=== PATIENT | female | born 1955 | race Caucasian/White ===

== ENCOUNTER → 2020-08-19 11:32 | Outpatient (CLI) | payer BC, SELFPAY ==
--- NOTE | ~2020-08-19 | US_ITS ---
EXAMINATION: US thyroid EXAM DATE: 08/19/2020 11:54 INDICATION: Fatigue, midline neck tenderness/ prominent thyroid. TECHNIQUE: Multiple grayscale and Doppler images of the thyroid were obtained (by a technologist who performed the scan) and subsequently reviewed. Individual nodules and recommendations may be reporte d in accordance with TI-RADS system as designated by the 2017 ACR White Paper TI-RADS committee. The re is no prior study for comparison. FINDINGS: Right thyroid lobe measures 4.9 x 1.4 x 1.5 cm, the left measuring 4.6 x 1.5 x 1.3 cm. Relatively ericka ogeneous thyroid echogenicity with left lobe anechoic foci 3 mm in size, benign. IMPRESSION: Unremarkable thyroid ultrasound exam. Reviewed, dictated and finalized at location A.
== END ==
PROVIDERS: PCP Family Medicine; Visit Provider Family Medicine
DX: R53.83 Other fatigue (principal); E04.9 Nontoxic goiter, unspecified
CPT/HCPCS: 76536

== ENCOUNTER 2020-11-06 10:11 | Emergency (ER) | payer BC, SELFPAY ==
--- NOTE | ~2020-11-06 | XR_ITS ---
EXAMINATION: XR ankle RT min 3V INDICATION: Right ankle pain TECHNIQUE: Four views of the right ankle are obtained COMPARISON: None available FINDINGS: Bone alignment is normal. No ankle fracture is identified. The soft tissues are unremarkabl e. Dorsal and plantar calcaneal enthesophytes are noted. IMPRESSION: 1. No acute osseous abnormality of the ankle. Reviewed, dictated and finalized at location A.
--- NOTE | ~2020-11-06 | XR_ITS ---
EXAMINATION: XR foot RT min 3V DATE: 11/06/2020 10:42 INDICATION: Right foot pain TECHNIQUE: Dorsoplantar, lateral, and 2 oblique views of the right foot were obtained. COMPARISON: None. FINDINGS: There is mild cortical irregularity at the lateral base of the fifth metatarsal. Bone align ment is normal. There is mild osteoarthritis at the first metatarsophalangeal joint as well as severa l interphalangeal joints. Dorsal and plantar calcaneal enthesophytes are noted. IMPRESSION: 1. Mild cortical irregularity at the lateral base of the fifth metatarsal which could reflect age-ind eterminate fracture. Reviewed, dictated and finalized at location A. IMPRESSION: 1. Mild cortical irregularity at the lateral base of the fifth metatarsal which could reflect age-indeterminate fracture.
[2020-11-06 10:19] VITALS: BP 194/73; PULSE 80; RESP 18; TEMP 36.6; O2SAT 95
--- NOTE | 2020-11-06 11:30 | ED.GENADULT ---
HPI - General Adult General Chief complaint: Extremity Injury, Lower Stated complaint: right foot pain Time Seen by Provider: 11/06/20 10:18 Source: patient and RN notes reviewed Mode of arrival: ambulatory Limitations: no limitations History of Present Illness HPI narrative: Patient is 65-year-old female who presents to emergency department for evaluation of right midfoot pain along the plantar aspect worse with weightbearing and activity injured the foot while mis-stepping a day ago has continued to have pain has not been seen for this complaint is not taken anything for symptoms presents in no distress has been able to bear weight Related Data Home Medications Medication Instructions Recorded Confirmed aspirin 81 mg tablet,delayed 81 mg PO DAILY 11/03/20 11/03/20 release exenatide microspheres 2 mg/0.85 2 mg SUBCUT WEEKLY 11/03/20 11/03/20 mL subcutaneous auto-injector fluticasone 500 mcg-salmeterol 50 1 inh INHALATION Q12H 11/03/20 11/03/20 mcg/dose blistr powdr for inhalation gabapentin 300 mg capsule 300 mg PO TID 11/03/20 11/03/20 psyllium husk 3.4 gram/5.4 gram 1 tbsp PO BID 11/03/20 11/03/20 oral powder biotin 1 mg PO DAILY 11/06/20 Allergies Allergy/AdvReac Type Severity Reaction Status Date / Time tetanus toxoid, adsorbed Allergy Mild Swelling/REDNESS Verified 11/06/20 10:26 AT SITE oxaliplatin Allergy Other Verified 11/06/20 10:31 Review of Systems Review of Systems: All systems reviewed & are unremarkable except as noted in HPI and below PMFSH Past Medical History Medical History BRCA gene mutation positive in female CKD (chronic kidney disease) stage 3, GFR 30-59 ml/min Compulsive buying Compulsive eating patterns Encounter for vaccination Hot flashes due to surgical menopause Ocular migraine VIOLETTE on CPAP Polypharmacy Post-phlebitic syndrome Surgical History Surgical History H/O: hysterectomy Family History Family History Father Patient's father is Other Depression Diabetes mellitus Family history of cardiovascular disease Family history of malignant neoplasm Malignant neoplasm of prostate Social History Social History Smoking status: Former smoker Smoking end date: 05/06/12 Alcohol intake: never Gender identity (if verbalized by the patient): Female Exam Narrative: Exam Narrative: GENERAL: Well-appearing, well-nourished, and in no acute distress. HEAD: Normocephalic, atraumatic. EYES: PERRLA and EOMI. ENT: Nares clear, no rhinorrhea or epistaxis. Mucous membranes moist. CHEST: Clear to auscultation. No respiratory distress. No wheezes rales or rhonchi HEART: Regular rate and rhythm. No murmur heard. Normal peripheral pulses. EXTREMITIES: Normal range of motion. No edema. Tenderness of the plantar aspect of the midfoot remainder of foot and ankle nontender no deformities. No tender at the base of the fifth metatarsal SKIN: Warm, dry, no rash. NEURO: No focal deficits. Alert and oriented x3. Neurovascularly intact PSYCH: Normal mood and affect. Course Course Emergency Course: Patient in the room no distress aware of case findings treatment plan diagnosis agreeing to follow-up as instructed Vital Signs Vital signs: Vital Signs Temperature 97.9 F 11/06/20 10:19 Pulse Rate 80 11/06/20 10:19 Respiratory Rate 18 11/06/20 10:19 Blood Pressure 194/73 H 11/06/20 10:19 Pulse Oximetry 95 11/06/20 10:19 Temperature 97.9 F 11/06/20 10:19 Pulse Rate 80 11/06/20 10:19 Respiratory Rate 18 11/06/20 10:19 Blood Pressure 194/73 H 11/06/20 10:19 Pulse Oximetry 95 11/06/20 10:19 Medical Decision Making MDM Narrative Medical decision making narrative: Patients injury or pain i
[2020-11-06 11:31] VITALS: BP 164/86; PULSE 64; RESP 18; O2SAT 98
[2020-11-06 11:38] VITALS: BP 164/84; PULSE 64; RESP 18; O2SAT 99
== END 2020-11-06 11:39 | disposition home or self-care (01) ==
PROVIDERS: Emergency Provider Emergency Medicine; PCP Family Medicine
DX: M79.671 Pain in right foot (principal); N18.30 Chronic kidney disease, stage 3 unspecified; G47.30 Sleep apnea, unspecified
CPT/HCPCS: 73610; 73630; 99283

== ENCOUNTER 2022-04-09 00:28 | Day surgery (SDC) | payer BC, SELFPAY ==
[2022-03-21 13:50] VITALS: BMI 35.4
[2022-04-09 08:11] VITALS: BP 167/82; PULSE 82; RESP 18; TEMP 36.1; O2SAT 96; BMI 35.6
[2022-04-09] MEDS: LACTATED RINGERS 1,000 ML 150 ML IV CONT (08:21)
--- NOTE | 2022-04-09 08:43 | WPDANESEPPF ---
Anes - Initial Pre Proc Eval Procedure: Operation Date: 04/09/22 09:30 Proposed Procedures p Screening Colonoscopy - Santiago Gilbert MD Date/Time: 04/09/22 08:43 Surgeon: Santiago Gilbert MD Pre Op Diagnosis: hx of colon cancer Patient Data Age: 66 Gender: F Height: 1.75 m Weight: 109.5 kg Last Vital Signs Temp 36.1 C L 04/09/22 08:11 Pulse 82 04/09/22 08:11 Resp 18 04/09/22 08:11 BP 167/82 H 04/09/22 08:11 Pulse Ox 96 04/09/22 08:11 O2 Del Method Room Air 04/09/22 08:11 Allergies Allergy/AdvReac Type Severity Reaction Status Date / Time tetanus toxoid, adsorbed Allergy Mild Swelling/REDNESS Verified 04/09/22 08:10 AT SITE oxaliplatin Allergy Other Verified 04/09/22 08:10 Home Medications Medication Instructions Recorded Confirmed Type ondansetron HCl 4 mg tablet 4 mg PO Q6H PRN nausea and 02/22/21 04/09/22 Rx (Zofran) vomiting #30 tabs tramadol 50 mg tablet 50 mg PO Q8H PRN pain #30 tabs 05/26/21 04/09/22 Rx psyllium husk 3.4 gram/5.4 gram 1 tbsp PO BID PRN Fatigue 08/15/21 04/09/22 History oral powder (Metamucil) topiramate 25 mg tablet (Topamax) 25 mg PO TID #90 tabs 10/09/21 04/09/22 Rx fluticasone 500 mcg-salmeterol 50 1 inh inhalation Q12H 11/07/21 04/09/22 History mcg/dose blistr powdr for inhalation (Advair Diskus) omeprazole 20 mg capsule,delayed 20 mg PO DAILY #30 caps 11/17/21 04/09/22 Rx release alprazolam 0.25 mg tablet 0.25 mg PO DAILY PRN anxiety #30 11/22/21 04/09/22 Rx tabs propranolol 60 mg capsule,24 See Rx Instructions .Route 01/02/22 04/09/22 Rx hr,extended release .COMPLEX #90 caps levothyroxine 75 mcg tablet See Rx Instructions .Route 01/26/22 04/09/22 Rx .COMPLEX #90 tabs duloxetine 60 mg capsule,delayed See Rx Instructions .Route 02/13/22 04/09/22 Rx release .COMPLEX #90 caps sodium,potassium,mag sulfates 17.5 See Rx Instructions PO .COMPLEX 02/20/22 04/09/22 Rx gram-3.13 gram-1.6 gram oral soln #354 mL (Suprep Bowel Prep Kit) amlodipine 5 mg tablet 5 mg PO DAILY #90 tabs 03/17/22 04/09/22 Rx nortriptyline 10 mg capsule See Rx Instructions .Route 03/23/22 04/09/22 Rx .COMPLEX #90 caps Patient hx anesthesia problems: none Family hx anesthesia problems: none Results Review: All pre-operative results and documents have been reviewed as part of the pre-operative evaluation. [facility] Past Medical History Medical History BRCA gene mutation positive in female Breast cancer CKD (chronic kidney disease) stage 3, GFR 30-59 ml/min Colon cancer Compulsive buying Compulsive eating patterns Diabetes mellitus Encounter for vaccination History of breast cancer History of colon cancer in adulthood Hot flashes due to surgical menopause Hyperalgesia Ocular migraine VIOLETTE on CPAP Polypharmacy Post-phlebitic syndrome Postnasal drip Surgical History Surgical History (Updated 04/09/22 @ 08:44 by Alverto Padilla MD) H/O: hysterectomy History of colon resection Family History Family History Father Patient's father is Cancer Diabetes mellitus Hypertension Mother Diabetes mellitus Depression Cerebrovascular accident Heart disease Alzheimer disease Sibling Cancer Depression Thyroid disorder Daughter Thyroid disorder Grandparent Cancer Depression Heart disease Other Family history of cardiovascular disease Family history of malignant neoplasm Malignant neoplasm of prostate Social History Social History Smoking packs per day: 1 Smoking cigarettes per day: 20.0 Years smoked: 40 Smoking pack-years: 40.00 Smoking status: Former smoker Tobacco type: cigarettes Smoking end date: 05/06/12 Alcohol intake: former Substance use: never Substance use type: does not use Living arrangements: a
--- NOTE | 2022-04-09 08:57 | PM.HPGS ---
History of Present Illness History of Present Illness Consent: Risks, benefits, and alternatives have been discussed and questions answered. Patient agrees to proceed with procedure. Chief complaint: hx of colon cancer Narrative: Aleah Gerber is a 66 year old female Presents for screening colonoscopy. Patient has a history of colon cancer resected 2018. Patient reports that her current weight appetite and bowel movements are normal. Patient denies abdominal pain. She has had no bleeding. Family history noncontributory. Patient presents today for surveillance colonoscopy. Review of Systems Review of Systems: Review of systems noncontributory. [facility] Past Medical History Medical History (Updated 04/09/22 @ 08:59 by Santiago Gilbert MD) BRCA gene mutation positive in female Breast cancer CKD (chronic kidney disease) stage 3, GFR 30-59 ml/min Colon cancer Compulsive buying Compulsive eating patterns Diabetes mellitus Encounter for vaccination History of breast cancer History of colon cancer in adulthood Hot flashes due to surgical menopause Hyperalgesia Ocular migraine VIOLETTE on CPAP Polypharmacy Post-phlebitic syndrome Postnasal drip Surgical History Surgical History (Updated 04/09/22 @ 08:44 by Alverto Padilla MD) H/O: hysterectomy History of colon resection Family History Family History Father Patient's father is Cancer Diabetes mellitus Hypertension Mother Diabetes mellitus Depression Cerebrovascular accident Heart disease Alzheimer disease Sibling Cancer Depression Thyroid disorder Daughter Thyroid disorder Grandparent Cancer Depression Heart disease Other Family history of cardiovascular disease Family history of malignant neoplasm Malignant neoplasm of prostate Social History Social History Smoking packs per day: 1 Smoking cigarettes per day: 20.0 Years smoked: 40 Smoking pack-years: 40.00 Smoking status: Former smoker Tobacco type: cigarettes Smoking end date: 05/06/12 Alcohol intake: former Substance use: never Substance use type: does not use Living arrangements: alone Gender identity (if verbalized by the patient): Female Spiritual care concerns: No Meds Home Medications and Allergies Home Medications Medication Instructions Recorded Confirmed Type ondansetron HCl 4 mg tablet 4 mg PO Q6H PRN nausea and 02/22/21 04/09/22 Rx (Zofran) vomiting #30 tabs tramadol 50 mg tablet 50 mg PO Q8H PRN pain #30 tabs 05/26/21 04/09/22 Rx psyllium husk 3.4 gram/5.4 gram 1 tbsp PO BID PRN Fatigue 08/15/21 04/09/22 History oral powder (Metamucil) topiramate 25 mg tablet (Topamax) 25 mg PO TID #90 tabs 10/09/21 04/09/22 Rx fluticasone 500 mcg-salmeterol 50 1 inh inhalation Q12H 11/07/21 04/09/22 History mcg/dose blistr powdr for inhalation (Advair Diskus) omeprazole 20 mg capsule,delayed 20 mg PO DAILY #30 caps 11/17/21 04/09/22 Rx release alprazolam 0.25 mg tablet 0.25 mg PO DAILY PRN anxiety #30 11/22/21 04/09/22 Rx tabs propranolol 60 mg capsule,24 See Rx Instructions .Route 01/02/22 04/09/22 Rx hr,extended release .COMPLEX #90 caps levothyroxine 75 mcg tablet See Rx Instructions .Route 01/26/22 04/09/22 Rx .COMPLEX #90 tabs duloxetine 60 mg capsule,delayed See Rx Instructions .Route 02/13/22 04/09/22 Rx release .COMPLEX #90 caps sodium,potassium,mag sulfates 17.5 See Rx Instructions PO .COMPLEX 02/20/22 04/09/22 Rx gram-3.13 gram-1.6 gram oral soln #354 mL (Suprep Bowel Prep Kit) amlodipine 5 mg tablet 5 mg PO DAILY #90 tabs 03/17/22 04/09/22 Rx nortriptyline 10 mg capsule See Rx Instructions .Route 03/23/22 04/09/22 Rx .COMPLEX #90 caps Allergies Allergy/AdvReac Type Severity Reaction Status Date / Time tetanus toxoid, adsorbed Allergy Mild Swelling/REDNESS Verifi
[2022-04-09 09:54] VITALS: BP 120/57; PULSE 77; RESP 19; O2SAT 96
[2022-04-09 10:04] VITALS: BP 110/55; PULSE 66; RESP 18; O2SAT 97
[2022-04-09 10:14] VITALS: BP 112/58; PULSE 73; RESP 21; O2SAT 98
== END 2022-04-09 10:20 | disposition home or self-care (01) ==
PROVIDERS: PCP Internal Medicine; Visit Provider Internal Medicine Gastroenterology
PROC: 0DJD8ZZ Inspection of Lower Intestinal Tract, Via Natural or Artificial Opening Endoscopic (ICD-10-PCS; CPT 45378; principal; 2022-04-09 09:30)
DX: Z12.11 Encounter for screening for malignant neoplasm of colon (principal); K63.5 Polyp of colon; K64.8 Other hemorrhoids; Z98.0 Intestinal bypass and anastomosis status; Z90.49 Acquired absence of other specified parts of digestive tract; Z85.038 Personal history of other malignant neoplasm of large intestine; Z15.09 Genetic susceptibility to other malignant neoplasm; Z85.3 Personal history of malignant neoplasm of breast; E11.22 Type 2 diabetes mellitus with diabetic chronic kidney disease; N18.30 Chronic kidney disease, stage 3 unspecified; G47.33 Obstructive sleep apnea (adult) (pediatric); Z87.891 Personal history of nicotine dependence; E66.9 Obesity, unspecified; Z68.35 Body mass index [BMI] 35.0-35.9, adult
CPT/HCPCS: 45385; 88305; J2704; J7120

== ENCOUNTER 2023-07-23 11:00 | Outpatient (RCR) | payer MEDICARE, SELFPAY ==
--- NOTE | 2023-06-18 09:26 | OPREHPOC ---
Outpatient Therapy Plan of Care This is a Multidisciplinary Plan of Care that may contain components documented by all disciplines (PT, OT, and ST.) PT Problem 1 PT Problem #1 Knowledge Deficit PT Goal 1 Goal Pt to be IND with issued HEP Target Visit 8 PT Problem 2 PT Problem #2 Pain PT Goal 1 Goal Pt to report back pain no greater than 3/10 in the last week. Target Visit 8 PT Goal 2 Goal Pt to report 75% improvement in symptoms when transitioning from sit <> stand. Target Visit 8 PT Problem 3 PT Problem #3 Impaired Functional Mobil PT Goal 1 Goal Pt to demonstrate functional lift and carry with 20lb without an increase in symptoms. Target Visit 8 PT Problem 4 PT Problem #4 Impaired Gait PT Goal 1 Goal Pt to demonstrate neutral alignment during upright standing. Target Visit 8
--- NOTE | 2023-06-18 09:26 | PTOPEVAL1 ---
Assessment and note entered by Surya Blanco, PT, DPT Evaluation Information Assessment Status Evaluation Diagnosis low back pain, spinal stenosis Onset chronic Subjective Information Pt states 90% of the time when she gets up from a sitting position, she can take a few steps without issues, but then she has to stop cause her zenaida legs get tingly (anterior thigh), she states she stands there for 20-30s slightly bending forward, then she can walk normally. She can walk/stand without limitations, once she gets past the first 1-2 minutes. Reported Pain Level Pain Score 0: Self Report Assessment PT Clinical Summary Aleah presents to therapy today for her initial evaluation with a diagnosis of lumbar spinal stenosis, she reports symptoms consistent with this diagnosis. She stands with an anterior weight shift, increased lumbar lordosis, and anterior pelvis. She demonstrates poor core strength and poor control with functional tasks. Skilled therapy services are indicated to address the deficits noted above, to improve core strength, to manage pain, and to return to PLOF. Plan of Care Interventions Electrical Stimulation,Gait Training,Hot Pack/Cold Pack,Manual Therapy,Mechanical Traction,Neuro Re- education,Patient/Caregiver Educati,Therapeutic Activities,Therapeutic Exercise PT Services Indicated Yes Treatment Frequency and 2x/wk for 8 visits. Duration These treatments will address the objective and functional deficits as defined above. The patient will be advanced safely and appropriately in order for the patient to progress towards his/her prior level of function. Additional exercises will be introduced and as well as a comprehensive home exercise program upon discharge, if needed, ?to ensure carryover of functional gains achieved in the clinic. This treatment plan has been reviewed and agreement upon by the patient.
--- NOTE | 2023-07-05 12:36 | PCPTNOTE ---
Patient called to cancel this date due due to other health concerns.
--- NOTE | 2023-07-08 08:52 | PCPTNOTE ---
Patient called & cancelled scheduled appointment this date due to waiting for doctor to give her test results prior to continuing.
--- NOTE | 2023-07-15 12:59 | PCPTNOTE ---
Patient called & cancelled scheduled appointment this date due to getting her appointment time confused. She has been rescheduled.
--- NOTE | 2023-07-23 14:38 | PTOPDC ---
Assessment and note entered by Surya Blanco, PT, DPT Evaluation Information Assessment Status Discharge Diagnosis low back pain, spinal stenosis Onset chronic Subjective Information Pt states when she remembers to do the correct things about her posture and body mechanics she can work to avoid her pain. She states when she does her exercises she has little to no pain. She states she is able to ride a bike now for the first time in many years. When she forgets and moves into poor positions she will get pain like before. Reported Pain Level Pain Score 0: Self Report Assessment PT Clinical Summary Aleah presents to therapy today for her progress report following 7 visits of skilled therapy to treat her diagnosis of lumbar spinal stenosis. She reports and demonstrates a good understanding of proper standing and lifting postures. She reports no pain when her is alert of her body positions. She has met or progressed well towards her therapy goals and no longer requires skilled therapy services. She will be discharged at this time.
== END 2023-07-23 14:54 | disposition home or self-care (01) ==
LOC: ANHGOSHPT 11:00
PROVIDERS: PCP Internal Medicine; Visit Provider Internal Medicine
DX: M48.00 Spinal stenosis, site unspecified (principal)
CPT/HCPCS: 97110; 97112; 97161; 97530

== ENCOUNTER 2023-11-18 11:08 | Outpatient (CLI) | payer MEDICARE, SELFPAY ==
[2023-11-18 16:01] LABS: Erythrocyte Sedimentation Rate 43 mm/hr (0-20)
[2023-11-21 03:18] LABS: Triiodothyronine T3 Free 2.2 pg/mL (2.3-4.2)
== END 2023-11-18 11:09 | disposition home or self-care (01) ==
LOC: ANHGOSHLAB 11:10
PROVIDERS: PCP Internal Medicine; Visit Provider Internal Medicine
DX: E03.9 Hypothyroidism, unspecified (principal); R51.9 Headache, unspecified
CPT/HCPCS: 36415; 84481; 85652

== ENCOUNTER 2024-02-17 13:47 | Outpatient (CLI) | payer MEDICARE, SELFPAY ==
--- NOTE | ~2024-02-17 | US_ITS ---
US renal BI Ordering provider: Batsheva Mike MD History: . N18.32 - Chronic kidney disease, stage 3b . Comparison: None. Technique: Ultrasound bilateral kidneys. Findings: RIGHT KIDNEY: Measures 11.8x 5.9x 5.7 cm in length which is normal in size. Simple cyst is seen in th e lower pole measuring 1 x 1 x 1 cm.. No renal mass or visualized echogenic stones. Otherwise, normal echotexture and contour. No hydronephrosis. Normal renal cortical thickness. LEFT KIDNEY: Measures 10.5x 5.4x 4.6 cm in length which is normal in size. No renal cysts. No renal m ass or visualized echogenic stones. Otherwise, normal echotexture and contour. No hydronephrosis. sergey al cortical thinning. Cortex measures 0.8 cm. BLADDER: Normal. Ureteral jets were seen bilaterally. The bladder measures 11 x 9 x 8 cm with a Volum e of 643 mL.. IMPRESSION: left kidney thin cortex. Simple cyst in the right kidney lower pole. Reviewed, dictated and finalized at location A.
== END 2024-02-17 13:48 | disposition home or self-care (01) ==
PROVIDERS: PCP Internal Medicine; Visit Provider Internal Medicine Nephrology
DX: R93.422 Abnormal radiologic findings on diagnostic imaging of left kidney (principal); N28.1 Cyst of kidney, acquired; I12.9 Hypertensive chronic kidney disease with stage 1 through stage 4 chronic kidney disease, or unspecified chronic kidney disease; E11.22 Type 2 diabetes mellitus with diabetic chronic kidney disease; N18.32 Chronic kidney disease, stage 3b
CPT/HCPCS: 76775

== ENCOUNTER 2024-04-16 13:29 | Outpatient (CLI) | payer MEDICARE, SELFPAY ==
--- NOTE | ~2024-04-16 | XR_ITS ---
EXAMINATION: XR chest 2V 04/16/2024 13:52 INDICATION: Fever PROCEDURE: 2 view chest COMPARISON: 09/26/2018 FINDINGS: The lungs are clear. The cardiomediastinal silhouette is within normal limits. There are no pleural effusions. There is no pneumothorax suspected. There is dextroscoliosis of the thoracic spine. IMPRESSION: 1: NO ACUTE CARDIOPULMONARY DISEASE. Reviewed, dictated and finalized at location B. D LABORER
== END 2024-04-16 13:30 | disposition home or self-care (01) ==
PROVIDERS: PCP Internal Medicine; Visit Provider Clinical Nurse Specialist
DX: R50.9 Fever, unspecified (principal)
CPT/HCPCS: 71046

== ENCOUNTER 2024-04-19 16:12 | Emergency (ER) | payer MEDICARE, SELFPAY ==
[2024-04-19] VITALS (9 sets, daily range): BP systolic 119–135; BP diastolic 56–76; PULSE 73–89; RESP 16–21; TEMP 36.4; O2SAT 95–100
--- NOTE | ~2024-04-19 | CT_ITS ---
EXAMINATION: CTA chest PE protocol DATE: 04/19/2024 18:40 INDICATION: dyspnea/HX OF PE TECHNIQUE: Computed tomography angiography (CTA) of the chest was performed with 100 mL Omnipaque-350 intravenous contrast timed to evaluate the pulmonary arteries. Coronal maximum intensity projection 3D-reconstructions were created by the technologist. The dose-length product (DLP) was 381.84 mGy-cm. Automated exposure control and iterative reconstruction technique were employed. COMPARISON: X-ray chest, 1224; CT cap 11/02/2017. FINDINGS: Lung parenchyma and airways: Dependent and medial subsegmental consolidation in the right lower lobe with scattered areas of centrilobular nodular opacities and groundglass opacities. Patent airways. Br onchial wall thickening. Mild septal thickening. Pleura: Unremarkable. Thoracic inlet, axillae and chest wall: Status post bilateral mastectomy. 1.1 x 6.1 x 6.3 cm fluid co llection in the subcutaneous fat of the left anterolateral chest. Thoracic aorta: No significant dilation. No dissection. Mediastinum: Normal. Heart and pericardium: Minimal aortic valve calcification. Coronary artery calcifications: Mild. Upper abdomen: Cholelithiasis, without inflammatory changes. Bones: No acute osseous finding. Pulmonary arteries: Study quality: Adequate. No pulmonary emboli detected. IMPRESSION: No CT evidence of acute pulmonary embolus. Right lower lobe opacities concerning for infection or aspiration. Mild interstitial edema and/or bro nchiolitis. Subcutaneous fluid collection in the subcutaneous fat of the left anterolateral chest, May represent a chronic postoperative seroma. Correlate for signs of infection. Reviewed, dictated and finalized at location [facility] [employer] IMPRESSION: No CT evidence of acute pulmonary embolus. Right lower lobe opacities concerning for infection or aspiration. Mild interst itial edema and/or bronchiolitis. Subcutaneous fluid collection in the subcutaneous fat of the left anterolateral chest, May represent a chronic postoperative seroma. Correlate for signs of in fection.
--- NOTE | 2024-04-19 17:31 | ECG_ITS ---
Test Date: 2024-04-19 18:02:44 Measurements Intervals [place] Rate: 75 P: 41 OK: 194 QRS: -17 QRSD: 84 T: 31 QT: 347 QTc: 389 Interpretive Statements SINUS RHYTHM No previous ECG available for comparison Electronically Signed On 04-19-2024 22:03:00 CONTACT WORKER by Mari Velarde M.D.
--- NOTE | 2024-04-19 17:33 | ED_ITS ---
HPI - SOB/Dyspnea General Chief Complaint: Shortness of Breath/Dyspnea Stated Complaint: sob Time Seen by Provider: 04/19/24 16:38 History of Present Illness HPI Narrative: Patient is a 68-year-old female who presented to the ER with complaints of shortness of breath. She reports she has a history of COPD and had a chest x-ray ordered by her PCP on . At that time she was also started on a Z-Jose Juan. Patient reports her strong, productive cough got better after I started the antibiotics, but this morning I started having an exacerbation. She reports she does not have any inhalers home. 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 Patient currently endorses a dry, nonproductive cough. She reports she still has 2 days on her Z-Jose Juan. Patient denies any chest pain, back pain, history of CHF. She reports she does think she has had fevers intermittently throughout the week. Patient's medical history includes breast cancer and colon cancer. Related Data Allergies Allergy/AdvReac Type Severity Reaction Status Date / Time tetanus toxoid, adsorbed Allergy Mild Swelling/REDNESS Verified 04/19/24 16:59 AT SITE oxaliplatin Allergy Other Verified 04/19/24 16:59 Review of Systems 2 Review of Systems: All systems reviewed & are unremarkable except as noted in HPI and below PMFSH Past Medical History Medical History Cerebrovascular disease Hyperlipidemia associated with type 2 diabetes mellitus Essential hypertension Breast cancer Postnasal drip Hyperalgesia Diabetes mellitus History of colon cancer in adulthood History of breast cancer Breast cancer Colon cancer Ocular migraine Encounter for vaccination CKD (chronic kidney disease) stage 3, GFR 30-59 ml/min VIOLETTE on CPAP Polypharmacy Hot flashes due to surgical menopause Post-phlebitic syndrome Compulsive eating patterns Compulsive buying BRCA gene mutation positive in female Surgical History Surgical History History of bilateral mastectomy History of colon resection H/O: hysterectomy Family History Family History Father Patient's father is Cancer Diabetes mellitus Hypertension Mother Diabetes mellitus Depression Cerebrovascular accident Heart disease Alzheimer disease Sibling Cancer Depression Thyroid disorder Daughter Thyroid disorder Grandparent Cancer Depression Heart disease Other Family history of cardiovascular disease Family history of malignant neoplasm Malignant neoplasm of prostate Social History Social History Smoking packs per day: 1 Smoking cigarettes per day: 20.0 Years smoked: 40 Smoking pack-years: 40.00 Smoking status: Former smoker Tobacco type: cigarettes Smoking end date: 05/06/12 Alcohol intake: former Substance use: never Substance use type: does not use Do You Feel Safe in your Home?: Yes Lack of Transportation: No Lack of Food: Never True Current Housing: I Have Housing Concerned About Future Housing: No Difficulty Paying Gas/Electric Bills: No Difficulty Paying for Meds: YES Currently Unemployed: No Education: High School Diploma/GED Difficulty w/ Childcare or Family Care: No Living arrangements: alone Gender identity (if verbalized by the patient): Female Spiritual care concerns: No Exam 2 Narrative: GENERAL: Well appearing, well-nourished, non-toxic, in no acute distress. HEAD: Normocephalic, atraumatic. NECK: Supple. No adenopathy, no masses. RESPIRATORY: Airway patent, respirations nonlabored. Clear to auscultation bilaterally, no rales, rhonchi, wheezing. CARDIOVASCULAR: Regular rate and rhythm without murmurs, rubs, or gallops. Peripheral pulses 2+ and equal bilaterally. ABDOMINAL: Soft, nontender, nondistended, no hepatosplenomegaly. Normoactive BS. MUSCULOSKELETAL: Moves all extremities. Strength/ROM intact without gross deformities. SKIN: Warm, dry, normal color. No rashes. NEURO: A&O X3. Speech clear. Cranial nerves II-XII grossly intact. No ataxic movements. PSYCHIATRIC: Appropriate mood and affect. Normal interaction. Course Vital Signs Vital signs: Vital Signs Temperature 36.4 C 04/19/24 16:14 Pulse Rate 89 04/19/24 16:14 Respiratory Rate 16 04/19/24 16:14 Blood Pressure 131/69 04/19/24 16:14 Pulse Oximetry 98 04/19/24 16:14 Oxygen Delivery Room Air 04/19/24 16:14 Temperature 36.4 C 04/19/24 16:14 Pulse Rate 82 04/19/24 20:06 Respiratory Rate 21 H 04/19/24 20:06 Blood Pressure 129/72 04/19/24 20:06 Pulse Oximetry 95 04/19/24 20:06 Oxygen Delivery Room Air 04/19/24 16:56 MDM - SOB/Dyspnea MDM Narrative Medical decision making narrative: Patient is a 68-year-old female who presented to the ER with complaints of shortness of breath. She reports she has a history of COPD and had a chest x-ray ordered by her PCP on . At that time she was also started on a Z-Jose Juan. Patient reports her strong, productive cough got better after I started the antibiotics, but this morning I started having an exacerbation. She reports she does not have any inhalers home. 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 Patient currently endorses a dry, nonproductive cough. She reports she still has 2 days on her Z-Jose Juan. Patient denies any chest pain, back pain, history of CHF. She reports she does think she has had fevers intermittently throughout the week. Patient's medical history includes breast cancer and colon cancer. Labs Ordered: CBC, CMP, PTT, INR, Magnesium, urinalysis, lactic acid, BNP, blood cultures Imaging Ordered: CTA PE scan Results: Pt's CTA PE scan indicates No CT evidence of acute pulmonary embolus. Right lower lobe opacities concerning for infection or aspiration. Mild interstitial edema and/or bronchiolitis. Subcutaneous fluid collection in the subcutaneous fat of the left anterolateral chest, May represent a chronic postoperative seroma. Correlate for signs of infection. Diagnosis: community acquired pneumonia, COPD exacerbation, UTI, yeast infection Risks: BAP-65 Score for Acute Exacerbation of COPD from [employer] on 04/19/2024 All calculations should be rechecked by clinician prior to use RESULT SUMMARY: Class II BAP 0, age >=5 years Routine management of COPD exacerbation 1.0 % In-hospital mortality 0.2% requiring intubation within 48 hrs INPUTS: BUN >=5 mg/dL (8.9 mmol/L) ?> 0 = No Altered mental status ?> 0 = No Pulse >=09 beats/min ?> 0 = No Age, years ?> 1 = >=5 CURB-65 Score for Pneumonia Severity from [employer] on 04/19/2024 All calculations should be rechecked by clinician prior to use RESULT SUMMARY: 2 points Moderate risk group: 6.8% 30-day mortality. Consider inpatient treatment or outpatient with close followup. INPUTS: Confusion ?> 0 = No BUN >19 mg/dL (>7 mmol/L urea) ?> 1 = Yes Respiratory Rate >=0 ?> 0 = No Systolic BP <90 mmHg or Diastolic BP <=0 mmHg ?> 0 = No Age >=5 ?> 1 = Yes Consults: None needed Patient Education/Shared MDM: DuoNeb ordered for patient, along with Solu- Medrol. Patient endorses substantial release in her breathing after medication administration. Results of CT scan shared with the patient. Patient will receive IV antibiotics to treat her pneumonia and UTI. She will be sent home with oral antibiotics, Diflucan and inhaler. Patient advised to complete her Z- Jose Juan at home. She was also advised to follow-up her primary care provider as soon as possible. Patient verbalized understanding and is in agreement with plan. All questions answered. Vital signs stable at time of discharge. Differential Diagnosis Differential diagnosis: Likely acute exacerbation of chronic obstructive airways disease, congestive heart failure, community acquired pneumonia, asthma with exacerbation, pulmonary embolism and other (UTI) Lab Data Attestation: I reviewed the patient's lab results. 04/19/24 17:52 04/19/24 17:52 Labs: Lab Results 04/19/24 04/19/24 Range/Units 17:52 18:20 WBC 12.2 H (4.5-10.0) K/mm3 RBC 3.80 L (4.2-5.4) M/mm3 Hgb 11.3 L (12.0-15.0) g/dL Hct 34.3 L (37.0-47.0) % MCV 90.3 (80-100) fl MCH 29.7 (26-34) pg MCHC 32.9 (32-36) g/dl RDW 12.9 (11.5-14.5) % Plt Count 283 (150-375) k/mm3 MPV 9.1 (7.4-10.4) fl Immature Gran % (Auto) 0.7 H (0-0.5) % Neut % (Auto) 78.7 H (45.5-73.1) % Lymph % (Auto) 10.1 L (18.3-44.2) % [place] % (Auto) 7.5 (2.6-8.5) % Eos % (Auto) 2.5 (0-4.4) % Baso % (Auto) 0.5 (0.2-1.2) % Lymph # (Auto) 1.23 (0.9-3.2) K/mm3 [place] # (Auto) 0.9 H (0.1-0.6) K/mm3 Eos # (Auto) 0.3 (0-0.3) K/mm3 Baso # (Auto) 0.1 (0.0-0.1) K/mm3 Abs Immat Gran (auto) 0.09 H (0.00-0.031) K/mm3 Absolute Neuts (auto) 9.6 H (1.3-6.7) K/mm3 Absolute Nucleated RBC 0.000 (0.0-0.012) K/mm3 Nucleated RBC % 0.0 (0.0-0.2) % PT 14.9 H (11.1-14.7) Seconds INR 1.1 APTT 30.3 (22.3-36.8) Seconds Sodium 137 (137-145) mmol/L Potassium 3.9 (3.4-5.0) mmol/L Chloride 105 (98-107) mmol/L Carbon Dioxide 24 (22-30) mmol/L Anion Gap 8 (4-12) mmol/L BUN 20 H (7-17) mg/dL Creatinine 1.70 H (0.7-1.0) mg/dL Estim Creat Clear Calc 36 ml/min Estimated GFR 30 L (59 - ) Glucose 122 H (65-110) mg/dL Lactic Acid 1.1 (0.7-2.0) mmol/L Calcium 9.4 (8.4-10.2) mg/dL Magnesium 2.3 (1.6-2.3) mg/dL Total Bilirubin 0.9 (0.2-1.3) mg/dL AST 141 H (14-36) U/L ALT 89 H (6-35) U/L Alkaline Phosphatase 145 H (38-126) U/L Troponin I < 0.012 (0.000-0.034) ng/mL NT-Pro-B Natriuret Pep 100 (19.9-100) pg/mL Total Protein 8.0 (6.3-8.2) g/dL Albumin 3.8 (3.5-5.1) g/dL Urine Color Dark yellow (Yellow) Urine Appearance Cloudy H (Clear) Urine pH 5.5 (5.0-9.0) Ur Specific [place] 1.027 (1.001-1.035) Urine Protein 2+ H (Negative) mg/dL Urine Glucose (UA) Negative (Negative) mg/dL Urine Ketones Trace H (Negative) mg/dL Ur Blood (Man) Negative (Negative) Urine Nitrate Negative (Negative) Urine Bilirubin 1+ H (Negative) Urine Urobilinogen 2.0 H (<2.0) mg/dL Add Ur Microanalysis Reviewed Leukocyte Esterase Rfl 1+ H (Negative) BERT/UL Urine RBC 3-5 H (0-2) /hpf Urine WBC 11-20 H (0-3) /hpf Ur Squamous Epith Cells Moderate (Few) /hpf Urine Bacteria 3+ H /hpf Urine Casts 6-10 Urine Yeast (Budding) Present H (None) /hpf Imaging Data Attestation: I personally reviewed and interpreted this imaging study as follows: Radiologist's impression: Impressions Chest CTA 04/19/24 19:01 IMPRESSION: No CT evidence of acute pulmonary embolus. Right lower lobe opacities concerning for infection or aspiration. Mild interstitial edema and/or bronchiolitis. Subcutaneous fluid collection in the subcutaneous fat of the left anterolateral chest, May represent a chronic postoperative seroma. Correlate for signs of infection. Discharge Plan Discharge Clinical Impression: Community acquired bacterial pneumonia, Urinary tract infection, Yeast infection of the vagina, Acute exacerbation of chronic obstructive pulmonary disease Patient Disposition: Home, Self-Care Condition: Stable Instructions: Antibiotic Form, Urinary Tract Infection in Women (ED), COPD (Chronic Obstructive Pulmonary Disease) (ED), Community Acquired Pneumonia (ED) Additional Instructions: Please return to the ER with an worsening symptoms. Follow-up with primary care provider in the next 2-3 days. Take all medications as prescribed. Patient Language: Polish Prescriptions: No Action tramadol 50 mg tablet 50 mg PO Q8H PRN (Reason: pain) Qty: 30 0RF azithromycin 250 mg tablet See Rx Instructions PO .COMPLEX Qty: 6 0RF Rx Instructions: take 500 mg today (day 1), then 250 mg for 4 days (days 2-5) PO omeprazole 20 mg capsule,delayed release(DR/EC) 20 mg PO DAILY Qty: 30 3RF Rx Instructions: Around dinner time levothyroxine 75 mcg tablet See Rx Instructions .ROUTE .COMPLEX Qty: 90 1RF Dose Instruction: TAKE 1 TABLET BY MOUTH DAILY Rx Instructions: TAKE 1 TABLET BY MOUTH DAILY topiramate 25 mg tablet See Rx Instructions .ROUTE .COMPLEX Qty: 270 0RF Dose Instruction: TAKE 1 TABLET BY MOUTH THREE TIMES DAILY Rx Instructions: TAKE 1 TABLET BY MOUTH THREE TIMES DAILY alprazolam 0.25 mg tablet 0.25 mg PO DAILY PRN (Reason: anxiety) Qty: 30 0RF duloxetine 60 mg capsule,delayed release(DR/EC) See Rx Instructions .ROUTE .COMPLEX Qty: 90 1RF Dose Instruction: TAKE 1 CAPSULE BY MOUTH DAILY Rx Instructions: TAKE 1 CAPSULE BY MOUTH DAILY rosuvastatin 10 mg tablet 10 mg PO DAILY Qty: 90 3RF propranolol 60 mg capsule,extended release 24 hr See Rx Instructions .ROUTE .COMPLEX Qty: 180 1RF Dose Instruction: TAKE 1 CAPSULE BY MOUTH DAILY Rx Instructions: TAKE 1 CAPSULE BY MOUTH bid semaglutide 1 mg/dose (4 mg/3 mL) pen injector 1 mg subcut WEEKLY Qty: 3 1RF nortriptyline 10 mg capsule See Rx Instructions .ROUTE .COMPLEX Qty: 90 1RF Dose Instruction: TAKE 1 CAPSULE BY MOUTH EVERY NIGHT AT BEDTIME Rx Instructions: TAKE 1 CAPSULE BY MOUTH EVERY NIGHT AT BEDTIME amlodipine 5 mg tablet 5 mg PO DAILY Qty: 90 1RF Follow-up/Referrals: Dat Bneito, [Primary Care Provider] -
[2024-04-19] MEDS: IPRATROPIUM 0.5 MG/ALBUTEROL SULFATE 2.5 MG AMPUL.NEB 3 ML INHALATION (17:47)
[2024-04-19] MEDS: ALBUTEROL SULFATE NEB 2.5 MG/3 ML INH INHALATION (17:47)
[2024-04-19 17:59] LABS: Basophils Absolute Auto 0.1 K/mm3 (0.0-0.1); Basophils Percent Auto 0.5 % (0.2-1.2); Eosinophils Absolute Auto 0.3 K/mm3 (0-0.3); Eosinophils Percent Auto 2.5 % (0-4.4); Hematocrit 34.3 % (37.0-47.0); Hemoglobin 11.3 g/dL (12.0-15.0); Immature Granulocyte Absolute 0.09 K/mm3 (0.00-0.031); Immature Granulocyte Percent A 0.7 % (0-0.5); Lymphocytes Absolute Auto 1.23 K/mm3 (0.9-3.2); Lymphocytes Percent Auto 10.1 % (18.3-44.2); Mean Corpuscular HGB Conc 32.9 g/dl (32-36); Mean Corpuscular Hemoglobin 29.7 pg (26-34); Mean Corpuscular Volume 90.3 fl (80-100); Mean Platelet Volume 9.1 fl (7.4-10.4); Monocytes Absolute Auto 0.9 K/mm3 (0.1-0.6); Monocytes Percent Auto 7.5 % (2.6-8.5); Neutrophils Absolute Auto 9.6 K/mm3 (1.3-6.7); Neutrophils Percent Auto 78.7 % (45.5-73.1); Platelet Count Result 283 k/mm3 (150-375); Red Cell Distribution Width 12.9 % (11.5-14.5); White Blood Count 12.2 K/mm3 (4.5-10.0)
[2024-04-19 18:10] LABS: Alanine Aminotransferase 89 U/L (6-35); Albumin Level 3.8 g/dL (3.5-5.1); Alkaline Phosphatase 145 U/L (38-126); Anion Gap 8 mmol/L (4-12); Aspartate Amino Transferase 141 U/L (14-36); Bilirubin,Total 0.9 mg/dL (0.2-1.3); Blood Urea Nitrogen 20 mg/dL (7-17); Calcium 9.4 mg/dL (8.4-10.2); Carbon Dioxide 24 mmol/L (22-30); Chloride 105 mmol/L (98-107); Estimated CRCL calculation 36 ml/min; Estimated Glomerular Filt Rate 30; Glucose 122 mg/dL (65-110); Lactic Acid Reflex 1.1 mmol/L (0.7-2.0); Magnesium 2.3 mg/dL (1.6-2.3); Potassium 3.9 mmol/L (3.4-5.0); Sodium 137 mmol/L (137-145)
[2024-04-19] MEDS: methylPREDNISolone SOD SUCC 125 MG VIAL IV PUSH (18:14)
[2024-04-19 18:20] LABS: INR 1.1; NT Pro B Type Natriuretic Pept 100 pg/mL (19.9-100); Prothrombin Time 14.9 Seconds (11.1-14.7); Troponin I < 0.012 ng/mL (0.000-0.034)
[2024-04-19 18:21] LABS: Partial Thromboplastin Time 30.3 Seconds (22.3-36.8)
[2024-04-19 18:36] LABS: Add Urine Microscopic? YES; Appearance Urine Cloudy (Clear); Bacteria Urine 3+ /hpf; Bilirubin Urine 1+ (Negative); Blood Urine Negative (Negative); Budding Yeast Urine Present /hpf; Color Urine Dark Yellow (Yellow); Glucose Urine UA Negative (Negative); Ketones Urine Trace mg/dL (Negative); Leukocyte Esterase Ur 1+ LEU/UL (Negative); Need Manual Microscopic Reviewed; Nitrate Urine Negative (Negative); Protein Urine 2+ mg/dL (Negative); Specific Grav Ur 1.027 (1.001-1.035); Squamous Epithelial Cell Urine Moderate /hpf (Few); pH Urine 5.5 (5.0-9.0)
[2024-04-19] MEDS: AZITHROMYCIN 500 MG/NS 250 ML 500 MG/250 ML BAG 250 MG IVPB (20:01)
--- OUTSIDE RECORDS SUMMARY | 2024-04-24 13:34 | XMS_ITS | Encounter Summary ---
Author Organization [facility] Address [address] [place] [address] Phone Care Team Providers Care Water And Gas Helper Name Role Phone Aft, Kianna Machado MD PhD Unavailable [phone] Santigao Gilbert MD Unavailable [phone] Abbi Ventura MD Unavailable Montse Thompson MD Unavailable [phone] Lela Hardy MD PhD Unavailable [phone] Trena Obando MD Unavailable [phone] Dat Benito DO Primary Care Provider [phone] Encounter Details Date Type Department Care Team (Late st Contact Info) Description 02/25/[address] [id number] Uriel Corral Social History Tobacco Use Types Packs/Day Years Used Date Smoking Tobacco: Former Cigarettes 0.8 42 1 973 - 2015 Smokeless Tobacco: Never Alcohol Use Standard Drinks/Week Comments Not Currently 0 (1 standard drink = 0.6 oz pur e alcohol) socially AUDIT-C Answer Date Recorded Frequency of Alcohol Consumption Not on file 07/30/2023 Q2: How many drinks containi ng alcohol do you have on a typical day when you are drinking? Patient does not drink Frequency of Binge Drinking Not on file 07/05 Personal Safety Answer Date Recorded Have you ever been in or are you currently in a harmful physical or emotional relationship or is someone making you feel afraid or unsafe? Denies 08/12/2023 Comments No Sex and Gender Information Value Date Recorded Sex Assigned at Not on file 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 [employer] Gender Identity Not on file Sexual Orientation Not on file documented as of this encounter Miscellaneous Notes * Telephone Encounter - Uriel Corral - 02/25/2024 1:03 PM CDT 02/25/24: Patient called with MRI results. She denies any questions/concerns at this time. Uriel Wooten RN ----- Message from Jenny Quigley NP sent at 02/24/2024 2:52 PM CDT ----- Please call patient with results. Per Dr. Ventura's note if MRI of the chest wall and brachial plexus is negative then the patient likely has discomfort related to the nerve endings at the surgery site causing paresthesias, please make the patient aware of this. Thank you! ----- Message ----- From: Uriel Corral Sent: 02/24/2024 2:30 PM CDT To: Jenny Quigley NP; Abbi Ventura MD Please review and advise. MRI Brachial Plexus is negative also. documented in this encounter Plan of Treatment Not on file documented as of this encounter Visit Diagnoses Not on filedocumented in this encounter Care Teams Water And [employer] Helper Relationship Specialty Start Date End Date Dat Benito DO [address] [place] [address] PCP - General Internal Medicine 09/28/21 Aft, Kianna Machado MD PhD [address] [place] [address] Surgeon Surgical Oncology 11/22/17 Santiago Gilbert MD [address] [place], [place] [id number] Sql Tech Gastroenterology 11/22/17 Abbi Ventura MD [address] [facility] [address] [place] [address] Medical Oncologist/Director Of Reservations Medical Oncology 12/03/18 Montse Thompson MD [address] [facility] [address] [place] [address] Consulting Physician Gynecologic Oncology 12/03/18 Lela Hardy MD PhD [address] [facility] [address] [place], [place] [id number] Radiation Oncologist Radiation Oncology 12/23/18 Trena Obando MD [address] [place], [place] [id number] Consulting Physician Neurology 09/18/21 documented as of this encounter
--- OUTSIDE RECORDS SUMMARY | 2024-04-24 13:34 | XMS_ITS | Clinical Summary ---
Author Organization [facility] Address [address] [place] [address] Care Team Providers Care Forming Process Line Worker Name Role Phone Aft, Kianna aMchado MD PhD Unavailable [phone] Santiago Gilbert MD Unavailable [phone] Abbi Ventura MD Unavailable Montse Thompson MD Unavailable [phone] Lela Hardy MD PhD Unavailable [phone] Trena Obando MD Unavailable [phone] Dat Benito DO Primary Care Provider [phone] Allergies Active Allergy Reactions Criticality Noted Date Comments Oxaliplatin Swollen tongue High 04/23/2018 Throat swelling Tetanus Vaccines And Toxoid Swelling,Rash Medium 11/12 Medications ALPRAZolam (XANAX) 0.25 mg tablet Take 1 tablet (0.25 mg total) by mouth 3 (three) times a day as needed for anxiety 8 Active propranolol LA (INDERAL LA) 60 mg 24 hr capsuleIndicatio ns:Essential Tremor Take 1 capsule (60 mg total) by mouth 2 (two) times a day [address] (CYMBALTA) 60 mg capsuleIndicatio ns:Neuropathic Pain Take 1 capsule (60 mg total) by mouth nightly 1 Active traMADoL (ULTRAM) 50 mg tablet Take 1 tablet (50 mg total) by mouth every 8 (eight) hours as needed for pain 1 Active ondansetron (ZOFRAN) 4 mg tablet Take 1 tablet (4 mg total) by mouth every 8 (eight) hours as needed for vomiting or nausea 1 Active amLODIPine (NORVASC) 5 mg tabletIndication s:hypertension Take 1 tablet (5 mg total) by mouth every morning 2 Active nortriptyline (PAMELOR) 10 mg capsuleIndicatio ns:Postherpetic Neuralgia,and sleep Take 1 capsule (10 mg total) by mouth nightly 2 Active topiramate (TOPAMAX) 25 mg tabletIndication s:pain Take 1 tablet (25 mg total) by mouth 3 (three) times a day 2 Active fluticasone propionate (FLONASE) 50 mcg/actuation nasal sprayIndications :Allergic Rhinitis Administer 1 spray into each nostril as needed 2 Active omeprazole (PriLOSEC) 20 mg capsuleIndicatio ns:Stress Ulcer Prophylaxis Take 1 capsule (20 mg total) by mouth daily as needed 2 Active levothyroxine (SYNTHROID) 75 mcg tabletIndication s:hypothyroidism Take 1 tablet (75 mcg total) by mouth every morning 2 Active diphenhydrAMINE (BENADRYL) 25 mg capsuleIndicatio ns:allergies Take 1 tablet/capsule (25 mg total) by mouth as needed Active docusate sodium (COLACE) 100 mg capsuleIndicatio ns:constipation Take 1 capsule (100 mg total) by mouth 2 (two) times a day 30 capsule 3 Active Additional Information Patient taking differently:100 mg oral2 times daily PRN, constipation, Indications: constipation, Informant: Self, Reported on 08/01/2023 acetaminophen (TYLENOL) 500 mg tablet Take 1 tablet (500 mg total) by mouth as needed 3 Active albuterol HFA (PROVENTIL HFA,VENTOLIN HFA,PROAIR HFA) 90 mcg/actuation inhaler Inhale 2 puffs every 6 (six) hours as needed for wheezing 1 each 5 3 Active Ozempic 1 mg/dose (4 mg/3 mL) pen injector injection 3 Active rosuvastatin (CRESTOR) 10 mg tablet Take 1 tablet (10 mg total) by mouth daily Active fluticasone propion-salmeter oL (ADVAIR DISKUS) 500-50 mcg/dose diskus inhaler Inhale 1 puff 2 (two) times a day Rinse mouth with water after use. Do not swallow. 60 each 3 Active Active Problems Problem Noted Date Diagnosed Date Medication side effect 06/28/2023 Family history of pancreatic cancer 10/29/2022 Breast cancer of upper-inner quadrant of right female breast 06/13/2022 Paresthesia of left arm 12/09/2020 Neuropathy 10/25/2020 Amaurosis fugax 08/19/2020 Essential hypertension 08/19/2020 Hyperlipidemia 08/19/2020 VIOLETTE (obstructive sleep apnea) 11/12/2019 Encounter for follow-up exam ination after completed treatment for malignant neoplasm 03/18/2019 History of breast cancer 03/18/2019 Personal history of irradiation 03/18/2019 Atypical glandular cells of undetermined significance (YRN) on cervical Pap smear 10/27/2018 BRCA2 gene mutation positive in female 9 Hypomagnesemia 10/02/2018 Nipple discharge in female 08/17/2018 Drug-induced polyneuropathy 08/15/2018 Gait difficulty 08/15/2018 Antineoplastic chemotherapy induced anemia 07/24 Encounter for person encountering health service s 06/12/2018 Acute pulmonary embolism 05/28/2018 Leg weakness, bilateral 05/21/2018 Diarrhea 03/21/2018 Dehydration 03/14/2018 Hypokalemia 03/14/2018 Malignant neoplasm of descending colon (CMS/HCC) 11/29/2017 Malignant neoplasm of upper- inner quadrant of left breast in female, estrogen receptor negative 11/18/2017 Cancer Staging:Pathologic:Stage IIA(pT2, pN0(sn), cM0, G3, ER-, LA-, HER2-) - Signed by Roger Dorsey MD on 12/23/2018 Clinical:Stage IIB(cT2, cN0, cM0, G3, ER-, LA-, HER2-) - Signed by Lela Hardy MD PhD on 01/01/2019 Asthma-COPD overlap syndrome (CMS/HCC) Asthma Resolved Problems Problem Noted Date Diagnosed Date Resolved Date 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 Encounters Date Type Department Care Team Description 02/25/2024 Telephone [facility] [address] [place] [address] Uriel Corral 02/19/2024 1:43 PM CDT - 02/19/2024 11:59 PM CDT Hospital Encounter [facility] [address] [place] [id number] Malignant 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, estrogen receptor negative (HCC); Chest wall pain Discharge Disposition: Discharge to home or self care 02/05/2024 3:30 PM CDT Office Visit [facility] [address] [place] [address] Abbi Ventura MD 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) (Primary Dx); Malignant 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, estrogen receptor negative (HCC); Chest wall pain 02/05/2024 2:45 PM CDT Lab [address] [address] Malignant 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, estrogen receptor negative (HCC); 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) from Last 3 Months Immunizations Name Administration Dates Next Due Influenza, Quadrivalent, Gisela l Culture-based MDCK, Preservative Free, Antibiotic Free, Intramuscular 02/05/2019,02/20/2018 Influenza, Split 05/06/2017 Pneumococcal Conjugate PCV 13 02/05/2019 Surgical History Surgery Date Site/Laterality Comments COLONOSCOPY 05/06/2017 - 05/05/2018 INCONTINENCE SURGERY 05/06/2007 - 05/05/2008 TUBAL LIGATION 05/06/1991 - 05/05/1992 BLADDER SUSPENSION 05/06/2010 - 05/05/2011 HEMICOLECTOMY 12/27/2017 Left Laparoscopic left hemicolectomy INGUINAL HERNIA REPAIR 05/06/1969 - 05/05/1970 Right BREAST BIOPSY 11/12/2017 Left BREAST BIOPSY 05/06/2008 - 05/05/2009 Right Benign BREAST LUMPECTOMY 05/06/2017 - 05/05/2018 MASTECTOMY, PARTIAL 01/14/2018 Left Biopsy Breast Needle Localization partial mastectomy (L), Biopsy [place] Lymph Node With Lymphoscintigraphy (L), Insertion Port A Cath (R) with ultrasound and fluroscopy PORTACATH PLACEMENT 01/04/2018 - 02/02/2018 right upper chest PORTACATH PLACEMENT 05/06/2017 - 05/05/2018 Right HYSTERECTOMY W/ BILATERAL SALPINGOOPHORECTOMY 02/13/2019 Bilateral VAGINAL DELIVERY BREAST BIOPSY 04/13/2022 Right BREAST BIOPSY 11/11/2018 Left re-excision BREAST BIOPSY 01/14/2018 PORT REMOVAL 04/09/2019 COLON SURGERY 2018 HYSTERECTOMY 2018 or 2019 FLUID DRAIN SOFT TISSUE 07/17/2023 N/A ABSCESS CATHETER INJECTION 07/30/2023 N/A ABSCESS CATHETER INJECTION 08/12/2023 N/A Medical History Medical History Date Comments Colon polyps Depression Anxiety Colon cancer (CMS/HCC) (HCC) Dis marlene transverse Colon CA s/p Left hemicolectomy 12/27/2017; No chemo and no radiation Breast cancer (HCC) 2018 left breast cancer TIA (transient ischemic attack) 2007 Asthma Anemia History of ileus 12/2017 Former smoker Quit 2015 At risk for sleep apnea Per asse ssment, STOP BANG=3. Pt reports her PCP wants to do a Sleep Study in the near future. Hypertension Hypercholesteremia COPD (chronic obstructive pu lmonary disease) (HCC) SOB (shortness of breath) Vascular disease Breast cancer (HCC) 2018 Colon cancer (CMS/HCC) (HCC) 2018 Personal history of other me dical treatment Hepatic steatosis Memory loss Some short-term memory loss Lower extremity edema DVT (deep vein thrombosis) in 05/2017 with multiple Pulmonary Emboli SOB (shortness of breath) 06/07 ch emotherapy Leg swelling Right lower extr emity--known DVT Mucositis Personal history of other me dical treatment History of BRCA2 mutation Type 2 diabetes mellitus (HCC) Obesity DVT (deep venous thrombosis) (CMS/HCC) (HCC) 05/2018 RLE DVT BRCA2 positive History of radiation therapy History of chemotherapy VIOLETTE (obstructive sleep apnea) 11/12/2019 do esn't use cpap BRCA2 gene mutation positive in female 9 Chronic kidney disease Thyroid disease Family History Medical History Relation Name Comments Alcohol abuse Brother 1 Ed [place] No Known Problems Brother 2 No Known Problems Brother 3 Obesity Daughter Mic Estrada Cancer Father [place] Depression Father [place] Diabetes Father [place] Prostate cancer Father [place] Breast cancer Father's Sister Heart attack Maternal Grandfather Ronny Valera Liver cancer Maternal Grandmother Alzheimer's disease Mother L[place]ay [place] Depression Mother L[place]ay [place] Diabetes Mother [place] Heart attack Mother [place] Stent Mother [place] Stroke Mother [place] Vision loss Paternal Grandfather [place] Heart attack Paternal Grandmother Emma [place] Cancer Sister 1 Chayo Casillas Pancreatic cancer Sister 1 Chayolouise Casillas pancreatic cancer Sister 1 Chayo Casillas No Known Problems Sister 2 No Known Problems Sister 3 Anesthesia problems Neg Hx Relation Name Status Comments Brother 1 [place] Alive Brother 2 Alive Brother 3 Alive Daughter Mic Estrada Father T[place]or [place] (Age 65) Father's Sister Maternal Grandfather Ronny Valera Maternal Grandmother Mother L[place] Alive Paternal Grandfather [place] Paternal Grandmother Emma [place] Sister 1 Chayo Casillas (Age 42) Sister 2 Alive Sister 3 Alive Social History Tobacco Use Types Packs/Day Years [...] on file 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 Gender Identity Not on file Sexual Orientation Not on file Obstetrics History Para Term AB IAB SAB Ectopic Multiple Livin g Live Births 4 3 2 1 1 2 Date Outcome GA Total Labor Labor/2nd/3rd Weight Sex Type Anes PTL [place] A1 A5 Name Clin AB Term Term Comments Post menopause Last Filed Vital Signs Vital Sign Reading Time Taken Comments Blood Pressure 121/68 02/05/2024 3:15 PM CDT Pulse 75 02/05/2024 3:15 PM CDT Temperature 36.6 ??C (97.9 ??F) 02/05/2024 3:15 PM CD T Respiratory Rate 16 02/05/2024 3:15 PM CDT Oxygen Saturation 100% 02/05/2024 3:15 PM CDT Inhaled Oxygen Concentration - - Weight 97.5 kg (215 lb) 02/05/2024 3:15 PM CDT Height 175.3 cm (5' 9 ) 06/27/2023 12:52 PM 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 Body Mass Index 31.75 06/27/2023 12:52 PM ASSISTANT 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 Plan of Treatment Health Maintenance Due Date Last Done Comments Colon Cancer Screening-Colonoscopy 1955 Depression Screening 1957 Hepatitis C Screening 1957 Osteoporosis Screening-Bone Density Scan 1957 DTaP/Tdap/Td Vaccine (1 - Tdap) 1968 Hepatitis B Screening 07/28/1975 Lung Cancer Screening 07/28/2007 Zoster Vaccine (1 of 2) 07/28/2007 Pneumococcal vaccine 65+ (2 of 2 - PPSV23 or PCV20) 04/02/2019 02/05/2019 Well Visit 65+ 2022 Breast Cancer Screening-Mammogram 09/28/2022 09/28/2021, 10/06/2020, 08/17/2019, Additional history exists Influenza Vaccine (#1) 2024 9, 02/20/2018, 05/06/2017 Fall Risk Assessment 08/11/2024 08/12/2023 Cervical Cancer Screening Discontinued 09/18/2021 Medical Devices Implanted Type Area Information Technology Project Manager Device Identifier Shelf Expiration Date Model / Serial / Lot [employer] [id number] Powerport Clearvue Airguard 8fr 1 Lumen Lightweight Intermediate Latex Free - [id number] Implanted:Qty: 1 on 01/14/2018 by Aft, Kianna Machado MD PhD at [facility] Other - see comments Right: Chest Wall [employer] [id number] 05/05/2019 [id number] / / [id number] Description:Power port-a-cat h inserted into the right chest wall. Procedures Procedure Name Priority Date/Time Associated Diagnosis Comments MRI CHEST W WO CONTRAST Schedule STARR, Read STARR (Appt Today, Awaiting Results) 02/19/2024 3:39 PM CDT Malignant 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, estrogen receptor negative (HCC) Chest wall pain MRI BRACHIAL PLEXUS W WO CONTRAST RIGHT Schedule STARR, Read STARR (Appt Today, Awaiting Results) 02/19/2024 3:39 PM CDT Malignant 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, estrogen receptor negative (HCC) Chest wall pain EGFR Routine 02/05/2024 3:00 PM CDT Malignant 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, 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) DIFFERENTIAL AUTO Routine 02/05/2024 3:0 0 PM CDT Malignant 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, 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) CBC WITH AUTO DIFFERENTIAL Routine 02/05/2024 3:00 PM CDT Malignant 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, 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) CA 125 Routine 02/05/2024 3:00 PM CDT Malignant 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, 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) CEA Routine 02/05/2024 3:00 PM CDT Malignant 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, 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) COMPREHENSIVE METABOLIC PANEL Routine 02/05/2024 3:00 PM CDT Malignant 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, 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) SCREENING MAMMOGRAM BILATERAL W MATHEW Schedule STARR, Read STARR (Appt Today, Awaiting Results) 09/28/2021 2:39 PM CDT Malignant 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, 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) (HCC) PAP AND HIGH RISK HPV, REFLEX TO GENOTYPING Routine 09/18/2021 3:49 PM CDT BRCA2 gene mutation positive in female from Last 3 Months or Most Recently Relevant to Health Maintenance Results * MRI Brachial Plexus W WO Contrast Right (02/19/2024 3:39 PM CDT) Anatomical Region Laterality Modality Head and Neck N/A Magnetic Resonan ce 02/19/2024 4:56 PM CDT Impressions 02/19/2024 5:05 PM CDT Normal examination of the brachial plexus. Dictated by: Kj Matson MD The radiology attending physician has personally reviewed this study, and had reviewed and/or edited this written report and agrees with it. Electronically signed by: Josselyn Mancera M.D. Narrative 02/19/2024 5:05 PM CDT EXAMINATION: Magnetic resonance imaging (MRI) of the chest without and with contrast HISTORY: Breast cancer status post bilateral mastectomy with right chest wall pain radiating down the right arm. TECHNIQUE: Multiplanar multi-weighted MRI of the right chest was performed without and with intravenous contrast using the brachial plexus protocol. Contrast information: 18 mL Gadoterate Meglumine COMPARISON: Chest CT 07/11/2023; cervical spine MRI 08/30/2018 FINDINGS: Partially imaged changes of bilateral mastectomy. ??The nerve roots, trunks, divisions, and cords of the right brachial plexus appear normal. The nerve bundles appear normal. There is normal muscle bulk and normal signal in the visualized portions of the right rotator cuff. The chest wall muscles appear normal. Normal flow voids are seen in the right subclavian artery. Visualized portions of the cervical spine and cord appear normal. There is no abnormal contrast enhancement. Procedure Note Josselyn Mancera MD - 02/19/2024 EXAMINATION: Magnetic resonance imaging (MRI) of the chest without and with contrast HISTORY: Breast cancer status post bilateral mastectomy with right chest wall pain radiating down the right arm. TECHNIQUE: Multiplanar multi-weighted MRI of the right chest was performed without and with intravenous contrast using the brachial plexus protocol. Contrast information: 18 mL Gadoterate Meglumine COMPARISON: Chest CT 07/11/2023; cervical spine MRI 08/30/2018 FINDINGS: Partially imaged changes of bilateral mastectomy. The nerve roots, trunks, divisions, and cords of the right brachial plexus appear normal. The nerve bundles appear normal. There is normal muscle bulk and normal signal in the visualized portions of the right rotator cuff. The chest wall muscles appear normal. Normal flow voids are seen in the right subclavian artery. Visualized portions of the cervical spine and cord appear normal. There is no abnormal contrast enhancement. IMPRESSION: Normal examination of the brachial plexus. Dictated by: Kj Matson MD The radiology attending physician has personally reviewed this study, and had reviewed and/or edited this written report and agrees with it. Electronically signed by: Jossleyn aMncera M.D. Abbi Ventura MD [facility] MRI PROCEDURES Final Result * MRI Chest W WO Contrast (02/19/2024 3:39 PM CDT) Anatomical Region Laterality Modality Body N/A Magnetic Resonan ce 02/20/2024 10:4 2 AM CDT Impressions 02/22/2024 6:55 AM CDT 1. ??Interval decrease in size of the now thin left chest wall seroma. 2. ??No MR correlate to explain reported right upper chest wall pain. 3. ??No evidence of metastatic disease in the chest. Dictated by: Nicholas Bains MD The radiology attending physician has personally reviewed this study, and had reviewed and/or edited this written report and agrees with it. Electronically signed by: Dora Sandoval M.D. Narrative 02/22/2024 6:55 AM CDT EXAMINATION: MAGNETIC RESONANCE IMAGING OF THE CHEST WITH AND WITHOUT CONTRAST HISTORY: Breast cancer status post bilateral mastectomy with right chest wall pain radiating down the right arm and left chest wall seroma. TECHNIQUE: Magnetic resonance imaging of the chest was performed prior to and following the uneventful administration of intravenous Gadolinium contrast. Protocol: Chest body wall mass Contrast: gadoterate 18 mL COMPARISON: CT 07/11/2023 FINDINGS: Cutaneous skin marker is placed over the anterior upper right chest without anatomic correlate. ??The heart size is normal. ??There is no pericardial effusion. ??Main pulmonary artery is normal in caliber. Left-sided aortic arch is normal in course and caliber. ??There is no thoracic lymphadenopathy. ??There is normal signal intensity throughout the lungs. ??No pleural effusion. ??The changes of bilateral mastectomy with a thin fluid collection overlying the left chest wall compatible with a seroma measuring approximately 9.2 x 1.1 x 4.6 cm (curved AP x TRA x CC). ??There is minimal peripheral enhancement of this collection which otherwise simple fluid and signal intensity with facilitated diffusion but no diffusion restriction. ??See dedicated brachial plexus MR for findings. ?? Images of the upper abdomen demonstrate cholelithiasis. ??The marrow signal is normal. Procedure Note Dora Sandoval MD - 02/22/2024 EXAMINATION: MAGNETIC RESONANCE IMAGING OF THE CHEST WITH AND WITHOUT CONTRAST HISTORY: Breast cancer status post bilateral mastectomy with right chest wall pain radiating down the right arm and left chest wall seroma. TECHNIQUE: Magnetic resonance imaging of the chest was performed prior to and following the uneventful administration of intravenous Gadolinium contrast. Protocol: Chest body wall mass Contrast: gadoterate 18 mL COMPARISON: CT 07/11/2023 FINDINGS: Cutaneous skin marker is placed over the anterior upper right chest without anatomic correlate. The heart size is normal. There is no pericardial effusion. Main pulmonary artery is normal in caliber. Left-sided aortic arch is normal in course and caliber. There is no thoracic lymphadenopathy. There is normal signal intensity throughout the lungs. No pleural effusion. The changes of bilateral mastectomy with a thin fluid collection overlying the left chest wall compatible with a seroma measuring approximately 9.2 x 1.1 x 4.6 cm (curved AP x TRA x CC). There is minimal peripheral enhancement of this collection which otherwise simple fluid and signal intensity with facilitated diffusion but no diffusion restriction. See dedicated brachial plexus MR for findings. Images of the upper abdomen demonstrate cholelithiasis. The marrow signal is normal. IMPRESSION: 1. Interval decrease in size of the now thin left chest wall seroma. 2. No MR correlate to explain reported right upper chest wall pain. 3. No evidence of metastatic disease in the chest. Dictated by: Nicholas Bains MD The radiology attending physician has personally reviewed this study, and had reviewed and/or edited this written report and agrees with it. Electronically signed by: Dora Sandoval M.D. Abbi Ventura MD IMG MRI PROCEDURES Final Result * (ABNORMAL) eGFR (02/05/2024 3:00 PM CDT) eGFR 33(L) >=60 mL/min/1. 73 m2 Comment: Interpretive Data Reference Interval Normal ?>/= 90 mL/min/1.73m2 Mildly decreased* ? 60 - 89 mL/min/1.73m2 Mildly to moderately decreased ?45 - 59 mL/min/1.73m2 Moderately to severely decreased ??30 - 44 mL/min/1.73m2 Severely decreased ?15 - 29 mL/min/1.73m2 Kidney Failure ?< 15 ??mL/min/1.73m2 *Relative to young adult level Estimated glomerular filtration rate is determined by the 2020 CKD-EPI equation recommended by the National Kidney [employer] (A Unifying Approach to GFR Estimation: Recommendations of the NKF-ASK Task Force on Reassessing the Inclusion of Race in Diagnosing Kidney Disease, JASN 202). The CKD-EPI equation should not be used for patients with unstable renal function and has not been validated in children and those over 70. Current interpretive data was last reviewed 2021. Blood 02/05/2024 3:00 PM CDT 02/05/2024 3:00 PM CDT us Abbi Ventura MD LAB BLOOD ORDERABLES Final Resul t [facility] Department [place] [address] * Differential, auto (02/05/2024 3:00 PM CDT) Neutrophil abs 6.2 1.5 - 6.5 K/cumm Comment:Testing performed by : [facility], [address] [place] [id number] Imm gran abs 0.0 0.0 - 0.1 K/cumm [facility] Lymphocyte abs 1.8 0.8 - 3.3 K/cumm [facility] Monocyte abs 0.5 0.2 - 0.8 K/cumm [facility] Eosinophil abs 0.4 0.0 - 0.5 K/cumm [facility] Basophil abs 0.1 0.0 - 0.1 K/cumm [facility] Neutrophil pct 69.5 % [facility] Comment: Interpretive Data Percent cell count reference ranges are not reported, since discordance with absolute values may lead to misinterpretation of CBC data. Current Interpretive Data was last revised on 2017. Imm gran pct 0.3 % [facility] Comment: Interpretive Data Percent cell count reference ranges are not reported, since discordance with absolute values may lead to misinterpretation of CBC data. Current Interpretive Data was last revised on 2017. Lymphocyte pct 19.7 % [facility] Comment: Interpretive Data Percent cell count reference ranges are not reported, since discordance with absolute values may lead to misinterpretation of CBC data. Current Interpretive Data was last revised on 2017. Monocyte pct 5.5 % [facility] Comment: Interpretive Data Percent cell count reference ranges are not reported, since discordance with absolute values may lead to misinterpretation of CBC data. Current Interpretive Data was last revised on 2017. Eosinophil pct 4.1 % [facility] Comment: Interpretive Data Percent cell count reference ranges are not reported, since discordance with absolute values may lead to misinterpretation of CBC data. Current Interpretive Data was last revised on 2017. Basophil pct 0.9 % [facility] Comment: Interpretive Data Percent cell count reference ranges are not reported, since discordance with absolute values may lead to misinterpretation of CBC data. Current Interpretive Data was last revised on 2017. Blood 02/05/2024 3:00 PM CDT 02/05/2024 3:00 PM CDT us Abbi Ventura MD LAB BLOOD ORDERABLES Final Resul t [facility] Department [place] [address] * (ABNORMAL) CBC with auto differential (02/05/2024 3:00 PM CDT) Pathologist [facility] WBC 9.0 3.8 - 9.9 K/cumm Comment:Testing performed by : [address] [address] Hgb 11.1(L) 11.9 - 15.5 g/dL [facility] Comment:Testing performed by : [address] [address] Hct 35.0(L) 35.6 - 45.5 % [facility] Comment:Testing performed by : [address] [address] Plt 179 150 - 400 K/cumm [facility] Comment:Testing performed by : [address] [address] MPV 9.6 9.1 - 12.3 fL [facility] RBC 3.85(L) 3.90 - 5.20 M/cumm [facility] MCV 90.9 81.3 - 96.4 fL [facility] MCH 28.8 27.1 - 33.3 pg [facility] MCHC 31.7(L) 32.3 - 35.7 g/dL [facility] RDW CV 13.6 11.1 - 14.9 % [facility] RDW SD 45.3 35.7 - 48.1 fL [facility] NRBC abs 0.00 0.00 - 0.01 K/cumm [facility] Blood 02/05/2024 3:00 PM CDT 02/05/2024 3:00 PM CDT us Abbi Ventura MD LAB BLOOD ORDERABLES Final Resul t Performing Organization Address [facility] Co de Phone Number [facility] Department [place] [address] * CA 125 (02/05/2024 3:00 PM CDT) CA 125 ag 8.0 0.0 - 38.1 units/mL Comment: Interpretive Data The Bo CA 125 assay procedure was used. Results from different manufacturers or methods may not be comparable. Serial testing should be performed using the same method. Blood 02/05/2024 3:00 PM CDT 02/05/2024 7:10 PM CDT Abbi Ventura MD LAB BLOOD ORDERABLES Final Resul t Performing Organization Address [facility] de Phone Number [facility] Department [place] [address] * CEA (02/05/2024 3:00 PM CDT) CEA 1.3 <=5.0 ng/mL Comment: Interpretive Data: Reference Range: Non-Smokers: 0.0 ? 5.0 ng/mL Smokers: 0.0 ? 6.5 ng/mL The Bo CEA assay procedure was used. Results from different manufacturers or methods may not be comparable. Serial testing should be performed using the same method. Current interpretive data was last revised 2021. Blood 02/05/2024 3:00 PM CDT 02/05/2024 7:10 PM CDT Abbi Ventura MD LAB BLOOD ORDERABLES Final Resul t Performing Organization Address City/[facility] Co de Phone Number [facility] Department [place] [address] * (ABNORMAL) Comprehensive metabolic panel (02/05/2024 3:00 PM CDT) Sodium 139 135 - 145 mmol/L Comment:Testing performed by : [facility], [address] [facility] [address] Potassium, pl 4.0 3.3 - 4.9 mmol/L [facility] Chloride 109 97 - 110 mmol/L [facility] CO2 24 22 - 32 mmol/L [facility] Anion gap 6 2 - 15 mmol/L [facility] BUN 24 6 - 25 mg/dL [facility] Creatinine 1.69(H) 0.60 - 1.10 mg/dL [facility] Glucose 105 70 - 199 mg/dL [facility] Comment: Interpretive Data Fasting glucose >/= 126 mg/dl is diagnostic for diabetes. ?? Fasting is defined as no caloric intake for at least 8 hours. Fasting glucose between 100 mg/dl to 125 mg/dl is diagnostic of prediabetes. In a patient with classic symptoms of hyperglycemia or hyperglycemic crisis, a random glucose >/= 200 mg/dl is diagnostic for diabetes. In the absence of unequivocal hyperglycemia, results should be confirmed by repeat testing. The classification and Diagnosis of Diabetes Diabetes Care 202; 46: S19-S40. Current interpretive data was last revised 2022. Calcium 9.1 8.5 - 10.3 mg/dL [facility] Bilirubin, total 0.4 0.1 - 1.2 mg/dL [facility] Protein, pl 7.0 6.5 - 8.5 g/dL [facility] Albumin 4.5 3.5 - 5.0 g/dL [facility] Alk phos 72 40 - 130 Units/L [facility] ALT 11 7 - 45 Units/L [facility] AST 18 10 - 45 Units/L [facility] Blood 02/05/2024 3:00 PM CDT 02/05/2024 3:00 PM CDT Abbi Ventura MD LAB BLOOD ORDERABLES Final Resul t [facility] Department [place] [address] * Screening Mammogram Bilateral W Mathew (09/28/2021 2:39 PM CDT) Anatomical Region Laterality Modality Breast Bilateral Mammography Narrative 09/29/2021 9:59 AM CDT Mammogram Technique: Bilateral Digital Breast Tomosynthesis, Bilateral C-view 2D Screening mammogram. ??Views obtained: ??bilateral craniocaudal and bilateral mediolateral oblique. ??Computer Aided Detection was performed. Mammogram Findings: The present examination has been compared to prior imaging studies performed at [facility] on 11/05/2017, 08/11/2018 and 10/06/2020. There are scattered areas of fibroglandular density. There are post breast conservation therapy changes in the left breast. There is no suspicious abnormality in the right breast. Impression: Post breast conservation therapy changes in the left breast are benign. Annual screening mammography is recommended. OVERALL FINAL ASSESSMENT: BI-RADS CATEGORY 2: ??Benign. Procedure Note Yoana Ash MD - 09/29/2021 Mammogram Technique: Bilateral Digital Breast Tomosynthesis, Bilateral C-view 2D Screening mammogram. Views obtained: bilateral craniocaudal and bilateral mediolateral oblique. Computer Aided Detection was performed. Mammogram Findings: The present examination has been compared to prior imaging studies performed at [facility] on 11/05/2017, 08/11/2018 and 10/06/2020. There are scattered areas of fibroglandular density. There are post breast conservation therapy changes in the left breast. There is no suspicious abnormality in the right breast. Impression: Post breast conservation therapy changes in the left breast are benign. Annual screening mammography is recommended. OVERALL FINAL ASSESSMENT: BI-RADS CATEGORY 2: Benign. Abbi Ventura MD IMG MAMMO PROCEDURES Final Resul t * Pap and High Risk HPV, reflex to Genotyping (09/18/2021 3:49 PM CDT) Thin prep (Pap test) 09/18/2021 3:49 PM CDT 09/18/2021 5:36 PM CDT Narrative PATHOLOGY [facility] - 09/22/2021 5:14 PM CDT EPIC results best viewed via link to PDF [facility] Galilea Mu[facility]iz [facility] [place] [address] Note to Patients: This report may contain a detailed description of human tissue sent by a health care provider to the laboratory for pathologic evaluation. The content of this report is essential for diagnosis and may provide important critical findings. This information may be unfamiliar to patients to review without a medical professional present. It is advised that the patient review this report in the presence of a health care provider who can answer questions and explain the details. CYTOPATHOLOGY REPORT FINAL Patient Name: ??ALEAH GERBER Gender: ??F : ??1955 (Age: 66) Address: ??[address] [place] [address] ??[id number] [facility] #: ??[id number] Service: ??[employer] Location: ?? Patient Type: ??[facility] SPECIMEN Taken: ??09/18/2021 Received: ??09/18/2021 Accessioned: ??09/19/2021 Reported: ??09/22/2021 Physician(s): ??Montse Thompson M.D. ?? FINAL INTERPRETATION SOURCE OF SPECIMEN: ? Liquid based Thin Prep pap with HPV STATEMENT OF ADEQUACY: ?- Satisfactory for evaluation ?- No endocervical/transformation zone sample present in a post menopausal patient GENERAL CATEGORY: ?- Negative for squamous intraepithelial lesion or malignancy ?? Comments HPV Result: ??NEGATIVE for high risk types of Human Papilloma Virus (HPV) RNA This probe detects the presence of HPV types: 16, 18, 31, 33, 35, 39, 45, 51, 52, 56, 58, 59, 66 and 68. ??This HPV test was performed at [facility] in [place], [place] utilizing the Gen-Probe Aptima assay. This specimen has been rescreened in accordance with this laboratory's Customer Support Technician Program. jxh/09/22/2021 17:14 IMTIAZ Gray(ASCP) Report Electronically Reviewed and Signed Out By PATTIE Montana(ASCP), [facility] 09/22/2021 17:14:55 Cervicovaginal Cytology (Pap Test) Disclaimer: The Pap test is a screening test used to detect cervical cancer and its precursors; it is not a diagnostic procedure. False negative and false positive results do occur. Pap test results should be interpreted in the context of pertinent clinical information and biopsy results as indicated. Gross Description A. ??Liquid based Thin Prep pap with HPV: ?Vaginal - Screening ThinPrep ?? Clinical Diagnosis and History Last Menstrual Period: >10 years The patient is a 66 year old female with history of AGC Pap. The HPV test was performed by [facility], [address] [place] [address]. Report Images and scanned documents, if included only viewable in PDF version The performance characteristics of some immunohistochemical stains, in-situ hybridization and fluorescence in-situ hybridization tests and immunophenotyping by flow cytometry cited in this report (if any) were determined by the Surgical Pathology Department at [facility] as part of an ongoing vendor quality supervisor program and in compliance with federally mandated regulations drawn from the Clinical Laboratory Improvement Act of 1988 (CLIA '88). ??Some of these tests rely on the use of analyte specific reagents and are subject to specific labeling requirements by the US Food and Drug Administration. ??Such diagnostic tests may only be performed in a facility that is certified by the Department of Health and Human Services as a high complexity laboratory under CLIA '88. ??The FDA has determined that such clearance or approval is not necessary. ??This test is used for clinical purposes. ??It should not be regarded as investigational or for research. ??Nevertheless, federal rules concerning the medical use of analyte specific reagents require that the following disclaimer be attached to the report: This test was developed and its performance characteristics determined by the Surgical Pathology Department of [facility]. ??It has not been cleared or approved by the U. S. Food and Drug Administration. Adela Chan NP LAB CYTOLOGY ORDERABLES Bethanie wesley Result PATHOLOGY [facility] 3rd Floor [place], [place] [phone] from Last 3 Months or Most Recently Relevant to Health Maintenance Insurance MEDICARE [facility] INSURANCE CHOICE PRF [place] MED[place] [facility] INSURANCE Advance Directives For more information, please contact: [phone] * Full Code (Latest Code Status on File) Date Activated Date Inactivated Comments 08/12/2023 12:33 PM 08/13/2023 4:59 AM * Full Code Date Activated Date Inactivated Comments 07/30/2023 7:17 AM 07/31/2023 5:06 AM * Full Code Date Activated Date Inactivated Comments 07/17/2023 1:28 PM 07/18/2023 4:59 AM * Full Code Date Activated Date Inactivated Comments 05/22/2022 1:09 PM 05/23/2022 4:44 PM * Full Code Date Activated Date Inactivated Comments 02/13/2019 1:25 PM 02/14/2019 4:03 PM Care Teams Forming Process Line Worker Relationship Specialty Start Date End Date Dat Benito DO [address] [place] [address] PCP - General Internal Medicine 09/28/21 Aft, Kianna Machado MD PhD [address] [place] [address] Surgeon Surgical Oncology 11/22/17 Santiago [place] MD [address] [place] [address] Manager Training Gastroenterology 11/22/17 Abbi Ventura MD [address] [facility] [address] [place] [address] Medical Oncologist/Drafter Civil (Cad) Medical Oncology 12/03/18 Montse Thompson MD [address] [facility] [address] [place] [address] Consulting Physician Gynecologic Oncology 12/03/18 Lela Hardy MD PhD [address] [facility] [address] [place] [address] Radiation Oncologist Radiation Oncology 12/23/18 Trena Obando MD [address] [place] [address] Consulting Physician Neurology 09/18/21
--- OUTSIDE RECORDS SUMMARY | 2024-04-24 13:34 | XMS_ITS | Referral Summary ---
Author Organization [facility] Address [address] [place] [address] Care Team Providers Care Facing End Trimmer Name Role Phone Aft, Kianna Machado MD PhD Unavailable [phone] Santiago Gilbert MD Unavailable [phone] Abbi Ventura MD Unavailable Montse Thompson MD Unavailable [phone] Lela Hardy MD PhD Unavailable [phone] Trena Obando MD Unavailable [phone] aDt Benito DO Primary Care Provider [phone] Encounters Date Type Department Care Team Description 02/25/[address] [facility] Oncology [address] [place] [phone] Uriel Corral 02/19/2024 1:43 PM CDT - 02/19/2024 11:59 PM CDT Hospital Encounter [facility] [address] [place], [place] [id number] Malignant 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, estrogen receptor negative (HCC); Chest wall pain Discharge Disposition: Discharge to home or self care 02/05/2024 2:45 PM CDT Lab [facility] [address] [place] [id number] Malignant 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, estrogen receptor negative (HCC); 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) (Primary Dx); Malignant 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, estrogen receptor negative (HCC); Chest wall pain from Last 3 Months Allergies Active Allergy Reactions Criticality Noted Date [...] Cancer Staging:Pathologic:Stage IIA(pT2, pN0(sn), cM0, G3, ER-, TX-, HER2-) - Signed by Roger Dorsey MD on 12/23/2018 Clinical:Stage IIB(cT2, cN0, cM0, G3, ER-, TX-, HER2-) - Signed by Lela Hardy MD PhD on 01/01/2019 Asthma-COPD overlap syndrome (CMS/HCC) Asthma Resolved Problems Problem Noted Date Diagnosed Date Resolved Date 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 Immunizations Name Administration Dates Next Due Influenza, Quadrivalent, Gisela l Culture-based MDCK, Preservative Free, Antibiotic Free, Intramuscular 02/05/2019,02/20/2018 Influenza, Split 05/06/2017 Pneumococcal Conjugate PCV 13 02/05/2019 Social History Tobacco Use Types Packs/Day Years [...] on file 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 WINDER 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 Gender Identity Not on file Sexual Orientation Not on file Last Filed Vital Signs Vital Sign Reading [...] cm (5' 9 ) 06/27/2023 12:52 PM WINDER HELPER Body Mass Index 31.75 06/27/2023 12:52 PM WINDER HELPER Plan of Treatment Not on file Medical Devices Implanted Type Area Control Center Operator Device Identifier Shelf Expiration Date Model / Serial / Lot [employer] [id number] Powerport Clearvue Airguard 8fr 1 Lumen Lightweight Intermediate Latex Free - [id number] Implanted:Qty: 1 on 01/14/2018 by Aft, Kianna Machado MD PhD at [facility] Other - see comments Right: Chest Wall [employer] [id number] 05/05/2019 [id number] / / [id number] Description:Power port-a-cat h inserted into the right [...] it. Electronically signed by: Josselyn Mancera M.D. Abbi Ventura MD IM MRI PROCEDURES Final Result * MRI Chest [...] by: Dora Sandoval M.D. Abbi Ventura MD [facility] [place] PROCEDURES Final Result * (ABNORMAL) eGFR [...] of Race in Diagnosing Kidney Disease, JASN 2020). The CKD-EPI equation should not be used for patients with unstable renal function and has not been validated in children and those over 70. Current interpretive data was last reviewed 2021. Blood 02/05/2024 3:00 PM CDT 02/05/2024 3:00 PM CDT us Abbi Ventura MD LAB BLOOD ORDERABLES Final Resul t [facility] Department [place] [address] * Differential, auto (02/05/2024 3:00 PM CDT) Neutrophil abs 6.2 1.5 - 6.5 K/cumm Comment:Testing performed by : [facility], [address] [place] [id number] Imm gran abs 0.0 0.0 - 0.1 K/cumm [facility] Lymphocyte abs 1.8 0.8 - 3.3 K/cumm [facility] Monocyte abs 0.5 0.2 - 0.8 K/cumm [facility] Eosinophil abs 0.4 0.0 - 0.5 K/cumm [facility] Basophil abs 0.1 0.0 - 0.1 K/cumm [facility] Neutrophil pct 69.5 % [facility] Comment: Interpretive Data Percent cell count reference ranges are not reported, since discordance with absolute values may lead to misinterpretation of CBC data. Current Interpretive Data was last revised on 2017. Imm gran pct 0.3 % [facility] Comment: Interpretive Data Percent cell count reference ranges are not reported, since discordance with absolute values may lead to misinterpretation of CBC data. Current Interpretive Data was last revised on 2017. Lymphocyte pct 19.7 % [facility] Comment: Interpretive Data Percent cell count reference ranges are not reported, since discordance with absolute values may lead to misinterpretation of CBC data. Current Interpretive Data was last revised on 2017. Monocyte pct 5.5 % [facility] Comment: Interpretive Data Percent cell count reference ranges are not reported, since discordance with absolute values may lead to misinterpretation of CBC data. Current Interpretive Data was last revised on 2017. Eosinophil pct 4.1 % [facility] Comment: Interpretive Data Percent cell count reference ranges are not reported, since discordance with absolute values may lead to misinterpretation of CBC data. Current Interpretive Data was last revised on 2017. Basophil pct 0.9 % [facility] Comment: Interpretive Data Percent cell count reference ranges are not reported, since discordance with absolute values may lead to misinterpretation of CBC data. Current Interpretive Data was last revised on 2017. Blood 02/05/2024 3:00 PM CDT 02/05/2024 3:00 PM CDT us Abbi Ventura MD LAB BLOOD ORDERABLES Final Resul t [facility] Department [place] [address] * (ABNORMAL) CBC with auto differential (02/05/2024 3:00 PM CDT) [facility] WBC 9.0 3.8 - 9.9 K/cumm Comment:Testing performed by : [facility], [address] [place] [address] Hgb 11.1(L) 11.9 - 15.5 g/dL [facility] Comment:Testing performed by : [address] [address] Hct 35.0(L) 35.6 - 45.5 % [facility] Comment:Testing performed by : [address] [address] Plt 179 150 - 400 K/cumm [facility] Comment:Testing performed by : [address] [address] MPV 9.6 9.1 - 12.3 fL [facility] RBC 3.85(L) 3.90 - 5.20 M/cumm [facility] MCV 90.9 81.3 - 96.4 fL [facility] MCH 28.8 27.1 - 33.3 pg [facility] MCHC 31.7(L) 32.3 - 35.7 g/dL [facility] RDW CV 13.6 11.1 - 14.9 % [facility] RDW SD 45.3 35.7 - 48.1 fL [facility] NRBC abs 0.00 0.00 - 0.01 K/cumm [facility] Blood 02/05/2024 3:00 PM CDT 02/05/2024 3:00 PM CDT us Abbi Ventura MD LAB BLOOD ORDERABLES Final Resul t [facility] [place] [address] * CA 125 (02/05/2024 3:00 PM CDT) [facility] CA 125 ag 8.0 0.0 - 38.1 units/mL Comment: Interpretive Data The Bo CA 125 assay procedure was used. Results from different manufacturers or methods may not be comparable. Serial testing should be performed using the same method. Blood 02/05/2024 3:00 PM CDT 02/05/2024 7:10 PM CDT Abbi Ventura MD LAB BLOOD ORDERABLES Final Resul t Performing Organization Address [facility] [place] [address] * CEA (02/05/2024 3:00 PM CDT) [facility] CEA 1.3 <=5.0 ng/mL Comment: Interpretive Data: [...] ORDERABLES Final Resul t Performing Organization Address [facility] de Phone Number [facility] [place] [address] * (ABNORMAL) Comprehensive metabolic panel (02/05/2024 3:00 PM CDT) [facility] Sodium 139 135 - 145 mmol/L Comment:Testing performed by : [facility], [address] [place] [address] Potassium, pl 4.0 3.3 - 4.9 mmol/L [facility] Chloride 109 97 - 110 mmol/L [facility] CO2 24 22 - 32 mmol/L [facility] Anion gap 6 2 - 15 mmol/L [facility] BUN 24 6 - 25 mg/dL [facility] Creatinine 1.69(H) 0.60 - 1.10 mg/dL [facility] Glucose 105 70 - 199 mg/dL [facility] Comment: Interpretive Data Fasting glucose >/= 126 [...] classification and Diagnosis of Diabetes Diabetes Care 2021; 46: S19-S40. Current interpretive data was last revised 2022. Calcium 9.1 8.5 - 10.3 mg/dL [facility] Bilirubin, total 0.4 0.1 - 1.2 mg/dL [facility] Protein, pl 7.0 6.5 - 8.5 g/dL [facility] Albumin 4.5 3.5 - 5.0 g/dL [facility] Alk phos 72 40 - 130 Units/L [facility] ALT 11 7 - 45 Units/L [facility] AST 18 10 - 45 Units/L [facility] Blood 02/05/2024 3:00 PM CDT 02/05/2024 3:00 PM CDT us Abbi Ventura MD LAB BLOOD ORDERABLES Final Resul t Performing Organization Address City/State/[facility] Co de Phone Number [facility] Department [place] [address] * Screening Mammogram Bilateral W Mathew (09/28/2021 2:39 PM CDT) Anatomical Region Laterality Modality Breast Bilateral Mammography Narrative 09/29/2021 9:59 AM CDT Mammogram Technique: Bilateral Digital Breast Tomosynthesis, Bilateral C-view 2D Screening mammogram. ??Views obtained: ??bilateral craniocaudal and bilateral mediolateral oblique. ??Computer Aided Detection was performed. Mammogram Findings: The present examination has been compared to prior imaging studies performed at [facility] on 11/05/2017, 08/11/2018 and 10/06/2020. There [...] to prior imaging studies performed at [facility] on 11/05/2017, 08/11/2018 and 10/06/2020. There [...] CDT 09/18/2021 5:36 PM CDT Narrative PATHOLOGY [facility] - 09/22/2021 5:14 PM CDT EPIC results best viewed via link to PDF [facility] Galilea Muñiz Laboratory [place] [address] Note to Patients: This report may contain [...] Gender: ??F : ??1955 (Age: 66) Address: ??[address] [place], [place] ??[address] Hospital #: ??[id number] Service: ??RAISER HELPER Location: ?? Patient Type: ??[facility] SPECIMEN Taken: ??09/18/2021 Received: ??09/18/2021 Accessioned: ??09/19/2021 [...] 70. ??This HPV test was performed at [facility] in [place], [place] utilizing the Gen-Probe Aptima assay. This specimen has been rescreened in accordance with this laboratory's Service Bar Cashier Program. j/09/22/2021 17:14 IMTIAZ Gray(ASCP) Report Electronically Reviewed and Signed Out By PATTIE Montana(ASCP), [facility] 09/22/2021 17:14:55 Cervicovaginal Cytology (Pap Test) [...] Pap. The HPV test was performed by [facility], [address] [place] [address]. Report Images and scanned documents, if included only viewable in PDF version The performance characteristics of some immunohistochemical stains, in-situ hybridization and fluorescence in-situ hybridization tests and immunophenotyping by flow cytometry cited in this report (if any) were determined by the Surgical Pathology Department at [facility] as part of an ongoing supplier quality engineering manager program and in compliance with federally mandated [...] determined by the Surgical Pathology Department of [facility]. ??It has not been cleared or approved by the U. S. Food and Drug Administration. Adela Chan NP LAB CYTOLOGY ORDERABLES Bethanie wesley Result PATHOLOGY [facility] 3rd Floor [place], [place] [phone] from Last 3 Months or Most Recently Relevant to Health Maintenance Insurance MEDICARE [facility] INSURANCE CHOICE [facility] PPO [place] MEDICARE [facility] INSURANCE Advance Directives For more information, please contact: [phone] * Full Code (Latest Code Status on [...] 1:25 PM 02/14/2019 4:03 PM Care Teams Facing End Trimmer Relationship Specialty Start Date End Date Dat Benito DO [address] [place] [address] PCP - General Internal Medicine 09/28/21 Aft, Kianna Machado MD PhD [address] [place] [address] Surgeon Surgical Oncology 11/22/17 Santiago Gilbert MD [address] [place] [address] Client Manager Gastroenterology 11/22/17 Abbi Ventura MD [address] [place] [address] [address] [place] [address] Medical Oncologist/Depilatory Painter Medical Oncology 12/03/18 Montse Thompson MD [address] [place] [address] Consulting Physician Gynecologic Oncology 12/03/18 Lela Hardy MD PhD [address] [facility] [place] [address] Radiation Oncologist Radiation Oncology 12/23/18 Trena Obando MD [address] [place] [address] Consulting Physician Neurology 09/18/21
--- OUTSIDE RECORDS SUMMARY | 2024-04-24 13:34 | XMS_ITS ---
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 Role Phone Aft, Kianna Machado MD PhD Unavailable [phone] Santiago Gilbert MD Unavailable [phone] Abbi Ventura MD Unavailable Montse Thompson MD Unavailable [phone] Lela Hardy MD PhD Unavailable [phone] Trena Obando MD Unavailable [phone] Dat Benito DO Primary Care Provider [phone] Active Problems Problem Noted Date Diagnosed Date Medication side effect 06/28/2023 Family history of pancreatic cancer 10/29/2022 Breast cancer of upper-inner quadrant of right female breast 06/13/2022 Paresthesia of left arm 12/09/2020 Neuropathy 10/25/2020 Amaurosis fugax 08/19/2020 Essential hypertension 08/19/2020 Hyperlipidemia 08/19/2020 VIOELTTE (obstructive sleep apnea) 11/12/2019 Encounter for follow-up [...] Cancer Staging:Pathologic:Stage IIA(pT2, pN0(sn), cM0, G3, ER-, IL-, HER2-) - Signed by Roger Dorsey MD on 12/23/2018 Clinical:Stage IIB(cT2, cN0, cM0, G3, ER-, IL-, HER2-) - Signed by Lela Hardy MD PhD on 01/01/2019 Asthma-COPD overlap syndrome (CMS/HCC) Asthma Current Oncology Plans No current plan information found. Other Current Plans Hydration Therapy Plan* Plan Start Date:03/23/2021 Plan Provider:Abbi Ventura MD Linked Problems Dehydration Treatment Medications No medications scheduled. Past Plans Blood Products Plan Name Start Date Discontinue Date Treatment Medications Discontinue Reason Plan Provider ADULT BLOOD ADMINISTRATION FOR OUTPATIENT WITH PARAMETERS FOR 1 OR 2 UNITS 07/29/2018 04/01/2019 No medications scheduled. Therapy Complete Abbi Ventura MD Oncology Chemotherapy Treatment Plan Name Start Date Discontinue Date Treatment Medications Discontinue Reason Plan Provider Cycles Dose-Dense AC: DOXOrubicin (ADRIAMYCIN) / Cyclophosphamide 14 Day Cycles - Breast 06/25/19 19 08/25/2018 cycloPHOSphamide (CYTOXAN)cycloPHOS phamide (CYTOXAN) IVPB (vial 20 mg/mL) ([id number])DOXOrubicin (ADRIAMYCIN)DOXOru bicin (ADRIAMYCIN) 2 mg/mL Therapy Complete Abbi Ventura MD 4 of 4 cycles started mFOLFOX6: (Fluorouracil / Leucovorin / Oxaliplatin) 14 Day Cycles - GI 02/07/20 18 05/28/2018 fluorouracil (ADRUCIL)fluoroura cil (ADRUCIL) infusion - for home infusion (ADRUCIL)leucovori n IVPB in 250 mLoxaliplatin (ELOXATIN) IVPB Therapy Complete Abbi Ventura MD 8 of 8 cycles started Oncology Supportive Care Plan Name Start Date Discontinue Date Treatment Medications Discontinue Reason Plan Provider ELECTROLYTE REPLACEMENT & ELECTROLYTE REPLACEMENT 03/14/2018 10/22/2018 No medications scheduled. Therapy Complete Abbi Ventura MD Radiation Treatments * Plan Last Treated On Elapsed Days Fractions Treated Prescribed Fraction Dose Prescribed Total Dose RESCAN_BST 02/04/2019 28 5 200 cGy 1,000 cGy RESCAN TANGS 01/30/2019 23 13 266 cGy 3,458 c Gy L BREAST 01/09/2019 2 3 266 cGy 4,256 cGy Reference Point Last Treated On Elapsed Days Session Dose Total Dose BST DPV 02/04/2019 28 200 cGy 1,000 cGy REVELES DPV 01/30/2019 23 266 cGy 4,256 cGy Lifetime Dose Tracking * Chemical Lifetime Dose Automatic Entry Manual Entr y doxorubicin 209.738 mg/m2 (474.8 mg) 209.738 mg/m2 (474.8 mg) 0 mg/m2 (0 mg) Fluoro Time 2.983 minutes 2.983 minutes 0 minutes cyclophosphamide 2,686.945 mg/m2 (6,104 mg) 2,686.945 mg/m2 (6,104 mg) 0 mg/m2 (0 mg) doxorubicin isotoxic equivalent (Please manually verify calculation) 209.738 mg/m2 (474.8 mg) 209.738 mg/m2 (474.8 mg) 0 mg/m2 (0 mg) Air kerma at the reference point (Ka,r) 7 mGy 7 mGy 0 mGy DLP 16,721 mGycm 16,721 mGycm 0 mGycm Treatment Summaries 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 [place] [id number] This Survivorship Care Plan is a cancer treatment summary and follow-up plan and is provided to youto keep with your health care records and to share with your primary care provider or any of your doctors and nurses. This summary is a brief record of major aspects of your cancer treatment not a detailed or comprehensive record of your care. You should review this with your cancer provider. Treatment Summary and Survivorship Care Plan for Colorectal Cancer General Information Patient name Aleah Gerber (home) Date of 1955 Health Care Providers (Including Names, Institutions) Provider Name: Contact Information: Primary Care Physician Ravi Smith MD [phone] Surgeon Dmitry Sanderson MD [phone] Medical Oncologist Abbi Ventura MD [phone] Department Clinician Santiago Gilbert MD [phone] Other Providers Treatment Summary Cancer Diagnosis Information Diagnosis Malignant neoplasm of descending colon (CMS/HCC) Diagnosis date 10/22/2017 Staging information Stage IIC Adenocarcinoma Predisposing Conditions None Family History of Colon, Rectal or Anal Cancer Colon, Rectal, or Anal Cancer- related family historyis not on file. Genetic Testing Yes, Results: BRCA2 positive BRIP1 and NBN with variant of unknown significance Myriad My risk showed no mutation in MLH 1 or PMS2 suggesting that the patient does not have Grullon syndrome. Pre-op Colonoscopy Yes Completion to cecum Yes Other Lesions on Pre-Op Colonoscopy Low risk polyps Treatment Completed Surgery Surgery date 12-27-2017 Surgical procedure / location / findings Laparoscopic left hemicolectomy Radiation No Permanent [place] No Systemic Therapy (chemotherapy, hormonal therapy, other) mFOLFOX6: (Fluorouracil / Leucovorin / Oxaliplatin) 14 Day Cycles - GI Treatment goal Curative Status Inactive Start Date 02/06/2018 End Date 05/21/2018 Provider Abbi Ventura MD Chemotherapy leucovorin 925 mg in dextrose 5% 250 mL IVPB, 400 mg/m2 = 925 mg, intravenous, Once, 8of 8 cycles Dose modification: 300 mg/m2 (original dose 400 mg/m2, Cycle 6) Administration: 925 mg (02/06/2018), 925 mg (02/20/2018), 925 mg (03/06/2018), 925 mg (03/25/2018), 925 mg (04/09/2018), 700 mg (04/23/2018), 700 mg (05/07/2018), 700 mg (05/21/2018) oxaliplatin (ELOXATIN) 195 mg in dextrose 5% 250 mL IVPB, 85 mg/m2 = 195 mg, intravenous, Once, 5 of 5 cycles Dose modification: 63.75 mg/m2 (original dose 85 mg/m2, Cycle 3), 42 mg/m2 (original dose 42 mg/m2,Cycle 5) Administration: 195 mg (02/06/2018), 195 mg (02/20/2018), 147.5 mg (03/06/2018), 97.5 mg (04/09/2018),97.5 mg (04/23/2018) fluorouracil (ADRUCIL) IV syringe 925 mg 18.5 mL, 400 mg/m2 = 925 mg, intravenous, Once, 8 of 8 cycles Dose modification: 300 mg/m2 (original dose 400 mg/m2, Cycle 6) Administration: 925 mg (02/06/2018), 925 mg (03/06/2018), 925 mg (03/25/2018), 925 mg (02/24/2018), 925 mg (04/09/2018), 700 mg (04/23/2018), 700 mg (05/07/2018), 700 mg (05/21/2018) fluorouracil (ADRUCIL) 5,550 mg in cadd cassette 111 mL infusion - for home infusion, 2,400 mg/m2 =5,550 mg, intravenous, over 46 hours, 8 of 8 cycles Dose modification: 1,800 mg/m2 (original dose 2,400 mg/m2, Cycle 6) Administration: 5,550 mg (02/06/2018), 5,550 mg (03/06/2018), 5,550 mg (03/25/2018), 5,550 mg (02/24/2018), 5,550 mg (04/09/2018), 4,200 mg (04/23/2018), 4,200 mg (05/07/2018), 4,200 mg (05/21/2018) Research Studies SATISFY-SOS Status On study Start Date 10/20/18 Persistent symptoms or side effects that have continued after finishing treatment: Treatment Ongoing: No Follow-up Care Plan Your follow-up care plan is design to inform you and primary care providers regarding the recommended and required follow-up, cancer screening and routine health maintenance that is needed to maintain optimal health. Schedule of Clinical Visits Coordinating Provider When/How often Medical Oncologist: Abbi Ventura MD (Patients may alternate with Medical oncology and Surgeon if both are [facility] Physicians) History and Physical every 3 months for 2 years then, every 6 months for following 3 years Ravi ConklinHortencia Smith After 5 years of treatment completion - yearly exam Cancer Surveillance or other Recommended Tests Coordinating Provider Test How Often Colon Surgeon: Dmitry Sanderson MD Colonoscopy 1 year after surgery Medical Oncologist: Abbi Ventura MD CEA blood test Every 3 months for 2 years then every 6 months for following 3 years. Medical Oncologist: Abbi Ventura MD Chest/Abdominal/pelvic CT (high risk patients) Yearly up to 5 years Possible late- and long-term effects that someone with this type of cancer and treatment may experience: Bowel problems (urgency, incontinence, change in consistency) Numbness/tingling Fatigue Memory/concentration difficulty Patients receiving radiation therapy for rectal cancer may also experience: Pelvic insufficiency fractures Urinary problems - urinary incontinence Sexual dysfunction - erectile dysfunction, ejaculatory problems, menopause, vaginal dryness, painful intercourse Please continue to see your primary care provider for all general health care recommended for a patient your age, including cancer screening tests, except for colon cancer. Any symptoms should be brought to the attention of your provider: Anything that represents a brand new symptom; Anything that represents a persistent symptom; Anything you are worried about that might be related to the cancer coming back. Cancer survivors may experience issues with the areas listed below. If you have any concerns in these or other areas, please speak with your doctors or nurses to find out how you can get help with them. Anxiety and depression Emotional and mental health Fatigue Fertility Financial advice or assistance Insurance Memory or concentration loss Parenting Physical functioning School/work Sexual functioning Stopping smoking Weight changes Other A number of lifestyle/behaviors can affect your ongoing health, including the risk for the cancer coming back or developing another cancer. Discuss these recommendations with your doctor or nurse: Colon and Rectal cancer require lifelong surveillance. It is essential that you follow your doctors??? recommendations for follow up appointments and tests. Eat a healthy diet: focus on lean meats and proteins, more fruits, vegetables and whole grains and low in sugars and fats. Limit red meat and avoid processed meat. Maintain a healthy weight; avoid being overweight. Aim for a normal body mass index (BMI) of 18.5-24.9. Help learning to eat healthier, call the carpentry instructor at: [facility] . Have an active lifestyle, strive for 30 minutes of moderate exercise 5 times a week and strength orresistance training at least twice a week. Use broad-spectrum (UVA+UVB) sunscreen with SPF 30 or greater, is water resistant, limit time spentin the sun (10 am-4pm), wear hat, wear UV protective clothing, wear sunglasses. Never use a tanningbed. Skin that was irradiated may be more sensitive over your lifetime. Do not smoke or chew tobacco; participate in a smoking cessation program. Limit alcohol intake, 1 drink per day for a woman and 2 drinks per day for a man. Family members may be at risk for colorectal cancer, please advise your family members to discuss with their primary care physician their risk and screening needs. Family members may be at risk for colorectal cancer, please advise your family members to discuss with their primary care physician their risk and screening needs. Discuss your need for daily aspirin and other healthy life style measures with your primary care physician. Resources you may be interested in: [facility] http://www.[facility]/ [facility] Information [facility] 1st floor of [facility] [phone]. Computer access, educational material, counseling services (FREE) [employer] Ost[employer] Association: the place for ostomy resources, advocacy, and support. www.ostomy.org RUSTY Castillo, SEMAJ, Nurse practitioner and ostomy nurse at [facility] can be reached at [phone] Online Resources: www.cancer.net; http://www.cdc.gov/cancer/survivorship; http://www.cancercare.org/tagged/post-treatment_survivorship; http://www.cancer.gov/about-cancer/coping/survivorship Springboard Beyond Cancer: https://survivorship.cancer.gov/ an online tool for cancer survivors andcaregivers created by the English Cancer Society and the National Cancer [place]. 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 [address] [address] This Survivorship Care Plan is a cancer treatment summary and follow-up plan and is provided to youto keep with your health care records and to share with your primary care provider or any of your doctors and nurses. This summary is a brief record of major aspects of your cancer treatment not a detailed or comprehensive record of your care. You should review this with your cancer provider. 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, 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) Diagnosis date 11/12/2017 Staging information Stage IIA Estrogen receptor: Negative Progesterone receptor: Negative HER-2: Negative Treatment Completed Surgery Surgery date 01-14-2018 Surgical procedure / location / findings Biopsy Breast Needle Localization partial mastectomy (L), Biopsy [place] Lymph Node With Lymphoscintigraphy (L), Insertion Port A Cath (R) with ultrasound and fluroscopy Surgery date 11-11-2018 Surgical procedure / location / findings Re-excision of left breast biopsy cavity Radiation Radiation Treatments Active No active radiation treatments to show. Historical Plans L BREAST Most recent treatment: Dose planned: 266 cGy (fraction 3 on 01/09/2019) Total: Dose planned: 4,256 cGy Elapsed Course Treatment Days: 2 RESCAN TANGS Most recent treatment: Dose planned: 266 cGy (fraction 13 on 01/30/2019) Total: Dose planned: 3,458 cGy Elapsed Course Treatment Days: 23 RESCAN_BST Most recent treatment: Dose planned: 200 cGy (fraction 5 on 02/04/2019) Total: Dose planned: 1,000 cGy Elapsed Course Treatment Days: 28 Reference Points BST DPV Most recent treatment: Dose given: 200 cGy (on 02/04/2019) Total: Dose given: 1,000 cGy Elapsed Course Treatment Days: 28 REVELES DPV Most recent treatment: Dose given: 266 cGy (on 01/30/2019) Total: Dose given: 4,256 cGy Elapsed Course Treatment Days: 23 Systemic Therapy (chemotherapy, hormonal therapy, other) Dose-Dense AC: DOXOrubicin (ADRIAMYCIN) / Cyclophosphamide 14 Day Cycles - Breast Treatment goal [No plan goal] Status Inactive Start Date 06/25/2018 End Date 08/12/2018 Provider Abbi Ventura MD Chemotherapy DOXOrubicin (ADRIAMYCIN) 2 mg/mL IV syringe 135.6 mg 67.8 mL, 60 mg/m2 = 135.6 mg, intravenous, Once, 4 of 4 cycles Dose modification: 45 mg/m2 (75 % of original dose 60 mg/m2, Cycle 3, Reason: Other (see comments),Comment: Grade 2 fatigue and Grade 2 mucositis) Administration: 135.6 mg (06/25/2018), 135.6 mg (07/09/2018), 101.8 mg (07/23/2018), 101.8 mg (08/12/2018) cyclophosphamide (CYTOXAN) 1,356 mg in sodium chloride 0.9% 250 mL IVPB, 600 mg/m2 = 1,356 mg, intravenous, Once, 4 of 4 cycles Dose modification: 450 mg/m2 (75 % of original dose 600 mg/m2, Cycle 3, Reason: Other (see comments), Comment: Grade 2 fatigue and Grade 2 mucositis) Administration: 1,356 mg (06/25/2018), 1,356 mg (07/09/2018), 1,018 mg (07/23/2018), 1,018 mg (08/12/2018) pegfilgrastim (NEULASTA ON-BODY) injection 6 mg, 6 mg, subcutaneous, Once, 4 of 4 cycles Administration: 6 mg (06/25/2018), 6 mg (07/09/2018), 6 mg (07/23/2018), 6 mg (08/12/2018) Lifetime Dose Tracking Lifetime Dose Tracking doxorubicin: 209.738 mg/m2 (474.8 mg) cyclophosphamide: 2,097.38 mg/m2 (4,748 mg) doxorubicin isotoxic equivalent: 209.738 mg/m2 (474.8 mg) Research Studies SATISFY-SOS Status On study Start Date 10/20/18 Persistent symptoms or side effects that have continued after finishing treatment: Family History Cancer Cancer-related family history includes Liver cancer (age of onset: 80) in hermaternal grandmother; Pancreatic cancer (age of onset: 40) in her sister; Prostate cancer (age of onset: 60) in her father. Genetic Testing Testing Complete BRCA2 positive BRIP1 and NBN with variant of unknown significance Myriad My risk showed no mutation in MLH 1 or PMS2 suggesting that the patient does not have Grullon syndrome. Tell your provider if there is a history of cancer in your family, if another member of your familywas diagnosed with cancer since your last visit. The following risk factors may indicate that breast cancer could run in the family: Buddhism heritage History of ovarian cancer in the patient or any 1st or 2nd degree relative Any 1st degree relative with breast cancer before the age of 50 Two or more 1st or 2nd degree relative diagnosed with breast cancer at any age Patient or relative diagnosed with bilateral breast cancer History of breast cancer in a male relative Treatment Ongoing Follow-up Care Plan Your follow-up care plan is design to inform you and primary care providers regarding the recommended and required follow-up, cancer screening and routine health maintenance that is needed to maintain optimal health. Coordinating Provider When/How often Abbi Ventura MD Every 3 months for year 1 to 3 Abbi Ventura MD Every 6 months for year 4 to 5 Kianna Bunch MD PhD Yearly Ravi Smith After 5 years, annual follow up Cancer Surveillance or other Recommended Tests Coordinating Provider Test How Often Abbi Ventura MD - Year 1-5, Ravi Smith MD - After year 5 Mammogram for remaining breast(s) Yearly OPEN HEARTH HELPER: Pap/pelvic exam (woman only) As indicated by provider CT/PET and tumor markers. Not recommended in the absence of signs or symptoms of cancer recurrence Possible late- and long-term effects that someone with this type of cancer and treatment may experience: It is important to remember that these symptoms can be due to other causes like diabetes or with normal aging. If these or any other new symptoms occur bring these to attention of your health care provider. These symptoms should be brought to the attention of your provider: Anything that represents a brand new symptom; Anything that represents a persistent symptom; Anything you are worried about that might be related to the cancer coming back. Please continue to see your primary care provider for all general health care recommended for a patient your age such as routine immunizations, and routine non-breast cancer screening like colonoscopy or bone density exams. Consult with your health care provider about prevention and screening for bone loss using bone density tests. Cancer survivors may experience issues with the areas listed below. If you have any concerns in these or other areas, please speak with your doctors or nurses to find out how you can get help with them. Anxiety and depression Emotional and mental health Fatigue Fertility Financial advice or assistance Insurance Memory or concentration loss Parenting Physical functioning School/work Sexual functioning Stopping smoking Weight changes Other A number of lifestyle/behaviors can affect your ongoing health, including the risk for the cancer coming back or developing another cancer. Discuss these recommendations with your doctor or nurse: Eat a healthy diet: focus on lean meats and proteins, more fruits, vegetables and whole grains and low in sugars and fats. Limit red meat and avoid processed meat. Maintain a healthy weight; avoid being overweight. Aim for a normal body mass index (BMI) of 18.5-24.9. Help learning to eat healthier, call the carpentry instructor at: [facility] . Have an active lifestyle, strive for 30 minutes of moderate exercise 5 times a week and strength orresistance training at least twice a week. Use broad-spectrum (UVA+UVB) sunscreen with SPF 30 or greater, is water resistant, limit time spentin the sun (10 am-4 pm), wear hat, wear UV protective clothing, wear sunglasses. Never use a tanning bed. Skin that was irradiated may be more sensitive over your lifetime. Do not smoke or chew tobacco; participate in a smoking cessation program. Limit alcohol intake, 1 drink per day for a woman and 2 drinks per day for a man. Resources you may be interested in: [facility] A National Cancer [place] [facility] http://www.[facility]/ [facility] 1st floor of [facility] Medicine [phone]. Computer access, educational material, counseling services (FREE) Cancer Resources: www.cancer.net English Disabilities Act: The U.S. Department of Justice provides information about the Americans with Disabilities Act (ADA). Toll free number http://www.ada.gov/ Occupational Therapy at [facility]. Improve memory and thinking following chemotherapy. Improve your performance at home, work and in the community. or Toll free www.ot.[facility]/patients Managing your weight after a cancer diagnosis: http://www.cancer.net/sites/cancer.net/files/weight_after_cancer_diagnosis.pdf National Coalition for Cancer Survivorship: http://www.canceradvocacy.org/ [employer] Cancer Society Cancer Survivors Network: http://csn.cancer.org/ Springboard Beyond Cancer: https://survivorship.cancer.gov/ an online tool for cancer survivors andcaregivers created by the English Cancer Society and the National Cancer [place]. 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
--- OUTSIDE RECORDS SUMMARY | 2024-04-24 13:35 | XMS_ITS | Encounter Summary ---
Author Organization [facility] Healthcare Address [address] [place] [address] Care Team Providers Care Internet Developer Name Role Phone Aft, Kianna Machado MD PhD Unavailable [phone] Santiago Gilbert MD Unavailable [phone] Abbi Ventura MD Unavailable Montse Thompson MD Unavailable [phone] Lela Hardy MD PhD Unavailable [phone] Trena Obando MD Unavailable [phone] Dat Beniot DO Primary Care Provider [phone] Encounter Details Date Type Department Care Team (Late st Contact Info) Description 07/26/2023 Telephone [facility] Radiology [address] [place] [address] Leroy Pepper, RN Social History Tobacco Use Types Packs/Day Years [...] making you feel afraid or unsafe? Denies 07/17/2023 Comments No Sex and Gender Information Value Date Recorded Sex Assigned at Not on file 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 HISTOLOGIC AIDE Gender Identity Not on file Sexual Orientation Not on file documented as of this encounter Plan of Treatment Not on file documented as of this encounter Visit Diagnoses Not on filedocumented in this encounter Care Teams Internet Developer Relationship Specialty Start Date End Date Dat Benito DO [address] [place] [address] PCP - General Internal Medicine 09/28/21 Aft, Kianna Machado MD PhD [address] [place] [address] Surgeon Surgical Oncology 11/22/17 Santiago Gilbert MD [address] [place] [address] Marketing Mgr Gastroenterology 11/22/17 Abbi Ventura MD [address] [place] [address] [address] [place] [address] Medical Oncologist/Ditch Digger Medical Oncology 12/03/18 Montse Thompson MD [address] [place] [address] [address] [place] [address] Consulting Physician Gynecologic Oncology 12/03/18 Lela Hardy MD PhD [address] [place] [address] [address] [place] [address] Radiation Oncologist Radiation Oncology 12/23/18 Trena Obando MD [address] [place] [address] Consulting Physician Neurology 09/18/21 documented as of this encounter
--- OUTSIDE RECORDS SUMMARY | 2024-04-24 13:35 | XMS_ITS | Encounter Summary ---
Author Organization [facility] Healthcare Address [address] [place] [address] Care Team Providers Care Retail Custodial Associate Name Role Phone Aft, Kianna Machado MD PhD Unavailable [phone] Santiago Gilbert MD Unavailable [phone] Abbi Ventura MD Unavailable Montse Thompson MD Unavailable [phone] Lela Hardy MD PhD Unavailable [phone] Trena bOando MD Unavailable [phone] Dat Benito DO Primary Care Provider [phone] Encounter Details Date Type Department Care Team (Late st Contact Info) Description 07/04/2023 10:10 AM LOGGING TRUCK DRIVER Lab [address] [address] Malignant 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, estrogen receptor negative (HCC); 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 Never 10/25/2022 Q2: How many drinks containi ng alcohol do you have on a typical day when you are drinking? Patient does not drink 3 Q3: How often do you have si x or more drinks on one occasion? 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) DIFFERENTIAL AUTO STAT 07/04/2023 10: 10 AM LOGGING TRUCK DRIVER Malignant 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, 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) CBC WITH AUTO DIFFERENTIAL STAT 07/04/2023 10:10 AM LOGGING TRUCK DRIVER Malignant 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, 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) CA 125 STAT 07/04/2023 10:10 AM LOGGING TRUCK DRIVER Malignant 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, 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 73 m2 [facility] Comment: Interpretive Data Reference Interval Normal ?>/= [...] interpretive data was last reviewed 2021. Blood 07/04/2023 10:1 0 AM LOGGING TRUCK DRIVER 07/04/2023 10:16 AM LOGGING TRUCK DRIVER us Abbi Ventura MD LAB BLOOD ORDERABLES Final Resul t [facility] [place] [address] * Differential, auto (07/04/2023 10:10 AM LOGGING TRUCK DRIVER) Pathologist [facility] Neutrophil abs 5.3 1.5 - 6.5 K/cumm [facility] Comment:Testing performed by : [facility], [address] [place] [id number] Imm gran abs 0.0 0.0 - 0.1 K/cumm [facility] Lymphocyte abs 1.5 0.8 - 3.3 K/cumm [facility] Monocyte abs 0.5 0.2 - 0.8 K/cumm [facility] Eosinophil abs 0.3 0.0 - 0.5 K/cumm [facility] Basophil abs 0.1 0.0 - 0.1 K/cumm [facility] Neutrophil pct 69.5 % [facility] Comment: Interpretive Data Percent cell count reference ranges are not reported, since discordance with absolute values may lead to misinterpretation of CBC data. Current Interpretive Data was last revised on 2017. Imm gran pct 0.3 % [facility] Comment: Interpretive Data Percent cell count reference ranges are not reported, since discordance with absolute values may lead to misinterpretation of CBC data. Current Interpretive Data was last revised on 2017. Lymphocyte pct 19.0 % [facility] Comment: Interpretive Data Percent cell count reference ranges are not reported, since discordance with absolute values may lead to misinterpretation of CBC data. Current Interpretive Data was last revised on 2017. Monocyte pct 5.9 % [facility] Comment: Interpretive Data Percent cell count reference ranges are not reported, since discordance with absolute values may lead to misinterpretation of CBC data. Current Interpretive Data was last revised on 2017. Eosinophil pct 4.4 % [facility] Comment: Interpretive Data Percent cell count reference ranges are not reported, since discordance with absolute values may lead to misinterpretation of CBC data. Current Interpretive Data was last revised on 2017. Basophil pct 0.9 % [facility] Comment: Interpretive Data Percent cell count reference ranges are not reported, since discordance with absolute values may lead to misinterpretation of CBC data. Current Interpretive Data was last revised on 2017. Blood 07/04/2023 10:1 0 AM LOGGING TRUCK DRIVER 07/04/2023 10:16 AM LOGGING TRUCK DRIVER us Abbi Ventura MD LAB BLOOD ORDERABLES Final Resul t [facility] Department [place] [address] * CEA (07/04/2023 10:10 AM LOGGING TRUCK DRIVER) Pathologist [facility] CEA 1.5 <=5.0 ng/mL [facility] Comment: Interpretive Data: Reference Range: Non-Smokers: 0.0 ? 5.0 ng/mL Smokers: 0.0 ? 6.5 ng/mL The Bo CEA assay procedure was used. Results from different manufacturers or methods may not be comparable. Serial testing should be performed using the same method. Current interpretive data was last revised 2021. Blood 07/04/2023 10:1 0 AM LOGGING TRUCK DRIVER 07/04/2023 12:29 PM LOGGING TRUCK DRIVER us Abbi Ventura MD LAB BLOOD ORDERABLES Final Resul t [facility] Department [place] [address] * (ABNORMAL) CBC with auto differential (07/04/2023 10:10 AM LOGGING TRUCK DRIVER) [facility] WBC 7.7 3.8 - 9.9 K/cumm [facility] Comment:Testing performed by : [address] [address] Hgb 11.7(L) 11.9 - 15.5 g/dL [facility] Comment:Testing performed by : [address] [address] Hct 36.4 35.6 - 45.5 % [facility] Comment:Testing performed by : [address] [address] Plt 171 150 - 400 K/cumm [facility] Comment:Testing performed by : [address] [address] MPV 9.1 9.1 - 12.3 fL [facility] RBC 4.02 3.90 - 5.20 M/cumm [facility] MCV 90.5 81.3 - 96.4 fL [facility] MCH 29.1 27.1 - 33.3 pg [facility] MCHC 32.1(L) 32.3 - 35.7 g/dL [facility] RDW CV 13.4 11.1 - 14.9 % [facility] RDW SD 44.4 35.7 - 48.1 fL [facility] NRBC abs 0.00 0.00 - 0.01 K/cumm [facility] Blood 07/04/2023 10:1 0 AM LOGGING TRUCK DRIVER 07/04/2023 10:16 AM LOGGING TRUCK DRIVER us Abbi Ventura MD LAB BLOOD ORDERABLES Final Resul t [facility] Department [place] [address] * (ABNORMAL) Comprehensive metabolic panel (07/04/2023 10:10 AM LOGGING TRUCK DRIVER) Sodium 137 135 - 145 mmol/L [facility] Comment:Testing performed by : [facility], [address] [place] [address] Potassium, pl 4.3 3.3 - 4.9 mmol/L [facility] Chloride 106 97 - 110 mmol/L [facility] CO2 25 22 - 32 mmol/L [facility] Anion gap 6 2 - 15 mmol/L [facility] BUN 27(H) 6 - 25 mg/dL [facility] Creatinine 1.51(H) 0.60 - 1.10 mg/dL [facility] Glucose 160 70 - 199 mg/dL [facility] Comment: Interpretive Data Fasting glucose >/= [...] interpretive data was last revised 2022. Calcium 9.0 8.5 - 10.3 mg/dL [facility] Bilirubin, total 0.3 0.1 - 1.2 mg/dL [facility] Protein, pl 7.2 6.5 - 8.5 g/dL [facility] Albumin 4.1 3.5 - 5.0 g/dL [facility] Alk phos 98 40 - 130 Units/L [facility] ALT 8 7 - 45 Units/L [facility] AST 17 10 - 45 Units/L [facility] Blood 07/04/2023 10:1 0 AM LOGGING TRUCK DRIVER 07/04/2023 10:16 AM LOGGING TRUCK DRIVER Abbi Ventura MD LAB BLOOD ORDERABLES Final Resul t Performing Organization Address City/[facility] Co de Phone Number [facility] Department [place] [address] * CA 125 (07/04/2023 10:10 AM LOGGING TRUCK DRIVER) CA 125 ag 7.0 0.0 - 38.1 units/mL [facility] Comment: Interpretive Data The Bo CA 125 assay procedure was used. Results from different manufacturers or methods may not be comparable. Serial testing should be performed using the same method. 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) Malignant neoplasm of descending colon documented in this encounter Care Teams Retail Custodial Associate Relationship Specialty Start Date End Date Dat Benito DO [address] [place] [address] PCP - General Internal Medicine 09/28/21 Aft, Kianna Machado MD PhD [address] [place] [address] Surgeon Surgical Oncology 11/22/17 Santiago Gilbert MD [address] [place] [address] Wrapper Rewinder Gastroenterology 11/22/17 Abbi Ventura MD [facility] [address] [place] [address] Medical Oncologist/Job Interviewer Medical Oncology 12/03/18 Montse Thompson MD [facility] [address] [place] [address] Consulting Physician Gynecologic Oncology 12/03/18 Lela Hardy MD PhD [facility] [address] [place] [address] Radiation Oncologist Radiation Oncology 12/23/18 Trena Obando MD [address] [place] [address] Consulting Physician Neurology 09/18/21 documented as of this encounter
--- OUTSIDE RECORDS SUMMARY | 2024-04-24 13:35 | XMS_ITS | Encounter Summary ---
Author Organization [facility] Healthcare Address [address] [place] [address] Care Team Providers Care Web Applications Architect Name Role Phone Aft, Kianna Machado MD PhD Unavailable [phone] Santiago Gilbert MD Unavailable [phone] Abbi Ventura MD Unavailable Montse Thompson MD Unavailable [phone] Lela Hardy MD PhD Unavailable [phone] Trena Obando MD Unavailable [phone] Dat Benito DO Primary Care Provider [phone] Reason for Referral * Diagnostic Imaging (Routine) - Closed Specialty Diagnoses / Procedures Referred By Contronny t Referred To Contact Radiology Diagnoses Malignant 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, estrogen receptor negative (HCC) Procedures IR Inject Abscess Catheter Shannon Hassan MD [address] [place] [address] Phone: tel: fax: [address] [phone] Referral ID Status Reason Start Date Expiration Date Visits Re quested Visits Authorized [id number] Closed 07/17/2023 08/15/2024 1 1 * Diagnostic Imaging (Routine) - Closed Specialty Diagnoses / Procedures Referred By Contac t Referred To Contact Radiology Diagnoses Malignant 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, estrogen receptor negative (HCC) Procedures IR Fluid Drain Soft Tissue Kianna Bunch MD PhD [address] [place] [address] Phone: tel: fax: [address] [phone] Referral ID Status Reason Start Date Expiration Date Visits Re quested Visits Authorized [id number] Closed 07/15/2023 08/13/2024 1 1 Reason for Visit * Diagnostic Imaging (Routine) - Closed Specialty Diagnoses / Procedures Referred By Vijaya t Referred To Contact Radiology Diagnoses Malignant 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, estrogen receptor negative (HCC) Procedures IR Fluid Drain Soft Tissue Kianna Bunch MD PhD [address] [place] [address] Phone: tel: fax: [address] [phone] Referral ID Status Reason Start Date Expiration Date Visits Re quested Visits Authorized [id number] Closed 07/15/2023 08/13/2024 1 1 Encounter Details Date Type Department Care Team (Latest Contact Info) Description 07/17/2023 12:40 PM CDT - 07/17/2023 11:59 PM CDT Hospital Encounter [facility] [address] [place] [address] Kianna Bunch MD PhD [address] [place] [address] Malignant 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 Patient does not drink Q3: How often do you have si x or more drinks on one occasion? Never 10/25/2022 Personal Safety Answer Date Recorded Have you ever been in or are you currently in a harmful physical or emotional relationship or is someone making you feel afraid or unsafe? 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 Gender Identity Not on file Sexual Orientation Not on file documented as of this encounter Last Filed Vital Signs Vital Sign Reading Time Taken Comments Blood Pressure 167/84 07/17/2023 3:35 PM CDT Pulse 65 07/17/2023 3:35 PM CDT Temperature 36.4 ??C (97.5 ??F) 07/17/2023 1:10 PM CD T Respiratory Rate 18 07/17/2023 3:35 PM CDT Oxygen Saturation 98% 07/17/2023 3:35 PM CDT Inhaled Oxygen Concentration - - Weight - - Height - - Body Mass Index - - documented in this encounter Discharge Instructions * Discharge Instructions* Shannon Hassan MD - 07/17/2023 3:19 PM CDT Interventional Radiology Outpatient Discharge Instructions/Note Diagnosis:Left chest wall seroma Procedure:Drain placement Limitations: [] You received medication that may affect your judgement. Stay with a responsible person today. Do not drive, operate machinery, make any legal or important decisions, or drink alcohol until tomorrow. No smoking unless another adult is present. Other Diet: You may resume your previous diet. Medication: [x] Usual medications; check with your regular doctor for any questions. Do not take any new pain medicine, sleeping pills or sedatives unless approved by your doctor. [] Prescriptions given for: Procedure Site Care: [] teaching sheet given [x] You may shower today. [x] Change the dressing daily and if it becomes wet or dirty. [x] It is okay to remove the dressing and gently wash the area while in the shower. You may also cover the site with plastic while showering if you wish to clean the site separately with a washcloth and warm soapy water. [x] Do not submerge the catheter under water (no bathtubs, pools, etc.) Drainage Tube Care: [] Flush tube with 5 mL Normal Saline [] Flush tube with 10 mL Normal Saline [] Flush tube once a day [] Flush tube twice a day [] Do not flush the tube [] Other: [] Record drainage output every day. [] Your tube is capped. Uncap the tube after or if severe pain or fever develops. (Please see teaching sheet). [] Call Interventional Radiology if there is leakage around the tube or the tube stops draining. To contact an Interventional Radiologist at [facility] call [phone] Saturday through Saturday from 7:30am-4:30pm. At all other times call [phone] and ask that the Interventional Radiologist be paged. To contact an Interventional Radiologist at [facility] call [phone] Saturday through Saturday from 7:30am-3:30pm. To contact an Interventional Radiologist RN at [facility] call [phone] Saturday through Saturday from 7:00 am-5:00 pm. To schedule an appointment with Interventional Radiology at [facility] call [phone] Saturday through Saturday from 7:30 am-4:00 pm. For after hours, follow the telephone recording prompts to reach the on-call Interventional Radiology physician. Special instructions: Please call Interventional Radiology for any procedure related questions or problems including: Extreme swelling or bruising at the site. Unusual drainage or bleeding from procedure site. Fever of 101.5 F for more than 24 hours. Severe procedure related pain. Follow up care: [] Return to Interventional Radiology on at Please come to: [] 3rd Floor [facility] [] 4th floor [facility] [] [facility] [] [facility] Please call [phone] if you need to schedule a follow up appointment. documented in this encounter Medications at Time of Discharge acetaminophen (TYLENOL) 500 mg tablet Take 1 tablet (500 mg total) by mouth as needed 05/23/2022 albuterol HFA (PROVENTIL HFA,VENTOLIN HFA,PROAIR HFA) 90 mcg/actuation inhaler Inhale 2 puffs every 6 (six) hours as needed for wheezing 1 each 5 07/09/2022 ALPRAZolam (XANAX) 0.25 mg tablet Take 1 tablet (0.25 mg total) by mouth 3 (three) times a day as needed for anxiety 11/07/2017 amLODIPine (NORVASC) 5 mg tabletIndications :hypertension Take 1 tablet (5 mg total) by mouth every morning 08/31/2021 diphenhydrAMINE (BENADRYL) 25 mg capsuleIndication s:allergies Take 1 tablet/capsule (25 mg total) by mouth as needed docusate sodium (COLACE) 100 mg capsuleIndication s:constipation Take 1 capsule (100 mg total) by mouth 2 (two) times a day 30 capsule 05/23/[address] (CYMBALTA) 60 mg capsuleIndication s:Neuropathic Pain Take 1 capsule (60 mg total) by mouth nightly 05/07/2020 fluticasone propion-salmetero L (ADVAIR DISKUS) 500-50 mcg/dose diskus inhaler Inhale 1 puff 2 (two) times a day Rinse mouth with water after use. Do not swallow. 60 each 02/19/2023 fluticasone propionate (FLONASE) 50 mcg/actuation nasal sprayIndications: Allergic Rhinitis Administer 1 spray into each nostril as needed 10/18/2021 levothyroxine (SYNTHROID) 75 mcg tabletIndications :hypothyroidism Take 1 tablet (75 mcg total) by mouth every morning 01/26/2022 nortriptyline (PAMELOR) 10 mg capsuleIndication s:Postherpetic Neuralgia,and sleep Take 1 capsule (10 mg total) by mouth nightly 09/13/2021 omeprazole (PriLOSEC) 20 mg capsuleIndication s:Stress Ulcer Prophylaxis Take 1 capsule (20 mg total) by mouth daily as needed 11/07/2021 ondansetron (ZOFRAN) 4 mg tablet Take 1 tablet (4 mg total) by mouth every 8 (eight) hours as needed for vomiting or nausea 02/22/2021 Ozempic 1 mg/dose (4 mg/3 mL) pen injector injection 08/24/2022 propranolol LA (INDERAL LA) 60 mg 24 hr capsuleIndication s:Essential Tremor Take 1 capsule (60 mg total) by mouth 2 (two) times a day 10/26/2019 rosuvastatin (CRESTOR) 10 mg tablet Take 1 tablet (10 mg total) by mouth daily topiramate (TOPAMAX) 25 mg tabletIndications :pain Take 1 tablet (25 mg total) by mouth 3 (three) times a day 09/12/2021 traMADoL (ULTRAM) 50 mg tablet Take 1 tablet (50 mg total) by mouth every 8 (eight) hours as needed for pain 01/11/2021 documented as of this encounter Discharge Disposition Disposition Code Departure Means Destination Discharge to home or self care documented in this encounter Nursing Notes * Gilberto Headley RN - 07/17/2023 3:01 PM CDT Subcutaneous stick for lidocaine documented in this encounter Miscellaneous Notes * Post-Procedure Note - Shannon Hassan MD - 07/17/2023 2:00 PM CDT Radiology Brief Post Procedure Note Attending: Dr. Goldman Cool Roofing Installer: Dr. Hassan Sedation/Anesthesia: Min Sedation Pre-Op/Pre-Procedure Diagnosis: Left chest seroma Post-Op/Post-Procedure Diagnosis: same Procedure Performed: Drain placement Procedure Findings: Successful left chest wall drain placement with drainage of serous fluid Complications: None Estimated Blood Loss: < 30 ml Specimens: None Condition: Stable Full report to follow. * Pre-Procedure Note - Shannon Hassan MD - 07/17/2023 2:00 PM CDT Images from the original note were not included. PRE-SEDATION ASSESSMENT/H&P Patient is a 67 y.o. female with chief complaint of LEFT chest wall fluid collection. Procedure: IR FLUID DRAIN SOFT TISSUE Indications/History: 67F with breast cancer s/p bilateral mastectomy, BRCA+, colon cancer and left chest wall fluid collection. PMH: Patient Active Problem List Diagnosis Date Noted Medication side effect 06/28/2023 Family history of pancreatic cancer 10/29/2022 Breast cancer of upper-inner quadrant of right female breast (HCC) 06/13/2022 Paresthesia of left arm 12/09/2020 Neuropathy (CMS/HCC) 10/25/2020 Amaurosis fugax 08/19/2020 Essential hypertension 08/19/2020 Hyperlipidemia 08/19/2020 Asthma VIOLETTE (obstructive sleep apnea) 11/12/2019 Encounter for follow-up examination after completed treatment for malignant neoplasm 03/18/2019 History of breast cancer 03/18/2019 Personal history of irradiation 03/18/2019 Asthma-COPD overlap syndrome (CMS/HCC) (HCC) Atypical glandular cells of undetermined significance (YRN) on cervical Pap smear 10/27/2018 BRCA2 gene mutation positive in female 10/20/2018 Hypomagnesemia 10/02/2018 Nipple discharge in female 08/17/2018 Drug-induced polyneuropathy (HCC) 08/15/2018 Gait difficulty 08/15/2018 Antineoplastic chemotherapy induced anemia 07/24/2018 Encounter for person encountering health services 06/12/2018 Acute pulmonary embolism (CMS/HCC) (HCC) 05/28/2018 Leg weakness, bilateral 05/21/2018 Diarrhea 03/21/2018 Dehydration 03/14/2018 Hypokalemia 03/14/2018 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) 11/29/2017 Malignant 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, estrogen receptor negative (HCC) 11/18/2017 History of Sedation/Anesthesia Complications: No History of Difficult Airway: No HISTORY PSH Past Surgical History: Procedure Laterality Date BLADDER SUSPENSION 2010 BREAST BIOPSY Left 11/12/2017 BREAST BIOPSY Right 2008 Benign BREAST BIOPSY Right 04/13/2022 BREAST BIOPSY Left 11/11/2018 re-excision BREAST BIOPSY 01/14/2018 BREAST LUMPECTOMY 2018 COLON SURGERY 2018 COLONOSCOPY 2018 HEMICOLECTOMY Left 12/27/2017 Laparoscopic left hemicolectomy HYSTERECTOMY 2018 or 2019 HYSTERECTOMY W/ BILATERAL SALPINGOOPHORECTOMY Bilateral 02/13/2019 INCONTINENCE SURGERY 2007 INGUINAL HERNIA REPAIR Right 1970 MASTECTOMY, PARTIAL Left 01/14/2018 Biopsy Breast Needle Localization partial mastectomy (L), Biopsy [place] Lymph Node With Lymphoscintigraphy (L), Insertion Port A Cath (R) with ultrasound and fluroscopy PORT REMOVAL 04/09/2019 PORTACATH PLACEMENT 01/2018 right upper chest PORTACATH PLACEMENT Right 2017 TUBAL LIGATION 1992 VAGINAL DELIVERY Social History: Social History Tobacco Use Smoking status: Former Current packs/day: 0.00 Average packs/day: 0.8 packs/day for 42.0 years (31.5 ttl pk-yrs) Types: Cigarettes Start date: 1972 Quit date: 2014 Years since quittin.2 Smokeless tobacco: Never Substance and Sexual Activity Drug use: Not Currently Sexual activity: Not Currently Partners: Male control/protection: Tubal Ligation Alcohol Use: Not At Risk (10/25/2022) AUDIT-C Frequency of Alcohol Consumption: Never Average Number of Drinks: Patient does not drink Frequency of Binge Drinking: Never Family History: Family History Problem Relation Age of Onset Prostate cancer Father 60 Cancer Father Depression Father Diabetes Father Pancreatic cancer Sister 40 Other (pancreatic cancer) Sister Cancer Sister Liver cancer Maternal Grandmother 80 Heart attack Mother 70 Stent Mother Alzheimer's disease Mother Depression Mother Diabetes Mother Stroke Mother Heart attack Maternal Grandfather Heart attack Paternal Grandmother Breast cancer Father's Sister Alcohol abuse Brother No Known Problems Sister No Known Problems Sister No Known Problems Brother No Known Problems Brother Vision loss Paternal Grandfather Obesity Daughter Anesthesia problems Neg Hx REVIEW OF SYSTEMS: Review of systems per HPI and otherwise all other systems are negative MEDICATIONS Current Meds: Current Outpatient Medications: acetaminophen (TYLENOL) 500 mg tablet, Take 1 tablet (500 mg total) by mouth as needed, Disp: , Rfl: albuterol HFA (PROVENTIL HFA,VENTOLIN HFA,PROAIR HFA) 90 mcg/actuation inhaler, Inhale 2 puffs every 6 (six) hours as needed for wheezing, Disp: 1 each, Rfl: 5 ALPRAZolam (XANAX) 0.25 mg tablet, Take 1 tablet (0.25 mg total) by mouth 3 (three) times a day as needed for anxiety, Disp: , Rfl: amLODIPine (NORVASC) 5 mg tablet, Take 1 tablet (5 mg total) by mouth every morning, Disp: , Rfl: diphenhydrAMINE (BENADRYL) 25 mg capsule, Take 1 tablet/capsule (25 mg total) by mouth as needed, Disp: , Rfl: docusate sodium (COLACE) 100 mg capsule, Take 1 capsule (100 mg total) by mouth 2 (two) times a day(Patient taking differently: Take 1 capsule (100 mg total) by mouth as needed), Disp: 30 capsule, Rfl: [address] (CYMBALTA) 60 mg capsule, Take 1 capsule (60 mg total) by mouth nightly, Disp: , Rfl: fluticasone propion-salmeteroL (ADVAIR DISKUS) 500-50 mcg/dose diskus inhaler, Inhale 1 puff 2 (two) times a day Rinse mouth with water after use. Do not swallow., Disp: 60 each, Rfl: 0 fluticasone propionate (FLONASE) 50 mcg/actuation nasal spray, Administer 1 spray into each nostrilas needed, Disp: , Rfl: levothyroxine (SYNTHROID) 75 mcg tablet, Take 1 tablet (75 mcg total) by mouth every morning, Disp:, Rfl: nortriptyline (PAMELOR) 10 mg capsule, Take 1 capsule (10 mg total) by mouth nightly, Disp: , Rfl: omeprazole (PriLOSEC) 20 mg capsule, Take 1 capsule (20 mg total) by mouth daily as needed, Disp: ,Rfl: ondansetron (ZOFRAN) 4 mg tablet, Take 1 tablet (4 mg total) by mouth every 8 (eight) hours as needed for vomiting or nausea, Disp: , Rfl: Ozempic 1 mg/dose (4 mg/3 mL) pen injector injection, , Disp: , Rfl: propranolol LA (INDERAL LA) 60 mg 24 hr capsule, Take 1 capsule (60 mg total) by mouth 2 (two) times a day, Disp: , Rfl: rosuvastatin (CRESTOR) 10 mg tablet, Take 1 tablet (10 mg total) by mouth daily, Disp: , Rfl: topiramate (TOPAMAX) 25 mg tablet, Take 1 tablet (25 mg total) by mouth 3 (three) times a day, Disp: , Rfl: traMADoL (ULTRAM) 50 mg tablet, Take 1 tablet (50 mg total) by mouth every 8 (eight) hours as needed for pain, Disp: , Rfl: Current Facility-Administered Medications: Carrier Fluids for Secondary Infusion - 0.9% Sodium Chloride, 30 mL, intravenous, PRN, Shannon Hassan MD sodium chloride 0.9% flush 0.5-20 mL, 0.5-20 mL, intra-catheter, Q8H [facility], Shannon Hassan MD sodium chloride 0.9% flush 0.5-20 mL, 0.5-20 mL, intra-catheter, PRN, Shannon Hassan MD sodium chloride 0.9% flush 10-20 mL, 10-20 mL, intra-catheter, PRN, Shannon Hassan MD sodium chloride 0.9% flush 5-10 mL, 5-10 mL, intra-catheter, Q12H [facility], Shannon Hassan MD sodium chloride 0.9% infusion, 30 mL/hr, intravenous, Continuous, Shannon Hassan MD Home Meds: HOME MEDICATIONS : acetaminophen (TYLENOL) 500 mg tablet albuterol HFA (PROVENTIL HFA,VENTOLIN HFA,PROAIR HFA) 90 mcg/actuation inhaler ALPRAZolam (XANAX) 0.25 mg tablet amLODIPine (NORVASC) 5 mg tablet diphenhydrAMINE (BENADRYL) 25 mg capsule docusate sodium (COLACE) [address] (CYMBALTA) 60 mg capsule fluticasone propion-salmeteroL (ADVAIR DISKUS) 500-50 mcg/dose diskus inhaler fluticasone propionate (FLONASE) 50 mcg/actuation nasal spray levothyroxine (SYNTHROID) 75 mcg tablet nortriptyline (PAMELOR) 10 mg capsule omeprazole (PriLOSEC) 20 mg capsule ondansetron (ZOFRAN) 4 mg tablet Ozempic 1 mg/dose (4 mg/3 mL) pen injector injection propranolol LA (INDERAL LA) 60 mg 24 hr capsule rosuvastatin (CRESTOR) 10 mg tablet topiramate (TOPAMAX) 25 mg tablet traMADoL (ULTRAM) 50 mg tablet Allergies: Allergies Allergen Reactions Oxaliplatin Swollen tongue Throat swelling Tetanus Vaccines And Toxoid Swelling and Rash Vitals: There were no vitals filed for this visit. LABS Pertinent Labs: Recent Labs Lab Units 07/11/23 1259 CREATININE POC mg/dL 1.4* IMAGING Reviewed PERTINENT PHYSICAL EXAM Constitutional: alert and oriented x3 and no acute distress Lungs: No tachypnea, post-surgical changes of bilateral mastectomy with discoloration of the left chest wall. Swelling of the left chest wall. Anesthesia of the anterior left chest wall. Heart: Heart regular rate and rhythm Abdomen: soft, non-tender Neurologic: fluent speech and symmetric facial expressions Assessment: Plan for drain placement in left chest wall fluid collection Airway Exam: normal ASA Classification:Class 3: Patient with severe systemic disease Sedation Plan: Min Sedation Adjunctive Procedures: None NONE PO status: Last PO: NPO since midnight documented in this encounter Plan of Treatment Not on file documented as of this encounter Procedures Procedure Name Priority Date/Time Associated Diagnosis Comments FLUID DRAIN SOFT TISSUE Schedule Routine, Read Routine (OP Routine) 07/17/2023 3:18 PM CDT Malignant 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, estrogen receptor negative (HCC) documented in this encounter Results * IR Inject Abscess Catheter (07/30/2023 8:41 AM CDT) Anatomical Region Laterality Modality Body N/A Radio Fluoroscop y 07/30/2023 11:5 9 AM CDT Impressions 07/30/2023 11:59 AM CDT Stable collection with no evidence of fistula to adjacent structures. ?? Catheter was downsized to facilitate drainage and resolution. PLAN: Continue to monitor catheter output as well as the patient's clinical condition. ?? The catheter should not be flushed. ?? The patient will follow-up with us in 1 week. If questions arise, please contact us by calling [phone]. Electronically signed by: Ronny Xavier PA-C Narrative 07/30/2023 11:59 AM CDT EXAMINATION: ??DRAINAGE CATHETER EVALUATION AND EXCHANGE HISTORY: ??67-year-old woman with history of breast cancer and colon adenocarcinoma, status post bilateral mastectomy with increasing fluid collection in the left chest wall. IR placed a 12 Moldovan cope loop catheter on 07/17/2023. Patient reports approximately 1 ounce of thin clear yellow fluid daily output. PROVIDER PRESENCE: ??Ronny Xavier PA-C was present from the beginning to the end of the procedure. SEDATION: ??The patient did not require conscious sedation for the procedure. TECHNIQUE: ??Prior to beginning the procedure, [place] Protocol was used to confirm the patient's identity and planned procedure. Fluoroscopy time has been recorded in the electronic medical record. Maximum sterile barriers including cap, mask, hand hygiene, sterile gloves, sterile gown, large sterile drape and 2% chlorhexidine for cutaneous antisepsis were used. After obtaining a millinery teacher image, the catheter was injected with dilute contrast and multiple diagnostic fluoroscopic spot images were obtained. The skin overlying the collection was sterilely prepped, draped and infiltrated with 1% buffered lidocaine. The catheter was then exchanged over a Bentson guidewire for a new 10 Moldovan Haque-Ryder catheter. ??Limited contrast injection confirmed appropriate placement of the catheter. The catheter was secured in place with a Prolene stitch and connected to gravity drainage. ??A sterile dressing was applied. ESTIMATED BLOOD LOSS: Minimal. CONDITION: Stable DISCHARGED TO: ??Recovery and then to Home. FINDINGS: ??Images from the catheter injection demonstrate the cavity has decreased in size. Catheter was downsized and retracted into slightly larger superficial collection to facilitate resolution . The catheter was draining scant amounts of serous fluid. Images from the catheter exchange show the catheter tip centered in largest portion of residual cavity. Procedure Note Ronny Xavier PA - 07/30/2023 EXAMINATION: DRAINAGE CATHETER EVALUATION AND EXCHANGE HISTORY: 67-year-old woman with history of breast cancer and colon adenocarcinoma, status post bilateral mastectomy with increasing fluid collection in the left chest wall. IR placed a 12 Moldovan cope loop catheter on 07/17/2023. Patient reports approximately 1 ounce of thin clear yellow fluid daily output. PROVIDER PRESENCE: Ronny Xavier PA-C was present from the beginning to the end of the procedure. SEDATION: The patient did not require conscious sedation for the procedure. TECHNIQUE: Prior to beginning the procedure, [place] Protocol was used to confirm the patient's identity and planned procedure. Fluoroscopy time has been recorded in the electronic medical record. Maximum sterile barriers including cap, mask, hand hygiene, sterile gloves, sterile gown, large sterile drape and 2% chlorhexidine for cutaneous antisepsis were used. After obtaining a millinery teacher image, the catheter was injected with dilute contrast and multiple diagnostic fluoroscopic spot images were obtained. The skin overlying the collection was sterilely prepped, draped and infiltrated with 1% buffered lidocaine. The catheter was then exchanged over a [employer] guidewire for a new 10 Moldovan Haque-Ryder catheter. Limited contrast injection confirmed appropriate placement of the catheter. The catheter was secured in place with a Prolene stitch and connected to gravity drainage. A sterile dressing was applied. ESTIMATED BLOOD LOSS: Minimal. CONDITION: Stable DISCHARGED TO: Recovery and then to Home. FINDINGS: Images from the catheter injection demonstrate the cavity has decreased in size. Catheter was downsized and retracted into slightly larger superficial collection to facilitate resolution . The catheter was draining scant amounts of serous fluid. Images from the catheter exchange show the catheter tip centered in largest portion of residual cavity. IMPRESSION: Stable collection with no evidence of fistula to adjacent structures. Catheter was downsized to facilitate drainage and resolution. PLAN: Continue to monitor catheter output as well as the patient's clinical condition. The catheter should not be flushed. The patient will follow-up with us in 1 week. If questions arise, please contact us by calling [phone]. Electronically signed by: Ronny Xavier PA-C us Shannon Hassan MD IMG IR PROCEDURES F inal Result * IR Fluid Drain Soft Tissue (07/17/2023 3:18 PM CDT) Anatomical Region Laterality Modality Body N/A Radio Fluoroscop y 07/17/2023 3:28 PM CDT Impressions 07/18/2023 2:06 PM CDT Successful image guided seroma drainage. PLAN: This tube should not be flushed with saline. Follow up in 2 weeks for drain check and possible sclerosis. Dictated by: Shannon Hassan MD The radiology attending physician has personally reviewed this study, and had reviewed and/or edited this written report and agrees with it. Electronically signed by: Corwin Goldman M.D. Narrative 07/18/2023 2:06 PM CDT EXAMINATION: ??PERCUTANEOUS DRAINAGE (STD) HISTORY/INDICATION: ??67-year-old woman with history of breast cancer and colon adenocarcinoma, status post bilateral mastectomy with increasing fluid collection in the left chest wall ATTENDING PRESENCE: Corwin Goldman M.D., the attending radiologist was present from the beginning to the end of the procedure. ?? SEDATION: Procedural sedation was administered under the attending physician's direction and continuous monitoring by a trained nurse specialist who was independent from those actually performing the procedure. ??Total monitored sedation time was 26 minutes. TECHNIQUE: The risks, benefits and alternatives were discussed and informed consent was obtained. ??Prior to beginning the procedure, [place] Protocol was used to confirm the patient's identity and planned procedure. ??If fluoroscopy was used, fluoroscopy time has been recorded in the electronic medical record. Maximum sterile barriers including cap, mask, hand hygiene, sterile gloves, sterile gown, large sterile drape and 2% chlorhexidine for cutaneous antisepsis were used. ?? The skin overlying the fluid collection in the left side was sterilely prepped, draped and infiltrated with 1% buffered lidocaine. The targeted collection was then accessed with a 21 gauge needle using imaging guidance which included ultrasound. ??Contrast was injected to confirm needle placement. ?? A guidewire was advanced and coiled within the collection before dilating the tract to ??10 Fr. ??A 12-Moldovan Cook catheter was then advanced over the guidewire and secured in place with a stitch of 0-Prolene. The catheter was connected to gravity drainage. ??A sterile dressing was applied. A sample of the fluid was not sent for culture ESTIMATED BLOOD LOSS: Minimal. CONDITION: Stable DISCHARGED TO: Recovery and then to home. ?? FINDINGS: Images from the procedure revealed a collection that ??was located over the left chest wall and axilla. The fluid appeared clear, thin and yellow. ??An approximate volume of 30 cc was drained at the time of the procedure. Procedure Note Corwin Goldman MD - 07/18/2023 EXAMINATION: PERCUTANEOUS DRAINAGE (STD) HISTORY/INDICATION: 67-year-old woman with history of breast cancer and colon adenocarcinoma, status post bilateral mastectomy with increasing fluid collection in the left chest wall ATTENDING PRESENCE: Corwin Goldman M.D., the attending radiologist was present from the beginning to the end of the procedure. SEDATION: Procedural sedation was administered under the attending physician's direction and continuous monitoring by a trained nurse specialist who was independent from those actually performing the procedure. Total monitored sedation time was 26 minutes. TECHNIQUE: The risks, benefits and alternatives were discussed and informed consent was obtained. Prior to beginning the procedure, [place] Protocol was used to confirm the patient's identity and planned procedure. If fluoroscopy was used, fluoroscopy time has been recorded in the electronic medical record. Maximum sterile barriers including cap, mask, hand hygiene, sterile gloves, sterile gown, large sterile drape and 2% chlorhexidine for cutaneous antisepsis were used. The skin overlying the fluid collection in the left side was sterilely prepped, draped and infiltrated with 1% buffered lidocaine. The targeted collection was then accessed with a 21 gauge needle using imaging guidance which included ultrasound. Contrast was injected to confirm needle placement. A guidewire was advanced and coiled within the collection before dilating the tract to 10 Fr. A 12-Moldovan Cook catheter was then advanced over the guidewire and secured in place with a stitch of 0-Prolene. The catheter was connected to gravity drainage. A sterile dressing was applied. A sample of the fluid was not sent for culture ESTIMATED BLOOD LOSS: Minimal. CONDITION: Stable DISCHARGED TO: Recovery and then to home. FINDINGS: Images from the procedure revealed a collection that was located over the left chest wall and axilla. The fluid appeared clear, thin and yellow. An approximate volume of 30 cc was drained at the time of the procedure. IMPRESSION: Successful image guided seroma drainage. PLAN: This tube should not be flushed with saline. Follow up in 2 weeks for drain check and possible sclerosis. Dictated by: Shannon Hassan MD The radiology attending physician has personally reviewed this study, and had reviewed and/or edited this written report and agrees with it. Electronically signed by: Corwin Goldman M.D. us Kianna Bunch MD PhD IMG IR PROCEDURES Final Re sult documented in this encounter Visit Diagnoses Diagnosis Malignant 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, 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, estrogen receptor negative (HCC) documented in this encounter Administered Medications Inactive Administered Medications - up to 3 most recent administrations Medication Order MAR Action Action Date Dose Rate Site fentaNYL (SUBLIMAZE) preservative free injection intravenous, As needed, Starting on Sat07/17/23 at 1450, Intra-Op Given 07/17/2023 3:00 PM CDT 50 mcg Given 07/17/2023 2:50 PM CDT 50 mcg lidocaine (PF) (XYLOCAINE) 10 mg/mL (1 %) preservative free injection As needed, Starting on Sat07/17/23 at 1503, Intra-Procedure (IR), Indications: Administration of Local AnesthesiaIndications:Administration of Local Anesthesia Given 07/17/2023 3:03 PM CDT 5 mL midazolam (VERSED) 1 mg/mL injection As needed, Starting on Sat07/17/23 at 1450, Intra-Op Given 07/17/2023 3:00 PM CDT 1 mg Given 07/17/2023 2:50 PM CDT 1 mg sodium chloride 0.9% infusion 30 mL/hr, intravenous, Continuous, Starting on Sat07/17/23 at 1400, Pre-Procedure (IR) New Bag 07/17/2023 2:14 PM CDT 30 mL/hr 30 mL/hr documented in this encounter Orders Medications Ordered That Jefferson ht Not Have Been Administered Count Last Ordered Date First Ordered Date Carrier Fluids for Secondary Infusion - 0.9% Sodium Chloride 1 07/17/2023 sodium chloride 0.9% flush 0.5-20 mL 2 07/04 sodium chloride 0.9% flush 10-20 mL 1 07/16 sodium chloride 0.9% flush 5-10 mL 1 2023 Discharge Count Last Ordered Date First Orde red Date DISCHARGE PATIENT 1 07/17/2023 documented in this encounter Care Teams Web Applications Architect Relationship Specialty Start Date End Date Dat Benito DO [address] [place] [address] PCP - General Internal Medicine 09/28/21 Aft, Kianna Machado MD PhD [address] [place] [address] Surgeon Surgical Oncology 11/22/17 Santiago Gilbert MD [address] [place] [address] Field Cane Scale Clerk Gastroenterology 11/22/17 Abbi Ventura MD [address] [place] [address] [address] [place] [address] Medical Oncologist/Food Order Delivery Runner Medical Oncology 12/03/18 Montse Thompson MD [address] [place] [address] [address] [place] [address] Consulting Physician Gynecologic Oncology 12/03/18 Lela Hardy MD PhD [address] [place] [address] [address] [place] [address] Radiation Oncologist Radiation Oncology 12/23/18 Trena Obando MD [address] [place] [address] Consulting Physician Neurology 09/18/21 documented as of this encounter
--- OUTSIDE RECORDS SUMMARY | 2024-04-24 13:35 | XMS_ITS | Encounter Summary ---
Author Organization [facility] [place] Address [address] [place] [address] Phone Care Team Providers Care Miller [employer] Mill Name Role Phone Aft, Kianna Machado MD PhD Unavailable [phone] Santiago Gilbert MD Unavailable [phone] Abbi Ventura MD Unavailable Montse Thompson MD Unavailable [phone] Lela Hardy MD PhD Unavailable [phone] Trena Obando MD Unavailable [phone] Dat Benito DO Primary Care Provider [phone] Reason for Referral * MRI/CAT/PET Scan (Routine) - Closed Specialty Diagnoses / Procedures Referred By Contac t Referred To Contact Radiology Diagnoses Malignant 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, estrogen receptor negative (HCC) Chest wall pain Procedures MRI Brachial Plexus W WO Contrast Right Abbi Ventura MD [address] [facility] [address] [place] [address] Phone: tel: fax: [facility] Referral ID Status Reason Start Date Expiration Date Visits Re quested Visits Authorized [id number] Closed 02/05/2024 03/06/2025 1 1 * MRI/CAT/PET Scan (Routine) - Closed Specialty Diagnoses / Procedures Referred By Vijaya t Referred To Contact Radiology Diagnoses Malignant 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, estrogen receptor negative (HCC) Chest wall pain Procedures MRI Chest W WO Contrast Abbi Ventura MD [address] [facility] [address] [place] [address] Phone: tel: fax: [facility] Referral ID Status Reason Start Date Expiration Date Visits Re quested Visits Authorized [id number] Closed 02/05/2024 03/06/2025 1 1 Encounter Details Date Type Department Care Team (Late st Contact Info) Description 02/05/2024 3:30 PM CDT Office Visit 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 Patient Identifying Data: Aleah Gerber is a 68 y.o. female seen in followup today DIAGNOSIS: 1. 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 Diagnosed 10/2017 3. 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 Myriad My risk showed no mutation in MLH 1 or PMS2 suggesting that the patient does not have Grullon syndrome. 4. Allergic reaction to oxaliplatin during cycle 6 of FOLFOX 5. DYPD genotype normal. 6. DVT/PE diagnosed 05/28/18 7. Stage I Right breast invasive ductal carcinoma - ER negative WI negative Her 2 negative diagnosed 03/2022 TREATMENT HISTORY: COLON CANCER In March 2017 she had changes in her caliber of her stool involving thinner stool, with increased stool frequency, no blood in the stool. Colonoscopy done on 10/22/17 with finding of a 4 x 5 cm ulcerated, non-obstructing mass in the proximal descending colon, with stigmata of recent bleeding, multiple semi- pedunculated polyps ~ 7-10 mm in the cecum, multiple sessile polyps ~ /4-6 mm in the mid-ascending colon, and sessile polyps seen in the mid transverse and rectum, reportedly polpys were completely excised, and biopsy of mass done. Pathology from mass biopsy was consistent with adenocarcinoma, with mucinous component, with pathology of polyps ranging from tubular adenoma to tubo-villous adenoma. / Staging chest/abdominal/pelvic CT scan in October 2017, an abnormal appearing 1.8 cm mass in the left breast was found, with irregular wall thickening involving approximately 6 x 5 cm segment of distal transverse colon at the splenic flexure, no abdominal pelvic lymph nodes identified. Laproscopic left hemicolectomy on 12/27/[address] Dmitry Sanderson, pathology revealed Mucinous adenocarcinoma, 6.5 cm, in left colon, tumor invades through muscularis propria into pericolonic adipose tissue, and invades through the serosa to involve the omentum (pT4b), 18 regional lymph nodes, no evidence of metastatic carcinoma (0/18; pN0. IHC with loss of MLH-1 and PMS-2, and retained nuclear expression for MSH-2 and MSH-6, favoring high microsatellite instability Adjuvant FOLFOX chemotherapy started on 02/06/18 Patient went to ER after cycle 2 of FOLFOX with slurred speech and weakness in right side of her body. Evaluation showed no evidence of stroke. She was seen by Allergy Immunology and there is no evidence of type I allergic reaction on skin testing. 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 Starting cycle 3 oxaliplatin dose was reduced by 25% and 5FU/LV continued at full dose For cycle 4, patient declined Oxaliplatin as she was concerned that she had diarrhea and mood changes due to Oxaliplatin. Patient received 5FU/LV at full dose For cycle 5 of adjuvant chemotherapy she got 5FU/LV at full dose and Oxaliplatin at 50% dose. She was willing to try one more dose of Oxaliplatin at 50% reduced dose to see how it goes. Cycle 6 of FOLFOX with 5FU/LV at 25% reduced dose ( 25% dose reduced due to grade 2 mucositis) and oxaliplatin at 50% reduced dose. Oxaliplatin discontinued midway cycle 6 on 04/23/18 for tongue swelling and throat closing. 5FU/LV continued at reduced dose Cycle 8 of adjuvant chemotherapy with 5FU/LV on 05/21/18 CT CAP 01/24/2023 - No evidence of recurrent or metastatic disease within the chest, abdomen, or pelvis. Changes of bilateral mastectomy with decrease in size of the left anterior chest wall seroma and resolution of the right axillary seroma. BREAST CANCER Patient underwent a diagnostic mammogram on 11/05/17 revealing ~ 1.8 cm spiculated mass at 9: 00 of the left breast, and a 4 mm satellite lesion, no abnormal lymph nodes. U/S revealed of left breast a 2.3 cm hypoechoic spiculated mass at 9: 00, 8 cm from the nipple. She underwent a core biopsy of left breast mass, with pathology consistent with invasive ductal carcinoma ~ 1.4 cm, Grade 3, ER 0, WI 0, HER-2 IHC 0. Partial mastectomy and sentinel lymph node biopsy on 01/14/[address] Kianna Bunch, pathology revealed invasive ductal carcinoma, measauring 3.5 cm, Grade 3, positive posterior margin 1 cm in length, DCIS (high grade), No evidence of malignancy in three lymph nodes (0/3) Adjuvant chemotherapy for breast cancer was started after she completed adjuvant chemotherapy for colon cancer. Due to neuropathy we decided to get give her AC chemotherapy instead of TC chemotherapy. Cycle 1 of AC chemotherapy for breast cancer started on 06/25/18 finished cycle 4 on 08/12/2018 Left breast re-excision of surgery from 11/11/2018 showed no residual disease. Adjuvant radiation therapy completed 02/04/2019. Screening breast MRI done on 03/23/22 showed 1 cm abnormality right breast. Biopsy of right breast lesion on 04/13/22 showed invasive ductal carcinoma. ER negative WI negative Her 2 negative Bilateral mastectomy 05/22/22 showed invasive ductal carcinoma measuring 5 mm in the right breast, grade 2/3, negative margins, no cancer in 8 lymph nodes in the breast, no cancer in 2 axillary sentinel nodes, left breast had focal ductal cytological atypia with microcalcification, favor treatment effect, no invasive cancer, three negative nodes Mammaprint could not be done as quantity of tumor was not sufficient. D/w patient about adjuvant CMF and she wanted to hold off on it. Given small size of tumor, we elected to observe. Interval History C/o right chest wall pain including right axilla and going down medial aspect of right arm x 3 months. Pain lasts for 2-4 hours at a time and gets better. It happens every day or every other day. Left chest wall no longer swollen or hurting Neuropathy in feet is stable. Ocular migraine still comes on and off. Review of Systems Review of systems positive for symptoms as per interval history. All other review of systems negative. Objective Vitals: Vitals BP 121/68 (BP Location: Right arm) Pulse 75 Temp 36.6 ??C (97.9 ??F) (Oral) Resp 16 Wt 97.5 kg (215 lb) LMP (LMP Unknown) SpO2 100% BMI 31.75 kg/m?? PERFORMANCE STATUS: ECOG 1 SKIN: Normal turgor, normal texture. No petechia, no ecchymosis, No rash HEENT: Head is normocephalic/atraumatic. Pupils are equal, round and reactive to light. Sclerae areanicteric. The mucous membranes are pink and moist. NECK: There is no jugular venous distention. CHEST: The Lungs are clear to auscultation. There are no rales, rhonchi, nor wheezes. CARDIOVASCULAR: Regular rate and rhythm without murmurs, rubs, gallops. ABDOMEN: Soft, non-tender, with normal active bowel sounds. There is no hepatosplenomegaly, There are no palpable masses, healed surgery site. EXTREMITIES: There is no cyanosis, clubbing nor edema. NEUROLOGICAL: AAOx3. Power is 5/5 in all extremities. Detailed sensory exam not done. LYMPH NODES: The patient has no palpable cervical, supraclavicular, submandibular adenopathy. BREAST: s/p bilateral mastectomy. Left chest wall has telangectasia. Lab/Radiology/Diagnostic Review: Hematology Lab History Latest Ref Rng & Units 04/11/2023 12:52 07/04/2023 10:10 02/05/2024 15:00 Labs - Hematology WBC 3.8 - 9.9 K/cumm 7.1 7.7 9.0 Total Hb, POC 11.9 - 15.5 g/dL 11.9 11.7 11.1 Hct 35.6 - 45.5 % 37.4 36.4 35.0 Plt 150 - 400 K/cumm 176 171 179 Neutrophil abs 1.5 - 6.5 K/cumm 4.8 5.3 6.2 Lymphocytes, abs 0.8 - 3.3 K/cumm 1.5 1.5 1.8 Lab Results Component Value Date SODIUM 137 07/04/2023 POTASSIUM 4.3 07/04/2023 CO2 25 07/04/2023 BUNSER 27 (H) 07/04/2023 GLUCOSE 160 07/04/2023 CREATININE 1.4 (H) 07/11/2023 CALCIUM 9.0 07/04/2023 CHLORIDE 106 07/04/2023 ALBUMIN 4.1 07/04/2023 AST 17 07/04/2023 ALT 8 07/04/2023 ALKPHOS 98 07/04/2023 BILITOT 0.3 07/04/2023 PROT 7.2 07/04/2023 ANIONGAP 6 07/04/2023 Tumor Marker History Latest Ref Rng & Units 04/11/2023 12:52 07/04/2023 10:10 Tumor Markers CEA <=5.0 ng/mL 1.4 1.5 CA 125 ag 0.0 - 38.1 units/mL 7.4 7.0 Recent labs, radiology and pathology reviewed in [facility] ASSESSMENT: Stage I [id number] right breast cancer -ER negative WI negative Her 2 negative- Mammaprint could not be done due to insufficient tumor. Given complaints of significant pain in her right chest wall, right axilla radiating down the right arm, I am ordering MRI of the right chest wall and right brachial plexus to make sure she does not have metastatic disease causing pain. If MRI of the chest wall and brachial plexus is negative then the patient likely has discomfort related to the nerve endings at the surgery site causing paresthesias. T4bN0 disease, Stage IIC colon adenocarcinoma- no evidence of cancer recurrence - stopped ordering scans as she has completed 5 years of follow-up. We will order scans in the future if clinically indicated. T2N0, Stage IIA triple negative left breast cancer - no evidence of cancer recurrence. [facility] BRCA2 mutation, and VUS in BRIP1 and NBN: Status post bilateral oophorectomy, bilateral mastectomy. Her sister had pancreatic cancer. F/u Dr. Fofana. She is also being followed by Dr. Thompson to screen for primary peritoneal carcinomatosis Depression/anxiety: f/u Psychology and PCP CIPN- at grade 1 level. PLAN: Follow-up on the right chest wall, right brachial plexus MRI results Tentatively scheduled for ROV in 6 months with CEA and Ca 125 to screen for primary peritoneal carcinomatosis. If however the MRI shows findings of concern I will see the patient back sooner. F/u Dr. Gilbert, her local finish molder, colonoscopy completed 12/2021 and repeat in 3 years Aleah Gerber will follow up as directed above, she was encouraged to call in the interim with questions or concerns. We will continue to monitor and review for side effects from treatment. Abbi Ventura MD sonar subsystem equipment operator Division of Oncology Section of Medical Oncology [facility] Information Assurance Manager completed by using [employer] Direct speaking software, therefore, transcriptionvariances may occur. documented in this encounter Plan of Treatment Scheduled Orders Name Type Priority Associated Diagnoses Orde r Schedule CEA Lab Routine Malignant 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, 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) Expected: 09/02/2024, Expires: 01/30/2025 CA 125 Lab Routine Malignant 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, 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) Expected: 09/02/2024, Expires: 01/30/2025 Comprehensive metabolic panel Lab Routine Malignant 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, 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) Expected: 09/02/2024, Expires: 01/30/2025 CBC with auto differential Lab Routine Malignant 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, 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) Expected: 09/02/2024, Expires: 01/30/2025 documented as of this encounter Results * MRI Brachial Plexus W WO [...] by: Josselyn Mancera M.D. Abbi Ventura MD [facility] MRI PROCEDURES Final Result * MRI Chest [...] Ventura MD IMG MRI PROCEDURES Final Result documented in this encounter Visit Diagnoses Diagnosis 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)- Primary Malignant neoplasm 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, estrogen receptor negative (HCC) Chest wall pain Painful respiration Malignant 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, estrogen receptor negative (HCC) Chest wall pain Painful respiration documented in this encounter Orders Appointment Requests Count Last Ordered Date Fi rst Ordered Date ON[facility]N CLINIC APPOINTMENT REQUEST 2 024 ONCBCN LAB APPOINTMENT 1 02/05/2024 documented in this encounter Care Teams Miller [employer] Mill Relationship Specialty Start Date End Date Dat Benito DO [address] [place] [address] PCP - General Internal Medicine 09/28/21 Aft, Kianna Machado MD PhD [address] [place] [address] Surgeon Surgical Oncology 11/22/17 Santiago Gilbert MD [address] [place] [address] Intelligence Engineer Gastroenterology 11/22/17 Abbi Ventura MD [address] [place] [address] [address] [place] [address] Medical Oncologist/Roading Engineer Medical Oncology 12/03/18 Montse Thompson MD [address] [facility] [address] [place] [address] Consulting Physician Gynecologic Oncology 12/03/18 Lela Hardy MD PhD [address] [place] [address] [address] [place] [address] Radiation Oncologist Radiation Oncology 12/23/18 Trena Obando MD [address] [place] [address] Consulting Physician Neurology 09/18/21 documented as of this encounter
--- OUTSIDE RECORDS SUMMARY | 2024-04-24 13:35 | XMS_ITS | Encounter Summary ---
Author Organization [facility] Healthcare Address [address] [place] [address] Care Team Providers Care Production Superintendent Hydro Name Role Phone Kianna Bunch MD PhD Unavailable [phone] Santiago Gilbert MD Unavailable [phone] Abbi Ventura MD Unavailable Montse Thompson MD Unavailable [phone] Lela Hardy MD PhD Unavailable [phone] Trena Obando MD Unavailable [phone] Dat Benito DO Primary Care Provider [phone] Reason for Referral * MRI/CAT/PET Scan (Routine) - Closed Specialty Diagnoses / Procedures Referred By Contac t Referred To Contact Radiology Diagnoses Malignant 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, estrogen receptor negative (HCC) H/O bilateral mastectomy Localized swelling of chest wall Procedures CT Chest W Contrast Kianna Bunch MD PhD [address] [place] [address] Phone: tel: fax: [address] [phone] Referral ID Status Reason Start Date Expiration Date Visits Re quested Visits Authorized [id number] Closed 07/05/2023 08/03/2024 1 1 ER PRESS OPERATOR Reason for Visit * MRI/CAT/PET Scan (Routine) - Closed Specialty Diagnoses / Procedures Referred By Contac t Referred To Contact Radiology Diagnoses Malignant 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, estrogen receptor negative (HCC) H/O bilateral mastectomy Localized swelling of chest wall Procedures CT Chest W Contrast Kianna Bunch MD PhD [address] [place] [address] Phone: tel: fax: [address] [phone] Referral ID Status Reason Start Date Expiration Date Visits Re quested Visits Authorized [id number] Closed 07/05/2023 08/03/2024 1 1 Encounter Details Date Type Department Care Team (Latest Contact Info) Description 07/11/2023 12:19 PM FILTER PRESS OPERATOR - 07/11/2023 11:59 PM FILTER PRESS OPERATOR Hospital Encounter [facility] [address] [place] [id number] Kianna Bunch MD PhD [address] [place] [address] Malignant 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, estrogen receptor negative (HCC); H/O bilateral mastectomy; Localized swelling of chest wall Discharge Disposition: Discharge to home or self [...] on file 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 FILTER PRESS OPERATOR Gender Identity Not on file Sexual Orientation Not on file documented as of this encounter Medications at Time of Discharge [...] or self care documented in this encounter Plan of Treatment Not on file documented as of this encounter Procedures Procedure Name Priority Date/Time Associated Diagnosis Comments CT CHEST W CONTRAST Schedule Routine, Read Routine (OP Routine) 07/11/2023 1:19 PM FILTER PRESS OPERATOR Malignant 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, estrogen receptor negative (HCC) H/O bilateral mastectomy Localized swelling of chest wall POCT CREATININE - DEVICE Routine 07/11/2023 12:59 PM FILTER PRESS OPERATOR documented in this encounter Results * CT Chest W Contrast (07/11/2023 1:19 PM FILTER PRESS OPERATOR) Anatomical Region Laterality Modality Body N/A Computed Tomogra phy 07/11/2023 2:48 PM FILTER PRESS OPERATOR Impressions 07/11/2023 8:45 PM FILTER PRESS OPERATOR 1. ??Postsurgical changes of bilateral mastectomy with interval increase in size of a simple appearing left anterior chest wall fluid collection, likely representing a seroma. 2. ??No evidence of metastatic disease in the chest. Dictated by: Corwin Crews MD The radiology attending physician has personally reviewed this study, and had reviewed and/or edited this written report and agrees with it. Electronically signed by: Dat Wright M.D. 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 TECHNIQUE: ??Transaxial computed tomographic images of the chest ??were obtained with intravenous contrast according to the standard protocol after the uneventful administration of 75 mL Opti-Ray 350 intravenous contrast. COMPARISON: 01/24/2023 FINDINGS: ?? Postsurgical changes of bilateral mastectomy with interval increase in size of a bulging annulus left anterior chest wall fluid collection measuring up to 13.7 x 4.9 cm with a thin wall. ??No thoracic lymphadenopathy. ??Heart size is normal without pericardial effusion. ??Mild atherosclerotic disease of the thoracic aorta which is normal in caliber. ??The main pulmonary artery is normal in caliber. ??The central airways are patent. No suspicious pulmonary nodule. ??No focal consolidation, pleural effusion, or pneumothorax. Mild centrilobular emphysema. Imaged portions of the upper abdomen show focal fat deposition in hepatic segments 4A/B. ??There is cholelithiasis without evidence of acute cholecystitis. No suspicious osseous lesions. ??Diffuse idiopathic skeletal hyperostosis is present. 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 TECHNIQUE: Transaxial computed tomographic images of the chest were obtained with intravenous contrast according to the standard protocol after the uneventful administration of 75 mL Opti-Ray 350 intravenous contrast. COMPARISON: 01/24/2023 FINDINGS: Postsurgical changes of bilateral mastectomy with interval increase in size of a bulging annulus left anterior chest wall fluid collection measuring up to 13.7 x 4.9 cm with a thin wall. No thoracic lymphadenopathy. Heart size is normal without pericardial effusion. Mild atherosclerotic disease of the thoracic aorta which is normal in caliber. The main pulmonary artery is normal in caliber. The central airways are patent. No suspicious pulmonary nodule. No focal consolidation, pleural effusion, or pneumothorax. Mild centrilobular emphysema. Imaged portions of the upper abdomen show focal fat deposition in hepatic segments 4A/B. There is cholelithiasis without evidence of acute cholecystitis. No suspicious osseous lesions. Diffuse idiopathic skeletal hyperostosis is present. IMPRESSION: 1. Postsurgical changes of bilateral mastectomy with interval increase in size of a simple appearing left anterior chest wall fluid collection, likely representing a seroma. 2. No evidence of metastatic disease in the chest. Dictated by: Corwin Crews MD The radiology attending physician has personally reviewed this study, and had reviewed and/or edited this written report and agrees with it. Electronically signed by: Dat Wright M.D. us Kianna Bunch MD PhD IMG CT PROCEDURES Final Re sult * (ABNORMAL) POCT creatinine (07/11/2023 12:59 PM FILTER PRESS OPERATOR) Creatinine POC 1.4(H) 0.6 - 1.1 mg/dL Blood 07/11/2023 12:5 9 PM FILTER PRESS OPERATOR 07/11/2023 12:59 PM FILTER PRESS OPERATOR us Kianna Bunch MD PhD LAB POCT ORDERABLES - ROSEMARY CE Final Result [facility] Department [place] [address] documented in this encounter Visit Diagnoses Diagnosis Malignant 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, estrogen receptor negative (HCC) H/O bilateral mastectomy Localized swelling of chest wall documented in this encounter Administered Medications Inactive Administered Medications - up to 3 most recent administrations Medication Order MAR Action Action Date Dose Rate Site ioversoL (OPTIRAY 350) injection 100 mL 100 mL, intravenous, Once in imaging, contrast, Starting on Bonnie 07/11/23 at 1314, For 1 dose Contrast Given 07/11/2023 1:14 PM FILTER PRESS OPERATOR 75 mL documented in this encounter Orders Medications Ordered That Jefferson ht Not Have Been Administered Count Last Ordered Date First Ordered Date ioversoL (OPTIRAY 350) injection 100 mL 1 0 07/11/2023 documented in this encounter Care Teams Production Superintendent Hydro Relationship Specialty Start Date End Date Dat Benito DO [address] [place] [address] PCP - General Internal Medicine 09/28/21 Aft, Kianna Machado MD PhD [address] [place] [address] Surgeon Surgical Oncology 11/22/17 Santiago Gilbert MD [address] [place] [address] Aeronautical Engineering Officer Gastroenterology 11/22/17 Abbi Ventura MD [address] [facility] [address] [place] [address] Medical Oncologist/Research Archaeologist Medical Oncology 12/03/18 Montse Thompson MD [address] [facility] [address] [place] [address] Consulting Physician Gynecologic Oncology 12/03/18 Lela Hardy MD PhD [address] [facility] [address] [place] [address] Radiation Oncologist Radiation Oncology 12/23/18 Trena Obando MD [address] [place] [address] Consulting Physician Neurology 09/18/21 documented as of this encounter
--- OUTSIDE RECORDS SUMMARY | 2024-04-24 13:35 | XMS_ITS | Encounter Summary ---
Author Organization [facility] Healthcare Address [address] [place] [address] Care Team Providers Care Director Of Catering Name Role Phone Aft, Kianna Machado MD PhD Unavailable [phone] Santiago Gilbert MD Unavailable [phone] Abbi Ventura MD Unavailable Montse Thompson MD Unavailable [phone] Lela Hardy MD PhD Unavailable [phone] Trena Obando MD Unavailable [phone] Dat Benito DO Primary Care Provider [phone] Reason for Referral * MRI/CAT/PET Scan (Routine) - Closed Specialty Diagnoses / Procedures Referred By Contac t Referred To Contact Radiology Diagnoses At high risk for pancreatic cancer BRCA2 gene mutation positive Procedures MRI Abdomen MRCP W WO Contrast Rosa Shaw NP [address] [facility] [address] [place] [address] Phone: tel: fax: [place] [address] [place] [address] Referral ID Status Reason Start Date Expiration Date Visits Re quested Visits Authorized [id number] Closed 10/25/2022 11/24/2023 1 1 IC BATH ATTENDANT Reason for Visit * MRI/CAT/PET Scan (Routine) - Closed Specialty Diagnoses / Procedures Referred By Vijaya t Referred To Contact Radiology Diagnoses At high risk for pancreatic cancer BRCA2 gene mutation positive Procedures MRI Abdomen MRCP W WO Contrast Rosa Shaw NP [address] [facility] [address] [place] [address] Phone: tel: fax: [facility] [address] [phone] Referral ID Status Reason Start Date Expiration Date Visits Re quested Visits Authorized [id number] Closed 10/25/2022 11/24/2023 1 1 Encounter Details Date Type Department Care Team (Latest Contact Info) Description 06/27/2023 10:10 AM PUBLIC BATH ATTENDANT - 06/27/2023 11:59 PM PUBLIC BATH ATTENDANT Hospital Encounter [facility] Imaging [id number] [address] At high risk for pancreatic cancer; BRCA2 gene mutation positive Discharge Disposition: Discharge to home or self [...] on file 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 PUBLIC BATH ATTENDANT Gender Identity Not on file Sexual Orientation [...] Name Priority Date/Time Associated Diagnosis Comments MRI ABDOMEN MRCP W WO CONTRAST Schedule Routine, Read Routine (OP Routine) 06/27/2023 11:15 AM PUBLIC BATH ATTENDANT At high risk for pancreatic cancer BRCA2 gene mutation positive POC ISTAT Routine 06/27/2023 10:27 AM PUBLIC BATH ATTENDANT documented in this encounter Results * MRI Abdomen MRCP W WO Contrast (06/27/2023 11:15 AM PUBLIC BATH ATTENDANT) Anatomical Region Laterality Modality Body N/A Magnetic Resonan ce 06/27/2023 12:3 9 PM PUBLIC BATH ATTENDANT Impressions 06/27/2023 1:32 PM PUBLIC BATH ATTENDANT No evidence of primary malignancy or metastatic disease in the abdomen. Dictated by: Lily Rashid M.D. The radiology attending physician has personally reviewed this study, and had reviewed and/or edited this written report and agrees with it. Electronically signed by: Nicholas Olmos M.D. Narrative 06/27/2023 1:32 PM PUBLIC BATH ATTENDANT EXAMINATION: 1. MAGNETIC RESONANCE IMAGING OF THE ABDOMEN WITH AND WITHOUT CONTRAST 2. THREE DIMENSIONAL RECONSTRUCTION OF THE BILIARY TREE AND PANCREATIC DUCT HISTORY: Pancreatic cancer screening. TECHNIQUE: Magnetic resonance imaging of the abdomen was performed prior to and following the uneventful administration of intravenous Gadolinium contrast. The raw data was processed on the scanner by the technologist for 3 dimensional reconstructions of the intrahepatic ducts, extrahepatics ducts, and pancreatic duct. Protocol: Liver MRCP Contrast: Eovist 20 mL COMPARISON: MRI abdomen 01/27/2022 FINDINGS: Liver: Normal liver surface contours. Mild diffuse hepatic steatosis. No abnormal iron deposition. - Bile ducts: Normal. Low insertion of right posterior bile duct. - Focal liver lesions: No suspicious hepatic lesion. Unchanged focal fat deposition in segment 4A/B (series 3, image 35). - Vasculature: Conventional hepatic arterial anatomy. Portal and hepatic veins are patent. Gallbladder: Large gallstone without evidence of acute cholecystitis. Pancreas: Normal parenchyma. No solid or cystic lesion. No ductal dilatation. Spleen: Normal. Adrenals: Normal. Kidneys: Bilateral renal cysts. No hydronephrosis. Other findings: No pathologically enlarged lymph nodes or free fluid. Visualized bowel and mesentery are normal. Abdominal aorta is normal in course and caliber. Left breast implant. No suspicious osseous lesions. Procedure Note Nicholas Olmos MD - 06/27/2023 EXAMINATION: 1. MAGNETIC RESONANCE IMAGING OF THE ABDOMEN WITH AND WITHOUT CONTRAST 2. THREE DIMENSIONAL RECONSTRUCTION OF THE BILIARY TREE AND PANCREATIC DUCT HISTORY: Pancreatic cancer screening. TECHNIQUE: Magnetic resonance imaging of the abdomen was performed prior to and following the uneventful administration of intravenous Gadolinium contrast. The raw data was processed on the scanner by the technologist for 3 dimensional reconstructions of the intrahepatic ducts, extrahepatics ducts, and pancreatic duct. Protocol: Liver MRCP Contrast: Eovist 20 mL COMPARISON: MRI abdomen 01/27/2022 FINDINGS: Liver: Normal liver surface contours. Mild diffuse hepatic steatosis. No abnormal iron deposition. - Bile ducts: Normal. Low insertion of right posterior bile duct. - Focal liver lesions: No suspicious hepatic lesion. Unchanged focal fat deposition in segment 4A/B (series 3, image 35). - Vasculature: Conventional hepatic arterial anatomy. Portal and hepatic veins are patent. Gallbladder: Large gallstone without evidence of acute cholecystitis. Pancreas: Normal parenchyma. No solid or cystic lesion. No ductal dilatation. Spleen: Normal. Adrenals: Normal. Kidneys: Bilateral renal cysts. No hydronephrosis. Other findings: No pathologically enlarged lymph nodes or free fluid. Visualized bowel and mesentery are normal. Abdominal aorta is normal in course and caliber. Left breast implant. No suspicious osseous lesions. IMPRESSION: No evidence of primary malignancy or metastatic disease in the abdomen. Dictated by: Lily Rachid, M.D. The radiology attending physician has personally reviewed this study, and had reviewed and/or edited this written report and agrees with it. Electronically signed by: Nicholas Olmos M.D. us Rosa Shaw NP IMG MRI PROCEDURES Bethanie l Result * (ABNORMAL) POC ISTAT (06/27/2023 10:27 AM PUBLIC BATH ATTENDANT) Creatinine, POC, bld 1.9(H) 0.6 - 1.3 mg/dL [facility] P[facility] Device Number [id number] [facility] POC Performer [id number] [facility]MAT[facility] Blood 06/27/2023 10:2 7 AM PUBLIC BATH ATTENDANT 06/27/2023 10:27 AM PUBLIC BATH ATTENDANT Abbi Ventura MD LAB BLOOD ORDERABLES Final Resul t [facility] [address] [facility] Department [place] [address] documented in this encounter Visit Diagnoses Diagnosis At high risk for pancreatic cancer BRCA2 gene mutation positive documented in this encounter Administered Medications Inactive Administered Medications - up to 3 most recent administrations Medication Order MAR Action Action Date Dose Rate Site gadoxetate (EOVIST) injection 10 mL 10 mL, intravenous, Once in imaging, contrast, Starting on Bonnie 06/27/23 at 1027, For 1 dose Contrast Given 06/27/2023 10:28 AM PUBLIC BATH ATTENDANT 20 mL documented in this encounter Orders Medications Ordered That Jefferson ht Not Have Been Administered Count Last Ordered Date First Ordered Date gadoxetate (EOVIST) injection 10 mL 1 06/27 sodium chloride 0.9% flush 50 mL 1 06/27/19 24 documented in this encounter Care Teams Director Of Catering Relationship Specialty Start Date End Date Dat Benito DO [address] [place] [address] PCP - General Internal Medicine 09/28/21 Aft, Kianna Machado MD PhD [address] [place] [address] Surgeon Surgical Oncology 11/22/17 Santiago Gilbert MD [address] [place] [address] Plate Preparer Gastroenterology 11/22/17 Abbi Ventura MD 10 [facility] [address] [place] [address] Medical Oncologist/Data Entry Clerk Medical Oncology 12/03/18 Montse Thompson MD [address] [facility] [address] [place] [address] Consulting Physician Gynecologic Oncology 12/03/18 Lela Hardy MD PhD [address] [facility] [address] [place] [address] Radiation Oncologist Radiation Oncology 12/23/18 Trena Obando MD [address] [place] [address] Consulting Physician Neurology 09/18/21 documented as of this encounter
--- OUTSIDE RECORDS SUMMARY | 2024-04-24 13:35 | XMS_ITS | Encounter Summary ---
Author Organization [facility] Address [address] [place] [address] Phone Care Team Providers Care Distance Education Director Name Role Phone Aft, Kianna Machado MD PhD Unavailable [phone] Santiago Gilbert MD Unavailable [phone] Abbi Ventura MD Unavailable Montse Thompson MD Unavailable [phone] Lela Hardy MD PhD Unavailable [phone] Trena Obando MD Unavailable [phone] Dat Benito DO Primary Care Provider [phone] Encounter Details Date Type Department Care Team (Late st Contact Info) Description 06/25/2023 Orders Only [facility] Gastroenterology [facility] [address] [place] [address] Roe Fofana MD [address] [place] [address] Social History Tobacco Use Types Packs/Day Years [...] on file 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 CRATING AND MOVING ESTIMATOR Gender Identity Not on file Sexual Orientation Not on file documented as of this encounter Plan of Treatment Not on file documented as of this encounter Visit Diagnoses Not on filedocumented in this encounter Care Teams Distance Education Director Relationship Specialty Start Date End Date Dat Benito DO [address] [place] [address] PCP - General Internal Medicine 09/28/21 Aft, Kianna Machado MD PhD [address] [place] [address] Surgeon Surgical Oncology 11/22/17 Santiago Gilbert MD [address] [place] [address] Horticultural Agent Gastroenterology 11/22/17 Abbi [facility]ura MD [facility] [address] [address] [place] [address] Medical Oncologist/Nursing Unit Clerk Medical Oncology 12/03/18 Montse Thompson MD [address] [place] [address] Consulting Physician Gynecologic Oncology 12/03/18 Lela Hardy MD PhD [address] [place] [address] Radiation Oncologist Radiation Oncology 12/23/18 Trena Obando MD [address] [place] [address] Consulting Physician Neurology 09/18/21 documented as of this encounter
--- OUTSIDE RECORDS SUMMARY | 2024-04-24 13:35 | XMS_ITS | Encounter Summary ---
Author Organization [facility] Address [address] [place] [address] Phone Care Team Providers Care Intern Brand Name Role Phone AftKianna MD PhD Unavailable [phone] Santiago Gilbert MD Unavailable [phone] Abbi Ventura MD Unavailable Montse Thompson MD Unavailable [phone] Lela Hardy MD PhD Unavailable [phone] Trena Obando MD Unavailable Dat Benito DO Primary Care Provider [phone] Reason for Referral * MRI/CAT/PET Scan (Routine) - Closed Specialty Diagnoses / Procedures Referred By Contac t Referred To Contact Radiology Diagnoses Malignant 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, estrogen receptor negative (HCC) H/O bilateral mastectomy Localized swelling of chest wall Procedures CT Chest W Contrast Aft, Kianna Machado MD PhD [address] [place] [address] Phone: tel: fax: [address] [address] Referral ID Status Reason Start Date Expiration Date Visits Re quested Visits Authorized [id number] Closed 07/05/2023 08/03/2024 1 1 ER Encounter Details Date Type Department Care Team (Late st Contact Info) Description 07/05/2023 Telephone [facility] Surgery [address] [facility] 5th [place] [address] [place] [address] Adam Castillo Social History Tobacco Use Types Packs/Day Years [...] on file 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 HUNTER Gender Identity Not on file Sexual Orientation Not on file documented as of this encounter Miscellaneous Notes * Addendum Note - Meredith Timmons RN - 07/05/2023 4:23 PM CSTAddended by: MEREDITH TIMMONS on: 07/05/2023 04:23 PM Modules accepted: Orders ER * Telephone Encounter - Meredith Timmons RN - 07/05/2023 4:[address] ordered per Dr. Bunch recs and pt notified of scheduling instructions via phone call. ER * Telephone Encounter - Adam Castillo - 07/05/2023 3:06 PM CST PC to pt to discuss her Lt chest wall swelling. Pt reports 2-3 weeks ago her left chest wall started to swell. No redness but is painful. Last week it was larger than now, and she had chills alternating with hot flashes but declines fever, and was nauseated. She started PT around the same time thisshowed up, but doesn't remember feeling a pull or injury. She also let someone take her BP in the left arm in Jun. She has a hx of lymphedema in left arm and chest. She says the swelling has started in the right chest wall and this area is tender. Dr. Ventura was concerned it was a hematoma, she included a pic in her notes on . RN rec'd pt wear a sports br for compression and apply ice or heatand take tylenol for the pain. Urgent message sent to [facility]. ER documented in this encounter Plan of Treatment Not on file documented as of this encounter Results * CT Chest W Contrast (07/11/2023 1:19 PM HUNTER) Anatomical Region Laterality Modality Body N/A Computed Tomogra phy 07/11/2023 2:48 PM HUNTER Impressions 07/11/2023 8:45 PM HUNTER 1. ??Postsurgical changes of bilateral mastectomy with [...] Dat Wright M.D. Narrative 07/11/2023 8:45 PM HUNTER EXAMINATION: CT CHEST W CONTRAST HISTORY: Left [...] it. Electronically signed by: Dat Wright M.D. Kianna Bunch MD PhD IMG CT PROCEDURES Final Re sult documented in this encounter Visit Diagnoses Diagnosis Malignant 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, estrogen receptor negative (HCC)- Primary Encounter for follow-up examination after completed treatment for malignant neoplasm H/O bilateral mastectomy Localized swelling of chest wall Malignant 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, estrogen receptor negative (HCC) H/O bilateral mastectomy Localized swelling of chest wall documented in this encounter Care Teams Intern Brand Relationship Specialty Start Date End Date Dat Benito DO [address] [place] [address] PCP - General Internal Medicine 09/28/21 Aft, Kianna Machado MD PhD [address] [place] [address] Surgeon Surgical Oncology 11/22/17 Santiago Gilbert MD [address] [place] [address] Enterostomal Therapy Nurse Gastroenterology 11/22/17 Abbi Ventura MD [address] [place] [address] [address] [place] [address] Medical Oncologist/Lumber Stacker Operator Medical Oncology 12/03/18 Montse Thompson MD [address] [place] [address] [address] [place] [address] Consulting Physician Gynecologic Oncology 12/03/18 Lela Hardy MD PhD [address] [place] [address] [address] [place] [address] Radiation Oncologist Radiation Oncology 12/23/18 Trena Obando MD [address] [place] [address] Consulting Physician Neurology 09/18/21 documented as of this encounter
--- OUTSIDE RECORDS SUMMARY | 2024-04-24 13:35 | XMS_ITS | Encounter Summary ---
Author Organization [facility] Address [address] [place] [address] Phone Care Team Providers Care Butter Maker Name Role Phone AileentKianna MD PhD Unavailable [phone] Santiago Gilbert MD Unavailable [phone] Abbi Ventura MD Unavailable Montse Thompson MD Unavailable [phone] Lela Hardy MD PhD Unavailable [phone] Trena Obando MD Unavailable [phone] Dat Benito DO Primary Care Provider [phone] Encounter Details Date Type Department Care Team (Late st Contact Info) Description 07/10/2023 Telephone [facility] Surgery [facility] Advanced Medicine 5th [place] [address] [place] [address] Kianna Bunch MD PhD [address] [place] [address] Social History Tobacco Use Types [...] on file 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 INK GRINDER Gender Identity Not on file Sexual Orientation Not on file documented as of this encounter Miscellaneous Notes * Telephone Encounter - Breanna Ignacio RN - 07/10/2023 7:57 AM CST ----- Message from Kianna Bunch MD PhD sent at 07/09/2023 7:53 PM INK GRINDER ----- Regarding: RE: Creatinine level She will just need to have a cr drawn the day of the exam and hopefully it will be fine. She reallyneeds to have the contrast ----- Message ----- From: Meredith Timmons RN Sent: 07/09/2023 5:13 PM INK GRINDER To: Kianna Bunch MD PhD; RT Guille; # Subject: RE: Creatinine level Dr. Bunch, See below and please reply all to advise: This patient is scheduled for CT with contrast on 07-11-2023. The last creatinine was 1.5 on 07-04-2023. We will perform a POC creatinine when the patient arrives for their CT, what is the highest levelthe physician is comfortable with us administering the contrast? If it is above the range the physician feels comfortable with, should we proceed with doing the CT without contrast or cancel the exam? Radiology will routinely inject contrast up to a creatinine of 1.5. Above that, we will reach out to the referring providers office for direction since every patient has a different baseline or situation that may require contrast administration. We are trying to prevent patient delays and frustration the day of scan by gathering this information ahead of time. Thank you, Tova [phone] ----- Message ----- From: Tova Burnett, RT Sent: 07/09/2023 10:36 AM INK GRINDER To: Meredith Timmons, RN Subject: Creatinine level This patient is scheduled for CT with contrast on 07-11-2023. The last creatinine was 1.5 on 07-04-2023. We will perform a POC creatinine when the patient arrives for their CT, what is the highest levelthe physician is comfortable with us administering the contrast? If it is above the range the physician feels comfortable with, should we proceed with doing the CT without contrast or cancel the exam? Radiology will routinely inject contrast up to a creatinine of 1.5. Above that, we will reach out to the referring providers office for direction since every patient has a different baseline or situation that may require contrast administration. We are trying to prevent patient delays and frustration the day of scan by gathering this information ahead of time. Thank you, Tova [phone] GRINDER documented in this encounter Plan of Treatment Scheduled Orders Name Type Priority Associated Diagnoses Orde r Schedule Creatinine Lab Routine Pre-procedural laboratory examination Expected: 07/10/2023, Expires: 07/09/2024 documented as of this encounter Visit Diagnoses Diagnosis Pre-procedural laboratory examination- Primary documented in this encounter Care Teams Butter Maker Relationship Specialty Start Date End Date Dat Benito DO [address] [place] [address] PCP - General Internal Medicine 09/28/21 Aft, Kianna Machado MD PhD [address] [place] [address] Surgeon Surgical Oncology 11/22/17 Santiago Gilbert MD [address] [place] [address] Janitorial Manager Gastroenterology 11/22/17 Abbi Ventura MD [address] [place] [address] [address] [place] [address] Medical Oncologist/Visual Merchandising Associate Medical Oncology 12/03/18 Montse Thompson MD [address] [facility] [address] [place] [address] Consulting Physician Gynecologic Oncology 12/03/18 Lela Hardy MD PhD [address] [facility] [address] [place] [address] Radiation Oncologist Radiation Oncology 12/23/18 Trena Obando MD [address] [place] [address] Consulting Physician Neurology 09/18/21 documented as of this encounter
--- OUTSIDE RECORDS SUMMARY | 2024-04-24 13:35 | XMS_ITS | Encounter Summary ---
Author Organization [facility] Address [address] [place] [address] Phone Care Team Providers Care Regional Environmental Manager Name Role Phone Aft, Kianna Machado MD PhD Unavailable [phone] Santiago Gilbert MD Unavailable [phone] Abbi Ventura MD Unavailable Montse Thompson MD Unavailable [phone] Lela Hardy MD PhD Unavailable [phone] Trena Obando MD Unavailable [phone] Dat Benito DO Primary Care Provider [phone] Reason for Visit * Reason Onset Date Comments Test Preparation 07/10/2023 Encounter Details Date Type Department Care Team (Late st Contact Info) Description 07/10/2023 Telephone [facility] Surgery [facility] Advanced Medicine 5th [place] [address] [place] [address] Meredith Timmons, LYDIA Test Preparation Social History Tobacco Use Types Packs/Day Years [...] on file 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 WAITER/WAITRESS COUNTER Gender Identity Not on file Sexual Orientation Not on file documented as of this encounter Miscellaneous Notes * Telephone Encounter - Meredith Timmons RN - 07/10/2023 8:34 AM WAITER/WAITRESS COUNTER Called pt and left message encouraging adequate fluid intake today. Discouraged intake of fluids with high sugar/caffeine content and encouraged water intake to ensure kidney function is within acceptable range for CT w contrast tomorrow. ER/WAITRESS COUNTER * Telephone Encounter - Meredith Timmons RN - 07/10/2023 8:34 AM WAITER/WAITRESS COUNTER ----- Message from Kianna Bunch MD PhD sent at 07/09/2023 7:53 PM WAITER/WAITRESS COUNTER ----- Regarding: RE: Creatinine level She will just need to have a cr drawn the day of the exam and hopefully it will be fine. She reallyneeds to have the contrast ----- Message ----- From: Meredith Timmons RN Sent: 07/09/2023 5:13 PM WAITER/WAITRESS COUNTER To: Kianna Bunch MD PhD; Tova Burnett RT; # Subject: RE: Creatinine level Dr. Bunch, [...] information ahead of time. Thank you, Tova [phone] ----- Message ----- From: Tova Burnett, RT Sent: 07/09/2023 10:36 AM WAITER/WAITRESS COUNTER To: Meredith Timmons RN Subject: Creatinine level This patient is [...] information ahead of time. Thank you, Tova [phone] ER/WAITRESS COUNTER documented in this encounter Plan of Treatment Not on file documented as of this encounter Visit Diagnoses Not on filedocumented in this encounter Care Teams Regional Environmental Manager Relationship Specialty Start Date End Date Dat Benito DO [address] [place] [address] PCP - General Internal Medicine 09/28/21 Aft, Kianna Machado MD PhD [address] [place] [address] Surgeon Surgical Oncology 11/22/17 Santiago Gilbert MD [address] [place] [address] Gas Truck Driver Gastroenterology 11/22/17 Abbi Ventura MD [address] [facility] [address] [place] [address] Medical Oncologist/Sports Nutritionist Medical Oncology 12/03/18 Montse Thompson MD [address] [facility] [address] [place] [address] Consulting Physician Gynecologic Oncology 12/03/18 Lela Hardy MD PhD [address] [place] [address] [address] [place] [address] Radiation Oncologist Radiation Oncology 12/23/18 Trena Obando MD [address] [place] [address] Consulting Physician Neurology 09/18/21 documented as of this encounter
--- OUTSIDE RECORDS SUMMARY | 2024-04-24 13:35 | XMS_ITS | Encounter Summary ---
Author Organization [facility] Address [address] [place] [address] Phone Care Team Providers Care Roll Hand Name Role Phone Aft, Kianna Machado MD PhD Unavailable [phone] Santiago Gilbert MD Unavailable [phone] Abbi Ventura MD Unavailable Montse Thompson MD Unavailable [phone] Lela Hardy MD PhD Unavailable [phone] Trena Obando MD Unavailable [phone] Dat Benito DO Primary Care Provider [phone] Encounter Details Date Type Department Care Team (Late st Contact Info) Description 07/04/2023 10:30 AM TOP BOTTOM ATTACHING MACHINE OPERATOR Lab [facility] Oncology [address] [place] [address] Malignant 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, estrogen receptor negative (HCC); 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) Social History Tobacco Use Types Packs/Day Years Used Date Smoking Tobacco: Former Cigarettes 0.8 42 1 3 - 2014 Smokeless Tobacco: Never Alcohol Use Standard Drinks/Week [...] on file 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 TOP BOTTOM ATTACHING MACHINE OPERATOR Gender Identity Not on file Sexual Orientation Not on file documented as of this encounter Plan of Treatment Not on file documented as of this encounter Visit Diagnoses Diagnosis Malignant 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, 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) Malignant neoplasm of descending colon documented in this encounter Orders Appointment Requests Count Last Ordered Date Fi rst Ordered Date ONCBCN LAB APPOINTMENT 1 07/04/2023 documented in this encounter Care Teams Roll Hand Relationship Specialty Start Date End Date Dat Benito DO [address] [place] [address] PCP - General Internal Medicine 09/28/21 Aft, Kianna Machado MD PhD [address] [place] [address] Surgeon Surgical Oncology 11/22/17 Santiago Gilbert MD [address] [place] [address] Verse Writer Gastroenterology 11/22/17 Abbi Ventura MD [address] [place] [address] Medical Oncologist/Account Classification Clerk Medical Oncology 12/03/18 Montse Thompson MD [address] [place] [address] Consulting Physician Gynecologic Oncology 12/03/18 Lela Hardy MD PhD [address] [facility] [address] [place] [address] Radiation Oncologist Radiation Oncology 12/23/18 Trena Obando MD [address] [place] [address] Consulting Physician Neurology 09/18/21 documented as of this encounter
--- OUTSIDE RECORDS SUMMARY | 2024-04-24 13:35 | XMS_ITS | Encounter Summary ---
Author Organization [facility] Address [address] [place] [address] Care Team Providers Care Slubber Operator Name Role Phone Aft, Kianna Machado MD PhD Unavailable [phone] Santiago Gilbert MD Unavailable [phone] Abbi Ventura MD Unavailable Montse Thompson MD Unavailable [phone] Lela Hardy MD PhD Unavailable [phone] Trena Obando MD Unavailable [phone] Dat Benito DO Primary Care Provider [phone] Encounter Details Date Type Department Care Team (Late st Contact Info) Description 02/05/2024 2:45 PM CDT Lab [address] [address] Malignant neoplasm of upper-inner quadrant [...] on file 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 FLOOR ASSEMBLER Gender Identity Not on file Sexual Orientation Not on file documented as of this encounter Plan of Treatment Not on file documented as of this encounter Procedures Procedure Name Priority Date/Time Associated Diagnosis Comments EGFR Routine 02/05/2024 3:00 PM CDT Malignant [...] in this encounter Results * (ABNORMAL) eGFR (02/05/2024 3:00 PM CDT) [...] MD LAB BLOOD ORDERABLES Final Resul t [facility] [place] [address] * Differential, auto (02/05/2024 3:00 PM CDT) Neutrophil abs 6.2 1.5 - 6.5 K/cumm Comment:Testing performed by : [facility], [address] [place] [address] Imm gran abs 0.0 0.0 - 0.1 K/cumm [facility] Lymphocyte abs 1.8 0.8 - 3.3 K/cumm [facility] Monocyte abs 0.5 0.2 - 0.8 K/cumm [facility] Eosinophil abs 0.4 0.0 - 0.5 K/cumm [facility] Basophil abs 0.1 0.0 - 0.1 K/cumm [facility] Neutrophil pct 69.5 % [facility] Comment: Interpretive Data Percent cell count reference ranges are not reported, since discordance with absolute values may lead to misinterpretation of CBC data. Current Interpretive Data was last revised on 2017. Imm gran pct 0.3 % [facility] Comment: Interpretive Data Percent cell count reference ranges are not reported, since discordance with absolute values may lead to misinterpretation of CBC data. Current Interpretive Data was last revised on 2017. Lymphocyte pct 19.7 % [facility] Comment: Interpretive Data Percent cell count reference ranges are not reported, since discordance with absolute values may lead to misinterpretation of CBC data. Current Interpretive Data was last revised on 2017. Monocyte pct 5.5 % [facility] Comment: Interpretive Data Percent cell count reference ranges are not reported, since discordance with absolute values may lead to misinterpretation of CBC data. Current Interpretive Data was last revised on 2017. Eosinophil pct 4.1 % [facility] Comment: Interpretive Data Percent cell count reference ranges are not reported, since discordance with absolute values may lead to misinterpretation of CBC data. Current Interpretive Data was last revised on 2017. Basophil pct 0.9 % [facility] Comment: Interpretive Data Percent cell count reference ranges are not reported, since discordance with absolute values may lead to misinterpretation of CBC data. Current Interpretive Data was last revised on 2017. Blood 02/05/2024 3:00 PM CDT 02/05/2024 3:00 PM CDT us Abbi Ventura MD LAB BLOOD ORDERABLES Final Resul t [facility] [place] [address] * (ABNORMAL) CBC with auto differential (02/05/2024 3:00 PM CDT) [facility] WBC 9.0 3.8 - 9.9 K/cumm Comment:Testing performed by : [facility], [address] [place] [address] Hgb 11.1(L) 11.9 - 15.5 g/dL [facility] Comment:Testing performed by : [facility], [address] [place] [address] Hct 35.0(L) 35.6 - 45.5 % [facility] Comment:Testing performed by : [address] [address] Plt 179 150 - 400 K/cumm [facility] Comment:Testing performed by : [address] [address] MPV 9.6 9.1 - 12.3 fL [facility] RBC 3.85(L) 3.90 - 5.20 M/cumm [facility] MCV 90.9 81.3 - 96.4 fL [facility] MCH 28.8 27.1 - 33.3 pg [facility] MCHC 31.7(L) 32.3 - 35.7 g/dL [facility] RDW CV 13.6 11.1 - 14.9 % [facility] RDW SD 45.3 35.7 - 48.1 fL [facility] NRBC abs 0.00 0.00 - 0.01 K/cumm [facility] Blood 02/05/2024 3:00 PM CDT 02/05/2024 3:00 PM CDT us Abbi Ventura MD LAB BLOOD ORDERABLES Final Resul t [facility] [place] [address] * CA 125 (02/05/2024 3:00 PM CDT) [facility] CA 125 ag 8.0 0.0 - 38.1 units/mL Comment: Interpretive Data The Bo CA 125 assay procedure was used. Results from different manufacturers or methods may not be comparable. Serial testing should be performed using the same method. Blood 02/05/2024 3:00 PM CDT 02/05/2024 7:10 PM CDT Abbi Ventura MD LAB BLOOD ORDERABLES Final Resul t Performing Organization Address [facility] [place] [address] * CEA (02/05/2024 3:00 PM CDT) [facility] CEA 1.3 <=5.0 ng/mL Comment: Interpretive Data: [...] ORDERABLES Final Resul t Performing Organization Address [facility] [place] [address] * (ABNORMAL) Comprehensive metabolic panel (02/05/2024 3:00 PM CDT) [facility] Sodium 139 135 - 145 mmol/L Comment:Testing performed by : [facility], [address] [place] [address] Potassium, pl 4.0 3.3 - 4.9 mmol/L [facility] Chloride 109 97 - 110 mmol/L [facility] CO2 24 22 - 32 mmol/L [facility] Anion gap 6 2 - 15 mmol/L [facility] BUN 24 6 - 25 mg/dL [facility] Creatinine 1.69(H) 0.60 - 1.10 mg/dL [facility] Glucose 105 70 - 199 mg/dL [facility] Comment: Interpretive Data Fasting glucose >/= [...] 2022. Calcium 9.1 8.5 - 10.3 mg/dL [facility] Bilirubin, total 0.4 0.1 - 1.2 mg/dL [facility] Protein, pl 7.0 6.5 - 8.5 g/dL [facility] Albumin 4.5 3.5 - 5.0 g/dL [facility] Alk phos 72 40 - 130 Units/L [facility] ALT 11 7 - 45 Units/L [facility] AST 18 10 - 45 Units/L [facility] Blood 02/05/2024 3:00 PM CDT 02/05/2024 3:00 PM CDT us Abbi Ventura MD LAB BLOOD ORDERABLES Final Resul t [facility] Department [place] [address] documented in this encounter Visit Diagnoses Diagnosis Malignant 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, 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) Malignant neoplasm of descending colon documented in this encounter Orders Appointment Requests Count Last Ordered Date Fi rst Ordered Date ONCBCN LAB APPOINTMENT 1 02/05/2024 documented in this encounter Care Teams Slubber Operator Relationship Specialty Start Date End Date Dat Benito DO [address] [place] [address] PCP - General Internal Medicine 09/28/21 Aft, Kianna Machado MD PhD [address] [place] [address] Surgeon Surgical Oncology 11/22/17 Santiago Gilbert MD [address] [place] [address] Captain Airline Pilot Gastroenterology 11/22/17 Abbi Ventura MD [address] [facility] [address] [place] [address] Medical Oncologist/Midlevel Provider Medical Oncology 12/03/18 Montse Thompson MD [address] [facility] [address] [place] [address] Consulting Physician Gynecologic Oncology 12/03/18 Lela Hardy MD PhD [address] [facility] [address] [place] [address] Radiation Oncologist Radiation Oncology 12/23/18 Trena Obando MD [address] [place] [address] Consulting Physician Neurology 09/18/21 documented as of this encounter
--- OUTSIDE RECORDS SUMMARY | 2024-04-24 13:35 | XMS_ITS | Encounter Summary ---
Author Organization [facility] Address [address] [place] [address] Phone Care Team Providers Care Diazo Technician Name Role Phone AileentKianna MD PhD Unavailable [phone] Santiago Gilbert MD Unavailable [phone] Abbi Ventura MD Unavailable Montse Thompson MD Unavailable Lela Hardy MD PhD Unavailable [phone] Trena Obando MD Unavailable [phone] Dat Benito DO Primary Care Provider [phone] Encounter Details Date Type Department Care Team (Late st Contact Info) Description 07/13/2023 Telephone [facility] Surgery [facility] Advanced Medicine 5th [place] [address] [place] [address] Kianna Bunch MD PhD [address] [place] [address] Social History Tobacco Use Types [...] on file 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 TEXTILE SCREEN MAKER Gender Identity Not on file Sexual Orientation Not on file documented as of this encounter Miscellaneous Notes * Telephone Encounter - Kianna Bunch MD PhD - 07/13/2023 12:[address] dw pt will have drain placed by IR. ILE SCREEN MAKER documented in this encounter Plan of Treatment Not on file documented as of this encounter Visit Diagnoses Not on filedocumented in this encounter Care Teams Diazo Technician Relationship Specialty Start Date End Date Dat Benito DO [address] [place] [address] PCP - General Internal Medicine 09/28/21 Kianna Bunch MD PhD [address] [place] [address] Surgeon Surgical Oncology 11/22/17 Santiago Gilbert MD [address] [place] [address] Media Strategist Gastroenterology 11/22/17 Abbi Ventura MD [address] [place] [address] [address] [place] [address] Medical Oncologist/Central Office Supervisor Medical Oncology 12/03/18 Montse Thompson MD [address] [facility] [address] [place] [address] Consulting Physician Gynecologic Oncology 12/03/18 Lela Hardy MD PhD [address] [facility] [address] [place] [address] Radiation Oncologist Radiation Oncology 12/23/[address] [facility] [address] [place] [address] Consulting Physician Neurology 09/18/21 documented as of this encounter
--- OUTSIDE RECORDS SUMMARY | 2024-04-24 13:35 | XMS_ITS | Encounter Summary ---
Author Organization [facility] Address [address] [place] [address] Care Team Providers Care Skein Winding Operator Name Role Phone Aft, Kianna Machado MD PhD Unavailable [phone] Santiago Gilbert MD Unavailable [phone] Abbi Ventura MD Unavailable Montse Thompson MD Unavailable [phone] Lela Hardy MD PhD Unavailable [phone] Trena Obando MD Unavailable [phone] Dat Benito DO Primary Care Provider [phone] Reason for Referral * Diagnostic Imaging (Routine) - Closed Specialty Diagnoses / Procedures Referred By Contronny t Referred To Contact Radiology Diagnoses Malignant 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, estrogen receptor negative (HCC) Procedures IR Inject Abscess Catheter Ronny Xavier PA [address] [facility] [address] [place] [address] Phone: tel: fax: [address] [address] Referral ID Status Reason Start Date Expiration Date Visits Re quested Visits Authorized [id number] Closed 07/30/2023 08/28/2024 1 1 Reason for Visit * Diagnostic Imaging (Routine) - Closed Specialty Diagnoses / Procedures Referred By Vijaya simpson Referred To Contact Radiology Diagnoses Malignant 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, estrogen receptor negative (HCC) Procedures IR Inject Abscess Catheter Ronny Xavier PA [address] [facility] [address] [place] [address] Phone: tel: fax: [address] [place] [address] Referral ID Status Reason Start Date Expiration Date Visits Re quested Visits Authorized [id number] Closed 07/30/2023 08/28/2024 1 1 Encounter Details Date Type Department Care Team (Latest Contact Info) Description 08/12/2023 12:22 PM CDT - 08/12/2023 11:59 PM CDT Hospital Encounter [facility] Radiology [address] [address] Malignant neoplasm of upper-inner quadrant of left [...] on file 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 DEVELOPER Gender Identity Not on file Sexual Orientation Not on file documented as of this encounter Last Filed Vital Signs Vital Sign Reading Time Taken Comments Blood Pressure 175/68 08/12/2023 1:45 PM CDT Pulse 69 08/12/2023 1:45 PM CDT Temperature 36.4 ??C (97.5 ??F) 08/12/2023 1:45 PM CD T Respiratory Rate 20 08/12/2023 1:45 PM CDT Oxygen Saturation 99% 08/12/2023 1:45 PM CDT Inhaled Oxygen Concentration - - Weight - - Height - - Body Mass Index - - documented in this encounter Discharge Instructions * Discharge Instructions* Amari Gifford MD - 08/12/2023 1:48 PM CDT Interventional Radiology Outpatient Discharge Instructions/Note Diagnosis: Left chest collection Procedure:Drain evaluation and removal Limitations: [] You received medication that may [...] teaching sheet given [x] You may shower tomorrow. [x] Leave the dressing in place for 24 hours. You may remove it after that time to cleanse the areaor shower. Replace with a similar dressing that is changed daily until the site is healed. [x] Do not submerge the site under water (no bathtubs, pools, etc.) until the site is healed, typically 7-10 days. Drainage Tube Care: [] Flush tube with [...] draining. To contact an Interventional Radiologist at [facility] call [phone] Saturday through Saturday from 7:30am-4:30pm. At all other times call [phone] and ask that the Interventional Radiologist be paged. To contact an Interventional Radiologist at [facility] call [phone] Saturday through Saturday from 7:30am-3:30pm. To contact an Interventional Radiologist RN at [facility] call [phone] Saturday through Saturday from 7:00 am-5:00 pm. To schedule an appointment with Interventional Radiology at [facility] call [phone] Saturday through Saturday from 7:30 am-4:00 pm. [...] at Please come to: [] 3rd Floor [facility] [] 4th [facility] [] [facility] [] [facility] Please call [phone] if you need to schedule a follow up appointment. documented in this encounter Medications at Time of Discharge acetaminophen (TYLENOL) 500 mg tablet Take 1 tablet (500 mg total) by mouth as needed 05/23/2022 ALPRAZolam (XANAX) 0.25 mg tablet Take 1 [...] or self care documented in this encounter Miscellaneous Notes * Post-Procedure Note - Amari Gifford MD - 08/12/2023 1:00 PM CDT Radiology Brief Post Procedure Note Attending: Kay Traffic Engineering Technician: Balta Sedation/Anesthesia: None Pre-Op/Pre-Procedure Diagnosis: Left chest wall collection Post-Op/Post-Procedure Diagnosis: Same Procedure Performed: Drain evaluation and removal Procedure Findings: Small residual collection around 10 Fr catheter. 10 Fr catheter was removed. Complications: None Estimated Blood Loss: None Specimens: None Condition: Stable Full report to follow. * Pre-Procedure Note - Sofie Miranda PA - 08/12/2023 1:00 PM CDT Radiology Procedure Plan Indication: s/p mastectomy c/b left chest wall fluid collection Planned Procedure: drain check, possible exchange or removal documented in this encounter Plan of Treatment Not on file documented as of this encounter Procedures Procedure Name Priority Date/Time Associated Diagnosis Comments ABSCESS CATHETER INJECTION Schedule Routine, Read Routine (OP Routine) 08/12/2023 1:47 PM CDT Malignant 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, estrogen receptor negative (HCC) documented in this encounter Results * IR Inject Abscess Catheter (08/12/2023 1:47 PM CDT) Anatomical Region Laterality Modality Body N/A Ultrasound 08/12/2023 2:13 PM CDT Impressions 08/13/2023 12:09 PM CDT Improving collection in the left chest wall without evidence of fistulization.. ?? Catheter was removed. PLAN: No follow-up required. If questions arise, please contact us by calling [phone]. Dictated by: Amari Gifford MD The radiology attending physician has personally reviewed this study, and had reviewed and/or edited this written report and agrees with it. Electronically signed by: Paulo Villanueva M.D. Narrative 08/13/2023 12:09 PM CDT EXAMINATION: ??DRAINAGE CATHETER EVALUATION AND REMOVAL HISTORY: ??68 year old with history of bilateral mastectomy complicated by left chest wall fluid collection requiring drain placement on 07/17/23. Reports 1/2 oz of thin clear yellow fluid output per day. ATTENDING PRESENCE: ??Paulo Villanueva M.D., the attending radiologist, was present from the beginning to the end of the procedure. SEDATION: ??The patient did not require conscious sedation for the procedure. TECHNIQUE: Prior to beginning the procedure, [place] Protocol was used to confirm the patient's identity and planned procedure. Fluoroscopy time has been recorded in the electronic medical record. After obtaining a lockmaker image, the catheter was injected with dilute contrast and multiple fluoroscopic images obtained. ?? The sutures on the catheter were cut and the catheter was removed without difficulty. A sterile dressing was applied to the skin site. ESTIMATED BLOOD LOSS: Minimal. CONDITION: Stable DISCHARGED TO: ??Recovery and then to Home. FINDINGS: Images from the catheter check demonstrate the cavity has decreased in size compared to 07/30/23.. The catheter was draining scant amounts of serous fluid. Procedure Note Paulo Villanueva MD - 08/13/2023 EXAMINATION: DRAINAGE CATHETER EVALUATION AND REMOVAL HISTORY: 68 year old with history of bilateral mastectomy complicated by left chest wall fluid collection requiring drain placement on 07/17/23. Reports 1/2 oz of thin clear yellow fluid output per day. ATTENDING PRESENCE: Paulo Villanueva M.D., the attending radiologist, was present from the beginning to the end of the procedure. SEDATION: The patient did not require conscious sedation for the procedure. TECHNIQUE: Prior to beginning the procedure, [place] Protocol was used to confirm the patient's identity and planned procedure. Fluoroscopy time has been recorded in the electronic medical record. After obtaining a lockmaker image, the catheter was injected with dilute contrast and multiple fluoroscopic images obtained. The sutures on the catheter were cut and the catheter was removed without difficulty. A sterile dressing was applied to the skin site. ESTIMATED BLOOD LOSS: Minimal. CONDITION: Stable DISCHARGED TO: Recovery and then to Home. FINDINGS: Images from the catheter check demonstrate the cavity has decreased in size compared to 07/30/23.. The catheter was draining scant amounts of serous fluid. IMPRESSION: Improving collection in the left chest wall without evidence of fistulization.. Catheter was removed. PLAN: No follow-up required. If questions arise, please contact us by calling [phone]. Dictated by: Amari Gifford MD The radiology attending physician has personally reviewed this study, and had reviewed and/or edited this written report and agrees with it. Electronically signed by: Paulo Villanueva M.D. us [facility] IR PROCEDURES Fin al Result documented in this encounter Visit Diagnoses Diagnosis Malignant 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, estrogen receptor negative (HCC) documented in this encounter Administered Medications Inactive Administered Medications - up to 3 most recent administrations Medication Order MAR Action Action Date Dose Rate Site ioversoL (OPTIRAY 350) injection As needed, Starting on 08/12/23 at 1342, Intra-Op Given 08/12/2023 1:42 PM CDT 5 mL documented in this encounter Orders Medications Ordered That Jefferson ht Not Have Been Administered Count Last Ordered Date First Ordered Date ioversoL (OPTIRAY 350) injection 1 08/12/19 24 Discharge Count Last Ordered Date First Orde red Date DISCHARGE PATIENT 1 08/12/2023 documented in this encounter Care Teams Skein Winding Operator Relationship Specialty Start Date End Date Dat Benito DO [address] [place] [address] PCP - General Internal Medicine 09/28/21 Aft, Kianna Machado MD PhD [address] [place] [address] Surgeon Surgical Oncology 11/22/17 Santiago Gilbert MD [address] [place] [address] Site Leasing Agent Gastroenterology 11/22/17 Abbi Ventura MD [address] [facility] [address] [place], [place] [id number] Medical Oncologist/Shuttle Veneering Supervisor Medical Oncology 12/03/18 Montse Thompson MD [address] [facility] [address] [place], [place] [address] Consulting Physician Gynecologic Oncology 12/03/18 Lela Hardy MD PhD [address] [facility] [address] [place] [address] Radiation Oncologist Radiation Oncology 12/23/18 Trena Obando MD [address] [place], [place] [address] Consulting Physician Neurology 09/18/21 documented as of this encounter
--- OUTSIDE RECORDS SUMMARY | 2024-04-24 13:35 | XMS_ITS | Encounter Summary ---
Author Organization [facility] Address [address] [place] [address] Care Team Providers Care Clasp Machine Operator Name Role Phone Aft, Kianna Machado MD PhD Unavailable [phone] Santiago Gilbert MD Unavailable [phone] Abbi Ventura MD Unavailable Montse Thompson MD Unavailable [phone] Lela Hardy MD PhD Unavailable [phone] Trena Obando MD Unavailable [phone] Dat Benito DO Primary Care Provider [phone] Reason for Visit * Reason Comments Cough Pt c/o cough, headac he, constipation that followed diarrhea. Symptoms present for 1 week Encounter Details Date Type Department Care Team (Late st Contact Info) Description 05/02/2023 11:00 AM CAREER SERVICES REPRESENTATIVE Office Visit [facility] at [address] [address] Radha Santos, KAM [address] [place] [address] COPD exacerbation (HCC) (Primary Dx) Social History Tobacco Use Types Packs/Day Years Used Date Smoking Tobacco: Former Cigarettes 0.8 42 1 973 - 2015 Smokeless Tobacco: Never Tobacco Cessation:Counseling Given: Not Answered Alcohol Use Standard Drinks/Week Comments Not Currently [...] Answer Date Recorded Getting School Help Needed Denies 04/16 Comments No Sex and Gender Information Value Date Recorded Sex Assigned at Not on file 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 CAREER SERVICES REPRESENTATIVE Gender Identity Not on file Sexual Orientation Not on file documented as of this encounter Last Filed Vital Signs Vital Sign Reading Time Taken Comments Blood Pressure 116/70 05/02/2023 10:53 AM CAREER SERVICES REPRESENTATIVE Pulse 70 05/02/2023 10:53 AM CAREER SERVICES REPRESENTATIVE Temperature 37.1 ??C (98.7 ??F) 05/02/2023 10:[address] Respiratory Rate 20 05/02/2023 10:53 AM CAREER SERVICES REPRESENTATIVE Oxygen Saturation 98% 05/02/2023 10:53 AM CAREER SERVICES REPRESENTATIVE Inhaled Oxygen Concentration - - Weight 102.5 kg (226 lb) 05/02/2023 10:53 AM CAREER SERVICES REPRESENTATIVE Height 175.3 cm (5' 9 ) 05/02/2023 10:53 AM CAREER SERVICES REPRESENTATIVE Body Mass Index 33.37 05/02/2023 10:53 AM CAREER SERVICES REPRESENTATIVE documented in this encounter Patient Instructions * Patient Instructions* Radha Santos, MARKETING SUMMER INTERN - 05/02/2023 11:00 AM CAREER SERVICES REPRESENTATIVE Tessalon as prescribed for cough. Avoid irritants such as cigarette smoke, pollen, dust, etc as this will aggravate cough. Suck on cough drops or hard candies to soothe a dry or sore throat. Cough drops won't stop your cough, but they may make your throat feel better. Over the counter loratadine (Claritin) or cetirizine (Zyrtec) to reduce secretions. Mucinex to thin secretions Breathe moist air from a humidifier, a hot shower, or a sink filled with hot water. The heat and moisture can help keep mucus in your airways moist so you can cough it out easily. Use nonprescription medicine, such as acetaminophen, ibuprofen, or aspirin, to relieve fever and body aches. Don't give aspirin to anyone younger than age 20. Rest more than usual. Drink plenty of fluids so that you do not become dehydrated and to keep mucous thin. Use an xkev-ebb-sfirmuh cough medicine such as Delsym or Robitussin. (Cough medicines may not be safe for young children or for people who have certain health problems.) Cough suppressants may help you to stop coughing. Expectorants, such as Mucinex, can help you bring up mucus when you cough. Follow up with primary care physician in 1 week, or sooner if symptoms worsen. GO TO ER WITH ANY WORSENING OF SYMPTOMS INCLUDING, BUT NOT LIMITED TO: SUDDEN HIGH FEVER, DIFFICULTY BREATHING OR CATCHING YOUR BREATH, OR SHORTNESS OF BREATH. ER SERVICES REPRESENTATIVE * Attachments The following attachments cannot be sent through Care Everywhere. * COPD (Chronic Obstructive Pulmonary Disease) (Rotary Drum Tanner) (Maltese) documented in this encounter Ordered Prescriptions Prescription Sig Dispense Quantity Refills Last Filled Start Date End Date azithromycin (ZITHROMAX) 250 mg tabletIndications: COPD exacerbation (HCC) Take 2 tablets the first day, then 1 tablet daily for 4 days. 6 tablet 05/02/2023 4 documented in this encounter Progress Notes * Radha Santos NP - 05/02/2023 11:00 AM CST Images from the original note were not included. Patient ID: Aleah Gerber is a 67 y.o. female followed by Dat Benito DO Chief Complaint Patient presents with Cough Pt c/o cough, headache, constipation that followed diarrhea. Symptoms present for 1 week Patient presents to the clinic with reports of cough, congestion, headache, and constipation (last BM yesterday-normal) for 1 week. Denies fevers, chest pain, difficulty breathing, body aches, and chills. She has taken tylenol for her symptoms. Patient reports history of COPD. Patient has been using her inhalers as needed. Review of Systems Constitutional: Negative for chills, fatigue and fever. HENT: Positive for congestion. Negative for ear pain, postnasal drip, rhinorrhea and sore throat. Respiratory: Positive for cough. Negative for chest tightness, shortness of breath and wheezing. Cardiovascular: Negative for chest pain. Gastrointestinal: Positive for constipation. Negative for diarrhea, nausea and vomiting. Musculoskeletal: Negative for myalgias. Neurological: Positive for headaches. Vitals: 05/02/23 1053 BP: 116/70 Pulse: 70 Resp: 20 Temp: 37.1 ??C (98.7 ??F) SpO2: 98% Weight: 102.5 kg (226 lb) Height: 175.3 cm (5' 9 ) Physical Exam Vitals reviewed. Constitutional: Appearance: She is well-developed. HENT: Right Ear: Tympanic membrane, ear canal and external ear normal. Tympanic membrane is not injected,erythematous or bulging. Left Ear: Tympanic membrane, ear canal and external ear normal. Tympanic membrane is not injected, erythematous or bulging. Nose: No congestion or rhinorrhea. Right Sinus: No maxillary sinus tenderness or frontal sinus tenderness. Left Sinus: No maxillary sinus tenderness or frontal sinus tenderness. Mouth/Throat: Lips: [place]. Mouth: Mucous membranes are moist. Pharynx: Uvula midline. No pharyngeal swelling, oropharyngeal exudate or posterior oropharyngeal erythema. Cardiovascular: Rate and Rhythm: Normal rate and regular rhythm. Pulmonary: Effort: Pulmonary effort is normal. No respiratory distress. Breath sounds: Decreased breath sounds present. No wheezing or rhonchi. Comments: Cough observed during exam Lymphadenopathy: Cervical: No cervical adenopathy. Skin: General: Skin is warm and dry. Neurological: Mental Status: She is alert and oriented to person, place, and time. Diagnoses and all orders for this visit: COPD exacerbation (HCC) (Primary) - Influenza A/B, RSV, and COVID-19 PCR Nasopharyngeal; Future - azithromycin (ZITHROMAX) 250 mg tablet; Take 2 tablets the first day, then 1 tablet daily for 4 days. Orders Placed This Encounter Procedures Influenza A/B, RSV, and COVID-19 PCR Nasopharyngeal Standing Status: Future Standing Expiration Date: 05/02/2024 Order Specific Question: Is the Patient experiencing symptoms consistent with COVID? Answer: Yes Order Specific Question: Date of Symptom Onset Answer: 04/25/2023 Order Specific Question: Reason for testing? Answer: Symptomatic Order Specific Question: Is the patient experiencing any symptoms consistent with COVID (eg. Fever,cough, shortness of breath)? Answer: Yes Order Specific Question: What is the reason for testing? Answer: Symptoms of COVID-19 in high-risk group (Rapid) Assessment/Plan # COPD, in exacerbation --likely 2/2 URI --start albuterol and azithromycin --ED presentation with one or more of the following symptoms: fever uncontrolled with antipyretics,shortness of breath, chest discomfort, uncontrolled n/v/d --f/u with PCP in 3-5 days if symptoms do not improve/worsen Disposition Treatment plan including expectations, follow up, and return precautions discussed with patient/parent, verbalizes understanding. Medication dosage, use, and potential adverse reactions discussed with patient/parent. Advised to follow up with PCP if symptoms do not resolve as expected or sooner if condition worsens. Discussed Signs/symptoms warranting ER evaluation including worsening fever, increased shortness ofbreath, chest pain, severe N/V/D, or any other worrisome symptoms Patient and/or guardian was given an opportunity to ask questions, questions answered. Patient Education Tessalon as prescribed for cough. Avoid irritants such as cigarette smoke, pollen, dust, etc as this will aggravate cough. Suck on cough drops or hard candies to soothe a dry or sore throat. Cough drops won't stop your cough, but they may make your throat feel better. Over the counter loratadine (Claritin) or cetirizine (Zyrtec) to reduce secretions. Mucinex to thin secretions Breathe moist air from a humidifier, a hot shower, or a sink filled with hot water. The heat and moisture can help keep mucus in your airways moist so you can cough it out easily. Use nonprescription medicine, such as acetaminophen, ibuprofen, or aspirin, to relieve fever and body aches. Don't give aspirin to anyone younger than age 20. Rest more than usual. Drink plenty of fluids so that you do not become dehydrated and to keep mucous thin. Use an wxcw-eqw-sursutf cough medicine such as Delsym or Robitussin. (Cough medicines may not be safe for young children or for people who have certain health problems.) Cough suppressants may help you to stop coughing. Expectorants, such as Mucinex, can help you bring up mucus when you cough. Follow up with primary care physician in 1 week, or sooner if symptoms worsen. GO TO ER WITH ANY WORSENING OF SYMPTOMS INCLUDING, BUT NOT LIMITED TO: SUDDEN HIGH FEVER, DIFFICULTY BREATHING OR CATCHING YOUR BREATH, OR SHORTNESS OF BREATH. Radha Santos NP ER SERVICES REPRESENTATIVE documented in this encounter Plan of Treatment Not on file documented as of this encounter Results * Influenza A/B, RSV, and COVID-19 PCR Nasopharyngeal (05/02/2023 11:02 AM CAREER SERVICES REPRESENTATIVE) COVID-19 RNA Negative Negative [facility] Influenza A RNA Negative Negative [facility] Influenza B RNA Negative Negative [facility] RSV RNA Negative Negative [facility] Comment: Interpretive data: Testing performed by [facility]. This test is performed using the MOLI Xpert Xpress CoV-2/Flu/RSV plus assay. This is a multiplex, real-time reverse transcriptase PCR assay intended for the qualitative detection of nucleic acid from SARS-CoV-2, influenza A, influenza B, and respiratory syncytial virus. This assay has been cleared by the [place] Food and Drug administration. The performance characteristics have been verified by the [facility]. ??Results must be considered in the clinical context, and a negative result does not rule out infection. Interpretive Data last revised 2023 Nasopharyngeal 05/02/2023 11 :02 AM CAREER SERVICES REPRESENTATIVE 05/02/2023 2:33 PM CAREER SERVICES REPRESENTATIVE Narrative [facility] - 05/02/2023 3:36 PM CAREER SERVICES REPRESENTATIVE Is the Patient experiencing symptoms consistent with COVID?->Yes Date of Symptom Onset->04/25/23 Reason for testing?->Symptomatic Is the patient experiencing any symptoms consistent with COVID (eg. Fever, cough, shortness of breath)?->Yes What is the reason for testing?->Symptoms of COVID-19 in high-risk group??(Rapid) Radha Santos NP LAB MICROBIOLOGY - GENERAL ORD ERABLES Final Result [facility] [id number] [place] [address] documented in this encounter Visit Diagnoses Diagnosis COPD exacerbation (HCC)- Primary Obstructive chronic bronchitis with exacerbation COPD exacerbation (HCC) Obstructive chronic bronchitis with exacerbation documented in this encounter Additional Health Concerns Infection Onset Date Last Indicated Resolved Time COVID: Suspected 05/02/2023 05/02/2023 05/02/2023 3:37 PM CAREER SERVICES REPRESENTATIVE documented as of this encounter Care Teams Clasp Machine Operator Relationship Specialty Start Date End Date Dat Benito DO [address] [place] [address] PCP - General Internal Medicine 09/28/21 Aft, Kianna Machado MD PhD [address] [place] [address] Surgeon Surgical Oncology 11/22/17 Santiago Gilbert MD [address] [place] [address] Environment Friendly Landscape Designer Gastroenterology 11/22/17 Abbi Ventura MD [address] [place] [address] [address] [place] [address] Medical Oncologist/National Investigative Producer Medical Oncology 12/03/18 Montse Thompson MD [address] [place] [address] [address] [place] [address] Consulting Physician Gynecologic Oncology 12/03/18 Lela Hardy MD PhD [address] [place] [address] [address] [place] [address] Radiation Oncologist Radiation Oncology 12/23/18 Trena Obando MD [address] [place] [address] Consulting Physician Neurology 09/18/21 documented as of this encounter
--- OUTSIDE RECORDS SUMMARY | 2024-04-24 13:35 | XMS_ITS | Encounter Summary ---
Author Organization [facility] Address [address] [place] [address] Phone Care Team Providers Care Library Customer Service Clerk Name Role Phone Aft, Kianna Machado MD PhD Unavailable [phone] Santiago Gilbert MD Unavailable [phone] Abbi Ventura MD Unavailable Montse Thompson MD Unavailable [phone] Lela Hardy MD PhD Unavailable [phone] Trena Obando MD Unavailable Dat Benito DO Primary Care Provider [phone] Encounter Details Date Type Department Care Team (Late st Contact Info) Description 06/13/2023 Telephone [facility] Oncology [address] [place] [phone] Cathy Guthrie Social History Tobacco Use Types Packs/Day Years [...] on file 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 SHUTTLE FITTING SUPERVISOR Gender Identity Not on file Sexual Orientation Not on file documented as of this encounter Miscellaneous Notes * Telephone Encounter - [place] Cathy - 06/13/2023 12:56 PM CST Lvm moved pt to waiting for a call back to confirm appt TLE FITTING SUPERVISOR documented in this encounter Plan of Treatment Not on file documented as of this encounter Visit Diagnoses Not on filedocumented in this encounter Care Teams Library Customer Service Clerk Relationship Specialty Start Date End Date Dat Benito DO [address] [place] [address] PCP - General Internal Medicine 09/28/21 Aft, Kianna Machado MD PhD [address] [place] [address] Surgeon Surgical Oncology 11/22/17 Santiago Gilbert MD [address] [place] [address] Stock Pitcher Gastroenterology 11/22/17 Abbi [facility]ura MD [facility] [address] [place] [address] Medical Oncologist/Dialysis Rn Medical Oncology 12/03/18 Montse Thompson MD [address] [place] [address] Consulting Physician Gynecologic Oncology 12/03/18 Lela Hardy MD PhD [address] [facility] [address] [place] [address] Radiation Oncologist Radiation Oncology 12/23/18 Trena Obando MD [address] [place] [address] Consulting Physician Neurology 09/18/21 documented as of this encounter
--- OUTSIDE RECORDS SUMMARY | 2024-04-24 13:35 | XMS_ITS | Encounter Summary ---
Author Organization [facility] Address [address] [place] [address] Phone Care Team Providers Care Computer Assembler Name Role Phone Aft, Kianna Machado MD PhD Unavailable [phone] Snatiago Gilbert MD Unavailable [phone] Abbi Ventura MD Unavailable Montse Thompson MD Unavailable [phone] Lela Hardy MD PhD Unavailable [phone] Trena Obando MD Unavailable [phone] Dat Benito DO Primary Care Provider [phone] Encounter Details Date Type Department Care Team (Late st Contact Info) Description 07/04/2023 11:00 AM FUND DIRECTOR Office Visit [facility] Oncology [address] [place] [address] Abbi Ventura MD 10 [facility] [address] [place], [place] [id number] 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) (Primary Dx); Malignant 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, estrogen receptor negative (HCC) Social History Tobacco Use Types Packs/Day [...] on file 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 FUND DIRECTOR Gender Identity Not on file Sexual Orientation Not on file documented as of this encounter Last Filed Vital Signs Vital Sign Reading Time Taken Comments Blood Pressure 115/62 07/04/2023 11:19 AM FUND DIRECTOR Pulse 80 07/04/2023 11:19 AM FUND DIRECTOR Temperature 36.6 ??C (97.9 ??F) 07/04/2023 1 1:19 AM FUND DIRECTOR Respiratory Rate 17 07/04/2023 11:1 9 AM FUND DIRECTOR Oxygen Saturation 98% 07/04/2023 11: 19 AM FUND DIRECTOR Inhaled Oxygen Concentration - - Weight 103.1 kg (227 lb 3.2 oz) 024 11:19 AM FUND DIRECTOR Height - - Body Mass Index 33.55 06/27/2023 12:52 PM FUND DIRECTOR documented in this encounter Progress Notes * Abbi Ventura MD - 07/04/2023 11:00 AM CST Images from the original note were not included. Patient Identifying Data: Aleah Gerber is a 67 y.o. female seen in followup today DIAGNOSIS: 1. 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 Diagnosed 10/2017 3. 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 GoGuide My risk showed no mutation in MLH 1 or PMS2 suggesting that the patient does not have Grullon syndrome. 4. Allergic reaction to oxaliplatin during cycle 6 of FOLFOX 5. DYPD genotype normal. 6. DVT/PE diagnosed 05/28/18 7. Stage I Right breast invasive ductal carcinoma - ER negative VA negative Her 2 negative diagnosed 03/2022 TREATMENT [...] ~ 1.4 cm, Grade 3, ER 0, VA 0, HER-2 IHC 0. Partial mastectomy and [...] 04/13/22 showed invasive ductal carcinoma. ER negative VA negative Her 2 negative Bilateral mastectomy 05/22/22 [...] tumor, we elected to observe. Interval History Has swelling left chest wall x 2 weeks. It is painful to touch. Does not remember injury to that area . She however is doing PT and has been doing resistance exercises. Neuropathy in her toes not affecting function but neuropathy is overall better. She however had COVID when she got back from [place] and her whole left side was tingling. The tingling in her left sideof the body resolved. Ocular migraines continue. Continues on ozempic. Continues to have on and offdiarrhea based on what she eats. Review of Systems Review of systems positive for symptoms as per interval history. All other review of systems negative. Objective Vitals: Vitals BP 115/62 (BP Location: Right arm) Pulse 80 Temp 36.6 ??C (97.9 ??F) (Oral) Resp 17 Wt 103.1 kg (227 lb 3.2 oz) LMP (LMP Unknown) SpO2 98% BMI 33.55 kg/m?? PERFORMANCE STATUS: ECOG 1 SKIN: Normal [...] There is no cyanosis, clubbing nor edema. Left arm slightly larger than right NEUROLOGICAL: AAOx3. Power is 5/5 in all extremities. Detailed sensory exam not done. LYMPH NODES: The patient has no palpable cervical, supraclavicular, submandibular adenopathy. BREAST: s/p bilateral mastectomy. No evidence of cancer recurrence in chest wall. She however has a10 x 15 cm fluctuant area that is tender. Lab/Radiology/Diagnostic Review: Hematology Lab History Latest Ref Rng & Units 10/25/2022 15:04 01/24/2023 13:08 04/11/2023 12:52 07/04/2023 10:10 Labs - Hematology WBC 3.8 - 9.9 K/cumm 9.2 9.7 7.1 7.7 Total Hb, POC 11.9 - 15.5 g/dL 12.5 11.6 11.9 11.7 Hct 35.6 - 45.5 % 38.7 36.1 37.4 36.4 Plt 150 - 400 K/cumm 174 189 176 171 Neutrophil abs 1.5 - 6.5 K/cumm 6.6 7.2 4.8 5.3 Lymphocytes, abs 0.8 - 3.3 K/cumm 1.6 1.6 1.5 1.5 Lab Results Component Value Date SODIUM 137 07/04/2023 POTASSIUM 4.3 07/04/2023 CO2 25 07/04/2023 BUNSER 27 (H) 07/04/2023 GLUCOSE 160 07/04/2023 CREATININE 1.51 (H) 07/04/2023 CALCIUM 9.0 07/04/2023 CHLORIDE 106 07/04/2023 ALBUMIN 4.1 07/04/2023 AST 17 07/04/2023 ALT 8 07/04/2023 ALKPHOS 98 07/04/2023 BILITOT 0.3 07/04/2023 PROT 7.2 07/04/2023 ANIONGAP 6 07/04/2023 Tumor Marker History Latest Ref Rng & Units 10/25/2022 15:04 01/24/2023 13:08 04/11/2023 12:52 Tumor Markers CEA <=5.0 ng/mL 1.0 1.5 1.4 CA 125 ag 0.0 - 38.1 units/mL 8.0 7.4 MRI Abdomen MRCP W WO Contrast Narrative: EXAMINATION: 1. MAGNETIC RESONANCE IMAGING OF THE [...] Left breast implant. No suspicious osseous lesions. Impression: No evidence of primary malignancy or metastatic disease in the abdomen. Dictated by: Lily Rashid M.D. The radiology attending physician has personally reviewed this study, and had reviewed and/or edited this written report and agrees with it. Electronically signed by: Nicholas Olmos M.D. Recent labs, radiology and pathology reviewed in [facility] ASSESSMENT: Stage I [id number] right breast cancer -ER negative VA negative Her 2 negative- Mammaprint could not be done due to insufficient tumor. No evidence of cancer recurrence T4bN0 disease, Stage IIC colon adenocarcinoma- no evidence of cancer recurrence T2N0, Stage IIA triple negative left breast cancer - no evidence of cancer recurrence. I think the fluctuant left chest wall swelling is possibly hematoma. She may have accidentally hit her chest wall during resistance exercises. I am referring her to breast surgeon to consider aspiration of the fluid and send it for testing. If the aspirate is clear, then she could be having lymphedema and we will refer her to lymphedema clinic. Silvana panel is positive for BRCA2 mutation, and VUS in BRIP1 and NBN: Status post bilateral oophorectomy, bilateral mastectomy. Her sister had pancreatic cancer. F/u Dr. Fofana. She is also being followed by Dr. Thompson to screen for primary peritoneal carcinomatosis Depression/anxiety: f/u Psychology and PCP CIPN- at grade 1 level. PLAN: Continued observation from cancer standpoint F/u breast surgeon as above ROV in 6 months with CEA and Ca 125 to screen for primary peritoneal carcinomatosis F/u Dr. Gilbert, her local assistant director of admissions, colonoscopy completed 04/09/2022 and repeat in [address] CAP negative we will stop ordering routine scans as she is 5 yrs out from colon cancer diagnosis. Aleah Gerber will follow up as directed above, she was encouraged to call in the interim with questions or concerns. We will continue to monitor and review for side effects from treatment. Abbi Ventura MD wooden shade hardware installer Division of Oncology Section of Medical Oncology [facility] Cytology Technologist completed by using WIB Direct speaking software, therefore, transcriptionvariances may occur. DIRECTOR documented in this encounter Plan of Treatment Not on file documented as of this encounter Results * (ABNORMAL) Comprehensive metabolic panel (02/05/2024 3:00 PM CDT) Sodium 139 135 - 145 mmol/L Comment:Testing performed by : [facility], [address] [place] [address] Potassium, pl 4.0 3.3 - 4.9 mmol/L [facility] Chloride 109 97 - 110 mmol/L [facility] CO2 24 22 - 32 mmol/L [facility] Anion gap 6 2 - 15 mmol/L [facility] BUN 24 6 - 25 mg/dL [facility] Creatinine 1.69(H) 0.60 - 1.10 mg/dL [facility] Glucose 105 70 - 199 mg/dL [facility] Comment: Interpretive Data Fasting glucose >/= [...] 2022. Calcium 9.1 8.5 - 10.3 mg/dL [facility] [place] Bilirubin, total 0.4 0.1 - 1.2 mg/dL [facility] Protein, pl 7.0 6.5 - 8.5 g/dL [facility] Albumin 4.5 3.5 - 5.0 g/dL [facility] Alk phos 72 40 - 130 Units/L [facility] ALT 11 7 - 45 Units/L [facility] AST 18 10 - 45 Units/L [facility] Blood 02/05/2024 3:00 PM CDT 02/05/2024 3:00 PM CDT Abbi Ventura MD LAB BLOOD ORDERABLES Final Resul t Performing Organization Address [facility] de Phone Number [facility] [place] [address] * CEA (02/05/2024 3:00 PM CDT) CEA [...] ORDERABLES Final Resul t Performing Organization Address City/[facility]/ZIP Co de Phone Number [facility] [address] * CA 125 (02/05/2024 3:00 PM CDT) CA 125 ag 8.0 0.0 - 38.1 units/mL Comment: Interpretive Data The Bo CA 125 assay procedure was used. Results from different manufacturers or methods may not be comparable. Serial testing should be performed using the same method. Blood 02/05/2024 3:00 PM CDT 02/05/2024 7:10 PM CDT Abbi Ventura MD LAB BLOOD ORDERABLES Final Resul t [facility] [place] [address] * (ABNORMAL) CBC with auto differential (02/05/2024 3:00 PM CDT) [facility] WBC 9.0 3.8 - 9.9 K/cumm Comment:Testing performed by : [address] [address] Hgb 11.1(L) 11.9 - 15.5 g/dL [facility] Comment:Testing performed by : [address] [address] Hct 35.0(L) 35.6 - 45.5 % [facility] Comment:Testing performed by : [address] [address] Plt 179 150 - 400 K/cumm [facility] Comment:Testing performed by : [address] [address] MPV 9.6 9.1 - 12.3 fL [facility] RBC 3.85(L) 3.90 - 5.20 M/cumm [facility] MCV 90.9 81.3 - 96.4 fL [facility] MCH 28.8 27.1 - 33.3 pg [facility] MCHC 31.7(L) 32.3 - 35.7 g/dL [facility] RDW CV 13.6 11.1 - 14.9 % [facility] RDW SD 45.3 35.7 - 48.1 fL [facility] NRBC abs 0.00 0.00 - 0.01 K/cumm [facility] Blood 02/05/2024 3:00 PM CDT 02/05/2024 3:00 PM CDT us Abbi Ventura MD LAB BLOOD ORDERABLES Final Resul t [facility] Department [place] [address] documented in this encounter Visit Diagnoses Diagnosis 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)- Primary Malignant neoplasm 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, estrogen receptor negative (HCC) documented in this encounter Orders Appointment Requests Count Last Ordered Date Fi rst Ordered Date ONCBCN CLINIC APPOINTMENT REQUEST 2 024 07/04/2023 ONCBCN LAB APPOINTMENT 1 02/05/2024 documented in this encounter Care Teams Computer Assembler Relationship Specialty Start Date End Date Dat Benito DO [address] [place] [address] PCP - General Internal Medicine 09/28/21 Aft, Kianna Machado MD PhD [address] [place] [address] Surgeon Surgical Oncology 11/22/17 Santiago Gilbert MD [address] [place] [address] [facility] Gastroenterology 11/22/17 Abbi Ventura MD [facility] [address] [address] [place] [address] Medical Oncologist/Sewer Contractor Medical Oncology 12/03/18 Montse Thompson MD [facility] [address] [place] [address] Consulting Physician Gynecologic Oncology 12/03/18 Lela Hardy MD PhD [address] [place] [address] Radiation Oncologist Radiation Oncology 12/23/18 Trena Obando MD [address] [place] [address] Consulting Physician Neurology 09/18/21 documented as of this encounter
--- OUTSIDE RECORDS SUMMARY | 2024-04-24 13:35 | XMS_ITS | Encounter Summary ---
Author Organization [facility] Healthcare Address [address] [place] [address] Care Team Providers Care Extractor Machine Operator Name Role Phone Aft, Kianna Machado MD PhD Unavailable [phone] Santiago Gilbert MD Unavailable [phone] Abbi Ventura MD Unavailable Montse Thompson MD Unavailable [phone] Lela Hardy MD PhD Unavailable [phone] Trena Obando MD Unavailable [phone] Dat Benito DO Primary Care Provider [phone] Encounter Details Date Type Department Care Team (Late st Contact Info) Description 08/01/2023 Telephone [facility] Radiology [address] [address] Sayra Ariza RN Social History Tobacco Use Types Packs/Day [...] on file 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 Gender Identity Not on file Sexual Orientation Not on file documented as of this encounter Miscellaneous Notes * Telephone Encounter - Sayra Ariza RN - 08/01/2023 3:12 PM CDT Preprocedure Phone Call Procedure Time Verified: Yes Arrival Time Verified: Yes Procedure Location Verified: Yes Medical History Reviewed: Yes NPO Status Reinforced: No (Pt will be NPO just in case sedation is needed) Ride and Caregiver Arranged: No (Driving self but can get a ride if sedation is used) Patient Knows to Bring Current Medications: Yes Patient Knows to Bring CPAP: No (doesn't use) Is Patient on Home Ventilator?: No Is Patient on Blood Thinners?: No Discharge Planning Living Arrangements: Spouse/significant other Support Systems: Spouse/significant other Type of Residence: Private residence Patient expects to be discharged to:: Private residence documented in this encounter Plan of Treatment Not on file documented as of this encounter Visit Diagnoses Not on filedocumented in this encounter Care Teams Extractor Machine Operator Relationship Specialty Start Date End Date Dat Benito DO [address] [place] [address] PCP - General Internal Medicine 09/28/21 Aft, Kianna Machado MD PhD [address] [place] [address] Surgeon Surgical Oncology 11/22/17 Santiago Gilbert MD [address] [place] [address] Sas Administrator Gastroenterology 11/22/17 Abbi Ventura MD [address] [facility] [address] [place] [address] Medical Oncologist/First Aid Instructor Medical Oncology 12/03/18 Montse Thompson MD [address] [facility] [address] [place] [address] Consulting Physician Gynecologic Oncology 12/03/18 Lela Hardy MD PhD [address] [facility] [address] [place], [place] [id number] Radiation Oncologist Radiation Oncology 12/23/18 Trena Obando MD [address] [place], [place] [id number] Consulting Physician Neurology 09/18/21 documented as of this encounter
--- OUTSIDE RECORDS SUMMARY | 2024-04-24 13:35 | XMS_ITS | Encounter Summary ---
Author Organization [facility] Healthcare Address [address] [place] [address] Care Team Providers Care Drying Room Operator Name Role Phone Aft, Kianna Machado MD PhD Unavailable Santiago Gilbert MD Unavailable [phone] Abbi Ventura MD Unavailable Montse Thompson MD Unavailable [phone] Lela Hardy MD PhD Unavailable [phone] Trena Obando MD Unavailable [phone] Dat Benito DO Primary Care Provider [phone] Encounter Details Date Type Department Care Team (Latest Contact Info) Description 05/02/2023 11:02 AM VENEER STAPLER - 05/02/2023 11:59 PM [facility] Hospital Encounter [address] [id number] COPD exacerbation (HCC) Discharge Disposition: Discharge to home or [...] on file 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 VENEER STAPLER Gender Identity Not on file Sexual Orientation [...] for anxiety 11/07/2017 amLODIPine (NORVASC) 5 mg tabletIndications: hypertension Take 1 tablet (5 mg total) by mouth every morning 08/31/2021 diphenhydrAMINE (BENADRYL) 25 mg capsuleIndications :allergies Take 1 tablet/capsule (25 mg total) by mouth as needed docusate sodium (COLACE) 100 mg capsuleIndications :constipation Take 1 capsule (100 mg total) by mouth 2 (two) times a day 30 capsule 05/23/[address] (CYMBALTA) 60 mg capsuleIndications :Neuropathic Pain Take 1 capsule (60 mg total) by mouth nightly 05/07/2020 fluticasone propion-salmeteroL (ADVAIR DISKUS) 500-50 mcg/dose diskus inhaler Inhale 1 puff 2 (two) times a day Rinse mouth with water after use. Do not swallow. 60 each 02/19/2023 fluticasone propionate (FLONASE) 50 mcg/actuation nasal sprayIndications:A llergic Rhinitis Administer 1 spray into each nostril as needed 10/18/2021 levothyroxine (SYNTHROID) 75 mcg tabletIndications: hypothyroidism Take 1 tablet (75 mcg total) by mouth every morning 01/26/2022 nortriptyline (PAMELOR) 10 mg capsuleIndications :Postherpetic Neuralgia,and sleep Take 1 capsule (10 mg total) by mouth nightly 09/13/2021 omeprazole (PriLOSEC) 20 mg capsuleIndications :Stress Ulcer Prophylaxis Take 1 capsule (20 mg total) by mouth daily as needed 11/07/2021 ondansetron (ZOFRAN) 4 mg tablet Take 1 tablet (4 mg total) by mouth every 8 (eight) hours as needed for vomiting or nausea 02/22/2021 Ozempic 1 mg/dose (4 mg/3 mL) pen injector injection 08/24/2022 propranolol LA (INDERAL LA) 60 mg 24 hr capsuleIndications :Essential Tremor Take 1 capsule (60 mg total) by mouth 2 (two) times a day 10/26/2019 rosuvastatin (CRESTOR) 10 mg tablet Take 1 tablet (10 mg total) by mouth daily topiramate (TOPAMAX) 25 mg tabletIndications: pain Take 1 tablet (25 mg total) by mouth 3 (three) times a day 09/12/2021 traMADoL (ULTRAM) 50 mg tablet Take 1 tablet (50 mg total) by mouth every 8 (eight) hours as needed for pain 01/11/2021 azithromycin (ZITHROMAX) 250 mg tabletIndications: COPD exacerbation (HCC) Take 2 tablets the first day, then 1 tablet daily for 4 days. 6 tablet 05/02/2023 4 documented as of this encounter Discharge Disposition Disposition Code Departure Means Destination Discharge to home or self care documented in this encounter Miscellaneous Notes * Result Encounter Note - Manisha Kaplan MA - 05/02/2023 4:33 PM CST Viewed on Mychart ER STAPLER * Result Encounter Note - Radha Santos NP - 05/02/2023 3:41 PM CST Please notify patient of negative COVID-19/RSV/FLU test. Patient should rest, stay hydrated, and take OTC medications as needed. Monitor symptoms and if they worsen follow up with primary care doctoror ER if needed. ER STAPLER documented in this encounter Plan of Treatment Not on file documented as of this encounter Procedures Procedure Name Priority Date/Time Associated Diagnosis Comments INFLUENZA A/B, RSV, AND COVID-19 PCR Routine 05/02/2023 11:02 AM VENEER STAPLER COPD exacerbation (HCC) documented in this encounter Results * Influenza A/B, RSV, and COVID-19 PCR Nasopharyngeal (05/02/2023 11:02 AM VENEER STAPLER) COVID-19 RNA Negative Negative [facility] Influenza A RNA Negative Negative [facility] Influenza B RNA Negative Negative [facility] RSV RNA Negative Negative [facility] Comment: Interpretive data: Testing performed by [facility]. This test is performed using the LATTO Xpert Xpress CoV-2/Flu/RSV plus assay. This is a multiplex, real-time reverse transcriptase PCR assay intended for the qualitative detection of nucleic acid from SARS-CoV-2, influenza A, influenza B, and respiratory syncytial virus. This assay has been cleared by the [place] Food and Drug administration. The performance characteristics have been verified by the [facility]. ??Results must be considered in the clinical context, and a negative result does not rule out infection. Interpretive Data last revised 2023 Nasopharyngeal 05/02/2023 11 :02 AM VENEER STAPLER 05/02/2023 2:33 PM VENEER STAPLER Narrative [facility] - 05/02/2023 3:36 PM VENEER STAPLER Is the Patient experiencing symptoms consistent with COVID?->Yes Date of Symptom Onset->04/25/23 Reason for testing?->Symptomatic Is the patient experiencing any symptoms consistent with COVID (eg. Fever, cough, shortness of breath)?->Yes What is the reason for testing?->Symptoms of COVID-19 in high-risk group??(Rapid) Radha Santos EDUCATIONAL SPEECH LANGUAGE CLINICIAN LAB MICROBIOLOGY - GENERAL ORD ERABLES Final Result [facility] [address] Department [place] [address] documented in this encounter Visit Diagnoses Diagnosis COPD exacerbation (HCC) Obstructive chronic bronchitis with exacerbation documented in this encounter Additional Health Concerns Infection Onset Date Last Indicated Resolved Time COVID: Suspected 05/02/2023 05/02/2023 05/02/2023 3:37 PM VENEER STAPLER documented as of this encounter Care Teams Drying Room Operator Relationship Specialty Start Date End Date Dat Benito DO [address] [place] [address] PCP - General Internal Medicine 09/28/21 Aft, Kianna Machado MD PhD [address] [place] [address] Surgeon Surgical Oncology 11/22/17 Santiago Gilbert MD [address] [place] [address] Manager School Gastroenterology 11/22/17 Abbi Ventura MD [address] [place] [address] [address] [place] [address] Medical Oncologist/Equipment Detailer Medical Oncology 12/03/18 Montse Thompson MD [address] [place] [address] [address] [place] [address] Consulting Physician Gynecologic Oncology 12/03/18 Lela Hardy MD PhD [address] [place] [address] [address] [place] [address] Radiation Oncologist Radiation Oncology 12/23/18 Trena Obando MD [address] [place] [address] Consulting Physician Neurology 09/18/21 documented as of this encounter
--- OUTSIDE RECORDS SUMMARY | 2024-04-24 13:35 | XMS_ITS | Encounter Summary ---
Author Organization [facility] Healthcare Address [address] [place] [address] Care Team Providers Care Recovery Operator Helper Name Role Phone Aft, Kianna Machado MD PhD Unavailable [phone] Santiago Gilbert MD Unavailable [phone] Abbi Ventura MD Unavailable Montse Thompson MD Unavailable [phone] Lela Hardy MD PhD Unavailable [phone] Trena Obando MD Unavailable [phone] Dat Benito DO Primary Care Provider [phone] Encounter Details Date Type Department Care Team (Late st Contact Info) Description 07/29/2023 Telephone [facility] Radiology [address] [place] [address] Emma Cano, RN Social History Tobacco Use Types Packs/Day [...] on file 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 I have a small amount of yellow drainage on mygauze. C/o pain at insertion site. Thinks trouble started 07/27/23. Not sure if she is having fever, report diaphoresis the other night, but has not taken temp (denies body aches). Dereje change in amount of drainage. Remains minimal output. Has appt for Saturday, moved to Saturday at 0800. documented in this encounter Plan of Treatment Not on file documented as of this encounter Visit Diagnoses Not on filedocumented in this encounter Care Teams Recovery Operator Helper Relationship Specialty Start Date End Date Dat Benito DO [address] [place] [address] PCP - General Internal Medicine 09/28/21 Aft, Kianna Machado MD PhD [address] [place] [address] Surgeon Surgical Oncology 11/22/17 Santiago Gilbert MD [address] [place] [address] Incident Response Lead Gastroenterology 11/22/17 Abbi Ventura MD [address] [place] [address] [address] [place] [address] Medical Oncologist/Incinerator Attendant Medical Oncology 12/03/18 Montse Thompson MD [address] [facility] [address] [place], [place] [id number] Consulting Physician Gynecologic Oncology 12/03/18 Lela Hardy MD PhD [address] [place] [address] [address] [place], [place] [id number] Radiation Oncologist Radiation Oncology 12/23/18 Trena Obando MD [address] [place], [place] [address] Consulting Physician Neurology 09/18/21 documented as of this encounter
--- OUTSIDE RECORDS SUMMARY | 2024-04-24 13:35 | XMS_ITS | Encounter Summary ---
Author Organization [facility] Address [address] [place] [address] Phone Care Team Providers Care Trimmer Operator Name Role Phone Aft, Kianna Machado MD PhD Unavailable [phone] Santiago Gilbert MD Unavailable [phone] Abbi Ventura MD Unavailable Montse Thompson MD Unavailable [phone] Lela Hardy MD PhD Unavailable [phone] Trena Obando MD Unavailable [phone] Dat Benito DO Primary Care Provider [phone] Encounter Details Date Type Department Care Team (Late st Contact Info) Description 10/08/2023 Telephone [facility] Oncology [address] [place] [id number] Rosa Alcantar, [facility] Social History Tobacco Use Types Packs/Day Years [...] on file 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 She knows to call with questions or concerns documented in this encounter Plan of Treatment Not on file documented as of this encounter Visit Diagnoses Not on filedocumented in this encounter Care Teams Trimmer Operator Relationship Specialty Start Date End Date Dat Benito DO [address] [place] [address] PCP - General Internal Medicine 09/28/21 Aft, Kianna Machado MD PhD [address] [place] [address] Surgeon Surgical Oncology 11/22/17 Santiago Gilbert MD [address] [place] [address] Boiler Installer Gastroenterology 11/22/17 Abbi Ventura MD [address] [place] [address] Medical Oncologist/Assistant Media Buyer Medical Oncology 12/03/18 Montse Thompson MD [address] [place] [address] Consulting Physician Gynecologic Oncology 12/03/18 Lela Hardy MD PhD [address] [place] [address] Radiation Oncologist Radiation Oncology 12/23/18 Trena Obando MD [address] [place] [address] Consulting Physician Neurology 09/18/21 documented as of this encounter
--- OUTSIDE RECORDS SUMMARY | 2024-04-24 13:35 | XMS_ITS | Encounter Summary ---
Author Organization [facility] Healthcare Address [address] [place] [address] Care Team Providers Care Lip Cutter Name Role Phone Aft, Kianna Machado MD PhD Unavailable [phone] Santiago Gilbert MD Unavailable [phone] Abbi Ventura MD Unavailable Montse Thompson MD Unavailable [phone] Lela Hardy MD PhD Unavailable [phone] Trena Obando MD Unavailable [phone] Dat Benito DO Primary Care Provider [phone] Encounter Details Date Type Department Care Team (Late st Contact Info) Description 08/01/2023 Orders Only [facility] Radiology [address] [address] Gilberto Headley RN Social History Tobacco Use Types Packs/Day [...] on file 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 Gender Identity Not on file Sexual Orientation Not on file documented as of this encounter Plan of Treatment Not on file documented as of this encounter Visit Diagnoses Not on filedocumented in this encounter Care Teams Lip Cutter Relationship Specialty Start Date End Date Dat Benito DO [address] [place] [address] PCP - General Internal Medicine 09/28/21 Aft, Kianna Machado MD PhD [address] [place] [address] Surgeon Surgical Oncology 11/22/17 Santiago Gilbert MD [address] [place] [address] Gambling Box Person Gastroenterology 11/22/17 Abbi Ventura MD [address] [place] [address] [address] [place] [address] Medical Oncologist/Board Runner Medical Oncology 12/03/18 Montse Thompson MD [address] [place] [address] [address] [place] [address] Consulting Physician Gynecologic Oncology 12/03/18 Lela Hardy MD PhD [address] [place] [address] [address] [place] [address] Radiation Oncologist Radiation Oncology 12/23/18 Trena Obando MD [address] [place] [address] Consulting Physician Neurology 09/18/21 documented as of this encounter
--- OUTSIDE RECORDS SUMMARY | 2024-04-24 13:35 | XMS_ITS | Encounter Summary ---
Author Organization [facility] Healthcare Address [address] [place] [address] Care Team Providers Care Applied Research Director Name Role Phone Aft, Kianna Machado MD PhD Unavailable [phone] Santiago Gilbert MD Unavailable [phone] Abbi Ventura MD Unavailable Montse Thompson MD Unavailable [phone] Lela Hardy MD PhD Unavailable [phone] Trena Obando MD Unavailable [phone] Dat Benito DO Primary Care Provider [phone] Encounter Details Date Type Department Care Team (Late st Contact Info) Description 07/15/2023 Telephone Radiology [address] [place] [address] Corwin Yuen MD [address] [facility] [address] [place] [address] Social History Tobacco Use Types [...] you are drinking? Patient does not drink 06/22/202 3 Q3: How often do you have si x or more drinks on one occasion? 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 Appropriate for drainage. Will schedule as outpatient documented in this encounter Plan of Treatment Not on file documented as of this encounter Visit Diagnoses Not on filedocumented in this encounter Care Teams Applied Research Director Relationship Specialty Start Date End Date Dat Benito DO [address] [place] [address] PCP - General Internal Medicine 09/28/21 Aft, Kianna Machado MD PhD [address] [place] [address] Surgeon Surgical Oncology 11/22/17 Santiago Gilbert MD [address] [place] [address] Shell Sieve Operator Gastroenterology 11/22/17 Abbi Ventura MD [address] [place], [place] [address] Medical Oncologist/Stick Puller Medical Oncology 12/03/18 Montse Thompson MD [address] [place], [place] [address] Consulting Physician Gynecologic Oncology 12/03/18 Lela Hardy MD PhD [address] [facility] [address] [place] [address] Radiation Oncologist Radiation Oncology 12/23/18 Trena Obando MD [address] [place] [address] Consulting Physician Neurology 09/18/21 documented as of this encounter
--- OUTSIDE RECORDS SUMMARY | 2024-04-24 13:35 | XMS_ITS | Encounter Summary ---
Author Organization [facility] Address [address] [place] [address] Phone Care Team Providers Care Gang Supervisor Name Role Phone Aft, Kianna Machado MD PhD Unavailable [phone] Santiago Gilbert MD Unavailable [phone] Abbi Ventura MD Unavailable Montse Thompson MD Unavailable [phone] Lela Hardy MD PhD Unavailable [phone] Trena Obando MD Unavailable [phone] Dat Benito DO Primary Care Provider [phone] Encounter Details Date Type Department Care Team (Late st Contact Info) Description 06/21/[address] [address] Cat Ivan Social History Tobacco Use Types Packs/Day Years [...] on file 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 Asked that the patient call us to confirm OLOGY PROFESSOR documented in this encounter Plan of Treatment Not on file documented as of this encounter Visit Diagnoses Not on filedocumented in this encounter Care Teams Gang Supervisor Relationship Specialty Start Date End Date Dat Benito DO [address] [place] [address] PCP - General Internal Medicine 09/28/21 Aft, Kianna Machado MD PhD [address] [place] [address] Surgeon Surgical Oncology 11/22/17 Santiago Gilbert MD [address] [place] [address] Sales Development Consultant Gastroenterology 11/22/17 Abbi Ventura MD [address] [place] [address] Medical Oncologist/It Consulting Manager Medical Oncology 12/03/18 Montse Thompson MD [address] [place], [place] [address] Consulting Physician Gynecologic Oncology 12/03/18 Lela Hardy MD PhD [address] [facility] [address] [place] [address] Radiation Oncologist Radiation Oncology 12/23/18 Trena Obando MD [address] [place] [address] Consulting Physician Neurology 09/18/21 documented as of this encounter
--- OUTSIDE RECORDS SUMMARY | 2024-04-24 13:35 | XMS_ITS | Encounter Summary ---
Author Organization [facility] Address [address] [place] [address] Phone Care Team Providers Care Recruiting And Selection Consultant Name Role Phone Aft, Kianna Machado MD PhD Unavailable [phone] Santiago Gilbert MD Unavailable [phone] Abbi Ventura MD Unavailable Montse Thompson MD Unavailable [phone] Lela Hardy MD PhD Unavailable [phone] Trena Obando MD Unavailable [phone] Dat Benito DO Primary Care Provider [phone] Encounter Details Date Type Department Care Team (Late st Contact Info) Description 06/27/2023 1:00 PM BURGLARY 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 Office Visit [facility] [address] [place] [address] Medical Office [address] [place] [address] Roe Fofana MD [address] [place] [address] BRCA2 gene mutation positive in female (Primary Dx); Family history of pancreatic cancer; Medication side effect Social History Tobacco Use Types Packs/Day Years [...] on file 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 BURGLARY 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 Gender Identity Not on file Sexual Orientation Not on file documented as of this encounter Last Filed Vital Signs Vital Sign Reading Time Taken Comments Blood Pressure 138/75 06/27/2023 12:52 PM BURGLARY 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 Pulse 82 06/27/2023 12:52 PM BURGLARY 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 Temperature - - Respiratory Rate - - Oxygen Saturation - - Inhaled Oxygen Concentration - - Weight 102.2 kg (225 lb 3.2 oz) 024 12:52 PM BURGLARY 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 Height 175.3 cm (5' 9 ) 06/27/2023 12:5 2 PM BURGLARY 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 Body Mass Index 33.26 06/27/2023 12:52 PM BURGLARY 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 documented in this encounter Progress Notes * Roe Fofana MD - 06/27/2023 1:00 PM CST Images from the original note were not included. [facility] Gilberto Callejas Department of Medicine Division of Gastroenterology Interventional & Pancreaticobiliary Endoscopy Program 06/27/[address] Benito and Abbi, Thank you for allowing me the opportunity to see your patient, Aleah Gerber (: 1955) in the [facility] at [facility]. Below, please see my complete clinic note with the assessment and plan noted at the bottom. Please do not hesitate to contact me at [phone] should you have any questions regarding this patient's care. Sincerely, Roe Fofana MD load out worker [facility] Chief Complaint: Patient referred for continued pancreatic cancer screening in the setting of a germline BRCA2 mutation and family history of pancreatic cancer in her sister. HPI 67 y.o. with a PMH of colon cancer s/p hemicolectomy (2017), breast cancer (11/2017, 03/2022) s/p bilateral mastectomy and R sentinel lymph node bx, depression, HTN, diabetes, and fibromyalgia, here for continued pancreatic cancer screening in the setting of a germline BRCA2 mutation and family history of pancreatic cancer in her sister. Family history Sister- pancreatic cancer (40's) Father- prostate cancer (67) 2 sisters and 3 brothers without genetic testing. Daughter negative for BRCA2. ROV 10/25/2022: 06/25/22 CT C/A/P IMPRESSION: 1. No evidence of metastatic or recurrent disease in the chest, abdomen or pelvis. 2. Postsurgical changes of bilateral mastectomy, with a large fluid collection in the left chest wall likely a seroma. Today she reports feeling well. From a GI perspective denies fever, chills, vomiting, dysphagia, weight loss, heartburn, jaundice, dark urine, and bloody stools. Notes nausea, decreased appetite, andweight loss with use of Ozempic. Notes tenderness to touch in her lower pelvic region, however denies abdominal pain. Reports hard to loose stools, has trialed fiber in the past. ROV 06/27/2023 Today, she reports she has been feeling well. Her PCP started her on Ozempic for her diabetes approximately 8 months ago, and she does have some associated GI side effects with it, mainly bloating, nausea, and diarrhea which are worse the few days after her shot day. She has been unable to toleratethe dose increase to 0.5mg weekly, so she has remained on 0.25mg weekly. These symptoms started with the Ozempic initiation, and have not worsened or changed. She denies any other GI symptoms including abdominal pain, worsening nausea, vomiting, unexplained weight loss, jaundice, or dark/bloody stools. MRCP 06/27/2023 IMPRESSION: No evidence of primary malignancy or metastatic disease in the abdomen. ROS CONSTITUTIONAL: as above EYES: no complaints RESPIRATORY: no complaints CARDIOVASCULAR: no complaints GASTROINTESTINAL: See HPI GENITOURINARY: no complaints MUSCULOSKELETAL: no complaints NEUROLOGICAL: no complaints All other Review of Systems are negative. PMH Past Medical History: Diagnosis Date Anemia Anxiety Asthma At risk for sleep apnea Per assessment, STOP BANG=3. Pt reports her PCP wants to do a Sleep Study in the near future. BRCA2 gene mutation positive in female 10/20/2018 BRCA2 positive Breast cancer (HCC) 2018 left breast cancer Breast cancer (HCC) 2018 Chronic kidney disease Colon cancer (CMS/HCC) (HCC) Distal transverse Colon CA s/p Left hemicolectomy 12/27/2017; No chemo and no radiation Colon cancer (CMS/HCC) (HCC) 2018 Colon polyps COPD (chronic obstructive pulmonary disease) (HCC) Depression DVT (deep vein thrombosis) in 05/2017 with multiple Pulmonary Emboli DVT (deep venous thrombosis) (CMS/HCC) (HCC) 05/2018 RLE DVT Former smoker Quit 2016 History of chemotherapy History of ileus 12/2017 History of radiation therapy Hypercholesteremia Hypertension Leg swelling Right lower extremity--known DVT Lower extremity edema Memory loss Some short-term memory loss Mucositis Obesity VIOLETTE (obstructive sleep apnea) 11/12/2019 doesn't use cpap Personal history of other medical treatment Hepatic steatosis Personal history of other medical treatment History of BRCA2 mutation SOB (shortness of breath) SOB (shortness of breath) 2018 2/2 chemotherapy Thyroid disease TIA (transient ischemic attack) 2007 Type 2 diabetes mellitus (HCC) Vascular disease Past Surgical History: Procedure Laterality Date BLADDER SUSPENSION 2010 BREAST BIOPSY Left 11/12/2017 BREAST BIOPSY Right 2008 Benign BREAST BIOPSY Right 04/13/2022 BREAST BIOPSY Left 11/11/2018 re-excision BREAST BIOPSY 01/14/2018 BREAST LUMPECTOMY 2018 COLON SURGERY 2018 COLONOSCOPY 2018 HEMICOLECTOMY Left 12/27/2017 Laparoscopic left hemicolectomy HYSTERECTOMY 2018 or 2020 HYSTERECTOMY W/ BILATERAL SALPINGOOPHORECTOMY Bilateral 02/13/2019 INCONTINENCE SURGERY 2008 INGUINAL HERNIA REPAIR Right 1970 MASTECTOMY, PARTIAL Left 01/14/2018 Biopsy Breast Needle Localization partial mastectomy (L), Biopsy [place] Lymph Node With Lymphoscintigraphy (L), Insertion Port A Cath (R) with ultrasound and fluroscopy PORT REMOVAL 04/09/2019 PORTACATH PLACEMENT 01/2018 right upper chest PORTACATH PLACEMENT Right 2018 TUBAL LIGATION 1992 VAGINAL DELIVERY ALLERGIES Allergies Allergen Reactions Oxaliplatin Swollen tongue Throat swelling Tetanus Vaccines And Toxoid Swelling and Rash Current Outpatient Medications Medication Sig Dispense Refill acetaminophen (TYLENOL) 500 mg tablet Take 1 tablet (500 mg total) by mouth as needed albuterol HFA (PROVENTIL HFA,VENTOLIN HFA,PROAIR HFA) 90 mcg/actuation inhaler Inhale 2 puffs every6 (six) hours as needed for wheezing 1 each 5 ALPRAZolam (XANAX) 0.25 mg tablet Take 1 tablet (0.25 mg total) by mouth 3 (three) times a day as needed for anxiety amLODIPine (NORVASC) 5 mg tablet Take 1 tablet (5 mg total) by mouth every morning diphenhydrAMINE (BENADRYL) 25 mg capsule Take 1 tablet/capsule (25 mg total) by mouth as needed docusate sodium (COLACE) 100 mg capsule Take 1 capsule (100 mg total) by mouth 2 (two) times a day (Patient taking differently: Take 1 capsule (100 mg total) by mouth as needed) [address] (CYMBALTA) 60 mg capsule Take 1 capsule (60 mg total) by mouth nightly fluticasone propion-salmeteroL (ADVAIR DISKUS) 500-50 mcg/dose diskus inhaler Inhale 1 puff 2 (two)times a day Rinse mouth with water after use. Do not swallow. 60 each 0 fluticasone propionate (FLONASE) 50 mcg/actuation nasal spray Administer 1 spray into each nostril as needed levothyroxine (SYNTHROID) 75 mcg tablet Take 1 tablet (75 mcg total) by mouth every morning nortriptyline (PAMELOR) 10 mg capsule Take 1 capsule (10 mg total) by mouth nightly omeprazole (PriLOSEC) 20 mg capsule Take 1 capsule (20 mg total) by mouth daily as needed ondansetron (ZOFRAN) 4 mg tablet Take 1 tablet (4 mg total) by mouth every 8 (eight) hours as needed for vomiting or nausea Ozempic 1 mg/dose (4 mg/3 mL) pen injector injection propranolol LA (INDERAL LA) 60 mg 24 hr capsule Take 1 capsule (60 mg total) by mouth 2 (two) timesa day rosuvastatin (CRESTOR) 10 mg tablet Take 1 tablet (10 mg total) by mouth daily topiramate (TOPAMAX) 25 mg tablet Take 1 tablet (25 mg total) by mouth 3 (three) times a day traMADoL (ULTRAM) 50 mg tablet Take 1 tablet (50 mg total) by mouth every 8 (eight) hours as neededfor pain No current facility-administered medications for this visit. FAMILY HISTORY As noted in HPI. Otherwise no other family history of pancreatic, colorectal, or other GI malignancy. SOCIAL HISTORY Profession: retired Marital Status: Tobacco: reports that she quit smoking about 9 years ago. Her smoking use included cigarettes. She started smoking about 51 years ago. She has a 31.5 pack-year smoking history. She has never used smokeless tobacco. EtOH: denies Illicit: denies PHYSICAL EXAM LMP (LMP Unknown) GENERAL: Well developed well nourished, in no acute distress. HEENT: Normocephalic atraumatic. Sclerae anicteric. Pupils are equal, round, and reactive to light. NECK: Supple without lymphadenopathy or thyromegaly. Trachea midline. LUNGS: Equal chest rise bilaterally. No audible wheezes, rales. CARDIOVASCULAR: Regular. Normal pulse. ABDOMEN: Soft, nondistended, nontender. No hepatosplenomegaly. EXTREMITIES: Noclubbing, cyanosis, edema. SKIN: No rashes or jaundice. RESULTS Chem/LFT Lab History Latest Ref Rng & Units 10/25/2022 15:04 11/23/2022 14:59 01/24/2023 04/11/2023 12:52 Labs-Chem/LFT Sodium 135 - 145 mmol/L 139 140 139 Creatinine 0.60 - 1.10 mg/dL 1.47 1.46 1.41 Bilirubin, total 0.1 - 1.2 mg/dL 0.4 0.5 0.4 AST 10 - 45 Units/L 18 17 18 ALT 7 - 45 Units/L 12 10 11 Alk phos 40 - 130 Units/L 102 97 90 CrCl- Actual Body Weight (Cockcroft-Gault) 64 58.4 62.4 64.5 Details More values are hidden. Newest values shown. Go to activity for more data. Hematology Lab History Latest Ref Rng & Units 07/04/2022 12:41 10/25/2022 15:04 01/24/2023 13:08 04/11/2023 12:52 Labs - Hematology WBC 3.8 - 9.9 K/cumm 7.9 9.2 9.7 7.1 Total Hb, POC 11.9 - 15.5 g/dL 11.8 12.5 11.6 11.9 Hct 35.6 - 45.5 % 37.3 38.7 36.1 37.4 Plt 150 - 400 K/cumm 199 174 189 176 Neutrophil abs 1.5 - 6.5 K/cumm 5.4 6.6 7.2 4.8 Lymphocytes, abs 0.8 - 3.3 K/cumm 1.5 1.6 1.6 1.5 MRCP 06/27/2023 IMPRESSION: No evidence of primary malignancy or metastatic disease in the abdomen. 06/25/22 CT C/A/P IMPRESSION: 1. No evidence of metastatic or recurrent disease in the chest, abdomen or pelvis. 2. Postsurgical changes of bilateral mastectomy, with a large fluid collection in the left chest wall likely a seroma. ASSESSMENT AND PLAN 67 y.o. female with a PMH of colon cancer s/p hemicolectomy (2017), breast cancer (11/2017, 03/2022)s/p bilateral mastectomy and R sentinel lymph node bx, depression, HTN, diabetes, and fibromyalgia,here to discuss pancreatic cancer screening with BRCA2 gene mutation. Patient is noted with a firstdegree relative (sister) with pancreatic cancer in her 40s. BRCA2/Family history of pancreatic cancer: As this patient has a confirmed mutation with family history of pancreatic cancer, we would recommend continued screening for pancreatic cancer. Most recent MRCP on 06/27/2023 with normal pancreas. - Recommend an EUS in 2024. Recommend routine fasting glucose and A1c monitoring with PCP. - Call our office if she were to develop abdominal pain, fever, jaundice, early satiety, unintentional weight loss. 2. Colon Screening: - She is due for colonoscopy in 2024 and would prefer to have that ordered through our clinic. Willschedule colonoscopy at the same time as her EUS. She would prefer SuTab for her prep. 3. Medication Side Effect: discussed that her symptoms are typical with Ozempic's drug class. Symptoms can worsen with larger meals, high carb or high fat meals, or with fast/processed foods. -Recommend reduction of fast/processed foods, focus on lean proteins with fresh vegetables, fruits,and whole grains. Discussed starting with smaller portions, can always go back for an additional portion if still hungry later. -She also plans to discuss this with PCP and see about switching to a different medication as she is having difficulty tolerating even the 0.25mg Ozempic dose. Ms. Gerber was given ample time to ask questions and have them answered. She should follow up at the time of her EUS/Colonoscopy in June 2024 or sooner if needed. I saw and examined the patient and agree with the plan of care as discussed with my Nurse Practitioner, Nayeli Marmolejo FAN MAIL EDITOR. I have reviewed her history, physical and assessement for completion and edited as noted above. documented in this encounter Plan of Treatment Not on file documented as of this encounter Visit Diagnoses Diagnosis BRCA2 gene mutation positive in female- Primary Family history of pancreatic cancer Family history of malignant neoplasm of gastrointestinal tract Medication side effect documented in this encounter Discontinued Medications Medication Sig Discontinue Reason Start Date End Da te azithromycin (ZITHROMAX) 250 mg tabletIndications:COPD exacerbation (HCC) Take 2 tablets the first day, then 1 tablet daily for 4 days. No longer clinically indicated 05/02/2023 06/27/2023 documented as of this encounter Care Teams Recruiting And Selection Consultant Relationship Specialty Start Date End Date Dat Benito DO [address] [place] [address] PCP - General Internal Medicine 09/28/21 Aft, Kianna Machado MD PhD [address] [place] [address] Surgeon Surgical Oncology 11/22/17 Santiago Gilbert MD [address] [place] [address] Recoverer Gastroenterology 11/22/17 Abbi Ventura MD [address] [place] [address] [address] [place] [address] Medical Oncologist/Rn Medical Inpatient Services Medical Oncology 12/03/18 Montse Thompson MD [address] [place] [address] [address] [place] [address] Consulting Physician Gynecologic Oncology 12/03/18 Lela Hardy MD PhD [address] [place] [address] [address] [place] [address] Radiation Oncologist Radiation Oncology 12/23/18 Trena Obando MD [facility] [address] [place] [address] Consulting Physician Neurology 09/18/21 documented as of this encounter
--- OUTSIDE RECORDS SUMMARY | 2024-04-24 13:35 | XMS_ITS | Encounter Summary ---
Author Organization [facility] Healthcare Address [address] [place] [address] Care Team Providers Care Human Resources Operations Specialist Name Role Phone Aft, Kianna Machado MD PhD Unavailable [phone] Santiago Gilbert MD Unavailable [phone] Abbi Ventura MD Unavailable Montse Thompson MD Unavailable Lela Hardy MD PhD Unavailable [phone] Trena Obando MD Unavailable [phone] Dat Benito DO Primary Care Provider [phone] Reason for Referral * Diagnostic Imaging (Routine) - Closed Specialty Diagnoses / Procedures Referred By Contronny t Referred To Contact Radiology Diagnoses Malignant 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, estrogen receptor negative (HCC) Procedures IR Inject Abscess Catheter Ronny Xavier PA [address] [facility] [address] [place] [address] Phone: tel: fax: [address] [phone] Referral ID Status Reason Start Date Expiration Date Visits Re quested Visits Authorized [id number] Closed 07/30/2023 08/28/2024 1 1 * Diagnostic Imaging (Routine) - Closed Specialty Diagnoses / Procedures Referred By Contac t Referred To Contact Radiology Diagnoses Malignant 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, estrogen receptor negative (HCC) Procedures IR Inject Abscess Catheter Shannon Hassan MD [address] [place] [address] Phone: tel: fax: [address] [phone] Referral ID Status Reason Start Date Expiration Date Visits Re quested Visits Authorized [id number] Closed 07/17/2023 08/15/2024 1 1 Reason for Visit * Diagnostic Imaging (Routine) - Closed Specialty Diagnoses / Procedures Referred By Contac t Referred To Contact Radiology Diagnoses Malignant 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, estrogen receptor negative (HCC) Procedures IR Inject Abscess Catheter Shannon Hassan MD [address] [place] [address] Phone: tel: fax: [address] [address] Referral ID Status Reason Start Date Expiration Date Visits Re quested Visits Authorized [id number] Closed 07/17/2023 08/15/2024 1 1 Encounter Details Date Type Department Care Team (Late st Contact Info) Description 07/30/2023 7:10 AM CDT - 07/30/2023 11:59 PM CDT Hospital Encounter [facility] [address] [place] [address] Ronny Xavier PA [address] [facility] [address] [place] [address] Malignant neoplasm of upper-inner quadrant of left [...] on file 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 Gender Identity Not on file Sexual Orientation Not on file documented as of this encounter Last Filed Vital Signs Vital Sign Reading Time Taken Comments Blood Pressure 166/76 07/30/2023 8:40 AM CDT Pulse 69 07/30/2023 8:40 AM CDT Temperature 36.1 ??C (97 ??F) 07/30/2023 8:40 AM CDT Respiratory Rate 14 07/30/2023 8:40 AM CDT Oxygen Saturation 99% 07/30/2023 8:40 AM CDT Inhaled Oxygen Concentration - - Weight - - Height - - Body Mass Index - - documented in this encounter Discharge Instructions * Discharge Instructions* Ronny Xavier PA - 07/30/2023 8:17 AM CDT Interventional Radiology Outpatient Discharge Instructions/Note Diagnosis: Breast Collection Procedure:Drain Evaluation and Exchange Limitations: [] You received medication that may [...] to clean the site separately with a washclothand warm soapy water. [x] Do not submerge [...] draining. To contact an Interventional Radiologist at [facility] call [phone] Saturday through Saturday from 7:30am-4:30pm. At all other times call [phone] and ask that the Interventional Radiologist be paged. To contact an Interventional Radiologist at [facility] call [phone] Saturday through Saturday from 7:30am-3:30pm. To contact an Interventional Radiologist RN at [facility] call [phone] Saturday through Saturday from 7:00 am-5:00 pm. To schedule an appointment with Interventional Radiology at [facility] call [phone] Saturday through Saturday from 7:30 am-4:00 pm. [...] Please come to: [] 3rd Floor [facility] [] 4th floor [facility] [] [facility] [] [facility] Please call [phone] if you need to schedule a follow [...] encounter Miscellaneous Notes * Post-Procedure Note - Ronny Xavier PA - 07/30/2023 8:00 AM CDT Radiology Brief Post Procedure Note Provider: VENUS Elliott Sedation/Anesthesia: Local Pre-Op/Pre-Procedure Diagnosis: Breast Collection Post-Op/Post-Procedure Diagnosis: Same Procedure Performed: Drain evaluation and exchange Procedure Findings: Contrast injection shows cavity collapsed around 12F cope catheter with minimaloutput. Catheter downsized to facilitate resolution. Complications: None Estimated Blood Loss: < 30 ml Specimens: None Condition: Stable Full report to follow. * Pre-Procedure Note - Ronny Xavier PA - 07/30/2023 8:00 AM CDT Radiology Procedure Plan Indication: Breast Fluid collection Planned Procedure: Drain Evaluation, possible exchange/sclerosis/removal documented in this encounter Plan of Treatment Not on file documented as of this encounter Procedures Procedure Name Priority Date/Time Associated Diagnosis Comments ABSCESS CATHETER INJECTION Schedule Routine, Read Routine (OP Routine) 07/30/2023 8:41 AM CDT Malignant neoplasm of upper-inner quadrant of [...] questions arise, please contact us by calling [phone]. Dictated by: Amari Gifford MD The radiology [...] procedure. TECHNIQUE: Prior to beginning the procedure, [place] Protocol was used to confirm the patient's identity and planned procedure. Fluoroscopy time has been recorded in the electronic medical record. After obtaining a senior reservoir engineer image, the catheter was injected with dilute [...] procedure. TECHNIQUE: Prior to beginning the procedure, [place] Protocol was used to confirm the patient's identity and planned procedure. Fluoroscopy time has been recorded in the electronic medical record. After obtaining a senior reservoir engineer image, the catheter was injected with dilute [...] questions arise, please contact us by calling [phone]. Dictated by: Amari Gifford MD The radiology attending physician has personally reviewed this study, and had reviewed and/or edited this written report and agrees with it. Electronically signed by: Paulo Villanueva M.D. us Ronny DONOVAN IMG IR PROCEDURES Fin al Result * IR Inject Abscess Catheter (07/30/2023 8:41 [...] questions arise, please contact us by calling [phone]. Electronically signed by: Ronny Xavier PA-C Narrative 07/30/2023 11:59 AM CDT EXAMINATION: ??DRAINAGE CATHETER EVALUATION AND EXCHANGE HISTORY: ??67-year-old woman with history of breast cancer and colon adenocarcinoma, status post bilateral mastectomy with increasing fluid collection in the left chest wall. IR placed a 12 Somali cope loop catheter on 07/17/2023. Patient reports approximately 1 ounce of thin clear yellow fluid daily output. PROVIDER PRESENCE: ??Ronny Xavier PA-C was present from the beginning to the end of the procedure. SEDATION: ??The patient did not require conscious sedation for the procedure. TECHNIQUE: ??Prior to beginning the procedure, [place] Protocol was used to confirm the patient's identity and planned procedure. Fluoroscopy time has been recorded in the electronic medical record. Maximum sterile barriers including cap, mask, hand hygiene, sterile gloves, sterile gown, large sterile drape and 2% chlorhexidine for cutaneous antisepsis were used. After obtaining a senior reservoir engineer image, the catheter was injected with dilute contrast and multiple diagnostic fluoroscopic spot images were obtained. The skin overlying the collection was sterilely prepped, draped and infiltrated with 1% buffered lidocaine. The catheter was then exchanged over a HELM Bootsson guidewire for a new 10 Somali Haque-Ryder catheter. ??Limited contrast injection confirmed appropriate [...] left chest wall. IR placed a 12 Somali cope loop catheter on 07/17/2023. Patient reports approximately 1 ounce of thin clear yellow fluid daily output. PROVIDER PRESENCE: Ronny Xavier PA-C was present from the beginning to the end of the procedure. SEDATION: The patient did not require conscious sedation for the procedure. TECHNIQUE: Prior to beginning the procedure, [place] Protocol was used to confirm the patient's identity and planned procedure. Fluoroscopy time has been recorded in the electronic medical record. Maximum sterile barriers including cap, mask, hand hygiene, sterile gloves, sterile gown, large sterile drape and 2% chlorhexidine for cutaneous antisepsis were used. After obtaining a senior reservoir engineer image, the catheter was injected with dilute contrast and multiple diagnostic fluoroscopic spot images were obtained. The skin overlying the collection was sterilely prepped, draped and infiltrated with 1% buffered lidocaine. The catheter was then exchanged over a Bentson guidewire for a new 10 Somali Haque-Ryder catheter. Limited contrast injection confirmed appropriate [...] questions arise, please contact us by calling [phone]. 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, estrogen receptor negative (HCC) documented in this encounter Administered Medications Inactive Administered Medications - up to 3 most recent administrations Medication Order MAR Action Action Date Dose Rate Site lidocaine (PF) (XYLOCAINE) 10 mg/mL (1 %) preservative free injection As needed, Starting on Sat07/30/23 at 0825, Intra-Procedure (IR), Indications: Administration of Local AnesthesiaIndications:Administr ation of Local Anesthesia Given 07/30/2023 8:25 AM CDT 2 mL Left Chest documented in this encounter Orders Medications Ordered That Jefferson ht Not Have Been Administered Count Last Ordered Date First Ordered Date lidocaine (PF) (XYLOCAINE) 1 0 mg/mL (1 %) preservative free injection 1 07/30/2023 Discharge Count Last Ordered Date First Orde red Date DISCHARGE PATIENT 1 07/30/2023 documented in this encounter Care Teams Human Resources Operations Specialist Relationship Specialty Start Date End Date Dat Benito DO [address] [place] [address] PCP - General Internal Medicine 09/28/21 Aft, Kianna Machado MD PhD [address] [place] [address] Surgeon Surgical Oncology 11/22/17 Santiago Gilbert MD [address] [place] [address] College Recruiter Gastroenterology 11/22/17 Abbi Ventura MD [address] [facility] [address] [place] [address] Medical Oncologist/Meat Blender Medical Oncology 12/03/18 Montse Thompson MD [address] [facility] [address] [place] [address] Consulting Physician Gynecologic Oncology 12/03/18 Lela Hardy MD PhD [address] [facility] [address] [place] [address] Radiation Oncologist Radiation Oncology 12/23/18 Trena Obando MD [address] [place] [address] Consulting Physician Neurology 09/18/21 documented as of this encounter
--- OUTSIDE RECORDS SUMMARY | 2024-04-24 13:35 | XMS_ITS | Encounter Summary ---
Author Organization [facility] Address [address] [place] [address] Phone Care Team Providers Care Security Trainer Name Role Phone AileentKianna MD PhD Unavailable [phone] Santiago Gilbert MD Unavailable [phone] Abbi Ventura MD Unavailable Montse Thompson MD Unavailable Lela Hardy MD PhD Unavailable [phone] Trena Obando MD Unavailable Dat Benito DO Primary Care Provider [phone] Reason for Referral * Diagnostic Imaging (Routine) - Closed Specialty Diagnoses / Procedures Referred By Contronny t Referred To Contact Radiology Diagnoses Malignant 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, estrogen receptor negative (HCC) Procedures IR Fluid Drain Soft Tissue AftKianna MD PhD [address] [place] [address] Phone: tel: fax: [address] [address] Referral ID Status Reason Start Date Expiration Date Visits Re quested Visits Authorized [id number] Closed 07/15/2023 08/13/2024 1 1 Encounter Details Date Type Department Care Team (Late st Contact Info) Description 07/15/2023 Telephone [facility] Surgery [address] [facility] 5th [place] [address] [place] [address] Aft, Kianna Machado MD PhD [address] [place] [address] Social History Tobacco Use Types [...] on file 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 Attempted to reach patient - no answer, LMOR (will send Probity with the same information provided here) Her chart is being reviewed with the interventional radiologists in between their cases - it will look like she has an appointment but it has not been scheduled. Once they review her chart, they willcall me with a time and date. Waiting for patient to call back / respond to Probity message. * Telephone Encounter - Breanna Ignacio RN - 07/15/2023 8:57 AM CDT ----- Message from Kianna Bunch MD PhD sent at 07/13/2023 12:34 PM CLINICAL DOCUMENTATION DEVELOPER ----- Please schedule left mastectomy drain by IR. Please have them send the fluid for cytology. Thank you! ----- Message ----- From: Interface, Radiology Results In Sent: 07/11/2023 8:47 PM CLINICAL DOCUMENTATION DEVELOPER To: Kianna Bunch MD PhD documented in this encounter Plan of Treatment Not on file documented as of this encounter Results * IR Fluid Drain Soft Tissue (07/17/2023 [...] was obtained. ??Prior to beginning the procedure, [place] Protocol was used to confirm the patient's [...] dilating the tract to ??10 Fr. ??A 12-South Sudanese Cook catheter was then advanced over the [...] was obtained. Prior to beginning the procedure, [place] Protocol was used to confirm the patient's [...] dilating the tract to 10 Fr. A 12-South Sudanese Cook catheter was then advanced over the [...] it. Electronically signed by: Corwin Goldman M.D. Kianna Bunch MD PhD IMG IR PROCEDURES Final Re sult documented in this encounter Visit Diagnoses Diagnosis Malignant 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, estrogen receptor negative (HCC)- Primary Malignant 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, estrogen receptor negative (HCC) documented in this encounter Care Teams Security Trainer Relationship Specialty Start Date End Date Dat Benito DO [address] [place] [address] PCP - General Internal Medicine 09/28/21 Kianna Bunch MD PhD [address] [place] [address] Surgeon Surgical Oncology 11/22/17 Santiago Gilbert MD [address] [place] [address] Diver Assistant Gastroenterology 11/22/17 Abbi Ventura MD [address] [facility] [address] [place] [address] Medical Oncologist/Skate Hop Medical Oncology 12/03/18 Montse Thompson MD [address] [facility] [address] [place] [address] Consulting Physician Gynecologic Oncology 12/03/18 Lela Hardy MD PhD [address] [facility] [address] [place], [place] [id number] Radiation Oncologist Radiation Oncology 12/23/18 Trena Obando MD [address] [place], [place] [address] Consulting Physician Neurology 09/18/21 documented as of this encounter
--- OUTSIDE RECORDS SUMMARY | 2024-04-24 13:35 | XMS_ITS | Encounter Summary ---
Author Organization [facility] Healthcare Address [address] [place] [address] Care Team Providers Care Commercial Solar Sales Consultant Name Role Phone Aft, Kianna Machado MD PhD Unavailable [phone] Santiago Gilbert MD Unavailable [phone] Abbi Ventura MD Unavailable Montse Thompson MD Unavailable [phone] Lela Hardy MD PhD Unavailable [phone] Trena Obando MD Unavailable [phone] Dat Benito DO Primary Care Provider [phone] Reason for Referral * MRI/CAT/PET Scan (Routine) - Closed Specialty Diagnoses / Procedures Referred By Vijaya simpson Referred To Contact Radiology Diagnoses Malignant 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, estrogen receptor negative (HCC) Chest wall pain Procedures MRI Brachial Plexus W WO Contrast Right Abbi Ventura MD [address] [place] [address] [address] [place] [address] Phone: tel: fax: [facility] Referral ID Status Reason Start Date Expiration Date Visits Re quested Visits Authorized [id number] Closed 02/05/2024 03/06/2025 1 1 Reason for Visit * MRI/CAT/PET Scan (Routine) - Closed Specialty Diagnoses / Procedures Referred By Contac t Referred To Contact Radiology Diagnoses Malignant 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, estrogen receptor negative (HCC) Chest wall pain Procedures MRI Brachial Plexus W WO Contrast Right Abbi Ventura MD [address] [facility] [address] [place] [address] Phone: tel: fax: [facility] Referral ID Status Reason Start Date Expiration Date Visits Re quested Visits Authorized [id number] Closed 02/05/2024 03/06/2025 1 1 Encounter Details Date Type Department Care Team (Latest Contact Info) Description 02/19/2024 1:43 PM CDT - 02/19/2024 11:59 PM CDT Hospital Encounter [facility] [address] [place] [address] Malignant neoplasm of upper-inner quadrant of left [...] on file 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 Abbi Ventura MD [facility] MRI PROCEDURES Final Result documented in this encounter Visit Diagnoses Diagnosis Malignant 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, estrogen receptor negative (HCC) Chest wall pain Painful respiration documented in this encounter Administered Medications Inactive Administered Medications - up to 3 most recent administrations Medication Order MAR Action Action Date Dose Rate Site gadoterate meglumine injection 18 mL 18 mL, intravenous, Once in imaging, contrast, Starting on Sat02/19/24 at 1539, For 1 dose Contrast Given 02/19/2024 3:40 PM CDT 18 mL documented in this encounter Orders Medications Ordered That Jefferson ht Not Have Been Administered Count Last Ordered Date First Ordered Date gadoterate meglumine injection 18 mL 1 02/03 documented in this encounter Care Teams Commercial Solar Sales Consultant Relationship Specialty Start Date End Date Dat Benito DO [address] [place] [address] PCP - General Internal Medicine 09/28/21 Aft, Kianna Machado MD PhD [address] [place] [address] Surgeon Surgical Oncology 11/22/17 Santiago Gilbert MD [address] [place] [address] Special Education Educational Assistant Gastroenterology 11/22/17 Abbi Ventura MD [address] [place] [address] [address] [place] [address] Medical Oncologist/Bean Snipper Medical Oncology 12/03/18 Montse Thompson MD [address] [place] [address] [address] [place] [address] Consulting Physician Gynecologic Oncology 12/03/18 Lela Hardy MD PhD [address] [place] [address] [address] [place] [address] Radiation Oncologist Radiation Oncology 12/23/18 Trena Obando MD [address] [place] [address] Consulting Physician Neurology 09/18/21 documented as of this encounter
--- OUTSIDE RECORDS SUMMARY | 2024-04-24 13:35 | XMS_ITS | Encounter Summary ---
Author Organization [facility] Healthcare Address [address] [place] [address] Care Team Providers Care Parachute Rigger Name Role Phone Aft, Kianna Machado MD PhD Unavailable [phone] Santiago Gilbert MD Unavailable [phone] Abbi Ventura MD Unavailable Montse Thompson MD Unavailable [phone] Lela Hardy MD PhD Unavailable [phone] Trena Obando MD Unavailable [phone] Dat Benito DO Primary Care Provider [phone] Encounter Details Date Type Department Care Team (Late st Contact Info) Description 08/07/2023 Telephone [facility] Radiology [address] [place] [address] Boo Real RN Social History Tobacco Use Types Packs/Day [...] on file 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 Gender Identity Not on file Sexual Orientation Not on file documented as of this encounter Miscellaneous Notes * Telephone Encounter - Boo Real RN - 08/07/2023 3:08 PM CDT No answer documented in this encounter Plan of Treatment Not on file documented as of this encounter Visit Diagnoses Not on filedocumented in this encounter Care Teams Parachute Rigger Relationship Specialty Start Date End Date Dat Benito DO [address] [place] [address] PCP - General Internal Medicine 09/28/21 Aft, Kianna Machado MD PhD [address] [place] [address] Surgeon Surgical Oncology 11/22/17 Santiago Gilbert MD [address] [place] [address] Air Conditioning Sheet Metal Installer Gastroenterology 11/22/17 Abbi Ventura MD [address] [place] [address] Medical Oncologist/Restoration Officer Medical Oncology 12/03/18 Montse Thompson MD [address] [place] [address] Consulting Physician Gynecologic Oncology 12/03/18 Lela Hardy MD PhD [address] [facility] [address] [place] [address] Radiation Oncologist Radiation Oncology 12/23/18 Trena Obando MD [address] [place] [address] Consulting Physician Neurology 09/18/21 documented as of this encounter
--- OUTSIDE RECORDS SUMMARY | 2024-04-24 13:36 | XMS_ITS | Encounter Summary ---
Author Organization [facility] Address [address] [place] [address] Phone Care Team Providers Care Strip Feeder Name Role Phone Aft, Kianna Machado MD PhD Unavailable [phone] Santiago Gilbert MD Unavailable [phone] Abbi Ventura MD Unavailable Montse Thompson MD Unavailable [phone] Lela Hardy MD PhD Unavailable [phone] Trena Obando MD Unavailable [phone] Dat Benito DO Primary Care Provider [phone] Encounter Details Date Type Department Care Team (Late st Contact Info) Description 09/03/2022 3:20 PM CDT Office Visit [facility] Surgery [facility] Advanced Medicine 5th [place] [address] [place] [address] Aft, Kianna Machado MD PhD [address] [place] [address] Malignant 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, estrogen receptor negative (HCC) (Primary Dx) Social History Tobacco Use Types Packs/Day Years Used Date Smoking Tobacco: Former Cigarettes 1 42 1 973 - 2015 Smokeless Tobacco: Never Tobacco Cessation:Counseling Given: Not Answered Alcohol Use Standard Drinks/Week Comments Not Currently 0 (1 standard drink = 0.6 oz pur e alcohol) socially AUDIT-C Answer Date Recorded Q1: How often do you have a drink containing alcohol? Never 05/22/2022 Q2: How many drinks containi ng alcohol do you have on a typical day when you are drinking? Patient does not drink Q3: How often do you have si x or more drinks on one occasion? 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 Gender Identity Not on file Sexual Orientation Not on file documented as of this encounter Last Filed Vital Signs Vital Sign Reading Time Taken Comments Blood Pressure - - Pulse - - Temperature - - Respiratory Rate - - Oxygen Saturation - - Inhaled Oxygen Concentration - - Weight 110.7 kg (244 lb) 09/03/2022 3:16 PM CDT Height 175.3 cm (5' 9 ) 09/03/2022 3:16 PM CDT Body Mass Index 36.03 09/03/2022 3:16 PM CDT documented in this encounter Progress Notes * Kianna Bunch MD PhD - 09/03/2022 3:20 PM CDT Kianna Bunch M.D., Ph.D., [facility] Section of Surgical Oncology and Endocrinology [facility] [address] [place] [address], Box [facility], [place] [address] - NAME: Aleah Gerber : 1955 DATE: 09/03/2022 CHIEF COMPLAINT: No chief complaint on file. HISTORY OF PRESENT ILLNESS: The patient is a 67 y.o. female status post bilateral mastectomy and right sentinel lymph node biopsy 05/22/2022. The patient presents for a follow up visit. The patient states that she has done well post- operatively. She had a small TNBC with negative margins. There was no further need for radiation and she declined any further chemotherapy. PHYSICAL EXAMINATION: Vitals LMP (LMP Unknown) General: Well-developed and well-nourished. Neuro: Patient is awake and alert and cooperative. Psych: Appropriate mood and affect for this visit. HEENT: Normocephalic, atraumatic. Anicteric sclera, extraocular eye movements intact, hearing is grossly intact. No nasal discharge. Moist mucous membranes. Neck: Supple without overt masses or adenopathy. Respiratory: There is no obvious wheezing or dyspnea. No use of accessory muscles of respiration. Cardiovascular: Pulse is regular. No peripheral edema. No jugular venous distention. Gastrointestinal: Abdomen is soft without evidence of peritonitis. Lymphatics: There is no cervical, supraclavicular, or infraclavicular adenopathy. Skin: There are no worrisome skin lesions in the examined skin. Breasts: Right Breast: Surgically absent without skin nodules, concerning lesions. Examination of axilla reveals no concerning masses or adenopathy. Left Breast: Surgically absent without skin nodules, concerning lesions. Examination of axilla reveals no concerning masses or adenopathy. PATHOLOGY: Diagnosis: A. Lymph node, right axillary, sentinel, excision - No evidence of malignancy in two lymph nodes (0/2) B. Breast, right, simple mastectomy - Invasive ductal carcinoma (see comment) - Atleast 5 mm (around the biopsied area) - Histologic grade= 2/3 (Tub 3 + Nuc 2 + Uli 1 = 6/9 by ESBR criteria) - Surgical margins are negative (all margins greater than 10 mm) - Lymphovascular invasion not identified - Previous biopsy site changes (clip identified) - Associated with chronic inflammation - Ductal carcinoma in situ (DCIS) - Low nuclear grade (1/3 by SBR criteria) - Non-extensive, not directly measurable - Solid and cribriform type focal comedonecrosis, associated with chronic inflammation - Surgical margins negative for DCIS (all margins greater than 5 mm) - Previous surgical site changes with fat necrosis - Incidental radial scar - Background breast with cystic apocrine metaplasia, columnar cell change/hyperplasia, usual ductalhyperplasia - Benign breast tissue with microcalcifications - Benign portion of skin and nipple - No evidence of malignancy in eight lymph nodes (0/8) - See synoptic report C. Breast, left, simple mastectomy - Focal ductal cytological atypia with microcalcifications; favor radiation/treatment effect - Cystic apocrine metaplasia, stromal fibrosis, adenosis with microcalcifications - Benign portion of skin and nipple - Three incidental lymph nodes with no evidence of malignancy (0/3) - No invasive carcinoma identified ASSESSMENT: T1N0 IDC TNBC PLAN: bilateral mastectomy and right sentinel lymph node biopsy for a TNBC T1N0 IDC cancer. Following her surgical therapy, she did not undergo adjuvant chemotherapy. Following her surgical therapy, she did not undergo adjuvant radiation therapy.. I reassured her that based on her clinical examination there is no evidence of any recurrent disease or new abnormalities. She will follow-up in 6 months at which time we will perform a breast exam. We recommended that she continue self examinations on a monthly basis and notify us of any changes. She will call with any questions. Kianna Bunch MD PhD servomechanism assembler I have seen and examined Aleah Gerber with the Resident physician. We worked together to completethe office note, and I personally reviewed and edited the note. I agree with the evaluation and management plan outlined above. Kianna Bunch MD, PhD documented in this encounter Plan of Treatment Not on file documented as of this encounter Visit Diagnoses Diagnosis Malignant 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, estrogen receptor negative (HCC)- Primary documented in this encounter Care Teams Strip Feeder Relationship Specialty Start Date End Date Dat Benito DO [address] [place] [address] PCP - General Internal Medicine 09/28/21 Kianna Bunch MD PhD [address] [place] [address] Surgeon Surgical Oncology 11/22/17 Santiago Gilbert MD [address] [place] [address] Tower Excavator Operator Gastroenterology 11/22/17 Abbi Ventura MD [address] [place] [address] [address] [place] [address] Medical Oncologist/Remote Control Assembler Medical Oncology 12/03/18 Montse Thompson MD [address] [place] [address] [address] [place] [address] Consulting Physician Gynecologic Oncology 12/03/18 Lela Hardy MD PhD [address] [place] [address] [address] [place] [address] Radiation Oncologist Radiation Oncology 12/23/18 Trena Obando MD [address] [place] [address] Consulting Physician Neurology 09/18/21 documented as of this encounter
--- OUTSIDE RECORDS SUMMARY | 2024-04-24 13:36 | XMS_ITS | Encounter Summary ---
Author Organization [facility] Address [address] [place] [address] Care Team Providers Care Cutting Room Supervisor Name Role Phone Aft, Kianna Machado MD PhD Unavailable [phone] Santiago Gilbert MD Unavailable [phone] Abbi Ventura MD Unavailable Montse Thompson MD Unavailable [phone] Lela Hardy MD PhD Unavailable [phone] Trena Obando MD Unavailable Dat Benito DO Primary Care Provider [phone] Reason for Visit * MRI/CAT/PET Scan (Routine) - Closed Specialty Diagnoses / Procedures Referred By Contac t Referred To Contact Radiology Diagnoses BRCA2 gene mutation positive in female Procedures CT Abdomen Pelvis WO Contrast CT Abdomen Pelvis W Contrast Montse Thompson MD [id number] [place] [address] Phone: tel: fax: [address] [address] Referral ID Status Reason Start Date Expiration Date Visits Re quested Visits Authorized [id number] Closed 11/19/2022 12/19/2023 1 1 Encounter Details Date Type Department Care Team (Latest Contact Info) Description 11/23/2022 2:25 PM CDT - 11/23/2022 11:59 PM CDT Hospital Encounter [facility] [address] [place] [address] BRCA2 gene mutation positive in female Discharge Disposition: Discharge to home or self [...] more drinks on one occasion? 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 Do not swallow. 60 each 5 06/05/2021 3 documented as of this encounter Discharge Disposition Disposition Code Departure Means Destination Discharge to home or self care documented in this encounter Plan of Treatment Not on file documented as of this encounter Procedures Procedure Name Priority Date/Time Associated Diagnosis Comments CT ABDOMEN PELVIS WO CONTRAST Schedule Routine, Read Routine (OP Routine) 11/23/2022 3:25 PM CDT BRCA2 gene mutation positive in female POCT CREATININE - DEVICE Routine 11/23/2022 2:59 PM CDT documented in this encounter Results * CT Abdomen Pelvis WO Contrast (11/23/2022 3:25 PM CDT) Anatomical Region Laterality Modality Body N/A Computed Tomogra phy 11/23/2022 3:58 PM CDT Impressions 11/23/2022 4:03 PM CDT No pathology identified in the abdomen or pelvis to correlate with the patient's reported symptoms. Dictated by: Boone Malone MD The radiology attending physician has personally reviewed this study, and had reviewed and/or edited this written report and agrees with it. Electronically signed by: Marlon Anderson M.D. Narrative 11/23/2022 4:03 PM CDT EXAMINATION: ??Computed tomography of the abdomen and pelvis without intravenous contrast HISTORY: 67-year-old female with pelvic pressure for 2 months. History of breast cancer and ovarian cancer status post bilateral mastectomy and hysterectomy/[id number] TECHNIQUE: ??Transaxial computed tomographic images of the abdomen and pelvis ??were obtained without intravenous contrast according to the standard protocol COMPARISON: CT 07/03/2022 FINDINGS: ?? The imaged heart is normal in size without pericardial effusion. ??The imaged lung bases are clear. ??Status post bilateral mastectomy. Previously seen left anterior chest wall fluid collection is only partially imaged and incompletely evaluated on this examination. Diffuse hepatic steatosis. ??Unchanged focus of hypoattenuation in hepatic segment 4B which corresponds to focal fat on prior MRI. Cholelithiasis. ??No evidence of cholecystitis. ??The common bile duct is normal in diameter. ??The spleen is normal with multiple splenules. The adrenal glands are normal. ??The pancreas is normal. ?? The left kidney is somewhat atrophic. ??Unchanged cyst in the lower pole of the right kidney. ??There is no hydronephrosis. ??The bladder is decompressed. ??The uterus and ovaries are surgically absent. ??The small and large bowel are normal in caliber without evidence of obstruction. ??The appendix is normal. ??Scattered colonic diverticula without evidence of diverticulitis. ??There are postsurgical changes of partial colectomy anastomosis. ??No intraperitoneal free air or free fluid. ??No lymphadenopathy identified in the abdomen or pelvis. Ectasia of the infrarenal abdominal aorta and right common iliac artery. ??No suspicious osseous lesion. ?? Procedure Note Marlon Anderson MD - 11/23/2022 EXAMINATION: Computed tomography of the abdomen and pelvis without intravenous contrast HISTORY: 67-year-old female with pelvic pressure for 2 months. History of breast cancer and ovarian cancer status post bilateral mastectomy and hysterectomy/[id number] TECHNIQUE: Transaxial computed tomographic images of the abdomen and pelvis were obtained without intravenous contrast according to the standard protocol COMPARISON: CT 07/03/2022 FINDINGS: The imaged heart is normal in size without pericardial effusion. The imaged lung bases are clear. Status post bilateral mastectomy. Previously seen left anterior chest wall fluid collection is only partially imaged and incompletely evaluated on this examination. Diffuse hepatic steatosis. Unchanged focus of hypoattenuation in hepatic segment 4B which corresponds to focal fat on prior MRI. Cholelithiasis. No evidence of cholecystitis. The common bile duct is normal in diameter. The spleen is normal with multiple splenules. The adrenal glands are normal. The pancreas is normal. The left kidney is somewhat atrophic. Unchanged cyst in the lower pole of the right kidney. There is no hydronephrosis. The bladder is decompressed. The uterus and ovaries are surgically absent. The small and large bowel are normal in caliber without evidence of obstruction. The appendix is normal. Scattered colonic diverticula without evidence of diverticulitis. There are postsurgical changes of partial colectomy anastomosis. No intraperitoneal free air or free fluid. No lymphadenopathy identified in the abdomen or pelvis. Ectasia of the infrarenal abdominal aorta and right common iliac artery. No suspicious osseous lesion. IMPRESSION: No pathology identified in the abdomen or pelvis to correlate with the patient's reported symptoms. Dictated by: Boone Malone MD The radiology attending physician has personally reviewed this study, and had reviewed and/or edited this written report and agrees with it. Electronically signed by: Marlon Anderson M.D. us Premal Ac Thompson MD IMG CT PROCEDURES Final Result * (ABNORMAL) POCT creatinine (11/23/2022 2:59 PM CDT) Creatinine POC 1.6(H) 0.6 - 1.1 mg/dL [facility] Blood 11/23/2022 2:59 PM CDT 11/23/2022 2:59 PM CDT Montse Thompson MD LAB POCT ORDERABLES - DE VICE Final Result [facility] Department [place] [address] documented in this encounter Visit Diagnoses Diagnosis BRCA2 gene mutation positive in female documented in this encounter Care Teams Cutting Room Supervisor Relationship Specialty Start Date End Date Dat Benito DO [address] [place] [address] PCP - General Internal Medicine 09/28/21 Aft, Kianna Machado MD PhD [address] [place] [address] Surgeon Surgical Oncology 11/22/17 Santiago Gilbert MD [address] [place] [address] Hip Hop Dance Instructor Gastroenterology 11/22/17 Abbi Ventura MD [address] [place] [address] [address] [place] [address] Medical Oncologist/Lab Head Medical Oncology 12/03/18 Montse Thompson MD [address] [place] [address] Consulting Physician Gynecologic Oncology 12/03/18 Lela Hardy MD PhD [address] [facility] [address] [place] [address] Radiation Oncologist Radiation Oncology 12/23/18 Trena Obando MD [address] [place] [address] Consulting Physician Neurology 09/18/21 documented as of this encounter
--- OUTSIDE RECORDS SUMMARY | 2024-04-24 13:36 | XMS_ITS | Encounter Summary ---
Author Organization [facility] Address [address] [place] [address] Phone Care Team Providers Care Photo Checker Name Role Phone Aft, Kianna Machado MD PhD Unavailable [phone] Santiago Gilbert MD Unavailable [phone] Abbi Ventura MD Unavailable Montse Thompson MD Unavailable [phone] Lela Hardy MD PhD Unavailable [phone] Trena Obando MD Unavailable [phone] Dat Benito DO Primary Care Provider [phone] Encounter Details Date Type Department Care Team (Late st Contact Info) Description 02/19/2023 Orders Only [facility] Pulmonary [address] [facility] Advanced Medicine 8th [place] [address] [place] [address] Cristobal Dong MD [address] [place] [address] Social History Tobacco Use Types Packs/Day Years Used Date Smoking Tobacco: Former Cigarettes 1 42 1 - 2014 Smokeless Tobacco: Never Alcohol Use [...] on file 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 RN TELEPHONE TRIAGE Gender Identity Not on file Sexual Orientation Not on file documented as of this encounter Ordered Prescriptions Prescription Sig Dispense Quantity Refills Last Filled Start Date End Date fluticasone propion-salmeteroL (ADVAIR DISKUS) 500-50 mcg/dose diskus inhaler Inhale 1 puff 2 (two) times a day Rinse mouth with water after use. Do not swallow. 60 each 02/19/2023 documented in this encounter Plan of Treatment Not on file documented as of this encounter Visit Diagnoses Not on filedocumented in this encounter Discontinued Medications Medication Sig Discontinue Reason Start Date End Da te fluticasone propion-salmeteroL (ADVAIR DISKUS) 500-50 mcg/dose diskus inhaler Inhale 1 puff 2 (two) times a day Rinse mouth with water after use. Do not swallow. Reorder 06/05/2021 02/19/2023 documented as of this encounter Care Teams Photo Checker Relationship Specialty Start Date End Date Dat Benito DO [address] [place] [address] PCP - General Internal Medicine 09/28/21 AftKianna MD PhD [address] [place] [address] Surgeon Surgical Oncology 11/22/17 Santiago Gilbert MD [address] [place] [address] Architecture Department Chair Gastroenterology 11/22/17 Abbi Ventura MD [address] [place] [address] Medical Oncologist/Traffic I Manager Medical Oncology 12/03/18 Montse Thompson MD [address] [facility] [address] [place] [address] Consulting Physician Gynecologic Oncology 12/03/18 Leal Hardy MD PhD [address] [facility] [address] [place] [address] Radiation Oncologist Radiation Oncology 12/23/18 Trena Obando MD [address] [place] [address] Consulting Physician Neurology 09/18/21 documented as of this encounter
--- OUTSIDE RECORDS SUMMARY | 2024-04-24 13:36 | XMS_ITS | Encounter Summary ---
Author Organization [facility] Address [address] [place] [address] Care Team Providers Care Sand Bobber Name Role Phone Aft, Kianna Machado MD PhD Unavailable [phone] Santiago Gilbert MD Unavailable [phone] Abbi Ventura MD Unavailable Montse Thompson MD Unavailable [phone] Lela Hardy MD PhD Unavailable [phone] Trena Obando MD Unavailable [phone] Dat Benito DO Primary Care Provider [phone] Encounter Details Date Type Department Care Team (Late st Contact Info) Description 04/11/2023 1:00 PM LOADING MACHINE OPERATOR Lab [address] [address] Malignant neoplasm of upper-inner quadrant [...] on file 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 LOADING MACHINE OPERATOR Gender Identity Not on file Sexual Orientation Not on file documented as of this encounter Plan of Treatment Not on file documented as of this encounter Procedures Procedure Name Priority Date/Time Associated Diagnosis Comments EGFR Routine 04/11/2023 12:52 PM LOADING MACHINE OPERATOR Malignant 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, 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) DIFFERENTIAL AUTO Routine 04/11/2023 12: 52 PM LOADING MACHINE OPERATOR Malignant 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, 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) CBC WITH AUTO DIFFERENTIAL Routine 04/11/2023 12:52 PM LOADING MACHINE OPERATOR Malignant 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, 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) CA 125 Routine 04/11/2023 12:52 PM LOADING MACHINE OPERATOR Malignant 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, 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 73 m2 [facility] Comment: Interpretive Data Reference Interval Normal [...] interpretive data was last reviewed 2021. Blood 04/11/2023 12:5 2 PM LOADING MACHINE OPERATOR 04/11/2023 12:53 PM LOADING MACHINE OPERATOR us Abbi Ventura MD LAB BLOOD ORDERABLES Final Resul t Performing Organization Address City/State/[facility] Co de Phone Number [facility] [place] [address] * Differential, auto (04/11/2023 12:52 PM LOADING MACHINE OPERATOR) Neutrophil abs 4.8 1.5 - 6.5 K/cumm [facility] Comment:Testing performed by : [facility], [address] [place] [id number] Imm gran abs 0.0 0.0 - 0.1 K/cumm [facility] Lymphocyte abs 1.5 0.8 - 3.3 K/cumm [facility] Monocyte abs 0.4 0.2 - 0.8 K/cumm [facility] Eosinophil abs 0.3 0.0 - 0.5 K/cumm [facility] Basophil abs 0.1 0.0 - 0.1 K/cumm [facility] Neutrophil pct 67.9 % [facility] Comment: Interpretive Data Percent cell count reference ranges are not reported, since discordance with absolute values may lead to misinterpretation of CBC data. Current Interpretive Data was last revised on 2017. Imm gran pct 0.4 % [facility] Comment: Interpretive Data Percent cell count reference ranges are not reported, since discordance with absolute values may lead to misinterpretation of CBC data. Current Interpretive Data was last revised on 2017. Lymphocyte pct 20.5 % [facility] Comment: Interpretive Data Percent cell count reference ranges are not reported, since discordance with absolute values may lead to misinterpretation of CBC data. Current Interpretive Data was last revised on 2017. Monocyte pct 5.8 % [facility] Comment: Interpretive Data Percent cell count reference ranges are not reported, since discordance with absolute values may lead to misinterpretation of CBC data. Current Interpretive Data was last revised on 2017. Eosinophil pct 4.4 % [facility] Comment: Interpretive Data Percent cell count reference ranges are not reported, since discordance with absolute values may lead to misinterpretation of CBC data. Current Interpretive Data was last revised on 2017. Basophil pct 1.0 % [facility] Comment: Interpretive Data Percent cell count reference ranges are not reported, since discordance with absolute values may lead to misinterpretation of CBC data. Current Interpretive Data was last revised on 2017. Blood 04/11/2023 12:5 2 PM LOADING MACHINE OPERATOR 04/11/2023 12:53 PM LOADING MACHINE OPERATOR us Abbi eVntura MD LAB BLOOD ORDERABLES Final Resul t [facility] Department [place] [address] * CEA (04/11/2023 12:52 PM LOADING MACHINE OPERATOR) CEA 1.4 <=5.0 ng/mL [facility] Comment: Interpretive Data: Reference Range: Non-Smokers: 0.0 ? 5.0 ng/mL Smokers: 0.0 ? 6.5 ng/mL The Bo CEA assay procedure was used. Results from different manufacturers or methods may not be comparable. Serial testing should be performed using the same method. Current interpretive data was last revised 2021. Blood 04/11/2023 12:5 2 PM LOADING MACHINE OPERATOR 04/11/2023 2:35 PM LOADING MACHINE OPERATOR us Abbi Ventura MD LAB BLOOD ORDERABLES Final Resul t [facility] Department [place] [address] * (ABNORMAL) CBC with auto differential (04/11/2023 12:52 PM LOADING MACHINE OPERATOR) [facility] WBC 7.1 3.8 - 9.9 K/cumm [facility] Comment:Testing performed by : [address] [address] Hgb 11.9 11.9 - 15.5 g/dL [facility] Comment: Testing performed by: [address] [address] Interpretive Data A reference range for this assay has not been established for patients with an unknown legal sex. Please refer to the laboratory test catalog for established sex-specific reference intervals. Current interpretive data was last revised on 2023. Hct 37.4 35.6 - 45.5 % [facility] Comment: Testing performed by: [address] [address] Interpretive Data A reference range for this assay has not been established for patients with an unknown legal sex. Please refer to the laboratory test catalog for established sex-specific reference intervals. Current interpretive data was last revised on 2023. Plt 176 150 - 400 K/cumm [facility] Comment:Testing performed by : [address] [address] MPV 9.0(L) 9.1 - 12.3 fL [facility] RBC 4.13 3.90 - 5.20 M/cumm [facility] Comment: Interpretive Data A reference range for this assay has not been established for patients with an unknown legal sex. Please refer to the laboratory test catalog for established sex-specific reference intervals. Current interpretive data was last revised on 2023. MCV 90.6 81.3 - 96.4 fL [facility] MCH 28.8 27.1 - 33.3 pg [facility] MCHC 31.8(L) 32.3 - 35.7 g/dL [facility] RDW CV 13.2 11.1 - 14.9 % [facility] RDW SD 43.9 35.7 - 48.1 fL [facility] NRBC abs 0.00 0.00 - 0.01 K/cumm [facility] Blood 04/11/2023 12:5 2 PM LOADING MACHINE OPERATOR 04/11/2023 12:53 PM LOADING MACHINE OPERATOR Abbi Ventura MD LAB BLOOD ORDERABLES Final Resul t Performing Organization Address [facility] [place] [address] * CA 125 (04/11/2023 12:52 PM LOADING MACHINE OPERATOR) CA 125 ag 7.4 0.0 - 38.1 units/mL [facility] Comment: Interpretive Data The Bo CA 125 assay procedure was used. Results from different manufacturers or methods may not be comparable. Serial testing should be performed using the same method. Blood 04/11/2023 12:5 2 PM LOADING MACHINE OPERATOR 04/11/2023 2:35 PM LOADING MACHINE OPERATOR Abbi Ventura MD LAB BLOOD ORDERABLES Final Resul t Performing Organization Address [facility] [place] [address] * (ABNORMAL) Comprehensive metabolic panel (04/11/2023 12:52 PM LOADING MACHINE OPERATOR) Sodium 139 135 - 145 mmol/L [facility] Comment:Testing performed by : [facility], [address] [place] [address] Potassium, pl 4.2 3.3 - 4.9 mmol/L [facility] Chloride 109 97 - 110 mmol/L [facility] CO2 26 22 - 32 mmol/L [facility] Anion gap 4 2 - 15 mmol/L [facility] BUN 24 6 - 25 mg/dL [facility] Creatinine 1.41(H) 0.60 - 1.10 mg/dL [facility] Glucose 116 70 - 199 mg/dL [facility] Comment: Interpretive Data Fasting glucose >/= 126 [...] interpretive data was last revised 2022. Calcium 9.2 8.5 - 10.3 mg/dL [facility] Bilirubin, total 0.4 0.1 - 1.2 mg/dL [facility] Protein, pl 7.2 6.5 - 8.5 g/dL [facility] Albumin 4.3 3.5 - 5.0 g/dL [facility] Alk phos 90 40 - 130 Units/L [facility] ALT 11 7 - 45 Units/L [facility] AST 18 10 - 45 Units/L [facility] Blood 04/11/2023 12:5 2 PM LOADING MACHINE OPERATOR 04/11/2023 12:53 PM LOADING MACHINE OPERATOR us Abbi Ventura MD LAB BLOOD ORDERABLES Final Resul t [facility] Department [place] [address] documented in this encounter Visit Diagnoses Diagnosis Malignant 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, 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) Malignant neoplasm of descending colon documented in this encounter Care Teams Sand Bobber Relationship Specialty Start Date End Date Dat Benito DO [address] [place] [address] PCP - General Internal Medicine 09/28/21 Aft, Kianna Machado MD PhD [address] [place] [address] Surgeon Surgical Oncology 11/22/17 Santiago Gilbert MD [address] [place] [address] Lamination Machine Operator Gastroenterology 11/22/17 Abbi Ventura MD [address] [place] [address] [address] [place] [address] Medical Oncologist/Senior Nurse Manager Medical Oncology 12/03/18 Montse Thompson MD [address] [place] [address] [address] [place] [address] Consulting Physician Gynecologic Oncology 12/03/18 Lela Hardy MD PhD [address] [place] [address] [address] [place] [address] Radiation Oncologist Radiation Oncology 12/23/18 Trena Obando MD [address] [place] [address] Consulting Physician Neurology 09/18/21 documented as of this encounter
--- OUTSIDE RECORDS SUMMARY | 2024-04-24 13:36 | XMS_ITS | Encounter Summary ---
Author Organization [facility] Address [address] [place] [address] Phone Care Team Providers Care Filtrose Crusher Name Role Phone Aft, Kianna Machado MD PhD Unavailable [phone] Santiago Gilbert MD Unavailable [phone] Abbi Ventura MD Unavailable Montse Thompson MD Unavailable [phone] Lela Hardy MD PhD Unavailable [phone] Trena Obando MD Unavailable [phone] Dat Benito DO Primary Care Provider [phone] Encounter Details Date Type Department Care Team (Late st Contact Info) Description 01/24/2023 1:00 PM CDT Lab [facility] Oncology [address] [place] [address] Malignant neoplasm of upper-inner quadrant of left [...] on file 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 CLEANING 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 Gender Identity Not on file Sexual Orientation Not on file documented as of this encounter Plan of Treatment Not on file documented as of this encounter Visit Diagnoses Diagnosis Malignant 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, estrogen receptor negative (HCC) documented in this encounter Orders Appointment Requests Count Last Ordered Date Fi rst Ordered Date ONCBCN LAB APPOINTMENT 1 01/24/2023 documented in this encounter Care Teams Filtrose Crusher Relationship Specialty Start Date End Date Dat Benito DO [address] [place] [address] PCP - General Internal Medicine 09/28/21 Aft, Kianna Machado MD PhD [address] [place] [address] Surgeon Surgical Oncology 11/22/17 Santiago Gilbert MD [address] [place] [address] Java Designer Gastroenterology 11/22/17 Abbi Ventura MD [facility] [address] [place] [address] Medical Oncologist/Student Outreach Coordinator Medical Oncology 12/03/18 Montse Thompson MD [address] [place] [address] Consulting Physician Gynecologic Oncology 12/03/18 Lela Hardy MD PhD [address] [place] [address] Radiation Oncologist Radiation Oncology 12/23/18 Trena Obando MD [address] [place] [address] Consulting Physician Neurology 09/18/21 documented as of this encounter
--- OUTSIDE RECORDS SUMMARY | 2024-04-24 13:36 | XMS_ITS | Encounter Summary ---
Author Organization [facility] Healthcare Address [address] [place] [address] Care Team Providers Care Licensed Certified Orthotist Name Role Phone Aft, Kianna Machado MD PhD Unavailable [phone] Santiago Gilbert MD Unavailable [phone] Abbi Ventura MD Unavailable Montse Thompson MD Unavailable [phone] Llea Hardy MD PhD Unavailable [phone] Trena Obando MD Unavailable [phone] Dat Benito DO Primary Care Provider [phone] Reason for Visit * Reason Comments OT Treatment * Consultation (Routine) - Closed Specialty Diagnoses / Procedures Referred By Contac t Referred To Contact Occupational Therapy Diagnoses Malignant 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, estrogen receptor negative (HCC) Lymphedema Abbi Ventura MD [address] [place] [address] [address] [place] [address] Phone: tel: fax: [address] [phone] Referral ID Status Reason Start Date Expiration Date V isits Requested Visits Authorized [id number] Closed Specialty Services Required 11/19/2022 12/19/2023 24 24 Encounter Details Date Type Department Care Team (Late st Contact Info) Description 11/22/2022 9:15 AM CDT Therapy [facility] Occupational Therapy [address] [place] [id number] Kassie Beltrán, OT Malignant 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, estrogen receptor negative (HCC); Lymphedema Social History Tobacco Use Types Packs/Day Years [...] on file 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 IN [employer] Gender Identity Not on file Sexual Orientation Not on file documented as of this encounter Progress Notes * Kassie Beltrán, OT - 11/22/2022 9:15 AM CDT Images from the original note were not included. OT Initial Evaluation Occupational Therapy Evaluation 11/22/2022 Aleah Gerber 1955 67 y.o. female Abbi Ventura MD [address] [place] [address] [address] [place] [address] ICD-9-CM ICD-10-CM 1. Malignant 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, estrogen receptor negative (HCC) 174.2 C50.212 Ambulatory referral order to Occupational Therapy - V86.1 Z17.1 2. Lymphedema 457.1 I89.0 Ambulatory referral order to Occupational Therapy - Past Medical History: Diagnosis Date Anemia Anxiety Asthma At risk for sleep apnea Per assessment, STOP BANG=3. Pt reports her PCP wants to do a Sleep Study in the near future. BRCA2 positive Breast cancer (HCC) 2018 left breast cancer Breast cancer (HCC) 2018 Colon cancer (CMS/HCC) (HCC) Distal transverse Colon [...] (shortness of breath) SOB (shortness of breath) 06/07 chemotherapy TIA (transient ischemic attack) 2007 Type 2 diabetes mellitus (HCC) Vascular disease Past Surgical History: Procedure Laterality Date BLADDER SUSPENSION 2010 BREAST BIOPSY Left 11/12/2017 BREAST BIOPSY Right 2008 Benign BREAST BIOPSY Right 04/13/2022 BREAST BIOPSY Left 11/11/2018 re-excision BREAST BIOPSY 01/14/2018 BREAST LUMPECTOMY 2018 COLONOSCOPY 2018 HEMICOLECTOMY Left 12/27/2017 Laparoscopic left hemicolectomy HYSTERECTOMY W/ BILATERAL SALPINGOOPHORECTOMY Bilateral 02/13/2019 INCONTINENCE SURGERY 2008 INGUINAL HERNIA REPAIR Right 1970 MASTECTOMY, PARTIAL Left 01/14/2018 Biopsy Breast Needle Localization partial mastectomy (L), Biopsy Mckenzie Lymph Node With Lymphoscintigraphy (L), Insertion Port A Cath (R) with ultrasound and fluroscopy PORT REMOVAL 04/09/2019 PORTACATH PLACEMENT 01/2018 right upper chest PORTACATH PLACEMENT Right 2017 TUBAL LIGATION 1992 VAGINAL DELIVERY Start Time: 924 End Time: 1020 Subjective/PMH: Patient presents to Occupational Therapy Lymphedema clinic with chest and arm swelling. Patient is referred by Dr. Abbi Ventura with diagnosis of malignant 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, estrogen receptor negative (C50.212,Z17.1) and lymphedema (I89.0). Patient was diagnosed with adenocarcinoma of left colon in 2017. Patient underwent laparoscopic left hemicolectomy on 12/27/2017. Patient completed chemo. Patient was diagnosed with invasive ductal adenocarcinoma of left breast 11/05/2017. Patient underwent left breast partial mastectomy and sentinel lymph node biopsy on 01/14/2018 (0/3 lymph nodes negative for malignancy). Adjuvant chemotherapy completed for breast cancer was started after patient completed chemotherapy for colon cancer. Adjuvant radiation therapy completed on 02/04/2019. Screening breast MRI done 03/23/22 showed abnormality of right breast and biopsy showed invasive ductal carcinoma. Patient underwent bilateral mastectomy 05/22/2022 which showed invasive ductal carcinoma measuring 5 mm in the right breast, grade 2/3, negative margins, no cancer in 8 axillary sentinel nodes. 3 nodes removed in left breast which were negative. Per medical oncologist note on 10/25/22: postsurgical changes of bilateral mastectomy, with a large fluid collection in the left chest wall likely a seroma . Also, per medical oncologists note: No evidence of cancer recurrence in chest wall. She has lymphedema in the left infraclavicular area causing some fullness. No discrete mass in that area . Patient reports fluid in left side of chest that she feels is traveling to right side. Patient states left side has always been tighter than the right side. L side has recently gotten a lot tighter. After lumpectomy in 2019 patient had swelling in left chest and left arm but it has recently gotten worse. She reports some pain in left arm underneath/below armpit. History of Present Condition Date of onset: 2018 after lumpectomy. More severe about 1 month ago Date of surgery: 2018-left breast lumpectomy and hysterectomy, 05/2022 bilateral mastectomy Etiology of swelling: breast CA Duration of swelling: about 4 years Effect of elevation: elevating both arms helps alleviate some discomfort Cancer Treatment: left lumpectomy followed by radiation and chemo; bilateral mastectomy Compression history: after mastectomy patient wore compression bra Wounds: none History of DVT: PE, DVT in right leg on 05/28/18 after lumpectomy History of cellulitis: none History of CHF: none History of CVI: none History of CVA: TIA History of Diabetes: yes, controlled Diuretics: none History of Renal Dysfunction: yes, controlled History of hyper or hypothyroidism: yes, both taking medicine: yes Infection history: none Therapy History: none Contraindications: no short neck Precautions: none Diagnostic Tests: none Concurrent Treatment: none Current Symptoms: L arm swelling, R arm tightness, chest swelling Pain Current pain ratin/10 At best pain ratin/10 At worst pain ratin/10 Location: middle of chest/strenum Exacerbating Factors: when moving around Fatigue: moderate Function Current Functional Deficits: putting arms above head is difficulty at times Prior Level of Function: independent with activities of daily living including household and community activities, driving, and all work-related responsibilities 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 Objective: Outcome Measures: Lymphedema Quality of Life Tool 45% impaired, quality of life score 7/10 with 10 being excellent Cognition: A&O x 4 Observation/Palpation/Skin Condition: Ulcerations none Contractures none Dryness none Skin Temperature normal Hyperpigmentation/hemosiderin na Hyperkeratosis na Papillomas none Fibrosis negative Lymphorrhea none Edema yes Pitting No pitting [place] none Fungal Infection None Infections none Skin Color Changes Varicose veins none none Axillary Cording None palpated or seen Other Lesions none Stemmer Sign Negative Patient has a pocket of fluid on left side of chest. Patient states there was more complications with left side after surgery such as the drain tubing was attached to a nerve. Scar Tissue: location: across chest , size 23 cm on both sides of chest, type of scar: normal healing, texture: smooth with mild firmness, presence of adhesions: none, scar mobility: pliable Strength: MMT shoulder flexion 4-/5 bilateral AROM: Shoulder flexion R 135 degrees L 126 degrees Balance: good Upper Extremity Limb Measurements (measured from tip of 3rd digit): Right Left Difference 10 cm 19.6 cm 19.4 cm cm Webspace 20.6 cm 21.2 cm cm 20 cm 18.7 cm 18.1 cm cm 30 cm 25.4 cm 25 cm cm 40 cm 30.7 cm 30.1 cm cm Elbow 30.5 cm 33.2 cm L UE 2.7 cm > 50 cm 37 cm 39.3 cm L UE 2.3 cm > 60 cm 43.1 cm 43 cm cm Limb Volumes: R LE 143.7 ml; L LE 146.1 ml; L UE 2.4 ml > R UE Sensation: numbness from axilla to axilla across chest Treatment Provided: Discussed plan with patient. CDT protocols and a lymphedema start of care packet have been issued. Extensive education on the lymphatic system, infection s/s, CDT phase 1 vs phase 2, and bandaging vs velcro compression. Discussed compression pump. Tactile Medical brochure issued. Assessment: Therapy Impression: This patient presents with Stage I lymphedema of moderate severity. The etiology of the lymphedema is likely breast CA s/p lumpectomy, radiation and bilateral mastectomy Impairments: bilateral arm tightness, chest swelling, L UE swelling Activity limitations/participation restrictions: none Assistance/modification of tasks to complete evaluation (none/minimal- moderate/significant): none Barriers to therapy: none Barriers to learning: none Prognosis/Rehab Potential: This patient would benefit from partial CDT (Complete Decongestive Therapy)/skilled OT services to decrease UE swelling and tightness, increase UE ROM and strength to prevent further complications such as infections and to increase independence with ADLs/IADLs. Since L UE measurements are only slightly larger than R UE patient will not complete compression bandaging at this time but compression sleeves will be ordered. MLD will be completed with self MLD mohit taught. STG to be met by 12/20/22 1. Patient verbalize and demonstrate understanding of lymphedema signs and symptoms 2. Patient verbalize and demonstrate understanding of lymphedema prevention techniques 3. Patient to complete bilateral UE strengthening exercises independent for HEP. 4. Patient to complete axillary web syndrome stretches independent for HEP. LTG to be met by 01/17/23 1. Patient to be independent with home program including: skin care, self- massage/use of advanced pneumatic pump, and home exercise program 2. Successful transition into bilateral UE compression garment (non custom if possible) 3. Patient will be independent with donning/doffing bilateral UE compression sleeves 4. Patient to report decreased pain in chest to 3/10 or better while completing exercises/home activities. Plan: Occupational Therapy Interventions: ther ex/proc. (59808)- exercise/strengthening/stretching; ther act (84804); manual therapy including MLD (10559); self care/home management training-self bandaging/self massage (39281); orthotics management and training/compression garment measurements (11596); compression pump assessment, home exercises program instruction, skin and nail care/risk of infectioneducation/wound care needs, family training, modalities as appropriate Next visits consider initiating: measure for bilateral arm sleeves (non custom if patient fits intosize), MLD for bilateral UE lymphedema utilizing AI anastomosis, UE ROM and strengthening exercises, axillary web syndrome stretches Recommendation in preparation for discharge: Advanced pneumatic pump, self manual lymphatic drainage (MLD), bilateral compression sleeves, UE exercises (strengthening and ROM) Frequency/Duration 2 times per week for 6-8 weeks (Patient only scheduled two appointments at this time. She is starting a new job December 05 and does not know her schedule) Certification Dates: From 11/22/22 To 01/17/23 Kassie Beltrán OT documented in this encounter Miscellaneous Notes * Addendum Note - Kassie Beltrán OT - 11/22/2022 9:15 AM CDTAddended by: KASSIE BELTRÁN on: 11/23/2022 08:25 AM Modules accepted: Orders documented in this encounter Plan of Treatment Not on file documented as of this encounter Visit Diagnoses Diagnosis Malignant 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, estrogen receptor negative (HCC) Lymphedema Other noninfectious lymphedema documented in this encounter Orders Outpatient Referral Count Last Ordered Date Fir st Ordered Date AMB REFERRAL ORDER TO OCCUPATIONAL THERAPY 1 11/22/2022 documented in this encounter Care Teams Licensed Certified Orthotist Relationship Specialty Start Date End Date Dat Benito DO [address] [place] [address] PCP - General Internal Medicine 09/28/21 Aft, Kianna Machado MD PhD [address] [place] [address] Surgeon Surgical Oncology 11/22/17 Santiago Gilbert MD [address] [place], [place] [id number] [employer] Machine Tender Gastroenterology 11/22/17 Abbi Ventura MD [address] [facility] [address] [place] [address] Medical Oncologist/Wad Lubricator Medical Oncology 12/03/18 Montse Thompson MD [address] [facility] [address] [place], [place] [id number] Consulting Physician Gynecologic Oncology 12/03/18 Lela Hardy MD PhD [address] [facility] [address] [place], [place] [id number] Radiation Oncologist Radiation Oncology 12/23/18 Trena Obando MD [address] [place], [place] [id number] Consulting Physician Neurology 09/18/21 documented as of this encounter
--- OUTSIDE RECORDS SUMMARY | 2024-04-24 13:36 | XMS_ITS | Encounter Summary ---
Author Organization [facility] Healthcare Address [address] [place] [address] Care Team Providers Care Psychologist Developmental Name Role Phone Aft, Kianna Machado MD PhD Unavailable [phone] Santiago Gilbert MD Unavailable [phone] Abbi Ventura MD Unavailable Montse Thompson MD Unavailable [phone] Lela Hardy MD PhD Unavailable [phone] Trena Obando MD Unavailable [phone] Dat Benito DO Primary Care Provider [phone] Encounter Details Date Type Department Care Team (Late st Contact Info) Description 07/04/2022 12:45 PM QUALITY FACILITATOR Lab [address] [address] Malignant 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, 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) (HCC); Malignant neoplasm of upper-inner quadrant of right female breast, unspecified estrogen receptor status (HCC); Malignant neoplasm of descending colon (CMS/HCC) [...] on file 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 QUALITY FACILITATOR Gender Identity Not on file Sexual Orientation Not on file documented as of this encounter Plan of Treatment Not on file documented as of this encounter Procedures Procedure Name Priority Date/Time Associated Diagnosis Comments EGFR Routine 07/04/2022 12:41 PM QUALITY FACILITATOR Malignant 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, 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) (HCC) DIFFERENTIAL AUTO Routine 07/04/2022 12: 41 PM QUALITY FACILITATOR Malignant 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, 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) (HCC) CBC WITH AUTO DIFFERENTIAL Routine 07/04/2022 12:41 PM QUALITY FACILITATOR Malignant 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, 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) (HCC) CA 125 Routine 07/04/2022 12:41 PM QUALITY FACILITATOR Malignant neoplasm of upper-inner quadrant of right female breast, unspecified estrogen receptor status (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) CEA Routine 07/04/2022 12:41 PM QUALITY FACILITATOR Malignant 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, 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) (HCC) COMPREHENSIVE METABOLIC PANEL Routine 07/04/2022 12:41 PM QUALITY FACILITATOR Malignant 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, 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) (HCC) documented in this encounter Results * (ABNORMAL) eGFR (07/04/2022 12:41 PM QUALITY FACILITATOR) eGFR 45(L) 90 - 130 mL/min/1. 73 m2 [facility] Comment: Interpretive Data Reference Interval Normal ?>/= [...] interpretive data was last reviewed 2021. Blood 07/04/2022 12:4 1 PM QUALITY FACILITATOR 07/04/2022 12:42 PM QUALITY FACILITATOR us Abbi Ventura MD LAB BLOOD ORDERABLES Final Resul t [facility] [place] [address] * Differential, auto (07/04/2022 12:41 PM QUALITY FACILITATOR) Neutrophil abs 5.4 1.7 - 6.5 K/cumm [facility] Comment:Testing performed by : [facility], [address] [place] [address] Imm gran abs 0.0 0.0 - 0.1 K/cumm [facility] Lymphocyte abs 1.5 0.8 - 3.3 K/cumm [facility] Monocyte abs 0.5 0.2 - 0.8 K/cumm [facility] Eosinophil abs 0.4 0.0 - 0.5 K/cumm [facility] Basophil abs 0.1 0.0 - 0.1 K/cumm [facility] Neutrophil pct 68.5 % [facility] Comment: Interpretive Data Percent cell count reference ranges are not reported, since discordance with absolute values may lead to misinterpretation of CBC data. Current Interpretive Data was last revised on 2017. Imm gran pct 0.4 % [facility] Comment: Interpretive Data Percent cell count reference ranges are not reported, since discordance with absolute values may lead to misinterpretation of CBC data. Current Interpretive Data was last revised on 2017. Lymphocyte pct 18.4 % [facility] Comment: Interpretive Data Percent cell count reference ranges are not reported, since discordance with absolute values may lead to misinterpretation of CBC data. Current Interpretive Data was last revised on 2017. Monocyte pct 6.6 % [facility] Comment: Interpretive Data Percent cell count reference ranges are not reported, since discordance with absolute values may lead to misinterpretation of CBC data. Current Interpretive Data was last revised on 2017. Eosinophil pct 5.2 % [facility] Comment: Interpretive Data Percent cell count reference ranges are not reported, since discordance with absolute values may lead to misinterpretation of CBC data. Current Interpretive Data was last revised on 2017. Basophil pct 0.9 % [facility] Comment: Interpretive Data Percent cell count reference ranges are not reported, since discordance with absolute values may lead to misinterpretation of CBC data. Current Interpretive Data was last revised on 2017. Blood 07/04/2022 12:4 1 PM QUALITY FACILITATOR 07/04/2022 12:42 PM QUALITY FACILITATOR us Abbi Ventura MD LAB BLOOD ORDERABLES Final Resul t [facility] [place] [address] * CA 125 (07/04/2022 12:41 PM QUALITY FACILITATOR) CA 125 ag 10.5 0.0 - 38.1 units/mL [facility] Comment: Interpretive Data The Bo CA 125 assay procedure was used. Results from different manufacturers or methods may not be comparable. Serial testing should be performed using the same method. Blood 07/04/2022 12:4 1 PM QUALITY FACILITATOR 07/04/2022 1:52 PM QUALITY FACILITATOR Abbi Ventura MD LAB BLOOD ORDERABLES Final Resul t Performing Organization Address [facility] [[email or web address]] [place] [address] * CEA (07/04/2022 12:41 PM QUALITY FACILITATOR) Pathologist [facility] CEA 1.6 <=5.0 ng/mL [facility] Comment: Interpretive Data: Reference Range: Non-Smokers: 0.0 ? 5.0 ng/mL Smokers: 0.0 ? 6.5 ng/mL The Bo CEA assay procedure was used. Results from different manufacturers or methods may not be comparable. Serial testing should be performed using the same method. Current interpretive data was last revised 2021. Blood 07/04/2022 12:4 1 PM QUALITY FACILITATOR 07/04/2022 1:52 PM QUALITY FACILITATOR Abbi Ventura MD LAB BLOOD ORDERABLES Final Resul t Performing Organization Address [facility] [[email or web address]] de Phone Number [facility] [place] [address] * (ABNORMAL) Comprehensive metabolic panel (07/04/2022 12:41 PM QUALITY FACILITATOR) Sodium 143 135 - 145 mmol/L [facility] Comment:Testing performed by : [facility], [address] [place] [address] Potassium, pl 4.8 3.3 - 4.9 mmol/L [facility] Chloride 109 97 - 110 mmol/L [facility] CO2 28 22 - 32 mmol/L [facility] Anion gap 6 2 - 15 mmol/L [facility] BUN 16 8 - 25 mg/dL [facility] Creatinine 1.32(H) 0.60 - 1.10 mg/dL [facility] Glucose 158 70 - 199 mg/dL [facility] Comment: Interpretive Data Fasting glucose >/= 126 [...] interpretive data was last revised 2022. Calcium 9.6 8.5 - 10.3 mg/dL [facility] Bilirubin, total 0.3 0.1 - 1.2 mg/dL [facility] Protein, pl 7.0 6.5 - 8.5 g/dL [facility] Albumin 4.3 3.5 - 5.0 g/dL [facility] Alk phos 98 40 - 130 Units/L [facility] ALT 13 7 - 45 Units/L [facility] AST 16 10 - 45 Units/L [facility] Blood 07/04/2022 12:4 1 PM QUALITY FACILITATOR 07/04/2022 12:42 PM QUALITY FACILITATOR us Abbi Ventura MD LAB BLOOD ORDERABLES Final Resul t [facility] Department [place] [address] * (ABNORMAL) CBC with auto differential (07/04/2022 12:41 PM QUALITY FACILITATOR) Pathologist [facility] WBC 7.9 3.8 - 9.9 K/cumm [facility] Comment:Testing performed by : [facility], [address] [place] [address] Hgb 11.8(L) 11.9 - 15.5 g/dL [facility] Comment:Testing performed by : [address], [place] [address] Hct 37.3 35.6 - 45.5 % [facility] Comment:Testing performed by : [facility], [address] [place] [address] Plt 199 150 - 400 K/cumm [facility] Comment:Testing performed by : [facility], [address] [place] [address] MPV 9.4 9.1 - 12.3 fL [facility] RBC 4.04 3.90 - 5.20 M/cumm [facility] MCV 92.3 81.3 - 96.4 fL [facility] MCH 29.2 27.1 - 33.3 pg [facility] MCHC 31.6(L) 32.3 - 35.7 g/dL [facility] RDW CV 13.4 11.1 - 14.9 % [facility] RDW SD 45.7 35.7 - 48.1 fL [facility] NRBC abs 0.00 0.00 - 0.01 K/cumm [facility] Blood 07/04/2022 12:4 1 PM QUALITY FACILITATOR 07/04/2022 12:42 PM QUALITY FACILITATOR us Abbi Ventura MD LAB BLOOD ORDERABLES Final Resul t [facility] [place] [address] documented in this encounter Visit Diagnoses Diagnosis Malignant neoplasm of upper-inner quadrant of right female breast, unspecified estrogen receptor status (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) Malignant neoplasm of descending colon documented in this encounter Care Teams Psychologist Developmental Relationship Specialty Start Date End Date Dat Benito DO [address] [place] [address] PCP - General Internal Medicine 09/28/21 Aft, Kianna Machado MD PhD [address] [place] [address] Surgeon Surgical Oncology 11/22/17 Santiago Gilbert MD [address] [place] [address] Multiple Drill Operator Gastroenterology 11/22/17 Abbi Ventura MD [address] [facility] [address] [place] [address] Medical Oncologist/Cash Shortage Investigator Medical Oncology 12/03/18 Montse Thompson MD [address] [facility] [address] [place] [address] Consulting Physician Gynecologic Oncology 12/03/18 Lela Hardy MD PhD [address] [facility] [address] [place] [address] Radiation Oncologist Radiation Oncology 12/23/18 Trena Obando MD [address] [place], [place] [address] Consulting Physician Neurology 09/18/21 documented as of this encounter
--- OUTSIDE RECORDS SUMMARY | 2024-04-24 13:36 | XMS_ITS | Encounter Summary ---
Author Organization [facility] Address [address] [place] [address] Phone Care Team Providers Care Social Work Coordinator Name Role Phone Aft, Kianna Machado MD PhD Unavailable [phone] Santiago Gilbert MD Unavailable [phone] Abbi Ventura MD Unavailable Montse Thompson MD Unavailable [phone] Lela Hardy MD PhD Unavailable [phone] Trena Obando MD Unavailable [phone] Dat Benito DO Primary Care Provider [phone] Encounter Details Date Type Department Care Team (Late st Contact Info) Description 09/04/2022 Telephone [facility] [address] [place] [id number] Rosa Alcantar, Rashad Social History Tobacco Use Types Packs/Day Years [...] on file 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 Pt stated she spoke with the team because she has another appt in the same day and they told herto just call us if she would be running behind a bit. Pt will call with any further questions or concerns documented in this encounter Plan of Treatment Not on file documented as of this encounter Visit Diagnoses Not on filedocumented in this encounter Care Teams Social Work Coordinator Relationship Specialty Start Date End Date Dat Benito DO [address] [place] [address] PCP - General Internal Medicine 09/28/21 Aft, Kianna Machado MD PhD [address] [place] [address] Surgeon Surgical Oncology 11/22/17 Santiago Gilbert MD [address] [place] [address] Car Body Designer Gastroenterology 11/22/17 Abbi Ventura MD [address] [place] [address] [address] [place] [address] Medical Oncologist/Gold Marker Medical Oncology 12/03/18 Montse Thompson MD [address] [facility] [address] [place] [address] Consulting Physician Gynecologic Oncology 12/03/18 Lela Hardy MD PhD [address] [facility] [address] [place] [address] Radiation Oncologist Radiation Oncology 12/23/18 Trena Obando MD [facility] [address] [place] [address] Consulting Physician Neurology 09/18/21 documented as of this encounter
--- OUTSIDE RECORDS SUMMARY | 2024-04-24 13:36 | XMS_ITS | Encounter Summary ---
Author Organization [facility] Address [address] [place] [address] Phone Care Team Providers Care Assistant Portfolio Manager Name Role Phone Aft, Kianna Machado MD PhD Unavailable [phone] Santiago Gilbert MD Unavailable [phone] Abbi Ventura MD Unavailable Montse Thompson MD Unavailable [phone] Lela Hardy MD PhD Unavailable [phone] Trena Obando MD Unavailable [phone] Dat Benito DO Primary Care Provider [phone] Encounter Details Date Type Department Care Team (Late st Contact Info) Description 10/25/2022 3:00 PM CDT Lab [facility] Oncology [address] [place] [address] Malignant neoplasm of upper-inner quadrant of left [...] on file 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 Gender Identity Not on file Sexual Orientation Not on file documented as of this encounter Plan of Treatment Not on file documented as of this encounter Visit Diagnoses Diagnosis Malignant 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, estrogen receptor negative (HCC) documented in this encounter Orders Appointment Requests Count Last Ordered Date Fi rst Ordered Date ONCBCN LAB APPOINTMENT 1 10/25/2022 documented in this encounter Care Teams Assistant Portfolio Manager Relationship Specialty Start Date End Date Dat Benito DO [address] [place] [address] PCP - General Internal Medicine 09/28/21 Aft, Kianna Machado MD PhD [address] [place] [address] Surgeon Surgical Oncology 11/22/17 Santiago Gilbert MD [address] [place] [address] Field Interviewer Gastroenterology 11/22/17 [facility]bi [facility]ura MD [facility] [place] [address] Medical Oncologist/Pipe Turner Medical Oncology 12/03/18 Montse Thompson MD [address] [place] [address] Consulting Physician Gynecologic Oncology 12/03/18 Lela Hardy MD PhD [address] [place] [address] Radiation Oncologist Radiation Oncology 12/23/18 Trena Obando MD [address] [place] [address] Consulting Physician Neurology 09/18/21 documented as of this encounter
--- OUTSIDE RECORDS SUMMARY | 2024-04-24 13:36 | XMS_ITS | Encounter Summary ---
Author Organization [facility] Healthcare Address [address] [place] [address] Care Team Providers Care Bench Inspector Name Role Phone Aft, Kianna Machado MD PhD Unavailable [phone] Santiago Gilbert MD Unavailable [phone] Abbi Ventura MD Unavailable Montse Thompson MD Unavailable [phone] Lela Hardy MD PhD Unavailable [phone] Trena Obando MD Unavailable [phone] Dat Benito DO Primary Care Provider [phone] Encounter Details Date Type Department Care Team (Late st Contact Info) Description 10/25/2022 3:15 PM CDT Lab [address] [address] Malignant neoplasm of upper-inner quadrant [...] on file 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 Gender Identity Not on file Sexual Orientation Not on file documented as of this encounter Plan of Treatment Not on file documented as of this encounter Procedures Procedure Name Priority Date/Time Associated Diagnosis Comments EGFR Routine 10/25/2022 3:04 PM CDT Malignant 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, estrogen receptor negative (HCC) DIFFERENTIAL AUTO Routine 10/25/2022 3:0 4 PM CDT Malignant 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, estrogen receptor negative (HCC) CBC WITH AUTO DIFFERENTIAL Routine 10/25/2022 3:04 PM CDT Malignant 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, estrogen receptor negative (HCC) CA 125 Routine 10/25/2022 3:04 PM CDT Malignant 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, estrogen receptor negative (HCC) CEA Routine 10/25/2022 3:04 PM CDT Malignant 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, estrogen receptor negative (HCC) COMPREHENSIVE METABOLIC PANEL Routine 10/25/2022 3:04 PM CDT Malignant 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, estrogen receptor negative (HCC) documented in this encounter Results * (ABNORMAL) eGFR (10/25/2022 3:04 PM CDT) eGFR 39(L) 90 - 130 mL/min/1. 73 m2 [facility] Comment: Interpretive Data Reference Interval Normal ?>/= [...] interpretive data was last reviewed 2021. Blood 10/25/2022 3:04 PM CDT 10/25/2022 3:04 PM CDT us Abbi Ventura MD LAB BLOOD ORDERABLES Final Resul t [facility] [place] [address] * (ABNORMAL) Differential, auto (10/25/2022 3:04 PM CDT) Neutrophil abs 6.6(H) 1.7 - 6.5 K/cumm [facility] Comment:Testing performed by : [facility], [address] [place] [address] Imm gran abs 0.0 0.0 - 0.1 K/cumm [facility] Lymphocyte abs 1.6 0.8 - 3.3 K/cumm [facility] Monocyte abs 0.5 0.2 - 0.8 K/cumm [facility] Eosinophil abs 0.4 0.0 - 0.5 K/cumm [facility] Basophil abs 0.1 0.0 - 0.1 K/cumm [facility] Neutrophil pct 71.7 % [facility] Comment: Interpretive Data Percent cell count reference ranges are not reported, since discordance with absolute values may lead to misinterpretation of CBC data. Current Interpretive Data was last revised on 2017. Imm gran pct 0.1 % [facility] Comment: Interpretive Data Percent cell count reference ranges are not reported, since discordance with absolute values may lead to misinterpretation of CBC data. Current Interpretive Data was last revised on 2017. Lymphocyte pct 17.6 % [facility] Comment: Interpretive Data Percent cell count reference ranges are not reported, since discordance with absolute values may lead to misinterpretation of CBC data. Current Interpretive Data was last revised on 2017. Monocyte pct 5.6 % [facility] Comment: Interpretive Data Percent cell count reference ranges are not reported, since discordance with absolute values may lead to misinterpretation of CBC data. Current Interpretive Data was last revised on 2017. Eosinophil pct 4.1 % [facility] Comment: Interpretive Data Percent cell count reference ranges are not reported, since discordance with absolute values may lead to misinterpretation of CBC data. Current Interpretive Data was last revised on 2017. Basophil pct 0.9 % [facility] Comment: Interpretive Data Percent cell count reference ranges are not reported, since discordance with absolute values may lead to misinterpretation of CBC data. Current Interpretive Data was last revised on 2017. Blood 10/25/2022 3:04 PM CDT 10/25/2022 3:04 PM CDT us Abbi Ventura MD LAB BLOOD ORDERABLES Final Resul t [facility] [place] [address] * CBC with auto differential (10/25/2022 3:04 PM CDT) WBC 9.2 3.8 - 9.9 K/cumm [facility] Comment:Testing performed by : [facility], [address] [place] [address] Hgb 12.5 11.9 - 15.5 g/dL [facility] Comment:Testing performed by : [facility], [address] [place] [address] Hct 38.7 35.6 - 45.5 % [facility] Comment:Testing performed by : [facility], [address] [place] [address] Plt 174 150 - 400 K/cumm [facility] Comment:Testing performed by : [facility], [address] [place] [address] MPV 9.9 9.1 - 12.3 fL [facility] RBC 4.32 3.90 - 5.20 M/cumm [facility] MCV 89.6 81.3 - 96.4 fL [facility] MCH 28.9 27.1 - 33.3 pg [facility] MCHC 32.3 32.3 - 35.7 g/dL [facility] RDW CV 13.6 11.1 - 14.9 % [facility] RDW SD 44.6 35.7 - 48.1 fL [facility] NRBC abs 0.00 0.00 - 0.01 K/cumm [facility] Blood 10/25/2022 3:04 PM CDT 10/25/2022 3:04 PM CDT us Abbi Ventura MD LAB BLOOD ORDERABLES Final Resul t [facility] [place] [address] * CEA (10/25/2022 3:04 PM CDT) Pathologist [facility] CEA 1.0 <=5.0 ng/mL [facility] Comment: Interpretive Data: Reference Range: Non-Smokers: 0.0 ? 5.0 ng/mL Smokers: 0.0 ? 6.5 ng/mL The Bo CEA assay procedure was used. Results from different manufacturers or methods may not be comparable. Serial testing should be performed using the same method. Current interpretive data was last revised 2021. Blood 10/25/2022 3:04 PM CDT 10/25/2022 6:29 PM CDT us Abbi Ventura MD LAB BLOOD ORDERABLES Final Resul t [facility] [place] [address] * (ABNORMAL) Comprehensive metabolic panel (10/25/2022 3:04 PM CDT) Sodium 139 135 - 145 mmol/L [facility] Comment:Testing performed by : [facility], [address] [place] [address] Potassium, pl 4.1 3.3 - 4.9 mmol/L [facility] Chloride 108 97 - 110 mmol/L [facility] CO2 24 22 - 32 mmol/L [facility] Anion gap 7 2 - 15 mmol/L [facility] BUN 17 6 - 25 mg/dL [facility] Creatinine 1.47(H) 0.60 - 1.10 mg/dL [facility] Glucose 119 70 - 199 mg/dL [facility] Comment: Interpretive Data Fasting glucose >/= [...] interpretive data was last revised 2022. Calcium 9.4 8.5 - 10.3 mg/dL [facility] Bilirubin, total 0.4 0.1 - 1.2 mg/dL [facility] Protein, pl 7.0 6.5 - 8.5 g/dL [facility] Albumin 4.3 3.5 - 5.0 g/dL [facility] Alk phos 102 40 - 130 Units/L [facility] ALT 12 7 - 45 Units/L [facility] AST 18 10 - 45 Units/L [facility] Blood 10/25/2022 3:04 PM CDT 10/25/2022 3:04 PM CDT Abbi Ventura MD LAB BLOOD ORDERABLES Final Resul t Performing Organization Address [facility] Co de Phone Number [facility] [place] [address] * CA 125 (10/25/2022 3:04 PM CDT) CA 125 ag 8.0 0.0 - 38.1 units/mL [facility] Comment: Interpretive Data The Bo CA 125 assay procedure was used. Results from different manufacturers or methods may not be comparable. Serial testing should be performed using the same method. Blood 10/25/2022 3:04 PM CDT 10/25/2022 6:29 PM CDT Abbi Ventura MD LAB BLOOD ORDERABLES Final Resul t Performing Organization Address [facility] Co de Phone Number [facility] [place] [address] documented in this encounter Visit Diagnoses Diagnosis Malignant 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, estrogen receptor negative (HCC) documented in this encounter Care Teams Bench Inspector Relationship Specialty Start Date End Date Dat Benito DO [address] [place] [address] PCP - General Internal Medicine 09/28/21 Aft, Kianna Machado MD PhD [address] [place] [address] Surgeon Surgical Oncology 11/22/17 Santiago Gilbert MD [address] [place] [address] Paper Rewinder Gastroenterology 11/22/17 Abbi Ventura MD [address] [place] [address] Medical Oncologist/Document Management Analyst Medical Oncology 12/03/18 Montse Thompson MD [address] [place] [address] Consulting Physician Gynecologic Oncology 12/03/18 Lela Hardy MD PhD [address] [place], [place] [address] Radiation Oncologist Radiation Oncology 12/23/18 Trena Obando MD [address] [place], [place] [address] Consulting Physician Neurology 09/18/21 documented as of this encounter
--- OUTSIDE RECORDS SUMMARY | 2024-04-24 13:36 | XMS_ITS | Encounter Summary ---
Author Organization [facility] Healthcare Address [address] [place] [address] Care Team Providers Care Business Unit Director Name Role Phone Aft, Kianna Machado MD PhD Unavailable [phone] Santiago Gilbert MD Unavailable Abbi Ventura MD Unavailable Montse Thompson MD Unavailable [phone] Lela Hardy MD PhD Unavailable [phone] Trena Obando MD Unavailable [phone] Dat Benito DO Primary Care Provider [phone] Reason for Referral * MRI/CAT/PET Scan (Routine) - Closed Specialty Diagnoses / Procedures [facility]erred To Contact Radiology Diagnoses Malignant 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, 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) Procedures CT Chest Abdomen Pelvis W Contrast Abbi Ventura MD [address] [facility] [address] [place] [address] Phone: tel: fax: [facility] Referral ID Status Reason Start Date Expiration Date Visits Re quested Visits Authorized [id number] Closed 10/25/2022 11/24/2023 1 1 Reason for Visit * MRI/CAT/PET Scan (Routine) - Closed Specialty Diagnoses / Procedures Referred By Vijaya t Referred To Contact Radiology Diagnoses Malignant 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, 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) Procedures CT Chest Abdomen Pelvis W Contrast Abbi Ventura MD [address] [facility] [address] [place] [address] Phone: tel: fax: [facility] Referral ID Status Reason Start Date Expiration Date Visits Re quested Visits Authorized [id number] Closed 10/25/2022 11/24/2023 1 1 Encounter Details Date Type Department Care Team (Latest Contact Info) Description 01/24/2023 11:03 AM CDT - 01/24/2023 11:59 PM CDT Hospital Encounter [facility] Radiology at [facility] [address] [place] [address] Malignant 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, estrogen receptor negative (HCC); 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) Discharge Disposition: Discharge to home or [...] file 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 Gender Identity Not on file Sexual [...] Priority Date/Time Associated Diagnosis Comments CT CHEST ABDOMEN PELVIS W CONTRAST Schedule STARR, Read STARR (Appt Today, Awaiting Results) 01/24/2023 11:34 AM CDT Malignant 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, 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 No evidence of recurrent or metastatic disease within the chest, abdomen, or pelvis. 2. Changes of bilateral mastectomy with decrease in size of the left anterior chest wall seroma and resolution of the right axillary seroma. Electronically signed by: Corwin Cleveland M.D. Narrative 01/24/2023 12:11 PM CDT EXAMINATION: CT CHEST ABDOMEN PELVIS W CONTRAST HISTORY: 67 years-old Female with breast and colon cancer. Restaging evaluation.. TECHNIQUE: Transaxial computed tomographic images of the chest, abdomen, and pelvis were obtained after the uneventful administration of 100 mL Optiray 350 according to standard protocol. COMPARISON: CT dated 07/03/[address] of the abdomen and pelvis dated 11/23/2022. FINDINGS: Heart is normal in size. No pericardial effusion. No central pulmonary embolism. No mediastinal, axillary, or supraclavicular lymphadenopathy. Interval resolution of the previously seen seen collection in the right axilla, compatible with a result seroma. There are changes of bilateral mastectomy. The left chest wall seroma has decreased in size, now measuring 3.7 cm thickness, previously up to 5.4 cm in thickness. No suspicious nodularity at either mastectomy site. No focal consolidation or pulmonary edema. No pleural effusion or pneumothorax. No suspicious nodule. Unchanged ill-defined area of low-attenuation is central liver (table position -804), most consistent with focal steatosis, previously characterized on MRI dated 01/27/2022 there is an additional area of fatty infiltration adjacent to the falciform. No suspicious hepatic lesion. Portal vein and hepatic veins are patent. Cholelithiasis without gallbladder distention or wall thickening. Pancreas is normal. No biliary duct dilatation. No focal splenic lesion. Adrenal glands are normal. No suspicious renal lesion or hydronephrosis. There is mild atrophy of the left kidney with findings suggestive of left renal artery stenosis. There is ectasia of the abdominal aorta without aneurysm, measuring up to 2.9 cm. No distended or thickened loops of small or large bowel. Changes of partial colectomy are stable. No abdominal or pelvic lymphadenopathy. Uterus is surgically absent. No adnexal masses. Bone windows demonstrate no suspicious osseous lesions. Procedure Note Corwin Cleveland MD - 01/24/2023 EXAMINATION: CT CHEST ABDOMEN PELVIS W CONTRAST HISTORY: 67 years-old Female with breast and colon cancer. Restaging evaluation.. TECHNIQUE: Transaxial computed tomographic images of the chest, abdomen, and pelvis were obtained after the uneventful administration of 100 mL Optiray 350 according to standard protocol. COMPARISON: CT dated 07/03/[address] of the abdomen and pelvis dated 11/23/2022. FINDINGS: Heart is normal in size. No pericardial effusion. No central pulmonary embolism. No mediastinal, axillary, or supraclavicular lymphadenopathy. Interval resolution of the previously seen seen collection in the right axilla, compatible with a result seroma. There are changes of bilateral mastectomy. The left chest wall seroma has decreased in size, now measuring 3.7 cm thickness, previously up to 5.4 cm in thickness. No suspicious nodularity at either mastectomy site. No focal consolidation or pulmonary edema. No pleural effusion or pneumothorax. No suspicious nodule. Unchanged ill-defined area of low-attenuation is central liver (table position -804), most consistent with focal steatosis, previously characterized on MRI dated 01/27/2022 there is an additional area of fatty infiltration adjacent to the falciform. No suspicious hepatic lesion. Portal vein and hepatic veins are patent. Cholelithiasis without gallbladder distention or wall thickening. Pancreas is normal. No biliary duct dilatation. No focal splenic lesion. Adrenal glands are normal. No suspicious renal lesion or hydronephrosis. There is mild atrophy of the left kidney with findings suggestive of left renal artery stenosis. There is ectasia of the abdominal aorta without aneurysm, measuring up to 2.9 cm. No distended or thickened loops of small or large bowel. Changes of partial colectomy are stable. No abdominal or pelvic lymphadenopathy. Uterus is surgically absent. No adnexal masses. Bone windows demonstrate no suspicious osseous lesions. IMPRESSION: 1. No evidence of recurrent or metastatic disease within the chest, abdomen, or pelvis. 2. Changes of bilateral mastectomy with decrease in size of the left anterior chest wall seroma and resolution of the right axillary seroma. Electronically signed by: Corwin Cleveland M.D. us Abbi Ventura MD IMG CT PROCEDURES Final Result * (ABNORMAL) POCT creatinine (01/24/2023 11:15 AM CDT) Creatinine POC 1.5(H) 0.6 - 1.1 mg/dL [facility] Blood 01/24/2023 11:1 5 AM CDT 01/24/2023 11:15 AM CDT us Abbi Ventura MD LAB POCT ORDERABLES - DEVICE Fin al Result 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) Malignant neoplasm of descending colon documented in this encounter Administered Medications Inactive Administered Medications - up to 3 most recent administrations Medication Order MAR Action Action Date Dose Rate Site ioversoL (OPTIRAY 350) injection 79 mL 79 mL, intravenous, Once in imaging, contrast, Starting on Bonnie 01/24/23 at 1125, For 1 dose Contrast Given 01/24/2023 11:26 AM CDT 79 mL documented in this encounter Orders Medications Ordered That [place] ht Not Have Been Administered Count Last Ordered Date First Ordered Date ioversoL (OPTIRAY 350) injection 79 mL 1 documented in this encounter Care Teams Business Unit Director Relationship Specialty Start Date End Date Dat Benito DO [address] [place] [address] PCP - General Internal Medicine 09/28/21 Aft, Kianna Machado MD PhD [address] [place] [address] Surgeon Surgical Oncology 11/22/17 Santiago Gilbert MD [address] [place] [address] Field Director Gastroenterology 11/22/17 [facility] [place] [address] Medical Oncologist/Deli Clerk Medical Oncology 12/03/18 Montse Thompson MD [address] [place] [address] Consulting Physician Gynecologic Oncology 12/03/18 Lela Hardy MD PhD [address] [place] [address] Radiation Oncologist Radiation Oncology 12/23/18 Trena Obando MD [address] [place] [address] Consulting Physician Neurology 09/18/21 documented as of this encounter
--- OUTSIDE RECORDS SUMMARY | 2024-04-24 13:36 | XMS_ITS | Encounter Summary ---
Author Organization [facility] Address [address] [facility] [address] [place] [address] Phone Care Team Providers Care Emergency Services Dispatcher Name Role Phone Aft, Tony Machado MD PhD Unavailable [phone] Santiago Gilbert MD Unavailable [phone] Birdie Ventura MD Unavailable Montse Thompson MD Unavailable [phone] Lela Hardy MD PhD Unavailable [phone] Trena Obando MD Unavailable Dat Benito DO Primary Care Provider [phone] Reason for Visit * Reason Comments Follow-up Encounter Details Date Type Department Care Team (Late st Contact Info) Description 10/29/2022 4:40 PM CDT Office Visit [facility] Obstetrics and Gynecology [address] [facility] Advanced Medicine 13th [place] [address] [place] [id number] Montse Thompson MD [address] [place] [phone] [place] [address] BRCA2 gene mutation positive in female (Primary Dx); Pelvic pressure in female Social History Tobacco Use Types Packs/Day Years [...] on file 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 Gender Identity Not on file Sexual Orientation Not on file documented as of this encounter Last Filed Vital Signs Vital Sign Reading Time Taken Comments Blood Pressure 134/81 10/29/2022 4:48 PM CDT Pulse 96 10/29/2022 4:48 PM CDT Temperature 36.3 ??C (97.4 ??F) 10/29/2022 4:48 PM CD T Respiratory Rate 16 10/29/2022 4:48 PM CDT Oxygen Saturation 97% 10/29/2022 4:48 PM CDT Inhaled Oxygen Concentration - - Weight 105.6 kg (232 lb 12.8 oz) 10/29/2022 4:48 PM CDT Height 173.3 cm (5' 8.23 ) 10/29/2022 4:48 PM CD T Body Mass Index 35.16 10/29/2022 4:48 PM CDT documented in this encounter Progress Notes * Montse Thompson MD - 10/29/2022 12:00 AM CDT PATIENT: ALEAH GERBER : 1955 FARHAT: 10/29/2022 REASON FOR VISIT: Surveillance for BRCA2 mutation. HISTORY OF PRESENT ILLNESS: Ms. 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 The patient had germline testing and was noted to be BRCA2 positive, and had a VUS, and BRIP1 and NBN. The patient's other testing showed no evidence of Grullon syndrome. The patient received chemotherapy of adjuvantFOLFOX and had an allergic reaction to oxaliplatin during cycle #6. The patient also required dose reduction. She completed all of her chemotherapy, per her report, of FOLFOX on 05/21/2018. The patient now has been on AC chemotherapy for breast cancer, which was started on 06/25/2018, and she believes that she completed her last cycle about 8 weeks ago. The patient is scheduled with Dr. Gay for surgical intervention of her breast cancer. The patient would like to try to coordinate surgical removal of her ovaries due this BRCA2 mutation. In the interim, the patient went on to have a CA-125 on 10/20/2018, which was 12.3. Her cytology from her Pap smear shows that she has epithelial cell abnormality, which shows rare atypical glandular cells, which are NOS. It is HPV negative. Of note, the patient does have a remote history of cryotherapy. The patient has not had routine Pap smears, however. The patient's pathology from 10/27/2018 showed that the 12 o'clock biopsy had no histopathologic abnormality. The ECC just showed some microglandular hyperplasia and squamous metaplasia. The endometrial biopsy was scant, but there was inactive endometrium. The patient did have an ultrasound performed on 10/31/2018 which showed she had a normal transabdominal and transvaginal sonogram of the uterus. It did show that both ovaries were unremarkable. Her uterus measured 4.3 x 2.7 x 2.5 cm with an endometrial stripe of 3 mm. The patient had a robotic-assisted total laparoscopic hysterectomy and bilateral salpingo-oophorectomy on 02/13/2019. 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 Otherwise, there was only adenomyosis noted in themyometrium and microglandular hyperplasia. Her washings were unremarkable. The patient presents today for routine surveillance. The patient does complain of nausea, for whichshe attributes to Ozempic, and this requires her to take Zofran for it. The patient does complain of some fatigue. The patient has pain where her ovaries used to be. She feels that there is a pelvic pressure that has been ongoing and progressively getting worse for the last 2 months. It now appearsthat it is all the time. She does not feel that it is painful and requires her to take any further pain medications. However, she did have this previously. Otherwise, the patient does complain of alternating diarrhea and constipation since she has started Ozempic. She has shortness of breath with ex ertion. The patient denies any pelvic pain. She does have some abdominal bloating with her constipation and diarrhea. PAST MEDICAL HISTORY/REVIEW OF SYSTEMS: Significant for that she had a double mastectomy in June 2022. Otherwise, there are no new updates from October 2018. PHYSICAL EXAMINATION: Vital Signs: Her blood pressure is 134/81, pulse is 96, respirations are 16. Her weight is 232 pounds, which is a decline of 2 pounds from her last visit. BMI of 35.2 kg/m??. General Appearance: The patient is a well-developed, well-nourished female in no acute distress. HEENT: Atraumatic, normocephalic, PERRLA, EOMI, EENT: Within normal limits. Neck is supple, withoutthyromegaly or JVD. LN Survey: No supraclavicular, inguinal, or femoral lymphadenopathy. Lungs: Clear to auscultation bilaterally. Heart: Regular rate and rhythm. Positive S1/S2. Breasts: Deferred. Back: No CVA or paraspinal tenderness. Abdomen: Soft, nontender, nondistended. Normoactive bowel sounds. She has well- healing robotic incisions. Extremities: No clubbing, cyanosis, or edema. Neurologic: The patient is awake, alert, and oriented x 3. Pelvic Exam: External genitalia: Within normal limits. Urethra: Without masses or tenderness. Urethral meatus: Without any lesions or prolapse. Bladder: No masses or tenderness. Vulva: Normal. Speculum Exam: There are no abnormalities noted. Bimanual: Cervix, uterus, and adnexa are surgically absent. No palpable masses, tenderness, or nodularity appreciated. Rectovaginal: Exam is confirmatory. Guaiac is negative. LABORATORY STUDIES: Her most recent CA-125, on 10/25/2022, was noted to be 8.0. ASSESSMENT AND PLAN: A 67-year-old female, status post a robotic-assisted total laparoscopic hysterectomy/bilateral salpingo-oophorectomy secondary to a BRCA2 mutation. 1. BRCA2 mutation: On physical examination, the patient has no evidence of recurrent disease, but based on her clinical symptoms of having persistent pelvic pressure that is worsening for the last 2 months, the patient will be sent for a CT scan of the abdomen and pelvis. 2. Cervical dysplasia: The patient did have a repeat Pap smear performed in September 2021, which was negative for squamous intraepithelial lesion and high-risk HPV negative. Therefore, she will need a repeat in September 2024. 3. Follow-up ideally will be in 1 year's time, unless the CT scan shows any necessity for intervention sooner. ELECTRONICALLY SIGNED - 10/31/2022 07:17 AM Montse Thompson M.D. Professor, Department of Obstetrics and Gynecology Director of Gynecological Oncology Clinical Research Division of Gynecologic Oncology [facility] [employer] [facility] [id number]/[id number]/#[id number] cc: BIRDIE VENTURA M.D. / TONY GAY MD / HUGO PENALOZA MD / / TRENA OBANDO MD / documented in this encounter Miscellaneous Notes * Treatment Plan - Montse Thompson MD - 10/29/2022 4:40 PM CDT Please schedule Aleah Gerber for the following: Requested Order Contrast Indication When CXR CT Chest, Abdomen, and Pelvis CT Abdomen and Pelvis x in next 1-2 weeks due to pelvic pressure x 2 months LEEP (during clinic hours) CRIMINALIST TECHNICIAN Ultrasound MRI Mammogram PET Initiate Survivoship Care Plan Surveillance Labs (CBC w/ Diff, CMP, Magnesium, CA125) Labwork: ca125 X in a year documented in this encounter Plan of Treatment Not on file documented as of this encounter Visit Diagnoses Diagnosis BRCA2 gene mutation positive in female- Primary Pelvic pressure in female documented in this encounter Care Teams Emergency Services Dispatcher Relationship Specialty Start Date End Date Dat Benito DO [address] [place] [address] PCP - General Internal Medicine 09/28/21 AftTony MD PhD [address] [place] [address] Surgeon Surgical Oncology 11/22/17 Santiago Gilbert MD [address] [place] [address] Corporate Compliance Manager Gastroenterology 11/22/17 Birdie Ventura MD [address] [facility] [address] [place] [address] Medical Oncologist/Poultry Service Technician Medical Oncology 12/03/18 Montse Thompson MD [address] [facility] [address] [place] [address] Consulting Physician Gynecologic Oncology 12/03/18 Lela Hardy MD PhD [address] [facility] [address] [place] [address] Radiation Oncologist Radiation Oncology 12/23/18 Trena Obando MD [address] [place] [address] Consulting Physician Neurology 09/18/21 documented as of this encounter
--- OUTSIDE RECORDS SUMMARY | 2024-04-24 13:36 | XMS_ITS | Encounter Summary ---
Author Organization [facility] Address [address] [place] [address] Phone Care Team Providers Care Personalization Specialist Name Role Phone Aft, Kianna Machado MD PhD Unavailable [phone] Santiago Gilbert MD Unavailable Abbi Ventura MD Unavailable Montse Thompson MD Unavailable [phone] Lela Hardy MD PhD Unavailable [phone] Trena Obando MD Unavailable [phone] Dat Benito DO Primary Care Provider [phone] Encounter Details Date Type Department Care Team (Late st Contact Info) Description 09/03/2022 Orders Only [facility] Surgery [address] [facility] Advanced Medicine 5th [place] [address] [place] [address] Cat Baez, RIDE MECHANIC [address] [place] [address] Social History Tobacco Use Types Packs/Day Years Used Date Smoking Tobacco: Former Cigarettes 1 42 1 3 - 2014 Smokeless Tobacco: [...] on file 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 Gender Identity Not on file Sexual Orientation Not on file documented as of this encounter Plan of Treatment Not on file documented as of this encounter Visit Diagnoses Not on filedocumented in this encounter Care Teams Personalization Specialist Relationship Specialty Start Date End Date Dat Benito DO [address] [place] [address] PCP - General Internal Medicine 09/28/21 AftKianna MD PhD [address] [place] [address] Surgeon Surgical Oncology 11/22/17 Santiago Gilbert MD [address] [place] [address] Rolled Gold Plater Gastroenterology 11/22/17 Abbi Ventura MD [address] [place] [address] Medical Oncologist/Hvac Manager Medical Oncology 12/03/18 Montse Thompson MD [address] [place] [address] Consulting Physician Gynecologic Oncology 12/03/18 Lela Hardy MD PhD [address] [place] [address] Radiation Oncologist Radiation Oncology 12/23/18 Trena Obando MD [address] [place] [address] Consulting Physician Neurology 09/18/21 documented as of this encounter
--- OUTSIDE RECORDS SUMMARY | 2024-04-24 13:36 | XMS_ITS | Encounter Summary ---
Author Organization [facility] Address [address] [place] [address] Phone Care Team Providers Care Data Center Technician Name Role Phone Aft, Kianna Machado MD PhD Unavailable [phone] Santiago Gilbert MD Unavailable Abbi Ventura MD Unavailable Montse Thompson MD Unavailable [phone] Lela Hardy MD PhD Unavailable [phone] Trena Obando MD Unavailable [phone] Dat Benito DO Primary Care Provider [phone] Encounter Details Date Type Department Care Team (Late st Contact Info) Description 07/09/2022 Orders Only [facility] Pulmonary [address] [facility] Advanced Medicine 8th [place] [address] [place] [address] Cristobal Dong MD [address] [place] [address] Social History Tobacco Use Types [...] on file 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 Gender Identity Not on file Sexual Orientation Not on file documented as of this encounter Ordered Prescriptions Prescription Sig Dispense Quantity Refills Last Filled Start Date End Date albuterol HFA (PROVENTIL HFA,VENTOLIN HFA,PROAIR HFA) 90 mcg/actuation inhaler Inhale 2 puffs every 6 (six) hours as needed for wheezing 1 each 5 07/09/2022 documented in this encounter Plan of Treatment Not on file documented as of this encounter Visit Diagnoses Not on filedocumented in this encounter Discontinued Medications Medication Sig Discontinue Reason Start Date End Da te albuterol HFA (PROVENTIL HFA,VENTOLIN HFA,PROAIR HFA) 90 mcg/actuation inhaler Inhale 2 puffs every 6 (six) hours as needed for wheezing Reorder 03/22/2021 07/09/2022 documented as of this encounter Care Teams Data Center Technician Relationship Specialty Start Date End Date Dat Benito DO [address] [place] [address] PCP - General Internal Medicine 09/28/21 Aft, Kianna Machado MD PhD [address] [place] [address] Surgeon Surgical Oncology 11/22/17 Santiago Gilbert MD [address] [place] [address] Muff Winder Gastroenterology 11/22/17 Abbi Ventura MD [address] [place] [address] [address] [place] [address] Medical Oncologist/Tax Auditor Medical Oncology 12/03/18 Montse Thompson MD [address] [facility] [address] [place], [place] [address] Consulting Physician Gynecologic Oncology 12/03/18 Lela Hardy MD PhD [address] [facility] [address] [place] [address] Radiation Oncologist Radiation Oncology 12/23/18 Trena Obando MD [address] [place], [place] [id number] Consulting Physician Neurology 09/18/21 documented as of this encounter
--- OUTSIDE RECORDS SUMMARY | 2024-04-24 13:36 | XMS_ITS | Encounter Summary ---
Author Organization [facility] Address [address] [place] [address] Phone Care Team Providers Care Twitchell Operator Name Role Phone Aft, Kianna Machado MD PhD Unavailable [phone] Santiago Gilbert MD Unavailable [phone] Abbi Ventura MD Unavailable Montse Thompson MD Unavailable [phone] Lela Hardy MD PhD Unavailable [phone] Trena Obando MD Unavailable [phone] Dat Benito DO Primary Care Provider [phone] Encounter Details Date Type Department Care Team (Late st Contact Info) Description 02/19/2023 Telephone [facility] Pulmonary [facility] Advanced Medicine 8th [place] [address] [place] [address] Adelina Morton, RN Social History Tobacco Use Types Packs/Day [...] on file 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 requested refill on Advair 500/50. Informed pt. that 1 refill can be given since we have not seen her since November 2021, and she can speak to her PCP to see if he can refill it after that. Verbalized understanding. documented in this encounter Plan of Treatment Not on file documented as of this encounter Visit Diagnoses Not on filedocumented in this encounter Care Teams Twitchell Operator Relationship Specialty Start Date End Date Dat Benito DO [address] [place] [address] PCP - General Internal Medicine 09/28/21 Aft, Kianna Machado MD PhD [address] [place] [address] Surgeon Surgical Oncology 11/22/17 Santiago Gilbert MD [address] [place] [address] Energy Director Gastroenterology 11/22/17 Abbi Ventura MD [address] [place], [place] [id number] Medical Oncologist/Tack Driller Medical Oncology 12/03/18 Montse Thompson MD [address] [place] [address] Consulting Physician Gynecologic Oncology 12/03/18 Lela Hardy MD PhD [address] [facility] [address] [place] [address] Radiation Oncologist Radiation Oncology 12/23/18 Trena Obando MD [address] [place] [address] Consulting Physician Neurology 09/18/21 documented as of this encounter
--- OUTSIDE RECORDS SUMMARY | 2024-04-24 13:36 | XMS_ITS | Encounter Summary ---
Author Organization [facility] Healthcare Address [address] [place] [address] Care Team Providers Care Social Work Nurse Name Role Phone Aft, Kianna Machado MD PhD Unavailable [phone] Santiago Gilbert MD Unavailable [phone] Abbi Ventura MD Unavailable Montse Thompson MD Unavailable [phone] Lela Hardy MD PhD Unavailable [phone] Trena Obando MD Unavailable [phone] Dat Benito DO Primary Care Provider [phone] Encounter Details Date Type Department Care Team (Late st Contact Info) Description 01/24/2023 1:15 PM CDT Lab [address] [address] Malignant neoplasm of upper-inner quadrant [...] on file 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 Gender Identity Not on file Sexual Orientation Not on file documented as of this encounter Plan of Treatment Not on file documented as of this encounter Procedures Procedure Name Priority Date/Time Associated Diagnosis Comments EGFR Routine 01/24/2023 1:08 PM CDT Malignant 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, estrogen receptor negative (HCC) DIFFERENTIAL AUTO Routine 01/24/2023 1:0 8 PM CDT Malignant 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, estrogen receptor negative (HCC) CBC WITH AUTO DIFFERENTIAL Routine 01/24/2023 1:08 PM CDT Malignant 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, estrogen receptor negative (HCC) CEA Routine 01/24/2023 1:08 PM CDT Malignant 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, estrogen receptor negative (HCC) COMPREHENSIVE METABOLIC PANEL Routine 01/24/2023 1:08 PM CDT Malignant 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, estrogen receptor negative (HCC) documented in this encounter Results * (ABNORMAL) eGFR (01/24/2023 1:08 PM CDT) eGFR 40(L) 90 - 130 mL/min/1. 73 m2 [facility] Comment: Interpretive Data Reference Interval Normal ?>/= [...] interpretive data was last reviewed 2021. Blood 01/24/2023 1:08 PM CDT 01/24/2023 1:09 PM CDT us Abbi Ventura MD LAB BLOOD ORDERABLES Final Resul t [facility] [place] [address] * (ABNORMAL) Differential, auto (01/24/2023 1:08 PM CDT) Neutrophil abs 7.2(H) 1.7 - 6.5 K/cumm [facility] Comment:Testing performed by : [facility], [address] [place] [address] Imm gran abs 0.0 0.0 - 0.1 K/cumm [facility] Lymphocyte abs 1.6 0.8 - 3.3 K/cumm [facility] Monocyte abs 0.5 0.2 - 0.8 K/cumm [facility] Eosinophil abs 0.4 0.0 - 0.5 K/cumm [facility] Basophil abs 0.1 0.0 - 0.1 K/cumm [facility] Neutrophil pct 74.1 % [facility] Comment: Interpretive Data Percent cell count reference ranges are not reported, since discordance with absolute values may lead to misinterpretation of CBC data. Current Interpretive Data was last revised on 2017. Imm gran pct 0.2 % [facility] Comment: Interpretive Data Percent cell count reference ranges are not reported, since discordance with absolute values may lead to misinterpretation of CBC data. Current Interpretive Data was last revised on 2017. Lymphocyte pct 15.9 % [facility] Comment: Interpretive Data Percent cell count reference ranges are not reported, since discordance with absolute values may lead to misinterpretation of CBC data. Current Interpretive Data was last revised on 2017. Monocyte pct 5.4 % [facility] Comment: Interpretive Data Percent cell count reference ranges are not reported, since discordance with absolute values may lead to misinterpretation of CBC data. Current Interpretive Data was last revised on 2017. Eosinophil pct 3.7 % [facility] Comment: Interpretive Data Percent cell count reference ranges are not reported, since discordance with absolute values may lead to misinterpretation of CBC data. Current Interpretive Data was last revised on 2017. Basophil pct 0.7 % [facility] Comment: Interpretive Data Percent cell count reference ranges are not reported, since discordance with absolute values may lead to misinterpretation of CBC data. Current Interpretive Data was last revised on 2017. Blood 01/24/2023 1:08 PM CDT 01/24/2023 1:09 PM CDT us Abbi Ventura MD LAB BLOOD ORDERABLES Final Resul t [facility] [place] [address] * CEA (01/24/2023 1:08 PM CDT) CEA 1.5 <=5.0 ng/mL [facility] Comment: Interpretive Data: Reference Range: Non-Smokers: 0.0 ? 5.0 ng/mL Smokers: 0.0 ? 6.5 ng/mL The Bo CEA assay procedure was used. Results from different manufacturers or methods may not be comparable. Serial testing should be performed using the same method. Current interpretive data was last revised 2021. Blood 01/24/2023 1:08 PM CDT 01/24/2023 3:45 PM CDT us Abbi Ventura MD LAB BLOOD ORDERABLES Final Resul t [facility] [place] [address] * (ABNORMAL) Comprehensive metabolic panel (01/24/2023 1:08 PM CDT) Sodium 140 135 - 145 mmol/L [facility] Comment:Testing performed by : [facility], [address] [place] [address] Potassium, pl 4.4 3.3 - 4.9 mmol/L [facility] Chloride 107 97 - 110 mmol/L [facility] CO2 25 22 - 32 mmol/L [facility] Anion gap 8 2 - 15 mmol/L [facility] BUN 17 6 - 25 mg/dL [facility] Creatinine 1.46(H) 0.60 - 1.10 mg/dL [facility] Glucose 138 70 - 199 mg/dL [facility] Comment: Interpretive Data Fasting glucose >/= [...] 2022. Calcium 9.2 8.5 - 10.3 mg/dL [facility] Bilirubin, total 0.5 0.1 - 1.2 mg/dL [facility] Protein, pl 7.3 6.5 - 8.5 g/dL [facility] Albumin 4.3 3.5 - 5.0 g/dL [facility] Alk phos 97 40 - 130 Units/L [facility] ALT 10 7 - 45 Units/L [facility] AST 17 10 - 45 Units/L [facility] Blood 01/24/2023 1:08 PM CDT 01/24/2023 1:09 PM CDT Abbi Ventura MD LAB BLOOD ORDERABLES Final Resul t [facility] [place] [address] * (ABNORMAL) CBC with auto differential (01/24/2023 1:08 PM CDT) WBC 9.7 3.8 - 9.9 K/cumm [facility] Comment:Testing performed by : [address] [address] Hgb 11.6(L) 11.9 - 15.5 g/dL [facility] Comment:Testing performed by : [address] [address] Hct 36.1 35.6 - 45.5 % [facility] Comment:Testing performed by : [address] [address] Plt 189 150 - 400 K/cumm [facility] Comment:Testing performed by : [address] [address] MPV 9.7 9.1 - 12.3 fL [facility] RBC 4.03 3.90 - 5.20 M/cumm [facility] MCV 89.6 81.3 - 96.4 fL [facility] MCH 28.8 27.1 - 33.3 pg [facility] MCHC 32.1(L) 32.3 - 35.7 g/dL [facility] RDW CV 13.5 11.1 - 14.9 % [facility] RDW SD 44.5 35.7 - 48.1 fL [facility] NRBC abs 0.00 0.00 - 0.01 K/cumm [facility] Blood 01/24/2023 1:08 PM CDT 01/24/2023 1:09 PM CDT Abbi Ventura MD LAB BLOOD ORDERABLES Final Resul t [facility] [place] [address] documented in this encounter Visit Diagnoses Diagnosis Malignant 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, estrogen receptor negative (HCC) documented in this encounter Care Teams Social Work Nurse Relationship Specialty Start Date End Date Dat Benito DO [address] [place] [address] PCP - General Internal Medicine 09/28/21 Aft, Kianna Machado MD PhD [address] [place] [address] Surgeon Surgical Oncology 11/22/17 Santiago Gilbert MD [address] [place] [address] Airfield Engineer Officer Gastroenterology 11/22/17 Abbi Ventura MD [address] [place] [address] [address] [place] [address] Medical Oncologist/Head Cashier Medical Oncology 12/03/18 Montse Thompson MD [address] [place] [address] [address] [place] [address] Consulting Physician Gynecologic Oncology 12/03/18 Lela Hardy MD PhD [address] [place] [address] [address] [place], [place] [id number] Radiation Oncologist Radiation Oncology 12/23/18 Trena Obando MD [address] [place] [address] Consulting Physician Neurology 09/18/21 documented as of this encounter
--- OUTSIDE RECORDS SUMMARY | 2024-04-24 13:36 | XMS_ITS | Encounter Summary ---
Author Organization [facility] Address [address] [place] [address] Phone Care Team Providers Care Parker Name Role Phone Aft, Kianna Machado MD PhD Unavailable [phone] Santiago Gilbert MD Unavailable [phone] Abbi Ventura MD Unavailable Montse Thompson MD Unavailable [phone] Lela Hardy MD PhD Unavailable [phone] Trena Obando MD Unavailable [phone] Dat Benito DO Primary Care Provider [phone] Reason for Visit * Reason Onset Date Comments Appointment Reminder Call 10/18/202210/18 L MOM confiming 10/25 130pm appt AC Encounter Details Date Type Department Care Team (Late st Contact Info) Description 10/18/2022 Telephone [facility] Gastroenterology [facility] Medical Office Building [address], [address] [place] [address] Lisa Avila Appointment Reminder Call (10/18 LMOM confiming 10/25 130pm appt AC) Social History Tobacco Use Types Packs/Day Years [...] on file 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 Gender Identity Not on file Sexual Orientation Not on file documented as of this encounter Miscellaneous Notes * Telephone Encounter - Lisa Avila - 10/18/2022 4:31 PM CDT 10/18 LMOM confiming 10/25 130pm appt AC documented in this encounter Plan of Treatment Not on file documented as of this encounter Visit Diagnoses Not on filedocumented in this encounter Care Teams Parker Relationship Specialty Start Date End Date Dat Benito DO [address] [place] [address] PCP - General Internal Medicine 09/28/21 Aft, Kianna Machado MD PhD [address] [place] [address] Surgeon Surgical Oncology 11/22/17 Santiago Gilbert MD [address] [place] [address] Entry Level Accountant Gastroenterology 11/22/17 Abbi Ventura MD [address] [place] [address] Medical Oncologist/Presser Machine Medical Oncology 12/03/18 Montse Thompson MD [address] [place] [address] Consulting Physician Gynecologic Oncology 12/03/18 Lela Hardy MD PhD [address] [facility] [address] [place] [address] Radiation Oncologist Radiation Oncology 12/23/18 Trena Obando MD [facility] [address] [place] [address] Consulting Physician Neurology 09/18/21 documented as of this encounter
--- OUTSIDE RECORDS SUMMARY | 2024-04-24 13:36 | XMS_ITS | Encounter Summary ---
Author Organization [facility] Healthcare Address [address] [place] [address] Care Team Providers Care Rasper Machine Operator Name Role Phone Aft, Kianna Machado MD PhD Unavailable [phone] Santiago Gilbert MD Unavailable [phone] Abbi Ventura MD Unavailable Montse Thompson MD Unavailable [phone] Lela Hardy MD PhD Unavailable [phone] Trena Obando MD Unavailable [phone] Dat Benito DO Primary Care Provider [phone] Encounter Details Date Type Department Care Team (Late st Contact Info) Description 11/26/2022 Documentation [facility] Occupational Therapy [address] [place] [address] Kassie Beltrán, OT Social History Tobacco Use Types Packs/Day Years [...] on file 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 Kassie Beltrán OT 11/26/22 documented in this encounter Plan of Treatment Not on file documented as of this encounter Visit Diagnoses Not on filedocumented in this encounter Care Teams Rasper Machine Operator Relationship Specialty Start Date End Date Dat Benito DO [address] [place] [address] PCP - General Internal Medicine 09/28/21 Aft, Kianna Machado MD PhD [address] [place] [address] Surgeon Surgical Oncology 11/22/17 Santiago Gilbert MD [address] [place] [address] Lithographic Proofer Gastroenterology 11/22/17 Abbi Ventura MD [facility] [place] [address] Medical Oncologist/Design Engineer Agricultural Equipment Medical Oncology 12/03/18 Montse Thompson MD [address] [place] [address] Consulting Physician Gynecologic Oncology 12/03/18 Lela Hardy MD PhD [address] [place] [address] Radiation Oncologist Radiation Oncology 12/23/18 Trena Obando MD [address] [place] [address] Consulting Physician Neurology 09/18/21 documented as of this encounter
--- OUTSIDE RECORDS SUMMARY | 2024-04-24 13:36 | XMS_ITS | Encounter Summary ---
Author Organization [facility] Healthcare Address [address] [place] [address] Care Team Providers Care Ict Development Manager Name Role Phone Aft, Kianna Machado MD PhD Unavailable [phone] Santiago Gilbert MD Unavailable [phone] Abbi Ventura MD Unavailable Montse Thompson MD Unavailable [phone] Lela Hardy MD PhD Unavailable [phone] Trena Obando MD Unavailable [phone] Dat Benito DO Primary Care Provider [phone] Reason for Visit * MRI/CAT/PET Scan (Routine) - Closed Specialty Diagnoses / Procedures Referred By Contac t Referred To Contact Radiology Diagnoses Malignant 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, 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) Procedures MRI Brain W WO Contrast Abbi Ventura MD [address] [facility] [address] [place] [address] Phone: tel: fax: [facility] Referral ID Status Reason Start Date Expiration Date Visits Re quested Visits Authorized [id number] Closed 01/24/2023 02/23/2024 1 1 Encounter Details Date Type Department Care Team (Latest Contact Info) Description 01/29/2023 11:30 AM CDT Ancillary Procedure [facility] Mobile MRI [address] [place] [address] Malignant 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, estrogen receptor negative (HCC); 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) Social History Tobacco Use Types Packs/Day Years Used Date Smoking Tobacco: Former Cigarettes 1 42 1 973 - 2014 Smokeless Tobacco: Never Alcohol Use [...] on file 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 Gender Identity Not on file Sexual Orientation Not on file documented as of this encounter Plan of Treatment Not on file documented as of this encounter Procedures Procedure Name Priority Date/Time Associated Diagnosis Comments MRI BRAIN W WO CONTRAST Schedule STARR, Read STARR (Appt Today, Awaiting Results) 01/30/2023 9:42 AM CDT Malignant 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, 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 Electronically signed by: Shay Bennett M.D. Narrative 01/30/2023 12:03 PM CDT EXAMINATION: Magnetic resonance imaging (MRI) of the brain and brainstem without and with contrast HISTORY: Patient is a 67-year-old female with history of breast and colon cancer who is presenting with memory loss. TECHNIQUE: Multiplanar multi-weighted MRI of the brain and brainstem was performed without and with intravenous contrast using the general brain protocol. Contrast information: 20 mL Gadoterate Meglumine COMPARISON: MRI of the brain performed on 03/30/2020. FINDINGS: The scalp and calvarium are normal. ??Foci of increased T2 signal intensity are present within the red and subcortical and periventricular white matter of both cerebral hemispheres. ??These findings are nonspecific, but are likely secondary to small vessel vasculopathy. ??The superior sagittal sinus demonstrates normal venous flow. The corpus callosum is normal in shape and signal intensity. The posterior fossa is unremarkable. The pituitary and sella are normal. The brainstem and craniocervical junction are unremarkable. Diffusion weighted images reveal no hyperintensities to suggest acute cerebral infarction. The susceptibility weighted sequences reveal no evidence of acute or chronic hemorrhage. The ventricles are normal in size and position without evidence of hydrocephalus. The paranasal sinuses are normal. The visualized portions of the mastoids are unremarkable. The orbits appear normal. Normal flow voids are demonstrated in the carotid arteries and basilar artery. There is no abnormal contrast enhancement. Procedure Note Shay Bennett MD - 01/30/2023 EXAMINATION: Magnetic resonance imaging (MRI) of the brain and brainstem without and with contrast HISTORY: Patient is a 67-year-old female with history of breast and colon cancer who is presenting with memory loss. TECHNIQUE: Multiplanar multi-weighted MRI of the brain and brainstem was performed without and with intravenous contrast using the general brain protocol. Contrast information: 20 mL Gadoterate Meglumine COMPARISON: MRI of the brain performed on 03/30/2020. FINDINGS: The scalp and calvarium are normal. Foci of increased T2 signal intensity are present within the red and subcortical and periventricular white matter of both cerebral hemispheres. These findings are nonspecific, but are likely secondary to small vessel vasculopathy. The superior sagittal sinus demonstrates normal venous flow. The corpus callosum is normal in shape and signal intensity. The posterior fossa is unremarkable. The pituitary and sella are normal. The brainstem and craniocervical junction are unremarkable. Diffusion weighted images reveal no hyperintensities to suggest acute cerebral infarction. The susceptibility weighted sequences reveal no evidence of acute or chronic hemorrhage. The ventricles are normal in size and position without evidence of hydrocephalus. The paranasal sinuses are normal. The visualized portions of the mastoids are unremarkable. The orbits appear normal. Normal flow voids are demonstrated in the carotid arteries and basilar artery. There is no abnormal contrast enhancement. IMPRESSION: No acute intracranial process. Electronically signed by: Shay Bennett M.D. Abbi Ventura MD IMG MRI PROCEDURES [...] Date Dose Rate Site gadoterate meglumine injection 20 mL 20 mL, intravenous, Once in imaging, contrast, Starting on 01/29/23 at 1217, For 1 dose Contrast Given 01/29/2023 12:12 PM CDT 20 mL Right Antecubital documented in this encounter Orders Medications Ordered That [place] ht Not Have Been Administered Count Last Ordered Date First Ordered Date gadoterate meglumine injection 20 mL 1 01/05 documented in this encounter Care Teams Ict Development Manager Relationship Specialty Start Date End Date Dat Benito DO [address] [place] [address] PCP - General Internal Medicine 09/28/21 Aft, Kianna Machado MD PhD [address] [place] [address] Surgeon Surgical Oncology 11/22/17 Santiago Gilbert MD [address] [place] [address] Chicken Vaccinator Gastroenterology 11/22/17 Abbi Ventura MD [address] [place] [address] [address] [place] [address] Medical Oncologist/Tire Mounter Medical Oncology 12/03/18 Montse Thompson MD [address] [facility] [address] [place] [address] Consulting Physician Gynecologic Oncology 12/03/18 Lela Hardy MD PhD [address] [facility] [address] [place] [address] Radiation Oncologist Radiation Oncology 12/23/18 Trena Obando MD [facility] [address] [place] [address] Consulting Physician Neurology 09/18/21 documented as of this encounter
--- OUTSIDE RECORDS SUMMARY | 2024-04-24 13:36 | XMS_ITS | Encounter Summary ---
Author Organization [facility] Address [address] [place] [address] Phone Care Team Providers Care Pocketbook Maker Name Role Phone Aft, Kianna Machado MD PhD Unavailable [phone] Santiago Gilbert MD Unavailable [phone] Abbi Ventura MD Unavailable Montse Thompson MD Unavailable [phone] Lela Hardy MD PhD Unavailable [phone] Trena Obando MD Unavailable [phone] Dat Benito DO Primary Care Provider [phone] Encounter Details Date Type Department Care Team (Latest Contact Info) Description 07/04/2022 Orders Only [facility] Scanning, Provider Social History Tobacco Use Types Packs/Day Years [...] on file 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 Gender Identity Not on file Sexual Orientation Not on file documented as of this encounter Plan of Treatment Not on file documented as of this encounter Procedures Procedure Name Priority Date/Time Associated Diagnosis Comments SCAN - PATHOLOGY 07/04/2022 1:53 PM BUYER ASSISTANT documented in this encounter Results * SCAN - PATHOLOGY (07/04/2022 1:53 PM BUYER ASSISTANT) us Provider Scanning Final Result documented in this encounter Visit Diagnoses Not on filedocumented in this encounter Care Teams Pocketbook Maker Relationship Specialty Start Date End Date Dat Benito DO [address] [place] [address] PCP - General Internal Medicine 09/28/21 Aft, Kianna Machado MD PhD [address] [place] [address] Surgeon Surgical Oncology 11/22/17 Santiago Gilbert MD [address] [place] [address] Rip Machine Operator Gastroenterology 11/22/17 Abbi Ventura MD [address] [place] [address] Medical Oncologist/Data Network Architect Medical Oncology 12/03/18 Montse Thompson MD [address] [place] [address] Consulting Physician Gynecologic Oncology 12/03/18 Lela Hardy MD PhD [address] [place] [address] Radiation Oncologist Radiation Oncology 12/23/18 Trena Obando MD [address] [place] [address] Consulting Physician Neurology 09/18/21 documented as of this encounter
--- OUTSIDE RECORDS SUMMARY | 2024-04-24 13:36 | XMS_ITS | Encounter Summary ---
Author Organization [facility] Healthcare Address [address] [place] [address] Care Team Providers Care Mottler Operator Name Role Phone Aft, Kianna Machado MD PhD Unavailable [phone] Santiago Gilbert MD Unavailable [phone] Abbi Ventura MD Unavailable Montse Thompson MD Unavailable [phone] Lela Hardy MD PhD Unavailable [phone] Trena Obando MD Unavailable [phone] Dat Benito DO Primary Care Provider [phone] Reason for Visit * Reason Comments Psychotherapy Encounter Details Date Type Department Care Team (Late st Contact Info) Description 07/09/2022 1:00 PM CEMENT GRINDING MILL OPERATOR Clinical Support [address] Advanced Medicine 1st [place] [id number] Cynthia Boyer, PhD [address] [place] [address] Malignant 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, 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) (HCC) Social History Tobacco Use Types [...] on file 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 PSYCHOLOGY SERVICE INITIAL CONSULTATION NOTE TELEPSYCHOLOGY VISIT Patient Identifying Data Patient Name: Aleah Gerber Age: 66 y.o. Sex: female Telehealth Modality: Zoom Initial evaluation for psychological services was completed via telehealth. Written informed consent for telehealth was obtained from patient prior to outset of evaluation. Potential risk and benefits of telehealth sessions were discussed with patient. Requirements for telehealth sessions were alsocovered, including need for private space, limited distractions, no one else present without both parties consent. Back-up plan was made at beginning of session in case of unexpected technology disruptions. Nearest emergency contact identified. Provider was located in the [facility] for the duration of this appointment. Patient confirmed current location is: [address] [place] [address] Primary (home) REASON FOR VISIT: Reason for consult: Survivorship concerns Referral Source: Oncologist HPI: Patient presents with a significant past medical history of breast and colon cancer, separate primary diagnoses. Most recently she had a double mastectomy about 6 weeks ago. 3rd cancer Had brca gene, always waiting for other shoe to drop Doesn't feel like she has control over herself right now Things are worse at night Overeating Takes care of mother who has dementia Dx in 2019 colon cancer and breast cancer Daughter and son Looking at getting back to some type of work Double mastectomy about 6 weeks ago Right now can look at scar but will leave light off Rumination Trouble falling asleep secondary to racing thoughts Loss of motivation started around first diagnosis, starting new job helped Starts projects, doesn't finish them, likes instant gratification Hobbies: antiquing, arts and crafts Went to OT after chemo for memory EMOTIONAL STATUS/PSYCHIATRIC HISTORY: Presenting Diagnostic Criteria: Depression: Some loss of motivation Anxiety: Racing thoughts, feeling out of control, rumination, avoidance of body Insomnia: Secondary to anxiety Substance Abuse History: Denied Previous mental health treatment: Denied Risk Assessment The patient flatly denied risk of harm to self or others and there was no evidence of such during our meeting. The patient was deemed to be sustainable as an outpatient. Thoughts of suicidal ideation about 8 months ago; thoughts lasted one day; thought about pills as the method but denied any preparatory behaviors. Reported thinking about daughter and mom was helpfulin preventing thoughts from becoming stronger or acting on thoughts. Denied any thoughts of suicidesince that day. Risk Factors: Current or previous history of psychiatric diagnosis Co-morbid health problems Protective Factors: Positive social support Sense of responsibility to family Positive problem-solving skills Level of Risk: Low Risk Suicidal Behavior Suicide Safety Plan: N/A Mental Status Level of consciousness & Orientation: Alert and oriented to person, place, time Appearance: Dressed casually, appropriately groomed Behavior/Motor: Within normal limits Speech: Within normal limits Mood: Anxious Affect Range: Broad Congruency:Mood congruent Concentration: No deficits noted Memory: Intact Thought Process: Linear and coherent Insight: Moderate Judgment: Intact Barriers to Healthcare and Compliance: None identified Summary: The patient is a 66 y.o. White female with a significant medical history of colon cancer and most recently breast cancer treated with chemo, radiation, and mastectomy about 6 weeks ago. She endorses concerns related to survivorship including fear of recurrence, racing thoughts, feeling out of control with her body, and loss of motivation. She was receptive to psychoeducation of common survivorship concerns as well as explanation of treatment. She denied any current si or hi. DSM-5 Diagnostic Impression: Adjustment disorder with anxiety F43.22 Plan 1. Patient will likely benefit from ACT-based interventions targeting mood management. 2. Patient will follow up in 2 weeks for continued support and intervention Cynthia Boyer Psy.D. Licensed Psychologist documented in this encounter Plan of Treatment Not on file documented as of this encounter Visit Diagnoses Diagnosis Malignant 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, estrogen receptor negative (HCC) documented in this encounter Orders Consult Count Last Ordered Date First Orde red Date ANCILLARY ONCOLOGY SERVICES REQUEST 1 07/09 documented in this encounter Care Teams Mottler Operator Relationship Specialty Start Date End Date Dat Benito DO [address] [place] [address] PCP - General Internal Medicine 09/28/21 Aft, Kianna Machado MD PhD [address] [place] [address] Surgeon Surgical Oncology 11/22/17 Santiago Gilbert MD [address] [place] [address] It Infrastructure Specialist Gastroenterology 11/22/17 Abbi Ventura MD [address] [place] [address] [address] [place] [address] Medical Oncologist/Line Servicer Medical Oncology 12/03/18 Montse Thompson MD [address] [place] [address] [address] [place] [address] Consulting Physician Gynecologic Oncology 12/03/18 Lela Hardy MD PhD [address] [place] [address] [address] [place] [address] Radiation Oncologist Radiation Oncology 12/23/18 Trena Obando MD [address] [place] [address] Consulting Physician Neurology 09/18/21 documented as of this encounter
--- OUTSIDE RECORDS SUMMARY | 2024-04-24 13:36 | XMS_ITS | Encounter Summary ---
Author Organization [facility] Address [address] [place] [address] Phone Care Team Providers Care Corporate Physical Security Supervisor Name Role Phone Aft, Kianna Machado MD PhD Unavailable [phone] Santiago Gilbert MD Unavailable [phone] Abbi Ventura MD Unavailable Montse Thompson MD Unavailable [phone] Lela Hardy MD PhD Unavailable [phone] Trena Obando MD Unavailable Dat Benito DO Primary Care Provider [phone] Reason for Referral * MRI/CAT/PET Scan (Routine) - Closed Specialty Diagnoses / Procedures Referred By Contac t Referred To Contact Radiology Diagnoses Malignant 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, 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) Procedures MRI Brain W WO Contrast Abbi Ventura MD [address] [facility] [address] [place] [address] Phone: tel: fax: [facility] Referral ID Status Reason Start Date Expiration Date Visits Re quested Visits Authorized [id number] Closed 01/24/2023 02/23/2024 1 1 Encounter Details Date Type Department Care Team (Late st Contact Info) Description 01/24/2023 1:30 PM CDT Office Visit [facility] Oncology [address] [place] [address] Jenny Quigley NP [address] [place] [address] Malignant 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, estrogen receptor negative (HCC) (Primary Dx); 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) [...] on file 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 Gender Identity Not on file Sexual Orientation Not on file documented as of this encounter Last Filed Vital Signs Vital Sign Reading Time Taken Comments Blood Pressure 101/63 01/24/2023 1:19 PM CDT Pulse 91 01/24/2023 1:19 PM CDT Temperature 36.4 ??C (97.6 ??F) 01/24/2023 1:19 PM CD T Respiratory Rate 16 01/24/2023 1:19 PM CDT Oxygen Saturation 99% 01/24/2023 1:19 PM CDT Inhaled Oxygen Concentration - - Weight 103 kg (227 lb) 01/24/2023 1:19 PM CDT Height - - Body Mass Index 34.28 10/29/2022 4:48 PM CDT documented in this encounter Progress Notes * Jenny Quigley NP - 01/24/2023 1:30 PM CDT Images from the original note were not included. The Patient Identifying Data: Aleah Gerber is a 67 y.o. female seen in followup today DIAGNOSIS: 1. 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 Diagnosed 10/2017 3. 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 [employer] risk showed no mutation in MLH 1 or PMS2 suggesting that the patient does not have Grullon syndrome. 4. Allergic reaction to oxaliplatin during cycle 6 of FOLFOX 5. DYPD genotype normal. 6. DVT/PE diagnosed 05/28/18 7. Stage I Right breast invasive ductal carcinoma - ER negative DE negative Her 2 negative diagnosed 03/2022 TREATMENT [...] ~ 1.4 cm, Grade 3, ER 0, DE 0, HER-2 IHC 0. Partial mastectomy and [...] 04/13/22 showed invasive ductal carcinoma. ER negative DE negative Her 2 negative Bilateral mastectomy 05/22/22 [...] tumor, we elected to observe. Interval History She has been having increased fatigue. She has been following with her PCP in regards to this. Appetite has been decreased, she recently started on Ozempic about 4 months ago. No new headaches or vision issues. No new cough or SOB. No abd pain, nausea or vomiting. She does have some side effects from the Ozempic. Intermittent diarrhea and constipation. Takes Imodium as needed. For constipation take stool softener as needed. Last BM was yesterday. No blood in stool. She did have COVID 2 weeks ago. No recent fevers or chills. She has been having memory issues which were more pronounced last month when she had to quit her job due to being unable to remember certain steps. Review of Systems Review of systems positive for symptoms as per interval history. All other review of systems negative. Objective Vitals: Vitals LMP (LMP Unknown) PERFORMANCE STATUS: ECOG 1 SKIN: Normal turgor, [...] some fullness. No discrete mass in that area. Lab/Radiology/Diagnostic Review: Hematology Lab History Latest Ref Rng & Units 02/01/2022 15:28 07/04/2022 12:41 10/25/2022 15:04 Labs - Hematology WBC 3.8 - 9.9 K/cumm 7.3 7.9 9.2 Total Hb, POC 11.9 - 15.5 g/dL 12.3 11.8 12.5 Hct 35.6 - 45.5 % 38.3 37.3 38.7 Plt 150 - 400 K/cumm 180 199 174 Neutrophil abs 1.7 - 6.5 K/cumm 4.7 5.4 6.6 Lymphocytes, abs 0.8 - 3.3 K/cumm 1.8 1.5 1.6 Lab Results Component Value Date SODIUM 139 10/25/2022 POTASSIUM 4.1 10/25/2022 CO2 24 10/25/2022 BUNSER 17 10/25/2022 GLUCOSE 119 10/25/2022 CREATININE 1.6 (H) 11/23/2022 CALCIUM 9.4 10/25/2022 CHLORIDE 108 10/25/2022 ALBUMIN 4.3 10/25/2022 AST 18 10/25/2022 ALT 12 10/25/2022 ALKPHOS 102 10/25/2022 BILITOT 0.4 10/25/2022 PROT 7.0 10/25/2022 ANIONGAP 7 10/25/2022 Tumor Marker History Latest Ref Rng & Units 02/01/2022 15:28 07/04/2022 12:41 10/25/2022 15:04 Tumor Markers CEA <=5.0 ng/mL 2.1 1.6 1.0 CA 125 ag 0.0 - 38.1 units/mL 9.[address] Abdomen Pelvis WO Contrast Narrative: EXAMINATION: Computed tomography of the abdomen and pelvis without intravenous contrast HISTORY: 67-year-old female with pelvic pressure for 2 months. History of breast cancer and ovarian cancer status post bilateral mastectomy and hysterectomy/[id number] TECHNIQUE: Transaxial computed tomographic images of the [...] common iliac artery. No suspicious osseous lesion. Impression: No pathology identified in the abdomen or pelvis to correlate with the patient's reported symptoms. Dictated by: Boone Malone MD The radiology attending physician has personally reviewed this study, and had reviewed and/or edited this written report and agrees with it. Electronically signed by: Marlon Anderson M.D. Recent labs, radiology and pathology reviewed in [facility] ASSESSMENT: Stage I [id number] right breast cancer -ER negative DE negative Her 2 negative- Mammaprint could not be done due to insufficient tumor. No evidence of cancer recurrence T4bN0 disease, Stage IIC colon adenocarcinoma- no evidence of cancer recurrence T2N0, Stage IIA triple negative left breast cancer - no evidence of cancer recurrence [facility] for BRCA2 mutation, and VUS in BRIP1 and NBN: Status post bilateral oophorectomy, bilateral mastectomy. Her sister had pancreatic cancer. F/u Dr. Fofana. She is also being followed by Dr. Thompson to screen for primary peritoneal carcinomatosis Depression/anxiety: f/u Psychology and PCP CIPN- at grade 1 level. Lymphedema - I offered to refer her to PT but patient wanted to hold off on it Memory issues - MRI brain to rule out metastatic disease PLAN: Continued observation MRI brain ROV in 3 months with CEA and Ca 125 to screen for primary peritoneal carcinomatosis F/u Dr. Gilbert, her local manager technical services, regarding screening colonoscopy CT CAP negative we will stop ordering routine scans as she will be 5 yrs out from colon cancer diagnosis. We will continue to monitor and review for side effects from treatment. The patient is in agreementwith this plan of care and will call us in the interim with questions. Jenny Quigley MSN RIG MANAGER RAILWAY SHUNTER-C Division of Medical Oncology [facility] documented in this encounter Plan of Treatment Not on file documented as of this encounter Results * (ABNORMAL) Comprehensive metabolic panel (04/11/2023 12:52 PM MOLD TOOLER) Sodium 139 135 - 145 mmol/L [facility] Comment:Testing performed by : [facility], [address] [place] [address] Potassium, pl 4.2 3.3 - 4.9 mmol/L [facility] Chloride 109 97 - 110 mmol/L [facility] CO2 26 22 - 32 mmol/L [facility] Anion gap 4 2 - 15 mmol/L [facility] BUN 24 6 - 25 mg/dL [facility] Creatinine 1.41(H) 0.60 - 1.10 mg/dL [facility] Glucose 116 70 - 199 mg/dL [facility] Comment: Interpretive Data Fasting glucose [...] 2022. Calcium 9.2 8.5 - 10.3 mg/dL [facility] Bilirubin, total 0.4 0.1 - 1.2 mg/dL [facility] Protein, pl 7.2 6.5 - 8.5 g/dL [facility] Albumin 4.3 3.5 - 5.0 g/dL [facility] Alk phos 90 40 - 130 Units/L [facility] ALT 11 7 - 45 Units/L [facility] AST 18 10 - 45 Units/L [facility] Blood 04/11/2023 12:5 2 PM MOLD TOOLER 04/11/2023 12:53 PM MOLD TOOLER Abbi Ventura MD LAB BLOOD ORDERABLES Final Resul t Performing Organization Address [facility] de Phone Number [facility] [place] [address] * CA 125 (04/11/2023 12:52 PM MOLD TOOLER) CA 125 ag 7.4 0.0 - 38.1 units/mL [facility] Comment: Interpretive Data The Bo CA 125 assay procedure was used. Results from different manufacturers or methods may not be comparable. Serial testing should be performed using the same method. Blood 04/11/2023 12:5 2 PM MOLD TOOLER 04/11/2023 2:35 PM MOLD TOOLER Abbi Ventura MD LAB BLOOD ORDERABLES Final Resul t Performing Organization Address City/[facility]/ZIP Co de Phone Number [facility] Department [place] [employer] [place] [address] * (ABNORMAL) CBC with auto differential (04/11/2023 12:52 PM MOLD TOOLER) [facility] WBC 7.1 3.8 - 9.9 K/cumm [facility] Comment:Testing performed by : [address] [address] Hgb 11.9 11.9 - 15.5 g/dL [facility] Comment: Testing performed by: [address] [address] Interpretive Data A reference range for this assay has not been established for patients with an unknown legal sex. Please refer to the laboratory test catalog for established sex-specific reference intervals. Current interpretive data was last revised on 2023. Hct 37.4 35.6 - 45.5 % [facility] Comment: Testing performed by: [facility], [address] [place] [address] Interpretive Data A reference range for this assay has not been established for patients with an unknown legal sex. Please refer to the laboratory test catalog for established sex-specific reference intervals. Current interpretive data was last revised on 2023. Plt 176 150 - 400 K/cumm [facility] Comment:Testing performed by : [address] [address] MPV 9.0(L) 9.1 - 12.3 fL [facility] RBC 4.13 3.90 - 5.20 M/cumm [facility] Comment: Interpretive Data A reference range for this assay has not been established for patients with an unknown legal sex. Please refer to the laboratory test catalog for established sex-specific reference intervals. Current interpretive data was last revised on 2023. MCV 90.6 81.3 - 96.4 fL [facility] MCH 28.8 27.1 - 33.3 pg [facility] MCHC 31.8(L) 32.3 - 35.7 g/dL [facility] RDW CV 13.2 11.1 - 14.9 % [facility] RDW SD 43.9 35.7 - 48.1 fL [facility] NRBC abs 0.00 0.00 - 0.01 K/cumm [facility] Blood 04/11/2023 12:5 2 PM MOLD TOOLER 04/11/2023 12:53 PM MOLD TOOLER Abbi Ventura MD LAB BLOOD ORDERABLES Final Resul t Performing Organization Address [facility] de Phone Number [facility] [place] [address] * CEA (04/11/2023 12:52 PM MOLD TOOLER) CEA 1.4 <=5.0 ng/mL [facility] Comment: Interpretive Data: Reference Range: Non-Smokers: 0.0 ? 5.0 ng/mL Smokers: 0.0 ? 6.5 ng/mL The Bo CEA assay procedure was used. Results from different manufacturers or methods may not be comparable. Serial testing should be performed using the same method. Current interpretive data was last revised 2021. Blood 04/11/2023 12:5 2 PM MOLD TOOLER 04/11/2023 2:35 PM MOLD TOOLER Abbi Ventura MD LAB BLOOD ORDERABLES Final Resul t Performing Organization Address [facility] de Phone Number [facility] Department [place] [address] * MRI Brain W WO Contrast (01/30/2023 [...] by: Shay Bennett M.D. Abbi Ventura MD IM MRI PROCEDURES Final Result documented in this encounter Visit Diagnoses Diagnosis Malignant 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, estrogen receptor negative (HCC)- Primary 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) Malignant neoplasm 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, 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) Malignant neoplasm of descending colon documented in this encounter Orders Appointment Requests Count Last Ordered Date Fi rst Ordered Date ONCBCN CLINIC APPOINTMENT REQUEST 2 023 01/24/2023 ONCBCN LAB APPOINTMENT 1 04/11/2023 documented in this encounter Care Teams Corporate Physical Security Supervisor Relationship Specialty Start Date End Date Dat Benito DO [address] [place] [address] PCP - General Internal Medicine 09/28/21 Aft, Kianna Machado MD PhD [address] [place] [address] Surgeon Surgical Oncology 11/22/17 Santiago Gilbert MD [address] [place] [address] Certified Residential Medication Aide Gastroenterology 11/22/17 Abbi Ventura MD [address] [place] [address] Medical Oncologist/Machine Package Sealer Medical Oncology 12/03/18 Montse Thompson MD [address] [place] [address] Consulting Physician Gynecologic Oncology 12/03/18 Lela Hardy MD PhD [address] [facility] [address] [place] [address] Radiation Oncologist Radiation Oncology 12/23/18 Trena Obando MD [address] [place] [address] Consulting Physician Neurology 09/18/21 documented as of this encounter
--- OUTSIDE RECORDS SUMMARY | 2024-04-24 13:36 | XMS_ITS | Encounter Summary ---
Author Organization [facility] Address [address] [place] [address] Phone Care Team Providers Care Pipe Fitter Ammonia Name Role Phone Aft, Kianna Machado MD PhD Unavailable [phone] Santiago Gilbert MD Unavailable [phone] Abbi Ventura MD Unavailable Montse Thompson MD Unavailable [phone] Lela Hardy MD PhD Unavailable [phone] Trena Obando MD Unavailable [phone] Dat Benito DO Primary Care Provider [phone] Encounter Details Date Type Department Care Team (Late st Contact Info) Description 04/11/2023 12:15 PM MILKING MACHINE OPERATOR Lab [facility] Oncology [address] [place] [address] Malignant neoplasm of upper-inner quadrant of left [...] on file 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 MILKING MACHINE OPERATOR Gender Identity Not on file [...] rst Ordered Date ONCBCN LAB APPOINTMENT 1 04/11/2023 documented in this encounter Care Teams Pipe Fitter Ammonia Relationship Specialty Start Date End Date Dat Benito DO [address] [place] [address] PCP - General Internal Medicine 09/28/21 Aft, Kianna Machado MD PhD [address] [place] [address] Surgeon Surgical Oncology 11/22/17 Santiago Gilbert MD [address] [place] [address] Dog Trainer Gastroenterology 11/22/17 Abbi Ventura MD [address] [place] [address] [address] [place] [address] Medical Oncologist/Bag Washer Medical Oncology 12/03/18 Montse Thompson MD [address] [place] [address] Consulting Physician Gynecologic Oncology 12/03/18 Lela Hardy MD PhD [address] [facility] [address] [place] [address] Radiation Oncologist Radiation Oncology 12/23/18 Trena Obando MD [address] [place] [address] Consulting Physician Neurology 09/18/21 documented as of this encounter
--- OUTSIDE RECORDS SUMMARY | 2024-04-24 13:36 | XMS_ITS | Encounter Summary ---
Author Organization [facility] Address [address] [place] [address] Phone Care Team Providers Care Leaf Sorter Name Role Phone Aft, Kianna Machado MD PhD Unavailable [phone] Santiago Gilbert MD Unavailable [phone] Abbi Ventura MD Unavailable Montse Thompson MD Unavailable [phone] Lela Hardy MD PhD Unavailable [phone] Trena Obando MD Unavailable Dat Benito DO Primary Care Provider [phone] Reason for Visit * Consultation (Routine) - Authorized Specialty Diagnoses / Procedures Referred By Contronny t Referred To Contact Oncology Diagnoses Malignant 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, estrogen receptor negative (HCC) Abbi Ventura MD [address] [place] [address] Phone: tel: fax: Abbi Ventura MD [address] [place] [address] Phone: tel: fax: Referral ID Status Reason Start Date Expiration Date Visits Requested Visits Authorized [id number] Authorized Specialty Services Required 3 05/03/2024 99 99 Encounter Details Date Type Department Care Team (Late st Contact Info) Description 04/11/2023 12:45 PM ADJUSTER ARBITRATOR Office Visit [facility] Oncology [address] [place] [address] Abbi Ventura MD [address] [place] [address] Malignant neoplasm of upper-inner quadrant of left [...] on file 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 ADJUSTER ARBITRATOR Gender Identity Not on file Sexual Orientation Not on file documented as of this encounter Last Filed Vital Signs Vital Sign Reading Time Taken Comments Blood Pressure 130/75 04/11/2023 12:58 PM ADJUSTER ARBITRATOR Pulse 79 04/11/2023 12:58 PM ADJUSTER ARBITRATOR Temperature 36.4 ??C (97.5 ??F) 04/11/2023 1 2:58 PM ADJUSTER ARBITRATOR Respiratory Rate 16 04/11/2023 12:5 8 PM ADJUSTER ARBITRATOR Oxygen Saturation 96% 04/11/2023 12: 58 PM ADJUSTER ARBITRATOR Inhaled Oxygen Concentration - - Weight 102.7 kg (226 lb 6.4 oz) 023 12:58 PM ADJUSTER ARBITRATOR Height - - Body Mass Index 34.19 10/29/2022 4:48 PM CDT documented in this encounter Progress Notes * Jenny Quigley NP - 04/11/2023 12:45 PM CST Images from the original note were not included. The Patient Identifying Data: Aleah Gerber is a 67 y.o. female seen in followup today DIAGNOSIS: 1. 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 Diagnosed 10/2017 3. 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 Mpayy risk showed no mutation in MLH 1 or PMS2 suggesting that the patient does not have Grullon syndrome. 4. Allergic reaction to oxaliplatin during cycle 6 of FOLFOX 5. DYPD genotype normal. 6. DVT/PE diagnosed 05/28/18 7. Stage I Right breast invasive ductal carcinoma - ER negative IL negative Her 2 negative diagnosed 03/2022 TREATMENT [...] ~ 1.4 cm, Grade 3, ER 0, IL 0, HER-2 IHC 0. Partial mastectomy and [...] 04/13/22 showed invasive ductal carcinoma. ER negative IL negative Her 2 negative Bilateral mastectomy 05/22/22 [...] elected to observe. Interval History She has noticed some increased fatigue. Appetite has been okay, she remains on Ozempic. No new headaches or vision issues. 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 No new cough or SOB. SOB on exertion. No abdpain, nausea or vomiting. She continues with diarrhea intermittently. Takes Imodium as needed. No blood in stool. No fevers. She has been having intermittent chills. Review of Systems Review of systems positive for symptoms as per interval history. All other review of systems negative. Objective Vitals: Vitals BP 130/75 (BP Location: Left arm) Pulse 79 Temp 36.4 ??C (97.5 ??F) Resp 16 Wt 102.7 kg (226 lb 6.4 oz) LMP (LMP Unknown) SpO2 96% BMI 34.19 kg/m?? PERFORMANCE STATUS: ECOG 1 SKIN: Normal [...] - 3.3 K/cumm 1.5 1.6 1.6 1.5 Lab Results Component Value Date SODIUM 139 04/11/2023 POTASSIUM 4.2 04/11/2023 CO2 26 04/11/2023 BUNSER 24 04/11/2023 GLUCOSE 116 04/11/2023 CREATININE 1.41 (H) 04/11/2023 CALCIUM 9.2 04/11/2023 CHLORIDE 109 04/11/2023 ALBUMIN 4.3 04/11/2023 AST 18 04/11/2023 ALT 11 04/11/2023 ALKPHOS 90 04/11/2023 BILITOT 0.4 04/11/2023 PROT 7.2 04/11/2023 ANIONGAP 4 04/11/2023 Tumor Marker History Latest Ref Rng & Units 07/04/2022 12:41 10/25/2022 15:04 01/24/2023 13:08 Tumor Markers CEA <=5.0 ng/mL 1.6 1.0 1.5 CA 125 ag 0.0 - 38.1 units/mL 10.5 8.0 MRI Brain W WO Contrast Narrative: EXAMINATION: Magnetic resonance imaging (MRI) of the [...] artery. There is no abnormal contrast enhancement. Impression: No acute intracranial process. Electronically signed by: Shay Bennett M.D. Recent labs, radiology and pathology reviewed in [facility] ASSESSMENT: Stage I [id number] right breast cancer -ER negative IL negative Her 2 negative- Mammaprint could not be done due to insufficient tumor. No evidence of cancer recurrence T4bN0 disease, Stage IIC colon adenocarcinoma- no evidence of cancer recurrence T2N0, Stage IIA triple negative left breast cancer - no evidence of cancer recurrence [facility] panel is positive for BRCA2 mutation, and [...] patient wanted to hold off on it PLAN: Continued observation ROV in 3 months with CEA and Ca 125 to screen for primary peritoneal carcinomatosis F/u Dr. Gilbert, her local pet sitter, colonoscopy completed 04/09/2022 and repeat in [address] CAP negative we will stop ordering routine scans as she will be 5 yrs out from colon cancer diagnosis. RTC 3 months We will continue to monitor and review for side effects from treatment. The patient is in agreementwith this plan of care and will call us in the interim with questions. Jenny Quigley MSN LAW LIBRARIAN ADMISSIONS RECRUITER-C Division of Medical Oncology [facility] STER ARBITRATOR documented in this encounter Plan of Treatment Not on file documented as of this encounter Results * CA 125 (07/04/2023 10:10 AM ADJUSTER ARBITRATOR) Pathologist [facility] CA 125 ag 7.0 0.0 - 38.1 units/mL [facility] Comment: Interpretive Data The Bo CA 125 assay procedure was used. Results from different manufacturers or methods may not be comparable. Serial testing should be performed using the same method. Blood 07/04/2023 10:1 0 AM ADJUSTER ARBITRATOR 07/04/2023 12:29 PM ADJUSTER ARBITRATOR us Abbi Ventura MD LAB BLOOD ORDERABLES Final Resul t [facility] Department [place] [address] * (ABNORMAL) Comprehensive metabolic panel (07/04/2023 10:10 AM ADJUSTER ARBITRATOR) Pathologist [facility] Sodium 137 135 - 145 mmol/L [facility] Comment:Testing performed by : [facility], [address] [place] [address] Potassium, pl 4.3 3.3 - 4.9 mmol/L [facility] Chloride 106 97 - 110 mmol/L [facility] CO2 25 22 - 32 mmol/L [facility] Anion gap 6 2 - 15 mmol/L [facility] BUN 27(H) 6 - 25 mg/dL [facility] Creatinine 1.51(H) 0.60 - 1.10 mg/dL [facility] Glucose 160 70 - 199 mg/dL [facility] Comment: Interpretive Data Fasting glucose >/= 126 [...] 2022. Calcium 9.0 8.5 - 10.3 mg/dL [facility] Bilirubin, total 0.3 0.1 - 1.2 mg/dL [facility] Protein, pl 7.2 6.5 - 8.5 g/dL [facility] Albumin 4.1 3.5 - 5.0 g/dL [facility] Alk phos 98 40 - 130 Units/L [facility] ALT 8 7 - 45 Units/L [facility] AST 17 10 - 45 Units/L [facility] Blood 07/04/2023 10:1 0 AM ADJUSTER ARBITRATOR 07/04/2023 10:16 AM ADJUSTER ARBITRATOR us Abbi Ventura MD LAB BLOOD ORDERABLES Final Resul t [facility] Department of Laboratories [place], [place] [id number] * (ABNORMAL) CBC with auto differential (07/04/2023 10:10 AM ADJUSTER ARBITRATOR) [facility] WBC 7.7 3.8 - 9.9 K/cumm [facility] Comment:Testing performed by : [facility], [address] [place] [address] Hgb 11.7(L) 11.9 - 15.5 g/dL [facility] Comment:Testing performed by : [facility], [address] [place] [address] Hct 36.4 35.6 - 45.5 % [facility] Comment:Testing performed by : [facility], [address] [place] [address] Plt 171 150 - 400 K/cumm [facility] Comment:Testing performed by : [facility], [address] [place] [address] MPV 9.1 9.1 - 12.3 fL [facility] RBC 4.02 3.90 - 5.20 M/cumm [facility] MCV 90.5 81.3 - 96.4 fL [facility] MCH 29.1 27.1 - 33.3 pg [facility] MCHC 32.1(L) 32.3 - 35.7 g/dL [facility] RDW CV 13.4 11.1 - 14.9 % [facility] RDW SD 44.4 35.7 - 48.1 fL [facility] NRBC abs 0.00 0.00 - 0.01 K/cumm [facility] Blood 07/04/2023 10:1 0 AM ADJUSTER ARBITRATOR 07/04/2023 10:16 AM ADJUSTER ARBITRATOR Abbi Ventura MD LAB BLOOD ORDERABLES Final Resul t [facility] [place] [address] * CEA (07/04/2023 10:10 AM ADJUSTER ARBITRATOR) CEA 1.5 <=5.0 ng/mL [facility] Comment: Interpretive Data: Reference Range: Non-Smokers: 0.0 ? 5.0 ng/mL Smokers: 0.0 ? 6.5 ng/mL The Bo CEA assay procedure was used. Results from different manufacturers or methods may not be comparable. Serial testing should be performed using the same method. Current interpretive data was last revised 2021. Blood 07/04/2023 10:1 0 AM ADJUSTER ARBITRATOR 07/04/2023 12:29 PM ADJUSTER ARBITRATOR us Abbi Ventura MD LAB BLOOD ORDERABLES Final Resul t [facility] [place] [address] documented in this encounter Visit Diagnoses Diagnosis Malignant 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, estrogen receptor negative (HCC)- Primary 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) Malignant neoplasm of descending colon documented in this encounter Orders Outpatient Referral Count Last Ordered Date Fir st Ordered Date AMB REFERRAL TO ONCOLOGY 1 04/11/2023 Appointment Requests Count Last Ordered Date Fi rst Ordered Date [facility] CLINIC APPOINTMENT REQUEST 2 024 04/11/2023 [facility] LAB APPOINTMENT 1 07/04/2023 documented in this encounter Care Teams Leaf Sorter Relationship Specialty Start Date End Date Dat Benito DO [address] [place] [address] PCP - General Internal Medicine 09/28/21 Aft, Kianna Machado MD PhD [address] [place] [address] Surgeon Surgical Oncology 11/22/17 Santiago Gilbert MD [address] [place] [address] Motorcycle Sales Associate Gastroenterology 11/22/17 Abbi Ventura MD [address] [place] [address] Medical Oncologist/Otolaryngology Nurse Medical Oncology 12/03/18 Montse Thompson MD [address] [place], [place] [id number] Consulting Physician Gynecologic Oncology 12/03/18 Lela Hardy MD PhD [address] [facility] [address] [facility] [place] [address] Radiation Oncologist Radiation Oncology 12/23/18 Trena Obando MD [address] [place] [address] Consulting Physician Neurology 09/18/21 documented as of this encounter
--- OUTSIDE RECORDS SUMMARY | 2024-04-24 13:36 | XMS_ITS | Encounter Summary ---
Author Organization [facility] Address [address] [place] [address] Care Team Providers Care Professional Services Manager Name Role Phone Aft, Kianna Machado MD PhD Unavailable [phone] Santiago Gilbert MD Unavailable [phone] Abbi Ventura MD Unavailable Montse Thompson MD Unavailable [phone] Lela Hardy MD PhD Unavailable [phone] Trena Obando MD Unavailable [phone] Dat Benito DO Primary Care Provider [phone] Reason for Visit * Reason Comments Psychotherapy Encounter Details Date Type Department Care Team (Late st Contact Info) Description 07/23/2022 3:00 PM CDT Clinical Support [facility] [address] [place] [address] Advanced Medicine 1[address] [place] [address] Cynthia Boyer, PhD [address] [place] [address] Social History Tobacco Use Types Packs/Day Years [...] on file 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 FIELD SERVICE SPECIALIST Gender Identity Not on file Sexual Orientation Not on file documented as of this encounter Progress Notes * Cynthia Boyer, PhD - 07/23/2022 3:00 PM CDT [facility] PSYCHOLOGY SERVICES PROGRESS NOTE TELEPSYCHOLOGY VISIT Patient Identifying Data Patient Name: Aleah Gerber : 1955 Date of Session: 07/23/22 Telehealth Modality: Zoom Individual psychotherapy session was completed via telehealth. Written informed consent for telehealth was obtained from patient prior initial session. Potential risk and benefits of telehealth sessions were discussed with patient. Requirements for telehealth sessions were also covered, including need for private space, limited distractions, no one else present without both parties consent. Back-up plan was made at beginning of session in case of unexpected technology disruptions. Nearest emergency contact identified. Provider was located in the [facility] for the duration of this appointment. Patient confirmed current location is: [address] [place] [phone] Primary (home) DSM-5 Diagnostic Impression: Adjustment disorder with anxiety F43.22 Intervention: ACT Duration: 50 minutes Session Content: Patient joined zoom appointment at scheduled time. She reports significant improvement in mood since last appointment and said her family has pointed this out as well. She engaged in behavioral activation which helped significantly with motivation. She has enjyoable plans for the next few weeks. She said she is doing well at this time and denied any further concerns. We reviewed relapse prevention and also agreed to follow-up in one month for a checkin. Progress Towards Treatment Goals: Patient is receptive to interventions and making adequate progress towards treatment goals at this time. Mental Status: Mood: Within normal limits Affect: Broad Congruency: Mood congruent Level of consciousness & Orientation: Alert and oriented to person, place, time Appearance: Dressed casually, appropriately groomed Behavior/Motor: Within normal limits Speech: Within normal limits Concentration: No deficits noted Memory: Intact Thought Process: Linear and coherent Insight: High Judgment: Intact Risk Assessment: The patient flatly denied risk of harm to self or others and there was no evidence of such during our meeting. The patient was deemed to be sustainable as an outpatient. Plan Patient will follow up in 1 month for continued individual psychotherapy. Cynthia Boyer Psy.D. Licensed Psychologist documented in this encounter Plan of Treatment Not on file documented as of this encounter Visit Diagnoses Not on filedocumented in this encounter Care Teams Professional Services Manager Relationship Specialty Start Date End Date Dat Benito DO [address] [place] [address] PCP - General Internal Medicine 09/28/21 Aft, Kianna Machado MD PhD [address] [place] [address] Surgeon Surgical Oncology 11/22/17 Santiago Gilbert MD [address] [place] [address] Manufacturing Quality Inspector Gastroenterology 11/22/17 Abbi Ventura MD [facility] [address] [place] [address] Medical Oncologist/Nurse Ldr Medical Oncology 12/03/18 Montse Thompson MD [address] [place] [address] Consulting Physician Gynecologic Oncology 12/03/18 Lela Hardy MD PhD [address] [place] [address] Radiation Oncologist Radiation Oncology 12/23/18 Trena Obando MD [address] [place] [address] Consulting Physician Neurology 09/18/21 documented as of this encounter
--- OUTSIDE RECORDS SUMMARY | 2024-04-24 13:36 | XMS_ITS | Encounter Summary ---
Author Organization [facility] Address [address] [place] [address] Phone Care Team Providers Care Erp Engineer Name Role Phone Aft, Kianna Machado MD PhD Unavailable [phone] Santiago Gilbert MD Unavailable [phone] Abbi Ventura MD Unavailable Montse Thompson MD Unavailable [phone] Lela Hardy MD PhD Unavailable [phone] Trena Obando MD Unavailable Dat Benito DO Primary Care Provider [phone] Reason for Referral * MRI/CAT/PET Scan (Routine) - Closed Specialty Diagnoses / Procedures Referred By Contac t Referred To Contact Radiology Diagnoses Malignant 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, 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) Procedures CT Chest Abdomen Pelvis W Contrast Abbi Ventura MD [address] [facility] [address] [place] [address] Phone: tel: fax: [facility] Referral ID Status Reason Start Date Expiration Date Visits Re quested Visits Authorized [id number] Closed 10/25/2022 11/24/2023 1 1 Encounter Details Date Type Department Care Team (Late st Contact Info) Description 10/25/2022 3:30 PM CDT Office Visit [facility] Oncology [address] [place] [address] Abbi Ventura MD [address] [facility] [address] [place] [address] Malignant neoplasm of upper-inner quadrant of left [...] file 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 RN ADVANCED Gender Identity Not on file Sexual Orientation Not on file documented as of this encounter Last Filed Vital Signs Vital Sign Reading Time Taken Comments Blood Pressure 120/77 10/25/2022 3:16 PM CDT Pulse 90 10/25/2022 3:16 PM CDT Temperature 36.3 ??C (97.4 ??F) 10/25/2022 3:16 PM CD T Respiratory Rate 18 10/25/2022 3:16 PM CDT Oxygen Saturation 96% 10/25/2022 3:16 PM CDT Inhaled Oxygen Concentration - - Weight 106.2 kg (234 lb 3.2 oz) 10/25/2022 3:16 PM CDT Height - - Body Mass Index 34.59 10/25/2022 1:24 PM CDT documented in this encounter Progress Notes * Abbi Ventura MD - 10/25/2022 3:30 PM CDT Images from the original [...] positive and VUS in BRIP1 and NBN. InNetwork showed no mutation in MLH 1 or PMS2 suggesting that the patient does not have Grullon syndrome. 4. Allergic reaction to oxaliplatin during cycle 6 of FOLFOX 5. DYPD genotype normal. 6. DVT/PE diagnosed 05/28/18 7. 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 Pathology from mass biopsy was consistent with adenocarcinoma, with mucinous component, with pathology of polyps ranging from tubular adenoma to tubo-villous adenoma. Staging chest/abdominal/pelvic CT scan in October 2017, [...] of adjuvant chemotherapy with 5FU/LV on 05/21/18 BREAST CANCER Patient underwent a diagnostic mammogram [...] ~ 1.4 cm, Grade 3, ER 0, HI 0, HER-2 IHC 0. Partial mastectomy and [...] 04/13/22 showed invasive ductal carcinoma. ER negative HI negative Her 2 negative Bilateral mastectomy 05/22/22 [...] tumor, we elected to observe. Interval History Right arm discomfort has resolved. Has fullness in left chest wall anterior infraclavicular area but no pain. Continues to have mild peripheral neuropathy. Review of Systems Review of systems positive for symptoms as per interval history. All other review of systems negative. Objective Vitals: Vitals BP 120/77 (BP Location: Other (Comment)) Pulse 90 Temp 36.3 ??C (97.4 ??F) (Temporal) Resp 18 Wt 106.2 kg (234 lb 3.2 oz) LMP (LMP Unknown) SpO2 96% BMI 34.59 kg/m?? PERFORMANCE STATUS: ECOG 1 SKIN: Normal [...] 1.6 Lab Results Component Value Date SODIUM 143 07/04/2022 POTASSIUM 4.8 07/04/2022 CO2 28 07/04/2022 BUNSER 16 07/04/2022 GLUCOSE 158 07/04/2022 CREATININE 1.32 (H) 07/04/2022 CALCIUM 9.6 07/04/2022 CHLORIDE 109 07/04/2022 ALBUMIN 4.3 07/04/2022 AST 16 07/04/2022 ALT 13 07/04/2022 ALKPHOS 98 07/04/2022 BILITOT 0.3 07/04/2022 PROT 7.0 07/04/2022 ANIONGAP 6 07/04/2022 Tumor Marker History Latest Ref Rng & Units 02/01/2022 15:28 07/04/2022 12:41 Tumor Markers CEA <=5.0 ng/mL 2.1 1.6 CA 125 ag 0.0 - 38.1 units/mL 9.[address] Chest Abdomen Pelvis W Contrast Narrative: EXAMINATION: Computed tomography of the chest, abdomen and pelvis with intravenous contrast HISTORY: 66-year-old woman with breast cancer status post bilateral mastectomy in 2021. Patient also has a history of colon cancer status post hemicolectomy in 2018 TECHNIQUE: Transaxial computed tomographic images of the chest, abdomen and pelvis were obtained with intravenous contrast according to the standard protocol after the uneventful administration of 88 mL Opti-Ray 350 intravenous contrast. COMPARISON: Chest abdomen pelvis CT 01/27/2022, abdomen MRI 01/27/2022 FINDINGS: Chest: No suspicious pulmonary nodules. Interval resolution of previous left upper lobe groundglass nodule. Heart size is normal. No pericardial effusion. No axillary, supraclavicular or mediastinal lymphadenopathy. Changes of interval bilateral mastectomy with a large fluid collection in the left mastectomy site measuring 17.4 cm x 5.3 cm. Abdomen/Pelvis: Diffuse hepatic steatosis. There is hypoattenuation in segment 4 corresponding to the location of focal fat on a prior abdomen MRI. Cholelithiasis without cholecystitis. Adrenal glands are normal. The left kidney is mildly atrophic. No hydronephrosis in either kidney. The spleen is normal. The pancreas is normal. Postsurgical changes of left hemicolectomy. There is no bowel obstruction. No lymphadenopathy in the abdomen or pelvis. Status post hysterectomy. No aggressive osseous lesion. Impression: 1. No evidence of metastatic or recurrent disease in the chest, abdomen or pelvis. 2. Postsurgical changes of bilateral mastectomy, with a large fluid collection in the left chest wall likely a seroma. Dictated by: Alex Bullock M.D. The radiology attending physician has personally reviewed this study, and had reviewed and/or edited this written report and agrees with it. Electronically signed by: Willie Bullock M.D. Recent labs, radiology and pathology reviewed in [facility] ASSESSMENT: Stage I [id number] right breast cancer -ER negative HI negative Her 2 negative- Mammaprint could not be done due to insufficient tumor. 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 If that is negative, we will stop ordering routine scans as she will be 5 yrs out from colon cancer diagnosis. F/u Dr. Gilbert, her local tomato grader, regarding screening colonoscopy Aleah Gerber will follow up as directed above, she was encouraged to call in the interim with questions or concerns. We will continue to monitor and review for side effects from treatment. Abbi Ventura MD car shunter Division of Oncology Section of Medical Oncology [facility] Attendant [facility] completed by using [employer] Direct speaking software, therefore, transcriptionvariances may occur. documented in this encounter Plan of Treatment Not on file documented as of this encounter Results * (ABNORMAL) CBC with auto differential (01/24/2023 1:08 PM CDT) WBC 9.7 3.8 - 9.9 K/cumm [facility] Comment:Testing performed by : [address] [address] Hgb 11.6(L) 11.9 - 15.5 g/dL [facility] Comment:Testing performed by : [address] [address] Hct 36.1 35.6 - 45.5 % [facility] Comment:Testing performed by : [address] [address] Plt 189 150 - 400 K/cumm [facility] Comment:Testing performed by : [address] [address] MPV 9.7 9.1 - 12.3 fL [facility] RBC 4.03 3.90 - 5.20 M/cumm [facility] MCV 89.6 81.3 - 96.4 fL [facility] MCH 28.8 27.1 - 33.3 pg [facility] MCHC 32.1(L) 32.3 - 35.7 g/dL [facility] RDW CV 13.5 11.1 - 14.9 % [facility] RDW SD 44.5 35.7 - 48.1 fL [facility] NRBC abs 0.00 0.00 - 0.01 K/cumm [facility] Blood 01/24/2023 1:08 PM CDT 01/24/2023 1:09 PM CDT us Abbi Ventura MD LAB BLOOD ORDERABLES Final Resul t [facility] Department [place] [address] * (ABNORMAL) Comprehensive metabolic panel (01/24/2023 1:08 PM CDT) Sodium 140 135 - 145 mmol/L [facility] Comment:Testing performed by : [facility], [address] [place] [address] Potassium, pl 4.4 3.3 - 4.9 mmol/L [facility] Chloride 107 97 - 110 mmol/L [facility] CO2 25 22 - 32 mmol/L [facility] Anion gap 8 2 - 15 mmol/L [facility] BUN 17 6 - 25 mg/dL [facility] Creatinine 1.46(H) 0.60 - 1.10 mg/dL [facility] Glucose 138 70 - 199 mg/dL [facility] Comment: Interpretive Data Fasting glucose [...] 2022. Calcium 9.2 8.5 - 10.3 mg/dL [facility] Bilirubin, total 0.5 0.1 - 1.2 mg/dL [facility] Protein, pl 7.3 6.5 - 8.5 g/dL [facility] Albumin 4.3 3.5 - 5.0 g/dL [facility] Alk phos 97 40 - 130 Units/L [facility] ALT 10 7 - 45 Units/L [facility] AST 17 10 - 45 Units/L [facility] Blood 01/24/2023 1:08 PM CDT 01/24/2023 1:09 PM CDT Abbi Ventura MD LAB BLOOD ORDERABLES Final Resul t Performing Organization Address [facility] de Phone Number [facility] Department [place] [address] * CEA (01/24/2023 1:08 PM CDT) CEA 1.5 <=5.0 ng/mL [facility] Comment: Interpretive Data: Reference Range: Non-Smokers: 0.0 ? 5.0 ng/mL Smokers: 0.0 ? 6.5 ng/mL The Bo CEA assay procedure was used. Results from different manufacturers or methods may not be comparable. Serial testing should be performed using the same method. Current interpretive data was last revised 2021. Blood 01/24/2023 1:08 PM CDT 01/24/2023 3:45 PM CDT Abbi Ventura MD LAB BLOOD ORDERABLES Final Resul t Performing Organization Address [facility] de Phone Number [facility] Department [place] [address] * CT Chest Abdomen Pelvis W Contrast [...] seroma. Electronically signed by: Corwin Cleveland M.D. Abbi Ventura MD IMG CT PROCEDURES Final Result documented in this encounter [...] Date ONCBCN CLINIC APPOINTMENT REQUEST 2 023 10/25/2022 ONCBCN LAB APPOINTMENT 1 01/24/2023 documented in this encounter Care Teams Erp Engineer Relationship Specialty Start Date End Date Dat Benito DO [address] [place] [address] PCP - General Internal Medicine 09/28/21 Aft, Kianna Machado MD PhD [address] [place] [address] Surgeon Surgical Oncology 11/22/17 Santiago Gilbert MD [address] [place] [address] Laboratory Engineer Gastroenterology 11/22/17 Abbi Ventura MD [address] [place] [address] [address] [place] [address] Medical Oncologist/Bus Aide Medical Oncology 12/03/18 Montse Thompson MD [address] [facility] [address] [place] [address] Consulting Physician Gynecologic Oncology 12/03/18 Lela Hardy MD PhD [address] [facility] [address] [place] [address] Radiation Oncologist Radiation Oncology 12/23/18 Trena Obando MD [address] [place] [address] Consulting Physician Neurology 09/18/21 documented as of this encounter
--- OUTSIDE RECORDS SUMMARY | 2024-04-24 13:36 | XMS_ITS | Encounter Summary ---
Author Organization [facility] Address [address] [place] [address] Phone Care Team Providers Care Helicopter Dispatcher Name Role Phone Aft, Kianna Machado MD PhD Unavailable [phone] Santiago Gilbert MD Unavailable [phone] Abbi Ventura MD Unavailable Montse Thompson MD Unavailable [phone] Lela Hardy MD PhD Unavailable [phone] Trena Obando MD Unavailable [phone] Dat Benito DO Primary Care Provider [phone] Encounter Details Date Type Department Care Team (Late st Contact Info) Description 11/19/2022 Orders Only [facility] Obstetrics and Gynecology [address] [facility] Advanced Medicine 13th [place] [address] [place] [id number] Evon Arreola RN BRCA2 gene mutation positive in female (Primary Dx) Social History Tobacco Use Types [...] on file 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 Gender Identity Not on file Sexual Orientation Not on file documented as of this encounter Plan of Treatment Not on file documented as of this encounter Visit Diagnoses Diagnosis BRCA2 gene mutation positive in female- Primary documented in this encounter Care Teams Helicopter Dispatcher Relationship Specialty Start Date End Date Dat Benito DO [address] [place] [address] PCP - General Internal Medicine 09/28/21 Aft, Kianna Machado MD PhD [address] [place] [address] Surgeon Surgical Oncology 11/22/17 Santiago Gilbert MD [address] [place] [address] Sap Bi Developer Gastroenterology 11/22/17 Abbi Ventura MD [address] [place] [address] [address] [place] [address] Medical Oncologist/School Laboratory Technician Medical Oncology 12/03/18 Montse Thompson MD [address] [facility] [address] [place] [address] Consulting Physician Gynecologic Oncology 12/03/18 Lela Hardy MD PhD [address] [place] [address] Radiation Oncologist Radiation Oncology 12/23/18 Trena Obando MD [address] [place] [address] Consulting Physician Neurology 09/18/21 documented as of this encounter
--- OUTSIDE RECORDS SUMMARY | 2024-04-24 13:36 | XMS_ITS | Encounter Summary ---
Author Organization [facility] Address [address] [place] [address] Phone Care Team Providers Care Batch Unit Treater Name Role Phone Aft, Kianna Machado MD PhD Unavailable [phone] Santiago Gilbert MD Unavailable [phone] Abbi Ventura MD Unavailable Montse Thompson MD Unavailable [phone] Lela Hardy MD PhD Unavailable [phone] Trena Obando MD Unavailable [phone] Dat Benito DO Primary Care Provider [phone] Encounter Details Date Type Department Care Team (Late st Contact Info) Description 08/31/2022 Telephone [facility] Oncology [address] [place] [address] Cat Ivan Social History Tobacco Use Types [...] on file 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 Gender Identity Not on file Sexual Orientation Not on file documented as of this encounter Miscellaneous Notes * Telephone Encounter - Cat Ivan - 08/31/2022 3:16 PM CDT Left message for patient regarding 10/17 apt being moved to 10/25/2022 documented in this encounter Plan of Treatment Not on file documented as of this encounter Visit Diagnoses Not on filedocumented in this encounter Care Teams Batch Unit Treater Relationship Specialty Start Date End Date aDt Benito DO [address] [place] [address] PCP - General Internal Medicine 09/28/21 Aft, Kianna Machado MD PhD [address] [place] [address] Surgeon Surgical Oncology 11/22/17 Santiago Gilbert MD [address] [place] [address] Loan Processor Gastroenterology 11/22/17 Abbi Ventura MD [facility] [address] [place] [address] Medical Oncologist/Photo Print Specialist Medical Oncology 12/03/18 Montse Thompson MD [address] [place] [address] Consulting Physician Gynecologic Oncology 12/03/18 Lela Hardy MD PhD [address] [place] [address] Radiation Oncologist Radiation Oncology 12/23/18 Trena Obando MD [address] [place] [address] Consulting Physician Neurology 09/18/21 documented as of this encounter
--- OUTSIDE RECORDS SUMMARY | 2024-04-24 13:36 | XMS_ITS | Encounter Summary ---
Author Organization [facility] Address [address] [place] [address] Phone Care Team Providers Care Bender Hand Name Role Phone Aft, Kianna Machado MD PhD Unavailable [phone] Santiago iGlbert MD Unavailable [phone] Abbi Ventura MD Unavailable Montse Thompson MD Unavailable [phone] Lela Hardy MD PhD Unavailable [phone] Trena Obando MD Unavailable [phone] Dat Benito DO Primary Care Provider [phone] Encounter Details Date Type Department Care Team (Late st Contact Info) Description 01/30/2023 Telephone [facility] Oncology [address] [place] [phone] Uriel Corral Social History Tobacco Use Types [...] on file 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 Patient states that she's previously seen them in the past. Requested Brain MRI results faxed to PCP Dr. Benito. Faxed as per patient request. She will plan to follow up with his office and call our office with any questions/concerns. Uriel Corral RN documented in this encounter Plan of Treatment Not on file documented as of this encounter Visit Diagnoses Not on filedocumented in this encounter Care Teams Bender Hand Relationship Specialty Start Date End Date Dat Benito DO [address] [place] [address] PCP - General Internal Medicine 09/28/21 Aft, Kianna Machado MD PhD [address] [place] [address] Surgeon Surgical Oncology 11/22/17 Santiago Gilbert MD [address] [place] [address] Yardage Caller Gastroenterology 11/22/17 Abbi Ventura MD [address] [place] [address] [address] [place] [address] Medical Oncologist/Deputy Attorney General Medical Oncology 12/03/18 Montse Thompson MD [address] [facility] [address] [place] [address] Consulting Physician Gynecologic Oncology 12/03/18 Lela Hardy MD PhD [address] [facility] [address] [place] [address] Radiation Oncologist Radiation Oncology 12/23/18 Trena Obando MD [facility] [address] [place] [address] Consulting Physician Neurology 09/18/21 documented as of this encounter
--- OUTSIDE RECORDS SUMMARY | 2024-04-24 13:36 | XMS_ITS | Encounter Summary ---
Author Organization [facility] Address [address] [place] [address] Phone Care Team Providers Care Custom Marine Canvas Fabricator Name Role Phone Aft, Kianna Machado MD PhD Unavailable [phone] Santiago Gilbert MD Unavailable [phone] Abbi Ventura MD Unavailable Montse Thompson MD Unavailable [phone] Lela Hardy MD PhD Unavailable Trena Obando MD Unavailable [phone] Dat Benito DO Primary Care Provider [phone] Encounter Details Date Type Department Care Team (Late st Contact Info) Description 09/21/2022 Telephone [facility] Obstetrics and Gynecology [address] [facility] Medicine 13th [place] [address] [place] [address] Rosanna Callejas BS Social History Tobacco Use Types Packs/Day Years [...] you are drinking? Patient does not drink 01/17/202 3 Q3: How often do you have si x or more drinks on one occasion? 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 documented in this encounter Plan of Treatment Not on file documented as of this encounter Visit Diagnoses Not on filedocumented in this encounter Care Teams Custom Marine Canvas Fabricator Relationship Specialty Start Date End Date Dat Benito DO [address] [place] [address] PCP - General Internal Medicine 09/28/21 Aft, Kianna Machado MD PhD [address] [place] [address] Surgeon Surgical Oncology 11/22/17 Santiago Gilbert MD [address] [place] [address] Vallez Filter Operator Gastroenterology 11/22/17 Abbi Ventura MD [address] [place] [address] [address] [place] [address] Medical Oncologist/Food Service Manager Medical Oncology 12/03/18 Montse Thompson MD [facility] [place] [address] Consulting Physician Gynecologic Oncology 12/03/18 Lela Hardy MD PhD [address] [facility] [address] [place] [address] Radiation Oncologist Radiation Oncology 12/23/18 Trena Obando MD [address] [place] [address] Consulting Physician Neurology 09/18/21 documented as of this encounter
--- OUTSIDE RECORDS SUMMARY | 2024-04-24 13:36 | XMS_ITS | Encounter Summary ---
Author Organization [facility] Address [address] [place] [address] Phone Care Team Providers Care Software Test Automation Engineer Name Role Phone Aft, Kianna Machado MD PhD Unavailable [phone] Santiago Gilbert MD Unavailable [phone] Abbi Ventura MD Unavailable Montse Thompson MD Unavailable [phone] Lela Hardy MD PhD Unavailable [phone] Trena Obando MD Unavailable [phone] Dat Benito DO Primary Care Provider [phone] Reason for Referral * MRI/CAT/PET Scan (Routine) - Closed Specialty Diagnoses / Procedures Referred By Contac t Referred To Contact Radiology Diagnoses At high risk for pancreatic cancer BRCA2 gene mutation positive Procedures MRI Abdomen MRCP W WO Contrast Rosa Shaw NP [address] [facility] [address] [place] [address] Phone: tel: fax: [facility] [address] [place] [address] Referral ID Status Reason Start Date Expiration Date Visits Re quested Visits Authorized [id number] Closed 10/25/2022 11/24/2023 1 1 Reason for Visit * Consultation (Routine) - Closed Specialty Diagnoses / Procedures Referred By Vijaya simpson Referred To Contact Gastroenterology Diagnoses At high risk for pancreatic cancer Abbi Ventura MD [address] [facility] [address] [place] [address] Phone: tel: fax: [facility] (All Locations) Referral ID Status Reason Start Date Expiration Date V isits Requested Visits Authorized [id number] Closed Specialty Services Required 07/06/2022 08/05/2023 1 1 Encounter Details Date Type Department Care Team (Late st Contact Info) Description 10/25/2022 1:30 PM CDT Office Visit [facility] Gastroenterology [facility] Medical Office Building [address] [place] [address] Roe Fofana MD [address] [place] [address] BRCA2 gene mutation positive (Primary Dx); At high risk for pancreatic cancer; Family history of pancreatic cancer Social History Tobacco Use Types Packs/Day Years [...] on file 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 STOCK CHECKERER Gender Identity Not on file Sexual Orientation Not on file documented as of this encounter Last Filed Vital Signs Vital Sign Reading Time Taken Comments Blood Pressure 137/84 10/25/2022 1:24 PM CDT Pulse 73 10/25/2022 1:24 PM CDT Temperature - - Respiratory Rate - - Oxygen Saturation - - Inhaled Oxygen Concentration - - Weight 104.3 kg (230 lb) 10/25/2022 1:24 PM CDT Height 175.3 cm (5' 9 ) 10/25/2022 1:24 PM CDT Body Mass Index 33.97 10/25/2022 1:24 PM CDT documented in this encounter Progress Notes * Roe Fofana MD - 10/25/2022 1:30 PM CDT Images from the original note were not included. [facility] Gilberto Callejas Department of Medicine Division of Gastroenterology Interventional & Pancreaticobiliary Endoscopy Program 10/25/[address] Benito and Abbi, Thank you for allowing me the opportunity to see your patient, Aleah Gerber (: 1955) in the [facility] at [facility]. Below, please see my complete clinic note with the assessment and plan noted at the bottom. Please do not hesitate to contact me at [phone] should you have any questions regarding this patient's care. Sincerely, Roe Fofana MD armored car messenger [facility] Chief Complaint: Patient referred for evaluation of candidacy for pancreatic cancer screening in the setting of a germline BRCA2 mutation HPI 67 y.o. with a PMH of colon cancer s/p hemicolectomy (2017), breast cancer (11/2017, 03/2022) s/p bilateral mastectomy and R sentinel lymph node bx, depression, HTN, diabetes, and fibromyalgia, here to discuss pancreatic cancer screening with BRCA2 gene mutation. 06/25/22 CT C/A/P IMPRESSION: 1. No evidence [...] stools, has trialed fiber in the past. Family history Sister- pancreatic cancer (40's) Father- prostate cancer (67) 2 sisters and 3 brothers without genetic testing. Daughter negative for BRCA2. ROS CONSTITUTIONAL: as above EYES: no complaints [...] SOB (shortness of breath) 2018 2/2 chemotherapy TIA (transient ischemic attack) 2007 Type [...] Breast Needle Localization partial mastectomy (L), Biopsy [place] Lymph Node With Lymphoscintigraphy (L), Insertion Port A Cath (R) with ultrasound and fluroscopy PORT REMOVAL 04/09/2019 PORTACATH PLACEMENT 01/2018 right upper chest PORTACATH PLACEMENT Right 2018 TUBAL LIGATION 1992 VAGINAL DELIVERY ALLERGIES Allergies Allergen Reactions Oxaliplatin Swollen tongue Throat swelling Tetanus Vaccines And Toxoid Swelling and Rash Current Outpatient Medications Medication Sig Dispense Refill acetaminophen (TYLENOL) 500 mg tablet TAKE 2 TABLETS BY MOUTH EVERY 6 HOURS FOR 5 DAYS albuterol HFA (PROVENTIL HFA,VENTOLIN HFA,PROAIR HFA) 90 [...] 1 tablet/capsule (25 mg total) by mouth every morning docusate sodium (COLACE) 100 mg capsule Take 1 capsule (100 mg total) by mouth 2 (two) times a day [address] (CYMBALTA) 60 mg capsule Take 1 capsule (60 mg total) by mouth nightly fluticasone propion-salmeteroL (ADVAIR DISKUS) 500-50 mcg/dose diskus inhaler Inhale 1 puff 2 (two)times a day Rinse mouth with water after use. Do not swallow. (Patient taking differently: Inhale 1puff 2 (two) times a day Rinse mouth with water after use. Do not swallow.) 60 each 5 fluticasone propionate (FLONASE) 50 mcg/actuation nasal spray Administer 1 spray into each nostril 2 (two) times a day levothyroxine (SYNTHROID) 75 mcg tablet Take 1 [...] Tobacco: reports that she quit smoking about 8 years ago. Her smoking use included cigarettes. She started smoking about 50 years ago. She smoked an average of 1 pack per day. She has never used smokeless tobacco. EtOH: denies Illicit: denies PHYSICAL EXAM BP 137/84 Pulse 73 Ht 175.3 cm (5' 9 ) Wt 104.3 kg (230 lb) LMP (LMP Unknown) BMI 33.97 kg/m?? GENERAL: Well developed well nourished, in no [...] Latest Ref Rng & Units 02/01/2022 15:28 07/03/2022 13:35 07/04/2022 12:41 10/25/2022 15:04 Labs-Chem/LFT Sodium 135 - 145 mmol/L 139 143 139 Creatinine 0.60 - 1.10 mg/dL 1.25 1.32 1.47 Bilirubin, total 0.1 - 1.2 mg/dL 0.3 0.3 0.4 AST 10 - 45 Units/L 18 16 18 ALT 7 - 45 Units/L 12 13 12 CrCl- Actual Body Weight (Cockcroft-Gault) 78.9 70.3 75.4 64 Hematology Lab History Latest Ref Rng & [...] 0.8 - 3.3 K/cumm 1.8 1.5 1.6 ASSESSMENT AND PLAN 67 y.o. female with a PMH of colon cancer s/p hemicolectomy (2018), breast cancer (11/2017, 03/2022)s/p bilateral mastectomy and R sentinel lymph node bx, depression, HTN, diabetes, and fibromyalgia,here to discuss pancreatic cancer screening with BRCA2 gene mutation. Patient is noted with a firstdegree relative (sister) with pancreatic cancer in her 40s. BRCA2/Family history of pancreatic cancer: It is estimated that up to 10% of pancreatic ductal adenocarcinoma (PDAC) has a hereditary basis with an ~80% penetrance ([facility] Genes and Development 2014). While incidence in the general population(approximately 10/100,000 people) is too small to warrant screening, expert consensus guidelines have recently been established providing recommendations for screening in individuals at higher risk including those with CDKN2A mutations, Grullon syndrome, also known as Hereditary Non-Polyposis Colon Cancer (HNPCC), pALB2 mutations, as well as those with BRCA1/2 mutations especially in the context offamily members with a history of pancreatic cancer (Norberto et al Gut 2012). In addition to breast and ovarian cancer, pancreatic cancer occurs much more commonly in patients with BRCA2 mutations and to a lesser extent, BRCA1 mutations. Estimates from 173 breast/ovarian cancer families (3,728 individuals) found the relative risk of pancreatic cancer in patients with BRCA2 mutations to be markedly increased at 3.51 times (CI:1.87-6.58) compared with the general population (Breast Cancer Linkage Consortium JNCI 1999). In addition, the risk of pancreatobiliary cancer was markedly elevated at 4.97 times (CI:1.50-16.52) compared with the general population. BRCA2 mutations are thought to occur in up to 10% of sporadic PDAC, and specific germline mutations in Ashkenazi [employer] cohorts (germline 6174delT BRCA2 mutation) have been well described ([facility] Genes and Development 2014; Toya et al Cancer Res 1996). BRCA1 mutation carriers have also been described to have a more modestly elevated risk of pancreatic cancer, estimated at 2.26 times (CI:1.26 to 4.06) compared with the general population, which increased to 3.10 times in patients <65 years of age (Jarvis et al JNCI 2002). It islikely that germline mutations in BRCA1/2, ROMINA, or PALB2 in human familial pancreatic cancer contribute to defective DNA repair and thus the accumulation of damaged DNA. The relevance of this is thataccumulation of damaged DNA can trigger different states - senescence, apoptosis, or unregulated cell division - that may lead to formation of cancer. While screening in the general population is not feasible given the low incidence of PDAC, screening in high risk cohorts may allow for early detection of resectable, and potentially curable tumors. Clinical outcome of patients with smaller, non-metastasized tumors have a significantly improved 5-year survival. Generally the current recommendation is that patients who are first degree relatives of patients with PDAC from a familial PDAC asha with at least 2 affected first degree relatives, patients with Peutz Jegher's syndrome, and patients with CDKN2A/BRCA2/Grullon mutations especially withfirst degree relative with pancreatic cancer would qualify for screening.(Norberto et al Gut 2012) In t erms of modality, interval, and age to start/stop, there remains debate but generally annual EUS/MRI has been utilized. With regards to the age that this screening should begin, the CAPS guidelines would recommend generally at age 45, based on the observation that outside of PJS, all other syndromic PDAC associated with family histories typically occur in the 5th, 6th, and 7th decades of life (Darrel et al Gastro 2015). We discussed that screening in these cohorts can identify abnormalities, usually small cysts of unclear clinical significance, in up to 30-40% of patients which may generate further surveillance or invasive testing. (Norberto Gastro 2012) We also discussed that while highly specific, EUS-FNA has variable sensitivity for the detection of high risk or malignant cysts utilizing cytology alone. We also discussed that unlike breast or colorectal cancer where diagnosis of a T1 lesion is associated with a very high >90% 5 year survival after surgical resection, pancreatic cance r, even when surgically resected, still carries a 20-30% 5 year survival today. Overall, however, recent evidence has demonstrated significantly improved survival (85% vs 25% at 3 years) in high riskpatients undergoing screening (Norberto et al Gastro 2018). As this patient has a confirmed mutation with family history of pancreatic cancer, we would recommend screening for pancreatic cancer. Most recent CT C/A/P on 07/03/22 with normal pancreas. - Recommend MRCP in June 2023, then if no change will proceed with an EUS in 2024. Recommend routine fasting glucose and A1c monitoring with PCP. - Follow up with local GI for Colonoscopy (most recent 2021) and constipation in the setting or prior history of colon cancer. - Call our office if she were to develop abdominal pain, fever, jaundice, early satiety, unintentional weight loss, or new diabetes. Aleah was given ample time to ask questions and have them answered. She should follow up in June 2023 or sooner if needed. I saw and examined the patient and agree with the plan of care as discussed with my Nurse Practitioner, Rosa Shaw NP. I have reviewed her history, physical and assessement for completion and edited as noted above. documented in this encounter Plan of Treatment Not on file documented as of this encounter Results * MRI Abdomen MRCP W WO Contrast (06/27/2023 11:15 AM STOCK CHECKERER) Anatomical Region Laterality Modality Body N/A Magnetic Resonan ce 06/27/2023 12:3 9 PM STOCK CHECKERER Impressions 06/27/2023 1:32 PM STOCK CHECKERER No evidence of primary malignancy or metastatic disease in the abdomen. Dictated by: Lily Rashid M.D. The radiology attending physician has personally reviewed this study, and had reviewed and/or edited this written report and agrees with it. Electronically signed by: Nicholas Olmos M.D. Narrative 06/27/2023 1:32 PM STOCK CHECKERER EXAMINATION: 1. MAGNETIC RESONANCE IMAGING OF THE [...] it. Electronically signed by: Nicholas Olmos M.D. Rosa Shaw NP IMG MRI PROCEDURES Bethanie l Result documented in this encounter Visit Diagnoses Diagnosis BRCA2 gene mutation positive- Primary At high risk for pancreatic cancer Family history of pancreatic cancer Family history of malignant neoplasm of gastrointestinal tract At high risk for pancreatic cancer BRCA2 gene mutation positive documented in this encounter Historical Medications * This list may reflect changes made after this encounter. rosuvastatin (CRESTOR) 10 mg tablet Take 1 tablet (10 mg total) by mouth daily added in this encounter Orders Outpatient Referral Count Last Ordered Date Fir st Ordered Date AMB REFERRAL TO GASTROENTEROLOGY 1 10/26/19 23 documented in this encounter Care Teams Software Test Automation Engineer Relationship Specialty Start Date End Date Dat Benito DO [address] [place] [address] PCP - General Internal Medicine 09/28/21 Aft, Kianna Machado MD PhD [address] [place] [address] Surgeon Surgical Oncology 11/22/17 Santiago Gilbert MD [address] [place] [address] Other Sports Coach Or Instructor Gastroenterology 11/22/17 Abbi Ventura MD [address] [facility] [address] [place], [place] [id number] Medical Oncologist/Fitter Placer Medical Oncology 12/03/18 Montse Thompson MD [address] [facility] [address] [place], [place] [id number] Consulting Physician Gynecologic Oncology 12/03/18 Lela Hardy MD PhD [address] [facility] [address] [place] [address] Radiation Oncologist Radiation Oncology 12/23/18 Trena Obando MD [address] [place], [place] [id number] Consulting Physician Neurology 09/18/21 documented as of this encounter
--- OUTSIDE RECORDS SUMMARY | 2024-04-24 13:37 | XMS_ITS | Encounter Summary ---
Author Organization [facility] Address [address] [place] [address] Phone Care Team Providers Care Structural Steel Erection Supervisor Name Role Phone AftKianna MD PhD Unavailable [phone] Santiago Gilbert MD Unavailable [phone] Abbi Ventura MD Unavailable Montse Thompson MD Unavailable [phone] Lela Hardy MD PhD Unavailable [phone] Trena Obando MD Unavailable Dat Benito DO Primary Care Provider [phone] Reason for Visit * Reason Comments Follow-up Encounter Details Date Type Department Care Team (Late st Contact Info) Description 06/04/2022 2:55 PM CLAIM APPROVER Office Visit [facility] 5th [place] [address] [place] [address] AfKianna simpson MD PhD [address] [place] [address] Malignant 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, 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) (HCC) (Primary Dx) Social History Tobacco Use [...] on file 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 CLAIM APPROVER Gender Identity Not on file Sexual Orientation Not on file documented as of this encounter Last Filed Vital Signs Vital Sign Reading Time Taken Comments Blood Pressure - - Pulse - - Temperature - - Respiratory Rate - - Oxygen Saturation - - Inhaled Oxygen Concentration - - Weight 108.9 kg (240 lb) 06/04/2022 3:03 PM CLAIM APPROVER Height 175.3 cm (5' 9 ) 06/04/2022 3:03 PM CLAIM APPROVER Body Mass Index 35.44 06/04/2022 3:03 PM CLAIM APPROVER documented in this encounter Progress Notes * Kianna Bunch MD PhD - 06/04/2022 2:55 PM CST Kianna Bunch M.D., Ph.D., [facility] Section of Surgical Oncology and Endocrinology [facility] of [address], [address] [facility], [place] [address] - NAME: Aleah Gerber : 1955 DATE: 06/04/2022 CHIEF COMPLAINT: No chief complaint on file. HISTORY OF PRESENT ILLNESS: The patient is a 66 y.o. female status post bilateral mastectomy The patient presents for she first postoperative visit. The patient states that she has done well post-operatively. PHYSICAL EXAMINATION: Vitals LMP (LMP Unknown) GENERAL: She is a well-developed, well-nourished woman in no acute distress. HEENT: Within normal limits. EXTREMITIES: Warm without edema. NEUROLOGICAL: She is alert and oriented x 3. BREAST EXAMINATION: The patient appears well. she wound is healing nicely. There is no evidence of infection. The drains were removed in clinic PATHOLOGY: A. Lymph node, right axillary, sentinel, excision [...] (0/3) - No invasive carcinoma identified ASSESSMENT: Right breast cancer PLAN: I reviewed the pathology with the patient. This demonstrated no evidence of disease in the left breast. In the right breast there was a 5 mm invasive ductal carcinoma all margins were negative for malignancy. There was no evidence of disease in the lymph nodes. I have instructed the patient on the care of her wounds. The patient will follow up with her medical oncologist she will follow up with us in 6 months. She knows to call with questions. Kianna Bunch MD PhD shrink pit supervisor M APPROVER documented in this encounter Plan of Treatment Not on file documented as of this encounter Visit Diagnoses Diagnosis Malignant 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, estrogen receptor negative (HCC)- Primary documented in this encounter Discontinued Medications Medication Sig Discontinue Reason Start Date End Da te lidocaine (LIDODERM) 5 % Place 2 patches on the skin daily Remove & discard patch within 12 hours or as directed by . 05/23/2022 06/04/2022 naloxone (NARCAN) 4 mg/actuation spray,non-aerosol Administer 1 spray into affected nostril(s) as needed for opioid reversal or respiratory depression Call 911. Administer a single spray in one nostril. Repeat every 3 minutes as needed if no or minimal response. 05/29/2022 06/04/2022 documented as of this encounter Historical Medications * This list may reflect changes made after this encounter. acetaminophen (TYLENOL) 500 mg tablet Take 1 tablet (500 mg total) by mouth as needed 05/23/2022 added in this encounter Care Teams Structural Steel Erection Supervisor Relationship Specialty Start Date End Date Dat Benito DO [address] [place] [address] PCP - General Internal Medicine 09/28/21 Aft, Kianna Machado MD PhD [address] [place] [address] Surgeon Surgical Oncology 11/22/17 Santiago Gilbert MD [address] [place] [address] Store Operations Associate Gastroenterology 11/22/17 Abbi Ventura MD [address] [place], [place] [id number] Medical Oncologist/Enamel Machine Operator Medical Oncology 12/03/18 Montse Thompson MD [address] [place] [address] Consulting Physician Gynecologic Oncology 12/03/18 Lela Hardy MD PhD [address] [facility] [facility] [address] [place] [address] Radiation Oncologist Radiation Oncology 12/23/18 Trena Obando MD [address] [place] [address] Consulting Physician Neurology 09/18/21 documented as of this encounter
--- OUTSIDE RECORDS SUMMARY | 2024-04-24 13:37 | XMS_ITS | Encounter Summary ---
Author Organization [facility] Address [address] [place] [address] Phone Care Team Providers Care Senior Safety Support Manager Name Role Phone Aft, Kianna Machado MD PhD Unavailable [phone] Santiago Gilbert MD Unavailable [phone] mDitry Sanderson MD Unavailable [phone] Abbi Ventura MD Unavailable Montse Thompson MD Unavailable [phone] Lela Hardy MD PhD Unavailable [phone] Trena Obando MD Unavailable [phone] Dat Benito DO Primary Care Provider [phone] Encounter Details Date Type Department Care Team (Late st Contact Info) Description 04/26/2022 3:30 PM CUSTOM MILLER Telemedicine [facility] Oncology [address] [place] [address] Abbi Ventura MD [address] [place] [address] Malignant neoplasm of right breast in female, estrogen receptor negative, unspecified site of breast (HCC) (Primary Dx); Malignant neoplasm of upper-inner [...] often do you have a drink containing alc ohol? Never 09/21/2021 Average Number of Drinks Not on file 022 Frequency of Binge Drinking Not on file 09/03 Comments No Sex and Gender Information Value Date Recorded Sex Assigned at Not on file 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 CUSTOM MILLER Gender Identity Not on file Sexual Orientation Not on file documented as of this encounter Progress Notes * Abbi Ventura MD - 04/26/2022 3:30 PM CST Medical Oncology Telehealth Visit This was a telemedicine visit with Aleah Gerber alone which took place via Telephone Inability orlack of knowledge to set up audio/visual visit. During the visit, I was located at [facility] and the patient was located at home. The session started at 2:55 pm and ended at 3:10 pm. The patient has been informed that the visit may not be secure and acknowledged the information. I have explained the option of participating in a telephone or video visit during the [facility] emergency to the patient. After being given an opportunity to ask questions about and discuss this type of visit, the patient verbally consented to proceeding with the telephone / video visit. The patient understands that this service replaces an office visit and they may be billed and/or responsible for any applicable copayments. Patient Identifying Data: Aleah Gerber is a 66 y.o. female seen in followup today DIAGNOSIS: 1. 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 Myriad My risk showed no mutation in MLH 1 or PMS2 suggesting that the patient does not have Grullon syndrome. 4. Allergic reaction to oxaliplatin during cycle 6 of FOLFOX 5. DYPD genotype normal. 6. DVT/PE diagnosed 05/28/18 TREATMENT HISTORY: COLON CANCER In March 2017 [...] ~ 1.4 cm, Grade 3, ER 0, VT 0, HER-2 IHC 0. Partial mastectomy and [...] residual disease. Adjuvant radiation therapy completed 02/04/2019. Interval History Screening breast MRI done on 03/23/22 showed 1 cm abnormality right breast. Biopsy of right breast lesion on 04/13/22 showed invasive ductal carcinoma. We arranged for office visit today to discuss further treatment of right breast cancer but patient could not come into clinic today. She is understandably anxious about new diagnosis of right breast cancer. Continues to have mild body pain in different areas but better than before. Peripheral neuropathy is stable. Review of Systems Review of systems positive for symptoms as per interval history. All other review of systems negative. Lab/Radiology/Diagnostic Review: Hematology Lab History Some values may be hidden. Unless noted otherwise, only the newest values recorded on each date aredisplayed. Labs - Hematology Latest Ref Range 09/21/21 02/01/22 WBC 3.8 - 9.9 K/cumm 7.3 7.3 Total Hb, POC 11.9 - 15.5 g/dL 12.0 12.3 Hct 35.6 - 45.5 % 37.4 38.3 Plt 150 - 400 K/cumm 200 180 Neutrophil abs 1.7 - 6.5 K/cumm 5.2 4.7 Lymphocytes, abs 0.8 - 3.3 K/cumm 1.2 1.8 Comments are available for some flowsheets but are not being displayed. Lab Results Component Value Date SODIUM 139 02/01/2022 POTASSIUM 4.2 02/01/2022 CO2 25 02/01/2022 BUNSER 21 02/01/2022 GLUCOSE 192 02/01/2022 CREATININE 1.25 (H) 02/01/2022 CALCIUM 9.6 02/01/2022 CHLORIDE 105 02/01/2022 ALBUMIN 4.1 02/01/2022 AST 18 02/01/2022 ALT 12 02/01/2022 ALKPHOS 108 02/01/2022 BILITOT 0.3 02/01/2022 PROT 7.1 02/01/2022 ANIONGAP 9 02/01/2022 Tumor Marker History Some values may be hidden. Unless noted otherwise, only the newest values recorded on each date aredisplayed. Tumor Markers Latest Ref Range 09/21/21 02/01/22 CEA <=5.0 ng/mL 1.8 2.1 CA 125 ag 0.0 - 38.0 units/mL 9.7 9.6 Comments are available for some flowsheets but are not being displayed. 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 Additionally due to the small size of the invasive component, accurate grading cannot be provided. Please refer to pathology report for details. Pathology is malignant and concordant. Surgical management is recommended. Results and recommendations were discussed with the patient by Uriel Corral RN for Dr. Abbi Ventura on 04/17/2022. She is scheduled to see Dr. Abbi Ventura on 04/26/2022. Electronically signed by: Nina Lawrence M.D. ADDENDUM: Pathology from biopsy of the right breast showed invasive ductal carcinoma and ductal carcinoma in situ; please refer to pathology report for details. Pathology is malignant and concordant. Surgical management is recommended. Results and recommendations were discussed with the patient by Uriel Corral RN for Dr. Abbi Ventura on 04/17/2022. She is scheduled to see Dr. Abbi Ventura on 04/26/2022. Electronically signed by: Nina Lawrence M.D. Narrative: EXAMINATION: RIGHT BREAST VACUUM-ASSISTED CORE BIOPSY UTILIZING MRI GUIDANCE, ONE LESION/SITE; PLACEMENT OF A BIOPSY TISSUE MARKER CLIP; AND RIGHT UNILATERAL FULL FIELD DIGITAL POST-PROCEDURE MAMMOGRAM WITH TOMOSYNTHESIS HISTORY: Abnormal breast MRI. 66-year-old female with personal history of LEFT breast cancer treated with breast conservation therapy. The patient is reportedly a BRCA2 gene mutation carrier. On screening breast MRI, there is a new area of clumped non-mass enhancement in the RIGHT upper outer breast spanning 1.0, which was considered of moderate suspicion for malignancy. MR guided core needle biopsy is requested to evaluate for malignancy. COMPARISON: Breast MRI dated 03/23/2022. Contrast: Gadoterate meglumine, 20 ml PROCEDURE AND FINDINGS: The risks, potential benefits, and reasonable alternatives of the procedure were discussed with the patient. Her questions were answered, and written informed consent was obtained. The patient was placed in the prone position on the MRI table. After sterile preparation of the skin, the breast was placed in a compression grid. Magnetic resonance imaging was performed with a dedicated breast imaging coil before and after intravenous administration of gadolinium, from which subtracted images were obtained. One percent (1%) lidocaine was utilized for local anesthesia at the skin puncture site, and 2% lidocaine with epinephrine was utilized for deeper local anesthesia and hemostasis about the biopsy site. A small skin incision was made with a #11 scalpel blade. A 9 gauge Suros introducer needle and sheath were then advanced through the skin incision to the target lesion from a lateral approach utilizing MR guidance. Additional magnetic resonance images were obtained to confirm appropriate sheath positioning. Subsequently, a 9 gauge Suros vacuum assisted biopsy needle was advanced through the sheath and a total of 18 tissue cores were obtained. Post biopsy magnetic resonance images confirm biopsy site changes in the expected position. A TriMark cork-shaped tissue marker clip was then placed at the biopsy site. The sheath was removed and hemostasis was achieved. Dermabond and an ice pack were applied. There was no evidence of significant immediate complication. The patient was given verbal as well as written post procedural instructions prior to release from the department. The tissue cores were submitted in formalin to surgical pathology for histologic analysis. A RIGHT unilateral two-view full field digital mammogram with digital breast tomosynthesis was obtained post procedure and this demonstrates that the tissue marker clip is in the expected position. The attending radiologist, Dr. Nina Lawrence M.D., was present throughout the entire procedure. Dr. Rhoda Penn (radiology fellow) was present and participated in the procedure. Dr. Dale Davis (vice president talent management) was present and participated in the procedure. Impression: Successful MRI-guided vacuum-assisted core needle biopsy of a 1.0 cm area of non-mass enhancement in the RIGHT upper outer breast, marked with the cork clip in expected position. Pathology is pending. ASSESSMENT: Post Procedure Mammograms for Marker Placement Dictated by: Rhoda Penn MD The radiology attending physician has personally reviewed this study, and had reviewed and/or edited this written report and agrees with it. Electronically signed by: Nina Lawrence M.D. 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 Additionally due to the small size of the invasive component, accurate grading cannot be provided. Please refer to pathology report for details. Pathology is malignant and concordant. Surgical management is recommended. Results and recommendations were discussed with the patient by Uriel Corral RN for Dr. Abbi Ventura on 04/17/2022. She is scheduled to see Dr. Abbi Ventura on 04/26/2022. Electronically signed by: Nina Lawrence M.D. ADDENDUM: Pathology from biopsy of the right breast showed invasive ductal carcinoma and ductal carcinoma in situ; please refer to pathology report for details. Pathology is malignant and concordant. Surgical management is recommended. Results and recommendations were discussed with the patient by Uriel Corral RN for Dr. Abbi Ventura on 04/17/2022. She is scheduled to see Dr. Abbi Ventura on 04/26/2022. Electronically signed by: Nina Lawrence M.D. Narrative: EXAMINATION: RIGHT BREAST VACUUM-ASSISTED CORE BIOPSY UTILIZING MRI GUIDANCE, ONE LESION/SITE; PLACEMENT OF A BIOPSY TISSUE MARKER CLIP; AND RIGHT UNILATERAL FULL FIELD DIGITAL POST-PROCEDURE MAMMOGRAM WITH TOMOSYNTHESIS HISTORY: Abnormal breast MRI. 66-year-old female with personal history of LEFT breast cancer treated with breast conservation therapy. The patient is reportedly a BRCA2 gene mutation carrier. On screening breast MRI, there is a new area of clumped non-mass enhancement in the RIGHT upper outer breast spanning 1.0, which was considered of moderate suspicion for malignancy. MR guided core needle biopsy is requested to evaluate for malignancy. COMPARISON: Breast MRI dated 03/23/2022. Contrast: Gadoterate meglumine, 20 ml PROCEDURE AND FINDINGS: The risks, potential benefits, and reasonable alternatives of the procedure were discussed with the patient. Her questions were answered, and written informed consent was obtained. The patient was placed in the prone position on the MRI table. After sterile preparation of the skin, the breast was placed in a compression grid. Magnetic resonance imaging was performed with a dedicated breast imaging coil before and after intravenous administration of gadolinium, from which subtracted images were obtained. One percent (1%) lidocaine was utilized for local anesthesia at the skin puncture site, and 2% lidocaine with epinephrine was utilized for deeper local anesthesia and hemostasis about the biopsy site. A small skin incision was made with a #11 scalpel blade. A 9 gauge Suros introducer needle and sheath were then advanced through the skin incision to the target lesion from a lateral approach utilizing MR guidance. Additional magnetic resonance images were obtained to confirm appropriate sheath positioning. Subsequently, a 9 gauge Suros vacuum assisted biopsy needle was advanced through the sheath and a total of 18 tissue cores were obtained. Post biopsy magnetic resonance images confirm biopsy site changes in the expected position. A TriMark cork-shaped tissue marker clip was then placed at the biopsy site. The sheath was removed and hemostasis was achieved. Dermabond and an ice pack were applied. There was no evidence of significant immediate complication. The patient was given verbal as well as written post procedural instructions prior to release from the department. The tissue cores were submitted in formalin to surgical pathology for histologic analysis. A RIGHT unilateral two-view full field digital mammogram with digital breast tomosynthesis was obtained post procedure and this demonstrates that the tissue marker clip is in the expected position. The attending radiologist, Dr. Nina Lawrence M.D., was present throughout the entire procedure. Dr. Rhoda Penn (radiology fellow) was present and participated in the procedure. Dr. Dale Davis (vice president talent management) was present and participated in the procedure. Impression: Successful MRI-guided vacuum-assisted core needle biopsy of a 1.0 cm area of non-mass enhancement in the RIGHT upper outer breast, marked with the cork clip in expected position. Pathology is pending. ASSESSMENT: Post Procedure Mammograms for Marker Placement Dictated by: Rhoda Penn MD The radiology attending physician has personally reviewed this study, and had reviewed and/or edited this written report and agrees with it. Electronically signed by: Nina Lawrence M.D. [facility] #: [id number] Taken:04/13/2022 Received:04/13/2022 Reported: 04/16/2022 Patient Type: [facility] Ancillary Service: UNKNOWN Location: Physician(s): MD Abbi Tadeo M.D. 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 Larisa Rdz M.D. Report Electronically Reviewed and Signed Out By Larisa Rdz M.D. 04/16/2022 14:54:29 Microscopic Description and Comment: Microscopic examination substantiates the above cited diagnosis. Small foci of invasive ductal carcinoma are present in multiple cores and whether these represent one focus or multiple foci cannot bedetermined. Due to the small size of the invasive component, accurate grading can not be provided. Melanie Rodriguez M.D. MRI Breast Bilateral W WO Contrast Status: Final result Study Result Narrative & Impression EXAMINATION: 1. MRI EXAMINATION OF THE BREASTS WITH AND WITHOUT CONTRAST 2. 3D POST PROCESSING ON A DEDICATED 3D WORKSTATION HISTORY: 66-year-old female with history of left breast carcinoma treated with breast conservation therapy in 2018. BRCA2 positive. DATE OF LAST MENSTRUAL PERIOD: Postmenopausal] TECHNIQUE: MRI examination of the breasts per breast tumor protocol with and without gadolinium contrast. A dedicated breast imaging coil was used. The images were transferred to a breast CAD system for 3D post processing and contrast kinetics analysis. CONTRAST: Gadoterate meglumine, 20 ml COMPARISON: Breast MRI dated 05/15/2021. BREAST COMPOSITION: Heterogeneous fibroglandular tissue BACKGROUND PARENCHYMAL ENHANCEMENT: Mild FINDINGS: Left breast conservation therapy changes. There are no suspicious masses, areas of architectural distortion or malignant appearing calcifications identified in the LEFT breast. There is new clumped non mass enhancement in the upper outer RIGHT breast with progressive kinetics of enhancement (H 20.8, Sectra instance 118/208) . The extent is approximately 0.6 x 1.0 cm . No abnormally enlarged lymph nodes are identified in the visualized portions of either axilla. IMPRESSION: 1. New 1.0 cm non-mass enhancement in the upper outer RIGHT breast is moderately suspicious for malignancy. 2. Stable posttreatment changes of LEFT breast conservation therapy. The method of initial detection of finding was screening MRI (Smri). OVERALL FINAL ASSESSMENT: SUSPICIOUS. BI-RADS Category 4B: Moderate suspicion for malignancy. RECOMMENDATION: MRI-guided biopsy of non-mass enhancement in the upper outer RIGHT breast. Dr. Damico (breast radiology fellow) was present and participated in interpretation. Dictated by: Selina Vergara M.D. The radiology attending physician has personally reviewed this study, and had reviewed and/or edited this written report and agrees with it. Electronically signed by: Yoana Ash M.D. Recent labs, radiology and pathology reviewed in [facility] ASSESSMENT: Right breast invasive ductal carcinoma - ER negative VT negative Her 2 negative - I could not perform physical exam today due to Telehealth visit but by MRI she has a clinical stage I breast cancer. I am recommending that she undergo surgery upfront and we will decide on adjuvant chemotherapy basedon the size of invasive component after surgery. If the invasive component is less than 5 mm we will hold off chemotherapy. If invasive tumor is between 5 mm and 1 cm, I would order Mammaprint beforedeciding on chemotherapy. If invasive component is larger than 1 cm, I would recommend chemotherapy. She continues to have residual neuropathy and TC would be difficult. She already got AC in the past and there is a life time maximum on adriamycin as higher doses can increase risk of heart failure.If she were to have chemotherapy, I would offer adjuvant CMF chemotherapy. T4bN0 disease, Stage IIC colon adenocarcinoma- no evidence of cancer recurrence T2N0, Stage IIA triple negative left breast cancer - no evidence of cancer recurrence MyRisk panel is positive for BRCA2 mutation, and VUS in BRIP1 and NBN: Status post bilateral oophorectomy. Patient is now agreeable with bilateral mastectomy and will d/w Dr. Bunch. 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 Ground glass opacity on CT chest - likely inflammation. Observe as she is asymptomatic Pain different areas - followed by PCP as scans have been negative for metastatic disease PLAN: F/u Dr. Bunch to plan surgery - I have discussed with Dr. Julio C MURRAY to see me 2 weeks post surgery Aleah Gerber will follow up as directed above, she was encouraged to call in the interim with questions or concerns. We will continue to monitor and review for side effects from treatment. Abbi Ventura MD head cashier Division of Oncology Section of Medical Oncology [facility] completed by using M*Modal Fluency Direct speaking software, therefore, transcriptionvariances may occur. OM MILLER OM MILLER documented in this encounter Plan of Treatment Not on file documented as of this encounter Visit Diagnoses Diagnosis Malignant neoplasm of right breast in female, estrogen receptor negative, unspecified site of breast (HCC)- Primary Malignant 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, estrogen receptor negative (HCC) documented in this encounter Orders Appointment Requests Count Last Ordered Date Fi rst Ordered Date [facility]N CLINIC APPOINTMENT REQUEST 1 022 documented in this encounter Care Teams Senior Safety Support Manager Relationship Specialty Start Date End Date Dat Benito DO [address] [place] [address] PCP - General Internal Medicine 09/28/21 Aft, Kianna Machado MD PhD [address] [place] [address] Surgeon Surgical Oncology 11/22/17 Santiago Gilbert MD [address] [place] [address] Circulation Analyst Gastroenterology 11/22/17 Dmitry Sanderson MD [address] [place] [address] Referring Physician Colon and Rectal Surgery 12/03/1805/06 Abbi Ventura MD [address] [place] [address] [address] [place] [address] Medical Oncologist/Remote Pilot Operator Medical Oncology 12/03/18 Montse Thompson MD [address] [place] [address] [address] [place] [address] Consulting Physician Gynecologic Oncology 12/03/18 Lela Hardy MD PhD [address] [place] [address] Radiation Oncologist Radiation Oncology 12/23/18 Trena Obando MD [address] [place] [address] Consulting Physician Neurology 09/18/21 documented as of this encounter
--- OUTSIDE RECORDS SUMMARY | 2024-04-24 13:37 | XMS_ITS | Encounter Summary ---
Author Organization [facility] Address [address] [place] [address] Phone Care Team Providers Care Manager Of Financial Name Role Phone Aft, Kianna Machado MD PhD Unavailable Santiago Gilbert MD Unavailable [phone] Abbi Ventura MD Unavailable Montse Thompson MD Unavailable [phone] Lela Hardy MD PhD Unavailable [phone] Trena Obando MD Unavailable [phone] Dat Benito DO Primary Care Provider [phone] Encounter Details Date Type Department Care Team (Late st Contact Info) Description 06/29/[address] [id number] Uriel Corral Social History Tobacco Use Types [...] on file 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 She will return in 3 weeks on 07/04/22, follow up to make sure that Mammoprint results are back. TB 06/13/22: Mammoprint faxed to [facility] TB 06/25/22: Received phone call from Gian Hernandez with [facility] in regards to patient's Mammoprint. Resulted in Q&S from surgical specimen. Gian states that they will attempt to run the Mammoprint from the biopsy site at this time. Uriel Corral RN 06/29/22: This RN called Gian Hernandez with [facility] at [phone]. They are still waiting on the specimen. He plans to call path lab to see where the specimen is at. If they are able to accession specimen today, we may have results as early as Saturday07/03/22. TheraA. Ellis RN USE PLANNER USE PLANNER documented in this encounter Plan of Treatment Not on file documented as of this encounter Visit Diagnoses Not on filedocumented in this encounter Care Teams Manager Of Financial Relationship Specialty Start Date End Date Dat Benito DO [address] [place], [place] [id number] PCP - General Internal Medicine 09/28/21 Aft, Kianna Machado MD PhD [address] [place] [address] Surgeon Surgical Oncology 11/22/17 Santiago Gilbert MD [address] [place] [address] Dielectric Tester Gastroenterology 11/22/17 Abbi Ventura MD [address] [facility] [address] [place] [address] Medical Oncologist/Stain Sprayer Medical Oncology 12/03/18 Montse Thompson MD [address] [facility] [address] [place] [address] Consulting Physician Gynecologic Oncology 12/03/18 Lela Hardy MD PhD [address] [place] [address] [address] [place] [address] Radiation Oncologist Radiation Oncology 12/23/18 Trena Obando MD [address] [place], [place] [id number] Consulting Physician Neurology 09/18/21 documented as of this encounter
--- OUTSIDE RECORDS SUMMARY | 2024-04-24 13:37 | XMS_ITS | Encounter Summary ---
Author Organization [facility] Address [address] [place] [address] Phone Care Team Providers Care Slunk Skinner Name Role Phone Aft, Kianna Machado MD PhD Unavailable [phone] Santiago Gilbert MD Unavailable [phone] Abbi Ventura MD Unavailable Montse Thompson MD Unavailable [phone] Lela Hardy MD PhD Unavailable Trena Obando MD Unavailable [phone] Dat Benito DO Primary Care Provider [phone] Encounter Details Date Type Department Care Team (Late st Contact Info) Description 07/04/2022 12:00 PM HEALTHCARE MARKET CONSULTANT Lab [facility] Oncology [address] [place] [address] Malignant neoplasm of upper-inner quadrant of left [...] on file 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 HEALTHCARE MARKET CONSULTANT Gender Identity Not on file Sexual Orientation Not on file documented as of this encounter Plan of Treatment Not on file documented as of this encounter Visit Diagnoses Diagnosis Malignant 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, estrogen receptor negative (HCC) documented in this encounter Orders Appointment Requests Count Last Ordered Date Fi rst Ordered Date ONCBCN LAB APPOINTMENT 1 07/04/2022 documented in this encounter Care Teams Slunk Skinner Relationship Specialty Start Date End Date Dat Benito DO [address] [place] [address] PCP - General Internal Medicine 09/28/21 Aft, Kianna Machado MD PhD [address] [place] [address] Surgeon Surgical Oncology 11/22/17 Santiago Gilbert MD [address] [place] [address] Computer Support Analyst Gastroenterology 11/22/17 Abbi Ventura MD [address] [place] [address] Medical Oncologist/Remelt Sugar Boiler Medical Oncology 12/03/18 Montse Thompson MD [address] [place] [address] Consulting Physician Gynecologic Oncology 12/03/18 Lela Hardy MD PhD [address] [place] [address] Radiation Oncologist Radiation Oncology 12/23/18 Trena Obando MD [address] [place] [address] Consulting Physician Neurology 09/18/21 documented as of this encounter
--- OUTSIDE RECORDS SUMMARY | 2024-04-24 13:37 | XMS_ITS | Encounter Summary ---
Author Organization [facility] Address [address] [place] [address] Care Team Providers Care Sign Shop Supervisor Name Role Phone Aft, Kianna Machado MD PhD Unavailable [phone] Santiago Gilbert MD Unavailable Abbi Ventura MD Unavailable Montse Thompson MD Unavailable [phone] Lela Hardy MD PhD Unavailable [phone] Trena Obando MD Unavailable [phone] Dat Benito DO Primary Care Provider [phone] Reason for Visit * Auth/Cert Specialty Diagnoses / Procedures Referred By Contac t Referred To Contact Diagnoses Malignant 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, 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, 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) (HCC) [C50.212, Z17.1] Procedures IL BX/EXC LYMPH NODE OPEN SUPERFICIAL IL MASTECTOMY SIMPLE COMPLETE IL INTRAOP SENTINEL LYMPH NODE ID W/DYE INJECTION MASTECTOMY BILATERAL BIOPSY SENTINEL LYMPH NODE with magtrace Referral ID Status Reason Start Date Expiration Date Visits Re quested Visits Authorized [id number] 1 1 Encounter Details Date Type Department Care Team (Latest Contact Info) Description 05/22/2022 5:39 AM ACCOUNTS PAYABLE PROCESSOR - 05/23/2022 12:30 PM ACCOUNTS PAYABLE PROCESSOR Hospital Encounter [facility] [address] [place] [address] Kianna Bunch MD PhD [address] [place] [address] Malignant 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, 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) (HCC) Discharge Disposition: Discharge to home [...] on file 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 ACCOUNTS PAYABLE PROCESSOR Gender Identity Not on file Sexual Orientation Not on file documented as of this encounter Last Filed Vital Signs Vital Sign Reading Time Taken Comments Blood Pressure 112/50 05/23/2022 11:15 AM ACCOUNTS PAYABLE PROCESSOR Pulse 88 05/23/2022 11:15 AM ACCOUNTS PAYABLE PROCESSOR Temperature 36.8 ??C (98.2 ??F) 05/23/2022 11:[address] Respiratory Rate 14 05/23/2022 11:15 AM ACCOUNTS PAYABLE PROCESSOR Oxygen Saturation 98% 05/23/2022 11:15 AM ACCOUNTS PAYABLE PROCESSOR Inhaled Oxygen Concentration - - Weight 108.9 kg (240 lb) 05/22/2022 1:13 PM ACCOUNTS PAYABLE PROCESSOR Height 175.3 cm (5' 9 ) 05/22/2022 1:13 PM ACCOUNTS PAYABLE PROCESSOR Body Mass Index 35.44 05/22/2022 1:13 PM ACCOUNTS PAYABLE PROCESSOR documented in this encounter Discharge Summaries * Chely Turner, REGULATORY COMPLIANCE OFFICER - 05/23/2022 10:00 AM CST Inpatient Discharge Summary BRIEF OVERVIEW Admitting Provider: Kianna Bunch MD PhD Discharge Provider: No att. providers found Primary Care Physician at Discharge: ValariejianDat hankins DO [phone] Admission Date: 05/22/2022 Discharge Date: 05/23/2022 Primary Discharge Diagnosis: Breast cacner Secondary Discharge Diagnosis: Principal Problem: Malignant 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, 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) (HCC) Resolved Problems: No resolved hospital problems. DETAILS OF HOSPITAL STAY Presenting Problem/History of Present Illness: Malignant 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, 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) (HCC) Aleah Gerber is a 66 y.o. woman who was found to have a Pre-op Diagnosis * Malignant 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, 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) (HCC) [C50.212, Z17.1]. She has elected to proceed with bilateral mastectomies with sentinel lymph node biopsy for axillary staging. Hospital Course: Aleah Gerber was admitted on May 22, 2022 and taken to the operating room for a bilateral simple mastectomy, right sentinel lymph node biopsy by Aft, Kianna Machado MD PhD. For full operative details, please dictated summary. The patient tolerated the procedure well and post operatively was admitted to the Oncologic surgery Service for overnight observation. Her diet was advanced and her pain was controlled on IV and oral medication. An occupational therapy consult was requested, and the patient received LADONNA drain teaching on postoperative day 1. She was then discharge home in stable condition, tolerating a regular diet, voiding spontaneously, ambulating well and with her pain controlled on oral pain medication. Active Issues Requiring Follow-up: Surgical pathology LADONNA drain removal Test Results Pending at Discharge: Pending Labs Order Current Status Surgical pathology In process Operative Procedures Performed: Procedure(s): MASTECTOMY BILATERAL BIOPSY SENTINEL LYMPH NODE with magtrace Discharge Details Physical Exam at Discharge: Discharge Condition: good Pulse: 88 Resp: 14 BP: 112/50 Temp: 36.8 ??C (98.2 ??F) Weight: 108.9 kg (240 lb) Pertinent Exam Findings at Discharge: Gen: A&Ox3, NAD, conversant CV: Regular rate and rhythm Pulm: Nonlabored breathing Abd: Soft, nontender, nondistended Ext: Moves all four extremities, warm and well perfused Skin: bilateral mastectomy incisions c/d/I with Dermabond, bilateral LADONNA drains serosanguinous drainage Discharge Disposition: Discharge to home or self care Code Status at Discharge: full Discharge Instructions: Activity Instructions Discharge Activity: Driving restrictions -Do not drive while taking pain medications. Discharge Activity: Lifting restrictions -Do NOT lift greater than 10 pounds for 2 weeks. Discharge Activity: Stairs -You may climb stairs as tolerated. Discharge Activity: Walking -You may walk as tolerated. Diet Instructions Adult Discharge Diet Diet Type: Return to previous diet Other Instructions Call provider for: Call the doctor's officer at for questions or concerns. The office is open Saturday-Saturday from 8:00 AM - 4:00 PM. If you need to talk with a doctor after hours or on a weekend or holiday, call and ask for your surgeon by name for the Oncology Surgery Service. . Call provider for: increased temperature -Temperature greater than 101 degrees F Call provider for: nausea, vomiting, diarrhea -If you have persistent nausea, vomiting or diarrhea that does not stop Call provider for: redness, tenderness, or signs of infection (pain, swelling, redness, odor or green/yellow discharge around incision site) Call provider for: severe uncontrolled pain Call provider if: you feel dizzy, very tired or like you may faint Care Instructions: Drain care -Cover your drain with a plastic dressing while showering -Do not remove biopatch around your drain at the exit site. This helps keep the site clean. -(If present) Leave clear plastic dressing in place until curls up and is falling off. -Cleanse exit site of drain daily with soap and water. Reapply dry dressing if no plastic dressing. -Empty and record drain amount twice daily -(If present) Leave clear plastic dressing in place until curls up and is falling off. Care Instructions: Ice packs -Apply ice packs as needed for pain and swelling. Care Instructions: Incentive Spirometer - Continue to use your incentive spirometer Care Instructions: Incisions -Keep incisions clean and dry Care Instructions: No tub baths -No tub baths, whirlpools or swimming until your doctor says it's ok. Care Instructions: Shower -You may shower 2 days after your surgery. Care Instructions: Surgical Bra -Wear the surgical bra day/night for 2 week(s). May remove to shower. May remove to wash the binder. Discharge Medications: Your medication list START taking these medications acetaminophen 500 mg capsule Take 2 capsules (1,000 mg total) by mouth every 6 (six) hours for 5 days docusate sodium 100 mg capsule Take 1 capsule (100 mg total) by mouth 2 (two) times a day Commonly known as: COLACE doxycycline monohydrate 100 mg capsule Take 1 capsule (100 mg total) by mouth 2 (two) times a day for 14 days Commonly known as: MONODOX oxyCODONE 5 mg immediate release tablet Take 1 tablet (5 mg total) by mouth every 4 (four) hours as needed for pain Commonly known as: ROXICODONE CHANGE how you take these medications albuterol HFA 90 mcg/actuation inhaler Inhale 2 puffs every 6 (six) hours as needed for wheezing Commonly known as: PROVENTIL HFA,VENTOLIN HFA,PROAIR HFA What changed: reasons to take this CONTINUE taking these medications ALPRAZolam 0.25 mg tablet Take 0.25 mg by mouth 3 (three) times a day as needed for anxiety Commonly known as: XANAX amLODIPine 5 mg tablet Take 5 mg by mouth every morning Commonly known as: NORVASC diphenhydrAMINE 25 mg capsule Take 25 mg by mouth every morning Commonly known as: BENADRYL DULoxetine DR 60 mg capsule Take 60 mg by mouth nightly Commonly known as: CYMBALTA fluticasone propion-salmeteroL 500-50 mcg/dose diskus inhaler Inhale 1 puff 2 (two) times a day Rinse mouth with water after use. Do not swallow. Commonly known as: ADVAIR DISKUS fluticasone propionate 50 mcg/actuation nasal spray Administer 1 spray into each nostril 2 (two) times a day Commonly known as: FLONASE levothyroxine 75 mcg tablet Take 75 mcg by mouth every morning Commonly known as: SYNTHROID nortriptyline 10 mg capsule Take 10 mg by mouth nightly Commonly known as: PAMELOR omeprazole 20 mg capsule Take 20 mg by mouth daily as needed Commonly known as: PriLOSEC ondansetron 4 mg tablet Take 4 mg by mouth every 8 (eight) hours as needed for vomiting or nausea Commonly known as: ZOFRAN propranolol LA 60 mg 24 hr capsule Take 60 mg by mouth 2 (two) times a day Commonly known as: INDERAL LA topiramate 25 mg tablet Take 25 mg by mouth 3 (three) times a day Commonly known as: TOPAMAX traMADoL 50 mg tablet Take 50 mg by mouth every 8 (eight) hours as needed for pain Commonly known as: ULTRAM Outpatient Follow-Up: Future Appointments Date Time Provider Department Center 06/04/2022 3:00 PM Kianna Bunch MD PhD ONC CAM 5F [facility] 06/05/2022 3:15 PM PFT 2 BW M[facility]2 PFT [facility] Pul[facility] 06/05/2022 4:00 PM Cristobal Dong MD PUL BW [facility] Pul[facility] 06/13/2022 12:30 PM Abbi Ventura MD ONC [facility] Oncology 08/16/2022 11:30 AM BJ SCCT1 BJ SC CT [facility] IMG 08/16/2022 1:00 PM LAB, SC ONC ONC LAB [facility] ONC LAB 08/16/2022 1:30 PM Abbi Ventura MD ONC [facility] Oncology 09/24/2022 2:00 PM Montse Thompson MD ONC CAM 13C OB Cosigned by Julio C, Kianna Machado MD PhD at 05/24/2022 7:07 AM ACCOUNTS PAYABLE PROCESSOR UNTS PAYABLE PROCESSOR UNTS PAYABLE PROCESSOR documented in this encounter Medications at Time [...] as needed for vomiting or nausea 02/22/2021 propranolol LA (INDERAL LA) 60 mg 24 hr capsuleIndication s:Essential Tremor Take 1 capsule (60 mg total) by mouth 2 (two) times a day 10/26/2019 topiramate (TOPAMAX) 25 mg tabletIndications :pain Take 1 tablet (25 mg total) by mouth 3 (three) times a day 09/12/2021 traMADoL (ULTRAM) 50 mg tablet Take 1 tablet (50 mg total) by mouth every 8 (eight) hours as needed for pain 01/11/2021 acetaminophen 500 mg capsuleIndication s:Pain Take 2 capsules (1,000 mg total) by mouth every 6 (six) hours for 5 days 40 tablet 05/23/2022 3 doxycycline (MONODOX) 100 mg capsuleIndication s:Prophylaxis, Medical Take 1 capsule (100 mg total) by mouth 2 (two) times a day for 14 days 28 capsule 05/23/2022 3 albuterol HFA (PROVENTIL HFA,VENTOLIN HFA,PROAIR HFA) 90 mcg/actuation inhaler Inhale 2 puffs every 6 (six) hours as needed for wheezing 1 each 5 03/22/2021 3 fluticasone propion-salmetero L (ADVAIR DISKUS) 500-50 mcg/dose diskus inhaler Inhale 1 puff 2 (two) times a day Rinse mouth with water after use. Do not swallow. 60 each 5 06/05/2021 3 lidocaine (LIDODERM) 5 % Place 2 patches on the skin daily Remove & discard patch within 12 hours or as directed by 60 patch 05/23/2022 3 oxyCODONE (ROXICODONE) 5 mg immediate release tabletIndications :Pain Take 1 tablet (5 mg total) by mouth every 4 (four) hours as needed for pain 8 tablet 05/23/2022 3 documented as of this encounter Ordered Prescriptions Prescription Sig Dispense Quantity Refills Last Filled Start Date End Date docusate sodium (COLACE) 100 mg capsuleIndications :constipation Take 1 capsule (100 mg total) by mouth 2 (two) times a day 30 capsule 05/23/2022 lidocaine (LIDODERM) 5 % Place 2 patches on the skin daily Remove & discard patch within 12 hours or as directed by . 60 patch 05/23/2022 3 doxycycline (MONODOX) 100 mg capsuleIndications :Prophylaxis, Medical Take 1 capsule (100 mg total) by mouth 2 (two) times a day for 14 days 28 capsule 05/23/2022 3 acetaminophen 500 mg capsuleIndications :Pain Take 2 capsules (1,000 mg total) by mouth every 6 (six) hours for 5 days 40 tablet 05/23/2022 3 oxyCODONE (ROXICODONE) 5 mg immediate release tabletIndications: Pain Take 1 tablet (5 mg total) by mouth every 4 (four) hours as needed for pain 8 tablet 05/23/2022 3 documented in this encounter Discharge Disposition Disposition Code Departure Means Destination Discharge to home or self care documented in this encounter Progress Notes * Sherry Mireles RN - 05/23/2022 10:32 AM CST 05/23/22 1032 Discharge Summary Discharge Disposition Private residence Equipment/Provider Needs No Home Needs Identified Discharge Additional Assistance Does the patient need discharge transport arranged? No Post Discharge Care Provider Post Discharge Care Plan DC Summary has been faxed to next level of care provider (see Follow Up Providers) Per medical team, patient is medically stable for discharge at this time. Follow up appointment hasbeen scheduled for 06/04. Patient and/or family are agreeable with the plan. If any further discharge needs arise, please contact the covering shoe caser. UNTS PAYABLE PROCESSOR * Sherry Mireles RN - 05/23/2022 10:29 AM CST CM Initial Assessment Interview Note Information Obtained From: Patient (05/23/22 102) Admission Source: from home Impression: 66 year old sp bilateral mastectomy Plan Includes: return home with 24 hour care per spouse and son, will review ladonna care prior to dc, no need for hh or dme Primary Source of Transportation: Does the patient need discharge transport arranged?: No (05/23/22 1028) Health Insurance Coverage: veriCAR Prescription Coverage: yes Pharmacy: [id number] [address] [facility] [id number] Primary Care Provider: Dat Benito DO Prior to Admission: Primary Caregiver: Self Support System: Children Support system contact info (name, phone, availablity): amanda Werner [phone] Home Care Services: No Durable Medical Equipment: None Living Arrangements: Spouse/significant other Type of Residence: Private residence Medication management: (independent) (05/22/22 1300) Potential discharge needs include:none Behavioral Health Services: Behavioral Health Services: No (05/23/22 1028) Patient expects to be Discharged to: Private residence, (05/23/22 1028) Additional Information: 66 year old independent adl, lived with spouse Patient's Identified Problem/Goal Problem: Ensure acute medical needs are met and that patient has a safe discharge plan. Goal: Secure a discharge plan that patient/family are agreeable with and ensure patient has continuum of care. Case management will follow for discharge planning and send referrals as needed. Goals include: To assure continuity of care, To maximize coping skills, To assure patient is in a safe environment and To assure access to community resources. Plan includes: 1. Collaboration with patient, MD, direct care nurse, Sales Merchandise Associate, and other members of the health care team to assure needed interventions completed. 2. Return patient to optimal level of self-care post discharge. 3. Orthotic Fitter will follow for Discharge Planning - interventions as needed 4. Anticipated level of care at discharge 5. Planned Discharge Disposition Based on a comprehensive family assessment, assistance with instrumental activities of daily livingafter discharge will be provided by spouse Through the course of our work I determined that the spousee possesses the skill and ability to provide and monitor the care of the patient when he or she returns home. spouse has the capacity to provide/monitor/arrange for the care of the patient. Finally, we determined that spouse has the knowledge of available resources and that combining them with their existing resources will suffice to sustain and care for the patient when he or she returns home. The treatment team is aware of this information. All are in agreement with the aftercare plan. Sherry Mireles RN UNTS PAYABLE PROCESSOR * Aracelis Murdock OT - 05/23/2022 8:35 AM CST Occupational Therapy Occupational Therapy Initial Assessment NOTE:This is a summary note for the huggins assessments completed during the evaluation session. For full details, review chart review for all flowsheets documented on by this Occupational Therapist on this date. Vital signs documented in vital signs flowsheet. Assessment Assessment Prognosis: Good Barriers to Discharge: None Plan Plan Plan: Discharge, If this is the last note, consider this the discharge summary OT Recommendation and Plan Recommendation/Plan OT Recommendation: Home with family, Home with 24 hour supervision, No further OT indicated OT Recommendation/Plan Comments: 26/11 assist for initial recovery for 5-7 days. After initial recovery, assist from family PRN. OT Frequency during current admission: One-time visit (Discharge from this service) Comments: Pt. seen for initial OT eval this date. Pt. educated on OT role and purpose of visit. Pt.verbalized understanding. Pt. educated on one-handed dressing techniques to assist with maintainingprecautions; pt. demonstrated understanding. Provided patient with breast health education folder. Educated patient on lymphedema prevention and symptoms. Took measurements of BUE at wrist, 10 cm below elbow, at elbow crease, and 10 cm above elbow. Recorded measurements for patient to keep in records. Patient also educated on local support groups and mastectomy bra providers. Finally, patient educated on surgical precautions and HEP. Patient then completed x5 reps of each exercise with no complaints of pain or discomfort. Patient reported no further questions or concerns for safe discharge home. No further concerns at this level of care at this time. Progress during current admission: Progressing toward goals OT - OK to Discharge: Yes OT Evaluation Complete: Yes General Information General Chart Reviewed: Yes Session Type: Evaluation (initial d/c) OT Received On: 05/23/22 Safe Environment: Arm Band Checked, Call Light within Reach, Notified RN, Patient found in Supine, Overbed Table within Reach, Bed in Lowest Position with Wheels locked, Bed rails up per protocol (Pt. left lying supine in bed, all needs met.) Subjective: Agreeable to Therapy Family/Caregiver Present: No Occupational Therapy-Patient Goal: Pt. stated, I want to go home. Precautions Precautions Precautions: Obstructive sleep apnea Precaution Comments: Educated pt. on the following breast health precautions prior to engaging in mobility this date: no shoulder abduction/flexion greater than 90 degrees; no excessive pushing/pulling, no excessive repetitive motions; no lifting greater than 8-10lbs. Pt. verbalized and demonstrated understanding during functional transfers, bed mobility, and ADLs. PPE worn by OT: surgical mask, gloves. Home Living Home Living Type of Home: House Home Layout: One level Home Access: Stairs to enter without rails Entrance Stairs-Rails: None Entrance Stairs-Number of Steps: 5 Bathroom Shower/Tub: Tub/shower unit Bathroom Toilet: Raised Bathroom Equipment: Hand-held shower, Other (Comment) (bidet) Home Mobility Equipment: None Additional Comments: Pt. reports no use of AD for mobility at baseline. 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 Fall within the last 6 months: No Activities of Daily Living Grooming Grooming: Where assessed: Standing at sink Grooming: Level of assistance: Independent UE Dressing UE Dressing: Where assessed: Sitting, Edge of bed UE Dressing: Level of assistance: Minimum Assist UE Dressing: Assistance with: Pull around back, Safety, Maintaining precautions, Sequencing LE Dressing LE Dressing: Where assessed: Sitting, Edge of bed LE Dressing: Level of assistance: Standby Assist (SBA task, IND balance) LE Dressing: Assistance with: Safety, Maintains precautions Toileting Toileting: Where assessed: Toilet Toileting: Level of assistance: Independent Toilet Transfers Toilet Transfer From: Bed Toilet Transfer Type: To and from Toilet Transfer to: Standard toilet Toilet Transfer Technique: Ambulating Toilet Transfer: Equipment: No device Toilet Transfers: Independent Pain Pain Assessment Pain Assessment: 0-10 Pain Score: 2 Pain Location: Breast Pain Orientation: Right, Left Pain Interventions: Repositioned Cognition Cognition Overall Cognitive Status: Within Functional Limits Arousal/Alertness: Alert, Appropriate responses to stimuli Attention Span: Appears intact Memory: Appears intact Current communication: Appears Intact Orientation : Oriented X4 (person, place, time, situation) Following Commands: Follows all commands and directions without difficulty Safety Judgment: Good awareness of safety precautions Awareness of Errors: Good awareness of errors made Insight: Fully aware of deficits Problem Solving: Able to problem solve independently Compliance/Behavior: Easy to engage Short Blessed Test What year is it now?: Correct What month is it now?: Correct Repeat this name and address after me: Gilberto Sanchez [address] [place] [address] Without looking at the clock, tell me what time it is: Correct-within one hour Count aloud backwards from 20-1: 0 Errors Say the months of the year backwards in reverse order: 1 Error Repeat the name and address I asked you to remember: 1 Error Short Blessed Total Score: 4 Short Blessed Comments: WNL 6 Clicks Daily Activity - 6 Clicks Putting on and taking off regular lower body clothing: A Little Bathing: A little Toileting: None Putting on and taking off upper body clothing: A Little Personal Grooming: None Eating Meals: None Total Score (range 6-24): 21 Score Interpretation: 21 Balance Static Sitting Balance Static Sitting-Balance Support: No upper extremity supported, Feet supported Static Sitting-Sitting Surface: Bed Static Sitting-Level of Assistance: Independent Dynamic Sitting Balance Dynamic Sitting-Balance Support: No upper extremity supported, Feet supported Dynamic Sitting-Balance: Lateral lean, Forward lean, Reaching for objects, Reaching across midline Dynamic Sitting-Sitting Surface: Bed Dynamic Sitting-Level of Assistance: Independent Dynamic Sitting-Comments: during LE dressing Static Standing Balance Static Standing-Balance Support: No upper extremity supported Static Standing-Standing Surface: Floor Static Standing-Level of Assistance: Independent Dynamic Standing Balance Dynamic Standing-Balance Support: No upper extremity supported Dynamic Standing-Balance: Lateral lean, Forward lean, Reaching for objects, Reaching across midline Dynamic Standing-Standing Surface: Floor Dynamic Standing-Level of Assistance: Independent Dynamic Standing-Comments: during standing grooming ADL Transfers Transfers Transfer: Yes Transfer 1 Transfer From 1: Sit Transfer Type 1: To and from Transfer to 1: Stand Technique 1: Sit to stand, Stand to sit Transfer Device 1: No device Transfer Level of Assistance 1: Independent Transfers 2 Trials/Comments 2: Pt. engaged in functional room mobility to and from the bathroom with IND using no device. Bed Mobility Bed Mobility Bed Mobility: Yes Bed Mobility 1 Bed Mobility From 1: Supine Bed Mobility Type 1: To and from Bed Mobility to 1: Edge of bed Level of Assistance 1: Modified Independent Bed Mobility Comments 1: HOB slightly elevated RUE Assessment RUE Assessment RUE Assessment: Within Functional Limits (AROM WFL w/in precautions, deferred MMT) LUE Assessment LUE Assessment LUE Assessment: Within Functional Limits (AROM WFL w/in precautions, deferred MMT) Other Comments Other Comments Comments: Pt. seen for initial OT eval this date. Pt. educated on OT role and purpose of visit. Pt.verbalized understanding. Pt. educated on one-handed dressing techniques to assist with maintainingprecautions; pt. demonstrated understanding. Provided patient with breast health education folder. Educated patient on lymphedema prevention and symptoms. Took measurements of BUE at wrist, 10 cm below elbow, at elbow crease, and 10 cm above elbow. Recorded measurements for patient to keep in records. Patient also educated on local support groups and mastectomy bra providers. Finally, patient educated on surgical precautions and HEP. Patient then completed x5 reps of each exercise with no complaints of pain or discomfort. Patient reported no further questions or concerns for safe discharge home. No further concerns at this level of care at this time. OT Goals Multi-Disciplinary Problems (from Occupational Therapy) Active Problems Problem: OT Misc Start Date: 05/23/22 Goal Start Date Expected End Date End Date OT LTG - [facility] [place] 1 05/23/22 06/20/22 -- Goal Details: Pt. Will perform all ADLs with IND using AE/adaptive device PRN. For questions, please review the treatment team and contact the occupational therapist currently assigned to this patient. If an occupational therapist is not assigned to this patient, please call [phone]. UNTS PAYABLE PROCESSOR * Cem Rae MD - 05/23/2022 6:38 AM CST General Surgery Daily Progress Subjective Chief complaint of breast cancer post op day- 0 from MASTECTOMY BILATERAL (B), BIOPSY SENTINEL LYMPH NODE with magtrace (R) Interval History: No acute events overnight. Pain well-controlled, anticipate discharge home today. Current Facility-Administered Medications: acetaminophen (TYLENOL) tablet 1,000 mg, 1,000 mg, oral, Q6H ARIC, Chely Turner, KAM, 1,000 mg at 05/23/22458 albuterol HFA (PROVENTIL HFA,VENTOLIN HFA,PROAIR HFA) 90 mcg/actuation inhaler 2 puff, 2 puff, inhalation, Q6H PRN (RT), Shady Ritchie MD amLODIPine (NORVASC) tablet 5 mg, 5 mg, oral, QAM, Shady Ritchie MD dextrose gel in packet 15 g, 15 g, oral, Q15 Min PRN OR dextrose (D10W) 10% bolus 250 mL, 250 mL, intravenous, Q15 Min PRN, Chely Turner NP doxycycline (VIBRAMYCIN) tablet/capsule 100 mg, 100 mg, oral, BID - special, Shady Ritchie MD, 100 mg at 05/23/[address] (CYMBALTA) extended release capsule 60 mg, 60 mg, oral, Nightly, Shady Ritchie MD, 60 mg at 05/22/222057 fluticasone furoate-vilanteroL (BREO ELLIPTA) 200-25 mcg/dose inhaler 1 puff, 1 puff, inhalation, Daily (RT), Chely Turner, KAM glucagon injection 1 mg, 1 mg, intramuscular, Q30 Min PRN, Chely Turner, REGULATORY COMPLIANCE OFFICER insulin lispro (HumaLOG, ADMELOG) 100 unit/mL injection 0-4 Units, 0-4 Units, subcutaneous, Nightly, Chely Turner, KAM, 2 Units at 05/22/222058 insulin lispro (HumaLOG, ADMELOG) 100 unit/mL injection 0-5 Units, 0-5 Units, subcutaneous, TID with meals, Chely Turner, KAM, 1 Units at 05/22/221743 levothyroxine (SYNTHROID) tablet 75 mcg, 75 mcg, oral, QAM, Shady Ritchie MD nortriptyline (PAMELOR) capsule 10 mg, 10 mg, oral, Nightly, Shady Ritchie MD, 10 mg at 05/22/222057 oxyCODONE (ROXICODONE) tablet 5 mg, 5 mg, oral, Q4H PRN, Shady Ritchie MD, 5 mg at 05/23/[address] (PROTONIX) extended release tablet 40 mg, 40 mg, oral, Daily, Shady Ritchie MD propranoloL (INDERAL) tablet 40 mg, 40 mg, oral, BID, Shady Ritchie MD, 40 mg at 05/23/22457 topiramate (TOPAMAX) tablet 25 mg, 25 mg, oral, TID, Shady Ritchie MD, 25 mg at 05/22/222057 Objective Physical Exam: Lungs: clear to auscultation bilaterally Heart: regular rate and rhythm, S1, S2 normal, no murmur, click, rub or gallop Abdomen: soft, non-tender; bowel sounds normal; no masses, no organomegaly Incision: bilateral mastectomy incisions c/d/I with Dermabond, bilateral LADONNA drains serosanguinous drainage Extremities: WWP, NAD Lab/Radiology/Diagnostic Review: Laboratory review: Lab results in the last 12 hours: Recent Results (from the past 12 hour(s)) POCT glucose Collection Time: 05/22/22 8:44 PM Result Value Ref Range Glucose, POC 256 (H) 70 - 199 mg/dL Vitals: 24hr Min/Max: Temp Min: 36.3 ??C (97.3 ??F) Max: 36.7 ??C (98.1 ??F) Pulse Min: 60 Max: 71 BP Min: 106/53 Max: 178/73 Resp Min: 10 Max: 18 SpO2 Min: 93 % Max: 100 % Most Recent : Vitals: 05/23/22 0458 BP: 121/50 Pulse: 64 Resp: 14 Temp: 36.7 ??C (98.1 ??F) SpO2: 99% I/O last 2 completed shifts: In: 1330 [P.O.:330; I.V.:1000] Out: 610 [Urine:385; Drains:125; Blood:100] I/O this shift: In: - Out: 1160 [Urine:1050; Drains:110] Assessment /Plan Principal Problem: Malignant 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, 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) (HCC) 66 y/o f s/p bilateral simple mastectomy, right sentinel lymph node biopsy in NAD. -Monitor VS, oxygenation, I&O, LADONNA output -Acute surgical pain: scheduled APAP, oxy IR PRN, cont home duloxetine, nortriptylline, topiramate -DM: SSI -HTN: cont home amlodipine -COPD: cont home inhalers -Hypothyroidism: cont home levothyroxine -Doxycycline PPX -DVT PPX: scd b/l, encourage ambulation, hold heparin subq for increased bleeding risk -Regular diet -Anticipate discharge home today Cosigned by Aft, Kianna Machado MD PhD at 05/23/2022 1:35 PM ACCOUNTS PAYABLE PROCESSOR UNTS PAYABLE PROCESSOR UNTS PAYABLE PROCESSOR * Chely Turner NP - 05/22/2022 2:23 PM CST General Surgery Daily Progress Subjective Chief complaint of breast cancer post op day- 0 from MASTECTOMY BILATERAL (B), BIOPSY SENTINEL LYMPH NODE with magtrace (R) Interval History: 66 y/o f s/p bilateral simple mastectomy, right sentinel lymph node biopsy. Pain controlled. Denies nausea, cp, sob. Current Facility-Administered Medications: acetaminophen (TYLENOL) tablet 1,000 mg, 1,000 mg, oral, Q6H ARIC, Chely Turner, KAM, 1,000 mg at 05/22/22 1319 albuterol HFA (PROVENTIL HFA,VENTOLIN HFA,PROAIR HFA) 90 mcg/actuation inhaler 2 puff, 2 puff, inhalation, Q6H PRN (RT), Shady Ritchie MD [START ON 05/23/2022] amLODIPine (NORVASC) tablet 5 mg, 5 mg, oral, QAM, Shady Ritchie MD dextrose gel in packet 15 g, 15 g, oral, Q15 Min PRN OR dextrose (D10W) 10% bolus 250 mL, 250 mL, intravenous, Q15 Min PRN, Chely Turner, KAM [START ON 05/23/2022] doxycycline (VIBRAMYCIN) tablet/capsule 100 mg, 100 mg, oral, BID - special, Shady Ritchie MD DULoxetine DR (CYMBALTA) extended release capsule 60 mg, 60 mg, oral, Nightly, Shady Ritchie MD fluticasone furoate-vilanteroL (BREO ELLIPTA) 200-25 mcg/dose inhaler 1 puff, 1 puff, inhalation, Daily (RT), Chely Turner NP glucagon injection 1 mg, 1 mg, intramuscular, Q30 Min PRN, Chely Turner, KAM insulin lispro (HumaLOG, ADMELOG) 100 unit/mL injection 0-4 Units, 0-4 Units, subcutaneous, Nightly, Chely Turner NP insulin lispro (HumaLOG, ADMELOG) 100 unit/mL injection 0-5 Units, 0-5 Units, subcutaneous, TID with meals, Chely Turner NP [START ON 05/23/2022] levothyroxine (SYNTHROID) tablet 75 mcg, 75 mcg, oral, QAM, Shady Ritchie MD nortriptyline (PAMELOR) capsule 10 mg, 10 mg, oral, Nightly, Shady Ritchie MD oxyCODONE (ROXICODONE) tablet 5 mg, 5 mg, oral, Q4H PRN, Shady Ritchie MD, 5 mg at 05/22/22 1319 [START ON 05/23/2022] pantoprazole DR (PROTONIX) extended release tablet 40 mg, 40 mg, oral, Daily, Shady Ritchie MD propranoloL (INDERAL) tablet 40 mg, 40 mg, oral, BID, Shady Ritchie MD topiramate (TOPAMAX) tablet 25 mg, 25 mg, oral, TID, Shady Ritchie MD Objective Physical Exam: Lungs: clear to auscultation bilaterally Heart: regular rate and rhythm, S1, S2 normal, no murmur, click, rub or gallop Abdomen: soft, non-tender; bowel sounds normal; no masses, no organomegaly Incision: bilateral mastectomy incisions c/d/I with Dermabond, bilateral LADONNA drains serosanguinous drainage Extremities: WWP, NAD Lab/Radiology/Diagnostic Review: Laboratory review: Lab results in the last 12 hours: Recent Results (from the past 12 hour(s)) POCT glucose Collection Time: 05/22/22 6:40 AM Result Value Ref Range Glucose, POC 141 70 - 199 mg/dL POCT glucose Collection Time: 05/22/22 11:07 AM Result Value Ref Range Glucose, POC 199 70 - 199 mg/dL Vitals: 24hr Min/Max: Temp Min: 36.1 ??C (97 ??F) Max: 36.3 ??C (97.3 ??F) Pulse Min: 60 Max: 71 BP Min: 106/53 Max: 178/73 Resp Min: 10 Max: 22 SpO2 Min: 93 % Max: 100 % Most Recent : Vitals: 05/22/22 1405 BP: 110/77 Pulse: 70 Resp: 14 Temp: 36.3 ??C (97.3 ??F) SpO2: 97% No intake/output data recorded. I/O this shift: In: 1030 [P.O.:30; I.V.:1000] Out: 410 [Urine:225; Drains:85; Blood:100] Assessment /Plan Principal Problem: Malignant 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, 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) (HCC) 66 y/o f s/p bilateral simple mastectomy, right sentinel lymph node biopsy in NAD. -Monitor VS, oxygenation, I&O, LADONNA output -Acute surgical pain: scheduled APAP, oxy IR PRN, cont home duloxetine, nortriptylline, topiramate -DM: SSI -HTN: cont home amlodipine -COPD: cont home inhalers -Hypothyroidism: cont home levothyroxine -Doxycycline PPX -DVT PPX: scd b/l, encourage ambulation, hold heparin subq for increased bleeding risk -ADAT Cosigned by Kianna Bunch MD PhD at 05/22/2022 4:23 PM ACCOUNTS PAYABLE PROCESSOR UNTS PAYABLE PROCESSOR UNTS PAYABLE PROCESSOR documented in this encounter H&P Notes * Kianna Bunch MD PhD - 05/22/2022 6:53 AM CST I have reviewed the H&P, examined the patient, and endorse the findings as written. Plan of Care : Based on the above findings, I consider Aleah Gerber to be an acceptable risk for : Procedure(s): MASTECTOMY BILATERAL BIOPSY SENTINEL LYMPH NODE with magtrace UNTS PAYABLE PROCESSOR Source Note - Kianna Bunch MD PhD - 05/09/2022 3:00 PM ACCOUNTS PAYABLE PROCESSOR PATIENT NAME: Aleah Gerber DATE OF : 1955 DATE OF OFFICE VISIT: 05/09/2022 REFERRING MD: Abbi Ventura MD A consultation was requested by Abbi Ventura MD for right a breast cancer. CHIEF COMPLAINT: Aleah Gerber is a 66 y.o. female with chief complaint of right breast cancer. DIAGNOSIS: 1. 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 NovaSom risk showed no mutation in MLH 1 or PMS2 suggesting that the patient does not have Grullon syndrome. HISTORY OF PRESENT ILLNESS: Ms. Gerber is a 66 y.o. woman referred by Abbi Ventura MD presents for evaluation of her new diagnosis of right breast cancer. The patient states that she was undergoing her MRI a month ago And was found to have an abnormality in the right breast. She underwent additional imaging and ultimately a core biopsy, which confirmed an invasive breast cancer. She presents today to discuss further management. The patient states that she has not noticed any abnormal masses in either breast. She denies any change in the appearance of her breasts or the skin of her breasts. She denies bilateral nipple discharge. She has no other systemic complaints and otherwise feels well today. PAST MEDICAL HISTORY: She has a past medical history of Anemia, Anxiety, Asthma, At risk for sleep apnea, BRCA2 positive,Breast cancer (CMS/HCC) (HCC) (2018), Breast cancer (CMS/HCC) (HCC) (2018), Colon cancer (CMS/HCC) (HCC), Colon cancer (CMS/HCC) (HCC) (2018), Colon polyps, COPD (chronic obstructive pulmonary disease) (CMS/HCC) (HCC), Depression, DVT (deep vein thrombosis) in (05/2017), DVT (deep venous thrombosis) (CMS/HCC) (HCC) (05/2018), Former smoker, History of chemotherapy, History of ileus (12/2017), History of radiation therapy, Hypercholesteremia, Hypertension, Leg swelling, Lower extremityedema, Memory loss, Mucositis, Obesity, VIOLETTE (obstructive sleep apnea) (11/12/2019), Personal history of other medical treatment, Personal history of other medical treatment, SOB (shortness of breath), SOB (shortness of breath) (2018), TIA (transient ischemic attack) (2007), Type 2 diabetes mellitus (HCC), and Vascular disease. She has no past medical history of Acute respiratory failure requiring reintubation (CMS/HCC) ([facility]), Atypical ductal hyperplasia of breast, Awareness under anesthesia, BRCA1 negative, BRCA1 positive,BRCA2 negative, Breast cyst, Breast injury, Delayed emergence from general anesthesia, Diabetes mellitus type I (HCC), Ductal hyperplasia of breast, Endometrial cancer (CMS/HCC) ([facility]), Fibrocystic breast, Hard to intubate, Lobular carcinoma in situ of breast, Malignant hyperthermia, Motion sickness, Ovarian cancer ([facility]), Pneumothorax, PONV (postoperative nausea and vomiting), Postoperative delirium, Pseudocholinesterase deficiency, Smoking, or Thyroid cancer ([facility]) ([facility]). PAST SURGICAL HISTORY: She has a past surgical history that includes Colonoscopy (2017); Incontinence surgery (2007); Tubal ligation (1991); Bladder suspension (2010); Hemicolectomy (Left, 12/27/2017); Inguinal Hernia Repair (Right, 1969); Breast biopsy (Left, 11/12/2017); Breast biopsy (Right, 2008); Breast lumpectomy (2017); Mastectomy, partial (Left, 01/14/2018); Portacath placement (01/2018); Portacath placement (Right, 2017); Hysterectomy W/ Bilateral Salpingoophorectomy (Bilateral, 02/13/2019); Vaginal delivery;Oophorectomy; and Breast biopsy (Right, 04/13/2022). MEDICATIONS: She has a current medication list which includes the following prescription(s): albuterol hfa, alprazolam, amlodipine, biotin, duloxetine dr, fluticasone propion-salmeterol, fluticasone propionate, levothyroxine, levothyroxine, lorazepam, nortriptyline, omeprazole, ondansetron, propranolol la, psyllium seed (with sugar), rybelsus, topiramate, and tramadol. ALLERGIES: She is allergic to oxaliplatin and tetanus vaccines and toxoid. FAMILY HISTORY: Her family history includes Breast cancer in her father's sister; Heart attack in her maternal grandfather and paternal grandmother; Heart attack (age of onset: 70) in her mother; Liver cancer (age of onset: 80) in her maternal grandmother; No Known Problems in her brother, brother, brother, sister, and sister; Pancreatic cancer (age of onset: 40) in her sister; Prostate cancer (age of onset: 60)in her father; Stent in her mother; pancreatic cancer in her sister. SOCIAL HISTORY: She reports that she quit smoking about 8 years ago. Her smoking use included cigarettes. She started smoking about 50 years ago. She smoked an average of 1 pack per day. She has never used smokelesstobacco. She reports that she does not use drugs. Patient denies consuming alcoholic drinks. ROS: Pertinent items are noted in HPI., I have personally reviewed the patient health history form which is scanned into her chart. PHYSICAL EXAMINATION: Vitals Ht 175.3 cm (5' 9 ) Wt 108.9 kg (240 lb) LMP (LMP Unknown) BMI 35.44 kg/m?? GENERAL: She is a well-developed, well-nourished woman in no acute distress. HEENT: Within normal limits. EXTREMITIES: Warm without edema. NEUROLOGICAL: She is alert and oriented x 3. BREAST EXAMINATION: Bilateral breast examination reveals normal ptotic breasts bilaterally. The right breast is without any dominant masses, skin changes, nipple discharge, or axillary adenopathy. The left breast has well healed post surgical changes with scar tissue and post-radiation skin discoloration. IMAGING: I personally ordered and reviewed all of the imaging today. FINDINGS: Left breast conservation therapy changes. There [...] posttreatment changes of LEFT breast conservation therapy. PATHOLOGY: I reviewed the pathology. Breast, right, MRI guided biopsy - Invasive ductal carcinoma - Histologic grade = at least intermediate - Greatest dimension in core material = 1.5 mm - Lymphovascular invasion = absent - Ductal carcinoma in situ - Nuclear grade = 3/3 without necrosis - Additional findings = columnar cell change with associated microcalcifications ESTROGEN RECEPTOR: Negative Levi Score: Proportion 0/5 Intensity 0/3 Total Score 0/8 PROGESTERONE RECEPTOR: Negative Levi Score: Proportion 0/5 Intensity 0/3 Total Score 0/8 HER-2: Negative (score 1+ by IHC) IMPRESSION: Right RECOMMENDATION: Mrs. Gerber is a 66 y.o. woman who presents today for a consultation regarding her new diagnosis ofright breast cancer. I reviewed the clinical, imaging, and pathology findings with her today. We discussed the treatment of breast cancer, which includes a combination of surgical therapy, systemic therapy, and radiation. We discussed her surgical therapy in great detail, and I explained the difference between and risks associated with breast conservation and mastectomy, as well as reconstructionoptions. Based on the clinical and imaging findings, previous history of breast cancer and BRCA 2+ status, I recommend bilateral mastectomy. I would also recommend a sentinel node biopsy for axillary staging. At this time the patient prefers to proceed without reconstruction and will not need referral to PRS. I explained the risks, benefits, and alternatives of this procedure, which include but are not limited to: bleeding, infection, and anesthetic risk. She understands and wishes to proceed. We will schedule her for surgery and recommend she continue with her medical oncologist after surgery . The patient understands and agrees with this plan. She knows to call with questions. Kianna Bunch MD PhD I have seen and examined Aleah Gerber with the Resident physician. We worked together to completethe office note, and I personally reviewed and edited the note. I agree with the evaluation and management plan outlined above. Kianna Bunch MD, PhD UNTS PAYABLE PROCESSOR documented in this encounter Miscellaneous Notes * Plan of Care - Elizabeth Morelos RN - 05/23/2022 11:19 AM CST Problem: Health Behavior: Goal: Understanding of discharge needs will improve Outcome: Progressing Problem: Lack of Knowledge: Goal: Ability to develop a pain control plan will improve Outcome: Progressing Goal: Ability to identify pain intensity on a pain scale and rate it consistently will improve Outcome: Progressing Goal: Ability to notify healthcare provider of pain before it becomes unmanageable or unbearable will improve Outcome: Progressing Problem: Medication: Goal: Satisfaction with pain management regimen will improve Outcome: Progressing Problem: Physical Regulation: Goal: Postoperative complications will be avoided or minimized Outcome: Progressing Problem: Self-Concept: Goal: Level of anxiety will decrease Outcome: Progressing Goal: Ability to verbalize positive feelings about self will improve Outcome: Progressing Problem: Sensory: Goal: Pain level will decrease Outcome: Progressing Goal: Expressions of feelings of enhanced comfort will increase Outcome: Progressing Problem: Skin Integrity: Goal: Demonstration of wound healing without infection will improve Outcome: Progressing Goals: Clinical Goals for the Shift: pain control, up ad lid, discharge today and drains teaching Summary: in progress UNTS PAYABLE PROCESSOR * Plan of Care - Beck Lutz RRT - 05/23/2022 8:43 AM CST Pt received tx with no adverse reactions. Demonstrates good technique and understanding. Will transition to nurse administration per RT protocol. UNTS PAYABLE PROCESSOR * Plan of Care - Lorrie Davey RN - 05/22/2022 1:59 PM CST Goals: Clinical Goals for the Shift: Patient will rate pain 4/10 or below for today's shift Problem: Health Behavior: Goal: Understanding of discharge needs will improve Outcome: Progressing Problem: Lack of Knowledge: Goal: Ability to develop a pain control plan will improve Outcome: Progressing Goal: Ability to identify pain intensity on a pain scale and rate it consistently will improve Outcome: Progressing Goal: Ability to notify healthcare provider of pain before it becomes unmanageable or unbearable will improve Outcome: Progressing Problem: Medication: Goal: Satisfaction with pain management regimen will improve Outcome: Progressing Problem: Sensory: Goal: Ability to identify factors that increase the pain will improve Outcome: Progressing Goal: Pain level will decrease Outcome: Progressing Problem: Activity: Goal: Ability to maintain or regain function will improve Outcome: Progressing Problem: Lack of Knowledge: Goal: Knowledge of disease or condition will improve Outcome: Progressing Goal: Knowledge of the prescribed therapeutic regimen will improve Outcome: Progressing Problem: Physical Regulation: Goal: Postoperative complications will be avoided or minimized Outcome: Progressing Problem: Self-Concept: Goal: Level of anxiety will decrease Outcome: Progressing Goal: Ability to verbalize positive feelings about self will improve Outcome: Progressing Problem: Sensory: Goal: Pain level will decrease Outcome: Progressing Goal: Expressions of feelings of enhanced comfort will increase Outcome: Progressing Problem: Skin Integrity: Goal: Demonstration of wound healing without infection will improve Outcome: Progressing Summary: Patient agrees to the goals of this admission. Patient's pain and nausea managed with ordered medications, tolerating diet, ambulating in halls with RN supervision, monitoring I&O's and vitals. UNTS PAYABLE PROCESSOR * Perioperative Nursing Note - Jenifer Zazueta RN - 05/22/2022 9:23 AM ACCOUNTS PAYABLE PROCESSOR joao Anaya took left breast fresh specimen at 0923 UNTS PAYABLE PROCESSOR * Perioperative Nursing Note - Jenifer Zazueta RN - 05/22/2022 9:07 AM ACCOUNTS PAYABLE PROCESSOR joao Anaya took fresh right breast specimen at 0907 UNTS PAYABLE PROCESSOR * Op Note - Kianna Bunch MD PhD - 05/22/2022 8:10 AM CST 05/22/22 Operative Report SURGEON: Kianna Bunch MD PhD SURGICAL TEAM: Surgeon(s) and Role: * Kianna Bunch MD PhD - Primary * Shady Ritchie MD - Resident - Assisting DATE OF SURGERY : 05/22/2022 PREOPERATIVE DIAGNOSIS: Pre-op Diagnosis * Malignant 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, 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) (HCC) [C50.212, Z17.1] POSTOPERATIVE DIAGNOSIS: Post-op Diagnosis * Malignant 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, 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) (HCC) [C50.212, Z17.1] PROCEDURE: MASTECTOMY BILATERAL (B), BIOPSY SENTINEL LYMPH NODE with magtrace (R) 1. left simple prophylactic mastectomy. 2. Injection of Lymphazurin blue dye to right breast. 3. right sentinel lymph node biopsy with blue dye and magtrace. 4. right simple mastectomy. INDICATION FOR PROCEDURE: The patient is a 66 y.o. female who is diagnosed with a Pre-op Diagnosis * Malignant 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, 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) (HCC) [C50.212, Z17.1] Aleah Gerber is a 66 y.o. woman who was found to have a Pre-op Diagnosis * Malignant 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, 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) (HCC) [C50.212, Z17.1]. She has elected to proceed with bilateral mastectomies with sentinel lymph node biopsy for axillary staging. ANESTHESIA: General IMPLANTS: Nothing was implanted during the procedure FINDINGS The patient underwent a right mastectomy . The tissue was unremarkable. The right sentinel lymph node procedure identified lymph nodes which were grossly normal. The left mastectomy was performed Allof the margins appeared grossly normal. OPERATIVE DETAILS After obtaining informed consent, the patient was brought into the operating room placed on procedure table in the supine position. The patient had previous undergone lymphoscintigraphy to identify the sentinel lymh nodes. A time-out was performed verifying correct patient, correct procedures, correct positioning, correct special equipment in the room. General anesthesia was induced . Bilateral sequential compression devices were applied to both lower extremities and a single dose of antibiotics was administered intravenously 20 minutes prior to the incision time. The patient's chest was prepped and draped in the standard surgical fashion. Attention was first turned to the left prophylacticside. A incision was made with a scalpel and carried down through the dermis with electrocautery. Asuperior flap was created up to the clavicle and was taken down onto the chest wall. An inferior flap was then created down to the inframammary fold which was taken down onto the rectus abdominis andserratus anterior muscles. Care was taken not to enter the fascia of either of these 2 muscles. A medial flap was created down to the sternal border and a lateral flap was created down to the latissimus dorsi. Once all 4 flaps were created, the breast was removed from the posterior attachments using electrocautery. Care was taken to include the pectoralis major muscle fascia en bloc with the breast. The breast was then marked with a stitch in the axillary tail and was passed off the field. Attention was then turned to the wound. Aggressive hemostasis was obtained with electrocautery. The wound was irrigated with copious amounts of sterile saline. A warm wet sponge was then placed in the cavity. We then directed our attention to the right breast. 5 mL of Lymphazurin blue dye and magtrace were injected in a retroareolar fashion and a five minute breast massage was performed. A incision was made with a scalpel and carried down through the dermis with electrocautery. A superior flap was created up to the level of the clavicle and was taken down onto the chest wall. An inferior flap was created down to the inframammary fold which was taken down onto the rectus abdominis and serratus anterior muscles. Care was taken not to enter the fascia of either of these 2 muscles. A medial flap was created down to the sternal border and a lateral flap was created down to the latissimus dorsi. Once all 4 flaps were created, the breast was removed from the posterior attachments using electrocautery. Care was taken to include the pectoralis major muscle fascia en bloc with the breast. The breast was then marked with a stitch in the axillary tail and was passed off the field. The clavipectoral fascia was then incised along the pectoralis muscle. A blue lymphatic was immediately identified. This was followed down to blue lymph nodes. These were excised as well as all iron- containing lymph nodes and passed off the field. No other iron-containing or blue lymph nodes were identified and no other palpable nodes were identified. Attention was then turned to the wound. Aggressive hemostasis was obtained with electrocautery. The wound was irrigated with copious amounts of sterile saline. Next drains were inserted through a separate incision site into each of the wounds. Each of the woundswas closed with a running 0 Quill suture. Farzaneho was applied. The procedure was concluded. All needle and sponge counts were reported correct x2. [ I was and present scrubbed for the entire procedure. ] Estimated Blood Loss: 100 mL Urine output : Not measured Intraoperative Fluids: Five hundred mls Blood/Blood Products Transfused: 0 mls Specimens: Order Name Source Comment Collection Info Order Time SURGICAL PATHOLOGY Lymph node, sentinel breast Collected By: Kianna Bunch MD PhD 05/22/2022 8:56AM Complications: None Condition on Discharge from the operating room was stable Kianna Bunch MD PhD Date: 05/22/2022 Time: 10:33 AM TEACHING ATTESTATION : I was present and directly participated in the entire procedure (including opening and closing). UNTS PAYABLE PROCESSOR * Pre-Procedure Instructions - Sofie Avendano NP - 05/11/2022 12:59 PM ACCOUNTS PAYABLE PROCESSOR Center for Preoperative Assessment and Planning CP[facility] Clinic Location: [facility] The night before your surgery: * Do not eat anything after midnight the night before your procedure. and * Do not smoke or use tobacco products after midnight the night before surgery. It is best to stop smoking now to improve your health. The morning of your surgery: * You may have clear liquids on your surgery day. You must stop drinking two hours before you arrive to the surgery facility. Acceptable clear liquids include water, clear sports drinks, black coffee, or clear soda. DO NOT drink any milk, creamer, or alcohol. * Your surgeon's office may have provided additional instructions or restrictions. Please follow those instructions. * You may brush your teeth and rinse your mouth out. * Do not glue your dentures. * Do not wear jewelry, body piercings, makeup, hairpins, false eyelashes or contact lenses to the hospital. * Leave any valuables at home or with your family. * If you have an implantable device with a remote, bring the remote with you on the day of surgery. * If you use home oxygen, bring your portable oxygen tank with you on the day of surgery * If you are going to be admitted after surgery at [facility], COVID testing may be performed on the day of surgery, even if you are up to date on your COVID-19 vaccine. * If having surgery at [facility], you may want to bring a credit card if you want to use our Mobile Pharmacy for your discharge medications. Mobile pharmacy is not available at [facility], the [facility], or the [place] [facility]. Outpatient Surgery: may stay 1 night * You must have a responsible adult drive you home and stay with you for 24 hours after your surgery * You cannot be alone at home or in a hotel * Please call your surgeon's office if you do not have someone to drive you home and/or stay with you after surgery * Please bring any items you may need to spend the night in the hospital. Sometimes patients need to be cared for in the hospital overnight. If you have Sleep Apnea (VIOLETTE): * Bring your CPAP/BiPAP/VPAP machine to the hospital the day of your surgery * For a few days after your surgery, you will need to wear your CPAP/ BiPAP/VPAP machine any time your are sleeping. This includes when you take a nap. If you have Diabetes: * If your blood sugar is low before you come to the hospital, drink a small amount of sugar water or clear juice like apple or cranberry juice. DO NOT drink orange or pineapple juice. These are not clear liquids. * If you take insulin be sure to read the Medicine Instructions. * Please call your surgeon and/or the CPAP Clinic if you have any questions. Instructions For Your Medications: Pre-Surgery Instructions: Medication Instructions albuterol HFA (PROVENTIL HFA,VENTOLIN HFA,PROAIR HFA) 90 mcg/actuation inhaler Take as prescribed ALPRAZolam (XANAX) 0.25 mg tablet Take on day of surgery if needed amLODIPine (NORVASC) 5 mg tablet Take as prescribed diphenhydrAMINE (BENADRYL) 25 mg capsule Don't take on day of surgery DULoxetine DR (CYMBALTA) 60 mg capsule Take as prescribed fluticasone propion-salmeteroL (ADVAIR DISKUS) 500-50 mcg/dose diskus inhaler Take as prescribed fluticasone propionate (FLONASE) 50 mcg/actuation nasal spray Don't take on day of surgery levothyroxine (SYNTHROID) 75 mcg tablet Take as prescribed nortriptyline (PAMELOR) 10 mg capsule Take as prescribed omeprazole (PriLOSEC) 20 mg capsule Take as prescribed ondansetron (ZOFRAN) 4 mg tablet Take on day of surgery if needed propranolol LA (INDERAL LA) 60 mg 24 hr capsule Take as prescribed topiramate (TOPAMAX) 25 mg tablet Take as prescribed traMADoL (ULTRAM) 50 mg tablet Take on day of surgery if needed General Instructions For Medications: * Stop all of these medications 5 days prior to your surgery: excedrin, motrin, advil, ibuprofen, aleve, naproxen, meloxicam, celebrex, celecoxib. For medications that you are instructed to take on the morning of surgery, take the medications with a few sips of water. Stop all of these medications 7-14 days prior to your surgery: Vitamin E, Herbal medicines, Diet Pills If you use inhalers, please bring them with you on the day of your procedure. If you have pain, you may take tylenol (acetaminophen). Do not take more than 6 tablets or 3000 mg (3 g) within a 24 period. Call your surgeon and the CPAP clinic if any of the following happens before surgery: Any changes in your health You have a fever You have any signs of an infection (chest, urinary tract or tooth) You have been to the Emergency Room or were in the hospital You have started taking any new medications You have questions about a bowel prep or special diet before surgery You have symptoms of COVID-19 such as a new or worsening cough, shortness of breath, fever, body aches, loss of taste or smell, diarrhea or vomiting, or sore throat. You have a household contact with COVID-19. You test positive for COVID-19. UNTS PAYABLE PROCESSOR * Perioperative Nursing Note - Mirella Gentile RN - 05/11/2022 10:01 AM ACCOUNTS PAYABLE PROCESSOR Center for Preoperative Assessment and Planning Perioperative Nursing Note Telephone Preoperative Evaluation ([facility]) - TELEPHONE ONLY, NO PHYSICAL EXAM Date: 05/11/22 Vitals: 05/11/22 0955 Weight: 108.9 kg (240 lb) Height: 175.3 cm (5' 9 ) CHEST CIRCUMFERENCE: NA Social History Tobacco Use Smoking Status Former Packs/day: 1.00 Types: Cigarettes Start date: 1972 Quit date: 2014 Years since quittin.0 Smokeless Tobacco Never Substance and Sexual Activity Drug Use Never Alcohol Use Q1: How often do you have a drink containing alcohol?: Never Q2: How many drinks containing alcohol do you have on a typical day when you are drinking?: Patientdoes not drink Q3: How often do you have six or more drinks on one occasion?: Never Outpatient Medications Marked as Taking for the 05/22/22 encounter (Hospital Encounter) Medication Sig Dispense Refill albuterol HFA (PROVENTIL HFA,VENTOLIN HFA,PROAIR HFA) 90 mcg/actuation inhaler Inhale 2 puffs every6 (six) hours as needed for wheezing (Patient taking differently: Inhale 2 puffs every 6 (six) hours as needed for wheezing or shortness of breath) 1 each 5 ALPRAZolam (XANAX) 0.25 mg tablet Take 0.25 mg by mouth 3 (three) times a day as needed for anxiety amLODIPine (NORVASC) 5 mg tablet Take 5 mg by mouth every morning diphenhydrAMINE (BENADRYL) 25 mg capsule Take 25 mg by mouth every morning DULoxetine DR (CYMBALTA) 60 mg capsule Take 60 mg by mouth nightly fluticasone propion-salmeteroL (ADVAIR DISKUS) [...] day levothyroxine (SYNTHROID) 75 mcg tablet Take 75 mcg by mouth every morning nortriptyline (PAMELOR) 10 mg capsule Take 10 mg by mouth nightly omeprazole (PriLOSEC) 20 mg capsule Take 20 mg by mouth daily as needed ondansetron (ZOFRAN) 4 mg tablet Take 4 mg by mouth every 8 (eight) hours as needed for vomiting ornausea propranolol LA (INDERAL LA) 60 mg 24 hr capsule Take 60 mg by mouth 2 (two) times a day topiramate (TOPAMAX) 25 mg tablet Take 25 mg by mouth 3 (three) times a day traMADoL (ULTRAM) 50 mg tablet Take 50 mg by mouth every 8 (eight) hours as needed for pain Implants Other - see comments [employer] [id number] Powerport Clearvue Airguard 8fr 1 Lumen Lightweight Intermediate Latex Free - [id number] - Implanted (Right) Chest Wall Inventory item: [employer] Powerport Clearvue Airguard 8fr 1 Lumen Lightweight Intermediate Latex Free [id number] Model/Cat number: [id number] Rn Progressive Care Unit: [employer] Lot number: [id number] Size: 8F Device identifier: [id number] Device identifier type: GS1 As of 01/14/2018 Status: Implanted SKIN Piercings Remaining: Yes Wound (LDAs) Type of Wound (LDA): (Denies) SCREENINGS Ele index score: 100 PATIENT CARE PLANNING Advance Directives (For Healthcare) Have you reviewed your Advance Directive and is it valid for this stay?: Not applicable Advance Directive: Patient does not have advance directive, Patient would like information, Information provided Information Provided on Healthcare Directives: Yes Assistive Devices/DME: Eyeglasses Hearing - Right Ear: Functional Hearing - Left Ear: Functional Discharge Planning Type of Residence: Private residence Living Arrangements: Spouse/significant other Support Systems: Spouse/significant other Patient expects to be discharged to:: Private residence (Mailroom Supervisor and Caregiver: Daughter) [employer]INEER NO ADDITIONAL COMMENTS/ FOLLOW UP UNTS PAYABLE PROCESSOR * Pre-Procedure Instructions - Mirella Gentile RN - 05/11/2022 10:00 AM ACCOUNTS PAYABLE PROCESSOR CENTER FOR PREOPERATIVE ASSESSMENT AND PLANNING (CPAP) PRE-SURGICAL NURSING INSTRUCTIONS Telephone Assessment General Information Discussed with Patient: Surgery location provided to patient. Arrival time and surgical time will be provided to the patient by their surgeon. You should wear clothing that is clean, loose, comfortable and easy to get in and out of on the dayof surgery. You should leave your valuables and any jewelry at home. No metal or piercings are allowed in the operating room. You should bring your insurance card, a photo ID (example: Mailroom Supervisor's License) and a method of payment for any insurance copay, deductible or copay for discharge medications. You should bring a complete, up-to-date list of all your medications on the day of surgery, including any over the counter medications or supplements you may take. You should bring your Advanced Directive and/or Living Will with you on the day of surgery if you have not verified a copy is already in your Epic Chart. If you are having surgery at [facility], please arrive on the day of surgery with the name and phone number of your local 24 hour pharmacy. Due to evening discharges, your routine pharmacy may be closed. In order to obtain your prescriptions that evening, your surgeon may need to send prescriptions to this pharmacy or have you take prescriptions to this pharmacy when you are discharged. Without this information, you may not be able to obtain your prescriptions that evening. A Guide for Patients Having Surgery: Your Pathway to Excellent Care OUR GOAL IS TO PROVIDE YOU WITH EXCELLENT CARE Use this guide to learn about what you can do before, during and after surgery to help your recovery. You are the most important person on your health care team. By becoming informed and involved, you can contribute to the success of your surgery. If your surgeon's directions are different than those in this guide, talk with your nurse or surgeon to confirm the information. It is important that you understand how to take care of yourself at home after surgery. Be sure to bring this guide with you on the day of surgery and take it home with you after surgery. Write down questions for your nurse or surgeon on the last page of this booklet. Important pages to be reviewed BEFORE surgery: Page 1: QR codes for Surgery Center maps Page 3: Types of Anesthesia Page 5: Tips for the day & night before surgery Page 6: When to stop eating BEFORE surgery and examples of clear liquids Page 7-10: Preventing Infection: Chlorhexidine Gluconate (CHG) Bathing Instructions You may access A Guide for Patients Having Surgery: Your Pathway to Excellent Care by the followinglink: [email or web address] How To Prepare Your Skin For Surgery Below is the Pre-Surgical Bathing Protocol you should follow for your surgery. If your surgeon provides you different bathing instructions, please follow your surgeon's orders. 2 Day CHG Bathing Protocol (no nasal ointment) PREVENTING INFECTION (DECOLONIZATION): Decolonization is the use of a topical antiseptic soap and sometimes a nasal ointment to remove bacteria (germs) from the skin's surface. Antiseptic soap: Chlorhexidine gluconate or CHG (brand name: Hibiclens??) Before surgery, your entire body must be thoroughly cleaned. CHG helps to reduce the bacteria on your skin. You may be given one or more bottles of CHG or you may be asked to obtain from your preferred pharmacy. Be sure to ask your pharmacist if you need help finding this product. Nasal ointment: Mupirocin (brand name: Bactroban) Your surgeon may also prescribe a topical ointment that is rubbed inside each of the nostrils to reduce the bacteria in your nose. Mupirocin ointment requires a prescription. If needed, it will be prescribed by your surgeon and obtained from your preferred pharmacy. SHOWERING WITH ANTISEPTIC SOAP (CHG) What You Need For Each Shower 60 mL (?? cup) of CHG 2 clean washcloths CHG Bathing Instructions First, shampoo and rinse your hair with your own shampoo (no conditioners). Do this so the antiseptic soap isn't washed off by your shampoo. Wash face with warm water. Turn off shower and stand away from the water. Use 2 clean washcloths to apply the antiseptic soap to all areas as described below: Pour 30 mL (1/8 cup) of CHG on washcloth #1: Using washcloth- start at jawline and firmly massage the soap into the skin in a circular motion to clean neck, shoulders, chest, back, both armpits, arms, hands and abdomen. Finish with legs and feet. Pour 30 mL (1/8 cup) of CHG on washcloth #2: Using washcloth- firmly massage the soap into the skinin a circular motion to clean groin area, perineum and buttocks. (Do not use CHG on genital area.) Huggins Points: The CHG antiseptic soap will not bubble or lather very much. If you get soap in your eyes, ears or mouth, rinse well with cool water. When finished, leave the soap on your skin for 2 minutes before rinsing. Dry off with a clean fresh towel. Wear clean clothes or pajamas to sleep in. After showering DO NOT put on deodorant, hair products or conditioners, lotions or creams, powders,Vaseline or any non-essential products. If you cannot reach the surgical site, such as the back, please have someone help you. Shaving: You may shave your face, legs and underarms during your evening shower before you apply the CHG antiseptic soap. Be careful not to cut or oumar your skin. Avoid shaving on the day of surgery. Deodorant: Patients following the 5-Day CHG protocol may apply deodorant on the days leading up to surgery, being sure, however, to avoid use on the evening before and day of surgery. All other products should be avoided for the full 5 days. 2-Day CHG Bathing Protocol The Evening Before Surgery: Take a shower with Antiseptic soap (CHG). Follow the steps for ???Showering with Antiseptic Soap (CHG)?? above. Change all linens on your bed so you are sleeping in clean fresh sheets and pillowcases. Remove nail coverings, artificial nails and nail wolof. The Morning of Surgery: Take a shower with Antiseptic soap (CHG). Follow the steps for ???Showering with Antiseptic Soap (CHG)?? above. Put clean clothes on after you shower. Travel/Exposure Screening: Travel Screening Have you traveled outside the [place] in the last 6 months?: No Exposure Screening Have you been exposed to anyone who is sick in the last 30 days?: No Have you been exposed to or tested positive for COVID-19 within the last 10 days?: No Have you tested positive for monkeypox within the last 28 days or are you waiting for a monkeypox test result?: No Infectious Disease Screening Are you having any of the following:: None As of 02/27/2022 any COVID TESTING required for surgery will be set up by your surgeon's office. Please reach out to your surgeon's office if you develop any COVID symptoms, test positive for COVID or are exposed to a COVID positive person. If you have questions, please call the CPAP Staff at [phone], Saturday-Saturday 8am-4:30pm. All patients should read the below section: All visitors/patients are being asked to wear a clean face mask when entering the hospital. COVID 19 Updates & Visitor Policy: Please access [email or web address] for the most updated information. Information on [facility]: Please view [email or web address] (Patient & Visitor Information) for additional details regarding Advanced Directive forms, AWARE, directions, parking information, lodging, Internet access, dining and more. Information on [facility] or [facility] [place] ([facility]): Please view [email or web address] (Patient and Visitor Information) for parking/directions and more. For MyChart information, to activate account or password recovery, please go to [email or web address] or call [phone] (toll-free: [phone]). Information for Suicide Prevention: National Suicide Prevention Lifeline (3-609- 888-RNLJ (6511)). Surgery Times: For patients having surgery @ [facility], [facility], [facility] or [facility] [place] ([facility]), if your surgeon's office has not notified you of your surgery time by NOON THE BUSINESS DAY BEFORE your surgery, please call [phone] and ask for your surgeon's office Dr. Bunch. UNTS PAYABLE PROCESSOR documented in this encounter Plan of Treatment Not on file documented as of this encounter Procedures Procedure Name Priority Date/Time Associated Diagnosis Comments POCT GLUCOSE DEVICE Routine 05/23/2022 7:28 AM ACCOUNTS PAYABLE PROCESSOR POCT GLUCOSE DEVICE Routine 05/22/2022 8:44 PM ACCOUNTS PAYABLE PROCESSOR POCT GLUCOSE DEVICE Routine 05/22/2022 5:36 PM ACCOUNTS PAYABLE PROCESSOR POCT GLUCOSE DEVICE Routine 05/22/2022 11:07 AM ACCOUNTS PAYABLE PROCESSOR SURGICAL PATHOLOGY Routine 05/22/2022 8: 52 AM ACCOUNTS PAYABLE PROCESSOR Malignant 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, 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) (HCC) BIOPSY SENTINEL LYMPH NODE 05/22/2022 7:52 AM ACCOUNTS PAYABLE PROCESSOR Malignant 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, 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) (HCC) Special Needs Senitmag needed day of surgery MASTECTOMY BILATERAL 05/22/2022 7:52 AM ACCOUNTS PAYABLE PROCESSOR Malignant 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, 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) (HCC) Special Needs Senitmag needed day of surgery POCT GLUCOSE DEVICE Routine 05/22/2022 6:40 AM ACCOUNTS PAYABLE PROCESSOR documented in this encounter Results * POCT glucose (05/23/2022 7:28 AM ACCOUNTS PAYABLE PROCESSOR) Glucose, POC 179 70 - 199 mg/dL [facility] Blood 05/23/2022 7:28 AM ACCOUNTS PAYABLE PROCESSOR 05/23/2022 7:28 AM ACCOUNTS PAYABLE PROCESSOR us Kianna Bunch MD PhD LAB POCT ORDERABLES - ROSEMARY CE Final Result [facility] Department [place] [address] * (ABNORMAL) POCT glucose (05/22/2022 8:44 PM ACCOUNTS PAYABLE PROCESSOR) Glucose, POC 256(H) 70 - 199 mg/dL [facility] Blood 05/22/2022 8:44 PM ACCOUNTS PAYABLE PROCESSOR 05/22/2022 8:44 PM ACCOUNTS PAYABLE PROCESSOR Kianna Bunch MD PhD LAB POCT ORDERABLES - ROSEMARY CE Final Result Performing Organization Address [facility] Co de Phone Number [facility] [place] [address] * POCT glucose (05/22/2022 5:36 PM ACCOUNTS PAYABLE PROCESSOR) Glucose, POC 196 70 - 199 mg/dL [facility] Blood 05/22/2022 5:36 PM ACCOUNTS PAYABLE PROCESSOR 05/22/2022 5:36 PM ACCOUNTS PAYABLE PROCESSOR Kianna Bunch MD PhD LAB POCT ORDERABLES - ROSEMARY CE Final Result Performing Organization Address [facility] de Phone Number [facility] [place] [address] * POCT glucose (05/22/2022 11:07 AM ACCOUNTS PAYABLE PROCESSOR) Glucose, POC 199 70 - 199 mg/dL [facility] Blood 05/22/2022 11:0 7 AM ACCOUNTS PAYABLE PROCESSOR 05/22/2022 11:07 AM ACCOUNTS PAYABLE PROCESSOR Kianna Bunch MD PhD LAB POCT ORDERABLES - ROSEMARY CE Final Result Performing Organization Address [facility] de Phone Number [facility] [place] [address] * Surgical pathology (05/22/2022 8:52 AM ACCOUNTS PAYABLE PROCESSOR) Tissue (Lymph node, sentinel breast) 05/22/2022 8:52 AM ACCOUNTS PAYABLE PROCESSOR Tissue (Breast, simple mastectomy) 05/22/2022 8:57 AM ACCOUNTS PAYABLE PROCESSOR Tissue (Breast, simple mastectomy) 05/22/2022 9:14 AM ACCOUNTS PAYABLE PROCESSOR Narrative PATHOLOGY [facility] - 05/30/2022 9:38 AM ACCOUNTS PAYABLE PROCESSOR EPIC results best viewed via link to PDF [facility]a Mu[facility]iz [facility] of Surgical [place] [address] Note to Patients: This report may contain [...] can answer questions and explain the details. SURGICAL PATHOLOGY REPORT FINAL WITH ADDENDUM Patient Name: ?? ALEAH GERBER Gender: ??F : ??1955 (Age: 66) Address: ??[address] [place] [address] ??[id number] Hospital #: ??[id number] Taken:05/22/2022 Received:05/22/2022 Reported: 05/30/2022 Patient Type: [facility] OP In Bed ?? Service: Oncology Location: [place] [address] Physician(s): ??Hortencia Warren M.D. David Yablonsky, DO Jorge G. Zarate-Rodriguez, M.D. Diagnosis: A. Lymph node, right axillary, sentinel, excision ? - No evidence of malignancy in two lymph nodes (0/2) B. Breast, right, simple mastectomy ? - Invasive ductal carcinoma ??(see comment) ? - Atleast 5 mm (around the biopsied area) ? - Histologic grade= 2/3 (Tub 3 + Nuc 2 + Uli 1 = 6/9 by ESBR criteria) ? - Surgical margins are negative (all margins greater than 10 mm) ?- Lymphovascular invasion not identified ? - Previous biopsy site changes (clip identified) ? - Associated with chronic inflammation ? - Ductal carcinoma in situ (DCIS) ? - Low nuclear grade (1/3 by SBR criteria) ? - Non-extensive, not directly measurable ? - Solid and cribriform type focal comedonecrosis, associated with chronic inflammation ? - Surgical margins negative for DCIS (all margins greater than 5 mm) ? - Previous surgical site changes with fat necrosis ? - Incidental radial scar ? - Background breast with cystic apocrine metaplasia, columnar cell change/hyperplasia, usual ductal hyperplasia ? - Benign breast tissue with microcalcifications ? - Benign portion of skin and nipple ? - No evidence of malignancy in eight lymph nodes (0/8) ? - See synoptic report C. Breast, left, simple mastectomy ? - Focal ductal cytological atypia with microcalcifications; favor radiation/treatment effect ? - Cystic apocrine metaplasia, stromal fibrosis, adenosis with microcalcifications ? - Benign portion of skin and nipple ? - Three incidental lymph nodes with no evidence of malignancy (0/3) ? - No invasive carcinoma identified l/05/25/2022 09:24 By this signature, I attest that the above diagnosis is based upon my personal examination of the slides(and/or other material indicated in the diagnosis). Mason Ramsey M.D., Ph.D. Report Electronically Reviewed and Signed Out By ??Mason Ramsey M.D., Ph.D. 05/30/2022 09:38:14 Microscopic Description and Comment: Microscopic examination substantiates the above cited diagnosis. The prior biopsy [id number] has been reviewed. In part B, the area of invasive carcinoma is small and showed some overlapping features with DCIS, hence, immunohistochemical stains (single antibody procedures with appropriate controls) were performed for CK5/6 ??and p63. ??p63 shows lack of myoepithelial cell staining around the area of invasion, CK5/6 show loss of staining around invasive component and retained around DCIS. Overall, morphological features are most consistent with a small focus of invasive carcinoma with associated DCIS. The morphology of the invasive carcinoma is similar to the prior biopsy. Deeper levels were performed and reviewed on part C. The attending pathologist personally reviewed one or more Faxitron radiograph(s) taken for the purpose of radiographic/pathologic correlation, including localizing clip(s) and/or calcification(s). The radiographic findings were correlated with the histologic findings. The areas of interest were embedded for histologic examination. The imaging findings support the above diagnosis. Yesica Prescott M.D. 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 ?? Operative procedure: Mastectomy bilateral, biopsy sentinel lymph node Specimen(s) Received: A: Right axillary sentinel lymph nodes B: Right breast stitch in low axillary lymph nodes C: Left breast, stitch in axillary tail Gross Description: Received in three formalin jars labeled with the patient's identifiers. A. ??Labeled right axillary sentinel lymph nodes are two fragments of lobular yellow adipose tissue (2.5 x 2.5 x 0.9 cm in aggregate). ??Dissection and palpation reveals two soft tovar pink lymph nodes (1.9 x 0.7 x 0.5 cm and 2.2 x 1.2 x 0.8 cm). ??The lymph nodes are submitted entirely as follows: ?? A1 Smaller lymph node, bisected A2 Larger lymph node, trisected Jar 1. B. ??Labeled right breast stitch in low axillary lymph nodes -Collected: 8:57 AM on 05/22/2022 -Received: 9:18 AM on 05/22/2022 -Placed in formalin: 9:25 AM on 05/22/2022 -Formalin fixation time: 35 hours and 30 minutes -Specimen orientation: Single stitch in low axillary lymph nodes -Specimen weight: 1332 g -Specimen Dimensions: ? Medial to Lateral: 24 cm ? Superior to Inferior: ??14.5 cm ? Anterior to Posterior: ??5.0 cm - Skin: ? Dimensions: ??23 x 15 cm ? Nipple/areola diameter: ??Nipple 1.1 cm in diameter, areola 5.5 cm in diameter -Margins inked: ? Anterior/Superior: Blue ? Anterior/Inferior: ??Green ? Posterior: ??Black -Sectioned: ??Medial to lateral -Number of slices: 16 -Gross findings: An area of barfield yellow adipose tissue and purple congestion grossly consistent with a previous biopsy site. ??(slices 8-9) ? Size: ??1.5 x 0.7 x 0.7 cm ? Location: ??In the approximate 11 o'clock position 7.0 cm from the nipple ? Closest margin: ??3.2 cm posterior - There is an adherent fragment of lobular yellow adipose tissue on the upper outer quadrant marked with a single suture is being the low axillary lymph nodes (8.5 x 4.2 x 2.0 cm). ??Dissection and palpation reveals eight putative lymph nodes ranging in greatest dimension from 0.4-2.2 cm.: -Specimen radiographed: ??Yes -Radiograph findings: A cylinder clip in the previously described potential biopsy site -Diagram: ??Yes Summary of sections: B1-B6 Entire biopsy site submitted medial to lateral, B3 tissue surrounding cylinder clip (slices 8-9) B7 Posterior margin closest to the biopsy site B8 Random section from the upper outer quadrant, slice 12 B9 Random section from the lower outer quadrant, slice 11 B10 Random section from the upper inner quadrant, slice 5 B11 Random section from the lower inner quadrant, slice 6 B12 Nipple B13 Skin B14 Single lymph node B15 Single lymph node B16 Two lymph nodes, larger bisected smaller inked black B17 Two lymph nodes, larger bisected smaller inked black B18 Two lymph nodes Jar: 4 C. ??Labeled left breast, stitch in axillary tail -Collected: 9:14 AM on 05/22/2022 -Received: 9:32 AM on 05/22/2022 -Placed in formalin: 9:42 AM on 05/22/2022 -Formalin fixation time: 35 hours and 15 minutes -Specimen orientation: Single suture on the axillary tail -Specimen weight: 1267 g -Specimen Dimensions: ? Medial to Lateral: 23.0 cm ? Superior to Inferior: ??14.5 cm ? Anterior to Posterior: ??5.0 cm - Skin: ? Dimensions: ??23 x 14.5 cm ? Nipple/areola diameter: ??Nipple 1.2 cm in diameter, areola 5.3 cm in diameter ? Skin lesions: 4.7 cm scar in the 9-10 o'clock position 6.5 cm from the nipple -Margins inked: ? Anterior/Superior: Blue ? Anterior/Inferior: ??Green ? Posterior: ??Black -Sectioned: ??Lateral to medial -Number of slices: Fourteen -Gross findings: An area of white fibrous tissue (3.5 x 2.1 x 1.2 cm) grossly consistent with a previous lumpectomy site in the 9 o'clock position 6.0 cm from the nipple and abutting the posterior margin. ??(Slices 11-13) There are focal masses. ?? Palpation of the tissue in the most upper outer quadrant reveals five putative lymph nodes (0.4-0.5 cm). -Specimen radiographed: ??Yes -Radiograph findings: Noncontributory -Diagram: ??Yes Summary of sections: C1-C3 Area of fibrous tissue grossly consistent with a previous lumpectomy site and the posterior margin submitted lateral to medial (slices 11-13) C4-C5 Random sections from the upper outer quadrant (slices 5-6) C6-C7 Random sections from the lower outer quadrant (slices 4-5) C8-C9 Random sections from the upper inner quadrant (slices 10-11) C10-C11 Random sections from the lower inner quadrant (slices 11-12) C12 Nipple C13 Skin with scar C14 Three lymph nodes C15 Two lymph nodes Jar: 4 ?? bao2/05/23/2022 10:44 PA(s): VENUS Esquivel (ASCP) ? CANCER CASE SUMMARY FOR INVASIVE CARCINOMA OF THE BREAST ? Procedure: ?Skin sparing (simple mastectomy) ? Lymph node sampling: ?Mandan lymph node(s) ? Specimen laterality: ?Right ? Tumor site invasive carcinoma: ?Upper inner quadrant ? 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 Tumor size: ?Greatest dimension: 5mm ? Histologic grade (Waldo Histologic Score): ?Tubular differentiation: ??Score 3 ?Nuclear pleomorphism: ??Score 2 ?Mitotic rate: Score 1 ?Overall grade: Grade 2: scores of 6 or 7 ? Tumor focality: ?Single focus of invasive carcinoma ? Ductal carcinoma in situ (DCIS): ?DCIS is present ? Negative for extensive intraductal component (EIC) ?Architectural patterns: Cribriform ?Architectural patterns: Solid ?Nuclear grade: Grade 1 (low) ?Necrosis: Present, focal (small foci or single cell necrosis) ? Lobular carcinoma in situ (LCIS): ?Not identified ? Extent of tumor: ?Skin is present and uninvolved ? Margins for invasive carcinoma: ?Margins uninvolved by invasive carcinoma ? Greater than 10mm ? Margins for DCIS: ?Margins uninvolved by DCIS ?Greater than 5 mm ? Lymph nodes: ?Total number of lymph nodes examined (sentinel and nonsentinel): 10 ?Number of sentinel nodes examined: 2 ? Lymph node involvement: ?All lymph nodes are negative ? Mandan node evaluation: ?H&E, multiple levels ? Response to presurgical therapy: ?No known presurgical therapy ?Not applicable ? Lymphovascular Invasion: ?Not identified ? Distant Site(s) Involved, if applicable (select all that apply): ?Not applicable ? Pathologic Stage Classification (pTNM, AJCC 8th Edition): ? TNM descriptors: ?Not applicable ? Primary tumor (invasive carcinoma) (pT): ?pT1a: ??Tumor >1 mm but <=5 mm in greatest dimension (round any measurement >1.0-1.9 mm to 2 mm) ? Regional Lymph Nodes (pN): ?Modifier: ??(sn): Only sentinel node(s) evaluated. ? Lymph nodes (pN): ?pN0: No regional lymph node metastasis identified ? Distant metastasis (pM): ?Not applicable ? The pathologic stage assigned here should be regarded as provisional, and may change after integration of clinical data ? not provided with this report. ? CAP VERSION: InvasiveBreast 4.5.0.0 ? By this signature, I attest that the above diagnosis is based upon my personal examination of the slides(and/or other material). Addenda/Procedures Addendum Ordered:06/22/2022Status:Signed OutAddendum Complete:06/22/2022y:Alberto Hernandez MD PhDAddendum Signed Out:06/22/2022 Addendum Diagnosis A digital scan of the original reference lab report will begin on page two of this addendum. This testing was ordered at the request of Dr. Lorenzo Go Block ??B 4 was selected, and sent for the testing referenced below. ?? Note: Refer to scanned physician request. A request for slide review was received. The case report, slides and/or blocks for the cited accession were retrieved from archives. I personally reviewed the original pathology report, examined the H&E slides, and the blocks and/or slides referenced were chosen.Zaida Hernandez MD PhDReport Electronically Reviewed and Signed Out By ??Zaida Hernandez MD PhD ??06/22/2022 13:26:04 ?? The Mammaprint test was performed by [facility], [place] [address]. The performance characteristics of some immunohistochemical stains, fluorescence in-situ hybridization tests and immunophenotyping by flow cytometry cited in this report (if any) were determined by the Surgical Pathology and Flow Cytometry Departments at [facility] as part of an ongoing quality lab technician program and in compliance with federally mandated [...] performance characteristics determined by the Surgical Pathology and Flow Cytometry Departments of [facility]. ??It has not been cleared or approved by the U. S. Food and Drug Administration. IMAGES AND SCANNED DOCUMENTS, IF INCLUDED, ONLY VIEWABLE IN PDF VERSION OF REPORT Kianna Bunch MD PhD LAB PATHOLOGY ORDERABLES F inal Result PATHOLOGY [facility] 3rd Floor [place], [place] [phone] * POCT glucose (05/22/2022 6:40 AM ACCOUNTS PAYABLE PROCESSOR) Glucose, POC 141 70 - 199 mg/dL [facility] Blood 05/22/2022 6:40 AM ACCOUNTS PAYABLE PROCESSOR 05/22/2022 6:40 AM ACCOUNTS PAYABLE PROCESSOR Kianna Bunch MD PhD LAB POCT ORDERABLES - [place] CE Final Result Performing Organization Address [facility] Co de Phone Number [facility] [place] [address] documented in this encounter Visit Diagnoses Diagnosis Malignant 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, estrogen receptor negative (HCC)- Primary documented in this encounter Admitting Diagnoses Diagnosis Malignant 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, estrogen receptor negative (HCC) documented in this encounter Administered Medications Inactive Administered Medications - up to 3 most recent administrations Medication Order MAR Action Action Date Dose Rate Site acetaminophen (TYLENOL) tablet 1,000 mg 1,000 mg, oral, Once, On Sat05/22/22 at 0630, For 1 dose, Pre-Op, Indications: Pre-Emptive AnalgesiaIndications:Pre-Emptiv e Analgesia Given 05/22/2022 6:32 AM ACCOUNTS PAYABLE PROCESSOR 1,000 mg acetaminophen (TYLENOL) tablet 1,000 mg 1,000 mg, oral, Every 6 hours scheduled, First dose (after last modification) on Sat05/22/22 at 1400, Indications: PainIndications:Pain Given 05/23/2022 12:15 PM ACCOUNTS PAYABLE PROCESSOR 1,000 mg Given 05/23/2022 4:59 AM ACCOUNTS PAYABLE PROCESSOR 1,000 mg Given 05/22/2022 7:03 PM ACCOUNTS PAYABLE PROCESSOR 1,000 mg albuterol HFA (PROVENTIL HFA,VENTOLIN HFA,PROAIR HFA) 90 mcg/actuation inhaler 2 puff 2 puff, inhalation, Every 6 hours PRN (respiratory services manager), wheezing, Starting on Sat05/22/22 at 1315 amLODIPine (NORVASC) tablet 5 mg 5 mg, oral, Every morning, First dose on Sat05/23/22 at 0900, Indications: hypertensionIndications:hypertension Given 05/23/2022 8:16 AM ACCOUNTS PAYABLE PROCESSOR 5 mg dextrose (D10W) 10% bolus 250 mL 250 mL, intravenous, at 1,000 mL/hr, Administer over 15 Minutes, Every 15 min PRN, blood glucose less than 70 mg/dL and UNABLE to swallow/take PO glucose/juice., Starting on Sat05/22/22 at 1313, After treatment for hypoglycemia, recheck BG followed by treatment every 15 minutes until the BG is greater than 100 mg/dL. Then check BG 1 hour post treatment. If BG is less than 100 mg/dL, repeat Q15 minute BG checks and treatment. Call MD for each episode of hypoglycemia., Indications: hypoglycemic disorderIndications:hypoglycemic disorder dextrose gel in packet 15 g 15 g, oral, Every 15 min PRN, low blood sugar, blood glucose less than 70 mg/dL, Starting on Sat05/22/22 at 1313, If patient is alert and able to eat/drink, give 15 gm glucose or one juice (4 fluid ounces) NOT ORANGE JUICE. After treatment for hypoglycemia, recheck BG followed by treatment every 15 minutes until the BG is greater than 100 mg/dL. Then check BG 1 hour post-treatment. If BG is less than 100 mg/dL, repeat Q15 minute BG checks and treatment. Call MD for each episode of hypoglycemia., Indications: hypoglycemic disorderIndications:hypoglycemic disorder doxycycline (VIBRAMYCIN) tablet/capsule 100 mg 100 mg, oral, 2 times daily (for quinolones,etc), First dose on Sat05/23/22 at 0600, Give 2 hrs before or 2 hrs after MVI, antacids, or other products containing sucralfate, magnesium, aluminum, iron, or zinc. May be taken without regard to meals., Indications: Prophylaxis, MedicalIndications:Prophylaxis, Medical Given 05/23/2022 4:59 AM ACCOUNTS PAYABLE PROCESSOR [address] (CYMBALTA) extended release capsule 60 mg 60 mg, oral, Nightly, First dose on Sat05/22/22 at 2100, Capsule may be opened and contents mixed with applesauce or apple juice ONLY. Do not crush, chew, cut, dissolve, open or otherwise manipulate tablet/capsule., Indications: Neuropathic PainIndications:Neuropathic Pain Given 05/22/2022 8:58 PM ACCOUNTS PAYABLE PROCESSOR 60 mg fluticasone furoate-vilanteroL (BREO ELLIPTA) 200-25 mcg/dose inhaler 1 puff 1 puff, inhalation, Daily (respiratory services manager), First dose on Sat05/22/22 at 1400 Given 05/23/2022 8:40 AM ACCOUNTS PAYABLE PROCESSOR 1 puff fluticasone furoate-vilanteroL (BREO ELLIPTA) 200-25 mcg/dose inhaler 1 puff 1 puff, inhalation, Daily, First dose (after last modification) on Bonnie 05/24/22 at 0900, RN to administer. Rinse mouth with water after use. Do not swallow. glucagon injection 1 mg 1 mg, intramuscular, Every 30 min PRN, low blood sugar, blood glucose less than 70 mg/dL AND no IV access AND unable to take PO glucose/juice., Starting on Sat05/22/22 at 1313, After Glucagon is administered, position patient on side if possible to avoid aspiration. Obtain IV access. Follow glucagon treatment with glucose treatment or IV dextrose. After treatment for hypoglycemia, recheck BG followed by treatment every 15 minutes until the BG is greater than 100 mg/dL. Then check BG 1 hour post treatment. If BG is less than 100 mg/dL, repeat Q15 minute BG checks and treatment. Call MD for each episode of hypoglycemia. Reconstitute 1 mg vial with 1 mL SWFI. Use immediately following reconstitution. HYDROmorphone (DILAUDID) injection 0.2 mg 0.2 mg, intravenous, Administer over 2 Minutes, Every 10 min PRN, 1st line for pain, Starting on Sat05/22/22 at 1027, Phase I, Switch to 2nd line analgesic order if pain is uncontrolled or increasing after 2 doses. Notify Anesthesiologist if total PACU dose reaches 2 mg and pain score 5/10 or more., Indications: PainIndications:Pain Given 05/22/2022 12:00 PM ACCOUNTS PAYABLE PROCESSOR 0. 2 mg Given 05/22/2022 11:42 AM ACCOUNTS PAYABLE PROCESSOR 0.2 mg Given 05/22/2022 11:31 AM ACCOUNTS PAYABLE PROCESSOR 0.2 mg insulin lispro (HumaLOG, ADMELOG) 100 unit/mL injection 0-4 Units 0-4 Units, subcutaneous, Nightly, First dose on Sat05/22/22 at 2100, Blood glucose mg/dL: 199 or less: No insulin 200-249: add 1 unit 250-299: add 2 units 300-349: add 3 units and notify physician for adjustment of insulin orders. 350-399: add 4 units and notify physician for adjustment of insulin orders. Over 400: Notify physician for adjustment of insulin orders. Do NOT hold for NPO Status, Indications: Diabetes MellitusIndications:Diabetes Mellitus Given 05/22/2022 8:59 PM ACCOUNTS PAYABLE PROCESSOR 2 Units Right Upper Arm insulin lispro (HumaLOG, ADMELOG) 100 unit/mL injection 0-5 Units 0-5 Units, subcutaneous, 3 times daily with meals, First dose on Sat05/22/22 at 1800, Blood glucose mg/dL: 149 or less: No insulin 150-199: add 1 unit 200-249: add 2 units 250-299: add 3 units 300-349: add 4 units and notify physician for adjustment of insulin orders. 350-399: add 5 units and notify physician for adjustment of insulin orders. Over 400: Notify physician for adjustment of insulin orders. Do NOT hold for NPO Status, Indications: Diabetes MellitusIndications:Diabetes Mellitus Given 05/23/2022 8:16 AM ACCOUNTS PAYABLE PROCESSOR 1 Units Left Lower Abdomen Given 05/22/2022 5:44 PM ACCOUNTS PAYABLE PROCESSOR 1 Units Ri ght Lower Abdomen insulin lispro (HumaLOG, ADMELOG) 100 unit/mL injection 3 Units 3 Units, subcutaneous, Once, On Sat05/22/22 at 1145, For 1 dose, Phase I, Indications: HyperglycemiaIndications:Hype rglycemia Given 05/22/2022 11:21 AM ACCOUNTS PAYABLE PROCESSOR 3 Units Left Upper Arm Lactated Ringer's (LR) infusion 30 mL/hr, intravenous, Continuous, Starting on Sat05/22/22 at 0630 New Bag 05/22/2022 9:36 AM ACCOUNTS PAYABLE PROCESSOR Rate/Dose Verify 05/22/2022 7:47 AM ACCOUNTS PAYABLE PROCESSOR 30 mL/h r Rate/Dose Change 05/22/2022 7:47 AM ACCOUNTS PAYABLE PROCESSOR 30 mL/h r levothyroxine (SYNTHROID) tablet 75 mcg 75 mcg, oral, Every morning, First dose on Sat05/23/22 at 0900, Administer on an empty stomach, preferably 30 minutes before breakfast. Take 4 hours apart from antacids, iron and calcium products. Separate from tube feeds, if applicable., Indications: hypothyroidismIndications:hypothyroidism Given 05/23/2022 8:16 AM ACCOUNTS PAYABLE PROCESSOR 75 mcg nortriptyline (PAMELOR) capsule 10 mg 10 mg, oral, Nightly, First dose on Sat05/22/22 at 2100, Indications: Postherpetic Neuralgia, and sleepIndications:Postherpetic Neuralgia,and sleep Given 05/22/2022 8:58 PM ACCOUNTS PAYABLE PROCESSOR 10 mg oxyCODONE (ROXICODONE) tablet 5 mg 5 mg, oral, Every 4 hours PRN, 2nd line for pain, Starting on Sat05/22/22 at 1309, May administer 1 hour after 1st line agent for uncontrolled or increasing pain. , Indications: PainIndications:Pain Given 05/23/2022 12:15 PM ACCOUNTS PAYABLE PROCESSOR 5 mg Given 05/23/2022 4:59 AM ACCOUNTS PAYABLE PROCESSOR 5 mg Given 05/22/2022 1:19 PM ACCOUNTS PAYABLE PROCESSOR [address] (PROTONIX) extended release tablet 40 mg 40 mg, oral, Daily, First dose on Sat05/23/22 at 0900, Do not crush, chew, cut, dissolve, open or otherwise manipulate tablet/capsule., Indications: Treatment of Non-Bleeding Gastric DisorderIndications:Treatment of Non-Bleeding Gastric Disorder Given 05/23/2022 8:15 AM ACCOUNTS PAYABLE PROCESSOR 40 mg propranoloL (INDERAL) tablet 40 mg 40 mg, oral, 2 times daily, First dose on Sat05/22/22 at 1345 Given 05/23/2022 4:58 AM ACCOUNTS PAYABLE PROCESSOR 40 mg Given 05/22/2022 4:28 PM ACCOUNTS PAYABLE PROCESSOR 40 mg topiramate (TOPAMAX) tablet 25 mg 25 mg, oral, 3 times daily, First dose on Sat05/22/22 at 1600, Indications: painIndications:pain Given 05/23/2022 8:16 AM ACCOUNTS PAYABLE PROCESSOR 25 mg Given 05/22/2022 8:58 PM ACCOUNTS PAYABLE PROCESSOR 25 mg Given 05/22/2022 4:29 PM ACCOUNTS PAYABLE PROCESSOR 25 mg documented in this encounter Discontinued Medications Medication Sig Discontinue Reason Start Date End Da te LORazepam (ATIVAN) 0.5 mg tablet Take 1 tablet (0.5mg total) by mouth 30 minutes prior to MRI. Error 01/15/2022 05/11/2022 documented as of this encounter Historical Medications * This list may reflect changes made after this encounter. diphenhydrAMINE (BENADRYL) 25 mg capsuleIndication s:allergies Take 1 tablet/capsul e (25 mg total) by mouth as needed added in this encounter Active and Recently Administered Medications Times are shown in ACCOUNTS PAYABLE PROCESSOR. Scheduled Medication Order 05/21/2022 05/22/2022 05/23/2022 acetaminophen (TYLENOL) tablet 1,000 mg (COMPLETED) 1,000 mg, oral, Once, On Sat05/22/22 at 0630, For 1 dose, Pre-Op, Indications: Pre-Emptive Analgesia 0632 (Given - Provider: Saloni Zelaya RN) acetaminophen (TYLENOL) tablet 1,000 mg 1,000 mg, oral, Every 6 hours scheduled, First dose (after last modification) on Sat05/22/22 at 1400, Indications: Pain 1319 (Given - Provider: Lorrie Davey RN)1903 (Given - Provider: Lorrie Davey RN - Comment: Last dose give at 1319) 0000 (Not Given - Provider: Baudilio Nicholson RN - Reason: Patient/family refused)0459 (Given - Provider: Baudilio Nicholson RN)1210 (Not Given - Provider: Elizabeth Morelos RN - Reason: Patient/family refused)1215 (Given - Provider: Elizabeth Morelos RN) amLODIPine (NORVASC) tablet 5 mg 5 mg, oral, Every morning, First dose on Sat05/23/22 at 0900, Indications: hypertension 0816 (Given - Provid er: Elizabeth Morelos RN) doxycycline (VIBRAMYCIN) tablet/capsule 100 mg 100 mg, oral, 2 times daily (for quinolones,etc), First dose on Sat05/23/22 at 0600, Give 2 hrs before or 2 hrs after MVI, antacids, or other products containing sucralfate, magnesium, aluminum, iron, or zinc. May be taken without regard to meals., Indications: Prophylaxis, Medical 458 (Given - Provid er: Baudilio Nicholson RN) DULoxetine DR (CYMBALTA) extended release capsule 60 mg 60 mg, oral, Nightly, First dose on Sat05/22/22 at 2100, Capsule may be opened and contents mixed with applesauce or apple juice ONLY. Do not crush, chew, cut, dissolve, open or otherwise manipulate tablet/capsule., Indications: Neuropathic Pain 2057 (Given - Provider: Baudilio Nicholson RN) fluticasone furoate-vilanteroL (BREO ELLIPTA) 200-25 mcg/dose inhaler 1 puff (CANCELED) 1 puff, inhalation, Daily (respiratory services manager), First dose on Sat05/22/22 at 1400 1400 (Not Given - Provider: Daisha Grimm, PAPER COUNTER - Reason: Other - Comment: patient not seen) 0840 (Given - Provider: Beck Lutz, CARRIE) fluticasone furoate-vilanteroL (BREO ELLIPTA) 200-25 mcg/dose inhaler 1 puff 1 puff, inhalation, Daily, First dose (after last modification) on Sat05/24/22 at 0900, RN to administer. Rinse mouth with water after use. Do not swallow. insulin lispro (HumaLOG, ADMELOG) 100 unit/mL injection 0-4 Units 0-4 Units, subcutaneous, Nightly, First dose on Sat05/22/22 at 2100, Blood glucose mg/dL: 199 or less: No insulin 200-249: add 1 unit 250-299: add 2 units 300-349: add 3 units and notify physician for adjustment of insulin orders. 350-399: add 4 units and notify physician for adjustment of insulin orders. Over 400: Notify physician for adjustment of insulin orders. Do NOT hold for NPO Status, Indications: Diabetes Mellitus 2058 (Given - Provider: Baudilio Nicholson RN) insulin lispro (HumaLOG, ADMELOG) 100 unit/mL injection 0-5 Units 0-5 Units, subcutaneous, 3 times daily with meals, First dose on Sat05/22/22 at 1800, Blood glucose mg/dL: 149 or less: No insulin 150-199: add 1 unit 200-249: add 2 units 250-299: add 3 units 300-349: add 4 units and notify physician for adjustment of insulin orders. 350-399: add 5 units and notify physician for adjustment of insulin orders. Over 400: Notify physician for adjustment of insulin orders. Do NOT hold for NPO Status, Indications: Diabetes Mellitus 1744 (Given - Provider: Lorrie [place] RN - Comment: BG 196) 0816 (Given - Provider: Elizabeth Morelos RN)1200 (Due) insulin lispro (HumaLOG, ADMELOG) 100 unit/mL injection 3 Units (COMPLETED) 3 Units, subcutaneous, Once, On Sat05/22/22 at 1145, For 1 dose, Phase I, Indications: Hyperglycemia 1121 (Given - Provider: Halle Harris RN) levothyroxine (SYNTHROID) tablet 75 mcg 75 mcg, oral, Every morning, First dose on Sat05/23/22 at 0900, Administer on an empty stomach, preferably 30 minutes before breakfast. Take 4 hours apart from antacids, iron and calcium products. Separate from tube feeds, if applicable., Indications: hypothyroidism 0816 (Given - Provid er: Elizabeth Morelos RN) nortriptyline (PAMELOR) capsule 10 mg 10 mg, oral, Nightly, First dose on Sat05/22/22 at 2100, Indications: Postherpetic Neuralgia, and sleep 2057 (Given - Provider: Baudilio Nicholson, LYDIA) pantoprazole DR (PROTONIX) extended release tablet 40 mg 40 mg, oral, Daily, First dose on Sat05/23/22 at 0900, Do not crush, chew, cut, dissolve, open or otherwise manipulate tablet/capsule., Indications: Treatment of Non-Bleeding Gastric Disorder 0815 (Given - Provid er: Elizabeth Morelos RN) propranoloL (INDERAL) tablet 40 mg 40 mg, oral, 2 times daily, First dose on Sat05/22/22 at 1345 1628 (Given - Provider: Lorrie [place] RN) 0458 (Given - Provider: Baudilio Nicholson RN) topiramate (TOPAMAX) tablet 25 mg 25 mg, oral, 3 times daily, First dose on Sat05/22/22 at 1600, Indications: pain 1629 (Given - Provider: Lorrie [place], LYDIA)2058 (Given - Provider: Baudilio Nicholson, LYDIA) 0816 (Given - Provider: Elizabeth Morelos, LYDIA) Continuous Medication Order 05/21/2022 05/22/2022 05/23/2022 Lactated Ringer's (LR) infusion (CANCELED) 30 mL/hr, intravenous, Continuous, Starting on Sat05/22/22 at 0630 0636 (New Bag - Provider: Saloni Zelaya RN)0747 (Rate/Dose Change - Provider: Mariam López CRNA)0747 (Rate/Dose Verify - Provider: Mariam López CRNA)0935 (Paused - Provider: Mariam López CRNA - Comment: Switch to gravity)0936 (New Bag - Provider: Mariam López CRNA)1309 (Due: Stopped - Provider: Shady Ibarra MD) PRN Medication Order 05/21/2022 05/22/2022 05/23/2022 albuterol HFA (PROVENTIL HFA,VENTOLIN HFA,PROAIR HFA) 90 mcg/actuation inhaler 2 puff 2 puff, inhalation, Every 6 hours PRN (respiratory services manager), wheezing, Starting on Sat05/22/22 at 1315 dextrose (D10W) 10% bolus 250 mL(Linked Group 1) 250 mL, intravenous, at 1,000 mL/hr, Administer over 15 Minutes, Every 15 min PRN, blood glucose less than 70 mg/dL and UNABLE to swallow/take PO glucose/juice., Starting on Sat05/22/22 at 1313, After treatment for hypoglycemia, recheck BG followed by treatment every 15 minutes until the BG is greater than 100 mg/dL. Then check BG 1 hour post treatment. If BG is less than 100 mg/dL, repeat Q15 minute BG checks and treatment. Call MD for each episode of hypoglycemia., Indications: hypoglycemic disorder dextrose gel in packet 15 g(Linked Group 1) 15 g, oral, Every 15 min PRN, low blood sugar, blood glucose less than 70 mg/dL, Starting on Sat05/22/22 at 1313, If patient is alert and able to eat/drink, give 15 gm glucose or one juice (4 fluid ounces) NOT ORANGE JUICE. After treatment for hypoglycemia, recheck BG followed by treatment every 15 minutes until the BG is greater than 100 mg/dL. Then check BG 1 hour post-treatment. If BG is less than 100 mg/dL, repeat Q15 minute BG checks and treatment. Call MD for each episode of hypoglycemia., Indications: hypoglycemic disorder glucagon injection 1 mg 1 mg, intramuscular, Every 30 min PRN, low blood sugar, blood glucose less than 70 mg/dL AND no IV access AND unable to take PO glucose/juice., Starting on Sat05/22/22 at 1313, After Glucagon is administered, position patient on side if possible to avoid aspiration. Obtain IV access. Follow glucagon treatment with glucose treatment or IV dextrose. After treatment for hypoglycemia, recheck BG followed by treatment every 15 minutes until the BG is greater than 100 mg/dL. Then check BG 1 hour post treatment. If BG is less than 100 mg/dL, repeat Q15 minute BG checks and treatment. Call MD for each episode of hypoglycemia. Reconstitute 1 mg vial with 1 mL SWFI. Use immediately following reconstitution. HYDROmorphone (DILAUDID) injection 0.2 mg (CANCELED) 0.2 mg, intravenous, Administer over 2 Minutes, Every 10 min PRN, 1st line for pain, Starting on Sat05/22/22 at 1027, Phase I, Switch to 2nd line analgesic order if pain is uncontrolled or increasing after 2 doses. Notify Anesthesiologist if total PACU dose reaches 2 mg and pain score 5/10 or more., Indications: Pain 1131 (Given - Provider: Halle Harris RN)1142 (Given - Provider: Halle Harris, RN)1200 (Given - Provider: Halle Harris, RN) isosulfan blue (LYMPHAZURIN) 1 % injection (CANCELED) As needed, Starting on Sat05/22/22 at 0830, Intra-Op 0830 (Given - Provider: Kianna Bunch MD PhD - Comment: given to back table) oxyCODONE (ROXICODONE) tablet 5 mg 5 mg, oral, Every 4 hours PRN, 2nd line for pain, Starting on Sat05/22/22 at 1309, May administer 1 hour after 1st line agent for uncontrolled or increasing pain. , Indications: Pain 1319 (Given - Provider: Lorrie [place] RN - Comment: Per Chely Turner NP okay to give this now due to patient's pain rating.)1742 (Not Given - Provider: Lorrie [place] RN - Reason: Patient/family refused - Comment: No longer needed per patient.) 0459 (Given - Provider: Baudilio Nicholson RN)1215 (Given - Provider: Elizabeth Morelos RN) sodium chloride 0.9% irrigation (CANCELED) As needed, Starting on Sat05/22/22 at 0830, Intra-Op 0830 (Given - Provider: Kianna Bunch MD PhD - Comment: given to back table) Linked Groups Order Group 1: dextrose gel in packet 15 gJump to med 15 g, oral, Every 15 min PRN, low blood sugar, blood glucose less than 70 mg/dL, Starting on Sat05/22/22 at 1313, If patient is alert and able to eat/drink, give 15 gm glucose or one juice (4 fluid ounces) NOT ORANGE JUICE. After treatment for hypoglycemia, recheck BG followed by treatment every 15 minutes until the BG is greater than 100 mg/dL. Then check BG 1 hour post-treatment. If BG is less than 100 mg/dL, repeat Q15 minute BG checks and treatment. Call MD for each episode of hypoglycemia., Indications: hypoglycemic disorder Or dextrose (D10W) 10% bolus 250 mLJump to med 250 mL, intravenous, at 1,000 mL/hr, Administer over 15 Minutes, Every 15 min PRN, blood glucose less than 70 mg/dL and UNABLE to swallow/take PO glucose/juice., Starting on Sat05/22/22 at 1313, After treatment for hypoglycemia, recheck BG followed by treatment every 15 minutes until the BG is greater than 100 mg/dL. Then check BG 1 hour post treatment. If BG is less than 100 mg/dL, repeat Q15 minute BG checks and treatment. Call MD for each episode of hypoglycemia., Indications: hypoglycemic disorder documented in this encounter Orders Medications Ordered That [place] ht Not Have Been Administered Count Last Ordered Date First Ordered Date fluticasone furoate-vilanter oL (BREO ELLIPTA) 200-25 mcg/dose inhaler 1 puff 1 05/23/2022 acetaminophen (TYLENOL) tablet 650 mg 1 albuterol HFA (PROVENTIL HFA ,VENTOLIN HFA,PROAIR HFA) 90 mcg/actuation inhaler 2 puff 2 05/22/2022 Carrier Fluids for Secondary Infusion - 0.9% Sodium Chloride 1 05/22/2022 dextrose (D10W) 10% bolus 250 mL 1 05/22/19 dextrose gel in packet 15 g 1 05/22/2022 enoxaparin (LOVENOX) syringe 40 mg 1 2022 glucagon injection 1 mg 1 05/22/2022 HYDROmorphone (DILAUDID) injection 0.4 mg 1 05/22/2022 isosulfan blue (LYMPHAZURIN) 1 % injection 1 05/22/2022 lidocaine PF (XYLOCAINE) 10 mg/mL (1 %) preservative free injection 2-10 mg 1 05/22/2022 naloxone (NARCAN) 0.4 mg/mL injection 0.04-0.4 mg 1 05/22/2022 ondansetron (ZOFRAN) injection 4 mg 1 05/22 oxyCODONE (ROXICODONE) tablet 5 mg 1 2022 prochlorperazine (COMPAZINE) injection 5 mg 1 05/22/2022 sodium chloride 0.9% flush 0.5-20 mL 3 05/06 sodium chloride 0.9% irrigation 1 3 Lab Orders Without Results Count Last Ordered D ate First Ordered Date POCT GLUCOSE DEVICE 2 05/23/2022 05/22/19 Diet Count Last Ordered Date First Orde red Date ADULT DISCHARGE DIET 1 05/23/2022 Nursing Count Last Ordered Date First Orde red Date DISCHARGE ACTIVITY 4 05/23/2022 DISCHARGE CALL PROVIDER 6 05/23/2022 DISCHARGE DRESSING 7 05/23/2022 Admission Count Last Ordered Date First Orde red Date INITIATE OUTPATIENT IN A BED 1 05/22/2022 Transfer Count Last Ordered Date First Orde red Date TRANSFER PATIENT TO NEW UNIT 1 05/22/2022 Discharge Count Last Ordered Date First Orde red Date DISCHARGE PATIENT 1 05/23/2022 documented in this encounter Care Teams Sign Shop Supervisor Relationship Specialty Start Date End Date Dat Benito DO [address] [place] [address] PCP - General Internal Medicine 09/28/21 Aft, Kianna Machado MD PhD [address] [place] [address] Surgeon Surgical Oncology 11/22/17 Santiago Gilbert MD [address] [place] [address] Veterinary Pharmacologist Gastroenterology 11/22/17 Abbi Ventura MD [address] [facility] [address] [address] [place] [address] Medical Oncologist/Java [email or web address] Architect Medical Oncology 12/03/18 Montse Thompson MD [address] [facility] [place] [address] Consulting Physician Gynecologic Oncology 12/03/18 Lela Hardy MD PhD [address] [facility] [place] [address] Radiation Oncologist Radiation Oncology 12/23/18 Trena Obando MD [address] [place] [address] Consulting Physician Neurology 09/18/21 documented as of this encounter
--- OUTSIDE RECORDS SUMMARY | 2024-04-24 13:37 | XMS_ITS | Encounter Summary ---
Author Organization [facility] Address [address] [place] [address] Phone Care Team Providers Care Certified Alcohol Counselor Name Role Phone Aft, Kianna Machado MD PhD Unavailable [phone] Santiago Gilbert MD Unavailable [phone] Abbi Ventura MD Unavailable Montse Thompson MD Unavailable [phone] Lela Hardy MD PhD Unavailable [phone] Trena Obando MD Unavailable [phone] Dat Benito DO Primary Care Provider [phone] Encounter Details Date Type Department Care Team (Late st Contact Info) Description 06/25/[address] [id number] Uriel Corral Social History Tobacco Use Types [...] on file 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 Uriel Corral RN ENTARY EDUCATION TEACHER ENTARY EDUCATION TEACHER documented in this encounter Plan of Treatment Not on file documented as of this encounter Visit Diagnoses Not on filedocumented in this encounter Care Teams Certified Alcohol Counselor Relationship Specialty Start Date End Date Dat Benito DO [address] [place] [address] PCP - General Internal Medicine 09/28/21 Aft, Kianna Machado MD PhD [address] [place] [address] Surgeon Surgical Oncology 11/22/17 Santiago [place] MD [address] [place] [address] Fiscal Assistant Gastroenterology 11/22/17 Abbi Ventura MD [address] [facility] [address] [place] [address] Medical Oncologist/Switchboard Wirer Medical Oncology 12/03/18 Montse Thompson MD [address] [facility] [address] [place] [address] Consulting Physician Gynecologic Oncology 12/03/18 Lela Hardy MD PhD [address] [facility] [address] [place] [address] Radiation Oncologist Radiation Oncology 12/23/18 Trena Obando MD [address] [place], [place] [id number] Consulting Physician Neurology 09/18/21 documented as of this encounter
--- OUTSIDE RECORDS SUMMARY | 2024-04-24 13:37 | XMS_ITS | Encounter Summary ---
Author Organization [facility] Address [address] [place] [address] Phone Care Team Providers Care Credit And Collections Representative Name Role Phone Aft, Kianna Machado MD PhD Unavailable [phone] Santiago Gilbert MD Unavailable [phone] Abbi Ventura MD Unavailable Montse Thompson MD Unavailable [phone] Lela Hardy MD PhD Unavailable [phone] Trena Obando MD Unavailable [phone] Dat Benito DO Primary Care Provider [phone] Reason for Referral * MRI/CAT/PET Scan (Routine) - Closed Specialty Diagnoses / Procedures Referred By Contac t Referred To Contact Radiology Diagnoses Malignant neoplasm of upper-inner quadrant of right female breast, unspecified estrogen receptor status (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 Results from different manufacturers or methods may not be comparable. Serial testing should be performed using the same method. Blood 07/04/2022 12:4 1 PM MANAGEMENT LECTURER 07/04/2022 1:52 PM MANAGEMENT LECTURER us Abbi Ventura MD LAB BLOOD ORDERABLES Final [facility]ul t [facility] [place] [address] * CT Chest Abdomen Pelvis W Contrast (07/03/2022 1:46 PM MANAGEMENT LECTURER) Anatomical Region Laterality Modality Body N/A Computed Tomogra phy 07/03/2022 2:01 PM MANAGEMENT LECTURER Impressions 07/03/2022 2:04 PM MANAGEMENT LECTURER 1. No evidence of metastatic or recurrent [...] it. Electronically signed by: Willie Bullock M.D. Narrative 07/03/2022 2:04 PM MANAGEMENT LECTURER EXAMINATION: ??Computed tomography of the chest, abdomen and pelvis with intravenous contrast HISTORY: 66-year-old woman with breast cancer status post bilateral mastectomy in 2021. ??Patient also has a history of colon cancer status post hemicolectomy in 2018 TECHNIQUE: ??Transaxial computed tomographic images of the chest, abdomen and pelvis were obtained with intravenous contrast according to the standard protocol after the uneventful administration of 88 mL Opti-Ray 350 intravenous contrast. COMPARISON: Chest abdomen pelvis CT 01/27/2022, abdomen MRI 01/27/2022 FINDINGS: ?? Chest: No suspicious pulmonary nodules. ??Interval resolution of previous left upper lobe groundglass nodule. Heart size is normal. ??No pericardial effusion. ??No axillary, supraclavicular or mediastinal lymphadenopathy. Changes of interval bilateral mastectomy with a large fluid collection in the left mastectomy site measuring 17.4 cm x 5.3 cm. Abdomen/Pelvis: Diffuse hepatic steatosis. There is hypoattenuation in segment 4 corresponding to the location of focal fat on a prior abdomen MRI. Cholelithiasis without cholecystitis. Adrenal glands are normal. ??The left kidney is mildly atrophic. ??No hydronephrosis in either kidney. ??The spleen is normal. ??The pancreas is normal. Postsurgical changes of left hemicolectomy. ??There is no bowel obstruction. No lymphadenopathy in the abdomen or pelvis. ??Status post hysterectomy. No aggressive osseous lesion. Procedure Note Willie Bullock MD - 07/03/2022 EXAMINATION: Computed tomography of the chest, abdomen [...] Status post hysterectomy. No aggressive osseous lesion. IMPRESSION: 1. No evidence of metastatic or [...] it. Electronically signed by: Willie Bullock M.D. 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) Malignant neoplasm of descending colon documented in this encounter Care Teams Credit And Collections Representative Relationship Specialty Start Date End Date Dat Benito DO [address] [place] [address] PCP - General Internal Medicine 09/28/21 Aft, Kianna Machado MD PhD [address] [place] [address] Surgeon Surgical Oncology 11/22/17 Santiago [place] MD [address] [place] [address] Sql Ssrs Ssis Developer Gastroenterology 11/22/17 Abbi Ventura MD [address] [facility] [address] [place] [address] Medical Oncologist/Treatment Counselor Medical Oncology 12/03/18 Montse Thompson MD [address] [facility] [address] [place] [address] Consulting Physician Gynecologic Oncology 12/03/18 Lela Hardy MD PhD [address] [facility] [address] [place] [address] Radiation Oncologist Radiation Oncology 12/23/18 Trena Obando MD [address] [place] [address] Consulting Physician Neurology 09/18/21 documented as of this encounter
--- OUTSIDE RECORDS SUMMARY | 2024-04-24 13:37 | XMS_ITS | Encounter Summary ---
Author Organization [facility] Address [address] [place] [address] Phone Care Team Providers Care Funding Specialist Name Role Phone Aft, Kianna Machado MD PhD Unavailable [phone] Santiago Gilbert MD Unavailable [phone] Abbi Ventura MD Unavailable Montse Thompson MD Unavailable [phone] Lela Hardy MD PhD Unavailable Trena Obando MD Unavailable [phone] Dat Benito DO Primary Care Provider [phone] Encounter Details Date Type Department Care Team (Late st Contact Info) Description 07/04/2022 12:30 PM GLUE SPREADER Office Visit [facility] Oncology [address] [place] [address] Abbi Ventura MD 10 [facility] [address] [place], [place] [id number] Malignant neoplasm of upper-inner quadrant of left [...] on file 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 GLUE SPREADER Gender Identity Not on file Sexual Orientation Not on file documented as of this encounter Last Filed Vital Signs Vital Sign Reading Time Taken Comments Blood Pressure 127/71 07/04/2022 12:44 PM GLUE SPREADER Pulse 84 07/04/2022 12:44 PM GLUE SPREADER Temperature 36.5 ??C (97.7 ??F) 07/04/2022 1 2:44 PM GLUE SPREADER Respiratory Rate 18 07/04/2022 12:4 4 PM GLUE SPREADER Oxygen Saturation 95% 07/04/2022 12: 44 PM GLUE SPREADER Inhaled Oxygen Concentration - - Weight 110.9 kg (244 lb 9.6 oz) 023 12:44 PM GLUE SPREADER Height - - Body Mass Index 36.12 06/04/2022 3:03 PM GLUE SPREADER documented in this encounter Progress Notes * Abbi Ventura MD - 07/04/2022 12:30 PM CST The Patient Identifying Data: Aleah Gerber is [...] breast invasive ductal carcinoma - ER negative SD negative Her 2 negative diagnosed 03/2022 TREATMENT [...] ~ 1.4 cm, Grade 3, ER 0, SD 0, HER-2 IHC 0. Partial mastectomy and [...] 04/13/22 showed invasive ductal carcinoma. ER negative SD negative Her 2 negative Bilateral mastectomy 05/22/22 [...] elected to observe. Interval History C/o right upper arm feeling like a cord when she lifts it. The discomfort starts medial right upperarm and then crosses over to the lateral aspect closer to antecubital fossa. Right arm feels swollen but normally left arm is larger than right. She is right handed. She looked at her chest wall in the mirror and is coping with loss of her breasts. She is always concerned about having another cancer and is finding it hard to cope with that uncertainty. Has appointment scheduled with psychology. Continues to have mild peripheral neuropathy. Her different areas of body aches have resolved. Review of Systems Review of systems positive for symptoms as per interval history. All other review of systems negative. Objective Vitals: Vitals BP 127/71 (BP Location: Right arm) Pulse 84 Temp 36.5 ??C (97.7 ??F) (Temporal) Resp 18 Wt 110.9 kg (244 lb 9.6 oz) LMP (LMP Unknown) SpO2 95% BMI 36.12 kg/m?? PERFORMANCE STATUS: ECOG 1 SKIN: Normal [...] There is no cyanosis, clubbing nor edema. Arm circumference 15 cm above olecranon process Right =37.5 cm, Left= 39 cm NEUROLOGICAL: AAOx3. Power is 5/5 in all extremities. Detailed sensory exam not done. LYMPH NODES: The patient has no palpable cervical, supraclavicular, submandibular adenopathy. BREAST: s/p bilateral mastectomy.Healing well Lab/Radiology/Diagnostic Review: Hematology Lab History Some values may be hidden. Unless noted otherwise, only the newest values recorded on each date aredisplayed. Labs - Hematology Latest Ref Range 09/21/21 02/01/22 07/04/22 WBC 3.8 - 9.9 K/cumm 7.3 7.3 7.9 Total Hb, POC 11.9 - 15.5 g/dL 12.0 12.3 11.8 (A) Hct 35.6 - 45.5 % 37.4 38.3 37.3 Plt 150 - 400 K/cumm 200 180 199 Neutrophil abs 1.7 - 6.5 K/cumm 5.2 4.7 5.4 Lymphocytes, abs 0.8 - 3.3 K/cumm 1.2 1.8 1.5 (A) Abnormal value Comments are available for some flowsheets but are not being displayed. Lab Results Component Value Date SODIUM 143 07/04/2022 POTASSIUM 4.8 07/04/2022 CO2 28 07/04/2022 BUNSER 16 07/04/2022 GLUCOSE 158 07/04/2022 CREATININE 1.32 (H) 07/04/2022 CALCIUM 9.6 07/04/2022 CHLORIDE 109 07/04/2022 ALBUMIN 4.3 07/04/2022 AST 16 07/04/2022 ALT 13 07/04/2022 ALKPHOS 98 07/04/2022 BILITOT 0.3 07/04/2022 PROT 7.0 07/04/2022 ANIONGAP 6 07/04/2022 Tumor Marker History Some values may be hidden. Unless noted otherwise, only the newest values recorded on each date aredisplayed. Tumor Markers Latest Ref Range 09/21/21 02/01/22 CEA <=5.0 ng/mL 1.8 2.1 CA 125 ag 0.0 - 38.0 units/mL 9.7 9.6 Comments are available for some flowsheets but are not being displayed. CT Chest Abdomen Pelvis W Contrast Narrative: [...] Recent labs, radiology and pathology reviewed in [facility] ASSESSMENT: Stage I [id number] right breast cancer -ER negative SD negative Her 2 negative- Mammaprint could not be done due to insufficient tumor. They tried both biopsy and surgery sample. D/w patient about adjuvant CMF and she wants to hold off on it. I am agreeable with observation given small size of tumor. Right arm discomfort likely due to surgery in right axilla - hopefully it will improve with time. 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 Her sister had pancreatic cancer. I will refer patient to Dr. Fofana for pancreatic cancer screening. Depression/anxiety: f/u Psychology and PCP CIPN- at grade 1 level. Ground glass opacity on CT chest - likely inflammation and it has resolved PLAN: Continued observation ROV in 3 months with CEA and Ca 125 to screen for peritoneal carcinomatosis Refer to Dr. Fofana above F/u Psychology as above F/u Dr. Gilbert, her local turn out worker, regarding screening colonoscopy Repeat scans in 6 months Aleah Gerber will follow up as directed above, she was encouraged to call in the interim with questions or concerns. We will continue to monitor and review for side effects from treatment. Abbi Ventura MD senior net programmer Division of Oncology Section of Medical Oncology [facility] Licensed Mental Health Counselor completed by using [employer] Fluency Direct speaking software, therefore, transcriptionvariances may occur. SPREADER documented in this encounter Plan of Treatment Not on file documented as of this encounter Results * CA 125 (10/25/2022 3:04 PM CDT) CA 125 ag 8.0 0.0 - 38.1 units/mL [facility] Comment: Interpretive Data The Bo CA 125 assay procedure was used. Results from different manufacturers or methods may not be comparable. Serial testing should be performed using the same method. Blood 10/25/2022 3:04 PM CDT 10/25/2022 6:29 PM CDT us Abbi Ventura MD LAB BLOOD ORDERABLES Final Resul t [facility] Department [place] [address] * (ABNORMAL) Comprehensive metabolic panel (10/25/2022 3:04 PM CDT) Sodium 139 135 - 145 mmol/L [facility] Comment:Testing performed by : [facility], [address] [place] [address] Potassium, pl 4.1 3.3 - 4.9 mmol/L [facility] Chloride 108 97 - 110 mmol/L [facility] CO2 24 22 - 32 mmol/L [facility] Anion gap 7 2 - 15 mmol/L [facility] BUN 17 6 - 25 mg/dL [facility] Creatinine 1.47(H) 0.60 - 1.10 mg/dL [facility] Glucose 119 70 - 199 mg/dL [facility] Comment: Interpretive Data Fasting glucose >/= [...] 2022. Calcium 9.4 8.5 - 10.3 mg/dL [facility] Bilirubin, total 0.4 0.1 - 1.2 mg/dL [facility] Protein, pl 7.0 6.5 - 8.5 g/dL [facility] Albumin 4.3 3.5 - 5.0 g/dL [facility] Alk phos 102 40 - 130 Units/L [facility] ALT 12 7 - 45 Units/L [facility] AST 18 10 - 45 Units/L [facility] Blood 10/25/2022 3:04 PM CDT 10/25/2022 3:04 PM CDT us Abbi Ventura MD LAB BLOOD ORDERABLES Final Resul t [facility] Department [place] [address] * CEA (10/25/2022 3:04 PM CDT) CEA 1.0 <=5.0 ng/mL [facility] Comment: Interpretive Data: Reference Range: Non-Smokers: [...] LAB BLOOD ORDERABLES Final Resul t [facility] Department [place] [address] * CBC with auto differential (10/25/2022 3:04 PM CDT) [facility] Signature WBC 9.2 3.8 - 9.9 K/cumm [facility] Comment:Testing performed by : [facility], [address] [place] [address] Hgb 12.5 11.9 - 15.5 g/dL [facility] Comment:Testing performed by : [address] [address] Hct 38.7 35.6 - 45.5 % [facility] Comment:Testing performed by : [address] [address] Plt 174 150 - 400 K/cumm [facility] Comment:Testing performed by : [address] [address] MPV 9.9 9.1 - 12.3 fL [facility] RBC 4.32 3.90 - 5.20 M/cumm [facility] MCV 89.6 81.3 - 96.4 fL [facility] MCH 28.9 27.1 - 33.3 pg [facility] MCHC 32.3 32.3 - 35.7 g/dL [facility] RDW CV 13.6 11.1 - 14.9 % [facility] RDW SD 44.6 35.7 - 48.1 fL [facility] NRBC abs 0.00 0.00 - 0.01 K/cumm [facility] Blood 10/25/2022 3:04 PM CDT 10/25/2022 3:04 PM CDT Abbi Ventura MD LAB BLOOD ORDERABLES Final Resul t Performing Organization Address [facility]/ZIP Co de Phone Number [facility] Department [place] [address] documented in this encounter Visit Diagnoses Diagnosis Malignant 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, estrogen receptor negative (HCC)- Primary documented in this encounter Orders Appointment Requests Count Last Ordered Date Fi rst Ordered Date ONCBCN CLINIC APPOINTMENT REQUEST 2 023 07/04/2022 ONCBCN LAB APPOINTMENT 1 10/25/2022 documented in this encounter Care Teams Funding Specialist Relationship Specialty Start Date End Date Dat Benito DO [address] [place] [address] PCP - General Internal Medicine 09/28/21 Aft, Kianna Machado MD PhD [address] [place] [address] Surgeon Surgical Oncology 11/22/17 Santiago Gilbert MD [address] [place] [address] Analysis Manager Gastroenterology 11/22/17 Abbi Ventura MD [address] [place] [address] [address] [place] [address] Medical Oncologist/Natural Gas Inspector Medical Oncology 12/03/18 Montse Thompson MD [address] [place] [address] [address] [place] [address] Consulting Physician Gynecologic Oncology 12/03/18 Lela Hardy MD PhD [address] [place] [address] [address] [place] [address] Radiation Oncologist Radiation Oncology 12/23/18 Trena Obando MD [address] [place] [address] Consulting Physician Neurology 09/18/21 documented as of this encounter
--- OUTSIDE RECORDS SUMMARY | 2024-04-24 13:37 | XMS_ITS | Encounter Summary ---
Author Organization [facility] Address [address] [place] [address] Phone Care Team Providers Care Eggs Inspector Name Role Phone Aft, Kianna Machado MD PhD Unavailable [phone] Santiago Gilbert MD Unavailable [phone] Dmitry Sanderson MD Unavailable [phone] Abbi Ventura MD Unavailable Montse Thompson MD Unavailable [phone] Lela Hardy MD PhD Unavailable [phone] Trena Obando MD Unavailable [phone] Dat Benito DO Primary Care Provider [phone] Encounter Details Date Type Department Care Team (Late st Contact Info) Description 05/02/2022 Orders Only [facility] On[facility] [address] [place] [address] Uriel Corral Invasive ductal carcinoma of breast, female, right (HCC) (Primary Dx) Social History Tobacco Use [...] on file 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 Gender Identity Not on file Sexual Orientation Not on file documented as of this encounter Plan of Treatment Not on file documented as of this encounter Visit Diagnoses Diagnosis Invasive ductal carcinoma of breast, female, right (HCC)- Primary documented in this encounter Care Teams Eggs Inspector Relationship Specialty Start Date End Date Dat Benito DO [address] [place] [address] PCP - General Internal Medicine 09/28/21 AftKianna MD PhD [address] [place] [address] Surgeon Surgical Oncology 11/22/17 Santiago Gilbert MD [address] [place] [address] Sight Effects Specialist Gastroenterology 11/22/17 Dmitry Sanderson MD [address] [place] [address] Referring Physician Colon and Rectal Surgery 12/03/1805/06 Abbi Ventura MD [address] [place] [address] [address] [place] [address] Medical Oncologist/Retail Salesman Medical Oncology 12/03/18 Montse Thompson [facility] [place] [address] Consulting Physician Gynecologic Oncology 12/03/18 Lela Hardy MD PhD [address] [facility] [address] [place] [address] Radiation Oncologist Radiation Oncology 12/23/18 Trena Obando MD [address] [place] [address] Consulting Physician Neurology 09/18/21 documented as of this encounter
--- OUTSIDE RECORDS SUMMARY | 2024-04-24 13:37 | XMS_ITS | Encounter Summary ---
Author Organization [facility] Address [address] [place] [address] Phone Care Team Providers Care Admitting Supervisor Name Role Phone Aft, Kianna Machado MD PhD Unavailable [phone] Santiago Gilbert MD Unavailable [phone] Abbi Ventura MD Unavailable Montse Thompson MD Unavailable [phone] Lela Hardy MD PhD Unavailable [phone] Trena Obando MD Unavailable [phone] Dat Benito DO Primary Care Provider [phone] Encounter Details Date Type Department Care Team (Latest Contact Info) Description 07/02/2022 Orders Only [facility] Scanning, Provider [...] on file 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 Gender Identity Not on file Sexual Orientation Not on file documented as of this encounter Plan of Treatment Not on file documented as of this encounter Procedures Procedure Name Priority Date/Time Associated Diagnosis Comments SCAN - LABS 07/02/2022 documented in this encounter Results * SCAN - LABS (07/02/2022) Provider Scanning Final Result documented in this encounter Visit Diagnoses Not on filedocumented in this encounter Care Teams Admitting Supervisor Relationship Specialty Start Date End Date Dat Benito DO [address] [place] [address] PCP - General Internal Medicine 09/28/21 Kianna Bunch MD PhD [address] [place] [address] Surgeon Surgical Oncology 11/22/17 Santiago Gilbert MD [address] [place] [address] Lasting Room Machine Operator Gastroenterology 11/22/17 Abbi Ventura MD [address] [place] [address] [address] [place] [address] Medical Oncologist/Boot Liner Maker Medical Oncology 12/03/18 Montse Thompson MD [address] [place] [address] Consulting Physician Gynecologic Oncology 12/03/18 Lela Hardy MD PhD [facility] [address] [place] [address] Radiation Oncologist Radiation Oncology 12/23/18 Trena Obando MD [address] [place] [address] Consulting Physician Neurology 09/18/21 documented as of this encounter
--- OUTSIDE RECORDS SUMMARY | 2024-04-24 13:37 | XMS_ITS | Encounter Summary ---
Author Organization [facility] Address [address] [place] [address] Phone Care Team Providers Care Aircraft Dispatcher Name Role Phone Aft, Kianna Machado MD PhD Unavailable [phone] Santiago Gilbert MD Unavailable [phone] Dmitry Sanderson MD Unavailable [phone] Abbi Ventura MD Unavailable Montse Thompson MD Unavailable Lela Hardy MD PhD Unavailable [phone] Trena Obando MD Unavailable [phone] Dat Benito DO Primary Care Provider [phone] Encounter Details Date Type Department Care Team (Late st Contact Info) Description 05/15/2022 Orders Only [facility] [address] [place] [address] Patricia Anderson, LYDIA Social History Tobacco Use Types Packs/Day Years Used Date Smoking Tobacco: Former Cigarettes 1 42 1 973 - 2015 Smokeless Tobacco: Never Alcohol Use Standard Drinks/Week Comments Not Currently 0 (1 standard drink = 0.6 oz pur e alcohol) socially AUDIT-C Answer Date Recorded Q1: How often do you have a drink containing alcohol? Never 05/11/2022 Q2: How many drinks containi ng alcohol do you have on a typical day when you are drinking? Patient does not drink Q3: How often do you have si x or more drinks on one occasion? 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 Gender Identity Not on file Sexual Orientation Not on file documented as of this encounter Plan of Treatment Not on file documented as of this encounter Visit Diagnoses Not on filedocumented in this encounter Care Teams Aircraft Dispatcher Relationship Specialty Start Date End Date Dat Benito DO [address] [place] [address] PCP - General Internal Medicine 09/28/21 Aft, Kianna Machado MD PhD [address] [place] [address] Surgeon Surgical Oncology 11/22/17 Santiago Gilbert MD [address] [place] [address] Field Crop Farmer Gastroenterology 11/22/17 Dmitry Sanderson MD [address] [place] [address] Referring Physician Colon and Rectal Surgery 12/03/1805/06 Abbi Ventura MD [address] [place] [address] [address] [place] [address] Medical Oncologist/Stopper Maker Medical Oncology 12/03/18 Montse Thompson MD [address] [place] [address] Consulting Physician Gynecologic Oncology 12/03/18 Lela Hardy MD PhD [address] [facility] [address] [place] [address] Radiation Oncologist Radiation Oncology 12/23/18 Trena Obando MD [address] [place] [address] Consulting Physician Neurology 09/18/21 documented as of this encounter
--- OUTSIDE RECORDS SUMMARY | 2024-04-24 13:37 | XMS_ITS | Encounter Summary ---
Author Organization [facility] Healthcare Address [address] [place] [address] Care Team Providers Care Nurse Emergency Room Name Role Phone Aft, Kianna Machado MD PhD Unavailable [phone] Santiago Gilbert MD Unavailable [phone] Abbi Ventura MD Unavailable Montse Thompson MD Unavailable [phone] Lela Hardy MD PhD Unavailable [phone] Trena Obando MD Unavailable [phone] Dat Benito DO Primary Care Provider [phone] Reason for Visit * Auth/Cert Specialty Diagnoses / Procedures Referred By Contac t Referred To Contact Diagnoses Malignant 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, 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, 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) (HCC) [C50.212, Z17.1] Procedures AZ BX/EXC LYMPH NODE OPEN SUPERFICIAL AZ MASTECTOMY SIMPLE COMPLETE AZ INTRAOP SENTINEL LYMPH NODE ID W/DYE INJECTION MASTECTOMY BILATERAL BIOPSY SENTINEL LYMPH NODE with magtrace Referral ID Status Reason Start Date Expiration Date Visits Re quested Visits Authorized [id number] 1 1 Encounter Details Date Type Department Care Team (Late st Contact Info) Description 05/22/2022 7:30 AM COLD MEAT CHEF - 05/22/2022 10:00 AM COLD MEAT CHEF Surgery [facility] [address] [place] [id number] Kianna Bunch MD PhD [address] [place] [address] MASTECTOMY BILATERAL Surgery Details Date/Time Status Location OR Service Patient Class Case Cl ass Case Type Trauma Case? 05/22/2022 7:30 AM Posted [facility] OR POD 4 A Oncology Outpatient in Bed Elective Panel 1 Procedure LRB Anes Op Region Wound Class Comments MASTECTOMY BILATERAL Bilateral General Breast Class I - Clean BIOPSY SENTINEL LYMPH NODE w ith magtrace Right General Axilla Class I - Clean Surgeon Surgeon Role Service Panel Kianna Bunch MD PhD Primary Oncology 1 Shady Ritchie MD [facility]ident [facility] Special Needs Senitmag needed day of surgery documented in this encounter Social History Tobacco Use Types Packs/Day Years [...] on file 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 COLD MEAT CHEF Gender Identity Not on file Sexual Orientation Not on file documented as of this encounter Last Filed Vital Signs Vital Sign Reading Time Taken Comments Blood Pressure 148/64 05/22/2022 6:18 AM COLD MEAT CHEF Pulse 64 05/22/2022 6:18 AM COLD MEAT CHEF Temperature 36.1 ??C (97 ??F) 05/22/2022 6:18 AM COLD MEAT CHEF Respiratory Rate 22 05/22/2022 6:18 AM COLD MEAT CHEF Oxygen Saturation 97% 05/22/2022 6:18 AM COLD MEAT CHEF Inhaled Oxygen Concentration - - Weight 108.9 kg (240 lb) 05/11/2022 9:55 AM COLD MEAT CHEF Height 175.3 cm (5' 9 ) 05/11/2022 9:55 AM COLD MEAT CHEF Body Mass Index 35.44 05/22/2022 1:13 PM COLD MEAT CHEF documented in this encounter Discharge Summaries * Chely Turner, FEDERAL APPELLATE CLERK - 05/23/2022 10:00 AM CST Inpatient Discharge Summary BRIEF OVERVIEW Admitting Provider: Kianna Bunch MD PhD Discharge Provider: No att. providers found Primary Care Physician at Discharge: Dat Benito DO [phone] Admission Date: 05/22/2022 Discharge Date: 05/23/2022 Primary [...] mastectomy, right sentinel lymph node biopsy by Kianna Bunch MD PhD. For full operative details, please [...] 06/13/2022 12:30 PM Abbi Ventura MD ONC [place] [facility] Oncology 08/16/2022 11:30 AM [facility] SCCT1 [facility] SC CT [facility] IMG 08/16/2022 1:00 PM LAB SC ONC ONC LAB [place] [facility] ONC LAB 08/16/2022 1:30 PM Abbi Ventura MD ONC [place] [facility]ENDES Oncology 09/24/2022 2:00 PM Montse Thompson MD ONC [facility] 13C OB Cosigned by Kianna Bunch MD PhD at 05/24/2022 7:07 AM COLD MEAT CHEF MEAT CHEF MEAT CHEF documented in this encounter Medications at Time [...] within 12 hours or as directed by MD. 60 patch 05/23/2022 3 oxyCODONE (ROXICODONE) 5 [...] discharge needs arise, please contact the covering caser shoe parts. MEAT CHEF * Sherry Mireles RN - 05/23/2022 10:29 AM CST CM Initial Assessment Interview Note Information Obtained From: Patient (05/23/22 1028) Admission Source: from home Impression: 66 year old sp bilateral mastectomy Plan Includes: return home with 24 hour care per spouse and son, will review ladonna care prior to dc, no need for hh or dme Primary Source of Transportation: Does the patient need discharge transport arranged?: No (05/23/22 1028) Health Insurance Coverage: Mismi Prescription Coverage: yes Pharmacy: [id number] [place], [place] - [address] [facility] [address] [facility] [address] Primary Care Provider: Dat Benito DO Prior to Admission: Primary Caregiver: Self Support System: Children Support system contact info (name, phone, availablity): amanda Werner [phone] Home Care Services: No Durable Medical Equipment: [...] Collaboration with patient, MD, direct care nurse, Cloth Washer, and other members of the health care team to assure needed interventions completed. 2. Return patient to optimal level of self-care post discharge. 3. Document Photographer will follow for Discharge Planning - interventions [...] with the aftercare plan. Sherry Mireles RN MEAT CHEF * Aracelis Murdock, OT - 05/23/2022 8:35 AM CST Occupational [...] baseline. 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 Will perform all ADLs with IND using AE/adaptive device PRN. For questions, please review the treatment team and contact the occupational therapist currently assigned to this patient. If an occupational therapist is not assigned to this patient, please call [phone]. MEAT CHEF * Cem Rae MD - 05/23/2022 6:38 AM CST General Surgery Daily Progress Subjective Chief complaint of breast cancer post op day- 0 from MASTECTOMY BILATERAL (B), BIOPSY SENTINEL LYMPH NODE with magtrace (R) Interval History: No acute events overnight. Pain well-controlled, anticipate discharge home today. Current Facility-Administered Medications: acetaminophen (TYLENOL) tablet 1,000 mg, 1,000 mg, oral, Q6H ARIC, Chely Turner, FEDERAL APPELLATE CLERK, 1,000 mg at 05/23/22 2230 albuterol HFA (PROVENTIL HFA,VENTOLIN HFA,PROAIR HFA) 90 mcg/actuation inhaler 2 puff, 2 puff, inhalation, Q6H PRN (RT), Shady Ritchie MD amLODIPine (NORVASC) tablet 5 mg, 5 mg, oral, QAM, Shady Ritchie MD dextrose gel in packet 15 g, 15 g, oral, Q15 Min PRN OR dextrose (D10W) 10% bolus 250 mL, 250 mL, intravenous, Q15 Min PRN, Chely Turner, KAM doxycycline (VIBRAMYCIN) tablet/capsule 100 mg, 100 mg, oral, BID - special, Shady Ritchie MD, 100 mg at 05/23/22458 DULoxetine (CYMBALTA) extended release capsule 60 mg, 60 mg, oral, Nightly, Shady Ritchie MD, 60 mg at 05/22/222057 fluticasone furoate-vilanteroL (BREO ELLIPTA) 200-25 mcg/dose inhaler 1 puff, 1 puff, inhalation, Daily (RT), Chely Turner, KAM glucagon injection 1 mg, 1 mg, intramuscular, Q30 Min PRN, Chely Turner, FEDERAL APPELLATE CLERK insulin lispro (HumaLOG, ADMELOG) 100 unit/mL injection 0-4 Units, 0-4 Units, subcutaneous, Nightly, Chely Turner, FEDERAL APPELLATE CLERK, 2 Units at 05/22/222058 insulin lispro (HumaLOG, ADMELOG) 100 unit/mL injection 0-5 Units, 0-5 Units, subcutaneous, TID with meals, Chely Turner, FEDERAL APPELLATE CLERK, 1 Units at 05/22/221743 levothyroxine (SYNTHROID) tablet 75 mcg, 75 mcg, oral, QAM, Shady Ritchie MD nortriptyline (PAMELOR) capsule 10 mg, 10 mg, oral, Nightly, Shady Ritchie MD, 10 mg at 05/22/222057 oxyCODONE (ROXICODONE) tablet 5 mg, 5 mg, oral, Q4H PRN, Shady Ritchie MD, 5 mg at 05/23/22458 pantoprazole (PROTONIX) extended release tablet 40 mg, 40 [...] Max: 100 % Most Recent : Vitals: 05/23/22457 BP: 121/50 Pulse: 64 Resp: 14 Temp: [...] diet -Anticipate discharge home today Cosigned by Julio C, Kianna Machado MD PhD at 05/23/2022 1:35 PM COLD MEAT CHEF MEAT CHEF MEAT CHEF * Chely Turner NP - 05/22/2022 2:23 [...] 1,000 mg, oral, Q6H ARIC, Chely Turner, FEDERAL APPELLATE CLERK, 1,000 mg at 05/22/22 1319 albuterol HFA [...] BID - special, Shady Ritchie MD DULoxetine (CYMBALTA) extended release capsule 60 mg, 60 mg, oral, Nightly, Shady Ritchie MD fluticasone furoate-vilanteroL (BREO ELLIPTA) 200-25 mcg/dose inhaler 1 puff, 1 puff, inhalation, Daily (RT), Chely Turner, KAM glucagon injection 1 mg, 1 mg, intramuscular, Q30 Min PRN, Chely Turner, KAM insulin lispro (HumaLOG, ADMELOG) 100 unit/mL injection 0-4 Units, 0-4 Units, subcutaneous, Nightly, Chely Turner, KAM insulin lispro (HumaLOG, ADMELOG) 100 unit/mL injection 0-5 Units, 0-5 Units, subcutaneous, TID with meals, Chely Turner, KAM [START ON 05/23/2022] levothyroxine (SYNTHROID) tablet 75 [...] Bunch MD PhD at 05/22/2022 4:23 PM COLD MEAT CHEF MEAT CHEF MEAT CHEF documented in this encounter H&P Notes * Aft, Kianna L., MD PhD - 05/22/2022 6:53 AM CST I have reviewed the H&P, examined the patient, and endorse the findings as written. Plan of Care : Based on the above findings, I consider Aleah Gerber to be an acceptable risk for : Procedure(s): MASTECTOMY BILATERAL BIOPSY SENTINEL LYMPH NODE with magtrace MEAT CHEF Source Note - Kianna Bunch MD PhD - 05/09/2022 3:00 PM COLD MEAT CHEF PATIENT NAME: Aleah Gerber DATE OF : [...] (CMS/HCC) (HCC) (2018), Breast cancer (CMS/HCC) (HCC) (2017), Colon cancer (CMS/HCC) (HCC), Colon cancer (CMS/HCC) (HCC) (2017), Colon polyps, COPD (chronic obstructive pulmonary disease) (CMS/HCC) ([facility]), Depression, DVT (deep vein thrombosis) in (05/2017), [...] of Acute respiratory failure requiring reintubation (CMS/HCC) ([facility]), Atypical ductal hyperplasia of breast, Awareness under anesthesia, BRCA1 negative, BRCA1 positive,BRCA2 negative, Breast cyst, Breast injury, Delayed emergence from general anesthesia, Diabetes mellitus type I (HCC), Ductal hyperplasia of breast, Endometrial cancer (CMS/HCC) ([facility]), Fibrocystic breast, Hard to intubate, Lobular carcinoma in situ of breast, Malignant hyperthermia, Motion sickness, Ovarian cancer (HCC), Pneumothorax, PONV (postoperative nausea and vomiting), Postoperative delirium, Pseudocholinesterase deficiency, Smoking, or Thyroid cancer (CMS/HCC) ([facility]). PAST SURGICAL HISTORY: She has a past [...] plan outlined above. Kianna Bunch MD, PhD MEAT CHEF documented in this encounter Miscellaneous Notes * [...] today and drains teaching Summary: in progress MEAT CHEF * Plan of Care - Beck Lutz RRT - 05/23/2022 8:43 AM CST Pt received tx with no adverse reactions. Demonstrates good technique and understanding. Will transition to nurse administration per RT protocol. MEAT CHEF * Plan of Care - Lorrie Davey [...] with RN supervision, monitoring I&O's and vitals. MEAT CHEF * Perioperative Nursing Note - Jenifer Zazueta RN - 05/22/2022 9:23 AM COLD MEAT CHEF joao Anaya took left breast fresh specimen at 0923 MEAT CHEF * Perioperative Nursing Note - Jenifer Zazueta RN - 05/22/2022 9:07 AM COLD MEAT CHEF joao Anaya took fresh right breast specimen at 0907 MEAT CHEF * Op Note - Kianna Bunch MD [...] closed with a running 0 Quill suture. Prineo was applied. The procedure was concluded. All [...] the entire procedure (including opening and closing). MEAT CHEF * Pre-Procedure Instructions - Sofie Avendano NP - 05/11/2022 12:59 PM COLD MEAT CHEF [facility] CPAP Clinic Location: [facility] The night before your surgery: [...] going to be admitted after surgery at [facility], COVID testing may be performed on the day of surgery, even if you are up to date on your COVID-19 vaccine. * If having surgery at [facility], you may want to bring a credit card if you want to use our Mobile Pharmacy for your discharge medications. Mobile pharmacy is not available at [facility], the [facility]opedic [facility], or the [place] for [facility]. Outpatient Surgery: may stay 1 night [...] with COVID-19. You test positive for COVID-19. MEAT CHEF * Perioperative Nursing Note - Mirella Gentile RN - 05/11/2022 10:01 AM COLD MEAT CHEF Center for Preoperative Assessment and Planning Perioperative Nursing Note Telephone Preoperative Evaluation ([facility]) - TELEPHONE ONLY, NO PHYSICAL EXAM Date: [...] Other - see comments [employer] [id number] Powerport Clearvue Airguard 8fr 1 Lumen Lightweight Intermediate Latex Free - [id number] - Implanted (Right) Chest Wall Inventory item: [employer] Powerport Clearvue Airguard 8fr 1 Lumen Lightweight Intermediate Latex Free [id number] Model/Cat number: [id number] Evp Strategy: [employer] Lot number: [id number] Size: 8F Device identifier: [id number] Device identifier type: GS1 As of 01/14/2018 [...] expects to be discharged to:: Private residence (Ornamental Machine Operator and Caregiver: Daughter) IAP DISPLAYS ANALYST NO ADDITIONAL COMMENTS/ FOLLOW UP MEAT CHEF * Pre-Procedure Instructions - Mirella Gentile RN - 05/11/2022 10:00 AM COLD MEAT CHEF CENTER FOR PREOPERATIVE ASSESSMENT AND PLANNING (CPAP) [...] your insurance card, a photo ID (example: Ornamental Machine Operator's License) and a method of payment for [...] Chart. If you are having surgery at [facility], please arrive on the day of [...] Pathway to Excellent Care by the followinglink: [email or web address] How To Prepare Your Skin [...] Remove nail coverings, artificial nails and nail sinhala. The Morning of Surgery: Take a shower [...] questions, please call the CPAP Staff at [phone], Saturday-Saturday 8am-4:30pm. All patients should read the below section: All visitors/patients are being asked to wear a clean face mask when entering the hospital. COVID 19 Updates & Visitor Policy: Please access [email or web address] for the most updated information. Information on [facility]: Please view [email or web address] (Patient & Visitor Information) for additional details regarding Advanced Directive forms, AWARE, directions, parking information, lodging, Internet access, dining and more. Information on [facility] or [facility] ([facility]): Please view [email or web address] (Patient and Visitor Information) for parking/directions and more. For MyChart information, to activate account or password recovery, please go to [email or web address] or call [phone] (toll-free: [phone]). Information for Suicide Prevention: National Suicide Prevention Lifeline (2-781- 507-FTRA (6231)). Surgery Times: For patients having surgery @ [facility], [facility], [facility] or [facility] ([facility]), if your surgeon's office has not notified you of your surgery time by NOON THE BUSINESS DAY BEFORE your surgery, please call [phone] and ask for your surgeon's office Dr. Bunch. MEAT CHEF documented in this encounter Plan of Treatment Not on file documented as of this encounter Procedures Procedure Name Priority Date/Time Associated Diagnosis Comments POCT GLUCOSE DEVICE Routine 05/23/2022 7:28 AM COLD MEAT CHEF POCT GLUCOSE DEVICE Routine 05/22/2022 8:44 PM COLD MEAT CHEF POCT GLUCOSE DEVICE Routine 05/22/2022 5:36 PM COLD MEAT CHEF POCT GLUCOSE DEVICE Routine 05/22/2022 11:07 AM COLD MEAT CHEF SURGICAL PATHOLOGY Routine 05/22/2022 8: 52 AM COLD MEAT CHEF Malignant 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, 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) (HCC) BIOPSY SENTINEL LYMPH NODE 05/22/2022 7:52 AM COLD MEAT CHEF Malignant 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, 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) (HCC) Special Needs Senitmag needed day of surgery MASTECTOMY BILATERAL 05/22/2022 7:52 AM COLD MEAT CHEF Malignant 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, 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) (HCC) Special Needs Senitmag needed day of surgery POCT GLUCOSE DEVICE Routine 05/22/2022 6:40 AM COLD MEAT CHEF documented in this encounter Results * POCT glucose (05/23/2022 7:28 AM COLD MEAT CHEF) Glucose, POC 179 70 - 199 mg/dL [facility] Blood 05/23/2022 7:28 AM COLD MEAT CHEF 05/23/2022 7:28 AM COLD MEAT CHEF us Kianna Bunch MD PhD LAB POCT ORDERABLES - ROSEMARY CE Final Result Performing Organization Address City/[facility]/ZIP Co de Phone Number [facility] [employer] [place] [address] * (ABNORMAL) POCT glucose (05/22/2022 8:44 PM COLD MEAT CHEF) Glucose, POC 256(H) 70 - 199 mg/dL [facility] Blood 05/22/2022 8:44 PM COLD MEAT CHEF 05/22/2022 8:44 PM COLD MEAT CHEF us Kianna Bunch MD PhD LAB POCT ORDERABLES - ROSEMARY CE Final Result Performing Organization Address [facility] Co de Phone Number [facility] [employer] [place] [address] * POCT glucose (05/22/2022 5:36 PM COLD MEAT CHEF) Glucose, POC 196 70 - 199 mg/dL [facility] Blood 05/22/2022 5:36 PM COLD MEAT CHEF 05/22/2022 5:36 PM COLD MEAT CHEF us Kianna Bunch MD PhD LAB POCT ORDERABLES - ROSEMARY CE Final Result Performing Organization Address City/[facility]/ZIP Co de Phone Number [facility] [employer] [place] [address] * POCT glucose (05/22/2022 11:07 AM COLD MEAT CHEF) Glucose, POC 199 70 - 199 mg/dL [facility] Blood 05/22/2022 11:0 7 AM COLD MEAT CHEF 05/22/2022 11:07 AM COLD MEAT CHEF us Kianna Bunch MD PhD LAB POCT ORDERABLES - ROSEMARY CE Final Result Performing Organization Address City/[facility]/ZIP Co de Phone Number [facility] [place] [address] * Surgical pathology (05/22/2022 8:52 AM COLD MEAT CHEF) Tissue (Lymph node, sentinel breast) 05/22/2022 8:52 AM COLD MEAT CHEF Tissue (Breast, simple mastectomy) 05/22/2022 8:57 AM COLD MEAT CHEF Tissue (Breast, simple mastectomy) 05/22/2022 9:14 AM COLD MEAT CHEF Narrative PATHOLOGY [facility] - 05/30/2022 9:38 AM COLD MEAT CHEF EPIC results best viewed via link to PDF [facility] [place] [address] Note to Patients: This report may contain [...] Gender: ??F : ??1955 (Age: 66) Address: ??[address] [place] [address] ??[id number] Hospital #: ??[id number] Taken:05/22/2022 Received:05/22/2022 Reported: 05/30/2022 Patient Type: [facility] OP In Bed ?? Service: Oncology Location: [place] [address] Physician(s): ??Hortencia Warren M.D. David Yablonsky, DO [...] (0/3) ? - No invasive carcinoma identified hxl/05/25/2022 09:24 By this signature, I attest that the above diagnosis is based upon my personal examination of the slides(and/or other material indicated in the diagnosis). Mason Ramsey M.D., Ph.D. Report Electronically Reviewed and Signed Out By ??Mason Ramsey M.D., Ph.D. 05/30/2022 09:38:14 Microscopic Description and Comment: Microscopic examination substantiates the above cited diagnosis. The prior biopsy [id number] has been reviewed. In part B, the [...] sparing (simple mastectomy) ? Lymph node sampling: ?[place] lymph node(s) ? Specimen laterality: ?Right ? Tumor site invasive carcinoma: ?Upper inner quadrant ? 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 Tumor size: ?Greatest dimension: 5mm ? Histologic grade (Wilda Histologic Score): ?Tubular differentiation: ??Score 3 ?Nuclear [...] involvement: ?All lymph nodes are negative ? [place] node evaluation: ?H&E, multiple levels ? Response [...] ?? The Mammaprint test was performed by [facility], [place] [address]. The performance characteristics of some immunohistochemical stains, fluorescence in-situ hybridization tests and immunophenotyping by flow cytometry cited in this report (if any) were determined by the Surgical Pathology and Flow Cytometry Departments at [facility] as part of an ongoing automotive quality engineer program and in compliance with federally mandated [...] Surgical Pathology and Flow Cytometry Departments of [facility]. ??It has not been cleared or approved by the U. S. Food and Drug Administration. IMAGES AND SCANNED DOCUMENTS, IF INCLUDED, ONLY VIEWABLE IN PDF VERSION OF REPORT Kianna Bunch MD PhD LAB PATHOLOGY ORDERABLES F inal Result PATHOLOGY [facility] 3rd Floor [place], [place] [phone] * POCT glucose (05/22/2022 6:40 AM COLD MEAT CHEF) Glucose, POC 141 70 - 199 mg/dL [facility] Blood 05/22/2022 6:40 AM COLD MEAT CHEF 05/22/2022 6:40 AM COLD MEAT CHEF Kianna Bunch MD PhD LAB POCT ORDERABLES - ROSEMARY CE Final Result Performing Organization Address [facility] Co de Phone Number [facility] [place] [address] documented in this encounter Visit Diagnoses Diagnosis Malignant 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, estrogen receptor negative (HCC)- Primary Malignant 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, estrogen receptor negative (HCC) documented in this encounter Admitting Diagnoses Diagnosis [...] AnalgesiaIndications:Pre-Emptiv e Analgesia Given 05/22/2022 6:32 AM COLD MEAT CHEF 1,000 mg acetaminophen (TYLENOL) tablet 1,000 mg 1,000 mg, oral, Every 6 hours scheduled, First dose (after last modification) on Sat05/22/22 at 1400, Indications: PainIndications:Pain Given 05/23/2022 12:15 PM COLD MEAT CHEF 1,000 mg Given 05/23/2022 4:59 AM COLD MEAT CHEF 1,000 mg Given 05/22/2022 7:03 PM COLD MEAT CHEF 1,000 mg albuterol HFA (PROVENTIL HFA,VENTOLIN HFA,PROAIR HFA) 90 mcg/actuation inhaler 2 puff 2 puff, inhalation, Every 6 hours PRN (manager respiratory), wheezing, Starting on Sat05/22/22 at 1315 amLODIPine (NORVASC) tablet 5 mg 5 mg, oral, Every morning, First dose on Sat05/23/22 at 0900, Indications: hypertensionIndications:hypertension Given 05/23/2022 8:16 AM COLD MEAT CHEF 5 mg dextrose (D10W) 10% bolus 250 [...] Prophylaxis, MedicalIndications:Prophylaxis, Medical Given 05/23/2022 4:59 AM COLD MEAT CHEF [address] (CYMBALTA) extended release capsule 60 mg 60 mg, oral, Nightly, First dose on Sat05/22/22 at 2100, Capsule may be opened and contents mixed with applesauce or apple juice ONLY. Do not crush, chew, cut, dissolve, open or otherwise manipulate tablet/capsule., Indications: Neuropathic PainIndications:Neuropathic Pain Given 05/22/2022 8:58 PM COLD MEAT CHEF 60 mg fluticasone furoate-vilanteroL (BREO ELLIPTA) 200-25 mcg/dose inhaler 1 puff 1 puff, inhalation, Daily (manager respiratory), First dose on Sat05/22/22 at 1400 Given 05/23/2022 8:40 AM COLD MEAT CHEF 1 puff fluticasone furoate-vilanteroL (BREO ELLIPTA) 200-25 [...] more., Indications: PainIndications:Pain Given 05/22/2022 12:00 PM COLD MEAT CHEF 0. 2 mg Given 05/22/2022 11:42 AM COLD MEAT CHEF 0.2 mg Given 05/22/2022 11:31 AM COLD MEAT CHEF 0.2 mg insulin lispro (HumaLOG, ADMELOG) 100 [...] Diabetes MellitusIndications:Diabetes Mellitus Given 05/22/2022 8:59 PM COLD MEAT CHEF 2 Units Right Upper Arm insulin lispro [...] Diabetes MellitusIndications:Diabetes Mellitus Given 05/23/2022 8:16 AM COLD MEAT CHEF 1 Units Left Lower Abdomen Given 05/22/2022 5:44 PM COLD MEAT CHEF 1 Units Ri ght Lower Abdomen insulin lispro (HumaLOG, ADMELOG) 100 unit/mL injection 3 Units 3 Units, subcutaneous, Once, On Sat05/22/22 at 1145, For 1 dose, Phase I, Indications: HyperglycemiaIndications:Hype rglycemia Given 05/22/2022 11:21 AM COLD MEAT CHEF 3 Units Left Upper Arm isosulfan blue (LYMPHAZURIN) 1 % injection As needed, Starting on Sat05/22/22 at 0830, Intra-Op Given 05/22/2022 8:30 AM COLD MEAT CHEF 5 mL Surgical Site Lactated Ringer's (LR) infusion 30 mL/hr, intravenous, Continuous, Starting on Sat05/22/22 at 0630 New Bag 05/22/2022 9:36 AM COLD MEAT CHEF Rate/Dose Verify 05/22/2022 7:47 AM COLD MEAT CHEF 30 mL/h r Rate/Dose Change 05/22/2022 7:47 AM COLD MEAT CHEF 30 mL/h r levothyroxine (SYNTHROID) tablet 75 mcg 75 mcg, oral, Every morning, First dose on Sat05/23/22 at 0900, Administer on an empty stomach, preferably 30 minutes before breakfast. Take 4 hours apart from antacids, iron and calcium products. Separate from tube feeds, if applicable., Indications: hypothyroidismIndications:hypothyroidism Given 05/23/2022 8:16 AM COLD MEAT CHEF 75 mcg nortriptyline (PAMELOR) capsule 10 mg 10 mg, oral, Nightly, First dose on Sat05/22/22 at 2100, Indications: Postherpetic Neuralgia, and sleepIndications:Postherpetic Neuralgia,and sleep Given 05/22/2022 8:58 PM COLD MEAT CHEF 10 mg oxyCODONE (ROXICODONE) tablet 5 mg 5 mg, oral, Every 4 hours PRN, 2nd line for pain, Starting on Sat05/22/22 at 1309, May administer 1 hour after 1st line agent for uncontrolled or increasing pain. , Indications: PainIndications:Pain Given 05/23/2022 12:15 PM COLD MEAT CHEF 5 mg Given 05/23/2022 4:59 AM COLD MEAT CHEF 5 mg Given 05/22/2022 1:19 PM COLD MEAT CHEF [address] (PROTONIX) extended release tablet 40 mg 40 mg, oral, Daily, First dose on Sat05/23/22 at 0900, Do not crush, chew, cut, dissolve, open or otherwise manipulate tablet/capsule., Indications: Treatment of Non-Bleeding Gastric DisorderIndications:Treatment of Non-Bleeding Gastric Disorder Given 05/23/2022 8:15 AM COLD MEAT CHEF 40 mg propranoloL (INDERAL) tablet 40 mg 40 mg, oral, 2 times daily, First dose on Sat05/22/22 at 1345 Given 05/23/2022 4:58 AM COLD MEAT CHEF 40 mg Given 05/22/2022 4:28 PM COLD MEAT CHEF 40 mg sodium chloride 0.9% irrigation As needed, Starting on Sat05/22/22 at 0830, Intra-Op Given 05/22/2022 8:30 AM COLD MEAT CHEF 1,000 mL Surgical Site topiramate (TOPAMAX) tablet 25 mg 25 mg, oral, 3 times daily, First dose on Sat05/22/22 at 1600, Indications: painIndications:pain Given 05/23/2022 8:16 AM COLD MEAT CHEF 25 mg Given 05/22/2022 8:58 PM COLD MEAT CHEF 25 mg Given 05/22/2022 4:29 PM COLD MEAT CHEF 25 mg documented in this encounter Discontinued [...] Recently Administered Medications Times are shown in COLD MEAT CHEF. Scheduled Medication Order 05/21/2022 05/22/2022 05/23/2022 acetaminophen [...] without regard to meals., Indications: Prophylaxis, Medical 0459 (Given - Provid er: Baudilio Nicholson RN) [...] 1 puff (CANCELED) 1 puff, inhalation, Daily (manager respiratory), First dose on Sat05/22/22 at 1400 1400 (Not Given - Provider: Daisha Grimm, PRECISION AGRICULTURE TECHNICIAN - Reason: Other - Comment: patient not [...] Indications: pain 1629 (Given - Provider: Lorrie Davey RN)2058 (Given - Provider: Baudilio Nicholson RN) 0816 (Given - Provider: Elizabeth Morelos RN) Continuous Medication Order 05/21/2022 05/22/2022 05/23/2022 Lactated [...] 2 puff, inhalation, Every 6 hours PRN (manager respiratory), wheezing, Starting on Sat05/22/22 at 1315 dextrose [...] Indications: Pain 1131 (Given - Provider: Halle Harris, LYDIA)1142 (Given - Provider: Halle Harris, RN)1200 (Given - Provider: Halle Harris RN) isosulfan blue (LYMPHAZURIN) 1 % injection [...] Baudilio Nicholson RN)1215 (Given - Provider: Elizabeth Morelos, LYDIA) sodium chloride 0.9% irrigation (CANCELED) As needed, [...] 1 05/23/2022 acetaminophen (TYLENOL) tablet 650 mg albuterol HFA (PROVENTIL HFA ,VENTOLIN HFA,PROAIR HFA) 90 mcg/actuation inhaler 2 puff 2 05/22/2022 Carrier Fluids for Secondary Infusion - 0.9% Sodium Chloride 05/22/2022 dextrose (D10W) 10% bolus 250 mL 05/22/19 dextrose gel in packet 15 g 05/22/2022 enoxaparin (LOVENOX) syringe 40 mg 2022 glucagon injection 1 mg 05/22/2022 HYDROmorphone (DILAUDID) injection 0.4 mg 05/22/2022 lidocaine PF (XYLOCAINE) 10 mg/mL (1 %) preservative free injection 2-10 mg 05/22/2022 naloxone (NARCAN) 0.4 mg/mL injection 0.04-0.4 mg 05/22/2022 ondansetron (ZOFRAN) injection 4 mg 05/22 oxyCODONE (ROXICODONE) tablet 5 mg 2022 prochlorperazine (COMPAZINE) injection 5 mg 05/22/2022 sodium chloride 0.9% flush 0.5-20 mL 3 05/06 Lab Orders Without Results Count Last Ordered D ate First Ordered Date POCT GLUCOSE DEVICE 2 05/23/2022 05/22/19 23 Diet Count Last Ordered Date First Orde [...] 05/23/2022 documented in this encounter Care Teams Nurse Emergency Room Relationship Specialty Start Date End Date Dat Benito DO [address] [place] [address] PCP - General Internal Medicine 09/28/21 Aft, Kianna Machado MD PhD [address] [place] [address] Surgeon Surgical Oncology 11/22/17 Santiago Gilbert MD [address] [place] [address] Ice Resurfacing Machine Operators Gastroenterology 11/22/17 Abbi Ventura MD [address] [place] [address] [address] [place] [address] Medical Oncologist/Cushion Builder Medical Oncology 12/03/18 Montse Thompson MD [address] [facility] [address] [place] [address] Consulting Physician Gynecologic Oncology 12/03/18 Lela Hardy MD PhD [address] [facility] [address] [place] [address] Radiation Oncologist Radiation Oncology 12/23/18 Trena Obando MD [address] [place] [address] Consulting Physician Neurology 09/18/21 documented as of this encounter
--- OUTSIDE RECORDS SUMMARY | 2024-04-24 13:37 | XMS_ITS | Encounter Summary ---
Author Organization [facility] Healthcare Address [address] [place] [address] Care Team Providers Care Swimming Instructor Name Role Phone Kianna Bunch MD PhD Unavailable [phone] Santiago Gilbert MD Unavailable Abbi Ventura MD Unavailable Montse Thompson MD Unavailable [phone] Lela Hardy MD PhD Unavailable [phone] Trena Obando MD Unavailable [phone] Dat Benito DO Primary Care Provider [phone] Encounter Details Date Type Department Care Team (Late st Contact Info) Description 05/29/2022 Orders Only [facility] Surgeon [address] [place] [address] Kianna Bunch MD PhD [address] [place] [address] Social History Tobacco Use Types Packs/Day Years [...] on file 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 Administer a single spray in one nostril. Repeat every 3 minutes as needed if no or minimal response. 1 each 05/29/2022 3 oxyCODONE (ROXICODONE) 5 mg immediate release tabletIndications: Pain Take 1 tablet (5 mg total) by mouth every 4 (four) hours as needed for pain for up to 7 days 20 tablet 05/29/2022 3 documented in this encounter Plan of Treatment Not on file documented as of this encounter Visit Diagnoses Not on filedocumented in this encounter Discontinued Medications Medication Sig Discontinue Reason Start Date End Da te oxyCODONE (ROXICODONE) 5 mg immediate release tabletIndications:Pain Take 1 tablet (5 mg total) by mouth every 4 (four) hours as needed for pain 05/23/2022 05/29/2022 documented as of this encounter Care Teams Swimming Instructor Relationship Specialty Start Date End Date Dat Benito DO [address] [place] [address] PCP - General Internal Medicine 09/28/21 Aft, Kianna Machado MD PhD [address] [place] [address] Surgeon Surgical Oncology 11/22/17 Santiago Gilbert MD [address] [place] [address] Junior Mechanical Engineer Gastroenterology 11/22/17 Abbi Ventura MD [address] [place], [place] [id number] Medical Oncologist/Tape Recorder Mechanic Medical Oncology 12/03/18 Montse Thompson MD [address] [facility] [address] [place], [place] [id number] Consulting Physician Gynecologic Oncology 12/03/18 Lela Hardy MD PhD [address] [facility] [address] [place], [place] [id number] Radiation Oncologist Radiation Oncology 12/23/18 Trena Obando MD [address] [place], [place] [id number] Consulting Physician Neurology 09/18/21 documented as of this encounter
--- OUTSIDE RECORDS SUMMARY | 2024-04-24 13:37 | XMS_ITS | Encounter Summary ---
Author Organization [facility] Healthcare Address [address] [place] [address] Care Team Providers Care Social Work Case Manager Name Role Phone Aft, Kianna Machado MD PhD Unavailable [phone] Santiago Gilbert MD Unavailable [phone] Abbi Ventura MD Unavailable Montse Thompson MD Unavailable [phone] Lela Hardy MD PhD Unavailable [phone] Trena Obando MD Unavailable [phone] Dat Benito DO Primary Care Provider [phone] Reason for Visit * Auth/Cert Specialty Diagnoses / Procedures Referred By Contac t Referred To Contact Diagnoses Malignant 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, 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, 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) (HCC) [C50.212, Z17.1] Procedures NV BX/EXC LYMPH NODE OPEN SUPERFICIAL NV MASTECTOMY SIMPLE COMPLETE NV INTRAOP SENTINEL LYMPH NODE ID W/DYE INJECTION MASTECTOMY BILATERAL BIOPSY SENTINEL LYMPH NODE with magtrace Referral ID Status Reason Start Date Expiration Date Visits Re quested Visits Authorized [id number] 1 1 Encounter Details Date Type Department Care Team (Late st Contact Info) Description 05/22/2022 7:47 AM SURG NURSE Anesthesia Event [facility] Operating Room [facility]) [address] [place] [id number] Wisam Bledsoe MD [address] [facility] [id number] [place] [address] Sofie Avendano NP [address] [facility] [id number] [place] [address] Anesthesia Record Procedure Summary Procedure Name Responsible Anesthesiologist Anesthesia Start Time Anesthesia Stop Time MASTECTOMY BILATERAL (Bilateral: Breast) Wisam Bledsoe MD 05/22/22 0747 05/22/22 1031 Events Date Time Event Comment 05/22/2022 0549 In Preop 0648 0729 Start Supplemental O2 0729 Time out - Regional 0730 An Block Induction The patie nt was reevaluated immediately before moderate or deep sedation and before anesthesia induction. 0739 Block Placed 0747 An Start 0752 In Room 0752 An Start Data 0752 Face Time 0757 An Induction The patient was reevaluated immediately before moderate or deep sedation use and before anesthesia induction. 0800 An LMA 0809 Anesthesia Ready 0810 Incision Start 0810 Proc Start 1016 Proc Fin 1018 Airway Removed 1019 an stop data 1024 Out of Room 1029 Handoff to RN I completed my handoff to the receiving nurse during which we: 1. Patient identified 2. Responsible provider identified 3. Pertinent medical history reviewed 4. Procedure type and surgical course discussed 5. Intraoperative anesthetic management and any significant issues discussed 6. Expectations and concerns for postop period discussed 7. Questions solicited from receiving nurse 8. Patient disposition at the time of handoff: PACU 1031 An Stop Meds Name Total midazolam PF 2 mg lidocaine (cardiac) syringe 2 % 40 mg propofol 200 mg fentaNYL 400 mcg phenylephrine 100 mcg/mL 900 mcg ondansetron PF (ZOFRAN) 2 mg/mL injectio n 4 mg bupivacaine 0.25 % PF 50 mL ceFAZolin 2,000 mg dexAMETHasone 4 mg/mL 4 mg ePHEDrine 50 mg/1 mL vial 25 mg Lactated Ringer's (LR) infusion 1,000 mL * Agents Name O2% N2O O2 N2O Air Sevoflurane Inspired Sevoflurane * Blood No blood administrations on file. Lines, Drains, and Airways Type Details Placement Removal Peripheral IV Placement Date: 05/22/22; Placement Time: 0647; Catheter Size: 20 G; Orientation: Posterior, Right; Location: Hand; Site Prep: Chlorhexidine; Inserted by: MoRN; Insertion Attempts: 2; Patient Tolerance: Tolerated well; Removal Date: 05/23/22; Removal Time: 1116; Removal Reason: Discharge 05/22/22 0647 by Saloni Zelaya RN 05/23/22 1116 by Elizabeth Morelos RN Supraglottic Airway Placement Date: 05/22/22; Placement Time: 812 (created via procedure documentation); Mask Ventilation: 0; Size: 5; Insertion Attempts: 1; Removal Date: 05/22/22; Removal Time: 1018 05/22/22 0813 by Mariam López, SUPERVISOR SAWMILL 05/22/22 1018 by Mariam López CRNA Closed/Suction/Open Drain 05/22/22; 0917; 1; Lateral, Right; Breast; Bulb; 19 Fr.; 1; Removal date unknown/not present on admission 05/22/22 0917 by Jenifer Zazueta RN 07/17/23 1507 by Gilberto Headley RN Closed/Suction/Open Drain 05/22/22; 0918; 2; Lateral, Left; Breast; Bulb; 19 Fr.; 1; Other (Comment), Removal date unknown/not present on admission 05/22/22 0918 by Jenifer Zazueta RN 07/17/23 1506 by Gilberto Headley RN documented in this encounter Social History Tobacco [...] on file 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 SURG NURSE Gender Identity Not on file Sexual Orientation Not on file documented as of this encounter OR Notes * Anesthesia Postprocedure Evaluation - Wisam Bledsoe MD - 05/22/2022 11:46 AM CST Patient: Aleah Gerber Procedure Summary Date: 05/22/22 Room / Location: [facility] CAM OR POD 4 ROOM A / [facility] CAM OR POD 4 Anesthesia Start: 07 Anesthesia Stop: 1030 Procedures: MASTECTOMY BILATERAL (Bilateral: Breast) BIOPSY SENTINEL LYMPH NODE with magtrace (Right: Axilla) Diagnosis: Malignant 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, 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) (HCC) (Malignant 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, 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) (HCC) [C50.212, Z17.1]) Surgeons: Kianna Bunch MD PhD Responsible Provider: Wisam Bledsoe MD Anesthesia Type: general, PNB - single shot ASA Status: 2 Anesthesia Type: general, PNB - single shot Last vitals BP 122/53 Pulse 66 Temp 36.3 ??C (97.3 ??F) Resp 14 SpO2 95% Anesthesia Post Evaluation Patient location during evaluation: PACU Patient participation: complete - patient participated Level of consciousness: fully awake Pain management: adequate Airway patency: adequate Evidence of recall: no Anesthetic complications: no Cardiovascular status: acceptable and hemodynamically stable Respiratory status: acceptable and room air Hydration status: euvolemic Pt is: normothermic Nausea/Vomiting status: none Comments: Blood glucose raise after surgery ( s/p dexamethasone). Insulin naive, but staying inpatient. S/p 3 units lispro. Will continue to monitor on the floor. No notable events documented. NURSE * Anesthesia Procedure Notes - Mariam López CRNA - 05/22/2022 8:13 AM CSTAssociated Order(s): Airway Airway Patient location: OR Urgency: elective Indications for airway management: anesthesia Difficult airway: no Staff: Supervising provider: Wisam Bledsoe MD Placed by: SUPERVISOR SAWMILL: Mariam López CRNA Emergent airway documentation: Risks and benefits discussed: yes Consent obtained: yes Consent given by: patient Airway prep: Preoxygenated: yes Patient position: sniffing MILS maintained throughout: yes Mask difficulty assessment: 0 - not attempted Spontaneous ventilation during airway: absent Sedation level during airway: GA Final airway details: Final airway type: supraglottic airway Final supraglottic airway: IGel SGA size: 5 Number of attempts: 1 NURSE * Anesthesia Procedure Notes - Santiago Salvador MD - 05/22/2022 7:57 AM SURG NURSE Associated Order(s): Peripheral Block Images from the original note were not included. Peripheral Block Patient location during procedure: pre-op holding Reason for block: post-op pain management per surgeon request Ultrasound image in chart or stored: yes Block type: single shot Laterality: left Block type: PECS I Staff: Supervising provider: Allyson Goldberg MD Placed by: Resident: Santiago Salvador MD Procedure prep: Preprocedure checklist: patient identified, procedure contraindications assessed, site marked, procedure consent, surgical consent, IV checked, risks, benefits and alternatives discussed, monitors and equipment checked and timeout performed Patient position: supine Procedure performed while patient: sedate with meaningful contact Monitoring: ECG, blood pressure and oximetry Supplemental O2: nasal cannula Prep solution: chlorhexidine/alcohol PPE: provider hat/mask, sterile gloves and sterile probe cover and gel Peripheral nerve block: Technique: ultrasound guided Needle type: insulated, short-bevel and echogenic Needle gauge: 22 G Needle length: 80 mm Injection assessment: injection made incrementally with constant monitoring, local visualized surrounding nerve on ultrasound, negative aspiration for heme, no paresthesias noted, normal resistance to injection and see flowsheet for medication details Assessment: Block success: full evaluation pending Events: patient tolerated procedure well with no complications Cosigned by Allyson Goldberg MD at 05/22/2022 11:37 AM SURG NURSE NURSE NURSE * Anesthesia Procedure Notes - Santiago Salvador MD - 05/22/2022 7:56 AM SURG NURSE Associated Order(s): Peripheral Block Images from the original note were not included. Peripheral Block Patient location during procedure: pre-op holding Reason for block: post-op pain management per surgeon request Ultrasound image in chart or stored: yes Block type: single shot Laterality: left Block type: PECS II Staff: Supervising provider: Allyson Goldberg MD Placed by: Resident: Santiago Salvador MD Procedure prep: Preprocedure checklist: patient identified, procedure contraindications assessed, site marked, procedure consent, surgical consent, IV checked, risks, benefits and alternatives discussed, monitors and equipment checked and timeout performed Patient position: supine Procedure performed while patient: sedate with meaningful contact Monitoring: ECG, oximetry and blood pressure Supplemental O2: nasal cannula Prep solution: chlorhexidine/alcohol PPE: provider hat/mask, sterile gloves and sterile probe cover and gel Peripheral nerve block: Technique: ultrasound guided Needle type: insulated, short-bevel and echogenic Needle gauge: 22 G Needle length: 80 mm Injection assessment: injection made incrementally with constant monitoring, local visualized surrounding nerve on ultrasound, negative aspiration for heme, no paresthesias noted, normal resistance to injection and see flowsheet for medication details Assessment: Block success: full evaluation pending Events: patient tolerated procedure well with no complications Cosigned by Allyson Goldberg MD at 05/22/2022 11:37 AM SURG NURSE NURSE NURSE * Anesthesia Procedure Notes - Santiago Salvador MD - 05/22/2022 7:55 AM SURG NURSE Associated Order(s): Peripheral Block Images from the original note were not included. Peripheral Block Patient location during procedure: pre-op holding Reason for block: post-op pain management per surgeon request Ultrasound image in chart or stored: yes Block type: single shot Laterality: right Block type: PECS I Staff: Supervising provider: Allyson Goldberg MD Placed by: Resident: Santiago Salvador MD Procedure prep: Preprocedure checklist: patient identified, procedure contraindications assessed, site marked, procedure consent, surgical consent, IV checked, risks, benefits and alternatives discussed, monitors and equipment checked and timeout performed Patient position: supine Procedure performed while patient: sedate with meaningful contact Monitoring: ECG, blood pressure and oximetry Supplemental O2: nasal cannula Prep solution: chlorhexidine/alcohol PPE: provider hat/mask, sterile gloves and sterile probe cover and gel Peripheral nerve block: Technique: ultrasound guided Needle type: insulated, short-bevel and echogenic Needle gauge: 22 G Needle length: 80 mm Injection assessment: injection made incrementally with constant monitoring, local visualized surrounding nerve on ultrasound, negative aspiration for heme, no paresthesias noted, normal resistance to injection and see flowsheet for medication details Assessment: Block success: full evaluation pending Events: patient tolerated procedure well with no complications Cosigned by Allyson Goldberg MD at 05/22/2022 11:37 AM SURG NURSE NURSE NURSE * Anesthesia Procedure Notes - Santiago Salvador MD - 05/22/2022 7:54 AM SURG NURSE Associated Order(s): Peripheral Block Images from the original note were not included. Peripheral Block Patient location during procedure: pre-op holding Reason for block: post-op pain management per surgeon request Ultrasound image in chart or stored: yes Block type: single shot Laterality: right Block type: PECS II Staff: Supervising provider: Allyson Goldberg MD Placed by: Resident: Santiago Salvador MD Procedure prep: Preprocedure checklist: patient identified, procedure contraindications assessed, site marked, procedure consent, surgical consent, IV checked, risks, benefits and alternatives discussed, monitors and equipment checked and timeout performed Patient position: supine Procedure performed while patient: sedate with meaningful contact Monitoring: ECG, oximetry and blood pressure Supplemental O2: nasal cannula Prep solution: chlorhexidine/alcohol PPE: provider hat/mask, sterile gloves and sterile probe cover and gel Peripheral nerve block: Technique: ultrasound guided Needle type: insulated, short-bevel and echogenic Needle gauge: 22 G Needle length: 80 mm Injection assessment: injection made incrementally with constant monitoring, local visualized surrounding nerve on ultrasound, negative aspiration for heme, no paresthesias noted, normal resistance to injection and see flowsheet for medication details Assessment: Block success: full evaluation pending Events: patient tolerated procedure well with no complications Cosigned by Allyson Goldberg MD at 05/22/2022 11:36 AM SURG NURSE NURSE NURSE Associated attestation - Allyson Goldberg MD - 05/22/2022 11:36 AM SURG NURSE Agreed * Anesthesia Preprocedure Evaluation - Wisam Bledsoe MD - 05/11/2022 12:52 PM CST Images from the original note were not included. [facility] Preoperative Assessment and Planning Preoperative Evaluation Record Evaluation type/location: TPAP from [facility] Planned procedure site: [facility] CAM OR (Pod 4) Date: 05/11/22 NOTE: This note represents a preoperative evaluation initiated via telephone interview. NO PHYSICALEXAM was performed at the time of initial assessment. A physical exam may be added to this note anddocumented below. Anesthesia Evaluation Aleah Gerber is a 66 y.o. female Procedure(s): MASTECTOMY BILATERAL BIOPSY SENTINEL LYMPH NODE with magtrace Pre-Op Diagnosis Codes: * Malignant 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, 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) (HCC) [C50.212, Z17.1] HISTORY HPI Patient is a 66 y.o. female with a PMH of TIA, HTN, HLD, DVT/PE in 2019 in setting of cancer, COPD/asthma, hypothyroid, diet controlled DM2 and colon/ breast cancer. She presents prior to undergoing MASTECTOMY BILATERAL & BIOPSY SENTINEL LYMPH NODE with magtrace Past Medical History Information obtained from: patient and chart. Neurological + TIA Number of TIA episodes: 1. Date of last TIA: ~2002. + Psychiatric history - anxiety and depression Pertinent negatives: seizures; neuromuscular disease; CVA/stroke and dementia/mild cognitive impairment Cardiovascular + Hypertension Typical systolic BP - 120 Typical diastolic BP - 70 + Hyperlipidemia + DVT/PE (r/t chemo) Number of DVT/PE episodes: 1. Last VTE date: 2018. Pertinent negatives: CAD ; [place] ; CABG ; valvular heart disease; atrial fibrillation; pacemaker/ICD; PVD; negative for CHF; drug-eluting stent(s) and bare metal stent(s) Respiratory + COPD Dyspnea frequency: never. Rescue inhaler use: never. Hospitalizations/ER in the last year: 0. History of oral steroid use. + Asthma Hospitalizations/ER in the last year: 0. History of oral steroid use. + Sleep apnea (VIOLETTE) (uses mouth guard at times) Prescribed device: PAP non-compliant. Pertinent negatives: pulmonary hypertension; no O2 use outside the hospital; no prior intubation for respiratory failure; no prior intubation for respiratory failure due to asthma and non-smoker Comments: Follows with Dr. Ware Hepatic / Heme + Liver disease (fatty liver per chart review, pt denies liver issues) + History of anemia - in neoplastic disease Pertinent negatives: history of thrombocytopenia Renal / + Renal disease - CKD + Nephrolithiasis Pertinent negatives: dialysis Comments: Follows with PCP Endocrine / Other + Diabetes mellitus (diet controlled) - Diabetes type 2. Outpatient insulin use: none. Pt reported low glucose range is 70. Pt reported high glucose range is 200. Pt reported HgA1c: <7. Pt reported HgA1c date: 01/2022. + Thyroid disease - hypothyroidism + Obesity (BMI >30) + Cancer history (last chemo and radiation 2018)- s/p chemo, s/p radiation and in remission. Cancertype: breast cancer, colon cancer. Pertinent negatives: rheumatological disease; transplanted organ and infectious disease Functional Capacity Functional capacity: 4-6 METs Comments: Patient reports they are able to walk 2 flights of stairs or 3-4 city blocks at a moderate pace without any significant SOB or CP. Day of Surgery assessments + Possibility of assessed - ruled out by patient's provided history. Review of Systems + wheezing (chronic stable) Pertinent negatives: productive cough; SOB; recent cold/flu; fever; chest pain; palpitations; orthopnea; pedal edema; PND; previous transfusion; bleeding problems; syncope; dizziness; hard of hearing; vision loss; dentures/partials and chipped/loose teeth Comments: Pt denies s/s of UTI (frequency, urgency, burning) PAT Summary and Plans Cardiac risk classification of planned procedure: low cardiac risk. Preoperative assessment status: complete. Additional comments: Aleah Gerber is a 66 y.o. female who is being evaluated prior to undergoing a low cardiac risk surgery. Revised Cardiac Risk Index factors are (none) for a total RCRI of 0 out of 6. Functional capacity is 4-6 METs. Obstructive sleep apnea (VIOLETTE) screening status is HIGH RISK due to known VIOLETTE. VIOLETTE order set initiated for DOS. This assessment was performed via telephone. Therefore the physical exam has been deferred to the day of surgery team. The patient was provided with preoperative instructions for their medications. Patient instructions were provided by telephone and electronically sent via [employer]. Patient verbalized understanding of preoperative plan. Blood bank needs for day of procedure: No type and screen needed Pending labs/tests include: POC Glucose This patient has a history of VTE and is at low risk of recurrent VTE per 2012 ACCP criteria. Not on AC TPAP complete Preoperative evaluation performed by Sofie Avendano NP on 05/11/22 at 1:07 PM . Patient Active Problem List Diagnosis ??? Malignant 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, estrogen receptor negative(CMS/HCC) (HCC) ??? 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) ??? Dehydration ??? Hypokalemia ??? Diarrhea ??? Leg weakness, bilateral ??? Acute pulmonary embolism (CMS/HCC) (HCC) ??? Encounter for person encountering health services ??? Antineoplastic chemotherapy induced anemia ??? Drug-induced polyneuropathy (CMS/HCC) (HCC) ??? Gait difficulty ??? Nipple discharge in female ??? Hypomagnesemia ??? BRCA2 gene mutation positive in female ??? Atypical glandular cells of undetermined significance (YRN) on cervical Pap smear ??? Asthma-COPD overlap syndrome (CMS/HCC) (HCC) ??? Encounter for follow-up examination after completed treatment for malignant neoplasm ??? History of breast cancer ??? Personal history of irradiation ??? VIOLETTE (obstructive sleep apnea) ??? Asthma ??? Amaurosis fugax ??? Essential hypertension ??? Hyperlipidemia ??? Neuropathy (CMS/HCC) ??? Paresthesia of left arm Past Medical History: Diagnosis Date ??? Anemia ??? Anxiety ??? Asthma ??? At risk for sleep apnea Per assessment, STOP BANG=3. Pt reports her PCP wants to do a Sleep Study in the near future. ??? BRCA2 positive ??? Breast cancer (CMS/HCC) (HCC) 2017 left breast cancer ??? Breast cancer (CMS/HCC) (HCC) 2017 ??? Colon cancer (CMS/HCC) (HCC) Distal transverse Colon CA s/p Left hemicolectomy 12/27/2017; No chemo and no radiation ??? Colon cancer (CMS/HCC) (HCC) 2017 ??? Colon polyps ??? COPD (chronic obstructive pulmonary disease) (CMS/HCC) (HCC) ??? Depression ??? DVT (deep vein thrombosis) in 05/2017 with multiple Pulmonary Emboli ??? DVT (deep venous thrombosis) (CMS/HCC) (HCC) 05/2018 RLE DVT ??? Former smoker Quit 2016 ??? History of chemotherapy ??? History of ileus 12/2017 ??? History of radiation therapy ??? Hypercholesteremia ??? Hypertension ??? Leg swelling Right lower extremity--known DVT ??? Lower extremity edema ??? Memory loss Some short-term memory loss ??? Mucositis ??? Obesity ??? VIOLETTE (obstructive sleep apnea) 11/12/2019 doesn't use cpap ??? Personal history of other medical treatment Hepatic steatosis ??? Personal history of other medical treatment History of BRCA2 mutation ??? SOB (shortness of breath) ??? SOB (shortness of breath) 2018 2/2 chemotherapy ??? TIA (transient ischemic attack) 2007 ??? Type 2 diabetes mellitus (HCC) ??? Vascular disease Past Surgical History: Procedure Laterality Date ??? BLADDER SUSPENSION 2010 ??? BREAST BIOPSY Left 11/12/2017 ??? BREAST BIOPSY Right 2008 Benign ??? BREAST BIOPSY Right 04/13/2022 ??? BREAST BIOPSY Left 11/11/2018 re-excision ??? BREAST BIOPSY 01/14/2018 ??? BREAST LUMPECTOMY 2017 ??? COLONOSCOPY 2017 ??? HEMICOLECTOMY Left 12/27/2017 Laparoscopic left hemicolectomy ??? HYSTERECTOMY W/ BILATERAL SALPINGOOPHORECTOMY Bilateral 02/13/2019 ??? INCONTINENCE SURGERY 2007 ??? INGUINAL HERNIA REPAIR Right 1970 ??? MASTECTOMY, PARTIAL Left 01/14/2018 Biopsy Breast Needle Localization partial mastectomy (L), Biopsy [place] Lymph Node With Lymphoscintigraphy (L), Insertion Port A Cath (R) with ultrasound and fluroscopy ??? PORT REMOVAL 04/09/2019 ??? PORTACATH PLACEMENT 01/2018 right upper chest ??? PORTACATH PLACEMENT Right 2018 ??? TUBAL LIGATION 1992 ??? VAGINAL DELIVERY OB History 4 Para 3 Term 2 1 AB 1 Living 2 SAB IAB Ectopic Multiple Live Births Obstetric Comments Post menopause Allergies Allergen Reactions ??? Oxaliplatin Swollen tongue Throat swelling ??? Tetanus Vaccines And Toxoid Swelling and Rash Med List Status: Nurse Complete Set By: Mirella Gentile RN at 05/11/2022 9:55 AM Taking? Last Dose Start Date End Date Provider albuterol HFA (PROVENTIL HFA,VENTOLIN HFA,PROAIR HFA) 90 mcg/actuation inhaler 03/20/2022 03/22/21 05/11/22 Cristobal Dong MD Inhale 2 puffs every 6 (six) hours as needed for wheezing Patient taking differently: Inhale 2 puffs every 6 (six) hours as needed for wheezing or shortness of breath ALPRAZolam (XANAX) 0.25 mg tablet Past Month 11/07/17 -- Mary Good MD amLODIPine (NORVASC) 5 mg tablet 05/11/2022 08/31/21 -- Mary Good MD diphenhydrAMINE (BENADRYL) 25 mg capsule 05/11/2022 -- -- Mary Good MD DULoxetine DR (CYMBALTA) 60 mg capsule 05/10/2022 05/07/20 -- Mary Good MD fluticasone propion-salmeteroL (ADVAIR DISKUS) 500-50 mcg/dose diskus inhaler 05/11/2022 06/05/21 -- Cristobal Dong MD Inhale 1 puff 2 (two) times a day Rinse mouth with water after use. Do not swallow. Patient taking differently: Inhale 1 puff 2 (two) times a day Rinse mouth with water after use. Do not swallow. fluticasone propionate (FLONASE) 50 mcg/actuation nasal spray 05/11/2022 10/18/21 -- Mary Good MD levothyroxine (SYNTHROID) 75 mcg tablet 05/11/2022 01/26/22 -- Mary Good MD nortriptyline (PAMELOR) 10 mg capsule 05/10/2022 09/13/21 -- Mary Good MD omeprazole (PriLOSEC) 20 mg capsule Past Month 11/07/21 -- Mary Good MD ondansetron (ZOFRAN) 4 mg tablet Past Month 02/22/21 -- Mary Good MD propranolol LA (INDERAL LA) 60 mg 24 hr capsule 05/11/2022 10/26/19 -- Mary Good MD topiramate (TOPAMAX) 25 mg tablet 05/11/2022 09/12/21 -- Mary Good MD traMADoL (ULTRAM) 50 mg tablet Past Month 01/11/21 -- Mary Good MD -- No current facility-administered medications for this encounter. Current Outpatient Medications: ??? albuterol HFA (PROVENTIL HFA,VENTOLIN HFA,PROAIR HFA) 90 mcg/actuation inhaler ??? ALPRAZolam (XANAX) 0.25 mg tablet ??? amLODIPine (NORVASC) 5 mg tablet ??? diphenhydrAMINE (BENADRYL) 25 mg capsule ??? DULoxetine DR (CYMBALTA) 60 mg capsule ??? fluticasone propion-salmeteroL (ADVAIR DISKUS) 500-50 mcg/dose diskus inhaler ??? fluticasone propionate (FLONASE) 50 mcg/actuation nasal spray ??? levothyroxine (SYNTHROID) 75 mcg tablet ??? nortriptyline (PAMELOR) 10 mg capsule ??? omeprazole (PriLOSEC) 20 mg capsule ??? ondansetron (ZOFRAN) 4 mg tablet ??? propranolol LA (INDERAL LA) 60 mg 24 hr capsule ??? topiramate (TOPAMAX) 25 mg tablet ??? traMADoL (ULTRAM) 50 mg tablet Social History Tobacco Use Smoking Status Former ??? Packs/day: 1.00 ??? Types: Cigarettes ??? Start date: 1972 ??? Quit date: 2014 ??? Years since quittin.0 Smokeless Tobacco Never Alcohol Use: Not At Risk ??? Frequency of Alcohol Consumption: Never ??? Average Number of Drinks: Patient does not drink ??? Frequency of Binge Drinking: Never Substance and Sexual Activity Drug Use Never Family History Problem Relation Age of Onset ??? Prostate cancer Father 60 ??? Pancreatic cancer Sister 40 ??? Other (pancreatic cancer) Sister ??? Liver cancer Maternal Grandmother 80 ??? Heart attack Mother 70 ??? Stent Mother ??? Heart attack Maternal Grandfather ??? Heart attack Paternal Grandmother ??? Breast cancer Father's Sister ??? No Known Problems Brother ??? No Known Problems Sister ??? No Known Problems Sister ??? No Known Problems Brother ??? No Known Problems Brother ??? Anesthesia problems Neg Hx There were no vitals filed for this visit. Relevant diagnostics: ECG(s): 07/26/20 Echocardiogram(s): 08/07/18 DOPPLER/COLOR FOLOW DOPPLER COMMENTS: No AR seen, No MR seen, no , no MS, trace TR, normal PV. Diastolic function: Normal SUMMARY: LV size is normal. LVEF 65% (GLS -22%). Wall motion is normal. RV size and function are normal. Diastolic function: normal. No significant valve disease. Unable to estimate PASP due to lack of adequate TR jet. IVC is not visualized. Stress test(s): N/A Cardiac catheterization(s): N/A PFT(s): 11/07/21 There is a mild restrictive ventilatory defect. However, measurement of lung volumes is suggested to confirm this if clinically indicated. Compared with study dated 03/21/2021, there has been no significant interval change. Vascular studies: US carotid 08/18/20 IMPRESSION: No significant stenosis in either internal carotid artery. Other: CT chest abd pelvis 01/27/22 IMPRESSION: Bone windows show no suspicious lytic or blastic lesions. IMPRESSION: ?? 1. No CT evidence of metastatic disease. 2. Groundglass is a left upper lobe which could be inflammatory in nature, possibly organizing pneumonia. Attention on follow-up imaging is recommended. MRI cervical spine 08/30/18 IMPRESSION: 1. No evidence of metastatic disease in the cervical or thoracic spine. 2. Mild multilevel degenerative changes without evidence of high-grade spinal canal stenosis or abnormal cord signal. PT: No results found for requested labs within last 720 hours. INR: No results found for requested labs within last 720 hours. APTT: No results found for requested labs within last 720 hours. Hgb A1C: No results found for requested labs within last 720 hours. CBC RBC: No results found for requested labs within last 720 hours. RDW: No results found for requested labs within last 720 hours. MCHC: No results found for requested labs within last 720 hours. MCH: No results found for requested labs within last 720 hours. MCV: No results found for requested labs within last 720 hours. Hct: No results found for requested labs within last 720 hours. Hgb: No results found for requested labs within last 720 hours. WBC: No results found for requested labs within last 720 hours. MPV: No results found for requested labs within last 720 hours. Platelets: No results found for requested labs within last 720 hours. RDW CV: No results found for requested labs within last 720 hours. RDW Sd: No results found for requested labs within last 720 hours. BMP Glucose: No results found for requested labs within last 720 hours. Calcium: No results found for requested labs within last 720 hours. Sodium: No results found for requested labs within last 720 hours. Potassium: No results found for requested labs within last 720 hours. CO2: No results found for requested labs within last 720 hours. Chloride: No results found for requested labs within last 720 hours. BUN: No results found for requested labs within last 720 hours. Creatinine: No results found for requested labs within last 720 hours. Ele index score: 100 DOS Physical Exam Medical history, medications, and allergies reviewed. Attestation: With today's edits, I endorse the findings of the anesthesia pre-evaluation assessment dated: 05/11/2022. Airway Exam: Mallampati: III TM distance: normal Jaw ROM: full Cardiovascular Exam: Rate: regular Rhythm: regular Pulmonary Exam: LCTA Dental Exam: Missing Current state: Patient's current state is cooperative and interactive. Anesthesia Plan ASA 2 My patient is approved for the Anesthesia Controlled Medication protocol when under care of a SUPERVISOR SAWMILL Planned anesthesia: General and PNB - single shot Truncal: PECS I and PECS II Induction: Induction: intravenous. Postoperative Plan: Postoperative administration opioids intended. No postoperative mechanical ventilation intended. Informed Consent: Anesthesia plan and risks discussed with patient. Plan and Consent Comments: General anesthesia and airway placement, including risks, were discussed with the patient. All questions answered. Patient feels like she has been having intermittent upper airway 'wheezing.' not in lungs' Sats 100% and lungs clear. Patient has non urgent appt with pulmonology in a few months. Will continue to monitor. Low likelihood to interfere with anesthetic today. Consent and Attending signature: I and/or my designee have discussed the anesthesia plan, benefits, possible alternatives, parental presence at time of induction (if indicated), and clinically relevant risks that may include dental injury, unintentional awareness, and/or other complications. The patient and/or parent/legal guardian understand, and agree to proceed. All questions answered. NURSE NURSE documented in this encounter Plan of Treatment Not on file documented as of this encounter Procedures Procedure Name Priority Date/Time Associated Diagnosis Comments NV AN PROCEDURE PLACEHOLDER Routine 05/22/2022 8:13 AM SURG NURSE NV AN ELECTIVE SUPRAGLOTTIC AIRWAY Routine 05/22/2022 8:13 AM SURG NURSE NV AN PROCEDURE PLACEHOLDER Routine 05/22/2022 7:57 AM SURG NURSE NV AN PROCEDURE PLACEHOLDER Routine 05/22/2022 7:56 AM SURG NURSE NV AN PROCEDURE PLACEHOLDER Routine 05/22/2022 7:55 AM SURG NURSE NV AN PROCEDURE PLACEHOLDER Routine 05/22/2022 7:54 AM SURG NURSE documented in this encounter Results * NV AN ELECTIVE SUPRAGLOTTIC AIRWAY, NV AN PROCEDURE PLACEHOLDER (05/22/2022 8:13 AM SURG NURSE) Narrative Mariam López CRNA - 05/22/2022 8:13 AM SURG NURSE Mariam López CRNA ? 05/22/2022 ??8:13 AM Airway Patient location: OR Urgency: elective Indications for airway management: anesthesia Difficult airway: no Staff: Supervising provider: Wisam Bledsoe MD Placed by: SUPERVISOR SAWMILL: Mariam López CRNA Emergent airway documentation: Risks and benefits discussed: yes Consent obtained: yes Consent given by: patient Airway prep: Preoxygenated: yes Patient position: sniffing MILS maintained throughout: yes Mask difficulty assessment: 0 - not attempted Spontaneous ventilation during airway: absent Sedation level during airway: GA Final airway details: Final airway type: supraglottic airway Final supraglottic airway: IGel SGA size: 5 Number of attempts: 1 us Wisam Bledsoe MD ANESTHESIA ORDERABLES Final Res ult * NV AN PROCEDURE PLACEHOLDER (05/22/2022 7:57 AM SURG NURSE) Allyson Woods MD - 05/22/2022 7:57 AM SURG NURSE Santiago Salvador MD ? 05/22/2022 ??7:57 AM Peripheral Block Patient location during procedure: pre-op holding Reason for block: post-op pain management per surgeon request Ultrasound image in chart or stored: yes Block type: single shot Laterality: left Block type: PECS I Staff: Supervising provider: Allyson Goldberg MD Placed by: Resident: Santiago Salvador MD Procedure prep: Preprocedure checklist: patient identified, procedure contraindications assessed, site marked, procedure consent, surgical consent, IV checked, risks, benefits and alternatives discussed, monitors and equipment checked and timeout performed Patient position: supine Procedure performed while patient: sedate with meaningful contact Monitoring: ECG, blood pressure and oximetry Supplemental O2: nasal cannula Prep solution: chlorhexidine/alcohol PPE: provider hat/mask, sterile gloves and sterile probe cover and gel Peripheral nerve block: Technique: ultrasound guided Needle type: insulated, short-bevel and echogenic Needle gauge: 22 G Needle length: 80 mm Injection assessment: injection made incrementally with constant monitoring, local visualized surrounding nerve on ultrasound, negative aspiration for heme, no paresthesias noted, normal resistance to injection and see flowsheet for medication details Assessment: Block success: full evaluation pending Events: patient tolerated procedure well with no complications Wisam Bledsoe MD ANESTHESIA ORDERABLES Final Res ult * NV AN PROCEDURE PLACEHOLDER (05/22/2022 7:56 AM SURG NURSE) Allyson Woods MD - 05/22/2022 7:56 AM SURG NURSE Santiago Salvador MD ? 05/22/2022 ??7:57 AM Peripheral Block Patient location during procedure: pre-op holding Reason for block: post-op pain management per surgeon request Ultrasound image in chart or stored: yes Block type: single shot Laterality: left Block type: PECS II Staff: Supervising provider: Allyson Goldberg MD Placed by: Resident: Santiago Salvador MD Procedure prep: Preprocedure checklist: patient identified, procedure contraindications assessed, site marked, procedure consent, surgical consent, IV checked, risks, benefits and alternatives discussed, monitors and equipment checked and timeout performed Patient position: supine Procedure performed while patient: sedate with meaningful contact Monitoring: ECG, oximetry and blood pressure Supplemental O2: nasal cannula Prep solution: chlorhexidine/alcohol PPE: provider hat/mask, sterile gloves and sterile probe cover and gel Peripheral nerve block: Technique: ultrasound guided Needle type: insulated, short-bevel and echogenic Needle gauge: 22 G Needle length: 80 mm Injection assessment: injection made incrementally with constant monitoring, local visualized surrounding nerve on ultrasound, negative aspiration for heme, no paresthesias noted, normal resistance to injection and see flowsheet for medication details Assessment: Block success: full evaluation pending Events: patient tolerated procedure well with no complications Wisam Bledsoe MD ANESTHESIA ORDERABLES Final Res ult * NV AN PROCEDURE PLACEHOLDER (05/22/2022 7:55 AM SURG NURSE) Allyson Woods MD - 05/22/2022 7:55 AM Santiago Avelar MD ? 05/22/2022 ??7:56 AM Peripheral Block Patient location during procedure: pre-op holding Reason for block: post-op pain management per surgeon request Ultrasound image in chart or stored: yes Block type: single shot Laterality: right Block type: PECS I Staff: Supervising provider: Allyson Goldberg MD Placed by: Resident: Santiago Salvador MD Procedure prep: Preprocedure checklist: patient identified, procedure contraindications assessed, site marked, procedure consent, surgical consent, IV checked, risks, benefits and alternatives discussed, monitors and equipment checked and timeout performed Patient position: supine Procedure performed while patient: sedate with meaningful contact Monitoring: ECG, blood pressure and oximetry Supplemental O2: nasal cannula Prep solution: chlorhexidine/alcohol PPE: provider hat/mask, sterile gloves and sterile probe cover and gel Peripheral nerve block: Technique: ultrasound guided Needle type: insulated, short-bevel and echogenic Needle gauge: 22 G Needle length: 80 mm Injection assessment: injection made incrementally with constant monitoring, local visualized surrounding nerve on ultrasound, negative aspiration for heme, no paresthesias noted, normal resistance to injection and see flowsheet for medication details Assessment: Block success: full evaluation pending Events: patient tolerated procedure well with no complications Wisam Bledsoe MD ANESTHESIA ORDERABLES Final Res ult * NV AN PROCEDURE PLACEHOLDER (05/22/2022 7:54 AM SURG NURSE) Allyson Woods MD - 05/22/2022 7:54 AM Santiago Avelar MD ? 05/22/2022 ??7:55 AM Peripheral Block Patient location during procedure: pre-op holding Reason for block: post-op pain management per surgeon request Ultrasound image in chart or stored: yes Block type: single shot Laterality: right Block type: PECS II Staff: Supervising provider: Allyson Goldberg MD Placed by: Resident: Santiago Salvador MD Procedure prep: Preprocedure checklist: patient identified, procedure contraindications assessed, site marked, procedure consent, surgical consent, IV checked, risks, benefits and alternatives discussed, monitors and equipment checked and timeout performed Patient position: supine Procedure performed while patient: sedate with meaningful contact Monitoring: ECG, oximetry and blood pressure Supplemental O2: nasal cannula Prep solution: chlorhexidine/alcohol PPE: provider hat/mask, sterile gloves and sterile probe cover and gel Peripheral nerve block: Technique: ultrasound guided Needle type: insulated, short-bevel and echogenic Needle gauge: 22 G Needle length: 80 mm Injection assessment: injection made incrementally with constant monitoring, local visualized surrounding nerve on ultrasound, negative aspiration for heme, no paresthesias noted, normal resistance to injection and see flowsheet for medication details Assessment: Block success: full evaluation pending Events: patient tolerated procedure well with no complications Wisam Bledsoe MD ANESTHESIA ORDERABLES Final Res ult documented in this encounter Visit Diagnoses Not on filedocumented in this encounter Administered Medications Inactive Administered Medications - up to 3 most recent administrations Medication Order MAR Action Action Date Dose Rate Site bupivacaine (MARCAINE) 0.25 % (2.5 mg/mL) preservative free injection epidural, As needed, Starting on Sat05/22/22 at 0739, Anesthesia Intra-op Given 05/22/2022 7:44 AM SURG NURSE 10 mL Given 05/22/2022 7:43 AM SURG NURSE 15 mL Given 05/22/2022 7:40 AM SURG NURSE 10 mL ceFAZolin (ANCEF) injection intravenous, Administer over 3 Minutes, As needed, Starting on Sat05/22/22 at 0805, Anesthesia Intra-op Given 05/22/2022 8:05 AM SURG NURSE 2,000 mg dexAMETHasone (DECADRON) 4 mg/mL injection intravenous, Administer over 2 Minutes, As needed, Starting on Sat05/22/22 at 0806, Anesthesia Intra-op Given 05/22/2022 8:06 AM SURG NURSE 4 mg ePHEDrine injection intravenous, Administer over 5 Minutes, As needed, Starting on Sat05/22/22 at 0857, Anesthesia Intra-op Given 05/22/2022 9:28 AM SURG NURSE 5 mg Given 05/22/2022 9:18 AM SURG NURSE 10 mg Given 05/22/2022 8:57 AM SURG NURSE 10 mg fentaNYL (SUBLIMAZE) preservative free injection intravenous, As needed, Starting on Sat05/22/22 at 0730, Anesthesia Intra-op Given 05/22/2022 10:21 AM SURG NURSE 100 mc g Given 05/22/2022 8:22 AM SURG NURSE 100 mcg Given 05/22/2022 7:57 AM SURG NURSE 100 mcg Lactated Ringer's (LR) infusion 30 mL/hr, intravenous, Continuous, Starting on Sat05/22/22 at 0630 New Bag 05/22/2022 9:36 AM SURG NURSE Rate/Dose Verify 05/22/2022 7:47 AM SURG NURSE 30 mL/h r Rate/Dose Change 05/22/2022 7:47 AM SURG NURSE 30 mL/h r lidocaine (cardiac) (XYLOCAINE) preservative free injection intravenous, As needed, Starting on Sat05/22/22 at 0757, Anesthesia Intra-op, Indications: Ventricular ArrhythmiasIndications:Ventricular Arrhythmias Given 05/22/2022 7:57 AM SURG NURSE 40 mg midazolam (VERSED) 1 mg/mL preservative free injection intravenous, Administer over 2 Minutes, As needed, Starting on Sat05/22/22 at 0730, Anesthesia Intra-op Given 05/22/2022 7:30 AM SURG NURSE 2 mg ondansetron (ZOFRAN) injection intravenous, Administer over 2 Minutes, As needed, Starting on Sat05/22/22 at 0928, Anesthesia Intra-op Given 05/22/2022 9:28 AM SURG NURSE 4 mg phenylephrine ([place]-SYNEPHRINE) 1 mg/10 mL (100 mcg/mL) in sodium chloride 0.9% (premix) intravenous, As needed, Starting on Sat05/22/22 at 0819, Anesthesia Intra-op Given 05/22/2022 9:29 AM SURG NURSE 100 mcg Given 05/22/2022 9:18 AM SURG NURSE 100 mcg Given 05/22/2022 8:57 AM SURG NURSE 100 mcg propofoL (DIPRIVAN) 10 mg/mL IV intravenous, As needed, Starting on Sat05/22/22 at 0759, Anesthesia Intra-op Given 05/22/2022 7:59 AM SURG NURSE 200 mg documented in this encounter Care Teams Social Work Case Manager Relationship Specialty Start Date End Date Dat Benito DO [address] [place] [address] PCP - General Internal Medicine 09/28/21 Aft, Kianna Machado MD PhD [address] [place] [address] Surgeon Surgical Oncology 11/22/17 Santiago Gilbert MD [address] [place] [address] Special Tester Gastroenterology 11/22/17 Abbi Ventura MD [address] [place] [address] [address] [place] [address] Medical Oncologist/Mycologist Medical Oncology 12/03/18 Montse Thompson MD [address] [place] [address] [address] [place] [address] Consulting Physician Gynecologic Oncology 12/03/18 Lela Hardy MD PhD [address] [place] [address] [address] [place] [address] Radiation Oncologist Radiation Oncology 12/23/18 Trena Obando MD [address] [place] [address] Consulting Physician Neurology 09/18/21 documented as of this encounter
--- OUTSIDE RECORDS SUMMARY | 2024-04-24 13:37 | XMS_ITS | Encounter Summary ---
Author Organization [facility] Healthcare Address [address] [place] [address] Care Team Providers Care Physical Integration Practitioner Name Role Phone Aft, Kianna Machado MD PhD Unavailable [phone] Santiago Gilbert MD Unavailable [phone] Abbi Ventura MD Unavailable Montse Thompson MD Unavailable [phone] Lela Hardy MD PhD Unavailable [phone] Trena Obando MD Unavailable [phone] Dat Benito DO Primary Care Provider [phone] Reason for Referral * MRI/CAT/PET Scan (Routine) - Closed Specialty Diagnoses / Procedures [facility] To Contact Radiology Diagnoses Malignant neoplasm of upper-inner quadrant of right female breast, unspecified estrogen receptor status (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) Procedures CT Chest Abdomen Pelvis W Contrast Abbi Ventura MD [address] [facility] [address] [place] [address] Phone: tel: fax: [facility] Referral ID Status Reason Start Date Expiration Date Visits Re quested Visits Authorized [id number] Closed 06/25/2022 07/25/2023 1 1 TRIMMER Reason for Visit * MRI/CAT/PET Scan (Routine) - Closed Specialty Diagnoses / Procedures Referred By [facility] t Referred To Contact Radiology Diagnoses Malignant neoplasm of upper-inner quadrant of right female breast, unspecified estrogen receptor status (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 No evidence of metastatic or recurrent [...] Willie Bullock M.D. Narrative 07/03/2022 2:04 PM LIME TRIMMER EXAMINATION: ??Computed tomography of the chest, abdomen [...] Electronically signed by: Willie Bullock M.D. Abbi Ventrua MD IMG CT PROCEDURES Final Result * (ABNORMAL) POCT creatinine (07/03/2022 1:35 PM LIME TRIMMER) Creatinine POC 1.4(H) 0.6 - 1.1 mg/dL 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) Malignant neoplasm of descending colon documented in this encounter Administered Medications Inactive Administered Medications - up to 3 most recent administrations Medication Order MAR Action Action Date Dose Rate Site ioversoL (OPTIRAY 350) injection 88 mL 88 mL, intravenous, Once in imaging, contrast, Starting on Sat07/03/22 at 1338, For 1 dose Contrast Given 07/03/2022 1:40 PM LIME TRIMMER 88 mL documented in this encounter Orders Medications Ordered That [place] ht Not Have Been Administered Count Last Ordered Date First Ordered Date ioversoL (OPTIRAY 350) injection 88 mL 1 documented in this encounter Care Teams Physical Integration Practitioner Relationship Specialty Start Date End Date Dat Benito DO [address] [place] [address] PCP - General Internal Medicine 09/28/21 Aft, Kianna Machado MD PhD [address] [place] [address] Surgeon Surgical Oncology 11/22/17 Santiago Gilbert MD [address] [place] [address] Museum Assistant Gastroenterology 11/22/17 Abbi Ventura MD [address] [facility] [address] [place] [address] Medical Oncologist/Coding Director Medical Oncology 12/03/18 Montse Thompson MD [address] [facility] [address] [place] [address] Consulting Physician Gynecologic Oncology 12/03/18 Lela Hardy MD PhD [address] [facility] [address] [place] [address] Radiation Oncologist Radiation Oncology 12/23/18 Trena Obando MD [address] [place] [address] Consulting Physician Neurology 09/18/21 documented as of this encounter
--- OUTSIDE RECORDS SUMMARY | 2024-04-24 13:37 | XMS_ITS | Encounter Summary ---
Author Organization [facility] Address [address] [place] [address] Phone Care Team Providers Care Rubber Stamp Die Inspector Name Role Phone Aft, Kianna Machado MD PhD Unavailable [phone] Santiago Gilbert MD Unavailable [phone] Dmitry Sanderson MD Unavailable [phone] Abbi Ventura MD Unavailable Montse Thompson MD Unavailable [phone] Lela Hardy MD PhD Unavailable [phone] Trena Obando MD Unavailable [phone] Dat Benito DO Primary Care Provider [phone] Encounter Details Date Type Department Care Team (Late st Contact Info) Description 05/15/2022 Orders Only [facility] Oncology [address] [place] [address] Patricia Anderson, RN Malignant neoplasm of upper-inner quadrant of left [...] on file 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 WEED THINNER Gender Identity Not on file Sexual Orientation [...] Ordered Date ONCBCN CLINIC APPOINTMENT REQUEST 1 023 documented in this encounter Care Teams Rubber Stamp Die Inspector Relationship Specialty Start Date End Date Dat Benito DO [address] [place] [address] PCP - General Internal Medicine 09/28/21 Aft, Kianna Machado MD PhD [address] [place] [address] Surgeon Surgical Oncology 11/22/17 Santiago Gilbert MD [address] [place] [address] Dot Net Developer Gastroenterology 11/22/17 Dmitry Sanderson MD [address] [place] [address] Referring Physician Colon and Rectal Surgery 12/03/1805/06 Abbi Ventura MD [address] [place] [address] [address] [place] [address] Medical Oncologist/Yarn Handler Medical Oncology 12/03/18 Montse Thompson MD [address] [facility] [address] [place], [place] [id number] Consulting Physician Gynecologic Oncology 12/03/18 Lela Hardy MD PhD [address] [facility] [address] [place], [place] [id number] Radiation Oncologist Radiation Oncology 12/23/18 Trena Obando MD [address] [place], [place] [address] Consulting Physician Neurology 09/18/21 documented as of this encounter
--- OUTSIDE RECORDS SUMMARY | 2024-04-24 13:37 | XMS_ITS | Encounter Summary ---
Author Organization [facility] Address [address] [place] [address] Phone Care Team Providers Care Clinical Case Manager Name Role Phone Aft, Kianna Machado MD PhD Unavailable [phone] Santiago Gilbert MD Unavailable [phone] Abbi Ventura MD Unavailable Montse Thompson MD Unavailable [phone] Lela Hardy MD PhD Unavailable [phone] Trena Obando MD Unavailable [phone] Dat Benito DO Primary Care Provider [phone] Encounter Details Date Type Department Care Team (Late st Contact Info) Description 06/13/2022 12:30 PM ON SITE SOIL EVALUATOR Office Visit [facility] Oncology [address] [place] [address] Abbi Ventura MD [address] [facility] [address] [place], [place] [id number] Malignant neoplasm of upper-inner quadrant of left [...] on file 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 ON SITE SOIL EVALUATOR Gender Identity Not on file Sexual Orientation Not on file documented as of this encounter Last Filed Vital Signs Vital Sign Reading Time Taken Comments Blood Pressure 147/78 06/13/2022 12:50 PM ON SITE SOIL EVALUATOR Pulse 92 06/13/2022 12:50 PM ON SITE SOIL EVALUATOR Temperature 36.2 ??C (97.2 ??F) 06/13/2022 12:[address] Respiratory Rate 16 06/13/2022 12:50 PM ON SITE SOIL EVALUATOR Oxygen Saturation 94% 06/13/2022 12:50 PM ON SITE SOIL EVALUATOR Inhaled Oxygen Concentration - - Weight 109.8 kg (242 lb) 06/13/2022 12:50 PM ON SITE SOIL EVALUATOR Height - - Body Mass Index 35.74 06/04/2022 3:03 PM ON SITE SOIL EVALUATOR documented in this encounter Progress Notes * Abbi Ventura MD - 06/13/2022 12:30 PM CST The Patient Identifying Data: [...] breast invasive ductal carcinoma - ER negative MT negative Her 2 negative diagnosed 03/2022 TREATMENT [...] ~ 1.4 cm, Grade 3, ER 0, MT 0, HER-2 IHC 0. Partial mastectomy and [...] 04/13/22 showed invasive ductal carcinoma. ER negative MT negative Her 2 negative Bilateral mastectomy 05/22/22 showed invasive ductal carcinoma measuring 5 mm in the right breast, grade 2/3, negative margins, no cancer in 8 lymph nodes in the breast, no cancer in 2 axillary sentinel nodes, left breast had focal ductal cytological atypia with microcalcification, favor treatment effect, no invasive cancer, three negative nodes Interval History Recovering well from surgery. However, having difficulty looking at her chest wall and she took a peek at her chest wall for the first time this morning after surgery. C/o mild discomfort near lower sternal area. Review of Systems Review of systems positive for symptoms as per interval history. All other review of systems negative. Objective Vitals: Vitals BP 147/78 (BP Location: Left arm) Pulse 92 Temp 36.2 ??C (97.2 ??F) (Temporal) Resp 16 Wt 109.8 kg (242 lb) LMP (LMP Unknown) SpO2 94% BMI 35.74 kg/m?? PERFORMANCE STATUS: ECOG 1 SKIN: Normal [...] supraclavicular, submandibular adenopathy. BREAST: s/p bilateral mastectomy. Has sutures medial end of incision site. Healing well Lab/Radiology/Diagnostic Review: Hematology Lab History Some [...] CO2 25 02/01/2022 BUNSER 21 02/01/2022 GLUCOSE 179 05/23/2022 CREATININE 1.25 (H) 02/01/2022 CALCIUM 9.6 02/01/2022 [...] some flowsheets but are not being displayed. Hospital #: [id number] Taken:05/22/2022 Received:05/22/2022 Reported: 05/30/2022 Patient Type: [facility] OP In Bed Service: Oncology Location: [place] [address] Physician(s): Hortencia Warren M.D. David Yablonsky, DO Jorge G. [...] malignancy (0/3) - No invasive carcinoma identified hxl/05/25/2022 09:24 By this signature, I attest that the above diagnosis is based upon my personal examination of the slides(and/or other material indicated in the diagnosis). Mason Ramsey M.D., Ph.D. Report Electronically Reviewed and Signed Out By Mason Ramsey M.D., Ph.D. 05/30/2022 09:38:14 Microscopic Description and Comment: Microscopic examination substantiates the above cited diagnosis. The prior biopsy [id number] has been reviewed. In part B, the area of invasive carcinoma is small and showed some overlapping features with DCIS, hence, immunohistochemical stains (single antibody procedures with appropriate controls) were performed for CK5/6 and p63. p63 shows lack of myoepithelial cell staining around [...] support the above diagnosis. Yesica Prescott M.D. Recent labs, radiology and pathology reviewed in [facility] ASSESSMENT: Stage I [id number] right breast cancer -ER negative MT negative Her 2 negative- reviewed pathology result with patient. I am ordering Mammaprint to decide on adjuvant chemotherapy. 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 Ground glass opacity on CT chest - likely inflammation. Observe as she is asymptomatic - due for CTchest 07/2022 PLAN: F/u Mammaprint result. If it comes back low risk, we will hold off chemotherapy. If result comes back as high risk, plan is to administer CMF x 6 cycles ROV 3 weeks to discuss Mammaprint results Refer to psych for counseling as patient is having difficulty coping with bilateral mastectomy CEA level 3 weeks Check Ca 125 to screen for primary peritoneal carcinomatosis CT CAP with contrast in 07/2022 F/u Dr. Gilbert, her local scoring machine operator, regarding screening colonoscopy Aleah Gerber will follow up as directed above, she was encouraged to call in the interim with questions or concerns. We will continue to monitor and review for side effects from treatment. Abbi Ventura MD fitting supervisor Division of Oncology Section of Medical Oncology [facility] [employer] Hammerer Helper completed by using Fuze Direct speaking software, therefore, transcriptionvariances may occur. SITE SOIL EVALUATOR documented in this encounter Plan of Treatment Not on file documented as of this encounter Results * CEA (07/04/2022 12:41 PM ON SITE SOIL EVALUATOR) CEA 1.6 <=5.0 ng/mL LEVAR MICHELLE Comment: Interpretive Data: Reference Range: Non-Smokers: 0.0 ? 5.0 ng/mL Smokers: 0.0 ? 6.5 ng/mL The Bo CEA assay procedure was used. Results from different manufacturers or methods may not be comparable. Serial testing should be performed using the same method. Current interpretive data was last revised 2021. Blood 07/04/2022 12:4 1 PM ON SITE SOIL EVALUATOR 07/04/2022 1:52 PM ON SITE SOIL EVALUATOR us Abbi Ventura MD LAB BLOOD ORDERABLES Final Resul t LEVAR MICHELLEH [facility] Department [place] [address] documented in this encounter Visit Diagnoses Diagnosis Malignant 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, estrogen receptor negative (HCC)- Primary documented in this encounter Orders Consult Count Last Ordered Date First Orde red Date ANCILLARY ONCOLOGY SERVICES REQUEST 1 07/09 Appointment Requests Count Last Ordered Date Fi rst Ordered Date ONCBCN CLINIC APPOINTMENT REQUEST 2 023 06/13/2022 ONCBCN LAB APPOINTMENT 1 07/04/2022 documented in this encounter Care Teams Clinical Case Manager Relationship Specialty Start Date End Date Dat Benito DO [address] [place] [address] PCP - General Internal Medicine 09/28/21 Kianna Bunch MD PhD [address] [place] [address] Surgeon Surgical Oncology 11/22/17 Santiago Gilbert MD [address] [place] [address] Revival Clerk Gastroenterology 11/22/17 Abbi Ventura MD [address] [place] [address] [address] [place] [address] Medical Oncologist/Modeling And Simulation Analyst Medical Oncology 12/03/18 Montse Thompson MD [address] [facility] [address] [place] [address] Consulting Physician Gynecologic Oncology 12/03/18 Lela Hardy MD PhD [address] [facility] [address] [place] [address] Radiation Oncologist Radiation Oncology 12/23/18 Trena Obando MD [address] [place] [address] Consulting Physician Neurology 09/18/21 documented as of this encounter
--- OUTSIDE RECORDS SUMMARY | 2024-04-24 13:37 | XMS_ITS | Encounter Summary ---
Author Organization [facility] Address [address] [place] [address] Phone Care Team Providers Care Ordained Minister Name Role Phone AftKianna MD PhD Unavailable [phone] Santiago Gilbert MD Unavailable [phone] Dmitry Sanderson MD Unavailable [phone] Abbi Ventura MD Unavailable Montse Thompson MD Unavailable [phone] Lela Hardy MD PhD Unavailable [phone] Trena Obando MD Unavailable Dat Benito DO Primary Care Provider [phone] Reason for Visit * Reason Comments Consult Encounter Details Date Type Department Care Team (Late st Contact Info) Description 05/09/2022 3:00 PM RETAIL ASSISTANT STORE MANAGER Office Visit [facility] Surgery [address] [place] [address] [place] [address] Kianna Bunch MD PhD [address] [place] [address] History of breast cancer (Primary Dx) Social History Tobacco Use Types [...] on file 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 RETAIL ASSISTANT STORE MANAGER Gender Identity Not on file Sexual Orientation Not on file documented as of this encounter Last Filed Vital Signs Vital Sign Reading Time Taken Comments Blood Pressure - - Pulse - - Temperature - - Respiratory Rate - - Oxygen Saturation - - Inhaled Oxygen Concentration - - Weight 108.9 kg (240 lb) 05/09/2022 2:43 PM RETAIL ASSISTANT STORE MANAGER Height 175.3 cm (5' 9 ) 05/09/2022 2:43 PM RETAIL ASSISTANT STORE MANAGER Body Mass Index 35.44 05/09/2022 2:43 PM RETAIL ASSISTANT STORE MANAGER documented in this encounter Progress Notes * Aft, Kianna Machado MD PhD - 05/09/2022 3:00 PM CST PATIENT NAME: Aleah Gerber DATE OF : [...] positive and VUS in BRIP1 and NBN. [employer] My risk showed no mutation in [facility] [...] sleep apnea, BRCA2 positive,Breast cancer (CMS/HCC) (HCC) (2017), Breast cancer (CMS/HCC) (HCC) (2017), Colon cancer (CMS/HCC) ([facility]), Colon cancer (CMS/HCC) (HCC) (2017), Colon polyps, COPD (chronic obstructive pulmonary disease) (CMS/HCC) ([facility]), Depression, DVT (deep vein thrombosis) in (05/2017), [...] history of Acute respiratory failure requiring reintubation ([facility]/HCC) ([facility]), Atypical ductal hyperplasia of breast, Awareness under anesthesia, BRCA1 negative, BRCA1 positive,BRCA2 negative, Breast cyst, Breast injury, Delayed emergence from general anesthesia, Diabetes mellitus type I (HCC), Ductal hyperplasia of breast, Endometrial cancer (CMS/HCC) ([facility]), Fibrocystic breast, Hard to intubate, Lobular carcinoma in situ of breast, Malignant hyperthermia, Motion sickness, Ovarian cancer (HCC), Pneumothorax, PONV (postoperative nausea and vomiting), Postoperative delirium, Pseudocholinesterase deficiency, Smoking, or Thyroid cancer (CMS/HCC) ([facility]). PAST SURGICAL HISTORY: She has a past [...] plan outlined above. Kianna Bunch MD, PhD [place] ASSISTANT STORE MANAGER documented in this encounter Plan of Treatment Not on file documented as of this encounter Visit Diagnoses Diagnosis History of breast cancer- Primary Personal history of malignant neoplasm of breast documented in this encounter Discontinued Medications Medication Sig Discontinue Reason Start Date End Da te biotin 5,000 mcg tablet,disintegrating 5,000 mcg Therapy completed 05/09/19 levothyroxine (SYNTHROID) 88 mcg tablet Take 88 mcg by mouth daily Therapy completed 08/01/2021 05/09/2022 psyllium seed, with sugar, (FIBER ORAL) Take by mouth Therapy completed 05/09/2022 Rybelsus 14 mg tablet Therapy completed 10/24/2020 05/09/19 documented as of this encounter Care Teams Ordained Minister Relationship Specialty Start Date End Date Dat Benito DO [address] [place] [address] PCP - General Internal Medicine 09/28/21 Kianna Bunch MD PhD [address] [place] [address] Surgeon Surgical Oncology 11/22/17 Santiago Gilbert MD [address] [place] [address] Vest Baster Gastroenterology 11/22/17 Dmitry Sanderson MD [address] [place], [place] [id number] Referring Physician Colon and Rectal Surgery 12/03/1805/06 Abbi Ventura MD [address] [facility] [address] [place] [address] Medical Oncologist/Garment Fitter Medical Oncology 12/03/18 Montse Thompson MD [address] [facility] [address] [place] [address] Consulting Physician Gynecologic Oncology 12/03/18 Lela Hardy MD PhD [address] [facility] [address] [place] [address] Radiation Oncologist Radiation Oncology 12/23/18 Trena Obando MD [address] [place], [place] [id number] Consulting Physician Neurology 09/18/21 documented as of this encounter
--- OUTSIDE RECORDS SUMMARY | 2024-04-24 13:38 | XMS_ITS | Encounter Summary ---
Author Organization [facility] Address [address] [place] [address] Phone Care Team Providers Care Elementary Reading Tutor Name Role Phone Aft, Kianna Machado MD PhD Unavailable [phone] Santiago Gilbert MD Unavailable [phone] Dmitry Sanderson MD Unavailable [phone] Abbi Ventura MD Unavailable Montse Thompson MD Unavailable [phone] Lela Hardy MD PhD Unavailable [phone] Trena Obando MD Unavailable [phone] Dat Benito DO Primary Care Provider [phone] Encounter Details Date Type Department Care Team (Late st Contact Info) Description 10/06/2021 Telephone [facility] Oncology [address] [place] [address] Uriel Corral Social History Tobacco Use Types [...] on file 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 ENTRY DRIVER OPERATOR Gender Identity Not on file Sexual Orientation Not on file documented as of this encounter Miscellaneous Notes * Telephone Encounter - Uriel Corral - 10/06/2021 10:[address] Ventura, Can you contact Dr. Gilbert her local GI and get last colonoscopy report. Ask his office when they are going to do it again given her genetic mutations and h/o colon cancer. This RN attempted to call Dr. Gilbert's office , telephone number listed is no longer a working number. Attempted to call patient, left voicemail message for patient to return call to discuss. Uriel Corral RN documented in this encounter Plan of Treatment Not on file documented as of this encounter Visit Diagnoses Not on filedocumented in this encounter Care Teams Elementary Reading Tutor Relationship Specialty Start Date End Date Dat Benito DO [address] [place] [address] PCP - General Internal Medicine 09/28/21 Aft, Kianna Machado MD PhD [address] [place] [address] Surgeon Surgical Oncology 11/22/17 Santiago Gilbert MD [address] [place] [address] Ion Implant Machine Operator Gastroenterology 11/22/17 Dmitry Sanderson MD [address] [place] [address] Referring Physician Colon and Rectal Surgery 12/03/1805/06 Abbi Ventura MD [address] [facility] [address] [place] [address] Medical Oncologist/Concession Cashier Medical Oncology 12/03/18 Montse Thompson MD [address] [facility] [address] [place] [address] Consulting Physician Gynecologic Oncology 12/03/18 Lela Hardy MD PhD [address] [facility] [address] [place], [place] [address] Radiation Oncologist Radiation Oncology 12/23/18 Trena Obando MD [address] [place], [place] [address] Consulting Physician Neurology 09/18/21 documented as of this encounter
--- OUTSIDE RECORDS SUMMARY | 2024-04-24 13:38 | XMS_ITS | Encounter Summary ---
Author Organization [facility] Healthcare Address [address] [place] [address] Care Team Providers Care Biofuels Production Manager Name Role Phone Aft, Kianna Machado MD PhD Unavailable [phone] Sanitago Gilbert MD Unavailable [phone] Dmitry Sanderson MD Unavailable [phone] Abbi Ventura MD Unavailable Montse Thompson MD Unavailable [phone] Lela Hardy MD PhD Unavailable [phone] Trena Obando MD Unavailable [phone] Dat Benito DO Primary Care Provider [phone] Reason for Referral * MRI/CAT/PET Scan (Routine) - Closed Specialty Diagnoses / Procedures Referred By Contac t Referred To Contact Radiology Diagnoses Malignant 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, 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) Procedures MRI Breast Bilateral W WO Contrast Abbi Ventura MD [address] [place] [address] Phone: tel: fax: [facility] Referral ID Status Reason Start Date Expiration Date Visits Re quested Visits Authorized [id number] Closed 02/01/2022 03/03/2023 1 1 ARIAL TRAINEE Reason for Visit * MRI/CAT/PET Scan (Routine) - Closed Specialty Diagnoses / Procedures Referred By Contac t Referred To Contact Radiology Diagnoses Malignant 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, 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) Procedures MRI Breast Bilateral W WO Contrast Abbi Ventura MD [address] [facility] [address] [place] [address] Phone: tel: fax: [facility] Referral ID Status Reason Start Date Expiration Date Visits Re quested Visits Authorized [id number] Closed 02/01/2022 03/03/2023 1 1 Encounter Details Date Type Department Care Team (Latest Contact Info) Description 03/23/2022 8:00 AM ACTUARIAL TRAINEE - 03/23/2022 11:59 PM ACTUARIAL TRAINEE Hospital Encounter [facility] [address] [place] [id number] Malignant 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, 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) (HCC); Malignant neoplasm of descending colon (CMS/HCC) [...] on file 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 ACTUARIAL TRAINEE Gender Identity Not on file Sexual Orientation Not on file documented as of this encounter Medications at Time of Discharge ALPRAZolam (XANAX) 0.25 mg tablet Take 1 tablet (0.25 mg total) by mouth 3 (three) times a day as needed for anxiety 11/07/2017 amLODIPine (NORVASC) 5 mg tabletIndications :hypertension Take 1 tablet (5 mg total) by mouth every morning 08/31/[address] (CYMBALTA) 60 mg capsuleIndication s:Neuropathic [...] for wheezing 1 each 5 03/22/2021 3 biotin 5,000 mcg tablet,disintegra ting 5,000 mcg 3 fluticasone propion-salmetero L (ADVAIR DISKUS) 500-50 mcg/dose diskus inhaler Inhale 1 puff 2 (two) times a day Rinse mouth with water after use. Do not swallow. 60 each 5 06/05/2021 3 levothyroxine (SYNTHROID) 88 mcg tablet Take 88 mcg by mouth daily 08/01/2021 3 LORazepam (ATIVAN) 0.5 mg tablet Take 1 tablet (0.5mg total) by mouth 30 minutes prior to MRI. 2 tablet 01/15/2022 3 psyllium seed, with sugar, (FIBER ORAL) Take by mouth 3 Rybelsus 14 mg tablet 10/24/2020 3 documented as of this encounter Discharge Disposition Disposition Code Departure Means Destination Discharge to home or self care documented in this encounter Miscellaneous Notes * Result Encounter Note - Abbi Ventura MD - 03/23/2022 8:00 AM CST Please arrange for MRI guided biopsy and office visit after the biopsy results are back if positivefor cancer. 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 New 1.0 cm non-mass enhancement in the upper outer RIGHT breast is moderately suspicious for malignancy. 2. Stable posttreatment changes of LEFT breast conservation therapy. The method of initial detection of finding was screening MRI (Smri). OVERALL FINAL ASSESSMENT: SUSPICIOUS. ??BI-RADS Category 4B: Moderate suspicion for malignancy. RECOMMENDATION: MRI-guided biopsy of non-mass enhancement in the upper outer RIGHT breast. Dr. Damico (breast radiology fellow) was present and participated in interpretation. Dictated by: Selina Vergara M.D. The radiology attending physician has personally reviewed this study, and had reviewed and/or edited this written report and agrees with it. Electronically signed by: Yoana Ash M.D. Narrative 03/23/2022 12:31 PM ACTUARIAL TRAINEE EXAMINATION: 1. MRI EXAMINATION OF THE BREASTS WITH AND WITHOUT CONTRAST 2. 3D POST PROCESSING ON A DEDICATED 3D WORKSTATION HISTORY: 66-year-old female with history of left breast carcinoma treated with breast conservation therapy in 2018. ??BRCA2 positive. ? DATE OF LAST MENSTRUAL PERIOD: Postmenopausal] TECHNIQUE: MRI examination of the breasts per breast tumor protocol with and without gadolinium contrast. ??A dedicated breast imaging coil was used. ??The images were transferred to a breast CAD system for 3D post processing and contrast kinetics analysis. ?? CONTRAST: Gadoterate meglumine, 20 ml COMPARISON: Breast [...] in the visualized portions of either axilla. Procedure Note Yoana Ash MD - 03/23/2022 EXAMINATION: 1. MRI EXAMINATION OF THE BREASTS [...] it. Electronically signed by: Yoana Ash M.D. Abbi Ventura MD [facility] MRI PROCEDURES Final Result documented in this [...] intravenous, Once in imaging, contrast, Starting on Sat03/23/22 at 0848, For 1 dose Contrast Given 03/23/2022 8:49 AM ACTUARIAL TRAINEE 20 mL documented in this encounter Orders Medications Ordered That [place] ht Not Have Been Administered Count Last Ordered Date First Ordered Date gadoterate meglumine injection 20 mL 1 03/06 documented in this encounter Care Teams Biofuels Production Manager Relationship Specialty Start Date End Date Dat Benito DO [address] [place] [address] PCP - General Internal Medicine 09/28/21 Aft, Kianna Machado MD PhD [address] [place] [address] Surgeon Surgical Oncology 11/22/17 Santiago Gilbert MD [address] [place] [address] Powder Carrier Gastroenterology 11/22/17 Dmitry Sanderson MD [address] [place] [address] Referring Physician Colon and Rectal Surgery 12/03/1805/06 Abbi Ventura MD [address] [facility] [address] [place] [address] Medical Oncologist/Auto Mechanic Supervisor Medical Oncology 12/03/18 Montse Thompson MD [address] [facility] [address] [place] [address] Consulting Physician Gynecologic Oncology 12/03/18 Lela Hardy MD PhD [address] [facility] [address] [place] [address] Radiation Oncologist Radiation Oncology 12/23/18 Trena Obando MD [address] [place] [address] Consulting Physician Neurology 09/18/21 documented as of this encounter
--- OUTSIDE RECORDS SUMMARY | 2024-04-24 13:38 | XMS_ITS | Encounter Summary ---
Author Organization [facility] [employer] [facility] Address [address] [place] [address] Phone Care Team Providers Care Choker Hooker Name Role Phone Aft, Kianna Machado MD PhD Unavailable [phone] Santiago Gilbert MD Unavailable Dmitry Sanderson MD Unavailable [phone] Abbi Ventura MD Unavailable Montse Thompson MD Unavailable [phone] Lela Hardy MD PhD Unavailable [phone] Trena Obando MD Unavailable [phone] Dat Benito DO Primary Care Provider [phone] Encounter Details Date Type Department Care Team (Late st Contact Info) Description 11/07/2021 Orders Only [facility] Pulmonary [address] [facility] Advanced Medicine 8th [place] [address] [place] [id number] Tamra Zapata RMA Social History Tobacco Use Types Packs/Day Years [...] on file 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 omeprazole (PriLOSEC) 20 mg capsuleIndication s:Stress Ulcer Prophylaxis Take 1 capsule (20 mg total) by mouth daily as needed 11/07/2021 fluticasone propionate (FLONASE) 50 mcg/actuation nasal sprayIndications: Allergic Rhinitis Administer 1 spray into each nostril as needed 10/18/2021 added in this encounter Care Teams Choker Hooker Relationship Specialty Start Date End Date Dat Benito DO [address] [place] [address] PCP - General Internal Medicine 09/28/21 Aft, Kianna Machado MD PhD [address] [place] [address] Surgeon Surgical Oncology 11/22/17 Santiago Gilbert MD [address] [place] [address] Permit Agent Gastroenterology 11/22/17 Dmitry Sanderson MD [address] [place] [address] Referring Physician Colon and Rectal Surgery 12/03/1805/06 Abbi Ventura MD [address] [facility] [address] [place] [address] Medical Oncologist/Major Account Representative Medical Oncology 12/03/18 Montse Thompson MD [address] [facility] [address] [place] [address] Consulting Physician Gynecologic Oncology 12/03/18 Lela Hardy MD PhD [address] [facility] [address] [place] [address] Radiation Oncologist Radiation Oncology 12/23/18 Trena Obando MD [address] [place], [place] [id number] Consulting Physician Neurology 09/18/21 documented as of this encounter
--- OUTSIDE RECORDS SUMMARY | 2024-04-24 13:38 | XMS_ITS | Encounter Summary ---
Author Organization [facility] Address [address] [place] [address] Phone Care Team Providers Care Cut Off Tender Glass Name Role Phone Aft, Kianna Machado MD PhD Unavailable [phone] Santiago Gilbert MD Unavailable Dmitry Sanderson MD Unavailable [phone] Abbi Ventura MD Unavailable Montse Thompson MD Unavailable [phone] Lela Hardy MD PhD Unavailable [phone] Trena Obando MD Unavailable [phone] Dat Benito DO Primary Care Provider [phone] Encounter Details Date Type Department Care Team (Late st Contact Info) Description 09/29/2021 Telephone [facility] Oncology [address] [place] [address] Uriel Corral Social History Tobacco Use Types [...] on file 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 Patient verbalizes understanding and agrees to plan, she denies any questions/concerns at this time. Uriel Corral RN documented in this encounter Plan of Treatment Not on file documented as of this encounter Visit Diagnoses Not on filedocumented in this encounter Care Teams Cut Off Tender Glass Relationship Specialty Start Date End Date Dat Benito DO [address] [place] [address] PCP - General Internal Medicine 09/28/21 Aft, Kianna Machado MD PhD [address] [place] [address] Surgeon Surgical Oncology 11/22/17 Santiago Gilbert MD [address] [place] [address] Charter Bus Driver Gastroenterology 11/22/17 Dmitry Sanderson MD [address] [place] [address] Referring Physician Colon and Rectal Surgery 12/03/1805/06 Abbi Ventura MD [address] [place] [address] [address] [place] [address] Medical Oncologist/Spindle Carver Medical Oncology 12/03/18 Montse Thompson MD [address] [facility] [address] [place], [place] [id number] Consulting Physician Gynecologic Oncology 12/03/18 Lela Hardy MD PhD [address] [facility] [address] [place], [place] [id number] Radiation Oncologist Radiation Oncology 12/23/18 Trena Obando MD [address] [place], [place] [address] Consulting Physician Neurology 09/18/21 documented as of this encounter
--- OUTSIDE RECORDS SUMMARY | 2024-04-24 13:38 | XMS_ITS | Encounter Summary ---
Author Organization [facility] Address [address] [place] [address] Phone Care Team Providers Care Project Builder Name Role Phone Aft, Kianna Machado MD PhD Unavailable [phone] Santiago Gilbert MD Unavailable [phone] Dmitry Sanderson MD Unavailable [phone] Abbi Ventura MD Unavailable Montse Thompson MD Unavailable [phone] Lela Hardy MD PhD Unavailable [phone] Trena Obando MD Unavailable [phone] Dat Benito DO Primary Care Provider [phone] Reason for Referral * (Routine) - Closed Specialty Diagnoses / Procedures Referred By Contac t Referred To Contact Diagnoses Asthma-COPD overlap syndrome (HCC) Procedures Pulmonary Function Test -[facility] Adult PFT Lab- [facility]-8D; Spirometry, Oxygen Assessment Titration Cristobal Dong MD [address] [place] [address] Phone: tel: fax: Referral ID Status Reason Start Date Expiration Date Visits Re quested Visits Authorized [id number] Closed 03/21/2021 04/20/2022 1 1 Reason for Visit * (Routine) - Closed Specialty Diagnoses / Procedures Referred By Contac t Referred To Contact Diagnoses Asthma-COPD overlap syndrome (HCC) Procedures Pulmonary Function Test -[facility] Adult PFT Lab- [facility]-8D; Spirometry, Oxygen Assessment Titration Cristobal Dong MD [address] [place] [address] Phone: tel: fax: Referral ID Status Reason Start Date Expiration Date Visits Re quested Visits Authorized [id number] Closed 03/21/2021 04/20/2022 1 1 Encounter Details Date Type Department Care Team (Latest Contact Info) Description 11/07/2021 2:20 PM CDT - 11/07/2021 11:59 PM CDT Hospital Encounter [facility] Pulmonary [address] [facility] [address] [place] [address] Asthma-COPD overlap syndrome (CMS/HCC) (HCC) Discharge Disposition: Discharge to home [...] file 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 Do not swallow. 60 each 5 06/05/2021 3 gabapentin (NEURONTIN) 400 mg capsule Take 1 capsule (400 mg total) by mouth 3 (three) times a day 90 capsule 04/05/2021 2 levothyroxine (SYNTHROID) 88 mcg tablet Take 88 mcg by mouth daily 08/01/2021 3 LORazepam (ATIVAN) 0.5 mg tablet Take 1 tablet (0.5mg total) by mouth 30 minutes prior to MRI. 2 tablet 04/03/2021 2 psyllium seed, with sugar, (FIBER ORAL) Take by mouth 3 Rybelsus 14 mg tablet 10/24/2020 3 documented as of this encounter Discharge Disposition Disposition Code Departure Means Destination Discharge to home or self care documented in this encounter Plan of Treatment Not on file documented as of this encounter Procedures Procedure Name Priority Date/Time Associated Diagnosis Comments PULMONARY FUNCTION TEST (PFT) Routine 11/07/2021 2:43 PM CDT Asthma-COPD overlap syndrome (CMS/HCC) (HCC) documented in this encounter Results * Pulmonary Function Test - (11/07/2021 2:43 PM CDT) FVC PRE 2.51 L [facility] FVC %PRE PRED 69 % [facility] FEV1 PRE 2.01 L [facility] FEV1 %PRE PRED 71 % [facility] FEV1/FVC PRE 80.1 % [facility] Anatomical Region Laterality Modality PFT 11/07/2021 2:25 PM CDT Narrative 11/09/2021 11:18 AM CDT [facility] Division of Pulmonary & Critical Care Medicine [address] [place] [address]; [place] [facility]; [place], [place] ??[address]; [phone] Pulmonary Function Laboratory Pulmonary Stress Test Simple/Oxygen Assessment Patient: Alaeh Gerber Date: No visit date found. : 1955 Ht: 69 IN Wt: 240 LBS Time (min) Distance (ft)/ Peters O2 L/M SpO2 HR Manny* BP FEV1 % Pred Rest: ??RA 100 75 0 128/69 2.01 71 % ? Walk/Bike: 1 ??RA 93 87 0.5 ? 2 ??RA 97 100 1 ? 3 ??RA 96 104 3 ? 4 ??RA 97 106 3 ? 5 ??RA 95 104 3 ? 6 min 0 sec ??RA 97 101 4 ? Recovery: 1 ??RA 99 100 4 127/72 1.89 67% 3 ??RA 96 94 2 ?*Manny rate of perceived exertion (1-10 dyspnea scale) ??[place], CHEST 2003; 123:1408 Walk Test Summary: Six Minute Walk Distance: 1100 ft Six-minute Walk Work [distance (m) x body wt (kg)]: 74755 kg.m (normal >60,000kg.m) Oxygen required to maintain SpO2 greater than 90% during six minutes of walkin L/M Comments: NO STOPS/ O2A Interpretation: Breathing room air, SpO2 is normal at rest and during exercise sufficient to increase pulse from 75 to 106 b/min, SpO2 is falls but remains normoxemic. On this basis, SpO2 is adequate at rest breathing room air and while walking breathing room air. This level of exercise is associated with no significant change of FEV1. ?? Juan uLis Dior M.D. By signing this report, the attending pulmonary physician certifies that he/she has personally reviewed and interpreted the graphic and numerical data associated with this pulmonary function study and has reviewed and /or edited a preliminary draft report and agrees with the written final report. PFT performed at:->[facility] Adult PFT Lab- CAM-8D Procedure:->Spirometry Procedure:->Oxygen Assessment Titration Cristobal Dong MD PFT ORDERABLES Final Result documented in this encounter Visit Diagnoses Diagnosis Asthma-COPD overlap syndrome (HCC) documented in this encounter Care Teams Project Builder Relationship Specialty Start Date End Date Dat Benito DO [address] [place] [address] PCP - General Internal Medicine 09/28/21 Aft, Kianna Machado MD PhD [address] [place] [address] Surgeon Surgical Oncology 7/20/18 Santiago Gilbert MD [address] [place] [address] Refractory Products Supervisor Gastroenterology 11/22/17 Dmitry Sanderson MD [address] [place] [address] Referring Physician Colon and Rectal Surgery 12/03/1805/06 Abbi Ventura MD [address] [facility] [address] [place] [address] Medical Oncologist/Outboard Motors Experimental Mechanic Medical Oncology 12/03/18 Montse Thompson MD [address] [facility] [address] [place] [address] Consulting Physician Gynecologic Oncology 12/03/18 Lela Hardy MD PhD [address] [facility] [address] [place] [address] Radiation Oncologist Radiation Oncology 12/23/18 Trena Obando MD [address] [place] [address] Consulting Physician Neurology 09/18/21 documented as of this encounter
--- OUTSIDE RECORDS SUMMARY | 2024-04-24 13:38 | XMS_ITS | Encounter Summary ---
Author Organization [facility] Address [address] [place] [address] Phone Care Team Providers Care Classifier Name Role Phone Aft, Kianna Machado MD PhD Unavailable [phone] Santiago Gilbert MD Unavailable [phone] Dmitry Sanderson MD Unavailable [phone] Abbi Ventura MD Unavailable Montse Thompson MD Unavailable [phone] Lela Hardy MD PhD Unavailable [phone] Trena Obando MD Unavailable [phone] Dat Benito DO Primary Care Provider [phone] Reason for Referral * MRI/CAT/PET Scan (Routine) - Closed Specialty Diagnoses / Procedures Referred By Contac t Referred To Contact Radiology Diagnoses Malignant 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, estrogen receptor negative (HCC) Procedures MRI Guided Breast Biopsy Right Abbi Ventura MD [address] [place] [address] Phone: tel: fax: [address] [address] Referral ID Status Reason Start Date Expiration Date Visits Re quested Visits Authorized [id number] Closed 03/23/2022 04/22/2023 1 1 ORAL MINISTRIES PROFESSOR Encounter Details Date Type Department Care Team (Late st Contact Info) Description 03/23/2022 Orders Only [facility] Oncology [address] [place] [address] Abbi Ventura MD [address] [place] [address] Malignant neoplasm of upper-inner quadrant of left [...] on file 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 PASTORAL MINISTRIES PROFESSOR Gender Identity Not on file Sexual Orientation Not on file documented as of this encounter Plan of Treatment Not on file documented as of this encounter Results * MRI Guided Breast Biopsy Right (04/13/2022 8:06 AM PASTORAL MINISTRIES PROFESSOR) Anatomical Region Laterality Modality Breast Right Magnetic Resonan ce 04/13/2022 1:22 PM PASTORAL MINISTRIES PROFESSOR Addenda Addendum by Nina Lawrence MD on 04/18/2022 5:00 PM PASTORAL MINISTRIES PROFESSOR This addendum is being issued to add [...] to see Dr. Abbi Ventura on 04/26/2022. ORAL MINISTRIES PROFESSOR ADDENDUM: Pathology from biopsy of the right [...] 04/26/2022. Electronically signed by: Nina Lawrence M.D. Impressions 04/13/2022 1:37 PM PASTORAL MINISTRIES PROFESSOR Successful MRI-guided vacuum-assisted core needle biopsy of [...] it. Electronically signed by: Nina Lawrence M.D. Narrative 04/13/2022 1:37 PM PASTORAL MINISTRIES PROFESSOR EXAMINATION: RIGHT BREAST VACUUM-ASSISTED CORE BIOPSY UTILIZING MRI GUIDANCE, ONE LESION/SITE; PLACEMENT OF A BIOPSY TISSUE MARKER CLIP; AND RIGHT UNILATERAL FULL FIELD DIGITAL POST-PROCEDURE MAMMOGRAM WITH TOMOSYNTHESIS HISTORY: ??Abnormal breast MRI. ??66-year-old female with personal history of LEFT breast cancer treated with breast conservation therapy. ??The patient is reportedly a BRCA2 gene mutation carrier. On screening breast MRI, there is a new area of clumped non-mass enhancement in the RIGHT upper outer breast spanning 1.0, which was considered of moderate suspicion for malignancy. ??MR guided core needle biopsy is requested to evaluate for malignancy. COMPARISON: Breast MRI dated 03/23/2022. Contrast: Gadoterate meglumine, 20 ml PROCEDURE AND FINDINGS: The risks, potential benefits, and reasonable alternatives of the procedure were discussed with the patient. ??Her questions were answered, and written informed consent was obtained. The patient was placed in the prone position on the MRI table. After sterile preparation of the skin, the breast was placed in a compression grid. ??Magnetic resonance imaging was performed with a dedicated breast imaging coil before and after intravenous administration of gadolinium, from which subtracted images were obtained. One percent (1%) lidocaine was utilized for local anesthesia at the skin puncture site, and 2% lidocaine with epinephrine was utilized for deeper local anesthesia and hemostasis about the biopsy site. ??A small skin incision was made with a #11 scalpel blade. ??A 9 gauge Suros introducer needle and sheath were then advanced through the skin incision to the target lesion from a lateral approach utilizing MR guidance. ??Additional magnetic resonance images were obtained to confirm appropriate sheath positioning. Subsequently, a 9 gauge Suros vacuum assisted biopsy needle was advanced through the sheath and a total of 18 tissue cores were obtained. ??Post biopsy magnetic resonance images confirm biopsy site changes in the expected position. ??A TriMark cork-shaped tissue marker clip was then [...] M.D., was present throughout the entire procedure. ??Dr. Rhoda Penn (radiology fellow) was present and participated in the procedure. ??Dr. Dale Davis (radiology supervisor) was present and participated in the procedure. Procedure Note Nina Lawrence MD - 04/13/2022 EXAMINATION: RIGHT BREAST VACUUM-ASSISTED CORE BIOPSY UTILIZING [...] participated in the procedure. Dr. Dale Davis (radiology supervisor) was present and participated in the procedure. IMPRESSION: Successful MRI-guided vacuum-assisted core needle biopsy of [...] it. Electronically signed by: Nina Lawrence M.D. Abbi Ventura MD IM MRI PROCEDURES Edited Result - Final documented in this encounter Visit Diagnoses Diagnosis Malignant 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, estrogen receptor negative (HCC)- Primary Malignant 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, estrogen receptor negative (HCC) documented in this encounter Care Teams Classifier Relationship Specialty Start Date End Date Dat Benito DO [address] [place] [address] PCP - General Internal Medicine 09/28/21 Aft, Kianna Machado MD PhD [address] [place] [address] Surgeon Surgical Oncology 11/22/17 Santiago Gilbert MD [address] [place] [address] Burglar Alarm Superintendent Gastroenterology 11/22/17 Dmitry Sanderson MD [address] [place] [address] Referring Physician Colon and Rectal Surgery 12/03/1805/06 Abbi Ventura MD [address] [place] [address] [address] [place] [address] Medical Oncologist/Kiln Tester Medical Oncology 12/03/18 Montse Thompson MD [address] [place], [place] [address] Consulting Physician Gynecologic Oncology 12/03/18 Lela Hardy MD PhD [address] [place], [place] [address] Radiation Oncologist Radiation Oncology 12/23/18 Trena Obando MD [address] [place], [place] [id number] Consulting Physician Neurology 09/18/21 documented as of this encounter
--- OUTSIDE RECORDS SUMMARY | 2024-04-24 13:38 | XMS_ITS | Encounter Summary ---
Author Organization [facility] Address [address] [place] [address] Care Team Providers Care Accountant Clerk Name Role Phone Aft, Kianna Machado MD PhD Unavailable [phone] Santiago Gilbert MD Unavailable [phone] Dmitry Sanderson MD Unavailable [phone] Abbi Ventura MD Unavailable Montse Thompson MD Unavailable [phone] Lela Hardy MD PhD Unavailable [phone] Trena Obando MD Unavailable [phone] Dat Benito DO Primary Care Provider [phone] Encounter Details Date Type Department Care Team (Late st Contact Info) Description 02/01/2022 3:10 PM CDT Lab [facility] [address] [place] [address] Malignant neoplasm of upper-inner quadrant of left [...] on file 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 PULLER OUT Gender Identity Not on file Sexual Orientation Not on file documented as of this encounter Plan of Treatment Not on file documented as of this encounter Procedures Procedure Name Priority Date/Time Associated Diagnosis Comments EGFR Routine 02/01/2022 3:28 PM CDT Malignant 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, 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) (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) DIFFERENTIAL AUTO Routine 02/01/2022 3:2 8 PM CDT Malignant 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, 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) (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) CBC WITH AUTO DIFFERENTIAL Routine 02/01/2022 3:28 PM CDT Malignant 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, 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) (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) CA 125 Routine 02/01/2022 3:28 PM CDT Malignant 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, 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) (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) T3, FREE Routine 02/01/2022 3:28 PM CDT Malignant 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, 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) (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) TSH Routine 02/01/2022 3:28 PM CDT Malignant 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, 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) (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) T4, FREE Routine 02/01/2022 3:28 PM CDT Malignant 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, 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) (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 73 m2 [facility] Comment: Interpretive Data Reference Interval Normal ?>/= [...] interpretive data was last reviewed 2021. Blood 02/01/2022 3:28 PM CDT 02/01/2022 3:28 PM CDT us Abbi Ventura MD LAB BLOOD ORDERABLES Final Resul t [facility] [place] [address] * Differential, auto (02/01/2022 3:28 PM CDT) Neutrophil abs 4.7 1.7 - 6.5 K/cumm [facility] Comment:Testing performed by : [address] [address] Imm gran abs 0.0 0.0 - 0.1 K/cumm [facility] Lymphocyte abs 1.8 0.8 - 3.3 K/cumm [facility] Monocyte abs 0.4 0.2 - 0.8 K/cumm [facility] Eosinophil abs 0.3 0.0 - 0.5 K/cumm [facility] Basophil abs 0.1 0.0 - 0.1 K/cumm [facility] Neutrophil pct 64.9 % [facility] Comment: Interpretive Data Percent cell count reference ranges are not reported, since discordance with absolute values may lead to misinterpretation of CBC data. Current Interpretive Data was last revised on 2017. Imm gran pct 0.3 % [facility] Comment: Interpretive Data Percent cell count reference ranges are not reported, since discordance with absolute values may lead to misinterpretation of CBC data. Current Interpretive Data was last revised on 2017. Lymphocyte pct 24.1 % [facility] Comment: Interpretive Data Percent cell count reference ranges are not reported, since discordance with absolute values may lead to misinterpretation of CBC data. Current Interpretive Data was last revised on 2017. Monocyte pct 5.3 % [facility] Comment: Interpretive Data Percent cell count reference ranges are not reported, since discordance with absolute values may lead to misinterpretation of CBC data. Current Interpretive Data was last revised on 2017. Eosinophil pct 4.4 % [facility] Comment: Interpretive Data Percent cell count reference ranges are not reported, since discordance with absolute values may lead to misinterpretation of CBC data. Current Interpretive Data was last revised on 2017. Basophil pct 1.0 % [facility] Comment: Interpretive Data Percent cell count reference ranges are not reported, since discordance with absolute values may lead to misinterpretation of CBC data. Current Interpretive Data was last revised on 2017. Blood 02/01/2022 3:28 PM CDT 02/01/2022 3:28 PM CDT us Abbi Ventura MD LAB BLOOD ORDERABLES Final Resul t [facility] [place] [address] * (ABNORMAL) CBC with auto differential (02/01/2022 3:28 PM CDT) WBC 7.3 3.8 - 9.9 K/cumm [facility] Comment:Testing performed by : [address] [address] Hgb 12.3 11.9 - 15.5 g/dL [facility] Comment:Testing performed by : [address] [address] Hct 38.3 35.6 - 45.5 % [facility] Comment:Testing performed by : [address] [address] Plt 180 150 - 400 K/cumm [facility] Comment:Testing performed by : [address] [address] MPV 9.4 9.1 - 12.3 fL [facility] RBC 4.25 3.90 - 5.20 M/cumm [facility] MCV 90.1 81.3 - 96.4 fL [facility] MCH 28.9 27.1 - 33.3 pg [facility] MCHC 32.1(L) 32.3 - 35.7 g/dL [facility] RDW CV 13.5 11.1 - 14.9 % [facility] RDW SD 43.8 35.7 - 48.1 fL [facility] NRBC abs 0.00 0.00 - 0.01 K/cumm [facility] Blood 02/01/2022 3:28 PM CDT 02/01/2022 3:28 PM CDT Abbi Ventura MD LAB BLOOD ORDERABLES Final Resul t [facility] [place] [address] * (ABNORMAL) Comprehensive metabolic panel (02/01/2022 3:28 PM CDT) Sodium 139 135 - 145 mmol/L [facility] Comment:Testing performed by : [facility], [address] [place] [address] Potassium, pl 4.2 3.3 - 4.9 mmol/L [facility] Chloride 105 97 - 110 mmol/L [facility] CO2 25 22 - 32 mmol/L [facility] Anion gap 9 2 - 15 mmol/L [facility] BUN 21 8 - 25 mg/dL [facility] Creatinine 1.25(H) 0.60 - 1.10 mg/dL [facility] Glucose 192 70 - 199 mg/dL [facility] Comment: Interpretive Data Fasting glucose >/= [...] classification and Diagnosis of Diabetes Diabetes Care 2017;40 (Suppl. 1):S11. Current interpretive data was last revised 2017. Calcium 9.6 8.5 - 10.3 mg/dL [facility] Bilirubin, total 0.3 0.1 - 1.2 mg/dL [facility] Protein, pl 7.1 6.5 - 8.5 g/dL [facility] Albumin 4.1 3.5 - 5.0 g/dL [facility] Alk phos 108 40 - 130 Units/L [facility] ALT 12 7 - 45 Units/L [facility] AST 18 10 - 45 Units/L [facility] Blood 02/01/2022 3:28 PM CDT 02/01/2022 3:28 PM CDT Abbi Ventura MD LAB BLOOD ORDERABLES Final Resul t Performing Organization Address [facility] de Phone Number [facility] [place] [address] * CEA (02/01/2022 3:28 PM CDT) Pathologist [facility] CEA 2.1 <=5.0 ng/mL [facility] Comment: Interpretive Data: Reference Range: Non-Smokers: 0.0 ? 5.0 ng/mL Smokers: 0.0 ? 6.5 ng/mL The Bo CEA assay procedure was used. Results from different manufacturers or methods may not be comparable. Serial testing should be performed using the same method. Current interpretive data was last revised 2021. Blood 02/01/2022 3:28 PM CDT 02/01/2022 6:09 PM CDT Abbi Ventura MD LAB BLOOD ORDERABLES Final Resul t Performing Organization Address [facility] de Phone Number [facility] [place] [address] * CA 125 (02/01/2022 3:28 PM CDT) CA 125 ag 9.6 0.0 - 38.0 units/mL [facility] Comment: Interpretive Data The Bo CA 125 assay procedure was used. Results from different manufacturers or methods may not be comparable. Serial testing should be performed using the same method. Blood 02/01/2022 3:28 PM CDT 02/01/2022 6:09 PM CDT Abbi Ventura MD LAB BLOOD ORDERABLES Final Resul t Performing Organization Address [facility] Co de Phone Number [facility] [place] [address] * (ABNORMAL) TSH (02/01/2022 3:28 PM CDT) Thyroid Stimulating Hormone 0.18(L) 0.30 - 4.20 mcIUnit/mL [facility] Blood 02/01/2022 3:28 PM CDT 02/01/2022 6:09 PM CDT Abbi Ventura MD LAB BLOOD ORDERABLES Final Resul t Performing Organization Address [facility] de Phone Number [facility] Department [place] [address] * T4, free (02/01/2022 3:28 PM CDT) Free T4 1.27 0.90 - 1.70 ng/dL [facility] Blood 02/01/2022 3:28 PM CDT 02/01/2022 6:09 PM CDT Abbi Ventura MD LAB BLOOD ORDERABLES Final Resul t Performing Organization Address [facility] de Phone Number [facility] [place] [address] * (ABNORMAL) T3, free (02/01/2022 3:28 PM CDT) Free T3 1.8(L) 2.0 - 4.4 pg/mL [facility] Blood 02/01/2022 3:28 PM CDT 02/01/2022 6:09 PM CDT us Abbi Ventura MD LAB BLOOD ORDERABLES Final Resul t [facility] [place] [address] documented in this encounter Visit Diagnoses Diagnosis Malignant 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, 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) Malignant neoplasm of descending colon documented in this encounter Care Teams Accountant Clerk Relationship Specialty Start Date End Date Dat Benito DO [address] [place] [address] PCP - General Internal Medicine 09/28/21 Aft, Kianna Machado MD PhD [address] [place] [address] Surgeon Surgical Oncology 11/22/17 Santiago Gilbert MD [address] [place] [address] Farmworker Fruit Gastroenterology 11/22/17 Dmitry Sanderson MD [address] [place] [address] Referring Physician Colon and Rectal Surgery 12/03/1805/06 Abbi Ventura MD [address] [place] [address] Medical Oncologist/Retail Greeting Card Merchandiser Medical Oncology 12/03/18 Montse Thompson MD [address] [place] [address] Consulting Physician Gynecologic Oncology 12/03/18 Lela Hardy MD PhD [address] [facility] [address] [place] [address] Radiation Oncologist Radiation Oncology 12/23/18 Trena Obando MD [address] [place] [address] Consulting Physician Neurology 09/18/21 documented as of this encounter
--- OUTSIDE RECORDS SUMMARY | 2024-04-24 13:38 | XMS_ITS | Encounter Summary ---
Author Organization [facility] Address [address] [place] [address] Phone Care Team Providers Care Audio/Visual Manager Name Role Phone Aft, Kianna Machado MD PhD Unavailable [phone] Santiago Gilbert MD Unavailable [phone] Dmitry Sanderson MD Unavailable [phone] Abbi Ventura MD Unavailable Montse Thompson MD Unavailable [phone] Lela Hardy MD PhD Unavailable [phone] Trena Obando MD Unavailable [phone] Dat Benito DO Primary Care Provider [phone] Encounter Details Date Type Department Care Team (Late st Contact Info) Description 04/17/2022 Telephone [facility] Oncology [address] [place] [address] Uriel Corral Social History Tobacco Use Types [...] on file 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 CAPITAL EQUIPMENT SPECIALIST Gender Identity Not on file Sexual Orientation Not on file documented as of this encounter Miscellaneous Notes * Telephone Encounter - Uriel Corral - 04/17/2022 8:55 AM CST This RN called patient with surgical pathology results from biopsy done on 04/13/22, showing Invasive Ductal Carcinoma of the right breast. Patient does verbalize understanding. Will plan to see Dr. Ventura on 04/26/22 to discuss treatment plan. Patient denies any questions/concerns at this time and agrees to call should any arise. Uriel Corral RN ----- Message from Rosalba Jones RN sent at 04/16/2022 3:19 PM CAPITAL EQUIPMENT SPECIALIST ----- Regarding: FW: Pathology Contact: ----- Message ----- From: Aleah Gerber Sent: 04/16/2022 2:17 PM CAPITAL EQUIPMENT SPECIALIST To: Chino Ventura Clinical Support Subject: Pathology Hello. Do your pathology reports come at a specific time of the day or specific day? Had Biopsy on SaturdayApril 13. Was Offered a new job, told them I would get back to them about accepting. Aleah TAL EQUIPMENT SPECIALIST TAL EQUIPMENT SPECIALIST documented in this encounter Plan of Treatment Not on file documented as of this encounter Visit Diagnoses Not on filedocumented in this encounter Care Teams Audio/Visual Manager Relationship Specialty Start Date End Date Dat Benito DO [address] [place] [address] PCP - General Internal Medicine 09/28/21 Aft, Kianna Machado MD PhD [address] [place] [address] Surgeon Surgical Oncology 11/22/17 Santiago Gilbert MD [address] [place] [address] Back Hoe Operator Gastroenterology 11/22/17 Dmitry Sanderson MD [address] [place] [address] Referring Physician Colon and Rectal Surgery 12/03/1805/06 Abbi Ventura MD [address] [facility] [address] [place] [address] Medical Oncologist/Bakelite Molder Medical Oncology 12/03/18 Montse Thompson MD [address] [facility] [address] [place] [address] Consulting Physician Gynecologic Oncology 12/03/18 Lela Hardy MD PhD [address] [facility] [address] [place], [place] [address] Radiation Oncologist Radiation Oncology 12/23/18 Trena Obando MD [address] [place], [place] [id number] Consulting Physician Neurology 09/18/21 documented as of this encounter
--- OUTSIDE RECORDS SUMMARY | 2024-04-24 13:38 | XMS_ITS | Encounter Summary ---
Author Organization [facility] Address [address] [place] [address] Phone Care Team Providers Care Ethylbenzene Converter Operator Name Role Phone Ravi Smith MD Primary Care Provider [phone] Aft, Kianna Machado MD PhD Unavailable [phone] Santiago Gilbert MD Unavailable [phone] Dmitry Sanderson MD Unavailable [phone] Abbi Ventura MD Unavailable Montse Thompson MD Unavailable [phone] Lela Hardy MD PhD Unavailable [phone] Aft, Kianna Machado MD PhD Unavailable [phone] Encounter Details Date Type Department Care Team (Late st Contact Info) Description 05/18/2021 Telephone [facility] Oncology [address] [place] [address] Uriel Corral Social History Tobacco Use Types Packs/Day Years Used Date Smoking Tobacco: Former Cigarettes 1 42 1 973 - 2015 Smokeless Tobacco: Never Alcohol Use Standard Drinks/Week Comments Not Currently 0 (1 standard drink = 0.6 oz pur e alcohol) socially AUDIT-C Answer Date Recorded Frequency of Alcohol Consumption Monthly or less 09/22/2018 Average Number of Drinks Not on file 019 Frequency of Binge Drinking Not on file 09/04 Comments No Sex and Gender Information Value Date Recorded Sex Assigned at Not on file 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 CREDIT ADMINISTRATION OFFICER Gender Identity Not on file Sexual Orientation Not on file documented as of this encounter Miscellaneous Notes * Telephone Encounter - Uriel Corral - 05/18/2021 8:08 AM CST This RN called patient with results of breast MRI with: IMPRESSION: No MR evidence of malignancy. ?? Continued annual surveillance with breast MRI and bilateral mammography recommended. Patient verbalizes understanding and denies any questions/concerns at this time. Uriel Corral RN IT ADMINISTRATION OFFICER documented in this encounter Plan of Treatment Not on file documented as of this encounter Visit Diagnoses Not on filedocumented in this encounter Care Teams Ethylbenzene Converter Operator Relationship Specialty Start Date End Date Ravi Smith MD PCP - General 11/04/17 09/27/21 Aft, Kianna Machado MD PhD [address] [place] [address] Surgeon Surgical Oncology 11/22/17 Santiago Gilbert MD [address] [place] [address] Scrum Product Owner Gastroenterology 11/22/17 Dmitry Sanderson MD [address] [place] [address] Referring Physician Colon and Rectal Surgery 12/03/1805/06 Abbi Ventura MD [address] [place] [address] [address] [place] [address] Medical Oncologist/Ground Worker Medical Oncology 12/03/18 Montse Thompson MD [address] [facility] [address] [place], [place] [id number] Consulting Physician Gynecologic Oncology 12/03/18 Lela Hardy MD PhD [address] [facility] [address] [place], [place] [id number] Radiation Oncologist Radiation Oncology 12/23/18 Aft, Kianna Machado MD PhD [address] [facility] [address] [place] [address] Surgeon Surgical Oncology 12/23/18 09/17/21 documented as of this encounter
--- OUTSIDE RECORDS SUMMARY | 2024-04-24 13:38 | XMS_ITS | Encounter Summary ---
Author Organization [facility] Healthcare Address [address] [place] [address] Care Team Providers Care Weight Shifter Name Role Phone Aft, Kianna Machado MD PhD Unavailable [phone] Santiago Gilbert MD Unavailable [phone] Dmitry Sanderson MD Unavailable [phone] Abbi Ventura MD Unavailable Montse Thompson MD Unavailable [phone] Lela Hardy MD PhD Unavailable [phone] Trena Obando MD Unavailable Dat Benito DO Primary Care Provider [phone] Reason for Referral * MRI/CAT/PET Scan (Routine) - Closed Specialty Diagnoses / Procedures Referred By Contac t Referred To Contact Radiology Diagnoses Malignant 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, 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) Procedures MRI Abdomen Pelvis W WO Contrast Abbi Ventura MD [address] [place] [address] Phone: tel: fax: [facility] Referral ID Status Reason Start Date Expiration Date Visits Re quested Visits Authorized [id number] Closed 09/21/2021 10/21/2022 1 1 Reason for Visit * MRI/CAT/PET Scan (Routine) - Closed Specialty Diagnoses / Procedures Referred By Contac t Referred To Contact Radiology Diagnoses Malignant 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, 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) Procedures MRI Abdomen Pelvis W WO Contrast Abbi Ventura MD [address] [facility] [address] [place] [address] Phone: tel: fax: [facility] Referral ID Status Reason Start Date Expiration Date Visits Re quested Visits Authorized [id number] Closed 09/21/2021 10/21/2022 1 1 Encounter Details Date Type Department Care Team (Latest Contact Info) Description 01/27/2022 10:38 AM CDT - 01/27/2022 11:59 PM CDT Hospital Encounter [facility] Radiology at [address] [address] Malignant neoplasm of upper-inner quadrant [...] on file 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 Gender Identity Not on file Sexual Orientation [...] Encounter Note - Abbi Ventura MD - 01/27/2022 11:15 AM CDT Please call patient with results documented in this encounter Plan of Treatment Not on file documented as of this encounter Procedures Procedure Name Priority Date/Time Associated Diagnosis Comments MRI ABDOMEN/PELVIS W WO CONTRAST Schedule Routine, Read Routine (OP Routine) 01/27/2022 11:48 AM CDT Malignant 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, 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) (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 No evidence of recurrent or metastatic disease within the abdomen and pelvis. Electronically signed by: Paulo Mandujano M.D. Narrative 01/29/2022 8:36 AM CDT EXAMINATION: 1. MAGNETIC RESONANCE IMAGING OF THE ABDOMEN WITHOUT AND WITH CONTRAST 2. MAGNETIC RESONANCE IMAGING OF THE PELVIS WITHOUT AND WITH CONTRAST HISTORY: History of colon cancer and triple negative breast cancer, status post left hemicolectomy, BCT and chemoradiation. TECHNIQUE: ??MRI of the abdomen and pelvis was performed prior to and following intravenous administration of gadolinium contrast. ?? Protocol: Abdomen dynamic and pelvis Contrast: Eovist 20 mL COMPARISON: 04/25/2021 FINDINGS: Liver: Hepatic steatosis. No iron deposition or cirrhosis. - Bile ducts: No intrahepatic or extrahepatic biliary duct dilatation. - Focal liver lesions: Demonstrated is a 9 x 8 mm lesion in segment 4A/4B (series 14 image 45) that has the appearance of focal fat in the background of diffuse hepatic steatosis. No suspicious liver lesions are identified. - Vasculature: Conventional hepatic arterial anatomy. Hepatic veins and portal veins are patent. Gallbladder: There is a gallstone. No cholecystitis. Pancreas: Normal Spleen: Normal Adrenals: Normal Kidneys: Left kidney is somewhat atrophic, unchanged from prior examination. Cyst in lower pole of right kidney. Bladder: Decompressed but otherwise normal. Reproductive organs: Status post hysterectomy and bilateral salpingoophrectomy. Other Findings: A septated cystic lesion within the left groin could represent a lymphangioma, unchanged. No lymph adenopathy. No suspicious osseous lesions. Procedure Note Paulo Mandujano MD PhD - 01/29/2022 EXAMINATION: 1. MAGNETIC RESONANCE IMAGING OF THE ABDOMEN WITHOUT AND WITH CONTRAST 2. MAGNETIC RESONANCE IMAGING OF THE PELVIS WITHOUT AND WITH CONTRAST HISTORY: History of colon cancer and triple negative breast cancer, status post left hemicolectomy, BCT and chemoradiation. TECHNIQUE: MRI of the abdomen and pelvis was performed prior to and following intravenous administration of gadolinium contrast. Protocol: Abdomen dynamic and pelvis Contrast: Eovist 20 mL COMPARISON: 04/25/2021 FINDINGS: Liver: Hepatic steatosis. No iron deposition or cirrhosis. - Bile ducts: No intrahepatic or extrahepatic biliary duct dilatation. - Focal liver lesions: Demonstrated is a 9 x 8 mm lesion in segment 4A/4B (series 14 image 45) that has the appearance of focal fat in the background of diffuse hepatic steatosis. No suspicious liver lesions are identified. - Vasculature: Conventional hepatic arterial anatomy. Hepatic veins and portal veins are patent. Gallbladder: There is a gallstone. No cholecystitis. Pancreas: Normal Spleen: Normal Adrenals: Normal Kidneys: Left kidney is somewhat atrophic, unchanged from prior examination. Cyst in lower pole of right kidney. Bladder: Decompressed but otherwise normal. Reproductive organs: Status post hysterectomy and bilateral salpingoophrectomy. Other Findings: A septated cystic lesion within the left groin could represent a lymphangioma, unchanged. No lymph adenopathy. No suspicious osseous lesions. IMPRESSION: 1. No evidence of recurrent or metastatic disease within the abdomen and pelvis. Electronically signed by: Paulo Mandujano M.D. 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) Malignant neoplasm of descending colon documented in this encounter Administered Medications Inactive Administered Medications - up to 3 most recent administrations Medication Order MAR Action Action Date Dose Rate Site gadoxetate (EOVIST) 0.25 mmol/mL (181.43 mg/mL) injection 20 mL 20 mL, intravenous, Once in imaging, contrast, Starting on 01/27/22 at 1119, For 1 dose, Imaging Protocol Orders Contrast Given 01/27/2022 11:25 AM CDT 20 mL sodium chloride 0.9% flush 125 mL 125 mL, intravenous, Once in imaging, line care, Starting on 01/27/22 at 1120, For 1 dose Given 01/27/2022 11:25 AM CDT 125 mL documented in this encounter Care Teams Weight Shifter Relationship Specialty Start Date End Date Dat Benito DO [address] [place] [address] PCP - General Internal Medicine 09/28/21 Aft, Kianna Machado MD PhD [address] [place] [address] Surgeon Surgical Oncology 11/22/17 Santiago Gilbert MD [address] [place] [address] Medical Claims Processor Gastroenterology 11/22/17 Dmitry Sanderson MD [address] [place] [address] Referring Physician Colon and Rectal Surgery 12/03/1805/06 Abbi Ventura MD [address] [place] [address] [address] [place] [address] Medical Oncologist/Workforce Management Manager Medical Oncology 12/03/18 Montse Thompson MD [address] [facility] [address] [place] [address] Consulting Physician Gynecologic Oncology 12/03/18 Lela Hardy MD PhD [address] [place] [address] Radiation Oncologist Radiation Oncology 12/23/18 Trena Obando MD [address] [place] [address] Consulting Physician Neurology 09/18/21 documented as of this encounter
--- OUTSIDE RECORDS SUMMARY | 2024-04-24 13:38 | XMS_ITS | Encounter Summary ---
Author Organization [facility] Healthcare Address [address] [place] [address] Care Team Providers Care Manager Port Name Role Phone Ravi Smith MD Primary Care Provider [phone] Aft, Kianna Machado MD PhD Unavailable [phone] Santiago Gilbert MD Unavailable [phone] Dmitry Sanderson MD Unavailable [phone] Abbi Ventura MD Unavailable Montse Thompson MD Unavailable [phone] Lela Hardy MD PhD Unavailable [phone] Trena Obando MD Unavailable [phone] Encounter Details Date Type Department Care Team (Late st Contact Info) Description 09/19/2021 2:25 PM CDT Lab [address] [address] Social History Tobacco Use Types Packs/Day Years [...] on file 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 Gender Identity Not on file Sexual Orientation Not on file documented as of this encounter Plan of Treatment Not on file documented as of this encounter Visit Diagnoses Not on filedocumented in this encounter Care Teams Manager Port Relationship Specialty Start Date End Date Ravi Smith MD PCP - General 11/04/17 09/27/21 Aft, Kianna Machado MD PhD [address] [place] [address] Surgeon Surgical Oncology 11/22/17 Santiago Gilbert MD [address] [place] [address] Direct Of Real Estate Gastroenterology 11/22/17 Dmitry Sanderson MD [address] [place] [address] Referring Physician Colon and Rectal Surgery 12/03/1805/06 Abbi Ventura MD [address] [place] [address] [address] [place] [address] Medical Oncologist/Gas Leak Inspector Medical Oncology 12/03/18 Montse Thompson MD [address] [place] [address] [address] [place] [address] Consulting Physician Gynecologic Oncology 12/03/18 Lela Hardy MD PhD [address] [facility] [address] [place] [address] Radiation Oncologist Radiation Oncology 12/23/18 Trena Obando MD [address] [place] [address] Consulting Physician Neurology 09/18/21 documented as of this encounter
--- OUTSIDE RECORDS SUMMARY | 2024-04-24 13:38 | XMS_ITS | Encounter Summary ---
Author Organization [facility] Address [address] [place] [address] Phone Care Team Providers Care Apprentice Cook Name Role Phone Aft, Kianna Machado MD PhD Unavailable [phone] Santiago Gilbert MD Unavailable [phone] Dmitry Sanderson MD Unavailable [phone] Abbi Ventura MD Unavailable Montse Thompson MD Unavailable [phone] Lela Hardy MD PhD Unavailable [phone] Trena Obando MD Unavailable [phone] Dat Benito DO Primary Care Provider [phone] Encounter Details Date Type Department Care Team (Latest Contact Info) Description 12/18/2021 Orders Only [facility] Scanning, Provider [...] on file 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 Gender Identity Not on file Sexual Orientation Not on file documented as of this encounter Plan of Treatment Not on file documented as of this encounter Procedures Procedure Name Priority Date/Time Associated Diagnosis Comments GI - RESULT 12/18/2021 11:30 AM CDT documented in this encounter Results * GI - RESULT (12/18/2021 11:30 AM CDT) Anatomical Region Laterality Modality Other us Provider Scanning Final Result documented in this encounter Visit Diagnoses Not on filedocumented in this encounter Care Teams Apprentice Cook Relationship Specialty Start Date End Date Dat Benito DO [address] [place] [address] PCP - General Internal Medicine 09/28/21 Aft, Kianna Machado MD PhD [address] [place] [address] Surgeon Surgical Oncology 11/22/17 Santiago Gilbert MD [address] [place] [address] Early Head Start Director Gastroenterology 11/22/17 Dmitry Sanderson MD [address] [place] [address] Referring Physician Colon and Rectal Surgery 12/03/1805/06 Abbi Ventura MD [address] [place] [address] Medical Oncologist/Bearing Grinder Medical Oncology 12/03/18 Montse Thompson MD [address] [place] [address] Consulting Physician Gynecologic Oncology 12/03/18 Lela Hardy MD PhD [address] [place] [address] Radiation Oncologist Radiation Oncology 12/23/18 Trena Obando MD [address] [place] [address] Consulting Physician Neurology 09/18/21 documented as of this encounter
--- OUTSIDE RECORDS SUMMARY | 2024-04-24 13:38 | XMS_ITS | Encounter Summary ---
Author Organization [facility] Address [address] [place] [address] Phone Care Team Providers Care Child Development Assistant Name Role Phone Aft, Kianna Machado MD PhD Unavailable [phone] Santiago Gilbert MD Unavailable [phone] Dmitry Sanderson MD Unavailable [phone] Abbi Ventura MD Unavailable Montse Thompson MD Unavailable [phone] Lela Hardy MD PhD Unavailable [phone] Trena Obando MD Unavailable [phone] Dat Benito DO Primary Care Provider [phone] Encounter Details Date Type Department Care Team (Late st Contact Info) Description 01/30/2022 Telephone [facility] Oncology [address] [place] [phone] Uriel Corral Social History Tobacco Use Types [...] on file 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 No evidence of recurrent or metastatic disease within the abdomen and pelvis. IMPRESSION: 1. No CT evidence of metastatic disease. 2. Groundglass is a left upper lobe which could be inflammatory in nature, possibly organizing pneumonia. Attention on follow-up imaging is recommended. Left voicemail message for patient with results and to return call to discuss whether she has had COVID or other lung infections recently. Uriel Corral RN ----- Message from Abbi Ventura MD sent at 01/29/2022 4:56 PM CDT ----- Did she have covid or other lung infection recently. Have her get either repeat CT chest in 4-6 weeks or follow up with PCP documented in this encounter Plan of Treatment Not on file documented as of this encounter Visit Diagnoses Not on filedocumented in this encounter Care Teams Child Development Assistant Relationship Specialty Start Date End Date Dat Benito DO [address] [place] [address] PCP - General Internal Medicine 09/28/21 Aft, Kianna Machado MD PhD [address] [place] [address] Surgeon Surgical Oncology 11/22/17 Santiago Gilbert MD [address] [place] [address] Head Operator Sulfide Gastroenterology 11/22/17 Dmitry Sanderson MD [address] [place] [address] Referring Physician Colon and Rectal Surgery 12/03/1805/06 Abbi Ventura MD [address] [facility] [address] [place] [address] Medical Oncologist/Acquisition Specialist Medical Oncology 12/03/18 Montse Thompson MD [address] [facility] [address] [place] [address] Consulting Physician Gynecologic Oncology 12/03/18 Lela Hardy MD PhD [address] [facility] [address] [place] [address] Radiation Oncologist Radiation Oncology 12/23/18 Trena Obando MD [address] [place] [address] Consulting Physician Neurology 09/18/21 documented as of this encounter
--- OUTSIDE RECORDS SUMMARY | 2024-04-24 13:38 | XMS_ITS | Encounter Summary ---
Author Organization [facility] Address [address] [place] [address] Care Team Providers Care Electric Repair Supervisor Name Role Phone Aft, Kianna Machado MD PhD Unavailable [phone] Santiago Gilbert MD Unavailable [phone] Dmitry Sanderson MD Unavailable [phone] Abbi Ventura MD Unavailable Montse Thompson MD Unavailable [phone] Lela Hardy MD PhD Unavailable [phone] Trena Obando MD Unavailable [phone] Dat Benito DO Primary Care Provider [phone] Reason for Referral * Diagnostic Imaging (Routine) - Closed Specialty Diagnoses / Procedures Referred By Contronny t Referred To Contact Diagnoses Malignant 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, estrogen receptor negative (HCC) Procedures Screening Mammogram Bilateral W Abbi Bueno MD [address] [facility] [address] [place] [address] Phone: tel: fax: [address] [phone] Referral ID Status Reason Start Date Expiration Date Visits Re quested Visits Authorized [id number] Closed 09/21/2021 10/21/2022 1 1 Reason for Visit * Diagnostic Imaging (Routine) - Closed Specialty Diagnoses / Procedures Referred By Contac t Referred To Contact Diagnoses Malignant 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, estrogen receptor negative (HCC) Procedures Screening Mammogram Bilateral W Abbi Bueno MD [address] [facility] [address] [place] [address] Phone: tel: fax: [address] [phone] Referral ID Status Reason Start Date Expiration Date Visits Re quested Visits Authorized [id number] Closed 09/21/2021 10/21/2022 1 1 Encounter Details Date Type Department Care Team (Latest Contact Info) Description 09/28/2021 2:13 PM CDT - 09/28/2021 11:59 PM CDT Hospital Encounter [address] [place] [address] Malignant neoplasm of upper-inner quadrant [...] on file 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 Gender Identity Not on file Sexual Orientation Not on file documented as of this encounter Medications at Time of Discharge ALPRAZolam (XANAX) 0.25 mg tablet Take 1 tablet (0.25 mg total) by mouth 3 (three) times a day as needed for anxiety 11/07/2017 amLODIPine (NORVASC) 5 mg tabletIndication s:hypertension Take 1 tablet (5 mg total) by mouth every morning 08/31/[address] (CYMBALTA) 60 mg capsuleIndicatio ns:Neuropathic Pain Take 1 capsule (60 mg total) by mouth nightly 05/07/2020 nortriptyline (PAMELOR) 10 mg capsuleIndicatio ns:Postherpetic Neuralgia,and sleep Take 1 capsule (10 mg total) by mouth nightly 09/13/2021 ondansetron (ZOFRAN) 4 mg tablet Take 1 tablet (4 mg total) by mouth every 8 (eight) hours as needed for vomiting or nausea 02/22/2021 propranolol LA (INDERAL LA) 60 mg 24 hr capsuleIndicatio ns:Essential Tremor Take 1 capsule (60 mg total) by mouth 2 (two) times a day 10/26/2019 topiramate (TOPAMAX) 25 mg tabletIndication s:pain Take [...] needed for wheezing 1 each 5 03/22/2021 07/09/2022 Bydureon BCise 2 mg/0.85 mL auto-injector INJECT 2MG UNDER THE SKIN EVERY WEEK 11/20/2020 02/01/2022 fluticasone propion-salmeter oL (ADVAIR DISKUS) 500-50 mcg/dose diskus inhaler Inhale 1 puff 2 (two) times a day Rinse mouth with water after use. Do not swallow. 60 each 5 06/05/2021 02/19/2023 gabapentin (NEURONTIN) 400 mg capsule Take 1 capsule (400 mg total) by mouth 3 (three) times a day 90 capsule 04/05/2021 02/01/2022 levothyroxine (SYNTHROID) 88 mcg tablet Take 88 mcg by mouth daily 08/01/2021 05/09/2022 LORazepam (ATIVAN) 0.5 mg tablet Take 1 tablet (0.5mg total) by mouth 30 minutes prior to MRI. 2 tablet 04/03/2021 01/15/2022 Rybelsus 14 mg tablet 10/24/2020 05/09/2022 documented as of this encounter Discharge Disposition Disposition Code Departure Means Destination Discharge to home or self care documented in this encounter Plan of Treatment Not on file documented as of this encounter Procedures Procedure Name Priority Date/Time Associated Diagnosis Comments SCREENING MAMMOGRAM BILATERAL W MATHEW Schedule STARR, Read STARR (Appt Today, Awaiting Results) 09/28/2021 2:39 PM CDT Malignant 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, 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) (HCC) documented in this encounter Results * Screening Mammogram Bilateral W Mathew (09/28/2021 2:39 PM CDT) Anatomical Region Laterality Modality Breast Bilateral Mammography Narrative 09/29/2021 9:59 AM CDT Mammogram Technique: Bilateral Digital Breast Tomosynthesis, Bilateral C-view 2D Screening mammogram. ??Views obtained: ??bilateral craniocaudal and bilateral mediolateral oblique. ??Computer Aided Detection was performed. Mammogram Findings: The present examination has been compared to prior imaging studies performed at [facility] on 11/05/2017, 08/11/2018 and 10/06/2020. [...] compared to prior imaging studies performed at [facility] on 11/05/2017, 08/11/2018 and 10/06/2020. [...] MD IMG MAMMO PROCEDURES Final Resul t documented in this encounter Visit Diagnoses Diagnosis Malignant 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, estrogen receptor negative (HCC) documented in this encounter Care Teams Electric Repair Supervisor Relationship Specialty Start Date End Date Dat Benito DO [address] [place] [address] PCP - General Internal Medicine 09/28/21 Aft, Kianna Machado MD PhD [address] [place] [address] Surgeon Surgical Oncology 11/22/17 Santiago Gilbert MD [address] [place] [address] Hand Leather Trimmer Gastroenterology 11/22/17 Dmitry Sanderson MD [address] [place] [address] Referring Physician Colon and Rectal Surgery 12/03/1805/06 Abbi Ventura MD [address] [place] [address] Medical Oncologist/Facility Supervisor Medical Oncology 12/03/18 Montse Thompson MD [address] [place] [address] Consulting Physician Gynecologic Oncology 12/03/18 Lela Hardy MD PhD [address] [facility] [address] [place] [address] Radiation Oncologist Radiation Oncology 12/23/18 Trena Obando MD [address] [place] [address] Consulting Physician Neurology 09/18/21 documented as of this encounter
--- OUTSIDE RECORDS SUMMARY | 2024-04-24 13:38 | XMS_ITS | Encounter Summary ---
Author Organization [facility] Address [address] [place] [address] Phone Care Team Providers Care Accordion Maker Name Role Phone Ravi Smith MD Primary Care Provider [phone] Aft, Kianna Machado MD PhD Unavailable [phone] Santiago Gilbert MD Unavailable [phone] Dmitry Sanderson MD Unavailable [phone] Abbi Ventura MD Unavailable Montse Thompson MD Unavailable [phone] Lela Hardy MD PhD Unavailable [phone] Trena Obando MD Unavailable [phone] Encounter Details Date Type Department Care Team (Late st Contact Info) Description 09/26/2021 Telephone [facility] Obstetrics and Gynecology [address] [facility] 13th [place] [address] [place] [id number] Evon Arreola RN Social History Tobacco Use Types Packs/Day [...] file 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 Pt verbalized understanding. documented in this encounter Plan of Treatment Not on file documented as of this encounter Visit Diagnoses Not on filedocumented in this encounter Care Teams Accordion Maker Relationship Specialty Start Date End Date Ravi Smith MD PCP - General 11/04/17 09/27/21 Aft, Kianna Machado MD PhD [address] [place] [address] Surgeon Surgical Oncology 11/22/17 Santiago Gilbert MD [address] [place] [address] Battalion Fire Chief Gastroenterology 11/22/17 Dmitry Sanderson MD [address] [place] [address] Referring Physician Colon and Rectal Surgery 12/03/1805/06 Abbi Ventura MD [address] [place] [address] [address] [place] [address] Medical Oncologist/Practice Administrator Medical Oncology 12/03/18 Montse Thompson MD [address] [facility] [address] [place] [address] Consulting Physician Gynecologic Oncology 12/03/18 Lela Hardy MD PhD [address] [facility] [address] [place] [address] Radiation Oncologist Radiation Oncology 12/23/18 Trena Obando MD [facility] [address] [place] [address] Consulting Physician Neurology 09/18/21 documented as of this encounter
--- OUTSIDE RECORDS SUMMARY | 2024-04-24 13:38 | XMS_ITS | Encounter Summary ---
Author Organization [facility] Healthcare Address [address] [place] [address] Care Team Providers Care Branding Machine Operator Name Role Phone Ravi Smith MD Primary Care Provider [phone] Aftatiana, Kianna Machado MD PhD Unavailable [phone] Santiago Gilbert MD Unavailable [phone] Dmitry Sanderson MD Unavailable [phone] Abbi Ventura MD Unavailable Montse Thompson MD Unavailable [phone] Lela Hardy MD PhD Unavailable [phone] Trena Obando MD Unavailable [phone] Encounter Details Date Type Department Care Team (Late st Contact Info) Description 09/21/2021 1:50 PM CDT Lab [address] [address] Malignant 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, 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) (HCC); 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); BRCA2 gene mutation positive in female Social History Tobacco Use Types [...] on file 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 Gender Identity Not on file Sexual Orientation Not on file documented as of this encounter Plan of Treatment Not on file documented as of this encounter Procedures Procedure Name Priority Date/Time Associated Diagnosis Comments EGFR Routine 09/21/2021 1:55 PM CDT Malignant 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, 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) (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) DIFFERENTIAL AUTO Routine 09/21/2021 1:5 5 PM CDT Malignant 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, 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) (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) CBC WITH AUTO DIFFERENTIAL Routine 09/21/2021 1:55 PM CDT Malignant 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, 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) (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) CA 125 Routine 09/21/2021 1:55 PM CDT BRCA2 gene mutation positive in female CEA Routine 09/21/2021 1:55 PM CDT Malignant 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, 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) (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) COMPREHENSIVE METABOLIC PANEL Routine 09/21/2021 1:55 PM CDT Malignant 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, 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) (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) documented in this encounter Results * (ABNORMAL) eGFR (09/21/2021 1:55 PM CDT) eGFR 38(L) 90 - 130 mL/min/1. 73 m2 [facility] Comment: Interpretive Data Reference Interval Normal ?>/= [...] interpretive data was last reviewed 2021. Blood 09/21/2021 1:55 PM CDT 09/21/2021 1:57 PM CDT us Abbi Ventura MD LAB BLOOD ORDERABLES Final Resul t [facility] Department [place] [address] * Differential, auto (09/21/2021 1:55 PM CDT) Neutrophil abs 5.2 1.7 - 6.5 K/cumm [facility] Comment:Testing performed by : [facility], [address] [place] [address] Imm gran abs 0.0 0.0 - 0.1 K/cumm [facility] Lymphocyte abs 1.2 0.8 - 3.3 K/cumm [facility] Monocyte abs 0.5 0.2 - 0.8 K/cumm [facility] Eosinophil abs 0.3 0.0 - 0.5 K/cumm [facility] Basophil abs 0.1 0.0 - 0.1 K/cumm [facility] Neutrophil pct 71.1 % [facility] Comment: Interpretive Data Percent cell count reference ranges are not reported, since discordance with absolute values may lead to misinterpretation of CBC data. Current Interpretive Data was last revised on 2017. Imm gran pct 0.4 % [facility] Comment: Interpretive Data Percent cell count reference ranges are not reported, since discordance with absolute values may lead to misinterpretation of CBC data. Current Interpretive Data was last revised on 2017. Lymphocyte pct 16.8 % [facility] Comment: Interpretive Data Percent cell count reference ranges are not reported, since discordance with absolute values may lead to misinterpretation of CBC data. Current Interpretive Data was last revised on 2017. Monocyte pct 6.7 % [facility] Comment: Interpretive Data Percent cell count reference ranges are not reported, since discordance with absolute values may lead to misinterpretation of CBC data. Current Interpretive Data was last revised on 2017. Eosinophil pct 4.0 % [facility] Comment: Interpretive Data Percent cell count reference ranges are not reported, since discordance with absolute values may lead to misinterpretation of CBC data. Current Interpretive Data was last revised on 2017. Basophil pct 1.0 % [facility] Comment: Interpretive Data Percent cell count reference ranges are not reported, since discordance with absolute values may lead to misinterpretation of CBC data. Current Interpretive Data was last revised on 2017. Blood 09/21/2021 1:55 PM CDT 09/21/2021 1:57 PM CDT us Abbi Ventura MD LAB BLOOD ORDERABLES Final Resul t [facility] Department [place] [address] * CA 125 (09/21/2021 1:55 PM CDT) Pathologist [facility] CA 125 ag 9.7 0.0 - 38.0 units/mL [facility] Comment: Interpretive Data The Bo CA 125 assay procedure was used. Results from different manufacturers or methods may not be comparable. Serial testing should be performed using the same method. Blood 09/21/2021 1:55 PM CDT 09/21/2021 3:28 PM CDT us [facility] Ac Thompson MD LAB BLOOD ORDERABLES Fin al Result [facility] Department [place] [address] * (ABNORMAL) CBC with auto differential (09/21/2021 1:55 PM CDT) [facility] WBC 7.3 3.8 - 9.9 K/cumm [facility] Comment:Testing performed by : [address] [address] Hgb 12.0 11.9 - 15.5 g/dL [facility] Comment:Testing performed by : [address] [address] Hct 37.4 35.6 - 45.5 % [facility] Comment:Testing performed by : [address] [address] Plt 200 150 - 400 K/cumm [facility] Comment:Testing performed by : [address] [address] MPV 9.7 9.1 - 12.3 fL [facility] RBC 3.97 3.90 - 5.20 M/cumm [facility] MCV 94.2 81.3 - 96.4 fL [facility] MCH 30.2 27.1 - 33.3 pg [facility] MCHC 32.1(L) 32.3 - 35.7 g/dL [facility] RDW CV 13.2 11.1 - 14.9 % [facility] RDW SD 45.3 35.7 - 48.1 fL [facility] NRBC abs 0.00 0.00 - 0.01 K/cumm [facility] Blood 09/21/2021 1:55 PM CDT 09/21/2021 1:57 PM CDT Abbi Ventura MD LAB BLOOD ORDERABLES Final Resul t Performing Organization Address [facility] de Phone Number [facility] [place] [address] * CEA (09/21/2021 1:55 PM CDT) CEA 1.8 <=5.0 ng/mL [facility] Comment: Interpretive Data: Reference Range: Non-Smokers: 0.0 ? 5.0 ng/mL Smokers: 0.0 ? 6.5 ng/mL The Bo CEA assay procedure was used. Results from different manufacturers or methods may not be comparable. Serial testing should be performed using the same method. Current interpretive data was last revised 2021. Blood 09/21/2021 1:55 PM CDT 09/21/2021 3:28 PM CDT Abbi Ventura MD LAB BLOOD ORDERABLES Final Resul t Performing Organization Address [facility] de Phone Number [facility] [place] [address] * (ABNORMAL) Comprehensive metabolic panel (09/21/2021 1:55 PM CDT) Sodium 139 135 - 145 mmol/L [facility] Comment:Testing performed by : [facility], [address] [place] [address] Potassium, pl 4.0 3.3 - 4.9 mmol/L [facility] Chloride 107 97 - 110 mmol/L [facility] CO2 23 22 - 32 mmol/L [facility] Anion gap 9 2 - 15 mmol/L [facility] BUN 20 8 - 25 mg/dL [facility] Creatinine 1.51(H) 0.60 - 1.10 mg/dL [facility] Glucose 121 70 - 199 mg/dL [facility] Comment: Interpretive Data Fasting glucose >/= 126 [...] 2017. Calcium 9.6 8.5 - 10.3 mg/dL [facility] Bilirubin, total 0.4 0.1 - 1.2 mg/dL [facility] Protein, pl 7.0 6.5 - 8.5 g/dL [facility] Albumin 4.4 3.5 - 5.0 g/dL [facility] Alk phos 111 40 - 130 Units/L [facility] ALT 13 7 - 45 Units/L [facility] AST 22 10 - 45 Units/L [facility] Blood 09/21/2021 1:55 PM CDT 09/21/2021 1:57 PM CDT us Abbi Ventura MD LAB BLOOD ORDERABLES Final Resul t [facility] Department [place] [address] documented in this encounter Visit Diagnoses Diagnosis Malignant 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, 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) Malignant neoplasm of descending colon BRCA2 gene mutation positive in female documented in this encounter Care Teams Branding Machine Operator Relationship Specialty Start Date End Date Ravi Smith MD PCP - General 11/04/17 09/27/21 Aft, Kianna Machado MD PhD [address] [place] [address] Surgeon Surgical Oncology 11/22/17 Santiago Gilbert MD [address] [place] [address] Manager Clinical Informatics Gastroenterology 11/22/17 Dmitry Sanderson MD [address] [place] [address] Referring Physician Colon and Rectal Surgery 12/03/1805/06 Abbi Ventura MD [address] [facility] [address] [place] [address] Medical Oncologist/Music Critic Medical Oncology 12/03/18 Montse Thmopson MD [address] [facility] [address] [place] [address] Consulting Physician Gynecologic Oncology 12/03/18 Lela Hardy MD PhD [address] [facility] [address] [place] [address] Radiation Oncologist Radiation Oncology 12/23/18 Trena Obando MD [address] [place] [address] Consulting Physician Neurology 09/18/21 documented as of this encounter
--- OUTSIDE RECORDS SUMMARY | 2024-04-24 13:38 | XMS_ITS | Encounter Summary ---
Author Organization [facility] Address [address] [place] [address] Phone Care Team Providers Care Automotive Accessory Installer Name Role Phone Aft, Kianna Machado MD PhD Unavailable [phone] Santiago Gilbert MD Unavailable [phone] Dmitry Sanderson MD Unavailable [phone] Abbi Ventura MD Unavailable Montse Thompson MD Unavailable [phone] Lela Hardy MD PhD Unavailable [phone] Trena Obando MD Unavailable [phone] Dat Benito DO Primary Care Provider [phone] Encounter Details Date Type Department Care Team (Late st Contact Info) Description 02/01/2022 3:00 PM CDT Lab [facility] [address] [place] [address] Malignant neoplasm of upper-inner quadrant of left [...] on file 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 Gender Identity Not on file Sexual [...] rst Ordered Date ONCBCN LAB APPOINTMENT 1 02/01/2022 documented in this encounter Care Teams Automotive Accessory Installer Relationship Specialty Start Date End Date Dat Benito DO [address] [place] [address] PCP - General Internal Medicine 09/28/21 Aft, Kianna Machado MD PhD [address] [place] [address] Surgeon Surgical Oncology 11/22/17 Santiago Gilbert MD [address] [place] [address] Cabin Supervisor Gastroenterology 11/22/17 Dmitry Sanderson MD [address] [place] [address] Referring Physician Colon and Rectal Surgery 12/03/1805/06 Abbi Ventura MD [address] [place] [address] [address] [place] [address] Medical Oncologist/Tea Leaf Reader Medical Oncology 12/03/18 Montse Thompson MD 10 [facility] [address] [place], [place] [id number] Consulting Physician Gynecologic Oncology 12/03/18 Lela Hardy MD PhD [address] [facility] [address] [place] [address] Radiation Oncologist Radiation Oncology 12/23/18 Trena Obando MD [address] [place] [address] Consulting Physician Neurology 09/18/21 documented as of this encounter
--- OUTSIDE RECORDS SUMMARY | 2024-04-24 13:38 | XMS_ITS | Encounter Summary ---
Author Organization [facility] Address [address] [place] [address] Phone Care Team Providers Care Sat Instructor Name Role Phone Aft, Kianna Machado MD PhD Unavailable [phone] Santiago Gilbert MD Unavailable [phone] Dmitry Sanderson MD Unavailable [phone] Abbi Ventura MD Unavailable Montse Thompson MD Unavailable [phone] Lela Hardy MD PhD Unavailable [phone] Trena Obando MD Unavailable [phone] Dat Benito DO Primary Care Provider [phone] Encounter Details Date Type Department Care Team (Late st Contact Info) Description 01/30/[address] 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/ZIP Co de Phone Number [facility] [place] [address] * T4, free (02/01/2022 3:28 PM CDT) Free T4 1.27 0.90 - 1.70 ng/dL [facility] Blood 02/01/2022 3:28 PM CDT 02/01/2022 6:09 PM CDT Abbi Ventura MD LAB BLOOD ORDERABLES Final Resul t [facility] [place] [address] * (ABNORMAL) TSH (02/01/2022 3:28 PM CDT) Thyroid Stimulating Hormone 0.18(L) 0.30 - 4.20 mcIUnit/mL [facility] Blood 02/01/2022 3:28 PM CDT 02/01/2022 6:09 PM CDT Abbi Ventura MD LAB BLOOD ORDERABLES Final Resul t [facility] Department [place] [address] documented in this encounter Visit Diagnoses Diagnosis Malignant 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, estrogen receptor negative (HCC)- Primary 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) Malignant neoplasm of descending colon documented in this encounter Care Teams Sat Instructor Relationship Specialty Start Date End Date Dat Benito DO [address] [place] [address] PCP - General Internal Medicine 09/28/21 Aft, Kianna Machado MD PhD [address] [place] [address] Surgeon Surgical Oncology 11/22/17 Santiago Gilbert MD [address] [place] [address] Health Information Systems Technician Gastroenterology 11/22/17 Dmitry Sanderson MD [address] [place] [address] Referring Physician Colon and Rectal Surgery 12/03/1805/06 Abbi Ventura MD [address] [place] [address] [address] [place] [address] Medical Oncologist/Fender Finisher Medical Oncology 12/03/18 Montse Thompson MD [address] [facility] [address] [place] [address] Consulting Physician Gynecologic Oncology 12/03/18 Lela Hardy MD PhD [address] [facility] [address] [place] [address] Radiation Oncologist Radiation Oncology 12/23/18 Trena Obando MD [facility] [address] [place] [address] Consulting Physician Neurology 09/18/21 documented as of this encounter
--- OUTSIDE RECORDS SUMMARY | 2024-04-24 13:38 | XMS_ITS | Encounter Summary ---
Author Organization [facility] Address [address] [place] [address] Phone Care Team Providers Care Community Manager Name Role Phone Aft, Kianna Machado MD PhD Unavailable [phone] Santiago Gilbert MD Unavailable [phone] Dmitry Sanderson MD Unavailable [phone] Abbi Ventura MD Unavailable Montse Thompson MD Unavailable [phone] Lela aHrdy MD PhD Unavailable [phone] Trena Obando MD Unavailable [phone] Dat Benito DO Primary Care Provider [phone] Encounter Details Date Type Department Care Team (Late st Contact Info) Description 12/04/2021 Telephone [facility] Oncology [address] [place] [phone] Uriel Corral Social History Tobacco Use Types [...] on file 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 Ventura, Can you contact Dr. Gilbert her local GI and get last colonoscopy report. Ask his office when they are going to do it again given her genetic mutations and h/o colon cancer. This RN attempted to call Dr. Gilbert's office , telephone number listed is no longer a working number. Attempted to call patient on 10/05 and 10/06, left voicemail message for patient to return call to discuss. Please follow up with patient to determine if this was done. Thank you! 10/09--she has called them twice. She will call us when she gets a hold of them and asks them to fax us the result. Ef 12/04/21: Attempted to call patient, left voicemail message for patient to return phone call to discuss. TB documented in this encounter Plan of Treatment Not on file documented as of this encounter Visit Diagnoses Not on filedocumented in this encounter Care Teams Community Manager Relationship Specialty Start Date End Date Dat Benito DO [address] [place] [address] PCP - General Internal Medicine 09/28/21 Aft, Kianna Machado MD PhD [address] [place] [address] Surgeon Surgical Oncology 11/22/17 Santiago Gilbert MD [address] [place] [address] Night Worker Gastroenterology 11/22/17 Dmitry Sanderson MD [address] [place] [address] Referring Physician Colon and Rectal Surgery 12/03/1805/06 Abbi Ventura MD 10 [facility] [address] [place] [address] Medical Oncologist/Angledozer Operator Medical Oncology 12/03/18 Montse Thompson MD [address] [facility] [address] [place] [address] Consulting Physician Gynecologic Oncology 12/03/18 Lela Hardy MD PhD [address] [facility] [address] [place] [address] Radiation Oncologist Radiation Oncology 12/23/18 Trena Obando MD [address] [place], [place] [address] Consulting Physician Neurology 09/18/21 documented as of this encounter
--- OUTSIDE RECORDS SUMMARY | 2024-04-24 13:38 | XMS_ITS | Encounter Summary ---
Author Organization [facility] Address [address] [place] [address] Phone Care Team Providers Care Stone Sawyer Name Role Phone Aft, Kianna Machado MD PhD Unavailable [phone] Santiago Gilbert MD Unavailable [phone] Dmitry Sanderson MD Unavailable [phone] Abbi Ventura MD Unavailable Montse Thompson MD Unavailable [phone] Lela Hardy MD PhD Unavailable [phone] Trena Obando MD Unavailable [phone] Dat Benito DO Primary Care Provider [phone] Encounter Details Date Type Department Care Team (Late st Contact Info) Description 03/23/2022 Telephone [facility] Oncology [address] [place] [phone] Uriel Corral Social History Tobacco Use Types [...] on file 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 SPECIALIST Gender Identity Not on file Sexual Orientation Not on file documented as of this encounter Miscellaneous Notes * Telephone Encounter - Uriel Corral - 03/23/2022 1:08 PM CST This RN called patient with breast MRI results from today and new 1.0 cm non- mass in the upper outer right breast. Dr. Ventura aware of results and will plan to obtain right breast MRI guided biopsy. Patient verbalizes understanding and agrees to plan, she was given telephone number [phone] to call and schedule biopsy. She is aware to call our office for any questions/concerns. Uriel Corral RN T SPECIALIST documented in this encounter Plan of Treatment Not on file documented as of this encounter Visit Diagnoses Not on filedocumented in this encounter Care Teams Stone Sawyer Relationship Specialty Start Date End Date Dat Benito DO [address] [place] [address] PCP - General Internal Medicine 09/28/21 Aft, Kianna Machado MD PhD [address] [place] [address] Surgeon Surgical Oncology 11/22/17 Santiago Gilbert MD [address] [place] [address] Weight And Balance Control Agent Gastroenterology 11/22/17 Dmitry Sanderson MD [address] [place] [address] Referring Physician Colon and Rectal Surgery 12/03/1805/06 Abbi Ventura MD [address] [place] [address] [address] [place] [address] Medical Oncologist/Maintenance Groundskeeper Medical Oncology 12/03/18 Montse Thompson MD 10 [facility] [address] [place] [address] Consulting Physician Gynecologic Oncology 12/03/18 Lela Hardy MD PhD [address] [place] [address] [address] [place] [address] Radiation Oncologist Radiation Oncology 12/23/18 Trena Obando MD [address] [place] [address] Consulting Physician Neurology 09/18/21 documented as of this encounter
--- OUTSIDE RECORDS SUMMARY | 2024-04-24 13:38 | XMS_ITS | Encounter Summary ---
Author Organization [facility] Address [address] [place] [address] Phone Care Team Providers Care Automotive Leasing Sales Representative Name Role Phone Aft, Kianna Machado MD PhD Unavailable Santiago Gilbert MD Unavailable [phone] Dmitry Sanderson MD Unavailable [phone] Abbi Ventura MD Unavailable Mnotse Thompson MD Unavailable [phone] Lela Hardy MD PhD Unavailable Trena Obando MD Unavailable [phone] Dat Benito DO Primary Care Provider [phone] Encounter Details Date Type Department Care Team (Late st Contact Info) Description 10/05/2021 Telephone [facility] Oncology [address] [place] [address] Uriel Corral Social History Tobacco Use Types [...] on file 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 Gilbert's office at telephone number listed: [phone], call unableto be completed as dialed. RN called Aleah left voicemail message for Aleah to return call to discuss. Uriel Corral RN ----- Message from Abbi Ventura MD sent at 10/04/2021 5:15 PM CDT ----- Can you contact Dr. Gilbert her local GI and get last colonoscopy report. Ask his office when they are going to do it again given her genetic mutations and h/o colon cancer. Thanks Abbi documented in this encounter Plan of Treatment Not on file documented as of this encounter Visit Diagnoses Not on filedocumented in this encounter Care Teams Automotive Leasing Sales Representative Relationship Specialty Start Date End Date Dat Benito DO [address] [place] [address] PCP - General Internal Medicine 09/28/21 Aft, Kianna Machado MD PhD [address] [place] [address] Surgeon Surgical Oncology 11/22/17 Santiago Gilbert MD [address] [place] [address] Ordnance Mechanic Gastroenterology 11/22/17 Dmitry Sanderson MD [address] [place] [address] Referring Physician Colon and Rectal Surgery 12/03/1805/06 Abbi Ventura MD [address] [facility] [address] [place] [address] Medical Oncologist/Solder Sprayer Medical Oncology 12/03/18 Montse Thompson MD [address] [facility] [address] [place] [address] Consulting Physician Gynecologic Oncology 12/03/18 Lela Hardy MD PhD [address] [facility] [address] [place] [address] Radiation Oncologist Radiation Oncology 12/23/18 Trena Obando MD [address] [place] [address] Consulting Physician Neurology 09/18/21 documented as of this encounter
--- OUTSIDE RECORDS SUMMARY | 2024-04-24 13:38 | XMS_ITS | Encounter Summary ---
Author Organization [facility] Address [address] [place] [address] Phone Care Team Providers Care Flat Cutter Name Role Phone Aft, Kianna Machado MD PhD Unavailable [phone] Santiago Gilbert MD Unavailable [phone] Dmitry Sanderson MD Unavailable [phone] Abbi Ventura MD Unavailable Montse Thompson MD Unavailable [phone] Lela Hardy MD PhD Unavailable [phone] Trena Obando MD Unavailable [phone] Dat Benito DO Primary Care Provider [phone] Encounter Details Date Type Department Care Team (Late st Contact Info) Description 12/18/2021 Telephone [facility] Oncology [address] [place] [phone] Uriel Corral Social History Tobacco Use Types [...] on file 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 TB 12/06/21: Faxed request for Medical Records to be released to our office by Brittni Lazaro MA. TB 12/12/21 Rosa, can you please follow up on this? Thanks, DB 12/[address] Gilbert's office, they will be sending report now. Received colonoscopy report, from 2019. AV Report received and placed in bin for scanning. TB 12/18/21: Report scanned. Last colonoscopy was done in December,, recommended colonoscopy again in 3 years. This RN called patient who states that she was waiting to see Dr. Ventura in March before having another colonoscopy done at this time per we will plan to draw Guardant Reveal during March ROV. Patient would like to await those results before having another colonoscopy done. Uriel Wooten RN documented in this encounter Plan of Treatment Not on file documented as of this encounter Visit Diagnoses Not on filedocumented in this encounter Care Teams Flat Cutter Relationship Specialty Start Date End Date Dat Benito DO [address] [place] [address] PCP - General Internal Medicine 09/28/21 Aft, Kianna Machado MD PhD [address] [place] [address] Surgeon Surgical Oncology 11/22/17 Santiago Gilbert MD [address] [place] [address] Helper Teacher Gastroenterology 11/22/17 Dmitry Sanderson MD [address] [place] [address] Referring Physician Colon and Rectal Surgery 12/03/1805/06 Abbi Ventura MD [address] [place] [address] [address] [place] [address] Medical Oncologist/Cold Saw Operator Medical Oncology 12/03/18 Montse Thompson MD [address] [facility] [address] [facility] [address] [place] [address] Consulting Physician Gynecologic Oncology 12/03/18 Lela Hardy MD PhD [address] [place] [address] Radiation Oncologist Radiation Oncology 12/23/18 Trena Obando MD [address] [place] [address] Consulting Physician Neurology 09/18/21 documented as of this encounter
--- OUTSIDE RECORDS SUMMARY | 2024-04-24 13:38 | XMS_ITS | Encounter Summary ---
Author Organization [facility] Address [address] [place] [address] Phone Care Team Providers Care Fuel Cell Repairer Name Role Phone Aft, Tony Machado MD PhD Unavailable [phone] Robert Soriano MD Unavailable [phone] Nicole López MD Unavailable [phone] Birdie Ventura MD Unavailable Montse Carter MD Unavailable [phone] Nilson Lopez MD PhD Unavailable [phone] Trena Obando MD Unavailable [phone] Dat Benito DO Primary Care Provider [phone] Encounter Details Date Type Department Care Team (Late st Contact Info) Description 11/07/2021 3:00 PM CDT Office Visit [facility] Pulmonary [address] 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 Gender Identity Not on file Sexual Orientation Not on file documented as of this encounter Last Filed Vital Signs Vital Sign Reading Time Taken Comments Blood Pressure 111/64 11/07/2021 2:50 PM CDT Pulse 80 11/07/2021 2:50 PM CDT Temperature 36.6 ??C (97.9 ??F) 11/07/2021 2:50 PM CD T Respiratory Rate 20 11/07/2021 2:50 PM CDT Oxygen Saturation 95% 11/07/2021 2:50 PM CDT Inhaled Oxygen Concentration - - Weight 108.9 kg (240 lb) 11/07/2021 2:50 PM CDT Height 173.2 cm (5' 8.19 ) 11/07/2021 2:50 PM CD T Body Mass Index 36.29 11/07/2021 2:50 PM CDT documented in this encounter Progress Notes * Cristobal Dong MD - 11/07/2021 12:00 AM CDT PATIENT NAME: ALEAH GERBER : 1955 FARHAT: 11/07/2021 PROBLEM LIST: 1. Mild persistent asthma. a. Positive methacholine challenge test March 2019. 2. Obstructive sleep apnea on APAP. a. Not using due to issues with water condensation accumulating within her mask 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 a. Status post left hemicolectomy in December 2017. b. FOLFOX therapy until February 2018. 4. 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 b. Status post breast-conserving surgery and sentinel lymph node biopsy, with zero out of 3 positive nodes, January 2018. c. BRCA2 positive. d. Status post whole breast radiation 4200 cGy plus 1000 cGy boost, completed on 02/04/2019. e. Status post AC chemotherapy, started on 06/25/2018. 5. Type 2 diabetes. 6. Hypertension. 7. History of suspected transient ischemic attack during chemotherapy. 8. History of deep vein thrombosis and pulmonary embolism, no longer on anticoagulation. 9. Diverticulitis. 10. Status post hysterectomy. 3. Temporomandibular joint syndrome. INTERVAL HISTORY: Ms. Gerber is a pleasant 66-year-old female who [facility] a history of mild persistent asthma. Since last being seen in March, she feels like she has dramatically improvedin general. She denies any hospitalizations, primary care or emergency room visits since her last visit. She presents today and denies any shortness of breath at rest. With respect to dyspnea on exertion, she has none with dressing, mild to moderate with showering, and mild to moderate with housework depending on her level of exertion. She does not do any significant yard work. She denies any cough including nocturnal coughing. She has both rhinitis and postnasal drainage. She recently saw an ENT, who diagnosed her with postnasal drainage as well as GERD based on her pharyngeal examination however, she has no symptoms of GERD. She has noticed wheezing at rest, but does not notice any nocturnally. She denies any fevers, chills, nausea, vomiting, or diarrhea. She has night sweats which are non-drenching. Her weight is decreased on purpose and her appetite is good. With respect to eating, she denies any aspirating, food sticking, or coughing with meals. She has had 1 COVID shot with [employer], to which she had a reaction, and is concerned about further shots. MEDICATIONS: 1. Albuterol 2 puffs q.i.d. p.r.n., which she is using once to twice a day. 2. Alprazolam. 3. Amlodipine. 4. Biotin. 5. Cymbalta. 6. Flonase 1 spray to each nostril b.i.d. (her ENT asked her to increase this to 2 puffs b.i.d.). 7. Advair 50/50 one puff b.i.d. 8. Levothyroxine. 9. Nortriptyline. 10. Omeprazole 20 mg p.o. daily, which she is not currently taking. 11. Ondansetron. 12. Propranolol long acting. 13. Psyllium seed with sugar. 14. Topiramate. 15. Tramadol. PHYSICAL EXAMINATION: Vital Signs: Blood pressure 111/64, heart rate 80 and regular, respiratory rate 16, no distress on room air. Temperature is 97.9. SpO2 is 95% on room air. Weight is 240 pounds, which is up by 4 pounds. BMI is 36.3. Head and Neck: Pupils equal and reactive to light. Extraocular motion intact. There is no rhinitis or sinusitis. There is mild pharyngitis. No conjunctivitis. Mallampati score is a III. Trachea is central. There is no jugular venous distention. No significant cervical or supraclavicular lymphadenopathy. Respiratory: Normal to percussion bilaterally. Good breath sounds bilaterally without wheezes or crackles. Cardiovascular: No RV heave. Regular rate and rhythm. No murmurs, rubs, or gallops. Abdomen: Soft, nontender, nondistended, with normoactive bowel sounds. Extremities: No clubbing, cyanosis, or edema. Good peripheral pulses and perfusion. LABORATORY DATA: 1. Pulmonary function tests: FEV1 is 2.01 L (71% predicted) and FVC 2.51 L (69% predicted), for an FEV1/FVC ratio of 80%. Flows are normal at all lung volumes. On the basis of these pulmonary function tests, there is a mild restrictive ventilatory defect. Compared to pulmonary function dated 03/21/2021, there has been no significant interval change, although both FEV1 and FVC are improved. PFTs on 07/26/2020 were similar to March. 2. Six-minute walk: On room air at rest, SpO2 is normal, and with effort significant to increase heart rate from 75 to 106, falls but remains normoxemic. On this basis, there is no requirement for supplemental oxygen either at rest or with exertion. There is no significant change in post-exercise FEV1. 3. Chest CT from 04/25/2021, was reviewed and compared to a prior dated 10/06/2020. There are new mild patchy right lower lobe ground-glass opacities and tree-in-bud nodules that may be the sequelae of aspiration. There is no consolidation, pleural effusion, or pneumothorax. No axillary, supraclavicular, or mediastinal lymphadenopathy. Heart is normal without pericardial effusion. ASSESSMENT: Ms. Gerber is a pleasant 66-year-old female who [facility] for [facility] history of mild persistent asthma. She presents today and is feeling better since last being seen. Her pulmonary function tests have rebounded from lower values in 2020. She currently has no evidence of obstructionand only mild restriction without any evidence of interstitial or neuromuscular disease. She recently saw an ENT, who felt that she had both GERD and postnasal drainage. PLAN: 1. Asthma. At this point in time, I would like to keep her Advair at 50/500. If her pulmonary function improves or remains stable, we could always consider de- escalating the dose of steroid at her return office visit. 2. Rhinitis. Ms. Gerber has been treating with Flonase 1 spray to each nostril at night. Her ENT asked her to increase this to 2 puffs b.i.d. 3. GERD. At her last visit, Ms. Gerber was complaining of GERD. We had written for an H2 nathalia tosee if it resulted in improvement. She is not currently on it but has a prescription for a PPI and her ENT had wanted to start her on treatment. I told her to coordinate the medications with them. 4. Obstructive sleep apnea. On further questioning, Ms. Gerber is noncompliant with her noninvasiveventilation. We will continue to follow and encourage her to be. 5. Pulmonary opacities on CT. On questioning today, Ms. Gerber does not have any new pulmonary symptoms. She also denies any evidence of aspiration. The changes noted on her previous CT may be due toa combination of postnasal drainage and GERD. We will continue to monitor. She has another CT set up through Oncology, which we will review when available. 6. Return office visit will be in 6 months, or sooner if the need arises. ELECTRONICALLY SIGNED - 11/08/2021 03:22 PM Cristobal Dong M.D. cook tortilla /shaina cc: BIRDIE VENTURA M.D. [address] [place] [id number] MONTSE CARTER MD [facility] Gynecological Oncology [address] [place] [address] NICOLE LÓPEZ MD [address] [place] [address] ROBERT SORIANO MD [address] [place] [address] / HUGO PENALOZA MD [address] [place] [address] / NILSON LOPEZ MD [address] [facility] [address] [place] [address] TONY GAY MD [address] [facility] Floor 5 [place] [address] documented in this encounter Plan of Treatment Not on file documented as of this encounter Visit Diagnoses Diagnosis History of breast cancer- Primary Personal history of malignant neoplasm of breast Moderate persistent asthma without complication VIOLETTE (obstructive sleep apnea) Obstructive sleep apnea (adult) (pediatric) documented in this encounter Historical Medications * This list may reflect changes made after this encounter. psyllium seed, with sugar, (FIBER ORAL) Take by mouth 05/09/2022 biotin 5,000 mcg tablet,disintegra ting 5,000 mcg 05/09/2022 added in this encounter Care Teams Fuel Cell Repairer Relationship Specialty Start Date End Date Dat Benito DO [address] [place] [address] PCP - General Internal Medicine 09/28/21 Aileent, Tony Machado MD PhD [address] [place] [address] Surgeon Surgical Oncology 11/22/17 Robert Soriano MD [address] [place] [address] Concrete Rod Buster Gastroenterology 11/22/17 Nicole López MD [address] [place] [address] Referring Physician Colon and Rectal Surgery 12/03/1805/06 Birdie Ventura MD [address] [facility] [address] [place] [address] Medical Oncologist/Paper Rewinder Operator Medical Oncology 12/03/18 Montse Carter MD [address] [facility] [address] [place], [place] [id number] Consulting Physician Gynecologic Oncology 12/03/18 Nilson Lopez MD PhD [address] [facility] [address] [place], [place] [id number] Radiation Oncologist Radiation Oncology 12/23/18 Trena Obando MD [address] [place], [place] [address] Consulting Physician Neurology 09/18/21 documented as of this encounter
--- OUTSIDE RECORDS SUMMARY | 2024-04-24 13:38 | XMS_ITS | Encounter Summary ---
Author Organization [facility] Address [address] [place] [address] Phone Care Team Providers Care Radiation Officer Name Role Phone Aft, Kianna Machado MD PhD Unavailable [phone] Santiago Gilbert MD Unavailable [phone] Dmitry Sanderson MD Unavailable [phone] Abbi Ventura MD Unavailable Montse Thompson MD Unavailable [phone] Lela Hardy MD PhD Unavailable [phone] Trena Obando MD Unavailable [phone] Dat Benito DO Primary Care Provider [phone] Encounter Details Date Type Department Care Team (Late st Contact Info) Description 11/08/2021 Telephone [facility] Pulmonary [address] [facility] Advanced 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 Dong. Thanks, Jovita ----- Message ----- From: Renetta Eduardo RMA Sent: 11/07/2021 3:38 PM CDT To: Adelina Morton RN Subject: Appt slot needed Jovita, Can I have a date and time for a 6 month f/u with Dr. Dong. Thanks documented in this encounter Plan of Treatment Not on file documented as of this encounter Visit Diagnoses Not on filedocumented in this encounter Care Teams Radiation Officer Relationship Specialty Start Date End Date Dat Benito DO [address] [place] [address] PCP - General Internal Medicine 09/28/21 Aft, Kianna Machado MD PhD [address] [place] [address] Surgeon Surgical Oncology 11/22/17 Santiago Gilbert MD [address] [place] [address] Ledger Poster Gastroenterology 11/22/17 Dmitry Sanderson MD [address] [place] [address] Referring Physician Colon and Rectal Surgery 12/03/1805/06 Abbi Ventura MD [address] [facility] [address] [place] [address] Medical Oncologist/Director Of Audiology Medical Oncology 12/03/18 Montse Thompson MD [address] [facility] [address] [place] [address] Consulting Physician Gynecologic Oncology 12/03/18 Lela Hardy MD PhD [address] [facility] [address] [place] [address] Radiation Oncologist Radiation Oncology 12/23/18 Trena Obando MD [address] [place], [place] [address] Consulting Physician Neurology 09/18/21 documented as of this encounter
--- OUTSIDE RECORDS SUMMARY | 2024-04-24 13:38 | XMS_ITS | Encounter Summary ---
Author Organization [facility] Address [address] [place] [address] Phone Care Team Providers Care Museum Archivist Name Role Phone Aft, Kianna Machado MD PhD Unavailable [phone] Santiago Gilbert MD Unavailable [phone] Dmitry Sanderson MD Unavailable [phone] Abbi Ventura MD Unavailable Montse Thompson MD Unavailable [phone] Lela Hardy MD PhD Unavailable [phone] Trena Obando MD Unavailable [phone] Dat Benito DO Primary Care Provider [phone] Encounter Details Date Type Department Care Team (Latest Contact Info) Description 02/12/2022 Orders Only [facility] Scanning, Provider [...] on file 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 Gender Identity Not on file Sexual Orientation Not on file documented as of this encounter Plan of Treatment Not on file documented as of this encounter Procedures Procedure Name Priority Date/Time Associated Diagnosis Comments SCAN - PATHOLOGY 02/12/2022 documented in this encounter Results * SCAN - PATHOLOGY (02/12/2022) us Provider Scanning Edited Result - Final documented in this encounter Visit Diagnoses Not on filedocumented in this encounter Care Teams Museum Archivist Relationship Specialty Start Date End Date Dat Benito DO [address] [place] [address] PCP - General Internal Medicine 09/28/21 Aft, Kianna Machado MD PhD [address] [place] [address] Surgeon Surgical Oncology 11/22/17 Santiago Gilbert MD [address] [place] [address] Mangle Operator Garments Gastroenterology 11/22/17 Dmitry Sanderson MD [address] [place] [address] Referring Physician Colon and Rectal Surgery 12/03/1805/06 Abbi Ventura MD [address] [facility] [address] [place] [address] Medical Oncologist/Lath Hand Medical Oncology 12/03/18 Montse Thompson MD [address] [facility] [address] [place] [address] Consulting Physician Gynecologic Oncology 12/03/18 Lela Hardy MD PhD [address] [facility] [address] [place] [address] Radiation Oncologist Radiation Oncology 12/23/18 Trena Obando MD [address] [place] [address] Consulting Physician Neurology 09/18/21 documented as of this encounter
--- OUTSIDE RECORDS SUMMARY | 2024-04-24 13:38 | XMS_ITS | Encounter Summary ---
Author Organization [facility] Address [address] [place] [address] Care Team Providers Care Field Sales Specialist Name Role Phone Aft, Kianna Machado MD PhD Unavailable [phone] Santiago Gilbert MD Unavailable [phone] Dmitry Sanderson MD Unavailable [phone] Abbi Ventura MD Unavailable Montse Thompson MD Unavailable [phone] Lela Hardy MD PhD Unavailable [phone] Trena Obando MD Unavailable [phone] Dat Benito DO Primary Care Provider [phone] Reason for Referral * MRI/CAT/PET Scan (Routine) - Closed Specialty Diagnoses / Procedures Referred By Contac t Referred To Contact Radiology Diagnoses Malignant 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, 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) Procedures CT Chest Abdomen WO Contrast Abbi Ventura MD [address] [place] [address] Phone: tel: fax: [facility] Referral ID Status Reason Start Date Expiration Date Visits Re quested Visits Authorized [id number] Closed 09/21/2021 10/21/2022 1 1 Reason for Visit * MRI/CAT/PET Scan (Routine) - Closed Specialty Diagnoses / Procedures Referred By Contac t Referred To Contact Radiology Diagnoses Malignant 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, 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) Procedures CT Chest Abdomen WO Contrast Abbi Ventura MD [address] [facility] [address] [place] [address] Phone: tel: fax: [facility] Referral ID Status Reason Start Date Expiration Date Visits Re quested Visits Authorized [id number] Closed 09/21/2021 10/21/2022 1 1 Encounter Details Date Type Department Care Team (Latest Contact Info) Description 01/27/2022 10:38 AM CDT - 01/27/2022 11:59 PM CDT Hospital Encounter [facility] Radiology at [address] [address] Malignant neoplasm of upper-inner quadrant [...] on file 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 IMPRESSION: 1. No CT evidence of metastatic disease. 2. Groundglass is a left upper lobe which could be inflammatory in nature, possibly organizing pneumonia. Attention on follow-up imaging is recommended. Electronically signed by: Willie Bullock M.D. Narrative 01/28/2022 9:07 AM CDT EXAMINATION: ??Computed tomography of the chest and abdomen without intravenous contrast HISTORY: Breast cancer TECHNIQUE: ??Transaxial computed tomographic images of the chest and abdomen ??were obtained without intravenous contrast according to the standard protocol after the uneventful administration of 0 mL Opti-Ray 350 intravenous contrast. COMPARISON: 04/25/2021, 10/06/2020 FINDINGS: ?? There is minimal groundglass within the left upper lobe which is likely inflammatory in nature. These findings are slightly increased in compared to the prior CT examination. There are no suspicious pulmonary nodules or masses. No supravesicular, axillary, mediastinal, or hilar lymphadenopathy. There is no internal mammary adenopathy. The heart size is normal. No pericardial effusion. No focal liver lesions are appreciated by noncontrast CT. No biliary dilatation. Sludge or stones are seen within the gallbladder. No evidence of cholecystitis. The pancreas and spleen are normal. Both adrenal glands are normal. No hydronephrosis involving either kidney. Normal appearance of the bowel. Normal appendix. Procedure Note Willie Bullock MD - 01/28/2022 EXAMINATION: Computed tomography of the chest and abdomen without intravenous contrast HISTORY: Breast cancer TECHNIQUE: Transaxial computed tomographic images of the chest and abdomen were obtained without intravenous contrast according to the standard protocol after the uneventful administration of 0 mL Opti-Ray 350 intravenous contrast. COMPARISON: 04/25/2021, 10/06/2020 FINDINGS: There is minimal groundglass within the left upper lobe which is likely inflammatory in nature. These findings are slightly increased in compared to the prior CT examination. There are no suspicious pulmonary nodules or masses. No supravesicular, axillary, mediastinal, or hilar lymphadenopathy. There is no internal mammary adenopathy. The heart size is normal. No pericardial effusion. No focal liver lesions are appreciated by noncontrast CT. No biliary dilatation. Sludge or stones are seen within the gallbladder. No evidence of cholecystitis. The pancreas and spleen are normal. Both adrenal glands are normal. No hydronephrosis involving either kidney. Normal appearance of the bowel. Normal appendix. IMPRESSION: Bone windows show no suspicious lytic or blastic lesions. IMPRESSION: 1. No CT evidence of metastatic disease. 2. Groundglass is a left upper lobe which could be inflammatory in nature, possibly organizing pneumonia. Attention on follow-up imaging is recommended. Electronically signed by: Willie Bullock M.D. 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) Malignant neoplasm of descending colon documented in this encounter Care Teams Field Sales Specialist Relationship Specialty Start Date End Date Dat Benito DO [address] [place] [address] PCP - General Internal Medicine 09/28/21 Aft, Kianna Machado MD PhD [address] [place] [address] Surgeon Surgical Oncology 11/22/17 Santiago Gilbert MD [address] [place] [address] Internal Affairs Commander Gastroenterology 11/22/17 Dmitry Sanderson MD [address] [place] [address] Referring Physician Colon and Rectal Surgery 12/03/1805/06 Abbi Ventura MD [address] [place] [address] [address] [place] [address] Medical Oncologist/Property Field Inspector Medical Oncology 12/03/18 Montse Thompson MD [address] [place] [address] [address] [place] [address] Consulting Physician Gynecologic Oncology 12/03/18 Lela Hardy MD PhD [address] [facility] [address] [place] [address] Radiation Oncologist Radiation Oncology 12/23/18 Trena Obando MD [facility] [address] [place] [address] Consulting Physician Neurology 09/18/21 documented as of this encounter
--- OUTSIDE RECORDS SUMMARY | 2024-04-24 13:38 | XMS_ITS | Encounter Summary ---
Author Organization [facility] Address [address] [place] [address] Phone Care Team Providers Care [facility] Name Role Phone Ravi Smith MD Primary Care Provider [phone] Aft, Kianna Machado MD PhD Unavailable [phone] Santiago Gilbert MD Unavailable [phone] Dmitry Sanderson MD Unavailable [phone] Abbi Ventura MD Unavailable Montse Thompson MD Unavailable [phone] Lela Hardy MD PhD Unavailable Aft, Kianna Machado MD PhD Unavailable [phone] Encounter Details Date Type Department Care Team (Late st Contact Info) Description 07/04/2021 Telephone [facility] Oncology [address] [place] [id number] Sue Valente CNA Social History Tobacco Use Types Packs/Day Years [...] on file 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 ACTOR TENDER RAW STOCK documented in this encounter Plan of Treatment Not on file documented as of this encounter Visit Diagnoses Not on filedocumented in this encounter Care Teams [facility] Relationship Specialty Start Date End Date Ravi Smith MD PCP - General 11/04/17 09/27/21 Aft, Kianna Machado MD PhD [address] [place] [address] Surgeon Surgical Oncology 11/22/17 Santiago Gilbert MD [address] [place] [address] Ad Operations Intern Gastroenterology 11/22/17 Dmitry Sanderson MD [address] [place] [address] Referring Physician Colon and Rectal Surgery 12/03/1805/06 Abbi Ventura MD [address] [place] [address] Medical Oncologist/Branch Sales And Service Representative Medical Oncology 12/03/18 Montse Thompson MD [address] [place] [address] Consulting Physician Gynecologic Oncology 12/03/18 Lela Hardy MD PhD [address] [place] [address] Radiation Oncologist Radiation Oncology 12/23/18 Aft, Kianna Machado MD PhD [address] [place] [address] Surgeon Surgical Oncology 12/23/18 09/17/21 documented as of this encounter
--- OUTSIDE RECORDS SUMMARY | 2024-04-24 13:38 | XMS_ITS | Encounter Summary ---
Author Organization [facility] Address [address] [place] [address] Phone Care Team Providers Care Wood Sash And Frame Carpenter Name Role Phone Aft, Kianna Machado MD PhD Unavailable [phone] Santiago Gilbert MD Unavailable [phone] Dmitry Sanderson MD Unavailable [phone] Abbi Ventura MD Unavailable Montse Thompson MD Unavailable [phone] Lela Hardy MD PhD Unavailable [phone] Trena Obando MD Unavailable [phone] Dat Benito DO Primary Care Provider [phone] Encounter Details Date Type Department Care Team (Late st Contact Info) Description 10/09/2021 Telephone [facility] Oncology [address] [place] [phone] Dolores Cochran, RN Social History Tobacco Use Types Packs/Day [...] on file 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 Gilbert's office to get her colonoscopy result. Patient stated she called on Saturday and also today. She has our fax number and stated she will give them our fax number to get the result. Patient will call when she hears from the office. Dolores RN 1355 documented in this encounter Plan of Treatment Not on file documented as of this encounter Visit Diagnoses Not on filedocumented in this encounter Care Teams Wood Sash And Frame Carpenter Relationship Specialty Start Date End Date Dat Benito DO [address] [place] [address] PCP - General Internal Medicine 09/28/21 Aft, Kianna Machado MD PhD [address] [place] [address] Surgeon Surgical Oncology 11/22/17 Santiago Gilbert MD [address] [place] [address] Safety Teacher Gastroenterology 11/22/17 Dmitry Sanderson MD [address] [place] [address] Referring Physician Colon and Rectal Surgery 12/03/1805/06 Abbi Ventura MD [address] [place] [address] [address] [place] [address] Medical Oncologist/Show Design Supervisor Medical Oncology 12/03/18 Montse Thompson MD [address] [facility] [address] [place] [address] Consulting Physician Gynecologic Oncology 12/03/18 Lela Hardy MD PhD [address] [place] [address] Radiation Oncologist Radiation Oncology 12/23/18 Trena Obando MD [address] [place] [address] Consulting Physician Neurology 09/18/21 documented as of this encounter
--- OUTSIDE RECORDS SUMMARY | 2024-04-24 13:38 | XMS_ITS | Encounter Summary ---
Author Organization [facility] Address [address] [place] [address] Care Team Providers Care Kettle Girl Name Role Phone Aft, Kianna Machado MD PhD Unavailable [phone] Santiago Gilbert MD Unavailable [phone] Dmitry Sanderson MD Unavailable [phone] Abbi Ventura MD Unavailable Montse Thompson MD Unavailable [phone] Lela Hardy MD PhD Unavailable [phone] Trena Obando MD Unavailable [phone] Dat Benito DO Primary Care Provider [phone] Encounter Details Date Type Department Care Team (Late st Contact Info) Description 01/26/2022 Orders Only [facility] Radiology at [facility] Medicine [address] [place] [address] Laquita Redding, RN Social History Tobacco Use Types Packs/Day [...] on file 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 Gender Identity Not on file Sexual Orientation Not on file documented as of this encounter Plan of Treatment Not on file documented as of this encounter Visit Diagnoses Not on filedocumented in this encounter Care Teams Kettle Girl Relationship Specialty Start Date End Date Dat Benito DO [address] [place] [address] PCP - General Internal Medicine 09/28/21 Aft, Kianna Machado MD PhD [address] [place] [address] Surgeon Surgical Oncology 11/22/17 Santiago Gilbert MD [address] [place] [address] Tree Doctor Gastroenterology 11/22/17 Dmitry Sanderson MD [address] [place] [address] Referring Physician Colon and Rectal Surgery 12/03/1805/06 Abbi Ventura MD [address] [place] [address] Medical Oncologist/Finance Broker Medical Oncology 12/03/18 Montse Thompson MD [address] [place], [place] [address] Consulting Physician Gynecologic Oncology 12/03/18 Lela Hardy MD PhD [address] [place] [address] Radiation Oncologist Radiation Oncology 12/23/18 Trena Obando MD [address] [place] [address] Consulting Physician Neurology 09/18/21 documented as of this encounter
--- OUTSIDE RECORDS SUMMARY | 2024-04-24 13:38 | XMS_ITS | Encounter Summary ---
Author Organization [facility] Address [address] [place] [address] Phone Care Team Providers Care Coremaker Machine Name Role Phone Aft, Kianna Machado MD PhD Unavailable [phone] Santiago Gilbert MD Unavailable [phone] Dmitry Sanderson MD Unavailable [phone] Abbi Ventura MD Unavailable Montse Thompson MD Unavailable Lela Hardy MD PhD Unavailable [phone] Trena Obando MD Unavailable [phone] Dat Benito DO Primary Care Provider [phone] Reason for Referral * MRI/CAT/PET Scan (Routine) - Closed Specialty Diagnoses / Procedures Referred By Contac t Referred To Contact Radiology Diagnoses Malignant 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, 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) Procedures MRI Breast Bilateral W WO Contrast Abbi Ventura MD [address] [facility] [address] [place] [address] Phone: tel: fax: [facility] Referral ID Status Reason Start Date Expiration Date Visits Re quested Visits Authorized [id number] Closed 02/01/2022 03/03/2023 1 1 Encounter Details Date Type Department Care Team (Late st Contact Info) Description 02/01/2022 3:30 PM CDT Office Visit 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 Gender Identity Not on file Sexual Orientation Not on file documented as of this encounter Last Filed Vital Signs Vital Sign Reading Time Taken Comments Blood Pressure 134/77 02/01/2022 3:31 PM CDT Pulse 98 02/01/2022 3:31 PM CDT Temperature 36.4 ??C (97.6 ??F) 02/01/2022 3:31 PM CD T Respiratory Rate 17 02/01/2022 3:31 PM CDT Oxygen Saturation 94% 02/01/2022 3:31 PM CDT Inhaled Oxygen Concentration - - Weight 110 kg (242 lb 6.4 oz) 02/01/2022 3:31 PM CDT Height - - Body Mass Index 35.8 01/27/2022 10:46 AM CDT documented in this encounter Progress Notes * Abbi Ventura MD - 02/01/2022 3:30 PM CDT The Patient Identifying Data: Aleah Gerber is [...] ~ 1.4 cm, Grade 3, ER 0, [place] 0, HER-2 IHC 0. Partial mastectomy and [...] Adjuvant radiation therapy completed 02/04/2019. Interval History Patient was having lower abdominal pain, pain behind her knees, top of left little toe, back of herarms, jaws. C/o hoarse voice and ear issues on and off. Wanted her scans done sooner due to symptoms and is here to discuss her scan results and follow up. Review of Systems Review of systems positive for symptoms as per interval history. All other review of systems negative. Objective Vitals: Vitals BP 134/77 (BP Location: Right arm) Pulse 98 Temp 36.4 ??C (97.6 ??F) Resp 17 Wt 110 kg (242 lb 6.4 oz) LMP (LMP Unknown) SpO2 94% BMI 35.80 kg/m?? PERFORMANCE STATUS: ECOG 1 SKIN: Normal [...] no palpable cervical, supraclavicular, submandibular adenopathy. BREAST: Right: No dominant masses. No nipple or areolar changes. Left: Status post partial mastectomy. No dominant masses. No nipple or areolar changes. Telangiectasias in left inframammary area. Lab/Radiology/Diagnostic Review: Hematology Lab History Some values may be hidden. Unless noted otherwise, only the newest values recorded on each date aredisplayed. Labs - Hematology Latest Ref Range 03/23/21 09/21/21 02/01/22 WBC 3.8 - 9.9 K/cumm 9.9 7.3 7.3 Total Hb, POC 11.9 - 15.5 g/dL 11.7 (A) 12.0 12.3 Hct 35.6 - 45.5 % 35.8 37.4 38.3 Plt 150 - 400 K/cumm 178 200 180 Neutrophil abs 1.7 - 6.5 K/cumm 6.7 (A) 5.2 4.7 Lymphocytes, abs 0.8 - 3.3 K/cumm 1.9 1.2 1.8 (A) Abnormal value Comments are available for some flowsheets but are not being displayed. Lab Results Component Value Date SODIUM 139 09/21/2021 POTASSIUM 4.0 09/21/2021 CO2 23 09/21/2021 BUNSER 20 09/21/2021 GLUCOSE 121 09/21/2021 CREATININE 1.3 (H) 01/27/2022 CALCIUM 9.6 09/21/2021 CHLORIDE 107 09/21/2021 ALBUMIN 4.4 09/21/2021 AST 22 09/21/2021 ALT 13 09/21/2021 ALKPHOS 111 09/21/2021 BILITOT 0.4 09/21/2021 PROT 7.0 09/21/2021 ANIONGAP 9 09/21/2021 Tumor Marker History Some values may be hidden. Unless noted otherwise, only the newest values recorded on each date aredisplayed. Tumor Markers Latest Ref Range 03/23/21 09/21/21 CEA <=5.0 ng/mL 1.5 1.8 CA 125 ag 0.0 - 38.0 units/mL 9.7 Comments are available for some flowsheets but are not being displayed. MRI Abdomen Pelvis W WO Contrast Narrative: EXAMINATION: 1. MAGNETIC [...] No lymph adenopathy. No suspicious osseous lesions. Impression: 1. No evidence of recurrent or metastatic disease within the abdomen and pelvis. Electronically signed by: Paulo Mandujano M.D. CT Chest Abdomen WO Contrast Status: Final result Study Result Narrative & Impression EXAMINATION: Computed tomography of the chest and [...] is recommended. 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 PLAN: MRI breast 05/2022 F/u Guardant Reveal today ROV [address] chest and labs Check Ca 125 to screen for primary peritoneal carcinomatosis Due for colonoscopy and I asked her to call Dr. Gilbert, her local boiler technician Aleah Gerber will follow up as directed above, she was encouraged to call in the interim with questions or concerns. We will continue to monitor and review for side effects from treatment. Abbi Ventura MD head shipper Division of Oncology Section of Medical Oncology [facility] Power Crane Operator completed by using [employer] Direct speaking software, therefore, transcriptionvariances may occur. documented in this encounter Plan of Treatment Not on file documented as of this encounter Results * MRI Breast Bilateral W WO Contrast (03/23/2022 9:13 AM LAN ADMINISTRATOR) Anatomical Region Laterality Modality Breast Bilateral Magnetic Resonan ce 03/23/2022 10:5 3 AM LAN ADMINISTRATOR Impressions 03/23/2022 12:31 PM LAN ADMINISTRATOR 1. New 1.0 cm non-mass enhancement in [...] Yoana Ash M.D. Narrative 03/23/2022 12:31 PM LAN ADMINISTRATOR EXAMINATION: 1. MRI EXAMINATION OF THE BREASTS [...] by: Yoana Ash M.D. Abbi Ventura MD IMG MRI PROCEDURES [...] of descending colon documented in this encounter Discontinued Medications Medication Sig Discontinue Reason Start Date End Da te Bydureon BCise 2 mg/0.85 mL auto-injector INJECT 2MG UNDER THE SKIN EVERY WEEK 11/20/2020 02/01/2022 gabapentin (NEURONTIN) 400 mg capsule Take 1 capsule (400 mg total) by mouth 3 (three) times a day 04/05/2021 02/01/2022 documented as of this encounter Historical Medications * This list may reflect changes made after this encounter. levothyroxine (SYNTHROID) 75 mcg tabletIndications :hypothyroidism Take 1 tablet (75 mcg total) by mouth every morning 01/26/2022 added in this encounter Orders Appointment Requests Count Last Ordered Date Fi rst Ordered Date ONCBCN CLINIC APPOINTMENT REQUEST 1 022 documented in this encounter Care Teams Coremaker Machine Relationship Specialty Start Date End Date Dat Benito DO [address] [place] [address] PCP - General Internal Medicine 09/28/21 Aft, Kianna Machado MD PhD [address] [place] [address] Surgeon Surgical Oncology 11/22/17 Santiago Gilbert MD [address] [place] [address] Web Site Manager Gastroenterology 11/22/17 Dmitry Sanderson MD [address] [place] [address] Referring Physician Colon and Rectal Surgery 12/03/1805/06 Abbi Ventura MD [address] [place] [address] Medical Oncologist/Volunteer Recruiter Medical Oncology 12/03/18 Montse Thompson MD [address] [place] [address] Consulting Physician Gynecologic Oncology 12/03/18 Lela Hardy MD PhD [address] [place] [address] Radiation Oncologist Radiation Oncology 12/23/18 Trena Obando MD [address] [place] [address] Consulting Physician Neurology 09/18/21 documented as of this encounter
--- OUTSIDE RECORDS SUMMARY | 2024-04-24 13:38 | XMS_ITS | Encounter Summary ---
Author Organization [facility] Address [address] [place] [address] Phone Care Team Providers Care [employer] Name Role Phone Ravi Smith MD Primary Care Provider [phone] Aft, Kianna Machado MD PhD Unavailable [phone] Santiago Gilbert MD Unavailable [phone] Dmitry Sanderson MD Unavailable [phone] Abbi Ventura MD Unavailable Montse Thompson MD Unavailable [phone] Lela Hardy MD PhD Unavailable [phone] Trena Obando MD Unavailable [phone] Encounter Details Date Type Department Care Team (Late st Contact Info) Description 09/21/2021 1:00 PM CDT Lab [facility] Oncology [address] [place] [address] Malignant neoplasm of upper-inner quadrant of left [...] on file 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 PANEL BEATER Gender Identity Not on file Sexual Orientation [...] rst Ordered Date ONCBCN LAB APPOINTMENT 1 09/21/2021 documented in this encounter Care Teams [employer] Relationship Specialty Start Date End Date Ravi Smith MD PCP - General 11/04/17 09/27/21 Aft, Kianna Machado MD PhD [address] [place] [address] Surgeon Surgical Oncology 11/22/17 Santiago Gilbert MD [address] [place] [address] Instructional Consultant Gastroenterology 11/22/17 Dmitry Sanderson MD [address] [place] [address] Referring Physician Colon and Rectal Surgery 12/03/1805/06 Abbi Ventura MD [address] [place] [address] [address] [place] [address] Medical Oncologist/Recreation Therapy Aide Medical Oncology 12/03/18 Montse Thompson MD [address] [facility] [address] [place] [address] Consulting Physician Gynecologic Oncology 12/03/18 Lela Hardy MD PhD [address] [facility] [address] [place] [address] Radiation Oncologist Radiation Oncology 12/23/18 Trena Obando MD [facility] [address] [place] [address] Consulting Physician Neurology 09/18/21 documented as of this encounter
--- OUTSIDE RECORDS SUMMARY | 2024-04-24 13:38 | XMS_ITS | Encounter Summary ---
Author Organization [facility] Address [address] [facility] [address] [place] [address] Phone Care Team Providers Care Large Animal Veterinarian Name Role Phone Ravi Smith MD Primary Care Provider [phone] Aft, Kianna Machado MD PhD Unavailable [phone] Santiago Gilbert MD Unavailable [phone] Dmitry Sanderson MD Unavailable [phone] Abbi Ventura MD Unavailable Montse Thompson MD Unavailable Lela Lopez MD PhD Unavailable [phone] Trena Obando MD Unavailable [phone] Reason for Visit * Reason Comments Follow-up Encounter Details Date Type Department Care Team (Late st Contact Info) Description 09/18/2021 2:00 PM CDT Office Visit [facility] Obstetrics and Gynecology [address] [facility] 13th [place] [address] [place] [address] Adela Chan, KAM [address] [facility] [phone] [place] [address] BRCA2 gene mutation positive in female (Primary Dx); Healthcare maintenance Social History Tobacco Use Types Packs/Day Years [...] on file 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 Gender Identity Not on file Sexual Orientation Not on file documented as of this encounter Last Filed Vital Signs Vital Sign Reading Time Taken Comments Blood Pressure 116/65 09/18/2021 2:00 PM CDT Pulse 79 09/18/2021 2:00 PM CDT Temperature 36.6 ??C (97.8 ??F) 09/18/2021 2:00 PM CD T Respiratory Rate 16 09/18/2021 2:00 PM CDT Oxygen Saturation 93% 09/18/2021 2:00 PM CDT Inhaled Oxygen Concentration - - Weight 107.5 kg (237 lb) 09/18/2021 2:00 PM CDT Height 173.2 cm (5' 8.19 ) 09/18/2021 2:00 PM CD T Body Mass Index 35.84 09/18/2021 2:00 PM CDT documented in this encounter Progress Notes * Adela Chan, KAM - 09/18/2021 2:00 PM CDT Gynecologic Oncology Return Visit Aleah Gerber 1955 66 y.o. 09/18/2021 Visit Diagnosis 1. BRCA2 gene mutation positive in female 2. Healthcare maintenance Subjective Aleah Gerber is a 66 y.o. female who returns today for scheduled follow up and reports doing quite well from a gynecologic standpoint. She denies pelvic pain, pelvic pressure, abdominal pain, bloating, change in GI/ habit, change in appetite, LE edema or back pain. She received a COVID vaccine July 2020 and 10 days later developed myalgias followed by arthralgias, mucositis and a constellation of other symptoms. Etiology remains unclear and her symptoms have improved as of late. Finally feeling back to her normal self. She is due to see Dr. Ventura and has her CA-125 drawn with blood work at that time. She otherwise denies interval surgeries, illnesses or hospitalizations. 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 Mucinous adenocarcinoma the colon, MSI high s/p FOLFOX, 5FU/LV 05/2018. Cancer Staging Malignant 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, 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) (HCC) Staging form: Breast, AJCC 8th Edition - Pathologic: Stage IIA (pT2, pN0(sn), cM0, G3, ER-, NJ-, HER2-) - Signed by Roger Dorsey MD on 12/23/2018 - Clinical: Stage IIB (cT2, cN0, cM0, G3, ER-, NJ-, HER2-) - Signed by Lela Lopez MD PhD on 01/01/2019 Oncology History Overview Note 63yo (BMI 34.7;PT) who underwent a risk reducing TLH/BSO on 02/13/19. She has a history of synchronous colon cancer and triple-negative invasive carcinoma of left breast with germline BRCA2 mutation.Pap revealed atypical glandular cells with benign biopsy and ECC on colposcopy. Endometrial biopsy with scant inactive endometrium. Pelvic US revealed unremarkable ovaries and uterus with endometrial stripe 3mm. She underwent RATLH/BSO with operative course notable for normal cervix, omental adhesions, normal appearing uterus, tubes and ovaries. 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 - Endometrium: Cystic atropy - Myometrium: Adenomyosis - Cervix: Microglandular hyperplasia - Bilateral fallopian tubes: No histopathologic abnormality - Right ovary: Incidental steroid cell tumor (2 mm in maximum dimension) - Left ovary: No histopathologic abnormality 02/13/2019 Initial Diagnosis Malignant steroid cell tumor (CMS/HCC) Lab Results Component Value Date CA125 7.9 09/12/2020 Review of Systems The patient-completed Review of Systems was reviewed and was scanned as an attachment to this encounter. Patient Active Problem List Diagnosis ??? Malignant [...] significance (YRN) on cervical Pap smear ??? Chronic obstructive pulmonary disease (CMS/HCC) (HCC) ??? Encounter for follow-up examination [...] Obesity ??? VIOLETTE (obstructive sleep apnea) 11/12/2019 ??? Personal history of other medical treatment Hepatic steatosis ??? Personal history of other medical treatment History of BRCA2 mutation ??? SOB (shortness of breath) ??? SOB (shortness of breath) 06/07 chemotherapy ??? TIA (transient ischemic attack) 2008 ??? Type 2 diabetes mellitus (HCC) ??? Vascular disease Past Surgical History: Procedure Laterality Date ??? BLADDER SUSPENSION 2010 ??? BREAST BIOPSY Left 11/12/2017 ??? BREAST BIOPSY Right 2008 Benign ??? BREAST LUMPECTOMY 2017 ??? COLONOSCOPY 2017 ??? HEMICOLECTOMY Left 12/27/2017 Laparoscopic left hemicolectomy ??? HYSTERECTOMY W/ BILATERAL SALPINGOOPHORECTOMY Bilateral 02/13/2019 ??? INCONTINENCE SURGERY 2008 ??? INGUINAL HERNIA REPAIR Right 1970 ??? MASTECTOMY, PARTIAL Left 01/14/2018 Biopsy Breast Needle Localization partial mastectomy (L), Biopsy Delray Lymph Node With Lymphoscintigraphy (L), Insertion Port A Cath (R) with ultrasound and fluroscopy ??? OOPHORECTOMY ??? PORTACATH PLACEMENT 01/2018 right upper chest ??? PORTACATH PLACEMENT Right 2018 ??? TUBAL LIGATION 1992 ??? VAGINAL DELIVERY Allergies Allergen Reactions ??? Oxaliplatin Swollen tongue Throat swelling ??? Tetanus Vaccines And Toxoid Swelling and Rash Current Outpatient Medications: ??? albuterol HFA (PROVENTIL HFA,VENTOLIN HFA,PROAIR HFA) 90 mcg/actuation inhaler ??? ALPRAZolam (XANAX) 0.25 mg tablet ??? amLODIPine (NORVASC) 5 mg tablet ??? Bydureon BCise 2 mg/0.85 mL auto-injector ??? DULoxetine DR (CYMBALTA) 60 mg capsule ??? fluticasone propion-salmeteroL (ADVAIR DISKUS) 500-50 mcg/dose diskus inhaler ??? levothyroxine (SYNTHROID) 88 mcg tablet ??? LORazepam (ATIVAN) 0.5 mg tablet ??? nortriptyline (PAMELOR) 10 mg capsule ??? ondansetron (ZOFRAN) 4 mg tablet ??? propranolol LA (INDERAL LA) 60 mg 24 hr capsule ??? topiramate (TOPAMAX) 25 mg tablet ??? traMADoL (ULTRAM) 50 mg tablet ??? atorvastatin (LIPITOR) 20 mg tablet ??? gabapentin (NEURONTIN) 400 mg capsule ??? hydroCHLOROthiazide (HYDRODIURIL) 12.5 mg tablet ??? Rybelsus 14 mg tablet Social History Tobacco Use ??? Smoking status: Former Smoker Packs/day: 1.00 Types: Cigarettes Start date: 1972 Quit date: 2014 Years since quittin.3 ??? Smokeless tobacco: Never Used Substance Use Topics ??? Alcohol use: Not Currently Comment: socially Family History Problem Relation Age of Onset [...] Problems Brother ??? Anesthesia problems Neg Hx No LMP recorded (lmp unknown). Patient has had a hysterectomy. Screening History Ever used Hormone Replacement Therapy?: No Ever had a mammogram?: Yes Date of Mammogram: 2020 Mammogram result: Normal Ever had a colonoscopy?: Yes Colonoscopy Result: Normal Ever had a bone-density test?: Yes Bone-density test result: Normal Objective Vitals BP 116/65 (BP Location: Right arm, Patient Position: Sitting) Pulse 79 Temp 36.6 ??C (97.8 ??F)(Temporal) Resp 16 Ht 173.2 cm (5' 8.19 ) Wt 107.5 kg (237 lb) LMP (LMP Unknown) SpO2 93% BMI 35.84 kg/m?? Physical exam: General Appearance: well, in no acute distress. HEENT: within normal limits; sclerae non icteric. Cervical/supraclavicular Area: without adenopathy. Chest: clear to auscultation. Heart: regular rate & rhythm. Back: no CVA or paraspinal tenderness. Abdomen: soft, non-tender, without palpable masses; no fluid wave. Well-healed robotic and verticalmidline incisions without herniation. Inguinal Area: without adenopathy. BUS/External: without lesions. Urethra/Urethral Meatus: without masses or tenderness. Bladder: non-tender. Vagina: without lesions or abnormal discharge. Pap smear obtained. Bimanual: no adnexal masses, tenderness, or nodularity. Rectovaginal: confirms above; rectovaginal septum clear, posterior cul de sac smooth. Guaiac is negative. Skin: without rashes. Lower extremities: without edema or calf tenderness. Lab/Radiology/Diagnostic Review: 05/2021 Breast MR DAVIN 04/2021 CT Chest non-contrast DAVIN 10/2018 AGC, neg hrHPV Assessment/Plan The patient is a 65-year-old female, status post a robotic-assisted total laparoscopic hysterectomy/bilateral salpingo-oophorectomy secondary to a BRCA2 mutation. ?? 1. BRCA2 mutation: There is no clinical evidence of primary peritoneal cancer. CA-125 is pending. Signs and symptoms indicative of follow up discussed. 2. Cervical dysplasia: The patient has a remote history of abnormal Pap smears. Pap smear was obtained today. 3. Healthcare maintenance: Mammogram is due October 2021. BMD is UTD. She will follow up re: repeat colonoscopy as she believes the last was two years ago. 4. Follow-up would be ideally in 1 year's time, unless the CA-125 shows an abnormality or issues arise in the interim. Adela Chan NP CC: PCP: Ravi Smith MD Enclosures:Note Patient Care Team: Ravi Smith MD as PCP - General Aft, Kianna Machado MD PhD as Surgeon (Surgical Oncology) Santiago Gilbert MD as Licensing Specialist (Gastroenterology) Dmitry Sanderson MD as Referring Physician (Colon and Rectal Surgery) Abbi Ventura MD as Medical Oncologist/Fire Marshal Refinery (Medical Oncology) Montse Thompson MD as Consulting Physician (Gynecologic Oncology) Lela Lopez MD PhD as Radiation Oncologist (Radiation Oncology) Trena Obando MD as Consulting Physician (Neurology) Cosigned by Montse Thompson MD at 09/18/2021 6:28 PM CDT documented in this encounter Miscellaneous Notes * Treatment Plan - Adela Chan NP - 09/18/2021 2:00 PM CDT Please schedule Aleah Gerber for the following: Requested Order Contrast Indication When CXR CT Chest, Abdomen, and Pelvis CT Abdomen and Pelvis LEEP (during clinic hours) WELDER OXYHYDROGEN Ultrasound MRI Mammogram PET Initiate Survivoship Care Plan Surveillance Labs (CBC w/ Diff, CMP, Magnesium, CA125) Labwork: CA-125 BRCA2+ This week and in one year * Addendum Note - Nathan Lopez - 09/18/2021 2:00 PM CDTAddended by: NATHAN LOPEZ on: 09/18/2021 03:50 PM Modules accepted: Orders documented in this encounter Plan of Treatment Not on file documented as of this encounter Procedures Procedure Name Priority Date/Time Associated Diagnosis Comments PAP AND HIGH RISK HPV, REFLEX TO GENOTYPING Routine 09/18/2021 3:49 PM CDT BRCA2 gene mutation positive in female documented in this encounter Results * Pap and High Risk HPV, reflex to Genotyping (09/18/2021 3:49 PM CDT) Thin prep (Pap test) 09/18/2021 3:49 PM CDT 09/18/2021 5:36 PM CDT Narrative PATHOLOGY [facility] - 09/22/2021 5:14 PM CDT EPIC results best viewed via link to PDF [facility] Galilea Muñiz Laboratory of Surgical Pathology [address] [facility], [place] [address] Note to Patients: This report may contain [...] Gender: ??F : ??1955 (Age: 66) Address: ??[address] [place] [address] ??[address] Hospital #: ??[id number] Service: ??WELDER OXYHYDROGEN Location: ?? Patient Type: ??[facility] SPECIMEN Taken: ??09/18/2021 Received: ??09/18/2021 Accessioned: ??09/19/2021 [...] ??This HPV test was performed at [facility] in [place], [place] utilizing the Gen-Probe Aptima assay. This specimen has been rescreened in accordance with this laboratory's [employer] Technician Program. j/09/22/2021 17:14 IMTIAZ Gray(ASCP) Report Electronically Reviewed and Signed Out By PATTIE Montana(ASCP), [facility] 09/22/2021 17:14:55 Cervicovaginal Cytology (Pap [...] The HPV test was performed by [facility], [address] [place] [address]. Report Images and scanned documents, if included only viewable in PDF version The performance characteristics of some immunohistochemical stains, in-situ hybridization and fluorescence in-situ hybridization tests and immunophenotyping by flow cytometry cited in this report (if any) were determined by the Surgical Pathology Department at [facility] as part of an ongoing software quality manager program and in compliance with federally [...] determined by the Surgical Pathology Department of [facility]. ??It has not been cleared or approved by the U. S. Food and Drug Administration. Adela Chan NP LAB CYTOLOGY ORDERABLES Bethanie wesley Result PATHOLOGY [facility] 3rd Floor [place], [place] [phone] documented in this encounter Visit Diagnoses Diagnosis BRCA2 gene mutation positive in female- Primary Healthcare maintenance documented in this encounter Historical Medications * This list may reflect changes made after this encounter. topiramate (TOPAMAX) 25 mg tabletIndications :pain Take 1 tablet (25 mg total) by mouth 3 (three) times a day 09/12/2021 nortriptyline (PAMELOR) 10 mg capsuleIndication s:Postherpetic Neuralgia,and sleep Take 1 capsule (10 mg total) by mouth nightly 09/13/2021 amLODIPine (NORVASC) 5 mg tabletIndications :hypertension Take 1 tablet (5 mg total) by mouth every morning 08/31/2021 levothyroxine (SYNTHROID) 88 mcg tablet Take 88 mcg by mouth daily 08/01/2021 05/09/2022 added in this encounter Orders Appointment Requests Count Last Ordered Date Fi rst Ordered Date ONCBCN CLINIC APPOINTMENT REQUEST 1 022 documented in this encounter Care Teams Large Animal Veterinarian Relationship Specialty Start Date End Date Ravi Smith MD PCP - General 11/04/17 09/27/21 Aft, Kianna Machado MD PhD [address] [place] [address] Surgeon Surgical Oncology 11/22/17 Santiago Gilbert MD [address] [place] [address] Licensing Specialist Gastroenterology 11/22/17 Dmitry Sanderson MD [address] [place] [address] Referring Physician Colon and Rectal Surgery 12/03/1805/06 Abbi Ventura MD [address] [place] [address] [address] [place] [address] Medical Oncologist/Fire Marshal Refinery Medical Oncology 12/03/18 Montse Thompson MD [address] [facility] [address] [place], [place] [id number] Consulting Physician Gynecologic Oncology 12/03/18 Lela Lopez MD PhD [address] [facility] [address] [place], [place] [id number] Radiation Oncologist Radiation Oncology 12/23/18 Trena Obando MD [address] [place], [place] [id number] Consulting Physician Neurology 09/18/21 documented as of this encounter
--- OUTSIDE RECORDS SUMMARY | 2024-04-24 13:38 | XMS_ITS | Encounter Summary ---
Author Organization [facility] Address [address] [place] [address] Phone Care Team Providers Care Flume Maker Name Role Phone Aft, Kianna Machado MD PhD Unavailable [phone] Santiago Gilbert MD Unavailable [phone] Dmitry Sanderson MD Unavailable [phone] Abbi Ventura MD Unavailable Montse Thompson MD Unavailable [phone] Lela Hardy MD PhD Unavailable [phone] Trena Obando MD Unavailable [phone] Dat Benito DO Primary Care Provider [phone] Encounter Details Date Type Department Care Team (Late st Contact Info) Description 04/17/2022 Orders Only [facility] Oncology [address] [place] [address] Abbi Ventura MD [address] 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 Gender Identity Not on file Sexual Orientation Not on file documented as of this encounter Plan of Treatment Not on file documented as of this encounter Results * (ABNORMAL) Comprehensive metabolic panel (07/04/2022 12:41 PM DIAGNOSTIC ASSISTANT) [facility] Sodium 143 135 - 145 mmol/L [facility] Comment:Testing performed by : [facility], [address] [place] [address] Potassium, pl 4.8 3.3 - 4.9 mmol/L [facility] Chloride 109 97 - 110 mmol/L [facility] CO2 28 22 - 32 mmol/L [facility] Anion gap 6 2 - 15 mmol/L [facility] BUN 16 8 - 25 mg/dL [facility] Creatinine 1.32(H) 0.60 - 1.10 mg/dL [facility] Glucose 158 70 - 199 mg/dL [facility] [...] 2022. Calcium 9.6 8.5 - 10.3 mg/dL [facility] Bilirubin, total 0.3 0.1 - 1.2 mg/dL [facility] Protein, pl 7.0 6.5 - 8.5 g/dL [facility] Albumin 4.3 3.5 - 5.0 g/dL [facility] Alk phos 98 40 - 130 Units/L [facility] ALT 13 7 - 45 Units/L [facility] AST 16 10 - 45 Units/L [facility] Blood 07/04/2022 12:4 1 PM DIAGNOSTIC ASSISTANT 07/04/2022 12:42 PM DIAGNOSTIC ASSISTANT us Abbi Ventura MD LAB BLOOD ORDERABLES Final Resul t [facility] [place] [address] * (ABNORMAL) CBC with auto differential (07/04/2022 12:41 PM DIAGNOSTIC ASSISTANT) WBC 7.9 3.8 - 9.9 K/cumm [facility] Comment:Testing performed by : [address] [address] Hgb 11.8(L) 11.9 - 15.5 g/dL [facility] Comment:Testing performed by : [address] [address] Hct 37.3 35.6 - 45.5 % [facility] Comment:Testing performed by : [address] [address] Plt 199 150 - 400 K/cumm [facility] Comment:Testing performed by : [address] [address] MPV 9.4 9.1 - 12.3 fL [facility] RBC 4.04 3.90 - 5.20 M/cumm [facility] MCV 92.3 81.3 - 96.4 fL [facility] MCH 29.2 27.1 - 33.3 pg [facility] MCHC 31.6(L) 32.3 - 35.7 g/dL [facility] RDW CV 13.4 11.1 - 14.9 % [facility] RDW SD 45.7 35.7 - 48.1 fL [facility] NRBC abs 0.00 0.00 - 0.01 K/cumm [facility] Blood 07/04/2022 12:4 1 PM DIAGNOSTIC ASSISTANT 07/04/2022 12:42 PM DIAGNOSTIC ASSISTANT us Abbi Ventura MD LAB BLOOD ORDERABLES Final Resul t [facility] [place] [address] documented in this encounter Visit Diagnoses Diagnosis Malignant 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, estrogen receptor negative (HCC)- Primary documented in this encounter Orders Appointment Requests Count Last Ordered Date Fi rst Ordered Date ONCBCN CLINIC APPOINTMENT REQUEST 1 022 documented in this encounter Care Teams Flume Maker Relationship Specialty Start Date End Date Dat Benito DO [address] [place] [address] PCP - General Internal Medicine 09/28/21 Aft, Kianna Machado MD PhD [address] [place] [address] Surgeon Surgical Oncology 11/22/17 Santiago Gilbert MD [address] [place] [address] Clock Assembler Gastroenterology 11/22/17 Dmitry Sanderson MD [address] [place] [address] Referring Physician Colon and Rectal Surgery 12/03/1805/06 Abbi Ventura MD [address] [place] [address] [address] [place] [address] Medical Oncologist/Funeral Director/Embalmer/Owner Medical Oncology 12/03/18 Montse Thompson MD [address] [place] [address] [address] [place] [address] Consulting Physician Gynecologic Oncology 12/03/18 Lela Hardy MD PhD [address] [facility] [address] [place] [address] Radiation Oncologist Radiation Oncology 12/23/18 Trena Obando MD [facility] [address] [place] [address] Consulting Physician Neurology 09/18/21 documented as of this encounter
--- OUTSIDE RECORDS SUMMARY | 2024-04-24 13:38 | XMS_ITS | Encounter Summary ---
Author Organization [facility] Address [address] [place] [address] Phone Care Team Providers Care Water Supply Engineer Name Role Phone Ravi Smith MD Primary Care Provider [phone] Aft, Kianna Machado MD PhD Unavailable [phone] Santiago Gilbert MD Unavailable [phone] Dmitry Sanderson MD Unavailable [phone] Abbi Ventura MD Unavailable Montse Thompson MD Unavailable [phone] Lela Hardy MD PhD Unavailable [phone] Aft, Kianna Machado MD PhD Unavailable [phone] Encounter Details Date Type Department Care Team (Late st Contact Info) Description 06/05/2021 Orders Only [facility] Pulmonary [address] [facility] Advanced Medicine 8th [place] [address] [place] [address] Cristobal Dong MD [address] [place] [address] Social History Tobacco Use Types [...] on file 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 FUR TRIMMER Gender Identity Not on file Sexual Orientation Not on file documented as of this encounter Ordered Prescriptions Prescription Sig Dispense Quantity Refills Last Filled Start Date End Date fluticasone propion-salmeteroL (ADVAIR DISKUS) 500-50 mcg/dose diskus inhaler Inhale 1 puff 2 (two) times a day Rinse mouth with water after use. Do not swallow. 60 each 5 06/05/2021 02/19/2023 documented in this encounter Plan of Treatment Not on file documented as of this encounter Visit Diagnoses Not on filedocumented in this encounter Discontinued Medications Medication Sig Discontinue Reason Start Date End Da te fluticasone propion-salmeteroL (ADVAIR DISKUS) 500-50 mcg/dose diskus inhaler Inhale 1 puff 2 (two) times a day Rinse mouth with water after use. Do not swallow. Reorder 07/26/2020 06/05/2021 documented as of this encounter Care Teams Water Supply Engineer Relationship Specialty Start Date End Date Ravi Smith MD PCP - General 11/04/17 09/27/21 Aft, Kianna Machado MD PhD [address] [place] [address] Surgeon Surgical Oncology 11/22/17 Santiago Gilbert MD [address] [place] [address] Sterile Processing Manager Gastroenterology 11/22/17 Dmitry Sanderson MD [address] [place] [address] Referring Physician Colon and Rectal Surgery 12/03/1805/06 Abbi Ventura MD [address] [place] [address] [address] [place], [place] [id number] Medical Oncologist/Spanish Speaking Babysitter Medical Oncology 12/03/18 Montse Thompson MD [address] [facility] [address] [place], [place] [id number] Consulting Physician Gynecologic Oncology 12/03/18 Lela Hardy MD PhD [address] [place] [address] [address] [place], [place] [id number] Radiation Oncologist Radiation Oncology 12/23/18 Aft, Kianna Machado MD PhD [address] [place] [address] [address] [place], [place] [id number] Surgeon Surgical Oncology 12/23/18 09/17/21 documented as of this encounter
--- OUTSIDE RECORDS SUMMARY | 2024-04-24 13:38 | XMS_ITS | Encounter Summary ---
Author Organization [facility] Healthcare Address [address] [place] [address] Care Team Providers Care Mainspring Former Arbor End Name Role Phone Aft, Kianna Machado MD PhD Unavailable [phone] Santiago Gilbert MD Unavailable [phone] Dmitry Sanderson MD Unavailable [phone] Abbi Ventura MD Unavailable Montse Thompson MD Unavailable [phone] Lela Hardy MD PhD Unavailable Trena Obando MD Unavailable [phone] Dat Benito DO Primary Care Provider [phone] Reason for Referral * Diagnostic Imaging (Routine) - Closed Specialty Diagnoses / Procedures Referred By Contronny t Referred To Contact Diagnoses Malignant neoplasm of upper-inner quadrant of left breast in female, estrogen receptor negative (HCC) Procedures Mathew Post Clip Placement Right Abbi Ventura MD [address] [facility] [address] [place] [address] Phone: tel: fax: [address] [address] Referral ID Status Reason Start Date Expiration Date Visits Re quested Visits Authorized [id number] Closed 04/13/2022 05/13/2023 1 1 GER BILLING Reason for Visit * Diagnostic Imaging (Routine) - Closed Specialty Diagnoses / Procedures Referred By Contac t Referred To Contact Diagnoses Malignant neoplasm of upper-inner quadrant of left breast in female, estrogen receptor negative (HCC) Procedures Mathew Post Clip Placement Abbi Reeves MD [address] [facility] [address] [place] [address] Phone: tel: fax: [address] [place] [address] Referral ID Status Reason Start Date Expiration Date Visits Re quested Visits Authorized [id number] Closed 04/13/2022 05/13/2023 1 1 Encounter Details Date Type Department Care Team (Latest Contact Info) Description 04/13/2022 9:05 AM MANAGER BILLING - 04/13/2022 11:59 PM MANAGER BILLING Hospital Encounter [facility] ([facility]) [address] [place] [id number] Malignant neoplasm of upper-inner quadrant of left [...] on file 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 MANAGER BILLING Gender Identity Not on file Sexual Orientation Not on file documented as of this encounter Discharge Instructions * Discharge Instructions* Breanna Brand RT - 04/13/2022 9:17 AM MANAGER BILLING [facility] Discharge Instructions Activity: Avoid exercise for 24 hours after biopsy. Do not lift objects heavier than 5-10 lbs for 24 hours after biopsy. Other instructions: Medication: Remain on your usual medications; check with your regualr doctor for any questions. You may take Tylenol (acetaminophen) 500mg, 2 tablest aevery 6 hours fr pain of needed (and no allergy exists). You should avoid using Aspirin (Excedrin), Ibuprofen (Motrin, Advil)or Aleve for 48 hours after thebiopsy. Other instructions Wound care: Wear your bra all day today, and consider sleeping in one tonight. You may take a bath or shower after on Tegaderm Dressing: Remove the outer dressing after you bath or shower. Don ot remove the steri strips. They will fall off in 5-10 days. Dermabond: Do not scratch, rub or pick at the wound adhesive. It will naturally fall off in 5-10 days. Avoid swimming pools, hot tubs, and tub soaks for 7 days after biopsy. Apply an ice pack to the biopsy site every 2 hours today (for 20 minutes each time) until bedtime. Do not place ice directly on the skin. You will experience some bruising. Special instructions: Please call the [facility] nurses at [phone] or the [facility] at [phone] (8am to 5 pm*) if you experience: Extreme redness, bruising, swelling, severe pain or unusual drainage at the biopsy site Fever of 101.5 F If there are any signs of bleeding, lie down and apply firm pressure for 20 minutes. If bleeding persists call the Breast [facility] or your physician. * If it is after hours, a weekend or holiday, please call your breast surgeon or referring physician. Results: You should receive your biopsy results within 3 working days. If you have not been informed of yourresults after this time please call: The breast imaging nurse in the [facility] at [phone]. The breast surgeon's office at . The referring physicians office GER BILLING documented in this encounter Medications at Time [...] Procedure Name Priority Date/Time Associated Diagnosis Comments MATHEW POST CLIP PLACEMENT RIGHT Schedule Routine, Read Routine (OP Routine) 04/13/2022 9:16 AM MANAGER BILLING Malignant neoplasm of upper-inner quadrant of left breast in female, 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) (HCC) documented in this encounter Results * Mathew Post Clip Placement Right (04/13/2022 9:16 AM MANAGER BILLING) Anatomical Region Laterality Modality Breast Right Mammography 04/13/2022 1:22 PM MANAGER BILLING Addenda Addendum by Nina Lawrence MD on 04/18/2022 5:00 PM MANAGER BILLING This addendum is being issued to add [...] to see Dr. Abbi Ventura on 04/26/2022. GER BILLING ADDENDUM: Pathology from biopsy of the right [...] Nina Lawrence M.D. Impressions 04/13/2022 1:37 PM MANAGER BILLING Successful MRI-guided vacuum-assisted core needle biopsy of [...] Nina Lawrence M.D. Narrative 04/13/2022 1:37 PM MANAGER BILLING EXAMINATION: RIGHT BREAST VACUUM-ASSISTED CORE BIOPSY UTILIZING [...] participated in the procedure. ??Dr. Dale Davis (vice president of customer service) was present and participated in the procedure. [...] the procedure. Dr. Dale Davis (vice president of customer service) was present and participated in the procedure. [...] by: Nina Lawrence M.D. Abbi Ventura MD IMG MAMMO PROCEDURES Edited Resu lt - Final documented in this encounter Visit Diagnoses Diagnosis Malignant neoplasm of upper-inner quadrant of left breast in female, estrogen receptor negative (HCC) documented in this encounter Care Teams [employer] Former Arbor End Relationship Specialty Start Date End Date Dat Benito DO [address] [place] [address] PCP - General Internal Medicine 09/28/21 Aft, Kianna Machado MD PhD [address] [place] [address] Surgeon Surgical Oncology 11/22/17 Santiago Gilbert MD [address] [place] [address] Communications Department Head Gastroenterology 11/22/17 Dmitry Sanderson MD [address] [place] [address] Referring Physician Colon and Rectal Surgery 12/03/1805/06 Abbi Ventura MD [address] [place] [address] Medical Oncologist/Snack Steward Medical Oncology 12/03/18 Montse Thompson MD [address] [place] [address] Consulting Physician Gynecologic Oncology 12/03/18 Lela Hardy MD PhD [address] [facility] [address] [place] [address] Radiation Oncologist Radiation Oncology 12/23/18 Trena Obando MD [address] [place] [address] Consulting Physician Neurology 09/18/21 documented as of this encounter
--- OUTSIDE RECORDS SUMMARY | 2024-04-24 13:38 | XMS_ITS | Encounter Summary ---
Author Organization [facility] Address [address] [place] [address] Phone Care Team Providers Care E Business Manager Name Role Phone Ravi Smith MD Primary Care Provider [phone] Aft, Kianna Machado MD PhD Unavailable [phone] Santiago Gilbert MD Unavailable [phone] Dmitry Sanderson MD Unavailable [phone] Abbi Ventura MD Unavailable Montse Thompson MD Unavailable [phone] Lela Hardy MD PhD Unavailable [phone] Trena Obando MD Unavailable [phone] Dat Benito DO Primary Care Provider [phone] Reason for Referral * Diagnostic Imaging (Routine) - Closed Specialty Diagnoses / Procedures Referred By Contac t Referred To Contact Diagnoses Malignant neoplasm of upper-inner quadrant of left breast in female, estrogen receptor negative (HCC) Procedures Screening Mammogram Bilateral W Abbi Bueno MD [address] 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) Procedures MRI Abdomen Pelvis W WO Contrast Abbi Ventura MD [address], [address] [place] [address] Phone: tel: fax: [facility] Referral ID Status Reason Start Date Expiration Date Visits Re quested Visits Authorized [id number] Closed 09/21/2021 10/21/2022 1 1 * MRI/CAT/PET Scan (Routine) - Closed Specialty Diagnoses / Procedures Referred By Contac t Referred To Contact Radiology Diagnoses Malignant neoplasm of upper-inner quadrant of left breast in female, 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) Procedures CT Chest Abdomen WO Contrast Abbi Ventura MD [address], [address] [place] [address] Phone: tel: fax: [facility] Referral ID Status Reason Start Date Expiration Date Visits Re quested Visits Authorized [id number] Closed 09/21/2021 10/21/2022 1 1 Encounter Details Date Type Department Care Team (Late st Contact Info) Description 09/21/2021 1:30 PM CDT Office Visit [facility] Oncology [address] [place] [address] Abbi Ventura MD [address] [place] [address] Malignant neoplasm of upper-inner quadrant of left [...] on file 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 AIRLINE MECHANIC Gender Identity Not on file Sexual Orientation Not on file documented as of this encounter Last Filed Vital Signs Vital Sign Reading Time Taken Comments Blood Pressure 119/70 09/21/2021 2:03 PM CDT Pulse 83 09/21/2021 2:03 PM CDT Temperature 36.2 ??C (97.2 ??F) 09/21/2021 2:03 PM CD T Respiratory Rate 16 09/21/2021 2:03 PM CDT Oxygen Saturation 97% 09/21/2021 2:03 PM CDT Inhaled Oxygen Concentration - - Weight 107.8 kg (237 lb 9.6 oz) 09/21/2021 2:03 PM CDT Height - - Body Mass Index 35.93 09/18/2021 2:00 PM CDT documented in this encounter Progress Notes * Abbi Ventura MD - 09/21/2021 1:30 PM CDT The Patient Identifying Data: Aleah Gerber is a 66 y.o. female seen in followup today DIAGNOSIS: 1. 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 [employer] My risk showed no mutation in MLH [...] ~ 1.4 cm, Grade 3, ER 0, RI 0, HER-2 IHC 0. Partial mastectomy and [...] Adjuvant radiation therapy completed 02/04/2019. Interval History Body pain better with stopping lipitor and HCTZ. Lymph nodes that she felt internally in her neck when she opens her mouth wide and in left axilla have resolved. Pain behind knees bilaterally in her muscles and tendons have resolved. Neuropathy that felt like tape in the bottom of her feet improved significantly and is no longer affecting function. Overall she feels better. Review of Systems Review of systems positive for symptoms as per interval history. All other review of systems negative. Objective Vitals: Vitals BP 119/70 (BP Location: Right arm) Pulse 83 Temp 36.2 ??C (97.2 ??F) (Temporal) Resp 16 Wt 107.8 kg (237 lb 9.6 oz) LMP (LMP Unknown) SpO2 97% BMI 35.93 kg/m?? PERFORMANCE STATUS: ECOG 1 SKIN: Normal [...] aredisplayed. Labs - Hematology Latest Ref Range 09/29/20 03/23/21 09/21/21 WBC 3.8 - 9.9 K/cumm 7.5 9.9 7.3 Total Hb, POC 11.9 - 15.5 g/dL 12.2 11.7 (A) 12.0 Hct 35.6 - 45.5 % 37.2 35.8 37.4 Plt 150 - 400 K/cumm 166 178 200 Neutrophil abs 1.7 - 6.5 K/cumm 5.0 6.7 (A) 5.2 Lymphocytes, abs 0.8 - 3.3 K/cumm 1.5 1.9 1.2 (A) Abnormal value Comments are available for some flowsheets but are not being displayed. Lab Results Component Value Date SODIUM 139 09/21/2021 POTASSIUM 4.0 09/21/2021 CO2 23 09/21/2021 BUNSER 20 09/21/2021 GLUCOSE 121 09/21/2021 CREATININE 1.51 (H) 09/21/2021 CALCIUM 9.6 09/21/2021 CHLORIDE 107 09/21/2021 ALBUMIN 4.4 09/21/2021 AST 22 09/21/2021 ALT 13 09/21/2021 ALKPHOS 111 09/21/2021 BILITOT 0.4 09/21/2021 PROT 7.0 09/21/2021 ANIONGAP 9 09/21/2021 Tumor Marker History Some values may be hidden. Unless noted otherwise, only the newest values recorded on each date aredisplayed. Tumor Markers Latest Ref Range 09/29/20 10/14/20 03/23/21 CEA <=5.0 ng/mL 2.1 1.5 Protein, sr 6.2 - 8.2 g/dL 7.0 Albumin 3.2 - 5.0 g/dL 4.5 Alpha-1 Globulin 0.2 - 0.4 g/dL 0.3 Alpha-2 Globuliin 0.5 - 1.0 g/dL 0.8 Beta 1 globulin 0.3 - 0.6 g/dL 0.4 Beta-2 Globulin 0.2 - 0.6 g/dL 0.4 Gamma Globulin 0.5 - 1.7 g/dL 0.6 SPE, interp Please see comment Comments are available for some flowsheets but are not being displayed. MRI Breast Bilateral W WO Contrast Narrative: EXAMINATION: 1. MRI EXAMINATION OF THE BREASTS WITH AND WITHOUT CONTRAST 2. 3D POST PROCESSING ON A DEDICATED 3D WORKSTATION HISTORY: 65-year-old female with history of left breast carcinoma treated conservatively in 2018. BRCA2 positive. DATE OF LAST MENSTRUAL PERIOD: Postmenopausal TECHNIQUE: MRI examination of the breasts per breast tumor protocol with and without gadolinium contrast. A dedicated breast imaging coil was used. The images were transferred to a breast CAD system for 3D post processing and contrast kinetics analysis. Contrast: Dotarem, 20 ml COMPARISON: 2017 breast MRI, mammogram 10/06/2020 BREAST COMPOSITION: Heterogeneous fibroglandular tissue BACKGROUND PARENCHYMAL ENHANCEMENT: Mild FINDINGS: Left breast conservation therapy changes. No suspicious enhancing abnormalities in either breast. Stable area of enhancement in the right anterior lower lung field, unchanged from at least 2018. No abnormally enlarged lymph nodes are identified in the visualized portions of either axilla. Impression: No MR evidence of malignancy. Continued annual surveillance with breast MRI and bilateral mammography recommended. OVERALL FINAL ASSESSMENT: BI-RADS Category 1: Negative. Electronically signed by: Bety Mendoza M.D. Recent labs, radiology and pathology reviewed in [facility] ASSESSMENT: T4bN0 disease, Stage IIC colon adenocarcinoma- [...] to chemotherapy was at grade 1 level. PLAN: Mammogram due 11/2021 and I have ordered that D/w patient about Guardant Reveal and she wants that ordered ROV 6 months with scans and labs Check Ca 125 to screen for primary peritoneal carcinomatosis Patient does not remember when she last had her colonoscopy. She thinks she had it last year. I have asked her to call Dr. Gilbert, her local airline mechanic, and I will also call his office to discuss f/u colonoscopy. Aleah Gerber will follow up as directed above, she was encouraged to call in the interim with questions or concerns. We will continue to monitor and review for side effects from treatment. Abbi Ventura MD slip bridge operator Division of Oncology Section of Medical Oncology [facility] [employer] Paralegal completed by using M*Modal Fluency Direct speaking software, therefore, transcriptionvariances may occur. documented in this encounter Plan of Treatment Not on file documented as of this encounter Results * CA 125 (02/01/2022 3:28 PM CDT) CA 125 ag 9.6 0.0 - 38.0 units/mL [facility] Comment: Interpretive Data The Ob CA 125 assay procedure was used. Results from different manufacturers or methods may not be comparable. Serial testing should be performed using the same method. Blood 02/01/2022 3:28 PM CDT 02/01/2022 6:09 PM CDT Abbi Ventura MD LAB BLOOD ORDERABLES Final Resul t Performing Organization Address [facility] [place] [address] * CEA (02/01/2022 3:28 PM CDT) Pathologist [facility] CEA 2.1 <=5.0 ng/mL [facility] Comment: Interpretive Data: Reference Range: Non-Smokers: [...] Resul t Performing Organization Address [facility] [place] [address] * (ABNORMAL) Comprehensive metabolic panel (02/01/2022 3:28 PM CDT) Pathologist [facility] Sodium 139 135 - 145 mmol/L [facility] Comment:Testing performed by : [facility], [address] [place] [address] Potassium, pl 4.2 3.3 - 4.9 mmol/L [facility] Chloride 105 97 - 110 mmol/L [facility] CO2 25 22 - 32 mmol/L [facility] Anion gap 9 2 - 15 mmol/L [facility] BUN 21 8 - 25 mg/dL [facility] Creatinine 1.25(H) 0.60 - 1.10 mg/dL [facility] Glucose 192 70 - 199 mg/dL [facility] Comment: Interpretive Data Fasting glucose >/= [...] 2017. Calcium 9.6 8.5 - 10.3 mg/dL [facility] Bilirubin, total 0.3 0.1 - 1.2 mg/dL [facility] Protein, pl 7.1 6.5 - 8.5 g/dL [facility] Albumin 4.1 3.5 - 5.0 g/dL [facility] Alk phos 108 40 - 130 Units/L [facility] ALT 12 7 - 45 Units/L [facility] AST 18 10 - 45 Units/L [facility] Blood 02/01/2022 3:28 PM CDT 02/01/2022 3:28 PM CDT us Abbi Ventura MD LAB BLOOD ORDERABLES Final Resul t [facility] [place] [address] * (ABNORMAL) CBC with auto differential (02/01/2022 3:28 PM CDT) [facility] WBC 7.3 3.8 - 9.9 K/cumm [facility] Comment:Testing performed by : [facility], [address] [place] [address] Hgb 12.3 11.9 - 15.5 g/dL [facility] Comment:Testing performed by : [address] [address] Hct 38.3 35.6 - 45.5 % [facility] Comment:Testing performed by : [address] [address] Plt 180 150 - 400 K/cumm [facility] Comment:Testing performed by : [facility], [address] [facility] [address] MPV 9.4 9.1 - 12.3 fL [facility] RBC 4.25 3.90 - 5.20 M/cumm [facility] MCV 90.1 81.3 - 96.4 fL [facility] MCH 28.9 27.1 - 33.3 pg [facility] MCHC 32.1(L) 32.3 - 35.7 g/dL [facility] RDW CV 13.5 11.1 - 14.9 % [facility] RDW SD 43.8 35.7 - 48.1 fL [facility] NRBC abs 0.00 0.00 - 0.01 K/cumm [facility] Blood 02/01/2022 3:28 PM CDT 02/01/2022 3:28 PM CDT Abbi Ventura MD LAB BLOOD ORDERABLES Final Resul t [facility] Department [place] [address] * CT Chest Abdomen WO Contrast (01/27/2022 [...] by: Willie Bullock M.D. Abbi Ventura MD IM CT PROCEDURES Final Result * MRI Abdomen Pelvis W WO Contrast [...] MD IMG MRI PROCEDURES Final Result * Screening Mammogram Bilateral W Mathew (09/28/2021 2:39 PM CDT) Anatomical Region Laterality Modality Breast Bilateral Mammography Narrative 09/29/2021 9:59 AM CDT Mammogram Technique: Bilateral Digital Breast Tomosynthesis, Bilateral C-view 2D Screening mammogram. ??Views obtained: ??bilateral craniocaudal and bilateral mediolateral oblique. ??Computer Aided Detection was performed. Mammogram Findings: The present examination has been compared to prior imaging studies performed at [facility] on 11/05/2017, 08/11/2018 and 10/06/2020. There are [...] compared to prior imaging studies performed at [facility] on 11/05/2017, 08/11/2018 and 10/06/2020. There are [...] Discontinue Reason Start Date End Da te atorvastatin (LIPITOR) 20 mg tabletIndications:hyperl ipidemia Take 20 mg by mouth nightly Other 02/21/2018 08/22/2021 hydroCHLOROthiazide (HYDRODIURIL) 12.5 mg tabletIndications:hypert ension Take 12.5 mg by mouth every morning Other 02/24/2018 08/22/2021 documented as of this encounter Orders Appointment Requests Count Last Ordered Date Fi rst Ordered Date ONCBCN CLINIC APPOINTMENT REQUEST 2 022 09/21/2021 ONCBCN LAB APPOINTMENT 1 02/01/2022 documented in this encounter Care Teams E Business Manager Relationship Specialty Start Date End Date Ravi Smith MD PCP - General 11/04/17 09/27/21 Dat Benito DO [address] [place] [address] PCP - General Internal Medicine 09/28/21 Aft, Kianna Machado MD PhD [address] [place] [address] Surgeon Surgical Oncology 11/22/17 Santiago Gilbert MD [address] [place] [address] Lead Pressman Gastroenterology 11/22/17 Dmitry Sanderson MD [address] [place] [address] Referring Physician Colon and Rectal Surgery 12/03/1805/06 Abbi Ventura MD [address] [place] [address] [address] [place] [address] Medical Oncologist/Job Putter Up And Ticket Preparer Medical Oncology 12/03/18 Montse Thompson MD [address] [facility] [address] [place] [address] Consulting Physician Gynecologic Oncology 12/03/18 Lela Hardy MD PhD [address] [place] [address] Radiation Oncologist Radiation Oncology 12/23/18 Trena Obando MD [address] [place] [address] Consulting Physician Neurology 09/18/21 documented as of this encounter
--- OUTSIDE RECORDS SUMMARY | 2024-04-24 13:38 | XMS_ITS | Encounter Summary ---
Author Organization [facility] Healthcare Address [address] [place] [address] Care Team Providers Care Snowmaker Name Role Phone Aft, Kianna Machado MD PhD Unavailable [phone] Santiago Gilbert MD Unavailable [phone] Dmitry Sanderson MD Unavailable [phone] Abbi Ventura MD Unavailable Montse Thompson MD Unavailable [phone] Lela Hardy MD PhD Unavailable [phone] Trena Obando MD Unavailable [phone] Dat Benito DO Primary Care Provider [phone] Reason for Referral * MRI/CAT/PET Scan (Routine) - Closed Specialty Diagnoses / Procedures Referred By Contac t Referred To Contact Radiology Diagnoses Malignant neoplasm of upper-inner quadrant of left breast in female, estrogen receptor negative (HCC) Procedures MRI Guided Breast Biopsy Right Abbi Ventura MD [address] [place] [address] Phone: tel: fax: [address] [phone] Referral ID Status Reason Start Date Expiration Date Visits Re quested Visits Authorized [id number] Closed 03/23/2022 04/22/2023 1 1 MOBILE SERVICE STATION MANAGER Reason for Visit * MRI/CAT/PET Scan (Routine) - Closed Specialty Diagnoses / Procedures Referred By Vijaya simpson Referred To Contact Radiology Diagnoses Malignant neoplasm of upper-inner quadrant of left breast in female, estrogen receptor negative (HCC) Procedures MRI Guided Breast Biopsy Right Abbi Ventura MD [address] [place] [address] Phone: tel: fax: [address] [place] [address] Referral ID Status Reason Start Date Expiration Date Visits Re quested Visits Authorized [id number] Closed 03/23/2022 04/22/2023 1 1 Encounter Details Date Type Department Care Team (Latest Contact Info) Description 04/13/2022 7:21 AM AUTOMOBILE SERVICE STATION MANAGER - 04/13/2022 9:04 AM AUTOMOBILE SERVICE STATION MANAGER Hospital Encounter [facility] [address] [place] [address] Malignant neoplasm of upper-inner quadrant of left [...] on file 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 AUTOMOBILE SERVICE STATION MANAGER Gender Identity Not on file Sexual [...] Procedure Name Priority Date/Time Associated Diagnosis Comments SURGICAL PATHOLOGY Routine 04/13/2022 8:21 AM AUTOMOBILE SERVICE STATION MANAGER Malignant 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, 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) (HCC) MRI GUIDED BREAST BIOPSY RIGHT Schedule Routine, Read Routine (OP Routine) 04/13/2022 8:06 AM AUTOMOBILE SERVICE STATION MANAGER Malignant neoplasm of upper-inner quadrant of left breast in female, 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) (HCC) documented in this encounter Results * Surgical pathology (04/13/2022 8:21 AM AUTOMOBILE SERVICE STATION MANAGER) Tissue (Breast biopsy, needle core) 04/13/2022 8:21 AM AUTOMOBILE SERVICE STATION MANAGER Comment:MRI Guided Breast Bi opsy Right - BI-RADS 4B - New upper outer right breast clumped nonmass enhancement measuring 1.0 cm - moderate suspicion Narrative PATHOLOGY [facility] - 04/16/2022 2:54 PM AUTOMOBILE SERVICE STATION MANAGER EPIC results best viewed via link to PDF [facility] [place] [address] Note to Patients: This report may contain [...] ??F : ??1955 (Age: 66) Address: ??[address] [place], [place] ??[address] Hospital #: ??[id number] Taken:04/13/2022 Received:04/13/2022 Reported: 04/16/2022 Patient Type: [facility] Ancillary ?? Service: UNKNOWN Location: Physician(s): ??MD Abbi Tadeo M.D. Dat Benito, DO Diagnosis: Breast, right, MRI guided biopsy ? - Invasive ductal carcinoma ? - Histologic grade = at least intermediate ? - Greatest dimension in core material = 1.5 mm ?- Lymphovascular invasion = absent ? - Ductal carcinoma in situ ?- Nuclear grade = 3/3 without necrosis ? - Additional findings = columnar cell change with associated microcalcifications 04/16/2022 08:25 By this signature, I attest that the above diagnosis is based upon my personal examination of the slides(and/or other material indicated in the diagnosis). Larisa Rdz M.D. Report Electronically Reviewed and Signed Out By ??Larisa Rdz M.D. 04/16/2022 14:54:29 Microscopic Description and Comment: Microscopic examination substantiates the above cited diagnosis. Small foci of invasive ductal carcinoma are present in multiple cores and whether these represent one focus or multiple foci cannot be determined. Due to the small size of the invasive component, accurate grading can not be provided. Melanie Rodriguez M.D. History: The patient is a 66-year-old woman with history of invasive ductal carcinoma of the left breast status post partial mastectomy and adjuvant chemotherapy, presenting for non-mass enhancement in the right breast. The patient has history of mucinous adenocarcinoma of the colon. ??Operative procedure: Right breast biopsy, BI-RADS 4B. Specimen(s) Received: A: Mri guided breast biopsy right birads 4b Gross Description: Received in formalin, labeled with the patient? ? s identifiers and MRI guided breast biopsy [id number] 4B are 19 yellow and white cores of hemorrhagic fibrofatty tissue (measuring 1.9-3.1 cm each in length by 0.2-0.4 cm in diameter). ?? Labeled A1 to A10. Jar 0. Formalin fixation time: ??9.5 hours sxst/04/13/2022 16:02 PA(s): Cynthia García By this signature, I attest that the above diagnosis is based upon my personal examination of the slides(and/or other material). Addenda/Procedures Addendum Ordered:04/17/2022tatus:Signed OutAddendum Complete:04/17/2022y:Larisa Rdz M.D.Addendum Signed Out:04/17/2022 Addendum Diagnosis ? BREAST BIOMARKER RESULTS ? ESTROGEN RECEPTOR: ?Negative ? Levi Score: ?Proportion ??0/5 ?Intensity ??0/3 ?Total Score 0/8 ? PROGESTERONE RECEPTOR: ?Negative ? Levi Score: ?Proportion ??0/5 ?Intensity ??0/3 ?Total Score 0/8 ? HER-2: ?Negative (score 1+ by IHC) ? TUMOR HISTOLOGIC TYPE: ?Invasive ductal carcinoma (no special type) ? HISTOLOGICAL GRADE BY ESBR CRITERIA: ?2 ? Technical Notes ? Estrogen receptor (ER), progesterone receptor (AK), and HER2 were evaluated by immunohistochemistry (IHC) ? by morphometric analysis in routine formalin-fixed paraffin-embedded tissue using a proprietary polymer- ? based detection system and instrumentation by [employer] per tail board worker's ? recommendation. ? The IHC results for ER (antibody SP1) and AK (antibody 1E2) were quantified and interpreted (positive vs ? negative) using the Levi score (total score range = 0 to 8; positive >2) (see: Mod Pathol 11:155, 1997; J Clin ? Oncol 17:1474, 1998; Mod Pathol 17:1545, 2003; Arch Pathol Lab Med 144:545, 2020). ? Pathway Her2 is a trademark of [employer] The IHC results for Pathway Her2 (antibody 4B5 ? rabbit monoclonal antibody) were scored in compliance with the ASCO/CAP guidelines (see: J Clin Oncol ? 25:118, 2007; Arch Pathol Lab Med 131:18, 2007, Arch Pathol Lab Med 142:1364, 2018). ? Levi score for estrogen and progesterone receptor evaluation: ? The Levi score combines the percentage of positive cells [proportion score: 0 (0%), 1 (<1%), 2 (1-10%), 3 (11- ? 33%), 4 (34-66%), 5 (>67%)] and the intensity of the reaction product (intensity score: 0-3). ??The two scores are ? added together for a final score. ??A combined score of >2 is considered positive. ? Her2 Interpretation guide ? Score 0: No membrane staining is observed, or immunoreactivity in <=10% of tumor cells; score 1+: incomplete ? membrane staning that is faint/barely perceptible and within >10% of tumor cells; score 2+: circumferential ? membrane staining that is incomplete and/or weak/moderate and within >10% of tumor cells, or complete and ? circumferential membrane staining that is intense and within <=10% of tumor cells; score 3+: intense and ? uniform circumferential membrane staining in >10% of tumor cells. ??A strong membranous (chicken-wire) ? pattern should be present. ? Tests with score of 0 or 1+ are reported as negative. ??A score of 2+ is reported as equivocal and a score of 3+ is ? positive. ??Reflex FISH testing is performed for all 2+ results. ? Control expression, sample adequacy and uniformity of staining of the above tests are all verified. ??The duration of ? formalin fixation is reported in the gross description on the primary report. ??This assay has not been validated on ? decalcified tissues. Results obtained on decalcified specimens should be interpreted with caution given the ? increased likelihood of false negativity. ?? By this signature, I attest that the above diagnosis is based upon my personal examination of the slides(and/or other material indicated in the diagnosis). Larisa Rdz M.D.Report Electronically Reviewed and Signed Out By ??Larisa Rdz M.D. ??04/17/2022 17:54:59Melanie Rodriguez M.D. ?? The performance characteristics of some immunohistochemical stains, fluorescence in-situ hybridization tests and immunophenotyping by flow cytometry cited in this report (if any) were determined by the Surgical Pathology and Flow Cytometry Departments at [facility] as part of an ongoing water quality control engineer program and in compliance with federally [...] Surgical Pathology and Flow Cytometry Departments of [facility]. ??It has not been cleared or approved by the U. S. Food and Drug Administration. IMAGES AND SCANNED DOCUMENTS, IF INCLUDED, ONLY VIEWABLE IN PDF VERSION OF REPORT Abbi Ventura MD LAB PATHOLOGY ORDERABLES Final R esult PATHOLOGY [facility] 3rd Floor [place], [place] [phone] * MRI Guided Breast Biopsy Right (04/13/2022 8:06 AM AUTOMOBILE SERVICE STATION MANAGER) Anatomical Region Laterality Modality Breast Right Magnetic Resonan ce 04/13/2022 1:22 PM AUTOMOBILE SERVICE STATION MANAGER Addenda Addendum by Nina Lawrence MD on 04/18/2022 5:00 PM AUTOMOBILE SERVICE STATION MANAGER This addendum is being issued to add [...] to see Dr. Abbi Ventura on 04/26/2022. MOBILE SERVICE STATION MANAGER ADDENDUM: Pathology from biopsy of the right [...] Nina Lawrence M.D. Impressions 04/13/2022 1:37 PM AUTOMOBILE SERVICE STATION MANAGER Successful MRI-guided vacuum-assisted core needle biopsy of [...] Nina Lawrence M.D. Narrative 04/13/2022 1:37 PM AUTOMOBILE SERVICE STATION MANAGER EXAMINATION: RIGHT BREAST VACUUM-ASSISTED CORE BIOPSY UTILIZING [...] in the procedure. ??Dr. Dale Davis (radiology clerk) was present and participated in the procedure. [...] in the procedure. Dr. Dale Davis (radiology clerk) was present and participated in the procedure. [...] by: Nina Lawrence M.D. Abbi Ventura MD [facility] MRI PROCEDURES Edited Result - Final documented [...] intravenous, Once in imaging, contrast, Starting on Sat04/13/22 at 0807, For 1 dose Contrast Given 04/13/2022 8:07 AM AUTOMOBILE SERVICE STATION MANAGER 20 mL lidocaine (XYLOCAINE) 10 mg/mL (1 %) injection As needed, Starting on Sat04/13/22 at 0817, Intra-Procedure (IR), Indications: Administration of Local AnesthesiaIndications:Admin istration of Local Anesthesia Given 04/13/2022 8:17 AM AUTOMOBILE SERVICE STATION MANAGER 5 mL lidocaine-EPINEPHrine (XYLOCAINE with EPI) 2 %-1:100,000 injection As needed, Starting on Sat04/13/22 at 0818, Intra-Op, Indications: Administration of Local AnesthesiaIndications:Admin istration of Local Anesthesia Given 04/13/2022 8:18 AM AUTOMOBILE SERVICE STATION MANAGER 20 mL Right Breast documented in this encounter Care Teams Snowmaker Relationship Specialty Start Date End Date Dat Benito DO [address] [place] [address] PCP - General Internal Medicine 09/28/21 Aft, Kianna Machado MD PhD [address] [place] [address] Surgeon Surgical Oncology 11/22/17 Santiago Gilbert MD [address] [place] [address] Newspaper Carriers Supervisor Gastroenterology 11/22/17 Dmitry Sanderson MD [address] [place] [address] Referring Physician Colon and Rectal Surgery 12/03/1805/06 Abbi Ventura MD [address] [place] [address] [address] [place] [address] Medical Oncologist/Gold Plater Medical Oncology 12/03/18 Montse Thompson MD [address] [place] [address] Consulting Physician Gynecologic Oncology 12/03/18 Lela Hardy MD PhD [address] [place], [place] [id number] Radiation Oncologist Radiation Oncology 12/23/18 Trena Obando MD [address] [place], [place] [id number] Consulting Physician Neurology 09/18/21 documented as of this encounter
--- OUTSIDE RECORDS SUMMARY | 2024-04-24 13:38 | XMS_ITS | Encounter Summary ---
Author Organization [facility] Healthcare Address [address] [place] [address] Care Team Providers Care Search And Rescue Officer Name Role Phone Ravi Smith MD Primary Care Provider [phone] Aftatiana, Kianna Machado MD PhD Unavailable [phone] Santaigo Gilbert MD Unavailable [phone] Dmitry Sanderson MD Unavailable [phone] Abbi Ventura MD Unavailable Montse Thompson MD Unavailable [phone] Lela Hardy MD PhD Unavailable [phone] Trena Obando MD Unavailable [phone] Encounter Details Date Type Department Care Team (Latest Contact Info) Description 09/18/2021 3:49 PM CDT - 09/18/2021 11:59 PM T Hospital Encounter [facility] PATHOLOGY [address] [address] Discharge Disposition: Discharge to home or self [...] on file 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 INDUSTRIAL SALES REPRESENTATIVE Gender Identity Not on file [...] on filedocumented in this encounter Care Teams Search And Rescue Officer Relationship Specialty Start Date End Date Ravi Smith MD PCP - General 11/04/17 09/27/21 Aft, Kianna Machado MD PhD [address] [place] [address] Surgeon Surgical Oncology 11/22/17 Santiago Gilbert MD [address] [place] [address] Physician Coding Specialist Gastroenterology 11/22/17 Dmitry Sanderson MD [address] [place] [address] Referring Physician Colon and Rectal Surgery 12/03/1805/06 Abbi Ventura MD [address] [facility] [address] [place] [address] Medical Oncologist/Financial Recording Clerk Medical Oncology 12/03/18 Montse Thompson MD [address] [facility] [address] [place] [address] Consulting Physician Gynecologic Oncology 12/03/18 Lela Hardy MD PhD [address] [place] [address] Radiation Oncologist Radiation Oncology 12/23/18 Trena Obando MD [address] [place] [address] Consulting Physician Neurology 09/18/21 documented as of this encounter
--- OUTSIDE RECORDS SUMMARY | 2024-04-24 13:39 | XMS_ITS | Encounter Summary ---
Author Organization [facility] Address [address] [place] [address] Phone Care Team Providers Care Pole Framer Name Role Phone Ravi Smith MD Primary Care Provider [phone] Aft, Kianna Machado MD PhD Unavailable [phone] Santiago Gilbert MD Unavailable [phone] Dmitry Sanderson MD Unavailable [phone] Abbi Ventura MD Unavailable Montse Thompson MD Unavailable [phone] Lela Hardy MD PhD Unavailable [phone] Aft, Kianna Machado MD PhD Unavailable [phone] Reason for Referral * (Routine) - Closed Specialty Diagnoses / Procedures Referred By Contac t Referred To Contact Diagnoses Asthma-COPD overlap syndrome (HCC) Procedures Pulmonary Function Test -[facility] Adult PFT Lab- CAM-8D; Spirometry, Oxygen Assessment Titration Cristobal Dong MD [address] [place] [address] Phone: tel: fax: Referral ID Status Reason Start Date Expiration Date Visits Re quested Visits Authorized [id number] Closed 03/21/2021 04/20/2022 1 1 ONIC ANALYST * Diagnostic Imaging (Routine) - Closed Specialty Diagnoses / Procedures Referred By Contac t Referred To Contact Diagnoses Asthma-COPD overlap syndrome (HCC) Procedures XR Chest Pa Lateral 2 Views Cristobal Dong MD [address] [place] [address] Phone: tel: fax: [facility] [address] [facility] [place] [address] Referral ID Status Reason Start Date Expiration Date Visits Re quested Visits Authorized [id number] Closed 03/21/2021 04/20/2022 1 1 ONIC ANALYST Encounter Details Date Type Department Care Team (Late st Contact Info) Description 03/21/2021 2:30 PM HARMONIC ANALYST Office Visit [facility] Pulmonary [address] [facility] [address] 8th [place] [address] [place] [address] Cristobal Dong MD [address] [place] [address] Asthma-COPD overlap syndrome (CMS/HCC) (HCC) (Primary Dx) Social History Tobacco [...] on file 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 HARMONIC ANALYST Gender Identity Not on file Sexual Orientation Not on file documented as of this encounter Last Filed Vital Signs Vital Sign Reading Time Taken Comments Blood Pressure 115/69 03/21/2021 1:53 PM HARMONIC ANALYST Pulse 85 03/21/2021 1:53 PM HARMONIC ANALYST Temperature 36.3 ??C (97.3 ??F) 03/21/2021 1:53 PM CS T Respiratory Rate 18 03/21/2021 1:53 PM HARMONIC ANALYST Oxygen Saturation 95% 03/21/2021 1:53 PM HARMONIC ANALYST Inhaled Oxygen Concentration - - Weight 114.5 kg (252 lb 6.4 oz) 03/21/2021 1:53 PM HARMONIC ANALYST Height 175.3 cm (5' 9 ) 03/21/2021 1:53 PM HARMONIC ANALYST Body Mass Index 37.27 03/21/2021 1:53 PM HARMONIC ANALYST documented in this encounter Progress Notes * Case, Tomas Soliman MD - 03/21/2021 2:30 PM CST [facility] OF MEDICINE, LUNG CENTER, PULMONARY MEDICINE, [facility], 8TH FLOOR, [facility], [address] [place], [place] [id number] PROBLEM LIST: 1. Mild persistent asthma. a. Positive methacholine challenge test March 2019. 2. Obstructive sleep apnea on APAP. 1. Not using due to issues with water [...] anticoagulation. 9. Diverticulitis. 10. Status post hysterectomy. INTERVAL HISTORY Ms. Gerber is a very pleasant 65 y.o. female [facility] for a history of mild persistent asthma. She reports increased dyspnea on exertion compared to her baseline for about 1 month. She does not recall any recent URI symptoms and denies cough or sputum production. She has been vaccinated against COVID and Flu. She has also noticed intermittent wheezing. She is using her prn albuterol 1-2 times per day with significant symptomatic improvement. She is not awaking from sleep with dyspnea. She has significant dyspnea when walking on flat surface for about 50 feet or going up one flight of stairs. Her baseline is being able to walk a few blocks before developing dyspnea. She is prescribed advair and uses it consistently in the morning but struggles to remember to use it at night time. Of note, she reports that she has not used her CPAP in a few months. She has reported issues with her tubing system accumulating condensation that splashes in her face while trying to sleep. She has not been able to find a solution to this problem. MEDICATIONS: ??? Xanax ??? lipitor ??? cymbalta ??? advair 500-50 mcg/dose diskus - 1 puff bid ??? Gabapentin ??? HCTZ ??? zofran ??? Propranolol REVIEW OF SYSTEMS: A 12 point ROS was obtained, pertinent positive and negatives are documented in HPI. Other systems reviewed were negative. Objective Vitals: Vitals BP 115/69 Pulse 85 Temp 36.3 ??C (97.3 ??F) Resp 18 Ht 175.3 cm (5' 9 ) Wt 114.5 kg (252 lb 6.4 oz) LMP (LMP Unknown) SpO2 95% BMI 37.27 kg/m?? Wt Readings from Last 3 Encounters: 03/21/21 114.5 kg (252 lb 6.4 oz) 12/09/20 113.4 kg (250 lb) 11/14/20 112.9 kg (249 lb) Physical examination: General: well appearing, no distress Eyes: No conjunctival injection HENT: NCAT Neck: no adenopathy CV: regular rate, regular rhythm, no murmurs Lungs: CTAB Abd: soft, NT, ND Ext: no edema Neuro: A&O x 3 Psych: normal mood DATA Spirometry: FVC 2.38 L (65 of reference), FEV1 1.86 (65 of reference), FEV1/FVC ratio 78 Interpretation: there is no significant change compared to her last visit. There is a moderate restrictive ventilatory defect. Six Minute Walk Test Resting oxygen saturation was 100 % with a resting heart rate of 78 and while walking 1275 feet, the oxygen saturation did not decrease significantly, and HR increased to 111. Interpretation: she has normal oxygenation at rest and with exertion while breathing room air. She does not require supplemental oxygen Chest CT 10/06/2020 - no nodules seen, no pleural effusions - normal lung walsh without emphysema, without consolidation or other signs of acute or chronic lung disease ASSESSMENT: Ms. Gerber is a 65 y.o. female with mild persistent asthma and a restrictive ventilatory defect with stable PFT's but symptoms suggestive of exacerbation of her asthma. PLAN: 1. Mild persistent asthma with suspected mild exacerbation. Given her wheezing and increased dyspnea, we will obtain a RVP and CXR. Provided these tests return normal, we will likely call in a 5 day course of prednisone for her to see if it helps resolve her symptoms to baseline. She was encouragedto use her Advair twice daily instead of daily and find a way to prompt herself to do this if possible since it will likely lead to improvement in her symptoms as well. 2. Lung cancer screening. She quit smoking in 2014. Her CT chest obtained by oncology in October did not show any nodules or masses. She should have a repeat CT scan for lung cancer screening in October 2021 unless imaging is repeated by oncology or another provided 3. VIOLETTE. Encouraged patient to reach out to sleep clinic again to report unresolved issue of condensation in her tubing leading to droplets onto her face. 4.. RTC in 6 months or sooner if needed with spirometry and 6-min walk ADDENDUM: CXR reviewed and compared to prior dated 07/26/2020. Cardiac silhouette and mid sternal contours arestable. Lungs are clear. No pleural effusion or pneumothorax. RVP negative. Plan for Prednisone 20mg daily for 5 days and will reinforce twice daily use of her Advair. Tomas Zamora Jr, MD Pulmonary/Critical Care Fellow Cosigned by Cristobal Dong MD at 03/22/2021 1:32 PM HARMONIC ANALYST ONIC ANALYST ONIC ANALYST Associated attestation - Cristobal Dong MD - 03/22/2021 1:32 PM HARMONIC ANALYST I have seen and examined the patient. I agree with the findings and plan of care as documented in the resident/fellow's note. I have placed an addendum with updated findings and plan. documented in this encounter Plan of Treatment Not on file documented as of this encounter Results * Pulmonary Function Test - (11/07/2021 2:43 PM CDT) FVC PRE 2.51 L [facility] FVC %PRE PRED 69 % [facility] FEV1 PRE 2.01 L [facility] FEV1 %PRE PRED 71 % [facility] FEV1/FVC PRE 80.1 % [facility] Anatomical Region Laterality Modality PFT 11/07/2021 2:25 PM CDT Narrative 11/09/2021 11:18 AM CDT [facility] Division of Pulmonary & Critical Care Medicine [address] [place] [address]; [place] [address] [facility]; [place], [place] [address]; [phone] Pulmonary Function Laboratory Pulmonary Stress Test Simple/Oxygen Assessment Patient: Aleah Gerber Date: No visit date found. : [...] Work [distance (m) x body wt (kg)]: 85896 kg.m (normal >60,000kg.m) Oxygen required to maintain [...] no significant change of FEV1. ?? Juan Luis Dior M.D. By signing this report, the attending pulmonary physician certifies that he/she has personally reviewed and interpreted the graphic and numerical data associated with this pulmonary function study and has reviewed and /or edited a preliminary draft report and agrees with the written final report. PFT performed at:->[facility] Adult PFT Lab- CAM-8D Procedure:->Spirometry Procedure:->Oxygen Assessment Titration Cristobal Dong MD PFT ORDERABLES Final Result * Respiratory pathogen panel Nasopharyngeal (03/21/2021 3:32 PM HARMONIC ANALYST) [facility] Influenza A RNA Not Detected Not Detected [facility] Influenza B RNA Not Detected Not Detected [facility] RSV RNA Not Detected Not Detected [facility] COVID-19 RNA Not Detected Not Detected [facility] Coronavirus 229E RNA Not Detected Not Detected [facility] Coronavirus HKU1 RNA Not Detected Not Detected [facility] Coronavirus NL63 RNA Not Detected Not Detected [facility] Coronavirus OC43 RNA Not Detected Not Detected [facility] Adenovirus DNA Not Detected Not Detected [facility] Metapneumovirus RNA Not Detected Not Detected [facility] Rhinovirus/Enterov irus RNA Not Detected Not Detected [facility] Parainfluenza 1 RNA Not Detected Not Detected [facility] Parainfluenza 2 RNA Not Detected Not Detected [facility] Parainfluenza 3 RNA Not Detected Not Detected [facility] Parainfluenza 4 RNA Not Detected Not Detected [facility] B. pertussis DNA Not Detected Not Detected [facility] B. parapertussis DNA Not Detected Not Detected [facility] C. pneumoniae DNA Not Detected Not Detected [facility] M. pneumoniae DNA Not Detected Not Detected [facility] First COVID-19 test? Unknown [facility] Employeed in healthcare? No [facility] status? No [facility] Group care resident? No [facility] Hospitalized? No [facility] Is patient in ICU? No [facility] Symptomatic as defined by CDC? No [facility] Nasopharyngeal 03/21/2021 3: 32 PM HARMONIC ANALYST 03/21/2021 6:51 PM HARMONIC ANALYST Narrative [facility] - 03/21/2021 7:53 PM HARMONIC ANALYST Reason for testing?->Symptomatic (not immunocompromised) Known exposure to confirmed or suspected COVID-19 case?->No Surveillance testing for transplant patient?->No Cristobal Dong MD LAB MICROBIOLOGY - GENERAL ORD ERABLES Final Result [facility] Department [place] [address] * XR Chest Pa Lateral 2 Views (03/21/2021 2:57 PM HARMONIC ANALYST) Anatomical Region Laterality Modality Body, Chest N/A Computed Radiogr aphy 03/21/2021 3:37 PM HARMONIC ANALYST Impressions 03/21/2021 4:29 PM HARMONIC ANALYST Comparison is made to prior chest radiograph dated 07/26/2020 3:38 PM. Cardiac silhouette and mid sternal contours are stable. Lungs are clear. No pleural effusion or pneumothorax. Dictated by: Shady Riggs M.D. The radiology attending physician has personally reviewed this study, and had reviewed and/or edited this written report and agrees with it. Electronically signed by: Kristen Gentile M.D. Narrative 03/21/2021 4:29 PM HARMONIC ANALYST EXAMINATION: 2 view chest radiograph Procedure Note Kristen Gentile MD - 03/21/2021 EXAMINATION: 2 view chest radiograph IMPRESSION: Comparison is made to prior chest radiograph dated 07/26/2020 3:38 PM. Cardiac silhouette and mid sternal contours are stable. Lungs are clear. No pleural effusion or pneumothorax. Dictated by: Shady Riggs M.D. The radiology attending physician has personally reviewed this study, and had reviewed and/or edited this written report and agrees with it. Electronically signed by: Kristen Gentile M.D. 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 ondansetron (ZOFRAN) 4 mg tablet Take 1 tablet (4 mg total) by mouth every 8 (eight) hours as needed for vomiting or nausea 02/22/2021 traMADoL (ULTRAM) 50 mg tablet Take 1 tablet (50 mg total) by mouth every 8 (eight) hours as needed for pain 01/11/2021 added in this encounter Care Teams Pole Framer Relationship Specialty Start Date End Date Ravi Smith MD PCP - General 11/04/17 09/27/21 Aft, Kianna Machado MD PhD [address] [place] [address] Surgeon Surgical Oncology 11/22/17 Santiago Gilbert MD [address] [place] [address] Reference Archivist Gastroenterology 11/22/17 Dmitry Sanderson MD [address] [place] [address] Referring Physician Colon and Rectal Surgery 12/03/1805/06 Abbi Ventura MD [address] [facility] [address] [place] [address] Medical Oncologist/Railroad Signal And Switch Operator Medical Oncology 12/03/18 Montse Thompson MD [address] [facility] [address] [place] [address] Consulting Physician Gynecologic Oncology 12/03/18 Lela Hardy MD PhD [address] [facility] [address] [place] [address] Radiation Oncologist Radiation Oncology 12/23/18 Aft, Kianna Machado MD PhD [address] [facility] [address] [place] [address] Surgeon Surgical Oncology 12/23/18 09/17/21 documented as of this encounter
--- OUTSIDE RECORDS SUMMARY | 2024-04-24 13:39 | XMS_ITS | Encounter Summary ---
Author Organization [facility] Healthcare Address [address] [place] [address] Care Team Providers Care Veterinary Microbiologist Name Role Phone Ravi Smith MD Primary Care Provider [phone] Aft, Kianna Machado MD PhD Unavailable [phone] Santiago Gilbert MD Unavailable [phone] Dmitry Sanderson MD Unavailable [phone] Abbi Ventura MD Unavailable Montse Thompson MD Unavailable [phone] Lela Hardy MD PhD Unavailable [phone] Aft, Kianna Machado MD PhD Unavailable [phone] Encounter Details Date Type Department Care Team (Late st Contact Info) Description 10/14/2020 12:40 PM CDT Lab [address] [address] Paresthesia Social History Tobacco Use Types Packs/Day Years [...] on file 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 INSPECTOR SALVAGE Gender Identity Not on file Sexual Orientation Not on file documented as of this encounter Plan of Treatment Not on file documented as of this encounter Procedures Procedure Name Priority Date/Time Associated Diagnosis Comments ZENA QUALITATIVE WITH REFLEX TO ZENA QUANTITATIVE Routine 10/14/2020 10:22 AM CDT Paresthesia ANTI-PHOSPHOLIPID SCREEN Routine 10/14/2020 10:22 AM CDT Paresthesia CRP (ACUTE PHASE) Routine 10/14/2020 10: 22 AM CDT Paresthesia PROTEIN ELECTROPHORESIS, WITH REFLEX, SERUM Routine 10/14/2020 10:22 AM CDT Paresthesia documented in this encounter Results * (ABNORMAL) CRP (acute phase) (10/14/2020 10:22 AM CDT) CRP 11.8(H) <=10.0 mg/L [facility] Blood specimen (specimen) 10/14/2020 10:22 AM CDT 10/14/2020 12:37 PM CDT us Lizbeth May MD LAB BLOOD ORDERABLES Final R esult [facility] Department [place] [address] * Protein Electrophoresis, With Reflex, Serum (10/14/2020 10:22 AM CDT) Protein, sr 7.0 6.2 - 8.2 g/dL [facility] Albumin 4.5 3.2 - 5.0 g/dL [facility] Alpha-1 globulin 0.3 0.2 - 0.4 g/dL [facility] Alpha-2 globulin 0.8 0.5 - 1.0 g/dL [facility] Beta-1 globulin 0.4 0.3 - 0.6 g/dL [facility] Beta-2 globulin 0.4 0.2 - 0.6 g/dL [facility] Gamma globulin 0.6 0.5 - 1.7 g/dL [facility] SPEP interp Please see comment [facility] Comment:No apparent monoclon al peak Blood specimen (specimen) 10/14/2020 10:22 AM CDT 10/14/2020 12:37 PM CDT us Lizbeth May MD LAB BLOOD ORDERABLES Final R esult [facility] Department [place] [address] * Anti-phospholipid screen (10/14/2020 10:22 AM CDT) Cardiolipin, IgG <1.6 <=19.9 GPL U/mL [facility] Comment: Interpretive Data Negative: <20 GPL U/mL Positive: > or = 20 GPL U/mL Anticardiolipin antibodies are associated with certain clinical events including unexplained arterial and venous thromboemboli, and unexplained morbidity. However, detection of low levels of anticardiolipin antibodies occurs in both healthy individuals and patients with co-morbidities not associated with the antiphospholipid antibody (APA) syndrome including inflammatory and infectious conditions. In order to improve specificity, the International Congress on Antiphospholipid Antibodies recommends ACL antibodies of IgG or IgM isotype present in medium or high titer (e.g. > 40 GPL, or >the 99th percentile), on two or more occasions, at least 12 weeks apart, to support a diagnosis of antiphospholipid syndrome. The cutoff for this assay was developed from data based on the 99th percentile. In addition, the International Congress on Antiphospholipid Antibodies does not recommend testing for IgA MARY. These results were obtained with the YourEncore 2200 System. Cardiolipin IgG values obtained with different manufacturers' assay methods may not be used interchangeably. Current interpretive data was last revised on 2016. Cardiolipin, IgM 1.1 <=19.9 MPL U/mL [facility] Comment: Interpretive Data Negative: <20 MPL U/mL Positive: > or = 20 MPL U/mL Anticardiolipin antibodies are associated with certain clinical events including unexplained arterial and venous thromboemboli, and unexplained morbidity. However, detection of low levels of anticardiolipin antibodies occurs in both healthy individuals and patients with co-morbidities not associated with the antiphospholipid antibody (APA) syndrome including inflammatory and infectious conditions. In order to improve specificity, the International Congress on Antiphospholipid Antibodies recommends ACL antibodies of IgG or IgM isotype present in medium or high titer (e.g. > 40 MPL, or >the 99th percentile), on two or more occasions, at least 12 weeks apart, to support a diagnosis of antiphospholipid syndrome. The cutoff for this assay was developed from data based on the 99th percentile. ?? In addition, the International Congress on Antiphospholipid Antibodies does not recommend testing for IgA MARY. The ACL IgM test can produce false positive results due to cross- reactivity with Rheumatoid factor, dsDNA or certain infectious disease antibodies. ??These results were obtained with the YourEncore 2200 System. Cardiolipin IgM values obtained with different manufacturers' assay methods may not be used interchangeably. Current interpretive data was last revised on 2016. Beta-2 glycoprotein I, IgG <1.4 <=19.9 units/mL [facility] Comment: Interpretive Data Negative: <20 U/mL Positive: > or = 20 U/mL ? Beta-2 glycoprotein 1 (Beta-2 GP1) antibodies are a more specific marker of thrombotic risk. It is expected that some samples will be ACL positive and Beta- 2 [id number]. In order to improve specificity, the International Congress on Antiphospholipid Antibodies recommends Beta-2 GP1 antibodies of IgG or IgM isotype ??(> the 99th percentile), obtained twice, at least 12 weeks apart, to support a diagnosis of antiphospholipid syndrome. The cutoff for this assay was developed from data based on the 99th percentile. These results were obtained with the Metriclylex 2200 System. Beta 2GP1 IgG values obtained with different manufacturers' assay methods may not be used interchangeably. Current interpretive data was last revised on 2016. Beta-2 glycoprotein I, IgM 1.0 <=19.9 units/mL [facility] Comment: Interpretive Data Negative: <20 U/mL Positive: > or = 20 U/mL ? Beta- 2 glycoprotein 1 (Beta-2 GP1) antibodies are a more specific marker of thrombotic risk. It is expected that some samples will be ACL positive and Beta- 2 GP1 negative. In order to improve specificity, the International Congress on Antiphospholipid Antibodies recommends Beta-2 GP1 antibodies of IgG or IgM isotype ??(> the 99th percentile), obtained twice, at least 12 weeks apart, to support a diagnosis of antiphospholipid syndrome. The cutoff for this assay was developed from data based on the 99th percentile. The Beta-2 GP1 IgM test can produce false positive results due to cross-reactivity with Rheumatoid factor. ??These results were obtained with the YourEncore 2200 System. Beta-2 GP1 IgM values obtained with different manufacturers' assay methods may not be used interchangeably. Current interpretive data was last revised on 2016. Blood specimen (specimen) 10/14/2020 10:22 AM CDT 10/14/2020 12:37 PM CDT Lizbeth May MD LAB BLOOD ORDERABLES Final R esult Performing Organization Address [facility] de Phone Number [facility] Department [place] [address] * ZENA qualitative with reflex to ZENA Quantitative (10/14/2020 10:22 AM CDT) ZENA Negative [facility] Comment: Interpretive Data Normal range for ZENA Qualitative Antibody = Negative. 1. ZENA is performed using indirect immunofluorescence against HEp-2 cells 2. ZENA titers are performed on all positive qualitative results. 3. A significantly positive ZENA result is defined as a positive nuclear fluorescence at a titer of 1:80 or greater. 4. 15% of normal people above age 65 have significantly positive ZENA results. ??5% or less of normal people age 65 or under have significantly positive ZENA results. Current interpretive data was last revised on 2020. Blood specimen (specimen) 10/14/2020 10:22 AM CDT 10/14/2020 12:37 PM CDT Lizbeth May MD LAB BLOOD ORDERABLES Final R esult Performing Organization Address [facility] Co de Phone Number [facility] Department [place] [address] documented in this encounter Visit Diagnoses Diagnosis Paresthesia Disturbance of skin sensation documented in this encounter Care Teams Veterinary Microbiologist Relationship Specialty Start Date End Date Ravi Smith MD PCP - General 11/04/17 09/27/21 AfKianna simpson MD PhD [address] [place] [address] Surgeon Surgical Oncology 11/22/17 Santiago Gilbert MD [address] [place] [address] Application Infrastructure Engineer Gastroenterology 11/22/17 Dmitry Sanderson MD [address] [place] [address] Referring Physician Colon and Rectal Surgery 12/03/1805/06 Abbi Ventura MD [address] [place] [address] [address] [place] [address] Medical Oncologist/Group Worker Medical Oncology 12/03/18 Montse Thompson MD [address] [facility] [address] [place] [address] Consulting Physician Gynecologic Oncology 12/03/18 Lela Hardy MD PhD [address] [place] [address] Radiation Oncologist Radiation Oncology 12/23/18 Kianna Bunch MD PhD [address] [facility] [address] [place] [address] Surgeon Surgical Oncology 12/23/18 09/17/21 documented as of this encounter
--- OUTSIDE RECORDS SUMMARY | 2024-04-24 13:39 | XMS_ITS | Encounter Summary ---
Author Organization [facility] Healthcare Address [address] [place] [address] Care Team Providers Care Contact Person Name Role Phone Ravi Smith MD Primary Care Provider [phone] Aft, Kianna Machado MD PhD Unavailable [phone] Santiago Gilbert MD Unavailable Dmitry Sanderson MD Unavailable [phone] Abbi Ventura MD Unavailable Montse Thompson MD Unavailable [phone] Lela Hardy MD PhD Unavailable [phone] Aft, Kianna Machado MD PhD Unavailable [phone] Encounter Details Date Type Department Care Team (Late st Contact Info) Description 03/21/2021 6:00 PM SUPERVISOR GRADING Lab [facility] of [address] [address] Asthma-COPD overlap syndrome (CMS/HCC) (HCC) Social History Tobacco Use Types [...] on file 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 SUPERVISOR GRADING Gender Identity Not on file Sexual Orientation Not on file documented as of this encounter Plan of Treatment Not on file documented as of this encounter Procedures Procedure Name Priority Date/Time Associated Diagnosis Comments RESPIRATORY PATHOGEN PANEL Routine 03/21/2021 3:32 PM SUPERVISOR GRADING Asthma-COPD overlap syndrome (CMS/HCC) (HCC) documented in this encounter Results * Respiratory pathogen panel Nasopharyngeal (03/21/2021 3:32 PM SUPERVISOR GRADING) Pathologist [facility] Influenza A RNA Not Detected Not Detected [facility] Influenza B RNA Not Detected Not Detected [facility] RSV RNA Not Detected Not Detected [facility] COVID-19 RNA Not Detected Not Detected [facility] Coronavirus 229E RNA Not Detected Not Detected [facility] Coronavirus HKU1 RNA Not Detected Not Detected [facility] Coronavirus NL63 RNA Not Detected Not Detected [facility] Coronavirus OC43 RNA Not Detected Not Detected [facility] Adenovirus DNA Not Detected Not Detected [facility] Metapneumovirus RNA Not Detected Not Detected [facility] Rhinovirus/Enterov irus RNA Not Detected Not Detected [facility] Parainfluenza 1 RNA Not Detected Not Detected [facility] Parainfluenza 2 RNA Not Detected Not Detected [facility] Parainfluenza 3 RNA Not Detected Not Detected [facility] Parainfluenza 4 RNA Not Detected Not Detected [facility] B. pertussis DNA Not Detected Not Detected [facility] B. parapertussis DNA Not Detected Not Detected [facility] C. pneumoniae DNA Not Detected Not Detected [facility] M. pneumoniae DNA Not Detected Not Detected [facility] First COVID-19 test? Unknown [facility] Employeed in healthcare? No [facility] status? No [facility] Group care resident? No [facility] Hospitalized? No [facility] Is patient in ICU? No [facility] Symptomatic as defined by CDC? No [facility] Nasopharyngeal 03/21/2021 3: 32 PM SUPERVISOR GRADING 03/21/2021 6:51 PM SUPERVISOR GRADING Narrative [facility] - 03/21/2021 7:53 PM SUPERVISOR GRADING Reason for testing?->Symptomatic (not immunocompromised) Known exposure to confirmed or suspected COVID-19 case?->No Surveillance testing for transplant patient?->No Cristobal Dong MD LAB MICROBIOLOGY - GENERAL ORD ERABLES Final Result [facility] Department [place] [address] documented in this encounter Visit Diagnoses Diagnosis Asthma-COPD overlap syndrome (HCC) documented in this encounter Care Teams Contact Person Relationship Specialty Start Date End Date Ravi Smith MD PCP - General 11/04/17 09/27/21 Aft, Kianna Machado MD PhD [address] [place] [address] Surgeon Surgical Oncology 11/22/17 Santiago Gilbert MD [address] [place] [address] Cruise Coordinator Gastroenterology 11/22/17 Dmitry Sanderson MD [address] [place] [address] Referring Physician Colon and Rectal Surgery 12/03/1805/06 Abbi Ventura MD [address] [facility] [address] [place] [address] Medical Oncologist/Associate Director Medical Oncology 12/03/18 Montse Thompson MD [address] [facility] [address] [place] [address] Consulting Physician Gynecologic Oncology 12/03/18 Lela Hardy MD PhD [address] [facility] [address] [place] [address] Radiation Oncologist Radiation Oncology 12/23/18 Aft, Kianna Machado MD PhD [address] [facility] [address] [place] [address] Surgeon Surgical Oncology 12/23/18 09/17/21 documented as of this encounter
--- OUTSIDE RECORDS SUMMARY | 2024-04-24 13:39 | XMS_ITS | Encounter Summary ---
Author Organization [facility] Healthcare Address [address] [place] [address] Care Team Providers Care Dural Mechanic Name Role Phone Ravi Smith MD Primary Care Provider [phone] Aft, Kianna Machado MD PhD Unavailable [phone] Santiago Gilbert MD Unavailable [phone] Dmitry Sanderson MD Unavailable [phone] Abbi Ventura MD Unavailable Montse Thompson MD Unavailable [phone] Lela Hardy MD PhD Unavailable [phone] Aft, Kianna Machado MD PhD Unavailable Reason for Referral * MRI/CAT/PET Scan (Routine) - Closed Specialty Diagnoses / Procedures Referred By [facility] t Referred To Contact Radiology Diagnoses Malignant neoplasm of upper-inner quadrant of left breast in female, estrogen receptor negative (HCC) Procedures CT Chest WO Contrast Abbi Ventura MD [address] [facility] [address] [place] [address] Phone: tel: fax: [facility] Referral ID Status Reason Start Date Expiration Date Visits Re quested Visits Authorized [id number] Closed 03/28/2021 04/27/2022 1 1 S REPRESENTATIVE ADVERTISING Reason for Visit * MRI/CAT/PET Scan (Routine) - Closed Specialty Diagnoses / Procedures Referred By Vijaya t Referred To Contact Radiology Diagnoses Malignant neoplasm of upper-inner quadrant of left breast in female, estrogen receptor negative (HCC) Procedures CT Chest WO Contrast Abbi Ventura MD [address] [facility] [address] [place] [address] Phone: tel: fax: [facility] Referral ID Status Reason Start Date Expiration Date Visits Re quested Visits Authorized [id number] Closed 03/28/2021 04/27/2022 1 1 Encounter Details Date Type Department Care Team (Latest Contact Info) Description 04/25/2021 3:21 PM SALES REPRESENTATIVE ADVERTISING - 04/25/2021 11:59 PM SALES REPRESENTATIVE ADVERTISING Hospital Encounter [facility] [address] [place] [address] Abbi Ventura MD [address] [facility] [address] [place] [address] Malignant neoplasm of upper-inner quadrant [...] file 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 SALES REPRESENTATIVE ADVERTISING Gender Identity Not on file Sexual Orientation Not on file documented as of this encounter Medications at Time of Discharge ALPRAZolam (XANAX) 0.25 mg tablet Take 1 tablet (0.25 mg total) by mouth 3 (three) times a day as needed for anxiety 11/07/[address] (CYMBALTA) 60 mg capsuleIndicatio ns:Neuropathic Pain Take 1 capsule (60 mg total) by mouth nightly 05/07/2020 ondansetron (ZOFRAN) 4 mg tablet Take 1 tablet (4 mg total) by mouth every 8 (eight) hours as needed for vomiting or nausea 02/22/2021 propranolol LA (INDERAL LA) 60 mg 24 hr capsuleIndicatio ns:Essential Tremor Take 1 capsule (60 mg total) by mouth 2 (two) times a day 10/26/2019 traMADoL (ULTRAM) 50 mg tablet Take 1 tablet (50 mg total) by mouth every 8 (eight) hours as needed for pain 01/11/2021 albuterol HFA (PROVENTIL HFA,VENTOLIN HFA,PROAIR HFA) 90 mcg/actuation inhaler Inhale 2 puffs every 6 (six) hours as needed for wheezing 1 each 5 03/22/2021 07/09/2022 atorvastatin (LIPITOR) 20 mg tabletIndication s:hyperlipidemia Take 20 mg by mouth nightly 0 02/21/2018 08/22/2021 Bydureon BCise 2 mg/0.85 mL auto-injector INJECT 2MG UNDER THE SKIN EVERY WEEK 11/20/2020 02/01/2022 fluticasone propion-salmeter oL (ADVAIR DISKUS) 500-50 mcg/dose diskus inhaler Inhale 1 puff 2 (two) times a day Rinse mouth with water after use. Do not swallow. 60 each 5 07/26/2020 06/05/2021 gabapentin (NEURONTIN) 400 mg capsule Take 1 capsule (400 mg total) by mouth 3 (three) times a day 90 capsule 04/05/2021 02/01/2022 hydroCHLOROthiaz frederick (HYDRODIURIL) 12.5 mg tabletIndication s:hypertension Take 12.5 mg by mouth every morning 0 02/24/2018 08/22/2021 LORazepam (ATIVAN) 0.5 mg tablet Take 1 [...] Priority Date/Time Associated Diagnosis Comments CT CHEST WO CONTRAST Schedule Routine, Read Routine (OP Routine) 04/25/2021 3:25 PM SALES REPRESENTATIVE ADVERTISING Malignant neoplasm of upper-inner quadrant of left breast in female, 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) (HCC) documented in this encounter Results * CT Chest WO Contrast (04/25/2021 3:25 PM SALES REPRESENTATIVE ADVERTISING) Anatomical Region Laterality Modality Body N/A Computed Tomogra phy 04/25/2021 3:45 PM SALES REPRESENTATIVE ADVERTISING Impressions 04/25/2021 3:45 PM SALES REPRESENTATIVE ADVERTISING 1. No metastatic disease identified in the chest. Electronically signed by: Nicholas Olmos M.D. Narrative 04/25/2021 3:45 PM SALES REPRESENTATIVE ADVERTISING EXAMINATION: ??Computed tomography of the chest without intravenous contrast HISTORY: Breast cancer restaging TECHNIQUE: ??Transaxial computed tomographic images of the chest were obtained without intravenous contrast according to the standard protocol. COMPARISON: 10/06/2020 FINDINGS: ?? There are new patchy right lower lobe groundglass opacities and tree-in-bud nodules that may be the sequela of aspiration. There is no pleural effusion pneumothorax or consolidation. No pleural or pulmonary metastatic disease is identified. No axillary supraclavicular mediastinal or hilar lymphadenopathy is identified. Normal heart size without pericardial effusion. Normal caliber thoracic aorta. In the upper abdomen the visualized solid organs are normal. No osseous metastatic disease is identified. Procedure Note Nicholas Olmos MD - 04/25/2021 EXAMINATION: Computed tomography of the chest without intravenous contrast HISTORY: Breast cancer restaging TECHNIQUE: Transaxial computed tomographic images of the chest were obtained without intravenous contrast according to the standard protocol. COMPARISON: 10/06/2020 FINDINGS: There are new patchy right lower lobe groundglass opacities and tree-in-bud nodules that may be the sequela of aspiration. There is no pleural effusion pneumothorax or consolidation. No pleural or pulmonary metastatic disease is identified. No axillary supraclavicular mediastinal or hilar lymphadenopathy is identified. Normal heart size without pericardial effusion. Normal caliber thoracic aorta. In the upper abdomen the visualized solid organs are normal. No osseous metastatic disease is identified. IMPRESSION: 1. No metastatic disease identified in the chest. Electronically signed by: Nicholas Olmos M.D. Abbi Ventura MD IM CT PROCEDURES Final Result documented in this encounter Visit Diagnoses Diagnosis Malignant neoplasm of upper-inner quadrant of left breast in female, estrogen receptor negative (HCC) documented in this encounter Care Teams Dural Mechanic Relationship Specialty Start Date End Date Ravi Smith MD PCP - General 11/04/17 09/27/21 Aft, Kianna Machado MD PhD [address] [place] [address] Surgeon Surgical Oncology 11/22/17 Santiago Gilbert MD [address] [place] [address] Dry Kiln Worker Gastroenterology 11/22/17 Dmitry Sanderson MD [address] [place] [address] Referring Physician Colon and Rectal Surgery 12/03/1805/06 Abbi Ventura MD [address] [place] [address] Medical Oncologist/Tube Winder Hand Medical Oncology 12/03/18 Montse Thompson MD [address] [place], [place] [id number] Consulting Physician Gynecologic Oncology 12/03/18 Lela Hardy MD PhD [address] [place], [place] [address] Radiation Oncologist Radiation Oncology 12/23/18 Aft, Kianna Machado MD PhD [address] [facility] [address] [place], [place] [id number] Surgeon Surgical Oncology 12/23/18 09/17/21 documented as of this encounter
--- OUTSIDE RECORDS SUMMARY | 2024-04-24 13:39 | XMS_ITS | Encounter Summary ---
Author Organization [facility] Address [address] [place] [address] Phone Care Team Providers Care Agronomy Instructor Name Role Phone Ravi Smith MD Primary Care Provider [phone] Aft, Kianna Machado MD PhD Unavailable [phone] Santiago Gilbert MD Unavailable [phone] Dmitry Sanderson MD Unavailable [phone] Abbi Ventura MD Unavailable Montse Thompson MD Unavailable [phone] Lela Hardy MD PhD Unavailable [phone] Aft, Kianna Machado MD PhD Unavailable [phone] Reason for Visit * Consultation (Routine) - Closed Specialty Diagnoses / Procedures Referred By Contac t Referred To Contact Endocrinology Diagnoses Type 2 diabetes mellitus with other kidney complication, unspecified whether halfway insulin use (HCC) Lizbeth May MD [address] [facility] [address] [place] [address] Phone: tel: fax: [facility] (All Locations) Referral ID Status Reason Start Date Expiration Date V isits Requested Visits Authorized [id number] Closed Specialty Services Required 10/14/2020 11/13/[phone] Encounter Details Date Type Department Care Team (Latest Contact Info) Description 12/09/2020 2:00 PM CDT Office Visit [facility] Endocrinology Metabolism and Lipid [address] [facility] 13[address] [place] [address] [place] [id number] Sylvia Ybarra MD [address] [place] [address] Type 2 diabetes mellitus with other kidney complication, unspecified whether terminal gauger supervisor insulin use (HCC) (Primary Dx) Social History Tobacco Use [...] on file 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 Gender Identity Not on file Sexual Orientation Not on file documented as of this encounter Last Filed Vital Signs Vital Sign Reading Time Taken Comments Blood Pressure 115/76 12/09/2020 1:49 PM CDT Pulse 75 12/09/2020 1:49 PM CDT Temperature 35.8 ??C (96.4 ??F) 12/09/2020 1:49 PM CD T Respiratory Rate - - Oxygen Saturation - - Inhaled Oxygen Concentration - - Weight 113.4 kg (250 lb) 12/09/2020 1:49 PM CDT Height 175.3 cm (5' 9 ) 12/09/2020 1:49 PM CDT Body Mass Index 36.92 12/09/2020 1:49 PM CDT documented in this encounter Patient Instructions * Patient Instructions* Sylvia Ybarra MD - 12/09/2020 2:00 PM CDT Eating to lower triglycerides, blood sugar and weight Every day foods 1 to 2 times per week Once a month Breakfast Cereals: All-Bran All-Bran Fruit ??? n Oats Fiber One Oatmeal (not instant) Oat bran Fruits: (Limit to 1-2 servings per day) Apples Apricots (fresh & dried) Blackberries Blueberries Cherries Cranberries Peaches Pears Plums Prunes (Grapefruit) Raspberries Strawberries [place] Tomato juice Beans and legumes (made from dried beans, not canned): Black-eyed peas Butter beans Chick peas Lentils Green beans Fulton beans Kidney beans Toad Hop beans Cherry beans Snow peas Non-starchy vegetables: Asparagus, avocado, broccoli, cabbage, cauliflower, celery, cucumber, greens, lettuce, mushrooms, peppers, tomatoes, okra, onions, spinach, summer squash, eggplant, [place]inton sprouts, zucchini Grains: Barley Bulgur Ridge [place] Wild rice Nuts and oils : Almonds Pistachios Crook seeds Hazelnuts Pecans Walnuts Oils: soybean Nuts--1/4 cup Dairy, fish, meat, soy, and eggs: Milk, skim Low fat cheese Yogurt, low fat or nonfat, Light Lean red meat Fish Skinless chicken & turkey Shellfish Soy products Egg whites (up to 3 daily) Egg yolks (up to 3 per week) Breakfast Cereals: Bran Buds Bran Chex Just Right Mini-Wheats Special K Nauruan muesli Fruits: Banana (under-ripe) Dates Figs Grapes Kiwi Benito Oranges Raisins Cantaloupe Fruit Juices: (avoid if blood sugar is high) Cranberry juice Chase juice Beans and legumes: [place]-type baked beans Canned cherry, kidney, or navy beans Green peas Vegetables: Beets Carrots Sweet potato Yam Sawyer on the cob Breads: Tiffani (pocket) bread Oat bran bread Pumpernickel bread [place] bread Wheat bread, high fiber Grains: Cornmeal Rice, brown Rice, white Couscous Pasta: Macaroni Pizza, cheese Ravioli, meat filled Spaghetti, white Nuts: Cashews Macadamia Snacks: Chocolate Ice cream, lowfat Muffin Popcorn All fast food restaurants Breakfast Cereals: Cheerios Sawyer Chex Sawyer Flakes Cream of Wheat Grape Nuts Grape Nut Flakes Grits Nutri-Grain Puffed Rice Puffed Wheat Rice Chex Rice Krispies Shredded Wheat Team Total Fruits: Pineapple Watermelon Banana (over-ripe) Beverages: Sodas, sweet tea, pineapple juice Vegetables: Potato, baked, boiled, fried, mashed Icelandic fries Canned or frozen corn Parsnips Winter squash Breads: Most breads (white and whole grain) Bagels Bread sticks Bread stuffing Bishop roll Dinner rolls Grains: Rice, instant Tapioca, with milk Candy and most cookies Snacks: Donuts Sawyer chips Jelly beans Pretzels Potato chips Pastries Restaurant and ethnic foods Most Upper Sorbian food (sugar in stir dickens or wok sauces) Teriyaki-style meats and vegetables One beer or one glass of wine documented in this encounter Progress Notes * Sylvia Ybarra MD - 12/09/2020 2:00 PM CDT Endocrinology Outpatient Clinic Note Patient: Aleah Gerber, 65 y.o. female (: 1955 ) PCP: Ravi Smith MD (Referring: Lizbeth May MD) CC: FOLLOW UP FOR TYPE 2 DIABETES MELLITUS HPI & Subjective Ms Gerber is a 65 year old female who presents to the Endocrinology clinic for optimization of diabetes management. Patient seen in Rheumatology clinic with neuropathy, recommended endocrinology evaluation. Patient has Type 2 DM diagnosed in 2018, HbA1C: 6.7, initally managed with metformin, then later Trulicity and Janumet with good tolerance. Patient stopped Trulicity and Janumet in May 2020 because her insurance would not cover the medication.She was started on Exenatide about 1 month ago. Patient continues to have good glycemic control as HbA1c remains at goal. 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 Patient reports developing a myriad of symptoms including diffuse body pains, numbness and esthesias about a week after receiving her COVID-19 Candy vaccination around July 13. While she used to have numbness and paresthesias in the hands and feet after chemotherapy sessions, she reports she also had numbness in her entire left arm which was associated with pain, halos/rings affecting the right eye, right ring finger weakness as well as sciatica-like symptoms. 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 A recent evaluation with an plant health care technician was done. Impression was ?Ocular migraine Today she reports her symptoms are much improved though she still experiences left arm paresthesiasall day but it is no longer associated with pain. She reports compliance with her medication but states she prefers her old regimen. Home glucose measurement: Does not keep a log. Infrequent checks usually around 150s. Home medications: Patient currently on Bydureon weekly was started about 1 months ago. She currently reports occasional bleeding and leaking of medication from injection site. Diet: Mostly meat and potatoes, does not drink juices and soda ?? Weight control: BMI today 36. No definitive plan for weight loss ?? Micro-/macrovascular complications - CVA/KY/CAD/PAD: None - Gastropathy: None - Kidneys: CKD 3, not on ACEi - Last foot exam: None. - Last eye exam: No hx of retinopathy, last exam at an external clinic, reportedly normal. Ref. Range 02/13/2019 20:42 04/01/2019 10:18 06/17/2019 14:22 12/23/2019 14:47 12/29/2019 14:27 01/06/2020 11:03 04/26/2020 12:44 09/29/2020 12:05 Creatinine Latest Ref Range: 0.60 - 1.10 mg/dL 1.17 (H) 1.09 1.15 (H) 1.46 (H) 1.52 (H) 1.16 (H) 1.37 (H) 1.45 (H) Ref. Range 12/29/2019 14:27 01/06/2020 11:03 eGFR If NonAfricn Am Latest Ref Range: > OR = 60 mL/min/1.73m2 36 (L) 50 (L) Ref. Range 10/14/2020 10:22 Creatinine Concentration Latest Units: mg/dL 121.8 Microalbumin, ur Latest Ref Range: 0.0 - 22.9 mg/L 23.5 (H) PMH & PSH She has a past medical history of Anemia, Anxiety, Asthma, At risk for sleep apnea, BRCA2 positive,Breast cancer ([facility]) ([facility]) (2017), Breast cancer ([facility]) ([facility]) (2017), Colon cancer ([facility]) ([facility]), Colon cancer (CMS/HCC) ([facility]) (2017), Colon polyps, COPD (chronic obstructive pulmonary disease) ([facility]) ([facility]), Depression, DVT (deep vein thrombosis) in (05/2017), DVT (deep venous thrombosis) ([facility]) ([facility]) (05/2018), Former smoker, History of chemotherapy, History of ileus (12/2017), History of radiation therapy, Hypercholesteremia, Hypertension, Leg swelling, Lower extremityedema, Memory loss, Mucositis, Obesity, VIOLETTE (obstructive sleep apnea) (11/12/2019), Personal history of other medical treatment, Personal history of other medical treatment, SOB (shortness of breath), SOB (shortness of breath) (2018), TIA (transient ischemic attack) (2007), Type 2 diabetes mellitus (), and Vascular disease. She has a past surgical history that includes Colonoscopy (2017); Incontinence surgery (2007); Tubal ligation (1991); Bladder suspension (2010); Hemicolectomy (Left, 12/27/2017); Inguinal Hernia Repair (Right, 1969); Breast biopsy (Left, 11/12/2017); Breast biopsy (Right, 2008); Breast lumpectomy (2017); Mastectomy, partial (Left, 01/14/2018); Portacath placement (01/2018); Portacath placement (Right, 2017); Hysterectomy W/ Bilateral Salpingoophorectomy (Bilateral, 02/13/2019); Vaginal delivery;and Oophorectomy. Social & Family History She reports that she quit smoking about 6 years ago. Her smoking use included cigarettes. She started smoking about 48 years ago. She smoked 1.00 pack per day. She has never used smokeless tobacco. She reports previous alcohol use. She reports that she does not use drugs. Her family history includes Breast cancer in [...] her mother; pancreatic cancer in her sister. Review of Systems Twelve point ROS reviewed and negative except as noted in HPI. All other systems negative. Vitals & Physical Exam Blood pressure 115/76, pulse 75, temperature (!) 35.8 ??C (96.4 ??F), temperature source Temporal, height 175.3 cm (5' 9 ), weight 113.4 kg (250 lb), not currently . Body mass index is 36.92 kg/m??. Physical Exam Gen : no acute distress, alert, appropriate, cooperative, appears stated age, well-developed, well-nourished HENT : normocephalic, atraumatic, moist mucus membranes Eyes : conjunctiva clear, anicteric, no proptosis/exophthalmos/lid lag, PERRL Pulm : clear to auscultation in anterior walsh, non-labored, on room air CV : regular rate & rhythm, no murmurs/rubs/gallop Abd : Obese, midline healed scar, soft, non-tender, normoactive bowel sounds, no striae. Extr : atraumatic, no cyanosis/clubbing/edema Skin : turgor normal, no rashes/wounds/lesions Neuro : alert, speech fluent, comprehension intact, moving all extremities Psych : cooperative, appropriate affect & mood, good insight & judgment Foot : no wound/ulcers/maceration. No onychomycosis Data Medications, labs, imaging, and diagnostics independently reviewed in [facility] and commented on below. No results found for: TSH, T3FREE, FREET4, TSI, THYROGLOBULI, THGAB No results found for: CHOL, TRIG, HDL, LDLCALC, LDLDIRECT No results found for: CORTISOL, PTH, 25HYDROVITD, CPEPTIDE, YPE80GQ, IA2AB Lab Results Component Value Date HGBA1C 6.9 12/09/2020 [id number] 6.5 (H) 02/05/2019 Assessment & Plan Type 2 Diabetes Mellitus, Controlled: Patient with well controlled T2DM, HbA1c 6.9, currently on rybelsus but complains of leakage and bleeding from injection site. She also would prefer to return toher old regimen. Will benefit from CDE visit for evaluation of injection technique and to check other covered GLP-1 agonist. Continue care with PCP, return as needed. Paraesthesia of left upper extremity: Symptoms started after COVID vaccination, now much improved. Symptoms mostly left sided. Unlikely related to Diabetes as glycemic control is at goal of <7. Possible differential include Atypical migraine. Patient can follow up with Neurologist, may benefit from MRI angio brain should symptoms worsen. Recommend avoiding possible triggers. Renal Insufficiency: Last GFR: 50, Creatinine 1.45. Will benefit from ACEi for renoprotective effect. Morbid obesity: BMI today is 36, comobidities - Type 2 DM, hypertension. Patient with benefit from lifestyle modification and weight loss. Can follow with director of blood Orders Placed This Encounter ??? POCT glucose ??? POCT hemoglobin A1c ??? Bydureon BCise 2 mg/0.85 mL auto-injector Patient seen and staffed with Dr Liu -- Sylvia Ybarra MD Clinical Fellow Endocrinology, Metabolism, & Lipid Research Cosigned by Antony Liu MD at 12/12/2020 9:22 AM CDT Associated attestation - Antony Liu MD - 12/12/2020 9:22 AM CDT I have seen and examined the patient. I agree with the findings and plan of care as documented in the resident/fellow's note. documented in this encounter Plan of Treatment Not on file documented as of this encounter Procedures Procedure Name Priority Date/Time Associated Diagnosis Comments POCT GLUCOSE 14469 Routine 12/09/2020 1: 50 PM CDT Type 2 diabetes mellitus with other kidney complication, unspecified whether terminal gauger supervisor insulin use (HCC) POCT HEMOGLOBIN A1C Routine 12/09/2020 1 :50 PM CDT Type 2 diabetes mellitus with other kidney complication, unspecified whether halfway insulin use (HCC) documented in this encounter Results * POCT hemoglobin A1c (12/09/2020 1:50 PM CDT) Hemoglobin A1C, POC 6.9 Blood specimen (specimen) 12/09/2020 1:50 PM CDT Sylvia Ybarra MD POINT OF CARE TEST ORDER YFN Final Result * POCT glucose (12/09/2020 1:50 PM CDT) Glucose Blood, POC 147 mg/dL Blood specimen (specimen) 12/09/2020 1:50 PM CDT Sylvia Ybarra MD POINT OF CARE TEST ORDER YFN Final Result documented in this encounter Visit Diagnoses Diagnosis Type 2 diabetes mellitus with other kidney complication, unspecified whether terminal gauger supervisor insulin use (HCC)- Primary documented in this encounter Historical Medications * This list may reflect changes made after this encounter. Bydureon BCise 2 mg/0.85 mL auto-injector INJECT 2MG UNDER THE SKIN EVERY WEEK 11/20/2020 02/01/2022 added in this encounter Orders Outpatient Referral Count Last Ordered Date Fir st Ordered Date AMB REFERRAL TO ENDOCRINOLOGY 1 12/09/2020 documented in this encounter Care Teams Agronomy Instructor Relationship Specialty Start Date End Date Ravi Smith MD PCP - General 11/04/17 09/27/21 AftKianna MD PhD [address] [place] [address] Surgeon Surgical Oncology 11/22/17 Santiago Gilbert MD [address] [place] [address] Community Development Coordinator Gastroenterology 11/22/17 Dmitry Sanderson MD [address] [place] [address] Referring Physician Colon and Rectal Surgery 12/03/1805/06 bAbi Venutra MD [address] [facility] [address] [place] [address] Medical Oncologist/Lining Stamper Medical Oncology 12/03/18 Montse Thompson MD [address] [place], [place] [id number] Consulting Physician Gynecologic Oncology 12/03/18 Lela Hardy MD PhD [address] [facility] [address] [place] [address] Radiation Oncologist Radiation Oncology 12/23/18 Kianna Bunch MD PhD [address] [place] [address] Surgeon Surgical Oncology 12/23/18 09/17/21 documented as of this encounter
--- OUTSIDE RECORDS SUMMARY | 2024-04-24 13:39 | XMS_ITS | Encounter Summary ---
Author Organization [facility] Address [address] [place] [address] Phone Care Team Providers Care Plaster Lather Name Role Phone Ravi Smith MD Primary Care Provider [phone] Aft, Kianna Machado MD PhD Unavailable [phone] Santiago Gilbert MD Unavailable [phone] Dmitry Sanderson MD Unavailable [phone] Abbi Ventura MD Unavailable Montse Thompson MD Unavailable [phone] Lela Hardy MD PhD Unavailable Aft, Kianna Machado MD PhD Unavailable [phone] Reason for Visit * Diagnostic Imaging (Routine) - Closed Specialty Diagnoses / Procedures Referred By Contac t Referred To Contact Diagnoses Leg weakness, bilateral Procedures US Arterial Doppler Lower Extremity Exercise Lizbeth May MD [address] [facility] [address] [place] [address] Phone: tel: fax: [facility] (All Locations) Referral ID Status Reason Start Date Expiration Date Visits Re quested Visits Authorized [id number] Closed 10/14/2020 11/13/2021 1 1 Encounter Details Date Type Department Care Team (Latest Contact Info) Description 10/25/2020 8:00 AM CDT Ancillary Procedure [facility] at [facility] [address] 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 Gender Identity Not on file Sexual Orientation Not on file documented as of this encounter Plan of Treatment Not on file documented as of this encounter Procedures Procedure Name Priority Date/Time Associated Diagnosis Comments US ARTERIAL DOPPLER LOWER EXTREMITY BILATERAL Schedule Routine, Read Routine (OP Routine) 10/25/2020 10:08 AM CDT Leg weakness, bilateral documented in this encounter Results * US Arterial Doppler Lower Extremity Exercise (10/25/2020 10:08 AM CDT) Anatomical Region Laterality Modality Vascular N/A Ultrasound 10/25/2020 8:27 AM CDT Narrative 10/25/2020 4:35 PM CDT [facility] - Department of Vascular Surgery, Vascular Laboratory [address] [place] [address] Lower Extremity Arterial Doppler Report Patient Name: ALEAH GERBER A : 1955 Study Date: 10/25/2020 8:27:00 AM Gender: F Tech: Uzma Preston Marv Location: [facility] Ref.Provider: LIZBETH MAY Quality: Adequate Order Provider: LIZBETH MAY Procedures: Arterial Report: Bilateral lower extremity arterial Doppler exam at rest and with treadmill exercise. Indications: Leg weakness, bilateral Intermittent Claudication. Measurements: Right - ?Left - ? Measurement ?Value ?Units ?Measurement ?Value ?Units ? Rt Brachial Pressure ? 169 ?mmHg ? Lt Brachial Pressure ? 171 ?mmHg ? Rt SENIOR DATA MODELER Pressure ?193 ?mmHg ? Lt SENIOR DATA MODELER Pressure ?184 ?mmHg ? Rt DPA Pressure ?189 ?mmHg ? Lt DPA Pressure ?173 ?mmHg ? Rt 1st Digit Pressure ?123 ?mmHg ? Lt 1st Digit Pressure ?130 ?mmHg ? Rt PT NEIDA Resting ?1.13 ?Lt PT NEIDA Resting ?1.08 ? Rt AT NEIDA Resting ?1.11 ?Lt AT NEIDA Resting ?1.01 ? Rt Digit/Arm Index ? 0.72 ?Lt Digit/Arm Index ? 0.76 ? Measurement ?Value ?Units ?Measurement ?Value ?Units ? Right - ?Left - ? - Findings: Performing Contact Person: Uzma Preston RVT. Bilateral All Levels : The bilateral common femoral, popliteal, posterior tibial and anterior tibial artery waveforms are multiphasic. Post Exercise Common Femoral Waveforms: The post exercise right common femoral waveform is monophasic. The post exercise left common femoral waveform is monophasic. Exercise Testing: Exercise testing is discontinued after 2 minutes due to patients shortness of breath. Conclusions: 1. The above listed Ankle/Brachial Indices at rest are within normal limits bilaterally (for reference, normal resting NEIDA is 0.90 - >1.00; NEIDA >1.00 due to incompressible arteries is not diagnostic). 2. Right Digit/Arm Index is within normal limits (for reference, normal BRADY is >0.6). 3. Exercise testing is discontinued after 2 minutes due to patients shortness of breath. - History: Dm, TIA, SOB, Obesity, Hx of DVT, COPD, Cancer. Previous Studies: No previous studies for comparison. Disclaimer: The signing physician has reviewed all images pertaining to this test. These images and this report will be retained in the patient chart by the Vascular Laboratory for the legally required time period. This chart constitutes the legal record of any testing performed. Electronically Signed By: Kavon Lawson MD [facility] [phone] 2020-10-25 16:35:51 CDT CC: CC: Procedure Note Kavon Lawson MD - 10/25/2020 [facility] - Department of Vascular Surgery,Vascular Laboratory [address] [place] [address] Lower Extremity Arterial Doppler Report Patient Name: ALEAH GERBER APatient ID: [id number] : [id number] Date: 10/25/2020 8:27:00 AM Gender: FAccession #: [id number] Tech: Uzma Preston RVTLocation: [facility] Ref.Provider: MAY, DEBORAHQuality: Adequate Order Provider: LIZBETH MAY Procedures: Arterial Report: Bilateral lower extremity arterial Doppler exam at rest and with treadmillexercise. Indications: Leg weakness, bilateral Intermittent Claudication. Measurements: Right - Left - Measurement Value Units Measurement ValueUnits Rt Brachial Pressure 169 mmHg Lt Brachial Pressure 171mmHg Rt SENIOR DATA MODELER Pressure 193 mmHg Lt SENIOR DATA MODELER Pressure 184mmHg Rt DPA Pressure 189 mmHg Lt DPA Pressure 173mmHg Rt 1st Digit Pressure 123 mmHg Lt 1st Digit Pressure 130mmHg Rt PT NEIDA Resting 1.13 Lt PT NEIDA Resting 1.08 Rt AT NEIDA Resting 1.11 Lt AT NEIDA Resting 1.01 Rt Digit/Arm Index 0.72 Lt Digit/Arm Index 0.76 Measurement Value Units Measurement ValueUnits Right - Left - - Findings: Performing Contact Person: Uzma Preston RVT. Bilateral All Levels : The bilateral common femoral, popliteal, posterior tibial and anteriortibial artery waveforms are multiphasic. Post Exercise Common Femoral Waveforms: The post exercise right common femoral waveform is monophasic. The postexercise left common femoral waveform is monophasic. Exercise Testing: Exercise testing is discontinued after 2 minutes due to patients shortnessof breath. Conclusions: 1. The above listed Ankle/Brachial Indices at rest are within normallimits bilaterally (for reference, normal resting NEIDA is 0.90 - >1.00; NEIDA >1.00 due toincompressible arteries is not diagnostic). 2. Right Digit/Arm Index is within normal limits (for reference, normalDAI is >0.6). 3. Exercise testing is discontinued after 2 minutes due to patientsshortness of breath. - History: Dm, TIA, SOB, Obesity, Hx of DVT, COPD, Cancer. Previous Studies: No previous studies for comparison. Disclaimer: The signing physician has reviewed all images pertaining to this test.These images and this report will be retained in the patient chart by the VascularLaboratory for the legally required time period. This chart constitutes the legal record ofany testing performed. Electronically Signed By: Kavon Lawson MD [facility] [phone] 2020-10-25 16:35:51 CDT CC: CC: us Lizbeth May MD IMG US PROCEDURES Final Resu lt documented in this encounter Visit Diagnoses Diagnosis Leg weakness, bilateral Muscle weakness (generalized) documented in this encounter Care Teams Plaster Lather Relationship Specialty Start Date End Date Ravi Smith MD PCP - General 11/04/17 09/27/21 Kianna Bunch MD PhD [address] [place] [address] Surgeon Surgical Oncology 11/22/17 Santiago Gilbert MD [address] [place] [address] Food Runner Gastroenterology 11/22/17 Dmitry Sanderson MD [address] [place] [address] Referring Physician Colon and Rectal Surgery 12/03/1805/06 Abbi Ventura [facility] [place] [address] Medical Oncologist/Qm Nurse Medical Oncology 12/03/18 Montse Thompson MD [address] [place] [address] Consulting Physician Gynecologic Oncology 12/03/18 Lela Hardy MD PhD [address] [place] [address] Radiation Oncologist Radiation Oncology 12/23/18 Kianna Bunch MD PhD [address] [place] [address] Surgeon Surgical Oncology 12/23/18 09/17/21 documented as of this encounter
--- OUTSIDE RECORDS SUMMARY | 2024-04-24 13:39 | XMS_ITS | Encounter Summary ---
Author Organization [facility] Address [address] [place] [address] Phone Care Team Providers Care Instrument Repairer Helper Name Role Phone Ravi Smith MD Primary Care Provider [phone] Aft, Kianna Machado MD PhD Unavailable [phone] Santiago Gilbert MD Unavailable [phone] Dmitry Sanderson MD Unavailable [phone] Abbi Ventura MD Unavailable Montse Thompson MD Unavailable [phone] Lela Hardy MD PhD Unavailable [phone] Aft, Kianna Machado MD PhD Unavailable [phone] Encounter Details Date Type Department Care Team (Late st Contact Info) Description 03/22/2021 Telephone [facility] [address] [facility] 8th [place] [address] [place] [id number] Leroy Cuellar RMA Social History Tobacco Use Types Packs/Day [...] file 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 LEAD SOFTWARE DEVELOPMENT ENGINEER Gender Identity Not on file Sexual Orientation Not on file documented as of this encounter Miscellaneous Notes * Telephone Encounter - Leroy Cuellar RMA - 03/22/2021 9:01 AM CST ----- Message from Adelina Morton RN sent at 03/22/2021 7:34 AM LEAD SOFTWARE DEVELOPMENT ENGINEER ----- Regarding: RE: follow up 11/07/21 at 3:00pm with Dr. Dong. Thanks, Jovita ----- Message ----- From: Leroy CuellarBELLALouise Sent: 03/21/2021 2:47 PM LEAD SOFTWARE DEVELOPMENT ENGINEER To: Adelina Morton RN Subject: follow up Jovita, September I have a [address] Dong? Thanks, Julien'louise SOFTWARE DEVELOPMENT ENGINEER documented in this encounter Plan of Treatment Not on file documented as of this encounter Visit Diagnoses Not on filedocumented in this encounter Care Teams Instrument Repairer Helper Relationship Specialty Start Date End Date Ravi Smith MD PCP - General 11/04/17 09/27/21 Aft, Kianna Machado MD PhD [address] [place] [address] Surgeon Surgical Oncology 11/22/17 Santiago Gilbert MD [address] [place] [address] Replenishment Merchandising Associate Gastroenterology 11/22/17 Dmitry Sanderson MD [address] [place], [place] [address] Referring Physician Colon and Rectal Surgery 12/03/1805/06 Abbi Ventura MD [address] [facility] [address] [place], [place] [id number] Medical Oncologist/Legal Compliance Officer Medical Oncology 12/03/18 Montse Thompson MD [address] [facility] [address] [place], [place] [id number] Consulting Physician Gynecologic Oncology 12/03/18 Lela Hardy MD PhD [address] [facility] [address] [place] [address] Radiation Oncologist Radiation Oncology 12/23/18 Aft, Kianna Machado MD PhD [address] [facility] [address] [place], [place] [address] Surgeon Surgical Oncology 12/23/18 09/17/21 documented as of this encounter
--- OUTSIDE RECORDS SUMMARY | 2024-04-24 13:39 | XMS_ITS | Encounter Summary ---
Author Organization [facility] Address [address] [place] [address] Phone Care Team Providers Care Window Shade Ring Sewer Name Role Phone Ravi Smith MD Primary Care Provider [phone] Aft, Kianna Machado MD PhD Unavailable [phone] Santiago Gilbert MD Unavailable [phone] Dmitry Sanderson MD Unavailable [phone] Abbi Ventura MD Unavailable Montse Thompson MD Unavailable [phone] Lela Hardy MD PhD Unavailable Aft, Kianna Machado MD PhD Unavailable [phone] Reason for Referral * (Routine) - Closed Specialty Diagnoses / Procedures Referred By Contac t Referred To Contact Diagnoses Moderate persistent asthma, unspecified whether complicated Procedures Pulmonary Function Test -[facility] PFT Lab- CAM-8D; Spirometry, Oxygen Assessment Titration Cristobal Dong MD [address] [place] [address] Phone: tel: fax: Referral ID Status Reason Start Date Expiration Date Visits Re quested Visits Authorized [id number] Closed 07/26/2020 08/25/2021 1 1 ROOM TAPPER Reason for Visit * (Routine) - Closed Specialty Diagnoses / Procedures Referred By Contac t Referred To Contact Diagnoses Moderate persistent asthma, unspecified whether complicated Procedures Pulmonary Function Test -[facility]FT [facility]- CAM-8D; Spirometry, Oxygen Assessment Titration Cristobal Dong MD [address] [place] [address] Phone: tel: fax: Referral ID Status Reason Start Date Expiration Date Visits Re quested Visits Authorized [id number] Closed 07/26/2020 08/25/2021 1 1 Encounter Details Date Type Department Care Team (Latest Contact Info) Description 03/21/2021 1:25 PM POT ROOM TAPPER - 03/21/2021 2:53 PM POT ROOM TAPPER Hospital Encounter [facility] Pulmonary [address] [facility] [address] [place] [address] Moderate persistent asthma, unspecified whether complicated Discharge Disposition: Discharge to home or self [...] on file 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 POT ROOM TAPPER Gender Identity Not on file Sexual Orientation [...] (eight) hours as needed for pain 01/11/2021 atorvastatin (LIPITOR) 20 mg tabletIndication s:hyperlipidemia Take [...] 3 (three) times a day 90 capsule 3 12/23/2020 04/05/2021 hydroCHLOROthiaz frederick (HYDRODIURIL) 12.5 mg tabletIndication s:hypertension Take 12.5 mg by mouth every morning 0 02/24/2018 08/22/2021 Rybelsus 14 mg tablet 10/24/2020 05/09/2022 documented as of this encounter Discharge Disposition Disposition Code Departure Means Destination Discharge to home or self care documented in this encounter Plan of Treatment Not on file documented as of this encounter Procedures Procedure Name Priority Date/Time Associated Diagnosis Comments PULMONARY FUNCTION TEST (PFT) Routine 03/21/2021 2:00 PM POT ROOM TAPPER Moderate persistent asthma, unspecified whether complicated documented in this encounter Results * Pulmonary Function Test - (03/21/2021 2:00 PM POT ROOM TAPPER) FVC PRE 2.38 L [facility] FVC %PRE PRED 65 % [facility] FEV1 PRE 1.86 L [facility] FEV1 %PRE PRED 65 % [facility] FEV1/FVC PRE 77.8 % [facility] Anatomical Region Laterality Modality PFT 03/21/2021 1:30 PM POT ROOM TAPPER Narrative 03/23/2021 12:22 PM POT ROOM TAPPER [facility] Division of Pulmonary & Critical Care Medicine [address] [place] [address]; [address]; [place] [address]; [phone] Pulmonary Function Laboratory Pulmonary Stress Test Simple/Oxygen Assessment Patient: Aleah Gerber Date: 03/21/2021 Physician: MELISA Ht: 69IN ?? Wt: 252LBS Room: OP Ship Ceiler: LG : 1955 Diagnosis: ASTHMA Time(min) Distance (ft)/ Peters O2 L/M SpO2 HR Manny* BP FEV1/ ?% Pred Rest: ?RA 100 78 0 112/66 1.86/65 ? Walk/Bike: ? 1 ??RA 100 105 1 ?? 2 ??RA 98 108 2 ?? 3 ??RA 98 110 3 ?? 4 ??RA 98 110 4 ?? 5 ??RA 97 111 4 ?? 6 min 0 sec ?? RA 97 108 4 ?? Recovery: ? 1 ??RA 99 101 3 124/76 1.80/63 2 ??RA 97 82 2 ? / ? *Manny rate of perceived exertion (1-10 dyspnea scale) ?? Austin, CHEST 2003; 123:1408 Walk Test Summary: Six Minute Walk Distance: 1275 ft Six minute Walk Work [distance (m) x body wt (kg)]: 00799 kg.m (normal >60,000 kg.m) Oxygen required to maintain SpO2 greater than 90% during six minutes of walking: ??L/M Comments:O2A Interpretation: Breathing room air, SpO2 is normal at rest. During exercise sufficient to increase pulse from ??78 to 110 b/min, SpO2 is stable. ??On this basis, SpO2 is adequate at rest breathing room air and while walking breathing room air. ??This level of exercise is associated with no significant change of FEV1,. LAURA HODGSON MD By signing this report, the attending pulmonary physician certifies that he/she has personally reviewed and interpreted the graphic and numerical data associated with this pulmonary function study and has reviewed and /or edited a preliminary draft report and agrees with the written final report. PFT performed at:->[facility] Adult PFT Lab- CAM-8D Procedure:->Spirometry Procedure:->Oxygen Assessment Titration Cristobal Dong MD PFT ORDERABLES Final Result documented in this encounter Visit Diagnoses Diagnosis Moderate persistent asthma, unspecified whether complicated documented in this encounter Care Teams Window Shade Ring Sewer Relationship Specialty Start Date End Date Ravi Smith MD PCP - General 11/04/17 09/27/21 Aft, Kianna Machado MD PhD [address] [place] [address] Surgeon Surgical Oncology 11/22/17 Santiago Gilbert MD [address] [place] [address] Cashier Payments Received Gastroenterology 11/22/17 Dmitry Sanderson MD [address] [place] [address] Referring Physician Colon and Rectal Surgery 12/03/1805/06 Abbi Ventura MD [facility] [address] [place] [address] Medical Oncologist/Banking Manager Medical Oncology 12/03/18 Montse Thompson MD [address] [place] [address] Consulting Physician Gynecologic Oncology 12/03/18 Lela Hardy MD PhD [address] [facility] [address] [place] [address] Radiation Oncologist Radiation Oncology 12/23/18 Aft, Kianna Machado MD PhD [address] [facility] [address] [place] [address] Surgeon Surgical Oncology 12/23/18 09/17/21 documented as of this encounter
--- OUTSIDE RECORDS SUMMARY | 2024-04-24 13:39 | XMS_ITS | Encounter Summary ---
Author Organization [facility] Address [address] [place] [address] Phone Care Team Providers Care Rn Digestive Name Role Phone Ravi Smith MD Primary Care Provider [phone] Aft, Kianna Machado MD PhD Unavailable [phone] Santiago Gilbert MD Unavailable [phone] Dmitry Sanderson MD Unavailable [phone] Abbi Ventura MD Unavailable Montse Thompson MD Unavailable [phone] Lela Hardy MD PhD Unavailable [phone] Aft, Kianna Machado MD PhD Unavailable [phone] Encounter Details Date Type Department Care Team (Late st Contact Info) Description 12/23/2020 Orders Only [facility] Oncology [address] [place] [address] Abbi Ventura MD [address] [place], [place] [id number] Social History Tobacco Use Types Packs/Day Years [...] on file 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 DIESEL DRAGLINE OPERATOR Gender Identity Not on file Sexual Orientation Not on file documented as of this encounter Ordered Prescriptions Prescription Sig Dispense Quantity Refills Last Filled Start Date End Date gabapentin (NEURONTIN) 300 mg capsule Take 1 capsule (300 mg total) by mouth 3 (three) times a day 90 capsule 2 12/23/2020 documented in this encounter Plan of Treatment Not on file documented as of this encounter Visit Diagnoses Not on filedocumented in this encounter Discontinued Medications Medication Sig Discontinue Reason Start Date End Da te gabapentin (NEURONTIN) 300 mg capsule TAKE 1 CAPSULE BY MOUTH THREE TIMES DAILY Reorder 09/27/2020 12/23/2020 documented as of this encounter Care Teams Rn Digestive Relationship Specialty Start Date End Date Ravi Smith MD PCP - General 11/04/17 09/27/21 Aft, Kianna Machado MD PhD [address] [place] [address] Surgeon Surgical Oncology 11/22/17 Santiago Gilbert MD [address] [place] [address] Sys Dir Gastroenterology 11/22/17 Dmitry Sanderson MD [address] [place] [address] Referring Physician Colon and Rectal Surgery 12/03/1805/06 Abbi Ventura MD [address] [facility] [address] [place] [address] Medical Oncologist/Optic Fibre Drawer Medical Oncology 12/03/18 Montse Thompson MD [address] [facility] [address] [place] [address] Consulting Physician Gynecologic Oncology 12/03/18 Lela Hardy MD PhD [address] [facility] [address] [place], [place] [address] Radiation Oncologist Radiation Oncology 12/23/18 Aft, Kianna Machado MD PhD [address] [facility] [address] [place] [address] Surgeon Surgical Oncology 12/23/18 09/17/21 documented as of this encounter
--- OUTSIDE RECORDS SUMMARY | 2024-04-24 13:39 | XMS_ITS | Encounter Summary ---
Author Organization [facility] [facility] Address [address] [place] [address] Phone Care Team Providers Care Model And Dye Person Name Role Phone Ravi Smith MD Primary Care Provider [phone] Aft, Kianna Machado MD PhD Unavailable [phone] Santiago Gilbert MD Unavailable [phone] Dmitry Sanderson MD Unavailable [phone] Abbi Ventura MD Unavailable Montse Thompson MD Unavailable [phone] Lela Hardy MD PhD Unavailable [phone] Aft, Kianna Machado MD PhD Unavailable [phone] Encounter Details Date Type Department Care Team (Late st Contact Info) Description 03/27/2021 12:30 PM AUDIENCE DEVELOPMENT MANAGER Lab [facility] Oncology [address] [place] [address] Dehydration; Malignant neoplasm of upper-inner quadrant of left [...] on file 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 AUDIENCE DEVELOPMENT MANAGER Gender Identity Not on file Sexual Orientation Not on file documented as of this encounter Plan of Treatment Not on file documented as of this encounter Procedures Procedure Name Priority Date/Time Associated Diagnosis Comments EGFR STAT 03/27/2021 1:13 PM AUDIENCE DEVELOPMENT MANAGER Dehydration Malignant neoplasm of upper-inner quadrant of left breast in female, 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) (HCC) BASIC METABOLIC PANEL STAT 03/27/2021 1:13 PM AUDIENCE DEVELOPMENT MANAGER Dehydration Malignant neoplasm of upper-inner quadrant of left breast in female, 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) (HCC) documented in this encounter Results * (ABNORMAL) eGFR (03/27/2021 1:13 PM AUDIENCE DEVELOPMENT MANAGER) eGFR 32(L) 90 - 130 mL/min/1.7 3 m2 [facility] Comment: Interpretive Data Reference Interval Normal ?>/= 90 mL/min/1.73m2 Mildly decreased* ? 60 - 89 mL/min/1.73m2 Mildly to moderately decreased ?45 - 59 mL/min/1.73m2 Moderately to severely decreased ??30 - 44 mL/min/1.73m2 Severely decreased ?15 - 29 mL/min/1.73m2 Kidney Failure ?< 15 ??mL/min/1.73m2 *Relative to young adult level Estimated glomerular filtration rate is determined by the CKD-EPI equation recommended by the National Kidney Foundation (KDIGO 2012 Clinical Practice Guideline for the Evaluation and Management of Chronic Kidney Disease. Kidney Intnl Suppl May 2012;3:1). The CKD-EPI equation should not be used for patients with unstable renal function and has not been validated in children and those over 70. Current interpretive data was last reviewed 2020 Blood 03/27/2021 1:13 PM AUDIENCE DEVELOPMENT MANAGER 03/27/2021 1:16 PM AUDIENCE DEVELOPMENT MANAGER Abbi Ventura MD LAB BLOOD ORDERABLES Final Resul t [facility] Department [place] [address] * (ABNORMAL) Basic metabolic panel (03/27/2021 1:13 PM AUDIENCE DEVELOPMENT MANAGER) Pathologist [facility] Sodium 138 135 - 145 mmol/L [facility] Potassium, pl 3.9 3.3 - 4.9 mmol/L [facility] Chloride 104 97 - 110 mmol/L [facility] CO2 27 22 - 32 mmol/L [facility] Anion gap 7 2 - 15 mmol/L [facility] BUN 26(H) 8 - 25 mg/dL [facility] Creatinine 1.70(H) 0.60 - 1.10 mg/dL [facility] Glucose 135 70 - 199 mg/dL [facility] Comment: Interpretive Data Fasting glucose [...] interpretive data was last revised 2017. Calcium 9.5 8.5 - 10.3 mg/dL [facility] Blood 03/27/2021 1:13 PM AUDIENCE DEVELOPMENT MANAGER 03/27/2021 1:16 PM AUDIENCE DEVELOPMENT MANAGER Narrative [facility] - 03/27/2021 1:56 PM AUDIENCE DEVELOPMENT MANAGER Please Draw Post IVFS on Saturday03/27/21. Thank you! Abbi Ventura MD LAB BLOOD ORDERABLES Final Resul t [facility] Department [place] [address] documented in this encounter Visit Diagnoses Diagnosis Dehydration Malignant neoplasm of upper-inner quadrant of left breast in female, estrogen receptor negative (HCC) documented in this encounter Orders Appointment Requests Count Last Ordered Date Fi rst Ordered Date ONCBCN LAB APPOINTMENT 1 03/27/2021 documented in this encounter Care Teams Model And Dye Person Relationship Specialty Start Date End Date Ravi Smith MD PCP - General 11/04/17 09/27/21 Aft, Kianna Machado MD PhD [address] [place] [address] Surgeon Surgical Oncology 11/22/17 Santiago Gilbert MD [address] [place] [address] Field Staff Manager Gastroenterology 11/22/17 Dmitry Sanderson MD [address] [place] [address] Referring Physician Colon and Rectal Surgery 12/03/1805/06 Abbi Ventura MD [address] [place] [address] Medical Oncologist/Technical Research Scientist Medical Oncology 12/03/18 Montse Thompson MD [address] [place] [address] Consulting Physician Gynecologic Oncology 12/03/18 Lela Hardy MD PhD [address] [place] [address] Radiation Oncologist Radiation Oncology 12/23/18 Aft, Kianna Machado MD PhD [address] [place] [address] Surgeon Surgical Oncology 12/23/18 09/17/21 documented as of this encounter
--- OUTSIDE RECORDS SUMMARY | 2024-04-24 13:39 | XMS_ITS | Encounter Summary ---
Author Organization [facility] [facility] Address [address] [place] [address] Phone Care Team Providers Care Oil Refiner Name Role Phone Ravi Smith MD Primary Care Provider [phone] Aft, Kianna Machado MD PhD Unavailable [phone] Santiago Gilbert MD Unavailable [phone] Dmitry Sanderson MD Unavailable [phone] Abbi Ventura MD Unavailable Montse Thompson MD Unavailable [phone] Lela Hardy MD PhD Unavailable [phone] Aft, Kianna Machado MD PhD Unavailable [phone] Encounter Details Date Type Department Care Team (Late st Contact Info) Description 03/22/2021 Telephone [facility] Pulmonary [address] [facility] 8th [place] [address] [place] [id number] Adelina Morton RN Social History Tobacco Use Types Packs/Day [...] file 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 CERTIFIED ALCOHOL DRUG COUNSELOR Gender Identity Not on file Sexual Orientation Not on file documented as of this encounter Miscellaneous Notes * Telephone Encounter - Adelina Morton RN - 03/22/2021 3:30 PM CERTIFIED ALCOHOL DRUG COUNSELOR Informed pt that the RVP was neg. and CXR was clear. Instructed her to use Advair 1 inh bid, and a script will be sent for prednisone. Verbalized understanding. Prescription for prednisone 20mg. qd x5d, sent to pt's. pharmacy as ordered. IFIED ALCOHOL DRUG COUNSELOR documented in this encounter Plan of Treatment Not on file documented as of this encounter Visit Diagnoses Not on filedocumented in this encounter Care Teams Oil Refiner Relationship Specialty Start Date End Date Ravi Smith MD PCP - General 11/04/17 09/27/21 Aft, Kianna Machado MD PhD [address] [place] [address] Surgeon Surgical Oncology 11/22/17 Santiago Gilbert MD [address] [place] [address] Senior Director Of [employer] Gastroenterology 11/22/17 Dmitry Sanderson MD [address] [place] [address] Referring Physician Colon and Rectal Surgery 12/03/1805/06 Abbi Ventura MD [address] [place] [address] [address] [place] [address] Medical Oncologist/Shellac Polisher Medical Oncology 12/03/18 Montse Thompson MD [address] [place] [address] Consulting Physician Gynecologic Oncology 12/03/18 Lela Hardy MD PhD [address] [place] [address] Radiation Oncologist Radiation Oncology 12/23/18 Aft, Kianna Machado MD PhD [address] [place] [address] Surgeon Surgical Oncology 12/23/18 09/17/21 documented as of this encounter
--- OUTSIDE RECORDS SUMMARY | 2024-04-24 13:39 | XMS_ITS | Encounter Summary ---
Author Organization [facility] Address [address] [place] [address] Phone Care Team Providers Care Polymer Chemist Name Role Phone Ravi Smith MD Primary Care Provider [phone] Aft, Kianna Machado MD PhD Unavailable [phone] Santiago Gilbert MD Unavailable [phone] Dmitry Sanderson MD Unavailable [phone] Abbi Ventura MD Unavailable Montse Thompson MD Unavailable [phone] Lela Hardy MD PhD Unavailable [phone] Aft, Kianna Machado MD PhD Unavailable [phone] Reason for Visit * Reason Comments Sleep Apnea Encounter Details Date Type Department Care Team (Late st Contact Info) Description 11/14/2020 1:30 PM CDT Office Visit [facility] Pulmonary [address] 6[address] [place] [address] Mary Garcia MD [address] [place] [address] VIOLETTE (obstructive sleep apnea) (Primary Dx) Social History Tobacco Use Types [...] on file 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 Gender Identity Not on file Sexual Orientation Not on file documented as of this encounter Last Filed Vital Signs Vital Sign Reading Time Taken Comments Blood Pressure 128/69 11/14/2020 1:34 PM CDT Pulse 72 11/14/2020 1:34 PM CDT Temperature 36.1 ??C (97 ??F) 11/14/2020 1:34 PM CDT Respiratory Rate - - Oxygen Saturation 97% 11/14/2020 1:34 PM CDT Inhaled Oxygen Concentration - - Weight 112.9 kg (249 lb) 11/14/2020 1:34 PM CDT Height 175.3 cm (5' 9 ) 11/14/2020 1:34 PM CDT Body Mass Index 36.77 11/14/2020 1:34 PM CDT documented in this encounter Progress Notes * Mary Garcia MD - 11/14/2020 1:30 PM CDT Patient Name: ALEAH GERBER Medical Record Number (MRN): [id number] Date of (): 1955 Encounter Date: 11/14/2020 Last Visit: 11/09/2019 [facility] Follow up Visit PROBLEM LIST: 1. Obstructive sleep apnea. a. Diagnosed by home study 05/25/2019 with an RDI of 8.6 based on 3% definition. Oxygen saturation samina of 87%. b. Initiated on APAP 4 to 20 cm H2O. 2. Psychophysiologic insomnia. 3. 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 4. 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 BRCA2 positive, status post whole breast radiation. 5. Diabetes mellitus. 6. Hypertension. 7. History of suspected TIA during chemotherapy. 8. Hypercholesterolemia. 9. History of DVT and PE in May 2018. 10. COPD. 11. Inguinal hernia repair. 12. Bladder suspension. 13. Tubal ligation. Subjective: Aleah Gerber is a 65 y.o. female who is followed by the sleep clinic for management of mild VIOLETTE and psychological insomnia. Since her last visit in November 2019, she has developed issues with her CPAPmachine. She reports that her machine began to spray her face with water while she was asleep (after a few hours of wearing the mask). This happened repeatedly and led to her recurrently removing themask while asleep at night. As the problem continued, she stopped using her CPAP machine altogether. She estimates it has been 6 months since she was regularly using her CPAP machine. Regarding the machine, she has heated tubing and notes that there is still water in the machine the next morning orat the time when the malfunction occurs. She also develops issues with mask-seal and fit after the skin becomes wet and this also prevented her from keeping the mask on once this started happening. She has not reported the issues with her machine to the clinic until now and has not contacted the company who provide her the machine. Since she stopped using her machine, she has had a return to the symptoms which were typical for her before starting therapy. She reports 4-6 awakenings per night by her estimation. She wakes up feeling groggy. She has intense sleepiness during the day and takes naps daily, but some days will take multiple naps. She continues to struggle with racing thoughts that keep her from falling asleep. Shewill sit in bed for 3-4 hours before falling to sleep on some nights. She uses a journal to write out her thoughts but this does not always relieve the thought racing. She is not using alcohol or anyother sleep aids before going to bed. She acknowledges that her sleep hygiene could be improved. She goes to sleep at different times on different nights and does not have a consistent sleep schedule. Objective: Current Outpatient Medications on File Prior to Visit Medication Sig Dispense Refill ??? ALPRAZolam (XANAX) 0.25 mg tablet Take 0.25 mg by mouth 3 (three) times a day as needed for anxiety ??? atorvastatin (LIPITOR) 20 mg tablet Take 20 mg by mouth nightly 0 ??? DULoxetine DR (CYMBALTA) 60 mg capsule Take 60 mg by mouth daily ??? fluticasone propion-salmeteroL (ADVAIR DISKUS) 500-50 mcg/dose diskus inhaler Inhale 1 puff 2 (two) times a day Rinse mouth with water after use. Do not swallow. 60 each 5 ??? gabapentin (NEURONTIN) 300 mg capsule TAKE 1 CAPSULE BY MOUTH THREE TIMES DAILY 90 capsule 2 ??? hydroCHLOROthiazide (HYDRODIURIL) 12.5 mg tablet Take 12.5 mg by mouth every morning 0 ??? propranolol LA (INDERAL LA) 60 mg 24 hr capsule TK 1 C PO D ??? Rybelsus 14 mg tablet (Patient not taking: Reported on 11/14/2020) No current facility-administered medications on file prior to visit. Allergies Allergen Reactions ??? Oxaliplatin Swollen tongue Throat swelling ??? Tetanus Vaccines And Toxoid Swelling and Rash ROS General - intermittent night sweats, fatigue MSK - back and pressure point pain Neuro - tingling of extremities otherwise negative for ten organ systems reviewed except per HPI Vital Signs Vitals: 11/14/20 1334 BP: 128/69 BP Location: Right arm Patient Position: Sitting Pulse: 72 Temp: 36.1 ??C (97 ??F) SpO2: 97% Weight: 112.9 kg (249 lb) Height: 175.3 cm (5' 9 ) Body mass index is 36.77 kg/m??. Physical Exam: Constitutional: The patient is well appearing/well nourished, pleasant, comfortable and with appropriate mood. Head and Neck- The head is normocephalic and atraumatic. Eyes - sclera are clear and without injection ENT-Mallampati score of 3 Extremities- Extremities are warm and well perfused; there is no peripheral edema. Cardiovascular-regular rate and rhythm without murmur Lungs- clear to auscultation bilaterally. No wheezes or rales. Neuro - No facial asymmetry, moves all extremities Psych - Normal Mood Data: [place] Sleepiness Scale: 01/27 Sleep data - none available due to non-use of mask in recent months Assessment: Ms. Gerber is a 64-year-old woman with a history of mild obstructive sleep apnea and psychophysiologic insomnia. She has not worn her mask for nearly 6 months due to issues with water spraying on herface through the nose-piece and has had a decline in her quality of sleep and return of daytime sleepiness. Without data from her machine to review, it is challenging to determine if the water in her mask is part of a device malfunction or a problem which may be improved with adjustment of her device settings. Plan: 1. Patient advised to return to wearing current CPAP mask for a few weeks. This will allow us to review her sleep data and better determine if the issues she is having can be addressed by augmenting her machine settings or determine if the device is malfunctioning in a way that would require the device manufacture to repair. Advised her to keep the hose under the covers to keep condensation from building up. 2. Patient to return to clinic in 3-4 months to review data and decide how to proceed with her equipment. We will obtain a download in a few weeks to assess the settings. Tomas Zamora MD Pulmonary and Critical Care Fellow TEACHING PHYSICIAN ADDENDUM: I have seen and examined the patient with Dr. Zamora. I agree with the findings and plan of care as documented in the resident/fellow's note. I have edited the note. The patient has a Resmed device and it is not subject to the recall. Mary Garcia MD insurance sales agent Diplomate in Sleep Medicine, [place] [employer] documented in this encounter Plan of Treatment Not on file documented as of this encounter Visit Diagnoses Diagnosis VIOLETTE (obstructive sleep apnea)- Primary Obstructive sleep apnea (adult) (pediatric) documented in this encounter Care Teams Polymer Chemist Relationship Specialty Start Date End Date Ravi Smith MD PCP - General 11/04/17 09/27/21 Aft, Kianna Machado MD PhD [address] [place] [address] Surgeon Surgical Oncology 11/22/17 Santiago Gilbert MD [address] [place] [address] Safety Clothing And Equipment Developer Gastroenterology 11/22/17 Dmitry Sanderson MD [address] [place] [address] Referring Physician Colon and Rectal Surgery 12/03/1805/06 Abbi Ventura MD [address] [place] [address] [address] [place] [address] Medical Oncologist/Traffic Rate Clerk Medical Oncology 12/03/18 Montse Thompson MD [address] [place] [address] [address] [place] [address] Consulting Physician Gynecologic Oncology 12/03/18 Lela Hardy MD PhD [address] [place] [address] [address] [place], [place] [id number] Radiation Oncologist Radiation Oncology 12/23/18 Aft, Kianna Machado MD PhD [address] [place] [address] [address] [place] [address] Surgeon Surgical Oncology 12/23/18 09/17/21 documented as of this encounter
--- OUTSIDE RECORDS SUMMARY | 2024-04-24 13:39 | XMS_ITS | Encounter Summary ---
Author Organization [facility] Address [address] [place] [address] Phone Care Team Providers Care Qa Internship Name Role Phone Ravi Smith MD Primary Care Provider [phone] Aft, Kianna Machado MD PhD Unavailable [phone] Santiago Gilbert MD Unavailable [phone] Dmitry Sanderson MD Unavailable [phone] Abbi Ventura MD Unavailable Montse Thompson MD Unavailable [phone] Lela Hardy MD PhD Unavailable [phone] Aft, Kianna Machado MD PhD Unavailable [phone] Reason for Visit * Neurology (Routine) - Closed Specialty Diagnoses / Procedures Referred By Contac t Referred To Contact Diagnoses Neuropathy ([facility]) Procedures EMG/NCV -Please select the performing region: [facility] (All Locations); Procedure performed at: [facility] EMG Lab; Clinical Summary: generalized paresthesias and dysesthesias, previous chemo; Reason for referral or diagnostic question: ?... Hiwot Walters NP Phone: tel: fax: [facility] (All Locations) Referral ID Status Reason Start Date Expiration Date Visits Re quested Visits Authorized [id number] Closed 10/25/2020 11/24/2021 1 1 Encounter Details Date Type Department Care Team (Latest Contact Info) Description 11/16/2020 1:40 PM CDT Procedure visit [facility] Neurological Testing [address] 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 Procedures [facility] DEPARTMENT OF NEUROLOGY NEUROMUSCULAR ELECTRODIAGNOSTIC LABORATORY CLINICAL ELECTROMYOGRAPHY REPORT Patient: Aleah Gerber Birthdate: 1955 Study No: [id number] MRN No: [id number] Referring M.Toñito.: Hiwot Walters NP Date of Study:11/16/20 Examined by: Aguila Reese MD REASON FOR REFERRAL: This is a 65-year-old woman with paresthesias following chemotherapy study is requested to evaluatefor neuropathy. Of note, she has a prior study from 2019 for comparison. SUMMARY OF FINDINGS: 1. The left median motor NCS is normal. 2. The left peroneal motor NCS is normal. 3. The left tibial motor NCS is normal. 4. The left sural antidromic sensory NCS is normal. 5. The right sural antidromic sensory NCS is normal. 6. The left median antidromic sensory NCS is normal. 7. The left radial antidromic sensory NCS is normal. 8. Needle EMG was normal in the left dorsal interosseous pedis. Temperature was maintained above 32??C in the hand and above 30??C in the foot for all NCSs. CONCLUSION/INTERPRETATION: This is a normal study, specifically providing no electrodiagnostic support for a large-fiber polyneuropathy. There is no significant interval change when compared to the prior study from 2019. Aguila Reese MD Electromyographer, Larisa. By signing this report, the attending Electromyographer certifies that he/she personally reviewed the electrodiagnostic study and edited the report to fully conform with his/her intent. Abbreviations : CMAP = compound muscle action potential SNAP = sensory nerve action potential CNAP = compound nerve action potential MUP = motor unit potential Fib = fibrillation PSW = positive sharp wave NCS = nerve conduction study RNS = repetitive nerve stimulation Inquiries regarding study/report - call . Appointments - call . Fax no.: . Our correspondence address : [place] [address] [facility] Neurology, EMG Lab [place], [place] Data Report Full Name: Aleah Gerber Gender: Female Date of : 1955 Visit Date: 11/16/2020 1:37 PM Age: 65 Years Examining Physician: Dr. Reese Referring Physician: Selena Height: 5 feet 9 inch MNC Nerve / Sites Latency Amplitude Segments Distance Lat Diff Velocity ms mV mm ms m/s L Median - APB Wrist 3.27 9.3 Wrist - APB 70 Elbow 7.10 9.3 Elbow - Wrist 220 3.83 57.4 L Peroneal - EDB Ankle 4.06 5.5 Ankle - EDB 90 Fib head 11.13 4.7 Fib head - Ankle 330 7.06 46.7 Pop fossa 12.40 4.6 Pop fossa - Fib head 70 1.27 55.1 Pop fossa - Ankle 8.33 L Tibial - AH Ankle 4.27 12.0 Ankle - AH 85 Pop fossa 12.88 8.1 Pop fossa - Ankle 370 8.60 43.0 SNC Nerve / Sites Onset Lat Peak Lat Amplitude OnsetDiff Distance Cond Per ms ms ??V ms mm m/s L Median, Ulnar - Digits 2, 4, 4, 5 Median Digit 2 2.9 3.8 12 2.9 140 49 L Radial - Anatomical snuff box (Forearm) Forearm 1.0 2.0 22 1.0 100 96 R Sural - Ankle (Calf) Calf 2.7 3.8 9 2.7 140 52 L Sural - Ankle (Calf) Calf 3.2 4.2 9 3.2 140 44 Summary Insertional Spontaneous MUAP Comments Muscle Nerve Roots Activity Fib PSW Fasc Other Dur. Amp Poly Recruit Activate Comments L. Dorsal interossei (pedis) III & IV Lateral plantar S1-S2 Normal None None None . Normal Normal None Normal Normal . documented in this encounter Plan of Treatment Not on file documented as of this encounter Procedures Procedure Name Priority Date/Time Associated Diagnosis Comments EMG/NCV Routine 11/16/2020 Neuropathy (CMS/HCC) documented in this encounter Results * EMG/NCV -Please select the performing region: [facility] (All Locations); Procedure performed at: [facility] EMG Lab; Clinical Summary: generalized paresthesias and dysesthesias, previous chemo; Reason for referral or diagnostic question: ?... (11/16/2020) Anatomical Region Laterality Modality Other Hiwot Walters VP RHEUMATOLOGY NEUROLOGY ORDERABLES Final R esult documented in this encounter Visit Diagnoses Diagnosis Neuropathy (CMS/HCC) Mononeuritis of unspecified site documented in this encounter Care Teams Qa Internship Relationship Specialty Start Date End Date Ravi Smith MD PCP - General 11/04/17 09/27/21 Kianna Bunch MD PhD [address] [place] [address] Surgeon Surgical Oncology 11/22/17 Santiago Gilbert MD [address] [place] [address] Coating Mixer Tender Gastroenterology 11/22/17 Dmitry Sanderson MD [address] [place] [address] Referring Physician Colon and Rectal Surgery 12/03/1805/06 Abbi Ventura MD [address] [place] [address] [address] [place] [address] Medical Oncologist/It Business Analyst Medical Oncology 12/03/18 Montse Thompson MD [address] [place] [address] [address] [place] [address] Consulting Physician Gynecologic Oncology 12/03/18 Lela Hardy MD PhD [address] [place] [address] [address] [place] [address] Radiation Oncologist Radiation Oncology 12/23/18 Kianna Bunch MD PhD [address] [place] [address] [address] [place] [address] Surgeon Surgical Oncology 12/23/18 09/17/21 documented as of this encounter
--- OUTSIDE RECORDS SUMMARY | 2024-04-24 13:39 | XMS_ITS | Encounter Summary ---
Author Organization [facility] Address [address] [place] [address] Care Team Providers Care Customer Sales Consultant Name Role Phone Ravi Smith MD Primary Care Provider [phone] Aft, Kianna Machado MD PhD Unavailable [phone] Santiago Gilbert MD Unavailable [phone] Dmitry Sanderson MD Unavailable [phone] Abbi Ventura MD Unavailable Montse Thompson MD Unavailable [phone] Lela Hardy MD PhD Unavailable Aft, Kianna Machado MD PhD Unavailable [phone] Encounter Details Date Type Department Care Team (Late st Contact Info) Description 04/03/2021 Telephone [facility] [address] [facility] 1st [place] [address] Aracelis Crisostomo Social History Tobacco Use Types Packs/Day Years [...] on file 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 Left vm with contact information for return call.04/03/21 STOCK FARMERS documented in this encounter Plan of Treatment Not on file documented as of this encounter Visit Diagnoses Not on filedocumented in this encounter Care Teams Customer Sales Consultant Relationship Specialty Start Date End Date Ravi Smith MD PCP - General 11/04/17 09/27/21 Aft, Kianna Machado MD PhD [address] [place] [address] Surgeon Surgical Oncology 11/22/17 Santiago Gilbert MD [address] [place] [address] Dramatic Critic Gastroenterology 11/22/17 Dmitry Sanderson MD [address] [place] [address] Referring Physician Colon and Rectal Surgery 12/03/1805/06 Abbi Ventura MD [address] [place] [address] Medical Oncologist/Soft Metals Engraver Hand Medical Oncology 12/03/18 Montse Thompson MD [address] [place] [address] Consulting Physician Gynecologic Oncology 12/03/18 Lela Hardy MD PhD [address] [place] [address] Radiation Oncologist Radiation Oncology 12/23/18 Aft, Kianna Machado MD PhD [address] [facility] [address] [place] [address] Surgeon Surgical Oncology 12/23/18 09/17/21 documented as of this encounter
--- OUTSIDE RECORDS SUMMARY | 2024-04-24 13:39 | XMS_ITS | Encounter Summary ---
Author Organization [facility] Healthcare Address [address] [place] [address] Care Team Providers Care Sped Teacher Name Role Phone Ravi Smith MD Primary Care Provider [phone] Aft, Kianna Machado MD PhD Unavailable [phone] Santiago Gilbert MD Unavailable [phone] Dmitry Sanderson MD Unavailable [phone] Abbi Ventura MD Unavailable Montse Thompson MD Unavailable [phone] Lela Hardy MD PhD Unavailable [phone] Aft, Kianna Machado MD PhD Unavailable [phone] Reason for Referral * MRI/CAT/PET Scan (Routine) - Closed Specialty Diagnoses / Procedures [facility] To Contact Radiology Diagnoses Malignant neoplasm of upper-inner quadrant of left breast in female, estrogen receptor negative (HCC) Procedures MRI Abdomen Pelvis W WO Contrast Abbi Ventura MD [address] [facility] [address] [place] [address] Phone: tel: fax: [facility] Referral ID Status Reason Start Date Expiration Date Visits Re quested Visits Authorized [id number] Closed 03/28/2021 04/27/2022 1 1 ITORY SERVICE REPRESENTATIVE Reason for Visit * MRI/CAT/PET Scan (Routine) - Closed Specialty Diagnoses / Procedures Referred By Vijaya t Referred To Contact Radiology Diagnoses Malignant neoplasm of upper-inner quadrant of left breast in female, estrogen receptor negative (HCC) Procedures MRI Abdomen Pelvis W WO Contrast Abbi Ventura MD [address] [facility] [address] [place] [address] Phone: tel: fax: [facility] Referral ID Status Reason Start Date Expiration Date Visits Re quested Visits Authorized [id number] Closed 03/28/2021 04/27/2022 1 1 Encounter Details Date Type Department Care Team (Latest Contact Info) Description 04/25/2021 3:21 PM TERRITORY SERVICE REPRESENTATIVE - 04/25/2021 11:59 PM TERRITORY SERVICE REPRESENTATIVE Hospital Encounter [facility] [address] [place] [address] Abbi Ventura MD [address] [facility] [address] [place] [address] Malignant neoplasm of upper-inner quadrant [...] on file 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 TERRITORY SERVICE REPRESENTATIVE Gender Identity Not on file Sexual [...] Schedule Routine, Read Routine (OP Routine) 04/25/2021 4:40 PM TERRITORY SERVICE REPRESENTATIVE Malignant neoplasm of upper-inner quadrant of left breast in female, 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) (HCC) documented in this encounter Results * MRI Abdomen Pelvis W WO Contrast (04/25/2021 4:40 PM TERRITORY SERVICE REPRESENTATIVE) Anatomical Region Laterality Modality Body N/A Magnetic Resonan ce 04/26/2021 9:42 AM TERRITORY SERVICE REPRESENTATIVE Impressions 04/26/2021 12:28 PM TERRITORY SERVICE REPRESENTATIVE 1. ??No imaging evidence of metastatic disease in the abdomen or pelvis. Dictated by: Cherise Mendoza M.D. The radiology attending physician has personally reviewed this study, and had reviewed and/or edited this written report and agrees with it. Electronically signed by: Jose Daniels M.D. Narrative 04/26/2021 12:28 PM TERRITORY SERVICE REPRESENTATIVE EXAMINATION: 1. MAGNETIC RESONANCE IMAGING OF THE ABDOMEN WITHOUT AND WITH CONTRAST 2. 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 ?? Protocol: Abdomen dynamic and pelvis Contrast: Eovist 20 mL COMPARISON: 10/06/2020 FINDINGS: Liver: Steatosis but no cirrhosis - Bile ducts: Normal - Focal liver lesions: There is a hypoenhancing lesion measuring 1 cm x 0.9 cm on the venous phase (series 35 image 42) in hepatic segment 4 without correlate on T2 or diffusion restriction. ??Arterial enhancement and is unable to be assessed due to motion artifact on the arterial phase. ??This lesion demonstrates dropout on the opposed phase and is consistent with focal fat. ??No suspicious liver lesions are noted. - Vasculature: Normal Gallbladder: Gallstone Pancreas: Normal Spleen: Normal Adrenals: Normal Kidneys: There are right parapelvic and simple cysts. ??Tiny small simple left renal cysts are noted. ??No hydronephrosis in either kidneys. Bladder: Normal Reproductive organs: Uterus is surgically removed. Other Findings: The lung bases are clear. ??No free fluid in the abdomen or pelvis. ??No suspicious osseous lesions. Procedure Note Jose Daniels MD - 04/26/2021 EXAMINATION: 1. MAGNETIC RESONANCE IMAGING OF THE ABDOMEN WITHOUT AND WITH CONTRAST 2. MAGNETIC RESONANCE IMAGING OF THE PELVIS WITHOUT AND WITH CONTRAST HISTORY: Hx of colon cancer and triple negative left breast cancer, status post left hemicolectomy, BCT and chemoradiation TECHNIQUE: MRI of the abdomen and pelvis was performed prior to and following intravenous administration of gadolinium contrast. Protocol: Abdomen dynamic and pelvis Contrast: Eovist 20 mL COMPARISON: 10/06/2020 FINDINGS: Liver: Steatosis but no cirrhosis - Bile ducts: Normal - Focal liver lesions: There is a hypoenhancing lesion measuring 1 cm x 0.9 cm on the venous phase (series 35 image 42) in hepatic segment 4 without correlate on T2 or diffusion restriction. Arterial enhancement and is unable to be assessed due to motion artifact on the arterial phase. This lesion demonstrates dropout on the opposed phase and is consistent with focal fat. No suspicious liver lesions are noted. - Vasculature: Normal Gallbladder: Gallstone Pancreas: Normal Spleen: Normal Adrenals: Normal Kidneys: There are right parapelvic and simple cysts. Tiny small simple left renal cysts are noted. No hydronephrosis in either kidneys. Bladder: Normal Reproductive organs: Uterus is surgically removed. Other Findings: The lung bases are clear. No free fluid in the abdomen or pelvis. No suspicious osseous lesions. IMPRESSION: 1. No imaging evidence of metastatic disease in the abdomen or pelvis. Dictated by: Cherise Mendoza M.D. The radiology attending physician has personally reviewed this study, and had reviewed and/or edited this written report and agrees with it. Electronically signed by: Jose Daniels M.D. Abbi Ventura MD [facility] [place] PROCEDURES Final Result documented in this encounter Visit Diagnoses Diagnosis Malignant neoplasm of upper-inner quadrant of left breast in female, estrogen receptor negative (HCC) documented in this encounter Administered Medications Inactive Administered Medications - up to 3 most recent administrations Medication Order MAR Action Action Date Dose Rate Site gadoxetate (EOVIST) 0.25 mmol/mL (181.43 mg/mL) injection 10 mL 10 mL, intravenous, Once in imaging, contrast, Starting on Sat04/25/21 at 1621, For 1 dose Contrast Given 04/25/2021 4:21 PM TERRITORY SERVICE REPRESENTATIVE 20 mL sodium chloride 0.9% flush 125 mL 125 mL, intravenous, As needed, line care, Starting on Sat04/25/21 at 1621 Given 04/25/2021 4:21 PM TERRITORY SERVICE REPRESENTATIVE 125 mL documented in this encounter Care Teams Sped Teacher Relationship Specialty Start Date End Date Ravi Smith MD PCP - General 11/04/17 09/27/21 Aft, Kianna Machado MD PhD [address] [place], [place] [id number] Surgeon Surgical Oncology 11/22/17 Santiago Gilbert MD [address] [place] [address] Cashier Self Service Gasoline Gastroenterology 11/22/17 Dmitry Sanderson MD [address] [place] [address] Referring Physician Colon and Rectal Surgery 12/03/1805/06 Abbi Ventura MD [facility] [address] [address] [place], [place] [id number] Medical Oncologist/Hospitality Services Manager Medical Oncology 12/03/18 Montse Thompson MD [address] [place], [place] [id number] Consulting Physician Gynecologic Oncology 12/03/18 Lela Hardy MD PhD [address] [place], [place] [id number] Radiation Oncologist Radiation Oncology 12/23/18 Aft, Kianna Machado MD PhD [address] [facility] [address] [place] [address] Surgeon Surgical Oncology 12/23/18 09/17/21 documented as of this encounter
--- OUTSIDE RECORDS SUMMARY | 2024-04-24 13:39 | XMS_ITS | Encounter Summary ---
Author Organization [facility] Address [address] [place] [address] Phone Care Team Providers Care Residential Sales Associate Name Role Phone Ravi Smith MD Primary Care Provider [phone] Aft, Kianna Machado MD PhD Unavailable [phone] Santiago Gilbert MD Unavailable [phone] Dmitry Sanderson MD Unavailable [phone] Abbi Ventura MD Unavailable Montse Thompson MD Unavailable [phone] Lela Hardy MD PhD Unavailable [phone] Aft, Kianna Machado MD PhD Unavailable [phone] Encounter Details Date Type Department Care Team (Late st Contact Info) Description 04/27/[address] [address] Uriel Corral Social History Tobacco Use Types [...] file 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 CERTIFIED PHLEBOTOMY TECHNICIAN Gender Identity Not on file Sexual Orientation Not on file documented as of this encounter Miscellaneous Notes * Telephone Encounter - Uriel Corral - 04/27/2021 8:13 AM CST This RN called patient with CT chest and MRI abdomen/pelvis results. Per Deepa Burger NP last office note from 03/23, if scans are clear, patient will RTC in 6 months. Patient verbalizes understanding ofscan results and agrees with plan. Patient aware of scheduled appointments on 09/07/21. No further questions/concerns noted at this time. Uriel Corral RN IFIED PHLEBOTOMY TECHNICIAN documented in this encounter Plan of Treatment Not on file documented as of this encounter Visit Diagnoses Not on filedocumented in this encounter Care Teams Residential Sales Associate Relationship Specialty Start Date End Date Ravi Smith MD PCP - General 11/04/17 09/27/21 Aft, Kianna Machado MD PhD [address] [place] [address] Surgeon Surgical Oncology 11/22/17 Santiago Gilbert MD [address] [place] [address] Clinical Trials Systems Administrator Gastroenterology 11/22/17 Dmitry Sanderson MD [address] [place] [address] Referring Physician Colon and Rectal Surgery 12/03/1805/06 Abbi Ventura MD [address] [facility] [address] [place] [address] Medical Oncologist/High Scaler Medical Oncology 12/03/18 Montse Thompson MD [address] [facility] [address] [place], [place] [id number] Consulting Physician Gynecologic Oncology 12/03/18 Lela Hardy MD PhD [address] [facility] [address] [place], [place] [id number] Radiation Oncologist Radiation Oncology 12/23/18 Aft, Kianna Machado MD PhD [address] [place] [address] [address] [place], [place] [id number] Surgeon Surgical Oncology 12/23/18 09/17/21 documented as of this encounter
--- OUTSIDE RECORDS SUMMARY | 2024-04-24 13:39 | XMS_ITS | Encounter Summary ---
Author Organization [facility] Address [address] [place] [address] Phone Care Team Providers Care Mohs Surgeon/General Dermatologist Name Role Phone Ravi Smith MD Primary Care Provider [phone] Aft, Kianna Machado MD PhD Unavailable [phone] Santiago Gilbert MD Unavailable [phone] Dmitry Sanderson MD Unavailable [phone] Abbi Ventura MD Unavailable Montse Thompson MD Unavailable [phone] Lela Hardy MD PhD Unavailable [phone] Aft, Kainna Machado MD PhD Unavailable [phone] Reason for Visit * Reason Comments OP Infusion Encounter Details Date Type Department Care Team (Late st Contact Info) Description 03/23/2021 3:30 PM STRAND FORMING MACHINE OPERATOR Infusion [facility] Oncology [address] [place] [address] Malignant neoplasm of upper-inner quadrant of left breast in female, 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) (HCC) (Primary Dx); Dehydration Social History Tobacco Use Types Packs/Day Years [...] on file 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 STRAND FORMING MACHINE OPERATOR Gender Identity Not on file Sexual Orientation Not on file documented as of this encounter Nursing Notes * Jessica Sue Rhett - 03/23/2021 3:30 PM CST Patient tolerated remainder of fluids well. DC'd home ambulatory in stable condition. [place] FORMING MACHINE OPERATOR documented in this encounter Plan of Treatment Not on file documented as of this encounter Visit Diagnoses Diagnosis Malignant neoplasm of upper-inner quadrant of left breast in female, estrogen receptor negative (HCC)- Primary Dehydration documented in this encounter Administered Medications Inactive Administered Medications - up to 3 most recent administrations Medication Order MAR Action Action Date Dose Rate Site sodium chloride 0.9% bolus 1,000 mL 1,000 mL, intravenous, at 1,000 mL/hr, Administer over 1 Hours, Once, On Bonnie 03/23/21 at 1600, For 1 doseIndications:Dehydration New Bag 03/23/2021 3:37 PM STRAND FORMING MACHINE OPERATOR 1,000 mL 100 0 mL/hr documented in this encounter Orders Medications Ordered That [place] ht Not Have Been Administered Count Last Ordered Date First Ordered Date sodium chloride 0.9% bolus 1,000 mL 1 03/23 Nursing Count Last Ordered Date First Orde red Date ONCBCN NURSING COMMUNICATION [id number] 1 03/23 Appointment Requests Count Last Ordered Date Fi rst Ordered Date INFUSION APPT REQUEST 60 MIN 1 03/23/2021 documented in this encounter Care Teams Mohs Surgeon/General Dermatologist Relationship Specialty Start Date End Date Ravi Smith MD PCP - General 11/04/17 09/27/21 Aft, Kianna Machado MD PhD [address] [place] [address] Surgeon Surgical Oncology 11/22/17 Santiago Gilbert MD [address] [place] [address] Supervisor Fabrication Gastroenterology 11/22/17 Dmitry Sanderson MD [address] [place] [address] Referring Physician Colon and Rectal Surgery 12/03/1805/06 Abbi Ventura MD [address] [facility] [address] [place] [address] Medical Oncologist/Behavioral Interventionist Medical Oncology 12/03/18 Montse Thompson MD [address] [facility] [address] [place] [address] Consulting Physician Gynecologic Oncology 12/03/18 Lela Hardy MD PhD [address] [facility] [address] [place] [address] Radiation Oncologist Radiation Oncology 12/23/18 Aft, Kianna Machado MD PhD [address] [facility] [address] [place] [address] Surgeon Surgical Oncology 12/23/18 09/17/21 documented as of this encounter
--- OUTSIDE RECORDS SUMMARY | 2024-04-24 13:39 | XMS_ITS | Encounter Summary ---
Author Organization [facility] Healthcare Address [address] [place] [address] Care Team Providers Care Senior Design Engineering Specialist Name Role Phone Ravi Smith MD Primary Care Provider [phone] Aft, Kianna Machado MD PhD Unavailable [phone] Santiago Gilbert MD Unavailable [phone] Dmitry Sanderson MD Unavailable [phone] Abbi Ventura MD Unavailable Montse Thompson MD Unavailable [phone] Lela Hardy MD PhD Unavailable [phone] Aft, Kianna Machado MD PhD Unavailable [phone] Reason for Referral * MRI/CAT/PET Scan (Routine) - Closed Specialty Diagnoses / Procedures [facility] To Contact Radiology Diagnoses Malignant neoplasm of upper-inner quadrant of left breast in female, 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) Procedures MRI Breast Bilateral W WO Contrast Abbi Ventura MD [address] [facility] [address] [place] [address] Phone: tel: fax: [facility] Referral ID Status Reason Start Date Expiration Date Visits Re quested Visits Authorized [id number] Closed 03/23/2021 04/22/2022 1 1 CH AND BRACELET MAKER Reason for Visit * MRI/CAT/PET Scan (Routine) - Closed Specialty Diagnoses / Procedures Referred By Contac t Referred To Contact Radiology Diagnoses Malignant neoplasm of upper-inner quadrant of left breast in female, 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) Procedures MRI Breast Bilateral W WO Contrast Abbi Ventura MD [address] [facility] [place] [address] Phone: tel: fax: [facility] Referral ID Status Reason Start Date Expiration Date Visits Re quested Visits Authorized [id number] Closed 03/23/2021 04/22/2022 1 1 Encounter Details Date Type Department Care Team (Latest Contact Info) Description 05/15/2021 2:45 PM [employer]CH [employer] BRACE[employer]KER - 05/15/2021 11:59 PM [employer] AND BRACE[employer] Hospital Encounter [facility] [address] [place], [place] [id number] Abbi Ventura MD [address] [place] [address] Malignant neoplasm of upper-inner quadrant [...] on file 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 BROOCH AND BRACELET MAKER Gender Identity Not on file Sexual [...] CONTRAST Schedule Routine, Read Routine (OP Routine) 05/15/2021 4:27 PM [employer] AND BRACELET MAKER Malignant neoplasm of upper-inner quadrant of left breast in female, 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) (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) documented in this encounter Results * MRI Breast Bilateral W WO Contrast (05/15/2021 4:27 PM BR[employer]CH AND BRACELET MAKER) Anatomical Region Laterality Modality Breast Bilateral Magnetic Resonan ce 05/16/2021 9:43 AM [employer]CH AND BRACELET MAKER Impressions 05/16/2021 9:43 AM BROOCH AND BRACELET MAKER No MR evidence of malignancy. Continued annual surveillance with breast MRI and bilateral mammography recommended. OVERALL FINAL ASSESSMENT: BI-RADS Category 1: Negative. Electronically signed by: Bety Mendoza M.D. Narrative 05/16/2021 9:43 AM BROOCH AND BRACELET MAKER EXAMINATION: 1. MRI EXAMINATION OF THE BREASTS WITH AND WITHOUT CONTRAST 2. 3D POST PROCESSING ON A DEDICATED 3D WORKSTATION HISTORY: 65-year-old female with history of left breast carcinoma treated conservatively in 2018. ??BRCA2 positive. ?? DATE OF LAST MENSTRUAL PERIOD: Postmenopausal TECHNIQUE: MRI examination of the breasts per breast tumor protocol with and without gadolinium contrast. ??A dedicated breast imaging coil was used. ??The images were transferred to a breast CAD system for 3D post processing and contrast kinetics analysis. ?? Contrast: Dotarem, 20 ml COMPARISON: 2017 breast MRI, mammogram 10/06/2020 BREAST COMPOSITION: Heterogeneous fibroglandular tissue BACKGROUND PARENCHYMAL ENHANCEMENT: Mild FINDINGS: Left breast conservation therapy changes. ??No suspicious enhancing abnormalities in either breast. Stable area of enhancement in the right anterior lower lung field, unchanged from at least 2018. No abnormally enlarged lymph nodes are identified in the visualized portions of either axilla. Procedure Note Bety Mendoza MD - 05/16/2021 EXAMINATION: 1. MRI EXAMINATION OF THE BREASTS [...] the visualized portions of either axilla. IMPRESSION: No MR evidence of malignancy. Continued annual surveillance with breast MRI and bilateral mammography recommended. OVERALL FINAL ASSESSMENT: BI-RADS Category 1: Negative. Electronically signed by: Bety Mendoza M.D. Abbi Ventura MD [facility] MRI PROCEDURES Final Result documented in this [...] Action Date Dose Rate Site gadoterate meglumine (DOTAREM) 0.5 mmol/mL injection 20 mL 20 mL, intravenous, Once in imaging, contrast, Starting on Sat05/15/21 at 1557, For 1 dose Contrast Given 05/15/2021 3:57 PM BR[employer]CH AND BRACELET MAKER 20 mL sodium chloride 0.9% flush 125 mL 125 mL, intravenous, As needed, line care, Starting on Sat05/15/21 at 1557 Given 05/15/2021 3:58 PM BROOCH AND BRACELET MAKER 125 mL documented in this encounter Care Teams Senior Design Engineering Specialist Relationship Specialty Start Date End Date Ravi Smith MD PCP - General 11/04/17 09/27/21 Aft, Kianna Machado MD PhD [address] [place] [address] Surgeon Surgical Oncology 11/22/17 Santiago Gilbert MD [address] [place] [address] Wash Oil Pump Operator Gastroenterology 11/22/17 Dmitry Sanderson MD [address] [place] [address] Referring Physician Colon and Rectal Surgery 12/03/1805/06 Abbi Ventura MD [address] [place] [address] [address] [place] [address] Medical Oncologist/Tactical Debriefer Officer Medical Oncology 12/03/18 Montse Thompson MD [address] [place] [address] [address] [place] [address] Consulting Physician Gynecologic Oncology 12/03/18 Lela Hardy MD PhD [address] [place] [address] [address] [place] [address] Radiation Oncologist Radiation Oncology 12/23/18 Aft, Kianna Machado MD PhD [address] [place] [address] [address] [place] [address] Surgeon Surgical Oncology 12/23/18 09/17/21 documented as of this encounter
--- OUTSIDE RECORDS SUMMARY | 2024-04-24 13:39 | XMS_ITS | Encounter Summary ---
Author Organization [facility] Address [address] [place] [address] Phone Care Team Providers Care Medical Billing Assistant Name Role Phone Ravi Smith MD Primary Care Provider [phone] Aft, Kianna Machado MD PhD Unavailable [phone] Santiago Gilbert MD Unavailable [phone] Dmitry Sanderson MD Unavailable [phone] Abbi Ventura MD Unavailable Montse Thompson MD Unavailable [phone] Lela Hardy MD PhD Unavailable Aft, Kianna Machado MD PhD Unavailable [phone] Encounter Details Date Type Department Care Team (Late st Contact Info) Description 03/23/2021 2:30 PM PREPARATORY TECHNICIAN Lab [facility] Oncology [address] [place] [address] Malignant neoplasm of upper-inner quadrant of left [...] on file 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 PREPARATORY TECHNICIAN Gender Identity Not on file Sexual Orientation Not on file documented as of this encounter Plan of Treatment Not on file documented as of this encounter Procedures Procedure Name Priority Date/Time Associated Diagnosis Comments URINALYSIS AND REFLEX TO MICROSCOPIC AND CULTURE Routine 03/23/2021 4:52 PM PREPARATORY TECHNICIAN Malignant neoplasm of upper-inner quadrant of left breast in female, 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) (HCC) EGFR STAT 03/23/2021 4:43 PM PREPARATORY TECHNICIAN Malignant neoplasm of upper-inner quadrant of left breast in female, 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) (HCC) BASIC METABOLIC PANEL STAT 03/23/2021 4:43 PM PREPARATORY TECHNICIAN Malignant neoplasm of upper-inner quadrant of left breast in female, 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) (HCC) EGFR Routine 03/23/2021 2:02 PM PREPARATORY TECHNICIAN Malignant neoplasm of upper-inner quadrant of left breast in female, 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) (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) DIFFERENTIAL AUTO Routine 03/23/2021 2:0 2 PM PREPARATORY TECHNICIAN Malignant neoplasm of upper-inner quadrant of left breast in female, 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) (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) CBC WITH AUTO DIFFERENTIAL Routine 03/23/2021 2:02 PM PREPARATORY TECHNICIAN Malignant neoplasm of upper-inner quadrant of left breast in female, 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) (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) CEA Routine 03/23/2021 2:02 PM PREPARATORY TECHNICIAN Malignant neoplasm of upper-inner quadrant of left breast in female, 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) (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) COMPREHENSIVE METABOLIC PANEL Routine 03/23/2021 2:02 PM PREPARATORY TECHNICIAN Malignant neoplasm of upper-inner quadrant of left breast in female, 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) (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) documented in this encounter Results * Urinalysis reflex to microscopic and culture Urine (03/23/2021 4:52 PM PREPARATORY TECHNICIAN) Pathologist [facility] Color, ur Straw Yellow [facility] Clarity, ur Clear Clear [facility] Specific gravity, ur 1.021 1.003 - 1.030 [facility] pH, urine 6 [facility] Protein, ur ql Negative Negative [facility] Glucose, ur ql Negative Negative [facility] Ketones, ur Negative Negative [facility] Bilirubin, ur Negative Negative [facility] Blood, ur Negative Negative [facility] Urobilinogen, ur <2.0 <2.0 mg/dL [facility] Nitrite, ur Negative Negative [facility] Leukocyte esterase, ur Negative Negative [facility] UA reflex comment Reflex conditions for microscopic UA and culture not met. [facility] Urine 03/23/2021 4:52 PM PREPARATORY TECHNICIAN 03/23/2021 7:07 PM PREPARATORY TECHNICIAN Narrative [facility] - 03/23/2021 7:25 PM PREPARATORY TECHNICIAN ?? Urine pH is affected by diet, medications, systemic acid-base disturbances, and renal tubular function. ??pH may affect urinary stone formation. ??For example, urine pH below 6.0 may help reduce the tendency for calcium phosphate stones and pH greater than 6.0 may reduce the tendency for uric acid stone formation. Source: [employer]. Last revised 05-16-2017 us Abbi Ventura MD LAB MICROBIOLOGY - GENERAL ORDER YFN Final Result [facility] Department [place] [address] * (ABNORMAL) eGFR (03/23/2021 4:43 PM PREPARATORY TECHNICIAN) Pathologist [facility] eGFR 27(L) 90 - 130 mL/min/1.7 3 m2 [facility] Comment: Interpretive Data Reference Interval Normal [...] interpretive data was last reviewed 2020 Blood 03/23/2021 4:43 PM PREPARATORY TECHNICIAN 03/23/2021 4:43 PM PREPARATORY TECHNICIAN us Abbi Ventura MD LAB BLOOD ORDERABLES Final Resul t [facility] Department [place] [address] * (ABNORMAL) Basic metabolic panel (03/23/2021 4:43 PM PREPARATORY TECHNICIAN) Sodium 142 135 - 145 mmol/L [facility] Potassium, pl 4.3 3.3 - 4.9 mmol/L [facility] Chloride 109 97 - 110 mmol/L [facility] CO2 27 22 - 32 mmol/L [facility] Anion gap 6 2 - 15 mmol/L [facility] BUN 32(H) 8 - 25 mg/dL [facility] Creatinine 1.91(H) 0.60 - 1.10 mg/dL [facility] Glucose 152 70 - 199 mg/dL [facility] Comment: Interpretive Data Fasting glucose [...] interpretive data was last revised 2017. Calcium 8.8 8.5 - 10.3 mg/dL [facility] Blood 03/23/2021 4:43 PM PREPARATORY TECHNICIAN 03/23/2021 4:43 PM PREPARATORY TECHNICIAN Narrative [facility] - 03/23/2021 5:05 PM PREPARATORY TECHNICIAN Recheck BMP after fluids us Abbi Ventura MD LAB BLOOD ORDERABLES Final Resul t [facility] Department [place] [address] * (ABNORMAL) eGFR (03/23/2021 2:02 PM PREPARATORY TECHNICIAN) eGFR 26(L) 90 - 130 mL/min/1.7 3 m2 [facility] Comment: Interpretive Data Reference Interval Normal [...] interpretive data was last reviewed 2020 Blood 03/23/2021 2:02 PM PREPARATORY TECHNICIAN 03/23/2021 2:05 PM PREPARATORY TECHNICIAN us Abbi Ventura MD LAB BLOOD ORDERABLES Final Resul t [facility] Department [place] [address] * (ABNORMAL) Differential, auto (03/23/2021 2:02 PM PREPARATORY TECHNICIAN) Neutrophil abs 6.7(H) 1.7 - 6.5 K/cumm [facility] Imm gran abs 0.0 0.0 - 0.1 K/cumm [facility] Lymphocyte abs 1.9 0.8 - 3.3 K/cumm [facility] Monocyte abs 0.7 0.2 - 0.8 K/cumm [facility] Eosinophil abs 0.4 0.0 - 0.5 K/cumm [facility] Basophil abs 0.1 0.0 - 0.1 K/cumm [facility] Neutrophil pct 68.4 % [facility] Comment: Interpretive Data Percent cell count reference ranges are not reported, since discordance with absolute values may lead to misinterpretation of CBC data. Current Interpretive Data was last revised on 2017. Imm gran pct 0.4 % [facility] Comment: Interpretive Data Percent cell count reference ranges are not reported, since discordance with absolute values may lead to misinterpretation of CBC data. Current Interpretive Data was last revised on 2017. Lymphocyte pct 19.4 % [facility] Comment: Interpretive Data Percent cell count reference ranges are not reported, since discordance with absolute values may lead to misinterpretation of CBC data. Current Interpretive Data was last revised on 2017. Monocyte pct 7.1 % [facility] Comment: Interpretive Data Percent cell count reference ranges are not reported, since discordance with absolute values may lead to misinterpretation of CBC data. Current Interpretive Data was last revised on 2017. Eosinophil pct 3.8 % [facility] Comment: Interpretive Data Percent cell count reference ranges are not reported, since discordance with absolute values may lead to misinterpretation of CBC data. Current Interpretive Data was last revised on 2017. Basophil pct 0.9 % [facility] Comment: Interpretive Data Percent cell count reference ranges are not reported, since discordance with absolute values may lead to misinterpretation of CBC data. Current Interpretive Data was last revised on 2017. Blood 03/23/2021 2:02 PM PREPARATORY TECHNICIAN 03/23/2021 2:05 PM PREPARATORY TECHNICIAN Abbi Ventura MD LAB BLOOD ORDERABLES Final Resul t Performing Organization Address City/[facility]/ZIP Co de Phone Number [facility] [place] [employer] [place] [address] * CEA (03/23/2021 2:02 PM PREPARATORY TECHNICIAN) CEA 1.5 <=5.0 ng/mL [facility] Comment: Interpretive Data: Reference Range: Non-Smokers: 0.0 ? 5.0 ng/mL Smokers: 0.0 ? 6.5 ng/mL Current interpretive data was last revised 2020. Blood 03/23/2021 2:02 PM PREPARATORY TECHNICIAN 03/23/2021 7:06 PM PREPARATORY TECHNICIAN Abbi Ventura MD LAB BLOOD ORDERABLES Final Resul t Performing Organization Address City/[facility]/ZIP Co de Phone Number [facility] Department [place] [address] * (ABNORMAL) CBC with auto differential (03/23/2021 2:02 PM PREPARATORY TECHNICIAN) [facility] WBC 9.9 3.8 - 9.9 K/cumm [facility] Hgb 11.7(L) 11.9 - 15.5 g/dL [facility] Hct 35.8 35.6 - 45.5 % [facility] Plt 178 150 - 400 K/cumm [facility] MPV 10.2 9.1 - 12.3 fL [facility] RBC 3.66(L) 3.90 - 5.20 M/cumm [facility] MCV 97.8(H) 81.3 - 96.4 fL [facility] MCH 32.0 27.1 - 33.3 pg [facility] MCHC 32.7 32.3 - 35.7 g/dL [facility] RDW CV 13.2 11.1 - 14.9 % [facility] RDW SD 47.7 35.7 - 48.1 fL [facility] NRBC abs 0.00 0.00 - 0.01 K/cumm [facility] Blood 03/23/2021 2:02 PM PREPARATORY TECHNICIAN 03/23/2021 2:05 PM PREPARATORY TECHNICIAN us Abbi Ventura MD LAB BLOOD ORDERABLES Final Resul t [facility] Department [place] [address] * (ABNORMAL) Comprehensive metabolic panel (03/23/2021 2:02 PM PREPARATORY TECHNICIAN) [facility] Sodium 142 135 - 145 mmol/L [facility] Potassium, pl 4.6 3.3 - 4.9 mmol/L [facility] Chloride 106 97 - 110 mmol/L [facility] CO2 27 22 - 32 mmol/L [facility] Anion gap 9 2 - 15 mmol/L [facility] BUN 32(H) 8 - 25 mg/dL [facility] Creatinine 1.98(H) 0.60 - 1.10 mg/dL [facility] Glucose 209(H) 70 - 199 mg/dL [facility] Comment: Interpretive Data Fasting glucose [...] Calcium 9.6 8.5 - 10.3 mg/dL [facility] Bilirubin, total 0.4 0.1 - 1.2 mg/dL [facility] Protein, pl 7.0 6.5 - 8.5 g/dL [facility] Albumin 4.2 3.5 - 5.0 g/dL [facility] Alk phos 94 40 - 130 Units/L [facility] ALT 14 7 - 45 Units/L [facility] AST 18 10 - 45 Units/L [facility] Blood 03/23/2021 2:02 PM PREPARATORY TECHNICIAN 03/23/2021 2:05 PM PREPARATORY TECHNICIAN us Abbi Ventura MD LAB BLOOD ORDERABLES Final Resul t [facility] Department [place] [address] documented in this encounter Visit Diagnoses Diagnosis Malignant neoplasm of upper-inner quadrant of left breast in female, 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) Malignant neoplasm of descending colon documented in this encounter Orders Appointment Requests Count Last Ordered Date Fi rst Ordered Date ONCBCN LAB APPOINTMENT 1 03/23/2021 documented in this encounter Care Teams Medical Billing Assistant Relationship Specialty Start Date End Date Ravi Smith MD PCP - General 11/04/17 09/27/21 Aft, Kianna Machado MD PhD [address] [place] [address] Surgeon Surgical Oncology 11/22/17 Santiago Gilbert MD [address] [place] [address] Display Screen Fabricator Gastroenterology 11/22/17 Dmitry Sanderson MD [address] [place] [address] Referring Physician Colon and Rectal Surgery 12/03/1805/06 Abbi Ventura MD [address] [place] [address] [address] [place] [address] Medical Oncologist/Agricultural Commodities Inspector Medical Oncology 12/03/18 Montse Thompson MD [address] [place] [address] [address] [place] [address] Consulting Physician Gynecologic Oncology 12/03/18 Lela Hardy MD PhD [address] [place] [address] [address] [place] [address] Radiation Oncologist Radiation Oncology 12/23/18 Aft, Kianna Machado MD PhD [address] [place] [address] [address] [place] [address] Surgeon Surgical Oncology 12/23/18 09/17/21 documented as of this encounter
--- OUTSIDE RECORDS SUMMARY | 2024-04-24 13:39 | XMS_ITS | Encounter Summary ---
Author Organization [facility] Address [address] [place] [address] Phone Care Team Providers Care Resin Mixer Name Role Phone Ravi Smith MD Primary Care Provider [phone] Aft, Kianna Machado MD PhD Unavailable [phone] Santiago Gilbert MD Unavailable [phone] Dmitry Sanderson MD Unavailable [phone] Abbi Ventura MD Unavailable Montse Thompson MD Unavailable [phone] Lela Hardy MD PhD Unavailable Aft, Kianna Machado MD PhD Unavailable [phone] Reason for Referral * MRI/CAT/PET Scan (Routine) - Closed Specialty Diagnoses / Procedures Referred By Contac t Referred To Contact Radiology Diagnoses Malignant neoplasm of upper-inner quadrant of left breast in female, estrogen receptor negative (HCC) Procedures MRI Abdomen Pelvis W WO Contrast Abbi Ventura MD [address] [facility] [address] [place] [address] Phone: tel: fax: [facility] Referral ID Status Reason Start Date Expiration Date Visits Re quested Visits Authorized [id number] Closed 03/28/2021 04/27/2022 1 1 Y FEED WORKER * MRI/CAT/PET Scan (Routine) - Closed Specialty Diagnoses / Procedures Referred By Contac t Referred To Contact Radiology Diagnoses Malignant neoplasm of upper-inner quadrant of left breast in female, estrogen receptor negative (HCC) Procedures CT Chest WO Contrast Abbi Ventura MD [address] [facility] [address] [place] [address] Phone: tel: fax: [facility] Referral ID Status Reason Start Date Expiration Date Visits Re quested Visits Authorized [id number] Closed 03/28/2021 04/27/2022 1 1 Y FEED WORKER Encounter Details Date Type Department Care Team (Late st Contact Info) Description 03/28/2021 Orders Only [facility] Oncology [address] [place] [address] Abbi Ventura MD [address] [place], [place] [id number] Malignant neoplasm of upper-inner quadrant of left [...] on file 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 DAIRY FEED WORKER Gender Identity Not on file Sexual Orientation Not on file documented as of this encounter Plan of Treatment Not on file documented as of this encounter Results * MRI Abdomen Pelvis W WO Contrast (04/25/2021 4:40 PM DAIRY FEED WORKER) Anatomical Region Laterality Modality Body N/A Magnetic Resonan ce 04/26/2021 9:42 AM DAIRY FEED WORKER Impressions 04/26/2021 12:28 PM DAIRY FEED WORKER 1. ??No imaging evidence of metastatic disease in the abdomen or pelvis. Dictated by: Cherise Mendoza M.D. The radiology attending physician has personally reviewed this study, and had reviewed and/or edited this written report and agrees with it. Electronically signed by: Jose Daniels M.D. Narrative 04/26/2021 12:28 PM DAIRY FEED WORKER EXAMINATION: 1. MAGNETIC RESONANCE IMAGING OF THE [...] by: Jose Daniels M.D. Abbi Ventura MD IM MRI PROCEDURES Final Result * CT Chest WO Contrast (04/25/2021 3:25 PM DAIRY FEED WORKER) Anatomical Region Laterality Modality Body N/A Computed Tomogra phy 04/25/2021 3:45 PM DAIRY FEED WORKER Impressions 04/25/2021 3:45 PM DAIRY FEED WORKER 1. No metastatic disease identified in the chest. Electronically signed by: Nicholas Olmos M.D. Narrative 04/25/2021 3:45 PM DAIRY FEED WORKER EXAMINATION: ??Computed tomography of the chest without [...] by: Nicholas Olmos M.D. Abbi Ventura MD IMG CT PROCEDURES [...] (HCC) documented in this encounter Care Teams Resin Mixer Relationship Specialty Start Date End Date Ravi Smith MD PCP - General 11/04/17 09/27/21 Aft, Kianna Machado MD PhD [address] [place] [address] Surgeon Surgical Oncology 11/22/17 Santiago Gilbert MD [address] [place] [address] Depositing Machine Operator Gastroenterology 11/22/17 Dmitry Sanderson MD [address] [place], [place] [id number] Referring Physician Colon and Rectal Surgery 12/03/1805/06 Abbi Ventura MD [address] [facility] [address] [place] [address] Medical Oncologist/Sales And Service Agent Medical Oncology 12/03/18 Montse Thompson MD [address] [facility] [address] [place], [place] [id number] Consulting Physician Gynecologic Oncology 12/03/18 Lela Hardy MD PhD [address] [facility] [address] [place] [address] Radiation Oncologist Radiation Oncology 12/23/18 Aft, Kianna Machado MD PhD [address] [facility] [address] [place], [place] [id number] Surgeon Surgical Oncology 12/23/18 09/17/21 documented as of this encounter
--- OUTSIDE RECORDS SUMMARY | 2024-04-24 13:39 | XMS_ITS | Encounter Summary ---
Author Organization [facility] Address [address] [place] [address] Phone Care Team Providers Care Hydro Generation Supervisor Name Role Phone Ravi Smith MD Primary Care Provider [phone] Aft, Kianna Machado MD PhD Unavailable [phone] Santiago Gilbert MD Unavailable [phone] Dmitry Sanderson MD Unavailable [phone] Abbi Ventura MD Unavailable Montse Thompson MD Unavailable [phone] Lela Hardy MD PhD Unavailable [phone] Aft, Kianna Machado MD PhD Unavailable [phone] Reason for Referral * MRI/CAT/PET Scan (Routine) - Closed Specialty Diagnoses / Procedures Referred By Contac t Referred To Contact Radiology Diagnoses Malignant neoplasm of upper-inner quadrant of left breast in female, 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) Procedures MRI Breast Bilateral W WO Contrast Abbi Ventura MD [address] [facility] [address] [place] [address] Phone: tel: fax: [facility] Referral ID Status Reason Start Date Expiration Date Visits Re quested Visits Authorized [id number] Closed 03/23/2021 04/22/2022 1 1 R SYSTEMS DESIGNER Encounter Details Date Type Department Care Team (Late st Contact Info) Description 03/23/2021 3:00 PM SOLAR SYSTEMS DESIGNER Office Visit [facility] Oncology [address] [place] [address] Abbi Ventura MD [address] [facility] [address] [place] [address] Malignant neoplasm of upper-inner quadrant of left [...] on file 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 SOLAR SYSTEMS DESIGNER Gender Identity Not on file Sexual Orientation Not on file documented as of this encounter Last Filed Vital Signs Vital Sign Reading Time Taken Comments Blood Pressure 127/77 03/23/2021 2:16 PM SOLAR SYSTEMS DESIGNER Pulse 110 03/23/2021 2:16 PM SOLAR SYSTEMS DESIGNER Temperature 36.5 ??C (97.7 ??F) 03/23/2021 2:16 PM CS T Respiratory Rate 16 03/23/2021 2:16 PM SOLAR SYSTEMS DESIGNER Oxygen Saturation 98% 03/23/2021 2:16 PM SOLAR SYSTEMS DESIGNER Inhaled Oxygen Concentration - - Weight 116.4 kg (256 lb 9.6 oz) 03/23/2021 2:16 PM SOLAR SYSTEMS DESIGNER Height - - Body Mass Index 37.89 03/21/2021 1:53 PM SOLAR SYSTEMS DESIGNER documented in this encounter Progress Notes * Ashlyn Burger NP - 03/23/2021 3:00 PM CST Images from the original note were not included. The Patient Identifying Data: Aleah Gerber is a 65 y.o. female seen in followup today DIAGNOSIS: 1. 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 AwayFind My risk showed no mutation in MLH [...] Adjuvant radiation therapy completed 02/04/2019. Interval History She reports some of her symptoms have improved since last being seen. She is no longer having headaches. Paraesthesias throughout her body continue but the gabapentin is helping provide relief to these. She has been having bouts of nausea for the last month but since she has started taking zofran again, this has improved. She is sleeping more, taking 4 hour naps during the day. She reports she has been feeling more down and thinks her depression may be contributing to her increased sleep. Additionally she has been having some mild low back pain and urinary frequency. Review of Systems Review of systems positive for symptoms as per interval history. All other review of systems negative. Objective Vitals: Vitals BP 127/77 Pulse 110 Temp 36.5 ??C (97.7 ??F) (Temporal) Resp 16 Wt 116.4 kg (256 lb 9.6 oz) LMP (LMP Unknown) SpO2 98% BMI 37.89 kg/m?? PERFORMANCE STATUS: ECOG 1 SKIN: Normal [...] all extremities. Detailed sensory exam not done. Extraocular movements are intact. LYMPH NODES: The patient has no palpable cervical, supraclavicular, submandibular adenopathy. BREAST: Right: No dominant masses. No nipple or areolar changes. Left: Status post partial mastectomy. No dominant masses. No nipple or areolar changes. She is very tender on left breast examination without evidence of engorgement, indention inner/lower at scarring. Skin changes r/t radiation Lab/Radiology/Diagnostic Review: Hematology Lab History Some values may be hidden. Unless noted otherwise, only the newest values recorded on each date aredisplayed. Labs - Hematology Latest Ref Range 04/26/20 09/29/20 03/23/21 WBC 3.8 - 9.9 K/cumm 9.9 7.5 9.9 Total Hb, POC 11.9 - 15.5 g/dL 12.3 12.2 11.7 (A) Hct 35.6 - 45.5 % 37.5 37.2 35.8 Plt 150 - 400 K/cumm 189 166 178 Neutrophil abs 1.7 - 6.5 K/cumm 6.7 (A) 5.0 6.7 (A) Lymphocytes, abs 0.8 - 3.3 K/cumm 1.6 1.5 1.9 (A) Abnormal value Lab Results Component Value Date SODIUM 142 03/23/2021 POTASSIUM 4.6 03/23/2021 CO2 27 03/23/2021 BUNSER 32 (H) 03/23/2021 GLUCOSE 209 (H) 03/23/2021 CREATININE 1.98 (H) 03/23/2021 CALCIUM 9.6 03/23/2021 CHLORIDE 106 03/23/2021 ALBUMIN 4.2 03/23/2021 AST 18 03/23/2021 ALT 14 03/23/2021 ALKPHOS 94 03/23/2021 BILITOT 0.4 03/23/2021 PROT 7.0 03/23/2021 ANIONGAP 9 03/23/2021 Tumor Marker History Some values may be hidden. Unless noted otherwise, only the newest values recorded on each date aredisplayed. Tumor Markers Latest Ref Range 04/26/20 509/29/20 10/14/20 CEA <=5.0 ng/mL 1.8 2.1 CA 125 ag 0.0 - 35.0 units/mL 7.9 Protein, sr 6.2 - 8.2 g/dL 7.0 [...] some flowsheets but are not being displayed. Recent labs, radiology and pathology reviewed in EPIC ASSESSMENT: T4bN0 disease, Stage IIC colon adenocarcinoma and T2N0, Stage IIA triple negative left breast cancer: clinically without evidence of recurrence today Complaints of pain in multiple bones and body areas -work up with rheumatology was negative MyRisk panel is positive for BRCA2 mutation, and VUS in BRIP1 and NBN: Status post bilateral oophorectomy. 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 Paresthesias have improved by increasing gabapentin to BID,she would like to maintain this dosing. Elevated creatinine. Will rule out possible infection today with UA and give IVFs. PLAN: Schedule Breast MRI and CT CAP for April 2021 Mammogram due 10/2021, closely monitoring with mammogram and breast MRI due to BRAC2 mutation 1 L NS today, repeat BMP post IVFs for elevated creatinine Obtain urine micro/ reflex RTC in 6 months if scans are clear, if scans show new disease we will see her sooner. Aleah Gerber will follow up as directed above, she was encouraged to call in the interim with questions or concerns. Ashlyn Burger, MSN, AGNP Nurse Practitioner, Medical Oncology R SYSTEMS DESIGNER documented in this encounter Plan of Treatment Not on file documented as of this encounter Results * (ABNORMAL) Comprehensive metabolic panel (09/21/2021 1:55 PM CDT) Sodium 139 135 - 145 mmol/L [facility] Comment:Testing performed by : [facility], [address] [place] [address] Potassium, pl 4.0 3.3 - 4.9 mmol/L [facility] Chloride 107 97 - 110 mmol/L [facility] CO2 23 22 - 32 mmol/L [facility] Anion gap 9 2 - 15 mmol/L [facility] BUN 20 8 - 25 mg/dL [facility] Creatinine 1.51(H) 0.60 - 1.10 mg/dL [facility] Glucose 121 70 - 199 mg/dL [facility] Comment: Interpretive Data Fasting glucose >/= [...] 2017. Calcium 9.6 8.5 - 10.3 mg/dL [facility] Bilirubin, total 0.4 0.1 - 1.2 mg/dL [facility] Protein, pl 7.0 6.5 - 8.5 g/dL [facility] Albumin 4.4 3.5 - 5.0 g/dL [facility] Alk phos 111 40 - 130 Units/L [facility] ALT 13 7 - 45 Units/L [facility] AST 22 10 - 45 Units/L [facility] Blood 09/21/2021 1:55 PM CDT 09/21/2021 1:57 PM CDT Abbi Ventura MD LAB BLOOD ORDERABLES Final Resul t Performing Organization Address City/State/[facility] Co de Phone Number [facility] Department [place] [address] * CEA (09/21/2021 1:55 PM CDT) CEA 1.8 <=5.0 ng/mL [facility] Comment: Interpretive Data: Reference Range: Non-Smokers: 0.0 ? 5.0 ng/mL Smokers: 0.0 ? 6.5 ng/mL The Bo CEA assay procedure was used. Results from different manufacturers or methods may not be comparable. Serial testing should be performed using the same method. Current interpretive data was last revised 2021. Blood 09/21/2021 1:55 PM CDT 09/21/2021 3:28 PM CDT us Abbi Ventura MD LAB BLOOD ORDERABLES Final Resul t Performing Organization Address City/State/[facility] Co de Phone Number [facility] Department [place] [address] * (ABNORMAL) CBC with auto differential (09/21/2021 1:55 PM CDT) WBC 7.3 3.8 - 9.9 K/cumm [facility] Comment:Testing performed by : [address] [address] Hgb 12.0 11.9 - 15.5 g/dL [facility] Comment:Testing performed by : [address] [address] Hct 37.4 35.6 - 45.5 % [facility] Comment:Testing performed by : [address] [address] Plt 200 150 - 400 K/cumm [facility] Comment:Testing performed by : [address] [address] MPV 9.7 9.1 - 12.3 fL [facility] RBC 3.97 3.90 - 5.20 M/cumm [facility] MCV 94.2 81.3 - 96.4 fL [facility] MCH 30.2 27.1 - 33.3 pg [facility] MCHC 32.1(L) 32.3 - 35.7 g/dL [facility] RDW CV 13.2 11.1 - 14.9 % [facility] RDW SD 45.3 35.7 - 48.1 fL [facility] NRBC abs 0.00 0.00 - 0.01 K/cumm [facility] Blood 09/21/2021 1:55 PM CDT 09/21/2021 1:57 PM CDT Abbi Ventura MD LAB BLOOD ORDERABLES Final Resul t Performing Organization Address [facility] Co de Phone Number [facility] Department [place] [address] * MRI Breast Bilateral W WO Contrast (05/15/2021 4:27 PM SOLAR SYSTEMS DESIGNER) Anatomical Region Laterality Modality Breast Bilateral Magnetic Resonan ce 05/16/2021 9:43 AM SOLAR SYSTEMS DESIGNER Impressions 05/16/2021 9:43 AM SOLAR SYSTEMS DESIGNER No MR evidence of malignancy. Continued annual surveillance with breast MRI and bilateral mammography recommended. OVERALL FINAL ASSESSMENT: BI-RADS Category 1: Negative. Electronically signed by: Bety Mendoza M.D. Narrative 05/16/2021 9:43 AM SOLAR SYSTEMS DESIGNER EXAMINATION: 1. MRI EXAMINATION OF THE BREASTS [...] Negative. Electronically signed by: Bety Mendoza M.D. us Abbi Ventura MD IMG MRI PROCEDURES Final Result * Urinalysis reflex to microscopic and culture Urine (03/23/2021 4:52 PM SOLAR SYSTEMS DESIGNER) Color, ur Straw Yellow [facility] Clarity, ur Clear Clear [facility] Specific gravity, ur 1.021 1.003 - 1.030 [facility] pH, urine 6 [facility] Protein, ur ql Negative Negative [facility] Glucose, ur ql Negative Negative [facility] Ketones, ur Negative Negative [facility] Bilirubin, ur Negative Negative [facility] Blood, ur Negative Negative [facility] Urobilinogen, ur <2.0 <2.0 mg/dL [facility] Nitrite, ur Negative Negative [facility] Leukocyte esterase, ur Negative Negative [facility] UA reflex comment Reflex conditions for microscopic UA and culture not met. [facility] Urine 03/23/2021 4:52 PM SOLAR SYSTEMS DESIGNER 03/23/2021 7:07 PM SOLAR SYSTEMS DESIGNER Narrative [facility] - 03/23/2021 7:25 PM SOLAR SYSTEMS DESIGNER ?? Urine pH is affected by diet, medications, systemic acid-base disturbances, and renal tubular function. ??pH may affect urinary stone formation. ??For example, urine pH below 6.0 may help reduce the tendency for calcium phosphate stones and pH greater than 6.0 may reduce the tendency for uric acid stone formation. Source: [employer]. Last revised 05-16-2017 us Abbi Ventura MD LAB MICROBIOLOGY - GENERAL ORDER YFN Final Result [facility] Department [place] [address] * (ABNORMAL) Basic metabolic panel (03/23/2021 4:43 PM SOLAR SYSTEMS DESIGNER) Sodium 142 135 - 145 mmol/L [facility] Potassium, pl 4.3 3.3 - 4.9 mmol/L [facility] Chloride 109 97 - 110 mmol/L [facility] CO2 27 22 - 32 mmol/L [facility] Anion gap 6 2 - 15 mmol/L [facility] BUN 32(H) 8 - 25 mg/dL [facility] Creatinine 1.91(H) 0.60 - 1.10 mg/dL [facility] Glucose 152 70 - 199 mg/dL [facility] Comment: Interpretive Data Fasting glucose >/= [...] 2017. Calcium 8.8 8.5 - 10.3 mg/dL [facility] Blood 03/23/2021 4:43 PM SOLAR SYSTEMS DESIGNER 03/23/2021 4:43 PM SOLAR SYSTEMS DESIGNER Narrative [facility] - 03/23/2021 5:05 PM SOLAR SYSTEMS DESIGNER Recheck BMP after fluids us Abbi Ventura MD LAB BLOOD ORDERABLES Final Resul t [facility] Department [place] [address] documented in this encounter Visit Diagnoses Diagnosis [...] Date ONCBCN CLINIC APPOINTMENT REQUEST 2 022 03/23/2021 ON[facility]N LAB APPOINTMENT 1 09/21/2021 INFUSION APPT REQUEST 60 MIN 1 03/23/2021 documented in this encounter Care Teams Hydro Generation Supervisor Relationship Specialty Start Date End Date Ravi Smith MD PCP - General 11/04/17 09/27/21 Aft, Kianna Machado MD PhD [address] [place] [address] Surgeon Surgical Oncology 11/22/17 Santiago Gilbert MD [address] [place] [address] Business Administration Instructor Gastroenterology 11/22/17 Dmitry Sanderson MD [address] [place] [address] Referring Physician Colon and Rectal Surgery 12/03/1805/06 Abbi Ventura MD [facility] [place] [address] Medical Oncologist/Equipment Application Specialist Medical Oncology 12/03/18 Montse Thompson MD [address] [place] [address] Consulting Physician Gynecologic Oncology 12/03/18 Lela Hardy MD PhD [address] [place] [address] Radiation Oncologist Radiation Oncology 12/23/18 Aft, Kianna Machado MD PhD [address] [facility] [address] [place] [address] Surgeon Surgical Oncology 12/23/18 09/17/21 documented as of this encounter
--- OUTSIDE RECORDS SUMMARY | 2024-04-24 13:39 | XMS_ITS | Encounter Summary ---
Author Organization [facility] Address [address] [place] [address] Phone Care Team Providers Care Hand Sample Maker Name Role Phone Ravi Smith MD Primary Care Provider [phone] Aft, Kianna Machado MD PhD Unavailable [phone] Santiago Gilbert MD Unavailable [phone] Dmitry Sanderson MD Unavailable [phone] Abbi Ventura MD Unavailable Montse Thompson MD Unavailable [phone] Lela Hardy MD PhD Unavailable [phone] Aft, Kianna Machado MD PhD Unavailable [phone] Encounter Details Date Type Department Care Team (Late st Contact Info) Description 03/24/2021 Telephone [facility] Oncology [address] [place] [phone] Uriel Corral Social History Tobacco Use Types [...] on file 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 ENGRAVING SUPERVISOR Gender Identity Not on file Sexual Orientation Not on file documented as of this encounter Miscellaneous Notes * Telephone Encounter - Uriel Corral - 03/24/2021 10:28 AM CST ----- Message from Rhoda Jo sent at 03/23/2021 3:27 PM ENGRAVING SUPERVISOR ----- How was BMP on after fluids, 03/2303/24/21: BMP with Cr 1.91 post IVFS. Per Deepa Burger NP, patient should push oral fluids over the weekend and return on Tuesday 03/27 to recheck BMP and IVFS with post BMP also. Patient called with lab results from yesterday and updated plan of care, with which she agrees to. Patient verbalizes understanding of appointment dates/times and denies any questions/concerns at this time. Uriel Corral RN AVING SUPERVISOR AVING SUPERVISOR documented in this encounter Plan of Treatment Not on file documented as of this encounter Visit Diagnoses Not on filedocumented in this encounter Care Teams Hand Sample Maker Relationship Specialty Start Date End Date Ravi Smith MD PCP - General 11/04/17 09/27/21 Aft, Kianna Machado MD PhD [address] [place] [address] Surgeon Surgical Oncology 11/22/17 Santiago Gilbert MD [address] [place] [address] Math Interventionist Gastroenterology 11/22/17 Dmitry Sanderson MD [address] [place] [address] Referring Physician Colon and Rectal Surgery 12/03/1805/06 Abbi Ventura MD [address] [place] [address] [address] [place] [address] Medical Oncologist/Viscose Cellar Charge Hand Medical Oncology 12/03/18 Montse Thompson MD [address] [facility] [address] [place] [address] Consulting Physician Gynecologic Oncology 12/03/18 Lela Hardy MD PhD [address] [place] [address] [address] [place] [address] Radiation Oncologist Radiation Oncology 12/23/18 Aft, Kianna Machado MD PhD [address] [place] [address] [address] [place] [address] Surgeon Surgical Oncology 12/23/18 09/17/21 documented as of this encounter
--- OUTSIDE RECORDS SUMMARY | 2024-04-24 13:39 | XMS_ITS | Encounter Summary ---
Author Organization [facility] Address [address] [place] [address] Phone Care Team Providers Care Cyber Software Engineer Name Role Phone Ravi Smith MD Primary Care Provider [phone] Aft, Kianna Machado MD PhD Unavailable [phone] Santiago Gilbert MD Unavailable [phone] Dmitry Sanderson MD Unavailable [phone] Abbi Ventura MD Unavailable Montse Thompson MD Unavailable [phone] Lela Hardy MD PhD Unavailable [phone] Aft, Kianna Machado MD PhD Unavailable [phone] Encounter Details Date Type Department Care Team (Late st Contact Info) Description 03/28/[address] [address] Uriel Corral Social History Tobacco Use Types [...] on file 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 MAINTENANCE EQUIPMENT OPERATOR Gender Identity Not on file Sexual Orientation Not on file documented as of this encounter Miscellaneous Notes * Telephone Encounter - Uriel Corral - 03/28/2021 9:02 AM CST Patient called with Cr results drawn yesterday of 1.7 prior to IVFS, patient states post BMP was not drawn. Per Dr. Ventura, patient should have CT CAP changed to CT Chest without contrast with MRI Abdomen/Pelvis with contrast, and that PCP office should evaluate patient further for elevated Cr. Patient verbalizes understanding and agrees to plan. She was given updated date and times of CT scan and MRI. She currently denies any questions/concerns and agrees to call in the interim should any arise. Uriel Corral RN TENANCE EQUIPMENT OPERATOR documented in this encounter Plan of Treatment Not on file documented as of this encounter Visit Diagnoses Not on filedocumented in this encounter Care Teams Cyber Software Engineer Relationship Specialty Start Date End Date Ravi Smith MD PCP - General 11/04/17 09/27/21 Aft, Kianna Machado MD PhD [address] [place] [address] Surgeon Surgical Oncology 11/22/17 Santiago Gilbert MD [address] [place] [address] Jinriksha Driver Gastroenterology 11/22/17 Dmitry Sanderson MD [address] [place] [address] Referring Physician Colon and Rectal Surgery 12/03/1805/06 Abbi Ventura MD [address] [place] [address] [address] [place] [address] Medical Oncologist/Rat Trapper Medical Oncology 12/03/18 Montse Thompson MD [address] [place] [address] [address] [place] [address] Consulting Physician Gynecologic Oncology 12/03/18 Lela Hardy MD PhD [address] [place] [address] [address] [place] [address] Radiation Oncologist Radiation Oncology 12/23/18 Aft, Kianna Machado MD PhD [address] [place] [address] [address] [place] [address] Surgeon Surgical Oncology 12/23/18 09/17/21 documented as of this encounter
--- OUTSIDE RECORDS SUMMARY | 2024-04-24 13:39 | XMS_ITS | Encounter Summary ---
Author Organization [facility] Address [address] [place] [address] Care Team Providers Care Collar Shaper Operator Name Role Phone Ravi Smith MD Primary Care Provider [phone] Aft, Kianna Machado MD PhD Unavailable [phone] Santiago Gilbert MD Unavailable [phone] Dmitry Sanderson MD Unavailable [phone] Abbi Ventura MD Unavailable Montse Thompson MD Unavailable Lela Hardy MD PhD Unavailable [phone] Aft, Kianna Machado MD PhD Unavailable [phone] Encounter Details Date Type Department Care Team (Late st Contact Info) Description 04/13/2021 Telephone [facility] [address] [facility] 1st [place] [address] Aracelis Crisostomo Social History Tobacco Use Types [...] on file 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 PEDIATRICIAN Gender Identity Not on file Sexual Orientation Not on file documented as of this encounter Miscellaneous Notes * Telephone Encounter - Aracelis Crisostomo - 04/13/2021 3:32 PM CST Provided patient with referrals to community providers for timely psychological care. Patient request referral information and group information be emailed. 04/13/21 ATRICIAN documented in this encounter Plan of Treatment Not on file documented as of this encounter Visit Diagnoses Not on filedocumented in this encounter Care Teams Collar Shaper Operator Relationship Specialty Start Date End Date Ravi Smith MD PCP - General 11/04/17 09/27/21 Aft, Kianna Machado MD PhD [address] [place] [address] Surgeon Surgical Oncology 11/22/17 Santiago Gilbert MD [address] [place] [address] Bullet Lubricating Machine Operator Gastroenterology 11/22/17 Dmitry Sanderson MD [address] [place] [address] Referring Physician Colon and Rectal Surgery 12/03/1805/06 Abbi Ventura MD [address] [facility] [address] [place] [address] Medical Oncologist/Production Team Advisor Medical Oncology 12/03/18 Montse Thompson MD [address] [facility] [address] [place] [address] Consulting Physician Gynecologic Oncology 12/03/18 Lela Hardy MD PhD [address] [facility] [address] [place] [address] Radiation Oncologist Radiation Oncology 12/23/18 Aft, Kianna Machado MD PhD [address] [facility] [address] [place] [address] Surgeon Surgical Oncology 12/23/18 09/17/21 documented as of this encounter
--- OUTSIDE RECORDS SUMMARY | 2024-04-24 13:39 | XMS_ITS | Encounter Summary ---
Author Organization [facility] Address [address] [place] [address] Phone Care Team Providers Care K9 Handler Name Role Phone Ravi Smith MD Primary Care Provider [phone] Aft, Kianna Machado MD PhD Unavailable [phone] Santiago Gilbert MD Unavailable [phone] Dmitry Sanderson MD Unavailable [phone] Abbi Ventura MD Unavailable Montse Thompson MD Unavailable [phone] Lela Hardy MD PhD Unavailable [phone] Aft, Kianna Machado MD PhD Unavailable [phone] Reason for Referral * Consultation (Routine) - Closed Specialty Diagnoses / Procedures Referred By Contac t Referred To Contact Diabetes and Nutrition Services Diagnoses Type 2 diabetes mellitus with other kidney complication, unspecified whether terminal superintendent insulin use (HCC) Sylvia Ybarra MD [address] [place] [address] Phone: tel: fax: [facility] Endocrinology Metabolism and Lipid [address] [facility] Advanced Medicine 13th [place] [address] [place] [address] Phone: tel: fax: Referral ID Status Reason Start Date Expiration Date V isits Requested Visits Authorized [id number] Closed Specialty Services Required 12/09/2020 01/08/2022 10 10 Question Answer [id number] No Service requested Diabetes Self-Management Education/Therapy (DSMT) + Medical Nutrition Therapy (MNT) [id number] Initial / Annual Follow-up MNT Please select the performing region: [facility] (All Locations) [[id number]] Please select the performing department: [facility] 13B [[id number]] # of visits: 10 Reason for Visit * Reason Comments Diabetic Education Diabetes Type 2 * Consultation (Routine) - Closed Specialty Diagnoses / Procedures Referred By Vijaya t Referred To Contact Diabetes [facility] Nutrition Services Diagnoses Type 2 diabetes mellitus with other kidney complication, unspecified whether terminal superintendent insulin use (HCC) Sylvia Ybarra MD [address] [facility] [address] [place] [address] Phone: tel: fax: [facility] Endocrinology Metabolism and Lipid [address] [facility] Medicine 13th [place] [address] [place] [address] Phone: tel: fax: Referral ID Status Reason Start Date Expiration Date V isits Requested Visits Authorized [id number] Closed Specialty Services Required 12/09/2020 01/08/2022 10 10 Encounter Details Date Type Department Care Team (Latest Contact Info) Description 12/09/2020 2:30 PM CDT Clinical Support [facility] Endocrinology Metabolism and Lipid [address] [facility] Medicine 13th [place] [address] [place] [address] Ya Pollard RN Type 2 diabetes mellitus with other kidney complication, unspecified whether terminal superintendent insulin use (HCC) (Primary Dx) Social History [...] on file 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 Aleah Gerber is a 65 y.o. female : 1955 Start Time: 1440 End Time: 1530 Total Minutes: 50 min Aleah was here for an initial visit regarding her Type 2 diabetes.. Additional History: COPD, breast Cancer, Anxiety, Depression, Diabetic Neuropathy, Hyperlipidemia, Hypertension and Obesity Cognitive Assessment: Functional Health Literacy: Proficient and Numeracy: Proficient Diabetes Support System/Distress: Feeling overwhelmed with a lot of stressors in her life She has a visit with Dr Ybarra today as well. Her visit today is for initial diabetes education. Current Outpatient Medications Medication ??? ALPRAZolam (XANAX) 0.25 mg tablet ??? atorvastatin (LIPITOR) 20 mg tablet ??? Bydureon BCise 2 mg/0.85 mL auto-injector ??? DULoxetine DR (CYMBALTA) 60 mg capsule ??? fluticasone propion-salmeteroL (ADVAIR DISKUS) 500-50 mcg/dose diskus inhaler ??? gabapentin (NEURONTIN) 300 mg capsule ??? hydroCHLOROthiazide (HYDRODIURIL) 12.5 mg tablet ??? propranolol LA (INDERAL LA) 60 mg 24 hr capsule ??? Rybelsus 14 mg tablet No current facility-administered medications for this visit. Current Diabetes Meds/Insulin Regimen is: Injectables Diabetes Meds: Bcise once weekly She was taking janumet and trulicity but insurance would not cover anymore - she cannot tolerate metformin alone due to GI SE Lab Results Component Value Date CREATININE 1.45 (H) 09/29/2020 BUNSER 23 09/29/2020 SODIUM 140 09/29/2020 POTASSIUM 4.0 09/29/2020 CO2 29 09/29/2020 Lab Results Component Value Date MICROALBUR 23.5 (H) 10/14/2020 Lab Results Component Value Date HGBA1C 6.9 12/09/2020 No results found for: CHOL, POCCHOL No results found for: HDL, POCHDL No results found for: LDLCALC, CLDL, HIRISKLDL, LDL, LDLC, LDLDIRECT, LDLMED, POCLDL, SCRLDL, SMALLLDLP, TOTLDLC No results found for: TRIG, POCTRIG Wt Readings from Last 3 Encounters: 12/09/20 113.4 kg (250 lb) 11/14/20 112.9 kg (249 lb) 10/25/20 113.5 kg (250 lb 3.2 oz) Exercise/Activity Exercise/Activity: none Areas of Concern Problems with B-cise bleeding and leaking around injection site The above areas of concern were discussed with Aleah Since her covid vaccine, she has had an increase in pain and numbness elaine in her left arn. [facility]. Blood sugars are well controlled and it is not likely related to diabetes. I reviewed technique using the B-cise pen and she is doing it correctly. I discussed victoza or ozempic and instructed her to look into coverage for one of these as she might have less problems with leaking and bleeding at injection site. She has significant stress in her life and we discussed importance of managing stress, weight loss and exercise when able - she broke her ankle so she has not been able to exercise. I encouraged counseling but she does not think that will be helpful. At this time, she does not think she will return to the [facility] but will continue to have her PMD manage her DM Diabetes Self-Management Support Plan: Aleah has chosen to utilize the following methods of ongoing support to help her manage her diabetes long-term: Not discussed at this visit Current Plan: Check with insurance about coverage victoza or ozempic Work on increasing activity when able She has my contact info for future reference. Ya Pollard RN Diabetes Education and Nutritional Counseling documented in this encounter Plan of Treatment Scheduled Referrals Name Type Priority Associated Diagnoses Orde r Schedule Ambulatory referral to Diabetic Education & Nutrition Services Outpatient Referral Routine Type 2 diabetes mellitus with other kidney complication, unspecified whether alf insulin use (CMS/HCC) Expected: 12/09/2020 (Approximate), Expires: 05/05/2021 documented as of this encounter Visit Diagnoses Diagnosis Type 2 diabetes mellitus with other kidney complication, unspecified whether terminal superintendent insulin use (HCC)- Primary documented in this encounter Care Teams K9 Handler Relationship Specialty Start Date End Date Ravi Smith MD PCP - General 11/04/17 09/27/21 Aft, Kianna Machado MD PhD [address] [place] [address] Surgeon Surgical Oncology 11/22/17 Santiago Gilbert MD [address] [place] [address] Insolvency Consultant Gastroenterology 11/22/17 Dmitry Sanderson MD [address] [place] [address] Referring Physician Colon and Rectal Surgery 12/03/1805/06 Abbi Ventura MD [address] [place] [address] Medical Oncologist/Chocolate Finisher Operator Medical Oncology 12/03/18 Montse Thompson [facility] [place] [address] Consulting Physician Gynecologic Oncology 12/03/18 Lela Hardy MD PhD [address] [place] [address] Radiation Oncologist Radiation Oncology 12/23/18 Aft, Kianna Machado MD PhD [address] [facility] [address] [place], [place] [id number] Surgeon Surgical Oncology 12/23/18 09/17/21 documented as of this encounter
--- OUTSIDE RECORDS SUMMARY | 2024-04-24 13:39 | XMS_ITS | Encounter Summary ---
Author Organization [facility] Address [address] [place] [address] Phone Care Team Providers Care Tire Repairman Name Role Phone Ravi Smith MD Primary Care Provider [phone] Aft, Kianna Machado MD PhD Unavailable [phone] Santiago Gilbert MD Unavailable [phone] Dmitry Sanderson MD Unavailable [phone] Abbi Ventura MD Unavailable Montse Thompson MD Unavailable [phone] Lela Hardy MD PhD Unavailable [phone] Aft, Kianna Machado MD PhD Unavailable [phone] Encounter Details Date Type Department Care Team (Late st Contact Info) Description 03/22/2021 Telephone [facility] Pulmonary [address] [facility] 8th [place] [address] [place] [id number] Leroy Cuellar RMA Social History Tobacco Use [...] on file 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 Dong. Thanks, Jovita ----- Message ----- From: Leroy Cuellar LUPILLO Sent: 03/21/2021 2:47 PM MENTAL HEALTH AIDES TEACHER To: Adelina Morton RN Subject: follow up Jovita, September I have a [address] Dong? Thanks, Julien'louise AL HEALTH AIDES TEACHER documented in this encounter Plan of Treatment Not on file documented as of this encounter Visit Diagnoses Not on filedocumented in this encounter Care Teams Tire Repairman Relationship Specialty Start Date End Date Ravi Smith MD PCP - General 11/04/17 09/27/21 Aft, Kianna Machado MD PhD [address] [place] [address] Surgeon Surgical Oncology 11/22/17 Santiago Gilbert MD [address] [place] [address] Belt And Link Shop Supervisor Gastroenterology 11/22/17 Dmitry Sanderson MD [address] [place], [place] [id number] Referring Physician Colon and Rectal Surgery 12/03/1805/06 Abbi Ventura MD [address] [facility] [address] [place], [place] [id number] Medical Oncologist/Harbor Pilot Medical Oncology 12/03/18 Montse Thompson MD [address] [facility] [address] [place], [place] [id number] Consulting Physician Gynecologic Oncology 12/03/18 Lela Hardy MD PhD [address] [facility] [address] [place] [address] Radiation Oncologist Radiation Oncology 12/23/18 Aft, Kianna Machado MD PhD [address] [facility] [address] [place], [place] [id number] Surgeon Surgical Oncology 12/23/18 09/17/21 documented as of this encounter
--- OUTSIDE RECORDS SUMMARY | 2024-04-24 13:39 | XMS_ITS | Encounter Summary ---
Author Organization [facility] Address [address] [facility] [address] [place] [address] Care Team Providers Care Therapist Speech Name Role Phone Ravi Smith MD Primary Care Provider [phone] Aft, Kianna Machado MD PhD Unavailable [phone] Santiago Gilbert MD Unavailable [phone] Dmitry Sanderson MD Unavailable [phone] Abbi Ventura MD Unavailable Montse Thompson MD Unavailable [phone] Lela Hardy MD PhD Unavailable [phone] Aft, Kianna Machado MD PhD Unavailable [phone] Reason for Referral * Neurology (Routine) - Closed Specialty Diagnoses / Procedures Referred By Contac t Referred To Contact Diagnoses Neuropathy ([facility]) Procedures EMG/NCV -Please select the performing region: [facility] (All Locations); Procedure performed at: [facility] EMG Lab; Clinical Summary: generalized paresthesias and dysesthesias, previous chemo; Reason for referral or diagnostic question: ?... Hiwot Walters NP Phone: tel: fax: [facility] (All Locations) Referral ID Status Reason Start Date Expiration Date Visits Re quested Visits Authorized [id number] Closed 10/25/2020 11/24/2021 1 1 Reason for Visit * Reason Comments New Patient Neuropathy full body- head to t oe * Consultation (Routine) - Closed Specialty Diagnoses / Procedures Referred By Vijaya t Referred To Contact Neurology Diagnoses Neuropathy (CMS/HCC) Abbi Ventura MD [address] [place] [address] Phone: tel: fax: [facility] Medical [facility] Neurology [address] [place] [address] [place] [phone] Phone: tel: fax: Referral ID Status Reason Start Date Expiration Date V isits Requested Visits Authorized [id number] Closed Specialty Services Required 10/07/2020 11/06/2021 1 1 Encounter Details Date Type Department Care Team (Late st Contact Info) Description 10/25/2020 1:00 PM CDT Office Visit [facility] Neurology [address] [place] [phone] [address] NP 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 Gender Identity Not on file Sexual Orientation Not on file documented as of this encounter Last Filed Vital Signs Vital Sign Reading Time Taken Comments Blood Pressure 136/70 10/25/2020 1:16 PM CDT Pulse 81 10/25/2020 1:16 PM CDT Temperature 36.5 ??C (97.7 ??F) 10/25/2020 1:16 PM CD T Respiratory Rate - - Oxygen Saturation - - Inhaled Oxygen Concentration - - Weight 113.5 kg (250 lb 3.2 oz) 10/25/2020 1:16 PM CDT Height 175.3 cm (5' 9 ) 10/25/2020 1:16 PM CDT Body Mass Index 36.95 10/25/2020 1:16 PM CDT documented in this encounter Progress Notes * Hiwot Walters NP - 10/25/2020 1:00 PM CDT Images from the original note were not included. Patient ID: Aleah Gerber is a 65 y.o. female Aleah Gerber is being seen as a new consult at the request of Ravi Smith MD For Neuropathy Assessments and Plan 1. Neuropathy Aleah has had increasing neuropathic symptoms over the past few months. She also has history of diabetes as well as chemotherapy. Clinical suspicion that she has a generalized poly peripheral neuropathy possibly drug-induced. Plan: -obtain nerve conduction testing/EMG of bilateral lower extremities and left upper extremity for further clarification -continue with Cymbalta and gabapentin per primary care provider -will follow along with Rheumatology workup and evaluation -follow-up with patient 6 months -Case was discussed with Dr. Alverto Iglesias who agrees with the above assessment and plan of care. -[id number] time spent with patient was approximately 35 minutes, an additional 15 minutes was use reviewing previous medical testing and records. History of Present Illness: Onset: July 2020 Description: Numbness, tingling, sharp stabbing pains Medication: Gabapentin 300 mg 3 times a day and Cymbalta 60 mg once daily Narrative: Aleah is a 65-year-old female who comes in for evaluation of neuropathy. She reports her symptoms started 7-10 days after getting her COVID vaccine. She reports that she has been suffering from pinpoint pin pricking sensation throughout her body, bilateral extremities, upper and lower extremities as well as trunk and neck. She has a numbness and tingling in her right ring finger when driving. Shecomplains of having sensitivity in her toes, top of left foot is numb and she experiences numbness and tingling throughout bilateral upper and lower extremities. She has been on gabapentin since July, she reports no in initial improvement but since then there has been some improvement. She has been on Cymbalta for approximately 1 year now. She reports havinghistory of uncontrolled diabetes, diagnosed in 2019. 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 She did have chemotherapy with oxaliplatin for which she had a reaction to. She most recently was seen by Rheumatology for possible connective tissue disease. She was previously seen by [facility] neuromuscular Clinic and diagnosed with drug-induced polyneuropathy. She was not having any numbness, tingling or burning pain. She had nerve conduction testing done which had shown no evidence for large fiber peripheral neuropathy. There was reduction activation seen on EMG of the right medial gastrocnemius and 4th dorsal interossei pedis. MRI of C-spine and T-spine were obtained to rule out any central nervous system etiology, there are no signs of metastatic disease, and mild changes without significant spinal canal stenosis or neuroforaminal stenosis. Past Medical History: Diagnosis Date ??? Anemia ??? Anxiety ??? Asthma ??? At risk for sleep apnea Per assessment, STOP BANG=3. Pt reports her PCP wants to do a Sleep Study in the near future. ??? BRCA2 positive ??? Breast cancer (CMS/HCC) 2017 left breast cancer ??? Breast cancer (CMS/HCC) 2017 ??? 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 Colon cancer (CMS/HCC) 2017 ??? Colon polyps ??? COPD (chronic obstructive pulmonary disease) (CMS/HCC) ??? Depression ??? DVT (deep vein thrombosis) in 05/2017 with multiple Pulmonary Emboli ??? DVT (deep venous thrombosis) (CMS/HCC) 05/2018 RLE DVT ??? Former smoker Quit 2015 ??? History of chemotherapy ??? History of [...] of breath) ??? SOB (shortness of breath) 2019 2/2 chemotherapy ??? TIA (transient ischemic attack) 2007 ??? Type 2 diabetes mellitus (CMS/HCC) ??? Vascular disease Family History Problem Relation Age of Onset [...] Problems Brother ??? Anesthesia problems Neg Hx Social History Socioeconomic History ??? Marital status: Spouse name: Not on file ??? Number of children: Not on file ??? Years of education: Not on file ??? Highest education level: Not on file Occupational History ??? Not on file Tobacco Use ??? Smoking status: Former Smoker Packs/day: 1.00 Types: Cigarettes Start date: 1972 Quit date: 2015 Years since quittin.4 ??? Smokeless tobacco: Never Used Vaping Use ??? Vaping Use: Never used Substance and Sexual Activity ??? Alcohol use: Not Currently Comment: socially ??? Drug use: Never ??? Sexual activity: Defer Other Topics Concern ??? Not on file Social History Narrative ??? Not on file Social Determinants of Health Financial Resource Strain: ??? Difficulty of Paying Living Expenses: Food Insecurity: ??? Worried About Running Out of Food in the Last Year: ??? Ran Out of Food in the Last Year: Transportation Needs: ??? Lack of Transportation (Medical): ??? Lack of Transportation (Non-Medical): Physical Activity: ??? Days of Exercise per Week: ??? Minutes of Exercise per Session: Stress: ??? Feeling of Stress : Social Connections: ??? Frequency of Communication with Friends and Family: ??? Frequency of Social Gatherings with Friends and Family: ??? Attends [employer] Services: ??? Active Member of Clubs or Organizations: ??? Attends Club or Organization Meetings: ??? Marital Status: Intimate Partner Violence: ??? Fear of Current or Ex-Partner: ??? Emotionally Abused: ??? Physically Abused: ??? Sexually Abused: Review of Systems Review of Systems Constitutional: Positive for fatigue and unexpected weight change. Negative for appetite change andfever. HENT: Positive for tinnitus. Negative for drooling, ear discharge, ear pain, facial swelling, hearing loss, mouth sores, nosebleeds, sinus pain, sore throat, trouble swallowing and voice change. Swollen glands in neck Eyes: Negative for photophobia, pain, discharge, itching and visual disturbance. Respiratory: Positive for shortness of breath and wheezing. Negative for apnea, cough and choking. Cardiovascular: Positive for leg swelling. Negative for chest pain and palpitations. Gastrointestinal: Negative for abdominal pain, constipation, diarrhea, nausea and vomiting. Endocrine: Negative for cold intolerance, heat intolerance, polydipsia, polyphagia and polyuria. Genitourinary: Negative for difficulty urinating, dysuria, enuresis, frequency, hematuria and urgency. Musculoskeletal: Positive for arthralgias, back pain, gait problem, joint swelling and myalgias. Negative for neck pain and neck stiffness. Muscle cramps, weakness Skin: Positive for color change and rash. Negative for pallor and wound. Allergic/Immunologic: Negative for environmental allergies, food allergies and immunocompromised state. Neurological: Positive for tremors, numbness and headaches. Negative for dizziness, seizures, syncope, facial asymmetry, speech difficulty, weakness and light-headedness. Memory loss Hematological: Does not bruise/bleed easily. Anemia Psychiatric/Behavioral: Positive for sleep disturbance. Negative for agitation, behavioral problems, confusion, decreased concentration, dysphoric mood, hallucinations, self-injury and suicidal ideas. The patient is not nervous/anxious and is not hyperactive. Depression Breast: Positive for tenderness. Current Outpatient Medications Medication Sig Dispense Refill ??? ALPRAZolam (XANAX) [...] mg tablet (Patient not taking: Reported on 10/25/2020) No current facility-administered medications for this visit. Physical Exam Neurological exam: Constitutional: Appears well and in no acute distress Mental Status: Alert and oriented times three, Language is fluent and approp, Good naming, Good repeats, Good attention, Good concentration, Recent and remote memory intact, Fund of knowledge is appropriate Cranial Nerves: CN's II-XII grossly intact including pupils which are equal, round, and reactive tolight Motor: Normal bulk and tone noted Strength: 5/5 throughout bilateral upper and lower extremities Sensory: Intact to LT, decreased pinprick in bilateral feet, and bilateral hands distally. Decreased sensation throughout left upper extremity-patchy areas Coordination: Good FNF, No obvious invol mvmts Gait: Intact with good heel, toe, some difficulty with tandem walking Reflexes: 3/4 throughout bilateral upper and lower extremities, no ankle clonus Extremities: No noted edema BP 136/70 (BP Location: Right arm, Patient Position: Sitting) Pulse 81 Temp 36.5 ??C (97.7 ??F) Ht 175.3 cm (5' 9 ) Wt 113.5 kg (250 lb 3.2 oz) LMP (LMP Unknown) BMI 36.95 kg/m?? Body mass index is 36.95 kg/m??. Hiwot Walters NP cc:Ravi Smith MD Cosigned by Alverto Iglesias MD at 10/31/2020 8:13 AM CDT documented in this encounter Plan of Treatment Not on file documented as of this encounter Results * EMG/NCV -Please select the performing region: [facility] (All Locations); Procedure performed at: [facility] EMG Lab; Clinical Summary: generalized paresthesias and dysesthesias, previous chemo; Reason for referral or diagnostic question: ?... (11/16/2020) Anatomical Region Laterality Modality Other us Hiwot Walters [facility] ORDERABLES Final R esult documented in this encounter Visit Diagnoses Diagnosis Neuropathy (CMS/HCC)- Primary Mononeuritis of unspecified site Malignant neoplasm of upper-inner quadrant of left female breast, unspecified estrogen receptor status (HCC) documented in this encounter Discontinued Medications Medication Sig Discontinue Reason Start Date End Da te psyllium 0.52 gram capsule Take 0.52 g by mouth 2 (two) times a day Therapy completed 10/25/2020 documented as of this encounter Historical Medications * This list may reflect changes made after this encounter. Medication Sig Dispense Quantity Refills Last Filled Start D ate End Date Rybelsus 14 mg tablet 10/24/202008/2022 added in this encounter Orders Outpatient Referral Count Last Ordered Date Fir st Ordered Date AMB REFERRAL TO NEUROLOGY 1 10/25/2020 documented in this encounter Care Teams Therapist Speech Relationship Specialty Start Date End Date Ravi Smith MD PCP - General 11/04/17 09/27/21 Aft, Kianna Machado MD PhD [address] [place] [address] Surgeon Surgical Oncology 11/22/17 Santiago Gilbert MD [address] [place] [address] Cloth Examiner Machine Gastroenterology 11/22/17 Dmitry Sanderson MD [address] [place], [place] [id number] Referring Physician Colon and Rectal Surgery 12/03/1805/06 Abbi Ventura MD [address] [place], [place] [id number] Medical Oncologist/Wage And Salary Specialist Medical Oncology 12/03/18 Montse Thompson MD [address] [facility] [facility] [address] [place], [place] [id number] Consulting Physician Gynecologic Oncology 12/03/18 Lela Hardy MD PhD [address] [place], [place] [phone] Radiation Oncologist Radiation Oncology 12/23/18 Aft, Kianna Machado MD PhD [address] [facility] [facility] [address] [place], [place] [phone] Surgeon Surgical Oncology 12/23/18 09/17/21 documented as of this encounter
--- OUTSIDE RECORDS SUMMARY | 2024-04-24 13:39 | XMS_ITS | Encounter Summary ---
Author Organization [facility] [employer] [facility] Address [address] [place] [address] Phone Care Team Providers Care Forensic Social Worker Name Role Phone Ravi Smith MD Primary Care Provider [phone] Aft, Kianna Machado MD PhD Unavailable [phone] Santiago Gilbert MD Unavailable [phone] Dmitry Sanderson MD Unavailable [phone] Abbi Ventura MD Unavailable Montse Thompson MD Unavailable [phone] Lela Hardy MD PhD Unavailable [phone] Aft, Kianna Machado MD PhD Unavailable [phone] Encounter Details Date Type Department Care Team (Late st Contact Info) Description 03/24/2021 Orders Only [facility] Oncology [address] [place] [address] Uriel Corral Social History Tobacco Use Types [...] on file 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 Gender Identity Not on file Sexual Orientation Not on file documented as of this encounter Plan of Treatment Not on file documented as of this encounter Visit Diagnoses Not on filedocumented in this encounter Care Teams Forensic Social Worker Relationship Specialty Start Date End Date Ravi Smith MD PCP - General 11/04/17 09/27/21 AftKianna MD PhD [address] [place] [address] Surgeon Surgical Oncology 11/22/17 Santiago Gilbert MD [address] [place] [address] Floor Installer Gastroenterology 11/22/17 Dmitry Sanderson MD [address] [place] [address] Referring Physician Colon and Rectal Surgery 12/03/1805/06 Abbi Ventura MD [address] [place] [address] [address] [place] [address] Medical Oncologist/Home Visits Nurse Medical Oncology 12/03/18 Montse Thompson MD [address] [place] [address] Consulting Physician Gynecologic Oncology 12/03/18 Lela Hardy MD PhD [address] [place] [address] Radiation Oncologist Radiation Oncology 12/23/18 Aft, Kianna Machado MD PhD [address] [facility] [address] [place], [place] [id number] Surgeon Surgical Oncology 12/23/18 09/17/21 documented as of this encounter
--- OUTSIDE RECORDS SUMMARY | 2024-04-24 13:39 | XMS_ITS | Encounter Summary ---
Author Organization [facility] [place] [facility] Address [address] [place] [address] Phone Care Team Providers Care Ror Engineer Name Role Phone Ravi Smith MD Primary Care Provider [phone] Aft, Kianna Machado MD PhD Unavailable [phone] Santiago Gilbert MD Unavailable [phone] Dmitry Sanderson MD Unavailable [phone] Abbi Ventura MD Unavailable Montse Thompson MD Unavailable [phone] Lela Hardy MD PhD Unavailable [phone] Aft, Kianna Machado MD PhD Unavailable [phone] Reason for Visit * Reason Comments OP Infusion Encounter Details Date Type Department Care Team (Late st Contact Info) Description 03/27/2021 1:30 PM METAL WEATHER STRIPPER Infusion [facility] Oncology [address] [place] [address] Dehydration (Primary Dx); Malignant neoplasm of upper-inner quadrant [...] on file 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 METAL WEATHER STRIPPER Gender Identity Not on file Sexual Orientation Not on file documented as of this encounter Last Filed Vital Signs Vital Sign Reading Time Taken Comments Blood Pressure 115/64 03/27/2021 1:02 PM METAL WEATHER STRIPPER Pulse 99 03/27/2021 1:02 PM METAL WEATHER STRIPPER Temperature 36.3 ??C (97.4 ??F) 03/27/2021 1:02 PM CS T Respiratory Rate 20 03/27/2021 1:02 PM METAL WEATHER STRIPPER Oxygen Saturation 98% 03/27/2021 1:02 PM METAL WEATHER STRIPPER Inhaled Oxygen Concentration - - Weight 113.5 kg (250 lb 3.2 oz) 03/27/2021 1:02 PM METAL WEATHER STRIPPER Height 173.2 cm (5' 8.19 ) 03/27/2021 1:02 PM CS T Body Mass Index 37.83 03/27/2021 1:02 PM METAL WEATHER STRIPPER documented in this encounter Nursing Notes * Rosaura Orellana RN - 03/27/2021 1:30 PM CST Patient is here for IV fluids and tolerated well. Patient creatinine is improving. IV removed. Gauze and pressure dressing applied. Discharge in stable condition via ambulatory. L WEATHER STRIPPER documented in this encounter Plan of Treatment Not on file documented as of this encounter Visit Diagnoses Diagnosis Dehydration- Primary Malignant neoplasm of upper-inner quadrant of left breast in female, estrogen receptor negative (HCC) documented in this encounter Administered Medications Inactive Administered Medications - up to 3 most recent administrations Medication Order MAR Action Action Date Dose Rate Site sodium chloride 0.9% bolus 1,000 mL 1,000 mL, intravenous, at 1,000 mL/hr, Administer over 1 Hours, Once, On 03/27/21 at 1330, For 1 doseIndications:Dehydration New Bag 03/27/2021 1:27 PM METAL WEATHER STRIPPER 1,000 mL 100 0 mL/hr documented in this encounter Orders Medications Ordered That Jefferson ht Not Have Been Administered Count Last Ordered Date First Ordered Date sodium chloride 0.9% bolus 1,000 mL 1 03/27 Appointment Requests Count Last Ordered Date Fi rst Ordered Date INFUSION APPT REQUEST 90 MIN 1 03/27/2021 documented in this encounter Care Teams Ror Engineer Relationship Specialty Start Date End Date Ravi Smith MD PCP - General 11/04/17 09/27/21 AfKianna simpson MD PhD [address] [place] [address] Surgeon Surgical Oncology 11/22/17 Santiago Gilbert MD [address] [place] [address] Engineer Operations And Maintenance Gastroenterology 11/22/17 Dmitry Sanderson MD [address] [place] [address] Referring Physician Colon and Rectal Surgery 12/03/1805/06 Abbi Ventura MD [address] [place] [address] [address] [place] [address] Medical Oncologist/Marketing Instructor Medical Oncology 12/03/18 Montse Thompson MD [address] [place] [address] [address] [place] [address] Consulting Physician Gynecologic Oncology 12/03/18 Lela Hardy MD PhD [address] [place] [address] [address] [place] [address] Radiation Oncologist Radiation Oncology 12/23/18 Kianna Bunch MD PhD [facility] [address] [place] [address] Surgeon Surgical Oncology 12/23/18 09/17/21 documented as of this encounter
--- OUTSIDE RECORDS SUMMARY | 2024-04-24 13:39 | XMS_ITS | Encounter Summary ---
Author Organization [facility] Address [address] [place] [address] Phone Care Team Providers Care Set Illustrator Name Role Phone Ravi Smith MD Primary Care Provider [phone] Aft, Kianna Machado MD PhD Unavailable [phone] Santiago Gilbert MD Unavailable [phone] Dmitry Sanderson MD Unavailable [phone] Abbi Ventura MD Unavailable Montse Thompson MD Unavailable [phone] Lela Hardy MD PhD Unavailable Aft, Kianna Machado MD PhD Unavailable [phone] Encounter Details Date Type Department Care Team (Late st Contact Info) Description 03/24/2021 Orders Only [facility] Oncology [address] [place] [address] Abbi Ventura MD [address] [place], [place] [id number] Dehydration (Primary Dx); Malignant neoplasm of upper-inner [...] on file 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 RECORDIST CHIEF Gender Identity Not on file Sexual Orientation Not on file documented as of this encounter Plan of Treatment Not on file documented as of this encounter Results * (ABNORMAL) Basic metabolic panel (03/27/2021 1:13 PM RECORDIST CHIEF) Sodium 138 135 - 145 mmol/L [facility] Potassium, pl 3.9 3.3 - 4.9 mmol/L [facility] Chloride 104 97 - 110 mmol/L [facility] CO2 27 22 - 32 mmol/L [facility] Anion gap 7 2 - 15 mmol/L [facility] BUN 26(H) 8 - 25 mg/dL [facility] Creatinine 1.70(H) 0.60 - 1.10 mg/dL [facility] Glucose 135 70 - 199 mg/dL [facility] Comment: Interpretive Data Fasting glucose [...] 2017. Calcium 9.5 8.5 - 10.3 mg/dL [facility] Blood 03/27/2021 1:13 PM RECORDIST CHIEF 03/27/2021 1:16 PM RECORDIST CHIEF Narrative [facility] - 03/27/2021 1:56 PM RECORDIST CHIEF Please Draw Post IVFS on Saturday03/27/21. Thank you! us Abbi Ventura MD LAB BLOOD ORDERABLES Final Resul t [facility] [place] [address] documented in this encounter Visit Diagnoses Diagnosis Dehydration- Primary Malignant neoplasm of upper-inner quadrant of left breast in female, estrogen receptor negative (HCC) Dehydration Malignant neoplasm of upper-inner quadrant of left breast in female, estrogen receptor negative (HCC) documented in this encounter Orders Appointment Requests Count Last Ordered Date Fi rst Ordered Date INFUSION APPT REQUEST 90 MIN 1 03/27/2021 ONCBCN LAB APPOINTMENT 1 03/27/2021 documented in this encounter Care Teams Set Illustrator Relationship Specialty Start Date End Date Ravi Smith MD PCP - General 11/04/17 09/27/21 Aft, Kianna Machado MD PhD [address] [place] [address] Surgeon Surgical Oncology 11/22/17 Santiago Gilbert MD [address] [place] [address] Controller Repairer And Tester Gastroenterology 11/22/17 Dmitry Sanderson MD [address] [place] [address] Referring Physician Colon and Rectal Surgery 12/03/1805/06 Abbi Ventura MD [address] [place] [address] Medical Oncologist/Refurbish Technician Medical Oncology 12/03/18 Montse Thompson MD [address] [place], [place] [phone] Consulting Physician Gynecologic Oncology 12/03/18 Lela Hardy MD PhD [address] [facility] [address] [place] [address] Radiation Oncologist Radiation Oncology 12/23/18 Aft, Kianna Machado MD PhD [address] [facility] [address] [place] [address] Surgeon Surgical Oncology 12/23/18 09/17/21 documented as of this encounter
--- OUTSIDE RECORDS SUMMARY | 2024-04-24 13:39 | XMS_ITS | Encounter Summary ---
Author Organization [facility] Address [address] [place] [address] Phone Care Team Providers Care Wire Mill Rover Name Role Phone Ravi Smith MD Primary Care Provider [phone] Aft, Kianna Machado MD PhD Unavailable [phone] Santiago Gilbert MD Unavailable [phone] Dmitry Sanderson MD Unavailable [phone] Abbi Ventura MD Unavailable Montse Thompson MD Unavailable [phone] Lela Hardy MD PhD Unavailable [phone] Aft, Kianna Machado MD PhD Unavailable [phone] Encounter Details Date Type Department Care Team (Late st Contact Info) Description 03/22/2021 Orders Only [facility] [address] [facility] Advanced Medicine 8th [place] [address] [place] [address] Cristobal Dong MD [address] [place] [address] Social History Tobacco Use Types [...] on file 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 Gender Identity Not on file Sexual Orientation Not on file documented as of this encounter Ordered Prescriptions Prescription Sig Dispense Quantity Refills Last Filled Start Date End Date albuterol HFA (PROVENTIL HFA,VENTOLIN HFA,PROAIR HFA) 90 mcg/actuation inhaler Inhale 2 puffs every 6 (six) hours as needed for wheezing 1 each 5 03/22/2021 3 predniSONE (DELTASONE) 20 mg tablet Take 1 tablet (20 mg) by mouth daily for 5 days 5 tablet 03/22/2021 1 documented in this encounter Plan of Treatment Not on file documented as of this encounter Visit Diagnoses Not on filedocumented in this encounter Care Teams Wire Mill Rover Relationship Specialty Start Date End Date Ravi Smith MD PCP - General 11/04/17 09/27/21 Aft, Kianna Machado MD PhD [address] [place] [address] Surgeon Surgical Oncology 11/22/17 Santiago Gilbert MD [address] [place] [address] Shirt Maker Gastroenterology 11/22/17 Dmitry Sanderson MD [address] [place] [address] Referring Physician Colon and Rectal Surgery 12/03/1805/06 Abbi Ventura MD [address] [place] [address] [address] [place] [address] Medical Oncologist/Shredding Machine Tender Medical Oncology 12/03/18 Montse Thompson MD [address] [facility] [address] [place] [address] Consulting Physician Gynecologic Oncology 12/03/18 Lela Hardy MD PhD [address] [facility] [address] [place] [address] Radiation Oncologist Radiation Oncology 12/23/18 Aft, Kianna Machado MD PhD [address] [place] [address] [address] [place] [address] Surgeon Surgical Oncology 12/23/18 09/17/21 documented as of this encounter
--- OUTSIDE RECORDS SUMMARY | 2024-04-24 13:39 | XMS_ITS | Encounter Summary ---
Author Organization [facility] Healthcare Address [address] [place] [address] Care Team Providers Care Railroad Emergency Services Manager Name Role Phone Ravi Smith MD Primary Care Provider [phone] Aft, Kianna Machado MD PhD Unavailable [phone] Santiago Gilbert MD Unavailable [phone] Dmitry Sanderson MD Unavailable [phone] Abbi Ventura MD Unavailable Montse Thompson MD Unavailable [phone] Lela Hardy MD PhD Unavailable [phone] Aft, Kianna Machado MD PhD Unavailable Reason for Referral * Diagnostic Imaging (Routine) - Closed Specialty Diagnoses / Procedures Referred By Contac t Referred To Contact Diagnoses Asthma-COPD overlap syndrome (HCC) Procedures XR Chest Pa Lateral 2 Views Cristobal Dong MD [address] [facility] [address] [place] [address] Phone: tel: fax: [address] [address] Referral ID Status Reason Start Date Expiration Date Visits Re quested Visits Authorized [id number] Closed 03/21/2021 04/20/2022 1 1 DIAL PROJECT MANAGER Reason for Visit * Diagnostic Imaging (Routine) - Closed Specialty Diagnoses / Procedures Referred By Contronny t Referred To Contact Diagnoses Asthma-COPD overlap syndrome (HCC) Procedures XR Chest Pa Lateral 2 Views Cristobal Dong MD [address] [place] [address] Phone: tel: fax: [facility] [address] [facility] [place] [address] Referral ID Status Reason Start Date Expiration Date Visits Re quested Visits Authorized [id number] Closed 03/21/2021 04/20/2022 1 1 Encounter Details Date Type Department Care Team (Latest Contact Info) Description 03/21/2021 2:54 PM REMEDIAL PROJECT MANAGER - 03/21/2021 11:59 PM REMEDIAL PROJECT MANAGER Hospital Encounter [facility] [address] [place] [id number] Cristobal Dong MD [address] [place] [address] Asthma-COPD overlap syndrome (CMS/HCC) (HCC) Discharge Disposition: [...] on file 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 REMEDIAL PROJECT MANAGER Gender Identity Not on file Sexual [...] Procedure Name Priority Date/Time Associated Diagnosis Comments XR CHEST PA LATERAL 2 VIEWS Schedule Routine, Read Routine (OP Routine) 03/21/2021 2:57 PM REMEDIAL PROJECT MANAGER Asthma-COPD overlap syndrome (CMS/HCC) (HCC) documented in this encounter Results * XR Chest Pa Lateral 2 Views (03/21/2021 2:57 PM REMEDIAL PROJECT MANAGER) Anatomical Region Laterality Modality Body, Chest N/A Computed Radiogr aphy 03/21/2021 3:37 PM REMEDIAL PROJECT MANAGER Impressions 03/21/2021 4:29 PM REMEDIAL PROJECT MANAGER Comparison is made to prior chest radiograph dated 07/26/2020 3:38 PM. Cardiac silhouette and mid sternal contours are stable. Lungs are clear. No pleural effusion or pneumothorax. Dictated by: Shady Riggs M.D. The radiology attending physician has personally reviewed this study, and had reviewed and/or edited this written report and agrees with it. Electronically signed by: Kristen Gentile M.D. Narrative 03/21/2021 4:29 PM REMEDIAL PROJECT MANAGER EXAMINATION: 2 view chest radiograph Procedure Note [...] (HCC) documented in this encounter Care Teams Railroad Emergency Services Manager Relationship Specialty Start Date End Date Ravi Smith MD PCP - General 11/04/17 09/27/21 Aft, Kianna Machado MD PhD [address] [place] [address] Surgeon Surgical Oncology 11/22/17 Santiago Gilbert MD [address] [place] [address] Rn Renal Gastroenterology 11/22/17 Dmitry Sanderson MD [address] [place], [place] [id number] Referring Physician Colon and Rectal Surgery 12/03/1805/06 Abbi Ventura MD [address] [facility] [address] [place], [place] [id number] Medical Oncologist/Wastewater Project Manager Medical Oncology 12/03/18 Montse Thompson MD [address] [facility] [address] [place], [place] [id number] Consulting Physician Gynecologic Oncology 12/03/18 Lela Hardy MD PhD [address] [facility] [address] [place], [place] [id number] Radiation Oncologist Radiation Oncology 12/23/18 Aft, Kianna Machado MD PhD [address] [facility] [address] [place], [place] [id number] Surgeon Surgical Oncology 12/23/18 09/17/21 documented as of this encounter
--- OUTSIDE RECORDS SUMMARY | 2024-04-24 13:40 | XMS_ITS | Encounter Summary ---
Author Organization [facility] Address [address] [facility] [address] [place] [address] Care Team Providers Care Application Counselor Name Role Phone Ravi Smith MD Primary Care Provider [phone] Aft, Kianna Machado MD PhD Unavailable [phone] Santiago Gilbert MD Unavailable [phone] Dmitry Sanderson MD Unavailable [phone] Abbi Ventura MD Unavailable Montse Thompson MD Unavailable [phone] Lela Hardy MD PhD Unavailable [phone] Aft, Kianna Machado MD PhD Unavailable [phone] Reason for Visit * Reason Comments New Patient Amaurosis fugax * Consultation (Routine) - Closed Specialty Diagnoses / Procedures Referred By Vijaya simpson Referred To Contact Vascular Surgery Diagnoses Amaurosis fugax Ravi Smith MD Phone: tel: fax: Beto Mckeon MD [address] [place] [address] [address] Phone: tel: fax: Referral ID Status Reason Start Date Expiration Date V isits Requested Visits Authorized [id number] Closed Specialty Services Required 08/05/2020 09/04/2021 1 1 Encounter Details Date Type Department Care Team (Late st Contact Info) Description 08/18/2020 1:30 PM CDT Office Visit [facility] Vascular and Vein Surgery [address] [facility] [address] [place] [address] Beto Mckeon MD [address] [place] [address] [address] [place] [address] Essential hypertension (Primary Dx); Amaurosis fugax; Hyperlipidemia, unspecified hyperlipidemia type Social History Tobacco Use Types Packs/Day Years [...] on file 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 Gender Identity Not on file Sexual Orientation Not on file documented as of this encounter Last Filed Vital Signs Vital Sign Reading Time Taken Comments Blood Pressure 119/73 08/18/2020 1:33 PM CDT Pulse 89 08/18/2020 1:33 PM CDT Temperature - - Respiratory Rate - - Oxygen Saturation - - Inhaled Oxygen Concentration - - Weight 109.8 kg (242 lb) 08/18/2020 1:33 PM CDT Height 175.3 cm (5' 9 ) 08/18/2020 1:33 PM CDT Body Mass Index 35.74 08/18/2020 1:33 PM CDT documented in this encounter Progress Notes * Beto Mckeon MD - 08/18/2020 1:30 PM CDT Subjective/Objective Patient ID: Aleah Gerber is a 65 y.o. female. Chief Complaint Visual changes left eye Chief Complaint Patient presents with ??? New Patient Amaurosis fugax HPI Patient is a 65-year-old woman who is noted to have visual changes in her left eye which lasted forapproximately 20 minutes 3-4 weeks ago. This is described as a cervical in the mid field of the left eye which eventually cleared up. Patient has had no lateralizing numbness or weakness. Patient states in the past she has had some transient visual loss in the left eye over the last several years which has not persisted. She has had no history of CVA. She comes in for evaluation of potential carotid stenosis. Current Outpatient Medications: ??? acetaminophen (TYLENOL) 500 mg tablet, Take 1,000 mg by mouth every 6 (six) hours as needed forpain, Disp: , Rfl: ??? albuterol HFA (PROVENTIL HFA,VENTOLIN HFA,PROAIR HFA) 90 mcg/actuation inhaler, Inhale 2 puffs every 6 (six) hours as needed for wheezing, Disp: 1 Inhaler, Rfl: 5 ??? ALPRAZolam (XANAX) 0.25 mg tablet, Take 0.25 mg by mouth 3 (three) times a day as needed for anxiety , Disp: , Rfl: ??? atorvastatin (LIPITOR) 20 mg tablet, Take 20 mg by mouth nightly , Disp: , Rfl: 0 ??? Bydureon BCise 2 mg/0.85 mL auto-injector, INJECT 2MG UNDER THE SKIN EVERY WEEK, Disp: , Rfl: ??? cyclobenzaprine (FLEXERIL) 10 mg tablet, TK 1 T PO QHS, Disp: , Rfl: ??? dulaglutide (TRULICITY) 0.75 mg/0.5 mL pen injector, Inject 0.75 mg under the skin every 7 daysWednesday, Disp: , Rfl: ??? DULoxetine DR (CYMBALTA) 30 mg capsule, TK 1 C PO QD, Disp: , Rfl: ??? DULoxetine DR (CYMBALTA) 60 mg capsule, Take 60 mg by mouth daily, Disp: , Rfl: ??? famotidine (PEPCID) 20 mg tablet, Take 1 tablet (20 mg total) by mouth 2 (two) times a day, Disp: 60 tablet, Rfl: 5 ??? fluticasone propion-salmeteroL (ADVAIR DISKUS) 500-50 mcg/dose diskus inhaler, Inhale 1 puff 2 (two) times a day Rinse mouth with water after use. Do not swallow., Disp: 60 each, Rfl: 5 ??? fluticasone propionate (FLONASE) 50 mcg/actuation nasal spray, Administer 2 sprays into each nostril daily, Disp: 16 g, Rfl: 6 ??? gabapentin (NEURONTIN) 300 mg capsule, Take 300 mg by mouth as needed , Disp: , Rfl: ??? hydroCHLOROthiazide (HYDRODIURIL) 12.5 mg tablet, Take 12.5 mg by mouth every morning , Disp: ,Rfl: 0 ??? mecobalamin, vitamin B12, 1,000 mcg tablet,disintegrating, Place under the tongue every morning, Disp: , Rfl: ??? propranolol LA (INDERAL LA) 60 mg 24 hr capsule, TK 1 C PO D, Disp: , Rfl: ??? sitaGLIPtin-metformin (JANUMET XR) 100-1,000 mg tablet, ER multiphase 24 hr, Take 1 tablet by mouth daily with dinner , Disp: , Rfl: ??? Trulicity 1.5 mg/0.5 mL pen injector, , Disp: , Rfl: ??? LORazepam (ATIVAN) 0.5 mg tablet, Take 1 tablet (0.5 mg total) by mouth as directed 1 by mouth 30 minutes prior to MRI (Patient taking differently: Take 0.5 mg by mouth as needed 1 by mouth 30 minutes prior to MRI), Disp: 2 tablet, Rfl: 0 Allergies Allergen Reactions ??? Oxaliplatin Swollen tongue Throat swelling ??? Tetanus Vaccines And Toxoid Swelling and Rash Past Medical History: Diagnosis Date ??? Anemia ??? Anxiety ??? Asthma ??? At risk for sleep apnea Per assessment, STOP BANG=3. Pt reports her PCP wants to do a Sleep Study in the near future. ??? BRCA2 positive ??? Breast cancer (CMS/HCC) 2018 left breast cancer ??? Breast cancer (CMS/HCC) [...] 06/07 chemotherapy ??? TIA (transient ischemic attack) 2007 ??? Type 2 diabetes mellitus (CMS/HCC) ??? Vascular disease Past Surgical History: Procedure [...] Breast Needle Localization partial mastectomy (L), Biopsy [place] Lymph Node With Lymphoscintigraphy (L), Insertion Port A Cath (R) with ultrasound and fluroscopy ??? OOPHORECTOMY ??? PORTACATH PLACEMENT 01/2018 right upper chest ??? PORTACATH PLACEMENT Right 2018 ??? TUBAL LIGATION 1992 ??? VAGINAL DELIVERY Family History Problem Relation Age of Onset ??? Prostate cancer Father 60 ??? Pancreatic cancer Sister 40 ??? Other (pancreatic cancer) Sister ??? Liver cancer Maternal Grandmother 80 ??? Heart attack Mother 70 ??? Stent Mother ??? Heart attack Maternal Grandfather ??? Heart attack Paternal Grandmother ??? Breast cancer Father's Sister ??? Anesthesia problems Neg Hx Social History Socioeconomic History ??? Marital status: Spouse name: None ??? Number of children: None ??? Years of education: None ??? Highest education level: None Occupational History ??? None Tobacco Use ??? Smoking status: Former Smoker Packs/day: 1.00 Types: Cigarettes Start date: 1972 Quit date: 2015 Years since quittin.2 ??? Smokeless tobacco: Never Used Substance and Sexual Activity ??? Alcohol use: Not Currently Comment: socially ??? Drug use: Never ??? Sexual activity: Defer Other Topics Concern ??? None Social History Narrative ??? None Social Determinants of Health Financial Resource Strain: [...] Gatherings with Friends and Family: ??? Attends [employer] Services: ??? Active Member of Clubs or Organizations: ??? Attends Club or Organization Meetings: ??? Marital Status: Intimate Partner Violence: ??? Fear of Current or Ex-Partner: ??? Emotionally Abused: ??? Physically Abused: ??? Sexually Abused: ROS Constitutional: No change in appetite. No recent weight loss. No fevers,chills or sweats. HENT: No trouble swallowing. No tinnitus. Eyes: No visual disturbances. Respiratory: No shortness of breath. No cough or sputum production. No wheezing. Cardiovascular: No chest pain. No palpitations. Gastrointestinal: No abdominal pain. No nausea, vomiting or diarrhea. Genitourinary: No dysuria. No hematuria. Extremities: No claudication Musculoskeletal: No joint pains. No back pain. No myalgias. Neurologic: No dizziness. No syncope. No weakness. Endocrine: No polydipsia, polyphagia or polyuria. Skin: No rashes. No discoloration. Hematologic: No bleeding. No easy bruising. Psychiatric: No anxiety. No behavioral changes. No mood swings. PE Constitutional: Alert and oriented Eyes: Extraocular movements full, sclerae anicteric HENT: Head atraumatic and normocephalic Neck is supple No carotid bruits Chest: Effort normal. Breath sounds normal. Cardiovascular: S1 and S2 are normal. No murmurs, rubs or gallops appreciated. Extremities: femoral, polpliteal palpable. Posterior tibial and dorsalis pedis pulses palpable. Abdominal: Soft, nontender, no masses. Normal bowel sounds. Musculoskeletal: Normal range of motion. Neurologic: Cranial nerves 2-12 intact. Strength and sensation intact bilaterally. Skin: Warm and dry. No rashes. No discoloration. Hematologic/Lymphatic: No adenopathy, no ecchymoses. Psychiatric: Normal mood and affect. Behavior normal.Judgment normal. IMAGING RESULTS Carotid duplex scan was visualized and reviewed by me. The patient has no significant stenosis in either internal carotid artery ASSESSMENT AND PLAN Assessment/Plan Diagnoses and all orders for this visit: Essential hypertension (Primary) Amaurosis fugax - Ambulatory referral to Vascular Surgery - Carotids Duplex Bilateral; Future Hyperlipidemia, unspecified hyperlipidemia type impression 1. Visual changes left eye. These have been described as an ocular migraine. The patienthas no evidence of significant carotid artery occlusive disease on either side. Discussed this withthe patient and she was relieved Plan: No vascular intervention indicated. Follow-up as needed Impression 2. Hypertension. Patient's hypertension is currently under good control Plan: Hypertensive management as per primary care provider. Anti hypertensive medications were reviewed and will continue without changes Impression 3. Hyperlipidemia. The patient is currently on a statin and tolerating it well Plan: Hyperlipidemia management as per primary care provider. Statin medications were reviewed and will continue without changes documented in this encounter Plan of Treatment Not on file documented as of this encounter Visit Diagnoses Diagnosis Essential hypertension- Primary Unspecified essential hypertension Amaurosis fugax Transient arterial occlusion of retina Hyperlipidemia, unspecified hyperlipidemia type documented in this encounter Historical Medications * This list may reflect changes made after this encounter. Bydureon BCise 2 mg/0.85 mL auto-injector INJECT 2MG UNDER THE SKIN EVERY WEEK 08/03/2020 10/14/2020 added in this encounter Orders Outpatient Referral Count Last Ordered Date Fir st Ordered Date AMB REFERRAL TO VASCULAR SURGERY 1 08/19/19 21 documented in this encounter Care Teams Application Counselor Relationship Specialty Start Date End Date Ravi Smith MD PCP - General 11/04/17 09/27/21 Kianna Bunch MD PhD [address] [place] [address] Surgeon Surgical Oncology 11/22/17 Santiago Gilbert MD [address] [place] [address] Journalism Instructor Gastroenterology 11/22/17 Dmitry Sanderson MD [address] [place] [address] Referring Physician Colon and Rectal Surgery 12/03/1805/06 Abbi Ventura MD [address] [place] [address] [address] [place] [address] Medical Oncologist/Radio Reporter Medical Oncology 12/03/18 Montse Thompson MD [address] [place] [address] [address] [place] [address] Consulting Physician Gynecologic Oncology 12/03/18 Lela Hardy MD PhD [address] [place] [address] [address] [place] [address] Radiation Oncologist Radiation Oncology 12/23/18 Kianna Bunch MD PhD [address] [place] [address] [address] [place] [address] Surgeon Surgical Oncology 12/23/18 09/17/21 documented as of this encounter
--- OUTSIDE RECORDS SUMMARY | 2024-04-24 13:40 | XMS_ITS | Encounter Summary ---
Author Organization [facility] Address [address] [facility] [address] [place] [address] Phone Care Team Providers Care Collection Technician Name Role Phone Hugo Smith MD Primary Care Provider [phone] Aft, Tony Machado MD PhD Unavailable [phone] Santiago Gilbert MD Unavailable [phone] Nicole López MD Unavailable [phone] Birdie Ventura MD Unavailable Montse Thompson MD Unavailable Lela Hardy MD PhD Unavailable Aft, Tony Machado MD PhD Unavailable [phone] Reason for Visit * Reason Comments Annual Exam Encounter Details Date Type Department Care Team (Late st Contact Info) Description 09/12/2020 2:00 PM CDT Office Visit 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 Gender Identity Not on file Sexual Orientation Not on file documented as of this encounter Last Filed Vital Signs Vital Sign Reading Time Taken Comments Blood Pressure 147/81 09/12/2020 2:06 PM CDT Pulse 92 09/12/2020 2:06 PM CDT Temperature 36.8 ??C (98.3 ??F) 09/12/2020 2:06 PM CD T Respiratory Rate 16 09/12/2020 2:06 PM CDT Oxygen Saturation 97% 09/12/2020 2:06 PM CDT Inhaled Oxygen Concentration - - Weight 112 kg (247 lb) 09/12/2020 2:06 PM CDT Height 175.3 cm (5' 9 ) 09/12/2020 2:06 PM CDT Body Mass Index 36.48 09/12/2020 2:06 PM CDT documented in this encounter Progress Notes * Montse Thompson MD - 09/12/2020 12:00 AM CDT PATIENT: ALEAH GERBER : 1955 FARHAT: 09/12/2020 REASON FOR VISIT: Surveillance for BRCA2 mutation. HISTORY OF PRESENT ILLNESS: Ms. Gerber is a gaviota 65-year-old female, who was diagnosed with an invasive [...] ago. The patient is scheduled with Dr. Bunch for surgical intervention of her breast cancer. [...] The patient presents today for routine surveillance. Of note, the patient has not been seen since March 2019 secondary to the fact of the COVID-19 pandemic. The patient unfortunately feels that she has multiple areas of abnormal point tenderness. The patient currently feels it mainly on her right side of her neck. The patient gets daily headaches. She is trying to figure out what is causing this, but she has been unsuccessful. The patient does complain of some mild changes in vision. She hasfatigue. She does complain of shortness of breath with exertion. She does have palpitations as well. She complains of some loss of control of urine, but it is unchanged. 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 The patient does complain of headaches, as mentioned above. Due to the factthat the patient has some many different maladies from all her treatments and does not feel well, the patient has a distress score of a 7. She does complain of hot flashes, which is mainly sweating profusely with exertion. Otherwise, the patient denies any fever, chills, pelvic pain, pelvic pressure, changes in GI habits, or vaginal bleeding. PAST MEDICAL HISTORY/REVIEW OF SYSTEMS: Unchanged from October 2018, except for the above updates. Additionally, the patient has had her COVID-19 vaccination. PHYSICAL EXAMINATION: Vital Signs: Blood pressure is 147/81. Her pulse is 92. Her weight is 247 pounds, which is an increase of 5 pounds from her last visit. General Appearance: The patient is a well-developed, well-nourished female in no acute distress. HEENT: Atraumatic, normocephalic, PERRLA, EOMI, EENT: Within normal limits. Neck is supple, withoutthyromegaly or JVD. LN Survey: No supraclavicular, inguinal, or femoral lymphadenopathy. Lungs: Clear to auscultation bilaterally. Heart: Regular rate and rhythm. Positive S1/S2. Breasts: Deferred. Back: No CVA or paraspinal tenderness. Abdomen: Soft, nontender, nondistended. Normoactive bowel sounds. The patient has well-healed robotic incisions as well as a vertical incision. Extremities: No clubbing, cyanosis, or edema. Neurologic: The patient is awake, alert, and oriented x 3. Pelvic Exam: External genitalia: Within normal limits. Urethra: Without masses or tenderness. Urethral meatus: Without any lesions or prolapse. Bladder: No masses or tenderness. Vulva: Normal. Speculum Exam: The vaginal cuff is intact. There are no abnormalities noted. Bimanual: Cervix, uterus, and adnexa are surgically absent. No palpable masses, tenderness, or nodularity appreciated. Rectovaginal: Exam is confirmatory. Guaiac is negative. ASSESSMENT AND PLAN: The patient is a 65-year-old female, status post a robotic-assisted total laparoscopic hysterectomy/bilateral salpingo-oophorectomy secondary to a BRCA2 mutation. 1. BRCA2 mutation: The patient will continue to follow up on an annual basis. The patient clinically has no evidence of primary peritoneal cancer. 2. Cervical dysplasia: The patient has a remote history of abnormal Pap smears. Her most recent Papsmear was high-risk HPV negative, but it did show atypical glandular cells of undetermined significance. Therefore, the patient should have one more Pap smear at her next visit ideally. 3. Distress score of 7: The patient was made aware that we could refer her to [facility], but she declines. 4. Follow-up would be ideally in 1 year's time, unless the CA-125 shows an abnormality. ELECTRONICALLY SIGNED - 09/13/2020 10:58 AM Montse Thompson M.D. Professor, Department of Obstetrics and Gynecology Director of Gynecological Oncology Clinical Research Division of Gynecologic Oncology [facility] [id number] cc: BIRDIE VENTURA M.D. / TONY BUNCH MD / HUGO SMITH MD / / NICOLE LÓPEZ MD / MELIZA JENNINGS MD / documented in this encounter Miscellaneous Notes * Treatment Plan - Montse Thompson MD - 09/12/2020 2:00 PM CDT Please schedule Aleah Gerber for the following: Requested Order Contrast Indication When CXR CT Chest, Abdomen, and Pelvis CT Abdomen and Pelvis LEEP (during clinic hours) CRIME SPECIALIST Ultrasound MRI Mammogram PET Initiate Survivoship Care Plan Surveillance Labs (CBC w/ Diff, CMP, Magnesium, CA125) Labwork: ca 125 today and in a year x documented in this encounter Plan of Treatment Not on file documented as of this encounter Results * CA 125 (09/21/2021 1:55 PM CDT) CA 125 ag 9.7 0.0 - 38.0 units/mL [facility] Comment: Interpretive Data The Bo CA 125 assay procedure was used. Results from different manufacturers or methods may not be comparable. Serial testing should be performed using the same method. Blood 09/21/2021 1:55 PM CDT 09/21/2021 3:28 PM CDT Montse Thompson MD LAB BLOOD ORDERABLES Fin al Result Performing Organization Address [facility] de Phone Number [facility] [place] [address] * CA 125 (09/12/2020 3:44 PM CDT) CA 125 ag 7.9 0.0 - 35.0 units/mL [facility] Blood specimen (specimen) 09/12/2020 3:44 PM CDT 09/12/2020 4:01 PM CDT [facility] Ac Thompson MD LAB BLOOD ORDERABLES Fin al Result Performing Organization Address [facility] de Phone Number [facility] [place] [address] documented in this encounter Visit Diagnoses Diagnosis BRCA2 gene mutation positive in female- Primary documented in this encounter Discontinued Medications Medication Sig Discontinue Reason Start Date End Da te DULoxetine DR (CYMBALTA) 30 mg capsule TK 1 C PO QD 09/01/2019 09/12/2020 documented as of this encounter Care Teams Collection Technician Relationship Specialty Start Date End Date Hugo Smith MD PCP - General 11/04/17 09/27/21 Aft, Tony Machado MD PhD [address] [place] [address] Surgeon Surgical Oncology 11/22/17 Santiago Gilbert MD [address] [place] [address] Early Morning Babysitter Gastroenterology 11/22/17 Nicole López MD [address] [place], [place] [id number] Referring Physician Colon and Rectal Surgery 12/03/1805/06 Birdie Ventura MD [address] [place] [address] [address] [place], [place] [id number] Medical Oncologist/Jewelry Designer Medical Oncology 12/03/18 Montse Thompson MD [address] [place] [address] [address] [place] [address] Consulting Physician Gynecologic Oncology 12/03/18 Lela Hardy MD PhD [address] [place] [address] [address] [place], [place] [id number] Radiation Oncologist Radiation Oncology 12/23/18 Aft, Tony Machado MD PhD [address] [place] [address] [address] [place], [place] [id number] Surgeon Surgical Oncology 12/23/18 09/17/21 documented as of this encounter
--- OUTSIDE RECORDS SUMMARY | 2024-04-24 13:40 | XMS_ITS | Encounter Summary ---
Author Organization [facility] Healthcare Address [address] [place] [address] Care Team Providers Care Forestry Tree Pruner Name Role Phone Ravi Smith MD Primary Care Provider [phone] Aft, Kianna Machado MD PhD Unavailable [phone] Santiago Gilbert MD Unavailable [phone] Dmitry Sanderson MD Unavailable [phone] Abbi Ventura MD Unavailable Montse Thompson MD Unavailable [phone] Lela Hardy MD PhD Unavailable [phone] Aft, Kianna Machado MD PhD Unavailable [phone] Reason for Referral * MRI/CAT/PET Scan (Routine) - Closed Specialty Diagnoses / Procedures [facility] To Contact Radiology Diagnoses Malignant neoplasm of upper-inner quadrant of left breast in female, 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) Procedures CT Chest Abdomen Pelvis W Contrast Abbi Ventura MD [address] [place] [address] Phone: tel: fax: [facility] Referral ID Status Reason Start Date Expiration Date Visits Re quested Visits Authorized [id number] Closed 09/29/2020 10/29/2021 1 1 Reason for Visit * MRI/CAT/PET Scan (Routine) - Closed Specialty Diagnoses / Procedures Referred By [facility]ac t Referred To Contact Radiology Diagnoses Malignant neoplasm of upper-inner quadrant of left breast in female, 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) Procedures CT Chest Abdomen Pelvis W Contrast Abbi Ventura MD [address] [facility] [place] [address] Phone: tel: fax: [facility] Referral ID Status Reason Start Date Expiration Date Visits Re quested Visits Authorized [id number] Closed 09/29/2020 10/29/2021 1 1 Encounter Details Date Type Department Care Team (Latest Contact Info) Description 10/06/2020 11:18 AM CDT - 10/06/2020 3:21 PM CDT Hospital Encounter [facility] Radiology [address] [place] [address] Abbi Ventura MD [address] [place] [address] Malignant neoplasm of upper-inner quadrant of left breast in female, 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); Malignant neoplasm of descending colon (CMS/HCC) Discharge Disposition: Discharge to home or self [...] on file 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 Gender Identity Not on file Sexual Orientation Not on file documented as of this encounter Medications at Time of Discharge ALPRAZolam (XANAX) 0.25 mg tablet Take 1 tablet (0.25 mg total) by mouth 3 (three) times a day as needed for anxiety 11/07/[address] (CYMBALTA) 60 mg capsuleIndicatio ns:Neuropathic Pain Take 1 capsule (60 mg total) by mouth nightly 05/07/2020 propranolol LA (INDERAL LA) 60 mg 24 hr capsuleIndicatio ns:Essential Tremor Take 1 capsule (60 mg total) by mouth 2 (two) times a day 10/26/2019 albuterol HFA (PROVENTIL HFA,VENTOLIN HFA,PROAIR HFA) 90 mcg/actuation inhalerIndicatio ns:Acute Asthma Attack Inhale 2 puffs every 6 (six) hours as needed for wheezing 1 Inhaler 5 12/16/2019 1 atorvastatin (LIPITOR) 20 mg tabletIndication s:hyperlipidemia Take 20 mg by mouth nightly 0 02/21/2018 2 Bydureon BCise 2 mg/0.85 mL auto-injector INJECT 2MG UNDER THE SKIN EVERY WEEK 08/03/2020 1 dulaglutide (TRULICITY) 0.75 mg/0.5 mL pen injectorIndicati ons:type 2 diabetes mellitus,saturday Inject 0.75 mg under the skin every 7 days Saturday 1 famotidine (PEPCID) 20 mg tablet Take 1 tablet (20 mg total) by mouth 2 (two) times a day 60 tablet 5 07/26/2020 1 fluticasone propion-salmeter oL (ADVAIR DISKUS) 500-50 mcg/dose diskus inhaler Inhale 1 puff 2 (two) times a day Rinse mouth with water after use. Do not swallow. 60 each 5 07/26/2020 2 fluticasone propionate (FLONASE) 50 mcg/actuation nasal spray Administer 2 sprays into each nostril daily 16 g 6 07/26/2020 1 gabapentin (NEURONTIN) 300 mg capsule TAKE 1 CAPSULE BY MOUTH THREE TIMES DAILY 90 capsule 2 09/27/2020 1 hydroCHLOROthiaz frederick (HYDRODIURIL) 12.5 mg tabletIndication s:hypertension Take 12.5 mg by mouth every morning 0 02/24/2018 2 sitaGLIPtin-metf ormin (JANUMET XR) 100-1,000 mg tablet, ER multiphase 24 hrIndications:ty pe 2 diabetes mellitus Take 1 tablet by mouth daily with dinner 1 Trulicity 1.5 mg/0.5 mL pen injector 07/02/2020 1 documented as of this encounter Discharge Disposition Disposition Code Departure Means Destination Discharge to home or self care documented in this encounter Plan of Treatment Not on file documented as of this encounter Procedures Procedure Name Priority Date/Time Associated Diagnosis Comments CT CHEST ABDOMEN PELVIS W CONTRAST Schedule Routine, Read Routine (OP Routine) 10/06/2020 12:23 PM CDT Malignant neoplasm of upper-inner quadrant of left breast in female, 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) Malignant neoplasm of descending colon (CMS/HCC) documented in this encounter Results * CT Chest Abdomen Pelvis W Contrast (10/06/2020 12:23 PM CDT) Anatomical Region Laterality Modality Body N/A Computed Tomogra phy 10/06/2020 12:5 4 PM CDT Impressions 10/06/2020 12:54 PM CDT No evidence of metastasis. Electronically signed by: Dat Springer M.D. Narrative 10/06/2020 12:54 PM CDT EXAMINATION: ??Computed tomography of the chest, abdomen and pelvis with intravenous contrast HISTORY: Breast and colon cancer, evaluate for metastasis TECHNIQUE: ??Transaxial computed tomographic images of the chest, abdomen and pelvis were obtained with intravenous contrast according to the standard protocol after the uneventful administration of 100 mL Opti-Ray 350 intravenous contrast. COMPARISON: 04/19/2020 FINDINGS: ?? Chest: No suspicious pulmonary nodule or mass. Consolidation in the lung. Heart size normal without pericardial effusion. No suspicious thoracic lymphadenopathy. Abdomen/Pelvis: No suspicious intrahepatic mass or biliary ductal dilation. The gallbladder, pancreas, and spleen are normal. Both kidneys enhance symmetrically and without obstructing stone or hydronephrosis. There is areas of cortical atrophy in the right kidney. Urinary bladder normal. Hysterectomy. Colonic anastomosis in the left upper quadrant. No bowel obstruction. Normal appendix. Severe atherosclerosis of the abdominal aorta and its branches. No suspicious abdominal lymphadenopathy. Rectus diastases along with a small fat-containing umbilical hernia. No suspicious osseous lesion. Procedure Note Dat Springer MD - 10/06/2020 EXAMINATION: Computed tomography of the chest, abdomen and pelvis with intravenous contrast HISTORY: Breast and colon cancer, evaluate for metastasis TECHNIQUE: Transaxial computed tomographic images of the chest, abdomen and pelvis were obtained with intravenous contrast according to the standard protocol after the uneventful administration of 100 mL Opti-Ray 350 intravenous contrast. COMPARISON: 04/19/2020 FINDINGS: Chest: No suspicious pulmonary nodule or mass. Consolidation in the lung. Heart size normal without pericardial effusion. No suspicious thoracic lymphadenopathy. Abdomen/Pelvis: No suspicious intrahepatic mass or biliary ductal dilation. The gallbladder, pancreas, and spleen are normal. Both kidneys enhance symmetrically and without obstructing stone or hydronephrosis. There is areas of cortical atrophy in the right kidney. Urinary bladder normal. Hysterectomy. Colonic anastomosis in the left upper quadrant. No bowel obstruction. Normal appendix. Severe atherosclerosis of the abdominal aorta and its branches. No suspicious abdominal lymphadenopathy. Rectus diastases along with a small fat-containing umbilical hernia. No suspicious osseous lesion. IMPRESSION: No evidence of metastasis. Electronically signed by: Dat Springer M.D. Abbi Ventura MD IMG CT PROCEDURES [...] Date Dose Rate Site ioversoL (OPTIRAY 350) syringe syringe 100 mL 100 mL, intravenous, Once in imaging, contrast, Starting on Bonnie 10/06/20 at 1215, For 1 dose Contrast Given 10/06/2020 12:24 PM CDT 100 mL documented in this encounter Orders Medications Ordered That Jefferson ht Not Have Been Administered Count Last Ordered Date First Ordered Date ioversoL (OPTIRAY 350) syrin ge syringe 100 mL 1 10/06/2020 documented in this encounter Care Teams Forestry Tree Pruner Relationship Specialty Start Date End Date Ravi Smith MD PCP - General 11/04/17 09/27/21 Aft, Kianna Machado MD PhD [address] [place] [address] Surgeon Surgical Oncology 11/22/17 Santiago Gilbert MD [address] [place] [address] Purse Seining Hand Gastroenterology 11/22/17 Dmitry Sanderson MD [address] [place] [address] Referring Physician Colon and Rectal Surgery 12/03/1805/06 Abbi Ventura MD [address] [place] [address] [address] [place] [address] Medical Oncologist/Alteration Workroom Supervisor Medical Oncology 12/03/18 Montse Thompson MD [address] [facility] [address] [place] [address] Consulting Physician Gynecologic Oncology 12/03/18 Lela Hardy MD PhD [address] [facility] [address] [place] [address] Radiation Oncologist Radiation Oncology 12/23/18 Aft, Kianna Machado MD PhD [address] [place] [address] Surgeon Surgical Oncology 12/23/18 09/17/21 documented as of this encounter
--- OUTSIDE RECORDS SUMMARY | 2024-04-24 13:40 | XMS_ITS | Encounter Summary ---
Author Organization [facility] Healthcare Address [address] [place] [address] Care Team Providers Care Nail Technician Name Role Phone Ravi Smith MD Primary Care Provider [phone] Aft, Kianna Machado MD PhD Unavailable [phone] Santiago Gilbert MD Unavailable [phone] Dmitry Sanderson MD Unavailable [phone] Abbi Ventura MD Unavailable Montse Thompson MD Unavailable Lela Hardy MD PhD Unavailable Aft, Kianna Machado MD PhD Unavailable Encounter Details Date Type Department Care Team (Late st Contact Info) Description 09/12/2020 3:40 PM CDT Lab [facility] [place] [address] Montse Thompson MD [address] [facility] [phone] [place] [address] BRCA2 gene mutation positive in female Discharge [...] on file 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 Gender Identity Not on file Sexual Orientation Not on file documented as of this encounter Discharge Disposition Disposition Code Departure Means Destination Discharge to home or self care documented in this encounter Plan of Treatment Not on file documented as of this encounter Procedures Procedure Name Priority Date/Time Associated Diagnosis Comments CA 125 Routine 09/12/2020 3:44 PM CDT BRCA2 gene mutation positive in female documented in this encounter Results * CA 125 (09/12/2020 3:44 PM CDT) CA 125 ag 7.9 0.0 - 35.0 units/mL [facility] Blood specimen (specimen) 09/12/2020 3:44 PM CDT 09/12/2020 4:01 PM CDT us Premal Ac Thompson MD LAB BLOOD ORDERABLES Fin al Result Performing Organization Address City/State/[facility] Co de Phone Number [facility] Department [place] [address] documented in this encounter Visit Diagnoses Diagnosis BRCA2 gene mutation positive in female documented in this encounter Care Teams Nail Technician Relationship Specialty Start Date End Date Ravi Smith MD PCP - General 11/04/17 09/27/21 Aft, Kianna Machado MD PhD [address] [place] [address] Surgeon Surgical Oncology 11/22/17 Santiago Gilbert MD [address] [place] [address] Butcher Head Gastroenterology 11/22/17 Dmitry Sanderson MD [address] [place] [address] Referring Physician Colon and Rectal Surgery 12/03/1805/06 Abbi Ventura MD [address] [place] [address] [address] [place] [address] Medical Oncologist/Collar Turner Operator Medical Oncology 12/03/18 Montse Thompson MD [address] [place] [address] [address] [place] [address] Consulting Physician Gynecologic Oncology 12/03/18 Lela Hardy MD PhD [address] [place] [address] [address] [place] [address] Radiation Oncologist Radiation Oncology 12/23/18 Aft, Kianna Machado MD PhD [address] [place] [address] [address] [place] [address] Surgeon Surgical Oncology 12/23/18 09/17/21 documented as of this encounter
--- OUTSIDE RECORDS SUMMARY | 2024-04-24 13:40 | XMS_ITS | Encounter Summary ---
Author Organization [facility] Healthcare Address [address] [place] [address] Care Team Providers Care Blow Mold Operator Name Role Phone Ravi Smith MD Primary Care Provider [phone] Aft, Kianna Machado MD PhD Unavailable [phone] Santiago Gilbert MD Unavailable [phone] Dmitry Sanderson MD Unavailable [phone] Abbi Ventura MD Unavailable Montse Thompson MD Unavailable [phone] Lela Hardy MD PhD Unavailable [phone] Aft, Kianna Machado MD PhD Unavailable [phone] Reason for Referral * Diagnostic Imaging (Routine) - Closed Specialty Diagnoses / Procedures Referred By Contac t Referred To Contact Diagnoses Moderate persistent asthma, unspecified whether complicated Procedures XR Chest Pa Lateral 2 Views Cristobal Dong MD [address] [facility] [address] [place] [address] Phone: tel: fax: [address] [address] Referral ID Status Reason Start Date Expiration Date Visits Re quested Visits Authorized [id number] Closed 07/26/2020 08/25/2021 1 1 Reason for Visit * Diagnostic Imaging (Routine) - Closed Specialty Diagnoses / Procedures Referred By Contac t Referred To Contact Diagnoses Moderate persistent asthma, unspecified whether complicated Procedures XR Chest Pa Lateral 2 Views Cristobal Dong MD [address] [place] [address] Phone: tel: fax: [facility] [address] [facility] [place] [address] Referral ID Status Reason Start Date Expiration Date Visits Re quested Visits Authorized [id number] Closed 07/26/2020 08/25/2021 1 1 Encounter Details Date Type Department Care Team (Latest Contact Info) Description 07/26/2020 3:26 PM CDT - 07/26/2020 11:59 PM CDT Hospital Encounter [facility] [address] [place] [address] Cristobal Dong MD [address] [facility] [place] [address] Moderate persistent asthma, unspecified whether complicated Discharge [...] on file 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 Gender Identity Not on file Sexual Orientation [...] mouth 2 (two) times a day 10/26/2019 acetaminophen (TYLENOL) 500 mg tablet Take 1,000 mg by mouth every 6 (six) hours as needed for pain 1 albuterol HFA (PROVENTIL HFA,VENTOLIN HFA,PROAIR HFA) 90 mcg/actuation inhalerIndicatio ns:Acute Asthma Attack Inhale 2 puffs every 6 (six) hours as needed for wheezing 1 Inhaler 5 12/16/2019 1 atorvastatin (LIPITOR) 20 mg tabletIndication s:hyperlipidemia Take 20 mg by mouth nightly 0 02/21/2018 2 cyclobenzaprine (FLEXERIL) 10 mg tablet TK 1 T PO QHS 02/15/2020 1 dulaglutide (TRULICITY) 0.75 mg/0.5 mL pen injectorIndicati ons:type 2 diabetes mellitus,saturday Inject 0.75 mg under the skin every 7 days Saturday [address] (CYMBALTA) 30 mg capsule TK 1 C PO QD 09/01/2019 1 famotidine (PEPCID) 20 mg tablet Take [...] 07/26/2020 1 gabapentin (NEURONTIN) 300 mg capsule Take 300 mg by mouth as needed 07/02/2020 1 hydroCHLOROthiaz frederick (HYDRODIURIL) 12.5 mg tabletIndication s:hypertension Take 12.5 mg by mouth every morning 0 02/24/2018 2 LORazepam (ATIVAN) 0.5 mg tablet Take 1 tablet (0.5 mg total) by mouth as directed 1 by mouth 30 minutes prior to MRI 2 tablet 04/12/2020 1 mecobalamin, vitamin B12, 1,000 mcg tablet,disintegr ating Place under the tongue every morning 1 sitaGLIPtin-metf ormin (JANUMET XR) 100-1,000 mg tablet, [...] VIEWS Schedule Routine, Read Routine (OP Routine) 07/26/2020 3:32 PM CDT Moderate persistent asthma, unspecified whether complicated documented in this encounter Results * XR Chest Pa Lateral 2 Views (07/26/2020 3:32 PM CDT) Anatomical Region Laterality Modality Body, Chest N/A Computed Radiogr aphy 07/26/2020 4:05 PM CDT Impressions 07/26/2020 4:19 PM CDT Comparison is made with chest radiograph dated 02/05/2019. Interval removal of a right-sided port catheter. No focal consolidation, pleural effusion, or pneumothorax. The cardiomediastinal silhouette is within normal limits. Dictated by: Jack Pacheco M.D. The radiology attending physician has personally reviewed this study, and had reviewed and/or edited this written report and agrees with it. Electronically signed by: Luís Casper M.D. Narrative 07/26/2020 4:19 PM CDT EXAMINATION: 2 view chest radiograph Procedure Note Luís Casper MD - 07/26/2020 EXAMINATION: 2 view chest radiograph IMPRESSION: Comparison is made with chest radiograph dated 02/05/2019. Interval removal of a right-sided port catheter. No focal consolidation, pleural effusion, or pneumothorax. The cardiomediastinal silhouette is within normal limits. Dictated by: Jack Pacheco M.D. The radiology attending physician has personally reviewed this study, and had reviewed and/or edited this written report and agrees with it. Electronically signed by: Luís Casper M.D. Cristobal Dong MD IMG XR PROCEDURES Final Result documented in this encounter Visit Diagnoses Diagnosis Moderate persistent asthma, unspecified whether complicated documented in this encounter Care Teams Blow Mold Operator Relationship Specialty Start Date End Date Ravi Smith MD PCP - General 11/04/17 09/27/21 Aft, Kianna Machado MD PhD [address] [place] [address] Surgeon Surgical Oncology 11/22/17 Santiago Gilbert MD [address] [place] [address] Straight Pin Making Machine Operator Gastroenterology 11/22/17 Dmitry Sanderson MD [address] [place] [address] Referring Physician Colon and Rectal Surgery 12/03/1805/06 Abbi Ventura MD [address] [place] [place] [address] [place] [address] Medical Oncologist/Freight Loading Supervisor Medical Oncology 12/03/18 Montse Thompson MD [address] [place] [address] Consulting Physician Gynecologic Oncology 12/03/18 Lela Hardy MD PhD [address] [facility] [address] [place] [address] Radiation Oncologist Radiation Oncology 12/23/18 Aft, Kianna Machado MD PhD [address] [facility] [address] [place] [address] Surgeon Surgical Oncology 12/23/18 09/17/21 documented as of this encounter
--- OUTSIDE RECORDS SUMMARY | 2024-04-24 13:40 | XMS_ITS | Encounter Summary ---
Author Organization [facility] Address [address] [place] [address] Phone Care Team Providers Care Pension Administrator Name Role Phone Ravi Smith MD Primary Care Provider [phone] Aft, Kianna Machado MD PhD Unavailable [phone] Santiago Gilbert MD Unavailable [phone] Dmitry Sanderson MD Unavailable [phone] Abbi Ventura MD Unavailable Montse Thompson MD Unavailable [phone] Lela Hardy MD PhD Unavailable [phone] Aft, Kianna Machado MD PhD Unavailable [phone] Encounter Details Date Type Department Care Team (Late st Contact Info) Description 10/07/[address] 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 Patient verbalizes understanding and is awaiting appointment with Rheumatology and Neurology as per referral requests. Patient is scheduled to see Dr. Ventura on 03/23/21. Patient denies any further questions/concerns at this time. Uriel Corral RN documented in this encounter Plan of Treatment Not on file documented as of this encounter Visit Diagnoses Not on filedocumented in this encounter Care Teams Pension Administrator Relationship Specialty Start Date End Date Ravi Smith MD PCP - General 11/04/17 09/27/21 Aft, Kianna Machado MD PhD [address] [place] [address] Surgeon Surgical Oncology 11/22/17 Santiago Gilbert MD [address] [place] [address] Internal Controls Consultant Gastroenterology 11/22/17 Dmitry Sanderson MD [address] [place] [address] Referring Physician Colon and Rectal Surgery 12/03/1805/06 Abbi Ventura MD [address] [place] [address] [address] [place] [address] Medical Oncologist/Steak Tenderizer Machine Medical Oncology 12/03/18 Montse Thompson MD [address] [facility] [address] [place] [address] Consulting Physician Gynecologic Oncology 12/03/18 Lela Hardy MD PhD [address] [facility] [address] [place] [address] Radiation Oncologist Radiation Oncology 12/23/18 Aft, Kianna Machado MD PhD [address] [facility] [address] [place] [address] Surgeon Surgical Oncology 12/23/18 09/17/21 documented as of this encounter
--- OUTSIDE RECORDS SUMMARY | 2024-04-24 13:40 | XMS_ITS | Encounter Summary ---
Author Organization [facility] Address [address] [place] [address] Phone Care Team Providers Care Clinical Safety Specialist Name Role Phone Ravi Smith MD Primary Care Provider [phone] Aft, Kianna Machado MD PhD Unavailable [phone] Santiago Gilbert MD Unavailable [phone] Dmitry Sanderson MD Unavailable [phone] Abbi Ventura MD Unavailable Montse Thompson MD Unavailable Lela Hardy MD PhD Unavailable Aft, Kianna Machado MD PhD Unavailable [phone] Encounter Details Date Type Department Care Team (Late st Contact Info) Description 09/23/2020 Orders Only [facility] Oncology [address] [place] [address] Abbi Ventura MD [address] [facility] [address] [place] [address] 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 5.0 ng/mL Smokers: 0.0 ? 6.5 ng/mL Current interpretive data was last revised 2020. Blood specimen (specimen) 09/29/2020 12:05 PM CDT 09/29/2020 1:39 PM CDT us Abbi Ventura MD LAB BLOOD ORDERABLES Final Resul t [facility] Department [place] [address] * (ABNORMAL) Comprehensive metabolic panel (09/29/2020 12:05 PM CDT) [facility] Sodium 140 135 - 145 mmol/L [facility] Potassium, pl 4.0 3.3 - 4.9 mmol/L [facility] Chloride 104 97 - 110 mmol/L [facility] CO2 29 22 - 32 mmol/L [facility] Anion gap 7 2 - 15 mmol/L [facility] BUN 23 8 - 25 mg/dL [facility] Creatinine 1.45(H) 0.60 - 1.10 mg/dL [facility] Glucose 160 70 - 199 mg/dL [facility] Comment: Interpretive Data Fasting glucose >/= 126 [...] 2017. Calcium 9.6 8.5 - 10.3 mg/dL [facility] Bilirubin, total 0.6 0.1 - 1.2 mg/dL [facility] Protein, pl 6.9 6.5 - 8.5 g/dL [facility] Albumin 4.0 3.5 - 5.0 g/dL [facility] Alk phos 88 40 - 130 Units/L [facility] ALT 13 7 - 45 Units/L [facility] AST 22 10 - 45 Units/L [facility] Blood specimen (specimen) 09/29/2020 12:05 PM CDT 09/29/2020 12:12 PM CDT us Abbi Ventura MD LAB BLOOD ORDERABLES Final Resul t [facility] [place] [address] * CBC with auto differential (09/29/2020 12:05 PM CDT) WBC 7.5 3.8 - 9.9 K/cumm [facility] Hgb 12.2 11.9 - 15.5 g/dL [facility] Hct 37.2 35.6 - 45.5 % [facility] Plt 166 150 - 400 K/cumm [facility] MPV 9.8 9.1 - 12.3 fL [facility] RBC 3.93 3.90 - 5.20 M/cumm [facility] MCV 94.7 81.3 - 96.4 fL [facility] MCH 31.0 27.1 - 33.3 pg [facility] MCHC 32.8 32.3 - 35.7 g/dL [facility] RDW CV 12.8 11.1 - 14.9 % [facility] RDW SD 44.4 35.7 - 48.1 fL [facility] NRBC abs 0.00 0.00 - 0.01 K/cumm [facility] Blood specimen (specimen) 09/29/2020 12:05 PM CDT 09/29/2020 12:12 PM CDT us Abbi Ventura MD LAB BLOOD ORDERABLES Final Resul t [facility] [place] [address] documented in this encounter Visit Diagnoses Diagnosis 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)- Primary Malignant neoplasm 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, estrogen receptor negative (HCC) documented in this encounter Orders Appointment Requests Count Last Ordered Date Fi rst Ordered Date ONCBCN CLINIC APPOINTMENT REQUEST 1 021 ON[facility]N LAB APPOINTMENT 1 09/29/2020 documented in this encounter Care Teams Clinical Safety Specialist Relationship Specialty Start Date End Date Ravi Smith MD PCP - General 11/04/17 09/27/21 Aft, Kianna Machado MD PhD [address] [place] [address] Surgeon Surgical Oncology 11/22/17 Santiago Gilbert MD [address] [place] [address] Asbestos Pipe Supervisor Gastroenterology 11/22/17 Dmitry Sanderson MD [address] [place] [address] Referring Physician Colon and Rectal Surgery 12/03/1805/06 Abbi Ventura MD [address] [place], [place] [id number] Medical Oncologist/Bread And Pastry Baker Medical Oncology 12/03/18 Montse Thompson MD [address] [place] [address] Consulting Physician Gynecologic Oncology 12/03/18 Lela Hardy MD PhD [address] [place] [address] Radiation Oncologist Radiation Oncology 12/23/18 Aft, Kianna Machado MD PhD [address] [place] [address] Surgeon Surgical Oncology 12/23/18 09/17/21 documented as of this encounter
--- OUTSIDE RECORDS SUMMARY | 2024-04-24 13:40 | XMS_ITS | Encounter Summary ---
Author Organization [facility] [employer] [facility] Address [address] [place] [address] Phone Care Team Providers Care Advertising Operations Coordinator Name Role Phone Ravi Smith MD Primary Care Provider [phone] Aft, Kianna Machado MD PhD Unavailable Santiago Gilbert MD Unavailable [phone] Dmitry Sanderson MD Unavailable [phone] Abbi Ventura MD Unavailable Montse Thompson MD Unavailable [phone] Lela Hardy MD PhD Unavailable [phone] Aft, Kianna Machado MD PhD Unavailable [phone] Encounter Details Date Type Department Care Team (Late st Contact Info) Description 2020 Telephone [facility] Pulmonary [address] 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 that her CXR was clear, and that prescriptions for Flonase and Pepcid were sent to her pharmacy. Instructed her to call if she has no improvement. documented in this encounter Plan of Treatment Not on file documented as of this encounter Visit Diagnoses Not on filedocumented in this encounter Care Teams Advertising Operations Coordinator Relationship Specialty Start Date End Date Ravi Smith MD PCP - General 11/04/17 09/27/21 Aft, Kianna Machado MD PhD [address] [address] Surgeon Surgical Oncology 11/22/17 Santiago Gilbert MD [address] [address] Neurology Tech Gastroenterology 11/22/17 Dmitry Sanderson MD [address] [address] Referring Physician Colon and Rectal Surgery 12/03/1805/06 Abbi Ventura MD [address] [place] [address] [address] [address] Medical Oncologist/Sausage Cooker Medical Oncology 12/03/18 Montse Thompson MD [address] [facility] [address] [id number] Consulting Physician Gynecologic Oncology 12/03/18 Lela Hardy MD PhD [address] [facility] [address] [id number] Radiation Oncologist Radiation Oncology 12/23/18 Aft, Kianna Machado MD PhD [address] [facility] [address] [id number] Surgeon Surgical Oncology 12/23/18 09/17/21 documented as of this encounter
--- OUTSIDE RECORDS SUMMARY | 2024-04-24 13:40 | XMS_ITS | Encounter Summary ---
Author Organization [facility] Address [address] [place] [address] Phone Care Team Providers Care Roll Contour Grinder Name Role Phone Ravi Smith MD Primary Care Provider [phone] Aft, Kianna Machado MD PhD Unavailable [phone] Santiago Gilbert MD Unavailable [phone] Dmitry Sanderson MD Unavailable [phone] Abbi Ventura MD Unavailable Montse Thompson MD Unavailable [phone] Lela Hardy MD PhD Unavailable [phone] Aft, Kianna Machado MD PhD Unavailable [phone] Reason for Visit * Reason Comments OT Discharge OT Treatment * Consultation (Routine) - Closed Specialty Diagnoses / Procedures Referred By Contac t Referred To Contact Occupational Therapy Diagnoses 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) Abbi Ventura MD [address] [place] [address] Phone: tel: fax: [facility] [address] [place] [address] Phone: tel: fax: Referral ID Status Reason Start Date Expiration Date V isits Requested Visits Authorized [id number] Closed Specialty Services Required 12/24/2019 01/22/2021 24 37 Encounter Details Date Type Department Care Team (Late st Contact Info) Description 08/08/2020 9:00 AM CDT Therapy [facility] [address] [place] [address] Nat Loyd, OT [address] [place], [place] [id number] Executive function deficit (Primary Dx); Malignant neoplasm of descending colon (CMS/HCC) Social History Tobacco Use Types Packs/Day [...] on file 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 See Treatment note below for details of goals achieved. Reason for discharge: She has the tools and knowledge to continue to progress. Patient has largely met goals. Signature: ANNELIESE Cisse, OTR/L OT Treatment Note Aleah Gerber (1955) was seen for outpatient occupational therapy treatment in clinic on 08/08/2020 Subjective: Ct reports, I stopped buying ice cream sandwiches and I bought a FitBit. Falls: no Pain reported: no Phototypesetting Equipment Monitor present: No. NA Objective: Client participated in treatment session #14 x 55 minutes. Dietary Goals Action plan follow-up: Goal: Eat breakfast-- Ct reports that she still has not done this consistently Activity: Prepare grab and go recipe-- client prepared recipe, but has not continued to do this Comments: Client reports that she feels that she has been emotional eating and reports consumption of several sweet foods daily. Plan: Client will choose 1 positive, healthy choice to make throughout each day (ie: avoid afternoon sweet snack, replace soda with water, etc.), she will plan and prepare 1 healthy meal per week andreplace fruit for concentrated sweets once daily. Revisions: Changing schedule to get up earlier. Concern Addressed: Healthy Diet / Eating Habits Current Status: Client ordered clean eats for when her is out of town. Stopped eating outand has not had a soda in two weeks. Ct reports, I feel more energetic. It's good for my psyche. Idon't feel like I have to take a nap everyday. When she feels a craving, she finds a craft to do instead or moves. Fixing tea in a pretty cup. Daughter just had weight loss surgery and now ct has someone to hold accountable to. Spouse is not participating and she reports, I want to prove him wrong. OT Intervention: Client reports 9.5/10 satisfaction with healthy eating; discussed strategies to continuing and longevity with plan. Plan: Continue Concern Addressed: Cognitive Performance Current Status: I feel like you have given me the tools to make me a productive individual again. Cognitive tools currently being used: Word association. Stop first. Sorting things out and chunkingthings together. Making a list makes a difference. Taking a picture of my airport planner. Stopping before leaving home to make sure she has everything. Stopping in car to gather thoughts before going into the home is partially successful. Saying no to what others ask me to do and setting boundaries. Advocating for self. OT Intervention: Identification of times of transition as times when cognitive performance is particularly challenging to raise awareness and anticipation of need to incorporate cognitive strategies.Ct verbalized good understanding. PROMIS 57 Profile v2.1 was completed by client with the responses as noted below: Physical Function: 1. Are you able to do chores such as vacuuming or yard work? With some difficulty (3) 2. Are you able to go up and down stairs at a normal pace? With some difficulty (3) 3. Are you able to go for a walk of at least 15 minutes? With a little difficulty (4) 4. Are you able to run errands and shop? With a little difficulty (4) 5. Does your health now limit you in doing two hours of physical labor? Quite a lot (2) 6. Does your health now limit you in doing moderate work around the house like vacuuming, sweeping floors or carrying in groceries? Somewhat (3) 7. Does your health now limit you in lifting or carrying groceries? Somewhat (3) 8. Does your health now limit you in doing heavy work around the house like scrubbing floors, or lifting or moving heavy furniture? Quite a lot (2) Fatigue During the past 7 days... 9. I feel fatigued A little bit (2) 10. I have trouble starting things because I am tired A little bit (2) In the past 7 days... 11. How run down did you feel on average? A little bit (2) 12. How fatigued were you on average? A little bit (2) 13. How much were you bothered by your fatigue on average? A little bit (2) 14. To what degree did your fatigue interfere with your physical functioning? A little bit (2) 15. How often did you have to push yourself to get things done because of your fatigue? Somewhat (3) 16. How often did you have trouble finishing things because of your fatigue? Somewhat (3) Component T Scores: T-Score distributions are standardized such that a 50 represents the average (mean) for the [place] general population, and the standard deviation around that mean is 10 points. *Score for this construct indicates moderate or severe symptoms (>60) are indicated in Bold. Score between 55 and 60 indicate mild symptoms. Score for this construct indicates moderate or severe symptoms (<40) are indicated in Bold. Score between 40-45 indicate mild symptoms. Physical Function: 38.1 (37.5 at initial evaluation; improvement of .6) *Fatigue: 51.5 (63.3 at initial evaluation; improvement of 11.8) Assessment: Ct progressed very well and is using strategies to better manage her daily tasks and she demonstrates the knowledge and ability to determine her needs and a plan for accomplishing her goals using action planning as a strategy. Client's greatest improvement is the reduction in her overall fatigue level which was moderate to severe at initial evaluation and is now average upon discharge. Ct continues to experience physical function deficits, but has made adaptations and is beginning to incorporate exercise into her daily routine. No further skilled OT intervention indicated at this time. Goals: Goals for Occupational Therapy Intervention Goal Status / Date Updated Due by: STG1 Complete ADL/IADL/physical assessments to further guide POC and Goals -balance -SRSI / COPM Discontinued 02/18/20 STG2 Complete executive function assessment (WCPA) to further guide interventions and POC MET 01/29/20 STG3 Complete Cognitive Log x1 week and identify 2 barriers to remembering information MET 01/29/20 STG4 Client will use complete 2 action plans with >50% success using Dszp-[id number]-wg-[id number] cognitive strategy MET 01/29/20 STG5 Client will plan daily / weekly routine using energy conservation strategies with min cues follow education. MET 02/18/20 LTG1 Client will consistently use cognitive strategies to organize, plan, and follow-through with day/weekly tasks x2 weeks. MET 06/05/20 LTG2 Client will complete moderate complexity cognitive task using cognitive strategies and report >8/10 performance satisfaction MET 03/28/20 LTG3 Client will independently generate and complete Action Plan for 2 target IADL goals. MET 03/28/20 LTG4 Client will report decreased overall fatigue to levels within norm using PROMIS fatigue measure. MET 08/08/20 LTG5 Increase consumption of healthy choice dietary options to self-rated satisfaction level of 7/10 MET 08/08/20 LTG6 Client will use cognitive strategies to complete complex cognitive activity with >80% accuracy. Discontinued Plan: Discontinue OT Start Time: 904 End Time: 999 Signature: ANNELIESE Sosa, GUDELIAR/L documented in this encounter Plan of Treatment Not on file documented as of this encounter Visit Diagnoses Diagnosis Executive function deficit- Primary 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) Malignant neoplasm of descending colon documented in this encounter Care Teams Roll Contour Grinder Relationship Specialty Start Date End Date Ravi Smith MD PCP - General 11/04/17 09/27/21 AftKianna MD PhD [address] [place] [address] Surgeon Surgical Oncology 11/22/17 Santiago Gilbert MD [address] [place] [address] Obstetrics Nurse Practitioner Gastroenterology 11/22/17 Dmitry Sanderson MD [address] [place] [address] Referring Physician Colon and Rectal Surgery 12/03/1805/06 Abbi Ventura MD [address] [place] [address] [address] [place] [address] Medical Oncologist/Good Humor Vendor Medical Oncology 12/03/18 Montse Thompson MD [address] [place] [address] [address] [place] [address] Consulting Physician Gynecologic Oncology 12/03/18 Lela Hardy MD PhD [address] [place] [address] [address] [place] [address] Radiation Oncologist Radiation Oncology 12/23/18 AftKianna MD PhD [address] [place] [address] Surgeon Surgical Oncology 12/23/18 09/17/21 documented as of this encounter
--- OUTSIDE RECORDS SUMMARY | 2024-04-24 13:40 | XMS_ITS | Encounter Summary ---
Author Organization [facility] Address [address] [place] [address] Care Team Providers Care Diesel Dinkey Operator Name Role Phone Ravi Smith MD Primary Care Provider [phone] Aft, Kianna Machado MD PhD Unavailable Santiago Gilbert MD Unavailable [phone] Dmitry Sanderson MD Unavailable [phone] Abbi Ventura MD Unavailable Montse Thompson MD Unavailable [phone] Lela Hardy MD PhD Unavailable [phone] Aft, Kianna Machado MD PhD Unavailable [phone] Encounter Details Date Type Department Care Team (Late st Contact Info) Description 10/04/2020 Telephone [facility] Breast Imaging [facility] ([facility]) [address] [place] [id number] Daisha Menjivar, RT Social History Tobacco Use Types Packs/Day Years [...] on file 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 documented in this encounter Plan of Treatment Not on file documented as of this encounter Visit Diagnoses Not on filedocumented in this encounter Care Teams Diesel Dinkey Operator Relationship Specialty Start Date End Date Ravi Smith MD PCP - General 11/04/17 09/27/21 Aft, Kianna Machado MD PhD [address] [place] [address] Surgeon Surgical Oncology 11/22/17 Santiago Gilbert MD [address] [place] [address] Weaver Hand Gastroenterology 11/22/17 Dmitry Sanderson MD [address] [place] [address] Referring Physician Colon and Rectal Surgery 12/03/1805/06 Abbi Ventura MD [address] [place] [address] Medical Oncologist/Lettuce Trimmer Medical Oncology 12/03/18 Montse Thompson MD [address] [place] [address] Consulting Physician Gynecologic Oncology 12/03/18 Lela Hardy MD PhD [address] [place] [address] Radiation Oncologist Radiation Oncology 12/23/18 Aft, Kianna Machado MD PhD [address] [place], [place] [id number] Surgeon Surgical Oncology 12/23/18 09/17/21 documented as of this encounter
--- OUTSIDE RECORDS SUMMARY | 2024-04-24 13:40 | XMS_ITS | Encounter Summary ---
Author Organization [facility] Address [address] [place] [address] Phone Care Team Providers Care Hop Sorter Name Role Phone Ravi Smith MD Primary Care Provider [phone] Aft, Kianna Machado MD PhD Unavailable [phone] Santiago Gilbert MD Unavailable [phone] Dmitry Sanderson MD Unavailable [phone] Abbi Ventura MD Unavailable Montse Thompson MD Unavailable [phone] Lela Hardy MD PhD Unavailable [phone] Aft, Kianna Machado MD PhD Unavailable [phone] Reason for Referral * Consultation (Routine) - Closed Specialty Diagnoses / Procedures Referred By Contac t Referred To Contact Endocrinology Diagnoses Type 2 diabetes mellitus with other kidney complication, unspecified whether alf insulin use (HCC) Lizbeth May MD [address] [facility] [address] [place] [address] Phone: tel: fax: [facility] (All Locations) Referral ID Status Reason Start Date Expiration Date V isits Requested Visits Authorized [id number] Closed Specialty Services Required 10/14/2020 11/13/2021 99 99 Question Answer Please select the performing region: [facility] (All Locations) [167] # of visits: 1 * Diagnostic Imaging (Routine) - Closed Specialty Diagnoses / Procedures Referred By Vijaya simpson Referred To Contact Diagnoses Leg weakness, bilateral Procedures US Arterial Doppler Lower Extremity Exercise Lizbeth May MD [address] [place] [address] Phone: tel: fax: [facility] (All Locations) Referral ID Status Reason Start Date Expiration Date Visits Re quested Visits Authorized [id number] Closed 10/14/2020 11/13/2021 1 1 Reason for Visit * Consultation (Routine) - Closed Specialty Diagnoses / Procedures Referred By Vijaya simpson Referred To Contact Rheumatology Diagnoses Effusion of joint, unspecified location Ravi Smith MD Phone: tel: fax: [facility] (All Locations) Referral ID Status Reason Start Date Expiration Date V isits Requested Visits Authorized [id number] Closed Specialty Services Required 09/27/2020 10/27/2021 1 1 Encounter Details Date Type Department Care Team (Late st Contact Info) Description 10/14/2020 9:00 AM CDT Office Visit [facility] [address] 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 Gender Identity Not on file Sexual Orientation Not on file documented as of this encounter Last Filed Vital Signs Vital Sign Reading Time Taken Comments Blood Pressure 160/79 10/14/2020 8:23 AM CDT Pulse 75 10/14/2020 8:23 AM CDT Temperature 36.6 ??C (97.9 ??F) 10/14/2020 8:23 AM CD T Respiratory Rate - - Oxygen Saturation - - Inhaled Oxygen Concentration - - Weight 112.5 kg (248 lb) 10/14/2020 8:23 AM CDT Height 175.3 cm (5' 9 ) 10/14/2020 8:23 AM CDT Body Mass Index 36.62 10/14/2020 8:23 AM CDT documented in this encounter Progress Notes * Lizbeth May MD - 10/14/2020 9:00 AM CDT 10/14/2020 RHEUMATOLOGY Requesting Provider:Abbi Ventura Reason for consult:Diffuse pain HISTORY OF PRESENT ILLNESS: Aleah Gerber is a 65 y.o.year old female is seen today for evaluation of possible connective tissue disease as etiology of diffuse body pain and dysesthesias. 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 She has been treated with a laparoscopic left hemicolectomy 12/27/2017 and FOLFOX initiated with reaction to oxaliplatin which was discontinued in 04/2018. Breast cancer diagnosed after core biopsy of the left breast mass which was triple negative and treated with AC chemotherapy due to her neuropathy. She had partial mastectomy and adjuvant radiation therapy. She is BRCA positive. Medical comorbidities include VIOLETTE, hypertension, hyperlipidemia, type 2 diabetes mellitus with renal insufficiency over the last year with serum creatinine ranging 1.15-1.52. COPD she with pulmonary emboli in June 2018. Recent evaluation on 10/06/2020 included a bone scan that showed degenerative uptake in the bilateral shoulders, elbows, sternoclavicular joints and thoracic spine with body CT demonstrating cortical atrophy in the right kidney, atherosclerosis of the abdominal aorta and its branches. Sheis currently on both gabapentin 300 mg t.i.d. and duloxetine 60 mg daily. Following her reaction tooxaliplatin, she was evaluated by Dr. Obando in Neurology with negative ZENA, IgG depressed to 425 mg, normal CPK and aldolase levels.. Nerve conduction tests were entirely normal. She had mild multilevel degenerative disc disease on MRI of her cervical and thoracic spine. She only has sx of pain in her midfeet. She received J and J 07/12 . She notes onset of lymph node swelling in her neck about 7-10 days late which were painful with chewing. She noted a nodule lower ant cervical region on R. Vaccine given onL.She then developed pins and needles in multiple regions. Currently she notes pruritus in palms with dysesthesias in finger tips and toes, calves behind knees , thighs, front and back. New onset STOUT in August in occipital region with tight cap feeling.No Am stiffness except occasionally R hand whereit feels whole hand swells.She has had episodes of halos following an episode of L field cut on os. 1 yr ago her PCP started her on duloxetine for generalized pain which worked and gabapentin did nothelp as much.However recently it was restarted and has been helpful. She stopped all diabetic therapy in September. +NONrestorative sleep and not wearing CPAP ALLERGIES: Allergies Allergen Reactions ??? Oxaliplatin Swollen tongue Throat swelling ??? Tetanus Vaccines And Toxoid Swelling and Rash CURRENT MEDICATION: Current Outpatient Medications: ??? ALPRAZolam (XANAX) 0.25 mg tablet, Take 0.25 mg by mouth 3 (three) times a day as needed for anxiety , Disp: , Rfl: ??? atorvastatin (LIPITOR) 20 mg tablet, Take 20 mg by mouth nightly , Disp: , Rfl: 0 ??? DULoxetine DR (CYMBALTA) 60 mg capsule, Take 60 mg by mouth daily, Disp: , Rfl: ??? fluticasone propion-salmeteroL (ADVAIR DISKUS) 500-50 mcg/dose diskus inhaler, Inhale 1 puff 2 (two) times a day Rinse mouth with water after use. Do not swallow., Disp: 60 each, Rfl: 5 ??? gabapentin (NEURONTIN) 300 mg capsule, TAKE 1 CAPSULE BY MOUTH THREE TIMES DAILY, Disp: 90 capsule, Rfl: 2 ??? hydroCHLOROthiazide (HYDRODIURIL) 12.5 mg tablet, Take 12.5 mg by mouth every morning , Disp: ,Rfl: 0 ??? propranolol LA (INDERAL LA) 60 mg 24 hr capsule, TK 1 C PO D, Disp: , Rfl: ??? psyllium 0.52 gram capsule, Take 0.52 g by mouth 2 (two) times a day, Disp: , Rfl: Patient Active Problem List Diagnosis ??? Malignant neoplasm of upper-inner quadrant of left breast in female, estrogen receptor negative(CMS/HCC) ??? Malignant neoplasm of descending colon (CMS/HCC) ??? Dehydration ??? Hypokalemia ??? Diarrhea ??? Leg weakness, bilateral ??? Acute pulmonary embolism (CMS/HCC) ??? Encounter for person encountering health services ??? Antineoplastic chemotherapy induced anemia ??? Drug-induced polyneuropathy (CMS/HCC) ??? Gait difficulty ??? Nipple discharge in female ??? Hypomagnesemia ??? BRCA2 gene mutation positive in female ??? Atypical glandular cells of undetermined significance (YRN) on cervical Pap smear ??? Chronic obstructive pulmonary disease (CMS/HCC) ??? Encounter for follow-up examination after completed treatment for malignant neoplasm ??? History of breast cancer ??? Personal history of irradiation ??? VIOLETTE (obstructive sleep apnea) ??? Asthma ??? Amaurosis fugax ??? Essential hypertension ??? Hyperlipidemia Past Medical History: Diagnosis Date ??? Anemia [...] Breast Needle Localization partial mastectomy (L), Biopsy [place] Lymph Node With Lymphoscintigraphy (L), Insertion Port A Cath (R) with ultrasound and fluroscopy ??? OOPHORECTOMY ??? PORTACATH PLACEMENT 01/2018 right upper chest ??? PORTACATH PLACEMENT Right 2017 ??? TUBAL LIGATION 1991 ??? VAGINAL DELIVERY REVIEW OF SYSTEMS: Review of Systems Constitutional: Positive for diaphoresis (night sweats), fatigue and unexpected weight change (weight gain). Negative for chills and fever. HENT: Not utilizing CPAP as did not like current mask and felt she got congested from it Eyes: Negative. Respiratory: Positive for apnea. COPD, sleep apnea, dyspnic with exertion, sees Dr Felder Cardiovascular: Positive for palpitations. Gastrointestinal: Negative. Colon CA s/p surgical excision Endocrine: Stopped all diabetic meds 6 weeks ago as too expensive Genitourinary: Negative. Skin: Positive for color change (fixed in toes, feet). PHYSICAL EXAM: Vitals BP 160/79 Pulse 75 Temp 36.6 ??C (97.9 ??F) Ht 175.3 cm (5' 9 ) Wt 112.5 kg (248 lb) LMP (LMP Unknown) BMI 36.62 kg/m?? Physical Exam Overweight WF Skin acrocyanosis feet, toe tips without ischemic skin HEENT-conjunctivae clear, lichen planus mucosal ridge, small shotty ant cervical LN, +UPJ Lungs clear Cor S1S2 without murmurs, g or rubs Abdomen Obese, no HSM Extrem without edema MSK + trigger points epicondyles, ant chest wall, greater tuberosities, neg at post chest, medial knees. Minimal OA changes DIP, knees. No synovitis in standard 28 jt count Neuro-Brisk symmetric reflexes biceps, brachioradialis, knees, ankles. No focal motor weakness. subjectve stocking glove sensory loss as well as migratory dysesthesias Peripheral Vascular-poorly palpable distal pulses in Dp, PT LABORATORY DATA: Laboratory review: Chemistry CMP: Lab Results Component Value Date ALBUMIN 4.0 09/29/2020 BUNSER 23 09/29/2020 BUNSER 20 01/06/2020 CALCIUM 9.6 09/29/2020 CALCIUM 8.9 01/06/2020 CO2 29 09/29/2020 CO2 26 01/06/2020 CHLORIDE 104 09/29/2020 CHLORIDE 104 01/06/2020 CREATININE 1.45 (H) 09/29/2020 CREATININE 1.16 (H) 01/06/2020 GLUCOSE 160 09/29/2020 GLUCOSE 149 (H) 01/06/2020 POTASSIUM 4.0 09/29/2020 POTASSIUM 3.9 01/06/2020 SODIUM 140 09/29/2020 SODIUM 139 01/06/2020 BILITOT 0.6 09/29/2020 PROT 6.9 09/29/2020 PROTSER 7.0 10/14/2020 ALT 13 09/29/2020 AST 22 09/29/2020 ALKPHOS 88 09/29/2020 , CBC: Lab Results Component Value Date WBC 7.5 09/29/2020 RBC 3.93 09/29/2020 HGB 12.2 09/29/2020 HCT 37.2 09/29/2020 MCV 94.7 09/29/2020 MCH 31.0 09/29/2020 MCHC 32.8 09/29/2020 RDWCV 12.8 09/29/2020 RDWSD 44.4 09/29/2020 MPV 9.8 09/29/2020 NRBCABS 0.00 09/29/2020 Lab Results Component Value Date CRP 11.8 (H) 10/14/2020 IMAGING: No images are attached to the encounter. ASSESSMENT AND PLAN: 65 yr old WF with BRACA2 breast and colon cancer in remission with suboptimal controlled diabetes mellites, VIOLETTE presents today with diffuse myofascial pain, migratory dysesthesias as well as fixed stocking glove dysesthesias in setting of peripheral claudication, recent CT with evidence of atherosclerotic aortic disease. Prior hx DVT/PE. Problem List Items Addressed This Visit Leg weakness, bilateral - Primary Relevant Orders US Arterial Doppler Lower Extremity Exercise Other Visit Diagnoses Paresthesia Relevant Orders Hemoglobin A1c (Completed) Neuromuscular Testing ([facility]) ZENA qualitative with reflex to ZENA Quantitative Anti-phospholipid screen (Completed) Protein Electrophoresis, With Reflex, Serum (Completed) CRP (acute phase) (Completed) Type 2 diabetes mellitus with other kidney complication, unspecified whether mission coordinator insulin use ([facility]) Relevant Orders Hemoglobin A1c (Completed) Ambulatory referral to Endocrinology Albumin Creatinine Ratio, Urine (Completed) One) serologic evaluation to assess presumptive small fiber neuropathy associated with fibromyalgiawith ZENA, antiphospholipids(hx PE), C reactive protein, SPEP and [facility] panel for sensory neuropathy Two) arterial Dopplers to evaluate symptoms of thigh claudication in the setting diffuse acrocyanosis of the feet with objective evidence of aortic atherosclerosis and multiple risk factors Three) hemoglobin A1c with endocrine evaluation to optimize diabetic treatment in this patient withmetabolic syndrome, 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 as well as renal insufficiency, needs check for microalbuminuria Four) we discussed that she is on treatment for her neuropathic symptoms with duloxetine and gabapentin which has to be balanced against the potential weight gain; at this time, she finds these tolerable and I would encourage swimming at this time since her walking is limited with her lower extremity symptoms Five) I have asked her to discuss with sleep medicine her inabilities to wear her current CPAP maskas attempting to have restorative sleep will greatly improve her fibromyalgia symptoms 6) she has previous scheduled neuro eval as well and may benefit from repeat NCT's to distinguish documented in this encounter Plan of Treatment Scheduled Referrals Name Type Priority Associated Diagnoses Order Schedule Ambulatory referral to Endocrinology Outpatient Referral Routine Type 2 diabetes mellitus with other kidney complication, unspecified whether alf insulin use ([facility]) Expected: 10/28/2020 (Approximate), Expires: 10/14/2021 documented as of this encounter Results * US Arterial Doppler Lower Extremity Exercise (10/25/2020 10:08 AM CDT) Anatomical Region Laterality Modality Vascular N/A Ultrasound 10/25/2020 8:27 AM CDT Narrative 10/25/2020 4:[address] [facility] - Department of Vascular Surgery, Vascular Laboratory [address] [place] [address] Lower Extremity Arterial Doppler Report Patient Name: ALEAH GERBER A : 1955 Study Date: 10/25/2020 8:27:00 AM Gender: F Tech: Uzma Preston [facility] Location: [facility] Ref.Provider: LIZBETH MAY Quality: Adequate Order Provider: LIZBETH MAY Procedures: Arterial Report: Bilateral lower extremity arterial Doppler exam at rest and with treadmill exercise. Indications: Leg weakness, bilateral Intermittent Claudication. Measurements: Right - ?Left - ? Measurement ?Value ?Units ?Measurement ?Value ?Units ? Rt Brachial Pressure ? 169 ?mmHg ? Lt Brachial Pressure ? 171 ?mmHg ? Rt LATHE TURNER Pressure ?193 ?mmHg ? Lt LATHE TURNER Pressure ?184 ?mmHg ? Rt DPA Pressure [...] - ?Left - ? - Findings: Performing Criminal Defense Lawyer: Uzma Preston RVT. Bilateral All Levels : [...] performed. Electronically Signed By: Kavon Lawson MD [facility] [phone] 2020-10-25 16:35:51 CDT CC: CC: Procedure Note Kavon Lawson MD - 10/25/[address] [facility] - Department of Vascular Surgery,Vascular Laboratory [address] [place] [address] Lower Extremity Arterial Doppler Report Patient Name: ALEAH GERBER APatient ID: [id number] : [id number] Date: 10/25/2020 8:27:00 AM Gender: FAccession #: [id number] Tech: Uzma Preston RVTLocation: [facility] Ref.Provider: LIZBETH MAYQuality: Adequate Order Provider: LIZBETH MAY Procedures: Arterial Report: Bilateral lower extremity arterial Doppler exam at rest and with treadmillexercise. Indications: Leg weakness, bilateral Intermittent Claudication. Measurements: Right - Left - Measurement Value Units Measurement ValueUnits Rt Brachial Pressure 169 mmHg Lt Brachial Pressure 171mmHg Rt LATHE TURNER Pressure 193 mmHg Lt LATHE TURNER Pressure 184mmHg Rt DPA Pressure 189 mmHg Lt DPA Pressure 173mmHg Rt 1st Digit Pressure 123 mmHg Lt 1st Digit Pressure 130mmHg Rt PT NEIDA Resting 1.13 Lt PT NEIDA Resting 1.08 Rt AT NEIDA Resting 1.11 Lt AT NEIDA Resting 1.01 Rt Digit/Arm Index 0.72 Lt Digit/Arm Index 0.76 Measurement Value Units Measurement ValueUnits Right - Left - - Findings: Performing Criminal Defense Lawyer: Uzma Preston RVT. Bilateral All Levels : [...] performed. Electronically Signed By: Kavon Lawson MD [facility] [phone] 2020-10-25 16:35:51 CDT CC: CC: Lizbeth May MD IMG US PROCEDURES Final Resu lt * (ABNORMAL) CRP (acute phase) (10/14/2020 10:22 AM CDT) CRP 11.8(H) <=10.0 mg/L [facility] PEÑALOZA Blood specimen (specimen) 10/14/2020 10:22 AM CDT 10/14/2020 12:37 PM CDT Lizbeth May MD LAB BLOOD ORDERABLES Final R esult LEVAR PEÑALOZA Madelyn [facility] Department [place] [address] * Protein Electrophoresis, With Reflex, Serum (10/14/2020 10:22 AM CDT) [facility] Protein, sr 7.0 6.2 - 8.2 g/dL [facility] Albumin 4.5 3.2 - 5.0 g/dL [facility] Alpha-1 globulin 0.3 0.2 - 0.4 g/dL [facility] Alpha-2 globulin 0.8 0.5 - 1.0 g/dL [facility] Beta-1 globulin 0.4 0.3 - 0.6 g/dL [facility] Beta-2 globulin 0.4 0.2 - 0.6 g/dL [facility] Gamma globulin 0.6 0.5 - 1.7 g/dL [facility] SPEP interp Please see comment [facility] Comment:No apparent monoclon al peak Blood specimen (specimen) 10/14/2020 10:22 AM CDT 10/14/2020 12:37 PM CDT us Lizbeth May MD LAB BLOOD ORDERABLES Final R esult LEVAR MICHELLE [facility] [place] [address] * Anti-phospholipid screen (10/14/2020 10:22 AM CDT) [facility] Cardiolipin, IgG <1.6 <=19.9 GPL U/mL [facility] Comment: Interpretive Data Negative: <20 GPL U/mL [...] MARY. These results were obtained with the [employer] BioPlex 2200 System. Cardiolipin IgG values obtained with different manufacturers' assay methods may not be used interchangeably. Current interpretive data was last revised on 2016. Cardiolipin, IgM 1.1 <=19.9 MPL U/mL [facility] Comment: Interpretive Data Negative: <20 MPL U/mL [...] antibodies. ??These results were obtained with the [employer] BioPlex 2200 System. Cardiolipin IgM values obtained with different manufacturers' assay methods may not be used interchangeably. Current interpretive data was last revised on 2016. Beta-2 glycoprotein I, IgG <1.4 <=19.9 units/mL [facility] MICHELLE Comment: Interpretive Data Negative: <20 U/mL Positive: > or = 20 U/mL ? Beta-2 glycoprotein 1 (Beta-2 GP1) antibodies are a more specific marker of thrombotic risk. It is expected that some samples will be ACL positive and Beta- 2 [id number]. In order to improve specificity, the International Congress on Antiphospholipid Antibodies recommends Beta-2 GP1 antibodies of IgG or IgM isotype ??(> the 99th percentile), obtained twice, at least 12 weeks apart, to support a diagnosis of antiphospholipid syndrome. The cutoff for this assay was developed from data based on the 99th percentile. These results were obtained with the [employer] BioPlex 2200 System. Beta 2GP1 IgG values obtained with different manufacturers' assay methods may not be used interchangeably. Current interpretive data was last revised on 2016. Beta-2 glycoprotein I, IgM 1.0 <=19.9 units/mL [facility] Comment: Interpretive Data Negative: <20 U/mL Positive: [...] factor. ??These results were obtained with the [employer] BioPlex 2200 System. Beta-2 GP1 IgM values obtained with different manufacturers' assay methods may not be used interchangeably. Current interpretive data was last revised on 2016. Blood specimen (specimen) 10/14/2020 10:22 AM CDT 10/14/2020 12:37 PM CDT us Lizbeth May MD LAB BLOOD ORDERABLES Final R esult LEVAR PEÑALOZA One [facility] Department [place] [address] * ZENA qualitative with reflex to ZENA Quantitative (10/14/2020 10:22 AM CDT) ZENA Negative [facility] Comment: Interpretive Data Normal range for ZENA [...] ORDERABLES Final R esult Performing Organization Address City/[facility] Co de Phone Number LEVAR Joshi [facility] Department [place] [address] * (ABNORMAL) Albumin Creatinine Ratio, Urine (10/14/2020 10:22 AM CDT) Microalb, Ur 23.5(H) 0.0 - 22.9 mg/L [facility] Random Urine Creatinine 121.8 mg/dL [facility] Microalb/Creat Ratio 19.3 0.0 - 29.9 mg/g [facility] Urine 10/14/2020 10:2 2 AM CDT 10/14/2020 12:02 PM CDT Lizbeth May MD LAB URINE ORDERABLES Final R esult [facility] * (ABNORMAL) Hemoglobin A1c (10/14/2020 10:22 AM CDT) HbA1c 6.6(H) 5.1 - 5.6 % [facility] Comment: HBA1C 5.1 - 5.6 = NORMAL HBA1C 5.7 - 6.4 = PREDIABETES HBA1C >=6.5 = PROVISIONAL DIAGNOSIS OF DIABETES Estimated Average Glucose 143 mg/dL [facility] Blood specimen (specimen) 10/14/2020 10:22 AM CDT 10/14/2020 12:02 PM CDT us Lizbeth May MD LAB BLOOD ORDERABLES Final R esult [facility] documented in this encounter Visit Diagnoses Diagnosis Leg weakness, bilateral- Primary Muscle weakness (generalized) Paresthesia Disturbance of skin sensation Type 2 diabetes mellitus with other kidney complication, unspecified whether alf insulin use (HCC) Effusion of joint, unspecified location Leg weakness, bilateral Muscle weakness (generalized) documented in this encounter Discontinued Medications Medication Sig Discontinue Reason Start Date End Da te famotidine (PEPCID) 20 mg tablet Take 1 tablet (20 mg total) by mouth 2 (two) times a day 07/26/2020 10/14/2020 fluticasone propionate (FLONASE) 50 mcg/actuation nasal spray Administer 2 sprays into each nostril daily 07/26/2020 10/14/2020 albuterol HFA (PROVENTIL HFA,VENTOLIN HFA,PROAIR HFA) 90 mcg/actuation inhalerIndications:Acu te Asthma Attack Inhale 2 puffs every 6 (six) hours as needed for wheezing 12/16/2019 10/14/2020 sitaGLIPtin-metformin (JANUMET XR) 100-1,000 mg tablet, ER multiphase 24 hrIndications:type 2 diabetes mellitus Take 1 tablet by mouth daily with dinner 10/14/2020 Trulicity 1.5 mg/0.5 mL pen injector 07/02/2020 10/14/2020 Bydureon BCise 2 mg/0.85 mL auto-injector INJECT 2MG UNDER THE SKIN EVERY WEEK 08/03/2020 10/14/2020 dulaglutide (TRULICITY) 0.75 mg/0.5 mL pen injectorIndications:ty pe 2 diabetes mellitus,saturday Inject 0.75 mg under the skin every 7 days Saturday10/14/2020 documented as of this encounter Historical Medications * This list may reflect changes made after this encounter. psyllium 0.52 gram capsule Take 0.52 g by mouth 2 (two) times a day 10/25/2020 added in this encounter Orders Outpatient Referral Count Last Ordered Date Fir st Ordered Date AMB REFERRAL TO RHEUMATOLOGY 1 11/30/2020 documented in this encounter Care Teams Hop Sorter Relationship Specialty Start Date End Date Ravi Smith MD PCP - General 11/04/17 09/27/21 AftKianna MD PhD [address] [place] [address] Surgeon Surgical Oncology 11/22/17 Santiago Gilbert MD [address] [place] [address] Health Science Writer Gastroenterology 11/22/17 Dmitry Sanderson MD [address] [place] [address] Referring Physician Colon and Rectal Surgery 12/03/1805/06 Abbi Ventura MD [address] [place] [address] [address] [place] [address] Medical Oncologist/Security Dispatcher Medical Oncology 12/03/18 Montse Thompson MD [address] [facility] [address] [place] [address] Consulting Physician Gynecologic Oncology 12/03/18 Lela Hardy MD PhD [address] [place] [address] Radiation Oncologist Radiation Oncology 12/23/18 Aft, Kianna Machado MD PhD [address] [facility] [address] [place], [place] [id number] Surgeon Surgical Oncology 12/23/18 09/17/21 documented as of this encounter
--- OUTSIDE RECORDS SUMMARY | 2024-04-24 13:40 | XMS_ITS | Encounter Summary ---
Author Organization [facility] Address [address] [place] [address] Phone Care Team Providers Care Computer Technical Support Specialist Name Role Phone Hugo Smith MD Primary Care Provider [phone] Aft, Tony Machado MD PhD Unavailable [phone] Robert Soriano MD Unavailable [phone] Nicole López MD Unavailable [phone] Birdie Ventura MD Unavailable Montse Carter MD Unavailable [phone] Nilson Lopez MD PhD Unavailable [phone] Aft, Tony Machado MD PhD Unavailable [phone] Reason for Referral * (Routine) - Closed Specialty Diagnoses / Procedures Referred By Contac t Referred To Contact Diagnoses Moderate persistent asthma, unspecified whether complicated Procedures Pulmonary Function Test -[facility]- [facility]; Spirometry, Oxygen Assessment Titration Cristobal Dong MD [address] [place] [address] Phone: tel: fax: Referral ID Status Reason Start Date Expiration Date Visits Re quested Visits Authorized [id number] Closed 07/26/2020 08/25/2021 1 1 * Diagnostic Imaging (Routine) - Closed Specialty Diagnoses / Procedures Referred By Vijaya simpson Referred To Contact Diagnoses Moderate persistent asthma, unspecified whether complicated Procedures XR Chest Pa Lateral 2 Views Cristobal Dong MD [address] [place] [address] Phone: tel: fax: [address] [phone] Referral ID Status Reason Start Date Expiration Date Visits Re quested Visits Authorized [id number] Closed 07/26/2020 08/25/2021 1 1 * (Routine) - Closed Specialty Diagnoses / Procedures Referred By Vijaya simpson Referred To Contact Diagnoses Irregular heart beat Procedures ECG 12 lead Cristobal Dong MD [address] [place] [address] Phone: tel: fax: [address] [phone] Referral ID Status Reason Start Date Expiration Date Visits Re quested Visits Authorized [id number] Closed 07/26/2020 08/25/2021 1 1 Encounter Details Date Type Department Care Team (Late st Contact Info) Description 07/26/2020 2:00 PM CDT Office Visit [facility] Pulmonary [address] [facility] 8th [place] [address] [place] [id number] Cristobal Dong MD [address] [place] [address] Moderate persistent asthma, unspecified whether complicated (Primary Dx); Irregular heart beat Social History Tobacco Use Types Packs/Day Years [...] on file 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 Gender Identity Not on file Sexual Orientation Not on file documented as of this encounter Last Filed Vital Signs Vital Sign Reading Time Taken Comments Blood Pressure 133/78 07/26/2020 1:33 PM CDT Pulse 83 07/26/2020 1:33 PM CDT Temperature 36.2 ??C (97.1 ??F) 07/26/2020 1:33 PM CD T Respiratory Rate 20 07/26/2020 1:33 PM CDT Oxygen Saturation 96% 07/26/2020 1:33 PM CDT Inhaled Oxygen Concentration - - Weight 109.8 kg (242 lb) 07/26/2020 1:33 PM CDT Height 175.3 cm (5' 9 ) 07/26/2020 1:33 PM CDT Body Mass Index 35.74 07/26/2020 1:33 PM CDT documented in this encounter Ordered Prescriptions Prescription Sig Dispense Quantity Refills Last Filled Start Date End Date famotidine (PEPCID) 20 mg tablet Take 1 tablet (20 mg total) by mouth 2 (two) times a day 60 tablet 5 07/26/2020 1 fluticasone propionate (FLONASE) 50 mcg/actuation nasal spray Administer 2 sprays into each nostril daily 16 g 6 07/26/2020 1 fluticasone propion-salmeteroL (ADVAIR DISKUS) 500-50 mcg/dose diskus inhaler Inhale 1 puff 2 (two) times a day Rinse mouth with water after use. Do not swallow. 60 each 5 07/26/2020 2 documented in this encounter Progress Notes * Cristobal Dong MD - 07/26/2020 12:00 AM CDT PATIENT NAME: ALEAH GERBER : 1955 FARHAT: 07/26/2020 PROBLEM LIST: 1. Mild persistent asthma. a. Positive methacholine challenge test March 2019. 2. Obstructive sleep apnea on APAP. 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 [...] 9. Diverticulitis. 10. Status post hysterectomy. INTERVAL HISTORY: Ms. Gerber is a very pleasant 64-year-old female who [facility] a [facility] of mild persistent asthma. Since last being seen, she denies any hospitalizations, primary care or emergency room visits for any complaints. In addition, she denies any exacerbations. She presents today and denies any shortness of breath at rest. With respect to dyspnea on exertion, she has minimal with dressing, [id number] with showering, and moderate with housework. She notices significant shortness of breath when carrying, such as taking in heavy groceries from her car to the house. She has a flight of stairs at home and can walk up without stopping but does develop shortness of breath close to the top. She denies any cough. She has rhinitis with occasional postnasal drainage. She ishaving complaints of GERD, approximately 3 to 4 times a week. This is new. She wheezes often, both at rest and with exertion, and in addition at night. She denies any fevers or chills. She denies anynausea or vomiting, and has longstanding diarrhea. She is complaining of night sweats. She denies any change in taste or smell. Her weight is stable, and appetite is good. She denies any skin rashes.She denies any palpitations or syncope. Ms. Gerber does have obstructive sleep apnea and has a CPAPprescribed. She has not worn it in approximately 1 month, as she feels she sleeps better without it. MEDICATIONS: 1. Acetaminophen p.r.n. 2. Albuterol 2 puffs q.i.d. p.r.n., which she has not used since seeing us. 3. Atorvastatin. 4. Trulicity. 5. Cymbalta as needed. 6. Advair 250/50 one puff b.i.d. 7. Gabapentin. 8. Hydrochlorothiazide. 9. Ativan p.r.n. 10. Vitamin B12. 11. Propranolol. 12. Janumet. PHYSICAL EXAMINATION: Vital Signs: Blood pressure 133/78, heart rate 83 and regular, respiratory rate 16, no distress on room air, temperature is 97.1, SpO2 is 96% on room air. Weight is 242 pounds, which is up by 6 pounds since 03/23/2020, and BMI is 35.7. Head And Neck: Pupils are equal and reactive to light, extraocular motion intact. There is mild rhinitis with mild granular pharyngitis. No sinusitis or conjunctivitis. Trachea is central. There is no jugular venous distention. No significant cervical or supraclavicular lymphadenopathy. No stridornoted. Respiratory: Normal to percussion bilaterally. Good breath sounds bilaterally, without wheezes or crackles. Cardiovascular: Regular rate. There is an irregular rhythm with what feels like PACs on palpation. No murmurs, rubs, or gallops. Abdomen: Overweight. Soft, nontender, nondistended, with normoactive bowel sounds. Extremities: No clubbing, cyanosis, or edema. Good peripheral pulses and perfusion. LABORATORY DATA: 1. Pulmonary function tests: FEV1 is 1.91 L (66% predicted), and FVC is 2.38 L (64% predicted), alexander FEV1 to FVC ratio of 80. Flows are normal at all lung volumes. On the basis of these pulmonary function tests, there is a moderate restrictive ventilatory defect. Compared with pulmonary function dated 12/01/2019, there has been significant interval worsening of the restrictive pattern. Weight at the time of the previous PFTs was 232 pounds. 2. Six-minute walk: On room air at rest, SpO2 is normal, and with effort sufficient to increase heart rate from 77 to 112, it remains stable. On this basis, there is no requirement for supplemental oxygen either at rest or with exertion. There is no significant change in postexercise FEV1 or blood pressure. Of note, the patient walked 1170 feet. At her last test, she did 1855 feet. Today, she hadno stops, but she was complaining of hip pain with her walk due to neuropathy. 3. Chest CT of the abdomen and pelvis, from 04/19/2020, was reviewed and compared with the prior dated 05/04/2019. Lungs are clear without consolidation, effusion, or pneumothorax. There is no interstitial lung disease. No pulmonary nodules are noted. There is no supraclavicular, axillary, or mediastinal lymphadenopathy. Heart size is within normal limits. There is no pericardial effusion. ASSESSMENT: Ms. Gerber is a very pleasant 64-year-old female, who [facility] for previouslymild persistent asthma. She presents today with a significant decrease in her spirometry, although in a restrictive pattern. Chest CT from approximately 3 months ago was completely normal, and her exam is without any evidence of an asthma exacerbation or other concerning findings. Of note, she doeshave an irregular heart rhythm, but she is completely asymptomatic. She is complaining of significant wheezing, including nocturnal symptoms. PLAN: 1. Asthma. Given her worsening pulmonary function tests and complaints of significant wheezing, I would like to increase her Advair to 50/500 one puff b.i.d. She can continue using appear on albuterol. I would also like to obtain a chest x-ray today, to make sure that I am not missing any pathology. There is no indication for steroids based on today's examination. 2. Rhinitis. Ms. Gerber is having rhinitis and does have evidence of granular pharyngitis. Despite the absence of cough, this may be exacerbating her asthma. I would like to treat with Flonase one spray to each nostril at night, to see if it helps. 3. GERD. Ms. Gerber is complaining of new onset of GERD. I would like to treat this with an H2 nathalia b.i.d. for 4 weeks, to see if it would result in any significant improvement. 4. Obstructive sleep apnea. I encouraged Ms. Gerber to wear her CPAP. She does have follow-up with Dr. Jose delacruz. 5. Irregular heart rate. An EKG will be obtained today. This is most likely PACs, but I would like to confirm. 6. Return office visit will be in 6 months, or sooner if the need arises. We will contact her with the results of her testing. ADDENDUM: An EKG was performed today in clinic. This shows normal sinus rhythm with frequent PACs. There are no ischemic changes. CXR was reviewed and compared with prior dated dated 02/05/2019. There has been interval removal of a right-sided port catheter. No focal consolidation, pleural effusion, or pneumothorax. The cardiomediastinal silhouette is within normal limits. ELECTRONICALLY SIGNED - 2020 11:21 AM Cristobal Dong M.D. interactive media marketing specialist /lw cc: BIRDIE VENTURA M.D. [address] [place], [place] [id number] MONTSE CARTER MD [facility] Gynecological Oncology [address] [facility], [facility] [address] [place] [address] NICOLE LÓPEZ MD [address] [facility] [address] [place] [address] HUGO SMITH MD [address] [place] [place] [address] / NILSON LOPEZ MD [address] [facility] [address] [place] [address] TONY GAY MD [address] [facility] Floor [address] [place] [address] ROBERT SORIANO MD [address] [facility] [address] [place] [address] / documented in this encounter Plan of Treatment Not on file documented as of this encounter Results * Pulmonary Function Test - (03/21/2021 2:00 PM CORN CHIP MAKER) FVC PRE 2.38 L [facility] FVC %PRE PRED 65 % [facility] FEV1 PRE 1.86 L [facility] FEV1 %PRE PRED 65 % [facility] FEV1/FVC PRE 77.8 % [facility] Anatomical Region Laterality Modality PFT 03/21/2021 1:30 PM CORN CHIP MAKER Narrative 03/23/2021 12:22 PM CORN CHIP MAKER [facility] Division of Pulmonary & Critical Care Medicine [address] [place] [address]; [address] [facility]; [place], [place] [address]; [phone] Pulmonary Function Laboratory Pulmonary Stress Test Simple/Oxygen Assessment Patient: Aleah Gerber Date: 03/21/2021 Physician: MELISA Ht: 69IN ?? 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 PFT performed at:->[facility] Adult PFT Lab- [facility]-8D Procedure:->Spirometry Procedure:->Oxygen Assessment Titration Cristobal Dong MD PFT ORDERABLES Final Result * XR Chest Pa Lateral 2 Views [...] it. Electronically signed by: Luís Casper M.D. us Cristobal Dong MD IMG XR PROCEDURES Final Result * ECG 12 lead (07/26/2020 3:13 PM CDT) Cristobal oDng MD ECG ORDERABLES Final Result documented in this encounter Visit Diagnoses Diagnosis Moderate persistent asthma, unspecified whether complicated- Primary Irregular heart beat Unspecified cardiac dysrhythmia Moderate persistent asthma, unspecified whether complicated Moderate persistent asthma, unspecified whether complicated documented in this encounter Discontinued Medications Medication Sig Discontinue Reason Start Date End Da te fluticasone propion-salmeteroL (ADVAIR DISKUS) 250-50 mcg/dose diskus inhaler Inhale 1 puff 2 (two) times a day Rinse mouth with water after use. Do not swallow. 01/04/2020 07/26/2020 documented as of this encounter Historical Medications * This list may reflect changes made after this encounter. DULoxetine DR (CYMBALTA) 60 mg capsuleIndication s:Neuropathic Pain Take 1 capsule (60 mg total) by mouth nightly 05/07/2020 gabapentin (NEURONTIN) 300 mg capsule Take 300 mg by mouth as needed 07/02/2020 09/27/2020 Trulicity 1.5 mg/0.5 mL pen injector 07/02/2020 10/14/2020 added in this encounter Care Teams Computer Technical Support Specialist Relationship Specialty Start Date End Date Hugo Smith MD PCP - General 11/04/17 09/27/21 Aft, Tony Machado MD PhD [address] [place] [address] Surgeon Surgical Oncology 11/22/17 Robert Soriano MD [address] [place] [address] Automatic Print Developer Gastroenterology 11/22/17 Nicole López MD [address] [place] [address] Referring Physician Colon and Rectal Surgery 12/03/1805/06 Birdie Ventura MD [address] [facility] [address] [place] [address] Medical Oncologist/Front Clerk Medical Oncology 12/03/18 Montse Carter MD [address] [facility] [address] [place] [address] Consulting Physician Gynecologic Oncology 12/03/18 Nilson Lopez MD PhD [address] [place] [address] [address] [place] [address] Radiation Oncologist Radiation Oncology 12/23/18 Aft, Tony Machado MD PhD [address] [place] [address] [address] [place] [address] Surgeon Surgical Oncology 12/23/18 09/17/21 documented as of this encounter
--- OUTSIDE RECORDS SUMMARY | 2024-04-24 13:40 | XMS_ITS | Encounter Summary ---
Author Organization [facility] Healthcare Address [address] [place] [address] Care Team Providers Care As400 Operator Name Role Phone Ravi Smith MD Primary Care Provider [phone] Aft, Kianna Machado MD PhD Unavailable [phone] Santiago Gilbert MD Unavailable [phone] Dmitry Sanderson MD Unavailable [phone] Abbi Ventura MD Unavailable Montse Thompson MD Unavailable [phone] Lela Hardy MD PhD Unavailable [phone] Aft, Kianna Machado MD PhD Unavailable [phone] Reason for Referral * Diagnostic Imaging (Routine) - Closed Specialty Diagnoses / Procedures Referred By Vijaya simpson Referred To Contact Diagnoses Encounter for screening mammogram for malignant neoplasm of breast Procedures Screening Mammogram Bilateral W Mathew Screening Mammogram, Self [address] [address] Referral ID Status Reason Start Date Expiration Date Visits Re quested Visits Authorized [id number] Closed 08/30/2020 09/29/2021 1 1 Reason for Visit * Diagnostic Imaging (Routine) - Closed Specialty Diagnoses / Procedures Referred By Vijaya simpson Referred To Contact Diagnoses Encounter for screening mammogram for malignant neoplasm of breast Procedures Screening Mammogram Bilateral W Mathew Screening Mammogram, Self [facility] [address] [place] [address] Referral ID Status Reason Start Date Expiration Date Visits Re quested Visits Authorized [id number] Closed 08/30/2020 09/29/2021 1 1 Encounter Details Date Type Department Care Team (Latest Contact Info) Description 10/06/2020 3:22 PM CDT - 10/06/2020 11:59 PM CDT Hospital Encounter [facility] Breast Imaging [facility] ([facility]) [address] [place] [address] Screening Mammogram, Self Encounter for screening mammogram for malignant neoplasm of breast Discharge Disposition: Discharge to home or self [...] on file 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 ??Views obtained: ??bilateral craniocaudal and bilateral mediolateral oblique. ??Computer Aided Detection was performed. Mammogram Findings: The present examination has been compared to prior imaging studies performed at [facility] on 12/02/2006, and at [facility] on 11/05/2017 and 08/11/2018. The breasts are heterogeneously dense, which may obscure small masses. There is no suspicious abnormality in either breast. There are no significant changes from the prior study. Impression: Finding is benign. Annual screening mammography is recommended. OVERALL FINAL ASSESSMENT: BI-RADS CATEGORY 2: ??Benign. Procedure Note Bety Mendoza MD - 10/10/2020 Mammogram Technique: Bilateral Digital Breast Tomosynthesis, Bilateral C-view 2D Screening mammogram. Views obtained: bilateral craniocaudal and bilateral mediolateral oblique. Computer Aided Detection was performed. Mammogram Findings: The present examination has been compared to prior imaging studies performed at [facility] on 12/02/2006, and at [facility] on 11/05/2017 and 08/11/2018. The breasts are heterogeneously dense, which may obscure small masses. There is no suspicious abnormality in either breast. There are no significant changes from the prior study. Impression: Finding is benign. Annual screening mammography is recommended. OVERALL FINAL ASSESSMENT: BI-RADS CATEGORY 2: Benign. us Self Screening Mammogram IMG MAMMO PROCEDURES Fi nal Result documented in this encounter Visit Diagnoses Diagnosis Encounter for screening mammogram for malignant neoplasm of breast documented in this encounter Care Teams As400 Operator Relationship Specialty Start Date End Date Ravi Smith MD PCP - General 11/04/17 09/27/21 Aft, Kianna Machado MD PhD [address] [place] [address] Surgeon Surgical Oncology 11/22/17 Santiago Gilbert MD [address] [place] [address] Councilperson Gastroenterology 11/22/17 Dmitry Sanderson MD [address] [place] [address] Referring Physician Colon and Rectal Surgery 12/03/1805/06 Abbi Ventura MD [address] [facility] [address] [place] [address] Medical Oncologist/Chalker Soles Medical Oncology 12/03/18 Montse Thomspon MD [address] [facility] [address] [place] [address] Consulting Physician Gynecologic Oncology 12/03/18 Lela Hardy MD PhD [address] [facility] [address] [place] [address] Radiation Oncologist Radiation Oncology 12/23/18 Aft, Kianna Machado MD PhD [address] [place] [address] Surgeon Surgical Oncology 12/23/18 09/17/21 documented as of this encounter
--- OUTSIDE RECORDS SUMMARY | 2024-04-24 13:40 | XMS_ITS | Encounter Summary ---
Author Organization [facility] Address [address] [place] [address] Phone Care Team Providers Care Refractory Mixer Name Role Phone Ravi Smith MD Primary Care Provider [phone] Aft, Kianna Machado MD PhD Unavailable [phone] Santiago Gilbert MD Unavailable [phone] Dmitry Sanderson MD Unavailable [phone] Abbi Ventura MD Unavailable Montse Thompson MD Unavailable [phone] Lela Hardy MD PhD Unavailable [phone] Aft, Kianna Machado MD PhD Unavailable [phone] Encounter Details Date Type Department Care Team (Late st Contact Info) Description 10/07/2020 Orders Only [facility] Oncology [address] [place] [address] Abbi Ventura MD [address] [place], [place] [id number] Social History Tobacco Use Types Packs/Day Years [...] file 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 Gender Identity Not on file Sexual Orientation Not on file documented as of this encounter Plan of Treatment Not on file documented as of this encounter Visit Diagnoses Not on filedocumented in this encounter Care Teams Refractory Mixer Relationship Specialty Start Date End Date Ravi Smith MD PCP - General 11/04/17 09/27/21 Aft, Kianna Machado MD PhD [address] [place] [address] Surgeon Surgical Oncology 11/22/17 Santiago Gilbert MD [address] [place] [address] Exhibition Carver Gastroenterology 11/22/17 Dmitry Sanderson MD [address] [place] [address] Referring Physician Colon and Rectal Surgery 12/03/1805/06 Abbi Ventura MD [address] [place] [address] [address] [place] [address] Medical Oncologist/Wrecking Supervisor Medical Oncology 12/03/18 Montse Thompson [facility] [address] [place] [address] Consulting Physician Gynecologic Oncology 12/03/18 Lela Hardy MD PhD [address] [place] [address] Radiation Oncologist Radiation Oncology 12/23/18 Aft, Kianna Machado MD PhD [address] [facility] [address] [place] [address] Surgeon Surgical Oncology 12/23/18 09/17/21 documented as of this encounter
--- OUTSIDE RECORDS SUMMARY | 2024-04-24 13:40 | XMS_ITS | Encounter Summary ---
Author Organization [facility] Address [address] [place] [address] Phone Care Team Providers Care Real Estate Development Manager Name Role Phone Ravi Smith MD Primary Care Provider [phone] Aft, Kianna Machado MD PhD Unavailable [phone] Santiago Gilbert MD Unavailable [phone] Dmitry Sanderson MD Unavailable [phone] Abbi Ventura MD Unavailable Montse Thompson MD Unavailable [phone] Lela Hardy MD PhD Unavailable [phone] Aft, Kianna Machado MD PhD Unavailable [phone] Encounter Details Date Type Department Care Team (Late st Contact Info) Description 09/26/[address] [address] Uriel Corral Social History Tobacco Use Types [...] on file 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 She was seen last by our service on 04/26/20 and has an upcoming appt on 12/28. She finished 8 cycles of adjuvant chemo with 5FU/LV in May She finished adjuvant radiation therapy for breast cancer in February She is currently on observation and called today with some very vague symptoms that she wanted to make us aware of and see if we would be willing to refer her to pain management. States since July she has been having generalized ???all over?? body aches that are constant, especially at pressure points like her knees and elbows, and STOUT that run along her head at the site of where one might wear a headband. She had a brain MRI in April which was negative for met disease. She has seen her PCP in regards to all of these symptoms, they have tested her for Rheum and Thyroid disease-which were negative. She has tried Tylenol, Motrin, Aleve, heat and ice for her symptoms, which she said do not relieve her pain. She does not notice any exacerbating or contributing factors to her pain either. Dr. Ventura notified, patient scheduled for ROV on 09/29/20. Patient verbalizse understanding and agrees with plan to see . Uriel Corral RN documented in this encounter Plan of Treatment Not on file documented as of this encounter Visit Diagnoses Not on filedocumented in this encounter Care Teams Real Estate Development Manager Relationship Specialty Start Date End Date Ravi Smith MD PCP - General 11/04/17 09/27/21 Aft, Kianna Machado MD PhD [address] [place] [address] Surgeon Surgical Oncology 11/22/17 Santiago Gilbert MD [address] [place] [address] Manager Sound Gastroenterology 11/22/17 Dmitry Sanderson MD [address] [place] [address] Referring Physician Colon and Rectal Surgery 12/03/1805/06 Abbi Ventura MD [address] [place] [address] [address] [place] [address] Medical Oncologist/Is Project Manager Medical Oncology 12/03/18 Montse Thompson MD [address] [place] [address] [address] [place] [address] Consulting Physician Gynecologic Oncology 12/03/18 Lela Hardy MD PhD [address] [place] [address] [address] [place] [address] Radiation Oncologist Radiation Oncology 12/23/18 Aft, Kianna Machado MD PhD [address] [place] [address] [address] [place] [address] Surgeon Surgical Oncology 12/23/18 09/17/21 documented as of this encounter
--- OUTSIDE RECORDS SUMMARY | 2024-04-24 13:40 | XMS_ITS | Encounter Summary ---
Author Organization [facility] Address [address] [place] [address] Phone Care Team Providers Care Air Bag Curer Name Role Phone Ravi mSith MD Primary Care Provider [phone] Aft, Kianna Machado MD PhD Unavailable [phone] Santiago Gilbert MD Unavailable [phone] Dmitry Sanderson MD Unavailable [phone] Abbi Ventura MD Unavailable Montse Thompson MD Unavailable [phone] Lela Hardy MD PhD Unavailable [phone] Aft, Kianna Machado MD PhD Unavailable [phone] Encounter Details Date Type Department Care Team (Late st Contact Info) Description 09/29/2020 12:15 PM CDT Lab [facility] Oncology [address] [place] [address] Malignant neoplasm of upper-inner quadrant of left breast in female, 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); Malignant neoplasm of descending colon (CMS/HCC) Social [...] on file 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 Gender Identity Not on file Sexual Orientation Not on file documented as of this encounter Plan of Treatment Not on file documented as of this encounter Procedures Procedure Name Priority Date/Time Associated Diagnosis Comments DIFFERENTIAL AUTO Routine 09/29/2020 12: 05 PM CDT Malignant neoplasm of upper-inner quadrant of left breast in female, 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) Malignant neoplasm of descending colon (CMS/HCC) CBC WITH AUTO DIFFERENTIAL Routine 09/29/2020 12:05 PM CDT Malignant neoplasm of upper-inner quadrant of left breast in female, 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) Malignant neoplasm of descending colon (CMS/HCC) CEA Routine 09/29/2020 12:05 PM CDT Malignant neoplasm of upper-inner quadrant of left breast in female, 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) Malignant neoplasm of descending colon (CMS/HCC) COMPREHENSIVE METABOLIC PANEL STAT 09/29/2020 12:05 PM CDT Malignant neoplasm of upper-inner quadrant of left breast in female, 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) Malignant neoplasm of descending colon (CMS/HCC) documented in this encounter Results * Differential, auto (09/29/2020 12:05 PM CDT) Neutrophil abs 5.0 1.7 - 6.5 K/cumm [facility] Imm gran abs 0.0 0.0 - 0.1 K/cumm [facility] Lymphocyte abs 1.5 0.8 - 3.3 K/cumm [facility] Monocyte abs 0.5 0.2 - 0.8 K/cumm [facility] Eosinophil abs 0.4 0.0 - 0.5 K/cumm [facility] Basophil abs 0.1 0.0 - 0.1 K/cumm [facility] Neutrophil pct 66.9 % [facility] Comment: Interpretive Data Percent cell count reference ranges are not reported, since discordance with absolute values may lead to misinterpretation of CBC data. Current Interpretive Data was last revised on 2017. Imm gran pct 0.3 % [facility] Comment: Interpretive Data Percent cell count reference ranges are not reported, since discordance with absolute values may lead to misinterpretation of CBC data. Current Interpretive Data was last revised on 2017. Lymphocyte pct 20.1 % [facility] Comment: Interpretive Data Percent cell count reference ranges are not reported, since discordance with absolute values may lead to misinterpretation of CBC data. Current Interpretive Data was last revised on 2017. Monocyte pct 6.5 % [facility] Comment: Interpretive Data Percent cell count reference ranges are not reported, since discordance with absolute values may lead to misinterpretation of CBC data. Current Interpretive Data was last revised on 2017. Eosinophil pct 5.3 % [facility] Comment: Interpretive Data Percent cell count reference ranges are not reported, since discordance with absolute values may lead to misinterpretation of CBC data. Current Interpretive Data was last revised on 2017. Basophil pct 0.9 % [facility] Comment: Interpretive Data Percent cell count reference ranges are not reported, since discordance with absolute values may lead to misinterpretation of CBC data. Current Interpretive Data was last revised on 2017. Blood specimen (specimen) 09/29/2020 12:05 PM CDT 09/29/2020 12:12 PM CDT us Abbi Ventura MD LAB BLOOD ORDERABLES Final Resul t [facility] [place] [address] * CBC with auto differential (09/29/2020 12:05 PM CDT) WBC 7.5 3.8 - 9.9 K/cumm [facility] Hgb 12.2 11.9 - 15.5 g/dL [facility] Hct 37.2 35.6 - 45.5 % [facility] Plt 166 150 - 400 K/cumm [facility] MPV 9.8 9.1 - 12.3 fL [facility] RBC 3.93 3.90 - 5.20 M/cumm [facility] MCV 94.7 81.3 - 96.4 fL [facility] MCH 31.0 27.1 - 33.3 pg [facility] MCHC 32.8 32.3 - 35.7 g/dL [facility] RDW CV 12.8 11.1 - 14.9 % [facility] RDW SD 44.4 35.7 - 48.1 fL [facility] NRBC abs 0.00 0.00 - 0.01 K/cumm [facility] Blood specimen (specimen) 09/29/2020 12:05 PM CDT 09/29/2020 12:12 PM CDT us Abbi Ventura MD LAB BLOOD ORDERABLES Final Resul t [facility] Department [place] [address] * (ABNORMAL) Comprehensive metabolic panel (09/29/2020 12:05 PM CDT) Sodium 140 135 - 145 mmol/L [facility] Potassium, pl 4.0 3.3 - 4.9 mmol/L [facility] Chloride 104 97 - 110 mmol/L [facility] CO2 29 22 - 32 mmol/L [facility] Anion gap 7 2 - 15 mmol/L [facility] BUN 23 8 - 25 mg/dL [facility] Creatinine 1.45(H) 0.60 - 1.10 mg/dL [facility] Glucose 160 70 - 199 mg/dL [facility] Comment: Interpretive Data Fasting glucose >/= 126 [...] Calcium 9.6 8.5 - 10.3 mg/dL [facility] Bilirubin, total 0.6 0.1 - 1.2 mg/dL [facility] Protein, pl 6.9 6.5 - 8.5 g/dL [facility] Albumin 4.0 3.5 - 5.0 g/dL [facility] Alk phos 88 40 - 130 Units/L [facility] ALT 13 7 - 45 Units/L [facility] AST 22 10 - 45 Units/L [facility] Blood specimen (specimen) 09/29/2020 12:05 PM CDT 09/29/2020 12:12 PM CDT Abbi Ventura MD LAB BLOOD ORDERABLES Final Resul t Performing Organization Address City/[facility] de Phone Number [facility] [place] [address] * CEA (09/29/2020 12:05 PM CDT) CEA 2.1 <=5.0 ng/mL [facility] Comment: Interpretive Data: Reference Range: Non-Smokers: 0.0 ? 5.0 ng/mL Smokers: 0.0 ? 6.5 ng/mL Current interpretive data was last revised 2020. Blood specimen (specimen) 09/29/2020 12:05 PM CDT 09/29/2020 1:39 PM CDT us Abbi Ventura MD LAB BLOOD ORDERABLES Final Resul t [facility] [place] [address] documented in this encounter Visit Diagnoses Diagnosis Malignant neoplasm of upper-inner quadrant of left breast in female, 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) Malignant neoplasm of descending colon documented in this encounter Orders Appointment Requests Count Last Ordered Date Fi rst Ordered Date ONCBCN LAB APPOINTMENT 1 09/29/2020 documented in this encounter Care Teams Air Bag Curer Relationship Specialty Start Date End Date Ravi Smith MD PCP - General 11/04/17 09/27/21 Aft, Kianna Machado MD PhD [address] [place] [address] Surgeon Surgical Oncology 11/22/17 Santiago Gilbert MD [address] [place] [address] Cut And Cover Line Worker Gastroenterology 11/22/17 Dmitry Sanderson MD [address] [place] [address] Referring Physician Colon and Rectal Surgery 12/03/1805/06 Abbi Ventura MD [address] [place] [address] [address] [place] [address] Medical Oncologist/Worm Farmer Medical Oncology 12/03/18 Montse Thompson MD [address] [place] [address] [address] [place] [address] Consulting Physician Gynecologic Oncology 12/03/18 Lela Hardy MD PhD [address] [place] [address] [address] [place] [address] Radiation Oncologist Radiation Oncology 12/23/18 Kianna Bunch MD PhD [facility] [place] [address] Surgeon Surgical Oncology 12/23/18 09/17/21 documented as of this encounter
--- OUTSIDE RECORDS SUMMARY | 2024-04-24 13:40 | XMS_ITS | Encounter Summary ---
Author Organization [facility] Healthcare Address [address] [place] [address] Care Team Providers Care Data Entry Supervisor Name Role Phone Ravi Smith MD Primary Care Provider [phone] Aft, Kianna Machado MD PhD Unavailable [phone] Santiago Gilbert MD Unavailable [phone] Dmitry Sanderson MD Unavailable [phone] Abbi Ventura MD Unavailable Montse Thompson MD Unavailable [phone] Lela Hardy MD PhD Unavailable [phone] Aft, Kianna Machado MD PhD Unavailable [phone] Encounter Details Date Type Department Care Team (Late st Contact Info) Description 08/18/2020 2:13 PM CDT Hospital Encounter [facility] OP INTERIM Beto Mckeon MD [address] 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 Patient Name: ALEAH GERBER ? MR#: [id number] ?? 23 ? Status: REG CLI ? D.O.B: 1955 Age: ??65 ?Sex: Female ? ADM/SER Dt: 08/18/20 ?Disch Dt: ? LOC: [id number] ? Ordering Phy: Beto Mckeon MD ? Order #[id number] ? Carotid Ultrasound Bilateral ?? Beto Valdiviarosaura COY ? Signed ?? DATE OF SERVICE: ?? 08/18/2020 ? REASON FOR STUDY: ??Visual changes. ? Vertebral artery flow is antegrade bilaterally. ??There is minimal plaque in both internal carotid arteries of less than 50% diameter stenoses. ??There is no significant increase in peak systolic velocity in either internal carotid artery. ??The peak systolic velocity on the right is 65 cm/s and on the left is 55 cm/s. ? IMPRESSION: ??No significant stenosis in either internal carotid artery. ? NTS ? Job: [id number] ? Dictated By: Beto Mckeon MD ?? Dictated For: Beto Mckeon MD ? <Electronically signed by Beto Mckeon MD> ? 08/18/20 1656 ?? Resulting Agency Comment O Procedure Note Beto Mckeon MD - 08/18/2020 Patient Name: ALEAH GERBER #: [id number] Status: REG CLI D.O.B: 1955 Age: 65Sex: Female ADM/SER Dt: 08/18/20 [facility]: Beto Mckeon MD Order #[id number] Carotid Ultrasound Bilateral Beto Mckeon MD Signed DATE OF SERVICE: 08/18/2020 REASON FOR STUDY: Visual changes. Vertebral artery flow is antegrade bilaterally. There is minimal plaquein both internal carotid arteries of less than 50% diameter stenoses. There is no significantincrease in peak systolic velocity in either internal carotid artery. The peak systolic velocity onthe right is 65 cm/s and on the left is 55 cm/s. IMPRESSION: No significant stenosis in either internal carotid artery. NTS Job: [id number] Dictated By: Beto Mckeon MD Dictated For: Beto Mckeon MD <Electronically signed by Beto Mckeon MD> 08/18/20 1653 us Beto Mckeon MD IMG US PROCEDURES Final Res ult documented in this encounter Visit Diagnoses Not on filedocumented in this encounter Care Teams Data Entry Supervisor Relationship Specialty Start Date End Date Ravi Smith MD PCP - General 11/04/17 09/27/21 Aft, Kianna Machado MD PhD [address] [place] [address] Surgeon Surgical Oncology 11/22/17 Santiago Gilbert MD [address] [place] [address] Folder Hand Gastroenterology 11/22/17 Dmitry Sanderson MD [address] [place] [address] Referring Physician Colon and Rectal Surgery 12/03/1805/06 Abbi Ventura MD [address] [facility] [address] [place] [address] Medical Oncologist/Sand Mixer Medical Oncology 12/03/18 Montse Thompson MD [address] [facility] [address] [place], [place] [address] Consulting Physician Gynecologic Oncology 12/03/18 Lela Hardy MD PhD [address] [place], [place] [address] Radiation Oncologist Radiation Oncology 12/23/18 Aft, Kianna Machado MD PhD [address] [facility] [address] [place] [address] Surgeon Surgical Oncology 12/23/18 09/17/21 documented as of this encounter
--- OUTSIDE RECORDS SUMMARY | 2024-04-24 13:40 | XMS_ITS | Encounter Summary ---
Author Organization [facility] Address [address] [place] [address] Phone Care Team Providers Care Direct Mail Coordinator Name Role Phone Ravi Smith MD Primary Care Provider [phone] Aft, Kianna Machado MD PhD Unavailable [phone] Santiago Gilbert MD Unavailable [phone] Dmitry Sanderson MD Unavailable [phone] Abbi Ventura MD Unavailable Montse Thompson MD Unavailable [phone] Lela Hardy MD PhD Unavailable [phone] Aft, Kianna Machado MD PhD Unavailable [phone] Reason for Referral * Diagnostic Imaging (Routine) - Closed Specialty Diagnoses / Procedures Referred By Contac t Referred To Contact Diagnoses Malignant neoplasm of upper-inner quadrant of left breast in female, 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) Procedures NM Bone Imaging Whole Body Abbi Ventura MD [address] [place] [address] Phone: tel: fax: [address] [phone] Referral ID Status Reason Start Date Expiration Date Visits Re quested Visits Authorized [id number] Closed 09/29/2020 10/29/2021 2 2 * MRI/CAT/PET Scan (Routine) - Closed Specialty Diagnoses / Procedures Referred By Vijaya t Referred To Contact Radiology Diagnoses Malignant neoplasm of upper-inner quadrant of left breast in female, 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) Procedures CT Chest Abdomen Pelvis W Contrast Abbi Ventura MD [address] [place] [address] Phone: tel: fax: [facility] Referral ID Status Reason Start Date Expiration Date Visits Re quested Visits Authorized [id number] Closed 09/29/2020 10/29/2021 1 1 Encounter Details Date Type Department Care Team (Late st Contact Info) Description 09/29/2020 12:45 PM CDT Office Visit [facility] Oncology [address] [place] [address] Abbi Ventura MD [address] [place], [place] [id number] 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); Malignant neoplasm of upper-inner quadrant of left breast in female, 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) Social History Tobacco Use Types Packs/Day Years Used Date Smoking Tobacco: Former Cigarettes 1 42 1 973 - 2015 Smokeless Tobacco: Never Tobacco Cessation:Counseling Given: No Alcohol Use Standard Drinks/Week Comments Not Currently [...] on file 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 Gender Identity Not on file Sexual Orientation Not on file documented as of this encounter Last Filed Vital Signs Vital Sign Reading Time Taken Comments Blood Pressure 138/83 09/29/2020 1:02 PM CDT Pulse 84 09/29/2020 1:02 PM CDT Temperature 36.5 ??C (97.7 ??F) 09/29/2020 1:02 PM CD T Respiratory Rate 16 09/29/2020 1:02 PM CDT Oxygen Saturation 95% 09/29/2020 1:02 PM CDT Inhaled Oxygen Concentration - - Weight 110.7 kg (244 lb) 09/29/2020 1:02 PM CDT Height 175.3 cm (5' 9 ) 09/29/2020 1:02 PM CDT Body Mass Index 36.03 09/29/2020 1:02 PM CDT documented in this encounter Progress Notes * Abbi Ventura MD - 09/29/2020 12:45 PM CDT Images from the original note [...] ~ 1.4 cm, Grade 3, ER 0, LA 0, HER-2 IHC 0. Partial mastectomy and [...] Adjuvant radiation therapy completed 02/04/2019. Interval History C/o pain in the anterior neck area starting mid July 2020. She then started having pain in different areas of her body as described below in her notes. She also had paresthesias in different areas and felt like there were bumps in the location of discomfort. The discomfort moved around. Last weekend she had paresthesias in left breast area that was severe and resolved on its own. The pain in different areas of her body has improved somewhat and she now mainly has paresthesias in her hands and feet which feels worse than what it was during chemotherapy days. Review of Systems Review of systems positive for symptoms as per interval history. All other review of systems negative. Objective Vitals: Vitals BP 138/83 (BP Location: Right arm) Pulse 84 Temp 36.5 ??C (97.7 ??F) (Skin) Resp 16 Ht 175.3 cm (5' 9 ) Wt 110.7 kg (244 lb) LMP (LMP Unknown) SpO2 95% BMI 36.03 kg/m?? PERFORMANCE STATUS: ECOG 1 SKIN: Normal [...] evidence of engorgement, indention inner/lower at scarring. Lab/Radiology/Diagnostic Review: Hematology Lab History Some values may be hidden. Unless noted otherwise, only the newest values recorded on each date aredisplayed. Labs - Hematology Latest Ref Range 12/23/19 04/26/20 09/29/20 WBC 3.8 - 9.9 K/cumm 8.1 9.9 7.5 Total Hb, POC 11.9 - 15.5 g/dL 11.8 (A) 12.3 12.2 Hct 35.6 - 45.5 % 35.9 37.5 37.2 Plt 150 - 400 K/cumm 175 189 166 Neutrophil abs 1.7 - 6.5 K/cumm 5.4 6.7 (A) 5.0 Lymphocytes, abs 0.8 - 3.3 K/cumm 1.7 1.6 1.5 (A) Abnormal value Lab Results Component Value Date SODIUM 140 09/29/2020 POTASSIUM 4.0 09/29/2020 CO2 29 09/29/2020 BUNSER 23 09/29/2020 GLUCOSE 160 09/29/2020 CREATININE 1.45 (H) 09/29/2020 CALCIUM 9.6 09/29/2020 CHLORIDE 104 09/29/2020 ALBUMIN 4.0 09/29/2020 AST 22 09/29/2020 ALT 13 09/29/2020 ALKPHOS 88 09/29/2020 BILITOT 0.6 09/29/2020 PROT 6.9 09/29/2020 ANIONGAP 7 09/29/2020 Tumor Marker History Some values may be hidden. Unless noted otherwise, only the newest values recorded on each date aredisplayed. Tumor Markers Latest Ref Range 12/23/19 04/26/20 09/12/20 CEA <=5.0 ng/mL 1.9 1.8 CA 125 ag 0.0 - 35.0 units/mL 7.9 Comments are available for some flowsheets but are not being displayed. Recent labs, radiology and pathology reviewed in EPIC ASSESSMENT: T4bN0 disease, Stage IIC colon adenocarcinoma and T2N0, Stage IIA triple negative left breast cancer: I am ordering CT CAP with contrast and bone scan to evaluate for metastatic disease. Complaints of pain in multiple bones and body areas -If scans negative for metastatic disease, she has appointment coming up with doors prefitter to evaluate for fibromyalgia and other connective tissue disorders MyRisk panel is positive for BRCA2 mutation, and VUS in BRIP1 and NBN: Status post bilateral oophorectomy. 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 Paresthesias feel worse now. PLAN: F/u CT CAP and bone scan result F/u Senior Electronics Technician as above Will call Dr. Gilbert's office and get last colonoscopy report to decide on when she is due again Planning yearly Breast MRI in April 2021, closely monitoring due to BRCA2 mutation. Has mammogram coming up 10/06/20. RTC in 6 months if scans are negative for cancer. If positive for cancer lesions, I will see the patient back sooner Aleahchris Gerber will follow up as directed above, she was encouraged to call in the interim with questions or concerns. We will continue to monitor and review for side effects from treatment. Abbi eVntura MD occupational health professional Division of Oncology Section of Medical Oncology [facility] Computer Aided Design Operator completed by using M*Modal Fluency Direct speaking software, therefore, transcriptionvariances may occur. documented in this encounter Plan of Treatment Not on file documented as of this encounter Results * (ABNORMAL) Comprehensive metabolic panel (03/23/2021 2:02 PM IMPLEMENTATION ENGINEER) Sodium 142 135 - 145 mmol/L [facility] Potassium, pl 4.6 3.3 - 4.9 mmol/L [facility] Chloride 106 97 - 110 mmol/L [facility] CO2 27 22 - 32 mmol/L [facility] Anion gap 9 2 - 15 mmol/L [facility] BUN 32(H) 8 - 25 mg/dL [facility] Creatinine 1.98(H) 0.60 - 1.10 mg/dL [facility] Glucose 209(H) 70 - 199 mg/dL [facility] Comment: Interpretive Data Fasting glucose [...] 2017. Calcium 9.6 8.5 - 10.3 mg/dL [facility] Bilirubin, total 0.4 0.1 - 1.2 mg/dL [facility] Protein, pl 7.0 6.5 - 8.5 g/dL [facility] Albumin 4.2 3.5 - 5.0 g/dL [facility] Alk phos 94 40 - 130 Units/L [facility] ALT 14 7 - 45 Units/L [facility] AST 18 10 - 45 Units/L [facility] Blood 03/23/2021 2:02 PM IMPLEMENTATION ENGINEER 03/23/2021 2:05 PM IMPLEMENTATION ENGINEER us Abbi Ventura MD LAB BLOOD ORDERABLES Final Resul t [facility] [place] [address] * (ABNORMAL) CBC with auto differential (03/23/2021 2:02 PM IMPLEMENTATION ENGINEER) WBC 9.9 3.8 - 9.9 K/cumm [facility] Hgb 11.7(L) 11.9 - 15.5 g/dL [facility] Hct 35.8 35.6 - 45.5 % [facility] Plt 178 150 - 400 K/cumm [facility] MPV 10.2 9.1 - 12.3 fL [facility] RBC 3.66(L) 3.90 - 5.20 M/cumm [facility] MCV 97.8(H) 81.3 - 96.4 fL [facility] MCH 32.0 27.1 - 33.3 pg [facility] MCHC 32.7 32.3 - 35.7 g/dL [facility] RDW CV 13.2 11.1 - 14.9 % [facility] RDW SD 47.7 35.7 - 48.1 fL [facility] NRBC abs 0.00 0.00 - 0.01 K/cumm [facility] Blood 03/23/2021 2:02 PM IMPLEMENTATION ENGINEER 03/23/2021 2:05 PM IMPLEMENTATION ENGINEER Abbi Ventura MD LAB BLOOD ORDERABLES Final Resul t [facility] [place] [address] * CEA (03/23/2021 2:02 PM IMPLEMENTATION ENGINEER) CEA 1.5 <=5.0 ng/mL [facility] Comment: Interpretive Data: Reference Range: Non-Smokers: 0.0 ? 5.0 ng/mL Smokers: 0.0 ? 6.5 ng/mL Current interpretive data was last revised 2020. Blood 03/23/2021 2:02 PM IMPLEMENTATION ENGINEER 03/23/2021 7:06 PM IMPLEMENTATION ENGINEER Abbi Ventura MD LAB BLOOD ORDERABLES Final Resul t [facility] [place] [address] * NM Bone Imaging Whole Body (10/06/2020 2:59 PM CDT) Anatomical Region Laterality Modality N/A Nuclear Medicine 10/06/2020 3:35 PM CDT Impressions 10/06/2020 3:44 PM CDT No scintigraphic evidence of osseous metastases. Dictated by: Rayray Hare M.D. The radiology attending physician has personally reviewed this study, and had reviewed and/or edited this written report and agrees with it. Electronically signed by: Marlon Anderson M.D. Narrative 10/06/2020 3:44 PM CDT EXAMINATION: ??BONE SCINTIGRAPHY (WHOLE-BODY) DATE OF STUDY: ?? 10/06/2020 RADIOPHARMACEUTICAL: ?? 19.59 mCi Tc-99m MDP i.v. HISTORY: ??65-year-old female with history of colon cancer and triple negative left breast cancer, status post treatment in 2019, presenting with diffuse pain and multiple body areas. ??Assessment for metastatic disease FINDINGS: ??Delayed whole-body scintigrams were obtained. ?? Prior nuclear medicine studies used for comparison: Bone scan dated 06/24/2019 Other radiographic comparisons: CT dated 09/29/2020 There is mild radiotracer uptake along the chest wall, unchanged from prior, likely attributable to soft tissue activity within bilateral breasts. ??Mild degenerative pattern radiotracer uptake in bilateral shoulders, elbows, sternoclavicular joints and in the thoracic spine. Procedure Note Marlon Anderson MD - 10/06/2020 EXAMINATION: BONE SCINTIGRAPHY (WHOLE-BODY) DATE OF STUDY: 10/06/2020 RADIOPHARMACEUTICAL: 19.59 mCi Tc-99m MDP i.v. HISTORY: 65-year-old female with history of colon cancer and triple negative left breast cancer, status post treatment in 2019, presenting with diffuse pain and multiple body areas. Assessment for metastatic disease FINDINGS: Delayed whole-body scintigrams were obtained. Prior nuclear medicine studies used for comparison: Bone scan dated 06/24/2019 Other radiographic comparisons: CT dated 09/29/2020 There is mild radiotracer uptake along the chest wall, unchanged from prior, likely attributable to soft tissue activity within bilateral breasts. Mild degenerative pattern radiotracer uptake in bilateral shoulders, elbows, sternoclavicular joints and in the thoracic spine. IMPRESSION: No scintigraphic evidence of osseous metastases. Dictated by: Rayray Hare M.D. The radiology attending physician has personally reviewed this study, and had reviewed and/or edited this written report and agrees with it. Electronically signed by: Marlon Anderson M.D. Abbi Ventura MD IM NM PROCEDURES Final Result * CT Chest Abdomen Pelvis W Contrast [...] Discontinue Reason Start Date End Da te acetaminophen (TYLENOL) 500 mg tablet Take 1,000 mg by mouth every 6 (six) hours as needed for pain Other 09/29/2020 cyclobenzaprine (FLEXERIL) 10 mg tablet TK 1 T PO QHS Other 02/15/2020 09/30/19 21 LORazepam (ATIVAN) 0.5 mg tablet Take 1 tablet (0.5 mg total) by mouth as directed 1 by mouth 30 minutes prior to MRI Other 04/12/2020 09/29/2020 mecobalamin, vitamin B12, 1,000 mcg tablet,disintegrating Place under the tongue every morning Other 09/29/2020 documented as of this encounter Orders Appointment Requests Count Last Ordered Date Fi rst Ordered Date ONCBCN CLINIC APPOINTMENT REQUEST 2 021 09/29/2020 ONCBCN LAB APPOINTMENT 1 03/23/2021 documented in this encounter Care Teams Direct Mail Coordinator Relationship Specialty Start Date End Date Ravi Smith MD PCP - General 11/04/17 09/27/21 AftKianna MD PhD [address] [place] [address] Surgeon Surgical Oncology 11/22/17 Santiago Gilbert MD [address] [place] [address] Irrigator Overhead Gastroenterology 11/22/17 Dmitry Sanderson MD [address] [place] [address] Referring Physician Colon and Rectal Surgery 12/03/1805/06 Abbi Ventura MD [address] [place] [address] [address] [place] [address] Medical Oncologist/User Experience Analyst Medical Oncology 12/03/18 Montse Thompson MD [address] [place] [address] [address] [place] [address] Consulting Physician Gynecologic Oncology 12/03/18 Lela Hardy MD PhD [address] [place] [address] [address] [place] [address] Radiation Oncologist Radiation Oncology 12/23/18 Kianna Bunch MD PhD [facility] [place] [address] Surgeon Surgical Oncology 12/23/18 09/17/21 documented as of this encounter
--- OUTSIDE RECORDS SUMMARY | 2024-04-24 13:40 | XMS_ITS | Encounter Summary ---
Author Organization [facility] Healthcare Address [address] [place] [address] Care Team Providers Care Plastic Frame Inserter Name Role Phone Ravi Smith MD Primary Care Provider [phone] Aft, Kianna Machado MD PhD Unavailable [phone] Santiago Gilbert MD Unavailable [phone] Dmitry Sanderson MD Unavailable [phone] Abbi Ventura MD Unavailable Montse Thompson MD Unavailable [phone] Lela Hardy MD PhD Unavailable [phone] Aft, Kianna Machado MD PhD Unavailable [phone] Reason for Referral * Diagnostic Imaging (Routine) - Closed Specialty Diagnoses / Procedures Referred By Contac t Referred To Contact Diagnoses Malignant neoplasm of upper-inner quadrant of left breast in female, 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) Procedures NM Bone Imaging Whole Body Abbi Ventura MD [address] [facility] [address] [place] [address] Phone: tel: fax: [address] [address] Referral ID Status Reason Start Date Expiration Date Visits Re quested Visits Authorized [id number] Closed 09/29/2020 10/29/2021 2 2 Reason for Visit * Diagnostic Imaging (Routine) - Closed Specialty Diagnoses / Procedures Referred By Vijaya t Referred To Contact Diagnoses Malignant neoplasm of upper-inner quadrant of left breast in female, 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) Procedures NM Bone Imaging Whole Body Abbi Ventura MD [address] [facility] [address] [place] [address] Phone: tel: fax: [address] [address] Referral ID Status Reason Start Date Expiration Date Visits Re quested Visits Authorized [id number] Closed 09/29/2020 10/29/2021 2 2 Encounter Details Date Type Department Care Team (Latest Contact Info) Description 10/06/2020 11:00 AM CDT - 10/06/2020 11:17 AM CDT Hospital Encounter [facility] Radiology [address] [place] [address] Abbi Ventura MD [address] 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 Abbi Ventura MD [facility] PROCEDURES Final Result documented in this encounter Visit Diagnoses Diagnosis Malignant neoplasm of upper-inner quadrant of left breast in female, 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) Malignant neoplasm of descending colon documented in this encounter Administered Medications Inactive Administered Medications - up to 3 most recent administrations Medication Order MAR Action Action Date Dose Rate Site tc-99m medronate (MDP) injection 20 millicurie 20 millicurie, intravenous, Once in imaging, radiopharmaceutical, Starting on Bonnie 10/06/20 at 1202, For 1 dose, Indications: Diagnostic RadiographyIndications:Lexi gnostic Radiography Given 10/06/2020 12:00 PM CDT 19.59 millicuries documented in this encounter Orders Medications Ordered That [place] ht Not Have Been Administered Count Last Ordered Date First Ordered Date tc-99m medronate (MDP) injec tion 20 millicurie 1 10/06/2020 documented in this encounter Care Teams Plastic Frame Inserter Relationship Specialty Start Date End Date Ravi Smith MD PCP - General 11/04/17 09/27/21 AileentKianna MD PhD [address] [place] [address] Surgeon Surgical Oncology 11/22/17 Santiago Gilbert MD [address] [place] [address] Technical Publications Writer Gastroenterology 11/22/17 Dmitry Sanderson MD [address] [place] [address] Referring Physician Colon and Rectal Surgery 12/03/1805/06 Abbi Ventura MD [address] [place] [address] [address] [place] [address] Medical Oncologist/Social Work Therapist Medical Oncology 12/03/18 Montse Thompson MD [address] [place] [address] [address] [place] [address] Consulting Physician Gynecologic Oncology 12/03/18 Lela Hardy MD PhD [address] [place] [address] [address] [place] [address] Radiation Oncologist Radiation Oncology 12/23/18 Kianna Bunch MD PhD [address] [place] [address] Surgeon Surgical Oncology 12/23/18 09/17/21 documented as of this encounter
--- OUTSIDE RECORDS SUMMARY | 2024-04-24 13:40 | XMS_ITS | Encounter Summary ---
Author Organization [facility] Address [address] [place] [address] Phone Care Team Providers Care Restaurant Crew Member Name Role Phone Ravi Smith MD Primary Care Provider [phone] Aft, Kianna Machado MD PhD Unavailable [phone] Santiago Gilbert MD Unavailable [phone] Dmitry Sanderson MD Unavailable [phone] Abbi Ventura MD Unavailable Montse Thompson MD Unavailable Lela Hardy MD PhD Unavailable [phone] Aft, Kianna Machado MD PhD Unavailable [phone] Encounter Details Date Type Department Care Team (Late st Contact Info) Description 10/05/[address] [facility] [address] [place] [address] Abbi Ventura MD [address] [facility] [facility] [address] [place], [place] [id number] Malignant neoplasm of upper-inner quadrant of left breast in female, 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) (Primary Dx) Social History Tobacco Use Types [...] file 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 INSPECTOR OUTSIDE PRODUCTION Gender Identity Not on file Sexual Orientation Not on file documented as of this encounter Plan of Treatment Not on file documented as of this encounter Visit Diagnoses Diagnosis Malignant neoplasm of upper-inner quadrant of left breast in female, estrogen receptor negative (HCC)- Primary documented in this encounter Care Teams Restaurant Crew Member Relationship Specialty Start Date End Date Ravi Smith MD PCP - General 11/04/17 09/27/21 Aft, Kianna Machado MD PhD [address] [place] [address] Surgeon Surgical Oncology 11/22/17 Santiago Gilbert MD [address] [place] [address] Rubber Molder Gastroenterology 11/22/17 Dmitry Sanderson MD [address] [place] [address] Referring Physician Colon and Rectal Surgery 12/03/1805/06 Abbi Ventura MD [address] [place] [address] Medical Oncologist/Gas Substation Operator Medical Oncology 12/03/18 Montse Thompson MD [address] [place] [address] Consulting Physician Gynecologic Oncology 12/03/18 Lela Hardy MD PhD [address] [place] [address] Radiation Oncologist Radiation Oncology 12/23/18 Aft, Kianna Machado MD PhD [address] [facility] [address] [place] [address] Surgeon Surgical Oncology 12/23/18 09/17/21 documented as of this encounter
--- OUTSIDE RECORDS SUMMARY | 2024-04-24 13:40 | XMS_ITS | Encounter Summary ---
Author Organization [facility] [employer] (formerly [employer] of [facility] Address [address] [place] [address] Phone Care Team Providers Care Practice Administrator Name Role Phone Ravi Smith MD Primary Care Provider [phone] Aft, Kianna Machado MD PhD Unavailable Santiago Gilbert MD Unavailable [phone] Dmitry Sanderson MD Unavailable [phone] Abbi Ventura MD Unavailable Montse Thompson MD Unavailable [phone] Lela Hardy MD PhD Unavailable [phone] Aft, Kianna Machado MD PhD Unavailable [phone] Encounter Details Date Type Department Care Team (Late st Contact Info) Description 10/14/2020 10:10 AM CDT Lab [facility] Endocrinology Metabolism and Lipid [address] [facility] 5th [place] [address] [place] [address] Paresthesia; Type 2 diabetes mellitus with other kidney complication, unspecified whether intermediate teacher insulin use (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) HEMOGLOBIN A1C Routine 10/14/2020 10:22 AM CDT Paresthesia Type 2 diabetes mellitus with other kidney complication, unspecified whether senior living insulin use ([facility]) documented in this encounter Results * (ABNORMAL) Albumin Creatinine Ratio, Urine (10/14/2020 10:22 AM CDT) Microalb, Ur 23.5(H) 0.0 - 22.9 mg/L [facility] Random Urine Creatinine 121.8 mg/dL [facility] Microalb/Creat Ratio 19.3 0.0 - 29.9 mg/g [facility] Urine 10/14/2020 10:2 2 AM CDT 10/14/2020 12:02 PM CDT us Lizbeth May MD LAB URINE ORDERABLES Final R esult [facility] * (ABNORMAL) [...] Diagnoses Diagnosis Paresthesia Disturbance of skin sensation Type 2 diabetes mellitus with other kidney complication, unspecified whether intermediate teacher insulin use (HCC) documented in this encounter Care Teams Practice Administrator Relationship Specialty Start Date End Date Ravi Smith MD PCP - General 11/04/17 09/27/21 Aft, Kianna Machado MD PhD [address] [place] [address] Surgeon Surgical Oncology 11/22/17 Santiago Gilbert MD [address] [place] [address] Mill Platform Supervisor Gastroenterology 11/22/17 Dmitry Sanderson MD [address] [place] [address] Referring Physician Colon and Rectal Surgery 12/03/1805/06 Abbi Ventura MD [address] [facility] [address] [place] [address] Medical Oncologist/Drive Man Medical Oncology 12/03/18 Montse Thompson MD [address] [facility] [address] [place] [address] Consulting Physician Gynecologic Oncology 12/03/18 Lela Hardy MD PhD [address] [facility] [address] [place] [address] Radiation Oncologist Radiation Oncology 12/23/18 Aft, Kianna Machado MD PhD [address] [facility] [address] [place] [address] Surgeon Surgical Oncology 12/23/18 09/17/21 documented as of this encounter
--- OUTSIDE RECORDS SUMMARY | 2024-04-24 13:40 | XMS_ITS | Encounter Summary ---
Author Organization [facility] Healthcare [place] Care Team Providers Care Dry Transfer Man Name Role Phone Ravi Smith MD Primary Care Provider [phone] Aft, Kianna Machado MD PhD Unavailable [phone] Santiago Gilbert MD Unavailable [phone] Dmitry Sanderson MD Unavailable [phone] Abbi Ventura MD Unavailable Montse Thompson MD Unavailable [phone] Lela Hardy MD PhD Unavailable [phone] Aft, Kianna Machado MD PhD Unavailable [phone] Encounter Details Date Type Department Care Team (Late st Contact Info) Description [address] 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 Gender Identity Not on file Sexual Orientation Not on file documented as of this encounter Plan of Treatment Not on file documented as of this encounter Procedures Procedure Name Priority Date/Time Associated Diagnosis Comments ECG 12-LEAD Routine 07/26/2020 3:13 PM CDT Irregular heart beat documented in this encounter Results * ECG 12 lead (07/26/2020 3:13 PM CDT) Cristobal Dong MD ECG ORDERABLES Final Result documented in this encounter Visit Diagnoses Diagnosis Irregular heart beat Unspecified cardiac dysrhythmia documented in this encounter Care Teams Dry Transfer Man Relationship Specialty Start Date End Date Ravi Smith MD PCP - General 11/04/17 09/27/21 Aft, Kianna Machado MD PhD [address] [place] [address] Surgeon Surgical Oncology 11/22/17 Santiago Gilbert MD [address] [place] [address] Foreign Agent Gastroenterology 11/22/17 Dmitry Sanderson MD [address] [place] [address] Referring Physician Colon and Rectal Surgery 12/03/1805/06 Abbi Ventura MD [address] [place] [address] Medical Oncologist/Supervisor Small Appliance Assembly Medical Oncology 12/03/18 Montse Thompson MD [address] [place] [address] Consulting Physician Gynecologic Oncology 12/03/18 Lela Hardy MD PhD [address] [place] [address] Radiation Oncologist Radiation Oncology 12/23/18 Aft, Kianna Machado MD PhD [address] [facility] [address] [place] [address] Surgeon Surgical Oncology 12/23/18 09/17/21 documented as of this encounter
--- OUTSIDE RECORDS SUMMARY | 2024-04-24 13:41 | XMS_ITS | Encounter Summary ---
Author Organization [facility] Address [address] [place] [address] Phone Care Team Providers Care Rayon Coner Name Role Phone Ravi Smith MD Primary Care Provider [phone] Aft, Kianna Machado MD PhD Unavailable [phone] Santiago Gilbert MD Unavailable [phone] Dmitry Sanderson MD Unavailable [phone] Abbi Ventura MD Unavailable Montse Thompson MD Unavailable [phone] Lela Hardy MD PhD Unavailable [phone] Aft, Kianna Machado MD PhD Unavailable [phone] Encounter Details Date Type Department Care Team (Late st Contact Info) Description 01/04/2020 Orders Only [facility] Pulmonary [address] [facility] 8th [place] [address] [place] [address] Cristobal Dong MD [address] [place] [address] Social History Tobacco Use Types [...] on file 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 Do not swallow. 1 each 5 01/04/2020 07/26/2020 documented in this encounter Plan of Treatment Not on file documented as of this encounter Visit Diagnoses Not on filedocumented in this encounter Discontinued Medications Medication Sig Discontinue Reason Start Date End Da te fluticasone propion-salmeterol (ADVAIR DISKUS) 250-50 mcg/dose diskus inhaler Inhale 1 puff 2 (two) times a day Rinse mouth with water after use. Do not swallow. Reorder 02/05/2019 01/04/2020 documented as of this encounter Care Teams Rayon Coner Relationship Specialty Start Date End Date Ravi Smith MD PCP - General 11/04/17 09/27/21 Aft, Kianna Machado MD PhD [address] [place] [address] Surgeon Surgical Oncology 11/22/17 Santiago Gilbert MD [address] [place] [address] Cath Lab Radiology Technician Gastroenterology 11/22/17 Dmitry Sanderson MD [address] [place] [address] Referring Physician Colon and Rectal Surgery 12/03/1805/06 Abbi Ventura MD [address] [facility] [address] [place], [place] [id number] Medical Oncologist/Color Checker Roving [employer] Yarn Medical Oncology 12/03/18 Montse Thompson MD [address] [facility] [address] [place] [address] Consulting Physician Gynecologic Oncology 12/03/18 Lela Hardy MD PhD [address] [facility] [address] [place] [address] Radiation Oncologist Radiation Oncology 12/23/18 Aft, Kianna Machado MD PhD [address] [facility] [address] [place], [place] [address] Surgeon Surgical Oncology 12/23/18 09/17/21 documented as of this encounter
--- OUTSIDE RECORDS SUMMARY | 2024-04-24 13:41 | XMS_ITS | Encounter Summary ---
Author Organization [facility] Healthcare Address [address] [place] [address] Care Team Providers Care Cash Applications Coordinator Name Role Phone Ravi Smith MD Primary Care Provider [phone] Aft, Kianna Machado MD PhD Unavailable [phone] Santiago Gilbert MD Unavailable [phone] Dmitry Sanderson MD Unavailable [phone] Birdie Ventura MD Unavailable Montse Thompson MD Unavailable [phone] Lela Hardy MD PhD Unavailable [phone] Aft, Kianna Machado MD PhD Unavailable [phone] Reason for Referral * Diagnostic Imaging (Routine) - Closed Specialty Diagnoses / Procedures [facility] Referred To Contact Radiology Diagnoses 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) Procedures MRI Breast Bilateral W WO Contrast Birdie Ventura MD [address] [facility] [address] [place] [address] Phone: tel: fax: [facility] Referral ID Status Reason Start Date Expiration Date Visits Re quested Visits Authorized [id number] Closed 12/23/2019 01/21/2021 1 1 T LEVELER Reason for Visit * Diagnostic Imaging (Routine) - Closed Specialty Diagnoses / Procedures Referred By Contac t Referred To Contact Radiology Diagnoses 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) Procedures MRI Breast Bilateral W WO Contrast Birdie Ventura MD [address] [facility] [address] [place] [address] Phone: tel: fax: [facility] Referral ID Status Reason Start Date Expiration Date Visits Re quested Visits Authorized [id number] Closed 12/23/2019 01/21/2021 1 1 Encounter Details Date Type Department Care Team (Latest Contact Info) Description 04/19/2020 10:58 AM FIRST LEVELER - 04/19/2020 11:59 PM FIRST LEVELER Hospital Encounter [facility] [address] [place] [address] Birdie Ventura MD [address] [facility] [address] [place] [address] Malignant neoplasm of descending colon (CMS/HCC) Discharge [...] file 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 FIRST LEVELER Gender Identity Not on file Sexual Orientation Not on file documented as of this encounter Medications at Time of Discharge ALPRAZolam (XANAX) 0.25 mg tablet Take 1 tablet (0.25 mg total) by mouth 3 (three) times a day as needed for anxiety 11/07/2017 propranolol LA (INDERAL LA) 60 mg 24 [...] TK 1 C PO QD 09/01/2019 1 fluticasone propion-salmeter oL (ADVAIR DISKUS) 250-50 mcg/dose diskus inhaler Inhale 1 puff 2 (two) times a day Rinse mouth with water after use. Do not swallow. 1 each 5 01/04/2020 1 hydroCHLOROthiaz frederick (HYDRODIURIL) 12.5 mg tabletIndication [...] tablet by mouth daily with dinner 1 documented as of this encounter Discharge Disposition Disposition Code Departure Means Destination Discharge to home or self care documented in this encounter Plan of Treatment Not on file documented as of this encounter Procedures Procedure Name Priority Date/Time Associated Diagnosis Comments MRI BREAST BILATERAL W WO CONTRAST Schedule Routine, Read Routine (OP Routine) 04/19/2020 11:58 AM FIRST LEVELER Malignant neoplasm of descending colon (CMS/HCC) documented in this encounter Results * MRI Breast Bilateral W WO Contrast (04/19/2020 11:58 AM FIRST LEVELER) Anatomical Region Laterality Modality Breast Bilateral Magnetic Resonan ce 04/19/2020 1:33 PM FIRST LEVELER Impressions 04/19/2020 5:19 PM FIRST LEVELER 1. No suspicious abnormality. Stable LEFT breast conservation changes. 2. Annual screening mammography is recommended. 3. Annual breast MRI can be performed as an adjunct to mammography if clinically indicated. OVERALL FINAL ASSESSMENT: BI-RADS Category 2: Benign. Dictated by: Nina Lawrence M.D. The radiology attending physician has personally reviewed this study, and had reviewed and/or edited this written report and agrees with it. Electronically signed by: Amari Akbar M.D. Narrative 04/19/2020 5:19 PM FIRST LEVELER ALEAH GERBER, : 1955 (64 years), , Ordering Provider: BIRDIE VENTURA EXAMINATION: 1. MRI EXAMINATION OF THE BREASTS WITH AND WITHOUT CONTRAST 2. 3D POST PROCESSING ON A DEDICATED 3D WORKSTATION HISTORY: High-risk Screening. ??64-year-old woman with BRCA2 mutation and personal history of invasive ductal carcinoma in the LEFT breast status post BCT with initial lumpectomy in January 2018 and reexcision in November 2018, and completion of radiation therapy in February 2019. DATE OF LAST MENSTRUAL PERIOD: Postmenopausal TECHNIQUE: MRI examination of the breasts per breast tumor protocol with and without gadolinium contrast. ??A dedicated breast imaging coil was used. ??The images were transferred to a breast CAD system for 3D post processing and contrast kinetics analysis. ?? Contrast: Dotarem, 20 ml COMPARISON: Prior breast MRIs from 04/23/2019 and 11/26/2017. Correlation with bilateral diagnostic mammogram and LEFT breast ultrasound from 08/11/2018. BREAST COMPOSITION: Heterogeneous fibroglandular tissue BACKGROUND PARENCHYMAL ENHANCEMENT: Moderate, asymmetric (RIGHT > LEFT) FINDINGS: There are changes of breast conservation therapy in the LEFT breast. No suspicious mass or non-mass enhancement this detected in EITHER breast. No abnormally enlarged lymph nodes are identified in the visualized portions of either axilla. Procedure Note Amari Akbar MD - 04/19/2020 ALEAH GERBER, : 1955 (64 years), , Ordering Provider: BIRDIE VENTURA EXAMINATION: 1. MRI EXAMINATION OF THE BREASTS WITH AND WITHOUT CONTRAST 2. 3D POST PROCESSING ON A DEDICATED 3D WORKSTATION HISTORY: High-risk Screening. 64-year-old woman with BRCA2 mutation and personal history of invasive ductal carcinoma in the LEFT breast status post BCT with initial lumpectomy in January 2018 and reexcision in November 2018, and completion of radiation therapy in February 2019. DATE OF LAST MENSTRUAL PERIOD: Postmenopausal TECHNIQUE: MRI examination of the breasts per breast tumor protocol with and without gadolinium contrast. A dedicated breast imaging coil was used. The images were transferred to a breast CAD system for 3D post processing and contrast kinetics analysis. Contrast: Dotarem, 20 ml COMPARISON: Prior breast MRIs from 04/23/2019 and 11/26/2017. Correlation with bilateral diagnostic mammogram and LEFT breast ultrasound from 08/11/2018. BREAST COMPOSITION: Heterogeneous fibroglandular tissue BACKGROUND PARENCHYMAL ENHANCEMENT: Moderate, asymmetric (RIGHT > LEFT) FINDINGS: There are changes of breast conservation therapy in the LEFT breast. No suspicious mass or non-mass enhancement this detected in EITHER breast. No abnormally enlarged lymph nodes are identified in the visualized portions of either axilla. IMPRESSION: 1. No suspicious abnormality. Stable LEFT breast conservation changes. 2. Annual screening mammography is recommended. 3. Annual breast MRI can be performed as an adjunct to mammography if clinically indicated. OVERALL FINAL ASSESSMENT: BI-RADS Category 2: Benign. Dictated by: Nina Lawrence M.D. The radiology attending physician has personally reviewed this study, and had reviewed and/or edited this written report and agrees with it. Electronically signed by: Amari Akbar M.D. 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) Malignant neoplasm of descending colon documented in this encounter Administered Medications Inactive Administered Medications - up to 3 most recent administrations Medication Order MAR Action Action Date Dose Rate Site gadoterate meglumine (DOTAREM) 0.5 mmol/mL injection 20 mL 20 mL, intravenous, Once in imaging, contrast, Starting on Sat04/19/20 at 1134, For 1 dose Given 04/19/2020 11:35 AM FIRST LEVELER 20 mL documented in this encounter Orders Medications Ordered That Jefferson ht Not Have Been Administered Count Last Ordered Date First Ordered Date gadoterate meglumine (DOTARE M) 0.5 mmol/mL injection 20 mL 1 04/19/2020 documented in this encounter Care Teams Cash Applications Coordinator Relationship Specialty Start Date End Date Ravi Smith MD PCP - General 11/04/17 09/27/21 Aft, Kianna Machado MD PhD [address] [place] [address] Surgeon Surgical Oncology 11/22/17 Santiago Gilbert MD [address] [place] [address] Tobacco Stemmer Gastroenterology 11/22/17 Dmitry Sanderson MD [address] [place] [address] Referring Physician Colon and Rectal Surgery 12/03/1805/06 Birdie Ventura MD [address] [place] [address] [address] [place] [address] Medical Oncologist/Project Management Consultant Medical Oncology 12/03/18 Montse Thompson MD [address] [place] [address] Consulting Physician Gynecologic Oncology 12/03/18 Lela Hardy MD PhD [address] [place] [address] [address] [place] [address] Radiation Oncologist Radiation Oncology 12/23/18 Aft, Kianna Machado MD PhD [address] [place] [address] [address] [place] [address] Surgeon Surgical Oncology 12/23/18 09/17/21 documented as of this encounter
--- OUTSIDE RECORDS SUMMARY | 2024-04-24 13:41 | XMS_ITS | Encounter Summary ---
Author Organization [facility] Healthcare Address [address] [place] [address] Care Team Providers Care Autos Disassembler Name Role Phone Ravi Smith MD Primary Care Provider [phone] Aft, Kianna Machado MD PhD Unavailable [phone] Santiago Gilbert MD Unavailable [phone] Dmityr Sanderson MD Unavailable [phone] Abbi Ventura MD Unavailable Montse Thompson MD Unavailable [phone] Lela Hardy MD PhD Unavailable [phone] Aft, Kianna Machado MD PhD Unavailable [phone] Encounter Details Date Type Department Care Team (Late st Contact Info) Description 04/04/2020 Telephone [facility] Radiation Oncology at [facility] [address] [place] [address] Lela Hardy MD PhD [address] [facility] [address] [place] [address] Social History Tobacco Use Types Packs/Day Years [...] file 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 Hardy and Zulema of this call. GER OF PLANNING documented in this encounter Plan of Treatment Not on file documented as of this encounter Visit Diagnoses Not on filedocumented in this encounter Care Teams Autos Disassembler Relationship Specialty Start Date End Date Ravi Smith MD PCP - General 11/04/17 09/27/21 Aft, Kianna Machado MD PhD [address] [place] [address] Surgeon Surgical Oncology 11/22/17 Santiago Gilbert MD [address] [place] [address] Television News Reporter Gastroenterology 11/22/17 Dmitry Sanderson MD [address] [place] [address] Referring Physician Colon and Rectal Surgery 12/03/1805/06 Abbi Ventura MD [address] [place] [address] [address] [place] [address] Medical Oncologist/Reports Analysis Manager Medical Oncology 12/03/18 Montse Thompson MD [address] [place], [place] [address] Consulting Physician Gynecologic Oncology 12/03/18 Lela Hardy MD PhD [address] [place], [place] [address] Radiation Oncologist Radiation Oncology 12/23/18 Aft, Kianna Machado MD PhD [address] [place], [place] [address] Surgeon Surgical Oncology 12/23/18 09/17/21 documented as of this encounter
--- OUTSIDE RECORDS SUMMARY | 2024-04-24 13:41 | XMS_ITS | Encounter Summary ---
Author Organization [facility] Healthcare Address [address] [place] [address] Care Team Providers Care Lead Sustainability Specialist Name Role Phone Ravi Smith MD Primary Care Provider [phone] Aft, Kianna Machado MD PhD Unavailable [phone] Santiago Gilbert MD Unavailable Dmitry Sanderson MD Unavailable [phone] Abbi Ventura MD Unavailable Montse Thompson MD Unavailable [phone] Lela Hardy MD PhD Unavailable [phone] Aft, Kianna Machado MD PhD Unavailable [phone] Encounter Details Date Type Department Care Team (Late st Contact Info) Description 04/05/2020 Telephone [facility] Radiation Oncology at 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 Gender Identity Not on file Sexual Orientation Not on file documented as of this encounter Miscellaneous Notes * Telephone Encounter - Diana Crisostomo MA - 04/05/2020 1:42 PM CST I spoke with pt and she agreed to follow-up appt in radiation oncology 06/2020 ING MACHINE OPERATOR documented in this encounter Plan of Treatment Not on file documented as of this encounter Visit Diagnoses Not on filedocumented in this encounter Care Teams Lead Sustainability Specialist Relationship Specialty Start Date End Date Ravi Smith MD PCP - General 11/04/17 09/27/21 Aft, Kianna Machado MD PhD [address] [place] [address] Surgeon Surgical Oncology 11/22/17 Santiago Gilbert MD [address] [place] [address] Teacher Theater Arts Gastroenterology 11/22/17 Dmitry Sanderson MD [address] [place] [address] Referring Physician Colon and Rectal Surgery 12/03/1805/06 Abbi Ventura MD [address] [place] [address] Medical Oncologist/Fruit Dryer Medical Oncology 12/03/18 Montse Thompson MD [address] [place] [address] Consulting Physician Gynecologic Oncology 12/03/18 Lela Hardy MD PhD [address] [facility] [address] [place] [address] Radiation Oncologist Radiation Oncology 12/23/18 Aft, Kianna Machado MD PhD [address] [facility] [address] [place] [address] Surgeon Surgical Oncology 12/23/18 09/17/21 documented as of this encounter
--- OUTSIDE RECORDS SUMMARY | 2024-04-24 13:41 | XMS_ITS | Encounter Summary ---
Author Organization [facility] Address [address] [place] [address] Phone Care Team Providers Care Canvas Baster Jumpbasting Name Role Phone Ravi Smith MD Primary Care Provider [phone] Aft, Kianna Machado MD PhD Unavailable [phone] Santiago Gilbert MD Unavailable [phone] Dmitry Sanderson MD Unavailable [phone] Abbi Ventura MD Unavailable Montse Thompson MD Unavailable [phone] Lela Hardy MD PhD Unavailable Aft, Kianna Machado MD PhD Unavailable [phone] Reason for Visit * Reason Comments OT Treatment OT Progress Note * Consultation (Routine) - Closed Specialty Diagnoses / Procedures Referred By Contac t Referred To Contact Occupational Therapy Diagnoses 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) Abbi Ventura MD [address] [place] [address] Phone: tel: fax: [facility] [address] [facility] [address] [place] [address] Phone: tel: fax: Referral ID Status Reason Start Date Expiration Date V isits Requested Visits Authorized [id number] Closed Specialty Services Required 12/24/2019 01/22/2021 24 37 Encounter Details Date Type Department Care Team (Late st Contact Info) Description 02/08/2020 1:00 PM CDT Therapy [facility] [address] [place] [address] Nat Loyd, OT [address] [place], [place] [id number] 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); Executive function deficit Social History Tobacco Use Types Packs/Day Years [...] on file 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 I've noticed that I don't look at my vacation planner once I come home, so I can continue on with my day. Falls: no Pain reported: no Cigar Packer present: No. NA Objective: Client participated in treatment session #6 x 55 minutes. Today's session included client only. Problems addressed this visit included: Cognitive deficits related to IADL activities and Memory / Attentions Treatment provided this session: Cognitive intervention Self Management, Coping Strategies, Patient/Caregiver Education, Community/work integration training, Exercise, Stretching, ADL retraining and IADL retraining and Education of POC and CO-OP approach, Awareness training, Action planning (HEP) Ct described use of memory strategies occasionally. ACTION PLAN / Home activity program review and revision: Plan # 1 Cognitive Skill Category: planning ; memory and attention Timeframe: One Week Activity GOAL: Complete all tasks / errands thoroughly each day. PLAN: Continue to work on use of vacation planner sheets. DO / CHECK: Ct used vacation planner pages successfully ~50% of time. Ct realized that she does not check her vacation planner again once she comes home and she also forgets to check her list when she is in the stores. Ct has not put pages in the binder and it is difficult to keep them together and she realized thatshe likes to refer back to them and therefore doesn't want to discard them. Ct also reports that she puts many things on one day and it ends up being too much. OT Intervention: Ct participated in guided discovery and problem solving of barriers to planning and organization strategy use / current plan and developed revised plan. Revised Plan: Buy a vacation planner that will help her plan the whole week instead of just one day at a time, in order to balance activities throughout the week better. Use mantra park-it and plan it when she comes home and puts her car in park, she will try to stop and think about what she plans/wants to accomplish when she gets home by looking at her vacation planner before going into the house. Confidence Level: Client states 7 / 10 confidence in ability to complete plan within timeframe. New ACTION PLANs developed. Ct participated in guided discussion with Jamarcus Solorzano and facilitation from OT. Ct reports, I don't usually eat anything until 3pm . Ct verbalized understanding of importance of nutrition in the role of cognitive performance and in the management of diabetes. Ct also identified that she sees her morning medication but she procrastinates taking it daily. Action Plan # 2 Goal: Eat a Healthy Diet Cognitive Skill Category: planning Timeframe: One Week Activity: Prepare / eat balanced breakfast and take a.m. medication with breakfast. Plan: Eat by 10am at home. Purchase simple ingredients including yogurt, loose granola, and frozen strawberries. Prepare fritatta bites to freeze and easily microwave in the morning. Have medicationsout where she can see them and then take them as soon as she sees them in the morning including just do it mantra use. Confidence Level: Client states 10 / 10 confidence in ability to complete plan within timeframe. Assessment: Ct demonstrates progression toward goals as evidenced by improved use of memory strategies during session activities and progress with her action plan goal. Ct will benefit from continuedskilled OT intervention for education and training to increase independence, safety, participation,and satisfaction in ADL/IADL. Goals: Goals for Occupational Therapy Intervention Goal Status / Date Updated Due by: STG1 Complete ADL/IADL/physical assessments to further guide POC and Goals -balance -SRSI / COPM New 01/04/20 02/18/20 STG2 Complete executive function assessment (WCPA) to further guide interventions and POC MET 01/29/20 STG3 Complete Cognitive Log x1 week and identify 2 barriers to remembering information MET 01/29/20 STG4 Client will use complete 2 action plans with >50% success using Xuco-kaou-ry-check cognitive strategy MET 01/29/20 STG5 Client will plan daily / weekly routine using energy conservation strategies with min cues follow education. Progressing 02/18/20 LTG1 Client will consistently use cognitive strategies to organize, plan, and follow-through with day/weekly tasks x2 weeks. Progressing 03/28/20 LTG2 Client will complete moderate complexity cognitive task using cognitive strategies and report >8/10 performance satisfaction New 01/04/20 03/28/20 LTG3 Client will independently generate and complete Action Plan for 2 target IADL goals. New 01/04/20 03/28/20 LTG4 Client will report decreased overall fatigue to levels within norm using PROMIS fatigue measure. New 01/04/20 03/28/20 Plan: Continue OT POC. Follow up in 1 week to address cognitive deficits. Plan to continue with action plan and memory strategies. Work on STG1 items. 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)- Primary Malignant neoplasm of descending colon Executive function deficit documented in this encounter Care Teams Canvas Baster Jumpbasting Relationship Specialty Start Date End Date Ravi Smith MD PCP - General 11/04/17 09/27/21 Aft, Kianna Machado MD PhD [address] [place] [address] Surgeon Surgical Oncology 11/22/17 Santiago Gilbert MD [address] [place] [address] Recreation Facility Attendant Gastroenterology 11/22/17 Dmitry Sanderson MD [address] [place] [address] Referring Physician Colon and Rectal Surgery 12/03/1805/06 Abbi Ventura MD [address] [place] [address] [address] [place] [address] Medical Oncologist/Tin Flipper Medical Oncology 12/03/18 Montse Thompson MD [address] [place] [address] [address] [place] [address] Consulting Physician Gynecologic Oncology 12/03/18 Lela Hardy MD PhD [address] [place] [address] [address] [place] [address] Radiation Oncologist Radiation Oncology 12/23/18 Aft, Kianna Machado MD PhD [address] [place] [address] [address] [place] [address] Surgeon Surgical Oncology 12/23/18 09/17/21 documented as of this encounter
--- OUTSIDE RECORDS SUMMARY | 2024-04-24 13:41 | XMS_ITS | Encounter Summary ---
Author Organization [facility] Address [address] [place] [address] Phone Care Team Providers Care Pharmacy Order Entry Technician Name Role Phone Ravi Smith MD Primary Care Provider [phone] Aft, Kianna Machado MD PhD Unavailable [phone] Santiago Gilbert MD Unavailable [phone] Dmitry Sanderson MD Unavailable [phone] Abbi Ventura MD Unavailable Montse Thompson MD Unavailable [phone] Lela Hardy MD PhD Unavailable [phone] Aft, Kianna Machado MD PhD Unavailable [phone] Reason for Referral * (Routine) - Closed Specialty Diagnoses / Procedures Referred By Contac t Referred To Contact Diagnoses VIOLETTE (obstructive sleep apnea) Asthma Procedures Pulmonary Function Test -[facility] PFT [facility]- [facility]; Spirometry, Oxygen Assessment Titration Cristobal Dong MD [address] [facility] [address] [address] [place] [address] Phone: tel: fax: Referral ID Status Reason Start Date Expiration Date Visits Re quested Visits Authorized [id number] Closed 12/01/2019 12/30/2020 1 1 Reason for Visit * (Routine) - Closed Specialty Diagnoses / Procedures Referred By Contac t Referred To Contact Diagnoses VIOLETTE (obstructive sleep apnea) Asthma Procedures Pulmonary Function Test -[facility]FT [facility]- [facility]-8D; Spirometry, Oxygen Assessment Titration Cristobal Dong MD [address] [place] [address] Phone: tel: fax: Referral ID Status Reason Start Date Expiration Date Visits Re quested Visits Authorized [id number] Closed 12/01/2019 12/30/2020 1 1 Encounter Details Date Type Department Care Team (Latest Contact Info) Description 07/26/2020 11:42 AM CDT - 07/26/2020 3:25 PM CDT Hospital Encounter [facility] Pulmonary [address] [facility] [address] [place] [address] VIOLETTE (obstructive sleep apnea); Asthma Discharge Disposition: Discharge to home or self [...] on file 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 Gender Identity Not on file Sexual Orientation [...] TK 1 C PO QD 09/01/2019 1 gabapentin (NEURONTIN) 300 mg capsule Take [...] Diagnosis Comments PULMONARY FUNCTION TEST (PFT) Routine 07/26/2020 12:14 PM CDT VIOLETTE (obstructive sleep apnea) Asthma documented in this encounter Results * Pulmonary Function Test - (07/26/2020 12:14 PM CDT) FVC PRE 2.38 L [facility] FVC %PRE PRED 64 % [facility] FEV1 PRE 1.91 L [facility] FEV1 %PRE PRED 66 % [facility] FEV1/FVC PRE 80.4 % [facility] Anatomical Region Laterality Modality PFT 07/26/2020 11:5 2 AM CDT Narrative 08/01/2020 10:55 AM CDT [facility] Division of Pulmonary & Critical Care Medicine [address] [place] [address]; [place] [address]; [place], [place] ??[address]; [phone] Pulmonary Function Laboratory Pulmonary Stress Test Simple/Oxygen Assessment Patient: Aleah Gerber Date: 07/26/2020 Physician: Iker Ht: 69 in ?? Wt: 242 lbs Room: OP Inside Finisher: Sarah : 1955 Diagnosis: Asthma, VIOLETTE Time(min) Distance (ft)/ Peters O2 L/M SpO2 HR Manny* BP FEV1/ ?% Pred Rest: ?RA 98 77 0 129/74 1.91/66 ? Walk/Bike: ? 1 ??RA 97 101 0 ?? 2 ??RA 98 104 0 ?? 3 ??RA 98 107 1 ?? 4 ??RA 97 112 2 ?? 5 ??RA 97 108 3 ?? 6 min 0 sec ??1170 RA 97 105 3 ?? Recovery: ? 1 ??RA 98 101 1 134/67 1.90/66 3 ??RA 99 85 0 ? *Manny rate of perceived exertion (1-10 dyspnea scale) ?? Austin, CHEST 2003; 123:1408 Walk Test Summary: Six Minute Walk Distance: 1,170 ft Six minute Walk Work [distance (m) x body wt (kg)]: 39,073 kg.m (normal >60,000 kg.m) Oxygen required to maintain SpO2 greater than 90% during six minutes of walking: ??L/M Comments: Zero stops, Patient complains of hip pain with walk Interpretation: Breathing room air, SpO2 is normal at rest and during exercise sufficient to increase pulse from 77 to 112 b/min, SpO2 is stable. ??On this basis, SpO2 is adequate at rest breathing room air and while walking breathing room air. ??This level of exercise is associated with no significant change of FEV1. Cristobal Dong MD By signing this report, the attending pulmonary physician certifies that he/she has personally reviewed and interpreted the graphic and numerical data associated with this pulmonary function study and has reviewed and /or edited a preliminary draft report and agrees with the written final report. PFT performed at:->[facility] PFT [facility]- [facility] Procedure:->Spirometry Procedure:->Oxygen Assessment Titration Cristobal Dong MD PFT ORDERABLES Final Result documented in this encounter Visit Diagnoses Diagnosis VIOLETTE (obstructive sleep apnea) Obstructive sleep apnea (adult) (pediatric) Asthma Unspecified asthma documented in this encounter Care Teams Pharmacy Order Entry Technician Relationship Specialty Start Date End Date Ravi Smith MD PCP - General 11/04/17 09/27/21 Aft, Kianna Machado MD PhD [address] [place] [address] Surgeon Surgical Oncology 11/22/17 Santiago Gilbert MD [address] [place] [address] Chemical Engraver Gastroenterology 11/22/17 Dmitry Sanderson MD [address] [place] [address] Referring Physician Colon and Rectal Surgery 12/03/1805/06 Abbi Ventura MD [address] [place] [address] [address] [place] [address] Medical Oncologist/Financial Retirement Plan Specialist Medical Oncology 12/03/18 Montse Thompson MD [address] [place] [address] [address] [place] [address] Consulting Physician Gynecologic Oncology 12/03/18 Lela Hardy MD PhD [address] [place] [address] [address] [place] [address] Radiation Oncologist Radiation Oncology 12/23/18 Aft, Kianna Machado MD PhD [address] [place] [address] [address] [place] [address] Surgeon Surgical Oncology 12/23/18 09/17/21 documented as of this encounter
--- OUTSIDE RECORDS SUMMARY | 2024-04-24 13:41 | XMS_ITS | Encounter Summary ---
Author Organization [facility] Address [address] [place] [address] Phone Care Team Providers Care Religious Healer Name Role Phone Ravi Smith MD Primary Care Provider [phone] Aft, Kianna Machado MD PhD Unavailable [phone] Santiago Gilbert MD Unavailable [phone] Dmitry Sanderson MD Unavailable [phone] Abbi Ventura MD Unavailable Montse Thompson MD Unavailable [phone] Lela Hardy MD PhD Unavailable [phone] Aft, Kianna Machado MD PhD Unavailable [phone] Encounter Details Date Type Department Care Team (Late st Contact Info) Description 01/07/2020 Telephone [facility] Oncology [address] [place] [address] Mag Duff RMA Social History Tobacco Use Types Packs/Day [...] file 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 Pt states she will have blood work drawn, probably on 12/28/2019, at [facility]. ----- Message ----- From: Fatemeh Zarate RN Sent: 12/24/2019 8:46 AM CDT To: Ftaemeh Zarate RN Pt creatinine level was elevated at 1.46. Need to call pt and advise that she needs to increase fluids consumption and repeat BMP next week at lab of her choice. She can come here or if she would like to go locally, that is fine. DB 12/30/19 Repeat creatinine level was increased at 1.52. Spoke with pt she states that she didn't really increased her fluids. She does recall that she was asked to do so. Advised pt to have a fluid intake of at least 64 oz of fluid a day she said she will double what she currently intakes and we will recheck again on 01/06/20 via [facility] and call pt with result. Pt voiced understanding. PS 01/07/20 Creatinine 1.16. Please advise. PS 01/07/20 Continue to drink more fluids. Abbi Lorenzo 01/07/20 Pt aware of result and voiced understanding on staying hydrated to keep creatinine level wnl. PS documented in this encounter Plan of Treatment Not on file documented as of this encounter Visit Diagnoses Not on filedocumented in this encounter Care Teams Religious Healer Relationship Specialty Start Date End Date Ravi Smith MD PCP - General 11/04/17 09/27/21 Kianna Bunch MD PhD [address] [place] [address] Surgeon Surgical Oncology 11/22/17 Santiago Gilbert MD [address] [place] [address] Child Monitor Gastroenterology 11/22/17 Dmitry Sanderson MD [address] [place] [address] Referring Physician Colon and Rectal Surgery 12/03/1805/06 Abbi Ventura MD [address] [place] [address] [address] [place] [address] Medical Oncologist/Document Examiner Medical Oncology 12/03/18 Montse Thompson MD [address] [place] [address] [address] [place] [address] Consulting Physician Gynecologic Oncology 12/03/18 Leal Hardy MD PhD [address] [place] [address] [address] [place] [address] Radiation Oncologist Radiation Oncology 12/23/18 Kianna Bunch MD PhD [address] [place] [address] [address] [place] [address] Surgeon Surgical Oncology 12/23/18 09/17/21 documented as of this encounter
--- OUTSIDE RECORDS SUMMARY | 2024-04-24 13:41 | XMS_ITS | Encounter Summary ---
Author Organization [facility] Address [address] [place] [address] Phone Care Team Providers Care Funeral Home Assistant Name Role Phone Ravi Smith MD Primary Care Provider [phone] Aft, Kianna Machado MD PhD Unavailable [phone] Santiago Gilbert MD Unavailable [phone] Dmitry Sanderson MD Unavailable [phone] Abbi Ventura MD Unavailable Montse Thompson MD Unavailable [phone] Lela Hardy MD PhD Unavailable [phone] Aft, Kianna Machado MD PhD Unavailable Reason for Visit * Reason Comments OT Treatment OT Progress Note * Consultation (Routine) - Closed Specialty Diagnoses / Procedures Referred By Contac t Referred To Contact Occupational Therapy Diagnoses 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) Abbi Ventura MD [address] [place] [address] Phone: tel: fax: [facility] [address] [facility] [address] [place] [address] Phone: tel: fax: Referral ID Status Reason Start Date Expiration Date V isits Requested Visits Authorized [id number] Closed Specialty Services Required 12/24/2019 01/22/2021 24 37 Encounter Details Date Type Department Care Team (Late st Contact Info) Description 01/25/2020 1:00 PM CDT Therapy [facility] [address] [place] [address] aNt Loyd, OT [address] [place], [place] [id number] Malignant neoplasm of descending colon (CMS/HCC) (Primary [...] on file 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 Falls: no Pain reported: no Senior Oracle Pl Sql Developer present: No. NA Objective: Client participated in treatment session #4 x 55 minutes. Today's session included client [...] occasionally. ACTION PLAN / Home activity program revision: Plan # 1 Cognitive Skill Category: planning ; memory and attention Timeframe: One Week Activity GOAL: Complete all tasks / errands thoroughly each day. PLAN: Ct located a daily list that she likes and is planning to shrink it down and photocopy and spiral bind it into a logistics planner that will fit into her purse easily and then she will try to use that. Plan is to complete task and have logistics planner ready to use within 3 days. DO / CHECK: Is using a notebook that is divided up by daily to do, store list, chore list, 'picking' list. Has learned that she adds more items to her list and therefore she needs to wait to add in times. Checking off items from list is working. Notebook size fits well in her purse. She has purchased a logistics planner with 'to-do sheets. Revising Plan: To put preferred logistics planner pages, print them out, put them in new logistics planner. Take a picture of my day so in case I don't have my logistics planner with me, I will still know Confidence Level: Client states 7 / 10 confidence in ability to complete plan within timeframe. Ct participated in education of energy conservation strategies using handouts and using dynamic interaction and generation of situations in which EC strategies listed can be used. Ct verbalized good understanding of education. Ct verbalized improved use of pacing and planning her days/ week to accommodate her needs for rest and overall stress reduction. Assessment: Ct demonstrates progression toward goals as [...] Goals -balance -SRSI / COPM New 01/04/20 01/29/20 STG2 Complete executive function assessment (WCPA) to further guide interventions and POC MET 01/29/20 STG3 Complete Cognitive Log x1 week and identify 2 barriers to remembering information MET 01/29/20 STG4 Client will use complete 2 action plans with >50% success using Pihr-fnfk-ld-check cognitive strategy Progressing 01/29/20 STG5 Client will plan daily / [...] Health Promotion, Wellness and Adaptation Start Time: 1300 End Time: 1400 Signature: ANNELIESE Sosa OTR/L 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)- Primary Malignant neoplasm of descending colon Executive function deficit documented in this encounter Care Teams Funeral Home Assistant Relationship Specialty Start Date End Date Ravi Smith MD PCP - General 11/04/17 09/27/21 Aft, Kianna Machado MD PhD [address] [place] [address] Surgeon Surgical Oncology 11/22/17 Santiago Gilbert MD [address] [place] [address] Pharmacovigilance Specialist Gastroenterology 11/22/17 Dmitry Sanderson MD [address] [place] [address] Referring Physician Colon and Rectal Surgery 12/03/1805/06 Abbi Ventura MD [address] [facility] [address] [place] [address] Medical Oncologist/Edge Grinder Medical Oncology 12/03/18 Montse Thompson MD [address] [facility] [address] [place] [address] Consulting Physician Gynecologic Oncology 12/03/18 Lela Hardy MD PhD [address] [place] [address] [address] [place] [address] Radiation Oncologist Radiation Oncology 12/23/18 Aft, Kianna Machado MD PhD [address] [facility] [address] [place] [address] Surgeon Surgical Oncology 12/23/18 09/17/21 documented as of this encounter
--- OUTSIDE RECORDS SUMMARY | 2024-04-24 13:41 | XMS_ITS | Encounter Summary ---
Author Organization [facility] Address [address] [place] [address] Phone Care Team Providers Care Belt Sander Stone Name Role Phone Ravi Smith MD Primary Care Provider [phone] Aft, Kianna Machado MD PhD Unavailable [phone] Santiago Gilbert MD Unavailable [phone] Dmitry Sanderson MD Unavailable [phone] Abbi Ventura MD Unavailable Montse Thompson MD Unavailable [phone] Lela Hardy MD PhD Unavailable [phone] Aft, Kianna Machado MD PhD Unavailable [phone] Reason for Visit * Reason Comments OT Initial Eval * Consultation (Routine) - Closed Specialty Diagnoses / Procedures Referred By Contac t Referred To Contact Occupational Therapy Diagnoses 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) Abbi Ventura MD [address] [place] [address] Phone: tel: fax: [facility] Occupational Therapy [address] [facility] [address] [place] [address] Phone: tel: fax: Referral ID Status Reason Start Date Expiration Date V isits Requested Visits Authorized [id number] Closed Specialty Services Required 12/24/2019 01/22/2021 24 37 Encounter Details Date Type Department Care Team (Late st Contact Info) Description 01/04/2020 1:00 PM CDT Therapy [facility] Occupational Therapy [address] [place] [address] Nat Loyd, OT [address] [place], [place] [id number] Malignant neoplasm of descending colon (CMS/HCC) (Primary [...] on file 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 Hot Stick Worker present: No. 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 Malignant [...] of irradiation ??? VIOLETTE (obstructive sleep apnea) Medical History: Past Medical History: Diagnosis Date ??? Anemia [...] 2 diabetes mellitus (CMS/HCC) ??? Vascular disease Medications: Current Outpatient Medications Medication Sig Dispense Refill ??? acetaminophen (TYLENOL) 500 mg tablet Take 1,000 mg by mouth every 6 (six) hours as needed for pain ??? albuterol HFA (PROVENTIL HFA,VENTOLIN HFA,PROAIR HFA) 90 mcg/actuation inhaler Inhale 2 puffs every 6 (six) hours as needed for wheezing 1 Inhaler 5 ??? ALPRAZolam (XANAX) 0.25 mg tablet Take 0.25 mg by mouth 3 (three) times a day as needed for anxiety ??? atorvastatin (LIPITOR) 20 mg tablet Take 20 mg by mouth nightly 0 ??? biotin 1 mg capsule Take 1 tablet by mouth every morning ??? cholecalciferol (VITAMIN D3) 2,000 unit capsule Take 2,000 Units by mouth nightly ??? dulaglutide (TRULICITY) 0.75 mg/0.5 mL pen injector Inject 0.75 mg under the skin every 7 days Saturday ??? DULoxetine DR (CYMBALTA) 30 mg capsule TK 1 C PO QD ??? fluticasone propion-salmeteroL (ADVAIR DISKUS) 250-50 mcg/dose diskus inhaler Inhale 1 puff 2 (two) times a day Rinse mouth with water after use. Do not swallow. 1 each 5 ??? gabapentin (NEURONTIN) 300 mg capsule Take 1 capsule (300 mg total) by mouth 3 (three) times a day (Patient not taking: Reported on 11/09/2019) 90 capsule 11 ??? hydroCHLOROthiazide (HYDRODIURIL) 12.5 mg tablet Take 12.5 mg by mouth every morning 0 ??? LORazepam (ATIVAN) 0.5 mg tablet Take 1 tablet (0.5 mg total) by mouth as directed 1 by mouth 30 minutes prior to MRI 2 tablet 0 ??? magnesium oxide 400 mg magnesium capsule Take 1 tablet by mouth 2 (two) times a day ??? mecobalamin, vitamin B12, 1,000 mcg tablet,disintegrating Place under the tongue every morning ??? potassium chloride ER (KLOR-CON) 10 mEq CR tablet Take 1 tablet/capsule (10 mEq total) by mouthdaily (Patient not taking: Reported on 11/09/2019) 30 tablet 6 ??? propranolol LA (INDERAL LA) 60 mg 24 hr capsule TK 1 C PO D ??? sertraline (ZOLOFT) 50 mg tablet Take 50 mg by mouth nightly 3 ??? sitaGLIPtin-metformin (JANUMET XR) 100-1,000 mg tablet, ER multiphase 24 hr Take 1 tablet by mouth daily with dinner No current facility-administered medications for this visit. Allergies: Oxaliplatin and Tetanus vaccines and toxoid Past Medical History Cancer Dx and Year: Breast and Colon Cancer (both dx 2018) Cancer treatment history: Chemotherapy and Radiation completed in 2019 (~1 year ago) Co-Morbidities: Decreased walking ability / mobility noted after she has been sitting for a while for ~25 seconds (undiagnosed); head, hand, and full body (both essential and intentional subjectivelyreported) SUBJECTIVE Client reported problem: I forget a lot. Even simple everyday words. I forget having conversationswith people that I don't remember at all. Sometime I don't believe them. I make lists, but I forgetto look at them. Unable to multi-task. Client/Caregiver goals: Would like to learn strategies to help with her memory. Prior Level of Function: All executive function / cognition perceived as WNL Onset of reported problem: First noticed when she started chemotherapy... at that time, she reports, Sometimes, I couldn't even carry on a conversation. Previous Treatment: none Current Treatment: Occupational Therapy (Initial Eval this date) Living Situation Lives with: spouse Type of home: Owns One story Steps to enter home: 2 ATIF Laundry location: main level Pets in home: none Care-partners, family, and/or social supports: spouse Current amount of assistance received: none Level of satisfaction with current amount of assistance: satisfied Exercise Routine: Does not have an exercise routine 2/2 COPD and 'profuse sweating' and low energy.Would consider [place] water aerobics when they open again. States, I have very little muscle left. OBJECTIVE PROMIS 57 Profile v2.1 was completed by client with the responses as noted below: Physical Function: 1. Are you able to do chores such as vacuuming or yard work? With some difficulty (3) (unable to complete yard-work; vacuuming without difficulty) 2. Are you able to go up [...] in doing two hours of physical labor? Cannot do (1) 6. Does your health now limit you [...] moving heavy furniture? Quite a lot (2) Anxiety: In the past 7 days... 9. I felt fearful Rarely (2) 10. I found it hard to focus on anything other than my anxiety Rarely (2) 11. My worries overwhelmed me Rarely (2) 12. I felt uneasy Rarely (2) 13. I felt nervous Rarely (2) 14. I felt like I needed help for my anxiety Rarely (2) 15. I felt anxious Sometimes (3) 16. I felt tense Sometimes (3) Depression In the past 7 days... 17. I felt worthless Never (1) 18. I felt helpless Never (1) 19. I felt depressed Sometimes (3) 20. I felt hopeless Never (1) 21. I felt like a failure Never (1) 22. I felt unhappy Sometimes (3) 23. I felt that I had nothing to look forward to Never (1) 24. I felt that nothing could cheer me up Never (1) Fatigue During the past 7 days... 25. I feel fatigued Quite a lot (4) 26. I have trouble starting things because I am tired Quite a lot (4) In the past 7 days... 27. How run down did you feel on average? Quite a lot (4) 28. How fatigued were you on average? Quite a lot (4) 29. How much were you bothered by your fatigue on average? Somewhat (3) 30. To what degree did your fatigue interfere with your physical functioning? Quite a lot (4) 31. How often did you have to push yourself to get things done because of your fatigue? Somewhat (3) 32. How often did you have trouble finishing things because of your fatigue? Quite a lot (4) Sleep Disturbance In the past 7 days... 33. My sleep quality was Fair (3) (began CPAP in past 3 months) In the past 7 days... 34. My sleep was refreshing A little bit (4) 35. I had a problem with my sleep Somewhat (3) 36. I had difficulty falling asleep Quite a bit (4) 37. My sleep was restless Somewhat (3) 38. I tried hard to get to sleep Somewhat (3) 39. I worried about not being able to fall asleep A little bit (2) 40. I was satisfied with my sleep Somewhat (3) Ability to Participate in Social Roles and Activities 41. I have trouble doing all of my regular leisure activities with others Sometimes (3) 42. I have trouble doing all of the family activities that I want to do Sometimes (3) 43. I have trouble doing all of my usual work (include work at home) Sometimes (3) 44. I have trouble doing all of the activities with friends that I want to do Sometimes (3) 45. I have to limit the things I do for fun with others Sometimes (3) 46. I have to limit my regular activities with friends Sometimes (3) 47. I have to limit my regular family activities Sometimes (3) 48. I have trouble doing all of the work that is really important to me (include work at home) Usually (2) Pain Interference In the past 7 days... 49. How much did pain interfere with your day to day activities? A little bit (2) 50. How much did pain interfere with work around the home? A little bit (2) 51. How much did pain interfere with your ability to participate in social activities? A little bit(2) 52. How much did pain interfere with your enjoyment in life? Not at all (1) 53. How much did pain interfere with the things you usually do for fun? Not at all (1) 54. How much did pain interfere with your enjoyment of social activities? Not at all (1) 55. 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 How much did pain interfere with your family life? Not at all (1) Pain Intensity In the past 7 days... 57. How would you rate your pain on average? 2 (whole body 2/2 fibromyalgia and scar tissue from breast surgery) Component T Scores: T-Score distributions are standardized [...] between 40-45 indicate mild symptoms. Physical Function: 37.5 *Anxiety: 56.4 *Depression: 50.9 *Fatigue: 63.3 *Sleep Disturbance: 57.2 *Pain Interference: 35.3 Ability to Participate in Social Roles & Activities: 43 OT guided discussion with client to identify the following: Functional Cognitive Concerns: ??? Often forgets to pay bills on time (no 2/2 auto bill pay) ??? Misplaces commonly used items frequently ??? Often misses taking a medication dose ??? Misses appointments all together or goes at the wrong time (no because double checks) ??? Often forgets what they were just about to do; for example walks into a room and forgets what you went there to do. ??? Often has difficulty coming up with specific words (multiple times daily) ??? Forgets details about recent conversations ??? Has trouble remembering details after reading a newspaper, book, or magazine ??? Forgets to buy something at the store or run an errand ??? Often leave something behind that you meant to bring with you ??? Feel easily overwhelmed when managing complex information ??? Have difficulty sorting out information or thoughts ??? Easily distracted when interrupted / loses concentration if interrupted ??? Have trouble starting a task ??? Have trouble finishing tasks Current Cognitive Strategy Use: ??? Auto Bill Pay ??? Use of timer or alarm (for a nap) ??? Ask others to help you remember something or remind you to do something ??? Use of data recovery planner or calendar to write down appointments and things to do (4 or 5: inefficient) ??? Organize information into chunks (ie: grocery list by dairy, deli, produce, etc.) ??? Repeat information out loud (self-narrate / talking) ??? Place items in the same place (unsuccessfully) ??? Put items by the door to help you remember to take them with your when leaving the house ??? Use a journal or notebook to write down things you want to remember (one page - to do list) ??? Use post-it notes (plans to use fuschia) ??? Retrace steps when you have forgotten or lost something ??? Use of rhymes or acronyms ??? Use of association ??? Limit distractions (other people, turn off tv, phone, radio) when completing complex tasks. Treatment provided this session: Client participated in creation of Action Plan with Min Rashad of OT tofacilitate discussion and for guided discovery to generate strategies. Client provided education ofAction Plan. ACTION PLAN / Home activity program: OT provided education and guided discussion regarding use of COOP/ Rwxy-Jcyk-Jq-Check strategy. to develop an action plan to achieve a specific functional goal. OT facilitated client's process to identify an activity goal and develop the following action plan. Plan # 1 Cognitive Skill Category: planning , attention and memory Timeframe: One Week Activity GOAL: To remember all errands when out Action PLAN: Write places to go on a sticky note before leaving and place in car as a reference. Confidence Level: Client states 10 / 10 confidence in ability to complete plan within timeframe. ASSESSMENT Client demonstrates impairments in: Endurance, Activity Tolerance, Pain, Strength and Cognition Environmental Barriers: Home and Community Psychosocial Barriers: None noted Due to the above impairments and barriers, Ct is experiencing functional performance deficits in the following areas: Productive Activities, Leisure Activities, Community Activities, Communication, Home Management, Functional Mobility and Chronic Disease Self Management. Evaluation Complexity: This is a low complexity OT evaluation due to the above brief history and occupational profile, 1-3 performance deficits/functional concerns identified above, resulting in the following activity limitations and participation restrictions: cognitive deficit, fatigue, pain and low complexity of OT analysis and clinical decision making to formulate the plan of care, with analysis of above problem-focused assessment, consideration of straight-forward treatment options, no comorbidities and no modifications of tasks or assistance needed for patient to complete this evaluation. Summary & Clinical Impression: Ct is a 64 y.o. 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 Ct was referred to OT services for chemo brain. She is currently managing ADLswith independence and IADLs with modified independence. She would like to improve performance and satisfaction with ADLs and IADLs. Ct will benefit from continued skilled occupational therapy intervention. Rehabilitation/Habilitation Potential:Excellent Intervention Approach: Cognitive Strategy Training / Metacognitive, Adaptation and Prevention Goals for Occupational Therapy Intervention Goal Status / Date Updated Due by: STG1 Complete ADL/IADL/physical assessments to further guide POC and Goals -balance -SRSI / COPM New 01/04/20 01/29/20 STG2 Complete executive function assessment (WCPA) to further guide interventions and POC New 01/04/20 01/29/20 STG3 Complete Cognitive Log x1 week and identify 2 barriers to remembering information New 01/04/20 01/29/20 STG4 Client will use complete 2 action plans with >50% success using Ggpm-wobb-gm-check cognitive strategy New 01/04/20 01/29/20 STG5 Client will plan daily / weekly routine using energy conservation strategies with min cues follow education. New 01/04/20 02/18/20 LTG1 Client will consistently use cognitive strategies to organize, plan, and follow-through with day/weekly tasks x2 weeks. New 01/04/20 03/28/20 LTG2 Client will complete moderate complexity cognitive task using cognitive strategies and report >8/10 performance satisfaction New 01/04/20 03/28/20 LTG3 Client will independently generate and complete Action Plan for 2 target IADL goals. New 01/04/20 03/28/20 LTG4 Client will report decreased overall fatigue to levels within norm using PROMIS fatigue measure. 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)- Primary Malignant neoplasm of descending colon Executive function deficit documented in this encounter Orders Outpatient Referral Count Last Ordered Date Fir st Ordered Date AMB REFERRAL ORDER TO OCCUPATIONAL THERAPY 1 01/04/2020 documented in this encounter Care Teams Belt Sander Stone Relationship Specialty Start Date End Date Ravi Smith MD PCP - General 11/04/17 09/27/21 Kianna Bunch MD PhD [address] [place] [address] Surgeon Surgical Oncology 11/22/17 Santiago Gilbert MD [address] [place] [address] Dye Stand Loader Gastroenterology 11/22/17 Dmitry Sanderson MD [address] [place] [address] Referring Physician Colon and Rectal Surgery 12/03/1805/06 Abbi Ventura MD [address] [place] [address] [address] [place] [address] Medical Oncologist/Rental Car Ferry Driver Medical Oncology 12/03/18 Montse Thompson MD [address] [place] [address] [address] [place] [address] Consulting Physician Gynecologic Oncology 12/03/18 Lela Hardy MD PhD [address] [place] [address] Radiation Oncologist Radiation Oncology 12/23/18 Kianna Bunch MD PhD [facility] [address] [place] [address] Surgeon Surgical Oncology 12/23/18 09/17/21 documented as of this encounter
--- OUTSIDE RECORDS SUMMARY | 2024-04-24 13:41 | XMS_ITS | Encounter Summary ---
Author Organization [facility] Address [address] [place] [address] Phone Care Team Providers Care Harbor Boat Pilot Name Role Phone Ravi Smith MD Primary Care Provider [phone] Aft, Kianna Machado MD PhD Unavailable [phone] Suzette Gilbert MD Unavailable [phone] Dmitry Sanderson MD Unavailable [phone] Abbi Ventura MD Unavailable Montse Thompson MD Unavailable [phone] Lela Hardy MD PhD Unavailable [phone] Aft, Kianna Machado MD PhD Unavailable [phone] Reason for Visit * Reason Comments OT Progress Note OT Treatment * Consultation (Routine) - Closed Specialty Diagnoses / Procedures Referred By Contac t Referred To Contact Occupational Therapy Diagnoses 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) Abbi Ventura MD [address] [place] [address] Phone: tel: fax: [facility] [address] [facility] 2nd [address] [place] [address] Phone: tel: fax: Referral ID Status Reason Start Date Expiration Date V isits Requested Visits Authorized [id number] Closed Specialty Services Required 12/24/2019 01/22/2021 24 37 Encounter Details Date Type Department Care Team (Late st Contact Info) Description 02/22/2020 1:00 PM CDT Therapy [facility] [address] [place] [address] Nat Loyd, OT [address] [place], [place] [id number] Malignant neoplasm of descending colon (CMS/HCC) (Primary [...] on file 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 I was driving and I had to finally ask her to stop. Falls: no Pain reported: no Chart Reader present: No. NA Objective: Client participated in treatment session #9 x 55 minutes. Client actively and fully participated in guided discussion using meta-cognitive approach incorporating facilitation of own thought patterns, identification of triggers for cognitive lapses and difficulties with executive functioning and potential barriers to goal achievement. Ct was provided moderate assistance ultimately to generate strategies to trial in an effort to improve performance outcomes and success with IADL roles. Areas of concern include: Attending to task, sorting out thoughts, stress management, alternating / shifting attention, easily distracted. Ct reports cognitive lapse as follows: Before leaving for her appointment today, her distracted her while she was collecting all of her items; she forgot her phone. Ct reports feeling upset about forgetting her phone. Ct reported that she felt very good when she got up this morning, but shehas a headache now and realizes that it may be a stress headache. Ct identified strategies: keepinga checklist that she will see when she is leaving the house. Ct also generated strategy to create alocation to place phone and other huggins items throughout her home. ACTION PLAN / Home activity program: OT provided education reinforcement and guided discussion regarding use of COOP/ Vics-Qwmy-Pd-Checkstrategy for current goals and action plans. OT facilitated client's self-reflection of success/performance in completing action plan developed during prior OT session and to develop new or revised action plans as needed: Action Plan # 2 Goal: Eat a Healthy Diet Cognitive Skill Category: planning Timeframe: One Week Activity: Prepare / eat balanced breakfast and take a.m. medication with breakfast. Plan: Eat by 10am at home. Do: Prepared and ate breakfast on 6 of 7 days. Took medications/supplements on all but one day. Bought cereal and has eaten that primarily. Purchased items for other meal ideas, but has not tried that or prepared that. Got off 'healthy' plan while on vacation, but did eat breakfast. Check: Wants to be more consistent now that she is back from vacation. Revised Plan: Would like to keep a food journal to see impact and correlation with brain function when she eats items that have more sugar in them. Plan #3: Gathering items needed before leaving home Cognitive Skill Category: organization ; attention Timeframe: One Week Activity GOAL: Have items in hand that are needed to leave house. Action PLAN: Put a stop sign and checklist at exit door with items needed; create a 'hot-spot' for phone and glasses in the house in various rooms and figure out how to 'suzette' the hot-spot. Sign created during session. Confidence Level: Client states 10 / 10 [...] 2 action plans with >50% success using Vlol-dyyb-ys-check cognitive strategy MET 01/29/20 STG5 Client will [...] to continue with action plan and memory strategies and complex cognitive task completion. (COPM to help id goals. Fatigue management. 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)- Primary Malignant neoplasm of descending colon Executive function deficit documented in this encounter Care Teams Harbor Boat Pilot Relationship Specialty Start Date End Date Ravi Smith MD PCP - General 11/04/17 09/27/21 Aft, Kianna Machado MD PhD [address] [place] [address] Surgeon Surgical Oncology 11/22/17 Suzette Gilbert MD [address] [place] [address] Apparatus Cleaner Gastroenterology 11/22/17 Dmitry Sanderson MD [address] [place] [address] Referring Physician Colon and Rectal Surgery 12/03/1805/06 Abbi Ventura MD [address] [place] [address] [address] [place] [address] Medical Oncologist/Mergers And Acquisitions Manager Medical Oncology 12/03/18 Montse Thompson MD [address] [place] [address] [address] [place] [address] Consulting Physician Gynecologic Oncology 12/03/18 Lela Hardy MD PhD [address] [place] [address] [address] [place] [address] Radiation Oncologist Radiation Oncology 12/23/18 Aft, Kianna Machado MD PhD [address] [place] [address] [address] [place] [address] Surgeon Surgical Oncology 12/23/18 09/17/21 documented as of this encounter
--- OUTSIDE RECORDS SUMMARY | 2024-04-24 13:41 | XMS_ITS | Encounter Summary ---
Author Organization [facility] Address [address] [place] [address] Phone Care Team Providers Care Field Radio Technician Name Role Phone Ravi Smith MD Primary Care Provider [phone] Aft, Kianna Machado MD PhD Unavailable [phone] Santiago Gilbert MD Unavailable [phone] Dmitry Sanderson MD Unavailable [phone] Abbi Ventura MD Unavailable Montse Thompson MD Unavailable [phone] Lela Hardy MD PhD Unavailable Aft, Kianna Machado MD PhD Unavailable [phone] Encounter Details Date Type Department Care Team (Late st Contact Info) Description 04/26/2020 12:15 PM AWARD MACHINE OPERATOR Lab [facility] Oncology [address] [place] [address] Malignant neoplasm of descending colon (CMS/HCC) Social [...] on file 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 AWARD MACHINE OPERATOR Gender Identity Not on file Sexual Orientation Not on file documented as of this encounter Plan of Treatment Not on file documented as of this encounter Procedures Procedure Name Priority Date/Time Associated Diagnosis Comments DIFFERENTIAL AUTO Routine 04/26/2020 12: 44 PM AWARD MACHINE OPERATOR Malignant neoplasm of descending colon (CMS/HCC) CBC WITH AUTO DIFFERENTIAL Routine 04/26/2020 12:44 PM AWARD MACHINE OPERATOR Malignant neoplasm of descending colon (CMS/HCC) CEA Routine 04/26/2020 12:44 PM AWARD MACHINE OPERATOR Malignant neoplasm of descending colon (CMS/HCC) COMPREHENSIVE METABOLIC PANEL Routine 04/26/2020 12:44 PM AWARD MACHINE OPERATOR Malignant neoplasm of descending colon (CMS/HCC) documented in this encounter Results * (ABNORMAL) Differential, auto (04/26/2020 12:44 PM AWARD MACHINE OPERATOR) Neutrophil abs 6.7(H) 1.7 - 6.5 K/cumm [facility] Imm gran abs 0.0 0.0 - 0.1 K/cumm [facility] Lymphocyte abs 1.6 0.8 - 3.3 K/cumm [facility] Monocyte abs 0.5 0.2 - 0.8 K/cumm [facility] Eosinophil abs 1.0(H) 0.0 - 0.5 K/cumm [facility] Basophil abs 0.1 0.0 - 0.1 K/cumm [facility] Neutrophil pct 67.9 % [facility] Comment: Interpretive Data Percent cell count reference ranges are not reported, since discordance with absolute values may lead to misinterpretation of CBC data. Current Interpretive Data was last revised on 2017. Imm gran pct 0.4 % [facility] Comment: Interpretive Data Percent cell count reference ranges are not reported, since discordance with absolute values may lead to misinterpretation of CBC data. Current Interpretive Data was last revised on 2017. Lymphocyte pct 16.1 % [facility] Comment: Interpretive Data Percent cell count reference ranges are not reported, since discordance with absolute values may lead to misinterpretation of CBC data. Current Interpretive Data was last revised on 2017. Monocyte pct 4.9 % [facility] Comment: Interpretive Data Percent cell count reference ranges are not reported, since discordance with absolute values may lead to misinterpretation of CBC data. Current Interpretive Data was last revised on 2017. Eosinophil pct 10.2 % [facility] Comment: Interpretive Data Percent cell count reference ranges are not reported, since discordance with absolute values may lead to misinterpretation of CBC data. Current Interpretive Data was last revised on 2017. Basophil pct 0.5 % [facility] Comment: Interpretive Data Percent cell count reference ranges are not reported, since discordance with absolute values may lead to misinterpretation of CBC data. Current Interpretive Data was last revised on 2017. Blood specimen (specimen) 04/26/2020 12:44 PM AWARD MACHINE OPERATOR 04/26/2020 12:46 PM AWARD MACHINE OPERATOR us Abbi Ventura MD LAB BLOOD ORDERABLES Final Resul t [facility] Department [place] [address] * CBC with auto differential (04/26/2020 12:44 PM AWARD MACHINE OPERATOR) WBC 9.9 3.8 - 9.9 K/cumm [facility] Hgb 12.3 11.9 - 15.5 g/dL [facility] Hct 37.5 35.6 - 45.5 % [facility] Plt 189 150 - 400 K/cumm [facility] MPV 9.8 9.1 - 12.3 fL [facility] RBC 4.02 3.90 - 5.20 M/cumm [facility] MCV 93.3 81.3 - 96.4 fL [facility] MCH 30.6 27.1 - 33.3 pg [facility] MCHC 32.8 32.3 - 35.7 g/dL [facility] RDW CV 13.1 11.1 - 14.9 % [facility] RDW SD 44.7 35.7 - 48.1 fL [facility] NRBC abs 0.00 0.00 - 0.01 K/cumm [facility] Blood specimen (specimen) 04/26/2020 12:44 PM AWARD MACHINE OPERATOR 04/26/2020 12:46 PM AWARD MACHINE OPERATOR us Abbi Ventura MD LAB BLOOD ORDERABLES Final Resul t [facility] Department [place] [address] * (ABNORMAL) Comprehensive metabolic panel (04/26/2020 12:44 PM AWARD MACHINE OPERATOR) Sodium 142 135 - 145 mmol/L [facility] Potassium, pl 3.5 3.3 - 4.9 mmol/L [facility] Chloride 107 97 - 110 mmol/L [facility] CO2 29 22 - 32 mmol/L [facility] Anion gap 6 2 - 15 mmol/L [facility] BUN 21 8 - 25 mg/dL [facility] Creatinine 1.37(H) 0.60 - 1.10 mg/dL [facility] Glucose 125 70 - 199 mg/dL [facility] Comment: Interpretive Data Fasting glucose >/= [...] interpretive data was last revised 2017. Calcium 9.7 8.5 - 10.3 mg/dL [facility] Bilirubin, total 0.4 0.1 - 1.2 mg/dL [facility] Protein, pl 7.1 6.5 - 8.5 g/dL [facility] Albumin 4.2 3.5 - 5.0 g/dL [facility] Alk phos 110 40 - 130 Units/L [facility] ALT 10 7 - 45 Units/L [facility] AST 20 10 - 45 Units/L [facility] Blood specimen (specimen) 04/26/2020 12:44 PM AWARD MACHINE OPERATOR 04/26/2020 12:46 PM AWARD MACHINE OPERATOR Abbi Ventura MD LAB BLOOD ORDERABLES Final Resul t Performing Organization Address [facility] Phone Number [facility] [place] [address] * CEA (04/26/2020 12:44 PM AWARD MACHINE OPERATOR) CEA 1.8 <=5.0 ng/mL [facility] Comment: Interpretative Data: Reference Range: Non-Smokers: 0.0 - 5.0 ng/mL Smokers: 0.0 ? 6.5 ng/mL This test was developed and its performance characteristics determined by the [facility] in a manner consistent with CLIA requirements. This test has not been cleared or approved by the U.S. Food and Drug Administration. Current interpretive data was last revised 2018. Blood specimen (specimen) 04/26/2020 12:44 PM AWARD MACHINE OPERATOR 04/26/2020 2:37 PM AWARD MACHINE OPERATOR Abbi Ventura MD LAB BLOOD ORDERABLES Final Resul t Performing Organization Address [facility] [place] [address] documented in this encounter Visit Diagnoses Diagnosis 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) Malignant neoplasm of descending colon documented in this encounter Orders Appointment Requests Count Last Ordered Date Fi rst Ordered Date ONCBCN LAB APPOINTMENT 1 04/26/2020 documented in this encounter Care Teams Field Radio Technician Relationship Specialty Start Date End Date Ravi Smith MD PCP - General 11/04/17 09/27/21 Aft, Kianna Machado MD PhD [address] [place] [address] Surgeon Surgical Oncology 11/22/17 Santiago Gilbert MD [address] [place] [address] Executive Vice President Of Sales Gastroenterology 11/22/17 Dmitry Sanderson MD [address] [place] [address] Referring Physician Colon and Rectal Surgery 12/03/1805/06 Abbi Ventura MD [address] [place] [address] [address] [place] [address] Medical Oncologist/Oil Field Rig Builder Medical Oncology 12/03/18 Montse Thompson MD [address] [facility] [address] [place] [address] Consulting Physician Gynecologic Oncology 12/03/18 Lela Hardy MD PhD [address] [place] [address] [address] [place] [address] Radiation Oncologist Radiation Oncology 12/23/18 AftKianna MD PhD [address] [place] [address] [address] [place] [address] Surgeon Surgical Oncology 12/23/18 09/17/21 documented as of this encounter
--- OUTSIDE RECORDS SUMMARY | 2024-04-24 13:41 | XMS_ITS | Encounter Summary ---
Author Organization [facility] Address [address] [place] [address] Phone Care Team Providers Care Negative Cutter Name Role Phone Ravi Smith MD Primary Care Provider [phone] Aft, Kianna Machado MD PhD Unavailable [phone] Santiago Gilbert MD Unavailable [phone] Dmitry Sanderson MD Unavailable [phone] Abbi Ventura MD Unavailable Montse Thompson MD Unavailable Lela Hardy MD PhD Unavailable [phone] Aft, Kianna Machado MD PhD Unavailable [phone] Reason for Visit * Reason Comments OT Progress Note OT Treatment * Consultation (Routine) - Closed Specialty Diagnoses / Procedures Referred By Contac t Referred To Contact Occupational Therapy Diagnoses 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) Abbi Ventura MD [address] [place] [address] Phone: tel: fax: [facility] Occupational Therapy [address] [facility] 2[address] [place] [address] Phone: tel: fax: Referral ID Status Reason Start Date Expiration Date V isits Requested Visits Authorized [id number] Closed Specialty Services Required 12/24/2019 01/22/2021 24 37 Encounter Details Date Type Department Care Team (Late st Contact Info) Description 03/28/2020 1:00 PM PHYSICS AND ASTRONOMY PROFESSOR Therapy [facility] Occupational Therapy [address] [place] [address] Nat Loyd, OT [address] [place], [place] [id number] Malignant neoplasm of descending colon (CMS/HCC) (Primary [...] on file 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 PHYSICS AND ASTRONOMY PROFESSOR Gender Identity Not on file Sexual Orientation Not on file documented as of this encounter Progress Notes * Nat Loyd, OT - 03/28/2020 1:00 PM CST OT Treatment Note Aleah Gerber (1955) was seen for outpatient occupational therapy treatment in clinic on 03/28/2020 Subjective: Ct reports, My vacation didn't happen because my daughter got sick. I could have went ahead with the trip, but I didn't even consider that I could go without her until after I cancelled the flight. Falls: no Pain reported: no Refinery Operator Assistant present: No. NA Objective: Client participated in treatment session #11 x 55 minutes. Reviewed ACTION PLAN / Home activity program: Ct states, I'm doing terrible with all these things.It isn't that I don't know what I need to do, but I think my mind is lazy and I have trouble being disciplined. I will do it in my own time. Cognitive Strategy Training: Ct participated in a functional cognitive intervention utilizing a meta- cognitive framework and multi-context approach activities. Ct participated in guided discussion with OT to identify areas for performance improvement, potential barriers to success, and generation of strategies. Activity: Complex Questions, Level 3, Activity and Exercise Schedule Module: 9.7 Instructions: Ct begins independently Pre-activity: not completed this session ??? Carryover, spontaneous noticing of connections/similarities: ??? Anticipation of challenges: ??? Strategy generation: During-activity ??? Strategies observed: attention to huggins features, methods to keep track, stimuli reduction, planning ahead, organized methods and self-monitoring ??? Errors/Symptoms observed: missed weekly classes detail ??? Self-recognition of errors: no ??? Therapist mediation / prompts provided: no ??? Task accuracy: Good (mostly correct, some errors) ??? Time to complete: 10 minutes Post-activity ??? Strategy awareness: identified days of week and columns to look at and then used a deductive reasoning method, beginning with location of classes and then looking at the criteria from there. ??? Identification of challenges: had to re-read instructions several times. ??? Strategy generation: breaking down instructions and making a list to aid in attending to details and ensuring all criteria is considered. 2nd Activity: Complex Questions, Level 3, Sightseeing Schedule Module: 9.13 Instructions: Ct begins independently During-activity ??? Strategies observed: attention to huggins features, methods to keep track, stimuli reduction, planning ahead, organized methods and self-monitoring, made a list of criteria and highlighted one word (irrelevant) on ??? Errors/Symptoms observed: minimal / overlooking details ??? Self-recognition of errors: no ??? Therapist mediation / prompts provided: no ??? Task accuracy: Good (mostly correct, some errors) ??? Time to complete: 10 allocated and then OT requested client stop activity. Post-activity Strategy awareness: identified if they took garcia first and then looked at the meeting location and I/O for indoors or outdoors, Coded days of the week. ID of challenges: missed an item on the list. Something will do differently: read list twice. Assessment:Ct progressing well overall and Ct will benefit from continued skilled OT intervention for education and training to increase independence, safety, participation, and satisfaction in ADL/IADL. Goals: Goals for Occupational [...] 2 action plans with >50% success using Dyid-hyfm-yg-check cognitive strategy MET 01/29/20 STG5 Client will [...] Action Plan for 2 target IADL goals. Progressing (x1) 03/14/20 03/28/20 LTG4 Client will report decreased overall fatigue to levels within norm using PROMIS fatigue measure. Progressing 03/28/20 Plan: Continue OT POC. Follow up in 1 week to address cognitive deficits. Start Time: 1305 End Time: 1400 Signature: ANNELIESE Sosa, OTR/L ICS AND ASTRONOMY PROFESSOR 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)- Primary Malignant neoplasm of descending colon Executive function deficit documented in this encounter Care Teams Negative Cutter Relationship Specialty Start Date End Date Ravi Smith MD PCP - General 11/04/17 09/27/21 Aft, Kianna Machado MD PhD [address] [place] [address] Surgeon Surgical Oncology 11/22/17 Santiago Gilbert MD [address] [place] [address] Customer Orders Clerk Gastroenterology 11/22/17 Dmitry Sanderson MD [address] [place] [address] Referring Physician Colon and Rectal Surgery 12/03/1805/06 Abbi Ventura MD [address] [facility] [address] [place] [address] Medical Oncologist/Variety Lathe Operator Medical Oncology 12/03/18 Montse Thompson MD [address] [facility] [address] [place] [address] Consulting Physician Gynecologic Oncology 12/03/18 Lela Hardy MD PhD [address] [facility] [address] [place] [address] Radiation Oncologist Radiation Oncology 12/23/18 Aft, Kianna Machado MD PhD [address] [facility] [address] [place] [address] Surgeon Surgical Oncology 12/23/18 09/17/21 documented as of this encounter
--- OUTSIDE RECORDS SUMMARY | 2024-04-24 13:41 | XMS_ITS | Encounter Summary ---
Author Organization [facility] Healthcare Address [address] [place] [address] Care Team Providers Care Courseware Developer Name Role Phone Ravi Smith MD Primary Care Provider [phone] Aft, Kianna Machado MD PhD Unavailable Santiago Gilbert MD Unavailable [phone] Dmitry Sanderson MD Unavailable [phone] Abbi Ventura MD Unavailable Montse Thompson MD Unavailable [phone] Lela aHrdy MD PhD Unavailable [phone] Aft, Kianna Machado MD PhD Unavailable [phone] Encounter Details Date Type Department Care Team (Late st Contact Info) Description 04/04/2020 Telephone [facility] Radiation Oncology at [facility] [address] [place] [address] Zulema Dior, EVENT SALES REPRESENTATIVE [address] [facility] [address] [place] [address] Social History Tobacco Use Types Packs/Day Years [...] on file 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 MEDICAL ADMINISTRATOR Gender Identity Not on file Sexual Orientation Not on file documented as of this encounter Miscellaneous Notes * Telephone Encounter - Zulema Dior NP - 04/04/2020 4:13 PM MEDICAL ADMINISTRATOR Patient informed of MRI results in regards to no metastatic disease identified. 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 She reports that she is still having issues with imbalance and is agreeable to consult withphysical therapy for their recommendations. She will let me know wher-e she would like to go for the referral. I will see her for a short interval in 8-12 weeks for evaluation. She knows to call withany concerns in the interim. CAL ADMINISTRATOR documented in this encounter Plan of Treatment Not on file documented as of this encounter Visit Diagnoses Not on filedocumented in this encounter Care Teams Courseware Developer Relationship Specialty Start Date End Date Ravi Smith MD PCP - General 11/04/17 09/27/21 Aft, Kianna Machado MD PhD [address] [place] [address] Surgeon Surgical Oncology 11/22/17 Santiago Gilbert MD [address] [place] [address] Machine Silk Screen Printer Gastroenterology 11/22/17 Dmitry Sanderson MD [address] [place] [address] Referring Physician Colon and Rectal Surgery 12/03/1805/06 Abbi Ventura MD [address] [facility] [address] [place], [place] [id number] Medical Oncologist/Supervisor Plate Forming Medical Oncology 12/03/18 Montse Thompson MD [address] [facility] [address] [place] [address] Consulting Physician Gynecologic Oncology 12/03/18 Lela Hardy MD PhD [address] [facility] [address] [place] [address] Radiation Oncologist Radiation Oncology 12/23/18 Aft, Kianna Machado MD PhD [address] [facility] [address] [place], [place] [id number] Surgeon Surgical Oncology 12/23/18 09/17/21 documented as of this encounter
--- OUTSIDE RECORDS SUMMARY | 2024-04-24 13:41 | XMS_ITS | Encounter Summary ---
Author Organization [facility] Address [address] [place] [address] Phone Care Team Providers Care Project Construction Manager Name Role Phone Ravi Smith MD Primary Care Provider [phone] Aft, Kianna Machado MD PhD Unavailable [phone] Santiago Gilbert MD Unavailable [phone] Dmitry Sanderson MD Unavailable [phone] Abbi Ventura MD Unavailable Montse Thompson MD Unavailable Lela Hardy MD PhD Unavailable [phone] Aft, Kianna Machado MD PhD Unavailable [phone] Encounter Details Date Type Department Care Team (Late st Contact Info) Description 04/26/2020 1:00 PM TUBE BENDER Office Visit [facility] Oncology [address] [place] [address] Vianey Miller, X RAY NURSE [address] [place] [address] Malignant neoplasm of descending colon (CMS/HCC) (Primary [...] on file 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 TUBE BENDER Gender Identity Not on file Sexual Orientation Not on file documented as of this encounter Last Filed Vital Signs Vital Sign Reading Time Taken Comments Blood Pressure 154/75 04/26/2020 12:47 PM TUBE BENDER Pulse 74 04/26/2020 12:47 PM TUBE BENDER Temperature 36.6 ??C (97.9 ??F) 04/26/2020 12:[address] Respiratory Rate 18 04/26/2020 12:47 PM TUBE BENDER Oxygen Saturation 98% 04/26/2020 12:47 PM TUBE BENDER Inhaled Oxygen Concentration - - Weight 106 kg (233 lb 11.2 oz) 04/26/2020 12:47 PM TUBE BENDER Height - - Body Mass Index 34.51 03/30/2020 5:48 PM TUBE BENDER documented in this encounter Progress Notes * Vianey Miller, X RAY NURSE - 04/26/2020 1:00 PM CST The Patient Identifying Data: Aleah Gerber is a 64 y.o. female seen in followup today DIAGNOSIS: [...] ~ 1.4 cm, Grade 3, ER 0, [place] 0, HER-2 IHC 0. Partial mastectomy and [...] Adjuvant radiation therapy completed 02/04/2019. Interval History Returns for follow up. Continues to do fairly well. She has been going to OT for memory and cognitive function, believes that it is helping some. She c/o on and off again diarrhea to soft stools. Sheendorses some depression symptoms, but has not talked with her PCP regarding. Appetite, oral fluid intake and energy levels appropriate. No other complaints. Review of Systems Review of systems positive for symptoms as per interval history. All other review of systems negative. Objective Vitals: Vitals BP 154/75 (BP Location: Right arm) Pulse 74 Temp 36.6 ??C (97.9 ??F) (Oral) Resp 18 Wt 106 kg (233 lb 11.2 oz) LMP (LMP Unknown) SpO2 98% BMI 34.51 kg/m?? PERFORMANCE STATUS: ECOG 1 SKIN: Normal [...] aredisplayed. Labs - Hematology Latest Ref Range 06/17/19 12/23/19 04/26/20 WBC 3.8 - 9.9 K/cumm 6.9 8.1 9.9 Total Hb, POC 11.9 - 15.5 g/dL 11.6 (A) 11.8 (A) 12.3 Hct 35.6 - 45.5 % 34.9 (A) 35.9 37.5 Plt 150 - 400 K/cumm 160 175 189 Neutrophil abs 1.7 - 6.5 K/cumm 4.7 5.4 6.7 (A) Lymphocytes, abs 0.8 - 3.3 K/cumm 1.3 1.7 1.6 (A) Abnormal value Lab Results Component Value Date SODIUM 142 04/26/2020 POTASSIUM 3.5 04/26/2020 CO2 29 04/26/2020 BUNSER 21 04/26/2020 GLUCOSE 125 04/26/2020 CREATININE 1.37 (H) 04/26/2020 CALCIUM 9.7 04/26/2020 CHLORIDE 107 04/26/2020 ALBUMIN 4.2 04/26/2020 AST 20 04/26/2020 ALT 10 04/26/2020 ALKPHOS 110 04/26/2020 BILITOT 0.4 04/26/2020 PROT 7.1 04/26/2020 ANIONGAP 6 04/26/2020 Tumor Marker History Some values may be hidden. Unless noted otherwise, only the newest values recorded on each date aredisplayed. Tumor Markers Latest Ref Range 06/17/19 12/23/19 04/26/20 CEA <=5.0 ng/mL 2.2 1.9 1.8 Comments are available for some flowsheets but are not being displayed. Mri Brain W Wo Contrast Result Date: 04/01/2020 Impression: No evidence of metastatic disease. Dictated by: Ollie Wood M.D. The radiology attending physician has personally reviewed this study, and had reviewed and/or edited this written report and agrees with it. Electronically signed by: Patricia Mehta M.D. Mri Breast Bilateral W Wo Contrast Result Date: 04/19/2020 Impression: 1. No suspicious abnormality. Stable LEFT breast conservation changes. 2. Annual screening mammography is recommended. 3. Annual breast MRI can be performed as an adjunct to mammography if clinically indicated. OVERALL FINAL ASSESSMENT: BI-RADS Category 2: Benign. Ct Chest Abdomen Pelvis With Contrast Result Date: 04/19/2020 Impression: No change when compared to the prior study. Changes of a partial colonic resection but no metastasis or recurrence within the chest, abdomen or pelvis. Electronically signed by: Ovidio Meyers M.D. Recent labs, radiology and pathology reviewed in [facility] ASSESSMENT: T4bN0 disease, Stage IIC colon adenocarcinoma: Yearly CT imaging shows no evidence of recurrence. Asked that she increase her fiber in diet to help maintain appropriate bowel regimen. Colonoscopy last 12/10/2018 showed benign changes. T2N0, Stage IIA triple negative left breast cancer: Breast MRI negative. She is currently not schedule for yearly mammogram in September 2020. Asked that she call Jessica Swanson's office. Complaints of pain in multiple bones and body areas - improved with Cymbalta. Bone Scan negative. MyRisk panel is positive for BRCA2 mutation, and VUS in BRIP1 and NBN: Status post bilateral oophorectomy. She does not want bilateral mastectomy and wants to be monitored closely with alternating Mammograms and Breast MRIs Depression/anxiety: Improved. follow up by Dr. Simms as needed. Asked that she discuss with Dr. Tippey or PCP regarding depression medication. She was agreeable. 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 Stable. PLAN: Continue observation She will call Jessica Swanson's office, schedule Mammogram in September 2020 Asked that she increase fiber in diet to help with on/off loose stools Planning yearly CT CAP in April 2021 for colon cancer observation Planning yearly Breast MRI in April 2021, closely monitoring due to BRCA2 mutation She will return to clinic in December 2020, since she will see surgery in September 2020 Aleah Gerber will follow up as directed above, she was encouraged to call in the interim with questions or concerns. We will continue to monitor and review for side effects from treatment. Vianey Miller, MSN, OCN, ANP Nurse Practitioner, Medical Oncology Architectural Engineer completed by using [employer] Direct speaking software, therefore, transcriptionvariances may occur. BENDER documented in this encounter Plan of Treatment [...] Ordered Date ONCBCN CLINIC APPOINTMENT REQUEST 1 020 documented in this encounter Care Teams Project Construction Manager Relationship Specialty Start Date End Date Ravi Smith MD PCP - General 11/04/17 09/27/21 Aft, Kianna Machado MD PhD [address] [place] [address] Surgeon Surgical Oncology 11/22/17 Santiago Gilbert MD [address] [place] [address] Auto Hauler Gastroenterology 11/22/17 Dmitry Sanderson MD [address] [place] [address] Referring Physician Colon and Rectal Surgery 12/03/1805/06 Abbi Ventura MD [address] [place] [address] [address] [place] [address] Medical Oncologist/Machine Operator Farmworker Medical Oncology 12/03/18 Montse Thompson MD [address] [place] [address] [address] [place] [address] Consulting Physician Gynecologic Oncology 12/03/18 Lela Hardy MD PhD [address] [place] [address] [address] [place] [address] Radiation Oncologist Radiation Oncology 12/23/18 Aft, Kianna Machado MD PhD [address] [place] [address] [address] [place] [address] Surgeon Surgical Oncology 12/23/18 09/17/21 documented as of this encounter
--- OUTSIDE RECORDS SUMMARY | 2024-04-24 13:41 | XMS_ITS | Encounter Summary ---
Author Organization [facility] Address [address] [place] [address] Phone Care Team Providers Care Procurement Cost Coordinator Name Role Phone Ravi Smith MD Primary Care Provider [phone] Aft, Kianna Machado MD PhD Unavailable [phone] Santiago Gilbert MD Unavailable [phone] Dmitry Sanderson MD Unavailable [phone] Abbi Ventura MD Unavailable Montse Thompson MD Unavailable Lela Hardy MD PhD Unavailable [phone] Aft, Kianna Machado MD PhD Unavailable Reason for Visit * Reason Comments OT Progress Note OT Treatment * Consultation (Routine) - Closed Specialty Diagnoses / Procedures Referred By Contac t Referred To Contact Occupational Therapy Diagnoses 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) Abbi Ventura MD [address] [place] [address] Phone: tel: fax: [facility] Occupational Therapy [address] [facility] [address] [place] [address] Phone: tel: fax: Referral ID Status Reason Start Date Expiration Date V isits Requested Visits Authorized [id number] Closed Specialty Services Required 12/24/2019 01/22/2021 24 37 Encounter Details Date Type Department Care Team (Late st Contact Info) Description 04/25/2020 1:00 PM NUCLEAR PROCESS ENGINEER Therapy [facility] Occupational Therapy [address] [place] [address] Nat Loyd, OT [address] [place], [place] [id number] Malignant neoplasm of descending colon (CMS/HCC) (Primary [...] on file 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 NUCLEAR PROCESS ENGINEER Gender Identity Not on file Sexual Orientation Not on file documented as of this encounter Progress Notes * Nat Loyd, OT - 04/25/2020 1:00 PM CST OT Treatment Note Aleah Gerber (1955) was seen for outpatient occupational therapy treatment in clinic on 04/25/2020 Subjective: Ct reports, Everything is wonderful. I'm thinking about getting a job too. Our insurance went up 500%. Falls: no Pain reported: no Children'S Service Supervisor present: No. NA Objective: Client participated in treatment session #12 x 60 minutes. 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 Pros/Cons discussed with greatest pro being extra income... also more structure to her day. 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 Ct has requested to shadow for a day before making a decision. ACTION PLAN / Home activity program: Created by client with guided mediation to break it down into smaller more achievable tasks. Goal: Eat breakfast Activity: Prepare grab and go recipe Plan: Select 1 recipe from cookbook; make shopping list/shop; prepare recipe; eat for breakfast Problem Addressed: Daily Planning Current Status: Completed ~50% of the time. Problem Solving / Strategy Development: Ct reports that she does well on days when she does not have anything else scheduled. On days when she has an appointment, she thinks her day through the nightbefore, but didn't write anything down. Ct reports that when she makes a plan that something alwaysseems to come up and she feels that if she doesn't make a list that she won't set herself up for failure. Plan: View daily plan as a 'loose plan'. A tool to help you make decisions. Strategy Review: Ct reports learning to break items down into do-able, smaller tasks. That use of aplanner is a tool to help me make decisions and lessen the mental energy I have to use to keep things in my mind. Assessment:Ct progressing well overall and Ct will [...] 2 action plans with >50% success using Lxft-nlnt-zk-check cognitive strategy MET 01/29/20 STG5 Client will plan daily / weekly routine using energy conservation strategies with min cues follow education. MET 02/18/20 LTG1 Client will consistently use cognitive strategies to organize, plan, and follow-through with day/weekly tasks x2 weeks. Progressing 06/05/20 LTG2 Client will complete moderate complexity cognitive task using cognitive strategies and report >8/10 performance satisfaction MET 03/28/20 LTG3 Client will independently generate and complete Action Plan for 2 target IADL goals. MET 03/28/20 LTG4 Client will report decreased overall fatigue to levels within norm using PROMIS fatigue measure. Progressing 03/28/20 Plan: Continue OT POC with reduction in frequency per patient request due to changes in insurance. Follow up in 1 month to address cognitive deficits. Repeat PROMIS fatigue measure Start Time: 1305 End Time: 1405 Signature: ANNELIESE Sosa, OTR/L EAR PROCESS ENGINEER 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)- Primary Malignant neoplasm of descending colon Executive function deficit documented in this encounter Care Teams Procurement Cost Coordinator Relationship Specialty Start Date End Date Ravi Smith MD PCP - General 11/04/17 09/27/21 Aft, Kianna Machado MD PhD [address] [place] [address] Surgeon Surgical Oncology 11/22/17 Santiago Gilbert MD [address] [place] [address] Linux System Admin Gastroenterology 11/22/17 Dmitry Sanderson MD [address] [place] [address] Referring Physician Colon and Rectal Surgery 12/03/1805/06 Abbi Ventura MD [address] [place] [address] Medical Oncologist/Janitorial Maintenance Worker Medical Oncology 12/03/18 Montse Thompson MD [address] [place] [address] Consulting Physician Gynecologic Oncology 12/03/18 Lela Hardy MD PhD [address] [facility] [address] [place] [address] Radiation Oncologist Radiation Oncology 12/23/18 Aft, Kianna Machado MD PhD [address] [facility] [address] [place] [address] Surgeon Surgical Oncology 12/23/18 09/17/21 documented as of this encounter
--- OUTSIDE RECORDS SUMMARY | 2024-04-24 13:41 | XMS_ITS | Encounter Summary ---
Author Organization [facility] Address [address] [place] [address] Phone Care Team Providers Care Road Crossing Guard Name Role Phone Ravi Smith MD Primary Care Provider [phone] Aft, Kianna Machado MD PhD Unavailable [phone] Santiago Gilbert MD Unavailable [phone] Dmitry Sanderson MD Unavailable [phone] Abbi Ventura MD Unavailable Montse Thompson MD Unavailable [phone] Lela Hardy MD PhD Unavailable [phone] Aft, Kianna Machado MD PhD Unavailable [phone] Reason for Visit * Reason Comments OT Progress Note OT Treatment * Consultation (Routine) - Closed Specialty Diagnoses / Procedures Referred By Contac t Referred To Contact Occupational Therapy Diagnoses 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) Abbi Ventura MD [address] [place] [address] Phone: tel: fax: [facility] Occupational Therapy [address] [facility] 2[address] [place] [address] Phone: tel: fax: Referral ID Status Reason Start Date Expiration Date V isits Requested Visits Authorized [id number] Closed Specialty Services Required 12/24/2019 01/22/2021 24 37 Encounter Details Date Type Department Care Team (Late st Contact Info) Description 07/11/2020 8:00 AM CLEANING ASSOCIATE Therapy [facility] Occupational Therapy [address] [place] [address] Nat Loyd, OT [address] [place], [place] [id number] Malignant neoplasm of descending colon (CMS/HCC) (Primary [...] file 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 CLEANING ASSOCIATE Gender Identity Not on file Sexual Orientation Not on file documented as of this encounter Progress Notes * Nat Loyd, OT - 07/11/2020 8:00 AM CST OT Treatment Note Aleah Gerber (1955) was seen for outpatient occupational therapy treatment in clinic on 07/11/2020 Subjective: Ct reports, I'm much happier. Falls: no Pain reported: no Slitting Machine Operator Helper present: No. NA Objective: Client participated in treatment session #13 x 60 minutes. Dietary Goals Action plan follow-up: Goal: Eat breakfast-- Ct reports that she has not done this consistently Activity: Prepare [...] andreplace fruit for concentrated sweets once daily. Problem Addressed: Daily Planning Current Status: Client is consistently completing daily plan every couple of days consistently and feels this has been successful. No further intervention indicated at this time. Hayley is clearing clutter from her home and feels that overall her stress level is lower. Assessment:Hayley continues to progress well overall and is using strategies to better manage her dailytasks. Hayley continues to report difficulty managing her dietary needs and diabetes and will benefit from further occupational therapy for self-management of chronic disease. Reduced visits to 1x / month are indicated due to client's improvements. Goals: Goals for Occupational Therapy Intervention Goal [...] 2 action plans with >50% success using Slit-lwmt-ek-check cognitive strategy MET 01/29/20 STG5 Client will [...] within norm using PROMIS fatigue measure. Progressing 08/18/20 LTG5 Increase consumption of healthy choice dietary options to self-rated satisfaction level of 7/10 Progressing 07/11/20 09/17/20 LTG6 Client will use cognitive strategies to complete complex cognitive activity with >80% accuracy. New 07/11/20 09/17/20 Plan: Continue OT POC with revised goals as noted above Start Time: 0800 End Time: 0900 Signature: ANNELIESE Sosa, OTR/L 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)- Primary Malignant neoplasm of descending colon Executive function deficit documented in this encounter Care Teams Road Crossing Guard Relationship Specialty Start Date End Date Ravi Smith MD PCP - General 11/04/17 09/27/21 AileentKianna MD PhD [address] [place] [address] Surgeon Surgical Oncology 11/22/17 Santiago Gilbert MD [address] [place] [address] Adjustment Supervisor Gastroenterology 11/22/17 Dmitry Sanderson MD [address] [place] [address] Referring Physician Colon and Rectal Surgery 12/03/1805/06 Abbi Ventura MD [address] [place] [address] [address] [place] [address] Medical Oncologist/Wheat Inspector Medical Oncology 12/03/18 Montse Thompson MD [address] [place] [address] [address] [place] [address] Consulting Physician Gynecologic Oncology 12/03/18 Lela Hardy MD PhD [address] [place] [address] Radiation Oncologist Radiation Oncology 12/23/18 Kianna Bunch MD PhD [address] [place] [address] Surgeon Surgical Oncology 12/23/18 09/17/21 documented as of this encounter
--- OUTSIDE RECORDS SUMMARY | 2024-04-24 13:41 | XMS_ITS | Encounter Summary ---
Author Organization [facility] Address [address] [place] [address] Phone Care Team Providers Care Mlt Name Role Phone Ravi Smith MD Primary Care Provider [phone] Aft, Kianna Machado MD PhD Unavailable Suzette Gilbert MD Unavailable [phone] Dmitry Sanderson MD Unavailable [phone] Abbi Ventura MD Unavailable Montse Thompson MD Unavailable [phone] Lela Hardy MD PhD Unavailable [phone] Aft, Kianna Machado MD PhD Unavailable [phone] Reason for Visit * Reason Comments OT Treatment OT Progress Note * Consultation (Routine) - Closed Specialty Diagnoses / Procedures Referred By Contac t Referred To Contact Occupational Therapy Diagnoses 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) Abbi Ventura MD [address] [place] [address] Phone: tel: fax: [facility] Occupational Therapy [address] [facility] [address] [place] [address] Phone: tel: fax: Referral ID Status Reason Start Date Expiration Date V isits Requested Visits Authorized [id number] Closed Specialty Services Required 12/24/2019 01/22/2021 24 37 Encounter Details Date Type Department Care Team (Late st Contact Info) Description 01/18/2020 1:00 PM CDT Therapy [facility] Occupational Therapy [address] [place] [address] Nat Loyd, OT [address] [place], [place] [id number] Malignant neoplasm of descending colon (CMS/HCC) (Primary [...] on file 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 Falls: no Pain reported: no An/Syq 13 Nav/C2 Operator present: No. NA Objective: Client participated in treatment session #3 x 65 minutes. Today's session included client only. Problems addressed this visit included: Cognitive deficits related to IADL activities and Memory / Attentions Treatment provided this session: Cognitive intervention Self Management, Coping Strategies, Patient/Caregiver Education, Community/work integration training, Exercise, Stretching, ADL retraining and IADL retraining and Education of POC and CO-OP approach, Awareness training, Action planning (HEP) Weekly Calendar Planning Activity (WCPA) was administered to client. The WCPA is performance based assessment of executive functioning. The WCPA involves accurately organizing a list of detailed appointments and errands into a weekly schedule. Distractions, rules, and the need to manage conflictingappointments are included in the task. Client's performance noted below: WEEKLY CALENDAR PLANNING ACTIVITY: Level II; Version A # Strategies Used: 7 # Effective: 7; # Ineffective: 0 # Rules followed 3 / 5 Activity Entry # entered correctly / # errors 3 # missing 0 Time to complete: 9 mins, 14 seconds Time of 1st entry: 0 min 18 secs Time of 2nd entry: 0 min 58 secs Self Ratings Average: 2 Comments: Ct stated time accurately, but then also said I'm done, but I'm not done , thinking thatshe needed to stop at the 7' suzette. OT restated the rules and ct then resumed task. Two errors due to incomplete details for appointment written and one error was due to starting time too early, but ct recognized and attempted to correct the error. ACTION PLAN / Home activity program revision: Plan # 1 Cognitive Skill Category: planning ; memory and attention Timeframe: One Week Activity GOAL: Complete all tasks / errands thoroughly each day. DO / CHECK: Ct has written out daily plan for errands consistently. Ct reports that the prior plan worked well overall, but when she was in a situation where she used a different vehicle, she put thelist in her pocket instead and did not reference it. She was able to slow down and think it throughhowever and completed errands successfully. Revised Action PLAN: Ct located a daily list that she likes and is planning to shrink it down and photocopy and spiral bind it into a nurse discharge planner that will fit into her purse easily and then she will tryto use that. Plan is to complete task and have nurse discharge planner ready to use within 3 days. Confidence Level: Client states 7 / 10 confidence in ability to complete plan within timeframe. EDUCATION of [employer] Memory Strategies provided this session as follows: W: Write it down R: Repeat and/or Review the information (to yourself or to someone else) A: Associate the information P: Picture the information, object, scenario, etc???. Ct participated in application of strategies during cognitive memory task with Min assistance. Ct participated in a functional cognitive intervention utilizing a meta- cognitive framework and multi-context approach activities. Ct participated in guided discussion with OT to identify areas for performance improvement, potential barriers to success, and generation of strategies. Activity: Shifting, Level 2, Menu 3.7 Instructions: Ct needs additional clarifications/prompts to begin and Ct asks questions or seeks clarification before beginning Pre-activity ??? Carryover, spontaneous noticing of connections/similarities: NA ??? Anticipation of challenges: It will be challenging. ??? Strategy generation: Unsure During-activity ??? Strategies observed: methods to keep track, stimuli reduction and organized methods ; use of memory strategies (association) used to remember details of instructions spontaneously. Chunking, reduction of items, repeating information out loud all used following education reinforcement and OT facilitation / min assistance. ??? Errors/Symptoms observed: Jumped in before reviewing all the information; incomplete searching ??? Self-recognition of errors: yes ??? Therapist mediation / prompts provided: yes ??? Task accuracy: Good (mostly correct, some errors) ??? Time to complete: 10 minutes Post-activity ??? Strategy awareness: Yes ??? Identification of challenges: Partial ??? Strategy generation: Independent Strategy bridging/Connection to other activities: ct to look for opportunities to continue to use memory strategies daily Resource provided for Chemo Brain handout per ct request to have something to give to family members to help them understand what she is going through with the hope of gaining more support rather than feeling laughed at when she makes an error or has trouble remembering something. Assessment: Ct demonstrates progression toward goals as [...] 2 action plans with >50% success using Eryo-xhtb-zu-check cognitive strategy Progressing 01/29/20 STG5 Client will [...] continue with action plan and memory strategies. Discuss Energy Conservation Strategies to address fatigue. 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)- Primary Malignant neoplasm of descending colon Executive function deficit documented in this encounter Care Teams Mlt Relationship Specialty Start Date End Date Ravi Smith MD PCP - General 11/04/17 09/27/21 Aft, Kianna Machado MD PhD [address] [place] [address] Surgeon Surgical Oncology 11/22/17 Suzette Gilbert MD [address] [place] [address] Carpenter'S Assistant Gastroenterology 11/22/17 Dmitry Sanderson MD [address] [place] [address] Referring Physician Colon and Rectal Surgery 12/03/1805/06 Abbi Ventura MD [address] [place] [address] Medical Oncologist/Retail Business Manager Medical Oncology 12/03/18 Montse Thompson MD [address] [place] [address] Consulting Physician Gynecologic Oncology 12/03/18 Lela Hardy MD PhD [address] [place] [address] [address] [place] [address] Radiation Oncologist Radiation Oncology 12/23/18 Aft, Kianna Machado MD PhD [address] [place] [address] Surgeon Surgical Oncology 12/23/18 09/17/21 documented as of this encounter
--- OUTSIDE RECORDS SUMMARY | 2024-04-24 13:41 | XMS_ITS | Encounter Summary ---
Author Organization [facility] Address [address] [place] [address] Phone Care Team Providers Care Ram Press Operator Name Role Phone Ravi Smith MD Primary Care Provider [phone] Aft, Kianna Machado MD PhD Unavailable [phone] Santiago Gilbert MD Unavailable [phone] Dmitry Sanderson MD Unavailable [phone] Abbi Ventura MD Unavailable Montse Thompson MD Unavailable Lela Hardy MD PhD Unavailable [phone] Aft, Kianna Machado MD PhD Unavailable [phone] Encounter Details Date Type Department Care Team (Late st Contact Info) Description 06/21/2020 Telephone [facility] Occupational Therapy [address] [place] [address] Nat Loyd, OT [address] [place] [address] Social History Tobacco Use Types [...] on file 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 scheduled appointment * Telephone Encounter - Nat Loyd OT - 06/21/2020 12:54 PM SOFA INSPECTOR OT called to check in with patient, due to last appointment being cancelled, but not rescheduled. Requested return call. INSPECTOR documented in this encounter Plan of Treatment Not on file documented as of this encounter Visit Diagnoses Not on filedocumented in this encounter Care Teams Ram Press Operator Relationship Specialty Start Date End Date Ravi Smith MD PCP - General 11/04/17 09/27/21 Aft, Kianna Machado MD PhD [address] [place] [address] Surgeon Surgical Oncology 11/22/17 Santiago Gilbert MD [address] [place] [address] Employment Coordinator Gastroenterology 11/22/17 Dmitry Sanderson MD [address] [place] [address] Referring Physician Colon and Rectal Surgery 12/03/1805/06 Abbi Ventura MD [address] [place], [place] [id number] Medical Oncologist/Lap Layer Medical Oncology 12/03/18 Montse Thompson MD [address] [place] [address] Consulting Physician Gynecologic Oncology 12/03/18 Lela Hardy MD PhD [address] [place] [address] Radiation Oncologist Radiation Oncology 12/23/18 Aft, Kianna Machado MD PhD [address] [facility] [address] [place], [place] [address] Surgeon Surgical Oncology 12/23/18 09/17/21 documented as of this encounter
--- OUTSIDE RECORDS SUMMARY | 2024-04-24 13:41 | XMS_ITS | Encounter Summary ---
Author Organization [facility] Address [address] [place] [address] Care Team Providers Care Desktop Publishing Operator Name Role Phone Ravi Smith MD Primary Care Provider [phone] Aft, Kianna Machado MD PhD Unavailable [phone] Santiago Gilbert MD Unavailable [phone] Dmitry Sanderson MD Unavailable [phone] Abbi Ventura MD Unavailable Montse Thompson MD Unavailable [phone] Lela Hardy MD PhD Unavailable [phone] Aft, Kianna Machado MD PhD Unavailable [phone] Trena Obando MD Unavailable [phone] Dat Benito DO Primary Care Provider [phone] Encounter Details Date Type Department Care Team (Late st Contact Info) Description 03/24/[address] [facility] Radiation Oncology at 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 documented as of this encounter Care Teams Desktop Publishing Operator Relationship Specialty Start Date End Date Ravi Smith MD PCP - General 11/04/17 09/27/21 Dat Benito DO [address] [place] [address] PCP - General Internal Medicine 09/28/21 Aft, Kianna Machado MD PhD [address] [place] [address] Surgeon Surgical Oncology 11/22/17 Santiago Gilbert MD [address] [place] [address] Senior Communications Specialist Gastroenterology 11/22/17 Dmitry Sanderson MD [address] [place] [address] Referring Physician Colon and Rectal Surgery 12/03/1805/06 Abbi Ventura MD [address] [facility] [address] [place] [address] Medical Oncologist/Ecological Economist Medical Oncology 12/03/18 Montse Thompson MD [address] [facility] [address] [place] [address] Consulting Physician Gynecologic Oncology 12/03/18 Lela Hardy MD PhD [address] [facility] [address] [place] [address] Radiation Oncologist Radiation Oncology 12/23/18 Aft, Kianna Machado MD PhD [address] [facility] [address] [place] [address] Surgeon Surgical Oncology 12/23/18 09/17/21 Trena Obando MD [address] [place], [place] [id number] Consulting Physician Neurology 09/18/21 documented as of this encounter
--- OUTSIDE RECORDS SUMMARY | 2024-04-24 13:41 | XMS_ITS | Encounter Summary ---
Author Organization [facility] Address [address] [place] [address] Phone Care Team Providers Care Juvenile Justice Officer Name Role Phone Ravi Smith MD Primary Care Provider [phone] Aft, Kianna Machado MD PhD Unavailable [phone] Santiago Gilbert MD Unavailable [phone] Dmitry Sanderson MD Unavailable [phone] Abbi Ventura MD Unavailable Montse Thompson MD Unavailable Lela Hardy MD PhD Unavailable Aft, Kianna Machado MD PhD Unavailable [phone] Reason for Visit * Reason Comments OT Progress Note OT Treatment * Consultation (Routine) - Closed Specialty Diagnoses / Procedures Referred By Contac t Referred To Contact Occupational Therapy Diagnoses 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) Abbi Ventura MD [address] [place] [address] Phone: tel: fax: [facility] Occupational Therapy [address] [facility] 2[address] [place] [address] Phone: tel: fax: Referral ID Status Reason Start Date Expiration Date V isits Requested Visits Authorized [id number] Closed Specialty Services Required 12/24/2019 01/22/2021 24 37 Encounter Details Date Type Department Care Team (Late st Contact Info) Description 02/15/2020 1:00 PM CDT Therapy [facility] Occupational Therapy [address] [place] [address] Nat Loyd, OT [address] [place], [place] [id number] Executive function deficit (Primary Dx); Malignant neoplasm [...] file 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 It is working very well. Falls: no Pain reported: no Assemblies And Installations Inspector present: No. NA Objective: Client participated in treatment session #7 x 55 minutes. Today's session included client only. Pain: Denies pain, but reports increased headaches lately and has seen physician for it. Reports having tremors intermittently (whole body). Ct reports PCP is aware. Problems addressed this visit included: Cognitive deficits related to IADL activities and Memory / Attentions Treatment provided this session: Cognitive intervention Self Management, Coping Strategies, Patient/Caregiver Education, Community/work integration training, Exercise, Stretching, ADL retraining and IADL retraining and Education of POC, Awareness training, Action planning (HEP) ACTION PLAN / Home activity program review and revision: Plan # 1 Cognitive Skill Category: planning ; memory and attention Timeframe: One Week Activity GOAL: Complete all tasks / errands thoroughly each day. PLAN: Buy a systems planner that will help her plan the whole week instead of just one day at a time, in order to balance activities throughout the week better. Use mantra park-it and plan it when she comes home and puts her car in park, she will try to stop and think about what she plans/wants to accomplish when she gets home by looking at her systems planner before going into the house. DO / CHECK: Purchased another systems planner and has used it daily since purchase (6 days ago). park-it and plan-it is being practiced. Notices when she reviews info in her systems planner and to do list before going into the house, that her thoughts are more organized and gathered. Ct is also taking shopping list and systems planner with her into the store. She pulled it out when she was in the back of the store to determine what else she needed to get. Also is telling self to 'walk slow' which helps her slow downher thinking. Revised plan: continue for 1 more week for consistency and habit forming action. Action Plan # 2 Goal: Eat a [...] in ability to complete plan within timeframe. Do: Prepared and ate breakfast on 5 of 7 days. Took medications/supplements on all but one day. Bought cereal and has eaten that primarily. Purchased items for other meal ideas, but has not tried that or prepared that. Check: Noticed a difference in demeanor and energy level when she ate breakfast. Revised Plan: Continue for consistency COGNITIVE STRATEGY TRAINING: Ct participated in a functional cognitive intervention utilizing a meta- cognitive framework and multi-context approach activities. Ct participated in guided discussion with OT to identify areas for performance improvement, potential barriers to success, and generation of strategies. Activity: Entering Information into Schedules, Level 2, Incorporating Memory with and without distraction. And Search and Locate Activities. Instructions: Ct begins independently ??? Pre-activity: NA During-activity ??? Strategies observed: Use of memory strategies and attention to huggins features ??? Errors/Symptoms observed: Occasionally forgot, did not remember all the details and therefore chose the incorrect items. ??? Self-recognition of errors: yes ??? Therapist mediation / prompts provided: yes ??? Task accuracy: Good (mostly correct, some errors) Post-activity ??? Strategy awareness: association; grouping items together. ??? Identification of challenges: Remembering more than 3 things. When distractions were present itwas more challenging. ??? Strategy generation: In the store, I use signs to group together the information from my list. I group the items I need from that section together. When she notices that she gets distracted, just say to myself... just get what you came for. 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) Malignant neoplasm of descending colon documented in this encounter Care Teams Juvenile Justice Officer Relationship Specialty Start Date End Date Ravi Smith MD PCP - General 11/04/17 09/27/21 Aft, Kianna Machado MD PhD [address] [place] [address] Surgeon Surgical Oncology 11/22/17 Santiago Gilbert MD [address] [place] [address] Interactive Account Manager Gastroenterology 11/22/17 Dmitry Sanderson MD [address] [place] [address] Referring Physician Colon and Rectal Surgery 12/03/1805/06 Abbi Ventura MD [address] [place] [address] [address] [place] [address] Medical Oncologist/Veneer Sorter Medical Oncology 12/03/18 Montse Thompson MD [address] [facility] [address] [place] [address] Consulting Physician Gynecologic Oncology 12/03/18 Lela Hardy MD PhD [address] [place] [address] [address] [place] [address] Radiation Oncologist Radiation Oncology 12/23/18 Aft, Kianna Machado MD PhD [address] [place] [address] [address] [place] [address] Surgeon Surgical Oncology 12/23/18 09/17/21 documented as of this encounter
--- OUTSIDE RECORDS SUMMARY | 2024-04-24 13:41 | XMS_ITS | Encounter Summary ---
Author Organization [facility] Healthcare Address [address] [place] [address] Care Team Providers Care Advanced Practice Rn Name Role Phone Ravi Smith MD Primary Care Provider [phone] Aft, Kianna Machado MD PhD Unavailable [phone] Santiago Gilbert MD Unavailable [phone] Dmitry Sanderson MD Unavailable [phone] Abbi Ventura MD Unavailable Montse Thompson MD Unavailable [phone] Lela Hardy MD PhD Unavailable [phone] Aft, Kianna Machado MD PhD Unavailable [phone] Reason for Referral * Diagnostic Imaging (Routine) - Closed Specialty Diagnoses / Procedures Referred By Vijaya simpson Referred To Contact Radiology Diagnoses History of breast cancer Personal history of irradiation Disequilibrium Procedures MRI Brain W WO Contrast Zulema Dior NP [address] [facility] [address] [place] [address] Phone: tel: fax: [facility] Referral ID Status Reason Start Date Expiration Date Visits Re quested Visits Authorized [id number] Closed 03/23/2020 04/22/2021 1 1 Y LEVEL MARKETING REPRESENTATIVE Reason for Visit * Diagnostic Imaging (Routine) - Closed Specialty Diagnoses / Procedures Referred By Contac t Referred To Contact Radiology Diagnoses History of breast cancer Personal history of irradiation Disequilibrium Procedures MRI Brain W WO Contrast Zulema Dior, KAM [address] [facility] [address] LL [address] [address] Phone: tel: fax: [facility] Referral ID Status Reason Start Date Expiration Date Visits Re quested Visits Authorized [id number] Closed 03/23/2020 04/22/2021 1 1 Encounter Details Date Type Department Care Team (Late st Contact Info) Description 03/30/2020 5:45 PM ENTRY LEVEL MARKETING REPRESENTATIVE - 03/30/2020 11:59 PM ENTRY LEVEL MARKETING REPRESENTATIVE Hospital Encounter [facility] Radiology at [facility] [address] [place], [place] [id number] Unknown, Lela Adrian MD PhD [address] [facility] [address] LL [address] [address] Zulema Dior NP [address] [facility] [address] [address] History of breast cancer; Personal history of irradiation; Disequilibrium Discharge Disposition: Discharge to home or self [...] file 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 ENTRY LEVEL MARKETING REPRESENTATIVE Gender Identity Not on file Sexual [...] 30 minutes prior to MRI 2 tablet 12/25/2019 0 mecobalamin, vitamin B12, 1,000 mcg tablet,disintegr ating [...] Comments MRI BRAIN W WO CONTRAST Schedule Routine, Read Routine (OP Routine) 03/30/2020 6:28 PM ENTRY LEVEL MARKETING REPRESENTATIVE History of breast cancer Personal history of irradiation Disequilibrium documented in this encounter Results * MRI Brain W WO Contrast (03/30/2020 6:28 PM ENTRY LEVEL MARKETING REPRESENTATIVE) Anatomical Region Laterality Modality Head and Neck N/A Magnetic Resonan ce 04/01/2020 11:4 3 AM ENTRY LEVEL MARKETING REPRESENTATIVE Impressions 04/01/2020 12:42 PM ENTRY LEVEL MARKETING REPRESENTATIVE No evidence of metastatic disease. Dictated by: Ollie Wood M.D. The radiology attending physician has personally reviewed this study, and had reviewed and/or edited this written report and agrees with it. Electronically signed by: Patricia Mehta M.D. Narrative 04/01/2020 12:42 PM ENTRY LEVEL MARKETING REPRESENTATIVE EXAMINATION: Magnetic resonance imaging (MRI) of the brain and brainstem without and with contrast HISTORY: Breast cancer, evaluation for intracranial metastases. TECHNIQUE: Multiplanar multi-weighted MRI of the brain and brainstem was performed without and with intravenous contrast using the general brain protocol. Contrast information: 20 mL Dotarem COMPARISON: MRI brain dated 02/21/2018. FINDINGS: Scattered bilateral periventricular and subcortical white matter T2/FLAIR hyperintensities, without associated restricted diffusion, are nonspecific, however may represent changes of chronic microvascular ischemic disease. The scalp and calvarium are normal. ?? The superior sagittal sinus demonstrates normal venous flow. ??The corpus callosum is normal in shape and signal intensity. ??The posterior fossa is unremarkable. The pituitary and sella are normal. ??The brainstem and craniocervical junction are unremarkable. ??Right cerebellar developmental venous anomaly is present. Diffusion weighted images reveal no hyperintensities to suggest acute cerebral infarction. ??The susceptibility weighted sequences reveal no evidence of acute or chronic hemorrhage. ??The ventricles are normal in size and position without evidence of hydrocephalus . There are no areas of abnormal contrast enhancement. The paranasal sinuses are normal. ??The visualized portions of the mastoids are unremarkable. ??The orbits appear normal. ??Normal flow voids are demonstrated in the carotid arteries and basilar artery. Procedure Note Patricia Mehta MD - 04/01/2020 EXAMINATION: Magnetic resonance imaging (MRI) of the brain and brainstem without and with contrast HISTORY: Breast cancer, evaluation for intracranial metastases. TECHNIQUE: Multiplanar multi-weighted MRI of the brain and brainstem was performed without and with intravenous contrast using the general brain protocol. Contrast information: 20 mL Dotarem COMPARISON: MRI brain dated 02/21/2018. FINDINGS: Scattered bilateral periventricular and subcortical white matter T2/FLAIR hyperintensities, without associated restricted diffusion, are nonspecific, however may represent changes of chronic microvascular ischemic disease. The scalp and calvarium are normal. The superior sagittal sinus demonstrates normal venous flow. The corpus callosum is normal in shape and signal intensity. The posterior fossa is unremarkable. The pituitary and sella are normal. The brainstem and craniocervical junction are unremarkable. Right cerebellar developmental venous anomaly is present. Diffusion weighted images reveal no hyperintensities to suggest acute cerebral infarction. The susceptibility weighted sequences reveal no evidence of acute or chronic hemorrhage. The ventricles are normal in size and position without evidence of hydrocephalus . There are no areas of abnormal contrast enhancement. The paranasal sinuses are normal. The visualized portions of the mastoids are unremarkable. The orbits appear normal. Normal flow voids are demonstrated in the carotid arteries and basilar artery. IMPRESSION: No evidence of metastatic disease. Dictated by: Ollie Wood M.D. The radiology attending physician has personally reviewed this study, and had reviewed and/or edited this written report and agrees with it. Electronically signed by: Patricia Mehta M.D. Zulema Dior NP IMG MRI PROCEDURES Fi nal Result documented in this encounter Visit Diagnoses Diagnosis History of breast cancer Personal history of malignant neoplasm of breast Personal history of irradiation Personal history of irradiation, presenting hazards to health Disequilibrium Dizziness and giddiness documented in this encounter Administered Medications Inactive Administered Medications - up to 3 most recent administrations Medication Order MAR Action Action Date Dose Rate Site gadoterate meglumine (DOTAREM) 0.5 mmol/mL injection 20 mL 20 mL, intravenous, Once in imaging, contrast, Starting on Sat03/30/20 at 1808, For 1 dose Given 03/30/2020 6:20 PM ENTRY LEVEL MARKETING REPRESENTATIVE 20 mL documented in this encounter Orders Medications Ordered That Jefferson ht Not Have Been Administered Count Last Ordered Date First Ordered Date gadoterate meglumine (DOTARE M) 0.5 mmol/mL injection 20 mL 1 03/30/2020 documented in this encounter Care Teams Advanced Practice Rn Relationship Specialty Start Date End Date Ravi Smith MD PCP - General 11/04/17 09/27/21 AftKianna MD PhD [address] [place] [address] Surgeon Surgical Oncology 11/22/17 Santiago Gilbert MD [address] [place] [address] Grab Jack Man Gastroenterology 11/22/17 Dmitry Sanderson MD [address] [place] [address] Referring Physician Colon and Rectal Surgery 12/03/1805/06 Abbi Ventura MD [address] [place] [address] [address] [place] [address] Medical Oncologist/Substation Wireman Medical Oncology 12/03/18 Montse Thompson MD [address] [place] [address] [address] [place] [address] Consulting Physician Gynecologic Oncology 12/03/18 Lela Hardy MD PhD [address] [place] [address] [address] [place] [address] Radiation Oncologist Radiation Oncology 12/23/18 Kianna Bunch MD PhD [address] [facility] [address] [place] [address] Surgeon Surgical Oncology 12/23/18 09/17/21 documented as of this encounter
--- OUTSIDE RECORDS SUMMARY | 2024-04-24 13:41 | XMS_ITS | Encounter Summary ---
Author Organization [facility] Address [address] [place] [address] Phone Care Team Providers Care Vp Marketing Name Role Phone Ravi Smith MD Primary Care Provider [phone] Aft, Kianna Machado MD PhD Unavailable [phone] Suzette Gilbert MD Unavailable [phone] Dmitry Sanderson MD Unavailable [phone] Abbi Ventura MD Unavailable Montse Thompson MD Unavailable [phone] Lela Hardy MD PhD Unavailable [phone] Aft, Kianna Machado MD PhD Unavailable [phone] Reason for Visit * Reason Comments OT Treatment * Consultation (Routine) - Closed Specialty Diagnoses / Procedures Referred By Contac t Referred To Contact Occupational Therapy Diagnoses 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) Abbi Ventura MD [address] [place] [address] Phone: tel: fax: [facility] Occupational Therapy [address] [facility] [address] [place] [address] Phone: tel: fax: Referral ID Status Reason Start Date Expiration Date V isits Requested Visits Authorized [id number] Closed Specialty Services Required 12/24/2019 01/22/2021 24 37 Encounter Details Date Type Department Care Team (Late st Contact Info) Description 03/14/2020 1:00 PM POT PULLER Therapy [facility] Occupational Therapy [address] [place] [address] Nat Loyd, OT [address] [place] [address] Malignant neoplasm of descending colon [...] file 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 POT PULLER Gender Identity Not on file Sexual Orientation Not on file documented as of this encounter Progress Notes * Nat Loyd, OT - 03/14/2020 1:00 PM CST OT Treatment Note Aleah Gerber (1955) was seen for outpatient occupational therapy treatment in clinic on 03/14/2020 Subjective: Ct reports, The sign by my door is working to help me remember everything I need when I leave the house. I just have to move it every now and then so I don't ignore it. I need to keep the location fresh. Falls: no Pain reported: no Food Mixer present: No. NA Objective: Client participated in treatment session #10 x 55 minutes. Reviewed ACTION PLAN / Home activity program: OT provided education reinforcement and guided discussion using meta-cognitive technique regarding action plans. Ct participated fully in self-reflection of success/performance in completing action plan via OT facilitation. Action Plan # 2 Goal: Eat a [...] on vacation, but did eat breakfast. Check: Feels she has become less consistent with this goal and plans to revisit original plan. Plan #3: Gathering items needed before leaving [...] 'suzette' the hot-spot. Sign created during session. DO: Client reports this has been beneficial and she has moved the sign when she noticed that she was ignoring it. Continue for consistency. Strategies generated for ways to increase self-advocacy and how to help her family members with current car problem. Ct generated strategies with min assistance. Assessment: Ct demonstrates progression toward goals as [...] 2 action plans with >50% success using Upge-yypq-sl-check cognitive strategy MET 01/29/20 STG5 Client will plan daily / weekly routine using energy conservation strategies with min cues follow education. MET 02/18/20 LTG1 Client will consistently use cognitive strategies to organize, plan, and follow-through with day/weekly tasks x2 weeks. Progressing 03/28/20 LTG2 Client will complete moderate complexity cognitive task using cognitive strategies and report >8/10 performance satisfaction Progressing 03/14/20 03/28/20 LTG3 Client will independently generate and complete Action Plan for 2 target IADL goals. Progressing (x1) 03/14/20 03/28/20 LTG4 Client will report decreased overall fatigue to levels within norm using PROMIS fatigue measure. Progressing 03/28/20 Plan: Continue OT POC. Follow up in 1 week to address cognitive deficits. Plan to continue with action plan and memory strategies and complex cognitive task completion using Multi-context activities. 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)- Primary Malignant neoplasm of descending colon Executive function deficit documented in this encounter Care Teams Vp Marketing Relationship Specialty Start Date End Date Ravi Smith MD PCP - General 11/04/17 09/27/21 Aft, Kianna Machado MD PhD [address] [place] [address] Surgeon Surgical Oncology 11/22/17 Suzette Gilbert MD [address] [place] [address] Head Filter Press Tender Gastroenterology 11/22/17 Dmitry Sanderson MD [address] [place] [address] Referring Physician Colon and Rectal Surgery 12/03/1805/06 Abbi Ventura MD [address] [place] [address] [address] [place] [address] Medical Oncologist/Clinical Pathologist Medical Oncology 12/03/18 Montse Thompson MD [address] [facility] [address] [place], [place] [id number] Consulting Physician Gynecologic Oncology 12/03/18 Lela Hardy MD PhD [address] [facility] [address] [place] [address] Radiation Oncologist Radiation Oncology 12/23/18 Aft, Kianna Machado MD PhD [address] [facility] [address] [place] [address] Surgeon Surgical Oncology 12/23/18 09/17/21 documented as of this encounter
--- OUTSIDE RECORDS SUMMARY | 2024-04-24 13:41 | XMS_ITS | Encounter Summary ---
Author Organization [facility] Address [address] [place] [address] Phone Care Team Providers Care Regional Environmental Manager Name Role Phone Ravi Smith MD Primary Care Provider [phone] Aft, Kianna Machado MD PhD Unavailable [phone] Santiago Gilbert MD Unavailable [phone] Dmitry Sanderson MD Unavailable [phone] Abbi Ventura MD Unavailable Montse Thompson MD Unavailable [phone] Lela Hardy MD PhD Unavailable Aft, Kianna Machado MD PhD Unavailable [phone] Encounter Details Date Type Department Care Team (Late st Contact Info) Description 01/12/2020 Telephone [facility] Oncology [address] [place] [address] Sue Valente CNA Social History Tobacco Use [...] on file 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 Gender Identity Not on file Sexual Orientation Not on file documented as of this encounter Miscellaneous Notes * Telephone Encounter - Sue Valente CNA - 01/12/2020 4:10 PM CDT Spoke to patient, rescheduled 04/20 visit to 04/27 documented in this encounter Plan of Treatment Not on file documented as of this encounter Visit Diagnoses Not on filedocumented in this encounter Care Teams Regional Environmental Manager Relationship Specialty Start Date End Date Ravi Smith MD PCP - General 11/04/17 09/27/21 Aft, Kianna Machado MD PhD [address] [place] [address] Surgeon Surgical Oncology 11/22/17 Santiago Gilbert MD [address] [place] [address] Package Sealer Gastroenterology 11/22/17 Dmitry Sanderson MD [address] [place] [address] Referring Physician Colon and Rectal Surgery 12/03/1805/06 Abbi Ventura MD [address] [place] [address] Medical Oncologist/Pediatric Neuropsychologist Medical Oncology 12/03/18 Montse Thompson MD [address] [place] [address] Consulting Physician Gynecologic Oncology 12/03/18 Lela Hardy MD PhD [address] [facility] [address] [place] [address] Radiation Oncologist Radiation Oncology 12/23/18 Aft, Kianna Machado MD PhD [address] [facility] [address] [place] [address] Surgeon Surgical Oncology 12/23/18 09/17/21 documented as of this encounter
--- OUTSIDE RECORDS SUMMARY | 2024-04-24 13:41 | XMS_ITS | Encounter Summary ---
Author Organization [facility] Healthcare Address [address] [place] [address] Care Team Providers Care Journal Box Inspector Name Role Phone Ravi Smith MD Primary Care Provider [phone] Aft, Kianna Machado MD PhD Unavailable [phone] Santiago Gilbert MD Unavailable [phone] Dmitry Sanderson MD Unavailable [phone] Abbi Ventura MD Unavailable Montse Thompson MD Unavailable [phone] Lela Hardy MD PhD Unavailable [phone] Aft, Kianna Machado MD PhD Unavailable [phone] Reason for Referral * Diagnostic Imaging (Routine) - Closed Specialty Diagnoses / Procedures Referred By [facility] t Referred To Contact Radiology Diagnoses History of breast cancer Personal history of irradiation Disequilibrium Procedures MRI Brain W WO Contrast Zulema Dior NP [address] [facility] [address] [place] [address] Phone: tel: fax: [facility] Referral ID Status Reason Start Date Expiration Date Visits Re quested Visits Authorized [id number] Closed 03/23/2020 04/22/2021 1 1 MONITOR Reason for Visit * Reason Comments Follow-up Encounter Details Date Type Department Care Team ([facility] Contact Info) Description 03/23/2020 10:40 AM PVC MONITOR Office Visit [facility] Radiation Oncology at [facility] [address] [place] [address] Shay Nava MD [address] [facility] [address] [place] [address] Zulema Dior NP [address] [facility] [address] [place] [address] Encounter for follow-up examination after completed treatment for malignant neoplasm (Primary Dx); History of breast cancer; Personal history of [...] on file 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 PVC MONITOR Gender Identity Not on file Sexual Orientation Not on file documented as of this encounter Last Filed Vital Signs Vital Sign Reading Time Taken Comments Blood Pressure - - Pulse - - Temperature 36.8 ??C (98.2 ??F) 03/23/2020 1 0:56 AM PVC MONITOR Respiratory Rate - - Oxygen Saturation - - Inhaled Oxygen Concentration - - Weight 108.1 kg (238 lb 4.8 oz) 020 10:56 AM PVC MONITOR Height - - Body Mass Index 35.19 12/01/2019 3:50 PM CDT documented in this encounter Discharge Disposition Disposition Code Departure Means Destination Discharge to home or self care documented in this encounter Progress Notes * Zulema Dior NP - 03/23/2020 10:40 AM CST Radiation Oncologist: Lela Hardy MD PhD Primary Care Physician: Ravi Smith MD Medical Oncologist: Abbi Ventura MD Surgeon: Kianna Bunch MD PhD Kianna Bunch MD PhD Date of Service: 03/23/2020 RADIATION ONCOLOGY FOLLOW UP NOTE IDENTIFYING DATA: Cancer Staging Malignant neoplasm of upper-inner quadrant of left breast in female, 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) Staging form: Breast, AJCC 8th Edition - Pathologic: Stage IIA (pT2, pN0(sn), cM0, G3, ER-, HI-, HER2-) - Signed by Roger Dorsey MD on 12/23/2018 - Clinical: Stage IIB (cT2, cN0, cM0, G3, ER-, HI-, HER2-) - Signed by Lela Hardy MD PhD on 01/01/2019 Encounter Diagnoses Name Primary? Encounter for follow-up examination after completed treatment for malignant neoplasm Yes ??? History of breast cancer ??? Personal history of irradiation 64 yo female with synchronous breast and colon cancers, BRCA2 mutation, declined prophylactic bilateral mastectomy, pending bilateral BSO. 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 She is status post left breast conserving surgeryand sentinel lymph node biopsy with 0/3 nodes, 3.5 cm, no LVI, negative margins. She completed adjuvant AC x 4 followed by left whole breast hypofractionated irradiation to 4256 cGy with a 1000 cGy boost to the surgical bed the prone position on 02/04/19. She presents today for follow up. INTERVAL HISTORY Since we last saw Ms Gerber in clinic on 03/18/19, she has been doing well. She has had no surgicalinterventions, medical developments or medication changes. She has noted no changes in her breasts,no new masses or nodules, axillary adenopathy or nipple discharge. She has moderate tenderness overthe surgical incision. She has been undergoing OT for chemo brain , which she feels is helping. She also reports gait and balance instability and reports multiple falls over the past several months,the most recent being last week. She says the fall last week happened because she tripped over something in the dark. She did experience a headache for two weeks but attributes that to changes in her medications. She reports new onset tremors or palsies but states that her PCP wanted to evaluate itwith brain imaging. She reports chronic low back pain that has been negative for metastatic diseaseon imaging in the past but now feels that her symptoms are progressing and the pain radiates down both legs. She states that she can only walk 20-25 feet before she has to take a rest break, which then can she proceed walking. She is scheduled for CT imaging in April with Dr Ventura. PAST MEDICAL, SURGICAL, FAMILY, AND SOCIAL HISTORY History Last Reviewed by Deyanira Christensen MA on 12/23/2019 at 2:59 PM Sections Reviewed Family, Surgical, Medical, Tobacco, Custom ALLERGIES: Allergies as of 03/23/2020 Reviewed by Nat Loyd OT on 03/20/2020 Severity Noted Reaction Type Reactions Oxaliplatin High 04/23/2018 Infusion Reaction Swollen tongue Throat swelling Tetanus Vaccines And Toxoid Medium 11/12/2017 Swelling, Rash MEDICATIONS: Review Info User Date and Time NAT LOYD OT [[id number]] 03/20/2020 3:05 PM REVIEW OF SYSTEM Review of Systems - Oncology Positive per HPI. Except for the symptoms described above, the remainder of the review of systems is negative. Specifically, except as noted, when asked the patient expressed no complaints relative to constitutional (fever, weight loss), eyes, ears, nose, mouth, throat, neurologic, cardiovascular, pulmonary, breast, GI, , skin, musculoskeletal, endocrine, hematologic/lymphatic, or immunologic systems. PHYSICAL EXAMINATION: LMP (LMP Unknown) There were no vitals filed for this visit. Physical Exam Pain 0/10. General: Alert, cooperative female, in no apparent distress. Neck: Supple. No cervical, supraclavicular or infraclavicular lymphadenopathy bilaterally. Breasts: Exam performed seated in sitting and supine position. Right breast: Normal to inspection and palpation. There are no suspicious skin changes and no palpable masses. Left breast: Normal to inspection and palpation. There are no suspicious skin changes and no palpable masses. Surgical incision is well healed. There is moderate tenderness over the site and the lower breast. Axillae: There is no lymphadenopathy bilaterally. Cosmesis:excellent Skin Toxicity: 0- None Subcutaneous tissue:1- slight induration, loss of subcutaneous fat Cardiac: Regular rate and rhythm, no murmurs, gallops, or rubs. Pulmonary: Clear to auscultation bilaterally. Abdomen: Soft, nontender, nondistended, with no hepatosplenomegaly. Spine: No tenderness to palpation of the spine. Extremities: No cyanosis or edema. Neuro: No deficits on exam. There is mild imbalance with heel-toe walk but otherwise ambulates independently without altered gait. KPS 100 DIAGNOSTIC REPORTS REVIEWED: Imaging: I personally reviewed the imaging and Bilateral Mammogram at [facility] on 08/17/19: BI-RADS Category 2: benign. Bone Scan at [facility] on 06/24/19: No definite scintigraphic evidence of osseous metastatic disease. CT [facility] [place] [facility] [place] 05[place]04[place]19: 1. No metastatic disease or recurrent disease within the chest, abdomenor pelvis. 2. Interval resolution of pulmonary emboli MR bilateral breast at [facility] on 04/23/19: BI-RADS Category 2: benign. Laboratory/Pathology: I personally reviewed the laboratory and pathology values and Hematology Lab History Some values may be hidden. Unless noted otherwise, only the newest values recorded on each date aredisplayed. Labs - Hematology Latest Ref Range 04/01/19 06/17/19 12/23/19 WBC 3.8 - 9.9 K/cumm 7.3 6.9 8.1 Total Hb, POC 11.9 - 15.5 g/dL 11.2 (A) 11.6 (A) 11.8 (A) Hct 35.6 - 45.5 % 33.6 (A) 34.9 (A) 35.9 Plt 150 - 400 K/cumm 156 160 175 Neutrophil abs 1.7 - 6.5 K/cumm 5.6 4.7 5.4 Lymphocytes, abs 0.8 - 3.3 K/cumm 1.0 1.3 1.7 (A) Abnormal value Chem/LFT Lab History Some values may be hidden. Unless noted otherwise, only the newest values recorded on each date aredisplayed. Labs-Chem/LFT Latest Ref Range 06/17/19 12/23/19 12/29/19 01/06/20 Sodium 135 - 146 mmol/L 140 142 140 139 Potassium Lvl 3.5 - 5.3 mmol/L 3.8 3.9 Creatinine 0.50 - 0.99 mg/dL 1.15 (A) 1.46 (A) 1.52 (A) 1.16 (A) Bilirubin, total 0.1 - 1.2 mg/dL 0.5 0.5 AST 10 - 45 Units/L 23 25 ALT 7 - 45 Units/L 13 13 CrCl- Actual Body Weight (Cockcroft-Gault) 86.4 66.5 63.9 83.7 (A) Abnormal value Comments are available for some flowsheets but are not being displayed. Tumor Marker History Some values may be hidden. Unless noted otherwise, only the newest values recorded on each date aredisplayed. Tumor Markers Latest Ref Range 04/01/19 06/17/19 12/23/19 CEA <=5.0 ng/mL 2.4 2.2 1.9 Comments are available for some flowsheets but are not being displayed. ASSESSMENT/PLAN: 64 y.o.female with synchronous breast and colon cancers, BRCA2 mutation, declined prophylactic bilateral mastectomy, pending bilateral BSO. Breast cancer of left upper inner quadrant, invasive ductalcarcinoma, cT2N0, pT2N0, Grade 3, triple negative. She is status post left breast conserving surgery and sentinel lymph node biopsy with 0/3 nodes, 3.5 cm, no LVI, negative margins. She completed adjuvant AC x 4 followed by left whole breast hypofractionated irradiation to 4256 cGy with a 1000 cGy boost to the surgical bed the prone position on 02/04/19. Ms Gerber is 1 year 1 month post radiation with no clinical evidence of recurrent or metastatic disease. I would like to get a brain MR to further evaluate her symptoms and the imbalance noted on exam. She will have imaging in April with Anthony. If she concerned about the progressive back pain that radiates down both legs, she is encouraged to discuss this with Dr Ventura's team to see about moving the scans sooner. RAD ONC PAIN PLAN: The patient is not currently having any pain that requires changes in pain management. DISEASE STATUS: Disease Status: Controlled New metachronous cancer?: No Our follow up with depend on her brain MR. She will follow up with medical and surgical oncology aspreviously arranged. Ms Gerber is encouraged to call with any questions or concerns in the meantime. Zulema Dior, KAM Adult Gerontology Nurse Practitioner Department of Radiation Oncology This patient was seen in collaboration with Dr. Lela Hardy. Lela Hrady MD, PhD Waste Machine Offbearer Department of Radiation Oncology Cosigned by Lela Hardy MD PhD at 04/19/2020 8:19 AM PVC MONITOR MONITOR MONITOR MONITOR MONITOR documented in this encounter Plan of Treatment Not on file documented as of this encounter Results * MRI Brain W WO Contrast (03/30/2020 6:28 PM PVC MONITOR) Anatomical Region Laterality Modality Head and Neck N/A Magnetic Resonan ce 04/01/2020 11:4 3 AM PVC MONITOR Impressions 04/01/2020 12:42 PM PVC MONITOR No evidence of metastatic disease. Dictated by: Ollie Wood M.D. The radiology attending physician has personally reviewed this study, and had reviewed and/or edited this written report and agrees with it. Electronically signed by: Patricia Mehta M.D. Narrative 04/01/2020 12:42 PM PVC MONITOR EXAMINATION: Magnetic resonance imaging (MRI) of the [...] this encounter Visit Diagnoses Diagnosis Encounter for follow-up examination after completed treatment for malignant neoplasm- Primary History of breast cancer Personal history of malignant neoplasm of breast Personal history of irradiation Personal history of irradiation, presenting hazards to health Disequilibrium Dizziness and giddiness History of breast cancer Personal history of malignant neoplasm of breast Personal history of irradiation Personal history of irradiation, presenting hazards to health Disequilibrium Dizziness and giddiness documented in this encounter Discontinued Medications Medication Sig Discontinue Reason Start Date End Da te biotin 1 mg capsuleIndications:Bio tin Deficiency Take 1 tablet by mouth every morning Discontinued by another clinician 03/23/2020 cholecalciferol (VITAMIN D3) 2,000 unit capsuleIndications:Ost eoporosis Take 2,000 Units by mouth nightly Discontinued by another clinician 10/04/2017 03/23/2020 gabapentin (NEURONTIN) 300 mg capsule Take 1 capsule (300 mg total) by mouth 3 (three) times a day Discontinued by another clinician 06/17/2019 03/23/2020 magnesium oxide 400 mg magnesium capsuleIndications:hyp omagnesemia Take 1 tablet by mouth 2 (two) times a day Discontinued by another clinician 03/23/2020 potassium chloride ER (KLOR-CON) 10 mEq CR tablet Take 1 tablet/capsule (10 mEq total) by mouth daily Discontinued by another clinician 04/01/2019 03/23/2020 sertraline (ZOLOFT) 50 mg tabletIndications:Anxi ety with Depression Take 50 mg by mouth nightly Discontinued by another clinician 10/23/2018 03/23/2020 documented as of this encounter Historical Medications * This list may reflect changes made after this encounter. cyclobenzaprine (FLEXERIL) 10 mg tablet TK 1 T PO QHS 02/15/2020 09/29/2020 added in this encounter Care Teams Journal Box Inspector Relationship Specialty Start Date End Date Ravi Smith MD PCP - General 11/04/17 09/27/21 Aft, Kianna Machado MD PhD [address] [place] [address] Surgeon Surgical Oncology 11/22/17 Santiago Gilbert MD [address] [place] [address] Chemical Processing Technician Gastroenterology 11/22/17 Dmitry Sanderson MD [address] [place], [place] [id number] Referring Physician Colon and Rectal Surgery 12/03/1805/06 Abbi Ventura MD [address] [facility] [address] [place] [address] Medical Oncologist/Director Instructional Material Medical Oncology 12/03/18 Montse Thompson MD [address] [facility] [facility] [address] [place] [address] Consulting Physician Gynecologic Oncology 12/03/18 Lela Hardy MD PhD [address] [facility] [address] [place] [address] Radiation Oncologist Radiation Oncology 12/23/18 Aft, Kianna Machado MD PhD [address] [facility] [address] [place], [place] [id number] Surgeon Surgical Oncology 12/23/18 09/17/21 documented as of this encounter
--- OUTSIDE RECORDS SUMMARY | 2024-04-24 13:41 | XMS_ITS | Encounter Summary ---
Author Organization [facility] Address [address] [place] [address] Phone Care Team Providers Care Fund Raiser Name Role Phone Ravi Smith MD Primary Care Provider [phone] Aft, Kianna Machado MD PhD Unavailable [phone] Santiago Gilbert MD Unavailable [phone] Dmitry Sanderson MD Unavailable [phone] Abbi Ventura MD Unavailable Montse Thompson MD Unavailable [phone] Lela Hardy MD PhD Unavailable [phone] Aft, Kianna Machado MD PhD Unavailable [phone] Reason for Visit * Reason Comments OT Treatment OT Progress Note * Consultation (Routine) - Closed Specialty Diagnoses / Procedures Referred By Contac t Referred To Contact Occupational Therapy Diagnoses 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) Abbi Ventura MD [address] [place] [address] Phone: tel: fax: [facility] Occupational Therapy [address] [facility] 2[address] [place] [address] Phone: tel: fax: Referral ID Status Reason Start Date Expiration Date V isits Requested Visits Authorized [id number] Closed Specialty Services Required 12/24/2019 01/22/2021 24 37 Encounter Details Date Type Department Care Team (Late st Contact Info) Description 02/01/2020 1:00 PM CDT Therapy [facility] Occupational Therapy [address] [place] [address] Nat Loyd, OT [address] [place], [place] [id number] Malignant neoplasm of descending colon (CMS/HCC) (Primary [...] file 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 I want to go to [place] after I leave here. I have never looked up anything before and it is so helpful to do that so I couldmake a plan... that is something I wouldn't have done before. Falls: no Pain reported: no Freezer Worker present: No. NA Objective: Client participated in treatment session #5 x 55 minutes. Today's session included client [...] photocopy and spiral bind it into a neighborhood planner that will fit into her purse easily and then she will try to use that. Plan is to complete task and have neighborhood planner ready to use within 3 days. DO / CHECK: Made copies, but pages are too large and they do not fit into her neighborhood planner binder. Use of plain notebook instead and stock pages that came with her binder with partial success. Ct with example, I took a picture of the list the other day instead of taking my neighborhood planner with me and I didn't even look at the list. I'm learning what works and doesn't work for me. OT Intervention: Ct participated in guided discovery and problem solving of barriers to planning and organization strategy use / current plan. Fountain Pen Turner pages were created with ct selecting 5 categories. Copies made for front/back and document sent to client via email. Revised Plan: Ct to print off, hole punch, new neighborhood planner sheets, continue to use notebook as needed to draft out daily/weekly plan and priorities. Ct to stop prior to checking out at the store and before leaving the house and ask, Do I have everything I need after stopping to take a few deep breaths and gather her thoughts. Confidence Level: Client states 7 / 10 confidence in ability to complete plan within timeframe. Action plan: add: Do I have everything I need... stopping for a moment. Sleep: Air on c-pap seems to be escaping; Ct generated plan to call sleep program to asst with problem solving issue. Ct reports poor sleep overall and feels that problems with her C-Pap. Ct reports that her dreams have been pleasant. Assessment: Ct demonstrates progression toward goals as [...] 2 action plans with >50% success using [id number] cognitive strategy MET 01/29/20 STG5 Client will [...] deficit documented in this encounter Care Teams Fund Raiser Relationship Specialty Start Date End Date Ravi Smith MD PCP - General 11/04/17 09/27/21 Aft, Kianna Machado MD PhD [address] [place] [address] Surgeon Surgical Oncology 11/22/17 Santiago Gilbert MD [address] [place] [address] Boiler Setter Gastroenterology 11/22/17 Dmitry Sanderson MD [address] [place] [address] Referring Physician Colon and Rectal Surgery 12/03/1805/06 Abbi Ventura MD [address] [place] [address] Medical Oncologist/Stamper Blocker Medical Oncology 12/03/18 Montse Thompson MD [address] [facility] [address] [place], [place] [id number] Consulting Physician Gynecologic Oncology 12/03/18 Lela Hardy MD PhD [address] [place] [address] Radiation Oncologist Radiation Oncology 12/23/18 Kianna Bunch MD PhD [address] [facility] [address] [place] [address] Surgeon Surgical Oncology 12/23/18 09/17/21 documented as of this encounter
--- OUTSIDE RECORDS SUMMARY | 2024-04-24 13:41 | XMS_ITS | Encounter Summary ---
Author Organization [facility] Address [address] [place] [address] Phone Care Team Providers Care Cardiopulmonary Technician And Eeg Tech Name Role Phone Ravi Smith MD Primary Care Provider [phone] Aft, Kianna Machado MD PhD Unavailable [phone] Santiago Gilbert MD Unavailable [phone] Dmitry Sanderson MD Unavailable [phone] Abbi Ventura MD Unavailable Montse Thompson MD Unavailable [phone] Lela Hardy MD PhD Unavailable [phone] Aft, Kianna Machado MD PhD Unavailable [phone] Reason for Visit * Reason Comments OT Treatment OT Progress Note * Consultation (Routine) - Closed Specialty Diagnoses / Procedures Referred By Contac t Referred To Contact Occupational Therapy Diagnoses 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) Abbi Ventura MD [address] [place] [address] Phone: tel: fax: [facility] Occupational Therapy [address] [facility] 2nd Floor [address] [place] [address] Phone: tel: fax: Referral ID Status Reason Start Date Expiration Date V isits Requested Visits Authorized [id number] Closed Specialty Services Required 12/24/2019 01/22/2021 24 37 Encounter Details Date Type Department Care Team (Late st Contact Info) Description 01/12/2020 2:00 PM CDT Therapy [facility] Occupational Therapy [address] [place] [address] Nat Loyd, OT [address] [place], [place] [id number] Malignant neoplasm of descending colon (CMS/HCC) (Primary [...] on file 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 I'm finding it difficult to figure out a good system too. My says I take too much on. I would like to have a week at home on my own... I'm going to tell my that I need that time. Falls: no Pain reported: no Rivet Hammer Machine Operator present: No (NA) Objective: Client participated in treatment session #2 x 60 minutes. Today's session included client only. Problems addressed this visit included: Cognitive deficits related to IADL activities. Treatment provided this session: Cognitive intervention Self Management, Coping Strategies, Patient/Caregiver Education and IADL retraining and Education of POC and CO-OP approach, Awareness training, Action planning (HEP) CO-OP Approach Education OT provided education of Cognitive orientation to daily occupational performance or CO-OP approach to therapy intervention that wlll be utilized during OT sessions and will include Gegl-Vmkg-Vu-Checkaction plan use. Ct verbalized understanding. ACTION PLAN / Home activity program: OT provided additional education and guided discussion regarding use of COOP/ Jbji-Czfj-Ed-Check strategy to develop an action plan to achieve a functional goal of client's choice. OT facilitated client's process to identify an activity goal and develop the following action plan. Plan # 1 Cognitive Skill Category: planning, attention/memory Timeframe: One Week Activity GOAL: To complete daily errands thoroughly Action PLAN: Use [place] sticky note to write errand list/stops and place on dashboard as a reference. DO: Ct made a good effort, but had difficulty using specific sticky notes and found it challenging to remember to check the list. The list was made, but client was not completing the list. Ct reportsthat it was very challenging due to mental fatigue and not being in the habit of using a list. Various tasks along with items to get at store, etc. Were put all together on the list. Revised Plan: Ct to use list with category boxes to organize her plan better. Categories include housekeeping, errands, store list, misc. For others, and selected downsizing task of the day. Confidence Level: Client states 7 / 10 confidence in ability to complete plan within timeframe. Assessment: Ct demonstrates progression toward goals as evidenced by Partial completion of Action Plan and participation in process of strategy generation to come up with a plan that she feels will work better and was able to identify challenges. Ct is very engaged in the rehab process. Ct's performance and participation is limited by executive functioning deficit. Ct will benefit from continued skilled OT intervention for education and training to increase independence, safety, participation, and satisfaction in ADL/IADL. Intervention Approach: Health Promotion, Wellness, Adaptation and Prevention Goals: Goals for Occupational Therapy Intervention Goal [...] 2 action plans with >50% success using Xkac-tweq-ww-check cognitive strategy Progressing 01/29/20 STG5 Client will [...] week to address cognitive deficits. Plan to complete WCPA andmemory strategy training activity and Action planning. 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)- Primary Malignant neoplasm of descending colon Executive function deficit documented in this encounter Care Teams Cardiopulmonary Technician And Eeg Tech Relationship Specialty Start Date End Date Ravi Smith MD PCP - General 11/04/17 09/27/21 Aft, Kianna Machado MD PhD [address] [place] [address] Surgeon Surgical Oncology 11/22/17 Santiago Gilbert MD [address] [place] [address] Chemical Educator Gastroenterology 11/22/17 Dmitry Sanderson MD [address] [place], [place] [id number] Referring Physician Colon and Rectal Surgery 12/03/1805/06 Abbi Ventura MD [address] [facility] [facility] [address] [place] [address] Medical Oncologist/Nonprofit Director Medical Oncology 12/03/18 Montse Thompson MD [address] [facility] [address] [place] [address] Consulting Physician Gynecologic Oncology 12/03/18 Lela Hardy MD PhD [address] [facility] [address] [place] [address] Radiation Oncologist Radiation Oncology 12/23/18 Aft, Kianna Machado MD PhD [address] [facility] [address] [place], [place] [id number] Surgeon Surgical Oncology 12/23/18 09/17/21 documented as of this encounter
--- OUTSIDE RECORDS SUMMARY | 2024-04-24 13:41 | XMS_ITS | Encounter Summary ---
Author Organization [facility] Healthcare Address [address] [place] [address] Care Team Providers Care Home Economist Consumer Service Name Role Phone Ravi Smith MD Primary Care Provider [phone] Aft, Kianna Machado MD PhD Unavailable [phone] Santiago Gilbert MD Unavailable [phone] Dmitry Sanderson MD Unavailable [phone] Abbi Ventura MD Unavailable Montse Thompson MD Unavailable [phone] Lela Hardy MD PhD Unavailable [phone] Aft, Kianna Machado MD PhD Unavailable [phone] Reason for Referral * MRI/CAT/PET Scan (Routine) - Closed Specialty Diagnoses / Procedures Referred By [facility] Referred To Contact Radiology Diagnoses 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) Procedures CT chest abdomen pelvis with contrast Abbi Ventura MD [address] [facility] [address] [place] [address] Phone: tel: fax: [facility] Referral ID Status Reason Start Date Expiration Date Visits Re quested Visits Authorized [id number] Closed 12/23/2019 01/21/2021 1 [facility] Reason for Visit * MRI/CAT/PET Scan (Routine) - Closed Specialty Diagnoses / Procedures Referred By Vijaya t Referred To Contact Radiology Diagnoses 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) Procedures CT chest abdomen pelvis with contrast Abbi Ventura MD [address] [facility] [address] [place] [address] Phone: tel: fax: [facility] Referral ID Status Reason Start Date Expiration Date Visits Re quested Visits Authorized [id number] Closed 12/23/2019 01/21/2021 1 1 Encounter Details Date Type Department Care Team (Latest Contact Info) Description 04/19/2020 10:15 AM RADAR ENGINEER - 04/19/2020 10:57 AM RADAR ENGINEER Hospital Encounter [facility] [address] [place] [address] Abbi Ventura MD [address] [facility] [place] [address] Malignant neoplasm of descending colon (CMS/HCC) Discharge [...] on file 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 RADAR ENGINEER Gender Identity Not on file Sexual [...] Schedule Routine, Read Routine (OP Routine) 04/19/2020 10:53 AM RADAR ENGINEER Malignant neoplasm of descending colon (CMS/HCC) POCT CREATININE - DEVICE Routine 04/19/2020 10:47 AM RADAR ENGINEER documented in this encounter Results * CT chest abdomen pelvis with contrast (04/19/2020 10:53 AM RADAR ENGINEER) Anatomical Region Laterality Modality Body N/A Computed Tomogra phy 04/19/2020 11:1 2 AM RADAR ENGINEER Impressions 04/19/2020 11:12 AM RADAR ENGINEER No change when compared to the prior study. Changes of a partial colonic resection but no metastasis or recurrence within the chest, abdomen or pelvis. Electronically signed by: Ovidio Meyers M.D. Narrative 04/19/2020 11:12 AM RADAR ENGINEER EXAMINATION: CT CHEST, ABDOMEN AND PELVIS WITH INTRAVENOUS CONTRAST TECHNIQUE: Standard CT of the chest, abdomen and pelvis was performed after the administration of intravenous contrast. ??Studies were performed after the administration of the following amount of Optiray 350: ??100 mL HISTORY: Colon cancer FINDINGS: Comparison is made to prior study of 05/04/2019. Chest: No supraclavicular, axillary or mediastinal lymphadenopathy is seen. The heart size is within normal limits. There is no pleural or pericardial effusion. The lungs are clear. There is no pulmonary nodule, interstitial lung disease or consolidation. Abdomen/pelvis: The spleen and pancreas are unremarkable. The adrenal glands are normal. The liver is mildly fatty but there is no biliary ductal dilatation. The gallbladder is mildly distended but not thickened. Both kidneys are symmetric without hydronephrosis. A tiny cyst is seen in the right mid kidney. Left kidney is normal. The bowel aorta is normal in caliber. Incidentally noted is a left circumaortic renal vein. Few small mesenteric lymph nodes are seen which are likely reactive. There is no retroperitoneal lymphadenopathy. Patient is status post a hysterectomy. Few diverticula are seen within the colon and patient is status post a partial colectomy. The remainder of the colon is normal in course and caliber without any wall thickening. The small bowel is also normal in course and caliber without any wall thickening. The bone windows do not demonstrate any osseous lesions. Mild degenerative changes are seen within the lower lumbar spine. Procedure Note Ovidio Meyers MD - 04/19/2020 EXAMINATION: CT CHEST, ABDOMEN AND PELVIS WITH INTRAVENOUS CONTRAST TECHNIQUE: Standard CT of the chest, abdomen and pelvis was performed after the administration of intravenous contrast. Studies were performed after the administration of the following amount of Optiray 350: 100 mL HISTORY: Colon cancer FINDINGS: Comparison is made to prior study of 05/04/2019. Chest: No supraclavicular, axillary or mediastinal lymphadenopathy is seen. The heart size is within normal limits. There is no pleural or pericardial effusion. The lungs are clear. There is no pulmonary nodule, interstitial lung disease or consolidation. Abdomen/pelvis: The spleen and pancreas are unremarkable. The adrenal glands are normal. The liver is mildly fatty but there is no biliary ductal dilatation. The gallbladder is mildly distended but not thickened. Both kidneys are symmetric without hydronephrosis. A tiny cyst is seen in the right mid kidney. Left kidney is normal. The bowel aorta is normal in caliber. Incidentally noted is a left circumaortic renal vein. Few small mesenteric lymph nodes are seen which are likely reactive. There is no retroperitoneal lymphadenopathy. Patient is status post a hysterectomy. Few diverticula are seen within the colon and patient is status post a partial colectomy. The remainder of the colon is normal in course and caliber without any wall thickening. The small bowel is also normal in course and caliber without any wall thickening. The bone windows do not demonstrate any osseous lesions. Mild degenerative changes are seen within the lower lumbar spine. IMPRESSION: No change when compared to the prior study. Changes of a partial colonic resection but no metastasis or recurrence within the chest, abdomen or pelvis. Electronically signed by: Ovidio Meyers M.D. 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) Malignant neoplasm of descending colon documented in this encounter Administered Medications Inactive Administered Medications - up to 3 most recent administrations Medication Order MAR Action Action Date Dose Rate Site ioversoL (OPTIRAY 350) syringe syringe 100 mL 100 mL, intravenous, Once in imaging, contrast, Starting on Sat04/19/20 at 1054, For 1 dose Given 04/19/2020 10:57 AM RADAR ENGINEER 100 mL documented in this encounter Orders Medications Ordered That Jefferson ht Not Have Been Administered Count Last Ordered Date First Ordered Date ioversoL (OPTIRAY 350) syrin ge syringe 100 mL 1 04/19/2020 documented in this encounter Care Teams Home Economist Consumer Service Relationship Specialty Start Date End Date Ravi Smith MD PCP - General 11/04/17 09/27/21 Aft, Kianna Machado MD PhD [address] [place] [address] Surgeon Surgical Oncology 11/22/17 Santiago Gilbert MD [address] [place] [address] Special Service Officer Gastroenterology 11/22/17 Dmitry Sanderson MD [address] [place] [address] Referring Physician Colon and Rectal Surgery 12/03/1805/06 Abbi Ventura MD [address] [place] [address] [address] [place] [address] Medical Oncologist/Fishery Division Chief Medical Oncology 12/03/18 Montse Thompson MD [address] [facility] [address] [place] [address] Consulting Physician Gynecologic Oncology 12/03/18 Lela Hardy MD PhD [address] [facility] [place] [address] Radiation Oncologist Radiation Oncology 12/23/18 Aft, Kianna Machado MD PhD [address] [facility] [place] [address] Surgeon Surgical Oncology 12/23/18 09/17/21 documented as of this encounter
--- OUTSIDE RECORDS SUMMARY | 2024-04-24 13:42 | XMS_ITS | Encounter Summary ---
Author Organization [facility] Address [address] [place] [address] Phone Care Team Providers Care Binder Roller Name Role Phone Ravi Smith MD Primary Care Provider [phone] Aft, Kianna Machado MD PhD Unavailable [phone] Santiago Gilbert MD Unavailable [phone] Dmitry Sanderson MD Unavailable [phone] Abbi Ventura MD Unavailable Montse Thompson MD Unavailable [phone] Lela Hardy MD PhD Unavailable [phone] Aft, Kianna Machado MD PhD Unavailable [phone] Encounter Details Date Type Department Care Team (Late st Contact Info) Description 12/21/2019 Telephone [facility] Surgery [address] [facility] 5th [place] [address] [place] [address] Jessica Swanson, [facility] [address] [id number] Social History Tobacco Use Types Packs/Day Years [...] on file 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 Gerber sent a portal message that she had noted discharge from her right breast one time with astain on her bra. She has had no further episodes. I spoke with her to monitor for any further incidents of discharge and to let time know if it becomes more consistent or bloody. documented in this encounter Plan of Treatment Not on file documented as of this encounter Visit Diagnoses Not on filedocumented in this encounter Care Teams Binder Roller Relationship Specialty Start Date End Date Ravi Smith MD PCP - General 11/04/17 09/27/21 Aft, Kianna Machado MD PhD [address] [place] [address] Surgeon Surgical Oncology 11/22/17 Santiago Gilbert MD [address] [place] [address] Financing Analyst Gastroenterology 11/22/17 Dmitry Sanderson MD [address] [place] [address] Referring Physician Colon and Rectal Surgery 12/03/1805/06 Abbi Ventura MD [address] [place] [address] [address] [place] [address] Medical Oncologist/Motorsports Technician Medical Oncology 12/03/18 Montse Thompson MD [address] [place] [address] [address] [place] [address] Consulting Physician Gynecologic Oncology 12/03/18 Lela Hardy MD PhD [address] [place] [address] [address] [place] [address] Radiation Oncologist Radiation Oncology 12/23/18 Aft, Kianna Machado MD PhD [address] [place] [address] [address] [place] [address] Surgeon Surgical Oncology 12/23/18 09/17/21 documented as of this encounter
--- OUTSIDE RECORDS SUMMARY | 2024-04-24 13:42 | XMS_ITS | Encounter Summary ---
Author Organization [facility] Healthcare Address [address] [place] [address] Care Team Providers Care Hand Almond Blancher Name Role Phone Ravi Smith MD Primary Care Provider [phone] Aft, Kianna Machado MD PhD Unavailable [phone] Santiago Gilbert MD Unavailable Dmitry Sanderson MD Unavailable [phone] Abbi Ventura MD Unavailable Montse Thompson MD Unavailable Lela Hardy MD PhD Unavailable [phone] Aft, Kianna Machado MD PhD Unavailable [phone] Encounter Details Date Type Department Care Team (Late st Contact Info) Description 08/17/2019 Telephone [facility] [address] [place] [address] Diana Crisostomo MA Social History Tobacco Use [...] on file Legal 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 No / Unsure 2019 4:56 PM CDT documented as of this encounter Miscellaneous Notes * Telephone Encounter - Diana Crisostomo MA - 08/17/2019 2:06 PM CDT I spoke with pt and she agreed to do a telephone visit for follow-up... I will e-mail pt the consent forms and she will get them signed and sent back to me. documented in this encounter Plan of Treatment Not on file documented as of this encounter Visit Diagnoses Not on filedocumented in this encounter Care Teams Hand Almond Blancher Relationship Specialty Start Date End Date Ravi Smith MD PCP - General 11/04/17 09/27/21 Aft, Kianna Machado MD PhD [address] [place] [address] Surgeon Surgical Oncology 11/22/17 Santiago Gilbert MD [address] [place] [address] Insurance Claims Clerk Gastroenterology 11/22/17 Dmitry Sanderson MD [address] [place] [address] Referring Physician Colon and Rectal Surgery 12/03/1805/06 Abbi Ventura MD [address] [place] [address] [address] [place] [address] Medical Oncologist/Vocational Training Instructor Medical Oncology 12/03/18 Montse Thompson MD [address] [facility] [address] [place], [place] [id number] Consulting Physician Gynecologic Oncology 12/03/18 Lela Hardy MD PhD [address] [place] [address] [address] [place], [place] [id number] Radiation Oncologist Radiation Oncology 12/23/18 Aft, Kianna Machado MD PhD [address] [place] [address] [address] [place], [place] [id number] Surgeon Surgical Oncology 12/23/18 09/17/21 documented as of this encounter
--- OUTSIDE RECORDS SUMMARY | 2024-04-24 13:42 | XMS_ITS | Encounter Summary ---
Author Organization [facility] Address [address] [place] [address] Phone Care Team Providers Care Chief Orthoptist Name Role Phone Ravi Smith MD Primary Care Provider [phone] Aft, Kianna Machado MD PhD Unavailable [phone] Santiago Gilbert MD Unavailable [phone] Dmitry Sanderson MD Unavailable [phone] Abbi Ventura MD Unavailable Montse Thompson MD Unavailable [phone] Lela Hardy MD PhD Unavailable [phone] Aft, Kianna Machado MD PhD Unavailable [phone] Reason for Visit * Reason Onset Date Comments DME order- 07/08/2019 Encounter Details Date Type Department Care Team (Late st Contact Info) Description 07/08/2019 Documentation [facility] Neuro Sleep [address] [facility] 6th [address] [place] [address] Bettina Harper, LYDIA DME order- Social History Tobacco Use Types Packs/Day Years [...] on file 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 DME order and all notes faxed to [facility]. [facility] has confirmed that they are in network with her insurance. Patient has been notified that her order is now with [facility] and they will notify her when they have the authorization. Patient also is aware that we are waiting to hear back form Dr Salas concerning her upcoming appt. Patient verbalized understanding of the information provided. AGE CAR DRIVER documented in this encounter Plan of Treatment Not on file documented as of this encounter Visit Diagnoses Not on filedocumented in this encounter Care Teams Chief Orthoptist Relationship Specialty Start Date End Date Ravi Smith MD PCP - General 11/04/17 09/27/21 Aft, Kianna Machado MD PhD [address] [place] [address] Surgeon Surgical Oncology 11/22/17 Santiago Gilbert MD [address] [place] [address] Manager Safe Gastroenterology 11/22/17 Dmitry Sanderson MD [address] [place] [address] Referring Physician Colon and Rectal Surgery 12/03/1805/06 Abbi Ventura MD [address] [facility] [address] [place], [place] [id number] Medical Oncologist/Document Management Consultant Medical Oncology 12/03/18 Montse Thompson MD [address] [facility] [address] [place] [address] Consulting Physician Gynecologic Oncology 12/03/18 Lela Hardy MD PhD [address] [facility] [address] [place] [address] Radiation Oncologist Radiation Oncology 12/23/18 Aft, Kianna Machado MD PhD [address] [facility] [address] [place], [place] [id number] Surgeon Surgical Oncology 12/23/18 09/17/21 documented as of this encounter
--- OUTSIDE RECORDS SUMMARY | 2024-04-24 13:42 | XMS_ITS | Encounter Summary ---
Author Organization [facility] Address [address] [place] [address] Phone Care Team Providers Care Poll Clerk Name Role Phone Ravi Smith MD Primary Care Provider [phone] Aft, Kianna Machado MD PhD Unavailable [phone] Santiago Gilbert MD Unavailable [phone] Dmitry Sanderson MD Unavailable [phone] Abbi Ventura MD Unavailable Montse Thompson MD Unavailable [phone] Lela Hardy MD PhD Unavailable [phone] Aft, Kianna Machado MD PhD Unavailable [phone] Reason for Referral * (Routine) - Closed Specialty Diagnoses / Procedures Referred By Contac t Referred To Contact Diagnoses VIOLETTE (obstructive sleep apnea) Asthma Procedures Pulmonary Function Test -[facility] Adult PFT Lab- CAM-8D; Spirometry, Oxygen Assessment Titration Cristobal Dong MD [address] [place] [address] Phone: tel: fax: Referral ID Status Reason Start Date Expiration Date Visits Re quested Visits Authorized [id number] Closed 12/01/2019 12/30/2020 1 1 Encounter Details Date Type Department Care Team (Late st Contact Info) Description 12/01/2019 4:00 PM CDT Office Visit [facility] Pulmonary [address] 8th [place] [address] [place] [id number] Cristobal Dong MD [address] [place] [address] VIOLETTE (obstructive sleep apnea) (Primary Dx); Asthma Social History Tobacco Use Types Packs/Day Years [...] on file 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 Gender Identity Not on file Sexual Orientation Not on file documented as of this encounter Last Filed Vital Signs Vital Sign Reading Time Taken Comments Blood Pressure 143/95 12/01/2019 3:50 PM CDT Pulse 84 12/01/2019 3:50 PM CDT Temperature 36.2 ??C (97.1 ??F) 12/01/2019 3:50 PM CD T Respiratory Rate - - Oxygen Saturation 96% 12/01/2019 3:50 PM CDT Inhaled Oxygen Concentration - - Weight 105.2 kg (232 lb) 12/01/2019 3:50 PM CDT Height 175.3 cm (5' 9 ) 12/01/2019 3:50 PM CDT Body Mass Index 34.26 12/01/2019 3:50 PM CDT documented in this encounter Progress Notes * Corwin Chris MD - 12/01/2019 12:00 AM CDT PATIENT NAME: ALEAH GERBER : 1955 FARHAT: 12/01/2019 PROBLEM LIST: 1. Mild persistent asthma. a. Positive methacholine challenge test March 2019. 2. Obstructive sleep apnea on APAP. 3. 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 4. 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 5. Type 2 diabetes. 6. Hypertension. 7. History of suspected transient ischemic attack during chemotherapy. 8. History of deep vein thrombosis and pulmonary embolism, no longer on anticoagulation. INTERVAL HISTORY: Ms. Gerber presents today for follow-up. Since last being seen in February 2019, she reports having done well overall. She says that her breathing feels about stable. She does report some shortness ofbreath with heavy lifting and strenuous activity. She denies a cough. She does not have any fevers,chills, or weight loss. She has not had any lower extremity edema, orthopnea, or chest pain. She has not had any exacerbations of her asthma and has not required prescriptions of steroids since last being seen. She has not gone to the emergency room, primary care physician, or been hospitalized with asthma complications. She continues on Advair 1 puff b.i.d. and albuterol p.r.n., which she rarelyuses. Her only other complaint is that she does note that she has significant diaphoresis with significant activity, which has limited her physical activity going outside. MEDICATIONS: 1. Tylenol p.r.n. 2. Albuterol p.r.n. 3. Xanax. 4. Lipitor. 5. Trulicity. 6. Cymbalta. 7. Advair 1 puff b.i.d. 8. Hydrochlorothiazide. 9. B12. 10. Propranolol. 11. Janumet. REVIEW OF SYSTEMS: All systems reviewed and negative except as mentioned in HPI. PHYSICAL EXAMINATION: Vital Signs: Blood pressure 143/95, pulse 84, temperature 36.2 degrees Celsius, SpO2 96% on room air, weight 105.2 kg. General: Well-appearing female in no obvious distress. HEENT: Extraocular movements are intact. Moist mucous membranes. No rash, conjunctivitis, or pharyngitis. Cardiovascular: Regular rate and rhythm. S1, S2. No murmurs, rubs, or gallops. Lungs: Clear to auscultation bilaterally. Abdomen: Soft, nontender, nondistended. Normal bowel sounds. Extremities: No edema or cyanosis. DATA: 1. Spirometry: FVC is 2.92 L which is 79% predicted. FEV1 is 2.15 L which is 75% predicted. FEV1/FVC ratio 74%. Compared to previous spirometry in February 2019, there has been no change. 2. Six-minute walk test: The patient was able to walk 1855 feet over 6 minutes with a resting heartrate of 90 and a resting oxygen saturation of 100% on room air. SpO2 samina is 97%. Heart rate max was 115. Manny score at conclusion was 2. Blood pressure went from 151/76 to 155/74. ASSESSMENT: Ms. Gerber is a very pleasant 64-year-old female who [facility] for mild persistent asthma and generalized shortness of breath. She presents today with stable spirometry. Her clinical symptoms appear relatively stable and she denies any worsening of her asthma over the last year. Her only complaint is significant diuresis with exertion and some deconditioning. PLAN: 1. Mild intermittent asthma. At this time, we recommend continued therapy with Advair 1 puff b.i.d.and p.r.n. albuterol. She knows to contact us if she has any symptoms of an exacerbation. 2. History of pulmonary emboli. She is no longer on anticoagulation as she is no longer on therapy for cancer. 3. Obstructive sleep apnea. We recommend continued nocturnal CPAP. 4. In regards to her dyspnea on exertion, we did recommend exercise due to likely deconditioning contributing to her dyspnea. 5. Diaphoresis. She has seen Neurology at [facility] without successful identification of her source of sweating. 6. Recommend annual influenza vaccination. We will plan on seeing the patient back in 6 months' time or sooner if needed. ELECTRONICALLY SIGNED - 12/02/2019 10:44 AM Corwin Chris M.D. Fellow I have seen and examined the patient and agree with the findings and plan of care as documented by and/or discussed with Corwin Chris M.D.. ELECTRONICALLY SIGNED - 12/03/2019 04:19 PM Cristobal Dong M.D. back tender cylinder MARTA/francis documented in this encounter Plan of Treatment Not on file documented as of this encounter Results * Pulmonary Function Test - (07/26/2020 12:14 PM CDT) FVC PRE 2.38 L [facility] FVC %PRE PRED 64 % [facility] FEV1 PRE 1.91 L [facility] FEV1 %PRE PRED 66 % [facility] FEV1/FVC PRE 80.4 % [facility] Anatomical Region Laterality Modality PFT 07/26/2020 11:5 2 AM CDT Narrative 08/01/2020 10:55 AM CDT [facility] Division of Pulmonary & Critical Care Medicine [address] [place] [address]; [place] [address]; [place], [place] ??[address]; [phone] Pulmonary Function Laboratory Pulmonary Stress Test Simple/Oxygen Assessment Patient: Aleah Gerber Date: 07/26/2020 Physician: Iker Ht: 69 in ?? Wt: 242 lbs Room: OP Faculty Criminal Justice: Sarah : 1955 Diagnosis: Asthma, VIOLETTE Time(min) [...] with the written final report. PFT performed at:->[facility] Adult PFT Lab- CAM-8D Procedure:->Spirometry Procedure:->Oxygen Assessment Titration Cristobal Dong MD PFT ORDERABLES Final Result documented in this encounter Visit Diagnoses Diagnosis VIOLETTE (obstructive sleep apnea)- Primary Obstructive sleep apnea (adult) (pediatric) Asthma Unspecified asthma VIOLETTE (obstructive sleep apnea) Obstructive sleep apnea (adult) (pediatric) Asthma Unspecified asthma documented in this encounter Care Teams Poll Clerk Relationship Specialty Start Date End Date Ravi Smith MD PCP - General 11/04/17 09/27/21 Aft, Kianna Machado MD PhD [address] [place] [address] Surgeon Surgical Oncology 11/22/17 Santiago Gilbert MD [address] [place] [address] Network Field Engineer Gastroenterology 11/22/17 Dmitry Sanderson MD [address] [place] [address] Referring Physician Colon and Rectal Surgery 12/03/1805/06 Abbi Ventura MD [address] [place] [address] [address] [place] [address] Medical Oncologist/Biometrics Technician Medical Oncology 12/03/18 Montse Thompson MD [address] [place] [address] [address] [place] [address] Consulting Physician Gynecologic Oncology 12/03/18 Lela Hardy MD PhD [address] [place] [address] [address] [place] [address] Radiation Oncologist Radiation Oncology 12/23/18 Aft, Kianna Machado MD PhD [address] [place] [address] [address] [place] [address] Surgeon Surgical Oncology 12/23/18 09/17/21 documented as of this encounter
--- OUTSIDE RECORDS SUMMARY | 2024-04-24 13:42 | XMS_ITS | Encounter Summary ---
Author Organization [facility] Address [address] [place] [address] Phone Care Team Providers Care Respiratory Tech Name Role Phone Hugo Smith MD Primary Care Provider [phone] Aft, Kianna Machado MD PhD Unavailable [phone] Santiago Gilbert MD Unavailable [phone] Dmitry Sanderson MD Unavailable [phone] Abbi Ventura MD Unavailable Montse Thompson MD Unavailable [phone] Lela Hardy MD PhD Unavailable [phone] Aft, Kianna Machado MD PhD Unavailable [phone] Reason for Visit * Reason Comments Sleep Apnea Encounter Details Date Type Department Care Team (Late st Contact Info) Description 11/09/2019 4:00 PM CDT Office Visit [facility] Pulmonary [address] [facility] [facility] 6th [address] [place] [address] Mary Garcia MD [address] [place] [address] VIOLETTE (obstructive sleep apnea) (Primary [...] on file 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 Gender Identity Not on file Sexual Orientation Not on file documented as of this encounter Last Filed Vital Signs Vital Sign Reading Time Taken Comments Blood Pressure 126/75 11/09/2019 3:53 PM CDT Pulse 99 11/09/2019 3:53 PM CDT Temperature 36.6 ??C (97.9 ??F) 11/09/2019 3:53 PM CD T Respiratory Rate - - Oxygen Saturation 95% 11/09/2019 3:53 PM CDT Inhaled Oxygen Concentration - - Weight 105.2 kg (232 lb) 11/09/2019 3:53 PM CDT Height 175.3 cm (5' 9 ) 11/09/2019 3:53 PM CDT Body Mass Index 34.26 11/09/2019 3:53 PM CDT documented in this encounter Progress Notes * Mary Garcia MD - 11/09/2019 12:00 AM CDT PATIENT NAME: ALEAH GERBER : 1955 FARHAT: 11/09/2019 PROBLEM LIST: 1. Obstructive sleep apnea. a. [...] repair. 12. Bladder suspension. 13. Tubal ligation. INTERVAL HISTORY: Since Ms. Gerber was last seen, she underwent a home study which diagnosed mild obstructive sleep apnea. She was initiated on APAP 4 to 20 cm H2O. She reports she has been using that every night other than for one week when the mask broke and she had to wait on a replacement. She is it pretty much using it most of the night. She overall feels better with it and feels like she is less exhausted dur ing the day. She previously was taking naps every day and now takes them about once a week. She is cleaning her mask and hose regularly. She uses distilled water in the humidifier. She denies any drowsiness with driving. She also had issues with psychophysiologic insomnia and delayed sleep phase. She had a video visit with Dr. Salas. She is now going to bed around 1 a.m. She typically falls asleep within 15 minutes, but about once a week it will take up to 2 hours. However, this is happening less often than it used to. She sets a waking time at 10 a.m. for every day. She limits her caffeine to 2 cups of coffee in the morning. Overall, she feels like her sleep quality is much better. MEDICATIONS: 1. Tylenol p.r.n. 2. Albuterol p.r.n. 3. Alprazolam 0.25 mg t.i.d. p.r.n. 4. Atorvastatin 20 mg at bedtime. 5. Dulaglutide 0.75 mg every week. 6. Duloxetine 30 mg a day. 7. Advair 250/50 one puff b.i.d. 8. Hydrochlorothiazide 12.5 mg a day. 9. Vitamin B12 1000 mcg a day. 10. Sitagliptin/metformin 100/1000 mg a day. REVIEW OF SYSTEMS: Her weight is stable. No lower extremity edema. No epistaxis. PHYSICAL EXAM: Vital Signs: Afebrile, blood pressure 126/75, pulse 99, O2 saturation 95%, height 5 feet 9 inches, weight 232 pounds for a BMI of 34.2. General: Pleasant woman in no acute distress. HEENT: Sclerae anicteric. Conjunctivae pink. Mallampati class 3 airway. Mild macroglossia. No oropharyngeal lesions. Lungs: Clear to auscultation bilaterally. Cardiovascular: S1, S2. No murmurs, rubs, or gallops. Abdomen: Benign. Extremities: No clubbing, cyanosis, or edema. DATA: 1. Wyatt Sleepiness Scale is 5/24. 2. Compliance download shows average daily use of 6 hours and 31 minutes on days used. Used greaterthan 4 hours 70% of the time. Average AHI is 0.3. Median leak 0.5 L/minute with ninety-fifth percentile leak at 13.7 L/minute. IMPRESSION: Ms. Gerber is a 64-year-old woman with a history of mild obstructive sleep apnea and psychophysiologic insomnia. Overall, she is doing better from both components. RECOMMENDATIONS: 1. She should continue with her APAP use. 2. She should continue cleaning everything regularly. 3. We will plan to see her back in 1 year, but she was encouraged to call sooner should she have any issues. ELECTRONICALLY SIGNED - 11/11/2019 01:26 PM Mary Garcia M.D. child guidance counselor TR/an cc: HUGO SMITH MD [address] [place] [address] / FELICITY VINCENT MD [address] [facility] [address] [place] [address] documented in this encounter Plan of Treatment Not on file documented as of this encounter Visit Diagnoses Diagnosis VIOLETTE (obstructive sleep apnea)- Primary Obstructive sleep apnea (adult) (pediatric) documented in this encounter Historical Medications * This list may reflect changes made after this encounter. propranolol LA (INDERAL LA) 60 mg 24 hr capsuleIndication s:Essential Tremor Take 1 capsule (60 mg total) by mouth 2 (two) times a day 10/26/2019 added in this encounter Care Teams Respiratory Tech Relationship Specialty Start Date End Date Hugo Smith MD PCP - General 11/04/17 09/27/21 Aft, Kianna Machado MD PhD [address] [place] [address] Surgeon Surgical Oncology 11/22/17 Santiago Gilbert MD [address] [place] [address] Security Risk Analyst Gastroenterology 11/22/17 Dmitry Sanderson MD [address] [place] [address] Referring Physician Colon and Rectal Surgery 12/03/1805/06 Abbi Ventura MD [address] [place] [address] [address] [place] [address] Medical Oncologist/Clinical Product Manager Medical Oncology 12/03/18 Montse Thompson MD [address] [place] [address] [address] [place] [address] Consulting Physician Gynecologic Oncology 12/03/18 Lela Hardy MD PhD [address] [place] [address] [address] [place] [address] Radiation Oncologist Radiation Oncology 12/23/18 Aft, Kianna Machado MD PhD [address] [place] [address] [address] [place] [address] Surgeon Surgical Oncology 12/23/18 09/17/21 documented as of this encounter
--- OUTSIDE RECORDS SUMMARY | 2024-04-24 13:42 | XMS_ITS | Encounter Summary ---
Author Organization [facility] Address [address] [place] [address] Care Team Providers Care All Source Analyst Name Role Phone Ravi Smith MD Primary Care Provider [phone] Aft, Kianna Machado MD PhD Unavailable [phone] Santiago Gilbert MD Unavailable [phone] Dmitry Sanderson MD Unavailable [phone] Abbi Ventura MD Unavailable Montse Thompson MD Unavailable [phone] Lela Hardy MD PhD Unavailable [phone] Aft, Kianna Machado MD PhD Unavailable [phone] Encounter Details Date Type Department Care Team (Late st Contact Info) Description 08/17/2019 11:05 AM CDT Ancillary Procedure [facility] Outside Films Social History Tobacco Use Types Packs/Day Years [...] file 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 No / Unsure 2019 4:56 PM CDT documented as of this encounter Plan of Treatment Not on file documented as of this encounter Procedures Procedure Name Priority Date/Time Associated Diagnosis Comments US TRANSFER OF OUTSIDE FILMS Routine 08/17/2019 11:01 AM CDT documented in this encounter Results * US Outside Reference (08/17/2019 11:01 AM CDT) Narrative [facility] - 08/17/2019 11:01 AM CDT This order has been auto-finalized and does not contain a result. us Not In File Miscellaneous IMG US PROCEDURES Bethanie lupillo Result [facility] documented in this encounter Visit Diagnoses Not on filedocumented in this encounter Care Teams All Source Analyst Relationship Specialty Start Date End Date Ravi Smith MD PCP - General 11/04/17 09/27/21 Aft, Kianna Machado MD PhD [address] [place] [address] Surgeon Surgical Oncology 11/22/17 Santiago Gilbert MD [address] [place] [address] Boxing Trainer Gastroenterology 11/22/17 Dmitry Sanderson MD [address] [place] [address] Referring Physician Colon and Rectal Surgery 12/03/1805/06 Abbi Ventura MD [address] [place] [address] [address] [place] [address] Medical Oncologist/Unit Secretary Medical Oncology 12/03/18 Montse Thompson MD [address] [place] [address] [address] [place] [address] Consulting Physician Gynecologic Oncology 12/03/18 Lela Hardy MD PhD [address] [place] [address] [address] [place] [address] Radiation Oncologist Radiation Oncology 12/23/18 Aft, Kianna Machado MD PhD [address] [place] [address] [address] [place] [address] Surgeon Surgical Oncology 12/23/18 09/17/21 documented as of this encounter
--- OUTSIDE RECORDS SUMMARY | 2024-04-24 13:42 | XMS_ITS | Encounter Summary ---
Author Organization [facility] Address [address] [place] [address] Phone Care Team Providers Care Optical Lens Manufacturing Tech Name Role Phone Ravi Smith MD Primary Care Provider [phone] Aft, Kianna Machado MD PhD Unavailable [phone] Santiago Gilbert MD Unavailable [phone] Dmitry Sanderson MD Unavailable [phone] Abbi Ventura MD Unavailable Montse Thompson MD Unavailable [phone] Lela Hardy MD PhD Unavailable [phone] Aft, Kianna Machado MD PhD Unavailable [phone] Encounter Details Date Type Department Care Team (Late st Contact Info) Description 12/15/2019 Telephone [facility] Oncology [address] [place] [phone] Halle Shaw, RN Social History Tobacco Use Types Packs/Day [...] on file 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 Pt educated on current visitor policy and safety measures in place and states understanding. MB documented in this encounter Plan of Treatment Not on file documented as of this encounter Visit Diagnoses Not on filedocumented in this encounter Care Teams Optical Lens Manufacturing Tech Relationship Specialty Start Date End Date Ravi Smith MD PCP - General 11/04/17 09/27/21 Aft, Kianna Machado MD PhD [address] [place] [address] Surgeon Surgical Oncology 11/22/17 Santiago Gilbert MD [address] [place] [address] Scouring Machine Operator Gastroenterology 11/22/17 Dmitry Sanderson MD [address] [place] [address] Referring Physician Colon and Rectal Surgery 12/03/1805/06 Abbi Ventura MD [address] [facility] [address] [place] [address] Medical Oncologist/Associate Financial Planner Medical Oncology 12/03/18 Montse Thompson MD [address] [place] [address] [address] [place] [address] Consulting Physician Gynecologic Oncology 12/03/18 Lela Hardy MD PhD [address] [place] [address] [address] [place] [address] Radiation Oncologist Radiation Oncology 12/23/18 Aft, Kianna Machado MD PhD [address] [place] [address] [address] [place] [address] Surgeon Surgical Oncology 12/23/18 09/17/21 documented as of this encounter
--- OUTSIDE RECORDS SUMMARY | 2024-04-24 13:42 | XMS_ITS | Encounter Summary ---
Author Organization [facility] Care Team Providers Care Spreader Operator Name Role Phone Ravi Smith MD Primary Care Provider [phone] Aft, Kianna Machado MD PhD Unavailable [phone] Santiago Gilbert MD Unavailable [phone] Dmitry Sanderson MD Unavailable [phone] Abbi Ventura MD Unavailable Montse Thompson MD Unavailable Lela Hardy MD PhD Unavailable [phone] Aft, Kianna Machado MD PhD Unavailable [phone] Encounter Details Date Type Department Care Team (Latest Contact Info) Description 2019 Travel Social History Tobacco Use Types Packs/Day Years [...] on file 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 Gender Identity Not on file Sexual [...] on filedocumented in this encounter Care Teams Spreader Operator Relationship Specialty Start Date End Date Ravi Smith MD PCP - General 11/04/17 09/27/21 AftKianna MD PhD [address] [place] [address] Surgeon Surgical Oncology 11/22/17 Santiago Gilbert MD [address] [place] [address] Central Service Technician Gastroenterology 11/22/17 Dmitry Sanderson MD [address] [place] [address] Referring Physician Colon and Rectal Surgery 12/03/1805/06 Abbi Ventura MD [address] [place] [address] [address] [place] [address] Medical Oncologist/Curriculum Coach Medical Oncology 12/03/18 Montse Thompson MD [address] [place] [address] [address] [place] [address] Consulting Physician Gynecologic Oncology 12/03/18 Lela Hardy MD PhD [address] [place] [address] [address] [place] [address] Radiation Oncologist Radiation Oncology 12/23/18 Kianna Bunch MD PhD [facility] [address] [place] [address] Surgeon Surgical Oncology 12/23/18 09/17/21 documented as of this encounter
--- OUTSIDE RECORDS SUMMARY | 2024-04-24 13:42 | XMS_ITS | Encounter Summary ---
Author Organization [facility], [facility] [email or web address] [facility] Address [address] [place] [address] Phone Care Team Providers Care Pilot Plant Research Technician Name Role Phone Ravi Smith MD Primary Care Provider [phone] Aft, Kianna Machado MD PhD Unavailable [phone] Santiago Gilbert MD Unavailable [phone] Dmitry Sanderson MD Unavailable [phone] Abbi Ventura MD Unavailable Montse Thompson MD Unavailable [phone] Lela Hardy MD PhD Unavailable [phone] Aft, Kianna Machado MD PhD Unavailable [phone] Encounter Details Date Type Department Care Team (Late st Contact Info) Description 12/25/2019 Orders Only [facility] Oncology [address] [place] [address] Fatemeh Zarate, RN Social History Tobacco Use Types Packs/Day [...] on file 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 Gender Identity Not on file Sexual Orientation Not on file documented as of this encounter Ordered Prescriptions Prescription Sig Dispense Quantity Refills Last Filled Start Date End Date LORazepam (ATIVAN) 0.5 mg tablet Take 1 tablet (0.5 mg total) by mouth as directed 1 by mouth 30 minutes prior to MRI 2 tablet 12/25/2019 0 documented in this encounter Plan of Treatment Not on file documented as of this encounter Visit Diagnoses Not on filedocumented in this encounter Care Teams Pilot Plant Research Technician Relationship Specialty Start Date End Date Ravi Smith MD PCP - General 11/04/17 09/27/21 Aft, Kianna Machado MD PhD [address] [place] [address] Surgeon Surgical Oncology 11/22/17 Santiago Gilbert MD [address] [place] [address] Motel Maid Gastroenterology 11/22/17 Dmitry Sanderson MD [address] [place] [address] Referring Physician Colon and Rectal Surgery 12/03/1805/06 Abbi Ventura MD [address] [place] [address] Medical Oncologist/Volcanology Professor Medical Oncology 12/03/18 Montse Thompson MD [address] [place] [address] Consulting Physician Gynecologic Oncology 12/03/18 Lela Hardy MD PhD [address] [place] [address] Radiation Oncologist Radiation Oncology 12/23/18 Aft, Kianna Machado MD PhD [address] [place] [address] Surgeon Surgical Oncology 12/23/18 09/17/21 documented as of this encounter
--- OUTSIDE RECORDS SUMMARY | 2024-04-24 13:42 | XMS_ITS | Encounter Summary ---
Author Organization [facility] [employer] [facility] Address [address] [place] [address] Phone Care Team Providers Care Folder Operator Name Role Phone Ravi Smith MD Primary Care Provider [phone] Aft, Kianna Machado MD PhD Unavailable [phone] Santiago Gilbert MD Unavailable [phone] Dmitry Sanderson MD Unavailable [phone] Abbi Ventura MD Unavailable Montse Thompson MD Unavailable [phone] Lela Hardy MD PhD Unavailable [phone] Aft, Kianna Machado MD PhD Unavailable [phone] Encounter Details Date Type Department Care Team (Late st Contact Info) Description 08/12/2019 Telephone [facility] Pulmonary [address] [facility] 8th [place] [address] [place] [id number] Josafat Hinojosa CPhT Social History Tobacco Use Types Packs/Day Years [...] on file 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 No / Unsure 2019 4:56 PM CDT documented as of this encounter Miscellaneous Notes * Telephone Encounter - Josafat Hinojosa CPhT - 08/12/2019 1:59 PM CDT ----- Message from Adelina Morton RN sent at 08/12/2019 11:21 AM CDT ----- Please reschedule pt's. appt. on 08/18/[address] Dong. Reschedule to 04/12/20 at 4:00pm with marcial. Thanks, Jovita documented in this encounter Plan of Treatment Not on file documented as of this encounter Visit Diagnoses Not on filedocumented in this encounter Care Teams Folder Operator Relationship Specialty Start Date End Date Ravi Smith MD PCP - General 11/04/17 09/27/21 Aft, Kianna Machado MD PhD [address] [place] [address] Surgeon Surgical Oncology 11/22/17 Santiago Gilbert MD [address] [place] [address] Tire Builder Heavy Service Gastroenterology 11/22/17 Dmitry Sanderson MD [address] [place] [address] Referring Physician Colon and Rectal Surgery 12/03/1805/06 Abbi Ventura MD [address] [place], [place] [id number] Medical Oncologist/Research Methodologist Medical Oncology 12/03/18 Montse Thompson MD [address] [place], [place] [id number] Consulting Physician Gynecologic Oncology 12/03/18 Lela Hardy MD PhD [address] [place] [address] [address] [place] [address] Radiation Oncologist Radiation Oncology 12/23/18 Aft, Kianna Machado MD PhD [address] [place], [place] [id number] Surgeon Surgical Oncology 12/23/18 09/17/21 documented as of this encounter
--- OUTSIDE RECORDS SUMMARY | 2024-04-24 13:42 | XMS_ITS | Encounter Summary ---
Author Organization [facility] Address [address] [place] [address] Phone Care Team Providers Care Tripe Scraper Name Role Phone Ravi Smith MD Primary Care Provider [phone] Aft, Kianna Machado MD PhD Unavailable Santiago Gilbert MD Unavailable [phone] Dmitry Sanderson MD Unavailable [phone] Abbi Ventura MD Unavailable Montse Thompson MD Unavailable Lela Hardy MD PhD Unavailable Aft, Kianna Machado MD PhD Unavailable Encounter Details Date Type Department Care Team (Late st Contact Info) Description 09/10/2019 2:00 PM CDT Telemedicine [facility] [address] [facility] 6th Floor [address] [place] [address] Kassie Salas, PhD [address] [place] [address] Insomnia, unspecified type (Primary Dx) Social History Tobacco Use Types [...] on file 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 Your wake up time is the anchor for your sleep schedule. Pick a wake up time that works for you.Set an alarm for that time. Get up at that time REGARDLESS of how your night goes. Patient chose 10am wake up time and wanted to allow for 9 hours of sleep, so that means 1am bedtime. If you have a bad night, you still get up at your designated time. That means you will be tired during the day, but than that night, you should sleep better because you are tired. It is ok to take a nap during the day as long as you complete that nap before 4pm and limit the nap to 60 minutes. Set a timer so you don't oversleep. Use your APAP for the nap or sleep in a recliner so your head is elevated. 2. Make sure you are sleepy when you go to bed at night. If you get up at the same time every day, you will get sleepy at the same time every night (usually 16 hours after you get up for the day). Have a regular calm down time before you go to bed. Most people read or watch TV. Make sure you do this in minimal light as too much light can be a stimulant. Do not spend time on the computer before bed. Patient chose to read fiction as her calm down time 3. No caffeine 6 hours before your bedtime 4. Schedule a time during the day for 20 or 30 minutes where you write out everything that is bothering you. It does not have to be real or practical. Just write out all the thoughts that are most likely to run through your head when you get into bed. It helps to become aware of the thoughts that are in your head so you can choose to agree with them or not. 5. Negative or worrisome thoughts are trying to help you survive. But they are not necessarily accurate. Writing them down helps you come up with a solution or helps you decide what you can and can not control. Ask yourself How does this thought help me? 6. Worry is about the future. We can't control the future. We can only deal with right now. Get outside in the sunlight for a little while every day. Getting outside helps to bring you back to the here and now. Morning sunlight also improves ability to fall asleep and improves mood. 7. Negative thoughts in bed cause arousal which makes sleeping impossible. Move your negative thoughts to your constructive worry time earlier in the day. Then when you get into bed at night, have a plan. Grateful thoughts are more likely to promote sleep. Use GLAD: Grateful, Eleanor, Achieved, [place]. Or use a relaxation strategy. Use CBTi Mysql Developer sandra and then use Tools and Quiet your Mind for other options to practice. Follow up in late November or December via Zoom documented in this encounter Progress Notes * Kassie Salas, PhD - 09/10/2019 2:00 PM CDT Patient Name: ALEAH GERBER Medical Record Number (MRN): [id number] Date of (): 1955 Encounter Date: 09/10/2019 This was a telemedicine visit with Ms. Gerber which took place via Zoom. During the visit, I was located in my home office in [place] and the patient was located in her home in [place]. The sessionstarted at 2 pm and ended at 3 pm. In addition to the time spent during the session with the patient, I spent 30 minutes on the day of the visit typing the note into [employer]. Total time spend on encounter on the day of the visit: 90 minutes. The patient has been informed that the visit may not be secure and acknowledged the information. It was explained to the patient they have the option of participating in a video visit during the COVID-19 public health emergency. After being given an opportunity to ask questions about and discussthis type of visit, the patient verbally consented to proceeding with the video visit. The patient understands that this service replaces an office visit and they may be billed and/or responsible forany applicable copayments. Chief Complaint Aleah Gerber is a 64 y.o. female seen today through the [facility] for behavioral treatment of insomnia. HPI: Ms. Gerber first saw Dr. Mary Garcia on 2018, for difficulty sleeping and daytime sleepiness and fatigue. She had a home sleep study on May 29, 2019, which showed mild VIOLETTE. She was started on APAP but because of insurance complications, she did not receive her machine until July. Atthis point she has been on her APAP about 6 weeks. DISCUSSED: Ms. Gerber thinks her PAP is helping her. Although she still has difficulty falling asleep, she does report that she is waking up less during the night and she is less tired during the day. She use to take 4 hour naps during the day and now she does not nap every day although she still naps 2 hourson some days. She continues to report difficulty falling asleep. She aims for a bedtime of midnightbut last night did not fall asleep until 2:30 am. She also aims for a wake up time of 9-10 am. She states that she has always been a night owl for as long as she can remember and frequently has a burst of energy late at night. She does not have a calm down time before bed. She ordered a new bed theday before everything closed for COVAL so presently she has no bed and is sleeping either on the couch or the recliner. She does not think her sleep has been impacted by not having a bed. Ms. Gerber denies drinking alcohol but does drink 2-3 cups of coffee in the morning. She may start a diet Pepsi in the morning but seldom finishes it until her evening meal. She recently had her Zoloft increased from 50 mg to 100 mg because she was feeling irritable and started Cymbalta 30 mg forfibromyalgia. She does not exercise because it makes her sweat excessively although she would like to do water exercise if only a pool was open. She does not get exposure to sunlight and prefers to keep her house dark. When Ms. Gerber gets into bed at night, her head takes off with a variety of thoughts. She is neversure what she will be thinking about. She might be thinking about her health issues (colon cancer, breast cancer, fibromyalgia) or she might just have a song stuck in her head that she can not get rid of. Often times when she goes to bed, she does not feel sleepy (likely because she has not been awake enough hours to feel sleepy). PLAN: 1. Set a wake up time and stick with it. Decide on a time that works for getting up every day. Set an alarm. Make this time the anchor for your sleep schedule and determine your bedtime based on whenyou want to get up. Ms. Gerber chose 10 am as her wake up time. She was not sure how many hours of sleep she needs every night since she said she has spent much of life feeling sleep deprived. But she wanted to aim for 9 hours of sleep to see how that would feel. That means 1am needs to be her bedtime and she should not get in bed before then or she will just be frustrated about being awake in bed. 2. Schedule a time during the day to write out all the things that worry/concern you and are likelyto pop up in your head when you get into bed at night. Get these thoughts down on paper. If they have solutions, write out the solutions as well. Then when you think about them in bed at night, remind yourself that you worked on these things earlier in the day, will work on them again tomorrow, but now is the time for sleep. Ms. Gerber had done a similar [facility] and found [facility] helpful. 3. Worrisome thoughts in bed cause arousal and are not conducive to sleep. Replace these thoughts with thoughts that are more calming. Use this time in bed to review what you are grateful for. Use GLAD: Grateful for, Eleanor today, Achieved today, brought [place] today. Or Ms. Gerber said that she also used self hypnosis to help her fall asleep which when described sounded similar to progressive muscle relaxation. If she can not eliminate the thoughts (such as a song running through her head), then become an observer of the thoughts and watch them pass by like she is watching a parade of words july. Do not engage with the thoughts. 4. She was given the CBTi Mysql Developer sandra which is free. Then go to Tools then to Quiet your mind fora list of ways to help you calm down before going to bed or when ever you feel anxious during the day. 5. Schedule a nap to be completed before 4pm and set a timer for 60 minutes. Longer naps and later naps will make it more difficult to fall asleep at 1am. 6. Avoid caffeine 6 hours before going to bed. Have a calm down time before bed. Ms. Gerber said she would like to read fiction as a way to calm down and not get energized with new projects late at night. 7. Sunlight in the morning will help with sleep onset as well as improve mood. Either get outside with no sunglasses or sit in front of a suzy window. Follow up was scheduled for late November or in December. Ms. Gerber preferred to meet by Zoom again. LEVEL OF SERVICE: CPT Code: 87635 60 Minutes Time started: 2 pm Time stopped: 3 pm Diagnosis: G47.00 Insomnia Unspecified documented in this encounter Plan of Treatment Not on file documented as of this encounter Visit Diagnoses Diagnosis Insomnia, unspecified type- Primary documented in this encounter Care Teams Tripe Scraper Relationship Specialty Start Date End Date Ravi Smith MD PCP - General 11/04/17 09/27/21 Aft, Kianna Machado MD PhD [address] [place] [address] Surgeon Surgical Oncology 11/22/17 Santiago Gilbert MD [address] [place] [address] Management Trainer Gastroenterology 11/22/17 Dmitry Sanderson MD [address] [place] [address] Referring Physician Colon and Rectal Surgery 12/03/1805/06 Abbi Ventura MD [address] [place] [address] Medical Oncologist/News Gathering Technician Medical Oncology 12/03/18 Montse Thompson MD [address] [place] [address] Consulting Physician Gynecologic Oncology 12/03/18 Lela Hardy MD PhD [address] [place] [address] [address] [place] [address] Radiation Oncologist Radiation Oncology 12/23/18 Aft, Kianna Machado MD PhD [address] [place] [address] [address] [place] [address] Surgeon Surgical Oncology 12/23/18 09/17/21 documented as of this encounter
--- OUTSIDE RECORDS SUMMARY | 2024-04-24 13:42 | XMS_ITS | Encounter Summary ---
Author Organization [facility] Address [address] [place] [address] Phone Care Team Providers Care Sidehand Name Role Phone Ravi Smith MD Primary Care Provider [phone] Aft, Kianna Machado MD PhD Unavailable [phone] Santiago Gilbert MD Unavailable [phone] Dmitry Sanderson MD Unavailable [phone] Abbi Ventura MD Unavailable Montse Thompson MD Unavailable [phone] Lela Hardy MD PhD Unavailable [phone] Aft, Kianna Machado MD PhD Unavailable [phone] Reason for Referral * Pulmonology (Routine) - Closed Specialty Diagnoses / Procedures Referred By Contac t Referred To Contact Pulmonary Disease Diagnoses Chronic obstructive pulmonary disease, unspecified COPD type (HCC) Procedures Pulmonary Function Test -[facility] Adult PFT Lab- CAM-8D; Spirometry, Oxygen Assessment Titration Cristobal Dong MD [address] [facility] [address] [place] [address] Phone: tel: fax: Referral ID Status Reason Start Date Expiration Date Visits Re quested Visits Authorized [id number] Closed 08/12/2019 02/20/2021 6 6 Encounter Details Date Type Department Care Team (Late st Contact Info) Description 08/12/2019 Orders Only [facility] Pulmonary [address] [facility] 8th [place] [address] [place] [address] Cristobal Dong MD [address] [place], [place] [id number] Chronic obstructive pulmonary disease, unspecified COPD type (CMS/HCC) (Primary Dx) Social History Tobacco Use [...] on file 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 Gender Identity Not on file Sexual [...] encounter Results * Pulmonary Function Test - (12/01/2019 3:36 PM CDT) FVC PRED 3.67 0.05 - 9.99 Liters [facility] FVC PRE 2.92 0 - 12 Liters [facility] FVC %PRE PRED 79 0 - 300 % [facility] FEV1 PRED 2.85 0.05 - 9.99 Liters [facility] FEV1 PRE 2.15 0 - 12 Liters [facility] FEV1 %PRE PRED 75 0 - 300 % [facility] FEV1/FVC PRED 78 1 - 99 % [facility] FEV1/FVC PRE 74 0 - 12 % [facility] PEU96-91% PRED 2.43 0 - 12 L/sec [facility] GLY72-13% PRE 1.60 0 - 12 L/sec [facility] ESV56-36% %PRE PRED 66 0 - 300 % [facility] FEF75% PRED 0.70 0 - 300 L/sec [facility] FEF75% PRE 0.47 0 - 12 L/sec [facility] FEF75% %PRE PRED 66 % [facility] PEF PRED 6.30 0 - 18 L/sec [facility] PEF PRE 6.58 0 - 18 L/sec [facility] PEF %PRE PRED 105 0 - 300 % [facility] PIF PRE 5.12 0 - 18 L/sec [facility] FEV6 PRE 2.80 0 - 12 Liters [facility] FEV1/FEV6 PRE 77 0 - 12 % [facility] VC PRED 3.53 0.05 - 9.99 Liters [facility] TLC PRED 5.79 0.05 - 11.99 Liters [facility] RV PRED 2.27 0.05 - 9.99 Liters [facility] RV/TLC PRED 40 0 - 300 % [facility] FRC N2 PRED 2.81 0.05 - 9.99 Liters [facility] FRC PL PRED 3.31 0.05 - 9.99 Liters [facility] ERV PRED 1.21 0.05 - 9.99 Liters [facility] DLCO PRED 27.5 0.05 - 99.99 mL/mmHg/min [facility] DL ADJ PRED 27.5 1 - 2 mL/mmHg/min [facility] DLCO/VA PRED 5.03 mL/mHg/min/ L [facility] DL/VA ADJ PRED 3.86 mL/mHg/min/ L [facility] RAW PRED 1.13 cmH2O/L/sec [facility] GAW PRED 0.794 L/sec/cmH2O [facility] SRAW PRED 3.76 cmH2O/L/s/L [facility] SGAW PRED 0.262 L/s/cmH2O/L [facility] Anatomical Region Laterality Modality PFT 12/01/2019 3:18 PM CDT Narrative 12/04/2019 4:15 PM CDT [facility] Division of Pulmonary & Critical Care Medicine [address] [place] [address]; [address]; [place], [place] [address]; [phone] Pulmonary Function Laboratory Pulmonary Stress Test Simple/Oxygen Assessment Patient: Aleah Gerber Date: 12/01/2019 Physician: Iker Ht: 69 in ?? Wt: 232 lbs Room: OP Director Talent Acquisition: Jameson : 1955 Diagnosis: COPD Time(min) Distance (ft)/ Peters O2 L/M SpO2 HR Manny* BP FEV1/ ?% Pred Rest: ?RA 100 90 0 151/76 2.15/75 ? Walk/Bike: ? 1 ??RA 98 106 0 ?? 2 ??RA 97 114 1 ?? 3 ??RA 97 115 2 ?? 4 ??RA 99 114 2 ?? 5 ??RA 98 114 2 ?? 6 min 0 sec ??1855 RA 99 114 2 ?? Recovery: ? 1 ??RA 100 108 3 ??2.21/78 2 ??RA 100 96 2 155/74 ? *Manny rate of perceived exertion (1-10 dyspnea scale) ?? Austin, CHEST 2003; 123:1408 Walk Test Summary: Six Minute Walk Distance: 1,855 ft Six minute Walk Work [distance (m) x body wt (kg)]: 59,389 kg.m (normal >60,000 kg.m) Oxygen required to maintain SpO2 greater than 90% during six minutes of walking: ??L/M Comments: Zero stops, ATS script Interpretation: Breathing room air, SpO2 is normal at rest and during exercise sufficient to increase pulse from 90 to 115 b/min, SpO2 falls but remains normoxemic. On this basis, [...] and agrees with the written final report. us Cristobal Dong MD PFT ORDERABLES Final Result documented in this encounter Visit Diagnoses Diagnosis Chronic obstructive pulmonary disease, unspecified COPD type (HCC)- Primary Chronic obstructive pulmonary disease, unspecified COPD type (HCC) documented in this encounter Care Teams Sidehand Relationship Specialty Start Date End Date Ravi Smith MD PCP - General 11/04/17 09/27/21 Kianna Bunch MD PhD [address] [place] [address] Surgeon Surgical Oncology 11/22/17 Santiago Gilbert MD [address] [place] [address] Ms Access Database Developer Gastroenterology 11/22/17 Dmitry Sanderson MD [address] [place] [address] Referring Physician Colon and Rectal Surgery 12/03/1805/06 Abbi Ventura MD [address] [place] [address] [address] [place] [address] Medical Oncologist/Fur Cutting Machine Operator Medical Oncology 12/03/18 Montse Thompson MD [address] [place] [address] Consulting Physician Gynecologic Oncology 12/03/18 Lela Hardy MD PhD [address] [place] [address] Radiation Oncologist Radiation Oncology 12/23/18 Kianna Bunch MD PhD [address] [place] [address] Surgeon Surgical Oncology 12/23/18 09/17/21 documented as of this encounter
--- OUTSIDE RECORDS SUMMARY | 2024-04-24 13:42 | XMS_ITS | Encounter Summary ---
Author Organization [facility] Healthcare Address [address] [place] [address] Care Team Providers Care Spaghetti Machine Operator Name Role Phone Ravi Smith MD Primary Care Provider [phone] Aft, Kianna Machado MD PhD Unavailable [phone] Santiago Gilbert MD Unavailable [phone] Dmitry Sanderson MD Unavailable [phone] Abbi Ventura MD Unavailable Montse Thompson MD Unavailable [phone] Lela Hardy MD PhD Unavailable [phone] Aft, Kianna Machado MD PhD Unavailable [phone] Trena Obando MD Unavailable [phone] Dat Benito DO Primary Care Provider [phone] Encounter Details Date Type Department Care Team (Late st Contact Info) Description 08/17/2019 Telephone [facility] Radiation Oncology at [facility] [address] [place] [address] Diana Crisostomo MA Social History Tobacco Use [...] on file 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 Gender Identity Not on file Sexual Orientation [...] COVID: Suspected 05/02/2023 05/02/2023 05/02/2023 3:37 PM FRAME CATCHER documented as of this encounter Care Teams Spaghetti Machine Operator Relationship Specialty Start Date End Date Ravi Smith MD PCP - General 11/04/17 09/27/21 Dat Benito DO [address] [place] [address] PCP - General Internal Medicine 09/28/21 Aft, Kianna Machado MD PhD [address] [place] [address] Surgeon Surgical Oncology 11/22/17 Santiago Gilbert MD [address] [place] [address] Commercial Producer Gastroenterology 11/22/17 Dmitry Sanderson MD [address] [place] [address] Referring Physician Colon and Rectal Surgery 12/03/1805/06 Abbi Ventura MD [address] [facility] [address] [place] [address] Medical Oncologist/Crude Oil Treater Medical Oncology 12/03/18 Montse Thompson MD [address] [facility] [address] [place] [address] Consulting Physician Gynecologic Oncology 12/03/18 Lela Hardy MD PhD [address] [place] [address] [address] [place] [address] Radiation Oncologist Radiation Oncology 12/23/18 Aftatiana, Kianna Machado MD PhD [address] [facility] [address] [place] [address] Surgeon Surgical Oncology 12/23/18 09/17/21 Trena Obando MD [address] [place], [place] [address] Consulting Physician Neurology 09/18/21 documented as of this encounter
--- OUTSIDE RECORDS SUMMARY | 2024-04-24 13:42 | XMS_ITS | Encounter Summary ---
Author Organization [facility] Address [address] [place] [address] Phone Care Team Providers Care Preforming Machine Operator Name Role Phone Ravi Smith MD Primary Care Provider [phone] Aft, Kianna Machado MD PhD Unavailable [phone] Santiago Gilbert MD Unavailable [phone] Dmitry Sanderson MD Unavailable [phone] Abbi Ventura MD Unavailable Montse Thompson MD Unavailable Lela Hardy MD PhD Unavailable Aft, Kianna Machado MD PhD Unavailable [phone] Encounter Details Date Type Department Care Team (Late st Contact Info) Description 12/30/2019 Orders Only [facility] Oncology [address] [place] [address] Abbi Ventura MD [address] [facility] [address] [place] [address] Malignant neoplasm of descending colon (CMS/HCC) (Primary [...] on file Legal Sex Female 1:06 AM PIECE HAND Gender Identity Not on file Sexual Orientation Not on file documented as of this encounter Miscellaneous Notes * Result Encounter Note - Abbi Ventura MD - 01/07/2020 2:33 PM CDT Continue to drink more fluids * Result Encounter Note - Fatemeh Zarate RN - 01/07/2020 9:[address] Ventura, Pt was seen in the office 2 weeks ago. Creatinine level was 1.46. She was asked to increase fluid consumption and rechecked. It was 1.52 at that time and she admits she did not increase her fluid intake. Rechecked 01/06/20 and creatinine level was 1.16 after increasing fluid intake. Do you have any further recommendations? DB documented in this encounter Plan of Treatment Not on file documented as of this encounter Procedures Procedure Name Priority Date/Time Associated Diagnosis Comments BASIC METABOLIC PANEL Routine 01/06/2020 11:03 AM CDT Malignant neoplasm of descending colon (CMS/HCC) Malignant neoplasm of upper-inner quadrant of left breast in female, 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) documented in this encounter Results * (ABNORMAL) Basic metabolic panel (01/06/2020 11:03 AM CDT) Glucose 149(H) 65 - 99 mg/dL [facility] Comment: ? Fasting reference interval For someone without known diabetes, a glucose value >125 mg/dL indicates that they may have diabetes and this should be confirmed with a follow-up test. BUN 20 7 - 25 mg/dL [facility] Creatinine 1.16(H) 0.50 - 0.99 mg/dL [facility] Comment: For patients >49 years of age, the reference limit for Creatinine is approximately 13% higher for people identified as -[place]atem[place]. eGFR NON-AFR. LAO 50(L) > OR = 60 mL/min/1. 73m2 [facility] EGFR 58(L) > OR = 60 mL/min/1. 73m2 [facility] BUN/creat ratio 17 6 - 22 (calc) [facility] Sodium 139 135 - 146 mmol/L [facility] Potassium, pl 3.9 3.5 - 5.3 mmol/L [facility] Chloride 104 98 - 110 mmol/L [facility] CO2 26 20 - 32 mmol/L [facility] Calcium 8.9 8.6 - 10.4 mg/dL [facility] Blood specimen (specimen) 01/06/2020 11:03 AM CDT 01/06/2020 11:04 AM CDT us Abbi Ventura MD LAB BLOOD ORDERABLES Final Resul t [facility] [address] [place] [address] documented in this encounter Visit Diagnoses Diagnosis 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)- Primary Malignant neoplasm 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, estrogen receptor negative (HCC) documented in this encounter Care Teams Preforming Machine Operator Relationship Specialty Start Date End Date Ravi Smith MD PCP - General 11/04/17 09/27/21 Aft, Kianna Machado MD PhD [address] [place] [address] Surgeon Surgical Oncology 11/22/17 Santiago Gilbert MD [address] [place], [place] [id number] Lieutenant Firefighter Gastroenterology 11/22/17 Dmitry Sanderson MD [address] [place], [place] [id number] Referring Physician Colon and Rectal Surgery 12/03/1805/06 Abbi Ventura MD [address] [place] [address] [address] [place] [address] Medical Oncologist/Casing Blower Medical Oncology 12/03/18 Montse Thompson MD [address] [place] [address] [address] [place] [address] Consulting Physician Gynecologic Oncology 12/03/18 Lela Hardy MD PhD [address] [place] [address] [address] [place], [place] [id number] Radiation Oncologist Radiation Oncology 12/23/18 Aft, Kianna Machado MD PhD [address] [place] [address] [address] [place], [place] [id number] Surgeon Surgical Oncology 12/23/18 09/17/21 documented as of this encounter
--- OUTSIDE RECORDS SUMMARY | 2024-04-24 13:42 | XMS_ITS | Encounter Summary ---
Author Organization [facility] Address [address] [place] [address] Phone Care Team Providers Care Fuel Cell Battery Technician Name Role Phone Ravi Smith MD Primary Care Provider [phone] Aft, Kianna Machado MD PhD Unavailable [phone] Santiago Gilbert MD Unavailable [phone] Dmitry Sanderson MD Unavailable [phone] Birdie Ventura MD Unavailable Montse Thompson MD Unavailable [phone] Lela Hardy MD PhD Unavailable [phone] Aft, Kianna Machado MD PhD Unavailable [phone] Reason for Referral * Consultation (Routine) - Closed Specialty Diagnoses / Procedures Referred By Contac t Referred To Contact Occupational Therapy Diagnoses 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) Birdie Ventura MD [address] [facility] [address] [place] [address] Phone: tel: fax: [facility] Occupational Therapy [address] [facility] 2[address] [place] [address] Phone: tel: fax: Referral ID Status Reason Start Date Expiration Date V isits Requested Visits Authorized [id number] Closed Specialty Services Required 12/24/2019 01/22/2021 24 37 Question Answer PTRFR OT Evaluate and Treat Reason for Visit Cognitive Therapy related to chemo brain and memory concerns Therapy options discussed with patient? Yes Location provided for therapy services is: Patient requested/Patient preferred Please select the performing region: [facility] (All Locations) [[id number]] Please select the performing department: [phone] [id number] [[id number]] # of visits: 24 * Diagnostic Imaging (Routine) - Closed Specialty Diagnoses / Procedures Referred By Vijaya simpson Referred To Contact Radiology Diagnoses 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) Procedures MRI Breast Bilateral W WO Contrast Birdie Ventura MD [address] [place] [address] Phone: tel: fax: [facility] Referral ID Status Reason Start Date Expiration Date Visits Re quested Visits Authorized [id number] Closed 12/23/2019 01/21/2021 1 1 * MRI/CAT/PET Scan (Routine) - Closed Specialty Diagnoses / Procedures Referred By Vijaya simpson Referred To Contact Radiology Diagnoses 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) Procedures CT chest abdomen pelvis with contrast Birdie Ventura MD [address] [place] [address] Phone: tel: fax: [facility] Referral ID Status Reason Start Date Expiration Date Visits Re quested Visits Authorized [id number] Closed 12/23/2019 01/21/2021 1 1 Encounter Details Date Type Department Care Team (Late st Contact Info) Description 12/23/2019 3:00 PM CDT Office Visit [facility] Oncology [address] [place] [address] Birdie Ventura MD [address] [place] [address] 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) Social History Tobacco Use Types Packs/Day Years Used Date Smoking Tobacco: Former Cigarettes 1 42 1 973 - 2015 Smokeless Tobacco: Never Tobacco Cessation:Counseling Given: Yes Alcohol Use Standard Drinks/Week Comments Not Currently [...] on file Legal Sex Female 1:06 AM SOCK AND STOCKING IRONER Gender Identity Not on file Sexual Orientation Not on file documented as of this encounter Last Filed Vital Signs Vital Sign Reading Time Taken Comments Blood Pressure 111/68 12/23/2019 2:56 PM CDT Pulse 84 12/23/2019 2:56 PM CDT Temperature 36.4 ??C (97.5 ??F) 12/23/2019 2:56 PM CD T Respiratory Rate 16 12/23/2019 2:56 PM CDT Oxygen Saturation 95% 12/23/2019 2:56 PM CDT Inhaled Oxygen Concentration - - Weight 105.4 kg (232 lb 6.4 oz) 12/23/2019 2:56 PM CDT Height - - Body Mass Index 34.32 12/01/2019 3:50 PM CDT documented in this encounter Progress Notes * Vianey Miller, SEO EXPERT - 12/23/2019 3:00 PM CDT The Patient Identifying Data: Aleah Gerber is a 64 y.o. female seen in followup today DIAGNOSIS: 1. 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 [employer] My risk showed no mutation in MLH [...] ~ 1.4 cm, Grade 3, ER 0, KS 0, HER-2 IHC 0. Partial mastectomy and [...] 02/04/2019. Interval History Returns for follow up. She has followed up with PCP regarding body twitching/tremors, who started her on propranolol and Cymbalta with improvement in symptoms. Overall she believes she is doing well.She continues to have breast tenderness, which has not worsened. Left breast is more tender than right. She has been doing self breast exams without concerns. She did call breast surgeon's office several weeks ago reporting breast nipple drainage that she saw in her bra from the right breast. She has since not had recurrence of symptoms. No other complaints. Review of Systems Review of systems positive for symptoms as per interval history. All other review of systems negative. Objective Vitals: Vitals BP 111/68 Pulse 84 Temp 36.4 ??C (97.5 ??F) (Temporal) Resp 16 Wt 105.4 kg (232 lb 6.4 oz) LMP (LMP Unknown) SpO2 95% BMI 34.32 kg/m?? PERFORMANCE STATUS: ECOG 1 SKIN: Normal [...] is very tender on left breast examination and overall appears to have engorgement potentially secondary to radiation changes. Lab/Radiology/Diagnostic Review: Hematology Lab History Some values may be hidden. Unless noted otherwise, only the newest values recorded on each date aredisplayed. Labs - Hematology Latest Ref Range 02/13/19 04/01/19 06/17/19 12/23/19 WBC 3.8 - 9.9 K/cumm 9.4 7.3 6.9 8.1 Total Hb, POC 11.9 - 15.5 g/dL 9.6 (A) 11.2 (A) 11.6 (A) 11.8 (A) Hct 35.6 - 45.5 % 29.5 (A) 33.6 (A) 34.9 (A) 35.9 Plt 150 - 400 K/cumm 136 (A) 156 160 175 Neutrophil abs 1.7 - 6.5 K/cumm 5.6 4.7 5.4 Lymphocytes, abs 0.8 - 3.3 K/cumm 1.0 1.3 1.7 (A) Abnormal value Lab Results Component Value Date SODIUM 142 12/23/2019 POTASSIUM 4.4 12/23/2019 CO2 28 12/23/2019 BUNSER 21 12/23/2019 GLUCOSE 95 12/23/2019 CREATININE 1.46 (H) 12/23/2019 CALCIUM 9.9 12/23/2019 CHLORIDE 103 12/23/2019 ALBUMIN 4.4 12/23/2019 AST 25 12/23/2019 ALT 13 12/23/2019 ALKPHOS 85 12/23/2019 BILITOT 0.5 12/23/2019 PROT 7.3 12/23/2019 ANIONGAP 11 12/23/2019 Tumor Marker History Some values may be hidden. Unless noted otherwise, only the newest values recorded on each date aredisplayed. Tumor Markers Latest Ref Range 04/01/19 06/17/19 12/23/19 CEA <=5.0 ng/mL 2.4 2.2 1.9 Comments are available for some flowsheets but are not being displayed. Recent labs, radiology and pathology reviewed in EPIC ASSESSMENT: T4bN0 disease, Stage IIC colon adenocarcinoma: No evidence of cancer recurrence T2N0, Stage IIA triple negative left breast cancer: Continues to have some tenderness and engorgement secondary to radiation, tenderness most likely related to surgery Complaints of pain in multiple bones and body areas - improved with Cymbalta, previous bone scan negative. MyRisk panel is positive for BRCA2 mutation, and VUS in BRIP1 and NBN: Status post bilateral oophorectomy. She does not want bilateral mastectomy and wants to be monitored closely with alternating Mammograms and Breast MRIs Depression/anxiety: Improved. follow up by Dr. Simms as needed. 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 Aleah Gerber will follow up as directed above, she was encouraged to call in the interim with questions or concerns. We will continue to monitor and review for side effects from treatment. Vianey Miller, MSN, OCN, ANP Nurse Practitioner, Medical Oncology Tire Manager completed by using M*Modal Fluency Direct speaking software, therefore, transcriptionvariances may occur. Cosigned by Birdie Ventura MD at 12/24/2019 5:26 PM CDT documented in this encounter Miscellaneous Notes * Addendum Note - Halle Correa RN - 12/23/2019 3:00 PM CDTAddended by: HALLE CORREA on: 12/24/2019 02:08 PM Modules accepted: Orders documented in this encounter Plan of Treatment Scheduled Referrals Name Type Priority Associated Diagnoses Order Schedule Ambulatory referral order to Occupational Therapy - Outpatient Referral Routine Malignant neoplasm of descending colon (CMS/HCC) Expected: 01/07/2020 (Approximate), Expires: 12/23/2020 documented as of this encounter Results * CEA (04/26/2020 12:44 PM SOCK AND STOCKING IRONER) [facility] CEA 1.8 <=5.0 ng/mL [facility] Comment: Interpretative Data: Reference Range: Non-Smokers: 0.0 - 5.0 ng/mL Smokers: 0.0 ? 6.5 ng/mL This test was developed and its performance characteristics determined by the [facility] in a manner consistent with CLIA requirements. This test has not been cleared or approved by the U.S. Food and Drug Administration. Current interpretive data was last revised 2018. Blood specimen (specimen) 04/26/2020 12:44 PM SOCK AND STOCKING IRONER 04/26/2020 2:37 PM SOCK AND STOCKING IRONER us Birdie Ventura MD LAB BLOOD ORDERABLES Final Resul t [facility] Department [place] [address] * (ABNORMAL) Comprehensive metabolic panel (04/26/2020 12:44 PM SOCK AND STOCKING IRONER) Pathologist [facility] Sodium 142 135 - 145 mmol/L [facility] Potassium, pl 3.5 3.3 - 4.9 mmol/L [facility] Chloride 107 97 - 110 mmol/L [facility] CO2 29 22 - 32 mmol/L [facility] Anion gap 6 2 - 15 mmol/L [facility] BUN 21 8 - 25 mg/dL [facility] Creatinine 1.37(H) 0.60 - 1.10 mg/dL [facility] Glucose 125 70 - 199 mg/dL [facility] Comment: Interpretive Data Fasting glucose [...] 2017. Calcium 9.7 8.5 - 10.3 mg/dL [facility] Bilirubin, total 0.4 0.1 - 1.2 mg/dL [facility] Protein, pl 7.1 6.5 - 8.5 g/dL [facility] Albumin 4.2 3.5 - 5.0 g/dL [facility] Alk phos 110 40 - 130 Units/L [facility] ALT 10 7 - 45 Units/L [facility] AST 20 10 - 45 Units/L [facility] Blood specimen (specimen) 04/26/2020 12:44 PM SOCK AND STOCKING IRONER 04/26/2020 12:46 PM SOCK AND STOCKING IRONER us Birdie Ventura MD LAB BLOOD ORDERABLES Final Resul t [facility] Department [place] [address] * CBC with auto differential (04/26/2020 12:44 PM SOCK AND STOCKING IRONER) Pathologist [facility] WBC 9.9 3.8 - 9.9 K/cumm [facility] Hgb 12.3 11.9 - 15.5 g/dL [facility] Hct 37.5 35.6 - 45.5 % [facility] Plt 189 150 - 400 K/cumm [facility] MPV 9.8 9.1 - 12.3 fL [facility] RBC 4.02 3.90 - 5.20 M/cumm [facility] MCV 93.3 81.3 - 96.4 fL [facility] MCH 30.6 27.1 - 33.3 pg [facility] MCHC 32.8 32.3 - 35.7 g/dL [facility] RDW CV 13.1 11.1 - 14.9 % [facility] RDW SD 44.7 35.7 - 48.1 fL [facility] NRBC abs 0.00 0.00 - 0.01 K/cumm [facility] Blood specimen (specimen) 04/26/2020 12:44 PM SOCK AND STOCKING IRONER 04/26/2020 12:46 PM SOCK AND STOCKING IRONER us Birdie Ventura MD LAB BLOOD ORDERABLES Final Resul t [facility] [place] [address] * MRI Breast Bilateral W WO Contrast (04/19/2020 11:58 AM SOCK AND STOCKING IRONER) Anatomical Region Laterality Modality Breast Bilateral Magnetic Resonan ce 04/19/2020 1:33 PM SOCK AND STOCKING IRONER Impressions 04/19/2020 5:19 PM SOCK AND STOCKING IRONER 1. No suspicious abnormality. Stable LEFT breast [...] Amari Akbar M.D. Narrative 04/19/2020 5:19 PM SOCK AND STOCKING IRONER ALEAH GERBER, : 1955 (64 years), , [...] visualized portions of either axilla. Procedure Note OAmari Dickerson MD - 04/19/2020 ALEAH GERBER, : 1955 [...] by: Amari Akbar M.D. Birdie Ventura MD [facility] MRI PROCEDURES Final Result * CT chest abdomen pelvis with contrast (04/19/2020 10:53 AM SOCK AND STOCKING IRONER) Anatomical Region Laterality Modality Body N/A Computed Tomogra phy 04/19/2020 11:1 2 AM SOCK AND STOCKING IRONER Impressions 04/19/2020 11:12 AM SOCK AND STOCKING IRONER No change when compared to the prior study. Changes of a partial colonic resection but no metastasis or recurrence within the chest, abdomen or pelvis. Electronically signed by: Ovidio Meyers M.D. Narrative 04/19/2020 11:12 AM SOCK AND STOCKING IRONER EXAMINATION: CT CHEST, ABDOMEN AND PELVIS WITH [...] pelvis. Electronically signed by: Ovidio Meyers M.D. Birdie Ventura MD IMG CT PROCEDURES Final Result documented in this encounter Visit Diagnoses Diagnosis 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)- Primary Malignant neoplasm of descending colon 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) Malignant neoplasm of descending colon 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) Malignant neoplasm of descending colon documented in this encounter Orders Appointment Requests Count Last Ordered Date Fi rst Ordered Date ONCBCN CLINIC APPOINTMENT REQUEST 2 020 12/23/2019 ON[facility] LAB APPOINTMENT 1 04/26/2020 documented in this encounter Care Teams Fuel Cell Battery Technician Relationship Specialty Start Date End Date Ravi Smith MD PCP - General 11/04/17 09/27/21 Aft, Kianna Machado MD PhD [address] [place] [address] Surgeon Surgical Oncology 11/22/17 Santiago Gilbert MD [address] [place] [address] Rn Circulating Gastroenterology 11/22/17 Dimtry Sanderson MD [address] [place] [address] Referring Physician Colon and Rectal Surgery 12/03/1805/06 Birdie Ventura MD [address] [place] [address] Medical Oncologist/Wire Mill Operator Medical Oncology 12/03/18 Montse Thompson MD [address] [place] [address] [address] [place] [address] Consulting Physician Gynecologic Oncology 12/03/18 Lela Hardy MD PhD [address] [facility] [address] [place] [address] Radiation Oncologist Radiation Oncology 12/23/18 Aft, Kianna Machado MD PhD [address] [place] [address] [address] [place] [address] Surgeon Surgical Oncology 12/23/18 09/17/21 documented as of this encounter
--- OUTSIDE RECORDS SUMMARY | 2024-04-24 13:42 | XMS_ITS | Encounter Summary ---
Author Organization [facility] Address [address] [place] [address] Phone Care Team Providers Care Investment Accounting Clerk Name Role Phone Ravi Smith MD Primary Care Provider [phone] Aft, Kianna Machado MD PhD Unavailable [phone] Santiago Gilbert MD Unavailable Dmitry Sanderson MD Unavailable [phone] Abbi Ventura MD Unavailable Montse Thompson MD Unavailable [phone] Lela Hardy MD PhD Unavailable [phone] Aft, Kianna Machado MD PhD Unavailable [phone] Reason for Visit * Reason Onset Date Comments DME 07/03/2019 Encounter Details Date Type Department Care Team (Late st Contact Info) Description 07/03/2019 Documentation [facility] Neuro Sleep [address] [place] [id number] Bettina Harper, RN DME Social History Tobacco Use Types Packs/Day Years [...] on file Legal Sex Female 1:06 AM CONTACT WORKER Gender Identity Not on file Sexual Orientation Not on file documented as of this encounter Progress Notes * Bettina Harper RN - 07/03/2019 10:55 AM CST Received a call from [email or web address] and they are unable to obtain an authorization from the insurance as the insurance company requires the DME to be [place] in [place]. Shannon will send the order to [facility] and follow up for set up. Notified the patient that she will receive a phone call from [facility] for set up and that our [facility] Rep will follow up and make sure she is set up. Patient verbalized understanding of the information provided. ACT WORKER documented in this encounter Plan of Treatment Not on file documented as of this encounter Visit Diagnoses Not on filedocumented in this encounter Care Teams Investment Accounting Clerk Relationship Specialty Start Date End Date Ravi Smith MD PCP - General 11/04/17 09/27/21 Aft, Kianna Machado MD PhD [address] [place] [address] Surgeon Surgical Oncology 11/22/17 Santiago Gilbert MD [address] [place] [address] Mold Repair Technician Gastroenterology 11/22/17 Dmitry Sanderson MD [address] [place] [address] Referring Physician Colon and Rectal Surgery 12/03/1805/06 Abbi Ventura MD [address] [facility] [place] [address] Medical Oncologist/Jute Bag Sewer Medical Oncology 12/03/18 Montse Thompson MD [address] [facility] [address] [place], [place] [address] Consulting Physician Gynecologic Oncology 12/03/18 Lela Hardy MD PhD [address] [place] [address] [address] [place] [address] Radiation Oncologist Radiation Oncology 12/23/18 Aft, Kianna Machado MD PhD [address] [facility] [address] [place] [address] Surgeon Surgical Oncology 12/23/18 09/17/21 documented as of this encounter
--- OUTSIDE RECORDS SUMMARY | 2024-04-24 13:42 | XMS_ITS | Encounter Summary ---
Author Organization [facility] Address [address] [place] [address] Phone Care Team Providers Care Account Executive Agribusiness Name Role Phone Ravi Smith MD Primary Care Provider [phone] Aft, Kianna Machado MD PhD Unavailable [phone] Santiago Gilbert MD Unavailable [phone] Dmitry Sanderson MD Unavailable [phone] Abbi Ventura MD Unavailable Montse Thompson MD Unavailable [phone] Lela Hardy MD PhD Unavailable [phone] Aft, Kianna Machado MD PhD Unavailable [phone] Encounter Details Date Type Department Care Team (Late st Contact Info) Description 11/02/2019 Telephone [facility] Surgery [address] [facility] 5th [place] [address] [place] [address] Evon Barahona MD [address] [address] Social History Tobacco Use Types Packs/Day [...] on file Legal Sex Female 1:06 AM FABRICATION MIG WELDER Gender Identity Not on file Sexual Orientation Not on file documented as of this encounter Miscellaneous Notes * Telephone Encounter - Cristy Conde - 11/02/2019 11:09 AM CDT Left message on 11/01 asking if patient wanted to come in and see Dr. Barahona???s Nurse Practitioner Cat Baez on 11/04. AA documented in this encounter Plan of Treatment Not on file documented as of this encounter Visit Diagnoses Not on filedocumented in this encounter Care Teams Account Executive Agribusiness Relationship Specialty Start Date End Date Ravi Smith MD PCP - General 11/04/17 09/27/21 Aft, Kianna Machado MD PhD [address] [place] [address] Surgeon Surgical Oncology 11/22/17 Santiago Gilbert MD [address] [place] [address] Real Estate Officer Gastroenterology 11/22/17 Dmitry Sanderson MD [address] [place] [address] Referring Physician Colon and Rectal Surgery 12/03/1805/06 Abbi Ventura MD [address] [place] [address] [address] [place] [address] Medical Oncologist/Lead Technical Writer Medical Oncology 12/03/18 Montse Thompson MD [address] [facility] [address] [place] [address] Consulting Physician Gynecologic Oncology 12/03/18 Lela Hardy MD PhD [address] [place] [address] [address] [place] [address] Radiation Oncologist Radiation Oncology 12/23/18 Aft, Kianna Machado MD PhD [address] [place] [address] [address] [place] [address] Surgeon Surgical Oncology 12/23/18 09/17/21 documented as of this encounter
--- OUTSIDE RECORDS SUMMARY | 2024-04-24 13:42 | XMS_ITS | Encounter Summary ---
Author Organization [facility] Address [address] [place] [address] Phone Care Team Providers Care Sports Book Server Name Role Phone Ravi Smith MD Primary Care Provider [phone] Aft, Kianna Machado MD PhD Unavailable [phone] Santiago Gilbert MD Unavailable [phone] Dmitry Sanderson MD Unavailable [phone] Abbi Ventura MD Unavailable Montse Thompson MD Unavailable [phone] Lela Hardy MD PhD Unavailable [phone] Aft, iKanna Machado MD PhD Unavailable [phone] Encounter Details Date Type Department Care Team (Late st Contact Info) Description 09/08/2019 Telephone [facility] Neuro Sleep [address] [facility] 6th [address] [place] [address] Rosa Kincaid, RPS Social History Tobacco Use Types Packs/Day Years [...] file 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 Contacting the patient to receive telemedicine consent and answer questions they may have about the appointment with their provider. documented in this encounter Plan of Treatment Not on file documented as of this encounter Visit Diagnoses Not on filedocumented in this encounter Care Teams Sports Book Server Relationship Specialty Start Date End Date Ravi Smith MD PCP - General 11/04/17 09/27/21 Aft, Kianna Machado MD PhD [address] [place] [address] Surgeon Surgical Oncology 11/22/17 Santiago Gilbert MD [address] [place] [address] Magistrate Assistant Gastroenterology 11/22/17 Dmitry Sanderson MD [address] [place] [address] Referring Physician Colon and Rectal Surgery 12/03/1805/06 Abbi Ventura MD [address] [place] [address] [address] [place] [address] Medical Oncologist/Siding Stapler Medical Oncology 12/03/18 Montse Thompson MD [address] [place] [address] Consulting Physician Gynecologic Oncology 12/03/18 Lela Hardy MD PhD [address] [place] [address] [address] [place] [address] Radiation Oncologist Radiation Oncology 12/23/18 Aft, Kianna Machado MD PhD [address] [place] [address] [address] [place] [address] Surgeon Surgical Oncology 12/23/18 09/17/21 documented as of this encounter
--- OUTSIDE RECORDS SUMMARY | 2024-04-24 13:42 | XMS_ITS | Encounter Summary ---
Author Organization [facility] Address [address] [place] [address] Care Team Providers Care Master Machinist Name Role Phone Ravi Smith MD Primary Care Provider [phone] Aft, Kianna Machado MD PhD Unavailable [phone] Santiago Gilbert MD Unavailable [phone] Dmitry Sanderson MD Unavailable [phone] Abbi Ventura MD Unavailable Montse Thompson MD Unavailable [phone] Lela Hardy MD PhD Unavailable [phone] Aft, Kianna Machado MD PhD Unavailable [phone] Reason for Referral * Diagnostic Imaging (Routine) - Closed Specialty Diagnoses / Procedures Referred By Vijaya simpson Referred To Contact Diagnoses HX: breast cancer Procedures Diagnostic Mammogram Bilateral W Jasper Haley CNS Phone: tel: fax: [address] [address] Referral ID Status Reason Start Date Expiration Date Visits Re quested Visits Authorized [id number] Closed 04/23/2019 11/01/2020 1 1 Reason for Visit * Diagnostic Imaging (Routine) - Closed Specialty Diagnoses / Procedures Referred By Contac t Referred To Contact Diagnoses HX: breast cancer Procedures Diagnostic Mammogram Bilateral W Jasper Haley CNS Phone: tel: fax: [address] [address] Referral ID Status Reason Start Date Expiration Date Visits Re quested Visits Authorized [id number] Closed 04/23/2019 11/01/2020 1 1 Encounter Details Date Type Department Care Team (Latest Contact Info) Description 08/17/2019 9:50 AM CDT Hospital Encounter [facility] [address] [place] [address] Aft, Kianna Machado MD PhD [address] [place] [address] Jasper Swanson CNS [address] [address] HX: breast cancer Discharge Disposition: Discharge to home or self [...] on file 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 No / Unsure 2019 4:56 PM CDT documented as of this encounter Medications at Time of Discharge ALPRAZolam (XANAX) 0.25 mg tablet Take 1 tablet (0.25 mg total) by mouth 3 (three) times a day as needed for anxiety 11/07/2017 acetaminophen (TYLENOL) 500 mg tablet Take 1,000 mg by mouth every 6 (six) hours as needed for pain 1 albuterol HFA (PROVENTIL HFA,VENTOLIN HFA,PROAIR HFA) 90 mcg/actuation inhalerIndication s:Acute Asthma Attack Inhale 2 puffs every 6 (six) hours as needed for wheezing 0 AMOXICILLIN 500 mg capsule 06/17/2019 0 atorvastatin (LIPITOR) 20 mg tabletIndications :hyperlipidemia Take 20 mg by mouth nightly 0 02/21/2018 2 biotin 1 mg capsuleIndication s:Biotin Deficiency Take 1 tablet by mouth every morning 0 cholecalciferol (VITAMIN D3) 2,000 unit capsuleIndication s:Osteoporosis Take 2,000 Units by mouth nightly 10/04/2017 0 desoximetasone (TOPICORT) 0.25 % cream APPLY CREAM EXTERNALLY TO AFFECTED AREA EVER NIGHT PRIOR TO VANICREAM 2 04/05/2019 0 dulaglutide (TRULICITY) 0.75 mg/0.5 mL pen injectorIndicatio ns:type 2 diabetes mellitus,saturday Inject 0.75 mg under the skin every 7 days Saturday 1 fluticasone furoate-vilantero l (Breo Ellipta) 200-25 mcg/dose diskus inhaler 0 fluticasone propion-salmetero l (ADVAIR DISKUS) 250-50 mcg/dose diskus inhaler Inhale 1 puff 2 (two) times a day Rinse mouth with water after use. Do not swallow. 1 each 5 02/05/2019 0 gabapentin (NEURONTIN) 300 mg capsule Take 1 capsule (300 mg total) by mouth 3 (three) times a day 90 capsule 11 06/17/2019 0 hydroCHLOROthiazi de (HYDRODIURIL) 12.5 mg tabletIndications :hypertension Take 12.5 mg by mouth every morning 0 02/24/2018 2 magnesium oxide 400 mg magnesium capsuleIndication s:hypomagnesemia Take 1 tablet by mouth 2 (two) times a day 0 mecobalamin, vitamin B12, 1,000 mcg tablet,disintegra ting Place under the tongue every morning 1 nitrofurantoin monohydrate (MACROBID) 100 mg capsule TAKE 1 CAPSULE BY MOUTH EVERY 12 HOURS WITH FOOD FOR 5 DAYS 0 03/23/2019 0 potassium chloride ER (KLOR-CON) 10 mEq CR tablet Take 1 tablet/capsule (10 mEq total) by mouth daily 30 tablet 6 04/01/2019 0 sertraline (ZOLOFT) 50 mg tabletIndications :Anxiety with Depression Take 50 mg by mouth nightly 3 10/23/2018 0 sitaGLIPtin-metfo rmin (JANUMET XR) 100-1,000 mg tablet, ER multiphase 24 hrIndications:typ e 2 diabetes mellitus Take 1 tablet by mouth daily with dinner 1 documented as of this encounter Discharge Disposition Disposition Code Departure Means Destination Discharge to home or self care documented in this encounter Plan of Treatment Not on file documented as of this encounter Procedures Procedure Name Priority Date/Time Associated Diagnosis Comments DIAGNOSTIC MAMMOGRAM BILATERAL W MATHEW Schedule Routine, Read Routine (OP Routine) 08/17/2019 10:12 AM CDT HX: breast cancer documented in this encounter Results * Diagnostic Mammogram Bilateral W Mathew (08/17/2019 10:12 AM CDT) Anatomical Region Laterality Modality Breast Bilateral Mammography 08/17/2019 10:2 0 AM CDT Impressions 08/17/2019 11:47 AM CDT Expected postsurgical/radiation changes of the left breast. ??No mammographic evidence of malignancy. Follow-up in 1 year with screening mammography is recommended. BI-RADS: 2 - Benign. I discussed today's results and follow-up recommendations with the patient. ??She will be entered into a reminder system with a target due date of 1 year for her next mammogram. Electronically signed by: Shay Abreu M.D. Narrative 08/17/2019 11:47 AM CDT EXAMINATION: DIAGNOSTIC MAMMOGRAM BILATERAL W MATHEW ORDERING HEALTHCARE PROVIDER: JASPER SWANSON HISTORY: 64-year-old female presents for annual surveillance status post left lumpectomy for cancer in January 2018. ??Patient has undergone chemoradiation therapy. ??Annual right screening mammogram. COMPARISON: ??Bilateral screening mammogram 08/11/2018. ??Left breast wire localization/surgical specimen radiograph 01/14/2018. Postbiopsy left mammogram 11/12/2017. ??Bilateral diagnostic mammogram 11/05/2017. TECHNIQUE: CC, MLO, and lateral views of the bilateral breasts were obtained with digital technique using breast tomosynthesis with C view. Computer aided detection was utilized. FINDINGS: The breast tissue is heterogeneously dense, which may obscure small masses. ??There are postsurgical changes of the medial left breast and left axilla, with wires overlying the associated scars. ??There is mild trabecular/skin thickening involving the left breast, consistent with radiation therapy change. ??No suspicious masses, suspicious calcifications, or other suspicious findings are seen within either breast. ??There has been no suspicious change involving either breast. Jasper Swanson MANAGER DOCUMENT IMG MAMMO PROCEDURES Final R esult documented in this encounter Visit Diagnoses Diagnosis HX: breast cancer Personal history of malignant neoplasm of breast documented in this encounter Care Teams Master Machinist Relationship Specialty Start Date End Date Ravi Smith MD PCP - General 11/04/17 09/27/21 Aft, Kianna Machado MD PhD [address] [place] [address] Surgeon Surgical Oncology 11/22/17 Santiago Gilbert MD [address] [place] [address] Glass Calibrator Gastroenterology 11/22/17 Dmitry Sanderson MD [address] [place] [address] Referring Physician Colon and Rectal Surgery 12/03/1805/06 Abbi Ventura MD [address] [facility] [address] [place] [address] Medical Oncologist/News Broadcaster Medical Oncology 12/03/18 Montse Thompson MD [address] [facility] [facility] [address] [place] [address] Consulting Physician Gynecologic Oncology 12/03/18 Lela Hardy MD PhD [address] [facility] [address] [place] [address] Radiation Oncologist Radiation Oncology 12/23/18 Aft, Kianna Machado MD PhD [address] [facility] [address] [address] [place] [address] Surgeon Surgical Oncology 12/23/18 09/17/21 documented as of this encounter
--- OUTSIDE RECORDS SUMMARY | 2024-04-24 13:42 | XMS_ITS | Encounter Summary ---
Author Organization [facility] Address [address] [place] [address] Phone Care Team Providers Care Morning News Anchor Name Role Phone Ravi Smith MD Primary Care Provider [phone] Aft, Kianna Machado MD PhD Unavailable Santiago Gilbert MD Unavailable [phone] Dmitry Sanderson MD Unavailable [phone] Abbi Ventura MD Unavailable Montse Thompson MD Unavailable [phone] Lela Hardy MD PhD Unavailable [phone] Aft, Kianna Machado MD PhD Unavailable [phone] Trena Obando MD Unavailable [phone] Dat Benito DO Primary Care Provider [phone] Encounter Details Date Type Department Care Team (Latest Contact Info) Description 11/08/2019 Orders Only [facility] SLEEP Scanning, Provider Social History Tobacco Use Types [...] on file 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 Gender Identity Not on file Sexual Orientation Not on file documented as of this encounter Plan of Treatment Not on file documented as of this encounter Procedures Procedure Name Priority Date/Time Associated Diagnosis Comments SLEEP LAB/STUDY - RESULT 11/08/2019 documented in this encounter Results * SLEEP LAB/STUDY - RESULT (11/08/2019) us Provider Scanning Final Result documented in this encounter Visit Diagnoses Not on filedocumented in this encounter Additional Health Concerns Infection Onset Date Last Indicated Resolved Time COVID: Suspected 05/02/2023 05/02/2023 05/02/2023 3:37 PM HIRED HELP documented as of this encounter Care Teams Morning News Anchor Relationship Specialty Start Date End Date Ravi Smith MD PCP - General 11/04/17 09/27/21 Dat Benito DO [address] [place] [address] PCP - General Internal Medicine 09/28/21 Aft, Kianna Machado MD PhD [address] [place] [address] Surgeon Surgical Oncology 11/22/17 Santiago Gilbert MD [address] [place] [address] Maintainer Central Office Gastroenterology 11/22/17 Dimtry Sanderson MD [address] [place] [address] Referring Physician Colon and Rectal Surgery 12/03/1805/06 Abbi Ventura MD [address] [facility] [address] [place] [address] Medical Oncologist/Dean Of Men Medical Oncology 12/03/18 Montse Thompson MD [address] [facility] [address] [place], [place] [address] Consulting Physician Gynecologic Oncology 12/03/18 Lela Hardy MD PhD [address] [place] [address] [address] [place] [address] Radiation Oncologist Radiation Oncology 12/23/18 Aftatiana, Kianna Machado MD PhD [address] [facility] [address] [place] [address] Surgeon Surgical Oncology 12/23/18 09/17/21 Trena Obando MD [address] [place], [place] [address] Consulting Physician Neurology 09/18/21 documented as of this encounter
--- OUTSIDE RECORDS SUMMARY | 2024-04-24 13:42 | XMS_ITS | Encounter Summary ---
Author Organization [facility] Healthcare Address [address] [place] [address] Care Team Providers Care Primary Care Sales Representative Name Role Phone Ravi Smith MD Primary Care Provider [phone] Aft, Kianna Machado MD PhD Unavailable [phone] Santiago Gilbert MD Unavailable [phone] Dmitry Sanderson MD Unavailable [phone] Abbi Ventura MD Unavailable Montse Thompson MD Unavailable Lela Hardy MD PhD Unavailable [phone] Aft, Kianna Machado MD PhD Unavailable Reason for Visit * Reason Comments Follow-up Encounter Details Date Type Department Care Team (Late st Contact Info) Description 09/16/2019 11:00 AM CDT Telemedicine [facility] Radiation Oncology at [facility] [address] [place] [address] Lela Hardy MD PhD [address] [place] [address] Nasreen Hagan NP [address] [place] [address] Encounter for follow-up examination after completed treatment for malignant neoplasm (Primary Dx); History of breast cancer; Personal history of irradiation Social History Tobacco Use Types Packs/Day Years [...] on file 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 Please continue to apply VaniCream or Montgomery Butter daily to the treated breast. Avoid sun exposure and use sunscreen or protective garments to protect the treated area from sunlight to minimize a skin reaction. I will see you for follow up in 6 months. Follow up with medical and surgical oncology as previously arranged. We know that there are many questions regarding the coronavirus (COVID-19), and the best recommendations in response to it. This is a fluid situation, and one in which recommendations and best practices will likely evolve in the coming days/weeks, if not longer. We recommend the following for all patients: - Stay home when you are sick and avoid contact with those who show signs of illness - Clean and disinfect frequently touched surfaces - Use a tissue to cover your sneeze and cough - Wash your hands often with soap and water, or alcohol-based hand-waterworks operator - For the most current and up to date information, we would recommend accessing the following link for the Centers for Disease Control (CDC): www.cdc.gov/coronavirus For patients who are starting radiation therapy or currently receiving radiation: - If you have any symptoms such as fever, cough, shortness of breath, or any other flu-like symptoms, please call the hospital reeling operator at [phone] and ask for the COVID hotline. Hotline personnel will screen the patients over the phone and if appropriate, direct the patient to the testing sites. This service is currently available 8AM to 4PM Saturday-Saturday and 8AM to 12PM Saturday and Saturday. - After contacting the COVID hotline, please contact the department of radiation oncology to make them aware. Do not come to your scheduled treatment or appointment until the radiation oncology team has instructed you to do so. - If you are diagnosed with COVID-19 infection during your course of radiation therapy, it may be necessary to interrupt your treatment until you have recovered from the infection. Such a break in treatment may result in other adjustments to your radiation prescription and schedule. For patients who have completed radiation therapy and are seeing your radiation oncologist for follow-up: - Your physicians will be reviewing whether he/she thinks it is best for you to keep your scheduledappointments, or whether to reschedule. If your physician feels that it is best to reschedule, his/her team will be in contact with you to assist with rescheduling Please call with any questions or concerns in the meantime. documented in this encounter Progress Notes * Nasreen Hagan NP - 09/16/2019 11:00 AM CDT Radiation Oncologist: Lela Hardy MD PhD Primary Care Physician: Ravi Smith MD Medical Oncologist: Abbi Ventura MD Surgeon: Kianna Bunch MD PhD Date of Service: 09/16/2019 RADIATION ONCOLOGY FOLLOW UP NOTE IDENTIFYING DATA: Cancer Staging Malignant neoplasm of upper-inner quadrant of left breast in female, 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) Staging form: Breast, AJCC 8th Edition - Pathologic: Stage IIA (pT2, pN0(sn), cM0, G3, ER-, VA-, HER2-) - Signed by Roger Dorsey MD on 12/23/2018 - Clinical: Stage IIB (cT2, cN0, cM0, G3, ER-, VA-, HER2-) - Signed by Lela Hardy MD PhD on01/01/2019 Encounter Diagnoses Name Primary? Encounter for follow-up examination after completed treatment for malignant neoplasm Yes ??? History of breast cancer ??? Personal history of irradiation This was a telemedicine visit with Aleah Gerber alone which took place via Telephone. During the visit, I was located at [facility] and the patient was located at home in [place], [place].The session started at 1117 and ended at 1126. The patient has been informed that the visit may not be secure and acknowledged the information. I have explained the option of participating in a telephone or video visit during the - public [facility] emergency to the patient. After being given an opportunity to ask questions about and discuss this type of visit, the patient verbally consented to proceeding with the telephone/video visit.The patient understands that this service replaces an office visit and they may be billed and/or responsible for any applicable copayments. 64 year old female with synchronous breast and colon cancers, BRCA2 mutation, declined prophylacticbilateral mastectomy, pending bilateral BSO. 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 She is status post left breast conserving surgery and sentinel lymph node biopsy with 0/3 nodes, 3.5 cm, no LVI, negative margins. She completed adjuvant AC x 4 followed by left whole breast hypofractionated irradiation to 4256 cGy with a 1000cGy boost to the surgical bed the prone position on 02/04/19. INTERVAL HISTORY Since we last saw Ms Gerber in clinic on 03/18/19, she has been doing quite well. She has had no surgical interventions, medical developments or medication changes. She has noted no changes in her breasts, no new masses or nodules, axillary adenopathy or nipple discharge. She had a mammogram in August that was benign and negative bone scan and CT CAP since we last saw her. She feels that she has healed well from the radiation and that the thickening and tenderness in the left breast has resolved. She has no acute concerns today. PAST MEDICAL, SURGICAL, FAMILY, AND SOCIAL HISTORY History Last Reviewed by Nasreen Hagan NP on 09/16/2019 at 11:22 AM Sections Reviewed Medical, Surgical, Family, Tobacco, Socioeconomic ALLERGIES: Allergies as of 09/16/2019 Reviewed by You at 11:22 AM Severity Noted Reaction Type Reactions Oxaliplatin High 04/23/2018 Infusion Reaction Swollen tongue Throat swelling Tetanus Vaccines And Toxoid Medium 11/12/2017 Swelling, Rash MEDICATIONS: Review Info User Date and Time NASREEN HAGAN NP [[id number]] 09/16/2019 11:22 AM REVIEW OF SYSTEM Review of Systems - [...] immunologic systems. PHYSICAL EXAMINATION: LMP (LMP Unknown) Pain Score and Location 09/16/19 1118 PainSc: 0-No pain Physical Exam DEFERRED FOR TELEHEALTH VISIT Pain 0/10 KPS 100 DIAGNOSTIC REPORTS REVIEWED: Imaging: I personally reviewed the imaging and Bilateral Mammogram at [facility] on 08/17/19: BI-RADS Category 2: benign. Bone Scan at [facility] on 06/24/19: No definite scintigraphic evidence of osseous metastatic disease. CT CAP at [facility] on 05/04/19: 1. No metastatic disease or recurrent disease within the chest,abdomen or pelvis. 2. Interval resolution of pulmonary emboli. MR bilateral breast at [facility] on 04/23/19: 1. Stable LEFT breast conservation changes. No suspicious abnormality in EITHER breast. 2. Annual screening mammography is recommended. The patient will be duefor screening in August 2019. 3. Annual breast MRI can be performed as an adjunct to mammography if clinically indicated. OVERALL FINAL ASSESSMENT: BI-RADS Category 2: Benign. Laboratory/Pathology: I personally reviewed the laboratory and pathology values and Tumor Marker History Some values may be hidden. Unless noted otherwise, only the newest values recorded on each date aredisplayed. Tumor Markers Latest Ref Range 10/20/18 12/03/18 04/01/19 06/17/19 CEA <=5.0 ng/mL 2.7 2.4 2.2 CA 125 ag 0.0 - 35.0 units/mL 12.3 Comments are available for some flowsheets but are not being displayed. Hematology Lab History Some values may be hidden. Unless noted otherwise, only the newest values recorded on each date aredisplayed. Labs - Hematology Latest Ref Range 02/05/19 02/13/19 04/01/1906/17/20 WBC 3.8 - 9.9 K/cumm 8.0 9.4 7.3 6.9 Total Hb, POC 11.9 - 15.5 g/dL 11.0 (A) 9.6 (A) 11.2 (A) 11.6 (A) Hct 35.6 - 45.5 % 33.8 (A) 29.5 (A) 33.6 (A) 34.9 (A) Plt 150 - 400 K/cumm 151 136 (A) 156 160 Neutrophil abs 1.7 - 6.5 K/cumm 6.2 5.6 4.7 (A) Abnormal value Chem/LFT Lab History Some values may be hidden. Unless noted otherwise, only the newest values recorded on each date aredisplayed. Labs-Chem/LFT Latest Ref Range 02/05/19 02/13/19 04/01/19 06/17/19 Sodium 135 - 145 mmol/L 141 138 142 140 Creatinine 0.60 - 1.10 mg/dL 1.16 (A) 1.17 (A) 1.09 1.15 (A) Bilirubin, total 0.1 - 1.2 mg/dL 0.2 0.5 AST 10 - 45 Units/L 17 23 ALT 7 - 45 Units/L 12 13 CrCl- Actual Body Weight (Cockcroft-Gault) 85.7 85 90.6 86.4 (A) Abnormal value ASSESSMENT/PLAN: 64 y.o.female with synchronous breast and [...] prone position on 02/04/19. Ms Gerber is 7 months post radiation and has no radiographic evidence of recurrent or metastatic disease according to her recent imaging. I recommend she continue her BSE routinely and notify a member of her care team of any concerns. We also reviewed radiation recall precautions. RAD ONC PAIN PLAN: The patient is not currently having any pain that requires changes in pain management. DISEASE STATUS: Disease Status: Controlled New metachronous cancer?: No Return to clinic in 6 months for follow up. Follow up with medical and surgical oncology as previously arranged. Ms Gerber is encouraged to call with any questions or concerns in the meantime. Nasreen Hagan NP Adult Gerontology Nurse Practitioner Department of Radiation Oncology This patient was seen in collaboration with Dr. Lela Hardy. Lela Hardy MD, PhD Voice Studies Director Department of Radiation Oncology Cosigned by Lela Hardy MD PhD at 09/20/2019 6:01 PM CDT documented in this encounter Plan of Treatment Not on file documented as of this encounter Visit Diagnoses Diagnosis Encounter for follow-up examination after completed treatment for malignant neoplasm- Primary History of breast cancer Personal history of malignant neoplasm of breast Personal history of irradiation Personal history of irradiation, presenting hazards to health documented in this encounter Discontinued Medications Medication Sig Discontinue Reason Start Date End Da te AMOXICILLIN 500 mg capsule Discontinued by another clinician 06/17/2019 09/16/2019 desoximetasone (TOPICORT) 0.25 % cream APPLY CREAM EXTERNALLY TO AFFECTED AREA EVER NIGHT PRIOR TO VANICREAM Therapy completed 04/05/2019 09/16/2019 fluticasone furoate-vilanterol (Breo Ellipta) 200-25 mcg/dose diskus inhaler Discontinued by another clinician 09/16/2019 nitrofurantoin monohydrate (MACROBID) 100 mg capsule TAKE 1 CAPSULE BY MOUTH EVERY 12 HOURS WITH FOOD FOR 5 DAYS Discontinued by another clinician 03/23/2019 09/16/2019 documented as of this encounter Historical Medications * This list may reflect changes made after this encounter. DULoxetine DR (CYMBALTA) 30 mg capsule TK 1 C PO QD 09/01/2019 09/12/2020 added in this encounter Care Teams Primary Care Sales Representative Relationship Specialty Start Date End Date Ravi Smith MD PCP - General 11/04/17 09/27/21 AftKianna MD PhD [address] [place] [address] Surgeon Surgical Oncology 11/22/17 Santiago Gilbert MD [address] [place] [address] Topstitcher Lockstitch Gastroenterology 11/22/17 Dmitry Sanderson MD [address] [place] [address] Referring Physician Colon and Rectal Surgery 12/03/1805/06 Abbi Ventura MD [address] [place] [address] [address] [place] [address] Medical Oncologist/Fire Operations Forester Medical Oncology 12/03/18 Montse Thompson MD [address] [facility] [address] [place] [address] Consulting Physician Gynecologic Oncology 12/03/18 Lela Hardy MD PhD [address] [place] [address] [address] [place] [address] Radiation Oncologist Radiation Oncology 12/23/18 AftKianna MD PhD [address] [place] [address] Surgeon Surgical Oncology 12/23/18 09/17/21 documented as of this encounter
--- OUTSIDE RECORDS SUMMARY | 2024-04-24 13:42 | XMS_ITS | Encounter Summary ---
Author Organization [facility] Address [address] [place] [address] Phone Care Team Providers Care Podiatric Assistant Name Role Phone Ravi Smith MD Primary Care Provider [phone] Aft, Kianna Machado MD PhD Unavailable [phone] Santiago Gilbert MD Unavailable [phone] Dmitry Sanderson MD Unavailable [phone] Abbi Ventura MD Unavailable Montse Thompson MD Unavailable [phone] Lela Hardy MD PhD Unavailable [phone] Aft, Kianna Machado MD PhD Unavailable [phone] Encounter Details Date Type Department Care Team (Late st Contact Info) Description 07/09/2019 Telephone [facility] Neuro Sleep [address] [facility] 6th Floor [address] [place] [address] Bettina Harper, RN Social History Tobacco Use Types Packs/Day [...] on file 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 OYSTER HARVESTER documented in this encounter Plan of Treatment Not on file documented as of this encounter Visit Diagnoses Not on filedocumented in this encounter Care Teams Podiatric Assistant Relationship Specialty Start Date End Date Ravi Smith MD PCP - General 11/04/17 09/27/21 Aft, Kianna Machado MD PhD [address] [place] [address] Surgeon Surgical Oncology 11/22/17 Santiago Gilbert MD [address] [place] [address] Rn Dermatology Gastroenterology 11/22/17 Dmitry Sanderson MD [address] [place] [address] Referring Physician Colon and Rectal Surgery 12/03/1805/06 Abbi Ventura MD [address] [facility] [address] [place] [address] Medical Oncologist/Commodity Industry Analyst Medical Oncology 12/03/18 Montse Thompson MD [address] [facility] [address] [place] [address] Consulting Physician Gynecologic Oncology 12/03/18 Lela Hardy MD PhD [address] [facility] [address] [place] [address] Radiation Oncologist Radiation Oncology 12/23/18 Aft, Kianna Machado MD PhD [address] [facility] [address] [place] [address] Surgeon Surgical Oncology 12/23/18 09/17/21 documented as of this encounter
--- OUTSIDE RECORDS SUMMARY | 2024-04-24 13:42 | XMS_ITS | Encounter Summary ---
Author Organization [facility] Healthcare Address [address] [place] [address] Care Team Providers Care Paper Sales Manager Name Role Phone Ravi Smith MD Primary Care Provider [phone] Aft, Kianna Machado MD PhD Unavailable [phone] Santiago Gilbert MD Unavailable [phone] Dmitry Sanderson MD Unavailable [phone] Abbi Ventura MD Unavailable Montse Thompson MD Unavailable Lela Hardy MD PhD Unavailable [phone] Aft, Kianna Machado MD PhD Unavailable Encounter Details Date Type Department Care Team (Late st Contact Info) Description 09/17/2019 Telephone [facility] Radiation Oncology at [facility] [address] [place] [address] Diana Crisostomo MA Social History Tobacco Use [...] on file 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 Gender Identity Not on file Sexual Orientation Not on file documented as of this encounter Miscellaneous Notes * Telephone Encounter - Diana Crisostomo MA - 09/17/2019 2:27 PM CDT I spoke with pt and she agreed to come in for next follow-up 03/23/2020 documented in this encounter Plan of Treatment Not on file documented as of this encounter Visit Diagnoses Not on filedocumented in this encounter Care Teams Paper Sales Manager Relationship Specialty Start Date End Date Ravi Smith MD PCP - General 11/04/17 09/27/21 Aft, Kianna Machado MD PhD [address] [place] [address] Surgeon Surgical Oncology 11/22/17 Santiago Gilbert MD [address] [place] [address] Cook Helper Preserves Gastroenterology 11/22/17 Dmitry Sanderson MD [address] [place] [address] Referring Physician Colon and Rectal Surgery 12/03/1805/06 Abbi Ventura MD [address] [place] [address] Medical Oncologist/Air Bag Buffer Medical Oncology 12/03/18 Montse Thompson MD [address] [place] [address] Consulting Physician Gynecologic Oncology 12/03/18 Lela Hardy MD PhD [address] [place] [address] Radiation Oncologist Radiation Oncology 12/23/18 Aft, Kianna Machado MD PhD [address] [facility] [address] [place] [address] Surgeon Surgical Oncology 12/23/18 09/17/21 documented as of this encounter
--- OUTSIDE RECORDS SUMMARY | 2024-04-24 13:42 | XMS_ITS | Encounter Summary ---
Author Organization [facility] Address [address] [place] [address] Phone Care Team Providers Care Printer Small Print Shop Name Role Phone Ravi Smith MD Primary Care Provider [phone] Aft, Kianna Machado MD PhD Unavailable [phone] Santiago Gilbert MD Unavailable [phone] Dmitry Sanderson MD Unavailable [phone] Abbi Ventura MD Unavailable Montse Thompson MD Unavailable [phone] Lela Hardy MD PhD Unavailable [phone] Aft, Kianna Machado MD PhD Unavailable [phone] Encounter Details Date Type Department Care Team (Late st Contact Info) Description 09/07/2019 Telephone [facility] Neuro Sleep [address] [facility] 6th Floor [address] [place] [address] Mora Pedro Social History Tobacco Use Types Packs/Day Years [...] on file 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 Contacting the patient to receive telemedicine consent, send Zoom/ Video invite, and answer questions they may have about the appointment with their provider.- CS documented in this encounter Plan of Treatment Not on file documented as of this encounter Visit Diagnoses Not on filedocumented in this encounter Care Teams Printer Small Print Shop Relationship Specialty Start Date End Date Ravi Smith MD PCP - General 11/04/17 09/27/21 Aft, Kianna Machado MD PhD [address] [place] [address] Surgeon Surgical Oncology 11/22/17 Santiago Gilbert MD [address] [place] [address] Used Car Renovator Gastroenterology 11/22/17 Dmitry Sanderson MD [address] [place] [address] Referring Physician Colon and Rectal Surgery 12/03/1805/06 Abbi Ventura MD [address] [place] [address] [address] [place] [address] Medical Oncologist/Work Manager Medical Oncology 12/03/18 Montse Thompson MD [address] [facility] [address] [place], [place] [address] Consulting Physician Gynecologic Oncology 12/03/18 Lela Hardy MD PhD [address] [facility] [address] [place] [address] Radiation Oncologist Radiation Oncology 12/23/18 Aft, Kianna Machado MD PhD [address] [facility] [address] [place] [address] Surgeon Surgical Oncology 12/23/18 09/17/21 documented as of this encounter
--- OUTSIDE RECORDS SUMMARY | 2024-04-24 13:42 | XMS_ITS | Encounter Summary ---
Author Organization [facility] Address [address] [place] [address] Phone Care Team Providers Care Title Examiner Name Role Phone Ravi Smith MD Primary Care Provider [phone] Aft, Kianna Machado MD PhD Unavailable [phone] Santiago Gilbert MD Unavailable Dmitry Sanderson MD Unavailable [phone] Abbi Ventura MD Unavailable Montse Thompson MD Unavailable [phone] Lela Hardy MD PhD Unavailable [phone] Aft, Kianna Machado MD PhD Unavailable [phone] Encounter Details Date Type Department Care Team (Late st Contact Info) Description 12/03/2019 Telephone 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 Dong. Thanks, Jovita ----- Message ----- From: LUPILLO Rothman Sent: 12/02/2019 9:15 AM CDT To: Adelina Morton RN Subject: follow up Jovita, September I have a [address] Dong? Thanks, Jennifer documented in this encounter Plan of Treatment Not on file documented as of this encounter Visit Diagnoses Not on filedocumented in this encounter Care Teams Title Examiner Relationship Specialty Start Date End Date Ravi Smith MD PCP - General 11/04/17 09/27/21 Aft, Kianna Machado MD PhD [address] [place] [address] Surgeon Surgical Oncology 11/22/17 Santiago Gilbert MD [address] [place] [address] Director Of Head Start Gastroenterology 11/22/17 Dmitry Sanderson MD [address] [place] [address] Referring Physician Colon and Rectal Surgery 12/03/1805/06 Abbi Ventura MD [address] [place], [place] [address] Medical Oncologist/Table And Desk Finisher Medical Oncology 12/03/18 Montse Thompson MD [address] [place] [address] Consulting Physician Gynecologic Oncology 12/03/18 Lela Hardy MD PhD [address] [place] [address] Radiation Oncologist Radiation Oncology 12/23/18 Aft, Kianna Machado MD PhD [address] [place], [place] [address] Surgeon Surgical Oncology 12/23/18 09/17/21 documented as of this encounter
--- OUTSIDE RECORDS SUMMARY | 2024-04-24 13:42 | XMS_ITS | Encounter Summary ---
Author Organization [facility] Address [address] [place] [address] Phone Care Team Providers Care Product Developer Name Role Phone Ravi Smith MD Primary Care Provider [phone] Aft, Kianna Machado MD PhD Unavailable [phone] Santiago Gilbert MD Unavailable [phone] Dmitry Sanderson MD Unavailable [phone] Abbi Ventura MD Unavailable Montse Thompson MD Unavailable [phone] Lela Hardy MD PhD Unavailable [phone] Aft, Kianna Machado MD PhD Unavailable [phone] Encounter Details Date Type Department Care Team (Late st Contact Info) Description 12/16/2019 Orders Only [facility] Pulmonary [address] [facility] [address] [facility] 8th [place] [address] [place] [address] Cristobal Dong MD [address] [place] [address] Social History Tobacco Use Types [...] on file 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 Gender Identity Not on file Sexual Orientation Not on file documented as of this encounter Ordered Prescriptions Prescription Sig Dispense Quantity Refills Last Filled Start Date End Date albuterol HFA (PROVENTIL HFA,VENTOLIN HFA,PROAIR HFA) 90 mcg/actuation inhalerIndications :Acute Asthma Attack Inhale 2 puffs every 6 (six) hours as needed for wheezing 1 Inhaler 5 12/16/2019 1 documented in this encounter Plan of Treatment Not on file documented as of this encounter Visit Diagnoses Not on filedocumented in this encounter Discontinued Medications Medication Sig Discontinue Reason Start Date End Da te albuterol HFA (PROVENTIL HFA,VENTOLIN HFA,PROAIR HFA) 90 mcg/actuation inhalerIndications:Acut e Asthma Attack Inhale 2 puffs every 6 (six) hours as needed for wheezing Reorder 12/16/2019 documented as of this encounter Care Teams Product Developer Relationship Specialty Start Date End Date Ravi Smith MD PCP - General 11/04/17 09/27/21 Aft, Kianna Machado MD PhD [address] [place] [address] Surgeon Surgical Oncology 11/22/17 Santiago Gilbert MD [address] [place] [address] Support Services Tech Gastroenterology 11/22/17 Dmitry Sanderson MD [address] [place] [address] Referring Physician Colon and Rectal Surgery 12/03/1805/06 Abbi Ventura MD [address] [facility] [address] [place], [place] [id number] Medical Oncologist/Home Health Clinical Supervisor Medical Oncology 12/03/18 Montse Thompson MD [address] [facility] [address] [place], [place] [id number] Consulting Physician Gynecologic Oncology 12/03/18 Lela Hardy MD PhD [address] [facility] [address] [place] [address] Radiation Oncologist Radiation Oncology 12/23/18 Aft, Kianna Machado MD PhD [address] [facility] [address] [place], [place] [id number] Surgeon Surgical Oncology 12/23/18 09/17/21 documented as of this encounter
--- OUTSIDE RECORDS SUMMARY | 2024-04-24 13:42 | XMS_ITS | Encounter Summary ---
Author Organization [facility] Address [address] [place] [address] Phone Care Team Providers Care Information Systems Analyst Name Role Phone Ravi Smith MD Primary Care Provider [phone] Aft, Kianna Machado MD PhD Unavailable [phone] Santiago Gilbert MD Unavailable [phone] Dmitry Sanderson MD Unavailable [phone] Abbi Ventura MD Unavailable Montse Thompson MD Unavailable [phone] Lela Hardy MD PhD Unavailable [phone] Aft, Kianna Machado MD PhD Unavailable [phone] Reason for Visit * Reason Onset Date Comments blood work request 12/24/2019 Encounter Details Date Type Department Care Team (Late st Contact Info) Description 12/24/2019 Telephone [facility] Oncology [address] [place] [address] Abbi Ventura MD [address] [facility] [address] [place] [address] blood work request Social History Tobacco Use Types Packs/Day Years [...] on file 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 She said she will make sure to increase fluid intake and will recheck BMP on 01/06/20. DB * Result Encounter Note - Fatemeh Zarate RN - 12/30/2019 8:[address] Ventura, please review and advise. Pt was asked to increase fluid intake. Creatinine increased. DB * Telephone Encounter - Yari Reza RMA - 12/24/2019 10:51 AM CDT Notified patient of all information/instructions. Lab orders placed. * Telephone Encounter - Yari Reza RMA - 12/24/2019 10:48 AM CDT ----- Message from Fatemeh Zarate RN sent at 12/24/2019 8:46 AM CDT ----- Pt creatinine level was elevated at 1.46. Need to call pt and advise that she needs to increase fluids consumption and repeat BMP next week at lab of her choice. She can come here or if she would like to go locally, that is fine. DB documented in this encounter Plan of Treatment Not on file documented as of this encounter Procedures Procedure Name Priority Date/Time Associated Diagnosis Comments BASIC METABOLIC PANEL Routine 12/29/2019 2:27 PM CDT Elevated serum creatinine Malignant neoplasm of upper-inner quadrant of left breast in female, 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) documented in this encounter Results * (ABNORMAL) Basic metabolic panel (12/29/2019 2:27 PM CDT) Glucose 109(H) 65 - 99 mg/dL [facility] Comment: ? Fasting reference interval For someone without known diabetes, a glucose value between 100 and 125 mg/dL is consistent with prediabetes and should be confirmed with a follow-up test. BUN 25 7 - 25 mg/dL [facility] Creatinine 1.52(H) 0.50 - 0.99 mg/dL [facility] Comment: For patients >49 years of age, the reference limit for Creatinine is approximately 13% higher for people identified as -Pakistani. eGFR NON-AFR. SENEGALESE 36(L) > OR = 60 mL/min/1. 73m2 [facility] EGFR 42(L) > OR = 60 mL/min/1. 73m2 [facility] BUN/creat ratio 16 6 - 22 (calc) [facility] Sodium 140 135 - 146 mmol/L [facility] Potassium, pl 3.8 3.5 - 5.3 mmol/L [facility] Chloride 102 98 - 110 mmol/L [facility] CO2 28 20 - 32 mmol/L [facility] Calcium 9.4 8.6 - 10.4 mg/dL [facility] Blood specimen (specimen) 12/29/2019 2:27 PM CDT 12/29/2019 2:29 PM CDT us Abbi Ventura MD LAB BLOOD ORDERABLES Final Resul t [facility] [address] [address] documented in this encounter Visit Diagnoses Diagnosis Elevated serum creatinine- Primary Other nonspecific findings on examination of blood Malignant neoplasm of upper-inner quadrant of left breast in female, estrogen receptor negative (HCC) documented in this encounter Care Teams Information Systems Analyst Relationship Specialty Start Date End Date Ravi Smith MD PCP - General 11/04/17 09/27/21 AftKianna MD PhD [address] [place] [address] Surgeon Surgical Oncology 11/22/17 Santiago Gilbert MD [address] [place] [address] It Support Analyst Gastroenterology 11/22/17 Dmitry Sanderson MD [address] [place] [address] Referring Physician Colon and Rectal Surgery 12/03/1805/06 Abbi Ventura MD [address] [place] [address] Medical Oncologist/Workforce Development Vice President Medical Oncology 12/03/18 Montse Thompson MD [address] [place] [address] Consulting Physician Gynecologic Oncology 12/03/18 Lela Hardy MD PhD [address] [place] [address] Radiation Oncologist Radiation Oncology 12/23/18 Aft, Kianna Machado MD PhD [address] [facility] [address] [place], [place] [address] Surgeon Surgical Oncology 12/23/18 09/17/21 documented as of this encounter
--- OUTSIDE RECORDS SUMMARY | 2024-04-24 13:42 | XMS_ITS | Encounter Summary ---
Author Organization [facility] Address [address] [place] [address] Phone Care Team Providers Care Manager Account Management Name Role Phone Ravi Smith MD Primary Care Provider [phone] Aft, Kianna Machado MD PhD Unavailable [phone] Santiago Gilbert MD Unavailable [phone] Dmitry Sanderson MD Unavailable [phone] Abbi Ventura MD Unavailable Montse Thompson MD Unavailable [phone] Lela Hardy MD PhD Unavailable [phone] Aft, Kianna Machado MD PhD Unavailable [phone] Encounter Details Date Type Department Care Team (Late st Contact Info) Description 12/25/[address] 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 Iconfirmed with her she would like that sent to the [facility] in her file. 12/25/19 Script for lorazepam 0.5mg-2 tablets called into [facility]. Pt to take 1 tablet 30 minutes prior to MRI.DB documented in this encounter Plan of Treatment Not on file documented as of this encounter Visit Diagnoses Not on filedocumented in this encounter Care Teams Manager Account Management Relationship Specialty Start Date End Date Ravi Smith MD PCP - General 11/04/17 09/27/21 Aft, Kianna Machado MD PhD [address] [place] [address] Surgeon Surgical Oncology 11/22/17 Santiago Gilbert MD [address] [place] [address] It Security Analyst Gastroenterology 11/22/17 Dmitry Sanderson MD [address] [place], [place] [id number] Referring Physician Colon and Rectal Surgery 12/03/1805/06 Abbi Ventura MD [address] [place] [address] [address] [place] [address] Medical Oncologist/Extrusion Line Operator Medical Oncology 12/03/18 Montse Thompson MD [address] [place] [address] [address] [place] [address] Consulting Physician Gynecologic Oncology 12/03/18 Lela Hardy MD PhD [address] [place] [address] [address] [place] [address] Radiation Oncologist Radiation Oncology 12/23/18 Aft, Kianna Machado MD PhD [address] [place] [address] [address] [place] [address] Surgeon Surgical Oncology 12/23/18 09/17/21 documented as of this encounter
--- OUTSIDE RECORDS SUMMARY | 2024-04-24 13:42 | XMS_ITS | Encounter Summary ---
Author Organization [facility] Address [address] [place] [address] Phone Care Team Providers Care Oil Paint Shader Name Role Phone Ravi Smith MD Primary Care Provider [phone] Aft, Kianna Machado MD PhD Unavailable [phone] Santiago Gilbert MD Unavailable [phone] Dmitry Sanderson MD Unavailable [phone] bAbi Ventura MD Unavailable Montse Thompson MD Unavailable [phone] Lela Hardy MD PhD Unavailable [phone] Aft, Kianna Machado MD PhD Unavailable [phone] Encounter Details Date Type Department Care Team (Late st Contact Info) Description 10/21/2019 Telephone [facility] Surgery [address] [facility] Advanced Medicine 5th [place] [address] [place] [address] Jessica Swanson, 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 Gender Identity Not on file Sexual Orientation Not on file documented as of this encounter Miscellaneous Notes * Telephone Encounter - Georgette More - 10/21/2019 1:40 PM CDT left msg/letter in mychart letting pt know that the appointment is canceled due to a change in the scheduled/ asked to call back to bronson documented in this encounter Plan of Treatment Not on file documented as of this encounter Visit Diagnoses Not on filedocumented in this encounter Care Teams Oil Paint Shader Relationship Specialty Start Date End Date Ravi Smith MD PCP - General 11/04/17 09/27/21 Aft, Kianna Machado MD PhD [address] [place] [address] Surgeon Surgical Oncology 11/22/17 Santiago Gilbert MD [address] [place] [address] Hedis Manager Gastroenterology 11/22/17 Dmitry Sanderson MD [address] [place] [address] Referring Physician Colon and Rectal Surgery 12/03/1805/06 Abbi Ventura MD [address] [place] [address] [address] [place] [address] Medical Oncologist/Case Packer Medical Oncology 12/03/18 Montse Thompson MD [address] [facility] [address] [place], [place] [id number] Consulting Physician Gynecologic Oncology 12/03/18 Lela Hardy MD PhD [address] [place] [address] [address] [place], [place] [id number] Radiation Oncologist Radiation Oncology 12/23/18 Aft, Kianna Machado MD PhD [address] [place] [address] [address] [place], [place] [id number] Surgeon Surgical Oncology 12/23/18 09/17/21 documented as of this encounter
--- OUTSIDE RECORDS SUMMARY | 2024-04-24 13:42 | XMS_ITS | Encounter Summary ---
Author Organization [facility] Address [address] [place] [address] Phone Care Team Providers Care Underwater Roboticist Name Role Phone Ravi Smith MD Primary Care Provider [phone] Aft, Kianna Machado MD PhD Unavailable [phone] Santiago Gilbert MD Unavailable [phone] Dmitry Sanderson MD Unavailable [phone] Abbi Ventura MD Unavailable Montse Thompson MD Unavailable [phone] Lela Hardy MD PhD Unavailable [phone] Aft, Kianna Machado MD PhD Unavailable [phone] Reason for Referral * Pulmonology (Routine) - Closed Specialty Diagnoses / Procedures Referred By Contac t Referred To Contact Pulmonary Disease Diagnoses Chronic obstructive pulmonary disease, unspecified COPD type (HCC) Procedures Pulmonary Function Test -[facility] Adult PFT Lab- CAM-8D; Spirometry, Oxygen Assessment Titration Cristobal Dong MD [address] [facility] [address] [place] [address] Phone: tel: fax: Referral ID Status Reason Start Date Expiration Date Visits Re quested Visits Authorized [id number] Closed 08/12/2019 02/20/2021 6 6 Reason for Visit * Pulmonology (Routine) - Closed Specialty Diagnoses / Procedures Referred By Contac t Referred To Contact Pulmonary Disease Diagnoses Chronic obstructive pulmonary disease, unspecified COPD type (HCC) Procedures Pulmonary Function Test -[facility] Adult PFT Lab- CAM-8D; Spirometry, Oxygen Assessment Titration Cristobal Dong MD [address] [facility] [address] [place] [address] Phone: tel: fax: Referral ID Status Reason Start Date Expiration Date Visits Re quested Visits Authorized [id number] Closed 08/12/2019 02/20/2021 6 6 Encounter Details Date Type Department Care Team (Latest Contact Info) Description 12/01/2019 3:11 PM CDT - 12/01/2019 11:59 PM CDT Hospital Encounter [facility] Pulmonary [address] 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 Gender Identity Not on file Sexual Orientation [...] (six) hours as needed for wheezing 0 atorvastatin (LIPITOR) 20 mg tabletIndication s:hyperlipidemia Take 20 mg by mouth nightly 0 02/21/2018 2 biotin 1 mg capsuleIndicatio ns:Biotin Deficiency Take 1 tablet by mouth every morning 0 cholecalciferol (VITAMIN D3) 2,000 unit capsuleIndicatio ns:Osteoporosis Take 2,000 Units by mouth nightly 10/04/2017 0 dulaglutide (TRULICITY) 0.75 mg/0.5 mL pen injectorIndicati ons:type 2 diabetes mellitus,saturday Inject 0.75 mg under the skin every 7 days Saturday [address] (CYMBALTA) 30 mg capsule TK 1 C PO QD 09/01/2019 1 fluticasone propion-salmeter ol (ADVAIR DISKUS) 250-50 mcg/dose diskus inhaler Inhale 1 puff 2 (two) times a day Rinse mouth with water after use. Do not swallow. 1 each 5 02/05/2019 0 gabapentin (NEURONTIN) 300 mg capsule Take 1 capsule (300 mg total) by mouth 3 (three) times a day 90 capsule 11 06/17/2019 0 hydroCHLOROthiaz frederick (HYDRODIURIL) 12.5 mg tabletIndication s:hypertension Take 12.5 mg by mouth every morning 0 02/24/2018 2 magnesium oxide 400 mg magnesium capsuleIndicatio ns:hypomagnesemi a Take 1 tablet by mouth 2 (two) times a day 0 mecobalamin, vitamin B12, 1,000 mcg tablet,disintegr ating Place under the tongue every morning 1 potassium chloride ER (KLOR-CON) 10 mEq CR tablet Take 1 tablet/capsule (10 mEq total) by mouth daily 30 tablet 6 04/01/2019 0 sertraline (ZOLOFT) 50 mg tabletIndication s:Anxiety with Depression Take 50 mg by mouth nightly 3 10/23/2018 0 sitaGLIPtin-metf ormin (JANUMET XR) 100-1,000 mg tablet, [...] Diagnosis Comments PULMONARY FUNCTION TEST (PFT) Routine 12/01/2019 3:36 PM CDT Chronic obstructive pulmonary disease, unspecified COPD type ([facility]) documented in this encounter Results * Pulmonary Function Test - (12/01/2019 3:36 PM CDT) FVC PRED 3.67 0.05 - 9.99 Liters [facility] FVC PRE 2.92 0 - 12 Liters [facility] FVC %PRE PRED 79 0 - 300 % [facility] FEV1 PRED 2.85 0.05 - 9.99 Liters [facility] FEV1 PRE 2.15 0 - 12 Liters [facility] FEV1 %PRE PRED 75 0 - 300 % [facility] FEV1/FVC PRED 78 1 - 99 % [facility] FEV1/FVC PRE 74 0 - 12 % [facility] INM27-53% PRED 2.43 0 - 12 L/sec [facility] LAB86-65% PRE 1.60 0 - 12 L/sec [facility] TRS37-42% %PRE PRED 66 0 - 300 % [facility] FEF75% PRED 0.70 0 - 300 L/sec [facility] FEF75% PRE 0.47 0 - 12 L/sec [facility] FEF75% %PRE PRED 66 % [facility] PEF PRED 6.30 0 - 18 L/sec [facility] PEF PRE 6.58 0 - 18 L/sec [facility] PEF %PRE PRED 105 0 - 300 % [facility] PIF PRE 5.12 0 - 18 L/sec [facility] FEV6 PRE 2.80 0 - 12 Liters [facility] FEV1/FEV6 PRE 77 0 - 12 % [facility] VC PRED 3.53 0.05 - 9.99 Liters [facility] TLC PRED 5.79 0.05 - 11.99 Liters [facility] RV PRED 2.27 0.05 - 9.99 Liters [facility] RV/TLC PRED 40 0 - 300 % [facility] FRC N2 PRED 2.81 0.05 - 9.99 Liters [facility] FRC PL PRED 3.31 0.05 - 9.99 Liters [facility] ERV PRED 1.21 0.05 - 9.99 Liters [facility] DLCO PRED 27.5 0.05 - 99.99 mL/mmHg/min [facility] DL ADJ PRED 27.5 1 - 2 mL/mmHg/min [facility] DLCO/VA PRED 5.03 mL/mHg/min/ L [facility] DL/VA ADJ PRED 3.86 mL/mHg/min/ L [facility] RAW PRED 1.13 cmH2O/L/sec [facility] GAW PRED 0.794 L/sec/cmH2O [facility] SRAW PRED 3.76 cmH2O/L/s/L [facility] SGAW PRED 0.262 L/s/cmH2O/L [facility] Anatomical Region Laterality Modality PFT 12/01/2019 3:18 PM CDT Narrative 12/04/2019 4:15 PM CDT [facility] Division of Pulmonary & Critical Care Medicine [address] [place] [address]; [place] [address]; [place], [place] ??[address]; [phone] Pulmonary Function Laboratory Pulmonary Stress Test Simple/Oxygen Assessment Patient: Aleah Gerber Date: 12/01/2019 Physician: Iker Ht: 69 in ?? Wt: 232 lbs Room: OP Bin Cleaner: Jameson : 1955 Diagnosis: COPD Time(min) Distance [...] and agrees with the written final report. Cristobal Dong MD PFT ORDERABLES Final Result documented in this encounter Visit Diagnoses Diagnosis Chronic obstructive pulmonary disease, unspecified COPD type (HCC) documented in this encounter Care Teams Underwater Roboticist Relationship Specialty Start Date End Date Ravi Smith MD PCP - General 11/04/17 09/27/21 Aft, Kianna Machado MD PhD [address] [place] [address] Surgeon Surgical Oncology 11/22/17 Santiago Gilbert MD [address] [place] [address] Manager Renewable Energy Gastroenterology 11/22/17 Dmitry Sanderson MD [address] [place] [address] Referring Physician Colon and Rectal Surgery 12/03/1805/06 Abbi Ventura MD [address] [facility] [address] [place] [address] Medical Oncologist/Commutator Operator Medical Oncology 12/03/18 Montse Thompson MD [address] [facility] [address] [place] [address] Consulting Physician Gynecologic Oncology 12/03/18 Lela Hardy MD PhD [address] [facility] [address] [place] [address] Radiation Oncologist Radiation Oncology 12/23/18 Aft, Kianna Machado MD PhD [address] [facility] [address] [place] [address] Surgeon Surgical Oncology 12/23/18 09/17/21 documented as of this encounter
--- OUTSIDE RECORDS SUMMARY | 2024-04-24 13:42 | XMS_ITS | Encounter Summary ---
Author Organization [facility] Address [address] [place] [address] Phone Care Team Providers Care Band Instrument Maker Name Role Phone Ravi Smith MD Primary Care Provider [phone] Aft, Kianna Machado MD PhD Unavailable [phone] Santiago Gilbert MD Unavailable [phone] Dmitry Sanderson MD Unavailable [phone] Abbi Ventura MD Unavailable Montse Thompson MD Unavailable [phone] Lela Hardy MD PhD Unavailable [phone] Aft, Kianna Machado MD PhD Unavailable [phone] Encounter Details Date Type Department Care Team (Late st Contact Info) Description 12/23/2019 2:30 PM CDT Lab [facility] Oncology [address] [place] [address] Malignant neoplasm of descending colon (CMS/HCC) Social [...] on file 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 Gender Identity Not on file Sexual Orientation Not on file documented as of this encounter Plan of Treatment Not on file documented as of this encounter Procedures Procedure Name Priority Date/Time Associated Diagnosis Comments DIFFERENTIAL AUTO Routine 12/23/2019 2:4 7 PM CDT Malignant neoplasm of descending colon (CMS/HCC) CBC WITH AUTO DIFFERENTIAL Routine 12/23/2019 2:47 PM CDT Malignant neoplasm of descending colon (CMS/HCC) CEA Routine 12/23/2019 2:47 PM CDT Malignant neoplasm of descending colon (CMS/HCC) COMPREHENSIVE METABOLIC PANEL Routine 12/23/2019 2:47 PM CDT Malignant neoplasm of descending colon (CMS/HCC) documented in this encounter Results * Differential, auto (12/23/2019 2:47 PM CDT) Neutrophil abs 5.4 1.7 - 6.5 K/cumm [facility] Imm gran abs 0.0 0.0 - 0.1 K/cumm [facility] Lymphocyte abs 1.7 0.8 - 3.3 K/cumm [facility] Monocyte abs 0.6 0.2 - 0.8 K/cumm [facility] Eosinophil abs 0.3 0.0 - 0.5 K/cumm [facility] Basophil abs 0.1 0.0 - 0.1 K/cumm [facility] Neutrophil pct 67.2 % [facility] Comment: Interpretive Data Percent cell count reference ranges are not reported, since discordance with absolute values may lead to misinterpretation of CBC data. Current Interpretive Data was last revised on 2017. Imm gran pct 0.2 % [facility] Comment: Interpretive Data Percent cell count reference ranges are not reported, since discordance with absolute values may lead to misinterpretation of CBC data. Current Interpretive Data was last revised on 2017. Lymphocyte pct 20.9 % [facility] Comment: Interpretive Data Percent cell count reference ranges are not reported, since discordance with absolute values may lead to misinterpretation of CBC data. Current Interpretive Data was last revised on 2017. Monocyte pct 7.1 % [facility] Comment: Interpretive Data Percent cell count reference ranges are not reported, since discordance with absolute values may lead to misinterpretation of CBC data. Current Interpretive Data was last revised on 2017. Eosinophil pct 3.7 % [facility] Comment: Interpretive Data Percent cell count reference ranges are not reported, since discordance with absolute values may lead to misinterpretation of CBC data. Current Interpretive Data was last revised on 2017. Basophil pct 0.9 % [facility] Comment: Interpretive Data Percent cell count reference ranges are not reported, since discordance with absolute values may lead to misinterpretation of CBC data. Current Interpretive Data was last revised on 2017. Blood specimen (specimen) 12/23/2019 2:47 PM CDT 12/23/2019 2:54 PM CDT us Abbi Ventura MD LAB BLOOD ORDERABLES Final Resul t [facility] [place] [address] * (ABNORMAL) CBC with auto differential (12/23/2019 2:47 PM CDT) WBC 8.1 3.8 - 9.9 K/cumm [facility] Hgb 11.8(L) 11.9 - 15.5 g/dL [facility] Hct 35.9 35.6 - 45.5 % [facility] Plt 175 150 - 400 K/cumm [facility] MPV 10.1 9.1 - 12.3 fL [facility] RBC 3.83(L) 3.90 - 5.20 M/cumm [facility] MCV 93.7 81.3 - 96.4 fL [facility] MCH 30.8 27.1 - 33.3 pg [facility] MCHC 32.9 32.3 - 35.7 g/dL [facility] RDW CV 13.5 11.1 - 14.9 % [facility] RDW SD 46.6 35.7 - 48.1 fL [facility] NRBC abs 0.00 0.00 - 0.01 K/cumm [facility] Blood specimen (specimen) 12/23/2019 2:47 PM CDT 12/23/2019 2:54 PM CDT Abbi Ventura MD LAB BLOOD ORDERABLES Final Resul t [facility] [place] [address] * (ABNORMAL) Comprehensive metabolic panel (12/23/2019 2:47 PM CDT) Sodium 142 135 - 145 mmol/L [facility] Potassium, pl 4.4 3.3 - 4.9 mmol/L [facility] Chloride 103 97 - 110 mmol/L [facility] CO2 28 22 - 32 mmol/L [facility] Anion gap 11 2 - 15 mmol/L [facility] BUN 21 8 - 25 mg/dL [facility] Creatinine 1.46(H) 0.60 - 1.10 mg/dL [facility] Glucose 95 70 - 199 mg/dL [facility] [...] interpretive data was last revised 2017. Calcium 9.9 8.5 - 10.3 mg/dL [facility] Bilirubin, total 0.5 0.1 - 1.2 mg/dL [facility] Protein, pl 7.3 6.5 - 8.5 g/dL [facility] Albumin 4.4 3.5 - 5.0 g/dL [facility] Alk phos 85 40 - 130 Units/L [facility] ALT 13 7 - 45 Units/L [facility] AST 25 10 - 45 Units/L [facility] Blood specimen (specimen) 12/23/2019 2:47 PM CDT 12/23/2019 2:54 PM CDT Narrative [facility] - 12/23/2019 7:14 PM CDT stat stat Abbi Ventura MD LAB BLOOD ORDERABLES Final Resul t Performing Organization Address [facility] de Phone Number [facility] Department [place] [address] * CEA (12/23/2019 2:47 PM CDT) CEA 1.9 <=5.0 ng/mL [facility] Comment: Interpretative Data: Reference Range: Non-Smokers: 0.0 - 5.0 ng/mL Smokers: 0.0 ? 6.5 ng/mL This test was developed and its performance characteristics determined by the [facility] in a manner consistent with CLIA requirements. This test has not been cleared or approved by the U.S. Food and Drug Administration. Current interpretive data was last revised 2018. Blood specimen (specimen) 12/23/2019 2:47 PM CDT 12/23/2019 7:00 PM CDT us Abbi Ventura MD LAB BLOOD ORDERABLES Final Resul t Performing Organization Address [facility] de Phone Number [facility] Department [place] [address] documented in this encounter Visit Diagnoses Diagnosis 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) Malignant neoplasm of descending colon documented in this encounter Orders Appointment Requests Count Last Ordered Date Fi rst Ordered Date ONCBCN LAB APPOINTMENT 1 12/23/2019 documented in this encounter Care Teams Band Instrument Maker Relationship Specialty Start Date End Date Ravi Smith MD PCP - General 11/04/17 09/27/21 Aft, Kianna Machado MD PhD [address] [place] [address] Surgeon Surgical Oncology 11/22/17 Santiago Gilbert MD [address] [place] [address] Astronomy Professor Gastroenterology 11/22/17 Dmitry Sanderson MD [address] [place] [address] Referring Physician Colon and Rectal Surgery 12/03/1805/06 Abbi Ventura [facility] [address] [place] [address] Medical Oncologist/Machine Packager Medical Oncology 12/03/18 Montse Thompson MD [address] [place] [address] [address] [place] [address] Consulting Physician Gynecologic Oncology 12/03/18 Lela Hardy MD PhD [address] [place] [address] [address] [place] [address] Radiation Oncologist Radiation Oncology 12/23/18 Aft, Kianna Machado MD PhD [facility] [address] [place] [address] Surgeon Surgical Oncology 12/23/18 09/17/21 documented as of this encounter
--- OUTSIDE RECORDS SUMMARY | 2024-04-24 13:43 | XMS_ITS | Encounter Summary ---
Author Organization [facility] Address [address] [place] [address] Phone Care Team Providers Care Drafter Electronic Name Role Phone Hugo Smith MD Primary Care Provider [phone] Aft, Kianna Machado MD PhD Unavailable [phone] Santiago Gilbert MD Unavailable [phone] Dmitry Sanderson MD Unavailable [phone] Abbi Ventura MD Unavailable Montse Thompson MD Unavailable Lela Hadry MD PhD Unavailable [phone] Aft, Kianna Machado MD PhD Unavailable [phone] Reason for Referral * Sleep Medicine (Routine) - Closed Specialty Diagnoses / Procedures Referred By Contac t Referred To Contact Diagnoses Hypersomnia, unspecified Procedures Portable/Home Sleep Study Mary Garcia MD [address] [place] [address] Phone: tel: fax: [facility] (All Locations) Referral ID Status Reason Start Date Expiration Date Visits Re quested Visits Authorized [id number] Closed 04/27/2019 11/05/2020 1 1 EW APPRAISER Reason for Visit * Reason Comments Consult * Consultation (Routine) - Closed Specialty Diagnoses / Procedures Referred By Contac t Referred To Contact Sleep Medicine Diagnoses Other acute pulmonary embolism without acute cor pulmonale (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) Chronic obstructive pulmonary disease, unspecified COPD type (HCC) Cristobal Vincent MD [address] [place] [address] Phone: tel: fax: [facility] (All Locations) Referral ID Status Reason Start Date Expiration Date V isits Requested Visits Authorized [id number] Closed Specialty Services Required 02/05/2019 08/16/2020 1 1 Encounter Details Date Type Department Care Team (Late st Contact Info) Description 04/27/2019 2:30 PM REVIEW APPRAISER Office Visit [facility] [address] [facility] 6th [address] [place] [address] Mary Garcia MD [address] [place] [address] Hypersomnia, unspecified (Primary Dx); Other acute pulmonary embolism without acute cor pulmonale (CMS/HCC); Malignant neoplasm of descending colon (CMS/HCC); Chronic obstructive pulmonary disease, unspecified COPD type (CMS/HCC) Social History Tobacco Use Types Packs/Day [...] on file Legal 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 Gender Identity Not on file Sexual Orientation Not on file documented as of this encounter Last Filed Vital Signs Vital Sign Reading Time Taken Comments Blood Pressure 145/72 04/27/2019 2:27 PM REVIEW APPRAISER Pulse 85 04/27/2019 2:27 PM REVIEW APPRAISER Temperature - - Respiratory Rate - - Oxygen Saturation 95% 04/27/2019 2:27 PM REVIEW APPRAISER Inhaled Oxygen Concentration - - Weight 108.4 kg (239 lb) 04/27/2019 2:27 PM REVIEW APPRAISER Height 175.3 cm (5' 9 ) 04/27/2019 2:27 PM REVIEW APPRAISER Body Mass Index 35.29 04/27/2019 2:27 PM REVIEW APPRAISER documented in this encounter Patient Instructions * Patient Instructions* Mary Garcia MD - 04/27/2019 2:30 PM REVIEW APPRAISER Headspace or CALM sandra EW APPRAISER documented in this encounter Progress Notes * Mary Garcia MD - 04/27/2019 12:00 AM CST PATIENT NAME: ALEAH GERBER : 1955 FARHAT: 04/27/2019 REASON FOR OFFICE VISIT: Evaluation for obstructive sleep apnea. HISTORY OF PRESENT ILLNESS: Ms. Gerber is a 63-year-old woman with a history of COPD, colon cancer, breast cancer, diabetes, and hypertension who is sent in consultation by Dr. Vincent for further evaluation of possible obstructive sleep apnea. The patient reports that she has difficulty initiating sleep. She will fall asleep anywhere between 11 p.m. to 4 a.m. However, she feels tired around 11 p.m. and would really like to be able to fall asleep at that point in time. She then gets up anywhere between 8 and 11 a.m. She believes she averages anywhere of 8 to 11 hour of sleep per night. She does note she sometimes sleeps for 16 hours. She does not feel particularly refreshed upon awakening. Her main issue with fallingasleep is that she has great difficulty turning off her mind, tends to worry, and have a lot of racing thoughts. She has experienced a lot of significant medical issues in the last couple years, which has made her life more stressful. She does snore and awakens herself snorting or gasping. No one has told her they witness apneic episodes. She has no morning headaches. She does note dry mouth. She sleeps on her side. She does not walk in her sleep, but does occasionally talk in her sleep. She has a occasional bruxism. She does take naps 2 to 3 times per week, which can be brief or up to 4 hours. She denies falling asleep in sedentary situations, public places, or with driving, but she will get drowsy if she is a passenger wendy car. She denies any cataplexy, sleep paralysis, or sleep hallucinations. PAST MEDICAL HISTORY: 1. 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 2. Mucinous invasive ductal adenocarcinoma, left breast, triple negative, status post partial mastectomy, and sentinel lymph node biopsy January 2018, BRCA2 positive, status post whole breast radiation. 3. Diabetes mellitus. 4. Hypertension. 5. Suspected TIA during chemotherapy. 6. Hypercholesterolemia. 7. History of DVT and PE in May 2018. 8. COPD. 9. Inguinal hernia repair. 10. Bladder suspension. 11. Tubal ligation. MEDICATIONS: 1. Tylenol p.r.n. 2. Albuterol p.r.n. 3. Xanax 0.25 mg t.i.d. p.r.n. 4. Atorvastatin 20 mg at bedtime. 5. Biotin 1 mg a day. 6. Vitamin D3 2000 units a day. 7. Topicort cream. 8. Dulaglutide 0.75 q.week. 9. Advair 250/50 one puff b.i.d. 10. Hydrochlorothiazide 12.5 mg q.a.m. 11. Magnesium oxide 400 mg b.i.d. 12. Vitamin B12 1000 mcg. 13. Potassium chloride 10 mEq a day. 14. Sertraline 50 mg a day. 15. Sitagliptin metformin 100/2000 mg a day. REVIEW OF SYSTEMS: Her weight has been stable over the last few years. She has numbness and tingling related to neuropathy. She does report depression, anxiety. She occasionally has cough and wheezing. She has some chronic back pain. She has heat and cold intolerance. All other systems are negative. FAMILY HISTORY: Positive for hypertension, diabetes, and cancer. Her mother has obstructive sleep apnea. SOCIAL HISTORY: She is a previous 40-pack year smoker, but quit in 2014. No alcohol use since 2014. She drinks 2 to3 caffeinated beverages per day and is unsure how late into the day she drinks them. PHYSICAL EXAMINATION: Vital Signs: Blood pressure 145/72, pulse 85, O2 saturation 95%. Height 5 feet 9 inches, weight 239pounds for a BMI of 35.3. General: Pleasant, white woman in no acute distress. HEENT: Sclerae anicteric. Conjunctivae pink. Mallampati class 3 airway. Positive macroglossia. No cervical lymphadenopathy. Lungs: Clear to auscultation bilaterally. Cardiovascular: S1, S2. No murmurs, rubs, or gallops. Abdomen: Benign. Extremities: No clubbing, cyanosis, or edema. Neuro: Bilateral upper and lower extremity strength is 5/5. DATA: [place] Sleepiness Scale is 6/24. IMPRESSION: Ms. Gerber is a 63-year-old woman with hypertension, diabetes, as well as lung, breast, and colon cancer who has signs and symptoms concerning for obstructive sleep apnea. She also has symptoms of psychophysiologic insomnia related to her multiple medical stressors in the last few years. RECOMMENDATIONS: 1. She will undergo an ambulatory home study. We discussed the limitations of the home studies. Narcisooes find that melatonin sometimes helps her initiate sleep, so I encouraged her to take melatonin on the night of her study, so that we can hopefully get worse sleep time and have less chance of underestimating the severity of her obstructive sleep apnea. If this study is negative, then I would pursue an in-lab study so that we could clearly defined whether or not sleep-disordered breathing is present. 2. I discussed with her the role of positive airway pressure and the treatment of obstructive sleepapnea. 3. I advised her to avoid any caffeine after noon. I also recommended that if she is unable to fallasleep after 20 or 30 minutes to move to another room and perform a quiet activity in dim lighting. 4. I recommend that she use a calm or head space sandra to help with relaxation before bedtime. 5. I will refer her to either Dr. Leo or Dr. Salas for cognitive behavioral therapy for herpsychophysiologic insomnia. 6. I will follow up with the patient after completion of the study. ELECTRONICALLY SIGNED - 04/30/2019 03:13 PM Mary Garcia M.D. lighting director TR/mt cc: CRISTOBAL VINCENT MD [address] [facility] [address] [place] [address] HUGO SMITH MD [address] [place] [address] / EW APPRAISER documented in this encounter Plan of Treatment Not on file documented as of this encounter Results * PORTABLE/HOME SLEEP STUDY (05/29/2019 11:00 AM REVIEW APPRAISER) Narrative Mary Garcia MD - 05/29/2019 11:00 AM REVIEW APPRAISER Mary Garcia MD ? 06/05/2019 ??2:24 PM Portable/Home Sleep Study Date/Time: 05/29/2019 10:00 PM Performed by: Mary Garcia MD Authorized by: Mary Garcia MD Mary Garcia MD SLEEP CENTER ORDERABLES Bethanie l Result documented in this encounter Visit Diagnoses Diagnosis Hypersomnia, unspecified- Primary Other acute pulmonary embolism without acute cor pulmonale (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) Malignant neoplasm of descending colon Chronic obstructive pulmonary disease, unspecified COPD type (HCC) Obstructive sleep apnea Obstructive sleep apnea (adult) (pediatric) documented in this encounter Orders Outpatient Referral Count Last Ordered Date Fir st Ordered Date AMB REFERRAL TO SLEEP MEDICINE 1 04/27/2019 documented in this encounter Care Teams Drafter Electronic Relationship Specialty Start Date End Date Hugo Smith MD PCP - General 11/04/17 09/27/21 Aft, Kianna Machado MD PhD [address] [place] [address] Surgeon Surgical Oncology 11/22/17 Santiago Gilbert MD [address] [place] [address] User Experience Analyst Gastroenterology 11/22/17 Dmitry Sanderson MD [address] [place] [address] Referring Physician Colon and Rectal Surgery 12/03/1805/06 Abbi Ventura MD [address] [place] [address] [address] [place] [address] Medical Oncologist/President Medical Oncology 12/03/18 Montse Thompson MD [address] [place] [address] [address] [place] [address] Consulting Physician Gynecologic Oncology 12/03/18 Lela Hardy MD PhD [address] [place] [address] [address] [place] [address] Radiation Oncologist Radiation Oncology 12/23/18 Aft, Kianna Machado MD PhD [address] [place] [address] [address] [place] [address] Surgeon Surgical Oncology 12/23/18 09/17/21 documented as of this encounter
--- OUTSIDE RECORDS SUMMARY | 2024-04-24 13:43 | XMS_ITS | Encounter Summary ---
Author Organization [facility] Address [address] [place] [address] Phone Care Team Providers Care Chief Yeoman Name Role Phone Ravi Smith MD Primary Care Provider [phone] Aft, Kianna Machado MD PhD Unavailable [phone] Santiago Gilbert MD Unavailable [phone] Dmitry Sanderson MD Unavailable [phone] Abbi Ventura MD Unavailable Montse Thompson MD Unavailable [phone] Llea Hardy MD PhD Unavailable [phone] Aft, Kianna Machado MD PhD Unavailable [phone] Encounter Details Date Type Department Care Team (Late st Contact Info) Description 04/20/2019 Telephone 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 ERCIAL DIVER documented in this encounter Plan of Treatment Not on file documented as of this encounter Visit Diagnoses Not on filedocumented in this encounter Care Teams Chief Yeoman Relationship Specialty Start Date End Date Ravi Smith MD PCP - General 11/04/17 09/27/21 Aft, Kianna Machado MD PhD [address] [place] [address] Surgeon Surgical Oncology 11/22/17 Santiago Gilbert MD [address] [place] [address] Ornithology Teacher Gastroenterology 11/22/17 Dmitry Sanderson MD [address] [place] [address] Referring Physician Colon and Rectal Surgery 12/03/1805/06 Abbi Ventura MD [address] [place] [address] [address] [place] [address] Medical Oncologist/Merchandise Planner Medical Oncology 12/03/18 Montse Thompson MD [address] [facility] [address] [place], [place] [id number] Consulting Physician Gynecologic Oncology 12/03/18 Lela Hardy MD PhD [address] [facility] [address] [place], [place] [id number] Radiation Oncologist Radiation Oncology 12/23/18 Aft, Kianna Machado MD PhD [address] [facility] [address] [place] [address] Surgeon Surgical Oncology 12/23/18 09/17/21 documented as of this encounter
--- OUTSIDE RECORDS SUMMARY | 2024-04-24 13:43 | XMS_ITS | Encounter Summary ---
Author Organization [facility] Address [address] [facility] [address] [place] [address] Phone Care Team Providers Care Veneer Sorter Name Role Phone Hugo Smith MD Primary Care Provider [phone] Aft, Tony Machado MD PhD Unavailable [phone] Santiago Gilbert MD Unavailable [phone] Nicole López MD Unavailable [phone] Birdie Ventura MD Unavailable Montse Thompson MD Unavailable [phone] Lela Hardy MD PhD Unavailable Aft, Tony Machado MD PhD Unavailable [phone] Reason for Visit * Reason Comments Follow-up Encounter Details Date Type Department Care Team (Late st Contact Info) Description 03/30/2019 4:20 PM CD MIXER Office Visit [facility] Obstetrics and Gynecology [address] [facility] Advanced Medicine 13th [place] [address] [place] [address] Montse Thompson MD [address] [facility] [id number] [place] [address] BRCA2 gene mutation positive in [...] on file Legal Sex Female 1:06 AM CD MIXER Gender Identity Not on file Sexual Orientation Not on file documented as of this encounter Last Filed Vital Signs Vital Sign Reading Time Taken Comments Blood Pressure 104/67 03/30/2019 4:33 PM CD MIXER Pulse 103 03/30/2019 4:33 PM CD MIXER Temperature 36.8 ??C (98.2 ??F) 03/30/2019 4:33 PM CS T Respiratory Rate 16 03/30/2019 4:33 PM CD MIXER Oxygen Saturation 97% 03/30/2019 4:33 PM CD MIXER Inhaled Oxygen Concentration - - Weight 104.6 kg (230 lb 9.6 oz) 03/30/2019 4:33 PM CD MIXER Height 175.3 cm (5' 9 ) 03/30/2019 4:33 PM CD MIXER Body Mass Index 34.05 03/30/2019 4:33 PM CD MIXER documented in this encounter Progress Notes * Montse Thompson MD - 03/30/2019 12:00 AM CST PATIENT: ALEAH GERBER : 1955 FARHAT: 03/30/2019 REASON FOR VISIT: Postoperative visit #2 for a BRCA2 mutation. HISTORY OF PRESENT ILLNESS: Ms. Gerber is a gaviota 63-year-old female, who was diagnosed with an invasive [...] hyperplasia. Her washings were unremarkable. The patient feels improved compared to her previous visit. However, the patient still feels not completely healed. The patient never did have a urinary tract infection. The patient has some diffuse abdominal discomfort, but does not need to take any pain medications for this. She feels that her insides are not falling out as dramatically as prior. The patient does complain of numbness and tingling in her hands and feet. She still has increased urinary frequency but no dysuria. She complains of some hot flashes and some fatigue. The patient denies any nausea or vomiting, pelvic pain, pelvic pressure, vaginal bleeding, vaginal discharge, changes in GI habits. PAST MEDICAL HISTORY/REVIEW OF SYSTEMS: Unchanged from November 2018 except for the above updates. PHYSICAL EXAM: General Appearance: The patient is a well-developed, well-nourished female in no acute distress. Vital Signs: Her blood pressure is 104/67, pulse is 103. Her weight is 230 pounds which is a decline of 2 pounds from her last visit. HEENT: Atraumatic, normocephalic, PERRLA, EOMI, EENT: Within normal limits. Neck is supple, withoutthyromegaly or JVD. LN Survey: No supraclavicular, inguinal, or femoral lymphadenopathy. Lungs: Clear to auscultation bilaterally. Heart: Regular rate and rhythm. Positive S1/S2. Breasts: Deferred. Back: No CVA or paraspinal tenderness. Abdomen: Soft, nontender, nondistended. Normoactive bowel sounds. Extremities: No clubbing, cyanosis, or edema. Neurologic: The patient is awake, alert, and oriented x 3. Pelvic Exam: External genitalia: Within normal limits. Urethra: Without masses or tenderness. Urethral meatus: Without any lesions or prolapse. Bladder: No masses or tenderness. Vulva: Normal. Speculum Exam: There is no blood noted in the vault. The vaginal cuff is completely intact. Bimanual: Cervix, uterus and adnexa are surgically absent. No palpable masses, tenderness or nodularity appreciated. Rectovaginal: Confirmatory. Guaiac is negative. ASSESSMENT AND PLAN: A 63-year-old female status post a robotic-assisted TLH/BSO secondary to a BRCA2 mutation. 1. BRCA2 mutation: The patient will need to still continue to follow up every 6 months. 2. Postop: The patient overall seems to be improving. The patient does have a slower recovery than anticipated but still within normal limits. 3. Breast cancer: She is under the care of Dr. Ventura. 4. Colon cancer: The patient is also under the care of some of our radiation oncologists as well asour medical oncologist. 5. Follow-up is in 6 months' time with a CA-125 unless there are any new issues that arise. ELECTRONICALLY SIGNED - 03/31/2019 01:10 PM Premal Dawit Thompson M.D. Professor, Department of Obstetrics and Gynecology Director of Gynecological Oncology Clinical Research Division of Gynecologic Oncology [facility] PHT/sv/#[id number] cc: BIRDIE VENTURA M.D. / TONY BUNCH MD / HUGO SMITH MD / / NICOLE LÓPEZ MD / MELIZA JENNINGS MD / / MIXER documented in this encounter Miscellaneous Notes * Treatment Plan - Montse Thompson MD - 03/30/2019 4:20 PM CST Please schedule Aleah Gerber for the following: Requested Order Contrast Indication When CXR CT Chest, Abdomen, and Pelvis CT Abdomen and Pelvis LEEP (during clinic hours) COLOR MATCHER Ultrasound MRI Mammogram PET Initiate Survivoship Care Plan Surveillance Labs (CBC w/ Diff, CMP, Magnesium, CA125) Labwork: ca125 in 6 months x MIXER documented in this encounter Plan of Treatment Not on file documented as of this encounter Visit Diagnoses Diagnosis BRCA2 gene mutation positive in female- Primary documented in this encounter Historical Medications * This list may reflect changes made after this encounter. nitrofurantoin monohydrate (MACROBID) 100 mg capsule TAKE 1 CAPSULE BY MOUTH EVERY 12 HOURS WITH FOOD FOR 5 DAYS 0 03/23/2019 09/16/2019 added in this encounter Care Teams Veneer Sorter Relationship Specialty Start Date End Date Hugo Smith MD PCP - General 11/04/17 09/27/21 Tony Bunch MD PhD [address] [place] [address] Surgeon Surgical Oncology 11/22/17 Santiago Gilbert MD [address] [place] [address] [employer] Lieutenant Gastroenterology 11/22/17 Nicole López MD [address] [place] [address] Referring Physician Colon and Rectal Surgery 12/03/1805/06 Birdie Ventura MD [address] [place] [address] Medical Oncologist/Organic Preparation Technician Medical Oncology 12/03/18 Montse Thompson MD [address] [facility] [address] [place], [place] [id number] Consulting Physician Gynecologic Oncology 12/03/18 Lela Hardy MD PhD [address] [place], [place] [id number] Radiation Oncologist Radiation Oncology 12/23/18 Tony Bunch MD PhD [address] [place] [address] Surgeon Surgical Oncology 12/23/18 09/17/21 documented as of this encounter
--- OUTSIDE RECORDS SUMMARY | 2024-04-24 13:43 | XMS_ITS | Encounter Summary ---
Author Organization [facility] Address [address] [place] [address] Phone Care Team Providers Care Electrical Technician Instructor Name Role Phone Ravi Smith MD Primary Care Provider [phone] Aft, Kianna Machado MD PhD Unavailable [phone] Santiago Gilbert MD Unavailable [phone] Dmitry Sanderson MD Unavailable [phone] Abbi Ventura MD Unavailable Montse Thompson MD Unavailable [phone] Lela Hardy MD PhD Unavailable [phone] Aft, Kianna Machado MD PhD Unavailable [phone] Encounter Details Date Type Department Care Team (Late st Contact Info) Description 06/18/2019 Orders Only [facility] Surgery [address] [facility] Advanced Medicine 5th [place] [address] [place] [address] Jessica Swanson, [facility] [address] [phone] History of breast cancer (Primary Dx) Social [...] on file Legal Sex Female 1:06 AM TIMBER INCISOR OPERATOR Gender Identity Not on file Sexual Orientation Not on file documented as of this encounter Plan of Treatment Not on file documented as of this encounter Visit Diagnoses Diagnosis History of breast cancer- Primary Personal history of malignant neoplasm of breast documented in this encounter Care Teams Electrical Technician Instructor Relationship Specialty Start Date End Date Ravi Smith MD PCP - General 11/04/17 09/27/21 Aft, Kianna Machado MD PhD [address] [place] [address] Surgeon Surgical Oncology 11/22/17 Santiago Gilbert MD [address] [place] [address] Ladle Pourer Gastroenterology 11/22/17 Dmitry Sanderson MD [address] [place] [address] Referring Physician Colon and Rectal Surgery 12/03/1805/06 Abbi Ventura MD [address] [facility] [address] [place] [address] Medical Oncologist/Ivf Embryologist Medical Oncology 12/03/18 Montse Thompson MD [address] [place] [address] Consulting Physician Gynecologic Oncology 12/03/18 Lela Hardy MD PhD [address] [facility] [address] [place] [address] Radiation Oncologist Radiation Oncology 12/23/18 Aft, Kianna Machado MD PhD [address] [facility] [address] [place] [address] Surgeon Surgical Oncology 12/23/18 09/17/21 documented as of this encounter
--- OUTSIDE RECORDS SUMMARY | 2024-04-24 13:43 | XMS_ITS | Encounter Summary ---
Author Organization [facility] Address [address] [place] [address] Phone Care Team Providers Care House Wirer Helper Name Role Phone Ravi Smith MD Primary Care Provider [phone] Aft, Kianna Machado MD PhD Unavailable [phone] Santiago Gilbert MD Unavailable [phone] Dmitry Sanderson MD Unavailable [phone] Abbi Ventura MD Unavailable Montse Thompson MD Unavailable [phone] Lela Hardy MD PhD Unavailable [phone] Aft, Kianna Machado MD PhD Unavailable [phone] Encounter Details Date Type Department Care Team (Late st Contact Info) Description 04/23/2019 Telephone [facility] Oncology [address] [place] [address] Fatemeh Zarate, RN Social History Tobacco Use [...] on file Legal Sex Female 1:06 AM INFORMATION SYSTEMS DIRECTOR Gender Identity Not on file Sexual Orientation Not on file documented as of this encounter Miscellaneous Notes * Telephone Encounter - Fatemeh Zarate RN - 04/23/2019 6:53 PM CST ----- Message from Fatemeh Zarate RN sent at 04/23/2019 6:52 PM INFORMATION SYSTEMS DIRECTOR ----- Bilateral breast MRI completed on 04/23/19. Spoke to pt and she is aware of results. DB IMPRESSION: ?? 1. Stable LEFT breast conservation changes. No suspicious abnormality in EITHER breast. ?? 2. Annual screening mammography is recommended. The patient will be due for screening in August 2019. ?? 3. Annual breast MRI can be performed as an adjunct to mammography if clinically indicated. ? OVERALL FINAL ASSESSMENT: BI-RADS Category 2: Benign RMATION SYSTEMS DIRECTOR documented in this encounter Plan of Treatment Not on file documented as of this encounter Visit Diagnoses Not on filedocumented in this encounter Care Teams House Wirer Helper Relationship Specialty Start Date End Date Ravi Smith MD PCP - General 11/04/17 09/27/21 Aft, Kianna Machado MD PhD [address] [place] [address] Surgeon Surgical Oncology 11/22/17 Santiago Gilbert MD [address] [place] [address] Litigation Support Analyst Gastroenterology 11/22/17 Dmitry Sanderson MD [address] [place] [address] Referring Physician Colon and Rectal Surgery 12/03/1805/06 Abbi Ventura MD [address] [place], [place] [id number] Medical Oncologist/Rivet Driver Medical Oncology 12/03/18 Montse Thompson MD [address] [place] [address] Consulting Physician Gynecologic Oncology 12/03/18 Lela Hardy MD PhD [address] [place] [address] Radiation Oncologist Radiation Oncology 12/23/18 Aft, Kianna Machado MD PhD [address] [place], [place] [address] Surgeon Surgical Oncology 12/23/18 09/17/21 documented as of this encounter
--- OUTSIDE RECORDS SUMMARY | 2024-04-24 13:43 | XMS_ITS | Encounter Summary ---
Author Organization [facility] Address [address] [place] [address] Phone Care Team Providers Care Associate Programmer Name Role Phone Ravi Smith MD Primary Care Provider [phone] Aft, Kianna Machado MD PhD Unavailable Santiago Gilbert MD Unavailable [phone] Dmitry Sanderson MD Unavailable [phone] Abbi Ventura MD Unavailable Montse Thompson MD Unavailable [phone] Lela Hardy MD PhD Unavailable [phone] Aft, Kianna Machado MD PhD Unavailable [phone] Reason for Referral * Diagnostic Imaging (Routine) - Closed Specialty Diagnoses / Procedures Referred By Contac t Referred To Contact Diagnoses HX: breast cancer Procedures Diagnostic Mammogram Bilateral W Jessica Haley CNS Phone: tel: fax: [address] [address] Referral ID Status Reason Start Date Expiration Date Visits Re quested Visits Authorized [id number] Closed 04/23/2019 11/01/2020 1 1 WORKER Encounter Details Date Type Department Care Team (Late st Contact Info) Description 04/23/2019 Orders Only [facility] Surgery [address] [facility] 5th [place] [address] [place] [address] Jessica Swanson, [facility] [address] [facility] [address] [place] [address] HX: breast cancer (Primary Dx) Social History Tobacco [...] on file Legal Sex Female 1:06 AM LOT WORKER Gender Identity Not on file Sexual Orientation Not on file documented as of this encounter Plan of Treatment Not on file documented as of this encounter Results * Diagnostic Mammogram Bilateral [...] MAMMOGRAM BILATERAL W MATHEW ORDERING HEALTHCARE PROVIDER: JESSICA SWANSON HISTORY: 64-year-old female presents for annual [...] been no suspicious change involving either breast. Jessica Swanson UTILITY LOCATE TECHNICIAN IMG MAMMO PROCEDURES Final R esult documented in this encounter Visit Diagnoses Diagnosis HX: breast cancer- Primary Personal history of malignant neoplasm of breast HX: breast cancer Personal history of malignant neoplasm of breast documented in this encounter Care Teams Associate Programmer Relationship Specialty Start Date End Date Ravi Smith MD PCP - General 11/04/17 09/27/21 Aft, Kianna Machado MD PhD [address] [place] [address] Surgeon Surgical Oncology 11/22/17 Santiago Gilbert MD [address] [place] [address] Mining Consultant Gastroenterology 11/22/17 Dmitry Sanderson MD [address] [place] [address] Referring Physician Colon and Rectal Surgery 12/03/1805/06 Abbi Ventura MD [address] [place] [address] [address] [place] [address] Medical Oncologist/Heavy Equipment Service Manager Medical Oncology 12/03/18 Montse Thompson MD [address] [place] [address] [address] [place] [address] Consulting Physician Gynecologic Oncology 12/03/18 Lela Hardy MD PhD [address] [place] [address] [address] [place] [address] Radiation Oncologist Radiation Oncology 12/23/18 Aft, Kianna Machado MD PhD [address] [place] [address] [address] [place] [address] Surgeon Surgical Oncology 12/23/18 09/17/21 documented as of this encounter
--- OUTSIDE RECORDS SUMMARY | 2024-04-24 13:43 | XMS_ITS | Encounter Summary ---
Author Organization [facility] Care Team Providers Care Vice President Of Product Marketing Name Role Phone Ravi Smith MD Primary Care Provider [phone] Aft, Kianna Machado MD PhD Unavailable [phone] Santiago Gilbert MD Unavailable [phone] Dmitry Sanderson MD Unavailable [phone] Abbi Ventura MD Unavailable Montse Thompson MD Unavailable [phone] Lela Hardy MD PhD Unavailable [phone] Aft, Kianna Machado MD PhD Unavailable [phone] Encounter Details Date Type Department Care Team (Latest Contact Info) Description 04/09/2019 Travel Social History Tobacco Use Types Packs/Day [...] on file Legal 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 Female 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 Gender Identity Not on file Sexual Orientation Not on file documented as of this encounter Plan of Treatment Not on file documented as of this encounter Visit Diagnoses Not on filedocumented in this encounter Care Teams Vice President Of Product Marketing Relationship Specialty Start Date End Date Ravi Smith MD PCP - General 11/04/17 09/27/21 Kianna Bunch MD PhD [address] [place] [address] Surgeon Surgical Oncology 11/22/17 Santiago Gilbert MD [address] [place] [address] Car Changer Gastroenterology 11/22/17 Dmitry Sanderson MD [address] [place] [address] Referring Physician Colon and Rectal Surgery 12/03/1805/06 Abbi Ventura MD [address] [place] [address] [address] [place] [address] Medical Oncologist/Director Process Engineering Medical Oncology 12/03/18 Montse Thompson MD [address] [place] [address] [address] [place] [address] Consulting Physician Gynecologic Oncology 12/03/18 Lela Hardy MD PhD [address] [place] [address] Radiation Oncologist Radiation Oncology 12/23/18 Kianna Bunch MD PhD [address] [place] [address] Surgeon Surgical Oncology 12/23/18 09/17/21 documented as of this encounter
--- OUTSIDE RECORDS SUMMARY | 2024-04-24 13:43 | XMS_ITS | Encounter Summary ---
Author Organization [facility] Healthcare Address [address] [place] [address] Care Team Providers Care Apple Packing Header Name Role Phone Ravi Smith MD Primary Care Provider [phone] Aft, Kianna Machado MD PhD Unavailable [phone] Santiago Gilbert MD Unavailable [phone] Dmitry Sanderson MD Unavailable [phone] Abbi Ventura MD Unavailable Montse Thompson MD Unavailable Lela Hardy MD PhD Unavailable [phone] Aft, Kianna Machado MD PhD Unavailable [phone] Reason for Referral * Diagnostic Imaging (Routine) - Closed Specialty Diagnoses / Procedures Referred By [facility] Referred To Contact Radiology Diagnoses Malignant neoplasm of upper-inner quadrant of left breast in female, estrogen receptor negative (HCC) Procedures CT Chest Abdomen Pelvis W Contrast Abbi Ventura MD [address] [facility] [address] [place] [address] Phone: tel: fax: [facility] Referral ID Status Reason Start Date Expiration Date Visits Re quested Visits Authorized [id number] Closed 04/01/2019 10/10/2020 1 1 RNATIONAL MARKETING SPECIALIST Reason for Visit * Diagnostic Imaging (Routine) - Closed Specialty Diagnoses / Procedures Referred By Contronny t Referred To Contact Radiology Diagnoses Malignant neoplasm of upper-inner quadrant of left breast in female, estrogen receptor negative (HCC) Procedures CT Chest Abdomen Pelvis W Contrast Abbi Ventura MD [address] [facility] [address] [place] [address] Phone: tel: fax: [facility] Referral ID Status Reason Start Date Expiration Date Visits Re quested Visits Authorized [id number] Closed 04/01/2019 10/10/2020 1 1 Encounter Details Date Type Department Care Team (Latest Contact Info) Description 05/04/2019 8:40 AM INTERNATIONAL MARKETING SPECIALIST - 05/04/2019 11:59 PM INTERNATIONAL MARKETING SPECIALIST Hospital Encounter [facility] at [facility] [address] [place] [address] Abbi Ventura MD [address] [facility] [address] [place], [place] [id number] Malignant neoplasm of upper-inner quadrant of left breast in female, 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) Discharge Disposition: Discharge to home or [...] on file Legal Sex Female 1:06 AM INTERNATIONAL MARKETING SPECIALIST Gender Identity Not on file Sexual [...] for wheezing 0 atorvastatin (LIPITOR) 20 mg tabletIndications :hyperlipidemia [...] skin every 7 days Saturday 1 fluticasone propion-salmetero l (ADVAIR DISKUS) 250-50 mcg/dose diskus inhaler Inhale 1 puff 2 (two) times a day Rinse mouth with water after use. Do not swallow. 1 each 5 02/05/2019 0 hydroCHLOROthiazi de (HYDRODIURIL) 12.5 mg tabletIndications [...] CONTRAST Schedule Routine, Read Routine (OP Routine) 05/04/2019 9:09 AM INTERNATIONAL MARKETING SPECIALIST Malignant neoplasm of upper-inner quadrant of left breast in female, 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) documented in this encounter Results * CT Chest Abdomen Pelvis W Contrast (05/04/2019 9:09 AM INTERNATIONAL MARKETING SPECIALIST) Anatomical Region Laterality Modality Body N/A Computed Tomogra phy 05/04/2019 9:24 AM INTERNATIONAL MARKETING SPECIALIST Impressions 05/04/2019 9:24 AM INTERNATIONAL MARKETING SPECIALIST 1. No metastatic disease or recurrent disease within the chest, abdomen or pelvis. 2. Interval resolution of pulmonary emboli. Electronically signed by: Ovidio Meyers M.D. Narrative 05/04/2019 9:24 AM INTERNATIONAL MARKETING SPECIALIST EXAMINATION: CT CHEST, ABDOMEN AND PELVIS WITH INTRAVENOUS CONTRAST TECHNIQUE: Standard CT of the chest, abdomen and pelvis was performed after the administration of intravenous contrast. ??Studies were performed after the administration of the following amount of Optiray 350: 125 mL History: Breast cancer findings: Comparison is made to prior study of 05/28/2018 Chest: No supraclavicular, axillary or mediastinal lymphadenopathy is seen. No internal mammary lymphadenopathy is identified. Scarring is seen within the axilla. No pleural or pericardial effusion is noted. The heart size is within normal limits. Previously seen pulmonary emboli have resolved. There is no new pulmonary embolism. The lung windows are clear other than for minimal basilar atelectasis. No pulmonary edema or pneumonia is seen. No pulmonary nodule is seen. Abdomen/pelvis: The spleen is at upper limit of normal. Pancreas is unremarkable. The liver is diffusely fatty but there is no focal liver lesion. No biliary ductal dilatation. The gallbladder is decompressed. Both adrenal glands are normal. Both kidneys are symmetric without hydronephrosis. A tiny cyst is seen within the right lower kidney without change. The abdominal aorta is normal in caliber with extensive atherosclerosis. The colon and small bowel are normal in caliber. Some surgical changes are seen within the left colon. Patient is post hysterectomy. Mild fat is seen within the wall of the urinary bladder which is likely a function of prior infection. There is no pelvic lymphadenopathy. The bone windows do not demonstrate any osseous lesion. Moderate degenerative changes are seen throughout the lower lumbar spine. Procedure Note Ovidio Meyers MD - 05/04/2019 EXAMINATION: CT CHEST, ABDOMEN AND PELVIS WITH INTRAVENOUS CONTRAST TECHNIQUE: Standard CT of the chest, abdomen and pelvis was performed after the administration of intravenous contrast. Studies were performed after the administration of the following amount of Optiray 350: 125 mL History: Breast cancer findings: Comparison is made to prior study of 05/28/2018 Chest: No supraclavicular, axillary or mediastinal lymphadenopathy is seen. No internal mammary lymphadenopathy is identified. Scarring is seen within the axilla. No pleural or pericardial effusion is noted. The heart size is within normal limits. Previously seen pulmonary emboli have resolved. There is no new pulmonary embolism. The lung windows are clear other than for minimal basilar atelectasis. No pulmonary edema or pneumonia is seen. No pulmonary nodule is seen. Abdomen/pelvis: The spleen is at upper limit of normal. Pancreas is unremarkable. The liver is diffusely fatty but there is no focal liver lesion. No biliary ductal dilatation. The gallbladder is decompressed. Both adrenal glands are normal. Both kidneys are symmetric without hydronephrosis. A tiny cyst is seen within the right lower kidney without change. The abdominal aorta is normal in caliber with extensive atherosclerosis. The colon and small bowel are normal in caliber. Some surgical changes are seen within the left colon. Patient is post hysterectomy. Mild fat is seen within the wall of the urinary bladder which is likely a function of prior infection. There is no pelvic lymphadenopathy. The bone windows do not demonstrate any osseous lesion. Moderate degenerative changes are seen throughout the lower lumbar spine. IMPRESSION: 1. No metastatic disease or recurrent disease within the chest, abdomen or pelvis. 2. Interval resolution of pulmonary emboli. Electronically signed by: Ovidio Meyers M.D. Abbi Ventura MD IMG CT PROCEDURES Final Result documented in this encounter Visit Diagnoses Diagnosis Malignant neoplasm of upper-inner quadrant of left breast in female, estrogen receptor negative (HCC) documented in this encounter Administered Medications Inactive Administered Medications - up to 3 most recent administrations Medication Order MAR Action Action Date Dose Rate Site ioversol (OPTIRAY 350) syringe syringe 125 mL 125 mL, intravenous, Once in imaging, contrast, Starting on 05/04/19 at 0848, For 1 dose Given 05/04/2019 9:05 AM INTERNATIONAL MARKETING SPECIALIST 125 mL documented in this encounter Orders Medications Ordered That Jefferson ht Not Have Been Administered Count Last Ordered Date First Ordered Date ioversol (OPTIRAY 350) syrin ge syringe 125 mL 1 05/04/2019 documented in this encounter Care Teams Apple Packing Header Relationship Specialty Start Date End Date Ravi Smith MD PCP - General 11/04/17 09/27/21 Aft, Kianna Machado MD PhD [address] [place] [address] Surgeon Surgical Oncology 11/22/17 Santiago Gilbert MD [address] [place] [address] Stripper Black And White Gastroenterology 11/22/17 Dmitry Sanderson MD [address] [place] [address] Referring Physician Colon and Rectal Surgery 12/03/1805/06 Abbi Ventura MD [address] [place] [address] [address] [place] [address] Medical Oncologist/Area Loss Prevention Manager Medical Oncology 12/03/18 Montse Thompson MD [facility] [address] [place] [address] Consulting Physician Gynecologic Oncology 12/03/18 Lela Hardy MD PhD [address] [place] [address] [address] [place] [address] Radiation Oncologist Radiation Oncology 12/23/18 Aft, Kianna Machado MD PhD [address] [place] [address] [address] [place] [address] Surgeon Surgical Oncology 12/23/18 09/17/21 documented as of this encounter
--- OUTSIDE RECORDS SUMMARY | 2024-04-24 13:43 | XMS_ITS | Encounter Summary ---
Author Organization [facility] Address [address] [place] [address] Phone Care Team Providers Care Needle Bar Molder Name Role Phone Ravi Smith MD Primary Care Provider [phone] Aft, Kianna Machado MD PhD Unavailable [phone] Santiago Gilbert MD Unavailable [phone] Dmitry Sanderson MD Unavailable [phone] Abbi Ventura MD Unavailable Montse Thompson MD Unavailable [phone] Lela Hardy MD PhD Unavailable [phone] Aft, Kianna Machado MD PhD Unavailable [phone] Encounter Details Date Type Department Care Team (Late st Contact Info) Description 05/08/2019 Telephone [facility] Pulmonary [address] [facility] [address] [place] [address] [place] [id number] Adelina Morton RN Social History Tobacco Use [...] on file Legal Sex Female 1:06 AM HAND SIGN WRITER Gender Identity Not on file Sexual Orientation Not on file documented as of this encounter Miscellaneous Notes * Telephone Encounter - Adelina Morton RN - 05/08/2019 10:17 AM HAND SIGN WRITER Informed pt. that Dr. Dong looked at her Chest CT from 05/04/19 and there was no evidence of pulmonary emboli. Informed her that she will need a minimum of anticoagulation as long as her cancer isin remission. Pt. stated that she already took the anticoagulant for 6mo. and one of her Dr's. stopped it. SIGN WRITER documented in this encounter Plan of Treatment Not on file documented as of this encounter Visit Diagnoses Not on filedocumented in this encounter Care Teams Needle Bar Molder Relationship Specialty Start Date End Date Ravi Smith MD PCP - General 11/04/17 09/27/21 Aft, Kianna Machado MD PhD [address] [place] [address] Surgeon Surgical Oncology 11/22/17 Santiago Gilbert MD [address] [place] [address] Superintendent Division Gastroenterology 11/22/17 Dmitry Sanderson MD [address] [place] [address] Referring Physician Colon and Rectal Surgery 12/03/1805/06 Abbi Ventura MD [address] [place] [address] [address] [place] [address] Medical Oncologist/Bread Slicer Machine Medical Oncology 12/03/18 Montse Thompson MD [address] [facility] [address] [place], [place] [id number] Consulting Physician Gynecologic Oncology 12/03/18 Lela Hardy MD PhD [address] [facility] [address] [place], [place] [id number] Radiation Oncologist Radiation Oncology 12/23/18 Aft, Kianna Machado MD PhD [address] [facility] [address] [place], [place] [id number] Surgeon Surgical Oncology 12/23/18 09/17/21 documented as of this encounter
--- OUTSIDE RECORDS SUMMARY | 2024-04-24 13:43 | XMS_ITS | Encounter Summary ---
Author Organization [facility] Healthcare Address [address] [place] [address] Care Team Providers Care Body Work Auto Trimmer Name Role Phone Ravi Smith MD Primary Care Provider [phone] Aft, Kianna Machado MD PhD Unavailable [phone] Santiago Gilbert MD Unavailable [phone] Dmitry Sanderson MD Unavailable [phone] bAbi Ventura MD Unavailable Montse Thompson MD Unavailable [phone] Lela Hardy MD PhD Unavailable [phone] Aft, Kianna Machado MD PhD Unavailable [phone] Reason for Referral * Diagnostic Imaging (Routine) - Closed Specialty Diagnoses / Procedures Referred By Contac t Referred To Contact Diagnoses 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) Procedures NM Bone Imaging Whole Body Abbi Ventura MD [address] [facility] [address] [place] [address] Phone: tel: fax: [address] [address] Referral ID Status Reason Start Date Expiration Date Visits Re quested Visits Authorized [id number] Closed 06/17/2019 12/26/2020 2 2 E DISPATCHER Reason for Visit * Diagnostic Imaging (Routine) - Closed Specialty Diagnoses / Procedures Referred By Contac t Referred To Contact Diagnoses 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) Procedures NM Bone Imaging Whole Body Abbi Ventura MD [address] [place] [address] Phone: tel: fax: [facility] [address] [place] [address] Referral ID Status Reason Start Date Expiration Date Visits Re quested Visits Authorized [id number] Closed 06/17/2019 12/26/2020 2 2 Encounter Details Date Type Department Care Team (Latest Contact Info) Description 06/24/2019 8:30 AM CABLE DISPATCHER - 06/24/2019 11:59 PM CABLE DISPATCHER Hospital Encounter [facility] [address] [place] [address] Abbi Ventura MD [address] [place] [address] Malignant neoplasm of descending colon (CMS/HCC) Discharge [...] on file Legal Sex Female 1:06 AM CABLE DISPATCHER Gender Identity Not on file Sexual Orientation [...] BODY Schedule Routine, Read Routine (OP Routine) 06/24/2019 12:56 PM CABLE DISPATCHER Malignant neoplasm of descending colon (CMS/HCC) documented in this encounter Results * NM Bone Imaging Whole Body (06/24/2019 12:56 PM CABLE DISPATCHER) Anatomical Region Laterality Modality N/A Digital Radiogra phy 06/24/2019 1:23 PM CABLE DISPATCHER Impressions 06/24/2019 1:31 PM CABLE DISPATCHER No definite scintigraphic evidence of osseous metastatic disease. Dictated by: Meredith Hankins M.D. The radiology attending physician has personally reviewed this study, and had reviewed and/or edited this written report and agrees with it. Electronically signed by: Lela Lainez M.D. Narrative 06/24/2019 1:31 PM CABLE DISPATCHER EXAMINATION: ??BONE SCINTIGRAPHY (WHOLE-BODY) DATE OF STUDY: ?? 06/24/2019 RADIOPHARMACEUTICAL: ?? 22.2 mCi Tc-99m MDP i.v. HISTORY: ??63-year-old woman with left breast cancer status post resection with adjuvant chemotherapy and radiation. ??Evaluate for osseous metastatic disease. FINDINGS: ??Delayed whole-body scintigrams were obtained. ?? Prior nuclear medicine studies used for comparison: none Other radiographic comparisons: CT chest, abdomen, and pelvis with contrast 05/04/2019 Increased soft tissue uptake seen throughout the breasts greater on the left likely related to posttreatment changes. ??Multifocal degenerative uptake involving the left foot, sternoclavicular joint, and shoulders. ??There is an otherwise normal distribution of activity throughout the skeleton. Procedure Note Lela Lainez MD - 06/24/2019 EXAMINATION: BONE SCINTIGRAPHY (WHOLE-BODY) DATE OF STUDY: 06/24/2019 RADIOPHARMACEUTICAL: 22.2 mCi Tc-99m MDP i.v. HISTORY: 63-year-old woman with left breast cancer status post resection with adjuvant chemotherapy and radiation. Evaluate for osseous metastatic disease. FINDINGS: Delayed whole-body scintigrams were obtained. Prior nuclear medicine studies used for comparison: none Other radiographic comparisons: CT chest, abdomen, and pelvis with contrast 05/04/2019 Increased soft tissue uptake seen throughout the breasts greater on the left likely related to posttreatment changes. Multifocal degenerative uptake involving the left foot, sternoclavicular joint, and shoulders. There is an otherwise normal distribution of activity throughout the skeleton. IMPRESSION: No definite scintigraphic evidence of osseous metastatic disease. Dictated by: Meredith Hankins M.D. The radiology attending physician has personally reviewed this study, and had reviewed and/or edited this written report and agrees with it. Electronically signed by: Lela Lainez M.D. 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) Malignant neoplasm of descending colon documented in this encounter Administered Medications Inactive Administered Medications - up to 3 most recent administrations Medication Order MAR Action Action Date Dose Rate Site tc-99m medronate (MDP) injection 20 millicurie 20 millicurie, intravenous, Once in imaging, radiopharmaceutical, Starting on Sat06/24/19 at 0951, For 1 dose, Indications: Diagnostic RadiographyIndications:Lexi gnostic Radiography Given 06/24/2019 9:51 AM CABLE DISPATCHER 22.2 millicuries documented in this encounter Orders Medications Ordered That Jefferson ht Not Have Been Administered Count Last Ordered Date First Ordered Date tc-99m medronate (MDP) injec tion 20 millicurie 1 06/24/2019 documented in this encounter Care Teams Body Work Auto Trimmer Relationship Specialty Start Date End Date Ravi Smith MD PCP - General 11/04/17 09/27/21 AftKianna MD PhD [address] [place] [address] Surgeon Surgical Oncology 11/22/17 Santiago Gilbert MD [address] [place] [address] Oxygen Equipment Aide Gastroenterology 11/22/17 Dmitry Sanderson MD [address] [place] [address] Referring Physician Colon and Rectal Surgery 12/03/1805/06 Abbi Ventura MD [address] [place] [address] Medical Oncologist/Stopping Builder Medical Oncology 12/03/18 Montse Thompsno MD [address] [place] [address] Consulting Physician Gynecologic Oncology 12/03/18 Lela Hardy MD PhD [address] [place] [address] Radiation Oncologist Radiation Oncology 12/23/18 Kianna Bunch MD PhD [address] [place] [address] Surgeon Surgical Oncology 12/23/18 09/17/21 documented as of this encounter
--- OUTSIDE RECORDS SUMMARY | 2024-04-24 13:43 | XMS_ITS | Encounter Summary ---
Author Organization [facility] Address [address] [place] [address] Phone Care Team Providers Care Policy Change Clerk Name Role Phone Ravi Smith MD Primary Care Provider [phone] Aft, Kianna Machado MD PhD Unavailable [phone] Santiago Gilbert MD Unavailable [phone] Dmitry Sanderson MD Unavailable [phone] Abbi Ventura MD Unavailable Montse Thompson MD Unavailable [phone] Lela Hardy MD PhD Unavailable [phone] Aft, Kianna Machado MD PhD Unavailable [phone] Encounter Details Date Type Department Care Team (Late st Contact Info) Description 06/09/2019 Orders Only [facility] Oncology [address] [place] [address] Abbi Ventura MD [address] [place] [address] Malignant neoplasm of upper-inner quadrant of left [...] on file Legal Sex Female 1:06 AM HISTORICAL SOCIETY DIRECTOR Gender Identity Not on file Sexual Orientation Not on file documented as of this encounter Plan of Treatment Not on file documented as of this encounter Results * (ABNORMAL) Comprehensive metabolic panel (06/17/2019 2:22 PM HISTORICAL SOCIETY DIRECTOR) Sodium 140 135 - 145 mmol/L [facility] Potassium, pl 4.6 3.3 - 4.9 mmol/L [facility] Chloride 100 97 - 110 mmol/L [facility] CO2 28 22 - 32 mmol/L [facility] Anion gap 12 2 - 15 mmol/L [facility] BUN 21 8 - 25 mg/dL [facility] Creatinine 1.15(H) 0.60 - 1.10 mg/dL [facility] Glucose 137 70 - 199 mg/dL [facility] interpretive data was last revised 2017. Calcium 10.0 8.5 - 10.3 mg/dL [facility] Bilirubin, total 0.5 0.1 - 1.2 mg/dL [facility] Protein, pl 7.3 6.5 - 8.5 g/dL [facility] Albumin 4.3 3.5 - 5.0 g/dL [facility] Alk phos 92 40 - 130 Units/L [facility] ALT 13 7 - 45 Units/L [facility] AST 23 10 - 45 Units/L [facility] Blood specimen (specimen) 06/17/2019 2:22 PM HISTORICAL SOCIETY DIRECTOR 06/17/2019 2:24 PM HISTORICAL SOCIETY DIRECTOR Narrative [facility] - 06/17/2019 2:47 PM HISTORICAL SOCIETY DIRECTOR stat stat us Abbi Ventura MD LAB BLOOD ORDERABLES Final Resul t Performing Organization Address [facility] Co de Phone Number [facility] [place] [place] [address] * Magnesium (06/17/2019 2:22 PM HISTORICAL SOCIETY DIRECTOR) [facility] Magnesium 1.9 1.4 - 2.5 mg/dL [facility] Blood specimen (specimen) 06/17/2019 2:22 PM HISTORICAL SOCIETY DIRECTOR 06/17/2019 2:24 PM HISTORICAL SOCIETY DIRECTOR Abbi Ventura MD LAB BLOOD ORDERABLES Final Resul t Performing Organization Address [facility] de Phone Number [facility] [place] [place] [address] * (ABNORMAL) CBC with auto differential (06/17/2019 2:22 PM HISTORICAL SOCIETY DIRECTOR) [facility] WBC 6.9 3.8 - 9.9 K/cumm [facility] Hgb 11.6(L) 11.9 - 15.5 g/dL [facility] Hct 34.9(L) 35.6 - 45.5 % [facility] Plt 160 150 - 400 K/cumm [facility] MPV 9.1 9.1 - 12.3 fL [facility] RBC 3.79(L) 3.90 - 5.20 M/cumm [facility] MCV 92.1 81.3 - 96.4 fL [facility] MCH 30.6 27.1 - 33.3 pg [facility] MCHC 33.2 32.3 - 35.7 g/dL [facility] RDW CV 13.4 11.1 - 14.9 % [facility] RDW SD 45.4 35.7 - 48.1 fL [facility] NRBC abs 0.00 0.00 - 0.01 K/cumm [facility] Blood specimen (specimen) 06/17/2019 2:22 PM HISTORICAL SOCIETY DIRECTOR 06/17/2019 2:24 PM HISTORICAL SOCIETY DIRECTOR Abbi Ventura MD LAB BLOOD ORDERABLES Final Resul t Performing Organization Address City/[facility]/ZIP Co de Phone Number [facility] Department [place] [address] * Phosphorus (06/17/2019 2:22 PM HISTORICAL SOCIETY DIRECTOR) Phosphorus, pl 4.1 2.3 - 4.5 mg/dL [facility] Blood specimen (specimen) 06/17/2019 2:22 PM HISTORICAL SOCIETY DIRECTOR 06/17/2019 2:24 PM HISTORICAL SOCIETY DIRECTOR Abbi Ventura MD LAB BLOOD ORDERABLES Final Resul t Performing Organization Address City/[facility] Co de Phone Number [facility] Department [place] [address] documented in this encounter Visit Diagnoses Diagnosis Malignant neoplasm of upper-inner quadrant of left breast in female, estrogen receptor negative (HCC)- Primary Malignant neoplasm of upper-inner quadrant of left breast in female, 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) Malignant neoplasm of descending colon documented in this encounter Care Teams Policy Change Clerk Relationship Specialty Start Date End Date Ravi Smith MD PCP - General 11/04/17 09/27/21 Aft, Kianna Machado MD PhD [address] [place] [address] Surgeon Surgical Oncology 11/22/17 Santiago Gilbert MD [address] [place] [address] Exchange Consultant Gastroenterology 11/22/17 Dmitry Sanderson MD [address] [place] [address] Referring Physician Colon and Rectal Surgery 12/03/1805/06 Abbi Ventura MD [address] [place] [address] Medical Oncologist/Hurl Shaker Medical Oncology 12/03/18 Montse Thompson MD [address] [facility] [place] [address] Consulting Physician Gynecologic Oncology 12/03/18 Lela Hardy MD PhD [address] [facility] [place] [address] Radiation Oncologist Radiation Oncology 12/23/18 Aft, Kianna Machado MD PhD [address] [place] [address] Surgeon Surgical Oncology 12/23/18 09/17/21 documented as of this encounter
--- OUTSIDE RECORDS SUMMARY | 2024-04-24 13:43 | XMS_ITS | Encounter Summary ---
Author Organization [facility] Address [address] [place] [address] Phone Care Team Providers Care Workers Compensation Claims Assistant Name Role Phone Ravi Smith MD Primary Care Provider [phone] Aft, Kianna Machado MD PhD Unavailable [phone] Santiago Gilbert MD Unavailable [phone] Dmitry Sanderson MD Unavailable [phone] Abbi Ventura MD Unavailable Montse Thompson MD Unavailable [phone] Lela Hardy MD PhD Unavailable [phone] Aft, Kianna Machado MD PhD Unavailable Reason for Visit * Reason Onset Date Comments Appointment 06/18/2019 Encounter Details Date Type Department Care Team (Late st Contact Info) Description 06/18/2019 Telephone 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 Confirmed 08/17/19 @10:00 (arrive at 9:30) and follow up with [facility] on 08/20/19. MICROARCHITECT documented in this encounter Plan of Treatment Not on file documented as of this encounter Visit Diagnoses Not on filedocumented in this encounter Care Teams Workers Compensation Claims Assistant Relationship Specialty Start Date End Date Ravi Smith MD PCP - General 11/04/17 09/27/21 Aft, Kianna Machado MD PhD [address] [place] [address] Surgeon Surgical Oncology 11/22/17 Santiago Gilbert MD [address] [place] [address] Lifter Gastroenterology 11/22/17 Dmitry Sanderson MD [address] [place] [address] Referring Physician Colon and Rectal Surgery 12/03/1805/06 Abbi Ventura MD [address] [place] [address] [address] [place] [address] Medical Oncologist/Machine Pecan Picker Medical Oncology 12/03/18 Montse Thompson MD [address] [place] [address] [address] [place] [address] Consulting Physician Gynecologic Oncology 12/03/18 Lela Hardy MD PhD [address] [place] [address] [address] [place] [address] Radiation Oncologist Radiation Oncology 12/23/18 Aft, Kianna Machado MD PhD [address] [place] [address] [address] [place] [address] Surgeon Surgical Oncology 12/23/18 09/17/21 documented as of this encounter
--- OUTSIDE RECORDS SUMMARY | 2024-04-24 13:43 | XMS_ITS | Encounter Summary ---
Author Organization [facility] Address [address] [place] [address] Phone Care Team Providers Care House Sitter Name Role Phone Ravi Smith MD Primary Care Provider [phone] Aft, Kianna Machado MD PhD Unavailable [phone] Santiago Gilbert MD Unavailable Dmitry Sanderson MD Unavailable [phone] Abbi Ventura MD Unavailable Montse Thompson MD Unavailable Lela Hardy MD PhD Unavailable [phone] Aft, Kianna Machado MD PhD Unavailable [phone] Encounter Details Date Type Department Care Team (Late st Contact Info) Description 06/17/2019 3:00 PM MANAGER ANDROID Lab [facility] Oncology [address] [place] [address] Malignant neoplasm of upper-inner quadrant of left [...] file Legal Sex Female 1:06 AM MANAGER ANDROID Gender Identity Not on file Sexual Orientation Not on file documented as of this encounter Plan of Treatment Not on file documented as of this encounter Procedures Procedure Name Priority Date/Time Associated Diagnosis Comments DIFFERENTIAL AUTO Routine 06/17/2019 2:2 2 PM MANAGER ANDROID Malignant neoplasm of upper-inner quadrant of left breast in female, 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) CBC WITH AUTO DIFFERENTIAL Routine 06/17/2019 2:22 PM MANAGER ANDROID Malignant neoplasm of upper-inner quadrant of left breast in female, 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) PHOSPHORUS Routine 06/17/2019 2:22 PM MANAGER ANDROID Malignant neoplasm of upper-inner quadrant of left breast in female, 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) MAGNESIUM Routine 06/17/2019 2:22 PM MANAGER ANDROID Malignant neoplasm of upper-inner quadrant of left breast in female, 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) CEA Routine 06/17/2019 2:22 PM MANAGER ANDROID Malignant neoplasm of descending colon (CMS/HCC) COMPREHENSIVE METABOLIC PANEL Routine 06/17/2019 2:22 PM MANAGER ANDROID Malignant neoplasm of upper-inner quadrant of left breast in female, 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) documented in this encounter Results * CEA (06/17/2019 2:22 PM MANAGER ANDROID) CEA 2.2 <=5.0 ng/mL [facility] Comment: Interpretative Data: Reference Range: Non-Smokers: 0.0 - 5.0 ng/mL Smokers: 0.0 ? 6.5 ng/mL This test was developed and its performance characteristics determined by the [facility] in a manner consistent with CLIA requirements. This test has not been cleared or approved by the U.S. Food and Drug Administration. Current interpretive data was last revised 2018. Blood specimen (specimen) 06/17/2019 2:22 PM MANAGER ANDROID 06/17/2019 7:06 PM MANAGER ANDROID us Abbi Ventura MD LAB BLOOD ORDERABLES Final Resul t [facility] Department [place] [address] * Differential, auto (06/17/2019 2:22 PM MANAGER ANDROID) Neutrophil abs 4.7 1.7 - 6.5 K/cumm [facility] Imm gran abs 0.0 0.0 - 0.1 K/cumm [facility] Lymphocyte abs 1.3 0.8 - 3.3 K/cumm [facility] Monocyte abs 0.4 0.2 - 0.8 K/cumm [facility] Eosinophil abs 0.5 0.0 - 0.5 K/cumm [facility] Basophil abs 0.0 0.0 - 0.1 K/cumm [facility] Neutrophil pct 67.8 % [facility] Comment: Interpretive Data Percent cell count reference ranges are not reported, since discordance with absolute values may lead to misinterpretation of CBC data. Current Interpretive Data was last revised on 2017. Imm gran pct 0.3 % [facility] Comment: Interpretive Data Percent cell count reference ranges are not reported, since discordance with absolute values may lead to misinterpretation of CBC data. Current Interpretive Data was last revised on 2017. Lymphocyte pct 18.8 % [facility] Comment: Interpretive Data Percent cell count reference ranges are not reported, since discordance with absolute values may lead to misinterpretation of CBC data. Current Interpretive Data was last revised on 2017. Monocyte pct 5.4 % [facility] Comment: Interpretive Data Percent cell count reference ranges are not reported, since discordance with absolute values may lead to misinterpretation of CBC data. Current Interpretive Data was last revised on 2017. Eosinophil pct 7.0 % [facility] Comment: Interpretive Data Percent cell count reference ranges are not reported, since discordance with absolute values may lead to misinterpretation of CBC data. Current Interpretive Data was last revised on 2017. Basophil pct 0.7 % [facility] Comment: Interpretive Data Percent cell count reference ranges are not reported, since discordance with absolute values may lead to misinterpretation of CBC data. Current Interpretive Data was last revised on 2017. Blood specimen (specimen) 06/17/2019 2:22 PM MANAGER ANDROID 06/17/2019 2:24 PM MANAGER ANDROID Abbi Ventura MD LAB BLOOD ORDERABLES Final Resul t Performing Organization Address [facility] Co de Phone Number [facility] [place] [address] * Phosphorus (06/17/2019 2:22 PM MANAGER ANDROID) [facility] Phosphorus, pl 4.1 2.3 - 4.5 mg/dL [facility] Blood specimen (specimen) 06/17/2019 2:22 PM MANAGER ANDROID 06/17/2019 2:24 PM MANAGER ANDROID Abbi Ventura MD LAB BLOOD ORDERABLES Final Resul t Performing Organization Address [facility] de Phone Number [facility] [place] [address] * (ABNORMAL) CBC with auto differential (06/17/2019 2:22 PM MANAGER ANDROID) [facility] WBC 6.9 3.8 - 9.9 K/cumm [facility] Hgb 11.6(L) 11.9 - 15.5 g/dL [facility] Hct 34.9(L) 35.6 - 45.5 % [facility] Plt 160 150 - 400 K/cumm [facility] MPV 9.1 9.1 - 12.3 fL [facility] RBC 3.79(L) 3.90 - 5.20 M/cumm [facility] MCV 92.1 81.3 - 96.4 fL [facility] MCH 30.6 27.1 - 33.3 pg [facility] MCHC 33.2 32.3 - 35.7 g/dL [facility] RDW CV 13.4 11.1 - 14.9 % [facility] RDW SD 45.4 35.7 - 48.1 fL [facility] NRBC abs 0.00 0.00 - 0.01 K/cumm [facility] Blood specimen (specimen) 06/17/2019 2:22 PM MANAGER ANDROID 06/17/2019 2:24 PM MANAGER ANDROID Abbi Ventura MD LAB BLOOD ORDERABLES Final Resul t Performing Organization Address City/[facility] Co de Phone Number [facility] [place] [address] * Magnesium (06/17/2019 2:22 PM MANAGER ANDROID) [facility] Magnesium 1.9 1.4 - 2.5 mg/dL [facility] Blood specimen (specimen) 06/17/2019 2:22 PM MANAGER ANDROID 06/17/2019 2:24 PM MANAGER ANDROID Abbi Ventura MD LAB BLOOD ORDERABLES Final Resul t Performing Organization Address [facility] de Phone Number [facility] [place] [address] * (ABNORMAL) Comprehensive metabolic panel (06/17/2019 2:22 PM MANAGER ANDROID) [facility] Sodium 140 135 - 145 mmol/L [facility] Potassium, pl 4.6 3.3 - 4.9 mmol/L [facility] Chloride 100 97 - 110 mmol/L [facility] CO2 28 22 - 32 mmol/L [facility] Anion gap 12 2 - 15 mmol/L [facility] BUN 21 8 - 25 mg/dL [facility] Creatinine 1.15(H) 0.60 - 1.10 mg/dL [facility] Glucose 137 70 - 199 mg/dL [facility] Comment: Interpretive Data Fasting glucose >/= 126 [...] Calcium 10.0 8.5 - 10.3 mg/dL [facility] Bilirubin, total 0.5 0.1 - 1.2 mg/dL [facility] Protein, pl 7.3 6.5 - 8.5 g/dL [facility] Albumin 4.3 3.5 - 5.0 g/dL [facility] Alk phos 92 40 - 130 Units/L [facility] ALT 13 7 - 45 Units/L [facility] AST 23 10 - 45 Units/L [facility] Blood specimen (specimen) 06/17/2019 2:22 PM MANAGER ANDROID 06/17/2019 2:24 PM MANAGER ANDROID Narrative [facility] - 06/17/2019 2:47 PM MANAGER ANDROID stat stat us Abbi Ventura MD LAB BLOOD ORDERABLES Final Resul t [facility] Department [place] [address] documented in this encounter Visit Diagnoses Diagnosis Malignant neoplasm of upper-inner quadrant of left breast in female, 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) Malignant neoplasm of descending colon documented in this encounter Care Teams House Sitter Relationship Specialty Start Date End Date Ravi Smith MD PCP - General 11/04/17 09/27/21 Aft, Kianna Machado MD PhD [address] [place] [address] Surgeon Surgical Oncology 11/22/17 Santiago Gilbert MD [address] [place] [address] Animal Husbandry Professor Gastroenterology 11/22/17 Dmitry Sanderson MD [address] [place] [address] Referring Physician Colon and Rectal Surgery 12/03/1805/06 Abbi Ventura MD [address] [place] [address] Medical Oncologist/Advertising Account Representative Medical Oncology 12/03/18 Montse Thompson MD [address] [place] [address] Consulting Physician Gynecologic Oncology 12/03/18 Lela Hardy MD PhD [address] [place] [address] Radiation Oncologist Radiation Oncology 12/23/18 Aft, Kianna Machado MD PhD [address] [place] [address] Surgeon Surgical Oncology 12/23/18 09/17/21 documented as of this encounter
--- OUTSIDE RECORDS SUMMARY | 2024-04-24 13:43 | XMS_ITS | Encounter Summary ---
Author Organization [facility] Healthcare Address [address] [place] [address] Care Team Providers Care Car Hopper Name Role Phone Ravi Smith MD Primary Care Provider [phone] Aft, Kianna Machado MD PhD Unavailable [phone] Santiago Gilbert MD Unavailable [phone] Dmitry Sanderson MD Unavailable [phone] Abbi Ventura MD Unavailable Montse Thompson MD Unavailable [phone] Lela Hardy MD PhD Unavailable [phone] Aft, Kianna Machado MD PhD Unavailable [phone] Encounter Details Date Type Department Care Team (Late st Contact Info) Description 04/09/2019 8:19 AM PERSONAL CONSULTANT Anesthesia Event [facility] Operating Room [facility] [address] [place] [address] Ashlyn Fletcher MD [address] [place] [address] Lety Landry, KAM [address] [place] [address] Anesthesia Record Procedure Summary Procedure Name Responsible Anesthesiologist Anesthesia Start Time Anesthesia Stop Time REMOVAL PORT A CATH (Right) Ashlyn Fletcher MD 04/09/19 0819 04/09/19 0915 Events Date Time Event Comment 04/09/2019 0732 0819 An Start 0824 In Room 0825 An Start Data 0825 Start Supplemental O2 0834 An Induction The patient was reevaluated immediately before moderate or deep sedation use and before anesthesia induction. 0839 Anesthesia Ready 0842 Proc Start 0843 Incision Start 0911 an stop data 0913 Out of Room 0915 An Stop 0915 Handoff to RN I completed my handoff [...] disposition at the time of handoff: PACU 938 Release from care Meds Name Total midazolam PF 3 mg fentaNYL 50 mcg lidocaine 1 % PF 50 mg propofol 100 mg propofol 508.32 mg ceFAZolin 2,000 mg dexamethasone 4 mg/mL 4 mg ondansetron 2 mg/mL PF 4 mg famotidine PF 20 mg Lactated Ringer's (LR) infusion 700 mL * Agents Name O2% N2O O2 * Blood No blood administrations on file. Lines, Drains, and Airways Type Details Placement Removal Implanted Port Placement Date: 01/14/18; Type: Power; Orientation: Right; Location: Chest; Inserted by: DR BUNCH; Removal Time: 04/09/19; Removal Reason: 0848 01/14/18 0000 by Cat Boss 04/09/19 0848 by Deana Soria, LYDIA RETIRED Surgical Site 02/13/19; 0658; Perineum; 05/04/19; Removal date unknown/not present on admission 02/13/19 0658 by Cat Brar RN 05/04/19 0000 by Reina Grullon RN Peripheral IV Placement Date: 04/09/19; Placement Time: 07; Catheter Size: 22 G; Orientation: Right; Location: Hand; Site Prep: Chlorhexidine; Inserted by: Abena Matamoros rn; Insertion Attempts: 1; Patient Tolerance: Tolerated well; Removal Date: 04/09/19; Removal Time: 0904/09/19 0705 by Dulce Wiley RN 04/09/19 0957 by Cornelia Sanchez RN documented in this encounter Social History [...] on file Legal Sex Female 1:06 AM PERSONAL CONSULTANT Gender Identity Not on file Sexual Orientation Not on file documented as of this encounter OR Notes * Anesthesia Postprocedure Evaluation - Anita Ozuna MD - 04/09/2019 9:39 AM CST Patient: Aleah Gerber Procedure Summary Date: 04/09/19 Room / Location: [facility] CAM OR POD 4 ROOM A / [facility] CAM OR POD 4 Anesthesia Start: 818 Anesthesia Stop: 914 Procedure: REMOVAL PORT A CATH (Right ) Diagnosis: Malignant neoplasm of female breast, unspecified estrogen receptor status, unspecified laterality, unspecified site of breast (CMS/HCC) (Removal of rt port for breast cancer) Surgeon: Kianna Bunch MD PhD Responsible Provider: Ashlyn Fletcher MD Anesthesia Type: MAC ASA Status: 2 Anesthesia Type: MAC Last vitals BP 157/84 Pulse 73 Temp 36.1 ??C (97 ??F) (Temporal) Resp 12 SpO2 96% Anesthesia Post Evaluation Patient location during evaluation: PACU Patient participation: complete - patient participated Level of consciousness: fully awake Pain score: 1 Pain management: adequate Airway patency: adequate Anesthetic complications: no Cardiovascular status: acceptable and hemodynamically stable Respiratory status: acceptable Hydration status: acceptable Pt is: normothermic Nausea/Vomiting status: none ONAL CONSULTANT * Anesthesia Preprocedure Evaluation - Ashlyn Fletcher MD - 03/26/2019 6:23 PM CST Images from the original note were not included. [facility] Preoperative Evaluation Record Evaluation type/location: [facility]AP [facility] OR (Pod 4) Date: 03/26/19 NOTE: This note represents a preoperative evaluation initiated via telephone interview. NO PHYSICALEXAM was performed at the time of initial assessment. A physical exam may be added to this note anddocumented below. Anesthesia Evaluation Aleah Gerber is a 63 y.o. female Procedure(s): REMOVAL PORT A CATH Pre-Op Diagnosis Codes: * Malignant neoplasm of female breast, unspecified estrogen receptor status, unspecified laterality, unspecified site of breast (CMS/HCC) [C50.919] HISTORY HPI Aleah Gerber is a 63 y.o. female who is being evaluated prior to undergoing removal RIGHT port-a-cath for history breast cancer. Past Medical History Information obtained from: patient and chart. Neurological + TIA (TIA x1 > 15 yrs ago) Number of TIA episodes: 1. Date of last TIA: 2003 . + Psychiatric history - anxiety and depression Pertinent negatives: seizures; CVA/stroke and dementia/mild cognitive impairment Cardiovascular + Hypertension (HTN Dx'd in 2018 during chemo & formerly on antihypertensive agent & d/c 'd2/2 normal BP readings ) Hypertension year diagnosed: 2017 . Typical systolic BP - 130 Typical diastolic BP - 80 + Hyperlipidemia + DVT/PE (RLE DVT & PE; Home Eliquis Tx ) Number of DVT/PE episodes: 1. Last VTE date: 05/2018 . Respiratory + COPD (last reported use of Albuteral ~ 09/2018 ) Dyspnea frequency: 2 days/week or less. Rescue inhaler use: 2 days/week or less. Hospitalizations/ER in the last year: 1. Most recent exacerbation: 09/2018 . FEV1 % predicted: 72%. + Asthma (stable asthma. Onset of SOB was w/ chemotherapy started in 2019. Sxs improved w/ cessation of chemo) Dyspnea frequency: 2 days/week or less. Rescue inhaler use: 2 days/week or less. Hospitalizations/ER in the last year: 1. Most recent exacerbation: 09/2018 . FEV1 % predicted: 72%. Pertinent negatives: no history of oral steriod use; no history of oral steroid use; no prior intubation for respiratory failure and no prior intubation for respiratory failure due to asthma Comments: Established w a corporate travel consultant this past year Hepatic / Heme + Liver disease (Hepatic Steatosis ) - other. + History of anemia - iron deficiency Renal / Renal/ system: negative Musculoskeletal/Pain + Chronic pain - back pain. + Osteoarthritis Endocrine / Other + Diabetes mellitus (PCP manages ) - Diabetes type 2. Diagnosed: 2019 . Outpatient insulin use: none. Pt reported low glucose range is 115. Pt reported high glucose range is 140 . Pt reported HgA1c: 6.5. Pt reported HgA1c date: 02/05/2019. + Obesity (BMI >30) + Cancer history (Histoery of BRCA2 mutation)- s/p chemo and s/p radiation. Cancer type: 2019--LeftBreast Cancer S/p chemo (completed 08/2018 and radiation completed 02/04/2019. Hx colon cancer s/p resection 2019 . Functional Capacity Functional capacity: <4 METs Comments: States able to walk 2-3 city blocks w/ no cp or sob; able to climb 2 flights of stairs - no cp but has stable villanueva w/ effort Review of Systems + SOB (stable VILLANUEVA ) + pedal edema (Right lower extremity swelling) + easy bruising (r/t Eliquis - denies excessive bleeding ) + chronic pain + numbness/tingling (N/T in feet/toes & occ fingers w/ chemo tx ) + diaphoresis (hot flashes & night sweats ) Pertinent negatives: productive cough; wheezing; recent cold/flu; fever; chest pain; palpitations; orthopnea; PND; previous transfusion; melena/hematochezia; bleeding problems; syncope; dizziness; muscle weakness; hard of hearing; vision loss; heartburn; nausea; dysphagia; diarrhea; dentures/partials; chipped/loose teeth and no unexpected weight change Comments: Sees PCP at least q 3-4 months Mucositis since chemo tx PAT Summary and Plans Cardiac risk classification of planned procedure: low cardiac risk. Recommendations for surgical team: other (see notes below). Preoperative assessment status: complete. Initial preoperative evaluation discussed with: Herson Fraire MD Additional comments: Aleah Gerber is a 63 y.o. female who is being evaluated prior to undergoing a low cardiac risk surgery. Revised Cardiac Risk Index factors are (history of cerebrovascular disease) for a total RCRI of 1 out of 6. Functional capacity is <4 METs specifically: stable villanueva w/ climbing 2 flights of stairs. Obstructive sleep apnea (VIOLETTE) screening status is STOP-Bang=3 with bicarbonate > 27 suggesting HIGH RISK for VIOLETTE. The patient is at elevated risk for obstructive sleep apnea (VIOLETTE) per STOP-BANG screening questionnaire results. Patient informed of the possibility that they have undiagnosed VIOLETTE, which may increasetheir risk for perioperative respiratory events. Patient also informed of the possible long-term health problems associated with VIOLETTE. Because we do not feel that preoperative VIOLETTE testing is likely tooutweigh the downsides of delaying surgery, we have recommended that the patient talk to their primary doctor or other clinician after surgery about getting tested for VIOLETTE. Patient has upcoming appointment w/ corporate travel consultant in April w/ plans to discuss a sleep study. This patient has a history of VTE, is on chronic anticoagulation therapy, and is at moderate risk of recurrent VTE per 2012 ACCP criteria. > The patient is on oral anticoagulation therapy with Rivaroxaban (XARELTO) Estimated creatinineclearance is 56.4 ml/min (per 02/13/2019 BMP). For this procedure and anesthetic, our estimation ofbleeding-associated risks is that the possibility of a small amount of residual anticoagulation at the time of surgery would be acceptable. Therefore we recommend holding all doses of this anticoagulant for 2 days (48 hours) prior to the procedure. Therapeutic anticoagulation should be resumed post-operatively, typically on the day after surgery. Sent Epic Message via [employer] in surgeon's office. Please call the CPAP attending ([phone]) to revisit bleeding risk assessment, with any questions, or to discuss alternative management plans. > Epic Message to surgeon pool is query regarding whether surgeon might consider removing Port while patient on NOAC. Defer patient periop Eliquis recommendations to Dr. Bunch & team. Blood bank needs for day of procedure: No type and screen needed Pending labs/tests include: None. This assessment was performed via telephone. Therefore the physical exam has been deferred to the day of surgery team. The patient was provided with preoperative instructions for their medications. The patient was informed that instructions regarding stopping any therapeutic antiplatelet or anticoagulant medications will be provided by the surgeon's office. The patient was instructed to shower/bathe the night priorand the morning of the planned procedure using an antibacterial soap. Patient instructions were provided by telephone and in writing sent via [employer] mail. Patient verbalized understanding of preoperative plan. Preoperative evaluation performed by Lavonne Barlow NP on 03/26/19 at 7:07 PM. . Patient Active Problem List Diagnosis ??? [...] after completed treatment for malignant neoplasm ??? Personal history of malignant neoplasm of breast ??? Personal history of irradiation Past Medical History: Diagnosis Date ??? Anemia ??? Anxiety ??? Asthma ??? At risk for sleep apnea Per assessment, STOP BANG=3. Pt reports her PCP wants to do a Sleep Study in the near future. ??? Breast cancer (CMS/HCC) 2018 left breasst cancer ??? Breast cancer (CMS/HCC) 2017 ??? 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 Colon cancer (CMS/HCC) 2017 ??? Colon polyps ??? COPD (chronic obstructive pulmonary disease) (CMS/HCC) ??? COPD (chronic obstructive pulmonary disease) (CMS/HCC) ??? Depression ??? DVT (deep vein thrombosis) in 05/2017 with multiple Pulmonary Emboli ??? Former smoker Quit 2016 ??? History of blood clots ??? History of ileus 12/2017 ??? Hypercholesteremia ??? Hypertension ??? Leg swelling Right lower extremity--known DVT ??? Lower extremity edema ??? Memory loss Some short-term memory loss ??? Mucositis ??? Obesity ??? Personal history of other medical treatment [...] BIOPSY Left 11/12/2017 ??? BREAST BIOPSY Right 2009 Benign ??? BREAST LUMPECTOMY 2017 ??? COLONOSCOPY 2017 ??? HEMICOLECTOMY Left 12/27/2017 Laparoscopic left hemicolectomy ??? HYSTERECTOMY W/ BILATERAL SALPINGOOPHORECTOMY Bilateral 02/13/2019 ??? INCONTINENCE SURGERY 2007 ??? INGUINAL HERNIA REPAIR Right 1970 ??? MASTECTOMY, PARTIAL Left 01/14/2018 Biopsy Breast Needle Localization partial mastectomy (L), Biopsy [place] Lymph Node With Lymphoscintigraphy (L), Insertion Port A Cath (R) with ultrasound and fluroscopy ??? PORTACATH PLACEMENT 01/2018 right upper chest ??? PORTACATH PLACEMENT 2017 ??? TUBAL LIGATION 1991 OB History 4 Para 3 Term 2 1 AB 1 Living 2 SAB TAB Ectopic Multiple Live Births Obstetric Comments Post menopause Allergies Allergen Reactions ??? Oxaliplatin Swollen tongue Throat swelling ??? Tetanus Vaccines And Toxoid Swelling and Rash Med List Status: Nurse Complete Set By: Kandice Chairez RN at 03/20/2019 4:45 PM Taking? Last Dose Start Date End Date Provider acetaminophen (TYLENOL) 500 mg tablet Past Month -- -- Historical Provider, albuterol HFA (PROVENTIL HFA,VENTOLIN HFA,PROAIR HFA) 90 mcg/actuation inhaler More than a month ---- Historical Provider, ALPRAZolam (XANAX) 0.25 mg tablet 03/20/2019 11/07/17 -- Historical Provider, atorvastatin (LIPITOR) 20 mg tablet 03/19/2019 02/21/18 -- Historical Provider, biotin 1 mg capsule 03/20/2019 -- -- Historical Provider, cholecalciferol (VITAMIN D3) 2,000 unit capsule 03/19/2019 10/04/17 -- Historical Provider, dulaglutide (TRULICITY) 0.75 mg/0.5 mL pen injector Past Week -- -- Historical Provider, fluticasone propion-salmeterol (ADVAIR DISKUS) 250-50 mcg/dose diskus inhaler 03/20/2019 02/05/19 -- Cristobal Dong MD Inhale 1 puff 2 (two) times a day Rinse mouth with water after use. Do not swallow. hydroCHLOROthiazide (HYDRODIURIL) 12.5 mg tablet 03/19/2019 02/24/18 -- Historical Provider, magnesium oxide 400 mg magnesium capsule 03/20/2019 -- -- Historical Provider, mecobalamin, vitamin B12, 1,000 mcg tablet,disintegrating 03/20/2019 -- -- Historical Provider, potassium chloride ER (KLOR-CON,K-DUR) 10 mEq CR tablet 03/20/2019 10/01/18 10/01/19 Abbi Ventura MD Take 1 tablet/capsule (10 mEq total) by mouth 2 (two) times a day Patient taking differently: Take 10 mEq by mouth 2 (two) times a day rivaroxaban (XARELTO) 20 mg tablet 03/19/2019 06/13/18 -- Abbi Ventura MD Take 1 tablet (20 mg total) by mouth daily. Patient taking differently: Take 20 mg by mouth nightly sertraline (ZOLOFT) 50 mg tablet 03/19/2019 10/23/18 -- Historical Provider, sitaGLIPtin-metformin (JANUMET XR) 100-1,000 mg tablet, ER multiphase 24 hr 03/19/2019 -- -- Historical ProviderMD No current facility-administered medications for this encounter. Current Outpatient Medications: ??? acetaminophen (TYLENOL) 500 mg tablet ??? ALPRAZolam (XANAX) 0.25 mg tablet ??? atorvastatin (LIPITOR) 20 mg tablet ??? biotin 1 mg capsule ??? cholecalciferol (VITAMIN D3) 2,000 unit capsule ??? dulaglutide (TRULICITY) 0.75 mg/0.5 mL pen injector ??? fluticasone propion-salmeterol (ADVAIR DISKUS) 250-50 mcg/dose diskus inhaler ??? hydroCHLOROthiazide (HYDRODIURIL) 12.5 mg tablet ??? magnesium oxide 400 mg magnesium capsule ??? mecobalamin, vitamin B12, 1,000 mcg tablet,disintegrating ??? potassium chloride ER (KLOR-CON,K-DUR) 10 mEq CR tablet ??? rivaroxaban (XARELTO) 20 mg tablet ??? sertraline (ZOLOFT) 50 mg tablet ??? sitaGLIPtin-metformin (JANUMET XR) 100-1,000 mg tablet, ER multiphase 24 hr ??? albuterol HFA (PROVENTIL HFA,VENTOLIN HFA,PROAIR HFA) 90 mcg/actuation inhaler Social History Tobacco Use Smoking Status Former Smoker ??? Packs/day: 1.00 ??? Types: Cigarettes ??? Start date: 1972 ??? Last attempt to quit: 2014 ??? Years since quittin.8 Smokeless Tobacco Never Used Substance and Sexual Activity Alcohol Use Not Currently ??? Frequency: Monthly or less Comment: socially Substance and Sexual Activity Drug Use Never Family History Problem Relation Age of Onset ??? Prostate cancer Father 60 ??? Pancreatic cancer Sister 40 ??? Other (pancreatic cancer) Sister ??? Liver cancer Maternal Grandmother 80 ??? Heart attack Mother 70 ??? Heart attack Maternal Grandfather ??? Heart attack Paternal Grandmother ??? Anesthesia problems Neg Hx There were no vitals filed for this visit. Relevant diagnostics: ECG(s): 02/05/2019: EKG - NSR 82 bpm w/ possible anterior infarct; no sig change c/w previous EKGs 12/01/2018, 10/20/2018 Echocardiogram(s): 08/06/2018: TTE - LV size is normal. LVEF 65% (GLS -22%). Wall motion is normal. RV size and function are normal. Diastolic function: normal. No significant valve disease.No AR seen, No MR seen, no , no MS, trace TR, normal PV. Unable to estimate PASP due to lack of adequate TR jet. IVC is not visualized. PFT(s): 03/12/2019: Broncho Challenge - FVC = 2.67L/72% pred (pre) & 2.61L/70% pred. (post), FEV1 = 1.68L/58% pred, (pre) 1.54L/53% pred (pre) & 1.99L/69% pred. (post). IMPRESSION: Mild restrictive ventilatory defect. However, measurement of lung volumes is suggested to confirm this if clinically indicated. There is significant airways reactivity to the administration of methocholine. The PCO2 = 0.125 mg/ml Other: 10/07/2018: CXR - There are no prior chest radiographs at [facility] for comparison. A right internal jugular catheter is in place, tip overlies the superior vena cava.. The heart and mediastinal contours are normal. There is no mass or consolidation. There is no lymphadenopathy. There are no pleural effusions. There is no pneumothorax. There is old granulomatous disease. ?? 05/21/2018: Chest/Abdomen/Pelvis CT - 1. Extensive acute pulmonary embolism as described above. Right lower extremity deep vein thrombosis. 2. No evidence of metastatic disease involving chest, abdomen or pelvis. Ele index score: 100 DOS Physical Exam Medical history, medications, and allergies reviewed. Attestation: This PAT evaluation Airway Exam: Mallampati: III Cervical ROM: FROM Cardiovascular Exam: Rate: regular Rhythm: regular Pulmonary Exam: LCTA, bilat Anesthesia Plan ASA 2 My patient is approved for the Anesthesia Controlled Medication protocol when under care of a COMBINATION MACHINE TOOL OPERATOR Planned anesthesia: MAC Induction: Induction: intravenous. Postoperative Plan: Patient's planned disposition post procedure is Outpatient. Informed Consent: Discussed plan with COMBINATION MACHINE TOOL OPERATOR. Anesthesia plan and risks discussed with patient. Consent and Attending signature: I and/or my designee have discussed the anesthesia plan, benefits, possible alternatives, parental presence at time of induction (if indicated), and clinically relevant risks that may include dental injury, unintentional awareness, and/or other complications. The patient and/or parent/legal guardian understand, and agree to proceed. All questions answered. ONAL CONSULTANT ONAL CONSULTANT ONAL CONSULTANT documented in this encounter Plan of Treatment Not on file documented as of this encounter Visit Diagnoses Not on filedocumented in this encounter Administered Medications Inactive Administered Medications - up to 3 most recent administrations Medication Order MAR Action Action Date Dose Rate Site ceFAZolin (ANCEF) injection intravenous, As needed, Starting on Bonnie 04/09/19 at 0828, Anesthesia Intra-op Given 04/09/2019 8:28 AM PERSONAL CONSULTANT 2,000 mg dexAMETHasone (DECADRON) 4 mg/mL injection Administer over 2 Minutes, As needed, Starting on Bonnie 04/09/19 at 0831, Anesthesia Intra-op Given 04/09/2019 8:31 AM PERSONAL CONSULTANT 4 mg famotidine (PEPCID) injection Administer over 2 Minutes, As needed, Starting on Bonnie 04/09/19 at 0831, Anesthesia Intra-op Given 04/09/2019 8:31 AM PERSONAL CONSULTANT 20 mg fentaNYL (SUBLIMAZE) preservative free injection intravenous, As needed, Starting on Bonnie 04/09/19 at 0828, Anesthesia Intra-op Given 04/09/2019 8:44 AM PERSONAL CONSULTANT 25 mcg Given 04/09/2019 8:28 AM PERSONAL CONSULTANT 25 mcg Lactated Ringer's (LR) infusion 30 mL/hr, intravenous, Continuous, Starting on Bonnie 04/09/19 at 0715, Pre-Op New Bag 04/09/2019 7:00 AM PERSONAL CONSULTANT 50 mL/hr lidocaine PF (XYLOCAINE) 10 mg/mL (1 %) preservative free injection As needed, Starting on Bonnie 04/09/19 at 0834, Anesthesia Intra-op Given 04/09/2019 8:34 AM PERSONAL CONSULTANT 50 mg midazolam (VERSED) preservative free injection intravenous, Administer over 2 Minutes, As needed, Starting on Bonnie 04/09/19 at 0819, Anesthesia Intra-op Given 04/09/2019 8:44 AM PERSONAL CONSULTANT 1 mg Given 04/09/2019 8:19 AM PERSONAL CONSULTANT 2 mg ondansetron (ZOFRAN) injection Administer over 2 Minutes, As needed, Starting on Bonnie 12 at 0831, Anesthesia Intra-op Given 04/09/2019 8:31 AM PERSONAL CONSULTANT 4 mg propofol (DIPRIVAN) IV intravenous, As needed, Starting on Bonnie 04/09/19 at 0834, Anesthesia Intra-op Given 04/09/2019 8:34 AM PERSONAL CONSULTANT 100 mg propofol (DIPRIVAN) IV intravenous, Continuous PRN, Starting on Bonnie 04/09/19 at 0834, Anesthesia Intra-op Rate/Dose Change 04/09/2019 8:44 AM PERSONAL CONSULTANT 140 mcg/kg/min 88.96 mL/hr New Bag 04/09/2019 8:34 AM PERSONAL CONSULTANT 130 mcg/kg/min 82.6 mL/h r documented in this encounter Care Teams Car Hopper Relationship Specialty Start Date End Date Ravi Smith MD PCP - General 11/04/17 09/27/21 Aft, Kianna Machado MD PhD [address] [place] [address] Surgeon Surgical Oncology 11/22/17 Santiago Gilbert MD [address] [place] [address] Budget Clerk Gastroenterology 11/22/17 Dmitry Sanderson MD [address] [place] [address] Referring Physician Colon and Rectal Surgery 12/03/1805/06 Abbi Ventura MD [address] [place] [address] Medical Oncologist/Telephone Sex Worker Medical Oncology 12/03/18 Montse Thompson MD [address] [place], [place] [id number] Consulting Physician Gynecologic Oncology 12/03/18 Lela Hardy MD PhD [address] [place] [address] Radiation Oncologist Radiation Oncology 12/23/18 Aft, Kianna Machado MD PhD [address] [facility] [address] [place] [address] Surgeon Surgical Oncology 12/23/18 09/17/21 documented as of this encounter
--- OUTSIDE RECORDS SUMMARY | 2024-04-24 13:43 | XMS_ITS | Encounter Summary ---
Author Organization [facility] Address [address] [place] [address] Phone Care Team Providers Care Mold Filler And Drainer Name Role Phone Ravi Smith MD Primary Care Provider [phone] Aft, Kianna Machado MD PhD Unavailable [phone] Santiago Gilbert MD Unavailable [phone] Dmitry Sanderson MD Unavailable [phone] Abbi Ventura MD Unavailable Montse Thompson MD Unavailable [phone] Lela Hardy MD PhD Unavailable [phone] Aft, Kianna Machado MD PhD Unavailable [phone] Encounter Details Date Type Department Care Team (Late st Contact Info) Description 06/05/2019 Telephone [facility] Pulmonary [address] [facility] Advanced Medicine 8th [place] [address] [place] [address] Mary Garcia MD [address] [place] [address] Social History Tobacco Use Types [...] file Legal Sex Female 1:06 AM MEDICAL RECORDS SUPERVISOR Gender Identity Not on file Sexual Orientation Not on file documented as of this encounter Miscellaneous Notes * Telephone Encounter - Mary Garcia MD - 06/05/2019 2:17 PM CST D/w pt that sleep study showed mild VIOLETTE. Discussed APAP v. Oral appliance. Will order APAP and haveher f/u in 2-3 months. CAL RECORDS SUPERVISOR documented in this encounter Plan of Treatment Not on file documented as of this encounter Visit Diagnoses Diagnosis Obstructive sleep apnea- Primary Obstructive sleep apnea (adult) (pediatric) documented in this encounter Care Teams Mold Filler And Drainer Relationship Specialty Start Date End Date Ravi Smith MD PCP - General 11/04/17 09/27/21 Aft, Kianna Machado MD PhD [address] [place] [address] Surgeon Surgical Oncology 11/22/17 Santiago Gilbert MD [address] [place] [address] Dining Manager Gastroenterology 11/22/17 Dmitry Sanderson MD [address] [place] [address] Referring Physician Colon and Rectal Surgery 12/03/1805/06 Abbi Ventura MD [address] [place] [address] [address] [place] [address] Medical Oncologist/Sports Medicine Trainer Medical Oncology 12/03/18 Montse Thompson MD [address] [facility] [address] [place] [address] Consulting Physician Gynecologic Oncology 12/03/18 Lela Hardy MD PhD [address] [place] [address] [address] [place] [address] Radiation Oncologist Radiation Oncology 12/23/18 Aft, Kianna Machado MD PhD [address] [place] [address] [address] [place] [address] Surgeon Surgical Oncology 12/23/18 09/17/21 documented as of this encounter
--- OUTSIDE RECORDS SUMMARY | 2024-04-24 13:43 | XMS_ITS | Encounter Summary ---
Author Organization [facility] Address [address] [place] [address] Care Team Providers Care Dredge Mechanic Name Role Phone Ravi Smith MD Primary Care Provider [phone] Aft, Kianna Machado MD PhD Unavailable [phone] Santiago Gilbert MD Unavailable [phone] Dmitry Sanderson MD Unavailable [phone] Abbi Ventura MD Unavailable Montse Thompson MD Unavailable [phone] Lela Hardy MD PhD Unavailable [phone] Aft, Kianna Machado MD PhD Unavailable Encounter Details Date Type Department Care Team (Late st Contact Info) Description 03/18/2019 1:40 PM QUALITY ASSURANCE INSPECTOR Office Visit [facility] Radiation Oncology at [facility] [address] [place] [address] Nasreen Hagan, FILM WASHER [address] [facility] [address] [place] [address] Encounter for follow-up examination after completed treatment for malignant neoplasm (Primary Dx); Personal history of malignant neoplasm of breast; Personal history of irradiation Social History Tobacco [...] Legal Sex Female 1:06 AM QUALITY ASSURANCE INSPECTOR Gender Identity Not on file Sexual Orientation Not on file documented as of this encounter Last Filed Vital Signs Vital Sign Reading Time Taken Comments Blood Pressure 127/82 03/18/2019 1:52 PM QUALITY ASSURANCE INSPECTOR Pulse 88 03/18/2019 1:52 PM QUALITY ASSURANCE INSPECTOR Temperature 37.1 ??C (98.8 ??F) 03/18/2019 1:52 PM CS T Respiratory Rate - - Oxygen Saturation - - Inhaled Oxygen Concentration - - Weight 106.9 kg (235 lb 11.2 oz) 03/18/2019 1:43 PM QUALITY ASSURANCE INSPECTOR Height - - Body Mass Index 34.79 03/02/2019 4:41 PM CDT documented in this encounter Patient Instructions * Patient Instructions* Nasreen Hagan NP - 03/18/2019 1:40 PM QUALITY ASSURANCE INSPECTOR There is no clinical evidence of recurrent or metastatic disease on exam today. Continue your breast self exams on a monthly basis. You have the information for [facility] if you feel that you need in the future. Please don't hesitate to call for any referrals or concerns. Please continue to apply VaniCream or [place] Butter daily to the treated breast. Avoid sun exposure and use sunscreen or protective garments to protect the treated area from sunlight to minimize a skin reaction. I will see you for follow up in 6 months. Follow up with medical and surgical oncology as previously arranged. Please call with any questions or concerns in the meantime. ITY ASSURANCE INSPECTOR documented in this encounter Progress Notes * Nasreen Hagan NP - 03/18/2019 1:40 PM CST Radiation Oncologist: Lela Hardy MD PhD Primary Care Physician: Ravi Smith MD Medical Oncologist: Abbi Ventura MD Surgeon: Kianna Bunch MD PhD Referring Physician: Patient Care Team: Dmitry Sanderson MD as Referring Physician (Colon and Rectal Surgery) Kianna Bunch MD PhD as Referring Physician (Surgical Oncology) Date of Service: 03/18/2019 RADIATION ONCOLOGY FOLLOW UP NOTE IDENTIFYING DATA: [...] completed treatment for malignant neoplasm Yes ??? Personal history of malignant neoplasm of breast ??? 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 She presents today for six week evaluation. INTERVAL HISTORY Since Ms Gerber completed radiation on 02/04/19, she has not been feeling too well. She underwent a OCTAVIO-BSO in February and feels a little depressed. She has contraction-like spasms in the abdomen that are bothersome. She also has intermittent diarrhea. She feels that her mouth is developing machine tender with bottle-cap tongue since the chemo. This is not affecting her PO intake but it is tender. She has tried MMW and salt water rinses. In regards to the radiation, she feels that she tolerated it well but did have some minor skin peeling. She is still applying VaniCream to the left breast. She has notnoted any new nodules, masses or adenopathy and denies shortness of breath or cough. PAST MEDICAL, SURGICAL, FAMILY, AND SOCIAL HISTORY History Last Reviewed by Nasreen Hagan NP on 03/18/2019 at 3:33 PM Sections Reviewed Medical, Surgical, Family, Tobacco, Socioeconomic ALLERGIES: Allergies as of 03/18/2019 Reviewed by You at 3:33 PM Severity Noted Reaction Type Reactions Oxaliplatin High 04/23/2018 Infusion Reaction Swollen tongue Throat swelling Tetanus Vaccines And Toxoid Medium 11/12/2017 Swelling, Rash MEDICATIONS: Review Info User Date and Time NASREEN HAGAN NP [[id number]] 03/18/2019 3:33 PM REVIEW OF SYSTEM Review of Systems [...] endocrine, hematologic/lymphatic, or immunologic systems. PHYSICAL EXAMINATION: BP 127/82 Pulse 88 Temp 37.1 ??C (98.8 ??F) Wt 106.9 kg (235 lb 11.2 oz) BMI 34.79 kg/m?? There were no vitals filed for this visit. Physical Exam Zubrod: 0. Pain 0/10. General: Alert, cooperative female, in no apparent distress. Neck: Supple. No cervical, supraclavicular or infraclavicular lymphadenopathy bilaterally. ENT: oral mucosa pink and moist without distinct ulceration. Perimeter of tongue has bottle cap appearance. Breasts: Exam performed seated in sitting and supine position. Right breast: Normal to inspection and palpation. There are no suspicious skin changes and no palpable masses. Left breast: Normal to inspection and palpation. There are no suspicious skin changes and no palpable masses. Surgical incision is well healed with palpable fibrosis. There is hyperpigmentation present over the whole breast. There is mild dependent edema. Axillae: There is no lymphadenopathy bilaterally. Cardiac: Regular rate and rhythm, no murmurs, gallops, or rubs. Pulmonary: Clear to auscultation bilaterally. Abdomen: Midline abdominal incision well healed. LUQ laporascopic incision well healed. Soft, nontender, nondistended, with no hepatosplenomegaly. Spine: No tenderness to palpation of the spine. Extremities: No cyanosis or edema. KPS 80 DIAGNOSTIC REPORTS REVIEWED: Imaging: no new data for review. Laboratory/Pathology: I personally reviewed the laboratory and pathology values and labs collected 02/13/19 reviewed. Surgical Pathology at [facility] on 02/13/19, accession #[id number]: Uterus, cervix, bilateral tubes and ovaries, total hysterectomy and salpingo-oophorectomy ? 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 Ms Gerber is 6 weeks post radiation with noclinical evidence of recurrent or metastatic disease. I have reassured her that the sudden shift in her hormones following her OCTAVIO-BSO could be contributing to her emotional state. I encouraged her to utilize [facility], which she already has the information. I have also reassured Ms Gerber that it may take time to heal from her abdominal surgery, which is the second in a year's time. I have encouraged her to touch base with Dr Ventura regarding the oral mucosa tenderness and bottle-cap tongue. RAD ONC PAIN PLAN: The patient is [...] Dr. Lela Hardy. Lela Hardy MD, PhD Mobile Tester Department of Radiation Oncology Cosigned by Lela Hardy MD PhD at 03/30/2019 11:02 AM QUALITY ASSURANCE INSPECTOR ITY ASSURANCE INSPECTOR ITY ASSURANCE INSPECTOR documented in this encounter Plan of Treatment Not on file documented as of this encounter Visit Diagnoses Diagnosis Encounter for follow-up examination after completed treatment for malignant neoplasm- Primary Personal history of malignant neoplasm of breast Personal history of irradiation Personal history of irradiation, presenting hazards to health documented in this encounter Historical Medications * This list may reflect changes made after this encounter. mecobalamin, vitamin B12, 1,000 mcg tablet,disintegra ting Place under the tongue every morning 09/29/2020 added in this encounter Care Teams Dredge Mechanic Relationship Specialty Start Date End Date Ravi Smith MD PCP - General 11/04/17 09/27/21 Aft, Kianna Machado MD PhD [address] [place] [address] Surgeon Surgical Oncology 11/22/17 Santiago Gilbert MD [address] [place] [address] Fireworks Assembler Gastroenterology 11/22/17 Dmitry Sanderson MD [address] [place] [address] Referring Physician Colon and Rectal Surgery 12/03/1805/06 Abbi Ventura MD [address] [place] [address] [address] [place] [address] Medical Oncologist/Human Resources Services Specialist Medical Oncology 12/03/18 Montse Thompson MD [address] [facility] [address] [place] [address] Consulting Physician Gynecologic Oncology 12/03/18 Lela Hardy MD PhD [address] [facility] [address] [place] [address] Radiation Oncologist Radiation Oncology 12/23/18 Aft, Kianna Machado MD PhD [address] [place] [address] Surgeon Surgical Oncology 12/23/18 09/17/21 documented as of this encounter
--- OUTSIDE RECORDS SUMMARY | 2024-04-24 13:43 | XMS_ITS | Encounter Summary ---
Author Organization [facility] Healthcare Address [address] [place] [address] Care Team Providers Care Obstetrician Gynecologist Name Role Phone Ravi Smith MD Primary Care Provider [phone] Aft, Kianna Machado MD PhD Unavailable [phone] Santiago Gilbert MD Unavailable [phone] Dmitry Sanderson MD Unavailable [phone] Abbi Ventura MD Unavailable Montse Thompson MD Unavailable Lela Hardy MD PhD Unavailable [phone] Aft, Kianna Machado MD PhD Unavailable [phone] Encounter Details Date Type Department Care Team (Latest Contact Info) Description 02/13/2019 5:03 AM CDT - 02/14/2019 11:58 AM CDT Hospital Encounter [facility] [address] [place] [address] Montse Thompson MD [address] [facility] [phone] [place] [address] Malignant neoplasm of upper-inner quadrant of left breast in female, 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); BRCA2 gene mutation positive in female Discharge [...] on file 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 Gender Identity Not on file Sexual Orientation Not on file documented as of this encounter Last Filed Vital Signs Vital Sign Reading Time Taken Comments Blood Pressure 117/43 02/14/2019 8:02 AM CDT Pulse 66 02/14/2019 8:02 AM CDT Temperature 36.8 ??C (98.2 ??F) 02/14/2019 8:02 AM CD T Respiratory Rate 18 02/14/2019 8:02 AM CDT Oxygen Saturation 96% 02/14/2019 8:02 AM CDT Inhaled Oxygen Concentration - - Weight 106.6 kg (235 lb) 02/13/2019 1:15 PM CDT Height 175.3 cm (5' 9 ) 02/13/2019 1:15 PM CDT Body Mass Index 34.7 02/13/2019 1:15 PM CDT documented in this encounter Discharge Diagnoses Diagnosis Malignant neoplasm of unspecified site of left female breast (HCC) - MALIGNANT NEOPLASM OF UNSPECIFIED SITE OF LEFT FEMALE BREAST Malignant neoplasm of left ovary (HCC) - MALIGNANT NEOPLASM OF LEFT OVARY Genetic susceptibility to malignant neoplasm of breast - GENETIC SUSCEPTIBILITY TO MALIGNANT NEOPLASM OF BREAST Major depressive disorder, single episode, unspecified - MAJOR DEPRESSIVE DISORDER, SINGLE EPISODE, UNSPECIFIED Diarrhea, unspecified - DIARRHEA, UNSPECIFIED Personal history of other malignant neoplasm of large intestine - PERSONAL HISTORY OF OTHER MALIGNANT NEOPLASM OF LARGE INTESTINE Personal history of nicotine dependence - PERSONAL HISTORY OF NICOTINE DEPENDENCE Personal history of transient ischemic attack (TIA), and cerebral infarction without residual deficits - PERSONAL HISTORY OF TRANSIENT ISCHEMIC ATTACK (TIA), 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 Other custodial (current) drug therapy - OTHER CARE HOME (CURRENT) DRUG THERAPY residential (current) use of anticoagulants - CARE HOME (CURRENT) USE OF ANTICOAGULANTS Long-term (current) use of anticoagulants residential (current) use of oral hypoglycemic drugs - CARE HOME (CURRENT) USE OF ORAL HYPOGLYCEMIC DRUGS Anxiety disorder, unspecified - ANXIETY DISORDER, UNSPECIFIED Type 2 diabetes mellitus without complications (CMS/HCC) (HCC) - TYPE 2 DIABETES MELLITUS WITHOUT COMPLICATIONS Obesity, unspecified - OBESITY, UNSPECIFIED Pure hypercholesterolemia, unspecified - PURE HYPERCHOLESTEROLEMIA, UNSPECIFIED Essential (primary) hypertension - ESSENTIAL (PRIMARY) HYPERTENSION Unspecified essential hypertension Chronic obstructive pulmonary disease, unspecified (HCC) - CHRONIC OBSTRUCTIVE PULMONARY DISEASE, UNSPECIFIED Personal history of pulmonary embolism - PERSONAL HISTORY OF PULMONARY EMBOLISM Personal history of other venous thrombosis and embolism - PERSONAL HISTORY OF OTHER VENOUS THROMBOSIS AND EMBOLISM documented in this encounter Discharge Summaries * Wade Jewell MD - 02/14/2019 7:33 AM CDT Inpatient Discharge Summary BRIEF OVERVIEW Admitting Provider: Montse Thompson MD Discharge Provider: Montse Thompson MD Primary Care Physician at Discharge: Ravi Smith MD [phone] Admission Date: 02/13/2019 Discharge Date: 02/14/2019 Admission Location: [facility] Primary Discharge Diagnosis: BRCA2+ mutation Secondary Discharge Diagnosis: BRCA2 gene mutation positive in female Malignant neoplasm of upper-inner quadrant of left breast in female, 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) DETAILS OF HOSPITAL STAY Presenting Problem/History of Present Illness: Ms. Gerber is a gaviota 63-year-old female, [...] allergic reaction to oxaliplatin during cycle #6. ??The patient also required dose reduction. ??She completed all of her chemotherapy, per her report, of FOLFOX on 05/21/2018. ??Thepatient now has been on AC chemotherapy for breast cancer, which was started on 06/25/2018, and shebelieves that she completed her last cycle about 8 weeks ago.??The patient is scheduled with Dr. Bunch for [...] rare atypical glandular cells, which are NOS. ??It is HPV negative. ??Of note, the patient does have a remote history of cryotherapy. ??The patient has not had routine Pap smears, however. ?? The patient's pathology from 10/27/2018 showed that the 12 o'clock biopsy had no histopathologic abnormality. ??The ECC just showed some microglandular hyperplasia and squamous metaplasia. ??The endometrial biopsy was scant, but there was inactive endometrium. ??The patient did have an ultrasound performed on 10/31/2018 which showed she had a normal transabdominal and transvaginal sonogram of theuterus. ??It did show that both ovaries were unremarkable. ??Her uterus measured 4.3 x 2.7 x 2.5 cmwith an endometrial stripe of 3 mm. ?? In the interim, the patient also has had a re-excision of a breast biopsy cavity on 11/11/[address] Aft. ??The pathology from this demonstrates no evidence of residual invasive carcinoma and onlyshowed an incidental intraductal papilloma. ?? The patient overall feels well. ??She does complain of some fatigue. ??She has some mild changes invision. ??She has shortness of breath with exertion. ??She also complains of diarrhea, depression, and mood changes and hot flashes. ??Otherwise, she denies any pelvic pain, pelvic pressure, vaginal bleeding, vaginal discharge. Hospital Course: Patient underwent an uncomplicated RATLH/BSO/cystoscopy for risk reduction in setting of BRCA2+ andwas subsequently admitted for routine postoperative care. 1) Infectious disease - The patient received IV Ancef prior to skin incision. The patient was afebrile and had no other signs or symptoms of infection throughout her hospital course. 2) Heme - The patient had an estimated blood loss of 20 mL. Her hemoglobin preoperatively was 11.0 and subsequently found to be 9.6 on postoperative day #1. Patient had no signs or symptoms of acute blood loss anemia. 3) Cardiovascular/Pulmonary - The patient's vital signs were stable throughout her admission. She was weaned to room air on postoperative day #0 and was encouraged to use her incentive spirometer q1hr while awake. She has a history of hypertension controlled with hydrochlorothiazide; her BP was within normal limits and did not require treatment. She was discharged with instructions to restart herhome medications. Home atorvastatin was held during admission. Albuterol was continued. 4) Gastrointestinal/Genitourinary - The patient was advanced to a regular diet on the evening of surgery, which she tolerated well. Patient was initiated on a bowel regimen postoperatively and sent home with a prescription for Colace. Patient passed her VT on POD #0 and was voiding spontaneously prior to discharge. 5) Neurologic- Patient's pain was initially controlled with IV toradol and PO oxycodone. On POD #1 she was transitioned to a regimen on tylenol, ibuprofen, gabapentin, and oxycodone. Patient pain wasadequately controlled upon discharge and she was discharged home with prescriptions for her pain medications. 6) Prophylaxis- Patient had sequential compression devices placed prior to surgery and were maintained throughout her admission. The patient has a history of venous thromboembolism and her home xarelto was held 72h prior to surgery and continued throughout her admission. 7) Psych- She has a history of anxiety/depression. Her home sertraline was continued, and home xanax was held. 8) Endo- She has a history of T2DM (non-insulin dependant) managed with dulaglutide and sitagliptin-metformin at home. These medications were held during admission. She did not require insulin to control blood sugars throughout her admission. She was discharged with instructions to restart her home medications. Active Issues Requiring Follow-up: None Test Results Pending at Discharge: Order Current Status Surgical pathology Collected (02/13/19 1002) Cytology In process Surgical pathology In process Operative Procedures Performed: Procedure(s): Diagnostic Laparoscopy Si Robotic Assisted Total Laparoscopic Hysterectomy Si Robotic Assisted Laparoscopic Salpingo Oophorectomy Cystoscopy Other Procedures: None Pertinent Test Results: None Discharge Details Physical Exam at Discharge: Discharge Condition: stable Pulse: 74 Resp: 16 BP: 133/49 Temp: 98.2 ??F Weight: 235 lb (106.6 kg) Pertinent Exam Findings at Discharge: See most recent daily progress notes. Discharge Disposition: Discharge to home or self care Code Status at Discharge: FULL CODE Discharge Instructions: See AVS. Discharge Medications: Current Medications TAKE these medications acetaminophen 500 mg tablet Commonly known as: TYLENOL Take 1,000 mg by mouth every 6 (six) hours as needed for pain albuterol HFA 90 mcg/actuation inhaler Commonly known as: PROVENTIL HFA,VENTOLIN HFA,PROAIR HFA Inhale 2 puffs every 6 (six) hours as needed for wheezing ALPRAZolam 0.25 mg tablet Commonly known as: XANAX Take 0.25 mg by mouth 3 (three) times a day as needed for anxiety atorvastatin 20 mg tablet Commonly known as: LIPITOR Take 20 mg by mouth nightly biotin 1 mg capsule Take 1 tablet by mouth every morning desoximetasone 0.25 % cream Commonly known as: TOPICORT Apply to affected area every night prior to vanicream docusate sodium 100 mg capsule Commonly known as: COLACE Take 1 capsule (100 mg total) by mouth 2 (two) times a day dulaglutide 0.75 mg/0.5 mL pen injector Commonly known as: TRULICITY Inject 0.75 mg under the skin every 7 days Saturday or fluticasone propion-salmeterol 250-50 mcg/dose diskus inhaler Commonly known as: ADVAIR DISKUS Inhale 1 puff 2 (two) times a day Rinse mouth with water after use. Do not swallow. hydroCHLOROthiazide 12.5 mg tablet Commonly known as: HYDRODIURIL Take 12.5 mg by mouth nightly ibuprofen 600 mg tablet Commonly known as: ADVIL,MOTRIN Take 1 tablet (600 mg total) by mouth every 6 (six) hours JANUMET XR 100-1,000 mg tablet, ER multiphase 24 hr Generic drug: SITagliptin-metformin Take 1 tablet by mouth daily with dinner LORazepam 0.5 mg tablet Commonly known as: ATIVAN Take 1 tablet (0.5 mg total) by mouth daily Take one tablet one hour prior to radiation treatments daily. magnesium oxide 400 mg magnesium capsule Take 1 tablet by mouth 2 (two) times a day oxyCODONE 5 mg immediate release tablet Commonly known as: ROXICODONE Take 1 tablet (5 mg total) by mouth every 4 (four) hours as needed for pain potassium chloride ER 10 mEq CR tablet Commonly known as: KLOR-CON Take 1 tablet/capsule (10 mEq total) by mouth 2 (two) times a day rivaroxaban 20 mg tablet Commonly known as: XARELTO Take 1 tablet (20 mg total) by mouth daily. sertraline 50 mg tablet Commonly known as: ZOLOFT Take 50 mg by mouth nightly VITAMIN D3 2,000 unit capsule Generic drug: cholecalciferol Take 2,000 Units by mouth nightly Outpatient Follow-Up: Future Appointments Date Time Provider Department Center 03/02/2019 4:10 PM Montse Thompson MD ONC CAM 13C OB 03/12/2019 8:45 AM PFT 2 CAM 8D PFT CAM 8D [facility] Pul[facility] 03/18/2019 1:40 PM Zulema Dior NP [facility] 04/01/2019 2:30 PM LAB, SC ONC ONC LAB SC [facility] ONC LAB 04/01/2019 3:00 PM Abbi Ventura MD ONC SC [facility] Oncology 04/27/2019 2:30 PM Mary Garcia MD PUL CTR 40 [facility] Pulmonary 06/04/2019 9:30 AM Jessica Swanson, BLAYNE ONC CAM 5F BOND 06/04/2019 11:20 AM [facility] BCT3 [facility] N CT [facility] Main IMG 08/18/2019 12:15 PM PFT 7 CAM 8D PFT CAM 8D [facility] Pulmonary 08/18/2019 2:00 PM Cristobal Dong MD PUL CAM 8B [facility] Pulmonary Cosigned by Montse Thompson MD at 02/17/2019 9:06 AM CDT documented in this encounter Discharge Instructions * Discharge Instructions* Wade Jewell MD - 02/14/2019 7:33 AM CDT Discharge Instructions Call Your Doctor If: * You have a fever more than 101 degrees. * You have nausea and vomiting. * You do not have a bowel movement for 3 days. * You have a hard time breathing or pain in your chest. * Your pain medication is not helping your pain. * You have foul smelling drainage from your vagina or incision. * You are bleeding more than you do during your regular period. Diet: * You may eat all the foods you ate before surgery. * Drink at least 8-10 cups of water a day. * Avoid alcohol and caffeine. Activity: * Do NOT drive for 1 week or longer if you are taking narcotic pain medication. * Do NOT place anything in the vagina for 6 weeks or until the doctor says it???s OK. (No tampons, douching or sexual intercourse.) * It is normal to have vaginal dryness after surgery. When you return to having sexual intercourse,you may need to use water-soluble lubricant in your vagina, such as K-Y Jelly. Longer foreplay may also help. * Do NOT lift objects over 10 pounds for 1 week. * No strenuous activity for 2 weeks * It is OK to slowly climb stairs. * Staying active is very important to keep your bowels moving and improving circulation. * Take short walks every day. Care Instructions: * You may shower. Let the water run over your incision. Pat wounds dry with a clean towel. Do not rub. * No tub baths or soaking until your doctor says it is OK. * Keep incision clean and dry between showers. * You may have paper strips over your wound. It is OK to shower but do NOT scrub them. The paper strips will fall off in about 1 week. If they don???t fall off on their own you may remove them. Normal Changes After Surgery: * You may feel puffy and bloated for 1-2 weeks. * You may have some bruising on your belly. * You may have bleeding and discharge from your vagina for up to 6 weeks. * You may have mild shoulder pain from gas used during your surgery; this will get better with time. Follow Up: * It is important that you keep your follow up appointment. * If you need to change it, please call the office to reschedule. documented in this encounter Medications at Time of Discharge ALPRAZolam (XANAX) 0.25 mg tablet Take 1 tablet (0.25 mg total) by mouth 3 (three) times a day as needed for anxiety 11/07/2017 ibuprofen (ADVIL,MOTRIN) 600 mg tabletIndication s:Pain Take 1 tablet (600 mg total) by mouth every 6 (six) hours 45 tablet 1 02/14/2019 9 acetaminophen (TYLENOL) 500 mg tablet Take 1,000 [...] nightly 10/04/2017 0 desoximetasone (TOPICORT) 0.25 % creamIndications :Malignant neoplasm of upper-inner quadrant of left breast in female, estrogen receptor negative (HCC) Apply to affected area every night prior to vanicream 60 g 2 01/07/2019 9 docusate sodium (COLACE) 100 mg capsuleIndicatio ns:constipation, Stool Softener Take 1 capsule (100 mg total) by mouth 2 (two) times a day 60 capsule 1 02/14/2019 9 dulaglutide (TRULICITY) 0.75 mg/0.5 mL pen injectorIndicati ons:type 2 diabetes mellitus,saturday Inject 0.75 mg under the skin every 7 days Saturday 1 fluticasone propion-salmeter ol (ADVAIR DISKUS) 250-50 mcg/dose diskus inhaler Inhale 1 puff 2 (two) times a day Rinse mouth with water after use. Do not swallow. 1 each 5 02/05/2019 0 hydroCHLOROthiaz frederick (HYDRODIURIL) 12.5 mg tabletIndication s:hypertension Take 12.5 mg by mouth every morning 0 02/24/2018 2 LORazepam (ATIVAN) 0.5 mg tabletIndication s:Mali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 15 tablet 01/14/2019 9 magnesium oxide 400 mg magnesium capsuleIndicatio ns:hypomagnesemi a Take 1 tablet by mouth 2 (two) times a day 0 oxyCODONE (ROXICODONE) 5 mg immediate release tabletIndication s:Pain Take 1 tablet (5 mg total) by mouth every 4 (four) hours as needed for pain 10 tablet 02/14/2019 9 potassium chloride ER (KLOR-CON,K-DUR) 10 mEq CR tablet Take 1 tablet/capsule (10 mEq total) by mouth 2 (two) times a day 60 tablet/capsule 6 10/01/2018 9 rivaroxaban (XARELTO) 20 mg tabletIndication s:Prevention of Recurrent Venous Thrombosis in Malignancy Take 1 tablet (20 mg total) by mouth daily. 30 tablet 6 06/13/2018 9 sertraline (ZOLOFT) 50 mg tabletIndication s:Anxiety with Depression Take 50 mg by mouth nightly 3 10/23/2018 0 sitaGLIPtin-metf ormin (JANUMET XR) 100-1,000 mg tablet, ER multiphase 24 hrIndications:ty pe 2 diabetes mellitus Take 1 tablet by mouth daily with dinner 1 documented as of this encounter Ordered Prescriptions Prescription Sig Dispense Quantity Refills Last Filled Start Date End Date ibuprofen (ADVIL,MOTRIN) 600 mg tabletIndications: Pain Take 1 tablet (600 mg total) by mouth every 6 (six) hours 45 tablet 1 02/14/2019 9 docusate sodium (COLACE) 100 mg capsuleIndications :constipation,Stoo l Softener Take 1 capsule (100 mg total) by mouth 2 (two) times a day 60 capsule 1 02/14/2019 9 oxyCODONE (ROXICODONE) 5 mg immediate release tabletIndications: Pain Take 1 tablet (5 mg total) by mouth every 4 (four) hours as needed for pain 10 tablet 02/14/2019 9 ibuprofen (ADVIL,MOTRIN) 600 mg tabletIndications: Pain Take 1 tablet (600 mg total) by mouth every 6 (six) hours 45 tablet 1 02/14/2019 9 docusate sodium (COLACE) 100 mg capsuleIndications :constipation,Stoo l Softener Take 1 capsule (100 mg total) by mouth 2 (two) times a day 60 capsule 1 02/14/2019 9 documented in this encounter Discharge Disposition Disposition Code Departure Means Destination Discharge to home or self care documented in this encounter Progress Notes * Wade Jewell MD - 02/14/2019 6:30 AM CDT [facility] MATERIAL DISPATCHER Oncology Post -Op note Subjective 63 y.o. POD#1 s/p RATLH/BSO/Cysto for risk reduction in setting of BRCA2+ Interval History: No acute events overnight. Ms. Gerber is doing well this morning. Sitting up comfortably in bed. No nausea or vomiting. Tolerating a regular diet. Flatus: Yes; no bowel movement yet Pain: Pain well controlled with PO pain meds. Notes 1/10 pain on oral acetaminophen and ibuprofen in bed. 3/10 pain with movement. Ambulating independently Objective Vitals: 24hr Min/Max: Temp Min: 36.4 ??C (97.5 ??F) Max: 36.8 ??C (98.2 ??F) Pulse Min: 64 Max: 78 BP Min: 94/49 Max: 155/73 Resp Min: 11 Max: 18 SpO2 Min: 92 % Max: 100 % Intake/Output Intake/Output Summary (Last 24 hours) at 02/14/2019 0630 Last data filed at 02/14/2019 0340 Gross per 24 hour Intake 2050 ml Output 1500 ml Net 550 ml UOP: 450/775/250 (1475/24hrs, 0.6ml/kg/hr) Physical Exam: General: NAD, mood appropriate Pulmonary: non-labored, CTAB Cardiovascular: Regular rate and rhythm Abdomen: Soft, appropriately tender to palpation, nondistended; normoactive bowel sounds Incision: Abdominal port sites are clean, dry, and intact x6 Drains: none Extremities: Lower extremities warm, well prefused; without edema and SCDs in place Lab/Radiology/Diagnostic Review Recent Labs Lab Units 02/13/19 2042 02/13/19 1115 02/13/19 1039 SODIUM mmol/L 138 -- -- POTASSIUM PLASMA mmol/L 3.9 -- -- CHLORIDE mmol/L 103 -- -- CO2 mmol/L 26 -- -- ANIONGAP mmol/L 9 -- -- GLUCOSE mg/dL 140 -- -- POC GLUCOSE MONITOR mg/dL -- 128 163 BUN SERUM mg/dL 18 -- -- CREATININE mg/dL 1.17* -- -- CALCIUM mg/dL 8.7 -- -- Recent Labs Lab Units 02/13/19 2042 WBC K/cumm 9.4 HEMOGLOBIN g/dL 9.6* HEMATOCRIT % 29.5* PLATELETS K/cumm 136* Recent Labs Lab Units 02/13/192041 MAGNESIUM mg/dL 1.8 Lab Results Component Value Date PHOS 3.6 02/13/2019 Surgical pathology: pending Surgical cytology: Pelvic washout pending Assessment and Plan -ID: Afebrile, no signs or symptoms of infection. -Heme: EBL 20cc Pre-op HgB 11.0-->9.6. Hemoglobin stable without signs or symptoms of acute blood loss anemia -CV/Pulm: Vital signs stable. On RA, encourage IS. HTN: hold patient's HCTZ and statin. Asthma: Continue home fluticasone-salmeterol. Encourage IS. Has not needed albuterol. -GI: Tolerating regular diet without nausea or vomiting. Continue bowel regimen. Passing gas. -: Voiding spontaneously. Pre-op creatinine 1.16-->1.17; likely CKD stage ~3 (2/2 HTN and T2DM). -Endo: Hx of non-insulin dependent T2DM. BG 115 - 163 without insulin inpatient. Restart home dulaglutide and sitagliptin-metformin at d/c. -Psych: Hx of anxiety/depression. Continue home sertraline (50mg). Hold Xanax until d/c. -Pain: Well controlled with PO pain meds. -PPX: Hx VTE, holding home xarelto. Lovenox (40mg, IV) and SCDs for ppx. -Dispo: Anticipate discharge today Wade Jewell MD 02/14/19 Cosigned by Montse Thompson MD at 02/14/2019 8:04 AM CDT Associated attestation - Montse Thompson MD - 02/14/2019 8:04 AM CDT I have seen and examined the patient on 02/14/19. I agree with the findings and plan of care as documented in the resident's/fellow's note. 1. Routine post op care and anticipate discharge. * Santiago Herzog MD PhD - 02/13/2019 1:43 PM CDT 02/13/19 63 y.o. POD#0 s/p RATLH/BSO/Cysto for risk reduction in setting of BRCA2+. EBL: 20cc (pre-op Hgb: 11.0) - Pain is 7/10 described as crampy in lower abdominal region - Voiding spontaneously - Denies nausea and vomiting - Denies fevers/chills/chest pain/SOB Vital signs: BP 106/46 (BP Location: Right arm) Pulse 66 Temp 97.7 ??F (Oral) Resp 16 Ht 175.3 cm (5' 9 ) Wt 235 lb (106.6 kg) SpO2 100% BMI 34.70 kg/m?? Phys Exam: NAD, lying comfortably in bed, RRR, non-labored breathing, CTAB, obese abdomen soft non-distended, non-tender without rebound or guarding, incisions c/d/i A/P: 1. ID: Afebrile. S/p IV ancef. No signs/symptoms infection. 2. Heme: EBL 20cc, pre-op Hgb: 11.0. Follow-up on AM CBC. No signs/symptoms acute blood loss anemia. 3. CV/Pulm: VSS. Asymptomatic. Wean to RA, encourage IS. Hx of hypertension- will hold patient's HCTZ and statin. Continue home albuterol. 4. GI/: No n/v, ADAT. Passed VT. CTM UOP. 5. Endo: hx of not-insulin dependent T2DM will hold home dulaglutide and sitagliptin-metformin. Monitor BGs. 6. Psych: hx of anxiety/depression- continue home sertraline, will hold xanax 7. Pain: APAP, ibuprofen, gabapentin, oxycodone 8. PPx: hx of VTE- continue home xarelto for and SCDs Santiago Herzog MD, PhD ObGyn Resident PGY1 documented in this encounter H&P Notes * Marlon Damon MD - 02/13/2019 7:10 AM CDT General Pre-op H&P Subjective Patient is a 63 y.o. female with BRCA2 mutation for Dx lsc, KIKO, BSO. HPI: Ms. Gerber is a gaviota 63-year-old female, [...] has not had routine Pap smears, however. ?? The patient's pathology from 10/27/2018 showed that [...] with an endometrial stripe of 3 mm. ?? In the interim, the patient also has had a re-excision of a breast biopsy cavity on 11/11/[address] Aft. The pathology from this demonstrates no evidence of residual invasive carcinoma and only showed an incidental intraductal papilloma. ?? The patient overall feels well. She does complain of some fatigue. She has some mild changes in vision. She has shortness of breath with exertion. She also complains of diarrhea, depression, and moodchanges and hot flashes. Otherwise, she denies any pelvic pain, pelvic pressure, vaginal bleeding, vaginal discharge. Past Medical History: Diagnosis Date ??? Anemia ??? Anxiety ??? Asthma ??? At risk for sleep apnea Per assessment, STOP BANG=3. Pt reports her PCP wants to do a Sleep Study in the near future. ??? Breast cancer (CMS/HCC) 2018 left breasst cancer ??? Breast cancer (CMS/HCC) 2018 ??? 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 Colon cancer (CMS/HCC) 2017 ??? Colon polyps ??? COPD (chronic obstructive pulmonary disease) (CMS/HCC) ??? COPD (chronic obstructive pulmonary disease) (CMS/HCC) ??? Depression ??? DVT (deep vein thrombosis) in 05/2017 with multiple Pulmonary Emboli ??? Former smoker Quit 2015 ??? History of blood clots ??? History of ileus 12/2017 ??? Hypercholesteremia ??? Hypertension ??? Leg swelling Right lower extremity--known DVT ??? Lower extremity edema ??? Memory loss Some short-term memory loss ??? Mucositis ??? Obesity ??? Personal history of other medical treatment Hepatic steatosis ??? Personal history of other medical treatment History of BRCA2 mutation ??? PONV (postoperative nausea and vomiting) ??? SOB (shortness of breath) ??? SOB [...] HEMICOLECTOMY Left 12/27/2017 Laparoscopic left hemicolectomy ??? HERNIA REPAIR 1970s ??? INCONTINENCE SURGERY 2007 ??? INGUINAL HERNIA REPAIR Right 1970 ??? MASTECTOMY, PARTIAL Left 01/14/2018 Biopsy Breast Needle Localization partial mastectomy (L), Biopsy [place] Lymph Node With Lymphoscintigraphy (L), Insertion Port A Cath (R) with ultrasound and fluroscopy ??? PORTACATH PLACEMENT 01/2018 right upper chest ??? PORTACATH PLACEMENT 2017 ??? TUBAL LIGATION 1992 Medications Prior to Admission Medication Sig Dispense Refill Last Dose ??? acetaminophen (TYLENOL) 500 mg tablet Take 1,000 mg by mouth every 6 (six) hours as needed for pain 02/12/2019 at 2200 ??? albuterol HFA (PROVENTIL HFA,VENTOLIN HFA,PROAIR HFA) 90 mcg/actuation inhaler Inhale 2 puffs every 6 (six) hours as needed for wheezing 02/13/2019 at 0400 ??? ALPRAZolam (XANAX) 0.25 mg tablet Take 0.25 mg by mouth 3 (three) times a day as needed for anxiety 02/12/2019 at 0800 ??? atorvastatin (LIPITOR) 20 mg tablet Take 20 mg by mouth nightly 0 02/12/2019 at 0800 ??? biotin 1 mg capsule Take 1 tablet by mouth every morning Past Month at Unknown time ??? cholecalciferol (VITAMIN D3) 2,000 unit capsule Take 2,000 Units by mouth nightly Past Week atUnknown time ??? desoximetasone (TOPICORT) 0.25 % cream Apply to affected area every night prior to vanicream 60g 2 Past Week at Unknown time ??? fluticasone propion-salmeterol (ADVAIR DISKUS) 250-50 mcg/dose diskus inhaler Inhale 1 puff 2 (two) times a day Rinse mouth with water after use. Do not swallow. 1 each 5 02/13/2019 at 0400 ??? hydroCHLOROthiazide (HYDRODIURIL) 12.5 mg tablet Take 12.5 mg by mouth nightly 0 02/12/2019 at 0800 ??? LORazepam (ATIVAN) 0.5 mg tablet Take 1 tablet (0.5 mg total) by mouth daily Take one tablet one hour prior to radiation treatments daily. 15 tablet 0 Past Month at Unknown time ??? magnesium oxide 400 mg magnesium capsule Take 1 tablet by mouth 2 (two) times a day 02/12/2019 at 0800 ??? oxyCODONE (ROXICODONE) 5 mg immediate release tablet Take 1 tablet (5 mg total) by mouth every 4 (four) hours as needed for pain 8 tablet 0 Past Month at Unknown time ??? potassium chloride ER (KLOR-CON,K-DUR) 10 mEq CR tablet Take 1 tablet/capsule (10 mEq total) bymouth 2 (two) times a day (Patient taking differently: Take 10 mEq by mouth 2 (two) times a day ) 60 tablet/capsule 6 02/12/2019 at 0800 ??? rivaroxaban (XARELTO) 20 mg tablet Take 1 tablet (20 mg total) by mouth daily. (Patient taking differently: Take 20 mg by mouth nightly ) 30 tablet 6 Past Week at Unknown time ??? sertraline (ZOLOFT) 50 mg tablet Take 50 mg by mouth nightly 3 Past Week at Unknown time ??? sitaGLIPtin-metformin (JANUMET XR) 100-1,000 mg tablet, ER multiphase 24 hr Take 1 tablet by mouth daily with dinner 02/12/2019 at 0800 ??? dulaglutide (TRULICITY) 0.75 mg/0.5 mL pen injector Inject 0.75 mg under the skin every 7 days Saturday or Taking Allergies Allergen Reactions ??? Oxaliplatin Swollen tongue Throat swelling ??? Tetanus Vaccines And Toxoid Swelling and Rash Social History Tobacco Use ??? Smoking status: Former Smoker Packs/day: 1.00 Types: Cigarettes Start date: 1972 Last attempt to quit: 2015 Years since quittin.7 ??? Smokeless tobacco: Never Used Substance Use Topics ??? Alcohol use: Not Currently Frequency: Monthly or less Comment: socially Family History Problem Relation Age of Onset ??? Prostate cancer Father 60 ??? Pancreatic cancer Sister 40 ??? Other (pancreatic cancer) Sister ??? Liver cancer Maternal Grandmother 80 ??? Heart attack Mother 70 ??? Heart attack Maternal Grandfather ??? Heart attack Paternal Grandmother ??? Anesthesia problems Neg Hx Review of Systems Negative except as per above Objective Vitals: Arrival Vitals [02/13/19 0551] Temp 36.7 ??C (98.1 ??F) Pulse 72 Resp 11 BP 159/76 SpO2 98 % Temp src Temporal Heart Rate Source Monitor Patient Position BP Location FiO2 (%) 24hr Min/Max: Temp Min: 36.7 ??C (98.1 ??F) Max: 36.7 ??C (98.1 ??F) Pulse Min: 72 Max: 78 BP Min: 144/68 Max: 159/76 Resp Min: 11 Max: 20 SpO2 Min: 94 % Max: 98 % Most Recent : Vitals: 02/13/19 0640 BP: Pulse: 76 Resp: 18 Temp: SpO2: 97% No intake/output data recorded. No intake/output data recorded. Physical Exam Constitutional: She is oriented to person, place, and time. She appears well- developed and well-nourished. HENT: Head: Normocephalic and atraumatic. Cardiovascular: Normal rate and regular rhythm. Pulmonary/Chest: Effort normal and breath sounds normal. Abdominal: Soft. Bowel sounds are normal. She exhibits no distension. There is no tenderness. Thereis no guarding. Neurological: She is alert and oriented to person, place, and time. Skin: Skin is warm and dry. Psychiatric: She has a normal mood and affect. Her behavior is normal. Lab/Radiology/Diagnostic Review: Laboratory review: reviewed the laboratory result(s) and have no acute concerns Hg 11.0 on 02/05/19 Assessment Active Problems: No Active Problems: There are no active problems currently on the Problem List. Please update the Problem List and refresh. Plan - Consents reviewed with patient - R/B/A discussed, all questions answered - To OR today as planned Marlon Damon PGY-2 (LITHOPONE CHARGER) [phone] Cosigned by Montse Thompson MD at 02/13/2019 7:26 AM CDT Associated attestation - Montse Thompson MD - 02/13/2019 7:26 AM CDT I have seen and examined the patient on 02/13/19. I agree with the findings and plan of care as documented in the resident's/fellow's note. 1. Will proceed with eua, diagnostic laparoscopy, tlh. Bso, possible exploratory laparotomy. documented in this encounter Miscellaneous Notes * Plan of Care - Olamide Coleman - 02/14/2019 9:52 AM CDT Problem: Health Behavior: Goal: Understanding of discharge needs will improve Outcome: Progressing Problem: Activity: Goal: Ability to return to normal activity level will improve Outcome: Progressing Problem: Bowel/Gastric: Goal: Gastrointestinal status for postoperative course will improve Outcome: Progressing Problem: Fluid Volume: Goal: Will maintain adequate fluid volume Outcome: Progressing Problem: Sensory: Goal: Pain level will decrease Outcome: Progressing Goals: Monitor vs, Monitor I and O's Cosigned by Kirstie Magana NP at 09/06/2023 12:31 PM CDT * Plan of Care - Deyanira Boothe RN - 02/13/2019 7:29 PM CDT Goals: Clinical Goals for the Shift: tolerate PO intake, control pain, monitor vitals Summary: Problem: Health Behavior: Goal: Understanding of discharge needs will improve Outcome: Progressing Problem: Activity: Goal: Ability to return to normal activity level will improve Outcome: Progressing Problem: Bowel/Gastric: Goal: Gastrointestinal status for postoperative course will improve Outcome: Progressing Problem: Fluid Volume: Goal: Will maintain adequate fluid volume Outcome: Progressing Problem: Sensory: Goal: Pain level will decrease Outcome: Progressing * Plan of Care - Tavia Ortega RN - 02/13/2019 3:08 PM CDT Goals: Void Trial Tolerate PO Control pain Summary:Voided 200 on arrival to floor. Utilizing PRN and scheduled pain medications. Patient trying sips of clears. * Hospital Course - Wade Jewell MD - 02/13/2019 1:42 PM CDT Patient underwent an uncomplicated RATLH/BSO/cystoscopy for risk reduction in setting of BRCA2+ andwas subsequently admitted for routine postoperative care. 1) Infectious disease - The patient received IV Ancef prior to skin incision. The patient was afebrile and had no other signs or symptoms of infection throughout her hospital course. 2) Heme - The patient had an estimated blood loss of 20 mL. Her hemoglobin preoperatively was 11.0 and subsequently found to be 9.6 on postoperative day #1. Patient had no signs or symptoms of acute blood loss anemia. 3) Cardiovascular/Pulmonary - The patient's vital signs were stable throughout her admission. She was weaned to room air on postoperative day #0 and was encouraged to use her incentive spirometer q1hr while awake. She has a history of hypertension controlled with hydrochlorothiazide; her BP was within normal limits and did not require treatment. She was discharged with instructions to restart herhome medications. Home atorvastatin was held during admission. Albuterol was continued. 4) Gastrointestinal/Genitourinary - The patient was advanced to a regular diet on the evening of surgery, which she tolerated well. Patient was initiated on a bowel regimen postoperatively and sent home with a prescription for Colace. Patient passed her VT on POD #0 and was voiding spontaneously prior to discharge. 5) Neurologic- Patient's pain was initially controlled with IV toradol and PO oxycodone. On POD #1 she was transitioned to a regimen on tylenol, ibuprofen, gabapentin, and oxycodone. Patient pain wasadequately controlled upon discharge and she was discharged home with prescriptions for her pain medications. 6) Prophylaxis- Patient had sequential compression devices placed prior to surgery and were maintained throughout her admission. The patient has a history of venous thromboembolism and her home xarelto was held 72h prior to surgery and continued throughout her admission. 7) Psych- She has a history of anxiety/depression. Her home sertraline was continued, and home xanax was held. 8) Endo- She has a history of T2DM (non-insulin dependant) managed with dulaglutide and sitagliptin-metformin at home. These medications were held during admission. She did not require insulin to control blood sugars throughout her admission. She was discharged with instructions to restart her home medications. * Op Note - Ashlyn Shah MD - 02/13/2019 8:20 AM CDT .Operative Note ?? Surgical Team: ?? Surgeon(s) and Role: * Montse Thompson MD - Primary * Marlon Damon MD - Resident - Assisting * Ashlyn Shah MD - Fellow ?? Anesthesiologist: Antony Lester Sr., MD QUALITY CONTROL MICROBIOLOGIST: Lily Parada CRNA ?? Recovery Engineer: Cat Brar RN Recovery Engineer Relief: Kassie Levy RN Scrub: Cynthia Pascual [facility]: Delores Currie NP ?? DATE OF SURGERY : 02/13/2019 ?? Preoperative Diagnosis: Pre-op Diagnosis * Malignant neoplasm of upper-inner quadrant of left breast in female, 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) [C50.212, Z17.1] * BRCA2 gene mutation positive in female [Z15.01, Z15.02, Z15.09] ?? Postoperative Diagnosis: Post-op Diagnosis * Malignant neoplasm of upper-inner quadrant of left breast in female, 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) [C50.212, Z17.1] * BRCA2 gene mutation positive in female [Z15.01, Z15.02, Z15.09] ?? Procedure(s): Procedure(s) (LRB): Diagnostic Laparoscopy (N/A) Si Robotic Assisted Total Laparoscopic Hysterectomy (N/A) Si Robotic Assisted Laparoscopic Salpingo Oophorectomy (Bilateral) Cystoscopy (N/A) ?? Operative Findings: Uterus sounded to 8 cm, normal cervix Intraabdominal survey significant for adhesions from omentum to anterior abdominal wall in upper abdomen and at the level of the umbilicus. Normal appearing uterus, tubes, and ovaries Cysto with normally flowing ureters bilaterally and normal bladder ?? Estimated Blood Loss: 20 cc ?? Intraoperative Fluids: 1500 cc ?? Specimens: ID Type Source Tests Collected by Time 1 : pelvic washings Fluid Pelvic Washing (Cytology) CYTOLOGY Montse Thompson MD 02/13/2019 0851 A : uterus, cervix, bilateral tubes and ovaries Tissue Uterus with/without tubes & ovaries, Neoplastic SURGICAL PATHOLOGY Premmaura Thompson MD 02/13/2019 1002 ?? Implants: Nothing was implanted during the procedure Blood/Blood Products Transfused: n/a ?? Complications: No complications ?? Condition on Discharge from the operating room was stable Indication and Consent: Ms. 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 The patient had germline testing and was notedto be BRCA2 positive, and had a VUS, and BRIP1 and NBN. The patient's other testing showed no evidence of Grullon syndrome. The patient desired risk reducing surgery for her BRCA2 mutation. Given extensive surgical history, she was counseled on robotic approach for a minimally invasive hysterectomy with BSO. The patient was counseled on risks, benefits and alternatives of the procedure and agreed to proceed. All questions were answered. Consents were signed in the preoperative period. Procedure: The patient was prepped and draped in sterile fashion and placed in lithotomy position. Time out was performed to confirm correct patient and procedure. Exam under anesthesia was performed and confirmed the above stated findings. Attention was turned to the cervix and a medium size V-care was placed in standard fashion followed by a sterile myers catheter. Antibiotics were administered by the anesthesia team. Attention was then turned to the abdomen. A 5mm skin incision was made at Delong's point and a portwas introduced under direct visualization. Intraperitoneal placement was confirmed and pneumoperitoneum was developed to 15mmHg. An intraabdominal survey was performed with findings as noted above. Ad hesions were taken down from the anterior abdominal wlal without adverse event. Hemostasis was noted. Local anesthetic was injected and a 10mm camera port was placed at the umbilicus under direct visualization. Next, attention was turned to the left side of the abdomen. Two additional trochars wereplaced in the left lateral and left upper quadrant. Local anesthetic was injected and 8 mm skin incision was created, both trochars were placed under direct visualization without adverse event. Attention was turned to the right side of the abdomen and an additional robot trochar was placed in rightupper quadrant and the 5 Airseal was placed laterally. In a similar fashion local anesthetic appropriate sized skin incision and direct visualization placed these trochars without adverse event. The patient was then placed in steep trendelenburg, the bowel was swept from the pelvis, and the SIplatform was docked. Pelvic washings were obtained. Attention was turned to the left pelvic sidewall and the colon's peritoneal attachments were taken down with the scissors. The sidewall was then opened with the scissors and extended parallel to the gonadal vessels towards the round ligament. The round ligament was ligated with the bipolar and transected with scissors. The retroperitoneum was opened and exposed the ureter and iliac vessels. The gonadal vessels were then ligated with the bipolar and transected with the scissors and hemostasis was assured. The bladder flap was developed anteriorly. Next, attention was turned to the right pelvic side wall and the round ligament was cauterizedwith bipolar and transected with scissors. The peritoneum of the sidewall was opened parallel to the gonadal vessels and taken cephalad to the pelvic brim. The retroperitoneum was opened and exposed the ureter and iliac vessels. The avascular space of graves was opened with the cautery and the IP was skeletonized. The gonadal vessels were then ligated with the bipolar and transected with the scissors and hemostasis was assured. The bladder flap was connected anteriorly. The vesicovaginal space was then developed exposing the V-care cup and colpotomy site. Next the right uterine vessels were skeletonized and taken with the bipolar and transected with the scissors. Serial tissue purchases with bipolar followed by scissor transection were used to take down the uterosacral-cardinal complex until the site of cervical vaginal junction was exposed. Similarly the left uterine vessels were skeletonized and ligated with bipolar cautery and transected with the scissors. The uterosacral-cardinal complex was taken down with bipolar and scissor ligation exposing the cervical vaginal junction. Next the colpotomy was initiated at 12 O'clock and completed circumferentially. The specimen was extracted via the vagina. The vaginal cuff was closed with an 0 V-lock in standard fashion. Cystoscopy wasperformed with normal findings. The surgical beds were inspected and confirmed hemostatic. Speculum exam confirmed a closed hemostatic cuff. The gas and trochars were removed from the abdomen. The 10 mm camera port fascia was closed with an 0-Vicryl in direct fashion. The remaining skin incisions were all closed with 4-0 Monocrylin subcuticular fashion. The attending Dr. Thompson was present and participating for entire procedure Cosigned by Montse Thompson MD at 02/23/2019 7:01 AM CDT Associated attestation - Montse Thompson MD - 02/23/2019 7:01 AM CDT I was present for the entire procedure. * Brief Op Note - Ashlyn Shah MD - 02/13/2019 8:20 AM CDT Operative Progress Note Surgical Team: Surgeon(s) and Role: * Montse Thompson MD - Primary * Marlon Damon MD - Resident - Assisting * Ashlyn Shah MD - Fellow Anesthesiologist: Antony Lester Sr., MD QUALITY CONTROL MICROBIOLOGIST: Lily Parada CRNA Recovery Engineer: Cat Brar RN Recovery Engineer Relief: Kassie Levy RN Scrub: [facility] [place] GUEST RELATIONS MANAGER: Delores Currie NP DATE OF SURGERY : 02/13/2019 Preoperative Diagnosis: Pre-op Diagnosis * Malignant neoplasm of upper-inner quadrant of left breast in female, 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) [C50.212, Z17.1] * BRCA2 gene mutation positive in female [Z15.01, Z15.02, Z15.09] Postoperative Diagnosis: Post-op Diagnosis * Malignant neoplasm of upper-inner quadrant of left breast in female, 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) [C50.212, Z17.1] * BRCA2 gene mutation positive in female [Z15.01, Z15.02, Z15.09] Procedure(s): Procedure(s) (LRB): Diagnostic Laparoscopy (N/A) Si Robotic Assisted Total Laparoscopic Hysterectomy (N/A) Si Robotic Assisted Laparoscopic Salpingo Oophorectomy (Bilateral) Cystoscopy (N/A) Operative Findings: Uterus sounded to 8 cm, normal cervix Intraabdominal survey significant for adhesions from omentum to anterior abdominal wall in upper abdomen and at the level of the umbilicus. Normal appearing uterus, tubes, and ovaries Cysto with normally flowing ureters bilaterally and normal bladder Estimated Blood Loss: 20 cc Intraoperative Fluids: 1500 cc Specimens: ID Type Source Tests Collected by Time 1 : pelvic washings Fluid Pelvic Washing (Cytology) CYTOLOGY Montse Thompson MD 02/13/2019 0851 A : uterus, cervix, bilateral tubes and ovaries Tissue Uterus with/without tubes & ovaries, Neoplastic SURGICAL PATHOLOGY Montse Thompson MD 02/13/2019 1002 Implants: Nothing was implanted during the procedure Blood/Blood Products Transfused: n/a Complications: No complications Condition on Discharge from the operating room was stable Ashlyn Shah MD Date: 02/13/2019 Time: 10:[address] Thompson was present and participating for the entire procedure Cosigned by Montse Thompson MD at 02/14/2019 8:19 AM CDT Associated attestation - Montse Thompson MD - 02/14/2019 8:19 AM CDT I was present for the entire procedure on 02/13/19. documented in this encounter Plan of Treatment Scheduled Orders Name Type Priority Associated Diagnoses Order Schedule Surgical pathology Pathology and Cytology Routine Malignant neoplasm of upper-inner quadrant of left breast in female, 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) BRCA2 gene mutation positive in female Once (Routine) for 1 Occurrences starting 02/13/2019 documented as of this encounter Procedures Procedure Name Priority Date/Time Associated Diagnosis Comments CBC WITHOUT DIFFERENTIAL Routine 02/13/2019 8:42 PM CDT PHOSPHORUS Routine 02/13/2019 8:42 PM CDT MAGNESIUM Routine 02/13/2019 8:42 PM CDT BASIC METABOLIC PANEL Routine 02/13/2019 8:42 PM CDT POCT GLUCOSE DEVICE Routine 02/13/2019 1 1:15 AM CDT POCT GLUCOSE DEVICE Routine 02/13/2019 1 0:39 AM CDT SURGICAL PATHOLOGY Routine 02/13/2019 10 :02 AM CDT CYTOLOGY Routine 02/13/2019 8:51 AM CDT Malignant neoplasm of upper-inner quadrant of left breast in female, 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) BRCA2 gene mutation positive in female CYSTOSCOPY 02/13/2019 7:29 AM CDT Malignant neoplasm of upper-inner quadrant of left breast in female, 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) BRCA2 gene mutation positive in female SI SALPINGO-OOPHORECTOMY - LAPAROSCOPIC ROBOTIC ASSISTED 02/13/2019 7:29 AM CDT Malignant neoplasm of upper-inner quadrant of left breast in female, 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) BRCA2 gene mutation positive in female SI HYSTERECTOMY - LAPAROSCOPIC ROBOTIC ASSISTED - ABDOMINAL 02/13/2019 7:29 AM CDT Malignant neoplasm of upper-inner quadrant of left breast in female, 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) BRCA2 gene mutation positive in female LAPAROSCOPY DIAGNOSTIC - OPERATIVE 02/13/2019 7:29 AM CDT Malignant neoplasm of upper-inner quadrant of left breast in female, 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) BRCA2 gene mutation positive in female POCT GLUCOSE DEVICE Routine 02/13/2019 6 :44 AM CDT documented in this encounter Results * Phosphorus (02/13/2019 8:42 PM CDT) Phosphorus, pl 3.6 2.3 - 4.5 mg/dL [facility] Blood specimen (specimen) 02/13/2019 8:42 PM CDT 02/13/2019 9:12 PM CDT us Premal Ac Thompson MD LAB BLOOD ORDERABLES Fin al Result Performing Organization Address [facility]/ZIP Co de Phone Number [address] [address] * Magnesium (02/13/2019 8:42 PM CDT) Pathologist [facility] Magnesium 1.8 1.4 - 2.5 mg/dL [facility] Blood specimen (specimen) 02/13/2019 8:42 PM CDT 02/13/2019 9:12 PM CDT [facility] Ac Thompson MD LAB BLOOD ORDERABLES Fin al Result Performing Organization Address [facility] de Phone Number [address] [address] * (ABNORMAL) CBC without differential (02/13/2019 8:42 PM CDT) [facility] WBC 9.4 3.8 - 9.9 K/cumm [facility] Hgb 9.6(L) 11.9 - 15.5 g/dL [facility] Hct 29.5(L) 35.6 - 45.5 % [facility] Plt 136(L) 150 - 400 K/cumm [facility] MPV 9.6 9.1 - 12.3 fL [facility] RBC 3.23(L) 3.90 - 5.20 M/cumm [facility] MCV 91.3 81.3 - 96.4 fL [facility] MCH 29.7 27.1 - 33.3 pg [facility] MCHC 32.5 32.3 - 35.7 g/dL [facility] RDW CV 15.2(H) 11.1 - 14.9 % [facility] RDW SD 51.6(H) 35.7 - 48.1 fL [facility] NRBC abs 0.00 0.00 - 0.01 K/cumm [facility] Blood specimen (specimen) 02/13/2019 8:42 PM CDT 02/13/2019 9:11 PM CDT Premmaura Thompson MD LAB BLOOD ORDERABLES Fin al Result Performing Organization Address City/[facility]/ZIP Co de Phone Number [facility] [address] [place] [address] * (ABNORMAL) Basic metabolic panel (02/13/2019 8:42 PM CDT) Sodium 138 135 - 145 mmol/L [facility] Potassium, pl 3.9 3.3 - 4.9 mmol/L [facility] Chloride 103 97 - 110 mmol/L [facility] CO2 26 22 - 32 mmol/L [facility] Anion gap 9 2 - 15 mmol/L [facility] BUN 18 8 - 25 mg/dL [facility] Creatinine 1.17(H) 0.60 - 1.10 mg/dL [facility] Glucose 140 70 - 199 mg/dL [facility] Comment: Interpretive Data Fasting glucose [...] interpretive data was last revised 2017. Calcium 8.7 8.5 - 10.3 mg/dL [facility] Blood specimen (specimen) 02/13/2019 8:42 PM CDT 02/13/2019 9:12 PM CDT us Premal Ac Thompson MD LAB BLOOD ORDERABLES Fin al Result Performing Organization Address [facility] Co de Phone Number LEVAR MICHELLE [address] [place] [address] * POCT glucose (02/13/2019 11:15 AM CDT) Glucose, POC 128 70 - 199 mg/dL [facility] Blood specimen (specimen) 02/13/2019 11:15 AM CDT 02/13/2019 11:15 AM CDT Montse Thompson MD LAB POCT ORDERABLES - DE VICE Final Result Performing Organization Address [facility] Co de Phone Number LEVAR MICHELLE[address] [address] * POCT glucose (02/13/2019 10:39 AM CDT) Glucose, POC 163 70 - 199 mg/dL LEV[facility] Blood specimen (specimen) 02/13/2019 10:39 AM CDT 02/13/2019 10:39 AM CDT Montse Thompson MD LAB POCT ORDERABLES - DE VICE Final Result Performing Organization Address [facility] Phone Number LEVAR [address] [address] * Surgical pathology (02/13/2019 10:02 AM CDT) 02/13/2019 10:0 2 AM CDT 02/13/2019 12:14 PM CDT Narrative 02/20/2019 8:35 PM CDT EPIC results best viewed via link to PDF [facility] [place] [address] SURGICAL PATHOLOGY REPORT FINAL Patient Name: ?? ALEAH GERBER Gender: ??F : ??1955 (Age: 63) Address: ??[address] [place] [id number] Hospital #: ??[id number] Taken:02/13/2019 Received:02/13/2019 Reported: 02/20/2019 Patient Type: [facility] SDS ?? Service: Surgery Location: [place] [address] Physician(s): ??Premal Donna, M.D. Ravi Mulligan, M.D. Diagnosis: Uterus, cervix, bilateral tubes and ovaries, total hysterectomy and salpingo-oophorectomy ? 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 Gilberto Linares M.D., Ph.D. Report Electronically Reviewed and Signed Out By ??Gilberto Linares M.D., Ph.D. 02/20/2019 20:35:21 Microscopic Description and Comment: Microscopic examination substantiates the above cited diagnosis. Dr. Dawit Franks has reviewed the sections of the right ovary and concurs. Lis Trivedi M.D. 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 The patient had germline testing and was noted to be BRCA2 positive. ??Operative procedure: Hysterectomy with bilateral salpingo- oophorectomy Specimen(s) Received: A: Uterus, cervix, bilateral tubes and ovaries Gross Description: The specimen is received in a single formalin filled container, labeled with the patient's name and uterus, cervix, bilateral tubes and ovaries and contains a specimen of uterus measuring 7 cm from cervix to fundus, 4.5 cm from side to side, and 3.5 cm from anterior to posterior. ??The bilateral fallopian tubes are discontinuous, consistent with a history of tubal ligation. ??The right fallopian tube measures 3.2 cm in length and 1 cm in diameter, its fimbrial end is identified, some mucinous cysts can be seen, and the portion attached to the uterine cornua measures 2 cm in length and 0.5 cm in diameter. ??The right ovary measures 4.2 x 1.7 x 1.3 cm. ??The left fallopian tube measures 4.5 cm in length and 1 cm in average diameter, its fimbrial end identified, some cystic lesions are seen over the surface, and the part attached to the uterine cornua measures 1.9 cm in length and 0.5 cm in diameter. ??The left ovary measures 4.6 cm a 2 cm x 1 cm. ??The ovarian capsule is intact bilaterally. ??The external surface of the right ovary and fallopian tube is inked green and the left ovary and fallopian tube is inked blue. ??The uterus with cervix weighs 71 g and has a glistening serosa. ??The exocervix is tovar-white and glistening, measuring 3 x 3 cm with an ovoid os measuring 0.9 x 0.7 cm. ??The endocervical canal measures 3 x 0.6 cm and is lined by herringbone mucosa. ??The endometrial cavity measures 3.2 x 0.7 cm and is lined by shaggy brown endometrium. ??The myometrial thickness is 1.5 cm and it shows trabeculations. ??There are no uterine leiomyomas. ??A1 to A5-left ovary serial sections, A6 and A7-fallopian tube, A8-left fallopian tube attached to uterine cornua, A9 and R11-iksqb ovary serial sections, A13 and O00-jsqoq fallopian tube serial sections, E89-gerxuen of fallopian tube attached to uterine cornua, K49-tbwbaklj exocervix, M19-adszqaep endomyometrium, V21-ddwahnvjw exocervix, G69-axsjmenzq endomyometrium. ??Jar 2. ?? axa/02/13/2019 18:21 Lis Trivedi M.D. By this signature, I attest that the above diagnosis is based upon my personal examination of the slides(and/or other material). The performance characteristics of some immunohistochemical stains, fluorescence in-situ hybridization tests and immunophenotyping by flow cytometry cited in this report (if any) were determined by the Surgical Pathology Department at [facility] as part of an ongoing business quality assurance analyst program and in compliance with federally mandated [...] determined by the Surgical Pathology Department of [facility]. ??It has not been cleared or approved by the U. S. Food and Drug Administration. IMAGES AND SCANNED DOCUMENTS, IF INCLUDED, ONLY VIEWABLE IN PDF VERSION OF REPORT Montse Thompson MD LAB PATHOLOGY ORDERABLES Final Result * Cytology (02/13/2019 8:51 AM CDT) Fluid (Pelvic Washing (Cytology)) 02/13/2019 8:51 AM CDT Narrative PATHOLOGY [facility] - 02/16/2019 3:34 PM CDT EPIC results best viewed via link to PDF [facility] [place] [address] CYTOPATHOLOGY REPORT FINAL Patient Name: ?? ALEAH GERBER Gender: ??F : ??1955 (Age: 63) Address: ??[address] [place] [address] ??[address] Hospital #: ??[id number] Taken:02/13/2019 Received:02/13/2019 Reported: 02/16/2019 Patient Type: [facility] SDS ?? Service: Surgery Location: [place] [address] Physician(s): ??David Locke M.D. FINAL DIAGNOSIS A. Pelvic washings: ? - Negative for malignancy rcwp/02/16/2019 15:34 By this signature, I attest that the above diagnosis is based upon my personal examination of the slides(and/or other material indicated in the diagnosis). Neil Ball, DO Report Electronically Reviewed and Signed Out By ??Neil Ball DO 02/16/2019 15:34:16 Duglas Vázquez, CT(ASCP), CFIAC Gross Description A. Pelvic washings: 50 ml of cloudy fluid - 1 Pap stained ThinPrep. (pc) ?? Clinical Diagnosis and History The patient is a 63 year old woman with a malignant neoplasm of the upper-inner quadrant of left breast that is estrogen receptor negative, BRCA2 gene mutation positive. REPORT IMAGES AND SCANNED DOCUMENTS, IF INCLUDED, ONLY VIEWABLE IN PDF VERSION OF REPORT The performance characteristics of some immunohistochemical stains, in-situ hybridization and fluorescence in-situ hybridization tests and immunophenotyping by flow cytometry cited in this report (if any) were determined by the Surgical Pathology Department at [facility] as part of an ongoing business quality assurance analyst program and in compliance with federally mandated [...] following disclaimer be attached to the report: ??This test was developed and its performance characteristics determined by the Surgical Pathology Department of [facility]. ??It has not been cleared or approved by the U. S. Food and Drug Administration. us Premal Ac Thompson MD LAB CYTOLOGY ORDERABLES Final Result PATHOLOGY [facility] 3rd Floor [place], [place] [phone] * POCT glucose (02/13/2019 6:44 AM CDT) Glucose, POC 115 70 - 199 mg/dL LEV[facility] Blood specimen (specimen) 02/13/2019 6:44 AM CDT 02/13/2019 6:44 AM CDT [facility] Ac Thompson MD LAB POCT ORDERABLES - DE VICE Final Result LEVAR MICHELLE [address] [place] [address] documented in this encounter Visit Diagnoses Diagnosis BRCA2 gene mutation positive in female- Primary Malignant neoplasm of upper-inner quadrant of left breast in female, estrogen receptor negative (HCC) BRCA2 gene mutation positive in female Malignant neoplasm of upper-inner quadrant of left breast in female, estrogen receptor negative (HCC) documented in this encounter Administered Medications Inactive Administered Medications - up to 3 most recent administrations Medication Order MAR Action Action Date Dose Rate Site acetaminophen (TYLENOL) tablet 1,000 mg 1,000 mg, oral, Every 6 hours scheduled, First dose on 02/14/19 at 0300, When NSAIDS are ordered, alternate acetaminophen with NSAIDS (03:00; 9:00, 15:00, 21:00), Indications: PainIndications:Pain Given 02/14/2019 8:27 AM CDT 1,000 mg Given 02/14/2019 3:39 AM CDT 1,000 mg albuterol HFA (PROVENTIL HFA,VENTOLIN HFA,PROAIR HFA) 90 mcg/actuation inhaler 2 puff 2 puff, inhalation, Every 6 hours PRN, wheezing, Starting on 02/14/19 at 0907, RN TO ADMINISTER, Indications: Acute Asthma AttackIndications:Acute Asthma Attack docusate sodium (COLACE) capsule 100 mg 100 mg, oral, 2 times daily, First dose on Sat02/13/19 at 1400, Hold if diarrhea., Indications: constipation, Stool SoftenerIndications:constipation,Stool Softener Given 02/14/2019 8:27 AM CDT 100 mg Given 02/13/2019 8:30 PM CDT 100 mg enoxaparin (LOVENOX) syringe 40 mg 40 mg, subcutaneous, Daily (for enoxaparin), First dose on Sat02/13/19 at 2100, Indications: Deep Vein Thrombosis PreventionIndications:Deep Vein Thrombosis Prevention Given 02/13/2019 8:30 PM CDT 40 mg Right Lower Abdomen fluticasone propion-salmeterol (ADVAIR DISKUS) 250-50 mcg/dose diskus inhaler 1 puff 1 puff, inhalation, 2 times daily (respiratory supervisor), First dose (after last modification) on Sat02/13/19 at 2100, Rinse mouth with water after use. Do not swallow. Given 02/14/2019 8:26 AM CDT 1 puff Given 02/13/2019 9:17 PM CDT 1 puff fluticasone propion-salmeterol (ADVAIR DISKUS) 250-50 mcg/dose diskus inhaler 1 puff 1 puff, inhalation, 2 times daily (respiratory supervisor), First dose (after last modification) on Sat02/14/19 at 2100, Rinse mouth with water after use. Do not swallow. RN TO ADMINISTER gabapentin (NEURONTIN) capsule 300 mg 300 mg, oral, 2 times daily, First dose on Sat02/13/19 at 1400, Indications: PainIndications:Pain Given 02/14/2019 8:27 AM CDT 300 mg Given 02/13/2019 8:30 PM CDT 300 mg heparin 100 unit/mL injection 500 Units 500 Units (5 mL), IV flush, Once, On Sat02/14/19 at 1200, For 1 dose Given 02/14/2019 11:29 AM CDT 500 Units HYDROmorphone (DILAUDID) injection 0.5 mg 0.5 mg, intravenous, Administer over 2 Minutes, Every 10 min PRN, 1st line for pain, Starting on Sat02/13/19 at 1102, Phase I, Notify Anesthesiologist if total PACU dose reaches 4 mg and pain score 5/10 or more., Indications: PainIndications:Pain Given 02/13/2019 11:23 AM CDT 0.5 mg ibuprofen (ADVIL,MOTRIN) tablet 600 mg 600 mg, oral, Every 6 hours scheduled, First dose on Sat02/13/19 at 1400, Indications: PainIndications:Pain Given 02/14/2019 11:29 AM CDT 600 mg Given 02/14/2019 5:56 AM CDT 600 mg Given 02/14/2019 12:24 AM CDT 600 mg ondansetron (ZOFRAN) injection 4 mg 4 mg, intravenous, Administer over 2 Minutes, Every 6 hours PRN, nausea, vomiting, if not tolerating PO, Starting on Sat02/13/19 at 1325, Indications: Nausea and VomitingIndications:Nausea and Vomiting ondansetron ODT (ZOFRAN-ODT) disintegrating tablet 4 mg 4 mg, oral, Every 6 hours PRN, nausea, vomiting, Starting on Sat02/13/19 at 1325, Indications: Nausea and VomitingIndications:Nausea and Vomiting oxyCODONE (ROXICODONE) tablet 5 mg 5 mg, oral, Every 4 hours PRN, 2nd line for pain, Starting on Sat02/13/19 at 1325, Indications: PainIndications:Pain Given 02/13/2019 10:01 PM CDT 5 mg Given 02/13/2019 5:42 PM CDT 5 mg Given 02/13/2019 1:38 PM CDT 5 mg sertraline (ZOLOFT) tablet 50 mg 50 mg, oral, Nightly, First dose on Sat02/13/19 at 2100, Indications: Anxiety with DepressionIndications:Anxiety with Depression Given 02/13/2019 8:3 0 PM CDT 50 mg simethicone (MYLICON) chewable tablet 80 mg 80 mg, oral, 4 times daily PRN, flatulence, bloating, fullness, and discomfort of gastrointestinal gas, Starting on Sat02/13/19 at 1325, Indications: FlatulenceIndications:Flatulence Given 02/13/2019 10:04 PM CDT 80 mg sodium chloride 0.9% flush 0.5-20 mL 0.5-20 mL, intra-catheter, Every 8 hours scheduled, First dose on Sat02/13/19 at 1400, Flush volume based on line type and size. Given 02/14/2019 5:57 AM CDT 10 mL Given 02/13/2019 8:32 PM CDT 10 mL Given 02/13/2019 5:43 PM CDT 10 mL documented in this encounter Discontinued Medications Medication Sig Discontinue Reason Start Date End Da te ibuprofen (ADVIL,MOTRIN) 600 mg tabletIndications:Pain Take 1 tablet (600 mg total) by mouth every 6 (six) hours 02/14/2019 02/14/2019 docusate sodium (COLACE) 100 mg capsuleIndications:con stipation,Stool Softener Take 1 capsule (100 mg total) by mouth 2 (two) times a day 02/14/2019 02/14/2019 oxyCODONE (ROXICODONE) 5 mg immediate release tabletIndications:Pain Take 1 tablet (5 mg total) by mouth every 4 (four) hours as needed for pain Stop Taking at Discharge 11/11/2018 02/14/2019 documented as of this encounter Active and Recently Administered Medications Times are shown in CDT. Scheduled Medication Order 02/12/2019 02/13/2019 02/14/2019 acetaminophen (TYLENOL) tablet 1,000 mg 1,000 mg, oral, Every 6 hours scheduled, First dose on Sat02/14/19 at 0300, When NSAIDS are ordered, alternate acetaminophen with NSAIDS (03:00; 9:00, 15:00, 21:00), Indications: Pain 033 (Given - Provid er: Deyanira Boothe RN)08 (Given - Provider: Oalmide Coleman) docusate sodium (COLACE) capsule 100 mg 100 mg, oral, 2 times daily, First dose on Sat02/13/19 at 1400, Hold if diarrhea., Indications: constipation, Stool Softener 150 (Not Given - Provider: Tavia Ortega RN - Reason: Contraindicated)2029 (Given - Provider: Deyanira Boothe RN) 08 (Given - Provider: Olamide Coleman) enoxaparin (LOVENOX) syringe 40 mg (CANCELED) 40 mg, subcutaneous, Daily (for enoxaparin), First dose on Sat02/13/19 at 2100, Indications: Deep Vein Thrombosis Prevention 2029 (Given - Provider: Deyanira Boothe RN) fluticasone propion-salmeterol (ADVAIR DISKUS) 250-50 mcg/dose diskus inhaler 1 puff (CANCELED) 1 puff, inhalation, 2 times daily (respiratory supervisor), First dose (after last modification) on Sat02/13/19 at 2100, Rinse mouth with water after use. Do not swallow. 2116 (Given - Provider: Jac Mccarty, PULP MIXER) 08 (Given - Provider: Olamide Coleman) fluticasone propion-salmeterol (ADVAIR DISKUS) 250-50 mcg/dose diskus inhaler 1 puff 1 puff, inhalation, 2 times daily (respiratory supervisor), First dose (after last modification) on 02/14/19 at 2100, Rinse mouth with water after use. Do not swallow. RN TO ADMINISTER gabapentin (NEURONTIN) capsule 300 mg 300 mg, oral, 2 times daily, First dose on Sat02/13/19 at 1400, Indications: Pain 1507 (Not Given - Provider: Tavia Ortega RN - Reason: Contraindicated)2029 (Given - Provider: Deyanira Boothe RN) 0827 (Given - Provider: Olamide Coleman) heparin 100 unit/mL injection 500 Units (COMPLETED) 500 Units (5 mL), IV flush, Once, On 02/14/19 at 1200, For 1 dose 1129 (Given - Provid er: Olamide Coleman) ibuprofen (ADVIL,MOTRIN) tablet 600 mg 600 mg, oral, Every 6 hours scheduled, First dose on Sat02/13/19 at 1400, Indications: Pain 1338 (Given - Provider: Tavia Ortega RN)1742 (Given - Provider: Tavia Ortega RN) 0024 (Given - Provider: Deyanira Boothe RN)0556 (Given - Provider: Deyanira Boothe RN)1129 (Given - Provider: Olamide Coleman) rivaroxaban (XARELTO) tablet 20 mg 20 mg, oral, Nightly, First dose on 02/14/19 at 2100, Administer doses greater than or equal to 15 mg/day with food; doses of 10 mg/day may be administered without regard to meals. If on heparin infusion, discontinue heparin infusion upon first administration of rivaroxaban., Indications: Prevention of Recurrent Venous Thrombosis in Malignancy 1616 (Held by Provider - Provider: Cynthia Quintana MD - Reason: Change in Patient Status) 0804 (MAR Unhold - Provider: Bridger Winston MD) sertraline (ZOLOFT) tablet 50 mg 50 mg, oral, Nightly, First dose on Sat02/13/19 at 2100, Indications: Anxiety with Depression 2029 (Given - Provider: Deyanira Boothe RN) sodium chloride 0.9% flush 0.5-20 mL 0.5-20 mL, intra-catheter, Every 8 hours scheduled, First dose on Sat02/13/19 at 1400, Flush volume based on line type and size. 1743 (Given - Provider: Tavia Ortega, LYDIA)2032 (Given - Provider: Deyanira Boothe, LYDIA) 0557 (Given - Provider: Deyanira Boothe, LYDIA) Continuous Medication Order 02/12/2019 02/13/2019 02/14/2019 Lactated Ringer's (LR) infusion (CANCELED) 30 mL/hr, intravenous, Continuous, Starting on Sat02/13/19 at 0615, Pre-Op 0723 (New Bag - Provider: Lily Parada CRNA)1033 (New Bag - Provider: Lily Parada CRNA)1051 (Stopped - Provider: Lily Parada CRNA) PRN Medication Order 02/12/2019 02/13/2019 02/14/2019 albuterol HFA (PROVENTIL HFA,VENTOLIN HFA,PROAIR HFA) 90 mcg/actuation inhaler 2 puff 2 puff, inhalation, Every 6 hours PRN, wheezing, Starting on 02/14/19 at 0907, RN TO ADMINISTER, Indications: Acute Asthma Attack aluminum-magnesium hydroxide-simethicone (MAALOX) 40-40-4 mg/mL oral suspension 30 mL 30 mL, oral, Every 6 hours PRN, indigestion, heartburn, Starting on Sat02/13/19 at 1325, Indications: Dyspepsia HYDROmorphone (DILAUDID) injection 0.5 mg (CANCELED) 0.5 mg, intravenous, Administer over 2 Minutes, Every 10 min PRN, 1st line for pain, Starting on Sat02/13/19 at 1102, Phase I, Notify Anesthesiologist if total PACU dose reaches 4 mg and pain score 5/10 or more., Indications: Pain 1123 (Given - Provider: Galilea Pabon, LYDIA) ondansetron (ZOFRAN) injection 4 mg(Linked Group 1) 4 mg, intravenous, Administer over 2 Minutes, Every 6 hours PRN, nausea, vomiting, if not tolerating PO, Starting on Sat02/13/19 at 1325, Indications: Nausea and Vomiting ondansetron ODT (ZOFRAN-ODT) disintegrating tablet 4 mg(Linked Group 1) 4 mg, oral, Every 6 hours PRN, nausea, vomiting, Starting on Sat02/13/19 at 1325, Indications: Nausea and Vomiting oxyCODONE (ROXICODONE) tablet 5 mg 5 mg, oral, Every 4 hours PRN, 2nd line for pain, Starting on Sat02/13/19 at 1325, Indications: Pain 1338 (Given - Provider: Tavia Ortega RN)1742 (Given - Provider: Tavia Ortega RN)2201 (Given - Provider: Deyanira Boothe RN) simethicone (MYLICON) chewable tablet 80 mg 80 mg, oral, 4 times daily PRN, flatulence, bloating, fullness, and discomfort of gastrointestinal gas, Starting on Sat02/13/19 at 1325, Indications: Flatulence 2204 (Given - Provider: Deyanira Boothe RN) sodium chloride 0.9 % irrigation (CANCELED) As needed, Starting on Sat02/13/19 at 0851, Intra-Op 0851 (Given - Provider: Montse Thompson MD) sodium chloride 0.9% flush 0.5-20 mL 0.5-20 mL, intra-catheter, As needed, line care, Starting on Sat02/13/19 at 1325, Flush volume based on line type and size. Flush before and after each use. Linked Groups Order Group 1: ondansetron ODT (ZOFRAN-ODT) disintegrating tablet 4 mgJump to med 4 mg, oral, Every 6 hours PRN, nausea, vomiting, Starting on Sat02/13/19 at 1325, Indications: Nausea and Vomiting Or ondansetron (ZOFRAN) injection 4 mgJump to med 4 mg, intravenous, Administer over 2 Minutes, Every 6 hours PRN, nausea, vomiting, if not tolerating PO, Starting on Sat02/13/19 at 1325, Indications: Nausea and Vomiting documented in this encounter Orders Medications Ordered That [place] ht Not Have Been Administered Count Last Ordered Date First Ordered Date albuterol HFA (PROVENTIL HFA ,VENTOLIN HFA,PROAIR HFA) 90 mcg/actuation inhaler 2 puff 3 02/14/2019 02/13/2019 fluticasone propion-salmeter ol (ADVAIR DISKUS) 250-50 mcg/dose diskus inhaler 1 puff 2 02/14/2019 02/13/2019 acetaminophen (TYLENOL) tablet 1,000 mg 1 1 albuterol (PROVENTIL,VENTOLI N) 2.5 mg/0.5 mL nebulizer solution 2.5 mg 1 02/13/2019 aluminum-magnesium hydroxide -simethicone (MAALOX) 40-40-4 mg/mL oral suspension 30 mL 1 02/13/2019 fentaNYL (SUBLIMAZE) preserv ative free injection 50 mcg 1 02/13/2019 gabapentin (NEURONTIN) capsule 300 mg 1 03/2019 haloperidol (HALDOL) injection 1 mg 1 02/13 heparin 10 unit/mL flush 40 Units 1 019 Lactated Ringer's (LR) infusion 2 9 lidocaine PF (XYLOCAINE) 10 mg/mL (1 %) preservative free injection 2-10 mg 1 02/13/2019 meperidine (DEMEROL) preserv ative free injection 12.5 mg 1 02/13/2019 naloxone (NARCAN) 0.4 mg/mL injection 0.04-0.4 mg 1 02/13/2019 ondansetron (ZOFRAN) injection 4 mg 2 02/13 ondansetron ODT (ZOFRAN-ODT) disintegrating tablet 4 mg 1 02/13/2019 rivaroxaban (XARELTO) tablet 20 mg 1 2018 sodium chloride 0.9 % irrigation 1 02/14/20 19 sodium chloride 0.9% flush 0.5-20 mL 3 02/03 sodium chloride 0.9% flush 10-20 mL 1 02/13 sodium chloride 0.9% flush 5-10 mL 1 2018 Transfer Count Last Ordered Date First Orde red Date TRANSFER PATIENT 1 02/13/2019 CORE MEASURES Count Last Ordered Date First Ord ered Date REASON FOR NO VTE PROPHYLAXI S - HOSPITAL ADMISSION - MEDICATIONS 1 02/13/2019 documented in this encounter Care Teams Obstetrician Gynecologist Relationship Specialty Start Date End Date Ravi Smith MD PCP - General 11/04/17 09/27/21 AfKianna simpson MD PhD [address] [place] [address] Surgeon Surgical Oncology 11/22/17 Santiago Gilbert MD [address] [place] [address] [facility] 11/22/17 Dmitry Sanderson MD [address] [place] [address] Referring Physician Colon and Rectal Surgery 12/03/1805/06 Abbi Ventura MD [address] [place] [address] [address] [place] [address] Medical Oncologist/Pediatric Sports Medicine Specialist Medical Oncology 12/03/18 Montse Thompson MD [address] [place] [address] [place] [address] Consulting Physician Gynecologic Oncology 12/03/18 Lela Hardy MD PhD [address] [place] [address] [place] [address] Radiation Oncologist Radiation Oncology 12/23/18 Kianna Bunch MD PhD [address] [place] [address] [address] [place] [address] Surgeon Surgical Oncology 12/23/18 09/17/21 documented as of this encounter
--- OUTSIDE RECORDS SUMMARY | 2024-04-24 13:43 | XMS_ITS | Encounter Summary ---
Author Organization [facility] Address [address] [place] [address] Phone Care Team Providers Care Remote Control Assembler Name Role Phone Ravi Smith MD Primary Care Provider [phone] Aft, Kianna Machado MD PhD Unavailable [phone] Santiago Gilbert MD Unavailable [phone] Dmitry Sanderson MD Unavailable [phone] Abbi Ventura MD Unavailable Montse Thompson MD Unavailable [phone] Lela Hardy MD PhD Unavailable [phone] Aft, Kianna Machado MD PhD Unavailable [phone] Encounter Details Date Type Department Care Team (Late st Contact Info) Description 06/08/2019 Documentation [facility] Neuro Sleep [address] [facility] [facility] 6th Floor [address] [place] [address] Jessica Johnston RMA Social History Tobacco Use Types Packs/Day [...] file Legal Sex Female 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 Order placed in [facility] and [facility] t [facility] RMATION TECHNOLOGY ADVISOR documented in this encounter Plan of Treatment Not on file documented as of this encounter Visit Diagnoses Not on filedocumented in this encounter Care Teams Remote Control Assembler Relationship Specialty Start Date End Date Ravi Smith MD PCP - General 11/04/17 09/27/21 Aft, Kianna Machado MD PhD [address] [place] [address] Surgeon Surgical Oncology 11/22/17 Santiago Gilbert MD [address] [place] [address] Refueling [facility]man Gastroenterology 11/22/17 Dmitry Sanderson MD [address] [place] [address] Referring Physician Colon and Rectal Surgery 12/03/1805/06 Abbi Ventura MD [address] [place] [address] [address] [place] [address] Medical Oncologist/Milk Receiver Medical Oncology 12/03/18 Montse Thompson MD [address] [place], [place] [id number] Consulting Physician Gynecologic Oncology 12/03/18 Lela Hardy MD PhD [address] [place] [address] Radiation Oncologist Radiation Oncology 12/23/18 Aft, Kianna Machado MD PhD [address] [place] [address] Surgeon Surgical Oncology 12/23/18 09/17/21 documented as of this encounter
--- OUTSIDE RECORDS SUMMARY | 2024-04-24 13:43 | XMS_ITS | Encounter Summary ---
Author Organization [facility] Address [address] [facility] [address] [place] [address] Phone Care Team Providers Care Director Of Surgery Name Role Phone Hugo Smith MD Primary Care Provider [phone] Aft, Tony Machado MD PhD Unavailable Santiago Gilbert MD Unavailable [phone] Nicole López MD Unavailable [phone] Birdie Ventura MD Unavailable Montse Thompson MD Unavailable [phone] Lela Hardy MD PhD Unavailable [phone] Aft, Tony Machado MD PhD Unavailable [phone] Encounter Details Date Type Department Care Team (Late st Contact Info) Description 03/02/2019 4:10 PM CDT Office Visit [facility] Obstetrics and Gynecology [address] [facility] 13th [place] [address] [place] [id number] Montse Thompson MD [address] [facility] [phone] [place] [address] 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); Malignant neoplasm of upper-inner quadrant of left breast in female, 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); BRCA2 gene mutation positive in female Social [...] file 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 Gender Identity Not on file Sexual Orientation Not on file documented as of this encounter Last Filed Vital Signs Vital Sign Reading Time Taken Comments Blood Pressure 143/76 03/02/2019 4:41 PM CDT Pulse 102 03/02/2019 4:41 PM CDT Temperature 36.8 ??C (98.2 ??F) 03/02/2019 4:41 PM CD T Respiratory Rate 20 03/02/2019 4:41 PM CDT Oxygen Saturation 96% 03/02/2019 4:41 PM CDT Inhaled Oxygen Concentration - - Weight 105.4 kg (232 lb 4.8 oz) 03/02/2019 4:41 PM CDT Height 175.3 cm (5' 9.02 ) 03/02/2019 4:41 PM CD T Body Mass Index 34.29 03/02/2019 4:41 PM CDT documented in this encounter Progress Notes * Montse Thompson MD - 03/02/2019 12:00 AM CDT PATIENT: ALEAH GERBER : 1955 FARHAT: 03/02/2019 REASON FOR VISIT: Postoperative visit #1 for BRCA2 mutation. HISTORY OF PRESENT ILLNESS: [...] endometrial stripe of 3 mm. The patient was counseled for exam under anesthesia, robotic-assisted total laparoscopic hysterectomy, bilateral salpingo-oophorectomy, which occurred on 02/13/2019. The patient had an unremarkable postoperative course. The patient presents today for her first postoperative visit. The patient felt like her insides were falling out for the first 10 days after surgery. The patient feels for the last 48 hours it has improved. She is taking Tylenol and ibuprofen every 6 hours concurrently. The patient does complain ofsome fatigue. She has shortness of breath with exertion. The patient has some abdominal bloating. She is moving her bowels with regularity. She also is having some depression. The patient also felt some more intense hot flashes which last less than a minute. The patient had 1 day of vaginal spotting. Otherwise, she denies any pelvic pain, pelvic pressure, changes in or GI habits. PAST MEDICAL HISTORY/REVIEW OF SYSTEMS: Unchanged from November 2018 except for the above updates. PHYSICAL EXAMINATION: General Appearance: The patient is a well-developed, well-nourished female in no acute distress. Vital Signs: Her blood pressure is 143/76, pulse is 102, respirations are 20. Her weight is 232 pounds which is a decrease of 3 pounds from her last visit on 02/13/2019. HEENT: Atraumatic, normocephalic, PERRLA, EOMI, EENT: Within normal limits. Neck is supple, withoutthyromegaly or JVD. LN Survey: No supraclavicular, inguinal, or femoral lymphadenopathy. Lungs: Clear to auscultation bilaterally. Heart: Regular rate and rhythm. Positive S1/S2. Breasts: Deferred. Back: No CVA or paraspinal tenderness. Abdomen: Soft, nontender, nondistended, obese. She has well-healing robotic incisions. Extremities: No clubbing, cyanosis, or edema. Neurologic: The patient is awake, alert, and oriented x 3. Pelvic Exam: External genitalia: Within normal limits. Urethra: Without masses or tenderness. Urethral meatus: Without any lesions or prolapse. Bladder: No masses or tenderness. Vulva: Normal. Speculum Exam: The patient has some minimal old blood in the vault. Her vaginal cuff is completely intact. Bimanual: Cervix, uterus and adnexa are surgically absent. No palpable masses, tenderness, or nodularity appreciated. Rectovaginal: Confirmatory. Guaiac is negative. ASSESSMENT AND PLAN: A 63-year-old female status post risk-reducing surgery secondary to a BRCA2 mutation. 1. 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 Otherwise, there is no evidence of cancer. 2. Breast cancer: The patient is under the care of our medical oncologists here. 3. Colon cancer: The patient is also under the care of a medical oncologist. 4. Follow-up is in 4 weeks' time. ELECTRONICALLY SIGNED - 03/03/2019 07:41 PM Premal Dawit Thompson M.D. Professor, Department of Obstetrics and Gynecology Director of Gynecological Oncology Clinical Research Division of Gynecologic Oncology [facility] [id number] cc: BIRDIE VENTURA M.D. / TONY BUNCH MD / HUGO SMITH MD / / NICOLE LÓPEZ MD / MELIZA JENNINGS MD / / 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)- Primary Malignant neoplasm 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, estrogen receptor negative (HCC) BRCA2 gene mutation positive in female documented in this encounter Discontinued Medications Medication Sig Discontinue Reason Start Date End Da te oxyCODONE (ROXICODONE) 5 mg immediate release tabletIndications:Pain Take 1 tablet (5 mg total) by mouth every 4 (four) hours as needed for pain Therapy completed 02/14/2019 03/02/2019 desoximetasone (TOPICORT) 0.25 % creamIndications:Malign ant neoplasm of upper-inner quadrant of left breast in female, estrogen receptor negative (HCC) Apply to affected area every night prior to vanicream Therapy completed 01/07/2019 03/02/2019 documented as of this encounter Care Teams Director Of Surgery Relationship Specialty Start Date End Date Hugo Smith MD PCP - General 11/04/17 09/27/21 Tony Bunch MD PhD [address] [place], [place] [id number] Surgeon Surgical Oncology 11/22/17 Santiago Gilbert MD [address] [place], [place] [id number] Blow Pit Operator Gastroenterology 11/22/17 Nicole López MD [address] [place], [place] [id number] Referring Physician Colon and Rectal Surgery 12/03/1805/06 Birdie Ventura MD [address] [place] [address] [address] [place] [address] Medical Oncologist/Plating Tank Operator Apprentice Medical Oncology 12/03/18 Montse Thompson MD [address] [place] [address] [address] [place] [address] Consulting Physician Gynecologic Oncology 12/03/18 Lela Hardy MD PhD [address] [place] [address] [address] [place] [address] Radiation Oncologist Radiation Oncology 12/23/18 Aft, Tony Machado MD PhD [address] [place] [address] [address] [place], [place] [phone] Surgeon Surgical Oncology 12/23/18 09/17/21 documented as of this encounter
--- OUTSIDE RECORDS SUMMARY | 2024-04-24 13:43 | XMS_ITS | Encounter Summary ---
Author Organization [facility] Address [address] [place] [address] Care Team Providers Care Lithographic General Worker Name Role Phone Ravi Smith MD Primary Care Provider [phone] Aft, Kianna Machado MD PhD Unavailable [phone] Santiago Gilbert MD Unavailable [phone] Dmitry Sanderson MD Unavailable [phone] Birdie Ventura MD Unavailable Montse Thompson MD Unavailable [phone] Lela Hardy MD PhD Unavailable [phone] Aft, Kianna Machado MD PhD Unavailable [phone] Reason for Referral * Diagnostic Imaging (Routine) - Closed Specialty Diagnoses / Procedures Referred By [facility] Referred To Contact Radiology Diagnoses Malignant neoplasm of upper-inner quadrant of left breast in female, estrogen receptor negative (HCC) Procedures MRI Breast Bilateral W WO Contrast Birdie Ventura MD [address] [facility] [address] [place] [address] Phone: tel: fax: [facility] Referral ID Status Reason Start Date Expiration Date Visits Re quested Visits Authorized [id number] Closed 04/01/2019 10/10/2020 1 1 LID FITTER Reason for Visit * Diagnostic Imaging (Routine) - Closed Specialty Diagnoses / Procedures Referred By [facility] Referred To Contact Radiology Diagnoses Malignant neoplasm of upper-inner quadrant of left breast in female, estrogen receptor negative (HCC) Procedures MRI Breast Bilateral W WO Contrast Birdie Ventura MD [address] [facility] [address] [place] [address] Phone: tel: fax: [facility] Referral ID Status Reason Start Date Expiration Date Visits Re quested Visits Authorized [id number] Closed 04/01/2019 10/10/2020 1 1 Encounter Details Date Type Department Care Team (Latest Contact Info) Description 04/23/2019 10:59 AM DECK LID FITTER - 04/23/2019 11:59 PM DECK LID FITTER Hospital Encounter [facility] [address] [place] [address] Birdie Ventura MD [address] [facility] [address] [place] [address] Malignant neoplasm of upper-inner quadrant of left [...] on file Legal Sex Female 1:06 AM DECK LID FITTER Gender Identity Not on file Sexual Orientation [...] CONTRAST Schedule Routine, Read Routine (OP Routine) 04/23/2019 12:03 PM DECK LID FITTER Malignant neoplasm of upper-inner quadrant of left breast in female, 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) documented in this encounter Results * MRI Breast Bilateral W WO Contrast (04/23/2019 12:03 PM DECK LID FITTER) Anatomical Region Laterality Modality Breast Bilateral Magnetic Resonan ce 04/23/2019 1:49 PM DECK LID FITTER Impressions 04/23/2019 2:18 PM DECK LID FITTER 1. Stable LEFT breast conservation changes. ??No suspicious abnormality in EITHER breast. 2. Annual screening mammography is recommended. ??The patient will be due for screening in August 2019. 3. Annual breast MRI can be performed as an adjunct to mammography if clinically indicated. OVERALL FINAL ASSESSMENT: BI-RADS Category 2: Benign. Dictated by: Alejandrina Burden M.D. The radiology attending physician has personally reviewed this study, and had reviewed and/or edited this written report and agrees with it. Electronically signed by: Nayeli Hughes M.D. Narrative 04/23/2019 2:18 PM DECK LID FITTER ALEAH Rashad GERBER, : 1955 (63 years), , Ordering Provider: BIRDIE VENTURA EXAMINATION: 1. MRI EXAMINATION OF THE BREASTS WITH AND WITHOUT CONTRAST 2. 3D POST PROCESSING ON A DEDICATED 3D WORKSTATION HISTORY: High-risk Screening. ??63-year-old woman with BRCA2 mutation and a personal history of invasive ductal carcinoma in the LEFT breast status post breast conservation therapy with initial lumpectomy in January 2018 and re-excision in November 2018 and completion of radiation therapy in February 2019. ?? DATE OF LAST MENSTRUAL PERIOD: Postmenopausal TECHNIQUE: MRI examination of the breasts per breast tumor protocol with and without gadolinium contrast. ??A dedicated breast imaging coil was used. ??The images were transferred to a breast CAD system for 3D post processing and contrast kinetics analysis. ?? Contrast: Dotarem, 20 ml COMPARISON: Breast MRI dated 11/26/2017. ??Correlation to mammogram dated 08/11/2018. BREAST COMPOSITION: Heterogeneous fibroglandular tissue BACKGROUND PARENCHYMAL ENHANCEMENT: Moderate, asymmetric (RIGHT > LEFT) FINDINGS: There are changes of breast conservation therapy in the LEFT breast. No suspicious mass or non-mass enhancement in EITHER breast. No abnormally enlarged lymph nodes are identified in the visualized portions of EITHER axilla. Procedure Note Nayeli Hughes MD - 04/23/2019 ALEAH GERBER, : 1955 (63 years), , Ordering Provider: BIRDIE VENTURA EXAMINATION: 1. MRI EXAMINATION OF THE BREASTS WITH AND WITHOUT CONTRAST 2. 3D POST PROCESSING ON A DEDICATED 3D WORKSTATION HISTORY: High-risk Screening. 63-year-old woman with BRCA2 mutation and a personal history of invasive ductal carcinoma in the LEFT breast status post breast conservation therapy with initial lumpectomy in January 2018 and re-excision in November 2018 and completion of radiation therapy in February 2019. DATE OF LAST MENSTRUAL PERIOD: Postmenopausal TECHNIQUE: MRI examination of the breasts per breast tumor protocol with and without gadolinium contrast. A dedicated breast imaging coil was used. The images were transferred to a breast CAD system for 3D post processing and contrast kinetics analysis. Contrast: Dotarem, 20 ml COMPARISON: Breast MRI dated 11/26/2017. Correlation to mammogram dated 08/11/2018. BREAST COMPOSITION: Heterogeneous fibroglandular tissue BACKGROUND PARENCHYMAL ENHANCEMENT: Moderate, asymmetric (RIGHT > LEFT) FINDINGS: There are changes of breast conservation therapy in the LEFT breast. No suspicious mass or non-mass enhancement in EITHER breast. No abnormally enlarged lymph nodes are identified in the visualized portions of EITHER axilla. IMPRESSION: 1. Stable LEFT breast conservation changes. No suspicious abnormality in EITHER breast. 2. Annual screening mammography is recommended. The patient will be due for screening in August 2019. 3. Annual breast MRI can be performed as an adjunct to mammography if clinically indicated. OVERALL FINAL ASSESSMENT: BI-RADS Category 2: Benign. Dictated by: Alejandrina Burden M.D. The radiology attending physician has personally reviewed this study, and had reviewed and/or edited this written report and agrees with it. Electronically signed by: Nayeli Hughes M.D. Birdie Ventura MD IM MRI PROCEDURES Final Result [...] Once in imaging, contrast, Starting on Bonnie 04/23/19 at 1140, For 1 dose Given 04/23/2019 11:58 AM DECK LID FITTER 20 mL documented in this encounter Orders Medications Ordered That Jefferson ht Not Have Been Administered Count Last Ordered Date First Ordered Date gadoterate meglumine (DOTARE M) 0.5 mmol/mL injection 20 mL 1 04/23/2019 documented in this encounter Care Teams Lithographic General Worker Relationship Specialty Start Date End Date Ravi Smith MD PCP - General 11/04/17 09/27/21 Aft, Kianna Machado MD PhD [address] [place] [address] Surgeon Surgical Oncology 11/22/17 Santiago Gilbert MD [address] [place] [address] Core Setter Gastroenterology 11/22/17 Dmitry Sanderson MD [address] [place] [address] Referring Physician Colon and Rectal Surgery 12/03/1805/06 Birdie Ventura MD [address] [facility] [address] [place] [address] Medical Oncologist/Accounting Recruiter Medical Oncology 12/03/18 Montse Thompson MD [address] [facility] [address] [place], [place] [id number] Consulting Physician Gynecologic Oncology 12/03/18 Lela Hardy MD PhD [address] [place] [address] [address] [place], [place] [id number] Radiation Oncologist Radiation Oncology 12/23/18 Aft, Kianna Machado MD PhD [address] [facility] [address] [place], [place] [id number] Surgeon Surgical Oncology 12/23/18 09/17/21 documented as of this encounter
--- OUTSIDE RECORDS SUMMARY | 2024-04-24 13:43 | XMS_ITS | Encounter Summary ---
Author Organization [facility] Address [address] [place] [address] Phone Care Team Providers Care Director Of Personnel Name Role Phone Ravi Smith MD Primary Care Provider [phone] Aft, Kianna Machado MD PhD Unavailable [phone] Santiago Gilbert MD Unavailable [phone] Dmitry Sanderson MD Unavailable [phone] Abbi Ventura MD Unavailable Montse Thompson MD Unavailable [phone] Lela Hardy MD PhD Unavailable [phone] Aft, Kianna Machado MD PhD Unavailable [phone] Reason for Visit * Sleep Medicine (Routine) - Closed Specialty Diagnoses / Procedures Referred By Contac t Referred To Contact Diagnoses Hypersomnia, unspecified Procedures Portable/Home Sleep Study Mary Garcia MD [address] [place] [address] Phone: tel: fax: [facility] (All Locations) Referral ID Status Reason Start Date Expiration Date Visits Re quested Visits Authorized [id number] Closed 04/27/2019 11/05/2020 1 1 Encounter Details Date Type Department Care Team (Latest Contact Info) Description 05/29/2019 11:00 AM CARPENTRY FOREMAN Procedure visit [facility] Neuro Sleep [address] 6th [address] [place] [address] Obstructive sleep apnea Social History Tobacco Use Types Packs/Day Years [...] on file Legal Sex Female 1:06 AM CARPENTRY FOREMAN Gender Identity Not on file Sexual Orientation Not on file documented as of this encounter Progress Notes * Dat Castañeda RPSGT - 05/29/2019 11:00 AM CST SLEEP [facility]ICINE CENTER DEVICE LOAN AGREEMENT IAleah am borrowing the following device. Cristina Rodney One - Serial # . I understand that this is a temporary loaner and the device must be returned by 06/01/2019. If an extension is needed or have any questions or concerns, I will contact the Sleep Center at [phone]. If I fail to contact or return the device, I understand I will be charged for the cost in full. By signing this form, I have read and understand the agreement: Patient Signature: Witness Signature: Date: 05/29/2019 ENTRY FOREMAN * Alexandre Lynch RPSGT - 05/29/2019 11:00 AM CSTAssociated Order(s): Portable/Home Sleep Study Images from the original note were not included. Portable/Home Sleep Study Date/Time: 05/29/2019 10:00 PM Performed by: Mary Garcia MD Authorized by: Mary Garcia MD HOME SLEEP APNEA TEST (HSAT) REPORT Patient: Aleah Gerber : 1955 Date of Service: 05/29/2019 Home Sleep Apnea Test (Type III) Clinical History: 63 yo F with hypertension and diabetes who presents with snoring and awakening gasping. Height: 69.0 inches; Weight: 239.0 lbs; BMI: 35.3 kg/ Description of Procedures: Unless otherwise noted, respiratory events were scored in accordance with recommended parameters as outlined in the AASM Manual for the Scoring of Sleep and Associated Events, Version 2.5. Hypopneas were scored in accordance with acceptable parameters as outlined in Chapter IX, Part 1: HSAT Utilizing Respiratory Flow and/or Effort Parameters, Category H., Section 1B. Additionally, hypopnea count and FLEX/AHI utilizing recommended scoring parameters as outlined in Category H., Section 1A, will be reported separately in this report. This study was performed using a [employer] Night One portable monitoring unit, serial number [id number], a type 3 portable monitoring device. Variables monitored included nasal/oral pressure transduced airflow (PTAF), single respiratory effort (thoracic belt), snoring (derived from PTAF sensor), body position, and pulse oximetry. Lights Out occurred at 11:01:45 PM and Lights On occurred at 10:24:27 AM. Total recording time was 682.7 minutes. Monitoring time is 678.0 minutes. Summary: FLEX/AHI (4%) 2.6 NEW 0.0 DONAL (4%) 2.3 SpO2 West 87% Respiratory Event Summary Heart Rate Summary Oximetry Summary Event Type Index (#/hour) Total # of Events Mean HR: 70.9 (BPM) Duration (minutes) % Monitoring Time Obstructive Apnea 0.1 1 Highest HR: 97 (BPM) 90%- 100% 671.70 99.07 Central Apnea 0.0 0 Lowest HR: 55 (BPM) 80%- 89% 4.50 0.66 Mixed Apnea 0.0 0 Positional Summary 70% - 79% 0.00 0.00 Hypopnea (4%) 2.5 28 Supine Non-Supine 60% - 69% 0.00 0.00 Total (4%) 2.6 29 % of MT 59.47 40.53 50% - 59% 0.00 0.00 Percentage of snoring 82.9 % FLEX (3%) 8.9 8.08 <89% 0.80 0.12 Additional Reporting Data: FLEX/AHI (3%) 8.6 Hypopnea Index (3%) 8.5 Total # of Hypopneas (3%) 96 DONAL (3%) 9.0 Respiratory event index (FLEX) is equivalent to apnea/hypopnea index (AHI) for the purposes of HSAT.Monitoring Time is calculated as TRT minus any artifact or wake time. For the purposes of this study, wake time was reported by the patient through use of sleep diary. Oxygen Desaturation Index (DONAL)is the index of oxygen desaturations occurring during monitoring time. DONAL (3%) indicates 3% or greater oxygen desaturation. DONAL (4%) indicates 4% or greater oxygen desaturation. Limitations of the study: 1. A sleep EEG was not recorded; therefore, the actual amount of time spent in sleep, stages of sleep and respiratory events associated with arousals cannot be determined by this study. 2. All indexes are computed against monitoring time, not total sleep time. For this reason, the degree of severity may be underestimated. Interpretation: Based on an FLEX (3% desaturation definition) of 8.1, there is mild obstructive sleep apnea. (The FLEX with 4% desaturation definition was in normal range.) The severity of sleep disordered breathing can be underestimated on home sleep studies as actual sleep time is not recorded. Diagnosis: G47.33 Obstructive sleep apnea By signing this report, I certify that I have read this home sleep test, edited the report, and agree with the description of findings and interpretation contained in this written report. Mary Garcia MD instrument lens inspector Diplomate in Sleep Medicine, [place] [employer] ENTRY FOREMAN documented in this encounter Plan of Treatment Not on file documented as of this encounter Procedures Procedure Name Priority Date/Time Associated Diagnosis Comments PORTABLE/HOME SLEEP STUDY Routine 05/29/2019 11:00 AM CARPENTRY FOREMAN Obstructive sleep apnea documented in this encounter Results * PORTABLE/HOME SLEEP STUDY (05/29/2019 11:00 AM CARPENTRY FOREMAN) Narrative Mary Garcia MD - 05/29/2019 11:00 AM CARPENTRY FOREMAN Mary Garcia MD ? 06/05/2019 ??2:24 PM Portable/Home Sleep Study Date/Time: 05/29/2019 10:00 PM Performed by: Mary Garcia MD Authorized by: Mary Garcia MD us Mary Garica MD SLEEP CENTER ORDERABLES Bethanie l Result documented in this encounter Visit Diagnoses Diagnosis Obstructive sleep apnea Obstructive sleep apnea (adult) (pediatric) documented in this encounter Care Teams Director Of Personnel Relationship Specialty Start Date End Date Ravi Smith MD PCP - General 11/04/17 09/27/21 Aft, Kianna Machado MD PhD [address] [place] [address] Surgeon Surgical Oncology 11/22/17 Santiago Gilbert MD [address] [place] [address] Sheet Metal Foreman Gastroenterology 11/22/17 Dmitry Sanderson MD [address] [place] [address] Referring Physician Colon and Rectal Surgery 12/03/1805/06 Abbi Ventura MD [address] [facility] [address] [place] [address] Medical Oncologist/Policy Services Representative Medical Oncology 12/03/18 Montse Thompson MD [address] [place] [address] Consulting Physician Gynecologic Oncology 12/03/18 Lela Hardy MD PhD [address] [facility] [address] [place] [address] Radiation Oncologist Radiation Oncology 12/23/18 Aft, Kianna Machado MD PhD [address] [facility] [address] [place] [address] Surgeon Surgical Oncology 12/23/18 09/17/21 documented as of this encounter
--- OUTSIDE RECORDS SUMMARY | 2024-04-24 13:43 | XMS_ITS | Encounter Summary ---
Author Organization [facility] Address [address] [place] [address] Phone Care Team Providers Care Rn Trauma Name Role Phone Ravi Smith MD Primary Care Provider [phone] Aft, Kianna Machado MD PhD Unavailable [phone] Santiago Gilbert MD Unavailable [phone] Dmitry Sanderson MD Unavailable [phone] Abbi Ventura MD Unavailable Montse Thompson MD Unavailable [phone] Lela Hardy MD PhD Unavailable Aft, Kianna Machado MD PhD Unavailable [phone] Reason for Visit * Reason Comments Follow-up Encounter Details Date Type Department Care Team (Late st Contact Info) Description 06/04/2019 9:35 AM DIRECTOR STUDENT UNION Office Visit [facility] Surgery [address] [facility] [address] 5th [place] [address] [place] [address] Jessica Swanson, [facility] [address] [address] History of breast cancer (Primary Dx); BRCA2 gene mutation positive in female Social [...] on file Legal Sex Female 1:06 AM DIRECTOR STUDENT UNION Gender Identity Not on file Sexual Orientation Not on file documented as of this encounter Last Filed Vital Signs Vital Sign Reading Time Taken Comments Blood Pressure - - Pulse - - Temperature - - Respiratory Rate - - Oxygen Saturation - - Inhaled Oxygen Concentration - - Weight 108.4 kg (239 lb) 06/04/2019 9:31 AM DIRECTOR STUDENT UNION Height 175.3 cm (5' 9 ) 06/04/2019 9:31 AM DIRECTOR STUDENT UNION Body Mass Index 35.29 06/04/2019 9:31 AM DIRECTOR STUDENT UNION documented in this encounter Progress Notes * Jessica Swanson, MARKETING DATA SPECIALIST - 06/04/2019 9:35 AM CST Section of Surgical Oncology and Endocrinology [facility] of [address], [address], [place] [address] - NAME: Aleah Gerber : 1955 DATE: 06/04/19 CHIEF COMPLAINT: Postop appointment HISTORY OF PRESENT ILLNESS: The patient is a 63 y.o. female who returns today.She had undergone a colonoscopy on 10/22/17 which found a 4 x 5 cm mass in the proximal descending colon. Pathology was consistent with adenocarcinoma. She then underwent a CT scan at an outside facility in October of 2017 where they noted an abnormal appearing mass in her left breast measuring 1.8 cm. She then underwent diagnostic imaging on 11/04/2017 with a noted a 1.8 cm mass at the 9 o'clock position of the left breastand a satellite lesion. She then underwent image guided biopsy on 11/05/2017 which demonstrated invasive ductal carcinoma, ER/NC negative, HER 2 negative. She underwent genetic testing was found to be B RCA 2 positive. On 12/27/2017 she underwent a left hemicolectomy for 6.5 centimeter low tumor of theleft colon pT4b with no evidence of metastatic carcinoma. On 01/14/2018 she underwent needle localization partial mastectomy with sentinel lymph node biopsy. She opted not to undergo bilateral mastectomy secondary to her treatment for colon cancer. Her pathology was significant for a pT2, N0, triplenegative invasive ductal carcinoma with associated ductal carcinoma in situ. She had 0 of 3 positive lymph nodes. She then underwent adjuvant chemotherapy of FOLFOX for her colon cancer. She did havea reaction and ultimately declined the oxaliplatin. She then underwent 5 FU/LV. She then underwent Adriamycin and Cytoxan for her breast cancer. On 11/11/2018 she underwent a re-excision with demonstrated no residual disease. She then completed adjuvant radiation therapy. She also underwent hysterectomy and bilateral oophorectomy on 02/13/19. Today, she notes no mass on her breast self examination. She has a past medical history of Anemia, Anxiety, Asthma, At risk for sleep apnea, Breast cancer ([facility]) (2017), Breast cancer ([facility]) (2017), Colon cancer ([facility]), Colon cancer ([facility]) (2017), Colon polyps, COPD (chronic obstructive pulmonary disease) ([facility]), Depression, DVT (deep veinthrombosis) in (05/2017), DVT (deep venous thrombosis) ([facility]) (05/2018), Former smoker, History of ileus (12/2017), Hypercholesteremia, Hypertension, Leg swelling, Lower extremity edema,Memory loss, Mucositis, Obesity, Personal history of other medical treatment, Personal history of other medical treatment, SOB (shortness of breath), SOB (shortness of breath) (2018), TIA (transient i schemic attack) (2007), Type 2 diabetes mellitus ([facility]), and Vascular disease. She also has no past medical history of Acute respiratory failure requiring reintubation ([facility]), Awareness under anesthesia, Delayed emergence from general anesthesia, Diabetes mellitus type I ([facility]), Hard to intubate, Malignant hyperthermia, Motion sickness, Pneumothorax, PONV (postoperative nausea and vomiting), Postoperative delirium, Pseudocholinesterase deficiency, or Sleep apnea. Past Medical History: Diagnosis Date ??? Anemia ??? Anxiety ??? Asthma ??? At risk for sleep apnea Per assessment, STOP BANG=3. Pt reports her PCP wants to do a Sleep Study in the near future. ??? Breast cancer (CMS/HCC) 2018 left breast cancer ??? Breast cancer (CMS/HCC) 2018 ??? [...] Former smoker Quit 2016 ??? History of ileus 12/2017 ??? Hypercholesteremia [...] 2/2 chemotherapy ??? TIA (transient ischemic attack) 2008 ??? Type 2 diabetes mellitus (CMS/HCC) ??? [...] Breast Needle Localization partial mastectomy (L), Biopsy [place] Lymph Node With Lymphoscintigraphy (L), Insertion Port A Cath (R) with ultrasound and fluroscopy ??? PORTACATH PLACEMENT 01/2018 right upper chest ??? PORTACATH PLACEMENT Right 2018 ??? TUBAL LIGATION 1992 ??? VAGINAL DELIVERY Social History Socioeconomic History ??? Marital status: Spouse name: None ??? Number of children: None ??? Years of education: None ??? Highest education level: None Occupational History ??? None Social Needs ??? Financial resource strain: None ??? Food insecurity: Worry: None Inability: None ??? Transportation needs: Medical: None Non-medical: None Tobacco Use ??? Smoking status: Former Smoker Packs/day: 1.00 Types: Cigarettes Start date: 1972 Last attempt to quit: 2015 Years since quittin.0 ??? Smokeless tobacco: Never Used Substance and Sexual Activity ??? Alcohol use: Not Currently Frequency: Monthly or less Comment: socially ??? Drug use: Never ??? Sexual activity: Defer Lifestyle ??? Physical activity: Days per week: None Minutes per session: None ??? Stress: None Relationships ??? Social connections: Talks on phone: None Gets together: None Attends moravian service: None Active member of club or organization: None Attends meetings of clubs or organizations: None Relationship status: None ??? Intimate partner violence: Fear of current or ex partner: None Emotionally abused: None Physically abused: None Forced sexual activity: None Other Topics Concern ??? None Social History Narrative ??? None Family History Problem Relation Age of Onset ??? Prostate cancer Father 60 ??? Pancreatic cancer Sister 40 ??? Other (pancreatic cancer) Sister ??? Liver cancer Maternal Grandmother 80 ??? Heart attack Mother 70 ??? Stent Mother ??? Heart attack Maternal Grandfather ??? Heart attack Paternal Grandmother ??? Anesthesia problems Neg Hx Prior to Admission medications Medication Sig Start Date End Date Taking? Authorizing Provider acetaminophen (TYLENOL) 500 mg tablet Take 1,000 mg by mouth every 6 (six) hours as needed for painYes Historical Provider, albuterol HFA (PROVENTIL HFA,VENTOLIN HFA,PROAIR HFA) 90 mcg/actuation inhaler Inhale 2 puffs every6 (six) hours as needed for wheezing Yes Historical Provider, ALPRAZolam (XANAX) 0.25 mg tablet Take 0.25 mg by mouth 3 (three) times a day as needed for anxiety11/07/17 Yes Historical Provider, atorvastatin (LIPITOR) 20 mg tablet Take 20 mg by mouth nightly 02/21/18 Yes Historical Provider, biotin 1 mg capsule Take 1 tablet by mouth every morning Yes Historical Provider, cholecalciferol (VITAMIN D3) 2,000 unit capsule Take 2,000 Units by mouth nightly 10/04/17 Yes Historical Provider, desoximetasone (TOPICORT) 0.25 % cream APPLY CREAM EXTERNALLY TO AFFECTED AREA EVER NIGHT PRIOR TO VANICREAM 04/05/19 Yes Historical Provider, dulaglutide (TRULICITY) 0.75 mg/0.5 mL pen injector Inject 0.75 mg under the skin every 7 days Saturday Yes Historical Provider, fluticasone propion-salmeterol (ADVAIR DISKUS) 250-50 mcg/dose diskus inhaler Inhale 1 puff 2 (two)times a day Rinse mouth with water after use. Do not swallow. Patient taking differently: Inhale 1 puff 2 (two) times a day Rinse mouth with water after use. Do not swallow. 02/05/19 Yes Cristobal Dong MD hydroCHLOROthiazide (HYDRODIURIL) 12.5 mg tablet Take 12.5 mg by mouth every morning 02/24/18 Yes Historical Provider, magnesium oxide 400 mg magnesium capsule Take 1 tablet by mouth 2 (two) times a day Yes Historical Provider, mecobalamin, vitamin B12, 1,000 mcg tablet,disintegrating Place under the tongue every morning Yes Historical Provider, nitrofurantoin monohydrate (MACROBID) 100 mg capsule TAKE 1 CAPSULE BY MOUTH EVERY 12 HOURS WITH FOOD FOR 5 DAYS 03/23/19 Yes Historical Provider, potassium chloride ER (KLOR-CON) 10 mEq CR tablet Take 1 tablet/capsule (10 mEq total) by mouth daily 04/01/19 Yes Abbi Ventura MD sertraline (ZOLOFT) 50 mg tablet Take 50 mg by mouth nightly 10/23/18 Yes Historical Provider, sitaGLIPtin-metformin (JANUMET XR) 100-1,000 mg tablet, ER multiphase 24 hr Take 1 tablet by mouth daily with dinner Yes Historical Provider, Allergies Allergen Reactions ??? Oxaliplatin Swollen tongue Throat swelling ??? Tetanus Vaccines And Toxoid Swelling and Rash PHYSICAL EXAMINATION: GENERAL: Well-developed, well-nourished female in no acute distress. EYES: Extraocular movements intact. Sclerae - no jaundice. NOSE AND THROAT: Mucosal membranes intact. SKIN: No concerning lesions or skin changes noted on face, neck, or trunk. NECK: No obvious masses. HEART: Regular rate. No JVD noted LUNGS: No shortness of breath noted. LYMPHATIC SYSTEM: No concerning cervical, supraclavicular, or axillary lymphadenopathy. BILATERAL BREAST EXAM: The right breast has no mass, nipple discharge, palpable axillary mass, skinchanges skin dimpling. She is well incision the upper portion of her chest from her prior port. Theleft breast has a well-healed incision with a well-healed axillary incision. She has no evidence oflocal recurrence, no mass, no palpable axillary mass. ABDOMEN: Soft, nontender with no palpable masses. MUSCULOSKELETAL: No evidence of rib, long bone, or spine pain. EXTREMITIES: Full range of motion in both arms. No lymphedema. NEUROLOGICAL: No focal neurologic signs; normal gait. IMAGING: I reviewed her breast MRI dated 05/04/2019 which demonstrated: FINDINGS: ?? There are changes of breast conservation therapy in the LEFT breast. No suspicious mass or non-mass enhancement in EITHER breast. ?? No abnormally enlarged lymph nodes are identified in the visualized portions of EITHER axilla. ?? IMPRESSION: ?? 1. Stable LEFT breast conservation changes. No suspicious abnormality in EITHER breast. ?? 2. Annual screening mammography is recommended. The patient will be due for screening in August 2019. ?? 3. Annual breast MRI can be performed as an adjunct to mammography if clinically indicated. ? OVERALL FINAL ASSESSMENT: BI-RADS Category 2: Benign. ASSESSMENT: I have told the patient that she is doing well without abnormalities noted by imaging. PLAN: I have recommended she continue her monthly breast exams and will notify us if she identifiesany changes or problems. She will follow up in she will follow-up in August when she will undergo bilateral diagnostic mammograms. We will then follow up with her with serial MRI in 6 months. She knows to call with questions. Jessica Swanson, MSN, HOTEL OPERATION MANAGER- Endocrine and Oncology Surgery I have reviewed the history and physical, social history and surgical history and I concur with thefindings. Kianna Bunch M.D. septic pump truck driver, Endocrine Oncology surgery Cosigned by Kianna Bunch MD PhD at 06/04/2019 10:33 AM DIRECTOR STUDENT UNION CTOR STUDENT UNION CTOR STUDENT UNION documented in this encounter Plan of Treatment Not on file documented as of this encounter Visit Diagnoses Diagnosis History of breast cancer- Primary Personal history of malignant neoplasm of breast BRCA2 gene mutation positive in female documented in this encounter Care Teams Rn Trauma Relationship Specialty Start Date End Date Ravi Smith MD PCP - General 11/04/17 09/27/21 AileentKianna MD PhD [address] [place] [address] Surgeon Surgical Oncology 11/22/17 Santiago Gilbert MD [address] [place] [address] Carbon Brushes Assembler Gastroenterology 11/22/17 Dmitry Sanderson MD [address] [place] [address] Referring Physician Colon and Rectal Surgery 12/03/1805/06 Abbi Ventura MD [address] [place] [address] [address] [place] [address] Medical Oncologist/Sponge Hooker Medical Oncology 12/03/18 Montse Thompson MD [address] [place] [address] Consulting Physician Gynecologic Oncology 12/03/18 Lela Hardy MD PhD [address] [place] [address] Radiation Oncologist Radiation Oncology 12/23/18 Aft, Kianna Machado MD PhD [address] [facility] [address] [place], [place] [id number] Surgeon Surgical Oncology 12/23/18 09/17/21 documented as of this encounter
--- OUTSIDE RECORDS SUMMARY | 2024-04-24 13:43 | XMS_ITS | Encounter Summary ---
Author Organization [facility] Address [address] [place] [address] Phone Care Team Providers Care Cell Technician Name Role Phone Ravi Smith MD Primary Care Provider [phone] Aft, Kianna Machado MD PhD Unavailable [phone] Santiago Gilbert MD Unavailable [phone] Dmitry Sanderson MD Unavailable [phone] Abbi Ventura MD Unavailable Montse Thompson MD Unavailable Lela Hardy MD PhD Unavailable Aft, Kianna Machado MD PhD Unavailable [phone] Encounter Details Date Type Department Care Team (Late st Contact Info) Description 04/01/2019 10:00 AM WORK STATION SUPPORT SPECIALIST Clinical Support [facility] Oncology [address] [place] [address] Abbi Ventura MD [address] [place], [place] [id number] Vianey Miller, KAM [address] [place] [address] Malignant neoplasm of descending colon (CMS/HCC) Discharge [...] on file Legal Sex Female 1:06 AM WORK STATION SUPPORT SPECIALIST Gender Identity Not on file Sexual Orientation Not on file documented as of this encounter Discharge Disposition Disposition Code Departure Means Destination Discharge to home or self care documented in this encounter Plan of Treatment Not on file documented as of this encounter Procedures Procedure Name Priority Date/Time Associated Diagnosis Comments DIFFERENTIAL AUTO STAT 04/01/2019 10: 18 AM WORK STATION SUPPORT SPECIALIST Malignant neoplasm of descending colon (CMS/HCC) CBC WITH AUTO DIFFERENTIAL STAT 04/01/2019 10:18 AM WORK STATION SUPPORT SPECIALIST Malignant neoplasm of descending colon (CMS/HCC) MAGNESIUM STAT 04/01/2019 10:18 AM WORK STATION SUPPORT SPECIALIST Malignant neoplasm of descending colon (CMS/HCC) CEA Routine 04/01/2019 10:18 AM WORK STATION SUPPORT SPECIALIST Malignant neoplasm of descending colon (CMS/HCC) COMPREHENSIVE METABOLIC PANEL STAT 04/01/2019 10:18 AM WORK STATION SUPPORT SPECIALIST Malignant neoplasm of descending colon (CMS/HCC) documented in this encounter Results * Differential, auto (04/01/2019 10:18 AM WORK STATION SUPPORT SPECIALIST) Neutrophil abs 5.6 1.7 - 6.5 K/cumm [facility] Imm gran abs 0.0 0.0 - 0.1 K/cumm [facility] Lymphocyte abs 1.0 0.8 - 3.3 K/cumm [facility] Monocyte abs 0.4 0.2 - 0.8 K/cumm [facility] Eosinophil abs 0.3 0.0 - 0.5 K/cumm [facility] Basophil abs 0.1 0.0 - 0.1 K/cumm [facility] Neutrophil pct 75.8 % [facility] Comment: Interpretive Data Percent cell count reference ranges are not reported, since discordance with absolute values may lead to misinterpretation of CBC data. Current Interpretive Data was last revised on 2017. Imm gran pct 0.3 % [facility] Comment: Interpretive Data Percent cell count reference ranges are not reported, since discordance with absolute values may lead to misinterpretation of CBC data. Current Interpretive Data was last revised on 2017. Lymphocyte pct 14.0 % [facility] Comment: Interpretive Data Percent cell count reference ranges are not reported, since discordance with absolute values may lead to misinterpretation of CBC data. Current Interpretive Data was last revised on 2017. Monocyte pct 5.5 % [facility] Comment: Interpretive Data Percent cell count reference ranges are not reported, since discordance with absolute values may lead to misinterpretation of CBC data. Current Interpretive Data was last revised on 2017. Eosinophil pct 3.6 % [facility] Comment: Interpretive Data Percent cell count reference ranges are not reported, since discordance with absolute values may lead to misinterpretation of CBC data. Current Interpretive Data was last revised on 2017. Basophil pct 0.8 % [facility] Comment: Interpretive Data Percent cell count reference ranges are not reported, since discordance with absolute values may lead to misinterpretation of CBC data. Current Interpretive Data was last revised on 2017. Blood specimen (specimen) 04/01/2019 10:18 AM WORK STATION SUPPORT SPECIALIST 04/01/2019 10:18 AM WORK STATION SUPPORT SPECIALIST us Abbi Ventura MD LAB BLOOD ORDERABLES Final Resul t [facility] Department of Laboratories [place], [place] [id number] * (ABNORMAL) CBC with auto differential (04/01/2019 10:18 AM WORK STATION SUPPORT SPECIALIST) WBC 7.3 3.8 - 9.9 K/cumm [facility] Hgb 11.2(L) 11.9 - 15.5 g/dL [facility] Hct 33.6(L) 35.6 - 45.5 % [facility] Plt 156 150 - 400 K/cumm [facility] MPV 9.4 9.1 - 12.3 fL [facility] RBC 3.63(L) 3.90 - 5.20 M/cumm [facility] MCV 92.6 81.3 - 96.4 fL [facility] MCH 30.9 27.1 - 33.3 pg [facility] MCHC 33.3 32.3 - 35.7 g/dL [facility] RDW CV 13.8 11.1 - 14.9 % [facility] RDW SD 46.9 35.7 - 48.1 fL [facility] NRBC abs 0.00 0.00 - 0.01 K/cumm [facility] Blood specimen (specimen) 04/01/2019 10:18 AM WORK STATION SUPPORT SPECIALIST 04/01/2019 10:18 AM WORK STATION SUPPORT SPECIALIST Abbi Ventura MD LAB BLOOD ORDERABLES Final Resul t [facility] Department [place] [address] * Comprehensive metabolic panel (04/01/2019 10:18 AM WORK STATION SUPPORT SPECIALIST) Pathologist [facility] Sodium 142 135 - 145 mmol/L [facility] Potassium, pl 4.2 3.3 - 4.9 mmol/L [facility] Chloride 107 97 - 110 mmol/L [facility] CO2 27 22 - 32 mmol/L [facility] Anion gap 8 2 - 15 mmol/L [facility] BUN 24 8 - 25 mg/dL [facility] Creatinine 1.09 0.60 - 1.10 mg/dL [facility] Glucose 164 70 - 199 mg/dL [facility] Comment: Interpretive Data Fasting glucose [...] 2017. Calcium 9.5 8.5 - 10.3 mg/dL [facility] Bilirubin, total 0.2 0.1 - 1.2 mg/dL [facility] Protein, pl 7.1 6.5 - 8.5 g/dL [facility] Albumin 4.2 3.5 - 5.0 g/dL [facility] Alk phos 79 40 - 130 Units/L [facility] ALT 12 7 - 45 Units/L [facility] AST 17 10 - 45 Units/L [facility] Blood specimen (specimen) 04/01/2019 10:18 AM WORK STATION SUPPORT SPECIALIST 04/01/2019 10:18 AM WORK STATION SUPPORT SPECIALIST Abbi Ventura MD LAB BLOOD ORDERABLES Final Resul t Performing Organization Address [facility] de Phone Number [facility] Department [place] [address] * Magnesium (04/01/2019 10:18 AM WORK STATION SUPPORT SPECIALIST) Magnesium 1.8 1.4 - 2.5 mg/dL [facility] Blood specimen (specimen) 04/01/2019 10:18 AM WORK STATION SUPPORT SPECIALIST 04/01/2019 10:18 AM WORK STATION SUPPORT SPECIALIST Abbi Ventura MD LAB BLOOD ORDERABLES Final Resul t Performing Organization Address [facility] de Phone Number [facility] [place] [address] * CEA (04/01/2019 10:18 AM WORK STATION SUPPORT SPECIALIST) CEA 2.4 <=5.0 ng/mL [facility] Comment: Interpretative Data: Reference Range: Non-Smokers: 0.0 - 5.0 ng/mL Smokers: 0.0 ? 6.5 ng/mL This test was developed and its performance characteristics determined by the [facility] in a manner consistent with CLIA requirements. This test has not been cleared or approved by the U.S. Food and Drug Administration. Current interpretive data was last revised 2018. Blood specimen (specimen) 04/01/2019 10:18 AM WORK STATION SUPPORT SPECIALIST 04/01/2019 11:15 AM WORK STATION SUPPORT SPECIALIST us Abbi Ventura MD LAB BLOOD ORDERABLES Final Resul t [facility] Department [place] [address] documented in this encounter Visit Diagnoses Diagnosis 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) Malignant neoplasm of descending colon documented in this encounter Orders Appointment Requests Count Last Ordered Date Fi rst Ordered Date ONCBCN LAB APPOINTMENT 1 04/01/2019 documented in this encounter Care Teams Cell Technician Relationship Specialty Start Date End Date Ravi Smith MD PCP - General 11/04/17 09/27/21 Aft, Kianna Machado MD PhD [address] [place] [address] Surgeon Surgical Oncology 11/22/17 Santiago Gilbert MD [address] [place] [address] Dough Puncher Gastroenterology 11/22/17 Dmitry Sanderson MD [address] [place] [address] Referring Physician Colon and Rectal Surgery 12/03/1805/06 Abbi Ventura MD [address] [place] [address] [address] [place] [address] Medical Oncologist/Electrician Supervisor Airplane Medical Oncology 12/03/18 Montse Thompson MD [address] [place] [address] Consulting Physician Gynecologic Oncology 12/03/18 Lela Hardy MD PhD [address] [place] [address] [address] [place] [address] Radiation Oncologist Radiation Oncology 12/23/18 Aft, Kianna Machado MD PhD [address] [place] [address] [address] [place] [address] Surgeon Surgical Oncology 12/23/18 09/17/21 documented as of this encounter
--- OUTSIDE RECORDS SUMMARY | 2024-04-24 13:43 | XMS_ITS | Encounter Summary ---
Author Organization [facility] Address [address] [place] [address] Phone Care Team Providers Care Product Marketing Director Name Role Phone Ravi Smith MD Primary Care Provider [phone] Aft, Kianna Machado MD PhD Unavailable [phone] Santiago Gilbert MD Unavailable [phone] Dmitry Sanderson MD Unavailable [phone] Abbi Ventura MD Unavailable Montse Thompson MD Unavailable [phone] Lela Hardy MD PhD Unavailable [phone] Aft, Kianna Machado MD PhD Unavailable [phone] Encounter Details Date Type Department Care Team (Late st Contact Info) Description 04/07/2019 Telephone [facility] Oncology [address] [place] [phone] Fatemeh Zarate, RN Social History Tobacco Use [...] file Legal Sex Female 1:06 AM CORE LAYER MACHINE OPERATOR Gender Identity Not on file Sexual Orientation Not on file documented as of this encounter Miscellaneous Notes * Telephone Encounter - Fatemeh Zarate RN - 04/07/2019 10:21 AM CST ----- Message from Fatemeh Zarate RN sent at 04/06/2019 10:08 AM CORE LAYER MACHINE OPERATOR ----- Can you get colonoscopy report from [facility]? Per patient it was done sometime in the last6 months . Thanks Abbi Ventura 04/06/19 PS requested colonoscopy report. Waiting for fax. DB 04/06/19 Report received. Scanned into chart. Dr. Ventura reviewed. DB LAYER MACHINE OPERATOR LAYER MACHINE OPERATOR documented in this encounter Plan of Treatment Not on file documented as of this encounter Visit Diagnoses Not on filedocumented in this encounter Care Teams Product Marketing Director Relationship Specialty Start Date End Date Ravi Smith MD PCP - General 11/04/17 09/27/21 Aft, Kianna Machado MD PhD [address] [place] [address] Surgeon Surgical Oncology 11/22/17 Santiago Gilbert MD [address] [place] [address] Brake Reliner Gastroenterology 11/22/17 Dmitry Sanderson MD [address] [place] [address] Referring Physician Colon and Rectal Surgery 12/03/1805/06 Abbi Ventura MD [address] [facility] [address] [place] [address] Medical Oncologist/Licensed Marriage And Family Therapist Medical Oncology 12/03/18 Montse Thompson MD [address] [facility] [place], [place] [id number] Consulting Physician Gynecologic Oncology 12/03/18 Lela Hardy MD PhD [address] [place] [address] [address] [place], [place] [id number] Radiation Oncologist Radiation Oncology 12/23/18 Aft, Kianna Machado MD PhD [address] [place] [address] [address] [place], [place] [id number] Surgeon Surgical Oncology 12/23/18 09/17/21 documented as of this encounter
--- OUTSIDE RECORDS SUMMARY | 2024-04-24 13:43 | XMS_ITS | Encounter Summary ---
Author Organization [facility] Address [address] [place] [address] Phone Care Team Providers Care Cutter Aluminum Sheet Name Role Phone Ravi Smith MD Primary Care Provider [phone] Aft, Kianna Machado MD PhD Unavailable [phone] Santiago Gilbert MD Unavailable [phone] Dmitry Sanderson MD Unavailable [phone] Abbi Ventura MD Unavailable Montse Thompson MD Unavailable [phone] Lela Hardy MD PhD Unavailable [phone] Aft, Kianna Machado MD PhD Unavailable [phone] Encounter Details Date Type Department Care Team (Late st Contact Info) Description 06/03/2019 Telephone [facility] Surgery [address] [facility] Advanced Medicine 5th [place] [address] [place] [address] Jessica Swanson, [facility] [address] [id number] Social History Tobacco Use Types Packs/Day Years [...] on file Legal 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 Gerber sent a portal message about her appointment for June 04. It was cancelled in the system, and she wants to be seen. The appointment will be rescheduled. TRIMMER documented in this encounter Plan of Treatment Not on file documented as of this encounter Visit Diagnoses Not on filedocumented in this encounter Care Teams Cutter Aluminum Sheet Relationship Specialty Start Date End Date Ravi Smith MD PCP - General 11/04/17 09/27/21 Aft, Kianna Machado MD PhD [address] [place] [address] Surgeon Surgical Oncology 11/22/17 Santiago Gilbert MD [address] [place] [address] Head Of Maintenance Gastroenterology 11/22/17 Dmitry Sanderson MD [address] [place] [address] Referring Physician Colon and Rectal Surgery 12/03/1805/06 Abbi Ventura MD [address] [place] [address] [address] [place] [address] Medical Oncologist/Rod Welder Medical Oncology 12/03/18 Montse Thompson MD [address] [facility] [address] [place] [address] Consulting Physician Gynecologic Oncology 12/03/18 Lela Hardy MD PhD [address] [place] [address] [address] [place] [address] Radiation Oncologist Radiation Oncology 12/23/18 Aft, Kianna Machado MD PhD [address] [place] [address] [address] [place] [address] Surgeon Surgical Oncology 12/23/18 09/17/21 documented as of this encounter
--- OUTSIDE RECORDS SUMMARY | 2024-04-24 13:43 | XMS_ITS | Encounter Summary ---
Author Organization [facility] Address [address] [place] [address] Phone Care Team Providers Care Cadd Drafter Name Role Phone Ravi Smith MD Primary Care Provider [phone] Aft, Kianna Machado MD PhD Unavailable [phone] Santiago Gilbert MD Unavailable Dmitry Sanderson MD Unavailable [phone] Abbi Ventura MD Unavailable Montse Thompson MD Unavailable [phone] Lela Hardy MD PhD Unavailable [phone] Aft, Kianna Machado MD PhD Unavailable [phone] Encounter Details Date Type Department Care Team (Late st Contact Info) Description 06/03/2019 Telephone [facility] Oncology [address] [place] [phone] Fatemeh Zarate, RN Social History Tobacco Use [...] on file 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 Will fax results to Dr. Smith. DB ----- Message from Aleah Gerber sent at 06/03/2019 9:04 AM PHOTOGRAPHIC ARTIST ----- Regarding: RE: Non-Urgent Medical Question Contact: Yes. Dr [facility] [phone] Thank you. ----- Message ----- From: Nurse Fatemeh Maurer Sent: 06/03/2019 8:48 AM PHOTOGRAPHIC ARTIST To: Aleah Gerber Subject: RE: Non-Urgent Medical Question Is this being requested by one of your physicians? I am happy to add it but who is the provider requesting it per I would need to forward the results to them as we don't manage diabetes. Fatemeh ----- Message ----- From: Aleah Gerber Sent: 06/03/2019 12:16 AM PHOTOGRAPHIC ARTIST To: Abbi Ventura MD Subject: RE: Non-Urgent Medical Question When I am there for blood draw on Jul 02, is it possible to have a1c level checked? It would help me from having to have it done separately. Thanks OGRAPHIC ARTIST OGRAPHIC ARTIST documented in this encounter Plan of Treatment Not on file documented as of this encounter Visit Diagnoses Not on filedocumented in this encounter Care Teams Cadd Drafter Relationship Specialty Start Date End Date Ravi Smith MD PCP - General 11/04/17 09/27/21 Aft, Kianna Machado MD PhD [address] [place] [address] Surgeon Surgical Oncology 11/22/17 Santiago Gilbert MD [address] [place] [address] Bake Room Worker Gastroenterology 11/22/17 Dmitry Sanderson MD [address] [place] [address] Referring Physician Colon and Rectal Surgery 12/03/1805/06 Abib Ventura MD [address] [place] [address] [address] [place] [address] Medical Oncologist/Celery Wrapper Medical Oncology 12/03/18 Montse Thompson MD [address] [place] [address] [address] [place] [address] Consulting Physician Gynecologic Oncology 12/03/18 Lela Hardy MD PhD [address] [place] [address] [address] [place] [address] Radiation Oncologist Radiation Oncology 12/23/18 Aft, Kianna Machado MD PhD [address] [place] [address] [address] [place] [address] Surgeon Surgical Oncology 12/23/18 09/17/21 documented as of this encounter
--- OUTSIDE RECORDS SUMMARY | 2024-04-24 13:43 | XMS_ITS | Encounter Summary ---
Author Organization [facility] Healthcare Address [address] [place] [address] Care Team Providers Care Cruise Agent Name Role Phone Ravi Smith MD Primary Care Provider [phone] Aft, Kianna Machado MD PhD Unavailable [phone] Santiago Gilbert MD Unavailable [phone] Dmitry Sanderson MD Unavailable [phone] Abbi Ventura MD Unavailable Montse Thompson MD Unavailable [phone] Lela Hardy MD PhD Unavailable [phone] Aft, Kianna Machado MD PhD Unavailable [phone] Encounter Details Date Type Department Care Team (Latest Contact Info) Description 04/09/2019 6:25 AM ASSISTANT FARM OPERATIONS MANAGER - 04/09/2019 10:00 AM [facility] [place] Hospital Encounter [facility] Operating Room [facility] [address] [place] [address] Aft, Kianna Machado MD PhD [address] [place] [address] Discharge Disposition: Discharge to home or self [...] file Legal Sex Female 1:06 AM ASSISTANT FARM OPERATIONS MANAGER Gender Identity Not on file Sexual Orientation Not on file documented as of this encounter Last Filed Vital Signs Vital Sign Reading Time Taken Comments Blood Pressure 157/84 04/09/2019 9:30 AM ASSISTANT FARM OPERATIONS MANAGER Pulse 78 04/09/2019 9:40 AM ASSISTANT FARM OPERATIONS MANAGER Temperature 36.1 ??C (97 ??F) 04/09/2019 9:15 AM ASSISTANT FARM OPERATIONS MANAGER Respiratory Rate 12 04/09/2019 9:30 AM ASSISTANT FARM OPERATIONS MANAGER Oxygen Saturation 94% 04/09/2019 9:40 AM ASSISTANT FARM OPERATIONS MANAGER Inhaled Oxygen Concentration - - Weight 106.6 kg (235 lb) 03/20/2019 4:50 PM ASSISTANT FARM OPERATIONS MANAGER Height 175.3 cm (5' 9 ) 03/20/2019 4:50 PM ASSISTANT FARM OPERATIONS MANAGER Body Mass Index 34.7 03/20/2019 4:50 PM ASSISTANT FARM OPERATIONS MANAGER documented in this encounter Discharge Diagnoses Diagnosis Encounter for adjustment and management of vascular access device - ENCOUNTER FOR ADJUSTMENT AND MANAGEMENT OF VASCULAR ACCESS DEVICE Malignant neoplasm of unspecified site of unspecified female breast (HCC) - MALIGNANT NEOPLASM OF UNSPECIFIED SITE OF UNSPECIFIED FEMALE BREAST Personal history of antineoplastic chemotherapy - PERSONAL HISTORY OF ANTINEOPLASTIC CHEMOTHERAPY Type 2 diabetes mellitus without complications (CMS/HCC) (HCC) - TYPE 2 DIABETES MELLITUS WITHOUT COMPLICATIONS Anxiety disorder, unspecified - ANXIETY DISORDER, UNSPECIFIED Major depressive disorder, single episode, unspecified - MAJOR DEPRESSIVE DISORDER, SINGLE EPISODE, UNSPECIFIED Essential (primary) hypertension - ESSENTIAL (PRIMARY) HYPERTENSION Unspecified essential hypertension Hyperlipidemia, unspecified - HYPERLIPIDEMIA, UNSPECIFIED Chronic obstructive pulmonary disease, unspecified (HCC) - CHRONIC OBSTRUCTIVE PULMONARY DISEASE, UNSPECIFIED Fatty (change of) liver, not elsewhere classified - FATTY (CHANGE OF) LIVER, NOT ELSEWHERE CLASSIFIED Iron deficiency anemia, unspecified - IRON DEFICIENCY ANEMIA, UNSPECIFIED Other chronic pain - OTHER CHRONIC PAIN Dorsalgia, unspecified - DORSALGIA, UNSPECIFIED Unspecified osteoarthritis, unspecified site - UNSPECIFIED OSTEOARTHRITIS, UNSPECIFIED SITE Obesity, unspecified - OBESITY, UNSPECIFIED Body mass index (bmi) 34.0-34.9, adult - BODY MASS INDEX (BMI) 34.0-34.9, ADULT Acquired absence of both cervix and uterus - ACQUIRED ABSENCE OF BOTH CERVIX AND UTERUS Other specified postprocedural states - OTHER SPECIFIED POSTPROCEDURAL STATES Personal history of other venous thrombosis and embolism - PERSONAL HISTORY OF OTHER VENOUS THROMBOSIS AND EMBOLISM Personal history of irradiation - PERSONAL HISTORY OF IRRADIATION Personal history of irradiation, presenting hazards to health Personal history of other malignant neoplasm of large intestine - PERSONAL HISTORY OF OTHER MALIGNANT NEOPLASM OF LARGE INTESTINE Personal history of nicotine dependence - PERSONAL HISTORY OF NICOTINE DEPENDENCE Personal history of transient ischemic attack (TIA), and cerebral infarction without residual deficits - PERSONAL HISTORY OF TRANSIENT ISCHEMIC ATTACK (TIA), 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 MCC (current) use of oral hypoglycemic drugs - TOOLSMITH (CURRENT) USE OF ORAL HYPOGLYCEMIC DRUGS Other terminologist (current) drug therapy - OTHER TOOLSMITH (CURRENT) DRUG THERAPY documented in this encounter Discharge Instructions * Discharge Instructions* Skylar Travis MD - 04/09/2019 6:09 AM ASSISTANT FARM OPERATIONS MANAGER Take tylenol for pain. STANT FARM OPERATIONS MANAGER documented in this encounter Medications at Time [...] or self care documented in this encounter H&P Notes * Skylar Travis MD - 04/09/2019 7:43 AM CST I have reviewed the H&P, examined the patient, and endorse the findings as written. Constitutional: NAD, well developed, well nourished. Eyes: PERRL, EOMI, anicteric. ENT: NCAT. Oropharynx normal, moist mucus membranes. Lungs: Clear to auscultation in all lung walsh, unlabored. Trachea midline. Port in place in R chest. Cardiovascular: RRR, normal S1 and S2, no murmurs, no JVD. GI: Soft, non-tender, non-distended, no organomegaly. Skin: No new rashes, lesions or bruises Extremities: Normal without edema or cyanosis Neurologic: AOx4, CNII-XII grossly intact Psychiatric: Normal affect and mood. Plan of Care : Based on the above findings, I consider Aleah Gerber to be an acceptable risk for : Procedure(s): REMOVAL PORT A CATH Cosigned by Kianna Bunch MD PhD at 04/09/2019 8:19 AM ASSISTANT FARM OPERATIONS MANAGER STANT FARM OPERATIONS MANAGER STANT FARM OPERATIONS MANAGER Source Note - Ashlyn Fletcher MD - 03/26/2019 6:23 PM ASSISTANT FARM OPERATIONS MANAGER Images from the original note were not [...] normal BP readings ) Hypertension year diagnosed: 2018 . Typical systolic BP - 130 Typical [...] of SOB was w/ chemotherapy started in 2018. Sxs improved w/ cessation of chemo) Dyspnea [...] due to asthma Comments: Established w a plaster machine tender this past year Hepatic / Heme + [...] for VIOLETTE. Patient has upcoming appointment w/ plaster machine tender in April w/ plans to discuss a [...] typically on the day after surgery. Sent [employer] Message via [employer] [place] in surgeon's office. Please call the CPAP attending ([phone]) to revisit bleeding risk assessment, with any [...] by telephone and in writing sent via [employer] mail. Patient verbalized understanding of preoperative plan. [...] Breast Needle Localization partial mastectomy (L), Biopsy [place] Lymph Node With Lymphoscintigraphy (L), Insertion Port [...] date: 1972 ??? Last attempt to quit: 2015 ??? Years since quittin.8 Smokeless Tobacco Never [...] There are no prior chest radiographs at [facility] for comparison. A right internal jugular catheter [...] Medication protocol when under care of a UNIT AID Planned anesthesia: MAC Induction: Induction: intravenous. Postoperative Plan: Patient's planned disposition post procedure is Outpatient. Informed Consent: Discussed plan with UNIT AID. Anesthesia plan and risks discussed with patient. Consent and Attending signature: I and/or my designee have discussed the anesthesia plan, benefits, possible alternatives, parental presence at time of induction (if indicated), and clinically relevant risks that may include dental injury, unintentional awareness, and/or other complications. The patient and/or parent/legal guardian understand, and agree to proceed. All questions answered. STANT FARM OPERATIONS MANAGER STANT FARM OPERATIONS MANAGER STANT FARM OPERATIONS MANAGER documented in this encounter Miscellaneous Notes * Perioperative Nursing Note - Deana Soria RN - 04/09/2019 8:53 AM CST Port a cath removed by Dr. Bunch. Intact in one piece. STANT FARM OPERATIONS MANAGER * Op Note - Kianna Bunch MD PhD - 04/09/2019 8:43 AM CST Operative Report SURGEON: Kianna Bunch MD PhD SURGICAL TEAM: Surgeon(s) and Role: * Kianna Bunch MD PhD - Primary * Skylar Travis MD - Resident - Assisting DATE OF SURGERY : 04/09/2019 PREOPERATIVE DIAGNOSIS: Pre-op Diagnosis * Malignant neoplasm of female breast, unspecified estrogen receptor status, unspecified laterality, unspecified site of breast (CMS/[facility]) [C50.919] POSTOPERATIVE DIAGNOSIS: Post-op Diagnosis * Malignant neoplasm of female breast, unspecified estrogen receptor status, unspecified laterality, unspecified site of breast (CMS/HCC) [C50.919] PROCEDURE: REMOVAL PORT A CATH (R) INDICATION FOR PROCEDURE: History of breast cancer. Chemotherapy completed. ANESTHESIA: Choice IMPLANTS: Nothing was implanted during the procedure OPERATIVE DETAILS After obtaining informed consent, patient was brought to the operating room and placed on the procedure table in supine position. Timeout was performed verifying correct patient, correct procedure, correct positioning, correct special equipment in the room. Preoperative??antibiotics were given and SCDs were placed upon the patient's legs??for thrombroprophylaxis. Monitored anesthesia was induced and the patient's right chest was prepped and draped in the usual sterile fashion. Her previous incision was entered with a 15 blade and then carried down through subcutaneous tissues using Bovie electrocautery. The port pocketwas entered and the port eviscerated from its capsule. The port was removed intact and discarded. Afigure of 8 stitch of 3-0 vicryl was placed at the catheter tunnel site to prevent back bleeding. Hemostasis was obtained. The cavity was copiously irrigated. ??A total of 10??mL of local anesthetic was injected??into the port pocket. Then the incision was closed with 3-0 Vicryl to approximate the dermal edge, 4 Monocryl to approximate the subcuticular edge. Exofin was applied. The procedure was then concluded. All needle and sponge counts were reported correct x2. I was present and scrubbed for the entire procedure. Estimated Blood Loss: No blood loss documented. Urine output : Not measured Intraoperative Fluids: Less than 1000 mls Blood/Blood Products Transfused: 0 mls Specimens: No specimens collected during this procedure. Complications: None Condition on Discharge from the operating room was stable Kianna Bunch MD PhD Date: 04/09/2019 Time: 9:00 AM TEACHING ATTESTATION : I was present and I participated in all portions of the procedure except Theclosure and Dr. Crowe was immediately available for all remaining portions of the case. STANT FARM OPERATIONS MANAGER * Brief Op Note - Thaddeus, Skylar Arenas MD - 04/09/2019 8:43 AM CST Operative Progress Note Surgical Team: Surgeon(s) and Role: * Kianna Bunch MD PhD - Primary * Skylar Travis MD - Resident - Assisting Anesthesiologist: Ashlyn Fletcher MD UNIT AID: Willis Bowling CRNA Key Filer: Salvador Cuello RN Scrub: ST Сергей Key Filer Second: Deana Soria RN DATE OF SURGERY : 04/09/2019 Preoperative Diagnosis: Pre-op Diagnosis * Malignant neoplasm of female breast, unspecified estrogen receptor status, unspecified laterality, unspecified site of breast (CMS/HCC) [C50.919] Postoperative Diagnosis: Post-op Diagnosis * Malignant neoplasm of female breast, unspecified estrogen receptor status, unspecified laterality, unspecified site of breast (CMS/HCC) [C50.919] Procedure(s): Procedure(s) (LRB): REMOVAL PORT A CATH (Right) Operative Findings: Port-a-cath removed, tip intact Estimated Blood Loss: No blood loss documented. Intraoperative Fluids: 700 mls Specimens: No specimen collected in procedure Implants: Nothing was implanted during the procedure Blood/Blood Products Transfused: 0 mls Complications: None Condition on Discharge from the operating room was stable Skylar Travis MD Date: 04/09/2019 Time: 9:11 AM TEACHING ATTESTATION : I was present and directly participated in the entire procedure (including opening and closing). Cosigned by Kianna Bunch MD PhD at 04/09/2019 2:29 PM ASSISTANT FARM OPERATIONS MANAGER STANT FARM OPERATIONS MANAGER STANT FARM OPERATIONS MANAGER * Pre-Procedure Instructions - Lavonne Barlow NP - 03/26/2019 6:30 PM ASSISTANT FARM OPERATIONS MANAGER Center for Preoperative Assessment and Planning CPAP Clinic Location: [facility] The night before your surgery: * Do not eat or drink anything after midnight. This includes candy, mint, gums, chewable antacids (TUMS, Rolaids) and cough drops * Do not smoke after midnight the night before surgery. It is best to stop smoking now to improve your health. * The night before your surgery, please shampoo hair, then shower/wash with antibacterial soap (Dial Soap), sleep in cleanly made bed with clean sheets. The morning of surgery shampoo hair and repeatantibacterial shower/wash - do no apply lotions, creams, powder, deodorant or hair products The morning of your surgery: * You may brush your teeth and rinse your mouth out. * Do not glue your dentures. * Do not wear jewelry, body piercings, makeup, hairpins, false eyelashes or contact lenses to the hospital. * Leave any valuables at home or with your family. You may want to bring a credit card if you want to use our Mobile Pharm[facility] for your discharge medications. Outpatient Surgery: * You must have a responsible adult [...] in the hospital overnight. If you have Diabetes: * Your diabetic medicines may change if you are on a clear liquid diet or doing a bowel prep beforesurgery. * Do not take any of your diabetic pills while you are on a clear liquid diet or doing a bowel prep. * You may also need less insulin than usual. * If you use insulin and are placed on a liquid diet, be sure to drink some liquids that contain sugar. * If your blood sugar is low [...] have any questions. Instructions For Your Medications: Take medications on day of surgery with a small sip of water Pre-Surgery Instructions: Medication Instructions ??? acetaminophen (TYLENOL) 500 mg tablet Take on day of surgery if needed ??? ALPRAZolam (XANAX) 0.25 mg tablet Take on day of surgery if needed ??? atorvastatin (LIPITOR) 20 mg tablet As per usual schedule ??? biotin 1 mg capsule Don't take on day of surgery ??? cholecalciferol (VITAMIN D3) 2,000 unit capsule Don't take on day of surgery ??? dulaglutide (TRULICITY) 0.75 mg/0.5 mL pen injector As per usual schedule ??? fluticasone propion-salmeterol (ADVAIR DISKUS) 250-50 mcg/dose diskus inhaler Take morning of surgery ??? hydroCHLOROthiazide (HYDRODIURIL) 12.5 mg tablet Don't take on day of surgery ??? magnesium oxide 400 mg magnesium capsule Don't take on day of surgery ??? mecobalamin, vitamin B12, 1,000 mcg tablet,disintegrating Don't take on day of surgery ??? potassium chloride ER (KLOR-CON,K-DUR) 10 mEq CR tablet Don't take on day of surgery ??? rivaroxaban (XARELTO) 20 mg tablet As per surgeon's instructions ??? sertraline (ZOLOFT) 50 mg tablet As per usual schedule ??? sitaGLIPtin-metformin (JANUMET XR) 100-1,000 mg tablet, ER multiphase 24 hr As per usual schedule ??? albuterol HFA (PROVENTIL HFA,VENTOLIN HFA,PROAIR HFA) 90 mcg/actuation inhaler Take on day of surgery if needed Your surgeon will tell you IF YOU SHOULD STOP the following medications and WHEN TO STOP taking them. Do not stop taking them on your own without being told to do so: XARELTO General Instructions For Medications: ?? Stop all of these medications 5 days prior to your surgery: excedrin, motrin, advil, ibuprofen, aleve, naproxen, celebrex, celecoxib, meloxicam ?? Stop all of these medications 7-14 days prior to your surgery: Vitamin E, Herbal medicines, DietPills ?? If you take aspirin, do not stop taking it unless you were instructed to do so. ?? If you take Lovenox (enoxaparin), please do the following: On the DAY BEFORE your surgery, take your regular morning dose by 7AM even if you usually take this dose later in the morning. After thisdose, do not take any further doses before your surgery. ?? If you have pain, you may take tylenol (acetaminophen). Do not take more than 6 tablets or 3000 mg (3 g) within a 24 period. Call your surgeon and the CPAP clinic if any of the following happens before surgery: ?? Any changes in your health ?? You have a fever ?? You have any signs of an infection (chest, urinary tract or tooth) ?? You have been to the Emergency Room or were in the hospital ?? You have started taking any new medications ?? You have questions about a bowel prep or special diet before surgery STANT FARM OPERATIONS MANAGER * Perioperative Nursing Note - Kandice Chairez RN - 03/20/2019 5:32 PM ASSISTANT FARM OPERATIONS MANAGER APPLIES SKIN CARE TO LEFT BREAST TISSUE R/T HEALING RADIATION JONES. STANT FARM OPERATIONS MANAGER * Pre-Procedure Instructions - Kandice Chairez RN - 03/20/2019 5:01 PM ASSISTANT FARM OPERATIONS MANAGER Center for Preoperative Assessment and Planning Perioperative Nursing Note CPAP Clinic at [facility] ([facility]) Date: 03/20/19 Vitals: 03/20/19 1650 Weight: 106.6 kg (235 lb) Height: 175.3 cm (5' 9 ) [...] Substance and Sexual Activity Drug Use Never Outpatient Medications Marked as Taking for the 04/07/19 encounter (Hospital Encounter) with RebeccaL. Julio C MD PhD Medication Sig Dispense Refill ??? acetaminophen (TYLENOL) 500 mg tablet Take 1,000 mg by mouth every 6 (six) hours as needed for pain ??? ALPRAZolam (XANAX) 0.25 mg tablet Take [...] the skin every 7 days Saturday ??? fluticasone propion-salmeterol (ADVAIR DISKUS) 250-50 mcg/dose diskus inhaler Inhale 1 puff 2 (two) times a day Rinse mouth with water after use. Do not swallow. 1 each 5 ??? hydroCHLOROthiazide (HYDRODIURIL) 12.5 mg tablet Take 12.5 mg by mouth nightly 0 ??? magnesium oxide 400 mg magnesium capsule Take 1 tablet by mouth 2 (two) times a day ??? mecobalamin, vitamin B12, 1,000 mcg tablet,disintegrating Place under the tongue every morning ??? potassium chloride ER (KLOR-CON,K-DUR) 10 mEq CR tablet Take 1 tablet/capsule (10 mEq total) bymouth 2 (two) times a day (Patient taking differently: Take 10 mEq by mouth 2 (two) times a day ) 60 tablet/capsule 6 ??? rivaroxaban (XARELTO) 20 mg tablet Take 1 tablet (20 mg total) by mouth daily. (Patient taking differently: Take 20 mg by mouth nightly ) 30 tablet 6 ??? sertraline (ZOLOFT) 50 mg tablet Take 50 mg by mouth nightly 3 ??? 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: [employer] Lot number: [id number] Size: 8F Device identifier: [id number] Device identifier type: GS1 As of 01/14/2018 Status: Implanted SKIN Piercings Remaining: Yes Wound (LDAs) Type of Wound (LDA): Jones SCREENINGS Mayers Fall Risk Score: 15 Ele index score: 100 Is someone currently physically or emotionally hurting you or your family?: Denies NUTRITION PATIENT CARE PLANNING Advance Directives (For Healthcare) Advance Directive: Patient does not have advance directive Assistive Devices/DME: None Discharge Planning Type of Residence: Private residence Living Arrangements: Spouse/significant other Support Systems: Spouse/significant other Patient expects to be discharged to:: Private residence ADDITIONAL COMMENTS/ FOLLOW UP HAS ADVANCED DIRECTIVE PAPERWORK. INSTRUCTED THAT DOCUMENTS CAN BE NOTORIZED AT HOSPITAL AND SCANNED INTO SYSTEM. STANT FARM OPERATIONS MANAGER * Pre-Procedure Instructions - Kandice Chairez RN - 03/20/2019 4:57 PM ASSISTANT FARM OPERATIONS MANAGER ?? Map for surgery location given to patient. ?? Arrival time and surgical time will be provided by your surgeon. ?? Taking Care of Yourself After Surgery, a Guide for Patients given to patient ?? Bring a current list of all medications. ?? Bring your ID and insurance card with you. ?? Do not shave the area where surgery is to be performed 24 hours prior to surgery. ?? Wash your hair with normal shampoo the morning of or night before surgery. ?? Wear loose comfortable clothes the morning of surgery ?? Safe Surgery for Patients with Obstructive Sleep Apnea/Screening brochure reviewed with patient and family ?? How To Prepare Your Skin For Surgery with chlorhexidine surgical scrub instructions given to patient. Do not use the antiseptic soap on your face or hair. ?? Shower the evening before surgery and morning of surgery with an antibacterial soap. If your surgeon's office has not notified you of your surgery time within 2 days of your surgery, please call [phone] and ask for your surgeon's office, __JULIO C . STANT FARM OPERATIONS MANAGER documented in this encounter Plan of Treatment Not on file documented as of this encounter Procedures Procedure Name Priority Date/Time Associated Diagnosis Comments REMOVAL PORT A CATH 04/09/2019 8:24 AM ASSISTANT FARM OPERATIONS MANAGER Malignant neoplasm of female breast, unspecified estrogen receptor status, unspecified laterality, unspecified site of breast (CMS/HCC) Case Notes 03/31: moved case from 04/07 to 04/09 per Deana phillips) POCT GLUCOSE DEVICE Routine 04/09/2019 7:01 AM ASSISTANT FARM OPERATIONS MANAGER documented in this encounter Results * POCT glucose (04/09/2019 7:01 AM ASSISTANT FARM OPERATIONS MANAGER) Glucose, POC 129 70 - 199 mg/dL LEVAR MICHELLE Blood specimen (specimen) 04/09/2019 7:01 AM ASSISTANT FARM OPERATIONS MANAGER 04/09/2019 7:01 AM ASSISTANT FARM OPERATIONS MANAGER us Kianna Bunch MD PhD LAB POCT ORDERABLES - ROSEMARY CE Final Result [facility] Department [place] [address] documented in this encounter Visit Diagnoses Not on filedocumented in this encounter Administered Medications Inactive Administered Medications - up to 3 most recent administrations Medication Order MAR Action Action Date Dose Rate Site Lactated Ringer's (LR) infusion 30 mL/hr, intravenous, Continuous, Starting on Bonnie 04/09/19 at 0715, Pre-Op New Bag 04/09/2019 7:00 AM ASSISTANT FARM OPERATIONS MANAGER 50 mL/h r documented in this encounter Discontinued Medications Medication Sig Discontinue Reason Start Date End Da te docusate sodium (COLACE) 100 mg capsuleIndications:con stipation,Stool Softener Take 1 capsule (100 mg total) by mouth 2 (two) times a day 02/14/2019 03/20/2019 LORazepam (ATIVAN) 0.5 mg tabletIndications:Tammie 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 01/14/2019 03/20/2019 documented as of this encounter Active and Recently Administered Medications Times are shown in ASSISTANT FARM OPERATIONS MANAGER. Continuous Medication Order 04/07/2019 04/08/2019 04/09/2019 Lactated Ringer's (LR) infusion 30 mL/hr, intravenous, Continuous, Starting on Bonnie 04/09/19 at 0715, Pre-Op 0700 (New Bag - Prov ider: Willis Bowling CRNA)0908 (Anesthesia Volume Adjustment - Provider: Willis Bowling CRNA) Lactated Ringer's (LR) infusion 125 mL/hr, intravenous, Continuous, Starting on Bonnie 04/09/19 at 1000, Phase I 1000 (Due) PRN Medication Order 04/07/2019 04/08/2019 04/09/2019 bupivacaine (MARCAINE) 0.5 % (5 mg/mL) preservative free injection (CANCELED) As needed, Starting on Bonnie 04/09/19 at 0842, Intra-Op 0842 (Given - Provid er: Kianna Bunch MD PhD - Comment: right chest mixed with 2% lidocaine) fentaNYL (SUBLIMAZE) preservative free injection 50 mcg 50 mcg, intravenous, Once as needed, breakthrough pain, Starting on Bonnie 04/09/19 at 0925, For 1 dose, Phase I, Administer for uncontrolled or increasing pain while in PACU only. Then proceed to PACU 1st line analgesic., Indications: Pain HYDROcodone-acetaminophen (NORCO) 5-325 mg per tablet 1 tablet 1 tablet, oral, Once as needed, 2nd line for pain, Starting on Bonnie 04/09/19 at 0925, For 2 doses, Phase I, Indications: Pain HYDROmorphone (DILAUDID) injection 0.4 mg 0.4 mg, intravenous, Administer over 2 Minutes, Every 10 min PRN, 2nd line for pain, Starting on Bonnie 04/09/19 at 0925, Phase I, May administer 10 mintes after 2nd dose of 1st line analgesic agent for uncontrolled or increasing pain. Revert to 1st line dose if POSS of 3. Notify Anesthesiologist if total PACU dose reaches 2 mg and pain score 5/10 or more., Indications: Pain lidocaine (XYLOCAINE) 20 mg/mL (2 %) injection (CANCELED) As needed, Starting on Bonnie 04/09/19 at 0842, Intra-Op, Indications: Administration of Local Anesthesia 0842 (Given - Provid er: Kianna Bunch MD PhD - Comment: right chest mixed with 0.5% marcaine) naloxone (NARCAN) 0.4 mg/mL injection 0.04-0.4 mg 0.04-0.4 mg, intravenous, Once as needed, other, excessive sedation/respiratory depression, Starting on Bonnie 04/09/19 at 0925, For 1 dose, Phase I, Dilute 0.4 mg with 9 mL NS (final concentration 0.04 mg/mL). For respiratory depression (respiratory rate less than 6), administer 0.4 mg IVP over 30 seconds. For excessive sedation administer 0.04 mg (1 mL) every 1 minute until desired level of alertness. For IV, administer over 30 seconds., Indications: Opioid Toxicity ondansetron (ZOFRAN) injection 4 mg 4 mg, intravenous, Administer over 2 Minutes, Once as needed, nausea, vomiting, Starting on Bonnie 04/09/19 at 0925, For 1 dose, Phase I, Switch to prochlorperazine if no relief within 30 minutes. , Indications: Nausea and Vomiting prochlorperazine (COMPAZINE) injection 10 mg 10 mg, intravenous, Once as needed, nausea, vomiting, Starting on Bonnie 04/09/19 at 0925, For 1 dose, Phase I, If not relieved by ondansetron within 30 minutes., Indications: Nausea and Vomiting sodium chloride 0.9 % irrigation (CANCELED) As needed, Starting on Bonnie 04/09/19 at 0849, Intra-Op 0849 (Given - Provid er: Kianna Bunch MD PhD) documented in this encounter Orders Medications Ordered That Jefferson ht Not Have Been Administered Count Last Ordered Date First Ordered Date bupivacaine (MARCAINE) 0.5 % (5 mg/mL) preservative free injection 1 04/09/2019 fentaNYL (SUBLIMAZE) preserv ative free injection 50 mcg 1 04/09/2019 HYDROcodone-acetaminophen (N ORCO) 5-325 mg per tablet 1 tablet 1 04/09/2019 HYDROmorphone (DILAUDID) injection 0.4 mg 1 04/09/2019 Lactated Ringer's (LR) infusion 2 9 lidocaine (XYLOCAINE) 20 mg/ mL (2 %) injection 1 04/09/2019 naloxone (NARCAN) 0.4 mg/mL injection 0.04-0.4 mg 1 04/09/2019 ondansetron (ZOFRAN) injection 4 mg 1 04/09 prochlorperazine (COMPAZINE) injection 10 mg 1 04/09/2019 sodium chloride 0.9 % irrigation 1 04/09/20 19 sodium chloride 0.9% flush 0.5-20 mL 1 09/2018 Diet Count Last Ordered Date First Orde red Date ADULT DISCHARGE DIET 1 04/09/2019 Nursing Count Last Ordered Date First Orde red Date DISCHARGE ACTIVITY 4 04/09/2019 DISCHARGE CALL PROVIDER 6 04/09/2019 DISCHARGE DRESSING 4 04/09/2019 documented in this encounter Care Teams Cruise Agent Relationship Specialty Start Date End Date Ravi Smith MD PCP - General 11/04/17 09/27/21 Aft, Kianna Machado MD PhD [address] [place] [address] Surgeon Surgical Oncology 11/22/17 Santiago Gilbert MD [address] [place] [address] Park Police Gastroenterology 11/22/17 Dmitry Sanderson MD [address] [place] [address] Referring Physician Colon and Rectal Surgery 12/03/1805/06 Abbi Ventura MD [address] [place] [address] [address] [place] [address] Medical Oncologist/Salsa Dance Instructor Medical Oncology 12/03/18 Montse Thompson MD [address] [facility] [address] [place], [place] [id number] Consulting Physician Gynecologic Oncology 12/03/18 Lela Hardy MD PhD [address] [place] [address] [address] [place] [address] Radiation Oncologist Radiation Oncology 12/23/18 Aft, Kianna Machado MD PhD [address] [place] [address] [address] [place], [place] [id number] Surgeon Surgical Oncology 12/23/18 09/17/21 documented as of this encounter
--- OUTSIDE RECORDS SUMMARY | 2024-04-24 13:43 | XMS_ITS | Encounter Summary ---
Author Organization [facility] Address [address] [place] [address] Phone Care Team Providers Care Plant Supervisor Name Role Phone Ravi Smith MD Primary Care Provider [phone] Aft, Kianna Machado MD PhD Unavailable [phone] Santiago Gilbert MD Unavailable [phone] Dmitry Sanderson MD Unavailable [phone] Abbi Ventura MD Unavailable Montse Thompson MD Unavailable [phone] Lela Hardy MD PhD Unavailable [phone] Aft, Kianna Machado MD PhD Unavailable [phone] Reason for Referral * Diagnostic Imaging (Routine) - Closed Specialty Diagnoses / Procedures Referred By Contac t Referred To Contact Diagnoses 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) Procedures NM Bone Imaging Whole Body Abbi Ventura MD [address] [facility] [address] [place] [address] Phone: tel: fax: [address] [phone] Referral ID Status Reason Start Date Expiration Date Visits Re quested Visits Authorized [id number] Closed 06/17/2019 12/26/2020 2 2 NG MACHINE SET UP OPERATOR JIG Encounter Details Date Type Department Care Team (Late st Contact Info) Description 06/17/2019 3:30 PM BORING MACHINE SET UP OPERATOR JIG Office Visit [facility] Oncology [address] [place] [address] Abbi Ventura MD [address] [facility] [facility] [address] [place] [address] Malignant neoplasm of descending colon (CMS/HCC) (Primary [...] on file Legal Sex Female 1:06 AM BORING MACHINE SET UP OPERATOR JIG Gender Identity Not on file Sexual Orientation Not on file documented as of this encounter Last Filed Vital Signs Vital Sign Reading Time Taken Comments Blood Pressure 145/79 06/17/2019 2:58 PM BORING MACHINE SET UP OPERATOR JIG Pulse 85 06/17/2019 2:58 PM BORING MACHINE SET UP OPERATOR JIG Temperature 36.9 ??C (98.5 ??F) 06/17/2019 2:58 PM CS T Respiratory Rate 14 06/17/2019 2:58 PM BORING MACHINE SET UP OPERATOR JIG Oxygen Saturation 94% 06/17/2019 2:58 PM BORING MACHINE SET UP OPERATOR JIG Inhaled Oxygen Concentration - - Weight 106.6 kg (235 lb) 06/17/2019 2:58 PM BORING MACHINE SET UP OPERATOR JIG Height 175.3 cm (5' 9 ) 06/17/2019 2:58 PM BORING MACHINE SET UP OPERATOR JIG Body Mass Index 34.7 06/17/2019 2:58 PM BORING MACHINE SET UP OPERATOR JIG documented in this encounter Ordered Prescriptions Prescription Sig Dispense Quantity Refills Last Filled Start Date End Date gabapentin (NEURONTIN) 300 mg capsule Take 1 capsule (300 mg total) by mouth 3 (three) times a day 90 capsule 11 06/17/2019 0 documented in this encounter Progress Notes * Abbi Ventura MD - 06/17/2019 3:30 PM CST The Patient Identifying Data: Aleah Gerber is a 63 y.o. female seen in followup today DIAGNOSIS: 1. 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 ClearRisk My risk showed no mutation in MLH [...] radiation therapy completed 02/04/2019. Interval History Patient reports pain in her left breast since her 2nd surgery on and off. She also has complaints of pain all over her body at multiple bones and joint area. She had twitching in the back of her legsand a jerky movement to her legs on and off. That symptom has now resolved. She continues to have low energy levels. No other complaints. Review of Systems Review of systems positive for symptoms as per interval history. All other review of systems negative. Objective Vitals: Vitals BP 145/79 (BP Location: Right arm) Pulse 85 Temp 36.9 ??C (98.5 ??F) (Oral) Resp 14 Ht 175.3 cm (5' 9 ) Wt 106.6 kg (235 lb) LMP (LMP Unknown) SpO2 94% BMI 34.70 kg/m?? PERFORMANCE STATUS: ECOG 1 SKIN: Normal [...] dominant masses. No nipple or areolar changes. Lab/Radiology/Diagnostic Review: Hematology Lab History Some values may be hidden. Unless noted otherwise, only the newest values recorded on each date aredisplayed. Labs - Hematology Latest Ref Range 02/05/19 02/13/19 04/01/19 06/17/19 WBC 3.8 - 9.9 K/cumm 8.0 9.4 7.3 6.9 Total Hb, POC 11.9 - 15.5 g/dL 11.0 (A) 9.6 (A) 11.2 (A) 11.6 (A) Hct 35.6 - 45.5 % 33.8 (A) 29.5 (A) 33.6 (A) 34.9 (A) Plt 150 - 400 K/cumm 151 136 (A) 156 160 Neutrophil abs 1.7 - 6.5 K/cumm 6.2 5.6 4.7 (A) Abnormal value Lab Results Component Value Date SODIUM 140 06/17/2019 POTASSIUM 4.6 06/17/2019 CO2 28 06/17/2019 BUNSER 21 06/17/2019 GLUCOSE 137 06/17/2019 CREATININE 1.15 (H) 06/17/2019 CALCIUM 10.0 06/17/2019 CHLORIDE 100 06/17/2019 ALBUMIN 4.3 06/17/2019 AST 23 06/17/2019 ALT 13 06/17/2019 ALKPHOS 92 06/17/2019 BILITOT 0.5 06/17/2019 PROT 7.3 06/17/2019 ANIONGAP 12 06/17/2019 Tumor Marker History Some values may be hidden. Unless noted otherwise, only the newest values recorded on each date aredisplayed. Tumor Markers Latest Ref Range 10/15/18 10/20/18 12/03/18 04/01/19 CEA <=5.0 ng/mL 2.3 2.7 2.4 CA 125 ag 0.0 - 35.0 units/mL 12.3 Immunoglobulin G Immunoglobulin A Immunoglobulin M Immunofixation Comments are available for some flowsheets but are not being displayed. Recent labs, radiology and pathology reviewed in EPIC ASSESSMENT: T4bN0 disease, Stage IIC colon adenocarcinoma: No evidence of cancer recurrence T2N0, Stage IIA triple negative left breast cancer: I think her breast pain is related to nerve endings sending signals in the surgery area. Complaints of pain in multiple bones and body areas - we will order a bone scan to make sure it is not related to cancer recurrence. If bone scan is negative she needs to talk to her primary care physician regarding fibromyalgia MyRisk panel is positive for BRCA2 mutation, and VUS in BRIP1 and NBN: Status post bilateral oophorectomy. She does not want bilateral mastectomy and wants to be monitored closely. Depression/anxiety: Improved. follow up by Dr. Simms as needed. 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 Encouraged her to participate in an exercise program to help her improve her energy level Starting gabapentin to help with paresthesias in her left breast. Last colonoscopy was 12/10/2018 and it showed benign changes. Return to clinic in December 2019 for follow-up visit since she will be seeing breast surgeon in August 2019. Abbi Ventura MD designated broker Division of Oncology Section of Medical Oncology [facility] Tread Cutter completed by using M*Modal Fluency Direct speaking software, therefore, transcriptionvariances may occur. NG MACHINE SET UP OPERATOR JIG documented in this encounter Plan of Treatment Not on file documented as of this encounter Results * CEA (12/23/2019 2:47 PM CDT) CEA 1.9 <=5.0 ng/mL [facility] Comment: Interpretative Data: Reference Range: Non-Smokers: 0.0 - 5.0 ng/mL Smokers: 0.0 ? 6.5 ng/mL This test was developed and its performance characteristics determined by the [facility] in a manner consistent with CLIA requirements. This test has not been cleared or approved by the U.S. Food and Drug Administration. Current interpretive data was last revised 2018. Blood specimen (specimen) 12/23/2019 2:47 PM CDT 12/23/2019 7:00 PM CDT us Abbi Ventura MD LAB BLOOD ORDERABLES Final Resul t [facility] Department [place] [address] * (ABNORMAL) Comprehensive metabolic panel (12/23/2019 2:47 PM CDT) Sodium 142 135 - 145 mmol/L [facility] Potassium, pl 4.4 3.3 - 4.9 mmol/L [facility] Chloride 103 97 - 110 mmol/L [facility] CO2 28 22 - 32 mmol/L [facility] Anion gap 11 2 - 15 mmol/L [facility] BUN 21 8 - 25 mg/dL [facility] Creatinine 1.46(H) 0.60 - 1.10 mg/dL [facility] Glucose 95 70 - 199 mg/dL [facility] Comment: Interpretive Data Fasting glucose [...] 2017. Calcium 9.9 8.5 - 10.3 mg/dL [facility] Bilirubin, total 0.5 0.1 - 1.2 mg/dL [facility] Protein, pl 7.3 6.5 - 8.5 g/dL [facility] Albumin 4.4 3.5 - 5.0 g/dL [facility] Alk phos 85 40 - 130 Units/L [facility] ALT 13 7 - 45 Units/L [facility] AST 25 10 - 45 Units/L [facility] Blood specimen (specimen) 12/23/2019 2:47 PM CDT 12/23/2019 2:54 PM CDT Narrative [facility] - 12/23/2019 7:14 PM CDT stat stat us Abbi Ventura MD LAB BLOOD ORDERABLES Final Resul t [facility] [place] [address] * (ABNORMAL) CBC with auto differential (12/23/2019 2:47 PM CDT) WBC 8.1 3.8 - 9.9 K/cumm [facility] Hgb 11.8(L) 11.9 - 15.5 g/dL [facility] Hct 35.9 35.6 - 45.5 % [facility] Plt 175 150 - 400 K/cumm [facility] MPV 10.1 9.1 - 12.3 fL [facility] RBC 3.83(L) 3.90 - 5.20 M/cumm [facility] MCV 93.7 81.3 - 96.4 fL [facility] MCH 30.8 27.1 - 33.3 pg [facility] MCHC 32.9 32.3 - 35.7 g/dL [facility] RDW CV 13.5 11.1 - 14.9 % [facility] RDW SD 46.6 35.7 - 48.1 fL [facility] NRBC abs 0.00 0.00 - 0.01 K/cumm [facility] Blood specimen (specimen) 12/23/2019 2:47 PM CDT 12/23/2019 2:54 PM CDT us Abbi Ventura MD LAB BLOOD ORDERABLES Final Resul t [facility] Department [place] [address] * NM Bone Imaging Whole Body (06/24/2019 12:56 PM BORING MACHINE SET UP OPERATOR JIG) Anatomical Region Laterality Modality N/A Digital Radiogra phy 06/24/2019 1:23 PM BORING MACHINE SET UP OPERATOR JIG Impressions 06/24/2019 1:31 PM BORING MACHINE SET UP OPERATOR JIG No definite scintigraphic evidence of osseous metastatic disease. Dictated by: Meredith Hankins M.D. The radiology attending physician has personally reviewed this study, and had reviewed and/or edited this written report and agrees with it. Electronically signed by: Lela Lainez M.D. Narrative 06/24/2019 1:31 PM BORING MACHINE SET UP OPERATOR JIG EXAMINATION: ??BONE SCINTIGRAPHY (WHOLE-BODY) DATE OF STUDY: [...] by: Lela Lainez M.D. Abbi Ventura MD [facility] PROCEDURES Final Result * CEA (06/17/2019 2:22 PM BORING MACHINE SET UP OPERATOR JIG) CEA 2.2 <=5.0 ng/mL [facility] Comment: Interpretative Data: Reference Range: Non-Smokers: 0.0 - 5.0 ng/mL Smokers: 0.0 ? 6.5 ng/mL This test was developed and its performance characteristics determined by the [facility] in a manner consistent with CLIA requirements. This test has not been cleared or approved by the U.S. Food and Drug Administration. Current interpretive data was last revised 2018. 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 Medication Sig Dispense Quantity Refills Last Filled Start D ate End Date AMOXICILLIN 500 mg capsule 06/17/2019 09/16/2019 fluticasone furoate-vilanterol (Breo Ellipta) 200-25 mcg/dose diskus inhaler 09/16/2019 added in this encounter Orders Appointment Requests Count Last Ordered Date Fi rst Ordered Date ONCBCN CLINIC APPOINTMENT REQUEST 1 020 ON[facility]N LAB APPOINTMENT 1 12/23/2019 documented in this encounter Care Teams Plant Supervisor Relationship Specialty Start Date End Date Ravi Smith MD PCP - General 11/04/17 09/27/21 Aft, Kianna Machado MD PhD [address] [place] [address] Surgeon Surgical Oncology 11/22/17 Santiago Gilbert MD [address] [place] [address] Director Of Product Marketing Gastroenterology 11/22/17 Dmitry Sadnerson MD [address] [place] [address] Referring Physician Colon and Rectal Surgery 12/03/1805/06 Abbi Ventura MD [address] [facility] [facility] [address] [place] [address] Medical Oncologist/Manager Forensic Medical Oncology 12/03/18 Montse Thompson MD [address] [facility] [place] [address] Consulting Physician Gynecologic Oncology 12/03/18 Lela Hardy MD PhD [address] [facility] [place] [address] Radiation Oncologist Radiation Oncology 12/23/18 Aft, Kianna Machado MD PhD [address] [facility] [facility] [address] [place] [address] Surgeon Surgical Oncology 12/23/18 09/17/21 documented as of this encounter
--- OUTSIDE RECORDS SUMMARY | 2024-04-24 13:43 | XMS_ITS | Encounter Summary ---
Author Organization [facility] Address [address] [place] [address] Phone Care Team Providers Care Client Support Coordinator Name Role Phone Ravi Smith MD Primary Care Provider [phone] Aft, Kianna Machado MD PhD Unavailable [phone] Santiago Gilbert MD Unavailable [phone] Dmitry Sanderson MD Unavailable [phone] Birdie Ventura MD Unavailable Montse Thompson MD Unavailable [phone] Lela Hardy MD PhD Unavailable [phone] Aft, Kianna Machado MD PhD Unavailable [phone] Reason for Referral * Diagnostic Imaging (Routine) - Closed Specialty Diagnoses / Procedures Referred By Contac t Referred To Contact Radiology Diagnoses Malignant neoplasm of upper-inner quadrant of left breast in female, estrogen receptor negative (HCC) Procedures CT Chest Abdomen Pelvis W Contrast Birdie Ventura MD [address] [facility] [address] [place] [address] Phone: tel: fax: [facility] Referral ID Status Reason Start Date Expiration Date Visits Re quested Visits Authorized [id number] Closed 04/01/2019 10/10/2020 1 1 E HAND * Diagnostic Imaging (Routine) - Closed Specialty Diagnoses / Procedures Referred By Vijaya simpson Referred To Contact Radiology Diagnoses Malignant neoplasm of upper-inner quadrant of left breast in female, estrogen receptor negative (HCC) Procedures MRI Breast Bilateral W WO Contrast Birdie Ventura MD [address] [place] [address] Phone: tel: fax: [facility] Referral ID Status Reason Start Date Expiration Date Visits Re quested Visits Authorized [id number] Closed 04/01/2019 10/10/2020 1 1 E HAND Reason for Visit * Oncology (Routine) - Closed Specialty Diagnoses / Procedures Referred By Vijaya simpson Referred To Contact Medical Oncology / Oncology Diagnoses 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 Ventura to discuss TC Procedures ONCBCN CLINIC APPOINTMENT REQUEST RETURN Jamaica Montoya NP [address] [place] [address] [place] [address] Phone: tel: fax: Birdie Ventura MD [address] [place] [address] Phone: tel: fax: Referral ID Status Reason Start Date Expiration Date V isits Requested Visits Authorized [id number] Closed Specialty Services Required 06/04/2018 05/05/2019 99 99 Encounter Details Date Type Department Care Team (Late st Contact Info) Description 04/01/2019 10:30 AM SPARE HAND Office Visit [facility] On[facility] [address] [place] [address] Birdie Ventura MD [address] [place] [address] Malignant neoplasm of upper-inner quadrant of left breast in female, 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) (Primary Dx); Malignant neoplasm of descending colon [...] on file Legal Sex Female 1:06 AM SPARE HAND Gender Identity Not on file Sexual Orientation Not on file documented as of this encounter Last Filed Vital Signs Vital Sign Reading Time Taken Comments Blood Pressure 135/55 04/01/2019 10:49 AM SPARE HAND Pulse 104 04/01/2019 10:49 AM SPARE HAND Temperature 36.8 ??C (98.2 ??F) 04/01/2019 10:[address] Respiratory Rate 16 04/01/2019 10:49 AM SPARE HAND Oxygen Saturation 97% 04/01/2019 10:49 AM SPARE HAND Inhaled Oxygen Concentration - - Weight 105.9 kg (233 lb 8 oz) 04/01/2019 10:49 A M SPARE HAND Height - - Body Mass Index 34.48 03/30/2019 4:33 PM SPARE HAND documented in this encounter Ordered Prescriptions Prescription Sig Dispense Quantity Refills Last Filled Start Date End Date potassium chloride ER (KLOR-CON) 10 mEq CR tablet Take 1 tablet/caps ule (10 mEq total) by mouth daily 30 tablet 6 04/01/2019 03/23/2020 potassium chloride ER (KLOR-CON) 10 mEq CR tablet Take 1 tablet/caps ule (10 mEq total) by mouth 4 (four) times a day 30 tablet 6 04/01/2019 04/01/2019 documented in this encounter Progress Notes * Birdie Ventura MD - 04/01/2019 10:30 AM CST The Patient Identifying Data: Aleah Gerber [...] ~ 1.4 cm, Grade 3, ER 0, OK 0, HER-2 IHC 0. Partial mastectomy and [...] radiation therapy completed 02/04/2019. Interval History Patient underwent hysterectomy and bilateral oophorectomy on 02/13/2019 and she is recovering slowly from the surgery. She has pelvic pressure and frequent micturition during daytime. Patient says that she had urine tested for UTI and it was negative. Numbness in the plantar aspect of her feet. It feels that she has a bubble wrap on the plantar aspect of her feet. Complains of minimal tingling and discomfort in her hands and feet. Neuropathy is no longer affecting function. Complains of occasional itching at the tattoo site for radiation therapy. No other complaints. Review of Systems Review of systems positive for symptoms as per interval history. All other review of systems negative. Objective Vitals: Vitals BP 135/55 Pulse 104 Temp 36.8 ??C (98.2 ??F) (Oral) Resp 16 Wt 105.9 kg (233 lb 8 oz) SpO2 97% BMI 34.48 kg/m?? PERFORMANCE STATUS: ECOG 1 SKIN: Normal [...] areolar changes. Left: Status post partial mastectomy. Has hyperpigmentation from recent radiation therapy. No nipple or areolar changes. ACCESS: L infraclav port-a-cath in place and accessed. Lab/Radiology/Diagnostic Review: Hematology Lab History Some values may be hidden. Unless noted otherwise, only the newest values recorded on each date aredisplayed. Labs - Hematology Latest Ref Range 12/03/18 02/05/19 02/13/19 04/01/19 WBC 3.8 - 9.9 K/cumm 6.6 8.0 9.4 7.3 Total Hb, POC 11.9 - 15.5 g/dL 10.4 (A) 11.0 (A) 9.6 (A) 11.2 (A) Hct 35.6 - 45.5 % 31.6 (A) 33.8 (A) 29.5 (A) 33.6 (A) Plt 150 - 400 K/cumm 150 151 136 (A) 156 Neutrophil abs 1.7 - 6.5 K/cumm 4.7 6.2 5.6 (A) Abnormal value Lab Results Component Value Date SODIUM 142 04/01/2019 POTASSIUM 4.2 04/01/2019 CO2 27 04/01/2019 BUNSER 24 04/01/2019 GLUCOSE 164 04/01/2019 CREATININE 1.09 04/01/2019 CALCIUM 9.5 04/01/2019 CHLORIDE 107 04/01/2019 ALBUMIN 4.2 04/01/2019 AST 17 04/01/2019 ALT 12 04/01/2019 ALKPHOS 79 04/01/2019 BILITOT 0.2 04/01/2019 PROT 7.1 04/01/2019 ANIONGAP 8 04/01/2019 Tumor Marker History Some values may be [...] pathology reviewed in [facility]ESSMENT: T4bN0 disease, Stage IIC colon adenocarcinoma: No evidence of cancer recurrence T2N0, 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 She does not want bilateral mastectomy and wants to be monitored closely Depression/anxiety: Improved. follow up by Dr. Simms as needed. 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 RTC in 3 months to see me in follow up MRI breast for screening in the next 1-2 weeks Due for yearly scans for colon cancer in 05/2019 and we are scheduling that. I reassured patient regarding pelvis pressure. She recently had surgery in that area and it was inspected visually. Had colonoscopy done at [facility] and we will get a copy of that report. Birdie Ventura MD flight operations inspector Division of Oncology Section of Medical Oncology [facility] Director Of Front Office completed by using M*Modal Fluency Direct speaking software, therefore, transcriptionvariances may occur. E HAND documented in this encounter Plan of Treatment Not on file documented as of this encounter Results * CT Chest Abdomen Pelvis W Contrast (05/04/2019 9:09 AM SPARE HAND) Anatomical Region Laterality Modality Body N/A Computed Tomogra phy 05/04/2019 9:24 AM SPARE HAND Impressions 05/04/2019 9:24 AM SPARE HAND 1. No metastatic disease or recurrent disease within the chest, abdomen or pelvis. 2. Interval resolution of pulmonary emboli. Electronically signed by: Ovidio Meyers M.D. Narrative 05/04/2019 9:24 AM SPARE HAND EXAMINATION: CT CHEST, ABDOMEN AND PELVIS WITH [...] emboli. Electronically signed by: Ovidio Meyers M.D. Birdie Ventura MD [facility] PROCEDURES Final Result * MRI Breast Bilateral W WO Contrast (04/23/2019 12:03 PM SPARE HAND) Anatomical Region Laterality Modality Breast Bilateral Magnetic Resonan ce 04/23/2019 1:49 PM SPARE HAND Impressions 04/23/2019 2:18 PM SPARE HAND 1. Stable LEFT breast conservation changes. ??No [...] Nayeli Hughes M.D. Narrative 04/23/2019 2:18 PM SPARE HAND ALEAH GERBER, : 1955 (63 years), , [...] by: Nayeli Hughes M.D. Birdie Ventura MD [facility] [place] PROCEDURES Final Result * CEA (04/01/2019 10:18 AM SPARE HAND) CEA 2.4 <=5.0 ng/mL [facility] Comment: Interpretative Data: Reference Range: Non-Smokers: 0.0 - 5.0 ng/mL Smokers: 0.0 ? 6.5 ng/mL This test was developed and its performance characteristics determined by the [facility] in a manner consistent with CLIA requirements. This test has not been cleared or approved by the U.S. Food and Drug Administration. Current interpretive data was last revised 2018. Blood specimen (specimen) 04/01/2019 10:18 AM SPARE HAND 04/01/2019 11:15 AM SPARE HAND Birdie Ventura MD LAB BLOOD ORDERABLES Final Resul t Performing Organization Address City/[facility] Co de Phone Number [facility] [place] [address] * Magnesium (04/01/2019 10:18 AM SPARE HAND) Pathologist [facility] Magnesium 1.8 1.4 - 2.5 mg/dL [facility] Blood specimen (specimen) 04/01/2019 10:18 AM SPARE HAND 04/01/2019 10:18 AM SPARE HAND Birdie Ventura MD LAB BLOOD ORDERABLES Final Resul t Performing Organization Address [facility] de Phone Number [facility] Department [place] [address] * Comprehensive metabolic panel (04/01/2019 10:18 AM SPARE HAND) Pathologist [facility] Sodium 142 135 - 145 mmol/L [facility] Potassium, pl 4.2 3.3 - 4.9 mmol/L [facility] Chloride 107 97 - 110 mmol/L [facility] CO2 27 22 - 32 mmol/L [facility] Anion gap 8 2 - 15 mmol/L [facility] BUN 24 8 - 25 mg/dL [facility] Creatinine 1.09 0.60 - 1.10 mg/dL [facility] Glucose 164 70 - 199 mg/dL [facility] [...] 2017. Calcium 9.5 8.5 - 10.3 mg/dL [facility] Bilirubin, total 0.2 0.1 - 1.2 mg/dL [facility] Protein, pl 7.1 6.5 - 8.5 g/dL [facility] Albumin 4.2 3.5 - 5.0 g/dL [facility] Alk phos 79 40 - 130 Units/L [facility] ALT 12 7 - 45 Units/L [facility] AST 17 10 - 45 Units/L [facility] Blood specimen (specimen) 04/01/2019 10:18 AM SPARE HAND 04/01/2019 10:18 AM SPARE HAND us Birdie Ventura MD LAB BLOOD ORDERABLES Final Resul t [facility] [place] [address] * (ABNORMAL) CBC with auto differential (04/01/2019 10:18 AM SPARE HAND) Pathologist [facility] WBC 7.3 3.8 - 9.9 K/cumm [facility] Hgb 11.2(L) 11.9 - 15.5 g/dL [facility] Hct 33.6(L) 35.6 - 45.5 % [facility] Plt 156 150 - 400 K/cumm [facility] MPV 9.4 9.1 - 12.3 fL [facility] RBC 3.63(L) 3.90 - 5.20 M/cumm [facility] MCV 92.6 81.3 - 96.4 fL [facility] MCH 30.9 27.1 - 33.3 pg [facility] MCHC 33.3 32.3 - 35.7 g/dL [facility] RDW CV 13.8 11.1 - 14.9 % [facility] RDW SD 46.9 35.7 - 48.1 fL [facility] NRBC abs 0.00 0.00 - 0.01 K/cumm [facility] Blood specimen (specimen) 04/01/2019 10:18 AM SPARE HAND 04/01/2019 10:18 AM SPARE HAND us Birdie Ventura MD LAB BLOOD ORDERABLES Final Resul t [facility] [place] [address] documented in this encounter Visit Diagnoses Diagnosis [...] receptor negative (HCC) documented in this encounter Discontinued Medications Medication Sig Discontinue Reason Start Date End Da te potassium chloride ER (KLOR-CON,K-DUR) 10 mEq CR tablet Take 1 tablet/capsule (10 mEq total) by mouth 2 (two) times a day Reorder 10/01/2018 04/01/2019 rivaroxaban (XARELTO) 20 mg tabletIndications:Preven tion of Recurrent Venous Thrombosis in Malignancy Take 1 tablet (20 mg total) by mouth daily. Therapy completed 06/13/2018 04/01/2019 potassium chloride ER (KLOR-CON) 10 mEq CR tablet Take 1 tablet/capsule (10 mEq total) by mouth 4 (four) times a day 04/01/2019 04/01/2019 documented as of this encounter Orders Appointment Requests Count Last Ordered Date Fi rst Ordered Date ONCBCN CLINIC APPOINTMENT REQUEST 1 019 documented in this encounter Care Teams Client Support Coordinator Relationship Specialty Start Date End Date Ravi Smith MD PCP - General 11/04/17 09/27/21 Aft, Kianna Machado MD PhD [address] [place] [address] Surgeon Surgical Oncology 11/22/17 Santiago Gilbert MD [address] [place] [address] Interim Controller Gastroenterology 11/22/17 Dmitry Sanderson MD [address] [place] [address] Referring Physician Colon and Rectal Surgery 12/03/1805/06 Birdie Ventura MD [address] [facility] [address] [place] [address] Medical Oncologist/[facility] Medical Oncology 12/03/18 Montse Thompson MD [address] [facility] [address] [place] [address] Consulting Physician Gynecologic Oncology 12/03/18 Lela Hardy MD PhD [address] [facility] [address] [place] [address] Radiation Oncologist Radiation Oncology 12/23/18 Aft, Kianna Machado MD PhD [address] [facility] [address] [place] [address] Surgeon Surgical Oncology 12/23/18 09/17/21 documented as of this encounter
--- OUTSIDE RECORDS SUMMARY | 2024-04-24 13:43 | XMS_ITS | Encounter Summary ---
Author Organization [facility] Address [address] [place] [address] Phone Care Team Providers Care Cafeteria Operator Name Role Phone Ravi Smith MD Primary Care Provider [phone] Aft, Kianna Machado MD PhD Unavailable [phone] Santiago Gilbert MD Unavailable [phone] Dmitry Sanderson MD Unavailable [phone] Abbi Ventura MD Unavailable Montse Thompson MD Unavailable [phone] Lela Hardy MD PhD Unavailable [phone] Aft, Kianna Machado MD PhD Unavailable [phone] Reason for Visit * Reason Comments Post-op Encounter Details Date Type Department Care Team (Late st Contact Info) Description 04/23/2019 12:40 PM BIOLOGY INSTRUCTOR Office Visit [facility] Surgery [address] [facility] Advanced Medicine 5th [place] [address] [place] [id number] Jessica Swanson, [facility] [address] [address] History of breast cancer (Primary Dx) Social [...] on file Legal Sex Female 1:06 AM BIOLOGY INSTRUCTOR Gender Identity Not on file Sexual Orientation Not on file documented as of this encounter Last Filed Vital Signs Vital Sign Reading Time Taken Comments Blood Pressure - - Pulse - - Temperature - - Respiratory Rate - - Oxygen Saturation - - Inhaled Oxygen Concentration - - Weight 105.7 kg (233 lb) 04/23/2019 1:16 PM BIOLOGY INSTRUCTOR Height 175.3 cm (5' 9 ) 04/23/2019 1:16 PM BIOLOGY INSTRUCTOR Body Mass Index 34.41 04/23/2019 1:16 PM BIOLOGY INSTRUCTOR documented in this encounter Progress Notes * Jessica Swanson, RACEBOOK WRITER - 04/23/2019 12:40 PM CST Section of Surgical Oncology and Endocrinology [facility] [address], [address], [place] [address] - NAME: Aleah Gerber : 1955 DATE: 04/23/19 CHIEF COMPLAINT: Postop appointment HISTORY OF PRESENT ILLNESS: The patient is a 63 y.o. female who returns today. She was undergoing aCT scan at an outside facility for a diagnosis of adenocarcinoma of the transverse colon. of the chest abdomen and pelvis in October of 2017 where they noted an abnormal appearing mass in her left breast. She then underwent diagnostic imaging on 11/04/2017 with a noted a 1.8 centimeter mass at the 9 o'clock position of the left breast and a satellite lesion. She then underwent image guided biopsy on 11/05/2017 which demonstrated invasive ductal carcinoma, ER/IN negative, HER 2 negative. She then underwent genetic testing was found to be BRCA 2 positive. On 12/27/2017 she underwent a left hemicolectomy for 6.5 centimeter low tumor of the left colon pT4b with no evidence of metastatic carcinoma.On 01/14/2018 she underwent needle localization partial mastectomy with sentinel lymph node biopsy. She opted not to undergo bilateral mastectomy secondary to her treatment for colon cancer. She presents for a follow-up visit. 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 She had 0 of 3 positive lymph nodes. She then underwent adjuvant chemotherapy of FOLFOX. She did have a reaction and ultimately declined the oxaliplatin. She then underwent 5 FU/LV. She then underwent Adriamycin and Cytoxan. On 11/11/2018 she underwenta re-excision with demonstrated no residual disease. She then completed adjuvant radiation therapy.She had her port removed was having significant discomfort and is here today for evaluation. She states that the discomfort is 6 significantly improved in things it is a Dermabond. She notes no palpable findings on her breast self-examination. She has a past medical history of Anemia, Anxiety, Asthma, At risk for sleep apnea, Breast cancer ([facility]) (2017), Breast cancer ([facility]) (2017), Colon cancer ([facility]), Colon cancer ([facility]) (2017), Colon polyps, COPD (chronic obstructive pulmonary disease) ([facility]), Depression, DVT (deep veinthrombosis) in (05/2017), DVT (deep venous thrombosis) ([facility]) (05/2018), Former smoker, History of ileus (12/2017), Hypercholesteremia, Hypertension, Leg swelling, Lower extremity edema,Memory loss, Mucositis, Obesity, Personal history of other medical treatment, Personal history of other medical treatment, SOB (shortness of breath), SOB (shortness of breath) (2018), TIA (transient i schemic attack) (2007), Type 2 diabetes mellitus ([facility]), and Vascular disease. She also has no past medical history of Acute respiratory failure requiring reintubation ([facility]), Awareness under anesthesia, Delayed emergence from general anesthesia, Diabetes mellitus type I ([facility]), Hard to intubate, Malignant hyperthermia, Motion sickness, [...] Breast Needle Localization partial mastectomy (L), Biopsy [place] Lymph Node With Lymphoscintigraphy (L), Insertion Port A Cath (R) with ultrasound and fluroscopy ??? PORTACATH PLACEMENT 01/2018 right upper chest ??? PORTACATH PLACEMENT Right 2018 ??? TUBAL LIGATION 1991 ??? VAGINAL DELIVERY Social History Socioeconomic History [...] Last attempt to quit: 2015 Years since quittin.9 ??? Smokeless tobacco: Never Used Substance and Sexual Activity ??? Alcohol use: Not Currently Frequency: Monthly or less Comment: socially ??? Drug use: Never ??? Sexual activity: Defer Lifestyle ??? Physical activity: Days per week: None Minutes per session: None ??? Stress: None Relationships ??? Social connections: Talks on phone: None Gets together: None Attends gnosticism service: None Active member of club or [...] times a day as needed for anxiety 11/07/17 Yes Historical Provider, atorvastatin (LIPITOR) 20 mg [...] incision the upper portion of her chest for prior port. There isno signs of infection. The Dermabond was on loose and I removed the remainder. The left breast has a well-healed incision with a well-healed axillary incision. She has no evidence of local recurrence, no mass, no palpable axillary mass. ABDOMEN: Soft, nontender with no palpable masses. MUSCULOSKELETAL: No evidence of rib, long bone, or spine pain. EXTREMITIES: Full range of motion in both arms. No lymphedema. NEUROLOGICAL: No focal neurologic signs; normal gait. IMAGING: I reviewed her breast MRI which was performed today which demonstrated: FINDINGS: ?? There are changes [...] to call with questions. Jessica Swanson, MSN, [employer]LECT[employer]S SALESPERSON- Endocrine and Oncology Surgery I have reviewed the history and physical, social history and surgical history and I concur with thefindings. Kianna Bunch M.D. negative checker, Endocrine Oncology surgery Cosigned by Kianna Bunch MD PhD at 04/24/2019 12:34 PM BIOLOGY INSTRUCTOR OGY INSTRUCTOR OGY INSTRUCTOR documented in this encounter Plan of Treatment Not on file documented as of this encounter Visit Diagnoses Diagnosis History of breast cancer- Primary Personal history of malignant neoplasm of breast documented in this encounter Historical Medications * This list may reflect changes made after this encounter. desoximetasone (TOPICORT) 0.25 % cream APPLY CREAM EXTERNALLY TO AFFECTED AREA EVER NIGHT PRIOR TO VANICREAM 2 04/05/2019 0 added in this encounter Care Teams Cafeteria Operator Relationship Specialty Start Date End Date Ravi Smith MD PCP - General 11/04/17 09/27/21 Kianna Bunch MD PhD [address] [place] [address] Surgeon Surgical Oncology 11/22/17 Santiago Gilbert MD [address] [place] [address] Transfer Car Operator Drier Gastroenterology 11/22/17 Dmitry Sanderson MD [address] [place] [address] Referring Physician Colon and Rectal Surgery 12/03/1805/06 Abbi Ventura MD [address] [place] [address] [address] [place] [address] Medical Oncologist/Recycle Worker Medical Oncology 12/03/18 Montse Thompson MD [address] [place] [address] [address] [place] [address] Consulting Physician Gynecologic Oncology 12/03/18 Lela Hardy MD PhD [address] [facility] [facility] [address] [place] [address] Radiation Oncologist Radiation Oncology 12/23/18 Aft, Kianna Machado MD PhD [address] [facility] [address] [place] [address] Surgeon Surgical Oncology 12/23/18 09/17/21 documented as of this encounter
--- OUTSIDE RECORDS SUMMARY | 2024-04-24 13:43 | XMS_ITS | Encounter Summary ---
Author Organization [facility] Address [address] [place] [address] Phone Care Team Providers Care Cutter Aluminum Sheet Name Role Phone Ravi Smith MD Primary Care Provider [phone] Aft, Kianna Machado MD PhD Unavailable [phone] Santiago Gilbert MD Unavailable [phone] Dmitry Sanderson MD Unavailable [phone] Abbi Ventura MD Unavailable Montse Thompson MD Unavailable [phone] Lela Hardy MD PhD Unavailable Aft, Kianna Machado MD PhD Unavailable [phone] Reason for Referral * Pulmonology (Routine) - Closed Specialty Diagnoses / Procedures Referred By Contac t Referred To Contact Pulmonology Diagnoses Other acute pulmonary embolism without acute cor pulmonale (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) Chronic obstructive pulmonary disease, unspecified COPD type (HCC) Procedures Pulmonary Function Test -[facility]- [facility]-8[facility]; Meth Challenge Cristobal Dong MD [address] [place] [address] Phone: tel: fax: [facility] [address] [address] [place] [address] Phone: tel: fax: Referral ID Status Reason Start Date Expiration Date Visits Re quested Visits Authorized [id number] Closed 02/05/2019 08/16/2020 99 99 STACKER Reason for Visit * Pulmonology (Routine) - Closed Specialty Diagnoses / Procedures Referred By Contac t Referred To Contact Pulmonology Diagnoses Other acute pulmonary embolism without acute cor pulmonale (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) Chronic obstructive pulmonary disease, unspecified COPD type (HCC) Procedures Pulmonary Function Test -[facility]- [facility]-8[facility]; Meth Challenge Cristobal Dong MD [address] [facility] [address] [place] [address] Phone: tel: fax: [facility] [address] [facility] [facility] [address] [place] [address] Phone: tel: fax: Referral ID Status Reason Start Date Expiration Date Visits Re quested Visits Authorized [id number] Closed 02/05/2019 08/16/2020 99 99 Encounter Details Date Type Department Care Team (Latest Contact Info) Description 03/12/2019 8:45 AM BALE STACKER - 03/12/2019 11:59 PM BALE STACKER Hospital Encounter [facility] [address] [facility] [address] [place] [id number] Other acute pulmonary embolism without acute cor [...] on file Legal Sex Female 1:06 AM BALE STACKER Gender Identity Not on file Sexual Orientation [...] 2,000 Units by mouth nightly 10/04/2017 0 docusate sodium (COLACE) 100 mg capsuleIndicatio ns:constipation, [...] mouth 2 (two) times a day 0 potassium chloride ER (KLOR-CON,K-DUR) 10 mEq CR [...] Diagnosis Comments PULMONARY FUNCTION TEST (PFT) Routine 03/12/2019 10:01 AM BALE STACKER Other acute pulmonary embolism without acute cor pulmonale (CMS/HCC) Malignant neoplasm of descending colon (CMS/HCC) Chronic obstructive pulmonary disease, unspecified COPD type (CMS/HCC) documented in this encounter Results * Pulmonary Function Test - (03/12/2019 10:01 AM BALE STACKER) FVC PRED 3.71 0.05 - 9.99 Liters [facility] FVC PRE 2.67 0 - 12 Liters [facility] FVC %PRE PRED 72 0 - 300 % [facility] FVC POST 2.61 0 - 12 Liters [facility] FVC %POST PRED 70 0 - 300 % [facility] FVC %CHNG -2 0 - 300 % [facility] FEV1 PRED 2.89 0.05 - 9.99 Liters [facility] FEV1 PRE 2.09 0 - 12 Liters [facility] FEV1 %PRE PRED 72 0 - 300 % [facility] FEV1 POST 1.99 0 - 12 Liters [facility] FEV1 %POST PRED 69 0 - 300 % [facility] FEV1 %CHNG -5 0 - 300 % [facility] FEV1/FVC PRED 79 1 - 99 % [facility] FEV1/FVC PRE 78 0 - 12 % [facility] FEV1/FVC POST 76 0 - 12 % [facility] JAO47-06% PRED 2.47 0 - 12 L/sec [facility] ZGM81-94% PRE 1.89 0 - 12 L/sec [facility] JPZ39-63% %PRE PRED 76 0 - 300 % [facility] STW97-40% POST 1.40 0 - 12 L/sec [facility] DJO47-49% %POST PRED 56 0 - 300 % [facility] AGJ03-96% %CHNG -26 0 - 300 % [facility] FEF75% PRED 0.73 0 - 300 L/sec [facility] FEF75% PRE 0.71 0 - 12 L/sec [facility] FEF75% %PRE PRED 98 % [facility] FEF75% POST 0.42 0 - 12 L/sec [facility] FEF75% %POST PRED 58 0 - 300 % [facility] FEF75% %CHNG -40 0 - 12 % [facility] PEF PRED 6.32 0 - 18 L/sec [facility] PEF PRE 6.87 0 - 18 L/sec [facility] PEF %PRE PRED 109 0 - 300 % [facility] PEF POST 7.15 0 - 18 L/sec [facility] PEF %POST PRED 113 0 - 300 % [facility] PEF %CHNG 4 0 - 300 % [facility] LQW040% %CHNG 7 % [facility] PIF PRE 5.35 0 - 18 L/sec [facility] PIF POST 5.28 0 - 18 L/sec [facility] PIF %CHNG -1 0 - 300 % [facility] FEV6 PRE 2.63 0 - 12 Liters [facility] FEV6 POST 2.56 0 - 12 Liters [facility] FEV6 % CHG -3 0 - 300 % [facility] FEV1/FEV6 PRE 79 0 - 12 % [facility] FEV1/FEV6 POST 78 0 - 12 % [facility] VC PRED 3.54 0.05 - 9.99 Liters [facility] TLC PRED 5.79 0.05 - 11.99 Liters [facility] RV PRED 2.25 0.05 - 9.99 Liters [facility] RV/TLC PRED 40 0 - 300 % [facility] FRC N2 PRED 2.81 0.05 - 9.99 [address] [facility] FRC PL PRED 3.31 0.05 - 9.99 Liters [facility] ERV PRED 1.22 0.05 - 9.99 Liters [facility] DLCO PRED 27.6 0.05 - 99.99 mL/mmHg/min [facility] DL ADJ PRED 27.6 1 - 2 mL/mmHg/min [facility] DLCO/VA PRED 5.05 mL/mHg/min/ L [facility] DL/VA ADJ PRED 3.83 mL/mHg/min/ L [facility] RAW PRED 1.14 cmH2O/L/sec [facility] GAW PRED 0.794 L/sec/cmH2O [facility] SRAW PRED 3.76 cmH2O/L/s/L [facility] SGAW PRED 0.261 L/s/cmH2O/L [facility] Anatomical Region Laterality Modality PFT 03/12/2019 9:02 AM BALE STACKER Narrative 03/17/2019 11:39 AM BALE STACKER SEE PDF Cristobal Dong MD PFT ORDERABLES Final Result documented in this encounter Visit Diagnoses Diagnosis Other acute pulmonary embolism without acute cor pulmonale (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) Malignant neoplasm of descending colon Chronic obstructive pulmonary disease, unspecified COPD type (HCC) documented in this encounter Care Teams Cutter Aluminum Sheet Relationship Specialty Start Date End Date Ravi Smith MD PCP - General 11/04/17 09/27/21 AftKianna MD PhD [address] [place] [address] Surgeon Surgical Oncology 11/22/17 Santiago Gilbert MD [address] [place] [address] Drain Technician Gastroenterology 11/22/17 Dmitry Sanderson MD [address] [place] [address] Referring Physician Colon and Rectal Surgery 12/03/1805/06 Abbi Ventura MD [address] [place] [address] [address] [place] [address] Medical Oncologist/Cistern Room Working Supervisor Medical Oncology 12/03/18 Montse Thompson MD [address] [place] [address] [address] [place] [address] Consulting Physician Gynecologic Oncology 12/03/18 Lela Hardy MD PhD [address] [place] [address] [address]UAN [address] ARNOLD [address] [place] [address] Radiation Oncologist Radiation Oncology 12/23/18 AftKianna MD [facility] [address] [place] [address] Surgeon Surgical Oncology 12/23/18 09/17/21 documented as of this encounter
--- OUTSIDE RECORDS SUMMARY | 2024-04-24 13:43 | XMS_ITS | Encounter Summary ---
Author Organization [facility] Address [address] [place] [address] Care Team Providers Care Mailroom Courier Name Role Phone Ravi Smith MD Primary Care Provider [phone] Aft, Kianna Machado MD PhD Unavailable [phone] Santiago Gilbert MD Unavailable [phone] Dmitry Sanderson MD Unavailable [phone] Abbi Ventura MD Unavailable Montse Thompson MD Unavailable [phone] Lela Hardy MD PhD Unavailable [phone] Aft, Kianna Machado MD PhD Unavailable [phone] Encounter Details Date Type Department Care Team (Late st Contact Info) Description 04/09/2019 8:15 AM TILT TRAY DRIVER - 04/09/2019 9:30 AM TILT TRAY DRIVER Surgery [facility] Operating [facility] [address] [place] [address] Aft, Kianna Machado MD PhD [address] [place], [place] [id number] REMOVAL PORT A CATH Surgery Details Date/Time Status Location OR Service Patient Class Case Cl ass Case Type Trauma Case? 04/09/2019 8:15 AM Posted [facility] CAM OR POD 4 A Oncology Outpatient Elective Panel 1 Procedure LRB Anes Op Region Wound Class Comments REMOVAL PORT A CATH Right Choice Class I - Clean Surgeon Surgeon Role Service Panel Aft, Kianna Machado MD PhD Primary Oncology 1 Skylar Travis MD Resident - Assisting Gener al Surgery 1 Case Notes 03/31: moved case from 04/07 to 04/09 per Deana phillips) documented in this encounter Social History Tobacco [...] on file Legal Sex Female 1:06 AM TILT TRAY DRIVER Gender Identity Not on file Sexual Orientation Not on file documented as of this encounter Last Filed Vital Signs Vital Sign Reading Time Taken Comments Blood Pressure 157/84 04/09/2019 9:30 AM TILT TRAY DRIVER Pulse 73 04/09/2019 9:30 AM TILT TRAY DRIVER Temperature 36.1 ??C (97 ??F) 04/09/2019 9:15 AM TILT TRAY DRIVER Respiratory Rate 12 04/09/2019 9:30 AM TILT TRAY DRIVER Oxygen Saturation 96% 04/09/2019 9:30 AM TILT TRAY DRIVER Inhaled Oxygen Concentration - - Weight 106.6 kg (235 lb) 03/20/2019 4:50 PM TILT TRAY DRIVER Height 175.3 cm (5' 9 ) 03/20/2019 4:50 PM TILT TRAY DRIVER Body Mass Index 34.7 03/20/2019 4:50 PM TILT TRAY DRIVER documented in this encounter Discharge Instructions * Discharge Instructions* Skylar Travis MD - 04/09/2019 6:09 AM TILT TRAY DRIVER Take tylenol for pain. TRAY DRIVER documented in this encounter Medications at Time [...] Bunch MD PhD at 04/09/2019 8:19 AM TILT TRAY DRIVER TRAY DRIVER TRAY DRIVER Source Note - Ashlyn Fletcher MD - 03/26/2019 6:23 PM TILT TRAY DRIVER Images from the original note were not [...] due to asthma Comments: Established w a senior salesforce developer this past year Hepatic / Heme + [...] completed 02/04/2019. Hx colon cancer s/p resection 2018 . Functional Capacity Functional capacity: <4 METs [...] for VIOLETTE. Patient has upcoming appointment w/ senior salesforce developer in April w/ plans to discuss a [...] day after surgery. Sent Epic Message via Nu3 in surgeon's office. Please call the CPAP attending ([phone]) to revisit bleeding risk assessment, with any questions, or to discuss alternative management plans. > Epic Message to surgeon pool is query regarding whether surgeon might consider removing Port while patient on NOAC. Defer patient periop Eliquis recommendations to Dr. Bnuch & team. Blood bank needs for day [...] by telephone and in writing sent via USPS mail. Patient verbalized understanding of preoperative plan. [...] Breast Needle Localization partial mastectomy (L), Biopsy Sargents Lymph Node With Lymphoscintigraphy (L), Insertion Port [...] multiphase 24 hr 03/19/2019 -- -- Historical Provider, No current facility-administered medications for this encounter. [...] There are no prior chest radiographs at [facility] for comparison. A right internal jugular catheter [...] Medication protocol when under care of a HEALTH AND WELLNESS MANAGER Planned anesthesia: MAC Induction: Induction: intravenous. Postoperative Plan: Patient's planned disposition post procedure is Outpatient. Informed Consent: Discussed plan with HEALTH AND WELLNESS MANAGER. Anesthesia plan and risks discussed with patient. Consent and Attending signature: I and/or my designee have discussed the anesthesia plan, benefits, possible alternatives, parental presence at time of induction (if indicated), and clinically relevant risks that may include dental injury, unintentional awareness, and/or other complications. The patient and/or parent/legal guardian understand, and agree to proceed. All questions answered. TRAY DRIVER TRAY DRIVER TRAY DRIVER documented in this encounter Miscellaneous Notes * Perioperative Nursing Note - Deana Soria RN - 04/09/2019 8:53 AM CST Port a cath removed by Dr. Bunch. Intact in one piece. TRAY DRIVER * Op Note - Kianna Bunch MD [...] laterality, unspecified site of breast (CMS/HCC) [C50.919] POSTOPERATIVE DIAGNOSIS: Post-op Diagnosis * Malignant [...] for all remaining portions of the case. TRAY DRIVER * Brief Op Note - Skylar Travis MD - 04/09/2019 8:43 AM CST Operative Progress Note Surgical Team: Surgeon(s) and Role: * Kianna Bunch MD PhD - Primary * Skylar Travis MD - Resident - Assisting Anesthesiologist: Ashlyn Fletcher MD HEALTH AND WELLNESS MANAGER: Willis Bowling CRNA Yard Loader Operator: Salvador Cuello RN Scrub: ST Сергей Yard Loader Operator Second: Deana Soria RN DATE OF SURGERY [...] Bunch MD PhD at 04/09/2019 2:29 PM TILT TRAY DRIVER TRAY DRIVER TRAY DRIVER * Pre-Procedure Instructions - Lavonne Barlow NP - 03/26/2019 6:30 PM TILT TRAY DRIVER [facility] Planning CPAP Clinic Location: [facility] The night before your [...] own without being told to do so: RADHARELSANDRA General Instructions For Medications: ?? Stop all [...] bowel prep or special diet before surgery TRAY DRIVER * Perioperative Nursing Note - Kandice Chairez RN - 03/20/2019 5:32 PM TILT TRAY DRIVER APPLIES SKIN CARE TO LEFT BREAST TISSUE R/T HEALING RADIATION JONES. TRAY DRIVER * Pre-Procedure Instructions - Kandice Chairez RN - 03/20/2019 5:01 PM TILT TRAY DRIVER [facility]operative [facility] and Planning Perioperative Nursing Note CPAP Clinic at [facility] ([facility]) Date: 03/20/19 Vitals: 03/20/19 1650 Weight: 106.6 [...] Other - see comments [facility] [id number] Powerport Clearvue Airguard 8fr 1 Lumen Lightweight Intermediate Latex Free - [id number] - Implanted (Right) Chest Wall Inventory item: [facility] [id number] Powerport Clearvue Airguard 8fr 1 Lumen Lightweight Intermediate Latex Free Model/Cat number: [id number] Nursing Home Manager: [facility] Lot number: [id number] Size: 8F Device identifier: [id number] Device identifier type: GS1 As of 01/14/2018 [...] NOTORIZED AT HOSPITAL AND SCANNED INTO SYSTEM. TRAY DRIVER * Pre-Procedure Instructions - Kandice Chairez RN - 03/20/2019 4:57 PM TILT TRAY DRIVER ?? Map for surgery location given to [...] 2 days of your surgery, please call [phone] and ask for your surgeon's office, __JULIO C . TRAY DRIVER documented in this encounter Plan of Treatment Not on file documented as of this encounter Procedures Procedure Name Priority Date/Time Associated Diagnosis Comments REMOVAL PORT A CATH 04/09/2019 8:24 AM TILT TRAY DRIVER Malignant neoplasm of female breast, unspecified estrogen receptor status, unspecified laterality, unspecified site of breast (CMS/HCC) Case Notes 03/31: moved case from 04/07 to 04/09 per Deana phillips) POCT GLUCOSE DEVICE Routine 04/09/2019 7:01 AM TILT TRAY DRIVER documented in this encounter Results * POCT glucose (04/09/2019 7:01 AM TILT TRAY DRIVER) Glucose, POC 129 70 - 199 mg/dL LEVAR MICHELLE Blood specimen (specimen) 04/09/2019 7:01 AM TILT TRAY DRIVER 04/09/2019 7:01 AM TILT TRAY DRIVER us Kianna Bunch MD PhD LAB POCT ORDERABLES - ROSEMARY CE Final Result [facility] Department [place] [address] documented in this encounter Visit Diagnoses Diagnosis Malignant neoplasm of female breast, unspecified estrogen receptor status, unspecified laterality, unspecified site of breast (HCC) documented in this encounter Administered Medications Inactive Administered Medications - up to 3 most recent administrations Medication Order MAR Action Action Date Dose Rate Site bupivacaine (MARCAINE) 0.5 % (5 mg/mL) preservative free injection As needed, Starting on Bonnie 04/09/19 at 0842, Intra-Op Given 04/09/2019 8:42 AM TILT TRAY DRIVER 3.5 mL Chest Lactated Ringer's (LR) infusion 30 mL/hr, intravenous, Continuous, Starting on Bonnie 04/09/19 at 0715, Pre-Op New Bag 04/09/2019 7:00 AM TILT TRAY DRIVER 50 mL/hr lidocaine (XYLOCAINE) 20 mg/mL (2 %) injection As needed, Starting on Bonnie 04/09/19 at 0842, Intra-Op, Indications: Administration of Local AnesthesiaIndications:Adm inistration of Local Anesthesia Given 04/09/2019 8:42 AM TILT TRAY DRIVER 3.5 mL Chest sodium chloride 0.9 % irrigation As needed, Starting on Bonnie 04/09/19 at 0849, Intra-Op Given 04/09/2019 8:49 AM TILT TRAY DRIVER 1,000 mL Surgical Site documented in this encounter Discontinued Medications Medication [...] Recently Administered Medications Times are shown in TILT TRAY DRIVER. Continuous Medication Order 04/07/2019 04/08/2019 04/09/2019 Lactated [...] 2nd line for pain, Starting on Bonnie 19 at 0925, Phase I, May administer 10 [...] Count Last Ordered Date First Ordered Date fentaNYL (SUBLIMAZE) preserv ative free injection 50 mcg 1 04/09/2019 HYDROcodone-acetaminophen (N ORCO) 5-325 mg per tablet 1 tablet 1 04/09/2019 HYDROmorphone (DILAUDID) injection 0.4 mg 1 04/09/2019 Lactated Ringer's (LR) infusion 2 9 naloxone (NARCAN) 0.4 mg/mL injection 0.04-0.4 mg 1 04/09/2019 ondansetron (ZOFRAN) injection 4 mg 1 04/09 prochlorperazine (COMPAZINE) injection 10 mg 1 04/09/2019 sodium chloride 0.9% flush 0.5-20 mL 1 09/2018 Diet Count Last Ordered Date First Orde red Date ADULT DISCHARGE DIET 1 04/09/2019 Nursing Count Last Ordered Date First Orde red Date DISCHARGE ACTIVITY 4 04/09/2019 DISCHARGE CALL PROVIDER 6 04/09/2019 DISCHARGE DRESSING 4 04/09/2019 documented in this encounter Care Teams Mailroom Courier Relationship Specialty Start Date End Date Ravi Simth MD PCP - General 11/04/17 09/27/21 AftKianna MD PhD [address] [place] [address] Surgeon Surgical Oncology 11/22/17 Santiago Gilbert MD [address] [place] [address] Manager Client Gastroenterology 11/22/17 Dmitry Sanderson MD [address] [place] [address] Referring Physician Colon and Rectal Surgery 12/03/1805/06 Abbi Ventura [facility] [address] [place] [address] Medical Oncologist/Sound Cutter Medical Oncology 12/03/18 Montse Thompson MD [facility] [address] [place] [address] Consulting Physician Gynecologic Oncology 12/03/18 Lela Hardy MD PhD [address] [place] [address] Radiation Oncologist Radiation Oncology 12/23/18 Kianna Bunch MD PhD [facility] [address] [address] [place] [address] Surgeon Surgical Oncology 12/23/18 09/17/21 documented as of this encounter
--- OUTSIDE RECORDS SUMMARY | 2024-04-24 13:43 | XMS_ITS | Encounter Summary ---
Author Organization [facility] Address [address] [place] [address] Phone Care Team Providers Care Welder Pipe Making Name Role Phone Ravi Smith MD Primary Care Provider [phone] Aft, Kianna Machado MD PhD Unavailable [phone] Santiago Gilbert MD Unavailable [phone] Dmitry Sanderson MD Unavailable [phone] Abbi Ventura MD Unavailable Montse Thompson MD Unavailable [phone] Lela Hardy MD PhD Unavailable [phone] Aft, Kianna Machado MD PhD Unavailable [phone] Encounter Details Date Type Department Care Team (Late st Contact Info) Description 07/02/2019 Telephone [facility] Neuro Sleep [address] [place] [address] Bettina Harper, RN Social History [...] on file Legal Sex Female 1:06 AM REPAIRER SCREEN CRUSHER Gender Identity Not on file Sexual Orientation Not on file documented as of this encounter Miscellaneous Notes * Telephone Encounter - Bettina Harper RN - 07/02/2019 2:43 PM REPAIRER SCREEN CRUSHER Contacted [facility] and confirmed that the patient's insurance is out of network. They documented that they called on 06/09/19 and gave this information to the [place]. Contacted [facility] and they state theytake this insurance. Faxed DME order to [facility] with all necessary documents. Order scanned with fax confirmation page. IRER SCREEN CRUSHER * Telephone Encounter - Bettina Harper RN - 07/02/2019 2:43 PM REPAIRER SCREEN CRUSHER ----- Message from Aleah Gerber sent at 07/01/2019 5:59 PM REPAIRER SCREEN CRUSHER ----- Regarding: Non-Urgent Medical Question Contact: I have not received a machine or any further info from sleep study Other than you saying I would benefit from having machine and a company called who said they don???t take my insurance. That being said should the appointment for July be changed? Where do we go from here. Aleah Gerber 1955 IRER SCREEN CRUSHER documented in this encounter Plan of Treatment Not on file documented as of this encounter Visit Diagnoses Not on filedocumented in this encounter Care Teams Welder Pipe Making Relationship Specialty Start Date End Date Ravi Smith MD PCP - General 11/04/17 09/27/21 Aft, Kianna Machado MD PhD [address] [place] [address] Surgeon Surgical Oncology 11/22/17 Santiago Gilbert MD [address] [place] [address] Tool And Die Inspector Gastroenterology 11/22/17 Dmitry Sanderson MD [address] [place], [place] [id number] Referring Physician Colon and Rectal Surgery 12/03/1805/06 Abbi Ventura MD [address] [place] [address] [address] [place], [place] [id number] Medical Oncologist/Stripping And Booking Machine Operator Medical Oncology 12/03/18 Montse Thompson MD [address] [place] [address] [address] [place] [address] Consulting Physician Gynecologic Oncology 12/03/18 Lela Hardy MD PhD [address] [place] [address] [address] [place], [place] [id number] Radiation Oncologist Radiation Oncology 12/23/18 Aft, Kianna Machado MD PhD [address] [place] [address] [address] [place], [place] [id number] Surgeon Surgical Oncology 12/23/18 09/17/21 documented as of this encounter
--- OUTSIDE RECORDS SUMMARY | 2024-04-24 13:43 | XMS_ITS | Encounter Summary ---
Author Organization [facility] Address [address] [place] [address] Phone Care Team Providers Care Supervisor Color Making Name Role Phone Ravi Smith MD Primary Care Provider [phone] Aft, Kianna Machado MD PhD Unavailable [phone] Santiago Gilbert MD Unavailable [phone] Dmitry Sanderson MD Unavailable [phone] Abbi Ventura MD Unavailable Montse Thompson MD Unavailable [phone] Lela Hardy MD PhD Unavailable [phone] Aft, Kianna Machado MD PhD Unavailable [phone] Encounter Details Date Type Department Care Team (Late st Contact Info) Description 06/03/2019 Orders Only [facility] Oncology [address] [place] [address] Abbi Ventura MD [address] [facility] [address] [place] [address] Malignant neoplasm of descending colon (CMS/HCC) (Primary [...] on file Legal Sex Female 1:06 AM CASH SHORTAGE 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 Gender Identity Not on file Sexual Orientation Not on file documented as of this encounter Plan of Treatment Not on file documented as of this encounter Visit Diagnoses Diagnosis 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)- Primary Malignant neoplasm of descending colon documented in this encounter Care Teams Supervisor Color Making Relationship Specialty Start Date End Date Ravi Smith MD PCP - General 11/04/17 09/27/21 Aft, Kianna Machado MD PhD [address] [place] [address] Surgeon Surgical Oncology 11/22/17 Santiago Gilbert MD [address] [place] [address] Gold Tooler Gastroenterology 11/22/17 Dmitry Sanderson MD [address] [place] [address] Referring Physician Colon and Rectal Surgery 12/03/1805/06 Abbi Ventura MD [address] [facility] [address] [place] [address] Medical Oncologist/Steel Welder Medical Oncology 12/03/18 Montse Thompson MD [address] [facility] [address] [place] [address] Consulting Physician Gynecologic Oncology 12/03/18 Lela Hardy MD PhD [address] [facility] [address] [place] [address] Radiation Oncologist Radiation Oncology 12/23/18 Aft, Kianna Machado MD PhD [address] [facility] [facility] [address] [place] [address] Surgeon Surgical Oncology 12/23/18 09/17/21 documented as of this encounter
--- OUTSIDE RECORDS SUMMARY | 2024-04-24 13:44 | XMS_ITS | Encounter Summary ---
Author Organization [facility] Address [address] [place] [address] Phone Care Team Providers Care Steel Worker Name Role Phone Ravi Smith MD Primary Care Provider [phone] Aft, Kianna Machado MD PhD Unavailable [phone] Santiago Gilbert MD Unavailable [phone] Dmitry Sanderson MD Unavailable [phone] Abbi Ventura MD Unavailable Montse Thompson MD Unavailable [phone] Lela Hardy MD PhD Unavailable [phone] Aft, Kianna Machado MD PhD Unavailable [phone] Encounter Details Date Type Department Care Team (Late st Contact Info) Description 02/05/2019 Orders Only [facility] Pulmonary [address] [facility] Advanced Medicine 8th [place] [address] [place] [address] Cristobal Dong MD [address] [place] [address] Social History Tobacco Use Types [...] on file 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 Do not swallow. 1 each 5 02/05/2019 01/04/2020 documented in this encounter Plan of Treatment Not on file documented as of this encounter Visit Diagnoses Not on filedocumented in this encounter Discontinued Medications Medication Sig Discontinue Reason Start Date End Da te fluticasone propion-salmeterol (WIXELA INHUB) 250-50 mcg/dose diskus inhaler Inhale 1 puff 2 (two) times a day Rinse mouth with water after use. Do not swallow. 02/05/2019 02/05/2019 documented as of this encounter Care Teams Steel Worker Relationship Specialty Start Date End Date Ravi Smith MD PCP - General 11/04/17 09/27/21 Aft, Kianna Machado MD PhD [address] [place] [address] Surgeon Surgical Oncology 11/22/17 Santiago Gilbert MD [address] [place] [address] Forest Patrolman Gastroenterology 11/22/17 Dmitry Sanderson MD [address] [place] [address] Referring Physician Colon and Rectal Surgery 12/03/1805/06 Abbi Ventura MD [address] [facility] [address] [place], [place] [id number] Medical Oncologist/Telegraph Messenger Medical Oncology 12/03/18 Montse Thompson MD [address] [facility] [facility] [address] [place], [place] [address] Consulting Physician Gynecologic Oncology 12/03/18 Lela Hardy MD PhD [address] [facility] [address] [place] [address] Radiation Oncologist Radiation Oncology 12/23/18 Aft, Kianna Machado MD PhD [address] [facility] [address] [place], [place] [id number] Surgeon Surgical Oncology 12/23/18 09/17/21 documented as of this encounter
--- OUTSIDE RECORDS SUMMARY | 2024-04-24 13:44 | XMS_ITS | Encounter Summary ---
Author Organization [facility] Address [address] [place] [address] Phone Care Team Providers Care Farm Hand Name Role Phone Ravi Smith MD Primary Care Provider [phone] Aft, Kianna Machado MD PhD Unavailable [phone] Santiago Gilbert MD Unavailable [phone] Dmitry Sanderson MD Unavailable [phone] Abbi Ventura MD Unavailable Montse Thompson MD Unavailable [phone] Lela Hardy MD PhD Unavailable [phone] Aft, Kianna Machado MD PhD Unavailable [phone] Reason for Visit * Reason Onset Date Comments Anticoagulation 02/09/2019 Encounter Details Date Type Department Care Team (Late st Contact Info) Description 02/09/2019 Telephone [facility] Obstetrics and Gynecology [address] [facility] Advanced Medicine 13th [place] [address] [place] [address] Rika Colby Social History Tobacco Use Types Packs/Day Years [...] on file 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 Pt has been informed and verbalized understanding. documented in this encounter Plan of Treatment Not on file documented as of this encounter Visit Diagnoses Not on filedocumented in this encounter Care Teams Farm Hand Relationship Specialty Start Date End Date Ravi Smith MD PCP - General 11/04/17 09/27/21 Aft, Kianna Machado MD PhD [address] [place] [address] Surgeon Surgical Oncology 11/22/17 Santiago Gilbert MD [address] [place] [address] Brakeshoe Repairer Gastroenterology 11/22/17 Dmitry Sanderson MD [address] [place] [address] Referring Physician Colon and Rectal Surgery 12/03/1805/06 Abbi Ventura MD [address] [place] [address] [address] [place] [address] Medical Oncologist/Information Technology Coordinator Medical Oncology 12/03/18 Montse Thompson MD [address] [facility] [address] [place], [place] [address] Consulting Physician Gynecologic Oncology 12/03/18 Lela Hardy MD PhD [address] [facility] [address] [place], [place] [address] Radiation Oncologist Radiation Oncology 12/23/18 Aft, Kianna Machado MD PhD [address] [place], [place] [address] Surgeon Surgical Oncology 12/23/18 09/17/21 documented as of this encounter
--- OUTSIDE RECORDS SUMMARY | 2024-04-24 13:44 | XMS_ITS | Encounter Summary ---
Author Organization [facility] Address [address] [place] [address] Phone Care Team Providers Care Court Usher Name Role Phone Ravi Smith MD Primary Care Provider [phone] Aft, Kianna Machado MD PhD Unavailable [phone] Santiago Gilbert MD Unavailable [phone] Dmitry Sanderson MD Unavailable [phone] Abbi Ventura MD Unavailable Montse Thompson MD Unavailable [phone] Lela Hardy MD PhD Unavailable [phone] Aft, Kianna Machado MD PhD Unavailable [phone] Encounter Details Date Type Department Care Team (Late st Contact Info) Description 02/05/2019 Telephone [facility] Pulmonary [address] [facility] Advanced Medicine 8th [place] [address] [place] [address] Leroy Cuellar RMA Social History Tobacco Use [...] on file 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 Dong. Mailed Letter. documented in this encounter Plan of Treatment Not on file documented as of this encounter Visit Diagnoses Not on filedocumented in this encounter Care Teams Court Usher Relationship Specialty Start Date End Date Ravi Smith MD PCP - General 11/04/17 09/27/21 Aft, Kianna Machado MD PhD [address] [place] [address] Surgeon Surgical Oncology 11/22/17 Santiago Gilbert MD [address] [place] [address] Diaper Machine Tender Gastroenterology 11/22/17 Dmitry Sanderson MD [address] [place] [address] Referring Physician Colon and Rectal Surgery 12/03/1805/06 Abbi Ventura MD [address] [place] [address] [address] [place] [address] Medical Oncologist/Police Officer Medical Oncology 12/03/18 Montse Thompson MD [address] [place] [address] [address] [place] [address] Consulting Physician Gynecologic Oncology 12/03/18 Lela Hardy MD PhD [address] [place] [address] [address] [place] [address] Radiation Oncologist Radiation Oncology 12/23/18 Aft, Kianna Machado MD PhD [address] [place] [address] [address] [place] [address] Surgeon Surgical Oncology 12/23/18 09/17/21 documented as of this encounter
--- OUTSIDE RECORDS SUMMARY | 2024-04-24 13:44 | XMS_ITS | Encounter Summary ---
Author Organization [facility] Address [address] [place] [address] Care Team Providers Care Death Claim Clerk Name Role Phone Ravi Smith MD Primary Care Provider [phone] Aft, Kianna Machado MD PhD Unavailable [phone] Santiago Gilbert MD Unavailable [phone] Dmitry Sanderson MD Unavailable [phone] Abbi Ventura MD Unavailable Montse Thompson MD Unavailable [phone] Lela Hardy MD PhD Unavailable [phone] Aft, Kianna Machado MD PhD Unavailable [phone] Reason for Referral * Diagnostic Imaging (Routine) - Closed Specialty Diagnoses / Procedures Referred By [facility] Referred To Contact Diagnoses Chronic obstructive pulmonary disease, unspecified COPD type (HCC) Procedures XR Chest Pa Lateral 2 Views Cristobal Dong MD Phone: tel: fax: [facility] Advanced Medicine Referral ID Status Reason Start Date Expiration Date Visits Re quested Visits Authorized [id number] Closed 10/07/2018 04/17/2020 1 1 Reason for Visit * Diagnostic Imaging (Routine) - Closed Specialty Diagnoses / Procedures Referred By [facility] Referred To Contact Diagnoses Chronic obstructive pulmonary disease, unspecified COPD type (HCC) Procedures XR Chest Pa Lateral 2 Views Cristobal Dong MD Phone: tel: fax: [facility] Advanced Medicine Referral ID Status Reason Start Date Expiration Date Visits Re quested Visits Authorized [id number] Closed 10/07/2018 04/17/2020 1 1 Encounter Details Date Type Department Care Team (Latest Contact Info) Description 02/05/2019 9:52 AM CDT - 02/05/2019 9:59 AM CDT Hospital Encounter [facility] [address] [place] [address] Cristobal Dong MD [address] [facility] [address] [place] [address] Chronic obstructive pulmonary disease, unspecified COPD type [...] on file 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 Gender Identity Not on file Sexual Orientation [...] a day 60 capsule 1 02/14/2019 9 docusate sodium (COLACE) 100 mg capsuleIndicatio ns:constipation, Stool Softener Take 1 capsule (100 mg total) by mouth 2 (two) times a day 60 capsule 1 02/14/2019 9 dulaglutide (TRULICITY) 0.75 mg/0.5 mL pen injectorIndicati ons:type 2 diabetes mellitus,saturday Inject 0.75 mg under the skin every 7 days Saturday 1 hydroCHLOROthiaz frederick (HYDRODIURIL) 12.5 mg tabletIndication s:hypertension Take 12.5 mg by mouth every morning 0 02/24/2018 2 ibuprofen (ADVIL,MOTRIN) 600 mg tabletIndication s:Pain Take 1 tablet (600 mg total) by mouth every 6 (six) hours 45 tablet 1 02/14/2019 9 LORazepam (ATIVAN) 0.5 mg tabletIndication s:Malignant neoplasm [...] hours as needed for pain 8 tablet 11/11/2018 9 oxyCODONE (ROXICODONE) 5 mg immediate release tabletIndication [...] Comments XR CHEST PA LATERAL 2 VIEWS Routine 02/05/2019 9:57 AM CDT Chronic obstructive pulmonary disease, unspecified COPD type (CMS/HCC) documented in this encounter Results * XR Chest Pa Lateral 2 Views (02/05/2019 9:57 AM CDT) Anatomical Region Laterality Modality Body, Chest N/A Computed Radiogr aphy 02/05/2019 10:2 9 AM CDT Impressions 02/05/2019 10:29 AM CDT There are no prior chest radiographs at [facility] for comparison. A right internal jugular catheter is in place, tip overlies the superior vena cava.. The heart and mediastinal contours are normal. ??There is no mass or consolidation. ??There is no lymphadenopathy. ??There are no pleural effusions. ??There is no pneumothorax. There is old granulomatous disease. Electronically signed by: Gladys Shepherd M.D. Narrative 02/05/2019 10:29 AM CDT EXAMINATION: 2 view chest radiograph Procedure Note Gladys Shepherd MD - 02/05/2019 EXAMINATION: 2 view chest radiograph IMPRESSION: There are no prior chest radiographs at [facility] for comparison. A right internal jugular catheter is in place, tip overlies the superior vena cava.. The heart and mediastinal contours are normal. There is no mass or consolidation. There is no lymphadenopathy. There are no pleural effusions. There is no pneumothorax. There is old granulomatous disease. Electronically signed by: Gladys Shepherd M.D. Cristobal Dong MD IMG XR PROCEDURES Final Result documented in this encounter Visit Diagnoses Diagnosis Chronic obstructive pulmonary disease, unspecified COPD type (HCC) documented in this encounter Care Teams Death Claim Clerk Relationship Specialty Start Date End Date Ravi Smith MD PCP - General 11/04/17 09/27/21 Aft, Kianna Machado MD PhD [address] [place] [address] Surgeon Surgical Oncology 11/22/17 Santiago Gilbert MD [address] [place] [address] Recreation Attendant Supervisor Gastroenterology 11/22/17 Dmitry Sanderson MD [address] [place] [address] Referring Physician Colon and Rectal Surgery 12/03/1805/06 Abbi Ventura MD [address] [place] [address] [address] [place] [address] Medical Oncologist/Car Deliverer Medical Oncology 12/03/18 Montse Thompson MD [address] [place] [address] [address] [place] [address] Consulting Physician Gynecologic Oncology 12/03/18 Lela Hardy MD PhD [address] [place] [address] [address] [place] [address] Radiation Oncologist Radiation Oncology 12/23/18 Aft, Kianna Machado MD PhD [address] [place] [address] [address] [place] [address] Surgeon Surgical Oncology 12/23/18 09/17/21 documented as of this encounter
--- OUTSIDE RECORDS SUMMARY | 2024-04-24 13:44 | XMS_ITS | Encounter Summary ---
Author Organization [facility] Address [address] [place] [address] Care Team Providers Care Hospice Clinical Manager Name Role Phone Ravi Smith MD Primary Care Provider [phone] Aft, Kianna Machado MD PhD Unavailable [phone] Santiago Gilbert MD Unavailable [phone] Dmitry Sanderson MD Unavailable [phone] Abbi Ventura MD Unavailable Montse Thompson MD Unavailable [phone] Lela Hardy MD PhD Unavailable [phone] Aft, Kianna Machado MD PhD Unavailable Reason for Visit * Reason Comments OTV Encounter Details Date Type Department Care Team (Late st Contact Info) Description 02/04/2019 OTV [facility] Radiation Oncology at [facility] Cancer [facility] [address] [place] [address] Lela Hardy MD PhD [address] [facility] [address] [facility] [address] [place] [address] Malignant neoplasm of upper-inner quadrant of left [...] on file Legal Sex Female 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 AM 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 Gender Identity Not on file Sexual Orientation Not on file documented as of this encounter Last Filed Vital Signs Vital Sign Reading Time Taken Comments Blood Pressure - - Pulse - - Temperature - - Respiratory Rate - - Oxygen Saturation - - Inhaled Oxygen Concentration - - Weight 107 kg (235 lb 12.8 oz) 02/04/2019 2:45 P M CDT Height - - Body Mass Index 34.82 12/25/2018 9:12 AM CDT documented in this encounter Progress Notes * Alverto Baker MD PhD - 02/04/2019 2:43 PM CDT Staff Physician: Lela Hardy MD PhD Referring Physician: Patient Care Team: Dmitry Sanderson MD as Referring Physician (Colon and Rectal Surgery) Kianna Bunch MD PhD as Referring Physician (Surgical Oncology) Date of Service: 02/04/2019 RADIATION ONCOLOGY ON TREATMENT VISIT (OTV) NOTE Diagnosis: Cancer Staging Malignant neoplasm of upper-inner quadrant of left breast in female, 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) Staging form: Breast, AJCC 8th Edition - Pathologic: Stage IIA (pT2, pN0(sn), cM0, G3, ER-, AR-, HER2-) - Signed by Roger Dorsey MD on 12/23/2018 - Clinical: Stage IIB (cT2, cN0, cM0, G3, ER-, AR-, HER2-) - Signed by Lela Hardy MD PhD on01/01/2019 63 y/o F with synchronous breast and colon cancers, BRCA2 mutation, declined prophylactic bilat mastectomy, pending bilat BSO. 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 She is currently receiving 4256 cGy whole breast irradiation followed by aLUIQ boost of 10 Gy in the prone position. TREATMENT: She has received 16/16 fractions whole breast, and 5/5 fractions of the boost. Staggered boost / whole breast start 2/2 setup difficulty. SUBJECTIVE: She states that she is doing overall well today with exception of continued fatigue. She also notesslight increase in left breast tenderness, left nipple discomfort. Discomfort, however, is manageable, and she does not require any treatment in addition to current good regimen. She also noted continued mucositis for which she continues to use Magic mouthwash, salt water rinses with reasonable control. Continues to have right shoulder, low back, right hip pain that is unchanged in quality, severity, distribution compared to prior. She states she is planned for MRI pelvis to be completed on February 06, but no encounter to be entered in this regard. She also denies any masses or changes in her breast or chest wall, headaches, vision changes, gait instability, cough, shortness of breath, nausea, abdominal pain. EXAM: Wt 107 kg (235 lb 12.8 oz) BMI 34.82 kg/m?? There were no vitals filed for this visit. General: NAD Pulm: Normal work of breathing Neuro: AOx4, gait WNL, speech clear Hyperpigmentation: absent Breast or Chest Wall:1 - Faint erythema or dry desquamation Axilla:1 - Faint erythema or dry desquamation Inframammary Sulcus: 1 - Faint erythema or dry desquamation Fatigue: 1 - Fatigue relieved by rest ASSESSMENT Experiencing anticipated side effects PLANS Treatment complete RAD ONC PAIN PLAN: The patient is not currently having any pain that requires changes in pain management. Recommended continued skin care Will have patient follow up in clinic in approximately 6 weeks Alverto Baker MD, PhD Radiation Oncology, PGY2 02/04/2019 4:32 PM Cosigned by Lela Hardy MD PhD at 02/05/2019 4:51 PM CDT Associated attestation - Lela Hardy MD PhD - 02/05/2019 4:51 PM CDT I have seen and examined this patient today. I discussed the case with the resident and agree with the findings and plan as documented in the resident's note. Discussed post-RT skin care recs. F/U 6 wks, instructed to call in interim with any concerns. Regarding her shoulder and back pain, another provided had ordered an MRI but this was cancelled. She has persistent pain but no neuro symptoms. She prefers to monitor her symptoms for now and get imaging if the pain does not resolve. We instructed her to notify us of any worsening pain or new symptoms in the interim. documented in this encounter Plan of Treatment Not on file documented as of this encounter Visit Diagnoses Diagnosis Malignant neoplasm of upper-inner quadrant of left breast in female, estrogen receptor negative (HCC)- Primary documented in this encounter Care Teams Hospice Clinical Manager Relationship Specialty Start Date End Date Ravi Smith MD PCP - General 11/04/17 09/27/21 Aft, Kianna Machado MD PhD [address] [place] [address] Surgeon Surgical Oncology 11/22/17 Santiago Gilbert MD [address] [place] [address] Casing Builder Gastroenterology 11/22/17 Dmitry Sanderson MD [address] [place] [address] Referring Physician Colon and Rectal Surgery 12/03/1805/06 Abbi Ventura MD [address] [place] [address] [address] [place] [address] Medical Oncologist/Apple Checker Medical Oncology 12/03/18 Montse Thompson MD [address] [facility] [address] [place] [address] Consulting Physician Gynecologic Oncology 12/03/18 Lela Hardy MD PhD [address] [facility] [address] [place] [address] Radiation Oncologist Radiation Oncology 12/23/18 Aft, Kianna Machado MD PhD [address] [facility] [address] [place] [address] Surgeon Surgical Oncology 12/23/18 09/17/21 documented as of this encounter
--- OUTSIDE RECORDS SUMMARY | 2024-04-24 13:44 | XMS_ITS | Encounter Summary ---
Author Organization [facility] Healthcare Address [address] [place] [address] Care Team Providers Care Ramp Lead Name Role Phone Ravi Smith MD Primary Care Provider [phone] Aft, Kianna Machado MD PhD Unavailable [phone] Santiago Gilbert MD Unavailable [phone] Dmitry Sanderson MD Unavailable [phone] Abbi Ventura MD Unavailable Montse Thompson MD Unavailable [phone] Lela Hardy MD PhD Unavailable Aft, Kianna Machado MD PhD Unavailable [phone] Encounter Details Date Type Department Care Team (Late st Contact Info) Description 02/13/2019 7:23 AM CDT Anesthesia Event [facility] Operating Room [address] [place] [id number] Antony Lester Sr., MD [address] [place], [place] [id number] Maria Elena Rodriguez NP [address] [facility] [id number] [place] [address] Anesthesia Record Procedure Summary Procedure Name Responsible Anesthesiologist Anesthesia Start Time Anesthesia Stop Time Diagnostic Laparoscopy (Abdomen) Antony Lester Sr., MD 02/13/19 0723 02/13/19 1104 Events Date Time Event Comment 02/13/2019 0700 0723 An Start 0729 In Room 0729 An Start Data 0737 An Induction The patient was reevaluated immediately before moderate or deep sedation use and before anesthesia induction. 0739 An Intubation 0756 Proc Start 0810 Anesthesia Ready 0820 Incision Start 1056 Proc Fin 1057 An Extubation 1100 Out of Room 1104 Handoff to RN I completed my handoff [...] disposition at the time of handoff: PACU 1104 An Stop 1107 an stop data 1238 Release from care Meds Name Total midazolam PF 2 mg fentaNYL 200 mcg propofol 160 mg rocuronium 80 mg HYDROmorphone 2 mg/mL 1 mg ondansetron PF (ZOFRAN) 2 mg/mL injectio n 4 mg glycopyrrolate 0.2 mg neostigmine injection 1 mg/mL 2 mg phenylephrine infusion 6.55 mg ceFAZolin 2,000 mg Lactated Ringer's (LR) infusion 1,200 mL * Agents Name O2% N2O O2 Air Sevoflurane Inspired Sevoflurane * Blood No blood administrations on file. Lines, Drains, and Airways Type Details Placement Removal Implanted Port Placement Date: 01/14/18; Type: Power; Orientation: Right; Location: Chest; Inserted by: DR GAY; Removal Time: 04/09/19; Removal Reason: 0848 01/14/18 0000 by Cat Boss 04/09/19 0848 by Deana Soria, LYDIA RETIRED Surgical Site 02/13/19; 0658; Perineum; 05/04/19; Removal date unknown/not present on admission 02/13/19 0658 by Cat rBar RN 05/04/19 0000 by Reina Grullon RN Urethral Catheter Placement Date: 02/13/19; Placement Time: 0805; Inserted by: Deepa Shah MD; Type: Non-latex; Size: 16 Fr.; Balloon Size: 10 mL; Urine Returned: Yes; Removal Date: 02/13/19; Removal Time: 1031 02/13/19 0805 by Cat Brar RN 02/13/19 103 by Cat Brar RN ETT Placement Date: 02/13/19; Placement Time: 08 (created via procedure documentation); Mask Ventilation: 1; Technique: Direct laryngoscopy; Type: ETT - single; Single Lumen Tube Size: 7 mm; Cuffed: Yes; Laryngoscope: Lauren; Blade Size: 3; Location: Oral; Grade View: Grade I; Insertion Attempts: 1; Placement Verification: Auscultation, Capnometry; Removal Date: 02/13/19; Removal Time: 10502/13/19 0823 by Lily Parada CRNA 02/13/19 105 by Lily Parada CRNA documented in this encounter Social History Tobacco [...] on file 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 Gender Identity Not on file Sexual Orientation Not on file documented as of this encounter OR Notes * Anesthesia Postprocedure Evaluation - Anita Ozuna MD - 02/13/2019 12:38 PM CDT Patient: Aleah Gerber Procedure Summary Date: 02/13/19 Room / Location: [facility] OR POD 1 ROOM 327 / [facility] OR POD 1 Anesthesia Start: 722 Anesthesia Stop: 1103 Procedures: Diagnostic Laparoscopy (N/A Abdomen) Si Robotic Assisted Total Laparoscopic Hysterectomy (N/A Pelvis) Si Robotic Assisted Laparoscopic Salpingo Oophorectomy (Bilateral Abdomen) Cystoscopy (N/A Urethra) Diagnosis: Malignant neoplasm of upper-inner quadrant of left breast in female, 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) BRCA2 gene mutation positive in female (Malignant neoplasm of upper-inner quadrant of left breast in female, 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) [C50.212, Z17.1]) (BRCA2 gene mutation positive in female [Z15.01, Z15.02, Z15.09]) Surgeon: Montse Thompson MD Responsible Provider: Antony Lester Sr., MD Anesthesia Type: general ASA Status: 2 Anesthesia Type: general Last vitals BP 117/62 Pulse 64 Temp 36.4 ??C (97.5 ??F) (Temporal) Resp 16 SpO2 99% Anesthesia Post Evaluation Patient location during evaluation: PACU Patient participation: complete - patient participated Level of consciousness: fully awake Pain score: 2 Pain management: adequate Airway patency: adequate Evidence of recall: no Anesthetic complications: no Cardiovascular status: acceptable and hemodynamically stable Respiratory status: acceptable Hydration status: acceptable Pt is: normothermic Nausea/Vomiting status: none * Anesthesia Procedure Notes - Lily Parada CRNA - 02/13/2019 8:22 AM CDTAssociated Order(s): Airway Airway Patient location: OR Urgency: elective Indications for airway management: anesthesia Difficult airway: no Staff: Supervising provider: Antony Lester Sr., MD Placed by: BUSINESS EDUCATION TEACHER: Lily Parada CRNA Emergent airway documentation: Risks and benefits discussed: yes Consent obtained: yes Consent given by: patient Airway prep: Preoxygenated: yes Patient position: sniffing MILS maintained throughout: yes Mask difficulty assessment: 1 - vent by mask Sedation level during airway: GA Final airway details: Final airway type: endotracheal airway Tube type: ETT ETT size: 7.0 mm Cuffed: yes Technique used for successful ETT placement: direct laryngoscopy Devices/Methods used in placement: intubating stylet Insertion site: oral Blade type: Lauren Blade size: 3 Cormack-Lehane (direct): grade I - full view of glottis Cuff inflated with: air ETT to teeth: 21 cm Placement verified by: auscultation and CO2 detection Airway secured with: silk tape Number of attempts: 1 * Anesthesia Preprocedure Evaluation - Antony Lester Sr., MD - 02/05/2019 2:55 PM CDT Images from the original note were not included. [facility] Preoperative Assessment and Planning Preoperative Evaluation Record [facility] at [facility] ([facility]) Date: 02/09/19 Anesthesia Evaluation Aleah Gerber is a 63 y.o. female Procedure(s): LAPAROSCOPY DIAGNOSTIC - OPERATIVE SI HYSTERECTOMY - LAPAROSCOPIC ROBOTIC ASSISTED - ABDOMINAL SI SALPINGO-OOPHORECTOMY - LAPAROSCOPIC ROBOTIC ASSISTED CYSTOSCOPY EXPLORATORY LAPAROTOMY Pre-Op Diagnosis Codes: * Malignant neoplasm of upper-inner quadrant of left breast in female, 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) [C50.212, Z17.1] * BRCA2 gene mutation positive in female [Z15.01, Z15.02, Z15.09] HISTORY HPI Aleah Gerber is a 63 y.o. female who is being evaluated prior to undergoing LAPAROSCOPY ??DIAGNOSTIC - OPERATIVE (Bilateral Abdomen) - 1.5 hours ?SI HYSTERECTOMY - LAPAROSCOPIC ROBOTIC ASSISTED - ABDOMINAL (Bilateral Pelvis) ?SI SALPINGO-OOPHORECTOMY - LAPAROSCOPIC ROBOTIC ASSISTED (Bilateral Abdomen) ?CYSTOSCOPY (N/A Urethra) ?EXPLORATORY LAPAROTOMY (N/A Abdomen) Anesthesia type: General Diagnosis: ?Malignant neoplasm of upper-inner quadrant of left breast in female, estrogen Past Medical History Information obtained from: patient and chart. Neurological + TIA (TIA x1 > 15 yrs ago) Number of TIA episodes: 1. + Seizures + Psychiatric history - anxiety Pertinent negatives: CVA/stroke and dementia/mild cognitive impairment Cardiovascular + Hypertension (HTN Dx'd in 2018) + DVT/PE (05/28 right lower leg DVT / PE.) Number of DVT/PE episodes: 1. Respiratory + COPD - chronic bronchitis. + Asthma (stable asthma. Onset of SOB was with chemotherapy started in 2019. Sx's becoming less severe since last chemotherapy in 08/2018 ) Dyspnea frequency: daily. Rescue inhaler use: 2 days/week or less. Hepatic / Heme + History of anemia - iron deficiency Endocrine / Other + Diabetes mellitus (DM Type II Dx'd in 2019 ) - Diabetes type 2. Pt reported low glucose range is 117. Pt reported high glucose range is 130. Pt reported HgA1c: 6.5. Pt reported HgA1c date: 02/05/2019. + Obesity (BMI >30) + Cancer history (Histoery of BRCA2 mutation)- current cancer. Cancer type: 2019--Left Breast Cancer S/p chemo (completed 08/2018 and radiation completed 02/04/2019. 2019--Colon . Functional Capacity Functional capacity: <4 METs Comments: IMPRESSION: 1. Extensive acute pulmonary embolism as described above. Right lower extremity deep vein thrombosis. 2. No evidence of metastatic disease involving chest, abdomen or pelvis. Review of Systems + pedal edema (Right lower extremity swelling) Comments: History of Mucositis PAT Summary and Plans Cardiac risk classification of planned procedure: intermediate cardiac risk. Preoperative assessment status: lab tests ordered. Additional comments: Aleah Gerber is a 63 y.o. female who is being evaluated prior to undergoing an intermediate cardiac risk surgery. Revised Cardiac Risk Index factors are (none) for a total RCRIof 0 out of 6. Functional capacity is <4 METs (specifically: IMPRESSION: 1. Extensive acute pulmonary embolism as described above. Right lower extremity deep vein thrombosis. 2. No evidence of metastatic disease involving chest, abdomen or pelvis.). Case discussed with Attending. Re: Pt takes daily Xarelto for tx DVT / PE The patient is on oral anticoagulation therapy with dabigatran (PRADAXA) and apixaban (ELIQUIS) Estimated creatinine clearance is 74 ml/min. For this procedure and anesthetic, our estimation of bleeding-associated risks is high in that the possibility of a small amount of residual anticoagulation at the time of surgery would be unacceptable. Therefore we recommend holding all doses of this anticoagulant for 3 days (72 hours) prior to the procedure. Therapeutic anticoagulation should be resumed post-operatively when the bleeding risk is acceptable. Oral anticoagulation is typically not resumedfor higher bleeding risk cases for 2-3 days or longer. Alternative anticoagulation therapies can be used in the interim if acceptable. Discussed with Shannon in surgeon's office. Please call the CPAP attending ([phone]) to revisit bleeding risk assessment, with any questions, or to discuss alternative management plans. Do not use for dabigatran/Pradaxa if possible neuraxial/peripheral nerve block. Obstructive sleep apnea (VIOLETTE) screening status is STOP-Bang=3 suggesting moderate risk for VIOLETTE. The patient is at elevated [...] after surgery about getting tested for VIOLETTE. Blood bank needs for day of procedure: Type and Screen only Pending labs/tests include: CBC BMP T&S Pt given Chlorhexidne Scrub Preoperative evaluation performed by Maria Elena Rodriguez NP on 02/05/19 at 2:56 PM. . Follow up note Labs reviewed and are without significant findings. Surgeon's office reviews laboratory results independently. Awaiting final read on PFTs performed yesterday. Follow-up completed by: Maria Elena Rodriguez NP on 02/09/19 at 2:44 PM Follow up note 02/09/2019 PFT Physician Report received and reviewed with Attending. See petinent diagnostic tests Section inPAT note. PAT Process complete. Follow-up completed by: Maria Elena Rodriguez NP on 02/09/19 at 2:44 PM Discussed with: Dr Lev MD Patient Active Problem List Diagnosis ??? Malignant [...] smear ??? Chronic obstructive pulmonary disease (CMS/HCC) Past Medical History: Diagnosis Date ??? Anemia [...] and no radiation ??? Colon cancer (CMS/HCC) 2018 ??? Colon polyps ??? COPD (chronic obstructive pulmonary disease) (CMS/HCC) ??? COPD (chronic obstructive pulmonary disease) (CMS/HCC) ??? Depression ??? Diabetes 1.5, managed as type 2 (CMS/HCC) ??? DVT (deep vein thrombosis) in 05/2017 [...] ??? TIA (transient ischemic attack) 2008 ??? Vascular disease Past Surgical History: Procedure Laterality Date ??? BLADDER SUSPENSION 2010 ??? BREAST BIOPSY Left 11/12/2017 ??? BREAST BIOPSY Right 2009 Benign ??? BREAST LUMPECTOMY 2017 ??? COLONOSCOPY 2017 ??? HEMICOLECTOMY Left 12/27/2017 Laparoscopic left hemicolectomy ??? HERNIA REPAIR 1970's ??? INCONTINENCE SURGERY 2007 ??? INGUINAL HERNIA REPAIR Right 1970 ??? MASTECTOMY, PARTIAL Left 01/14/2018 Biopsy Breast Needle Localization partial mastectomy (L), Biopsy [place] Lymph Node With Lymphoscintigraphy (L), Insertion Port [...] Med List Status: Nurse Complete Set By: Natty Parsons RN at 02/05/2019 2:46 PM Taking? Last Dose Start Date End Date Provider acetaminophen (TYLENOL) 500 mg tablet -- -- Historical Provider, albuterol HFA (PROVENTIL HFA,VENTOLIN HFA,PROAIR HFA) 90 mcg/actuation inhaler -- -- Historical Provider, ALPRAZolam (XANAX) 0.25 mg tablet 11/07/17 -- Historical Provider, atorvastatin (LIPITOR) 20 mg tablet 02/21/18 -- Historical Provider, biotin 1 mg capsule -- -- Historical Provider, cholecalciferol (VITAMIN D3) 2,000 unit capsule 10/04/17 -- Historical Provider, desoximetasone (TOPICORT) 0.25 % cream 01/07/19 -- Lela Hardy MD PhD Apply to affected area every night prior to vanicream dulaglutide (TRULICITY) 0.75 mg/0.5 mL pen injector -- -- Historical Provider, fluticasone propion-salmeterol (ADVAIR DISKUS) 250-50 mcg/dose diskus inhaler 02/05/19 -- Cristobal Dong MD Inhale 1 puff 2 (two) times a day Rinse mouth with water after use. Do not swallow. hydroCHLOROthiazide (HYDRODIURIL) 12.5 mg tablet 02/24/18 -- Historical Provider, LORazepam (ATIVAN) 0.5 mg tablet 01/14/19 -- Lela Hardy MD PhD Take 1 tablet (0.5 mg total) by mouth daily Take one tablet one hour prior to radiation treatments daily. magnesium oxide 400 mg magnesium capsule -- -- Historical Provider, oxyCODONE (ROXICODONE) 5 mg immediate release tablet 11/11/18 -- Jennifer Overton MD Take 1 tablet (5 mg total) by mouth every 4 (four) hours as needed for pain potassium chloride ER (KLOR-CON,K-DUR) 10 mEq CR tablet 10/01/18 10/01/19 Abbi Ventura MD Take 1 tablet/capsule (10 mEq total) by mouth 2 (two) times a day Patient taking differently: Take 10 mEq by mouth 2 (two) times a day rivaroxaban (XARELTO) 20 mg tablet 06/13/18 -- Abbi Ventura MD Take 1 tablet (20 mg total) by mouth daily. Patient taking differently: Take 20 mg by mouth nightly sertraline (ZOLOFT) 50 mg tablet 10/23/18 -- Historical Provider, sitaGLIPtin-metformin (JANUMET XR) 100-1,000 mg tablet, ER multiphase 24 hr -- -- Historical Provider, Current Outpatient Medications: ??? acetaminophen (TYLENOL) 500 mg tablet ??? albuterol HFA (PROVENTIL HFA,VENTOLIN HFA,PROAIR HFA) 90 mcg/actuation inhaler ??? ALPRAZolam (XANAX) 0.25 mg tablet ??? atorvastatin (LIPITOR) 20 mg tablet ??? biotin 1 mg capsule ??? cholecalciferol (VITAMIN D3) 2,000 unit capsule ??? desoximetasone (TOPICORT) 0.25 % cream ??? dulaglutide (TRULICITY) 0.75 mg/0.5 mL pen injector ??? fluticasone propion-salmeterol (ADVAIR DISKUS) 250-50 mcg/dose diskus inhaler ??? hydroCHLOROthiazide (HYDRODIURIL) 12.5 mg tablet ??? LORazepam (ATIVAN) 0.5 mg tablet ??? magnesium oxide 400 mg magnesium capsule ??? oxyCODONE (ROXICODONE) 5 mg immediate release tablet ??? potassium chloride ER (KLOR-CON,K-DUR) 10 mEq CR tablet ??? rivaroxaban (XARELTO) 20 mg tablet ??? sertraline (ZOLOFT) 50 mg tablet ??? sitaGLIPtin-metformin (JANUMET XR) 100-1,000 mg tablet, ER multiphase 24 hr Social History Tobacco Use Smoking Status Former Smoker ??? Packs/day: 1.00 ??? Types: Cigarettes ??? Start date: 1972 ??? Last attempt to quit: 2014 ??? Years since quittin.7 Smokeless Tobacco Never Used Substance and Sexual [...] Paternal Grandmother ??? Anesthesia problems Neg Hx PAT Physical Exam Cardiovascular Exam: Rate: regular Rhythm: regular Pulmonary Exam: LCTA, bilat EENT Exam: trachea midline Dental Exam: Appears intact Skin Exam: Skin is warm and dry. Turgor is normal. Abdominal exam: Abdomen is soft. Bowel sounds are present. Current state: Patient's current state is cooperative. Line/Drains/Tubes/Devices: Lines and tubes in place: Right upper chest PORT. Additional comments: RLE trace edema Vitals: 02/05/19 1448 BP: 137/57 Pulse: 81 SpO2: 94% Relevant diagnostics: ECG(s): 02/05/2019: NSR (Hr=83 bpm); incomplete RBBB Echocardiogram(s): 08/07/2018 DOPPLER/COLOR FOLOW DOPPLER COMMENTS: No AR seen, [...] Stress test(s): N/A Cardiac catheterization(s): N/A PFT(s): 02/05/2019 PFT's FEV-1 Post=2.29 ( 79% pred) Six Min Walk Test: Interpretation: Breathing room air, SpO2 is normal at rest and during exercise sufficient to increase pulse from 76to 126 b/min, SpO2 is stable. On this basis, SpO2 is adequate at rest breathing room air and while walking breathing room air. This level of exercise is associated with no significant change of FEV1. Vascular studies: N/A Other: 02/05/2019 CXR: There are no prior chest radiographs at [facility] for comparison. A right internal jugular catheter is in place, tip overlies the superior vena cava.. The heart and mediastinal contours are normal. There is no mass or consolidation. There is no lymphadenopathy. There are no pleural effusions. There is no pneumothorax. There is old granulomatous disease. 05/28/2018 XCT Chest Abdomen Pelvis: IMPRESSION: 1. Extensive acute pulmonary embolism as described above. Right lower extremity deep vein thrombosis. 2. No evidence of metastatic disease involving chest, abdomen or pelvis. STOP-Bang Total Score: 3 Ele index score: 100 DOS Physical Exam Medical history, medications, and allergies reviewed. Attestation: This PAT evaluation Airway Exam: Mallampati: II Cervical ROM: FROM TM distance: 3 Cardiovascular Exam: Rate: regular Rhythm: regular Pulmonary Exam: LCTA EENT Exam: trachea midline Dental Exam: Appears intact Abdominal Exam: Abdomen is soft. Bowel sounds are increased. Current state: Patient's current state is cooperative and interactive. Anesthesia Plan ASA 2 Planned anesthesia: General Team communication plan: oral ET tube Induction: Induction: intravenous. Postoperative Plan: Postoperative administration opioids intended. No postoperative mechanical ventilation intended. Patient's planned disposition post procedure is Floor. No trial extubation planned. Informed Consent: Discussed plan with BUSINESS EDUCATION TEACHER. Anesthesia plan and risks discussed with patient and daughter. Consent and Attending signature: I and/or my designee have discussed the anesthesia plan, benefits, possible alternatives, parental presence at time of induction (if indicated), and clinically relevant risks that may include dental injury, unintentional awareness, and/or other complications. The patient and/or parent/legal guardian understand, and agree to proceed. All questions answered. documented in this encounter Plan of Treatment Not on file documented as of this encounter Procedures Procedure Name Priority Date/Time Associated Diagnosis Comments TN AN PROCEDURE PLACEHOLDER Routine 02/13/2019 8:22 AM CDT Procedure Note - Lily Parada CRNA - 02/13/2019 8:22 AM CDTThis note is in progress. Airway Patient location: OR Urgency: elective Indications for airway management: anesthesia Difficult airway: no Staff: Supervising provider: Antony Lester Sr., MD Placed by: BUSINESS EDUCATION TEACHER: Lily Parada CRNA Emergent airway documentation: Risks and benefits discussed: yes Consent obtained: yes Consent given by: patient Airway prep: Preoxygenated: yes Patient position: sniffing MILS maintained throughout: yes Mask difficulty assessment: 1 - vent by mask Sedation level during airway: GA Final airway details: Final airway type: endotracheal airway Tube type: ETT ETT size: 7.0 mm Cuffed: yes Technique used for successful ETT placement: direct laryngoscopy Devices/Methods used in placement: intubating stylet Insertion site: oral Blade type: Lauren Blade size: 3 Cormack-Lehane (direct): grade I - full view of glottis Cuff inflated with: air ETT to teeth: 21 cm Placement verified by: auscultation and CO2 detection Airway secured with: silk tape Number of attempts: 1 TN AN ELECTIVE ENDOTRACHEAL AIRWAY Routine 02/13/2019 8:22 AM CDT Procedure Note - Lily Parada CRNA - 02/13/2019 8:22 AM CDTThis note is in progress. Airway Patient location: OR Urgency: elective Indications for airway management: anesthesia Difficult airway: no Staff: Supervising provider: Antony Lester Sr., MD Placed by: BUSINESS EDUCATION TEACHER: Lily Parada CRNA Emergent airway documentation: Risks and benefits discussed: yes Consent obtained: yes Consent given by: patient Airway prep: Preoxygenated: yes Patient position: sniffing MILS maintained throughout: yes Mask difficulty assessment: 1 - vent by mask Sedation level during airway: GA Final airway details: Final airway type: endotracheal airway Tube type: ETT ETT size: 7.0 mm Cuffed: yes Technique used for successful ETT placement: direct laryngoscopy Devices/Methods used in placement: intubating stylet Insertion site: oral Blade type: Lauren Blade size: 3 Cormack-Lehane (direct): grade I - full view of glottis Cuff inflated with: air ETT to teeth: 21 cm Placement verified by: auscultation and CO2 detection Airway secured with: silk tape Number of attempts: 1 documented in this encounter Visit Diagnoses Not on filedocumented in this encounter Administered Medications Inactive Administered Medications - up to 3 most recent administrations Medication Order MAR Action Action Date Dose Rate Site ceFAZolin (ANCEF) injection intravenous, As needed, Starting on Sat02/13/19 at 0747, Anesthesia Intra-op Given 02/13/2019 7:47 AM CDT 2,000 mg fentaNYL (SUBLIMAZE) preservative free injection intravenous, As needed, Starting on Sat02/13/19 at 0737, Anesthesia Intra-op Given 02/13/2019 9:57 AM CDT 50 mcg Given 02/13/2019 7:53 AM CDT 50 mcg Given 02/13/2019 7:37 AM CDT 100 mcg glycopyrrolate (ROBINUL) injection intravenous, Administer over 1 Minutes, As needed, Starting on Sat02/13/19 at 1043, Anesthesia Intra-op Given 02/13/2019 10:43 AM CDT 0.2 mg HYDROmorphone (DILAUDID) injection intravenous, Administer over 2 Minutes, As needed, Starting on Sat02/13/19 at 1053, Anesthesia Intra-op Given 02/13/2019 10:53 AM CDT 0.4 mg Given 02/13/2019 10:49 AM CDT 0.6 mg Lactated Ringer's (LR) infusion 30 mL/hr, intravenous, Continuous, Starting on Sat02/13/19 at 0615, Pre-Op New Bag 02/13/2019 10:33 AM CDT New Bag 02/13/2019 7:23 AM CDT midazolam (VERSED) preservative free injection intravenous, Administer over 2 Minutes, As needed, Starting on Sat02/13/19 at 0727, Anesthesia Intra-op Given 02/13/2019 7:27 AM CDT 2 mg neostigmine (PROSTIGMIN) injection intravenous, Administer over 3 Minutes, As needed, Starting on Sat02/13/19 at 1043, Anesthesia Intra-op Given 02/13/2019 10:43 AM CDT 2 mg ondansetron (ZOFRAN) injection intravenous, Administer over 2 Minutes, As needed, Starting on Sat02/13/19 at 1043, Anesthesia Intra-op Given 02/13/2019 10:43 AM CDT 4 mg phenylephrine ([place]-SYNEPHRINE) 5 mg/50 mL (100 mcg/mL) in sodium chloride 0.9% (premix) Continuous PRN, Starting on Sat02/13/19 at 0801, Anesthesia Intra-op Rate/Dose Change 02/13/2019 9:51 AM CDT 0.3 mcg/kg/min 19.19 mL/hr New Bag 02/13/2019 8:01 AM CDT 0.4 mcg/kg/min 25.6 mL/h r propofol (DIPRIVAN) IV intravenous, As needed, Starting on Sat02/13/19 at 0737, Anesthesia Intra-op Given 02/13/2019 7:37 AM CDT 160 mg rocuronium (ZEMURON) injection intravenous, As needed, Starting on Sat02/13/19 at 0737, Anesthesia Intra-op Given 02/13/2019 9:27 AM CDT 10 mg Given 02/13/2019 8:54 AM CDT 10 mg Given 02/13/2019 7:37 AM CDT 60 mg documented in this encounter Orders Procedures Count Last Ordered Date First Orde red Date Airway 1 02/13/2019 documented in this encounter Care Teams Ramp Lead Relationship Specialty Start Date End Date Ravi Smith MD PCP - General 11/04/17 09/27/21 Aft, Kianna Machado MD PhD [address] [place] [address] Surgeon Surgical Oncology 11/22/17 Santiago Gilbert MD [address] [place] [address] Superintendent [employer] Gastroenterology 11/22/17 Dmitry Sanderson MD [address] [place] [address] Referring Physician Colon and Rectal Surgery 12/03/1805/06 Abbi Ventura MD [address] [facility] [address] [place], [place] [id number] Medical Oncologist/Jr. Systems Administrator Medical Oncology 12/03/18 Montse Thompson MD [facility] [address] [place], [place] [id number] Consulting Physician Gynecologic Oncology 12/03/18 Lela Hardy MD PhD [facility] [address] [place], [place] [id number] Radiation Oncologist Radiation Oncology 12/23/18 Aft, Kianna Machado MD PhD [facility] [address] [place] [address] Surgeon Surgical Oncology 12/23/18 09/17/21 documented as of this encounter
--- OUTSIDE RECORDS SUMMARY | 2024-04-24 13:44 | XMS_ITS | Encounter Summary ---
Author Organization [facility] Facility Care Team Providers Care Associate Director Finance Name Role Phone Ravi Smith MD Primary Care Provider [phone] Aft, Kianna Machado MD PhD Unavailable [phone] Santiago Gilbert MD Unavailable [phone] Dmitry Sanderson MD Unavailable [phone] Abbi Ventura MD Unavailable Montse Thompson MD Unavailable [phone] Lela Hardy MD PhD Unavailable [phone] Aft, Kianna Machado MD PhD Unavailable [phone] Encounter Details Date Type Department Care Team (Latest Contact Info) Description 02/13/2019 Travel Social History Tobacco Use Types Packs/Day [...] on file 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 Gender Identity Not on file Sexual Orientation Not on file documented as of this encounter Plan of Treatment Not on file documented as of this encounter Visit Diagnoses Not on filedocumented in this encounter Care Teams Associate Director Finance Relationship Specialty Start Date End Date Ravi Smith MD PCP - General 11/04/17 09/27/21 Kianna Bunch MD PhD [address] [place] [address] Surgeon Surgical Oncology 11/22/17 aSntiago Gilbert MD [address] [place] [address] Support Services Coordinator Gastroenterology 11/22/17 Dmitry Sanderson MD [address] [place] [address] Referring Physician Colon and Rectal Surgery 12/03/1805/06 Abbi Ventura MD [address] [place] [address] [address] [place] [address] Medical Oncologist/Aviation Neuropsychologist Medical Oncology 12/03/18 Montse Thompson MD [address] [place] [address] [address] [place] [address] Consulting Physician Gynecologic Oncology 12/03/18 Lela Hardy MD PhD [address] [place] [address] Radiation Oncologist Radiation Oncology 12/23/18 Kianna Bunch MD PhD [address] [place] [address] Surgeon Surgical Oncology 12/23/18 09/17/21 documented as of this encounter
--- OUTSIDE RECORDS SUMMARY | 2024-04-24 13:44 | XMS_ITS | Encounter Summary ---
Author Organization [facility] Healthcare Address [address] [place] [address] Care Team Providers Care Hotel Controller Name Role Phone Ravi Smith MD Primary Care Provider [phone] Aft, Kianna Machado MD PhD Unavailable [phone] Santiago Gilbert MD Unavailable [phone] Dmitry Sanderson MD Unavailable [phone] Abbi Ventura MD Unavailable Montse Thompson MD Unavailable [phone] Lela Hardy MD PhD Unavailable [phone] Aft, Kianna Machado MD PhD Unavailable [phone] Encounter Details Date Type Department Care Team (Late st Contact Info) Description 02/03/2019 Orders Only RAD ONC TREATMENTS Miscellaneous, Not In File Social History Tobacco Use Types Packs/Day Years [...] on file 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 Gender Identity Not on file Sexual Orientation Not on file documented as of this encounter Plan of Treatment Not on file documented as of this encounter Procedures Procedure Name Priority Date/Time Associated Diagnosis Comments RAD ONC ARIA SESSION SUMMARY 02/03/2019 1:19 PM CDT documented in this encounter Results * RAD ONC ARIA SESSION SUMMARY (02/03/2019 1:19 PM CDT) Course Name C1 L BRS HI 2018 ARIA Course Plan Date 12/26/2018 4:45 PM ARIA Elapsed Days 27 ARIA Treatment Start Date 01/07/2019 ARIA Treatment Site BST DPV ARIA Dose Given To Date (cGy) 800 ARIA Session Dosage Given (cGy) 200 ARIA Plan ID RESCAN_BST ARIA Fractions Treated 4 ARIA Prescribed Dose Per Fraction (cGy) 200 ARIA Prescribed Total Dose (cGy) 1,000 ARIA 02/03/2019 1:19 PM CDT us Not In File Miscellaneous RADIATION ONCOLOGY ORD ERABLES Final Result ARIA documented in this encounter Visit Diagnoses Not on filedocumented in this encounter Care Teams Hotel Controller Relationship Specialty Start Date End Date Ravi Smith MD PCP - General 11/04/17 09/27/21 Aft, Kianna Machado MD PhD [address] [place] [address] Surgeon Surgical Oncology 11/22/17 Santiago Gilbert MD [address] [place] [address] Contracts Officer Gastroenterology 11/22/17 Dmitry Sanderson MD [address] [place] [address] Referring Physician Colon and Rectal Surgery 12/03/1805/06 Abbi Ventura MD [address] [facility] [address] [place], [place] [id number] Medical Oncologist/Proof Machine Operator Supervisor Medical Oncology 12/03/18 Montse Thompson MD [address] [facility] [address] [place], [place] [id number] Consulting Physician Gynecologic Oncology 12/03/18 Lela Hardy MD PhD [address] [place] [address] [address] [place] [address] Radiation Oncologist Radiation Oncology 12/23/18 Aft, Kianna Machado MD PhD [address] [facility] [address] [place], [place] [id number] Surgeon Surgical Oncology 12/23/18 09/17/21 documented as of this encounter
--- OUTSIDE RECORDS SUMMARY | 2024-04-24 13:44 | XMS_ITS | Encounter Summary ---
Author Organization [facility] Address [address] [place] [address] Phone Care Team Providers Care Mechanical Service Technician Name Role Phone Ravi Smith MD Primary Care Provider [phone] Aft, Kianna Machado MD PhD Unavailable [phone] Santiago Gilbert MD Unavailable [phone] Dmitry Sanderson MD Unavailable [phone] Abbi Ventura MD Unavailable Montse Thompson MD Unavailable [phone] Lela Hardy MD PhD Unavailable Aft, Kianna Machado MD PhD Unavailable [phone] Encounter Details Date Type Department Care Team (Late st Contact Info) Description 02/04/2019 Orders Only [facility] [address] [place] [address] Abbi Ventura MD 10 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 Malignant neoplasm of descending colon documented in this encounter Orders Appointment Requests Count Last Ordered Date Fi rst Ordered Date ONCBCN STAFF VISIT APPT 1 02/04/2019 documented in this encounter Care Teams Mechanical Service Technician Relationship Specialty Start Date End Date Ravi Smith MD PCP - General 11/04/17 09/27/21 Aft, Kianna Machado MD PhD [address] [place] [address] Surgeon Surgical Oncology 11/22/17 Santiago Gilbert MD [address] [place] [address] Licensed Practical Nurse Gastroenterology 11/22/17 Dmitry Sanderson MD [address] [place] [address] Referring Physician Colon and Rectal Surgery 12/03/1805/06 Abbi Ventura MD [address] [place], [place] [id number] Medical Oncologist/Apns Medical Oncology 12/03/18 Montse Thompson MD [address] [place] [address] Consulting Physician Gynecologic Oncology 12/03/18 Lela Hardy MD PhD 10 [facility] [address] [place] [address] Radiation Oncologist Radiation Oncology 12/23/18 Aft, Kianna Machado MD PhD 10 [facility] [address] [place] [address] Surgeon Surgical Oncology 12/23/18 09/17/21 documented as of this encounter
--- OUTSIDE RECORDS SUMMARY | 2024-04-24 13:44 | XMS_ITS | Encounter Summary ---
Author Organization [facility] Address [address] [place] [address] Phone Care Team Providers Care Cementing Machine Operator Name Role Phone Hugo Smith MD Primary Care Provider [phone] Aft, Tony Machado MD PhD Unavailable [phone] Santiago Gilbert MD Unavailable [phone] Dmitry Sanderson MD Unavailable [phone] Birdie Ventura MD Unavailable Montse Carter MD Unavailable [phone] Lela Hardy MD PhD Unavailable [phone] Aft, Tony Machado MD PhD Unavailable [phone] Reason for Referral * Pulmonology (Routine) - Closed Specialty Diagnoses / Procedures Referred By Contac t Referred To Contact Pulmonology Diagnoses Other acute pulmonary embolism without acute cor pulmonale (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) Chronic obstructive pulmonary disease, unspecified COPD type (HCC) Procedures Pulmonary Function Test -[facility]- [facility]-8D; Meth Challenge Cristobal Dong MD [address] [place] [address] Phone: tel: fax: [facility] Pulmonary [address] [place] [address] Phone: tel: fax: Referral ID Status Reason Start Date Expiration Date Visits Re quested Visits Authorized [id number] Closed 02/05/2019 08/16/2020 99 99 * Consultation (Routine) - Closed Specialty Diagnoses / Procedures Referred By Contac t Referred To Contact Sleep Medicine Diagnoses Other acute pulmonary embolism without acute cor pulmonale (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) Chronic obstructive pulmonary disease, unspecified COPD type (HCC) Cristobal Dong MD [address] [place] [address] Phone: tel: fax: [facility] (All Locations) Referral ID Status Reason Start Date Expiration Date V isits Requested Visits Authorized [id number] Closed Specialty Services Required 02/05/2019 08/16/2020 1 1 Question Answer Please select the performing region: [facility] (All Locations) [[id number]] # of visits: 1 Reason for Visit * Consultation (Routine) - Closed Specialty Diagnoses / Procedures Referred By Contac t Referred To Contact Pulmonary Disease / Pulmonology Diagnoses Other acute pulmonary embolism without acute cor pulmonale (HCC) Birdie Ventura MD Phone: tel: fax: Corwin Weaver MD Phone: tel: fax: Referral ID Status Reason Start Date Expiration Date V isits Requested Visits Authorized [id number] Closed Specialty Services Required 10/02/2018 04/12/2020 1 1 Encounter Details Date Type Department Care Team (Late st Contact Info) Description 02/05/2019 11:00 AM CDT Office Visit [facility] Pulmonary [address] [place] [address] [place] [id number] Cristobal Dong MD [address] [facility] [address] [place] [address] 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); Other acute pulmonary embolism without acute cor pulmonale (CMS/HCC); Chronic obstructive pulmonary disease, unspecified COPD type (CMS/HCC); Nicotine dependence, cigarettes, in remission Social History Tobacco Use Types Packs/Day Years [...] on file Legal Sex Female 1:06 AM REGULATORY PROCESS MANAGER Gender Identity Not on file Sexual Orientation Not on file documented as of this encounter Last Filed Vital Signs Vital Sign Reading Time Taken Comments Blood Pressure 137/79 02/05/2019 11:00 AM CDT Pulse 75 02/05/2019 11:00 AM CDT Temperature 36.9 ??C (98.4 ??F) 02/05/2019 11:00 AM C DT Respiratory Rate 16 02/05/2019 11:00 AM CDT Oxygen Saturation 97% 02/05/2019 11:00 AM CDT Inhaled Oxygen Concentration - - Weight 106.1 kg (234 lb) 02/05/2019 11:00 AM CDT Height 175.3 cm (5' 9 ) 02/05/2019 11:00 AM CDT Body Mass Index 34.56 02/05/2019 11:00 AM CDT documented in this encounter Progress Notes * Cristobal Dong MD - 02/05/2019 12:00 AM CDT PATIENT NAME: ALEAH GERBER : 1955 FARHAT: 02/05/2019 HISTORY OF PRESENT ILLNESS: Ms. Gerber is a 63-year-old female who [facility] for further evaluation of shortness of breath and COPD. She is a lady who has undergone treatment for both breast and colorectal carcinoma. During her treatments, she noticed that she developed significant shortness of breath with rapid heart rate, but normal SpO2 during walking. These were primarily during her chemotherapy treatments, but also during radiation. She was referred during this time, but has noticed that since completing both her chemo and the radiation, she feels much better. She presents today and denies any shortness of breath at rest. With respect to dyspnea on exertion, she has minimal with dressing, none with showering, and mild to moderate with housework depending on her level of exertion. Of note, she is experiencing rather significant fatigue given both the chemo and radiation that she has been through over the last few months. She currently sleeps on 1 pillow and actually feels better when lying down. She denies any orthopnea and in the past had lower extremity edema related to right lower extremity DVT. With respect to sleep, she does have significant snoring. She denies any witnessed apneas. She denies any morning headaches but does have non-refreshing sleep as well as some daytime somnolence. She denies any cough or rhinitis but does have mild postnasal drainage. She denies any GERD. She denies any wheezes. She denies any fevers, chills, nausea, or vomiting. She has had drenching night sweats since her diagnosis of cancer. Her weight is variable having had a significant weight loss, but has then regained some of the weight, and her appetite is good. PAST MEDICAL HISTORY: 1. Mucinous adenocarcinoma of the left colon. a. Status post laparoscopic left hemicolectomy on 12/27/2017. b. Adjuvant FOLFOX chemotherapy started on 02/06/2018. 2. 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 a. Status post partial mastectomy and sentinel lymph biopsy on 01/14/2018. b. BRCA2 positive. c. Status post whole breast irradiation followed by a left upper inner quadrant boost in the prone position. 3. Diabetes mellitus. 4. Hypertension. 5. Suspected TIA after developing slurred speech and weakness on the right side of her body during chemotherapy. 6. Hypercholesterolemia. 7. Deep venous thrombosis of her right lower extremity noticed on a CT scan dated 05/28/2018. 8. Bilateral pulmonary emboli noted on CT scan of the chest dated 05/28/2018. 9. Suspected obstructive sleep apnea. 10. COPD, diagnosed by primary care physician. No pulmonary function tests per patient. 11. Pneumonia diagnosed and treated in September 2018. 12. Inguinal hernia repair in 1969. 13. Bladder suspension vaginally on unknown date. 14. Tubal ligation in 1991. MEDICATIONS: 1. Acetaminophen p.r.n. 2. Albuterol 2 puffs q.i.d. p.r.n., which she is using rarely. 3. Xanax p.r.n. 4. Atorvastatin. 5. Biotin. 6. Cholecalciferol. 7. Topicort cream. 8. Trulicity. 9. Breo Ellipta 100/25 one puff daily (Breo has been causing her to have hoarseness since she initiated its use, despite doing daily mouth washes). 10. Lorazepam. 11. Magnesium oxide. 12. Oxycodone. 13. Potassium chloride. 14. Rivaroxaban 20 mg p.o. at bedtime. 15. Zoloft. 16. Janumet XR. 17. Hydrochlorothiazide. ALLERGIES: 1. TETANUS CAUSES AN INJECTION SITE REACTION. 2. OXALIPLATIN DOCUMENTED DURING HER LAST CHEMO CYCLE. SOCIAL HISTORY: 1. Tobacco: One pack per day for 40 years, quit in 2014. 2. Alcohol: None. 3. Recreational drug use: None. FAMILY HISTORY: Noncontributory for pulmonary disease. OCCUPATIONAL HISTORY: Ms. Gerber held a number of jobs throughout the years. 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 She was exposed to exhaust fumes from small engines, such as lawn mowing engines, including from [employer] shop which was poorly ventilated. She denies living in a house with a basement and has not lived in a house with water damage. HOBBIES: Ms. Gerber has a number of hobbies which exposed her to dust, chemicals, or fumes. 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 She did spend 1 year in which she was exposed regularly to hot tubs, but has not done so for many years. PETS: She does not currently have any pets. She has never owned birds. She does currently have a feather pillow. VACCINATION HISTORY: She is not up-to-date on her flu shot for this year. She is unsure of whether or not she has ever had pneumonia shots. REVIEW OF SYSTEMS: The review of systems is negative unless documented above. I have reviewed the [facility] Health Questionnaire and entered it to be scanned. PHYSICAL EXAMINATION: Vital Signs: Blood pressure is 137/79, heart rate 75 and regular, respiratory rate 16, no distress on room air. Temperature is 98.4. SpO2 is 97% on room air. Weight is 234 pounds. BMI is 34.9. Head and Neck: Pupils equal and reactive to light. Extraocular motion intact. There is no rhinitis,sinusitis, pharyngitis, or conjunctivitis. Trachea is central. There is no jugular venous distention. No significant cervical or supraclavicular lymphadenopathy. Respiratory: Normal to percussion bilaterally. Good breath sounds bilaterally, without wheezes or crackles. Cardiovascular: No RV heave or PA tap. Regular rate and rhythm. No murmurs, rubs, or gallops. Abdominal: Soft, nontender, nondistended, with normoactive bowel sounds. Extremities: No clubbing, cyanosis, or edema. Good peripheral pulses and perfusion. There is some tenderness of the anterior aspect of her shins, which may be related to neuropathy. LABORATORY DATA: 1. Pulmonary function tests: FEV1 is 2.33 L (81% predicted) and FVC is 3.05 L (82% predicted), for an FEV1/FVC ratio of 76%. Total lung capacity is 5.01 L (87% predicted) and RV is 1.96 L (87% predicted), with an ERV of 0.75% (62% predicted). On the basis of these pulmonary function tests, there isno significant ventilatory defect. There is no bronchodilator response, although she did take her medication at 9 a.m. this morning. DLCO is mildly decreased and does not correct for hemoglobin. 2. Arterial blood gas: On room air at rest, arterial blood gas is 7.43/37.0/84.0. Hemoglobin is 11.5 with an oxyhemoglobin of 95.5 and a carboxyhemoglobin of 1.2, in keeping with current nonsmoking status. Of note, mild anemia is noted. 3. Six-minute walk: On room air at rest, SpO2 is normal, and with effort sufficient to increase heart rate from 76 to 126, remains stable. On this basis, there is no requirement for supplemental oxygen either at rest or with exertion. There is no significant change in post-exercise FEV1. 4. Chest x-ray from today was reviewed. Cardiomediastinal silhouette is within normal limits. Thereis no consolidation, effusion, or pneumothorax. Old granulomatous disease is noted. 5. PE protocol chest CT from 05/28/2018, was reviewed. Most notable are filling defects in the right main pulmonary artery, left lower lobe pulmonary artery, and segmental branches of the left upper lobe pulmonary artery all consistent with pulmonary emboli. Lung parenchyma is clear without consolidation, effusion, or pneumothorax. There are no suspicious pulmonary nodules. Heart is of normal size without evidence of right heart strain including right ventricular dilation or a contrast reflux into the inferior vena cava. Diffuse hepatic steatosis is noted. Of note, a right lower extremity deep venous thrombosis is also seen on the scan. ASSESSMENT: Ms. Gerber is a very pleasant 63-year-old female who is [facility] for further evaluation of chronic obstructive pulmonary disease and generalized shortness of breath. She presents today with significant fatigue as well as normal pulmonary function tests, 6-minute walk, and chest x-ray. She also has a history of an extensive pulmonary embolus and deep venous thrombosis, most likely related to her underlying malignancies. PLAN: 1. COPD. At this point in time, there is no evidence of COPD either on the CT scan from May 2018 or on a pulmonary function testing. It is possible that she might have mild asthma and, as such, is adequately treated on her current dose of Breo. It is however causing her some hoarseness despite rinsing out her mouth. I would like to keep her on an inhaled corticosteroid. As such, I will switchher to Wixela. She was shown how to use this and I encouraged her to continue rinsing out her mouth. We will also set her up for a methacholine challenge. If this is negative, I think we could safelyswitch her to an inhaled LAMA. 2. Pulmonary emboli. Ms. Gerber had extensive pulmonary emboli as well as a lower extremity thrombus. This clot burden is most likely related to her cancer. As such, I would recommend continued anticoagulation until such time as she was thought to be cured from her cancer. 3. Health maintenance. Ms. Gerber was given a flu shot today, and a Prevnar vaccine. I told her shecould get a pneumococcal vaccine in approximately 8 weeks. 4. Obstructive sleep apnea. Ms. Gerber has a strong phenotype for obstructive sleep apnea, both by history and physical exam. I will refer to the [facility] Center for further evaluation and treatment as indicated. 5. Lung cancer screening. Given her history, Ms. Gerber qualifies for lung cancer screening. We will set her up for a screening CT in May 2018. PEPCT from May 2018 was negative for concerningnodules. We will contact her with the results of the study when available. 6. Return office visit will be in 6 months, or sooner if the need arises. Ms. Gerber would like to follow up with her primary care physician. I told her that once we had seen her in follow-up and that if her physician was comfortable with getting annual screening CTs, we would be happy to dischargeher to their care. ELECTRONICALLY SIGNED - 02/05/2019 04:47 PM Cristobal Dong M.D. finisher fiberglass boat parts /mt cc: BIRDIE VENTURA M.D. [address] [place] [address] [phone] MONTSE CARTER MD [facility] Gynecological Oncology [address] [place] [address] HUGO SMITH MD [address] [place] [address] [place] [address] / TONY GAY MD [facility] [address] [place] [address] documented in this encounter Plan of Treatment Scheduled Referrals Name Type Priority Associated Diagnoses Orde r Schedule Ambulatory referral to Sleep Medicine Outpatient Referral Routine Other acute pulmonary embolism without acute cor pulmonale (CMS/HCC) Malignant neoplasm of descending colon (CMS/HCC) Chronic obstructive pulmonary disease, unspecified COPD type (CMS/HCC) Expected: 02/19/2019 (Approximate), Expires: 02/06/2020 documented as of this encounter Results * Pulmonary Function Test - (03/12/2019 10:01 AM REGULATORY PROCESS MANAGER) FVC PRED 3.71 0.05 - 9.99 Liters [facility] FVC PRE 2.67 0 - 12 Liters [facility] FVC %PRE PRED 72 0 - 300 % [facility] FVC POST 2.61 0 - 12 Liters [facility] FVC %POST PRED 70 0 - 300 % [facility] FVC %CHNG -2 0 - 300 % [facility] FEV1 PRED 2.89 0.05 - 9.99 Liters [facility] FEV1 PRE 2.09 0 - 12 Liters [facility] FEV1 %PRE PRED 72 0 - 300 % [facility] FEV1 POST 1.99 0 - 12 Liters [facility] FEV1 %POST PRED 69 0 - 300 % [facility] FEV1 %CHNG -5 0 - 300 % [facility] FEV1/FVC PRED 79 1 - 99 % [facility] FEV1/FVC PRE 78 0 - 12 % [facility] FEV1/FVC POST 76 0 - 12 % [facility] BNR09-08% PRED 2.47 0 - 12 L/sec [facility] TNK57-62% PRE 1.89 0 - 12 L/sec [facility] NOP00-62% %PRE PRED 76 0 - 300 % [facility] KLJ18-78% POST 1.40 0 - 12 L/sec [facility] JJB03-97% %POST PRED 56 0 - 300 % [facility] WCR27-49% %CHNG -26 0 - 300 % [facility] FEF75% PRED 0.73 0 - 300 L/sec [facility] FEF75% PRE 0.71 0 - 12 L/sec [facility] FEF75% %PRE PRED 98 % [facility] FEF75% POST 0.42 0 - 12 L/sec [facility] FEF75% %POST PRED 58 0 - 300 % [facility] FEF75% %CHNG -40 0 - 12 % [facility] PEF PRED 6.32 0 - 18 L/sec [facility] PEF PRE 6.87 0 - 18 L/sec [facility] PEF %PRE PRED 109 0 - 300 % [facility] PEF POST 7.15 0 - 18 L/sec [facility] PEF %POST PRED 113 0 - 300 % [facility] PEF %CHNG 4 0 - 300 % [facility] KIJ893% %CHNG 7 % [facility] PIF PRE 5.35 0 - 18 L/sec [facility] PIF POST 5.28 0 - 18 L/sec [facility] PIF %CHNG -1 0 - 300 % [facility] FEV6 PRE 2.63 0 - 12 Liters [facility] FEV6 POST 2.56 0 - 12 Liters [facility] FEV6 % CHG -3 0 - 300 % [facility] FEV1/FEV6 PRE 79 0 - 12 % [facility] FEV1/FEV6 POST 78 0 - 12 % [facility] VC PRED 3.54 0.05 - 9.99 Liters [facility] TLC PRED 5.79 0.05 - 11.99 Liters [facility] RV PRED 2.25 0.05 - 9.99 Liters [facility] RV/TLC PRED 40 0 - 300 % [facility] FRC N2 PRED 2.81 0.05 - 9.99 Liters [facility] FRC PL PRED 3.31 0.05 - 9.99 Liters [facility] ERV PRED 1.22 0.05 - 9.99 Liters [facility] DLCO PRED 27.6 0.05 - 99.99 mL/mmHg/min [facility] DL ADJ PRED 27.6 1 - 2 mL/mmHg/min [facility] DLCO/VA PRED 5.05 mL/mHg/min/ L [facility] DL/VA ADJ PRED 3.83 mL/mHg/min/ L [facility] RAW PRED 1.14 cmH2O/L/sec [facility] GAW PRED 0.794 L/sec/cmH2O [facility] SRAW PRED 3.76 cmH2O/L/s/L [facility] SGAW PRED 0.261 L/s/cmH2O/L [facility] Anatomical Region Laterality Modality PFT 03/12/2019 9:02 AM REGULATORY PROCESS MANAGER Narrative 03/17/2019 11:39 AM REGULATORY PROCESS MANAGER SEE PDF Cristobal Dong MD PFT ORDERABLES Final Result documented in this encounter Visit Diagnoses Diagnosis 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)- Primary Malignant neoplasm of descending colon Other acute pulmonary embolism without acute cor pulmonale (HCC) Chronic obstructive pulmonary disease, unspecified COPD type (HCC) Nicotine dependence, cigarettes, in remission Other acute pulmonary embolism without acute cor pulmonale (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) Malignant neoplasm of descending colon Chronic obstructive pulmonary disease, unspecified COPD type (HCC) documented in this encounter Orders Immunization/Injection Count Last Ordered Date First Ordered Date FLU VACCINE MDCK QUAD PF 4Y+ IM - FLUCELVAX 1 02/05/2019 PNEUMOCOCCAL CONJUGATE VACCI NE 13-VALENT IM 1 02/05/2019 Outpatient Referral Count Last Ordered Date Fir st Ordered Date AMB REFERRAL TO PULMONOLOGY 1 02/05/2019 documented in this encounter Care Teams Cementing Machine Operator Relationship Specialty Start Date End Date Hugo Smith MD PCP - General 11/04/17 09/27/21 Aft, Tony Machado MD PhD [address] [place] [address] Surgeon Surgical Oncology 11/22/17 Santiago Gilbert MD [address] [place] [address] Jig Borer Gastroenterology 11/22/17 Dmitry Sanderson MD [address] [place] [address] Referring Physician Colon and Rectal Surgery 12/03/1805/06 Birdie Ventura MD [address] [facility] [address] [place] [address] Medical Oncologist/Animal Eviscerator Medical Oncology 12/03/18 Montse Carter MD [address] [facility] [address] [place] [address] Consulting Physician Gynecologic Oncology 12/03/18 Lela Hardy MD PhD [address] [facility] [address] [place], [place] [id number] Radiation Oncologist Radiation Oncology 12/23/18 Aft, Tony Machado MD PhD [address] [facility] [address] [place], [place] [id number] Surgeon Surgical Oncology 12/23/18 09/17/21 documented as of this encounter
--- OUTSIDE RECORDS SUMMARY | 2024-04-24 13:44 | XMS_ITS | Encounter Summary ---
Author Organization [facility] Address [address] [place] [address] Phone Care Team Providers Care Warp Splitter Name Role Phone Ravi Smith MD Primary Care Provider [phone] Aft, Kianna Machado MD PhD Unavailable [phone] Santiago Gilbert MD Unavailable [phone] Dmirty Sanderson MD Unavailable [phone] Abbi Ventura MD Unavailable Montse Thompson MD Unavailable [phone] Lela Hardy MD PhD Unavailable [phone] Aft, Kianna Machado MD PhD Unavailable [phone] Reason for Referral * Pulmonology (Routine) - Closed Specialty Diagnoses / Procedures Referred By Contac t Referred To Contact Diagnoses Chronic obstructive pulmonary disease, unspecified COPD type (HCC) Procedures Pulmonary Function Test -[facility] Adult PFT Lab- CAM-8D; Spirometry with Bronchodilator, Spirometry, Oxygen Assessment Titration, DLCO, Lung Volumes, ABG; Pleth with Airway Resistance; Room Air ABG; Spirometry Cristobal Dong MD Phone: tel: fax: [facility] (All Locations) Referral ID Status Reason Start Date Expiration Date Visits Re quested Visits Authorized [id number] Closed 10/07/2018 02/24/2019 99 99 Reason for Visit * Pulmonology (Routine) - Closed Specialty Diagnoses / Procedures Referred By Contac t Referred To Contact Diagnoses Chronic obstructive pulmonary disease, unspecified COPD type ([facility]) Procedures Pulmonary Function Test -[facility] Adult PFT Lab- CAM-8D; Spirometry with Bronchodilator, Spirometry, Oxygen Assessment Titration, DLCO, Lung Volumes, ABG; Pleth with Airway Resistance; Room Air ABG; Spirometry Cristobal Dong MD Phone: tel: fax: [facility] (All Locations) Referral ID Status Reason Start Date Expiration Date Visits Re quested Visits Authorized [id number] Closed 10/07/2018 02/24/2019 99 99 Encounter Details Date Type Department Care Team (Latest Contact Info) Description 02/05/2019 10:00 AM CDT - 02/05/2019 11:59 PM CDT Hospital Encounter [facility] Pulmonary [address] [facility] [address] [facility] [address] [place] [address] Chronic obstructive pulmonary disease, unspecified COPD type [...] on file 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 Gender Identity Not on file Sexual Orientation [...] 6 (six) hours 45 tablet 1 02/14/2019 11/11/201 9 acetaminophen (TYLENOL) 500 mg tablet Take [...] Diagnosis Comments PULMONARY FUNCTION TEST (PFT) Routine 02/05/2019 10:58 AM CDT Chronic obstructive pulmonary disease, unspecified COPD type (CMS/HCC) documented in this encounter Results * Pulmonary Function Test - (02/05/2019 10:58 AM CDT) FVC PRED 3.71 0.05 - 9.99 Liters [facility] FVC PRE 3.05 0 - 12 Liters [facility] FVC %PRE PRED 82 0 - 300 % [facility] FVC POST 3.00 0 - 12 Liters [facility] FVC %POST PRED 81 0 - 300 % [facility] FVC %CHNG -2 0 - 300 % [facility] FEV1 PRED 2.89 0.05 - 9.99 Liters [facility] FEV1 PRE 2.33 0 - 12 Liters [facility] FEV1 %PRE PRED 81 0 - 300 % [facility] FEV1 POST 2.29 0 - 12 Liters [facility] FEV1 %POST PRED 79 0 - 300 % [facility] FEV1 %CHNG -1 0 - 300 % [facility] FEV1/FVC PRED 79 1 - 99 % [facility] FEV1/FVC PRE 76 0 - 12 % [facility] FEV1/FVC POST 77 0 - 12 % [facility] IUZ92-16% PRED 2.47 0 - 12 L/sec [facility] OEL84-22% PRE 1.95 0 - 12 L/sec [facility] LFA34-54% %PRE PRED 79 0 - 300 % [facility] BIE37-38% POST 1.93 0 - 12 L/sec [facility] CKV19-32% %POST PRED 78 0 - 300 % [facility] XGS00-34% %CHNG -1 0 - 300 % [facility] FEF75% PRED 0.73 0 - 300 L/sec [facility] FEF75% PRE 0.51 0 - 12 L/sec [facility] FEF75% %PRE PRED 70 % [facility] FEF75% POST 0.59 0 - 12 L/sec [facility] FEF75% %POST PRED 82 0 - 300 % [facility] FEF75% %CHNG 16 0 - 12 % [facility] PEF PRED 6.32 0 - 18 L/sec [facility] PEF PRE 6.85 0 - 18 L/sec [facility] PEF %PRE PRED 108 0 - 300 % [facility] PEF POST 7.40 0 - 18 L/sec [facility] PEF %POST PRED 117 0 - 300 % [facility] PEF %CHNG 8 0 - 300 % [facility] ZYA435% %CHNG -7 % [facility] PIF PRE 5.48 0 - 18 L/sec [facility] PIF POST 4.49 0 - 18 L/sec [facility] PIF %CHNG -18 0 - 300 % [facility] FEV6 PRE 2.94 0 - 12 Liters [facility] FEV6 POST 2.91 0 - 12 Liters [facility] FEV6 % CHG -1 0 - 300 % [facility] FEV1/FEV6 PRE 79 0 - 12 % [facility] FEV1/FEV6 POST 79 0 - 12 % [facility] VC PRED 3.54 0.05 - 9.99 Liters [facility] VC PRE 3.05 0.05 - 9.99 Liters [facility] VC %PRE PRED 86 0 - 300 % [facility] TLC PRED 5.79 0.05 - 11.99 Liters [facility] TLC PRE 5.01 0.05 - 11.99 Liters [facility] TLC %PRE PRED 87 0 - 300 % [facility] RV PRED 2.25 0.05 - 9.99 Liters [facility] RV PRE 1.96 0.05 - 9.99 Liters [facility] RV %PRE PRED 87 0 - 300 % [facility] RV/TLC PRED 40 0 - 300 % [facility] RV/TLC PRE 39 0 - 300 % [facility] FRC N2 PRED 2.81 0.05 - 9.99 Liters [facility] FRC PL PRED 3.31 0.05 - 9.99 Liters [facility] FRC PL PRE 2.72 0.05 - 9.99 Liters [facility] FRC PL %PRE PRED 82 0 - 300 % [facility] ERV PRED 1.22 0.05 - 9.99 Liters [facility] ERV PRE 0.75 0.05 - 9.99 Liters [facility] ERV %PRE PRED 62 0 - 300 % [facility] IC PRE 2.29 0.05 - 9.99 Liters [facility] DLCO PRED 27.6 0.05 - 99.99 mL/mmHg/min [facility] DLCO PRE 14.2 mL/mmHg/min [facility] DLCO %PRE PRED 51 0 - 300 % [facility] DL ADJ PRED 27.6 1 - 2 mL/mmHg/min [facility] DL ADJ PRE 15.3 1 - 2 mL/mmHg/min [facility] DL ADJ %PRE PRED 55 0 - 300 % [facility] DLCO/VA PRED 5.05 mL/mHg/min/ L [facility] DLCO/VA PRE 3.60 mL/mHg/min/ L [facility] DLCO/VA %PRE PRED 71 % [facility] DL/VA ADJ PRED 3.75 mL/mHg/min/ L [facility] DL/VA ADJ %PRE PRED 104 % [facility] VA PRE 3.94 Liters [facility] RAW PRED 1.14 cmH2O/L/sec [facility] RAW PRE 2.26 cmH2O/L/sec [facility] RAW %PRE PRED 199 % [facility] GAW PRED 0.794 L/sec/cmH2O [facility] GAW PRE 0.442 L/sec/cmH2O [facility] GAW %PRE PRED 56 % [facility] SRAW PRED 3.76 cmH2O/L/s/L [facility] SRAW PRE 6.76 cmH2O/L/s/L [facility] SRAW %PRE PRED 180 % [facility] SGAW PRED 0.262 L/s/cmH2O/L [facility] SGAW PRE 0.148 L/s/cmH2O/L [facility] SGAW %PRE PRED 57 % [facility] pH POC 7.43 [facility] pCO2 POC 37.0 mmHg [facility] PO2 POC 84.0 mmHg [facility] HCO3(c) POC 24.6 meq/L [facility] BE(B) POC 0.4 [facility] O2Hb POC 95.5 % [facility] COHb POC 1.2 % [facility] A-aDO2 POC 19.0 mmHg [facility] Anatomical Region Laterality Modality PFT 02/05/2019 10:1 3 AM CDT Narrative 02/06/2019 1:09 PM CDT [facility] Division of Pulmonary & Critical Care Medicine [address] [place] [address]; [place] [address]; [place], [place] ??[address]; [phone] Pulmonary Function Laboratory Pulmonary Stress Test Simple/Oxygen Assessment Patient: Aleah Gerber Date: 02/05/2019 Physician: Iker Ht: 69 in ?? Wt: 234 lbs Room: Op Aqua Ammonia Operator: Mary : 1955 Diagnosis: COPD Time(min) Distance (ft)/ Peters O2 L/M SpO2 HR Manny* BP FEV1/ ?% Pred Rest: ?RA 100 76 0 127/74 2.33/81 ? Walk/Bike: ? 1 ??RA 99 103 0 ?? 2 ??RA 97 117 2 ?? 3 ??RA 99 124 3 ?? 4 ??RA 98 126 5 ?? 5 ??RA 97 126 5 ?? 6 min 0 sec ??1350 RA 99 124 6 ?? Recovery: ? 1 ??RA 100 108 3 134/74 2.28/78 2 ??RA 100 80 ? *Manny rate of perceived exertion (1-10 dyspnea scale) ?? Austin, CHEST 2003; 123:1408 Walk Test Summary: Six Minute Walk Distance: 1350 ft Six minute Walk Work [distance (m) x body wt (kg)]: 43,594 kg.m (normal >60,000 kg.m) Oxygen required to maintain SpO2 greater than 90% during six minutes of walking: ??L/M Comments: Zero stops Interpretation: Breathing room air, SpO2 is normal at rest and during exercise sufficient to increase pulse from ??76 to 126 b/min, SpO2 is stable. ??On this basis, SpO2 is adequate at rest breathing room air and while walking breathing room air. ??This level of exercise is associated with no significant change of FEV1. Juan Luis Dior MD By signing this report, the attending [...] (HCC) documented in this encounter Care Teams Warp Splitter Relationship Specialty Start Date End Date Ravi Smith MD PCP - General 11/04/17 09/27/21 AftKianna MD PhD [address] [place] [address] Surgeon Surgical Oncology 11/22/17 Santiaog Gilbert MD [address] [place] [address] Grinder Outside Diameter Gastroenterology 11/22/17 Dmitry Sanderson MD [address] [place] [address] Referring Physician Colon and Rectal Surgery 12/03/1805/06 Abbi Ventura MD [facility] [address] [place] [address] Medical Oncologist/Shovel Engineer Medical Oncology 12/03/18 Montse Thompson MD [address] [place] [address] Consulting Physician Gynecologic Oncology 12/03/18 Lela Hardy MD PhD [address] [place] [address] Radiation Oncologist Radiation Oncology 12/23/18 Kianna Bunch MD PhD [address] [place] [address] Surgeon Surgical Oncology 12/23/18 09/17/21 documented as of this encounter
--- OUTSIDE RECORDS SUMMARY | 2024-04-24 13:44 | XMS_ITS | Encounter Summary ---
Author Organization [facility] Address [address] [place] [address] Phone Care Team Providers Care Supervisor Boarding Name Role Phone Ravi Smith MD Primary Care Provider [phone] Aft, Kianna Machado MD PhD Unavailable [phone] Santiago Gilbert MD Unavailable [phone] Dmitry Sanderson MD Unavailable [phone] Abbi Ventura MD Unavailable Montse Thompson MD Unavailable [phone] Lela Hardy MD PhD Unavailable [phone] Aft, Kianna Machado MD PhD Unavailable [phone] Encounter Details Date Type Department Care Team (Late st Contact Info) Description 02/05/2019 Orders Only [facility] Pulmonary [address] [facility] [address] [place] [address] [place] [address] Cristobal Dong MD [address] [place] [address] Social History Tobacco Use Types [...] on file 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 Do not swallow. 60 each 5 02/05/2019 02/05/2019 documented in this encounter Plan of Treatment Not on file documented as of this encounter Visit Diagnoses Not on filedocumented in this encounter Discontinued Medications Medication Sig Discontinue Reason Start Date End Da te fluticasone furoate-vilanterol (BREO ELLIPTA) 100-25 mcg/dose diskus inhalerIndications:Bron hospasm Prevention with COPD Inhale 1 puff every morning Rinse mouth with water after use. Do not swallow. Alternate therapy 02/05/2019 documented as of this encounter Care Teams Supervisor Boarding Relationship Specialty Start Date End Date Ravi Smith MD PCP - General 11/04/17 09/27/21 Aft, Kianna Machado MD PhD [address] [place] [address] Surgeon Surgical Oncology 11/22/17 Santiago Gilbert MD [address] [place] [address] Opener Tender Gastroenterology 11/22/17 Dmitry Sanderson MD [address] [place] [address] Referring Physician Colon and Rectal Surgery 12/03/1805/06 Abbi Ventura MD [address] [place], [place] [id number] Medical Oncologist/Belt Loop Machine Operator Medical Oncology 12/03/18 Montse Thompson MD [address] [place] [address] Consulting Physician Gynecologic Oncology 12/03/18 Lela Hardy MD PhD [address] [place] [address] Radiation Oncologist Radiation Oncology 12/23/18 Aft, Kianna Machado MD PhD [address] [facility] [address] [place], [place] [address] Surgeon Surgical Oncology 12/23/18 09/17/21 documented as of this encounter
--- OUTSIDE RECORDS SUMMARY | 2024-04-24 13:44 | XMS_ITS | Encounter Summary ---
Author Organization [facility] Healthcare Address [address] [place] [address] Care Team Providers Care Functional Director Name Role Phone Ravi Smith MD Primary Care Provider [phone] Aft, Kianna Machado MD PhD Unavailable Santiago Gilbert MD Unavailable Dmitry Sanderson MD Unavailable [phone] Abbi Ventura MD Unavailable Montse Thompson MD Unavailable Lela Hardy MD PhD Unavailable Aft, Kianna Machado MD PhD Unavailable [phone] Encounter Details Date Type Department Care Team (Late st Contact Info) Description 02/04/2019 2:30 PM CDT Treatment [facility] Radiation Oncology at [facility] [address] [place] [address] Lela Hardy MD PhD [address] [facility] [address] [place] [address] Social History Tobacco Use Types Packs/Day Years [...] on file 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 Gender Identity Not on file Sexual Orientation Not on file documented as of this encounter Plan of Treatment Not on file documented as of this encounter Visit Diagnoses Not on filedocumented in this encounter Care Teams Functional Director Relationship Specialty Start Date End Date Ravi Smith MD PCP - General 11/04/17 09/27/21 Aft, Kianna Machado MD PhD [address] [place] [address] Surgeon Surgical Oncology 11/22/17 Santiago Gilbert MD [address] [place] [address] Water Manager Gastroenterology 11/22/17 Dmitry Sanderson MD [address] [place] [address] Referring Physician Colon and Rectal Surgery 12/03/1805/06 Abbi Ventura MD [facility] [place] [address] Medical Oncologist/Artist Model Medical Oncology 12/03/18 Montse Thompson MD [facility] [address] [place] [address] Consulting Physician Gynecologic Oncology 12/03/18 Lela Hardy MD PhD [address] [place], [place] [id number] Radiation Oncologist Radiation Oncology 12/23/18 Aft, Kianna Machado MD PhD [address] [facility] [address] [place], [place] [address] Surgeon Surgical Oncology 12/23/18 09/17/21 documented as of this encounter
--- OUTSIDE RECORDS SUMMARY | 2024-04-24 13:44 | XMS_ITS | Encounter Summary ---
Author Organization [facility] Healthcare Address [address] [place] [address] Care Team Providers Care Certified Pharmacist Assistant Name Role Phone Ravi Smith MD Primary Care Provider [phone] Aft, Kianna Machado MD PhD Unavailable [phone] Santiago Gilbert MD Unavailable [phone] Dmitry Sanderson MD Unavailable [phone] Abbi Ventura MD Unavailable Montse Thompson MD Unavailable [phone] Lela Hardy MD PhD Unavailable [phone] Aft, Kianna Machado MD PhD Unavailable [phone] Encounter Details Date Type Department Care Team (Late st Contact Info) Description 02/04/2019 Documentation [facility] Radiation Oncology at [facility] [address] [place] [address] Zulema Dior, ELECTRONIC NEWS GATHERING EDITOR [address] [facility] [address] [place] [address] Social History Tobacco Use Types Packs/Day Years [...] on file 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 Gender Identity Not on file Sexual Orientation Not on file documented as of this encounter Progress Notes * Zulema Dior, ELECTRONIC NEWS GATHERING EDITOR - 02/04/2019 11:59 PM CDT Radiation Oncologist: Lela Hardy MD PhD Primary Care Physician: Ravi Smith MD Medical Oncologist: Abbi Ventura MD Surgeon: Kianna Bunch MD PhD Referring Physician: Patient Care Team: Dmitry Sanderson MD as Referring Physician (Colon and Rectal Surgery) Kianna Bunch MD PhD as Referring Physician (Surgical Oncology) Date of Service: 02/04/2019 RADIATION ONCOLOGY COMPLETION OF THERAPY (COT) Identifying Data: Cancer Staging Malignant neoplasm of upper-inner quadrant of left breast in female, 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) Staging form: Breast, AJCC 8th Edition - Pathologic: Stage IIA (pT2, pN0(sn), cM0, G3, ER-, WI-, HER2-) - Signed by Roger Dorsey MD on 12/23/2018 - Clinical: Stage IIB (cT2, cN0, cM0, G3, ER-, WI-, HER2-) - Signed by Lela Hardy MD [...] of 10 Gy in the prone position. Treatment Delivered: She was treated with external beam radiation therapy, with a total dose of 4256 cGy delivered in 16fractions of 266 cGy to the left breast using tangents in the prone position, with photons and [id number] technique. Setup verification was performed with daily CBCT and weekly port films. This was followed by a sequential boost to the tumor bed, with a dose of 1000 cGy delivered in 5 fractions of 200 cGy using 3D-AEROLOGIST. Treatment was initiated on 01/07/19 and was completed on 02/04/19. Concurrent Therapy: N/A Pain Plan: RAD ONC PAIN PLAN: The patient is not currently having any pain that requires changes in pain management. Tolerance to Treatment: Ms. Gerber tolerated the treatment well. She is experienced grade 1 radiation dermatitis to the breast, chest wall and axilla. She also experienced grade 1 fatigue. She is following skin care recommendations. Disposition: ?? Follow up in clinic in six weeks. ?? Post treatment skin care instructions given. ?? Patient was instructed to call with any concerns prior to scheduled follow up visit. Lela Hardy MD PhD supervised the patient???s radiation treatment as summarized. Cosigned by Lela Hardy MD PhD at 07/12/2019 10:57 AM CDT documented in this encounter Plan of Treatment Not on file documented as of this encounter Visit Diagnoses Not on filedocumented in this encounter Care Teams Certified Pharmacist Assistant Relationship Specialty Start Date End Date Ravi Smith MD PCP - General 11/04/17 09/27/21 Aft, Kianna Machado MD PhD [address] [place] [address] Surgeon Surgical Oncology 11/22/17 Santiago Gilbert MD [address] [place] [address] Speech Therapist Early Intervention Gastroenterology 11/22/17 Dmitry Sanderson MD [address] [place] [address] Referring Physician Colon and Rectal Surgery 12/03/1805/06 Abbi Ventura MD [address] [place] [address] [address] [place] [address] Medical Oncologist/Major Account Manager Medical Oncology 12/03/18 Montse Thompson MD [address] [place] [address] [address] [place] [address] Consulting Physician Gynecologic Oncology 12/03/18 Lela Hardy MD PhD [address] [place] [address] [address] [place] [address] Radiation Oncologist Radiation Oncology 12/23/18 Aft, Kianna Machado MD PhD [address] [place] [address] [address] [place] [address] Surgeon Surgical Oncology 12/23/18 09/17/21 documented as of this encounter
--- OUTSIDE RECORDS SUMMARY | 2024-04-24 13:44 | XMS_ITS | Encounter Summary ---
Author Organization [facility] Address [address] [place] [address] Phone Care Team Providers Care Twine Reeling Machine Operator Name Role Phone Ravi Smith MD Primary Care Provider [phone] Aft, Kianna Machado MD PhD Unavailable [phone] Santiago Gilbert MD Unavailable [phone] Dmitry Sanderson MD Unavailable [phone] Abbi Ventura MD Unavailable Montse Thompson MD Unavailable [phone] Lela Hardy MD PhD Unavailable [phone] Aft, Kianna Machado MD PhD Unavailable [phone] Reason for Visit * Reason Comments Port Flush Encounter Details Date Type Department Care Team (Latest Contact Info) Description 02/04/2019 3:00 PM CDT Clinical Support [facility] Oncology [address] [place] [address] Malignant neoplasm of descending colon (CMS/HCC) Social [...] on file 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 Gender Identity Not on file Sexual Orientation Not on file documented as of this encounter Last Filed Vital Signs Vital Sign Reading Time Taken Comments Blood Pressure 144/74 02/04/2019 3:38 PM CDT Pulse 62 02/04/2019 3:38 PM CDT Temperature 36.8 ??C (98.2 ??F) 02/04/2019 3:38 PM CD T Respiratory Rate 18 02/04/2019 3:38 PM CDT Oxygen Saturation 97% 02/04/2019 3:38 PM CDT Inhaled Oxygen Concentration - - Weight 106.8 kg (235 lb 7.2 oz) 02/04/2019 3:38 PM CDT Height - - Body Mass Index 34.77 12/25/2018 9:12 AM CDT documented in this encounter Nursing Notes * Olivia Perez RN - 02/04/2019 3:00 PM CDT Pt tolerated treatment well. 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) Malignant neoplasm of descending colon documented in this encounter Orders Appointment Requests Count Last Ordered Date Fi rst Ordered Date ONCBCN STAFF VISIT APPT 1 02/04/2019 documented in this encounter Care Teams Twine Reeling Machine Operator Relationship Specialty Start Date End Date Ravi Smith MD PCP - General 11/04/17 09/27/21 Aft, Kianna Machado MD PhD [address] [place] [address] Surgeon Surgical Oncology 11/22/17 Santiago Gilbert MD [address] [place] [address] Bus Dispatcher [facility]astro[facility] 11/22/17 Dmitry Sanderson MD [address] [place] [address] Referring Physician Colon and Rectal Surgery 12/03/1805/06 Abbi Ventura MD [address] [facility] [address] [place] [address] Medical Oncologist/Tableau Report Developer Medical Oncology 12/03/18 Montse Thompson MD [address] [facility] [address] [place] [address] Consulting Physician Gynecologic Oncology 12/03/18 Lela Hardy MD PhD [address] [facility] [address] [place] [address] Radiation Oncologist Radiation Oncology 12/23/18 Aft, Kianna Machado MD PhD [address] [facility] [address] [place] [address] Surgeon Surgical Oncology 12/23/18 09/17/21 documented as of this encounter
--- OUTSIDE RECORDS SUMMARY | 2024-04-24 13:44 | XMS_ITS | Encounter Summary ---
Author Organization [facility] Healthcare Address [address] [place] [address] Care Team Providers Care Auto Adjudication Specialist Name Role Phone Ravi Smith MD Primary Care Provider [phone] Aft, Kianna Machado MD PhD Unavailable [phone] Santiago Gilbert MD Unavailable [phone] Dmitry Sanderson MD Unavailable [phone] Abbi Ventura MD Unavailable Montse Thompson MD Unavailable [phone] Lela Hardy MD PhD Unavailable [phone] Aft, Kianna Machado MD PhD Unavailable [phone] Encounter Details Date Type Department Care Team (Late st Contact Info) Description 02/04/2019 Orders Only RAD ONC TREATMENTS Miscellaneous, Not [...] on file 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 Gender Identity Not on file Sexual Orientation Not on file documented as of this encounter Plan of Treatment Not on file documented as of this encounter Procedures Procedure Name Priority Date/Time Associated Diagnosis Comments RAD ONC ARIA SESSION SUMMARY 02/04/2019 2:35 PM CDT documented in this encounter Results * RAD ONC ARIA SESSION SUMMARY (02/04/2019 2:35 PM CDT) Course Name C1 L BRS ME 2018 ARIA Course Plan Date 12/26/2018 4:45 PM ARIA Elapsed Days 28 ARIA Treatment Start Date 01/07/2019 ARIA Treatment Site BST DPV ARIA Dose Given To Date (cGy) 1,000 ARIA Session Dosage Given (cGy) 200 ARIA Plan ID RESCAN_BST ARIA Fractions Treated 5 ARIA Prescribed Dose Per Fraction (cGy) 200 ARIA Prescribed Total Dose (cGy) 1,000 ARIA 02/04/2019 2:35 PM CDT us Not In File Miscellaneous RADIATION ONCOLOGY ORD ERABLES Final Result ARIA documented in this encounter Visit Diagnoses Not on filedocumented in this encounter Care Teams Auto Adjudication Specialist Relationship Specialty Start Date End Date Ravi Smith MD PCP - General 11/04/17 09/27/21 Aft, Kianna Machado MD PhD [address] [place] [address] Surgeon Surgical Oncology 11/22/17 Santiago Gilbert MD [address] [place] [address] Data Officer Gastroenterology 11/22/17 Dmitry Sanderson MD [address] [place] [address] Referring Physician Colon and Rectal Surgery 12/03/1805/06 Abbi Ventura MD [address] [facility] [address] [place], [place] [id number] Medical Oncologist/Client Associate Medical Oncology 12/03/18 Montse Thompson MD [address] [facility] [address] [place], [place] [id number] Consulting Physician Gynecologic Oncology 12/03/18 Lela Hardy MD PhD [address] [place] [address] [address] [place], [place] [id number] Radiation Oncologist Radiation Oncology 12/23/18 Aft, Kianna Machado MD PhD [address] [place] [address] [address] [place], [place] [id number] Surgeon Surgical Oncology 12/23/18 09/17/21 documented as of this encounter
--- OUTSIDE RECORDS SUMMARY | 2024-04-24 13:44 | XMS_ITS | Encounter Summary ---
Author Organization [facility] Care Team Providers Care Final Assembler Boat Name Role Phone Ravi Smith MD Primary Care Provider [phone] Aft, Kianna Machado MD PhD Unavailable Santiago Gilbert MD Unavailable Dmitry Sanderson MD Unavailable [phone] Abbi Ventura MD Unavailable Montse Thompson MD Unavailable [phone] Lela Hardy MD PhD Unavailable [phone] Aft, Kianna Machado MD PhD Unavailable [phone] Encounter Details Date Type Department Care Team (Latest Contact Info) Description 02/05/2019 Travel Social History Tobacco Use Types Packs/Day [...] on file 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 Gender Identity Not on file Sexual Orientation Not on file documented as of this encounter Plan of Treatment Not on file documented as of this encounter Visit Diagnoses Not on filedocumented in this encounter Care Teams Final Assembler Boat Relationship Specialty Start Date End Date Ravi Smith MD PCP - General 11/04/17 09/27/21 Kianna Bunch MD PhD [address] [place] [address] Surgeon Surgical Oncology 11/22/17 Santiago Gilbert MD [address] [place] [address] Forestry Instructor Gastroenterology 11/22/17 Dmitry Sanderson MD [address] [place] [address] Referring Physician Colon and Rectal Surgery 12/03/1805/06 Abbi Ventura MD [address] [place] [address] [address] [place] [address] Medical Oncologist/Assembler Equipment Medical Oncology 12/03/18 Montse Thompson MD [address] [place] [address] [address] [place] [address] Consulting Physician Gynecologic Oncology 12/03/18 Lela Hardy MD PhD [address] [place] [address] Radiation Oncologist Radiation Oncology 12/23/18 Kianna Bunch MD PhD [address] [place] [address] Surgeon Surgical Oncology 12/23/18 09/17/21 documented as of this encounter
--- OUTSIDE RECORDS SUMMARY | 2024-04-24 13:44 | XMS_ITS | Encounter Summary ---
Author Organization [facility] Healthcare Address [address] [place] [address] Care Team Providers Care Health Therapist Name Role Phone Ravi Smith MD Primary Care Provider [phone] Aft, Kianna Machado MD PhD Unavailable [phone] Santiago Gilbert MD Unavailable [phone] Dmitry Sanderson MD Unavailable [phone] Abbi Ventura MD Unavailable Montse Thompson MD Unavailable Lela Hardy MD PhD Unavailable Aft, Kianna Machado MD PhD Unavailable Encounter Details Date Type Department Care Team (Late st Contact Info) Description 02/13/2019 7:30 AM CDT - 02/13/2019 11:40 AM CDT Surgery [facility] Operating Room [address] [place] [address] Montse Thompson MD [id number] [place] [address] Diagnostic Laparoscopy Surgery Details Date/Time Status Location OR Service Patient Class Case Cl ass Case Type Trauma Case? 02/13/2019 7:30 AM Posted [facility] OR POD 1 327 Obstetrics / Gynecology Outpatient in Bed Elective Panel 1 Procedure LRB Anes Op Region Wound Class Comments Diagnostic Laparoscopy N/A General Abdomen Class I - Clean Si Robotic Assisted Total Laparoscopic Hysterectomy N/A General Pelvis Class II - Clean Contaminated Si Robotic Assisted Laparoscopic Salpingo Oophorectomy Bilateral General Abdomen Class I - Clean Cystoscopy N/A General Urethra Class II - Carlos an Contaminated Surgeon Surgeon Role Service Panel Montse Thompson MD Primary Obstetrics / Gy necology 1 Marlon Damon MD Resident - Assisting Obstetr ics / Gynecology 1 Ashlyn Shah MD Fellow Obstetrics / G ynecology 1 documented in this encounter Social History Tobacco [...] file 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 Gender Identity Not on file Sexual Orientation Not on file documented as of this encounter Last Filed Vital Signs Vital Sign Reading Time Taken Comments Blood Pressure 95/49 02/13/2019 11:40 AM CDT Pulse 66 02/13/2019 11:40 AM CDT Temperature 36.4 ??C (97.5 ??F) 02/13/2019 11:02 AM C DT Respiratory Rate 14 02/13/2019 11:40 AM CDT Oxygen Saturation 92% 02/13/2019 11:40 AM CDT Inhaled Oxygen Concentration - - Weight - - Height - - Body Mass Index - - documented in this encounter Discharge Summaries * Wade Jewell MD - 02/14/2019 7:33 AM CDT Inpatient Discharge Summary BRIEF OVERVIEW Admitting Provider: Montse Thompson MD Discharge Provider: Montse Thompson MD Primary Care Physician at Discharge: Ravi Smith MD [phone] Admission Date: 02/13/2019 Discharge Date: 02/14/2019 Admission Location: [facility] Primary Discharge Diagnosis: BRCA2+ mutation Secondary Discharge [...] Time Provider Department Center 03/02/2019 4:10 PM Premal Ac Thompson MD ONC CAM 13C OB 03/12/2019 8:45 AM PFT 2 CAM 8D PFT CAM 8D [facility] Pulmonary 03/18/2019 1:40 PM Zulema Dior, [facility] SC 04/01/2019 2:30 PM LAB, SC ONC ONC LAB SC [facility] ONC LAB 04/01/2019 3:00 PM Abbi Ventura MD ONC SC [facility] Oncology 04/27/2019 2:30 PM Mary Garcia MD PUL CTR 40 [facility] Pulmonary 06/04/2019 9:30 AM Jessica Swanson, BLAYNE ONC CAM 5F BOND 06/04/2019 11:[address] [facility] BCT3 BJ N CT [facility] Main IMG 08/18/2019 12:15 PM PFT 7 [...] Jewell MD - 02/14/2019 6:30 AM CDT [facility] TARIFF CLERK Oncology Post -Op note Subjective 63 y.o. [...] -- -- Recent Labs Lab Units 02/13/19 204 WBC K/cumm 9.4 HEMOGLOBIN g/dL 9.6* HEMATOCRIT [...] female with BRCA2 mutation for Dx lsc, RATLH, BSO. HPI: Ms. Gerber is a gaviota [...] a breast biopsy cavity on 11/11/[address] Bunch. The pathology from this demonstrates no evidence [...] breath) ??? SOB (shortness of breath) 2018 06/2 chemotherapy ??? TIA (transient ischemic attack) 2007 ??? Type 2 diabetes mellitus (CMS/HCC) ??? Vascular disease Past Surgical History: Procedure Laterality Date ??? BLADDER SUSPENSION 2010 ??? BREAST BIOPSY Left 11/12/2017 ??? BREAST BIOPSY Right 2008 Benign ??? BREAST LUMPECTOMY 2017 ??? COLONOSCOPY 2017 ??? HEMICOLECTOMY Left 12/27/2017 Laparoscopic left hemicolectomy ??? HERNIA REPAIR 1969' ??? INCONTINENCE SURGERY 2007 ??? INGUINAL HERNIA REPAIR Right 1970 ??? MASTECTOMY, PARTIAL Left 01/14/2018 Biopsy Breast Needle Localization partial mastectomy (L), Biopsy [place] Lymph Node With Lymphoscintigraphy (L), Insertion Port [...] 2,000 Units by mouth nightly Past Week at Unknown time ??? desoximetasone (TOPICORT) 0.25 % cream [...] OR today as planned Marlon Damon PGY-2 (THERAPEUTIC DIETITIAN) [phone] Cosigned by Montse Thompson MD at 02/13/2019 [...] sips of clears. * Hospital Course - Chase-Wade Fortune MD - 02/13/2019 1:42 PM CDT Patient [...] Surgical Team: ?? Surgeon(s) and Role: * Premal Ac Thompson MD - Primary * Marlon Damon MD - Resident - Assisting * Ashlyn Shah MD - Fellow ?? Anesthesiologist: Antony Lester Sr., MD IMPLEMENTATION PROJECT COORDINATOR: Lily Parada CRNA ?? Repair Clerk: Cat Brar RN Repair Clerk Relief: Kassie Levy RN Scrub: Cynthia Pascual CAREER SERVICES COORDINATOR: Delores Currie NP ?? DATE OF SURGERY [...] pelvic washings Fluid Pelvic Washing (Cytology) CYTOLOGY Premmaura Thompson MD 02/13/2019 0851 A : uterus, cervix, bilateral tubes and ovaries Tissue Uterus with/without tubes & ovaries, Neoplastic SURGICAL PATHOLOGY Montse Thompson MD 02/13/2019 1002 ?? Implants: Nothing [...] - Fellow Anesthesiologist: Antony Lester Sr., MD IMPLEMENTATION PROJECT COORDINATOR: Lily Parada CRNA Repair Clerk: Cat Brar RN Repair Clerk Relief: Kassie Levy RN Scrub: Cynthiakanika Pascual CAREER SERVICES COORDINATOR: Delores Currie NP DATE OF SURGERY : [...] Results * Phosphorus (02/13/2019 8:42 PM CDT) Pathologist [facility] Phosphorus, pl 3.6 2.3 - 4.5 mg/dL [facility] Blood specimen (specimen) 02/13/2019 8:42 PM CDT 02/13/2019 9:12 PM CDT [facility] LAB BLOOD ORDERABLES Fin al Result Performing Organization Address [facility] Co de Phone Number [address] [address] * Magnesium (02/13/2019 8:42 PM CDT) Pathologist [facility] Magnesium 1.8 1.4 - 2.5 mg/dL [facility] Blood specimen (specimen) 02/13/2019 8:42 PM CDT 02/13/2019 9:12 PM CDT [facility] Ac Thompson MD LAB BLOOD ORDERABLES Fin al Result Performing Organization Address [facility] Co de Phone Number [facility] [address] [place] [address] * (ABNORMAL) CBC without differential (02/13/2019 8:42 PM CDT) Pathologist [facility] WBC 9.4 3.8 - 9.9 K/cumm [facility] Hgb 9.6(L) 11.9 - 15.5 g/dL [facility] Hct 29.5(L) 35.6 - 45.5 % [facility] Plt 136(L) 150 - 400 K/cumm [facility] MPV 9.6 9.1 - 12.3 fL [facility] RBC 3.23(L) 3.90 - 5.20 M/cumm [facility] MCV 91.3 81.3 - 96.4 fL [facility] MCH 29.7 27.1 - 33.3 pg [facility] MCHC 32.5 32.3 - 35.7 g/dL [facility] RDW CV 15.2(H) 11.1 - 14.9 % [facility] RDW SD 51.6(H) 35.7 - 48.1 fL [facility] NRBC abs 0.00 0.00 - 0.01 K/cumm [facility] Blood specimen (specimen) 02/13/2019 8:42 PM CDT 02/13/2019 9:11 PM CDT us Premia Ac Thompson MD LAB BLOOD ORDERABLES Fin al Result [facility] [address] [place], [place] [id number] * (ABNORMAL) Basic metabolic panel (02/13/2019 8:42 PM CDT) Sodium 138 135 - 145 mmol/L [facility] Potassium, pl 3.9 3.3 - 4.9 mmol/L [facility] Chloride 103 97 - 110 mmol/L [facility] CO2 26 22 - 32 mmol/L [facility] Anion gap 9 2 - 15 mmol/L [facility] BUN 18 8 - 25 mg/dL [facility] Creatinine 1.17(H) 0.60 - 1.10 mg/dL [facility] Glucose 140 70 - 199 mg/dL [facility] Comment: Interpretive Data Fasting glucose [...] 2017. Calcium 8.7 8.5 - 10.3 mg/dL [facility] Blood specimen (specimen) 02/13/2019 8:42 PM CDT 02/13/2019 9:12 PM CDT Montse Thompson MD LAB BLOOD ORDERABLES Fin al Result Performing Organization Address [facility] Co de Phone Number [address] [address] * POCT glucose (02/13/2019 11:15 AM CDT) Glucose, POC 128 70 - 199 mg/dL [facility] Blood specimen (specimen) 02/13/2019 11:15 AM CDT 02/13/2019 11:15 AM CDT Montse Thompson MD LAB POCT ORDERABLES - DE VICE Final Result Performing Organization Address [facility] Phone Number [address] [address] * POCT glucose (02/13/2019 10:39 AM CDT) Glucose, POC 163 70 - 199 mg/dL [facility] Blood specimen (specimen) 02/13/2019 10:39 AM CDT 02/13/2019 10:39 AM CDT Montse Thompson MD LAB POCT ORDERABLES - DE VICE Final Result Performing Organization Address [facility] Phone Number [address] [address] * Surgical pathology (02/13/2019 10:02 AM CDT) 02/13/2019 10:0 2 AM CDT 02/13/2019 12:14 PM CDT Narrative 02/20/2019 8:35 PM CDT EPIC results best viewed via link to PDF [facility]a [facility] [place] [address] SURGICAL PATHOLOGY REPORT FINAL Patient Name: ?? ALEAH GERBER Gender: ??F : ??1955 (Age: 63) Address: ??[address] [place] [id number] Hospital #: ??[id number] Taken:02/13/2019 Received:02/13/2019 Reported: 02/20/2019 Patient Type: [facility] ?? Service: Surgery Location: [place] [address] Physician(s): ??Montse Thompson M.D. Ravi Smith M.D. Diagnosis: Uterus, cervix, bilateral tubes and [...] tube attached to uterine cornua, A9 and A02-jyqpj ovary serial sections, A13 and B53-gtkra fallopian tube serial sections, H09-hhxluli of fallopian tube attached to uterine cornua, G02-sittarsf exocervix, I80-hbjesksx endomyometrium, E48-cqaqmctqf exocervix, I14-icawrlcfv endomyometrium. ??Jar 2. ?? axa/02/13/2019 18:21 Lis Trivedi M.D. By this signature, I attest that the above diagnosis is based upon my personal examination of the slides(and/or other material). The performance characteristics of some immunohistochemical stains, fluorescence in-situ hybridization tests and immunophenotyping by flow cytometry cited in this report (if any) were determined by the Surgical Pathology Department at [facility] as part of an ongoing quality control engineer program and in compliance [...] by the Surgical Pathology Department of [facility]. ??It has not been cleared or approved by the U. S. Food and Drug Administration. IMAGES AND SCANNED DOCUMENTS, IF INCLUDED, ONLY VIEWABLE IN PDF VERSION OF REPORT us Premal Ac Thompson MD LAB PATHOLOGY ORDERABLES Final Result * Cytology (02/13/2019 8:51 AM CDT) Fluid (Pelvic Washing (Cytology)) 02/13/2019 8:51 AM CDT Narrative PATHOLOGY [facility] - 02/16/2019 3:34 PM CDT EPIC results best viewed via link to PDF [facility] Galilea Muñiz Laboratory [place] [address] CYTOPATHOLOGY REPORT FINAL Patient Name: ?? ALEAH GERBER Gender: ??F : ??1955 (Age: 63) Address: ??[address] [place], [place] ??[address] Hospital #: ??[id number] Taken:02/13/2019 Received:02/13/2019 Reported: 02/16/2019 Patient Type: [facility] ?? Service: Surgery Location: [place] [address] Physician(s): ??David Locke M.D. FINAL DIAGNOSIS A. Pelvic washings: ? - Negative for malignancy rcwp/02/16/2019 15:34 By this signature, I attest that the above diagnosis is based upon my personal examination of the slides(and/or other material indicated in the diagnosis). Neil Ball, DO Report Electronically Reviewed and Signed Out By ??Neil Ball DO 02/16/2019 15:34:16 Duglas Vázquez, CT(ASCP), [facility] Gross Description A. Pelvic washings: 50 ml [...] by the Surgical Pathology Department at [facility] as part of an ongoing quality control engineer program and in compliance [...] by the Surgical Pathology Department of [facility]. ??It has not been cleared or approved by the U. S. Food and Drug Administration. [facility] MD LAB CYTOLOGY ORDERABLES Final Result [facility] 3rd Floor [place], [place] [phone] * POCT glucose (02/13/2019 6:44 AM CDT) Glucose, POC 115 70 - 199 mg/dL [facility] Blood specimen (specimen) 02/13/2019 6:44 AM CDT 02/13/2019 6:44 AM CDT Montse Thompson MD LAB POCT ORDERABLES - DE VICE Final Result Performing Organization Address [facility] Co de Phone Number [facility] [address] [place] [address] documented in this encounter Visit Diagnoses Diagnosis BRCA2 gene mutation positive in female- Primary Malignant neoplasm of upper-inner quadrant of left breast in female, 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, estrogen receptor negative (HCC) BRCA2 gene mutation positive in female documented in this encounter Administered Medications Inactive [...] puff 1 puff, inhalation, 2 times daily (disaster response director), First dose (after last modification) on Sat02/13/19 at 2100, Rinse mouth with water after use. Do not swallow. Given 02/14/2019 8:26 AM CDT 1 puff Given 02/13/2019 9:17 PM CDT 1 puff fluticasone propion-salmeterol (ADVAIR DISKUS) 250-50 mcg/dose diskus inhaler 1 puff 1 puff, inhalation, 2 times daily (disaster response director), First dose (after last modification) on Sat02/14/19 [...] On 02/14/19 at 1200, For 1 dose Given 02/14/2019 [...] Anxiety with DepressionIndications:Anxiety with Depression Given 02/13/2019 8:30 PM CDT 50 mg simethicone (MYLICON) chewable tablet 80 mg 80 mg, oral, 4 times daily PRN, flatulence, bloating, fullness, and discomfort of gastrointestinal gas, Starting on Sat02/13/19 at 1325, Indications: FlatulenceIndications:Flatulence Given 02/13/2019 10:04 PM CDT 80 mg sodium chloride 0.9 % irrigation As needed, Starting on Sat02/13/19 at 0851, Intra-Op Given 02/13/2019 8:51 AM CDT 2,000 mL sodium chloride 0.9% flush 0.5-20 mL 0.5-20 [...] NSAIDS (03:00; 9:00, 15:00, 21:00), Indications: Pain 0339 (Given - Provid er: Deyanira Boothe RN)0811 (Given - Provider: Olamide Coleman) docusate sodium (COLACE) capsule 100 mg 100 mg, oral, 2 times daily, First dose on Sat02/13/19 at 1400, Hold if diarrhea., Indications: constipation, Stool Softener 1507 (Not Given - Provider: Tavia Ortega RN - Reason: Contraindicated)2029 (Given - Provider: Deyanira Boothe, LYDIA) 08 (Given - Provider: Olamide Coleman) enoxaparin (LOVENOX) syringe 40 mg (CANCELED) 40 mg, subcutaneous, Daily (for enoxaparin), First dose on Sat02/13/19 at 2100, Indications: Deep Vein Thrombosis Prevention 2029 (Given - Provider: Deyanira Boothe, LYDIA) fluticasone propion-salmeterol (ADVAIR DISKUS) 250-50 mcg/dose diskus inhaler 1 puff (CANCELED) 1 puff, inhalation, 2 times daily (disaster response director), First dose (after last modification) on Sat02/13/19 at 2100, Rinse mouth with water after use. Do not swallow. 2116 (Given - Provider: Jac Mccarty, PURCHASING OFFICER) 08 (Given - Provider: Olamide Coleman) fluticasone propion-salmeterol (ADVAIR DISKUS) 250-50 mcg/dose diskus inhaler 1 puff 1 puff, inhalation, 2 times daily (disaster response director), First dose (after last modification) on Sat02/14/19 at 2100, Rinse mouth with water after use. Do not swallow. RN TO ADMINISTER gabapentin (NEURONTIN) capsule 300 mg 300 mg, oral, 2 times daily, First dose on Sat02/13/19 at 1400, Indications: Pain 1507 (Not Given - Provider: Tavia Ortega RN - Reason: Contraindicated)2029 (Given - Provider: Deyanira Boothe, LYDIA) 08 (Given - Provider: Olamide Coleman) heparin 100 unit/mL injection 500 Units (COMPLETED) 500 Units (5 mL), IV flush, Once, On Sat02/14/19 at 1200, For 1 dose 112 (Given - Provid er: Olamide Coleman) ibuprofen [...] 20 mg, oral, Nightly, First dose on Sat02/14/19 at 2100, Administer doses greater than or [...] Sat02/13/19 at 2100, Indications: Anxiety with Depression 2030 (Given - Provider: Deyanira Boothe RN) sodium chloride 0.9% flush 0.5-20 mL 0.5-20 mL, intra-catheter, Every 8 hours scheduled, First dose on Sat02/13/19 at 1400, Flush volume based on line type and size. 1743 (Given - Provider: Tavia Ortega RN)2032 (Given - Provider: Deyanira Boothe RN) 0557 (Given - Provider: Deyanira Boothe RN) Continuous Medication Order 02/12/2019 02/13/2019 02/14/2019 Lactated [...] Every 6 hours PRN, wheezing, Starting on Sat02/14/19 at 0907, RN TO ADMINISTER, Indications: Acute [...] Indications: Pain 1123 (Given - Provider: Galilea Pabon RN) ondansetron (ZOFRAN) injection 4 mg(Linked Group 1) [...] Indications: Pain 1338 (Given - Provider: Tavia Ortega, LYDIA)1742 (Given - Provider: Tavia Ortega RN)2201 (Given - Provider: Deyanira Boothe RN) simethicone (MYLICON) chewable tablet 80 mg 80 mg, oral, 4 times daily PRN, flatulence, bloating, fullness, and discomfort of gastrointestinal gas, Starting on Sat02/13/19 at 1325, Indications: Flatulence 220 (Given - Provider: Deyanira Boothe, LYDIA) sodium chloride 0.9 % irrigation (CANCELED) As [...] tablet 20 mg 1 2018 sodium chloride 0.9% flush 0.5-20 mL 3 [...] 02/13/2019 documented in this encounter Care Teams Health Therapist Relationship Specialty Start Date End Date Ravi Smith MD PCP - General 11/04/17 09/27/21 Aft, Kianna Machado MD PhD [address] [place] [address] Surgeon Surgical Oncology 11/22/17 Santiago Gilbert MD [address] [place] [address] Erector Operator Gastroenterology 11/22/17 Dmitry Sanderson MD [address] [place] [address] Referring Physician Colon and Rectal Surgery 12/03/1805/06 Abbi Ventura MD [address] [facility] [address] [place] [address] Medical Oncologist/Underwriting Intern Medical Oncology 12/03/18 Montse Thompson MD [address] [facility] [address] [place] [address] Consulting Physician Gynecologic Oncology 12/03/18 Lela Hardy MD PhD [address] [facility] [address] [place], [place] [id number] Radiation Oncologist Radiation Oncology 12/23/18 Aft, Kianna Machado MD PhD [address] [facility] [address] [place] [address] Surgeon Surgical Oncology 12/23/18 09/17/21 documented as of this encounter
--- OUTSIDE RECORDS SUMMARY | 2024-04-24 13:45 | XMS_ITS | Encounter Summary ---
Author Organization [facility] Healthcare Address [address] [place] [address] Care Team Providers Care Resident Care Manager Name Role Phone Ravi Smith MD Primary Care Provider [phone] Aft, Kianna Machado MD PhD Unavailable [phone] Santiago [place] MD Unavailable [phone] Dmitry Sanderson MD Unavailable [phone] Abbi Ventura MD Unavailable Montse Thompson MD Unavailable [phone] Lela Hardy MD PhD Unavailable [phone] Aft, Kianna Machado MD PhD Unavailable [phone] Encounter Details Date Type Department Care Team (Late st Contact Info) Description 01/27/2019 1:[address] 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 Gender Identity Not on file Sexual Orientation Not on file documented as of this encounter Plan of Treatment Not on file documented as of this encounter Visit Diagnoses Not on filedocumented in this encounter Care Teams Resident Care Manager Relationship Specialty Start Date End Date Ravi Smith MD PCP - General 11/04/17 09/27/21 AfKianna simpson MD PhD [address] [place] [address] Surgeon Surgical Oncology 11/22/17 Santiago [place] MD [address] [place] [address] Mold Burner Gastroenterology 11/22/17 Dmitry Sanderson MD [address] [place] [address] Referring Physician Colon and Rectal Surgery 12/03/1805/06 Abbi Ventura MD [address] [place] [address] [address] [place] [address] Medical Oncologist/President [employer] Medical Oncology 12/03/18 Montse Thompson MD [address] [facility] [address] [place], [place] [address] Consulting Physician Gynecologic Oncology 12/03/18 Lela Hardy MD PhD [address] [place] [address] [address] [place] [address] Radiation Oncologist Radiation Oncology 12/23/18 Kianna Bunch MD PhD [address] [facility] [address] [place] [address] Surgeon Surgical Oncology 12/23/18 09/17/21 documented as of this encounter
--- OUTSIDE RECORDS SUMMARY | 2024-04-24 13:45 | XMS_ITS | Encounter Summary ---
Author Organization [facility] Healthcare Address [address] [place] [address] Care Team Providers Care Associate Creative Director Name Role Phone Ravi Smith MD Primary Care Provider [phone] Aft, Kianna Machado MD PhD Unavailable [phone] Santiago [place] MD Unavailable [phone] Dmitry Sanderson MD Unavailable [phone] Abbi Ventura MD Unavailable Montse Thompson MD Unavailable [phone] Lela Hardy MD PhD Unavailable [phone] Aft, Kianna Machado MD PhD Unavailable [phone] Encounter Details Date Type Department Care Team (Late st Contact Info) Description 01/16/2019 2:00 PM CDT Treatment [facility] Radiation Oncology at [facility] [address] [place] [address] Social History Tobacco Use Types Packs/Day Years [...] on file 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 Gender Identity Not on file Sexual Orientation Not on file documented as of this encounter Plan of Treatment Not on file documented as of this encounter Visit Diagnoses Not on filedocumented in this encounter Care Teams Associate Creative Director Relationship Specialty Start Date End Date Ravi Smith MD PCP - General 11/04/17 09/27/21 AfKianna simpson MD PhD [address] [place] [address] Surgeon Surgical Oncology 11/22/17 Santiago [place] MD [address] [place] [address] Imaging Services Director Gastroenterology 11/22/17 Dmitry Sanderson MD [address] [place] [address] Referring Physician Colon and Rectal Surgery 12/03/1805/06 Abbi Ventura MD [address] [place] [address] [address] [place] [address] Medical Oncologist/Medicaid Plan Compliance Director Medical Oncology 12/03/18 Montse Thompson MD [address] [facility] [address] [place], [place] [address] Consulting Physician Gynecologic Oncology 12/03/18 Lela [place] MD PhD [address] [place] [address] [address] [place] [address] Radiation Oncologist Radiation Oncology 12/23/18 Kianna Bunch MD PhD [address] [facility] [address] [place] [address] Surgeon Surgical Oncology 12/23/18 09/17/21 documented as of this encounter
--- OUTSIDE RECORDS SUMMARY | 2024-04-24 13:45 | XMS_ITS | Encounter Summary ---
Author Organization [facility] Healthcare Address [address] [place] [address] Care Team Providers Care Liner Worker Name Role Phone Ravi Smith MD Primary Care Provider [phone] Aft, Kianna Machado MD PhD Unavailable [phone] Santiago [place] MD Unavailable [phone] Dmitry Sanderson MD Unavailable [phone] Abbi Ventura MD Unavailable Montse Thompson MD Unavailable [phone] Lela Hardy MD PhD Unavailable Aft, Kianna Machado MD PhD Unavailable [phone] Encounter Details Date Type Department Care Team (Late st Contact Info) Description 01/14/2019 Orders Only RAD ONC TREATMENTS Miscellaneous, Not [...] on file 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 Gender Identity Not on file Sexual Orientation Not on file documented as of this encounter Plan of Treatment Not on file documented as of this encounter Procedures Procedure Name Priority Date/Time Associated Diagnosis Comments RAD ONC ARIA SESSION SUMMARY 01/14/2019 3:37 PM CDT documented in this encounter Results * RAD ONC ARIA SESSION SUMMARY (01/14/2019 3:37 PM CDT) Course Name C1 L BRS IN 2018 ARIA Course Plan Date 12/26/2018 4:45 PM ARIA Elapsed Days 7 ARIA Treatment Start Date 01/07/2019 ARIA Treatment Site BST DPV ARIA Dose Given To Date (cGy) 200 ARIA Session Dosage Given (cGy) 200 ARIA Plan ID RESCAN_BST ARIA Fractions Treated 1 ARIA Prescribed Dose Per Fraction (cGy) 200 ARIA Prescribed Total Dose (cGy) 1,000 ARIA 01/14/2019 3:37 PM CDT us Not In File Miscellaneous RADIATION ONCOLOGY ORD ERABLES Final Result ARIA documented in this encounter Visit Diagnoses Not on filedocumented in this encounter Care Teams Liner Worker Relationship Specialty Start Date End Date Ravi Smith MD PCP - General 11/04/17 09/27/21 Aft, Kianna Machado MD PhD [address] [place] [address] Surgeon Surgical Oncology 11/22/17 Santiago [place] MD [address] [place] [address] Metal Drill Press Operator Gastroenterology 11/22/17 Dmitry Sanderson MD [address] [place] [address] Referring Physician Colon and Rectal Surgery 12/03/1805/06 Abbi Ventura MD [address] [facility] [address] [place], [place] [id number] Medical Oncologist/Risk Advisor Medical Oncology 12/03/18 Montse Thompson MD [address] [facility] [address] [place], [place] [address] Consulting Physician Gynecologic Oncology 12/03/18 Lela Hardy MD PhD [address] [place] [address] [address] [place] [address] Radiation Oncologist Radiation Oncology 12/23/18 Aft, Kianna Machado MD PhD [address] [facility] [address] [place], [place] [address] Surgeon Surgical Oncology 12/23/18 09/17/21 documented as of this encounter
--- OUTSIDE RECORDS SUMMARY | 2024-04-24 13:45 | XMS_ITS | Encounter Summary ---
Author Organization [facility] Healthcare Address [address] [place] [address] Care Team Providers Care Child Care Lead Teacher Name Role Phone Ravi Smith MD Primary Care Provider [phone] Aft, Kianna Machado MD PhD Unavailable [phone] Santiago [place] MD Unavailable [phone] Dmitry Sanderson MD Unavailable [phone] Abbi Ventura MD Unavailable Montse Thompson MD Unavailable [phone] Lela Hardy MD PhD Unavailable Aft, Kianna Machado MD PhD Unavailable [phone] Reason for Visit * Reason Comments OTV Encounter Details Date Type Department Care Team (Late st Contact Info) Description 01/14/[address] 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 Gender Identity Not on file Sexual Orientation Not on file documented as of this encounter Last Filed Vital Signs Vital Sign Reading Time Taken Comments Blood Pressure - - Pulse - - Temperature - - Respiratory Rate - - Oxygen Saturation - - Inhaled Oxygen Concentration - - Weight 105.8 kg (233 lb 3.2 oz) 01/14/2019 3:45 PM CDT Height - - Body Mass Index 34.44 12/25/2018 9:12 AM CDT documented in this encounter Progress Notes * Alverto Baker MD PhD - 01/14/2019 3:45 PM CDT Staff Physician: Lela Hardy MD PhD Referring Physician: Patient Care Team: Dmitry Sanderson MD as Referring Physician (Colon and Rectal Surgery) Kianna Bunch MD PhD as Referring Physician (Surgical Oncology) Date of Service: 01/14/2019 RADIATION ONCOLOGY ON TREATMENT VISIT (OTV) NOTE Diagnosis: Cancer Staging Malignant neoplasm of upper-inner quadrant of left breast in female, 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) Staging form: Breast, AJCC 8th Edition - Pathologic: Stage IIA (pT2, pN0(sn), cM0, G3, ER-, NV-, HER2-) - Signed by Roger Dorsey MD on 12/23/2018 - Clinical: Stage IIB (cT2, cN0, cM0, G3, ER-, NV-, HER2-) - Signed by Lela Hardy MD [...] the prone position. TREATMENT: She has received 5/16 fractions whole breast, and 1/5 fractions of the boost. SUBJECTIVE: States he is doing overall well. Endorses some new mild pain underneath the nipple and in axilla. It is tolerable, does not feel she needs any medications for pain. Also notes becoming increasingly anxious with treatments. Was taking ativan Rx'd by PCP prior to treatments; however, has run out and feels very claustrophobic and restricted without it. She also denies any masses or changes in her breast or chest wall, headaches, vision changes, gait instability, cough, shortness of breath, nausea, abdominal pain, bone or joint pain. EXAM: Wt 105.8 kg (233 lb 3.2 oz) BMI 34.44 kg/m?? Pain Score and Location 01/14/19 1545 PainSc: 0-No pain General: NAD Pulm: Normal work of breathing Left breast: There is a well-healed partial mastectomy incision which is clean, dry, and intact. There are no suspicious skin changes, no palpable masses, and no nipple discharge. Right breast: Breasts appear normal with no overlying skin changes, no palpable masses Lymph nodes: No palpable axillary, supraclavicular, or infraclavicular lymphadenopathy Neuro: AOx4, gait WNL, speech clear Hyperpigmentation: absent Breast or Chest Wall:1 - Faint erythema or dry desquamation Axilla:0 - None Inframammary Sulcus: 0 - None Fatigue: 1 - Fatigue relieved by rest ASSESSMENT Experiencing anticipated side effects PLANS Continue with treatment RAD ONC PAIN PLAN: The patient is not currently having any pain that requires changes in pain management. Recommended continues skin care Ordered Ativan 0.5 mg x 15 to be used 1 hour prior to treatment Alverto Baker MD, PhD Radiation Oncology, PGY2 01/14/2019 4:17 PM Cosigned by Lela Hardy MD PhD at 01/19/2019 11:57 PM CDT Associated attestation - Lela Hardy MD PhD - 01/19/2019 11:57 PM CDT I have seen and examined this patient today. I discussed the case with the resident and agree with the findings and plan as documented in the resident's note. documented in this encounter Plan of Treatment Not on file documented as of this encounter Visit Diagnoses Diagnosis Malignant neoplasm of upper-inner quadrant of left breast in female, estrogen receptor negative (HCC)- Primary documented in this encounter Care Teams Child Care Lead Teacher Relationship Specialty Start Date End Date Ravi Smith MD PCP - General 11/04/17 09/27/21 Aft, Kianna Machado MD PhD [address] [place] [address] Surgeon Surgical Oncology 11/22/17 Santiago [place] MD [address] [place] [address] Pneumatic Riveter Gastroenterology 11/22/17 Dmitry Sanderson MD [address] [place] [address] Referring Physician Colon and Rectal Surgery 12/03/1805/06 Abbi Ventura MD [facility] [address] [place] [address] Medical Oncologist/Regulatory Consultant Medical Oncology 12/03/18 Montse [place] MD [address] [place] [address] Consulting Physician Gynecologic Oncology 12/03/18 Lela [place] MD PhD [address] [place] [address] Radiation Oncologist Radiation Oncology 12/23/18 Aft, Kianna Machado MD PhD [address] [place] [address] Surgeon Surgical Oncology 12/23/18 09/17/21 documented as of this encounter
--- OUTSIDE RECORDS SUMMARY | 2024-04-24 13:45 | XMS_ITS | Encounter Summary ---
Author Organization [facility] Healthcare Address [address] [place] [address] Care Team Providers Care Laundry Helper Name Role Phone Ravi Smith MD Primary Care Provider [phone] Aft, Kianna Machado MD PhD Unavailable [phone] Santiago [place] MD Unavailable [phone] Dmitry Sanderson MD Unavailable [phone] Abbi Ventura MD Unavailable Montse Thompson MD Unavailable [phone] Lela Hardy MD PhD Unavailable [phone] Aft, Kianna Machado MD PhD Unavailable [phone] Encounter Details Date Type Department Care Team (Late st Contact Info) Description 01/30/2019 1:00 PM CDT Treatment [facility] Radiation Oncology at [facility] [address] [place] [address] Social History Tobacco Use Types Packs/Day Years [...] on file 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 Gender Identity Not on file Sexual Orientation Not on file documented as of this encounter Plan of Treatment Not on file documented as of this encounter Visit Diagnoses Not on filedocumented in this encounter Care Teams Laundry Helper Relationship Specialty Start Date End Date Ravi Smith MD PCP - General 11/04/17 09/27/21 AfKianna simpson MD PhD [address] [place] [address] Surgeon Surgical Oncology 11/22/17 Santiago [place] MD [address] [place] [address] Inflatable Buildings Laminator Gastroenterology 11/22/17 Dmitry Sanderson MD [address] [place] [address] Referring Physician Colon and Rectal Surgery 12/03/1805/06 Abbi Ventura MD [address] [place] [address] [address] [place] [address] Medical Oncologist/Solar Hot Water Installer Medical Oncology 12/03/18 Montse [place] MD [address] [facility] [address] [place], [place] [address] Consulting Physician Gynecologic Oncology 12/03/18 Lela Hardy MD PhD [address] [place] [address] [address] [place] [address] Radiation Oncologist Radiation Oncology 12/23/18 Kianna Bunch MD PhD [address] [facility] [address] [place] [address] Surgeon Surgical Oncology 12/23/18 09/17/21 documented as of this encounter
--- OUTSIDE RECORDS SUMMARY | 2024-04-24 13:45 | XMS_ITS | Encounter Summary ---
Author Organization [facility] Healthcare Address [address] [place] [address] Care Team Providers Care Licensed Electrician Name Role Phone Ravi Smith MD Primary Care Provider [phone] Aft, Kianna Machado MD PhD Unavailable [phone] Santiago [place] MD Unavailable [phone] Dmitry Sanderson MD Unavailable [phone] Abbi Ventura MD Unavailable Montse Thompson MD Unavailable [phone] Lela Hardy MD PhD Unavailable [phone] Aft, Kianna Machado MD PhD Unavailable [phone] Encounter Details Date Type Department Care Team (Late st Contact Info) Description 01/26/2019 1:00 PM CDT Treatment [facility] Radiation Oncology at [facility] [address] [place] [address] Social History Tobacco Use Types Packs/Day Years [...] on file 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 Gender Identity Not on file Sexual Orientation Not on file documented as of this encounter Plan of Treatment Not on file documented as of this encounter Visit Diagnoses Not on filedocumented in this encounter Care Teams Licensed Electrician Relationship Specialty Start Date End Date Ravi Smith MD PCP - General 11/04/17 09/27/21 AfKianna simpson MD PhD [address] [place] [address] Surgeon Surgical Oncology 11/22/17 Santiago [place] MD [address] [place] [address] Manager Statistical Programming Gastroenterology 11/22/17 Dmitry Sanderson MD [address] [place] [address] Referring Physician Colon and Rectal Surgery 12/03/1805/06 Abbi Ventura MD [address] [place] [address] [address] [place] [address] Medical Oncologist/Divisional Human Resources Director Medical Oncology 12/03/18 Montse Thompson MD [address] [facility] [address] [place], [place] [address] Consulting Physician Gynecologic Oncology 12/03/18 eLla Hardy MD PhD [address] [place] [address] [address] [place] [address] Radiation Oncologist Radiation Oncology 12/23/18 Kianna Bunch MD PhD [address] [facility] [address] [place] [address] Surgeon Surgical Oncology 12/23/18 09/17/21 documented as of this encounter
--- OUTSIDE RECORDS SUMMARY | 2024-04-24 13:45 | XMS_ITS | Encounter Summary ---
Author Organization [facility] Healthcare Address [address] [place] [address] Care Team Providers Care Ironer Machine Name Role Phone Ravi Smith MD Primary Care Provider [phone] Aft, Kianna Machado MD PhD Unavailable [phone] Santiago [place] MD Unavailable [phone] Dmitry Sanderson MD Unavailable [phone] Abbi Ventura MD Unavailable Montse Thompson MD Unavailable [phone] Lela Hardy MD PhD Unavailable [phone] Aft, Kianna Machado MD PhD Unavailable [phone] Encounter Details Date Type Department Care Team (Late st Contact Info) Description 01/22/2019 1:15 PM CDT Treatment [facility] Radiation Oncology at [facility] [address] [place] [address] Social History Tobacco Use Types Packs/Day Years [...] file 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 CABLE 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 Gender Identity Not on file Sexual Orientation Not on file documented as of this encounter Plan of Treatment Not on file documented as of this encounter Visit Diagnoses Not on filedocumented in this encounter Care Teams Ironer Machine Relationship Specialty Start Date End Date Ravi Smith MD PCP - General 11/04/17 09/27/21 AfKianna simpson MD PhD [address] [place] [address] Surgeon Surgical Oncology 11/22/17 Santiago [place] MD [address] [place] [address] Church History Teacher Gastroenterology 11/22/17 Dmitry Sanderson MD [address] [place] [address] Referring Physician Colon and Rectal Surgery 12/03/1805/06 Abbi Ventura MD [address] [place] [address] [address] [place] [address] Medical Oncologist/Photographic Lithographer Medical Oncology 12/03/18 Montse Thompson MD [address] [facility] [address] [place], [place] [address] Consulting Physician Gynecologic Oncology 12/03/18 Lela Hardy MD PhD [address] [place] [address] [address] [place] [address] Radiation Oncologist Radiation Oncology 12/23/18 Kianna Bunch MD PhD [address] [facility] [address] [place] [address] Surgeon Surgical Oncology 12/23/18 09/17/21 documented as of this encounter
--- OUTSIDE RECORDS SUMMARY | 2024-04-24 13:45 | XMS_ITS | Encounter Summary ---
Author Organization [facility] Healthcare Address [address] [place] [address] Care Team Providers Care Subacute Nurse Name Role Phone Ravi Smith MD Primary Care Provider [phone] Aft, Kianna Machado MD PhD Unavailable [phone] Santiago [place] MD Unavailable [phone] Dmitry Sanderson MD Unavailable [phone] Abbi Ventura MD Unavailable Montse Thompson MD Unavailable [phone] Lela Hardy MD PhD Unavailable [phone] Aft, Kianna Machado MD PhD Unavailable [phone] Encounter Details Date Type Department Care Team (Late st Contact Info) Description 01/19/2019 1:30 PM CDT Treatment [facility] Radiation Oncology at [facility] [address] [place] [address] Social History Tobacco Use Types Packs/Day Years [...] on file Legal 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 Gender Identity Not on file Sexual Orientation Not on file documented as of this encounter Plan of Treatment Not on file documented as of this encounter Visit Diagnoses Not on filedocumented in this encounter Care Teams Subacute Nurse Relationship Specialty Start Date End Date Ravi Smith MD PCP - General 11/04/17 09/27/21 AfKianna simpson MD PhD [address] [place] [address] Surgeon Surgical Oncology 11/22/17 Santiago [place] MD [address] [place] [address] Industrial Relations Director Gastroenterology 11/22/17 Dmitry Sanderson MD [address] [place] [address] Referring Physician Colon and Rectal Surgery 12/03/1805/06 Abbi Ventura MD [address] [place] [address] [address] [place] [address] Medical Oncologist/Fruit Harvester Machine Operator Medical Oncology 12/03/18 Montse [place] MD [address] [facility] [address] [place], [place] [address] Consulting Physician Gynecologic Oncology 12/03/18 Lela [place] MD PhD [address] [place] [address] [address] [place] [address] Radiation Oncologist Radiation Oncology 12/23/18 Kianna Bunch MD PhD [address] [facility] [address] [place] [address] Surgeon Surgical Oncology 12/23/18 09/17/21 documented as of this encounter
--- OUTSIDE RECORDS SUMMARY | 2024-04-24 13:45 | XMS_ITS | Encounter Summary ---
Author Organization [facility] Healthcare Address [address] [place] [address] Care Team Providers Care Janitor Cleaner Name Role Phone Ravi Smith MD Primary Care Provider [phone] Aft, Kianna Machado MD PhD Unavailable [phone] Santiago [place] MD Unavailable [phone] Dmitry Sanderson MD Unavailable [phone] Abbi Ventura MD Unavailable Montse Thompson MD Unavailable [phone] Lela Hardy MD PhD Unavailable [phone] Aft, Kianna Machado MD PhD Unavailable [phone] Encounter Details Date Type Department Care Team (Late st Contact Info) Description 02/02/2019 1:00 PM CDT Treatment [facility] Radiation Oncology at [facility] [address] [place] [address] Social History Tobacco Use Types Packs/Day Years [...] on file Legal 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 Female 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 CONCESSION 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 Gender Identity Not on file Sexual Orientation Not on file documented as of this encounter Plan of Treatment Not on file documented as of this encounter Visit Diagnoses Not on filedocumented in this encounter Care Teams Janitor Cleaner Relationship Specialty Start Date End Date Ravi Smith MD PCP - General 11/04/17 09/27/21 AfiKanna simpson MD PhD [address] [place] [address] Surgeon Surgical Oncology 11/22/17 Santiago [place] MD [address] [place] [address] Technical Photographer Gastroenterology 11/22/17 Dmitry Sanderson MD [address] [place] [address] Referring Physician Colon and Rectal Surgery 12/03/1805/06 Abbi Ventura MD [address] [place] [address] [address] [place] [address] Medical Oncologist/Type Casting Machine Operator Medical Oncology 12/03/18 Montse Thompson MD [address] [facility] [address] [place], [place] [address] Consulting Physician Gynecologic Oncology 12/03/18 Lela Hardy MD PhD [address] [place] [address] [address] [place] [address] Radiation Oncologist Radiation Oncology 12/23/18 Kianna Bunch MD PhD [address] [facility] [address] [place] [address] Surgeon Surgical Oncology 12/23/18 09/17/21 documented as of this encounter
--- OUTSIDE RECORDS SUMMARY | 2024-04-24 13:45 | XMS_ITS | Encounter Summary ---
Author Organization [facility] Healthcare Address [address] [place] [address] Care Team Providers Care Machine Ii Trimmer Name Role Phone Ravi Smith MD Primary Care Provider [phone] Aft, Kianna Machado MD PhD Unavailable [phone] Santiago Gilbert MD Unavailable [phone] Dmitry Sanderson MD Unavailable [phone] Abbi Ventura MD Unavailable Montse Thompson MD Unavailable [phone] Lela Hardy MD PhD Unavailable Aft, Kianna Machado MD PhD Unavailable [phone] Encounter Details Date Type Department Care Team (Late st Contact Info) Description 01/26/2019 Orders Only RAD ONC TREATMENTS Miscellaneous, Not [...] on file Legal Sex Female 1:06 AM OFFICE SERVICE COORDINATOR Gender Identity Not on file Sexual Orientation Not on file documented as of this encounter Plan of Treatment Not on file documented as of this encounter Procedures Procedure Name Priority Date/Time Associated Diagnosis Comments RAD ONC ARIA SESSION SUMMARY 01/26/2019 1:02 PM CDT documented in this encounter Results * RAD ONC ARIA SESSION SUMMARY (01/26/2019 1:02 PM CDT) Course Name C1 L BRS [place] 2018 ARIA Course Plan Date 12/26/2018 4:45 PM ARIA Elapsed Days 19 ARIA Treatment Start Date 01/07/2019 ARIA Treatment Site [facility] DPV ARIA Dose Given To Date (cGy) 3,192 ARIA Session Dosage Given (cGy) 266 ARIA Plan ID RESCAN TANGS ARIA Fractions Treated 9 ARIA Prescribed Dose Per Fraction (cGy) 266 ARIA Prescribed Total Dose (cGy) 3,458 ARIA 01/26/2019 1:02 PM CDT us Not In File Miscellaneous RADIATION ONCOLOGY ORD ERABLES Final Result ARIA documented in this encounter Visit Diagnoses Not on filedocumented in this encounter Care Teams Machine Ii Trimmer Relationship Specialty Start Date End Date Ravi Smith MD PCP - General 11/04/17 09/27/21 Aft, Kianna Machado MD PhD [address] [place] [address] Surgeon Surgical Oncology 11/22/17 Santiago Gilbert MD [address] [place] [address] Toe Trimmer Gastroenterology 11/22/17 Dmitry Sanderson MD [address] [place] [address] Referring Physician Colon and Rectal Surgery 12/03/1805/06 Abbi Ventura MD [address] [facility] [address] [place], [place] [id number] Medical Oncologist/Card Dealer Medical Oncology 12/03/18 Montse Thompson MD [address] [facility] [address] [place], [place] [id number] Consulting Physician Gynecologic Oncology 12/03/18 Lela Hardy MD PhD [address] [place] [address] [address] [place], [place] [id number] Radiation Oncologist Radiation Oncology 12/23/18 Aft, Kianna Machado MD PhD [address] [place] [address] [address] [place], [place] [id number] Surgeon Surgical Oncology 12/23/18 09/17/21 documented as of this encounter
--- OUTSIDE RECORDS SUMMARY | 2024-04-24 13:45 | XMS_ITS | Encounter Summary ---
Author Organization [facility] Healthcare Address [address] [place] [address] Care Team Providers Care Longwall Shearer Operator Name Role Phone Ravi Smith MD Primary Care Provider [phone] Aft, Kianna Macahdo MD PhD Unavailable Santiago Gilbert MD Unavailable [phone] Dmitry Sanderson MD Unavailable [phone] Abbi Ventura MD Unavailable Montse Thompson MD Unavailable [phone] Lela Hardy MD PhD Unavailable [phone] Aft, Kianna Machado MD PhD Unavailable [phone] Encounter Details Date Type Department Care Team (Late st Contact Info) Description 01/23/2019 Orders Only RAD ONC TREATMENTS Miscellaneous, Not [...] on file 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 Female 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 Gender Identity Not on file Sexual Orientation Not on file documented as of this encounter Plan of Treatment Not on file documented as of this encounter Procedures Procedure Name Priority Date/Time Associated Diagnosis Comments RAD ONC ARIA SESSION SUMMARY 01/23/2019 1:28 PM CDT documented in this encounter Results * RAD ONC ARIA SESSION SUMMARY (01/23/2019 1:28 PM CDT) Course Name C1 L BRS [place] 2018 ARIA Course Plan Date 12/26/2018 4:45 PM ARIA Elapsed Days 16 ARIA Treatment Start Date 01/07/2019 ARIA Treatment Site [facility] DPV ARIA Dose Given To Date (cGy) 2,926 ARIA Session Dosage Given (cGy) 266 ARIA Plan ID RESCAN TANGS ARIA Fractions Treated 8 ARIA Prescribed Dose Per Fraction (cGy) 266 ARIA Prescribed Total Dose (cGy) 3,458 ARIA 01/23/2019 1:28 PM CDT us Not In File Miscellaneous RADIATION ONCOLOGY ORD ERABLES Final Result ARIA documented in this encounter Visit Diagnoses Not on filedocumented in this encounter Care Teams Longwall Shearer Operator Relationship Specialty Start Date End Date Ravi Smith MD PCP - General 11/04/17 09/27/21 Aft, Kianna Machado MD PhD [address] [place] [address] Surgeon Surgical Oncology 11/22/17 Santiago Gilbert MD [address] [place] [address] Double Bass Player Gastroenterology 11/22/17 Dmitry Sanderson MD [address] [place] [address] Referring Physician Colon and Rectal Surgery 12/03/1805/06 Abbi Ventura MD [address] [place] [address] [address] [place], [place] [id number] Medical Oncologist/Insurance Territory Manager Medical Oncology 12/03/18 Montse Thompson MD [address] [facility] [address] [place], [place] [id number] Consulting Physician Gynecologic Oncology 12/03/18 Lela Hardy MD PhD [address] [place] [address] [address] [place], [place] [id number] Radiation Oncologist Radiation Oncology 12/23/18 Aft, Kianna Machado MD PhD [address] [place] [address] [address] [place], [place] [address] Surgeon Surgical Oncology 12/23/18 09/17/21 documented as of this encounter
--- OUTSIDE RECORDS SUMMARY | 2024-04-24 13:45 | XMS_ITS | Encounter Summary ---
Author Organization [facility] Healthcare Address [address] [place] [address] Care Team Providers Care Multifocal Lens Assembler Name Role Phone Ravi Smith MD Primary Care Provider [phone] Aft, Kianna Machado MD PhD Unavailable [phone] Santiago Gilbert MD Unavailable [phone] Dmitry Sanderson MD Unavailable [phone] Abbi Ventura MD Unavailable Montse Thompson MD Unavailable Lela Hardy MD PhD Unavailable [phone] Aft, Kianna Machado MD PhD Unavailable Reason for Visit * Reason Comments OTV Encounter Details Date Type Department Care Team (Late st Contact Info) Description 01/21/2019 OTV [facility] Radiation Oncology at [facility] [address] [place] [address] Lela Hardy MD PhD [address] [facility] [address] [place] [address] Malignant neoplasm of upper-inner quadrant of left [...] file 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 Gender Identity Not on file Sexual Orientation Not on file documented as of this encounter Last Filed Vital Signs Vital Sign Reading Time Taken Comments Blood Pressure - - Pulse - - Temperature - - Respiratory Rate - - Oxygen Saturation - - Inhaled Oxygen Concentration - - Weight 106.6 kg (235 lb 1.6 oz) 01/21/2019 1:41 PM CDT Height - - Body Mass Index 34.72 12/25/2018 9:12 AM CDT documented in this encounter Progress Notes * Lela Hardy MD PhD - 01/21/2019 1:41 PM CDT Radiation Oncologist: Lela Hardy MD PhD Primary Care Physician: Ravi Smith MD Medical Oncologist: Abbi Ventura MD Surgeon: Kianna Bunch MD PhD Referring Physician: Patient Care Team: Dmitry Sanderson MD as Referring Physician (Colon and Rectal Surgery) Kianna Bunch MD PhD as Referring Physician (Surgical Oncology) Date of Service: 01/21/2019 RADIATION ONCOLOGY ON TREATMENT VISIT (OTV) NOTE Diagnosis: Cancer Staging Malignant neoplasm of upper-inner quadrant of left breast in female, 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) Staging form: Breast, AJCC 8th Edition - Pathologic: Stage IIA (pT2, pN0(sn), cM0, G3, ER-, CO-, HER2-) - Signed by Roger Dorsey MD on 12/23/2018 - Clinical: Stage IIB (cT2, cN0, cM0, G3, ER-, CO-, HER2-) - Signed by Lela Hardy MD PhD on01/01/2019 Encounter Diagnosis Name Primary? Malignant neoplasm of upper-inner quadrant of left breast in female, estrogen receptor negative(CMS/HCC) Yes TREATMENT: Radiation Treatments Active Plans L BREAST Most recent treatment: Dose planned: 266 cGy (fraction 3 on 01/09/2019) Total: Dose planned: 4,256 cGy Elapsed Course Treatment Days: 2 RESCAN TANGS Most recent treatment: Dose planned: 266 cGy (fraction 6 on 01/21/2019) Total: Dose planned: 3,458 cGy Elapsed Course Treatment Days: 16 RESCAN_BST Most recent treatment: Dose planned: 200 cGy (fraction 2 on 01/15/2019) Total: Dose planned: 1,000 cGy Elapsed Course Treatment Days: 8 Radiation Treatments No historical radiation treatments to show. SUBJECTIVE: Doing well, no pain or complaints. EXAM: Wt 106.6 kg (235 lb 1.6 oz) BMI 34.72 kg/m?? Pain Score and Location 01/21/19 1341 PainSc: 0-No pain Radiation Dermatitis: 1 - Faint erythema or dry desquamation Fatigue: 0 - None Dysphagia: 0 - None ASSESSMENT Experiencing anticipated side effects PLANS Continue with treatment RAD ONC PAIN PLAN: The patient is not currently having any pain that requires changes in pain management. Ct skin care Lela Hardy M.D., Ph.D. Program Officer Department of Radiation Oncology documented in this encounter Plan of Treatment Not on file documented as of this encounter Visit Diagnoses Diagnosis Malignant neoplasm of upper-inner quadrant of left breast in female, estrogen receptor negative (HCC)- Primary documented in this encounter Care Teams Multifocal Lens Assembler Relationship Specialty Start Date End Date Ravi Smith MD PCP - General 11/04/17 09/27/21 Aft, Kianna Machado MD PhD [address] [place] [address] Surgeon Surgical Oncology 11/22/17 Santiago Gilbert MD [address] [place] [address] Sliver Handler Gastroenterology 11/22/17 Dmitry Sanderson MD [address] [place], [place] [address] Referring Physician Colon and Rectal Surgery 12/03/1805/06 Abbi Ventura MD [address] [facility] [address] [place] [address] Medical Oncologist/Scale Operator Medical Oncology 12/03/18 Montse Thompson MD [address] [facility] [address] [place], [place] [id number] Consulting Physician Gynecologic Oncology 12/03/18 Lela Hardy MD PhD [address] [facility] [address] [place] [address] Radiation Oncologist Radiation Oncology 12/23/18 Aft, Kianna Machado MD PhD [address] [facility] [address] [place], [place] [address] Surgeon Surgical Oncology 12/23/18 09/17/21 documented as of this encounter
--- OUTSIDE RECORDS SUMMARY | 2024-04-24 13:45 | XMS_ITS | Encounter Summary ---
Author Organization [facility] Healthcare Address [address] [place] [address] Care Team Providers Care Data Entry Processor Name Role Phone Ravi Smith MD Primary Care Provider [phone] Aft, Kianna Machado MD PhD Unavailable [phone] Santiago Gilbert MD Unavailable [phone] Dmitry Sanderson MD Unavailable [phone] Abbi Ventura MD Unavailable Montse Thompson MD Unavailable [phone] Lela Hardy MD PhD Unavailable [phone] Aft, Kianna Machado MD PhD Unavailable [phone] Encounter Details Date Type Department Care Team (Late st Contact Info) Description 01/15/2019 Orders Only RAD ONC TREATMENTS Miscellaneous, Not [...] on file 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 Gender Identity Not on file Sexual Orientation Not on file documented as of this encounter Plan of Treatment Not on file documented as of this encounter Procedures Procedure Name Priority Date/Time Associated Diagnosis Comments RAD ONC ARIA SESSION SUMMARY 01/15/2019 2:37 PM CDT documented in this encounter Results * RAD ONC ARIA SESSION SUMMARY (01/15/2019 2:37 PM CDT) Course Name C1 L BRS [place] 2018 ARIA Course Plan Date 12/26/2018 4:45 PM ARIA Elapsed Days 8 ARIA Treatment Start Date 01/07/2019 ARIA Treatment Site BST DPV ARIA Dose Given To Date (cGy) 400 ARIA Session Dosage Given (cGy) 200 ARIA Plan ID RESCAN_BST ARIA Fractions Treated 2 ARIA Prescribed Dose Per Fraction (cGy) 200 ARIA Prescribed Total Dose (cGy) 1,000 ARIA 01/15/2019 2:37 PM CDT us Not In File Miscellaneous RADIATION ONCOLOGY ORD ERABLES Final Result ARIA documented in this encounter Visit Diagnoses Not on filedocumented in this encounter Care Teams Data Entry Processor Relationship Specialty Start Date End Date Ravi Smith MD PCP - General 11/04/17 09/27/21 Aft, Kianna Machado MD PhD [address] [place] [address] Surgeon Surgical Oncology 11/22/17 Santiago Gilbert MD [address] [place] [address] Jewel Sawyer Gastroenterology 11/22/17 Dmitry Sanderson MD [address] [place] [address] Referring Physician Colon and Rectal Surgery 12/03/1805/06 Abbi Ventura MD [address] [facility] [address] [place], [place] [id number] Medical Oncologist/Director Digital Medical Oncology 12/03/18 Montse Thompson MD [address] [facility] [address] [place], [place] [id number] Consulting Physician Gynecologic Oncology 12/03/18 Lela Hardy MD PhD [address] [place] [address] [address] [place] [address] Radiation Oncologist Radiation Oncology 12/23/18 Aft, Kianna Machado MD PhD [address] [facility] [address] [place], [place] [id number] Surgeon Surgical Oncology 12/23/18 09/17/21 documented as of this encounter
--- OUTSIDE RECORDS SUMMARY | 2024-04-24 13:45 | XMS_ITS | Encounter Summary ---
Author Organization [facility] Healthcare Address [address] [place] [address] Care Team Providers Care Polisher Balance Screwhead Name Role Phone Ravi Smith MD Primary Care Provider [phone] Aft, Kianna Machado MD PhD Unavailable Santiago Gilbert MD Unavailable [phone] Dmitry Sanderson MD Unavailable [phone] Abbi Ventura MD Unavailable Montse Thompson MD Unavailable [phone] Lela Hardy MD PhD Unavailable [phone] Aft, Kianna Machado MD PhD Unavailable [phone] Encounter Details Date Type Department Care Team (Late st Contact Info) Description 01/29/2019 1:00 PM CDT Treatment [facility] Radiation Oncology at [facility] [address] [place] [address] Social History Tobacco Use Types Packs/Day Years [...] on file 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 Gender Identity Not on file Sexual Orientation Not on file documented as of this encounter Plan of Treatment Not on file documented as of this encounter Visit Diagnoses Not on filedocumented in this encounter Care Teams Polisher Balance Screwhead Relationship Specialty Start Date End Date Ravi Smith MD PCP - General 11/04/17 09/27/21 AfKianna simspon MD PhD [address] [place] [address] Surgeon Surgical Oncology 11/22/17 Santiago Gilbert MD [address] [place] [address] Sound Editor Gastroenterology 11/22/17 Dmitry Sanderson MD [address] [place] [address] Referring Physician Colon and Rectal Surgery 12/03/1805/06 Abbi Ventura MD [address] [place] [address] [address] [place] [address] Medical Oncologist/Concrete Crusher Loader Operator Medical Oncology 12/03/18 Montse Thompson MD [address] [facility] [address] [place], [place] [address] Consulting Physician Gynecologic Oncology 12/03/18 Lela Hardy MD PhD [address] [place] [address] [address] [place] [address] Radiation Oncologist Radiation Oncology 12/23/18 Kianna Bunch MD PhD [address] [facility] [address] [place] [address] Surgeon Surgical Oncology 12/23/18 09/17/21 documented as of this encounter
--- OUTSIDE RECORDS SUMMARY | 2024-04-24 13:45 | XMS_ITS | Encounter Summary ---
Author Organization [facility] Healthcare Address [address] [place] [address] Care Team Providers Care 3D Artist Name Role Phone Ravi Smith MD Primary Care Provider [phone] Aft, Kianna Machado MD PhD Unavailable [phone] Santiago Gilbert MD Unavailable [phone] Dmitry Sanderson MD Unavailable [phone] Abbi Ventura MD Unavailable Montse Thompson MD Unavailable [phone] Lela Hardy MD PhD Unavailable Aft, Kianna Machado MD PhD Unavailable [phone] Encounter Details Date Type Department Care Team (Late st Contact Info) Description 01/27/2019 Orders Only RAD ONC TREATMENTS Miscellaneous, Not [...] 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 Gender Identity Not on file Sexual Orientation Not on file documented as of this encounter Plan of Treatment Not on file documented as of this encounter Procedures Procedure Name Priority Date/Time Associated Diagnosis Comments RAD ONC ARIA SESSION SUMMARY 01/27/2019 1:17 PM CDT documented in this encounter Results * RAD ONC ARIA SESSION SUMMARY (01/27/2019 1:17 PM CDT) Course Name C1 L BRS [place] 2018 ARIA Course Plan Date 12/26/2018 4:45 PM ARIA Elapsed Days 20 ARIA Treatment Start Date 01/07/2019 ARIA Treatment Site [facility] DPV ARIA Dose Given To Date (cGy) 3,458 ARIA Session Dosage Given (cGy) 266 ARIA Plan ID RESCAN TANGS ARIA Fractions Treated 10 ARIA Prescribed Dose Per Fraction (cGy) 266 ARIA Prescribed Total Dose (cGy) 3,458 ARIA 01/27/2019 1:17 PM CDT us Not In File Miscellaneous RADIATION ONCOLOGY ORD ERABLES Final Result ARIA documented in this encounter Visit Diagnoses Not on filedocumented in this encounter Care Teams 3D Artist Relationship Specialty Start Date End Date Ravi Smith MD PCP - General 11/04/17 09/27/21 Aft, Kianna Machado MD PhD [address] [place] [address] Surgeon Surgical Oncology 11/22/17 Santiago Gilbert MD [address] [place] [address] Electric Brain Wave Equipment Mechanic Gastroenterology 11/22/17 Dmitry Sanderson MD [address] [place] [address] Referring Physician Colon and Rectal Surgery 12/03/1805/06 Abbi Ventura MD [address] [facility] [address] [place], [place] [id number] Medical Oncologist/Hang Gliding Instructor Medical Oncology 12/03/18 Montse Thompson MD [address] [facility] [address] [place], [place] [id number] Consulting Physician Gynecologic Oncology 12/03/18 Lela Hardy MD PhD [address] [place] [address] [address] [place], [place] [id number] Radiation Oncologist Radiation Oncology 12/23/18 Aft, Kianna Machado MD PhD [address] [place] [address] [address] [place], [place] [address] Surgeon Surgical Oncology 12/23/18 09/17/21 documented as of this encounter
--- OUTSIDE RECORDS SUMMARY | 2024-04-24 13:45 | XMS_ITS | Encounter Summary ---
Author Organization [facility] Healthcare Address [address] [place] [address] Care Team Providers Care Telephone Assembler Name Role Phone Ravi Smith MD Primary Care Provider [phone] Aft, Kianna Machado MD PhD Unavailable [phone] Santiago Gilbert MD Unavailable [phone] Dmitry Sanderson MD Unavailable [phone] Abbi Ventura MD Unavailable Montse Thompson MD Unavailable [phone] Lela Hardy MD PhD Unavailable [phone] Aft, Kianna Machado MD PhD Unavailable [phone] Encounter Details Date Type Department Care Team (Late st Contact Info) Description 01/15/2019 2:15 PM CDT Treatment [facility] Radiation Oncology at [facility] [address] [place] [address] Social History Tobacco Use Types Packs/Day Years [...] on file 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 Gender Identity Not on file Sexual Orientation Not on file documented as of this encounter Plan of Treatment Not on file documented as of this encounter Visit Diagnoses Not on filedocumented in this encounter Care Teams Telephone Assembler Relationship Specialty Start Date End Date Ravi Smith MD PCP - General 11/04/17 09/27/21 AfKianna simpson MD PhD [address] [place] [address] Surgeon Surgical Oncology 11/22/17 Santiago Gilbert MD [address] [place] [address] Physiotherapy Aide Gastroenterology 11/22/17 Dmitry Sanderson MD [address] [place] [address] Referring Physician Colon and Rectal Surgery 12/03/1805/06 Abbi Ventura MD [address] [place] [address] [address] [place] [address] Medical Oncologist/Sexual Assault Counselor Medical Oncology 12/03/18 Montse Thompson MD [address] [facility] [address] [place], [place] [id number] Consulting Physician Gynecologic Oncology 12/03/18 Lela Hardy MD PhD [address] [place] [address] [address] [place] [address] Radiation Oncologist Radiation Oncology 12/23/18 Kianna Bunch MD PhD [address] [facility] [address] [place] [address] Surgeon Surgical Oncology 12/23/18 09/17/21 documented as of this encounter
--- OUTSIDE RECORDS SUMMARY | 2024-04-24 13:45 | XMS_ITS | Encounter Summary ---
Author Organization [facility] Healthcare Address [address] [place] [address] Care Team Providers Care Collateral Clerk Name Role Phone Ravi Smith MD Primary Care Provider [phone] Aft, Kianna Machado MD PhD Unavailable [phone] Santiago Gilbert MD Unavailable [phone] Dmitry Sanderson MD Unavailable [phone] Abbi Ventura MD Unavailable Montse Thompson MD Unavailable [phone] Lela Hardy MD PhD Unavailable [phone] Aft, Kianna Machado MD PhD Unavailable [phone] Encounter Details Date Type Department Care Team (Late st Contact Info) Description 01/29/2019 Orders Only RAD ONC TREATMENTS Miscellaneous, Not [...] on file 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 Gender Identity Not on file Sexual Orientation Not on file documented as of this encounter Plan of Treatment Not on file documented as of this encounter Procedures Procedure Name Priority Date/Time Associated Diagnosis Comments RAD ONC ARIA SESSION SUMMARY 01/29/2019 1:11 PM CDT documented in this encounter Results * RAD ONC ARIA SESSION SUMMARY (01/29/2019 1:11 PM CDT) Course Name C1 L BRS [place] 2018 ARIA Course Plan Date 12/26/2018 4:45 PM ARIA Elapsed Days 22 ARIA Treatment Start Date 01/07/2019 ARIA Treatment Site [place] DPV ARIA Dose Given To Date (cGy) 3,990 ARIA Session Dosage Given (cGy) 266 ARIA Plan ID RESCAN TANGS ARIA Fractions Treated 12 ARIA Prescribed Dose Per Fraction (cGy) 266 ARIA Prescribed Total Dose (cGy) 3,458 ARIA 01/29/2019 1:11 PM CDT us Not In File Miscellaneous RADIATION ONCOLOGY ORD ERABLES Final Result ARIA documented in this encounter Visit Diagnoses Not on filedocumented in this encounter Care Teams Collateral Clerk Relationship Specialty Start Date End Date Ravi Smith MD PCP - General 11/04/17 09/27/21 Aft, Kianna Machado MD PhD [address] [place] [address] Surgeon Surgical Oncology 11/22/17 Santiago Gilbert MD [address] [place] [address] Wood Scaler Gastroenterology 11/22/17 Dmitry Sanderson MD [address] [place] [address] Referring Physician Colon and Rectal Surgery 12/03/1805/06 Abbi Ventura MD [address] [place] [address] [address] [place], [place] [id number] Medical Oncologist/Rehabilitation Aide/Scheduler Medical Oncology 12/03/18 Montse Thompson MD [address] [facility] [address] [place], [place] [address] Consulting Physician Gynecologic Oncology 12/03/18 Lela Hardy MD PhD [address] [place] [address] [address] [place], [place] [id number] Radiation Oncologist Radiation Oncology 12/23/18 Aft, Kianna Machado MD PhD [address] [place] [address] [address] [place], [place] [address] Surgeon Surgical Oncology 12/23/18 09/17/21 documented as of this encounter
--- OUTSIDE RECORDS SUMMARY | 2024-04-24 13:45 | XMS_ITS | Encounter Summary ---
Author Organization [facility] Healthcare Address [address] [place] [address] Care Team Providers Care Lease Administrator Name Role Phone Ravi Smith MD Primary Care Provider [phone] Aft, Kianna Machado MD PhD Unavailable [phone] Santiago Gilbert MD Unavailable [phone] Dmitry Sanderson MD Unavailable [phone] Abbi Ventuar MD Unavailable Montse Thompson MD Unavailable Lela Hardy MD PhD Unavailable Aft, Kianna Machado MD PhD Unavailable Reason for Visit * Reason Comments OTV Encounter Details Date Type Department Care Team (Late st Contact Info) Description 01/28/2019 OTV [facility] Radiation Oncology at 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 Gender Identity Not on file Sexual Orientation Not on file documented as of this encounter Last Filed Vital Signs Vital Sign Reading Time Taken Comments Blood Pressure - - Pulse - - Temperature - - Respiratory Rate - - Oxygen Saturation - - Inhaled Oxygen Concentration - - Weight 107.6 kg (237 lb 4.8 oz) 01/28/2019 1:29 PM CDT Height - - Body Mass Index 35.04 12/25/2018 9:12 AM CDT documented in this encounter Progress Notes * Alverto Baker MD PhD - 01/28/2019 1:29 PM CDT Staff Physician: Lela Hardy MD PhD Referring Physician: Patient Care Team: Dmitry Sanderson MD as Referring Physician (Colon and Rectal Surgery) Kianna Bunch MD PhD as Referring Physician (Surgical Oncology) Date of Service: 01/28/2019 RADIATION ONCOLOGY ON TREATMENT VISIT (OTV) NOTE Diagnosis: Cancer Staging Malignant neoplasm of upper-inner quadrant of left breast in female, 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) Staging form: Breast, AJCC 8th Edition - Pathologic: Stage IIA (pT2, pN0(sn), cM0, G3, ER-, MN-, HER2-) - Signed by Roger Dorsey MD on 12/23/2018 - Clinical: Stage IIB (cT2, cN0, cM0, G3, ER-, MN-, HER2-) - Signed by Lela Hardy MD [...] the prone position. TREATMENT: She has received 14/16 fractions whole breast, and 2/5 fractions of the boost. Staggered boost / whole breast start 2/2 setup difficulty. SUBJECTIVE: States that she is doing overall well with exception of continued fatigue. She states it is hard toget up from bed in the morning, but she can complete her ADLs without difficulty. She continues to endorse nipple soreness and tenderness, stable from last visit. She has had worsening joint pain over the last week. The spots of worst pain are in the right shoulder, low back, right hip. Shoulder pain is worsened by motion, it is focally tender, she denies changes in sensation, upper extremity weakness, decreased range of motion. Lower back and right hip pain are also focally tender, worsened with activity, Without radiation, without changes in sensation, lower extremity strength, bowel/bladder function. She states that she is planned for an MRI pelvis to be completed on February 06. She denies any masses or changes in her breast or chest wall, headaches, vision changes, gait instability, cough, shortness of breath, nausea, abdominal pain. EXAM: Wt 107.6 kg (237 lb 4.8 oz) BMI 35.04 kg/m?? Pain Score and Location 01/28/19 1329 PainSc: 0-No pain General: NAD Pulm: Normal work of breathing Neuro: AOx4, gait WNL, speech clear. Sensation intact and symmetric bilaterally in the lower and upper Extremities. MSK: Right shoulder range of motion full, focal tenderness along the scapular spine with palpation.Focal midline tenderness in lumbar spine at level L4-L5. Focal point tenderness of right iliac crest. Hyperpigmentation: absent Breast or Chest Wall:1 - Faint erythema or dry desquamation Axilla:0 - None Inframammary Sulcus: 0 - None Fatigue: 1 - Fatigue relieved by rest ASSESSMENT Experiencing anticipated side effects PLANS Continue with treatment RAD ONC PAIN PLAN: The patient is not currently having any pain that requires changes in pain management. Recommended continued skin care Follow-up on MRI pelvis Will re-evaluate at next on treatment visit to determine if additional imaging is needed Alverto Baker MD, PhD Radiation Oncology, PGY2 01/28/2019 5:45 PM Cosigned by Lela Hardy MD PhD at 01/30/2019 2:16 PM CDT Associated attestation - Lela Hardy MD PhD - 01/30/2019 2:16 PM CDT I have seen and examined this patient today. I discussed the case with the resident and agree with the findings and plan as documented in the resident's note. On exam she does have tenderness to palpation over a broad area of the right shoulder and back, but remainder of exam is normal, no neuro signs. MRI is scheduled. Discussed if she has worsening or new symptoms, to present to medical attention for evaluation. documented in this encounter Plan of Treatment Not on file documented as of this encounter Visit Diagnoses Diagnosis Malignant neoplasm of upper-inner quadrant of left breast in female, estrogen receptor negative (HCC)- Primary documented in this encounter Care Teams Lease Administrator Relationship Specialty Start Date End Date Ravi Smith MD PCP - General 11/04/17 09/27/21 Aft, Kianna Machado MD PhD [address] [place] [address] Surgeon Surgical Oncology 11/22/17 Santiago Gilbert MD [address] [place] [address] Nuclear Reactor Operator Gastroenterology 11/22/17 Dmitry Sanderson MD [address] [place] [address] Referring Physician Colon and Rectal Surgery 12/03/1805/06 Abbi Ventura MD [address] [place] [address] [address] [place] [address] Medical Oncologist/Yard Switch Operator Medical Oncology 12/03/18 Montse Thompson MD [address] [place] [address] [address] [place] [address] Consulting Physician Gynecologic Oncology 12/03/18 Lela Hardy MD PhD [address] [place] [place] [address] [address] [place] [address] Radiation Oncologist Radiation Oncology 12/23/18 Aft, Kianna Machado MD PhD [address] [place] [address] [address] [place] [address] Surgeon Surgical Oncology 12/23/18 09/17/21 documented as of this encounter
--- OUTSIDE RECORDS SUMMARY | 2024-04-24 13:45 | XMS_ITS | Encounter Summary ---
Author Organization [facility] Healthcare Address [address] [place] [address] Care Team Providers Care Ict Quality Assurance Engineer Name Role Phone Ravi Smith MD Primary Care Provider [phone] Aft, Kianna Machado MD PhD Unavailable Santiago Gilbert MD Unavailable [phone] Dmitry Sanderson MD Unavailable [phone] Abbi Ventura MD Unavailable Montse Thompson MD Unavailable [phone] Lela Hardy MD PhD Unavailable [phone] Aft, Kianna Machado MD PhD Unavailable [phone] Encounter Details Date Type Department Care Team (Late st Contact Info) Description 01/28/2019 1:00 PM CDT Treatment [facility] Radiation Oncology at [facility] [address] [place] [address] Social History Tobacco Use Types Packs/Day Years [...] on file 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 Gender Identity Not on file Sexual Orientation Not on file documented as of this encounter Plan of Treatment Not on file documented as of this encounter Visit Diagnoses Not on filedocumented in this encounter Care Teams Ict Quality Assurance Engineer Relationship Specialty Start Date End Date Ravi Smith MD PCP - General 11/04/17 09/27/21 AfKianna simpson MD PhD [address] [place] [address] Surgeon Surgical Oncology 11/22/17 Santiago Gilbert MD [address] [place] [address] Air Traffic Controller Center Gastroenterology 11/22/17 Dmitry Sanderson MD [address] [place] [address] Referring Physician Colon and Rectal Surgery 12/03/1805/06 Abbi Ventura MD [address] [place] [address] [address] [place] [address] Medical Oncologist/Traveling Repair Accountant Medical Oncology 12/03/18 Montse Thompson MD [address] [facility] [address] [place], [place] [id number] Consulting Physician Gynecologic Oncology 12/03/18 Lela Hardy MD PhD [address] [place] [address] [address] [place] [address] Radiation Oncologist Radiation Oncology 12/23/18 Kianna Bunch MD PhD [address] [facility] [address] [place] [address] Surgeon Surgical Oncology 12/23/18 09/17/21 documented as of this encounter
--- OUTSIDE RECORDS SUMMARY | 2024-04-24 13:45 | XMS_ITS | Encounter Summary ---
Author Organization [facility] Healthcare Address [address] [place] [address] Care Team Providers Care Train Station Agent Name Role Phone Ravi Smith MD Primary Care Provider [phone] Aft, Kianna Machado MD PhD Unavailable [phone] Santiago Gilbert MD Unavailable [phone] Dmitry Sanderson MD Unavailable [phone] Abbi Ventura MD Unavailable Montse Thompson MD Unavailable [phone] Lela Hardy MD PhD Unavailable [phone] Aft, Kianna Machado MD PhD Unavailable [phone] Encounter Details Date Type Department Care Team (Late st Contact Info) Description 01/14/2019 2:15 PM CDT Treatment [facility] Radiation Oncology at [facility] [address] [place] [address] Malignant neoplasm of upper-inner quadrant of left [...] file 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 15 tablet 01/14/2019 9 documented in this encounter Plan of Treatment Not on file documented as of this encounter Visit Diagnoses Diagnosis Malignant neoplasm of upper-inner quadrant of left breast in female, estrogen receptor negative (HCC)- Primary documented in this encounter Care Teams Train Station Agent Relationship Specialty Start Date End Date Ravi Smith MD PCP - General 11/04/17 09/27/21 Aft, Kianna Machado MD PhD [address] [place] [address] Surgeon Surgical Oncology 11/22/17 Santiago Gilbert MD [address] [place] [address] Train Braker Gastroenterology 11/22/17 Dmitry Sanderson MD [address] [place] [address] Referring Physician Colon and Rectal Surgery 12/03/1805/06 Abbi Ventura MD [address] [place] [address] [address] [place] [address] Medical Oncologist/Dental Scheduling Coordinator Medical Oncology 12/03/18 Montse Thompson MD [address] [facility] [address] [place], [place] [id number] Consulting Physician Gynecologic Oncology 12/03/18 Lela Hardy MD PhD [address] [facility] [address] [place], [place] [id number] Radiation Oncologist Radiation Oncology 12/23/18 Aft, Kianna Machado MD PhD [address] [facility] [address] [place], [place] [id number] Surgeon Surgical Oncology 12/23/18 09/17/21 documented as of this encounter
--- OUTSIDE RECORDS SUMMARY | 2024-04-24 13:45 | XMS_ITS | Encounter Summary ---
Author Organization [facility] Healthcare Address [address] [place] [address] Care Team Providers Care Tool And Die Repairer Name Role Phone Ravi Smith MD Primary Care Provider [phone] Aft, Kianna Machado MD PhD Unavailable Santiago Gilbert MD Unavailable [phone] Dmitry Sanderson MD Unavailable [phone] Abbi Ventura MD Unavailable Montse Thompson MD Unavailable Lela Hardy MD PhD Unavailable [phone] Aft, Kianna Machado MD PhD Unavailable [phone] Encounter Details Date Type Department Care Team (Late st Contact Info) Description 01/20/2019 Orders Only RAD ONC TREATMENTS Miscellaneous, Not [...] file Legal Sex Female 1:06 AM CAREER AGENT Gender Identity Not on file Sexual Orientation Not on file documented as of this encounter Plan of Treatment Not on file documented as of this encounter Procedures Procedure Name Priority Date/Time Associated Diagnosis Comments RAD ONC ARIA SESSION SUMMARY 01/20/2019 1:22 PM CDT documented in this encounter Results * RAD ONC ARIA SESSION SUMMARY (01/20/2019 1:22 PM CDT) Course Name C1 L BRS [place] 2018 ARIA Course Plan Date 12/26/2018 4:45 PM ARIA Elapsed Days 13 ARIA Treatment Start Date 01/07/2019 ARIA Treatment Site [facility] DPV ARIA Dose Given To Date (cGy) 2,128 ARIA Session Dosage Given (cGy) 266 ARIA Plan ID RESCAN TANGS ARIA Fractions Treated 5 ARIA Prescribed Dose Per Fraction (cGy) 266 ARIA Prescribed Total Dose (cGy) 3,458 ARIA 01/20/2019 1:22 PM CDT us Not In File Miscellaneous RADIATION ONCOLOGY ORD ERABLES Final Result ARIA documented in this encounter Visit Diagnoses Not on filedocumented in this encounter Care Teams Tool And Die Repairer Relationship Specialty Start Date End Date Ravi Smith MD PCP - General 11/04/17 09/27/21 Aft, Kianna Machado MD PhD [address] [place] [address] Surgeon Surgical Oncology 11/22/17 Santiago Gilbert MD [address] [place] [address] Blindmaker Gastroenterology 11/22/17 Dmitry Sanderson MD [address] [place] [address] Referring Physician Colon and Rectal Surgery 12/03/1805/06 Abbi Ventura MD [address] [facility] [address] [place], [place] [id number] Medical Oncologist/Automobile Service Station Mechanic Medical Oncology 12/03/18 Montse Thompson MD [address] [facility] [address] [place], [place] [id number] Consulting Physician Gynecologic Oncology 12/03/18 Lela Hardy MD PhD [address] [place] [address] [address] [place], [place] [id number] Radiation Oncologist Radiation Oncology 12/23/18 Aft, Kianna Machado MD PhD [address] [place] [address] [address] [place], [place] [id number] Surgeon Surgical Oncology 12/23/18 09/17/21 documented as of this encounter
--- OUTSIDE RECORDS SUMMARY | 2024-04-24 13:45 | XMS_ITS | Encounter Summary ---
Author Organization [facility] Healthcare Address [address] [place] [address] Care Team Providers Care Software Packaging Engineer Name Role Phone Ravi Smith MD Primary Care Provider [phone] Aft, Kianna Machado MD PhD Unavailable [phone] Santiago Gilbert MD Unavailable [phone] Dmitry Sanderson MD Unavailable [phone] Abbi Ventura MD Unavailable Montse Thompson MD Unavailable [phone] Lela Hardy MD PhD Unavailable [phone] Aft, Kianna Machado MD PhD Unavailable [phone] Encounter Details Date Type Department Care Team (Late st Contact Info) Description 02/03/2019 1:00 PM CDT Treatment [facility] Radiation Oncology at [facility] [address] [place] [address] Social History Tobacco Use Types Packs/Day Years [...] on file 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 Gender Identity Not on file Sexual Orientation Not on file documented as of this encounter Plan of Treatment Not on file documented as of this encounter Visit Diagnoses Not on filedocumented in this encounter Care Teams Software Packaging Engineer Relationship Specialty Start Date End Date Ravi Smith MD PCP - General 11/04/17 09/27/21 AfKianna simpson MD PhD [address] [place] [address] Surgeon Surgical Oncology 11/22/17 Santiago Gilbert MD [address] [place] [address] Plant Health Care Technician Gastroenterology 11/22/17 Dmitry Sanderson MD [address] [place] [address] Referring Physician Colon and Rectal Surgery 12/03/1805/06 Abbi Ventura MD [address] [place] [address] [address] [place] [address] Medical Oncologist/Personal Protection Specialist Medical Oncology 12/03/18 Montse Thompson MD [address] [facility] [address] [place], [place] [id number] Consulting Physician Gynecologic Oncology 12/03/18 Lela Hardy MD PhD [address] [place] [address] [address] [place] [address] Radiation Oncologist Radiation Oncology 12/23/18 Kianna Bunch MD PhD [address] [facility] [address] [place] [address] Surgeon Surgical Oncology 12/23/18 09/17/21 documented as of this encounter
--- OUTSIDE RECORDS SUMMARY | 2024-04-24 13:45 | XMS_ITS | Encounter Summary ---
Author Organization [facility] Healthcare Address [address] [place] [address] Care Team Providers Care Rug Hooker Name Role Phone Ravi Smith MD Primary Care Provider [phone] Aft, Kianna Machado MD PhD Unavailable [phone] Santiago Gilbert MD Unavailable [phone] Dmitry Sanderson MD Unavailable [phone] Abbi Ventura MD Unavailable Montse Thompson MD Unavailable [phone] Lela Hardy MD PhD Unavailable [phone] Aft, Kianna Machado MD PhD Unavailable [phone] Encounter Details Date Type Department Care Team (Late st Contact Info) Description 01/21/2019 Orders Only RAD ONC TREATMENTS Miscellaneous, Not [...] on file 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 Gender Identity Not on file Sexual Orientation Not on file documented as of this encounter Plan of Treatment Not on file documented as of this encounter Procedures Procedure Name Priority Date/Time Associated Diagnosis Comments RAD ONC ARIA SESSION SUMMARY 01/21/2019 1:29 PM CDT documented in this encounter Results * RAD ONC ARIA SESSION SUMMARY (01/21/2019 1:29 PM CDT) Course Name C1 L BRS [place] 2018 ARIA Course Plan Date 12/26/2018 4:45 PM ARIA Elapsed Days 14 ARIA Treatment Start Date 01/07/2019 ARIA Treatment Site [facility] DPV ARIA Dose Given To Date (cGy) 2,394 ARIA Session Dosage Given (cGy) 266 ARIA Plan ID RESCAN TANGS ARIA Fractions Treated 6 ARIA Prescribed Dose Per Fraction (cGy) 266 ARIA Prescribed Total Dose (cGy) 3,458 ARIA 01/21/2019 1:29 PM CDT us Not In File Miscellaneous RADIATION ONCOLOGY ORD ERABLES Final Result ARIA documented in this encounter Visit Diagnoses Not on filedocumented in this encounter Care Teams Rug Hooker Relationship Specialty Start Date End Date Ravi Smith MD PCP - General 11/04/17 09/27/21 Aft, Kianna Machado MD PhD [address] [place] [address] Surgeon Surgical Oncology 11/22/17 Santiago Gilbert MD [address] [place] [address] Insurance Consultant Gastroenterology 11/22/17 Dmitry Sanderson MD [address] [place] [address] Referring Physician Colon and Rectal Surgery 12/03/1805/06 Abbi Ventura MD [address] [facility] [address] [place], [place] [id number] Medical Oncologist/Area Representative Medical Oncology 12/03/18 Montse Thompson MD [address] [facility] [address] [place], [place] [id number] Consulting Physician Gynecologic Oncology 12/03/18 Lela Hardy MD PhD [address] [place] [address] [address] [place], [place] [id number] Radiation Oncologist Radiation Oncology 12/23/18 Aft, Kianna Machado MD PhD [address] [place] [address] [address] [place], [place] [id number] Surgeon Surgical Oncology 12/23/18 09/17/21 documented as of this encounter
--- OUTSIDE RECORDS SUMMARY | 2024-04-24 13:45 | XMS_ITS | Encounter Summary ---
Author Organization [facility] Healthcare Address [address] [place] [address] Care Team Providers Care Manager Financial Services Name Role Phone Ravi Smith MD Primary Care Provider [phone] Aft, Kianna Machado MD PhD Unavailable [phone] Santiago Gilbert MD Unavailable [phone] Dmitry Sanderson MD Unavailable [phone] Abbi Ventura MD Unavailable Montse Thompson MD Unavailable [phone] Lela Hardy MD PhD Unavailable [phone] Aft, Kianna Machado MD PhD Unavailable [phone] Encounter Details Date Type Department Care Team (Late st Contact Info) Description 01/28/2019 Orders Only RAD ONC TREATMENTS Miscellaneous, Not [...] file Legal Sex Female 1:06 AM REGULATORY COMPLIANCE 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 Gender Identity Not on file Sexual Orientation Not on file documented as of this encounter Plan of Treatment Not on file documented as of this encounter Procedures Procedure Name Priority Date/Time Associated Diagnosis Comments RAD ONC ARIA SESSION SUMMARY 01/28/2019 1:18 PM CDT documented in this encounter Results * RAD ONC ARIA SESSION SUMMARY (01/28/2019 1:18 PM CDT) Course Name C1 L BRS [place] 2018 ARIA Course Plan Date 12/26/2018 4:45 PM ARIA Elapsed Days 21 ARIA Treatment Start Date 01/07/2019 ARIA Treatment Site [facility] DPV ARIA Dose Given To Date (cGy) 3,724 ARIA Session Dosage Given (cGy) 266 ARIA Plan ID RESCAN TANGS ARIA Fractions Treated 11 ARIA Prescribed Dose Per Fraction (cGy) 266 ARIA Prescribed Total Dose (cGy) 3,458 ARIA 01/28/2019 1:18 PM CDT us Not In File Miscellaneous RADIATION ONCOLOGY ORD ERABLES Final Result ARIA documented in this encounter Visit Diagnoses Not on filedocumented in this encounter Care Teams Manager Financial Services Relationship Specialty Start Date End Date Ravi Smith MD PCP - General 11/04/17 09/27/21 Aft, Kianna Machado MD PhD [address] [place] [address] Surgeon Surgical Oncology 11/22/17 Santiago Gilbert MD [address] [place] [address] Center Mgr Gastroenterology 11/22/17 Dmitry Sanderson MD [address] [place] [address] Referring Physician Colon and Rectal Surgery 12/03/1805/06 Abbi Ventura MD [address] [place] [address] [address] [place], [place] [id number] Medical Oncologist/Folding Rules Printing Machine Operator Medical Oncology 12/03/18 Montse Thompson MD [address] [facility] [address] [place], [place] [id number] Consulting Physician Gynecologic Oncology 12/03/18 Lela Hardy MD PhD [address] [place] [address] [address] [place], [place] [id number] Radiation Oncologist Radiation Oncology 12/23/18 Aft, Kianna Machado MD PhD [address] [place] [address] [address] [place], [place] [id number] Surgeon Surgical Oncology 12/23/18 09/17/21 documented as of this encounter
--- OUTSIDE RECORDS SUMMARY | 2024-04-24 13:45 | XMS_ITS | Encounter Summary ---
Author Organization [facility] Healthcare Address [address] [place] [address] Care Team Providers Care Artificial Stone Applicator Name Role Phone Ravi Smith MD Primary Care Provider [phone] Aft, Kianna Machado MD PhD Unavailable [phone] Santiago Gilbert MD Unavailable [phone] Dmitry Sanderson MD Unavailable [phone] Abbi Ventura MD Unavailable Montse Thompson MD Unavailable [phone] Lela Hardy MD PhD Unavailable [phone] Aft, Kianna Machado MD PhD Unavailable [phone] Encounter Details Date Type Department Care Team (Late st Contact Info) Description 01/19/2019 Orders Only RAD ONC TREATMENTS Miscellaneous, Not [...] on file 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 Gender Identity Not on file Sexual Orientation Not on file documented as of this encounter Plan of Treatment Not on file documented as of this encounter Procedures Procedure Name Priority Date/Time Associated Diagnosis Comments RAD ONC ARIA SESSION SUMMARY 01/19/2019 1:53 PM CDT documented in this encounter Results * RAD ONC ARIA SESSION SUMMARY (01/19/2019 1:53 PM CDT) Course Name C1 L BRS [place] 2018 ARIA Course Plan Date 12/26/2018 4:45 PM ARIA Elapsed Days 12 ARIA Treatment Start Date 01/07/2019 ARIA Treatment Site [facility] DPV ARIA Dose Given To Date (cGy) 1,862 ARIA Session Dosage Given (cGy) 266 ARIA Plan ID RESCAN TANGS ARIA Fractions Treated 4 ARIA Prescribed Dose Per Fraction (cGy) 266 ARIA Prescribed Total Dose (cGy) 3,458 ARIA 01/19/2019 1:53 PM CDT us Not In File Miscellaneous RADIATION ONCOLOGY ORD ERABLES Final Result ARIA documented in this encounter Visit Diagnoses Not on filedocumented in this encounter Care Teams Artificial Stone Applicator Relationship Specialty Start Date End Date Ravi Smith MD PCP - General 11/04/17 09/27/21 Aft, Kianna Machado MD PhD [address] [place] [address] Surgeon Surgical Oncology 11/22/17 Santiago Gilbert MD [address] [place] [address] Counseling Program Leader Gastroenterology 11/22/17 Dmitry Sanderson MD [address] [place] [address] Referring Physician Colon and Rectal Surgery 12/03/1805/06 Abbi Ventura MD [address] [place] [address] [address] [place], [place] [id number] Medical Oncologist/Readiness Paraprofessional Medical Oncology 12/03/18 Montse Thompson MD [address] [facility] [address] [place], [place] [id number] Consulting Physician Gynecologic Oncology 12/03/18 Lela Hardy MD PhD [address] [place] [address] [address] [place], [place] [id number] Radiation Oncologist Radiation Oncology 12/23/18 Aft, Kianna Machado MD PhD [address] [place] [address] [address] [place], [place] [id number] Surgeon Surgical Oncology 12/23/18 09/17/21 documented as of this encounter
--- OUTSIDE RECORDS SUMMARY | 2024-04-24 13:45 | XMS_ITS | Encounter Summary ---
Author Organization [facility] Healthcare Address [address] [place] [address] Care Team Providers Care Developer Advisor Name Role Phone Ravi Smith MD Primary Care Provider [phone] Aft, Kianna Machado MD PhD Unavailable [phone] Santiago Gilbert MD Unavailable [phone] Dmitry Sanderson MD Unavailable [phone] Abbi Ventura MD Unavailable Montse Thompson MD Unavailable [phone] Lela Hardy MD PhD Unavailable [phone] Aft, Kianna Machado MD PhD Unavailable [phone] Encounter Details Date Type Department Care Team (Late st Contact Info) Description 01/23/2019 1:15 PM CDT Treatment [facility] Radiation Oncology at [facility] [address] [place] [address] Social History Tobacco Use Types Packs/Day Years [...] file 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 Gender Identity Not on file Sexual Orientation Not on file documented as of this encounter Plan of Treatment Not on file documented as of this encounter Visit Diagnoses Not on filedocumented in this encounter Care Teams Developer Advisor Relationship Specialty Start Date End Date Ravi Smith MD PCP - General 11/04/17 09/27/21 AfKianna simpson MD PhD [address] [place] [address] Surgeon Surgical Oncology 11/22/17 Santiago Gilbert MD [address] [place] [address] Concrete Vibrator Operator Gastroenterology 11/22/17 Dmitry Sanderson MD [address] [place] [address] Referring Physician Colon and Rectal Surgery 12/03/1805/06 Abbi Ventura MD [address] [place] [address] [address] [place] [address] Medical Oncologist/Ground Source Heat Pump Technician Medical Oncology 12/03/18 Montse Thompson MD [address] [facility] [address] [place], [place] [id number] Consulting Physician Gynecologic Oncology 12/03/18 Lela Hardy MD PhD [address] [place] [address] [address] [place] [address] Radiation Oncologist Radiation Oncology 12/23/18 Kianna Bunch MD PhD [address] [facility] [address] [place] [address] Surgeon Surgical Oncology 12/23/18 09/17/21 documented as of this encounter
--- OUTSIDE RECORDS SUMMARY | 2024-04-24 13:45 | XMS_ITS | Encounter Summary ---
Author Organization [facility] Healthcare Address [address] [place] [address] Care Team Providers Care Leadership Program Associate Name Role Phone Ravi Smith MD Primary Care Provider [phone] Aft, Kianna Machado MD PhD Unavailable [phone] Santiago Gilebrt MD Unavailable [phone] Dmitry Sanderson MD Unavailable [phone] Abbi Ventura MD Unavailable Montse Thompson MD Unavailable [phone] Lela Hardy MD PhD Unavailable [phone] Aft, Kianna Machado MD PhD Unavailable [phone] Encounter Details Date Type Department Care Team (Late st Contact Info) Description 02/02/2019 Orders Only RAD ONC TREATMENTS Miscellaneous, Not [...] on file 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 Gender Identity Not on file Sexual Orientation Not on file documented as of this encounter Plan of Treatment Not on file documented as of this encounter Procedures Procedure Name Priority Date/Time Associated Diagnosis Comments RAD ONC ARIA SESSION SUMMARY 02/02/2019 1:19 PM CDT documented in this encounter Results * RAD ONC ARIA SESSION SUMMARY (02/02/2019 1:19 PM CDT) Course Name C1 L BRS [place] 2018 ARIA Course Plan Date 12/26/2018 4:45 PM ARIA Elapsed Days 26 ARIA Treatment Start Date 01/07/2019 ARIA Treatment Site BST DPV ARIA Dose Given To Date (cGy) 600 ARIA Session Dosage Given (cGy) 200 ARIA Plan ID RESCAN_BST ARIA Fractions Treated 3 ARIA Prescribed Dose Per Fraction (cGy) 200 ARIA Prescribed Total Dose (cGy) 1,000 ARIA 02/02/2019 1:19 PM CDT us Not In File Miscellaneous RADIATION ONCOLOGY ORD ERABLES Final Result ARIA documented in this encounter Visit Diagnoses Not on filedocumented in this encounter Care Teams Leadership Program Associate Relationship Specialty Start Date End Date Ravi Smith MD PCP - General 11/04/17 09/27/21 Aft, Kianna Machado MD PhD [address] [place] [address] Surgeon Surgical Oncology 11/22/17 Santiago Gilbert MD [address] [place] [address] Conveyor Line Bakery Worker Gastroenterology 11/22/17 Dmitry Sanderson MD [address] [place] [address] Referring Physician Colon and Rectal Surgery 12/03/1805/06 Abbi Ventura MD [address] [facility] [address] [place], [place] [id number] Medical Oncologist/Psychological Assistant Medical Oncology 12/03/18 Montse Thompson MD [address] [facility] [address] [place], [place] [id number] Consulting Physician Gynecologic Oncology 12/03/18 Lela Hardy MD PhD [address] [place] [address] [address] [place] [address] Radiation Oncologist Radiation Oncology 12/23/18 Aft, Kianna Machado MD PhD [address] [facility] [address] [place], [place] [id number] Surgeon Surgical Oncology 12/23/18 09/17/21 documented as of this encounter
--- OUTSIDE RECORDS SUMMARY | 2024-04-24 13:45 | XMS_ITS | Encounter Summary ---
Author Organization [facility] Healthcare Address [address] [place] [address] Care Team Providers Care Power And Recovery Supervisor Name Role Phone Ravi Smith MD Primary Care Provider [phone] Aft, Kianna Machado MD PhD Unavailable [phone] Santiago Gilbert MD Unavailable Dmitry Sanderson MD Unavailable [phone] Abbi Ventura MD Unavailable Montse Thompson MD Unavailable [phone] Lela Hardy MD PhD Unavailable [phone] Aft, Kianna Machado MD PhD Unavailable [phone] Encounter Details Date Type Department Care Team (Late st Contact Info) Description 01/20/2019 1:15 PM CDT Treatment [facility] Radiation Oncology at [facility] [address] [place] [address] Social History Tobacco Use Types Packs/Day Years [...] on file 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 Gender Identity Not on file Sexual Orientation Not on file documented as of this encounter Plan of Treatment Not on file documented as of this encounter Visit Diagnoses Not on filedocumented in this encounter Care Teams Power And Recovery Supervisor Relationship Specialty Start Date End Date Ravi Smith MD PCP - General 11/04/17 09/27/21 AfKianna simpson MD PhD [address] [place] [address] Surgeon Surgical Oncology 11/22/17 Santiago Gilbert MD [address] [place] [address] Pyroglazer Gastroenterology 11/22/17 Dmitry Sanderson MD [address] [place] [address] Referring Physician Colon and Rectal Surgery 12/03/1805/06 Abbi Ventura MD [address] [place] [address] [address] [place] [address] Medical Oncologist/Rn Cardiology Medical Oncology 12/03/18 Montse Thompson MD [address] [facility] [address] [place], [place] [id number] Consulting Physician Gynecologic Oncology 12/03/18 Lela Hardy MD PhD [address] [place] [address] [address] [place] [address] Radiation Oncologist Radiation Oncology 12/23/18 Kianna Bunch MD PhD [address] [facility] [address] [place] [address] Surgeon Surgical Oncology 12/23/18 09/17/21 documented as of this encounter
--- OUTSIDE RECORDS SUMMARY | 2024-04-24 13:45 | XMS_ITS | Encounter Summary ---
Author Organization [facility] Healthcare Address [address] [place] [address] Care Team Providers Care Snuff Grinder Name Role Phone Ravi Smith MD Primary Care Provider [phone] Aft, Kianna Machado MD PhD Unavailable [phone] Santiago Gilbert MD Unavailable [phone] Dmitry Sanderson MD Unavailable [phone] Abbi Ventura MD Unavailable Montse Thompson MD Unavailable [phone] Lela Hardy MD PhD Unavailable [phone] Aft, Kianna Machado MD PhD Unavailable [phone] Encounter Details Date Type Department Care Team (Late st Contact Info) Description 01/22/2019 Orders Only RAD ONC TREATMENTS Miscellaneous, Not [...] on file 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 Gender Identity Not on file Sexual Orientation Not on file documented as of this encounter Plan of Treatment Not on file documented as of this encounter Procedures Procedure Name Priority Date/Time Associated Diagnosis Comments RAD ONC ARIA SESSION SUMMARY 01/22/2019 1:29 PM CDT documented in this encounter Results * RAD ONC ARIA SESSION SUMMARY (01/22/2019 1:29 PM CDT) Course Name C1 L BRS [place] 2018 ARIA Course Plan Date 12/26/2018 4:45 PM ARIA Elapsed Days 15 ARIA Treatment Start Date 01/07/2019 ARIA Treatment Site [place] DPV ARIA Dose Given To Date (cGy) 2,660 ARIA Session Dosage Given (cGy) 266 ARIA Plan ID RESCAN TANGS ARIA Fractions Treated 7 ARIA Prescribed Dose Per Fraction (cGy) 266 ARIA Prescribed Total Dose (cGy) 3,458 ARIA 01/22/2019 1:29 PM CDT us Not In File Miscellaneous RADIATION ONCOLOGY ORD ERABLES Final Result ARIA documented in this encounter Visit Diagnoses Not on filedocumented in this encounter Care Teams Snuff Grinder Relationship Specialty Start Date End Date Ravi Smith MD PCP - General 11/04/17 09/27/21 Aft, Kianna Machado MD PhD [address] [place] [address] Surgeon Surgical Oncology 11/22/17 Santiago Gilbert MD [address] [place] [address] Mine Manager Gastroenterology 11/22/17 Dmitry Sanderson MD [address] [place] [address] Referring Physician Colon and Rectal Surgery 12/03/1805/06 Abbi Ventura MD [address] [facility] [address] [place], [place] [id number] Medical Oncologist/Forensic Nurse Medical Oncology 12/03/18 Montse Thompson MD [address] [facility] [address] [place], [place] [address] Consulting Physician Gynecologic Oncology 12/03/18 Lela Hardy MD PhD [address] [place] [address] [address] [place], [place] [id number] Radiation Oncologist Radiation Oncology 12/23/18 Aft, Kianna Machado MD PhD [address] [place] [address] [address] [place], [place] [id number] Surgeon Surgical Oncology 12/23/18 09/17/21 documented as of this encounter
--- OUTSIDE RECORDS SUMMARY | 2024-04-24 13:45 | XMS_ITS | Encounter Summary ---
Author Organization [facility] Healthcare Address [address] [place] [address] Care Team Providers Care Assistant Branch Operations Manager Name Role Phone Ravi Smith MD Primary Care Provider [phone] Aft, Kianna Machado MD PhD Unavailable [phone] Santiago Gilbert MD Unavailable [phone] Dmitry Sanderson MD Unavailable [phone] Abbi Ventura MD Unavailable Montse Thompson MD Unavailable Lela Hardy MD PhD Unavailable [phone] Aft, Kianna Machado MD PhD Unavailable Encounter Details Date Type Department Care Team (Late st Contact Info) Description 01/21/2019 1:15 PM CDT Treatment [facility] Radiation Oncology at [facility] [address] [place] [address] Social History Tobacco Use Types Packs/Day Years [...] on file 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 Gender Identity Not on file Sexual Orientation Not on file documented as of this encounter Plan of Treatment Not on file documented as of this encounter Visit Diagnoses Not on filedocumented in this encounter Care Teams Assistant Branch Operations Manager Relationship Specialty Start Date End Date Ravi Smith MD PCP - General 11/04/17 09/27/21 AfKianna simpson MD PhD [address] [place] [address] Surgeon Surgical Oncology 11/22/17 Santiago Gilbert MD [address] [place] [address] Pediatric Occupational Therapist Gastroenterology 11/22/17 Dmitry Sanderson MD [address] [place] [address] Referring Physician Colon and Rectal Surgery 12/03/1805/06 Abbi Ventura MD [address] [place] [address] [address] [place] [address] Medical Oncologist/Transistor Tester Medical Oncology 12/03/18 Montse Thompson MD [address] [facility] [address] [place], [place] [id number] Consulting Physician Gynecologic Oncology 12/03/18 Lela Hardy MD PhD [address] [place] [address] [address] [place] [address] Radiation Oncologist Radiation Oncology 12/23/18 Kianna Bunch MD PhD [address] [facility] [address] [place] [address] Surgeon Surgical Oncology 12/23/18 09/17/21 documented as of this encounter
--- OUTSIDE RECORDS SUMMARY | 2024-04-24 13:45 | XMS_ITS | Encounter Summary ---
Author Organization [facility] Healthcare Address [address] [place] [address] Care Team Providers Care Putty Maker Name Role Phone Ravi Smith MD Primary Care Provider [phone] Aft, Kianna Machado MD PhD Unavailable [phone] Santiago Gilbert MD Unavailable [phone] Dmitry Sanderson MD Unavailable [phone] Abbi Ventura MD Unavailable Montse Thompson MD Unavailable [phone] Lela Hardy MD PhD Unavailable [phone] Aft, Kianna Machado MD PhD Unavailable [phone] Encounter Details Date Type Department Care Team (Late st Contact Info) Description 01/16/2019 Orders Only RAD ONC TREATMENTS Miscellaneous, Not [...] on file 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 Gender Identity Not on file Sexual Orientation Not on file documented as of this encounter Plan of Treatment Not on file documented as of this encounter Procedures Procedure Name Priority Date/Time Associated Diagnosis Comments RAD ONC ARIA SESSION SUMMARY 01/16/2019 2:11 PM CDT documented in this encounter Results * RAD ONC ARIA SESSION SUMMARY (01/16/2019 2:11 PM CDT) Course Name C1 L BRS MD 2018 ARIA Course Plan Date 12/26/2018 4:45 PM ARIA Elapsed Days 9 ARIA Treatment Start Date 01/07/2019 ARIA Treatment Site [place] DPV ARIA Dose Given To Date (cGy) 1,596 ARIA Session Dosage Given (cGy) 266 ARIA Plan ID RESCAN TANGS ARIA Fractions Treated 3 ARIA Prescribed Dose Per Fraction (cGy) 266 ARIA Prescribed Total Dose (cGy) 3,458 ARIA 01/16/2019 2:11 PM CDT us Not In File Miscellaneous RADIATION ONCOLOGY ORD ERABLES Final Result ARIA documented in this encounter Visit Diagnoses Not on filedocumented in this encounter Care Teams Putty Maker Relationship Specialty Start Date End Date Ravi Smith MD PCP - General 11/04/17 09/27/21 Aft, Kianna Machado MD PhD [address] [place] [address] Surgeon Surgical Oncology 11/22/17 Santiago Gilbert MD [address] [place] [address] Events Specialist Gastroenterology 11/22/17 Dmitry aSnderson MD [address] [place] [address] Referring Physician Colon and Rectal Surgery 12/03/1805/06 Abbi Ventura MD [address] [place] [address] [address] [place], [place] [id number] Medical Oncologist/Ladle Operator Medical Oncology 12/03/18 Montse Thompson MD [address] [facility] [address] [place], [place] [address] Consulting Physician Gynecologic Oncology 12/03/18 Lela Hardy MD PhD [address] [place] [address] [address] [place], [place] [id number] Radiation Oncologist Radiation Oncology 12/23/18 Aft, Kianna Machado MD PhD [address] [place] [address] [address] [place], [place] [address] Surgeon Surgical Oncology 12/23/18 09/17/21 documented as of this encounter
--- OUTSIDE RECORDS SUMMARY | 2024-04-24 13:45 | XMS_ITS | Encounter Summary ---
Author Organization [facility] Healthcare Address [address] [place] [address] Care Team Providers Care Sand Filler Name Role Phone Ravi Smith MD Primary Care Provider [phone] Aft, Kianna Machado MD PhD Unavailable [phone] Santiago Gilbert MD Unavailable [phone] Dmitry Sanderson MD Unavailable [phone] Abbi Ventura MD Unavailable Montse Thompson MD Unavailable [phone] Lela Hardy MD PhD Unavailable [phone] Aft, Kianna Machado MD PhD Unavailable [phone] Encounter Details Date Type Department Care Team (Late st Contact Info) Description 01/30/2019 Orders Only RAD ONC TREATMENTS Miscellaneous, Not [...] on file 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 Gender Identity Not on file Sexual Orientation Not on file documented as of this encounter Plan of Treatment Not on file documented as of this encounter Procedures Procedure Name Priority Date/Time Associated Diagnosis Comments RAD ONC ARIA SESSION SUMMARY 01/30/2019 1:15 PM CDT documented in this encounter Results * RAD ONC ARIA SESSION SUMMARY (01/30/2019 1:15 PM CDT) Course Name C1 L BRS [place] 2018 ARIA Course Plan Date 12/26/2018 4:45 PM ARIA Elapsed Days 23 ARIA Treatment Start Date 01/07/2019 ARIA Treatment Site REVELES DPV ARIA Dose Given To Date (cGy) 4,256 ARIA Session Dosage Given (cGy) 266 ARIA Plan ID RESCAN TANGS ARIA Fractions Treated 13 ARIA Prescribed Dose Per Fraction (cGy) 266 ARIA Prescribed Total Dose (cGy) 3,458 ARIA 01/30/2019 1:15 PM CDT us Not In File Miscellaneous RADIATION ONCOLOGY ORD ERABLES Final Result ARIA documented in this encounter Visit Diagnoses Not on filedocumented in this encounter Care Teams Sand Filler Relationship Specialty Start Date End Date Ravi Smith MD PCP - General 11/04/17 09/27/21 Aft, Kianna Machado MD PhD [address] [place] [address] Surgeon Surgical Oncology 11/22/17 Santiago Gilbert MD [address] [place] [address] Credit Administration Specialist Gastroenterology 11/22/17 Dmitry Sanderson MD [address] [place] [address] Referring Physician Colon and Rectal Surgery 12/03/1805/06 Abbi Ventura MD [address] [facility] [address] [place], [place] [id number] Medical Oncologist/Fishing Vessel Mate Medical Oncology 12/03/18 Montse Thompson MD [address] [facility] [address] [place], [place] [id number] Consulting Physician Gynecologic Oncology 12/03/18 Lela Hardy MD PhD [address] [place] [address] [address] [place], [place] [address] Radiation Oncologist Radiation Oncology 12/23/18 Aft, Kianna Machado MD PhD [address] [place] [address] [address] [place], [place] [id number] Surgeon Surgical Oncology 12/23/18 09/17/21 documented as of this encounter
--- OUTSIDE RECORDS SUMMARY | 2024-04-24 13:46 | XMS_ITS | Encounter Summary ---
Author Organization [facility] Address [address] [place] [address] Phone Care Team Providers Care Sports Official Name Role Phone Ravi Smith MD Primary Care Provider [phone] Aft, Kianna Machado MD PhD Unavailable [phone] Santiago Gilbert MD Unavailable [phone] Dmitry Snaderson MD Unavailable [phone] Abbi Ventura MD Unavailable Montse Thompson MD Unavailable [phone] Reason for Visit * Reason Comments Follow-up pt has concerns rega rding port Encounter Details Date Type Department Care Team (Late st Contact Info) Description 12/08/2018 1:40 PM CDT Office Visit [facility] Surgery [address] [facility] [address] [facility] 5th [place] [address] [place] [id number] Aracelis Jaramillo MD PhD [id number] [place] [address] Malignant neoplasm of upper-inner quadrant of left breast in female, 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) (Primary Dx); Symptomatic disorder of neck Social History Tobacco Use Types Packs/Day Years [...] on file Legal Sex Female 1:06 AM [employer] Gender Identity Not on file Sexual Orientation Not on file documented as of this encounter Progress Notes * Aracelis Jaramillo MD PhD - 12/08/2018 1:40 PM CDT Chief Complaint: My doctor thinks I have a bulging neck vein. History of Present Illness: Aleah Gerber, 1955, is a 63 y.o. woman previously seen by my partner Dr. Kianna Bunch for a left breast cancer found on CT scan imaging staging for a colon cancer.She recently underwent re-excision of her lumpectomy cavity with complete resection of her disease.She did undergo initial partial mastectomy in January of 2018 followed by chemotherapy for her colon cancer with FOLFOX. She has also completed adjuvant chemotherapy for the breast with Adriamycin and Cytoxan. On recent examination patient was noted to have nodularity on the right neck and was felt to have a bulging neck vein. She was referred for evaluation. Of note, the patient reports that she did lose some weight although feels that she has gained 10 lb recently. She has not noted any facial swelling or neck swelling. She has had 3 episodes of blood clots during treatment for her to cancers. She is currently on Xarelto. She has no breast complaints. Her only complaint is that of occasional right shoulder pain and discomfort in her neck since her port was placed a year ago. Aleah Gerber's [employer] history, past medical history, past surgical history, allergies, medications, social history, and family history were reviewed. Review of systems: Review of systems is negative other than complaints as documented above. Exam Vital signs: She is 5 ft 9 in tall and weighs 234 lb, General: Well-developed and well-nourished. Neuro: Patient is awake and alert and cooperative. Psych: Appropriate mood and affect for this visit. HEENT: Normocephalic, atraumatic. Anicteric sclera, extraocular eye movements intact, hearing is grossly intact. No nasal discharge. Moist mucous membranes. Neck: Supple without overt masses or adenopathy. I am able to palpate the catheter of the port extending to the internal jugular vein where it enters. I do not detect any abnormal cording of the neckvasculature. There is no erythema or tenderness. The patient's area of palpable concern for a knot is the end of the catheter as it enters into the vein. There is no facial swelling or abnormal edema. Respiratory: There is no obvious wheezing or dyspnea. No use of accessory muscles of respiration. Cardiovascular: Pulse is regular. No peripheral edema. No jugular venous distention. Right macey catheter in place without evidence of infection on the anterior chest wall. Gastrointestinal: Abdomen is soft without evidence of peritonitis. Lymphatics: There is no cervical, supraclavicular, or infraclavicular adenopathy. Skin: There are no worrisome skin lesions in the examined skin. Breast exam: Deferred Imaging: I have personally reviewed her imaging. I did review her MRI in August of 2018. Her port a catheter is noted to be in place. There is no abnormality of the soft tissues of the neck noted. Assessment: Normal neck exam with port a catheter in place. Plan: Aleah's area of concern within the right neck represents the catheter tubing as it enters into the internal jugular vein. There is a slight kink in the tubing that can be seen on the x-ray examination which was taken after her port placement. The catheter however does work without any difficulties. I do not detect any swelling of the face or neck. I do not detect any jugular venous distention. I reassured the patient that there are no concerns at this time. Given her shoulder discomfort and occasional neck discomfort however, I did discuss the need to remove the port as soon as she no longer needs it. She will thus discuss this with her medical oncologist and return to see Dr. Julio C trujilloat port removal. I answered all her questions today. She knows to call with questions. Thank you for the kind referral and opportunity to be involved in the care of Aleah Gerber. Please call with questions. This note is dictated and transcribed by [employer]. [employer] variances may occur. Despite proofreading, typographical errors may occur. cc: Ravi Smith MD documented in this encounter Plan of Treatment Not on file documented as of this encounter Visit Diagnoses Diagnosis Malignant neoplasm of upper-inner quadrant of left breast in female, estrogen receptor negative (HCC)- Primary Symptomatic disorder of neck documented in this encounter Care Teams Sports Official Relationship Specialty Start Date End Date Ravi Smith MD PCP - General 11/04/17 09/27/21 Aft, Kianna Machado MD PhD [address] [place] [address] Surgeon Surgical Oncology 11/22/17 Santiago Gilbert MD [address] [place] [address] Automatic Beam Warper Tender Gastroenterology 11/22/17 Dmitry Sanderson MD [address] [place] [address] Referring Physician Colon and Rectal Surgery 12/03/1805/06 Abbi Ventura MD [address] [place] [address] Medical Oncologist/[facility] Shift Lead Medical Oncology 12/03/18 Montse Thompson MD [address] [place] [address] Consulting Physician Gynecologic Oncology 12/03/18 documented as of this encounter
--- OUTSIDE RECORDS SUMMARY | 2024-04-24 13:46 | XMS_ITS | Encounter Summary ---
Author Organization [facility] Healthcare Address [address] [place] [address] Care Team Providers Care Motor Scooter Repairer Name Role Phone Hugo Smith MD Primary Care Provider [phone] Tony Bunch MD PhD Unavailable Santiago Gilbert MD Unavailable [phone] Encounter Details Date Type Department Care Team (Late st Contact Info) Description 11/11/2018 3:00 PM CDT - 11/11/2018 4:15 PM CDT Surgery [facility] Operating Room [facility] [address] [place] [id number] Tony Bunch MD PhD [address] [place] [id number] RE-EXCISION BREAST BIOPSY CAVITY Surgery Details Date/Time Status Location OR Service Patient Class Case Cl ass Case Type Trauma Case? 11/11/2018 3:00 PM Posted [facility] OR POD 4 A Oncology Outpatient Elective Panel 1 Procedure LRB Anes Op Region Wound Class Comments RE-EXCISION BREAST BIOPSY CAVITY Left Monitor Anesthesia Care Breast Class I - Clean Surgeon Surgeon Role Service Panel Tony Bunch MD PhD Primary Oncology 1 Jennifer Overton MD Resident - Assisting Gener al Surgery 1 Case Notes AUTH INFO ENTERED INTO SOARIAN. BBspaceK 09/30/2018 documented in this encounter Social History Tobacco Use Types Packs/Day Years Used Date Smoking Tobacco: Former Cigarettes 1 2015 Smokeless Tobacco: Never Alcohol Use Standard Drinks/Week Comments Yes 0 (1 standard drink = 0.6 oz pur e alcohol) socially AUDIT-C Answer Date Recorded Frequency of Alcohol Consumption Monthly or less 09/22/2018 Average Number of Drinks Not on file 019 Frequency of Binge Drinking Not on file 09/04 Comments No Sex and Gender Information Value Date Recorded Sex Assigned at Not on file Legal Sex Female 1:06 AM WASTE HAND Gender Identity Not on file Sexual Orientation Not on file documented as of this encounter Last Filed Vital Signs Vital Sign Reading Time Taken Comments Blood Pressure 117/61 11/11/2018 1:38 PM CDT Pulse 80 11/11/2018 1:38 PM CDT Temperature 36.6 ??C (97.9 ??F) 11/11/2018 1:38 PM CD T Respiratory Rate 21 11/11/2018 1:38 PM CDT Oxygen Saturation 96% 11/11/2018 1:38 PM CDT Inhaled Oxygen Concentration - - Weight 99.8 kg (220 lb) 09/22/2018 11:05 AM CDT Height 175.3 cm (5' 9 ) 09/22/2018 11:05 AM CDT Body Mass Index 32.49 09/22/2018 11:05 AM CDT documented in this encounter Medications at Time [...] (six) hours as needed for wheezing 0 amLODIPine (NORVASC) 5 mg tabletIndication s:hypertension Take 5 mg by mouth every morning Patient doesn't recall if takes in AM or PM 0 02/21/2018 9 atorvastatin (LIPITOR) 20 mg tabletIndication s:hyperlipidemia Take [...] skin every 7 days Saturday 1 fluticasone furoate-vilanter ol (BREO ELLIPTA) 100-25 mcg/dose diskus inhalerIndicatio ns:Bronchospasm Prevention with COPD Inhale 1 puff every morning Rinse mouth with water after use. Do not swallow. 9 hydroCHLOROthiaz frederick (HYDRODIURIL) 12.5 mg tabletIndication s:hypertension [...] needed for pain 8 tablet 11/11/2018 9 potassium chloride ER (KLOR-CON,K-DUR) 10 mEq [...] Refills Last Filled Start Date End Date oxyCODONE (ROXICODONE) 5 mg immediate release tabletIndications: Pain Take 1 tablet (5 mg total) by mouth every 4 (four) hours as needed for pain 8 tablet 11/11/2018 02/14/2019 documented in this encounter Discharge Disposition Disposition Code Departure Means Destination Discharge to home or self care documented in this encounter H&P Notes * Jennifer Overton MD - 11/11/2018 4:00 PM CDT I have reviewed the H&P, examined the patient, and endorse the findings as written. Plan of Care : Based on the above findings, I consider Aleah Gerber to be an acceptable risk for : Procedure(s): RE-EXCISION BREAST BIOPSY CAVITY Cosigned by Tony Bunch MD PhD at 11/12/2018 10:24 AM CDT Source Note - Montse Thompson MD - 10/20/2018 12:00 AM CDT PATIENT: ALEAH GERBER : 1955 FARHAT: 10/20/2018 REASON FOR VISIT: BRCA2 mutation carrier. HISTORY OF PRESENT ILLNESS: Ms. Gerber is [...] of her ovaries due this BRCA2 mutation. The patient states that she does complain of fatigue. She has pain in her spine and her trunk. The patient has had a neurologic evaluation. The patient was also diagnosed with pneumonia approximately3 weeks ago. The patient does complain of shortness of breath, which she feels is related to her COPD and her pneumonia. She also complains of urinary incontinence. Since she has discontinued chemothe rapy, this is gradually improving. She has tingling in both her hands and feet. She has numbness from where she had a left axillary dissection. She does suffer from some depression. Therefore, she takes Xanax and sertraline. She has some hot flashes, which are manageable. The patient has not been sexually active for the last 6 months. The patient also complains of alopecia. She denies any pelvic pain, pelvic pressure, vaginal bleeding, or vaginal discharge. PAST MEDICAL HISTORY: 1. Obesity with a BMI of 33.6 kg/m??. 2. Hypertension. 3. Hypercholesterolemia. 4. Anemia, which did not require a blood transfusion. 5. Blood clots, for which she has had a pulmonary embolism. 6. She is diabetic and believes her last hemoglobin A1c was 5.2. 7. She does suffer from asthma and COPD. She has a pulmonology appointment but not until February 2019. 8. She suffers from obstructive sleep apnea as well. 9. She also has breast cancer and colon cancer. PAST SURGICAL HISTORY: 1. Inguinal hernia repair in the 1970s. 2. Left lumpectomy in 2017. 3. Bladder suspension vaginally, but she does not recall the date. 4. D&E. 5. Tubal ligation in 1991. 6. She had a laparoscopic left hemicolectomy on 12/27/2017. MEDICATIONS: 1. Potassium chloride 10 mEq twice daily. 2. Janumet XR 100/1000 mg once daily. 3. Trulicity 0.75/0.5 once a week. 4. Xanax 0.25 daily. 5. Xarelto 20 mg once a day. 6. Amlodipine 5 mg once a day. 7. Atorvastatin 20 mg once a day. 8. Magnesium 400 mg twice a day. 9. Hydrochlorothiazide 12.5 mg once a day. 10. Breo once a day. 11. Vitamins once a day. 12. Biotin once a day. 13. Sertraline 50 mg once a day. ALLERGIES: To tetanus and oxaliplatin. PAST OBSTETRICAL AND GYNECOLOGICAL HISTORY: She is a -1-1-2. Her last menstrual cycle is unknown. Her last Pap smear is unknown. She does have a remote history of an abnormal Pap smear, for which she had to have cryotherapy, but that was a remote time ago. The patient did take control pills for approximately 10 years. She never took hormone replacement therapy. HEALTH MAINTENANCE: Her last mammogram is unknown of the exact date. She had a colonoscopy approximately a year ago. She has had a bone density, which was normal. SOCIAL HISTORY: She used to smoke a pack per day for 40 years. She quit about 3 years ago. Drinking history: She used to drink for approximately 30 years. She quit approximately 3 years ago. She denies any drug use.She is and presents today alone. FAMILY HISTORY: Remarkable for a father with prostate cancer at the age of 67. Her sister was diagnosed with pancreatic cancer at the age of 45. She has multiple maternal cousins who had breast cancer in their 50s. There is no family history of ovarian, uterine, colon, kidney, or bladder cancer. Of note, the patient does have colon cancer herself. REVIEW OF SYSTEMS: Her 24-point review of systems is as noted above. PHYSICAL EXAMINATION: Vital Signs: Her blood pressure is 121/68, pulse is 84, respirations are 18. Her weight is 227 pounds, which is an increase of 5 pounds from her last visit, for a BMI of 33.6 kg/m??. General Appearance: Patient is a well developed, well nourished female in no acute distress. HEENT: Supple neck. No supraclavicular lymphadenopathy. No thyromegaly. Lungs: Clear to auscultation bilaterally. Heart: Regular rate and rhythm. Positive S1/S2. Breasts: Deferred. Abdomen: Soft, nontender, nondistended. Normoactive bowel sounds. She does have a laparoscopic incisions as well as a small midline from a hand port for laparoscopic hemicolectomy. Extremities: No clubbing, cyanosis, or edema. Back: No CVA tenderness. Pelvic Exam: External genitalia: Within normal limits. Urethra: Without masses or tenderness. Urethral meatus: Without any lesions or prolapse. Bladder: No masses or tenderness. Vulva: Normal Speculum Exam: A Pap smear was obtained. Bimanual: Cervix feels normal in size, shape, and consistency. Uterus feels overall normal in size.There are no large adnexal masses, tenderness, or nodularity appreciated. Rectovaginal: Exam is confirmatory. Guaiac is negative. DATA: Radiographic imaging from 05/28/2018: The patient had a CT scan of the chest, abdomen, and pelvis, and there is no mention of any abnormalities noted of the pelvis on this CT scan. ASSESSMENT AND PLAN: This is a 63-year-old female with a BRCA2 mutation. 1. BRCA2 mutation: The patient was made aware that, at this time, there is only an indication for risk-reducing bilateral salpingo-oophorectomy. The patient does not have any evidence of Grullon syndrome, and therefore, removal of her uterus is not warranted at this time. The patient will, however, be sent for an ultrasound and a CA-125, and we will follow up on her Pap smear, to make sure that a hysterectomy is ultimately not indicated. 2. Preoperative consents: The patient was consented for exam under anesthesia, laparoscopic bilateral salpingo-oophorectomy, possible exploratory laparotomy, possible cystoscopy, and other indicated procedures. The patient understands that the risks include but are not limited to bleeding, infection, or damage to surrounding organs, blood vessels, and nerves. The patient signed surgical consent, and ideally, she would like this to be coordinated with Dr. Bunch's surgery on 11/11/2018. 3. CPAP: The patient was sent to CPAP at the same time. 4. Radiographic imaging: She will have an ultrasound prior to her surgical intervention, as well asa CA-125. 5. Follow-up will be postop, unless there are any new issues that arise. Additionally, a blood consent was also signed. ELECTRONICALLY SIGNED - 10/22/2018 11:36 AM Premal Dawit Thompson M.D. Professor, Department of Obstetrics and Gynecology Division of Gynecologic Oncology [facility] DIANE/linda/#[id number] cc: BIRIDE LEBLANC M.D. / TONY BUNCH MD / HUGO SMITH MD / / NICOLE LÓPEZ MD / MELIZA JENNINGS MD / / documented in this encounter Miscellaneous Notes * Op Note - Tony Bunhc MD PhD - 11/11/2018 4:45 PM CDT ??Operative Report SURGEON: Tony Bunch MD PhD SURGICAL TEAM: Surgeon(s) and Role: * Tony Bunch MD PhD - Primary * Jennifer Overton MD - Resident - Assisting DATE OF SURGERY : 11/11/2018 PREOPERATIVE DIAGNOSIS: Pre-op Diagnosis * History of breast cancer [Z85.3] left Breast cancer POSTOPERATIVE DIAGNOSIS: Post-op Diagnosis * History of breast cancer [Z85.3] left Breast cancer PROCEDURE: RE-EXCISION BREAST BIOPSY CAVITY (L) INDICATION FOR PROCEDURE: Aleah Gerber is a 63 y.o. woman who was found to have a left breast cancer. She underwent a partialmastectomy and sentinel node procedure. The final pathology revealed that her margins were close orpositive around the partial mastectomy at the posterior margin and I, therefore, recommended a reexcision to clear them widely. She presents today for that purpose. ANESTHESIA: Monitor Anesthesia Care FINDINGS The patient had a left breast reexcision performed without difficulty. There was no gross evidence of residual disease. OPERATIVE DETAILS After obtaining informed consent, the patient was brought to the operating room placed on proceduretable in the supine position. ??A time-out was performed verifying the correct patient, correct procedure,??correct positioning, correct special equipment in the room. ??Preoperative antibiotics wereadministered intravenously 20 minutes prior to the incision time. Sedation was then initiated with propofol and fentanyl and the patient was prepped and draped in the standard surgical fashion. The left breast was examined and the incision was identified. The previous incision site was infiltrated with a mixture of 1% plain lidocaine and 0.5% plain Marcaine to create a field block. The incision wa s then made and carried down through the dermis with electrocautery. The cavity was then enteredt and the seroma was aspirated. The entire posterior aspect of the cavity was excised down to the pectoralis muscle. The tissue was then transected from the posterior attachments and oriented. It was passed off the field and sent to pathology. Attention was then turned to the wound. Aggressive hemostasis was obtained with electrocautery. The wound was irrigated with copious amounts of sterile saline.The deep dermal layer was then reapproximated with interrupted 3-0 Vicryl stitches. The skin was reapproximated with a running subcuticular using 4-0 Monocryl. Surgical glue dressing was applied. Thepatient tolerated the procedure well, was awakened and transferred to the recovery room. ?? Estimated Blood Loss: 10 mL Urine output : Not measured Intraoperative Fluids: See record Blood/Blood Products Transfused: 0 mls Specimens: ID Type Source Tests Collected by Time Destination A : Reexcision Left Breast Biopsy Cavity, Stitch Nam New Margin Tissue Breast, excisional biopsy/partial mastectomy SURGICAL PATHOLOGY Tony Bunch MD PhD 11/11/2018 1654 Complications: None Condition on Discharge from the operating room was stable Tony Bunch MD PhD Date: 11/12/2018 Time: 10:04 AM TEACHING ATTESTATION : I was present and directly participated in the entire procedure (including opening and closing). * Pre-Procedure Instructions - Shruti Stanton, RN - 09/22/2018 11:07 AM CDT PRE-SURGICAL INSTRUCTIONS ?? Surgery location provided to patient ?? Arrival time and surgical time will be provided by your surgeon. ?? Bring a current list of all medications. ?? Bring your photo ID and insurance card with you. ?? Bring a method of payment for any deductible that may be due. Antiseptic/antibacterial soap will decrease the amount of germs on your skin. The chance of gettingan infection will reduce so it is important to minimize risk for infection by doing the following: ?? Change bed linens the night before surgery so you are sleeping in clean sheets . ?? Shower the evening before and the morning of surgery with an antibacterial soap such as dial or chlorhexidine. ?? Wash your hair and face with your regular shampoo ( no conditioners) and facial cleanser. Do notuse the antiseptic soap on your face or hair. ?? Do not shave the area where surgery is to be performed 24 hours prior to surgery. ?? No lotions, powders, creams, make-up, deodorant, hair products or Vaseline the morning of surgery ?? Wear clean loose comfortable clothes the morning of surgery If your surgeon's office has not notified you of your surgery time within 2 days of your surgery, please call [phone] and ask for your surgeon's office Dr. Bunch documented in this encounter Plan of Treatment Not on file documented as of this encounter Procedures Procedure Name Priority Date/Time Associated Diagnosis Comments SURGICAL PATHOLOGY Routine 11/11/2018 4:54 PM CDT History of breast cancer RE-EXCISION BREAST BIOPSY CAVITY 11/11/2018 4:25 PM CDT History of breast cancer Case Notes AUTH INFO ENTERED INTO SOARIAN. TXK 09/30/2018 POCT GLUCOSE DEVICE Routine 11/11/2018 1:25 PM CDT documented in this encounter Results * Surgical pathology (11/11/2018 4:54 PM CDT) Tissue (Breast, excisional biopsy/ partial mastectomy) 11/11/2018 4:54 PM CDT Narrative PATHOLOGY [facility] - 11/24/2018 10:51 AM CDT EPIC results best viewed via link to PDF [facility]a Mu[facility]iz [facility] [place] [address] SURGICAL PATHOLOGY REPORT FINAL Patient Name: ?? ALEAH GERBER Gender: ??F : ??1955 (Age: 63) Address: ??[address] [place], [place] ??[address] [facility] #: ??[id number] Taken:11/11/2018 Received:11/11/2018 Reported: 11/24/2018 Patient Type: [facility] SDS ?? Service: Surgery Location: [facility] Physician(s): ??Hortencia Warren M.D. Michael Mulligan, M.D. Diagnosis: A. ??Breast, left, re-excisional biopsy ? - No evidence of residual invasive carcinoma or ductal carcinoma in situ ? - Incidental intraductal papilloma with usual ductal hyperplasia, apocrine metaplasia and associated with microcalcifications - Prior surgical site changes - New surgical margin negative for malignancy ?? pes/11/24/2018 09:32 By this signature, I attest that the above diagnosis is based upon my personal examination of the slides(and/or other material indicated in the diagnosis). Zaida Hernandez MD PhD Report Electronically Reviewed and Signed Out By ??Zaida Hernandez MD PhD 11/24/2018 10:51:38 Microscopic Description and Comment: Microscopic examination substantiates the above cited diagnosis. 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 ??Operative procedure: Reexcision of left breast biopsy cavity. Specimen(s) Received: A: Reexcision left breast biopsy cavity Gross Description: Received in a single formalin filled container labeled with the patient's name and reexcision left breast biopsy cavity, stitch nam new margin is a roughly tremulous shaped portion of lobular, yellow-tovar fatty tissue weighing 6.1 g, measuring 4.2 x 3.0 x 2.0 cm, and with a suture indicating the new true margin as per the container label. ??The surface of the new true margin is inked in blue while the opposing surface is inked in black. ??Sections show lobular, yellow fatty tissue with some central, rubbery, white pink fibrous tissue. ??There is no gross evidence of mass or tumor formation. ??Labeled A1 to A8 - specimen submitted entirely and sequentially. ??Jar 0. The total formalin fixation time is 28 hours. mr211/12/2018 12:17 Deana Shelton MS, PA (ASC By this signature, I attest that the above diagnosis is based upon my personal examination of the slides(and/or other material). The performance characteristics of some immunohistochemical stains, fluorescence in-situ hybridization tests and immunophenotyping by flow cytometry cited in this report (if any) were determined by the Surgical Pathology Department at [facility] as part of an ongoing quality systems engineer program and in compliance with federally [...] determined by the Surgical Pathology Department of [facility]. ??It has not been cleared or approved by the U. S. Food and Drug Administration. IMAGES AND SCANNED DOCUMENTS, IF INCLUDED, ONLY VIEWABLE IN PDF VERSION OF REPORT us Tony Bunch MD PhD LAB PATHOLOGY ORDERABLES F inal Result PATHOLOGY [facility] 3rd Floor [place], [place] [phone] * POCT glucose (11/11/2018 1:25 PM CDT) Glucose, POC 138 70 - 199 mg/dL [facility] Blood specimen (specimen) 11/11/2018 1:25 PM CDT 11/11/2018 1:25 PM CDT Tony Bunch MD PhD LAB POCT ORDERABLES - ROSEMARY CE Final Result [facility]HEL[facility] Department [place] [address] documented in this encounter Visit Diagnoses Diagnosis History of breast cancer Personal history of malignant neoplasm of breast History of breast cancer Personal history of malignant neoplasm of breast documented in this encounter Administered Medications Inactive Administered Medications - up to 3 most recent administrations Medication Order MAR Action Action Date Dose Rate Site HYDROcodone-acetaminophe n (NORCO) 5-325 mg per tablet 1 tablet 1 tablet, oral, Once as needed, 1st line for pain, Starting on Sat11/11/18 at 1752, For 1 dose, Phase I, When able to tolerate PO., Indications: PainIndications:Pain Given 11/11/2018 6:00 PM CDT 1 tablet Lactated Ringer's (LR) infusion 30 mL/hr, intravenous, Continuous, Starting on Sat11/11/18 at 1445, Pre-Op New Bag 11/11/2018 2:28 PM CDT Lactated Ringer's (LR) infusion 30 mL/hr, intravenous, Continuous, Starting on Sat11/11/18 at 1445, Pre-Op New Bag 11/11/2018 2:32 PM CDT 30 mL/hr 30 mL/hr lidocaine (XYLOCAINE) 10 mg/mL (1 %) injection 2-10 mg 2-10 mg (0.2-1 mL), other, Once as needed, pain with IV placement, Starting on Sat11/11/18 at 1408, For 1 dose, Pre-Op, Administer volume needed to infiltrate IV site. Given 11/11/2018 2:33 PM CDT 2 mg lidocaine (XYLOCAINE) 15 mL, bupivacaine (MARCAINE) 15 mL solution As needed, Starting on Sat11/11/18 at 1700, Intra-Op Given 11/11/2018 5:00 PM CDT 30 mL Left Breast sodium chloride 0.9 % irrigation As needed, Starting on Sat11/11/18 at 1659, Intra-Op Given 11/11/2018 4:59 PM CDT 1,000 mL Surgical Site sodium chloride 0.9% flush 0.5-20 mL 0.5-20 mL, intra-catheter, As needed, line care, Starting on Sat11/11/18 at 1408, Pre-Op, Flush volume based on line type and size. Flush before and after each use. documented in this encounter Discontinued Medications Medication Sig Discontinue Reason Start Date End Da te sitaGLIPtin-metformin (JANUMET) 50-1,000 mg per tablet Take 1 tablet by mouth 2 (two) times a day with meals Error 09/22/2018 JANUMET XR 100-1,000 mg tablet, ER multiphase 24 hr Take 1 tablet by mouth daily with dinner Duplicate order 08/29/2018 09/22/2018 al & mag hydroxide simethicone-diphenhyd kvyywt-ydvazfupd-axrp atin (MAGIC MOUTHWASH) suspension 5-1-9-1Indications:Ch emotherapy-Induced Mucositis Swish and swallow 10 mL 4 (four) times a day as needed (mucositis). Error 04/17/2018 09/22/2018 aspirin 81 mg chewable tablet Error 02/21/2018 09/22/2018 bisacodyl EC (DULCOLAX EC) 5 mg EC tabletIndications:con stipation Take 1 tablet (5 mg total) by mouth 2 (two) times a day as needed for constipation. Error 01/06/2018 09/22/2018 dexamethasone (DECADRON) 4 mg tablet Take 1 tab on days 2-4 of chemotherapy q 2 weeks. Error 01/31/2018 09/22/2018 diphenoxylate-atropin e (LOMOTIL) 2.5-0.025 mg per tabletIndications:Brenda motherapy-Induced Diarrhea,diarrhea Take 1 tablet by mouth 4 (four) times a day as needed for diarrhea. Error 03/14/2018 09/22/2018 famotidine (PEPCID) 20 mg tablet Take 20 mg by mouth 2 (two) times a day. Error 09/22/2018 lidocaine-prilocaine (EMLA) creamIndications:Admi nistration of Local Anesthesia Apply topically as needed for pain. Apply to port 1 hour before use and cover with tape. Error 01/31/2018 09/22/2018 LORazepam (ATIVAN) 0.5 mg tablet Take 1 tablet (0.5 mg total) by mouth as directed 1 by mouth 30 minutes prior to MRI Error 08/28/2018 09/22/2018 ondansetron (ZOFRAN) 8 mg tablet Take 1 tablet (8 mg total) by mouth every 8 (eight) hours as needed for nausea or vomiting. . Take 1 tablet every 8 hours for nausea.prn Error 01/31/2018 09/22/2018 polyethylene glycol (MIRALAX) 17 gram packetIndications:con stipation Take 1 packet (17 g total) by mouth 2 (two) times a day as needed (constipation). Error 01/06/2018 09/22/2018 potassium chloride ER (KLOR-CON,K-DUR) 10 mEq CR tablet Take 1 tablet/capsule (10 mEq total) by mouth 2 (two) times a day . Error 07/09/2018 09/22/2018 prochlorperazine (COMPAZINE) 10 mg tablet Take 1 tablet (10 mg total) by mouth every 6 (six) hours as needed for nausea. Error 01/31/2018 09/22/2018 psyllium 0.52 gram capsuleIndications:co nstipation Take 1 capsule (0.52 g total) by mouth daily. In case of constipation Error 12/31/2017 09/22/2018 sertraline (ZOLOFT) 50 mg tablet Take 50 mg by mouth daily Error 09/22/2018 documented as of this encounter Historical Medications * This list may reflect changes made after this encounter. sitaGLIPtin-metfo rmin (JANUMET XR) 100-1,000 mg tablet, ER multiphase 24 hrIndications:typ e 2 diabetes mellitus Take 1 tablet by mouth daily with dinner 10/14/2020 JANUMET XR 100-1,000 mg tablet, ER multiphase 24 hr Take 1 tablet by mouth daily with dinner 5 08/29/2018 09/22/2018 added in this encounter Active and Recently Administered Medications Times are shown in CDT. Continuous Medication Order 11/09/2018 11/10/2018 11/11/2018 Lactated Ringer's (LR) infusion 30 mL/hr, intravenous, Continuous, Starting on Sat11/11/18 at 1445, Pre-Op 1428 (New Bag - Prov ider: Adelina Baxter CRNA)1717 (Anesthesia Volume Adjustment - Provider: Adelina Baxter CRNA)1817 (Stopped - Provider: Dakotah Steve RN) Lactated Ringer's (LR) infusion 125 mL/hr, intravenous, Continuous, Starting on Sat11/11/18 at 1815, Phase I 1814 (Due) Lactated Ringer's (LR) infusion 30 mL/hr, intravenous, Continuous, Starting on Sat11/11/18 at 1445, Pre-Op 1432 (New Bag - Prov ider: Delores Brown RN) PRN Medication Order 11/09/2018 11/10/2018 11/11/2018 diphenhydrAMINE (BENADRYL) injection 12.5 mg 12.5 mg, intravenous, Every 15 min PRN, itching, Starting on Sat11/11/18 at 1739, For 2 doses, Phase I, Max cumulative dose 50 mg., Indications: Itching fentaNYL (SUBLIMAZE) preservative free injection 50 mcg 50 mcg, intravenous, Once as needed, uncontrolled pain on PACU admission, Starting on Sat11/11/18 at 1739, For 1 dose, Phase I, Then proceed to PACU 1st line analgesic., Indications: Pain HYDROcodone-acetaminophen (NORCO) 5-325 mg per tablet 1 tablet (COMPLETED) 1 tablet, oral, Once as needed, 1st line for pain, Starting on Sat11/11/18 at 1752, For 1 dose, Phase I, When able to tolerate PO., Indications: Pain 1800 (Given - Provid er: Dakotah Steve RN) HYDROmorphone (DILAUDID) injection 0.2 mg 0.2 mg, intravenous, Administer over 2 Minutes, Every 10 min PRN, 1st line for pain, Starting on Sat11/11/18 at 1739, Phase I, Notify Anesthesiologist if total PACU dose reaches 2 mg and pain score 5/10 or more., Indications: Pain lidocaine (XYLOCAINE) 10 mg/mL (1 %) injection 2-10 mg (COMPLETED) 2-10 mg (0.2-1 mL), other, Once as needed, pain with IV placement, Starting on Sat11/11/18 at 1408, For 1 dose, Pre-Op, Administer volume needed to infiltrate IV site. 1433 (Given - Provid er: Delores Brown RN) lidocaine (XYLOCAINE) 15 mL, bupivacaine (MARCAINE) 15 mL solution (CANCELED) As needed, Starting on Sat11/11/18 at 1700, Intra-Op 1700 (Given - Provid er: Tony Bunch MD PhD) meperidine (DEMEROL) preservative free injection 12.5 mg 12.5 mg, intravenous, Every 10 min PRN, shivering, Starting on Sat11/11/18 at 1739, For 2 doses, Phase I, Max cumulative dose 25 mg., Indications: Shivering naloxone (NARCAN) 0.4 mg/mL injection 0.04-0.4 mg 0.04-0.4 mg, intravenous, Once as needed, other, excessive sedation/respiratory depression, Starting on Sat11/11/18 at 1739, For 1 dose, Phase I, Dilute 0.4 [...] Once as needed, nausea, vomiting, Starting on Sat11/11/18 at 1739, For 1 dose, Phase I, Proceed to prochlorperazine if ondansetron has been given within the last 6 hours. prochlorperazine (COMPAZINE) injection 10 mg 10 mg, intravenous, Administer over 2 Minutes, Once as needed, nausea, vomiting, Starting on Sat11/11/18 at 1739, For 1 dose, Phase I, If nausea/vomiting not relieved by ondansetron within 30 minutes or if ondansetron has been given within the last 6 hours. sodium chloride 0.9 % irrigation (CANCELED) As needed, Starting on Sat11/11/18 at 1659, Intra-Op 1659 (Given - Provid er: Tony Bunch MD PhD - Comment: Left Breast) sodium chloride 0.9% flush 0.5-20 mL 0.5-20 mL, intra-catheter, As needed, line care, Starting on Sat11/11/18 at 1408, Pre-Op, Flush volume based on line type and size. Flush before and after each use. , Indications: Flushing sodium chloride 0.9% flush 0.5-20 mL 0.5-20 mL, intra-catheter, As needed, line care, Starting on Sat11/11/18 at 1408, Pre-Op, Flush volume based on line type and size. Flush before and after each use. documented in this encounter Orders Medications Ordered That Jefferson ht Not Have Been Administered Count Last Ordered Date First Ordered Date diphenhydrAMINE (BENADRYL) i njection 12.5 mg 1 11/11/2018 fentaNYL (SUBLIMAZE) preserv ative free injection 50 mcg 1 11/11/2018 HYDROmorphone (DILAUDID) injection 0.2 mg 1 11/11/2018 Lactated Ringer's (LR) infusion 2 9 meperidine (DEMEROL) preserv ative free injection 12.5 mg 1 11/11/2018 naloxone (NARCAN) 0.4 mg/mL injection 0.04-0.4 mg 1 11/11/2018 ondansetron (ZOFRAN) injection 4 mg 1 11/11 prochlorperazine (COMPAZINE) injection 10 mg 1 11/11/2018 sodium chloride 0.9% flush 0.5-20 mL 2 01/2019 Diet Count Last Ordered Date First Orde red Date ADULT DISCHARGE DIET 1 11/11/2018 Nursing Count Last Ordered Date First Orde red Date DISCHARGE ACTIVITY 3 11/11/2018 DISCHARGE CALL PROVIDER 6 11/11/2018 DISCHARGE DRESSING 5 11/11/2018 DISCHARGE INSTRUCTIONS 1 11/11/2018 documented in this encounter Care Teams Motor Scooter Repairer Relationship Specialty Start Date End Date Hugo Smith MD PCP - General 11/04/17 09/27/21 Aft, Tony Machado MD PhD [address] [place] [address] Surgeon Surgical Oncology 11/22/17 Santiago Gilbert MD [address] [place] [address] [employer] Certified Network Associate Gastroenterology 11/22/17 documented as of this encounter
--- OUTSIDE RECORDS SUMMARY | 2024-04-24 13:46 | XMS_ITS | Encounter Summary ---
Author Organization [facility] Address [address] [place] [address] Phone Care Team Providers Care Route Sales Specialist Name Role Phone Ravi Smith MD Primary Care Provider [phone] Aft, Kianna Machado MD PhD Unavailable [phone] Santiago Gilbert MD Unavailable [phone] Dmitry Sanderson MD Unavailable [phone] Abbi Ventura MD Unavailable Montse Thompson MD Unavailable [phone] Reason for Visit * Oncology (Routine) - Closed Specialty Diagnoses / Procedures Referred By Contac t Referred To Contact Medical Oncology / Oncology Diagnoses 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 Ventura to discuss TC Procedures ONCBCN CLINIC APPOINTMENT REQUEST RETURN [place] Montoya, KAM [address] [facility] [address] [address] Phone: tel: fax: Abbi Ventura MD [address] [place] [address] Phone: tel: fax: Referral ID Status Reason Start Date Expiration Date V isits Requested Visits Authorized [id number] Closed Specialty Services Required 06/04/2018 05/05/2019 99 99 Encounter Details Date Type Department Care Team (Late st Contact Info) Description 12/03/2018 2:30 PM CDT Office Visit [facility] Oncology [address] [place] [address] Abbi Ventura MD [address] [place] [address] Malignant neoplasm of descending colon (CMS/HCC) Social [...] on file 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 Gender Identity Not on file Sexual Orientation Not on file documented as of this encounter Last Filed Vital Signs Vital Sign Reading Time Taken Comments Blood Pressure 138/76 12/03/2018 2:41 PM CDT Pulse 76 12/03/2018 2:41 PM CDT Temperature 37 ??C (98.6 ??F) 12/03/2018 2:41 PM CDT Respiratory Rate 14 12/03/2018 2:41 PM CDT Oxygen Saturation 95% 12/03/2018 2:41 PM CDT Inhaled Oxygen Concentration - - Weight 106.1 kg (234 lb) 12/03/2018 2:41 PM CDT Height 175.3 cm (5' 9 ) 12/03/2018 2:41 PM CDT Body Mass Index 34.56 12/03/2018 2:41 PM CDT documented in this encounter Progress Notes * Vianey Miller, BIOPROCESS ENGINEER - 12/03/2018 2:30 PM CDT The Patient Identifying Data: Aleah Gerber is a 63 y.o. female seen in followup today DIAGNOSIS: 1. 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 Crystal IS risk showed no mutation in MLH 1 or PMS2 suggesting that the patient does not have Grullon syndrome. 4. Allergic reaction to oxaliplatin during cycle 6 of FOLFOX 5. DYPD genotype normal. 6. DVT/PE diagnosed 05/28/18 TREATMENT HISTORY: 1.In March 2017 she had changes in her [...] completely excised, and biopsy of mass done. 2. Pathology from mass biopsy was consistent with adenocarcinoma, with mucinous component, with pathology of polyps ranging from tubular adenoma to tubo-villous adenoma. 3. Staging chest/abdominal/pelvic CT scan in October 2017, an abnormal appearing 1.8 cm mass in the left breast was found, with irregular wall thickening involving approximately 6 x 5 cm segment of distal transverse colon at the splenic flexure, no abdominal pelvic lymph nodes identified. ??4. She underwent a diagnostic mammogram on 11/05/17 revealing ~ 1.8 cm spiculated mass at 9: 00 of the left breast, and a 4 mm satellite lesion, no abnormal lymph nodes. U/S revealed of left breast a2.3 cm hypoechoic spiculated mass at 9: 00, 8 cm from the nipple. She underwent a core biopsy of left breast mass, with pathology consistent with invasive ductal carcinoma ~ 1.4 cm, Grade 3, ER 0, PR0, HER-2 IHC 0. 5. Laproscopic left hemicolectomy on 12/27/[address] [...] MSH-2 and MSH-6, favoring high microsatellite instability 6. Partial mastectomy and sentinel lymph node biopsy on 01/14/[address] Kianna Bunch, pathology revealed invasive ductal carcinoma, measauring 3.5 cm, Grade 3, positive posterior margin 1 cm in length, DCIS (high grade), No evidence of malignancy in three lymph nodes (0/3) 7. Adjuvant FOLFOX chemotherapy started on 02/06/18 8. Patient went to ER after cycle 2 of FOLFOX with slurred speech and weakness in right side of herbody. Evaluation showed no evidence of stroke. She was seen by Allergy Immunology and there is no evidence of type I allergic reaction on skin testing. 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 Starting cycle 3 oxaliplatin dose was reduced by 25% and 5FU/LV continued at full dose 9. For cycle 4, patient declined Oxaliplatin as she was concerned that she had diarrhea and mood changes due to Oxaliplatin. Patient received 5FU/LV at full dose 10. For cycle 5 of adjuvant chemotherapy she got 5FU/LV at full dose and Oxaliplatin at 50% dose. She was willing to try one more dose of Oxaliplatin at 50% reduced dose to see how it goes. 11. Cycle 6 of FOLFOX with 5FU/LV at 25% reduced dose ( 25% dose reduced due to grade 2 mucositis) and oxaliplatin at 50% reduced dose. Oxaliplatin discontinued midway cycle 6 on 04/23/18 for tongue swelling and throat closing. 5FU/LV continued at reduced dose 12. Cycle 8 of adjuvant chemotherapy with 5FU/LV on 05/21/18 13. Cycle 1 of AC chemotherapy for breast cancer started on 06/25/18 finished cycle 4 on 08/12/2018 14. LVEF 65% Interval History Aleah Gerber returns to clinic for routine oncologic follow up. She recently underwent re-excision of a biopsy cavity in left breast, which she is healing well from. She is scheduled for radiation oncology consult on 12/18/18. Reports appropriate appetite, oral fluid intake and energy levels. Continues to report dry mouth with tenderness for which she is using salt water rinses. No other complaints. Review of Systems Review of systems positive for symptoms as per interval history. All other review of systems negative. Objective Vitals: Vitals BP 138/76 (BP Location: Right arm) Pulse 76 Temp 37 ??C (98.6 ??F) (Oral) Resp 14 Ht 175.3 cm (5' 9 ) Wt 106.1 kg (234 lb) SpO2 95% BMI 34.56 kg/m?? PERFORMANCE STATUS: ECOG 1 SKIN: Normal [...] palpable cervical, supraclavicular, submandibular adenopathy. BREAST: Right: well healed surgical incision without dominant masses, axillary adenopathy or skin changes. Left breast has well healing medial excision with surgical glue in place, no s/s infection, without masses, skin changes or axillary adenopathy. ACCESS: L infraclav port-a-cath in place and accessed. Lab/Radiology/Diagnostic Review: Hematology Lab History Some values may be hidden. Unless noted otherwise, only the newest values recorded on each date aredisplayed. Labs - Hematology Latest Ref Range 10/15/18 10/20/18 12/01/18 12/03/18 WBC 3.8 - 9.9 K/cumm 5.8 7.7 9.3 6.6 Total Hb, POC 11.9 - 15.5 g/dL 9.0 (A) 10.3 (A) 11.3 (A) 10.4 (A) Hct 35.6 - 45.5 % 28.3 (A) 32.2 (A) 34.7 (A) 31.6 (A) Plt 150 - 400 K/cumm 154 173 190 150 Neutrophil abs 1.7 - 6.5 K/cumm 4.2 5.5 6.3 4.7 (A) Abnormal value Lab Results Component Value Date SODIUM 139 12/03/2018 POTASSIUM 4.2 12/03/2018 CO2 28 12/03/2018 BUNSER 21 12/03/2018 GLUCOSE 143 12/03/2018 CREATININE 1.04 12/03/2018 CALCIUM 9.7 12/03/2018 CHLORIDE 104 12/03/2018 ALBUMIN 4.1 12/03/2018 AST 19 12/03/2018 ALT 14 12/03/2018 ALKPHOS 72 12/03/2018 BILITOT 0.2 12/03/2018 PROT 6.8 12/03/2018 ANIONGAP 8 12/03/2018 Tumor Marker History Some values may be hidden. Unless noted otherwise, only the newest values recorded on each date aredisplayed. Tumor Markers Latest Ref Range 08/14/18 08/27/18 10/15/18 10/20/18 CEA <=5.0 ng/mL 2.7 2.3 CA 125 ag 0.0 - 35.0 units/mL 12.3 Immunoglobulin G 700.0 - 1,600.0 mg/dL 425.0 (A) Immunoglobulin A 70.0 - 400.0 mg/dL 118.0 Immunoglobulin M 40.0 - 230.0 mg/dL 38.0 (A) Immunofixation No monoclonal protein detected. (A) Abnormal value Comments are available for some flowsheets but are not being displayed. Recent labs, radiology and pathology reviewed in [facility] ASSESSMENT: T4bN0 disease, Stage IIC colon adenocarcinoma: Completed adjuvant chemotherapy 05/2018. 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 Status post AC, completed 08/12/18. Underwent partial mastectomy with positive margin, therefore on 11/11/18 underwent re-excision. Scheduled for radiation oncology consult 12/18/18 MyRisk panel is positive for BRCA2 mutation, and VUS in BRIP1 and NBN: patient wants to hold off prophylactic mastectomy at this point. Schedule for BSO with Dr. Thompson 01/06/19 Fatigue: improving. Depression/anxiety: follow up by Dr. Simms as needed (not currently seeing). 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 Hypokalemia: on oral replacement. PLAN: 1. Radiation Oncology consult 12/18/18 2. Scheduled for BSO with Dr. Thompson 01/06/19 3. Return to clinic in 4 months after completion of radiation therapy 4. Colonoscopy due in December, she is aware of this and will make plans to schedule Aleah Gerber will follow up as directed above, she was encouraged to call in the interim with questions or concerns. Vianey Miller, MSN, OCN, ANP Nurse Practitioner, Medical Oncology C Winforms Developer completed by using [employer] Fluency Direct speaking software, therefore, transcriptionvariances may occur. 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) Malignant neoplasm of descending colon documented in this encounter Orders Appointment Requests Count Last Ordered Date Fi rst Ordered Date ONCBCN CLINIC APPOINTMENT REQUEST 2 019 12/03/2018 ONCBCN LAB APPOINTMENT 1 04/01/2019 documented in this encounter Care Teams Route Sales Specialist Relationship Specialty Start Date End Date Ravi Smith MD PCP - General 11/04/17 09/27/21 Aft, Kianna Machado MD PhD [address] [place] [address] Surgeon Surgical Oncology 11/22/17 Santiago Gilbert MD [address] [place] [address] Credit Coordinator Gastroenterology 11/22/17 Dmitry Sanderson MD [address] [place] [address] Referring Physician Colon and Rectal Surgery 12/03/1805/06 Abbi Ventura MD [address] [place] [address] [address] [place] [address] Medical Oncologist/Foundation Digger Medical Oncology 12/03/18 Montse Thompson MD [address] [place] [address] Consulting Physician Gynecologic Oncology 12/03/18 documented as of this encounter
--- OUTSIDE RECORDS SUMMARY | 2024-04-24 13:46 | XMS_ITS | Encounter Summary ---
Author Organization [facility] Address [address] [place] [address] Care Team Providers Care Boat Joiner Name Role Phone Ravi Smith MD Primary Care Provider [phone] Aft, Kianna Machado MD PhD Unavailable Santiago Gilbert MD Unavailable [phone] Dmitry Sanderson MD Unavailable [phone] Abbi Ventura MD Unavailable Montse Thompson MD Unavailable [phone] Lela Hardy MD PhD Unavailable [phone] Aft, Kianna Machado MD PhD Unavailable [phone] Encounter Details Date Type Department Care Team (Late st Contact Info) Description 01/09/2019 Orders Only RAD ONC TREATMENTS Miscellaneous, Not [...] file 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 Gender Identity Not on file Sexual Orientation Not on file documented as of this encounter Plan of Treatment Not on file documented as of this encounter Procedures Procedure Name Priority Date/Time Associated Diagnosis Comments RAD ONC ARIA SESSION SUMMARY 01/09/2019 1:59 PM CDT documented in this encounter Results * RAD ONC ARIA SESSION SUMMARY (01/09/2019 1:59 PM CDT) Course Name C1 L BRS NM 2018 ARIA Course Plan Date 12/26/2018 4:45 PM ARIA Elapsed Days 2 ARIA Treatment Start Date 01/07/2019 ARIA Treatment Site RE[facility]ELES DPV ARIA Dose Given To Date (cGy) 798 ARIA Session Dosage Given (cGy) 266 ARIA Plan ID L BREAST ARIA Fractions Treated 3 ARIA Prescribed Dose Per Fraction (cGy) 266 ARIA Prescribed Total Dose (cGy) 4,256 ARIA 01/09/2019 1:59 PM CDT us Not In File Miscellaneous RADIATION ONCOLOGY ORD ERABLES Final Result ARIA documented in this encounter Visit Diagnoses Not on filedocumented in this encounter Care Teams Boat Joiner Relationship Specialty Start Date End Date Ravi Smith MD PCP - General 11/04/17 09/27/21 Aft, Kianna Machado MD PhD [address] [place] [address] Surgeon Surgical Oncology 11/22/17 Santiago Gilbert MD [address] [place] [address] Blanking Machine Operator Gastroenterology 11/22/17 Dmitry Sanderson MD [address] [place] [address] Referring Physician Colon and Rectal Surgery 12/03/1805/06 Abbi Ventura MD [address] [facility] [facility] [address] [address] [address] [address] [place], [place] [id number] Medical Oncologist/Upholstery Restorer Medical Oncology 12/03/18 Montse Thompson MD [address] [facility] [address] [address] [address] [place] [address] Consulting Physician Gynecologic Oncology 12/03/18 Lela Hardy MD PhD [address] [facility] [address] [address] [place] [address] Radiation Oncologist Radiation Oncology 12/23/18 Aft, Kianna Machado MD PhD [address] [facility] [address] [place], [place] [id number] Surgeon Surgical Oncology 12/23/18 09/17/21 documented as of this encounter
--- OUTSIDE RECORDS SUMMARY | 2024-04-24 13:46 | XMS_ITS | Encounter Summary ---
Author Organization [facility] Healthcare Address [address] [place] [address] Care Team Providers Care Playroom Attendant Name Role Phone Ravi Smith MD Primary Care Provider [phone] Aft, Kianna Machado MD PhD Unavailable [phone] Santiago Gilbert MD Unavailable [phone] Encounter Details Date Type Department Care Team (Late st Contact Info) Description 11/11/2018 4:24 PM CDT Anesthesia Event [facility] Operating Room [facility] ([facility]) [address] [place] [address] Antony Linares MD [address] [place] [address] [place] [address] [place] [address] [phone] [place] [address] Anesthesia Record Procedure Summary Procedure Name Responsible Anesthesiologist Anesthesia Start Time Anesthesia Stop Time RE-EXCISION BREAST BIOPSY CAVITY (Left: Breast) Antony Linares MD 11/11/18 1624 11/11/18 1737 Events Date Time Event Comment 11/11/2018 1347 1624 An Start 1625 In Room 1626 An Start Data 1626 Start Supplemental O2 1630 An Induction The patient was reevaluated immediately before moderate or deep sedation use and before anesthesia induction. 1637 Anesthesia Ready 1645 Proc Start 1645 Incision Start 1724 Proc Fin 1728 an stop data 1730 Out of Room 1737 Handoff to RN I completed my handoff [...] disposition at the time of handoff: PACU 1737 An Stop Meds Name Total midazolam PF 2 mg fentaNYL 130 mcg lidocaine 1 % PF 100 mg propofol 100 mg propofol 622.72 mg ceFAZolin 2,000 mg Lactated Ringer's (LR) infusion 750 mL * Agents Name O2% N2O O2 * Blood No blood administrations on file. Lines, Drains, and Airways Type Details Placement Removal Implanted Port Placement Date: 01/14/18; Type: Power; Orientation: Right; Location: Chest; Inserted by: DR BUNCH; Removal Time: 04/09/19; Removal Reason: 0848 01/14/18 0000 by Cat Boss 04/09/19 0848 by Deana Soria, LYDIA Peripheral IV Placement Date: 11/11/18; Placement Time: 1428; Catheter Size: 22 G; Orientation: Right; Location: Hand; Inserted by: lorelei walsh; Insertion Attempts: 1; Removal Date: 11/11/18; Removal Time: 18111/11/18 1428 by Lorelei Walsh RN 11/11/18 1816 by Dakotah Steve, LYDIA RETIRED Surgical Site 11/11/18; 1725; Le ft; Breast; 01/19/19; Removal date unknown/not present on admission 11/11/18 1725 by Lisa Pedro RN 01/19/19 0000 by Reina Grullon RN documented in this encounter Social History Tobacco Use Types Packs/Day Years Used Date Smoking Tobacco: Former Cigarettes 2015 Smokeless Tobacco: Never Alcohol Use Standard [...] on file 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 Gender Identity Not on file Sexual Orientation Not on file documented as of this encounter OR Notes * Anesthesia Postprocedure Evaluation - Dolores Denson MD - 11/11/2018 5:50 PM CDT Patient: Aleah Gerber Procedure Summary Date: 11/11/18 Room / Location: [facility] CAM OR POD 4 ROOM A / [facility] CAM OR POD 4 Anesthesia Start: 1624 Anesthesia Stop: 1736 Procedure: RE-EXCISION BREAST BIOPSY CAVITY (Left Breast) Diagnosis: History of breast cancer (history of breast cancer) Surgeon: Kianna Bunch MD PhD Responsible Provider: Antony Linares MD Anesthesia Type: MAC ASA Status: 3 Anesthesia Type: MAC Last vitals BP 113/51 Pulse 62 Temp 36.4 ??C (97.5 ??F) (Temporal) Resp 21 SpO2 98% Anesthesia Post Evaluation Patient location during evaluation: PACU Patient participation: complete - patient participated Level of consciousness: fully awake Pain management: satisfactory to patient Airway patency: adequate and patent Evidence of recall: no Anesthetic complications: no Cardiovascular status: acceptable and hemodynamically stable Respiratory status: acceptable Hydration status: acceptable Pt is: normothermic Nausea/Vomiting status: none * Anesthesia Preprocedure Evaluation - Antony Linares MD - 10/20/2018 11:58 AM CDT [facility] Preoperative Evaluation Record [facility] at [facility] ([facility]) Date: 10/20/18 Anesthesia Evaluation Procedure(s): RE-EXCISION BREAST BIOPSY CAVITY Pre-Op Diagnosis Codes: * History of breast cancer [Z85.3] HISTORY HPI .Aleah Gerber is a 63 y.o. female who is being evaluated prior to undergoing RE- EXCISION BREAST BIOPSY CAVITY for history of breast cancer . Past Medical History Information obtained from: patient and chart. Neurological + TIA (Possibe 2007) Number of TIA episodes: 1. Date of last TIA: 2007. + Psychiatric history - anxiety and depression Pertinent negatives: seizures; neuromuscular disease; CVA/stroke; CEA; ICA stenosis; dementia/mild cognitive impairment and carotid artery stent Cardiovascular + Systolic or diastolic dysfunction w/o CHF LVEF: 60-70%. + DVT/PE (Rt PE, DVT RLE ) Number of DVT/PE episodes: 1. Last VTE date: 05/28/18. Pertinent negatives: hypertension ; CAD ; NC ; CABG ; valvular heart disease; valve replacement; atrial fibrillation; arrhythmia; pacemaker/ICD; PVD; negative for CHF; drug-eluting stent(s); bare metal stent(s) and coronary angioplasty Respiratory + COPD Dyspnea frequency: daily. Rescue inhaler use: never. Hospitalizations/ER in the last year: 1. Most recent exacerbation: 09/2018. Pertinent negatives: asthma; pulmonary hypertension; no O2 use outside the hospital; no history of oral steriod use; no prior intubation for respiratory failure and non-smoker Hepatic / Heme Pertinent negatives: liver disease; history of anemia; history of thrombocytopenia and history of Jose Roberto positive Gastrointestinal + GERD - does not use medication. Daily symptoms. Pertinent negatives: hiatal hernia Renal / Pertinent negatives: renal disease; dialysis and nephrolithiasis Musculoskeletal/Pain Pertinent negatives: chronic pain; chronic opioid use and previous treatment for opioid use disorder Endocrine / Other + Diabetes mellitus - Diabetes type 2. Outpatient insulin use: none. Pt reported low glucose range is 100. Pt reported high glucose range is 150. Pt reported HgA1c: 5.3. + Obesity (BMI >30)- morbid obesity (BMI>40). + Cancer history- current cancer and s/p chemo. Cancer type: Colon CA dxd 11/2017 s/p hemicolectomy 12/2017; Left breast CA dxd 11/2017, last chemo 08/2018. . Pertinent negatives: thyroid disease; rheumatological disease and transplanted organ Functional Capacity Functional capacity: <4 METs Comments: Pt would be SOB with more than 1 flight of stairs 2/2 recent PNA end of September. Review of Systems + pedal edema (Ongoing pedal edema, hx of DVT RLE 05/28/18) + easy bruising (easy bruises ) + vision loss (Wears corrective reading glasses.) + heartburn (not at this time ) + chipped/loose teeth (Loose left lower molar) Pertinent negatives: productive cough; wheezing; SOB; recent cold/flu; fever; chest pain; palpitations; orthopnea; PND; Sickle Cell disease/trait; previous transfusion; transfusion reaction; melena/hematochezia; bleeding problems; syncope; dizziness; muscle weakness; chronic pain; numbness/tingling; hard of hearing; nausea; dysphagia; diarrhea; dentures/partials; diaphoresis and no unexpected weight changeMenstrual changes: s/p menopause. PAT Summary and Plans Cardiac risk classification of planned procedure: low cardiac risk. Preoperative assessment status: complete. Initial preoperative evaluation discussed with: Herson Fraire MD Additional comments: Aleah Gerber is a 63 y.o. female who is being evaluated prior to undergoing a low cardiac risk surgery. Revised Cardiac Risk Index factors are (history of cerebrovascular disease) for a total RCRI of 1 out of 6. Functional capacity is <4 METs Obstructive sleep apnea (VIOLETTE) screening status is STOP-Bang=5 suggesting HIGH RISK for VIOLETTE. The patient is at elevated risk for obstructive sleep apnea (VIOLETTE) per STOP-BANG screening questionnaire results. Patient informed of the possibility that they have undiagnosed VIOLETTE, which may increase their risk for perioperative respiratory events. Patient also informed of the possible long- term health problems associated with VIOLETTE. Because we do not feel that preoperative VIOLETTE testing is likely to outweigh the downsides of delaying surgery, we have recommended that the patient talk to their primary doctor or other clinician after surgery about getting tested for VIOLETTE. Blood bank needs for day of procedure: No type and screen needed Labs pending: CMP, Ca125, CBC, 14 T&S pending. Labs reviewed from 10/13/18 CMP unremarkable CBC remarkable for 9.0/28.3 (in this patient with known anemia, consistent with baseline) DOS: bedside glucometer and T&S. ------->>>>>>>>>>Awaiting final plan from Deandra prior to OR to give recommendations: Recommendations for Breast surgery with Dr. Bunch: only: The patient is on oral anticoagulation therapy with rivaroxaban (XARELTO) Estimated creatinine clearance is 65 ml/min or presumed to be greater than 50 mL/min pending lab results]. For this procedureand anesthetic, our estimation of bleeding-associated risks is that the possibility of a small amount of residual anticoagulation at the time of surgery would be acceptable. Therefore we recommend holding all doses of this anticoagulant for 2 days (48 hours) prior to the procedure. Therapeutic anticoagulation should be resumed post-operatively, typically on the day after surgery. Discussed with in surgeon's office. Please call the CPAP attending ([phone]) to revisit bleeding risk assessment, with any questions, or to discuss alternative management plans. Recommendation for anything TLH/BSO with Dr. Thompson: The patient is on oral anticoagulation therapy with rivaroxaban (XARELTO) Estimated creatinine clearance is presumed to be greater than 50 ml/min pending lab results. For this procedure and anesthetic, our estimation of bleeding- associated risks is high in that the possibility of a small amount of residual anticoagulation at the time of surgery would be unacceptable. Therefore we recommend holding all doses of this anticoagulant for 3 days (72 hours) prior to the procedure. Therapeutic anticoagulation should be resumed post-operatively when the bleeding risk is acceptable. Oral anticoagulation is typically not resumed for higher bleeding risk cases for 2-3 days or longer. Alternative anticoagulation therapies can be used in the interim if acceptable. . Please call the CPAP attending ([phone]) to revisit bleeding risk assessment, with any questions, or to discuss alternative management plans. Attempting to retrieve OSR for chart completion for recent hospitalization for COPD/PNA 09/2018 for chart completion. PT is feeling back to baseline pulmonary status. Preoperative evaluation performed by Suzanne Triana NP on 10/20/18 at 11:59 AM. . Follow up note Reviewed OSH record. No further work up. Awaiting labs Follow-up completed by: Miquel Brooks NP on 10/20/18 at 5:09 PM Follow up note Labs reviewed and are without significant findings. Surgeon's office reviews laboratory results independently. Follow-up completed by: Jie Good NP on 10/21/18 at 11:27 AM Follow up note Spoke with Rika with Dr. Thompson's office. Pt will not be having a TLH at this time, only breast surgery with Dr. Bunch. Two day hold only prior to OR. LVM with Cristy with Dr. Bunch. Follow-up completed by: Suzanne Triana NP on 10/28/18 at 9:01 AM CPAP complete. Patient Active Problem List Diagnosis ??? Malignant [...] ??? BRCA2 gene mutation positive in female Past Medical History: Diagnosis Date ??? Anemia ??? Anxiety ??? Asthma ??? At risk for sleep apnea Per assessment, STOP BANG= 5 ??? Breast cancer (CMS/HCC) 2018 Left Dxd 11/2017 ??? Breast lump ??? 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 Colon polyps ??? COPD (chronic obstructive pulmonary disease) (CMS/HCC) ??? COPD (chronic obstructive pulmonary disease) (CMS/HCC) ??? Depression ??? Former smoker Quit 2016 ??? History of blood clots ??? History of ileus 12/2017 ??? Hypercholesteremia ??? Hypertension ??? Obesity ??? PONV (postoperative nausea and vomiting) ??? TIA (transient ischemic attack) 2008 Past Surgical History: Procedure Laterality Date ??? BLADDER SUSPENSION 2010 ??? BREAST BIOPSY Left 11/12/2017 ??? BREAST BIOPSY Right 2009 Benign ??? BREAST LUMPECTOMY 2017 ??? COLONOSCOPY 2017 ??? HEMICOLECTOMY Left 12/27/2017 Laparoscopic left hemicolectomy ??? HERNIA REPAIR 1970's ??? INCONTINENCE SURGERY 2007 ??? INGUINAL HERNIA REPAIR Right 1969 ??? MASTECTOMY, PARTIAL Left 01/14/2018 Biopsy Breast Needle Localization partial mastectomy (L), Biopsy Eighty Four Lymph Node With Lymphoscintigraphy (L), Insertion Port A Cath (R) with ultrasound and fluroscopy ??? TUBAL LIGATION 1991 OB History 4 Para 3 Term 2 1 AB 1 Living 2 SAB TAB Ectopic Multiple Live Births Allergies Allergen Reactions ??? Tetanus Vaccines And Toxoid Swelling and Rash HOME MEDICATIONS : acetaminophen (TYLENOL) 500 mg tablet fluticasone furoate-vilanterol (BREO ELLIPTA) 100-25 mcg/dose diskus inhaler ALPRAZolam (XANAX) 0.25 mg tablet amLODIPine (NORVASC) 5 mg tablet atorvastatin (LIPITOR) 20 mg tablet biotin 1 mg capsule cholecalciferol (VITAMIN D3) 2,000 unit capsule dulaglutide (TRULICITY) 0.75 mg/0.5 mL pen injector hydroCHLOROthiazide (HYDRODIURIL) 12.5 mg tablet magnesium oxide 400 mg magnesium capsule potassium chloride ER (KLOR-CON,K-DUR) 10 mEq CR tablet rivaroxaban (XARELTO) 20 mg tablet sitaGLIPtin-metformin (JANUMET XR) 100-1,000 mg tablet, ER multiphase 24 hr BREO ELLIPTA 100-25 mcg/dose diskus inhaler Current Outpatient Medications: ??? acetaminophen (TYLENOL) 500 mg tablet ??? fluticasone furoate-vilanterol (BREO ELLIPTA) 100-25 mcg/dose diskus inhaler ??? ALPRAZolam (XANAX) 0.25 mg tablet ??? amLODIPine (NORVASC) 5 mg tablet ??? atorvastatin (LIPITOR) 20 mg tablet ??? biotin 1 mg capsule ??? cholecalciferol (VITAMIN D3) 2,000 unit capsule ??? dulaglutide (TRULICITY) 0.75 mg/0.5 mL pen injector ??? hydroCHLOROthiazide (HYDRODIURIL) 12.5 mg tablet ??? magnesium oxide 400 mg magnesium capsule ??? potassium chloride ER (KLOR-CON,K-DUR) 10 mEq CR tablet ??? rivaroxaban (XARELTO) 20 mg tablet ??? sitaGLIPtin-metformin (JANUMET XR) 100-1,000 mg tablet, ER multiphase 24 hr Social History Tobacco Use Smoking Status Former Smoker ??? Types: Cigarettes ??? Start date: 1972 ??? Last attempt to quit: 2016 ??? Years since quittin.4 Smokeless Tobacco Never Used Substance and Sexual Activity Alcohol Use Yes ??? Frequency: Monthly or less Comment: socially Substance and Sexual Activity Drug Use No Family History Problem Relation Age of Onset ??? Prostate cancer Father 60 ??? Pancreatic cancer Sister 40 ??? Other (pancreatic cancer) Sister ??? Liver cancer Maternal Grandmother 80 ??? Heart attack Mother 70 PAT Physical Exam Airway Exam: Mallampati: II Cervical ROM: FROM TM distance: 3 Cardiovascular Exam: Rate: regular Rhythm: regular Peripheral edema: right > left Pulmonary Exam: LCTA, bilat EENT Exam: trachea midline Dental Exam: Appears intact Skin Exam: Skin is warm. Turgor is normal. Abdominal exam: Abdomen is soft. Bowel sounds are present. Current state: Patient's current state is cooperative. Line/Drains/Tubes/Devices: Lines in situ (right chest): port Relevant diagnostics: ECG(s): 10/20/18-NSR, rate 64 12/10/17: EKG: Sinus bradycardia; minimal voltage criteria for LVH, may be normal variant Echocardiogram(s): 08/07/18- TTE: SUMMARY: LV size is normal. LVEF 65% (GLS -22%). Wall motion is normal. RV size and function are normal. Diastolic function: normal. No significant valve disease. Unable to estimate PASP due to lack of adequate TR jet. IVC is not visualized. DOPPLER/COLOR FOLOW DOPPLER COMMENTS: No AR seen, No MR seen, no , no MS, trace TR, normal PV. Diastolic function: Normal Stress test(s): N/A Cardiac catheterization(s): N/A PFT(s): N/A Vascular studies: N/A Other: 05/28/18-CT Chest IMPRESSION: There are filling defects involving the right main pulmonary artery, left lower lobe pulmonary artery, and segmental branches of the left upper lobe pulmonary arteries. These findings are compatible with pulmonary embolism. ??There is no suspicious pulmonary nodules. There is no axillary, supraclavicular, hilar or mediastinal lymphadenopathy. ??Heart is of normal size with no pericardial effusion. There is no evidence of right heart stranding. There is a right chest wall port catheter with the tip in the right atrium. 1. Extensive acute pulmonary embolism as described above. Right lower extremity deep vein thrombosis. 2. No evidence of metastatic disease involving chest, abdomen or pelvis. Vitals: 10/20/18 1150 BP: 105/68 Pulse: 65 Resp: 18 SpO2: 99% PT: No results found for requested labs within last 720 hours. INR: No results found for requested labs within last 720 hours. APTT: No results found for requested labs within last 720 hours. Hgb A1C: No results found for requested labs within last 720 hours. CBC RBC: 10/15/2018: 2.79 M/cumm* RDW: No results found for requested labs within last 720 hours. MCHC: 10/15/2018: 31.8 g/dL* MCH: 10/15/2018: 32.3 pg MCV: 10/15/2018: 101.4 fL* Hct: 10/15/2018: 28.3 %* Hgb: 10/15/2018: 9.0 g/dL* WBC: 10/15/2018: 5.8 K/cumm MPV: 10/15/2018: 9.3 fL Platelets: 10/15/2018: 154 K/cumm RDW CV: 10/15/2018: 13.2 % RDW Sd: 10/15/2018: 49.4 fL* BMP Glucose: 10/15/2018: 165 mg/dL Calcium: 10/15/2018: 9.3 mg/dL Sodium: 10/15/2018: 141 mmol/L Potassium: 10/15/2018: 4.1 mmol/L CO2: 10/15/2018: 24 mmol/L Chloride: 10/15/2018: 110 mmol/L BUN: 10/15/2018: 19 mg/dL Creatinine: 10/15/2018: 0.95 mg/dL STOP-Bang Total Score: 5 Ele index score: 100 DOS Physical Exam Medical history, medications, and allergies reviewed. Attestation: I endorse the findings of the anesthesia pre-evaluation assessment dated: 10/20/2018. Airway Exam: Mallampati: II Cervical ROM: FROM TM distance: normal Jaw ROM: full Cardiovascular Exam: Rate: regular Rhythm: regular Pulmonary Exam: LCTA, bilat EENT Exam: trachea midline Dental Exam: Chipped and otherwise appears intact (Tiny chips in both upper incisors.) Skin Exam: Skin is warm. Abdominal Exam: Abdomen is soft. Current state: Patient's current state is cooperative and interactive. Anesthesia Plan ASA 3 My patient is approved for the Anesthesia Controlled Medication protocol when under care of a [employer] Planned anesthesia: MAC Induction: Induction: intravenous. Postoperative Plan: Postoperative administration opioids intended. No postoperative mechanical ventilation intended. Patient's planned disposition post procedure is Outpatient. No trial extubation planned. Informed Consent: Discussed plan with [employer]. Anesthesia plan and risks discussed with patient. [...] (ANCEF) injection intravenous, As needed, Starting on Sat11/11/18 at 1629, Anesthesia Intra-op Given 11/11/2018 4:29 PM CDT 2,000 mg fentaNYL (SUBLIMAZE) preservative free injection intravenous, As needed, Starting on Sat11/11/18 at 1625, Anesthesia Intra-op Given 11/11/2018 4:50 PM CDT 30 mcg Given 11/11/2018 4:25 PM CDT 100 mcg Lactated Ringer's (LR) infusion 30 mL/hr, intravenous, Continuous, Starting on Sat11/11/18 at 1445, Pre-Op New Bag 11/11/2018 2:28 PM CDT lidocaine PF (XYLOCAINE) 10 mg/mL (1 %) preservative free injection As needed, Starting on Sat11/11/18 at 1629, Anesthesia Intra-op Given 11/11/2018 4:29 PM CDT 100 mg midazolam (VERSED) preservative free injection intravenous, Administer over 2 Minutes, As needed, Starting on Sat11/11/18 at 1625, Anesthesia Intra-op Given 11/11/2018 4:25 PM CDT 2 mg propofol (DIPRIVAN) IV intravenous, Continuous PRN, Starting on Sat11/11/18 at 1630, Anesthesia Intra-op Rate/Dose Change 11/11/2018 5:14 PM CDT 100 mcg/kg/min 61.86 mL/hr Rate/Dose Change 11/11/2018 4:50 PM CDT 120 mcg/kg/min 74. 23 mL/hr Rate/Dose Change 11/11/2018 4:46 PM CDT 100 mcg/kg/min 61. 86 mL/hr propofol (DIPRIVAN) IV intravenous, As needed, Starting on Sat11/11/18 at 1629, Anesthesia Intra-op Given 11/11/2018 4:29 PM CDT 100 mg documented in this encounter Care Teams Playroom Attendant Relationship Specialty Start Date End Date Ravi Smith MD PCP - General 11/04/17 09/27/21 Aft, Kianna Machado MD PhD [address] [place] [address] Surgeon Surgical Oncology 11/22/17 Santiago Gilbert MD [address] [place] [address] Oncology Physician Assistant Gastroenterology 11/22/17 documented as of this encounter
--- OUTSIDE RECORDS SUMMARY | 2024-04-24 13:46 | XMS_ITS | Encounter Summary ---
Author Organization [facility] Healthcare Address [address] [place] [address] Care Team Providers Care Junior Paralegal Name Role Phone Ravi Smith MD Primary Care Provider [phone] Aft, Kianna Machado MD PhD Unavailable [phone] Santiago Gilbert MD Unavailable [phone] Reason for Visit * Diagnostic Imaging (Routine) - Closed Specialty Diagnoses / Procedures Referred By Vijaya simpson Referred To Contact Diagnoses BRCA2 gene mutation positive in female Procedures US Transvaginal Montse Thompson MD Phone: tel: fax: [facility] (All Locations) Referral ID Status Reason Start Date Expiration Date Visits Re quested Visits Authorized [id number] Closed 11/20/2018 05/31/2020 1 1 Encounter Details Date Type Department Care Team (Latest Contact Info) Description 11/24/2018 12:15 PM CDT Ancillary Procedure [facility] - Ultrasound [address] [facility], [address] [place] [address] Montse Thompson MD [address] 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 Gender Identity Not on file Sexual Orientation Not on file documented as of this encounter Discharge Disposition Disposition Code Departure Means Destination Discharge to home or self care documented in this encounter Plan of Treatment Not on file documented as of this encounter Procedures Procedure Name Priority Date/Time Associated Diagnosis Comments US TRANSVAGINAL Schedule Routine, Read Routine (OP Routine) 11/24/2018 12:33 PM CDT BRCA2 gene mutation positive in female documented in this encounter Results * US Transvaginal (11/24/2018 12:33 PM CDT) Cul de Sac No free fluid visualized VIEWPOINT Endometrial Thickness 2.4 mm&millim eters VIEWPOINT Anatomical Region Laterality Modality Pelvis N/A Ultrasound 11/24/2018 12:3 4 PM CDT us Premal Ac Thompson MD IMG US PROCEDURES Final Result documented in this encounter Visit Diagnoses Diagnosis BRCA2 gene mutation positive in female documented in this encounter Care Teams Junior Paralegal Relationship Specialty Start Date End Date Ravi Smith MD PCP - General 11/04/17 09/27/21 Aft, Kianna Machado MD PhD [address] [place] [address] Surgeon Surgical Oncology 11/22/17 Santiago Gilbert MD [address] [place] [address] Machine Loader Gastroenterology 11/22/17 documented as of this encounter
--- OUTSIDE RECORDS SUMMARY | 2024-04-24 13:46 | XMS_ITS | Encounter Summary ---
Author Organization [facility] Healthcare Address [address] [place] [address] Care Team Providers Care Boilermaker Assembly And Erection Name Role Phone Ravi Smith MD Primary Care Provider [phone] Aft, Kianna Machado MD PhD Unavailable [phone] Santiago Gilbert MD Unavailable [phone] Dmitry Sanderson MD Unavailable [phone] Abbi Ventura MD Unavailable Montse Thompson MD Unavailable [phone] Encounter Details Date Type Department Care Team (Latest Contact Info) Description 12/08/2018 4:28 PM CDT Hospital Encounter [facility] [address] [place] [id number] Discharge Disposition: Discharge to home or self [...] on file 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 Do not swallow. 9 hydroCHLOROthiaz freedrick (HYDRODIURIL) 12.5 mg tabletIndication s:hypertension Take 12.5 [...] Procedure Name Priority Date/Time Associated Diagnosis Comments NEURO CT MR OUTSIDE REFERENCE Routine 12/08/2018 4:28 PM CDT Diagnosis unknown documented in this encounter Results * Neuro CT MR Outside Reference (12/08/2018 4:28 PM CDT) Impressions [facility] - 12/08/2018 4:28 PM CDT These images are for Reference purposes only and have not been reviewed by [facility] Radiology. ??There will be no report generated by a [facility] Radiologist. Narrative [facility] - 12/08/2018 4:28 PM CDT EXAMINATION: ??Images For Reference Purposes Only us Lela Hardy MD PhD IMG CT PROCEDURES Final Result [facility] documented in this encounter Visit Diagnoses Not on filedocumented in this encounter Care Teams Boilermaker Assembly And Erection Relationship Specialty Start Date End Date Ravi Smith MD PCP - General 11/04/17 09/27/21 Aft, Kianna Machado MD PhD [address] [place] [address] Surgeon Surgical Oncology 11/22/17 Santiago Gilbert MD [address] [place] [address] Morgue Keeper Gastroenterology 11/22/17 Dmitry Sanderson MD [address] [place] [address] Referring Physician Colon and Rectal Surgery 12/03/1805/06 Abbi Ventura MD [address] [place] [address] [address] [place] [address] Medical Oncologist/Sequencing Machine Operator Medical Oncology 12/03/18 Montse Thompson MD [address] [place] [address] [address] [place] [address] Consulting Physician Gynecologic Oncology 12/03/18 documented as of this encounter
--- OUTSIDE RECORDS SUMMARY | 2024-04-24 13:46 | XMS_ITS | Encounter Summary ---
Author Organization [facility] Healthcare Address [address] [place] [address] Care Team Providers Care Vision Care Associate Name Role Phone Ravi Smith MD Primary Care Provider [phone] Aft, Kianna Machado MD PhD Unavailable [phone] Santiago Gilbert MD Unavailable [phone] Dmitry Sanderson MD Unavailable [phone] Abbi Ventura MD Unavailable Montse Thompson MD Unavailable [phone] Lela Hardy MD PhD Unavailable [phone] Aft, Kianna Machado MD PhD Unavailable [phone] Encounter Details Date Type Department Care Team (Late st Contact Info) Description 01/12/2019 Orders Only RAD ONC TREATMENTS Miscellaneous, Not [...] on file 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 Gender Identity Not on file Sexual Orientation Not on file documented as of this encounter Plan of Treatment Not on file documented as of this encounter Procedures Procedure Name Priority Date/Time Associated Diagnosis Comments RAD ONC ARIA SESSION SUMMARY 01/12/2019 2:16 PM CDT documented in this encounter Results * RAD ONC ARIA SESSION SUMMARY (01/12/2019 2:16 PM CDT) Course Name C1 L BRS MA 2018 ARIA Course Plan Date 12/26/2018 4:45 PM ARIA Elapsed Days 5 ARIA Treatment Start Date 01/07/2019 ARIA Treatment Site [facility] DPV ARIA Dose Given To Date (cGy) 1,064 ARIA Session Dosage Given (cGy) 266 ARIA Plan ID RESCAN TANGS ARIA Fractions Treated 1 ARIA Prescribed Dose Per Fraction (cGy) 266 ARIA Prescribed Total Dose (cGy) 3,458 ARIA 01/12/2019 2:16 PM CDT us Not In File Miscellaneous RADIATION ONCOLOGY ORD ERABLES Final Result ARIA documented in this encounter Visit Diagnoses Not on filedocumented in this encounter Care Teams Vision Care Associate Relationship Specialty Start Date End Date Ravi Smith MD PCP - General 11/04/17 09/27/21 Aft, Kianna Machado MD PhD [address] [place] [address] Surgeon Surgical Oncology 11/22/17 Santiago Gilbert MD [address] [place] [address] Executive Secretary Social Welfare Gastroenterology 11/22/17 Dmitry Sanderson MD [address] [place] [address] Referring Physician Colon and Rectal Surgery 12/03/1805/06 Abbi Ventura MD [address] [place] [address] [address] [place], [place] [id number] Medical Oncologist/Hat Checker Medical Oncology 12/03/18 Montse Thompson MD [address] [facility] [address] [place], [place] [id number] Consulting Physician Gynecologic Oncology 12/03/18 Lela Hardy MD PhD [address] [place] [address] [address] [place], [place] [id number] Radiation Oncologist Radiation Oncology 12/23/18 Aft, Kianna Machado MD PhD [address] [place] [address] [address] [place], [place] [id number] Surgeon Surgical Oncology 12/23/18 09/17/21 documented as of this encounter
--- OUTSIDE RECORDS SUMMARY | 2024-04-24 13:46 | XMS_ITS | Encounter Summary ---
Author Organization [facility] Address [address] [facility] [address] [place] [address] Phone Care Team Providers Care Sand And Gravel Plant Operator Name Role Phone Hugo Smith MD Primary Care Provider [phone] Aft, Tony Machado MD PhD Unavailable [phone] Santiago Gilbert MD Unavailable Reason for Visit * Reason Comments Follow-up Encounter Details Date Type Department Care Team (Late st Contact Info) Description 11/24/2018 2:00 PM CDT Office Visit 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 Gender Identity Not on file Sexual Orientation Not on file documented as of this encounter Last Filed Vital Signs Vital Sign Reading Time Taken Comments Blood Pressure 132/71 11/24/2018 1:41 PM CDT Pulse 79 11/24/2018 1:41 PM CDT Temperature 36.9 ??C (98.4 ??F) 11/24/2018 1:41 PM CD T Respiratory Rate 17 11/24/2018 1:41 PM CDT Oxygen Saturation 93% 11/24/2018 1:41 PM CDT Inhaled Oxygen Concentration - - Weight 104.1 kg (229 lb 8 oz) 11/24/2018 1:41 PM CDT Height 175.3 cm (5' 9 ) 11/24/2018 1:41 PM CDT Body Mass Index 33.89 11/24/2018 1:41 PM CDT documented in this encounter Progress Notes * Montse Thompson MD - 11/24/2018 12:00 AM CDT PATIENT: ALEAH AGUILAR : 1955 FARHAT: 11/24/2018 REASON FOR VISIT: Preoperative visit for TLH/BSO secondary to BRCA2 mutation carrier as well as an YRN-NOS with a history of cryotherapy. HISTORY OF PRESENT ILLNESS: Ms. Aguilar is a gaviota 63-year-old female, who was [...] with an endometrial stripe of 3 mm. In the interim, the patient also has had a re-excision of a breast biopsy cavity on 11/11/[address] Gay. The pathology from this demonstrates no evidence of residual invasive carcinoma and only showed an incidental intraductal papilloma. The patient overall feels well. She does complain of some fatigue. She has some mild changes in vision. She has shortness of breath with exertion. She also complains of diarrhea, depression, and moodchanges and hot flashes. Otherwise, she denies any pelvic pain, pelvic pressure, vaginal bleeding, vaginal discharge. PAST MEDICAL HISTORY: 1. Obesity with a BMI of 33.9 kg/m2. 2. Hypertension. 3. Hypercholesterolemia. 4. Anemia. 5. Pulmonary embolism. 6. Diabetes. 7. COPD. 8. Obstructive sleep apnea. 9. History of breast cancer. 10. History of colon cancer. PAST SURGICAL HISTORY: 1. Inguinal hernia repair in 1969. 2. Left lumpectomy in 2017. 3. Bladder suspension vaginally, but she does not recall the date. 4. D&E. 5. Tubal ligation in 1991. 6. Laparoscopic left hemicolectomy on 12/27/2017. MEDICATIONS: Please see Epic, but they are potassium chloride, Janumet, Trulicity, Xanax, Xarelto, amlodipine, atorvastatin, magnesium, hydrochlorothiazide, Breo, vitamins, biotin, and sertraline. ALLERGIES: Tetanus and oxaliplatin. 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 Her last menstrual cycle is unknown. She has a remote history of cryotherapy. She did take control pills for approximately 10 years. She never took any hormone replacement therapy. HEALTH MAINTENANCE: The patient's colonoscopy was approximately a year ago. Her last mammogram is unknown. She did havea bone density which was normal. SOCIAL HISTORY: She used to smoke a pack per day for 40 years and quit 3 years ago. She used to drink for approximately 30 years. She quit approximately 3 years ago. She denies any drug use. She is and presents today alone. FAMILY HISTORY: Remarkable for a father with prostate cancer at the age of 67, a sister who was diagnosed with pancreatic cancer at the age of 45. She has multiple maternal cousins who had breast cancer in their 50s. There is no family history of ovarian, uterine, colon, kidney or bladder cancer. The patient herself does have colon cancer. REVIEW OF SYSTEMS: A 24-point review of systems is as noted above. PHYSICAL EXAM: General Appearance: The patient is a well-developed, well-nourished female in no acute distress. Vital Signs: Her blood pressure is 132/71. Pulse is 79. Respirations are 17. Her temperature is 36.9. Her weight is 229 pounds. Her pulse ox is 93% on room air. HEENT: Atraumatic, normocephalic, PERRLA, EOMI, EENT: Within normal limits. Neck is supple, withoutthyromegaly or JVD. LN Survey: No supraclavicular, inguinal, or femoral lymphadenopathy. Lungs: Clear to auscultation bilaterally. Heart: Regular rate and rhythm. Positive S1/S2. Breasts: Deferred. Back: No CVA or paraspinal tenderness. Abdomen: Soft, nontender, nondistended. Normoactive bowel sounds. She has well- healed laparoscopic incisions as well as a midline incision from her laparoscopic hemicolectomy. Extremities: No clubbing, cyanosis, or edema. Neuro: The patient is awake, alert, and oriented x 3. Pelvic Exam: Deferred since it was just performed on 10/27/2018. ASSESSMENT AND PLAN: A 63-year-old female with a BRCA2 mutation carrier who presents today for discussion of risk-reducing surgery as well as having had a previous abnormal Pap smear. 1. BRCA2 mutation: The patient was made aware she is a good candidate for a diagnostic laparoscopy,possible robotic-assisted total laparoscopic hysterectomy versus an exploratory laparotomy, total abdominal hysterectomy, bilateral salpingo-oophorectomy. The patient would like to have risk reduction of her tubes and ovaries but also of her uterus and cervix due to the fact that she has a history of abnormal Pap smears. The patient therefore was consented for an exam under anesthesia, diagnosticlaparoscopy, robotic-assisted total laparoscopic hysterectomy, possible exploratory laparotomy, OCTAVIO, BSO, possible cystoscopy, other indicated procedures. The patient understands the risks include but not limited to bleeding, infection, damage to surrounding organs, blood vessels, and nerves. She understands there is a 1% risk of reoperation or unidentified injury. 2. Laboratories: The patient's CA-125 from 10/20/2017 was 12.3. 3. Pathology: The patient was given a copy of her pathology reports. 4. CPAP: The patient will go to CPAP. 5. Blood consent: This was also signed today. ELECTRONICALLY SIGNED - 11/25/2018 06:11 AM Montse Thompson M.D. Professor, Department of Obstetrics and Gynecology Division of Gynecologic Oncology [facility] PHT/[id number] cc: BIRDIE LEBLANC M.D. / TONY GAY MD / HUGO SMITH MD / / NICOLE LÓPEZ MD / MELIZA JENNINGS MD / / documented in this encounter Plan of Treatment Not on file documented as of this encounter Visit Diagnoses Diagnosis BRCA2 gene mutation positive in female- Primary Atypical glandular cells of undetermined significance (YRN) on cervical Pap smear documented in this encounter Care Teams Sand And Gravel Plant Operator Relationship Specialty Start Date End Date Hugo Smith MD PCP - General 11/04/17 09/27/21 Aft, Tony Machado MD PhD [address] [place] [address] Surgeon Surgical Oncology 11/22/17 Santiago Gilbert MD [address] [place] [address] Welder Assembler Gastroenterology 11/22/17 documented as of this encounter
--- OUTSIDE RECORDS SUMMARY | 2024-04-24 13:46 | XMS_ITS | Encounter Summary ---
Author Organization [facility] Address [address] [place] [address] Phone Care Team Providers Care Lapping Machine Tender Name Role Phone Ravi Smith MD Primary Care Provider [phone] Aft, Kianna Machado MD PhD Unavailable [phone] Santiago Gilbert MD Unavailable [phone] Dmitry Sanderson MD Unavailable [phone] Abbi Ventura MD Unavailable Montse Thompson MD Unavailable [phone] Encounter Details Date Type Department Care Team (Latest Contact Info) Description 12/03/2018 2:00 PM CDT Clinical Support [facility] Oncology [address] [place] [address] Malignant neoplasm of descending colon (CMS/HCC) Social [...] on file 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 Gender Identity Not on file Sexual Orientation Not on file documented as of this encounter Plan of Treatment Not on file documented as of this encounter Procedures Procedure Name Priority Date/Time Associated Diagnosis Comments DIFFERENTIAL AUTO STAT 12/03/2018 2:0 5 PM CDT Malignant neoplasm of descending colon (CMS/HCC) CBC WITH AUTO DIFFERENTIAL STAT 12/03/2018 2:05 PM CDT Malignant neoplasm of descending colon (CMS/HCC) MAGNESIUM STAT 12/03/2018 2:05 PM CDT Malignant neoplasm of descending colon (CMS/HCC) CEA STAT 12/03/2018 2:05 PM CDT Malignant neoplasm of descending colon (CMS/HCC) COMPREHENSIVE METABOLIC PANEL STAT 12/03/2018 2:05 PM CDT Malignant neoplasm of descending colon (CMS/HCC) documented in this encounter Results * Differential, auto (12/03/2018 2:05 PM CDT) Neutrophil abs 4.7 1.7 - 6.5 K/cumm [facility] Imm gran abs 0.0 0.0 - 0.1 K/cumm [facility] Lymphocyte abs 1.1 0.8 - 3.3 K[facility] Monocyte abs 0.4 0.2 - 0.8 K/cumm [facility] Eosinophil abs 0.3 0.0 - 0.5 K/cumm [facility] Basophil abs 0.0 0.0 - 0.1 K/cumm [facility] Neutrophil pct 70.5 % [facility] Comment: Interpretive Data Percent cell count reference ranges are not reported, since discordance with absolute values may lead to misinterpretation of CBC data. Current Interpretive Data was last revised on 2017. Imm gran pct 0.3 % [facility] Comment: Interpretive Data Percent cell count reference ranges are not reported, since discordance with absolute values may lead to misinterpretation of CBC data. Current Interpretive Data was last revised on 2017. Lymphocyte pct 17.1 % [facility] Comment: Interpretive Data Percent cell count reference ranges are not reported, since discordance with absolute values may lead to misinterpretation of CBC data. Current Interpretive Data was last revised on 2017. Monocyte pct 6.5 % [facility] Comment: Interpretive Data Percent cell count reference ranges are not reported, since discordance with absolute values may lead to misinterpretation of CBC data. Current Interpretive Data was last revised on 2017. Eosinophil pct 5.0 % [facility] Comment: Interpretive Data Percent cell count reference ranges are not reported, since discordance with absolute values may lead to misinterpretation of CBC data. Current Interpretive Data was last revised on 2017. Basophil pct 0.6 % [facility] Comment: Interpretive Data Percent cell count reference ranges are not reported, since discordance with absolute values may lead to misinterpretation of CBC data. Current Interpretive Data was last revised on 2017. Blood specimen (specimen) 12/03/2018 2:05 PM CDT 12/03/2018 2:05 PM CDT us Abbi Ventura MD LAB BLOOD ORDERABLES Final Resul t [facility] Department [place] [address] * (ABNORMAL) CBC with auto differential (12/03/2018 2:05 PM CDT) WBC 6.6 3.8 - 9.9 K/cumm [facility] Hgb 10.4(L) 11.9 - 15.5 g/dL [facility] Hct 31.6(L) 35.6 - 45.5 % [facility] Plt 150 150 - 400 K/cumm [facility] MPV 9.0(L) 9.1 - 12.3 fL [facility] RBC 3.41(L) 3.90 - 5.20 M/cumm [facility] MCV 92.7 81.3 - 96.4 fL [facility] MCH 30.5 27.1 - 33.3 pg [facility] MCHC 32.9 32.3 - 35.7 g/dL [facility] RDW CV 12.7 11.1 - 14.9 % [facility] RDW SD 42.9 35.7 - 48.1 fL [facility] NRBC abs 0.00 0.00 - 0.01 K/cumm [facility] Blood specimen (specimen) 12/03/2018 2:05 PM CDT 12/03/2018 2:05 PM CDT us Abbi Ventura MD LAB BLOOD ORDERABLES Final Resul t [facility] Department [place] [address] * Comprehensive metabolic panel (12/03/2018 2:05 PM CDT) Sodium 139 135 - 145 mmol/L [facility] Potassium, pl 4.2 3.3 - 4.9 mmol/L [facility] Chloride 104 97 - 110 mmol/L [facility] CO2 28 22 - 32 mmol/L [facility] Anion gap 8 2 - 15 mmol/L [facility] BUN 21 8 - 25 mg/dL [facility] Creatinine 1.04 0.60 - 1.10 mg/dL [facility] Glucose 143 70 - 199 mg/dL [facility] Comment: Interpretive Data Fasting glucose [...] 2017. Calcium 9.7 8.5 - 10.3 mg/dL [facility] Bilirubin, total 0.2 0.1 - 1.2 mg/dL [facility] Protein, pl 6.8 6.5 - 8.5 g/dL [facility] Albumin 4.1 3.5 - 5.0 g/dL [facility] Alk phos 72 40 - 130 Units/L [facility] ALT 14 7 - 45 Units/L [facility] AST 19 10 - 45 Units/L [facility] Blood specimen (specimen) 12/03/2018 2:05 PM CDT 12/03/2018 2:05 PM CDT Abbi Ventura MD LAB BLOOD ORDERABLES Final Resul t Performing Organization Address [facility] de Phone Number [facility] [place] [address] * Magnesium (12/03/2018 2:05 PM CDT) Magnesium 1.9 1.4 - 2.5 mg/dL [facility] Blood specimen (specimen) 12/03/2018 2:05 PM CDT 12/03/2018 2:05 PM CDT Abbi Ventura MD LAB BLOOD ORDERABLES Final Resul t Performing Organization Address [facility] de Phone Number [facility] Department [place] [address] * CEA (12/03/2018 2:05 PM CDT) CEA 2.7 <=5.0 ng/mL [facility] Comment: Interpretative Data: Reference Range: Non-Smokers: 0.0 - 5.0 ng/mL Smokers: 0.0 ? 6.5 ng/mL This test was developed and its performance characteristics determined by the [facility] in a manner consistent with CLIA requirements. This test has not been cleared or approved by the U.S. Food and Drug Administration. Current interpretive data was last revised 2018. Blood specimen (specimen) 12/03/2018 2:05 PM CDT 12/03/2018 3:48 PM CDT us Abbi Ventura MD LAB BLOOD ORDERABLES Final Resul t [facility] Department [place] [address] documented in this encounter Visit Diagnoses Diagnosis 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) Malignant neoplasm of descending colon documented in this encounter Orders Appointment Requests Count Last Ordered Date Fi rst Ordered Date ONCBCN LAB APPOINTMENT 1 12/03/2018 documented in this encounter Care Teams Lapping Machine Tender Relationship Specialty Start Date End Date Ravi Smith MD PCP - General 11/04/17 09/27/21 Aft, Kianna Machado MD PhD [address] [place] [address] Surgeon Surgical Oncology 11/22/17 Santiago Gilbert MD [address] [place] [address] Financial Coach Gastroenterology 11/22/17 Dmitry Sanderson MD [address] [place] [address] Referring Physician Colon and Rectal Surgery 12/03/1805/06 Abbi Ventura MD [address] [place] [address] Medical Oncologist/Marketing/Sales Person Medical Oncology 12/03/18 Montse Thompson MD [address] [place] [address] Consulting Physician Gynecologic Oncology 12/03/18 documented as of this encounter
--- OUTSIDE RECORDS SUMMARY | 2024-04-24 13:46 | XMS_ITS | Encounter Summary ---
Author Organization [facility] Healthcare Address [address] [place] [address] Care Team Providers Care Machine Veneer Repairer Name Role Phone Ravi Smith MD Primary Care Provider [phone] Aft, Kianna Machado MD PhD Unavailable [phone] Santiago Gilbert MD Unavailable [phone] Dmitry Sanderson MD Unavailable [phone] Abbi Ventura MD Unavailable Montse Thompson MD Unavailable [phone] Lela Hardy MD PhD Unavailable Aft, Kianna Machado MD PhD Unavailable [phone] Encounter Details Date Type Department Care Team (Late st Contact Info) Description 01/08/2019 Orders Only RAD ONC TREATMENTS Miscellaneous, Not [...] on file 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 Gender Identity Not on file Sexual Orientation Not on file documented as of this encounter Plan of Treatment Not on file documented as of this encounter Procedures Procedure Name Priority Date/Time Associated Diagnosis Comments RAD ONC ARIA SESSION SUMMARY 01/08/2019 2:29 PM CDT documented in this encounter Results * RAD ONC ARIA SESSION SUMMARY (01/08/2019 2:29 PM CDT) Course Name C1 L BRS MD 2018 ARIA Course Plan Date 12/26/2018 4:45 PM ARIA Elapsed Days 1 ARIA Treatment Start Date 01/07/2019 ARIA Treatment Site [place] DPV ARIA Dose Given To Date (cGy) 532 ARIA Session Dosage Given (cGy) 266 ARIA Plan ID L BREAST ARIA Fractions Treated 2 ARIA Prescribed Dose Per Fraction (cGy) 266 ARIA Prescribed Total Dose (cGy) 4,256 ARIA 01/08/2019 2:29 PM CDT us Not In File Miscellaneous RADIATION ONCOLOGY ORD ERABLES Final Result ARIA documented in this encounter Visit Diagnoses Not on filedocumented in this encounter Care Teams Machine Veneer Repairer Relationship Specialty Start Date End Date Ravi Smith MD PCP - General 11/04/17 09/27/21 Aft, Kianna Machado MD PhD [address] [place] [address] Surgeon Surgical Oncology 11/22/17 Santiago Gilbert MD [address] [place] [address] Ultrasound Supervisor Gastroenterology 11/22/17 Dmitry Sanderson MD [address] [place] [address] Referring Physician Colon and Rectal Surgery 12/03/1805/06 Abbi Ventura MD [address] [facility] [address] [place], [place] [id number] Medical Oncologist/Hat Maker Medical Oncology 12/03/18 Montse Thompson MD [address] [facility] [address] [place] [address] Consulting Physician Gynecologic Oncology 12/03/18 Lela Hardy MD PhD [address] [facility] [address] [place] [address] Radiation Oncologist Radiation Oncology 12/23/18 Aft, Kianna Machado MD PhD [address] [facility] [address] [place], [place] [address] Surgeon Surgical Oncology 12/23/18 09/17/21 documented as of this encounter
--- OUTSIDE RECORDS SUMMARY | 2024-04-24 13:46 | XMS_ITS | Encounter Summary ---
Author Organization [facility] Healthcare Address [address] [place] [address] Care Team Providers Care Data Security Analyst Name Role Phone Ravi Smith MD Primary Care Provider [phone] Aft, Kianna Machado MD PhD Unavailable [phone] Santiago Gilbert MD Unavailable [phone] Dmitry Sanderson MD Unavailable [phone] Abbi Ventura MD Unavailable Montse Thompson MD Unavailable [phone] Lela Hardy MD PhD Unavailable [phone] Aft, Kianna Machado MD PhD Unavailable [phone] Encounter Details Date Type Department Care Team (Late st Contact Info) Description 01/08/2019 2:15 PM CDT Treatment [facility] Radiation Oncology at 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 Gender Identity Not on file Sexual Orientation Not on file documented as of this encounter Plan of Treatment Not on file documented as of this encounter Visit Diagnoses Not on filedocumented in this encounter Care Teams Data Security Analyst Relationship Specialty Start Date End Date Ravi Smith MD PCP - General 11/04/17 09/27/21 AfKianna simpson MD PhD [address] [place] [address] Surgeon Surgical Oncology 11/22/17 Santiago Gilbert MD [address] [place] [address] Order Runner Gastroenterology 11/22/17 Dmitry Sanderson MD [address] [place] [address] Referring Physician Colon and Rectal Surgery 12/03/1805/06 Abbi Ventura MD [address] [place] [address] [address] [place] [address] Medical Oncologist/Hand Shoes Sewer Medical Oncology 12/03/18 Montse Thompson MD [address] [facility] [address] [place], [place] [address] Consulting Physician Gynecologic Oncology 12/03/18 Lela Hardy MD PhD [address] [place] [address] [address] [place] [address] Radiation Oncologist Radiation Oncology 12/23/18 Kianna Bunch MD PhD [address] [facility] [address] [place] [address] Surgeon Surgical Oncology 12/23/18 09/17/21 documented as of this encounter
--- OUTSIDE RECORDS SUMMARY | 2024-04-24 13:46 | XMS_ITS | Encounter Summary ---
Author Organization [facility] Address [address] [place] [address] Phone Care Team Providers Care Intelligence Agent Name Role Phone Ravi Smith MD Primary Care Provider [phone] Aft, Kianna Machado MD PhD Unavailable [phone] Santiago Gilbert MD Unavailable [phone] Reason for Visit * Reason Comments Post-op Encounter Details Date Type Department Care Team (Late st Contact Info) Description 12/01/2018 3:20 PM CDT Office Visit [facility] Surgery [address] [facility] [address] [place] [address] Aft, Kianna Machado MD PhD [address] [place] [address] Malignant neoplasm of upper-inner quadrant of left [...] file 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 Gender Identity Not on file Sexual Orientation Not on file documented as of this encounter Last Filed Vital Signs Vital Sign Reading Time Taken Comments Blood Pressure - - Pulse - - Temperature - - Respiratory Rate - - Oxygen Saturation - - Inhaled Oxygen Concentration - - Weight 103.9 kg (229 lb) 12/01/2018 3:45 PM CDT Height 175.3 cm (5' 9 ) 12/01/2018 3:45 PM CDT Body Mass Index 33.82 12/01/2018 3:45 PM CDT documented in this encounter Progress Notes * Kianna Bunch MD PhD - 12/01/2018 3:20 PM CDT Kianna Bunch M.D., Ph.D., [facility] Section of Surgical Oncology and Endocrinology [facility] of [address], [address], [place] [address] - NAME: Aleah Gerber : 1955 DATE: 12/03/18 CHIEF COMPLAINT: Post-op HISTORY OF PRESENT ILLNESS: The patient is a 63 y.o. female status post re- excision of a biopsy cavity The patient presents for her first postoperative visit. She reports that she is doing well. PHYSICAL EXAMINATION: The patient appears well. Her wound is healing nicely. There is no evidence of infection. PATHOLOGY: Diagnosis: A. ??Breast, left, re-excisional biopsy ? - No evidence of residual invasive carcinoma or ductal carcinoma in situ ? - Incidental intraductal papilloma with usual ductal hyperplasia, apocrine metaplasia and associated with microcalcifications - Prior surgical site changes - New surgical margin negative for malignancy ?? ASSESSMENT: Left breast PLAN: I have reviewed the pathology with the patient. This demonstrated no residual disease in the breast. I recommend she consult with a radiation oncologist. We will arrange for this appointment. I have instructed the patient on the care of her wounds. The patient will follow up in six months. She knows to call with questions. Kianna Bunch M.D. spice fumigator RA/em documented in this encounter Plan of Treatment Not on file documented as of this encounter Visit Diagnoses Diagnosis Malignant neoplasm of upper-inner quadrant of left breast in female, estrogen receptor negative (HCC)- Primary documented in this encounter Care Teams Intelligence Agent Relationship Specialty Start Date End Date Ravi Smith MD PCP - General 11/04/17 09/27/21 Kianna Bunch MD PhD [address] [place] [address] Surgeon Surgical Oncology 11/22/17 Santiago Gilbert MD [address] [place] [address] I O Psychologist Gastroenterology 11/22/17 documented as of this encounter
--- OUTSIDE RECORDS SUMMARY | 2024-04-24 13:46 | XMS_ITS | Encounter Summary ---
Author Organization [facility] Healthcare Address [address] [place] [address] Care Team Providers Care Event Av Operator Name Role Phone Ravi Smith MD Primary Care Provider [phone] Aft, Kianna Machado MD PhD Unavailable [phone] Santiago Gilbert MD Unavailable [phone] Dmitry Sanderson MD Unavailable [phone] Abbi Ventura MD Unavailable Montse Thompson MD Unavailable [phone] Lela Hardy MD PhD Unavailable [phone] Aft, Kianna Machado MD PhD Unavailable [phone] Encounter Details Date Type Department Care Team (Late st Contact Info) Description 12/25/2018 Telephone [facility] Radiation Oncology at [facility] [address] [place] [address] Tali Negron, KAM [address] [place], [place] [address] Social History Tobacco Use Types Packs/Day Years [...] file 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. Consent is signed today and orders are in. Patient is aware of location of Rad Onc [facility]. documented in this encounter Plan of Treatment Not on file documented as of this encounter Visit Diagnoses Not on filedocumented in this encounter Care Teams Event Av Operator Relationship Specialty Start Date End Date Ravi Smith MD PCP - General 11/04/17 09/27/21 Aft, Kianna Machado MD PhD [address] [place] [address] Surgeon Surgical Oncology 11/22/17 Santiago Gilbert MD [address] [place] [address] Raw Juice Weigher Gastroenterology 11/22/17 Dmitry Sanderson MD [address] [place] [address] Referring Physician Colon and Rectal Surgery 12/03/1805/06 Abbi Ventura MD [address] [place] [address] [address] [place] [address] Medical Oncologist/Video System Repairer Medical Oncology 12/03/18 Montse Thompson MD [address] [facility] [address] [place], [place] [address] Consulting Physician Gynecologic Oncology 12/03/18 Lela Hardy MD PhD [address] [facility] [address] [place], [place] [address] Radiation Oncologist Radiation Oncology 12/23/18 Aft, Kianna Machado MD PhD [address] [facility] [address] [place], [place] [address] Surgeon Surgical Oncology 12/23/18 09/17/21 documented as of this encounter
--- OUTSIDE RECORDS SUMMARY | 2024-04-24 13:46 | XMS_ITS | Encounter Summary ---
Author Organization [facility] Address [address] [place] [address] Phone Care Team Providers Care Sap Security Consultant Name Role Phone Ravi Smith MD Primary Care Provider [phone] Aft, Kianna Machado MD PhD Unavailable Santiago Gilbert MD Unavailable [phone] Dmitry Sanderson MD Unavailable [phone] Abbi Ventura MD Unavailable Montse Thompson MD Unavailable [phone] Lela Hardy MD PhD Unavailable [phone] Aft, Kianna Machado MD PhD Unavailable [phone] Reason for Visit * Reason Comments Port Flush Encounter Details Date Type Department Care Team (Latest Contact Info) Description 12/25/2018 8:30 AM CDT Clinical Support [facility] Oncology [address] [place] [address] Dehydration (Primary Dx); Malignant neoplasm of descending colon (CMS/HCC); Malignant neoplasm of upper-inner quadrant of left [...] on file 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 Gender Identity Not on file Sexual Orientation Not on file documented as of this encounter Plan of Treatment Not on file documented as of this encounter Visit Diagnoses Diagnosis Dehydration- Primary 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) Malignant neoplasm 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, estrogen receptor negative (HCC) documented in this encounter Administered Medications Inactive Administered Medications - up to 3 most recent administrations Medication Order MAR Action Action Date Dose Rate Site heparin 100 unit/mL injection 500 Units 500 Units (5 mL), IV flush, As needed, Patients with ports only, instill prior to decanulation, Starting on Bonnie 12/25/18 at 1106, Indications: Maintain Patency of Indwelling Vascular CatheterIndications:Maintain Patency of Indwelling Vascular Catheter Given 12/25/2018 11:08 AM CDT 500 Units sodium chloride 0.9% flush 10 mL 10 mL, intravenous, As needed, line care, Flush volume based on line type and size. Flush before and after use., Starting on Bonnie 12/25/18 at 1106Indications:Dehydration,Ma lignant neoplasm of descending colon (CMS/HCC) (HCC),Malignant neoplasm of upper-inner quadrant of left breast in female, estrogen receptor negative (HCC) Given 12/25/2018 11:08 AM CDT 10 mL documented in this encounter Care Teams Sap Security Consultant Relationship Specialty Start Date End Date Ravi Smith MD PCP - General 11/04/17 09/27/21 Aft, Kianna Machado MD PhD [address] [place] [address] Surgeon Surgical Oncology 11/22/17 Santiago Gilbert MD [address] [place] [address] Insurance Counselor Gastroenterology 11/22/17 Dmitry Sadnerson MD [address] [place] [address] Referring Physician Colon and Rectal Surgery 12/03/1805/06 Abbi Ventura MD [address] [place] [address] [address] [place] [address] Medical Oncologist/Wearing Apparel Presser Medical Oncology 12/03/18 Montse Thompson MD [address] [place] [address] [address] [place] [address] Consulting Physician Gynecologic Oncology 12/03/18 Lela Hardy MD PhD [address] [place] [address] [address] [place] [address] Radiation Oncologist Radiation Oncology 12/23/18 Aft, Kianna Machado MD PhD [address] [place] [address] [address] [place] [address] Surgeon Surgical Oncology 12/23/18 09/17/21 documented as of this encounter
--- OUTSIDE RECORDS SUMMARY | 2024-04-24 13:46 | XMS_ITS | Encounter Summary ---
Author Organization [facility] Healthcare Address [address] [place] [address] Care Team Providers Care High Value Associate Name Role Phone Ravi Smith MD Primary Care Provider [phone] Aft, Kianna Machado MD PhD Unavailable [phone] Santiago Gilbert MD Unavailable [phone] Dmitry Sanderson MD Unavailable [phone] Abbi Ventura MD Unavailable Montse Thompson MD Unavailable Lela Hardy MD PhD Unavailable Aft, Kianna Machado MD PhD Unavailable [phone] Encounter Details Date Type Department Care Team (Late st Contact Info) Description 12/26/2018 4:00 PM CDT Treatment [facility] Radiation Oncology [address] [place] [address] Advanced Medicine [facility] [place] [address] Lela Hardy MD PhD [address] 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 Gender Identity Not on file Sexual Orientation Not on file documented as of this encounter Discharge Disposition Disposition Code Departure Means Destination Discharge to home or self care documented in this encounter Plan of Treatment Not on file documented as of this encounter Visit Diagnoses Not on filedocumented in this encounter Care Teams High Value Associate Relationship Specialty Start Date End Date Ravi Smith MD PCP - General 11/04/17 09/27/21 Aft, Kianna Machado MD PhD [address] [place] [address] Surgeon Surgical Oncology 11/22/17 Santiago Gilbert MD [address] [place] [address] Dry Charge Process Attendant Gastroenterology 11/22/17 Dmitry Sanderson MD [address] [place] [address] Referring Physician Colon and Rectal Surgery 12/03/1805/06 Abbi Ventura MD [address] [facility] [address] [place] [address] Medical Oncologist/Grazing Aide Medical Oncology 12/03/18 Montse Thompson MD [address] [place] [address] Consulting Physician Gynecologic Oncology 12/03/18 Lela Hardy MD PhD [address] [facility] [address] [place] [address] Radiation Oncologist Radiation Oncology 12/23/18 Aft, Kianna Machado MD PhD [address] [facility] [address] [place] [address] Surgeon Surgical Oncology 12/23/18 09/17/21 documented as of this encounter
--- OUTSIDE RECORDS SUMMARY | 2024-04-24 13:46 | XMS_ITS | Encounter Summary ---
Author Organization [facility] Healthcare Address [address] [place] [address] Care Team Providers Care Rehab Assistant Name Role Phone Ravi Smtih MD Primary Care Provider [phone] Aft, Kianna Machado MD PhD Unavailable [phone] Santiago Gilbert MD Unavailable Dmitry Sanderson MD Unavailable [phone] Abbi Ventura MD Unavailable Montse Thompson MD Unavailable [phone] Encounter Details Date Type Department Care Team (Latest Contact Info) Description 12/08/2018 4:29 PM CDT - 12/08/2018 11:59 PM CDT Hospital Encounter [facility] [address] [place] [address] Discharge Disposition: Discharge to home or self [...] file 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 ??There will be no report generated by a [facility]iologist. Narrative [facility] - 12/08/2018 4:29 PM CDT EXAMINATION: ??Images For Reference Purposes Only us Lela Hardy MD PhD IMG CT PROCEDURES Final Result [facility] documented in this encounter Visit Diagnoses Not on filedocumented in this encounter Care Teams Rehab Assistant Relationship Specialty Start Date End Date Ravi Smith MD PCP - General 11/04/17 09/27/21 AfKianna simpson MD PhD [address] [place] [address] Surgeon Surgical Oncology 11/22/17 Santiago Gilbert MD [address] [place] [address] Breakfast And Room Attendant Gastroenterology 11/22/17 Dmitry Sanderson MD [address] [place] [address] Referring Physician Colon and Rectal Surgery 12/03/1805/06 Abbi Ventura MD [address] [facility] [address] [place] [address] Medical Oncologist/Boiler Coverer Helper Medical Oncology 12/03/18 Montse Thompson MD [address] [facility] [address] [place] [address] Consulting Physician Gynecologic Oncology 12/03/18 documented as of this encounter
--- OUTSIDE RECORDS SUMMARY | 2024-04-24 13:46 | XMS_ITS | Encounter Summary ---
Author Organization [facility] Healthcare Address [address] [place] [address] Care Team Providers Care Radio Control Crane Operator Name Role Phone Ravi Smith MD Primary Care Provider [phone] Aft, Kianna Machado MD PhD Unavailable [phone] Santiago Gilbert MD Unavailable [phone] Dmitry Sanderson MD Unavailable [phone] Abbi Ventura MD Unavailable Montse Thompson MD Unavailable [phone] Lela Hardy MD PhD Unavailable [phone] Aft, Kianna Machado MD PhD Unavailable [phone] Encounter Details Date Type Department Care Team (Late st Contact Info) Description 01/13/2019 Orders Only RAD ONC TREATMENTS Miscellaneous, Not [...] on file 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 Gender Identity Not on file Sexual Orientation Not on file documented as of this encounter Plan of Treatment Not on file documented as of this encounter Procedures Procedure Name Priority Date/Time Associated Diagnosis Comments RAD ONC ARIA SESSION SUMMARY 01/13/2019 10:18 AM CDT documented in this encounter Results * RAD ONC ARIA SESSION SUMMARY (01/13/2019 10:18 AM CDT) Course Name C1 L BRS UT 2018 ARIA Course Plan Date 12/26/2018 4:45 PM ARIA Elapsed Days 6 ARIA Treatment Start Date 01/07/2019 ARIA Treatment Site REVELES DPV ARIA Dose Given To Date (cGy) 1,330 ARIA Session Dosage Given (cGy) 266 ARIA Plan ID RESCAN TANGS ARIA Fractions Treated 2 ARIA Prescribed Dose Per Fraction (cGy) 266 ARIA Prescribed Total Dose (cGy) 3,458 ARIA 01/13/2019 10:1 8 AM CDT us Not In File Miscellaneous RADIATION ONCOLOGY ORD ERABLES Final Result ARIA documented in this encounter Visit Diagnoses Not on filedocumented in this encounter Care Teams Radio Control Crane Operator Relationship Specialty Start Date End Date Ravi Smith MD PCP - General 11/04/17 09/27/21 Aft, Kianna Machado MD PhD [address] [place] [address] Surgeon Surgical Oncology 11/22/17 Santiago Gilbert MD [address] [place] [address] Technical Operator Gastroenterology 11/22/17 Dmitry Sanderson MD [address] [place] [address] Referring Physician Colon and Rectal Surgery 12/03/1805/06 Abbi Ventura MD [address] [place] [address] [address] [place], [place] [address] Medical Oncologist/Steam Room Attendant Medical Oncology 12/03/18 Montse Thompson MD [address] [facility] [address] [place], [place] [address] Consulting Physician Gynecologic Oncology 12/03/18 Leal Hardy MD PhD [address] [place] [address] [address] [place], [place] [address] Radiation Oncologist Radiation Oncology 12/23/18 Aft, Kianna Machado MD PhD [address] [place] [address] [address] [place], [place] [address] Surgeon Surgical Oncology 12/23/18 09/17/21 documented as of this encounter
--- OUTSIDE RECORDS SUMMARY | 2024-04-24 13:46 | XMS_ITS | Encounter Summary ---
Author Organization [facility] of [facility] Address [address] [place] [address] Phone Care Team Providers Care Floor Plan Adjuster Name Role Phone Ravi Smith MD Primary Care Provider [phone] Aft, Kianna Machado MD PhD Unavailable Santiago Gilbert MD Unavailable [phone] Dmitry Sanderson MD Unavailable [phone] Abbi Ventura MD Unavailable Montse Thompson MD Unavailable [phone] Lela Hardy MD PhD Unavailable [phone] Aft, Kianna Machado MD PhD Unavailable [phone] Trena Obando MD Unavailable [phone] Dat Benito DO Primary Care Provider [phone] Encounter Details Date Type Department Care Team (Latest Contact Info) Description 12/10/2018 Orders Only [facility] Scanning, Provider [...] on file 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 Gender Identity Not on file Sexual Orientation Not on file documented as of this encounter Plan of Treatment Not on file documented as of this encounter Procedures Procedure Name Priority Date/Time Associated Diagnosis Comments SCAN - LABS 12/10/2018 documented in this encounter Results * SCAN - LABS (12/10/2018) us Provider Scanning Edited Result - Final documented in this encounter Visit Diagnoses Not on filedocumented in this encounter Additional Health Concerns Infection Onset Date Last Indicated Resolved Time COVID: Suspected 05/02/2023 05/02/2023 05/02/2023 3:37 PM ENGINE[employer] INTER[employer] documented as of this encounter Care Teams Floor Plan Adjuster Relationship Specialty Start Date End Date Ravi Smith MD PCP - General 11/04/17 09/27/21 Dat Benito DO [address] [place] [address] PCP - General Internal Medicine 09/28/21 Aft, Kianna Machado MD PhD [address] [place] [address] Surgeon Surgical Oncology 11/22/17 Santiago Gilbert MD [address] [place] [address] Windlace Machine Operator Gastroenterology 11/22/17 Dmitry Sanderson MD [address] [place] [address] Referring Physician Colon and Rectal Surgery 12/03/1805/06 Abbi Ventura MD [address] [facility] [address] [place] [address] Medical Oncologist/Art Consultant Medical Oncology 12/03/18 Montse Thompson MD [address] [facility] [address] [place], [place] [address] Consulting Physician Gynecologic Oncology 12/03/18 Lela Hardy MD PhD [address] [place] [address] [address] [place] [address] Radiation Oncologist Radiation Oncology 12/23/18 AfKianna simpson MD PhD [address] [facility] [address] [place] [address] Surgeon Surgical Oncology 12/23/18 09/17/21 Trena Obando MD [address] [place], [place] [id number] Consulting Physician Neurology 09/18/21 documented as of this encounter
--- OUTSIDE RECORDS SUMMARY | 2024-04-24 13:46 | XMS_ITS | Encounter Summary ---
Author Organization [facility] Address [address] [place] [address] Care Team Providers Care Rope Laying Machine Operator Name Role Phone Ravi Smith MD Primary Care Provider [phone] Aft, Kianna Machado MD PhD Unavailable [phone] Santiago Gilbert MD Unavailable [phone] Dmitry Sanderson MD Unavailable [phone] Abbi Ventura MD Unavailable Montse Thompson MD Unavailable [phone] Lela Hardy MD PhD Unavailable Aft, Kianna Machado MD PhD Unavailable [phone] Encounter Details Date Type Department Care Team (Late st Contact Info) Description 01/07/2019 2:00 PM CDT Treatment 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 Gender Identity Not on file Sexual Orientation Not on file documented as of this encounter Plan of Treatment Not on file documented as of this encounter Visit Diagnoses Not on filedocumented in this encounter Care Teams Rope Laying Machine Operator Relationship Specialty Start Date End Date Ravi Smith MD PCP - General 11/04/17 09/27/21 Aft, Kianna Machado MD PhD [address] [place] [address] Surgeon Surgical Oncology 11/22/17 Santiago Gilbert MD [address] [place] [address] Splicing Supervisor Gastroenterology 11/22/17 Dmitry Sanderson MD [address] [place] [address] Referring Physician Colon and Rectal Surgery 12/03/1805/06 Abbi Ventura [facility] [address] [place] [address] Medical Oncologist/Enrollment Management Vice President Medical Oncology 12/03/18 Montse Thompson MD [facility] [address] [place] [address] Consulting Physician Gynecologic Oncology 12/03/18 Lela Hardy MD PhD [address] [place], [place] [id number] Radiation Oncologist Radiation Oncology 12/23/18 Aft, Kianna Machado MD PhD [address] [facility] [address] [place], [place] [id number] Surgeon Surgical Oncology 12/23/18 09/17/21 documented as of this encounter
--- OUTSIDE RECORDS SUMMARY | 2024-04-24 13:46 | XMS_ITS | Encounter Summary ---
Author Organization [facility] of [facility] Address [address] [place] [address] Phone Care Team Providers Care Noc Analyst Name Role Phone Ravi Smith MD Primary Care Provider [phone] Aft, Kianna Machado MD PhD Unavailable [phone] Santiago Gilbert MD Unavailable [phone] Encounter Details Date Type Department Care Team (Late st Contact Info) Description 11/20/2018 Telephone [facility] Obstetrics and Gynecology [facility] Advanced Medicine [address] [place] [address] [address] Evon Arreola RN Social History Tobacco Use [...] on file 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 US scheduled for 12:15 prior to PHT appt. documented in this encounter Plan of Treatment Not on file documented as of this encounter Visit Diagnoses Not on filedocumented in this encounter Care Teams Noc Analyst Relationship Specialty Start Date End Date Ravi Smith MD PCP - General 11/04/17 09/27/21 Aft, Kianna Machado MD PhD [address] [place] [address] Surgeon Surgical Oncology 11/22/17 Santiago Gilbert MD [address] [place] [address] Clinical Science Liaison Gastroenterology 11/22/17 documented as of this encounter
--- OUTSIDE RECORDS SUMMARY | 2024-04-24 13:46 | XMS_ITS | Encounter Summary ---
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
--- OUTSIDE RECORDS SUMMARY | 2024-04-24 13:46 | XMS_ITS | Encounter Summary ---
Author Organization [facility] Healthcare Address [address] [place] [address] Care Team Providers Care Sr. Director Name Role Phone Ravi Smith MD Primary Care Provider [phone] Aft, Kianna Machado MD PhD Unavailable [phone] Santiago Gilbert MD Unavailable [phone] Dmitry Sanderson MD Unavailable [phone] Abbi Ventura MD Unavailable Montse Thompson MD Unavailable [phone] Lela Hardy MD PhD Unavailable [phone] AfKianna simpson MD PhD Unavailable [phone] Reason for Visit * Reason Comments Consult * Consultation (Routine) - Closed Specialty Diagnoses / Procedures Referred By Contronny simpson Referred To Contact Radiation Oncology Diagnoses History of breast cancer Aft, Kianna aMchado MD PhD Phone: tel: fax: [facility] Radiation Oncology [address] [facility] [place] [address] Phone: tel: fax: Referral ID Status Reason Start Date Expiration Date V isits Requested Visits Authorized [id number] Closed Specialty Services Required 12/01/2018 06/11/2020 1 1 Encounter Details Date Type Department Care Team (Late st Contact Info) Description 12/25/2018 9:00 AM CDT Consult [facility] Radiation Oncology at [facility] [place] [address] [place] [address] Lela Hardy MD PhD [address] [facility] [address] [place] [address] Malignant neoplasm of upper-inner quadrant of left breast in female, 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) (Primary Dx); History of breast cancer Social History Tobacco Use Types Packs/Day [...] on file 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 Gender Identity Not on file Sexual Orientation Not on file documented as of this encounter Last Filed Vital Signs Vital Sign Reading Time Taken Comments Blood Pressure 126/76 12/25/2018 9:12 AM CDT Pulse 91 12/25/2018 9:12 AM CDT Temperature 37 ??C (98.6 ??F) 12/25/2018 9:12 AM CDT Respiratory Rate - - Oxygen Saturation - - Inhaled Oxygen Concentration - - Weight 104.4 kg (230 lb 3.2 oz) 12/25/2018 9:12 AM CDT Height 175.3 cm (5' 9 ) 12/25/2018 9:12 AM CDT Body Mass Index 33.99 12/25/2018 9:12 AM CDT documented in this encounter Consult Notes * Roger Dorsey MD - 12/25/2018 9:00 AM CDT Radiation Oncologist: Lela Hardy MD PhD Referring Physician: Patient Care Team: Dmitry Sanderson MD as Referring Physician (Colon and Rectal Surgery) Kainna Bunch MD PhD as Referring Physician (Surgical Oncology) Date of Service: 12/25/2018 RADIATION ONCOLOGY CONSULT NOTE Cancer Staging Malignant neoplasm of upper-inner quadrant of left breast in female, 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) Staging form: Breast, AJCC 8th Edition - Pathologic: Stage IIA (pT2, pN0(sn), cM0, G3, ER-, AL-, HER2-) - Signed by Roger Dorsey MD on 12/23/2018 - Clinical: Stage IIB (cT2, cN0, cM0, G3, ER-, AL-, HER2-) - Signed by Lela Hardy MD PhD on01/01/2019 IDENTIFYING DATA: Aleah Gerber is a 63 y.o. 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 She is status post breast conserving surgery and sentinel lymph node resection, pT2N0, stage IIA. Surgical margins wereinitially positive and 0/3 lymph nodes were positive, s/p re-excision with no residual malignancy. The patient is being seen for discussion of adjuvant breast radiation therapy. HISTORY OF PRESENT ILLNESS: Ms. Gerber's history began when she began noticing a change in the caliber of her stool March. She underwent a colonoscopy on 10/22/2017 revealing a nonobstructing mass in the proximal descending colon with biopsy revealing adenocarcinoma. Staging CT on October 2017 revealed a 1.8 cm mass in the left breast and irregular wall thickening of 6 cm segment of the distal transverse colon. She underwent a diagnostic mammogram on 11/05/2017 revealing 1.8 cm spiculated mass in the 9 o'clock position of the left breast and no abnormal lymph nodes, with a core biopsy performed on 11/12/2017 revealing invasive ductal carcinoma, grade 3, triple negative. [facility] Genetic testing revealed a BRCA2 positivity, BRIP1 and NBN variant of uncertain significance. Regarding her colon cancer, she underwent a laparoscopic left hemicolectomy on 12/27/2017 with pathology revealing mucinous adenocarcinoma, 6.5 cm, pathologic T4bN0. Followed by adjuvant FOLFOX chemotherapy started on 02/06/2018, and she completed her 8th cycle on 05/21/2018. Regarding her breast cancer diagnosis, she underwent partial mastectomy and sentinel lymph node biopsy on 01/14/2018 with pathology revealing invasive ductal carcinoma, measuring 3.5 cm, grade 3, positive posterior margin 1 cm in length, DCIS grade 3, with 0/3 lymph nodes involved. She then completed chemotherapy for her colon cancer as above, and subsequently started adjuvant chemotherapy for her breast cancer with AC started on 06/25/2018 completing 4 cycles on 08/12/2018. Diagnostic mammogram on 08/11/18 was negative. Given her positive margin on her initial partial mastectomy, she underwentre-excision on 11/11/18 which showed no evidence of residual malignancy, but did show an incidental intraductal papilloma with new surgical margins negative for malignancy, with resection taken to the pec fascia. She is currently scheduled to undergo a prophylactic OCTAVIO/BSO given her BRCA-2 positivity and risk of gynecologic malignancies on 01/06/19 however she would like to hold off on prophylactic bilateral mastectomy until all of her breast and colon cancer therapy is completed. Today, she is healing well from her most recent re-excision. She denies drainage, fevers, or chills. She has ongoing low back pain bilaterally with pain radiating down right leg down to knee. She also reports shortness of breath which worsened during chemo but has improved lately. She is scheduled to see pulmonology in February. She is also planning on going on vacation starting this Saturday until Jan 04. She has had no problems with infection, bleeding or seroma formation. She describes no problems with shoulder mobility or numbness in the arm. She has not observed any upper extremity edema. She denies any masses or changes in her breast or chest wall, headaches, vision changes, gait instability, cough, shortness of breath, nausea, abdominal pain, bone or joint pain. Denies pain or other complaints at present. 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 She underwent spontaneous menopause at age 57. She does not continue to get menopausal symptoms intermittently. Oral contraceptive use: approximately 15 years, having quit in the distant past. History of estrogen replacement therapy: none. 2 Para 2 with age of first delivery 25. PAST MEDICAL HISTORY: Past Medical History: Diagnosis Date ??? Anemia [...] (CMS/HCC) ??? DVT (deep vein thrombosis) in (CMS/HCC) 05/2017 with multiple Pulmonary Emboli ??? Former smoker Quit 2015 ??? History of blood clots ??? History of ileus 12/2017 ??? Hypercholesteremia ??? Hypertension ??? Lower extremity edema ??? Memory loss Some short-term memory loss ??? Obesity ??? Personal history of other medical treatment Hepatic steatosis ??? PONV (postoperative nausea and vomiting) ??? SOB (shortness of breath) ??? TIA (transient ischemic attack) 2007 ??? Vascular disease PAST SURGICAL HISTORY: Past Surgical History: Procedure Laterality Date ??? BLADDER SUSPENSION 2010 ??? BREAST BIOPSY Left 11/12/2017 ??? BREAST BIOPSY Right 2009 Benign ??? BREAST LUMPECTOMY 2017 ??? COLONOSCOPY 2017 ??? HEMICOLECTOMY Left 12/27/2017 Laparoscopic left hemicolectomy ??? HERNIA REPAIR s ??? INCONTINENCE SURGERY 2007 ??? INGUINAL HERNIA REPAIR Right 1969 ??? MASTECTOMY, PARTIAL Left 01/14/2018 Biopsy Breast Needle Localization partial mastectomy (L), Biopsy [place] Lymph Node With Lymphoscintigraphy (L), Insertion Port A Cath (R) with ultrasound and fluroscopy ??? PORTACATH PLACEMENT 01/2018 right upper chest ??? TUBAL LIGATION 1991 Family History: Cancer-related family history includes Liver cancer (age of onset: 80) in her maternal grandmother;Pancreatic cancer (age of onset: 40) in her sister; Prostate cancer (age of onset: 60) in her father. Social History: Social History Socioeconomic History ??? Marital status: Spouse name: Not on file ??? Number of children: Not on file ??? Years of education: Not on file ??? Highest education level: Not on file Tobacco Use ??? Smoking status: Former Smoker Packs/day: 1.00 Types: Cigarettes Start date: 1972 Last attempt to quit: 2014 Years since quittin.6 ??? Smokeless tobacco: Never Used Substance and Sexual Activity ??? Alcohol use: Not Currently Frequency: Monthly or less Comment: socially ??? Drug use: Never ??? Sexual activity: Defer CURRENT MEDICATIONS: Current Outpatient Medications: ??? acetaminophen (TYLENOL) 500 mg tablet ??? albuterol HFA (PROVENTIL HFA,VENTOLIN HFA,PROAIR HFA) 90 mcg/actuation inhaler ??? ALPRAZolam (XANAX) 0.25 mg tablet ??? atorvastatin (LIPITOR) 20 mg tablet ??? biotin 1 mg capsule ??? cholecalciferol (VITAMIN D3) 2,000 unit capsule ??? dulaglutide (TRULICITY) 0.75 mg/0.5 mL pen injector ??? fluticasone furoate-vilanterol (BREO ELLIPTA) 100-25 mcg/dose diskus inhaler ??? hydroCHLOROthiazide (HYDRODIURIL) 12.5 mg tablet ??? magnesium oxide 400 mg magnesium capsule ??? oxyCODONE (ROXICODONE) 5 mg immediate release tablet ??? potassium chloride ER (KLOR-CON,K-DUR) 10 mEq CR tablet ??? rivaroxaban (XARELTO) 20 mg tablet ??? sertraline (ZOLOFT) 50 mg tablet ??? sitaGLIPtin-metformin (JANUMET XR) 100-1,000 mg tablet, ER multiphase 24 hr. All medications were reviewed. ALLERGIES: Allergies Allergen Reactions ??? Tetanus Vaccines And Toxoid Swelling and Rash REVIEW OF SYSTEM: Except for the symptoms described above, the remainder of the review of systems is negative. Specifically, except as noted, when asked the patient expressed no complaints relative to constitutional (fever, weight loss), eyes, ears, nose, mouth, throat, neurologic, cardiovascular, pulmonary, breast,GI, , skin, musculoskeletal, endocrine, hematologic/lymphatic, or immunologic systems. PHYSICAL EXAMINATION: Vitals BP 126/76 Pulse 91 Temp 37 ??C (98.6 ??F) Ht 175.3 cm (5' 9 ) Wt 104.4 kg (230 lb 3.2 oz) BMI 33.99 kg/m?? ECO PAIN: 0 Physical Exam Constitutional: She is oriented to person, place, and time. She appears well- developed and well-nourished. HENT: Head: Normocephalic and atraumatic. Mouth/Throat: Oropharynx is clear and moist. Eyes: Conjunctivae are normal. Neck: Normal range of motion. Cardiovascular: Normal heart sounds. Pulmonary/Chest: Effort normal and breath sounds normal. Breast examination was performed in the seated and supine position Left breast: Partial mastectomy incision c/d/i without drainage with no overlying skin changes, no palpable masses Right breast: Breast appears normal with no overlying skin changes, no palpable masses No palpable axillary, supraclavicular, or infraclavicular lymphadenopathy Abdominal: She exhibits no distension. Musculoskeletal: Normal range of motion. Neurological: She is alert and oriented to person, place, and time. No sensory deficit. She exhibits normal muscle tone. Skin: Skin is warm and dry. Psychiatric: She has a normal mood and affect. Breast Cosmesis: excellent DIAGNOSTIC REPORTS REVIEWED: Imaging: I personally reviewed the imaging as per HPI. Laboratory/Pathology: I personally reviewed the laboratory and pathology values as per HPI. ASSESSMENT: 63 y.o. post menopausal female with a history of synchronous pT4bN0 colon adenocarcinoma status post hemicolectomy and adjuvant chemotherapy and a diagnosis of left upper inner quadrant breast invasive ductal carcinoma, [id number], ER negative, AL negative, HER-2 negative. She is status post breast con serving surgery and sentinel lymph node resection, pT2N0, stage IIA. Surgical margins were initially positive and 0/3 lymph nodes were involved, but she is also s/p re-excision with no residual malignancy, thus final margins are negative. She is being seen in routine consult for adjuvant radiation therapy for her breast cancer. PLAN: We discussed our recommendation for a course of left whole breast radiation with hypofractionation,plus a boost to the tumor bed for a total of 21 fractions. We discussed that radiation would be given with curative intent. We discussed that the goal of radiation would be to reduce her risk of recurrence and improve her odds of breast cancer survival. Of note, the patient is BRCA2 positive, but has declined prophylactic mastectomies after discussion with her surgeon. We discussed the logistics of radiation simulation and radiation treatment delivery. We reviewed the likely acute side effects and potential long-term complications which include but are not limited to skin irritation including erythema, desquamation, and fatigue, as well as late side effects such as skin fibrosis, radiation pneumonitis, risk of fracture and very low risk of secondary malignancy.The patient voiced understanding of all that was discussed and her questions were answered to her satisfaction. After reviewing her treatment options, the patient is interested in proceeding with radiation and informed consent was obtained. The patient will be scheduled for a simulation with treatment to [facility] thereafter. Patient prefers treatment at [facility]. We would recommend delaying her prophylactic OCTAVIO/BSO until after all of her breast cancer therapy, including radiation are completed. RAD ONC PAIN PLAN: The patient is not currently having any pain that requires changes in pain management. Roger Dorsey MD Resident Physician Radiation Oncology Cosigned by Lela Hardy MD PhD at 01/01/2019 9:30 PM CDT Associated attestation - Lela Hardy MD PhD - 01/01/2019 9:30 PM CDT I have confirmed the history and performed an examination. I have personally reviewed the chart, including the pathology report and personally reviewed the imaging. I discussed the case with the resident and agree with the findings and plan as documented in the resident's note. Thank you for the consultation request. documented in this encounter Nursing Notes * Tali Negron RN - 12/25/2018 9:00 AM CDT Medical Oncologist: Lorenzo Patient prefers treatment at [place] Prior radiation: NO Port: YES Pacemaker: NO MRI Questionnaire filled out: YES documented in this encounter Plan of Treatment Not on file documented as of this encounter Visit Diagnoses Diagnosis Malignant neoplasm of upper-inner quadrant of left breast in female, estrogen receptor negative (HCC)- Primary History of breast cancer Personal history of malignant neoplasm of breast documented in this encounter Orders Outpatient Referral Count Last Ordered Date Fir st Ordered Date AMB REFERRAL TO RADIATION ONCOLOGY 1 2018 documented in this encounter Care Teams Sr. Director Relationship Specialty Start Date End Date Ravi Smith MD PCP - General 11/04/17 09/27/21 Aft, Kianna Machado MD PhD [address] [place] [address] Surgeon Surgical Oncology 11/22/17 Santiago Gilbert MD [address] [place] [address] Transit Mix Operator Gastroenterology 11/22/17 Dmitry Sanderson MD [address] [place] [address] Referring Physician Colon and Rectal Surgery 12/03/1805/06 Abbi Ventura MD [address] [place] [address] [address] [place] [address] Medical Oncologist/Revenue Cycle Administrator Medical Oncology 12/03/18 Montse Thompson [facility] [address] [place] [address] Consulting Physician Gynecologic Oncology 12/03/18 Lela Hardy MD PhD [address] [place] [address] Radiation Oncologist Radiation Oncology 12/23/18 Aft, Kianna Machado MD PhD [address] [place] [address] [address] [place] [address] Surgeon Surgical Oncology 12/23/18 09/17/21 documented as of this encounter
--- OUTSIDE RECORDS SUMMARY | 2024-04-24 13:46 | XMS_ITS | Encounter Summary ---
Author Organization [facility] Healthcare Address [address] [place] [address] Care Team Providers Care Veterinary Technician Name Role Phone Ravi Smith MD Primary Care Provider [phone] Aft, Kianna Machado MD PhD Unavailable [phone] Santiago Gilbert MD Unavailable Encounter Details Date Type Department Care Team (Late st Contact Info) Description 01/06/2019 11:59 PM CDT Anesthesia Event [facility] Operating Room [address] [place] [id number] Deonna Roldan, ELEMENTARY ASSISTANT TEACHER [address] [facility] [phone] [place] [address] Anesthesia Record Procedure Summary Procedure Name Responsible Anesthesiologist Anesthesia Start Time Anesthesia Stop Time LAPAROSCOPY DIAGNOSTIC - OPERATIVE (canceled) Events No events on file. Meds * Agents No agents on file. * Blood No blood administrations on file. Lines, Drains, and Airways No LDAs on file. 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 female Procedure(s): LAPAROSCOPY DIAGNOSTIC - OPERATIVE XI HYSTERECTOMY - LAPAROSCOPIC ROBOTIC ASSISTED XI SALPINGO/OOPHORECTOMY - LAPAROSCOPIC ROBOTIC ASSISTED CYSTOSCOPY EXPLORATORY LAPAROTOMY Pre-Op Diagnosis Codes: * Malignant neoplasm of upper-inner quadrant of left breast in female, 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) [C50.212, Z17.1] * BRCA2 gene mutation positive in female [Z15.01, Z15.02, Z15.09] HISTORY HPI Aleah Gerber is a 63 y.o. female With Malignant neoplasm of upper-inner quadrant of left breast in female, 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) (C50.212, Z17.1) ?BRCA2 gene mutation positive in female (Z15.01, Z15.02, Z15.09)who is being evaluated prior to undergoing ??LAPAROSCOPY ??DIAGNOSTIC - OPERATIVE (Bilateral Abdomen) - 1.5 hours ?XI HYSTERECTOMY - LAPAROSCOPIC ROBOTIC ASSISTED (Bilateral Uterus) ?XI SALPINGO/OOPHORECTOMY - LAPAROSCOPIC ROBOTIC ASSISTED (Bilateral Uterus) ?CYSTOSCOPY (N/A Urethra) ?EXPLORATORY LAPAROTOMY (N/A Abdomen) Anesthesia type: General Past Medical History Neurological + TIA (2007) Number of TIA episodes: 1. Date of last TIA: 2017. + Dementia/mild cognitive impairment (Mild short term memory loss) Pertinent negatives: seizures; neuromuscular disease; CVA/stroke; CEA; ICA stenosis and carotid artery stent Cardiovascular + Hypertension + DVT/PE (Takes daily Xarelto for Lower extremity DVT / PE dx'd 2018) Number of DVT/PE episodes:1. Last VTE date: 2018. Pertinent negatives: CAD ; MT ; CABG ; valvular heart disease; valve replacement; atrial fibrillation; arrhythmia; pacemaker/ICD; PVD; negative for CHF; drug-eluting stent(s); bare metal stent(s) andcoronary angioplasty Respiratory + COPD (Stable COPD. Last use of rescue inhaler was 8 weeks ago) - emphysema. Dyspnea frequency: daily. Rescue inhaler use: 2 days/week or less. + Sleep apnea (VIOLETTE) (Pt reports PCP is wanting to do VIOLETTE testing in the near future.) Pertinent negatives: asthma; pulmonary hypertension; no O2 use outside the hospital and non-smoker Hepatic / Heme + Liver disease (History of History of hepatic steatosis) + History of anemia (Anemia 2/2 chemotherapy) - iron deficiency Pertinent negatives: history of thrombocytopenia and history of Jose Roberto positive Gastrointestinal Pertinent negatives: GERD and hiatal hernia Renal / Pertinent negatives: renal disease; dialysis and nephrolithiasis Musculoskeletal/Pain Pertinent negatives: chronic pain; chronic opioid use and previous treatment for opioid use disorder Endocrine / Other + Diabetes mellitus (Dx'd in [id number]. AM PBNT=765-609 mg/dl) - Diabetes type 2. Outpatient insulin use: none. Pt reported HgA1c: 6.7. Pt reported HgA1c date: 12/01/2018. + Obesity (BMI >30) + Cancer history Cancer type: History of left breast & colon cancer. Last chemotherapy was 08/14/2018. Pertinent negatives: thyroid disease; rheumatological disease and transplanted organ Functional Capacity Functional capacity: 4-6 METs Comments: Able to walk 2-3 blocks and climb 2 flights of stairs--no CP or SOB Review of Systems + SOB Pertinent negatives: productive cough; wheezing; recent cold/flu; fever; chest pain; palpitations; orthopnea; pedal edema; PND; heavy menses; Sickle Cell disease/trait; previous transfusion; transfusion reaction; melena/hematochezia; easy bruising; bleeding problems; syncope; dizziness; muscle weakness; chronic pain; numbness/tingling; hard of hearing; vision loss; heartburn; nausea; dysphagia; diarrhea; dentures/partials; chipped/loose teeth; abdominal pain; diaphoresis and no unexpected weight change PAT Summary and Plans Cardiac risk classification of planned procedure: intermediate cardiac risk. Preoperative assessment status: lab tests ordered. Initial preoperative evaluation discussed with: Herson Fraire MD Additional comments: Aleah Gerber is a 63 y.o. female who is being evaluated prior to undergoing an intermediate cardiac risk surgery. Revised Cardiac Risk Index factors are (none) for a total RCRIof 0 out of 6. Functional capacity is 4-6 METs. This patient has a history of VTE, is on chronic anticoagulation therapy, and is at moderate risk of recurrent VTE per 2012 ACCP criteria. The patient is on oral anticoagulation therapy with rivaroxaban (XARELTO) 72 ml/min. For this procedure and anesthetic, our [...] be used in the interim if acceptable. Surgeon;s office closed at time of CPAP visit. Will call preoperative recomendations to Surgeon in AM 12/02/2018 Obstructive sleep apnea (VIOLETTE) screening status is STOP-Bang=3 suggesting moderate risk for VIOLETTE, bicarbonate value pending. Blood bank needs for day of procedure: Type and Screen only Pending labs/tests include: CBC BMP T&S and urine C&S Pt given Chlorhexidine Scrub. 12/02/2018 Preoperative evaluation performed by Maria Elena Rodriguez NP on 12/01/18 at 4:51 PM. . Follow up note Labs reviewed and are significant for: Cr 1.26. Consistent with baseline between 0.82 - 1.27. Recommendations for Xarelto (re-reviewed with attending given sl lower CrCl) to be held for three days given to Rika by phone in surgeon's office. Awaiting urine culture. Surgeon's office reviews laboratory results independently. Follow-up completed by: Deonna Roldan NP on 12/02/18 at 11:22 AM Discussed with: Herson Fraire MD Follow up note 2 Labs reviewed and are significant for: Urine cx shows Less than 100,000 colonies/ml (clinically insignificant growth based on current clinical standards). Discussed with Rika in surgeon's office [id number]-- Surgeon's office to contact patient if repeat urine cx needed. Surgeon's office reviews laboratory results independently. CPAP process complete. Follow-up completed by: Lori Alarcon NP on 12/03/18 at 9:26 AM Patient Active Problem List Diagnosis ??? Malignant [...] undetermined significance (YRN) on cervical Pap smear Past Medical History: Diagnosis Date ??? Anemia ??? Anxiety ??? Asthma ??? At risk for sleep apnea Per assessment, STOP BANG=3. Pt reports her PCP wants to do a Sleep Study in the near future. ??? Breast cancer (CMS/HCC) 2018 left breasst cancer ??? Breast cancer (CMS/HCC) 2018 ??? Breast lump ??? Colon cancer (CMS/HCC) [...] (transient ischemic attack) 2007 ??? Vascular disease Past Surgical History: Procedure Laterality Date ??? BLADDER SUSPENSION 2010 ??? BREAST BIOPSY Left 11/12/2017 ??? BREAST BIOPSY Right 2009 Benign ??? BREAST LUMPECTOMY 2018 ??? COLONOSCOPY 2017 ??? HEMICOLECTOMY Left 12/27/2017 Laparoscopic left hemicolectomy ??? HERNIA REPAIR 1970's ??? INCONTINENCE SURGERY 2007 ??? INGUINAL HERNIA REPAIR Right 1970 ??? MASTECTOMY, PARTIAL Left 01/14/2018 Biopsy Breast Needle Localization partial mastectomy (L), Biopsy [place] Lymph Node With Lymphoscintigraphy (L), Insertion Port A Cath (R) with ultrasound and fluroscopy ??? PORTACATH PLACEMENT 01/2018 right upper chest ??? TUBAL LIGATION 1991 OB History 4 Para 3 Term 2 1 AB 1 Living 2 SAB TAB Ectopic Multiple Live Births Obstetric Comments Post menopause Allergies Allergen Reactions ??? Tetanus Vaccines And Toxoid Swelling and Rash HOME MEDICATIONS : acetaminophen (TYLENOL) 500 mg tablet albuterol HFA (PROVENTIL HFA,VENTOLIN HFA,PROAIR HFA) 90 mcg/actuation inhaler ALPRAZolam (XANAX) 0.25 mg tablet atorvastatin (LIPITOR) 20 mg tablet biotin 1 mg capsule cholecalciferol (VITAMIN D3) 2,000 unit capsule dulaglutide (TRULICITY) 0.75 mg/0.5 mL pen injector fluticasone furoate-vilanterol (BREO ELLIPTA) 100-25 mcg/dose diskus inhaler hydroCHLOROthiazide (HYDRODIURIL) 12.5 mg tablet magnesium oxide 400 mg magnesium capsule oxyCODONE (ROXICODONE) 5 mg immediate release tablet potassium chloride ER (KLOR-CON,K-DUR) 10 mEq CR tablet rivaroxaban (XARELTO) 20 mg tablet sertraline (ZOLOFT) 50 mg tablet sitaGLIPtin-metformin (JANUMET XR) 100-1,000 mg tablet, ER multiphase 24 hr amLODIPine (NORVASC) 5 mg tablet Current Outpatient Medications: ??? acetaminophen (TYLENOL) 500 [...] attempt to quit: 2014 ??? Years since quittin.5 Smokeless Tobacco Never Used Substance and Sexual [...] Anesthesia problems Neg Hx PAT Physical Exam Airway Exam: Mallampati: II Cervical ROM: FROM TM distance: 3 Cardiovascular Exam: Rate: regular Rhythm: regular Pulmonary Exam: LCTA, bilat EENT Exam: trachea midline Dental Exam: Appears intact Skin Exam: Skin is warm and dry. Abdominal exam: Abdomen is soft. Bowel sounds are present. Current state: Patient's current state is cooperative. Line/Drains/Tubes/Devices: Lines and tubes in place: Right chest PORT. Vitals: 12/01/18 1641 BP: 123/58 Pulse: 75 SpO2: 96% Relevant diagnostics: ECG(s) 12/01/2018: NSR (HR=83 bpm) with premature atrial complexes Echocardiogram(s):08/07/2018--ECHO TTE:AR seen, No MR seen, no , no MS, trace TR, normal PV. Diastolic function: Normal LV size is normal. LVEF 65% (GLS -22%). Wall motion is normal. RV size and function are normal. Diastolic function: normal. No significant valve disease. Unable to estimate PASP due to lack of adequate TR jet. IVC is not visualized Stress test(s): N/A Cardiac catheterization(s): N/A PFT(s): N/A Vascular studies: 12/30/2017: Venous Doppler signals in the left upper extremity are within normal limits for spontaneity and phasicity; normal response to compression maneuvers. Contralateral subclavian vein is imaged for comparison and is patent. Unilateral (limited study) performed per M.D. order. Other: N/A PSTOP-Bang Total Score: 3 Ele index score: 100 Anesthesia Plan documented in this encounter Plan of Treatment Not on file documented as of this encounter Visit Diagnoses Not on filedocumented in this encounter Care Teams Veterinary Technician Relationship Specialty Start Date End Date Ravi Smith MD PCP - General 11/04/17 09/27/21 Aft, Kianna Machado MD PhD [address] [place] [address] Surgeon Surgical Oncology 11/22/17 Santiago Gilbert MD [address] [place] [address] Graduate Studies Dean Gastroenterology 11/22/17 documented as of this encounter
--- OUTSIDE RECORDS SUMMARY | 2024-04-24 13:46 | XMS_ITS | Encounter Summary ---
Author Organization [facility] Healthcare Address [address] [place] [address] Care Team Providers Care Engineer Technician Name Role Phone Ravi Smith MD Primary Care Provider [phone] Aft, Kianna Machado MD PhD Unavailable Santiago Gilbert MD Unavailable [phone] Dmitry Sanderson MD Unavailable [phone] Abbi Ventura MD Unavailable Montse Thompson MD Unavailable [phone] Encounter Details Date Type Department Care Team (Latest Contact Info) Description 12/08/2018 4:28 PM CDT Hospital Encounter [facility] [address] [place] [id number] Discharge Disposition: Discharge to home or self [...] file 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 Radiology. ??There will be no report generated by a [facility] Radiologist. Narrative [facility] - 12/08/2018 4:28 PM CDT EXAMINATION: ??Images For Reference Purposes Only us Lela Hardy MD PhD IMG CT PROCEDURES Final Result [facility] documented in this encounter Visit Diagnoses Not on filedocumented in this encounter Care Teams Engineer Technician Relationship Specialty Start Date End Date Ravi Smith MD PCP - General 11/04/17 09/27/21 Aft, Kianna Machado MD PhD [address] [place] [address] Surgeon Surgical Oncology 11/22/17 Santiago Gilbert MD [address] [place] [address] [employer] Team Member Gastroenterology 11/22/17 Dmitry Sanderson MD [address] [place] [address] Referring Physician Colon and Rectal Surgery 12/03/1805/06 Abbi Ventura MD [address] [place] [address] [address] [place] [address] Medical Oncologist/Hand Flatwork Finisher Medical Oncology 12/03/18 Montse Thompson MD [address] [place] [address] [address] [place] [address] Consulting Physician Gynecologic Oncology 12/03/18 documented as of this encounter
--- OUTSIDE RECORDS SUMMARY | 2024-04-24 13:46 | XMS_ITS | Encounter Summary ---
Author Organization [facility] Healthcare Address [address] [place] [address] Care Team Providers Care Seamless Tube Drawer Name Role Phone Ravi Smith MD Primary Care Provider [phone] Aft, Kianna Machado MD PhD Unavailable [phone] Santiago Gilbert MD Unavailable [phone] Dmitry Sanderson MD Unavailable [phone] Abbi Ventura MD Unavailable Montse Thompson MD Unavailable [phone] Lela Hardy MD PhD Unavailable [phone] Aft, Kianna Machado MD PhD Unavailable [phone] Encounter Details Date Type Department Care Team (Late st Contact Info) Description 01/07/2019 Orders Only RAD ONC TREATMENTS Miscellaneous, Not [...] file 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 Gender Identity Not on file Sexual Orientation Not on file documented as of this encounter Plan of Treatment Not on file documented as of this encounter Procedures Procedure Name Priority Date/Time Associated Diagnosis Comments RAD ONC ARIA SESSION SUMMARY 01/07/2019 2:42 PM CDT documented in this encounter Results * RAD ONC ARIA SESSION SUMMARY (01/07/2019 2:42 PM CDT) Course Name C1 L BRS TN 2018 ARIA Course Plan Date 12/26/2018 4:45 PM ARIA Elapsed Days 0 ARIA Treatment Start Date 01/07/2019 ARIA Treatment Site [facility] DPV ARIA Dose Given To Date (cGy) 266 ARIA Session Dosage Given (cGy) 266 ARIA Plan ID L BREAST ARIA Fractions Treated 1 ARIA Prescribed Dose Per Fraction (cGy) 266 ARIA Prescribed Total Dose (cGy) 4,256 ARIA 01/07/2019 2:42 PM CDT us Not In File Miscellaneous RADIATION ONCOLOGY ORD ERABLES Final Result ARIA documented in this encounter Visit Diagnoses Not on filedocumented in this encounter Care Teams Seamless Tube Drawer Relationship Specialty Start Date End Date Ravi Smith MD PCP - General 11/04/17 09/27/21 Aft, Kianna Machado MD PhD [address] [place] [address] Surgeon Surgical Oncology 11/22/17 Santiago Gilbert MD [address] [place] [address] Substance Abuse Clinician Gastroenterology 11/22/17 Dmitry Sanderson MD [address] [place] [address] Referring Physician Colon and Rectal Surgery 12/03/1805/06 Abbi Ventura MD [address] [facility] [address] [place], [place] [id number] Medical Oncologist/Agent Telegrapher Medical Oncology 12/03/18 Montse Thompson MD [address] [facility] [address] [place] [address] Consulting Physician Gynecologic Oncology 12/03/18 Lela Hardy MD PhD [address] [facility] [address] [place] [address] Radiation Oncologist Radiation Oncology 12/23/18 Aft, Kianna Machado MD PhD [address] [facility] [address] [place], [place] [id number] Surgeon Surgical Oncology 12/23/18 09/17/21 documented as of this encounter
--- OUTSIDE RECORDS SUMMARY | 2024-04-24 13:46 | XMS_ITS | Encounter Summary ---
Author Organization [facility] Healthcare Address [address] [place] [address] Care Team Providers Care Public Works Director Name Role Phone Ravi Smith MD Primary Care Provider [phone] Aft, Kianna Machado MD PhD Unavailable [phone] Santiago Gilbert MD Unavailable [phone] Dmitry Sanderson MD Unavailable [phone] Abbi Ventura MD Unavailable Montse Thompson MD Unavailable [phone] Lela Hardy MD PhD Unavailable [phone] Aft, Kianna Machado MD PhD Unavailable [phone] Reason for Visit * Reason Comments OTV Encounter Details Date Type Department Care Team (Late st Contact Info) Description 01/07/[address] 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 Gender Identity Not on file Sexual Orientation Not on file documented as of this encounter Last Filed Vital Signs Vital Sign Reading Time Taken Comments Blood Pressure - - Pulse - - Temperature - - Respiratory Rate - - Oxygen Saturation - - Inhaled Oxygen Concentration - - Weight 103.8 kg (228 lb 12.8 oz) 01/07/2019 3:01 PM CDT Height - - Body Mass Index 33.79 12/25/2018 9:12 AM CDT documented in this encounter Ordered Prescriptions Prescription Sig Dispense Quantity Refills Last Filled Start Date End Date desoximetasone (TOPICORT) 0.25 % creamIndications:M alignant neoplasm of upper-inner quadrant of left breast in female, estrogen receptor negative (HCC) Apply to affected area every night prior to vanicream 60 g 2 01/07/2019 9 documented in this encounter Progress Notes * Alverto Baker MD PhD - 01/07/2019 2:56 PM CDT Staff Physician: Lela Hardy MD PhD Referring Physician: Patient Care Team: Dmitry Sanderson MD as Referring Physician (Colon and Rectal Surgery) Kianna Bunch MD PhD as Referring Physician (Surgical Oncology) Date of Service: 01/07/2019 RADIATION ONCOLOGY ON TREATMENT VISIT (OTV) NOTE Diagnosis: Cancer Staging Malignant neoplasm of upper-inner quadrant of left breast in female, 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) Staging form: Breast, AJCC 8th Edition - Pathologic: Stage IIA (pT2, pN0(sn), cM0, G3, ER-, OK-, HER2-) - Signed by Roger Dorsey MD on 12/23/2018 - Clinical: Stage IIB (cT2, cN0, cM0, G3, ER-, OK-, HER2-) - Signed by Lela Hardy MD PhD on01/01/2019 Encounter Diagnosis Name Primary? Malignant neoplasm of upper-inner quadrant of left breast in female, estrogen receptor negative(CMS/HCC) Yes 63 y/o F with synchronous breast and [...] the prone position. TREATMENT: She has received 1/16 fractions whole breast, and 0/5 fractions of the boost. SUBJECTIVE: She states she is doing well today and is without complaint. She denies fatigue, headache, nausea, skin changes, changes in breast contour, or new adenopathy. EXAM: Wt 103.8 kg (228 lb 12.8 oz) BMI 33.79 kg/m?? Pain Score and Location 01/07/19 1501 PainSc: 0-No pain General: NAD Pulm: Normal [...] speech clear Hyperpigmentation: absent Breast or Chest Wall:0 - None Axilla:0 - None Inframammary Sulcus: 0 - None Fatigue: 0 - None ASSESSMENT No side effects PLANS Continue with treatment RAD ONC PAIN PLAN: The patient is not currently having any pain that requires changes in pain management. Alverto Baker MD, PhD Radiation Oncology, PGY2 01/07/2019 4:57 PM Cosigned by Lela Hardy MD PhD at 01/11/2019 11:37 AM CDT Associated attestation - Lela Hardy MD PhD - 01/11/2019 11:37 AM CDT I have seen and examined this patient today. I discussed the case with the resident and agree with the findings and plan as documented in the resident's note. Given skin care instructions today. documented in this encounter Plan of Treatment Not on file documented as of this encounter Visit Diagnoses Diagnosis Malignant neoplasm of upper-inner quadrant of left breast in female, estrogen receptor negative (HCC)- Primary documented in this encounter Care Teams Public Works Director Relationship Specialty Start Date End Date Ravi Smith MD PCP - General 11/04/17 09/27/21 Aft, Kianna Machado MD PhD [address] [place] [address] Surgeon Surgical Oncology 11/22/17 Santiago Gilbert MD [address] [place] [address] Finishing Lab Technician Gastroenterology 11/22/17 Dmitry Sadnerson MD [address] [place] [address] Referring Physician Colon and Rectal Surgery 12/03/1805/06 Abbi Ventura MD [address] [place], [place] [id number] Medical Oncologist/Energy Economist Medical Oncology 12/03/18 Montse Thompson MD [address] [place], [place] [id number] Consulting Physician Gynecologic Oncology 12/03/18 Lela Hardy MD PhD [address] [place] [address] Radiation Oncologist Radiation Oncology 12/23/18 Aft, Kianna Machado MD PhD [address] [facility] [address] [place] [address] Surgeon Surgical Oncology 12/23/18 09/17/21 documented as of this encounter
--- OUTSIDE RECORDS SUMMARY | 2024-04-24 13:46 | XMS_ITS | Encounter Summary ---
Author Organization [facility] Healthcare Address [address] [place] [address] Care Team Providers Care Texture Artist Name Role Phone Ravi Smith MD Primary Care Provider [phone] Aft, Kianna Machado MD PhD Unavailable [phone] Santiago Gilbert MD Unavailable [phone] Dmitry Sanderson MD Unavailable [phone] Abbi Ventura MD Unavailable Montse Thompson MD Unavailable [phone] Lela Hardy MD PhD Unavailable [phone] Aft, Kianna Machado MD PhD Unavailable [phone] Encounter Details Date Type Department Care Team (Late st Contact Info) Description 01/09/2019 2:00 PM CDT Treatment [facility] Radiation Oncology at [facility] [address] [place] [address] Social History Tobacco Use Types Packs/Day Years [...] on file 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 Gender Identity Not on file Sexual Orientation Not on file documented as of this encounter Plan of Treatment Not on file documented as of this encounter Visit Diagnoses Not on filedocumented in this encounter Care Teams Texture Artist Relationship Specialty Start Date End Date Ravi Smith MD PCP - General 11/04/17 09/27/21 AfKianna simpson MD PhD [address] [place] [address] Surgeon Surgical Oncology 11/22/17 Santiago Gilbert MD [address] [place] [address] Web Communications Specialist Gastroenterology 11/22/17 Dmitry Sanderson MD [address] [place] [address] Referring Physician Colon and Rectal Surgery 12/03/1805/06 Abbi Ventura MD [address] [place] [address] [address] [place] [address] Medical Oncologist/Guide Winder Medical Oncology 12/03/18 Montse Thompson MD [address] [facility] [address] [place], [place] [address] Consulting Physician Gynecologic Oncology 12/03/18 Lela Hardy MD PhD [address] [place] [address] [address] [place] [address] Radiation Oncologist Radiation Oncology 12/23/18 Kianna Bunch MD PhD [address] [facility] [address] [place] [address] Surgeon Surgical Oncology 12/23/18 09/17/21 documented as of this encounter
--- OUTSIDE RECORDS SUMMARY | 2024-04-24 13:46 | XMS_ITS | Encounter Summary ---
Author Organization [facility] Address [address] [place] [address] Phone Care Team Providers Care Shirt Closer Name Role Phone Ravi Smith MD Primary Care Provider [phone] Aft, Kianna Machado MD PhD Unavailable [phone] Santiago Gilbert MD Unavailable [phone] Encounter Details Date Type Department Care Team (Late st Contact Info) Description 11/13/2018 Orders Only [facility] Obstetrics and Gynecology [address] [facility] Advanced Medicine 13th [place] [address] [place] [address] Evon Arreola, RN BRCA2 gene mutation positive in female [...] file Legal Sex Female 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 Gender Identity Not on file Sexual Orientation Not on file documented as of this encounter Plan of Treatment Not on file documented as of this encounter Visit Diagnoses Diagnosis BRCA2 gene mutation positive in female- Primary documented in this encounter Care Teams Shirt Closer Relationship Specialty Start Date End Date Ravi Smith MD PCP - General 11/04/17 09/27/21 Aft, Kianna Machado MD PhD [address] [place] [address] Surgeon Surgical Oncology 11/22/17 Santiago Gilbert MD [address] [place] [address] Survey Project Manager Gastroenterology 11/22/17 documented as of this encounter
--- OUTSIDE RECORDS SUMMARY | 2024-04-24 13:46 | XMS_ITS | Encounter Summary ---
Author Organization [facility] Address [address] [place] [address] Phone Care Team Providers Care Pediatrician Managing Partner Name Role Phone Ravi Smith MD Primary Care Provider [phone] Kianna Bunch MD PhD Unavailable [phone] Santiago Gilbert MD Unavailable [phone] Reason for Referral * Consultation (Routine) - Closed Specialty Diagnoses / Procedures Referred By Vijaya simpson Referred To Contact Radiation Oncology Diagnoses History of breast cancer Kianna Bunch MD PhD Phone: tel: fax: [facility] Radiation Oncology [facility] [place] [address] Phone: tel: fax: Referral ID Status Reason Start Date Expiration Date V isits Requested Visits Authorized [id number] Closed Specialty Services Required 12/01/2018 06/11/2020 1 1 Question Answer Is this referral for Breast Health Multi-Disciplinary Clinic? No Please select the performing region: [facility] [[id number]] Please select the performing department: [facility] RAD ONC [[id number]] # of visits: 1 Comments Pt need an appt with radiation oncology- [facility], per Dr. 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 Gender Identity Not on file Sexual Orientation Not on file documented as of this encounter Plan of Treatment Scheduled Referrals Name Type Priority Associated Diagnoses Order Schedule Ambulatory referral to Radiation Oncology Outpatient Referral Routine History of breast cancer Expected: 12/02/2018 (Approximate), Expires: 12/02/2019 documented as of this encounter Visit Diagnoses Diagnosis History of breast cancer- Primary Personal history of malignant neoplasm of breast documented in this encounter Care Teams Pediatrician Managing Partner Relationship Specialty Start Date End Date Ravi Smith MD PCP - General 11/04/17 09/27/21 AftKianna MD PhD [address] [place] [address] Surgeon Surgical Oncology 11/22/17 Santiago Gilbert MD [address] [place] [address] Emblem Cutter Gastroenterology 11/22/17 documented as of this encounter
--- OUTSIDE RECORDS SUMMARY | 2024-04-24 13:46 | XMS_ITS | Encounter Summary ---
Author Organization [facility] Healthcare Address [address] [place] [address] Care Team Providers Care Gambling Counsellor Name Role Phone Raiv Smith MD Primary Care Provider [phone] Aft, Kianna Machado MD PhD Unavailable [phone] Santiago Gilbert MD Unavailable [phone] Dmitry Sanderson MD Unavailable [phone] Abbi Ventura MD Unavailable Montse Thompson MD Unavailable [phone] Lela Hardy MD PhD Unavailable [phone] Aft, Kianna Machado MD PhD Unavailable [phone] Encounter Details Date Type Department Care Team (Late st Contact Info) Description 01/13/2019 9:45 AM CDT Treatment [facility] Radiation Oncology at [facility] [address] [place] [address] Social History Tobacco Use Types Packs/Day Years [...] file Legal 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 Gender Identity Not on file Sexual Orientation Not on file documented as of this encounter Plan of Treatment Not on file documented as of this encounter Visit Diagnoses Not on filedocumented in this encounter Care Teams Gambling Counsellor Relationship Specialty Start Date End Date Ravi Smith MD PCP - General 11/04/17 09/27/21 AfKianna simpson MD PhD [address] [place] [address] Surgeon Surgical Oncology 11/22/17 Santiago Gilbert MD [address] [place] [address] Fire Department Marine Engineer Gastroenterology 11/22/17 Dmitry Sanderson MD [address] [place] [address] Referring Physician Colon and Rectal Surgery 12/03/1805/06 Abbi Ventura MD [address] [place] [address] [address] [place] [address] Medical Oncologist/Pc Installation Engineer Medical Oncology 12/03/18 Montse Thompson MD [address] [facility] [address] [place], [place] [id number] Consulting Physician Gynecologic Oncology 12/03/18 Lela Hardy MD PhD [address] [place] [address] [address] [place] [address] Radiation Oncologist Radiation Oncology 12/23/18 Kianna Bunch MD PhD [address] [facility] [address] [place] [address] Surgeon Surgical Oncology 12/23/18 09/17/21 documented as of this encounter
--- OUTSIDE RECORDS SUMMARY | 2024-04-24 13:46 | XMS_ITS | Encounter Summary ---
Author Organization [facility] Address [address] [place] [address] Phone Care Team Providers Care Contact Lens Lathe Operator Name Role Phone Ravi Smith MD Primary Care Provider [phone] Aft, Kianna Machado MD PhD Unavailable [phone] Santiago Gilbert MD Unavailable [phone] Reason for Referral * Diagnostic Imaging (Routine) - Closed Specialty Diagnoses / Procedures Referred By Contronny t Referred To Contact Diagnoses BRCA2 gene mutation positive in female Procedures US Transvaginal Montse Thompson MD Phone: tel: fax: [facility] (All Locations) Referral ID Status Reason Start Date Expiration Date Visits Re quested Visits Authorized [id number] Closed 11/20/2018 05/31/2020 1 1 Encounter Details Date Type Department Care Team (Late st Contact Info) Description 11/20/2018 Orders Only [facility] Obstetrics and Gynecology [facility] Advanced Medicine 13th [place] [address] [place] [address] Evon Arreola, RN BRCA2 gene mutation positive [...] on file Legal 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 Gender Identity Not on file Sexual Orientation Not on file documented as of this encounter Plan of Treatment Not on file documented as of this encounter Results * US Transvaginal (11/24/2018 [...] Primary documented in this encounter Care Teams Contact Lens Lathe Operator Relationship Specialty Start Date End Date Ravi Smith MD PCP - General 11/04/17 09/27/21 Aft, Kianna Machado MD PhD [address] [place] [address] Surgeon Surgical Oncology 11/22/17 Santiago Gilbert MD [address] [place] [address] Therapeutic Assistant Gastroenterology 11/22/17 documented as of this encounter
--- OUTSIDE RECORDS SUMMARY | 2024-04-24 13:46 | XMS_ITS | Encounter Summary ---
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
--- OUTSIDE RECORDS SUMMARY | 2024-04-24 13:46 | XMS_ITS | Encounter Summary ---
Author Organization [facility] Healthcare Address [address] [place] [address] Care Team Providers Care Disabilities Services Officer Name Role Phone Ravi Smith MD Primary Care Provider [phone] Aft, Kianna Machado MD PhD Unavailable [phone] Santiago Gilbert MD Unavailable [phone] Dmitry Sanderson MD Unavailable [phone] Abbi Ventura MD Unavailable Montse Thompson MD Unavailable [phone] Lela Hardy MD PhD Unavailable [phone] Aft, Kianna Machado MD PhD Unavailable [phone] Encounter Details Date Type Department Care Team (Late st Contact Info) Description 01/02/2019 Telephone [facility] Radiation Oncology at [facility] [address] [place] [address] Lela Hardy MD PhD [address] [facility] [address] [place] [address] Social History Tobacco Use Types Packs/Day Years [...] on file Legal 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 Hardy's office would follow up with her on Saturday with update. documented in this encounter Plan of Treatment Not on file documented as of this encounter Visit Diagnoses Not on filedocumented in this encounter Care Teams Disabilities Services Officer Relationship Specialty Start Date End Date Ravi Smith MD PCP - General 11/04/17 09/27/21 Aft, Kianna Machado MD PhD [address] [place] [address] Surgeon Surgical Oncology 11/22/17 Santiago Gilbert MD [address] [place] [address] Director Of Knowledge Management Gastroenterology 11/22/17 Dmitry Sanderson MD [address] [place] [address] Referring Physician Colon and Rectal Surgery 12/03/1805/06 Abbi Ventura MD [address] [place] [address] [address] [place] [address] Medical Oncologist/Saddle Stitch Operator Medical Oncology 12/03/18 Montse Thompson MD [address] [facility] [address] [place] [address] Consulting Physician Gynecologic Oncology 12/03/18 Lela Hardy MD PhD [address] [place] [address] [address] [place] [address] Radiation Oncologist Radiation Oncology 12/23/18 Aft, Kianna Machado MD PhD [address] [place] [address] [address] [place] [address] Surgeon Surgical Oncology 12/23/18 09/17/21 documented as of this encounter
--- OUTSIDE RECORDS SUMMARY | 2024-04-24 13:47 | XMS_ITS | Encounter Summary ---
Author Organization [facility] Address [address] [place] [address] Phone Care Team Providers Care Split Leather Mosser Name Role Phone Ravi Smith MD Primary Care Provider [phone] Aft, Kianna Machado MD PhD Unavailable [phone] Santiago Gilbert MD Unavailable [phone] Encounter Details Date Type Department Care Team (Latest Contact Info) Description 10/22/2018 12:00 PM CDT Clinical Support [facility] Oncology [address] [place] [address] Malignant neoplasm of descending colon (CMS/HCC) Social [...] on file Legal 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 Female 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 Gender Identity Not on file Sexual Orientation Not on file documented as of this encounter Plan of Treatment Not on file documented as of this encounter Procedures Procedure Name Priority Date/Time Associated Diagnosis Comments MAGNESIUM Routine 10/22/2018 12:30 PM CDT Malignant neoplasm of descending colon (CMS/HCC) documented in this encounter Results * Magnesium (10/22/2018 12:30 PM CDT) Magnesium 1.9 1.4 - 2.5 mg/dL [facility] Blood specimen (specimen) 10/22/2018 12:30 PM CDT 10/22/2018 12:35 PM CDT us Abbi Ventura MD LAB BLOOD ORDERABLES Final Resul t [facility] [place] [address] documented in this encounter Visit Diagnoses Diagnosis 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) Malignant neoplasm of descending colon documented in this encounter Orders Appointment Requests Count Last Ordered Date Fi rst Ordered Date ONCBCN LAB APPOINTMENT 1 10/22/2018 documented in this encounter Care Teams Split Leather Mosser Relationship Specialty Start Date End Date Ravi Smith MD PCP - General 11/04/17 09/27/21 Aft, Kianna Machado MD PhD [address] [place] [address] Surgeon Surgical Oncology 11/22/17 Santiago Gilbert MD [address] [place] [address] Stripping And Booking Machine Operator Gastroenterology 11/22/17 documented as of this encounter
--- OUTSIDE RECORDS SUMMARY | 2024-04-24 13:47 | XMS_ITS | Encounter Summary ---
Author Organization [facility] Address [address] [place] [address] Phone Care Team Providers Care Adult Secondary Education Instructor Name Role Phone Ravi Smith MD Primary Care Provider [phone] Aft, Kianna Machado MD PhD Unavailable [phone] Santiago Gilbert MD Unavailable [phone] Encounter Details Date Type Department Care Team (Late st Contact Info) Description 10/02/2018 Orders Only [facility] Oncology [address] [place] [address] Abbi Ventura MD [address] [facility] [address] [place] [address] Social History Tobacco Use Types Packs/Day Years [...] on file 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
--- OUTSIDE RECORDS SUMMARY | 2024-04-24 13:47 | XMS_ITS | Encounter Summary ---
Author Organization [facility] Address [address] [facility] [address] [place] [address] Phone Care Team Providers Care Phd Intern Name Role Phone Hugo Smith MD Primary Care Provider [phone] Tony Bunch MD PhD Unavailable [phone] Santiago Gilbert MD Unavailable [phone] Reason for Referral * Diagnostic Lab (Routine) - Closed Specialty Diagnoses / Procedures Referred By Vijaya simpson Referred To Contact Lab Diagnoses 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) Procedures Cytology Montse Thompson MD Phone: tel: fax: Referral ID Status Reason Start Date Expiration Date Visits Re quested Visits Authorized [id number] Closed 10/20/2018 04/30/2020 1 1 Reason for Visit * OBGYN (Routine) - Closed Specialty Diagnoses / Procedures Referred By Vijaya simpson Referred To Contact Gynecologic Oncology Diagnoses hx breast ca discuss oopher medical reviewer records in chart Procedures CLOTHES DRIER ASSEMBLER NEW AftTony MD PhD Phone: tel: fax: Montse Thompson MD [address] [facility] [phone] [place] [address] Phone: tel: fax: Referral ID Status Reason Start Date Expiration Date Visits Re quested Visits Authorized [id number] Closed 10/20/2018 04/30/2020 1 1 Encounter Details Date Type Department Care Team (Late st Contact Info) Description 10/20/2018 9:30 AM CDT Office Visit 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 Gender Identity Not on file Sexual Orientation Not on file documented as of this encounter Last Filed Vital Signs Vital Sign Reading Time Taken Comments Blood Pressure 121/68 10/20/2018 9:39 AM CDT Pulse 84 10/20/2018 9:39 AM CDT Temperature 36.8 ??C (98.2 ??F) 10/20/2018 9:39 AM CD T Respiratory Rate 18 10/20/2018 9:39 AM CDT Oxygen Saturation 96% 10/20/2018 9:39 AM CDT Inhaled Oxygen Concentration - - Weight 103.1 kg (227 lb 4.8 oz) 10/20/2018 9:39 AM CDT Height 175.3 cm (5' 9 ) 10/20/2018 9:39 AM CDT Body Mass Index 33.57 10/20/2018 9:39 AM CDT documented in this encounter Progress Notes * Montse Thompson MD - 10/20/2018 12:00 AM [...] signed. ELECTRONICALLY SIGNED - 10/22/2018 11:36 AM Montse Thompson M.D. Professor, Department of Obstetrics and Gynecology Division of Gynecologic Oncology [facility] PHT/lw/#[id number] cc: BIRDIE LEBLANC M.D. / TONY BUNCH MD / HUGO SMITH MD / / NICOLE LÓPEZ MD / MELIZA JENNINGS MD / / documented in this encounter Miscellaneous Notes * Treatment Plan - Montse Thompson MD - 10/20/2018 9:30 AM CDT Please schedule Aleah Zabrina for the following: Requested Order Contrast Indication When CXR CT Chest, Abdomen, and Pelvis CT Abdomen and Pelvis LEEP (during clinic hours) CLOTHES DRIER ASSEMBLER Ultrasound x MRI Mammogram PET Initiate Survivoship Care Plan Surveillance Labs (CBC w/ Diff, CMP, Magnesium, CA125) Labwork: CA125 x documented in this encounter Plan of Treatment Not on file documented as of this encounter Results * Comprehensive metabolic panel (10/20/2018 1:11 PM CDT) Sodium 141 135 - 145 mmol/L [facility] Potassium, pl 4.7 3.3 - 4.9 mmol/L [facility] Chloride 105 97 - 110 mmol/L [facility] CO2 26 22 - 32 mmol/L [facility] Anion gap 10 2 - 15 mmol/L [facility] BUN 20 8 - 25 mg/dL [facility] Creatinine 1.06 0.60 - 1.10 mg/dL [facility] Glucose 115 70 - 199 mg/dL [facility] [...] interpretive data was last revised 2017. Calcium 10.1 8.5 - 10.3 mg/dL [facility] Bilirubin, total 0.3 0.1 - 1.2 mg/dL [facility] Protein, pl 7.2 6.5 - 8.5 g/dL [facility] Albumin 4.4 3.5 - 5.0 g/dL [facility] Alk phos 83 40 - 130 Units/L [facility] ALT 16 7 - 45 Units/L [facility] AST 22 10 - 45 Units/L [facility] Blood specimen (specimen) 10/20/2018 1:11 PM CDT 10/20/2018 1:50 PM CDT Narrative [facility] - 10/20/2018 2:27 PM CDT us Montse Thompson MD LAB BLOOD ORDERABLES Fin al Result [facility] Department [place] [address] * (ABNORMAL) CBC with auto differential (10/20/2018 1:11 PM CDT) WBC 7.7 3.8 - 9.9 K/cumm [facility] Hgb 10.3(L) 11.9 - 15.5 g/dL [facility] Hct 32.2(L) 35.6 - 45.5 % [facility] Plt 173 150 - 400 K/cumm [facility] MPV 9.8 9.1 - 12.3 fL [facility] RBC 3.24(L) 3.90 - 5.20 M/cumm [facility] MCV 99.4(H) 81.3 - 96.4 fL [facility] MCH 31.8 27.1 - 33.3 pg [facility] MCHC 32.0(L) 32.3 - 35.7 g/dL [facility] RDW CV 13.0 11.1 - 14.9 % [facility] RDW SD 47.6 35.7 - 48.1 fL [facility] NRBC abs 0.00 0.00 - 0.01 K/cumm [facility] Blood specimen (specimen) 10/20/2018 1:11 PM CDT 10/20/2018 1:50 PM CDT Narrative [facility] - 10/20/2018 1:58 PM CDT [facility] Ac Thompson MD LAB BLOOD ORDERABLES Fin al Result [facility] Department [place] [address] * CA 125 (10/20/2018 1:11 PM CDT) CA 125 ag 12.3 0.0 - 35.0 units/mL [facility] Blood specimen (specimen) 10/20/2018 1:11 PM CDT 10/20/2018 1:50 PM CDT Narrative [facility] - 10/20/2018 2:27 PM CDT Montse Thompson MD LAB BLOOD ORDERABLES Fin al Result [facility] Department [place] [address] * (ABNORMAL) Cytology (10/20/2018 10:57 AM CDT) Fluid 10/20/2018 10:5 7 AM CDT 10/20/2018 12:08 PM CDT Narrative PATHOLOGY [facility] - 10/22/2018 1:29 PM CDT EPIC results best viewed via link to PDF [facility] [place] [address] CYTOPATHOLOGY REPORT FINAL WITH ADDENDUM Patient Name: ??ALEAH GERBER Gender: ??F : ??1955 (Age: 63) Address: ??[address] [place] [address] Hospital #: ??[id number] Service: ??Gynecology Location: ??[facility] CAM Patient Type: ??[facility] Ancillary Taken: ??10/20/2018 Received: ??10/20/2018 Accessioned: ??10/20/2018 Reported: ??10/22/2018 Physician(s): ??Montse Thompson M.D. ?? FINAL INTERPRETATION SOURCE OF SPECIMEN: ? Liquid based pap test, ThinPrep STATEMENT OF ADEQUACY: ?- Satisfactory for evaluation ?- Endocervical cells/transformation zone sample present GENERAL CATEGORY: ?- EPITHELIAL CELL ABNORMALITY DESCRIPTION: ?- Rare atypical glandular cells, NOS hxk/10/22/2018 09:29 By this signature, I attest that the above diagnosis is based upon my personal examination of the slides(and/or other material indicated in the diagnosis). ? Anastacio Ball DO Report Electronically Reviewed and Signed Out By Anastacio Ball DO 10/22/2018 13:29:13 GIGI Rose, CT(ASCP)[facility] Cervicovaginal Cytology (Pap Test) Disclaimer: The Pap test is a screening test used to detect cervical cancer and its precursors; it is not a diagnostic procedure. False negative and false positive results do occur. Pap test results should be interpreted in the context of pertinent clinical information and biopsy results as indicated. Gross Description A. ??Liquid based pap test, ThinPrep: ??Cervical/vaginal - Diagnostic ThinPrep with HPV Clinical Diagnosis and History Last Menstrual Period: post menopausal Menstrual History: Post-menopausal BRCA2 and hx of cryotherapy of cervix. Addenda Addendum Ordered: 10/24/2018 Status: Signed Out Addendum Complete: 10/24/2018 By: Anastacio Ball DO Addendum Signed Out: 10/24/2018 ?? Addendum Comment HPV Result: ??NEGATIVE for high risk types of Human Papilloma Virus (HPV) RNA This probe detects the presence of HPV types: 16, 18, 31, 33, 35, 39, 45, 51, 52, 56, 58, 59, 66 and 68. ??This HPV test was performed at [facility] in [place], [place] utilizing the Gen-Probe Aptima assay. By this signature, I attest that the above diagnosis is based upon my personal examination of the slides(and/or other material indicated in the diagnosis). ?? Anastacio Ball DO ??Report Electronically Reviewed and Signed Out By ??Anastacio Ball DO ??10/24/2018 16:27:59 ? The HPV test was performed by [facility], [address] [place] [address]. Report Images and scanned documents, if included only viewable in PDF version The performance characteristics of some immunohistochemical stains, in-situ hybridization and fluorescence in-situ hybridization tests and immunophenotyping by flow cytometry cited in this report (if any) were determined by the Surgical Pathology Department at [facility] as part of an ongoing senior quality assurance analyst program and in compliance [...] determined by the Surgical Pathology Department of [facility]. ??It has not been cleared or approved by the U. S. Food and Drug Administration. [facility] Ac Thompson MD LAB CYTOLOGY ORDERABLES Final Result PATHOLOGY [facility] 3rd Floor [place], [place] [phone] documented in this encounter Visit Diagnoses Diagnosis [...] Discontinue Reason Start Date End Da te BREO ELLIPTA 100-25 mcg/dose diskus inhalerIndications:Bronc hospasm Prevention with COPD Inhale every morning Therapy completed 11/22/2017 9 documented as of this encounter Historical Medications * This list may reflect changes made after this encounter. magnesium oxide 400 mg magnesium capsuleIndication s:hypomagnesemia Take 1 tablet by mouth 2 (two) times a day 03/23/2020 biotin 1 mg capsuleIndication s:Biotin Deficiency Take 1 tablet by mouth every morning 03/23/2020 added in this encounter Orders Nursing Count Last Ordered Date First Orde red Date ORAL INTAKE FOR [facility] SURGERY COMM 1 2018 Admission Count Last Ordered Date First Orde red Date ASSIGN PATIENT STATUS 1 10/20/2018 documented in this encounter Care Teams Phd Intern Relationship Specialty Start Date End Date Hugo Smith MD PCP - General 11/04/17 09/27/21 Aft, Tony Machado MD PhD [address] [place], [place] [id number] Surgeon Surgical Oncology 11/22/17 Santiago Gilbert MD [address] [place] [address] Flight Superintendent Gastroenterology 11/22/17 documented as of this encounter
--- OUTSIDE RECORDS SUMMARY | 2024-04-24 13:47 | XMS_ITS | Encounter Summary ---
Author Organization [facility] Address [address] [place] [address] Phone Care Team Providers Care Casting Machine Operator Helper Name Role Phone Ravi Smith MD Primary Care Provider [phone] Aft, Kianna Machado MD PhD Unavailable [phone] Santiago Gilbert MD Unavailable [phone] Encounter Details Date Type Department Care Team (Late st Contact Info) Description 10/02/2018 Orders Only [facility] Oncology [address] [place] [address] Abbi Ventura MD [address] [facility] [address] [place] [address] Social History Tobacco Use Types Packs/Day Years [...] file 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 Gender Identity Not on file Sexual Orientation Not on file documented as of this encounter Plan of Treatment Not on file documented as of this encounter Visit Diagnoses Not on filedocumented in this encounter Care Teams Casting Machine Operator Helper Relationship Specialty Start Date End Date Ravi Smith MD PCP - General 11/04/17 09/27/21 Aft, Kianna Machado MD PhD [address] [place] [address] Surgeon Surgical Oncology 11/22/17 Santiago Gilbert MD [address] [place] [address] Poultry Husbandry Worker Gastroenterology 11/22/17 documented as of this encounter
--- OUTSIDE RECORDS SUMMARY | 2024-04-24 13:47 | XMS_ITS | Encounter Summary ---
Author Organization [facility] Address [address] [place] [address] Phone Care Team Providers Care Insulation Packer Name Role Phone Ravi Smith MD Primary Care Provider [phone] Aft, Kianna Machado MD PhD Unavailable [phone] Santiago Gilbert MD Unavailable [phone] Encounter Details Date Type Department Care Team (Late st Contact Info) Description 11/05/2018 Telephone [facility] Oncology [address] [place] [id number] Fatemeh Zarate, RN Social History Tobacco Use [...] file 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 Ventura, Aleah Gerber, 59 Went to [facility] ER on 09/25/18 for COPD exacerbation. Attached are the records. She sent below message through [employer] today. Magnesium was 1.1 on arrival and potassiumwas 3.0. We had her on potassium 10 meq bid until 09/18/18. Pt wanted to see if she was ok without it. She is on hydrochlorothiazide. Surgery with Dr. Bunch has been postponed 2 weeks due to hospitalization. Pt is asking you to manage low magnesium and low potassium. Why are these levels low? We had never checked magnesium on her. She is back on potassium 10meq bid but do not see that she was advised to take OTC magnesium. Please review records and let me know how you would like to manage this. DB Was in hospital over the weekend with some breathing issues., they found low counts in potassium, magnesium and possible others. I was given meds for the potassium and magnesium. The hospitalist suggested a dr be in charge of managing my numbers perhaps more frequently. I will ask for info to pass along as far as numbers/results are concerned. I plan on being discharged tomorrow. Please call so we can discuss further as I'm sure you have questions. I have sent a note to dr Bunch as well. I am presuming next weeks surgery will need to be discussed [phone] Aleah Gerber 1955 10/01/18 Potassium and magnesium channels are linked. HCTZ can cause both. Please give her mag [place] and then oral mag oxide 400 mg bid Recheck levels in 1 week. Abbi Ventura 10/01/18 Spoke to pt . She will come in for lab appt 10/02/18 at 10:00am for stat BMP and stat mag. Based on results will add pt on for IV potassium and IV magnesium. Pt will resume potassium 10meq bidand start OTC mag oxide 400mg bid. DB 10/02/18 Follow up on lab results and schedule electrolyte replacement if needed. DB 10/02/18 Potassium 3.8. No potassium infusion needed. Magnesium 1.6. Will give pt 2 grams magnesium IV. She will start oral mag oxide per above. Recheck stat BMP and stat mag on 10/09/18 at 10:00am. DB 10/09- K+ 3.8 no K+ needed. Mg 1.5 - 2 grams given Iv; added In1 appointment for next week. KK 10/14/18 IN1 added to Pod 5 on 10/15/18 just in case. PS Pt scheduled for repeat labs on 10/22/18-will follow up on BMP and mag level. Pt was supposed to start oral mag oxide 400mg bid--she had forgot per our previous conversation and is to start on it bianka. DB Pt had labs drawn on 10/20/18 at [facility]. Potassium level was wnl at 4.7. Pt still coming in on 10/21/18to check mag level. She is taking mag oxide 400mg bid. If magnesium level is still low--infusion isscheduled if needed. Please follow up and let pt know--she will be waiting for results. Thanks, DB 10/22- Mag 1.9. Pt given 2g mag on 10/22. Per Dr. Ventura, d/c mag orders in [facility] as pt is WNL. Pt to come in 2 weeks to make sure Mag is still WNL. Per Dr. Ventura, no infusion time set up for 11/05. CW 11/05/18 Magnesium level was 2.0. Pt aware. She said she is tolerating oral magnesium and will continue to take it as recommended. Will recheck again at her next appt on 12/03/18. Pt verbalized an understanding.DB documented in this encounter Plan of Treatment Not on file documented as of this encounter Visit Diagnoses Not on filedocumented in this encounter Care Teams Insulation Packer Relationship Specialty Start Date End Date Ravi Smith MD PCP - General 11/04/17 09/27/21 Aft, Kianna Machado MD PhD [address] [place] [address] Surgeon Surgical Oncology 11/22/17 Santiago Gilbert MD [address] [place] [address] Watchstander Gastroenterology 11/22/17 documented as of this encounter
--- OUTSIDE RECORDS SUMMARY | 2024-04-24 13:47 | XMS_ITS | Encounter Summary ---
Author Organization [facility] Address [address] [place] [address] Phone Care Team Providers Care Store Host Name Role Phone Ravi Smith MD Primary Care Provider [phone] Aft, Kianna Machado MD PhD Unavailable [phone] Santiago Gilbert MD Unavailable [phone] Encounter Details Date Type Department Care Team (Late st Contact Info) Description 10/02/2018 Orders Only [facility] Oncology [address] [place] [address] Abbi Ventura MD [address] [facility] [address] [place] [address] Malignant neoplasm of upper-inner quadrant of left [...] on file 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 Gender Identity Not on file Sexual Orientation Not on file documented as of this encounter Plan of Treatment Not on file documented as of this encounter Results * Magnesium (10/09/2018 10:44 AM CDT) Magnesium 1.5 1.4 - 2.5 mg/dL [facility] Blood specimen (specimen) 10/09/2018 10:44 AM CDT 10/09/2018 10:47 AM CDT Narrative [facility] - 10/09/2018 11:09 AM CDT us Abbi Ventura MD LAB BLOOD ORDERABLES Final Resul t [facility] Department [place] [address] * Basic metabolic panel (10/09/2018 10:44 AM CDT) Pathologist [facility] Sodium 144 135 - 145 mmol/L [facility] Potassium, pl 3.8 3.3 - 4.9 mmol/L [facility] Chloride 109 97 - 110 mmol/L [facility] CO2 26 22 - 32 mmol/L [facility] Anion gap 9 2 - 15 mmol/L [facility] BUN 15 8 - 25 mg/dL [facility] Creatinine 0.87 0.60 - 1.10 mg/dL [facility] Glucose 135 70 - 199 mg/dL [facility] [...] interpretive data was last revised 2017. Calcium 9.2 8.5 - 10.3 mg/dL [facility] Blood specimen (specimen) 10/09/2018 10:44 AM CDT 10/09/2018 10:47 AM CDT Narrative [facility] - 10/09/2018 11:13 AM CDT us Abbi Ventura MD LAB BLOOD ORDERABLES Final Resul t [facility] Department [place] [address] documented in this encounter Visit Diagnoses Diagnosis [...] colon documented in this encounter Care Teams Store Host Relationship Specialty Start Date End Date Ravi Smith MD PCP - General 11/04/17 09/27/21 Aft, Kianna Machado MD PhD [address] [place] [address] Surgeon Surgical Oncology 11/22/17 Santiago Gilbert MD [address] [place] [address] Weigher Operator Gastroenterology 11/22/17 documented as of this encounter
--- OUTSIDE RECORDS SUMMARY | 2024-04-24 13:47 | XMS_ITS | Encounter Summary ---
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
--- OUTSIDE RECORDS SUMMARY | 2024-04-24 13:47 | XMS_ITS | Encounter Summary ---
Author Organization [facility] Address [address] [place] [address] Phone Care Team Providers Care Public Address System Operator Name Role Phone Ravi Smith MD Primary Care Provider [phone] Aft, Kianna Machado MD PhD Unavailable [phone] Santiago Gilbert MD Unavailable [phone] Reason for Visit * Reason Onset Date Comments Test Results 09/01/[address] ease advise. Encounter Details Date Type Department Care Team (Late st Contact Info) Description 09/01/2018 Telephone [facility] [address] [facility] 6th [place] [address] [place] [id number] Valencia Redd, RMA Test Results (Test results. 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 Last for 20 sec. Usually happens when she changes her position. Because of brisk reflexes and history of cancer, MRI was ordered to rule out spinal cord lesion. MRI of C/T spine didn't show metastasis. EMG didn't show e/o polyneuropathy. Her symptoms are not typical for neuromuscular disorders. We think her symptoms may not related to neuromuscular disorders. We suggests the patient to talk to her PCP and see if there is other reason related to her symptoms. She will contact us if her symptoms get worse,or change. She will have a follow-up clinic with Dr. Oabndo in Feb. Pt voices understanding. Discussed with Dr. Obando. * Telephone Encounter - Valencia Redd MA - 09/01/2018 3:28 PM CDT [address] Ruiz Dr. called at 3:28 PM on 09/01/2018 Chief Complaint Patient presents with ??? Results Test results. Please advise. She requests a call back to discuss this at your earliest convenience. Her preferred return phone number is: [phone] (home) Thank you, Valencia Redd MA documented in this encounter Plan of Treatment Not on file documented as of this encounter Visit Diagnoses Not on filedocumented in this encounter Care Teams Public Address System Operator Relationship Specialty Start Date End Date Ravi Smith MD PCP - General 11/04/17 09/27/21 Aft, Kianna Machado MD PhD [address] [place] [address] Surgeon Surgical Oncology 11/22/17 Santiago Gilbert MD [address] [place] [address] School Cleaner Gastroenterology 11/22/17 documented as of this encounter
--- OUTSIDE RECORDS SUMMARY | 2024-04-24 13:47 | XMS_ITS | Encounter Summary ---
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 Gender Identity Not on file Sexual Orientation Not on file documented as of this encounter Plan of Treatment Not on file documented as of this encounter Procedures Procedure Name Priority Date/Time Associated Diagnosis Comments MAGNESIUM STAT 10/09/2018 10:44 AM CDT Malignant neoplasm of upper-inner quadrant of left breast in female, 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) Malignant neoplasm of descending colon (CMS/HCC) BASIC METABOLIC PANEL STAT 10/09/2018 10:44 AM CDT Malignant neoplasm of upper-inner quadrant of left breast in female, 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) Malignant neoplasm of descending colon (CMS/HCC) documented in this encounter Results * Basic metabolic panel (10/09/2018 10:44 AM CDT) Sodium 144 135 - 145 mmol/L [facility] Potassium, pl 3.8 3.3 - 4.9 mmol/L [facility] Chloride 109 97 - 110 mmol/L [facility] CO2 26 22 - 32 mmol/L [facility] Anion gap 9 2 - 15 mmol/L [facility] BUN 15 8 - 25 mg/dL [facility] Creatinine 0.87 0.60 - 1.10 mg/dL [facility] Glucose 135 70 - 199 mg/dL [facility] 2017. Calcium 9.2 8.5 - 10.3 mg/dL [facility] Blood specimen (specimen) 10/09/2018 10:44 AM CDT 10/09/2018 10:47 AM CDT Narrative [facility] - 10/09/2018 11:13 AM CDT us Abbi Ventura MD LAB BLOOD ORDERABLES Final Resul t [facility] Department [place] [address] * Magnesium (10/09/2018 10:44 AM CDT) Magnesium 1.5 1.4 - 2.5 mg/dL [facility] Blood specimen (specimen) 10/09/2018 10:44 AM CDT 10/09/2018 10:47 AM CDT Narrative [facility] - 10/09/2018 11:09 AM CDT us Abbi Ventura MD LAB BLOOD ORDERABLES Final Resul t Performing Organization Address [facility] Co de Phone Number [facility] [place] [address] documented in this encounter Visit Diagnoses Diagnosis Malignant neoplasm of upper-inner quadrant of left breast in female, 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) Malignant neoplasm of descending colon documented in this encounter Care Teams Geometry Teacher Relationship Specialty Start Date End Date Ravi Smith MD PCP - General 11/04/17 09/27/21 Aft, Kianna Machado MD PhD [address] [place] [address] Surgeon Surgical Oncology 11/22/17 Santiago Gilbert MD [address] [place] [address] Investment Representative Gastroenterology 11/22/17 documented as of this encounter
--- OUTSIDE RECORDS SUMMARY | 2024-04-24 13:47 | XMS_ITS | Encounter Summary ---
Author Organization [facility] Address [address] [place] [address] Phone Care Team Providers Care Tandem Mill Operator Name Role Phone Ravi Smith MD Primary Care Provider [phone] Aft, Kianna Machado MD PhD Unavailable [phone] Santiago Gilbert MD Unavailable [phone] Reason for Visit * Reason Comments OP Infusion * Episode Based Medications (Routine) - Closed Specialty Diagnoses / Procedures Referred By Contac t Referred To Contact Diagnoses Malignant neoplasm of upper-inner quadrant of left breast in female, estrogen receptor negative (HCC) Hypokalemia Hypomagnesemia Procedures IVF Abbi Ventura MD [address] [facility] [address] [place] [address] Phone: tel: fax: [facility] [address] [place] [address] Phone: tel: fax: Referral ID Status Reason Start Date Expiration Date Visits Re quested Visits Authorized [id number] Closed 03/14/2018 10/22/2018 99 99 Encounter Details Date Type Department Care Team (Late st Contact Info) Description 10/09/2018 1:15 PM CDT Infusion [facility] [address] [place] [address] Hypomagnesemia (Primary Dx); Hypokalemia; Malignant neoplasm of upper-inner quadrant of left breast in female, 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); Dehydration; Malignant neoplasm of descending colon (CMS/HCC) Social [...] file Legal Sex Female 1:06 AM UTILITY HAND Gender Identity Not on file Sexual Orientation Not on file documented as of this encounter Last Filed Vital Signs Vital Sign Reading Time Taken Comments Blood Pressure 124/70 10/09/2018 1:37 PM CDT Pulse 111 10/09/2018 1:37 PM CDT Temperature 37 ??C (98.6 ??F) 10/09/2018 1:37 PM CDT Respiratory Rate 18 10/09/2018 1:37 PM CDT Oxygen Saturation 96% 10/09/2018 1:37 PM CDT Inhaled Oxygen Concentration - - Weight 101.7 kg (224 lb 4.8 oz) 10/09/2018 1:37 PM CDT Height - - Body Mass Index 33.12 09/22/2018 11:05 AM CDT documented in this encounter Nursing Notes * Uriel Corral - 10/09/2018 1:15 PM CDT Patient presented to treatment center for IVFS and Mg Sulfate for Mg level of 1.5. Patient tolerated both without incident. Port was HL and de-accessed with gauze and bandage applied to site. Patientdischarged ambulatory and in stable condition. documented in this encounter Plan of Treatment Not on file documented as of this encounter Visit Diagnoses Diagnosis Hypomagnesemia- Primary Disorders of magnesium metabolism Hypokalemia Hypopotassemia Malignant neoplasm of upper-inner quadrant of left breast in female, estrogen receptor negative (HCC) Dehydration 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) Malignant neoplasm of descending colon documented in this encounter Administered Medications Inactive Administered Medications - up to 3 most recent administrations Medication Order MAR Action Action Date Dose Rate Site heparin 100 unit/mL flush 500 Units 500 Units (5 mL), IV flush, Once, On Bonnie 10/09/18 at 1430, For 1 dose, Flush with Heparin immediately prior to de-accessing port.Indications:Hypomagne semia,Hypokalemia,Malignan t neoplasm of upper-inner quadrant of left breast in female, estrogen receptor negative (HCC) Given 10/09/2018 3:36 PM CDT 500 Units magnesium sulfate 2 g in sodium chloride 0.9% 100 mL IVPB 2 g, intravenous, at 104 mL/hr, Administer over 60 Minutes, Once as needed, If magnesium level is between 1.3 and 2 give 2 grams, Starting on Bonnie 10/09/18 at 1358, If magnesium level is between 1.3 and 2: Administer magnesium 2 grams (16mEq) IVPB over 1 hourIndications:Hypomagnes emia,Hypokalemia,Malignant 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, estrogen receptor negative (HCC) New Bag 10/09/2018 2:13 PM CDT 2 g 104 mL/hr sodium chloride 0.9% bolus 1,000 mL 1,000 mL, intravenous, at 666.7 mL/hr, Administer over 90 Minutes, Once, On Bonnie 10/09/18 at 1430, For 1 doseIndications:Dehydratio n,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),Malignant neoplasm of upper-inner quadrant of left breast in female, estrogen receptor negative (HCC) New Bag 10/09/2018 2:00 PM CDT 1,000 mL 666.7 mL/hr sodium chloride 0.9% flush 10 mL 10 mL, intravenous, As needed, line care, Starting on Bonnie 10/09/18 at 1358, Flush pre and post IV catheter use.Indications:Hypomagnes emia,Hypokalemia,Malignant neoplasm of upper-inner quadrant of left breast in female, estrogen receptor negative (HCC) Given 10/09/2018 2:00 PM CDT 10 mL documented in this encounter Care Teams Tandem Mill Operator Relationship Specialty Start Date End Date Ravi Smith MD PCP - General 11/04/17 09/27/21 Aft, Kianna Machado MD PhD [address] [place] [address] Surgeon Surgical Oncology 11/22/17 Santiago Gilbert MD [address] [place] [address] Ip Attorney Gastroenterology 11/22/17 documented as of this encounter
--- OUTSIDE RECORDS SUMMARY | 2024-04-24 13:47 | XMS_ITS | Encounter Summary ---
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
--- OUTSIDE RECORDS SUMMARY | 2024-04-24 13:47 | XMS_ITS | Encounter Summary ---
Author Organization [facility] Address [address] [place] [address] Care Team Providers Care Manager Merchandise Name Role Phone Ravi Smith MD Primary Care Provider [phone] Aft, Kianna Machado MD PhD Unavailable [phone] Santiago Gilbert MD Unavailable [phone] Encounter Details Date Type Department Care Team (Late st Contact Info) Description 10/20/2018 12:15 PM CDT Lab [facility] [address] [place] [id number] Social History Tobacco Use Types Packs/Day Years [...] file Legal Sex Female 1:06 AM DIRECTOR CASE MANAGEMENT Gender Identity Not on file Sexual Orientation Not on file documented as of this encounter Plan of Treatment Not on file documented as of this encounter Visit Diagnoses Not on filedocumented in this encounter Care Teams Manager Merchandise Relationship Specialty Start Date End Date Ravi Smith MD PCP - General 11/04/17 09/27/21 Aft, Kianna Machado MD PhD [address] [place] [address] Surgeon Surgical Oncology 11/22/17 Santiago Gilbert MD [address] [place] [address] Legal Mediator Gastroenterology 11/22/17 documented as of this encounter
--- OUTSIDE RECORDS SUMMARY | 2024-04-24 13:47 | XMS_ITS | Encounter Summary ---
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 Ventura to discuss TC Procedures ONCBCN CLINIC APPOINTMENT REQUEST RETURN [place] Montoya, SUBSEA ENGINEER [address] [address] Phone: tel: fax: Abbi Ventura MD [address] [place] [address] Phone: tel: fax: Referral ID Status Reason Start Date Expiration Date V isits Requested Visits Authorized [id number] Closed Specialty Services Required 06/04/2018 05/05/[phone] Encounter Details Date Type Department Care Team (Late st Contact Info) Description 10/15/2018 10:00 AM CDT Office Visit [facility] Oncology [address] [place] [address] Abbi Ventura MD [address] [place] [address] Malignant neoplasm of descending colon (CMS/HCC) Social [...] on file 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 Gender Identity Not on file Sexual Orientation Not on file documented as of this encounter Last Filed Vital Signs Vital Sign Reading Time Taken Comments Blood Pressure 146/76 10/15/2018 10:44 AM CDT Pulse 81 10/15/2018 10:44 AM CDT Temperature 36.7 ??C (98 ??F) 10/15/2018 10:44 AM CDT Respiratory Rate 16 10/15/2018 10:44 AM CDT Oxygen Saturation 97% 10/15/2018 10:44 AM CDT Inhaled Oxygen Concentration - - Weight 101 kg (222 lb 10.6 oz) 10/15/2018 10:44 AM CDT Height 175.3 cm (5' 9 ) 10/15/2018 10:44 AM CDT Body Mass Index 32.88 10/15/2018 10:44 AM CDT documented in this encounter Progress Notes * Vianey Miller, SUBSEA ENGINEER - 10/15/2018 10:00 AM CDT The Patient Identifying Data: Aleah Gerber [...] on 08/12/2018 14. LVEF 65% Interval History Presents today for follow up. Reports improvement in appetite, oral fluid intake and energy levels.Continues on Xarelto for PE, managed by PCP. Neuropathy stable. Reports mild mucositis but not limiting her oral intake. No other complaints. Reports compliance with oral potassium supplementation. Schedule for re-excision with Dr. Bunch and BSO with Dr. Thompson on 11/11/18. Review of Systems Review of systems positive for symptoms as per interval history. All other review of systems negative. Objective Vitals: Vitals BP 146/76 (BP Location: Right arm) Pulse 81 Temp 36.7 ??C (98 ??F) (Oral) Resp 16 Ht 175.3 cm (5' 9 ) Wt 101 kg (222 lb 10.6 oz) SpO2 97% BMI 32.88 kg/m?? PERFORMANCE STATUS: ECOG 3 SKIN: Normal turgor, normal texture. No petechia, [...] adenopathy. BREAST: Right: well healed surgical incision with density and tenderness. No axillary adenopathy orskin changes. Left breast ebngin without masses, skin changes or axillary adenopathy. ACCESS: L infraclav port-a-cath in place and accessed. Lab/Radiology/Diagnostic Review: Hematology Lab History Some values may be hidden. Unless noted otherwise, only the newest values recorded on each date aredisplayed. Labs - Hematology Latest Ref Range 08/06/18 08/12/18 08/27/18 10/15/18 WBC 3.8 - 9.9 K/cumm 13.8 (A) 6.4 10.3 (A) 5.8 Total Hb, POC 11.9 - 15.5 g/dL 8.8 (A) 8.2 (A) 8.1 (A) 9.0 (A) Hct 35.6 - 45.5 % 26.2 (A) 25.5 (A) 24.4 (A) 28.3 (A) Plt 150 - 400 K/cumm 97 (A) 160 130 (A) 154 Neutrophil abs 1.7 - 6.5 K/cumm 10.3 (A) 5.0 8.3 (A) 4.2 (A) Abnormal value Lab Results Component Value Date SODIUM 141 10/15/2018 POTASSIUM 4.1 10/15/2018 CO2 24 10/15/2018 BUNSER 19 10/15/2018 GLUCOSE 165 10/15/2018 CREATININE 0.95 10/15/2018 CALCIUM 9.3 10/15/2018 CHLORIDE 110 10/15/2018 ALBUMIN 3.8 10/15/2018 AST 18 10/15/2018 ALT 12 10/15/2018 ALKPHOS 62 10/15/2018 BILITOT 0.3 10/15/2018 PROT 6.5 10/15/2018 ANIONGAP 8 10/15/2018 Tumor Marker History Some values may be hidden. Unless noted otherwise, only the newest values recorded on each date aredisplayed. Tumor Markers Latest Ref Range 05/07/18 05/21/18 08/14/18 08/27/18 CEA <=5.0 ng/mL 5.0 4.0 2.7 Immunoglobulin G 700.0 - 1,600.0 mg/dL 425.0 (A) Immunoglobulin A 70.0 - 400.0 mg/dL 118.0 Immunoglobulin M 40.0 - 230.0 mg/dL 38.0 (A) Immunofixation No monoclonal protein detected. (A) Abnormal value Comments are available for some flowsheets but are not being displayed. Recent labs, radiology and pathology reviewed in [facility]: T4bN0 disease, Stage IIC colon adenocarcinoma: Completed adjuvant chemotherapy 05/2018. 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 Tolerated AC marginally with grade 3 fatigue and grade 2 dyspnea. Mucositis is at a grade 1 and grade 1 anemia. MyRisk panel is positive for BRCA2 mutation, and VUS in BRIP1 and NBN: patient wants to hold off prophylactic mastectomy at this point. Schedule for re- excision with Dr. Bunch and BSO with Dr. Thompson 11/11/18. Fatigue: improving. Depression/anxiety: follow up by Dr. Simms as needed (not currently seeing). 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 Hypokalemia: on oral replacement. Continue to monitor Hypomagnesia: will await results today to determine repletion needed. PLAN: 1. Re-excision with Dr. Bunch and BSO with Dr. Thompson planned 11/11/18 2. Await lab results today to determine need for magnesium repletion 3. RTC 3 weeks post surgery to further discuss plan of care 4. Colonoscopy due at end of summer Aleah Gerber will follow up as directed above, she was encouraged to call in the interim with questions or concerns. Vianey Miller, MSN, OCN, ANP Nurse Practitioner, Medical Oncology Assembler [place] completed by using M*Modal Fluency Direct speaking software, therefore, transcriptionvariances may occur. documented in this encounter Plan of Treatment Not on file documented as of this encounter Results * CEA (12/03/2018 2:05 PM CDT) Pathologist [facility] CEA 2.7 <=5.0 ng/mL [facility] Comment: Interpretative Data: Reference Range: Non-Smokers: 0.0 - 5.0 ng/mL Smokers: 0.0 ? 6.5 ng/mL This test was developed and its performance characteristics determined by the [facility] in a manner consistent with CLIA requirements. This test has not been cleared or approved by the U.S. Food and Drug Administration. Current interpretive data was last revised 2018. Blood specimen (specimen) 12/03/2018 2:05 PM CDT 12/03/2018 3:48 PM CDT Abbi Ventura MD LAB BLOOD ORDERABLES Final Resul t Performing Organization Address [facility] de Phone Number [facility] [place] [place] [address] * Magnesium (12/03/2018 2:05 PM CDT) [facility] Magnesium 1.9 1.4 - 2.5 mg/dL [facility] Blood specimen (specimen) 12/03/2018 2:05 PM CDT 12/03/2018 2:05 PM CDT Abbi Ventura MD LAB BLOOD ORDERABLES Final Resul t Performing Organization Address [facility] Co de Phone Number [facility] Department [place] [address] * Comprehensive metabolic panel (12/03/2018 2:05 PM CDT) Sodium 139 135 - 145 mmol/L [facility] Potassium, pl 4.2 3.3 - 4.9 mmol/L [facility] Chloride 104 97 - 110 mmol/L [facility] CO2 28 22 - 32 mmol/L [facility] Anion gap 8 2 - 15 mmol/L [facility] BUN 21 8 - 25 mg/dL [facility] Creatinine 1.04 0.60 - 1.10 mg/dL [facility] Glucose 143 70 - 199 mg/dL [facility] Comment: Interpretive Data Fasting glucose >/= 126 [...] 2017. Calcium 9.7 8.5 - 10.3 mg/dL [facility] Bilirubin, total 0.2 0.1 - 1.2 mg/dL [facility] Protein, pl 6.8 6.5 - 8.5 g/dL [facility] Albumin 4.1 3.5 - 5.0 g/dL [facility] Alk phos 72 40 - 130 Units/L [facility] ALT 14 7 - 45 Units/L [facility] AST 19 10 - 45 Units/L [facility] Blood specimen (specimen) 12/03/2018 2:05 PM CDT 12/03/2018 2:05 PM CDT us Abbi Ventura MD LAB BLOOD ORDERABLES Final Resul t [facility] Department [place] [address] * (ABNORMAL) CBC with auto differential (12/03/2018 2:05 PM CDT) WBC 6.6 3.8 - 9.9 K/cumm [facility] Hgb 10.4(L) 11.9 - 15.5 g/dL [facility] Hct 31.6(L) 35.6 - 45.5 % [facility] Plt 150 150 - 400 K/cumm [facility] MPV 9.0(L) 9.1 - 12.3 fL [facility] RBC 3.41(L) 3.90 - 5.20 M/cumm [facility] MCV 92.7 81.3 - 96.4 fL [facility] MCH 30.5 27.1 - 33.3 pg [facility] MCHC 32.9 32.3 - 35.7 g/dL [facility] RDW CV 12.7 11.1 - 14.9 % [facility] RDW SD 42.9 35.7 - 48.1 fL [facility] NRBC abs 0.00 0.00 - 0.01 K/cumm [facility] Blood specimen (specimen) 12/03/2018 2:05 PM CDT 12/03/2018 2:05 PM CDT Abbi Ventura MD LAB BLOOD ORDERABLES Final Resul t Performing Organization Address [facility] de Phone Number [facility] [place] [place] [address] * Magnesium (10/22/2018 12:30 PM CDT) Pathologist [facility] Magnesium 1.9 1.4 - 2.5 mg/dL [facility] Blood specimen (specimen) 10/22/2018 12:30 PM CDT 10/22/2018 12:35 PM CDT us Abbi Ventura MD LAB BLOOD ORDERABLES Final Resul t Performing Organization Address [facility] Co de Phone Number [facility] [place] [address] documented in this encounter Visit Diagnoses Diagnosis 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) Malignant neoplasm of descending colon documented in this encounter Orders Appointment Requests Count Last Ordered Date Fi rst Ordered Date ONCBCN CLINIC APPOINTMENT REQUEST 2 019 10/15/2018 ONCBCN LAB APPOINTMENT 2 12/03/201810/22 documented in this encounter Care Teams Stock Clerk Self Service Store Relationship Specialty Start Date End Date Ravi Smith MD PCP - General 11/04/17 09/27/21 Aft, Kianna Machado MD PhD [address] [place] [address] Surgeon Surgical Oncology 11/22/17 Santiago Gilbert MD [address] [place] [address] Soccer Commentator Gastroenterology 11/22/17 documented as of this encounter
--- OUTSIDE RECORDS SUMMARY | 2024-04-24 13:47 | XMS_ITS | Encounter Summary ---
Author Organization [facility] Address [address] [place] [address] Phone Care Team Providers Care Cage Operator Name Role Phone Ravi Smith MD Primary Care Provider [phone] Aft, Kianna Machado MD PhD Unavailable [phone] Santiago Gilbert MD Unavailable [phone] Encounter Details Date Type Department Care Team (Late st Contact Info) Description 10/01/2018 Orders Only [facility] Oncology [address] [place] [address] Abbi Ventura MD [address] [facility] [address] [place] [address] Malignant neoplasm of descending colon (CMS/HCC) (Primary [...] on file 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 Gender Identity Not on file Sexual Orientation Not on file documented as of this encounter Plan of Treatment Not on file documented as of this encounter Results * Magnesium (10/02/2018 9:45 AM CDT) Magnesium 1.6 1.4 - 2.5 mg/dL [facility] Blood specimen (specimen) 10/02/2018 9:45 AM CDT 10/02/2018 9:57 AM CDT Narrative [facility] - 10/02/2018 10:19 AM CDT us Abbi Ventura MD LAB BLOOD ORDERABLES Final Resul t [facility] [place] [address] * Basic metabolic panel (10/02/2018 9:45 AM CDT) Pathologist [facility] Sodium 142 135 - 145 mmol/L [facility] Potassium, pl 3.8 3.3 - 4.9 mmol/L [facility] Chloride 106 97 - 110 mmol/L [facility] CO2 27 22 - 32 mmol/L [facility] Anion gap 9 2 - 15 mmol/L [facility] BUN 14 8 - 25 mg/dL [facility] Creatinine 1.06 0.60 - 1.10 mg/dL [facility] Glucose 134 70 - 199 mg/dL [facility] Comment: Interpretive Data Fasting glucose [...] interpretive data was last revised 2017. Calcium 9.4 8.5 - 10.3 mg/dL [facility] Blood specimen (specimen) 10/02/2018 9:45 AM CDT 10/02/2018 9:57 AM CDT Narrative [facility] - 10/02/2018 10:26 AM CDT us Abbi Ventura MD LAB BLOOD ORDERABLES Final Resul t [facility] [place] [address] documented in this encounter Visit Diagnoses Diagnosis [...] (HCC) documented in this encounter Care Teams Cage Operator Relationship Specialty Start Date End Date Ravi Smith MD PCP - General 11/04/17 09/27/21 Aft, Kianna Machado MD PhD [address] [place] [address] Surgeon Surgical Oncology 11/22/17 Santiago Gilbert MD [address] [place] [address] Client Coordinator Gastroenterology 11/22/17 documented as of this encounter
--- OUTSIDE RECORDS SUMMARY | 2024-04-24 13:47 | XMS_ITS | Encounter Summary ---
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 PS 10/09 - scheduled 02/24. KK documented in this encounter Plan of Treatment Not on file documented as of this encounter Visit Diagnoses Not on filedocumented in this encounter Care Teams Farmworker Fur Relationship Specialty Start Date End Date Ravi Smith MD PCP - General 11/04/17 09/27/21 Aft, Kianna Machado MD PhD [address] [place] [address] Surgeon Surgical Oncology 11/22/17 Santiago Gilbert MD [address] [place] [address] Family Centered Specialist Gastroenterology 11/22/17 documented as of this encounter
--- OUTSIDE RECORDS SUMMARY | 2024-04-24 13:47 | XMS_ITS | Encounter Summary ---
Author Organization [facility] Address [address] [place] [address] Phone Care Team Providers Care Police Radio Dispatcher Name Role Phone Ravi Smith MD Primary Care Provider [phone] Aft, Kianna Machado MD PhD Unavailable [phone] Santiago Gilbert MD Unavailable [phone] Encounter Details Date Type Department Care Team (Late st Contact Info) Description 08/28/2018 Orders Only [facility] Neuro Muscle [address] [facility] Advanced Medicine 6th [place] [address] [place] [address] Nelia Chacko MD [address] [facility] [address] [place] [address] Social History Tobacco Use Types Packs/Day Years Used Date Smoking Tobacco: Former Cigarettes 2015 Smokeless Tobacco: Never Alcohol Use Standard Drinks/Week Comments Yes 0 (1 standard drink = 0.6 oz pur e alcohol) socially Comments No Sex and Gender Information Value Date Recorded Sex Assigned at Not on file 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 Gender Identity Not on file Sexual Orientation Not on file documented as of this encounter Ordered Prescriptions Prescription Sig Dispense Quantity Refills Last Filled Start Date End Date LORazepam (ATIVAN) 0.5 mg tablet Take 1 tablet (0.5 mg total) by mouth as directed 1 by mouth 30 minutes prior to MRI 2 tablet 08/28/2018 9 documented in this encounter Plan of Treatment Not on file documented as of this encounter Visit Diagnoses Not on filedocumented in this encounter Care Teams Police Radio Dispatcher Relationship Specialty Start Date End Date Ravi Smith MD PCP - General 11/04/17 09/27/21 Aft, Kianna Machado MD PhD [address] [place] [address] Surgeon Surgical Oncology 11/22/17 Santiago Gilbert MD [address] [place] [address] Manager Mining Gastroenterology 11/22/17 documented as of this encounter
--- OUTSIDE RECORDS SUMMARY | 2024-04-24 13:47 | XMS_ITS | Encounter Summary ---
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 Gender Identity Not on file Sexual Orientation Not on file documented as of this encounter Plan of Treatment Not on file documented as of this encounter Procedures Procedure Name Priority Date/Time Associated Diagnosis Comments SURGICAL PATHOLOGY Routine 10/27/2018 2: 40 PM CDT BRCA2 gene mutation positive in female Atypical glandular cells of undetermined significance (YRN) on cervical Pap smear documented in this encounter Results * Surgical pathology (10/27/2018 2:40 PM CDT) Tissue 10/27/2018 2:40 PM CDT 10/27/2018 4:21 PM CDT Narrative PATHOLOGY [facility] - 10/30/2018 9:57 AM CDT EPIC results best viewed via link to PDF [facility] [place] [address] SURGICAL PATHOLOGY REPORT FINAL Patient Name: ?? ALEAH AGUILAR Gender: ??F : ??1955 (Age: 63) Address: ??[address] [place] [address] Hospital #: ??[id number] Taken:10/27/2018 Received:10/27/2018 Reported: 10/30/2018 Patient Type: [facility] Ref Lab ?? Service: WOMEN'S GARMENT FITTER Location: [facility] Physician(s): ??Montse Thompson M.D. Diagnosis: A. ??Uterus, cervix, 12 o'clock, biopsy ? - Fragment of squamous mucosa with no histopathologic abnormality B. ??Uterus, endocervix, curettage ? - Fragments of endocervical mucosa with marked acute and chronic inflammation with associated reactive epithelial changes, microglandular hyperplasia, and squamous metaplasia - Fragment of mildly inflamed squamous mucosa C. ??Uterus, endometrium, biopsy ? - Extremely scant fragments of inactive endometrium - Extremely scant fragments of unremarkable endocervical epithelium [facility]/10/29/2018 14:18 By this signature, I attest that the above diagnosis is based upon my personal examination of the slides(and/or other material indicated in the diagnosis). Gilberto Linares M.D., Ph.D. Report Electronically Reviewed and Signed Out By ??Gilberto Linares M.D., Ph.D. 10/30/2018 09:57:48 Microscopic Description and Comment: Microscopic examination substantiates the above cited diagnosis. Steffi Martin M.D., Ph.D. History: The patient is a 63-year-old woman with positive BRCA2 gene mutation, YRN on Pap smear, history of cryo and now with atypical endometrial cells. ??Operative procedure: Endometrial biopsy, endocervical curettage, and cervical biopsy. Specimen(s) Received: A: Cervix, ??biopsy at 12 o'clock B: ECC C: Endometrial biopsy Gross Description: The specimens are received in three formalin filled containers each labeled with the patient's name. ? A. ??The first container is additionally labeled cervical biopsy at 12 o'clock and contains one fragment of soft, pink-tovar tissue measuring 0.4 x 0.3 x 0.2 cm. ??Filtered and stained with hematoxylin. ??Labeled A1. ??Jar 0. B. ??The second container is additionally labeled ECC and contains of a synthetic brush tip with multiple adherent soft, glistening, mucinous, pink-tovar tissue fragments measuring 1.0 x 1.0 x 0.1 cm in aggregate. ??Filtered. ??Labeled B1. ??Jar 0. C. ??The third container is additionally labeled endometrial biopsy and contains of multiple irregular shaped, glistening, mucinous, pink-tovar tissue fragments measuring 0.9 x 0.8 x 0.1 cm in aggregate. ??Filtered. ??Labeled C1. ??Jar 0. mr2/10/27/2018 16:30 Deana Shelton MS, PA (ASC By this signature, I attest that the above diagnosis is based upon my personal examination of the slides(and/or other material). The performance characteristics of some immunohistochemical stains, fluorescence in-situ hybridization tests and immunophenotyping by flow cytometry cited in this report (if any) were determined by the Surgical Pathology Department at [facility] as part of an ongoing quality management coordinator program and in compliance with federally mandated [...] determined by the Surgical Pathology Department of [facility]. ??It has not been cleared or approved by the U. S. Food and Drug Administration. IMAGES AND SCANNED DOCUMENTS, IF INCLUDED, ONLY VIEWABLE IN PDF VERSION OF REPORT us Premwv Ac Thompson MD LAB PATHOLOGY ORDERABLES Final Result PATHOLOGY [facility] 3rd Floor [place], [place] [phone] documented in this encounter Visit Diagnoses Diagnosis BRCA2 gene mutation positive in female Atypical glandular cells of undetermined significance (YRN) on cervical Pap smear documented in this encounter Care Teams Mail Agent Relationship Specialty Start Date End Date Ravi Smith MD PCP - General 11/04/17 09/27/21 Aft, Kianna Machado MD PhD [address] [place] [address] Surgeon Surgical Oncology 11/22/17 Santiago Gilbert MD [address] [place] [address] Steam Clean Machine Operator Gastroenterology 11/22/17 documented as of this encounter
--- OUTSIDE RECORDS SUMMARY | 2024-04-24 13:47 | XMS_ITS | Encounter Summary ---
Author Organization [facility] Address [address] [place] [address] Phone Care Team Providers Care Naturalist Name Role Phone Ravi Smith MD Primary Care Provider [phone] Aft, Kianna Machado MD PhD Unavailable [phone] Santiago Gilbert MD Unavailable [phone] Encounter Details Date Type Department Care Team (Late st Contact Info) Description 10/01/2018 Orders Only [facility] Oncology [address] [place] [address] Fatemeh Zarate, RN Social History Tobacco Use [...] on file 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 Gender Identity Not on file Sexual Orientation Not on file documented as of this encounter Ordered Prescriptions Prescription Sig Dispense Quantity Refills Last Filled Start Date End Date potassium chloride ER (KLOR-CON,K-DUR) 10 mEq CR tablet Take 1 tablet/caps ule (10 mEq total) by mouth 2 (two) times a day 60 tablet/capsule 6 10/01/2018 04/01/2019 documented in this encounter Plan of Treatment Not on file documented as of this encounter Visit Diagnoses Not on filedocumented in this encounter Care Teams Naturalist Relationship Specialty Start Date End Date Ravi Smith MD PCP - General 11/04/17 09/27/21 Aft, Kianna Machado MD PhD [address] [place] [address] Surgeon Surgical Oncology 11/22/17 Santiago Gilbert MD [address] [place] [address] Truck Hop Gastroenterology 11/22/17 documented as of this encounter
--- OUTSIDE RECORDS SUMMARY | 2024-04-24 13:47 | XMS_ITS | Encounter Summary ---
Author Organization [facility] Healthcare Address [address] [place] [address] Care Team Providers Care Plant Maintenance Supervisor Name Role Phone Ravi Smith MD Primary Care Provider [phone] Aft, Kianna Machado MD PhD Unavailable [phone] Santiago Gilbert MD Unavailable [phone] Reason for Visit * Diagnostic Imaging (Routine) - Closed Specialty Diagnoses / Procedures Referred By Vijaya simpson Referred To Contact Diagnoses BRCA2 gene mutation positive in female Procedures US Transvaginal US Pelvis Complete Montse Thompson MD Phone: tel: fax: [facility] (All Locations) Referral ID Status Reason Start Date Expiration Date Visits Re quested Visits Authorized [id number] Closed 10/20/2018 04/30/2020 1 1 Encounter Details Date Type Department Care Team (Latest Contact Info) Description 10/31/2018 7:50 AM CDT - 10/31/2018 11:59 PM CDT Hospital Encounter 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 Electronically signed by: oTmas Landry M.D. Narrative 10/31/2018 9:32 AM CDT EXAMINATION: TRANSABDOMINAL AND TRANSVAGINAL PELVIC SONOGRAM HISTORY: ??BRCA mutation, screening for neoplasms COMPARISON: ??05/28/2018 CT FINDINGS: TRANSVAGINAL SONOGRAM: The uterus is anteverted and has a length of 4.3 cm, AP dimension of 2.7 cm, and transverse dimension of 2.5 cm. ??The endometrium measures 3 mm in thickness. Uterine fibroids are not present. ?? Transabdominal ??sonography was performed because the adnexa cannot be visualized transvaginally. TRANSABDOMINAL SONOGRAM: Right ovary: The right ovary measures ??2.7 cm x 2.6 cm x 1.3 cm. Left ovary: The left ovary measures ??3.1 cm x 1.3 cm x 2.0 cm. ?? Other: No abnormal masses or fluid collections are visualized in either adnexal region. Procedure Note Tomas Landry MD - 10/31/2018 EXAMINATION: TRANSABDOMINAL AND TRANSVAGINAL PELVIC SONOGRAM HISTORY: BRCA mutation, screening for neoplasms COMPARISON: 05/28/2018 CT FINDINGS: TRANSVAGINAL SONOGRAM: The uterus is anteverted and has a length of 4.3 cm, AP dimension of 2.7 cm, and transverse dimension of 2.5 cm. The endometrium measures 3 mm in thickness. Uterine fibroids are not present. Transabdominal sonography was performed because the adnexa cannot be visualized transvaginally. TRANSABDOMINAL SONOGRAM: Right ovary: The right ovary measures 2.7 cm x 2.6 cm x 1.3 cm. Left ovary: The left ovary measures 3.1 cm x 1.3 cm x 2.0 cm. Other: No abnormal masses or fluid collections are visualized in either adnexal region. IMPRESSION: Normal transabdominal and transvaginal sonogram of the pelvis. Electronically signed by: Tomas Landry M.D. us Premal Ac Thompson MD IMG US PROCEDURES Final Result documented in this encounter Visit Diagnoses Diagnosis BRCA2 gene mutation positive in female documented in this encounter Care Teams Plant Maintenance Supervisor Relationship Specialty Start Date End Date Ravi Smith MD PCP - General 11/04/17 09/27/21 Aft, Kianna Machado MD PhD [address] [place] [address] Surgeon Surgical Oncology 11/22/17 Santiago Gilbert MD [address] [place] [address] Seamstress Fitter Gastroenterology 11/22/17 documented as of this encounter
--- OUTSIDE RECORDS SUMMARY | 2024-04-24 13:47 | XMS_ITS | Encounter Summary ---
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
--- OUTSIDE RECORDS SUMMARY | 2024-04-24 13:47 | XMS_ITS | Encounter Summary ---
Author Organization [facility] Address [address] [place] [address] Phone Care Team Providers Care Centura Technical Lead Senior Developer Name Role Phone Ravi Smith MD Primary Care Provider [phone] AftKianna MD PhD Unavailable [phone] Santiago Gilbert MD Unavailable [phone] Encounter Details Date Type Department Care Team (Late st Contact Info) Description 10/02/[address] 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
--- OUTSIDE RECORDS SUMMARY | 2024-04-24 13:47 | XMS_ITS | Encounter Summary ---
Author Organization [facility] Healthcare Address [address] [place] [address] Care Team Providers Care Vehicle Maintenance Technician Name Role Phone Ravi Smith MD Primary Care Provider [phone] Aft, Kianna Machado MD PhD Unavailable [phone] Santiago Gilbert MD Unavailable [phone] Reason for Referral * Diagnostic Imaging (Routine) - Closed Specialty Diagnoses / Procedures Referred By Contac t Referred To Contact Radiology Diagnoses 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, estrogen receptor negative (HCC) Procedures MRI Spine Cervical and Thoracic W WO Contrast Trena Obando MD Phone: tel: fax: [address] [address] Referral ID Status Reason Start Date Expiration Date Visits Re quested Visits Authorized [id number] Closed 08/14/2018 09/28/2018 1 1 Reason for Visit * Diagnostic Imaging (Routine) - Closed Specialty Diagnoses / Procedures Referred By Contac t Referred To Contact Radiology Diagnoses 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, estrogen receptor negative (HCC) Procedures MRI Spine Cervical and Thoracic W WO Contrast Trena Obando MD Phone: tel: fax: [facility] [place] [address] Referral ID Status Reason Start Date Expiration Date Visits Re quested Visits Authorized [id number] Closed 08/14/2018 09/28/2018 1 1 Encounter Details Date Type Department Care Team (Latest Contact Info) Description 08/30/2018 1:04 PM CDT - 08/30/2018 11:59 PM CDT Hospital Encounter [facility]) [address] [place] [address] Trena Obando MD [address] [place] [address] Malignant neoplasm of descending colon (CMS/HCC); Malignant [...] on file 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 480 mL 2 04/17/2018 9 amLODIPine (NORVASC) 5 mg tabletIndication s:hypertension Take 5 mg by mouth every morning Patient doesn't recall if takes in AM or PM 0 02/21/2018 9 aspirin 81 mg chewable tablet 0 02/21/2018 9 atorvastatin (LIPITOR) 20 mg tabletIndication s:hyperlipidemia Take 20 mg by mouth nightly 0 02/21/2018 2 bisacodyl EC (DULCOLAX EC) 5 mg EC tabletIndication s:constipation Take 1 tablet (5 mg total) by mouth 2 (two) times a day as needed for constipation. 30 tablet 01/06/2018 9 BREO ELLIPTA 100-25 mcg/dose diskus inhalerIndicatio ns:Bronchospasm Prevention with COPD Inhale every morning 1 11/22/2017 9 cholecalciferol (VITAMIN D3) 2,000 unit capsuleIndicatio ns:Osteoporosis Take 2,000 Units by mouth nightly 10/04/2017 0 dexamethasone (DECADRON) 4 mg tablet Take 1 tab on days 2-4 of chemotherapy q 2 weeks. 10 tablet 3 01/31/2018 9 diphenoxylate-at ropine (LOMOTIL) 2.5-0.025 mg per tabletIndication s:Chemotherapy-I nduced Diarrhea,diarrhe a Take 1 tablet by mouth 4 (four) times a day as needed for diarrhea. 60 tablet 3 03/14/2018 9 dulaglutide (TRULICITY) 0.75 mg/0.5 mL pen injectorIndicati ons:type 2 diabetes mellitus,saturday Inject 0.75 mg under the skin every 7 days Saturday 1 famotidine (PEPCID) 20 mg tablet Take 20 mg by mouth 2 (two) times a day. 9 hydroCHLOROthiaz frederick (HYDRODIURIL) 12.5 mg tabletIndication s:hypertension Take 12.5 mg by mouth every morning 0 02/24/2018 2 JANUMET XR 100-1,000 mg tablet, ER multiphase 24 hr Take 1 tablet by mouth daily with dinner 5 08/29/2018 9 lidocaine-priloc andrew (EMLA) creamIndications :Administration of Local Anesthesia Apply topically as needed for pain. Apply to port 1 hour before use and cover with tape. 30 g 3 01/31/2018 9 LORazepam (ATIVAN) 0.5 mg tablet Take 1 tablet (0.5 mg total) by mouth as directed 1 by mouth 30 minutes prior to MRI 2 tablet 08/28/2018 9 ondansetron (ZOFRAN) 8 mg tablet Take 1 tablet (8 mg total) by mouth every 8 (eight) hours as needed for nausea or vomiting. . Take 1 tablet every 8 hours for nausea.prn 30 tablet 3 01/31/2018 9 oxyCODONE (ROXICODONE) 5 mg immediate release tabletIndication s:Pain Take 1 tablet (5 mg total) by mouth every 4 (four) hours as needed for pain 8 tablet 11/11/2018 9 polyethylene glycol (MIRALAX) 17 gram packetIndication s:constipation Take 1 packet (17 g total) by mouth 2 (two) times a day as needed (constipation). 30 packet 01/06/2018 9 potassium chloride ER (KLOR-CON,K-DUR) 10 mEq CR tablet Take 1 tablet/capsule (10 mEq total) by mouth 2 (two) times a day . 30 tablet/capsul e 3 07/09/2018 9 prochlorperazine (COMPAZINE) 10 mg tablet Take 1 tablet (10 mg total) by mouth every 6 (six) hours as needed for nausea. 30 tablet 3 01/31/2018 9 psyllium 0.52 gram capsuleIndicatio ns:constipation Take 1 capsule (0.52 g total) by mouth daily. In case of constipation 30 capsule 11 12/31/2017 9 rivaroxaban (XARELTO) 20 mg tabletIndication s:Prevention of Recurrent Venous Thrombosis in Malignancy Take 1 tablet (20 mg total) by mouth daily. 30 tablet 6 06/13/2018 9 sertraline (ZOLOFT) 50 mg tablet Take 50 mg by mouth daily 9 sitaGLIPtin-metf ormin (JANUMET XR) 100-1,000 mg tablet, ER multiphase 24 hrIndications:ty pe 2 diabetes mellitus Take 1 tablet by mouth daily with dinner 1 sitaGLIPtin-metf ormin (JANUMET) 50-1,000 mg per tablet Take 1 tablet by mouth 2 (two) times a day with meals 9 documented as of this encounter Discharge Disposition Disposition Code Departure Means Destination Discharge to home or self care documented in this encounter Plan of Treatment Not on file documented as of this encounter Procedures Procedure Name Priority Date/Time Associated Diagnosis Comments MRI SPINE CERVICAL THORACIC W WO CONTRAST Schedule Routine, Read Routine (OP Routine) 08/30/2018 2:26 PM CDT Malignant neoplasm of descending colon (CMS/HCC) Malignant neoplasm of upper-inner quadrant of left breast in female, 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) documented in this encounter Results * MRI Spine Cervical and Thoracic W WO Contrast (08/30/2018 2:26 PM CDT) Anatomical Region Laterality Modality Spine N/A Magnetic Resonan ce 09/01/2018 9:12 AM CDT Impressions 09/01/2018 2:39 PM CDT 1. ??No evidence of metastatic disease in the cervical or thoracic spine. 2. ??Mild multilevel degenerative changes without evidence of high-grade spinal canal stenosis or abnormal cord signal. Dictated by: Gilberto Hernandez M.D. The radiology attending physician has personally reviewed this study, and had reviewed and/or edited this written report and agrees with it. Electronically signed by: Tomas Miguel M.D. Narrative 09/01/2018 2:39 PM CDT EXAMINATION: Magnetic resonance imaging (MRI) of the cervical spine without and with contrast Magnetic resonance imaging (MRI) of the thoracic spine without and with contrast HISTORY: Patient with colon and breast cancer with gait difficulties and hyperreflexia. TECHNIQUE: Multiplanar multi-weighted MRI of the cervical and thoracic spine was performed without and with intravenous contrast using the standard spine protocol. Contrast information: 20 mL Dotarem COMPARISON: None available. FINDINGS: The alignment of the cervical and thoracic spine is normal. Lipid rich osseous hemangioma at C7. ??No suspicious osseous lesions identified. ??No acute fracture is identified; however, if trauma is suspected, a CT scan would be a more sensitive examination for fractures. The craniocervical junction is normal. The visualized portions of the skull base and the posterior fossa are normal. The spinal cord demonstrates normal signal intensity on all sequences. Multilevel disc desiccation with disc bulges at multiple cervical levels. ??Multilevel facet and uncovertebral arthropathy. ??Mild canal stenosis at multiple cervical spine. ??Mild neural foraminal stenosis at C3-C4 on the right and C5-C6 bilaterally. ??No significant spinal canal and neural foraminal stenosis in the thoracic spine. ??No soft tissue abnormality is identified. Normal signal voids are present in the vertebral arteries. There are no areas of abnormal contrast enhancement. Right sided central venous catheter. Procedure Note Tomas Miguel III, MD PhD - 09/01/2018 EXAMINATION: Magnetic resonance imaging (MRI) of the cervical spine without and with contrast Magnetic resonance imaging (MRI) of the thoracic spine without and with contrast HISTORY: Patient with colon and breast cancer with gait difficulties and hyperreflexia. TECHNIQUE: Multiplanar multi-weighted MRI of the cervical and thoracic spine was performed without and with intravenous contrast using the standard spine protocol. Contrast information: 20 mL Dotarem COMPARISON: None available. FINDINGS: The alignment of the cervical and thoracic spine is normal. Lipid rich osseous hemangioma at C7. No suspicious osseous lesions identified. No acute fracture is identified; however, if trauma is suspected, a CT scan would be a more sensitive examination for fractures. The craniocervical junction is normal. The visualized portions of the skull base and the posterior fossa are normal. The spinal cord demonstrates normal signal intensity on all sequences. Multilevel disc desiccation with disc bulges at multiple cervical levels. Multilevel facet and uncovertebral arthropathy. Mild canal stenosis at multiple cervical spine. Mild neural foraminal stenosis at C3-C4 on the right and C5-C6 bilaterally. No significant spinal canal and neural foraminal stenosis in the thoracic spine. No soft tissue abnormality is identified. Normal signal voids are present in the vertebral arteries. There are no areas of abnormal contrast enhancement. Right sided central venous catheter. IMPRESSION: 1. No evidence of metastatic disease in the cervical or thoracic spine. 2. Mild multilevel degenerative changes without evidence of high-grade spinal canal stenosis or abnormal cord signal. Dictated by: Gilberto Hernandez M.D. The radiology attending physician has personally reviewed this study, and had reviewed and/or edited this written report and agrees with it. Electronically signed by: Tomas Miguel M.D. Trena Obando MD IMG MRI PROCEDURES Final Res ult documented in this encounter Visit Diagnoses Diagnosis [...] Site gadoterate meglumine (DOTAREM) 0.5 mmol/mL injection 20.02 mL 20.02 mL (0.1 mmol/kg ? 100.1 kg), intravenous, Once in imaging, contrast, Starting on 08/30/18 at 1347, For 1 dose, Imaging Protocol Orders Given 08/30/2018 1:50 PM CDT 20 mL documented in this encounter Orders Medications Ordered That [place] ht Not Have Been Administered Count Last Ordered Date First Ordered Date gadoterate meglumine (DOTARE M) 0.5 mmol/mL injection 20.02 mL 1 08/30/2018 documented in this encounter Care Teams Vehicle Maintenance Technician Relationship Specialty Start Date End Date Ravi Smith MD PCP - General 11/04/17 09/27/21 Aft, Kianna Machado MD PhD [address] [place] [address] Surgeon Surgical Oncology 11/22/17 Santiago Gilbert MD [address] [place] [address] Mail Agent Gastroenterology 11/22/17 documented as of this encounter
--- OUTSIDE RECORDS SUMMARY | 2024-04-24 13:47 | XMS_ITS | Encounter Summary ---
Author Organization [facility] Address [address] [place] [address] Phone Care Team Providers Care Quality Assurance Director Name Role Phone Ravi Smith MD Primary Care Provider [phone] Aft, Kianna Machado MD PhD Unavailable [phone] Santiago Gilbert MD Unavailable [phone] Encounter Details Date Type Department Care Team (Late st Contact Info) Description 10/22/2018 Telephone [facility] Obstetrics and Gynecology [address] [place] [address] Clinic, [facility] Med Social History Tobacco Use Types Packs/Day Years [...] file 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 Gender Identity Not on file Sexual Orientation Not on file documented as of this encounter Miscellaneous Notes * Telephone Encounter - Yari Cid - 10/22/2018 11:36 AM CDT 10/22-left message to c/b for scheduling u/[facility] documented in this encounter Plan of Treatment Not on file documented as of this encounter Visit Diagnoses Not on filedocumented in this encounter Care Teams Quality Assurance Director Relationship Specialty Start Date End Date Ravi Smith MD PCP - General 11/04/17 09/27/21 Aft, Kianna Machado MD PhD [address] [place] [address] Surgeon Surgical Oncology 11/22/17 Santiago Gilbert MD [address] [place] [address] Director Television News Gastroenterology 11/22/17 documented as of this encounter
--- OUTSIDE RECORDS SUMMARY | 2024-04-24 13:47 | XMS_ITS | Encounter Summary ---
Author Organization [facility] Address [address] [place] [address] Care Team Providers Care Med Aide Name Role Phone Hugo Smith MD Primary Care Provider [phone] Julio C, Tony Machado MD PhD Unavailable [phone] Santiago Gilbert MD Unavailable [phone] Encounter Details Date Type Department Care Team (Latest Contact Info) Description 11/11/2018 12:56 PM CDT - 11/11/2018 6:18 PM CDT Hospital Encounter [facility] Operating [facility] [address] [place] [id number] Julio C, Tony Machado MD PhD [address] [place] [address] History of breast cancer Discharge Disposition: Discharge to home [...] file Legal Sex Female 1:06 AM INSPECTOR CIRCUITRY NEGATIVE Gender Identity Not on file Sexual Orientation Not on file documented as of this encounter Last Filed Vital Signs Vital Sign Reading Time Taken Comments Blood Pressure 93/72 11/11/2018 6:00 PM CDT Pulse 63 11/11/2018 6:10 PM CDT Temperature 36.4 ??C (97.5 ??F) 11/11/2018 5:35 PM CD T Respiratory Rate 21 11/11/2018 1:38 PM CDT Oxygen Saturation 99% 11/11/2018 6:10 PM CDT Inhaled Oxygen Concentration - - Weight 99.8 kg (220 lb) 09/22/2018 11:05 AM CDT Height 175.3 cm (5' 9 ) 09/22/2018 11:05 AM CDT Body Mass Index 32.49 09/22/2018 11:05 AM CDT documented in this encounter Discharge Diagnoses Diagnosis Malignant neoplasm of left female breast (HCC) - MALIGNANT NEOPLASM OF UNSPECIFIED SITE OF LEFT FEMALE BREAST Estrogen receptor negative tumor status - ESTROGEN RECEPTOR NEGATIVE STATUS [ER-] Major depressive disorder, single episode - MAJOR DEPRESSIVE DISORDER, SINGLE EPISODE, UNSPECIFIED Major depressive disorder, single episode, unspecified Obesity - OBESITY, UNSPECIFIED Obesity, unspecified Essential (primary) hypertension - ESSENTIAL (PRIMARY) HYPERTENSION Unspecified essential hypertension Pure hypercholesterolemia - PURE HYPERCHOLESTEROLEMIA, UNSPECIFIED Type 2 diabetes mellitus without complications (CMS/HCC) (HCC) - TYPE 2 DIABETES MELLITUS WITHOUT COMPLICATIONS Chronic obstructive pulmonary disease (HCC) - CHRONIC OBSTRUCTIVE PULMONARY DISEASE, UNSPECIFIED Personal history of other malignant neoplasm of large intestine - PERSONAL HISTORY OF OTHER MALIGNANT NEOPLASM OF LARGE INTESTINE Genetic susceptibility to malignant neoplasm of breast - GENETIC SUSCEPTIBILITY TO MALIGNANT NEOPLASM OF BREAST Personal history of malignant neoplasm of ovary - PERSONAL HISTORY OF MALIGNANT NEOPLASM OF OVARY Personal history of nicotine dependence - PERSONAL HISTORY OF NICOTINE DEPENDENCE Family history of malignant neoplasm of breast - FAMILY HISTORY OF MALIGNANT NEOPLASM OF BREAST Personal history of transient ischemic attack (TIA), and cerebral infarction without residual deficits - PERSONAL HISTORY OF TRANSIENT ISCHEMIC ATTACK (TIA), 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 Anxiety disorder - ANXIETY DISORDER, UNSPECIFIED Anxiety state, unspecified Other prison (current) drug therapy - OTHER NIGHT CLUB MANAGER (CURRENT) DRUG THERAPY exterminator current use of inhaled steroid - NIGHT CLUB MANAGER (CURRENT) USE OF INHALED STEROIDS exterminator current use of oral hypoglycemic drug - [facility] (CURRENT) USE OF ORAL HYPOGLYCEMIC DRUGS exterminator current use of anticoagulant - [facility] (CURRENT) USE OF ANTICOAGULANTS Personal history of pulmonary embolism - PERSONAL HISTORY OF PULMONARY EMBOLISM Personal history of other venous thrombosis and embolism - PERSONAL HISTORY OF OTHER VENOUS THROMBOSIS AND EMBOLISM Body mass index (BMI) of 32.0-32.9 in adult - BODY MASS INDEX (BMI) 32.0-32.9, ADULT documented in this encounter Medications at Time [...] mutation carrier. HISTORY OF PRESENT ILLNESS: Ms. Gerbre is a gaviota 63-year-old female, who was [...] HISTORY: 1. Inguinal hernia repair in the . 2. Left lumpectomy in 2017. 3. Bladder [...] Obstetrics and Gynecology Division of Gynecologic Oncology [facility] PHT/lw/#[id number] cc: BIRDIE LEBLANC M.D. / TONY BUNCH MD / HUGO SMITH MD / / NICOLE LÓPEZ MD / MELIZA JENNINGS MD / / documented in this encounter Miscellaneous Notes * Op Note - Tony Bunch MD PhD - 11/11/2018 4:45 PM CDT [...] SURGICAL PATHOLOGY Tony Bunch MD PhD 11/11/2018 [id number] Complications: None Condition on Discharge from the operating room was stable Tony Bunch MD PhD Date: 11/12/2018 Time: 10:04 AM TEACHING ATTESTATION : I was present and directly participated in the entire procedure (including opening and closing). * Pre-Procedure Instructions - Shruti Stanton RN - 09/22/2018 11:07 AM CDT PRE-SURGICAL [...] 2 days of your surgery, please call [phone] and ask for your surgeon's office Dr. [...] mastectomy) 11/11/2018 4:54 PM CDT Narrative PATHOLOGY [facility] - 11/24/2018 10:51 AM CDT EPIC results best viewed via link to PDF [facility] [place] [address] SURGICAL PATHOLOGY REPORT FINAL Patient Name: ?? ALEAH GERBER Gender: ??F : ??1955 (Age: 63) Address: ??[address] [place] [id number] Hospital #: ??[id number] Taken:11/11/2018 Received:11/11/2018 Reported: 11/24/2018 Patient Type: [facility] SDS ?? Service: Surgery Location: [facility] Physician(s): ??Hortencia Warren M.D. Michael Mulligan, M.D. [...] total formalin fixation time is 28 hours. mr2/11/12/2018 12:17 Deana Shelton MS, PA (ASC By this signature, I attest that the above diagnosis is based upon my personal examination of the slides(and/or other material). The performance characteristics of some immunohistochemical stains, fluorescence in-situ hybridization tests and immunophenotyping by flow cytometry cited in this report (if any) were determined by the Surgical Pathology Department at [facility] as part of an ongoing plant quality manager program and in compliance with [...] by the Surgical Pathology Department of [facility]. ??It has not been cleared or approved by the U. S. Food and Drug Administration. IMAGES AND SCANNED DOCUMENTS, IF INCLUDED, ONLY VIEWABLE IN PDF VERSION OF REPORT us Tony Bunch MD PhD LAB PATHOLOGY ORDERABLES F inal Result PATHOLOGY [facility] 3rd Floor [place], [place] [phone] * POCT glucose (11/11/2018 1:25 PM CDT) Glucose, POC 138 70 - 199 mg/dL [facility] Blood specimen (specimen) 11/11/2018 1:25 PM CDT 11/11/2018 1:25 PM CDT Tony Bunch MD PhD LAB POCT ORDERABLES - ROSEMARY CE Final Result Performing Organization Address [facility]/ZIP Co de Phone Number [facility] Department [place] [address] documented in this encounter Visit Diagnoses Diagnosis History of breast cancer Personal history of malignant neoplasm of breast documented in this encounter Administered Medications Inactive Administered Medications - up to 3 most recent administrations Medication Order MAR Action Action Date Dose Rate Site HYDROcodone-acetaminophen (NORCO) 5-325 mg per tablet 1 [...] Given 11/11/2018 2:33 PM CDT 2 mg sodium chloride 0.9% flush 0.5-20 mL [...] 08/29/2018 09/22/2018 al & mag hydroxide simethicone-diphenhyd kfeihn-hhageqscs-ssss atin (MAGIC MOUTHWASH) suspension 9-0-8-1Indications:Ch emotherapy-Induced Mucositis Swish and swallow 10 mL [...] (Anesthesia Volume Adjustment - Provider: Adelina Baxter CRNA)181 (Stopped - Provider: Dakotah Steve RN) Lactated Ringer's (LR) infusion 125 mL/hr, intravenous, Continuous, Starting on Sat11/11/18 at 1815, Phase I 181 (Due) Lactated Ringer's (LR) infusion 30 mL/hr, [...] 1 11/11/2018 HYDROmorphone (DILAUDID) injection 0.2 mg 11/11/2018 Lactated Ringer's (LR) infusion 2 9 lidocaine (XYLOCAINE) 15 mL, bupivacaine (MARCAINE) 15 mL solution 11/11/2018 meperidine (DEMEROL) preserv ative free injection 12.5 mg 11/11/2018 naloxone (NARCAN) 0.4 mg/mL injection 0.04-0.4 mg 11/11/2018 ondansetron (ZOFRAN) injection 4 mg 1 11/11 prochlorperazine (COMPAZINE) injection 10 mg 11/11/2018 sodium chloride 0.9 % irrigation 11/12/19 19 sodium chloride 0.9% flush 0.5-20 mL 2 01/2019 Diet Count Last Ordered Date First Orde red Date ADULT DISCHARGE DIET 1 11/11/2018 Nursing Count Last Ordered Date First Orde red Date DISCHARGE ACTIVITY 3 11/11/2018 DISCHARGE CALL PROVIDER 6 11/11/2018 DISCHARGE DRESSING 5 11/11/2018 DISCHARGE INSTRUCTIONS 1 11/11/2018 documented in this encounter Care Teams Med Aide Relationship Specialty Start Date End Date Hugo Smith MD PCP - General 11/04/17 09/27/21 Aft, Tony Machado MD PhD [address] [place] [address] Surgeon Surgical Oncology 11/22/17 Santiago Gilbert MD [address] [place] [address] Bag Repairer Gastroenterology 11/22/17 documented as of this encounter
--- OUTSIDE RECORDS SUMMARY | 2024-04-24 13:47 | XMS_ITS | Encounter Summary ---
Author Organization [facility] Address [address] [place] [address] Phone Care Team Providers Care Wafer Fabricator Name Role Phone Ravi Smith MD Primary Care Provider [phone] Aft, Kianna Machado MD PhD Unavailable [phone] Santiago Gilbert MD Unavailable [phone] Encounter Details Date Type Department Care Team (Late st Contact Info) Description 10/06/2018 Orders Only [facility] Surgery [address] 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 Gender Identity Not on file Sexual Orientation Not on file documented as of this encounter Plan of Treatment Not on file documented as of this encounter Visit Diagnoses Diagnosis Malignant neoplasm of upper-inner quadrant of left breast in female, estrogen receptor negative (HCC)- Primary documented in this encounter Care Teams Wafer Fabricator Relationship Specialty Start Date End Date Ravi Smith MD PCP - General 11/04/17 09/27/21 Aft, Kianna Machado MD PhD [address] [place], [place] [id number] Surgeon Surgical Oncology 11/22/17 Santiago Gilbert MD [address] [place] [address] Coverage Specialist Gastroenterology 11/22/17 documented as of this encounter
--- OUTSIDE RECORDS SUMMARY | 2024-04-24 13:47 | XMS_ITS | Encounter Summary ---
Author Organization [facility] Address [address] [place] [address] Phone Care Team Providers Care Therapeutic Massage Technician Name Role Phone Ravi Smith MD Primary Care Provider [phone] Aft, Kianna Machado MD PhD Unavailable Santiago Gilbert MD Unavailable [phone] Reason for Referral * Consultation (Routine) - Closed Specialty Diagnoses / Procedures Referred By Contronny t Referred To Contact Pulmonary Disease / Pulmonology Diagnoses Other acute pulmonary embolism without acute cor pulmonale (HCC) Abbi Ventura MD Phone: tel: fax: Corwin Weaver MD Phone: tel: fax: Referral ID Status Reason Start Date Expiration Date V isits Requested Visits Authorized [id number] Closed Specialty Services Required 10/02/2018 04/12/2020 1 1 Question Answer Please select the performing region: [facility] (All Locations) [167] # of visits: 1 Comments Please see pt for COPD and low O2 sats Encounter Details Date Type Department Care Team (Late st Contact Info) Description 10/02/2018 Orders Only [facility] Oncology [address] [place] [address] Abbi Ventura MD [address] [facility] [address] [place] [address] Other acute pulmonary embolism without acute cor pulmonale (CMS/HCC) (Primary Dx) Social History Tobacco Use [...] on file Legal Sex Female 1:06 AM CLIENT 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 Gender Identity Not on file Sexual Orientation Not on file documented as of this encounter Plan of Treatment Scheduled Referrals Name Type Priority Associated Diagnoses Order Schedule Ambulatory referral to Pulmonology Outpatient Referral Routine Other acute pulmonary embolism without acute cor pulmonale (CMS/HCC) Expected: 10/16/2018 (Approximate), Expires: 10/03/2019 documented as of this encounter Visit Diagnoses Diagnosis Other acute pulmonary embolism without acute cor pulmonale (HCC)- Primary documented in this encounter Care Teams Therapeutic Massage Technician Relationship Specialty Start Date End Date Ravi Smith MD PCP - General 11/04/17 09/27/21 Aft, Kianna Machado MD PhD [address] [place] [address] Surgeon Surgical Oncology 11/22/17 Santiago Gilbert MD [address] [place] [address] [employer] Salesperson Gastroenterology 11/22/17 documented as of this encounter
--- OUTSIDE RECORDS SUMMARY | 2024-04-24 13:47 | XMS_ITS | Encounter Summary ---
Author Organization [facility] Address [address] [place] [address] Phone Care Team Providers Care Family Nurse Practitioner Name Role Phone Ravi Smith MD Primary Care Provider [phone] Aft, Kianna Machado MD PhD Unavailable [phone] Santiago Gilbert MD Unavailable [phone] Reason for Visit * Reason Comments OP Infusion * Episode Based Medications (Routine) - Closed Specialty Diagnoses / Procedures Referred By Contac t Referred To Contact Diagnoses Malignant neoplasm of upper-inner quadrant of left breast in female, estrogen receptor negative (HCC) Hypokalemia Hypomagnesemia Procedures IVF Abbi Ventura MD [address] [facility] [address] [place] [address] Phone: tel: fax: [facility] Oncology [address] [place] [address] Phone: tel: fax: Referral ID Status Reason Start Date Expiration Date Visits Re quested Visits Authorized [id number] Closed 03/14/2018 10/22/2018 99 99 Encounter Details Date Type Department Care Team (Late st Contact Info) Description 10/02/2018 11:00 AM CDT Infusion [facility] Oncology [address] [place] [phone] Hypomagnesemia (Primary Dx); Hypokalemia; Malignant neoplasm of [...] file Legal Sex Female 1:06 AM ASSISTANT PARALEGAL Gender Identity Not on file Sexual Orientation Not on file documented as of this encounter Last Filed Vital Signs Vital Sign Reading Time Taken Comments Blood Pressure 118/72 10/02/2018 10:45 AM CDT Pulse 112 10/02/2018 10:45 AM CDT Temperature 36.7 ??C (98.1 ??F) 10/02/2018 10:45 AM C DT Respiratory Rate 18 10/02/2018 10:45 AM CDT Oxygen Saturation 95% 10/02/2018 10:45 AM CDT Inhaled Oxygen Concentration - - Weight 100 kg (220 lb 6.4 oz) 10/02/2018 10:45 A M CDT Height - - Body Mass Index 32.55 09/22/2018 11:05 AM CDT documented in this encounter Nursing Notes * Olivia Perez RN - 10/02/2018 11:00 AM CDT Pt tolerated treatment well. documented in [...] MAR Action Action Date Dose Rate Site magnesium sulfate 2 g in sodium chloride 0.9% 100 mL IVPB 2 g, intravenous, at 104 mL/hr, Administer over 60 Minutes, Once as needed, If magnesium level is between 1.3 and 2 give 2 grams, Starting on Bonnie 10/02/18 at 1059, If magnesium level is between 1.3 and 2: Administer magnesium 2 grams (16mEq) IVPB over 1 hourIndications:Hypomagnesemia ,Hypokalemia,Malignant neoplasm of upper-inner quadrant of left breast in female, estrogen receptor negative (HCC) New Bag 10/02/2018 11:27 AM CDT 2 g 104 mL/hr documented in this encounter Orders Medications Ordered That Jefferson ht Not Have Been Administered Count Last Ordered Date First Ordered Date magnesium sulfate 2 g in sod ium chloride 0.9% 100 mL IVPB 1 10/02/2018 documented in this encounter Care Teams Family Nurse Practitioner Relationship Specialty Start Date End Date Ravi Smith MD PCP - General 11/04/17 09/27/21 Aft, Kianna Machado MD PhD [address] [place] [address] Surgeon Surgical Oncology 11/22/17 Santiago Gilbert MD [address] [place] [address] Government Affairs Director Gastroenterology 11/22/17 documented as of this encounter
--- OUTSIDE RECORDS SUMMARY | 2024-04-24 13:47 | XMS_ITS | Encounter Summary ---
Author Organization [facility] Address [address] [place] [address] Phone Care Team Providers Care Regulatory Compliance Engineer Name Role Phone Ravi Smith MD Primary Care Provider [phone] Aft, Kianna Machado MD PhD Unavailable [phone] Santiago Gilbert MD Unavailable [phone] Reason for Visit * Reason Comments OP Infusion * Episode Based Medications (Routine) - Closed Specialty Diagnoses / Procedures Referred By Contac t Referred To Contact Diagnoses Malignant neoplasm of upper-inner quadrant of left breast in female, estrogen receptor negative (HCC) Hypokalemia Hypomagnesemia Procedures IVF Abbi Ventura MD 10 [facility] [address] [place] [address] Phone: tel: fax: [facility] Oncology [address] [place] [address] Phone: tel: fax: Referral ID Status Reason Start Date Expiration Date Visits Re quested Visits Authorized [id number] Closed 03/14/2018 10/22/2018 99 99 Encounter Details Date Type Department Care Team (Late st Contact Info) Description 10/22/2018 1:30 PM CDT Infusion [facility] Oncology [address] [place] [phone] Hypomagnesemia (Primary Dx); Hypokalemia; Malignant neoplasm [...] file Legal Sex Female 1:06 AM 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 Gender Identity Not on file Sexual Orientation Not on file documented as of this encounter Last Filed Vital Signs Vital Sign Reading Time Taken Comments Blood Pressure 142/79 10/22/2018 1:17 PM CDT Pulse 79 10/22/2018 1:17 PM CDT Temperature 36.6 ??C (97.9 ??F) 10/22/2018 1:17 PM CD T Respiratory Rate 18 10/22/2018 1:17 PM CDT Oxygen Saturation 96% 10/22/2018 1:17 PM CDT Inhaled Oxygen Concentration - - Weight 103.2 kg (227 lb 9.6 oz) 10/22/2018 1:17 PM CDT Height - - Body Mass Index 33.61 10/20/2018 11:50 AM CDT documented in this encounter Nursing Notes * Xiomara Leary, RN - 10/22/2018 1:30 PM CDT Pt here for Mg infusion Mg=1.9. Pt does report ongoing c/o mouth tenderness . Stated she was not doing any special mouth care. Encouraged pt to do salt water/backing soda rinses. Pt states she will try. No other complaints. Pt tolerated infusion well. Pt left stable. documented in this encounter Plan of Treatment Not on file documented as of this encounter Results * Magnesium (11/05/2018 1:12 PM CDT) Magnesium 2.0 1.4 - 2.5 mg/dL [facility] Blood specimen (specimen) 11/05/2018 1:12 PM CDT 11/05/2018 1:16 PM CDT us Abbi Ventura MD LAB BLOOD ORDERABLES Final Resul t LEVAR MICHELLEH [facility] Department [place] [address] documented in this encounter Visit Diagnoses Diagnosis Hypomagnesemia- Primary [...] Units (5 mL), IV flush, Once, On Sat10/22/18 at 1400, For 1 dose, Flush with Heparin immediately prior to de-accessing port.Indications:Hypomagnes emia,Hypokalemia,Malignant neoplasm of upper-inner quadrant of left breast in female, estrogen receptor negative (HCC) Given 10/22/2018 2:50 PM CDT 500 Units magnesium sulfate 2 g in sodium chloride 0.9% 100 mL IVPB 2 g, intravenous, at 104 mL/hr, Administer over 60 Minutes, Once as needed, If magnesium level is between 1.3 and 2 give 2 grams, Starting on Sat10/22/18 at 1321, If magnesium level is between 1.3 and 2: Administer magnesium 2 grams (16mEq) IVPB over 1 hourIndications:Hypomagnese krystina,Hypokalemia,Malignant neoplasm of upper-inner quadrant of left breast in female, estrogen receptor negative (HCC) New Bag 10/22/2018 1:40 PM CDT 2 g 104 mL/hr sodium chloride 0.9% flush 10 mL 10 mL, intravenous, As needed, line care, Starting on Sat10/22/18 at 1321, Flush pre and post IV catheter use.Indications:Hypomagnese krystina,Hypokalemia,Malignant neoplasm of upper-inner quadrant of left breast in female, estrogen receptor negative (HCC) Given 10/22/2018 2:50 PM CDT 10 mL Given 10/22/2018 1:34 PM CDT 10 mL documented in this encounter Orders Appointment Requests Count Last Ordered Date Fi rst Ordered Date ONCBCN LAB APPOINTMENT 1 11/05/2018 documented in this encounter Care Teams Regulatory Compliance Engineer Relationship Specialty Start Date End Date Ravi Smith MD PCP - General 11/04/17 09/27/21 Aft, Kianna Machado MD PhD [address] [place] [address] Surgeon Surgical Oncology 11/22/17 Santiago Gilbert MD [address] [place] [address] Resin Coater Gastroenterology 11/22/17 documented as of this encounter
--- OUTSIDE RECORDS SUMMARY | 2024-04-24 13:47 | XMS_ITS | Encounter Summary ---
Author Organization [facility] Healthcare Address [address] [place] [address] Care Team Providers Care Patient Care Director Name Role Phone Ravi Smith MD Primary Care Provider [phone] Kianna Bunch MD PhD Unavailable [phone] Santiago Gilbert MD Unavailable Encounter Details Date Type Department Care Team (Late st Contact Info) Description 08/30/2018 Orders Only [facility] [address] [place] [address] Neto Ibarra, RN Social History Tobacco Use Types Packs/Day Years Used Date Smoking Tobacco: Former Cigarettes 2015 Smokeless Tobacco: Never Alcohol Use Standard Drinks/Week Comments Yes 0 (1 standard drink = 0.6 oz pur e alcohol) socially Comments No Sex and Gender Information Value Date Recorded Sex Assigned at Not on file Legal Sex Female 1:06 AM 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
--- OUTSIDE RECORDS SUMMARY | 2024-04-24 13:47 | XMS_ITS | Encounter Summary ---
Author Organization [facility] Address [address] [place] [address] Phone Care Team Providers Care Awning Hanger Name Role Phone Ravi Smith MD Primary Care Provider [phone] Aft, Kianna Machado MD PhD Unavailable [phone] Santiago Gilbert MD Unavailable [phone] Encounter Details Date Type Department Care Team (Latest Contact Info) Description 10/15/2018 9:30 AM CDT Clinical Support [facility] [address] [place] [phone] Malignant neoplasm of descending colon (CMS/HCC) Social [...] on file 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 Gender Identity Not on file Sexual Orientation Not on file documented as of this encounter Plan of Treatment Not on file documented as of this encounter Procedures Procedure Name Priority Date/Time Associated Diagnosis Comments DIFFERENTIAL AUTO STAT 10/15/2018 10: 00 AM CDT Malignant neoplasm of descending colon (CMS/HCC) CBC WITH AUTO DIFFERENTIAL STAT 10/15/2018 10:00 AM CDT Malignant neoplasm of descending colon (CMS/HCC) CEA STAT 10/15/2018 10:00 AM CDT Malignant neoplasm of descending colon (CMS/HCC) COMPREHENSIVE METABOLIC PANEL STAT 10/15/2018 10:00 AM CDT Malignant neoplasm of descending colon (CMS/HCC) documented in this encounter Results * Differential, auto (10/15/2018 10:00 AM CDT) Neutrophil abs 4.2 1.7 - 6.5 K/cumm [facility] Imm gran abs 0.0 0.0 - 0.1 K/cumm [facility] Lymphocyte abs 0.9 0.8 - 3.3 K/cumm [facility] Monocyte abs 0.4 0.2 - 0.8 K/cumm [facility] Eosinophil abs 0.3 0.0 - 0.5 K/cumm [facility] Basophil abs 0.0 0.0 - 0.1 K/cumm [facility] Neutrophil pct 72.9 % [facility] Comment: Interpretive Data Percent cell count reference ranges are not reported, since discordance with absolute values may lead to misinterpretation of CBC data. Current Interpretive Data was last revised on 2017. Imm gran pct 0.3 % [facility] Comment: Interpretive Data Percent cell count reference ranges are not reported, since discordance with absolute values may lead to misinterpretation of CBC data. Current Interpretive Data was last revised on 2017. Lymphocyte pct 14.8 % [facility] Comment: Interpretive Data Percent cell count reference ranges are not reported, since discordance with absolute values may lead to misinterpretation of CBC data. Current Interpretive Data was last revised on 2017. Monocyte pct 6.5 % [facility] Comment: Interpretive Data Percent cell count reference ranges are not reported, since discordance with absolute values may lead to misinterpretation of CBC data. Current Interpretive Data was last revised on 2017. Eosinophil pct 5.0 % [facility] Comment: Interpretive Data Percent cell count reference ranges are not reported, since discordance with absolute values may lead to misinterpretation of CBC data. Current Interpretive Data was last revised on 2017. Basophil pct 0.5 % [facility] Comment: Interpretive Data Percent cell count reference ranges are not reported, since discordance with absolute values may lead to misinterpretation of CBC data. Current Interpretive Data was last revised on 2017. Blood specimen (specimen) 10/15/2018 10:00 AM CDT 10/15/2018 10:08 AM CDT Narrative [facility] - 10/15/2018 10:10 AM CDT us Abbi Ventura MD LAB BLOOD ORDERABLES Final Resul t [facility] Department [place] [address] * (ABNORMAL) CBC with auto differential (10/15/2018 10:00 AM CDT) WBC 5.8 3.8 - 9.9 K/cumm [facility] Hgb 9.0(L) 11.9 - 15.5 g/dL [facility] Hct 28.3(L) 35.6 - 45.5 % [facility] Plt 154 150 - 400 K/cumm [facility] MPV 9.3 9.1 - 12.3 fL [facility] RBC 2.79(L) 3.90 - 5.20 M/cumm [facility] MCV 101.4(H) 81.3 - 96.4 fL [facility] MCH 32.3 27.1 - 33.3 pg [facility] MCHC 31.8(L) 32.3 - 35.7 g/dL [facility] RDW CV 13.2 11.1 - 14.9 % [facility] RDW SD 49.4(H) 35.7 - 48.1 fL [facility] NRBC abs 0.00 0.00 - 0.01 K/cumm [facility] Blood specimen (specimen) 10/15/2018 10:00 AM CDT 10/15/2018 10:08 AM CDT Narrative [facility] - 10/15/2018 10:10 AM CDT Abbi Ventura MD LAB BLOOD ORDERABLES Final Resul t [facility] One [facility] Department [place] [address] * Comprehensive metabolic panel (10/15/2018 10:00 AM CDT) Sodium 141 135 - 145 mmol/L [facility] Potassium, pl 4.1 3.3 - 4.9 mmol/L [facility] Chloride 110 97 - 110 mmol/L [facility] CO2 24 22 - 32 mmol/L [facility] Anion gap 8 2 - 15 mmol/L [facility] BUN 19 8 - 25 mg/dL [facility] Creatinine 0.95 0.60 - 1.10 mg/dL [facility] Glucose 165 70 - 199 mg/dL [facility] [...] interpretive data was last revised 2017. Calcium 9.3 8.5 - 10.3 mg/dL [facility] Bilirubin, total 0.3 0.1 - 1.2 mg/dL [facility] Protein, pl 6.5 6.5 - 8.5 g/dL [facility] Albumin 3.8 3.5 - 5.0 g/dL [facility] Alk phos 62 40 - 130 Units/L [facility] ALT 12 7 - 45 Units/L [facility] AST 18 10 - 45 Units/L [facility] Blood specimen (specimen) 10/15/2018 10:00 AM CDT 10/15/2018 10:08 AM CDT Narrative [facility] - 10/15/2018 10:26 AM CDT Abbi Ventura MD LAB BLOOD ORDERABLES Final Resul t Performing Organization Address [facility] de Phone Number [facility] [place] [address] * CEA (10/15/2018 10:00 AM CDT) CEA 2.3 <=5.0 ng/mL [facility] Comment: Interpretative Data: Reference Range: Non-Smokers: 0.0 - 5.0 ng/mL Smokers: 0.0 ? 6.5 ng/mL This test was developed and its performance characteristics determined by the [facility] in a manner consistent with CLIA requirements. This test has not been cleared or approved by the U.S. Food and Drug Administration. Current interpretive data was last revised 2018. Blood specimen (specimen) 10/15/2018 10:00 AM CDT 10/15/2018 11:21 AM CDT Narrative [facility] - 10/15/2018 11:57 AM CDT us Abbi Ventura MD LAB BLOOD ORDERABLES Final Resul t Performing Organization Address [facility] de Phone Number [facility] Department [place] [address] documented in this encounter Visit Diagnoses Diagnosis 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) Malignant neoplasm of descending colon documented in this encounter Orders Appointment Requests Count Last Ordered Date Fi rst Ordered Date ONCBCN LAB APPOINTMENT 1 10/15/2018 documented in this encounter Care Teams Awning Hanger Relationship Specialty Start Date End Date Ravi Smith MD PCP - General 11/04/17 09/27/21 Aft, Kianna Machado MD PhD [address] [place] [address] Surgeon Surgical Oncology 11/22/17 Santiago Gilbert MD [address] [place] [address] Drilling Machine Operator Gastroenterology 11/22/17 documented as of this encounter
--- OUTSIDE RECORDS SUMMARY | 2024-04-24 13:47 | XMS_ITS | Encounter Summary ---
Author Organization [facility] Address [address] [place] [address] Phone Care Team Providers Care Suction Operator Name Role Phone Ravi Smith MD Primary Care Provider [phone] Aft, Kianna Machado MD PhD Unavailable [phone] Santiago Gilbert MD Unavailable [phone] Reason for Referral * Pulmonology (Routine) - Closed Specialty Diagnoses / Procedures Referred By Contac t Referred To Contact Diagnoses Chronic obstructive pulmonary disease, unspecified COPD type (HCC) Procedures Pulmonary Function Test -[facility] Adult PFT Lab- CAM-8D; Spirometry with Bronchodilator, Spirometry, Oxygen Assessment Titration, DLCO, Lung Volumes, ABG; Pleth with Airway Resistance; Room Air ABG; Spirometry Cristobal Dong MD Phone: tel: fax: [facility] (All Locations) Referral ID Status Reason Start Date Expiration Date Visits Re quested Visits Authorized [id number] Closed 10/07/2018 02/24/2019 99 99 * Diagnostic Imaging (Routine) - Closed Specialty Diagnoses / Procedures Referred By Contac t Referred To Contact Diagnoses Chronic obstructive pulmonary disease, unspecified COPD type (HCC) Procedures XR Chest Pa Lateral 2 Views Cristobal Dong MD Phone: tel: fax: [facility] Referral ID Status Reason Start Date Expiration Date Visits Re quested Visits Authorized [id number] Closed 10/07/2018 04/17/2020 1 1 Encounter Details Date Type Department Care Team (Late st Contact Info) Description 10/07/2018 Orders Only [facility] Pulmonary [address] [facility] 8th [place] [address] [place] [phone] Cristobal Dong MD [address] [facility] [address] [place], [place] [id number] Chronic obstructive pulmonary disease, unspecified COPD type [...] file 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 Gender Identity Not on file Sexual Orientation Not on file documented as of this encounter Plan of Treatment Not on file documented as of this encounter Results * Pulmonary Function Test - (02/05/2019 10:58 AM CDT) FVC PRED 3.71 0.05 - 9.99 Liters [facility] FVC PRE 3.05 0 - 12 Liters [facility] FVC %PRE PRED 82 0 - 300 % [facility] FVC POST 3.00 0 - 12 Liters [facility] FVC %POST PRED 81 0 - 300 % [facility] FVC %CHNG -2 0 - 300 % [facility] FEV1 PRED 2.89 0.05 - 9.99 Liters [facility] FEV1 PRE 2.33 0 - 12 Liters [facility] FEV1 %PRE PRED 81 0 - 300 % [facility] FEV1 POST 2.29 0 - 12 Liters [facility] FEV1 %POST PRED 79 0 - 300 % [facility] FEV1 %CHNG -1 0 - 300 % [facility] FEV1/FVC PRED 79 1 - 99 % [facility] FEV1/FVC PRE 76 0 - 12 % [facility] FEV1/FVC POST 77 0 - 12 % [facility] MHM55-02% PRED 2.47 0 - 12 L/sec [facility] CKZ22-43% PRE 1.95 0 - 12 L/sec [facility] GIX31-44% %PRE PRED 79 0 - 300 % [facility] KAO04-15% POST 1.93 0 - 12 L/sec [facility] QTI17-70% %POST PRED 78 0 - 300 % [facility] MEG97-80% %CHNG -1 0 - 300 % [facility] [...] PEF PRE 6.85 0 - 18 L/sec [facility] PEF %PRE PRED 108 0 - 300 % [facility] PEF POST 7.40 0 - 18 L/sec [facility] PEF %POST PRED 117 0 - 300 % [facility] PEF %CHNG 8 0 - 300 % [facility] OBO376% %CHNG -7 % [facility] PIF PRE 5.48 0 - 18 L/sec [facility] PIF POST 4.49 0 - 18 L/sec [facility] PIF %CHNG -18 0 - 300 % [facility] FEV6 PRE 2.94 0 - 12 Liters [facility] FEV6 POST 2.91 0 - 12 Liters [facility] FEV6 % CHG -1 0 - 300 % [facility] FEV1/FEV6 PRE 79 0 - 12 % [facility] FEV1/FEV6 POST 79 0 - 12 % [facility] VC PRED 3.54 0.05 - 9.99 Liters [facility] VC PRE 3.05 0.05 - 9.99 Liters [facility] VC %PRE PRED 86 0 - 300 % [facility] TLC PRED 5.79 0.05 - 11.99 Liters [facility] TLC PRE 5.01 0.05 - 11.99 Liters [facility] TLC %PRE PRED 87 0 - 300 % [facility] RV PRED 2.25 0.05 - 9.99 Liters [facility] RV PRE 1.96 0.05 - 9.99 Liters [facility] RV %PRE PRED 87 0 - 300 % [facility] RV/TLC PRED 40 0 - 300 % [facility] RV/TLC PRE 39 0 - 300 % [facility] FRC N2 PRED 2.81 0.05 - 9.[address] [facility] FRC PL PRED 3.31 0.05 - 9.[address] [facility] FRC PL PRE 2.72 0.05 - 9.99 Liters [facility] FRC PL %PRE PRED 82 0 - 300 % [facility] ERV PRED 1.22 0.05 - 9.99 Liters [facility] ERV PRE 0.75 0.05 - 9.99 Liters [facility] ERV %PRE PRED 62 0 - 300 % [facility] IC PRE 2.29 0.05 - 9.99 Liters [facility] DLCO PRED 27.6 0.05 - 99.99 mL/mmHg/min [facility] DLCO PRE 14.2 mL/mmHg/min [facility] DLCO %PRE PRED 51 0 - 300 % [facility] DL ADJ PRED 27.6 1 - 2 mL/mmHg/min [facility] DL ADJ PRE 15.3 1 - 2 mL/mmHg/min [facility] DL ADJ %PRE PRED 55 0 - 300 % [facility] DLCO/VA PRED 5.05 mL/mHg/min/ L [facility] DLCO/VA PRE 3.60 mL/mHg/min/ L [facility] DLCO/VA %PRE PRED 71 % [facility] DL/VA ADJ PRED 3.75 mL/mHg/min/ L [facility] DL/VA ADJ %PRE PRED 104 % [facility] VA PRE 3.94 Liters [facility] RAW PRED 1.14 cmH2O/L/sec [facility] RAW PRE 2.26 cmH2O/L/sec [facility] RAW %PRE PRED 199 % [facility] GAW PRED 0.794 L/sec/cmH2O [facility] GAW PRE 0.442 L/sec/cmH2O [facility] GAW %PRE PRED 56 % [facility] SRAW PRED 3.76 cmH2O/L/s/L [facility] SRAW PRE 6.76 cmH2O/L/s/L [facility] SRAW %PRE PRED 180 % [facility] SGAW PRED 0.262 L/s/cmH2O/L [facility] SGAW PRE 0.148 L/s/cmH2O/L [facility] SGAW %PRE PRED 57 % [facility] pH POC 7.43 [facility] pCO2 POC 37.0 mmHg [facility] PO2 POC 84.0 mmHg [facility] HCO3(c) POC 24.6 meq/L [facility] BE(B) POC 0.4 [facility] O2Hb POC 95.5 % [facility] COHb POC 1.2 % [facility] A-aDO2 POC 19.0 mmHg [facility] Anatomical Region Laterality Modality PFT 02/05/2019 10:1 3 AM CDT Narrative 02/06/2019 1:09 PM CDT [facility] Division of Pulmonary & Critical Care Medicine [address] [place] [address]; [place] [address]; [place], [place] [address]; [phone] Pulmonary Function Laboratory Pulmonary Stress Test Simple/Oxygen Assessment Patient: Aleah Gerber Date: 02/05/2019 Physician: Iker Ht: 69 in ?? Wt: 234 lbs Room: Op Supervisor Home Restoration Service: Mary : 1955 Diagnosis: COPD Time(min) Distance [...] There are no prior chest radiographs at [facility] for comparison. A right internal jugular catheter [...] There are no prior chest radiographs at [facility] for comparison. A right internal jugular catheter [...] obstructive pulmonary disease, unspecified COPD type (HCC) Chronic obstructive pulmonary disease, unspecified COPD type (HCC) documented in this encounter Care Teams Suction Operator Relationship Specialty Start Date End Date Ravi Smith MD PCP - General 11/04/17 09/27/21 Aft, Kianna Machado MD PhD [address] [place] [address] Surgeon Surgical Oncology 11/22/17 Santiago Gilbert MD [address] [place] [address] Cigarette Packing Machine Operator Gastroenterology 11/22/17 documented as of this encounter
--- OUTSIDE RECORDS SUMMARY | 2024-04-24 13:47 | XMS_ITS | Encounter Summary ---
Author Organization [facility] Address [address] [place] [address] Phone Care Team Providers Care Pipe Caulker Name Role Phone Ravi Smith MD Primary Care Provider [phone] Aft, Kianna Machado MD PhD Unavailable Santiago Gilbret MD Unavailable [phone] Reason for Visit * Reason Comments Chemotherapy * Episode Based Medications (Routine) - Closed Specialty Diagnoses / Procedures Referred By Contronny t Referred To Contact Diagnoses Malignant neoplasm of upper-inner quadrant of left breast in female, estrogen receptor negative (HCC) Hypokalemia Hypomagnesemia Procedures IVF Abbi Ventura MD [address] [facility] [address] [place] [address] Phone: tel: fax: [facility] [address] [place] [address] Phone: tel: fax: Referral ID Status Reason Start Date Expiration Date Visits Re quested Visits Authorized [id number] Closed 03/14/2018 10/22/2018 99 99 Encounter Details Date Type Department Care Team (Late st Contact Info) Description 10/15/2018 11:00 AM CDT Infusion [facility] [address] [place] [phone] Hypomagnesemia (Primary Dx); Hypokalemia; Malignant neoplasm of [...] on file 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 Patient addressed concerns with During appointment. Patient tolerated magnesium treatment without issue. documented in this encounter Plan of Treatment [...] Units (5 mL), IV flush, Once, On Sat10/15/18 at 1230, For 1 dose, Flush with Heparin immediately prior to de-accessing port.Indications:Hypomagnes emia,Hypokalemia,Malignant neoplasm of upper-inner quadrant of left breast in female, estrogen receptor negative (HCC) Given 10/15/2018 1:15 PM CDT 500 Units magnesium sulfate 2 g in sodium chloride 0.9% 100 mL IVPB 2 g, intravenous, at 104 mL/hr, Administer over 60 Minutes, Once as needed, If magnesium level is between 1.3 and 2 give 2 grams, Starting on Sat10/15/18 at 1152, If magnesium level is between 1.3 and 2: Administer magnesium 2 grams (16mEq) IVPB over 1 hourIndications:Hypomagnese krystina,Hypokalemia,Malignant neoplasm of upper-inner quadrant of left breast in female, estrogen receptor negative (HCC) New Bag 10/15/2018 12:09 PM CDT 2 g 104 mL/hr documented in this encounter Orders Medications Ordered That Jefferson ht Not Have Been Administered Count Last Ordered Date First Ordered Date sodium chloride 0.9% flush 10 mL 1 10/16/19 19 documented in this encounter Care Teams Pipe Caulker Relationship Specialty Start Date End Date Ravi Smith MD PCP - General 11/04/17 09/27/21 Aft, Kianna Machado MD PhD [address] [place] [address] Surgeon Surgical Oncology 11/22/17 Santiago Gilbert MD [address] [place] [address] Patent Legal Assistant Gastroenterology 11/22/17 documented as of this encounter
--- OUTSIDE RECORDS SUMMARY | 2024-04-24 13:47 | XMS_ITS | Encounter Summary ---
Author Organization [facility] Healthcare Address [address] [place] [address] Care Team Providers Care Licensed Appraiser Name Role Phone Ravi Smith MD Primary Care Provider [phone] Aft, Kianna Machado MD PhD Unavailable [phone] Santiago Gilbert MD Unavailable [phone] Encounter Details Date Type Department Care Team (Late st Contact Info) Description 10/20/2018 Orders Only [facility] PATHOLOGY [address] [facility] 3rd Floor [place], [place] [id number] Montse Thompson MD [address] [facility] [phone] [place] [address] Malignant neoplasm of descending colon (CMS/HCC) Social [...] on file 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 Galilea Muñiz Laboratory of Surgical Pathology [place], [place] [id number] CYTOPATHOLOGY REPORT FINAL WITH ADDENDUM Patient Name: ??ALEAH AGUILAR Gender: ??F : ??1955 (Age: 63) Address: ??[address] [place] [address] Hospital #: ??[id number] Service: ??Gynecology Location: ??[facility] CAM Patient Type: ??[facility] Ancillary Taken: ??10/20/2018 Received: ??10/20/2018 Accessioned: ??10/20/2018 [...] material indicated in the diagnosis). ? Anastacio Ball, DO Report Electronically Reviewed and Signed Out By Anastacio Ball DO 10/22/2018 13:29:13 GIGI Rose, CT(ASCP)[facility] Cervicovaginal Cytology (Pap Test) Disclaimer: The Pap [...] 68. ??This HPV test was performed at [facility] in [place], [place] utilizing the Gen-Probe Aptima assay. By this signature, I attest that the above diagnosis is based upon my personal examination of the slides(and/or other material indicated in the diagnosis). ?? Anastacio Ball DO ??Report Electronically Reviewed and Signed Out By ??Anastacio Ball DO ??10/24/2018 16:27:59 ? The HPV test was performed by [facility], [address] [place] [address]. Report Images and scanned documents, if included only viewable in PDF version The performance characteristics of some immunohistochemical stains, in-situ hybridization and fluorescence in-situ hybridization tests and immunophenotyping by flow cytometry cited in this report (if any) were determined by the Surgical Pathology Department at [facility] as part of an ongoing quality officer program and in compliance with federally mandated [...] determined by the Surgical Pathology Department of [facility]. ??It has not been cleared or approved by the U. S. Food and Drug Administration. [facility] Ac Thompson MD LAB CYTOLOGY ORDERABLES Final Result PATHOLOGY [facility] 3rd Floor [place], [place] [phone] documented in this encounter Visit Diagnoses Diagnosis 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) Malignant neoplasm of descending colon documented in this encounter Care Teams Licensed Appraiser Relationship Specialty Start Date End Date Ravi Smith MD PCP - General 11/04/17 09/27/21 Aft, Kianna Machado MD PhD [address] [place] [address] Surgeon Surgical Oncology 11/22/17 Santiago Gilbert MD [address] [place] [address] Group Contract Analyst Gastroenterology 11/22/17 documented as of this encounter
--- OUTSIDE RECORDS SUMMARY | 2024-04-24 13:47 | XMS_ITS | Encounter Summary ---
Author Organization [facility] Address [address] [place] [address] Phone Care Team Providers Care Practice Architect Name Role Phone Hugo Smith MD Primary Care Provider [phone] Aft, Tony Machado MD PhD Unavailable [phone] Santiago Gilbert MD Unavailable [phone] Encounter Details Date Type Department Care Team (Late st Contact Info) Description 10/27/2018 1:10 PM CDT Office Visit [facility] Obstetrics and Gynecology [address] [facility] Medicine 13th [place] [address] [place] [address] Montse Thompson MD [address] [facility] [phone] [place] [address] BRCA2 gene mutation positive in female (Primary [...] on file 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 Gender Identity Not on file Sexual Orientation Not on file documented as of this encounter Last Filed Vital Signs Vital Sign Reading Time Taken Comments Blood Pressure 125/75 10/27/2018 1:33 PM CDT Pulse 75 10/27/2018 1:33 PM CDT Temperature 37 ??C (98.6 ??F) 10/27/2018 1:33 PM CDT Respiratory Rate 16 10/27/2018 1:33 PM CDT Oxygen Saturation 96% 10/27/2018 1:33 PM CDT Inhaled Oxygen Concentration - - Weight 103.1 kg (227 lb 3.2 oz) 10/27/2018 1:33 PM CDT Height 175.3 cm (5' 9 ) 10/27/2018 1:33 PM CDT Body Mass Index 33.55 10/27/2018 1:33 PM CDT documented in this encounter Progress Notes * Montse Thompson MD - 10/27/2018 12:00 AM CDT PATIENT: ALEAH GERBER : 1955 FARHAT: 10/27/2018 REASON FOR VISIT: 1. YRN - NOS; with a history of cryotherapy. 2. BRCA2 mutation carrier. HISTORY OF PRESENT ILLNESS: [...] has not had routine Pap smears, however. Therefore, the patient was brought in for an evaluation. The patient complains of unchanged shortness of breath, cough, and diarrhea, as well as hot flashesand fatigue. The patient otherwise denies any pelvic pain, pelvic pressure, or vaginal bleeding. PAST MEDICAL HISTORY/REVIEW OF SYSTEMS: Unchanged from 10/20/2017, except for the above updates. PHYSICAL EXAMINATION: Vital Signs: Her blood pressure is 125/75, pulse is 75, respirations are 16. Her weight is 227 pounds. General Appearance: The patient is a well-developed, well-nourished female in no acute distress. HEENT: Atraumatic, normocephalic, PERRLA, EOMI, EENT: Within normal limits. Neck is supple, withoutthyromegaly or JVD. LN Survey: No supraclavicular, inguinal, or femoral lymphadenopathy. Lungs: Clear to auscultation bilaterally. Heart: Regular rate and rhythm. Positive S1/S2. Breasts: Deferred Back: No CVA or paraspinal tenderness. Abdomen: She does have laparoscopic incisions as well as small midline incision from a hand port from a laparoscopic hemicolectomy. Extremities: No clubbing, cyanosis, or edema. Neurologic: The patient is awake, alert, and oriented x 3. Pelvic Exam: External genitalia: Within normal limits. Urethra: Without masses or tenderness. Urethral meatus: Without any lesions or prolapse. Bladder: No masses or tenderness. Vulva: Normal. Speculum Exam: The cervix appears to be grossly normal. A colposcopy was performed with 5% acetic acid. She has diffuse aceto-white changes but most dense at 12 o'clock. A biopsy was obtained after verbal consent. An endocervical curettage was performed prior to the cervical biopsy. Then, the anterior lip of the cervix was grasped with a single-tooth tenaculum. The uterus sounded to approximately8 cm and 2 passes were taken with a scant amount of tissue. Then, Monsel's was applied, and all instruments were removed from the patient's vagina. Bimanual: Cervix feels normal in size, shape, and consistency. Uterus feels overall normal in size.There are no large adnexal masses, tenderness, or nodularity appreciated. Rectovaginal: Exam was deferred. ASSESSMENT AND PLAN: A 63-year-old female with a BRCA2 mutation and now an abnormal Pap smear with a history of cryosurgery in the remote past. 1. BRCA2 mutation: The patient was made aware that since the workup for these biopsies might be present later this week and I am on vacation and she may ultimately require hysterectomy, it probably would not be in her best interest to have a coordinated case with Dr. Bunch. The patient is okay with this situation, since she wants to have the best outcome of her surgery. Therefore, the patient will follow up in 1 month's time in order for us to discuss the type of surgery that will be necessary. 2. Breast surgery: The patient is due to have her breast surgery on 11/11/2018. 3. Follow-up will be in approximately 1 month's time, unless there are any new issues that arise that warrant an evaluation sooner. ELECTRONICALLY SIGNED - 10/28/2018 02:55 PM Montse Thompson M.D. Professor, Department of Obstetrics and Gynecology Division of Gynecologic Oncology [facility] [id number]/#[id number] cc: BIRDIE LEBLANC M.D. / TONY BUNCH MD / HUGO SMITH MD / / NICOLE LÓPEZ MD / MELIZA JENNINGS MD / / documented in this encounter Plan of Treatment Not on file documented as of this encounter Results * Surgical pathology (10/27/2018 2:40 PM CDT) Tissue 10/27/2018 2:40 PM CDT 10/27/2018 4:21 PM CDT Narrative PATHOLOGY [facility] - 10/30/2018 9:57 AM CDT [facility] results best viewed via link to PDF [facility] Laboratory [place] [address] SURGICAL PATHOLOGY REPORT FINAL Patient Name: ?? ALEAH GERBER Gender: ??F : ??1955 (Age: 63) Address: ??[address] [place] [address] ??[address] Hospital #: ??[id number] Taken:10/27/2018 Received:10/27/2018 Reported: 10/30/2018 Patient Type: [facility] Ref Lab ?? Service: FISHING LURE ASSEMBLER Location: [facility] Physician(s): ??Montse Thompson M.D. Diagnosis: A. [...] Extremely scant fragments of unremarkable endocervical epithelium [facility]/10/29/2018 14:18 By this signature, I attest that [...] in aggregate. ??Filtered. ??Labeled C1. ??Jar 0. mr06/11/2310/27/2018 16:30 Deana Shelton MS, PA (ASC By this signature, I attest that the above diagnosis is based upon my personal examination of the slides(and/or other material). The performance characteristics of some immunohistochemical stains, fluorescence in-situ hybridization tests and immunophenotyping by flow cytometry cited in this report (if any) were determined by the Surgical Pathology Department at [facility] as part of an ongoing quality assurance monitor chassis program and in compliance with federally mandated [...] determined by the Surgical Pathology Department of [facility]. ??It has not been cleared or approved by the U. S. Food and Drug Administration. IMAGES AND SCANNED DOCUMENTS, IF INCLUDED, ONLY VIEWABLE IN PDF VERSION OF REPORT us Premal Ac Thompson MD LAB PATHOLOGY ORDERABLES Final Result PATHOLOGY [facility] 3rd Floor [place], [place] [phone] documented in this encounter Visit Diagnoses Diagnosis BRCA2 gene mutation positive in female- Primary Atypical glandular cells of undetermined significance (YRN) on cervical Pap smear BRCA2 gene mutation positive in female Atypical glandular cells of undetermined significance (YRN) on cervical Pap smear documented in this encounter Historical Medications * This list may reflect changes made after this encounter. sertraline (ZOLOFT) 50 mg tabletIndications :Anxiety with Depression Take 50 mg by mouth nightly 3 10/23/2018 03/23/2020 added in this encounter Care Teams Practice Architect Relationship Specialty Start Date End Date Hugo Smith MD PCP - General 11/04/17 09/27/21 Aft, Tony Machado MD PhD [address] [place] [address] Surgeon Surgical Oncology 11/22/17 Santiago Gilbert MD [address] [place] [address] Professional Nursing Tutor Gastroenterology 11/22/17 documented as of this encounter
--- OUTSIDE RECORDS SUMMARY | 2024-04-24 13:47 | XMS_ITS | Encounter Summary ---
Author Organization [facility] Address [address] [place] [address] Phone Care Team Providers Care Stove Mounter Name Role Phone Ravi Smith MD Primary Care Provider [phone] Aft, Kianna Machado MD PhD Unavailable [phone] Santiago Gilbert MD Unavailable Encounter Details Date Type Department Care Team (Late st Contact Info) Description 10/02/[address] 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 Ventura, Aleah Gerber, 59 [facility] ER on 09/25/18 for COPD exacerbation. Attached are the records. She sent below message through [employer] today. Magnesium was 1.1 on arrival and [...] weeks surgery will need to be discussed [phone] Aleah Gerber 1955 10/01/18 Potassium and magnesium [...] stat mag on 10/09/18 at 10:00am. DB documented in this encounter Plan of Treatment Not on file documented as of this encounter Visit Diagnoses Not on filedocumented in this encounter Care Teams Stove Mounter Relationship Specialty Start Date End Date Ravi Smith MD PCP - General 11/04/17 09/27/21 Aft, Kianna Machado MD PhD [address] [place] [address] Surgeon Surgical Oncology 11/22/17 Santiago Gilbert MD [address] [place] [address] Handle Bender Gastroenterology 11/22/17 documented as of this encounter
--- OUTSIDE RECORDS SUMMARY | 2024-04-24 13:47 | XMS_ITS | Encounter Summary ---
Author Organization [facility] Address [address] [place] [address] Phone Care Team Providers Care Parts Assembler Name Role Phone Ravi Smith MD Primary Care Provider [phone] Aft, Kianna Machado MD PhD Unavailable [phone] Santiago Gilbert MD Unavailable [phone] Encounter Details Date Type Department Care Team (Latest Contact Info) Description 10/02/2018 9:45 AM CDT Clinical Support [facility] Oncology [address] [place] [address] Malignant neoplasm of descending colon (CMS/HCC); Malignant [...] file 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 Gender Identity Not on file Sexual Orientation Not on file documented as of this encounter Plan of Treatment Not on file documented as of this encounter Procedures Procedure Name Priority Date/Time Associated Diagnosis Comments MAGNESIUM STAT 10/02/2018 9:45 AM CDT Malignant neoplasm of descending colon (CMS/HCC) Malignant neoplasm of upper-inner quadrant of left breast in female, 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) BASIC METABOLIC PANEL STAT 10/02/2018 9:45 AM CDT Malignant neoplasm of descending colon (CMS/HCC) Malignant neoplasm of upper-inner quadrant of left breast in female, 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) documented in this encounter Results * Magnesium (10/02/2018 9:45 AM CDT) Magnesium 1.6 1.4 - 2.5 mg/dL [facility] Blood specimen (specimen) 10/02/2018 9:45 AM CDT 10/02/2018 9:57 AM CDT Narrative [facility] - 10/02/2018 10:19 AM CDT us Abbi Ventura MD LAB BLOOD ORDERABLES Final Resul t [facility] Department [place] [address] * Basic metabolic panel (10/02/2018 9:45 AM CDT) Pathologist [facility] Sodium 142 135 - 145 mmol/L [facility] Potassium, pl 3.8 3.3 - 4.9 mmol/L [facility] Chloride 106 97 - 110 mmol/L [facility] CO2 27 22 - 32 mmol/L [facility] Anion gap 9 2 - 15 mmol/L [facility] BUN 14 8 - 25 mg/dL [facility] Creatinine 1.06 0.60 - 1.10 mg/dL [facility] Glucose 134 70 - 199 mg/dL [facility] Comment: Interpretive Data Fasting glucose [...] 2017. Calcium 9.4 8.5 - 10.3 mg/dL [facility] Blood specimen (specimen) 10/02/2018 9:45 AM CDT 10/02/2018 9:57 AM CDT Narrative [facility] - 10/02/2018 10:26 AM CDT us Abbi Ventura MD LAB BLOOD ORDERABLES Final Resul t [facility] Department [place] [address] documented in this encounter Visit Diagnoses Diagnosis 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) Malignant neoplasm 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, estrogen receptor negative (HCC) documented in this encounter Care Teams Parts Assembler Relationship Specialty Start Date End Date Ravi Smith MD PCP - General 11/04/17 09/27/21 Aft, Kianna Machado MD PhD [address] [place] [address] Surgeon Surgical Oncology 11/22/17 Santiago Gilbert MD [address] [place] [address] Automatic Packer Operator Gastroenterology 11/22/17 documented as of this encounter
--- OUTSIDE RECORDS SUMMARY | 2024-04-24 13:47 | XMS_ITS | Encounter Summary ---
Author Organization [facility] Address [address] [place] [address] Phone Care Team Providers Care Manager Technology Name Role Phone Ravi Smith MD Primary Care Provider [phone] Aft, Kianna Machado MD PhD Unavailable [phone] Santiago Gilbert MD Unavailable [phone] Encounter Details Date Type Department Care Team (Latest Contact Info) Description 11/05/2018 1:00 PM CDT Clinical Support [facility] Oncology [address] [place] [address] Hypomagnesemia; Malignant neoplasm of upper-inner quadrant of left [...] file 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 Gender Identity Not on file Sexual Orientation Not on file documented as of this encounter Plan of Treatment Not on file documented as of this encounter Procedures Procedure Name Priority Date/Time Associated Diagnosis Comments MAGNESIUM Routine 11/05/2018 1:12 PM CDT Hypomagnesemia Malignant neoplasm of upper-inner quadrant of left breast in female, 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) documented in this encounter Results * Magnesium (11/05/2018 1:12 PM CDT) Magnesium 2.0 1.4 - 2.5 mg/dL [facility] Blood specimen (specimen) 11/05/2018 1:12 PM CDT 11/05/2018 1:16 PM CDT us Abbi Ventura MD LAB BLOOD ORDERABLES Final Resul t [facility] One [facility] Department [place] [address] documented in this encounter Visit Diagnoses Diagnosis Hypomagnesemia Disorders of magnesium metabolism Malignant neoplasm of upper-inner quadrant of left breast in female, estrogen receptor negative (HCC) documented in this encounter Orders Appointment Requests Count Last Ordered Date Fi rst Ordered Date ONCBCN LAB APPOINTMENT 1 11/05/2018 documented in this encounter Care Teams Manager Technology Relationship Specialty Start Date End Date Ravi Smith MD PCP - General 11/04/17 09/27/21 Aft, Kianna Machado MD PhD [address] [place] [address] Surgeon Surgical Oncology 11/22/17 Santiago Gilbert MD [address] [place] [address] Molder Punch Gastroenterology 11/22/17 documented as of this encounter
--- OUTSIDE RECORDS SUMMARY | 2024-04-24 13:48 | XMS_ITS | Encounter Summary ---
Author Organization [facility] Address [address] [place] [address] Phone Care Team Providers Care Computer Compositor Name Role Phone Ravi Smith MD Primary Care Provider [phone] Aft, Kianna Machado MD PhD Unavailable [phone] Santiago Gilbert MD Unavailable [phone] Encounter Details Date Type Department Care Team (Late st Contact Info) Description 08/06/2018 Orders Only [facility] Oncology [address] [place] [address] Dinorah Brizuela, KAM [address] [place] [address] Social History Tobacco Use Types Packs/Day Years Used Date Smoking Tobacco: Former Cigarettes 2015 Smokeless Tobacco: Never Alcohol Use Standard Drinks/Week Comments Yes 0 (1 standard drink = 0.6 oz pur e alcohol) socially Comments No Sex and Gender Information Value Date Recorded Sex Assigned at Not on file 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
--- OUTSIDE RECORDS SUMMARY | 2024-04-24 13:48 | XMS_ITS | Encounter Summary ---
Author Organization [facility] Address [address] [place] [address] Phone Care Team Providers Care Commercial Interior Designer Name Role Phone Ravi Smith MD Primary Care Provider [phone] Aft, Kianna Machado MD PhD Unavailable [phone] Santiago Gilbert MD Unavailable [phone] Encounter Details Date Type Department Care Team (Late st Contact Info) Description 08/08/2018 Orders Only [facility] Oncology [address] [place] [address] Abbi Ventura MD [address] [facility] [address] [place] [address] Encounter for person encountering health services; Malignant neoplasm of upper-inner quadrant of left [...] on file 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 Gender Identity Not on file Sexual Orientation Not on file documented as of this encounter Plan of Treatment Not on file documented as of this encounter Results * (ABNORMAL) Comprehensive metabolic panel (08/12/2018 8:25 AM CDT) Sodium 140 135 - 145 mmol/L [facility] Potassium, pl 3.8 3.3 - 4.9 mmol/L [facility] Chloride 105 97 - 110 mmol/L [facility] CO2 24 22 - 32 mmol/L [facility] Anion gap 11 2 - 15 mmol/L [facility] BUN 19 8 - 25 mg/dL [facility] Creatinine 1.27(H) 0.60 - 1.10 mg/dL [facility] Glucose 174 70 - 199 mg/dL [facility] Comment: Interpretive Data Fasting glucose [...] interpretive data was last revised 2017. Calcium 9.0 8.5 - 10.3 mg/dL [facility] Bilirubin, total 0.5 0.1 - 1.2 mg/dL [facility] Protein, pl 6.7 6.5 - 8.5 g/dL [facility] Albumin 4.0 3.5 - 5.0 g/dL [facility] Alk phos 84 40 - 130 Units/L [facility] ALT 16 7 - 45 Units/L [facility] AST 24 10 - 45 Units/L [facility] Blood specimen (specimen) 08/12/2018 8:25 AM CDT 08/12/2018 8:28 AM CDT Narrative [facility] - 08/12/2018 8:51 AM CDT us Jamaica Montoya NP LAB BLOOD ORDERABLES Final Result [facility] One [facility] Department [place] [address] * (ABNORMAL) CBC with auto differential (08/12/2018 8:25 AM CDT) WBC 6.4 3.8 - 9.9 K/cumm [facility] Hgb 8.2(L) 11.9 - 15.5 g/dL [facility] Hct 25.5(L) 35.6 - 45.5 % [facility] Plt 160 150 - 400 K/cumm [facility] MPV 9.0(L) 9.1 - 12.3 fL [facility] RBC 2.57(L) 3.90 - 5.20 M/cumm [facility] MCV 99.2(H) 81.3 - 96.4 fL [facility] MCH 31.9 27.1 - 33.3 pg [facility] MCHC 32.2(L) 32.3 - 35.7 g/dL [facility] RDW CV 16.0(H) 11.1 - 14.9 % [facility] RDW SD 56.4(H) 35.7 - 48.1 fL [facility] NRBC abs 0.00 0.00 - 0.01 K/cumm [facility] Blood specimen (specimen) 08/12/2018 8:25 AM CDT 08/12/2018 8:28 AM CDT Narrative [facility] - 08/12/2018 8:32 AM CDT us Jamaica Montoya PATIENT COORDINATOR FRONT DESK LAB BLOOD ORDERABLES Final Result [facility] One [facility] Department [place] [address] documented in this encounter Visit Diagnoses Diagnosis Encounter for person encountering health services Malignant neoplasm of upper-inner quadrant of left breast in female, estrogen receptor negative (HCC) Encounter for person encountering health services Malignant neoplasm of upper-inner quadrant of left breast in female, estrogen receptor negative (HCC) documented in this encounter Orders Appointment Requests Count Last Ordered Date Fi rst Ordered Date ONCBCN LAB APPOINTMENT 1 08/12/2018 ONCBCN RETURN CHEMO 2HRS 1 08/12/2018 documented in this encounter Care Teams Commercial Interior Designer Relationship Specialty Start Date End Date Ravi Smith MD PCP - General 11/04/17 09/27/21 Aft, Kianna Machado MD PhD [address] [place], [place] [address] Surgeon Surgical Oncology 11/22/17 Santiago Gilbert MD [address] [place] [address] Benefits Director Gastroenterology 11/22/17 documented as of this encounter
--- OUTSIDE RECORDS SUMMARY | 2024-04-24 13:48 | XMS_ITS | Encounter Summary ---
Author Organization [facility] Address [address] [place] [address] Phone Care Team Providers Care Solar Panel Installation Supervisor Name Role Phone Ravi Smith MD Primary Care Provider [phone] Aft, Kianna Machado MD PhD Unavailable [phone] Santiago Gilbert MD Unavailable [phone] Reason for Visit * Reason Onset Date Comments Med Management 08/28/2018 Encounter Details Date Type Department Care Team (Late st Contact Info) Description 08/28/2018 Telephone [facility] [address] [facility] 6th [place] [address] [place] [address] Danielle Spencre Med Management Social History Tobacco Use Types Packs/Day Years Used Date Smoking Tobacco: Former Cigarettes 2015 Smokeless Tobacco: Never Alcohol Use Standard Drinks/Week Comments Yes 0 (1 standard drink = 0.6 oz pur e alcohol) socially Comments No Sex and Gender Information Value Date Recorded Sex Assigned at Not on file 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 I told the patient that please don't take it before she arrives to the MRI place for safety issue. * Telephone Encounter - JoahnnaDanielle gil - 08/28/2018 3:07 PM CDT Ms Gerber LM that she is scheduled for an MRI on Saturday and she thinks Dr. Obando was planning to send some valium for her to take prior to the exam. She has not received it in the mail and she isworried. [phone]. documented in this encounter Plan of Treatment Not on file documented as of this encounter Visit Diagnoses Not on filedocumented in this encounter Care Teams Solar Panel Installation Supervisor Relationship Specialty Start Date End Date Ravi Smith MD PCP - General 11/04/17 09/27/21 Aft, Kianna Machado MD PhD [address] [place] [address] Surgeon Surgical Oncology 11/22/17 Santiago Gilbert MD [address] [place] [address] Art Therapist Gastroenterology 11/22/17 documented as of this encounter
--- OUTSIDE RECORDS SUMMARY | 2024-04-24 13:48 | XMS_ITS | Encounter Summary ---
Author Organization [facility] Address [address] [place] [address] Phone Care Team Providers Care Starch Treating Assistant Name Role Phone Ravi Smith MD Primary Care Provider [phone] Kianna Bunch MD PhD Unavailable [phone] Santiago Gilbert MD Unavailable [phone] Encounter Details Date Type Department Care Team (Late st Contact Info) Description 08/12/2018 Orders Only [facility] Oncology [address] [place] [address] Fatemeh Zarate RN Dehydration (Primary Dx) Social History Tobacco Use Types Packs/Day Years Used Date Smoking Tobacco: Former Cigarettes 2015 Smokeless Tobacco: Never Alcohol Use Standard Drinks/Week Comments Yes 0 (1 standard drink = 0.6 oz pur e alcohol) socially Comments No Sex and Gender Information Value Date Recorded Sex Assigned at Not on file 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 Female 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 Gender Identity Not on file Sexual Orientation Not on file documented as of this encounter Plan of Treatment Not on file documented as of this encounter Visit Diagnoses Diagnosis Dehydration- Primary documented in this encounter Care Teams Starch Treating Assistant Relationship Specialty Start Date End Date Ravi Smith MD PCP - General 11/04/17 09/27/21 AftKianna MD PhD [address] [place] [address] Surgeon Surgical Oncology 11/22/17 Santiago Gilbert MD [address] [place] [address] Mental Health Therapist Gastroenterology 11/22/17 documented as of this encounter
--- OUTSIDE RECORDS SUMMARY | 2024-04-24 13:48 | XMS_ITS | Encounter Summary ---
Author Organization [facility] Address [address] [place] [address] Phone Care Team Providers Care Rail Switchman Name Role Phone Ravi Smith MD Primary Care Provider [phone] Aft, Kianna Machado MD PhD Unavailable [phone] Santiago Gilbert MD Unavailable [phone] Reason for Visit * Episode Based Medications (Routine) - Closed Specialty Diagnoses / Procedures Referred By Vijaya t Referred To Contact Oncology Diagnoses Malignant neoplasm of upper-inner quadrant of left breast in female, estrogen receptor negative (HCC) Encounter for person encountering health services Procedures [place] DOXORUBIC HCL 10 MG VL CHEMO [place] CYCLOPHOSPHAMIDE 100 MG INJ [place] INJECTION, PEGFILGRASTIM 6MG [place] PALONOSETRON HCL [place] FOSAPREPITANT INJECTION Dose-Dense AC: DOXOrubicin (ADRIAMYCIN) / Cyclophosphamide) with Abbi Chavez MD [address] [place] [address] Phone: tel: fax: [facility] Oncology [address] [place] [address] Phone: tel: fax: Referral ID Status Reason Start Date Expiration Date Visits Re quested Visits Authorized [id number] Closed 06/25/2018 09/02/2018 1 36 Encounter Details Date Type Department Care Team (Latest Contact Info) Description 07/23/2018 11:30 AM CDT Clinical Support [facility] Oncology [address] [place] [address] Encounter for person encountering health services; Malignant [...] on file 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 Gender Identity Not on file Sexual Orientation Not on file documented as of this encounter Plan of Treatment Not on file documented as of this encounter Procedures Procedure Name Priority Date/Time Associated Diagnosis Comments DIFFERENTIAL AUTO Routine 07/23/2018 11: 16 AM CDT Encounter for person encountering health services Malignant neoplasm of upper-inner quadrant of left breast in female, 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) CBC WITH AUTO DIFFERENTIAL Routine 07/23/2018 11:16 AM CDT Encounter for person encountering health services Malignant neoplasm of upper-inner quadrant of left breast in female, 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) MANUAL DIFFERENTIAL Routine 07/23/2018 1 1:16 AM CDT Encounter for person encountering health services Malignant neoplasm of upper-inner quadrant of left breast in female, 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) COMPREHENSIVE METABOLIC PANEL STAT 07/23/2018 11:16 AM CDT Encounter for person encountering health services Malignant neoplasm of upper-inner quadrant of left breast in female, 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) documented in this encounter Results * (ABNORMAL) Manual Differential (07/23/2018 11:16 AM CDT) Differential Auto [facility] RBC morphology Present(A ) [facility] Anisocytosis Slight(A) [facility] Platelet estimate Decreased (A) [facility] Blood specimen (specimen) 07/23/2018 11:16 AM CDT 07/23/2018 11:16 AM CDT Narrative [facility] - 07/23/2018 12:35 PM CDT us Abbi Ventura MD LAB BLOOD ORDERABLES Final Resul t [facility] Department [place] [address] * (ABNORMAL) Differential, auto (07/23/2018 11:16 AM CDT) Neutrophil abs 6.7(H) 1.7 - 6.5 K/cumm [facility] Imm gran abs 1.8(H) 0.0 - 0.1 K/cumm [facility] Lymphocyte abs 0.7(L) 0.8 - 3.3 K/cumm [facility] Monocyte abs 0.7 0.2 - 0.8 K/cumm [facility] Eosinophil abs 0.0 0.0 - 0.5 K/cumm [facility] Basophil abs 0.0 0.0 - 0.1 K/cumm [facility] Neutrophil pct 66.6 % [facility] Comment: Interpretive Data Percent cell count reference ranges are not reported, since discordance with absolute values may lead to misinterpretation of CBC data. Current Interpretive Data was last revised on 2017. Imm gran pct 18.5 % [facility] Comment: Interpretive Data Percent cell count reference ranges are not reported, since discordance with absolute values may lead to misinterpretation of CBC data. Current Interpretive Data was last revised on 2017. Lymphocyte pct 6.9 % [facility] Comment: Interpretive Data Percent cell count reference ranges are not reported, since discordance with absolute values may lead to misinterpretation of CBC data. Current Interpretive Data was last revised on 2017. Monocyte pct 7.3 % [facility] Comment: Interpretive Data Percent cell count reference ranges are not reported, since discordance with absolute values may lead to misinterpretation of CBC data. Current Interpretive Data was last revised on 2017. Eosinophil pct 0.3 % [facility] Comment: Interpretive Data Percent cell count reference ranges are not reported, since discordance with absolute values may lead to misinterpretation of CBC data. Current Interpretive Data was last revised on 2017. Basophil pct 0.4 % [facility] Comment: Interpretive Data Percent cell count reference ranges are not reported, since discordance with absolute values may lead to misinterpretation of CBC data. Current Interpretive Data was last revised on 2017. Blood specimen (specimen) 07/23/2018 11:16 AM CDT 07/23/2018 11:16 AM CDT Narrative [facility] - 07/23/2018 12:35 PM CDT us Abbi Ventura MD LAB BLOOD ORDERABLES Final Resul t [facility] Department [place] [address] * (ABNORMAL) CBC with auto differential (07/23/2018 11:16 AM CDT) WBC 10.0(H) 3.8 - 9.9 K/cumm [facility] Hgb 8.6(L) 11.9 - 15.5 g/dL [facility] Hct 25.3(L) 35.6 - 45.5 % [facility] Plt 115(L) 150 - 400 K/cumm [facility] MPV 9.8 9.1 - 12.3 fL [facility] RBC 2.57(L) 3.90 - 5.20 M/cumm [facility] MCV 98.4(H) 81.3 - 96.4 fL [facility] MCH 33.5(H) 27.1 - 33.3 pg [facility] MCHC 34.0 32.3 - 35.7 g/dL [facility] RDW CV 13.3 11.1 - 14.9 % [facility] RDW SD 47.4 35.7 - 48.1 fL [facility] NRBC abs 0.07(H) 0.00 - 0.01 K/cumm [facility] Blood specimen (specimen) 07/23/2018 11:16 AM CDT 07/23/2018 11:16 AM CDT Narrative [facility] - 07/23/2018 11:20 AM CDT us Abbi Ventura MD LAB BLOOD ORDERABLES Final Resul t [facility] Department [place] [address] * (ABNORMAL) Comprehensive metabolic panel (07/23/2018 11:16 AM CDT) Sodium 141 135 - 145 mmol/L [facility] Potassium, pl 3.1(L) 3.3 - 4.9 mmol/L [facility] Chloride 102 97 - 110 mmol/L [facility] CO2 27 22 - 32 mmol/L [facility] Anion gap 12 2 - 15 mmol/L [facility] BUN 11 8 - 25 mg/dL [facility] Creatinine 1.00 0.60 - 1.10 mg/dL [facility] Glucose 285(H) 70 - 199 mg/dL [facility] [...] interpretive data was last revised 2017. Calcium 9.1 8.5 - 10.3 mg/dL [facility] Bilirubin, total 0.3 0.1 - 1.2 mg/dL [facility] Protein, pl 6.4(L) 6.5 - 8.5 g/dL [facility] Albumin 3.9 3.5 - 5.0 g/dL [facility] Alk phos 83 40 - 130 Units/L [facility] ALT 18 7 - 45 Units/L [facility] AST 27 10 - 45 Units/L [facility] Blood specimen (specimen) 07/23/2018 11:16 AM CDT 07/23/2018 11:16 AM CDT Narrative [facility] - 07/23/2018 11:45 AM CDT us Abbi Ventura MD LAB BLOOD ORDERABLES Final Resul t [facility] Department [place] [address] documented in this encounter Visit Diagnoses Diagnosis Encounter for person encountering health services Malignant neoplasm of upper-inner quadrant of left breast in female, estrogen receptor negative (HCC) documented in this encounter Orders Appointment Requests Count Last Ordered Date Fi rst Ordered Date ONCBCN LAB APPOINTMENT 1 07/23/2018 documented in this encounter Care Teams Rail Switchman Relationship Specialty Start Date End Date Ravi Smith MD PCP - General 11/04/17 09/27/21 Aft, Kianna Machado MD PhD [address] [place] [address] Surgeon Surgical Oncology 11/22/17 Santiago Gilbert MD [address] [place] [address] Record Keeper Gastroenterology 11/22/17 documented as of this encounter
--- OUTSIDE RECORDS SUMMARY | 2024-04-24 13:48 | XMS_ITS | Encounter Summary ---
Author Organization [facility] Address [address] [place] [address] Phone Care Team Providers Care Chain Maker Name Role Phone Ravi Smith MD Primary Care Provider [phone] Aft, Kianna Machado MD PhD Unavailable [phone] Santiago Gilbert MD Unavailable [phone] Encounter Details Date Type Department Care Team (Late st Contact Info) Description 08/06/2018 Documentation [facility] Oncology [address] [place] [address] Alexia Olmos, [facility] Social History Tobacco Use Types Packs/Day Years Used Date Smoking Tobacco: Former Cigarettes 2015 Smokeless Tobacco: Never Alcohol Use Standard Drinks/Week Comments Yes 0 (1 standard drink = 0.6 oz pur e alcohol) socially Comments No Sex and Gender Information Value Date Recorded Sex Assigned at Not on file 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 Gender Identity Not on file Sexual Orientation Not on file documented as of this encounter Progress Notes * Alexia Olmos MA - 08/06/2018 10:07 AM CDT Activity: Three minute walk Liter patient currently on: Room Air 1000-O2 sat= 96% at rest on RA (room air) pulse: 115 1002-O2 sat= 97% with activity on RA pulse: 151 1003-O2 sat= 96% with activity on RA pulse: 192 (had to return to room, pt unable to continue walking due to SOB and pulse) 1005-O2 sat= 96% at rest on RA pulse: 123 documented in this encounter Plan of Treatment Not on file documented as of this encounter Visit Diagnoses Not on filedocumented in this encounter Care Teams Chain Maker Relationship Specialty Start Date End Date Ravi Smith MD PCP - General 11/04/17 09/27/21 Aft, Kianna Machado MD PhD [address] [place] [address] Surgeon Surgical Oncology 11/22/17 Santiago Gilbert MD [address] [place] [address] Cork Insulation Installer Gastroenterology 11/22/17 documented as of this encounter
--- OUTSIDE RECORDS SUMMARY | 2024-04-24 13:48 | XMS_ITS | Encounter Summary ---
Author Organization [facility] Address [address] [place] [address] Phone Care Team Providers Care Day Guard Name Role Phone Ravi Smith MD Primary Care Provider [phone] Aft, Kianna Machado MD PhD Unavailable [phone] Santiago Gilbert MD Unavailable [phone] Reason for Referral * Cardiology (Routine) - Closed Specialty Diagnoses / Procedures Referred By Vijaya t Referred To Contact Diagnoses Malignant neoplasm of upper-inner quadrant of left breast in female, estrogen receptor negative (HCC) Shortness of breath Procedures Transthoracic Echo Complete W Doppler/CF Birdie Ventura MD Phone: tel: fax: [facility] (All Locations) Referral ID Status Reason Start Date Expiration Date Visits Re quested Visits Authorized [id number] Closed 08/06/2018 02/15/2020 1 1 Reason for Visit * Oncology (Routine) - Closed Specialty Diagnoses / Procedures Referred By Contronny t Referred To Contact Medical Oncology / Oncology Diagnoses 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 Ventura to discuss TC Procedures ONCBCN CLINIC APPOINTMENT REQUEST RETURN [place] Montoya, KAM [address] [place] [address] Phone: tel: fax: Birdie Ventura MD [address] [place] [address] Phone: tel: fax: Referral ID Status Reason Start Date Expiration Date V isits Requested Visits Authorized [id number] Closed Specialty Services Required 06/04/2018 05/05/2019 99 99 Encounter Details Date Type Department Care Team (Late st Contact Info) Description 08/06/2018 9:15 AM CDT Office Visit [facility] Oncology [address] [place] [address] Birdie Ventura MD [address] [place] [address] Malignant neoplasm of upper-inner quadrant of left breast in female, 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) (Primary Dx); Encounter for person encountering health services; Shortness of breath Social History Tobacco Use Types Packs/Day Years Used Date Smoking Tobacco: Former Cigarettes 2015 Smokeless Tobacco: Never Alcohol Use Standard Drinks/Week Comments Yes 0 (1 standard drink = 0.6 oz pur e alcohol) socially Comments No Sex and Gender Information Value Date Recorded Sex Assigned at Not on file 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 Gender Identity Not on file Sexual Orientation Not on file documented as of this encounter Last Filed Vital Signs Vital Sign Reading Time Taken Comments Blood Pressure 121/73 08/06/2018 9:32 AM CDT Pulse 128 08/06/2018 9:32 AM CDT Temperature 36.3 ??C (97.3 ??F) 08/06/2018 9:32 AM CD T Respiratory Rate 22 08/06/2018 9:32 AM CDT Oxygen Saturation 96% 08/06/2018 9:32 AM CDT Inhaled Oxygen Concentration - - Weight 102 kg (224 lb 14.4 oz) 08/06/2018 9:32 A M CDT Height - - Body Mass Index 34.2 07/23/2018 12:18 PM CDT documented in this encounter Progress Notes * Dinorah Brizuela NP - 08/06/2018 9:15 AM CDT The Patient Identifying Data: Aleah [...] chemotherapy for breast cancer started on 06/25/18 Interval History Patient here for consideration of cycle 4 of A/C at a reduced dose. Her fatigue and SOB continue toworsen with each dose of AC, spending the majority of each day in her recliner. She has baseline SOB, but feels it has worsened with each dose of therapy. She completes all of her ADL's, but her does all of the housework. Her appetite is poor and she has lost another 8 pounds over the last 2 weeks. She continues to have some degree of diarrhea improved with 2-3 imodium/day. Her neuropathyis unchanged but most noticeable in her left hand and B feet. She continues to report unsteadiness,but denies any falls. She typically uses a cane, but didn't bring it today. She has nausea w/o vomiting, which is unchanged. She continues to report intermittent brownish-bloody vaginal drainage, buthas experienced this with all of her chemotherapy (even for her colon cancer chemotherapy). She continues to develop some degree of mucositis (mouth tenderness w/o ulcers) and using salt water rinsesthroughout the day. She admits that she is not drinking enough throughout the day. She has left breast tenderness and reports 1 episode of breast discharge since her last visit. Review of Systems Review of systems positive for symptoms as per interval history. All other review of systems negative. Objective Vitals: Vitals BP 121/73 (BP Location: Right arm) Pulse (!) 128 Temp 36.3 ??C (97.3 ??F) (Oral) Resp 22 Wt 102 kg (224 lb 14.4 oz) SpO2 96% BMI 34.20 kg/m?? PERFORMANCE STATUS: ECOG 3 SKIN: Normal [...] palpable cervical, supraclavicular, submandibular adenopathy. BREAST: Right: Thick breast tissue without any abnormal masses, skin changes, or discharge. Left: s/p partial mastectomy with healed surgery scar. Breast tissue is thickened without any abnormal masses, skin changes, or discharge. ACCESS: L infraclav port-a-cath in place and accessed. Lab/Radiology/Diagnostic Review: Hematology Lab History Some values may be hidden. Unless noted otherwise, only the newest values recorded on each date aredisplayed. Labs - Hematology Latest Ref Range 06/25/18 07/09/18 07/23/18 08/06/18 WBC 3.8 - 9.9 K/cumm 7.1 8.6 10.0 (A) 13.8 (A) Total Hb, POC 11.9 - 15.5 g/dL 10.1 (A) 9.8 (A) 8.6 (A) 8.8 (A) Hct 35.6 - 45.5 % 31.3 (A) 29.7 (A) 25.3 (A) 26.2 (A) Plt 150 - 400 K/cumm 181 143 (A) 115 (A) 97 (A) Neutrophil abs 1.7 - 6.5 K/cumm 5.2 6.2 6.7 (A) 10.3 (A) (A) Abnormal value Lab Results Component Value Date SODIUM 145 08/06/2018 POTASSIUM 3.5 08/06/2018 CO2 25 08/06/2018 BUNSER 16 08/06/2018 GLUCOSE 190 08/06/2018 CREATININE 1.22 (H) 08/06/2018 CALCIUM 10.1 08/06/2018 CHLORIDE 106 08/06/2018 ALBUMIN 4.2 08/06/2018 AST 25 08/06/2018 ALT 19 08/06/2018 ALKPHOS 103 08/06/2018 BILITOT 0.5 08/06/2018 PROT 6.7 08/06/2018 ANIONGAP 14 08/06/2018 Tumor Marker History Some values may be hidden. Unless noted otherwise, only the newest values recorded on each date aredisplayed. Tumor Markers Latest Ref Range 03/19/18 04/09/18 05/07/18 05/21/18 CEA <=5.0 ng/mL 4.8 4.2 5.0 4.0 Comments are available for some flowsheets but are not being displayed. Recent labs, radiology and pathology reviewed in [facility] ASSESSMENT: T4bN0 disease, Stage IIC colon adenocarcinoma: Completed adjuvant chemotherapy 05/2018. 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 Tolerating A/C marginally with grade 3 fatigue and grade 2 dyspnea. Mucositis is at a grade 1 and grade 1 anemia. Sinus tachycardia a grade 1 and improves with rest. MyRisk panel is positive for BRCA2 mutation, and VUS in BRIP1 and NBN: patient wants to hold off prophylactic mastectomy at this point. Prophylactic BSO will be considered in the future. Depression/anxiety: follow up by Dr. Simms as needed (not currently seeing). 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 Hypokalemia: on oral replacement. Continue to monitor 5 min walking O2 sat never dropped below 96%, but was only able to tolerate walking for 3 minutes when her HR got into the 190's per the O2 sat monitor. Her HR returned to 120's quickly after sittingback down. PLAN: Hold C4 for the times being. Obtain ECHO today or tomorrow to eval cardiac function. Baseline ECHO from 06/2018 was 65%. If LVEF is >50% with proceed with C4 of AC but perhaps with a 50% reduce reduction d/t various tolerance issues. Will receive extra fluids with C4. If ECHO is ok and patient receives C4, would like to see her back in clinic 1-2 weeks after her last dose just to reevaluate given her toxicity. Meeting with Dr. Bunch on 08/11 to discuss left breast re-excision after 4 cycles of AC, with mammo andUS prior. F/u PCP regarding other medical issues. Dinorah Brizuela NP documented in this encounter Plan of Treatment Not on file documented as of this encounter Results * TRANSTHORACIC ECHO (TTE) COMPLETE W DOPPLER/CF WO CONTRAST (08/07/2018 8:45 AM CDT) Anatomical Region Laterality Modality Ultrasound 08/07/2018 8:00 AM CDT Narrative 08/07/2018 9:22 AM CDT Patient name: Aleah Gerber Date of test: 08/07/2018 Type of test: TTE w/Doppler [facility] #: [id number] Date of : 1955 (F) Information Technology Professor: Olivia Narayanan [facility] RVT Referring Physician: BIRDIE VENTURA MD Contrast Agent: Contrast Administered by: Supervised/Interpreted by: Wilberto ??MD Crystal Diagnosis: High Risk Meds Location: [facility] Reason for test: High Risk Meds, Shortness of Breath MV Structure: Normal, ?MV Motion: Normal, ?? Mitral Annulus: Normal AV Structure: tricuspid and is Normal, ?? AV Motion: Normal Aotic root: Normal, ?TM: Normal, ?? PV: Normal Valvular Vegetations: none seen, ?Mass/Thrombi: none seen RA: Normal Measurements: ?M-Mode ?Normal ? Aotic Root: ? <3.8 ? LA: ? <3.8 ? RV: ? <2.8 ? LV(ED): ? <5.7 ? LV(ES): ? Variable ?2D Linear Normal ? Aotic Root: 3.0 cm ?<3.6 ? Ao Indexed: 1.4 cm/M2 <2.0 ? LA: ? 3.2 cm ?<3.8 ? RV: ? 2.5 cm ?<4.2 ? LV(ED): ? 4.5 cm ?<5.3 ? LV(ES): ? 3.3 cm ?<3.5 ?2D Vol. ?? Normal ?Indexed ?? Indexed Normal RA: ? 15.0 ml ? 7.0 ml/M2 ? 9-33 ? LA: ? 26.0 ml ? 12.1 ml/M2 ?16-34 ? RV: ? <11.6 ? LV(ED): ? 31.0 ml ?? 46-106 ?14.4 ml/M2 ?<62 ? LV(ES): ? 11.0 ml ?? 14-42 ? 5.1 ml/M2 ? <25 ?3D Vol. ? Indexed Normal LV(ED): ?<62 ? LV(ES): ?<24 ? LV EF: 65 % ?? (Normal: >=54%) ?? LV Septum: 1.2 cm ?(Normal: <0.9 cm) Wall Motion Scoring (1=Normal 2=Hypo 3=Akinetic 4=Dyskin./Aneurysm 0=Not visualized) Parasternal Long [place]:MAS=1 BAS=1 MP=1 BP=1 Parasternal Short [place]:MAS=1 MS=1 OR=1 MP=1 ML=1 MA=1 Apical 4 Chambers:=1 MS=1 BS=1 BL=1 OR=1 AL=1 Apical 2 Chambers:AI=1 OR=1 BI=1 BA=1 MA=1 AA=1 LV Global Longitudinal Strain: -22% ??(Normal <-19%) RV Global Longitudinal Strain: LV Function: Normal LV Ejection Fraction, ??(EF=65%) RV Function: Normal Septal Motion: Normal Pericardial Effusion: none seen Atrial Septum: atrial septal aneurysm DOPPLER/COLOR FOLOW DOPPLER RESULTS: Diastolic Function: Normal Tricuspid Valve: trace TR Pulmonic Valve: normal PV AV Regurgitation: No AR seen AV Stenosis: no AV Area: ??cm2 AV Pressure Gradient (mmHg): Mean: 0, Peak:0 MV Regurgitation: No MR seen MV Stenosis: ??no MS MV Area: ??cm2 MV Pressure Gradient (mmHg): Mean: 0 MV ERO: ??cm Regurg. Vol.: ??ml/beat Regurg. Frac.: ??% PA Pressure: ??mmHg DOPPLER/COLOR FOLOW DOPPLER COMMENTS: No AR seen, No MR seen, no , ??no MS, trace TR, normal PV. Diastolic function: Normal SUMMARY: LV size is normal. LVEF 65% (GLS -22%). Wall motion is normal. RV size and function are normal. Diastolic function: normal. No significant valve disease. Unable to estimate PASP due to lack of adequate TR jet. IVC is not visualized. Confirmed on ??08/07/2018 - 09:22:30 by Wilberto ??MD Crystal By signing this report, the attending taxation accountant certifies that he or she has personally supervised and interpreted the echocardiogram and has reviewed and or edited and agrees with the written comments contained within the report. Procedure Note Wilberto Rojas MD - 08/07/2018 Patient name: Aleah Gerber Date of test: 08/07/2018 Type of test: TTE w/Doppler [facility] #: [id number] Date of : 1955 (F) Information Technology Professor: Olivia Narayanan [facility] RVT Referring Physician: BIRDIE VENTURA MD Contrast Agent: Contrast Administered by: Supervised/Interpreted by: Wilberto Rojas MD Diagnosis: High Risk Meds Location: [facility] Reason for test: High Risk Meds, Shortness of Breath MV Structure: Normal, MV Motion: Normal, Mitral Annulus: Normal AV Structure: tricuspid and is Normal, AV Motion: Normal Aotic root: Normal, TM: Normal, PV: Normal Valvular Vegetations: none seen, Mass/Thrombi: none seen RA: Normal Measurements: M-Mode Normal Aotic Root: <3.8 LA: <3.8 RV: <2.8 LV(ED): <5.7 LV(ES): Variable 2D Linear Normal Aotic Root: 3.0 cm <3.6 Ao Indexed: 1.4 cm/M2 <2.0 LA: 3.2 cm <3.8 RV: 2.5 cm <4.2 LV(ED): 4.5 cm <5.3 LV(ES): 3.3 cm <3.5 2D Vol. Normal Indexed Indexed Normal RA: 15.0 ml 7.0 ml/M2 9-33 LA: 26.0 ml 12.1 ml/M2 16-34 RV: <11.6 LV(ED): 31.0 ml 46-106 14.4 ml/M2 <62 LV(ES): 11.0 ml 14-42 5.1 ml/M2 <25 3D Vol. Indexed Normal LV(ED): <62 LV(ES): <24 LV EF: 65 % (Normal: >=54%) LV Septum: 1.2 cm (Normal: <0.9 cm) Wall Motion Scoring (1=Normal 2=Hypo 3=Akinetic 4=Dyskin./Aneurysm 0=Not visualized) Parasternal Long [place]:MAS=1 BAS=1 MP=1 BP=1 Parasternal Short [place]:MAS=1 MS=1 OR=1 MP=1 ML=1 MA=1 Apical 4 Chambers:=1 MS=1 BS=1 BL=1 OR=1 AL=1 Apical 2 Chambers:AI=1 OR=1 BI=1 BA=1 MA=1 AA=1 LV Global Longitudinal Strain: -22% (Normal <-19%) RV Global Longitudinal Strain: LV Function: Normal LV Ejection Fraction, (EF=65%) RV Function: Normal Septal Motion: Normal Pericardial Effusion: none seen Atrial Septum: atrial septal aneurysm DOPPLER/COLOR FOLOW DOPPLER RESULTS: Diastolic Function: Normal Tricuspid Valve: trace TR Pulmonic Valve: normal PV AV Regurgitation: No AR seen AV Stenosis: no AV Area: cm2 AV Pressure Gradient (mmHg): Mean: 0, Peak:0 MV Regurgitation: No MR seen MV Stenosis: no MS MV Area: cm2 MV Pressure Gradient (mmHg): Mean: 0 MV ERO: cm Regurg. Vol.: ml/beat Regurg. Frac.: % PA Pressure: mmHg DOPPLER/COLOR FOLOW DOPPLER COMMENTS: No AR seen, No MR seen, no , no MS, trace TR, normal PV. Diastolic function: Normal SUMMARY: LV size is normal. LVEF 65% (GLS -22%). Wall motion is normal. RV size and function are normal. Diastolic function: normal. No significant valve disease. Unable to estimate PASP due to lack of adequate TR jet. IVC is not visualized. Confirmed on 08/07/2018 - 09:22:30 by Wilberto Rojas MD By signing this report, the attending taxation accountant certifies that he or she has personally supervised and interpreted the echocardiogram and has reviewed and or edited and agrees with the written comments contained within the report. 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 dulaglutide (TRULICITY) 0.75 mg/0.5 mL pen injectorIndicati ons:type 2 diabetes mellitus,saturday Inject 0.75 mg under the skin every 7 days Saturday 1 sitaGLIPtin-metf ormin (JANUMET) 50-1,000 mg per tablet Take 1 tablet by mouth 2 (two) times a day with meals 9 added in this encounter Orders Appointment Requests Count Last Ordered Date Fi rst Ordered Date ONCBCN CLINIC APPOINTMENT REQUEST 1 019 documented in this encounter Care Teams Day Guard Relationship Specialty Start Date End Date Ravi Smith MD PCP - General 11/04/17 09/27/21 Aft, Kianna Machado MD PhD [address] [place] [address] Surgeon Surgical Oncology 11/22/17 Santiago Gilbert MD [address] [place] [address] [facility] Gastroenterology 11/22/17 documented as of this encounter
--- OUTSIDE RECORDS SUMMARY | 2024-04-24 13:48 | XMS_ITS | Encounter Summary ---
Author Organization [facility] Address [address] [place] [address] Phone Care Team Providers Care House Painting Instructor Name Role Phone Ravi Smith MD Primary Care Provider [phone] Aft, Kianna Machado MD PhD Unavailable [phone] Santiago Gilbert MD Unavailable [phone] Encounter Details Date Type Department Care Team (Late st Contact Info) Description 08/08/2018 Orders Only 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 Gender Identity Not on file Sexual Orientation Not on file documented as of this encounter Plan of Treatment Not on file documented as of this encounter Results * (ABNORMAL) Comprehensive metabolic panel (08/27/2018 11:03 AM CDT) Sodium 139 135 - 145 mmol/L [facility] Potassium, pl 3.4 3.3 - 4.9 mmol/L [facility] Chloride 104 97 - 110 mmol/L [facility] CO2 22 22 - 32 mmol/L [facility] Anion gap 13 2 - 15 mmol/L [facility] BUN 16 8 - 25 mg/dL [facility] Creatinine 1.24(H) 0.60 - 1.10 mg/dL [facility] Glucose 142 70 - 199 mg/dL [facility] Comment: Interpretive Data Fasting glucose [...] Calcium 9.2 8.5 - 10.3 mg/dL [facility] Bilirubin, total 0.5 0.1 - 1.2 mg/dL [facility] Protein, pl 6.8 6.5 - 8.5 g/dL [facility] Albumin 4.2 3.5 - 5.0 g/dL [facility] Alk phos 84 40 - 130 Units/L [facility] ALT 15 7 - 45 Units/L [facility] AST 21 10 - 45 Units/L [facility] Blood specimen (specimen) 08/27/2018 11:03 AM CDT 08/27/2018 11:04 AM CDT Narrative [facility] - 08/27/2018 11:25 AM CDT us Abbi Ventura MD LAB BLOOD ORDERABLES Final Resul t [facility] Department [place] [address] * (ABNORMAL) CBC with auto differential (08/27/2018 11:03 AM CDT) WBC 10.3(H) 3.8 - 9.9 K/cumm [facility] Hgb 8.1(L) 11.9 - 15.5 g/dL [facility] Hct 24.4(L) 35.6 - 45.5 % [facility] Plt 130(L) 150 - 400 K/cumm [facility] MPV 9.5 9.1 - 12.3 fL [facility] RBC 2.46(L) 3.90 - 5.20 M/cumm [facility] MCV 99.2(H) 81.3 - 96.4 fL [facility] MCH 32.9 27.1 - 33.3 pg [facility] MCHC 33.2 32.3 - 35.7 g/dL [facility] RDW CV 16.5(H) 11.1 - 14.9 % [facility] RDW SD 57.5(H) 35.7 - 48.1 fL [facility] NRBC abs 0.03(H) 0.00 - 0.01 K/cumm [facility] Blood specimen (specimen) 08/27/2018 11:03 AM CDT 08/27/2018 11:04 AM CDT Narrative [facility] - 08/27/2018 11:06 AM CDT us Abbi Ventura MD LAB BLOOD ORDERABLES Final Resul t [facility] Department [place] [address] documented in this encounter Visit Diagnoses Diagnosis [...] (HCC) documented in this encounter Care Teams House Painting Instructor Relationship Specialty Start Date End Date Ravi Smith MD PCP - General 11/04/17 09/27/21 Aft, Kianna Machado MD PhD [address] [place] [address] Surgeon Surgical Oncology 11/22/17 Santiago Gilbert MD [address] [place] [address] Oyster Opener Gastroenterology 11/22/17 documented as of this encounter
--- OUTSIDE RECORDS SUMMARY | 2024-04-24 13:48 | XMS_ITS | Encounter Summary ---
Author Organization [facility] Healthcare Address [address] [place] [address] Care Team Providers Care Big Data Software Engineer Name Role Phone Ravi Smith MD Primary Care Provider [phone] Kianna Bunch MD PhD Unavailable [phone] Santiago Gilbert MD Unavailable [phone] Reason for Referral * Diagnostic Imaging (Routine) - Closed Specialty Diagnoses / Procedures Referred By Vijaya simpson Referred To Contact Diagnoses History of breast cancer Procedures US Breast Left Limited Kianna Bunch MD PhD Phone: tel: fax: [address] [phone] Referral ID Status Reason Start Date Expiration Date Visits Re quested Visits Authorized [id number] Closed 07/22/2018 01/31/2020 1 1 Reason for Visit * Diagnostic Imaging (Routine) - Closed Specialty Diagnoses / Procedures Referred By Vijaya simpson Referred To Contact Diagnoses History of breast cancer Procedures Diagnostic Mammogram Bilateral W Mathew Diagnostic Mammogram Left W Mathew Kianna Bunch MD PhD Phone: tel: fax: [address] [address] Referral ID Status Reason Start Date Expiration Date Visits Re quested Visits Authorized [id number] Closed 07/22/2018 01/31/2020 1 1 Encounter Details Date Type Department Care Team (Latest Contact Info) Description 08/11/2018 11:44 AM CDT - 08/11/2018 11:59 PM CDT Hospital Encounter [facility] [address] [place] [address] Aft, Kianna Machado MD PhD [address] [place] [address] History of breast cancer Discharge Disposition: Discharge [...] on file Legal Sex Female 1:06 AM ASSESSMENT NURSE PRACTITIONER Gender Identity Not on file Sexual Orientation Not on file documented as of this encounter Medications at Time of Discharge ALPRAZolam (XANAX) 0.25 mg tablet Take 1 tablet (0.25 mg total) by mouth 3 (three) times a day as needed for anxiety 11/07/2017 al & mag hydroxide simethicone-diph enhydramine-lido eriberto-nystatin (MAGIC MOUTHWASH) suspension 5-1-2-1Indicatio ns:Chemotherapy- Induced Mucositis Swish and swallow 10 [...] by mouth every morning 0 02/24/2018 2 lidocaine-priloc andrew (EMLA) creamIndications :Administration of Local Anesthesia Apply topically as needed for pain. Apply to port 1 hour before use and cover with tape. 30 g 3 01/31/2018 9 ondansetron (ZOFRAN) 8 mg tablet Take 1 tablet (8 mg total) by mouth every 8 (eight) hours as needed for nausea or vomiting. . Take 1 tablet every 8 hours for nausea.prn 30 tablet 3 01/31/2018 9 polyethylene glycol (MIRALAX) 17 gram packetIndication [...] mg by mouth daily 9 sitaGLIPtin-metf ormin (JANUMET) 50-1,000 mg per tablet Take 1 tablet by mouth 2 (two) times a day with meals 9 documented as of this encounter Discharge Disposition Disposition Code Departure Means Destination Discharge to home or self care documented in this encounter Plan of Treatment Not on file documented as of this encounter Procedures Procedure Name Priority Date/Time Associated Diagnosis Comments US BREAST LEFT LIMITED Schedule Routine, Read Routine (OP Routine) 08/11/2018 1:29 PM CDT History of breast cancer DIAGNOSTIC MAMMOGRAM BILATERAL W MATHEW Schedule Routine, Read Routine (OP Routine) 08/11/2018 12:58 PM CDT History of breast cancer documented in this encounter Results * US Breast Left Limited (08/11/2018 1:29 PM CDT) Anatomical Region Laterality Modality Breast Left Ultrasound 08/11/2018 2:07 PM CDT Impressions 08/11/2018 2:07 PM CDT No suspicious finding in either breast. OVERALL FINAL ASSESSMENT: BI-RADS Category 2: Benign. Annual diagnostic mammography is recommended. Electronically signed by: Elie Bradley M.D. Narrative 08/11/2018 2:07 PM CDT EXAMINATION: BILATERAL DIGITAL DIAGNOSTIC MAMMOGRAM INCLUDING CAD AND BILATERAL DIGITAL BREAST TOMOSYNTHESIS; LEFT BREAST ULTRASOUND HISTORY: 63-year-old woman with history of left breast invasive ductal carcinoma status post left breast conservation therapy in January 2018. ??She reports one episode of clear spontaneous left nipple discharge approximately 4 weeks ago. COMPARISON: Multiple prior examinations, dating back to 12/02/2006. TECHNIQUE: ??Full field digital mammographic views of BOTH breasts were performed, including computer aided detection (CAD) and BILATERAL digital breast tomosynthesis (DBT). ??Magnification views of the subareolar left breast were also performed. ??Targeted ultrasound of the left breast was performed by a trained special forces senior sergeant and by Dr. Elie Bradley. BREAST PARENCHYMAL COMPOSITION: The breasts are heterogenously dense, which may obscure small masses. MAMMOGRAM FINDINGS: At 2:30 in the left breast middle depth, 6 cm from the nipple, there is a mass which has increased in size from 7 x 5 mm to 11 x 9 mm. Postoperative findings of left breast conservation therapy. ??No other significant finding in the left breast. No suspicious finding in the right breast. ULTRASOUND FINDINGS: Targeted ultrasound was performed in the area of the enlarging mammographic mass of the left breast as well as in the retroareolar left breast. ??At 3:00 in the left breast 4 cm from the nipple, there is an 11 x 7 x 10 mm simple cyst, corresponding to the mammographic mass of concern. Ultrasound evaluation of the retroareolar left breast reveals no abnormality. ??No suspicious finding in the left breast. Procedure Note Elie Bradley MD - 08/11/2018 EXAMINATION: BILATERAL DIGITAL DIAGNOSTIC MAMMOGRAM INCLUDING CAD AND BILATERAL DIGITAL BREAST TOMOSYNTHESIS; LEFT BREAST ULTRASOUND HISTORY: 63-year-old woman with history of left breast invasive ductal carcinoma status post left breast conservation therapy in January 2018. She reports one episode of clear spontaneous left nipple discharge approximately 4 weeks ago. COMPARISON: Multiple prior examinations, dating back to 12/02/2006. TECHNIQUE: Full field digital mammographic views of BOTH breasts were performed, including computer aided detection (CAD) and BILATERAL digital breast tomosynthesis (DBT). Magnification views of the subareolar left breast were also performed. Targeted ultrasound of the left breast was performed by a trained special forces senior sergeant and by Dr. Elie Bradley. BREAST PARENCHYMAL COMPOSITION: The breasts are heterogenously dense, which may obscure small masses. MAMMOGRAM FINDINGS: At 2:30 in the left breast middle depth, 6 cm from the nipple, there is a mass which has increased in size from 7 x 5 mm to 11 x 9 mm. Postoperative findings of left breast conservation therapy. No other significant finding in the left breast. No suspicious finding in the right breast. ULTRASOUND FINDINGS: Targeted ultrasound was performed in the area of the enlarging mammographic mass of the left breast as well as in the retroareolar left breast. At 3:00 in the left breast 4 cm from the nipple, there is an 11 x 7 x 10 mm simple cyst, corresponding to the mammographic mass of concern. Ultrasound evaluation of the retroareolar left breast reveals no abnormality. No suspicious finding in the left breast. IMPRESSION: No suspicious finding in either breast. OVERALL FINAL ASSESSMENT: BI-RADS Category 2: Benign. Annual diagnostic mammography is recommended. Electronically signed by: Elie Bradley M.D. Kianna Bunch MD PhD IMG MAMMO PROCEDURES Final Result * Diagnostic Mammogram Bilateral W Mathew (08/11/2018 12:58 PM CDT) Anatomical Region Laterality Modality Breast Bilateral Mammography 08/11/2018 2:07 PM CDT Impressions 08/11/2018 2:07 PM CDT No suspicious finding in either breast. OVERALL FINAL ASSESSMENT: BI-RADS Category 2: Benign. Annual diagnostic mammography is recommended. Electronically signed by: Elie Bradley M.D. Narrative 08/11/2018 2:07 PM CDT EXAMINATION: BILATERAL DIGITAL DIAGNOSTIC MAMMOGRAM INCLUDING CAD AND BILATERAL DIGITAL BREAST TOMOSYNTHESIS; LEFT BREAST ULTRASOUND HISTORY: 63-year-old woman with history of left breast invasive ductal carcinoma status post left breast conservation therapy in January 2018. ??She reports one episode of clear spontaneous left nipple discharge approximately 4 weeks ago. COMPARISON: Multiple prior examinations, dating back to 12/02/2006. TECHNIQUE: ??Full field digital mammographic views of BOTH breasts were performed, including computer aided detection (CAD) and BILATERAL digital breast tomosynthesis (DBT). ??Magnification views of the subareolar left breast were also performed. ??Targeted ultrasound of the left breast was performed by a trained special forces senior sergeant and by Dr. Elie Bradley. BREAST PARENCHYMAL COMPOSITION: The breasts are heterogenously dense, which may obscure small masses. MAMMOGRAM FINDINGS: At 2:30 in the left breast middle depth, 6 cm from the nipple, there is a mass which has increased in size from 7 x 5 mm to 11 x 9 mm. Postoperative findings of left breast conservation therapy. ??No other significant finding in the left breast. No suspicious finding in the right breast. ULTRASOUND FINDINGS: Targeted ultrasound was performed in the area of the enlarging mammographic mass of the left breast as well as in the retroareolar left breast. ??At 3:00 in the left breast 4 cm from the nipple, there is an 11 x 7 x 10 mm simple cyst, corresponding to the mammographic mass of concern. Ultrasound evaluation of the retroareolar left breast reveals no abnormality. ??No suspicious finding in the left breast. Procedure Note Elie Bradley MD - 08/11/2018 EXAMINATION: BILATERAL DIGITAL DIAGNOSTIC MAMMOGRAM INCLUDING CAD AND BILATERAL DIGITAL BREAST TOMOSYNTHESIS; LEFT BREAST ULTRASOUND HISTORY: 63-year-old woman with history of left breast invasive ductal carcinoma status post left breast conservation therapy in January 2018. She reports one episode of clear spontaneous left nipple discharge approximately 4 weeks ago. COMPARISON: Multiple prior examinations, dating back to 12/02/2006. TECHNIQUE: Full field digital mammographic views of BOTH breasts were performed, including computer aided detection (CAD) and BILATERAL digital breast tomosynthesis (DBT). Magnification views of the subareolar left breast were also performed. Targeted ultrasound of the left breast was performed by a trained special forces senior sergeant and by Dr. Elie Bradley. BREAST PARENCHYMAL COMPOSITION: The breasts are heterogenously dense, which may obscure small masses. MAMMOGRAM FINDINGS: At 2:30 in the left breast middle depth, 6 cm from the nipple, there is a mass which has increased in size from 7 x 5 mm to 11 x 9 mm. Postoperative findings of left breast conservation therapy. No other significant finding in the left breast. No suspicious finding in the right breast. ULTRASOUND FINDINGS: Targeted ultrasound was performed in the area of the enlarging mammographic mass of the left breast as well as in the retroareolar left breast. At 3:00 in the left breast 4 cm from the nipple, there is an 11 x 7 x 10 mm simple cyst, corresponding to the mammographic mass of concern. Ultrasound evaluation of the retroareolar left breast reveals no abnormality. No suspicious finding in the left breast. IMPRESSION: No suspicious finding in either breast. OVERALL FINAL ASSESSMENT: BI-RADS Category 2: Benign. Annual diagnostic mammography is recommended. Electronically signed by: Elie Bradley M.D. Kianna Bunch MD PhD IMG MAMMO PROCEDURES Final Result documented in this encounter Visit Diagnoses Diagnosis History of breast cancer Personal history of malignant neoplasm of breast documented in this encounter Care Teams Big Data Software Engineer Relationship Specialty Start Date End Date Ravi Smith MD PCP - General 11/04/17 09/27/21 Kianna Bunch MD PhD [address] [place] [address] Surgeon Surgical Oncology 11/22/17 Santiago Gilbert MD [address] [place] [address] Rn Shift Mgr Gastroenterology 11/22/17 documented as of this encounter
--- OUTSIDE RECORDS SUMMARY | 2024-04-24 13:48 | XMS_ITS | Encounter Summary ---
Author Organization [facility] Address [address] [place] [address] Phone Care Team Providers Care Laborer Electroplating Name Role Phone Ravi Smith MD Primary Care Provider [phone] Aft, Kianna Machado MD PhD Unavailable [phone] Santiago Gilbert MD Unavailable [phone] Encounter Details Date Type Department Care Team (Late st Contact Info) Description 08/08/2018 Orders Only [facility] [address] [place] [address] Abbi Ventura MD [address] [facility] [address] [place] [address] Social History Tobacco Use Types Packs/Day Years Used Date Smoking Tobacco: Former Cigarettes 2015 Smokeless Tobacco: Never Alcohol Use Standard Drinks/Week Comments Yes 0 (1 standard drink = 0.6 oz pur e alcohol) socially Comments No Sex and Gender Information Value Date Recorded Sex Assigned at Not on file 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
--- OUTSIDE RECORDS SUMMARY | 2024-04-24 13:48 | XMS_ITS | Encounter Summary ---
Author Organization [facility] Address [address] [place] [address] Phone Care Team Providers Care Steel Die Engraver Name Role Phone Ravi Smith MD Primary Care Provider [phone] Kianna Bunch MD PhD Unavailable [phone] Santiago Gilbert MD Unavailable [phone] Encounter Details Date Type Department Care Team (Late st Contact Info) Description 08/11/2018 Orders Only [facility] [address] [place] [address] Fatemeh Zarate, LYDIA Social History Tobacco Use Types Packs/Day Years Used Date Smoking Tobacco: Former Cigarettes 2015 Smokeless Tobacco: Never Alcohol Use Standard Drinks/Week Comments Yes 0 (1 standard drink = 0.6 oz pur e alcohol) socially Comments No Sex and Gender Information Value Date Recorded Sex Assigned at Not on file 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
--- OUTSIDE RECORDS SUMMARY | 2024-04-24 13:48 | XMS_ITS | Encounter Summary ---
Author Organization [facility] Address [address] [place] [address] Phone Care Team Providers Care Teacher'S Aide Name Role Phone Ravi Smith MD Primary Care Provider [phone] Aft, Kianna Machado MD PhD Unavailable [phone] Santiago Gilbert MD Unavailable [phone] Reason for Visit * Reason Onset Date Comments APPOINTMENT 07/24/2018 Encounter Details Date Type Department Care Team (Late st Contact Info) Description 07/24/2018 Telephone [facility] [address] [place] [phone] Leroy Parish Rashad APPOINTMENT Social History Tobacco Use Types Packs/Day Years Used Date Smoking Tobacco: Former Cigarettes 2015 Smokeless Tobacco: Never Alcohol Use Standard Drinks/Week Comments Yes 0 (1 standard drink = 0.6 oz pur e alcohol) socially Comments No Sex and Gender Information Value Date Recorded Sex Assigned at Not on file 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 Gender Identity Not on file Sexual Orientation Not on file documented as of this encounter Miscellaneous Notes * Telephone Encounter - Leory Parish MA - 07/24/2018 2:31 PM CDT PATIENT AWARE OF APPT documented in this encounter Plan of Treatment Not on file documented as of this encounter Visit Diagnoses Not on filedocumented in this encounter Care Teams Teacher'S Aide Relationship Specialty Start Date End Date Ravi Smith MD PCP - General 11/04/17 09/27/21 Aft, Kianna Machado MD PhD [address] [facility] [place], [place] [id number] Surgeon Surgical Oncology 11/22/17 Santiago Gilbert MD [address] [facility] [place], [place] [id number] Metal Washing Machine Operator Gastroenterology 11/22/17 documented as of this encounter
--- OUTSIDE RECORDS SUMMARY | 2024-04-24 13:48 | XMS_ITS | Encounter Summary ---
Author Organization [facility] Address [address] [place] [address] Phone Care Team Providers Care Atomic Physics Teacher Name Role Phone Ravi Smith MD Primary Care Provider [phone] Aft, Kianna Machado MD PhD Unavailable [phone] Santiago Gilbert MD Unavailable [phone] Reason for Visit * Episode Based Medications (Routine) - Closed Specialty Diagnoses / Procedures Referred By Vijaya t Referred To Contact Oncology Diagnoses Malignant neoplasm of upper-inner quadrant of left breast in female, estrogen receptor negative (HCC) Encounter for person encountering health services Procedures ME DOXORUBIC HCL 10 MG VL CHEMO ME CYCLOPHOSPHAMIDE 100 MG INJ ME INJECTION, PEGFILGRASTIM 6MG ME PALONOSETRON HCL ME FOSAPREPITANT INJECTION Dose-Dense AC: DOXOrubicin (ADRIAMYCIN) / Cyclophosphamide) with Abbi Chavez MD [address] [place] [address] Phone: tel: fax: [facility] Oncology [address] [place] [address] Phone: tel: fax: Referral ID Status Reason Start Date Expiration Date Visits Re quested Visits Authorized [id number] Closed 06/25/2018 09/02/2018 1 36 Encounter Details Date Type Department Care Team (Latest Contact Info) Description 08/12/2018 8:00 AM CDT Clinical Support [facility] Oncology [address] [place] [address] Jamaica Montoya, PRE K TEACHER [address] [place] [address] Trena Obando MD [address] [place] [address] Encounter for person encountering health services; Malignant [...] on file 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 Gender Identity Not on file Sexual Orientation Not on file documented as of this encounter Discharge Disposition Disposition Code Departure Means Destination Discharge to home or self care documented in this encounter Plan of Treatment Not on file documented as of this encounter Procedures Procedure Name Priority Date/Time Associated Diagnosis Comments MAGNESIUM STAT 10/15/2018 10:00 AM CDT CEA STAT 08/27/2018 11:03 AM CDT DIFFERENTIAL AUTO Routine 08/12/2018 8:2 5 AM CDT Encounter for person encountering health services Malignant neoplasm of upper-inner quadrant of left breast in female, 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) CBC WITH AUTO DIFFERENTIAL Routine 08/12/2018 8:25 AM CDT Encounter for person encountering health services Malignant neoplasm of upper-inner quadrant of left breast in female, 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) COMPREHENSIVE METABOLIC PANEL STAT 08/12/2018 8:25 AM CDT Encounter for person encountering health services Malignant neoplasm of upper-inner quadrant of left breast in female, 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) documented in this encounter Results * Magnesium (10/15/2018 10:00 AM CDT) Pathologist [facility] Magnesium 1.5 1.4 - 2.5 mg/dL [facility] Blood specimen (specimen) 10/15/2018 10:00 AM CDT 10/15/2018 10:08 AM CDT Narrative [facility] - 10/15/2018 11:39 AM CDT Jamaica Montoya PRE K TEACHER LAB BLOOD ORDERABLES Final Result Performing Organization Address City/[facility] Co de Phone Number [facility] [place] [employer] [place] [address] * CEA (08/27/2018 11:03 AM CDT) Pathologist [facility] CEA 2.7 <=5.0 ng/mL [facility] Comment: Interpretative Data: Reference Range: Non-Smokers: 0.0 - 5.0 ng/mL Smokers: 0.0 ? 6.5 ng/mL This test was developed and its performance characteristics determined by the [facility] in a manner consistent with CLIA requirements. This test has not been cleared or approved by the U.S. Food and Drug Administration. Current interpretive data was last revised 2018. Blood specimen (specimen) 08/27/2018 11:03 AM CDT 08/27/2018 1:46 PM CDT Narrative [facility] - 08/27/2018 2:28 PM CDT Jamaica Montoya PRE K TEACHER LAB BLOOD ORDERABLES Final Result Performing Organization Address [facility] Co de Phone Number [facility] Department [place] [address] * (ABNORMAL) Differential, auto (08/12/2018 8:25 AM CDT) Pathologist [facility] Neutrophil abs 5.0 1.7 - 6.5 K/cumm [facility] Imm gran abs 0.1 0.0 - 0.1 K/cumm [facility] Lymphocyte abs 0.7(L) 0.8 - 3.3 K/cumm [facility] Monocyte abs 0.6 0.2 - 0.8 K/cumm [facility] Eosinophil abs 0.0 0.0 - 0.5 K/cumm [facility] Basophil abs 0.1 0.0 - 0.1 K/cumm [facility] Neutrophil pct 77.8 % [facility] Comment: Interpretive Data Percent cell count reference ranges are not reported, since discordance with absolute values may lead to misinterpretation of CBC data. Current Interpretive Data was last revised on 2017. Imm gran pct 0.9 % [facility] Comment: Interpretive Data Percent cell count reference ranges are not reported, since discordance with absolute values may lead to misinterpretation of CBC data. Current Interpretive Data was last revised on 2017. Lymphocyte pct 10.9 % [facility] Comment: Interpretive Data Percent cell count reference ranges are not reported, since discordance with absolute values may lead to misinterpretation of CBC data. Current Interpretive Data was last revised on 2017. Monocyte pct 9.0 % [facility] Comment: Interpretive Data Percent cell count reference ranges are not reported, since discordance with absolute values may lead to misinterpretation of CBC data. Current Interpretive Data was last revised on 2017. Eosinophil pct 0.5 % [facility] Comment: Interpretive Data Percent cell count reference ranges are not reported, since discordance with absolute values may lead to misinterpretation of CBC data. Current Interpretive Data was last revised on 2017. Basophil pct 0.9 % [facility] Comment: Interpretive Data Percent cell count reference ranges are not reported, since discordance with absolute values may lead to misinterpretation of CBC data. Current Interpretive Data was last revised on 2017. Blood specimen (specimen) 08/12/2018 8:25 AM CDT 08/12/2018 8:28 AM CDT Narrative [facility] - 08/12/2018 8:32 AM CDT Jamaica Montoya PRE K TEACHER LAB BLOOD ORDERABLES Final Result [facility] Department [place] [address] * (ABNORMAL) CBC with auto differential (08/12/2018 8:25 AM CDT) Pathologist [facility] WBC 6.4 3.8 - 9.9 K/cumm [facility] Hgb 8.2(L) 11.9 - 15.5 g/dL [facility] Hct 25.5(L) 35.6 - 45.5 % [facility] Plt 160 150 - 400 K/cumm [facility] MPV 9.0(L) 9.1 - 12.3 fL [facility] RBC 2.57(L) 3.90 - 5.20 M/cumm [facility] MCV 99.2(H) 81.3 - 96.4 fL [facility] MCH 31.9 27.1 - 33.3 pg [facility] MCHC 32.2(L) 32.3 - 35.7 g/dL [facility] RDW CV 16.0(H) 11.1 - 14.9 % [facility] RDW SD 56.4(H) 35.7 - 48.1 fL [facility] NRBC abs 0.00 0.00 - 0.01 K/cumm [facility] Blood specimen (specimen) 08/12/2018 8:25 AM CDT 08/12/2018 8:28 AM CDT Narrative [facility] - 08/12/2018 8:32 AM CDT Jamaica Montoya PRE K TEACHER LAB BLOOD ORDERABLES Final Result [facility] Department [place] [address] * (ABNORMAL) Comprehensive metabolic panel (08/12/2018 8:25 AM CDT) Pathologist [facility] Sodium 140 135 - 145 mmol/L [facility] Potassium, pl 3.8 3.3 - 4.9 mmol/L [facility] Chloride 105 97 - 110 mmol/L [facility] CO2 24 22 - 32 mmol/L [facility] Anion gap 11 2 - 15 mmol/L [facility] BUN 19 8 - 25 mg/dL [facility] Creatinine 1.27(H) 0.60 - 1.10 mg/dL [facility] Glucose 174 70 - 199 mg/dL [facility] 2017. Calcium 9.0 8.5 - 10.3 mg/dL [facility] Bilirubin, total 0.5 0.1 - 1.2 mg/dL [facility] Protein, pl 6.7 6.5 - 8.5 g/dL [facility] Albumin 4.0 3.5 - 5.0 g/dL [facility] Alk phos 84 40 - 130 Units/L [facility] ALT 16 7 - 45 Units/L [facility] AST 24 10 - 45 Units/L [facility] Blood specimen (specimen) 08/12/2018 8:25 AM CDT 08/12/2018 8:28 AM CDT Narrative [facility] - 08/12/2018 8:51 AM CDT Jamaica Montoya PRE K TEACHER LAB BLOOD ORDERABLES Final Result [facility] Department [place] [address] documented in this encounter Visit Diagnoses Diagnosis Encounter for person encountering health services Malignant neoplasm of upper-inner quadrant of left breast in female, estrogen receptor negative (HCC) documented in this encounter Orders Appointment Requests Count Last Ordered Date Fi rst Ordered Date ONCBCN LAB APPOINTMENT 1 08/12/2018 documented in this encounter Care Teams Atomic Physics Teacher Relationship Specialty Start Date End Date Ravi Smith MD PCP - General 11/04/17 09/27/21 Aft, Kianna Machado MD PhD [address] [place] [address] Surgeon Surgical Oncology 11/22/17 Santiago Gilbert MD [address] [place] [address] Assistant Case Manager Gastroenterology 11/22/17 documented as of this encounter
--- OUTSIDE RECORDS SUMMARY | 2024-04-24 13:48 | XMS_ITS | Encounter Summary ---
Author Organization [facility] Address [address] [place] [address] Phone Care Team Providers Care Centerless Grinding Machine Adjuster Name Role Phone Ravi Smith MD Primary Care Provider [phone] Aft, Kianna Machado MD PhD Unavailable [phone] Santiago Gilbert MD Unavailable [phone] Encounter Details Date Type Department Care Team (Late st Contact Info) Description 08/27/2018 Orders Only [facility] Oncology [address] [place] [address] Abbi Ventura MD [address] [facility] [address] [place] [address] 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) Social History Tobacco Use Types Packs/Day Years Used Date Smoking Tobacco: Former Cigarettes 2015 Smokeless Tobacco: Never Alcohol Use Standard Drinks/Week Comments Yes 0 (1 standard drink = 0.6 oz pur e alcohol) socially Comments No Sex and Gender Information Value Date Recorded Sex Assigned at Not on file 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 6.5 ng/mL This test was developed and its performance characteristics determined by the [facility] in a manner consistent with CLIA requirements. This test has not been cleared or approved by the U.S. Food and Drug Administration. Current interpretive data was last revised 2018. Blood specimen (specimen) 10/15/2018 10:00 AM CDT 10/15/2018 11:21 AM CDT Narrative [facility] - 10/15/2018 11:57 AM CDT us Abbi eVntura MD LAB BLOOD ORDERABLES Final Resul t [facility] Department [place] [address] * Comprehensive metabolic panel (10/15/2018 10:00 AM CDT) Sodium 141 135 - 145 mmol/L [facility] Potassium, pl 4.1 3.3 - 4.9 mmol/L [facility] Chloride 110 97 - 110 mmol/L [facility] CO2 24 22 - 32 mmol/L [facility] Anion gap 8 2 - 15 mmol/L [facility] BUN 19 8 - 25 mg/dL [facility] Creatinine 0.95 0.60 - 1.10 mg/dL [facility] Glucose 165 70 - 199 mg/dL [facility] Comment: Interpretive Data Fasting glucose >/= [...] 2017. Calcium 9.3 8.5 - 10.3 mg/dL [facility] Bilirubin, total 0.3 0.1 - 1.2 mg/dL [facility] Protein, pl 6.5 6.5 - 8.5 g/dL [facility] Albumin 3.8 3.5 - 5.0 g/dL [facility] Alk phos 62 40 - 130 Units/L [facility] ALT 12 7 - 45 Units/L [facility] AST 18 10 - 45 Units/L [facility] Blood specimen (specimen) 10/15/2018 10:00 AM CDT 10/15/2018 10:08 AM CDT Narrative [facility] - 10/15/2018 10:26 AM CDT us Abbi Ventura MD LAB BLOOD ORDERABLES Final Resul t [facility] Department [place] [address] * (ABNORMAL) CBC with auto differential (10/15/2018 10:00 AM CDT) WBC 5.8 3.8 - 9.9 K/cumm [facility] Hgb 9.0(L) 11.9 - 15.5 g/dL [facility] Hct 28.3(L) 35.6 - 45.5 % [facility] Plt 154 150 - 400 K/cumm [facility] MPV 9.3 9.1 - 12.3 fL [facility] RBC 2.79(L) 3.90 - 5.20 M/cumm [facility] MCV 101.4(H) 81.3 - 96.4 fL [facility] MCH 32.3 27.1 - 33.3 pg [facility] MCHC 31.8(L) 32.3 - 35.7 g/dL [facility] RDW CV 13.2 11.1 - 14.9 % [facility] RDW SD 49.4(H) 35.7 - 48.1 fL [facility] NRBC abs 0.00 0.00 - 0.01 K/cumm [facility] Blood specimen (specimen) 10/15/2018 10:00 AM CDT 10/15/2018 10:08 AM CDT Narrative [facility] - 10/15/2018 10:10 AM CDT us Abbi Ventura MD LAB BLOOD ORDERABLES Final Resul t [facility] [place] [address] documented in this encounter Visit Diagnoses Diagnosis 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)- Primary Malignant neoplasm of descending colon 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) Malignant neoplasm of descending colon documented in this encounter Orders Appointment Requests Count Last Ordered Date Fi rst Ordered Date ONCBCN CLINIC APPOINTMENT REQUEST 1 019 ONCBCN LAB APPOINTMENT 1 10/15/2018 documented in this encounter Care Teams Centerless Grinding Machine Adjuster Relationship Specialty Start Date End Date Ravi Smith MD PCP - General 11/04/17 09/27/21 Aft, Kianna Machado MD PhD [address] [place] [address] Surgeon Surgical Oncology 11/22/17 Santiago Gilbert MD [address] [place] [address] [employer]inder[employer] Teacher Gastroenterology 11/22/17 documented as of this encounter
--- OUTSIDE RECORDS SUMMARY | 2024-04-24 13:48 | XMS_ITS | Encounter Summary ---
Author Organization [facility] Address [address] [place] [address] Phone Care Team Providers Care Final Armature Tester Name Role Phone Ravi Smith MD Primary Care Provider [phone] Aft, Kianna Machado MD PhD Unavailable [phone] Santiago Gilbert MD Unavailable Reason for Visit * Neurology (Routine) - Closed Specialty Diagnoses / Procedures Referred By Vijaya simpson Referred To Contact Diagnoses Drug-induced polyneuropathy (HCC) Procedures EMG/NCV -Procedure performed at: [facility] EMG Lab; Clinical Summary: 63 yo woman with breast and colon cancer, s/p oxaliplatin; on XARELTO p/w difficulties walking; Reason for referral or diagnostic question: please evaluate for peripheral neuropath... Trena Obando MD Phone: tel: fax: [facility] (All Locations) Referral ID Status Reason Start Date Expiration Date Visits Re quested Visits Authorized [id number] Closed 08/14/2018 02/23/2020 1 1 Encounter Details Date Type Department Care Team (Latest Contact Info) Description 08/14/2018 1:30 PM CDT Procedure visit [facility] Neurological Testing [address] [facility] [address] [place] [address] [place] [address] Drug-induced polyneuropathy (CMS/HCC) Social History Tobacco Use Types Packs/Day Years Used Date Smoking Tobacco: Former Cigarettes 2015 Smokeless Tobacco: Never Alcohol Use Standard Drinks/Week Comments Yes 0 (1 standard drink = 0.6 oz pur e alcohol) socially Comments No Sex and Gender Information Value Date Recorded Sex Assigned at Not on file 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 Procedures [facility] DEPART[facility] OF NEUROLOGY NEUROMUSCULAR ELECTRODIAGNOSTIC LABORATORY CLINICAL ELECTROMYOGRAPHY REPORT Patient: Aleah Gerber Birthdate: 1955 Study No: [id number] MRN No: [id number] Referring M.D.: Trena Obando MD Date of Study:08/14/2018 Examined by: Josafat Burns MD REASON FOR REFERRAL: This is a woman with abnormal gait. SUMMARY OF FINDINGS: 1. The right peroneal and tibial motor nerve conduction studies were normal. 2. The right radial and bilateral sural antidromic sensory nerve conduction studies are normal. 3. Bilateral tibial H-Wave minimal onset latencies were normal. 4. Needle EMG of the right medial gastrocnemius and 4th dorsal interossei pedis was normal except reduced activation. EMG of the right tibialis anterior was normal. Temperature was maintained above 32??C in the hand and above 30??C in the foot for all NCSs. CONCLUSION/INTERPRETATION: This study does not show electrodiagnostic evidence for a large fiber peripheral neuropathy. The reduced activation seen on EMG is commonly encountered in these muscles but could be from any central nervous system etiology. Josafat Burns MD Electromyographer Larisa. By signing this report, the attending [...] Fax no.: . Our correspondence address : [address], [address] [place] [address] [facility] [employer] Neurology, EMG Lab [place], [place] Data Report Full Name: Aleah Gerber Gender: Female Date of : 1955 Visit Date: 08/14/2018 13:32 Age: 63 Years 0 Months Old Examining Physician: Grant Referring Physician: Gisella Carrera Height: 5 feet 9 inch MNC Nerve / Sites Latency Amplitude Segments Distance Lat Diff Velocity ms mV mm ms m/s R Peroneal - EDB Ankle 3.59 4.9 Ankle - EDB 100 Fib head 10.73 5.0 Fib head - Ankle 330 7.14 46.2 Pop fossa 12.76 5.1 Pop fossa - Fib head 100 2.03 49.2 Pop fossa - Ankle 9.17 R Tibial - AH Ankle 4.06 9.0 Ankle - AH 100 Pop fossa 12.60 6.8 Pop fossa - Ankle 360 8.54 42.1 SNC Nerve / Sites Onset Lat Peak Lat Amplitude OnsetDiff Distance Cond Per ms ms ??V ms mm m/s R Radial - Anatomical snuff box (Forearm) Forearm 1.7 2.4 24 1.7 100 58 R Sural - Ankle (Calf) Calf 2.8 3.9 10 2.8 140 51 L Sural - Ankle (Calf) Calf 3.0 3.9 11 3.0 140 46 H Reflex Nerve H Lat Lat Hmax ms ms L Tibial - Soleus 32.9 36.0 R Tibial - Soleus 32.5 36.5 EMG Summary Insertional Spontaneous MUAP Comments Muscle Nerve Roots Activity Fib PSW Fasc Other Dur. Amp Poly Recruit Activate Comments R. Tibialis anterior Deep peroneal (Fibular) L4-L5 Normal None None None . Normal Normal None Normal Normal . R. Gastrocnemius (Medial head) Tibial S1-S2 Normal None None None . Normal Normal None Red Act Sub Max . R. Dorsal interossei (pedis) III & IV Lateral plantar S1-S2 Normal None None None . Normal Normal None Red Act Sub Max . R. Vastus medialis Femoral L2-L4 Normal None None None . Normal Normal None Normal Normal . 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
--- OUTSIDE RECORDS SUMMARY | 2024-04-24 13:48 | XMS_ITS | Encounter Summary ---
Author Organization [facility] Address [address] [place] [address] Phone Care Team Providers Care Switchman Name Role Phone Ravi Smith MD Primary Care Provider [phone] Aft, Kianna Machado MD PhD Unavailable [phone] Santiago Gilbert MD Unavailable [phone] Reason for Visit * Oncology (Routine) - Closed Specialty Diagnoses / Procedures Referred By Contac t Referred To Contact Medical Oncology / Oncology Diagnoses 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 Ventura to discuss TC Procedures ONCBCN CLINIC APPOINTMENT REQUEST RETURN [place] Montoya, GENERAL LABOR FORKLIFT OPERATOR 4 [facility] [address] [address] Phone: tel: fax: Abbi Ventura MD [address] [facility] [address] [place] [address] Phone: tel: fax: Referral ID Status Reason Start Date Expiration Date V isits Requested Visits Authorized [id number] Closed Specialty Services Required 06/04/2018 05/05/2019 99 [phone] Encounter Details Date Type Department Care Team (Late st Contact Info) Description 08/27/2018 11:15 AM CDT Office Visit [facility] Oncology [address] [place] [address] Abbi Ventura MD [address] [facility] [address] [address] [place] [address] 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) Social History Tobacco Use Types Packs/Day Years Used Date Smoking Tobacco: Former Cigarettes 1 2015 Smokeless Tobacco: Never Alcohol Use Standard Drinks/Week Comments Yes 0 (1 standard drink = 0.6 oz pur e alcohol) socially Comments No Sex and Gender Information Value Date Recorded Sex Assigned at Not on file 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 Gender Identity Not on file Sexual Orientation Not on file documented as of this encounter Last Filed Vital Signs Vital Sign Reading Time Taken Comments Blood Pressure 133/74 08/27/2018 11:11 AM CDT Pulse 122 08/27/2018 11:11 AM CDT Temperature 36.7 ??C (98.1 ??F) 08/27/2018 1 1:11 AM CDT Respiratory Rate 18 08/27/2018 11:1 1 AM CDT Oxygen Saturation 99% 08/27/2018 11: 11 AM CDT Inhaled Oxygen Concentration - - Weight 100.1 kg (220 lb 11.2 oz) 2018 11:11 AM CDT Height 172.7 cm (5' 8 ) 08/27/2018 11:1 1 AM CDT Body Mass Index 33.56 08/27/2018 11:11 AM CDT documented in this encounter Progress Notes * Dinorah Brizuela NP - 08/27/2018 11:15 AM CDT The Patient Identifying Data: Aleah Gerber is a 63 y.o. female seen in followup today DIAGNOSIS: 1. 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 [employer] My risk showed no mutation in [facility] [...] on 08/12/2018 14. LVEF 65% Interval History Patient completed cycle 4 of A/C at a reduced dose on 08/12. Her fatigue and SOB remain significant, spending the majority of each day in her recliner. She had baseline SOB, but feels it has worsened with each dose of therapy. She has a PE and remains on Xarelto per her PCP. She completes all of her ADL's, but remains minimally active. Her appetite is poor and she has lost another 5 pounds. Her neuropathy is unchanged but most noticeable in her left hand and B feet. 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 She denies any falls. She has her cane with her but ambulates easily onto the exam table. She has nausea w/o vomiting, which is unchanged and improved with her antinausea medication at home. She was seen at her local hospital on 08/23 for weakness and was treated with IVF's only. She continues tohave some degree of mucositis (mouth tenderness w/o ulcers) and using salt water rinses throughout the day.She had diarrhea for about 7 days after her last chemotherapy treatment. She has mild left breast tenderness with occasional nipple discharge. Review of Systems Review of systems positive for symptoms as per interval history. All other review of systems negative. Objective Vitals: Vitals BP 133/74 (BP Location: Right arm) Pulse 122 Temp 36.7 ??C (98.1 ??F) (Oral) Resp 18 Ht 172.7 cm (5' 8 ) Wt 100.1 kg (220 lb 11.2 oz) SpO2 99% BMI 33.56 kg/m?? PERFORMANCE STATUS: ECOG 3 SKIN: Normal [...] aredisplayed. Labs - Hematology Latest Ref Range 07/23/18 08/06/18 08/12/18 08/27/18 WBC 3.8 - 9.9 K/cumm 10.0 (A) 13.8 (A) 6.4 10.3 (A) Total Hb, POC 11.9 - 15.5 g/dL 8.6 (A) 8.8 (A) 8.2 (A) 8.1 (A) Hct 35.6 - 45.5 % 25.3 (A) 26.2 (A) 25.5 (A) 24.4 (A) Plt 150 - 400 K/cumm 115 (A) 97 (A) 160 130 (A) Neutrophil abs 1.7 - 6.5 K/cumm 6.7 (A) 10.3 (A) 5.0 8.3 (A) (A) Abnormal value Lab Results Component Value Date SODIUM 139 08/27/2018 POTASSIUM 3.4 08/27/2018 CO2 22 08/27/2018 BUNSER 16 08/27/2018 GLUCOSE 142 08/27/2018 CREATININE 1.24 (H) 08/27/2018 CALCIUM 9.2 08/27/2018 CHLORIDE 104 08/27/2018 ALBUMIN 4.2 08/27/2018 AST 21 08/27/2018 ALT 15 08/27/2018 ALKPHOS 84 08/27/2018 BILITOT 0.5 08/27/2018 PROT 6.8 08/27/2018 ANIONGAP 13 08/27/2018 Tumor Marker History Some values may be hidden. Unless noted otherwise, only the newest values recorded on each date aredisplayed. Tumor Markers Latest Ref Range 04/09/18 05/07/18 05/21/18 08/14/18 CEA <=5.0 ng/mL 4.2 5.0 4.0 Immunoglobulin G 700.0 - 1,600.0 mg/dL 425.0 (A) Immunoglobulin A 70.0 - 400.0 mg/dL 118.0 Immunoglobulin M 40.0 - 230.0 mg/dL 38.0 (A) Immunofixation No monoclonal protein detected. (A) Abnormal value Comments are available for some flowsheets but are not being displayed. Recent labs, radiology and pathology reviewed in [facility]: T4bN0 disease, Stage IIC colon [...] BSO will be considered in the future. C4 of AC was delayed d/t fatigue, but eventually given on 08/12. She remains very fatigued and minimally active. Depression/anxiety: follow up by Dr. Simms as needed (not currently seeing). 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 Hypokalemia: on oral replacement. Continue to monitor Tachycardia and NG persist. PLAN: -maintain oral hydration and activity. -Plan for re-excision with Dr. Bunch on October 02. -RTC on 10/15, after breast surgery and likely observation at that point. -Colonoscopy at the end of the summer. -F/U PCP regarding tachycardia and NG if does not improve as she moves further out from chemo. -F/U with Neurology regarding gait issues. -Call with any issues in between visit. Dinorah Brizuela NP 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)- Primary Malignant neoplasm of descending colon documented in this encounter Care Teams Switchman Relationship Specialty Start Date End Date Ravi Smith MD PCP - General 11/04/17 09/27/21 Julio C, Kianna Machado MD PhD [address] [place] [address] Surgeon Surgical Oncology 11/22/17 Santiago Gilbert MD [address] [place] [address] Project Management Professor Gastroenterology 11/22/17 documented as of this encounter
--- OUTSIDE RECORDS SUMMARY | 2024-04-24 13:48 | XMS_ITS | Encounter Summary ---
Author Organization [facility] Address [address] [place] [address] Phone Care Team Providers Care Clothing Presser Name Role Phone Ravi Smith MD Primary Care Provider [phone] Aft, Kianna Machado MD PhD Unavailable [phone] Santiago Gilbert MD Unavailable [phone] Reason for Visit * Reason Comments Follow-up Left nipple D/C Encounter Details Date Type Department Care Team (Late st Contact Info) Description 08/11/2018 11:00 AM CDT Office Visit [facility] Surgery [address] 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 HISTORY OF PRESENT ILLNESS: Ms. Gerber is a 63 y.o. woman referred by Abbi Ventura who requested that I evaluate her for her left nipple discharge. The patient states that she began noticing sponge spontaneous discharge from the left nipple 2-3 weeks ago. It is serous in color. She denies any discharge from the right nipple. She denies any masses in either breast. She denies any change in the appearance of her breasts or the skin of her breasts. She has no other systemic complaints and otherwise feels well today. The patient had previously undergone left breast conserving surgery for a triplenegative breast cancer At that time the patient had a positive margin. It was decided she should proceed with chemotherapy as well as treatment for her colon cancer. She has been undergoing chemotherapy for her breast cancer as well as for her colon cancer. The patient has tested positive for deleterious BRCA mutation. The patient has completed her chemotherapy Past Medical History: Diagnosis Date ??? Anemia ??? Anxiety ??? Asthma ??? At risk for sleep apnea Per assessment, STOP BANG= 5 ??? Breast cancer (CMS/HCC) 2018 Left Dxd 11/2017 ??? 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 Colon polyps ??? COPD (chronic obstructive pulmonary disease) (CMS/HCC) ??? Depression ??? Former smoker Quit 2015 ??? History of ileus 12/2017 ??? Obesity ??? PONV (postoperative nausea and vomiting) ??? TIA (transient ischemic attack) 2007 Past Surgical History: Procedure Laterality Date ??? BLADDER SUSPENSION 2010 ??? BREAST BIOPSY Left 11/12/2017 ??? BREAST BIOPSY Right 2009 Benign ??? COLONOSCOPY 2017 ??? HEMICOLECTOMY Left 12/2017 ??? HERNIA REPAIR 1970 ??? INCONTINENCE SURGERY 2007 ??? INGUINAL HERNIA REPAIR Right 1969 ??? TUBAL LIGATION 1991 Prior to Admission medications Medication Sig Start Date End Date Taking? Authorizing Provider al & mag hydroxide hfqhmovtoai-ajmyaiplnviowuo-takyohsfr-nystatin (MAGIC MOUTHWASH) suspension 1-1-1-1 Swish and swallow 10 mL 4 (four) times a day as needed (mucositis). 04/17/18 Abbi Ventura MD ALPRAZolam (XANAX) 0.25 mg tablet 3 (three) times a day as needed for anxiety. 11/07/17 Historical Provider, amLODIPine (NORVASC) 5 mg tablet 02/21/18 Historical Provider, aspirin 81 mg chewable tablet 02/21/18 Historical Provider, atorvastatin (LIPITOR) 20 mg tablet 02/21/18 Historical Provider, bisacodyl EC (DULCOLAX EC) 5 mg EC tablet Take 1 tablet (5 mg total) by mouth 2 (two) times a day as needed for constipation. 01/06/18 Jennifer Overton MD BREO ELLIPTA 100-25 mcg/dose diskus inhaler Inhale every evening. 11/22/17 Historical Provider, cholecalciferol (VITAMIN D3) 2,000 unit capsule nightly. 10/04/17 Historical Provider, dexamethasone (DECADRON) 4 mg tablet Take 1 tab on days 2-4 of chemotherapy q 2 weeks. 01/31/18 MD Garrison diphenoxylate-atropine (LOMOTIL) 2.5-0.025 mg per tablet Take 1 tablet by mouth 4 (four) times a day as needed for diarrhea. 03/14/18 Abbi Ventura MD dulaglutide (TRULICITY) 0.75 mg/0.5 mL pen injector Inject 0.75 mg under the skin every 7 days Historical Provider, famotidine (PEPCID) 20 mg tablet Take 20 mg by mouth 2 (two) times a day. Historical Provider, hydroCHLOROthiazide (HYDRODIURIL) 12.5 mg tablet 02/24/18 Historical Provider, lidocaine-prilocaine (EMLA) cream Apply topically as needed for pain. Apply to port 1 hour before use and cover with tape. Patient not taking: Reported on 08/06/2018 01/31/18 Abbi Ventura MD ondansetron (ZOFRAN) 8 mg tablet Take 1 tablet (8 mg total) by mouth every 8 (eight) hours as needed for nausea or vomiting. . Take 1 tablet every 8 hours for nausea.prn 01/31/18 Abbi Ventura MD polyethylene glycol (MIRALAX) 17 gram packet Take 1 packet (17 g total) by mouth 2 (two) times a day as needed (constipation). 01/06/18 Jennifer Overton MD potassium chloride ER (KLOR-CON,K-DUR) 10 mEq CR tablet Take 1 tablet/capsule (10 mEq total) by mouth 2 (two) times a day . 07/09/18 07/09/19 Abbi Ventura MD prochlorperazine (COMPAZINE) 10 mg tablet Take 1 tablet (10 mg total) by mouth every 6 (six) hours as needed for nausea. 01/31/18 04/01/18 Abbi Ventura MD psyllium 0.52 gram capsule Take 1 capsule (0.52 g total) by mouth daily. In case of constipation Patient not taking: Reported on 08/06/2018 12/31/17 12/31/18 Kj Puga MD rivaroxaban (XARELTO) 20 mg tablet Take 1 tablet (20 mg total) by mouth daily. 06/13/18 Abbi Ventura MD sitaGLIPtin-metformin (JANUMET) 50-1,000 mg per tablet Take 1 tablet by mouth 2 (two) times a day with meals Historical Provider, venlafaxine XR (EFFEXOR-XR) 75 mg 24 hr capsule Take 1 capsule (75 mg total) by mouth daily. 02/20/18 02/20/19 Abbi Ventura MD Allergies Allergen Reactions ??? Tetanus Vaccines And Toxoid Swelling and Rash Social History Socioeconomic History ??? Marital status: Spouse name: None ??? Number of children: None ??? Years of education: None ??? Highest education level: None Occupational History ??? None Social Needs ??? Financial resource strain: None ??? Food insecurity: Worry: None Inability: None ??? Transportation needs: Medical: None Non-medical: None Tobacco Use ??? Smoking status: Former Smoker Start date: 1972 Last attempt to quit: 2016 Years since quittin.2 ??? Smokeless tobacco: Never Used Substance and Sexual Activity ??? Alcohol use: Yes Comment: socially ??? Drug use: No ??? Sexual activity: None Lifestyle ??? Physical activity: Days per week: None Minutes per session: None ??? Stress: None Relationships ??? Social connections: Talks on phone: None Gets together: None Attends faith service: None Active member of club or [...] 60 ??? Pancreatic cancer Sister 40 ??? Liver cancer Maternal Grandmother 80 ??? Heart attack Mother 70 ROS: Pertinent items are noted in HPI. A comprehensive review of systems was negative. PHYSICAL EXAMINATION: GENERAL: She is a well-developed, well-nourished woman in no acute distress. HEENT: Within normal limits. NECK: Neck is supple without lymphadenopathy or thyromegaly. LUNGS: Clear. HEART: Regular. ABDOMEN: Soft without organomegaly. EXTREMITIES: Warm without edema. NEUROLOGICAL: She is alert and oriented x 3. BREAST EXAMINATION: Bilateral breast examination reveals normal ptotic breasts bilaterally. The right breast is without any dominant masses, skin changes, nipple discharge, or axillary adenopathy. The left breast is without any dominant masses, skin changes, or axillary adenopathy. However, compression of the left nipple reveals no discharge today. IMAGING: I personally ordered reviewed and interpreted all of the imaging today. MAMMOGRAM FINDINGS: At 2:30 in the left breast middle depth, 6 cm from the nipple, there is a mass which has increased in size from 7 x 5 mm to 11 x 9 mm. Postoperative findings of left breast conservation therapy. No other significant finding in the left breast. ?? No suspicious finding in the right breast. ?? ULTRASOUND FINDINGS: Targeted ultrasound was performed in the area of the enlarging mammographic mass of the left breast as well as in the retroareolar left breast. At 3:00 in the left breast 4 cm from the nipple, there is an 11 x 7 x 10 mm simple cyst, corresponding to the mammographic mass of concern. ?? Ultrasound evaluation of the retroareolar left breast reveals no abnormality. No suspicious finding in the left breast. ? IMPRESSION: No suspicious finding in either breast. ? OVERALL FINAL ASSESSMENT: BI-RADS Category 2: Benign. IMPRESSION/RECOMMENDATION: Ms. Gerber is a 63 y.o. woman who presents today for consultation regarding her left nipple discharge. I reviewed the clinical and imaging findings with her. I explained toher Nipple discharge is likely related to her prior surgery. I have told the patient that she has no evidence of disease in her breast. I recommend she undergo re-excision of her biopsy cavity. We have discussed the risks and benefits of bilateral mastectomy given her genetic mutation and the patient would like to do close clinical follow-up. We will schedule her for a re-excision. She understands and wishes to proceed. I will therefore make arrangements to schedule this in the operating room as soon as possible and I will also make arrangements for her to meet with the anesthesiologist. I answered all of her questions thoroughly and she does seem pleased with this plan of approach. I encouraged her to contact me in the interim if any new questions or concerns arise. Kianna Bunch MD PhD documented in this encounter Plan of Treatment Not on file documented as of this encounter Visit Diagnoses Diagnosis Nipple discharge in female- Primary documented in this encounter Discontinued Medications Medication Sig Discontinue Reason Start Date End Da te venlafaxine XR (EFFEXOR-XR) 75 mg 24 hr capsule Take 1 capsule (75 mg total) by mouth daily. 02/20/2018 08/11/2018 documented as of this encounter Historical Medications * This list may reflect changes made after this encounter. sertraline (ZOLOFT) 50 mg tablet Take 50 mg by mouth daily 09/22/2018 added in this encounter Care Teams Clothing Presser Relationship Specialty Start Date End Date Ravi Smith MD PCP - General 11/04/17 09/27/21 Aft, Kianna Machado MD PhD [address] [place] [address] Surgeon Surgical Oncology 11/22/17 Santiago Gilbert MD [address] [facility] [place], [place] [id number] Care Taker Gastroenterology 11/22/17 documented as of this encounter
--- OUTSIDE RECORDS SUMMARY | 2024-04-24 13:48 | XMS_ITS | Encounter Summary ---
Author Organization [facility] Address [address] [place] [address] Phone Care Team Providers Care Food Selector Name Role Phone Ravi Smith MD Primary Care Provider [phone] Aft, Kianna Machado MD PhD Unavailable [phone] Santiago Gilbert MD Unavailable [phone] Encounter Details Date Type Department Care Team (Late st Contact Info) Description 07/24/2018 Orders Only [facility] Oncology [address] [place] [address] Abbi Ventura MD [address] [facility] [address] [place] [address] Antineoplastic chemotherapy induced anemia (Primary Dx) Social History Tobacco Use Types Packs/Day Years Used Date Smoking Tobacco: Former Cigarettes 2015 Smokeless Tobacco: Never Alcohol Use Standard Drinks/Week Comments Yes 0 (1 standard drink = 0.6 oz pur e alcohol) socially Comments No Sex and Gender Information Value Date Recorded Sex Assigned at Not on file 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 Gender Identity Not on file Sexual Orientation Not on file documented as of this encounter Plan of Treatment Not on file documented as of this encounter Visit Diagnoses Diagnosis Antineoplastic chemotherapy induced anemia- Primary documented in this encounter Care Teams Food Selector Relationship Specialty Start Date End Date Ravi Smith MD PCP - General 11/04/17 09/27/21 Aft, Kianna Machado MD PhD [address] [place] [address] Surgeon Surgical Oncology 11/22/17 Santiago Gilbert MD [address] [place] [address] Talent Development Manager Gastroenterology 11/22/17 documented as of this encounter
--- OUTSIDE RECORDS SUMMARY | 2024-04-24 13:48 | XMS_ITS | Encounter Summary ---
Author Organization [facility] Address [address] [place] [address] Phone Care Team Providers Care Tissue Packer Name Role Phone Ravi Smith MD Primary Care Provider [phone] Aft, Kianna Machado MD PhD Unavailable [phone] Santiago Gilbert MD Unavailable [phone] Encounter Details Date Type Department Care Team (Latest Contact Info) Description 08/27/2018 11:00 AM CDT Clinical Support 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, 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) CBC WITH AUTO DIFFERENTIAL Routine 08/27/2018 11:03 AM CDT Malignant neoplasm of descending colon (CMS/HCC) Malignant neoplasm of upper-inner quadrant of left breast in female, 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) COMPREHENSIVE METABOLIC PANEL STAT 08/27/2018 11:03 AM CDT Malignant neoplasm of descending colon (CMS/HCC) Malignant neoplasm of upper-inner quadrant of left breast in female, 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) documented in this encounter Results * (ABNORMAL) Differential, auto (08/27/2018 11:03 AM CDT) Neutrophil abs 8.3(H) 1.7 - 6.5 K/cumm [facility] Imm gran abs 0.4(H) 0.0 - 0.1 K/cumm [facility] Lymphocyte abs 0.8 0.8 - 3.3 K/cumm [facility] Monocyte abs 0.6 0.2 - 0.8 K/cumm [facility] Eosinophil abs 0.1 0.0 - 0.5 K/cumm [facility] Basophil abs 0.1 0.0 - 0.1 K/cumm [facility] Neutrophil pct 81.1 % [facility] Comment: Interpretive Data Percent cell count reference ranges are not reported, since discordance with absolute values may lead to misinterpretation of CBC data. Current Interpretive Data was last revised on 2017. Imm gran pct 4.0 % [facility] Comment: Interpretive Data Percent cell count reference ranges are not reported, since discordance with absolute values may lead to misinterpretation of CBC data. Current Interpretive Data was last revised on 2017. Lymphocyte pct 7.9 % [facility] Comment: Interpretive Data Percent cell count reference ranges are not reported, since discordance with absolute values may lead to misinterpretation of CBC data. Current Interpretive Data was last revised on 2017. Monocyte pct 5.8 % [facility] Comment: Interpretive Data Percent cell count reference ranges are not reported, since discordance with absolute values may lead to misinterpretation of CBC data. Current Interpretive Data was last revised on 2017. Eosinophil pct 0.6 % [facility] Comment: Interpretive Data Percent cell count reference ranges are not reported, since discordance with absolute values may lead to misinterpretation of CBC data. Current Interpretive Data was last revised on 2017. Basophil pct 0.6 % [facility] Comment: Interpretive Data Percent cell count reference ranges are not reported, since discordance with absolute values may lead to misinterpretation of CBC data. Current Interpretive Data was last revised on 2017. Blood specimen (specimen) 08/27/2018 11:03 AM CDT 08/27/2018 11:04 AM CDT Narrative [facility] - 08/27/2018 11:06 AM CDT us Abbi Ventura MD LAB BLOOD ORDERABLES Final Resul t [facility] Department [place] [address] * (ABNORMAL) CBC with auto differential (08/27/2018 11:03 AM CDT) WBC 10.3(H) 3.8 - 9.9 K/cumm [facility] Hgb 8.1(L) 11.9 - 15.5 g/dL [facility] Hct 24.4(L) 35.6 - 45.5 % [facility] Plt 130(L) 150 - 400 K/cumm [facility] MPV 9.5 9.1 - 12.3 fL [facility] RBC 2.46(L) 3.90 - 5.20 M/cumm [facility] MCV 99.2(H) 81.3 - 96.4 fL [facility] MCH 32.9 27.1 - 33.3 pg [facility] MCHC 33.2 32.3 - 35.7 g/dL [facility] RDW CV 16.5(H) 11.1 - 14.9 % [facility] RDW SD 57.5(H) 35.7 - 48.1 fL [facility] NRBC abs 0.03(H) 0.00 - 0.01 K/cumm [facility] Blood specimen (specimen) 08/27/2018 11:03 AM CDT 08/27/2018 11:04 AM CDT Narrative [facility] - 08/27/2018 11:06 AM CDT us Abbi Ventura MD LAB BLOOD ORDERABLES Final Resul t [facility] Department [place] [address] * (ABNORMAL) Comprehensive metabolic panel (08/27/2018 11:03 AM CDT) Sodium 139 135 - 145 mmol/L [facility] Potassium, pl 3.4 3.3 - 4.9 mmol/L [facility] Chloride 104 97 - 110 mmol/L [facility] CO2 22 22 - 32 mmol/L [facility] Anion gap 13 2 - 15 mmol/L [facility] BUN 16 8 - 25 mg/dL [facility] Creatinine 1.24(H) 0.60 - 1.10 mg/dL [facility] Glucose 142 70 - 199 mg/dL [facility] Comment: Interpretive Data Fasting glucose >/= [...] 2017. Calcium 9.2 8.5 - 10.3 mg/dL [facility] Bilirubin, total 0.5 0.1 - 1.2 mg/dL [facility] Protein, pl 6.8 6.5 - 8.5 g/dL [facility] Albumin 4.2 3.5 - 5.0 g/dL [facility] Alk phos 84 40 - 130 Units/L [facility] ALT 15 7 - 45 Units/L [facility] AST 21 10 - 45 Units/L [facility] Blood specimen (specimen) 08/27/2018 11:03 AM CDT 08/27/2018 11:04 AM CDT Narrative [facility] - 08/27/2018 11:25 AM CDT us Abbi Ventura MD LAB BLOOD ORDERABLES Final Resul t [facility] Department [place] [address] documented in this encounter Visit Diagnoses Diagnosis Malignant neoplasm of descending colon (CMS/HCC) (HCC) Malignant neoplasm 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, estrogen receptor negative (HCC) documented in this encounter Care Teams Tissue Packer Relationship Specialty Start Date End Date Ravi Smith MD PCP - General 11/04/17 09/27/21 Aft, Kianna Machado MD PhD [address] [place] [address] Surgeon Surgical Oncology 11/22/17 Santiago Gilbert MD [address] [place] [address] Paper Cone Maker Gastroenterology 11/22/17 documented as of this encounter
--- OUTSIDE RECORDS SUMMARY | 2024-04-24 13:48 | XMS_ITS | Encounter Summary ---
Author Organization [facility] Address [address] [place] [address] Phone Care Team Providers Care Steam Fitter Supervisor Maintenance Name Role Phone Ravi Smith MD Primary Care Provider [phone] Aft, Kianna Machado MD PhD Unavailable [phone] Santiago Gilbert MD Unavailable [phone] Reason for Visit * Cardiology (Routine) - Closed Specialty Diagnoses / Procedures Referred By Contac t Referred To Contact Diagnoses Malignant neoplasm of upper-inner quadrant of left breast in female, estrogen receptor negative (HCC) Shortness of breath Procedures Transthoracic Echo Complete W Doppler/CF Abbi Ventura MD Phone: tel: fax: [facility] (All Locations) Referral ID Status Reason Start Date Expiration Date Visits Re quested Visits Authorized [id number] Closed 08/06/2018 02/15/2020 1 1 Encounter Details Date Type Department Care Team (Latest Contact Info) Description 08/07/2018 8:00 AM CDT Ancillary Procedure [facility] Cardiology [address] [place] [address] Malignant neoplasm of upper-inner quadrant of left breast in female, 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); Shortness of breath Social History Tobacco Use Types Packs/Day Years Used Date Smoking Tobacco: Former Cigarettes 2015 Smokeless Tobacco: Never Alcohol Use Standard Drinks/Week Comments Yes 0 (1 standard drink = 0.6 oz pur e alcohol) socially Comments No Sex and Gender Information Value Date Recorded Sex Assigned at Not on file 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 Gender Identity Not on file Sexual Orientation Not on file documented as of this encounter Plan of Treatment Not on file documented as of this encounter Procedures Procedure Name Priority Date/Time Associated Diagnosis Comments TRANSTHORACIC ECHO (TTE) COMPLETE W DOPPLER/CF WO CONTRAST Routine 08/07/2018 8:45 AM CDT Malignant neoplasm of upper-inner quadrant of left breast in female, 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) Shortness of breath documented in this encounter Results * TRANSTHORACIC ECHO (TTE) COMPLETE W DOPPLER/CF WO CONTRAST (08/07/2018 8:45 AM CDT) Anatomical Region Laterality Modality Ultrasound 08/07/2018 8:00 AM CDT Narrative 08/07/2018 9:22 AM CDT Patient name: Aleah Gerber Date of test: 08/07/2018 Type of test: TTE [facility] #: [id number] Date of : 1955 (F) Overnight Babysitter: Olivia Narayanan [facility] Referring Physician: ABBI VENTURA MD Contrast Agent: Contrast Administered by: Supervised/Interpreted by: Wilberto ??MD Crystal Diagnosis: High Risk Meds Location: [facility] Reason for test: High Risk Meds, Shortness [...] 2=Hypo 3=Akinetic 4=Dyskin./Aneurysm 0=Not visualized) Parasternal Long [place]:MAS=1 BAS=1 MP=1 BP=1 Parasternal Short [place]:MAS=1 MS=1 GA=1 MP=1 ML=1 MA=1 Apical 4 Chambers:=1 MS=1 BS=1 BL=1 GA=1 AL=1 Apical 2 Chambers:AI=1 GA=1 BI=1 BA=1 MA=1 AA=1 LV Global Longitudinal [...] Crystal By signing this report, the attending nurse first assist certifies that he or she has personally supervised and interpreted the echocardiogram and has reviewed and or edited and agrees with the written comments contained within the report. Procedure Note Wilberto Rojas MD - 08/07/2018 Patient name: Aleah Gerber Date of test: 08/07/2018 Type of test: [facility] #: [id number] Date of : 1955 (F) Overnight [facility]an[facility] Referring Physician: ABBI VENTURA MD Contrast Agent: Contrast Administered by: Supervised/Interpreted by: Wilberto Rojas MD Diagnosis: High Risk Meds Location: [facility] Reason for test: High Risk Meds, Shortness [...] 2=Hypo 3=Akinetic 4=Dyskin./Aneurysm 0=Not visualized) Parasternal Long [place]:MAS=1 BAS=1 MP=1 BP=1 Parasternal Short [place]:MAS=1 MS=1 GA=1 MP=1 ML=1 MA=1 Apical 4 Chambers:=1 MS=1 BS=1 BL=1 GA=1 AL=1 Apical 2 Chambers:AI=1 GA=1 BI=1 BA=1 MA=1 AA=1 LV Global Longitudinal [...] MD By signing this report, the attending nurse first assist certifies that he or she has personally supervised and interpreted the echocardiogram and has reviewed and or edited and agrees with the written comments contained within the report. Abbi Ventura MD CV ECHO PROCEDURES Final Result documented in this encounter Visit Diagnoses Diagnosis Malignant neoplasm of upper-inner quadrant of left breast in female, estrogen receptor negative (HCC) Shortness of breath documented in this encounter Care Teams Steam Fitter Supervisor Maintenance Relationship Specialty Start Date End Date Ravi Smith MD PCP - General 11/04/17 09/27/21 Aft, Kianna Machado MD PhD [address] [place] [address] Surgeon Surgical Oncology 11/22/17 Santiago Gilbert MD [address] [place] [address] Travel Accommodation Inspector Gastroenterology 11/22/17 documented as of this encounter
--- OUTSIDE RECORDS SUMMARY | 2024-04-24 13:48 | XMS_ITS | Encounter Summary ---
Author Organization [facility] Address [address] [place] [address] Phone Care Team Providers Care Bottle Blower Name Role Phone Ravi Smith MD Primary Care Provider [phone] Aft, Kianna Machado MD PhD Unavailable [phone] Santiago Gilbert MD Unavailable [phone] Encounter Details Date Type Department Care Team (Late st Contact Info) Description 08/14/2018 Orders Only [facility] Scanning, Provider Social History Tobacco Use Types Packs/Day Years Used Date Smoking Tobacco: Former Cigarettes 2015 Smokeless Tobacco: Never Alcohol Use Standard Drinks/Week Comments Yes 0 (1 standard drink = 0.6 oz pur e alcohol) socially Comments No Sex and Gender Information Value Date Recorded Sex Assigned at Not on file 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 Gender Identity Not on file Sexual Orientation Not on file documented as of this encounter Plan of Treatment Not on file documented as of this encounter Procedures Procedure Name Priority Date/Time Associated Diagnosis Comments PULMONARY - RESULT SCAN 08/14/2018 documented in this encounter Results * PULMONARY - RESULT SCAN (08/14/2018) Anatomical Region Laterality Modality Other us Provider Scanning Final Result documented in this encounter Visit Diagnoses Not on filedocumented in this encounter Care Teams Bottle Blower Relationship Specialty Start Date End Date Ravi Smith MD PCP - General 11/04/17 09/27/21 Aft, Kianna Machado MD PhD [address] [place] [address] Surgeon Surgical Oncology 11/22/17 Santiago Gilbert MD [address] [place] [address] Chair Installer Gastroenterology 11/22/17 documented as of this encounter
--- OUTSIDE RECORDS SUMMARY | 2024-04-24 13:48 | XMS_ITS | Encounter Summary ---
Author Organization [facility] Address [address] [place] [address] Phone Care Team Providers Care Nurse Coordinator Name Role Phone Ravi Smith MD Primary Care Provider [phone] Kianna Bunch MD PhD Unavailable [phone] Santiago Gilbert MD Unavailable [phone] Encounter Details Date Type Department Care Team (Late st Contact Info) Description 08/08/2018 Orders Only [facility] Oncology [address] [place] [address] Fatemeh Zarate, LYDIA Social History Tobacco Use Types Packs/Day Years Used Date Smoking Tobacco: Former Cigarettes 2015 Smokeless Tobacco: Never Alcohol Use Standard Drinks/Week Comments Yes 0 (1 standard drink = 0.6 oz pur e alcohol) socially Comments No Sex and Gender Information Value Date Recorded Sex Assigned at Not on file 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
--- OUTSIDE RECORDS SUMMARY | 2024-04-24 13:48 | XMS_ITS | Encounter Summary ---
Author Organization [facility] Address [address] [place] [address] Phone Care Team Providers Care Refrigeration Repair Supervisor Name Role Phone Ravi Smith MD Primary Care Provider [phone] Aft, Kianna Machado MD PhD Unavailable [phone] Santiago Gilbert MD Unavailable [phone] Encounter Details Date Type Department Care Team (Late st Contact Info) Description 08/11/2018 Orders Only [facility] [address] [place] [address] Abbi Ventura MD [address] 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
--- OUTSIDE RECORDS SUMMARY | 2024-04-24 13:48 | XMS_ITS | Encounter Summary ---
Author Organization [facility] Address [address] [place] [address] Phone Care Team Providers Care Electromechanical Technician Name Role Phone Ravi Smith MD Primary Care Provider [phone] Aft, Kianna Machado MD PhD Unavailable [phone] Santiago Gilbert MD Unavailable [phone] Reason for Visit * Episode Based Medications (Routine) - Closed Specialty Diagnoses / Procedures Referred By Vijaya t Referred To Contact Oncology Diagnoses Malignant neoplasm of upper-inner quadrant of left breast in female, estrogen receptor negative (HCC) Encounter for person encountering health services Procedures UT DOXORUBIC HCL 10 MG VL CHEMO UT CYCLOPHOSPHAMIDE 100 MG INJ UT INJECTION, PEGFILGRASTIM 6MG UT PALONOSETRON HCL UT FOSAPREPITANT INJECTION Dose-Dense AC: DOXOrubicin (ADRIAMYCIN) / Cyclophosphamide) with Abbi Chavez MD [address] [place] [address] Phone: tel: fax: [facility] [address] [place] [address] Phone: tel: fax: Referral ID Status Reason Start Date Expiration Date Visits Re quested Visits Authorized [id number] Closed 06/25/2018 09/02/2018 1 36 Encounter Details Date Type Department Care Team (Latest Contact Info) Description 08/06/2018 8:45 AM CDT Clinical Support [facility] [address] [place] [address] Encounter for person encountering health services; Malignant [...] file 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 Gender Identity Not on file Sexual Orientation Not on file documented as of this encounter Plan of Treatment Not on file documented as of this encounter Procedures Procedure Name Priority Date/Time Associated Diagnosis Comments DIFFERENTIAL AUTO Routine 08/06/2018 9:0 8 AM CDT Encounter for person encountering health services Malignant neoplasm of upper-inner quadrant of left breast in female, 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) CBC WITH AUTO DIFFERENTIAL Routine 08/06/2018 9:08 AM CDT Encounter for person encountering health services Malignant neoplasm of upper-inner quadrant of left breast in female, 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) MANUAL DIFFERENTIAL Routine 08/06/2018 9 :08 AM CDT Encounter for person encountering health services Malignant neoplasm of upper-inner quadrant of left breast in female, 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) COMPREHENSIVE METABOLIC PANEL STAT 08/06/2018 9:08 AM CDT Encounter for person encountering health services Malignant neoplasm of upper-inner quadrant of left breast in female, 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) documented in this encounter Results * (ABNORMAL) Manual Differential (08/06/2018 9:08 AM CDT) Differential Auto [facility] RBC morphology Present(A ) [facility] Anisocytosis Slight(A) [facility] Platelet estimate Decreased (A) [facility] Blood specimen (specimen) 08/06/2018 9:08 AM CDT 08/06/2018 9:17 AM CDT Narrative [facility] - 08/06/2018 9:53 AM CDT us [place] Montoya STRETCHING MACHINE OPERATOR LAB BLOOD ORDERABLES Final Result [facility] [place] [address] * (ABNORMAL) Differential, auto (08/06/2018 9:08 AM CDT) Neutrophil abs 10.3(H) 1.7 - 6.5 K/cumm [facility] Imm gran abs 1.8(H) 0.0 - 0.1 K/cumm [facility] Lymphocyte abs 0.8 0.8 - 3.3 K/cumm [facility] Monocyte abs 0.8 0.2 - 0.8 K/cumm [facility] Eosinophil abs 0.0 0.0 - 0.5 K/cumm [facility] Basophil abs 0.1 0.0 - 0.1 K/cumm [facility] Neutrophil pct 74.7 % [facility] Comment: Interpretive Data Percent cell count reference ranges are not reported, since discordance with absolute values may lead to misinterpretation of CBC data. Current Interpretive Data was last revised on 2017. Imm gran pct 12.7 % [facility] Comment: Interpretive Data Percent cell count reference ranges are not reported, since discordance with absolute values may lead to misinterpretation of CBC data. Current Interpretive Data was last revised on 2017. Lymphocyte pct 5.7 % [facility] Comment: Interpretive Data Percent cell count reference ranges are not reported, since discordance with absolute values may lead to misinterpretation of CBC data. Current Interpretive Data was last revised on 2017. Monocyte pct 5.9 % [facility] Comment: Interpretive Data Percent cell count reference ranges are not reported, since discordance with absolute values may lead to misinterpretation of CBC data. Current Interpretive Data was last revised on 2017. Eosinophil pct 0.1 % [facility] Comment: Interpretive Data Percent cell count reference ranges are not reported, since discordance with absolute values may lead to misinterpretation of CBC data. Current Interpretive Data was last revised on 2017. Basophil pct 0.9 % [facility] Comment: Interpretive Data Percent cell count reference ranges are not reported, since discordance with absolute values may lead to misinterpretation of CBC data. Current Interpretive Data was last revised on 2017. Blood specimen (specimen) 08/06/2018 9:08 AM CDT 08/06/2018 9:17 AM CDT Narrative [facility] - 08/06/2018 9:53 AM CDT us [place] Montoya NP LAB BLOOD ORDERABLES Final Result [facility] [place] [address] * (ABNORMAL) CBC with auto differential (08/06/2018 9:08 AM CDT) WBC 13.8(H) 3.8 - 9.9 K/cumm [facility] Hgb 8.8(L) 11.9 - 15.5 g/dL [facility] Hct 26.2(L) 35.6 - 45.5 % [facility] Plt 97(L) 150 - 400 K/cumm [facility] MPV 10.0 9.1 - 12.3 fL [facility] RBC 2.66(L) 3.90 - 5.20 M/cumm [facility] MCV 98.5(H) 81.3 - 96.4 fL [facility] MCH 33.1 27.1 - 33.3 pg [facility] MCHC 33.6 32.3 - 35.7 g/dL [facility] RDW CV 14.9 11.1 - 14.9 % [facility] RDW SD 50.5(H) 35.7 - 48.1 fL [facility] NRBC abs 0.05(H) 0.00 - 0.01 K/cumm [facility] Blood specimen (specimen) 08/06/2018 9:08 AM CDT 08/06/2018 9:17 AM CDT Narrative [facility] - 08/06/2018 9:21 AM CDT [place] Montoya NP LAB BLOOD ORDERABLES Final Result [facility] [place] [address] * (ABNORMAL) Comprehensive metabolic panel (08/06/2018 9:08 AM CDT) Sodium 145 135 - 145 mmol/L [facility] Potassium, pl 3.5 3.3 - 4.9 mmol/L [facility] Chloride 106 97 - 110 mmol/L [facility] CO2 25 22 - 32 mmol/L [facility] Anion gap 14 2 - 15 mmol/L [facility] BUN 16 8 - 25 mg/dL [facility] Creatinine 1.22(H) 0.60 - 1.10 mg/dL [facility] Glucose 190 70 - 199 mg/dL [facility] [...] 2017. Calcium 10.1 8.5 - 10.3 mg/dL [facility] Bilirubin, total 0.5 0.1 - 1.2 mg/dL [facility] Protein, pl 6.7 6.5 - 8.5 g/dL [facility] Albumin 4.2 3.5 - 5.0 g/dL [facility] Alk phos 103 40 - 130 Units/L [facility] ALT 19 7 - 45 Units/L [facility] AST 25 10 - 45 Units/L [facility] Blood specimen (specimen) 08/06/2018 9:08 AM CDT 08/06/2018 9:17 AM CDT Narrative [facility] - 08/06/2018 9:42 AM CDT us [place] Montoya STRETCHING MACHINE OPERATOR LAB BLOOD ORDERABLES Final Result [facility] [place] [address] documented in this encounter Visit Diagnoses Diagnosis Encounter for person encountering health services Malignant neoplasm of upper-inner quadrant of left breast in female, estrogen receptor negative (HCC) documented in this encounter Orders Appointment Requests Count Last Ordered Date Fi rst Ordered Date ONCBCN LAB APPOINTMENT 1 08/06/2018 documented in this encounter Care Teams Electromechanical Technician Relationship Specialty Start Date End Date Ravi Smith MD PCP - General 11/04/17 09/27/21 Aft, Kianna Machado MD PhD [address] [place] [address] Surgeon Surgical Oncology 11/22/17 Santiago Gilbert MD [address] [place] [address] [facility] 11/22/17 documented as of this encounter
--- OUTSIDE RECORDS SUMMARY | 2024-04-24 13:48 | XMS_ITS | Encounter Summary ---
Author Organization [facility] Address [address] [place] [address] Phone Care Team Providers Care Car Park Attendant Name Role Phone Ravi Smith MD Primary Care Provider [phone] Aft, Kianna Machado MD PhD Unavailable [phone] Santiago Gilbert MD Unavailable [phone] Reason for Referral * Diagnostic Imaging (Routine) - Closed Specialty Diagnoses / Procedures Referred By Vijaya simpson Referred To Contact Radiology Diagnoses 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, estrogen receptor negative (HCC) Procedures MRI Spine Cervical and Thoracic W WO Contrast Trena Obando MD Phone: tel: fax: [address] [address] Referral ID Status Reason Start Date Expiration Date Visits Re quested Visits Authorized [id number] Closed 08/14/2018 09/28/2018 1 1 * Diagnostic Lab (Routine) - Closed Specialty Diagnoses / Procedures Referred By Vijaya t Referred To Contact Lab Diagnoses Drug-induced polyneuropathy (HCC) Procedures Neuromuscular Testing ([facility]) Trena Obando MD Phone: tel: fax: Referral ID Status Reason Start Date Expiration Date Visits Re quested Visits Authorized [id number] Closed 08/14/2018 02/23/2020 1 1 * Neurology (Routine) - Closed Specialty Diagnoses / Procedures Referred By Contac t Referred To Contact Diagnoses Drug-induced polyneuropathy (HCC) Procedures EMG/NCV -Procedure performed at: [facility] EMG Lab; Clinical Summary: 63 yo woman with breast and colon cancer, s/p oxaliplatin; on XARELTO p/w difficulties walking; Reason for referral or diagnostic question: please evaluate for peripheral neuropath... Trena Obando MD Phone: tel: fax: [facility] (All Locations) Referral ID Status Reason Start Date Expiration Date Visits Re quested Visits Authorized [id number] Closed 08/14/2018 02/23/2020 1 1 Reason for Visit * Reason Comments New Patient * Consultation (Routine) - Closed Specialty Diagnoses / Procedures Referred By Contac t Referred To Contact Neurology Diagnoses 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, estrogen receptor negative (HCC) Abbi Ventura MD Phone: tel: fax: Rika Hawk MA Referral ID Status Reason Start Date Expiration Date V isits Requested Visits Authorized [id number] Closed Specialty Services Required 05/21/2018 11/30/2019 1 1 Encounter Details Date Type Department Care Team (Latest Contact Info) Description 08/14/2018 9:00 AM CDT Office Visit [facility] Neuro Muscle [address] [place] [address] [place] [address] Trena Obando MD [address] [place] [address] Drug-induced polyneuropathy (CMS/HCC) (Primary Dx); Malignant neoplasm of descending colon (CMS/HCC); Malignant neoplasm of upper-inner quadrant of left breast in female, 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); Gait difficulty Social History Tobacco Use Types Packs/Day Years Used Date Smoking Tobacco: Former Cigarettes 2015 Smokeless Tobacco: Never Alcohol Use Standard Drinks/Week Comments Yes 0 (1 standard drink = 0.6 oz pur e alcohol) socially Comments No Sex and Gender Information Value Date Recorded Sex Assigned at Not on file Legal 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 Make appointment for EMG/NCS across the [address] 2. Laboratory testing 3rd floor 3. Please call me in 3 weeks to discuss results of your testing documented in this encounter Progress Notes * Trena Obando MD - 08/14/2018 9:00 AM CDT Patient Name: ALEAH GERBER Medical Record Number (MRN): [id number] Date of (): 1955 Encounter Date: 08/14/2018 Chief Complaint Aleah Gerber is a 63 y.o. female seen today for New Patient. HPI I had the pleasure of seeing Aleah Gerber today in our Neuromuscular clinic at [facility] for initial evaluation of the difficulties in the setting of chemotherapy containing oxaliplatin. Ms. Gerber is a 63-year-old woman who was diagnosed with colon cancer in October 2017 and with breast cancer 2 weeks afterwards. She presents today with gait difficulties. Ms. Sweeney reports that she had sciatica before starting chemotherapy. At that time she had low back pain, which sometimes radiated into one or the other leg. Since she started chemotherapy, she has low back pain, which radiates to the back of both legs and around the front of her knees. This pain typically happens right after she sits down or gets up and lasts about 25 seconds. The pain makes it difficult for her to walk. However, also when the pain subsides she has difficulties walking. She attributes the difficulties to weakness in her legs. She can move them, but they feel weak. She can walk a little bit, about 10 steps. The difficulties walking started gradually, she cannot remember when exactly. It became worse during chemo and continued to get worse during chemotherapy. The last chemotherapy was 2 days ago. She has no problems getting out of a chair. She does have difficulties going upstairs and has to hold onto the railing. She does not know whether she has any difficulties lifting above her head since shedid not do this for a long long time. When she has this feeling radiating from her low back into her legs, sometimes the bladder losens up and she has urinary incontinence. However this does not alw ays happen when she has the pain sensation. She has no foot drop. She has no numbness in feet or hands She has no tingling in feet or hands, except when it gets cold, then she gets tingling in her feet and her left hand. She can feel hot and cold on feet and hands. She has sometimes imbalance. She has no difficulties chewing or swallowing. She has problems breathing and is very easily short of breath. She had stable COPD before her cancer diagnosis. She then had acute pulmonary emboli 2-3 months ago. She takes Xarelto for the PE and DVT,but since then, her shortness of breath has increased considerably. She was diagnosed with diabetes mellitus type 2 when she started chemotherapy. Her last HbA1c was 8.6%. History of chemotherapy copied from Oncology note: 1. Adjuvant FOLFOX chemotherapy started on 02/06/18 2. Pt went to ER after cycle 2 of [...] by 25% and 5FU/LV continued at full dose. 3. For cycle 4, patient declined Oxaliplatin as she was concerned that she had diarrhea and mood changes due to Oxaliplatin. Patient received 5FU/LV at full dose 4. For cycle 5 of adjuvant chemotherapy she got 5FU/LV at full dose and Oxaliplatin at 50% dose. She was willing to try one more dose of Oxaliplatin at 50% reduced dose to see how it goes 5. Cycle 6 of FOLFOX with 5FU/LV at 25% reduced dose ( 25% dose reduced due to grade 2 mucositis) and oxaliplatin at 50% reduced dose - Allergic reaction to oxaliplatin during cycle 6 of FOLFOX - mycositis Allergies Allergen Reactions ??? Tetanus Vaccines And Toxoid Swelling and Rash Current Outpatient Medications: ? ? al & mag hydroxide wpifqwitpri-dnexacjxorwbylw-fefyynezi-nystatin (MAGIC MOUTHWASH) suspension 1-1-1-1, Swish and swallow 10 mL 4 (four) times a day as needed (mucositis)., Disp: 480 mL, Rfl:2 ??? ALPRAZolam (XANAX) 0.25 mg tablet, 3 (three) times a day as needed for anxiety. , Disp: , Rfl: ??? amLODIPine (NORVASC) 5 mg tablet, , Disp: , Rfl: 0 ??? atorvastatin (LIPITOR) 20 mg tablet, , Disp: , Rfl: 0 ??? bisacodyl EC (DULCOLAX EC) 5 mg EC tablet, Take 1 tablet (5 mg total) by mouth 2 (two) times a day as needed for constipation., Disp: 30 tablet, Rfl: 0 ??? BREO ELLIPTA 100-25 mcg/dose diskus inhaler, Inhale every evening. , Disp: , Rfl: 1 ??? cholecalciferol (VITAMIN D3) 2,000 unit capsule, nightly. , Disp: , Rfl: ??? dexamethasone (DECADRON) 4 mg tablet, Take 1 tab on days 2-4 of chemotherapy q 2 weeks., Disp: 10 tablet, Rfl: 3 ??? diphenoxylate-atropine (LOMOTIL) 2.5-0.025 mg per tablet, Take 1 tablet by mouth 4 (four) timesa day as needed for diarrhea., Disp: 60 tablet, Rfl: 3 ??? dulaglutide (TRULICITY) 0.75 mg/0.5 mL pen injector, Inject 0.75 mg under the skin every 7 days, Disp: , Rfl: ??? famotidine (PEPCID) 20 mg tablet, Take 20 mg by mouth 2 (two) times a day., Disp: , Rfl: ??? hydroCHLOROthiazide (HYDRODIURIL) 12.5 mg tablet, , Disp: , Rfl: 0 ??? lidocaine-prilocaine (EMLA) cream, Apply topically as needed for pain. Apply to port 1 hour before use and cover with tape., Disp: 30 g, Rfl: 3 ??? ondansetron (ZOFRAN) 8 mg tablet, Take 1 tablet (8 mg total) by mouth every 8 (eight) hours as needed for nausea or vomiting. . Take 1 tablet every 8 hours for nausea.prn, Disp: 30 tablet, Rfl: 3 ??? polyethylene glycol (MIRALAX) 17 gram packet, Take 1 packet (17 g total) by mouth 2 (two) timesa day as needed (constipation)., Disp: 30 packet, Rfl: 0 ??? potassium chloride ER (KLOR-CON,K-DUR) 10 mEq CR tablet, Take 1 tablet/capsule (10 mEq total) by mouth 2 (two) times a day ., Disp: 30 tablet/capsule, Rfl: 3 ??? psyllium 0.52 gram capsule, Take 1 capsule (0.52 g total) by mouth daily. In case of constipation, Disp: 30 capsule, Rfl: 11 ??? rivaroxaban (XARELTO) 20 mg tablet, Take 1 tablet (20 mg total) by mouth daily., Disp: 30 tablet, Rfl: 6 ??? sertraline (ZOLOFT) 50 mg tablet, Take 50 mg by mouth daily, Disp: , Rfl: ??? sitaGLIPtin-metformin (JANUMET) 50-1,000 mg per tablet, Take 1 tablet by mouth 2 (two) times a day with meals, Disp: , Rfl: ??? aspirin 81 mg chewable tablet, , Disp: , Rfl: 0 ??? prochlorperazine (COMPAZINE) 10 mg tablet, Take 1 tablet (10 mg total) by mouth every 6 (six) hours as needed for nausea., Disp: 30 tablet, Rfl: 3 Patient Active Problem List Diagnosis ??? Malignant neoplasm of upper-inner quadrant of left breast in female, estrogen receptor negative(CMS/HCC) ??? Malignant neoplasm of descending colon (CMS/HCC) ??? Dehydration ??? Hypokalemia ??? Diarrhea ??? Leg weakness, bilateral ??? Acute pulmonary embolism (CMS/HCC) ??? Encounter for person encountering health services ??? Antineoplastic chemotherapy induced anemia ??? Drug-induced polyneuropathy (CMS/HCC) ??? Gait difficulty Past Medical History: Diagnosis Date ??? Anemia [...] ??? BREAST BIOPSY Right 2008 Benign ??? COLONOSCOPY 2017 ??? HEMICOLECTOMY Left 12/2017 ??? HERNIA REPAIR 1970 ??? INCONTINENCE SURGERY 2007 ??? INGUINAL HERNIA REPAIR Right 1969 ??? TUBAL LIGATION 1992 Family History Problem Relation Age of Onset ??? Prostate cancer Father 60 ??? Pancreatic cancer Sister 40 ??? Liver cancer Maternal Grandmother 80 ??? Heart attack Mother 70 Social History Socioeconomic History ??? Marital status: Spouse name: Not on file ??? Number of children: Not on file ??? Years of education: Not on file ??? Highest education level: Not on file Occupational History ??? Not on file Social Needs ??? Financial resource strain: Not on file ??? Food insecurity: Worry: Not on file Inability: Not on file ??? Transportation needs: Medical: Not on file Non-medical: Not on file Tobacco Use ??? Smoking status: Former Smoker Start date: 1972 Last attempt to quit: 2016 Years since quittin.2 ??? Smokeless tobacco: Never Used Substance and Sexual Activity ??? Alcohol use: Yes Comment: socially ??? Drug use: No ??? Sexual activity: Not on file Lifestyle ??? Physical activity: Days per week: Not on file Minutes per session: Not on file ??? Stress: Not on file Relationships ??? Social connections: Talks on phone: Not on file Gets together: Not on file Attends anglican service: Not on file Active member of club or organization: Not on file Attends meetings of clubs or organizations: Not on file Relationship status: Not on file ??? Intimate partner violence: Fear of current or ex partner: Not on file Emotionally abused: Not on file Physically abused: Not on file Forced sexual activity: Not on file Other Topics Concern ??? Not on file Social History Narrative ??? Not on file Vital Signs Vitals: 08/14/18 0909 BP: 115/71 BP Location: Left arm Patient Position: Sitting Pulse: 85 Weight: 102.1 kg (225 lb) Height: 172.7 cm (5' 8 ) Review of Systems Review of Systems Constitutional: Positive for activity change, appetite change, fever and unexpected weight change. HENT: Positive for hearing loss. Eyes: Positive for visual disturbance. Respiratory: Positive for shortness of breath. Cardiovascular: Positive for palpitations. Gastrointestinal: Positive for constipation, nausea and vomiting. Endocrine: Negative. Genitourinary: Positive for urgency. Musculoskeletal: Positive for gait problem and neck pain. Skin: Negative. Allergic/Immunologic: Positive for immunocompromised state. Neurological: Positive for weakness. Hematological: Negative. Psychiatric/Behavioral: Positive for sleep disturbance. All other systems reviewed and are negative. Breast: Negative. Physical Exam Ms. Gerber is well appearing and in no acute distress. Oropharynx and conjunctiva are clear. Heart is tachycardic, has regular rhythm. No murmurs, rubs or gallops. Lungs are clear to auscultation bilaterally. Abdomen is soft, non-tender, non-distended. Extremities have no rashes, lesion or edema. Neurologic: Pupils are equal, round, and reactive to light. Extra-ocular movements are intact without nystagmus, V1-V3 is intact to light touch. Face is symmetric with full strength of eye closure, buccal musculature and mouth closure. Hearing is intact bilaterally, palate elevates symetrically, neck muscles are strong. Tongue protrudes in the midline with full strength, amplitude and speed. There is no dysarthria. Motor: Normal tone throughout Neck flexion/neck extension: 5/5 Right Left Deltoid 5/5 5/5 Biceps 5/5 5/5 Triceps 5/5 5/5 Wrist extension 5/5 5/5 FDI 5/5 5/5 APB 5/5 5/5 Iliopsoas 5/5 5/5 Quadriceps 5/5 5/5 Hamstring 5/5 5/5 Tibialis anterior 5/5 5/5 Sensation: Sensation is intact to light touch throughout. Sensation is intact to pinprick in her arms. She hasa patch of decreased sensation to pinprick bilateral ankles. Proprioception intact at her toes. Vibration Right Left Toe 2/8 3.5/8 Ankle 6/8 3/8 Knee 6/8 5/8 Finger 8/8 8/8 Neurologic Exam Mental Status Oriented to person, place, and time. Speech: speech is normal Level of consciousness: alert Ms. Gerber appears to have some problems with short term memory. Gait, Coordination, and Reflexes Coordination Romberg: positive Finger to nose coordination: normal Heel to zuluaga coordination: normal Tremor Resting tremor: absent Intention tremor: absent Action tremor: left arm and right arm Reflexes Right brachioradialis: 3+ Left brachioradialis: 3+ Right biceps: 3+ Left biceps: 3+ Right triceps: 3+ Left triceps: 3+ Right patellar: 3+ Left patellar: 3+ Right achilles: 2+ Left achilles: 2+ Right plantar: normal Left plantar: normal Right Meyers: absent Left Meyers: absent Right ankle clonus present: 2 beat. Left ankle clonus present: 2 beat. Positive spread on both sides Positive crossed adductor reflex on the right Negative jaw jerk. Her gait is abnormal: She takes very small, narrow-based steps Diagnosis Plan 1. Drug-induced polyneuropathy (CMS/HCC) Vitamin B12 Vitamin E Immunofixation Immunofixation, urine ZENA qualitative with reflex to ZENA Quantitative IgA IgG IgM EMG/NCV -Procedure performed at: [facility]; Clinical Summary: 63 yo woman with breast and colon cancer, s/p oxaliplatin; on XARELTO p/w difficulties walking; Reason for referral or diagnostic question: please evaluate for peripheral neuropath... Neuromuscular Testing ([facility]) Immunofixation, urine 2. Malignant neoplasm of descending colon (CMS/HCC) Ambulatory referral to Neurology MRI Spine Cervical and Thoracic W WO Contrast 3. Malignant neoplasm of upper-inner quadrant of left breast in female, 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) Ambulatory referral to Neurology MRI Spine Cervical and Thoracic W WO Contrast 4. Gait difficulty Creatine kinase (CK), total Aldolase Assessment and Plan: In summary, Ms. Gerber is a 63-year-old woman with colon cancer and breast cancer, status post 6 cycles of FOLFOX, who presents with gait difficulties that started during chemotherapy. Her neurologicexamination shows full strength and bilateral hyperreflexia with pathological reflexes. She takes very small, narrow based steps. In addition, she has decreased sensation to vibration in her toes andmildly decreased pinprick sensation around her ankles. 1. Gait difficulty I think that the gait difficulty is multifactorial. Ms. Sweeney almost immediately becomes short of breath when walking, possibly due to the pulmonary emboli ca. 2 months ago. The hyperreflexia, pathological reflexes and urinary incontinence may point to structural changes of her spinal cord and/or brain. She received a brain MRI without contrast when she had an unusual reaction to oxaliplatin. The brain MRI showed white matter T2 hyperintensities and was otherwise unremarkable. To further evaluate for spinal cord lesions, I will obtain C and T-spine MRI with and without contrast. To evaluate for myopathy as underlying cause for her gait problems, I will obtain CK and aldolase. 2. Peripheral neuropathy Ms. Sweeney has also exam findings of mild sensory predominant peripheral neuropathy, as evidenced by decreased sensation to vibration and pinprick. Her reflexes are brisk, including ankle reflexes. To further evaluate the degree of her peripheral neuropathy, I will obtain EMG/nerve conduction studies. In addition, I will check for conditions that may worsen a peripheral neuropathy and obtain laboratory testing as indicated above. Return in about 2 months (around 10/14/2018). Future Appointments Date Time Provider Department Center 08/27/2018 11:00 AM FAST TRACK LAB [facility] 08/27/2018 11:30 AM Abbi Ventuar MD ONC [facility] Oncology 08/30/2018 1:30 PM [facility] [id number] N MRI [facility] Main IMG 02/12/2019 10:30 AM Trena Obando MD [place] CAM 6C NL Thank you for allowing me to participate in the care of your patient. I spent from 9:30 a.m. to 10:45 a.m. with the patient. More than 50% of the time was spent counseling about the disease and coordination of care. If you have any questions, feel free to contact me at . Sincerely, Trena Obando MD documented in this encounter Plan of Treatment Scheduled Orders Name Type Priority Associated Diagnoses Orde r Schedule Immunofixation, urine Lab Routine Drug-induced polyneuropathy (CMS/HCC) Expected: 08/14/2018, Expires: 08/15/2019 EMG/NCV -Procedure performed at: [facility] EMG [facility]; Clinical Summary: 63 yo woman with breast and colon cancer, s/p oxaliplatin; on XARELTO p/w difficulties walking; Reason for referral or diagnostic question: please evaluate for peripheral neuropath... Neurology Routine Drug-induced polyneuropathy (CMS/HCC) 1 Occurrences starting 08/14/2018 until 08/15/2019 Neuromuscular Testing ([facility]) Pathology and Cytology Routine Drug-induced polyneuropathy (CMS/HCC) Expected: 08/14/2018, Expires: 08/15/2019 documented as of this encounter Results * MRI Spine Cervical [...] stenosis or abnormal cord signal. Dictated by: Jordi Raseman, M.D. The radiology attending physician has personally [...] MD IMG MRI PROCEDURES Final Res ult * Aldolase (08/14/2018 11:45 AM CDT) Pathologist [facility] Aldolase 5.4 0.1 - 8.0 Units/L [facility] Blood specimen (specimen) 08/14/2018 11:45 AM CDT 08/14/2018 12:13 PM CDT Narrative [facility] - 08/15/2018 8:12 AM CDT Trena Obando MD LAB BLOOD ORDERABLES Final R esult [facility] Department [place] [address] * (ABNORMAL) Creatine kinase (CK), total (08/14/2018 11:45 AM CDT) CK <20(L) 30 - 200 Units/L [facility] Blood specimen (specimen) 08/14/2018 11:45 AM CDT 08/14/2018 12:13 PM CDT Narrative [facility] - 08/14/2018 1:09 PM CDT Trena Obando MD LAB BLOOD ORDERABLES Final R esult [facility] [place] [address] * (ABNORMAL) IgM (08/14/2018 11:45 AM CDT) Immunoglobulin M 38.0(L) 40.0 - 230.0 mg/dL [facility] Blood specimen (specimen) 08/14/2018 11:45 AM CDT 08/14/2018 12:13 PM CDT Narrative [facility] - 08/14/2018 1:03 PM CDT Trena Obando MD LAB BLOOD ORDERABLES Final R esult Performing Organization Address City/[facility]/ZIP Co de Phone Number [facility] [place] [address] * (ABNORMAL) IgG (08/14/2018 11:45 AM CDT) Immunoglobulin G 425.0(L) 700.0 - 1,600.0 mg/dL [facility] Blood specimen (specimen) 08/14/2018 11:45 AM CDT 08/14/2018 12:13 PM CDT Narrative [facility] - 08/14/2018 1:03 PM CDT Trena Obando MD LAB BLOOD ORDERABLES Final R esult [facility] [place] [address] * IgA (08/14/2018 11:45 AM CDT) Pathologist [facility] Immunoglobulin A 118.0 70.0 - 400.0 mg/dL [facility] Blood specimen (specimen) 08/14/2018 11:45 AM CDT 08/14/2018 12:13 PM CDT Narrative [facility] - 08/14/2018 1:03 PM CDT Trena Obando MD LAB BLOOD ORDERABLES Final R esult [facility] Department [place] [address] * ZENA qualitative with reflex to ZENA Quantitative (08/14/2018 11:45 AM CDT) [facility] ZENA Negative [facility] Comment: Interpretive Data Normal range for Zena Qualitative Antibody = Negative. 1. ??ZENA titers are performed on all positive qualitative results. 2. ??A significantly positive ZENA result is defined as a positive nuclear fluorescence at a titer of 1:80 or greater. 3. ??15% of normal people above age 65 have significantly positive ZENA results. ??5% or less of normal people age 65 or under have significantly positive ZENA results. Current interpretive data was last revised on 03. Blood specimen (specimen) 08/14/2018 11:45 AM CDT 08/14/2018 12:12 PM CDT Narrative [facility] - 08/15/2018 10:48 AM CDT Trena Obando MD LAB BLOOD ORDERABLES Final R esult Performing Organization Address City/[facility]/ZIP Co de Phone Number [facility] [place] [address] * Immunofixation (08/14/2018 11:45 AM CDT) [facility] Immunofixation No monoclonal protein detected. [facility] Blood specimen (specimen) 08/14/2018 11:45 AM CDT 08/14/2018 12:12 PM CDT Narrative [facility] - 08/16/2018 7:12 AM CDT Trena Obando MD LAB BLOOD ORDERABLES Final R esult Performing Organization Address [facility] de Phone Number [facility] [place] [address] * Vitamin E (08/14/2018 11:45 AM CDT) [facility] Tocopherol (Vit E) 6.2 5.5 - 17.0 mg/L [facility] Comment: ADDITIONAL INFORMATION This test was developed and its performance characteristics determined by [facility] in a manner consistent with CLIA requirements. This test has not been cleared or approved by the U.S. Food and Drug Administration. Test Performed by: [facility] [address] [place] [address] Blood specimen (specimen) 08/14/2018 11:45 AM CDT 08/14/2018 12:14 PM CDT Narrative [facility] - 08/19/2018 8:22 AM CDT Trena Obando MD LAB BLOOD ORDERABLES Final R esult Performing Organization Address [facility] [facility] de Phone Number [facility] [place] [address] * (ABNORMAL) Vitamin B12 (08/14/2018 11:45 AM CDT) [facility] Vitamin B12 >2,000(H) 230 - 1,250 pg/mL [facility] Blood specimen (specimen) 08/14/2018 11:45 AM CDT 08/14/2018 12:13 PM CDT Narrative [facility] - 08/14/2018 1:33 PM CDT us Trena Obando MD LAB BLOOD ORDERABLES Final R esult [facility] Department [place] [address] documented in this encounter Visit Diagnoses Diagnosis Drug-induced polyneuropathy (HCC)- Primary Polyneuropathy due to drugs Malignant neoplasm of descending colon (CMS/HCC) (HCC) Malignant neoplasm 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, estrogen receptor negative (HCC) Gait difficulty Abnormality of gait Drug-induced polyneuropathy (HCC) Polyneuropathy due to drugs Gait difficulty Abnormality of gait Malignant neoplasm of descending colon (CMS/HCC) (HCC) Malignant neoplasm 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, estrogen receptor negative (HCC) documented in this encounter Orders Outpatient Referral Count Last Ordered Date Fir st Ordered Date AMB REFERRAL TO NEUROLOGY 1 08/14/2018 documented in this encounter Care Teams Car Park Attendant Relationship Specialty Start Date End Date Ravi Smith MD PCP - General 11/04/17 09/27/21 Aft, Kianna Machado MD PhD [address] [place] [address] Surgeon Surgical Oncology 11/22/17 Santiago Gilbert MD [address] [place] [address] Arts Administrator Or Manager Gastroenterology 11/22/17 documented as of this encounter
--- OUTSIDE RECORDS SUMMARY | 2024-04-24 13:48 | XMS_ITS | Encounter Summary ---
Author Organization [facility] Address [address] [place] [address] Phone Care Team Providers Care Banquet Manager Name Role Phone Ravi Smith MD Primary Care Provider [phone] Aft, Kianna Machado MD PhD Unavailable [phone] Santiago Gilbert MD Unavailable [phone] Reason for Visit * Reason Comments Chemotherapy * Episode Based Medications (Routine) - Closed Specialty Diagnoses / Procedures Referred By Vijaya simpson Referred To Contact Oncology Diagnoses Malignant neoplasm of upper-inner quadrant of left breast in female, estrogen receptor negative (HCC) Encounter for person encountering health services Procedures [place] DOXORUBIC HCL 10 MG VL CHEMO [place] CYCLOPHOSPHAMIDE 100 MG INJ NJ INJECTION, PEGFILGRASTIM 6MG [place] PALONOSETRON HCL [place] FOSAPREPITANT INJECTION Dose-Dense AC: DOXOrubicin (ADRIAMYCIN) / Cyclophosphamide) with Abbi Chavez MD [address] [place] [address] Phone: tel: fax: [facility] [address] [place] [address] Phone: tel: fax: Referral ID Status Reason Start Date Expiration Date Visits Re quested Visits Authorized [id number] Closed 06/25/2018 09/02/2018 1 36 Encounter Details Date Type Department Care Team (Late st Contact Info) Description 08/12/2018 8:30 AM CDT Infusion [facility] [address] [place] [address] Encounter for person encountering health services (Primary Dx); Malignant neoplasm of upper-inner quadrant [...] file Legal 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 Gender Identity Not on file Sexual Orientation Not on file documented as of this encounter Last Filed Vital Signs Vital Sign Reading Time Taken Comments Blood Pressure 135/78 08/12/2018 8:46 AM CDT Pulse 105 08/12/2018 8:46 AM CDT Temperature 36.8 ??C (98.2 ??F) 08/12/2018 8:46 AM CD T Respiratory Rate 18 08/12/2018 8:46 AM CDT Oxygen Saturation 95% 08/12/2018 8:46 AM CDT Inhaled Oxygen Concentration - - Weight 102.2 kg (225 lb 6.4 oz) 08/12/2018 8:46 AM CDT Height - - Body Mass Index 34.27 08/11/2018 10:56 AM CDT documented in this encounter Nursing Notes * Kristin Walters - 08/12/2018 8:30 AM CDT Chemotherapy Nursing Note [facility] Aleah Gerber is a 63 y.o. female who presents for chemotherapy cycle 4, day(s) 1 of AC (D1561). Pre-treatment nursing assessment: No problems identified upon assessment. Reports fatigue and SOB on exertion. Patient met treatment parameters BP 135/78 Pulse 105 Temp 36.8 ??C (98.2 ??F) Resp 18 Wt 102.2 kg (225 lb 6.4 oz) SpO2 95% BMI 34.27 kg/m?? Pain Score: 0 Body surface area is 2.21 meters squared. Body mass index is 34.27 kg/m??. Chemotherapy: Aleah Gerber tolerated treatment well. Reports feeling better after treatment and IV fluids. Post blood return: Brisk IV access post infusion: NS and Heparin 100 units/ml Patient Education Learner: Patient and Family Readiness to learn: Acceptance Method: Explanation Treatment Education: Information/teaching given to patient including: signs and symptoms of infection, bleeding, adverse reaction(s), symptom control, and when to notify MD. Fall Prevention Education: Instructed patient to call for assistance. Pain Education: Patient instructed to contact nurse if pain should develop or if their current paintherapy becomes ineffective. Response: Verbalizes understanding Discharge Plan Discharge instructions given to patient. Future appointments given and reviewed with treatment plan. Discharge Mode: Ambulatory with walker Discharge Time: 1100 Accompanied by: Self and Family Discharged To: Home documented in this encounter Plan of Treatment Not on file documented as of this encounter Visit Diagnoses Diagnosis Encounter for person encountering health services- Primary Malignant neoplasm of upper-inner quadrant of left breast in female, estrogen receptor negative (HCC) documented in this encounter Administered Medications Inactive Administered Medications - up to 3 most recent administrations Medication Order MAR Action Action Date Dose Rate Site cyclophosphamide (CYTOXAN) 1,018 mg in sodium chloride 0.9% 250 mL IVPB 1,018 mg (rounded from 1,017 mg = 450 mg/m2 ? 2.26 m2 Treatment Plan BSA from Recorded weight), intravenous, at 601.8 mL/hr, Administer over 30 Minutes, Once, On Sat08/12/18 at 1030, For 1 dose, IrritantIndications:E ncounter for person encountering health services,Malignant neoplasm of upper-inner quadrant of left breast in female, estrogen receptor negative (HCC) New Bag 08/12/2018 9:58 AM CDT 1,018 mg 601.8 mL/hr dexamethasone (DECADRON) 10 mg in sodium chloride 0.9% 50 mL IVPB 10 mg, intravenous, at 153 mL/hr, Administer over 20 Minutes, Once, On Sat08/12/18 at 0930, For 1 doseIndications:Encount er for person encountering health services,Malignant neoplasm of upper-inner quadrant of left breast in female, estrogen receptor negative (HCC) New Bag 08/12/2018 8:58 AM CDT 10 mg 153 mL/hr DOXOrubicin (ADRIAMYCIN) 2 mg/mL IV syringe 101.8 mg 50.9 mL 101.8 mg (rounded from 101.7 mg = 45 mg/m2 ? 2.26 m2 Treatment Plan BSA from Recorded weight), intravenous, at 305.4 mL/hr, Administer over 10 Minutes, Once, On Sat08/12/18 at 1000, For 1 dose, DOXOrubicin is a vesicant. This agent is administered IV Push. The preferred IV Push method for a vesicant is administration through the side port of a freely flowing IV. Vesicant - for IV or intrarterial use only. Administer IV slowly into free-flowing IV fluidIndications:Encoun ter for person encountering health services,Malignant neoplasm of upper-inner quadrant of left breast in female, estrogen receptor negative (HCC) New Bag 08/12/2018 9:44 AM CDT 101.8 mg 305.4 mL/hr fosaprepitant (EMEND) 150 mg in sodium chloride 0.9% 150 mL IVPB 150 mg, intravenous, at 450 mL/hr, Administer over 20 Minutes, Once, On Sat08/12/18 at 0930, For 1 doseIndications:Encount er for person encountering health services,Malignant neoplasm of upper-inner quadrant of left breast in female, estrogen receptor negative (HCC) New Bag 08/12/2018 8:57 AM CDT 150 mg 450 mL/hr palonosetron injection 250 mcg 250 mcg (0.25 mg), intravenous, Once, On Sat08/12/18 at 0930, For 1 dose, For IV push, administer over 30 seconds.Indications:Enc ounter for person encountering health services,Malignant neoplasm of upper-inner quadrant of left breast in female, estrogen receptor negative (HCC) Given 08/12/2018 8:58 AM CDT 250 mcg pegfilgrastim (NEULASTA ON-BODY) injection 6 mg 6 mg, subcutaneous, Once, On Sat08/12/18 at 0930, For 1 dose, Attach to the patient as directed following the completion of chemotherapy - to be given OUTPATIENT only Refrigerate. ON-PRO deviceIndications:Encou nter for person encountering health services,Malignant neoplasm of upper-inner quadrant of left breast in female, estrogen receptor negative (HCC) Given 08/12/2018 10:35 AM CDT 6 mg Right Lower Abdomen sodium chloride 0.9% bolus 1,000 mL 1,000 mL, intravenous, at 666.7 mL/hr, Administer over 90 Minutes, Once, On Sat08/12/18 at 0930, For 1 doseIndications:Encount er for person encountering health services,Malignant neoplasm of upper-inner quadrant of left breast in female, estrogen receptor negative (HCC) Restarted 08/12/2018 9:58 AM CDT 666.7 mL/hr New Bag 08/12/2018 9:17 AM CDT 1,000 mL 666.7 mL/hr documented in this encounter Orders Nursing Count Last Ordered Date First Orde red Date ONCBCN PROVIDER COMMUNICATION 1 9 ONCBCN TREATMENT PARAMETERS 6 08/12/2018 Appointment Requests Count Last Ordered Date Fi rst Ordered Date ONCBCN RETURN CHEMO 2HRS 1 08/12/2018 documented in this encounter Care Teams Banquet Manager Relationship Specialty Start Date End Date Ravi Smith MD PCP - General 11/04/17 09/27/21 Aft, Kianna Machado MD PhD [address] [place] [address] Surgeon Surgical Oncology 11/22/17 Santiago Gilbert MD [address] [place] [address] Hand Clipper Gastroenterology 11/22/17 documented as of this encounter
--- OUTSIDE RECORDS SUMMARY | 2024-04-24 13:48 | XMS_ITS | Encounter Summary ---
Author Organization [facility] Address [address] [place] [address] Phone Care Team Providers Care Precision Honer Name Role Phone Ravi Smith MD Primary Care Provider [phone] Aft, Kianna Machado MD PhD Unavailable [phone] Santiago Gilbert MD Unavailable [phone] Encounter Details Date Type Department Care Team (Late st Contact Info) Description 08/11/2018 Orders Only [facility] [address] [facility] [address] [place] [id number] [place] Montoya, FRONT END DRUPAL DEVELOPER [address] [address] Social History Tobacco Use Types Packs/Day Years Used Date Smoking Tobacco: Former Cigarettes 2015 Smokeless Tobacco: Never Alcohol Use Standard Drinks/Week Comments Yes 0 (1 standard drink = 0.6 oz pur e alcohol) socially Comments No Sex and Gender Information Value Date Recorded Sex Assigned at Not on file 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
--- OUTSIDE RECORDS SUMMARY | 2024-04-24 13:48 | XMS_ITS | Encounter Summary ---
Author Organization [facility] Address [address] [place] [address] Care Team Providers Care Lean Manager Name Role Phone Ravi Smith MD Primary Care Provider [phone] Aft, Kianna Machado MD PhD Unavailable [phone] Santiago Gilbert MD Unavailable Reason for Visit * Diagnostic Lab (Routine) - Closed Specialty Diagnoses / Procedures Referred By Vijaya simpson Referred To Contact Lab Diagnoses Drug-induced polyneuropathy (HCC) Procedures Neuromuscular Testing ([facility]) Trena Obando MD Phone: tel: fax: Referral ID Status Reason Start Date Expiration Date Visits Re quested Visits Authorized [id number] Closed 08/14/2018 02/23/2020 1 1 Encounter Details Date Type Department Care Team (Late st Contact Info) Description 08/14/2018 11:45 AM CDT Lab [facility] [address] [place] [address] Trena Obando MD [address] [facility] [address] [place] [address] Drug-induced polyneuropathy (CMS/HCC); Gait difficulty Discharge Disposition: Discharge to home or self care Social History Tobacco Use Types Packs/Day Years Used Date Smoking Tobacco: Former Cigarettes 1 - 2016 Smokeless Tobacco: Never Alcohol Use Standard Drinks/Week Comments Yes 0 (1 standard drink = 0.6 oz pur e alcohol) socially Comments No Sex and Gender Information Value Date Recorded Sex Assigned at Not on file 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 Gender Identity Not on file Sexual Orientation Not on file documented as of this encounter Discharge Disposition Disposition Code Departure Means Destination Discharge to home or self care documented in this encounter Plan of Treatment Not on file documented as of this encounter Procedures Procedure Name Priority Date/Time Associated Diagnosis Comments BLOSSOM QUALITATIVE WITH REFLEX TO BLOSSOM QUANTITATIVE Routine 08/14/2018 11:45 AM CDT Drug-induced polyneuropathy (CMS/HCC) ALDOLASE Routine 08/14/2018 11:45 AM CDT Gait difficulty IMMUNOFIXATION ELECTROPHORESIS Routine 08/14/2018 11:45 AM CDT Drug-induced polyneuropathy (CMS/HCC) VITAMIN E Routine 08/14/2018 11:45 AM CDT Drug-induced polyneuropathy (CMS/HCC) IGA Routine 08/14/2018 11:45 AM CDT Drug-induced polyneuropathy (CMS/HCC) IGM Routine 08/14/2018 11:45 AM CDT Drug-induced polyneuropathy (CMS/HCC) IGG Routine 08/14/2018 11:45 AM CDT Drug-induced polyneuropathy (CMS/HCC) VITAMIN B12 Routine 08/14/2018 11:45 AM CDT Drug-induced polyneuropathy (CMS/HCC) CREATINE KINASE (CK), TOTAL Routine 08/14/2018 11:45 AM CDT Gait difficulty documented in this encounter Results * (ABNORMAL) Creatine kinase (CK), total (08/14/2018 11:45 AM CDT) CK <20(L) 30 - 200 Units/L [facility] Blood specimen (specimen) 08/14/2018 11:45 AM CDT 08/14/2018 12:13 PM CDT [facility] - 08/14/2018 1:09 PM CDT Trena Obando MD LAB BLOOD ORDERABLES Final R esult [facility] [place] [address] * Aldolase (08/14/2018 11:45 AM CDT) Aldolase 5.4 0.1 - 8.0 Units/L [facility] Blood specimen (specimen) 08/14/2018 11:45 AM CDT 08/14/2018 12:13 PM CDT Narrative [facility] - 08/15/2018 8:12 AM CDT Trena Obando MD LAB BLOOD ORDERABLES Final R esult Performing Organization Address [facility] [place] [address] * (ABNORMAL) Vitamin B12 (08/14/2018 11:45 AM CDT) Vitamin B12 >2,000(H) 230 - 1,250 pg/mL [facility] Blood specimen (specimen) 08/14/2018 11:45 AM CDT 08/14/2018 12:13 PM CDT Narrative [facility] - 08/14/2018 1:33 PM CDT Trena Obando MD LAB BLOOD ORDERABLES Final R esult [facility] [place] [address] * Vitamin E (08/14/2018 11:45 AM CDT) Pathologist [facility] Tocopherol (Vit E) 6.2 5.5 - 17.0 mg/L [facility] Comment: ADDITIONAL INFORMATION This test was developed and its performance characteristics determined by [facility] in a manner consistent with CLIA requirements. This test has not been cleared or approved by the U.S. Food and Drug Administration. Test Performed by: [facility] [address] [place] [address] Blood specimen (specimen) 08/14/2018 11:45 AM CDT 08/14/2018 12:14 PM CDT Narrative [facility] - 08/19/2018 8:22 AM CDT Trena Obando MD LAB BLOOD ORDERABLES Final R esult Performing Organization Address City/[facility]/ZIP Co de Phone Number [facility] [place] [address] * Immunofixation (08/14/2018 11:45 AM CDT) [facility] Immunofixation No monoclonal protein detected. [facility] Blood specimen (specimen) 08/14/2018 11:45 AM CDT 08/14/2018 12:12 PM CDT Narrative [facility] - 08/16/2018 7:12 AM CDT Trena Obando MD LAB BLOOD ORDERABLES Final R esult [facility] [place] [address] * BLOSSOM qualitative with reflex to BLOSSOM Quantitative (08/14/2018 11:45 AM CDT) [facility] BLOSSOM Negative [facility] Comment: Interpretive Data Normal range for Blossom Qualitative Antibody = Negative. 1. ??BLOSSOM titers are performed on all positive qualitative results. 2. ??A significantly positive BLOSSOM result is defined as a positive nuclear fluorescence at a titer of 1:80 or greater. 3. ??15% of normal people above age 65 have significantly positive BLOSSOM results. ??5% or less of normal people age 65 or under have significantly positive BLOSSOM results. Current interpretive data was last revised on 03. Blood specimen (specimen) 08/14/2018 11:45 AM CDT 08/14/2018 12:12 PM CDT Narrative [facility] - 08/15/2018 10:48 AM CDT Trena Obando MD LAB BLOOD ORDERABLES Final R esult Performing Organization Address [facility] Co de Phone Number [facility] Department [place] [address] * IgA (08/14/2018 11:45 AM CDT) Immunoglobulin A 118.0 70.0 - 400.0 mg/dL [facility] Blood specimen (specimen) 08/14/2018 11:45 AM CDT 08/14/2018 12:13 PM CDT [facility] 08/14/2018 1:03 PM CDT Trena Obando MD LAB BLOOD ORDERABLES Final R esult Performing Organization Address City/[facility] Co de Phone Number [facility] [place] [address] * (ABNORMAL) IgG (08/14/2018 11:45 AM CDT) Immunoglobulin G 425.0(L) 700.0 - 1,600.0 mg/dL [facility] Blood specimen (specimen) 08/14/2018 11:45 AM CDT 08/14/2018 12:13 PM CDT [facility] - 08/14/2018 1:03 PM CDT Trena Obando MD LAB BLOOD ORDERABLES Final R [facility] Performing Organization Address City/[facility] Co de Phone Number [facility] [place] [address] * (ABNORMAL) IgM (08/14/2018 11:45 AM CDT) Immunoglobulin M 38.0(L) 40.0 - 230.0 mg/dL [facility] Blood specimen (specimen) 08/14/2018 11:45 AM CDT 08/14/2018 12:13 PM CDT Narrative [facility] - 08/14/2018 1:03 PM CDT Trena Obando MD LAB BLOOD ORDERABLES Final R [facility] Performing Organization Address City/[facility] Co de Phone Number 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
--- OUTSIDE RECORDS SUMMARY | 2024-04-24 13:48 | XMS_ITS | Encounter Summary ---
Author Organization [facility] Address [address] [place] [address] Phone Care Team Providers Care Harness Inspector Name Role Phone Ravi Smith MD Primary Care Provider [phone] Aft, Kianna Machado MD PhD Unavailable [phone] Santiago Gilbert MD Unavailable [phone] Encounter Details Date Type Department Care Team (Late st Contact Info) Description 08/08/2018 Telephone 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 Follow up on results. DB 08/07/18 Called and spoke to Aleah. Advised that echo was wnl. LVEF was 65%. Anything over 54% is normal. Advised pt that Dr. Ventura feels that SOC is due to deconditioning. Dr. Ventura said if pt is feeling better than she would resume the chemo at the 75% dose but if she is not feeling better she could decrease to 50%. Aleah said she feels as bad as she did yesterday and for the week prior to that. She said she not ready to proceed with chemo. Will let her recover over the weekend and call her on 08/11/18 to see how she is feeling and how she would like to proceed. DB 08/08/18 Aleah contacted me and requested to schedule last cycle of AC at 75% dose on 08/12/18. Appts for lab and tx scheduled. Also schedule appt for her to return in 2 weeks post tx to assess for side effects. DB documented in this encounter Plan of Treatment Not on file documented as of this encounter Visit Diagnoses Not on filedocumented in this encounter Care Teams Harness Inspector Relationship Specialty Start Date End Date Ravi Smith MD PCP - General 11/04/17 09/27/21 Aft, Kianna Machado MD PhD [address] [place] [address] Surgeon Surgical Oncology 11/22/17 Santiago Gilbert MD [address] [place] [address] Residential Sales Executive Gastroenterology 11/22/17 documented as of this encounter
--- OUTSIDE RECORDS SUMMARY | 2024-04-24 13:48 | XMS_ITS | Encounter Summary ---
Author Organization [facility] Healthcare Address [address] [place] [address] Care Team Providers Care Therapist Occupational Name Role Phone Ravi Smith MD Primary Care Provider [phone] Aft, Kianna Machado MD PhD Unavailable [phone] Santiago Gilbert MD Unavailable [phone] Encounter Details Date Type Department Care Team (Late st Contact Info) Description 08/11/2018 8:00 AM CDT Ancillary Procedure [facility] Outside Films Social History Tobacco Use Types Packs/Day Years Used Date Smoking Tobacco: Former Cigarettes 2015 Smokeless Tobacco: Never Alcohol Use Standard Drinks/Week Comments Yes 0 (1 standard drink = 0.6 oz pur e alcohol) socially Comments No Sex and Gender Information Value Date Recorded Sex Assigned at Not on file 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 us Not In File Miscellaneous IMG MAMMO PROCEDURES F inal Result [facility] documented in this encounter Visit Diagnoses Not on filedocumented in this encounter Care Teams Therapist Occupational Relationship Specialty Start Date End Date Ravi Smith MD PCP - General 11/04/17 09/27/21 Aft, Kianna Machado MD PhD [address] [place] [address] Surgeon Surgical Oncology 11/22/17 Santiago Gilbert MD [address] [place] [address] Railcar Carpenter Gastroenterology 11/22/17 documented as of this encounter
--- OUTSIDE RECORDS SUMMARY | 2024-04-24 13:49 | XMS_ITS | Encounter Summary ---
Author Organization [facility] Address [address] [place] [address] Phone Care Team Providers Care Balloon Design Printer Name Role Phone Ravi Smith MD Primary Care Provider [phone] Aft, Kianna Machado MD PhD Unavailable [phone] Santiago Gilbert MD Unavailable [phone] Encounter Details Date Type Department Care Team (Late st Contact Info) Description 05/28/2018 Orders Only [facility] [address] [place] [address] Abbi Ventura MD [address] [place] [address] Other acute pulmonary embolism without acute cor [...] file 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 42 tablet 05/28/2018 05/28/2018 documented in this encounter Plan of Treatment Not on file documented as of this encounter Visit Diagnoses Diagnosis Other acute pulmonary embolism without acute cor pulmonale (HCC)- Primary documented in this encounter Discontinued Medications Medication Sig Discontinue Reason Start Date End Da te enoxaparin (LOVENOX) 100 mg/mL syringe Inject 1 mL (100 mg total) under the skin every 12 (twelve) hours. Other 05/28/2018 05/28/2018 documented as of this encounter Care Teams Balloon Design Printer Relationship Specialty Start Date End Date Ravi Smith MD PCP - General 11/04/17 09/27/21 Aft, Kianna Machado MD PhD [address] [place] [address] Surgeon Surgical Oncology 11/22/17 Santiago Gilbert MD [address] [place] [address] Supervisor Money Room Gastroenterology 11/22/17 documented as of this encounter
--- OUTSIDE RECORDS SUMMARY | 2024-04-24 13:49 | XMS_ITS | Encounter Summary ---
Author Organization [facility] Address [address] [place] [address] Phone Care Team Providers Care Kennel Assistant Name Role Phone Ravi Smith MD Primary Care Provider [phone] Kianna Bunch MD PhD Unavailable [phone] Santiago Gilbert MD Unavailable [phone] Encounter Details Date Type Department Care Team (Late st Contact Info) Description 06/12/2018 Orders Only [facility] On[facility] [address] [place] [address] Fatemeh Zarate, LYDIA Social History Tobacco Use Types Packs/Day Years Used Date Smoking Tobacco: Former Cigarettes 2015 Smokeless Tobacco: Never Alcohol Use Standard Drinks/Week Comments Yes 0 (1 standard drink = 0.6 oz pur e alcohol) socially Comments No Sex and Gender Information Value Date Recorded Sex Assigned at Not on file Legal Sex Female 1:06 AM LOAD DISPATCHER LOCAL Gender Identity Not on file Sexual Orientation Not on file documented as of this encounter Plan of Treatment Not on file documented as of this encounter Visit Diagnoses Not on filedocumented in this encounter Care Teams Kennel Assistant Relationship Specialty Start Date End Date Ravi Smith MD PCP - General 11/04/17 09/27/21 Kianna Bunch MD PhD [address] [place] [address] Surgeon Surgical Oncology 11/22/17 Santiago Gilbert MD [address] [place] [address] Software Project Engineer Gastroenterology 11/22/17 documented as of this encounter
--- OUTSIDE RECORDS SUMMARY | 2024-04-24 13:49 | XMS_ITS | Encounter Summary ---
Author Organization [facility] Address [address] [place] [address] Phone Care Team Providers Care Acid Operator Name Role Phone Ravi Smith MD Primary Care Provider [phone] AileentKianna MD PhD Unavailable [phone] Santiago Gilbert MD Unavailable [phone] Encounter Details Date Type Department Care Team (Late st Contact Info) Description 06/13/2018 Orders Only [facility] Oncology [address] [place] [address] Fatemeh Zarate RN Social History Tobacco Use Types Packs/Day Years Used Date Smoking Tobacco: Former Cigarettes 2015 Smokeless Tobacco: Never Alcohol Use Standard Drinks/Week Comments Yes 0 (1 standard drink = 0.6 oz pur e alcohol) socially Comments No Sex and Gender Information Value Date Recorded Sex Assigned at Not on file Legal Sex Female 1: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 30 tablet 6 06/13/2018 04/01/2019 documented in this encounter Plan of Treatment Not on file documented as of this encounter Visit Diagnoses Not on filedocumented in this encounter Care Teams Acid Operator Relationship Specialty Start Date End Date Ravi Smith MD PCP - General 11/04/17 09/27/21 Aft, Kianna Machado MD PhD [address] [place] [address] Surgeon Surgical Oncology 11/22/17 Santiago Gilbert MD [address] [place] [address] Plasticator Gastroenterology 11/22/17 documented as of this encounter
--- OUTSIDE RECORDS SUMMARY | 2024-04-24 13:49 | XMS_ITS | Encounter Summary ---
Author Organization [facility] Address [address] [place] [address] Phone Care Team Providers Care Veterinary Attendant Name Role Phone Ravi Smith MD Primary Care Provider [phone] Aft, Kianna Machado MD PhD Unavailable Santiago Gilbert MD Unavailable [phone] Encounter Details Date Type Department Care Team (Late st Contact Info) Description 05/28/2018 Orders Only [facility] Oncology [address] [place] [address] Abbi Ventura MD [address] [facility] [address] [place] [address] Other acute pulmonary embolism without acute cor [...] on file Legal Sex Female 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 60 Syringe 6 05/28/2018 05/28/2018 documented in this encounter Plan of Treatment Not on file documented as of this encounter Visit Diagnoses Diagnosis Other acute pulmonary embolism without acute cor pulmonale (HCC)- Primary documented in this encounter Care Teams Veterinary Attendant Relationship Specialty Start Date End Date Ravi Smith MD PCP - General 11/04/17 09/27/21 Aft, Kianna Machado MD PhD [address] [place] [address] Surgeon Surgical Oncology 11/22/17 Santiago Gilbert MD [address] [place] [address] Rehab Rn Gastroenterology 11/22/17 documented as of this encounter
--- OUTSIDE RECORDS SUMMARY | 2024-04-24 13:49 | XMS_ITS | Encounter Summary ---
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 Ventura to discuss TC Procedures ONCBCN CLINIC APPOINTMENT REQUEST RETURN [place] Montoya, KAM [address] [place] [address] Phone: tel: fax: Abbi Ventura MD [address] [place] [address] Phone: tel: fax: Referral ID Status Reason Start Date Expiration Date V isits Requested Visits Authorized [id number] Closed Specialty Services Required 06/04/2018 05/05/2019 99 [phone] Encounter Details Date Type Department Care Team (Late st Contact Info) Description 07/23/2018 12:00 PM CDT Office Visit [facility] Oncology [address] [place] [address] Jamaica Montoya, KAM [address] [place] [address] [address] Antineoplastic chemotherapy induced anemia (Primary Dx); Encounter for person encountering health services; Malignant [...] on file 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 Female 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 Gender Identity Not on file Sexual Orientation Not on file documented as of this encounter Last Filed Vital Signs Vital Sign Reading Time Taken Comments Blood Pressure 145/77 07/23/2018 12:18 PM CDT Pulse 118 07/23/2018 12:18 PM CDT Temperature 36.7 ??C (98 ??F) 07/23/2018 12:18 PM CDT Respiratory Rate 16 07/23/2018 12:18 PM CDT Oxygen Saturation 97% 07/23/2018 12:18 PM CDT Inhaled Oxygen Concentration - - Weight 105.2 kg (232 lb) 07/23/2018 12:18 PM CDT Height 172.7 cm (5' 8 ) 07/23/2018 12:18 PM CDT Body Mass Index 35.28 07/23/2018 12:18 PM CDT documented in this encounter Progress Notes * Jamaica Montoya, KAM - 07/23/2018 12:00 PM CDT Patient Identifying Data: Aleah Gerber is a 62 y.o. female seen in followup today DIAGNOSIS: 1. 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 LogMeIn My risk showed no mutation in MLH 1 or PMS2 suggesting that the patient does not have Grullon syndrome. 4. Allergic reaction to oxaliplatin during cycle 6 of FOLFOX 5. DYPD genotype normal. 6. DVT/PE diagnosed 1/23/19 TREATMENT HISTORY: 1.In March 2017 she had [...] History Patient here for consideration of cycle 3 of A/C. Since her last treatment she reports fatigue for at least 8 days after treatment. She had daily nausea x 5 days after treatment and managed with compazine. She has larger stools causing discomfort the day after treatment and is managing by drinking juice. She had diarrhea with mucous x 3 days on days 7 through day 10. Diarrhea controlled with Imodium. She also noted 1-2 days of a brownish bloody drainage on toilet paper after wiping her vagina. Continues with mucositis but it is no worse. She is performing salt water gargles 3-4 times per day.She uses MMW PRN. No new complaints. Review of Systems Review of systems positive for symptoms as per interval history. All other review of systems negative. Objective Vitals: Vitals BP 145/77 (BP Location: Right arm) Pulse 118 Temp 36.7 ??C (98 ??F) (Oral) Resp 16 Ht 172.7 cm (5' 8 ) Wt 105.2 kg (232 lb) SpO2 97% BMI 35.28 kg/m?? PERFORMANCE STATUS: ECOG 1 SKIN: Normal [...] exam not done. Extraocular movements are intact. There is no nystagmus. LYMPH NODES: The patient has no cervical, supraclavicular, axillary, or inguinal adenopathy that ispalpable. BREAST: Right: No dominant masses. No nipple or areolar changes. Left: s/p partial mastectomy with healed surgery scar. No dominant masses. No nipple or areolar changes. When I squeeze her left breast, I am not getting any drainage. Lab/Radiology/Diagnostic Review: Hematology Lab History Some values may be hidden. Unless noted otherwise, only the newest values recorded on each date aredisplayed. Labs - Hematology Latest Ref Range 06/04/18 06/25/18 07/09/18 07/23/18 WBC 3.8 - 9.9 K/cumm 6.3 7.1 8.6 10.0 (A) Total Hb, POC 11.9 - 15.5 g/dL 10.4 (A) 10.1 (A) 9.8 (A) 8.6 (A) Hct 35.6 - 45.5 % 30.4 (A) 31.3 (A) 29.7 (A) 25.3 (A) Plt 150 - 400 K/cumm 118 (A) 181 143 (A) 115 (A) Neutrophil abs 1.7 - 6.5 K/cumm 3.8 5.2 6.2 (A) Abnormal value Lab Results Component Value Date SODIUM 141 07/23/2018 POTASSIUM 3.1 (L) 07/23/2018 CO2 27 07/23/2018 BUNSER 11 07/23/2018 GLUCOSE 285 (H) 07/23/2018 CREATININE 1.00 07/23/2018 CALCIUM 9.1 07/23/2018 CHLORIDE 102 07/23/2018 ALBUMIN 3.9 07/23/2018 AST 27 07/23/2018 ALT 18 07/23/2018 ALKPHOS 83 07/23/2018 BILITOT 0.3 07/23/2018 PROT 6.4 (L) 07/23/2018 ANIONGAP 12 07/23/2018 Tumor Marker History Some values may be hidden. Unless noted otherwise, only the newest values recorded on each date aredisplayed. Tumor Markers Latest Ref Range 03/19/18 04/09/18 05/07/18 05/21/18 CEA <=5.0 ng/mL 4.8 4.2 5.0 4.0 Comments are available for some flowsheets but are not being displayed. Recent labs, radiology and pathology reviewed in [facility] ASSESSMENT: T4bN0 disease, Stage IIC colon adenocarcinoma: Completed adjuvant chemotherapy. 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 Tolerating A/C well exceptfor grade 2 fatigue and mucositis which is now at grade 1 and grade 1 anemia. Given the 8 days of fatigue patient experienced with cycle 2 of AC. She would like to dose reduce cycle 3 of AC by 25%. MyRisk panel is positive for BRCA2 mutation, and VUS in BRIP1 and NBN: patient wants to hold off prophylactic mastectomy at this point. Prophylactic BSO will be considered in the future. Depression/anxiety: follow up with Dr. 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 Hypokalemia: on oral replacement. Monitor PLAN: Start Cycle 3 of AC at 25% reduced dose for grade 2 fatigue. RTC in 2 weeks for office visit before starting cycle 4 of A/C. Planned to have left breast re-excision surgery after 4 cycles of AC. She as further breast mammogram/US with office visit schedule with Dr. Bunch on 08/11/2018. F/u PCP regarding diabetes. GONZÁLEZ Ly-C Nurse Practitioner for Dr. Abbi Ventura Medical Oncology [facility] documented in this encounter Plan of Treatment Not on file documented as of this encounter Results * (ABNORMAL) Comprehensive metabolic panel (08/06/2018 9:08 AM CDT) Sodium 145 135 - 145 mmol/L [facility] Potassium, pl 3.5 3.3 - 4.9 mmol/L [facility] Chloride 106 97 - 110 mmol/L [facility] CO2 25 22 - 32 mmol/L [facility] Anion gap 14 2 - 15 mmol/L [facility] BUN 16 8 - 25 mg/dL [facility] Creatinine 1.22(H) 0.60 - 1.10 mg/dL [facility] Glucose 190 70 - 199 mg/dL [facility] Comment: Interpretive Data Fasting glucose >/= [...] 2017. Calcium 10.1 8.5 - 10.3 mg/dL [facility] Bilirubin, total 0.5 0.1 - 1.2 mg/dL [facility] Protein, pl 6.7 6.5 - 8.5 g/dL [facility] Albumin 4.2 3.5 - 5.0 g/dL [facility] Alk phos 103 40 - 130 Units/L [facility] ALT 19 7 - 45 Units/L [facility] AST 25 10 - 45 Units/L [facility] Blood specimen (specimen) 08/06/2018 9:08 AM CDT 08/06/2018 9:17 AM CDT Narrative [facility] - 08/06/2018 9:42 AM CDT us Jamaica Montoya LAY OUT WORKER LAB BLOOD ORDERABLES Final Result [facility] [place] [address] * (ABNORMAL) CBC with auto differential (08/06/2018 9:08 AM CDT) WBC 13.8(H) 3.8 - 9.9 K/cumm [facility] Hgb 8.8(L) 11.9 - 15.5 g/dL [facility] Hct 26.2(L) 35.6 - 45.5 % [facility] Plt 97(L) 150 - 400 K/cumm [facility] MPV 10.0 9.1 - 12.3 fL [facility] RBC 2.66(L) 3.90 - 5.20 M/cumm [facility] MCV 98.5(H) 81.3 - 96.4 fL [facility] MCH 33.1 27.1 - 33.3 pg [facility] MCHC 33.6 32.3 - 35.7 g/dL [facility] RDW CV 14.9 11.1 - 14.9 % [facility] RDW SD 50.5(H) 35.7 - 48.1 fL [facility] NRBC abs 0.05(H) 0.00 - 0.01 K/cumm [facility] Blood specimen (specimen) 08/06/2018 9:08 AM CDT 08/06/2018 9:17 AM CDT Narrative [facility] - 08/06/2018 9:21 AM CDT Jamaica Montoya LAY OUT WORKER LAB BLOOD ORDERABLES Final Result [facility] Department [place] [address] documented in this encounter Visit Diagnoses Diagnosis Antineoplastic chemotherapy induced anemia- Primary Encounter for person encountering health services Malignant neoplasm of upper-inner quadrant of left breast in female, estrogen receptor negative (HCC) Encounter for person encountering health services Malignant neoplasm of upper-inner quadrant of left breast in female, estrogen receptor negative (HCC) documented in this encounter Orders Appointment Requests Count Last Ordered Date Fi rst Ordered Date [facility] CLINIC APPOINTMENT REQUEST 2 019 07/23/2018 [facility] LAB APPOINTMENT 1 08/06/2018 documented in this encounter Care Teams Retail Custodial Associate Relationship Specialty Start Date End Date Ravi Smith MD PCP - General 11/04/17 09/27/21 Aft, Kianna Machado MD PhD [address] [place], [place] [address] Surgeon Surgical Oncology 11/22/17 Santiago Gilbert MD [address] [place] [address] Chemical Laboratory Assistant Gastroenterology 11/22/17 documented as of this encounter
--- OUTSIDE RECORDS SUMMARY | 2024-04-24 13:49 | XMS_ITS | Encounter Summary ---
Author Organization [facility] Address [address] [place] [address] Phone Care Team Providers Care Sonar Watchstander Name Role Phone Ravi Smith MD Primary Care Provider [phone] Aft, Kianna Machado MD PhD Unavailable [phone] Santiago Gilbert MD Unavailable [phone] Encounter Details Date Type Department Care Team (Late st Contact Info) Description 05/28/2018 Orders Only [facility] Oncology [address] [place] [address] Abbi Ventura MD 10 [facility] [address] [place] [address] Malignant neoplasm of upper-inner quadrant of left breast in female, 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) (Primary Dx); Other acute pulmonary embolism without acute cor pulmonale (CMS/HCC) Social History Tobacco Use Types Packs/Day Years Used Date Smoking Tobacco: Former Cigarettes 2015 Smokeless Tobacco: Never Alcohol Use Standard Drinks/Week Comments Yes 0 (1 standard drink = 0.6 oz pur e alcohol) socially Comments No Sex and Gender Information Value Date Recorded Sex Assigned at Not on file Legal Sex Female 1:06 AM 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 28 tablet 05/28/2018 06/25/2018 documented in this encounter Plan of Treatment Not on file documented as of this encounter Results * (ABNORMAL) Comprehensive metabolic panel (06/04/2018 8:30 AM TRAMPOLINE TEAM COACH) Sodium 137 135 - 145 mmol/L [facility] Potassium, pl 3.4 3.3 - 4.9 mmol/L [facility] Chloride 101 97 - 110 mmol/L [facility] CO2 22 22 - 32 mmol/L [facility] Anion gap 14 2 - 15 mmol/L [facility] BUN 18 8 - 25 mg/dL [facility] Creatinine 0.88 0.60 - 1.10 mg/dL [facility] Glucose 385(H) 70 - 199 mg/dL [facility] Comment: Interpretive Data Fasting glucose >/= [...] 2017. Calcium 9.6 8.5 - 10.3 mg/dL [facility] Bilirubin, total 0.5 0.1 - 1.2 mg/dL [facility] Protein, pl 6.8 6.5 - 8.5 g/dL [facility] Albumin 4.0 3.5 - 5.0 g/dL [facility] Alk phos 98 40 - 130 Units/L [facility] ALT 47(H) 7 - 45 Units/L [facility] AST 46(H) 10 - 45 Units/L [facility] Blood specimen (specimen) 06/04/2018 8:30 AM TRAMPOLINE TEAM COACH 06/04/2018 8:35 AM TRAMPOLINE TEAM COACH Narrative [facility] - 06/04/2018 8:59 AM TRAMPOLINE TEAM COACH us Abbi Ventura MD LAB BLOOD ORDERABLES Final Resul t Performing Organization Address City/[facility]/ZIP Co de Phone Number [facility] Department [place] [address] * (ABNORMAL) CBC with auto differential (06/04/2018 8:30 AM TRAMPOLINE TEAM COACH) WBC 6.3 3.8 - 9.9 K/cumm [facility] Hgb 10.4(L) 11.9 - 15.5 g/dL [facility] Hct 30.4(L) 35.6 - 45.5 % [facility] Plt 118(L) 150 - 400 K/cumm [facility] MPV 9.4 9.1 - 12.3 fL [facility] RBC 2.99(L) 3.90 - 5.20 M/cumm [facility] MCV 101.7(H) 81.3 - 96.4 fL [facility] MCH 34.8(H) 27.1 - 33.3 pg [facility] MCHC 34.2 32.3 - 35.7 g/dL [facility] RDW CV 16.7(H) 11.1 - 14.9 % [facility] RDW SD 61.8(H) 35.7 - 48.1 fL [facility] NRBC abs 0.03(H) 0.00 - 0.01 K/cumm [facility] Blood specimen (specimen) 06/04/2018 8:30 AM TRAMPOLINE TEAM COACH 06/04/2018 8:35 AM TRAMPOLINE TEAM COACH Narrative [facility] - 06/04/2018 8:38 AM TRAMPOLINE TEAM COACH us Abbi Ventura MD LAB BLOOD ORDERABLES Final Resul t Performing Organization Address [facility] Co de Phone Number [facility] Department [place] [address] documented in this encounter Visit Diagnoses Diagnosis Malignant neoplasm of upper-inner quadrant of left breast in female, estrogen receptor negative (HCC)- Primary Other acute pulmonary embolism without acute cor pulmonale (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) Malignant neoplasm 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, estrogen receptor negative (HCC) documented in this encounter Discontinued Medications Medication Sig Discontinue Reason Start Date End Da te rivaroxaban (XARELTO) 15 mg tabletIndications:bilate ral PE's Take 1 tablet (15 mg total) by mouth 2 (two) times a day for 21 days. Reorder 05/28/2018 05/28/2018 documented as of this encounter Care Teams Sonar Watchstander Relationship Specialty Start Date End Date Ravi Smith MD PCP - General 11/04/17 09/27/21 Aft, Kianna Machado MD PhD [address] [place] [address] Surgeon Surgical Oncology 11/22/17 Santiago Gilbert MD [address] [place] [address] Brusher Hand Gastroenterology 11/22/17 documented as of this encounter
--- OUTSIDE RECORDS SUMMARY | 2024-04-24 13:49 | XMS_ITS | Encounter Summary ---
Author Organization [facility] Address [address] [place] [address] Phone Care Team Providers Care Wood Mill Supervisor Name Role Phone Ravi Smith MD Primary Care Provider [phone] Aft, Kianna Machado MD PhD Unavailable [phone] Santiago Gilbert MD Unavailable [phone] Encounter Details Date Type Department Care Team (Late st Contact Info) Description 07/17/2018 Orders Only [facility] Oncology [address] [place] [address] Abbi Ventura MD 10 [facility] [address] [place] [address] Social History Tobacco Use Types Packs/Day Years Used Date Smoking Tobacco: Former Cigarettes 2015 Smokeless Tobacco: Never Alcohol Use Standard Drinks/Week Comments Yes 0 (1 standard drink = 0.6 oz pur e alcohol) socially Comments No Sex and Gender Information Value Date Recorded Sex Assigned at Not on file Legal Sex Female 1:06 AM DEVELOPMENT TEAM LEAD Gender Identity Not on file Sexual Orientation Not on file documented as of this encounter Plan of Treatment Not on file documented as of this encounter Visit Diagnoses Not on filedocumented in this encounter Care Teams Wood Mill Supervisor Relationship Specialty Start Date End Date Ravi Smith MD PCP - General 11/04/17 09/27/21 Aft, Kianna Machado MD PhD [address] [place] [address] Surgeon Surgical Oncology 11/22/17 Santiago Gilbert MD [address] [place] [address] Design Engineer Agricultural Equipment Gastroenterology 11/22/17 documented as of this encounter
--- OUTSIDE RECORDS SUMMARY | 2024-04-24 13:49 | XMS_ITS | Encounter Summary ---
Author Organization [facility] Address [address] [place] [address] Phone Care Team Providers Care Hvac Technician Residential Name Role Phone Ravi Smith MD Primary Care Provider [phone] Aft, Kianna Machado MD PhD Unavailable [phone] Santiago Gilbert MD Unavailable [phone] Encounter Details Date Type Department Care Team (Late st Contact Info) Description 05/28/2018 Documentation [facility] Oncology [address] [place] [address] Fatemeh Zarate, RN Social History Tobacco Use Types Packs/Day Years Used Date Smoking Tobacco: Former Cigarettes 2015 Smokeless Tobacco: Never Alcohol Use Standard Drinks/Week Comments Yes 0 (1 standard drink = 0.6 oz pur e alcohol) socially Comments No Sex and Gender Information Value Date Recorded Sex Assigned at Not on file Legal Sex Female 1:06 AM WOOL BATTING WORKER Gender Identity Not on file Sexual Orientation Not on file documented as of this encounter Nursing Notes * Fatemeh Zarate RN - 05/28/2018 2:58 PM CST 05/28/18 CT scan completed revealed PE. Pt was asked to come into clinic to check VS and walking O2 sat. T- 97.6, b/p 101/67. HR at rest was 112 and O2 sat 99. Pt was SOB but oxygen sats never droppedbelow 98%. HR did increase to 142 while walking but at rest improved to baseline. Discussed with pt. Lovenox copay was $609.76. Xarelto 21 day supply 15mg bid copay was $219.00. Pt was given (samples) 7 day supply of xarelto 15mg bid. Script for 14 more days faxed to pt pharmacy. She was given a copay card for xarelto that she will apply for. She will let me know if any issues obtainging med. Will need to call in 30 day supply of xarelto 20mg once daily approx 06/16/18 to pt local pharmacy. DB BATTING WORKER documented in this encounter Plan of Treatment Not on file documented as of this encounter Visit Diagnoses Not on filedocumented in this encounter Care Teams Hvac Technician Residential Relationship Specialty Start Date End Date Ravi Smith MD PCP - General 11/04/17 09/27/21 Aft, Kianna Machado MD PhD [address] [place] [address] Surgeon Surgical Oncology 11/22/17 Santiago Gilbert MD [address] [place] [address] [employer] Gastroenterology 11/22/17 documented as of this encounter
--- OUTSIDE RECORDS SUMMARY | 2024-04-24 13:49 | XMS_ITS | Encounter Summary ---
Author Organization [facility] Address [address] [place] [address] Phone Care Team Providers Care Electronics Utility Worker Name Role Phone Ravi Smith MD Primary Care Provider [phone] Aft, Kianna Machado MD PhD Unavailable [phone] Santiago Gilbert MD Unavailable [phone] Reason for Visit * Episode Based Medications (Routine) - Closed Specialty Diagnoses / Procedures Referred By Vijaya t Referred To Contact Oncology Diagnoses Malignant neoplasm of upper-inner quadrant of left breast in female, estrogen receptor negative (HCC) Encounter for person encountering health services Procedures VA DOXORUBIC HCL 10 MG VL CHEMO VA CYCLOPHOSPHAMIDE 100 MG INJ VA INJECTION, PEGFILGRASTIM 6MG VA PALONOSETRON HCL VA FOSAPREPITANT INJECTION Dose-Dense AC: DOXOrubicin (ADRIAMYCIN) / Cyclophosphamide) with Abbi Chavez MD [address] [facility] [address] [place] [address] Phone: tel: fax: [facility] [address] [place] [address] Phone: tel: fax: Referral ID Status Reason Start Date Expiration Date Visits Re quested Visits Authorized [id number] Closed 06/25/2018 09/02/2018 1 36 Encounter Details Date Type Department Care Team (Latest Contact Info) Description 07/09/2018 11:00 AM PERINATAL TECHNICIAN Clinical Support [facility] [address] [place] [address] Encounter for person encountering health services; Malignant [...] on file Legal Sex Female 1:06 AM PERINATAL TECHNICIAN Gender Identity Not on file Sexual Orientation Not on file documented as of this encounter Plan of Treatment Not on file documented as of this encounter Procedures Procedure Name Priority Date/Time Associated Diagnosis Comments DIFFERENTIAL AUTO Routine 07/09/2018 11: 06 AM PERINATAL TECHNICIAN Encounter for person encountering health services Malignant neoplasm of upper-inner quadrant of left breast in female, 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) CBC WITH AUTO DIFFERENTIAL Routine 07/09/2018 11:06 AM PERINATAL TECHNICIAN Encounter for person encountering health services Malignant neoplasm of upper-inner quadrant of left breast in female, 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) MANUAL DIFFERENTIAL Routine 07/09/2018 1 1:06 AM PERINATAL TECHNICIAN Encounter for person encountering health services Malignant neoplasm of upper-inner quadrant of left breast in female, 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) COMPREHENSIVE METABOLIC PANEL STAT 07/09/2018 11:06 AM PERINATAL TECHNICIAN Encounter for person encountering health services Malignant neoplasm of upper-inner quadrant of left breast in female, 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) documented in this encounter Results * (ABNORMAL) Manual Differential (07/09/2018 11:06 AM PERINATAL TECHNICIAN) Differential Auto [facility] RBC morphology Present(A ) [facility] Anisocytosis Slight(A) [facility] Platelet estimate Decreased (A) [facility] Blood specimen (specimen) 07/09/2018 11:06 AM PERINATAL TECHNICIAN 07/09/2018 11:17 AM PERINATAL TECHNICIAN N[facility]ative [facility] - 07/09/2018 12:36 PM PERINATAL TECHNICIAN Vianey Miller NP LAB BLOOD ORDERABLES Fin al Result [facility] Department [place] [address] * (ABNORMAL) Differential, auto (07/09/2018 11:06 AM PERINATAL TECHNICIAN) Neutrophil abs 6.2 1.7 - 6.5 K/cumm [facility] Imm gran abs 0.9(H) 0.0 - 0.1 K/cumm [facility] Lymphocyte abs 0.8 0.8 - 3.3 K/cumm [facility] Monocyte abs 0.6 0.2 - 0.8 K/cumm [facility] Eosinophil abs 0.0 0.0 - 0.5 K/cumm [facility] Basophil abs 0.1 0.0 - 0.1 K/cumm [facility] Neutrophil pct 72.0 % [facility] Comment: Interpretive Data Percent cell count reference ranges are not reported, since discordance with absolute values may lead to misinterpretation of CBC data. Current Interpretive Data was last revised on 2017. Imm gran pct 10.4 % [facility] Comment: Interpretive Data Percent cell count reference ranges are not reported, since discordance with absolute values may lead to misinterpretation of CBC data. Current Interpretive Data was last revised on 2017. Lymphocyte pct 9.1 % [facility] Comment: Interpretive Data Percent cell count reference ranges are not reported, since discordance with absolute values may lead to misinterpretation of CBC data. Current Interpretive Data was last revised on 2017. Monocyte pct 7.5 % [facility] Comment: Interpretive Data Percent cell count reference ranges are not reported, since discordance with absolute values may lead to misinterpretation of CBC data. Current Interpretive Data was last revised on 2017. Eosinophil pct 0.2 % [facility] Comment: Interpretive Data Percent cell count reference ranges are not reported, since discordance with absolute values may lead to misinterpretation of CBC data. Current Interpretive Data was last revised on 2017. Basophil pct 0.8 % [facility] Comment: Interpretive Data Percent cell count reference ranges are not reported, since discordance with absolute values may lead to misinterpretation of CBC data. Current Interpretive Data was last revised on 2017. Blood specimen (specimen) 07/09/2018 11:06 AM PERINATAL TECHNICIAN 07/09/2018 11:17 AM PERINATAL TECHNICIAN Narrative [facility] - 07/09/2018 12:36 PM PERINATAL TECHNICIAN Vianey Miller NP LAB BLOOD ORDERABLES Fin al Result [facility] Department [place] [address] * (ABNORMAL) CBC with auto differential (07/09/2018 11:06 AM PERINATAL TECHNICIAN) WBC 8.6 3.8 - 9.9 K/cumm [facility] Hgb 9.8(L) 11.9 - 15.5 g/dL [facility] Hct 29.7(L) 35.6 - 45.5 % [facility] Plt 143(L) 150 - 400 K/cumm [facility] MPV 10.2 9.1 - 12.3 fL [facility] RBC 2.93(L) 3.90 - 5.20 M/cumm [facility] MCV 101.4(H) 81.3 - 96.4 fL [facility] MCH 33.4(H) 27.1 - 33.3 pg [facility] MCHC 33.0 32.3 - 35.7 g/dL [facility] RDW CV 13.4 11.1 - 14.9 % [facility] RDW SD 50.0(H) 35.7 - 48.1 fL [facility] NRBC abs 0.00 0.00 - 0.01 K/cumm [facility] Blood specimen (specimen) 07/09/2018 11:06 AM PERINATAL TECHNICIAN 07/09/2018 11:17 AM PERINATAL TECHNICIAN Narrative [facility] - 07/09/2018 11:24 AM PERINATAL TECHNICIAN us Vianey Miller NP LAB BLOOD ORDERABLES Fin al Result [facility] Department [place] [address] * (ABNORMAL) Comprehensive metabolic panel (07/09/2018 11:06 AM PERINATAL TECHNICIAN) Sodium 141 135 - 145 mmol/L [facility] Potassium, pl 3.1(L) 3.3 - 4.9 mmol/L [facility] Chloride 107 97 - 110 mmol/L [facility] CO2 23 22 - 32 mmol/L [facility] Anion gap 11 2 - 15 mmol/L [facility] BUN 12 8 - 25 mg/dL [facility] Creatinine 0.86 0.60 - 1.10 mg/dL [facility] Glucose 254(H) 70 - 199 mg/dL [facility] Comment: Interpretive Data Fasting glucose [...] 2017. Calcium 9.2 8.5 - 10.3 mg/dL [facility] Bilirubin, total 0.3 0.1 - 1.2 mg/dL [facility] Protein, pl 6.8 6.5 - 8.5 g/dL [facility] Albumin 3.7 3.5 - 5.0 g/dL [facility] Alk phos 78 40 - 130 Units/L [facility] ALT 19 7 - 45 Units/L [facility] AST 26 10 - 45 Units/L [facility] Blood specimen (specimen) 07/09/2018 11:06 AM PERINATAL TECHNICIAN 07/09/2018 11:17 AM PERINATAL TECHNICIAN Narrative [facility] - 07/09/2018 11:42 AM PERINATAL TECHNICIAN Vianey Miller INSPECTOR ALIGNING LAB BLOOD ORDERABLES Fin al Result [facility] Department [place] [address] documented in this encounter Visit Diagnoses Diagnosis Encounter for person encountering health services Malignant neoplasm of upper-inner quadrant of left breast in female, estrogen receptor negative (HCC) documented in this encounter Orders Appointment Requests Count Last Ordered Date Fi rst Ordered Date ONCBCN LAB APPOINTMENT 1 07/09/2018 documented in this encounter Care Teams Electronics Utility Worker Relationship Specialty Start Date End Date Ravi Smith MD PCP - General 11/04/17 09/27/21 Aft, Kianna Machado MD PhD [address] [place] [address] Surgeon Surgical Oncology 11/22/17 Santiago Gilbert MD [address] [place] [address] Search Engine Optimization Analyst Gastroenterology 11/22/17 documented as of this encounter
--- OUTSIDE RECORDS SUMMARY | 2024-04-24 13:49 | XMS_ITS | Encounter Summary ---
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 Oncology [address] [place] [address] Phone: tel: Referral ID Status Reason Start Date Expiration Date Visits Re quested Visits Authorized [id number] Closed 01/31/2018 05/05/2019 1 18 Encounter Details Date Type Department Care Team (Late st Contact Info) Description 05/21/2018 12:00 PM NEUROLOGY DIRECTOR Infusion [facility] Oncology [address] [place] [address] 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) Social History Tobacco Use Types Packs/Day Years Used Date Smoking Tobacco: Former Cigarettes 2015 Smokeless Tobacco: Never Alcohol Use Standard Drinks/Week Comments Yes 0 (1 standard drink = 0.6 oz pur e alcohol) socially Comments No Sex and Gender Information Value Date Recorded Sex Assigned at Not on file Legal Sex Female 1:06 AM NEUROLOGY DIRECTOR Gender Identity Not on file Sexual Orientation Not on file documented as of this encounter Nursing Notes * Olivia Perez RN - 05/21/2018 12:00 PM CST Pt tolerated treatment well. 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 2.32 m2 Treatment Plan BSA from Recorded weight), intravenous, at 1.8 mL/hr, Administer over 46 Hours, over 46 hours, First dose on Sat05/21/18 at 1600, FOR PUMP PROBLEMS CALL [phone] IrritantIndications:Malig nant neoplasm of descending colon (CMS/HCC) (HCC) Given 05/21/2018 3:25 PM NEUROLOGY DIRECTOR 4,200 mg 1.8 mL/hr fluorouracil (ADRUCIL) IV syringe 700 mg 14 mL 700 mg (rounded from 696 mg = 300 mg/m2 ? 2.32 m2 Treatment Plan BSA from Recorded weight), intravenous, Administer over 5 Minutes, Once, On Sat05/21/18 at 1530, For 1 dose, IrritantIndications:Malig nant neoplasm of descending colon (CMS/HCC) (HCC) New Bag 05/21/2018 3:20 PM NEUROLOGY DIRECTOR 700 mg leucovorin 700 mg in dextrose 5% 250 mL IVPB 700 mg (rounded from 696 mg = 300 mg/m2 ? 2.32 m2 Treatment Plan BSA from Recorded weight), intravenous, at 132 mL/hr, Administer over 2 Hours, Once, On Sat05/21/18 at 1330, For 1 dose, Run concurrently with oxaliplatin. Do not exceed rate of 160 mg/min. 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) New Bag 05/21/2018 1:08 PM NEUROLOGY DIRECTOR 700 mg 132 mL/hr palonosetron injection 250 mcg 250 mcg (0.25 mg), intravenous, Once, On Sat05/21/18 at 1300, For 1 dose, For IV push, administer over 30 seconds.Indications:Maligna nt neoplasm of descending colon (CMS/HCC) (HCC) Given 05/21/2018 12:34 PM NEUROLOGY DIRECTOR 250 mcg documented in this encounter Orders Medications Ordered That [place] ht Not Have Been Administered Count Last Ordered Date First Ordered Date dextrose 5% infusion 1 05/21/2018 Nursing Count Last Ordered Date First Orde red Date ONC NURSING COMMUNICATION NEUROPATHY 05/06 ONCBCN TREATMENT PARAMETERS 2 05/21/2018 Appointment Requests Count Last Ordered Date Fi rst Ordered Date ONCBCN RETURN CHEMO 4HRS 1 05/21/2018 documented in this encounter Care Teams Manuscript Reader Relationship Specialty Start Date End Date Ravi Smith MD PCP - General 11/04/17 09/27/21 Aft, Kianna Machado MD PhD [address] [place] [address] Surgeon Surgical Oncology 11/22/17 Santiago Gilbert MD [address] [place] [address] Manager Of Compensation Gastroenterology 11/22/17 documented as of this encounter
--- OUTSIDE RECORDS SUMMARY | 2024-04-24 13:49 | XMS_ITS | Encounter Summary ---
Author Organization [facility] Address [address] [place] [address] Phone Care Team Providers Care General Manager Farm Name Role Phone Ravi Smith MD Primary Care Provider [phone] Kianna Bunch MD PhD Unavailable [phone] Santiago Gilbert MD Unavailable [phone] Encounter Details Date Type Department Care Team (Late st Contact Info) Description 06/04/2018 Telephone [facility] [address] [place] [phone] Fatemeh Zarate RN Social History Tobacco Use Types Packs/Day Years Used Date Smoking Tobacco: Former Cigarettes 2015 Smokeless Tobacco: Never Alcohol Use Standard Drinks/Week Comments Yes 0 (1 standard drink = 0.6 oz pur e alcohol) socially Comments No Sex and Gender Information Value Date Recorded Sex Assigned at Not on file Legal Sex Female 1:06 AM EXPERIMENTAL MACHINIST Gender Identity Not on file Sexual Orientation Not on file documented as of this encounter Miscellaneous Notes * Telephone Encounter - Fatemeh Zarate RN - 06/04/2018 12:22 PM CST ----- Message from Fatemeh Zarate RN sent at 05/21/2018 12:41 PM EXPERIMENTAL MACHINIST ----- Regarding: Follow up Pt to follow up with Dr. Bunch. Follow up to see when surgery is scheduled. Pt will need to return 2-3 weeks after surgery to start TC chemo X4 cycles. DB 05/28/18 Dr. Ventura spoke with Dr. Bunch. With new finding of PE. Dr. Bunch recommended that pt start chemo and consider surgery in 3 months. Pt already scheduled to see Dr. Ventura on 06/04/18. Will add plan for TC. Pt aware. DB 05/28/18 Plan entered for TC. Call pt to discuss need for dex starting day before chemo. DB 06/02/18 Pt sent [email or web address] message. She is planning to go on vacation and does not want to start chemo06/04/18. Will discuss dex with pt at appt. DB 06/04/18 Plan changed. Pt will be starting dose dense AC, not TC. Dex not needed. DB RIMENTAL MACHINIST RIMENTAL MACHINIST documented in this encounter Plan of Treatment Not on file documented as of this encounter Visit Diagnoses Not on filedocumented in this encounter Care Teams General Manager Farm Relationship Specialty Start Date End Date Ravi Smith MD PCP - General 11/04/17 09/27/21 Kianna Bunch MD PhD [address] [place] [address] Surgeon Surgical Oncology 11/22/17 Santiago Gilbert MD [address] [place] [address] Mechanical Service Representative Gastroenterology 11/22/17 documented as of this encounter
--- OUTSIDE RECORDS SUMMARY | 2024-04-24 13:49 | XMS_ITS | Encounter Summary ---
Author Organization [facility] Address [address] [place] [address] Phone Care Team Providers Care Agronomy Technician Name Role Phone Ravi Smith MD Primary Care Provider [phone] Aft, Kianna Machado MD PhD Unavailable [phone] Santiago Gilbert MD Unavailable [phone] Encounter Details Date Type Department Care Team (Late st Contact Info) Description 06/13/2018 Telephone [facility] [address] [place] [phone] Fatemeh Zarate RN Social History Tobacco Use Types Packs/Day Years Used Date Smoking Tobacco: Former Cigarettes 2015 Smokeless Tobacco: Never Alcohol Use Standard Drinks/Week Comments Yes 0 (1 standard drink = 0.6 oz pur e alcohol) socially Comments No Sex and Gender Information Value Date Recorded Sex Assigned at Not on file Legal Sex Female 1:06 AM ENGINE BUILDER Gender Identity Not on file Sexual Orientation Not on file documented as of this encounter Miscellaneous Notes * Telephone Encounter - Fatemeh Zarate RN - 06/13/2018 4:22 PM CST ----- Message from Fatemeh Zarate RN sent at 05/28/2018 12:03 PM ENGINE BUILDER ----- Regarding: Bilateral PE 05/28/18 CT completed which showed bilateral PE. Asked pt to come to [facility] to discuss lovenox. DB 05/28/18 Lovenox copay was $609.76. Xarelto 21 day [...] approx 06/16/18 to pt local pharmacy. DB 06/13/18 Script for xarelto 20mg once daily faxed to pt pharmacy. DB NE BUILDER NE BUILDER documented in this encounter Plan of Treatment Not on file documented as of this encounter Visit Diagnoses Not on filedocumented in this encounter Care Teams Agronomy Technician Relationship Specialty Start Date End Date Ravi Smith MD PCP - General 11/04/17 09/27/21 Aft, Kianna Machado MD PhD [address] [place] [address] Surgeon Surgical Oncology 11/22/17 Santiago Gilbert MD [address] [place] [address] Credit Administration Officer Gastroenterology 11/22/17 documented as of this encounter
--- OUTSIDE RECORDS SUMMARY | 2024-04-24 13:49 | XMS_ITS | Encounter Summary ---
Author Organization [facility] Address [address] [place] [address] Phone Care Team Providers Care Application Integration Specialist Name Role Phone Ravi Smith MD Primary Care Provider [phone] Aft, Kianna Machado MD PhD Unavailable [phone] Santiago Gilbert MD Unavailable [phone] Reason for Visit * Oncology (Routine) - Closed Specialty Diagnoses / Procedures Referred By Contac t Referred To Contact Medical Oncology / Oncology Diagnoses 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 Ventura to discuss TC Procedures ONCBCN CLINIC APPOINTMENT REQUEST RETURN [place] Montoya, ACCOUNT COORDINATOR 4 [facility] [address] [address] Phone: tel: fax: Abbi Ventura MD [address] [place] [address] Phone: tel: fax: Referral ID Status Reason Start Date Expiration Date V isits Requested Visits Authorized [id number] Closed Specialty Services Required 06/04/2018 05/05/2019 99 99 Encounter Details Date Type Department Care Team (Late st Contact Info) Description 06/25/2018 9:00 AM BUSINESS CONTINUITY SPECIALIST Office Visit [facility] [address] [place] [address] Abbi Ventura MD [address] [place] [address] Malignant neoplasm of upper-inner quadrant of left breast in female, 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); Encounter for person encountering health services Social History Tobacco Use Types Packs/Day Years Used Date Smoking Tobacco: Former Cigarettes 1 2015 Smokeless Tobacco: Never Alcohol Use Standard Drinks/Week Comments Yes 0 (1 standard drink = 0.6 oz pur e alcohol) socially Comments No Sex and Gender Information Value Date Recorded Sex Assigned at Not on file Legal Sex Female 1:06 AM BUSINESS CONTINUITY SPECIALIST Gender Identity Not on file Sexual Orientation Not on file documented as of this encounter Last Filed Vital Signs Vital Sign Reading Time Taken Comments Blood Pressure 146/76 06/25/2018 9:34 AM BUSINESS CONTINUITY SPECIALIST Pulse 124 06/25/2018 9:34 AM BUSINESS CONTINUITY SPECIALIST Temperature 36.9 ??C (98.4 ??F) 06/25/2018 9:34 AM CS T Respiratory Rate 18 06/25/2018 9:34 AM BUSINESS CONTINUITY SPECIALIST Oxygen Saturation 93% 06/25/2018 9:34 AM BUSINESS CONTINUITY SPECIALIST Inhaled Oxygen Concentration - - Weight 109.8 kg (242 lb) 06/25/2018 9:34 AM BUSINESS CONTINUITY SPECIALIST Height 172.7 cm (5' 8 ) 06/25/2018 9:34 AM BUSINESS CONTINUITY SPECIALIST Body Mass Index 36.8 06/25/2018 9:34 AM BUSINESS CONTINUITY SPECIALIST documented in this encounter Progress Notes * Vianey Miller, ACCOUNT COORDINATOR - 06/25/2018 9:00 AM CST Patient Identifying Data: Aleah Gerber is a 62 y.o. female seen in followup today DIAGNOSIS: 1. 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 [place] My risk showed no mutation in [facility] [...] of adjuvant chemotherapy with 5FU/LV on 05/21/18 Interval History Returns to clinic to initiate chemotherapy. Neuropathy stable. Continues to take Xerelto daily without bleeding concerns. No new complaints. Review of Systems Review of systems positive for symptoms as per interval history. All other review of systems negative. Objective Vitals: Vitals BP 146/76 (BP Location: Left arm) Pulse 124 Temp 36.9 ??C (98.4 ??F) (Oral) Resp 18 Ht 172.7 cm (5' 8 ) Wt 109.8 kg (242 lb) SpO2 93% BMI 36.80 kg/m?? PERFORMANCE STATUS: ECOG 1 SKIN: Normal [...] movements are intact. There is no nystagmus. She is able to walk but has to stop periodically as her legs feel stiff. Her hands function was not evaluated in clinic but per patient she has some difficulty with that also at home. LYMPH NODES: The patient has no cervical, [...] aredisplayed. Labs - Hematology Latest Ref Range 05/07/18 05/21/18 06/04/18 06/25/18 WBC 3.8 - 9.9 K/cumm 3.3 (A) 4.8 6.3 7.1 Total Hb, POC 11.9 - 15.5 g/dL 9.6 (A) 9.5 (A) 10.4 (A) 10.1 (A) Hct 35.6 - 45.5 % 27.9 (A) 28.0 (A) 30.4 (A) 31.3 (A) Plt 150 - 400 K/cumm 84 (A) 87 (A) 118 (A) 181 Neutrophil abs 1.7 - 6.5 K/cumm 1.6 (A) 3.0 3.8 5.2 (A) Abnormal value Lab Results Component Value Date SODIUM 141 06/25/2018 POTASSIUM 4.1 06/25/2018 CO2 26 06/25/2018 BUNSER 15 06/25/2018 GLUCOSE 229 (H) 06/25/2018 CREATININE 0.87 06/25/2018 CALCIUM 9.4 06/25/2018 CHLORIDE 107 06/25/2018 ALBUMIN 3.7 06/25/2018 AST 42 06/25/2018 ALT 29 06/25/2018 ALKPHOS 76 06/25/2018 BILITOT 0.3 06/25/2018 PROT 6.3 (L) 06/25/2018 ANIONGAP 8 06/25/2018 Tumor Marker History Some values may be hidden. Unless noted otherwise, only the newest values recorded on each date aredisplayed. Tumor Markers Latest Ref Range 03/19/18 04/09/18 05/07/18 05/21/18 CEA <=5.0 ng/mL 4.8 4.2 5.0 4.0 Comments are available for some flowsheets but are not being displayed. Recent labs, radiology and pathology reviewed in [facility] ASSESSMENT: T4bN0 disease, Stage IIC colon adenocarcinoma: Completed adjuvant chemotherapy. She has residual grade 2 sensory/motor neuropathy. 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 Presents today to initiatecycle 1 AC. Again, discussed risks and potential side effects of treatment. [facility] BRCA2 mutation, and VUS in BRIP1 and NBN: patient wants to hold off prophylactic mastectomy at this point. Prophylactic BSO will be considered in the future. Depression/anxiety: follow up with Dr. Simms Tachycardia: we did EKG during last visit and it was sinus tachycardia. 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 PLAN: Proceed with cycle 1 AC today RTC 2 weeks prior to cycle 2. Aleah Gerber will follow up as directed above, she was encouraged to call in the interim with questions or concerns. Vianey Miller, MSN, OCN, ANP Nurse Practitioner, Medical Oncology Security Risk Analyst completed by using M*Modal Fluency Direct speaking software, therefore, transcriptionvariances may occur. NESS CONTINUITY SPECIALIST documented in this encounter Plan of Treatment Not on file documented as of this encounter Results * (ABNORMAL) Comprehensive metabolic panel (07/09/2018 11:06 AM BUSINESS CONTINUITY SPECIALIST) Sodium 141 135 - 145 mmol/L [facility] Potassium, pl 3.1(L) 3.3 - 4.9 mmol/L [facility] Chloride 107 97 - 110 mmol/L [facility] CO2 23 22 - 32 mmol/L [facility] Anion gap 11 2 - 15 mmol/L [facility] BUN 12 8 - 25 mg/dL [facility] Creatinine 0.86 0.60 - 1.10 mg/dL [facility] Glucose 254(H) 70 - 199 mg/dL [facility] [...] 2017. Calcium 9.2 8.5 - 10.3 mg/dL [facility] Bilirubin, total 0.3 0.1 - 1.2 mg/dL [facility] Protein, pl 6.8 6.5 - 8.5 g/dL [facility] Albumin 3.7 3.5 - 5.0 g/dL [facility] Alk phos 78 40 - 130 Units/L [facility] ALT 19 7 - 45 Units/L [facility] AST 26 10 - 45 Units/L [facility] Blood specimen (specimen) 07/09/2018 11:06 AM BUSINESS CONTINUITY SPECIALIST 07/09/2018 11:17 AM BUSINESS CONTINUITY SPECIALIST Narrative [facility] - 07/09/2018 11:42 AM BUSINESS CONTINUITY SPECIALIST Vianey Miller NP LAB BLOOD ORDERABLES Fin al Result [facility] One [facility] [place] [address] * (ABNORMAL) CBC with auto differential (07/09/2018 11:06 AM BUSINESS CONTINUITY SPECIALIST) WBC 8.6 3.8 - 9.9 K/cumm [facility] Hgb 9.8(L) 11.9 - 15.5 g/dL [facility] Hct 29.7(L) 35.6 - 45.5 % [facility] Plt 143(L) 150 - 400 K/cumm [facility] MPV 10.2 9.1 - 12.3 fL [facility] RBC 2.93(L) 3.90 - 5.20 M/cumm [facility] MCV 101.4(H) 81.3 - 96.4 fL [facility] MCH 33.4(H) 27.1 - 33.3 pg [facility] MCHC 33.0 32.3 - 35.7 g/dL [facility] RDW CV 13.4 11.1 - 14.9 % [facility] RDW SD 50.0(H) 35.7 - 48.1 fL [facility] NRBC abs 0.00 0.00 - 0.01 K/cumm [facility] Blood specimen (specimen) 07/09/2018 11:06 AM BUSINESS CONTINUITY SPECIALIST 07/09/2018 11:17 AM BUSINESS CONTINUITY SPECIALIST Narrative [facility] - 07/09/2018 11:24 AM BUSINESS CONTINUITY SPECIALIST Vianey Miller ACCOUNT COORDINATOR LAB BLOOD ORDERABLES Fin al Result [facility] One [facility] Department [place] [address] documented in this encounter Visit Diagnoses Diagnosis Malignant neoplasm of upper-inner quadrant of left breast in female, estrogen receptor negative (HCC) Encounter for person encountering health services Encounter for person encountering health services Malignant neoplasm of upper-inner quadrant of left breast in female, estrogen receptor negative (HCC) documented in this encounter Discontinued Medications Medication Sig Discontinue Reason Start Date End Da te rivaroxaban (XARELTO) 15 mg tabletIndications:bilate ral PE's Take 1 tablet (15 mg total) by mouth 2 (two) times a day for 14 days. Dose adjustment 05/28/2018 06/25/2018 documented as of this encounter Orders Appointment Requests Count Last Ordered Date Fi rst Ordered Date ONCBCN CLINIC APPOINTMENT REQUEST 2 019 06/25/2018 ONCBCN LAB APPOINTMENT 1 07/09/2018 ONCBCN RETURN CHEMO 2HRS 1 07/09/2018 documented in this encounter Care Teams Application Integration Specialist Relationship Specialty Start Date End Date Ravi Smith MD PCP - General 11/04/17 09/27/21 Aft, Kianna Machado MD PhD [address] [place] [address] Surgeon Surgical Oncology 11/22/17 Santiago Gilbert MD [address] [place] [address] Medical Recruiter Gastroenterology 11/22/17 documented as of this encounter
--- OUTSIDE RECORDS SUMMARY | 2024-04-24 13:49 | XMS_ITS | Encounter Summary ---
Author Organization [facility] Address [address] [place] [address] Phone Care Team Providers Care Relay Repairer Name Role Phone Ravi Smith MD Primary Care Provider [phone] Aft, Kianna Machado MD PhD Unavailable [phone] Santiago Gilbert MD Unavailable [phone] Reason for Visit * Episode Based Medications (Routine) - Closed Specialty Diagnoses / Procedures Referred By Vijaya t Referred To Contact Oncology Diagnoses Malignant neoplasm of upper-inner quadrant of left breast in female, estrogen receptor negative (HCC) Encounter for person encountering health services Procedures TX DOXORUBIC HCL 10 MG VL CHEMO TX CYCLOPHOSPHAMIDE 100 MG INJ TX INJECTION, PEGFILGRASTIM 6MG TX PALONOSETRON HCL TX FOSAPREPITANT INJECTION Dose-Dense AC: DOXOrubicin (ADRIAMYCIN) / Cyclophosphamide) with Abbi Chavez MD [address] [place] [address] Phone: tel: fax: [facility] [address] [place] [address] Phone: tel: fax: Referral ID Status Reason Start Date Expiration Date Visits Re quested Visits Authorized [id number] Closed 06/25/2018 09/02/2018 1 36 Encounter Details Date Type Department Care Team (Latest Contact Info) Description 06/25/2018 8:30 AM CHEESE COOKER Clinical Support [facility] [address] [place] [address] Malignant neoplasm of upper-inner quadrant of left [...] file Legal Sex Female 1:06 AM CHEESE COOKER Gender Identity Not on file Sexual Orientation Not on file documented as of this encounter Plan of Treatment Not on file documented as of this encounter Procedures Procedure Name Priority Date/Time Associated Diagnosis Comments DIFFERENTIAL AUTO Routine 06/25/2018 9:1 3 AM CHEESE COOKER Malignant neoplasm of upper-inner quadrant of left breast in female, 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) CBC WITH AUTO DIFFERENTIAL Routine 06/25/2018 9:13 AM CHEESE COOKER Malignant neoplasm of upper-inner quadrant of left breast in female, 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) COMPREHENSIVE METABOLIC PANEL STAT 06/25/2018 9:13 AM CHEESE COOKER Malignant neoplasm of upper-inner quadrant of left breast in female, 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) documented in this encounter Results * Differential, auto (06/25/2018 9:13 AM CHEESE COOKER) Neutrophil abs 5.2 1.7 - 6.5 K/cumm [facility] Imm gran abs 0.0 0.0 - 0.1 K/cumm [facility] Lymphocyte abs 1.1 0.8 - 3.3 K/cumm [facility] Monocyte abs 0.5 0.2 - 0.8 K/cumm [facility] Eosinophil abs 0.2 0.0 - 0.5 K/cumm [facility] Basophil abs 0.0 0.0 - 0.1 K/cumm [facility] Neutrophil pct 73.2 % [facility] Comment: Interpretive Data Percent cell count reference ranges are not reported, since discordance with absolute values may lead to misinterpretation of CBC data. Current Interpretive Data was last revised on 2017. Imm gran pct 0.7 % [facility] Comment: Interpretive Data Percent cell count reference ranges are not reported, since discordance with absolute values may lead to misinterpretation of CBC data. Current Interpretive Data was last revised on 2017. Lymphocyte pct 15.4 % [facility] Comment: Interpretive Data Percent cell count reference ranges are not reported, since discordance with absolute values may lead to misinterpretation of CBC data. Current Interpretive Data was last revised on 2017. Monocyte pct 6.8 % [facility] Comment: Interpretive Data Percent cell count reference ranges are not reported, since discordance with absolute values may lead to misinterpretation of CBC data. Current Interpretive Data was last revised on 2017. Eosinophil pct 3.2 % [facility] Comment: Interpretive Data Percent cell count reference ranges are not reported, since discordance with absolute values may lead to misinterpretation of CBC data. Current Interpretive Data was last revised on 2017. Basophil pct 0.7 % [facility] Comment: Interpretive Data Percent cell count reference ranges are not reported, since discordance with absolute values may lead to misinterpretation of CBC data. Current Interpretive Data was last revised on 2017. Blood specimen (specimen) 06/25/2018 9:13 AM CHEESE COOKER 06/25/2018 9:15 AM CHEESE COOKER Narrative [facility] - 06/25/2018 9:19 AM CHEESE COOKER us Abbi Ventura MD LAB BLOOD ORDERABLES Final Resul t [facility] One [facility] Department [place] [address] * (ABNORMAL) Comprehensive metabolic panel (06/25/2018 9:13 AM CHEESE COOKER) Sodium 141 135 - 145 mmol/L [facility] Potassium, pl 4.1 3.3 - 4.9 mmol/L [facility] Chloride 107 97 - 110 mmol/L [facility] CO2 26 22 - 32 mmol/L [facility] Anion gap 8 2 - 15 mmol/L [facility] BUN 15 8 - 25 mg/dL [facility] Creatinine 0.87 0.60 - 1.10 mg/dL [facility] Glucose 229(H) 70 - 199 mg/dL [facility] Comment: Interpretive Data Fasting glucose >/= [...] 2017. Calcium 9.4 8.5 - 10.3 mg/dL [facility] Bilirubin, total 0.3 0.1 - 1.2 mg/dL [facility] Protein, pl 6.3(L) 6.5 - 8.5 g/dL [facility] Albumin 3.7 3.5 - 5.0 g/dL [facility] Alk phos 76 40 - 130 Units/L [facility] ALT 29 7 - 45 Units/L [facility] AST 42 10 - 45 Units/L [facility] Blood specimen (specimen) 06/25/2018 9:13 AM CHEESE COOKER 06/25/2018 9:15 AM CHEESE COOKER Narrative [facility] - 06/25/2018 9:41 AM CHEESE COOKER us Abbi Ventura MD LAB BLOOD ORDERABLES Final Resul t [facility] One [facility] Department [place] [address] * (ABNORMAL) CBC with auto differential (06/25/2018 9:13 AM CHEESE COOKER) WBC 7.1 3.8 - 9.9 K/cumm [facility] Hgb 10.1(L) 11.9 - 15.5 g/dL [facility] Hct 31.3(L) 35.6 - 45.5 % [facility] Plt 181 150 - 400 K/cumm [facility] MPV 9.4 9.1 - 12.3 fL [facility] RBC 2.99(L) 3.90 - 5.20 M/cumm [facility] MCV 104.7(H) 81.3 - 96.4 fL [facility] MCH 33.8(H) 27.1 - 33.3 pg [facility] MCHC 32.3 32.3 - 35.7 g/dL [facility] RDW CV 14.2 11.1 - 14.9 % [facility] RDW SD 54.4(H) 35.7 - 48.1 fL [facility] NRBC abs 0.00 0.00 - 0.01 K/cumm [facility] Blood specimen (specimen) 06/25/2018 9:13 AM CHEESE COOKER 06/25/2018 9:15 AM CHEESE COOKER Narrative [facility] - 06/25/2018 9:19 AM CHEESE COOKER us Abbi Ventura MD LAB BLOOD ORDERABLES Final Resul t [facility] Department [place] [address] documented in this encounter Visit Diagnoses Diagnosis Malignant neoplasm of upper-inner quadrant of left breast in female, estrogen receptor negative (HCC) documented in this encounter Orders Appointment Requests Count Last Ordered Date Fi rst Ordered Date ONCBCN LAB APPOINTMENT 1 06/25/2018 documented in this encounter Care Teams Relay Repairer Relationship Specialty Start Date End Date Ravi Smith MD PCP - General 11/04/17 09/27/21 Aft, Kianna Machado MD PhD [address] [place] [address] Surgeon Surgical Oncology 11/22/17 Santiago Gilbert MD [address] [place] [address] Truck Repair Supervisor Gastroenterology 11/22/17 documented as of this encounter
--- OUTSIDE RECORDS SUMMARY | 2024-04-24 13:49 | XMS_ITS | Encounter Summary ---
Author Organization [facility] Address [address] [place] [address] Phone Care Team Providers Care Delinquent Tax Collector Name Role Phone Ravi Smith MD Primary Care Provider [phone] Aft, Kianna Machado MD PhD Unavailable [phone] Santiago Gilbert MD Unavailable [phone] Encounter Details Date Type Department Care Team (Late st Contact Info) Description 06/13/2018 Telephone [facility] Oncology [address] [place] [id number] Abbi Ventura MD [address] [facility] [address] [place] [address] Social History Tobacco Use Types Packs/Day Years Used Date Smoking Tobacco: Former Cigarettes 2015 Smokeless Tobacco: Never Alcohol Use Standard Drinks/Week Comments Yes 0 (1 standard drink = 0.6 oz pur e alcohol) socially Comments No Sex and Gender Information Value Date Recorded Sex Assigned at Not on file Legal Sex Female 1:06 AM CRANE OILER Gender Identity Not on file Sexual Orientation Not on file documented as of this encounter Miscellaneous Notes * Telephone Encounter - Mag Duff MA - 06/13/2018 1:17 PM CRANE OILER ----- Message from Mag Duff MA sent at 05/21/2018 1:34 PM CRANE OILER ----- Regarding: Neuro ref 05/21/18 Neuro referral sent. F/up apt. Pt having leg weakness for several weeks worse the week after chemotherapy. PS 05/23/18 Per Rosana in [facility] chart has been sent for review. After Doc review office will contact pt toschedule. Rosana states could take a week. PS 06/03/18 Per Roel in Neuro chart still under review. Physician review team is behind do to holidays. Hopefully she should be scheduled by end of week. F/up apt on Saturday. PS 06/06/18 No apt sawyer Below is note on apt request. Shay Hall MD 06/03/2018 10:51 PM CRANE OILER Check with Trena Obando to see if she is would like to see her. Otherwise I can. Seems like chemo related neuropathy. 06/06/13 I lm for pt asking if they called her also gave her Neuro # and asked her to call. PS 06/09/18 Per Lavonne in neuro referral sent to neuro muscle waiting to hear from doctor. They will contact pt once advised by review team. PS 06/13/18 Per referral note in active request on 06/11/18 tried to reach pt to [facility]. No appointment scheduled. LM for pt asking her to call office. Need to figure out what is going on with this apt. PS 06/13/18 Per pt she is sawyer with Neuro on 08/14/18. Stated that was the earliest pt could be seen. Office stated they will call pt if there is a cx apt and move her apt sooner. PS E OILER E OILER documented in this encounter Plan of Treatment Not on file documented as of this encounter Visit Diagnoses Not on filedocumented in this encounter Care Teams Delinquent Tax Collector Relationship Specialty Start Date End Date Ravi Smith MD PCP - General 11/04/17 09/27/21 Aft, Kianna Machado MD PhD [address] [place] [address] Surgeon Surgical Oncology 11/22/17 Santiago Gilbert MD [address] [place] [address] Sewing Machine Operator Gastroenterology 11/22/17 documented as of this encounter
--- OUTSIDE RECORDS SUMMARY | 2024-04-24 13:49 | XMS_ITS | Encounter Summary ---
Author Organization [facility] Address [address] [place] [address] Phone Care Team Providers Care Quality Improvement Coordinator (Rn) Name Role Phone Ravi Smith MD Primary Care Provider [phone] Aft, Kianna Machado MD PhD Unavailable [phone] Santiago Gilbert MD Unavailable [phone] Encounter Details Date Type Department Care Team (Latest Contact Info) Description 06/04/2018 8:15 AM PLACEMENT COORDINATOR Clinical Support [facility] Oncology [address] [place] [address] Malignant neoplasm of descending colon (CMS/HCC); Malignant [...] on file Legal Sex Female 1:06 AM PLACEMENT COORDINATOR Gender Identity Not on file Sexual Orientation Not on file documented as of this encounter Plan of Treatment Not on file documented as of this encounter Procedures Procedure Name Priority Date/Time Associated Diagnosis Comments DIFFERENTIAL AUTO Routine 06/04/2018 8:3 0 AM PLACEMENT COORDINATOR Malignant neoplasm of upper-inner quadrant of left breast in female, 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) CBC WITH AUTO DIFFERENTIAL Routine 06/04/2018 8:30 AM PLACEMENT COORDINATOR Malignant neoplasm of upper-inner quadrant of left breast in female, 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) COMPREHENSIVE METABOLIC PANEL Routine 06/04/2018 8:30 AM PLACEMENT COORDINATOR Malignant neoplasm of upper-inner quadrant of left breast in female, 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) documented in this encounter Results * Differential, auto (06/04/2018 8:30 AM PLACEMENT COORDINATOR) Neutrophil abs 3.8 1.7 - 6.5 K/cumm [facility] Imm gran abs 0.0 0.0 - 0.1 K/cumm [facility] Lymphocyte abs 1.8 0.8 - 3.3 K/cumm [facility] Monocyte abs 0.6 0.2 - 0.8 K/cumm [facility] Eosinophil abs 0.1 0.0 - 0.5 K/cumm [facility] Basophil abs 0.0 0.0 - 0.1 K/cumm [facility] Neutrophil pct 59.6 % [facility] Comment: Interpretive Data Percent cell count reference ranges are not reported, since discordance with absolute values may lead to misinterpretation of CBC data. Current Interpretive Data was last revised on 2017. Imm gran pct 0.5 % [facility] Comment: Interpretive Data Percent cell count reference ranges are not reported, since discordance with absolute values may lead to misinterpretation of CBC data. Current Interpretive Data was last revised on 2017. Lymphocyte pct 28.4 % [facility] Comment: Interpretive Data Percent cell count reference ranges are not reported, since discordance with absolute values may lead to misinterpretation of CBC data. Current Interpretive Data was last revised on 2017. Monocyte pct 8.8 % [facility] Comment: Interpretive Data Percent cell count reference ranges are not reported, since discordance with absolute values may lead to misinterpretation of CBC data. Current Interpretive Data was last revised on 2017. Eosinophil pct 2.1 % [facility] Comment: Interpretive Data Percent cell count reference ranges are not reported, since discordance with absolute values may lead to misinterpretation of CBC data. Current Interpretive Data was last revised on 2017. Basophil pct 0.6 % [facility] Comment: Interpretive Data Percent cell count reference ranges are not reported, since discordance with absolute values may lead to misinterpretation of CBC data. Current Interpretive Data was last revised on 2017. Blood specimen (specimen) 06/04/2018 8:30 AM PLACEMENT COORDINATOR 06/04/2018 8:35 AM PLACEMENT COORDINATOR Narrative [facility] - 06/04/2018 8:38 AM PLACEMENT COORDINATOR us Abbi Ventura MD LAB BLOOD ORDERABLES Final Resul t [facility] Department [place] [address] * (ABNORMAL) Comprehensive metabolic panel (06/04/2018 8:30 AM PLACEMENT COORDINATOR) Sodium 137 135 - 145 mmol/L [facility] Potassium, pl 3.4 3.3 - 4.9 mmol/L [facility] Chloride 101 97 - 110 mmol/L [facility] CO2 22 22 - 32 mmol/L [facility] Anion gap 14 2 - 15 mmol/L [facility] BUN 18 8 - 25 mg/dL [facility] Creatinine 0.88 0.60 - 1.10 mg/dL [facility] Glucose 385(H) 70 - 199 mg/dL [facility] [...] 2017. Calcium 9.6 8.5 - 10.3 mg/dL [facility] Bilirubin, total 0.5 0.1 - 1.2 mg/dL [facility] Protein, pl 6.8 6.5 - 8.5 g/dL [facility] Albumin 4.0 3.5 - 5.0 g/dL [facility] Alk phos 98 40 - 130 Units/L [facility] ALT 47(H) 7 - 45 Units/L [facility] AST 46(H) 10 - 45 Units/L [facility] Blood specimen (specimen) 06/04/2018 8:30 AM PLACEMENT COORDINATOR 06/04/2018 8:35 AM PLACEMENT COORDINATOR Narrative [facility] - 06/04/2018 8:59 AM PLACEMENT COORDINATOR us Abbi Ventura MD LAB BLOOD ORDERABLES Final Resul t [facility] Department [place] [address] * (ABNORMAL) CBC with auto differential (06/04/2018 8:30 AM PLACEMENT COORDINATOR) WBC 6.3 3.8 - 9.9 K/cumm [facility] Hgb 10.4(L) 11.9 - 15.5 g/dL [facility] Hct 30.4(L) 35.6 - 45.5 % [facility] Plt 118(L) 150 - 400 K/cumm [facility] MPV 9.4 9.1 - 12.3 fL [facility] RBC 2.99(L) 3.90 - 5.20 M/cumm [facility] MCV 101.7(H) 81.3 - 96.4 fL [facility] MCH 34.8(H) 27.1 - 33.3 pg [facility] MCHC 34.2 32.3 - 35.7 g/dL [facility] RDW CV 16.7(H) 11.1 - 14.9 % [facility] RDW SD 61.8(H) 35.7 - 48.1 fL [facility] NRBC abs 0.03(H) 0.00 - 0.01 K/cumm [facility] Blood specimen (specimen) 06/04/2018 8:30 AM PLACEMENT COORDINATOR 06/04/2018 8:35 AM PLACEMENT COORDINATOR Narrative [facility] - 06/04/2018 8:38 AM PLACEMENT COORDINATOR us Abbi Ventura MD LAB BLOOD ORDERABLES Final Resul t [facility] Department [place] [address] documented in this encounter Visit Diagnoses Diagnosis Malignant neoplasm of descending colon (CMS/HCC) (HCC) Malignant neoplasm 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, estrogen receptor negative (HCC) documented in this encounter Orders Appointment Requests Count Last Ordered Date Fi rst Ordered Date ONCBCN LAB APPOINTMENT 1 06/04/2018 documented in this encounter Care Teams Quality Improvement Coordinator (Rn) Relationship Specialty Start Date End Date Ravi Smith MD PCP - General 11/04/17 09/27/21 Aft, Kianna Machado MD PhD [address] [place] [address] Surgeon Surgical Oncology 11/22/17 Santiago Gilbert MD [address] [place] [address] Healthcare Associate Gastroenterology 11/22/17 documented as of this encounter
--- OUTSIDE RECORDS SUMMARY | 2024-04-24 13:49 | XMS_ITS | Encounter Summary ---
Author Organization [facility] Address [address] [place] [address] Phone Care Team Providers Care Second Cook And Baker Name Role Phone Ravi Smith MD Primary Care Provider [phone] Aft, Kianna Machado MD PhD Unavailable [phone] Santiago Gilbert MD Unavailable Reason for Visit * Reason Comments OP Infusion Encounter Details Date Type Department Care Team (Late st Contact Info) Description 07/18/2018 10:30 AM CDT Infusion [facility] Oncology [address] [place] [address] Dehydration (Primary Dx); Malignant neoplasm of descending [...] on file Legal Sex Female 1:06 AM POCKET CUTTER Gender Identity Not on file Sexual Orientation Not on file documented as of this encounter Last Filed Vital Signs Vital Sign Reading Time Taken Comments Blood Pressure 139/65 07/18/2018 10:54 AM CDT Pulse 124 07/18/2018 10:54 AM CDT Temperature 36.9 ??C (98.4 ??F) 07/18/2018 1 0:54 AM CDT Respiratory Rate 18 07/18/2018 10:5 4 AM CDT Oxygen Saturation 97% 07/18/2018 10: 54 AM CDT Inhaled Oxygen Concentration - - Weight 103.1 kg (227 lb 4.8 oz) 019 10:54 AM CDT Height - - Body Mass Index 34.56 07/09/2018 12:46 PM POCKET CUTTER documented in this encounter Nursing Notes * Amy Braga RN - 07/18/2018 10:30 AM CDT Here for hydration, saw dentist today, pt states she called LYDIA Weldon to clarify antibiotics dentistwanted to put patient on. Pt tolerated fluids well without any issues or complaints. Discharged in stable condition. documented in this encounter [...] mL/hr, Administer over 90 Minutes, Once, On Sat07/18/18 at 1145, For 1 doseIndications:Dehydratio n,Malignant neoplasm of descending colon (CMS/HCC) (HCC),Malignant neoplasm of upper-inner quadrant of left breast in female, estrogen receptor negative (HCC) New Bag 07/18/2018 11:05 AM CDT 1,000 mL 666.7 mL/hr documented in this encounter Orders Medications Ordered That [place] ht Not Have Been Administered Count Last Ordered Date First Ordered Date sodium chloride 0.9% bolus 1,000 mL 1 07/18 documented in this encounter Care Teams Second Cook And Baker Relationship Specialty Start Date End Date Ravi Smith MD PCP - General 11/04/17 09/27/21 Aft, Kianna Machado MD PhD [address] [place] [address] Surgeon Surgical Oncology 11/22/17 Santiago Gilbert MD [address] [place] [address] Group Exercise Instructor Gastroenterology 11/22/17 documented as of this encounter
--- OUTSIDE RECORDS SUMMARY | 2024-04-24 13:49 | XMS_ITS | Encounter Summary ---
Author Organization [facility] Address [address] [place] [address] Phone Care Team Providers Care Behavioral Health Professional Name Role Phone Ravi Smith MD Primary Care Provider [phone] Aft, Kianna Machado MD PhD Unavailable [phone] Santiago Gilbert MD Unavailable [phone] Reason for Visit * Oncology (Routine) - Closed Specialty Diagnoses / Procedures Referred By Contac t Referred To Contact Medical Oncology / Oncology Diagnoses 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 Ventura to discuss TC Procedures ONCBCN CLINIC APPOINTMENT REQUEST RETURN [place] Montoya, CRIMINAL JUSTICE DEPARTMENT CHAIR 4 [facility] [address] [address] Phone: tel: fax: Abbi Ventura MD [address] [facility] [address] [place] [address] Phone: tel: fax: Referral ID Status Reason Start Date Expiration Date V isits Requested Visits Authorized [id number] Closed Specialty Services Required 06/04/2018 05/05/2019 99 99 Encounter Details Date Type Department Care Team (Late st Contact Info) Description 07/09/2018 11:30 AM TAX COMPLIANCE MANAGER Office Visit [facility] Oncology [address] [place] [address] Abbi Ventura MD [address] [facility] [address] [place] [address] Encounter for person encountering health services; Malignant [...] on file Legal Sex Female 1:06 AM TAX COMPLIANCE MANAGER Gender Identity Not on file Sexual Orientation Not on file documented as of this encounter Last Filed Vital Signs Vital Sign Reading Time Taken Comments Blood Pressure 161/73 07/09/2018 12:46 PM TAX COMPLIANCE MANAGER Pulse 124 07/09/2018 12:46 PM TAX COMPLIANCE MANAGER Temperature 36.4 ??C (97.5 ??F) 07/09/2018 1 2:46 PM TAX COMPLIANCE MANAGER Respiratory Rate 16 07/09/2018 12:4 6 PM TAX COMPLIANCE MANAGER Oxygen Saturation 97% 07/09/2018 12: 46 PM TAX COMPLIANCE MANAGER Inhaled Oxygen Concentration - - Weight 108.7 kg (239 lb 9.6 oz) 019 12:46 PM TAX COMPLIANCE MANAGER Height 172.7 cm (5' 8 ) 07/09/2018 12:4 6 PM TAX COMPLIANCE MANAGER Body Mass Index 36.43 07/09/2018 12:46 PM TAX COMPLIANCE MANAGER documented in this encounter Ordered Prescriptions Prescription Sig Dispense Quantity Refills Last Filled Start Date End Date potassium chloride ER (KLOR-CON,K-DUR) 10 mEq CR tablet Take 1 tablet/caps ule (10 mEq total) by mouth 2 (two) times a day . 30 tablet/capsule 3 07/09/2018 09/22/2018 documented in this encounter Progress Notes * Abbi Ventura MD - 07/09/2018 11:30 AM CST Patient Identifying Data: Aleah Gerber [...] breast cancer started on 06/25/18 Interval History C/o mouth sores and gum sores with cycle 1 of AC. She did not use magic mouth wash as the cold mouth rinse was making it painful. She had mild fatigue. She sometimes has low back pain that goes down to her knees and that stops her walking and then it gets better. She says that she had this sciaticatype of pain even before she started chemotherapy. One morning she woke up and had a stain on her shirt left side near nipple. It was not bloody. She had slept that night without her bra. No new complaints. Review of Systems Review of systems positive for symptoms as per interval history. All other review of systems negative. Objective Vitals: Vitals BP 161/73 (BP Location: Right arm) Pulse 124 Temp 36.4 ??C (97.5 ??F) (Oral) Resp 16 Ht 172.7 cm (5' 8 ) Wt 108.7 kg (239 lb 9.6 oz) SpO2 97% BMI 36.43 kg/m?? PERFORMANCE STATUS: ECOG 1 SKIN: Normal [...] aredisplayed. Labs - Hematology Latest Ref Range 05/21/18 06/04/18 06/25/18 07/09/18 WBC 3.8 - 9.9 K/cumm 4.8 6.3 7.1 8.6 Total Hb, POC 11.9 - 15.5 g/dL 9.5 (A) 10.4 (A) 10.1 (A) 9.8 (A) Hct 35.6 - 45.5 % 28.0 (A) 30.4 (A) 31.3 (A) 29.7 (A) Plt 150 - 400 K/cumm 87 (A) 118 (A) 181 143 (A) Neutrophil abs 1.7 - 6.5 K/cumm 3.0 3.8 5.2 6.2 (A) Abnormal value Lab Results Component Value Date SODIUM 141 07/09/2018 POTASSIUM 3.1 (L) 07/09/2018 CO2 23 07/09/2018 BUNSER 12 07/09/2018 GLUCOSE 254 (H) 07/09/2018 CREATININE 0.86 07/09/2018 CALCIUM 9.2 07/09/2018 CHLORIDE 107 07/09/2018 ALBUMIN 3.7 07/09/2018 AST 26 07/09/2018 ALT 19 07/09/2018 ALKPHOS 78 07/09/2018 BILITOT 0.3 07/09/2018 PROT 6.8 07/09/2018 ANIONGAP 11 07/09/2018 Tumor Marker History Some values may be hidden. Unless noted otherwise, only the newest values recorded on each date aredisplayed. Tumor Markers Latest Ref Range 03/19/18 04/09/18 05/07/18 05/21/18 CEA <=5.0 ng/mL 4.8 4.2 5.0 4.0 Comments are available for some flowsheets but are not being displayed. Recent labs, radiology and pathology reviewed in [facility] ASSESSMENT: T4bN0 disease, Stage IIC colon adenocarcinoma: Completed adjuvant chemotherapy. 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 Had grade 1 fatigue and grade 2 mucositis with cycle 1 of AC. Continues to have grade 2 anemia MyRisk panel is positive for BRCA2 mutation, and VUS in BRIP1 and NBN: patient wants to hold off prophylactic mastectomy at this point. Prophylactic BSO will be considered in the future. Depression/anxiety: follow up with Dr. 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 PLAN: Cycle 2 of AC today. I d/w patient about dose reduction by 25% but she wants to get full dose again. She wants to try magic mouth wash with some warm water. She figured out towards the end that she could tolerate magic mouth wash once it was warmed with warm water. RTC 2 weeks prior to cycle 3 of AC Total 4 cycles of AC planned and then left breast re-excision surgery. Given c/o left nipple discharge one day, I d/w Dr. Aft about ordering left breast mammogram/US and she is planning on arranging them. Replace KCL orally. We will call in a prescription for 10 meq q day. F/u PCP regarding diabetes. Abbi Ventura MD Day Care Attendantarmor officer Division of Oncology Section of Medical Oncology [facility] Director Of Operations Support completed by using M*Modal Fluency Direct speaking software, therefore, transcriptionvariances may occur. COMPLIANCE MANAGER documented in this encounter Plan of Treatment Not on file documented as of this encounter Results * (ABNORMAL) Comprehensive metabolic panel (07/23/2018 11:16 AM CDT) Sodium 141 135 - 145 mmol/L [facility] Potassium, pl 3.1(L) 3.3 - 4.9 mmol/L [facility] Chloride 102 97 - 110 mmol/L [facility] CO2 27 22 - 32 mmol/L [facility] Anion gap 12 2 - 15 mmol/L [facility] BUN 11 8 - 25 mg/dL [facility] Creatinine 1.00 0.60 - 1.10 mg/dL [facility] Glucose 285(H) 70 - 199 mg/dL [facility] Comment: Interpretive Data Fasting glucose >/= [...] 2017. Calcium 9.1 8.5 - 10.3 mg/dL [facility] Bilirubin, total 0.3 0.1 - 1.2 mg/dL [facility] Protein, pl 6.4(L) 6.5 - 8.5 g/dL [facility] Albumin 3.9 3.5 - 5.0 g/dL [facility] Alk phos 83 40 - 130 Units/L [facility] ALT 18 7 - 45 Units/L [facility] AST 27 10 - 45 Units/L [facility] Blood specimen (specimen) 07/23/2018 11:16 AM CDT 07/23/2018 11:16 AM CDT [facility]ative [facility] - 07/23/2018 11:45 AM CDT Abbi Ventura MD LAB BLOOD ORDERABLES Final Resul t [facility] Department [place] [address] * (ABNORMAL) CBC with auto differential (07/23/2018 11:16 AM CDT) WBC 10.0(H) 3.8 - 9.9 K/cumm [facility] Hgb 8.6(L) 11.9 - 15.5 g/dL [facility] Hct 25.3(L) 35.6 - 45.5 % [facility] Plt 115(L) 150 - 400 K/cumm [facility] MPV 9.8 9.1 - 12.3 fL [facility] RBC 2.57(L) 3.90 - 5.20 M/cumm [facility] MCV 98.4(H) 81.3 - 96.4 fL [facility] MCH 33.5(H) 27.1 - 33.3 pg [facility] MCHC 34.0 32.3 - 35.7 g/dL [facility] RDW CV 13.3 11.1 - 14.9 % [facility] RDW SD 47.4 35.7 - 48.1 fL [facility] NRBC abs 0.07(H) 0.00 - 0.01 K/cumm [facility] Blood specimen (specimen) 07/23/2018 11:16 AM CDT 07/23/2018 11:16 AM CDT N[facility]ative [facility] - 07/23/2018 11:20 AM CDT us Abbi Ventura MD LAB BLOOD ORDERABLES Final Resul t [facility] Department [place] [address] documented in this encounter Visit Diagnoses Diagnosis [...] End Da te potassium chloride ER (KLOR-CON,K-DUR) 20 mEq CR tablet Take 1 tablet (20 mEq total) by mouth daily. 03/25/2018 07/09/2018 documented as of this encounter Orders Appointment Requests Count Last Ordered Date Fi rst Ordered Date ONCBCN CLINIC APPOINTMENT REQUEST 2 019 07/09/2018 ONCBCN LAB APPOINTMENT 1 07/23/2018 ONCBCN RETURN CHEMO 2HRS 1 07/23/2018 documented in this encounter Care Teams Behavioral Health Professional Relationship Specialty Start Date End Date Ravi Smith MD PCP - General 11/04/17 09/27/21 Aft, Kianna Machado MD PhD [address] [place] [address] Surgeon Surgical Oncology 11/22/17 Santiago Gilbert MD [address] [place] [address] Refinery Operator Assistant Gastroenterology 11/22/17 documented as of this encounter
--- OUTSIDE RECORDS SUMMARY | 2024-04-24 13:49 | XMS_ITS | Encounter Summary ---
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) Procedures CT chest abdomen pelvis with contrast Jamaica Montoya NP Phone: tel: fax: [facility] Referral ID Status Reason Start Date Expiration Date Visits Re quested Visits Authorized [id number] Closed 05/21/2018 05/28/2018 1 1 M ROOM ATTENDANT Reason for Visit * MRI/CAT/PET Scan (Routine) - Closed Specialty Diagnoses / Procedures Referred By Contac t Referred To Contact Radiology Diagnoses 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) Procedures CT chest abdomen pelvis with contrast Jamaica Montoya NP Phone: tel: fax: [facility] Referral ID Status Reason Start Date Expiration Date Visits Re quested Visits Authorized [id number] Closed 05/21/2018 05/28/2018 1 1 Encounter Details Date Type Department Care Team (Latest Contact Info) Description 05/28/2018 11:07 AM STEAM ROOM ATTENDANT - 05/28/2018 11:59 PM STEAM ROOM ATTENDANT Hospital Encounter [facility] Radiology at [facility] [address] [place] [address] Jamaica Montoya, [employer] [address] [place] [address] [place] [id number] Malignant neoplasm of descending colon (CMS/HCC) Discharge [...] on file Legal Sex Female 1:06 AM STEAM ROOM ATTENDANT Gender Identity Not on file Sexual Orientation Not on file documented as of this encounter Medications at Time of Discharge ALPRAZolam (XANAX) 0.25 mg tablet Take 1 tablet (0.25 mg total) by mouth 3 (three) times a day as needed for anxiety 11/07/2017 al & mag hydroxide simethicone-diph enhydramine-lido eriberto-nystatin (MAGIC MOUTHWASH) suspension 3-6-0-1Indicatio ns:Chemotherapy- Induced Mucositis Swish and swallow 10 [...] for diarrhea. 60 tablet 3 03/14/2018 9 famotidine (PEPCID) 20 mg tablet Take 20 [...] packet 01/06/2018 9 potassium chloride ER (KLOR-CON,K-DUR) 20 mEq CR tablet Take 1 tablet (20 mEq total) by mouth daily. 30 tablet 3 03/25/2018 9 prochlorperazine (COMPAZINE) 10 mg tablet Take 1 tablet (10 mg total) by mouth every 6 (six) hours as needed for nausea. 30 tablet 3 01/31/2018 9 psyllium 0.52 gram capsuleIndicatio ns:constipation Take 1 capsule (0.52 g total) by mouth daily. In case of constipation 30 capsule 11 12/31/2017 9 rivaroxaban (XARELTO) 15 mg tabletIndication s:bilateral PE's Take 1 tablet (15 mg total) by mouth 2 (two) times a day for 14 days. 28 tablet 05/28/2018 9 venlafaxine XR (EFFEXOR-XR) 75 mg 24 hr capsule Take 1 capsule (75 mg total) by mouth daily. 30 capsule 11 02/20/2018 9 documented as of this encounter Discharge Disposition Disposition Code Departure Means Destination Discharge to home or self care documented in this encounter Plan of Treatment Not on file documented as of this encounter Procedures Procedure Name Priority Date/Time Associated Diagnosis Comments CT CHEST ABDOMEN PELVIS W CONTRAST Schedule Routine, Read Routine (OP Routine) 05/28/2018 11:34 AM STEAM ROOM ATTENDANT Malignant neoplasm of descending colon (CMS/HCC) documented in this encounter Results * CT chest abdomen pelvis with contrast (05/28/2018 11:34 AM STEAM ROOM ATTENDANT) Anatomical Region Laterality Modality Body N/A Computed Tomogra phy 05/28/2018 12:0 5 PM STEAM ROOM ATTENDANT Impressions 05/28/2018 12:15 PM STEAM ROOM ATTENDANT 1. Extensive acute pulmonary embolism as described above. ??Right lower extremity deep vein thrombosis. 2. ??No evidence of metastatic disease involving chest, abdomen or pelvis. The Critical results were discussed with Dr. Ventura by Dr. Lobo on 05/28/2018 at 12:02 PM. Dictated by: Aretha Lobo M.D. Electronically signed by: Juaquin Reyes M.D., MPH Narrative 05/28/2018 12:15 PM STEAM ROOM ATTENDANT EXAMINATION: ??Computed tomography of the chest, abdomen and pelvis with intravenous contrast HISTORY: Colon cancer TECHNIQUE: ??Transaxial computed tomographic images of the chest, abdomen and pelvis ??were obtained with intravenous contrast according to the standard protocol after the uneventful administration of 125 mL Opti-Ray 350 intravenous contrast. COMPARISON: 01/05/2018 FINDINGS: ?? Chest: There are filling defects involving the right main pulmonary artery, left lower lobe pulmonary artery, and segmental branches of the left upper lobe pulmonary arteries. ??These findings are compatible with pulmonary embolism. There is no suspicious pulmonary nodules. ??There is no axillary, supraclavicular, hilar or mediastinal lymphadenopathy. Heart is of normal size with no pericardial effusion. ??There is no evidence of right heart stranding. ??There is a right chest wall port catheter with the tip in the right atrium. Thoracic aorta is normal in course and caliber with atherosclerotic changes. Abdomen/Pelvis: There is diffuse hepatic steatosis. ??Gallbladder, pancreas spleen and adrenal glands are unremarkable. Both kidneys are symmetrically enhancing with no suspicious renal lesions. ??There is a scarring involving the cortex of the right kidney. ??There is no hydronephrosis. ??Urinary bladder, uterus and adnexa are unremarkable. There are postsurgical changes of partial left hemicolectomy. ??There is no evidence of recurrent disease. ??The anastomotic site is patent with no evidence of bowel obstruction. There is no free intraperitoneal fluid or air. There is atherosclerotic changes of the abdominal aorta. Note is made of feeding defect involving the right external iliac vein, compatible with deep vein thrombosis. Bone windows do not demonstrate any suspicious osseous lesions Procedure Note Juaquin Reyes MD - 05/28/2018 EXAMINATION: Computed tomography of the chest, abdomen and pelvis with intravenous contrast HISTORY: Colon cancer TECHNIQUE: Transaxial computed tomographic images of the chest, abdomen and pelvis were obtained with intravenous contrast according to the standard protocol after the uneventful administration of 125 mL Opti-Ray 350 intravenous contrast. COMPARISON: 01/05/2018 FINDINGS: Chest: There are filling defects involving the right main pulmonary artery, left lower lobe pulmonary artery, and segmental branches of the left upper lobe pulmonary arteries. These findings are compatible with pulmonary embolism. There is no suspicious pulmonary nodules. There is no axillary, supraclavicular, hilar or mediastinal lymphadenopathy. Heart is of normal size with no pericardial effusion. There is no evidence of right heart stranding. There is a right chest wall port catheter with the tip in the right atrium. Thoracic aorta is normal in course and caliber with atherosclerotic changes. Abdomen/Pelvis: There is diffuse hepatic steatosis. Gallbladder, pancreas spleen and adrenal glands are unremarkable. Both kidneys are symmetrically enhancing with no suspicious renal lesions. There is a scarring involving the cortex of the right kidney. There is no hydronephrosis. Urinary bladder, uterus and adnexa are unremarkable. There are postsurgical changes of partial left hemicolectomy. There is no evidence of recurrent disease. The anastomotic site is patent with no evidence of bowel obstruction. There is no free intraperitoneal fluid or air. There is atherosclerotic changes of the abdominal aorta. Note is made of feeding defect involving the right external iliac vein, compatible with deep vein thrombosis. Bone windows do not demonstrate any suspicious osseous lesions IMPRESSION: 1. Extensive acute pulmonary embolism as described above. Right lower extremity deep vein thrombosis. 2. No evidence of metastatic disease involving chest, abdomen or pelvis. The Critical results were discussed with Dr. Ventura by Dr. Lobo on 05/28/2018 at 12:02 PM. Dictated by: Aretha Lobo M.D. Electronically signed by: Juaquin Reyes M.D., MPH Jamaica Montoya [employer] IMG CT PROCEDURES Final Re sult documented [...] Units (5 mL), IV flush, Once, On Sat05/28/18 at 1200, For 1 dose Given 05/28/2018 11:42 AM STEAM ROOM ATTENDANT 500 Units Right Chest ioversol (OPTIRAY 350) syringe syringe 125 mL 125 mL, intravenous, Once in imaging, contrast, Starting on Sat05/28/18 at 1110, For 1 dose Given 05/28/2018 11:34 AM STEAM ROOM ATTENDANT 125 mL documented in this encounter Care Teams Metabolic Specialist Relationship Specialty Start Date End Date Ravi Smith MD PCP - General 11/04/17 09/27/21 Aft, Kianna Machado MD PhD [address] [place] [address] Surgeon Surgical Oncology 11/22/17 Santiago Gilbert MD [address] [place] [address] Windows Software Developer Gastroenterology 11/22/17 documented as of this encounter
--- OUTSIDE RECORDS SUMMARY | 2024-04-24 13:49 | XMS_ITS | Encounter Summary ---
Author Organization [facility] Address [address] [place] [address] Phone Care Team Providers Care Alining Inspector Name Role Phone Ravi Smith MD Primary Care Provider [phone] Aft, Kianna Machado MD PhD Unavailable [phone] Santiago Gilbert MD Unavailable [phone] Reason for Visit * Episode Based Medications (Routine) - Closed Specialty Diagnoses / Procedures Referred By Vijaya simpson Referred To Contact Oncology Diagnoses Malignant neoplasm of upper-inner quadrant of left breast in female, estrogen receptor negative (HCC) Encounter for person encountering health services Procedures ID DOXORUBIC HCL 10 MG VL CHEMO ID CYCLOPHOSPHAMIDE 100 MG INJ ID INJECTION, PEGFILGRASTIM 6MG ID PALONOSETRON HCL ID FOSAPREPITANT INJECTION Dose-Dense AC: DOXOrubicin (ADRIAMYCIN) / Cyclophosphamide) with Abbi Chavez MD [address] [place] [address] Phone: tel: fax: [facility] Oncology [address] [place] [address] Phone: tel: fax: Referral ID Status Reason Start Date Expiration Date Visits Re quested Visits Authorized [id number] Closed 06/25/2018 09/02/2018 1 36 Encounter Details Date Type Department Care Team (Late st Contact Info) Description 07/09/2018 1:00 PM PROPERTY ASSESSMENT MONITOR Infusion [facility] Oncology [address] [place] [address] Encounter for person encountering health services (Primary [...] on file Legal Sex Female 1:06 AM PROPERTY ASSESSMENT MONITOR Gender Identity Not on file Sexual Orientation Not on file documented as of this encounter Nursing Notes * Yolette Meyers RN - 07/09/2018 1:00 PM CST Tolerated treatment without difficulty. Patient had problems with mouth sores with last treatment. Pt to try warm salt water and magic mouthwash. ERTY ASSESSMENT MONITOR ERTY ASSESSMENT MONITOR documented in this encounter Plan of [...] Action Date Dose Rate Site cyclophosphamide (CYTOXAN) 1,356 mg in sodium chloride 0.9% 250 mL IVPB 1,356 mg (600 mg/m2 ? 2.26 m2 Treatment Plan BSA from Recorded weight), intravenous, at 635.6 mL/hr, Administer over 30 Minutes, Once, On Sat07/09/18 at 1500, For 1 dose, IrritantIndications:E ncounter for person encountering health services,Malignant neoplasm of upper-inner quadrant of left breast in female, estrogen receptor negative (HCC) New Bag 07/09/2018 2:09 PM PROPERTY ASSESSMENT MONITOR 1,356 mg 635.6 mL/hr dexamethasone (DECADRON) 10 mg in sodium chloride 0.9% 50 mL IVPB 10 mg, intravenous, at 153 mL/hr, Administer over 20 Minutes, Once, On Sat07/09/18 at 1400, For 1 doseIndications:Encount er for person encountering health services,Malignant neoplasm of upper-inner quadrant of left breast in female, estrogen receptor negative (HCC) New 07/09/2018 1:24 PM PROPERTY ASSESSMENT MONITOR 10 mg 153 mL/hr DOXOrubicin (ADRIAMYCIN) 2 mg/mL IV syringe 135.6 mg 67.8 mL 135.6 mg (60 mg/m2 ? 2.26 m2 Treatment Plan BSA from Recorded weight), intravenous, at 406.8 mL/hr, Administer over 10 Minutes, Once, On Sat07/09/18 at 1430, For 1 dose, DOXOrubicin is a vesicant. [...] in female, estrogen receptor negative (HCC) New 07/09/2018 1:57 PM PROPERTY ASSESSMENT MONITOR 135.6 mg 406.8 mL/hr fosaprepitant (EMEND) 150 mg in sodium chloride 0.9% 150 mL IVPB 150 mg, intravenous, at 450 mL/hr, Administer over 20 Minutes, Once, On Sat07/09/18 at 1400, For 1 doseIndications:Encount er for person encountering health services,Malignant neoplasm of upper-inner quadrant of left breast in female, estrogen receptor negative (HCC) New 07/09/2018 1:28 PM PROPERTY ASSESSMENT MONITOR 150 mg 450 mL/hr palonosetron injection 250 mcg 250 mcg (0.25 mg), intravenous, Once, On Sat07/09/18 at 1400, For 1 dose, For IV push, administer over 30 seconds.Indications:Enc ounter for person encountering health services,Malignant neoplasm of upper-inner quadrant of left breast in female, estrogen receptor negative (HCC) Given 07/09/2018 1:24 PM PROPERTY ASSESSMENT MONITOR 250 mcg pegfilgrastim (NEULASTA ON-BODY) injection 6 mg 6 mg, subcutaneous, Once, On Sat07/09/18 at 1400, For 1 dose, Attach to the patient as directed following the completion of chemotherapy - to be given OUTPATIENT only Refrigerate. ON-PRO deviceIndications:Encou nter for person encountering health services,Malignant neoplasm of upper-inner quadrant of left breast in female, estrogen receptor negative (HCC) Given 07/09/2018 2:10 PM PROPERTY ASSESSMENT MONITOR 6 mg Right Lower Abdomen documented in this encounter Orders Nursing Count Last Ordered Date First Orde red Date ONCBCN TREATMENT PARAMETERS 6 1 07/09/2018 Appointment Requests Count Last Ordered Date Fi rst Ordered Date ONCBCN RETURN CHEMO 2HRS 1 07/09/2018 documented in this encounter Care Teams Alining Inspector Relationship Specialty Start Date End Date Ravi Smith MD PCP - General 11/04/17 09/27/21 Aft, Kianna Machado MD PhD [address] [place] [address] Surgeon Surgical Oncology 11/22/17 Santiago Gilbert MD [address] [place] [address] Pest Control Service Technician Gastroenterology 11/22/17 documented as of this encounter
--- OUTSIDE RECORDS SUMMARY | 2024-04-24 13:49 | XMS_ITS | Encounter Summary ---
Author Organization [facility] Address [address] [place] [address] Phone Care Team Providers Care Diamond Sorter Name Role Phone Ravi Smith MD Primary Care Provider [phone] Aft, Kianna Machado MD PhD Unavailable [phone] Santiago Gilbert MD Unavailable [phone] Reason for Visit * Cardiology (Routine) - Closed Specialty Diagnoses / Procedures Referred By Contronny t Referred To Contact Diagnoses Malignant neoplasm of upper-inner quadrant of left breast in female, estrogen receptor negative (HCC) Procedures Transthoracic Echo Complete W Doppler/CF Abbi Ventura MD Phone: tel: fax: [facility] (All Locations) Referral ID Status Reason Start Date Expiration Date Visits Re quested Visits Authorized [id number] Closed 06/04/2018 12/14/2019 1 1 Encounter Details Date Type Department Care Team (Latest Contact Info) Description 06/24/2018 11:00 AM CORRECTIVE THERAPY AIDE Ancillary Procedure [facility] Cardiology [address] [facility] [address] [place] [address] Malignant neoplasm of upper-inner quadrant of left [...] on file Legal Sex Female 1:06 AM CORRECTIVE THERAPY AIDE Gender Identity Not on file Sexual Orientation Not on file documented as of this encounter Plan of Treatment Not on file documented as of this encounter Procedures Procedure Name Priority Date/Time Associated Diagnosis Comments TRANSTHORACIC ECHO (TTE) COMPLETE W DOPPLER/CF WO CONTRAST Routine 06/24/2018 11:33 AM CORRECTIVE THERAPY AIDE Malignant 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, 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) documented in this encounter Results * TRANSTHORACIC ECHO (TTE) COMPLETE W DOPPLER/CF WO CONTRAST (06/24/2018 11:33 AM CORRECTIVE THERAPY AIDE) Anatomical Region Laterality Modality Ultrasound 06/24/2018 11:0 0 AM CORRECTIVE THERAPY AIDE Narrative 06/24/2018 3:00 PM CORRECTIVE THERAPY AIDE Patient name: Aleah Gerber Date of test: 06/24/2018 Type of test: TTE w/Doppler [facility] #: [id number] Date of : 1955 (F) Security Control Center Operator: Olivia Narayanan [facility] RVT Referring Physician: ABBI VENTURA MD Contrast Agent: Contrast Administered by: Supervised/Interpreted by: Ronny Reed MD Diagnosis: Pre-Treatment Baseline Location: [facility] Reason for test: Pre-Treatment Baseline, Left Breast cancer MV Structure: Normal, ?MV Motion: Normal, ?? [...] Variable ?2D Linear Normal ? Aotic Root: 2.9 cm ?<3.6 ? Ao Indexed: 1.3 cm/M2 <2.0 ? LA: ? 3.6 cm ?<3.8 ? RV: ? 2.8 cm ?<4.2 ? LV(ED): ? 5.1 cm ?<5.3 ? LV(ES): ? 3.6 cm ?<3.5 ?2D Vol. ?? Normal ?Indexed ?? Indexed Normal RA: ? 12.0 ml ? 5.5 ml/M2 ? 9-33 ? LA: ? 25.0 ml ? 11.4 ml/M2 ?16-34 ? RV: ? <11.6 ? LV(ED): ? 72.0 ml ?? 46-106 ?32.9 ml/M2 ?<62 ? LV(ES): ? 25.0 ml ?? 14-42 ? 11.4 ml/M2 ?<25 ?3D Vol. ? Indexed Normal LV(ED): ?<62 ? LV(ES): ?<24 ? LV EF: 65 % ?? (Normal: >=54%) ?? LV Septum: 1.0 cm ?(Normal: <0.9 cm) Wall Motion Scoring (1=Normal 2=Hypo 3=Akinetic 4=Dyskin./Aneurysm 0=Not visualized) Parasternal Long Bradford:MAS=1 BAS=1 MP=1 BP=1 Parasternal Short Bradford:MAS=1 MS=1 MO=1 MP=1 ML=1 MA=1 Apical 4 Chambers:=1 MS=1 BS=1 BL=1 MO=1 AL=1 Apical 2 Chambers:AI=1 MO=1 BI=1 BA=1 MA=1 AA=1 LV Global Longitudinal Strain: -20.6% ??(Normal <-19%) RV Global Longitudinal Strain: LV Function: Normal LV Ejection Fraction, ??(EF=54-74%) RV Function: Normal Septal Motion: Normal Pericardial Effusion: none seen Atrial Septum: Normal DOPPLER/COLOR FOLOW DOPPLER RESULTS: Diastolic Function: Normal Tricuspid Valve: normal TV Pulmonic Valve: Mild MS AV Regurgitation: No AR seen AV Stenosis: no AV Area: ??cm2 AV Pressure Gradient (mmHg): Mean: 0, Peak:0 MV Regurgitation: No MR seen MV Stenosis: no MS MV Area: ??cm2 MV Pressure Gradient (mmHg): Mean: 0 MV ERO: ??cm Regurg. Vol.: ??ml/beat Regurg. Frac.: ??% PA Pressure: ??mmHg DOPPLER/COLOR FOLOW DOPPLER COMMENTS: No AR seen, No MR seen, no , no MS, normal TV, Mild MS. Diastolic function: Normal SUMMARY: LA is normal. Normal RV cavity size and function; EF=65%. LV cavity size is normal. Normal LV wall thickness/mass and normal LVF; EF=65%. Normal Inferior vena cava. Normal aorta. No previous study Confirmed on ??06/24/2018 - 15:00:45 by Ronny Reed MD By signing this report, the attending sales assistant entertainment and media certifies that he or she has personally supervised and interpreted the echocardiogram and has reviewed and or edited and agrees with the written comments contained within the report. Procedure Note Ronny Reed MD - 06/24/2018 Patient name: Aleah Gerber Date of test: 06/24/2018 Type of test: TTE /[facility] #: [id number] Date of : 1955 (F) Security Control Center Operator: Olivia Narayanan [facility] RV[facility] Referring Physician: ABIB VENTURA MD Contrast Agent: Contrast Administered by: Supervised/Interpreted by: Ronny Reed MD Diagnosis: Pre-Treatment Baseline Location: [facility] Reason for test: Pre-Treatment Baseline, Left Breast cancer MV Structure: Normal, MV Motion: Normal, Mitral Annulus: Normal AV Structure: tricuspid and is Normal, AV Motion: Normal Aotic root: Normal, TM: Normal, PV: Normal Valvular Vegetations: none seen, Mass/Thrombi: none seen RA: Normal Measurements: M-Mode Normal Aotic Root: <3.8 LA: <3.8 RV: <2.8 LV(ED): <5.7 LV(ES): Variable 2D Linear Normal Aotic Root: 2.9 cm <3.6 Ao Indexed: 1.3 cm/M2 <2.0 LA: 3.6 cm <3.8 RV: 2.8 cm <4.2 LV(ED): 5.1 cm <5.3 LV(ES): 3.6 cm <3.5 2D Vol. Normal Indexed Indexed Normal RA: 12.0 ml 5.5 ml/M2 9-33 LA: 25.0 ml 11.4 ml/M2 16-34 RV: <11.6 LV(ED): 72.0 ml 46-106 32.9 ml/M2 <62 LV(ES): 25.0 ml 14-42 11.4 ml/M2 <25 3D Vol. Indexed Normal LV(ED): <62 LV(ES): <24 LV EF: 65 % (Normal: >=54%) LV Septum: 1.0 cm (Normal: <0.9 cm) Wall Motion Scoring (1=Normal 2=Hypo 3=Akinetic 4=Dyskin./Aneurysm 0=Not visualized) Parasternal Long Bradford:MAS=1 BAS=1 MP=1 BP=1 Parasternal Short Bradford:MAS=1 MS=1 MO=1 MP=1 ML=1 MA=1 Apical 4 Chambers:=1 MS=1 BS=1 BL=1 MO=1 AL=1 Apical 2 Chambers:AI=1 MO=1 BI=1 BA=1 MA=1 AA=1 LV Global Longitudinal Strain: -20.6% (Normal <-19%) RV Global Longitudinal Strain: LV Function: Normal LV Ejection Fraction, (EF=54-74%) RV Function: Normal Septal Motion: Normal Pericardial Effusion: none seen Atrial Septum: Normal DOPPLER/COLOR FOLOW DOPPLER RESULTS: Diastolic Function: Normal Tricuspid Valve: normal TV Pulmonic Valve: Mild MS AV Regurgitation: No AR seen AV Stenosis: no AV Area: cm2 AV Pressure Gradient (mmHg): Mean: 0, Peak:0 MV Regurgitation: No MR seen MV Stenosis: no MS MV Area: cm2 MV Pressure Gradient (mmHg): Mean: 0 MV ERO: cm Regurg. Vol.: ml/beat Regurg. Frac.: % PA Pressure: mmHg DOPPLER/COLOR FOLOW DOPPLER COMMENTS: No AR seen, No MR seen, no , no MS, normal TV, Mild MS. Diastolic function: Normal SUMMARY: LA is normal. Normal RV cavity size and function; EF=65%. LV cavity size is normal. Normal LV wall thickness/mass and normal LVF; EF=65%. Normal Inferior vena cava. Normal aorta. No previous study Confirmed on 06/24/2018 - 15:00:45 by Ronny Reed MD By signing this report, the attending sales assistant entertainment and media certifies that he or she has personally supervised and interpreted the echocardiogram and has reviewed and or edited and agrees with the written comments contained within the report. us Abbi Ventura MD CV ECHO PROCEDURES Final Result documented in this encounter Visit Diagnoses Diagnosis Malignant neoplasm of upper-inner quadrant of left breast in female, estrogen receptor negative (HCC) documented in this encounter Care Teams Diamond Sorter Relationship Specialty Start Date End Date Ravi Smith MD PCP - General 11/04/17 09/27/21 Aft, Kianna Machado MD PhD [address] [place] [address] Surgeon Surgical Oncology 11/22/17 Santiago Gilbert MD [address] [place] [address] Special Education Supervisor Gastroenterology 11/22/17 documented as of this encounter
--- OUTSIDE RECORDS SUMMARY | 2024-04-24 13:49 | XMS_ITS | Encounter Summary ---
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 Worse week after chemotherapy. PS CARETAKER Encounter Details Date Type Department Care Team (Late st Contact Info) Description 05/21/2018 Orders Only [facility] Oncology [address] [place] [address] Abbi Ventura MD [address] [place] [address] Malignant neoplasm of descending colon [...] on file Legal Sex Female 1:06 AM LAWN CARETAKER Gender Identity Not on file Sexual Orientation Not on file documented as of this encounter Plan of Treatment Scheduled Referrals Name Type Priority Associated Diagnoses Order Schedule Ambulatory referral to Neurology Outpatient Referral Routine Malignant neoplasm of descending colon (CMS/HCC) Malignant neoplasm of upper-inner quadrant of left breast in female, 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) Expected: 05/28/2018 (Approximate), Expires: 11/18/2018 documented as of this encounter Visit Diagnoses Diagnosis Malignant neoplasm of descending colon (CMS/HCC) (HCC)- Primary Malignant neoplasm 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, estrogen receptor negative (HCC) documented in this encounter Care Teams Store Leader Relationship Specialty Start Date End Date Ravi Smith MD PCP - General 11/04/17 09/27/21 Aft, Kianna Machado MD PhD [address] [place] [address] Surgeon Surgical Oncology 11/22/17 Santiago Gilbert MD [address] [place] [address] Still Tender Gastroenterology 11/22/17 documented as of this encounter
--- OUTSIDE RECORDS SUMMARY | 2024-04-24 13:49 | XMS_ITS | Encounter Summary ---
Author Organization [facility] Address [address] [place] [address] Phone Care Team Providers Care Figure Skater Name Role Phone Ravi Smith MD Primary Care Provider [phone] Aft, Kianna Machado MD PhD Unavailable [phone] Santiago Gilbert MD Unavailable Reason for Referral * Cardiology (Routine) - Closed Specialty Diagnoses / Procedures Referred By Vijaya simpson Referred To Contact Diagnoses Malignant neoplasm of upper-inner quadrant of left breast in female, estrogen receptor negative (HCC) Procedures Transthoracic Echo Complete W Doppler/CF Birdie Ventura MD Phone: tel: fax: [facility] (All Locations) Referral ID Status Reason Start Date Expiration Date Visits Re quested Visits Authorized [id number] Closed 06/04/2018 12/14/2019 1 1 ICAL ANALYTICAL SAMPLER Reason for Visit * Oncology (Routine) - Closed Specialty Diagnoses / Procedures Referred By Vijaya t Referred To Contact Medical Oncology / Oncology Diagnoses 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 Ventura to discuss TC Procedures ONCBCN CLINIC APPOINTMENT REQUEST RETURN [place] Montoya, KAM [address] [place] [address] [address] Phone: tel: fax:[phone] Birdie Ventura MD [address] [place] [address] Phone: tel: fax: Referral ID Status Reason Start Date Expiration Date V isits Requested Visits Authorized [id number] Closed Specialty Services Required 06/04/2018 05/05/2019 99 99 Encounter Details Date Type Department Care Team (Late st Contact Info) Description 06/04/2018 8:45 AM CHEMICAL ANALYTICAL SAMPLER Office Visit [facility] Oncology [address] [place] [address] Birdie Ventura MD [address] [place] [address] Malignant neoplasm of upper-inner quadrant [...] on file Legal Sex Female 1:06 AM CHEMICAL ANALYTICAL SAMPLER Gender Identity Not on file Sexual Orientation Not on file documented as of this encounter Last Filed Vital Signs Vital Sign Reading Time Taken Comments Blood Pressure 125/77 06/04/2018 8:51 AM CHEMICAL ANALYTICAL SAMPLER Pulse 131 06/04/2018 8:51 AM CHEMICAL ANALYTICAL SAMPLER Temperature 36.6 ??C (97.9 ??F) 06/04/2018 8:51 AM CS T Respiratory Rate 18 06/04/2018 8:51 AM CHEMICAL ANALYTICAL SAMPLER Oxygen Saturation 98% 06/04/2018 8:51 AM CHEMICAL ANALYTICAL SAMPLER Inhaled Oxygen Concentration - - Weight 106.6 kg (235 lb) 06/04/2018 8:51 AM CHEMICAL ANALYTICAL SAMPLER Height 172.7 cm (5' 8 ) 06/04/2018 8:51 AM CHEMICAL ANALYTICAL SAMPLER Body Mass Index 35.73 06/04/2018 8:51 AM CHEMICAL ANALYTICAL SAMPLER documented in this encounter Progress Notes * Birdie Ventura MD - 06/04/2018 8:45 AM CST Patient Identifying Data: Aleah Gerber [...] chemotherapy with 5FU/LV on 05/21/18 Interval History Tolerating Xarelto well. Had questions regarding DVT/PE and she had sent us a portal message. She says that she has neuropathy in hands and feet affecting her fine motor function in hands and she still has to stop periodically when she walks. She feels stiff in her hands and legs. She has numbness in her hands. No other concerns. Review of Systems Review of systems positive for symptoms as per interval history. All other review of systems negative. Objective Vitals: Vitals BP 125/77 (BP Location: Right arm) Pulse (!) 131 Temp 36.6 ??C (97.9 ??F) (Oral) Resp 18 Ht 172.7 cm (5' 8 ) Wt 106.6 kg (235 lb) SpO2 98% BMI 35.73 kg/m?? PERFORMANCE STATUS: ECOG 1 SKIN: Normal [...] aredisplayed. Labs - Hematology Latest Ref Range 04/23/18 05/07/18 05/21/18 06/04/18 WBC 3.8 - 9.9 K/cumm 3.6 (A) 3.3 (A) 4.8 6.3 Total Hb, POC 11.9 - 15.5 g/dL 9.8 (A) 9.6 (A) 9.5 (A) 10.4 (A) Hct 35.6 - 45.5 % 29.3 (A) 27.9 (A) 28.0 (A) 30.4 (A) Plt 150 - 400 K/cumm 80 (A) 84 (A) 87 (A) 118 (A) Neutrophil abs 1.7 - 6.5 K/cumm 1.8 1.6 (A) 3.0 3.8 (A) Abnormal value Chemistry Component Value Date/Time SODIUM 137 06/04/2018 0830 POTASSIUM 3.4 06/04/2018 0830 CHLORIDE 101 06/04/2018 0830 CO2 22 06/04/2018 0830 BUNSER 18 06/04/2018 0830 CREATININE 0.88 06/04/2018 0830 GLUCOSE 385 (H) 06/04/2018829 Component Value Date/Time CALCIUM 9.6 06/04/2018 0830 ALKPHOS 98 06/04/2018 0830 AST 46 (H) 06/04/201830 ALT 47 (H) 06/04/2018 0830 BILITOT 0.5 06/04/2018 0830 Tumor Marker History Some values may be hidden. Unless noted otherwise, only the newest values recorded on each date aredisplayed. Tumor Markers Latest Ref Range 03/19/18 04/09/18 05/07/18 05/21/18 CEA <=5.0 ng/mL 4.8 4.2 5.0 4.0 Comments are available for some flowsheets but are not being displayed. Recent labs, radiology and pathology reviewed in [facility]: T4bN0 disease, Stage IIC colon adenocarcinoma: Completed adjuvant chemotherapy. She has residual grade 2 sensory/motor neuropathy. 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 D/w Dr. uBnch about re-excision surgery and she feels that it would be better to proceed with chemotherapy and delaying surgery with recent diagnosis of DVT/PE. It would be hard to stop anticoagulation therapy at this point for surgery. Given her neuropathy, I discussed with her about proceeding with AC chemotherapy x 4 cyclesinstead of TC chemotherapy. I have explained the side effects of adriamycin, cytoxan, including butnot limited to low white cell count that can lead to life threatening infections, low hemoglobin leading to shortness of breath and fatigue, low platelet count leading to bleeding risk, hair loss, fat igue, mouth sores, lack of taste sensation,lack of appetite, nausea, vomiting, diarrhea, constipation, cardiac dysfunction that can be permanent in some patients, heart attack, elevated liver enzymes, acute leukemia, myelodysplastic syndrome, and allergic reactions. Pamphlets on the drugs explaining side effects in detail was given to the patient. MyRisk panel is positive for BRCA2 mutation, and VUS in BRIP1 and NBN: patient wants to hold off prophylactic mastectomy at this point. Prophylactic BSO will be considered in the future. Depression/anxiety: follow up with Dr. Simms Tachycardia: we did EKG during last visit and it was sinus tachycardia. 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 I answered her questions on why we did not admit her as well as questions regarding travel. PLAN: Patient wants to hold off chemotherapy for breast cancer today. She is going on vacation and feels strongly that she needs a mental break from cancer before proceeding with breast cancer chemotherapy. She wants to RTC on 06/25/18 to start AC chemotherapy. She will have baseline ECHO heart before starting AC chemotherapy We have d/w PCP office and he is going to see patient today for diabetes. RTC on 06/25/18 to start AC chemotherapy. Birdie Ventura MD Import/Export Specialistrefinery operator crude unit Division of Oncology Section of Medical Oncology [facility] [employer] Assistant Associate Professor completed by using M*Modal Fluency Direct speaking software, therefore, transcriptionvariances may occur. ICAL ANALYTICAL SAMPLER documented in this encounter Plan of Treatment Not on file documented as of this encounter Results * (ABNORMAL) Comprehensive metabolic panel (06/25/2018 9:13 AM CHEMICAL ANALYTICAL SAMPLER) Sodium 141 135 - 145 mmol/L [facility] Potassium, pl 4.1 3.3 - 4.9 mmol/L [facility] Chloride 107 97 - 110 mmol/L [facility] CO2 26 22 - 32 mmol/L [facility] Anion gap 8 2 - 15 mmol/L [facility] BUN 15 8 - 25 mg/dL [facility] Creatinine 0.87 0.60 - 1.10 mg/dL [facility] Glucose 229(H) 70 - 199 mg/dL [facility] Comment: Interpretive Data Fasting glucose >/= 126 [...] 2017. Calcium 9.4 8.5 - 10.3 mg/dL [facility] Bilirubin, total 0.3 0.1 - 1.2 mg/dL [facility] Protein, pl 6.3(L) 6.5 - 8.5 g/dL [facility] Albumin 3.7 3.5 - 5.0 g/dL [facility] Alk phos 76 40 - 130 Units/L [facility] ALT 29 7 - 45 Units/L [facility] AST 42 10 - 45 Units/L [facility] Blood specimen (specimen) 06/25/2018 9:13 AM CHEMICAL ANALYTICAL SAMPLER 06/25/2018 9:15 AM CHEMICAL ANALYTICAL SAMPLER Narrative [facility] - 06/25/2018 9:[address] [facility] us Birdie Ventura MD LAB BLOOD ORDERABLES Final Resul t [facility] Department [place] [address] * (ABNORMAL) CBC with auto differential (06/25/2018 9:13 AM CHEMICAL ANALYTICAL SAMPLER) WBC 7.1 3.8 - 9.9 K/cumm [facility] Hgb 10.1(L) 11.9 - 15.5 g/dL [facility] Hct 31.3(L) 35.6 - 45.5 % [facility] Plt 181 150 - 400 K/cumm [facility] MPV 9.4 9.1 - 12.3 fL [facility] RBC 2.99(L) 3.90 - 5.20 M/cumm [facility] MCV 104.7(H) 81.3 - 96.4 fL [facility] MCH 33.8(H) 27.1 - 33.3 pg [facility] MCHC 32.3 32.3 - 35.7 g/dL [facility] RDW CV 14.2 11.1 - 14.9 % [facility] RDW SD 54.4(H) 35.7 - 48.1 fL [facility] NRBC abs 0.00 0.00 - 0.01 K/cumm [facility] Blood specimen (specimen) 06/25/2018 9:13 AM CHEMICAL ANALYTICAL SAMPLER 06/25/2018 9:15 AM CHEMICAL ANALYTICAL SAMPLER Narrative [facility] - 06/25/2018 9:19 AM CHEMICAL ANALYTICAL SAMPLER us Birdie Ventura MD LAB BLOOD ORDERABLES Final Resul t [facility] Department [place] [address] * TRANSTHORACIC ECHO (TTE) COMPLETE W DOPPLER/CF WO CONTRAST (06/24/2018 11:33 AM CHEMICAL ANALYTICAL SAMPLER) Anatomical Region Laterality Modality Ultrasound 06/24/2018 11:0 0 AM CHEMICAL ANALYTICAL SAMPLER Narrative 06/24/2018 3:00 PM CHEMICAL ANALYTICAL SAMPLER Patient name: Aleah Gerber Date of test: 06/24/2018 Type of test: TTE w/Doppler [facility] #: [id number] Date of : 1955 (F) Armored Vehicle Officer: Olivia Narayanan, [facility] RVT Referring Physician: BIRDIE VENTURA MD Contrast Agent: Contrast Administered by: Supervised/Interpreted by: Ronny Reed MD Diagnosis: Pre-Treatment Baseline Location: [facility] Reason for test: Pre-Treatment Baseline, Left Breast [...] 2=Hypo 3=Akinetic 4=Dyskin./Aneurysm 0=Not visualized) Parasternal Long [place]:MAS=1 BAS=1 MP=1 BP=1 Parasternal Short [place]:MAS=1 MS=1 WA=1 MP=1 ML=1 MA=1 Apical 4 Chambers:=1 MS=1 BS=1 BL=1 WA=1 AL=1 Apical 2 Chambers:AI=1 WA=1 BI=1 BA=1 MA=1 AA=1 LV Global Longitudinal Strain: -20.6% ??(Normal <-19%) RV Global Longitudinal Strain: LV Function: Normal LV Ejection Fraction, ??(EF=54-74%) RV Function: Normal Septal Motion: Normal Pericardial Effusion: none seen Atrial Septum: Normal DOPPLER/COLOR FOLOW DOPPLER RESULTS: Diastolic Function: Normal Tricuspid Valve: normal TV Pulmonic Valve: Mild ID AV Regurgitation: No AR seen AV Stenosis: [...] no , no MS, normal TV, Mild ID. Diastolic function: Normal SUMMARY: LA is normal. Normal RV cavity size and function; EF=65%. LV cavity size is normal. Normal LV wall thickness/mass and normal LVF; EF=65%. Normal Inferior vena cava. Normal aorta. No previous study Confirmed on ??06/24/2018 - 15:00:45 by Ronny Reed MD By signing this report, the attending reacher certifies that he or she has personally supervised and interpreted the echocardiogram and has reviewed and or edited and agrees with the written comments contained within the report. Procedure Note Ronny Reed MD - 06/24/2018 Patient name: Aleah Gerber Date of test: 06/24/2018 Type of test: TTE w/[facility] #: [id number] Date of : 1955 (F) Armored Vehicle Officer: Olivia Narayanan [facility] RVT Referring Physician: BIRDIE VENTURA MD Contrast Agent: Contrast Administered by: Supervised/Interpreted by: Ronny Reed MD Diagnosis: Pre-Treatment Baseline Location: [facility] Reason for test: Pre-Treatment Baseline, Left Breast [...] 2=Hypo 3=Akinetic 4=Dyskin./Aneurysm 0=Not visualized) Parasternal Long [place]:MAS=1 BAS=1 MP=1 BP=1 Parasternal Short [place]:MAS=1 MS=1 WA=1 MP=1 ML=1 MA=1 Apical 4 Chambers:=1 MS=1 BS=1 BL=1 WA=1 AL=1 Apical 2 Chambers:AI=1 WA=1 BI=1 BA=1 MA=1 AA=1 LV Global Longitudinal Strain: -20.6% (Normal <-19%) RV Global Longitudinal Strain: LV Function: Normal LV Ejection Fraction, (EF=54-74%) RV Function: Normal Septal Motion: Normal Pericardial Effusion: none seen Atrial Septum: Normal DOPPLER/COLOR FOLOW DOPPLER RESULTS: Diastolic Function: Normal Tricuspid Valve: normal TV Pulmonic Valve: Mild ID AV Regurgitation: No AR seen AV Stenosis: [...] no , no MS, normal TV, Mild ID. Diastolic function: Normal SUMMARY: LA is normal. Normal RV cavity size and function; EF=65%. LV cavity size is normal. Normal LV wall thickness/mass and normal LVF; EF=65%. Normal Inferior vena cava. Normal aorta. No previous study Confirmed on 06/24/2018 - 15:00:45 by Ronny Reed MD By signing this report, the attending reacher certifies that he or she has personally [...] Date ON[facility]N CLINIC APPOINTMENT REQUEST 2 019 06/04/2018 ONCBCN LAB APPOINTMENT 1 06/25/2018 ONCBCN RETURN CHEMO 2HRS 1 06/25/2018 documented in this encounter Care Teams Figure Skater Relationship Specialty Start Date End Date Ravi Smith MD PCP - General 11/04/17 09/27/21 Aft, Kianna Machado MD PhD [address] [place] [address] Surgeon Surgical Oncology 11/22/17 Santiago Gilbert MD [address] [place] [address] Donor Relations Officer Gastroenterology 11/22/17 documented as of this encounter
--- OUTSIDE RECORDS SUMMARY | 2024-04-24 13:49 | XMS_ITS | Encounter Summary ---
Author Organization [facility] Address [address] [place] [address] Phone Care Team Providers Care Concrete Technician Name Role Phone Ravi Smith MD Primary Care Provider [phone] Aft, Kianna Machado MD PhD Unavailable [phone] Santiago Gilbert MD Unavailable [phone] Encounter Details Date Type Department Care Team (Late st Contact Info) Description 05/29/2018 Orders Only [facility] Oncology [address] [place] [address] Abbi Ventura MD [address] [place] [address] Social History Tobacco Use Types Packs/Day Years Used Date Smoking Tobacco: Former Cigarettes 2015 Smokeless Tobacco: Never Alcohol Use Standard Drinks/Week Comments Yes 0 (1 standard drink = 0.6 oz pur e alcohol) socially Comments No Sex and Gender Information Value Date Recorded Sex Assigned at Not on file Legal Sex Female 1:06 AM INSTRUMENTATION DESIGNER Gender Identity Not on file Sexual Orientation Not on file documented as of this encounter Plan of Treatment Not on file documented as of this encounter Visit Diagnoses Not on filedocumented in this encounter Care Teams Concrete Technician Relationship Specialty Start Date End Date Ravi Smith MD PCP - General 11/04/17 09/27/21 Aft, Kianna Machado MD PhD [address] [place] [address] Surgeon Surgical Oncology 11/22/17 Santiago Gilbert MD [address] [place] [address] Sales Department Clerk Gastroenterology 11/22/17 documented as of this encounter
--- OUTSIDE RECORDS SUMMARY | 2024-04-24 13:49 | XMS_ITS | Encounter Summary ---
Author Organization [facility] Address [address] [place] [address] Phone Care Team Providers Care Debt Recovery Officer Name Role Phone Ravi Smith MD Primary Care Provider [phone] Kianna Bunch MD PhD Unavailable [phone] Santiago Gilbert MD Unavailable [phone] Encounter Details Date Type Department Care Team (Late st Contact Info) Description 05/21/2018 Orders Only [facility] Oncology [address] [place] [address] Fatemeh Zarate RN Social History Tobacco Use Types Packs/Day Years Used Date Smoking Tobacco: Former Cigarettes 2015 Smokeless Tobacco: Never Alcohol Use Standard Drinks/Week Comments Yes 0 (1 standard drink = 0.6 oz pur e alcohol) socially Comments No Sex and Gender Information Value Date Recorded Sex Assigned at Not on file Legal Sex Female 1:06 AM CRNA Gender Identity Not on file Sexual Orientation Not on file documented as of this encounter Plan of Treatment Not on file documented as of this encounter Visit Diagnoses Not on filedocumented in this encounter Discontinued Medications Medication Sig Discontinue Reason Start Date End Da te sertraline (ZOLOFT) 50 mg tablet Take 50 mg by mouth. Other 05/21/2018 documented as of this encounter Care Teams Debt Recovery Officer Relationship Specialty Start Date End Date Ravi Smith MD PCP - General 11/04/17 09/27/21 Aft, Kianna Machado MD PhD [address] [place] [address] Surgeon Surgical Oncology 11/22/17 Santiago Gilbert MD [address] [place] [address] Computerized Table Cutter Gastroenterology 11/22/17 documented as of this encounter
--- OUTSIDE RECORDS SUMMARY | 2024-04-24 13:49 | XMS_ITS | Encounter Summary ---
Author Organization [facility] Address [address] [place] [address] Phone Care Team Providers Care Market Risk Specialist Name Role Phone Ravi Smith MD Primary Care Provider [phone] Aft, Kianna Machado MD PhD Unavailable [phone] Santiago Gilbert MD Unavailable [phone] Reason for Visit * Reason Comments Chemotherapy * Episode Based Medications (Routine) - Closed Specialty Diagnoses / Procedures Referred By Vijaya simpson Referred To Contact Oncology Diagnoses Malignant neoplasm of upper-inner quadrant of left breast in female, estrogen receptor negative (HCC) Encounter for person encountering health services Procedures FL DOXORUBIC HCL 10 MG VL CHEMO FL CYCLOPHOSPHAMIDE 100 MG INJ FL INJECTION, PEGFILGRASTIM 6MG FL PALONOSETRON HCL FL FOSAPREPITANT INJECTION Dose-Dense AC: DOXOrubicin (ADRIAMYCIN) / Cyclophosphamide) with Abbi Chavez MD [address] [facility] [address] [place] [address] Phone: tel: fax: [facility] [address] [place] [address] Phone: tel: fax: Referral ID Status Reason Start Date Expiration Date Visits Re quested Visits Authorized [id number] Closed 06/25/2018 09/02/2018 1 36 Encounter Details Date Type Department Care Team (Late st Contact Info) Description 07/23/2018 1:00 PM CDT Infusion [facility] [address] [place] [address] Encounter for person encountering health services (Primary [...] on file 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 female who presents for chemotherapy cycle 3, day(s) 1 of AC (D1561). Pre-treatment nursing assessment: No problems identified upon assessment. Patient met treatment parameters Chemotherapy: Aleah Gerber tolerated treatment well. Post blood return: Brisk IV access post infusion: NS and Heparin 100 units/ml Patient Education Learner: Patient Readiness to learn: Acceptance Method: Explanation Treatment [...] reviewed with treatment plan. Discharge Mode: Ambulatory Accompanied by: Self and Friend Discharged To: Home documented in this encounter [...] mL/hr, Administer over 30 Minutes, Once, On Sat07/23/18 at 1515, For 1 dose, IrritantIndications:E ncounter for person encountering health services,Malignant neoplasm of upper-inner quadrant of left breast in female, estrogen receptor negative (HCC) New 07/23/2018 2:39 PM CDT 1,018 mg 601.8 mL/hr dexamethasone (DECADRON) 10 mg in sodium chloride 0.9% 50 mL IVPB 10 mg, intravenous, at 153 mL/hr, Administer over 20 Minutes, Once, On Sat07/23/18 at 1415, For 1 doseIndications:Encount er for person encountering health services,Malignant neoplasm of upper-inner quadrant of left breast in female, estrogen receptor negative (HCC) New 07/23/2018 1:38 PM CDT 10 mg 153 mL/hr DOXOrubicin (ADRIAMYCIN) 2 mg/mL IV syringe 101.8 mg 50.9 mL 101.8 mg (rounded from 101.7 mg = 45 mg/m2 ? 2.26 m2 Treatment Plan BSA from Recorded weight), intravenous, at 305.4 mL/hr, Administer over 10 Minutes, Once, On Sat07/23/18 at 1445, For 1 dose, DOXOrubicin is a vesicant. [...] in female, estrogen receptor negative (HCC) New 07/23/2018 2:27 PM CDT 101.8 mg 305.4 mL/hr fosaprepitant (EMEND) 150 mg in sodium chloride 0.9% 150 mL IVPB 150 mg, intravenous, at 450 mL/hr, Administer over 20 Minutes, Once, On Sat07/23/18 at 1415, For 1 doseIndications:Encount er for person encountering health services,Malignant neoplasm of upper-inner quadrant of left breast in female, estrogen receptor negative (HCC) New Bag 07/23/2018 1:59 PM CDT 150 mg 450 mL/hr heparin 100 unit/mL injection 500 Units 500 Units (5 mL), IV flush, As needed, Patients with ports only, instill prior to decanulation, Starting on Sat07/23/18 at 1340, Indications: Maintain Patency of Indwelling Vascular CatheterIndications:Chrissy douglas Patency of Indwelling Vascular Catheter Given 07/23/2018 3:23 PM CDT 500 Units palonosetron injection 250 mcg 250 mcg (0.25 mg), intravenous, Once, On Sat07/23/18 at 1415, For 1 dose, For IV push, administer over 30 seconds.Indications:Enc ounter for person encountering health services,Malignant neoplasm of upper-inner quadrant of left breast in female, estrogen receptor negative (HCC) Given 07/23/2018 1:38 PM CDT 250 mcg pegfilgrastim (NEULASTA ON-BODY) injection 6 mg 6 mg, subcutaneous, Once, On Sat07/23/18 at 1415, For 1 dose, Attach to the patient as directed following the completion of chemotherapy - to be given OUTPATIENT only Refrigerate. 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),Malignant neoplasm of upper-inner quadrant of left breast in female, estrogen receptor negative (HCC) Given 07/23/2018 1:40 PM CDT 10 mL documented in this encounter Orders Nursing Count Last Ordered Date First Orde red Date ONCBCN PROVIDER COMMUNICATION 1 9 ONCBCN TREATMENT PARAMETERS 6 1 07/23/2018 Appointment Requests Count Last Ordered Date Fi rst Ordered Date ONCBCN RETURN CHEMO 2HRS 1 07/23/2018 documented in this encounter Care Teams Market Risk Specialist Relationship Specialty Start Date End Date Ravi Smith MD PCP - General 11/04/17 09/27/21 Aft, Kianna Machado MD PhD [address] [place] [address] Surgeon Surgical Oncology 11/22/17 Santiago Gilbert MD [address] [place] [address] Hardware Manager Gastroenterology 11/22/17 documented as of this encounter
--- OUTSIDE RECORDS SUMMARY | 2024-04-24 13:49 | XMS_ITS | Encounter Summary ---
Author Organization [facility] Address [address] [place] [address] Phone Care Team Providers Care Local Hazmat Driver Name Role Phone Ravi Smith MD Primary Care Provider [phone] Kianna Bunch MD PhD Unavailable [phone] Santiago Gilbert MD Unavailable Reason for Referral * Diagnostic Imaging (Routine) - Closed Specialty Diagnoses / Procedures Referred By Contronny t Referred To Contact Diagnoses History of breast cancer Procedures US Breast Left Limited Kianna Bunch MD PhD Phone: tel: fax: [address] [address] Referral ID Status Reason Start Date Expiration Date Visits Re quested Visits Authorized [id number] Closed 07/22/2018 01/31/2020 1 1 Encounter Details Date Type Department Care Team (Late st Contact Info) Description 07/22/2018 Orders Only [facility] Surgery [address] [facility] [address] [place] [id number] Kianna Bunch MD PhD [address] [place], [place] [id number] History of breast cancer (Primary Dx) Social History Tobacco Use Types Packs/Day Years Used Date Smoking Tobacco: Former Cigarettes 1 973 2015 Smokeless Tobacco: Never Alcohol Use Standard Drinks/Week Comments Yes 0 (1 standard drink = 0.6 oz pur e alcohol) socially Comments No Sex and Gender Information Value Date Recorded Sex Assigned at Not on file 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 Elie Bradley. BREAST PARENCHYMAL [...] left breast was performed by a trained compliance testing analyst and by Dr. Elie Bradley. BREAST PARENCHYMAL [...] breast documented in this encounter Care Teams Local Hazmat Driver Relationship Specialty Start Date End Date Ravi Smith MD PCP - General 11/04/17 09/27/21 Aft, Kianna Machado MD PhD [address] [facility] [place], [place] [id number] Surgeon Surgical Oncology 11/22/17 Santiago Gilbert MD [address] [place], [place] [id number] Waterfront Director Gastroenterology 11/22/17 documented as of this encounter
--- OUTSIDE RECORDS SUMMARY | 2024-04-24 13:49 | XMS_ITS | Encounter Summary ---
Author Organization [facility] Address [address] [place] [address] Phone Care Team Providers Care Contract Officer Name Role Phone Ravi Smith MD Primary Care Provider [phone] Aft, Kianna Machado MD PhD Unavailable [phone] Santiago Gilbert MD Unavailable [phone] Reason for Visit * Reason Comments Chemotherapy * Episode Based Medications (Routine) - Closed Specialty Diagnoses / Procedures Referred By Vijaya simpson Referred To Contact Oncology Diagnoses Malignant neoplasm of upper-inner quadrant of left breast in female, estrogen receptor negative (HCC) Encounter for person encountering health services Procedures WV DOXORUBIC HCL 10 MG VL CHEMO W[place] CYCLOPHOSPHAMIDE 100 MG INJ WV INJECTION, PEGFILGRASTIM 6MG [place] PALONOSETRON HCL [place] FOSAPREPITANT INJECTION Dose-Dense AC: DOXOrubicin (ADRIAMYCIN) / Cyclophosphamide) with Abbi Chavez MD [address] [facility] [address] [place] [address] Phone: tel: fax: [facility] On[facility] [address] [place] [address] Phone: tel: fax: Referral ID Status Reason Start Date Expiration Date Visits Re quested Visits Authorized [id number] Closed 06/25/2018 09/02/2018 1 36 Encounter Details Date Type Department Care Team (Late st Contact Info) Description 06/25/2018 10:00 AM SANITATION ASSOCIATE Infusion [facility] Oncology [address] [place] [address] Malignant neoplasm of upper-inner quadrant of left breast in female, 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) (Primary Dx); Encounter for person encountering health services Social History Tobacco Use Types Packs/Day Years Used Date Smoking Tobacco: Former Cigarettes 2015 Smokeless Tobacco: Never Alcohol Use Standard Drinks/Week Comments Yes 0 (1 standard drink = 0.6 oz pur e alcohol) socially Comments No Sex and Gender Information Value Date Recorded Sex Assigned at Not on file Legal Sex Female 1:06 AM SANITATION ASSOCIATE Gender Identity Not on file Sexual Orientation Not on file documented as of this encounter Nursing Notes * Tiffany Pina RN - 06/25/2018 10:00 AM CST Pt arrived to pod for new tx of A/C. Port already accessed and labs reviewed. Teaching completed onnew drugs as well as neulasta OBI and pt aware of removal time. C/o SOB, LE edma. Remains on bloodthinner po for recent PE. 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 Tolerated tx very well. TATION ASSOCIATE documented in this encounter Plan of Treatment Not on file documented as of this encounter Visit Diagnoses Diagnosis Malignant neoplasm of upper-inner quadrant of left breast in female, estrogen receptor negative (HCC)- Primary Encounter for person encountering health services documented in this encounter Administered Medications Inactive Administered Medications - up to 3 most recent administrations Medication Order MAR Action Action Date Dose Rate Site cyclophosphamide (CYTOXAN) 1,356 mg in sodium chloride 0.9% 250 mL IVPB 1,356 mg (600 mg/m2 ? 2.26 m2 Treatment Plan BSA from Recorded weight), intravenous, at 635.6 mL/hr, Administer over 30 Minutes, Once, On Sat06/25/18 at 1230, For 1 dose, IrritantIndications:E ncounter for person encountering health services,Malignant neoplasm of upper-inner quadrant of left breast in female, estrogen receptor negative (HCC) New Bag 06/25/2018 12:18 PM SANITATION ASSOCIATE 1,356 mg 635.6 mL/hr dexamethasone (DECADRON) 10 mg in sodium chloride 0.9% 50 mL IVPB 10 mg, intravenous, at 153 mL/hr, Administer over 20 Minutes, Once, On Sat06/25/18 at 1145, For 1 doseIndications:Encount er for person encountering health services,Malignant neoplasm of upper-inner quadrant of left breast in female, estrogen receptor negative (HCC) New Bag 06/25/2018 11:09 AM SANITATION ASSOCIATE 10 mg 153 mL/hr DOXOrubicin (ADRIAMYCIN) 2 mg/mL IV syringe 135.6 mg 67.8 mL 135.6 mg (60 mg/m2 ? 2.26 m2 Treatment Plan BSA from Recorded weight), intravenous, at 406.8 mL/hr, Administer over 10 Minutes, Once, On Sat06/25/18 at 1200, For 1 dose, DOXOrubicin is a vesicant. [...] female, estrogen receptor negative (HCC) New Bag 06/25/2018 12:07 PM SANITATION ASSOCIATE 135.6 mg 406.8 mL/hr fosaprepitant (EMEND) 150 mg in sodium chloride 0.9% 150 mL IVPB 150 mg, intravenous, at 450 mL/hr, Administer over 20 Minutes, Once, On Sat06/25/18 at 1145, For 1 doseIndications:Encount er for person encountering health services,Malignant neoplasm of upper-inner quadrant of left breast in female, estrogen receptor negative (HCC) New Bag 06/25/2018 11:31 AM SANITATION ASSOCIATE 150 mg 450 mL/hr palonosetron injection 250 mcg 250 mcg (0.25 mg), intravenous, Once, On Sat06/25/18 at 1145, For 1 dose, For IV push, administer over 30 seconds.Indications:Enc ounter for person encountering health services,Malignant neoplasm of upper-inner quadrant of left breast in female, estrogen receptor negative (HCC) Given 06/25/2018 11:08 AM SANITATION ASSOCIATE 250 mcg pegfilgrastim (NEULASTA ON-BODY) injection 6 mg 6 mg, subcutaneous, Once, On Sat06/25/18 at 1145, For 1 dose, Attach to the patient as directed following the completion of chemotherapy - to be given OUTPATIENT only Refrigerate. ON-PRO deviceIndications:Encou nter for person encountering health services,Malignant neoplasm of upper-inner quadrant of left breast in female, estrogen receptor negative (HCC) Given 06/25/2018 12:26 PM SANITATION ASSOCIATE 6 mg Right Lower Abdomen documented in this encounter Orders Nursing Count Last Ordered Date First Orde red Date ONCBCN PROVIDER COMMUNICATION 1 1 9 ONCBCN TREATMENT PARAMETERS 5 1 06/25/2018 Appointment Requests Count Last Ordered Date Fi rst Ordered Date ONCBCN RETURN CHEMO 2HRS 06/25/2018 documented in this encounter Care Teams Contract Officer Relationship Specialty Start Date End Date Ravi Smith MD PCP - General 11/04/17 09/27/21 Aft, Kianna Machado MD PhD [address] [place] [address] Surgeon Surgical Oncology 11/22/17 Santiago Gilbert MD [address] [place] [address] Service Superintendent Gastroenterology 11/22/17 documented as of this encounter
--- OUTSIDE RECORDS SUMMARY | 2024-04-24 13:50 | XMS_ITS | Encounter Summary ---
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, estrogen receptor negative (HCC) Procedures IR Follow Up Outpatient IR Contrast Injection Evaluation Central Venous Access Device Abbi Ventura MD Phone: tel: fax: [facility] Referral ID Status Reason Start Date Expiration Date Visits Re quested Visits Authorized [id number] Closed 04/11/2018 10/21/2019 1 1 CULTURAL ADVISER Encounter Details Date Type Department Care Team (Late st Contact Info) Description 04/11/2018 Orders Only [facility] Oncology [address] [place] [address] Abbi Ventura MD [address] [facility] [facility] [address] [place] [address] Malignant neoplasm of descending colon (CMS/HCC) (Primary [...] on file Legal Sex Female 1:06 AM AGRICULTURAL ADVISER Gender Identity Not on file Sexual Orientation Not on file documented as of this encounter Plan of Treatment Not on file documented as of this encounter Results * IR Follow Up Outpatient (04/11/2018 12:45 PM AGRICULTURAL ADVISER) Anatomical Region Laterality Modality Ultrasound 04/11/2018 3:09 PM AGRICULTURAL ADVISER Impressions 04/11/2018 3:09 PM AGRICULTURAL ADVISER Sluggish flow in the port resolved with alteplase dwell. Port fully functional following this and the patient was reconnected to her pump without issue. Electronically signed by: Alex Arthur M.D. Narrative 04/11/2018 3:09 PM AGRICULTURAL ADVISER EXAMINATION: ??INTERVENTIONAL RADIOLOGY FOLLOW-UP VISIT REFERRAL: ??Dr. ABBI VENTURA has referred this patient for port malfunction. HISTORY: Patient is 8-year-old female with history of breast cancer ready surgical port placed in January 2018. Currently receiving chemotherapy through pump for her port. Yesterday was noted that the pump was malfunctioning and no blood return or flush was noted. There is also tenderness on the port site. An ultrasound performed to rule out a blood clot. She is here for port evaluation. ?? PROCEDURE: On physical examination the port site appeared normal without infiltration or erythema. There is no swelling at the port site. The nurse initially accessed the port and was unable to withdraw blood or flush, but after reaccessing at a slightly different area of the reservoir, she was able to obtain flow. The port was then infused with a slow drip of 2 mg alteplase. This was allowed to dwell for 45 minutes. After which the port was easily aspirated and flushed. The patient was then sent next door to the cancer center to have her pump reconnected, which was successful. ATTENDING PHYSICIAN ATTESTATION: ??I saw and evaluated this patient. I agree with the plan of care outlined above. Procedure Note Alex Arthur MD - 04/11/2018 EXAMINATION: INTERVENTIONAL RADIOLOGY FOLLOW-UP VISIT REFERRAL: Dr. ABBI VENTURA has referred this patient for port malfunction. HISTORY: Patient is 8-year-old female with history of breast cancer ready surgical port placed in January 2018. Currently receiving chemotherapy through pump for her port. Yesterday was noted that the pump was malfunctioning and no blood return or flush was noted. There is also tenderness on the port site. An ultrasound performed to rule out a blood clot. She is here for port evaluation. PROCEDURE: On physical examination the port site appeared normal without infiltration or erythema. There is no swelling at the port site. The nurse initially accessed the port and was unable to withdraw blood or flush, but after reaccessing at a slightly different area of the reservoir, she was able to obtain flow. The port was then infused with a slow drip of 2 mg alteplase. This was allowed to dwell for 45 minutes. After which the port was easily aspirated and flushed. The patient was then sent next door to the cancer center to have her pump reconnected, which was successful. ATTENDING PHYSICIAN ATTESTATION: I saw and evaluated this patient. I agree with the plan of care outlined above. IMPRESSION: Sluggish flow in the port resolved with alteplase dwell. Port fully functional following this and the patient was reconnected to her pump without issue. Electronically signed by: Alex Arthur M.D. Abbi Ventura MD [facility] IR PROCEDURES Final Result documented in this encounter [...] (HCC) documented in this encounter Care Teams Marble Installation Helper Relationship Specialty Start Date End Date Ravi Smith MD PCP - General 11/04/17 09/27/21 Aft, Kianna Machado MD PhD [address] [place] [address] Surgeon Surgical Oncology 11/22/17 Santiago Gilbert MD [address] [place] [address] Tripoler Gastroenterology 11/22/17 documented as of this encounter
--- OUTSIDE RECORDS SUMMARY | 2024-04-24 13:50 | XMS_ITS | Encounter Summary ---
Author Organization [facility] Address [address] [place] [address] Care Team Providers Care Produce Department Manager Name Role Phone Ravi Smith MD Primary Care Provider [phone] Aileent, Kianna Machado MD PhD Unavailable [phone] Santiago Gilbert MD Unavailable [phone] Encounter Details Date Type Department Care Team (Late st Contact Info) Description 04/11/2018 Orders Only Radiology [address] [place] [address] Alex Arthur MD [address] [facility] [address] [place], [place] [id number] Social History Tobacco Use Types Packs/Day Years Used Date Smoking Tobacco: Former Cigarettes 2015 Smokeless Tobacco: Never Alcohol Use Standard Drinks/Week Comments Yes 0 (1 standard drink = 0.6 oz pur e alcohol) socially Comments No Sex and Gender Information Value Date Recorded Sex Assigned at Not on file Legal Sex Female 1:06 AM ELEVATOR EXAMINER Gender Identity Not on file Sexual Orientation Not on file documented as of this encounter Plan of Treatment Not on file documented as of this encounter Visit Diagnoses Not on filedocumented in this encounter Care Teams Produce Department Manager Relationship Specialty Start Date End Date Ravi Smith MD PCP - General 11/04/17 09/27/21 Aft, Kianna Machado MD PhD [address] [place] [address] Surgeon Surgical Oncology 11/22/17 Santiago Gilbert MD [address] [place] [address] Safety Belt Installer Gastroenterology 11/22/17 documented as of this encounter
--- OUTSIDE RECORDS SUMMARY | 2024-04-24 13:50 | XMS_ITS | Encounter Summary ---
Author Organization [facility] Address [address] [place] [address] Phone Care Team Providers Care Monitoring Manager Name Role Phone Ravi Smith MD Primary Care Provider [phone] Aft, Kianna Machado MD PhD Unavailable [phone] Santiago Gilbert MD Unavailable [phone] Encounter Details Date Type Department Care Team (Latest Contact Info) Description 05/07/2018 Orders Only [facility] Scanning, Provider Social History Tobacco Use Types Packs/Day Years Used Date Smoking Tobacco: Former Cigarettes 2015 Smokeless Tobacco: Never Alcohol Use Standard Drinks/Week Comments Yes 0 (1 standard drink = 0.6 oz pur e alcohol) socially Comments No Sex and Gender Information Value Date Recorded Sex Assigned at Not on file Legal Sex Female 1:06 AM POLE CLIMBER Gender Identity Not on file Sexual Orientation Not on file documented as of this encounter Plan of Treatment Not on file documented as of this encounter Procedures Procedure Name Priority Date/Time Associated Diagnosis Comments CARDIOLOGY DOCUMENT SCAN 05/07/2018 documented in this encounter Results * SCAN - CARDIOLOGY (05/07/2018) Anatomical Region Laterality Modality Other us Provider Scanning CV CARDIAC SERVICES PROCEDURES Final Result documented in this encounter Visit Diagnoses Not on filedocumented in this encounter Care Teams Monitoring Manager Relationship Specialty Start Date End Date Ravi Smith MD PCP - General 11/04/17 09/27/21 Aft, Kianna Machado MD PhD [address] [place] [address] Surgeon Surgical Oncology 11/22/17 Santiago Gilbert MD [address] [place] [address] Customs Collector Gastroenterology 11/22/17 documented as of this encounter
--- OUTSIDE RECORDS SUMMARY | 2024-04-24 13:50 | XMS_ITS | Encounter Summary ---
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) Procedures [id number]: (Fluorouracil / Leucovorin / Oxaliplatin) 14 Day Cycles Abbi Ventura MD [address] [place] [address] [address] [place] [address] Phone: tel: fax: [facility] [address] [place] [id number] Phone: tel: Referral ID Status Reason Start Date Expiration Date Visits Re quested Visits Authorized [id number] Closed 01/31/2018 05/05/2019 1 18 Encounter Details Date Type Department Care Team (Late st Contact Info) Description 04/09/2018 11:15 AM SENIOR SQL SERVER DEVELOPER Infusion [facility] [address] [place] [address] 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); Dehydration; Malignant neoplasm of upper-inner quadrant of [...] file Legal Sex Female 1:06 AM SENIOR SQL SERVER DEVELOPER Gender Identity Not on file Sexual Orientation Not on file documented as of this encounter Nursing Notes * Evon Taylor - 04/09/2018 11:15 AM CST Pt tolerated her treatment without any issues, no complaints of any side effects during treatment. Pt knows to go to ED if any issues after she leaves here. Her son is with her. Pt left ambulatory. 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)- Primary Malignant neoplasm of descending colon Dehydration Malignant neoplasm of upper-inner quadrant of left breast in female, estrogen receptor negative (HCC) documented in this encounter Administered Medications Inactive Administered Medications - up to 3 most recent administrations Medication Order MAR Action Action Date Dose Rate Site dexamethasone (DECADRON) 10 mg in sodium chloride 0.9% 50 mL IVPB 10 mg, intravenous, at 153 mL/hr, Administer over 20 Minutes, Once, On Sat04/09/18 at 1230, For 1 doseIndications: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 2.32 m2 Treatment Plan BSA from Recorded weight), intravenous, at 2.4 mL/hr, Administer over 46 Hours, over 46 hours, First dose on Sat04/09/18 at 1530, FOR PUMP PROBLEMS CALL [phone] IrritantIndications:Raheel russo neoplasm of descending colon (CMS/HCC) (HCC) Given 04/09/2018 3:57 PM SENIOR SQL SERVER DEVELOPER 5,550 mg 2.4 mL/hr fluorouracil (ADRUCIL) IV syringe 925 mg 18.5 mL 925 mg (rounded from 928 mg = 400 mg/m2 ? 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 2.32 m2 Treatment Plan BSA from Recorded weight), intravenous, at 134.3 mL/hr, Administer over 2 Hours, Once, On Sat04/09/18 at 1300, For 1 dose, Run concurrently with oxaliplatin. Do not exceed rate of 160 mg/min. 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 2.32 m2 Treatment Plan BSA from Recorded weight), intravenous, at 134.8 mL/hr, Administer over 2 Hours, Once, On Sat04/09/18 at 1230, For 1 dose, Irritant with vesicant potential. 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) New Bag 04/09/2018 1:40 PM SENIOR SQL SERVER DEVELOPER 97.5 mg 134.8 mL/hr palonosetron injection 250 mcg 250 mcg (0.25 mg), intravenous, Once, On Sat04/09/18 at 1230, For 1 dose, For IV push, administer over 30 seconds.Indications:Maligna nt neoplasm of descending colon (CMS/HCC) (HCC) Given 04/09/2018 12:00 PM SENIOR SQL SERVER DEVELOPER 250 mcg sodium chloride 0.9% bolus 1,000 mL 1,000 mL, intravenous, at 666.7 mL/hr, Administer over 90 Minutes, Once, On Sat04/09/18 at 1245, For 1 dose, Please check orthostatic b/p pre and post infusion.Indications:Dehydr ation,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),Malignant neoplasm of upper-inner quadrant of left breast in female, estrogen receptor negative (HCC) New Bag 04/09/2018 12:00 PM SENIOR SQL SERVER DEVELOPER 1,000 mL 666.7 mL/hr documented in this encounter Orders Medications Ordered That Jefferson ht Not Have Been Administered Count Last Ordered Date First Ordered Date heparin 100 unit/mL injection 500 Units 1 1 06/10/2017 sodium chloride 0.9% flush 10 mL 1 04/09/20 Nursing Count Last Ordered Date First Orde red Date ONC NURSING COMMUNICATION NEUROPATHY 1 09/2017 ONCBCN TREATMENT PARAMETERS 2 1 04/09/2018 Appointment Requests Count Last Ordered Date Fi rst Ordered Date ONCBCN RETURN CHEMO 4HRS 1 04/09/2018 documented in this encounter Care Teams Smoke Control Supervisor Relationship Specialty Start Date End Date Ravi Smith MD PCP - General 11/04/17 09/27/21 Aft, Kianna Machado MD PhD [address] [place] [address] Surgeon Surgical Oncology 11/22/17 Santiago Gilbert MD [address] [place] [address] Screen Tacker Gastroenterology 11/22/17 documented as of this encounter
--- OUTSIDE RECORDS SUMMARY | 2024-04-24 13:50 | XMS_ITS | Encounter Summary ---
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) Procedures Dihydropyrimidine Dehydrogenase (DPD) Gene Mutation Analysis -Miscellaneous Molecular Send-out Request Abbi Ventura MD Phone: tel: fax: Referral ID Status Reason Start Date Expiration Date Visits Re quested Visits Authorized [id number] Closed 04/23/2018 11/02/2019 1 1 Encounter Details Date Type Department Care Team (Latest Contact Info) Description 04/23/2018 7:45 AM ENTERPRISE ARCHITECT Clinical Support [facility] [address] [place] [id number] Malignant neoplasm of descending colon (CMS/HCC) Social History Tobacco Use Types Packs/Day Years Used Date Smoking Tobacco: Former Cigarettes 2015 Smokeless Tobacco: Never Alcohol Use Standard Drinks/Week Comments Yes 0 (1 standard drink = 0.6 oz pur e alcohol) socially Comments No Sex and Gender Information Value Date Recorded Sex Assigned at Not on file Legal Sex Female 1:06 AM ENTERPRISE ARCHITECT Gender Identity Not on file Sexual Orientation Not on file documented as of this encounter Miscellaneous Notes * Addendum Note - Janette Taylor - 04/23/2018 7:45 AM CSTAddended by: JANETTE SOLORIO on: 04/23/2018 02:05 PM Modules accepted: Orders RPRISE ARCHITECT documented in this encounter Plan of Treatment Not on file documented as of this encounter Procedures Procedure Name Priority Date/Time Associated Diagnosis Comments MISCELLANEOUS MOLECULAR SEND-OUT REQUEST Routine 04/23/2018 2:30 PM ENTERPRISE ARCHITECT Malignant neoplasm of descending colon (CMS/HCC) DIFFERENTIAL AUTO Routine 04/23/2018 8:1 0 AM ENTERPRISE ARCHITECT Malignant neoplasm of descending colon (CMS/HCC) CBC WITH AUTO DIFFERENTIAL Routine 04/23/2018 8:10 AM ENTERPRISE ARCHITECT Malignant neoplasm of descending colon (CMS/HCC) COMPREHENSIVE METABOLIC PANEL STAT 04/23/2018 8:10 AM ENTERPRISE ARCHITECT Malignant neoplasm of descending colon (CMS/HCC) documented in this encounter Results * Dihydropyrimidine Dehydrogenase (DPD) Gene Mutation Analysis -Miscellaneous Molecular Send-out Request (04/23/2018 2:30 PM ENTERPRISE ARCHITECT) Result 1 Test Name: DPYD Genotype Specimen Type: PB Supplemental Comments: _ Result: _ Units: _ Reference Range: _ Reference Lab: [facility] [address] [place] [address] Telephone: ?? [facility] Test name DPYD Genotype [facility] Blood specimen (specimen) 04/23/2018 2:30 PM ENTERPRISE ARCHITECT 04/24/2018 7:39 AM ENTERPRISE ARCHITECT Narrative [facility] - 05/01/2018 10:59 AM ENTERPRISE ARCHITECT 6ml EDTA tube--per Alverto mcintyre lab--send out to [facility] Test Requested:->Dihydropyrimidine Dehydrogenase (DPD) Gene Mutation Analysis Abbi Ventura MD LAB GENETIC TESTING Final Result [facility] Department [place] [address] * Differential, auto (04/23/2018 8:10 AM ENTERPRISE ARCHITECT) Neutrophil abs 1.8 1.7 - 6.5 K/cumm [facility] Imm gran abs 0.0 0.0 - 0.1 K/cumm [facility] Lymphocyte abs 1.2 0.8 - 3.3 K/cumm [facility] Monocyte abs 0.4 0.2 - 0.8 K/cumm [facility] Eosinophil abs 0.1 0.0 - 0.5 K/cumm [facility] Basophil abs 0.1 0.0 - 0.1 K/cumm [facility] Neutrophil pct 49.2 % [facility] Comment: Interpretive Data Percent cell count reference ranges are not reported, since discordance with absolute values may lead to misinterpretation of CBC data. Current Interpretive Data was last revised on 2017. Imm gran pct 0.6 % [facility] Comment: Interpretive Data Percent cell count reference ranges are not reported, since discordance with absolute values may lead to misinterpretation of CBC data. Current Interpretive Data was last revised on 2017. Lymphocyte pct 33.9 % [facility] Comment: Interpretive Data Percent cell count reference ranges are not reported, since discordance with absolute values may lead to misinterpretation of CBC data. Current Interpretive Data was last revised on 2017. Monocyte pct 11.5 % [facility] Comment: Interpretive Data Percent cell count reference ranges are not reported, since discordance with absolute values may lead to misinterpretation of CBC data. Current Interpretive Data was last revised on 2017. Eosinophil pct 3.1 % [facility] Comment: Interpretive Data Percent cell count reference ranges are not reported, since discordance with absolute values may lead to misinterpretation of CBC data. Current Interpretive Data was last revised on 2017. Basophil pct 1.7 % [facility] Comment: Interpretive Data Percent cell count reference ranges are not reported, since discordance with absolute values may lead to misinterpretation of CBC data. Current Interpretive Data was last revised on 2017. Blood specimen (specimen) 04/23/2018 8:10 AM ENTERPRISE ARCHITECT 04/23/2018 8:16 AM ENTERPRISE ARCHITECT Narrative [facility] - 04/23/2018 8:25 AM ENTERPRISE ARCHITECT us Abbi Ventura MD LAB BLOOD ORDERABLES Final Resul t [facility] Department [place] [address] * (ABNORMAL) Comprehensive metabolic panel (04/23/2018 8:10 AM ENTERPRISE ARCHITECT) Sodium 142 135 - 145 mmol/L [facility] Potassium, pl 4.0 3.3 - 4.9 mmol/L [facility] Chloride 107 97 - 110 mmol/L [facility] CO2 25 22 - 32 mmol/L [facility] Anion gap 10 2 - 15 mmol/L [facility] BUN 19 8 - 25 mg/dL [facility] Creatinine 1.15(H) 0.60 - 1.10 mg/dL [facility] Glucose 276(H) 70 - 199 mg/dL [facility] Comment: Interpretive Data Fasting glucose [...] 2017. Calcium 8.8 8.5 - 10.3 mg/dL [facility] Bilirubin, total 0.4 0.1 - 1.2 mg/dL [facility] Protein, pl 6.2(L) 6.5 - 8.5 g/dL [facility] Albumin 3.8 3.5 - 5.0 g/dL [facility] Alk phos 90 40 - 130 Units/L [facility] ALT 25 7 - 45 Units/L [facility] AST 28 10 - 45 Units/L [facility] Blood specimen (specimen) 04/23/2018 8:10 AM ENTERPRISE ARCHITECT 04/23/2018 8:16 AM ENTERPRISE ARCHITECT Narrative [facility] - 04/23/2018 9:34 AM ENTERPRISE ARCHITECT us Abbi Ventura MD LAB BLOOD ORDERABLES Final Resul t [facility] Department [place] [address] * (ABNORMAL) CBC with auto differential (04/23/2018 8:10 AM ENTERPRISE ARCHITECT) WBC 3.6(L) 3.8 - 9.9 K/cumm [facility] Hgb 9.8(L) 11.9 - 15.5 g/dL [facility] Hct 29.3(L) 35.6 - 45.5 % [facility] Plt 80(L) 150 - 400 K/cumm [facility] MPV 9.0(L) 9.1 - 12.3 fL [facility] RBC 3.08(L) 3.90 - 5.20 M/cumm [facility] MCV 95.1 81.3 - 96.4 fL [facility] MCH 31.8 27.1 - 33.3 pg [facility] MCHC 33.4 32.3 - 35.7 g/dL [facility] RDW CV 17.2(H) 11.1 - 14.9 % [facility] RDW SD 58.0(H) 35.7 - 48.1 fL [facility] NRBC abs 0.02(H) 0.00 - 0.01 K/cumm [facility] Blood specimen (specimen) 04/23/2018 8:10 AM ENTERPRISE ARCHITECT 04/23/2018 8:16 AM ENTERPRISE ARCHITECT Narrative [facility] - 04/23/2018 8:25 AM ENTERPRISE ARCHITECT us Abbi Ventura MD LAB BLOOD ORDERABLES Final Resul t [facility] Department [place] [address] documented in this encounter Visit Diagnoses Diagnosis 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
--- OUTSIDE RECORDS SUMMARY | 2024-04-24 13:50 | XMS_ITS | Encounter Summary ---
Author Organization 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, estrogen receptor negative (HCC) Procedures US Vein Duplex Upper Extremity Right Limited Abbi Ventura MD Phone: tel: fax: [facility] (All Locations) Referral ID Status Reason Start Date Expiration Date Visits Re quested Visits Authorized [id number] Closed 04/10/2018 10/20/2019 1 1 Encounter Details Date Type Department Care Team (Latest Contact Info) Description 04/10/2018 3:30 PM TOOL AND MACHINE MAINTAINER Ancillary Procedure [facility] Cardiology [address] [facility] [address] [place] [address] Malignant neoplasm of descending colon (CMS/HCC); Malignant [...] file Legal Sex Female 1:06 AM TOOL AND MACHINE MAINTAINER Gender Identity Not on file Sexual Orientation Not on file documented as of this encounter Procedure Notes * Antonio Blanchard MD - 04/10/2018 12:00 AM CST Date: 04/29/2018 Patient Name: ALEAH GERBER Date of : 1955 Date of Visit: 04/10/2018 PROCEDURE: Right upper extremity venous Doppler. INDICATIONS: The patient underwent a right upper extremity venous Doppler to rule out DVT. TECHNIQUE: Right internal jugular vein, right subclavian, brachial, cephalic, and axillary vein was interrogated with the color-flow Doppler. INTERPRETATION: No evidence of deep vein thrombosis noted in the right upper extremity. IMPRESSION: No evidence of deep vein thrombosis in the right upper extremity and right internal jugular vein. ELECTRONICALLY SIGNED - 05/01/2018 07:30 PM Antonio Blanchard M.D., F.A.C.C. maintenance engineer SJ/RL cc: ABBI VENTURA M.D. 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
--- OUTSIDE RECORDS SUMMARY | 2024-04-24 13:50 | XMS_ITS | Encounter Summary ---
Author Organization [facility] Address [address] [place] [address] Care Team Providers Care Clothes Drier Assembler Name Role Phone Ravi Smith MD Primary Care Provider [phone] Kianna Bunch MD PhD Unavailable [phone] Santiago Gilbert MD Unavailable [phone] Encounter Details Date Type Department Care Team (Late st Contact Info) Description 04/24/2018 7:40 AM MOLD LAMIN[place] [address] Social History Tobacco Use Types Packs/Day Years Used Date Smoking Tobacco: Former Cigarettes 2015 Smokeless Tobacco: Never Alcohol Use Standard Drinks/Week Comments Yes 0 (1 standard drink = 0.6 oz pur e alcohol) socially Comments No Sex and Gender Information Value Date Recorded Sex Assigned at Not on file Legal Sex Female 1:06 AM MOLD LAMINATOR Gender Identity Not on file Sexual Orientation Not on file documented as of this encounter Plan of Treatment Not on file documented as of this encounter Visit Diagnoses Not on filedocumented in this encounter Care Teams Clothes Drier Assembler Relationship Specialty Start Date End Date Ravi Smith MD PCP - General 11/04/17 09/27/21 Kianna Bunch MD PhD [address] [place] [address] [address] [place] [address] Surgeon Surgical Oncology 11/22/17 Santiago Gilbert MD [address] [place] [address] Director Global Market Research Gastroenterology 11/22/17 documented as of this encounter
--- OUTSIDE RECORDS SUMMARY | 2024-04-24 13:50 | XMS_ITS | Encounter Summary ---
Author Organization [facility] Address [address] [place] [address] Phone Care Team Providers Care Electrician Second Name Role Phone Ravi Smith MD Primary Care Provider [phone] Aft, Kianna Machado MD PhD Unavailable [phone] Santiago Gilbert MD Unavailable [phone] Encounter Details Date Type Department Care Team (Late st Contact Info) Description 04/11/2018 1:00 PM METALLOGRAPHY TEACHER Infusion [facility] Oncology [address] [place] [id number] 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) Social History Tobacco Use Types Packs/Day Years Used Date Smoking Tobacco: Former Cigarettes 2015 Smokeless Tobacco: Never Alcohol Use Standard Drinks/Week Comments Yes 0 (1 standard drink = 0.6 oz pur e alcohol) socially Comments No Sex and Gender Information Value Date Recorded Sex Assigned at Not on file Legal Sex Female 1:06 AM METALLOGRAPHY TEACHER Gender Identity Not on file Sexual Orientation Not on file documented as of this encounter Last Filed Vital Signs Vital Sign Reading Time Taken Comments Blood Pressure 157/77 04/11/2018 1:03 PM METALLOGRAPHY TEACHER Pulse 99 04/11/2018 1:03 PM METALLOGRAPHY TEACHER Temperature - - Respiratory Rate 18 04/11/2018 1:03 PM METALLOGRAPHY TEACHER Oxygen Saturation 95% 04/11/2018 1:03 PM METALLOGRAPHY TEACHER Inhaled Oxygen Concentration - - Weight 108.4 kg (238 lb 14.4 oz) 04/11/2018 1:03 PM METALLOGRAPHY TEACHER Height - - Body Mass Index 36.32 04/09/2018 10:27 AM METALLOGRAPHY TEACHER documented in this encounter Nursing Notes * Rhoda Jo - 04/11/2018 1:00 PM CST Patient came in to be hooked up her 5FU after IR evaluation. Great blood return. Patient rehooked up to pump at a rate of 2.4 ml per hour. Patient stayed for about 5 minutes. No issues with pump. Patient has no concerns or problems at this time. 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
--- OUTSIDE RECORDS SUMMARY | 2024-04-24 13:50 | XMS_ITS | Encounter Summary ---
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) Procedures Dihydropyrimidine Dehydrogenase (DPD) Gene Mutation Analysis -Miscellaneous Molecular Send-out Request Abbi Ventura MD Phone: tel: fax: Referral ID Status Reason Start Date Expiration Date Visits Re quested Visits Authorized [id number] Closed 04/23/2018 11/02/2019 1 1 OPERATIONS DIRECTOR Reason for Visit * Episode Based Medications (Routine) - Closed Specialty Diagnoses / Procedures Referred By Contac t Referred To Contact Diagnoses 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) Procedures [id number]: (Fluorouracil / Leucovorin / Oxaliplatin) 14 Day Cycles Abbi Ventura MD [address] [facility] [address] [place] [address] Phone: tel: fax: [facility] Oncology [address] [facility] [place] [address] Phone: tel: Referral ID Status Reason Start Date Expiration Date Visits Re quested Visits Authorized [id number] Closed 01/31/2018 05/05/2019 1 18 Encounter Details Date Type Department Care Team (Late st Contact Info) Description 04/23/2018 8:15 AM DATA OPERATIONS DIRECTOR Office Visit [facility] Oncology [address] [place] [address] Abbi Ventura MD [address] [facility] [address] [place] [address] 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) Social History Tobacco Use Types Packs/Day Years Used Date Smoking Tobacco: Former Cigarettes 2015 Smokeless Tobacco: Never Alcohol Use Standard Drinks/Week Comments Yes 0 (1 standard drink = 0.6 oz pur e alcohol) socially Comments No Sex and Gender Information Value Date Recorded Sex Assigned at Not on file Legal Sex Female 1:06 AM DATA OPERATIONS DIRECTOR Gender Identity Not on file Sexual Orientation Not on file documented as of this encounter Last Filed Vital Signs Vital Sign Reading Time Taken Comments Blood Pressure 155/87 04/23/2018 8:26 AM DATA OPERATIONS DIRECTOR Pulse 130 04/23/2018 8:26 AM DATA OPERATIONS DIRECTOR Temperature 36.6 ??C (97.9 ??F) 04/23/2018 8:26 AM CS T Respiratory Rate 18 04/23/2018 8:26 AM DATA OPERATIONS DIRECTOR Oxygen Saturation 96% 04/23/2018 8:26 AM DATA OPERATIONS DIRECTOR Inhaled Oxygen Concentration - - Weight 107.7 kg (237 lb 8 oz) 04/23/2018 8:26 AM DATA OPERATIONS DIRECTOR Height 172.7 cm (5' 8 ) 04/23/2018 8:26 AM DATA OPERATIONS DIRECTOR Body Mass Index 36.11 04/23/2018 8:26 AM DATA OPERATIONS DIRECTOR documented in this encounter Progress Notes * Abbi Ventura MD - 04/23/2018 8:15 AM CST Patient Identifying Data: Aleah Gerber [...] to oxaliplatin during cycle 6 of FOLFOX TREATMENT HISTORY: 1.In March 2017 she had [...] mucositis) and oxaliplatin at 50% reduced dose Interval History For cycle 5 her 5 FU pump stopped infusing after 24 hours. She as evaluated by VIR and received alteplase through the catheter resulting in catheter functioning again. Her 5 FU pump was started back and she finished the rest of 5FU infusion. C/o mouth sores despite doing salt water rinses, discomfort in her vagina and anal area. She felt for two days every orifice in her body was on fire. Denies diarrhea. Denies motor neuropathy. Had cold sensitivity and fatigue for first week after chemotherapy. No other complaints. Review of Systems Review of systems positive for symptoms as per interval history. All other review of systems negative. Objective Vitals: Vitals BP 155/87 (BP Location: Right arm) Pulse (!) 130 Temp 36.6 ??C (97.9 ??F) (Oral) Resp 18 Ht 172.7 cm (5' 8 ) Wt 107.7 kg (237 lb 8 oz) SpO2 96% BMI 36.11 kg/m?? PERFORMANCE STATUS: ECOG 1 SKIN: Normal [...] movements are intact. There is no nystagmus. Able to perform tandem walking and pick small objects without difficulty. LYMPH NODES: The patient has no cervical, [...] aredisplayed. Labs - Hematology Latest Ref Range 03/19/18 03/25/18 04/09/18 04/23/18 WBC 3.8 - 9.9 K/cumm 3.6 (A) 7.1 3.6 (A) 3.6 (A) Total Hb, POC 11.9 - 15.5 g/dL 12.4 10.1 (A) 10.8 (A) 9.8 (A) Hct 35.6 - 45.5 % 35.5 (A) 29.4 (A) 32.2 (A) 29.3 (A) Plt 150 - 400 K/cumm 121 (A) 89 (A) 131 (A) 80 (A) Neutrophil abs 1.7 - 6.5 K/cumm 1.1 (A) 4.3 1.6 (A) 1.8 (A) Abnormal value Chemistry Component Value Date/Time SODIUM 142 04/23/2018 0810 POTASSIUM 4.0 04/23/2018 0810 CHLORIDE 107 04/23/2018 0810 CO2 25 04/23/2018 0810 BUNSER 19 04/23/2018 0810 CREATININE 1.15 (H) 04/23/2018 0810 GLUCOSE 276 (H) 04/23/2018 0810 Component Value Date/Time CALCIUM 8.8 04/23/2018 0810 ALKPHOS 90 04/23/2018 0810 AST 28 04/23/2018 0810 ALT 25 04/23/2018 0810 BILITOT 0.4 04/23/2018 0810 Tumor Marker History Some values may be hidden. Unless noted otherwise, only the newest values recorded on each date aredisplayed. Tumor Markers Latest Ref Range 01/28/18 02/06/18 03/19/18 04/09/18 CEA 0.0 - 5.0 ng/mL 1.59 1.4 4.8 4.2 Comments are available for some flowsheets but are not being displayed. Recent labs, radiology and pathology reviewed in [facility]ESSMENT: T4bN0 disease, Stage IIC colon adenocarcinoma: tolerated cycle 5 of chemotherapy with FOLFOX well except for grade 2 mucositis, grade 1 fatigue and cold sensitivity T2N0, 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 [facility] panel is positive for BRCA2 mutation, and VUS in BRIP1 and NBN Depression/anxiety: follow up with Dr. Simms Slightly high creatinine: we have asked patient to drink more fluids PLAN: Start cycle 6 of FOLFOX today with 5FU/LV at 25% reduced dose due to mucositis and Oxaliplatin at 50% reduced dose. RTC in 2 weeks to see me before cycle 7 of FOLFOX Plan is to switch to TC chemotherapy for breast cancer after cycle 8 of FOLFOX ADDENDUM: During last few minutes of oxaliplatin infusion, patient had tongue swelling and throat closing sensation and we discontinued oxaliplatin chemotherapy.Symptoms resolved with benadryl 25 mg x 2, Pepcid, and solucortef. Abbi Ventura MD Environmental Journalistsupervisor cytogenetic laboratory Division of Oncology Section of Medical Oncology [facility] Research Project Manager completed by using M*Modal Fluency Direct speaking software, therefore, transcriptionvariances may occur. OPERATIONS DIRECTOR documented in this encounter Plan of Treatment Not on file documented as of this encounter Results * (ABNORMAL) Comprehensive metabolic panel (05/07/2018 9:30 AM DATA OPERATIONS DIRECTOR) Sodium 142 135 - 145 mmol/L [facility] Potassium, pl 3.3 3.3 - 4.9 mmol/L [facility] Chloride 107 97 - 110 mmol/L [facility] CO2 23 22 - 32 mmol/L [facility] Anion gap 12 2 - 15 mmol/L [facility] BUN 20 8 - 25 mg/dL [facility] Creatinine 0.82 0.60 - 1.10 mg/dL [facility] Glucose 260(H) 70 - 199 mg/dL [facility] Comment: Interpretive Data Fasting glucose >/= [...] 2017. Calcium 9.3 8.5 - 10.3 mg/dL [facility] Bilirubin, total 0.4 0.1 - 1.2 mg/dL [facility] Protein, pl 6.1(L) 6.5 - 8.5 g/dL [facility] Albumin 3.7 3.5 - 5.0 g/dL [facility] Alk phos 91 40 - 130 Units/L [facility] ALT 38 7 - 45 Units/L [facility] AST 47(H) 10 - 45 Units/L [facility] Blood specimen (specimen) 05/07/2018 9:30 AM DATA OPERATIONS DIRECTOR 05/07/2018 9:41 AM DATA OPERATIONS DIRECTOR Narrative [facility] - 05/07/2018 10:14 AM DATA OPERATIONS DIRECTOR us Abbi Ventura MD LAB BLOOD ORDERABLES Final Resul t Performing Organization Address [facility] de Phone Number [facility] [place] [address] * CEA (05/07/2018 9:30 AM DATA OPERATIONS DIRECTOR) [facility] CEA 5.0 0.0 - 5.0 ng/mL [facility] Comment: Interpretative Data: Reference Range: Non-Smokers: 0.0 - 5.0 ng/mL Smokers: 0.0 ? 6.5 ng/mL This test was developed and its performance characteristics determined by the [facility] in a manner consistent with CLIA requirements. This test has not been cleared or approved by the U.S. Food and Drug Administration. Current interpretive data was last revised 2018. Blood specimen (specimen) 05/07/2018 9:30 AM DATA OPERATIONS DIRECTOR 05/07/2018 10:32 AM DATA OPERATIONS DIRECTOR Narrative [facility] - 05/07/2018 11:11 AM DATA OPERATIONS DIRECTOR Abbi Ventura MD LAB BLOOD ORDERABLES Final Resul t Performing Organization Address [facility] de Phone Number [facility] Department [place] [address] * (ABNORMAL) CBC with auto differential (05/07/2018 9:30 AM DATA OPERATIONS DIRECTOR) [facility] WBC 3.3(L) 3.8 - 9.9 K/cumm [facility] Hgb 9.6(L) 11.9 - 15.5 g/dL [facility] Hct 27.9(L) 35.6 - 45.5 % [facility] Plt 84(L) 150 - 400 K/cumm [facility] MPV 9.7 9.1 - 12.[address] [facility] RBC 2.87(L) 3.90 - 5.20 M/cumm [facility] MCV 97.2(H) 81.3 - 96.[address] [facility] MCH 33.4(H) 27.1 - 33.[address] [facility] MCHC 34.4 32.3 - 35.7 g/dL [facility] RDW CV 19.1(H) 11.1 - 14.9 % [facility] RDW SD 63.7(H) 35.7 - 48.[address] [facility] NRBC abs 0.08(H) 0.00 - 0.01 K/cumm [facility] Blood specimen (specimen) 05/07/2018 9:30 AM DATA OPERATIONS DIRECTOR 05/07/2018 9:41 AM DATA OPERATIONS DIRECTOR Narrative [facility] - 05/07/2018 9:46 AM DATA OPERATIONS DIRECTOR Abbi Ventura MD LAB BLOOD ORDERABLES Final Resul t [facility] [place] [address] * Dihydropyrimidine Dehydrogenase (DPD) Gene Mutation Analysis -Miscellaneous Molecular Send-out Request (04/23/2018 2:30 PM DATA OPERATIONS DIRECTOR) Result 1 Test Name: DPYD Genotype Specimen Type: PB Supplemental Comments: _ Result: _ Units: _ Reference Range: _ Reference Lab: [facility] [address] [place] [address] Telephone: ?? [facility] Test name DPYD Genotype [facility] Blood specimen (specimen) 04/23/2018 2:30 PM DATA OPERATIONS DIRECTOR 04/24/2018 7:39 AM DATA OPERATIONS DIRECTOR Narrative [facility] - 05/01/2018 10:59 AM DATA OPERATIONS DIRECTOR 6ml EDTA tube--per [facility]--send out to [facility] Test Requested:->Dihydropyrimidine Dehydrogenase (DPD) Gene Mutation Analysis Abbi Ventura MD LAB GENETIC TESTING Final Result Performing Organization Address City/[facility]/ZIP Co de Phone Number [facility] Department [address] [address] documented in this encounter Visit Diagnoses Diagnosis Malignant neoplasm of descending colon (CMS/HCC) (HCC) Malignant neoplasm of descending colon Malignant neoplasm of descending colon (CMS/HCC) (HCC)- Primary Malignant neoplasm of descending colon Malignant neoplasm of descending colon (CMS/HCC) (HCC) Malignant neoplasm of descending colon documented in this encounter Orders Appointment Requests Count Last Ordered Date Fi rst Ordered Date ONCBCN CLINIC APPOINTMENT REQUEST 2 019 04/23/2018 ONCBCN LAB APPOINTMENT 1 05/07/2018 ONCBCN RETURN CHEMO 4HRS 1 05/07/2018 ONCBCN INFUSION APPT REQUEST 1 05/01/2018 documented in this encounter Care Teams Cinder Crusher Operator Relationship Specialty Start Date End Date Ravi Smith MD PCP - General 11/04/17 09/27/21 Aft, Kianna Machado MD PhD [address] [place] [address] Surgeon Surgical Oncology 11/22/17 Santiago Gilbert MD [address] [place] [address] Global Risk Management Director Gastroenterology 11/22/17 documented as of this encounter
--- OUTSIDE RECORDS SUMMARY | 2024-04-24 13:50 | XMS_ITS | Encounter Summary ---
Author Organization [facility] Healthcare Address [address] [place] [address] Care Team Providers Care Hand Iii Cutter Name Role Phone Ravi Smith MD Primary Care Provider [phone] Aft, Kianna Machado MD PhD Unavailable [phone] Santiago Gilbert MD Unavailable [phone] Reason for Visit * Diagnostic Imaging (Routine) - Closed Specialty Diagnoses / Procedures Referred By Contac t Referred To Contact Radiology Diagnoses 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, estrogen receptor negative (HCC) Procedures IR Follow Up Outpatient IR Contrast Injection Evaluation Central Venous Access Device Abbi Ventura MD Phone: tel: fax: [facility] Referral ID Status Reason Start Date Expiration Date Visits Re quested Visits Authorized [id number] Closed 04/11/2018 10/21/2019 1 1 Encounter Details Date Type Department Care Team (Late st Contact Info) Description 04/11/2018 10:34 AM GROCERY STOCK CLERK - 04/11/2018 12:52 PM GROCERY STOCK CLERK Hospital Encounter [facility] Radiology at [facility] [address] [place] [address] Abbi Ventura MD [address] [facility] [address] [place] [address] Alex Arthur MD [address] [facility] [address] [place] [address] Malignant neoplasm of descending colon (CMS/HCC); Malignant [...] on file Legal Sex Female 1:06 AM GROCERY STOCK CLERK Gender Identity Not on file Sexual Orientation Not on file documented as of this encounter Last Filed Vital Signs Vital Sign Reading Time Taken Comments Blood Pressure 162/83 04/11/2018 11:36 AM GROCERY STOCK CLERK Pulse 79 04/11/2018 11:36 AM GROCERY STOCK CLERK Temperature 36.5 ??C (97.7 ??F) 04/11/2018 11:[address] Respiratory Rate 16 04/11/2018 11:36 AM GROCERY STOCK CLERK Oxygen Saturation 98% 04/11/2018 11:36 AM GROCERY STOCK CLERK Inhaled Oxygen Concentration - - Weight - - Height - - Body Mass Index - - documented in this encounter Discharge Instructions * Discharge Instructions* Alex Arthur MD - 04/25/2018 12:50 PM GROCERY STOCK CLERK Interventional Radiology Outpatient Discharge Instructions/Note Diagnosis Port malfunction Procedure:tPA dwell Limitations: [] No lifting greater than 5 pounds with [] Right [] Left arm for 7 days. [] You received medication that may affect your judgement. ?? Stay with a responsible person today. ?? Do not drive, operate machinery, make any legal or important decisions, or drink alcohol tomorrow. ?? No smoking unless another adult is present. Other Diet: You may resume your previous diet. Medication: [] Usual medications; check with your regular doctor for any questions. Do not take any new pain medicine, sleeping pills or sedatives unless approved by your doctor. [] Prescriptions given for: Procedure Site Care: [] teaching sheet given [] Skin glue was used to close your incision. See teaching sheet. [] Keep site clean and dry. [] You may bathe or shower tomorrow. [] Change the dressing daily and if it becomes wet or dirty. [] Cover entire area with plastic and tape down edges before showering to keep site clean and dry. [] The suture at your dialysis access site may be removed by the dialysis staff on ___/___/___ (date). Drainage Tube Care: [] Flush tube with [] 5ml Normal Saline [] 10 ml Normal Saline [] Other: [] Flush tube [] once a day [] Other: [] Record drainage output every day. [] Your tube is capped. Uncap the tube after or if severe pain or fever develops. (Please see teaching sheet). [] Call Interventional Radiology if there is leakage around the tube or the tube stops draining. To contact an Interventional Radiologist call [phone] Saturday through Saturday from 7:30am-4:30pm. At all other times call [phone] and ask that the Interventional Radiologist be paged. Special instructions: Please call Interventional Radiology for any procedure related questions or problems including: ?? Extreme swelling or bruising at the site. ?? Unusual drainage or bleeding from procedure site. ?? Fever of 101.5 F for more than 24 hours. ?? Severe procedure related pain. Follow up care: [] Return to Interventional Radiology on at Please come to: [] 3rd Floor [facility] [] 4th floor [facility] [] [facility] [] [facility] Please call [phone] to schedule a follow up appointment. You need to return in ERY STOCK CLERK documented in this encounter Medications at Time [...] of constipation 30 capsule 11 12/31/2017 9 sertraline (ZOLOFT) 50 mg tablet Take 50 mg by mouth. 9 venlafaxine XR (EFFEXOR-XR) 75 mg 24 hr capsule Take 1 capsule (75 mg total) by mouth daily. 30 capsule 11 02/20/2018 9 documented as of this encounter Discharge Disposition Disposition Code Departure Means Destination Discharge to home or self care documented in this encounter Miscellaneous Notes * Perioperative Nursing Note - Tiffany Wiley RN - 04/11/2018 12:48 PM GROCERY STOCK CLERK Alteplase given per order. Dwell time 30min and port eval done per Dr. Arthur. Okay'd for further us. Dc'd to [facility] for infusion. ERY STOCK CLERK documented in this encounter Plan of Treatment Not on file documented as of this encounter Procedures Procedure Name Priority Date/Time Associated Diagnosis Comments IR FOLLOW UP OUTPATIENT Schedule Routine, Read Routine (OP Routine) 04/11/2018 12:45 PM GROCERY STOCK CLERK Malignant neoplasm of descending colon (CMS/HCC) Malignant neoplasm of upper-inner quadrant of left breast in female, 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) documented in this encounter Results * IR Follow Up Outpatient (04/11/2018 12:45 PM GROCERY STOCK CLERK) Anatomical Region Laterality Modality Ultrasound 04/11/2018 3:09 PM GROCERY STOCK CLERK Impressions 04/11/2018 3:09 PM GROCERY STOCK CLERK Sluggish flow in the port resolved with alteplase dwell. Port fully functional following this and the patient was reconnected to her pump without issue. Electronically signed by: Alex Arthur M.D. Narrative 04/11/2018 3:09 PM GROCERY STOCK CLERK EXAMINATION: ??INTERVENTIONAL RADIOLOGY FOLLOW-UP VISIT REFERRAL: ??Dr. [...] by: Alex Arthur M.D. Abbi Ventura MD IMG IR PROCEDURES Final Result documented in this encounter Visit Diagnoses Diagnosis Malignant neoplasm of descending colon (CMS/HCC) (HCC) Malignant neoplasm 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, estrogen receptor negative (HCC) documented in this encounter Administered Medications Inactive Administered Medications - up to 3 most recent administrations Medication Order MAR Action Action Date Dose Rate Site alteplase (CATHFLO ACTIVASE) injection 1 mg 1 mg, intra-catheter, Once, On Sat04/11/18 at 1300, For 1 dose, Pre-Op, 60 to 120 minute dwell time. Refrigerate, Indications: Occluded Arteriovenous CannulaIndications:Occluded Arteriovenous Cannula Given 04/11/2018 12:10 PM GROCERY STOCK CLERK 2 mg documented in this encounter Active and Recently Administered Medications Times are shown in GROCERY STOCK CLERK. Scheduled Medication Order 04/09/2018 04/10/2018 04/11/2018 alteplase (CATHFLO ACTIVASE) injection 1 mg (COMPLETED) 1 mg, intra-catheter, Once, On Sat04/11/18 at 1300, For 1 dose, Pre-Op, 60 to 120 minute dwell time. Refrigerate, Indications: Occluded Arteriovenous Cannula 1210 (Given - Provid er: Tiffany Wiley RN - Comment: per port) documented in this encounter Orders Medications Ordered That [place] ht Not Have Been Administered Count Last Ordered Date First Ordered Date alteplase (CATHFLO ACTIVASE) injection 1 mg 1 04/11/2018 documented in this encounter Care Teams Hand Iii Cutter Relationship Specialty Start Date End Date Ravi Smith MD PCP - General 11/04/17 09/27/21 Aft, Kianna Machado MD PhD [address] [place] [address] Surgeon Surgical Oncology 11/22/17 Santiago Gilbert MD [address] [place] [address] Printing Roller Handler Gastroenterology 11/22/17 documented as of this encounter
--- OUTSIDE RECORDS SUMMARY | 2024-04-24 13:50 | XMS_ITS | Encounter Summary ---
Author Organization [facility] Address [address] [place] [address] Phone Care Team Providers Care Fire Dispatcher Name Role Phone Ravi Smith MD Primary Care Provider [phone] Aft, Kianna Machado MD PhD Unavailable [phone] Santigao Gilbert MD Unavailable [phone] Reason for Referral * Diagnostic Imaging (Routine) - Closed Specialty Diagnoses / Procedures Referred By Contac t Referred To Contact Diagnoses 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, estrogen receptor negative (HCC) Procedures US Vein Duplex Upper Extremity Right Limited Abbi Ventura MD Phone: tel: fax: [facility] (All Locations) Referral ID Status Reason Start Date Expiration Date Visits Re quested Visits Authorized [id number] Closed 04/10/2018 10/20/2019 1 1 HEALTH LPN Encounter Details Date Type Department Care Team (Late st Contact Info) Description 04/10/2018 Orders Only [facility] Oncology [address] [place] [address] Abbi Ventura MD [address] [place] [address] [address] [place] [address] Malignant neoplasm of descending colon (CMS/HCC) (Primary [...] file Legal Sex Female 1:06 AM HOME HEALTH LPN Gender Identity Not on file Sexual Orientation Not on file documented as of this encounter Plan of Treatment Pending Results Name Type Priority Associated Diagnoses Date /Time US Vein Duplex Upper Extremity Right Limited Imaging Schedule Routine, Read Routine (OP Routine) Malignant neoplasm of descending colon (CMS/HCC) Malignant neoplasm of upper-inner quadrant of left breast in female, 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) 04/10/2018 4:17 PM HOME HEALTH LPN Scheduled Orders Name Type Priority Associated Diagnoses Orde r Schedule US Vein Duplex Upper Extremity Right Limited Imaging Schedule Routine, Read Routine (OP Routine) Malignant neoplasm of descending colon (CMS/HCC) Malignant neoplasm of upper-inner quadrant of left breast in female, 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) Expected: 04/10/2018, Expires: 04/10/2019 documented as of this encounter Visit Diagnoses Diagnosis Malignant neoplasm of descending colon (CMS/HCC) (HCC)- Primary Malignant neoplasm 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, estrogen receptor negative (HCC) documented in this encounter Care Teams Fire Dispatcher Relationship Specialty Start Date End Date Ravi Smith MD PCP - General 11/04/17 09/27/21 Aft, Kianna Machado MD PhD [address] [place] [address] Surgeon Surgical Oncology 11/22/17 Santiago Gilbert MD [address] [place] [address] Activity Therapist Gastroenterology 11/22/17 documented as of this encounter
--- OUTSIDE RECORDS SUMMARY | 2024-04-24 13:50 | XMS_ITS | Encounter Summary ---
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) Procedures [id number]: (Fluorouracil / Leucovorin / Oxaliplatin) 14 Day Cycles Abbi Ventura MD [address] [place] [address] [address] [place] [address] Phone: tel: fax: [facility] Oncology [address] [place] [address] Phone: tel: Referral ID Status Reason Start Date Expiration Date Visits Re quested Visits Authorized [id number] Closed 01/31/2018 05/05/2019 1 18 Encounter Details Date Type Department Care Team (Late st Contact Info) Description 04/23/2018 9:15 AM BATH ATTENDANT Infusion [facility] Oncology [address] [place] [address] Malignant neoplasm of descending colon (CMS/HCC) (Primary [...] on file Legal Sex Female 1:06 AM BATH ATTENDANT Gender Identity Not on file Sexual Orientation Not on file documented as of this encounter Nursing Notes * Evon Taylor - 04/23/2018 9:15 AM CST Pt tolerated Oxaliplatin up until the last few mins of flushing the drug and getting ready for 5FU push, pt started having tongue swelling, vitals remained stable, no difficulty breathing. Nurse stopped last minute of drug fush, started fluids and gave 25 mg IV benadryl per Emergency protocol. Vitals remained stable. Team made aware. 15 mins went by, swelling felt worse, doctor came over to assess, 25mg IV benadryl given again, followed by 20 mg of Pepcid ,and 100 mg Solu-Cortef. Pt waited another 30 mins, symptoms started to reside. After pt stated she felt better, VSS, ush and pump given, she left ambulatory with her daughter. Team aware and pt understands if she feels any worse to go to ER. Pt to slef-disconnect in 46 hours. 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 May repeat x1 if symptoms not relieved in 15 minutes. 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 2.32 m2 Treatment Plan BSA from Recorded weight), intravenous, at 132 mL/hr, Administer over 2 Hours, Once, On Sat04/23/18 at 1030, For 1 dose, Run concurrently with oxaliplatin. Do not exceed rate of 160 mg/min. 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 2.32 m2 Treatment Plan BSA from Recorded weight), intravenous, at 134.8 mL/hr, Administer over 2 Hours, Once, On Sat04/23/18 at 1000, For 1 dose, Irritant with vesicant potential. 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) Given 04/23/2018 9:29 AM BATH ATTENDANT 250 mcg documented in this encounter Orders Medications Ordered That Jefferson ht Not Have Been Administered Count Last Ordered Date First Ordered Date sodium chloride 0.9% bolus 1,000 mL 1 04/23 Nursing Count Last Ordered Date First Orde red Date ONC NURSING COMMUNICATION NEUROPATHY 1 04/05 ONCBCN TREATMENT PARAMETERS 2 1 04/23/2018 Appointment Requests Count Last Ordered Date Fi rst Ordered Date ONCBCN RETURN CHEMO 4HRS 1 04/23/2018 documented in this encounter Care Teams Auxiliary Engineer Relationship Specialty Start Date End Date Ravi Smith MD PCP - General 11/04/17 09/27/21 Aft, Kianna Machado MD PhD [address] [place] [address] Surgeon Surgical Oncology 11/22/17 Santiago Gilbert MD [address] [place] [address] Promotional Model Gastroenterology 11/22/17 documented as of this encounter
--- OUTSIDE RECORDS SUMMARY | 2024-04-24 13:50 | XMS_ITS | Encounter Summary ---
Author Organization [facility] Address [address] [place] [address] Phone Care Team Providers Care Advertising Assistant Name Role Phone Ravi Smith MD Primary Care Provider [phone] Kianna Bunch MD PhD Unavailable [phone] Santiago Gilbert MD Unavailable [phone] Encounter Details Date Type Department Care Team (Late st Contact Info) Description 04/11/2018 Orders Only [facility] Oncology [address] [place] [address] Fatemeh Zarate, LYDIA Social History Tobacco Use Types Packs/Day Years Used Date Smoking Tobacco: Former Cigarettes 2015 Smokeless Tobacco: Never Alcohol Use Standard Drinks/Week Comments Yes 0 (1 standard drink = 0.6 oz pur e alcohol) socially Comments No Sex and Gender Information Value Date Recorded Sex Assigned at Not on file Legal Sex Female 1:06 AM [employer] Gender Identity Not on file Sexual Orientation Not on file documented as of this encounter Plan of Treatment Not on file documented as of this encounter Visit Diagnoses Not on filedocumented in this encounter Care Teams Advertising Assistant Relationship Specialty Start Date End Date Ravi Smith MD PCP - General 11/04/17 09/27/21 Kianna Bunch MD PhD [address] [place] [address] Surgeon Surgical Oncology 11/22/17 Santiago Gilbert MD [address] [place] [address] Biotech Production Specialist Gastroenterology 11/22/17 documented as of this encounter
--- OUTSIDE RECORDS SUMMARY | 2024-04-24 13:50 | XMS_ITS | Encounter Summary ---
Author Organization [facility] Address [address] [place] [address] Phone Care Team Providers Care Sales Enablement Consultant Name Role Phone Ravi Smith MD Primary Care Provider [phone] Aft, Kianna Machado MD PhD Unavailable [phone] Santiago Gilbert MD Unavailable [phone] Encounter Details Date Type Department Care Team (Late st Contact Info) Description 04/11/2018 Orders Only [facility] Oncology [address] [place] [address] Abbi Ventura MD [address] [facility] [address] [place] [address] 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) Social History Tobacco Use Types Packs/Day Years Used Date Smoking Tobacco: Former Cigarettes 2015 Smokeless Tobacco: Never Alcohol Use Standard Drinks/Week Comments Yes 0 (1 standard drink = 0.6 oz pur e alcohol) socially Comments No Sex and Gender Information Value Date Recorded Sex Assigned at Not on file Legal Sex Female 1:06 AM PATIENT APPOINTMENT COORDINATOR Gender Identity Not on file Sexual Orientation Not on file documented as of this encounter Plan of Treatment Not on file documented as of this encounter Visit Diagnoses Diagnosis 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
--- OUTSIDE RECORDS SUMMARY | 2024-04-24 13:50 | XMS_ITS | Encounter Summary ---
Author Organization 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) Procedures [id number]: (Fluorouracil / Leucovorin / Oxaliplatin) 14 Day Cycles Abbi Ventura MD [address] [facility] [address] [place] [address] Phone: tel: fax: [facility] Oncology [address] [place] [address] Phone: tel: Referral ID Status Reason Start Date Expiration Date Visits Re quested Visits Authorized [id number] Closed 01/31/2018 05/05/2019 1 18 Encounter Details Date Type Department Care Team (Latest Contact Info) Description 05/21/2018 10:30 AM SEWER BRICKLAYER Clinical Support [facility] Oncology [address] [place] [address] Malignant neoplasm of descending colon (CMS/HCC) Social History Tobacco Use Types Packs/Day Years Used Date Smoking Tobacco: Former Cigarettes 1 2015 Smokeless Tobacco: Never Alcohol Use Standard Drinks/Week Comments Yes 0 (1 standard drink = 0.6 oz pur e alcohol) socially Comments No Sex and Gender Information Value Date Recorded Sex Assigned at Not on file Legal Sex Female 1:06 AM SEWER BRICKLAYER Gender Identity Not on file Sexual Orientation Not on file documented as of this encounter Plan of Treatment Not on file documented as of this encounter Procedures Procedure Name Priority Date/Time Associated Diagnosis Comments DIFFERENTIAL AUTO Routine 05/21/2018 10: 20 AM SEWER BRICKLAYER Malignant neoplasm of descending colon (CMS/HCC) CBC WITH AUTO DIFFERENTIAL Routine 05/21/2018 10:20 AM SEWER BRICKLAYER Malignant neoplasm of descending colon (CMS/HCC) CEA Routine 05/21/2018 10:20 AM SEWER BRICKLAYER Malignant neoplasm of descending colon (CMS/HCC) COMPREHENSIVE METABOLIC PANEL STAT 05/21/2018 10:20 AM SEWER BRICKLAYER Malignant neoplasm of descending colon (CMS/HCC) documented in this encounter Results * Differential, auto (05/21/2018 10:20 AM SEWER BRICKLAYER) Neutrophil abs 3.0 1.7 - 6.5 K/cumm [facility] Imm gran abs 0.0 0.0 - 0.1 K/cumm [facility] Lymphocyte abs 1.1 0.8 - 3.3 K/cumm [facility] Monocyte abs 0.5 0.2 - 0.8 K/cumm [facility] Eosinophil abs 0.1 0.0 - 0.5 K/cumm [facility] Basophil abs 0.0 0.0 - 0.1 K/cumm [facility] Neutrophil pct 63.4 % [facility] Comment: Interpretive Data Percent cell count reference ranges are not reported, since discordance with absolute values may lead to misinterpretation of CBC data. Current Interpretive Data was last revised on 2017. Imm gran pct 0.8 % [facility] Comment: Interpretive Data Percent cell count reference ranges are not reported, since discordance with absolute values may lead to misinterpretation of CBC data. Current Interpretive Data was last revised on 2017. Lymphocyte pct 22.5 % [facility] Comment: Interpretive Data Percent cell count reference ranges are not reported, since discordance with absolute values may lead to misinterpretation of CBC data. Current Interpretive Data was last revised on 2017. Monocyte pct 9.8 % [facility] Comment: Interpretive Data Percent cell count reference ranges are not reported, since discordance with absolute values may lead to misinterpretation of CBC data. Current Interpretive Data was last revised on 2017. Eosinophil pct 2.5 % [facility] Comment: Interpretive Data Percent cell count reference ranges are not reported, since discordance with absolute values may lead to misinterpretation of CBC data. Current Interpretive Data was last revised on 2017. Basophil pct 1.0 % [facility] Comment: Interpretive Data Percent cell count reference ranges are not reported, since discordance with absolute values may lead to misinterpretation of CBC data. Current Interpretive Data was last revised on 2017. Blood specimen (specimen) 05/21/2018 10:20 AM SEWER BRICKLAYER 05/21/2018 10:27 AM SEWER BRICKLAYER Narrative [facility] - 05/21/2018 10:30 AM SEWER BRICKLAYER Jamaica Montoya SENIOR 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 LAB BLOOD ORDERABLES Final Result [facility] Department [place] [address] * (ABNORMAL) Comprehensive metabolic panel (05/21/2018 10:20 AM SEWER BRICKLAYER) Sodium 140 135 - 145 mmol/L [facility] Potassium, pl 3.9 3.3 - 4.9 mmol/L [facility] Chloride 103 97 - 110 mmol/L [facility] CO2 23 22 - 32 mmol/L [facility] Anion gap 14 2 - 15 mmol/L [facility] BUN 19 8 - 25 mg/dL [facility] Creatinine 0.95 0.60 - 1.10 mg/dL [facility] Glucose 243(H) 70 - 199 mg/dL [facility] Comment: Interpretive Data Fasting glucose >/= 126 [...] 2017. Calcium 9.4 8.5 - 10.3 mg/dL [facility] Bilirubin, total 0.8 0.1 - 1.2 mg/dL [facility] Protein, pl 6.5 6.5 - 8.5 g/dL [facility] Albumin 4.0 3.5 - 5.0 g/dL [facility] Alk phos 92 40 - 130 Units/L [facility] ALT 45 7 - 45 Units/L [facility] AST 48(H) 10 - 45 Units/L [facility] Blood specimen (specimen) 05/21/2018 10:20 AM SEWER BRICKLAYER 05/21/2018 10:27 AM SEWER BRICKLAYER Narrative [facility] - 05/21/2018 10:53 AM [facility] [place] Montoya SENIOR 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 LAB BLOOD ORDERABLES Final Result [facility] Department [place] [address] * CEA (05/21/2018 10:20 AM SEWER BRICKLAYER) CEA 4.0 <=5.0 ng/mL [facility] Comment: Interpretative Data: Reference Range: Non-Smokers: 0.0 - 5.0 ng/mL Smokers: 0.0 ? 6.5 ng/mL This test was developed and its performance characteristics determined by the [facility] in a manner consistent with CLIA requirements. This test has not been cleared or approved by the U.S. Food and Drug Administration. Current interpretive data was last revised 2018. Blood specimen (specimen) 05/21/2018 10:20 AM SEWER BRICKLAYER 05/21/2018 11:44 AM SEWER BRICKLAYER Narrative [facility] - 05/21/2018 12:35 PM SEWER BRICKLAYER us Jamaica Montoya SENIOR 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 LAB BLOOD ORDERABLES Final Result [facility] Department [place] [address] * (ABNORMAL) CBC with auto differential (05/21/2018 10:20 AM SEWER BRICKLAYER) Pathologist [facility] WBC 4.8 3.8 - 9.9 K/cumm [facility] Hgb 9.5(L) 11.9 - 15.5 g/dL [facility] Hct 28.0(L) 35.6 - 45.5 % [facility] Plt 87(L) 150 - 400 K/cumm [facility] MPV 9.2 9.1 - 12.3 fL [facility] RBC 2.79(L) 3.90 - 5.20 M/cumm [facility] MCV 100.4(H) 81.3 - 96.4 fL [facility] MCH 34.1(H) 27.1 - 33.3 pg [facility] MCHC 33.9 32.3 - 35.7 g/dL [facility] RDW CV 18.7(H) 11.1 - 14.9 % [facility] RDW SD 67.5(H) 35.7 - 48.1 fL [facility] NRBC abs 0.03(H) 0.00 - 0.01 K/cumm [facility] Blood specimen (specimen) 05/21/2018 10:20 AM SEWER BRICKLAYER 05/21/2018 10:27 AM SEWER BRICKLAYER Narrative [facility] - 05/21/2018 10:30 AM SEWER BRICKLAYER us Jamaica Montoya SENIOR 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 LAB BLOOD ORDERABLES Final Result [facility] Department [place] [address] documented in this encounter Visit Diagnoses Diagnosis 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
--- OUTSIDE RECORDS SUMMARY | 2024-04-24 13:50 | XMS_ITS | Encounter Summary ---
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 Oncology [address] [place] [address] Phone: tel: Referral ID Status Reason Start Date Expiration Date Visits Re quested Visits Authorized [id number] Closed 01/31/2018 05/05/2019 1 18 Encounter Details Date Type Department Care Team (Latest Contact Info) Description 05/07/2018 9:00 AM ORDER DESK CLERK Clinical Support [facility] Oncology [address] [place] [address] Malignant neoplasm of descending colon (CMS/HCC) Social History Tobacco Use Types Packs/Day Years Used Date Smoking Tobacco: Former Cigarettes 1 2015 Smokeless Tobacco: Never Alcohol Use Standard Drinks/Week Comments Yes 0 (1 standard drink = 0.6 oz pur e alcohol) socially Comments No Sex and Gender Information Value Date Recorded Sex Assigned at Not on file Legal Sex Female 1:06 AM ORDER DESK CLERK Gender Identity Not on file Sexual Orientation Not on file documented as of this encounter Plan of Treatment Not on file documented as of this encounter Procedures Procedure Name Priority Date/Time Associated Diagnosis Comments DIFFERENTIAL AUTO Routine 05/07/2018 9:3 0 AM ORDER DESK CLERK Malignant neoplasm of descending colon (CMS/HCC) CBC WITH AUTO DIFFERENTIAL Routine 05/07/2018 9:30 AM ORDER DESK CLERK Malignant neoplasm of descending colon (CMS/HCC) CEA Routine 05/07/2018 9:30 AM ORDER DESK CLERK Malignant neoplasm of descending colon (CMS/HCC) COMPREHENSIVE METABOLIC PANEL STAT 05/07/2018 9:30 AM ORDER DESK CLERK Malignant neoplasm of descending colon (CMS/HCC) documented in this encounter Results * (ABNORMAL) Differential, auto (05/07/2018 9:30 AM ORDER DESK CLERK) Neutrophil abs 1.6(L) 1.7 - 6.5 K/cumm [facility] Imm gran abs 0.1 0.0 - 0.1 K/cumm [facility] Lymphocyte abs 1.1 0.8 - 3.3 K/cumm [facility] Monocyte abs 0.4 0.2 - 0.8 K/cumm [facility] Eosinophil abs 0.1 0.0 - 0.5 K/cumm [facility] Basophil abs 0.0 0.0 - 0.1 K/cumm [facility] Neutrophil pct 47.2 % [facility] Comment: Interpretive Data Percent cell count reference ranges are not reported, since discordance with absolute values may lead to misinterpretation of CBC data. Current Interpretive Data was last revised on 2017. Imm gran pct 2.7 % [facility] Comment: Interpretive Data Percent cell count reference ranges are not reported, since discordance with absolute values may lead to misinterpretation of CBC data. Current Interpretive Data was last revised on 2017. Lymphocyte pct 34.2 % [facility] Comment: Interpretive Data Percent cell count reference ranges are not reported, since discordance with absolute values may lead to misinterpretation of CBC data. Current Interpretive Data was last revised on 2017. Monocyte pct 12.0 % [facility] Comment: Interpretive Data Percent cell count reference ranges are not reported, since discordance with absolute values may lead to misinterpretation of CBC data. Current Interpretive Data was last revised on 2017. Eosinophil pct 2.4 % [facility] Comment: Interpretive Data Percent cell count reference ranges are not reported, since discordance with absolute values may lead to misinterpretation of CBC data. Current Interpretive Data was last revised on 2017. Basophil pct 1.5 % [facility] Comment: Interpretive Data Percent cell count reference ranges are not reported, since discordance with absolute values may lead to misinterpretation of CBC data. Current Interpretive Data was last revised on 2017. Blood specimen (specimen) 05/07/2018 9:30 AM ORDER DESK CLERK 05/07/2018 9:41 AM ORDER DESK CLERK Narrative [facility] - 05/07/2018 9:46 AM ORDER DESK CLERK us Abbi Ventura MD LAB BLOOD ORDERABLES Final Resul t [facility] One [facility] Department [place] [address] * (ABNORMAL) Comprehensive metabolic panel (05/07/2018 9:30 AM ORDER DESK CLERK) Sodium 142 135 - 145 mmol/L [facility] Potassium, pl 3.3 3.3 - 4.9 mmol/L [facility] Chloride 107 97 - 110 mmol/L [facility] CO2 23 22 - 32 mmol/L [facility] Anion gap 12 2 - 15 mmol/L [facility] BUN 20 8 - 25 mg/dL [facility] Creatinine 0.82 0.60 - 1.10 mg/dL [facility] Glucose 260(H) 70 - 199 mg/dL [facility] Comment: Interpretive Data Fasting glucose [...] 2017. Calcium 9.3 8.5 - 10.3 mg/dL [facility] Bilirubin, total 0.4 0.1 - 1.2 mg/dL [facility] Protein, pl 6.1(L) 6.5 - 8.5 g/dL [facility] Albumin 3.7 3.5 - 5.0 g/dL [facility] Alk phos 91 40 - 130 Units/L [facility] ALT 38 7 - 45 Units/L [facility] AST 47(H) 10 - 45 Units/L [facility] Blood specimen (specimen) 05/07/2018 9:30 AM ORDER DESK CLERK 05/07/2018 9:41 AM ORDER DESK CLERK Narrative [facility] - 05/07/2018 10:14 AM ORDER DESK CLERK us Abbi Ventura MD LAB BLOOD ORDERABLES Final Resul t [facility] One [facility] Department [place] [address] * CEA (05/07/2018 9:30 AM ORDER DESK CLERK) CEA 5.0 0.0 - 5.0 ng/mL [facility] Comment: Interpretative Data: Reference Range: [...] 2018. Blood specimen (specimen) 05/07/2018 9:30 AM ORDER DESK CLERK 05/07/2018 10:32 AM ORDER DESK CLERK Narrative [facility] - 05/07/2018 11:11 AM ORDER DESK CLERK us Abbi Ventura MD LAB BLOOD ORDERABLES Final Resul t Performing Organization Address City/[facility]/ZIP Co de Phone Number [facility] Department [place] [address] * (ABNORMAL) CBC with auto differential (05/07/2018 9:30 AM ORDER DESK CLERK) WBC 3.3(L) 3.8 - 9.9 K/cumm [facility] Hgb 9.6(L) 11.9 - 15.5 g/dL [facility] Hct 27.9(L) 35.6 - 45.5 % [facility] Plt 84(L) 150 - 400 K/cumm [facility] MPV 9.7 9.1 - 12.3 fL [facility] RBC 2.87(L) 3.90 - 5.20 M/cumm [facility] MCV 97.2(H) 81.3 - 96.4 fL [facility] MCH 33.4(H) 27.1 - 33.3 pg [facility] MCHC 34.4 32.3 - 35.7 g/dL [facility] RDW CV 19.1(H) 11.1 - 14.9 % [facility] RDW SD 63.7(H) 35.7 - 48.1 fL [facility] NRBC abs 0.08(H) 0.00 - 0.01 K/cumm [facility] Blood specimen (specimen) 05/07/2018 9:30 AM ORDER DESK CLERK 05/07/2018 9:41 AM ORDER DESK CLERK Narrative [facility] - 05/07/2018 9:46 AM ORDER DESK CLERK us Abbi Ventura MD LAB BLOOD ORDERABLES Final Resul t Performing Organization Address City/[facility] Co de Phone Number [facility] One 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
--- OUTSIDE RECORDS SUMMARY | 2024-04-24 13:50 | XMS_ITS | Encounter Summary ---
Author Organization [facility] Address [address] [place] [address] Phone Care Team Providers Care Torpedo Man Name Role Phone Ravi Smith MD Primary Care Provider [phone] Aft, Kianna Machado MD PhD Unavailable [phone] Santiago Gilbert MD Unavailable [phone] Encounter Details Date Type Department Care Team (Latest Contact Info) Description 04/23/2018 Orders Only [facility] Scanning, Provider Social History Tobacco Use Types Packs/Day Years Used Date Smoking Tobacco: Former Cigarettes 2015 Smokeless Tobacco: Never Alcohol Use Standard Drinks/Week Comments Yes 0 (1 standard drink = 0.6 oz pur e alcohol) socially Comments No Sex and Gender Information Value Date Recorded Sex Assigned at Not on file Legal Sex Female 1:06 AM MANAGER RN CASE Gender Identity Not on file Sexual Orientation Not on file documented as of this encounter Plan of Treatment Not on file documented as of this encounter Procedures Procedure Name Priority Date/Time Associated Diagnosis Comments SCAN - LABS 04/23/2018 documented in this encounter Results * SCAN - LABS (04/23/2018) us Provider Scanning Final Result documented in this encounter Visit Diagnoses Not on filedocumented in this encounter Care Teams Torpedo Man Relationship Specialty Start Date End Date Ravi Smith MD PCP - General 11/04/17 09/27/21 Aft, Kianna Machado MD PhD [address] [place] [address] Surgeon Surgical Oncology 11/22/17 Santiago Gilbert MD [address] [place] [address] Rip Saw Operator Gastroenterology 11/22/17 documented as of this encounter
--- OUTSIDE RECORDS SUMMARY | 2024-04-24 13:50 | XMS_ITS | Encounter Summary ---
Author Organization [facility] Address [address] [place] [address] Phone Care Team Providers Care Feather Maker Name Role Phone Ravi Smith MD Primary Care Provider [phone] Aft, Kianna Machado MD PhD Unavailable [phone] Santiago Gilbert MD Unavailable [phone] Encounter Details Date Type Department Care Team (Late st Contact Info) Description 04/17/2018 Orders Only [facility] Oncology [address] [place] [address] Fatemeh Zarate, LYDIA Social History Tobacco Use Types Packs/Day Years Used Date Smoking Tobacco: Former Cigarettes 2015 Smokeless Tobacco: Never Alcohol Use Standard Drinks/Week Comments Yes 0 (1 standard drink = 0.6 oz pur e alcohol) socially Comments No Sex and Gender Information Value Date Recorded Sex Assigned at Not on file Legal Sex Female 1:06 AM INSTRUMENT SPECIALIST Gender Identity Not on file Sexual Orientation Not on file documented as of this encounter Ordered Prescriptions Prescription Sig Dispense Quantity Refills Last Filled Start Date End Date al & mag hydroxide simethicone-diphen hydramine-lidocain e-nystatin (MAGIC MOUTHWASH) suspension 8-3-8-1Indications :Chemotherapy-Radha yohan Mucositis Swish and swallow 10 mL 4 (four) times a day as needed (mucositis). 480 mL 2 04/17/201809/22/ 9 fluconazole (DIFLUCAN) 100 mg tablet Take 1 tablet (100 mg total) by mouth daily for 7 days. 7 tablet 04/17/2018 8 documented in this encounter Plan of Treatment Not on file documented as of this encounter Visit Diagnoses Not on filedocumented in this encounter Care Teams Feather Maker Relationship Specialty Start Date End Date Ravi Smith MD PCP - General 11/04/17 09/27/21 Aft, Kianna Machado MD PhD [address] [place] [address] Surgeon Surgical Oncology 11/22/17 Santiago Gilbert MD [address] [place] [address] Materials Coordinator Gastroenterology 11/22/17 documented as of this encounter
--- OUTSIDE RECORDS SUMMARY | 2024-04-24 13:50 | XMS_ITS | Encounter Summary ---
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) Procedures mFOLFOX6: (Fluorouracil / Leucovorin / Oxaliplatin) 14 Day Cycles Abbi Ventura MD [facility] [address] [place] [address] Phone: tel: fax: [facility] Oncology [address] [place] [address] Phone: tel: Referral ID Status Reason Start Date Expiration Date Visits Re quested Visits Authorized [id number] Closed 01/31/2018 05/05/2019 1 18 Encounter Details Date Type Department Care Team (Late st Contact Info) Description 05/07/2018 9:30 AM MED ASST Office Visit [facility] Oncology [address] [place] [address] Abbi Ventura MD [address] [facility] [address] [place] [address] Malignant neoplasm of descending colon (CMS/HCC) Social History Tobacco Use Types Packs/Day Years Used Date Smoking Tobacco: Former Cigarettes 2015 Smokeless Tobacco: Never Alcohol Use Standard Drinks/Week Comments Yes 0 (1 standard drink = 0.6 oz pur e alcohol) socially Comments No Sex and Gender Information Value Date Recorded Sex Assigned at Not on file Legal Sex Female 1:06 AM MED ASST Gender Identity Not on file Sexual Orientation Not on file documented as of this encounter Last Filed Vital Signs Vital Sign Reading Time Taken Comments Blood Pressure 142/71 05/07/2018 9:48 AM MED ASST Pulse 136 05/07/2018 9:48 AM MED ASST Temperature 36.5 ??C (97.7 ??F) 05/07/2018 9:[address] Respiratory Rate 18 05/07/2018 9:48 AM MED ASST Oxygen Saturation 93% 05/07/2018 9:48 AM MED ASST Inhaled Oxygen Concentration - - Weight 109 kg (240 lb 4.8 oz) 05/07/2018 9:48 AM MED ASST Height 172.7 cm (5' 8 ) 05/07/2018 9:48 AM MED ASST Body Mass Index 36.54 05/07/2018 9:48 AM MED ASST documented in this encounter Progress Notes * Jamaica Montoya, HEALTH PROGRAM ANALYST - 05/07/2018 9:30 AM CST Patient Identifying Data: Aleah Gerber [...] 6 of FOLFOX 5. DYPD genotype normal. TREATMENT HISTORY: 1.In March 2017 she had [...] mucositis) and oxaliplatin at 50% reduced dose 12. Oxaliplatin discontinued for tongue swelling and throat closing on 04/23/2018. She had negativeskin testing to Oxaliplatin on 03/03/18. Interval History Patient here for consideration of cycle 7 5FU/LV at 25% reduced dose today. She voices fatigue and feels it is getting worse with each treatment. She is also voices having heart palpitations with shortness of breath on exertion for the past 2 weeks. She denies C/P and chest tightness. She complainsof bilateral knee pain which is something she has had since before starting chemotherapy treatment.Since her last visit she fell twice. She denies injury. Review of Systems Review of systems positive for symptoms as per interval history. All other review of systems negative. Objective Vitals: Vitals BP 142/71 (BP Location: Right arm) Pulse (!) 136 Temp 36.5 ??C (97.7 ??F) (Oral) Resp 18 Ht 172.7 cm (5' 8 ) Wt 109 kg (240 lb 4.8 oz) SpO2 93% BMI 36.54 kg/m?? PERFORMANCE STATUS: ECOG 1 SKIN: Normal [...] aredisplayed. Labs - Hematology Latest Ref Range 03/25/18 04/09/18 04/23/18 05/07/18 WBC 3.8 - 9.9 K/cumm 7.1 3.6 (A) 3.6 (A) 3.3 (A) Total Hb, POC 11.9 - 15.5 g/dL 10.1 (A) 10.8 (A) 9.8 (A) 9.6 (A) Hct 35.6 - 45.5 % 29.4 (A) 32.2 (A) 29.3 (A) 27.9 (A) Plt 150 - 400 K/cumm 89 (A) 131 (A) 80 (A) 84 (A) Neutrophil abs 1.7 - 6.5 K/cumm 4.3 1.6 (A) 1.8 1.6 (A) (A) Abnormal value Chemistry Component Value Date/Time SODIUM 142 05/07/2018 0930 POTASSIUM 3.3 05/07/2018 0930 CHLORIDE 107 05/07/2018 0930 CO2 23 05/07/2018 0930 BUNSER 20 05/07/2018 0930 CREATININE 0.82 05/07/2018 0930 GLUCOSE 260 (H) 05/07/2018 0930 Component Value Date/Time CALCIUM 9.3 05/07/2018 0930 ALKPHOS 91 05/07/2018 0930 AST 47 (H) 05/07/2018 0930 ALT 38 05/07/2018 0930 BILITOT 0.4 05/07/2018 0930 Tumor Marker History Some values may be hidden. Unless noted otherwise, only the newest values recorded on each date aredisplayed. Tumor Markers Latest Ref Range 01/28/18 02/06/18 03/19/18 04/09/18 CEA 0.0 - 5.0 ng/mL 1.59 1.4 4.8 4.2 Comments are available for some flowsheets but are not being displayed. Recent labs, radiology and pathology [facility]: T4bN0 disease, Stage IIC colon adenocarcinoma: On 04/23/2018 Oxaliplatin discontinued after patientexperienced tongue swelling and throat closing. : skin testing negative to Oxaliplatin on 03/03/18.Has tolerated FOLFOX chemotherapy with 5FU/LV at 25% and Oxaliplatin at 50% well except for grade 2mucositis from 5FU, grade 1 fatigue and cold sensitivity. Heart palpitations and SOB without chest pain/tightness: Had normal walking 02 sat and EKG sinus tachycardia at 101 with PAC's. Had normal DYPD genotype testing. Possibly anxiety. We don't feel the heart palpitations are related to the 5FU/LV. 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 MyRisk panel is positive for BRCA2 mutation, and VUS in BRIP1 and NBN Depression/anxiety: follow up with Dr. Simms PLAN: Receive cycle 7 with 5FU/LV at 25% reduced dose. RTC in 2 weeks for office visit before cycle 8. Plan is to switch to TC chemotherapy for breast cancer after cycle 8 of FOLFOX Patient instructed to call 911 or go to ED if she should develop C/P. She was encouraged to schedule with skin toggler for further evaluation. JENNIFFER Ly Nurse Practitioner for Dr. Abbi Ventura Medical Oncology [facility] ASST documented in this encounter Plan of Treatment Not on file documented as of this encounter Results * (ABNORMAL) Comprehensive metabolic panel (05/21/2018 10:20 AM MED ASST) Sodium 140 135 - 145 mmol/L [facility] Potassium, pl 3.9 3.3 - 4.9 mmol/L [facility] Chloride 103 97 - 110 mmol/L [facility] CO2 23 22 - 32 mmol/L [facility] Anion gap 14 2 - 15 mmol/L [facility] BUN 19 8 - 25 mg/dL [facility] Creatinine 0.95 0.60 - 1.10 mg/dL [facility] Glucose 243(H) 70 - 199 mg/dL [facility] Comment: Interpretive Data Fasting glucose >/= [...] 2017. Calcium 9.4 8.5 - 10.3 mg/dL [facility] Bilirubin, total 0.8 0.1 - 1.2 mg/dL [facility] Protein, pl 6.5 6.5 - 8.5 g/dL [facility] Albumin 4.0 3.5 - 5.0 g/dL [facility] Alk phos 92 40 - 130 Units/L [facility] ALT 45 7 - 45 Units/L [facility] AST 48(H) 10 - 45 Units/L [facility] Blood specimen (specimen) 05/21/2018 10:20 AM MED ASST 05/21/2018 10:27 AM MED ASST Narrative [facility] - 05/21/2018 10:53 AM MED ASST us Jamaica Montoya HEALTH PROGRAM ANALYST LAB BLOOD ORDERABLES Final Result [facility] One [facility] Department [place] [address] * CEA (05/21/2018 10:20 AM MED ASST) CEA 4.0 <=5.0 ng/mL [facility] Comment: Interpretative Data: Reference Range: Non-Smokers: 0.0 - 5.0 ng/mL Smokers: 0.0 ? 6.5 ng/mL This test was developed and its performance characteristics determined by the [facility] in a manner consistent with CLIA requirements. This test has not been cleared or approved by the U.S. Food and Drug Administration. Current interpretive data was last revised 2018. Blood specimen (specimen) 05/21/2018 10:20 AM MED ASST 05/21/2018 11:44 AM MED ASST Narrative [facility] - 05/21/2018 12:35 PM MED ASST us Jamaica Montoya HEALTH PROGRAM ANALYST LAB BLOOD ORDERABLES Final Result [facility] One [facility] Department [place] [address] * (ABNORMAL) CBC with auto differential (05/21/2018 10:20 AM MED ASST) WBC 4.8 3.8 - 9.9 K/cumm [facility] Hgb 9.5(L) 11.9 - 15.5 g/dL [facility] Hct 28.0(L) 35.6 - 45.5 % [facility] Plt 87(L) 150 - 400 K/cumm [facility] MPV 9.2 9.1 - 12.3 fL [facility] RBC 2.79(L) 3.90 - 5.20 M/cumm [facility] MCV 100.4(H) 81.3 - 96.4 fL [facility] MCH 34.1(H) 27.1 - 33.3 pg [facility] MCHC 33.9 32.3 - 35.7 g/dL [facility] RDW CV 18.7(H) 11.1 - 14.9 % [facility] RDW SD 67.5(H) 35.7 - 48.1 fL [facility] NRBC abs 0.03(H) 0.00 - 0.01 K/cumm [facility] Blood specimen (specimen) 05/21/2018 10:20 AM MED ASST 05/21/2018 10:27 AM MED ASST Narrative [facility] - 05/21/2018 10:30 AM MED ASST us Jamaica Montoya HEALTH PROGRAM ANALYST LAB BLOOD ORDERABLES Final Result [facility] One [facility] Department [place] [address] documented in this encounter Visit Diagnoses Diagnosis 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) Malignant neoplasm of descending colon 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) Malignant neoplasm of descending colon documented in this encounter Orders Appointment Requests Count Last Ordered Date Fi rst Ordered Date ONCBCN CLINIC APPOINTMENT REQUEST 2 019 05/07/2018 ONCBCN LAB APPOINTMENT 1 05/21/2018 ONCBCN RETURN CHEMO 4HRS 1 05/21/2018 documented in this encounter Care Teams Client Services Director Relationship Specialty Start Date End Date Ravi Smith MD PCP - General 11/04/17 09/27/21 Aft, Kianna Machado MD PhD [address] [place] [address] Surgeon Surgical Oncology 11/22/17 Santiago Gilbert MD [address] [place] [address] Carpentry Specialist Gastroenterology 11/22/17 documented as of this encounter
--- OUTSIDE RECORDS SUMMARY | 2024-04-24 13:50 | XMS_ITS | Encounter Summary ---
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) Procedures mFOLFOX6: (Fluorouracil / Leucovorin / Oxaliplatin) 14 Day Cycles Abbi Ventura MD [address] [place] [address] [address] [place] [address] Phone: tel: fax: [facility] [address] [place] [address] Phone: tel: Referral ID Status Reason Start Date Expiration Date Visits Re quested Visits Authorized [id number] Closed 01/31/2018 05/05/2019 1 18 Encounter Details Date Type Department Care Team (Late st Contact Info) Description 05/07/2018 10:30 AM CHIEF PROCUREMENT OFFICER Infusion [facility] [address] [place] [address] 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) Social History Tobacco Use Types Packs/Day Years Used Date Smoking Tobacco: Former Cigarettes 1 3 - 2015 Smokeless Tobacco: Never Alcohol Use Standard Drinks/Week Comments Yes 0 (1 standard drink = 0.6 oz pur e alcohol) socially Comments No Sex and Gender Information Value Date Recorded Sex Assigned at Not on file Legal Sex Female 1:06 AM CHIEF PROCUREMENT OFFICER Gender Identity Not on file Sexual Orientation Not on file documented as of this encounter Last Filed Vital Signs Vital Sign Reading Time Taken Comments Blood Pressure - - Pulse 100 05/07/2018 11:38 AM CHIEF PROCUREMENT OFFICER Temperature - - Respiratory Rate - - Oxygen Saturation 97% 05/07/2018 11:38 AM CHIEF PROCUREMENT OFFICER Inhaled Oxygen Concentration - - Weight - - Height - - Body Mass Index - - documented in this encounter Nursing Notes * Rika Hernandez RN - 05/07/2018 10:30 AM CST Patient's port needed to be deaccessed and reaccessed during treatment. Patient stated this has happened before and the needle becomes positional. deaccessed towards the end of Leucovorin, reaccessedand continued treatment with no issues. 5FU push and pump connected. Patient tolerated all treatment with no issues. Disconnect kit given. Patient left ambulatory. 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 2.32 m2 Treatment Plan BSA from Recorded weight), intravenous, at 1.8 mL/hr, Administer over 46 Hours, over 46 hours, First dose on Sat05/07/18 at 1500, FOR PUMP PROBLEMS CALL [phone] IrritantIndications:Raheel russo neoplasm of descending colon (CMS/HCC) (HCC) Given 05/07/2018 2:12 PM CHIEF PROCUREMENT OFFICER 4,200 mg 1.8 mL/hr fluorouracil (ADRUCIL) IV syringe 700 mg 14 mL 700 mg (rounded from 696 mg = 300 mg/m2 ? 2.32 m2 Treatment Plan BSA from Recorded weight), intravenous, Administer over 5 Minutes, Once, On Sat05/07/18 at 1430, For 1 dose, IrritantIndications:Raheel russo neoplasm of descending colon (CMS/HCC) (HCC) New Bag 05/07/2018 2:11 PM CHIEF PROCUREMENT OFFICER 700 mg leucovorin 700 mg in dextrose 5% 250 mL IVPB 700 mg (rounded from 696 mg = 300 mg/m2 ? 2.32 m2 Treatment Plan BSA from Recorded weight), intravenous, at 132 mL/hr, Administer over 2 Hours, Once, On Sat05/07/18 at 1230, For 1 dose, Run concurrently with oxaliplatin. Do not exceed rate of 160 mg/min. 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) New Bag 05/07/2018 11:56 AM CHIEF PROCUREMENT OFFICER 700 mg 132 mL/h r palonosetron injection 250 mcg 250 mcg (0.25 mg), intravenous, Once, On Sat05/07/18 at 1200, For 1 dose, For IV push, administer over 30 seconds.Indications:Maligna nt neoplasm of descending colon (CMS/HCC) (HCC) Given 05/07/2018 11:33 AM CHIEF PROCUREMENT OFFICER 250 mcg documented in this encounter Orders Medications Ordered That Jefferson ht Not Have Been Administered Count Last Ordered Date First Ordered Date dextrose 5% infusion 05/07/2018 fosaprepitant (EMEND) 150 mg in sodium chloride 0.9% 150 mL IVPB 1 05/07/2018 Nursing Count Last Ordered Date First Orde red Date ONC NURSING COMMUNICATION NEUROPATHY 06/2018 ONCBCN TREATMENT PARAMETERS 2 05/07/2018 Appointment Requests Count Last Ordered Date Fi rst Ordered Date ONCBCN RETURN CHEMO 4HRS 05/07/2018 documented in this encounter Care Teams Supervisor General Relationship Specialty Start Date End Date Ravi Smith MD PCP - General 11/04/17 09/27/21 Aft, Kianna Machado MD PhD [address] [place] [address] Surgeon Surgical Oncology 11/22/17 Santiago Gilbert MD [address] [place] [address] Plumbing Manager Gastroenterology 11/22/17 documented as of this encounter
--- OUTSIDE RECORDS SUMMARY | 2024-04-24 13:50 | XMS_ITS | Encounter Summary ---
Author Organization [facility] Address [address] [place] [address] Phone Care Team Providers Care Silverware Etcher Name Role Phone Ravi Smith MD Primary Care Provider [phone] Aft, Kianna Machado MD PhD Unavailable [phone] Santiago Gilbert MD Unavailable [phone] Reason for Visit * Reason Comments OP Infusion IVF Encounter Details Date Type Department Care Team (Late st Contact Info) Description 05/01/2018 2:00 PM PIPE STEM ALIGNER Infusion [facility] [address] [place] [address] Malignant neoplasm of descending colon (CMS/HCC) (Primary [...] on file Legal Sex Female 1:06 AM PIPE STEM ALIGNER Gender Identity Not on file Sexual Orientation Not on file documented as of this encounter Last Filed Vital Signs Vital Sign Reading Time Taken Comments Blood Pressure 164/80 05/01/2018 1:49 PM PIPE STEM ALIGNER Pulse 129 05/01/2018 1:49 PM PIPE STEM ALIGNER Temperature 36.7 ??C (98.1 ??F) 05/01/2018 1:49 PM CS T Respiratory Rate 18 05/01/2018 1:49 PM PIPE STEM ALIGNER Oxygen Saturation 95% 05/01/2018 1:49 PM PIPE STEM ALIGNER Inhaled Oxygen Concentration - - Weight 103.6 kg (228 lb 4.8 oz) 05/01/2018 1:49 PM PIPE STEM ALIGNER Height - - Body Mass Index 34.71 04/23/2018 8:26 AM PIPE STEM ALIGNER documented in this encounter Nursing Notes * Xiomara Leary, LYDIA - 05/01/2018 2:00 PM CST Pt here for IVF. Pt reports feeling blah lately. Took one nausea pill today but no other complaints. Pt hoping fluids help her feel better. Port accessed without incident. IVF infusing at this time. Report given to Suzanne Parker STEM ALIGNER * Suzanne Calderón RN - 05/01/2018 2:00 PM CST Patient tolerated 1L NS well today. Pt states she felt better after NS and her color looks better. Port was flushed and hep locked, needle de accessed and gauze band aid over site. Patient dischargedstable. 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),Malignant neoplasm of upper-inner quadrant of left breast in female, estrogen receptor negative (HCC) New Bag 05/01/2018 2:15 PM PIPE STEM ALIGNER 1,000 mL 666.7 mL/hr documented in this encounter Orders Medications Ordered That Jefferson ht Not Have Been Administered Count Last Ordered Date First Ordered Date sodium chloride 0.9% flush 10 mL 1 05/01/20 18 Appointment Requests Count Last Ordered Date Fi rst Ordered Date ONCBCN INFUSION APPT REQUEST 1 05/01/2018 documented in this encounter Care Teams Silverware Etcher Relationship Specialty Start Date End Date Ravi Smith MD PCP - General 11/04/17 09/27/21 Aft, Kianna Machado MD PhD [address] [place] [address] Surgeon Surgical Oncology 11/22/17 Santiago Gilbert MD [address] [place] [address] Business Banking Officer Gastroenterology 11/22/17 documented as of this encounter
--- OUTSIDE RECORDS SUMMARY | 2024-04-24 13:50 | XMS_ITS | Encounter Summary ---
Author Organization [facility] Address [address] [place] [address] Phone Care Team Providers Care Resin Shaver Name Role Phone Ravi Smith MD Primary Care Provider [phone] Aft, Kianna Machado MD PhD Unavailable [phone] Santiago Gilbert MD Unavailable [phone] Encounter Details Date Type Department Care Team (Latest Contact Info) Description 04/10/2018 Orders Only [facility] Scanning, Provider Social History Tobacco Use Types Packs/Day Years Used Date Smoking Tobacco: Former Cigarettes 2015 Smokeless Tobacco: Never Alcohol Use Standard Drinks/Week Comments Yes 0 (1 standard drink = 0.6 oz pur e alcohol) socially Comments No Sex and Gender Information Value Date Recorded Sex Assigned at Not on file Legal Sex Female 1:06 AM FUNCTIONAL ANALYST Gender Identity Not on file Sexual Orientation Not on file documented as of this encounter Plan of Treatment Not on file documented as of this encounter Procedures Procedure Name Priority Date/Time Associated Diagnosis Comments CARDIOLOGY DOCUMENT SCAN 04/10/2018 documented in this encounter Results * SCAN - CARDIOLOGY (04/10/2018) Anatomical Region Laterality Modality Other us Provider Scanning CV CARDIAC SERVICES PROCEDURES Final Result documented in this encounter Visit Diagnoses Not on filedocumented in this encounter Care Teams Resin Shaver Relationship Specialty Start Date End Date Ravi Smith MD PCP - General 11/04/17 09/27/21 Aft, Kianna Machado MD PhD [address] [place] [address] Surgeon Surgical Oncology 11/22/17 Santiago Gilbert MD [address] [place] [address] Social Science Manager Gastroenterology 11/22/17 documented as of this encounter
--- OUTSIDE RECORDS SUMMARY | 2024-04-24 13:50 | XMS_ITS | Encounter Summary ---
Author Organization 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) Procedures CT chest abdomen pelvis with contrast Jamaica Montoya NP Phone: tel: fax: [facility] Referral ID Status Reason Start Date Expiration Date Visits Re quested Visits Authorized [id number] Closed 05/21/2018 05/28/2018 1 1 ITION FACULTY MEMBER Reason for Visit * Episode Based Medications (Routine) - Closed Specialty Diagnoses / Procedures Referred By Contronny t Referred To Contact Diagnoses 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) Procedures [id number]: (Fluorouracil / Leucovorin / Oxaliplatin) 14 Day Cycles Abbi Ventura MD [address] [place] [address] Phone: tel: fax: [facility] [address] [facility] [place] [address] Phone: tel: Referral ID Status Reason Start Date Expiration Date Visits Re quested Visits Authorized [id number] Closed 01/31/2018 05/05/2019 1 18 Encounter Details Date Type Department Care Team (Late st Contact Info) Description 05/21/2018 11:00 AM NUTRITION FACULTY MEMBER Office Visit [facility] [address] [place] [address] Abbi Ventura MD [address] [facility] [address] [place] [address] Malignant neoplasm of descending colon (CMS/HCC) Social History Tobacco Use Types Packs/Day Years Used Date Smoking Tobacco: Former Cigarettes 2015 Smokeless Tobacco: Never Alcohol Use Standard Drinks/Week Comments Yes 0 (1 standard drink = 0.6 oz pur e alcohol) socially Comments No Sex and Gender Information Value Date Recorded Sex Assigned at Not on file Legal Sex Female 1:06 AM NUTRITION FACULTY MEMBER Gender Identity Not on file Sexual Orientation Not on file documented as of this encounter Last Filed Vital Signs Vital Sign Reading Time Taken Comments Blood Pressure 140/67 05/21/2018 11:10 AM NUTRITION FACULTY MEMBER Pulse 98 05/21/2018 11:10 AM NUTRITION FACULTY MEMBER Temperature 36.6 ??C (97.9 ??F) 05/21/2018 11:[address] Respiratory Rate 16 05/21/2018 11:10 AM NUTRITION FACULTY MEMBER Oxygen Saturation 97% 05/21/2018 11:10 AM NUTRITION FACULTY MEMBER Inhaled Oxygen Concentration - - Weight 107 kg (236 lb) 05/21/2018 11:10 AM NUTRITION FACULTY MEMBER Height 172.7 cm (5' 8 ) 05/21/2018 11:10 AM NUTRITION FACULTY MEMBER Body Mass Index 35.88 05/21/2018 11:10 AM NUTRITION FACULTY MEMBER documented in this encounter Progress Notes * Jamaica Montoya, MARKETING COORDINATOR - 05/21/2018 11:00 AM CST Patient Identifying Data: Aleah Gerber is a 62 y.o. female seen in followup today DIAGNOSIS: 1. 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 Runscope My risk showed no mutation in [facility] [...] testing to Oxaliplatin on 03/03/18. Interval History Here for consideration of cycle 8 of 5FU/LV. Patient complains of lower leg weakness for several weeks. She says the leg weakness was more noticeable after this last cycle and that it started 3 days after she had the pumped removed and last through through day 13. She says she can only walk 10 steps and then she has to rest her legs before she can walk again. She voices numbness to the left hand ulnar side down through her pinky finger. She also voices a left hand tremors which is more noticable when she is carrying her grocery bags but has fine tremors to both hands. She voices nausea which she manages with compazine. No other concerns. Review of Systems Review of systems positive for symptoms as per interval history. All other review of systems negative. Objective Vitals: Vitals BP 140/67 (BP Location: Right arm) Pulse 98 Temp 36.6 ??C (97.9 ??F) (Oral) Resp 16 Ht 172.7 cm (5' 8 ) Wt 107 kg (236 lb) SpO2 97% BMI 35.88 kg/m?? PERFORMANCE STATUS: ECOG 1 SKIN: Normal [...] walking and pick small objects without difficulty. Fine hand tremors. LYMPH NODES: The patient has no cervical, [...] aredisplayed. Labs - Hematology Latest Ref Range 04/09/18 04/23/18 05/07/18 05/21/18 WBC 3.8 - 9.9 K/cumm 3.6 (A) 3.6 (A) 3.3 (A) 4.8 Total Hb, POC 11.9 - 15.5 g/dL 10.8 (A) 9.8 (A) 9.6 (A) 9.5 (A) Hct 35.6 - 45.5 % 32.2 (A) 29.3 (A) 27.9 (A) 28.0 (A) Plt 150 - 400 K/cumm 131 (A) 80 (A) 84 (A) 87 (A) Neutrophil abs 1.7 - 6.5 K/cumm 1.6 (A) 1.8 1.6 (A) 3.0 (A) Abnormal value Chemistry Component Value Date/Time SODIUM 140 05/21/2018 1020 POTASSIUM 3.9 05/21/2018 1020 CHLORIDE 103 05/21/2018 1020 CO2 23 05/21/2018 1020 BUNSER 19 05/21/2018 1020 CREATININE 0.95 05/21/2018 1020 GLUCOSE 243 (H) 05/21/2018 1020 Component Value Date/Time CALCIUM 9.4 05/21/2018 1020 ALKPHOS 92 05/21/2018 1020 AST 48 (H) 05/21/2018 1020 ALT 45 05/21/2018 1020 BILITOT 0.8 05/21/2018 1020 Tumor Marker History Some values may be hidden. Unless noted otherwise, only the newest values recorded on each date aredisplayed. Tumor Markers Latest Ref Range 02/06/18 03/19/18 04/09/18 05/07/18 CEA 0.0 - 5.0 ng/mL 1.4 4.8 4.2 5.0 Comments are available for some flowsheets but are not being displayed. Recent labs, radiology and pathology reviewed in [facility] ASSESSMENT: T4bN0 disease, Stage IIC colon adenocarcinoma: Tolerating 5FU/LV at 25% well except for grade 1 fatigue, nausea, and muscle weakness to lower legs. On 04/23/2018 Oxaliplatin discontinued after patient experienced tongue swelling and throat closing: skin testing negative to Oxaliplatin on 03/03/18. Heart palpitations and SOB without chest pain/tightness: Patient encouraged to schedule with scrap hoist operator for further evaluation. 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 [facility] positive for BRCA2 mutation, and VUS in BRIP1 and NBN Depression/anxiety: follow up with Dr. Simms PLAN: Receive cycle 8 with 5FU/LV at 25% reduced dose. RTC in 2 weeks for office visit with scans. Patient instructed to schedule office visit with Dr. Bunch to discuss breast surgery options. Refer to neurology for further evaluation of lower leg weakness and fine tremors to hands. We will plan to see patient back for follow up visit 2 weeks after she has surgery. JENNIFFER Ly Nurse Practitioner for Dr. Abbi Ventura Medical Oncology [facility] ITION FACULTY MEMBER documented in this encounter Plan of Treatment Not on file documented as of this encounter Results * CT chest abdomen pelvis with contrast (05/28/2018 11:34 AM NUTRITION FACULTY MEMBER) Anatomical Region Laterality Modality Body N/A Computed Tomogra phy 05/28/2018 12:0 5 PM NUTRITION FACULTY MEMBER Impressions 05/28/2018 12:15 PM NUTRITION FACULTY MEMBER 1. Extensive acute pulmonary embolism as described above. ??Right lower extremity deep vein thrombosis. 2. ??No evidence of metastatic disease involving chest, abdomen or pelvis. The Critical results were discussed with Dr. Ventura by Dr. Lobo on 05/28/2018 at 12:02 PM. Dictated by: Aretha Lobo M.D. Electronically signed by: Juaquin Reyes M.D., MPH Narrative 05/28/2018 12:15 PM NUTRITION FACULTY MEMBER EXAMINATION: ??Computed tomography of the chest, abdomen [...] by: Juaquin Reyes M.D., MPH Jamaica Montoya MARKETING COORDINATOR IMG CT PROCEDURES Final Re sult documented in this encounter Visit Diagnoses Diagnosis Malignant neoplasm of descending colon (CMS/HCC) (HCC) Malignant neoplasm of descending colon Malignant neoplasm of descending colon (CMS/HCC) (HCC) Malignant neoplasm of descending colon documented in this encounter Orders Appointment Requests Count Last Ordered Date Fi rst Ordered Date ONCBCN CLINIC APPOINTMENT REQUEST 2 019 05/21/2018 ONCBCN LAB APPOINTMENT 1 06/04/2018 documented in this encounter Care Teams Ekg Manager Relationship Specialty Start Date End Date Ravi Smith MD PCP - General 11/04/17 09/27/21 Aft, Kianna Machado MD PhD [address] [place] [address] Surgeon Surgical Oncology 11/22/17 Santiago Gilbert MD [address] [place] [address] Taper Operator Gastroenterology 11/22/17 documented as of this encounter
--- OUTSIDE RECORDS SUMMARY | 2024-04-24 13:50 | XMS_ITS | Encounter Summary ---
Author Organization [facility] Address [address] [place] [address] Phone Care Team Providers Care Executive Vice President Of Sales Name Role Phone Ravi Smith MD Primary Care Provider [phone] Aft, Kianna Machado MD PhD Unavailable [phone] Santiago Gilbert MD Unavailable [phone] Encounter Details Date Type Department Care Team (Late st Contact Info) Description 04/17/2018 Telephone [facility] [address] [place] [id number] Fatemeh Zarate, RN Social History Tobacco Use Types Packs/Day Years Used Date Smoking Tobacco: Former Cigarettes 2015 Smokeless Tobacco: Never Alcohol Use Standard Drinks/Week Comments Yes 0 (1 standard drink = 0.6 oz pur e alcohol) socially Comments No Sex and Gender Information Value Date Recorded Sex Assigned at Not on file Legal Sex Female 1:06 AM CORDWOOD CUTTER HELPER Gender Identity Not on file Sexual Orientation Not on file documented as of this encounter Miscellaneous Notes * Telephone Encounter - Fatemeh Zarate RN - 04/17/2018 4:11 PM CST ----- Message from Rosalba Jones RN sent at 04/17/2018 8:25 AM CORDWOOD CUTTER HELPER ----- Regarding: FW: Non-Urgent Medical Question Contact: ----- Message ----- From: Aleah Gerber Sent: 04/17/2018 12:40 AM To: Chino Ventura Clinical Support Subject: Non-Urgent Medical Question I think I may have a yeast infection. Both mouth and vaginal.,ok to go to my gp to get it checked out? Roof of mouth down throat gums, all see to be inflamed today is the worst of the 4 days. Bag has been itching for 4 days as well. Rinsing mouth at least 4x day with salt/baking soda water. Trying to stay hydrated as well. Please advise. having surgery so won???t be going until Saturday if that???s where I should go., Aleah Gerber 04/17/18 Spoke to pt by phone. Per Dr. Ventura, filled script for diflucan 100mg once daily for 7 days and script for magic mouthwash per pt is c/o ulcers on jenae. Pt will call me if no improvement of symptoms. DB WOOD CUTTER HELPER WOOD CUTTER HELPER documented in this encounter Plan of Treatment Not on file documented as of this encounter Visit Diagnoses Not on filedocumented in this encounter Care Teams Executive Vice President Of Sales Relationship Specialty Start Date End Date Ravi Smith MD PCP - General 11/04/17 09/27/21 Aft, Kianna Machado MD PhD [address] [place] [address] Surgeon Surgical Oncology 11/22/17 Santiago Gilbert MD [address] [place] [address] Vocational Adviser Gastroenterology 11/22/17 documented as of this encounter
--- OUTSIDE RECORDS SUMMARY | 2024-04-24 13:50 | XMS_ITS | Encounter Summary ---
Author Organization [facility] Address [address] [place] [address] Phone Care Team Providers Care Cash On Delivery Clerk Name Role Phone Ravi Smith MD Primary Care Provider [phone] Aft, Kianna Machado MD PhD Unavailable [phone] Santiago Gilbert MD Unavailable [phone] Reason for Visit * Reason Comments staff visit disconnect pump for evaluation Encounter Details Date Type Department Care Team (Late st Contact Info) Description 04/10/2018 3:00 PM SPINE NURSE Clinical Support [facility] Oncology [address] [place] [address] Social History Tobacco Use Types Packs/Day Years Used Date Smoking Tobacco: Former Cigarettes 2015 Smokeless Tobacco: Never Alcohol Use Standard Drinks/Week Comments Yes 0 (1 standard drink = 0.6 oz pur e alcohol) socially Comments No Sex and Gender Information Value Date Recorded Sex Assigned at Not on file Legal Sex Female 1:06 AM SPINE NURSE Gender Identity Not on file Sexual Orientation Not on file documented as of this encounter Nursing Notes * Kristin Walters - 04/10/2018 3:00 PM CST Patient presents today with CADD pump malfunctioning. Pump reads high pressure alarm when running. Patient reports this happened around 8:30am, states she called [facility] homecare and was told to turn off the pump and come in to [facility] for further evaluation. Pump delivered ~40mL of 5FU out of 111mL.Disconnected, PAC would not flush and no blood return noted. Patient reports tenderness on and around port site, and noted slight swelling. PAC de-accessed and notified Dr. Ventura to assess further. Dr. Ventura ordered the pt to get an ultrasound next door to rule out a blood clot. E NURSE * Rhoda Jo - 04/10/2018 3:00 PM CST Patient came back after being evaluated with doppler. No clot found. Informed Dr. Ventura, she wantspatient to be evaluated by IR, tomorrow morning. If they are able to get port functioning, then patient is to resume the rest of her 5FU pump per Dr. Ventura. Informed patient that Mag with Dr. Ventura's team will call her and let her know when her appointment is tomorrow and that she would be hooked up again tomorrow if the port is functioning. E NURSE documented in this encounter Plan of Treatment Not on file documented as of this encounter Visit Diagnoses Not on filedocumented in this encounter Care Teams Cash On Delivery Clerk Relationship Specialty Start Date End Date Ravi Smith MD PCP - General 11/04/17 09/27/21 Aft, Kianna Machado MD PhD [address] [place] [address] Surgeon Surgical Oncology 11/22/17 Santiago Gilbert MD [address] [place] [address] Paper Cap Machine Operator Gastroenterology 11/22/17 documented as of this encounter
--- OUTSIDE RECORDS SUMMARY | 2024-04-24 13:51 | XMS_ITS | Encounter Summary ---
Author Organization [facility] Address [address] [place] [address] Phone Care Team Providers Care Investigator Welfare Name Role Phone Ravi Smith MD Primary Care Provider [phone] Aft, Kianna Machado MD PhD Unavailable [phone] Santiago Gilbert MD Unavailable [phone] Encounter Details Date Type Department Care Team (Late st Contact Info) Description 03/14/2018 Orders Only [facility] Oncology [address] [place] [address] Abbi Ventura MD [address] 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 Take the AM of 03/15/18. 2 tablet 03/14/2018 8 documented in this encounter Plan of Treatment Not on file documented as of this encounter Visit Diagnoses Diagnosis Hypokalemia- Primary Hypopotassemia documented in this encounter Care Teams Investigator Welfare Relationship Specialty Start Date End Date Ravi Smith MD PCP - General 11/04/17 09/27/21 Aft, Kianna Machado MD PhD [address] [place] [address] Surgeon Surgical Oncology 11/22/17 Santiago Gilbert MD [address] [place] [address] Pilot Boat Operator Gastroenterology 11/22/17 documented as of this encounter
--- OUTSIDE RECORDS SUMMARY | 2024-04-24 13:51 | XMS_ITS | Encounter Summary ---
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) Procedures mFOLFOX6: (Fluorouracil / Leucovorin / Oxaliplatin) 14 Day Cycles Abbi Ventura MD 10 [facility] [address] [place] [address] Phone: tel: fax: [facility] Oncology [address] [place] [address] Phone: tel: Referral ID Status Reason Start Date Expiration Date Visits Re quested Visits Authorized [id number] Closed 01/31/2018 05/05/2019 1 18 Encounter Details Date Type Department Care Team (Latest Contact Info) Description 04/09/2018 9:45 AM ULTRASONIC SEAMING MACHINE OPERATOR Clinical Support [facility] Oncology [address] [place] [address] Malignant neoplasm of descending colon (CMS/HCC) Social History Tobacco Use Types Packs/Day Years Used Date Smoking Tobacco: Former Cigarettes 1 2015 Smokeless Tobacco: Never Alcohol Use Standard Drinks/Week Comments Yes 0 (1 standard drink = 0.6 oz pur e alcohol) socially Comments No Sex and Gender Information Value Date Recorded Sex Assigned at Not on file Legal Sex Female 1: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 Gender Identity Not on file Sexual Orientation Not on file documented as of this encounter Plan of Treatment Not on file documented as of this encounter Procedures Procedure Name Priority Date/Time Associated Diagnosis Comments DIFFERENTIAL AUTO Routine 04/09/2018 10: 12 AM ULTRASONIC SEAMING MACHINE OPERATOR Malignant neoplasm of descending colon (CMS/HCC) CBC WITH AUTO DIFFERENTIAL Routine 04/09/2018 10:12 AM ULTRASONIC SEAMING MACHINE OPERATOR Malignant neoplasm of descending colon (CMS/HCC) CEA Routine 04/09/2018 10:12 AM ULTRASONIC SEAMING MACHINE OPERATOR Malignant neoplasm of descending colon (CMS/HCC) COMPREHENSIVE METABOLIC PANEL STAT 04/09/2018 10:12 AM ULTRASONIC SEAMING MACHINE OPERATOR Malignant neoplasm of descending colon (CMS/HCC) documented in this encounter Results * (ABNORMAL) Differential, auto (04/09/2018 10:12 AM ULTRASONIC SEAMING MACHINE OPERATOR) Neutrophil abs 1.6(L) 1.7 - 6.5 K/cumm [facility] Imm gran abs 0.0 0.0 - 0.1 K/cumm [facility] Lymphocyte abs 1.3 0.8 - 3.3 K/cumm [facility] Monocyte abs 0.4 0.2 - 0.8 K/cumm [facility] Eosinophil abs 0.3 0.0 - 0.5 K/cumm [facility] Basophil abs 0.0 0.0 - 0.1 K/cumm [facility] Neutrophil pct 43.0 % [facility] Comment: Interpretive Data Percent cell count reference ranges are not reported, since discordance with absolute values may lead to misinterpretation of CBC data. Current Interpretive Data was last revised on 2017. Imm gran pct 0.6 % [facility] Comment: Interpretive Data Percent cell count reference ranges are not reported, since discordance with absolute values may lead to misinterpretation of CBC data. Current Interpretive Data was last revised on 2017. Lymphocyte pct 36.7 % [facility] Comment: Interpretive Data Percent cell count reference ranges are not reported, since discordance with absolute values may lead to misinterpretation of CBC data. Current Interpretive Data was last revised on 2017. Monocyte pct 10.8 % [facility] Comment: Interpretive Data Percent cell count reference ranges are not reported, since discordance with absolute values may lead to misinterpretation of CBC data. Current Interpretive Data was last revised on 2017. Eosinophil pct 7.5 % [facility] Comment: Interpretive Data Percent cell count reference ranges are not reported, since discordance with absolute values may lead to misinterpretation of CBC data. Current Interpretive Data was last revised on 2017. Basophil pct 1.4 % [facility] Comment: Interpretive Data Percent cell count reference ranges are not reported, since discordance with absolute values may lead to misinterpretation of CBC data. Current Interpretive Data was last revised on 2017. Blood specimen (specimen) 04/09/2018 10:12 AM ULTRASONIC SEAMING MACHINE OPERATOR 04/09/2018 10:20 AM ULTRASONIC SEAMING MACHINE OPERATOR Narrative [facility] - 04/09/2018 10:23 AM ULTRASONIC SEAMING MACHINE OPERATOR us Abbi Ventura MD LAB BLOOD ORDERABLES Final Resul t [facility] [place] [address] * (ABNORMAL) CBC with auto differential (04/09/2018 10:12 AM ULTRASONIC SEAMING MACHINE OPERATOR) WBC 3.6(L) 3.8 - 9.9 K/cumm [facility] Hgb 10.8(L) 11.9 - 15.5 g/dL [facility] Hct 32.2(L) 35.6 - 45.5 % [facility] Plt 131(L) 150 - 400 K/cumm [facility] MPV 8.8(L) 9.1 - 12.3 fL [facility] RBC 3.44(L) 3.90 - 5.20 M/cumm [facility] MCV 93.6 81.3 - 96.4 fL [facility] MCH 31.4 27.1 - 33.3 pg [facility] MCHC 33.5 32.3 - 35.7 g/dL [facility] RDW CV 16.7(H) 11.1 - 14.9 % [facility] RDW SD 55.3(H) 35.7 - 48.1 fL [facility] NRBC abs 0.00 0.00 - 0.01 K/cumm [facility] Blood specimen (specimen) 04/09/2018 10:12 AM ULTRASONIC SEAMING MACHINE OPERATOR 04/09/2018 10:20 AM ULTRASONIC SEAMING MACHINE OPERATOR Narrative [facility] - 04/09/2018 10:23 AM ULTRASONIC SEAMING MACHINE OPERATOR us Abbi Ventura MD LAB BLOOD ORDERABLES Final Resul t [facility] [place] [address] * (ABNORMAL) Comprehensive metabolic panel (04/09/2018 10:12 AM ULTRASONIC SEAMING MACHINE OPERATOR) Sodium 138 135 - 145 mmol/L [facility] Potassium, pl 4.0 3.3 - 4.9 mmol/L [facility] Chloride 104 97 - 110 mmol/L [facility] CO2 23 22 - 32 mmol/L [facility] Anion gap 11 2 - 15 mmol/L [facility] BUN 23 8 - 25 mg/dL [facility] Creatinine 1.16(H) 0.60 - 1.10 mg/dL [facility] Glucose 201(H) 70 - 199 mg/dL [facility] Comment: Interpretive Data Fasting glucose [...] Calcium 9.4 8.5 - 10.3 mg/dL [facility] Bilirubin, total 0.6 0.1 - 1.2 mg/dL [facility] Protein, pl 6.8 6.5 - 8.5 g/dL [facility] Albumin 4.1 3.5 - 5.0 g/dL [facility] Alk phos 94 40 - 130 Units/L [facility] ALT 30 7 - 45 Units/L [facility] AST 30 10 - 45 Units/L [facility] Blood specimen (specimen) 04/09/2018 10:12 AM ULTRASONIC SEAMING MACHINE OPERATOR 04/09/2018 10:20 AM ULTRASONIC SEAMING MACHINE OPERATOR Narrative [facility] - 04/09/2018 10:38 AM ULTRASONIC SEAMING MACHINE OPERATOR Abbi Ventura MD LAB BLOOD ORDERABLES Final Resul t Performing Organization Address [facility] de Phone Number [facility] [place] [address] * CEA (04/09/2018 10:12 AM ULTRASONIC SEAMING MACHINE OPERATOR) CEA 4.2 0.0 - 5.0 ng/mL [facility] Comment: Interpretative Data: Reference Range: Non-Smokers: 0.0 - 5.0 ng/mL Smokers: 0.0 ? 6.5 ng/mL This test was developed and its performance characteristics determined by the [facility] in a manner consistent with CLIA requirements. This test has not been cleared or approved by the U.S. Food and Drug Administration. Current interpretive data was last revised 2018. 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
--- OUTSIDE RECORDS SUMMARY | 2024-04-24 13:51 | XMS_ITS | Encounter Summary ---
Author Organization 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) Procedures mFOLFOX6: (Fluorouracil / Leucovorin / Oxaliplatin) 14 Day Cycles Abbi Ventura MD [address] [place] [address] [address] [place] [address] Phone: tel: fax: [facility] Oncology [address] [place] [address] Phone: tel: Referral ID Status Reason Start Date Expiration Date Visits Re quested Visits Authorized [id number] Closed 01/31/2018 05/05/2019 1 18 Encounter Details Date Type Department Care Team (Late st Contact Info) Description 03/19/2018 10:30 AM PLATE CUTTER Infusion [facility] Oncology [address] [place] [address] Hypokalemia (Primary Dx); Malignant neoplasm of descending colon (CMS/HCC); Dehydration; Malignant neoplasm of upper-inner quadrant of [...] on file Legal Sex Female 1:06 AM PLATE CUTTER Gender Identity Not on file Sexual Orientation Not on file documented as of this encounter Last Filed Vital Signs Vital Sign Reading Time Taken Comments Blood Pressure 120/78 03/19/2018 1:24 PM PLATE CUTTER Pulse 106 03/19/2018 1:24 PM PLATE CUTTER Temperature - - Respiratory Rate - - Oxygen Saturation - - Inhaled Oxygen Concentration - - Weight - - Height - - Body Mass Index - - documented in this encounter Nursing Notes * Tiffany Pina RN - 03/19/2018 10:30 AM CST Pt arrived to pod for ivf/kcl. Tx held today, pump given to pharmacy. Pt c/o diarrhea over last week; K+=2.8 today and given 40mEq. Orthostatic BP completed prior to and end of 1L NS; see VS FS (stable). Pt tolerated tx well today. Unable to produce stool while here, specimen supplies provided to take home. 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) Malignant neoplasm of descending colon Dehydration Malignant neoplasm of upper-inner quadrant of left breast in female, estrogen receptor negative (HCC) documented in this encounter Administered Medications Inactive Administered Medications - up to 3 most recent administrations Medication Order MAR Action Action Date Dose Rate Site potassium chloride 40 mEq in sodium chloride 0.9% 500 mL IVPB 40 mEq, intravenous, at 130 mL/hr, Administer over 4 Hours, Once, On Sat03/19/18 at 1145, For 1 doseIndications:Hypokalemia ,Malignant neoplasm of upper-inner quadrant of left breast in female, estrogen receptor negative (HCC) New Bag 03/19/2018 11:35 AM PLATE CUTTER 40 mEq 130 mL/hr sodium chloride 0.9% bolus 1,000 mL 1,000 mL, intravenous, at 666.7 mL/hr, Administer over 90 Minutes, Once, On Sat03/19/18 at 1145, For 1 dose, Please check orthostatic b/p pre and post infusion.Indications:Dehydr ation,Malignant neoplasm of descending colon (CMS/HCC) (HCC),Malignant neoplasm of upper-inner quadrant of left breast in female, estrogen receptor negative (HCC) New Bag 03/19/2018 11:15 AM PLATE CUTTER 1,000 mL 666.7 mL/hr documented in this encounter Orders Appointment Requests Count Last Ordered Date Fi rst Ordered Date ONCBCN LAB APPOINTMENT 1 03/25/2018 ONCBCN RETURN CHEMO 4HRS 2 03/25/2018 documented in this encounter Care Teams Tool Maintenance Technician Relationship Specialty Start Date End Date Ravi Smith MD PCP - General 11/04/17 09/27/21 Aft, Kianna Machado MD PhD [address] [place] [address] Surgeon Surgical Oncology 11/22/17 Santiago Gilbert MD [address] [place] [address] Director Of Retail Analytics Gastroenterology 11/22/17 documented as of this encounter
--- OUTSIDE RECORDS SUMMARY | 2024-04-24 13:51 | XMS_ITS | Encounter Summary ---
Author Organization [facility] Address [address] [place] [address] Phone Care Team Providers Care Office Asst Name Role Phone Ravi Smith MD Primary Care Provider [phone] Aft, Kianna Machado MD PhD Unavailable [phone] Santiago Gilbert MD Unavailable [phone] Encounter Details Date Type Department Care Team (Late st Contact Info) Description 03/25/2018 Orders Only [facility] Oncology [address] [place] [address] Abbi Ventura MD 10 [facility] [address] [place] [address] Social History Tobacco Use Types Packs/Day Years Used Date Smoking Tobacco: Former Cigarettes 2015 Smokeless Tobacco: Never Alcohol Use Standard Drinks/Week Comments Yes 0 (1 standard drink = 0.6 oz pur e alcohol) socially Comments No Sex and Gender Information Value Date Recorded Sex Assigned at Not on file Legal Sex Female 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
--- OUTSIDE RECORDS SUMMARY | 2024-04-24 13:51 | XMS_ITS | Encounter Summary ---
Author Organization [facility] Address [address] [place] [address] Phone Care Team Providers Care Unix Analyst Name Role Phone Ravi Smith MD Primary Care Provider [phone] Aft, Kianna Machado MD PhD Unavailable [phone] Santiago Gilbert MD Unavailable [phone] Encounter Details Date Type Department Care Team (Late st Contact Info) Description 03/25/2018 Orders Only [facility] Oncology [address] [place] [address] Abbi Ventura MD 10 [facility] [address] [place] [address] Social History Tobacco Use Types Packs/Day Years Used Date Smoking Tobacco: Former Cigarettes 2015 Smokeless Tobacco: Never Alcohol Use Standard Drinks/Week Comments Yes 0 (1 standard drink = 0.6 oz pur e alcohol) socially Comments No Sex and Gender Information Value Date Recorded Sex Assigned at Not on file Legal Sex Female 1:06 AM TALENT ACQUISITION COORDINATOR Gender Identity Not on file Sexual Orientation Not on file documented as of this encounter Plan of Treatment Not on file documented as of this encounter Visit Diagnoses Not on filedocumented in this encounter Care Teams Unix Analyst Relationship Specialty Start Date End Date Ravi Smith MD PCP - General 11/04/17 09/27/21 Aft, Kianna Machado MD PhD [address] [place] [address] Surgeon Surgical Oncology 11/22/17 Santiago Gilbert MD [address] [place] [address] Slide Maker Gastroenterology 11/22/17 documented as of this encounter
--- OUTSIDE RECORDS SUMMARY | 2024-04-24 13:51 | XMS_ITS | Encounter Summary ---
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) Procedures [id number]: (Fluorouracil / Leucovorin / Oxaliplatin) 14 Day Cycles Abbi Ventura MD [address] [place] [address] Phone: tel: fax: [facility] [address] [place] [address] Phone: tel: Referral ID Status Reason Start Date Expiration Date Visits Re quested Visits Authorized [id number] Closed 01/31/2018 05/05/2019 1 18 Encounter Details Date Type Department Care Team (Late st Contact Info) Description 03/19/2018 9:45 AM PROPOSAL COORDINATOR Office Visit [facility] [address] [place] [address] Abbi Ventura MD [address] [place] [address] Malignant neoplasm of descending colon [...] on file Legal Sex Female 1:06 AM PROPOSAL COORDINATOR Gender Identity Not on file Sexual Orientation Not on file documented as of this encounter Last Filed Vital Signs Vital Sign Reading Time Taken Comments Blood Pressure 139/87 03/19/2018 10:05 AM PROPOSAL COORDINATOR Pulse 128 03/19/2018 10:05 AM PROPOSAL COORDINATOR Temperature 36.8 ??C (98.3 ??F) 03/19/2018 10:[address] Respiratory Rate 18 03/19/2018 10:05 AM PROPOSAL COORDINATOR Oxygen Saturation 94% 03/19/2018 10:05 AM PROPOSAL COORDINATOR Inhaled Oxygen Concentration - - Weight 102.5 kg (226 lb) 03/19/2018 10:05 AM PROPOSAL COORDINATOR Height 172.7 cm (5' 8 ) 03/19/2018 10:05 AM PROPOSAL COORDINATOR Body Mass Index 34.36 03/19/2018 10:05 AM PROPOSAL COORDINATOR documented in this encounter Progress Notes * Abbi Ventura MD - 03/19/2018 9:45 AM CST Patient Identifying Data: Aleah Gerber [...] the patient does not have Grullon syndrome. TREATMENT HISTORY: 1.In March 2017 she had [...] 25% and 5FU/LV continued at full dose Interval History C/o significant diarrhea for the last 10 days. C/o abdominal discomfort on and off. She says that her diarrhea is foul smelling. She is still having 5 to 6 BM per day. She feels that oxaliplatin is causing the diarrhea and well as makes her irritable. She wants to receive next cycle of chemotherapywithout oxaliplatin and see how it goes. She had mild fatigue, cold sensitivity after last cycle ofchemotherapy lasting a few days. She did not have the motor neuropathy that she had with cycle 2. No other complaints. Review of Systems Review of systems positive for symptoms as per interval history. All other review of systems negative. Objective Vitals: Vitals BP 139/87 (BP Location: Left arm) Pulse (!) 128 Temp 36.8 ??C (98.3 ??F) (Oral) Resp 18 Ht 172.7 cm (5' 8 ) Wt 102.5 kg (226 lb) SpO2 94% BMI 34.36 kg/m?? PERFORMANCE STATUS: ECOG 2 SKIN: Normal turgor, normal texture. No petechia, [...] aredisplayed. Labs - Hematology Latest Ref Range 02/06/18 02/20/18 03/06/18 03/19/18 WBC 3.8 - 9.9 K/cumm 7.0 4.3 7.6 3.6 (A) Total Hb, POC 11.9 - 15.5 g/dL 10.9 (A) 10.5 (A) 11.3 (A) 12.4 Hct 35.6 - 45.5 % 33.1 (A) 31.8 (A) 33.4 (A) 35.5 (A) Plt 150 - 400 K/cumm 153 114 (A) 107 (A) 121 (A) Neutrophil abs 1.7 - 6.5 K/cumm 4.6 2.4 5.1 1.1 (A) (A) Abnormal value Chemistry Component Value Date/Time SODIUM 139 03/19/2018 0923 POTASSIUM 2.8 (L) 03/19/2018 0923 CHLORIDE 102 03/19/2018 0923 CO2 24 03/19/2018 0923 BUNSER 14 03/19/2018 0923 CREATININE 1.21 (H) 03/19/2018 0923 GLUCOSE 234 (H) 03/19/2018 0923 Component Value Date/Time CALCIUM 9.0 03/19/2018 0923 ALKPHOS 88 03/19/2018 0923 AST 39 03/19/2018 0923 ALT 35 03/19/2018 0923 BILITOT 0.6 03/19/2018 0923 Tumor Marker History Some values may be hidden. Unless noted otherwise, only the newest values recorded on each date aredisplayed. Tumor Markers Latest Ref Range 01/28/18 02/06/18 CEA 0.1 - 5.0 ng/mL 1.59 1.4 Comments are available for some flowsheets but are not being displayed. Recent labs, radiology and pathology reviewed in [facility] ASSESSMENT: T4bN0 disease, Stage IIC colon adenocarcinoma: tolerated cycle 3 of FOLFOX well except for grade 1 fatigue, cold sensitivity and grade 2 diarrhea T2N0, 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 [employer] panel is positive for BRCA2 mutation, and VUS in BRIP1 and NBN Depression/anxiety: follow up with Dr. Simms PLAN: Hold chemotherapy today I am hoping she will feel better with IV fluids and IV Kcl today RTC next week if feeling better and she will receive Cycle 4 of adjuvant chemotherapy with 5FU/LV. I am holding oxaliplatin at patient request RTC in 3 weeks to see me before cycle 5 of chemotherapy with 5FU/LV versus FOLFOX. We will decide based on how she tolerates cycle 4 Abbi Ventura MD Bobbin Diskerenroute controller Division of Oncology Section of Medical Oncology [facility] Intermediate Manager completed by using [employer] Direct speaking software, therefore, transcriptionvariances may occur. OSAL COORDINATOR documented in this encounter Plan of Treatment Not on file documented as of this encounter Results * (ABNORMAL) Comprehensive metabolic panel (04/09/2018 10:12 AM PROPOSAL COORDINATOR) Sodium 138 135 - 145 mmol/L [facility] Potassium, pl 4.0 3.3 - 4.9 mmol/L [facility] Chloride 104 97 - 110 mmol/L [facility] CO2 23 22 - 32 mmol/L [facility] Anion gap 11 2 - 15 mmol/L [facility] BUN 23 8 - 25 mg/dL [facility] Creatinine 1.16(H) 0.60 - 1.10 mg/dL [facility] Glucose 201(H) 70 - 199 mg/dL [facility] Comment: Interpretive Data Fasting glucose >/= [...] 2017. Calcium 9.4 8.5 - 10.3 mg/dL [facility] Bilirubin, total 0.6 0.1 - 1.2 mg/dL [facility] Protein, pl 6.8 6.5 - 8.5 g/dL [facility] Albumin 4.1 3.5 - 5.0 g/dL [facility] Alk phos 94 40 - 130 Units/L [facility] ALT 30 7 - 45 Units/L [facility] AST 30 10 - 45 Units/L [facility] Blood specimen (specimen) 04/09/2018 10:12 AM PROPOSAL COORDINATOR 04/09/2018 10:20 AM PROPOSAL COORDINATOR Narrative [facility] - 04/09/2018 10:38 AM PROPOSAL COORDINATOR Abbi Ventura MD LAB BLOOD ORDERABLES Final Resul t Performing Organization Address [facility] de Phone Number [facility] [place] [address] * CEA (04/09/2018 10:12 AM PROPOSAL COORDINATOR) Pathologist [facility] CEA 4.2 0.0 - 5.0 ng/mL [facility] Comment: Interpretative Data: Reference Range: Non-Smokers: 0.0 - 5.0 ng/mL Smokers: 0.0 ? 6.5 ng/mL This test was developed and its performance characteristics determined by the [facility] in a manner consistent with CLIA requirements. This test has not been cleared or approved by the U.S. Food and Drug Administration. Current interpretive data was last revised 2018. Blood specimen (specimen) 04/09/2018 10:12 AM PROPOSAL COORDINATOR 04/09/2018 11:26 AM PROPOSAL COORDINATOR Narrative [facility] - 04/09/2018 12:05 PM PROPOSAL COORDINATOR Abbi Ventura MD LAB BLOOD ORDERABLES Final Resul t Performing Organization Address [facility] de Phone Number [facility] Department [place] [address] * (ABNORMAL) CBC with auto differential (04/09/2018 10:12 AM PROPOSAL COORDINATOR) Pathologist [facility] WBC 3.6(L) 3.8 - 9.9 K/cumm [facility] Hgb 10.8(L) 11.9 - 15.5 g/dL [facility] Hct 32.2(L) 35.6 - 45.5 % [facility] Plt 131(L) 150 - 400 K/cumm [facility] MPV 8.8(L) 9.1 - 12.3 fL [facility] RBC 3.44(L) 3.90 - 5.20 M/cumm [facility] MCV 93.6 81.3 - 96.4 fL [facility] MCH 31.4 27.1 - 33.3 pg [facility] MCHC 33.5 32.3 - 35.7 g/dL [facility] RDW CV 16.7(H) 11.1 - 14.9 % [facility] RDW SD 55.3(H) 35.7 - 48.1 fL [facility] NRBC abs 0.00 0.00 - 0.01 K/cumm [facility] Blood specimen (specimen) 04/09/2018 10:12 AM PROPOSAL COORDINATOR 04/09/2018 10:20 AM PROPOSAL COORDINATOR Narrative [facility] - 04/09/2018 10:23 AM PROPOSAL COORDINATOR Abbi Ventura MD LAB BLOOD ORDERABLES Final Resul t [facility] Department [place] [address] documented in this encounter Visit Diagnoses Diagnosis 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)- Primary Malignant neoplasm of descending colon 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) Malignant neoplasm of descending colon documented in this encounter Orders Lab Orders Without Results Count Last Ordered D ate First Ordered Date CLOSTRIDIUM DIFFICILE ASSAY 1 03/19/2018 STOOL CULTURE 1 03/19/2018 Appointment Requests Count Last Ordered Date Fi rst Ordered Date ONCBCN CLINIC APPOINTMENT REQUEST 2 018 03/19/2018 ONCBCN LAB APPOINTMENT 1 04/09/2018 ONCBCN RETURN CHEMO 4HRS 1 04/09/2018 documented in this encounter Care Teams Double End Chucking Machine Operator Relationship Specialty Start Date End Date Ravi Smith MD PCP - General 11/04/17 09/27/21 Aft, Kianna Machado MD PhD [address] [place] [address] Surgeon Surgical Oncology 11/22/17 Santiago Gilbert MD [address] [place] [address] Career Center Advisor Gastroenterology 11/22/17 documented as of this encounter
--- OUTSIDE RECORDS SUMMARY | 2024-04-24 13:51 | XMS_ITS | Encounter Summary ---
Author Organization [facility] Address [address] [place] [address] Phone Care Team Providers Care Cigarette Examiner Name Role Phone Ravi Smith MD Primary Care Provider [phone] Aft, Kianna Machado MD PhD Unavailable [phone] Santiago Gilbert MD Unavailable [phone] Encounter Details Date Type Department Care Team (Late st Contact Info) Description 03/21/2018 Orders Only [facility] [address] [place] [address] Abbi Ventura MD [address] [facility] [address] [place] [address] Diarrhea, unspecified type (Primary Dx); Dehydration Social History Tobacco Use Types Packs/Day Years Used Date Smoking Tobacco: Former Cigarettes 2015 Smokeless Tobacco: Never Alcohol Use Standard Drinks/Week Comments Yes 0 (1 standard drink = 0.6 oz pur e alcohol) socially Comments No Sex and Gender Information Value Date Recorded Sex Assigned at Not on file Legal Sex Female 1:06 AM COMBAT CONTROL Gender Identity Not on file Sexual Orientation Not on file documented as of this encounter Plan of Treatment Not on file documented as of this encounter Results * Clostridium difficile assay Stool (03/21/2018 11:00 AM COMBAT CONTROL) Report Final Report: Negative for: Clostridium difficile toxin. [facility] Stool 03/21/2018 11:0 0 AM COMBAT CONTROL 03/21/2018 4:44 PM COMBAT CONTROL Narrative [facility] - 03/22/2018 5:27 AM COMBAT CONTROL Abbi Ventura MD LAB MICROBIOLOGY - GENERAL ORDER YFN Final Result Performing Organization Address [facility] Co de Phone Number [facility] [place] [address] * Stool culture Stool (03/21/2018 11:00 AM COMBAT CONTROL) Direct Specimen Exam Shiga Toxin Testing: Antigen detection assay for Shiga-toxin NEGATIVE for Shiga Toxin 1 and Shiga Toxin 2. [facility] Report Final Report: No growth of enteric bacterial pathogens [facility] Stool 03/21/2018 11:0 0 AM COMBAT CONTROL 03/21/2018 4:44 PM COMBAT CONTROL Narrative [facility] - 03/24/2018 10:23 AM COMBAT CONTROL Specimen was received in a sahara Segun transport tube. Testing performed by [facility] ([phone]). Routine stool cultures include procedures to detect Salmonella, Shigella, Edwardsiella, Aeromonas, Pleisiomonas, Campylobacter, Yersinia, E. coli O157, and Shiga-like toxins. ?? Vibrio is cultured only upon special request. ??If Vibrio is suspected, please call the laboratory at [phone]. Interpretive data was last updated September 10, 2016. Abbi Ventura MD LAB MICROBIOLOGY - GENERAL ORDER YFN Final Result Performing Organization Address [facility] Co de Phone Number [facility] [place] [address] documented in this encounter Visit Diagnoses Diagnosis Diarrhea, unspecified type Diarrhea, unspecified type- Primary Dehydration documented in this encounter Care Teams Cigarette Examiner Relationship Specialty Start Date End Date Ravi Smith MD PCP - General 11/04/17 09/27/21 Aft, Kianna Machado MD PhD [address] [place] [address] Surgeon Surgical Oncology 11/22/17 Santiago Gilbert MD [address] [facility] [place] [address] Residential Sales Executive Gastroenterology 11/22/17 documented as of this encounter
--- OUTSIDE RECORDS SUMMARY | 2024-04-24 13:51 | XMS_ITS | Encounter Summary ---
Author Organization [facility] Address [address] [place] [address] Phone Care Team Providers Care Personalized Living Manager Nurse Name Role Phone Ravi Smith MD Primary Care Provider [phone] Aft, Kianna Machado MD PhD Unavailable [phone] Santiago Gilbert MD Unavailable [phone] Encounter Details Date Type Department Care Team (Late st Contact Info) Description 03/21/2018 4:45 PM TEST ENGINEERING MANAGER Lab [facility] Oncology [address] [place] [address] Diarrhea, unspecified type Social History Tobacco Use Types Packs/Day Years Used Date Smoking Tobacco: Former Cigarettes 2015 Smokeless Tobacco: Never Alcohol Use Standard Drinks/Week Comments Yes 0 (1 standard drink = 0.6 oz pur e alcohol) socially Comments No Sex and Gender Information Value Date Recorded Sex Assigned at Not on file Legal Sex Female 1:06 AM TEST ENGINEERING MANAGER Gender Identity Not on file Sexual Orientation Not on file documented as of this encounter Plan of Treatment Not on file documented as of this encounter Procedures Procedure Name Priority Date/Time Associated Diagnosis Comments CLOSTRIDIUM DIFFICILE ASSAY Routine 03/21/2018 11:00 AM TEST ENGINEERING MANAGER Diarrhea, unspecified type STOOL CULTURE Routine 03/21/2018 11:00 AM TEST ENGINEERING MANAGER Diarrhea, unspecified type documented in this encounter Results * Clostridium difficile assay Stool (03/21/2018 11:00 AM TEST ENGINEERING MANAGER) Report Final Report: Negative for: Clostridium difficile toxin. [facility] Stool 03/21/2018 11:0 0 AM TEST ENGINEERING MANAGER 03/21/2018 4:44 PM TEST ENGINEERING MANAGER Narrative [facility] - 03/22/2018 5:27 AM TEST ENGINEERING MANAGER Abbi Ventura MD LAB MICROBIOLOGY - GENERAL ORDER YFN Final Result Performing Organization Address [facility] Co de Phone Number [facility] [place] [address] * Stool culture Stool (03/21/2018 11:00 AM TEST ENGINEERING MANAGER) Direct Specimen Exam Shiga Toxin Testing: Antigen detection assay for Shiga-toxin NEGATIVE for Shiga Toxin 1 and Shiga Toxin 2. [facility] Report Final Report: No growth of enteric bacterial pathogens [facility] Stool 03/21/2018 11:0 0 AM TEST ENGINEERING MANAGER 03/21/2018 4:44 PM TEST ENGINEERING MANAGER Narrative [facility] - 03/24/2018 10:23 AM TEST ENGINEERING MANAGER Specimen was received in a sahara Segun transport tube. Testing performed by [facility] ([phone]). Routine stool cultures include procedures to detect Salmonella, Shigella, Edwardsiella, Aeromonas, Pleisiomonas, Campylobacter, Yersinia, E. coli O157, and Shiga-like toxins. ?? Vibrio is cultured only upon special request. ??If Vibrio is suspected, please call the laboratory at [phone]. Interpretive data was last updated September 10, 2016. Abbi Ventura MD LAB MICROBIOLOGY - GENERAL ORDER YFN Final Result Performing Organization Address [facility] Co de Phone Number [facility] Department [place] [address] documented in this encounter Visit Diagnoses Diagnosis Diarrhea, unspecified type documented in this encounter Care Teams Personalized Living Manager Nurse Relationship Specialty Start Date End Date Ravi Smith MD PCP - General 11/04/17 09/27/21 Aft, Kianna Machado MD PhD [address] [place] [address] Surgeon Surgical Oncology 11/22/17 Santiago Gilbert MD [address] [place] [address] Conditioning Machine Operator Gastroenterology 11/22/17 documented as of this encounter
--- OUTSIDE RECORDS SUMMARY | 2024-04-24 13:51 | XMS_ITS | Encounter Summary ---
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) Procedures mFOLFOX6: (Fluorouracil / Leucovorin / Oxaliplatin) 14 Day Cycles Abbi Ventura MD [address] [facility] [address] [place] [address] Phone: tel: fax: [facility] [address] [place] [phone] Phone: tel: Referral ID Status Reason Start Date Expiration Date Visits Re quested Visits Authorized [id number] Closed 01/31/2018 05/05/2019 1 18 Encounter Details Date Type Department Care Team (Latest Contact Info) Description 03/19/2018 9:15 AM POWER SCREWDRIVER OPERATOR Clinical Support [facility] [address] [place] [address] Malignant neoplasm of descending colon (CMS/HCC) Social History Tobacco Use Types Packs/Day Years Used Date Smoking Tobacco: Former Cigarettes 1 2015 Smokeless Tobacco: Never Alcohol Use Standard Drinks/Week Comments Yes 0 (1 standard drink = 0.6 oz pur e alcohol) socially Comments No Sex and Gender Information Value Date Recorded Sex Assigned at Not on file Legal Sex Female 1:06 AM POWER SCREWDRIVER OPERATOR Gender Identity Not on file Sexual Orientation Not on file documented as of this encounter Miscellaneous Notes * Addendum Note - Tiffany Pina RN - 03/19/2018 9:15 AM CSTAddended by: TIFFANY CURRY on: 03/19/2018 04:30 PM Modules accepted: Orders R SCREWDRIVER OPERATOR documented in this encounter Plan of Treatment Not on file documented as of this encounter Procedures Procedure Name Priority Date/Time Associated Diagnosis Comments DIFFERENTIAL AUTO Routine 03/19/2018 9:2 3 AM POWER SCREWDRIVER OPERATOR Malignant neoplasm of descending colon (CMS/HCC) CBC WITH AUTO DIFFERENTIAL Routine 03/19/2018 9:23 AM POWER SCREWDRIVER OPERATOR Malignant neoplasm of descending colon (CMS/HCC) CEA Routine 03/19/2018 9:23 AM POWER SCREWDRIVER OPERATOR Malignant neoplasm of descending colon (CMS/HCC) COMPREHENSIVE METABOLIC PANEL STAT 03/19/2018 9:23 AM POWER SCREWDRIVER OPERATOR Malignant neoplasm of descending colon (CMS/HCC) documented in this encounter Results * (ABNORMAL) Differential, auto (03/19/2018 9:23 AM POWER SCREWDRIVER OPERATOR) Neutrophil abs 1.1(L) 1.7 - 6.5 K/cumm [facility] Imm gran abs 0.1 0.0 - 0.1 K/cumm [facility] Lymphocyte abs 1.8 0.8 - 3.3 K/cumm [facility] Monocyte abs 0.6 0.2 - 0.8 K/cumm [facility] Eosinophil abs 0.0 0.0 - 0.5 K/cumm [facility] Basophil abs 0.0 0.0 - 0.1 K/cumm [facility] Neutrophil pct 29.7 % [facility] Comment: Interpretive Data Percent cell count reference ranges are not reported, since discordance with absolute values may lead to misinterpretation of CBC data. Current Interpretive Data was last revised on 2017. Imm gran pct 1.6 % [facility] Comment: Interpretive Data Percent cell count reference ranges are not reported, since discordance with absolute values may lead to misinterpretation of CBC data. Current Interpretive Data was last revised on 2017. Lymphocyte pct 48.9 % [facility] Comment: Interpretive Data Percent cell count reference ranges are not reported, since discordance with absolute values may lead to misinterpretation of CBC data. Current Interpretive Data was last revised on 2017. Monocyte pct 17.3 % [facility] Comment: Interpretive Data Percent cell count reference ranges are not reported, since discordance with absolute values may lead to misinterpretation of CBC data. Current Interpretive Data was last revised on 2017. Eosinophil pct 1.4 % [facility] Comment: Interpretive Data Percent cell count reference ranges are not reported, since discordance with absolute values may lead to misinterpretation of CBC data. Current Interpretive Data was last revised on 2017. Basophil pct 1.1 % [facility] Comment: Interpretive Data Percent cell count reference ranges are not reported, since discordance with absolute values may lead to misinterpretation of CBC data. Current Interpretive Data was last revised on 2017. Blood specimen (specimen) 03/19/2018 9:23 AM POWER SCREWDRIVER OPERATOR 03/19/2018 9:24 AM POWER SCREWDRIVER OPERATOR Narrative [facility] - 03/19/2018 9:27 AM POWER SCREWDRIVER OPERATOR us Abbi Ventura MD LAB BLOOD ORDERABLES Final Resul t [facility] Department of Laboratories [place], [place] [id number] * (ABNORMAL) Comprehensive metabolic panel (03/19/2018 9:23 AM POWER SCREWDRIVER OPERATOR) Sodium 139 135 - 145 mmol/L [facility] Potassium, pl 2.8(L) 3.3 - 4.9 mmol/L [facility] Chloride 102 97 - 110 mmol/L [facility] CO2 24 22 - 32 mmol/L [facility] Anion gap 13 2 - 15 mmol/L [facility] BUN 14 8 - 25 mg/dL [facility] Creatinine 1.21(H) 0.60 - 1.10 mg/dL [facility] Glucose 234(H) 70 - 199 mg/dL [facility] [...] 2017. Calcium 9.0 8.5 - 10.3 mg/dL [facility] Bilirubin, total 0.6 0.1 - 1.2 mg/dL [facility] Protein, pl 6.4(L) 6.5 - 8.5 g/dL [facility] Albumin 3.9 3.5 - 5.0 g/dL [facility] Alk phos 88 40 - 130 Units/L [facility] ALT 35 7 - 45 Units/L [facility] AST 39 10 - 45 Units/L [facility] Blood specimen (specimen) 03/19/2018 9:23 AM POWER SCREWDRIVER OPERATOR 03/19/2018 9:24 AM POWER SCREWDRIVER OPERATOR Narrative [facility] - 03/19/2018 9:47 AM POWER SCREWDRIVER OPERATOR us Abbi Ventura MD LAB BLOOD ORDERABLES Final Resul t [facility] Department [place] [address] * CEA (03/19/2018 9:23 AM POWER SCREWDRIVER OPERATOR) CEA 4.8 0.0 - 5.0 ng/mL [facility] Comment: Interpretative Data: Reference Range: Non-Smokers: 0.0 - 5.0 ng/mL Smokers: 0.0 ? 6.5 ng/mL This test was developed and its performance characteristics determined by the [facility] in a manner consistent with CLIA requirements. This test has not been cleared or approved by the U.S. Food and Drug Administration. Current interpretive data was last revised 2018. Blood specimen (specimen) 03/19/2018 9:23 AM POWER SCREWDRIVER OPERATOR 03/19/2018 10:37 AM POWER SCREWDRIVER OPERATOR Narrative [facility] - 03/19/2018 11:25 AM POWER SCREWDRIVER OPERATOR us Abbi Ventura MD LAB BLOOD ORDERABLES Final Resul t [facility] [place] [address] * (ABNORMAL) CBC with auto differential (03/19/2018 9:23 AM POWER SCREWDRIVER OPERATOR) WBC 3.6(L) 3.8 - 9.9 K/cumm [facility] Hgb 12.4 11.9 - 15.5 g/dL [facility] Hct 35.5(L) 35.6 - 45.5 % [facility] Plt 121(L) 150 - 400 K/cumm [facility] MPV 9.0(L) 9.1 - 12.3 fL [facility] RBC 4.02 3.90 - 5.20 M/cumm [facility] MCV 88.3 81.3 - 96.4 fL [facility] MCH 30.8 27.1 - 33.3 pg [facility] MCHC 34.9 32.3 - 35.7 g/dL [facility] RDW CV 14.4 11.1 - 14.9 % [facility] RDW SD 44.1 35.7 - 48.1 fL [facility] NRBC abs 0.05(H) 0.00 - 0.01 K/cumm [facility] Blood specimen (specimen) 03/19/2018 9:23 AM POWER SCREWDRIVER OPERATOR 03/19/2018 9:24 AM POWER SCREWDRIVER OPERATOR Narrative [facility] - 03/19/2018 9:27 AM POWER SCREWDRIVER OPERATOR us Abbi Ventura MD LAB BLOOD ORDERABLES Final Resul t [facility] [place] [address] documented in this encounter Visit Diagnoses Diagnosis Malignant neoplasm of descending colon (CMS/HCC) (HCC) Malignant neoplasm of descending colon documented in this encounter Orders Appointment Requests Count Last Ordered Date Fi rst Ordered Date ONCBCN LAB APPOINTMENT 1 03/19/2018 documented in this encounter Care Teams Auditor Tax Relationship Specialty Start Date End Date Ravi Smith MD PCP - General 11/04/17 09/27/21 Aft, Kianna Machado MD PhD [address] [place] [address] Surgeon Surgical Oncology 11/22/17 Santiago Gilbert MD [address] [place] [address] Cobol Developer Gastroenterology 11/22/17 documented as of this encounter
--- OUTSIDE RECORDS SUMMARY | 2024-04-24 13:51 | XMS_ITS | Encounter Summary ---
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) Procedures mFOLFOX6: (Fluorouracil / Leucovorin / Oxaliplatin) 14 Day Cycles Abbi Ventura MD [address] [place] [address] Phone: tel: fax: [facility] [address] [place] [phone] Phone: tel: Referral ID Status Reason Start Date Expiration Date Visits Re quested Visits Authorized [id number] Closed 01/31/2018 05/05/2019 1 18 Encounter Details Date Type Department Care Team (Late st Contact Info) Description 03/06/2018 11:00 AM CDT Office Visit [facility] [address] [place] [address] Abbi Ventura MD [address] [place] [address] Malignant neoplasm of descending colon (CMS/HCC) (Primary [...] on file Legal Sex Female 1:06 AM CENTER MANAGER Gender Identity Not on file Sexual Orientation Not on file documented as of this encounter Last Filed Vital Signs Vital Sign Reading Time Taken Comments Blood Pressure 152/81 03/06/2018 12:14 PM CDT Pulse 106 03/06/2018 12:14 PM CDT Temperature 36.7 ??C (98.1 ??F) 03/06/2018 1 2:14 PM CDT Respiratory Rate 18 03/06/2018 12:1 4 PM CDT Oxygen Saturation 95% 03/06/2018 12: 14 PM CDT Inhaled Oxygen Concentration - - Weight 108.1 kg (238 lb 4.8 oz) 018 12:14 PM CDT Height 172.7 cm (5' 8 ) 03/06/2018 12:1 4 PM CDT Body Mass Index 36.23 03/06/2018 12:14 PM CDT documented in this encounter Progress Notes * Abbi Ventura MD - 03/06/2018 11:00 AM CDT Patient Identifying Data: Aleah Gerber is a 62 y.o. female seen in followup today DIAGNOSIS: 1. 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 [employer] My risk showed no mutation in [facility] [...] 7. Adjuvant FOLFOX chemotherapy started on 02/06/18 Interval History Patient went to ER after cycle 2 of FOLFOX with slurred speech and weakness in right side of her body. Evaluation showed no evidence of stroke. She was seen by Allergy Immunology and there is no evidence of type I allergic reaction on skin testing. 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 She had mild fatigue, cold sensitivity and one episode of diarrhea due to chemotherapy. No other complaints. Review of Systems Review of systems positive for symptoms as per interval history. All other review of systems negative. Objective Vitals: Vitals BP 152/81 (BP Location: Right arm) Pulse 106 Temp 36.7 ??C (98.1 ??F) (Oral) Resp 18 Ht 172.7 cm (5' 8 ) Wt 108.1 kg (238 lb 4.8 oz) SpO2 95% BMI 36.23 kg/m?? PERFORMANCE STATUS: ECOG 1 SKIN: Normal [...] aredisplayed. Labs - Hematology Latest Ref Range 01/28/18 02/06/18 02/20/18 03/06/18 WBC 3.8 - 9.9 K/cumm 7.8 7.0 4.3 7.6 Total Hb, POC 11.9 - 15.5 g/dL 11.0 (A) 10.9 (A) 10.5 (A) 11.3 (A) Hct 35.6 - 45.5 % 34.0 (A) 33.1 (A) 31.8 (A) 33.4 (A) Plt 150 - 400 K/cumm 161 153 114 (A) 107 (A) Neutrophil abs 1.7 - 6.5 K/cumm 5.1 4.6 2.4 5.1 (A) Abnormal value Comments are available for some flowsheets but are not being displayed. Chemistry Component Value Date/Time SODIUM 138 03/06/2018 1038 POTASSIUM 3.5 03/06/2018 1038 CHLORIDE 104 03/06/2018 1038 CO2 25 03/06/2018 1038 BUNSER 22 03/06/2018 1038 CREATININE 0.89 03/06/2018 1038 GLUCOSE 176 03/06/2018 1038 Component Value Date/Time CALCIUM 9.2 03/06/2018 1038 ALKPHOS 84 03/06/2018 1038 AST 21 03/06/2018 1038 ALT 20 03/06/2018 1038 BILITOT 0.4 03/06/2018 1038 Tumor Marker History Some values may be hidden. Unless noted otherwise, only the newest values recorded on each date aredisplayed. Tumor Markers Latest Ref Range 01/28/18 02/06/18 CEA 0.1 - 5.0 ng/mL 1.59 1.4 Comments are available for some flowsheets but are not being displayed. Recent labs, radiology and pathology reviewed in EPIC ASSESSMENT: T4bN0 disease, Stage IIC colon adenocarcinoma: tolerated cycle 2 of FOLFOX well except for grade 1 fatigue, diarrhea, cold sensitivity and grade 3 motor neuropathy. 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 [facility] panel is positive for BRCA2 mutation, and VUS in BRIP1 and NBN Depression/anxiety: follow up with Dr. Simms PLAN: Cycle 3 FOLFOX today with oxaliplatin at 25% reduced dose given severity of motor neuropathy RTC in 2 weeks to see me before cycle 4 of FOLFOX If she again has severe motor neuropathy we will discontinue oxaliplatin Abbi Ventura MD Service Developerreel system operator Division of Oncology Section of Medical Oncology [facility] completed by using M*Modal Fluency Direct speaking software, therefore, transcriptionvariances may occur. ER MANAGER ER MANAGER documented in this encounter Plan of Treatment Not on file documented as of this encounter Results * (ABNORMAL) Comprehensive metabolic panel (03/19/2018 9:23 AM CENTER MANAGER) Sodium 139 135 - 145 mmol/L [facility] Potassium, pl 2.8(L) 3.3 - 4.9 mmol/L [facility] Chloride 102 97 - 110 mmol/L [facility] CO2 24 22 - 32 mmol/L [facility] Anion gap 13 2 - 15 mmol/L [facility] BUN 14 8 - 25 mg/dL [facility] Creatinine 1.21(H) 0.60 - 1.10 mg/dL [facility] Glucose 234(H) 70 - 199 mg/dL [facility] Comment: Interpretive Data Fasting glucose >/= [...] 2017. Calcium 9.0 8.5 - 10.3 mg/dL [facility] Bilirubin, total 0.6 0.1 - 1.2 mg/dL [facility] Protein, pl 6.4(L) 6.5 - 8.5 g/dL [facility] Albumin 3.9 3.5 - 5.0 g/dL [facility] Alk phos 88 40 - 130 Units/L [facility] ALT 35 7 - 45 Units/L [facility] AST 39 10 - 45 Units/L [facility] Blood specimen (specimen) 03/19/2018 9:23 AM CENTER MANAGER 03/19/2018 9:24 AM CENTER MANAGER [facility]ative [facility] - 03/19/2018 9:47 AM CENTER MANAGER Abbi Ventura MD LAB BLOOD ORDERABLES Final Resul t Performing Organization Address [facility] de Phone Number [facility] [place] [address] * CEA (03/19/2018 9:23 AM CENTER MANAGER) Pathologist [facility] CEA 4.8 0.0 - 5.0 ng/mL [facility] Comment: Interpretative Data: Reference Range: Non-Smokers: 0.0 - 5.0 ng/mL Smokers: 0.0 ? 6.5 ng/mL This test was developed and its performance characteristics determined by the [facility] in a manner consistent with CLIA requirements. This test has not been cleared or approved by the U.S. Food and Drug Administration. Current interpretive data was last revised 2018. Blood specimen (specimen) 03/19/2018 9:23 AM CENTER MANAGER 03/19/2018 10:37 AM CENTER MANAGER Narrative [facility] - 03/19/2018 11:25 AM CENTER MANAGER Abbi Ventura MD LAB BLOOD ORDERABLES Final Resul t Performing Organization Address [facility] de Phone Number [facility] [place] [address] * (ABNORMAL) CBC with auto differential (03/19/2018 9:23 AM CENTER MANAGER) WBC 3.6(L) 3.8 - 9.9 K/cumm [facility] Hgb 12.4 11.9 - 15.5 g/dL [facility] Hct 35.5(L) 35.6 - 45.5 % [facility] Plt 121(L) 150 - 400 K/cumm [facility] MPV 9.0(L) 9.1 - 12.3 fL [facility] RBC 4.02 3.90 - 5.20 M/cumm [facility] MCV 88.3 81.3 - 96.4 fL [facility] MCH 30.8 27.1 - 33.3 pg [facility] MCHC 34.9 32.3 - 35.7 g/dL [facility] RDW CV 14.4 11.1 - 14.9 % [facility] RDW SD 44.1 35.7 - 48.1 fL [facility] NRBC abs 0.05(H) 0.00 - 0.01 K/cumm [facility] Blood specimen (specimen) 03/19/2018 9:23 AM CENTER MANAGER 03/19/2018 9:24 AM CENTER MANAGER Narrative [facility] - 03/19/2018 9:27 AM CENTER MANAGER us Abbi Ventura MD LAB BLOOD ORDERABLES Final Resul t [facility] Department [place] [address] documented in this encounter Visit Diagnoses Diagnosis [...] Date ONCBCN CLINIC APPOINTMENT REQUEST 2 018 03/06/2018 ONCBCN LAB APPOINTMENT 1 03/19/2018 ONCBCN RETURN CHEMO 4HRS 1 03/19/2018 documented in this encounter Care Teams [place] Auditor Relationship Specialty Start Date End Date Ravi Smith MD PCP - General 11/04/17 09/27/21 Aft, Kianna Machado MD PhD [address] [place] [address] Surgeon Surgical Oncology 11/22/17 Santiago Gilbert MD [address] [place] [address] Qa Intern Gastroenterology 11/22/17 documented as of this encounter
--- OUTSIDE RECORDS SUMMARY | 2024-04-24 13:51 | XMS_ITS | Encounter Summary ---
Author Organization [facility] Address [address] [place] [address] Phone Care Team Providers Care Technical Training Specialist Name Role Phone Ravi Smith MD Primary Care Provider [phone] Aft, Kianna Machado MD PhD Unavailable [phone] Santiago Gilbert MD Unavailable [phone] Encounter Details Date Type Department Care Team (Late st Contact Info) Description 03/07/2018 Telephone [facility] [address] [place] [phone] Fatemeh Zarate, RN Social History Tobacco Use Types Packs/Day Years Used Date Smoking Tobacco: Former Cigarettes 2015 Smokeless Tobacco: Never Alcohol Use Standard Drinks/Week Comments Yes 0 (1 standard drink = 0.6 oz pur e alcohol) socially Comments No Sex and Gender Information Value Date Recorded Sex Assigned at Not on file Legal Sex Female 1:06 AM PROFESSOR OF ENGLISH Gender Identity Not on file Sexual Orientation Not on file documented as of this encounter Miscellaneous Notes * Telephone Encounter - Fatemeh Zarate RN - 03/07/2018 11:04 AM CDT ----- Message from Jade May sent at 02/20/2018 3:34 PM CDT ----- Regarding: ED Pt sent to ED on 02/20 after receiving Oxaliplatin infusion. Slurred speech and right sided weakness. Dr. Ventura said that if she does not get admitted she can come back on 02/21 to get 5FU pump hooked up. But she will need to see neurology and allergy/immunology to make sure this is not an allergyto oxaliplatin. Needs Brain MRI if do not due as an inpatient. 02/24/18 referral to immunology needed [facility]. Referral placed. Mag to call. CL 02/24/18 Spoke to Esme FREEMAN in imm/allergy. She will work on getting pt scheduled [facility] and call withany questions. PS [phone] Simms as well. PS 02/25/18 Demi apt 03/06/18 with ROV. Victoria in IMM talking to Dr. Ventura today at [facility] about skin test vs desensitizing. PS 02/26/18 - email from immunology: Per Dr. Francisco, please add new patient, Aleah Gerber - 59 at [facility] for March 03at 1:00. In the appointment comments - Drug Testing - Oxaliplatin - I am approving this drug testing and have ordered the medication. The patient is aware of the appointment time and location. I told her that someone from the hub would contact her tomorrow regarding the new patient paperwork. Let me know if you have any questions. Thanks, Esme Metcalf LPN 03/03/18 Immunology/ Allergy apt today. F/up note. PS Immunology Plan: Symptoms were not consistent with type I hypersensitivity and skin testing was negative to oxaliplatin, which together make an IgE-mediated reaction highly unlikely. From an allergy perspective, there is no need for any additional treatments, such as desensitization, prior to subsequent doses. If any further concerns arise, she will call. Follow up as needed. . 03/04/18 MRI Brain report in with Discharge records. Pt scheduled to see Dr. Ventura on 03/06/18. Request for disc faxed to [facility] ([facility]). PS 03/04/18 Follow up to see if CD has been received. DB 03/07/18 CD received and downloaded to [facility]. DB documented in this encounter Plan of Treatment Not on file documented as of this encounter Visit Diagnoses Not on filedocumented in this encounter Care Teams Technical Training Specialist Relationship Specialty Start Date End Date Ravi Smith MD PCP - General 11/04/17 09/27/21 Aft, Kianna Machado MD PhD [address] [place], [place] [id number] Surgeon Surgical Oncology 11/22/17 Santiago Gilbert MD [address] [place] [address] Electrotherapist Gastroenterology 11/22/17 documented as of this encounter
--- OUTSIDE RECORDS SUMMARY | 2024-04-24 13:51 | XMS_ITS | Encounter Summary ---
Author Organization [facility] Address [address] [place] [address] Phone Care Team Providers Care Brake Holder Name Role Phone Ravi Smith MD Primary Care Provider [phone] Aft, Kianna Machado MD PhD Unavailable [phone] Santiago Gilbert MD Unavailable [phone] Reason for Visit * Episode Based Medications (Routine) - Closed Specialty Diagnoses / Procedures Referred By Contac t Referred To Contact Diagnoses Malignant neoplasm of descending colon (CMS/HCC) (HCC) Procedures mFOLFOX6: (Fluorouracil / Leucovorin / Oxaliplatin) 14 Day Cycles Abbi Ventura MD [address] [facility] [address] [place] [address] Phone: tel: fax: [facility] [address] [place] [address] Phone: tel: Referral ID Status Reason Start Date Expiration Date Visits Re quested Visits Authorized [id number] Closed 01/31/2018 05/05/2019 1 18 Encounter Details Date Type Department Care Team (Latest Contact Info) Description 03/25/2018 10:00 AM PSYCHOLOGY LECTURER Clinical Support [facility] [address] [place] [address] 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) Social History Tobacco Use Types Packs/Day Years Used Date Smoking Tobacco: Former Cigarettes 1 2015 Smokeless Tobacco: Never Alcohol Use Standard Drinks/Week Comments Yes 0 (1 standard drink = 0.6 oz pur e alcohol) socially Comments No Sex and Gender Information Value Date Recorded Sex Assigned at Not on file Legal Sex Female 1:06 AM PSYCHOLOGY LECTURER Gender Identity Not on file Sexual Orientation Not on file documented as of this encounter Plan of Treatment Not on file documented as of this encounter Procedures Procedure Name Priority Date/Time Associated Diagnosis Comments DIFFERENTIAL AUTO Routine 03/25/2018 10: 25 AM PSYCHOLOGY LECTURER Malignant neoplasm of descending colon (CMS/HCC) CBC WITH AUTO DIFFERENTIAL Routine 03/25/2018 10:25 AM PSYCHOLOGY LECTURER Malignant neoplasm of descending colon (CMS/HCC) COMPREHENSIVE METABOLIC PANEL Routine 03/25/2018 10:25 AM PSYCHOLOGY LECTURER Malignant neoplasm of descending colon (CMS/HCC) documented in this encounter Results * (ABNORMAL) Differential, auto (03/25/2018 10:25 AM PSYCHOLOGY LECTURER) Neutrophil abs 4.3 1.7 - 6.5 K/cumm [facility] Imm gran abs 0.3(H) 0.0 - 0.1 K/cumm [facility] Lymphocyte abs 1.7 0.8 - 3.3 K/cumm [facility] Monocyte abs 0.5 0.2 - 0.8 K/cumm [facility] Eosinophil abs 0.2 0.0 - 0.5 K/cumm [facility] Basophil abs 0.1 0.0 - 0.1 K/cumm [facility] Neutrophil pct 60.8 % [facility] Comment: Interpretive Data Percent cell count reference ranges are not reported, since discordance with absolute values may lead to misinterpretation of CBC data. Current Interpretive Data was last revised on 2017. Imm gran pct 4.5 % [facility] Comment: Interpretive Data Percent cell count reference ranges are not reported, since discordance with absolute values may lead to misinterpretation of CBC data. Current Interpretive Data was last revised on 2017. Lymphocyte pct 24.4 % [facility] Comment: Interpretive Data Percent cell count reference ranges are not reported, since discordance with absolute values may lead to misinterpretation of CBC data. Current Interpretive Data was last revised on 2017. Monocyte pct 7.2 % [facility] Comment: Interpretive Data Percent cell count reference ranges are not reported, since discordance with absolute values may lead to misinterpretation of CBC data. Current Interpretive Data was last revised on 2017. Eosinophil pct 2.1 % [facility] Comment: Interpretive Data Percent cell count reference ranges are not reported, since discordance with absolute values may lead to misinterpretation of CBC data. Current Interpretive Data was last revised on 2017. Basophil pct 1.0 % [facility] Comment: Interpretive Data Percent cell count reference ranges are not reported, since discordance with absolute values may lead to misinterpretation of CBC data. Current Interpretive Data was last revised on 2017. Blood specimen (specimen) 03/25/2018 10:25 AM PSYCHOLOGY LECTURER 03/25/2018 10:28 AM PSYCHOLOGY LECTURER Narrative [facility] - 03/25/2018 10:31 AM PSYCHOLOGY LECTURER us Abbi Ventura MD LAB BLOOD ORDERABLES Final Resul t [facility] Department [place] [address] * (ABNORMAL) Comprehensive metabolic panel (03/25/2018 10:25 AM PSYCHOLOGY LECTURER) Sodium 142 135 - 145 mmol/L [facility] Potassium, pl 2.9(L) 3.3 - 4.9 mmol/L [facility] Chloride 104 97 - 110 mmol/L [facility] CO2 27 22 - 32 mmol/L [facility] Anion gap 11 2 - 15 mmol/L [facility] BUN 23 8 - 25 mg/dL [facility] Creatinine 0.95 0.60 - 1.10 mg/dL [facility] Glucose 249(H) 70 - 199 mg/dL [facility] interpretive data was last revised 2017. Calcium 8.9 8.5 - 10.3 mg/dL [facility] Bilirubin, total 0.3 0.1 - 1.2 mg/dL [facility] Protein, pl 6.0(L) 6.5 - 8.5 g/dL [facility] Albumin 3.7 3.5 - 5.0 g/dL [facility] Alk phos 83 40 - 130 Units/L [facility] ALT 24 7 - 45 Units/L [facility] AST 35 10 - 45 Units/L [facility] Blood specimen (specimen) 03/25/2018 10:25 AM PSYCHOLOGY LECTURER 03/25/2018 10:28 AM PSYCHOLOGY LECTURER Narrative [facility] - 03/25/2018 11:19 AM PSYCHOLOGY LECTURER us Abbi Ventura MD LAB BLOOD ORDERABLES Final Resul t [facility] [place] [address] * (ABNORMAL) CBC with auto differential (03/25/2018 10:25 AM PSYCHOLOGY LECTURER) [facility] WBC 7.1 3.8 - 9.9 K/cumm [facility] Hgb 10.1(L) 11.9 - 15.5 g/dL [facility] Hct 29.4(L) 35.6 - 45.5 % [facility] Plt 89(L) 150 - 400 K/cumm [facility] MPV 8.9(L) 9.1 - 12.3 fL [facility] RBC 3.23(L) 3.90 - 5.20 M/cumm [facility] MCV 91.0 81.3 - 96.4 fL [facility] MCH 31.3 27.1 - 33.3 pg [facility] MCHC 34.4 32.3 - 35.7 g/dL [facility] RDW CV 15.3(H) 11.1 - 14.9 % [facility] RDW SD 49.5(H) 35.7 - 48.1 fL [facility] NRBC abs 0.03(H) 0.00 - 0.01 K/cumm [facility] Blood specimen (specimen) 03/25/2018 10:25 AM PSYCHOLOGY LECTURER 03/25/2018 10:28 AM PSYCHOLOGY LECTURER Narrative [facility] - 03/25/2018 10:31 AM PSYCHOLOGY LECTURER us Abbi Ventura MD LAB BLOOD ORDERABLES Final Resul t [facility] [place] [address] documented in this encounter Visit Diagnoses Diagnosis Malignant neoplasm of descending colon (CMS/HCC) (HCC)- Primary Malignant neoplasm of descending colon documented in this encounter Orders Appointment Requests Count Last Ordered Date Fi rst Ordered Date ONCBCN LAB APPOINTMENT 1 03/25/2018 documented in this encounter Care Teams Brake Holder Relationship Specialty Start Date End Date Ravi Smith MD PCP - General 11/04/17 09/27/21 Aft, Kianna Machado MD PhD [address] [place] [address] Surgeon Surgical Oncology 11/22/17 Santiaog Gilbert MD [address] [place] [address] Fitness Consultant Gastroenterology 11/22/17 documented as of this encounter
--- OUTSIDE RECORDS SUMMARY | 2024-04-24 13:51 | XMS_ITS | Encounter Summary ---
Author Organization 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) Procedures mFOLFOX6: (Fluorouracil / Leucovorin / Oxaliplatin) 14 Day Cycles Abbi Ventura MD [address] [place] [address] [address] [place] [address] Phone: tel: fax: [facility] [address] [place] [phone] Phone: tel: Referral ID Status Reason Start Date Expiration Date Visits Re quested Visits Authorized [id number] Closed 01/31/2018 05/05/2019 1 18 Encounter Details Date Type Department Care Team (Late st Contact Info) Description 04/09/2018 10:15 AM CROSSING SUPERVISOR Office Visit [facility] [address] [place] [address] Abbi Ventura MD [address] [facility] [address] [place] [address] Malignant neoplasm of descending colon [...] on file Legal Sex Female 1:06 AM CROSSING SUPERVISOR Gender Identity Not on file Sexual Orientation Not on file documented as of this encounter Last Filed Vital Signs Vital Sign Reading Time Taken Comments Blood Pressure 138/79 04/09/2018 10:27 AM CROSSING SUPERVISOR Pulse 110 04/09/2018 10:27 AM CROSSING SUPERVISOR Temperature 37 ??C (98.6 ??F) 04/09/2018 10: 27 AM CROSSING SUPERVISOR Respiratory Rate 16 04/09/2018 10:2 7 AM CROSSING SUPERVISOR Oxygen Saturation 97% 04/09/2018 10: 27 AM CROSSING SUPERVISOR Inhaled Oxygen Concentration - - Weight 107.1 kg (236 lb 3.2 oz) 018 10:27 AM CROSSING SUPERVISOR Height 172.7 cm (5' 8 ) 04/09/2018 10:2 7 AM CROSSING SUPERVISOR Body Mass Index 35.91 04/09/2018 10:27 AM CROSSING SUPERVISOR documented in this encounter Progress Notes * Abbi Ventura MD - 04/09/2018 10:15 AM CST Patient Identifying Data: Aleah Gerber [...] reduced dose to see how it goes. Interval History Reports no side effects after cycle 4 of chemotherapy with 5FU/LV. She feels depressed and overwhelmed due to her own illness as well as family members being sick. Her has been diagnosed withCAD, PVD and osteomyelitis. Her father in law is in the hospital with acute renal failure. Her mother has dementia and needs help with ADLs and close supervision. No other complaints. Review of Systems Review of systems positive for symptoms as per interval history. All other review of systems negative. Objective Vitals: Vitals BP 138/79 (BP Location: Right arm) Pulse 110 Temp 37 ??C (98.6 ??F) (Oral) Resp 16 Ht 172.7 cm (5' 8 ) Wt 107.1 kg (236 lb 3.2 oz) SpO2 97% BMI 35.91 kg/m?? PERFORMANCE STATUS: ECOG 1 SKIN: Normal [...] aredisplayed. Labs - Hematology Latest Ref Range 03/06/18 03/19/18 03/25/18 04/09/18 WBC 3.8 - 9.9 K/cumm 7.6 3.6 (A) 7.1 3.6 (A) Total Hb, POC 11.9 - 15.5 g/dL 11.3 (A) 12.4 10.1 (A) 10.8 (A) Hct 35.6 - 45.5 % 33.4 (A) 35.5 (A) 29.4 (A) 32.2 (A) Plt 150 - 400 K/cumm 107 (A) 121 (A) 89 (A) 131 (A) Neutrophil abs 1.7 - 6.5 K/cumm 5.1 1.1 (A) 4.3 1.6 (A) (A) Abnormal value Chemistry Component Value Date/Time SODIUM 138 04/09/2018 1012 POTASSIUM 4.0 04/09/2018 1012 CHLORIDE 104 04/09/2018 1012 CO2 23 04/09/2018 1012 BUNSER 23 04/09/2018 1012 CREATININE 1.16 (H) 04/09/2018 1012 GLUCOSE 201 (H) 04/09/2018 1012 Component Value Date/Time CALCIUM 9.4 04/09/2018 1012 ALKPHOS 94 04/09/2018 1012 AST 30 04/09/2018 1012 ALT 30 04/09/2018 1012 BILITOT 0.6 04/09/2018 1012 Tumor Marker History Some values may be [...] disease, Stage IIC colon adenocarcinoma: tolerated cycle 4 of chemotherapy with 5FU/LV well with no side effects except for grade 1 cytopenia T2N0, 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 MyRisk panel is positive for BRCA2 mutation, and VUS in BRIP1 and NBN Depression/anxiety: follow up with Dr. Simms Slightly high creatinine: we have asked patient to drink more fluids PLAN: I d/w patient about continuing 5FU/LV at full dose versus FOLFOX with Oxaliplatin at 50% reduced dose. At end of discussion, patient wants to proceed with cycle 5 of chemotherapy with FOLFOX with Oxaliplatin at 50% reduced dose today RTC in 2 weeks to see me at which point based on side effects we will decide if we are going to continue Oxaliplatin at 50% reduced dose. Depression: Being followed by Dr. Demi Ventura MD Chicken And Fish Butchermedical research scientist Division of Oncology Section of Medical Oncology [facility] [employer] Director Web completed by using [employer] Fluency Direct speaking software, therefore, transcriptionvariances may occur. SING SUPERVISOR SING SUPERVISOR documented in this encounter Plan of Treatment Not on file documented as of this encounter Results * (ABNORMAL) Comprehensive metabolic panel (04/23/2018 8:10 AM CROSSING SUPERVISOR) Sodium 142 135 - 145 mmol/L [facility] Potassium, pl 4.0 3.3 - 4.9 mmol/L [facility] Chloride 107 97 - 110 mmol/L [facility] CO2 25 22 - 32 mmol/L [facility] Anion gap 10 2 - 15 mmol/L [facility] BUN 19 8 - 25 mg/dL [facility] Creatinine 1.15(H) 0.60 - 1.10 mg/dL [facility] Glucose 276(H) 70 - 199 mg/dL [facility] Calcium 8.8 8.5 - 10.3 mg/dL [facility] Bilirubin, total 0.4 0.1 - 1.2 mg/dL [facility] Protein, pl 6.2(L) 6.5 - 8.5 g/dL [facility] Albumin 3.8 3.5 - 5.0 g/dL [facility] Alk phos 90 40 - 130 Units/L [facility] ALT 25 7 - 45 Units/L [facility] AST 28 10 - 45 Units/L [facility] Blood specimen (specimen) 04/23/2018 8:10 AM CROSSING SUPERVISOR 04/23/2018 8:16 AM CROSSING SUPERVISOR Narrative [facility] - 04/23/2018 9:34 AM CROSSING SUPERVISOR us Abbi Ventura MD LAB BLOOD ORDERABLES Final Resul t [facility] Department [place] [address] * (ABNORMAL) CBC with auto differential (04/23/2018 8:10 AM CROSSING SUPERVISOR) WBC 3.6(L) 3.8 - 9.9 K/cumm [facility] Hgb 9.8(L) 11.9 - 15.5 g/dL [facility] Hct 29.3(L) 35.6 - 45.5 % [facility] Plt 80(L) 150 - 400 K/cumm [facility] MPV 9.0(L) 9.1 - 12.3 fL [facility] RBC 3.08(L) 3.90 - 5.20 M/cumm [facility] MCV 95.1 81.3 - 96.4 fL [facility] MCH 31.8 27.1 - 33.3 pg [facility] MCHC 33.4 32.3 - 35.7 g/dL [facility] RDW CV 17.2(H) 11.1 - 14.9 % [facility] RDW SD 58.0(H) 35.7 - 48.1 fL [facility] NRBC abs 0.02(H) 0.00 - 0.01 K/cumm [facility] Blood specimen (specimen) 04/23/2018 8:10 AM CROSSING SUPERVISOR 04/23/2018 8:16 AM CROSSING SUPERVISOR Narrative [facility] - 04/23/2018 8:25 AM CROSSING SUPERVISOR us Abbi Ventura MD LAB BLOOD ORDERABLES Final Resul t [facility] Department [place] [address] documented in this encounter Visit Diagnoses Diagnosis 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 sertraline (ZOLOFT) 50 mg tablet Take 50 mg by mouth. 05/21/2018 added in this encounter Orders Appointment Requests Count Last Ordered Date Fi rst Ordered Date ONCBCN CLINIC APPOINTMENT REQUEST 2 018 04/09/2018 ONCBCN LAB APPOINTMENT 1 04/23/2018 ONCBCN RETURN CHEMO 4HRS 1 04/23/2018 documented in this encounter Care Teams Crack Off Person Relationship Specialty Start Date End Date Ravi Smith MD PCP - General 11/04/17 09/27/21 Aft, Kianna Machado MD PhD [address] [place] [address] Surgeon Surgical Oncology 11/22/17 Santiago Gilbert MD [address] [facility] [address] [place] [address] Clinical Product Specialist Gastroenterology 11/22/17 documented as of this encounter
--- OUTSIDE RECORDS SUMMARY | 2024-04-24 13:51 | XMS_ITS | Encounter Summary ---
Author Organization [facility] Address [address] [place] [address] Phone Care Team Providers Care Food Chemist Name Role Phone Ravi Smith MD Primary Care Provider [phone] Aft, Kianna Machado MD PhD Unavailable [phone] Santiago Gilbert MD Unavailable [phone] Reason for Visit * Reason Onset Date Comments Diarrhea 03/14/2018 Fatigue 03/14/2018 Encounter Details Date Type Department Care Team (Late st Contact Info) Description 03/14/2018 Telephone [facility] [address] [place] [phone] Fatemeh Zarate RN Diarrhea; Fatigue Social History Tobacco Use Types Packs/Day Years Used Date Smoking Tobacco: Former Cigarettes 2015 Smokeless Tobacco: Never Alcohol Use Standard Drinks/Week Comments Yes 0 (1 standard drink = 0.6 oz pur e alcohol) socially Comments No Sex and Gender Information Value Date Recorded Sex Assigned at Not on file Legal Sex Female 1:06 AM DIRECTOR UTILIZATION MANAGEMENT Gender Identity Not on file Sexual Orientation Not on file documented as of this encounter Miscellaneous Notes * Telephone Encounter - Fatemeh Zarate RN - 03/14/2018 9:11 AM CST Aleah called stating that she has had 6-8 diarrhea stools a day for the last 5 days. She said she has been taking 4 immodium a day which only makes her stomach girgle. She said she feels like she hasthe flu but no fevers. She said she feels weak and her whole body aches. She is denies weakness on one side of the body. She said she just feels weak and it is hard for her to even dip stand loader the shower without having to sit down. She knows she is not eating and drinking enough. She denies cough, runny nose, sore throat. Script for lomotil sent to pt pharmacy. Advised her to take lomotil 4 times daily and that she can take immodium in between lomotil doses if needed up to 8 tablets in a 24 hour period. Scheduled pt to come to [facility] to check BMP, orthostatic b/p, and IVF. DB CTOR UTILIZATION MANAGEMENT documented in this encounter Plan of Treatment Not on file documented as of this encounter Visit Diagnoses Not on filedocumented in this encounter Care Teams Food Chemist Relationship Specialty Start Date End Date Ravi Smith MD PCP - General 11/04/17 09/27/21 Aft, Kianna Machado MD PhD [address] [place] [address] Surgeon Surgical Oncology 11/22/17 Santiago Gilbert MD [address] [place] [address] Finished Hardware Erector Gastroenterology 11/22/17 documented as of this encounter
--- OUTSIDE RECORDS SUMMARY | 2024-04-24 13:51 | XMS_ITS | Encounter Summary ---
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) Procedures [id number]: (Fluorouracil / Leucovorin / Oxaliplatin) 14 Day Cycles Abbi Ventura MD [address] [place] [address] [address] [place] [address] Phone: tel: fax: [facility] Oncology [address] [place] [address] Phone: tel: Referral ID Status Reason Start Date Expiration Date Visits Re quested Visits Authorized [id number] Closed 01/31/2018 05/05/2019 1 18 Encounter Details Date Type Department Care Team (Late st Contact Info) Description 03/06/2018 12:00 PM CDT Infusion [facility] Oncology [address] [place] [address] Malignant neoplasm of descending colon (CMS/HCC) (Primary [...] file Legal Sex Female 1:06 AM SUPERVISOR OPEN HEARTH STOCKYARD Gender Identity Not on file Sexual Orientation Not on file documented as of this encounter Last Filed Vital Signs Vital Sign Reading Time Taken Comments Blood Pressure 130/76 03/06/2018 3:27 PM CDT Pulse 79 03/06/2018 3:27 PM CDT Temperature - - Respiratory Rate - - Oxygen Saturation - - Inhaled Oxygen Concentration - - Weight - - Height - - Body Mass Index - - documented in this encounter Nursing Notes * Yari Welch - 03/06/2018 12:00 PM CDT Pt reports previous issues with last 2 cycles of chemo and being sent to ER with stroke/TIA symptoms. Pts BP monitored closely during infusion and then monitored 30 minutes after chemo completed. Pt tolerated chemo well with no complaints. Disconnect kit provided to patient. Pt aware to call with any concerns. 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 2.32 m2 Treatment Plan BSA from Recorded weight), intravenous, at 2.4 mL/hr, Administer over 46 Hours, over 46 hours, First dose on Bonnie 03/06/18 at 1615, FOR PUMP PROBLEMS CALL [phone] IrritantIndications:Malig nant neoplasm of descending colon (CMS/HCC) (HCC) Given 03/06/2018 3:37 PM CDT 5,550 mg 2.4 mL/hr fluorouracil (ADRUCIL) IV syringe 925 mg 18.5 mL 925 mg (rounded from 928 mg = 400 mg/m2 ? 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 2.32 m2 Treatment Plan BSA from Recorded weight), intravenous, at 134.3 mL/hr, Administer over 2 Hours, Once, On Bonnie 03/06/18 at 1345, For 1 dose, Run concurrently with oxaliplatin. Do not exceed rate of 160 mg/min. 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 2.32 m2 Treatment Plan BSA from Recorded weight), intravenous, at 139.8 mL/hr, Administer over 2 Hours, Once, On Bonnie 03/06/18 at 1345, For 1 dose, Run concurrently with leucovorin. Use D5W as back up fluid during oxaliplatin, and flush line with D5W before and after oxaliplatin infusion Irritant wih vesicant potential. 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) Given 03/06/2018 12:49 PM CDT 250 mcg documented in this encounter Orders Nursing Count Last Ordered Date First Orde red Date ONC NURSING COMMUNICATION NEUROPATHY 05/2017 ONCBCN TREATMENT PARAMETERS 2 1 03/06/2018 Appointment Requests Count Last Ordered Date Fi rst Ordered Date ONCBCN RETURN CHEMO 4HRS 1 03/06/2018 documented in this encounter Care Teams Flour Inspector Relationship Specialty Start Date End Date Ravi Smith MD PCP - General 11/04/17 09/27/21 Aft, Kianna Machado MD PhD [address] [place] [address] Surgeon Surgical Oncology 11/22/17 Santiago Gilbert MD [address] [place] [address] Cable Installation Technician Gastroenterology 11/22/17 documented as of this encounter
--- OUTSIDE RECORDS SUMMARY | 2024-04-24 13:51 | XMS_ITS | Encounter Summary ---
Author Organization [facility] Address [address] [place] [address] Phone Care Team Providers Care Asbestos Removal Worker Name Role Phone Ravi Smith MD Primary Care Provider [phone] Aft, Kianna Machado MD PhD Unavailable [phone] Santiago Gilbert MD Unavailable [phone] Encounter Details Date Type Department Care Team (Late st Contact Info) Description 03/25/2018 Orders Only [facility] Oncology [address] [place] [address] Abbi Ventura MD [address] [facility] [address] [place] [address] Hypokalemia (Primary Dx) Social History Tobacco Use Types Packs/Day Years Used Date Smoking Tobacco: Former Cigarettes 2015 Smokeless Tobacco: Never Alcohol Use Standard Drinks/Week Comments Yes 0 (1 standard drink = 0.6 oz pur e alcohol) socially Comments No Sex and Gender Information Value Date Recorded Sex Assigned at Not on file Legal Sex Female 1:06 AM SENIOR RESERVATIONS AGENT Gender Identity Not on file Sexual Orientation Not on file documented as of this encounter Ordered Prescriptions Prescription Sig Dispense Quantity Refills Last Filled Start Date End Date potassium chloride ER (KLOR-CON,K-DUR) 20 mEq CR tablet Take 1 tablet (20 mEq total) by mouth daily. 30 tablet 3 03/25/2018 07/09/2018 documented in this encounter Plan of Treatment Not on file documented as of this encounter Visit Diagnoses Diagnosis Hypokalemia- Primary Hypopotassemia documented in this encounter Care Teams Asbestos Removal Worker Relationship Specialty Start Date End Date Ravi Smith MD PCP - General 11/04/17 09/27/21 Aft, Kianna Machado MD PhD [address] [place] [address] Surgeon Surgical Oncology 11/22/17 Santiago Gilbert MD [address] [place] [address] Ladies' Locker Room Attendant Gastroenterology 11/22/17 documented as of this encounter
--- OUTSIDE RECORDS SUMMARY | 2024-04-24 13:51 | XMS_ITS | Encounter Summary ---
Author Organization [facility] Healthcare Address [address] [place] [address] Care Team Providers Care Utilities Operator Name Role Phone Ravi Smith MD Primary Care Provider [phone] Aft, Kianna Machado MD PhD Unavailable [phone] Santiago Gilbert MD Unavailable [phone] Encounter Details Date Type Department Care Team (Late st Contact Info) Description 03/14/2018 Telephone [facility] ([facility]) [address] [place] [address] [id number] [place] [address] [place] [address] [phone] [place], [place] [id number] Social History Tobacco Use Types Packs/Day Years Used Date Smoking Tobacco: Former Cigarettes 2015 Smokeless Tobacco: Never Alcohol Use Standard Drinks/Week Comments Yes 0 (1 standard drink = 0.6 oz pur e alcohol) socially Comments No Sex and Gender Information Value Date Recorded Sex Assigned at Not on file Legal Sex Female 1:06 AM MILK SAMPLER Gender Identity Not on file Sexual Orientation Not on file documented as of this encounter Miscellaneous Notes * Telephone Encounter - Fatemeh Zarate RN - 03/14/2018 1:52 PM CST Already addressed this morning. Lomotil was called in and pt came in for IVF. DB SAMPLER * Telephone Encounter - Abbi Ventura MD - 03/14/2018 1:28 PM CST Can you call patient and see how she is doing? Ask her if she wants to try Lomotil. SAMPLER * Telephone Encounter - Sweetie Calderon NP - 03/14/2018 2:48 AM CST Patient called the exchange to report that she has been having diarrhea since Saturday. She is takingimodium as instructed by her oncology team. She denies dizziness, lightheadedness, nausea, vomiting, abdominal pain, fever, and chills. She reports fatigue and feels as if she may have the flu. She reports that she is able to drink fluids and keep fluids down. Patient encouraged to increase fluid intake and continue taking imodium as instructed. Patient to call back exchange if symptoms worsen ornew acute symptoms occur. Patient told to call nurse coordinator in the morning. She was told that the team may want her to come in for fluids, evaluation, and lab work in the morning. The page also stated that patient was having strange thoughts. When I asked patient about this she stated that she was done. When asked if she was planning to her hurt herself, she stated no, I am done with the chemotherapy, I do not get along with the oxaliplatin . SAMPLER documented in this encounter Plan of Treatment Not on file documented as of this encounter Visit Diagnoses Not on filedocumented in this encounter Care Teams Utilities Operator Relationship Specialty Start Date End Date Ravi Smith MD PCP - General 11/04/17 09/27/21 Aft, Kianna Machado MD PhD [address] [place] [address] Surgeon Surgical Oncology 11/22/17 Santiago Gilbert MD [address] [place] [address] Guardian Family Member Gastroenterology 11/22/17 documented as of this encounter
--- OUTSIDE RECORDS SUMMARY | 2024-04-24 13:51 | XMS_ITS | Encounter Summary ---
Author Organization [facility] Healthcare Address [address] [place] [address] Care Team Providers Care Clinical Data Assistant Name Role Phone Ravi Smith MD Primary Care Provider [phone] Aft, Kianna Machado MD PhD Unavailable [phone] Santiago Gilbert MD Unavailable [phone] Reason for Visit * Reason Comments AD (Adjustment Disorder) Encounter Details Date Type Department Care Team (Late st Contact Info) Description 03/06/2018 1:00 PM CDT Clinical Support [address] [address] Margarita Simms, PhD [address] [place] [address] Social History Tobacco Use Types Packs/Day Years Used Date Smoking Tobacco: Former Cigarettes 2015 Smokeless Tobacco: Never Alcohol Use Standard Drinks/Week Comments Yes 0 (1 standard drink = 0.6 oz pur e alcohol) socially Comments No Sex and Gender Information Value Date Recorded Sex Assigned at Not on file Legal Sex Female 1:06 AM VIRTUALIZATION CONSULTANT Gender Identity Not on file Sexual Orientation Not on file documented as of this encounter Progress Notes * Margarita Simms, PhD - 03/06/2018 1:00 PM CDT Patient Name: Aleah Gerber : 1955 Date of Evaluation: 03/06/18 Reason for Consult: coping with cancer and caregiver stress Referral Source: Med Onc PURPOSE: I met with the patient to assess psychological functioning and to initiate psychological services. The limits of confidentiality were described and the patient provided assent to the interview. The following is based on the patient's report and chart review. 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 PSYCHOLOGICAL STATUS / PSYCHIATRIC HISTORY: The patient endorsed having a history of anxiety and depression prior to cancer treatment. She is currently prescribed Effexor-XR 75 mg and Xanax .25mg daily. However, she does not take the Xanax daily. The patient denied current symptoms of depression, but endorsed anxiety. She has had a lot of loss in her life recently and disclosed that there is not a good treatment plan available for her ???s cardiac diagnosis. Further, she had a reaction to her last chemo that has caused some anxiety for today???s chemotherapy. She stated that she has difficulty with getting lost in thinking about the future and the past. She expressed feelings of mild guilt related to the impact of cancer on her family. The patient denied a history of hallucinations, delusions, suicide attempts, and manic episodes. The patient denied recent use of alcohol, tobacco, and recreational drugs. NORMATIVE EMOTIONAL EXPERIENCE: The following are relevant to the patient: Difficulty coping with cancer Difficulty coping with cancer treatment Sleep: Some difficulty with sleep. Psychosocial stressors: None identified. Social support: The patient endorsed having adequate support. However, the immediate family is strained given both her and her ???s illness. Help from others is not readily requested as needed. Sense of belonging was endorsed. Coping strategies: The patient reported using distraction. SOCIAL HISTORY: Marital status: Occupation & status: on leave Financial concerns: Denied Insurance concerns: Denied Legal concerns: Denied RISK ASSESSMENT: The patient flatly denied risk of harm to self or others and there was no evidenceof such during our meeting. The patient was deemed to be sustainable as an outpatient. MENTAL STATUS: Mood: Normal Affect: Congruent with mood, at times seemed anxious Level of consciousness & Orientation: Alert and oriented to person, place and time. Appearance: Appropriate Behavior/Motor: Normal Speech: Normal in terms of rate, tone and prosody Concentration: No deficits noted. Memory: No deficits noted or reported Thought Process: Logical and linear Insight: Normal Judgment: Normal Awareness & Understanding of Medical Status: The patient exhibited appreciation and understanding of cancer diagnosis/treatment plan. BARRIERS TO HEALTH CARE AND COMPLIANCE: None identified. ASSESSMENT: Mrs Aleah Gerber is a 62 year-old patient with a diagnosis of both Invasive ductal adenocarcinoma and mucinous adenocarcinoma of left colon. She is currently undergoing chemotherapy. The patient experiences emotions of grief and anxiety related to her cancer diagnosis, her ???s health, and recent family deaths. Patient meets criteria for adjustment disorder with anxious distress. DIAGNOSIS: adjustment disorder with anxious distress PLAN & RECOMMENDATIONS: 1. The patient will likely benefit from cognitive-behavioral therapy including mindfulness/relaxation training. Mindfulness exercise was facilitate during our consult today. A mindfulness cell phone application was provided for home use. She expressed interest in this approach. 2. The patient will follow-up on 03/20/2018 UALIZATION CONSULTANT documented in this encounter Plan of Treatment Not on file documented as of this encounter Visit Diagnoses Not on filedocumented in this encounter Care Teams Clinical Data Assistant Relationship Specialty Start Date End Date Ravi Smith MD PCP - General 11/04/17 09/27/21 Aft, Kianna Machado MD PhD [address] [place] [address] Surgeon Surgical Oncology 11/22/17 Santiago Gilbert MD [address] [place] [address] Bookkeeping Service Sales Agent Gastroenterology 11/22/17 documented as of this encounter
--- OUTSIDE RECORDS SUMMARY | 2024-04-24 13:51 | XMS_ITS | Encounter Summary ---
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) Procedures [id number]: (Fluorouracil / Leucovorin / Oxaliplatin) 14 Day Cycles Abbi Ventura MD [address] [place] [address] [address] [place] [address] Phone: tel: fax: [facility] Oncology [address] [place] [phone] Phone: tel: Referral ID Status Reason Start Date Expiration Date Visits Re quested Visits Authorized [id number] Closed 01/31/2018 05/05/2019 1 18 Encounter Details Date Type Department Care Team (Late st Contact Info) Description 03/25/2018 10:30 AM DAIRY LAB TECHNICIAN Infusion [facility] Oncology [address] [place] [address] 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); Hypokalemia; Malignant neoplasm of upper-inner [...] file Legal Sex Female 1:06 AM DAIRY LAB TECHNICIAN Gender Identity Not on file Sexual Orientation Not on file documented as of this encounter Last Filed Vital Signs Vital Sign Reading Time Taken Comments Blood Pressure 117/64 03/25/2018 10:33 AM DAIRY LAB TECHNICIAN Pulse 104 03/25/2018 10:33 AM DAIRY LAB TECHNICIAN Temperature 36.8 ??C (98.2 ??F) 03/25/2018 1 0:33 AM DAIRY LAB TECHNICIAN Respiratory Rate 16 03/25/2018 10:3 3 AM DAIRY LAB TECHNICIAN Oxygen Saturation 95% 03/25/2018 10: 33 AM DAIRY LAB TECHNICIAN Inhaled Oxygen Concentration - - Weight 107.6 kg (237 lb 4.8 oz) 018 10:33 AM DAIRY LAB TECHNICIAN Height - - Body Mass Index 36.08 03/19/2018 10:05 AM DAIRY LAB TECHNICIAN documented in this encounter Nursing Notes * Ashlyn Burger, RN - 03/25/2018 10:30 AM CST Chemotherapy Nursing Note [facility] ON[facility] Aleah Gerber is a 62 y.o. female who presents for chemotherapy cycle 4, day(s) 1 of FOLFOX (D963). Pre-treatment nursing assessment: No problems identified upon assessment. Patient met treatment parameters, K 2.9 today. Patient received 40 mEq IV replacement today and verbally agrees to peanut picker oral replacement on way home today. BP 117/64 Pulse 104 Temp 36.8 ??C (98.2 ??F) (Oral) Resp 16 Wt 107.6 kg (237 lb 4.8 oz) SpO2 95% BMI 36.08 kg/m?? Pain Score: 0 Body surface area is 2.27 meters squared. Body mass index is 36.08 kg/m??. Chemotherapy: Aleah Gerber tolerated treatment well. Post blood return: Brisk IV access post infusion: NS and Other: sent home with CIVI pump, disconnect kit provided for home use. Patient Education Learner: Patient Readiness to learn: [...] by: Self and Friend Discharged To: Home Y LAB TECHNICIAN Y LAB TECHNICIAN 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)- Primary Malignant neoplasm of descending colon Hypokalemia Hypopotassemia Malignant neoplasm of upper-inner quadrant [...] mL/hr, Administer over 20 Minutes, Once, On Sat03/25/18 at 1215, For 1 doseIndications:Malignant neoplasm of descending colon (CMS/HCC) (HCC) New Bag 03/25/2018 11:43 AM DAIRY LAB TECHNICIAN 10 mg 153 mL/hr fluorouracil (ADRUCIL) 5,550 mg in cadd cassette 111 mL infusion - for home infusion 5,550 mg (rounded from 5,568 mg = 2,400 mg/m2 ? 2.32 m2 Treatment Plan BSA from Recorded weight), intravenous, at 2.4 mL/hr, Administer over 46 Hours, over 46 hours, First dose on Sat03/25/18 at 1515, FOR PUMP PROBLEMS CALL [phone] IrritantIndications:Tammie gnant neoplasm of descending colon (CMS/HCC) (HCC) Given 03/25/2018 4:06 PM DAIRY LAB TECHNICIAN 5,550 mg 2.4 mL/hr fluorouracil (ADRUCIL) IV syringe 925 mg 18.5 mL 925 mg (rounded from 928 mg = 400 mg/m2 ? 2.32 m2 Treatment Plan BSA from Recorded weight), intravenous, Administer over 5 Minutes, Once, On Sat03/25/18 at 1445, For 1 dose, IrritantIndications:Tammie gnant neoplasm of descending colon (CMS/HCC) (HCC) New Bag 03/25/2018 4:02 PM DAIRY LAB TECHNICIAN 925 mg leucovorin 925 mg in dextrose 5% 250 mL IVPB 925 mg (rounded from 928 mg = 400 mg/m2 ? 2.32 m2 Treatment Plan BSA from Recorded weight), intravenous, at 134.3 mL/hr, Administer over 2 Hours, Once, On Sat03/25/18 at 1245, For 1 dose, Run concurrently with oxaliplatin. Do not exceed rate of 160 mg/min. 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) New Bag 03/25/2018 12:22 PM DAIRY LAB TECHNICIAN 925 mg 134.3 mL/hr palonosetron injection 250 mcg 250 mcg (0.25 mg), intravenous, Once, On Sat03/25/18 at 1215, For 1 dose, For IV push, administer over 30 seconds.Indications:Malign ant neoplasm of descending colon (CMS/HCC) (HCC) Given 03/25/2018 11:41 AM DAIRY LAB TECHNICIAN 250 mcg potassium chloride 40 mEq in sodium chloride 0.9% 500 mL IVPB 40 mEq, intravenous, at 130 mL/hr, Administer over 4 Hours, Once, On Sat03/25/18 at 1230, For 1 doseIndications:Hypokalemi a,Malignant neoplasm of upper-inner quadrant of left breast in female, estrogen receptor negative (HCC) New Bag 03/25/2018 11:59 AM DAIRY LAB TECHNICIAN 40 mEq 130 mL/hr documented in this encounter Orders Medications Ordered That [place] ht Not Have Been Administered Count Last Ordered Date First Ordered Date dextrose 5% infusion 1 03/25/2018 Nursing Count Last Ordered Date First Orde red Date ONC NURSING COMMUNICATION NEUROPATHY 03/07 ONCBCN TREATMENT PARAMETERS 2 03/25/2018 Appointment Requests Count Last Ordered Date Fi rst Ordered Date ONCBCN RETURN CHEMO 4HRS 03/25/2018 documented in this encounter Care Teams Game Engineer Relationship Specialty Start Date End Date Ravi Smith MD PCP - General 11/04/17 09/27/21 Aft, Kianna Machado MD PhD [address] [place] [address] Surgeon Surgical Oncology 11/22/17 Santiago Gilbert MD [address] [place] [address] Nutrition Instructor Gastroenterology 11/22/17 documented as of this encounter
--- OUTSIDE RECORDS SUMMARY | 2024-04-24 13:51 | XMS_ITS | Encounter Summary ---
Author Organization [facility] Address [address] [place] [address] Phone Care Team Providers Care Television Repairman Name Role Phone Ravi Smith MD Primary Care Provider [phone] Aft, Kianna Machado MD PhD Unavailable [phone] Santiago Gilbert MD Unavailable [phone] Encounter Details Date Type Department Care Team (Late st Contact Info) Description 03/25/2018 Telephone [facility] [address] [place] [id number] Fatemeh Zarate RN Social History Tobacco Use Types Packs/Day Years Used Date Smoking Tobacco: Former Cigarettes 2015 Smokeless Tobacco: Never Alcohol Use Standard Drinks/Week Comments Yes 0 (1 standard drink = 0.6 oz pur e alcohol) socially Comments No Sex and Gender Information Value Date Recorded Sex Assigned at Not on file Legal Sex Female 1:06 AM ADMINISTRATIVE ASSOCIATE Gender Identity Not on file Sexual Orientation Not on file documented as of this encounter Miscellaneous Notes * Telephone Encounter - Fatemeh Zartae RN - 03/25/2018 5:43 PM CST ----- Message from Fatemeh Zarate RN sent at 03/25/2018 11:46 AM ADMINISTRATIVE ASSOCIATE ----- Regarding: Potassium 03/25/18 Aleah Gerber, 59 Here for chemo today. She said the diarrhea stopped 4 days ago but her potassium level is still low at 2.9. Gave her IV K+ 40 meq today but do you want to start her on oral potassium? DB 03/25/18 yes. Kcl 20meq q day. Abbi Lorenzo 03/25/18 Spoke to pt and she is aware that Dr. Ventura would like her to start taking potassium 20 meq once daily everyday. [facility] [place] Pt verbalized an understanding. DB NISTRATIVE ASSOCIATE NISTRATIVE ASSOCIATE documented in this encounter Plan of Treatment Not on file documented as of this encounter Visit Diagnoses Not on filedocumented in this encounter Care Teams Television Repairman Relationship Specialty Start Date End Date Ravi Smith MD PCP - General 11/04/17 09/27/21 Aft, Kianna Machado MD PhD [address] [place] [address] Surgeon Surgical Oncology 11/22/17 Santiago Gilbert MD [address] [place] [address] Landscape Account Manager Gastroenterology 11/22/17 documented as of this encounter
--- OUTSIDE RECORDS SUMMARY | 2024-04-24 13:51 | XMS_ITS | Encounter Summary ---
Author Organization [facility] Address [address] [place] [address] Phone Care Team Providers Care Chemical Processing Technician Name Role Phone Ravi Smith MD Primary Care Provider [phone] AileentKianna MD PhD Unavailable [phone] Santiago Gilbert MD Unavailable Encounter Details Date Type Department Care Team (Late st Contact Info) Description 03/03/2018 Orders Only [facility] Scheduling [address] [place] [address] Zanilc, Tamara, RMA Social History Tobacco Use Types Packs/Day Years Used Date Smoking Tobacco: Former Cigarettes 2015 Smokeless Tobacco: Never Alcohol Use Standard Drinks/Week Comments Yes 0 (1 standard drink = 0.6 oz pur e alcohol) socially Comments No Sex and Gender Information Value Date Recorded Sex Assigned at Not on file Legal Sex Female 1:06 AM VENEER REPAIRER MACHINE Gender Identity Not on file Sexual Orientation Not on file documented as of this encounter Plan of Treatment Not on file documented as of this encounter Visit Diagnoses Not on filedocumented in this encounter Care Teams Chemical Processing Technician Relationship Specialty Start Date End Date Ravi Smith MD PCP - General 11/04/17 09/27/21 Kianna Bunch MD PhD [address] [place] [address] Surgeon Surgical Oncology 11/22/17 Santiago Gilbert MD [address] [place] [address] Optimization Analyst Gastroenterology 11/22/17 documented as of this encounter
--- OUTSIDE RECORDS SUMMARY | 2024-04-24 13:51 | XMS_ITS | Encounter Summary ---
Author Organization [facility] Address [address] [place] [address] Phone Care Team Providers Care Vice President Of Instruction Name Role Phone Ravi Smith MD Primary Care Provider [phone] Aft, Kianna Machado MD PhD Unavailable [phone] Santiago Gilbert MD Unavailable [phone] Reason for Visit * Episode Based Medications (Routine) - Closed Specialty Diagnoses / Procedures Referred By Contac t Referred To Contact Diagnoses Malignant neoplasm of descending colon (CMS/HCC) (HCC) Procedures [id number]: (Fluorouracil / Leucovorin / Oxaliplatin) 14 Day Cycles Abbi Ventura MD 10 [facility] [address] [place] [address] Phone: tel: fax: [facility] [address] [place] [address] Phone: tel: Referral ID Status Reason Start Date Expiration Date Visits Re quested Visits Authorized [id number] Closed 01/31/2018 05/05/2019 1 18 Encounter Details Date Type Department Care Team (Latest Contact Info) Description 03/06/2018 10:30 AM CDT Clinical Support [facility] [address] [place] [address] Malignant neoplasm of descending colon (CMS/HCC); Malignant [...] file Legal Sex Female 1:06 AM CLINICAL TRIAL EDUCATOR Gender Identity Not on file Sexual Orientation Not on file documented as of this encounter Plan of Treatment Not on file documented as of this encounter Procedures Procedure Name Priority Date/Time Associated Diagnosis Comments DIFFERENTIAL AUTO Routine 03/06/2018 10: 38 AM CDT Malignant neoplasm of descending colon (CMS/HCC) Malignant neoplasm of upper-inner quadrant of left breast in female, 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) CBC WITH AUTO DIFFERENTIAL Routine 03/06/2018 10:38 AM CDT Malignant neoplasm of descending colon (CMS/HCC) Malignant neoplasm of upper-inner quadrant of left breast in female, 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) COMPREHENSIVE METABOLIC PANEL STAT 03/06/2018 10:38 AM CDT Malignant neoplasm of descending colon (CMS/HCC) Malignant neoplasm of upper-inner quadrant of left breast in female, 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) documented in this encounter Results * Differential, auto (03/06/2018 10:38 AM CDT) Neutrophil abs 5.1 1.7 - 6.5 K/cumm [facility] Imm gran abs 0.0 0.0 - 0.1 K/cumm [facility] Lymphocyte abs 1.5 0.8 - 3.3 K/cumm [facility] Monocyte abs 0.5 0.2 - 0.8 K/cumm [facility] Eosinophil abs 0.4 0.0 - 0.5 K/cumm [facility] Basophil abs 0.0 0.0 - 0.1 K/cumm [facility] Neutrophil pct 67.2 % [facility] Comment: Interpretive Data Percent cell count reference ranges are not reported, since discordance with absolute values may lead to misinterpretation of CBC data. Current Interpretive Data was last revised on 2017. Imm gran pct 0.7 % [facility] Comment: Interpretive Data Percent cell count reference ranges are not reported, since discordance with absolute values may lead to misinterpretation of CBC data. Current Interpretive Data was last revised on 2017. Lymphocyte pct 19.8 % [facility] Comment: Interpretive Data Percent cell count reference ranges are not reported, since discordance with absolute values may lead to misinterpretation of CBC data. Current Interpretive Data was last revised on 2017. Monocyte pct 6.3 % [facility] Comment: Interpretive Data Percent cell count reference ranges are not reported, since discordance with absolute values may lead to misinterpretation of CBC data. Current Interpretive Data was last revised on 2017. Eosinophil pct 5.7 % [facility] Comment: Interpretive Data Percent cell count reference ranges are not reported, since discordance with absolute values may lead to misinterpretation of CBC data. Current Interpretive Data was last revised on 2017. Basophil pct 0.3 % [facility] Comment: Interpretive Data Percent cell count reference ranges are not reported, since discordance with absolute values may lead to misinterpretation of CBC data. Current Interpretive Data was last revised on 2017. Blood specimen (specimen) 03/06/2018 10:38 AM CDT 03/06/2018 10:39 AM CDT Narrative [facility] - 03/06/2018 10:44 AM CDT us Abbi Ventura MD LAB BLOOD ORDERABLES Final Resul t [facility] Department [place] [address] * Comprehensive metabolic panel (03/06/2018 10:38 AM CDT) Sodium 138 135 - 145 mmol/L [facility] Potassium, pl 3.5 3.3 - 4.9 mmol/L [facility] Chloride 104 97 - 110 mmol/L [facility] CO2 25 22 - 32 mmol/L [facility] Anion gap 9 2 - 15 mmol/L [facility] BUN 22 8 - 25 mg/dL [facility] Creatinine 0.89 0.60 - 1.10 mg/dL [facility] Glucose 176 70 - 199 mg/dL [facility] Comment: Interpretive Data Fasting [...] 2017. Calcium 9.2 8.5 - 10.3 mg/dL [facility] Bilirubin, total 0.4 0.1 - 1.2 mg/dL [facility] Protein, pl 6.6 6.5 - 8.5 g/dL [facility] Albumin 4.1 3.5 - 5.0 g/dL [facility] Alk phos 84 40 - 130 Units/L [facility] ALT 20 7 - 45 Units/L [facility] AST 21 10 - 45 Units/L [facility] Blood specimen (specimen) 03/06/2018 10:38 AM CDT 03/06/2018 10:39 AM CDT Narrative [facility] - 03/06/2018 11:00 AM CDT us Abbi Ventura MD LAB BLOOD ORDERABLES Final Resul t [facility] Department [place] [address] * (ABNORMAL) CBC with auto differential (03/06/2018 10:38 AM CDT) WBC 7.6 3.8 - 9.9 K/cumm [facility] Hgb 11.3(L) 11.9 - 15.5 g/dL [facility] Hct 33.4(L) 35.6 - 45.5 % [facility] Plt 107(L) 150 - 400 K/cumm [facility] MPV 9.2 9.1 - 12.3 fL [facility] RBC 3.75(L) 3.90 - 5.20 M/cumm [facility] MCV 89.1 81.3 - 96.4 fL [facility] MCH 30.1 27.1 - 33.3 pg [facility] MCHC 33.8 32.3 - 35.7 g/dL [facility] RDW CV 13.4 11.1 - 14.9 % [facility] RDW SD 43.2 35.7 - 48.1 fL [facility] NRBC abs 0.00 0.00 - 0.01 K/cumm [facility] Blood specimen (specimen) 03/06/2018 10:38 AM CDT 03/06/2018 10:39 AM CDT Narrative [facility] - 03/06/2018 10:44 AM CDT us Abbi Ventura MD LAB BLOOD ORDERABLES Final Resul t [facility] Department [place] [address] documented in this encounter Visit Diagnoses Diagnosis Malignant neoplasm of descending colon (CMS/HCC) (HCC) Malignant neoplasm 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, estrogen receptor negative (HCC) documented in this encounter Orders Appointment Requests Count Last Ordered Date Fi rst Ordered Date ONCBCN LAB APPOINTMENT 1 03/06/2018 documented in this encounter Care Teams Vice President Of Instruction Relationship Specialty Start Date End Date Ravi Smith MD PCP - General 11/04/17 09/27/21 Aft, Kianna Machado MD PhD [address] [place] [address] Surgeon Surgical Oncology 11/22/17 Santiago Gilbert MD [address] [place] [address] Legal Service Specialist Gastroenterology 11/22/17 documented as of this encounter
--- OUTSIDE RECORDS SUMMARY | 2024-04-24 13:51 | XMS_ITS | Encounter Summary ---
Author Organization [facility] Address [address] [place] [address] Phone Care Team Providers Care Shredder Tender Peat Name Role Phone Ravi Smith MD Primary Care Provider [phone] Aft, Kianna Machado MD PhD Unavailable [phone] Santiago Gilbert MD Unavailable [phone] Encounter Details Date Type Department Care Team (Late st Contact Info) Description 03/14/2018 Orders Only [facility] [address] [place] [address] Abbi Ventura MD 10 [facility] [address] [place] [address] Dehydration (Primary Dx) Social History Tobacco Use Types Packs/Day Years Used Date Smoking Tobacco: Former Cigarettes 2015 Smokeless Tobacco: Never Alcohol Use Standard Drinks/Week Comments Yes 0 (1 standard drink = 0.6 oz pur e alcohol) socially Comments No Sex and Gender Information Value Date Recorded Sex Assigned at Not on file Legal Sex Female 1:06 AM EXTRUSION DIE REPAIRER Gender Identity Not on file Sexual Orientation Not on file documented as of this encounter Ordered Prescriptions Prescription Sig Dispense Quantity Refills Last Filled Start Date End Date diphenoxylate-atro pine (LOMOTIL) 2.5-0.025 mg per tabletIndications: Chemotherapy-Induc ed Diarrhea,diarrhea Take 1 tablet by mouth 4 (four) times a day as needed for diarrhea. 60 tablet 3 03/14/2018 09/22/2018 documented in this encounter Plan of Treatment Not on file documented as of this encounter Results * Magnesium (03/14/2018 12:07 PM EXTRUSION DIE REPAIRER) Pathologist [facility] Magnesium 1.7 1.4 - 2.5 mg/dL [facility] Blood specimen (specimen) 03/14/2018 12:07 PM EXTRUSION DIE REPAIRER 03/14/2018 12:07 PM EXTRUSION DIE REPAIRER Narrative [facility] - 03/14/2018 12:51 PM EXTRUSION DIE REPAIRER us Abbi Ventura MD LAB BLOOD ORDERABLES Final Resul t [facility] Department [place] [address] * (ABNORMAL) Basic metabolic panel (03/14/2018 12:07 PM EXTRUSION DIE REPAIRER) Pathologist [facility] Sodium 136 135 - 145 mmol/L [facility] Potassium, pl 3.0(L) 3.3 - 4.9 mmol/L [facility] Chloride 100 97 - 110 mmol/L [facility] CO2 24 22 - 32 mmol/L [facility] Anion gap 12 2 - 15 mmol/L [facility] BUN 21 8 - 25 mg/dL [facility] Creatinine 0.89 0.60 - 1.10 mg/dL [facility] Glucose 177 70 - 199 mg/dL [facility] 2017. Calcium 9.0 8.5 - 10.3 mg/dL [facility] Blood specimen (specimen) 03/14/2018 12:07 PM EXTRUSION DIE REPAIRER 03/14/2018 12:07 PM EXTRUSION DIE REPAIRER Narrative [facility] - 03/14/2018 12:51 PM EXTRUSION DIE REPAIRER us Abbi Ventura MD LAB BLOOD ORDERABLES Final Resul t [facility] One [facility] [place] [address] documented in this encounter Visit Diagnoses Diagnosis Dehydration- Primary Dehydration documented in this encounter Care Teams Shredder Tender Peat Relationship Specialty Start Date End Date Ravi Smith MD PCP - General 11/04/17 09/27/21 Aft, Kianna Machado MD PhD [address] [place] [address] Surgeon Surgical Oncology 11/22/17 Santiago Gilbert MD [address] [place] [address] Electronics Hardware Design Engineer Gastroenterology 11/22/17 documented as of this encounter
--- OUTSIDE RECORDS SUMMARY | 2024-04-24 13:51 | XMS_ITS | Encounter Summary ---
Author Organization [facility] Address [address] [place] [address] Phone Care Team Providers Care Ice Bag Assembler Name Role Phone Ravi Smith MD Primary Care Provider [phone] Aft, Kianna Machado MD PhD Unavailable [phone] Santiago Gilbert MD Unavailable [phone] Reason for Visit * Reason Comments OP Infusion * Episode Based Medications (Routine) - Closed Specialty Diagnoses / Procedures Referred By Contac t Referred To Contact Diagnoses Malignant neoplasm of upper-inner quadrant of left breast in female, estrogen receptor negative (HCC) Hypokalemia Hypomagnesemia Procedures IVF Abbi Ventura MD 10 [facility] [address] [place] [address] Phone: tel: fax: [facility] [address] [place] [address] Phone: tel: fax: Referral ID Status Reason Start Date Expiration Date Visits Re quested Visits Authorized [id number] Closed 03/14/2018 10/22/2018 99 99 Encounter Details Date Type Department Care Team (Late st Contact Info) Description 03/14/2018 11:45 AM SENIOR REPORT DEVELOPER Infusion [facility] [address] [place] [phone] Dehydration (Primary Dx); Malignant neoplasm of descending colon (CMS/HCC); Malignant neoplasm of upper-inner quadrant of left breast in female, 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); Hypokalemia Social History Tobacco Use Types Packs/Day Years Used Date Smoking Tobacco: Former Cigarettes 2015 Smokeless Tobacco: Never Alcohol Use Standard Drinks/Week Comments Yes 0 (1 standard drink = 0.6 oz pur e alcohol) socially Comments No Sex and Gender Information Value Date Recorded Sex Assigned at Not on file Legal Sex Female 1:06 AM SENIOR REPORT DEVELOPER Gender Identity Not on file Sexual Orientation Not on file documented as of this encounter Last Filed Vital Signs Vital Sign Reading Time Taken Comments Blood Pressure 137/90 03/14/2018 12:07 PM SENIOR REPORT DEVELOPER Pulse 125 03/14/2018 12:07 PM SENIOR REPORT DEVELOPER Temperature 37 ??C (98.6 ??F) 03/14/2018 12: 07 PM SENIOR REPORT DEVELOPER Respiratory Rate 18 03/14/2018 12:0 7 PM SENIOR REPORT DEVELOPER Oxygen Saturation 96% 03/14/2018 12: 07 PM SENIOR REPORT DEVELOPER Inhaled Oxygen Concentration - - Weight 103.8 kg (228 lb 14.4 oz) 2017 12:07 PM SENIOR REPORT DEVELOPER Height - - Body Mass Index 34.8 03/06/2018 12:14 PM CDT documented in this encounter Nursing Notes * Ashlyn Burger RN - 03/14/2018 11:45 AM CST Patient completed 1L NS, no longer orthostatic and states feeling much better. Potassium level 3.0,Fatemeh notified. 20meQ IV ordered today and patient to pick up and delivery driver 40meQ to take tomorrow morning. Instructions communicated to patient, she verbally understands and will pick up and delivery driver on her way home. ToleratedIV K well, sent home in stable condition. 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) Malignant neoplasm 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, estrogen receptor negative (HCC) Hypokalemia Hypopotassemia documented in this encounter Administered Medications Inactive Administered Medications - up to 3 most recent administrations Medication Order MAR Action Action Date Dose Rate Site potassium chloride 20 mEq in sodium chloride 0.9% 250 mL IVPB 20 mEq, intravenous, at 130 mL/hr, Administer over 2 Hours, Once, On Sat03/14/18 at 1445, For 1 doseIndications:Hypokalemia ,Malignant neoplasm of upper-inner quadrant of left breast in female, estrogen receptor negative (HCC) New Bag 03/14/2018 2:14 PM SENIOR REPORT DEVELOPER 20 mEq 130 mL/hr sodium chloride 0.9% bolus 1,000 mL 1,000 mL, intravenous, at 666.7 mL/hr, Administer over 90 Minutes, Once, On Sat03/14/18 at 1300, For 1 dose, Please check orthostatic b/p pre and post infusion.Indications:Dehydr ation,Malignant neoplasm of descending colon (CMS/HCC) (HCC),Malignant neoplasm of upper-inner quadrant of left breast in female, estrogen receptor negative (HCC) New Bag 03/14/2018 12:19 PM SENIOR REPORT DEVELOPER 1,000 mL 666.7 mL/hr documented in this encounter Orders Medications Ordered That [place] ht Not Have Been Administered Count Last Ordered Date First Ordered Date heparin 100 unit/mL injection 500 Units 1 1 05/14/2017 sodium chloride 0.9% flush 10 mL 1 03/14/20 documented in this encounter Care Teams Ice Bag Assembler Relationship Specialty Start Date End Date Ravi Smith MD PCP - General 11/04/17 09/27/21 Aft, Kianna Machado MD PhD [address] [place] [address] Surgeon Surgical Oncology 11/22/17 Santiago Gilbert MD [address] [place] [address] Robotics Application Engineer Gastroenterology 11/22/17 documented as of this encounter
--- OUTSIDE RECORDS SUMMARY | 2024-04-24 13:51 | XMS_ITS | Encounter Summary ---
Author Organization [facility] Address [address] [place] [address] Care Team Providers Care Plant Protection Officer Name Role Phone Ravi Smith MD Primary Care Provider [phone] Aft, Kianna Machado MD PhD Unavailable [phone] Santiago Gilbert MD Unavailable [phone] Encounter Details Date Type Department Care Team (Latest Contact Info) Description 03/07/2018 4:22 PM CDT - 03/07/2018 11:59 PM CDT Hospital Encounter [facility] [address] [place] [address] Discharge Disposition: Discharge to home or self care Social History Tobacco Use Types Packs/Day Years Used Date Smoking Tobacco: Former Cigarettes 2015 Smokeless Tobacco: Never Alcohol Use Standard Drinks/Week Comments Yes 0 (1 standard drink = 0.6 oz pur e alcohol) socially Comments No Sex and Gender Information Value Date Recorded Sex Assigned at Not on file Legal Sex Female 1:06 AM DUST COLLECTOR TREATER Gender Identity Not on file Sexual Orientation [...] 2 weeks. 10 tablet 3 01/31/2018 9 famotidine (PEPCID) 20 mg tablet Take [...] as needed (constipation). 30 packet 01/06/2018 9 prochlorperazine (COMPAZINE) 10 mg tablet Take 1 tablet (10 mg total) by mouth every 6 (six) hours as needed for nausea. 30 tablet 3 01/31/2018 9 psyllium 0.52 gram capsuleIndicatio ns:constipation Take 1 capsule (0.52 g total) by mouth daily. In case of constipation 30 capsule 11 12/31/2017 9 venlafaxine XR (EFFEXOR-XR) 75 mg 24 [...] Comments NEURO CT MR OUTSIDE REFERENCE Routine 03/07/2018 4:22 PM CDT Diagnosis unknown documented in this encounter Results * Neuro CT MR Outside Reference (03/07/2018 4:22 PM CDT) Anatomical Region Laterality Modality N/A Computed Tomogra phy Impressions 03/07/2018 4:22 PM CDT These images are for Reference purposes only and have not been reviewed by [facility] Radiology. ??There will be no report generated by a [facility] Radiologist. Narrative 03/07/2018 4:22 PM CDT EXAMINATION: ??Images For Reference Purposes Only us Abbi Ventura MD IMG CT PROCEDURES Final Result documented in this encounter Visit Diagnoses Not on filedocumented in this encounter Care Teams Plant Protection Officer Relationship Specialty Start Date End Date Ravi Smith MD PCP - General 11/04/17 09/27/21 Aft, Kianna Machado MD PhD [address] [place] [address] Surgeon Surgical Oncology 11/22/17 Santiago Gilbert MD [address] [place] [address] Deputy Register Of Deeds Gastroenterology 11/22/17 documented as of this encounter
--- OUTSIDE RECORDS SUMMARY | 2024-04-24 13:51 | XMS_ITS | Encounter Summary ---
Author Organization [facility] Address [address] [place] [address] Phone Care Team Providers Care Tube Winder Name Role Phone Ravi Smith MD Primary Care Provider [phone] Aft, Kianna Machado MD PhD Unavailable [phone] Santiago Gilbert MD Unavailable [phone] Encounter Details Date Type Department Care Team (Late st Contact Info) Description 03/18/2018 Telephone [facility] [address] [place] [id number] Fatemeh Zarate, RN Social History Tobacco Use Types Packs/Day Years Used Date Smoking Tobacco: Former Cigarettes 2015 Smokeless Tobacco: Never Alcohol Use Standard Drinks/Week Comments Yes 0 (1 standard drink = 0.6 oz pur e alcohol) socially Comments No Sex and Gender Information Value Date Recorded Sex Assigned at Not on file Legal Sex Female 1:06 AM ELECTRONIC ASSEMBLER GROUP LEADER Gender Identity Not on file Sexual Orientation Not on file documented as of this encounter Miscellaneous Notes * Telephone Encounter - Fatemeh Zarate RN - 03/18/2018 12:45 PM CST 03/18/18 Aleah called and said that after she received IVF on 03/14/18 that she felt much better. She said that starting the following day that she was having large diarrhea stools every hour for the last 3 days. Asked pt to elaborate. She said she was taking notes and would forward them to me through My Chart. Received the notes but they are not very detailed. Note indicated that on Saturday she had 4 diarrhea stools and had taken 3 lomotil and 4 immodium. According to patient she thinks she had at least 6-8 watery stools. Note documented that on Saturday she had 3-5 watery stools, but patient thinks she had 9. She took 2 lomotil, and 4 immodium. Note indicates that on Saturday she had 8 waterystools and took 2 lomotil and 2 immodium. The patient tells me that she has been taking lomotil 4 times daily and approx 6 immodium per day. She also states that she is having large watery stools every hour. Her notes do not indicate that. Unsuccessful getting over the phone assessment. Pt said that she has occasional dizziness. I asked pt to come into [facility] today for orthostatic b/p to assess hydration status, for IVF and so that we can obtain stool sample for c-diff and stool culture. Patient said she cannot get a ride to [facility] today and she is scheduled to see Dr. Ventura tomorrow. DB TRONIC ASSEMBLER GROUP LEADER documented in this encounter Plan of Treatment Not on file documented as of this encounter Visit Diagnoses Not on filedocumented in this encounter Care Teams Tube Winder Relationship Specialty Start Date End Date Ravi Smith MD PCP - General 11/04/17 09/27/21 Aft, Kianna Machado MD PhD [address] [place] [address] Surgeon Surgical Oncology 11/22/17 Santiago Gilbert MD [address] [place] [address] Video Game Designer Gastroenterology 11/22/17 documented as of this encounter
--- OUTSIDE RECORDS SUMMARY | 2024-04-24 13:51 | XMS_ITS | Encounter Summary ---
Author Organization [facility] Address [address] [place] [address] Phone Care Team Providers Care Girls Tennis Coach Name Role Phone Ravi Smith MD Primary Care Provider [phone] Aft, Kianna Machado MD PhD Unavailable [phone] Santiago Gilbert MD Unavailable [phone] Encounter Details Date Type Department Care Team (Late st Contact Info) Description 03/26/2018 Telephone [facility] [address] [place] [id number] Fatemeh Zarate, RN Social History Tobacco Use Types Packs/Day Years Used Date Smoking Tobacco: Former Cigarettes 2015 Smokeless Tobacco: Never Alcohol Use Standard Drinks/Week Comments Yes 0 (1 standard drink = 0.6 oz pur e alcohol) socially Comments No Sex and Gender Information Value Date Recorded Sex Assigned at Not on file Legal Sex Female 1:06 AM FOREST MANAGEMENT PROFESSOR Gender Identity Not on file Sexual Orientation Not on file documented as of this encounter Miscellaneous Notes * Telephone Encounter - Fatemeh Zarate RN - 03/26/2018 9:[address] MANAGEMENT PROFESSOR documented in this encounter Plan of Treatment Not on file documented as of this encounter Visit Diagnoses Not on filedocumented in this encounter Care Teams Girls Tennis Coach Relationship Specialty Start Date End Date Ravi Smith MD PCP - General 11/04/17 09/27/21 Aft, Kianna Machado MD PhD [address] [place], [place] [id number] Surgeon Surgical Oncology 11/22/17 Santiago Gilbert MD [address] [place] [address] Radio Despatcher Gastroenterology 11/22/17 documented as of this encounter
--- OUTSIDE RECORDS SUMMARY | 2024-04-24 13:51 | XMS_ITS | Encounter Summary ---
Author Organization [facility] Address [address] [place] [address] Phone Care Team Providers Care Machine Assembler For Puller Over Name Role Phone Ravi Smith MD Primary Care Provider [phone] Aft, Kianna Machado MD PhD Unavailable [phone] Santiago Gilbert MD Unavailable [phone] Encounter Details Date Type Department Care Team (Late st Contact Info) Description 03/14/2018 11:30 AM TRANSFER AND PUMPHOUSE OPERATOR CHIEF Clinical Support [facility] Oncology [address] [place] [address] Dehydration Social History Tobacco Use Types Packs/Day Years Used Date Smoking Tobacco: Former Cigarettes 2015 Smokeless Tobacco: Never Alcohol Use Standard Drinks/Week Comments Yes 0 (1 standard drink = 0.6 oz pur e alcohol) socially Comments No Sex and Gender Information Value Date Recorded Sex Assigned at Not on file Legal Sex Female 1:06 AM TRANSFER AND PUMPHOUSE OPERATOR CHIEF Gender Identity Not on file Sexual Orientation Not on file documented as of this encounter Plan of Treatment Not on file documented as of this encounter Procedures Procedure Name Priority Date/Time Associated Diagnosis Comments MAGNESIUM STAT 03/14/2018 12:07 PM TRANSFER AND PUMPHOUSE OPERATOR CHIEF Dehydration BASIC METABOLIC PANEL STAT 03/14/2018 12:07 PM TRANSFER AND PUMPHOUSE OPERATOR CHIEF Dehydration documented in this encounter Results * Magnesium (03/14/2018 12:07 PM TRANSFER AND PUMPHOUSE OPERATOR CHIEF) Pathologist [facility] Magnesium 1.7 1.4 - 2.5 mg/dL [facility] Blood specimen (specimen) 03/14/2018 12:07 PM TRANSFER AND PUMPHOUSE OPERATOR CHIEF 03/14/2018 12:07 PM TRANSFER AND PUMPHOUSE OPERATOR CHIEF Narrative [facility] - 03/14/2018 12:51 PM TRANSFER AND PUMPHOUSE OPERATOR CHIEF Abbi Ventura MD LAB BLOOD ORDERABLES Final Resul t [facility] [place] [address] * (ABNORMAL) Basic metabolic panel (03/14/2018 12:07 PM TRANSFER AND PUMPHOUSE OPERATOR CHIEF) [facility] Sodium 136 135 - 145 mmol/L [facility] Potassium, pl 3.0(L) 3.3 - 4.9 mmol/L [facility] Chloride 100 97 - 110 mmol/L [facility] CO2 24 22 - 32 mmol/L [facility] Anion gap 12 2 - 15 mmol/L [facility] BUN 21 8 - 25 mg/dL [facility] Creatinine 0.89 0.60 - 1.10 mg/dL [facility] Glucose 177 70 - 199 mg/dL [facility] Comment: Interpretive Data Fasting [...] 2017. Calcium 9.0 8.5 - 10.3 mg/dL [facility] Blood specimen (specimen) 03/14/2018 12:07 PM TRANSFER AND PUMPHOUSE OPERATOR CHIEF 03/14/2018 12:07 PM TRANSFER AND PUMPHOUSE OPERATOR CHIEF Narrative [facility] - 03/14/2018 12:51 PM TRANSFER AND PUMPHOUSE OPERATOR CHIEF us Abbi Ventura MD LAB BLOOD ORDERABLES Final Resul t [facility] [place] [address] documented in this encounter Visit Diagnoses Diagnosis Dehydration documented in this encounter Care Teams Machine Assembler For Puller Over Relationship Specialty Start Date End Date Ravi Smith MD PCP - General 11/04/17 09/27/21 Aft, Kianna Machado MD PhD [address] [place] [address] Surgeon Surgical Oncology 11/22/17 Santiago Gilbert MD [address] [place] [address] Brazing Furnace Feeder Gastroenterology 11/22/17 documented as of this encounter
--- OUTSIDE RECORDS SUMMARY | 2024-04-24 13:52 | XMS_ITS | Encounter Summary ---
Author Organization [facility] Address [address] [place] [address] Phone Care Team Providers Care Cognos Tm1 Developer Name Role Phone Ravi Smith MD Primary Care Provider [phone] Aft, Kianna Machado MD PhD Unavailable [phone] Santiago Gilbert MD Unavailable Encounter Details Date Type Department Care Team (Late st Contact Info) Description 01/21/2018 Telephone [facility] [address] [facility] Medicine 5th [place] [address] [place] [address] Rosa Alcantar, [facility] Social History Tobacco Use Types Packs/Day Years Used Date Smoking Tobacco: Former Cigarettes 2015 Smokeless Tobacco: Never Alcohol Use Standard Drinks/Week Comments Yes 0 (1 standard drink = 0.6 oz pur e alcohol) socially Comments No Sex and Gender Information Value Date Recorded Sex Assigned at Not on file Legal Sex Female 1:06 AM PRODUCT TRANSFER PUMPER Gender Identity Not on file Sexual Orientation Not on file documented as of this encounter Miscellaneous Notes * Telephone Encounter - Rosa Alcantar MA - 01/21/2018 8:00 AM CDT Spoke with pt and she will make sure she gets an appt scheduled. ----- Message from Rosa Alcantar MA sent at 01/02/2018 10:37 AM CDT ----- Spoke with Daisha, she is waiting for the pt to call and schedule. The pt knows they can't proceed until this is done. ----- Message ----- From: Rosa Alcantar MA Sent: 12/26/2017 1:02 PM To: Rosa Alcantar MA Left another message for Daisha to call me ----- Message ----- From: Rosa Alcantar MA Sent: 12/18/2017 3:34 PM To: Rosa Alcantar MA LM for Daisha at [facility] [phone] to check the status. ----- Message ----- From: Kristina Reid MA Sent: 12/12/2017 12:02 PM To: Rosa Alcantar MA Mailed results, called [facility] office lmom ----- Message ----- From: Kianna Bunch MD PhD Sent: 12/06/2017 9:58 AM To: Rosa Alcantar MA, # Rosa, Could you send this pt a copy of her genetic testing and arrange for her to see a genetic counselor? Danni, This pt is BRCA2 mutation + Kianna documented in this encounter Plan of Treatment Not on file documented as of this encounter Visit Diagnoses Not on filedocumented in this encounter Care Teams Cognos Tm1 Developer Relationship Specialty Start Date End Date Ravi Smith MD PCP - General 11/04/17 09/27/21 Kianna Bunch MD PhD [address] [place] [address] Surgeon Surgical Oncology 11/22/17 Santiago Gilbert MD [address] [facility] [address] [place] [address] Blade Operator Gastroenterology 11/22/17 documented as of this encounter
--- OUTSIDE RECORDS SUMMARY | 2024-04-24 13:52 | XMS_ITS | Encounter Summary ---
Author Organization [facility] Address [address] [place] [address] Phone Care Team Providers Care Horticulturalist Name Role Phone Ravi Smith MD Primary Care Provider [phone] Aft, Kianna Machado MD PhD Unavailable [phone] Santiago Gilbert MD Unavailable [phone] Encounter Details Date Type Department Care Team (Late st Contact Info) Description 02/24/2018 Orders Only [facility] Oncology [address] [place] [address] Abbi Ventura MD [address] [facility] [address] [place] [address] Malignant neoplasm of descending colon (CMS/HCC) (Primary [...] on file Legal Sex Female 1:06 AM CIGAR PACKER Gender Identity Not on file Sexual Orientation Not on file documented as of this encounter Plan of Treatment Not on file documented as of this encounter Visit Diagnoses Diagnosis Malignant neoplasm of descending colon (CMS/HCC) (HCC)- Primary Malignant neoplasm 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, estrogen receptor negative (HCC) documented in this encounter Care Teams Horticulturalist Relationship Specialty Start Date End Date Ravi Smith MD PCP - General 11/04/17 09/27/21 Aft, Kianna Machado MD PhD [address] [place] [address] Surgeon Surgical Oncology 11/22/17 Santiago Gilbert MD [address] [place] [address] Boat Crew Deck Hand Gastroenterology 11/22/17 documented as of this encounter
--- OUTSIDE RECORDS SUMMARY | 2024-04-24 13:52 | XMS_ITS | Encounter Summary ---
Author Organization [facility] Address [address] [place] [address] Phone Care Team Providers Care Climbing Guide Name Role Phone Ravi Smith MD Primary Care Provider [phone] Aft, Kianna Machado MD PhD Unavailable [phone] Santiago Gilbert MD Unavailable Encounter Details Date Type Department Care Team (Late st Contact Info) Description 01/31/2018 Orders Only [facility] Oncology [address] [facility] [address] [place] [address] Abbi Ventura MD [address] [facility] [address] [place] [address] Social History Tobacco Use Types Packs/Day Years Used Date Smoking Tobacco: Former Cigarettes 2015 Smokeless Tobacco: Never Alcohol Use Standard Drinks/Week Comments Yes 0 (1 standard drink = 0.6 oz pur e alcohol) socially Comments No Sex and Gender Information Value Date Recorded Sex Assigned at Not on file 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 Apply to port 1 hour before use and cover with tape. 30 g 3 01/31/2018 9 dexamethasone (DECADRON) 4 mg tablet Take 1 tab on days 2-4 of chemotherapy q 2 weeks. 10 tablet 3 01/31/2018 9 prochlorperazine (COMPAZINE) 10 mg tablet Take 1 tablet (10 mg total) by mouth every 6 (six) hours as needed for nausea. 30 tablet 3 01/31/2018 9 ondansetron (ZOFRAN) 8 mg tablet Take 1 tablet (8 mg total) by mouth every 8 (eight) hours as needed for nausea or vomiting. . Take 1 tablet every 8 hours for nausea.prn 30 tablet 3 01/31/2018 9 documented in this encounter Plan of Treatment Not on file documented as of this encounter Visit Diagnoses Not on filedocumented in this encounter Discontinued Medications Medication Sig Discontinue Reason Start Date End Da te ondansetron (ZOFRAN) 8 mg tablet Take 1 tablet at 11:00AM with Miralax prep. Take 1 tablet every 8 hours for nausea. Reorder 12/10/2017 01/31/2018 documented as of this encounter Care Teams Climbing Guide Relationship Specialty Start Date End Date Ravi Smith MD PCP - General 11/04/17 09/27/21 Aft, Kianna Machado MD PhD [address] [place] [address] Surgeon Surgical Oncology 11/22/17 Santiago Gilbert MD [address] [place] [address] Skein Yarn Dyer Gastroenterology 11/22/17 documented as of this encounter
--- OUTSIDE RECORDS SUMMARY | 2024-04-24 13:52 | XMS_ITS | Encounter Summary ---
Author Organization [facility] Address [address] [place] [address] Care Team Providers Care Shredded Filler Machine Wrapper Layer Name Role Phone Ravi Smith MD Primary Care Provider [phone] Aft, Kianna Machado MD PhD Unavailable [phone] Santiago Gilbert MD Unavailable [phone] Encounter Details Date Type Department Care Team (Late Contact Info) Description 01/14/2018 8:00 AM CDT Ancillary Procedure [facility] Social History Tobacco Use Types Packs/Day Years Used Date Smoking Tobacco: Former Cigarettes 2015 Smokeless Tobacco: Never Alcohol Use Standard Drinks/Week Comments Yes 0 (1 standard drink = 0.6 oz pur e alcohol) socially Comments No Sex and Gender Information Value Date Recorded Sex Assigned at Not on file 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 us Not In File Miscellaneous IMG MAMMO PROCEDURES F inal Result [facility] documented in this encounter Visit Diagnoses Not on filedocumented in this encounter Care Teams Shredded Filler Machine Wrapper Layer Relationship Specialty Start Date End Date Ravi Smith MD PCP - General 11/04/17 09/27/21 Aft, Kianna Machado MD PhD [address] [place] [address] Surgeon Surgical Oncology 11/22/17 Santiago Gilbert MD [address] [place] [address] Anthropological Linguist Gastroenterology 11/22/17 documented as of this encounter
--- OUTSIDE RECORDS SUMMARY | 2024-04-24 13:52 | XMS_ITS | Encounter Summary ---
Author Organization [facility] Address [address] [place] [address] Phone Care Team Providers Care Curriculum And Assessment Coordinator Name Role Phone Ravi Smith MD Primary Care Provider [phone] Aft, Kianna Machado MD PhD Unavailable [phone] Santiago Gilbert MD Unavailable [phone] Encounter Details Date Type Department Care Team (Late st Contact Info) Description 01/22/2018 Orders Only [facility] Oncology [address] [facility] [address] [place] [id number] Abbi Ventura MD 10 [facility] [address] [place], [place] [address] Malignant neoplasm of colon, unspecified part of colon (CMS/HCC) (Primary Dx) Social History Tobacco Use Types Packs/Day Years Used Date Smoking Tobacco: Former Cigarettes 2015 Smokeless Tobacco: Never Alcohol Use Standard Drinks/Week Comments Yes 0 (1 standard drink = 0.6 oz pur e alcohol) socially Comments No Sex and Gender Information Value Date Recorded Sex Assigned at Not on file 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 Gender Identity Not on file Sexual Orientation Not on file documented as of this encounter Miscellaneous Notes * Addendum Note - Connie Grimaldo - 01/22/2018 12:57 PM CDTAddended by: CONNIE GRIMALDO on: 01/28/2018 02:28 PM Modules accepted: Orders documented in this encounter Plan of Treatment Not on file documented as of this encounter Results * CEA (01/28/2018 2:32 PM CDT) CEA 1.59 0.10 - 5.00 ng/mL [facility] Comment: Interpretive Data Reference Range: Non-Smokers: < or = 3.0 ng/mL Some Smokers may have elevated levels, usually < 5.0 ng/mL On July 31, 2016 new Chemistry Instrumentation was implemented. ??If you have any questions, please contact the Laboratory at [phone]. Testing performed by: [facility], [address] [place] [address]., [address] Blood specimen (specimen) 01/28/2018 2:32 PM CDT 01/28/2018 6:12 PM CDT Narrative [facility] - 01/28/2018 6:52 PM CDT us Abbi Ventura MD LAB BLOOD ORDERABLES Final Resul t [facility] [id number] [facility]. [place] [address] * Comprehensive metabolic panel (01/28/2018 2:32 PM CDT) Sodium 142 135 - 145 mmol/L [facility] Potassium, pl 3.9 3.3 - 4.9 mmol/L [facility] Chloride 108 97 - 110 mmol/L [facility] CO2 23 22 - 32 mmol/L [facility] Anion gap 11 2 - 15 mmol/L [facility] BUN 14 8 - 25 mg/dL [facility] Creatinine 0.80 0.60 - 1.10 mg/dL [facility] Glucose 130 70 - 199 mg/dL [facility] Comment: Interpretive Data Fasting glucose >/= 126 [...] 2017. Calcium 8.8 8.5 - 10.3 mg/dL [facility] Bilirubin, total 0.3 0.1 - 1.2 mg/dL [facility] Protein, pl 6.6 6.5 - 8.5 g/dL [facility] Albumin 4.0 3.5 - 5.0 g/dL [facility] Alk phos 70 40 - 130 Units/L [facility] ALT 16 7 - 45 Units/L [facility] AST 22 10 - 45 Units/L [facility] Blood specimen (specimen) 01/28/2018 2:32 PM CDT 01/28/2018 2:53 PM CDT Narrative [facility] - 01/28/2018 3:32 PM CDT us Abbi Ventura MD LAB BLOOD ORDERABLES Final Resul t [facility] [address] [facility]. [place] [address] * (ABNORMAL) CBC with auto differential (01/28/2018 2:32 PM CDT) WBC 7.8 3.8 - 9.9 K/cumm [facility] Comment:Testing performed by : [facility], [address] [facility] [place] [address] Hgb 11.0(L) 11.9 - 15.5 g/dL [facility] Comment:Testing performed by : [facility], [address] [facility] [place] [address] Hct 34.0(L) 35.6 - 45.5 % [facility] Comment:Testing performed by : [facility], [address] [place] [address] [place] [address] Plt 161 150 - 400 K/cumm [facility] Comment:Testing performed by : [facility], [address] [place] [address] [place] [address] MPV 10.1 9.1 - 12.3 fL [facility] Comment:Testing performed by : [facility], [address] [place] [address] [place] [address] RBC 3.66(L) 3.90 - 5.20 M/cumm [facility] Comment:Testing performed by : [facility], [address] [place] [address] [place] [address] MCV 93 81 - 96 fL [facility] Comment:Testing performed by : [facility], [address] [place] [address] [place] [address] MCH 30.1 27.1 - 33.3 pg [facility] Comment:Testing performed by : [facility], [address] [place] [address] [place] [address] MCHC 32.4 32.3 - 35.7 g/dL [facility] Comment:Testing performed by : [facility], [address] [place], [place] [address] [place] [address] RDW CV 13.9 11.1 - 14.9 % [facility] Comment:Testing performed by : [facility], [address] [place] [address] [place] [address] RDW SD 47.4 35.7 - 48.1 fL [facility] Comment:Testing performed by : [facility], [address] [place] [address] [place] [address] Blood specimen (specimen) 01/28/2018 2:32 PM CDT 01/28/2018 2:43 PM CDT Narrative [facility] - 01/28/2018 2:46 PM CDT us Abbi Ventura MD LAB BLOOD ORDERABLES Final Resul t [facility] [address] [facility] Department [place] [address] documented in this encounter Visit Diagnoses Diagnosis Malignant neoplasm of colon, unspecified part of colon (HCC)- Primary Malignant neoplasm of left breast in female, estrogen receptor negative, unspecified site of breast (HCC) Malignant neoplasm of colon, unspecified part of colon (HCC) documented in this encounter Care Teams Curriculum And Assessment Coordinator Relationship Specialty Start Date End Date Ravi Smith MD PCP - General 11/04/17 09/27/21 Aft, Kianna Machado MD PhD [address] [place] [address] Surgeon Surgical Oncology 11/22/17 Santiago Gilbert MD [address] [place] [address] Motel Keeper Gastroenterology 11/22/17 documented as of this encounter
--- OUTSIDE RECORDS SUMMARY | 2024-04-24 13:52 | XMS_ITS | Encounter Summary ---
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) Procedures [id number]: (Fluorouracil / Leucovorin / Oxaliplatin) 14 Day Cycles Abbi Ventura MD [address] [place] [address] [address] [place] [address] Phone: tel: fax: [facility] [address] [place] [phone] Phone: tel: Referral ID Status Reason Start Date Expiration Date Visits Re quested Visits Authorized [id number] Closed 01/31/2018 05/05/2019 1 18 Encounter Details Date Type Department Care Team (Late st Contact Info) Description 02/24/2018 8:00 AM CDT Infusion [facility] [address] [place] [address] 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) Social History Tobacco Use Types Packs/Day Years Used Date Smoking Tobacco: Former Cigarettes 1 2015 Smokeless Tobacco: Never Alcohol Use Standard Drinks/Week Comments Yes 0 (1 standard drink = 0.6 oz pur e alcohol) socially Comments No Sex and Gender Information Value Date Recorded Sex Assigned at Not on file 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 Gender Identity Not on file Sexual Orientation Not on file documented as of this encounter Last Filed Vital Signs Vital Sign Reading Time Taken Comments Blood Pressure 148/74 02/24/2018 8:09 AM CDT Pulse 108 02/24/2018 8:09 AM CDT Temperature 36.7 ??C (98.1 ??F) 02/24/2018 8:09 AM CD T Respiratory Rate 18 02/24/2018 8:09 AM CDT Oxygen Saturation 95% 02/24/2018 8:09 AM CDT Inhaled Oxygen Concentration - - Weight 107.7 kg (237 lb 8 oz) 02/24/2018 8:09 AM CDT Height - - Body Mass Index 36.01 02/20/2018 10:38 AM CDT documented in this encounter Nursing Notes * Citlalli Iglesias - 02/24/2018 8:00 AM CDT Pt here for 5-FU push/pump hookup. Pt states she feels back to baseline after reaction to Oxali on . Discharged stable with CIVI 5-FU pump. Disconnect kit provided. 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)- Primary Malignant neoplasm of descending colon documented in this encounter Administered Medications Inactive Administered Medications - up to 3 most recent administrations Medication Order MAR Action Action Date Dose Rate Site fluorouracil (ADRUCIL) 5,550 mg in cadd cassette 111 mL infusion - for home infusion 5,550 mg (rounded from 5,568 mg = 2,400 mg/m2 ? 2.32 m2 Treatment Plan BSA from Recorded weight), intravenous, at 2.4 mL/hr, Administer over 46 Hours, over 46 hours, First dose on 02/24/18 at 1145, FOR PUMP PROBLEMS CALL [phone] IrritantIndications:Raheel russo neoplasm of descending colon (CMS/HCC) (HCC) Given 02/24/2018 8:43 AM CDT 5,550 mg 2.4 mL/hr fluorouracil (ADRUCIL) IV syringe 925 mg 18.5 mL 925 mg (rounded from 928 mg = 400 mg/m2 ? 2.32 m2 Treatment Plan BSA from Recorded weight), intravenous, Administer over 5 Minutes, Once, On 02/24/18 at 1115, For 1 dose, IrritantIndications:Raheel russo neoplasm of descending colon (CMS/HCC) (HCC) New Bag 02/24/2018 8:36 AM CDT 925 mg documented in this encounter Orders Appointment Requests Count Last Ordered Date Fi rst Ordered Date ONCBCN RETURN CHEMO 4HRS 1 02/24/2018 documented in this encounter Care Teams Air Brake Mechanic Relationship Specialty Start Date End Date Ravi Smith MD PCP - General 11/04/17 09/27/21 Aft, Kianna Machado MD PhD [address] [place] [address] Surgeon Surgical Oncology 11/22/17 Santiago Gilbert MD [address] [place] [address] Rose Grower Gastroenterology 11/22/17 documented as of this encounter
--- OUTSIDE RECORDS SUMMARY | 2024-04-24 13:52 | XMS_ITS | Encounter Summary ---
Author Organization [facility] Address [address] [place] [address] Phone Care Team Providers Care Diagnostic Tech Name Role Phone Ravi Smith MD Primary Care Provider [phone] Aft, Kianna Machado MD PhD Unavailable [phone] Santiago Gilbert MD Unavailable [phone] Reason for Visit * Reason Comments Colon Cancer * Consultation (Routine) - Closed Specialty Diagnoses / Procedures Referred By Vijaya simpson Referred To Contact Colon and Rectal Surgery Diagnoses POV-WEEKS Procedures POSTOPERATIVE VISIT Deana Smith MD Phone: tel: fax: Dmitry Sanderson MD [address] [facility] [phone] [address] [place] [address] Phone: tel: fax: Referral ID Status Reason Start Date Expiration Date Visits Re quested Visits Authorized [id number] Closed 02/06/2018 08/18/2019 1 1 Encounter Details Date Type Department Care Team (Late st Contact Info) Description 02/13/2018 1:30 PM CDT Office Visit [facility] [address] [facility] [address] [place] [id number] Dmitry Sanderson MD [address] [facility] [phone] [address] [place] [address] 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) Social History Tobacco Use Types Packs/Day Years Used Date Smoking Tobacco: Former Cigarettes 1 2015 Smokeless Tobacco: Never Alcohol Use Standard Drinks/Week Comments Yes 0 (1 standard drink = 0.6 oz pur e alcohol) socially Comments No Sex and Gender Information Value Date Recorded Sex Assigned at Not on file 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 Gender Identity Not on file Sexual Orientation Not on file documented as of this encounter Last Filed Vital Signs Vital Sign Reading Time Taken Comments Blood Pressure 136/64 02/13/2018 1:00 PM CDT Pulse 83 02/13/2018 1:00 PM CDT Temperature 36.4 ??C (97.6 ??F) 02/13/2018 1:00 PM CD T Respiratory Rate 20 02/13/2018 1:00 PM CDT Oxygen Saturation 97% 02/13/2018 1:00 PM CDT Inhaled Oxygen Concentration - - Weight 109.1 kg (240 lb 9.6 oz) 02/13/2018 1:00 PM CDT Height - - Body Mass Index 36.47 02/06/2018 10:37 AM CDT documented in this encounter Progress Notes * Dmitry Sanderson MD - 02/13/2018 1:30 PM CDT Colon & Rectal Surgery Note Patient: Aleah Gerber : 1955 SUBJECTIVE: Chief complaint of concurrent left colon and breast cancers, originally referred by Deana Smith MD HPI: Ms. Gerber is a 62 y.o. 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 Her postoperative course was unremarkable. She has subsequently undergone left partial mastectomy with sentinel lymph node biopsies for breast cancer. Overall the patient is feeling well. She has occasional constipation with infrequent bowel movements but this is not too troublesome. She has started systemic chemotherapy with FOLFOX, and notes some peripheral neuropathy in her hands as well as fatigue. Her appetite is good and she denies focal abdominal pains. 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 Review of Systems: No significant changes except as noted above. Physical exam: Vitals BP 136/64 Pulse 83 Temp 36.4 ??C (97.6 ??F) Resp 20 Wt 109.1 kg (240 lb 9.6 oz) SpO2 97% BMI 36.47 kg/m?? Appearance - well developed, well nourished Orientation - alert and oriented x 3 Eyes - anicteric Neuro - non-focal Abdomen - soft nontender nondistended. Well-healed surgical incision. Assessment & Plan: (C18.6) Malignant neoplasm of descending colon (CMS/HCC) (primary encounter diagnosis) Doing well postoperatively. 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 Patient had several appropriate questions which were answered to her satisfaction. She will follow up with me again in 6 months the, and we discussed the need for surveillance colonoscopy at 1 year. Dmitry Sanderson MD, FACS, FASCRS sales agent marine insurance Section of Colon & Rectal Surgery [facility] [phone] 02/13/2018 1:30 PM Dictated note was generated using voice-porcelain enamel laborer technology and some variance may result. 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)- Primary Malignant neoplasm of descending colon documented in this encounter Historical Medications * This list may reflect changes made after this encounter. famotidine (PEPCID) 20 mg tablet Take 20 mg by mouth 2 (two) times a day. 09/22/2018 added in this encounter Care Teams Diagnostic Tech Relationship Specialty Start Date End Date Ravi Smith MD PCP - General 11/04/17 09/27/21 Aft, Kianna Machado MD PhD [address] [place] [address] Surgeon Surgical Oncology 11/22/17 Santiago Gilbert MD [address] [place] [address] Metal Machine Operator Gastroenterology 11/22/17 documented as of this encounter
--- OUTSIDE RECORDS SUMMARY | 2024-04-24 13:52 | XMS_ITS | Encounter Summary ---
Author Organization [facility] Address [address] [place] [address] Phone Care Team Providers Care Candy Waffle Assembler Name Role Phone Ravi Smith MD Primary Care Provider [phone] Aft, Kianna Machado MD PhD Unavailable [phone] Santiago Gilbert MD Unavailable [phone] Encounter Details Date Type Department Care Team (Late st Contact Info) Description 01/29/[address] [facility] [address] [facility] [address] [place] [phone] Abbi Ventura MD [address] 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 Gender Identity Not on file Sexual Orientation Not on file documented as of this encounter Miscellaneous Notes * Addendum Note - Mag Martin MA - 01/29/2018 8:21 AM CDTAddended by: MAG MARTIN on: 03/10/2018 03:51 PM Modules accepted: Orders Y PLAN SALES UNIT SALES LEADER documented in this encounter Plan of Treatment Not on file documented as of this encounter Visit Diagnoses Diagnosis Malignant neoplasm of upper-inner quadrant of left breast in female, estrogen receptor negative (HCC) documented in this encounter Orders Lab Orders Without Results Count Last Ordered D ate First Ordered Date CBC WITH AUTO DIFFERENTIAL 1 01/29/2018 COMPREHENSIVE METABOLIC PANEL 1 01/29/2018 documented in this encounter Care Teams Candy Waffle Assembler Relationship Specialty Start Date End Date Ravi Smith MD PCP - General 11/04/17 09/27/21 Aft, Kianna Machado MD PhD [address] [place] [address] Surgeon Surgical Oncology 11/22/17 Santiago Gilbert MD [address] [place] [address] Physician Gastroenterology 11/22/17 documented as of this encounter
--- OUTSIDE RECORDS SUMMARY | 2024-04-24 13:52 | XMS_ITS | Encounter Summary ---
Author Organization [facility] Address [address] [place] [address] Phone Care Team Providers Care Chief General Pediatric Clinic Name Role Phone Ravi Smith MD Primary Care Provider [phone] Aft, Kianna Machado MD PhD Unavailable [phone] Santiago Gilbert MD Unavailable Encounter Details Date Type Department Care Team (Latest Contact Info) Description 02/21/2018 Orders Only [facility] Scanning, Provider Social History Tobacco Use Types Packs/Day Years Used Date Smoking Tobacco: Former Cigarettes 2015 Smokeless Tobacco: Never Alcohol Use Standard Drinks/Week Comments Yes 0 (1 standard drink = 0.6 oz pur e alcohol) socially Comments No Sex and Gender Information Value Date Recorded Sex Assigned at Not on file Legal 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 Gender Identity Not on file Sexual Orientation Not on file documented as of this encounter Plan of Treatment Not on file documented as of this encounter Procedures Procedure Name Priority Date/Time Associated Diagnosis Comments SCAN - RADIOLOGY/IMAGING 02/21/2018 documented in this encounter Results * SCAN - RADIOLOGY/IMAGING (02/21/2018) Anatomical Region Laterality Modality Other us Provider Scanning Edited Result - Final documented in this encounter Visit Diagnoses Not on filedocumented in this encounter Care Teams Chief General Pediatric Clinic Relationship Specialty Start Date End Date Ravi Smith MD PCP - General 11/04/17 09/27/21 Aft, Kianna Machado MD PhD [address] [place] [address] Surgeon Surgical Oncology 11/22/17 Santiago Gilbert MD [address] [place] [address] Universal Grinder Tool Gastroenterology 11/22/17 documented as of this encounter
--- OUTSIDE RECORDS SUMMARY | 2024-04-24 13:52 | XMS_ITS | Encounter Summary ---
Author Organization [facility] Address [address] [place] [address] Care Team Providers Care Blockmason Name Role Phone Ravi Smith MD Primary Care Provider [phone] Kianna Bunch MD PhD Unavailable [phone] Santiago Gilbert MD Unavailable [phone] Reason for Referral * Diagnostic Imaging (Routine) - Closed Specialty Diagnoses / Procedures Referred By Vijaya simpson Referred To Contact Diagnoses Invasive ductal carcinoma of left breast (HCC) Procedures NM Lymphoscintigraphy (Breast) Left Kianna Bunch MD PhD Phone: tel: fax: [address] [address] Referral ID Status Reason Start Date Expiration Date Visits Re quested Visits Authorized [id number] Closed 12/05/2017 06/16/2019 2 2 Reason for Visit * Diagnostic Imaging (Routine) - Closed Specialty Diagnoses / Procedures Referred By Vijaya simpson Referred To Contact Diagnoses Invasive ductal carcinoma of left breast (HCC) Procedures NM Lymphoscintigraphy (Breast) Left Kianna Bunch MD PhD Phone: tel: fax: [address] [phone] Referral ID Status Reason Start Date Expiration Date Visits Re quested Visits Authorized [id number] Closed 12/05/2017 06/16/2019 2 2 Encounter Details Date Type Department Care Team (Latest Contact Info) Description 01/14/2018 8:55 AM CDT - 01/14/2018 11:59 PM CDT Hospital Encounter [facility] [address] [place] [address] Aft, Kianna Machado MD PhD [address] [place] [address] Invasive ductal carcinoma of left breast (CMS/HCC) Discharge Disposition: Discharge to home or self care Social History Tobacco Use Types Packs/Day Years Used Date Smoking Tobacco: Former Cigarettes 2015 Smokeless Tobacco: Never Alcohol Use Standard Drinks/Week Comments Yes 0 (1 standard drink = 0.6 oz pur e alcohol) socially Comments No Sex and Gender Information Value Date Recorded Sex Assigned at Not on file 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 30 tablet 12/31/2017 8 cephalexin (KEFLEX) 500 mg capsule Take 1 capsule (500 mg total) by mouth 2 (two) times a day for 5 days. 10 capsule 01/14/2018 8 enoxaparin (LOVENOX) 40 mg/0.4 mL syringe Inject 0.4 mL (40 mg total) under the skin daily for 21 days. 8.4 mL 12/31/2017 8 bisacodyl EC (DULCOLAX EC) 5 mg EC tabletIndication s:constipation Take 1 tablet (5 mg total) by mouth 2 (two) times a day as needed for constipation. 30 tablet 01/06/2018 9 BREO ELLIPTA 100-25 mcg/dose diskus inhalerIndicatio ns:Bronchospasm Prevention with COPD Inhale every morning 1 11/22/2017 9 cholecalciferol (VITAMIN D3) 2,000 unit capsuleIndicatio ns:Osteoporosis Take 2,000 Units by mouth nightly 10/04/2017 0 ondansetron (ZOFRAN) 8 mg tablet Take 1 tablet at 11:00AM with Miralax prep. Take 1 tablet every 8 hours for nausea. 2 tablet 12/10/2017 8 polyethylene glycol (MIRALAX) 17 gram packetIndication s:constipation Take 1 packet (17 g total) by mouth 2 (two) times a day as needed (constipation). 30 packet 01/06/2018 9 psyllium 0.52 gram capsuleIndicatio ns:constipation Take 1 capsule (0.52 g total) by mouth daily. In case of constipation 30 capsule 11 12/31/2017 9 sertraline (ZOLOFT) 50 mg tabletIndication s:Anxiety with Depression nightly. 11/07/2017 8 documented as of this encounter Discharge Disposition Disposition Code Departure Means Destination Discharge to home or self care documented in this encounter Plan of Treatment Not on file documented as of this encounter Procedures Procedure Name Priority Date/Time Associated Diagnosis Comments NM LYMPHOSCINTIGRAPHY (BREAST) LEFT Schedule Routine, Read Routine (OP Routine) 01/14/2018 8:25 AM CDT Invasive ductal carcinoma of left breast (CMS/HCC) documented in this encounter Results * NM Lymphoscintigraphy (Breast) Left (01/14/2018 8:25 AM CDT) Anatomical Region Laterality Modality Breast N/A Nuclear Medicine 01/14/2018 9:38 AM CDT Impressions 01/14/2018 6:07 PM CDT Avalon node(s) identified as described above for subsequent intraoperative removal with gamma probe guidance. Electronically signed by: Eboni Robles M.D. Narrative 01/14/2018 6:07 PM CDT EXAMINATION: ??BREAST LYMPHOSCINTIGRAPHY DATE OF STUDY: 01/14/2018 RADIOPHARMACEUTICAL: ??556.14microcuries Tc-99m Tilmanocept intradermally HISTORY: 62 Year-old woman with colorectal cancer and biopsy-proven triple negative invasive ductal carcinoma of left breast. TECHNIQUE: ??The tracer was injected intradermally in the periareolar region of the left breast at the 9 o'clock position. FINDINGS: ??Images were obtained beginning at 10-15 minutes after injection in anterior and left lateral projections. ?? Intense karley uptake is seen in ?? 1 ??node located in left axilla. ?? Procedure Note Eboni Robles MD - 01/14/2018 EXAMINATION: BREAST LYMPHOSCINTIGRAPHY DATE OF STUDY: 01/14/2018 RADIOPHARMACEUTICAL: 556.14microcuries Tc-99m Tilmanocept intradermally HISTORY: 62 Year-old woman with colorectal cancer and biopsy-proven triple negative invasive ductal carcinoma of left breast. TECHNIQUE: The tracer was injected intradermally in the periareolar region of the left breast at the 9 o'clock position. FINDINGS: Images were obtained beginning at 10-15 minutes after injection in anterior and left lateral projections. Intense karley uptake is seen in 1 node located in left axilla. IMPRESSION: Avalon node(s) identified as described above for subsequent intraoperative removal with gamma probe guidance. Electronically signed by: Eboni Robles M.D. Kianna Bunch MD PhD IMG CO PROCEDURES Final Re sult documented in this encounter Visit Diagnoses Diagnosis Invasive ductal carcinoma of left breast (HCC) documented in this encounter Administered Medications Inactive Administered Medications - up to 3 most recent administrations Medication Order MAR Action Action Date Dose Rate Site tc-99m tilmanocept (lymphoseek) 0.5 mci injection 0.5 millicurie 0.5 millicurie (500 microcurie), intradermal, Once in imaging, radiopharmaceutical, Starting on Sat01/14/18 at 0801, For 1 dose Given 01/14/2018 7:55 AM CDT 0.556 millicuries documented in this encounter Orders Medications Ordered That Jefferson ht Not Have Been Administered Count Last Ordered Date First Ordered Date tc-99m tilmanocept (lymphose ek) 0.5 mci injection 0.5 millicurie 1 01/14/2018 documented in this encounter Care Teams Blockmason Relationship Specialty Start Date End Date Ravi Smith MD PCP - General 11/04/17 09/27/21 Aft, Kianna Machado MD PhD [address] [place] [address] Surgeon Surgical Oncology 11/22/17 Santiago Gilbert MD [address] [place] [address] Fig Bar Machine Operator Gastroenterology 11/22/17 documented as of this encounter
--- OUTSIDE RECORDS SUMMARY | 2024-04-24 13:52 | XMS_ITS | Encounter Summary ---
Author Organization [facility] Address [address] [place] [address] Phone Care Team Providers Care Gold Leaf Laborer Name Role Phone Ravi Smith MD Primary Care Provider [phone] Aft, Kianna Machado MD PhD Unavailable [phone] Santiago Gilbert MD Unavailable [phone] Reason for Referral * Allergy, Asthma, and Immunology (Routine) - Closed Specialty Diagnoses / Procedures Referred By Contac t Referred To Contact Diagnoses Adverse effect of drug, initial encounter Procedures Allergy skin tests drugs biol each Aldo Ramires MD PhD Phone: tel: fax: [facility] (All Locations) Referral ID Status Reason Start Date Expiration Date Visits Re quested Visits Authorized [id number] Closed 03/03/2018 04/04/2018 1 1 Reason for Visit * Allergy, Asthma, and Immunology (Routine) - Closed Specialty Diagnoses / Procedures Referred By Contac t Referred To Contact Allergy and Immunology Diagnoses oxaliplatin testing Procedures Ravi Bear MD Phone: tel: fax: Aldo Ramires MD PhD [address] [address] [place] [address] Phone: tel: fax: Referral ID Status Reason Start Date Expiration Date Visits Re quested Visits Authorized [id number] Closed 03/03/2018 09/12/2019 99 99 Encounter Details Date Type Department Care Team (Late st Contact Info) Description 03/03/2018 9:30 AM CDT Office Visit [facility] Allergy and Immunology [address] [place] [address] Aldo Ramires MD PhD [address] [address] [address] [address] [place] [address] Adverse effect of drug, initial encounter (Primary Dx) Social History Tobacco Use Types Packs/Day Years Used Date Smoking Tobacco: Former Cigarettes 2015 Smokeless Tobacco: Never Alcohol Use Standard Drinks/Week Comments Yes 0 (1 standard drink = 0.6 oz pur e alcohol) socially Comments No Sex and Gender Information Value Date Recorded Sex Assigned at Not on file 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 Gender Identity Not on file Sexual Orientation Not on file documented as of this encounter Last Filed Vital Signs Vital Sign Reading Time Taken Comments Blood Pressure 120/58 03/03/2018 10:47 AM CDT Pulse 111 03/03/2018 10:47 AM CDT Temperature 36.9 ??C (98.5 ??F) 03/03/2018 1 0:47 AM CDT Respiratory Rate - - Oxygen Saturation 96% 03/03/2018 10: 47 AM CDT Inhaled Oxygen Concentration - - Weight 106.6 kg (235 lb 1.6 oz) 018 10:47 AM CDT Height 172.7 cm (5' 8 ) 03/03/2018 10:4 7 AM CDT Body Mass Index 35.75 03/03/2018 10:47 AM CDT documented in this encounter Progress Notes * Aldo Ramires MD PhD - 03/03/2018 9:30 AM CDT Allergy/Immunology History and Physical Chief Complaint: Aleah Gerber is a 62 y.o. female with chief complaint of recent adverse reaction to chemo. History of Present Illness: She presents for testing to oxaliplatin. She was getting her 2nd round of FOLFOX and shortly after oxaliplatin administration she noted difficulty speaking during a conversation with associated sensation of tongue swelling. She also had right arm and leg numbness and weakness. She was told her facewas flushed. Her SBP was reportedly above 200. She denies chest tightness or dyspnea. No GI symptoms. She was sent to the ER and stroke workup was negative. She notes that after her first round of treatment, she had sensation of facial warmth and some lip tingling. She also had hallucinations. She notes a prior history of spontaneous urticaria, mainly associated with stress. She has no history of allergies, asthma or eczema. Past Medical History: Diagnosis Date ??? Anemia [...] ??? INGUINAL HERNIA REPAIR Right 1970 ??? TUBAL LIGATION 1991 Current Outpatient Prescriptions Medication Sig Dispense Refill ??? ALPRAZolam (XANAX) 0.25 mg tablet 3 (three) times a day as needed for anxiety. ??? amLODIPine (NORVASC) 5 mg tablet 0 ??? aspirin 81 mg chewable tablet 0 ??? atorvastatin (LIPITOR) 20 mg tablet 0 ??? BREO ELLIPTA 100-25 mcg/dose diskus inhaler Inhale every evening. 1 ??? cholecalciferol (VITAMIN D3) 2,000 unit capsule nightly. ??? dexamethasone (DECADRON) 4 mg tablet Take 1 tab on days 2-4 of chemotherapy q 2 weeks. 10 tablet 3 ??? famotidine (PEPCID) 20 mg tablet Take 20 mg by mouth 2 (two) times a day. ??? hydroCHLOROthiazide (HYDRODIURIL) 12.5 mg tablet 0 ??? lidocaine-prilocaine (EMLA) cream Apply topically as needed for pain. Apply to port 1 hour before use and cover with tape. 30 g 3 ??? ondansetron (ZOFRAN) 8 mg tablet Take 1 tablet (8 mg total) by mouth every 8 (eight) hours as needed for nausea or vomiting. . Take 1 tablet every 8 hours for nausea.prn 30 tablet 3 ??? prochlorperazine (COMPAZINE) 10 mg tablet Take 1 tablet (10 mg total) by mouth every 6 (six) hours as needed for nausea. 30 tablet 3 ??? venlafaxine XR (EFFEXOR-XR) 75 mg 24 hr capsule Take 1 capsule (75 mg total) by mouth daily. 30capsule 11 ??? bisacodyl EC (DULCOLAX EC) 5 mg EC tablet Take 1 tablet (5 mg total) by mouth 2 (two) times a day as needed for constipation. (Patient not taking: Reported on 02/13/2018 ) 30 tablet 0 ??? polyethylene glycol (MIRALAX) 17 gram packet Take 1 packet (17 g total) by mouth 2 (two) times a day as needed (constipation). (Patient not taking: Reported on 02/13/2018 ) 30 packet 0 ??? psyllium 0.52 gram capsule Take 1 capsule (0.52 g total) by mouth daily. In case of constipation (Patient not taking: Reported on 02/13/2018 ) 30 capsule 11 No current facility-administered medications for this visit. Allergies Allergen Reactions ??? Tetanus Vaccines And Toxoid Swelling and Rash Family History Problem Relation Age of Onset ??? Prostate cancer Father 60 ??? Pancreatic cancer Sister 40 ??? Liver cancer Maternal Grandmother 80 ??? Heart attack Mother 70 Review of Systems Constitutional: Positive for fatigue. HENT: Positive for voice change. Eyes: Negative. Respiratory: Negative. Cardiovascular: Negative. Gastrointestinal: Negative. Endocrine: Negative. Genitourinary: Negative. Musculoskeletal: Negative. Skin: Positive for rash. Allergic/Immunologic: Negative. Neurological: Positive for speech difficulty, weakness and numbness. Hematological: Negative. Psychiatric/Behavioral: Positive for hallucinations. Breast: Negative. Vitals BP 120/58 Pulse 111 Temp 36.9 ??C (98.5 ??F) Ht 172.7 cm (5' 8 ) Wt 106.6 kg (235 lb 1.6 oz) SpO2 96% BMI 35.75 kg/m?? Physical exam: Sitting comfortably on exam table Conjunctivae clear TMs pearly yao Nares patent with non-edematous turbinates Posterior pharynx without cobblestoning or erythema Neck supple Lungs clear to auscultation bilaterally Heart normal rate and regular rhythm, no murmurs Abdomen non-distended Extremities warm and well-perfused Skin without rashes or other lesions Lab/Radiology/Diagnostic Review: Anemia on recent CBC Skin testing was performed today with positive histamine and negative saline controls. Drug Testing Information Drug Name: Oxaliplatin Method: Intradermal Concentration: 1:10 Dose: 0.02 Wheal: n Erythema/Flare: n Reaction: n Impression: Recent adverse reaction to FOLFOX, unlikely due to IgE-mediated hypersensitivity Plan: Symptoms were not consistent with type I hypersensitivity and skin testing was negative to oxaliplatin, which together make an IgE-mediated reaction highly unlikely. From an allergy perspective, there is no need for any additional treatments, such as desensitization, prior to subsequent doses. If any further concerns arise, she will call. Follow up as needed. documented in this encounter Plan of Treatment Not on file documented as of this encounter Procedures Procedure Name Priority Date/Time Associated Diagnosis Comments ALLERGY SKIN TESTS DRUGS BIOLOGICALS, EACH Routine 03/03/2018 Adverse effect of drug, initial encounter documented in this encounter Results * Allergy skin tests drugs biol each (03/03/2018) us Aldo Bennett MD PhD IN CLINIC/BEDSIDE [facility] [place] Edited Result - Final documented in this encounter Visit Diagnoses Diagnosis Adverse effect of drug, initial encounter- Primary documented in this encounter Historical Medications * This list may reflect changes made after this encounter. hydroCHLOROthiazi de (HYDRODIURIL) 12.5 mg tabletIndications :hypertension Take 12.5 mg by mouth every morning 0 02/24/2018 08/22/2021 atorvastatin (LIPITOR) 20 mg tabletIndications :hyperlipidemia Take 20 mg by mouth nightly 0 02/21/2018 08/22/2021 aspirin 81 mg chewable tablet 0 02/21/2018 9 amLODIPine (NORVASC) 5 mg tabletIndications :hypertension Take 5 mg by mouth every morning Patient doesn't recall if takes in AM or PM 0 02/21/2018 12/01/2018 added in this encounter Care Teams Gold Leaf Laborer Relationship Specialty Start Date End Date Ravi Smith MD PCP - General 11/04/17 09/27/21 Aft, Kianna Machado MD PhD [address] [place] [address] Surgeon Surgical Oncology 11/22/17 Santiago Gilbert MD [address] [place] [address] Hoop Punch And Coiler Operator Gastroenterology 11/22/17 documented as of this encounter
--- OUTSIDE RECORDS SUMMARY | 2024-04-24 13:52 | XMS_ITS | Encounter Summary ---
Author Organization [facility] Address [address] [place] [address] Care Team Providers Care Unitizer Name Role Phone Ravi Smith MD Primary Care Provider [phone] Kianna Bunch MD PhD Unavailable [phone] Santiago Gilbert MD Unavailable Reason for Referral * Diagnostic Imaging (Routine) - Closed Specialty Diagnoses / Procedures Referred By Vijaya simpson Referred To Contact Diagnoses Invasive ductal carcinoma of left breast (HCC) Procedures Mammo Guided Localization Breast Left Kianna Bunch MD PhD Phone: tel: fax: [address] [phone] Referral ID Status Reason Start Date Expiration Date Visits Re quested Visits Authorized [id number] Closed 12/05/2017 06/16/2019 1 1 Reason for Visit * Diagnostic Imaging (Routine) - Closed Specialty Diagnoses / Procedures Referred By Vijaya simpson Referred To Contact Diagnoses Invasive ductal carcinoma of left breast (HCC) Procedures Mammo Guided Localization Breast Left Kianna Bunch MD PhD Phone: tel: fax: [address] [phone] Referral ID Status Reason Start Date Expiration Date Visits Re quested Visits Authorized [id number] Closed 12/05/2017 06/16/2019 1 1 Encounter Details Date Type Department Care Team (Latest Contact Info) Description 01/14/2018 6:28 AM CDT - 01/14/2018 11:59 PM CDT Hospital Encounter 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 Gender Identity Not on file [...] documented in this encounter Miscellaneous Notes * Pre-Procedure Note - Jin Garcia MD - 01/14/2018 8:48 AM CDT Radiology Procedure Plan Indication: 62 year old woman with biopsy proven invasive ductal carcinoma of the left breast Planned Procedure: Mammographic Guided Needle Localization of the Left Breast Cosigned by Perla Rodriguez MD at 01/14/2018 1:40 PM CDT documented in this encounter Plan of Treatment Not on file documented as of this encounter Procedures Procedure Name Priority Date/Time Associated Diagnosis Comments MAMMO GUIDED LOCALIZATION BREAST LEFT Schedule Routine, Read Routine (OP Routine) 01/14/2018 9:51 AM CDT Invasive ductal carcinoma of left breast (CMS/HCC) documented in this encounter Results * Mammo Guided Localization Breast Left (01/14/2018 9:51 AM CDT) Anatomical Region Laterality Modality Breast Left Mammography 01/14/2018 4:53 PM CDT Impressions 01/20/2018 3:47 PM CDT Successful wire localization of the area of interest within the LEFT breast using mammographic guidance. Electronically signed by: Perla Rodriguez M.D. Narrative 01/20/2018 3:47 PM CDT EXAMINATION: LEFT BREAST NEEDLE LOCALIZATION UTILIZING MAMMOGRAPHIC GUIDANCE AND A SINGLE WIRE; SURGICAL SPECIMEN RADIOGRAPH HISTORY: 8-year-old woman with invasive ductal carcinoma of the left breast. PROCEDURE AND FINDINGS: The procedure was discussed with the patient and informed consent was obtained. The breast was placed in a compression grid, and the area of interest was localized with digital mammography. ??After sterile preparation of the skin, 1% lidocaine was utilized for local anesthesia. A hook-wire system was advanced into the area of interest in the breast from a medial approach utilizing digital mammographic guidance. Orthogonal views were obtained to confirm appropriate needle/wire position. The patient tolerated the procedure well and there was no evidence of immediate complication. ??The images were marked for the surgeon, and the patient was transferred to the operating suite for surgical excision. A surgical specimen was subsequently received from the operating room and was imaged using digital radiography. ??The lesion of interest is included within the surgical specimen. These findings were communicated to the surgeon. The attending radiologist, Dr. Rodriguez, was present throughout the entire procedure. ??Dr. Bradley (breast imaging fellow) and Dr. Garcia (diagnostic radiology transcriptionist) also participated in this examination. Procedure Note Perla Rodriguez MD - 01/20/2018 EXAMINATION: LEFT BREAST NEEDLE LOCALIZATION UTILIZING MAMMOGRAPHIC GUIDANCE AND A SINGLE WIRE; SURGICAL SPECIMEN RADIOGRAPH HISTORY: 8-year-old woman with invasive ductal carcinoma of the left breast. PROCEDURE AND FINDINGS: The procedure was discussed with the patient and informed consent was obtained. The breast was placed in a compression grid, and the area of interest was localized with digital mammography. After sterile preparation of the skin, 1% lidocaine was utilized for local anesthesia. A hook-wire system was advanced into the area of interest in the breast from a medial approach utilizing digital mammographic guidance. Orthogonal views were obtained to confirm appropriate needle/wire position. The patient tolerated the procedure well and there was no evidence of immediate complication. The images were marked for the surgeon, and the patient was transferred to the operating suite for surgical excision. A surgical specimen was subsequently received from the operating room and was imaged using digital radiography. The lesion of interest is included within the surgical specimen. These findings were communicated to the surgeon. The attending radiologist, Dr. Rodriguez, was present throughout the entire procedure. Dr. Bradley (breast imaging fellow) and Dr. Garcia (diagnostic radiology transcriptionist) also participated in this examination. IMPRESSION: Successful wire localization of the area of interest within the LEFT breast using mammographic guidance. Electronically signed by: Perla Rodriguez M.D. Kianna Bunch MD PhD IMG MAMMO PROCEDURES Final Result documented in this encounter Visit Diagnoses Diagnosis Invasive ductal carcinoma of left breast (HCC) documented in this encounter Administered Medications Inactive Administered Medications - up to 3 most recent administrations Medication Order MAR Action Action Date Dose Rate Site lidocaine (XYLOCAINE) 10 mg/mL (1 %) injection Code/trauma/sedation medication, Starting on Sat01/14/18 at 0935, Intra-Procedure (IR), Indications: Administration of Local AnesthesiaIndications:Admini stration of Local Anesthesia Given 01/14/2018 9:35 AM CDT 5 mL Other (Comment) documented in this encounter Orders Medications Ordered That Jefferson ht Not Have Been Administered Count Last Ordered Date First Ordered Date lidocaine (XYLOCAINE) 10 mg/ mL (1 %) injection 1 01/14/2018 documented in this encounter Care Teams Unitizer Relationship Specialty Start Date End Date Ravi Smith MD PCP - General 11/04/17 09/27/21 Kianna Bunch MD PhD [address] [place] [address] Surgeon Surgical Oncology 11/22/17 Santiago Gilbert MD [address] [place] [address] Global Recruiter Gastroenterology 11/22/17 documented as of this encounter
--- OUTSIDE RECORDS SUMMARY | 2024-04-24 13:52 | XMS_ITS | Encounter Summary ---
Author Organization [facility] Address [address] [place] [address] Phone Care Team Providers Care Ruby Engineer Name Role Phone Ravi Smith MD Primary Care Provider [phone] Kianna Bunch MD PhD Unavailable [phone] Santiago Gilbert MD Unavailable [phone] Reason for Visit * Oncology (Routine) - Closed Specialty Diagnoses / Procedures Referred By Contronny t Referred To Contact Medical Oncology / Oncology Diagnoses Malignant neoplasm of colon, unspecified Procedures RETURN AftKianna MD PhD Phone: tel: fax: Abbi Ventura MD [address] [facility] [address] [place] [address] Phone: tel: fax: Referral ID Status Reason Start Date Expiration Date V isits Requested Visits Authorized [id number] Closed Specialty Services Required 11/26/2017 05/05/2018 99 99 Encounter Details Date Type Department Care Team (Late st Contact Info) Description 01/28/2018 3:00 PM CDT Office Visit [facility] Oncology [address] [facility] [address] [place] [id number] Abbi Ventura MD [address] [place] [address] [address] [place] [address] 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); Malignant neoplasm of upper-inner quadrant of left breast in female, 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); Malignant neoplasm of left breast in female, estrogen receptor negative, unspecified site of breast (CMS/HCC) Social History Tobacco Use Types Packs/Day Years Used Date Smoking Tobacco: Former Cigarettes 2015 Smokeless Tobacco: Never Alcohol Use Standard Drinks/Week Comments Yes 0 (1 standard drink = 0.6 oz pur e alcohol) socially Comments No Sex and Gender Information Value Date Recorded Sex Assigned at Not on file 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 Gender Identity Not on file Sexual Orientation Not on file documented as of this encounter Last Filed Vital Signs Vital Sign Reading Time Taken Comments Blood Pressure 170/74 01/28/2018 2:55 PM CDT Pulse 77 01/28/2018 2:55 PM CDT Temperature 36 ??C (96.8 ??F) 01/28/2018 2:55 PM CDT Respiratory Rate 18 01/28/2018 2:55 PM CDT Oxygen Saturation 97% 01/28/2018 2:55 PM CDT Inhaled Oxygen Concentration - - Weight 110.8 kg (244 lb 6 oz) 01/28/2018 2:55 PM CDT Height - - Body Mass Index 36.09 01/03/2018 11:42 AM CDT documented in this encounter Progress Notes * Lorenza Lr MD - 01/28/2018 3:00 PM CDT Patient Identifying Data: Aleah Gerber is a 62 y.o. female seen in followup today DIAGNOSIS: 1. 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 Mucinous adenocarcinoma of left colon pT4bN0, MSI high 3. BRCA2 positive and VUS in BRIP1 [...] of malignancy in three lymph nodes (0/3) Interval History Since her last visit, she has undergone both left hemicolectomy and left partial mastectomy with sentinel node biopsy and port placement. She reports that she is recovering from surgery, continues tohave some tenderness around the breast surgery site. Of note, she had ileus after her colectomy, but now recovered, reports that she is back to having regular bowel movements. Review of Systems Review of systems positive for symptoms as per interval history. All other review of systems negative. Objective Vitals: Vitals BP 170/74 (BP Location: Right arm) Pulse 77 Temp 36 ??C (96.8 ??F) (Temporal) Resp 18 Wt 110.8 kg (244 lb 6 oz) SpO2 97% BMI 36.09 kg/m?? ECO Physical exam: General Appearance: Alert, cooperative, no distress, appears stated age, well developed, well nourished Head: Normocephalic, without obvious abnormality, atraumatic Eyes: PERRL, conjunctiva/corneas clear, EOM's intact, both eyes, anicteric Ears: Normal TM's and external ear canals, both ears Nose: Nares normal, mucosa normal, no drainage or sinus tenderness Throat: Lips, mucosa, and tongue normal;mucous membranes moist Neck: Supple, symmetrical, trachea midline, no adenopathy; Thyroid: No enlargement/tenderness/nodules; Back: Symmetric, no curvature, ROM normal, no CVA tenderness Lungs: Clear to auscultation bilaterally, NVBS Breast: Right breast: No dominant mass; no nipple or areolar changes. Left breast: Well healed scar, No dominant mass; no nipple or areolar changes. Chest wall: No tenderness or deformity. R chest wall port in place Cardiovascular: Regular rate and rhythm, S1 and S2 normal, no murmur, rub or gallop Abdomen: Soft, non-tender, bowel sounds active all four quadrants, no masses, no organomegaly, non-distended. Well healed laporotomy scars. Extremities: Extremities normal, atraumatic, no cyanosis or edema, no clubbing Skin: Skin color, texture, turgor normal, no rashes, lesions or bruising Lymph nodes: Cervical, supraclavicular, axillary, inguinal, femoral nodes normal Neurologic: Alert & oriented x 4, CNII-XII intact. Power 5/5 in all extremities, Able to buttonshirt and do tandem walking. Detailed neuro exam not done Psychosocial: Normal affect and mood Lab/Radiology/Diagnostic Review: Hematology Lab History Some values may be hidden. Unless noted otherwise, only the newest values recorded on each date aredisplayed. Labs - Hematology Latest Ref Range 12/28/17 12/30/17 01/03/18 01/05/18 WBC 3.8 - 9.9 K/cumm 13.3 (A) 7.8 9.8 8.8 Hgb 11.9 - 15.5 g/dL 10.0 (A) 10.4 (A) 10.9 (A) 10.8 (A) Hct 35.6 - 45.5 % 31.1 (A) 32.1 (A) 32.9 (A) 33.5 (A) Plt 150 - 400 K/cumm 166 161 233 197 Neutrophils, abs 1.7 - 6.5 K/cumm 11.4 (A) 4.9 Some values recorded on this date have been omitted. Some abnormal values recorded on this date have been omitted. (A) Abnormal value Chemistry Component Value Date/Time SODIUM 142 01/05/2018 2340 POTASSIUM 3.8 01/05/2018 2340 CHLORIDE 106 01/05/2018 2340 CO2 28 01/05/2018 2340 BUNSER 7 (L) 01/05/2018 2340 CREATININE 0.96 01/05/2018 2340 GLUCOSE 125 01/05/2018 2340 Component Value Date/Time CALCIUM 9.1 01/05/2018 2340 Recent labs, radiology and pathology reviewed in EPIC ASSESSMENT: Ms. Gerber is a 62-year-old woman with a history of anxiety and depression, here for follow up medical oncology visit for her synchronous diagnosis of breast and colon cancer. She has undergone left colectomy with pathology revealing T4bN0 disease, Stage IIC colon adenocarcinoma, with loss of PMS2 and MLHI, consistent with MSI high status. There is somatic loss of expression of MLH1 and PMS2 but she does not have germline mutation. She has also undergone a lumpectomy with sentinel node biopsy, revealing a T2N0, Stage IIA breast cancer with positive margin. Silvana panelis positive for BRCA2 mutation, and VUS in BRIP1 and NBN We have explained that for her colon cancer, she has a high risk Stage II disease given the T4b disease. We are concerned given omental involvement, there is risk of omental deposits/seeding. We haveexplained that as such, we will favor adjuvant chemotherapy in her, even though she is MSI high. Adjuvant chemotherapy will include minimum of FOLFOX or CAPOX for 3 months. I have explained the side effects of FOLFOX / CAPOX including but not limited to low white cell count that can lead to life threatening infections, low hemoglobin leading to shortness of breath and fatigue, low platelet count leading to bleeding risk, hair loss, fatigue, mouth sores, lack of taste sensation, lack of appetite, nausea, vomiting, diarrhea, constipation, elevated liver enzymes, cold sensitivity, peripheral neuropathy that can be permanent in some patients, heart attack, hand foot syndrome, and allergic reactions. Pamphlets on the drugs explaining side effects in detail was given to the patient. For her breast cancer, given triple negative disease, we have also discussed that she will require adjuvant chemotherapy. She has evidence of positive margin and there is plan for re-excision. Given her BRCA2 positive disease, there is discussion for possible bilateral mastectomy. We have explainedthat if she undergoes only re-excision, she would be a candidate for adjuvant radiation therapy, however, if she undergoes mastectomy, she may not require adjuvant radiation therapy. Patient says that with all the issues in the family, she wants time to think about re-excision surgery versus bilateral mastectomy. We have explained that adjuvant chemotherapy would be in the form of Taxotere and Cytoxan given every 3 weeks for 4 cycles. I have explained the side effects of docetaxel and cytoxan, including but not limited to low white cell count that can lead to life threatening infections, low hemoglobin leading to shortness of breath and fatigue, low platelet count leading to bleeding risk, hair loss that can be permanent in some patients, fatigue, mouth sores, lack of taste sensation, lack of appetite, nausea, vomiting, diarrhea, constipation, elevated liver enzymes, cardiac dysfunctionthat can be permanent in some patients, premature menopause and infertility, peripheral neuropathy that can be permanent in some patients, heart attack, acute leukemia, myelodysplastic syndrome, and a llergic reactions. Pamphlets on the drugs explaining side effects in detail were given to the patient. Currently, it is unclear what the sequence of chemotherapy should be. We have explained in option would be to initiate adjuvant chemotherapy for her colon cancer for 3 months followed by adjuvant chemotherapy for her breast cancer, with planned breast surgery after her chemotherapy. We will plan todiscuss her case at the multi-disciplinary breast cancer meeting and also discuss her case with GI medical oncology colleagues. She is amenable to this plan. She will return to clinic next week for initiation of chemotherapy. At this time, all of her questions and concerns have been addressed. She has our number to call in the interim if any questions or concerns arises Lorenza Carreon MD ADDENDUM: We discussed her case with our GI Medical oncology colleagues as well as in the breast cancer tumorboard. At the end of the discussion the plan is to start with FOLFOX x 8 cycles and then based on neuropathy status decide on TC versus AC chemotherapy for her breast cancer. Also based on her neuropathy status, we can plan breast surgery before chemotherapy for breast cancer as this would give time for her nerves to recover from oxaliplatin before proceeding with taxotere. We will call the patient and let her know this. She is currently scheduled to RTC next week to start FOLFOX. Abbi Ventura MD Shellfish Growerbladder tier Division of Oncology Section of Medical Oncology [facility] Cosigned by Abbi Ventura MD at 02/01/2018 1:26 PM CDT Associated attestation - Abbi Ventura MD - 02/01/2018 1:26 PM CDT I have seen and examined the patient on 01/28/18. I agree with the findings and plan of care as documented in the fellow's note. Abbi Ventura MD 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)- Primary Malignant neoplasm 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, estrogen receptor negative (HCC) Malignant neoplasm of left breast in female, estrogen receptor negative, unspecified site of breast (HCC) documented in this encounter Orders Appointment Requests Count Last Ordered Date Fi rst Ordered Date ONCBCN CLINIC APPOINTMENT REQUEST 1 018 documented in this encounter Care Teams Ruby Engineer Relationship Specialty Start Date End Date Ravi Smith MD PCP - General 11/04/17 09/27/21 Aft, Kianna Machado MD PhD [address] [place] [address] Surgeon Surgical Oncology 11/22/17 Santiago Gilbert MD [address] [place] [address] Wireless Communications Engineer Gastroenterology 11/22/17 documented as of this encounter
--- OUTSIDE RECORDS SUMMARY | 2024-04-24 13:52 | XMS_ITS | Encounter Summary ---
Author Organization [facility] Address [address] [place] [address] Phone Care Team Providers Care Dairy Processing Supervisor Name Role Phone Ravi Smith MD Primary Care Provider [phone] Aft, Kianna Machado MD PhD Unavailable [phone] Santiago Gilbert MD Unavailable [phone] Reason for Visit * Episode Based Medications (Routine) - Closed Specialty Diagnoses / Procedures Referred By Contac t Referred To Contact Diagnoses Malignant neoplasm of descending colon (CMS/HCC) (HCC) Procedures mFOLFOX6: (Fluorouracil / Leucovorin / Oxaliplatin) 14 Day Cycles Abbi Ventura MD [facility] [address] [place] [address] Phone: tel: fax: [facility] Oncology [address] [place] [address] Phone: tel: Referral ID Status Reason Start Date Expiration Date Visits Re quested Visits Authorized [id number] Closed 01/31/2018 05/05/2019 1 18 Encounter Details Date Type Department Care Team (Late st Contact Info) Description 02/20/2018 10:15 AM CDT Office Visit [facility] Oncology [address] [place] [address] Abbi Ventura MD [address] [facility] [address] [place] [address] Malignant neoplasm of descending colon (CMS/HCC); Malignant [...] on file 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 Gender Identity Not on file Sexual Orientation Not on file documented as of this encounter Last Filed Vital Signs Vital Sign Reading Time Taken Comments Blood Pressure 176/79 02/20/2018 10:38 AM CDT Pulse 97 02/20/2018 10:38 AM CDT Temperature 36.6 ??C (97.9 ??F) 02/20/2018 1 0:38 AM CDT 36.6 C Respiratory Rate 18 02/20/2018 10:3 8 AM CDT Oxygen Saturation 97% 02/20/2018 10: 38 AM CDT Inhaled Oxygen Concentration - - Weight 110.9 kg (244 lb 7.8 oz) 018 10:38 AM CDT Height 173 cm (5' 8.1 ) 02/20/2018 10:3 8 AM CDT Body Mass Index 37.07 02/20/2018 10:38 AM CDT documented in this encounter Ordered Prescriptions Prescription Sig Dispense Quantity Refills Last Filled Start Date End Date venlafaxine XR (EFFEXOR-XR) 75 mg 24 hr capsule Take 1 capsule (75 mg total) by mouth daily. 30 capsule 11 02/20/2018 9 documented in this encounter Progress Notes * Abbi Ventura MD - 02/20/2018 10:15 AM CDT Patient Identifying Data: Aleah Gerber is a 62 y.o. female seen in followup today DIAGNOSIS: 1. 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 Fiksu showed no mutation in MLH 1 or [...] FOLFOX chemotherapy started on 02/06/18 Interval History C/o mild fatigue,cold sensitivity that did not affect function, mood swings and hot flashes with cycle 1 of FOLFOX chemotherapy. Admits to feeling depressed. No other complaints. Review of Systems Review of systems positive for symptoms as per interval history. All other review of systems negative. Objective Vitals: Vitals BP (!) 176/79 (BP Location: Right arm) Pulse 97 Temp 36.6 ??C (97.9 ??F) (Oral) Resp 18 Ht 173 cm (5' 8.1 ) Wt 110.9 kg (244 lb 7.8 oz) SpO2 97% BMI 37.07 kg/m?? ECO Physical exam: General Appearance: Alert, [...] walking. Detailed neuro exam not done Psychosocial: Anxious Lab/Radiology/Diagnostic Review: Hematology Lab History Some values may be hidden. Unless noted otherwise, only the newest values recorded on each date aredisplayed. Labs - Hematology Latest Ref Range 01/05/18 01/28/18 02/06/18 02/20/18 WBC 3.8 - 9.9 K/cumm 8.8 7.8 7.0 4.3 Total Hb, POC 11.9 - 15.5 g/dL 10.8 (A) 11.0 (A) 10.9 (A) 10.5 (A) Hct 35.6 - 45.5 % 33.5 (A) 34.0 (A) 33.1 (A) 31.8 (A) Plt 150 - 400 K/cumm 197 161 153 114 (A) Neutrophil abs 1.7 - 6.5 K/cumm 5.1 4.6 2.4 (A) Abnormal value Comments are available for some flowsheets but are not being displayed. Chemistry Component Value Date/Time SODIUM 143 02/20/2018 0946 POTASSIUM 3.6 02/20/2018 0946 CHLORIDE 107 02/20/2018 0946 CO2 26 02/20/2018 0946 BUNSER 11 02/20/2018 0946 CREATININE 0.85 02/20/2018 0946 GLUCOSE 243 (H) 02/20/2018 0946 Component Value Date/Time CALCIUM 8.9 02/20/2018 0946 ALKPHOS 74 02/20/2018 0946 AST 22 02/20/2018 0946 ALT 16 02/20/2018 0946 BILITOT 0.2 02/20/2018 0946 Tumor Marker History Some values may be hidden. Unless noted otherwise, only the newest values recorded on each date aredisplayed. Tumor Markers Latest Ref Range 01/28/18 02/06/18 CEA 0.1 - 5.0 ng/mL 1.59 1.4 Comments are available for some flowsheets but are not being displayed. Recent labs, radiology and pathology reviewed in [facility] ASSESSMENT: T4bN0 disease, Stage IIC colon adenocarcinoma: tolerated cycle 1 of FOLFOX well except for grade 1 fatigue and cold sensitivity. I am not sure if her hot flashes and mood swings are due to chemotherapy effect on ovary causing decreased estrogen versus due to decadron versus underlying reactive depression with diagnosis of cancer and BRCA mutation T2N0, 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 MyRisk panel is positive for BRCA2 mutation, and VUS in BRIP1 and NBN HTN: has appointment to see PCP later today PLAN: Cycle 2 FOLFOX today RTC in 2 weeks to see me before cycle 3 of FOLFOX D/C sertraline and start Venlafaxine to see if that will help depression/mood swings and hot flashes Dr. Simms, Psychologist will see patient today ADDENDUM 15 minutes after finishing Oxaliplatin chemotherapy she started having slurred speech with tongue feeling thicker. She was given benadryl and pepcid as per protocol. I examined her and she was having4+/5 power in righ upper extremity and 2/5 power in right leg. Left arm and left leg were 5/5 power. She has h/o TIA, lacunar infarct in the past. We gave her ASA STARR and called 911. She was sent byambulance to [facility] for stroke protocol. 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 Though rare, I have seen couple of patients over the years. PCP notified. Abbi Ventura MD Distribution Engineering Technologistcafeteria aide Division of Oncology Section of Medical Oncology [facility] Licensed Aircraft Maintenance Engineer completed by using M*Modal Fluency Direct speaking software, therefore, transcriptionvariances may occur. documented in this encounter Plan of Treatment Not on file documented as of this encounter Results * Comprehensive metabolic panel (03/06/2018 10:38 AM CDT) Sodium 138 135 - 145 mmol/L [facility] Potassium, pl 3.5 3.3 - 4.9 mmol/L [facility] Chloride 104 97 - 110 mmol/L [facility] CO2 25 22 - 32 mmol/L [facility] Anion gap 9 2 - 15 mmol/L [facility] BUN 22 8 - 25 mg/dL [facility] Creatinine 0.89 0.60 - 1.10 mg/dL [facility] Glucose 176 70 - 199 mg/dL [facility] Comment: Interpretive Data Fasting glucose [...] Calcium 9.2 8.5 - 10.3 mg/dL [facility] Bilirubin, total 0.4 0.1 - 1.2 mg/dL [facility] Protein, pl 6.6 6.5 - 8.5 g/dL [facility] Albumin 4.1 3.5 - 5.0 g/dL [facility] Alk phos 84 40 - 130 Units/L [facility] ALT 20 7 - 45 Units/L [facility] AST 21 10 - 45 Units/L [facility] Blood specimen (specimen) 03/06/2018 10:38 AM CDT 03/06/2018 10:39 AM CDT Narrative [facility] - 03/06/2018 11:00 AM CDT us Abbi Ventura MD LAB BLOOD ORDERABLES Final Resul t [facility] Department [place] [address] * (ABNORMAL) CBC with auto differential (03/06/2018 10:38 AM CDT) WBC 7.6 3.8 - 9.9 K/cumm [facility] Hgb 11.3(L) 11.9 - 15.5 g/dL [facility] Hct 33.4(L) 35.6 - 45.5 % [facility] Plt 107(L) 150 - 400 K/cumm [facility] MPV 9.2 9.1 - 12.3 fL [facility] RBC 3.75(L) 3.90 - 5.20 M/cumm [facility] MCV 89.1 81.3 - 96.4 fL [facility] MCH 30.1 27.1 - 33.3 pg [facility] MCHC 33.8 32.3 - 35.7 g/dL [facility] RDW CV 13.4 11.1 - 14.9 % [facility] RDW SD 43.2 35.7 - 48.1 fL [facility] NRBC abs 0.00 0.00 - 0.01 K/cumm [facility] Blood specimen (specimen) 03/06/2018 10:38 AM CDT 03/06/2018 10:39 AM CDT Narrative [facility] - 03/06/2018 10:44 AM CDT us Abbi Ventura MD LAB BLOOD ORDERABLES Final Resul t [facility] Department [place] [address] documented in this encounter Visit Diagnoses Diagnosis [...] End Da te sertraline (ZOLOFT) 50 mg tabletIndications:Anxiety with Depression nightly. Therapy completed 11/07/2017 02/20/2018 documented as of this encounter Orders Appointment Requests Count Last Ordered Date Fi rst Ordered Date ONCBCN CLINIC APPOINTMENT REQUEST 2 018 02/20/2018 ONCBCN LAB APPOINTMENT 1 03/06/2018 ONCBCN RETURN CHEMO 4HRS 2 03/06/2018 documented in this encounter Care Teams Dairy Processing Supervisor Relationship Specialty Start Date End Date Ravi Smith MD PCP - General 11/04/17 09/27/21 Aft, Kianna Machado MD PhD [address] [place] [address] Surgeon Surgical Oncology 11/22/17 Santiaog Gilbert MD [address] [facility] [place] [address] Electrical Technician Instructor Gastroenterology 11/22/17 documented as of this encounter
--- OUTSIDE RECORDS SUMMARY | 2024-04-24 13:52 | XMS_ITS | Encounter Summary ---
Author Organization [facility] Address [address] [place] [address] Phone Care Team Providers Care Pump Room Operator Name Role Phone Ravi Smith MD Primary Care Provider [phone] Kianna Bunch MD PhD Unavailable [phone] Santiago Gilbert MD Unavailable [phone] Encounter Details Date Type Department Care Team (Late st Contact Info) Description 01/17/2018 Telephone [facility] Surgery [facility] Advanced Medicine [address]th [place] [address] Kianna Bunch MD PhD [address] [place] [address] Social History Tobacco Use Types Packs/Day Years Used Date Smoking Tobacco: Former Cigarettes 2015 Smokeless Tobacco: Never Alcohol Use Standard Drinks/Week Comments Yes 0 (1 standard drink = 0.6 oz pur e alcohol) socially Comments No Sex and Gender Information Value Date Recorded Sex Assigned at Not on file 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 Gender Identity Not on file Sexual Orientation Not on file documented as of this encounter Miscellaneous Notes * Telephone Encounter - Kianna Bunch MD PhD - 01/17/2018 6:53 PM CDT Cp with results of bct, recommended re-excision, will schedule documented in this encounter Plan of Treatment Not on file documented as of this encounter Visit Diagnoses Not on filedocumented in this encounter Care Teams Pump Room Operator Relationship Specialty Start Date End Date Ravi Smith MD PCP - General 11/04/17 09/27/21 Kianna Bunch MD PhD [address] [place], [place] [id number] Surgeon Surgical Oncology 11/22/17 Santiago Gilbert MD [address] [place] [address] Bank Boss Gastroenterology 11/22/17 documented as of this encounter
--- OUTSIDE RECORDS SUMMARY | 2024-04-24 13:52 | XMS_ITS | Encounter Summary ---
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) Procedures [id number]: (Fluorouracil / Leucovorin / Oxaliplatin) 14 Day Cycles Abbi Ventura MD 10 [facility] [address] [place] [address] Phone: tel: fax: [facility] [address] [place] [address] Phone: tel: Referral ID Status Reason Start Date Expiration Date Visits Re quested Visits Authorized [id number] Closed 01/31/2018 05/05/2019 18 Encounter Details Date Type Department Care Team (Latest Contact Info) Description 02/20/2018 9:45 AM CDT Clinical Support [facility] [address] [place] [address] Malignant neoplasm of descending colon (CMS/HCC); Malignant [...] file Legal Sex Female 1:06 AM DATA ENTRY REPRESENTATIVE Gender Identity Not on file Sexual Orientation Not on file documented as of this encounter Plan of Treatment Not on file documented as of this encounter Procedures Procedure Name Priority Date/Time Associated Diagnosis Comments DIFFERENTIAL AUTO Routine 02/20/2018 9:4 6 AM CDT Malignant neoplasm of descending colon (CMS/HCC) CBC WITH AUTO DIFFERENTIAL Routine 02/20/2018 9:46 AM CDT Malignant neoplasm of descending colon (CMS/HCC) COMPREHENSIVE METABOLIC PANEL STAT 02/20/2018 9:46 AM CDT Malignant neoplasm of descending colon (CMS/HCC) documented in this encounter Results * Differential, auto (02/20/2018 9:46 AM CDT) Neutrophil abs 2.4 1.7 - 6.5 K/cumm [facility] Imm gran abs 0.0 0.0 - 0.1 K/cumm [facility] Lymphocyte abs 1.2 0.8 - 3.3 K/cumm [facility] Monocyte abs 0.4 0.2 - 0.8 K/cumm [facility] Eosinophil abs 0.2 0.0 - 0.5 K/cumm [facility] Basophil abs 0.0 0.0 - 0.1 K/cumm [facility] Neutrophil pct 56.3 % [facility] Comment: Interpretive Data Percent cell count reference ranges are not reported, since discordance with absolute values may lead to misinterpretation of CBC data. Current Interpretive Data was last revised on 2017. Imm gran pct 0.5 % [facility] Comment: Interpretive Data Percent cell count reference ranges are not reported, since discordance with absolute values may lead to misinterpretation of CBC data. Current Interpretive Data was last revised on 2017. Lymphocyte pct 28.6 % [facility] Comment: Interpretive Data Percent cell count reference ranges are not reported, since discordance with absolute values may lead to misinterpretation of CBC data. Current Interpretive Data was last revised on 2017. Monocyte pct 8.7 % [facility] Comment: Interpretive Data Percent cell count reference ranges are not reported, since discordance with absolute values may lead to misinterpretation of CBC data. Current Interpretive Data was last revised on 2017. Eosinophil pct 4.7 % [facility] Comment: Interpretive Data Percent cell count reference ranges are not reported, since discordance with absolute values may lead to misinterpretation of CBC data. Current Interpretive Data was last revised on 2017. Basophil pct 1.2 % [facility] Comment: Interpretive Data Percent cell count reference ranges are not reported, since discordance with absolute values may lead to misinterpretation of CBC data. Current Interpretive Data was last revised on 2017. Blood specimen (specimen) 02/20/2018 9:46 AM CDT 02/20/2018 9:59 AM CDT Narrative [facility] - 02/20/2018 10:04 AM CDT us Abbi Ventura MD LAB BLOOD ORDERABLES Final Resul t [facility] Department [place] [address] * (ABNORMAL) CBC with auto differential (02/20/2018 9:46 AM CDT) WBC 4.3 3.8 - 9.9 K/cumm [facility] Hgb 10.5(L) 11.9 - 15.5 g/dL [facility] Hct 31.8(L) 35.6 - 45.5 % [facility] Plt 114(L) 150 - 400 K/cumm [facility] MPV 9.4 9.1 - 12.3 fL [facility] RBC 3.49(L) 3.90 - 5.20 M/cumm [facility] MCV 91.1 81.3 - 96.4 fL [facility] MCH 30.1 27.1 - 33.3 pg [facility] MCHC 33.0 32.3 - 35.7 g/dL [facility] RDW CV 13.9 11.1 - 14.9 % [facility] RDW SD 46.4 35.7 - 48.1 fL [facility] NRBC abs 0.00 0.00 - 0.01 K/cumm [facility] Blood specimen (specimen) 02/20/2018 9:46 AM CDT 02/20/2018 9:59 AM CDT Narrative [facility] - 02/20/2018 10:04 AM CDT us Abbi Ventura MD LAB BLOOD ORDERABLES Final Resul t [facility] Department [place] [address] * (ABNORMAL) Comprehensive metabolic panel (02/20/2018 9:46 AM CDT) Sodium 143 135 - 145 mmol/L [facility] Potassium, pl 3.6 3.3 - 4.9 mmol/L [facility] Chloride 107 97 - 110 mmol/L [facility] CO2 26 22 - 32 mmol/L [facility] Anion gap 10 2 - 15 mmol/L [facility] BUN 11 8 - 25 mg/dL [facility] Creatinine 0.85 0.60 - 1.10 mg/dL [facility] Glucose 243(H) 70 - 199 mg/dL [facility] Comment: Interpretive Data Fasting glucose >/= 126 [...] 2017. Calcium 8.9 8.5 - 10.3 mg/dL [facility] Bilirubin, total 0.2 0.1 - 1.2 mg/dL [facility] Protein, pl 6.5 6.5 - 8.5 g/dL [facility] Albumin 3.9 3.5 - 5.0 g/dL [facility] Alk phos 74 40 - 130 Units/L [facility] ALT 16 7 - 45 Units/L [facility] AST 22 10 - 45 Units/L [facility] Blood specimen (specimen) 02/20/2018 9:46 AM CDT 02/20/2018 9:59 AM CDT Narrative [facility] - 02/20/2018 10:24 AM CDT us Abbi Ventura MD LAB BLOOD ORDERABLES Final Resul t [facility] Department [place] [address] documented in this encounter Visit Diagnoses Diagnosis 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) Malignant neoplasm 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, estrogen receptor negative (HCC) documented in this encounter Orders Appointment Requests Count Last Ordered Date Fi rst Ordered Date ONCBCN LAB APPOINTMENT 1 02/20/2018 documented in this encounter Care Teams Military Lawyer Relationship Specialty Start Date End Date Ravi Smith MD PCP - General 11/04/17 09/27/21 Aft, Kianna Machado MD PhD [address] [place] [address] Surgeon Surgical Oncology 11/22/17 Santiago Gilbert MD [address] [place] [address] Data Entry Gastroenterology 11/22/17 documented as of this encounter
--- OUTSIDE RECORDS SUMMARY | 2024-04-24 13:52 | XMS_ITS | Encounter Summary ---
Author Organization [facility] Address [address] [place] [address] Phone Care Team Providers Care Liquor Bridge Operator Helper Name Role Phone Ravi Smith MD Primary Care Provider [phone] Aft, Kianna Machado MD PhD Unavailable [phone] Santiago Gilbert MD Unavailable [phone] Encounter Details Date Type Department Care Team (Late st Contact Info) Description 01/28/2018 2:30 PM CDT Lab [facility] 10 [facility] [address] 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 Gender Identity Not on file Sexual Orientation Not on file documented as of this encounter Plan of Treatment Not on file documented as of this encounter Procedures Procedure Name Priority Date/Time Associated Diagnosis Comments EGFR STAT 01/28/2018 2:32 PM CDT Malignant neoplasm of colon, unspecified part of colon (CMS/HCC) DIFFERENTIAL AUTO Routine 01/28/2018 2:3 2 PM CDT Malignant neoplasm of colon, unspecified part of colon (CMS/HCC) CBC WITH AUTO DIFFERENTIAL Routine 01/28/2018 2:32 PM CDT Malignant neoplasm of colon, unspecified part of colon (CMS/HCC) CEA Routine 01/28/2018 2:32 PM CDT Malignant neoplasm of colon, unspecified part of colon (CMS/HCC) COMPREHENSIVE METABOLIC PANEL STAT 01/28/2018 2:32 PM CDT Malignant neoplasm of colon, unspecified part of colon (CMS/HCC) documented in this encounter Results * eGFR (01/28/2018 2:32 PM CDT) eGFR >60 mL/min/1.7 3 m2 [facility] Comment: Interpretive Data Reference Interval Normal ?>/= 90 mL/min/1.73m2 Mildly decreased* ? 60 - 89 mL/min/1.73m2 Mildly to moderately decreased ?45 - 59 mL/min/1.73m2 Moderately to severely decreased ??30 - 44 mL/min/1.73m2 Severely decreased ?15 - 29 mL/min/1.73m2 Kidney Failure ?< 15 ??mL/min/1.73m2 *Relative to young adult level If -Kittitian multiply value by 1.16. Estimated glomerular filtration rate is determined by [...] 70. Current interpretive data was last reviewed 2015. Blood specimen (specimen) 01/28/2018 2:32 PM CDT 01/28/2018 2:53 PM CDT Narrative [facility] - 01/28/2018 3:32 PM CDT us Abbi Ventura MD LAB BLOOD ORDERABLES Final Resul t [facility] [address] [facility] Department [place] [address] * Differential, auto (01/28/2018 2:32 PM CDT) Neutrophil abs 5.1 1.7 - 6.5 K/cumm [facility] Comment:Testing performed by : [facility], [address] [place] [address], [place] [address] Imm gran abs 0.0 0.0 - 0.1 K/cumm [facility] Comment:Testing performed by : [facility], [address] [place] [address], [place] [address] Lymphocyte abs 2.0 0.8 - 3.3 K/cumm [facility] Comment:Testing performed by : [facility], [address] [place] [address], [place] [address] Monocyte abs 0.4 0.2 - 0.8 K/cumm [facility] Comment:Testing performed by : [facility], [address] [place] [address] Eosinophil abs 0.3 0.0 - 0.5 K/cumm [facility] Comment:Testing performed by : [facility], [address] [place] [address], [place] [address] Basophil abs 0.0 0.0 - 0.1 K/cumm [facility] Comment:Testing performed by : [facility], [address] [place] [address], [place] [address] Neutrophil pct 64.9 % [facility] Comment: Interpretive Data Percent cell count reference ranges are not reported, since discordance with absolute values may lead to misinterpretation of CBC data. Current Interpretive Data was last revised on 2017. Testing performed by: [facility], [address] [place] [address] [place] [address] Imm gran pct 0.5 % [facility] Comment: Interpretive Data Percent cell count reference ranges are not reported, since discordance with absolute values may lead to misinterpretation of CBC data. Current Interpretive Data was last revised on 2017. Testing performed by: [facility], [address] [place] [address], [place] [address] Lymphocyte pct 25.0 % [facility] Comment: Interpretive Data Percent cell count reference ranges are not reported, since discordance with absolute values may lead to misinterpretation of CBC data. Current Interpretive Data was last revised on 2017. Testing performed by: [facility], [address] [place] [address], [place] [address] Monocyte pct 5.7 % [facility] Comment: Interpretive Data Percent cell count reference ranges are not reported, since discordance with absolute values may lead to misinterpretation of CBC data. Current Interpretive Data was last revised on 2017. Testing performed by: [facility], [address] [place] [address], [place], [place] [address] Eosinophil pct 3.3 % [facility] Comment: Interpretive Data Percent cell count reference ranges are not reported, since discordance with absolute values may lead to misinterpretation of CBC data. Current Interpretive Data was last revised on 2017. Testing performed by: [facility], [address] [place] [address], [place] [address] Basophil pct 0.6 % [facility] Comment: Interpretive Data Percent cell count reference ranges are not reported, since discordance with absolute values may lead to misinterpretation of CBC data. Current Interpretive Data was last revised on 2017. Testing performed by: [facility], [address] [place] [address], [place], [place] [address] Blood specimen (specimen) 01/28/2018 2:32 PM CDT 01/28/2018 2:43 PM CDT Narrative [facility] - 01/28/2018 2:46 PM CDT us Abbi Lorenzo MD LAB BLOOD ORDERABLES Final Resul t Performing Organization Address [facility] Co de Phone Number [facility] [address] [facility] [place] [address] * CEA (01/28/2018 2:32 PM CDT) Pathologist [facility] CEA 1.59 0.10 - 5.00 ng/mL [facility] Comment: Interpretive Data Reference Range: Non-Smokers: < or = 3.0 ng/mL Some Smokers may have elevated levels, usually < 5.0 ng/mL On July 31, 2016 new Chemistry Instrumentation was implemented. ??If you have any questions, please contact the Laboratory at [phone]. Testing performed by: [facility], [address] [place] [address]., [address] Blood specimen (specimen) 01/28/2018 2:32 PM CDT 01/28/2018 6:12 PM CDT Narrative [facility] - 01/28/2018 6:52 PM CDT Abbi Ventura MD LAB BLOOD ORDERABLES Final Resul t Performing Organization Address [facility] Co de Phone Number [facility] [address] [facility] Department [place] [address] * Comprehensive metabolic panel (01/28/2018 2:32 PM CDT) Pathologist [facility] Sodium 142 135 - 145 mmol/L [facility] Potassium, pl 3.9 3.3 - 4.9 mmol/L [facility] Chloride 108 97 - 110 mmol/L [facility] CO2 23 22 - 32 mmol/L [facility] Anion gap 11 2 - 15 mmol/L [facility] BUN 14 8 - 25 mg/dL [facility] Creatinine 0.80 0.60 - 1.10 mg/dL [facility] Glucose 130 70 - 199 mg/dL [facility] Comment: Interpretive Data Fasting glucose >/= [...] PM CDT 01/28/2018 2:53 PM CDT [facility]ative [facility] - 01/28/2018 3:32 PM CDT us Abbi Ventura MD LAB BLOOD ORDERABLES Final Resul t [facility] [address] [facility]. Department [place] [address] * (ABNORMAL) CBC with auto differential (01/28/2018 2:32 PM CDT) WBC 7.8 3.8 - 9.9 K/cumm [facility] Comment:Testing performed by : [facility], [address] [place] [address] Hgb 11.0(L) 11.9 - 15.5 g/dL [facility] Comment:Testing performed by : [facility], [address] [place] [address] Hct 34.0(L) 35.6 - 45.5 % [facility] Comment:Testing performed by : [facility], [address] [place] [address] [place] [address] Plt 161 150 - 400 K/cumm [facility] Comment:Testing performed by : [facility], [address] [place] [address] [place] [address] MPV 10.1 9.1 - 12.3 fL [facility] Comment:Testing performed by : [facility], [address] [place] [address] [place] [address] RBC 3.66(L) 3.90 - 5.20 M/cumm [facility] Comment:Testing performed by : [facility], [address] [place] [address] [place] [address] MCV 93 81 - 96 fL [facility] Comment:Testing performed by : [facility], [address] [place] [address] [place] [address] MCH 30.1 27.1 - 33.3 pg [facility] Comment:Testing performed by : [facility], [address] [place] [address] [place] [address] MCHC 32.4 32.3 - 35.7 g/dL [facility] Comment:Testing performed by : [facility], [address] [place] [address] [place] [address] RDW CV 13.9 11.1 - 14.9 % [facility] Comment:Testing performed by : [facility], [address] [place] [address] [place] [address] RDW SD 47.4 35.7 - 48.1 fL [facility] Comment:Testing performed by : [facility], [address] [place] [address] [place] [address] Blood specimen (specimen) 01/28/2018 2:32 PM CDT 01/28/2018 2:43 PM CDT Narrative [facility] - 01/28/2018 2:46 PM CDT us Abbi Ventura MD LAB BLOOD ORDERABLES Final Resul t [facility] [address] [facility] Department [place] [address] documented in this encounter Visit Diagnoses Diagnosis Malignant neoplasm of left breast in female, estrogen receptor negative, unspecified site of breast (HCC) Malignant neoplasm of colon, unspecified part of colon (HCC) documented in this encounter Orders Appointment Requests Count Last Ordered Date Fi rst Ordered Date ONCBCN LAB APPOINTMENT 1 01/28/2018 documented in this encounter Care Teams Liquor Bridge Operator Helper Relationship Specialty Start Date End Date Ravi Smith MD PCP - General 11/04/17 09/27/21 Aft, Kianna Machado MD PhD [address] [place] [address] Surgeon Surgical Oncology 11/22/17 Santiago Gilbert MD [address] [place] [address] Infrastructure Architect Gastroenterology 11/22/17 documented as of this encounter
--- OUTSIDE RECORDS SUMMARY | 2024-04-24 13:52 | XMS_ITS | Encounter Summary ---
Author Organization [facility] Address [address] [place] [address] Phone Care Team Providers Care Mechanic Driver Name Role Phone Ravi Smith MD Primary Care Provider [phone] Aft, Kianna Machado MD PhD Unavailable [phone] Santiago Gilbert MD Unavailable [phone] Encounter Details Date Type Department Care Team (Late st Contact Info) Description 02/24/2018 Orders Only [facility] Oncology [address] [place] [address] Abbi Ventura MD 10 [facility] [address] [place] [address] Malignant neoplasm of descending colon (CMS/HCC) (Primary [...] file Legal Sex Female 1: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 Gender Identity Not on file Sexual Orientation Not on file documented as of this encounter Plan of Treatment Not on file documented as of this encounter Visit Diagnoses Diagnosis 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
--- OUTSIDE RECORDS SUMMARY | 2024-04-24 13:52 | XMS_ITS | Encounter Summary ---
Author Organization [facility] Address [address] [place] [address] Phone Care Team Providers Care Clinical Science Liaison Name Role Phone Ravi Smith MD Primary Care Provider [phone] Aft, Kianna Machado MD PhD Unavailable [phone] Santiago Gilbert MD Unavailable [phone] Encounter Details Date Type Department Care Team (Late st Contact Info) Description 02/21/2018 Telephone [facility] [address] [place] [id number] Jade May, RN Social History Tobacco Use Types Packs/Day Years Used Date Smoking Tobacco: Former Cigarettes 2015 Smokeless Tobacco: Never Alcohol Use Standard Drinks/Week Comments Yes 0 (1 standard drink = 0.6 oz pur e alcohol) socially Comments No Sex and Gender Information Value Date Recorded Sex Assigned at Not on file 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 Pt was taken to [facility] and is undergoing the stroke protocol. She stated that her head CT was not revealing of a stroke, but that they are going to be doing an MRI and ECHO today. She also asked about the 5FU pump today if she could still get it. I informed her we should wait until this acute issue isresolved first. She stated that the patient's symptoms that she was having yesterday have essentially resolved at this point. She asked if it could have been related to the Oxaliplatin. I explained it is definitely a possiblity, but that we wanted to rule out a TIA or stroke. Will discuss with Dr. Ventura and figure out plan once patient discharged. documented in this encounter Plan of Treatment Not on file documented as of this encounter Visit Diagnoses Not on filedocumented in this encounter Care Teams Clinical Science Liaison Relationship Specialty Start Date End Date Ravi Smith MD PCP - General 11/04/17 09/27/21 Aft, Kianna Machado MD PhD [address] [place] [address] Surgeon Surgical Oncology 11/22/17 Santiago Gilbert MD [address] [place] [address] Ship Manager Gastroenterology 11/22/17 documented as of this encounter
--- OUTSIDE RECORDS SUMMARY | 2024-04-24 13:52 | XMS_ITS | Encounter Summary ---
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) Procedures [id number]: (Fluorouracil / Leucovorin / Oxaliplatin) 14 Day Cycles Abbi Ventura MD [address] [place] [address] [address] [place] [address] Phone: tel: fax: [facility] Oncology [address] [place] [address] Phone: tel: Referral ID Status Reason Start Date Expiration Date Visits Re quested Visits Authorized [id number] Closed 01/31/2018 05/05/2019 1 18 Encounter Details Date Type Department Care Team (Late st Contact Info) Description 02/20/2018 11:15 AM CDT Infusion [facility] Oncology [address] [place] [address] 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); Malignant neoplasm of upper-inner quadrant of left breast in female, 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); Need for immunization against influenza Social History Tobacco Use Types Packs/Day Years Used Date Smoking Tobacco: Former Cigarettes 2015 Smokeless Tobacco: Never Alcohol Use Standard Drinks/Week Comments Yes 0 (1 standard drink = 0.6 oz pur e alcohol) socially Comments No Sex and Gender Information Value Date Recorded Sex Assigned at Not on file Legal Sex Female 1:06 AM OPERATIONS AGENT Gender Identity Not on file Sexual Orientation Not on file documented as of this encounter Last Filed Vital Signs Vital Sign Reading Time Taken Comments Blood Pressure 191/98 02/20/2018 3:00 PM CDT Pulse 70 02/20/2018 3:00 PM CDT Temperature - - Respiratory Rate 18 02/20/2018 3:00 PM CDT Oxygen Saturation 95% 02/20/2018 3:00 PM CDT Inhaled Oxygen Concentration - - Weight - - Height - - Body Mass Index - - documented in this encounter Nursing Notes * Janette Taylor - 02/20/2018 11:15 AM CDT Pt came in with no complaints for treatment today. Pt received Leucovorin, Oxaliplatin for full duration. Pt requested to see Dr. Simms, the psychologist today. Dr Simms made it over at last few minutes of treatment. Pt put on a flush while they talked for 15 mins. 15 minutes after infusions ended, pt started complaining of swollen tongue and slurred speech. Pt then could not life up her right arm or leg. Pt had facial twitching. Nurse then administered 25 mg IV Benadryl per reaction protocol. Then proceeded to give 20 mg pepcid per protocol. Dr. Ventura came to access, and requested we callEMS, pt blood pressure elevated, no pain in head, still right sided weakness. EMS took pt to [facility]. Pt will call team tomorrow to inquire about 5FU hookup and push. Dr. Ventura had drugs held until further notice. Drugs returned back to pharmacy. 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)- Primary Malignant neoplasm 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, estrogen receptor negative (HCC) Need for immunization against influenza Need for prophylactic vaccination and inoculation against influenza documented in this encounter Administered Medications Inactive Administered Medications - up to 3 most recent administrations Medication Order MAR Action Action Date Dose Rate Site aspirin tablet 324 mg 324 mg, oral, Once, On Bonnie 02/20/18 at 1715, For 1 dose, Only give a 81 mg ASA STAT for S/S STROKE 02/20/18, Indications: Only give a 81 mg ASA STAT for S/S STROKE 02/20/18Indications:Only give a 81 mg ASA STAT for S/S STROKE 02/20/18 Given 02/20/2018 3:25 PM CDT 81 mg dexamethasone (DECADRON) 10 mg in sodium chloride 0.9% 50 mL IVPB 10 mg, intravenous, at 153 mL/hr, Administer over 20 Minutes, Once, On Bonnie 02/20/18 at 1200, For 1 doseIndications: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 May repeat x1 if symptoms not relieved in 15 minutes. 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 May repeat x1 if symptoms not relieved in 15 minutes. 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 2.32 m2 Treatment Plan BSA from Recorded weight), intravenous, at 134.3 mL/hr, Administer over 2 Hours, Once, On Bonnie 02/20/18 at 1230, For 1 dose, Run concurrently with oxaliplatin. Do not exceed rate of 160 mg/min. 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 2.32 m2 Treatment Plan BSA from Recorded weight), intravenous, at 144.5 mL/hr, Administer over 2 Hours, Once, On [facility] 02/20/18 at 1230, For 1 dose, Run concurrently with leucovorin. Use D5W as back up fluid during oxaliplatin, and flush line with D5W before and after oxaliplatin infusion Irritant wih vesicant potential. 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) Given 02/20/2018 11:33 AM CDT 250 mcg documented in this encounter Orders Medications Ordered That Jefferson ht Not Have Been Administered Count Last Ordered Date First Ordered Date fluorouracil (ADRUCIL) 5,550 mg in cadd cassette 111 mL infusion - for home infusion 1 02/20/2018 fluorouracil (ADRUCIL) IV sy ringe 925 mg 18.5 mL 1 02/20/2018 Immunization/Injection Count Last Ordered Date First Ordered Date FLU VACCINE MDCK QUAD PF 4Y+ IM - FLUCELVAX 1 02/20/2018 Nursing Count Last Ordered Date First Orde red Date ONC NURSING COMMUNICATION NEUROPATHY 1 02/03 ONCBCN TREATMENT PARAMETERS 2 1 02/20/2018 Appointment Requests Count Last Ordered Date Fi rst Ordered Date ONCBCN RETURN CHEMO 4HRS 1 02/20/2018 documented in this encounter Care Teams Machinery Engineer Relationship Specialty Start Date End Date Ravi Smith MD PCP - General 11/04/17 09/27/21 Aft, Kianna Machado MD PhD [address] [place] [address] Surgeon Surgical Oncology 11/22/17 Santiago Gilbert MD [address] [place] [address] Delivery Of Shopping News Gastroenterology 11/22/17 documented as of this encounter
--- OUTSIDE RECORDS SUMMARY | 2024-04-24 13:52 | XMS_ITS | Encounter Summary ---
Author Organization [facility] Address [address] [place] [address] Phone Care Team Providers Care Varnish Melter Helper Name Role Phone Ravi Smith MD Primary Care Provider [phone] Aft, Kianna Machado MD PhD Unavailable [phone] Santiago Gilbert MD Unavailable [phone] Encounter Details Date Type Department Care Team (Late st Contact Info) Description 01/21/2018 Telephone [facility] Oncology [address] [place] [address] Rosalba Jones RN Social History Tobacco Use Types Packs/Day Years Used Date Smoking Tobacco: Former Cigarettes 2015 Smokeless Tobacco: Never Alcohol Use Standard Drinks/Week Comments Yes 0 (1 standard drink = 0.6 oz pur e alcohol) socially Comments No Sex and Gender Information Value Date Recorded Sex Assigned at Not on file Legal Sex Female 1:06 AM [employer]ATMAN Gender Identity Not on file Sexual Orientation Not on file documented as of this encounter Miscellaneous Notes * Telephone Encounter - Rosalba Jones RN - 01/21/2018 12:45 PM CDT Spoke to Nat in path and braf molecular ordered on Aleah's colon specimen documented in this encounter Plan of Treatment Not on file documented as of this encounter Visit Diagnoses Not on filedocumented in this encounter Care Teams Varnish Melter Helper Relationship Specialty Start Date End Date Ravi Smith MD PCP - General 11/04/17 09/27/21 Aft, Kianna Machado MD PhD [address] [place] [address] Surgeon Surgical Oncology 11/22/17 Santiago Gilbert MD [address] [place] [address] Tree Inspector Gastroenterology 11/22/17 documented as of this encounter
--- OUTSIDE RECORDS SUMMARY | 2024-04-24 13:52 | XMS_ITS | Encounter Summary ---
Author Organization [facility] Address [address] [place] [address] Phone Care Team Providers Care High School Band Director Name Role Phone Ravi Smith MD Primary Care Provider [phone] Aft, Kianna Machado MD PhD Unavailable [phone] Santiago Gilbert MD Unavailable [phone] Encounter Details Date Type Department Care Team (Late st Contact Info) Description 02/24/2018 Orders Only [facility] Oncology [address] [place] [address] Abbi Ventura MD [address] 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
--- OUTSIDE RECORDS SUMMARY | 2024-04-24 13:52 | XMS_ITS | Encounter Summary ---
Author Organization [facility] Address [address] [place] [address] Phone Care Team Providers Care Museum Informatics Specialist Name Role Phone Ravi Smith MD Primary Care Provider [phone] Aft, Kianna Machado MD PhD Unavailable [phone] Santiago Gilbert MD Unavailable [phone] Encounter Details Date Type Department Care Team (Latest Contact Info) Description 02/06/2018 9:00 AM CDT Clinical Support [facility] Oncology [address] [place] [address] Abbi Ventura MD [address] [place] [address] [address] [place] [address] Malignant neoplasm of descending colon (CMS/HCC) Discharge [...] on file Legal Sex Female 1:06 AM DISPLAY MANAGER Gender Identity Not on file Sexual Orientation Not on file documented as of this encounter Discharge Disposition Disposition Code Departure Means Destination Discharge to home or self care documented in this encounter Plan of Treatment Not on file documented as of this encounter Procedures Procedure Name Priority Date/Time Associated Diagnosis Comments SPECIMEN TRACKING Routine Gen Lab 04/23/2018 2:3 0 PM DISPLAY MANAGER DIFFERENTIAL AUTO Routine 02/06/2018 9:3 0 AM CDT Malignant neoplasm of descending colon (CMS/HCC) CBC WITH AUTO DIFFERENTIAL Routine 02/06/2018 9:30 AM CDT Malignant neoplasm of descending colon (CMS/HCC) PHOSPHORUS Routine 02/06/2018 9:30 AM CDT Malignant neoplasm of descending colon (CMS/HCC) MAGNESIUM Routine 02/06/2018 9:30 AM CDT Malignant neoplasm of descending colon (CMS/HCC) CEA Routine 02/06/2018 9:30 AM CDT Malignant neoplasm of descending colon (CMS/HCC) COMPREHENSIVE METABOLIC PANEL STAT 02/06/2018 9:30 AM CDT Malignant neoplasm of descending colon (CMS/HCC) documented in this encounter Results * Specimen tracking (04/23/2018 2:30 PM DISPLAY MANAGER) Specimen Blood [facility] Comment: 1 lg didier sent to [employer] with 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 Spoke to Marlene at molecular. Specimen sent to Molecular Lab [facility] Date sent [id number] [facility] Other 04/23/2018 2:30 PM DISPLAY MANAGER 04/23/2018 2:50 PM DISPLAY MANAGER Narrative [facility] - 04/23/2018 2:52 PM DISPLAY MANAGER us Abbi Ventura MD LAB BLOOD ORDERABLES Final Resul t [facility] Department [place] [address] * Differential, auto (02/06/2018 9:30 AM CDT) Neutrophil abs 4.6 1.7 - 6.5 K/cumm [facility] Imm gran abs 0.0 0.0 - 0.1 K/cumm [facility] Lymphocyte abs 1.7 0.8 - 3.3 K/cumm [facility] Monocyte abs 0.4 0.2 - 0.8 K/cumm [facility] Eosinophil abs 0.3 0.0 - 0.5 K/cumm [facility] Basophil abs 0.1 0.0 - 0.1 K/cumm [facility] Neutrophil pct 64.9 % [facility] Comment: Interpretive Data Percent cell count reference ranges are not reported, since discordance with absolute values may lead to misinterpretation of CBC data. Current Interpretive Data was last revised on 2017. Imm gran pct 0.6 % [facility] Comment: Interpretive Data Percent cell count reference ranges are not reported, since discordance with absolute values may lead to misinterpretation of CBC data. Current Interpretive Data was last revised on 2017. Lymphocyte pct 24.1 % [facility] Comment: Interpretive Data Percent cell count reference ranges are not reported, since discordance with absolute values may lead to misinterpretation of CBC data. Current Interpretive Data was last revised on 2017. Monocyte pct 5.8 % [facility] Comment: Interpretive Data Percent cell count reference ranges are not reported, since discordance with absolute values may lead to misinterpretation of CBC data. Current Interpretive Data was last revised on 2017. Eosinophil pct 3.7 % [facility] Comment: Interpretive Data Percent cell count reference ranges are not reported, since discordance with absolute values may lead to misinterpretation of CBC data. Current Interpretive Data was last revised on 2017. Basophil pct 0.9 % [facility] Comment: Interpretive Data Percent cell count reference ranges are not reported, since discordance with absolute values may lead to misinterpretation of CBC data. Current Interpretive Data was last revised on 2017. Blood specimen (specimen) 02/06/2018 9:30 AM CDT 02/06/2018 9:32 AM CDT Narrative [facility] - 02/06/2018 9:36 AM CDT us Abbi Ventura MD LAB BLOOD ORDERABLES Final Resul t Performing Organization Address [facility] [place] [address] * Phosphorus (02/06/2018 9:30 AM CDT) Phosphorus, pl 2.7 2.3 - 4.5 mg/dL [facility] Blood specimen (specimen) 02/06/2018 9:30 AM CDT 02/06/2018 9:32 AM CDT Narrative [facility] - 02/06/2018 9:57 AM CDT Abbi Ventura MD LAB BLOOD ORDERABLES Final Resul t Performing Organization Address [facility] [place] [address] * Magnesium (02/06/2018 9:30 AM CDT) [facility] Magnesium 1.9 1.4 - 2.5 mg/dL [facility] Blood specimen (specimen) 02/06/2018 9:30 AM CDT 02/06/2018 9:32 AM CDT Narrative [facility] - 02/06/2018 9:57 AM CDT Abbi Ventura MD LAB BLOOD ORDERABLES Final Resul t Performing Organization Address [facility] [place] [address] * CEA (02/06/2018 9:30 AM CDT) Pathologist [facility] CEA 1.4 0.1 - 5.0 ng/mL [facility] Comment: Interpretive Data: Reference Range: ? Non-Smokers: ??0.1 - 5.0 ng/mL ? Smokers: ?0.1 - 6.5 ng/mL ?? This test was developed and its performance characteristics determined by the [facility] in a manner consistent with CLIA requirements. This test has not been cleared or approved by the U.S. Food and Drug Administration. Current interpretive data was last revised 2015. Blood specimen (specimen) 02/06/2018 9:30 AM CDT 02/06/2018 10:37 AM CDT [address]arrative [facility] - 02/06/2018 11:13 AM CDT us Abbi Ventura MD LAB BLOOD ORDERABLES Final Resul t [facility] Department [place] [address] * (ABNORMAL) Comprehensive metabolic panel (02/06/2018 9:30 AM CDT) Sodium 141 135 - 145 mmol/L [facility] Potassium, pl 3.9 3.3 - 4.9 mmol/L [facility] Chloride 106 97 - 110 mmol/L [facility] CO2 24 22 - 32 mmol/L [facility] Anion gap 11 2 - 15 mmol/L [facility] BUN 14 8 - 25 mg/dL [facility] Creatinine 0.83 0.60 - 1.10 mg/dL [facility] Glucose 170 70 - 199 mg/dL [facility] [...] 2017. Calcium 9.0 8.5 - 10.3 mg/dL [facility] Bilirubin, total 0.4 0.1 - 1.2 mg/dL [facility] Protein, pl 6.4(L) 6.5 - 8.5 g/dL [facility] Albumin 4.0 3.5 - 5.0 g/dL [facility] Alk phos 66 40 - 130 Units/L [facility] ALT 13 7 - 45 Units/L [facility] AST 19 10 - 45 Units/L [facility] Blood specimen (specimen) 02/06/2018 9:30 AM CDT 02/06/2018 9:32 AM CDT Narrative [facility] - 02/06/2018 9:57 AM CDT us Abbi Ventura MD LAB BLOOD ORDERABLES Final Resul t [facility] Department [place] [address] * (ABNORMAL) CBC with auto differential (02/06/2018 9:30 AM CDT) [facility] WBC 7.0 3.8 - 9.9 K/cumm [facility] Hgb 10.9(L) 11.9 - 15.5 g/dL [facility] Hct 33.1(L) 35.6 - 45.5 % [facility] Plt 153 150 - 400 K/cumm [facility] MPV 10.2 9.1 - 12.3 fL [facility] RBC 3.58(L) 3.90 - 5.20 M/cumm [facility] MCV 92.5 81.3 - 96.4 fL [facility] MCH 30.4 27.1 - 33.3 pg [facility] MCHC 32.9 32.3 - 35.7 g/dL [facility] RDW CV 14.1 11.1 - 14.9 % [facility] RDW SD 47.8 35.7 - 48.1 fL [facility] NRBC abs 0.00 0.00 - 0.01 K/cumm [facility] Blood specimen (specimen) 02/06/2018 9:30 AM CDT 02/06/2018 9:32 AM CDT Narrative [facility] - 02/06/2018 9:36 AM CDT us Abbi Ventura MD LAB BLOOD ORDERABLES Final Resul t 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
--- OUTSIDE RECORDS SUMMARY | 2024-04-24 13:52 | XMS_ITS | Encounter Summary ---
Author Organization [facility] Address [address] [place] [address] Phone Care Team Providers Care Guitar Maker Name Role Phone Ravi Smith MD Primary Care Provider [phone] Aft, Kianna Machado MD PhD Unavailable [phone] Santiago Gilbert MD Unavailable [phone] Encounter Details Date Type Department Care Team (Late st Contact Info) Description 02/06/2018 9:30 AM CDT Office Visit [facility] Oncology [address] [place] [address] Abbi Ventura MD [address] [address] [place] [address] Malignant neoplasm of descending colon (CMS/HCC) (Primary [...] file Legal Sex Female 1:06 AM 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 Gender Identity Not on file Sexual Orientation Not on file documented as of this encounter Last Filed Vital Signs Vital Sign Reading Time Taken Comments Blood Pressure 165/81 02/06/2018 10:01 AM CDT Pulse 75 02/06/2018 10:01 AM CDT Temperature 36.6 ??C (97.9 ??F) 02/06/2018 1 0:01 AM CDT Respiratory Rate 16 02/06/2018 10:0 1 AM CDT Oxygen Saturation 96% 02/06/2018 10: 01 AM CDT Inhaled Oxygen Concentration - - Weight 111.7 kg (246 lb 2.3 oz) 018 10:01 AM CDT Height 175.3 cm (5' 9 ) 02/06/2018 10:0 1 AM CDT Body Mass Index 36.35 02/06/2018 10:01 AM CDT documented in this encounter Progress Notes * Abbi Ventura MD - 02/06/2018 9:30 AM CDT Patient Identifying Data: Aleah Gerber [...] chemotherapy started on 02/06/18 Interval History Patient is here with her friend to start chemotherapy. Anxious about starting chemotherapy. Has occasional twinges of pain in left axilla. Review of Systems Review of systems positive for symptoms as per interval history. All other review of systems negative. Objective Vitals: Vitals BP 165/81 (BP Location: Right arm) Pulse 75 Temp 36.6 ??C (97.9 ??F) (Oral) Resp 16 Ht 175.3 cm (5' 9 ) Wt 111.7 kg (246 lb 2.3 oz) SpO2 96% BMI 36.35 kg/m?? ECO Physical exam: General Appearance: Alert, [...] aredisplayed. Labs - Hematology Latest Ref Range 01/03/18 01/05/18 01/28/18 02/06/18 WBC 3.8 - 9.9 K/cumm 9.8 8.8 7.8 7.0 Hemoglobin,POC 11.9 - 15.5 g/dL 10.9 (A) 10.8 (A) 11.0 (A) 10.9 (A) Hct 35.6 - 45.5 % 32.9 (A) 33.5 (A) 34.0 (A) 33.1 (A) Plt 150 - 400 K/cumm 233 197 161 153 Neutrophil abs 1.7 - 6.5 K/cumm 5.1 4.6 (A) Abnormal value Comments are available for some flowsheets but are not being displayed. Chemistry Component Value Date/Time SODIUM 141 02/06/2018929 POTASSIUM 3.9 02/06/2018929 CHLORIDE 106 02/06/2018929 CO2 24 02/06/2018929 BUNSER 14 02/06/2018929 CREATININE 0.83 02/06/2018929 GLUCOSE 170 02/06/2018929 Component Value Date/Time CALCIUM 9.0 02/06/2018929 ALKPHOS 66 02/06/2018929 AST 19 02/06/2018929 ALT 13 02/06/2018929 BILITOT 0.4 02/06/2018929 Tumor Marker History Some values may be hidden. Unless noted otherwise, only the newest values recorded on each date aredisplayed. Tumor Markers Latest Ref Range 01/28/18 02/06/18 CEA 0.1 - 5.0 ng/mL 1.59 1.4 Comments are available for some flowsheets but are not being displayed. Recent labs, radiology and pathology reviewed in EPIC ASSESSMENT: T4bN0 disease, Stage IIC colon adenocarcinoma, with loss of PMS2 and MLHI, consistent with MSI highstatus. There is somatic loss of expression of MLH1 and PMS2 but she does not have germline mutation. 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 [facility] panel is positive for BRCA2 mutation, and VUS in BRIP1 and NBN PLAN: I once again reviewed the plan as outlined after discussing patient with my GI and Breast cancer colleagues. I also reviewed side effects of FOLFOX with patient Start FOLFOX today RTC in 2 weeks to see me before cycle 2 of FOLFOX Abbi Ventura MD [facility] Division of Oncology Section of Medical Oncology [facility] documented in this encounter Plan of Treatment Not on file documented as of this encounter Results * (ABNORMAL) Comprehensive metabolic panel (02/20/2018 9:46 AM CDT) Sodium 143 135 - 145 mmol/L [facility] Potassium, pl 3.6 3.3 - 4.9 mmol/L [facility] Chloride 107 97 - 110 mmol/L [facility] CO2 26 22 - 32 mmol/L [facility] Anion gap 10 2 - 15 mmol/L [facility] BUN 11 8 - 25 mg/dL [facility] Creatinine 0.85 0.60 - 1.10 mg/dL [facility] Glucose 243(H) 70 - 199 mg/dL [facility] Comment: Interpretive Data Fasting glucose [...] 2017. Calcium 8.9 8.5 - 10.3 mg/dL [facility] Bilirubin, total 0.2 0.1 - 1.2 mg/dL [facility] Protein, pl 6.5 6.5 - 8.5 g/dL [facility] Albumin 3.9 3.5 - 5.0 g/dL [facility] Alk phos 74 40 - 130 Units/L [facility] ALT 16 7 - 45 Units/L [facility] AST 22 10 - 45 Units/L [facility] Blood specimen (specimen) 02/20/2018 9:46 AM CDT 02/20/2018 9:59 AM CDT Narrative [facility] - 02/20/2018 10:24 AM CDT us Abbi Ventura MD LAB BLOOD ORDERABLES Final Resul t [facility] Department of Laboratories [place], [place] [id number] * (ABNORMAL) CBC with auto differential (02/20/2018 9:46 AM CDT) Pathologist [facility] WBC 4.3 3.8 - 9.9 K/cumm [facility] Hgb 10.5(L) 11.9 - 15.5 g/dL [facility] Hct 31.8(L) 35.6 - 45.5 % [facility] Plt 114(L) 150 - 400 K/cumm [facility] MPV 9.4 9.1 - 12.3 fL [facility] RBC 3.49(L) 3.90 - 5.20 M/cumm [facility] MCV 91.1 81.3 - 96.4 fL [facility] MCH 30.1 27.1 - 33.3 pg [facility] MCHC 33.0 32.3 - 35.7 g/dL [facility] RDW CV 13.9 11.1 - 14.9 % [facility] RDW SD 46.4 35.7 - 48.1 fL [facility] NRBC abs 0.00 0.00 - 0.01 K/cumm [facility] Blood specimen (specimen) 02/20/2018 9:46 AM CDT 02/20/2018 9:59 AM CDT Narrative [facility] - 02/20/2018 10:04 AM CDT Abbi Ventura MD LAB BLOOD ORDERABLES Final Resul t Performing Organization Address City/[facility]/ZIP Co de Phone Number [facility] [place] [address] * Phosphorus (02/06/2018 9:30 AM CDT) [facility] Phosphorus, pl 2.7 2.3 - 4.5 mg/dL [facility] Blood specimen (specimen) 02/06/2018 9:30 AM CDT 02/06/2018 9:32 AM CDT Narrative [facility] - 02/06/2018 9:57 AM CDT Abbi Ventura MD LAB BLOOD ORDERABLES Final Resul t [facility] [place] [address] * Magnesium (02/06/2018 9:30 AM CDT) Pathologist [facility] Magnesium 1.9 1.4 - 2.5 mg/dL [facility] Blood specimen (specimen) 02/06/2018 9:30 AM CDT 02/06/2018 9:32 AM CDT Narrative [facility] - 02/06/2018 9:57 AM CDT Abbi Ventura MD LAB BLOOD ORDERABLES Final Resul t Performing Organization Address [facility] de Phone Number [facility] Department [place] [address] * CEA (02/06/2018 9:30 AM CDT) [facility] CEA 1.4 0.1 - 5.0 ng/mL [facility] Comment: Interpretive Data: Reference Range: ? Non-Smokers: ??0.1 - 5.0 ng/mL ? Smokers: ?0.1 - 6.5 ng/mL ?? This test was developed and its performance characteristics determined by the [facility] in a manner consistent with CLIA requirements. This test has not been cleared or approved by the U.S. Food and Drug Administration. Current interpretive data was last revised 2015. Blood specimen (specimen) 02/06/2018 9:30 AM CDT 02/06/2018 10:37 AM CDT Narrative [facility] - 02/06/2018 11:13 AM CDT Abbi Ventura MD LAB BLOOD ORDERABLES Final Resul t Performing Organization Address [facility] de Phone Number [facility] [place] [address] * (ABNORMAL) Comprehensive metabolic panel (02/06/2018 9:30 AM CDT) [facility] Sodium 141 135 - 145 mmol/L [facility] Potassium, pl 3.9 3.3 - 4.9 mmol/L [facility] Chloride 106 97 - 110 mmol/L [facility] CO2 24 22 - 32 mmol/L [facility] Anion gap 11 2 - 15 mmol/L [facility] BUN 14 8 - 25 mg/dL [facility] Creatinine 0.83 0.60 - 1.10 mg/dL [facility] Glucose 170 70 - 199 mg/dL [facility] Comment: Interpretive Data Fasting glucose [...] 2017. Calcium 9.0 8.5 - 10.3 mg/dL [facility] Bilirubin, total 0.4 0.1 - 1.2 mg/dL [facility] Protein, pl 6.4(L) 6.5 - 8.5 g/dL [facility] Albumin 4.0 3.5 - 5.0 g/dL [facility] Alk phos 66 40 - 130 Units/L [facility] ALT 13 7 - 45 Units/L [facility] AST 19 10 - 45 Units/L [facility] Blood specimen (specimen) 02/06/2018 9:30 AM CDT 02/06/2018 9:32 AM CDT Narrative [facility] - 02/06/2018 9:57 AM CDT us Abbi Ventura MD LAB BLOOD ORDERABLES Final Resul t [facility] Department [place] [address] * (ABNORMAL) CBC with auto differential (02/06/2018 9:30 AM CDT) WBC 7.0 3.8 - 9.9 K/cumm [facility] Hgb 10.9(L) 11.9 - 15.5 g/dL [facility] Hct 33.1(L) 35.6 - 45.5 % [facility] Plt 153 150 - 400 K/cumm [facility] MPV 10.2 9.1 - 12.3 fL [facility] RBC 3.58(L) 3.90 - 5.20 M/cumm [facility] MCV 92.5 81.3 - 96.4 fL [facility] MCH 30.4 27.1 - 33.3 pg [facility] MCHC 32.9 32.3 - 35.7 g/dL [facility] RDW CV 14.1 11.1 - 14.9 % [facility] RDW SD 47.8 35.7 - 48.1 fL [facility] NRBC abs 0.00 0.00 - 0.01 K/cumm [facility] Blood specimen (specimen) 02/06/2018 9:30 AM CDT 02/06/2018 9:32 AM CDT Narrative [facility] - 02/06/2018 9:36 AM CDT us Abbi Ventura MD LAB BLOOD ORDERABLES Final Resul t [facility] Department [place] [address] documented in this encounter Visit Diagnoses Diagnosis [...] Date ONCBCN CLINIC APPOINTMENT REQUEST 1 018 ONCBCN LAB APPOINTMENT 1 02/20/2018 ONCBCN RETURN CHEMO 4HRS 1 02/20/2018 documented in this encounter Care Teams Guitar Maker Relationship Specialty Start Date End Date Ravi Smith MD PCP - General 11/04/17 09/27/21 Aft, Kianna Machado MD PhD [address] [place] [address] Surgeon Surgical Oncology 11/22/17 Santiago Gilbert MD [address] [place] [address] Cableman Gastroenterology 11/22/17 documented as of this encounter
--- OUTSIDE RECORDS SUMMARY | 2024-04-24 13:52 | XMS_ITS | Encounter Summary ---
Author Organization [facility] Address [address] [place] [address] Phone Care Team Providers Care Patient Case Coordinator Name Role Phone Ravi Smith MD Primary Care Provider [phone] Aft, Kianna Machado MD PhD Unavailable [phone] Santiago Gilbert MD Unavailable [phone] Reason for Visit * Reason Comments Chemotherapy * Episode Based Medications (Routine) - Closed Specialty Diagnoses / Procedures Referred By Contronny t Referred To Contact Diagnoses Malignant neoplasm of descending colon (CMS/HCC) (HCC) Procedures [id number]: (Fluorouracil / Leucovorin / Oxaliplatin) 14 Day Cycles Abbi Ventura MD [address] [place] [address] [address] [place] [address] Phone: tel: fax: [facility] Oncology [address] [place] [address] Phone: tel: Referral ID Status Reason Start Date Expiration Date Visits Re quested Visits Authorized [id number] Closed 01/31/2018 05/05/2019 1 18 Encounter Details Date Type Department Care Team (Late st Contact Info) Description 02/06/2018 10:30 AM CDT Infusion [facility] Oncology [address] [place] [address] 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) Social History Tobacco Use Types Packs/Day Years Used Date Smoking Tobacco: Former Cigarettes 1 973 - 2015 Smokeless Tobacco: Never Alcohol Use Standard Drinks/Week Comments Yes 0 (1 standard drink = 0.6 oz pur e alcohol) socially Comments No Sex and Gender Information Value Date Recorded Sex Assigned at Not on file 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 New patient teaching done with patient. Chemotherapy drug side effects explained along with how to disconnect 5-FU pump at home. Pt provided with disconnect kit. Pt watched video on disconnecting pump and patient was able to successfully demonstrate on how to deaccess port. Pt tolerated treatment well. Discharged in stable condition. documented in this [...] Administer over 20 Minutes, Once, On Bonnie 02/06/18 at 1200, For 1 doseIndications:Malignant neoplasm of descending colon (CMS/HCC) (HCC) New Bag 02/06/2018 11:29 AM CDT 10 mg 153 mL/hr dextrose 5% infusion 30 mL/hr, intravenous, Continuous, Starting on Bonnie 10/4/18 at 1200, 30 mL/hr while oxaliplatin is infusing Flush line with 10 - 20 mL before and after oxaliplatin infusionIndications:Maligna nt neoplasm of descending colon (CMS/HCC) (HCC) New Bag 02/06/2018 11:28 AM CDT 30 mL/hr 30 mL/hr fluorouracil (ADRUCIL) 5,550 mg in cadd cassette 111 mL infusion - for home infusion 5,550 mg (rounded from 5,568 mg = 2,400 mg/m2 ? 2.32 m2 Treatment Plan BSA from Recorded weight), intravenous, at 2.4 mL/hr, Administer over 46 Hours, over 46 hours, First dose on Bonnie 02/06/18 at 1500, FOR PUMP PROBLEMS CALL [phone] IrritantIndications:Malig nant neoplasm of descending colon (CMS/HCC) (HCC) Given 02/06/2018 2:14 PM CDT 5,550 mg 2.4 mL/hr fluorouracil (ADRUCIL) IV syringe 925 mg 18.5 mL 925 mg (rounded from 928 mg = 400 mg/m2 ? 2.32 m2 Treatment Plan BSA from Recorded weight), intravenous, Administer over 5 Minutes, Once, On Bonnie 02/06/18 at 1430, For 1 dose, IrritantIndications:Malig nant neoplasm of descending colon (CMS/HCC) (HCC) New Bag 02/06/2018 2:05 PM CDT 925 mg fosaprepitant (EMEND) 150 mg in sodium chloride 0.9% 150 mL IVPB 150 mg, intravenous, at 450 mL/hr, Administer over 20 Minutes, Once, On Bonnie 02/06/18 at 1200, For 1 doseIndications:Malignant neoplasm of descending colon (CMS/HCC) (HCC) New Bag 02/06/2018 11:31 AM CDT 150 mg 450 mL/hr leucovorin 925 mg in dextrose 5% 250 mL IVPB 925 mg (rounded from 928 mg = 400 mg/m2 ? 2.32 m2 Treatment Plan BSA from Recorded weight), intravenous, at 134.3 mL/hr, Administer over 2 Hours, Once, On Bonnie 02/06/18 at 1230, For 1 dose, Run concurrently with oxaliplatin. Do not exceed rate of 160 mg/min. 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) New Bag 02/06/2018 11:57 AM CDT 925 mg 134.3 mL/hr oxaliplatin (ELOXATIN) 195 mg in dextrose 5% 250 mL IVPB 195 mg (rounded from 197.2 mg = 85 mg/m2 ? 2.32 m2 Treatment Plan BSA from Recorded weight), intravenous, at 144.5 mL/hr, Administer over 2 Hours, Once, On Bonnie 02/06/18 at 1230, For 1 dose, Run concurrently with leucovorin. Use D5W as back up fluid during oxaliplatin, and flush line with D5W before and after oxaliplatin infusion Irritant wih vesicant potential. Flush line with [id number]:Malignant neoplasm of descending colon (CMS/HCC) (HCC) New Bag 02/06/2018 11:57 AM CDT 195 mg 144.5 mL/hr palonosetron injection 250 mcg 250 mcg (0.25 mg), intravenous, Once, On Bonnie 02/06/18 at 1200, For 1 doseIndications:Malignant neoplasm of descending colon (CMS/HCC) (HCC) Given 02/06/2018 11:29 AM CDT 250 mcg documented in this encounter Orders Nursing Count Last Ordered Date First Orde red Date ONC NURSING COMMUNICATION NEUROPATHY 1 08/2017 ONCBCN CLINICAL PHARMACIST REVIEW 1 018 ONCBCN TREATMENT PARAMETERS 2 1 02/06/2018 documented in this encounter Care Teams Patient Case Coordinator Relationship Specialty Start Date End Date Ravi Smith MD PCP - General 11/04/17 09/27/21 Aft, Kianna Machado MD PhD [address] [place] [address] Surgeon Surgical Oncology 11/22/17 Santiago Gilbert MD [address] [place] [address] Referral Agent Gastroenterology 11/22/17 documented as of this encounter
--- OUTSIDE RECORDS SUMMARY | 2024-04-24 13:52 | XMS_ITS | Encounter Summary ---
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 us Not In File Miscellaneous IMG NM PROCEDURES Bethanie l Result [facility] documented in this encounter Visit Diagnoses Not on filedocumented in this encounter Care Teams Snack Bar Attendant Relationship Specialty Start Date End Date Ravi Smith MD PCP - General 11/04/17 09/27/21 Aft, Kianna Machado MD PhD [address] [place] [address] Surgeon Surgical Oncology 11/22/17 Santiago Gilbert MD [address] [place] [address] Dinkey Engineer Gastroenterology 11/22/17 documented as of this encounter
--- OUTSIDE RECORDS SUMMARY | 2024-04-24 13:52 | XMS_ITS | Encounter Summary ---
Author Organization [facility] Address [address] [place] [address] Phone Care Team Providers Care Apparel Manager Name Role Phone Ravi Smith MD Primary Care Provider [phone] Aft, Kianna Machado MD PhD Unavailable [phone] Santiago Gilbert MD Unavailable [phone] Encounter Details Date Type Department Care Team (Late st Contact Info) Description 02/25/2018 Telephone [facility] Oncology [address] [place] [address] Cat Ryder Social History Tobacco Use Types Packs/Day Years Used Date Smoking Tobacco: Former Cigarettes 2015 Smokeless Tobacco: Never Alcohol Use Standard Drinks/Week Comments Yes 0 (1 standard drink = 0.6 oz pur e alcohol) socially Comments No Sex and Gender Information Value Date Recorded Sex Assigned at Not on file 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 Simms on 03/06/18. * Telephone Encounter - Cat Ryder - 02/25/2018 10:22 AM CDT ----- Message from Jade May sent at 02/20/2018 11:03 AM CDT ----- Regarding: f/u and make sure she has an appt with Dr. Simms Referral made on 02/20 for anxiety related to cancer documented in this encounter Plan of Treatment Not on file documented as of this encounter Visit Diagnoses Not on filedocumented in this encounter Care Teams Apparel Manager Relationship Specialty Start Date End Date Ravi Smith MD PCP - General 11/04/17 09/27/21 Aft, Kianna Machado MD PhD [address] [place] [address] Surgeon Surgical Oncology 11/22/17 Santiago Gilbert MD [address] [place] [address] Telegraph Office Telephone Clerk Gastroenterology 11/22/17 documented as of this encounter
--- OUTSIDE RECORDS SUMMARY | 2024-04-24 13:53 | XMS_ITS | Encounter Summary ---
Author Organization [facility] Address [address] [place] [address] Phone Care Team Providers Care Merchant Tailor Name Role Phone Ravi Smith MD Primary Care Provider [phone] Aft, Kianna Machado MD PhD Unavailable [phone] Santiago Gilbert MD Unavailable [phone] Encounter Details Date Type Department Care Team (Late st Contact Info) Description 12/23/2017 Telephone [facility] Oncology [address] [facility] [address] [place] [address] Shruti Tang Social History Tobacco Use Types Packs/Day Years Used Date Smoking Tobacco: Former Cigarettes 2015 Smokeless Tobacco: Never Alcohol Use Standard Drinks/Week Comments No 0 (1 standard drink = 0.6 oz pur e alcohol) socially Comments No Sex and Gender Information Value Date Recorded Sex Assigned at Not on file 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 documented in this encounter Plan of Treatment Not on file documented as of this encounter Visit Diagnoses Not on filedocumented in this encounter Care Teams Merchant Tailor Relationship Specialty Start Date End Date Ravi Smith MD PCP - General 11/04/17 09/27/21 Aft, Kianna Machado MD PhD [address] [place] [address] Surgeon Surgical Oncology 11/22/17 Santiago Gilbert MD [address] [place] [address] Product Owner Gastroenterology 11/22/17 documented as of this encounter
--- OUTSIDE RECORDS SUMMARY | 2024-04-24 13:53 | XMS_ITS | Encounter Summary ---
Author Organization [facility] Healthcare Address [address] [place] [address] Care Team Providers Care Division Chief Name Role Phone Ravi Smith MD Primary Care Provider [phone] Aft, Kianna Machado MD PhD Unavailable [phone] Santiago Gilbert MD Unavailable [phone] Encounter Details Date Type Department Care Team (Latest Contact Info) Description 01/03/2018 10:22 AM CDT - 01/06/2018 3:05 PM CDT Hospital Encounter [facility] [address] [place] [address] Dmitry Sanderson MD [address] [facility] [place] [phone] [place] [address] Discharge Disposition: Discharge to home or self care Social History Tobacco Use Types Packs/Day Years Used Date Smoking Tobacco: Former Cigarettes 1 2015 Smokeless Tobacco: Never Alcohol Use Standard Drinks/Week Comments No 0 (1 standard drink = 0.6 oz pur e alcohol) socially Comments No Sex and Gender Information Value Date Recorded Sex Assigned at Not on file 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 Gender Identity Not on file Sexual Orientation Not on file documented as of this encounter Last Filed Vital Signs Vital Sign Reading Time Taken Comments Blood Pressure 151/78 01/06/2018 11:50 AM CDT Pulse 57 01/06/2018 11:50 AM CDT Temperature 37 ??C (98.6 ??F) 01/06/2018 11:50 AM CDT Respiratory Rate 18 01/06/2018 11:50 AM CDT Oxygen Saturation 97% 01/06/2018 11:50 AM CDT Inhaled Oxygen Concentration - - Weight 113.4 kg (250 lb) 01/03/2018 11:42 AM CDT Height 175.3 cm (5' 9 ) 01/03/2018 11:42 AM CDT Body Mass Index 36.92 01/03/2018 11:42 AM CDT documented in this encounter Discharge Summaries * Jennifer Overton MD - 01/06/2018 12:39 PM CDT Inpatient Discharge Summary BRIEF OVERVIEW Admitting Provider: Dmitry Sanderson MD Discharge Provider: Dmitry Sanderson MD Primary Care Physician at Discharge: Ravi Smith MD [phone] Admission Date: 01/03/2018 Discharge Date: 01/06/2018 Admission Location: [facility] Primary Discharge Diagnosis: Ileus Secondary Discharge Diagnosis: No Active Problems: There are no active problems currently on the Problem List. Please update the Problem List and refresh. * No resolved hospital problems. * DETAILS OF HOSPITAL STAY Presenting Problem/History of Present Illness: Ileus Hospital Course: Ms. Aleah Gerber is a 62 year old female who underwent left hemicolectomy on 12/27/17 and was discharged on 12/31/17. She presented to the [facility] ED on 01/03/18 with abdominal pain, nausea and emesis, and obstipation, concerning for ileus. She was admitted to the hospital afebrile and in hemodynamically stable condition. She was placed on a bowel regimen of scheduled miralax and dulcolax. She received a suppository, and subsequently demonstrated return of bowel function. Her diet was advanced to a regular low fiber diet, which she tolerated without difficulty. K and Mg were replaced to optimize risk factors that perpetuate ileus. A CT scan obtained prior to discharge demonstrated large stool burden, but no signs of obstruction. She was discharged on hospital day 3 afebrile, hemodynamically stable, demonstrating return of bowel function, tolerating a diet, with good pain control. Anticipatory guidance on indications to return to care were reviewed prior to discharge. Active Issues Requiring Follow-up: none Test Results Pending at Discharge: none Operative Procedures Performed: none Other Procedures: none Pertinent Test Results: none Discharge Details Physical Exam at Discharge: Discharge Condition: good Pulse: 57 Resp: 18 BP: 151/78 Temp: 37 ??C (98.6 ??F) Weight: 113.4 kg (250 lb) Pertinent Exam Findings at Discharge: General appearance: appears stated age, cooperative and no distress Head: Normocephalic, without obvious abnormality, atraumatic Eyes: conjunctivae/corneas clear. PERRL, EOMs intact Lungs: NWB Heart: non tachycardic Abdomen: Soft, NT, distension improved from previous. Abdomen compressible. Incisions c/d/i without warmth, erythema or drainage Extremities: extremities normal, warm and well-perfused Pulses: 2+ and symmetric Neurologic: Alert and oriented x4, non-focal Discharge Disposition: Discharge to home or self care Code Status at Discharge: full code Discharge Instructions: Activity Instructions Discharge Activity: Driving restrictions -Do not drive while taking pain medications. Discharge Activity: Lifting restrictions -Do NOT lift greater than 10 pounds for 3-5 weeks. Diet Instructions Adult Discharge Diet Diet Type: Other (specify) Explanatory Comment: Low fiber Other Instructions Call provider for: increased temperature -Temperature greater than 101 degrees F Call provider for: nausea, vomiting, diarrhea -If you have persistent nausea, vomiting or diarrhea that does not stop Call provider for: redness, tenderness, or signs of infection (pain, swelling, redness, odor or green/yellow discharge around incision site) Call provider for: severe uncontrolled pain Call provider for: any other concerns or questions Call provider if: you feel dizzy, very tired or like you may faint Discharge Medications: Your medication list START taking these medications bisacodyl EC 5 mg EC tablet Commonly known as: DULCOLAX EC Take 1 tablet (5 mg total) by mouth 2 (two) times a day as needed for constipation. polyethylene glycol 17 gram packet Commonly known as: MIRALAX Take 1 packet (17 g total) by mouth 2 (two) times a day as needed (constipation). CONTINUE taking these medications acetaminophen 325 mg tablet Commonly known as: TYLENOL Take 2 tablets (650 mg total) by mouth every 6 (six) hours as needed for pain. ALPRAZolam 0.25 mg tablet Commonly known as: XANAX BREO ELLIPTA 100-25 mcg/dose diskus inhaler Generic drug: fluticasone-vilanterol enoxaparin 40 mg/0.4 mL syringe Commonly known as: LOVENOX Inject 0.4 mL (40 mg total) under the skin daily for 21 days. ondansetron 8 mg tablet Commonly known as: ZOFRAN Take 1 tablet at 11:00AM with Miralax prep. Take 1 tablet every 8 hours for nausea. oxyCODONE 5 mg capsule Commonly known as: OXY-IR Take 1 capsule (5 mg total) by mouth every 6 (six) hours as needed (for pain) for up to 10 days. psyllium 0.52 gram capsule Take 1 capsule (0.52 g total) by mouth daily. In case of constipation sertraline 50 mg tablet Commonly known as: ZOLOFT VITAMIN D3 2,000 unit capsule Generic drug: cholecalciferol Outpatient Follow-Up: Future Appointments Date Time Provider Department Center 01/14/2018 8:00 AM [facility] N NM04 BJN NucMed [facility] 01/14/2018 9:30 AM [facility] BHDG3 CAM Brst Img [facility] CAM IMG 01/27/2018 3:00 PM LAB, ONC ONC LAB [facility] ONC LAB 01/27/2018 3:30 PM Abbi Ventura MD ONC [facility] Oncology Contact Information for Follow-ups Other Follow-up Next Steps: Follow up Instructions: Please return to [facility] for routine post operative follow up as scheduled - call [phone] to schedule an appointment. Questions: Instructions for follow-up: Please return to [facility] for routine post operative follow up as scheduled - call [phone] to schedule an appointment. Cosigned by Shay Vallejo MD at 01/07/2018 9:13 AM CDT documented in this encounter Medications [...] for 21 days. 8.4 mL 12/31/2017 8 oxyCODONE (OXY-IR) 5 mg capsule Take 1 capsule (5 mg total) by mouth every 6 (six) hours as needed (for pain) for up to 10 days. 40 capsule 12/31/2017 8 bisacodyl EC (DULCOLAX EC) 5 [...] 11/07/2017 8 documented as of this encounter Ordered Prescriptions Prescription Sig Dispense Quantity Refills Last Filled Start Date End Date polyethylene glycol (MIRALAX) 17 gram packetIndications: constipation Take 1 packet (17 g total) by mouth 2 (two) times a day as needed (constipatio n). 30 packet 01/06/2018 09/22/2018 bisacodyl EC (DULCOLAX EC) 5 mg EC tabletIndications: constipation Take 1 tablet (5 mg total) by mouth 2 (two) times a day as needed for constipation . 30 tablet 01/06/2018 09/22/2018 documented in this encounter Discharge Disposition Disposition Code Departure Means Destination Discharge to home or self care documented in this encounter Progress Notes * Jennifer Overton MD - 01/05/2018 6:31 AM CDT CRS Daily Progress Name: Aleah Gerber HPI: Ms. Aleah Gerber is a 62 y.o. year old s/p left hemicolectomy on 11/26/17, readmitted on 01/03/18 w/ ileus. Length of Hospitalization: 2 Post Procedure Day: * No surgery found * SUBJECTIVE/ INTERVAL HISTORY - NAEO - AF, VSS - + flatus, no bowel movement (on miralax for bowel reg) - distension increased from previous - poor appetite, no subsequent episodes of nausea or emesis Objective General appearance: appears stated age, cooperative and no distress Head: Normocephalic, without obvious abnormality, atraumatic Eyes: conjunctivae/corneas clear. PERRL, EOMs intact Lungs: NWB Heart: non tachycardic Abdomen: Soft, NT, Distended, however abdomen still compressible. Incisions c/d/i without warmth, erythema or drainage Extremities: extremities normal, warm and well-perfused Pulses: 2+ and symmetric Neurologic: Alert and oriented x4, non-focal Physical Exam Current Facility-Administered Medications: ??? dextrose 5% and Lactated Ringer's infusion, 100 mL/hr, intravenous, Continuous, Last Rate: 100 mL/hr at 01/05/18 0123, 100 mL/hr at 01/05/18 0123 ??? enoxaparin (LOVENOX) syringe 40 mg, 40 mg, subcutaneous, Daily-2100, 40 mg at 01/04/181941 ??? ondansetron ODT (ZOFRAN-ODT) disintegrating tablet 4 mg, 4 mg, oral, QID PRN, 4 mg at 01/04/182225 ??? polyethylene glycol (MIRALAX) packet 17 g, 17 g, oral, BID, 17 g at 01/04/18 162 ??? sertraline (ZOLOFT) tablet 50 mg, 50 mg, oral, Nightly, 50 mg at 01/04/182221 ??? sodium chloride 0.9% flush 0.5-20 mL, 0.5-20 mL, intra-catheter, Q8H ARIC, 10 mL at 01/03/18 1237 ??? sodium chloride 0.9% flush 0.5-20 mL, 0.5-20 mL, intra-catheter, PRN Lab/Radiology/Diagnostic Review: Laboratory review: Lab results in the last 24 hours: No results found for this or any previous visit (from the past 24 hour(s)). XR Abdomen Ap 1 Vw Final Result A single view of the abdomen is submitted for evaluation. The lung bases are outside the field of view. Surgical anastomotic sutures are seen in the left hemiabdomen. The bowel gas pattern is normal. Electronically signed by: Slaav Bush Jr., M.D. Vitals: 24hr Min/Max: Temp Min: 36.7 ??C (98.1 ??F) Max: 37 ??C (98.6 ??F) Pulse Min: 53 Max: 65 BP Min: 120/54 Max: 152/66 Resp Min: 16 Max: 18 SpO2 Min: 98 % Max: 98 % Most Recent: Vitals: 01/05/18 0415 BP: 143/65 Pulse: 55 Resp: 16 Temp: 36.8 ??C (98.2 ??F) SpO2: 98% I/O last 2 completed shifts: In: 2515 [P.O.:450; I.V.:2064] Out: 350 [Urine:350] I/O this shift: In: 2730 [P.O.:400; I.V.:2330] Out: 550 [Urine:550] Assessment/Plan Ms Gerber is a 62y/o female s/p L hemicolectomy on 12/27/17, presenting with ileus - Suppository x1 miralax and dulcolax standing - Regular diet - Possible CT A/P w contrast if no ROBF - encourage oob, ambulation, IS use - home medications - k>4, mg>2 Ppx: scds, lovenox Dispo: pending ROBF Jennifer Overton MD Cosigned by Shay Vallejo MD at 01/05/2018 3:40 PM CDT * Kj Puga MD - 01/04/2018 2:12 PM CDT CRS Daily Progress Name: Aleah Gerber HPI: Ms. Aleah Gerber is a 62 y.o. year old admitted for Length of Hospitalization: 1 Post Procedure Day: * No surgery found * SUBJECTIVE/ INTERVAL HISTORY - Feeling better than yesterday - Has passed flatus - Still no appetite Objective General appearance: appears stated age, cooperative and no distress Head: Normocephalic, without obvious abnormality, atraumatic Eyes: conjunctivae/corneas clear. PERRL, EOMs intact Lungs: NWB Heart: regular rate and rhythm, S1, S2 normal, no murmur, click, rub or gallop Abdomen: Soft, NT, Distended Extremities: extremities normal, warm and well-perfused Pulses: 2+ and symmetric Neurologic: Alert and oriented x4, non-focal Physical Exam Current Facility-Administered Medications: ??? dextrose 5% and Lactated Ringer's infusion, 100 mL/hr, intravenous, Continuous, Last Rate: 100 mL/hr at 01/04/18629, 100 mL/hr at 01/04/18629 ??? enoxaparin (LOVENOX) syringe 40 mg, 40 mg, subcutaneous, Daily-2100, 40 mg at 01/03/182027 ??? ondansetron ODT (ZOFRAN-ODT) disintegrating tablet 4 mg, 4 mg, oral, QID PRN, 4 mg at 01/03/18 1930 ??? polyethylene glycol (MIRALAX) packet 17 g, 17 g, oral, BID ??? sodium chloride 0.9% flush 0.5-20 mL, 0.5-20 mL, intra-catheter, Q8H ARIC, 10 mL at 01/03/18 1237 ??? sodium chloride 0.9% flush 0.5-20 mL, 0.5-20 mL, intra-catheter, PRN Lab/Radiology/Diagnostic Review: Laboratory review: Lab results in the last 24 hours: No results found for this or any previous visit (from the past 24 hour(s)). XR Abdomen Ap 1 Vw Final Result A single view of the abdomen is submitted for evaluation. The lung bases are outside the field of view. Surgical anastomotic sutures are seen in the left hemiabdomen. The bowel gas pattern is normal. Electronically signed by: Slava Bush Jr., M.D. Vitals: 24hr Min/Max: Temp Min: 36.7 ??C (98.1 ??F) Max: 37.2 ??C (99 ??F) Pulse Min: 53 Max: 62 BP Min: 130/61 Max: 153/83 Resp Min: 18 Max: 18 SpO2 Min: 95 % Max: 97 % Most Recent: Vitals: 01/04/18 1236 BP: 130/61 Pulse: 57 Resp: 18 Temp: 36.7 ??C (98.1 ??F) SpO2: I/O last 2 completed shifts: In: 1475 [P.O.:50; I.V.:1425] Out: 550 [Urine:550] No intake/output data recorded. Assessment/Plan Ms Gerber is a 62y/o female POD 6 s/p hemicolectomy for colon cancer. Presents with c/f ileus - OOB, IS - ADAT - Miralax BID - CT if still unable to pass - Lovenox, SCD's Kj Puga MD Cosigned by Dmitry Sanderson MD at 01/07/2018 7:56 AM CDT documented in this encounter H&P Notes * Kj Puga MD - 01/03/2018 3:23 PM CDT History and Physical Subjective Patient is a 62 y.o. female with chief complaint of ileus. HPI: Ms Aleah Gerber is 62 year old female with a history of distal transverse colon cancer s/p left hemicolectomy on . The patient progressed on the colorectal pathway and was discharged of the . She returns with 2 days of nausea and vomiting. On the , she had bilious vomiting and felt nausea for the rest of the time. She also attests feeling belly fullness and obstipation. She denies fevers, chest pain, and diarrhea. Past Medical History: Diagnosis Date ??? Anemia ??? Anxiety ??? Asthma ??? Breast cancer (CMS/HCC) 2017 ??? Colon cancer (CMS/HCC) ??? Colon polyps ??? COPD (chronic obstructive pulmonary disease) (CMS/HCC) ??? Depression ??? PONV (postoperative nausea and vomiting) ??? Sleep apnea ??? TIA (transient ischemic attack) 2007 Past Surgical History: Procedure Laterality Date ??? BLADDER SUSPENSION 2010 ??? BREAST BIOPSY Left 11/12/2017 ??? BREAST BIOPSY 2008 ??? COLONOSCOPY 2017 ??? HERNIA REPAIR 1969 ??? INCONTINENCE SURGERY 2007 ??? TUBAL LIGATION 1992 Prescriptions Prior to Admission Medication Sig Dispense Refill Last Dose ??? acetaminophen (TYLENOL) 325 mg tablet Take 2 tablets (650 mg total) by mouth every 6 (six) hours as needed for pain. 30 tablet 0 Past Week at Unknown time ??? ALPRAZolam (XANAX) 0.25 mg tablet 3 (three) times a day as needed for anxiety. Past Week at Unknown time ??? BREO ELLIPTA 100-25 mcg/dose diskus inhaler Inhale every morning. 1 01/03/2018 at Unknown time ??? cholecalciferol (VITAMIN D3) 2,000 unit capsule nightly. Past Week at Unknown time ??? enoxaparin (LOVENOX) 40 mg/0.4 mL syringe Inject 0.4 mL (40 mg total) under the skin daily for 21 days. 8.4 mL 0 01/02/2018 at Unknown time ??? ondansetron (ZOFRAN) 8 mg tablet Take 1 tablet at 11:00AM with Miralax prep. Take 1 tablet every 8 hours for nausea. 2 tablet 0 Past Week at Unknown time ??? oxyCODONE (OXY-IR) 5 mg capsule Take 1 capsule (5 mg total) by mouth every 6 (six) hours as needed (for pain) for up to 10 days. 40 capsule 0 Past Week at Unknown time ??? psyllium 0.52 gram capsule Take 1 capsule (0.52 g total) by mouth daily. In case of constipation 30 capsule 11 Past Month at Unknown time ??? sertraline (ZOLOFT) 50 mg tablet nightly. 01/02/2018 at Unknown time Allergies Allergen Reactions ??? Tetanus Vaccines And Toxoid Swelling and Rash Social History Substance Use Topics ??? Smoking status: Former Smoker Start date: 1972 Quit date: 2015 ??? Smokeless tobacco: Never Used ??? Alcohol use No Comment: socially Family History Problem Relation Age of Onset ??? Prostate cancer Father 60 ??? Pancreatic cancer Sister 40 ??? Liver cancer Maternal Grandmother 80 Review of Systems: All review of systems are negative except for N/V, fullness Review of Systems Objective Vitals: Arrival Vitals [01/03/18 1055] Temp 36.7 ??C (98.1 ??F) Pulse 62 Resp 16 BP 140/64 SpO2 95 % Temp src Oral Heart Rate Source Patient Position Sitting BP Location Right arm FiO2 (%) 24hr Min/Max: Temp Min: 36.7 ??C (98.1 ??F) Max: 36.7 ??C (98.1 ??F) Pulse Min: 62 Max: 62 BP Min: 140/64 Max: 140/64 Resp Min: 16 Max: 16 SpO2 Min: 95 % Max: 95 % Most Recent : Vitals: 01/03/18 1055 BP: 140/64 Pulse: 62 Resp: 16 Temp: 36.7 ??C (98.1 ??F) SpO2: 95% No intake/output data recorded. I/O this shift: In: 10 [I.V.:10] Out: - Physical exam: General appearance: appears stated age, cooperative, no distress and obese Head: Normocephalic, without obvious abnormality, atraumatic Eyes: conjunctivae/corneas clear. PERRL Lungs: NWB, symmetric chest rise Heart: regular rate and rhythm, S1, S2 normal, no murmur, click, rub or gallop Abdomen: distended abdomen, soft, non-tender Extremities: extremities normal, warm and well-perfused Pulses: 2+ and symmetric Skin: Skin color, texture, turgor normal. No rashes or lesions Neurologic: Alert and oriented x4, non-focal Physical Exam Lab/Radiology/Diagnostic Review: Laboratory review: Lab results in the last 24 hours: Recent Results (from the past 24 hour(s)) Basic metabolic panel Collection Time: 01/03/18 1:03 PM Result Value Ref Range Sodium 139 135 - 145 mmol/L Potassium, pl See Comment 3.3 - 4.9 mmol/L Chloride 105 97 - 110 mmol/L CO2 27 22 - 32 mmol/L Anion Gap 7 2 - 15 mmol/L BUN 12 8 - 25 mg/dL Creatinine 0.78 0.60 - 1.10 mg/dL Glucose 91 70 - 199 mg/dL Calcium 8.9 8.5 - 10.3 mg/dL CBC without differential Collection Time: 01/03/18 1:03 PM Result Value Ref Range WBC 9.8 3.8 - 9.9 K/cumm Hgb 10.9 (L) 11.9 - 15.5 g/dL Hct 32.9 (L) 35.6 - 45.5 % Plt 233 150 - 400 K/cumm MPV 11.0 9.1 - 12.3 fL RBC 3.73 (L) 3.90 - 5.20 M/cumm MCV 88.2 81.3 - 96.4 fL MCH 29.2 27.1 - 33.3 pg MCHC 33.1 32.3 - 35.7 g/dL RDW CV 13.7 11.1 - 14.9 % RDW SD 44.0 35.7 - 48.1 fL NRBC Abs 0.00 0.00 - 0.01 K/cumm Magnesium Collection Time: 01/03/18 1:03 PM Result Value Ref Range Magnesium 2.0 1.4 - 2.5 mg/dL Phosphorus Collection Time: 01/03/18 1:03 PM Result Value Ref Range Phosphorus, pl 2.6 2.3 - 4.5 mg/dL Imaging review: I have reviewed the result(s) of the KUB and it appears grossly normal Assessment /Plan Active Problems: No Active Problems: There are no active problems currently on the Problem List. Please update the Problem List and refresh. Ms. Gerber is a recently discharged female s/p left hemicolectomy who returns with an ileus. Given the post-operative course of this patient, the patient probably has an ileus. Infection or a new obstruction is less likely. - NPO - IVF - Labs - Will advance diet later Cosigned by Dmitry Sandreson MD at 01/03/2018 3:53 PM CDT Associated attestation - Dmitry Sanderson MD - 01/03/2018 3:53 PM CDT I have seen and examined the patient on 01/03/18. I agree with the findings and plan of care as documented in the resident's/fellow's note. Patient reports episodes of vague abd pain, relieved with BM, as well 1 episode of emesis 2 days ago. No focal pains and abd exam benign. KUB shows nonspecificbowel gas pattern, with gas through colon to rectum. Will monitor, IVF resus and po trial. If symptoms recur, obtain CT A/P. documented in this encounter Nursing Notes * Na Ace RN - 01/05/2018 7:50 PM CDT aware that pt is have bowel movements and that pt is up walking and tolerating fluids. Pt did not want anymore lax and aware. Pt has remained npo for CT. documented in this encounter Miscellaneous Notes * Plan of Care - Mora Sena RN - 01/06/2018 1:13 PM CDT Fluid Volume: ??? Maintenance of adequate hydration will improve Progressing ??? Will show no signs and symptoms of electrolyte imbalance Progressing Health Behavior: ??? Understanding of discharge needs will improve Progressing Lack of Knowledge: ??? Verbalization of understanding the information provided will improve Progressing Nutritional: ??? Maintenance of adequate nutrition will improve Progressing Sensory: ??? Occurrences of nausea will decrease Progressing Goals: tolerate diet, out of bed, denies nausea/vomiting Summary: Patient on a regular diet. Patient reports poor appetite but is tolerating what she eats. Patient denies nausea/vomiting. Patient up ad maria luz and tolerating ambulation well. Patient to be discharged today. * Hospital Course - Jennifer Overton MD - 01/06/2018 12:37 PM CDT Ms. Aleah Gerber is a 62 year old female who underwent left hemicolectomy on 12/27/17 and was discharged on 12/31/17. She presented to the [facility] ED on 01/03/18 with abdominal pain, nausea and emesis, and obstipation, concerning for ileus. She was admitted to the hospital afebrile and in hemodynamically stable condition. She was placed on a bowel regimen of scheduled miralax and dulcolax. She received a suppository, and subsequently demonstrated return of bowel function. Her diet was advanced to a regular low fiber diet, which she tolerated without difficulty. K and Mg were replaced to optimize risk factors that perpetuate ileus. A CT scan obtained prior to discharge demonstrated large stool burden, but no signs of obstruction. She was discharged on hospital day 3 afebrile, hemodynamically stable, demonstrating return of bowel function, tolerating a diet, with good pain control. Anticipatory guidance on indications to return to care were reviewed prior to discharge. * Plan of Care - Casandra Falk - 01/06/2018 5:24 AM CDT Fluid Volume: ??? Maintenance of adequate hydration will improve Progressing ??? Will show no signs and symptoms of electrolyte imbalance Progressing Health Behavior: ??? Understanding of discharge needs will improve Progressing Lack of Knowledge: ??? Verbalization of understanding the information provided will improve Progressing Nutritional: ??? Maintenance of adequate nutrition will improve Progressing Sensory: ??? Occurrences of nausea will decrease Progressing Goals: tolerate regular diet Summary: Patient did not complain of any nausea. Patient had 2 bowel movements,mostly watery. P * Plan of Care - Na Ace RN - 01/05/2018 7:19 AM CDT Goals: Summary: Pt resting in bed no bowel movement but passing flatus. * Plan of Care - Diana Reid RN - 01/04/2018 9:23 PM CDT Fluid Volume: ??? Maintenance of adequate hydration will improve Progressing ??? Will show no signs and symptoms of electrolyte imbalance Progressing Health Behavior: ??? Understanding of discharge needs will improve Progressing Lack of Knowledge: ??? Verbalization of understanding the information provided will improve Progressing Nutritional: ??? Maintenance of adequate nutrition will improve Progressing Sensory: ??? Occurrences of nausea will decrease Progressing Goals: Tolerate PO, ambulate, Denies pain Summary: Patient taking it easy on her regular diet. She is mostly sticking to clears. No nausea orvomiting and she is passing gas. She is ambulating frequently in her room and the hallways. Patientdenies having any pain. * Plan of Care - Na Ace RN - 01/04/2018 10:09 AM CDT Goals: Summary: Pt is up walking in [place] and pt has no voiced c/o of pain * Plan of Care - Diana Reid RN - 01/04/2018 2:41 AM CDT Fluid Volume: ??? Maintenance of adequate hydration will improve Progressing ??? Will show no signs and symptoms of electrolyte imbalance Progressing Health Behavior: ??? Understanding of discharge needs will improve Progressing Lack of Knowledge: ??? Verbalization of understanding the information provided will improve Progressing Nutritional: ??? Maintenance of adequate nutrition will improve Progressing Sensory: ??? Occurrences of nausea will decrease Progressing Goals: Tolerate PO, ambulate, Control pain Summary: Pt denies having any pain. She is tolerating her clear liquid diet. Has not ordered anything on her regular diet yet. One episode of nausea was relieved by zofran. Pt is ambulating freely inher room and the hallways. * Plan of Care - Mora Sena RN - 01/03/2018 6:00 PM CDT Fluid Volume: ??? Maintenance of adequate hydration will improve Progressing ??? Will show no signs and symptoms of electrolyte imbalance Progressing Health Behavior: ??? Understanding of discharge needs will improve Progressing Lack of Knowledge: ??? Verbalization of understanding the information provided will improve Progressing Nutritional: ??? Maintenance of adequate nutrition will improve Progressing Sensory: ??? Occurrences of nausea will decrease Progressing Goals: Patient will deny nausea/vomiting. Patient will have a bowel movement. Tolerate out of bed activity. Summary: Patient was admitted today for a post op ileus.Patient denied nausea/vomiting until 1900. At this time zofran administered. Patient advanced to clears and then a regular diet this afternoon.Patient ate half a popsicle. Patient's bowel sounds remain hypoactive. Patient up ad maria luz and tolerating activity well. documented in this encounter Plan of Treatment Not on file documented as of this encounter Procedures Procedure Name Priority Date/Time Associated Diagnosis Comments CBC WITHOUT DIFFERENTIAL Routine 01/05/2018 11:40 PM CDT BASIC METABOLIC PANEL Routine 01/05/2018 11:[address] ABDOMEN PELVIS W CONTRAST IP Routine 01/05/2018 10:20 PM CDT POTASSIUM, WHOLE BLOOD Routine 01/05/2018 6:33 AM CDT XR ABDOMEN AP 1 VIEW IP Routine 01/03/2018 1:42 PM CDT CBC WITHOUT DIFFERENTIAL Timed 01/03/2018 1:03 PM CDT PHOSPHORUS Timed 01/03/2018 1:03 PM CDT MAGNESIUM Timed 01/03/2018 1:03 PM CDT BASIC METABOLIC PANEL Timed 01/03/2018 1:03 PM CDT documented in this encounter Results * (ABNORMAL) Basic metabolic panel (01/05/2018 11:40 PM CDT) Sodium 142 135 - 145 mmol/L [facility] Potassium, pl 3.8 3.3 - 4.9 mmol/L [facility] Chloride 106 97 - 110 mmol/L [facility] CO2 28 22 - 32 mmol/L [facility] Anion gap 8 2 - 15 mmol/L [facility] BUN 7(L) 8 - 25 mg/dL [facility] Creatinine 0.96 0.60 - 1.10 mg/dL [facility] Glucose 125 70 - 199 mg/dL [facility] 2017. Calcium 9.1 8.5 - 10.3 mg/dL [facility] Blood specimen (specimen) 01/05/2018 11:40 PM CDT 01/06/2018 12:08 AM CDT Narrative [facility] - 01/06/2018 12:35 AM CDT us Dmitry Sanderson MD LAB BLOOD ORDERABLES Final Result [facility] Department [place] [address] * (ABNORMAL) CBC without differential (01/05/2018 11:40 PM CDT) WBC 8.8 3.8 - 9.9 K/cumm [facility] Hgb 10.8(L) 11.9 - 15.5 g/dL [facility] Hct 33.5(L) 35.6 - 45.5 % [facility] Plt 197 150 - 400 K/cumm [facility] MPV 10.3 9.1 - 12.3 fL [facility] RBC 3.70(L) 3.90 - 5.20 M/cumm [facility] MCV 90.5 81.3 - 96.4 fL [facility] MCH 29.2 27.1 - 33.3 pg [facility] MCHC 32.2(L) 32.3 - 35.7 g/dL [facility] RDW CV 13.5 11.1 - 14.9 % [facility] RDW SD 44.4 35.7 - 48.1 fL [facility] NRBC abs 0.00 0.00 - 0.01 K/cumm [facility] Blood specimen (specimen) 01/05/2018 11:40 PM CDT 01/06/2018 12:08 AM CDT Narrative [facility] - 01/06/2018 12:18 AM CDT us Dmitry Sanderson MD LAB BLOOD ORDERABLES Final Result [facility] Department [place] [address] * CT Abdomen Pelvis W Contrast (01/05/2018 10:20 PM CDT) Anatomical Region Laterality Modality Body N/A Computed Tomogra phy 01/06/2018 11:1 6 AM CDT Impressions 01/06/2018 11:16 AM CDT 1. No dilated loops of bowel. ??Changes of left hemicolectomy with normal-appearing anastomosis. Electronically signed by: Gilberto Chopra M.D. Narrative 01/06/2018 11:16 AM CDT EXAMINATION: CT of the abdomen and pelvis with intravenous contrast. TECHNIQUE: Computed axial tomographic images of the abdomen and pelvis were obtained with intravenous contrast according to standard protocol. ??There were no immediate complications after the intravenous administration of 100 cc optiray 350. HISTORY: Prolonged ileus after hemicolectomy FINDINGS: No comparison available. Limited views of lower thorax are normal. There is hepatic steatosis. ??Gallbladder is normal. ??No biliary ductal dilation. ??Portal vein is patent. ??Pancreas, spleen and adrenal glands are normal. Kidneys enhance symmetrically. ??There is cortical scarring in the right kidney. ??No suspicious renal lesions. ??No hydronephrosis. Urinary bladder is decompressed. ??Uterus and ovaries are normal. There are postsurgical changes of partial left hemicolectomy. Appendix is normal. ??The anastomosis is widely patent. ??There are no dilated loops of large or small bowel. ??No free intraperitoneal fluid or air. ??There is atherosclerosis of the abdominal aorta without aneurysm. ?? No suspicious osseous lesions. Procedure Note Gilberto Chopra MD PhD - 01/06/2018 EXAMINATION: CT of the abdomen and pelvis with intravenous contrast. TECHNIQUE: Computed axial tomographic images of the abdomen and pelvis were obtained with intravenous contrast according to standard protocol. There were no immediate complications after the intravenous administration of 100 cc optiray 350. HISTORY: Prolonged ileus after hemicolectomy FINDINGS: No comparison available. Limited views of lower thorax are normal. There is hepatic steatosis. Gallbladder is normal. No biliary ductal dilation. Portal vein is patent. Pancreas, spleen and adrenal glands are normal. Kidneys enhance symmetrically. There is cortical scarring in the right kidney. No suspicious renal lesions. No hydronephrosis. Urinary bladder is decompressed. Uterus and ovaries are normal. There are postsurgical changes of partial left hemicolectomy. Appendix is normal. The anastomosis is widely patent. There are no dilated loops of large or small bowel. No free intraperitoneal fluid or air. There is atherosclerosis of the abdominal aorta without aneurysm. No suspicious osseous lesions. IMPRESSION: 1. No dilated loops of bowel. Changes of left hemicolectomy with normal-appearing anastomosis. Electronically signed by: Gilberto Chopra M.D. Dmitry Sanderson MD IMG CT PROCEDURES Fi nal Result * Potassium, whole blood (01/05/2018 6:33 AM CDT) Potassium, bld 3.9 3.3 - 4.9 mmol/L [facility] Blood specimen (specimen) 01/05/2018 6:33 AM CDT 01/05/2018 7:18 AM CDT Narrative [facility] - 01/05/2018 7:26 AM CDT Dmitry Sanderson MD LAB BLOOD ORDERABLES Final Result [facility] Department [place] [address] * XR Abdomen Ap 1 Vw (01/03/2018 1:42 PM CDT) Anatomical Region Laterality Modality Body, Abdomen N/A Computed Radiogr aphy 01/03/2018 3:38 PM CDT Impressions 01/03/2018 3:40 PM CDT A single view of the abdomen is submitted for evaluation. The lung bases are outside the field of view. ??Surgical anastomotic sutures are seen in the left hemiabdomen. ??The bowel gas pattern is normal. Electronically signed by: Slava Bush Jr., M.D. Narrative 01/03/2018 3:40 PM CDT EXAMINATION: Abdomen, one view. HISTORY: Ileus COMPARISON: 12/29/2017 Procedure Note Slava Bush MD - 01/03/2018 EXAMINATION: Abdomen, one view. HISTORY: Ileus COMPARISON: 12/29/2017 IMPRESSION: A single view of the abdomen is submitted for evaluation. The lung bases are outside the field of view. Surgical anastomotic sutures are seen in the left hemiabdomen. The bowel gas pattern is normal. Electronically signed by: Slava Bush Jr., M.D. Dmitry Sanderson MD IMG XR PROCEDURES Fi nal Result * Phosphorus (01/03/2018 1:03 PM CDT) Pathologist [facility] Phosphorus, pl 2.6 2.3 - 4.5 mg/dL [facility] Comment:Hemolyzed; result ma y be falsely elevated. Blood specimen (specimen) 01/03/2018 1:03 PM CDT 01/03/2018 1:59 PM CDT Narrative [facility] - 01/03/2018 2:28 PM CDT Kj Puga MD LAB BLOOD ORDERABLES Final R esult Performing Organization Address City/[facility]/ZIP Co de Phone Number [facility] Department of [employer] [place] [address] * Magnesium (01/03/2018 1:03 PM CDT) [facility] Magnesium 2.0 1.4 - 2.5 mg/dL [facility] Blood specimen (specimen) 01/03/2018 1:03 PM CDT 01/03/2018 1:59 PM CDT Narrative [facility] - 01/03/2018 2:28 PM CDT Result [facility] Kj Puga MD LAB BLOOD ORDERABLES Final R esult [facility] Department of [employer] [place] [address] * (ABNORMAL) CBC without differential (01/03/2018 1:03 PM CDT) [facility] WBC 9.8 3.8 - 9.9 K/cumm [facility] Hgb 10.9(L) 11.9 - 15.5 g/dL [facility] Hct 32.9(L) 35.6 - 45.5 % [facility] Plt 233 150 - 400 K/cumm [facility] MPV 11.0 9.1 - 12.3 fL [facility] RBC 3.73(L) 3.90 - 5.20 M/cumm [facility] MCV 88.2 81.3 - 96.4 fL [facility] MCH 29.2 27.1 - 33.3 pg [facility] MCHC 33.1 32.3 - 35.7 g/dL [facility] RDW CV 13.7 11.1 - 14.9 % [facility] RDW SD 44.0 35.7 - 48.1 fL [facility] NRBC abs 0.00 0.00 - 0.01 K/cumm [facility] Blood specimen (specimen) 01/03/2018 1:03 PM CDT 01/03/2018 1:59 PM CDT Narrative [facility] - 01/03/2018 2:09 PM CDT us Kj Puga MD LAB BLOOD ORDERABLES Final R esult [facility] Department [place] [address] * Basic metabolic panel (01/03/2018 1:03 PM CDT) [facility] Sodium 139 135 - 145 mmol/L [facility] Potassium, pl See Comment 3.3 - 4.9 mmol/L [facility] Comment:CRDT; Grossly Hemoly zed sample; Unable to test. Chloride 105 97 - 110 mmol/L [facility] CO2 27 22 - 32 mmol/L [facility] Anion gap 7 2 - 15 mmol/L [facility] BUN 12 8 - 25 mg/dL [facility] Creatinine 0.78 0.60 - 1.10 mg/dL [facility] Glucose 91 70 - 199 mg/dL [facility] 2017. Calcium 8.9 8.5 - 10.3 mg/dL [facility] Blood specimen (specimen) 01/03/2018 1:03 PM CDT 01/03/2018 1:59 PM CDT Narrative [facility] - 01/03/2018 2:28 PM CDT us Kj Puga MD LAB BLOOD ORDERABLES Final R esult [facility] Department [place] [address] documented in this encounter Visit Diagnoses Not on filedocumented in this encounter Administered Medications Inactive Administered Medications - up to 3 most recent administrations Medication Order MAR Action Action Date Dose Rate Site bisacodyl (DULCOLAX) suppository 10 mg 10 mg, rectal, Once, On 01/05/18 at 0915, For 1 dose, Indications: constipationIndications: constipation Given 01/05/2018 8:48 AM CDT 10 mg bisacodyl EC (DULCOLAX EC) tablet 5 mg 5 mg, oral, 2 times daily, First dose on 01/05/18 at 1130, Do not crush or chew, Indications: constipationIndications: constipation calcium carbonate (TUMS) chewable tablet 500 mg 500 mg, oral, Once, On 01/06/18 at 1400, For 1 dose Given 01/06/2018 1:27 PM CDT 500 mg dextrose 5% and Lactated Ringer's infusion 100 mL/hr, intravenous, Continuous, Starting on Sat01/03/18 at 1545 Rate/Dose Verify 01/06/2018 9:51 AM CDT 100 mL/hr 100 mL/hr New Bag 01/06/2018 5:02 AM CDT 100 mL/hr 100 mL/hr Rate/Dose Verify 01/05/2018 10:07 PM CDT 100 mL/hr 100 mL /hr diatrizoate meglumine-diatrizoate sodium (GASTROGRAFIN/MD-GASTROVIEW) 66-10 % solution 6 mL 6 mL, oral, Once in imaging, contrast, Starting on Sat01/05/18 at 1608, For 1 dose, Imaging Protocol Orders, Indications: Digestive System RadiographyIndications:Digesti ve System Radiography Given 01/05/2018 7:35 PM CDT 6 mL enoxaparin (LOVENOX) syringe 40 mg 40 mg, subcutaneous, Daily (for enoxaparin), First dose on Sat01/03/18 at 2100, Indications: Deep Vein Thrombosis PreventionIndications:Deep Vein Thrombosis Prevention Given 01/05/2018 8:49 PM CDT 40 mg Left Lower Abdomen Given 01/04/2018 7:42 PM CDT 40 mg Ri ght Lower Abdomen Given 01/03/2018 8:28 PM CDT 40 mg Le ft Lower Abdomen heparin 5,000 unit/mL injection 5,000 Units 5,000 Units, subcutaneous, Every 8 hours scheduled, First dose on Sat01/03/18 at 1400, Indications: Deep Vein Thrombosis PreventionIndication s:Deep Vein Thrombosis Prevention Given 01/03/2018 2:03 PM CDT 5,000 Units Right Lower Abdomen ioversol (OPTIRAY 350) syringe syringe 100 mL 100 mL, intravenous, Once in imaging, contrast, Starting on Sat01/05/18 at 2215, For 1 dose Given 01/05/2018 10:17 PM CDT 100 mL Lactated Ringer's (LR) infusion 100 mL/hr, intravenous, Continuous, Starting on Sat01/03/18 at 1230 Rate/Dose Verify 01/03/2018 3:00 PM CDT 100 mL/hr 100 mL/hr New Bag 01/03/2018 12:37 PM CDT 100 mL/hr 100 mL/hr ondansetron ODT (ZOFRAN-ODT) disintegrating tablet 4 mg 4 mg, oral, 4 times daily PRN, nausea, vomiting, Starting on Sat01/03/18 at 1744 Given 01/04/2018 10:26 PM CDT 4 mg Given 01/03/2018 7:30 PM CDT 4 mg polyethylene glycol (MIRALAX) packet 17 g 17 g, oral, 2 times daily, First dose on 01/04/18 at 0900 Given 01/05/2018 8:50 PM CDT 17 g Given 01/05/2018 8:48 AM CDT 17 g Given 01/04/2018 4:29 PM CDT 17 g potassium chloride ER (KLOR-CON,K-DUR) extended release tablet 20 mEq 20 mEq, oral, Once, On Sat01/05/18 at 1130, For 1 dose, Do not crush or chew Given 01/05/2018 1:35 PM CDT 20 mEq potassium chloride ER (KLOR-CON,K-DUR) extended release tablet 20 mEq 20 mEq, oral, Once, On 01/06/18 at 0730, For 1 dose, Do not crush or chew Given 01/06/2018 9:19 AM CDT 20 mEq sertraline (ZOLOFT) tablet 50 mg 50 mg, oral, Nightly, First dose on 01/04/18 at 2245, Indications: Anxiety with DepressionIndications:Anxiety with Depression Given 01/05/2018 8:5 0 PM CDT 50 mg Given 01/04/2018 10:22 PM CDT 50 mg sodium chloride 0.9% flush 0.5-20 mL 0.5-20 mL, intra-catheter, Every 8 hours scheduled, First dose on Sat01/03/18 at 1400, Flush volume based on line type and size. , Indications: FlushingIndications:Flushing Given 01/06/2018 5:22 AM CDT 10 mL Given 01/03/2018 12:37 PM CDT 10 mL sodium chloride 0.9% flush 0.5-20 mL 0.5-20 mL, intra-catheter, As needed, line care, Starting on Sat01/03/18 at 1145, Flush volume based on line type and size. Flush before and after each use. , Indications: FlushingIndications:Flushing Given 01/05/2018 10:00 PM CDT 10 mL documented in this encounter Active and Recently Administered Medications Times are shown in CDT. Scheduled Medication Order 01/04/2018 01/05/2018 01/06/2018 bisacodyl (DULCOLAX) suppository 10 mg (COMPLETED) 10 mg, rectal, Once, On 01/05/18 at 0915, For 1 dose, Indications: constipation 0848 (Given - Provider: Na Ace, LYDIA) bisacodyl EC (DULCOLAX EC) tablet 5 mg 5 mg, oral, 2 times daily, First dose on 01/05/18 at 1130, Do not crush or chew, Indications: constipation 1130 (Not Given - Provider: Na Ace, LYDIA - Reason: Patient/family refused)2051 (Not Given - Provider: Casandra Falk - Reason: Patient/family refused) 09 (Not Given - Provider: Mora Sena, LYDIA - Reason: Patient/family refused) calcium carbonate (TUMS) chewable tablet 500 mg (COMPLETED) 500 mg, oral, Once, On Sat01/06/18 at 1400, For 1 dose 1327 (Given - Provider: Mora Sena, LYDIA) enoxaparin (LOVENOX) syringe 40 mg 40 mg, subcutaneous, Daily (for enoxaparin), First dose on Sat01/03/18 at 2100, Indications: Deep Vein Thrombosis Prevention 1942 (Given - Provider: Diana Reid, LYDIA) 2048 (Given - Provider: Casandra Falk) polyethylene glycol (MIRALAX) packet 17 g 17 g, oral, 2 times daily, First dose on 01/04/18 at 0900 1629 (Given - Provider: Na Ace, LYDIA)2020 (Not Given - Provider: Diana Reid, LYDIA - Reason: Other - Comment: first dose given late. will continue regular schedule in am) 0848 (Given - Provider: Na Ace, LYDIA)2049 (Given - Provider: Casandra Falk) 09 (Not Given - Provider: Mora Sena, LYDIA - Reason: Patient/family refused) potassium chloride ER (KLOR-CON,K-DUR) extended release tablet 20 mEq (COMPLETED) 20 mEq, oral, Once, On 01/05/18 at 1130, For 1 dose, Do not crush or chew 1335 (Given - Provider: Na Ace RN) potassium chloride ER (KLOR-CON,K-DUR) extended release tablet 20 mEq (COMPLETED) 20 mEq, oral, Once, On 01/06/18 at 0730, For 1 dose, Do not crush or chew 0919 (Given - Provider: Mora Sena, LYDIA - Comment: waiting for patient to eat breakfast) sertraline (ZOLOFT) tablet 50 mg 50 mg, oral, Nightly, First dose on 01/04/18 at 2245, Indications: Anxiety with Depression 2222 (Given - Provider: Diana Reid RN) 2049 (Given - Provider: Casandra Falk) sodium chloride 0.9% flush 0.5-20 mL 0.5-20 mL, intra-catheter, Every 8 hours scheduled, First dose on Sat01/03/18 at 1400, Flush volume based on line type and size. , Indications: Flushing 0629 (Not Given - Provider: Diana Reid RN - Reason: Order parameters not met - Comment: fluids infusing)1400 (Due)2021 (Not Given - Provider: Diana Reid RN - Reason: Order parameters not met - Comment: fluids infusing) 0418 (Not Given - Provider: Diana Reid RN - Reason: Order parameters not met - Comment: fluids infusing)1947 (Not Given - Provider: Na Ace RN - Reason: Order parameters not met)2206 (Not Given - Provider: Diana Reid RN - Reason: Order parameters not met) 0522 (Given - Provider: Casandra Falk)1323 (Not Given - Provider: Mora Sena RN - Reason: Loss of IV access) Continuous Medication Order 01/04/2018 01/05/2018 01/06/2018 dextrose 5% and Lactated Ringer's infusion 100 mL/hr, intravenous, Continuous, Starting on Sat01/03/18 at 1545 0055 (New Bag - Provider: Diana Reid RN)0630 (Rate/Dose Verify - Provider: Diana Reid RN)1138 (Due)2151 (New Bag - Provider: Diana Reid RN) 0123 (Rate/Dose Verify - Provider: Diana Reid RN)0709 (Rate/Dose Verify - Provider: Diana Reid RN)0900 (New Bag - Provider: Na Ace, LYDIA)1946 (New Bag - Provider: Na Ace, RN)2207 (Rate/Dose Verify - Provider: Diana Reid RN) 0502 (New Bag - Provider: Casandra Falk)0951 (Rate/Dose Verify - Provider: Mora Sena, LYDIA)1040 (Stopped - Provider: Mora Sena, LYDIA) PRN Medication Order 01/04/2018 01/05/2018 01/06/2018 diatrizoate meglumine-diatrizoate sodium (GASTROGRAFIN/-GASTROVIEW) 66-10 % solution 6 mL (COMPLETED) 6 mL, oral, Once in imaging, contrast, Starting on Sat01/05/18 at 1608, For 1 dose, Imaging Protocol Orders, Indications: Digestive System Radiography 1934 (Given - Provider: Diana Reid RN) ioversol (OPTIRAY 350) syringe syringe 100 mL (COMPLETED) 100 mL, intravenous, Once in imaging, contrast, Starting on Sat01/05/18 at 2215, For 1 dose 221 (Given - Provider: Rosa Dawson, R-RT) ondansetron ODT (ZOFRAN-ODT) disintegrating tablet 4 mg 4 mg, oral, 4 times daily PRN, nausea, vomiting, Starting on Sat01/03/18 at 1744 2226 (Given - Provider: Diana Reid RN) sodium chloride 0.9% flush 0.5-20 mL 0.5-20 mL, intra-catheter, As needed, line care, Starting on Sat01/03/18 at 1145, Flush volume based on line type and size. Flush before and after each use. , Indications: Flushing 2199 (Given - Provider: Casandra Falk) documented in this encounter Orders Medications Ordered That [facility] ht Not Have Been Administered Count Last Ordered Date First Ordered Date bisacodyl EC (DULCOLAX EC) tablet 5 mg 1 Diet Count Last Ordered Date First Orde red Date ADULT DISCHARGE DIET 1 01/06/2018 Nursing Count Last Ordered Date First Orde red Date DISCHARGE ACTIVITY 2 01/06/2018 DISCHARGE CALL PROVIDER 6 01/06/2018 OTHER FOLLOW UP 1 01/06/2018 Admission Count Last Ordered Date First Orde red Date ASSIGN PATIENT STATUS 1 01/03/2018 documented in this encounter Care Teams Division Chief Relationship Specialty Start Date End Date Ravi Smith MD PCP - General 11/04/17 09/27/21 Aft, Kianna Machado MD PhD [address] [place] [address] Surgeon Surgical Oncology 11/22/17 Santiago Gilbert MD [address] [place] [address] Telecine Operator Gastroenterology 11/22/17 documented as of this encounter
--- OUTSIDE RECORDS SUMMARY | 2024-04-24 13:53 | XMS_ITS | Encounter Summary ---
Author Organization [facility] Healthcare Address [address] [place] [address] Care Team Providers Care Hiv Cts Specialist Name Role Phone Ravi Smith MD Primary Care Provider [phone] Aileent, Kianna Machado MD PhD Unavailable [phone] Santiago Gilbert MD Unavailable [phone] Encounter Details Date Type Department Care Team (Late st Contact Info) Description 01/13/2018 Orders Only Radiology [address] [place] [address] Elie Bradley MD [address] [facility] [address] [place], [place] [id number] Social History Tobacco Use Types Packs/Day Years Used Date Smoking Tobacco: Former Cigarettes 2015 Smokeless Tobacco: Never Alcohol Use Standard Drinks/Week Comments Yes 0 (1 standard drink = 0.6 oz pur e alcohol) socially Comments No Sex and Gender Information Value Date Recorded Sex Assigned at Not on file 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
--- OUTSIDE RECORDS SUMMARY | 2024-04-24 13:53 | XMS_ITS | Encounter Summary ---
Author Organization [facility] Address [address] [place] [address] Phone Care Team Providers Care Logistics Technician Name Role Phone Ravi Smith MD Primary Care Provider [phone] Aft, Kianna Machado MD PhD Unavailable [phone] Santiago Gilbert MD Unavailable [phone] Reason for Visit * Reason Comments Colon Cancer Encounter Details Date Type Department Care Team (Late st Contact Info) Description 11/28/2017 2:45 PM CDT Office Visit [facility] Surgery [address] [place] [address] Dmitry Sanderson MD [address] [facility] [phone] [address] [place] [address] Malignant neoplasm of transverse colon (CMS/HCC) (Primary Dx); Malignant neoplasm of upper-inner quadrant of left breast in female, 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) Social History Tobacco Use Types Packs/Day Years Used Date Smoking Tobacco: Never Smokeless Tobacco: Never Tobacco Cessation:Counseling Given: No Alcohol Use Standard Drinks/Week Comments Yes 0 (1 standard drink = 0.6 oz pur e alcohol) socially Comments No Sex and Gender Information Value Date Recorded Sex Assigned at Not on file 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 Gender Identity Not on file Sexual Orientation Not on file documented as of this encounter Last Filed Vital Signs Vital Sign Reading Time Taken Comments Blood Pressure 135/62 11/28/2017 2:53 PM CDT Pulse 86 11/28/2017 2:53 PM CDT Temperature 36.9 ??C (98.4 ??F) 11/28/2017 2:53 PM CD T Respiratory Rate 20 11/28/2017 2:53 PM CDT Oxygen Saturation 96% 11/28/2017 2:53 PM CDT Inhaled Oxygen Concentration - - Weight 114.9 kg (253 lb 3.2 oz) 11/28/2017 2:53 PM CDT Height - - Body Mass Index 37.93 11/26/2017 3:47 PM CDT documented in this encounter Progress Notes * Dmitry Sanderson MD - 11/28/2017 2:45 PM CDT Colon & Rectal Surgery Note Patient: Aleah Gerber : 1955 Chief complaint of colon cancer, requested to be seen by Kianna Bunch MD PhD HPI: Ms. Gerber is a 62 y.o. female referred for newly diagnosed left-sided colon cancer, in conjunctionwith a left breast cancer. Patient noticed a several month history of a change in her stools, with progressive looser and more frequent stools. She denies any gross bleeding. Her last colonoscopy was8 years ago and showed 2 polyps. A repeat colonoscopy demonstrated multiple polyps and a mass within the descending colon. The pathology from colonoscopy is as follows: ascending colon TVA, cecum TVA, ascending colon serrated adenoma, transverse colon TA, rectal serrated adenoma, and descending colon mass showing adenocarcinoma with mucinous features. Subsequent staging CT revealed the mass in the left breast which has been biopsied as triple negative breast cancer. I personally reviewed the noncontrast CT scan. There is no clear evidence of metastatic disease. A mass is present at the hepatic flexure in the distal transverse colon. There is no evidence of radiographic obstruction. Review of Systems: Refer to scanned media. Physical exam: Appearance - well developed, overweight Orientation - alert and oriented x 3 Eyes - anicteric Neuro - non-focal Lungs - no wheezing Cardiac - regular rate and rhythm Extremities - within normal limits grossly Inguinal Nodes - no adenopathy Abdomen - soft nontender nondistended Assessment & Plan: (C18.4) Malignant neoplasm of transverse colon (CMS/HCC) (primary encounter diagnosis) (C50.212, Z17.1) Malignant neoplasm of upper-inner quadrant of left breast in female, 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) I discussed the current diagnosis with the patient, and her care was coordinated directly with Dr. Bunch and Dr. Ventura. Given the 2 separate primary lesions, it seems reasonable to proceed with surgical resection of both in order to establish her definitive staging prior to commencing with systemic chemotherapy. The location of the tumor is somewhat problematic, and we discussed both laparoscopic left or extended right hemicolectomy depending on the appearance at the time of laparoscopy. The risks of surgery including but not limited to infection, bleeding, injury to surrounding structures, anastomotic leak, need for further surgery or ostomy, and medical complications were all disclosed. At present, the plan is to proceed with breast surgery first, followed closely by colectomy within roughly 5-7 days. Dmitry Sanderson MD, FACS, FASCRS weed cooking operator Section of Colon & Rectal Surgery [facility] [phone] 11/29/2017 8:44 AM Dictated note was generated using voice-camp dining room attendant technology and some variance may result. documented in this encounter Plan of Treatment Not on file documented as of this encounter Visit Diagnoses Diagnosis Malignant neoplasm of transverse colon (CMS/HCC) (HCC)- Primary Malignant neoplasm of transverse colon Malignant neoplasm of upper-inner quadrant of left breast in female, estrogen receptor negative (HCC) documented in this encounter Care Teams Logistics Technician Relationship Specialty Start Date End Date Ravi Smith MD PCP - General 11/04/17 09/27/21 Kianna Bunch MD PhD [address] [place] [address] Surgeon Surgical Oncology 11/22/17 Santiago Gilbert MD [address] [place] [address] Incident Engineer Gastroenterology 11/22/17 documented as of this encounter
--- OUTSIDE RECORDS SUMMARY | 2024-04-24 13:53 | XMS_ITS | Encounter Summary ---
Author Organization [facility] Address [address] [place] [address] Care Team Providers Care Spice Miller Name Role Phone Ravi Smith MD Primary Care Provider [phone] Aileent, Kianna Machado MD PhD Unavailable [phone] Santiago Gilbert MD Unavailable [phone] Encounter Details Date Type Department Care Team (Late st Contact Info) Description 11/26/2017 8:00 AM CDT Ancillary Procedure [facility] Outside Films Social History Tobacco Use Types Packs/Day Years Used Date Smoking Tobacco: Never Smokeless Tobacco: Never Alcohol Use Standard Drinks/Week Comments Yes 0 (1 standard drink = 0.6 oz pur e alcohol) socially Comments No Sex and Gender Information Value Date Recorded Sex Assigned at Not on file 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 us Not In File Miscellaneous IMG MRI PROCEDURES Fin al Result [facility] documented in this encounter Visit Diagnoses Not on filedocumented in this encounter Care Teams Spice Miller Relationship Specialty Start Date End Date Ravi Smith MD PCP - General 11/04/17 09/27/21 Aft, Kianna Machado MD PhD [address] [place] [address] Surgeon Surgical Oncology 11/22/17 Santiago Gilbert MD [address] [place] [address] Mis Director Gastroenterology 11/22/17 documented as of this encounter
--- OUTSIDE RECORDS SUMMARY | 2024-04-24 13:53 | XMS_ITS | Encounter Summary ---
Author Organization [facility] Address [address] [place] [address] Phone Care Team Providers Care Chemical Operator Name Role Phone Ravi Smith MD Primary Care Provider [phone] Tony Bunch MD PhD Unavailable [phone] Santiago Gilbert MD Unavailable [phone] Reason for Referral * Diagnostic Imaging (Routine) - Closed Specialty Diagnoses / Procedures Referred By Vijaya simpson Referred To Contact Radiology Diagnoses Infiltrating ductal carcinoma of female breast, unspecified laterality (HCC) Procedures MRI Breast Bilateral W WO Contrast Tony Bunch MD PhD Phone: tel: fax: [facility] [address] [place] [address] Referral ID Status Reason Start Date Expiration Date Visits Re quested Visits Authorized [id number] Closed 11/18/2017 05/30/2019 1 1 Encounter Details Date Type Department Care Team (Late st Contact Info) Description 11/18/2017 Orders Only [facility] Surgery [address] [place] [address] [place] [address] Carlota Bar RMA Infiltrating ductal carcinoma of female breast, unspecified laterality (CMS/HCC) (Primary Dx) Social History Tobacco Use Types Packs/Day Years Used Date Smoking Tobacco: Never Smokeless Tobacco: Never Alcohol Use Standard Drinks/Week Comments Yes 0 (1 standard drink = 0.6 oz pur e alcohol) socially Comments No Sex and Gender Information Value Date Recorded Sex Assigned at Not on file 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 ??Unifocal malignancy of the left breast, consistent with biopsy-proven invasive ductal carcinoma. OVERALL FINAL ASSESSMENT: BIRADS Category 6. ??Known Biopsy-Proven Malignancy Electronically signed by: Ronny Samuel M.D. Narrative 11/26/2017 4:45 PM CDT ALEAH AGUILAR, : 1955 (62 years), , Ordering Provider: TONY Machado AFT EXAMINATION: 1. MRI EXAMINATION OF THE BREASTS WITH AND WITHOUT CONTRAST 2. 3D POST PROCESSING ON A DEDICATED 3D WORKSTATION HISTORY: 62-year-old woman with biopsy-proven invasive ductal carcinoma at 9:00 in the left breast, per biopsy performed on 11/12/2017. ??Evaluate extent of disease. ??Of note, the patient also has a recent diagnosis of colorectal cancer. ?? DATE OF LAST MENSTRUAL PERIOD: Postmenopausal. TECHNIQUE: MRI examination of the breasts per breast tumor protocol with and without gadolinium contrast. ??A dedicated breast imaging coil was used. ??The images were transferred to a breast CAD system for 3D post processing and contrast kinetics analysis. ?? Estimated GFR: > 60 ml/min/1.73 square meters Creatinine: 1.0 mg/dL Contrast: Dotarem, 15 ml COMPARISON: Post clip mammogram dated 11/12/2017. ??Diagnostic bilateral mammogram dated 11/05/2017. BREAST COMPOSITION: Heterogeneous fibroglandular tissue BACKGROUND PARENCHYMAL ENHANCEMENT: Mild FINDINGS: In the medial left breast at middle to posterior depth, there is a 2.2 x 2.1 x 2.1 cm round mass with spiculated margins, rim enhancement and washout-plateau kinetics. ??No other suspicious abnormality of the left breast. No suspicious abnormality of the right breast. A single left low axillary lymph node has borderline focal cortical thickening measuring up to 4 mm. ??In light of normal ultrasound examination of the axilla, this is of uncertain significance. Otherwise, no abnormally enlarged lymph nodes are identified in the visualized portions of either axilla. Procedure Note Ronny Samuel MD - 11/26/2017 ALEAH AGUILAR, : 1955 (62 years), , Ordering Provider: TONY Machado AFT EXAMINATION: 1. MRI EXAMINATION OF THE BREASTS WITH AND WITHOUT CONTRAST 2. 3D POST PROCESSING ON A DEDICATED 3D WORKSTATION HISTORY: 62-year-old woman with biopsy-proven invasive ductal carcinoma at 9:00 in the left breast, per biopsy performed on 11/12/2017. Evaluate extent of disease. Of note, the patient also has a recent diagnosis of colorectal cancer. DATE OF LAST MENSTRUAL PERIOD: Postmenopausal. TECHNIQUE: MRI examination of the breasts per breast tumor protocol with and without gadolinium contrast. A dedicated breast imaging coil was used. The images were transferred to a breast CAD system for 3D post processing and contrast kinetics analysis. Estimated GFR: > 60 ml/min/1.73 square meters Creatinine: 1.0 mg/dL Contrast: Dotarem, 15 ml COMPARISON: Post clip mammogram dated 11/12/2017. Diagnostic bilateral mammogram dated 11/05/2017. BREAST COMPOSITION: Heterogeneous fibroglandular tissue BACKGROUND PARENCHYMAL ENHANCEMENT: Mild FINDINGS: In the medial left breast at middle to posterior depth, there is a 2.2 x 2.1 x 2.1 cm round mass with spiculated margins, rim enhancement and washout-plateau kinetics. No other suspicious abnormality of the left breast. No suspicious abnormality of the right breast. A single left low axillary lymph node has borderline focal cortical thickening measuring up to 4 mm. In light of normal ultrasound examination of the axilla, this is of uncertain significance. Otherwise, no abnormally enlarged lymph nodes are identified in the visualized portions of either axilla. IMPRESSION: 1. Unifocal malignancy of the left breast, consistent with biopsy-proven invasive ductal carcinoma. OVERALL FINAL ASSESSMENT: BIRADS Category 6. Known Biopsy-Proven Malignancy Electronically signed by: Ronny Samuel M.D. Tony Bunch MD PhD IMG MRI PROCEDURES Final R esult documented in this encounter Visit Diagnoses Diagnosis Infiltrating ductal carcinoma of female breast, unspecified laterality (HCC)- Primary documented in this encounter Care Teams Chemical Operator Relationship Specialty Start Date End Date Ravi Smith MD PCP - General 11/04/17 09/27/21 Tony Bunch MD PhD [address] [place] [address] Surgeon Surgical Oncology 11/22/17 Santiago Gilbert MD [address] [place] [address] Supervisor Self Service Store Gastroenterology 11/22/17 documented as of this encounter
--- OUTSIDE RECORDS SUMMARY | 2024-04-24 13:53 | XMS_ITS | Encounter Summary ---
Author Organization [facility] Address [address] [place] [address] Phone Care Team Providers Care Extension Service Specialist Name Role Phone Ravi Smith MD Primary Care Provider [phone] Aft, Kianna Machado MD PhD Unavailable [phone] Santiago Gilbert MD Unavailable [phone] Reason for Visit * Reason Onset Date Comments Follow-up 01/02/2018 Encounter Details Date Type Department Care Team (Late st Contact Info) Description 01/02/2018 Telephone [facility] Surgery [facility] 8[address] [place] [address] [place] [address] Dmitry Sanderson MD [address] [facility] [phone] [place] [address] Follow-up Social History Tobacco Use Types Packs/Day Years Used Date Smoking Tobacco: Former Cigarettes 2015 Smokeless Tobacco: Never Alcohol Use Standard Drinks/Week Comments No 0 (1 standard drink = 0.6 oz pur e alcohol) socially Comments No Sex and Gender Information Value Date Recorded Sex Assigned at Not on file 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 I attempted to call patient but was unable to reach her. * Telephone Encounter - Sue Wiley LPN - 01/02/2018 1:09 PM CDT I spoke to the patient. She has had nausea and one episode of vomiting, she was incontinent at thattime. She has had night sweats. Her abdomen is distended and she feels like there are twins inside of her. I consulted Dr. Garza, he recommended we bring her in for a 23 hour obs. The hospital will call her when a bed is available. * Telephone Encounter - Keely Frederick - 01/02/2018 12:28 PM CDT Patient called with post-operative concerns. She is S/P 12/27/2017 Laparoscopic left hemicolectomy by Dr. Sanderson. She is c/o abdominal distention and spasms. She is not passing gas. She said she's been ambulating and chewing gum but is not getting relief. Message sent to nursing staff for triage. documented in this encounter Plan of Treatment Not on file documented as of this encounter Visit Diagnoses Not on filedocumented in this encounter Care Teams Extension Service Specialist Relationship Specialty Start Date End Date Ravi Smith MD PCP - General 11/04/17 09/27/21 Aft, Kianna Machado MD PhD [address] [place] [address] Surgeon Surgical Oncology 11/22/17 Santiago Gilbert MD [address] [place] [address] Youth Career Specialist Gastroenterology 11/22/17 documented as of this encounter
--- OUTSIDE RECORDS SUMMARY | 2024-04-24 13:53 | XMS_ITS | Encounter Summary ---
Author Organization [facility] Address [address] [place] [address] Phone Care Team Providers Care Claims Consultant Name Role Phone Ravi Smith MD Primary Care Provider [phone] Aft, Kianna Machado MD PhD Unavailable [phone] Santiago Gilbert MD Unavailable [phone] Encounter Details Date Type Department Care Team (Late st Contact Info) Description 12/03/2017 Orders Only [facility] Surgery [address] [place] [address] Aft, Kianna Machado MD PhD [address] [place] [address] Social History Tobacco Use Types Packs/Day Years Used Date Smoking Tobacco: Never Smokeless Tobacco: Never Alcohol Use Standard Drinks/Week Comments Yes 0 (1 standard drink = 0.6 oz pur e alcohol) socially Comments No Sex and Gender Information Value Date Recorded Sex Assigned at Not on file 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
--- OUTSIDE RECORDS SUMMARY | 2024-04-24 13:53 | XMS_ITS | Encounter Summary ---
Author Organization [facility] Address [address] [place] [address] Phone Care Team Providers Care Wool Scourer Name Role Phone Ravi Smith MD Primary Care Provider [phone] Aft, Kianna Machado MD PhD Unavailable [phone] Santiago Gilebrt MD Unavailable [phone] Encounter Details Date Type Department Care Team (Late st Contact Info) Description 11/27/2017 4:50 PM CDT Office Visit [facility] [address] [place] [address] [place] Social History Tobacco Use Types Packs/Day Years Used Date Smoking Tobacco: Never Smokeless Tobacco: Never Alcohol Use Standard Drinks/Week Comments Yes 0 (1 standard drink = 0.6 oz pur e alcohol) socially Comments No Sex and Gender Information Value Date Recorded Sex Assigned at Not on file 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 Gender Identity Not on file Sexual Orientation Not on file documented as of this encounter Plan of Treatment Not on file documented as of this encounter Procedures Procedure Name Priority Date/Time Associated Diagnosis Comments SURGICAL PATHOLOGY Routine 11/27/2017 10 :42 AM CDT documented in this encounter Results * Surgical pathology (11/27/2017 10:42 AM CDT) 11/27/2017 10:4 2 AM CDT 11/27/2017 10:42 AM CDT Narrative 11/29/2017 4:08 PM CDT EPIC results best viewed via link to PDF [facility] Pathology Consult Service [address], [address], [place] [address] SURGICAL PATHOLOGY REPORT * Consult Report * FINAL Patient Name: ??ALEAH AGUILAR Address: ?? [facility], ?[place], [place] ??[address] Gender: ??F : ??1955 (Age: 62) Hospital #: ??[id number] Patient Type: ??WU Location: ??[facility] OUT[facility] Taken: ??11/27/2017 Received: ??11/27/2017 Accessioned: ??11/28/2017 Reported: ??11/29/2017 Physician(s): Abbi Ventura M.D. [facility] Department of Pathology [address] [place], [place] [id number] P: [phone] F: [phone] Histology: [phone] Diagnosis: Consult material received from [place], [place] (OSC #[id number]; 10/22/2017) Large intestine, ascending colon, biopsy (OSC #[id number]) ? - Superficial fragments of tubular adenoma Large intestine, rectum, polypectomy (OSC #[id number]) ? - Fragments of tubular adenoma - Separate superficial fragments of serrated polyp, uncertain whether it represents hyperplastic polyp or a sessile serrated adenoma Large intestine, cecum, polypectomy (OSC #[id number]) ? - Fragments of tubular adenoma Large intestine, ascending colon, polypectomy (OSC #[id number]) ? - Fragments of tubular adenoma - Separate fragments of sessile serrated adenoma Large intestine, transverse colon, polypectomy (OSC #[id number]) ? -Tubular adenoma Large intestine, descending colon, mass, endoscopic biopsy (OSC #[id number]) ? - Invasive, moderately differentiated adenocarcinoma with mucinous features /11/29/2017 08:07 By this signature, I attest that the above diagnosis is based upon my personal examination of the slides(and/or other material indicated in the diagnosis). Tom Jewell M.D. Report Electronically Reviewed and Signed Out By Tom Jewell M.D. Microscopic Description and Comment: Microscopic examination substantiates the above cited diagnosis. Cristobal Shelby M.D., Ph.D. History: The patient is a 62 year old woman. Materials Received: Received for review are thirteen slides labeled [id number], accompanied by a corresponding pathology report. ??The material originates from [place], [place]. Selected slide(s) may be digitally scanned for our files, and all materials are returned to the referring institution, along with a copy of our final report. Any testing required for diagnostic purposes was performed in the Department of Pathology and Immunology at [facility], [address] [place] [id number] CLIA # [id number] The performance characteristics of the testing cited in this report (if any) were determined by the ??[facility] Department of Pathology and Immunology [facility], as part of an ongoing quality control expert program and in compliance with federally mandated regulations drawn from the Clinical Laboratory Improvement Act of 1988 (CLIA '88). ??Some of these tests rely on the use of analyte specific reagents (ASR) and are subject to specific labeling requirements by the US Food and Drug Administration. ??Such diagnostic tests may only be performed in a facility that is certified by the Department of Health and Human Services as a high complexity laboratory under CLIA '88. ??The FDA has determined that such clearance or approval is not necessary. ??ASRs should not be regarded as investigational or for research. ??ASRs were developed and the performance characteristics determined by the [facility], [facility] Department of Pathology and Immunology. ??It has not been cleared or approved by the U.S. Food and Drug Administration. ??Any test designated as LDT was developed and its performance characteristics determined by [facility]. It has not been cleared or approved by the FDA. This test is used for clinical purposes and should not be regarded as investigational or for research. Report images and/or scanned reports, if included, only viewable in PDF version of report. us Abbi Ventura MD LAB PATHOLOGY ORDERABLES Final R esult documented in this encounter Visit Diagnoses Not on filedocumented in this encounter Care Teams Wool Scourer Relationship Specialty Start Date End Date Ravi Smith MD PCP - General 11/04/17 09/27/21 Aft, Kianna Machado MD PhD [address] [facility] [place], [place] [id number] Surgeon Surgical Oncology 11/22/17 Santiago Gilbert MD [address] [place] [address] Mineralogy Teacher Gastroenterology 11/22/17 documented as of this encounter
--- OUTSIDE RECORDS SUMMARY | 2024-04-24 13:53 | XMS_ITS | Encounter Summary ---
Author Organization [facility] Address [address] [place] [address] Care Team Providers Care Land Leveler Name Role Phone Ravi Smith MD Primary Care Provider [phone] Encounter Details Date Type Department Care Team (Latest Contact Info) Description 11/11/2017 11:58 AM CDT - 11/11/2017 11:59 PM CDT Hospital Encounter [facility] [address] [place] [address] Discharge Disposition: Discharge to home or self care Social History Tobacco Use Types Packs/Day Years Used Date Smoking Tobacco: Never Assessed Comments Unknown Sex and Gender Information Value Date Recorded Sex Assigned at Not on file 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 11/07/2017 02/20/2018 documented as of this encounter Discharge Disposition Disposition Code Departure Means Destination Discharge to home or self care documented in this encounter Plan of Treatment Not on file documented as of this encounter Procedures Procedure Name Priority Date/Time Associated Diagnosis Comments BREAST IMAGING OUTSIDE REFERENCE Routine 11/11/2017 11:58 AM CDT documented in this encounter Results * Breast Imaging Outside Reference (11/11/2017 11:58 AM CDT) Impressions [facility] - 11/11/2017 11:58 AM CDT These images are for Reference purposes only and have not been reviewed by [facility] Radiology. ??There will be no report generated by a [facility] Radiologist. Narrative [facility] - 11/11/2017 11:58 AM CDT EXAMINATION: ??Images For Reference Purposes Only us Aguila Loza DO IMG MAMMO PROCEDURES Fi nal Result [facility] documented in this encounter Visit Diagnoses Not on filedocumented in this encounter Care Teams Land Leveler Relationship Specialty Start Date End Date Ravi Smith MD PCP - General 11/04/17 09/27/21 documented as of this encounter
--- OUTSIDE RECORDS SUMMARY | 2024-04-24 13:53 | XMS_ITS | Encounter Summary ---
Author Organization [facility] Healthcare Address [address] [place] [address] Care Team Providers Care Circus Rider Name Role Phone Ravi Smith MD Primary Care Provider [phone] Aft, Kianna Machado MD PhD Unavailable [phone] Santiago Gilbert MD Unavailable [phone] Encounter Details Date Type Department Care Team (Late st Contact Info) Description 12/27/2017 2:23 PM CDT Anesthesia Event [facility] Operating Room [address] [place] [address] Sofie Montemayor MD [address] [place] [address] Aden Aragon MD [address] [place] [address] Anesthesia Record Procedure Summary Procedure Name Responsible Anesthesiologist Anesthesia Start Time Anesthesia Stop Time RESECTION LEFT COLON - LAPAROSCOPIC (Left: Abdomen) Sofie Montemayor MD 12/27/17 1423 12/27/17 1723 Events Date Time Event Comment 12/27/2017 1319 1423 An Start 1423 An Start Data 1423 In Room 1428 An Induction The patient was reevaluated immediately before moderate or deep sedation use and before anesthesia induction. 1431 An Intubation 1432 Anesthesia Ready 1456 Proc Start 1456 Incision Start 1711 Proc Fin 1712 An Extubation 1712 an stop data 1716 Out of Room 1723 An Stop Meds Name Total midazolam PF 2 mg lidocaine 1 % PF 100 mg fentaNYL 250 mcg propofol 130 mg rocuronium 70 mg phenylephrine 100 mcg/mL 100 mcg ePHEDrine 10 mg HYDROmorphone 2 mg/mL 2 mg ondansetron PF (ZOFRAN) 2 mg/mL injectio n 4 mg glycopyrrolate 1 mg neostigmine injection 1 mg/mL 4 mg dexamethasone 4 mg/ml 4 mg ertapenem 1,000 mg phenylephrine (GEORGIA-SYNEPHRIN E) 25,000 mcg in sodium chloride 0.9% 250 mL (100 mcg/mL) infusion 4.12 mg Lactated Ringer's (LR) infusion 1,000 mL NS 0.9% 800 mL albumin human bottle 5 % 500 mL * Agents Name O2% N2O O2 Air Sevoflurane Inspired Sevoflurane * Blood No blood administrations on file. Lines, Drains, and Airways Type Details Placement Removal Peripheral IV Placement Date: 11/25/17; Placement Time: 0732; Catheter Size: 22 G; Orientation: Right; Location: Arm; Inserted by: cornelia alvarado; Insertion Attempts: 1; Patient Tolerance: Tolerated well; Removal Date: 12/27/17; Removal Time: 1506 (removed via procedure documentation) 11/25/17 0732 by Cynthia Sargent RN 12/27/17 1506 by Anuja Olsen CRNA Peripheral IV Placement Date: 11/26/17; Placement Time: 1212; Catheter Size: 22 G; Orientation: Right; Location: Antecubital; Site Prep: Alcohol; Inserted by: cornelia newton; Insertion Attempts: 1; Patient Tolerance: Tolerated well; Removal Date: 12/27/17; Removal Time: 1506 (removed via procedure documentation) 11/26/17 1212 by Cynthia Sargent RN 12/27/17 1506 by Anuja Olsen CRNA Peripheral IV Placement Date: 12/27/17; Placement Time: 1315; Catheter Size: 18 G; Orientation: Right; Location: Antecubital; Site Prep: Alcohol; Technique: Anatomical landmarks; Insertion Attempts: 3; Patient Tolerance: Tolerated well; Removal Date: 12/29/17; Removal Reason: Occluded 12/27/17 1315 by Lisa Saenz RN 12/29/17 0000 by Carri Gerber RN Urethral Catheter Placement Date: 12/27/17; Placement Time: 1440; Inserted by: Isaura Hernandez RN; Type: Non-latex; Size: 16 Fr.; Balloon Size: 10 mL; Urine Returned: Yes; Removal Date: 12/28/17; Removal Time: 1900 (removed prior to my shift); Removal Reason: Per order 12/27/17 1440 by Mora Hernandez RN 12/28/17 1900 by Diana Reid RN ETT Placement Date: 12/27/17; Placement Time: 1456 (created via procedure documentation); Mask Ventilation: 2; Technique: Direct laryngoscopy; Type: ETT - single; Single Lumen Tube Size: 7 mm; Cuffed: Yes; Laryngoscope: Lauren; Blade Size: 3; Location: Oral; Grade View: Grade IIa; Insertion Attempts: 1; Placement Verification: Auscultation, Capnometry; Removal Date: 12/27/17; Removal Time: 1712 12/27/17 1456 by Anuja Olsen CRNA 12/27/17 1712 by Anuja Olsen CRNA Peripheral IV Placement Date: 12/27/17; Placement Time: 1506 (created via procedure documentation); Catheter Size: 18 G; Orientation: Left; Location: Hand; Site Prep: Alcohol; Removal Date: 12/30/17; Removal Time: 1100; Removal Reason: Infiltrated 12/27/17 1506 by Anuja Olsen CRNA 12/30/17 1100 by Tomas Wiley RN RETIRED Surgical Site 12/27/17; 1703; Abdomen; 03/03/18; Removal date unknown/not present on admission 12/27/17 1703 by Mora Hernandez RN 03/03/18 0000 by Reina Grullon RN documented in [...] on file 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[employer] Gender Identity Not on file Sexual Orientation Not on file documented as of this encounter OR Notes * Anesthesia Postprocedure Evaluation - Corwin Pritchard MD - 12/27/2017 6:20 PM CDT Patient: Aleah Gerber Procedure Summary Date: 12/27/17 Room / Location: [facility] OR POD 1 ROOM 331 / [facility] OR POD 1 Anesthesia Start: 1423 Anesthesia Stop: 1723 Procedure: RESECTION LEFT COLON - LAPAROSCOPIC (Left Abdomen) Diagnosis: Malignant neoplasm of colon, unspecified part of colon (CMS/HCC) (Malignant neoplasm of colon, unspecified part of colon (CMS/HCC) [C18.9]) Surgeon: Dmitry Sanderson MD Responsible Provider: Sofie Montemayor MD Anesthesia Type: general, regional for postop pain per surgeon request ASA Status: 2 Anesthesia Type: general, regional for postop pain per surgeon request Last vitals BP 123/61 (12/27/17 1800) Temp Pulse 72 (12/27/17 1805) Resp 12 (12/27/17 1805) SpO2 95 % (12/27/17 1805) Anesthesia Post Evaluation Patient location during evaluation: PACU Patient participation: complete - patient participated Level of consciousness: fully awake Pain score: 4 Pain management: adequate Airway patency: adequate Evidence of recall: no Anesthetic complications: no Cardiovascular status: acceptable Respiratory status: acceptable Hydration status: acceptable Pt is: normothermic Nausea/Vomiting status: none * Anesthesia Procedure Notes - Anuja Olsen CRNA - 12/27/2017 3:05 PM CDT Associated Order(s): PERIPHERAL LINE Peripheral IV Catheter Patient location: OR Staff: Placed by: Anesthesiologist: HÉCTOR GRANADOS Preprocedure prep: Prep solution: alcohol PPE: gloves PIV line: Laterality: left Site: hand Catheter size: 18 g * Anesthesia Procedure Notes - Anuja Olsen CRNA - 12/27/2017 2:54 PM CDT Associated Order(s): ANESTHESIA INTUBATION Airway Patient location: OR Urgency: elective Indications for airway management: anesthesia Difficult airway: no Staff: Placed by: LINDA: ANUJA OLSEN Airway prep: Preoxygenated: yes Patient position: ramp and sniffing Mask difficulty assessment: 2 - vent by mask + OA or adjuvant Sedation level during airway: GA Final airway details: Final airway type: endotracheal airway Tube type: ETT ETT size: 7.0 mm Cuffed: yes Technique used for successful ETT placement: direct laryngoscopy Devices/Methods used in placement: intubating stylet and cricoid pressure Insertion site: oral Blade type: Lauren Blade size: 3 Cormack-Lehane (direct): grade IIa - partial view of glottis Cuff volume: 5 mL Cuff inflated with: air Placement verified by: auscultation and CO2 detection Airway secured with: silk tape Number of attempts: 1 * Anesthesia Preprocedure Evaluation - Héctor Granados MD - 12/10/2017 2:42 PM CDT [facility] Preoperative Evaluation Record CPAP Clinic at the [facility] ([facility]) Anesthesia Evaluation Aleah Gerber is a 62 y.o. female Procedure(s): RESECTION RIGHT COLON - LAPAROSCOPIC HISTORY HPI Aleah Gerber is a 62 y.o. female who is being evaluated prior to undergoing colon resection for colon cancer Past Medical History Neurological + TIA Number of TIA episodes: 1. Date of last TIA: 2007. Pertinent negatives: seizures neuromuscular disease CVA/stroke CEA ICA stenosis dementia/mild cognitive impairment carotid artery stent Cardiovascular + Hyperlipidemia Pertinent negatives: hypertension CAD MT CABG valvular heart disease valve replacement atrial fibrillation dysrhythmia - non-specific pacemaker/ICD PVD DVT/PE negative for CHF drug-eluting stent(s) bare metal stent(s) coronary angioplasty Respiratory + COPD (chronic NG; states at baseline. states is not followed by a branch credit counselor.) Dyspnea frequency: daily. Rescue inhaler use: never. Hospitalizations/ER in the last year: 0. Most recent exacerbation: 2016. Pertinent negatives: asthma sleep apnea (VIOLETTE) pulmonary hypertension no O2 use outside the hospital no history of oral steriod use no prior intubation for respiratory failure non-smoker Hepatic / Heme + History of anemia - iron deficiency Pertinent negatives: liver disease history of thrombocytopenia history of Jose Roberto positive Gastrointestinal Pertinent negatives: GERD hiatal hernia Renal / Pertinent negatives: renal disease dialysis nephrolithiasis Musculoskeletal/Pain Pertinent negatives: chronic pain chronic opioid use previous treatment for opioid use disorder Endocrine / Other + Obesity (BMI >30) (BMI 37) + Cancer history- current cancer. Cancer type: 2018 colon and left breast. Pertinent negatives: diabetes mellitus thyroid disease rheumatological disease transplanted organ Functional Capacity Functional capacity: <4 METs Comments: States able to go up about 1/2 a flight of stairs without SOB. Day of Surgery assessments status unknown: LMP 2015. Review of Systems + SOB (chronic NG; states at baseline.) + wheezing (occasional) + pedal edema (ankle edema) + numbness/tingling (carpal tunnel in hands) + diarrhea (occasional; last episode 12/09) + chipped/loose teeth (loose tooth left lower; under care of dentist) Pertinent negatives: productive cough; recent cold/flu; fever; chest pain; palpitations; orthopnea; PND; heavy menses; Sickle Cell disease/trait; previous transfusion; transfusion reaction; melena/hematochezia; easy bruising; bleeding problems; syncope; dizziness; muscle weakness; chronic pain; hard of hearing; vision loss; heartburn; nausea; dysphagia; dentures/partials; abdominal pain; diaphoresis; no unexpected weight change PAT Summary and Plans Cardiac risk classification of planned procedure: intermediate cardiac risk. Additional comments: Aleah Gerber is a 62 y.o. female who is being evaluated prior to undergoing anintermediate cardiac risk surgery. Revised Cardiac Risk Index factors are) for a total RCRI of 0 out of 6. Functional capacity is s (specifically:states able to go up 1/2 flight of stairs without SOB) . Obstructive sleep apnea (VIOLETTE) screening status is STOP-Bang=5 suggesting moderate risk for VIOLETTE, bicarbonate value pending. The patient is at elevated risk for [...] Type and Screen only Pending labs/tests include: CBC, BMP and T&S Preoperative evaluation performed by Bettina Morales NP on 12/10/17 at 3:00 PM.. Follow up note Labs reviewed and are without significant findings. CPAP process complete. Follow-up completed by: Ya Byrne NP on 12/11/17 at 7:27 AM Patient Active Problem List Diagnosis ??? Malignant neoplasm of upper-inner quadrant of left breast in female, estrogen receptor negative(CMS/HCC) ??? Malignant neoplasm of descending colon (CMS/HCC) ??? Malignant neoplasm of colon (CMS/HCC) Past Medical History: Diagnosis Date ??? [...] ??? INCONTINENCE SURGERY 2007 ??? TUBAL LIGATION 1991 OB History No data available Allergies Allergen Reactions ??? Tetanus Vaccines And Toxoid Swelling and Rash HOME MEDICATIONS : ALPRAZolam (XANAX) 0.25 mg tablet BREO ELLIPTA 100-25 mcg/dose diskus inhaler cholecalciferol (VITAMIN D3) 2,000 unit capsule metroNIDAZOLE (FLAGYL) 500 mg tablet neomycin (MYCIFRADIN) 500 mg tablet ondansetron (ZOFRAN) 8 mg tablet sertraline (ZOLOFT) 50 mg tablet diazePAM (VALIUM) 5 mg tablet Current Outpatient Prescriptions: ??? ALPRAZolam (XANAX) 0.25 mg tablet ??? BREO ELLIPTA 100-25 mcg/dose diskus inhaler ??? cholecalciferol (VITAMIN D3) 2,000 unit capsule ??? metroNIDAZOLE (FLAGYL) 500 mg tablet ??? neomycin (MYCIFRADIN) 500 mg tablet ??? ondansetron (ZOFRAN) 8 mg tablet ??? sertraline (ZOLOFT) 50 mg tablet Social History Smoking Status ??? Former Smoker ??? Start date: 1972 ??? Quit date: 2015 Smokeless Tobacco ??? Never Used Alcohol Use No Comment: socially Drug Use No Family History Problem Relation Age of Onset ??? Prostate cancer Father 60 ??? Pancreatic cancer Sister 40 ??? Liver cancer Maternal Grandmother 80 PAT Physical Exam Airway Exam: Mallampati: II Cervical ROM: FROM TM distance: >4 Cardiovascular Exam: Rate: regular Rhythm: regular Pulmonary Exam: LCTA, bilat EENT Exam: trachea midline Dental Exam: Appears intact Skin Exam: Skin is warm and dry. Abdominal exam: Abdomen is soft. Bowel sounds are present. Current state: Patient's current state is cooperative. (Admits to occasional poor short term memory.) Vitals: 12/10/17 1431 12/10/17 1432 BP: 139/71 148/72 Pulse: 60 Resp: 18 Relevant diagnostics: ECG(s): 12/10/17: EKG: Sinus bradycardia; minimal voltage criteria for LVH, may be normal variant. PT: No results found for requested labs [...] requested labs within last 720 hours. Creatinine: 11/25/2017: 1.0 mg/dL STOP-Bang Total Score: 5 DOS Physical Exam Medical history, medications, and allergies reviewed. Attestation: I endorse the findings of the anesthesia pre-evaluation assessment dated: 12/10/2017. Airway Exam: Mallampati: II Cervical ROM: FROM TM distance: normal Jaw ROM: full Cardiovascular Exam: Rate: regular Rhythm: regular Pulmonary Exam: LCTA, bilat Dental Exam: Appears intact Current state: Patient's current state is cooperative. Anesthesia Plan ASA 2 My patient is approved for the Anesthesia Controlled Medication protocol when under care of a CHANGE MANAGEMENT COORDINATOR Planned anesthesia: General and regional for postop pain per surgeon request Induction: Induction: intravenous. Postoperative Plan: Postoperative administration opioids intended. No postoperative mechanical ventilation intended. Informed Consent: Discussed plan with CHANGE MANAGEMENT COORDINATOR. Anesthesia plan and risks discussed with patient. [...] Procedure Name Priority Date/Time Associated Diagnosis Comments OR AN PROCEDURE PLACEHOLDER Routine 12/27/2017 3:05 PM CDT Procedure Note - Anuja Olsen CRNA - 12/27/2017 3:05 PM CDTThis note is in progress. Peripheral IV Catheter Patient location: OR Staff: Placed by: Anesthesiologist: HÉCTOR GRANADOS Preprocedure prep: Prep solution: alcohol PPE: gloves PIV line: Laterality: left Site: hand Catheter size: 18 g OR AN PROCEDURE PLACEHOLDER Routine 12/27/2017 2:54 PM CDT Procedure Note - Anuja Olsen CRNA - 12/27/2017 2:54 PM CDTThis note is in progress. Airway Patient location: OR Urgency: elective Indications for airway management: anesthesia Difficult airway: no Staff: Placed by: CHANGE MANAGEMENT COORDINATOR: ANUJA OLSEN Airway prep: Preoxygenated: yes Patient position: ramp and sniffing Mask difficulty assessment: 2 - vent by mask + OA or adjuvant Sedation level during airway: GA Final airway details: Final airway type: endotracheal airway Tube type: ETT ETT size: 7.0 mm Cuffed: yes Technique used for successful ETT placement: direct laryngoscopy Devices/Methods used in placement: intubating stylet and cricoidpressure Insertion site: oral Blade type: Lauren Blade size: 3 Cormack-Lehane (direct): grade IIa - partial view of glottis Cuff volume: 5 mL Cuff inflated with: air Placement verified by: auscultation and CO2 detection Airway secured with: silk tape Number of attempts: 1 OR AN ELECTIVE ENDOTRACHEAL AIRWAY Routine 12/27/2017 2:54 PM CDT Procedure Note - Anuja Olsen CRNA - 12/27/2017 2:54 PM CDTThis note is in progress. Airway Patient location: OR Urgency: elective Indications for airway management: anesthesia Difficult airway: no Staff: Placed by: LINDA: ANUJA OLSEN Airway prep: Preoxygenated: yes Patient position: ramp and sniffing Mask difficulty assessment: 2 - vent by mask + OA or adjuvant Sedation level during airway: GA Final airway details: Final airway type: endotracheal airway Tube type: ETT ETT size: 7.0 mm Cuffed: yes Technique used for successful ETT placement: direct laryngoscopy Devices/Methods used in placement: intubating stylet and cricoidpressure Insertion site: oral Blade type: Lauren Blade size: 3 Cormack-Lehane (direct): grade IIa - partial view of glottis Cuff volume: 5 mL Cuff inflated with: air Placement verified by: auscultation and CO2 detection Airway secured with: silk tape Number of attempts: 1 documented in this encounter Visit Diagnoses Not on filedocumented in this encounter Administered Medications Inactive Administered Medications - up to 3 most recent administrations Medication Order MAR Action Action Date Dose Rate Site albumin 5 % bottle intravenous, Continuous PRN, Starting on Sat12/27/17 at 1536, Anesthesia Intra-op New Bag 12/27/2017 3:50 PM CDT New Bag 12/27/2017 3:36 PM CDT dexamethasone (DECADRON) injection Administer over 1 Minutes, As needed, Starting on Sat12/27/17 at 1450, Anesthesia Intra-op Given 12/27/2017 2:50 PM CDT 4 mg ePHEDrine injection intravenous, As needed, Starting on Sat12/27/17 at 1509, Anesthesia Intra-op Given 12/27/2017 3:09 PM CDT 10 mg ertapenem (INVanz) injection As needed, Starting on Sat12/27/17 at 1450, Anesthesia Intra-op Given 12/27/2017 2:50 PM CDT 1,000 mg fentaNYL (SUBLIMAZE) preservative free injection intravenous, As needed, Starting on Sat12/27/17 at 1428, Anesthesia Intra-op Given 12/27/2017 3:58 PM CDT 50 mcg Given 12/27/2017 3:50 PM CDT 50 mcg Given 12/27/2017 3:18 PM CDT 50 mcg glycopyrrolate (ROBINUL) injection intravenous, As needed, Starting on Sat12/27/17 at 1438, Anesthesia Intra-op Given 12/27/2017 4:49 PM CDT 0.8 mg Given 12/27/2017 2:38 PM CDT 0.2 mg HYDROmorphone (DILAUDID) injection intravenous, As needed, Starting on Sat12/27/17 at 1649, Anesthesia Intra-op Given 12/27/2017 5:10 PM CDT 0.4 mg Given 12/27/2017 5:01 PM CDT 0.4 mg Given 12/27/2017 4:56 PM CDT 0.4 mg Lactated Ringer's (LR) infusion 30 mL/hr, intravenous, Continuous, Starting on Sat12/27/17 at 1430, For 365 days New Bag 12/27/2017 4:55 PM CDT Rate/Dose Verify 12/27/2017 2:23 PM CDT New Bag 12/27/2017 1:51 PM CDT 30 mL/hr 30 mL/hr lidocaine PF (XYLOCAINE) 10 mg/mL (1 %) preservative free injection As needed, Starting on Sat12/27/17 at 1428, Anesthesia Intra-op Given 12/27/2017 2:28 PM CDT 100 mg midazolam (VERSED) preservative free injection intravenous, As needed, Starting on Sat12/27/17 at 1423, Anesthesia Intra-op Given 12/27/2017 2:23 PM CDT 2 mg neostigmine (PROSTIGMIN) injection intravenous, As needed, Starting on Sat12/27/17 at 1649, Anesthesia Intra-op Given 12/27/2017 4:49 PM CDT 4 mg ondansetron (ZOFRAN) injection intravenous, As needed, nausea, vomiting, Starting on Sat12/27/17 at 1649, Anesthesia Intra-op Given 12/27/2017 4:49 PM CDT 4 mg phenylephrine (GEORGIA-SYNEPHRINE) 0.5 mg/5 mL (100 mcg/mL) premix syringe in 0.9% sodium chloride intravenous, As needed, Starting on Sat12/27/17 at 1438, Anesthesia Intra-op Given 12/27/2017 2:38 PM CDT 100 mcg phenylephrine (GEORGIA-SYNEPHRINE) 25,000 mcg in sodium chloride 0.9% 250 mL (100 mcg/mL) infusion Continuous PRN, Starting on Sat12/27/17 at 1440, Anesthesia Intra-op Restarted 12/27/2017 4:10 PM CDT 0.2 mcg/kg/min 13.76 mL/hr Rate/Dose Change 12/27/2017 3:40 PM CDT 0.3 mcg/kg/min 20. 6 mL/hr Rate/Dose Change 12/27/2017 3:29 PM CDT 0.4 mcg/kg/min 27. 5 mL/hr propofol (DIPRIVAN) IV intravenous, As needed, Starting on Sat12/27/17 at 1428, Anesthesia Intra-op Given 12/27/2017 2:28 PM CDT 130 mg rocuronium (ZEMURON) injection intravenous, As needed, Starting on Sat12/27/17 at 1428, Anesthesia Intra-op Given 12/27/2017 3:58 PM CDT 20 mg Given 12/27/2017 2:28 PM CDT 50 mg sodium chloride 0.9% infusion Continuous PRN, Starting on Sat12/27/17 at 1431, Anesthesia Intra-op New Bag 12/27/2017 2:31 PM CDT documented in this encounter Orders Procedures Count Last Ordered Date First Orde red Date ANESTHESIA INTUBATION 1 12/27/2017 PERIPHERAL LINE 1 12/27/2017 documented in this encounter Care Teams Circus Rider Relationship Specialty Start Date End Date Ravi Smith MD PCP - General 11/04/17 09/27/21 Aft, Kianna Machado MD PhD [address] [place] [address] Surgeon Surgical Oncology 11/22/17 Santiago Gilbert MD [address] [place] [address] Systems Developer Gastroenterology 11/22/17 documented as of this encounter
--- OUTSIDE RECORDS SUMMARY | 2024-04-24 13:53 | XMS_ITS | Encounter Summary ---
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 Name Role Phone Ravi Smith MD Primary Care Provider [phone] Kianna Bunch MD PhD Unavailable [phone] Santiago Gilbert MD Unavailable [phone] Encounter Details Date Type Department Care Team (Late st Contact Info) Description 01/14/2018 2:26 PM CDT - 01/14/2018 4:11 PM CDT Surgery [facility] [address] [place] [id number] Kianna Bunch MD PhD [address] [place] [id number] Biopsy Breast Needle Localization Surgery Details Date/Time Status Location OR Service Patient Class Case Cl ass Case Type Trauma Case? 01/14/2018 2:26 PM Posted [facility] CAM OR POD 4 F General Surgery Outpatient Elective Panel 1 Procedure LRB Anes Op Region Wound Class Comments Biopsy Breast Needle Localization Left Monitor Anesthesia Care Breast Class I - Clean Biopsy [place] Lymph Node With Lymphoscintigraphy Left General Chest Class I - Clean Insertion Port A Cath Right Monitor An esthesia Care Chest Class I - Clean Surgeon Surgeon Role Service Panel Allyson Ga MD Resident - Assisting 1 Aft, Kianna Machado MD PhD Primary General Surgery 1 Special Needs Navigator neoprobe documented in this encounter Social History Tobacco Use Types Packs/Day Years Used Date Smoking Tobacco: Former Cigarettes 1 973 - 2016 Smokeless Tobacco: Never Alcohol Use Standard Drinks/Week Comments Yes 0 (1 standard drink = 0.6 oz pur e alcohol) socially Comments No Sex and Gender Information Value Date Recorded Sex Assigned at Not on file 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 Gender Identity Not on file Sexual Orientation Not on file documented as of this encounter Last Filed Vital Signs Vital Sign Reading Time Taken Comments Blood Pressure 144/72 01/14/2018 7:11 AM CDT Pulse 68 01/14/2018 7:30 AM CDT Temperature 36.4 ??C (97.5 ??F) 01/14/2018 7:11 AM CD T Respiratory Rate 16 01/14/2018 7:30 AM CDT Oxygen Saturation 99% 01/14/2018 7:30 AM CDT Inhaled Oxygen Concentration - - Weight - - Height - - Body Mass Index - - documented in this encounter Discharge Instructions * Discharge Instructions* Kenisha Yang, LYDIA - 01/14/2018 6:11 PM CDT Restart Lovenox tomorrow 01/15/18 Start antibiotic tonight documented in this encounter Medications at Time [...] Refills Last Filled Start Date End Date cephalexin (KEFLEX) 500 mg capsule Take 1 capsule (500 mg total) by mouth 2 (two) times a day for 5 days. 10 capsule 01/14/2018 8 documented in this encounter Discharge Disposition Disposition Code Departure Means Destination Discharge to home or self care documented in this encounter H&P Notes * Allyson Ga MD - 01/14/2018 8:28 AM CDT General H&P Subjective Patient is a 62 y.o. female with chief complaint of left breast cancer. HPI: Ms. Gerber is a 62 y.o. woman referred by Ravi Smith MD presents for evaluation of her new diagnosis of left breast cancer. ?? The patient has a history of newly diagnosed colorectal cancer, and during a staging abdominal/pelvic CT scan in October 2017, an abnormal appearing mass in the left breast was found. She underwent additional imaging with an mammogram and ultrasound, which returned findings suspicious for a malignancyon 11/05. Ultimately, a core biopsy was performed on 11/12, which confirmed an invasive breast cancer pathologically confirmed to be a 14mm triple negative IDC. ?? Patient states that since she has fibroids she has always felt lumps and bumps in her breasts. She does state that her left breast has been a bit more tender over the last several months, and she has had two episodes of nipple discharge. The first episode was in June with a clear discharge, and then more recently, it was a bloody discharge. She denies any change in the skin of her breasts. She has no other systemic complaints and otherwise feels well today. ?? She had a biopsy-confirmed benign breast mass in the right breast in the . She underwent left hemicolectomy on 12/27/17. Past Medical History: Diagnosis Date ??? Anemia [...] REPAIR Right 1969 ??? TUBAL LIGATION 1991 Prescriptions Prior to Admission Medication Sig Dispense Refill Last Dose ??? ALPRAZolam (XANAX) 0.25 mg tablet 3 (three) times a day as needed for anxiety. 01/13/2018 at Unknown time ??? BREO ELLIPTA 100-25 mcg/dose diskus inhaler Inhale every evening. 1 01/13/2018 at Unknown time ??? cholecalciferol (VITAMIN D3) 2,000 unit capsule nightly. 01/13/2018 at Unknown time ??? enoxaparin (LOVENOX) 40 mg/0.4 mL syringe Inject 0.4 mL (40 mg total) under the skin daily for 21 days. 8.4 mL 0 01/13/2018 at Unknown time ??? ondansetron (ZOFRAN) 8 mg tablet Take 1 tablet at 11:00AM with Miralax prep. Take 1 tablet every 8 hours for nausea. 2 tablet 0 Past Week at Unknown time ??? polyethylene glycol (MIRALAX) 17 gram packet Take 1 packet (17 g total) by mouth 2 (two) times a day as needed (constipation). 30 packet 0 Past Week at Unknown time ??? sertraline (ZOLOFT) 50 mg tablet nightly. 01/13/2018 at Unknown time ??? acetaminophen (TYLENOL) 325 mg tablet Take 2 tablets (650 mg total) by mouth every 6 (six) hours as needed for pain. 30 tablet 0 Unknown at Unknown time ??? bisacodyl EC (DULCOLAX EC) 5 mg EC tablet Take 1 tablet (5 mg total) by mouth 2 (two) times a day as needed for constipation. 30 tablet 0 Unknown at Unknown time ??? psyllium 0.52 gram capsule Take 1 capsule (0.52 g total) by mouth daily. In case of constipation 30 capsule 11 Unknown at Unknown time Allergies Allergen Reactions ??? Tetanus Vaccines And Toxoid Swelling and Rash Social History Substance Use Topics ??? Smoking status: Former Smoker Start date: 1972 Quit date: 2015 ??? Smokeless tobacco: Never Used ??? Alcohol use Yes Comment: socially Family History Problem Relation Age of Onset ??? Prostate cancer Father 60 ??? Pancreatic cancer Sister 40 ??? Liver cancer Maternal Grandmother 80 ??? Heart attack Mother 70 Review of Systems ROS: Pertinent items are noted in HPI. A comprehensive review of systems was negative. Objective Vitals: Arrival Vitals [01/14/18 0711] Temp 36.4 ??C (97.5 ??F) Pulse 61 Resp 16 BP 144/72 SpO2 Temp src Temporal Heart Rate Source Monitor Patient Position BP Location FiO2 (%) 24hr Min/Max: Temp Min: 36.4 ??C (97.5 ??F) Max: 36.4 ??C (97.5 ??F) Pulse Min: 61 Max: 61 BP Min: 144/72 Max: 144/72 Resp Min: 16 Max: 16 Most Recent : Vitals: 01/14/18 0711 BP: 144/72 Pulse: 61 Resp: 16 Temp: 36.4 ??C (97.5 ??F) Physical Exam PHYSICAL EXAMINATION: GENERAL: She is a well-developed, well-nourished woman in no acute distress. HEENT: Within normal limits. NECK: Neck is supple without lymphadenopathy or thyromegaly. LUNGS: Clear. HEART: Regular. ABDOMEN: Soft without organomegaly. EXTREMITIES: Warm without edema. NEUROLOGICAL: She is alert and oriented x 3. ?? BREAST EXAMINATION: Bilateral breast examination reveals normal ptotic breasts bilaterally. There are no palpable masses in either breast, nor skin changes nor nipple discharge. Assessment Active Problems: No Active Problems: There are no active problems currently on the Problem List. Please update the Problem List and refresh. ASSESSMENT: Left breast cancer Plan PLAN: To OR for left breast excisional biopsy with wire localization, left sentinel lymph node biopsy, and right port placement Allyson Ga MD Breast Surgical Oncology Fellow Pager #: [phone] 01/14/2018 8:31 AM Cosigned by Kianna Bunch MD PhD at 01/14/2018 11:29 AM CDT documented in this encounter Miscellaneous Notes * Perioperative Nursing Note - Kenisha Yang, RN - 01/14/2018 6:30 PM CDT Wet read called: no pneumo, line in good placement. Result called to Deborah COY surgery resident. * Perioperative Nursing Note - Kenisha Yang RN - 01/14/2018 5:58 PM CDT cxr completed, surgery resident at looking at it. Waiting for radiology to call with wet read. * Perioperative Nursing Note - Kenisha Yang RN - 01/14/2018 5:39 PM CDT Port cxr here but machine not working, tech calling for another machine * Op Note - Kianna Bunch MD PhD - 01/14/2018 3:32 PM CDT Operative Report SURGEON: Kianna Bunch MD PhD SURGICAL TEAM: Surgeon(s) and Role: * Allyson Ga MD - Resident - Assisting * Kianna Bunch MD PhD - Primary DATE OF SURGERY : 01/14/2018 PREOPERATIVE DIAGNOSIS: Pre-op Diagnosis * Malignant neoplasm of left female breast, unspecified estrogen receptor status, unspecified site of breast (CMS/HCC) [C50.912] POSTOPERATIVE DIAGNOSIS: Post-op Diagnosis * Malignant neoplasm of left female breast, unspecified estrogen receptor status, unspecified site of breast (CMS/HCC) [C50.912] PROCEDURE: Biopsy Breast Needle Localization partial mastectomy (L), Biopsy [place] Lymph Node With Lymphoscintigraphy (L), Insertion Port A Cath (R) with ultrasound and fluroscopy ANESTHESIA: general INDICATION FOR PROCEDURE: Aleah Gerber is a 62 y.o. woman who was found to have a left breast cancer in the lower inner quadrant. I felt that she was an acceptable candidate for attempted breast conservation for which she washighly motivated. She presents today for that purpose as well as a sentinel node biopsy for axillary staging. In addition she was to receive adjuvant chemotherapy and had a Port-A-Cath placed. FINDINGS The patient had a left sentinel node procedure which identified several sentinel lymph nodes. They were grossly normal. The left partial mastectomy was performed with needle localization. Specimen radiograph demonstrated that the cancer was centrally located within the specimen. The port was found to flush and aspirate easily. OPERATIVE DETAILS Aleah Gerber was first taken to the Nuclear Medicine Department where she underwent radioactive colloid injection and lymphoscintigraphy. She was then taken to the [facility] where she underwent needle localization of her cancer. After obtaining informed consent, the patient was brought to the operating room placed on procedure table in the supine position. ??A time-out was performed verifying the correct patient, correct procedure,??correct positioning, correct special equipment in the room. ??Preoperative antibiotics were given and SCDs were placed on the patient's legs for thromboprophylaxis. General anesthesia was induced ?? The patient was prepped and draped in the standard surgical fashion.The right internal jugular vein was accessed with attempts x 1 under ultrasound guidance and a wire passed. Spot fluoroscopy verified the wire within the central venoussystem/right heart. The wire was secured to the drape. We next turned our attention to creating a port pocket on the anterior chest of the same side, 2 finger breaths below the clavicle. An incision wasmade with a 15 blade and then carried down through subcutaneous tissues using Bovie electrocautery.The port was placed in the port pocket and secured with 3-0 prolene sutures. The catheter was tunneled from the port pocket to the incision on her neck where the wire entered into the internal jugular vein. We then fed the dilator and sheath over the wire under fluoroscopic guidance. The wire and dilator were removed. The catheter was fed into the sheath and the sheath was removed. Confirmation of the tip of the catheter at the atrial caval junction was obtained with fluoroscopy. The port was found to flush and aspirate easily. The wounds were copiously irrigated with Ancef containing saline.??Local anesthetic was injected??into the neck and port pocket incisions. The incisions were closed with 3-0 Vicryl to approximate the dermaledge, 4 Monocryl to approximate the subcuticular edge. A single stitch of Monocryl was placed at the neck incision and then Exofin was applied to both incisions. Next 5 mL of Lymphazurin blue dye was injected in the left retroareolar breast and a 5 minute breast massage was performed. A curvilinear incision was made at the lower edge of the axillary hairline and carried down through the dermis with electrocautery. The subcutaneous tissues were opened and the clavipectoral fascia was incised. Upon incising the clavipectoral fascia, we immediately encountered a blue lymphatic which we followed down to blue and radioactive lymph nodes. These were excised and passed off the field. No other blue lymphnodes were identified and only background counts were obtained with the navigator probe. No other palpable adenopathy was appreciated. Attention was then turned to the wound. Aggressive hemostasis was obtained with electrocautery. The wound was irrigated with copious amounts of sterile saline. The deep dermal layer was then reapproximated with interrupted 3-0 Vicryl stitches. The skin was reapproximated with a running subcuticular using 4-0 Monocryl. We then directed our attention to the left breast and partial mastectomy. The wire was noted to be entering medially. Therefore a incision was made near the entry site of the wire and carried down to the dermis with electrocautery. A superior flap was created above the level of the wire and was taken down posterior to it. An inferior flap was created below the level of the wire and was also taken down posterior to it. Once the superior andinferior flaps were created the medial lateral flaps were made to join these 2 troughs. Once all 4 flaps were created the breast tissue was removed from the posterior attachments using electrocautery. Of note, the dissection was carried down to the pectoralis fascia. The specimen was then marked with a short stitch on the superior margin and a long stitch on the lateral margin and was sent back to the Breast [facility]. Specimen radiograph demonstrated that the cancer was centrally located within the specimen. Attention was then turned to the wound. Aggressive hemostasis was obtained with electrocautery. The wound was irrigated with copious amounts of sterile saline. The deep dermal layer was then reapproximated with interrupted 3-0 Vicryl stitches. The skin was reapproximated with a running subcuticular using 4-0 Monocryl. Surgical glue dressing was applied. The patient tolerated this procedure well was awakened and transferred to the recovery room. I was present for the critical portion of the procedure which was placement of the port removal of the breast tissue and the sentinel lymph node was immediately available for the closure. ?? Estimated Blood Loss: No blood loss documented. Urine output : Not measured Intraoperative Fluids: See record Blood/Blood Products Transfused: 0 mls Specimens: ID Type Source Tests Collected by Time Destination A : Left axillary sentinel lymph nodes Tissue Lymph node, sentinel breast SURGICAL PATHOLOGY Kianna Bunch MD PhD 01/14/20181618 B : left breast cancer short stitch superior long stitch lateral Tissue Breast, excisional biopsy/ partial mastectomy SURGICAL PATHOLOGY Kianna Bunch MD PhD 01/14/2018 1628 Complications: None Condition on Discharge from the operating room was stable Kianna Bunch MD PhD Date: 01/16/2018 Time: 1:06 PM TEACHING ATTESTATION : I was present and I participated in all portions of the procedure except Theclosure and Dr. Dillon was immediately available for all remaining portions of the case. * Brief Op Note - Allyson Ga MD - 01/14/2018 3:32 PM CDT Operative Progress Note Attending Surgeon: Kianna Bunch MD PhD Assisting: Allyson Ga MD (fellow) Surgical Team: Multiple Resaw Operator: Cat Boss RN Multiple Resaw Operator Relief: Maldonado Parks RN Scrub: Omayra Guzmán RN DATE OF SURGERY : 01/14/2018 Preoperative Diagnosis: Pre-op Diagnosis * Malignant neoplasm of left female breast, unspecified estrogen receptor status, unspecified site of breast (CMS/HCC) [C50.912] Postoperative Diagnosis: Post-op Diagnosis * Malignant neoplasm of left female breast, unspecified estrogen receptor status, unspecified site of breast (CMS/HCC) [C50.912] Procedure: Procedure(s): Biopsy Breast Needle Localization Biopsy [place] Lymph Node With Lymphoscintigraphy Insertion Port A Cath Operative Findings: Clip and wire in specimen xray Estimated Blood Loss: No blood loss documented. Intraoperative Fluids: 800 mls Specimens: ID Type Source Tests Collected by Time A : Left axillary sentinel lymph nodes Tissue Lymph node, sentinel breast SURGICAL PATHOLOGY Kianna Bunch MD PhD 01/14/20181618 B : left breast cancer short stitch superior long stitch lateral Tissue Breast, excisional biopsy/ partial mastectomy SURGICAL PATHOLOGY Kianna Bunch MD PhD 01/14/2018 1628 Implants: Implant Name Type Inv. Item Serial No. Piece Work Checker Lot No. LRB No. Used [employer] [id number] POWERPORT [employer] AIRGUARD 8FR 1 LUMEN LIGHTWEIGHT INTERMEDIATE LATEX FREE - [id number] Other - see comments [employer] [id number] P[employer] AIRGUARD 8FR 1 LUMEN LIGHTWEIGHT INTERMEDIATE LATEX FREE [employer] [id number] Right 1 Blood/Blood Products Transfused: 0 mls Complications: None Condition on Discharge from the operating room was stable Allyson Ga MD Date: 01/14/2018 Time: 5:26 PM No Resident involved on case Cosigned by Kianna Bunch MD PhD at 01/15/2018 12:14 PM CDT * Pre-Procedure Instructions - Lori Alarcon, KAM - 01/09/2018 10:55 AM CDT [facility] Preoperative Assessment and Planning CPAP Clinic Location: [facility] The night before your surgery: * Do [...] be cared for in the hospital overnight. Instructions For Your Medications: Pre-Surgery Instructions: Medication Instructions ??? acetaminophen (TYLENOL) 325 mg tablet Take on day of surgery if needed ??? ALPRAZolam (XANAX) 0.25 mg tablet Take on day of surgery if needed ??? BREO ELLIPTA 100-25 mcg/dose diskus inhaler ??? cholecalciferol (VITAMIN D3) 2,000 unit capsule Don't take on day of surgery ??? oxyCODONE (OXY-IR) 5 mg capsule Take on day of surgery if needed ??? polyethylene glycol (MIRALAX) 17 gram packet Don't take on day of surgery ??? sertraline (ZOLOFT) 50 mg tablet Take morning of surgery ??? bisacodyl EC (DULCOLAX EC) 5 mg EC tablet Don't take on day of surgery ??? enoxaparin (LOVENOX) 40 mg/0.4 mL syringe No doses within 24 hours of surgery ??? ondansetron (ZOFRAN) 8 mg tablet Take on day of surgery if needed ??? psyllium 0.52 gram capsule Don't take on day of surgery Your surgeon will tell you IF YOU SHOULD STOP the following medications and WHEN TO STOP taking them. Do not stop taking them on your own without being told to do so: Lovenox General Instructions For Medications: ?? Stop all of these medications 5 days prior to your surgery: excedrin, motrin, advil, ibuprofen, aleve, naproxen, celebrex, celecoxib, meloxicam ?? Stop all of these medications 7-14 days prior to your surgery: Vitamin E, Fish Oil (Lovaza, [place] 3), Herbal medicines, Diet Pills ?? If you take Lovenox (enoxaparin), please do the following: On the DAY BEFORE your surgery, take your regular morning dose by 7AM even if you usually take this dose later in the morning. After thisdose, do not take any further doses before your surgery. ?? If you have pain, you may take tylenol (acetominophen). Do not take more than 6 tablets [...] bowel prep or special diet before surgery documented in this encounter Plan of Treatment Not on file documented as of this encounter Procedures Procedure Name Priority Date/Time Associated Diagnosis Comments XR CHEST 1 VIEW Critical/Life- Threatening 01/14/2018 5:52 PM CDT SURGICAL PATHOLOGY Routine 01/14/2018 4: 19 PM CDT Malignant neoplasm of left female breast, unspecified estrogen receptor status, unspecified site of breast (CMS/HCC) FL FLUOROSCOPY < 1 HOUR IP Routine 01/15/20 18 4:01 PM CDT INSERTION PORT A CATH 01/14/2018 2:52 PM CDT Malignant neoplasm of left female breast, unspecified estrogen receptor status, unspecified site of breast (CMS/HCC) Special Needs Navigator neoprobe BIOPSY SENTINEL LYMPH NODE WITH LYMPHOSCINTIGRAPHY 01/14/2018 2:52 PM CDT Malignant neoplasm of left female breast, unspecified estrogen receptor status, unspecified site of breast (CMS/HCC) Special Needs Navigator neoprobe BIOPSY BREAST NEEDLE LOCALIZATION 01/14/2018 2:52 PM CDT Malignant neoplasm of left female breast, unspecified estrogen receptor status, unspecified site of breast (CMS/HCC) Special Needs Navigator neoprobe documented in this encounter Results * XR Chest 1 View (01/14/2018 5:52 PM CDT) Anatomical Region Laterality Modality Body, Chest N/A Computed Radiogr aphy 01/14/2018 6:22 PM CDT Impressions 01/15/2018 10:17 AM CDT Single view of the chest is submitted for interpretation without available comparison. ??Right internal jugular port catheter is seen terminating in the right atrium. ??There is no pneumothorax or pleural effusion. ??The lungs are clear. ??The heart size is normal. ??hair is seen overlying the left lower chest and right neck. The Non Critical results were discussed with Lyric Stewart RN by Dr. Enriquez on 01/14/2018 at 6:18 PM Electronically signed by: Willie Bullock M.D. Narrative 01/15/2018 10:17 AM CDT EXAMINATION: 1 view chest radiograph Procedure Note Willie Bullock MD - 01/15/2018 EXAMINATION: 1 view chest radiograph IMPRESSION: Single view of the chest is submitted for interpretation without available comparison. Right internal jugular port catheter is seen terminating in the right atrium. There is no pneumothorax or pleural effusion. The lungs are clear. The heart size is normal. hair is seen overlying the left lower chest and right neck. The Non Critical results were discussed with Lyric Stewart RN by Dr. Enriquez on 01/14/2018 at 6:18 PM Electronically signed by: Willie Bullock M.D. us Kianna Bunch MD PhD IMG XR PROCEDURES Final Re sult * Surgical pathology (01/14/2018 4:19 PM CDT) Tissue (Lymph node, sentinel breast) 01/14/2018 4:19 PM CDT Tissue (Breast, excisional biopsy/ partial mastectomy) 01/14/2018 4:28 PM CDT Comment:Breast Center Narrative PATHOLOGY [facility] - 01/17/2018 4:28 PM CDT EPIC results best viewed via link to PDF [facility] [place] [address] SURGICAL PATHOLOGY REPORT FINAL Patient Name: ?? ALEAH GERBER Gender: ??F : ??1955 (Age: 62) Address: ??[address], [place] ??[address] Hospital #: ??[id number] Taken:01/14/2018 Received:01/14/2018 Reported: 01/17/2018 Patient Type: [facility] SDS ?? Service: Surgery Location: [facility] Physician(s): ??Hortencia Warren M.D. Diagnosis: A. Lymph nodes, left axilla sentinel, excisional biopsy: ? -No evidence of malignancy in three lymph nodes (0/3) B. Breast, left, partial mastectomy: ? - Invasive ductal carcinoma ? - Unifocal ? - Greatest gross dimension = approximately 3.5 cm - Histologic grade = 3/3 (score: tub3 + nuc3 + mit3 = 01/12) by ESBR criteria - Lymphovascular invasion is not identified - Invasive carcinoma present at the posterior margin (1 cm in length) (see comment) ?- Ductal carcinoma in situ (DCIS) ? - Nuclear grade = 3/3 by SBR criteria (high grade) - Cribriform type ?? - Surgical margins negative, DCIS 9 mm from anterior and posterior margins ? - Biopsy site changes ? - Fibrocystic change including apocrine metaplasia and cyst formation ? - Microcalcifications associated benign breast tissue - See synoptic report /01/17/2018 14:42 By this signature, I attest that the above diagnosis is based upon my personal examination of the slides(and/or other material indicated in the diagnosis). Zaida Hernandez MD PhD Report Electronically Reviewed and Signed Out By ??Zaida Hernandez MD PhD 01/17/2018 16:28:19 Intraoperative Consultation: Collected at 1628 on 01/14/18, and brought to the frozen section area at 1723 on 01/14/18, is a specimen labeled left breast cancer consisting of an oriented piece of breast tissue with localization wire measuring 7.0 cm superior to inferior x 7.0 cm medial to lateral x 3.0 cm anterior to posterior. ??Ink is applied as: posterior - black; anterior - yellow; superior - blue; inferior - green. ??Sectioned to show a pink yao firm central lesion. Formalin fixation time starts at 1730 on 01/14/18. ??All for permanents, by Tito Jones MLT, PA ([facility]) Microscopic Description and Comment: The result of invasive carcinoma present at the posterior margin was communicated with Dr. Bunch by Dr. Hernandez via email on 01/17/2018. ??The biomarkers were performed on the prior biopsy specimen. ?? Vania Simmons MD History: Left breast cancer. Specimen(s) Received: A: Left axillary sentinel lymph nodes B: Left breast cancer short stitch superior long stitch lateral Gross Description: The specimens are received in two formalin filled containers each labeled with the patient's name. ? A ?? Designated left axillary sentinel lymph nodes is a 5 x 3 x 2.5 cm fragment of fibroadipose tissue. ??Three axillary lymph nodes are identified grossly ranging from 0.7 to 5.3 cm in greatest dimension. ??The axillary lymph nodes are submitted entirely as the following: A1 one lymph node, bisected, A2 one lymph node candidate, serially sectioned, A3-A6 one lymph node candidate serially sectioned. Jar 1. ??Total formalin fixation time 28 hours 40 minutes. B. ??Designated left breast cancer short stitch superior long stitch lateral is a partial mastectomy specimen with measurements and inking as described in intraoperative. ??A 3 (S-I) x 1.7 (A-P) x 4.5 (M-L) cm well-circumscribed firm tovar lesion is present in the center aspect of the specimen with a biopsy clip and needle localization wire. ??The lesion is abutting the posterior margin, 0.2 cm from the anterior margin, 1 cm from the superior margin, 1 cm from the inferior margin, 0.5 cm the lateral edge, and 2 cm from the medial edge. ??Policy Value Calculator sections as follows: B1-B2 closest medial edge, perpendicularly sectioned, B3 unremarkable tissue medial to lesion, B4 most medial aspect of the lesion, B5 lesion to closest posterior margin, B6-B8 complete cross section of lesion, B9-B12 complete cross section of lesion, B13 lesion, B14 most lateral aspect of lesion (~ 1 cm lateral to B13), B15 grossly unremarkable tissue lateral to lesion, B16-B17 lateral edge perpendicularly sectioned closest to lesion. Total formalin fixation time 27 hours 30 minutes. ??Jar 2. All for permanents by WOJCIECH. [email or web address]/01/15/2018 16:17 Vania Simmons MD ? CANCER CASE SUMMARY FOR INVASIVE CARCINOMA OF THE BREAST Procedure: ?Excision with wire-guided localization ? Lymph node sampling: ?[place] lymph node(s) ? Tumor site invasive carcinoma: ?9 o'clock ? 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 Tumor size: ?Greatest dimension: 35mm ? Histologic grade (Elk Histologic Score): ?Tubular differentiation: ??Score 3 ? Nuclear pleomorphism: ??Score 3 ? Mitotic rate: Score 3 ? Overall grade: Grade 3: scores of 8 or 9 ? Tumor focality: ?Single focus of invasive carcinoma ? 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 Estimated size (extent) of DCIS (greatest dimension using gross & microscopic evaluation): at least 3 mm ? Architectural patterns: Cribriform ? Nuclear grade: Grade 3 (high) ? Necrosis: Present, focal (small foci or single cell necrosis) ? Lobular carcinoma in situ (LCIS): ?Not identified ? Margins for invasive carcinoma: ?Margin(s) positive for invasive carcinoma ?Margin: Posterior margin (inked black) ? 1 cm ? Margins for DCIS: ?Margins uninvolved by DCIS ?Distance from closest margin: 9 mm ?Margin: anterior and posterior margins ? Lymph nodes: ?Total number of lymph nodes examined (sentinel and nonsentinel): 3 ? Number of sentinel nodes examined: 3 ? Lymph node involvement: ?All lymph nodes are negative ? [place] node evaluation: ?H&E, multiple levels ? Response to presurgical therapy: ?No known presurgical therapy Lymphovascular Invasion: ?Not identified ? Pathologic Stage Classification (pTNM, AJCC 8th Edition): Primary tumor (invasive carcinoma) (pT): ? pT2: Tumor >20 mm but <=50 mm in greatest dimension ? Regional Lymph Nodes (pN): ?Modifier: ??(sn): Only sentinel node(s) evaluated. ? Category (pN): ?pN0: No regional lymph node metastasis identified or ITCs only ? Microcalcifications: ?Present in nonneoplastic tissue ? The pathologic stage assigned here should be regarded as provisional, and may change after integration of clinical data not provided with this report. CAP VERSION: InvasiveBreast 4.0.0.0 By this signature, I attest that the above diagnosis is based upon my personal examination of the slides(and/or other material). The performance characteristics of some immunohistochemical stains, fluorescence in-situ hybridization tests and immunophenotyping by flow cytometry cited in this report (if any) were determined by the Surgical Pathology Department at [facility] as part of an ongoing director supplier quality program and in compliance with federally mandated [...] determined by the Surgical Pathology Department of [facility]. ??It has not been cleared or approved by the U. S. Food and Drug Administration. IMAGES AND SCANNED DOCUMENTS, IF INCLUDED, ONLY VIEWABLE IN PDF VERSION OF REPORT Kianna Bunch MD PhD LAB PATHOLOGY ORDERABLES F inal Result PATHOLOGY [facility] 3rd Floor [place], [place] [phone] * [place] Fluoroscopy < 1 Hour (01/14/2018 4:01 PM CDT) Narrative RAD[facility]PACS[facility] - 01/14/2018 4:04 PM CDT The images from this study are not interpreted by Radiology. ??Please refer to the physician's procedure / OR operative note. Kianna Bunch MD PhD IMG FLUOROSCOPY PROCEDURES Final Result Performing Organization Address [facility] Co de Phone Number RAD[facility]PACS[facility] documented in this encounter Visit Diagnoses Diagnosis Malignant neoplasm of left female breast, unspecified estrogen receptor status, unspecified site of breast (HCC) Malignant neoplasm of left female breast, unspecified estrogen receptor status, unspecified site of breast (HCC) documented in this encounter Administered Medications Inactive Administered Medications - up to 3 most recent administrations Medication Order MAR Action Action Date Dose Rate Site bupivacaine (MARCAINE) 0.5 % (5 mg/mL) preservative free injection As needed, Starting on Sat01/14/18 at 1659, Intra-Op Given 01/14/2018 4:59 PM CDT 20 mL ceFAZolin (ANCEF) injection As needed, Starting on Sat01/14/18 at 1532, Intra-Op Given 01/14/2018 3:32 PM CDT 1,000 mg fentaNYL (SUBLIMAZE) preservative free injection 50 mcg 50 mcg, intravenous, Every 10 min PRN, 1st line for pain, Starting on Sat01/14/18 at 1725, Phase I, Notify Anesthesiologist if total PACU dose reaches 100 mcg and pain score 5/10 or more., Indications: PainIndications:Pain Given 01/14/2018 5:35 PM CDT 50 mcg heparin lock flush (porcine) 10 unit/mL injection As needed, Starting on Sat01/14/18 at 1541, Intra-Op Given 01/14/2018 3:41 PM CDT 5 mL HYDROmorphone (DILAUDID) injection 0.2 mg 0.2 mg, intravenous, Every 10 min PRN, 1st line for pain, Starting on Sat01/14/18 at 1725, Phase I, Switch to 2nd line analgesic order if pain is uncontrolled or increasing after 2 doses. Notify Anesthesiologist if total PACU dose reaches 2 mg and pain score 5/10 or more., Indications: PainIndications:Pain Given 01/14/2018 6:53 PM CDT 0.2 mg Given 01/14/2018 6:41 PM CDT 0.2 mg Given 01/14/2018 6:18 PM CDT 0.2 mg isosulfan blue (LYMPHAZURIN) 1 % injection As needed, Starting on Sat01/14/18 at 1532, Intra-Op, Indications: Diagnostic RadiographyIndications:Diag nostic Radiography Given 01/14/2018 3:32 PM CDT 1 mL Left Breast Lactated Ringer's (LR) infusion 30 mL/hr, intravenous, Continuous, Starting on Sat01/14/18 at 1400, Pre-Op New Bag 01/14/2018 10:18 AM CDT 30 mL/hr 30 mL/hr Lactated Ringer's (LR) infusion 125 mL/hr, intravenous, Continuous, Starting on Sat01/14/18 at 1445 New Bag 01/14/2018 3:01 PM CDT oxyCODONE-acetaminophen (PERCOCET) 5-325 mg per tablet 1 tablet 1 tablet, oral, Once, On Sat01/14/18 at 1930, For 1 dose, Phase I & Post-op Floor, Indications: PainIndications:Pain Given 01/14/2018 7:20 PM CDT 1 tablet sodium chloride 0.9 % irrigation As needed, Starting on Sat01/14/18 at 1532, Intra-Op Given 01/14/2018 3:40 PM CDT 1,000 mL Surgical Site Given 01/14/2018 3:32 PM CDT 1,000 mL Ot her (Comment) sodium chloride 0.9% flush 0.5-20 mL 0.5-20 mL, intra-catheter, As needed, line care, Starting on Sat01/14/18 at 0700, Pre-Op, Flush volume based on line type and size. Flush before and after each use. , Indications: FlushingIndications:Flushing documented in this encounter Active and Recently Administered Medications Times are shown in CDT. Scheduled Medication Order 01/12/2018 01/13/2018 01/14/2018 oxyCODONE-acetaminophen (PERCOCET) 5-325 mg per tablet 1 tablet (COMPLETED) 1 tablet, oral, Once, On Sat01/14/18 at 1930, For 1 dose, Phase I & Post-op Floor, Indications: Pain 1920 (Given - Provid er: Kenisha Yang RN) Continuous Medication Order 01/12/2018 01/13/2018 01/14/2018 Lactated Ringer's (LR) infusion 30 mL/hr, intravenous, Continuous, Starting on Sat01/14/18 at 1400, Pre-Op 1018 (New Bag - Prov ider: Shannon Lindo RN)1400 (Due) Lactated Ringer's (LR) infusion 30 mL/hr, intravenous, Continuous, Starting on Sat01/14/18 at 1415, Pre-Op 1415 (Due) Lactated Ringer's (LR) infusion 125 mL/hr, intravenous, Continuous, Starting on Sat01/14/18 at 1445 1501 (New Bag - Prov ider: Saloni Hall CRNA)1718 (Continued from OR - Provider: Kenisha Yang RN)1936 (Stopped - Provider: Kenisha Yang RN) Lactated Ringer's (LR) infusion 125 mL/hr, intravenous, Continuous, Starting on Sat01/14/18 at 1800, Phase I 1800 (Due) PRN Medication Order 01/12/2018 01/13/2018 01/14/2018 bupivacaine (MARCAINE) 0.5 % (5 mg/mL) preservative free injection (CANCELED) As needed, Starting on Sat01/14/18 at 1659, Intra-Op 1659 (Given - Provid er: Kianna Bunch MD PhD - Comment: Left breast) ceFAZolin (ANCEF) injection (CANCELED) As needed, Starting on Sat01/14/18 at 1532, Intra-Op 1532 (Given - Provid er: Kianna Bunch MD PhD - Comment: Poured into 1000mL of NS to the sterile field to be used for port insertion.) fentaNYL (SUBLIMAZE) preservative free injection 50 mcg (CANCELED) 50 mcg, intravenous, Every 10 min PRN, 1st line for pain, Starting on Sat01/14/18 at 1725, Phase I, Notify Anesthesiologist if total PACU dose reaches 100 mcg and pain score 5/10 or more., Indications: Pain 1735 (Given - Provid er: Kenisha Yang RN) heparin lock flush (porcine) 10 unit/mL injection (CANCELED) As needed, Starting on Sat01/14/18 at 1541, Intra-Op 1541 (Given - Provid er: Kianna Bunch MD PhD - Comment: times 4 syringes poured to the sterile field to be used for port insertion.) HYDROmorphone (DILAUDID) injection 0.2 mg (CANCELED) 0.2 mg, intravenous, Every 10 min PRN, 1st line for pain, Starting on Sat01/14/18 at 1725, Phase I, Switch to 2nd line analgesic order if pain is uncontrolled or increasing after 2 doses. Notify Anesthesiologist if total PACU dose reaches 2 mg and pain score 5/10 or more., Indications: Pain 1754 (Given - Provid er: Kenisha Yang RN)1806 (Given - Provider: Kenisha Yang RN)1818 (Given - Provider: Kenisha Yang RN)1841 (Given - Provider: Kenisha Yang RN)1853 (Given - Provider: Kenisha Yang, RN) isosulfan blue (LYMPHAZURIN) 1 % injection (CANCELED) As needed, Starting on Sat01/14/18 at 1532, Intra-Op, Indications: Diagnostic Radiography 1532 (Given - Provid er: Kianna Bunch MD PhD) sodium chloride 0.9 % irrigation (CANCELED) As needed, Starting on Sat01/14/18 at 1532, Intra-Op 1532 (Given - Provid er: Kianna Bunch MD PhD - Comment: Poured to the sterile field to be used for port insertion)1540 (Given - Provider: Kianna Bunch MD PhD) sodium chloride 0.9% flush 0.5-20 mL 0.5-20 mL, intra-catheter, As needed, line care, Starting on Sat01/14/18 at 0700, Pre-Op, Flush volume based on line type and size. Flush before and after each use. , Indications: Flushing sodium chloride 0.9% flush 0.5-20 mL 0.5-20 mL, intra-catheter, As needed, line care, Starting on Sat01/14/18 at 1335, Pre-Op, Flush volume based on line type and size. Flush before and after each use. , Indications: Flushing sodium chloride 0.9% flush 0.5-20 mL 0.5-20 mL, intra-catheter, As needed, line care, Starting on Sat01/14/18 at 1406, Pre-Op, Flush volume based on line type and size. Flush before and after each use. , Indications: Flushing documented in this encounter Orders Medications Ordered That [place] ht Not Have Been Administered Count Last Ordered Date First Ordered Date HYDROmorphone (DILAUDID) injection 0.4 mg 1 01/14/2018 Lactated Ringer's (LR) infusion 3 8 naloxone (NARCAN) 0.4 mg/mL injection 0.04-0.4 mg 2 01/14/2018 ondansetron (ZOFRAN) injection 4 mg 2 01/14 sodium chloride 0.9% flush 0.5-20 mL 3 01/04 Diet Count Last Ordered Date First Orde red Date ADULT DISCHARGE DIET 1 01/14/2018 Nursing Count Last Ordered Date First Orde red Date DISCHARGE ACTIVITY 3 01/14/2018 DISCHARGE CALL PROVIDER 5 01/14/2018 DISCHARGE DRESSING 4 01/14/2018 documented in this encounter Care Teams Guinea Pig Breeder Relationship Specialty Start Date End Date Ravi Smith MD PCP - General 11/04/17 09/27/21 Aft, Kianna Machado MD PhD [address] [place] [address] Surgeon Surgical Oncology 11/22/17 Santiago Gilbert MD [address] [place] [address] Zipper Setter Lockstitch Gastroenterology 11/22/17 documented as of this encounter
--- OUTSIDE RECORDS SUMMARY | 2024-04-24 13:53 | XMS_ITS | Encounter Summary ---
Author Organization [facility] Healthcare Address [address] [place] [address] Care Team Providers Care Cna Instructor Name Role Phone Ravi Smith MD Primary Care Provider [phone] Encounter Details Date Type Department Care Team (Latest Contact Info) Description 11/11/2017 11:58 AM CDT - 11/11/2017 11:59 PM CDT Hospital Encounter [facility] [address] [place] [address] Discharge Disposition: Discharge to home or self care Social History Tobacco Use Types Packs/Day Years Used Date Smoking Tobacco: Never Assessed Comments Unknown Sex and Gender Information Value Date Recorded Sex Assigned at Not on file 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 ??There will be no report generated by a [facility] Radiologist. Narrative RAD_PACS_[facility] - 11/11/2017 11:58 AM CDT EXAMINATION: ??Images For Reference Purposes Only Procedure Note ProviderMary MD - 11/11/2017 EXAMINATION: Images For Reference Purposes Only IMPRESSION:These images are for Reference purposes only and have not beenreviewed by [facility] Radiology. There will be no reportgenerated by a [facility] Radiologist. us Aguila Loza DO IMG MAMMO PROCEDURES Fi nal Result RAD_PACS_[facility] documented in this encounter Visit Diagnoses Not on filedocumented in this encounter Care Teams Cna Instructor Relationship Specialty Start Date End Date Ravi Smith MD PCP - General 11/04/17 09/27/21 documented as of this encounter
--- OUTSIDE RECORDS SUMMARY | 2024-04-24 13:53 | XMS_ITS | Encounter Summary ---
Author Organization [facility] Address [address] [place] [address] Phone Care Team Providers Care Belt Changer Name Role Phone Ravi Smith MD Primary Care Provider [phone] Aft, Kianna Machado MD PhD Unavailable [phone] Santiago Gilbert MD Unavailable [phone] Reason for Visit * Reason Comments Patient Education Encounter Details Date Type Department Care Team (Late st Contact Info) Description 12/10/2017 1:00 PM CDT Office Visit [facility] [address] [facility] 2nd [address] [place] [address] 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) Social History Tobacco Use Types Packs/Day Years Used Date Smoking Tobacco: Former Cigarettes 2015 Smokeless Tobacco: Never Alcohol Use Standard Drinks/Week Comments No 0 (1 standard drink = 0.6 oz pur e alcohol) socially Comments No Sex and Gender Information Value Date Recorded Sex Assigned at Not on file 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 Gender Identity Not on file Sexual Orientation Not on file documented as of this encounter Last Filed Vital Signs Vital Sign Reading Time Taken Comments Blood Pressure 155/80 12/10/2017 1:20 PM CDT Pulse 66 12/10/2017 1:20 PM CDT Temperature 36.8 ??C (98.2 ??F) 12/10/2017 1:20 PM CD T Respiratory Rate - - Oxygen Saturation 93% 12/10/2017 1:20 PM CDT Inhaled Oxygen Concentration - - Weight 114.8 kg (253 lb) 12/10/2017 1:20 PM CDT Height 174 cm (5' 8.5 ) 12/10/2017 1:20 PM CDT Body Mass Index 37.91 12/10/2017 1:20 PM CDT documented in this encounter Ordered Prescriptions Prescription Sig Dispense Quantity Refills Last Filled Start Date End Date metroNIDAZOLE (FLAGYL) 500 mg tablet Take one tablet at 1:00PM, 2:00PM, and 10:00PM the day prior to your surgery. 3 tablet 12/10/2017 8 ondansetron (ZOFRAN) 8 mg tablet Take 1 tablet at 11:00AM with Miralax prep. Take 1 tablet every 8 hours for nausea. 2 tablet 12/10/2017 8 neomycin (MYCIFRADIN) 500 mg tablet Take two tablets (1000 mg) by mouth at 1:00pm, 2:00pm and 10:00PM on the day prior to surgery 6 tablet 12/10/2017 8 documented in this encounter Progress Notes * Sue Wiley LPN - 12/10/2017 1:00 PM CDT Referred by Ravi Smith MD for Patient Education . Chief Complaint: Aleah Gerber is a 62 y.o. female for pre-operative education. Vitals: Vitals: 12/10/17 1320 BP: 155/80 Pulse: 66 Temp: 36.8 ??C (98.2 ??F) SpO2: 93% Body mass index is 37.91 kg/m??. Preoperative Education: Education provided which included: pain control, DVT prevention, SSI prevention, ambulation, diet/bowel activity, incentive spirometerusing the following method(s): written and verbal information provided. Impression and Plan: During today's visit, I discussed the following with the patient: Pre-op prep: bowel prep, antibiotics, CHG cleanser, immunonutrition and carb loading. Surgical procedure: Laparoscopic right colectomy Post-op pain management: multimodal Post-op diet: regular DVT prevention: Lovenox Incentive spirometer: 10x per hour Ambulation Lifestyle: recover from surgery Duration of Visit: 30 minutes with . Patient inquired about breast surgery a couple weeks after her colon surgery. She would like to know when she will need to stop the Lovenox prior to that surgery. I told her we will contact Dr. Smith for recommendation. 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
--- OUTSIDE RECORDS SUMMARY | 2024-04-24 13:53 | XMS_ITS | Encounter Summary ---
Author Organization [facility] Address [address] [place] [address] Phone Care Team Providers Care Acid Conditioning Worker Name Role Phone Ravi Smith MD Primary Care Provider [phone] Kianna Bunch MD PhD Unavailable [phone] Santiago Gilbert MD Unavailable [phone] Encounter Details Date Type Department Care Team (Late st Contact Info) Description 12/06/2017 Telephone [facility] 5th [place] [address] Kianna Bunch MD PhD [address] [place] [address] Social History Tobacco Use Types Packs/Day Years Used Date Smoking Tobacco: Never Smokeless Tobacco: Never Alcohol Use Standard Drinks/Week Comments Yes 0 (1 standard drink = 0.6 oz pur e alcohol) socially Comments No Sex and Gender Information Value Date Recorded Sex Assigned at Not on file 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 Pt does not prefer to undergo bilateral mast at this time amd wound like surveillence. documented in this encounter Plan of Treatment Not on file documented as of this encounter Visit Diagnoses Not on filedocumented in this encounter Care Teams Acid Conditioning Worker Relationship Specialty Start Date End Date Ravi Smith MD PCP - General 11/04/17 09/27/21 Kianna Bunch MD PhD [address] [place], [place] [id number] Surgeon Surgical Oncology 11/22/17 Santiago Gilbert MD [address] [place] [address] Cane Burner Gastroenterology 11/22/17 documented as of this encounter
--- OUTSIDE RECORDS SUMMARY | 2024-04-24 13:53 | XMS_ITS | Encounter Summary ---
Author Organization [facility] Healthcare Address [address] [place] [address] Care Team Providers Care Windows Application Administrator Name Role Phone Ravi Smith MD Primary Care Provider [phone] Aft, Kianna Machado MD PhD Unavailable [phone] Santiago Gilbert MD Unavailable [phone] Encounter Details Date Type Department Care Team (Late st Contact Info) Description 12/30/2017 8:35 AM CDT Ancillary Procedure [facility]ascular Lab [address] [place] [address] Social History Tobacco Use Types Packs/Day Years Used Date Smoking Tobacco: Former Cigarettes 2015 Smokeless Tobacco: Never Alcohol Use Standard Drinks/Week Comments No 0 (1 standard drink = 0.6 oz pur e alcohol) socially Comments No Sex and Gender Information Value Date Recorded Sex Assigned at Not on file 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 Gender Identity Not on file Sexual Orientation Not on file documented as of this encounter Plan of Treatment Not on file documented as of this encounter Procedures Procedure Name Priority Date/Time Associated Diagnosis Comments US VEIN DUPLEX UPPER EXTREMITY LEFT LIMITED IP Routine 12/30/2017 8:51 AM CDT documented in this encounter Results * US Vein Duplex Upper Extremity Left Limited (12/30/2017 8:51 AM CDT) Anatomical Region Laterality Modality Vascular Left Ultrasound 12/30/2017 8:36 AM CDT Narrative 01/01/2018 11:54 PM CDT [facility] - Department of Vascular Surgery, Vascular Laboratory [address] [place] [id number] Upper Extremity Venous Ultrasound Report Patient Name: ALEAH AGUILAR : 1955 (62y 5m) Study Date: 12/30/2017 8:36:46 AM Gender: F Tech: TT Location: [id number] Ref.Provider: NICOLE LÓPEZ Height(Cm): BSA: Weight(Kg): Quality: Adequate Order Provider: MARIE DUTTON Procedures: Vascular Report: Venous Duplex imaging was performed in the left upper extremity. The internal jugular, subclavian and axillary veins were evaluated for patency, spontaneity and phasicity with Doppler, compression and augmentation maneuvers. The brachial, basilic and cephalic veins were also evaluated with compression maneuvers. Indications: Localized edema. Findings: Performing Predictive Maintenance Specialist: Hira Tobar RVT. Left: Venous Doppler signals in the left upper extremity are within normal limits for spontaneity and phasicity; normal response to compression maneuvers. Comments: Contralateral subclavian vein is imaged for comparison and is patent. Unilateral (limited study) performed per M.D. order. Conclusions: Venous Doppler signals in the left upper extremity are within normal limits for spontaneity and phasicity; normal response to compression maneuvers. Contralateral subclavian vein is imaged for comparison and is patent. Unilateral (limited study) performed per M.D. order. History: Not identified. Previous Studies: No previous studies for comparison. Disclaimer: The signing physician has reviewed all images pertaining to this test. These images and this report will be retained in the patient chart by the Vascular Laboratory for the legally required time period. This chart constitutes the legal record of any testing performed. Electronically Signed By: Wojciech Whitaker MD [facility] 2018-01-01 23:54:29 CDT CC: CC: Procedure Note Wojciech Whitaker MD - 01/01/2018 [facility] - Department of Vascular Surgery,Vascular Laboratory [address] [place] [address] Upper Extremity Venous Ultrasound Report Patient Name: ALEAH AGUILARPatient ID: [id number] : 1955 (62y 5m)Study Date: 12/30/2017 8:36:46 AM Gender: FAccession #: [id number] Tech: TTLocation: [id number] Ref.Provider: Arben LÓPEZ(Cm): BSA: Weight(Kg): Quality: AdequateOrder Provider: MARIE DUTTON Procedures: Vascular Report: Venous Duplex imaging was performed in the left upper extremity. Theinternal jugular, subclavian and axillary veins were evaluated for patency, spontaneity andphasicity with Doppler, compression and augmentation maneuvers. The brachial, basilic andcephalic veins were also evaluated with compression maneuvers. Indications: Localized edema. Findings: Performing Predictive Maintenance Specialist: Hira Tobar RVT. Left: Venous Doppler signals in the left upper extremity are within normallimits for spontaneity and phasicity; normal response to compression maneuvers. Comments: Contralateral subclavian vein is imaged for comparison and is patent.Unilateral (limited study) performed per M.D. order. Conclusions: Venous Doppler signals in the left upper extremity are within normallimits for spontaneity and phasicity; normal response to compression maneuvers. Contralateral subclavian vein is imaged for comparison and is patent.Unilateral (limited study) performed per M.D. order. History: Not identified. Previous Studies: No previous studies for comparison. Disclaimer: The signing physician has reviewed all images pertaining to this test.These images and this report will be retained in the patient chart by the VascularLaboratory for the legally required time period. This chart constitutes the legal record ofany testing performed. Electronically Signed By: Wojciech Whitaker MD [facility] 2018-01-01 23:54:29 CDT CC: CC: us Marie Dutton SENIOR PAYROLL ADMINISTRATOR IMG US PROCEDURES Final Result documented in this encounter Visit Diagnoses Not on filedocumented in this encounter Care Teams Windows Application Administrator Relationship Specialty Start Date End Date Ravi Smith MD PCP - General 11/04/17 09/27/21 Aft, Kianna Machado MD PhD [address] [place] [address] Surgeon Surgical Oncology 11/22/17 Santiago Gilbert MD [address] [place] [address] Cardiac Rn Gastroenterology 11/22/17 documented as of this encounter
--- OUTSIDE RECORDS SUMMARY | 2024-04-24 13:53 | XMS_ITS | Encounter Summary ---
Author Organization [facility] Address [address] [place] [address] Phone Care Team Providers Care Distribution Supervisor Name Role Phone Ravi Smith MD Primary Care Provider [phone] Aft, Kianna Machado MD PhD Unavailable Santiago Gilbert MD Unavailable [phone] Encounter Details Date Type Department Care Team (Late st Contact Info) Description 01/07/[address] 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 Arm draw 1 PM, return 1:30. Ok per Lisa. Please callpatient with new date and times. documented in this encounter Plan of Treatment Not on file documented as of this encounter Visit Diagnoses Not on filedocumented in this encounter Care Teams Distribution Supervisor Relationship Specialty Start Date End Date Ravi Smith MD PCP - General 11/04/17 09/27/21 Aft, Kianna Machado MD PhD [address] [place] [address] Surgeon Surgical Oncology 11/22/17 Santiago Gilbert MD [address] [place] [address] Gift Shop Clerk Gastroenterology 11/22/17 documented as of this encounter
--- OUTSIDE RECORDS SUMMARY | 2024-04-24 13:53 | XMS_ITS | Encounter Summary ---
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 us Not In File Miscellaneous IMG US PROCEDURES Bethanie l Result [facility] documented in this encounter Visit Diagnoses Not on filedocumented in this encounter Care Teams Forest Science Professor Relationship Specialty Start Date End Date Ravi Smith MD PCP - General 11/04/17 09/27/21 documented as of this encounter
--- OUTSIDE RECORDS SUMMARY | 2024-04-24 13:53 | XMS_ITS | Encounter Summary ---
Author Organization [facility] Address [address] [place] [address] Phone Care Team Providers Care Calculus Tutor Name Role Phone Ravi Smith MD Primary Care Provider [phone] Aft, Kianna Machado MD PhD Unavailable [phone] Santiago Gilbert MD Unavailable [phone] Encounter Details Date Type Department Care Team (Late st Contact Info) Description 12/06/2017 Orders Only [facility] Surgery [address] [facility] [address] [place] [id number] Aft, Kianna Machado MD PhD [address] [place] [address] Social History Tobacco Use Types Packs/Day Years Used Date Smoking Tobacco: Never Smokeless Tobacco: Never Alcohol Use Standard Drinks/Week Comments Yes 0 (1 standard drink = 0.6 oz pur e alcohol) socially Comments No Sex and Gender Information Value Date Recorded Sex Assigned at Not on file 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 Gender Identity Not on file Sexual Orientation Not on file documented as of this encounter Plan of Treatment Not on file documented as of this encounter Procedures Procedure Name Priority Date/Time Associated Diagnosis Comments BRCA2-HEREDICV3 Routine 12/06/2017 documented in this encounter Results * BRCA2 Sequencing (12/06/2017) Kianna Bunch MD PhD LAB GENETIC TESTING Final Result documented in this encounter Visit Diagnoses Not on filedocumented in this encounter Care Teams Calculus Tutor Relationship Specialty Start Date End Date Ravi Smith MD PCP - General 11/04/17 09/27/21 Kianna Bunch MD PhD [address] [place] [address] Surgeon Surgical Oncology 11/22/17 Santiago Gilbert MD [address] [place] [address] Tool Maker Gastroenterology 11/22/17 documented as of this encounter
--- OUTSIDE RECORDS SUMMARY | 2024-04-24 13:53 | XMS_ITS | Encounter Summary ---
Author Organization [facility] Address [address] [place] [address] Phone Care Team Providers Care Change Management Expert Name Role Phone Ravi Smith MD Primary Care Provider [phone] Aft, Kianna Machado MD PhD Unavailable [phone] Santiago Gilbert MD Unavailable [phone] Encounter Details Date Type Department Care Team (Late st Contact Info) Description 01/07/2018 Telephone [facility] Oncology [address] [facility] [address] [place] [address] Shruti Tang Social History Tobacco Use Types Packs/Day Years Used Date Smoking Tobacco: Former Cigarettes 2015 Smokeless Tobacco: Never Alcohol Use Standard Drinks/Week Comments No 0 (1 standard drink = 0.6 oz pur e alcohol) socially Comments No Sex and Gender Information Value Date Recorded Sex Assigned at Not on file 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 Gender Identity Not on file Sexual Orientation Not on file documented as of this encounter Miscellaneous Notes * Telephone Encounter - Shruti Tang - 01/07/2018 2:57 PM CDT ----- Message from Bigg Ny [...] on filedocumented in this encounter Care Teams Change Management Expert Relationship Specialty Start Date End Date Ravi Smith MD PCP - General 11/04/17 09/27/21 Aft, Kianna Machado MD PhD [address] [place] [address] Surgeon Surgical Oncology 11/22/17 Santiago Gilbert MD [address] [place] [address] Uniformer Gastroenterology 11/22/17 documented as of this encounter
--- OUTSIDE RECORDS SUMMARY | 2024-04-24 13:53 | XMS_ITS | Encounter Summary ---
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 Purifier Servicer Name Role Phone Ravi Smith MD Primary Care Provider [phone] Aft, Kianna Machado MD PhD Unavailable [phone] Santiago Gilbert MD Unavailable Encounter Details Date Type Department Care Team (Latest Contact Info) Description 12/27/2017 12:07 PM CDT - 12/31/2017 8:00 PM CDT Hospital Encounter [facility] [address] [place] [address] Nicole López MD [address] [facility] [phone] [address] [place] [address] Malignant neoplasm of colon, unspecified part of colon (CMS/HCC) Discharge Disposition: Discharge to home [...] on file 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 Gender Identity Not on file Sexual Orientation Not on file documented as of this encounter Last Filed Vital Signs Vital Sign Reading Time Taken Comments Blood Pressure 129/57 12/31/2017 3:50 PM CDT Pulse 60 12/31/2017 3:50 PM CDT Temperature 36.4 ??C (97.5 ??F) 12/31/2017 3:50 PM CD T Respiratory Rate 16 12/31/2017 3:50 PM CDT Oxygen Saturation 97% 12/31/2017 3:50 PM CDT Inhaled Oxygen Concentration - - Weight - - Height - - Body Mass Index - - documented in this encounter Discharge Diagnoses Diagnosis Malignant neoplasm of transverse colon (CMS/HCC) (HCC) - MALIGNANT NEOPLASM OF TRANSVERSE COLON Malignant neoplasm of transverse colon Malignant neoplasm of unspecified site of unspecified female breast (HCC) - MALIGNANT NEOPLASM OF UNSPECIFIED SITE OF UNSPECIFIED FEMALE BREAST documented in this encounter Discharge Summaries * Kj Tovar MD - 12/31/2017 5:26 PM CDT Inpatient Discharge Summary BRIEF OVERVIEW Admitting Provider: Nicole López MD Discharge Provider: Nicole López MD Primary Care Physician at Discharge: Ravi Smith MD [phone] Admission Date: 12/27/2017 Discharge Date: 12/31/2017 Admission Location: [facility] Primary Discharge Diagnosis: Distal transverse colon cancer Secondary Discharge Diagnosis: Malignant neoplasm of colon (CMS/HCC) * No resolved hospital problems. * DETAILS OF HOSPITAL STAY Presenting Problem/History of Present Illness: Distal transverse colon cancer Hospital Course: On the , the patient went to the OR for a left hemicolectomy. She progressed on the standard colorectal surgery pathway. On the , the had worsening abdominal distention with concern for ileus. However, by the the patient had BM. On the , the patient is ambulating, eating, drinking, stooling, and urinating. Active Issues Requiring Follow-up: Pathology of tumor Follow up in clinic Test Results Pending at Discharge: Order Current Status Surgical pathology Collected (12/27/17 0068) Operative Procedures Performed: Procedure(s): RESECTION LEFT COLON - LAPAROSCOPIC Discharge Details Physical Exam at Discharge: Discharge Condition: good Pulse: 60 Resp: 16 BP: 129/57 Temp: 36.4 ??C (97.5 ??F) Weight: Pertinent Exam Findings at Discharge: Physical Exam Constitutional: Appears well-developed and well-nourished. No distress. Eyes: Conjunctivae are normal. Neuro: No FND. AO x4 Pulmonary/Chest: Effort normal No respiratory distress. No grossly audible wheezes nor rales Abdominal: Soft. Less distended and no mass. no tenderness. Incisions have healed well Musculoskeletal: Normal range of motion. No edema or deformity. Skin: Skin is warm and dry. No rash noted. Not diaphoretic. No erythema. Psychiatric: Normal mood and affect. Discharge Disposition: Final discharge disposition not confirmed Code Status at Discharge: Full Discharge Instructions: 1. Inject Lovenox daily for 21 days 2. Oxy and Acetaminophen are written for pain if you need it 3. Metamucil and Miralax are written if you constipated 4. Please follow up in clinic Discharge Medications: Your medication list ASK your doctor about these medications ALPRAZolam 0.25 mg tablet Commonly known as: XANAX BREO ELLIPTA 100-25 mcg/dose diskus inhaler Generic drug: fluticasone-vilanterol metroNIDAZOLE 500 mg tablet Commonly known as: FLAGYL Take one tablet at 1:00PM, 2:00PM, and 10:00PM the day prior to your surgery. neomycin 500 mg tablet Commonly known as: MYCIFRADIN Take two tablets (1000 mg) by mouth at 1:00pm, 2:00pm and 10:00PM on the day prior to surgery ondansetron 8 mg tablet Commonly known as: ZOFRAN Take 1 tablet at 11:00AM with Miralax prep. Take 1 tablet every 8 hours for nausea. sertraline 50 mg tablet Commonly known as: ZOLOFT VITAMIN D3 2,000 unit capsule Generic drug: cholecalciferol Outpatient Follow-Up: Future Appointments Date Time Provider Department Center 01/14/2018 8:00 AM [facility] N NM04 BJN NucMed [facility] [place] 01/14/2018 9:30 AM [facility] BHDG3 CAM Brst Img [facility] CAM IMG 01/27/2018 3:00 PM LAB, [facility] 01/27/2018 3:30 PM Abbi Ventura MD ONC [facility] Cosigned by Nicole López MD at 01/01/2018 8:37 AM CDT documented in this encounter Medications [...] to 10 days. 40 capsule 12/31/2017 8 BREO ELLIPTA 100-25 mcg/dose diskus inhalerIndicatio ns:Bronchospasm Prevention with COPD Inhale every morning 1 11/22/2017 9 cholecalciferol (VITAMIN D3) 2,000 unit capsuleIndicatio ns:Osteoporosis Take 2,000 Units by mouth nightly 10/04/2017 0 ondansetron (ZOFRAN) 8 mg tablet Take 1 tablet at 11:00AM with Miralax prep. Take 1 tablet every 8 hours for nausea. 2 tablet 12/10/2017 8 psyllium 0.52 gram capsuleIndicatio ns:constipation Take 1 capsule (0.52 g total) by mouth daily. In case of constipation 30 capsule 11 12/31/2017 9 sertraline (ZOLOFT) 50 mg tabletIndication s:Anxiety with Depression nightly. 11/07/2017 8 documented as of this encounter Ordered Prescriptions Prescription Sig Dispense Quantity Refills Last Filled Start Date End Date psyllium 0.52 gram capsuleIndication s:constipation Take 1 capsule (0.52 g total) by mouth daily. In case of constipation 30 capsule 11 12/31/2017 9 acetaminophen (TYLENOL) 325 mg tablet Take 2 tablets (650 mg total) by mouth every 6 (six) hours as needed for pain. 30 tablet 12/31/2017 8 enoxaparin (LOVENOX) 40 mg/0.4 mL syringe Inject 0.4 mL (40 mg total) under the skin daily for 21 days. 8.4 mL 12/31/2017 8 oxyCODONE (OXY-IR) 5 mg capsule Take 1 capsule (5 mg total) by mouth every 6 (six) hours as needed (for pain) for up to 10 days. 40 capsule 12/31/2017 8 documented in this encounter Discharge Disposition Disposition Code Departure Means Destination Discharge to home or self care documented in this encounter Progress Notes * Kj Tovar MD - 12/31/2017 10:15 AM CDT CRS Daily Progress HPI: Ms. Aleah Gerber is a 62 y.o. year old admitted for Malignant neoplasm of colon (CMS/HCC) Length of Hospitalization: 0 Post Procedure Day: 3 Days Post-Op SUBJECTIVE/ INTERVAL HISTORY - Willing to try regular diet again today - Feels better - BM yesterday Pain is controlled with Oxy and APAP Patient denies uncontrolled pain, nausea, fever, shortness of breath. Objective Physical Exam Constitutional: Appears well-developed and well-nourished. No distress. Eyes: Conjunctivae are normal. Neuro: No FND. AO x4 Pulmonary/Chest: Effort normal No respiratory distress. No grossly audible wheezes nor rales Abdominal: Soft. Less distended and no mass. no tenderness. Incisions have healed well Musculoskeletal: Normal range of motion. No edema or deformity. Skin: Skin is warm and dry. No rash noted. Not diaphoretic. No erythema. Psychiatric: Normal mood and affect. Medications Current Facility-Administered Medications: ??? acetaminophen (TYLENOL) tablet 1,000 mg, 1,000 mg, oral, Q6H ARIC, 1,000 mg at 12/31/17 0626 ??? ALPRAZolam (XANAX) tablet 0.25 mg, 0.25 mg, oral, TID PRN, 0.25 mg at 12/31/17 0002 ??? enoxaparin (LOVENOX) syringe 40 mg, 40 mg, subcutaneous, Daily-2099, 40 mg at 12/30/172139 ??? fluticasone-salmeterol (ADVAIR DISKUS) 100-50 mcg/dose diskus inhaler 1 puff, 1 puff, inhalation, BID, 1 puff at 12/31/17913 ??? gabapentin (NEURONTIN) capsule 300 mg, 300 mg, oral, BID, 300 mg at 12/31/17914 ??? [COMPLETED] ketorolac (TORADOL) injection 30 mg, 30 mg, intravenous, Q8H ARIC, 30 mg at FOLLOWED BY ibuprofen (ADVIL,MOTRIN) tablet 600 mg, 600 mg, oral, Q8H ARIC, 600 mg at 12/31/17913 ??? oxybutynin (DITROPAN) tablet 2.5 mg, 2.5 mg, oral, BID, 2.5 mg at 12/31/17914 ??? oxyCODONE (ROXICODONE) tablet 5 mg, 5 mg, oral, Q4H PRN, 5 mg at 12/29/172127 ??? sertraline (ZOLOFT) tablet 50 mg, 50 mg, oral, Nightly, 50 mg at 12/30/172138 ??? sodium chloride 0.9% flush 0.5-20 mL, 0.5-20 mL, intra-catheter, Q8H ARIC, 10 mL at 12/31/17 0454 ??? sodium chloride 0.9% flush 0.5-20 mL, 0.5-20 mL, intra-catheter, PRN Lab/Radiology/Diagnostic Review: Lab Results Component Value Date GLUCOSE 85 12/30/2017 CALCIUM 8.7 12/30/2017 SODIUM 141 12/30/2017 POTASSIUM 3.8 12/30/2017 CO2 24 12/30/2017 CHLORIDE 108 12/30/2017 BUNSER 13 12/30/2017 CREATININE 0.95 12/30/2017 Lab Results Component Value Date WBC 7.8 12/30/2017 HGB 10.4 (L) 12/30/2017 HCT 32.1 (L) 12/30/2017 MCV 90.4 12/30/2017 LABPLAT 161 12/30/2017 Vitals: 24hr Min/Max: Temp Min: 36.4 ??C (97.5 ??F) Max: 36.9 ??C (98.4 ??F) Pulse Min: 59 Max: 67 BP Min: 128/73 Max: 157/70 Resp Min: 16 Max: 18 SpO2 Min: 96 % Max: 98 % Most Recent: Vitals: 12/31/17 1007 BP: 157/70 Pulse: 59 Resp: Temp: SpO2: I/O last 2 completed shifts: In: 740 [P.O.:720; I.V.:20] Out: 2450 [Urine:2450] I/O this shift: In: 240 [P.O.:240] Out: 500 [Urine:500] Assessment/Plan Aleah Gerber is a 62 y.o. 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 - Regular Diet - If doing well, could discharge this evening Kj Tovar MD 12/31/201710:15 AM Cosigned by Nicole López MD at 12/31/2017 11:27 AM CDT * Maryann Silva RN - 12/30/2017 1:24 PM CDT 12/30/17 1322 Referral Data Referral Source Low Voltage Technician Referral Reason Discharge Planning Patient Information Support System Spouse/Significant Other Support system contact info (name, phone, availablity) Dat dukes Prior Level of Functioning Living Arrangement House (lives with spouse, bedroom on main level) Potential Discharge Needs Discharge Potential no needs identified Anticipated discharge level of care Return Home Communications Fiduciary Responsibility Patient/Designated decision maker was informed of [facility] fiduciary relationship as necessary 12/30/17 1322 Referral Data Referral Source Low Voltage Technician Referral Reason Discharge Planning Patient Information Support System Spouse/Significant Other Support system contact info (name, phone, availablity) spouseDat Prior Level of Functioning Living Arrangement House (lives with spouse, bedroom on main level) Potential Discharge Needs Discharge Potential no needs identified Anticipated discharge level of care Return Home Communications Fiduciary Responsibility Patient/Designated decision maker was informed of [facility] fiduciary relationship as necessary 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 Address and phone verified to face sheet. Patient lives with spouse, Dat, for support. He can be reached at [phone]. Daughter, Debbi, also lives close. Plan Includes: Discharge to home. No HHC or DME needs identified. Insurance verified as: [employer] Admit Source: non healthcare PCP: verified as Dr. Smith Pharmacy: [facility] Based on a comprehensive family assessment, assistance with instrumental activities of daily livingafter discharge will be provided by spouse. Through the course of our work I determined that spouse possesses the skill and ability to provide and monitor the care of the patient when he or she returns home. Spouse has the capacity to provide/monitor/arrange for the care of the patient. Finally, we determined that spouse has the knowledge ofavailable resources and that combining them with their existing resources will suffice to sustain and care for the patient when he or she returns home. The treatment team is aware of this information. All are in agreement with the aftercare plan. * Kj Tovar MD - 12/30/2017 7:57 AM CDT CRS Daily Progress HPI: Ms. Aleah Gerber is a 62 y.o. year old admitted for Malignant neoplasm of colon (CMS/HCC) Length of Hospitalization: 0 Post Procedure Day: 3 Days Post-Op SUBJECTIVE/ INTERVAL HISTORY -Worsening abd distention o/n. - KUB - mild dilation c/f ileus - UE doppler was negative Pain is controlled with Oxy and APAP Patient denies uncontrolled pain, nausea, fever, shortness of breath. Objective Physical Exam Constitutional: Appears well-developed and well-nourished. No distress. HENT: No nasal cannula nor NGT Eyes: Conjunctivae are normal. Neuro: No FND. AO x4 Pulmonary/Chest: Effort normal No respiratory distress. No grossly audible wheezes nor rales Abdominal: Soft. Distended and no mass. There is no tenderness. There is no rebound and no guarding, Incisions have healed well Musculoskeletal: Normal range of motion. No edema or deformity. Skin: Skin is warm and dry. No rash noted. Not diaphoretic. No erythema. Psychiatric: Normal mood and affect. Medications Current Facility-Administered Medications: ??? acetaminophen (TYLENOL) tablet 1,000 mg, 1,000 mg, oral, Q6H ARIC, 1,000 mg at 12/30/17 0617 ??? ALPRAZolam (XANAX) tablet 0.25 mg, 0.25 mg, oral, TID PRN, 0.25 mg at 12/29/17 1705 ??? enoxaparin (LOVENOX) syringe 40 mg, 40 mg, subcutaneous, Daily-2100, 40 mg at 12/29/172127 ??? fluticasone-salmeterol (ADVAIR DISKUS) 100-50 mcg/dose diskus inhaler 1 puff, 1 puff, inhalation, BID, 1 puff at 12/29/172130 ??? gabapentin (NEURONTIN) capsule 300 mg, 300 mg, oral, BID, 300 mg at 12/29/172127 ??? ketorolac (TORADOL) injection 30 mg, 30 mg, intravenous, Q8H ARIC, 30 mg at 12/30/17 0041 FOLLOWED BY [START ON 12/31/2017] ibuprofen (ADVIL,MOTRIN) tablet 600 mg, 600 mg, oral, Q8H ARIC ??? naloxone (NARCAN) 0.4 mg/mL injection 0.04-0.4 mg, 0.04-0.4 mg, intravenous, Q10 Min PRN ??? oxybutynin (DITROPAN) tablet 2.5 mg, 2.5 mg, oral, BID, 2.5 mg at 12/29/172127 ??? oxyCODONE (ROXICODONE) tablet 5 mg, 5 mg, oral, Q4H PRN, 5 mg at 12/29/172127 ??? sertraline (ZOLOFT) tablet 50 mg, 50 mg, oral, Nightly, 50 mg at 12/29/172127 ??? sodium chloride 0.9% flush 0.5-20 mL, 0.5-20 mL, intra-catheter, Q8H ARIC, 10 mL at 12/29/172130 ??? sodium chloride 0.9% flush 0.5-20 mL, 0.5-20 mL, intra-catheter, PRN Lab/Radiology/Diagnostic Review: Chem/LFT Lab History Some values may be hidden. Unless noted otherwise, only the newest values recorded on each date aredisplayed. Labs-Chem/LFT Latest Ref Range 11/25/17 12/10/17 12/28/17 Sodium 135 - 145 mmol/L 141 136 Creatinine 0.60 - 1.10 mg/dL 0.93 1.19 (A) CrCl- Actual Body Weight (Cockcroft-Gault) 107.1 116.5 91 Some values recorded on this date have been omitted. (A) Abnormal value Hematology Lab History Some values may be hidden. Unless noted otherwise, only the newest values recorded on each date aredisplayed. Labs - Hematology Latest Ref Range 12/10/17 12/28/17 WBC 3.8 - 9.9 K/cumm 8.5 13.3 (A) Hgb 11.9 - 15.5 g/dL 12.3 10.0 (A) Hct 35.6 - 45.5 % 37.6 31.1 (A) Plt 150 - 400 K/cumm 190 166 Neutrophils, abs 1.7 - 6.5 K/cumm 11.4 (A) Some values recorded on this date have been omitted. Some abnormal values recorded on this date have been omitted. (A) Abnormal value Vitals: 24hr Min/Max: Temp Min: 36.6 ??C (97.9 ??F) Max: 37 ??C (98.6 ??F) Pulse Min: 61 Max: 80 BP Min: 102/70 Max: 142/55 Resp Min: 17 Max: 18 SpO2 Min: 94 % Max: 97 % Most Recent: Vitals: 12/30/17 0311 BP: 142/55 Pulse: 61 Resp: 18 Temp: 36.6 ??C (97.9 ??F) SpO2: 94% I/O last 2 completed shifts: In: 1420 [P.O.:1400; I.V.:20] Out: 4800 [Urine:4800] No intake/output data recorded. Assessment/Plan Aleah Gerber is a 62 y.o. 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 - Labs - Scale back diet to clears - D/c entereg - OOB Kj Tovar MD 12/30/20177:57 AM Cosigned by Nicole López MD at 12/31/2017 8:35 AM CDT * Rosalba Espinoza MD - 12/29/2017 7:29 AM CDT Surgery Daily Progress Note Aleah Gerber : 1955 Chief complaint: Colon cancer Subjective Interval History: RAHEEL O/N. Pain well controlled. Objective Recent Vitals(24hr Range): Vitals: 12/28/17 2025 12/28/17 2300 12/29/17 0400 12/29/17 0905 BP: 128/45 136/59 118/47 102/70 BP Location: Left arm Left arm Left arm Right arm Pulse: 58 62 63 63 Resp: 16 16 16 17 Temp: 36.8 ??C (98.2 ??F) 36.7 ??C (98.1 ??F) 36.6 ??C (97.9 ??F) 36.8 ??C (98.2 ??F) TempSrc: Oral Oral Oral Oral SpO2: 98% 96% 94% 96% I and Os: I/O last 3 completed shifts: In: 3366 [P.O.:1090; I.V.:2276] Out: 1876 [Urine:1875; Stool:1] I/O this shift: In: 120 [P.O.:120] Out: 600 [Urine:600] Physical Exam: Constitutional: No acute distress HEENT: Normocephalic, atraumatic Resp: Non labored breathing CV: RRR GI: S/ND/NT. Incision healing well without warmth erythema or induration Neuro: No focal deficits Pscyh: Normal affect Lab/Radiology/Diagnostic Review: Chem/LFT Lab History Some values may be hidden. Unless noted otherwise, only the newest values recorded on each date aredisplayed. Labs-Chem/LFT Latest Ref Range 11/25/17 12/10/17 12/28/17 Sodium 135 - 145 mmol/L 141 136 Creatinine 0.60 - 1.10 mg/dL 0.93 1.19 (A) CrCl- Actual Body Weight (Cockcroft-Gault) 107.1 116.5 91 Some values recorded on this date have been omitted. (A) Abnormal value Hematology Lab History Some values may be hidden. Unless noted otherwise, only the newest values recorded on each date aredisplayed. Labs - Hematology Latest Ref Range 12/10/17 12/28/17 WBC 3.8 - 9.9 K/cumm 8.5 13.3 (A) Hgb 11.9 - 15.5 g/dL 12.3 10.0 (A) Hct 35.6 - 45.5 % 37.6 31.1 (A) Plt 150 - 400 K/cumm 190 166 Neutrophils, abs 1.7 - 6.5 K/cumm 11.4 (A) Some values recorded on this date have been omitted. Some abnormal values recorded on this date have been omitted. (A) Abnormal value Assessment Aleah Gerber is a 62 y.o. 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 female who presented with a history of adenocarcinoma of the transverse colon. She underwent Procedure(s) (LRB): RESECTION LEFT COLON - LAPAROSCOPIC (Left) on 12/27/2017 She is 1 day Post-Op Subjective - NAEO - AF, VSS - experiencing some incisional pain - no BM or flatus - tolerating fulls without nausea or emesis Objective: Blood pressure 102/70, pulse 63, temperature 36.8 ??C (98.2 ??F), temperature source Oral, resp. rate 17, SpO2 96 %. Temp: [36.6 ??C (97.9 ??F)-36.8 ??C (98.2 ??F)] 36.8 ??C (98.2 ??F) Pulse: [63] 63 BP: (102-118)/(47-70) 102/70 Resp: [16-17] 17 I and Os: I/O last 3 completed shifts: In: 3366 [P.O.:1090; I.V.:2276] Out: 1876 [Urine:1875; Stool:1] I/O this shift: In: 120 [P.O.:120] Out: 600 [Urine:600] Scheduled Meds: alvimopan 12 mg oral BID enoxaparin 40 mg subcutaneous Daily-2100 fluticasone-salmeterol 1 puff inhalation BID gabapentin 300 mg oral BID ketorolac 30 mg intravenous Q8H ARIC Followed by [START ON 12/31/2017] ibuprofen 600 mg oral Q8H ARIC oxybutynin 2.5 mg oral BID sertraline 50 mg oral Nightly sodium chloride 0.9% 0.5-20 mL intra-catheter Q8H ARCI Continuous Infusions: PRN Meds:.??? ALPRAZolam ??? naloxone ??? oxyCODONE ??? sodium chloride 0.9% Exam: Constitutional: Appears comfortable. No acute distress. Alert and oriented x 3 Resp: Good inspiratory effort, symmetric chest wall movements CVS:. Well perfused. Abdomen: Soft, non distended, non tender. incisional pain. Incision healing well without warmth erythema or induration Neuro: No focal deficits. Motor strength grossly normal all 4 extremities Extremities: Warm, No significant edema Diagnostic Findings: Recent Labs Lab Units 12/28/17225512/28/17 0155 CO2 mmol/L 24 23 CREATININE mg/dL 1.19* 1.03 CALCIUM mg/dL 8.0* 8.5 ANIONGAP mmol/L 11 10 Recent Labs Lab Units 12/28/17225512/28/17 0155 WHITE BLOOD CELLS K/cumm 13.3* 12.4* RBC M/cumm 3.40* 3.81* HEMOGLOBIN g/dL 10.0* 11.3* HEMATOCRIT % 31.1* 34.9* MCV fL 91.5 91.6 MCHC g/dL 32.2* 32.4 MCH pg 29.4 29.7 MPV fL 10.4 10.4 MONOS PCT % -- 3.0 BASOS % -- 0.1 NEUTROS ABS K/cumm -- 11.4* No lab exists for component: LABPT Assessment/Plan: Aleah Gerber is a 62 y.o. female who is status post Procedure(s) (LRB): RESECTION LEFT COLON - LAPAROSCOPIC (Left) on 12/27/2017 - LUE duplex given swelling and history of malignancy - ok to elevate arm for symptomatic relief - Advance diet - d/c myers, void check this PM - SLIV - wean O2 as tolerated - pain control per pathway - entereg until ROBF Ppx: nat, STEPHANIEs Dispo: continue inpatient care Electronic Signature: Jennifer Overton MD General Surgery Cosigned by Ronny Ng MD at 12/29/2017 1:28 PM CDT * David Matthews MD - 12/27/2017 6:57 PM CDT Postoperative Assessment Subjective Pain control adequate. Denies N/V. Objective Vitals: Vitals: 12/27/17 1840 BP: 130/67 Pulse: 70 Resp: 14 Temp: SpO2: 95% Gen: AAOX3, NAD Pulm: NLB with symmetrical expansion CV: RRR Abd: Soft, ND, appropriately tender, wounds w/ dressings c/d/i : Myers in place draining yellow urine Skin: wwp Neuro: moving all 4 extremities Assessment 62 y.o. female with h/o distal transverse colon cancer now POD0 s/p lap left hemicolectomy on 12/27.Doing well overall. Plan Neuro: Pain control w/ multimodal therapy CV: VSS Pulm: IS GI: CLD, IVF : continue myers ID: Periop abx Activity: OOB, Ambulate TID PPx: SCDs, SQ lovenox injections Cosigned by Nicole López MD at 12/29/2017 8:08 PM CDT documented in this encounter Nursing Notes * Dolores Bryant RN - 12/27/2017 6:11 PM CDT MD Macho at bedside, informed of patient's urine output, no new orders noted, signing patient out documented in this encounter Miscellaneous Notes * Plan of Care - Tomas Wiley RN - 12/31/2017 11:49 AM CDT Goals: Clinical Goals for Shift: Have a more formed BM, walk the hallways, and tolerate a more regular diet. Summary: Patient seems to be tolerating more solid foods today and has been up walking a lot, couldpossibly go home this evening if feeling comfortable doing so. * Plan of Care - Carri Riggins RN - 12/31/2017 4:24 AM CDT Goals: Health Behavior: ??? Understanding of discharge needs will improve Progressing Lack of Knowledge: ??? Ability to develop a pain control plan will improve Progressing ??? Ability to identify pain intensity on a pain scale and rate it consistently will improve Progressing ??? Ability to notify healthcare provider of pain before it becomes unmanageable or unbearable willimprove Progressing Medication: ??? Satisfaction with pain management regimen will improve Progressing Sensory: ??? Ability to identify factors that increase the pain will improve Progressing ??? Pain level will decrease Progressing Clinical Goals for the Shift: Pain control, Decreased abdominal distention. Summary: pain level controlled with PO and IV pain medications. Conts to have bowel movements. Unable to pass flatus when sensation occurs. Up ad maria luz ambulating in halls several times today and twicethis shift. * Plan of Care - Tomas Wiley RN - 12/30/2017 10:58 AM CDT Goals: Clinical Goals for Shift: Upper Extremity Dopplers, decrease in abdominal distention, pain management, and encourage walking. Summary: Upper Extremity dopplers complete, upper abdomen is distended, pain under control, and patient has ambulated in hallways three times today already. * Plan of Care - Carri Riggins RN - 12/30/2017 3:47 AM CDT Goals: Health Behavior: ??? Understanding of discharge needs will improve Progressing Lack of Knowledge: ??? Ability to develop a pain control plan will improve Progressing ??? Ability to identify pain intensity on a pain scale and rate it consistently will improve Progressing ??? Ability to notify healthcare provider of pain before it becomes unmanageable or unbearable willimprove Progressing Medication: ??? Satisfaction with pain management regimen will improve Progressing Sensory: ??? Ability to identify factors that increase the pain will improve Progressing ??? Pain level will decrease Progressing Clinical Goals for the Shift: Pain control. Monitor I/O. Ambulate. Summary: Pain control with PO pain medications. Continue monitoring I/O. Ambulates without assistance with a steady gait. * Plan of Care - Cintia Alatorre RN - 12/29/2017 7:56 AM CDT Goals: Summary Understanding of discharge needs will improve Progressing Ability to develop a pain control plan will improve Progressing * Plan of Juan C - Cintia Alatorre RN - 12/29/2017 7:26 AM CDT Goals: Ability to develop a pain control plan will improve Progressing Understanding of discharge needs will improve Progressing Pain level will decrease Progressing Summary: * Plan of Care - Diana Reid RN - 12/29/2017 3:35 AM CDT Health Behavior: ??? Understanding of discharge needs will improve Progressing Lack of Knowledge: ??? Ability to develop a pain control plan will improve Progressing ??? Ability to identify pain intensity on a pain scale and rate it consistently will improve Progressing ??? Ability to notify healthcare provider of pain before it becomes unmanageable or unbearable willimprove Progressing Medication: ??? Satisfaction with pain management regimen will improve Progressing Sensory: ??? Ability to identify factors that increase the pain will improve Progressing ??? 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 She is ambulating in her room to the bathroom. Patient is tolerating her regular diet without any complications. She has had two BM's and is voiding. * Plan of Care - Cintia Alatorre RN - 12/28/2017 9:34 PM CDT Problem: Health Behavior: Goal: Understanding of discharge needs will improve Outcome: Progressing Comments: Goals: Summary: * Plan of Juan C - Cintia Alatorre RN - 12/28/2017 9:25 PM CDT Goals: Summary: Understanding of discharge needs will improve Progressing * Plan of Juan C - Cintia Alatorre RN - 12/28/2017 7:09 PM CDT Problem: Health Behavior: Goal: Understanding of discharge needs will improve Outcome: Progressing Comments: Goals: pain control Summary: * Plan of Juan C - Cintia Alatorre RN - 12/28/2017 7:04 PM CDT Goals: Summary: * Plan of Juan C - Cintia Alatorre RN - 12/28/2017 7:02 PM CDT Goals: pain control will improve, tolerating diet, increased ambulation Summary: * Plan of Juan C - Cintia Alatorre RN - 12/28/2017 6:59 PM CDT Goals: pain control will improve, increased ambulation, tolerating diet Summary: * Plan of Kassie Sher RN - 12/28/2017 1:32 AM CDT Health Behavior: ??? Understanding of discharge needs will improve Not Progressing Goals: Pt will experience adequate pain management with stable VS. Summary: VSS, and pain managed through AUTOMOTIVE MAINTENANCE TECHNICIAN. * Op Note - Nicole López MD - 12/27/2017 2:56 PM CDT Operative Report SURGEON Nicole López MD SURGICAL TEAM Surgeon(s) and Role: * Nicole López MD - Primary * Bella Hamilton MD - Resident - Assisting DATE OF SURGERY 12/27/2017 PREOPERATIVE DIAGNOSIS Distal transverse colon cancer POSTOPERATIVE DIAGNOSIS Splenic flexure colon cancer PROCEDURE Laparoscopic left hemicolectomy ANESTHESIA General INDICATION FOR PROCEDURE Ms. Gerber is a 62 y.o. female seen for newly diagnosed adenocarcinoma of the colon. Staging workuprevealed no evidence of distant metastatic disease, although a separate breast cancer primary tumorwas discovered. The risks and alternatives for surgery were discussed at length with the patient and consent obtained. OPERATIVE FINDINGS Tumor invading through the colon wall at the splenic flexure with involvement of the omentum. No evidence of peritoneal or hepatic surface disease. DESCRIPTION OF PROCEDURE Patient underwent duction with general endotracheal anesthesia. A Myers catheter was sterilely inserted. She was placed in low lithotomy position. The hair the abdomen was removed with clippers and the skin prepped with ChloraPrep and sterilely draped including an Ioban dressing. She received ertapenem 1 g intravenously prior to the procedure, and a time-out was performed. Using a Fernando technique, a 12 mm balloon tip trocar was placed supraumbilically. The abdomen was entered sharply and without event. Upon insufflation, 5 mm trocars were placed under direct visualization in the suprapubic, left lower quadrant, right upper quadrant and right lower quadrant positions. The omentum was reduced over the transverse colon. There was an obvious tumor at the splenic flexure. The omentum was densely adherent and in 1 area there was concern for tumor invasion through the bowel wall. Starting in the proximal transverse colon, the omentum was mobilized off the transverse m esocolon and the lesser sac entered. This dissection continued along the transverse colon until thearea of the tumor was encountered. In this area the omentum was intentionally divided and taken on block with the cancer. The splenic flexure was mobilized from the medial approach to limited manner. The descending colon was moved medially and the peritoneal reflection divided with the Ligasure. This continued proximally towards the splenic flexure until the flexure was entirely mobilized under direct visualization. The descending colon mesentery was bluntly dissected off Gerota's fascia. The sigmoid colon was left undisturbed. At this point the splenic flexure and the cancer were freely mobile to the midline. The abdomen was desufflated and the remainder of the operation performed through a 15 cm upper midline laparotomy incision. An Yann wound protector was placed. The colon cancer was delivered to the midline wound. Some remaining attachments towards the hepatic flexure were mobilized to free the omentum from the entire transverse colon. A suitable site for transection distally and the distal descending colon was identified. A window was made in the mesentery and the colon divided with a DELIO blue load stapler. The mesentery was taken with the Ligasure in a high location to include the inferior mesenteric vein. Proximally, the left branch of the middle colic artery was identified. The colon was divided between the 2 branches of the middle colic artery with the same DELIO stapler. A high ligation of the middle colic artery was performed of the remaining mesentery taken withthe Ligasure. The specimen was passed off the field. The abdomen was copiously irrigated to ensure no bleeding and this returned clear. A [id number] functional end-to-end double stapled anastomosis was performed between the proximal transverse colon and the distal descending colon. The anti mesenteric corners of the staple lines were removed sharply and the DELIO 80 mm blue load stapler used to create the common channel. This was performed along the anti mesenteric aspects of both limbs of the colon. The staple lines were offset and the common colotomy closed with a TA 60 stapler. Dirty instruments were discarded. Gloves were changed. Three 0 Vicryl sutures were used to reinforce the crotch and to Lembert over the transverse staple line dog ears as well as the center of the staple line. The mesenteric defect was left widely open. The anastomosis was returned to the left upper quadrant by ensuring the small bowel was completely medial to the colon. It was covered with omentum. Sponge and needle counts were confirmed correct. The fascia was closed from above and below using running looped 1 PDS. The subcutaneous tissues were irrigated and the skin closed at all sites with 4 O Monocryl subcuticular suture and skin glue. Patient was awakened, extubated and taken the PACU in stable condition. Estimated Blood Loss 50 mLs Urine output 150 mls Intraoperative Fluids 1800 mls crstyalloid, 500 mls albumin Blood/Blood Products Transfused None Specimens Left hemicolectomy Condition on Discharge from the operating room was stable Date: 12/27/2017 Time: 4:56 PM TEACHING ATTESTATION : I was present and directly participated in the entire procedure (including opening and closing). Nicole López MD, FACS, FASCRS adaptive physical educator Section of Colon & Rectal Surgery [facility] [employer] [phone] Dictated note was generated using voice-relief docking master technology and some variance may result. documented in this encounter Plan of Treatment Not on file documented as of this encounter Procedures Procedure Name Priority Date/Time Associated Diagnosis Comments DIFFERENTIAL AUTO Timed 12/30/2017 10: 33 PM CDT CBC WITH AUTO DIFFERENTIAL Timed 12/30/2017 10:33 PM CDT BASIC METABOLIC PANEL Timed 12/30/2017 10:33 PM CDT US VEIN DUPLEX UPPER EXTREMITY LEFT LIMITED IP Routine 12/30/2017 8:51 AM CDT XR ABDOMEN AP 1 VIEW ED Urgent/IP Urgent 12/29/2017 11:42 PM CDT CBC WITHOUT DIFFERENTIAL Routine 12/28/2017 10:56 PM CDT BASIC METABOLIC PANEL Routine 12/28/2017 10:56 PM CDT POTASSIUM, WHOLE BLOOD Routine 12/28/2017 11:01 AM CDT DIFFERENTIAL AUTO Timed 12/28/2017 1:5 5 AM CDT CBC WITH AUTO DIFFERENTIAL Timed 12/28/2017 1:55 AM CDT BASIC METABOLIC PANEL Timed 12/28/2017 1:55 AM CDT SURGICAL PATHOLOGY Routine 12/27/2017 4: 23 PM CDT Malignant neoplasm of colon, unspecified part of colon (CMS/HCC) RESECTION LEFT COLON - LAPAROSCOPIC 12/27/2017 2:23 PM CDT Malignant neoplasm of colon, unspecified part of colon (CMS/HCC) TYPE AND SCREEN STAT 12/27/2017 1:27 PM CDT documented in this encounter Results * Differential, auto (12/30/2017 10:33 PM CDT) Neutrophil abs 4.9 1.7 - 6.5 K/cumm [facility] Imm gran abs 0.0 0.0 - 0.1 K/cumm [facility] Lymphocyte abs 2.0 0.8 - 3.3 K/cumm [facility] Monocyte abs 0.5 0.2 - 0.8 K/cumm [facility] Eosinophil abs 0.4 0.0 - 0.5 K/cumm [facility] Basophil abs 0.0 0.0 - 0.1 K/cumm [facility] Neutrophil pct 63.0 % [facility] Comment: Interpretive Data Percent cell count reference ranges are not reported, since discordance with absolute values may lead to misinterpretation of CBC data. Current Interpretive Data was last revised on 2017. Imm gran pct 0.6 % [facility] Comment: Interpretive Data Percent cell count reference ranges are not reported, since discordance with absolute values may lead to misinterpretation of CBC data. Current Interpretive Data was last revised on 2017. Lymphocyte pct 24.8 % [facility] Comment: Interpretive Data Percent cell count reference ranges are not reported, since discordance with absolute values may lead to misinterpretation of CBC data. Current Interpretive Data was last revised on 2017. Monocyte pct 6.1 % [facility] Comment: Interpretive Data Percent cell [...] revised on 2017. Basophil pct 0.5 % [facility] Comment: Interpretive Data Percent cell count reference ranges are not reported, since discordance with absolute values may lead to misinterpretation of CBC data. Current Interpretive Data was last revised on 2017. Blood specimen (specimen) 12/30/2017 10:33 PM CDT 12/30/2017 11:31 PM CDT Narrative [facility] - 12/30/2017 11:44 PM CDT Marie Dutton OLD COIN DEALER LAB BLOOD ORDERABLES Final Res ult [facility] Department [place] [address] * Basic metabolic panel (12/30/2017 10:33 PM CDT) Sodium 141 135 - 145 mmol/L [facility] Potassium, pl 3.8 3.3 - 4.9 mmol/L [facility] Chloride 108 97 - 110 mmol/L [facility] CO2 24 22 - 32 mmol/L [facility] Anion gap 10 2 - 15 mmol/L [facility] BUN 13 8 - 25 mg/dL [facility] Creatinine 0.95 0.60 - 1.10 mg/dL [facility] Glucose 85 70 - 199 mg/dL [facility] Comment: Interpretive Data Fasting glucose [...] 2017. Calcium 8.7 8.5 - 10.3 mg/dL [facility] Blood specimen (specimen) 12/30/2017 10:33 PM CDT 12/30/2017 11:31 PM CDT Narrative [facility] - 12/30/2017 11:56 PM CDT us Marie Dutton OLD COIN DEALER LAB BLOOD ORDERABLES Final Res ult [facility] Department [place] [address] * (ABNORMAL) CBC with auto differential (12/30/2017 10:33 PM CDT) Pathologist [facility] WBC 7.8 3.8 - 9.9 K/cumm [facility] Hgb 10.4(L) 11.9 - 15.5 g/dL [facility] Hct 32.1(L) 35.6 - 45.5 % [facility] Plt 161 150 - 400 K/cumm [facility] MPV 10.3 9.1 - 12.3 fL [facility] RBC 3.55(L) 3.90 - 5.20 M/cumm [facility] MCV 90.4 81.3 - 96.4 fL [facility] MCH 29.3 27.1 - 33.3 pg [facility] MCHC 32.4 32.3 - 35.7 g/dL [facility] RDW CV 13.6 11.1 - 14.9 % [facility] RDW SD 45.1 35.7 - 48.1 fL [facility] NRBC abs 0.00 0.00 - 0.01 K/cumm [facility] Blood specimen (specimen) 12/30/2017 10:33 PM CDT 12/30/2017 11:31 PM CDT [facility]ative [facility] - 12/30/2017 11:44 PM CDT us Marie Dutton OLD COIN DEALER LAB BLOOD ORDERABLES Final Res ult [facility] Department [place] [address] * US Vein Duplex Upper Extremity Left Limited (12/30/2017 8:51 AM CDT) Anatomical Region Laterality Modality Vascular Left Ultrasound 12/30/2017 8:36 AM CDT Narrative 01/01/2018 11:54 PM CDT [facility] - Department of Vascular Surgery, Vascular Laboratory [address] [place] [id number] Upper Extremity Venous Ultrasound Report Patient Name: ALEAH GERBER : 1955 (62y 5m) Study Date: 12/30/2017 8:36:46 AM Gender: F Tech: TT Location: [id number] Ref.Provider: NICOLE LÓPEZ Height(Cm): BSA: Weight(Kg): Quality: Adequate Order Provider: MARIE DUTTON Procedures: Vascular Report: Venous Duplex imaging was performed in the left upper extremity. The internal jugular, subclavian and axillary veins were evaluated for patency, spontaneity and phasicity with Doppler, compression and augmentation maneuvers. The brachial, basilic and cephalic veins were also evaluated with compression maneuvers. Indications: Localized edema. Findings: Performing Chemical Handler: Hira Tobar RVT. Left: Venous Doppler signals [...] performed. Electronically Signed By: Wojciech Whitaker MD [facility] 2018-01-01 23:54:29 CDT CC: CC: Procedure Note Wojciech Whitaker MD - 01/01/2018 [facility] - Department of Vascular Surgery,Vascular Laboratory [address] [place] [address] Upper Extremity Venous Ultrasound Report Patient Name: ALEAH GERBERPatient ID: [id number] : 1955 (62y 5m)Study Date: 12/30/2017 8:36:46 AM Gender: FAccession #: [id number] Tech: TTLocation: [id number] Ref.Provider: Arben LÓPEZ(Cm): BSA: Weight(Kg): Quality: AdequateOrder Provider: MARIE DUTTON Procedures: Vascular Report: Venous Duplex imaging was performed in the left upper extremity. Theinternal jugular, subclavian and axillary veins were evaluated for patency, spontaneity andphasicity with Doppler, compression and augmentation maneuvers. The brachial, basilic andcephalic veins were also evaluated with compression maneuvers. Indications: Localized edema. Findings: Performing Chemical Handler: Hira Tobar RVT. Left: Venous Doppler signals [...] performed. Electronically Signed By: Wojciech Whitaker MD [facility] 2018-01-01 23:54:29 CDT CC: CC: Marie Dutton OLD COIN DEALER IMG US PROCEDURES Final Result * XR Abdomen Ap 1 Vw (12/29/2017 11:42 PM CDT) Anatomical Region Laterality Modality Body, Abdomen N/A Computed Radiogr aphy 12/30/2017 9:50 AM CDT Impressions 12/30/2017 10:05 AM CDT A single view of the abdomen is submitted for evaluation. 3 exposures of the abdomen are obtained portably and submitted for interpretation without available comparison. Mild dilatation of the remaining colon is seen consistent with ileus. The lung bases are clear. Electronically signed by: Elma Marquez M.D. Narrative 12/30/2017 10:05 AM CDT EXAMINATION: Abdomen, one view. HISTORY: colon cancer status post hemicolectomy on 12/27/2017 now with nausea and vomiting. COMPARISON: None Procedure Note Elma Marquez MD - 12/30/2017 EXAMINATION: Abdomen, one view. HISTORY: colon cancer status post hemicolectomy on 12/27/2017 now with nausea and vomiting. COMPARISON: None IMPRESSION: A single view of the abdomen is submitted for evaluation. 3 exposures of the abdomen are obtained portably and submitted for interpretation without available comparison. Mild dilatation of the remaining colon is seen consistent with ileus. The lung bases are clear. Electronically signed by: Elma Marquez M.D. Nicole López MD IMG XR PROCEDURES Fi nal Result * (ABNORMAL) Basic metabolic panel (12/28/2017 10:56 PM CDT) Sodium 136 135 - 145 mmol/L [facility] Potassium, pl 3.8 3.3 - 4.9 mmol/L [facility] Chloride 101 97 - 110 mmol/L [facility] CO2 24 22 - 32 mmol/L [facility] Anion gap 11 2 - 15 mmol/L [facility] BUN 23 8 - 25 mg/dL [facility] Creatinine 1.19(H) 0.60 - 1.10 mg/dL [facility] Glucose 103 70 - 199 mg/dL [facility] Comment: Interpretive Data Fasting glucose [...] interpretive data was last revised 2017. Calcium 8.0(L) 8.5 - 10.3 mg/dL [facility] Blood specimen (specimen) 12/28/2017 10:56 PM CDT 12/28/2017 11:40 PM CDT Narrative [facility] - 12/29/2017 12:05 AM CDT us Nicole López MD LAB BLOOD ORDERABLES Final Result [facility] Department [place] [address] * (ABNORMAL) CBC without differential (12/28/2017 10:56 PM CDT) [facility] WBC 13.3(H) 3.8 - 9.9 K/cumm [facility] Hgb 10.0(L) 11.9 - 15.5 g/dL [facility] Hct 31.1(L) 35.6 - 45.5 % [facility] Plt 166 150 - 400 K/cumm [facility] MPV 10.4 9.1 - 12.3 fL [facility] RBC 3.40(L) 3.90 - 5.20 M/cumm [facility] MCV 91.5 81.3 - 96.4 fL [facility] MCH 29.4 27.1 - 33.3 pg [facility] MCHC 32.2(L) 32.3 - 35.7 g/dL [facility] RDW CV 13.7 11.1 - 14.9 % [facility] RDW SD 46.5 35.7 - 48.1 fL [facility] NRBC abs 0.00 0.00 - 0.01 K/cumm [facility] Blood specimen (specimen) 12/28/2017 10:56 PM CDT 12/28/2017 11:40 PM CDT Narrative [facility] - 12/28/2017 11:47 PM CDT Nicole López MD LAB BLOOD ORDERABLES Final Result Performing Organization Address City/[facility] Co de Phone Number [facility] [place] [address] * Potassium, whole blood (12/28/2017 11:01 AM CDT) Pathologist [facility] Potassium, bld 4.6 3.3 - 4.9 mmol/L [facility] Blood specimen (specimen) 12/28/2017 11:01 AM CDT 12/28/2017 11:20 AM CDT Narrative [facility] - 12/28/2017 11:34 AM CDT Nicole López MD LAB BLOOD ORDERABLES Final Result Performing Organization Address [place]/[facility] Co de Phone Number [facility] [place] [address] * (ABNORMAL) Differential, auto (12/28/2017 1:55 AM CDT) Neutrophil abs 11.4(H) 1.7 - 6.5 K/cumm [facility] Imm gran abs 0.1 0.0 - 0.1 K/cumm [facility] Lymphocyte abs 0.6(L) 0.8 - 3.3 K/cumm [facility] Monocyte abs 0.4 0.2 - 0.8 K/cumm [facility] Eosinophil abs 0.0 0.0 - 0.5 K/cumm [facility] Basophil abs 0.0 0.0 - 0.1 K/cumm [facility] Neutrophil pct 91.8 % [facility] Comment: Interpretive Data Percent cell count reference ranges are not reported, since discordance with absolute values may lead to misinterpretation of CBC data. Current Interpretive Data was last revised on 2017. Imm gran pct 0.6 % [facility] Comment: Interpretive Data Percent cell count reference ranges are not reported, since discordance with absolute values may lead to misinterpretation of CBC data. Current Interpretive Data was last revised on 2017. Lymphocyte pct 4.4 % [facility] Comment: Interpretive Data Percent cell count reference ranges are not reported, since discordance with absolute values may lead to misinterpretation of CBC data. Current Interpretive Data was last revised on 2017. Monocyte pct 3.0 % [facility] Comment: Interpretive Data Percent cell count reference ranges are not reported, since discordance with absolute values may lead to misinterpretation of CBC data. Current Interpretive Data was last revised on 2017. Eosinophil pct 0.1 % [facility] Comment: Interpretive Data Percent cell count reference ranges are not reported, since discordance with absolute values may lead to misinterpretation of CBC data. Current Interpretive Data was last revised on 2017. Basophil pct 0.1 % [facility] Comment: Interpretive Data Percent cell count reference ranges are not reported, since discordance with absolute values may lead to misinterpretation of CBC data. Current Interpretive Data was last revised on 2017. Blood specimen (specimen) 12/28/2017 1:55 AM CDT 12/28/2017 2:30 AM CDT Narrative [facility] - 12/28/2017 2:40 AM CDT us Nicole López MD LAB BLOOD ORDERABLES Final Result [facility] Department [place] [address] * (ABNORMAL) Basic metabolic panel (12/28/2017 1:55 AM CDT) Sodium 137 135 - 145 mmol/L [facility] Potassium, pl 5.0(H) 3.3 - 4.9 mmol/L [facility] Chloride 104 97 - 110 mmol/L [facility] CO2 23 22 - 32 mmol/L [facility] Anion gap 10 2 - 15 mmol/L [facility] BUN 20 8 - 25 mg/dL [facility] Creatinine 1.03 0.60 - 1.10 mg/dL [facility] Glucose 207(H) 70 - 199 mg/dL [facility] Comment: Interpretive Data Fasting glucose [...] interpretive data was last revised 2017. Calcium 8.5 8.5 - 10.3 mg/dL [facility] Blood specimen (specimen) 12/28/2017 1:55 AM CDT 12/28/2017 2:30 AM CDT Narrative [facility] - 12/28/2017 2:55 AM CDT us Nicole López MD LAB BLOOD ORDERABLES Final Result [facility] Department [place] [address] * (ABNORMAL) CBC with auto differential (12/28/2017 1:55 AM CDT) [facility] WBC 12.4(H) 3.8 - 9.9 K/cumm [facility] Hgb 11.3(L) 11.9 - 15.5 g/dL [facility] Hct 34.9(L) 35.6 - 45.5 % [facility] Plt 168 150 - 400 K/cumm [facility] MPV 10.4 9.1 - 12.3 fL [facility] RBC 3.81(L) 3.90 - 5.20 M/cumm [facility] MCV 91.6 81.3 - 96.4 fL [facility] MCH 29.7 27.1 - 33.3 pg [facility] MCHC 32.4 32.3 - 35.7 g/dL [facility] RDW CV 13.4 11.1 - 14.9 % [facility] RDW SD 45.1 35.7 - 48.1 fL [facility] NRBC abs 0.00 0.00 - 0.01 K/cumm [facility] Blood specimen (specimen) 12/28/2017 1:55 AM CDT 12/28/2017 2:30 AM CDT Narrative [facility] - 12/28/2017 2:40 AM CDT Nicole López MD LAB BLOOD ORDERABLES Final Result Performing Organization Address City/State/[facility] Co de Phone Number [facility] [place] [address] * Surgical pathology (12/27/2017 4:23 PM CDT) Tissue (Colon, Resection, Tumor) 12/27/2017 4:23 PM CDT Narrative PATHOLOGY [facility] - 01/08/2018 4:24 PM CDT EPIC results best viewed via link to PDF [facility]a [facility] Laboratory [place] [address] SURGICAL PATHOLOGY REPORT FINAL WITH ADDENDUM Patient Name: ?? ALEAH GERBER Gender: ??F : ??1955 (Age: 62) Address: ??[address], [place] ??[address] Hospital #: ??[id number] Taken:12/27/2017 Received:12/30/2017 Reported: 01/08/2018 Patient Type: [facility] Inpatient ?? Service: Surgery Location: [facility] 4940 Physician(s): ??Nicole López M.D. Abbi Ventura M.D. Diagnosis: Colon, left hemicolectomy ? 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 - On immunohistochemistry, there is loss of MLH-1 and PMS-2, and retained nuclear expression for MSH-2 and MSH-6, favoring high microsatellite instability dc/01/08/2018 16:24 By this signature, I attest that the above diagnosis is based upon my personal examination of the slides(and/or other material indicated in the diagnosis). Tom Jewell M.D. Report Electronically Reviewed and Signed Out By ??Tom Jewell M.D. 01/08/2018 16:24:17 Microscopic Description and Comment: Microscopic examination substantiates the above cited diagnosis. History: The patient is a 62-year-old woman who presents with a malignant neoplasm of the colon. ??Operative procedure: Left colon resection. Specimen(s) Received: A: Left colon Gross Description: The specimen is received in a single formalin filled container labeled with the patient's name and left colon and consists of a 23.7 cm in length by 8.3 cm in maximum internal circumference segment of unoriented colon. ??The serosal surface is tovar-pink, smooth and glistening and is remarkable for a focal area of nodularity which is adhered to a 8.7 x 7.6 x 4.0 fragment of omentum. ??The specimen demonstrates an abundant amount of attached pericolic adipose tissue. ??The specimen is opened to show a 6.5 x 5.8 cm tovar-pink to tovar-brown, friable, ulcerated lesion which lies 8.7 cm from one undesignated end margin, and 9.2 cm from the opposite undesignated end margin. ??The lesion is sectioned to show a depth of invasion of 2.2 cm which grossly obliterates the bowel wall and invades into the attached omentum fragment. ??The lesion also invades into the surrounding pericolonic adipose tissue approximately 7.4 cm from the closest radial margin. ??The remainder of the specimen demonstrates tovar-pink, normally folded bowel mucosa. ??The fragment of omentum is sectioned to show a tovar-yellow to tovar-brown, grossly unremarkable cut surface. ??No masses are identified. ??The attached pericolic adipose tissue is dissected and palpated to yield multiple lymph nodes ranging in greatest dimension from 0.4-1.7 centimeters. ??Labeled A1 - undesignated end margins; A2 - lesion with greatest depth of invasion; A3 to A5 - lesion to adhered omentum; A6 to A7 - lesion with invasion into pericolonic adipose tissue; A8 - lesion with serosal nodularity; A9 - lesion 2 uninvolved bowel mucosa; A10 - normally folded bowel mucosa; A11 - radial margin; A12 - 6 lymph nodes, intact; A13 ??4 lymph nodes, intact; A14 - 2 lymph nodes, bisected, one inked blue; A15 - 2 lymph nodes, bisected, one inked blue; A16 - 2 lymph nodes, bisected, one inked blue; A17 - 2 lymph nodes, bisected, one inked blue; A18 - 2 lymph nodes, bisected, one inked blue; A19 - one lymph node, serially sectioned. ??Jar 3. exb/12/30/2017 13:30 Tavia Hooker, P.A. By this signature, I attest that the above diagnosis is based upon my personal examination of the slides(and/or other material). Addenda/Procedures Addendum Ordered: 01/31/2018 Status: Signed Out Addendum Complete: 01/31/2018 By: Tom Jewell M.D. Addendum Signed Out: 02/03/2018 ?? Addendum Diagnosis A digital scan of the original reference lab report will begin on page two of this addendum. This testing was ordered at the request of Dr. Abbi Ventura. Block A8 was selected, and sent for the testing referenced below. Note: Refer to scanned physician request. A request for slide review was received. The case report, slides and/or blocks for the cited accession were retrieved from archives. I personally reviewed the original pathology report, examined the H&E slides, and the blocks and/or slides referenced were chosen. ??Tom Jewell M.D. ??Report Electronically Reviewed and Signed Out By ??Tom Jewell M.D. ??02/03/2018 11:40:48 ? The BRAF Mutation-NGS test was performed at [facility], [address] [place] [address]. The performance characteristics of some immunohistochemical stains, fluorescence in-situ hybridization tests and immunophenotyping by flow cytometry cited in this report (if any) were determined by the Surgical Pathology Department at [facility] as part of an ongoing quality review trainer program and in compliance with federally mandated [...] determined by the Surgical Pathology Department of [facility]. ??It has not been cleared or approved by the U. S. Food and Drug Administration. IMAGES AND SCANNED DOCUMENTS, IF INCLUDED, ONLY VIEWABLE IN PDF VERSION OF REPORT us Nicole López MD LAB PATHOLOGY ORDERA BLES Final Result PATHOLOGY [facility] 3rd Floor [place], [place] [phone] * Type and screen (12/27/2017 1:27 PM CDT) ABO Rh O Positive [facility] Jose Roberto, indirect Negative [facility] Blood specimen (specimen) 12/27/2017 1:27 PM CDT 12/27/2017 1:35 PM CDT Narrative [facility] - 12/27/2017 2:55 PM CDT Has the patient had Daratumumab (Darzalex) in the past 6 months?->Unknown Bettina Morales NP LAB BLOOD BANK TEST ORDERABL ES Final Result [facility] Department [place] [address] documented in this encounter Visit Diagnoses Diagnosis Malignant neoplasm of colon (HCC)- Primary Malignant neoplasm of colon, unspecified site Malignant neoplasm of colon, unspecified part of colon (HCC) documented in this encounter Admitting Diagnoses Diagnosis Malignant neoplasm of colon (HCC) Malignant neoplasm of colon, unspecified site documented in this encounter Administered Medications Inactive Administered Medications - up to 3 most recent administrations Medication Order MAR Action Action Date Dose Rate Site acetaminophen (TYLENOL) tablet 1,000 mg 1,000 mg, oral, Once, On Sat12/27/17 at 1430, For 1 dose, Pre-Op, Give upon arrival to holding area. , Indications: Pre-Emptive AnalgesiaIndications:Pre-Emptive Analgesia Given 12/27/2017 1:50 PM CDT 1,000 mg acetaminophen (TYLENOL) tablet 1,000 mg 1,000 mg, oral, Every 8 hours scheduled, First dose on 12/28/17 at 0400, For 3 doses, Administer at 4:00, 12:00, 20:00 post-op day 1., Indications: PainIndications:Pain Given 12/28/2017 8:30 PM CDT 1,000 mg Given 12/28/2017 12:08 PM CDT 1,000 mg Given 12/28/2017 4:25 AM CDT 1,000 mg acetaminophen (TYLENOL) tablet 1,000 mg 1,000 mg, oral, Every 6 hours scheduled, First dose on Sat12/29/17 at 1800 Given 12/31/2017 6:17 PM CDT 1,000 mg Given 12/31/2017 1:03 PM CDT 1,000 mg Given 12/31/2017 6:26 AM CDT 1,000 mg ALPRAZolam (XANAX) tablet 0.25 mg 0.25 mg, oral, 3 times daily PRN, anxiety, Starting on 12/28/17 at 0000 Given 12/31/2017 12:02 AM CDT 0.25 mg Given 12/29/2017 5:05 PM CDT 0.25 mg Given 12/28/2017 10:49 AM CDT 0.25 mg alvimopan (ENTEREG) capsule 12 mg 12 mg, oral, Once, On Sat12/27/17 at 1430, For 1 dose, Pre-Op, Give immediately upon arrival to holding area (do not prescribe if patient is currently receiving chronic opioid treatment). , Indications: Postoperative Ileus, Postoperative ileus prophylaxisIndications:Posto perative Ileus,Postoperative ileus prophylaxis Given 12/27/2017 1:50 PM CDT 12 mg alvimopan (ENTEREG) capsule 12 mg 12 mg, oral, 2 times daily, First dose on 12/28/17 at 0900, For 7 days, Discontinue after first postoperative bowel Movement., Indications: Postoperative IleusIndications:Postoperati ve Ileus Given 12/28/2017 8:14 AM CDT 12 mg dextrose 5% and sodium chloride 0.45% with potassium chloride 20 mEq/L premix infusion 125 mL/hr, intravenous, Continuous, Starting on Sat12/27/17 at 1815, For 8 hours, Phase I & Post-op Floor Rate/Dose Verify 12/28/2017 1:07 AM CDT 125 mL/hr 125 mL/hr New Bag 12/27/2017 5:46 PM CDT 125 mL/hr 125 mL/hr dextrose 5% and sodium chloride 0.45% with potassium chloride 20 mEq/L premix infusion 80 mL/hr, intravenous, Continuous, Starting on 12/28/17 at 0146, For 12 hours, Phase I & Post-op Floor, Saline lock after 1 liters total. New Bag 12/28/2017 2:50 AM CDT 80 mL/hr 80 mL/hr enoxaparin (LOVENOX) syringe 40 mg 40 mg, subcutaneous, Daily (for enoxaparin), First dose on Sat12/27/17 at 2100, Indications: Deep Vein Thrombosis PreventionIndications:D eep Vein Thrombosis Prevention Given 12/30/2017 9:40 PM CDT 40 mg Right Lower Abdomen Given 12/29/2017 9:28 PM CDT 40 mg Le ft Lower Abdomen Given 12/28/2017 8:30 PM CDT 40 mg Le ft Lower Abdomen fentaNYL (SUBLIMAZE) preservative free injection 50 mcg 50 mcg, intravenous, Once as needed, uncontrolled pain on PACU admission, Starting on Sat12/27/17 at 1757, For 1 dose, Phase I, Then proceed to PACU 1st line analgesic., Indications: PainIndications:Pain Given 12/27/2017 6:00 PM CDT 50 mcg fluticasone-salmeterol (ADVAIR DISKUS) 100-50 mcg/dose diskus inhaler 1 puff 1 puff, inhalation, 2 times daily (membership correspondent), First dose on Sat12/27/17 at 2100, Indications: Bronchospasm Prevention with COPDIndications:Bronchospasm Prevention with COPD Given 12/28/2017 9:14 AM CDT 1 puff fluticasone-salmeterol (ADVAIR DISKUS) 100-50 mcg/dose diskus inhaler 1 puff 1 puff, inhalation, 2 times daily, First dose (after last modification) on Sat12/28/17 at 2100, RN to administer, Indications: Bronchospasm Prevention with COPDIndications:Bronchospasm Prevention with COPD Given 12/31/2017 9:14 AM CDT 1 puff Given 12/30/2017 9:42 PM CDT 1 puff Given 12/30/2017 9:26 AM CDT 1 puff gabapentin (NEURONTIN) capsule 300 mg 300 mg, oral, Once, On Sat12/27/17 at 1430, For 1 dose, Pre-Op, Give upon arrival to holding area. , Indications: Pre-Emptive AnalgesiaIndications:Pre-Emptive Analgesia Given 12/27/2017 1:50 PM CDT 3 00 mg gabapentin (NEURONTIN) capsule 300 mg 300 mg, oral, 2 times daily, First dose on Sat12/28/17 at 0900 Given 12/31/2017 9:15 AM CDT 300 mg Given 12/30/2017 9:38 PM CDT 300 mg Given 12/30/2017 9:27 AM CDT 300 mg heparin 5,000 unit/mL injection 5,000 Units 5,000 Units, subcutaneous, Once, On Sat12/27/17 at 1430, For 1 dose, Pre-Op, Can give immediately after neuraxial block if no complications per anesthesia., Indications: Deep Vein Thrombosis PreventionIndications:De ep Vein Thrombosis Prevention Given 12/27/2017 1:50 PM CDT 5,000 Units Right Lower Abdomen HYDROmorphone (DILAUDID) 20 mg/100 mL (0.2 mg/mL) sodium chloride 0.9% (premix) Continuous dose: None, AUTOMOTIVE MAINTENANCE TECHNICIAN dose: 0.2 mg, AUTOMOTIVE MAINTENANCE TECHNICIAN lockout: 10 Minutes, 1 hour limit: Other / 1.2 mg, intravenous, Continuous, Starting on Sat12/27/17 at 1815, Until 12/29/17 at 0820, 100 mL, Indications: Pain, RoutineIndications:Pain Rate/Dose Verify 12/29/2017 7:48 AM CDT Rate/Dose Verify 12/29/2017 4:49 AM CDT Rate/Dose Verify 12/28/2017 10:30 PM CDT ibuprofen (ADVIL,MOTRIN) tablet 600 mg 600 mg, oral, Every 8 hours scheduled, First dose on Sat12/31/17 at 0800, Indications: PainIndications:Pain Given 12/31/2017 3:52 PM CDT 600 mg Given 12/31/2017 9:14 AM CDT 600 mg ketorolac (TORADOL) injection 15 mg 15 mg, intravenous, Once, On 12/28/17 at 0130, For 1 dose Given 12/28/2017 1:04 AM CDT 15 mg ketorolac (TORADOL) injection 30 mg 30 mg, intravenous, Every 8 hours scheduled, First dose on Sat12/28/17 at 0800, For 9 doses, First dose to be given morning after surgery 08:00, 16:00, 24:00, Indications: Postoperative Acute PainIndications:Postoperative Acute Pain Given 12/31/2017 4:51 AM CDT 30 mg Given 12/30/2017 9:40 PM CDT 30 mg Given 12/30/2017 11:47 AM CDT 30 mg Lactated Ringer's (LR) infusion 30 mL/hr, intravenous, Continuous, Starting on Sat12/27/17 at 1430, For 365 days New Bag 12/27/2017 4:55 PM CDT Rate/Dose Verify 12/27/2017 2:23 PM CDT New Bag 12/27/2017 1:51 PM CDT 30 mL/hr 30 mL/hr oxybutynin (DITROPAN) tablet 2.5 mg 2.5 mg, oral, 2 times daily, First dose on Sat12/28/17 at 0130 Given 12/31/2017 9:15 AM CDT 2.5 mg Given 12/30/2017 9:39 PM CDT 2.5 mg Given 12/30/2017 9:27 AM CDT 2.5 mg oxyCODONE (ROXICODONE) tablet 5 mg 5 mg, oral, Every 4 hours PRN, 2nd line for pain, Starting on Sat12/29/17 at 0820, Indications: PainIndications:Pain Given 12/29/2017 9:28 PM CDT 5 mg Given 12/29/2017 3:42 PM CDT 5 mg Given 12/29/2017 11:39 AM CDT 5 mg sertraline (ZOLOFT) tablet 50 mg 50 mg, oral, Nightly, First dose on Sat12/27/17 at 2100, Indications: Anxiety with DepressionIndications:Anxiety with Depression Given 12/30/2017 9: 39 PM CDT 50 mg Given 12/29/2017 9:28 PM CDT 50 mg Given 12/28/2017 8:30 PM CDT 50 mg sodium chloride 0.9% flush 0.5-20 mL 0.5-20 mL, intra-catheter, Every 8 hours scheduled, First dose on Sat12/27/17 at 2200, Flush volume based on line type and size. , Indications: FlushingIndications:Flushing Given 12/31/2017 1:04 PM CDT 10 mL Given 12/31/2017 4:54 AM CDT 10 mL Given 12/30/2017 9:41 PM CDT 10 mL sodium chloride 0.9% infusion - ADS Override Pull Starting on 12/28/17 at 1727, For 1 dose, CINTIA ALATORRE: cabinet override sodium chloride 0.9% infusion 30 mL/hr, intravenous, Continuous, Starting on 12/28/17 at 2300 Rate/Dose Verify 12/29/2017 7:48 AM CDT 30 mL/hr 30 mL/hr Rate/Dose Verify 12/29/2017 4:49 AM CDT 30 mL/hr 30 mL/h r Rate/Dose Verify 12/28/2017 10:30 PM CDT 30 mL/hr 30 mL/ hr documented in this encounter Discontinued Medications Medication Sig Discontinue Reason Start Date End Da te neomycin (MYCIFRADIN) 500 mg tablet Take two tablets (1000 mg) by mouth at 1:00pm, 2:00pm and 10:00PM on the day prior to surgery Stop Taking at Discharge 12/10/2017 12/31/2017 metroNIDAZOLE (FLAGYL) 500 mg tablet Take one tablet at 1:00PM, 2:00PM, and 10:00PM the day prior to your surgery. Stop Taking at Discharge 12/10/2017 12/31/2017 documented as of this encounter Active and Recently Administered Medications Times are shown in CDT. Scheduled Medication Order 12/29/2017 12/30/2017 12/31/2017 acetaminophen (TYLENOL) tablet 1,000 mg 1,000 mg, oral, Every 6 hours scheduled, First dose on Sat12/29/17 at 1800 1705 (Given - Provider: Cintia Alatorre RN) 0040 (Given - Provider: Carri Riggins RN)0617 (Given - Provider: Carri Riggins RN)1147 (Given - Provider: Tomas Wiley RN)1737 (Given - Provider: Tomas Wiley RN) 0002 (Given - Provider: Carri Riggins RN)0626 (Given - Provider: Carri Riggins RN)1303 (Given - Provider: Tomas Wiley RN)1817 (Given - Provider: Tomas Wiley RN) enoxaparin (LOVENOX) syringe 40 mg 40 mg, subcutaneous, Daily (for enoxaparin), First dose on Sat12/27/17 at 2100, Indications: Deep Vein Thrombosis Prevention 2127 (Given - Provider: Carri Riggins RN) 2139 (Given - Provider: Carri Riggins RN) fluticasone-salmeterol (ADVAIR DISKUS) 100-50 mcg/dose diskus inhaler 1 puff 1 puff, inhalation, 2 times daily, First dose (after last modification) on 12/28/17 at 2100, RN to administer, Indications: Bronchospasm Prevention with COPD 1049 (Given - Provider: Cintia Alatorre RN - Comment: per pt)2130 (Given - Provider: Carri Riggins RN) 0926 (Given - Provider: Tomas Wiley RN)2141 (Given - Provider: Carri Riggins RN) 09 (Given - Provider: Tomas Wiley RN) gabapentin (NEURONTIN) capsule 300 mg 300 mg, oral, 2 times daily, First dose on 12/28/17 at 0900 0833 (Given - Provider: Cintia Alatorre RN)2127 (Given - Provider: Carri Riggins RN) 926 (Given - Provider: Tomas Wiley RN)2137 (Given - Provider: Carri Riggins RN) 914 (Given - Provider: Tomas Wiley RN) ibuprofen (ADVIL,MOTRIN) tablet 600 mg(Linked Group 1) 600 mg, oral, Every 8 hours scheduled, First dose on Sat12/31/17 at 0800, Indications: Pain 0914 (Given - Provider: Tomas Wiley RN)1552 (Given - Provider: Tomas Wiley RN) ketorolac (TORADOL) injection 30 mg (COMPLETED)(Linked Group 1) 30 mg, intravenous, Every 8 hours scheduled, First dose on 12/28/17 at 0800, For 9 doses, First dose to be given morning after surgery 08:00, 16:00, 24:00, Indications: Postoperative Acute Pain 0834 (Given - Provider: Cintia Alatorre RN)1542 (Given - Provider: Cintia Alatorre RN) 0041 (Given - Provider: Carri Riggins RN)1147 (Given - Provider: Tomas Wiley RN - Comment: no patent IV)2139 (Given - Provider: Carri Riggins RN) 0451 (Given - Provider: Carri Riggins RN) oxybutynin (DITROPAN) tablet 2.5 mg 2.5 mg, oral, 2 times daily, First dose on 12/28/17 at 0130 0834 (Given - Provider: Cintia Alatorre RN)2127 (Given - Provider: Carri Riggins RN) 926 (Given - Provider: Tomas Wiley RN)2138 (Given - Provider: Carri Riggins RN) 0915 (Given - Provider: Tomas Wiley, LYDIA) sertraline (ZOLOFT) tablet 50 mg 50 mg, oral, Nightly, First dose on Sat12/27/17 at 2100, Indications: Anxiety with Depression 2127 (Given - Provider: Carri Riggins RN) 2138 (Given - Provider: Carri Riggins RN) sodium chloride 0.9% flush 0.5-20 mL 0.5-20 mL, intra-catheter, Every 8 hours scheduled, First dose on Sat12/27/17 at 2200, Flush volume based on line type and size. , Indications: Flushing 0449 (Not Given - Provider: Diana Reid RN - Reason: Order parameters not met - Comment: fluids infusing)1542 (Given - Provider: Cintia Alatorre RN)213 (Given - Provider: Carri Riggins RN) 0600 (Due)1230 (Given - Provider: Tomas Wiley RN)214 (Given - Provider: Carri Riggins RN) 0454 (Given - Provider: Carri Riggins, LYDIA)1304 (Given - Provider: Tomas Wiley RN) Continuous Medication Order 12/29/2017 12/30/2017 12/31/2017 HYDROmorphone (DILAUDID) 20 mg/100 mL (0.2 mg/mL) sodium chloride 0.9% (premix) (CANCELED) Continuous dose: None, AUTOMOTIVE MAINTENANCE TECHNICIAN dose: 0.2 mg, AUTOMOTIVE MAINTENANCE TECHNICIAN lockout: 10 Minutes, 1 hour limit: Other / 1.2 mg, intravenous, Continuous, Starting on Sat12/27/17 at 1815, Until Sat12/29/17 at 0820, 100 mL, Indications: Pain, Routine 0449 (Rate/Dose Verify - Provider: Diana Reid, LYDIA)0748 (Rate/Dose Verify - Provider: Diana Reid RN)1151 (Stopped (Dual Sign) - Provider: Cintia Alatorre RN) sodium chloride 0.9% infusion (CANCELED) 30 mL/hr, intravenous, Continuous, Starting on Sat12/28/17 at 2300 0449 (Rate/Dose Verify - Provider: Diana Reid RN)0748 (Rate/Dose Verify - Provider: Diana Reid, LYDIA) PRN Medication Order 12/29/2017 12/30/2017 12/31/2017 ALPRAZolam (XANAX) tablet 0.25 mg 0.25 mg, oral, 3 times daily PRN, anxiety, Starting on Sat12/28/17 at 0000 1047 (Not Given - Provider: Cintia Alatorre RN - Reason: Patient/family refused)1705 (Given - Provider: Cintia Alatorre RN) 0002 (Given - Provider: Carri Riggins, LYDIA) oxyCODONE (ROXICODONE) tablet 5 mg 5 mg, oral, Every 4 hours PRN, 2nd line for pain, Starting on Sat12/29/17 at 0820, Indications: Pain 1139 (Given - Provider: Cintia Alatorre RN)1542 (Given - Provider: Cintia Alatorre RN)2128 (Given - Provider: Carri Riggins, LYDIA) polyethylene glycol (MIRALAX) packet 17 g 17 g, oral, Daily PRN, constipation, Only if you are constipatied, Starting on Sat12/31/17 at 1752 sodium chloride 0.9% flush 0.5-20 mL 0.5-20 mL, intra-catheter, As needed, line care, Starting on Sat12/27/17 at 1956, Flush volume based on line type and size. Flush before and after each use. , Indications: Flushing Linked Groups Order Group 1: ketorolac (TORADOL) injection 30 mg (COMPLETED)Jump to med 30 mg, intravenous, Every 8 hours scheduled, First dose on Sat12/28/17 at 0800, For 9 doses, First dose to be given morning after surgery 08:00, 16:00, 24:00, Indications: Postoperative Acute Pain Followed by ibuprofen (ADVIL,MOTRIN) tablet 600 mgJump to med 600 mg, oral, Every 8 hours scheduled, First dose on Sat12/31/17 at 0800, Indications: Pain documented in this encounter Orders Medications Ordered That [place] ht Not Have Been Administered Count Last Ordered Date First Ordered Date polyethylene glycol (MIRALAX) packet 17 g 1 12/31/2017 dextrose 5% and sodium chlor [place] 0.45% infusion 1 12/30/2017 dextrose 5% and sodium chlor [place] 0.45% with potassium chloride 20 mEq/L 20 mEq/L premix infusion - ADS Override Pull 1 12/28/2017 bupivacaine-EPINEPHrine (MAR KIERSTEN with EPI) 0.5 %-1:200,000 preservative free injection 1 12/27/2017 ertapenem (INVANZ) 1000 mg i n 50 mL sodium chloride 0.9% (premix) 1 12/27/2017 haloperidol (HALDOL) injection 1 mg 1 12/27 HYDROmorphone (DILAUDID) injection 0.2 mg 1 12/27/2017 HYDROmorphone (DILAUDID) injection 0.4 mg 1 12/27/2017 Lactated Ringer's (LR) infusion 1 8 naloxone (NARCAN) 0.4 mg/mL injection 0.04-0.4 mg 2 12/27/2017 ondansetron (ZOFRAN) injection 4 mg 2 12/27 sodium chloride 0.9 % irrigation 1 12/28/19 18 sodium chloride 0.9% flush 0.5-20 mL 3 12/05 Diet Count Last Ordered Date First Orde red Date ADULT DISCHARGE DIET 1 12/31/2017 Nursing Count Last Ordered Date First Orde red Date DISCHARGE ACTIVITY 3 12/31/2017 DISCHARGE CALL PROVIDER 6 12/31/2017 DISCHARGE DRESSING 2 12/31/2017 OTHER FOLLOW UP 1 12/31/2017 Admission Count Last Ordered Date First Orde red Date ASSIGN PATIENT STATUS 2 12/27/2017 documented in this encounter Care Teams Air Purifier Servicer Relationship Specialty Start Date End Date Ravi Smith MD PCP - General 11/04/17 09/27/21 Aft, Kianna Machado MD PhD [address] [place] [address] Surgeon Surgical Oncology 11/22/17 Santiago Gilbert MD [address] [place] [address] Prize Coordinator Gastroenterology 11/22/17 documented as of this encounter
--- OUTSIDE RECORDS SUMMARY | 2024-04-24 13:53 | XMS_ITS | Encounter Summary ---
Author Organization [facility] Healthcare Address [address] [place] [address] Care Team Providers Care Civil Structural Designer Name Role Phone Ravi Smith MD Primary Care Provider [phone] Aft, Kianna Machado MD PhD Unavailable [phone] Santiago Gilbert MD Unavailable [phone] Encounter Details Date Type Department Care Team (Late st Contact Info) Description 12/10/2017 3:45 PM CDT Lab [address] [place] [address] Preoperative testing Social History Tobacco Use Types Packs/Day Years Used Date Smoking Tobacco: Former Cigarettes 1 2015 Smokeless Tobacco: Never Alcohol Use Standard Drinks/Week Comments No 0 (1 standard drink = 0.6 oz pur e alcohol) socially Comments No Sex and Gender Information Value Date Recorded Sex Assigned at Not on file Legal Sex 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 Gender Identity Not on file Sexual Orientation Not on file documented as of this encounter Plan of Treatment Not on file documented as of this encounter Procedures Procedure Name Priority Date/Time Associated Diagnosis Comments CBC WITHOUT DIFFERENTIAL STAT 12/10/2017 3:14 PM CDT Preoperative testing TYPE AND SCREEN STAT 12/10/2017 3:14 PM CDT Preoperative testing BASIC METABOLIC PANEL STAT 12/10/2017 3:14 PM CDT Preoperative testing documented in this encounter Results * Type and screen (12/10/2017 3:14 PM CDT) ABO Rh O Positive [facility] Jose Roberto, indirect Negative [facility] Blood specimen (specimen) 12/10/2017 3:14 PM CDT 12/10/2017 6:42 PM CDT Narrative [facility] - 12/10/2017 8:51 PM CDT Has the patient had Daratumumab (Darzalex) in the past 6 months?->Unknown Bettina Mroales NP LAB BLOOD BANK TEST ORDERABL ES Final Result [facility] Department [place] [address] * CBC without differential (12/10/2017 3:14 PM CDT) Pathologist [facility] WBC 8.5 3.8 - 9.9 K/cumm [facility] Hgb 12.3 11.9 - 15.5 g/dL [facility] Hct 37.6 35.6 - 45.5 % [facility] Plt 190 150 - 400 K/cumm [facility] MPV 10.6 9.1 - 12.3 fL [facility] RBC 4.12 3.90 - 5.20 M/cumm [facility] MCV 91.3 81.3 - 96.4 fL [facility] MCH 29.9 27.1 - 33.3 pg [facility] MCHC 32.7 32.3 - 35.7 g/dL [facility] RDW CV 13.3 11.1 - 14.9 % [facility] RDW SD 44.2 35.7 - 48.1 fL [facility] NRBC abs 0.00 0.00 - 0.01 K/cumm [facility] Blood specimen (specimen) 12/10/2017 3:14 PM CDT 12/10/2017 6:34 PM CDT Narrative [facility] - 12/10/2017 6:45 PM CDT Bettina Carmen CUSTOMER SERVICES COORDINATOR LAB BLOOD ORDERABLES Final R esult Performing Organization Address City/[facility]/ZIP Co de Phone Number [facility] [place] [address] * Basic metabolic panel (12/10/2017 3:14 PM CDT) Sodium 141 135 - 145 mmol/L [facility] Potassium, pl 3.9 3.3 - 4.9 mmol/L [facility] Chloride 106 97 - 110 mmol/L [facility] CO2 27 22 - 32 mmol/L [facility] Anion gap 8 2 - 15 mmol/L [facility] BUN 13 8 - 25 mg/dL [facility] Creatinine 0.93 0.60 - 1.10 mg/dL [facility] Glucose 79 70 - 199 mg/dL [facility] 2017. Calcium 9.1 8.5 - 10.3 mg/dL [facility] Blood specimen (specimen) 12/10/2017 3:14 PM CDT 12/10/2017 6:34 PM CDT [facility]ative [facility] - 12/10/2017 7:02 PM CDT Bettina Carmen CUSTOMER SERVICES COORDINATOR LAB BLOOD ORDERABLES Final R esult Performing Organization Address City/[facility]/ZIP Co de Phone Number [facility] Department [place] [address] documented in this encounter Visit Diagnoses Diagnosis Preoperative testing Unspecified pre-operative examination documented in this encounter Care Teams Civil Structural Designer Relationship Specialty Start Date End Date Ravi Smith MD PCP - General 11/04/17 09/27/21 Aft, Kianna Machado MD PhD [address] [place], [place] [id number] Surgeon Surgical Oncology 11/22/17 Santiago Gilbert MD [address] [place] [address] Nanotechnologist Gastroenterology 11/22/17 documented as of this encounter
--- OUTSIDE RECORDS SUMMARY | 2024-04-24 13:53 | XMS_ITS | Encounter Summary ---
Author Organization [facility] Healthcare Address [address] [place] [address] Care Team Providers Care Assembler Plastic Boat Name Role Phone Ravi Smith MD Primary Care Provider [phone] Aft, Kianna Machado MD PhD Unavailable [phone] Santiago Gilbert MD Unavailable [phone] Encounter Details Date Type Department Care Team (Late st Contact Info) Description 12/27/2017 2:00 PM CDT - 12/27/2017 5:30 PM CDT Surgery [facility] Operating Room [address] [place] [address] Nicole López MD [address] [phone] [place] [address] RESECTION LEFT COLON - LAPAROSCOPIC Surgery Details Date/Time Status Location OR Service Patient Class Case Class Case Type Trauma Case? 12/27/2017 2:00 PM Posted [facility] OR POD 1 331 Colorectal Surgery Admit Elective Panel 1 Procedure LRB Anes Op Region Wound Class Comments RESECTION LEFT COLON - LAPAROSCOPIC Left General Abdomen Class II - Clean Contaminated Surgeon Surgeon Role Service Panel Nicole López MD Primary Colorectal 1 Bella Hamilton MD Resident - Assisting Col orectal 1 documented in this encounter Social History Tobacco Use Types Packs/Day Years Used Date Smoking Tobacco: Former Cigarettes 1 2015 Smokeless Tobacco: Never Alcohol Use Standard Drinks/Week Comments No 0 (1 standard drink = 0.6 oz pur e alcohol) socially Comments No Sex and Gender Information Value Date Recorded Sex Assigned at Not on file Legal Sex Female 1:06 AM GRIPS Gender Identity Not on file Sexual Orientation Not on file documented as of this encounter Last Filed Vital Signs Vital Sign Reading Time Taken Comments Blood Pressure 120/55 12/27/2017 5:30 PM CDT Pulse 74 12/27/2017 5:30 PM CDT Temperature 36.3 ??C (97.3 ??F) 12/27/2017 5:20 PM CD T Respiratory Rate 14 12/27/2017 5:30 PM CDT Oxygen Saturation 92% 12/27/2017 5:30 PM CDT Inhaled Oxygen Concentration - - Weight - - Height - - Body Mass Index - - documented in this encounter Discharge Summaries * Kj Tovar MD - 12/31/2017 5:26 PM CDT Inpatient Discharge Summary BRIEF OVERVIEW Admitting Provider: Nicole López MD Discharge Provider: Nicole López MD Primary Care Physician at Discharge: Ravi Smith MD [phone] Admission Date: 12/27/2017 Discharge Date: 12/31/2017 [address]mission Location: [facility] Primary Discharge Diagnosis: Distal transverse colon cancer [...] Order Current Status Surgical pathology Collected (12/27/17 6201) Operative Procedures Performed: Procedure(s): RESECTION LEFT COLON [...] Time Provider Department Center 01/14/2018 8:00 AM [facility] N NM04 BJN NucMed [facility] [place] 01/14/2018 9:30 AM [facility] BHDG3 CAM Brst Img [facility] CAM IMG 01/27/2018 3:00 PM LAB, COTY ONC ONC LAB [facility] ONC LAB 01/27/2018 3:30 PM Abbi Ventura MD ONC BW [facility] Oncology Cosigned by Nicole López MD [...] 40 mg, subcutaneous, Daily-2100, 40 mg at 12/30/172139 ??? fluticasone-salmeterol (ADVAIR DISKUS) 100-50 mcg/dose diskus inhaler 1 puff, 1 puff, inhalation, BID, 1 puff at 12/31/17913 ??? gabapentin (NEURONTIN) capsule 300 mg, 300 mg, oral, BID, 300 mg at 12/31/17914 ??? [COMPLETED] ketorolac (TORADOL) injection 30 mg, 30 mg, intravenous, Q8H ARIC, 30 mg at 451 FOLLOWED BY ibuprofen (ADVIL,MOTRIN) tablet 600 mg, [...] CDT 12/30/17 1322 Referral Data Referral Source Quality Improvement Consultant Referral Reason Discharge Planning Patient Information Support System Spouse/Significant Other Support system contact info (name, phone, availablity) Dat dukes Prior Level of Functioning Living Arrangement House (lives with spouse, bedroom on main level) Potential Discharge Needs Discharge Potential no needs identified Anticipated discharge level of care Return Home Communications Fiduciary Responsibility Patient/Designated decision maker was informed of [facility] fiduciary relationship as necessary 12/30/17 1322 Referral Data Referral Source Quality Improvement Consultant Referral Reason Discharge Planning Patient Information Support System Spouse/Significant Other Support system contact info (name, phone, availablity) spouse, Dat Prior Level of Functioning Living Arrangement House (lives with spouse, bedroom on main level) Potential Discharge Needs Discharge Potential no needs identified Anticipated discharge level of care Return Home Communications Fiduciary Responsibility Patient/Designated decision maker was informed of [facility] fiduciary relationship as necessary 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 Address and phone verified to face sheet. Patient lives with spouse, Dat, for support. He can be reached at [phone]. Daughter, Debbi, also lives close. Plan Includes: Discharge to home. No HHC or DME needs identified. Insurance verified as: [place] Access Admit Source: non healthcare PCP: [facility] Based on a comprehensive family assessment, assistance [...] lap left hemicolectomyon 12/27. Plan - D/c EDUCATIONAL ADMINISTRATION TEACHER - PO pain meds - HLIV - [...] sodium chloride 0.9% 0.5-20 mL intra-catheter Q8H ARIC Continuous Infusions: PRN Meds:.??? ALPRAZolam ??? naloxone [...] edema Diagnostic Findings: Recent Labs Lab Units 12/28/176 12/28/17 0155 CO2 mmol/L 24 23 CREATININE mg/dL [...] per pathway - entereg until ROBF Ppx: Jamliah johns Dispo: continue inpatient care Electronic Signature: Jennifer [...] gait. * Plan of Care - Cintia Callahan RN - 12/29/2017 7:56 AM CDT Goals: Summary Understanding of discharge needs will improve Progressing Ability to develop a pain control plan will improve Progressing * Plan of Care - Cintia Callahan RN - 12/29/2017 7:26 AM CDT Goals: [...] ambulate, tolerate PO Summary: Patient says that EDUCATIONAL ADMINISTRATION TEACHER is controlling her pain. She is ambulating in her room to the bathroom. Patient is tolerating her regular diet without any complications. She has had two BM's and is voiding. * Plan of Care - Cintia Callahan RN - 12/28/2017 9:34 PM CDT Problem: Health Behavior: Goal: Understanding of discharge needs will improve Outcome: Progressing Comments: Goals: Summary: * Plan of Care - Cintia Callahan RN - 12/28/2017 9:25 PM CDT Goals: Summary: Understanding of discharge needs will improve Progressing * Plan of Care - Cintia Callahan RN - 12/28/2017 7:09 PM CDT Problem: Health Behavior: Goal: Understanding of discharge needs will improve Outcome: Progressing Comments: Goals: pain control Summary: * Plan of Care - Cintia Callahan RN - 12/28/2017 7:04 PM CDT Goals: Summary: * Plan of Care - Cintia Callahan RN - 12/28/2017 7:02 PM CDT Goals: pain control will improve, tolerating diet, increased ambulation Summary: * Plan of Care - Cintia Callahan RN - 12/28/2017 6:59 PM CDT Goals: pain control will improve, increased ambulation, tolerating diet Summary: * Plan of Care - Kassie Barros RN - 12/28/2017 1:32 AM CDT Health Behavior: ??? Understanding of discharge needs will improve Not Progressing Goals: Pt will experience adequate pain management with stable VS. Summary: VSS, and pain managed through EDUCATIONAL ADMINISTRATION TEACHER. * Op Note - Nicole López MD [...] no bleeding and this returned clear. A [id number] functional end-to-end double stapled anastomosis was performed [...] and closing). Nicole López MD, FACS, FASCRS pulpit operator Section of Colon & Rectal Surgery [facility] [phone] Dictated note was generated using voice-crosscutter rolled glass technology and some variance may result. documented [...] abs 4.9 1.7 - 6.5 K/cumm [facility] Imm gran abs 0.0 0.0 - 0.1 K/cumm [facility] Lymphocyte abs 2.0 0.8 - 3.3 K/cumm [facility] Monocyte abs 0.5 0.2 - 0.8 K/cumm [facility] Eosinophil abs 0.4 0.0 - 0.5 K/cumm [facility] Basophil abs 0.0 0.0 - 0.1 K/cumm [facility] Neutrophil pct 63.0 % [facility] Comment: Interpretive Data Percent cell count reference ranges are not reported, since discordance with absolute values may lead to misinterpretation of CBC data. Current Interpretive Data was last revised on 2017. Imm gran pct 0.6 % [facility] Comment: Interpretive Data Percent cell count reference ranges are not reported, since discordance with absolute values may lead to misinterpretation of CBC data. Current Interpretive Data was last revised on 2017. Lymphocyte pct 24.8 % [facility] Comment: Interpretive Data Percent cell count reference ranges are not reported, since discordance with absolute values may lead to misinterpretation of CBC data. Current Interpretive Data was last revised on 2017. Monocyte pct 6.1 % [facility] Comment: Interpretive Data Percent cell count reference ranges are not reported, since discordance with absolute values may lead to misinterpretation of CBC data. Current Interpretive Data was last revised on 2017. Eosinophil pct 5.0 % [facility] Comment: Interpretive Data Percent cell count reference ranges are not reported, since discordance with absolute values may lead to misinterpretation of CBC data. Current Interpretive Data was last revised on 2017. Basophil pct 0.5 % [facility] Comment: Interpretive Data Percent cell count reference ranges are not reported, since discordance with absolute values may lead to misinterpretation of CBC data. Current Interpretive Data was last revised on 2017. Blood specimen (specimen) 12/30/2017 10:33 PM CDT 12/30/2017 11:31 PM CDT Narrative [facility] - 12/30/2017 11:44 PM CDT Marie Dutton ASSISTANT AUTO CENTER MANAGER LAB BLOOD ORDERABLES Final Res ult [facility] Department [place] [address] * Basic metabolic panel (12/30/2017 10:33 PM CDT) Sodium 141 135 - 145 mmol/L [facility] Potassium, pl 3.8 3.3 - 4.9 mmol/L [facility] Chloride 108 97 - 110 mmol/L [facility] CO2 24 22 - 32 mmol/L [facility] Anion gap 10 2 - 15 mmol/L [facility] BUN 13 8 - 25 mg/dL [facility] Creatinine 0.95 0.60 - 1.10 mg/dL [facility] Glucose 85 70 - 199 mg/dL [facility] 2017. Calcium 8.7 8.5 - 10.3 mg/dL [facility] Blood specimen (specimen) 12/30/2017 10:33 PM CDT 12/30/2017 11:31 PM CDT Narrative [facility] - 12/30/2017 11:56 PM CDT us Marie Dutton ASSISTANT AUTO CENTER MANAGER LAB BLOOD ORDERABLES Final Res ult [facility] Department [place] [address] * (ABNORMAL) CBC with auto differential (12/30/2017 10:33 PM CDT) WBC 7.8 3.8 - 9.9 K/cumm [facility] Hgb 10.4(L) 11.9 - 15.5 g/dL [facility] Hct 32.1(L) 35.6 - 45.5 % [facility] Plt 161 150 - 400 K/cumm [facility] MPV 10.3 9.1 - 12.3 fL [facility] RBC 3.55(L) 3.90 - 5.20 M/cumm [facility] MCV 90.4 81.3 - 96.4 fL [facility] MCH 29.3 27.1 - 33.3 pg [facility] MCHC 32.4 32.3 - 35.7 g/dL [facility] RDW CV 13.6 11.1 - 14.9 % [facility] RDW SD 45.1 35.7 - 48.1 fL [facility] NRBC abs 0.00 0.00 - 0.01 K/cumm [facility] Blood specimen (specimen) 12/30/2017 10:33 PM CDT 12/30/2017 11:31 PM CDT Narrative [facility] - 12/30/2017 11:44 PM CDT us Marie Dutton ASSISTANT AUTO CENTER MANAGER LAB BLOOD ORDERABLES Final Res ult [facility] Department of Laboratories [place], [place] [id number] * US Vein Duplex Upper Extremity Left Limited (12/30/2017 8:51 AM CDT) Anatomical Region Laterality Modality Vascular Left Ultrasound 12/30/2017 8:36 AM CDT Narrative 01/01/2018 11:54 PM CDT [facility] - Department of Vascular Surgery, Vascular Laboratory [address] [place] [id number] Upper Extremity Venous Ultrasound Report Patient Name: ALEAH GERBER : 1955 (62y 5m) Study Date: 12/30/2017 8:36:46 AM Gender: F Tech: TT Location: [id number] Ref.Provider: NICOLE LÓPEZ Height(Cm): BSA: Weight(Kg): Quality: Adequate Order Provider: MARIE DUTTON Procedures: Vascular Report: Venous Duplex imaging was performed in the left upper extremity. The internal jugular, subclavian and axillary veins were evaluated for patency, spontaneity and phasicity with Doppler, compression and augmentation maneuvers. The brachial, basilic and cephalic veins were also evaluated with compression maneuvers. Indications: Localized edema. Findings: Performing Vp Mobile Products: Hira Tobar RVT. Left: Venous Doppler signals [...] performed. Electronically Signed By: Wojciech Whitaker MD [facility] 2018-01-01 23:54:29 CDT CC: CC: Procedure Note Wojciech Whitaker MD - 01/01/2018 [facility] - Department of Vascular Surgery,Vascular Laboratory [address] [place] [address] Upper Extremity Venous Ultrasound Report Patient Name: ALEAH GERBERPatient ID: [id number] : 1955 (62y 5m)Study Date: 12/30/2017 8:36:46 AM Gender: FAccession #: [id number] Tech: TTLocation: [id number] Ref.Provider: Arben LÓPEZ(Cm): BSA: Weight(Kg): Quality: AdequateOrder Provider: MARIE DUTTON Procedures: Vascular Report: Venous Duplex imaging was performed in the left upper extremity. Theinternal jugular, subclavian and axillary veins were evaluated for patency, spontaneity andphasicity with Doppler, compression and augmentation maneuvers. The brachial, basilic andcephalic veins were also evaluated with compression maneuvers. Indications: Localized edema. Findings: Performing Vp Mobile Products: Hira Tobar RVT. Left: Venous Doppler signals [...] performed. Electronically Signed By: Wojciech Whitaker MD [facility] 2018-01-01 23:54:29 CDT CC: CC: Marie Dutton NP IMG US PROCEDURES Final Result * XR [...] Sodium 136 135 - 145 mmol/L [facility] Potassium, pl 3.8 3.3 - 4.9 mmol/L [facility] Chloride 101 97 - 110 mmol/L [facility] CO2 24 22 - 32 mmol/L [facility] Anion gap 11 2 - 15 mmol/L [facility] BUN 23 8 - 25 mg/dL [facility] Creatinine 1.19(H) 0.60 - 1.10 mg/dL [facility] Glucose 103 70 - 199 mg/dL [facility] 2017. Calcium 8.0(L) 8.5 - 10.3 mg/dL [facility] Blood specimen (specimen) 12/28/2017 10:56 PM CDT 12/28/2017 11:40 PM CDT Narrative [facility] - 12/29/2017 12:05 AM CDT us Nicole López MD LAB BLOOD ORDERABLES Final Result [facility] Department [place] [address] * (ABNORMAL) CBC without differential (12/28/2017 10:56 PM CDT) WBC 13.3(H) 3.8 - 9.9 K/cumm [facility] Hgb 10.0(L) 11.9 - 15.5 g/dL [facility] Hct 31.1(L) 35.6 - 45.5 % [facility] Plt 166 150 - 400 K/cumm [facility] MPV 10.4 9.1 - 12.3 fL [facility] RBC 3.40(L) 3.90 - 5.20 M/cumm [facility] MCV 91.5 81.3 - 96.4 fL [facility] MCH 29.4 27.1 - 33.3 pg [facility] MCHC 32.2(L) 32.3 - 35.7 g/dL [facility] RDW CV 13.7 11.1 - 14.9 % [facility] RDW SD 46.5 35.7 - 48.1 fL [facility] NRBC abs 0.00 0.00 - 0.01 K/cumm [facility] Blood specimen (specimen) 12/28/2017 10:56 PM CDT 12/28/2017 11:40 PM CDT [facility] - 12/28/2017 11:47 PM CDT Nicole López MD LAB BLOOD ORDERABLES Final Result [facility] Department [place] [address] * Potassium, whole blood (12/28/2017 11:01 AM CDT) [facility] Potassium, bld 4.6 3.3 - 4.9 mmol/L [facility] Blood specimen (specimen) 12/28/2017 11:01 AM CDT 12/28/2017 11:20 AM CDT Narrative [facility] - 12/28/2017 11:34 AM CDT Nicole López MD LAB BLOOD ORDERABLES Final Result [facility] Department [place] [address] * (ABNORMAL) Differential, auto (12/28/2017 1:55 AM CDT) [facility] Neutrophil abs 11.4(H) 1.7 - 6.5 K/cumm [facility] Imm gran abs 0.1 0.0 - 0.1 K/cumm [facility] Lymphocyte abs 0.6(L) 0.8 - 3.3 K/cumm [facility] Monocyte abs 0.4 0.2 - 0.8 K/cumm [facility] Eosinophil abs 0.0 0.0 - 0.5 K/cumm [facility] Basophil abs 0.0 0.0 - 0.1 K/cumm [facility] Neutrophil pct 91.8 % [facility] Comment: Interpretive Data Percent cell count reference ranges are not reported, since discordance with absolute values may lead to misinterpretation of CBC data. Current Interpretive Data was last revised on 2017. Imm gran pct 0.6 % [facility] Comment: Interpretive Data Percent cell count reference ranges are not reported, since discordance with absolute values may lead to misinterpretation of CBC data. Current Interpretive Data was last revised on 2017. Lymphocyte pct 4.4 % [facility] Comment: Interpretive Data Percent cell count reference ranges are not reported, since discordance with absolute values may lead to misinterpretation of CBC data. Current Interpretive Data was last revised on 2017. Monocyte pct 3.0 % [facility] Comment: Interpretive Data Percent cell count reference ranges are not reported, since discordance with absolute values may lead to misinterpretation of CBC data. Current Interpretive Data was last revised on 2017. Eosinophil pct 0.1 % [facility] Comment: Interpretive Data Percent cell count reference ranges are not reported, since discordance with absolute values may lead to misinterpretation of CBC data. Current Interpretive Data was last revised on 2017. Basophil pct 0.1 % [facility] Comment: Interpretive Data Percent cell count reference ranges are not reported, since discordance with absolute values may lead to misinterpretation of CBC data. Current Interpretive Data was last revised on 2017. Blood specimen (specimen) 12/28/2017 1:55 AM CDT 12/28/2017 2:30 AM CDT Narrative [facility] - 12/28/2017 2:40 AM CDT us Nicole López MD LAB BLOOD ORDERABLES Final Result [facility] Department [place] [address] * (ABNORMAL) Basic metabolic panel (12/28/2017 1:55 AM CDT) Pathologist [facility] Sodium 137 135 - 145 mmol/L [facility] Potassium, pl 5.0(H) 3.3 - 4.9 mmol/L [facility] Chloride 104 97 - 110 mmol/L [facility] CO2 23 22 - 32 mmol/L [facility] Anion gap 10 2 - 15 mmol/L [facility] BUN 20 8 - 25 mg/dL [facility] Creatinine 1.03 0.60 - 1.10 mg/dL [facility] Glucose 207(H) 70 - 199 mg/dL [facility] 2017. Calcium 8.5 8.5 - 10.3 mg/dL [facility] Blood specimen (specimen) 12/28/2017 1:55 AM CDT 12/28/2017 2:30 AM CDT Narrative [facility] - 12/28/2017 2:55 AM CDT us Nicole López MD LAB BLOOD ORDERABLES Final Result [facility] Department [place] [address] * (ABNORMAL) CBC with auto differential (12/28/2017 1:55 AM CDT) Pathologist [facility] WBC 12.4(H) 3.8 - 9.9 K/cumm [facility] Hgb 11.3(L) 11.9 - 15.5 g/dL [facility] Hct 34.9(L) 35.6 - 45.5 % [facility] Plt 168 150 - 400 K/cumm [facility] MPV 10.4 9.1 - 12.3 fL [facility] RBC 3.81(L) 3.90 - 5.20 M/cumm [facility] MCV 91.6 81.3 - 96.4 fL [facility] MCH 29.7 27.1 - 33.3 pg [facility] MCHC 32.4 32.3 - 35.7 g/dL [facility] RDW CV 13.4 11.1 - 14.9 % [facility] RDW SD 45.1 35.7 - 48.1 fL [facility] NRBC abs 0.00 0.00 - 0.01 K/cumm [facility] Blood specimen (specimen) 12/28/2017 1:55 AM CDT 12/28/2017 2:30 AM CDT Narrative [facility] - 12/28/2017 2:40 AM CDT Nicole López MD LAB BLOOD ORDERABLES Final Result [facility] Department [place] [address] * Surgical pathology (12/27/2017 4:23 PM CDT) Tissue (Colon, Resection, Tumor) 12/27/2017 4:23 PM CDT Narrative PATHOLOGY [facility] - 01/08/2018 4:24 PM CDT EPIC results best viewed via link to PDF [facility] Galilea Muñiz Laboratory [place] [address] SURGICAL PATHOLOGY REPORT FINAL WITH ADDENDUM Patient Name: ?? ALEAH GERBER Gender: ??F : ??1955 (Age: 62) Address: ??[address], [place] ??[address] [facility] #: ??[id number] Taken:12/27/2017 Received:12/30/2017 Reported: 01/08/2018 Patient Type: [facility] Inpatient ?? Service: Surgery Location: [facility] [address] Physician(s): ??David Hodges M.D. Diagnosis: Colon, left hemicolectomy ? - [...] The BRAF Mutation-NGS test was performed at [facility], [address] [place] [address]. The performance characteristics of some immunohistochemical stains, fluorescence in-situ hybridization tests and immunophenotyping by flow cytometry cited in this report (if any) were determined by the Surgical Pathology Department at [facility] as part of an ongoing quality and reliability engineer program and in compliance with federally [...] Surgical Pathology Department of [facility]. ??It has not been cleared or approved by the U. S. Food and Drug Administration. IMAGES AND SCANNED DOCUMENTS, IF INCLUDED, ONLY VIEWABLE IN PDF VERSION OF REPORT Nicole López MD LAB PATHOLOGY ORDERA LEO Final Result PATHOLOGY [facility] 3rd Floor [place], [place] [phone] * Type and screen (12/27/2017 1:27 PM CDT) Pathologist [facility] ABO Rh O Positive [facility] Jose Roberto, indirect Negative [facility] Blood specimen (specimen) 12/27/2017 1:27 PM CDT 12/27/2017 1:35 PM CDT Narrative [facility] - 12/27/2017 2:55 PM CDT Has the patient had Daratumumab (Darzalex) in the past 6 months?->Unknown Bettina Morales NP LAB BLOOD BANK TEST ORDERABL ES Final Result [facility] [place] [address] documented in this encounter Visit Diagnoses Diagnosis Malignant neoplasm of colon (HCC)- Primary Malignant neoplasm of colon, unspecified site Malignant neoplasm of colon, unspecified part of colon (HCC) Malignant neoplasm of colon, unspecified part [...] Given 12/28/2017 10:49 AM CDT 0.25 mg bupivacaine-EPINEPHrine (MARCAINE with EPI) 0.5 %-1:200,000 preservative free injection As needed, Starting on Sat12/27/17 at 1601, Intra-Op Given 12/27/2017 4:01 PM CDT 20 mL Abdominal Tissue enoxaparin (LOVENOX) syringe 40 mg 40 mg, subcutaneous, Daily (for enoxaparin), First dose on Sat12/27/17 at 2100, Indications: Deep Vein Thrombosis PreventionIndications:Deep Vein Thrombosis Prevention Given 12/30/2017 9:40 PM CDT 40 mg Right Lower Abdomen Given 12/29/2017 9:28 PM CDT 40 mg Le ft Lower Abdomen Given 12/28/2017 8:30 PM CDT 40 mg Le ft Lower Abdomen fluticasone-salmeterol (ADVAIR DISKUS) 100-50 mcg/dose diskus inhaler [...] Given 12/30/2017 9:27 AM CDT 300 mg ibuprofen (ADVIL,MOTRIN) tablet 600 mg 600 mg, oral, Every 8 hours scheduled, First dose on Sat12/31/17 at 0800, Indications: PainIndications:Pain Given 12/31/2017 3:52 PM CDT 600 mg Given 12/31/2017 9:14 AM CDT 600 mg oxybutynin (DITROPAN) tablet 2.5 mg 2.5 mg, [...] Anxiety with DepressionIndications:Anxiety with Depression Given 12/30/2017 9:3 9 PM CDT 50 mg Given 12/29/2017 9:28 PM CDT 50 mg Given 12/28/2017 8:30 PM CDT 50 mg sodium chloride 0.9 % irrigation As needed, Starting on Sat12/27/17 at 1557, Intra-Op Given 12/27/2017 3:57 PM CDT 1,000 mL Surgical Site sodium chloride 0.9% flush 0.5-20 mL 0.5-20 mL, intra-catheter, Every 8 hours scheduled, First dose on Sat12/27/17 at 2200, Flush volume based on line type and size. , Indications: FlushingIndications:Flushing Given 12/31/2017 1:04 PM CDT 10 mL Given 12/31/2017 4:54 AM CDT 10 mL Given 12/30/2017 9:41 PM CDT 10 mL documented in this [...] at 1800 1705 (Given - Provider: Cintia Callahan RN) 0040 (Given - Provider: Carri Riggins RN)0617 (Given - Provider: Carri Riggins RN)1147 (Given - Provider: Tomas Wiley RN)1737 (Given - Provider: Tomas Wiley RN) 0002 (Given - Provider: Carri Riggins RN)0626 (Given - Provider: Carri Riggins RN)1303 (Given - Provider: Tomas Wiley RN)1817 (Given - Provider: Tomas Wiley, RN) enoxaparin (LOVENOX) syringe 40 mg 40 [...] to administer, Indications: Bronchospasm Prevention with COPD 104 (Given - Provider: Cintia Callahan RN - Comment: per pt)2130 (Given - Provider: Carri Riggins RN) 09 (Given - Provider: Tomas Wiley RN)2141 (Given - Provider: Carri Riggins RN) 0914 (Given - Provider: Tomas Wiley RN) gabapentin (NEURONTIN) capsule 300 mg 300 mg, oral, 2 times daily, First dose on Sat12/28/17 at 0900 0833 (Given - Provider: Cintia Callahan RN)2127 (Given - Provider: Carri Riggins RN) 09 (Given - Provider: Tomas Wiley RN)213 (Given - Provider: Carir Riggins RN) 0915 (Given - Provider: Tomas Wiley RN) ibuprofen [...] Acute Pain 0834 (Given - Provider: Cintia Callahan RN)1542 (Given - Provider: Cintia Callahan RN) 0041 (Given - Provider: Carri Riggins RN)1147 (Given - Provider: Tomas Wiley RN - Comment: no patent IV)2139 (Given - Provider: Carri Riggins RN) 045 (Given - Provider: Carri Riggins RN) oxybutynin (DITROPAN) tablet 2.5 mg 2.5 mg, oral, 2 times daily, First dose on Sat12/28/17 at 0130 0834 (Given - Provider: Cintia Callahan RN)2127 (Given - Provider: Carri Riggins RN) 09 (Given - Provider: Tomas Wiley RN)2138 (Given - Provider: Carri Riggins RN) 0915 (Given - Provider: Tomas Wiley RN) sertraline (ZOLOFT) tablet 50 mg 50 mg, [...] Comment: fluids infusing)1542 (Given - Provider: Cintia Callahan RN)2130 (Given - Provider: Carri Riggins RN) 0600 (Due)1230 (Given - Provider: Tomas Wiley RN)2140 (Given - Provider: Carri Riggins RN) 0454 (Given - Provider: Carri Riggins, RN)1304 (Given - Provider: Tomas Wiley, LYDIA) Continuous Medication Order 12/29/2017 12/30/2017 12/31/2017 HYDROmorphone (DILAUDID) 20 mg/100 mL (0.2 mg/mL) sodium chloride 0.9% (premix) (CANCELED) Continuous dose: None, EDUCATIONAL ADMINISTRATION TEACHER dose: 0.2 mg, EDUCATIONAL ADMINISTRATION TEACHER lockout: 10 Minutes, 1 hour limit: Other / 1.2 mg, intravenous, Continuous, Starting on Sat12/27/17 at 1815, Until 12/29/17 at 0820, 100 mL, Indications: Pain, Routine 0449 (Rate/Dose Verify - Provider: Diana Reid, LYDIA)0748 (Rate/Dose Verify - Provider: Diana Reid, RN)1151 (Stopped (Dual Sign) - Provider: Cintia Callahan RN) sodium chloride 0.9% infusion (CANCELED) 30 mL/hr, intravenous, Continuous, Starting on 12/28/17 at 2300 0449 (Rate/Dose Verify - Provider: Diana Reid, LYDIA)0748 (Rate/Dose Verify - Provider: Diana Reid, RN) PRN Medication Order 12/29/2017 12/30/2017 12/31/2017 ALPRAZolam (XANAX) tablet 0.25 mg 0.25 mg, oral, 3 times daily PRN, anxiety, Starting on 12/28/17 at 0000 1047 (Not Given - Provider: Cintia Callahan RN - Reason: Patient/family refused)1705 (Given - Provider: Cintia Callahan RN) 0002 (Given - Provider: Carri Riggins, RN) oxyCODONE (ROXICODONE) tablet 5 mg 5 mg, oral, Every 4 hours PRN, 2nd line for pain, Starting on 12/29/17 at 0820, Indications: Pain 1139 (Given - Provider: Cintia Callahan, RN)1542 (Given - Provider: Cintia Callahan, RN)2128 (Given - Provider: Carri Riggins, RN) polyethylene glycol (MIRALAX) packet 17 g 17 [...] sodium chlor frederick 0.45% infusion 1 12/30/2017 acetaminophen (TYLENOL) tablet 1,000 mg 3 0 12/29/2017 12/27/2017 oxyCODONE (ROXICODONE) tablet 5 mg 1 2017 dextrose 5% and sodium chlor frederick 0.45% with potassium chloride 20 mEq/L 20 mEq/L premix infusion - ADS Override Pull 1 12/28/2017 fluticasone-salmeterol (ADVA IR DISKUS) 100-50 mcg/dose diskus inhaler 1 puff 2 12/28/2017 ketorolac (TORADOL) injection 15 mg 1 12/28 oxybutynin (DITROPAN) tablet 2.5 mg 1 12/28 sodium chloride 0.9% infusion 1 12/28/2017 ALPRAZolam (XANAX) tablet 0.25 mg 1 018 alvimopan (ENTEREG) capsule 12 mg 2 018 dextrose 5% and sodium chlor frederick 0.45% with potassium chloride 20 mEq/L premix infusion 2 12/27/2017 enoxaparin (LOVENOX) syringe 40 mg 1 2017 ertapenem (INVANZ) 1000 mg i n 50 mL sodium chloride 0.9% (premix) 1 12/27/2017 fentaNYL (SUBLIMAZE) preserv ative free injection 50 mcg 1 12/27/2017 gabapentin (NEURONTIN) capsule 300 mg 2 haloperidol (HALDOL) injection 1 mg 1 12/27 heparin 5,000 unit/mL inject ion 5,000 Units 1 12/27/2017 HYDROmorphone (DILAUDID) 20 mg/100 mL (0.2 mg/mL) sodium chloride 0.9% (premix) 1 12/27/2017 HYDROmorphone (DILAUDID) injection 0.2 mg 1 12/27/2017 HYDROmorphone (DILAUDID) injection 0.4 mg 1 12/27/2017 ibuprofen (ADVIL,MOTRIN) tablet 600 mg 1 ketorolac (TORADOL) injection 30 mg 1 12/27 Lactated Ringer's (LR) infusion 2 8 naloxone (NARCAN) 0.4 mg/mL injection 0.04-0.4 mg 2 12/27/2017 ondansetron (ZOFRAN) injection 4 mg 2 12/27 sertraline (ZOLOFT) tablet 50 mg 1 12/28/19 18 sodium chloride 0.9% flush 0.5-20 mL 4 12/05 Diet Count Last Ordered Date First Orde red Date ADULT DISCHARGE DIET 1 12/31/2017 Nursing Count Last Ordered Date First Orde red Date DISCHARGE ACTIVITY 3 12/31/2017 DISCHARGE CALL PROVIDER 6 12/31/2017 DISCHARGE DRESSING 2 12/31/2017 OTHER FOLLOW UP 1 12/31/2017 Admission Count Last Ordered Date First Orde red Date ASSIGN PATIENT STATUS 2 12/27/2017 documented in this encounter Care Teams Assembler Plastic Boat Relationship Specialty Start Date End Date Ravi Smith MD PCP - General 11/04/17 09/27/21 Aft, Kianna Machado MD PhD [address] [facility] [address] [place] [address] Surgeon Surgical Oncology 11/22/17 Santiago Gilbert MD [address] [place] [address] Boat Person Gastroenterology 11/22/17 documented as of this encounter
--- OUTSIDE RECORDS SUMMARY | 2024-04-24 13:53 | XMS_ITS | Encounter Summary ---
Author Organization [facility] Healthcare Address [address] [place] [address] Care Team Providers Care Can Dragger Name Role Phone Ravi Smith MD Primary Care Provider [phone] Aftatiana, Kianna Machado MD PhD Unavailable [phone] Santiago Gilbert MD Unavailable [phone] Encounter Details Date Type Department Care Team (Latest Contact Info) Description 01/14/2018 6:06 AM CDT - 01/14/2018 8:06 PM CDT Hospital Encounter [facility] Operating Room [facility] [address] [place] [id number] Aftatiana, Kianna Machado MD PhD [address] [place] [phone] Malignant neoplasm of left female breast, unspecified estrogen receptor status, unspecified site of breast (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 Gender Identity Not on file Sexual Orientation Not on file documented as of this encounter Last Filed Vital Signs Vital Sign Reading Time Taken Comments Blood Pressure 158/70 01/14/2018 7:25 PM CDT Pulse 59 01/14/2018 7:30 PM CDT Temperature 36.4 ??C (97.5 ??F) 01/14/2018 5:20 PM CD T Respiratory Rate 16 01/14/2018 5:20 PM CDT Oxygen Saturation 100% 01/14/2018 7:30 PM CDT Inhaled Oxygen Concentration - - Weight - - Height - - Body Mass Index - - documented in this encounter Discharge Instructions * Discharge Instructions* Kenisha Yang RN - 01/14/2018 6:11 PM CDT Restart Lovenox [...] HERNIA REPAIR Right 1970 ??? TUBAL LIGATION 1992 Prescriptions Prior to [...] MD Breast Surgical Oncology Fellow Pager #: [phone] 01/14/2018 8:31 AM Cosigned by Kianna Bunch MD PhD at 01/14/2018 11:29 AM CDT documented in this encounter Miscellaneous Notes * Perioperative Nursing Note - Kenisha Yang RN - 01/14/2018 6:30 PM CDT Wet read called: no pneumo, line in good placement. Result called to Deborah COY surgery resident. * Perioperative Nursing Note - Kenisha Yang, RN - 01/14/2018 5:58 PM CDT cxr completed, surgery resident at looking at it. Waiting for radiology to call with wet read. * Perioperative Nursing Note - Kenisha Yang, RN - 01/14/2018 5:39 PM CDT Port [...] Breast Needle Localization partial mastectomy (L), Biopsy [place] Lymph Node With Lymphoscintigraphy (L), Insertion Port [...] lymphoscintigraphy. [facility] was then [facility] to [facility] where she underwent needle localization of her [...] down posterior to it. An inferior flap wascreated below the level of the wire and was also taken down posterior to it. Once the superior and inferior flaps were created the medial lateral flaps were made to join these 2 troughs. Once all 4 flaps were created the breast tissue was removed from the posterior attachments using electrocautery.Of note, the dissection was carried down to the pectoralis fascia. The specimen was then marked with a short stitch on the superior margin and a long stitch on the lateral margin and was sent back [facility]. Specimen radiograph demonstrated that the cancer was centrally located within the specimen. Attention was then turned to the wound. Aggressive hemostasis was obtained with electrocautery. The wound was irrigated with copious amounts of sterile saline. The deep dermal layerwas then reapproximated with interrupted 3-0 Vicryl stitches. [...] breast SURGICAL PATHOLOGY Kianna Bunch MD PhD 01/14/2018 1619 B : left breast cancer short stitch [...] Assisting: Allyson Ga MD (fellow) Surgical Team: Maxillofacial Surgeon: Cat Boss RN Maxillofacial Surgeon Relief: Maldonado Parks RN Scrub: Omayra Guzmán RN DATE OF SURGERY : 01/14/2018 Preoperative Diagnosis: Pre-op Diagnosis * Malignant neoplasm of left female breast, unspecified estrogen receptor status, unspecified site of breast (CMS/HCC) [C50.912] Postoperative Diagnosis: Post-op Diagnosis * Malignant neoplasm of left female breast, unspecified estrogen receptor status, unspecified site of breast (CMS/HCC) [C50.912] Procedure: Procedure(s): Biopsy Breast Needle Localization Biopsy [place] Lymph Node With Lymphoscintigraphy Insertion Port A Cath Operative Findings: Clip and wire in specimen xray Estimated Blood Loss: No blood loss documented. Intraoperative Fluids: 800 mls Specimens: ID Type Source Tests Collected by Time A : Left axillary sentinel lymph nodes Tissue Lymph node, sentinel breast SURGICAL PATHOLOGY Kianna Bunch MD PhD 01/14/2018 1619 B : left breast cancer short stitch superior long stitch lateral Tissue Breast, excisional biopsy/ partial mastectomy SURGICAL PATHOLOGY Kianna Bunch MD PhD 01/14/2018 1628 Implants: Implant Name Type Inv. Item Serial No. Hr Administrator Lot No. [id number] No. Used [employer] [id number] POWERPORT CLEARVUE AIRGUARD 8FR 1 LUMEN LIGHTWEIGHT INTERMEDIATE LATEX FREE - [id number] Other - see comments [employer] [id number] POWERPORT CLEARVUE AIRGUARD 8FR 1 LUMEN LIGHTWEIGHT INTERMEDIATE LATEX FREE [employer] [id number] Right 1 Blood/Blood Products Transfused: 0 mls Complications: None Condition on Discharge from the operating room was stable Allyson Ga MD Date: 01/14/2018 Time: 5:26 PM No Resident involved on case Cosigned by Julio C, Kianna Machado MD PhD at 01/15/2018 12:14 PM CDT * Pre-Procedure Instructions - Lori Alarcon NP - 01/09/2018 10:55 AM CDT [facility] for Preoperative Assessment and Planning CPAP Clinic Location: [facility] The night before your surgery: * [...] your surgery: Vitamin E, Fish Oil (Lovaza, Ponsford 3), Herbal medicines, Diet Pills ?? If [...] Non Critical results were discussed with Lyric Setwart RN by Dr. Enriquez on 01/14/2018 at [...] 4:28 PM CDT Comment:Breast Center Narrative PATHOLOGY [facility] - 01/17/2018 4:28 PM CDT EPIC results best viewed via link to PDF [facility] Galilea Muñiz Laboratory of Surgical Pathology [address] [place] [address] SURGICAL PATHOLOGY REPORT FINAL Patient Name: ?? ALEAH GERBER Gender: ??F : ??1955 (Age: 62) Address: ??[address] [place] [address] ??[address] Hospital #: ??[id number] Taken:01/14/2018 Received:01/14/2018 Reported: 01/17/2018 Patient Type: [facility] SDS ?? Service: Surgery Location: [facility] Physician(s): ??Hortencia Warren M.D. Diagnosis: A. Lymph [...] benign breast tissue - See synoptic report 01/17/2018 14:42 By this signature, I attest that [...] for permanents, by Tito Jones MLT, PA ([facility]) Microscopic Description and Comment: The result of [...] and 2 cm from the medial edge. ??Supervising Architect sections as follows: B1-B2 closest medial edge, [...] with wire-guided localization ? Lymph node sampling: ?[place] lymph node(s) ? Tumor site invasive carcinoma: ?9 o'clock ? 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 Tumor size: ?Greatest dimension: 35mm ? Histologic grade (Wilda Histologic Score): ?Tubular differentiation: ??Score 3 ? [...] involvement: ?All lymph nodes are negative ? [place] node evaluation: ?H&E, multiple levels ? Response [...] by the Surgical Pathology Department at [facility] as part of an ongoing auditor/quality program and in compliance with federally mandated [...] determined by the Surgical Pathology Department of [facility]. ??It has not been cleared or approved by the U. S. Food and Drug Administration. IMAGES AND SCANNED DOCUMENTS, IF INCLUDED, ONLY VIEWABLE IN PDF VERSION OF REPORT us Kianna Bunch MD PhD LAB PATHOLOGY ORDERABLES F inal Result PATHOLOGY [facility] [address]rd Floor [place], [place] [phone] * [place] Fluoroscopy < 1 Hour (01/14/2018 4:01 PM CDT) Narrative RAD_PACS_[facility] - 01/14/2018 4:04 PM CDT The images from this study are not interpreted by Radiology. ??Please refer to the physician's procedure / OR operative note. us Kianna Bunch MD PhD IMG FLUOROSCOPY PROCEDURES Final Result RAD_PACS_[facility] documented in this encounter Visit Diagnoses Diagnosis Malignant neoplasm of left female breast, unspecified estrogen receptor status, unspecified site of breast (HCC) documented in this encounter Administered Medications Inactive Administered Medications - up to 3 most recent administrations Medication Order MAR Action Action Date Dose Rate Site fentaNYL (SUBLIMAZE) preservative free injection 50 mcg 50 mcg, intravenous, Every 10 min PRN, 1st line for pain, Starting on Sat01/14/18 at 1725, Phase I, Notify Anesthesiologist if total PACU dose reaches 100 mcg and pain score 5/10 or more., Indications: PainIndications:Pain Given 01/14/2018 5:35 PM CDT 50 mcg HYDROmorphone (DILAUDID) injection 0.2 mg 0.2 mg, [...] Given 01/14/2018 6:18 PM CDT 0.2 mg Lactated Ringer's (LR) infusion 30 mL/hr, intravenous, Continuous, Starting on Sat01/14/18 at 1400, Pre-Op New Bag 01/14/2018 10:18 AM CDT 30 mL/hr 30 mL/ hr Lactated Ringer's (LR) infusion 125 mL/hr, intravenous, Continuous, Starting on Sat01/14/18 at 1445 New Bag 01/14/2018 3:01 PM CDT oxyCODONE-acetaminophen (PERCOCET) 5-325 mg per tablet 1 tablet 1 tablet, oral, Once, On Sat01/14/18 at 1930, For 1 dose, Phase I & Post-op Floor, Indications: PainIndications:Pain Given 01/14/2018 7:20 PM CDT 1 tablet sodium chloride 0.9% flush 0.5-20 mL 0.5-20 [...] CRNA)1718 (Continued from OR - Provider: Kenisha Yang, LYDIA)1936 (Stopped - Provider: Kenisha Yang RN) Lactated [...] Kenisha Yang RN)1853 (Given - Provider: Kenisha Yang RN) isosulfan blue (LYMPHAZURIN) 1 % injection (CANCELED) As needed, Starting on Sat01/14/18 at 1532, Intra-Op, Indications: Diagnostic Radiography 153 (Given - Provid er: Kianna Bunch MD [...] 0.5 % (5 mg/mL) preservative free injection 01/14/2018 ceFAZolin (ANCEF) injection 01/14/2018 heparin lock flush (porcine) 10 unit/mL injection 1 01/14/2018 HYDROmorphone (DILAUDID) injection 0.4 mg 1 01/14/2018 isosulfan blue (LYMPHAZURIN) 1 % injection 01/14/2018 Lactated Ringer's (LR) infusion 3 8 naloxone (NARCAN) 0.4 mg/mL injection 0.04-0.4 mg 2 01/14/2018 ondansetron (ZOFRAN) injection 4 mg 2 01/14 sodium chloride 0.9 % irrigation 01/15/20 18 sodium chloride 0.9% flush 0.5-20 mL 3 01/04 Diet Count Last Ordered Date First Orde red Date ADULT DISCHARGE DIET 1 01/14/2018 Nursing Count Last Ordered Date First Orde red Date DISCHARGE ACTIVITY 3 01/14/2018 DISCHARGE CALL PROVIDER 5 01/14/2018 DISCHARGE DRESSING 4 01/14/2018 documented in this encounter Care Teams Can Dragger Relationship Specialty Start Date End Date Ravi Smith MD PCP - General 11/04/17 09/27/21 Aft, Kianna Machado MD PhD [address] [place] [address] Surgeon Surgical Oncology 11/22/17 Santiago Gilbert MD [address] [place] [address] Cement Mixer Gastroenterology 11/22/17 documented as of this encounter
--- OUTSIDE RECORDS SUMMARY | 2024-04-24 13:53 | XMS_ITS | Encounter Summary ---
Author Organization [facility] Address [address] [place] [address] Phone Care Team Providers Care E Commerce Analyst Name Role Phone Ravi Smith MD Primary Care Provider [phone] Kianna Bunch MD PhD Unavailable [phone] Santiago Gilbert MD Unavailable [phone] Reason for Referral * Diagnostic Imaging (Routine) - Closed Specialty Diagnoses / Procedures Referred By Vijaya simpson Referred To Contact Diagnoses Invasive ductal carcinoma of left breast (HCC) Procedures NM Lymphoscintigraphy (Breast) Left Kianna Bunch MD PhD Phone: tel: fax: [address] [address] Referral ID Status Reason Start Date Expiration Date Visits Re quested Visits Authorized [id number] Closed 12/05/2017 06/16/2019 2 2 * Diagnostic Imaging (Routine) - Closed Specialty Diagnoses / Procedures Referred By Vijaya simpson Referred To Contact Diagnoses Invasive ductal carcinoma of left breast (HCC) Procedures Mammo Guided Localization Breast Left Kianna Bunch MD PhD Phone: tel: fax: [address] [place] [address] Referral ID Status Reason Start Date Expiration Date Visits Re quested Visits Authorized [id number] Closed 12/05/2017 06/16/2019 1 1 Encounter Details Date Type Department Care Team (Late st Contact Info) Description 12/05/2017 Orders Only 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 Garcia (diagnostic residential sales) also participated in this examination. Procedure Note [...] (breast imaging fellow) and Dr. Garcia (diagnostic residential sales) also participated in this examination. IMPRESSION: Successful wire localization of the area of interest within the LEFT breast using mammographic guidance. Electronically signed by: Perla Rodriguez M.D. us Kianna Bunch MD PhD IMG MAMMO PROCEDURES Final Result * NM Lymphoscintigraphy (Breast) Left (01/14/2018 8:25 AM CDT) Anatomical Region Laterality Modality Breast N/A Nuclear Medicine 01/14/2018 9:38 AM CDT Impressions 01/14/2018 6:07 PM CDT Krypton node(s) identified as described above for subsequent [...] 1 node located in left axilla. IMPRESSION: Krypton node(s) identified as described above for subsequent intraoperative removal with gamma probe guidance. Electronically signed by: Eboni oRbles M.D. Kianna Bunch MD PhD IMG NM PROCEDURES Final Re sult documented in this encounter Visit Diagnoses Diagnosis Invasive ductal carcinoma of left breast (HCC)- Primary Invasive ductal carcinoma of left breast (HCC) Invasive ductal carcinoma of left breast (HCC) documented in this encounter Care Teams E Commerce Analyst Relationship Specialty Start Date End Date Ravi Smith MD PCP - General 11/04/17 09/27/21 Aft, Kianna Machado MD PhD [address] [place] [address] Surgeon Surgical Oncology 11/22/17 Santiago Gilbert MD [address] [place] [address] Plate Stacker Hand Gastroenterology 11/22/17 documented as of this encounter
--- OUTSIDE RECORDS SUMMARY | 2024-04-24 13:53 | XMS_ITS | Encounter Summary ---
Author Organization [facility] Address [address] [place] [address] Phone Care Team Providers Care Senior Property Accountant Name Role Phone Ravi Smith MD Primary Care Provider [phone] Aft, Kianna Machado MD PhD Unavailable [phone] Santiago Gilbert MD Unavailable [phone] Encounter Details Date Type Department Care Team (Late st Contact Info) Description 12/03/2017 Telephone [facility] Oncology [address] [facility] [address] [place] [address] ClydeShruti Social History Tobacco Use Types Packs/Day Years Used Date Smoking Tobacco: Never Smokeless Tobacco: Never Alcohol Use Standard Drinks/Week Comments Yes 0 (1 standard drink = 0.6 oz pur e alcohol) socially Comments No Sex and Gender Information Value Date Recorded Sex Assigned at Not on file 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 Ventura would like her appt changed to 315 on the current day she is scheduled for 30 minute visit.for 12/24 documented in this encounter Plan of Treatment Not on file documented as of this encounter Visit Diagnoses Not on filedocumented in this encounter Care Teams Senior Property Accountant Relationship Specialty Start Date End Date Ravi Smith MD PCP - General 11/04/17 09/27/21 Aft, Kianna Machado MD PhD [address] [place] [address] Surgeon Surgical Oncology 11/22/17 Santiago Gilbert MD [address] [place] [address] Board Stacker Gastroenterology 11/22/17 documented as of this encounter
--- OUTSIDE RECORDS SUMMARY | 2024-04-24 13:53 | XMS_ITS | Encounter Summary ---
Author Organization [facility] Address [address] [place] [address] Phone Care Team Providers Care Electricians Top Helper Name Role Phone Ravi Smith MD Primary Care Provider [phone] Aft, Kianna Machado MD PhD Unavailable [phone] Santiago Gilbert MD Unavailable [phone] Encounter Details Date Type Department Care Team (Late st Contact Info) Description 11/25/2017 Orders Only [facility] Oncology [address] [phone] Anahy Davies, BELLAA Social History Tobacco Use Types Packs/Day Years Used Date Smoking Tobacco: Never Smokeless Tobacco: Never Alcohol Use Standard Drinks/Week Comments Yes 0 (1 standard drink = 0.6 oz pur e alcohol) socially Comments No Sex and Gender Information Value Date Recorded Sex Assigned at Not on file Legal Sex Female 1:06 AM TAPPER HAND Gender Identity Not on file Sexual Orientation Not on file documented as of this encounter Plan of Treatment Not on file documented as of this encounter Visit Diagnoses Not on filedocumented in this encounter Historical Medications * This list may reflect changes made after this encounter. BREO ELLIPTA 100-25 mcg/dose diskus inhalerIndication s:Bronchospasm Prevention with COPD Inhale every morning 1 11/22/2017 10/20/2018 diazePAM (VALIUM) 5 mg tablet 0 11/25/2017 12/10/2017 added in this encounter Care Teams Electricians Top Helper Relationship Specialty Start Date End Date Ravi Smith MD PCP - General 11/04/17 09/27/21 Aft, Kianna Machado MD PhD [address] [place], [place] [id number] Surgeon Surgical Oncology 11/22/17 Santiago Gilebrt MD [address] [place], [place] [id number] Lead Radiation Therapist Gastroenterology 11/22/17 documented as of this encounter
--- OUTSIDE RECORDS SUMMARY | 2024-04-24 13:53 | XMS_ITS | Encounter Summary ---
Author Organization [facility] Address [address] [place] [address] Care Team Providers Care Nursery School Attendant Name Role Phone Ravi Smith MD Primary Care Provider [phone] Aft, Kianna Machado MD PhD Unavailable [phone] Santiago Gilbert MD Unavailable [phone] Encounter Details Date Type Department Care Team (Late st Contact Info) Description 01/14/2018 2:52 PM CDT Anesthesia Event [facility] ([facility]) [address] [place] [address] Antony Linares MD [address] [place] [address] Meche Borjas NP [address] [facility] [id number] [place] [address] Anesthesia Record Procedure Summary Procedure Name Responsible Anesthesiologist Anesthesia Start Time Anesthesia Stop Time Biopsy Breast Needle Localization (Left: Breast) Antony Linares MD 01/14/18 1452 01/14/18 1726 Events Date Time Event Comment 01/14/2018 1406 1452 In Room 1452 An Start 1452 An Start Data 1458 An Induction The patient was reevaluated immediately before moderate or deep sedation use and before anesthesia induction. 1500 An LMA 1502 Anesthesia Ready 1532 Proc Start 1532 Incision Start 1715 Proc Fin 1716 Airway Removed 1716 an stop data 1717 Out of Room 1726 Handoff to RN I completed my handoff [...] disposition at the time of handoff: PACU 172 An Stop Meds Name Total midazolam PF 2 mg lidocaine 1 % PF 50 mg fentaNYL 200 mcg propofol 200 mg HYDROmorphone 2 mg/mL 0.4 mg ondansetron PF (ZOFRAN) 2 mg/mL injectio n 4 mg famotidine PF 20 mg dexamethasone 4 mg/ml 4 mg ceFAZolin 2,000 mg ePHEDrine 5 mg Lactated Ringer's (LR) infusion 0 mL * Agents Name O2% N2O O2 N2O Air Sevoflurane Inspired Sevoflurane * Blood No blood administrations on file. Lines, Drains, and Airways Type Details Placement Removal RETIRED Surgical Site 12/27/17; 1703; Abdomen; 03/03/18; Removal date unknown/not present on admission 12/27/17 1703 by Mora Hernandez RN 03/03/18 0000 by Reina Grullon RN Implanted Port Placement Date: 01/14/18; Type: Power; Orientation: Right; Location: Chest; Inserted by: DR BUNCH; Removal Time: 04/09/19; Removal Reason: 0848 01/14/18 0000 by Cat Boss 04/09/19 0848 by Deana Soria, LYDIA Peripheral IV Placement Date: 01/14/18; Placement Time: 730; Catheter Size: 22 G; Orientation: Left; Location: Hand; Site Prep: Chlorhexidine; Inserted by: Isaura Simon RN; Insertion Attempts: 1; Patient Tolerance: Tolerated well; Removal Date: 01/14/18; Removal Time: 193501/14/18 07 by Susan Simon RN 01/14/18 193 by Kenisha Yang RN Supraglottic Airway Placement Date: 01/14/18; Placement Time: 1506 (created via procedure documentation); Mask Ventilation: 0; Size: 5; Insertion Attempts: 1; Removal Date: 01/14/18; Removal Time: 17101/14/18 1506 by Chalo Lucas CRNA 01/14/18 1716 by Tomas King CRNA RETIRED Surgical Site 01/14/18; 1605; Ri ght; Chest; 03/24/18; Removal date unknown/not present on admission 01/14/18 1605 by Cat Boss 03/24/18 0000 by Reina Grullon RN RETIRED Surgical Site 01/14/18; 1715; Le ft; Breast; 03/24/18; Removal date unknown/not present on admission 01/14/18 1715 by Cat Boss 03/24/18 0000 by Reina Grullon RN RETIRED Surgical Site 01/14/18; 1724; Le ft; Axilla; 03/24/18; Removal date unknown/not present on admission 01/14/18 1724 by Cat Boss 03/24/18 0000 by Reina Grullon RN documented in this encounter Social History Tobacco Use Types Packs/Day Years Used Date Smoking Tobacco: Former Cigarettes 2015 Smokeless Tobacco: Never Alcohol Use Standard Drinks/Week Comments Yes 0 (1 standard drink = 0.6 oz pur e alcohol) socially Comments No Sex and Gender Information Value Date Recorded Sex Assigned at Not on file 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 Gender Identity Not on file Sexual Orientation Not on file documented as of this encounter OR Notes * Anesthesia Postprocedure Evaluation - Antony Linares MD - 01/14/2018 7:23 PM CDT Patient: Aleah Gerber Procedure Summary Date: 01/14/18 Room / Location: [facility] CAM OR POD 4 ROOM F / [facility] CAM OR POD 4 Anesthesia Start: 1451 Anesthesia Stop: 1725 Procedures: Biopsy Breast Needle Localization (Left Breast) Biopsy [place] Lymph Node With Lymphoscintigraphy (Left Chest) Insertion Port A Cath (Right Chest) Diagnosis: Malignant neoplasm of left female breast, unspecified estrogen receptor status, unspecified site ofbreast (CMS/HCC) (breast cancer) Surgeon: Kianna Bunch MD PhD Responsible Provider: Antony Linares MD Anesthesia Type: general ASA Status: 2 Anesthesia Type: general Last vitals BP 165/75 Pulse 60 Temp 36.4 ??C (97.5 ??F) (Tympanic) Resp 16 SpO2 99% Anesthesia Post Evaluation Patient location during evaluation: PACU Patient participation: complete - patient participated Level of consciousness: fully awake Pain score: 6 Pain management: satisfactory to patient Airway patency: patent and adequate Evidence of recall: no Anesthetic complications: no Cardiovascular status: hemodynamically stable and acceptable Respiratory status: acceptable and room air Hydration status: euvolemic Pt is: normothermic Nausea/Vomiting status: none * Anesthesia Procedure Notes - Chalo Lucas CRNA - 01/14/2018 3:06 PM CDTAssociated Order(s): ANESTHESIA INTUBATION Airway Patient location: OR Urgency: elective Date/time: 01/14/2018 3:06 PM Indications for airway management: anesthesia Staff: Placed by: CENTRAL OFFICE FRAME WIRER: CHALO LUCAS Emergent airway documentation: Risks and benefits discussed: yes Consent obtained: yes Consent given by: patient Airway prep: Preoxygenated: yes Mask difficulty assessment: 0 - not attempted Spontaneous ventilation during airway: present Sedation level during airway: deep Final airway details: Final airway type: supraglottic airway Final supraglottic airway: IGel SGA size: 5 Number of attempts: 1 * Anesthesia Preprocedure Evaluation - Ericka Brock MD - 01/09/2018 10:41 AM CDT [facility] Planning Preoperative Evaluation Record Telephone Preoperative Evaluation ([facility]) - TELEPHONE ONLY, NO PHYSICAL EXAM Anesthesia Evaluation Aleah Gerber is a 62 y.o. female Procedure(s): Biopsy Breast Needle Localization Biopsy [place] Lymph Node With Lymphoscintigraphy Insertion Port A Cath HISTORY HPI Aleah Gerber is a 62 y.o. female who is being evaluated prior to undergoing Left Breast biopsy and Port placement for Breast CA . Past Medical History Neurological + TIA Number of TIA episodes: 1. Date of last TIA: 2007. + Psychiatric history - anxiety and depression Pertinent negatives: seizures; neuromuscular disease; CVA/stroke; CEA; ICA stenosis; dementia/mild cognitive impairment and carotid artery stent Cardiovascular Pertinent negatives: hypertension ; CAD ; MD ; CABG ; valvular heart disease; valve replacement; atrial fibrillation; arrhythmia; pacemaker/ICD; PVD; DVT/PE; negative for CHF; drug-eluting stent(s); bare metal stent(s) and coronary angioplasty Respiratory + COPD - chronic bronchitis. Dyspnea frequency: throughout the day. Rescue inhaler use: never. Hospitalizations/ER in the last year: 0. Most recent exacerbation: 2015. + Asthma Dyspnea frequency: throughout the day. Rescue inhaler use: never. Hospitalizations/ER in the last year: 0. Most recent exacerbation: 2015. Pertinent negatives: sleep apnea (VIOLETTE); pulmonary hypertension; no O2 use outside the hospital; no history of oral steriod use; no history of oral steroid use; no prior intubation for respiratory failure; no prior intubation for respiratory failure due to asthma and non-smoker Hepatic / Heme Pertinent negatives: [...] disorder Endocrine / Other + Obesity (BMI >30)- morbid obesity (BMI>40). + Cancer history- current cancer. Cancer type: Colon CA dxd 11/2017 s/p hemicolectomy 12/2017; Left breast CA dxd 11/2017. Pertinent negatives: diabetes mellitus; thyroid disease; rheumatological disease and transplanted organ Functional Capacity Functional capacity: 4-6 METs Comments: Pt states able to walk 1-2 blocks or climb 1-2 flights of stairs without SOB/CP. Review of Systems + pedal edema (Intermittent BLE-- No worse recently.) + easy bruising (d/t lovenox recently-- Denies excessive) + vision loss (Wears corrective reading glasses.) + heartburn (Recent reflux s/p ileus/hospitalization) + chipped/loose teeth (Loose left lower molar) + abdominal pain (Recent abdominal pain d/t ileus-- Resolved since discharged from hospital 01/06/2018) Pertinent negatives: productive cough; wheezing; SOB; recent [...] complete. Additional comments: Aleah Gerber is a 62 y.o. female who is being evaluated prior to undergoing a low cardiac risk surgery. Revised Cardiac Risk Index factors are (history of cerebrovascular diseaseand none) for a total RCRI of 1 out of 6. Functional capacity is 4-6 METs. Comorbidities include: TIA (2007), obesity (BMI= 36.9), high risk for VIOLETTE, h/o Breast CA (2018), h/o colon CA (2018) Obstructive sleep apnea (VIOLETTE) screening status is STOP-Bang=5 suggesting HIGH RISK for VIOLETTE. Blood bank needs for day of procedure: No type and screen needed CBC, BMP done 01/05/2018-- H/H= 10.8/33.5 Pending labs/tests include: None This assessment was performed via telephone. Therefore the physical exam has been deferred to the day of surgery team. Pt on lovenox daily s/p hemicolectomy 12/2017. No LMWH doses should be given within 24 hours of surgery. The patient was provided with preoperative instructions for their medications. The patient was informed that instructions regarding stopping any therapeutic antiplatelet or anticoagulant medications will be provided by the surgeon's office. The patient was instructed to shower/bathe the night priorand the morning of the planned procedure using an antibacterial soap. Patient instructions were provided via telephone and in writing sent via [employer]PS mail. Patient verbalized understanding of preoperative plan. TPAP assessment complete. Preoperative evaluation performed by Lori Alarcon NP on 01/09/18 at 11:04 AM. . Patient Active Problem List Diagnosis ??? [...] REPAIR Right 1970 ??? TUBAL LIGATION 1991 OB History No data available Allergies Allergen Reactions ??? Tetanus Vaccines And Toxoid Swelling and Rash HOME MEDICATIONS : acetaminophen (TYLENOL) 325 mg tablet ALPRAZolam (XANAX) 0.25 mg tablet BREO ELLIPTA 100-25 mcg/dose diskus inhaler cholecalciferol (VITAMIN D3) 2,000 unit capsule oxyCODONE (OXY-IR) 5 mg capsule polyethylene glycol (MIRALAX) 17 gram packet sertraline (ZOLOFT) 50 mg tablet bisacodyl EC (DULCOLAX EC) 5 mg EC tablet enoxaparin (LOVENOX) 40 mg/0.4 mL syringe ondansetron (ZOFRAN) 8 mg tablet psyllium 0.52 gram capsule No current facility-administered medications for this encounter. Current Outpatient Prescriptions: ??? acetaminophen (TYLENOL) 325 mg tablet ??? ALPRAZolam (XANAX) 0.25 mg tablet ??? BREO ELLIPTA 100-25 mcg/dose diskus inhaler ??? cholecalciferol (VITAMIN D3) 2,000 unit capsule ??? oxyCODONE (OXY-IR) 5 mg capsule ??? polyethylene glycol (MIRALAX) 17 gram packet ??? sertraline (ZOLOFT) 50 mg tablet ??? bisacodyl EC (DULCOLAX EC) 5 mg EC tablet ??? enoxaparin (LOVENOX) 40 mg/0.4 mL syringe ??? ondansetron (ZOFRAN) 8 mg tablet ??? psyllium 0.52 gram capsule Social History Smoking Status ??? Former Smoker ??? Start date: 1972 ??? Quit date: 2015 Smokeless Tobacco ??? Never Used Alcohol Use ??? Yes Comment: socially Drug Use No Family History Problem Relation Age of Onset ??? Prostate cancer Father 60 ??? Pancreatic cancer Sister 40 ??? Liver cancer Maternal Grandmother 80 ??? Heart attack Mother 70 PAT Physical Exam Additional comments: Telephone assessment has been performed and DOS physical exam will need to be performed by anesthesia provider. There were no vitals filed for this visit. PT: No results found for requested labs within last 720 hours. INR: No results found for requested labs within last 720 hours. APTT: No results found for requested labs within last 720 hours. Hgb A1C: No results found for requested labs within last 720 hours. CBC RBC: 01/05/2018: 3.70 M/cumm* RDW: No results found for requested labs within last 720 hours. MCHC: 01/05/2018: 32.2 g/dL* MCH: 01/05/2018: 29.2 pg MCV: 01/05/2018: 90.5 fL Hct: 01/05/2018: 33.5 %* Hgb: 01/05/2018: 10.8 g/dL* WBC: 01/05/2018: 8.8 K/cumm MPV: 01/05/2018: 10.3 fL Platelets: 01/05/2018: 197 K/cumm RDW CV: 01/05/2018: 13.5 % RDW Sd: 01/05/2018: 44.4 fL BMP Glucose: 01/05/2018: 125 mg/dL Calcium: 01/05/2018: 9.1 mg/dL Sodium: 01/05/2018: 142 mmol/L Potassium: 01/05/2018: 3.8 mmol/L CO2: 01/05/2018: 28 mmol/L Chloride: 01/05/2018: 106 mmol/L BUN: 01/05/2018: 7 mg/dL* Creatinine: 01/05/2018: 0.96 mg/dL DOS Physical Exam Medical history, medications, and allergies reviewed. Attestation: This PAT evaluation 01/09/2018. Airway Exam: Mallampati: III Cervical ROM: FROM Cardiovascular Exam: Rate: regular Rhythm: regular Negative for Murmur No extra heart sounds appreciated Negative for peripheral edema JVD negative Negative for weak pulses Pulmonary Exam: LCTA, bilat EENT Exam: trachea midline Dental Exam: Appears intact Skin Exam: Skin is warm. Capillary refill is 3-5 seconds. Turgor is normal. Abdominal Exam: Abdomen is soft. Bowel sounds are present. Anterior Fontanelles: Fontanelles are flat. Current state: Patient's current state is cooperative. Anesthesia Plan ASA 2 My patient is approved for the Anesthesia Controlled Medication protocol when under care of a CENTRAL OFFICE FRAME WIRER Planned anesthesia: General Induction: Induction: intravenous. Postoperative Plan: Postoperative administration opioids intended. No postoperative mechanical ventilation intended. Patient's planned disposition post procedure is Outpatient. Informed Consent: Discussed plan with CENTRAL OFFICE FRAME WIRER. Anesthesia plan and risks discussed with patient. [...] Procedure Name Priority Date/Time Associated Diagnosis Comments IL AN PROCEDURE PLACEHOLDER Routine 01/14/2018 3:06 PM CDT Procedure Note - Chalo Lucas CRNA - 01/14/2018 3:06 PM CDTThis note is in progress. Airway Patient location: OR Urgency: elective Date/time: 01/14/2018 3:06 PM Indications for airway management: anesthesia Staff: Placed by: CENTRAL OFFICE FRAME WIRER: CHALO LUCAS Emergent airway documentation: Risks and benefits discussed: yes Consent obtained: yes Consent given by: patient Airway prep: Preoxygenated: yes Mask difficulty assessment: 0 - not attempted Spontaneous ventilation during airway: present Sedation level during airway: deep Final airway details: Final airway type: supraglottic airway Final supraglottic airway: IGel SGA size: 5 Number of attempts: 1 IL AN ELECTIVE SUPRAGLOTTIC AIRWAY Routine 01/14/2018 3:06 PM CDT Procedure Note - Chalo Lucas CRNA - 01/14/2018 3:06 PM CDTThis note is in progress. Airway Patient location: OR Urgency: elective Date/time: 01/14/2018 3:06 PM Indications for airway management: anesthesia Staff: Placed by: CENTRAL OFFICE FRAME WIRER: CHALO LUCAS Emergent airway documentation: Risks and benefits discussed: yes Consent obtained: yes Consent given by: patient Airway prep: Preoxygenated: yes Mask difficulty assessment: 0 - not attempted Spontaneous ventilation during airway: present Sedation level during airway: deep Final airway details: Final airway type: supraglottic airway Final supraglottic airway: IGel SGA size: 5 Number of attempts: 1 documented in this encounter Visit Diagnoses Not on filedocumented in this encounter Administered Medications Inactive Administered Medications - up to 3 most recent administrations Medication Order MAR Action Action Date Dose Rate Site ceFAZolin (ANCEF) injection As needed, Starting on Sat01/14/18 at 1508, Anesthesia Intra-op Given 01/14/2018 3:08 PM CDT 2,000 mg dexamethasone (DECADRON) injection Administer over 1 Minutes, As needed, Starting on Sat01/14/18 at 1504, Anesthesia Intra-op Given 01/14/2018 3:04 PM CDT 4 mg ePHEDrine injection As needed, Starting on Sat01/14/18 at 1509, Anesthesia Intra-op Given 01/14/2018 3:09 PM CDT 5 mg famotidine (PEPCID) injection Administer over 2 Minutes, As needed, heartburn, Starting on Sat01/14/18 at 1504, Anesthesia Intra-op Given 01/14/2018 3:04 PM CDT 20 mg fentaNYL (SUBLIMAZE) preservative free injection intravenous, As needed, Starting on Sat01/14/18 at 1505, Anesthesia Intra-op Given 01/14/2018 3:55 PM CDT 25 mcg Given 01/14/2018 3:40 PM CDT 25 mcg Given 01/14/2018 3:35 PM CDT 25 mcg HYDROmorphone (DILAUDID) injection intravenous, As needed, Starting on Sat01/14/18 at 1612, Anesthesia Intra-op Given 01/14/2018 4:12 PM CDT 0.4 mg Lactated Ringer's (LR) infusion 125 mL/hr, intravenous, Continuous, Starting on Sat01/14/18 at 1445 New Bag 01/14/2018 3:01 PM CDT lidocaine PF (XYLOCAINE) 10 mg/mL (1 %) preservative free injection As needed, Starting on Sat01/14/18 at 1458, Anesthesia Intra-op Given 01/14/2018 2:58 PM CDT 50 mg midazolam (VERSED) preservative free injection intravenous, As needed, Starting on Sat01/14/18 at 1452, Anesthesia Intra-op Given 01/14/2018 2:52 PM CDT 2 mg ondansetron (ZOFRAN) injection intravenous, As needed, nausea, vomiting, Starting on Sat01/14/18 at 1520, Anesthesia Intra-op Given 01/14/2018 3:20 PM CDT 4 mg propofol (DIPRIVAN) IV intravenous, As needed, Starting on Sat01/14/18 at 1458, Anesthesia Intra-op Given 01/14/2018 3:00 PM CDT 50 mg Given 01/14/2018 2:58 PM CDT 150 mg documented in this encounter Orders Procedures Count Last Ordered Date First Orde red Date ANESTHESIA INTUBATION 1 01/14/2018 documented in this encounter Care Teams Nursery School Attendant Relationship Specialty Start Date End Date Ravi Smith MD PCP - General 11/04/17 09/27/21 Aft, Kianna Machado MD PhD [address] [place] [address] Surgeon Surgical Oncology 11/22/17 Santiago Gilbert MD [address] [place] [address] Pain Management Nurse Gastroenterology 11/22/17 documented as of this encounter
--- OUTSIDE RECORDS SUMMARY | 2024-04-24 13:53 | XMS_ITS | Encounter Summary ---
Author Organization [facility] Healthcare Address [address] [place] [address] Care Team Providers Care Chicken Buyer Name Role Phone Ravi Smith MD Primary Care Provider [phone] Reason for Referral * Diagnostic Imaging (Routine) - Closed Specialty Diagnoses / Procedures Referred By Vijaya simpson Referred To Contact Diagnoses Abnormal mammogram Procedures Mammo Post Clip Placement Left Aguila Loza DO Phone: tel: fax: [address] [phone] Referral ID Status Reason Start Date Expiration Date Visits Re quested Visits Authorized [id number] Closed 11/12/2017 05/24/2019 1 1 * Diagnostic Imaging (Routine) - Closed Specialty Diagnoses / Procedures Referred By Vijaya simpson Referred To Contact Diagnoses Abnormal mammogram Procedures US Guided Breast Biopsy Left Aguila Loza DO Phone: tel: fax: [address] [phone] Referral ID Status Reason Start Date Expiration Date Visits Re quested Visits Authorized [id number] Closed 11/05/2017 11/12/2017 1 1 Reason for Visit * Diagnostic Imaging (Routine) - Closed Specialty Diagnoses / Procedures Referred By Vijaya t Referred To Contact Diagnoses Abnormal mammogram Procedures US Guided Breast Biopsy Left Aguila Loza DO Phone: tel: fax: [address] [phone] Referral ID Status Reason Start Date Expiration Date Visits Re quested Visits Authorized [id number] Closed 11/05/2017 11/12/2017 1 1 Encounter Details Date Type Department Care Team (Latest Contact Info) Description 11/12/2017 1:23 PM CDT - 11/12/2017 11:59 PM CDT Hospital Encounter [facility] Breast Imaging [facility] [address] [place] [address] Aguila Loza DO [address] [address] Abnormal mammogram Discharge Disposition: Discharge to home or self care Social History Tobacco Use Types Packs/Day Years Used Date Smoking Tobacco: Never Assessed Comments Unknown Sex and Gender Information Value Date Recorded Sex Assigned at Not on file 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 Email Manager: Elie Bradley MD Sedation/Anesthesia: Local Diagnosis: Abnormal mammogram Procedure Findings: See full report to follow Complications: None Estimated Blood Loss: Minimal Specimens: Breast tissue cores, submitted to surgical pathology Condition: Stable documented in this encounter Plan of Treatment Not on file documented as of this encounter Procedures Procedure Name Priority Date/Time Associated Diagnosis Comments MAMM POST CLIP PLACEMENT LEFT Schedule Routine, Read Routine (OP Routine) 11/12/2017 3:34 PM CDT Abnormal mammogram US GUIDED BREAST BIOPSY LEFT Schedule Routine, Read Routine (OP Routine) 11/12/2017 3:14 PM CDT Abnormal mammogram SURGICAL PATHOLOGY Routine 11/12/2017 3:06 PM CDT Abnormal mammogram documented in this encounter Results * Mammo Post Clip Placement Left (11/12/2017 3:34 PM CDT) Anatomical Region Laterality Modality Breast Left Mammography 11/12/2017 3:47 PM CDT Addenda Addendum by Perla Azar MD on 11/14/2017 12:57 PM CDT ADDENDUM Addendum #1 issued at 11/14/2017 10:44 AM by MARKEL Newton, RN for Dr. Perla Azar: Histopathology from the core needle biopsy of the area of interest in the LEFT breast demonstrates invasive ductal carcinoma, linear dimension = 14 mm, histologic grade 3/3. ??This is a malignant finding and requires surgical intervention. The patient was informed of the biopsy results and recommendations by Tonny Broussard, RN, BSN of the [facility] on 11/13/2017. The patient has an appointment on 11/18/[address] Kianna Bunch who will direct surgical management. NOTE: ??Breast MRI is recommended. Edited by: Tonny Broussard Electronically signed by: Perla Azar M.D. Impressions 11/13/2017 2:37 PM CDT Successful core needle biopsy of the LEFT breast. ??Pathology is pending. Electronically signed by: Perla Azar M.D. Narrative 11/13/2017 2:37 PM CDT EXAMINATION: LEFT BREAST CORE BIOPSY UTILIZING SONOGRAPHIC GUIDANCE, PLACEMENT OF A BIOPSY TISSUE MARKER CLIP, AND LEFT FULL FIELD DIGITAL POST-PROCEDURE MAMMOGRAM HISTORY: ??Abnormal breast imaging. ??62-year-old woman with recent diagnosis of colon cancer. ??Recent CT of the chest showed a left breast mass for which she now undergoes biopsy. ??Ultrasound guided core needle biopsy is requested to evaluate for malignancy. COMPARISON: 11/05/2017. PROCEDURE AND FINDINGS: The risks and potential benefits of the procedures were discussed with the patient and written informed consent was obtained. After sterile preparation of the skin, 1% lidocaine was utilized for local anesthesia. ??A small skin incision was made with a #11 scalpel blade. ??A 12-gauge spring-loaded ??biopsy needle was then advanced through the skin incision to the edge of the lesion of interest at the medial left breast from a medial approach utilizing sonographic guidance. A total of 3 tissue cores were obtained through the lesion. An UltraClip ribbon-shaped tissue marker clip was then placed at the biopsy site. Hemostasis was achieved. A sterile bandage and an ice pack were applied. The patient tolerated the procedure well and there was no evidence of immediate complication. The patient was given verbal as well as written post procedural instructions prior to release from the department. ??The tissue cores were submitted to surgical pathology in formalin for histologic analysis. The patient tolerated the procedure well and without evidence of significant immediate complication. The patient was given verbal as well as written post procedural instructions prior to release from the department. ??A two-view LEFT digital mammogram obtained post procedure demonstrates that the tissue marker clip is in expected position. The attending radiologist, Dr. Azar, was present throughout the entire procedure. ??Dr. Bradley (breast imaging fellow) and Dr. Lutz (diagnostic vice president of software engineering) also participated in this examination. Procedure Note Perla Azar MD - 11/13/2017 EXAMINATION: LEFT BREAST CORE BIOPSY UTILIZING SONOGRAPHIC GUIDANCE, PLACEMENT OF A BIOPSY TISSUE MARKER CLIP, AND LEFT FULL FIELD DIGITAL POST-PROCEDURE MAMMOGRAM HISTORY: Abnormal breast imaging. 62-year-old woman with recent diagnosis of colon cancer. Recent CT of the chest showed a left breast mass for which she now undergoes biopsy. Ultrasound guided core needle biopsy is requested to evaluate for malignancy. COMPARISON: 11/05/2017. PROCEDURE AND FINDINGS: The risks and potential benefits of the procedures were discussed with the patient and written informed consent was obtained. After sterile preparation of the skin, 1% lidocaine was utilized for local anesthesia. A small skin incision was made with a #11 scalpel blade. A 12-gauge spring-loaded biopsy needle was then advanced through the skin incision to the edge of the lesion of interest at the medial left breast from a medial approach utilizing sonographic guidance. A total of 3 tissue cores were obtained through the lesion. An UltraClip ribbon-shaped tissue marker clip was then placed at the biopsy site. Hemostasis was achieved. A sterile bandage and an ice pack were applied. The patient tolerated the procedure well and there was no evidence of immediate complication. The patient was given verbal as well as written post procedural instructions prior to release from the department. The tissue cores were submitted to surgical pathology in formalin for histologic analysis. The patient tolerated the procedure well and without evidence of significant immediate complication. The patient was given verbal as well as written post procedural instructions prior to release from the department. A two-view LEFT digital mammogram obtained post procedure demonstrates that the tissue marker clip is in expected position. The attending radiologist, Dr. Azar, was present throughout the entire procedure. Dr. Bradley (breast imaging fellow) and Dr. Lutz (diagnostic vice president of software engineering) also participated in this examination. IMPRESSION: Successful core needle biopsy of the LEFT breast. Pathology is pending. Electronically signed by: Perla Azar M.D. Aguila Loza [facility] MAMMO PROCEDURES Ed ited Result - Final * US Guided Breast Biopsy Left (11/12/2017 3:14 PM CDT) Anatomical Region Laterality Modality Breast Left Mammography 11/12/2017 3:47 PM CDT Addenda Addendum by Perla Azar MD on 11/14/2017 12:57 PM CDT ADDENDUM Addendum #1 issued at 11/14/2017 10:44 AM by MARKEL Newton, RN for Dr. Perla Azar: Histopathology from the core needle biopsy of the area of interest in the LEFT breast demonstrates invasive ductal carcinoma, linear dimension = 14 mm, histologic grade 3/3. ??This is a malignant finding and requires surgical intervention. The patient was informed of the biopsy results and recommendations by Tonny Broussard RN, BSN of the Breast [facility] on 11/13/2017. The patient has an appointment on 11/18/[address] Kianna Bunch who will direct surgical management. NOTE: ??Breast MRI is recommended. Edited by: Tonny Broussard Electronically signed by: Perla Azar M.D. Impressions 11/13/2017 2:37 PM CDT Successful core needle biopsy of the LEFT breast. ??Pathology is pending. Electronically signed by: Perla Azar M.D. Narrative 11/13/2017 2:37 PM CDT EXAMINATION: LEFT BREAST CORE BIOPSY UTILIZING SONOGRAPHIC GUIDANCE, PLACEMENT OF A BIOPSY TISSUE MARKER CLIP, AND LEFT FULL FIELD DIGITAL POST-PROCEDURE MAMMOGRAM HISTORY: ??Abnormal breast imaging. ??62-year-old woman with recent diagnosis of colon cancer. ??Recent CT of the chest showed a left breast mass for which she now undergoes biopsy. ??Ultrasound guided core needle biopsy is requested to evaluate for malignancy. COMPARISON: 11/05/2017. PROCEDURE AND FINDINGS: The risks and potential benefits of the procedures were discussed with the patient and written informed consent was obtained. After sterile preparation of the skin, 1% lidocaine was utilized for local anesthesia. ??A small skin incision was made with a #11 scalpel blade. ??A 12-gauge spring-loaded ??biopsy needle was then advanced through the skin incision to the edge of the lesion of interest at the medial left breast from a medial approach utilizing sonographic guidance. A total of 3 tissue cores were obtained through the lesion. An UltraClip ribbon-shaped tissue marker clip was then placed at the biopsy site. Hemostasis was achieved. A sterile bandage and an ice pack were applied. The patient tolerated the procedure well and there was no evidence of immediate complication. The patient was given verbal as well as written post procedural instructions prior to release from the department. ??The tissue cores were submitted to surgical pathology in formalin for histologic analysis. The patient tolerated the procedure well and without evidence of significant immediate complication. The patient was given verbal as well as written post procedural instructions prior to release from the department. ??A two-view LEFT digital mammogram obtained post procedure demonstrates that the tissue marker clip is in expected position. The attending radiologist, Dr. Azar, was present throughout the entire procedure. ??Dr. Bradley (breast imaging fellow) and Dr. Lutz (diagnostic vice president of software engineering) also participated in this examination. Procedure Note Perla Azar MD - 11/13/2017 EXAMINATION: LEFT BREAST CORE BIOPSY UTILIZING SONOGRAPHIC GUIDANCE, PLACEMENT OF A BIOPSY TISSUE MARKER CLIP, AND LEFT FULL FIELD DIGITAL POST-PROCEDURE MAMMOGRAM HISTORY: Abnormal breast imaging. 62-year-old woman with recent diagnosis of colon cancer. Recent CT of the chest showed a left breast mass for which she now undergoes biopsy. Ultrasound guided core needle biopsy is requested to evaluate for malignancy. COMPARISON: 11/05/2017. PROCEDURE AND FINDINGS: The risks and potential benefits of the procedures were discussed with the patient and written informed consent was obtained. After sterile preparation of the skin, 1% lidocaine was utilized for local anesthesia. A small skin incision was made with a #11 scalpel blade. A 12-gauge spring-loaded biopsy needle was then advanced through the skin incision to the edge of the lesion of interest at the medial left breast from a medial approach utilizing sonographic guidance. A total of 3 tissue cores were obtained through the lesion. An UltraClip ribbon-shaped tissue marker clip was then placed at the biopsy site. Hemostasis was achieved. A sterile bandage and an ice pack were applied. The patient tolerated the procedure well and there was no evidence of immediate complication. The patient was given verbal as well as written post procedural instructions prior to release from the department. The tissue cores were submitted to surgical pathology in formalin for histologic analysis. The patient tolerated the procedure well and without evidence of significant immediate complication. The patient was given verbal as well as written post procedural instructions prior to release from the department. A two-view LEFT digital mammogram obtained post procedure demonstrates that the tissue marker clip is in expected position. The attending radiologist, Dr. Azar, was present throughout the entire procedure. Dr. Bradley (breast imaging fellow) and Dr. Lutz (diagnostic vice president of software engineering) also participated in this examination. IMPRESSION: Successful core needle biopsy of the LEFT breast. Pathology is pending. Electronically signed by: Perla Azar M.D. Aguila Loza DO IMG MAMMO PROCEDURES Ed ited Result - Final * Surgical pathology (11/12/2017 3:06 PM CDT) Tissue (Breast biopsy, needle core) 11/12/2017 3:06 PM CDT Comment:Left Breast Mass 9:0 0 7 CM FN - Bi-Rad 5 Narrative PATHOLOGY [facility] - 11/13/2017 11:08 AM CDT EPIC results best viewed via link to PDF [facility] [place] [address] SURGICAL PATHOLOGY REPORT FINAL WITH ADDENDUM Patient Name: ?? ALEAH GERBER Gender: ??F : ??1955 (Age: 62) Address: ??[address] [place] [id number] Hospital #: ??[id number] Taken:11/12/2017 Received:11/12/2017 Reported: 11/13/2017 Patient Type: [facility] Ancillary ?? Service: Radiology Location: [facility] Physician(s): ??David Hunt D.O. Diagnosis: Breast, left, 9:00 7cm from nipple, stereotactic needle core biopsy: ? - Invasive ductal carcinoma ? - Linear dimension = 14 mm - Histologic grade = 3/3 (score: tub3 + nuc3 + mit3 = 9/9) by ESBR criteria - Biomarker studies pending and will be reported in an addendum 11/13/2017 10:36 By this signature, I attest that the above diagnosis is based upon my personal examination of the slides(and/or other material indicated in the diagnosis). Joan Kimball M.D., Ph.D. Report Electronically Reviewed and Signed Out By ??Joan Kimball M.D., Ph.D. 11/13/2017 11:08:41 Microscopic Description and Comment: Microscopic examination substantiates the above stated diagnosis. Vania Simmons MD History: The patient is a 62-year-old woman with left breast mass 9:007 cm from nipple. ??BIRADS score: 5. Operative procedure: Breast biopsy, needle core. Specimen(s) Received: A: Left breast mass at 9:00 Gross Description: The specimen is received in one formalin filled container labeled with the patient's name and left breast mass 9:007 cm from nipple. ??It contains three tovar soft tissue cores ranging from 1.9 cm to 2.2 cm in length and each measuring 0.2 cm in diameter. Labeled A1 to A2. ??Jar 0. ??Total formalin fixation time: 6.0 hours. [email or web address]/11/12/2017 16:38 Tiffany Trujillo, GIGI, CT (ASCP By this signature, I attest that the above diagnosis is based upon my personal examination of the slides(and/or other material). Addenda/Procedures Addendum Ordered: 11/14/2017 Status: Signed Out Addendum Complete: 11/14/2017 By: Joan Kimball M.D., Ph.D. Addendum Signed Out: 11/14/2017 ?? Addendum Diagnosis ? BREAST BIOMARKER RESULTS ESTROGEN RECEPTOR: ?Negative Levi Score: ?Proportion ??0/5 ? Intensity ??0/3 ? Total Score 0/8 PROGESTERONE RECEPTOR: ?Negative Levi Score: ?Proportion ??0/5 ? Intensity ??0/3 ? Total Score 0/8 HER-2: ?Negative (score 0 by IHC) ? TUMOR HISTOLOGIC TYPE: ?Invasive ductal carcinoma (no special type) ? HISTOLOGICAL GRADE BY ESBR CRITERIA: ?3 ? Technical Notes Estrogen receptor (ER), progesterone receptor (ME), and HER2 were evaluated by immunohistochemistry (IHC) by morphometric analysis in routine formalin-fixed paraffin-embedded tissue using a proprietary polymer- based detection system and instrumentation by [employer] per rehab nursing tech's recommendation. The IHC results for ER (antibody SP1) and ME (antibody 1E2) were quantified and interpreted (positive vs negative) using the Levi score (total score range = 0 to 8; positive >2) (see: Mod Pathol 11:155, 1998; J Clin Oncol 17:1474, 1998; Mod Pathol 17:1545, 2004). Pathway Her2 is a trademark of [employer] The IHC results for Pathway Her2 (antibody 4B5 rabbit monoclonal antibody) were scored in compliance with the ASCO/CAP guidelines (see: J Clin Oncol 31:3997, 2013). Levi score for estrogen and progesterone receptor evaluation: The Levi score combines the percentage of positive cells [proportion score: 0 (0%), 1 (<1%), 2 (1-10%), 3 (11- 33%), 4 (34-66%), 5 (>67%)] and the intensity of the reaction product (intensity score: 0-3). ??The two scores are added together for a final score. ??A combined score of >2 is considered positive. Her2 Interpretation guide Score 0: No membrane staining is observed, or immunoreactivity in <=10% of tumor cells; score 1+: incomplete membrane staning that is faint/barely perceptible and within >10% of tumor cells; score 2+: circumferential membrane staining that is incomplete and/or weak/moderate and within >10% of tumor cells, or complete and circumferential membrane staining that is intense and within <=10% of tumor cells; score 3+: intense and uniform circumferential membrane staining in >10% of tumor cells. ??A strong membranous (chicken-wire) pattern should be present. Tests with score of 0 or 1+ are reported as negative. ??A score of 2+ is reported as equivocal and a score of 3+ is positive. ??Reflex FISH testing is performed for all 2+ results. Control expression, sample adequacy and uniformity of staining are all assessed. ??The duration of formalin fixation is reported in the gross description on the primary report. ??This assay has not been validated on decalcified tissues. Results obtained on decalcified specimens should be interpreted with caution given the increased likelihood of false negativity. By this signature, I attest that the above diagnosis is based upon my personal examination of the slides(and/or other material indicated in the diagnosis). ?? Joan Kimball M.D., Ph.D. ??Report Electronically Reviewed and Signed Out By ??Joan Kimball M.D., Ph.D. ??11/14/2017 12:38:12 ? The performance characteristics of some immunohistochemical stains, fluorescence in-situ hybridization tests and immunophenotyping by flow cytometry cited in this report (if any) were determined by the Surgical Pathology Department at [facility] as part of an ongoing research quality assurance analyst program and in compliance [...] determined by the Surgical Pathology Department of [facility]. ??It has not been cleared or approved by the U. S. Food and Drug Administration. IMAGES AND SCANNED DOCUMENTS, IF INCLUDED, ONLY VIEWABLE IN PDF VERSION OF REPORT us Aguila Loza DO LAB PATHOLOGY ORDERABLE S Final Result PATHOLOGY [facility] [address] [place], [place] [phone] documented in this encounter Visit Diagnoses Diagnosis Abnormal mammogram Abnormal mammogram, unspecified documented in this encounter Administered Medications Inactive Administered Medications - up to 3 most recent administrations Medication Order MAR Action Action Date Dose Rate Site lidocaine (XYLOCAINE) 10 mg/mL (1 %) injection Code/trauma/sedation medication, Starting on Sat11/12/17 at 1505, Intra-Procedure (IR), Indications: Administration of Local AnesthesiaIndications:Administ ration of Local Anesthesia Given 11/12/2017 3:05 PM CDT 5 mL Left Breast lidocaine-EPINEPHrine (XYLOCAINE with EPI) 2 %-1:200,000 preservative free injection Code/trauma/sedation medication, Starting on Sat11/12/17 at 1506 Given 11/12/2017 3:06 PM CDT 5 mL Le ft Breast documented in this encounter Care Teams Chicken Buyer Relationship Specialty Start Date End Date Ravi Smith MD PCP - General 11/04/17 09/27/21 documented as of this encounter
--- OUTSIDE RECORDS SUMMARY | 2024-04-24 13:53 | XMS_ITS | Encounter Summary ---
Author Organization [facility] Address [address] [place] [address] Phone Care Team Providers Care Casework Supervisor Name Role Phone Ravi Smith MD Primary Care Provider [phone] Tony Bunch MD PhD Unavailable [phone] Santiago Gilbert MD Unavailable [phone] Reason for Visit * Oncology (Routine) - Closed Specialty Diagnoses / Procedures Referred By Contronny t Referred To Contact Medical Oncology / Oncology Diagnoses Malignant neoplasm of colon, unspecified Procedures RETURN AftTony MD PhD Phone: tel: fax: Abbi Ventura MD [address] [place] [address] Phone: tel: fax: Referral ID Status Reason Start Date Expiration Date V isits Requested Visits Authorized [id number] Closed Specialty Services Required 11/26/2017 05/05/2018 99 99 Encounter Details Date Type Department Care Team (Late st Contact Info) Description 11/26/2017 4:00 PM CDT Office Visit [facility] Oncology [address] [facility] [address] [place] [id number] Abbi Ventura MD [address] [place] [address] [address] [place] [address] Malignant neoplasm of left breast in female, estrogen receptor negative, unspecified site of breast (CMS/HCC) (Primary Dx) Social History Tobacco Use Types Packs/Day Years Used Date Smoking Tobacco: Never Smokeless Tobacco: Never Alcohol Use Standard Drinks/Week Comments Yes 0 (1 standard drink = 0.6 oz pur e alcohol) socially Comments No Sex and Gender Information Value Date Recorded Sex Assigned at Not on file 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 Gender Identity Not on file Sexual Orientation Not on file documented as of this encounter Last Filed Vital Signs Vital Sign Reading Time Taken Comments Blood Pressure 135/64 11/26/2017 3:47 PM CDT Pulse 82 11/26/2017 3:47 PM CDT Temperature 36.7 ??C (98 ??F) 11/26/2017 3:47 PM CDT Respiratory Rate 18 11/26/2017 3:47 PM CDT Oxygen Saturation 95% 11/26/2017 3:47 PM CDT Inhaled Oxygen Concentration - - Weight 115.3 kg (254 lb 2 oz) 11/26/2017 3:47 PM CDT Height 174 cm (5' 8.5 ) 11/26/2017 3:47 PM CDT Body Mass Index 38.07 11/26/2017 3:47 PM CDT documented in this encounter Progress Notes * Lorenza Lr MD - 11/26/2017 4:00 PM CDT Oncology Medicine History and Physical Referring Provider: Tony Bunch MD PhD Subjective Patient is a 62 y.o. female with chief complaint of synchronous colon and breast cancer HPI: 62 y/o woman with a history of anxiety depression who presents for medical oncology consultation for new diagnosis of synchronous colon and breast cancer. She reports that in March 2017 she had changes in her caliber of her stool involving thinner stool, with increased stool frequency, no blood in the stool. She had colonoscopy done on 10/22/17 with finding of a 4 x 5 cm ulcerated, non- obstructing mass in the proximal descending colon, with stigmata of recent bleeding, multiple semi-pedunculated polyps ~ 7-10 mm in the cecum, multiple sessile polyps ~ 4-6 mm in the mid-ascending colon, and sessile polyps seen in the mid transverse and rectum, reportedly polpys were completely excised, and biopsy of mass done. Pathology from mass biopsy was consistent with adenocarcinoma, with mucinous component, with pathology of polyps ranging from tubularadenoma to tubo-villous adenoma. Staging abdominal/pelvic CT scan in October 2017, an abnormal appearing 1.8 cm mass in the left breastwas found, with irregular wall thickening involving approximately 6 x 5 cm segment of distal transverse colon at the splenic flexure, no abdominal pelvic lymph nodes identified. She underwent a diagnostic mammogram on 11/05/17 [...] ~ 1.4 cm, Grade 3, ER 0, MI 0, HER-2 IHC 0. She has been evaluated by breast surgeon, Dr Bunch, and is scheduled to see colorectal surgeon , Dr Sanderson on 11/28/17. Genetic testing was also done. Currently, she denies any fevers, chills, reports night sweats occurring several times a week. She denies any weight loss, early satiety but continues to have increasing stool frequency with meals. PASTMEDICAL/SURGICAL HISTORY: Asthma Depression Tubal ligation in 1991 Prior to Admission medications Medication Sig Start Date End Date Taking? Authorizing Provider ALPRAZolam (XANAX) 0.25 mg tablet 11/07/17 Historical Provider, cholecalciferol (VITAMIN D3) 2,000 unit capsule 10/04/17 Historical Provider, sertraline (ZOLOFT) 50 mg tablet 11/07/17 Historical Provider, Allergies Allergen Reactions ??? 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 FAMILY HISTORY: Father with a history of prostate cancer diagnosed at age 60 Sister with a history of pancreatic cancer at age 42 GYNECOLOGICAL HISTORY Menarche was at age 15, menopause with at age 57, she is 3 para 2, age at 1st 24,prior oral contraceptive use for over 20 years, denies any hormone replacement therapy REVIEW OF SYSTEMS: Review of systems positive for weight gain, hot flashes, nipple discharge, diarrhea, bloating, and changes to stool call and bowel habits, anxiety depression. Detailed review of systems is attached to the chart in the initial office visit form. All other review of systems negative. Objective Vitals: Vitals: 11/26/17 1547 BP: 135/64 Pulse: 82 Resp: 18 Temp: 36.7 ??C (98 ??F) SpO2: 95% ECO Physical exam: General Appearance: Alert, cooperative, [...] no nipple or areolar changes. Left breast: Tender on palpation, No dominant mass; no nipple or areolar changes. Chest wall: No tenderness or deformity Cardiovascular: Regular rate and rhythm, S1 and S2 normal, no murmur, rub or gallop Abdomen: Soft, non-tender, bowel sounds active all four quadrants, no masses, no organomegaly, non-distended Extremities: Extremities normal, atraumatic, no cyanosis or edema, no clubbing Skin: Skin color, texture, turgor normal, no rashes, lesions or bruising Lymph nodes: Cervical, supraclavicular, axillary, inguinal, femoral nodes normal Neurologic: Alert & oriented x 4, CNII-XII intact. Power 5/5 in all extremities, Able to buttonshirt and do tandem walking. Detailed neuro exam not done Psychosocial: Normal affect and mood Lab/Radiology/Diagnostic Review: Chemistry Component Value Date/Time CREATININE 1.0 11/25/2017 0731 No results found for: CALCIUM, ALKPHOS, AST, ALT, BILITOT MRI Breast Bilateral W WO Contrast Narrative: ALEAH GERBER, : 1955 (62 years), , Ordering Provider: TONY Machado AFMarv EXAMINATION: 1. MRI EXAMINATION OF THE BREASTS [...] the visualized portions of either axilla. Impression: 1. Unifocal malignancy of the left breast, consistent with biopsy-proven invasive ductal carcinoma. OVERALL FINAL ASSESSMENT: BIRADS Category 6. Known Biopsy-Proven Malignancy Electronically signed by: Ronny Samuel M.D. Recent labs, radiology and pathology reviewed in [facility] ASSESSMENT: Ms. Gerber is a 62-year-old woman with a history of anxiety and depression, here for medical oncology consultation for a new synchronous diagnosis of breast and colon cancer. From review of workup, she has evidence of a nonobstructing mass in the descending colon, with biopsy consistent with colon adenocarcinoma. Staging scan reveals evidence of a breast mass, with biopsyconsistent with invasive ductal carcinoma, ER negative, MI negative, HER-2 negative. Although breast ultrasound was concerning for the presence of a satellite nodule, her most recent MRI only revealsa 2.2 cm spiculated left breast mass. Furthermore, her staging scans do not show any evidence of distant metastases. We have discussed that the radiographic findings are consistent with early stages of breast and colon cancer, as such, the goal of treatment is with curative intent. We have explained that the treatment of triple negative breast cancer would involve a multimodalityapproach consisting of surgery, radiation and chemotherapy. We have also explained that the treatment of colorectal cancer involves combination of surgery and possible chemotherapy based on the pathol ogical stage. Given that there is no true overlap chemotherapy for both diagnosis, we would favor proceeding for surgical management of both breast and colon cancer and based on the pathologic staging of both malignancies, we would discuss chemotherapy approaches. She has been evaluated by a breast surgeon, Dr. Bunch, and she is scheduled to see Colorectal surgery, Dr Sanderson. We have discussed with both the surgeons and they plan on operating on the breast cancer first followed by colon cancer within a short period of time. She is currently scheduled to RTC in 4 weeks to discuss adjvuant chemotherapy. At this time, all of her questions and concerns have been addressed. She has our number to call in the interim if any questions or concerns arises Lorenza Carreon MD Cosigned by Abbi Ventura MD at 11/28/2017 6:40 AM CDT Associated attestation - Abbi Ventura MD - 11/28/2017 6:40 AM CDT I have seen and examined the patient on 11/26/17. I agree with the findings and plan of care as documented in the fellow's note. Abbi Ventura MD documented in this encounter Plan of Treatment Not on file documented as of this encounter Visit Diagnoses Diagnosis Malignant neoplasm of left breast in female, estrogen receptor negative, unspecified site of breast (HCC)- Primary documented in this encounter Orders Appointment Requests Count Last Ordered Date Fi rst Ordered Date [facility] CLINIC APPOINTMENT REQUEST 1 018 ON[facility]N LAB APPOINTMENT 1 01/28/2018 documented in this encounter Care Teams Casework Supervisor Relationship Specialty Start Date End Date Ravi Smith MD PCP - General 11/04/17 09/27/21 Aft, Tony Machado MD PhD [address] [place] [address] Surgeon Surgical Oncology 11/22/17 Santiago Gilbert MD [address] [place] [address] Callisthenics Instructor Gastroenterology 11/22/17 documented as of this encounter
--- OUTSIDE RECORDS SUMMARY | 2024-04-24 13:53 | XMS_ITS | Encounter Summary ---
Author Organization [facility] Healthcare Address [address] [place] [address] Care Team Providers Care Light Rail Transit Operator Name Role Phone Ravi Smith MD Primary Care Provider [phone] Kianna Bunch MD PhD Unavailable [phone] Santiago Gilbert MD Unavailable [phone] Reason for Visit * Diagnostic Imaging (Routine) - Closed Specialty Diagnoses / Procedures Referred By Vijaya simpson Referred To Contact Radiology Diagnoses Infiltrating ductal carcinoma of female breast, unspecified laterality (HCC) Procedures MRI Breast Bilateral W WO Contrast Aileent, Kianna Machado MD PhD Phone: tel: fax: [address] [address] Referral ID Status Reason Start Date Expiration Date Visits Re quested Visits Authorized [id number] Closed 11/18/2017 05/30/2019 1 1 Encounter Details Date Type Department Care Team (Latest Contact Info) Description 11/26/2017 11:18 AM CDT - 11/26/2017 11:59 PM CDT Hospital Encounter [facility] [address] [place] [phone] Kianna Bunch MD PhD [address] [place] [phone] Discharge Disposition: Discharge to home or self care Social History Tobacco Use Types Packs/Day Years Used Date Smoking Tobacco: Never Smokeless Tobacco: Never Alcohol Use Standard Drinks/Week Comments Yes 0 (1 standard drink = 0.6 oz pur e alcohol) socially Comments No Sex and Gender Information Value Date Recorded Sex Assigned at Not on file 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 Gender Identity Not on file Sexual Orientation Not on file documented as of this encounter Medications at Time of Discharge ALPRAZolam (XANAX) 0.25 mg tablet Take 1 tablet (0.25 mg total) by mouth 3 (three) times a day as needed for anxiety 11/07/2017 BREO ELLIPTA 100-25 mcg/dose diskus inhalerIndication s:Bronchospasm Prevention with COPD Inhale every morning 1 11/22/2017 10/20/2018 cholecalciferol (VITAMIN D3) 2,000 unit capsuleIndication s:Osteoporosis Take 2,000 Units by mouth nightly 10/04/2017 03/23/2020 diazePAM (VALIUM) 5 mg tablet 0 11/25/2017 12/10/2017 sertraline (ZOLOFT) 50 mg tabletIndications :Anxiety with [...] CONTRAST Schedule Routine, Read Routine (OP Routine) 11/26/2017 1:56 PM CDT Infiltrating ductal carcinoma of female breast, unspecified laterality (CMS/HCC) documented in this encounter Visit Diagnoses Not on filedocumented in this encounter Administered Medications Inactive Administered Medications - up to 3 most recent administrations Medication Order MAR Action Action Date Dose Rate Site gadoterate meglumine (DOTAREM) 0.5 mmol/mL injection 15 mL 15 mL, intravenous, Once in imaging, contrast, Starting on Sat11/26/17 at 1326, For 1 dose Given 11/26/2017 1:27 PM CDT 15 mL documented in this encounter Orders Medications Ordered That Jefferson ht Not Have Been Administered Count Last Ordered Date First Ordered Date gadoterate meglumine (DOTARE M) 0.5 mmol/mL injection 10 mL 1 11/26/2017 gadoterate meglumine (DOTARE M) 0.5 mmol/mL injection 15 mL 1 11/26/2017 documented in this encounter Care Teams Light Rail Transit Operator Relationship Specialty Start Date End Date Ravi Smith MD PCP - General 11/04/17 09/27/21 Aft, Kianna Machado MD PhD [address] [place] [address] Surgeon Surgical Oncology 11/22/17 Santiago Gilbert MD [address] [place] [address] Night Warehouse Selector Gastroenterology 11/22/17 documented as of this encounter
--- OUTSIDE RECORDS SUMMARY | 2024-04-24 13:53 | XMS_ITS | Encounter Summary ---
Author Organization [facility] Address [address] [place] [address] Phone Care Team Providers Care Filter Machine Operator Name Role Phone Ravi Smith MD Primary Care Provider [phone] Aft, Kianna Machado MD PhD Unavailable [phone] Santiago Gilbert MD Unavailable [phone] Reason for Visit * Reason Onset Date Comments Patient asking for a return call from Sue CAIN 01/03/2018 Encounter Details Date Type Department Care Team (Late st Contact Info) Description 01/03/2018 Telephone [facility] [place] [address] Fatemeh Olivo BS Patient asking for a return call from Sue CAIN Social History Tobacco Use Types Packs/Day Years Used Date Smoking Tobacco: Former Cigarettes 2015 Smokeless Tobacco: Never Alcohol Use Standard Drinks/Week Comments No 0 (1 standard drink = 0.6 oz pur e alcohol) socially Comments No Sex and Gender Information Value Date Recorded Sex Assigned at Not on file 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 Will forward her request. documented in this encounter Plan of Treatment Not on file documented as of this encounter Visit Diagnoses Not on filedocumented in this encounter Care Teams Filter Machine Operator Relationship Specialty Start Date End Date Ravi Smith MD PCP - General 11/04/17 09/27/21 Aft, Kianna Machado MD PhD [address] [place] [address] Surgeon Surgical Oncology 11/22/17 Santiago Gilbert MD [address] [place] [address] Steel Burner Gastroenterology 11/22/17 documented as of this encounter
--- OUTSIDE RECORDS SUMMARY | 2024-04-24 13:53 | XMS_ITS | Encounter Summary ---
Author Organization [facility] Address [address] [place] [address] Phone Care Team Providers Care Cooper Apprentice Name Role Phone Ravi Smith MD Primary Care Provider [phone] Reason for Visit * Reason Comments Initial Consult New cancer diagnosis LEFT Breast Encounter Details Date Type Department Care Team (Late st Contact Info) Description 11/18/2017 2:40 PM CDT Office Visit [facility] Surgery [address] [facility] 5[address] [place] [address] [place] [phone] Aft, Kianna Machado MD PhD [address] [place] [address] Malignant neoplasm of upper-inner quadrant of left [...] on file 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 Gender Identity Not on file Sexual Orientation Not on file documented as of this encounter Last Filed Vital Signs Vital Sign Reading Time Taken Comments Blood Pressure - - Pulse - - Temperature - - Respiratory Rate - - Oxygen Saturation - - Inhaled Oxygen Concentration - - Weight 113.4 kg (250 lb) 11/18/2017 3:05 PM CDT Height 176.5 cm (5' 9.5 ) 11/18/2017 3:05 PM CDT Body Mass Index 36.39 11/18/2017 3:05 PM CDT documented in this encounter Progress Notes * Dat Kumar MD - 11/18/2017 2:40 PM CDT 11/18/17 0718PATIENT NAME: Aleah Gerber DATE OF : 1955 DATE OF OFFICE VISIT: 11/18/2017 REFERRING MD: Ravi Smith MD A consultation was requested by Ravi Smith MD for left breast cancer. CHIEF COMPLAINT: Aleah Gebrer is a 62 y.o. female with chief complaint of left breast cancer. HISTORY OF PRESENT ILLNESS: Ms. Gerber is a 62 y.o. woman referred by Ravi Smith MD presents for evaluation of her new diagnosis of left breast cancer. The patient has a history of newly [...] to be a 14mm triple negative IDC. Patient states that since she has fibroids [...] systemic complaints and otherwise feels well today. She had a biopsy-confirmed benign breast mass in the right breast in the . PAST MEDICAL HISTORY: She has a past medical history of COPD (chronic obstructive pulmonary disease) (CMS/HCC) and Depression. PAST SURGICAL HISTORY: She has a past surgical history that includes Breast biopsy (Left, 11/12/2017). MEDICATIONS: She has a current medication list which includes the following prescription(s): alprazolam, cholecalciferol, and sertraline. ALLERGIES: She is allergic to tetanus vaccines and toxoid. FAMILY HISTORY: Her family history includes Liver cancer (age of onset: 80) in her maternal grandmother; Pancreaticcancer (age of onset: 40) in her sister; Prostate cancer (age of onset: 60) in her father. SOCIAL HISTORY: She reports that she has never smoked. She has never used smokeless tobacco. She reports that she drinks alcohol. Her drug history is not on file. ROS: Pertinent items are noted in HPI. A comprehensive review of systems was negative. I have personally reviewed the patient health history form which is scanned into her chart. PHYSICAL EXAMINATION: GENERAL: She is a well-developed, [...] breast, nor skin changes nor nipple discharge. IMAGING: I personally reviewed all of the imaging today. Which demonstrated the cancer in the left breast, possible satellite lesion. Diagnostic mammogram (11/05): Multiple bilateral oval, circumscribed and obscured equal density masses are most consistent with a benign process such as multiple cysts or fibroadenomas. There are benign regional punctate, indistinct, and milk of calcium calcifications in both upper outer quadrants. ?? In addition, however, there is a 1.8 cm round mass at the 9:00 position of the left breast, that has indistinct and spiculated margins. There is a least one probable 8 mm satellite mass that is 2 cm anterior to the index mass. ?? Ultrasound (11/05): At the 9:00 position, 8 cm from the nipple, there is a 2.3 cm x 1.9 cm x 1.5 cm irregular, hypoechoic mass with circumscribed and spiculated margins. Extending up to 2 cm towards the nipple, there is some ductal tissue and at least one 4 mm satellite lesion. ?? There are no abnormal lymph nodes. ?? IMPRESSION: Left breast mass at the 9:00 position with a subcentimeter satellite lesion, highly suggestive of malignancy. Recommend ultrasound-guided biopsy for further evaluation. PATHOLOGY: I reviewed the pathology. ESTROGEN RECEPTOR: ?Negative PROGESTERONE RECEPTOR: ?Negative HER-2: ?Negative (score 0 by IHC)? TUMOR HISTOLOGIC TYPE: ?Invasive ductal carcinoma (no special type) HISTOLOGICAL GRADE BY ESBR CRITERIA: ?3 Blood was drawn for 21 gene genetic testing given her history of TNBC and colon cancer. RECOMMENDATION: Ms. Gerber is a 62 y.o. woman who presents today for a consultation regarding her new diagnosis of left breast cancer. I reviewed the clinical, imaging, and pathology findings with her today. We discussed the treatment of breast cancer, which includes a combination of surgical therapy, systemic therapy, and radiation. Prior to further surgical planning, we have recommended a breast MRI for extent of disease.. Since she is also a TNBC patient at the age of 62, we will also proceed with genetic testing. We will arrange for her to see a colorectal surgeon at and coordinate treatment. She understands and wishes to proceed. We will schedule her for these additional clinical investigations. She knows to call with questions. - Genetic testing - Breast MRI Dat Kumar MD I have seen and examined Aleah Gebrer with the resident physician. We worked together to complete the office note, and I personally reviewed and edited the note. I agree with the evaluation and management plan outlined above. Kianna Bunch Md, PhD Cosigned by Kianna Bunch MD PhD at 11/18/2017 9:39 PM CDT documented in this encounter Plan of Treatment Not on file documented as of this encounter Visit Diagnoses Diagnosis Malignant neoplasm of upper-inner quadrant of left breast in female, estrogen receptor negative (HCC)- Primary documented in this encounter Historical Medications * This list may reflect changes made after this encounter. ALPRAZolam (XANAX) 0.25 mg tablet Take 1 tablet (0.25 mg total) by mouth 3 (three) times a day as needed for anxiety 11/07/2017 sertraline (ZOLOFT) 50 mg tabletIndications :Anxiety with Depression nightly. 11/07/2017 02/20/2018 cholecalciferol (VITAMIN D3) 2,000 unit capsuleIndication s:Osteoporosis Take 2,000 Units by mouth nightly 10/04/2017 03/23/2020 added in this encounter Care Teams Cooper Apprentice Relationship Specialty Start Date End Date Ravi Smith MD PCP - General 11/04/17 09/27/21 documented as of this encounter
--- OUTSIDE RECORDS SUMMARY | 2024-04-24 13:54 | XMS_ITS | Encounter Summary ---
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 us Not In File Miscellaneous IMG US PROCEDURES Bethanie l Result [facility] documented in this encounter Visit Diagnoses Not on filedocumented in this encounter Care Teams Tank Cooper Relationship Specialty Start Date End Date Ravi Smith MD PCP - General 11/04/17 09/27/21 documented as of this encounter
--- OUTSIDE RECORDS SUMMARY | 2024-04-24 13:54 | XMS_ITS | Encounter Summary ---
Author Organization [facility] Address [address] [place] [address] Care Team Providers Care Organizational Development Director Name Role Phone Ravi Smith MD Primary Care Provider [phone] Reason for Referral * Diagnostic Imaging (Routine) - Closed Specialty Diagnoses / Procedures Referred By Vijaya simpson Referred To Contact Diagnoses Lump of breast, right Procedures US Breast Left Limited US Breast Right Limited Aguila Loza DO Phone: tel: fax: [address] [phone] Referral ID Status Reason Start Date Expiration Date Visits Re quested Visits Authorized [id number] Closed 11/04/2017 05/16/2019 1 1 * Diagnostic Imaging (Routine) - Closed Specialty Diagnoses / Procedures Referred By Vijaya simpson Referred To Contact Diagnoses Lump of breast, right Procedures Diagnostic Mammogram Bilateral W Mathew Diagnostic Mammogram 2D Bilateral Aguila Loza DO Phone: tel: fax: [address] [phone] Referral ID Status Reason Start Date Expiration Date Visits Re quested Visits Authorized [id number] Closed 11/04/2017 05/16/2019 1 1 Reason for Visit * Diagnostic Imaging (Routine) - Closed Specialty Diagnoses / Procedures Referred By Vijaya t Referred To Contact Diagnoses Lump of breast, right Procedures Diagnostic Mammogram Bilateral W Mathew Diagnostic Mammogram 2D Bilateral Aguila Loza DO Phone: tel: fax: [address] [phone] Referral ID Status Reason Start Date Expiration Date Visits Re quested Visits Authorized [id number] Closed 11/04/2017 05/16/2019 1 1 Encounter Details Date Type Department Care Team (Latest Contact Info) Description 11/05/2017 12:42 PM CDT - 11/05/2017 11:59 PM CDT Hospital Encounter [facility] Breast Imaging [facility] [address] [place] [address] Aguila Loza DO [address] [facility] [address] [place], [place] [id number] Lump of breast, right Discharge Disposition: Discharge to home or self care Social History Tobacco Use Types Packs/Day Years Used Date Smoking Tobacco: Never Assessed Comments Unknown Sex and Gender Information Value Date Recorded Sex Assigned at Not on file Legal 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 Gender Identity Not on file Sexual Orientation Not on file documented as of this encounter Medications at Time of Discharge cholecalciferol (VITAMIN D3) 2,000 unit capsuleIndication s:Osteoporosis Take 2,000 Units by mouth nightly 10/04/2017 03/23/2020 documented as of this encounter Discharge Disposition Disposition Code Departure Means Destination Discharge to home or self care documented in this encounter Plan of Treatment Not on file documented as of this encounter Procedures Procedure Name Priority Date/Time Associated Diagnosis Comments US BREAST LEFT LIMITED Schedule Routine, Read Routine (OP Routine) 11/05/2017 4:09 PM CDT Lump of breast, right DIAGNOSTIC MAMMOGRAM BILATERAL W MATHEW Schedule Routine, Read Routine (OP Routine) 11/05/2017 2:59 PM CDT Lump of breast, right documented in this encounter Results * US Breast Left Limited (11/05/2017 4:09 PM CDT) Anatomical Region Laterality Modality Breast Left Ultrasound 11/05/2017 4:36 PM CDT Impressions 11/07/2017 12:52 PM CDT Left breast mass at the 9:00 position with a subcentimeter satellite lesion, highly suggestive of malignancy. Recommend ultrasound-guided biopsy for further evaluation. Dr. Perla Azar discussed the above findings and recommendations with the patient. ??She has been scheduled to return to the [facility] for biopsy. ??This facility will contact the referring clinician's office for an order. OVERALL FINAL ASSESSMENT: BI-RADS Category 5: Highly Suggestive of Malignancy. Electronically signed by: Perla Azar M.D. Narrative 11/07/2017 12:52 PM CDT EXAMINATION: BILATERAL DIGITAL DIAGNOSTIC MAMMOGRAM INCLUDING CAD AND BILATERAL DIGITAL BREAST TOMOSYNTHESIS; LEFT BREAST SONOGRAM HISTORY: 62-year-old female LEFT breast mass identified on recent CT scan performed at [facility]. COMPARISON: No comparison mammogram available. TECHNIQUE: ?? Full field digital mammographic views of BOTH breasts were performed, including computer aided detection (CAD) and BILATERAL digital breast tomosynthesis (DBT). ??Directed ultrasound evaluation of the LEFT breast was performed by a trained powder carrier and Dr. Perla Azar. BREAST PARENCHYMAL COMPOSITION: The breasts are heterogenously dense, which may obscure small masses. MAMMOGRAM FINDINGS: Multiple bilateral oval, circumscribed and obscured equal density masses are most consistent with a benign process such as multiple cysts or fibroadenomas. There are benign regional punctate, indistinct, and milk of calcium calcifications in both upper outer quadrants. In addition, however, there is a 1.8 cm round mass at the 9:00 position of the left breast, that has indistinct and spiculated margins. There is a least one probable 8 mm satellite mass that is 2 cm anterior to the index mass. SONOGRAM FINDINGS: At the 9:00 position, 8 cm from the nipple, there is a 2.3 cm x 1.9 cm x 1.5 cm irregular, hypoechoic mass with circumscribed and spiculated margins. Extending up to 2 cm towards the nipple, there is some ductal tissue and at least one 4 mm satellite lesion. There are no abnormal lymph nodes. Incidentally noted was a subcentimeter simple cyst at the 2:00 position, 5 cm from the nipple. Procedure Note Perla Azar MD - 11/07/2017 EXAMINATION: BILATERAL DIGITAL DIAGNOSTIC MAMMOGRAM INCLUDING CAD AND BILATERAL DIGITAL BREAST TOMOSYNTHESIS; LEFT BREAST SONOGRAM HISTORY: 62-year-old female LEFT breast mass identified on recent CT scan performed at [facility]. COMPARISON: No comparison mammogram available. TECHNIQUE: Full field digital mammographic views of BOTH breasts were performed, including computer aided detection (CAD) and BILATERAL digital breast tomosynthesis (DBT). Directed ultrasound evaluation of the LEFT breast was performed by a trained powder carrier and Dr. Perla Azar. BREAST PARENCHYMAL COMPOSITION: The breasts are heterogenously dense, which may obscure small masses. MAMMOGRAM FINDINGS: Multiple bilateral oval, circumscribed and obscured equal density masses are most consistent with a benign process such as multiple cysts or fibroadenomas. There are benign regional punctate, indistinct, and milk of calcium calcifications in both upper outer quadrants. In addition, however, there is a 1.8 cm round mass at the 9:00 position of the left breast, that has indistinct and spiculated margins. There is a least one probable 8 mm satellite mass that is 2 cm anterior to the index mass. SONOGRAM FINDINGS: At the 9:00 position, 8 cm from the nipple, there is a 2.3 cm x 1.9 cm x 1.5 cm irregular, hypoechoic mass with circumscribed and spiculated margins. Extending up to 2 cm towards the nipple, there is some ductal tissue and at least one 4 mm satellite lesion. There are no abnormal lymph nodes. Incidentally noted was a subcentimeter simple cyst at the 2:00 position, 5 cm from the nipple. IMPRESSION: Left breast mass at the 9:00 position with a subcentimeter satellite lesion, highly suggestive of malignancy. Recommend ultrasound-guided biopsy for further evaluation. Dr. Perla Azar discussed the above findings and recommendations with the patient. She has been scheduled to return to the [facility] for biopsy. This facility will contact the referring clinician's office for an order. OVERALL FINAL ASSESSMENT: BI-RADS Category 5: Highly Suggestive of Malignancy. Electronically signed by: Perla Azar M.D. us Aguila Loza DO IMG MAMMO PROCEDURES Fi nal Result * Diagnostic Mammogram Bilateral W Mathew (11/05/2017 2:59 PM CDT) Anatomical Region Laterality Modality Breast Bilateral Mammography 11/05/2017 4:28 PM CDT Impressions 11/07/2017 12:52 PM CDT Left breast mass at the 9:00 position with a subcentimeter satellite lesion, highly suggestive of malignancy. Recommend ultrasound-guided biopsy for further evaluation. Dr. Perla Azar discussed the above findings and recommendations with the patient. ??She has been scheduled to return to the [facility] for biopsy. ??This facility will contact the referring clinician's office for an order. OVERALL FINAL ASSESSMENT: BI-RADS Category 5: Highly Suggestive of Malignancy. Electronically signed by: Perla Azar M.D. Narrative 11/07/2017 12:52 PM CDT EXAMINATION: BILATERAL DIGITAL DIAGNOSTIC MAMMOGRAM INCLUDING CAD AND BILATERAL DIGITAL BREAST TOMOSYNTHESIS; LEFT BREAST SONOGRAM HISTORY: 62-year-old female LEFT breast mass identified on recent CT scan performed at [facility]. COMPARISON: No comparison mammogram available. TECHNIQUE: ?? Full field digital mammographic views of BOTH breasts were performed, including computer aided detection (CAD) and BILATERAL digital breast tomosynthesis (DBT). ??Directed ultrasound evaluation of the LEFT breast was performed by a trained powder carrier and Dr. Perla Azar. BREAST PARENCHYMAL COMPOSITION: The breasts are heterogenously dense, which may obscure small masses. MAMMOGRAM FINDINGS: Multiple bilateral oval, circumscribed and obscured equal density masses are most consistent with a benign process such as multiple cysts or fibroadenomas. There are benign regional punctate, indistinct, and milk of calcium calcifications in both upper outer quadrants. In addition, however, there is a 1.8 cm round mass at the 9:00 position of the left breast, that has indistinct and spiculated margins. There is a least one probable 8 mm satellite mass that is 2 cm anterior to the index mass. SONOGRAM FINDINGS: At the 9:00 position, 8 cm from the nipple, there is a 2.3 cm x 1.9 cm x 1.5 cm irregular, hypoechoic mass with circumscribed and spiculated margins. Extending up to 2 cm towards the nipple, there is some ductal tissue and at least one 4 mm satellite lesion. There are no abnormal lymph nodes. Incidentally noted was a subcentimeter simple cyst at the 2:00 position, 5 cm from the nipple. Procedure Note Perla Azar MD - 11/07/2017 EXAMINATION: BILATERAL DIGITAL DIAGNOSTIC MAMMOGRAM INCLUDING CAD AND BILATERAL DIGITAL BREAST TOMOSYNTHESIS; LEFT BREAST SONOGRAM HISTORY: 62-year-old female LEFT breast mass identified on recent CT scan performed at [facility]. COMPARISON: No comparison mammogram available. TECHNIQUE: Full field digital mammographic views of BOTH breasts were performed, including computer aided detection (CAD) and BILATERAL digital breast tomosynthesis (DBT). Directed ultrasound evaluation of the LEFT breast was performed by a trained powder carrier and Dr. Perla Azar. BREAST PARENCHYMAL COMPOSITION: The breasts are heterogenously dense, which may obscure small masses. MAMMOGRAM FINDINGS: Multiple bilateral oval, circumscribed and obscured equal density masses are most consistent with a benign process such as multiple cysts or fibroadenomas. There are benign regional punctate, indistinct, and milk of calcium calcifications in both upper outer quadrants. In addition, however, there is a 1.8 cm round mass at the 9:00 position of the left breast, that has indistinct and spiculated margins. There is a least one probable 8 mm satellite mass that is 2 cm anterior to the index mass. SONOGRAM FINDINGS: At the 9:00 position, 8 cm from the nipple, there is a 2.3 cm x 1.9 cm x 1.5 cm irregular, hypoechoic mass with circumscribed and spiculated margins. Extending up to 2 cm towards the nipple, there is some ductal tissue and at least one 4 mm satellite lesion. There are no abnormal lymph nodes. Incidentally noted was a subcentimeter simple cyst at the 2:00 position, 5 cm from the nipple. IMPRESSION: Left breast mass at the 9:00 position with a subcentimeter satellite lesion, highly suggestive of malignancy. Recommend ultrasound-guided biopsy for further evaluation. Dr. Perla Azar discussed the above findings and recommendations with the patient. She has been scheduled to return to the [facility] for biopsy. This facility will contact the referring clinician's office for an order. OVERALL FINAL ASSESSMENT: BI-RADS Category 5: Highly Suggestive of Malignancy. Electronically signed by: Perla Azar M.D. Aguila Loza DO IMG MAMMO PROCEDURES Fi nal Result documented in this encounter Visit Diagnoses Diagnosis Lump of breast, right documented in this encounter Care Teams Organizational Development Director Relationship Specialty Start Date End Date Ravi Smith MD PCP - General 11/04/17 09/27/21 documented as of this encounter
--- OUTSIDE RECORDS SUMMARY | 2024-04-24 14:09 | XMS_ITS | Encounter Summary ---
Author Organization [facility] Address [address] [place] [address] Care Team Providers Care Oil Driller Name Role Phone Ravi Smith MD Primary Care Provider [phone] Encounter Details Date Type Department Care Team (Late st Contact Info) Description 12/11/2006 Outpatient Historical [facility] AM[facility] De Souza, Mirella Solorzano MD [address] [place] [address] [address] [id number] Diffuse Cystic Mastopathy (Primary Dx) Social History Tobacco Use Types Packs/Day Years Used Date Smoking Tobacco: Never Assessed Sex and Gender Information Value Date Recorded Sex Assigned at Not on file Gender Identity Not on file Sexual Orientation Not on file documented as of this encounter Plan of Treatment Not on file documented as of this encounter Visit Diagnoses Diagnosis Diffuse cystic mastopathy- Primary documented in this encounter Care Teams Oil Driller Relationship Specialty Start Date End Date Ravi Smith MD PCP - General Family Practice 02/20/18 documented as of this encounter
--- OUTSIDE RECORDS SUMMARY | 2024-04-24 14:09 | XMS_ITS | Clinical Summary ---
Author Organization [facility] Address [address] [place] [address] Phone Care Team Providers Care Street Contractor Name Role Phone Ravi Smith MD Primary Care Provider [phone]- [phone] Allergies Active Allergy Reactions Criticality Noted Date Comments Tetanus Toxoid Other (See Comments) 02/20/2018 Pain, swelling, fever at site Medications Medication Sig Dispensed Refills Start Date End Date Status sertraline (ZOLOFT) 50 mg tablet Take 50 mg by mouth daily at bedtime . Active ALPRAZolam (XANAX) 0.25 mg tablet Take 0.25 mg by mouth 3 times daily as needed for Anxiety . Active fluticasone-vilan terol (BREO ELLIPTA) 100-25 mcg/dose Disk with Device Take 1 Puff by inhalation daily. Active Cholecalciferol, Vitamin D3, 2,000 unit Capsule Take 1 Tablet by mouth daily . Active bisacodyl (DULCOLAX) 5 mg Delayed Release tablet Take 5 mg by mouth 1 time daily as needed. 01/06/2018 Active dexamethasone (DECADRON) 4 mg tablet Take 4 mg by mouth see administration instructions 1 tab on days 2-4 of chemo q 2 weeks.. 01/31/2018 Active famotidine (PEPCID) 20 mg tablet Take 20 mg by mouth 2 times daily. Active lidocaine-priloca ine (EMLA) 2.5-2.5 % Cream Apply to affected area 1 time daily as needed. 01/31/2018 Active ondansetron (ZOFRAN) 8 mg Tablet Take 8 mg by mouth every 8 hours as needed. 01/31/2018 Active polyethylene glycol (MIRALAX) 17 gram Powder in Packet Take 17 Grams by mouth 2 times daily. 01/06/2018 Active aspirin (VIRA CHEWABLE) 81 mg Tablet, Chewable Chew and Swallow 1 Tablet (81 mg) by mouth daily with breakfast. 90 Tablet 02/22/2018 Active atorvastatin (LIPITOR) 20 mg tablet Take 1 Tablet (20 mg) by mouth daily at bedtime. 30 Tablet 02/21/2018 Active amLODIPine (NORVASC) 5 mg tablet Take 1 Tablet (5 mg) by mouth daily. 30 Tablet 02/21/2018 Active Active Problems Problem Noted Date Diagnosed Date Aphasia 02/20/2018 Right sided weakness 02/20/2018 Malignant neoplasm of ascending colon 02/20/2018 Malignant neoplasm of upper outer quadrant of breast in female, estrogen receptor negative 02/20/2018 History of TIA (transient ischemic attack) and s troke Immunizations Name Administration Dates Next Due Influenza Seasonal Unspecified Formulation IM Social History Tobacco Use Types Packs/Day Years Used Date Smoking Tobacco: Former Cigarettes 1 40 Smokeless Tobacco: Never Alcohol Use Standard Drinks/Week Comments No 0 (1 standard drink = 0.6 oz pur e alcohol) Sex and Gender Information Value Date Recorded Sex Assigned at Not on file Gender Identity Not on file Sexual Orientation Not on file Last Filed Vital Signs Vital Sign Reading Time Taken Comments Blood Pressure 171/77 02/21/2018 6:17 PM CDT Pulse 75 02/21/2018 4:31 PM CDT Temperature 37 ??C (98.6 ??F) 02/21/2018 4:31 PM CDT Respiratory Rate 18 02/21/2018 4:31 PM CDT Oxygen Saturation 95% 02/21/2018 4:31 PM CDT Inhaled Oxygen Concentration - - Weight 115.7 kg (255 lb 1.6 oz) 02/21/2018 4:10 AM CDT Height 175.3 cm (5' 9 ) 02/20/2018 7:56 PM CDT Body Mass Index 37.67 02/20/2018 7:56 PM CDT Plan of Treatment Health Maintenance Due Date Last Done Comments DTAP/TDAP/TD VACCINES (1 - Tdap) 1976 BREAST CANCER SCREENING 1997 ZOSTER VACCINE (1 of 2) 07/28/2007 RSV VACCINE (60+ or ) (1 - Risk 60-74 years 1-dose series) 2017 OSTEOPOROSIS SCREENING 2022 PNEUMOCOCCAL VACCINE 65+ YEA RS (1 of 1 - PCV) 2022 INFLUENZA VACCINE (#1) 2023 02/20/2018, 2017 Advance Directives For more information, please contact: [phone] * Full Code (Latest Code Status on File) Date Activated Date Inactivated Comments 02/20/2018 7:22 PM 02/21/2018 8:[address] Relationship Specialty Start Date End Date Ravi Smith MD PCP - General Family Practice 02/20/18
--- OUTSIDE RECORDS SUMMARY | 2024-04-24 14:09 | XMS_ITS | Encounter Summary ---
Author Organization [facility] Address [address] [place] [address] Care Team Providers Care Bus And Trolley Dispatcher Name Role Phone Hugo Smith MD Primary Care Provider [phone] Reason for Visit * Reason Comments Dysphasia Extremity Weakness * Auth/Cert Specialty Diagnoses / Procedures Referred By Vijaya simpson Referred To Contact [facility] Medical Telemetry [address] [place] [address] Referral ID Status Reason Start Date Expiration Date Visits Re quested Visits Authorized [id number] 1 1 Encounter Details Date Type Department Care Team (Late st Contact Info) Description 02/20/2018 3:45 PM CDT - 02/21/2018 3:57 PM CDT Emergency [facility] Medical Telemetry [address] [place] [address] [place] [address] [place] [address] Víctor Conde MD [address] [place] [id number] Nolan Barrera MD [address] [place] [address] Aphasia Discharge Disposition: Home or Self Care Social History Tobacco Use Types Packs/Day Years [...] Sign Reading Time Taken Comments Blood Pressure 165/72 02/21/2018 1:00 PM CDT Pulse 70 02/21/2018 1:00 PM CDT Temperature 37.1 ??C (98.7 ??F) 02/21/2018 1:00 PM CD T Respiratory Rate 17 02/21/2018 1:00 PM CDT Oxygen Saturation 99% 02/21/2018 1:00 PM CDT Inhaled Oxygen Concentration - - Weight 115.7 kg (255 lb 1.6 oz) 02/21/2018 4:10 AM CDT Height 175.3 cm (5' 9 ) 02/20/2018 7:56 PM CDT Body Mass Index 37.67 02/20/2018 7:56 PM CDT documented in this encounter Discharge Summaries * Nolan Barrera MD - 02/21/2018 3:[address] [facility] Hospitalist Group Discharge Summary Patient Name: Aleah Gerber / 62 y.o. / female : 1955 PCP: Hugo Smith MD Date of Admit: 02/20/2018 Date of DC : 02/21/2018, 5:42 PM Admitting Dx: Aphasia Discharge Diagnoses: ?? 1. TIA 2. Uncontrolled HTN, new 3. Known colon cancer- 4. Known left breast cancer-follow 5. Generalized anxiety disorder 6. Leukopenia and thrombus of cytopenia probably secondary to chemotherapy- advise follow-up with her oncologist at site and center for monitoring Hospital Course: Known history of left breast cancer status post lumpectomy and colon cancer status post resection undergoing chemotherapy at [facility]. Came in with speech disturbance and right-sided weakness/ataxia, now resolved. Neurology Dr Rebolledo saw and MRI B/BS was done which was negative for CVA. Echo was ok.Dx is TIA possibility of chemo induced (unable to rule out). He recommended ASA 81 mg, Lipitor 10 mg QD. She has thrombocytopenia but per Dr Rebolledo needs ASA at least for stroke prevention. Patient has uncontrolled HTN, new. Started Norvasc 5 mg QD. Follow up w PCP to manage chronic med issues, HTN. She has a appointment Saturday. D/W patient and she is agreeable and all questions and concerns were answered. Tried calling Oncology-Dr Abbi Ventura per patient request but no answer on their phone line.Left a message and left my phone number. She called back and was informed of abovementioned. She asked if we could ask Aleah to be a [facility] Office. Called Patient, she does not have a ride, so she will call their office. Discharge medications and new prescriptions: Medication List START taking these medications amLODIPine 5 mg tablet Commonly known as: NORVASC Take 1 Tablet (5 mg) by mouth daily. Signed by: Nolan Barrera MD Quantity: 30 Tablet Refills: 0 aspirin 81 mg Tablet, Chewable Commonly known as: VIRA CHEWABLE Chew and Swallow 1 Tablet (81 mg) by mouth daily with breakfast. Start taking on: 02/22/2018 Signed by: Nolan Barrera MD Quantity: 90 Tablet Refills: 0 atorvastatin 20 mg tablet Commonly known as: LIPITOR Take 1 Tablet (20 mg) by mouth daily at bedtime. Signed by: Nolan Barrera MD Quantity: 30 Tablet Refills: 0 CONTINUE taking these medications ALPRAZolam 0.25 mg tablet Commonly known as: XANAX Take 0.25 mg by mouth 3 times daily as needed for Anxiety . Refills: 0 bisacodyl 5 mg Delayed Release tablet Commonly known as: DULCOLAX Take 5 mg by mouth 1 time daily as needed. Refills: 0 BREO ELLIPTA 100-25 mcg/dose Disk with Device Take 1 Puff by inhalation daily. Refills: 0 Generic drug: fluticasone-vilanterol Cholecalciferol (Vitamin D3) 2,000 unit Capsule Take 1 Tablet by mouth daily . Refills: 0 dexamethasone 4 mg tablet Commonly known as: DECADRON Take 4 mg by mouth see administration instructions 1 tab on days 2-4 of chemo q 2 weeks.. Refills: 0 famotidine 20 mg tablet Commonly known as: PEPCID Take 20 mg by mouth 2 times daily. Refills: 0 lidocaine-prilocaine 2.5-2.5 % Cream Commonly known as: EMLA Apply to affected area 1 time daily as needed. Refills: 0 ondansetron 8 mg Tablet Commonly known as: ZOFRAN Take 8 mg by mouth every 8 hours as needed. Refills: 0 polyethylene glycol 17 gram Powder in Packet Commonly known as: MIRALAX Take 17 Grams by mouth 2 times daily. Refills: 0 prochlorperazine maleate 10 mg tablet Commonly known as: COMPAZINE Take 10 mg by mouth every 6 hours as needed. Refills: 0 sertraline 50 mg tablet Commonly known as: ZOLOFT Take 50 mg by mouth daily at bedtime . Refills: 0 venlafaxine 75 mg Extended Release 24 hour capsule Commonly known as: EFFEXOR XR Take 75 mg by mouth daily. Refills: 0 Where to Get Your Medications These medications were sent to [facility] [place] [id number] Hours: Saturday - Saturday 7AM - 8PM. Saturday - Saturday 9AM - 7PM ?? amLODIPine 5 mg tablet ?? aspirin 81 mg Tablet, Chewable ?? atorvastatin 20 mg tablet Consultants: IP CONSULT TO CASE MANAGEMENT IP CONSULT TO STROKE TEAM IP CONSULT TO NEUROLOGY IP CONSULT TO PHYSICAL MEDICINE REHAB IP CONSULT TO STROKE TEAM IP CONSULT TO HOSPITALIST Discharge Lab Data: Lab Results Component Value Date/Time WBC 2.9 (L) 02/20/2018 04:00 PM HEMATOCRIT 34.9 (L) 02/20/2018 04:00 PM HEMOGLOBIN 11.8 02/20/2018 04:00 PM PLATELETS 138 (L) 02/20/2018 04:00 PM SODIUM 139 02/20/2018 04:00 PM CHLORIDE 107 02/20/2018 04:00 PM POTASSIUM 3.8 02/20/2018 04:00 PM CO2 19 (L) 02/20/2018 04:00 PM BUN 11 02/20/2018 04:00 PM GLUCOSE 179 (H) 02/20/2018 04:00 PM INR 1.0 02/20/2018 04:00 PM AST 20 02/20/2018 04:00 PM ALT 20 02/20/2018 04:00 PM Labs Needing Follow Up: CMP in 2-4 weeks w PCP to monitor liver enzymes after starting statin Discharge Exam: BP (!) 198/85 (BP Location: Left arm, Patient Position (BP): Sitting) Pulse 75 Temp 98.6 ??F (37 ??C) (Oral) Resp 18 Ht 5' 9 (1.753 m) Wt 115.7 kg (255 lb 1.6 oz) SpO2 95% ? No Comment: menopausal BMI 37.67 kg/m?? General appearance alert, cooperative, no distress, appears stated age Head Normocephalic, without obvious abnormality, atraumatic Eyes conjunctivae/corneas clear. PERRL, EOM's intact. Lungs clear to auscultation bilaterally Chest wall no tenderness Heart regular rate and rhythm, S1, S2 normal, no murmur, click, rub or gallop Abdomen soft, non-tender. Bowel sounds normal. No masses, No organomegaly Extremities extremities normal, atraumatic, no cyanosis or edema Pulses 2+ and symmetric Skin Skin color, texture, turgor normal. No rashes or lesions Neuro Normal/NO focal neurological deficits noted Discharge Condition: improved to baseline. Disposition: home. Patient instructions: Activity: activity as tolerated. Diet: DIET CARDIAC Low Cholesterol (AHA),; 2GM Sodium (Low), Wound Care: None needed. Follow-up: Hugo Smith MD /Please call for appointment earliest time available. Code Status At time of Discharge: ACLS 45 mins Time spent on patient today which includes direct patient examination and exam, discussing the abovementioned medical problems, discussing and answering question, from patient >50% of which was spent managing or examining patient. Signed: Nolan Barrera MD 02/21/2018, 5:[address] [facility] Hospitalist Group documented in this encounter Discharge Instructions * Discharge Instructions* Galilea Cifuentes, LYDIA - 02/21/2018 4:04 PM CDT CMP in 2-4 weeks w PCP to monitor liver enzymes after starting statin * Attachments The following attachments cannot be sent through Care Everywhere. * TIA (Transient Ischemic Attack) (Guatemalan) * Aphasia: General Info (Guatemalan) * Weakness: Generalized (Guatemalan) documented in this encounter Medications at Time of Discharge Medication Sig Dispensed Refills Start Date End Date aspirin (VIRA CHEWABLE) 81 mg Tablet, Chewable Chew and Swallow 1 Tablet (81 mg) by mouth daily with breakfast. 90 Tablet 02/22/2018 atorvastatin (LIPITOR) 20 mg tablet Take 1 Tablet (20 mg) by mouth daily at bedtime. 30 Tablet 02/21/2018 amLODIPine (NORVASC) 5 mg tablet Take 1 Tablet (5 mg) by mouth daily. 30 Tablet 02/21/2018 sertraline (ZOLOFT) 50 mg tablet Take 50 mg by mouth daily at bedtime . ALPRAZolam (XANAX) 0.25 mg tablet Take 0.25 mg by mouth 3 times daily as needed for Anxiety . fluticasone-vilanter ol (BREO ELLIPTA) 100-25 mcg/dose Disk with Device Take 1 Puff by inhalation daily. Cholecalciferol, Vitamin D3, 2,000 unit Capsule Take 1 Tablet by mouth daily . bisacodyl (DULCOLAX) 5 mg Delayed Release tablet Take 5 mg by mouth 1 time daily as needed. 01/06/2018 dexamethasone (DECADRON) 4 mg tablet Take 4 mg by mouth see administration instructions 1 tab on days 2-4 of chemo q 2 weeks.. 01/31/2018 famotidine (PEPCID) 20 mg tablet Take 20 mg by mouth 2 times daily. lidocaine-prilocaine (EMLA) 2.5-2.5 % Cream Apply to affected area 1 time daily as needed. 01/31/2018 ondansetron (ZOFRAN) 8 mg Tablet Take 8 mg by mouth every 8 hours as needed. 01/31/2018 polyethylene glycol (MIRALAX) 17 gram Powder in Packet Take 17 Grams by mouth 2 times daily. 01/06/2018 prochlorperazine maleate (COMPAZINE) 10 mg tablet Take 10 mg by mouth every 6 hours as needed. 01/31/2018 04/01/2018 venlafaxine (EFFEXOR XR) 75 mg Extended Release 24 hour capsule Take 75 mg by mouth daily. 02/20/2018 02/20/2019 documented as of this encounter Progress Notes * Dion Bolivar MD - 02/21/2018 1:24 PM CDT Impression; Possible TIA Chemo induced is a possibility Plan; Complete stroke work up MRI brain ASA 81 mg if ok from oncology stand point * Yari Reynolds, Physical Therapist - 02/21/2018 11:45 AM CDT 11:45 - PT order was received. Spoke with pt at the bedside. Pt reported she has been up moving and that she is ambulating without any difficulty. Pt reported her symptoms have resolved and that shehas no concerns with mobility at this time. Pt stated she feels that she does not need PT at this time. Discontinue. * Rohan Jesus MD - 02/21/2018 10:30 AM CDT Acute Rehab. Consult received through stroke protocol. Work up and therapy evals pending. Will f/u for rehab needs. Pt will need ins approval. Rohan Jesus M.D. * Cynthia Perez SLP - 02/21/2018 9:24 AM CDT Patient reports onset of speech difficulties and right sided weakness yesterday. States she startedchemo tx and they are unsure if she had a reaction or TIA. Patient up eating breakfast without difficulty. Speech is back to baseline. No further speech therapy indicated. * Nolan Barrera MD - 02/21/2018 9:[address] [facility] Hospitalist Group Daily Progress Note Admit Date: 02/20/2018 Date of Note: 02/21/2018, 9:14 AM PCP: Hugo Smith MD LOS: 0 days Subjective: Patient is back to baseline denies any aphasia or right-sided weakness at this time No headaches no dizziness Blood pressure high Objective: Vitals: 02/20/18 1956 02/20/18 2356 02/21/18 0410 02/21/18 0908 BP: (!) 183/64 (!) 180/74 (!) 150/66 (!) 161/53 BP Location: Left arm Left arm Left arm Left arm Patient Position (BP): Supine Supine Supine Sitting Pulse: 73 90 68 64 Resp: Temp: 98 ??F (36.7 ??C) 97.9 ??F (36.6 ??C) 97.6 ??F (36.4 ??C) 98.7 ??F (37.1 ??C) TempSrc: Oral Oral Oral Oral SpO2: 97% 100% 100% 97% Weight: 108.9 kg (240 lb) 115.7 kg (255 lb 1.6 oz) Height: 5' 9 (1.753 m) Exam: General appearance No Acute Distress, Alert and cooperative Lungs clear to auscultation bilaterally Heart regular rate and rhythm, S1, S2 normal, no murmur, click, rub or gallop Abdomen soft, non-tender. Bowel sounds normal. No masses, No organomegaly Extremities extremities normal, atraumatic, no cyanosis or edema Data Base: Labs for past 3 days: Lab Results Component Value Date/Time PHUA 5.0 02/20/2018 04:48 PM SGUR 1.014 02/20/2018 04:48 PM URINELEUKOC Negative 02/20/2018 04:48 PM NITRITEUA Negative 02/20/2018 04:48 PM KETONEURINE Negative 02/20/2018 04:48 PM PROTEINUA Negative 02/20/2018 04:48 PM GLUUA Negative 02/20/2018 04:48 PM BLOODUA Negative 02/20/2018 04:48 PM No results found for: PROTEINUR Lab Results Component Value Date/Time WBC 2.9 (L) 02/20/2018 04:00 PM HGB 11.8 02/20/2018 04:00 PM HCT 34.9 (L) 02/20/2018 04:00 PM PLT 138 (L) 02/20/2018 04:00 PM MCV 89.1 02/20/2018 04:00 PM Lab Results Component Value Date/Time NA 139 02/20/2018 04:00 PM K 3.8 02/20/2018 04:00 PM CL 107 02/20/2018 04:00 PM CO2 19 (L) 02/20/2018 04:00 PM CA 9.0 02/20/2018 04:00 PM BUN 11 02/20/2018 04:00 PM CREAT 0.60 (L) 02/20/2018 04:18 PM GLUCOSE 179 (H) 02/20/2018 04:00 PM ANIONGAP 13 02/20/2018 04:00 PM Lab Results Component Value Date/Time NA 139 02/20/2018 04:00 PM K 3.8 02/20/2018 04:00 PM CL 107 02/20/2018 04:00 PM CO2 19 (L) 02/20/2018 04:00 PM CA 9.0 02/20/2018 04:00 PM BUN 11 02/20/2018 04:00 PM CREAT 0.60 (L) 02/20/2018 04:18 PM GLUCOSE 179 (H) 02/20/2018 04:00 PM TOTALPROTEIN 6.8 02/20/2018 04:00 PM ALBUMIN 4.0 02/20/2018 04:00 PM BILITOTAL 0.2 02/20/2018 04:00 PM ALKPHOS 79 02/20/2018 04:00 PM AST 20 02/20/2018 04:00 PM ALT 20 02/20/2018 04:00 PM ANIONGAP 13 02/20/2018 04:00 PM Lab Results Component Value Date/Time CHOLTOT 216 (H) 02/21/2018 08:01 AM HDL 51 (L) 02/21/2018 08:01 AM LDLCALC 136 (H) 02/21/2018 08:01 AM TRIGLYCERIDE 145 02/21/2018 08:01 AM Lab Results Component Value Date/Time CREAT 0.60 (L) 02/20/2018 04:18 PM BUN 11 02/20/2018 04:00 PM NA 139 02/20/2018 04:00 PM K 3.8 02/20/2018 04:00 PM CL 107 02/20/2018 04:00 PM CO2 19 (L) 02/20/2018 04:00 PM Lab Results Component Value Date/Time GLUCOSE 179 (H) 02/20/2018 04:00 PM Lab Results Component Value Date/Time HGBA1C 6.4 (H) 02/20/2018 09:38 PM No results found for: CPK No results found for: CRP, CRPHS Lab Results Component Value Date/Time PT 13.1 02/20/2018 04:00 PM INR 1.0 02/20/2018 04:00 PM APTT 29.2 02/20/2018 04:00 PM No results found for: FIBRINOGENQN No results found for: DDIMERQUAL, DDIMERQUANT, DDIMERCALC No results found for: BASETROP, 2HRTROP, 6HRTROP No results found for: BASETROP, 2HRTROP, 6HRTROP, DELTA Active Medications: CURRENT (IP only) meds: Current Facility-Administered Medications Ordered in Epic Medication Dose Route Frequency Provider Last Rate Last Dose ??? naloxone (NARCAN) 0.4 mg/mL injection 0.1 mg 0.1 mg IV See Admin Notes Irvin Cho MD ??? sodium chloride flush injection 5 mL 5 mL IV q 12 hour Víctor Conde MD 5 mL at 02/21/18 0730 ??? sodium chloride flush injection 5 mL 5 mL IV See Admin Notes Víctor Conde MD ??? sodium chloride 0.9 % 250 mL flush bag 25 mL 25 mL IV See Admin Notes Víctor Toussaint MD ??? dextrose 5 % in water 250 mL flush bag 25 mL 25 mL IV See Admin Notes Víctor Toussaint MD ??? fluticasone-vilanterol (BREO ELLIPTA) 100-25 mcg/dose inhaler 1 Puff 1 Puff Inhalation Resp Daily Paulo Coker, DO 1 Puff at 02/21/18 0859 ??? famotidine (PEPCID) tablet 20 mg 20 mg Oral BID Paulo Coker, DO 20 mg at 02/21/18 0858 ??? polyethylene glycol (MIRALAX) packet 17 Gram 17 Gram Oral BID Paulo Coker, DO ??? ALPRAZolam (XANAX) tablet 0.25 mg 0.25 mg Oral TID PRN Paulo Coker, DO ??? sertraline (ZOLOFT) tablet 50 mg 50 mg Oral Daily BEDTIME Paulo Coker, DO 50 mg at ??? venlafaxine (EFFEXOR XR) SR 24 hour capsule 75 mg 75 mg Oral Daily Paulo Coker, DO 75 mg at1 0858 ??? aspirin (VIRA CHEWABLE) chew tablet 324 mg 324 mg Oral Daily Paulo Coker, DO 324 mg at 02/21/18 0858 ??? enoxaparin (LOVENOX) injection 40 mg 40 mg subCUT q 24 hour Paulo Coker, DO 40 mg at 02/20/18 2222 or Current Facility-Administered Medications Ordered in Epic Medication Dose Route Frequency Provider Last Rate Last Dose ??? naloxone (NARCAN) 0.4 mg/mL injection 0.1 mg 0.1 mg IV See Admin Notes Irvin Cho MD ??? sodium chloride flush injection 5 mL 5 mL IV q 12 hour Víctor Conde MD 5 mL at 02/21/18 0730 ??? sodium chloride flush injection 5 mL 5 mL IV See Admin Notes Víctor Conde MD ??? sodium chloride 0.9 % 250 mL flush bag 25 mL 25 mL IV See Admin Notes Víctor Toussaint MD ??? dextrose 5 % in water 250 mL flush bag 25 mL 25 mL IV See Admin Notes Víctor Toussaint MD ??? fluticasone-vilanterol (BREO ELLIPTA) 100-25 mcg/dose inhaler 1 Puff 1 Puff Inhalation Resp Daily Paulo Coker, DO 1 Puff at 02/21/18 0859 ??? famotidine (PEPCID) tablet 20 mg 20 mg Oral BID Paulo Coker, DO 20 mg at 02/21/18 0858 ??? polyethylene glycol (MIRALAX) packet 17 Gram 17 Gram Oral BID Paulo Coker, DO ??? ALPRAZolam (XANAX) tablet 0.25 mg 0.25 mg Oral TID PRN Paulo Coker, DO ??? sertraline (ZOLOFT) tablet 50 mg 50 mg Oral Daily BEDTIME Paulo Coker, DO 50 mg at ??? venlafaxine (EFFEXOR XR) SR 24 hour capsule 75 mg 75 mg Oral Daily Paulo Coker, DO 75 mg at1 0858 ??? aspirin (VIRA CHEWABLE) chew tablet 324 mg 324 mg Oral Daily Paulo Coker DO 324 mg at 02/21/18 0858 ??? enoxaparin (LOVENOX) injection 40 mg 40 mg subCUT q 24 hour Paulo Coker, DO 40 mg at 02/20/18 2222 Radiology Test: Results for orders placed or performed during the hospital encounter of 02/20/18 XR CHEST PA OR AP 1 VW Narrative XR CHEST PA OR AP 1 VW DATE: 02/20/2018 5:02 PM HISTORY: Colon cancer. Right side weakness and slurred speech.. FINDINGS: AP portable upright view of the chest. The lungs are clear. The heart and mediastinum is within normal limits. There is a Port-A-Cath with its tip at the cavoatrial junction. Impression IMPRESSION: No active disease. DICTATION LOCATION: Location [address] [place] [address] No results found for this or any previous visit. No results found for this or any previous visit. Cta Head And Neck W Wo Contrast Result Date: 02/20/2018 CT ANGIOGRAM BRAIN AND NECK WITH AND WITHOUT IV CONTRAST WITH REFORMATTED IMAGES DATE: 02/20/2018 4:17 PM HISTORY: Acute stroke with right-sided weakness and slurred speech. COMPARISON: No prior studies are available for comparison. TECHNIQUE: 1.25 mm contiguous axial images of the brain and neck from the aortic arch through the vertex with and without contrast. Sagittal and coronal reformatted images were performed. 3D volumetric analysis with color image processing of the syc[place] of [place] intracranial circulation and cervical vasculature was performed on an independent workstation under thesupervision of the physician. 90 mL Isovue-370 was administered intravenously in performance of thestudy. The examination was performed with the adjustment of mA according to the patient size and/orthe use of Iterative Reconstruction Technique. FINDINGS: The thoracic inlet and lung apices are normal. The aortic arch and great vessels are normal. The bilateral cervical common carotid arteries and bilateral cervical vertebral arteries are normal in course and caliber. The bilateral cervical common carotid artery bifurcations are normal. The bilateral cervical internal carotid arteries are patent and normal in caliber. No intracranial hemorrhage or acute brain parenchymal abnormality is identified. The A1 and A2 segments of the anterior cerebral arteries are normal. The anterior communicati ng artery is patent. The M1 and M2 segments of the middle cerebral arteries including the MCA bifurcations are normal. The basilar artery and proximal posterior cerebral arteries are normal in appearance. The reformatted images and 3D volumetric analysis fail to reveal any evidence of major vessel vessel occlusion. IMPRESSION: No major vessel intracranial arterial occlusion. DICTATION LOCATION: [address] Cerebral Perfusion Stdy W Cont Result Date: 02/20/2018 CT BRAIN PERFUSION WITH IV CONTRAST DATE: 02/20/2018 4:33 PM HISTORY: TIA, initial exam. Acute stroke with right-sided weakness. COMPARISON: No prior studies are available for comparison. TECHNIQUE: Contiguous axial perfusion images of the supratentorial compartment. 40 mL of Isovue-370 was administered intravenously in the performance of the study with color perfusion post processing. The examination was performed with the adjustment of mA according to the patient size and/or the use of Iterative Reconstruction Technique. FINDINGS: There is relatively symmetrical hemispheric perfusion with normal blood flow and blood volume bilaterally. The mean transit time is relatively symmetrical. There is no evidence of relative cerebral blood flow deficit with corresponding normal relative cerebralblood volume to suggest an acute perfusion defect or ischemic penumbra. IMPRESSION: Normal CT brain perfusion. DICTATION LOCATION: [address] Xr Chest Pa Or Ap 1 Vw Result Date: 02/20/2018 XR CHEST PA OR AP 1 VW DATE: 02/20/2018 5:02 PM HISTORY: Colon cancer. Right side weakness and slurred speech.. FINDINGS: AP portable upright view of the chest. The lungs are clear. The heart and mediastinum is within normal limits. There is a Port-A-Cath with its tip at the cavoatrial junction. IMPRESSION: No active disease. DICTATION LOCATION: [address] Head Wo Contrast Stroke Protocol Result Date: 02/20/2018 COMPUTED TOMOGRAPHY HEAD WITHOUT CONTRAST DATE: 02/20/2018 HISTORY: Slurred speech and right-sided weakness. History of breast and colon cancer. FINDINGS: Transverse brain sections are obtained without contrast revealing normal-sized ventricles and sulci. Mccoy-white differentiation is intact. Thereis no intracranial hemorrhage, mass effect, fluid collection, or skull lesion. IMPRESSION: Normal. DICTATION LOCATION: [address] Results for orders placed during the hospital encounter of 02/20/18 CT CEREBRAL PERFUSION STDY W CONT Impression IMPRESSION: Normal CT brain perfusion. DICTATION LOCATION: [address] Assessment/Plan: Known history of left breast cancer status post lumpectomy and colon cancer status post resection undergoing chemotherapy at [facility]. Came in with speech disturbance and right-sided weakness/ataxia, now resolved 1. To consider CVA/TIA-CT angiogram and perfusion unremarkable, pending MRI of the brain, pending neurology consult, possible chemotherapy related issue 2. Known colon [id number] with [facility] for continuation of chemotherapy 3. Known left breast [id number] with [facility] for continuation of therapy 4. Generalized anxiety disorder -continue home medications 5. Leukopenia and thrombus of cytopenia probably secondary to chemotherapy- advise follow-up with her oncologist at site and center for monitoring 6. DVT prophylaxis SCDs only secondary to thrombocytopenia no AC- Disposition: TBD 40 mins.- Time spent on patient today which includes direct patient examination and exam, discussing the abovementioned medical problems, discussing and answering question, from patient >50% of which was spent managing or examining patient. Current Code Status -Full Code Nolan Barrera MD [facility] Hospitalist Group * Patricia Blue, RT - 02/20/2018 4:13 PM CDT IMAGING SERVICES - COMPUTED TOMOGRAPHY MEDICATION and FLUSH PROTOCOL [facility] THIS PROTOCOL IS IMPLEMENTED WHEN AN APPROVED PROVIDER ORDERS A CT SCAN WITH CONTRAST BY PAPER OR ELECTRONIC ORDER. The secretary of police will order place an order in EPIC for contrast ???Scope of Practice - no cosignrequired?? . Enter the protocol in the patient???s electronic health record using Ontelarase: .[facility] Communication Orders: ??? For ordered imaging procedures requiring intravenous access: o Initiate a peripheral IV, if not already in place, and discontinue IV prior to discharge. Medication Orders: ??? Sodium chloride 0.9% (normal saline) flush up to 10 mLs PRN for IV evaluation, saline lock, or medication administration. ??? Sodium chloride 0.9% (normal saline) bolus up to 200 mLs PRN for power injection IV evaluation and IV Contrast flush. Procedure Specific Medications: CT ORAL CONTRAST PROTOCOLS FOR ADULTS ??? Use Iopamidol (Isovue-370) for CT scan unless patient has a documented allergy to contrast dye. ??? If allergy present, use Barium Sulfate (Creamy Vanilla Smoothie Readi-Cat 2) for procedure. ??? If at any time the Avionics Electrical Engineer has a question about which option to administer, seek clarification from a Radiologist. o Iopamidol (Isovue-370): 15ml added to 900mL of clear liquid of patient???s choice. Preferred route is oral. May use nasoenteric tube if needed. ??? Administer 900mL of the diluted Iopamidol (Isovue-370), orally, one time only. o Barium Sulfate (Creamy Vanilla Smoothie Readi-Cat 2) oral suspension: Preferred route is oral. May use nasoenteric tube if needed. ??? Administer 450mL of barium sulfate, orally, one time only. ??? For Enterography, give patient 450ml Breeza, a flavored beverage. CT ORAL CONTRAST PROTOCOLS FOR PEDIATRICS Pediatrics = up to age 18 ??? Pediatric Radiologist will approve of one of the following products selected for procedure. o Barium Sulfate (Creamy Vanilla Smoothie Readi-Cat 2) oral suspension: preferred route is oral. May use nasoenteric tube if needed. [place] to 3 months Administer up to 90mL of Barium Sulfate, Orally, one time only 4 months to 1 year old Administer up to 240mL of Barium sulfate , Orally, One Time Only 1 year old to 5 years old Administer up to 360mL of Barium sulfate , Orally, One Time Only 5 years old to 10 years old Administer up to 480mL of Barium sulfate , Orally, One Time Only Over 10 years old Administer up to 600mL of Barium sulfate , Orally, One Time Only o Iopamidol (Isovue-370)oral solution - Dilute 25mL of Iopamidol with 480mL of clear liquid of patient???s choice. Administer the dilutedsolution per age as follows: Preferred route is orally. May use nasoenteric tube if needed. - Send any remaining diluted Iopamidol solution with the patient to CT. [place] Administer 45mL of diluted Iopamidol oral solution, orally every 30 minutes x 2 doses. 1 month to 1 year old Administer 120mL of diluted Iopamidol oral solution, orally every 30 min x 2 doses. 1 year old to 5 years old Administer 180mL of diluted Iopamidol orally every 30 min x 2 doses. 5 years old to 10 years old Administer 240mL of diluted Iopamidol orally every 30 min x 2 doses. Over 10 years old Administer 300mL of diluted Iopamidol orally every 30 min x [address] IV CONTRAST PROTOCOLS ADULTS: (If patient is less than 55kg and confirm dose with radiologist) o Iopamidol (Isovue-370): Administer up to 2.2mL/kg (to MAX of 150mL) of Iopamidol 76%, intravenously, one time only PEDIATRICS: Use weight based dosing if patient is less than 55kg and confirm dose with radiologist.[place] to 15 years old Administer up to 2.2mL/kg (to MAX of 80 mL) of Iopamidol (Isovue-370) 76%, intravenously, one time only 15 years old and older Administer up to 2.2mL/kg (to MAX of 125mL) of Iopamidol (Isovue-370) 76%, intravenously, one time only Initiating Department(s): Imaging Services - CT Approved by: Karan Montilla, [employer] Knitter Services Date: 10/2017 Approved by: Jonathan Kennedy MD, Company Manager Date: 10/2017 Approved by: P&T Committee Date: 11/2017 Approved by: Medical Executive Committee Date: 12/2017 documented in this encounter H&P Notes * Paulo Coker, - 02/20/2018 8:[address] [facility] Hospitalist Group History & Physical Patient Name: Aleah Gerber Courtesy Copy to Primary Care Doctor: Hugo Smith MD Date of Admission: 02/20/2018 Date of Service: 02/20/2018 Chief Complaint: Chief Complaint Patient presents with ??? Dysphasia ??? Extremity Weakness HPI: Aleah Gerber is a 62 y.o. female who presents with speech disturbances and R sidedweakness. Patient states she was just finishing her second round of chemotherapy today at [facility] when she had the onset of word finding difficulty as well as right arm ataxia and weakness in right leg weakness. She told the staff at [facility], who felt it might be an allergic reaction to her chemotherapy. She was given Benadryl as well as Pepcid, but her symptoms did not significantly improve so EMS was called and the patient was brought to the emergency room for further evaluationand treatment. She states that currently she feels much better though she still feels as though she is having occasional word finding difficulty and some mild right arm ataxia. She does note a similar episode in 2003, where she was attempting to write a check and was unable to make the pen actuallyright on the check book. She states she was initially told at that time she might have had a mini stroke but was later seen by a neurologist who did not feel that this was consistent with a CVA. Patient states she was diagnosed with colon cancer in November and was also diagnosed with a left breast cancer at that time as well. She has since undergone a colon resection as well as a left lumpectomy. She is currently on her chemotherapy for her colon cancer. Her chemotherapy regimen consist of flu orouracil, leucovorin, and oxaliplatin. Past Medical History: Past Medical History: Diagnosis Date ??? Anxiety ??? Breast cancer ??? COPD (chronic obstructive pulmonary disease) ??? Depression ??? GERD (gastroesophageal reflux disease) d/t chemo ??? Malignant tumor of colon ??? Sleep apnea does not use cpap Past Surgical History: has a past surgical history that includes hx hernia repair (1973); hx bladder repair; hx colon surgery (12/2017); hx breast lumpectomy for cancer (Left, 01/2018); and hx tubal ligation. Current Medications: Prior to Admission medications Medication Sig Start Date End Date Taking? Authorizing Provider sertraline (ZOLOFT) 50 mg tablet Take 50 mg by mouth daily at bedtime . Yes Provider, Historical ALPRAZolam (XANAX) 0.25 mg tablet Take 0.25 mg by mouth 3 times daily as needed for Anxiety . Yes Provider, Historical fluticasone-vilanterol (BREO ELLIPTA) 100-25 mcg/dose Disk with Device Take 1 Puff by inhalation daily. Yes Provider, Historical Cholecalciferol, Vitamin D3, 2,000 unit Capsule Take 1 Tablet by mouth daily . Yes Provider, Historical dexamethasone (DECADRON) 4 mg tablet Take 4 mg by mouth see administration instructions 1 tab on days 2-4 of chemo q 2 weeks.. 01/31/18 Yes Provider, Historical famotidine (PEPCID) 20 mg tablet Take 20 mg by mouth 2 times daily. Yes Provider, Historical lidocaine-prilocaine (EMLA) 2.5-2.5 % Cream Apply to affected area 1 time daily as needed. 01/31/18 Yes Provider, Historical bisacodyl (DULCOLAX) 5 mg Delayed Release tablet Take 5 mg by mouth 1 time daily as needed. 01/06/18 Provider, Historical ondansetron (ZOFRAN) 8 mg Tablet Take 8 mg by mouth every 8 hours as needed. 01/31/18 Provider, Historical polyethylene glycol (MIRALAX) 17 gram Powder in Packet Take 17 Grams by mouth 2 times daily. 01/06/18Provider, Historical prochlorperazine maleate (COMPAZINE) 10 mg tablet Take 10 mg by mouth every 6 hours as needed. 01/31/18 04/01/18 Provider, Historical venlafaxine (EFFEXOR XR) 75 mg Extended Release 24 hour capsule Take 75 mg by mouth daily. 02/20/1810/18/19 Provider, Historical Medication Allergies: Allergies Allergen Reactions ??? Tetanus Toxoid Other (See Comments) Pain, swelling, fever at site Family History: Father- prostate cancer Sister- pancreatitis Social History: reports that she has quit smoking. Her smoking use included Cigarettes. She has a 40.00 pack-year smoking history. She has never used smokeless tobacco. She reports that she does not drink alcohol. Review of Systems History from pt General negative ENT negative Heme/Lymph negative Endocrine Negative CV negative for chest pain or dyspnea on exertion Respiratory negative for cough, shortness of breath, or wheezing GI negative negative for dysuria, trouble voiding, or hematuria MS negative Neuro positive for - speech problems and weakness Derm negative for skin rashes or unusual skin lesions All Other ROS Negative Physical Exam: BP (!) 183/64 (BP Location: Left arm, Patient Position (BP): Supine) Pulse 73 Temp 98 ??F (36.7??C) (Oral) Resp 18 Ht 5' 9 (1.753 m) Wt 108.9 kg (240 lb) SpO2 97% ? No Comment: menopausal BMI 35.44 kg/m?? General appearance alert, cooperative, no distress, appears stated age Head Normocephalic, without obvious abnormality, atraumatic Eyes conjunctivae/corneas clear. PERRL, EOM's intact. Nose Nares normal. Septum midline. Mucosa normal. No drainage or sinus tenderness. Throat Lips, mucosa, and tongue normal. Teeth and gums normal Neck supple, symmetrical, trachea midline, no adenopathy, thyroid: not enlarged, symmetric, no tenderness/mass/nodules, no carotid bruit and no JVD Back symmetric, no curvature. ROM normal. No CVA tenderness Lungs clear to auscultation bilaterally Chest wall Right upper chest wall port in place. Heart regular rate and rhythm, soft II/ PATY Abdomen soft, non-tender. Bowel sounds normal. No masses, No organomegaly. Midline surgical scar well healed. Extremities extremities normal, atraumatic, no cyanosis or edema Pulses 2+ and symmetric Skin Skin color, texture, turgor normal. No rashes or lesions Lymph nodes Cervical, supraclavicular, and axillary nodes normal. Neurologic Alert, oriented to person, place, time. Speech fluent though does have occasional word finding difficulty. Repetition intact. CN intact. Strength intact, symmetric. Data Base: CBC: Lab Results Component Value Date/Time WBC 2.9 (L) 02/20/2018 04:00 PM HGB 11.8 02/20/2018 04:00 PM HCT 34.9 (L) 02/20/2018 04:00 PM MCV 89.1 02/20/2018 04:00 PM PLT 138 (L) 02/20/2018 04:00 PM BMP: Lab Results Component Value Date/Time GLUCOSE 179 (H) 02/20/2018 04:00 PM BUN 11 02/20/2018 04:00 PM SODIUM 139 02/20/2018 04:00 PM POTASSIUM 3.8 02/20/2018 04:00 PM CHLORIDE 107 02/20/2018 04:00 PM CO2 19 (L) 02/20/2018 04:00 PM Lab Results Component Value Date/Time ALKALINE PHOSPHATASE 79 02/20/2018 04:00 PM ALT 20 02/20/2018 04:00 PM AST 20 02/20/2018 04:00 PM No components found for: PTT, PROTIME, LABINR EK02/20/2018 ??4:48 PM Component Results Component Value Ref Range & Units Status VENTRICULAR RATE 70 BPM ATRIAL RATE 70 BPM P-R INTERVAL 180 ms QRS DURATION 96 ms Q-T INTERVAL 374 ms QTC CALCULATION(BEZET) 403 ms P AXIS 35 degrees R AXIS -7 degrees T AXIS 52 degrees RESULT Normal sinus rhythm Normal ECG I have reviewed the tracing for the above EKG. Imaging: COMPUTED TOMOGRAPHY HEAD WITHOUT CONTRAST ?? DATE: 02/20/2018 ?? HISTORY: Slurred speech and right-sided weakness. History of breast and colon cancer. ?? FINDINGS: Transverse brain sections are obtained without contrast revealing normal-sized ventricles and sulci. Mccoy-white differentiation is intact. There is no intracranial hemorrhage, mass effect, fluid collection, or skull lesion. ? IMPRESSION: Normal. ?? CT BRAIN PERFUSION WITH IV CONTRAST ?? DATE: 02/20/2018 4:33 PM ?? HISTORY: TIA, initial exam. Acute stroke with right-sided weakness. ?? COMPARISON: No prior studies are available for comparison. ?? TECHNIQUE: Contiguous axial perfusion images of the supratentorial compartment. 40 mL of Isovue-370 was administered intravenously in the performance of the study with color perfusion post processing. The examination was performed with the adjustment of mA according to the patient size and/or the use of Iterative Reconstruction Technique. ? FINDINGS: There is relatively symmetrical hemispheric perfusion with normal blood flow and blood volume bilaterally. The mean transit time is relatively symmetrical. There is no evidence of relative cerebral blood flow deficit with corresponding normal relative cerebral blood volume to suggest an acute perfusion defect or ischemic penumbra. ? IMPRESSION: ?? Normal CT brain perfusion. ?? I have reviewed the above imaging. Assessment/Plan: 1. Speech disturbance and right-sided weakness- agree with admission for CVA evaluation. CT angiogram and perfusion studies are unremarkable at this time. Will get MRI brain, ask neurology to see thepatient, and will have therapy see the patient. Certainly given the patient's chemotherapy, specifically [place]ahuilla based therapy, can cause neurotoxicity and could be responsible for her symptoms. If CVA workup is negative, may need to consider this for further future chemotherapy. 2. Colon cancer-patient completed second round of chemotherapy today. We will need to monitor for any further adverse effects of chemotherapy. Will need to follow-up with her oncologist. 3. Left breast cancer-no acute issues at this time, patient is currently following with [facility]. 4. Anxiety-we will continue the patient's home medications. 5. Leukopenia/thrombocytopenia-I suspect this is secondary to her chemotherapy. We will need to monitor and can follow-up with her oncologist. 6. DVT Prophlaxis: SCDs * Current Planned Disposition: home * Current Code Status: Full Code Plan discussed in detail with patient Case discussed with the ER provider. Paulo Coker DO [facility] Hospitalist Group documented in this encounter Consult Notes * Dion Bolviar MD - 02/21/2018 2:55 PM CDTAssociated Order(s): IP CONSULT TO NEUROLOGY Neurology Consult Note Admit Date: 02/20/2018 ATTENDING PROVIDER; Nolan Barrera MD Reason for consultation; Right-sided weakness Impression; 1. Patient with possible left hemispheric TIA in presence of a aphasia and right-sided weakness symptoms seems to have resolved now, concern is whether the chemotherapy has triggered her symptoms, rule out a small stroke in presence of risk factors 2. History of colon cancer and she is getting a second round of chemotherapy she received cisplatin 3. History of breast cancer not being treated for that now 4. Obesity 5, Obstructive sleep apnea, does not use a CPAP Recommendations; 1. Complete stroke work up. 2. Aspirin 81 mg qd, mild thrombocytopenia but I think she needs to be on a low- dose aspirin 3. DVT prophylaxis with SCDs or Lovenox 4. Lipid Profile, LDL is elevated at 134, goal is to keep it less than 70, low- dose Lipitor can be started 5. MRI brain w/o contrast and ECHO with bubble study 6. Physical therapy, occupational therapy and speech therapy evaluations and treatments and acute rehab consult 7. Keep the blood pressure below 220/120 mmHg, if the blood pressure is above 220/120 labetalol 10 mg IV every every 15 minutes,call me if more than 2 doses are needed. 8. Discussed with patient Can be discharged after the workup is done Aspirin and Lipitor are recommended from neuro standpoint History of Presenting Illness; 62 y.o. female admitted 02/20/2018 with history of having sudden onset of right- sided weakness and speech problems started after the second round of chemotherapy on 02/20/2018 at [facility] and she has been sent to the [facility] ER. Patient had a right upper extremity weaknessand ataxia and right lower extremity weakness. She was given Benadryl and Pepcid at [facility] and did not help so she was sent here. CT head did not show any acute intercurrent pathology. Her blood pressure was elevated at 200 systolic initially patient was taken to CT angiogram and perfusion and there was no evidence of any major vessel occlusion. Possible TIA and was admitted patient not on aspirin. Patient does have a history of hypertension and also has obstructive sleep apnea does notuse CPAP. She has been diagnosed with colon cancer in November and also has left breast cancer apparently at present undergoing treatment for her colon cancer she had undergone colon resection. Her chemotherapy regimen consists of fluorouracil leucovorin and oxaliplatin . History obtained from the patient and the medical records. Her NIH score was basically 1 when she was admitted Allergies Allergen Reactions ??? Tetanus Toxoid Other (See Comments) Pain, swelling, fever at site Past Medical History: Diagnosis Date ??? Anxiety ??? Breast cancer ??? COPD (chronic obstructive pulmonary disease) ??? Depression ??? GERD (gastroesophageal reflux disease) d/t chemo ??? Malignant tumor of colon ??? Sleep apnea does not use cpap Past Surgical History: Procedure Laterality Date ??? HX BLADDER REPAIR ??? HX BREAST LUMPECTOMY FOR CANCER Left 01/2018 ??? HX COLON SURGERY 12/2017 colon resection ??? HX HERNIA REPAIR 1974 ??? HX TUBAL LIGATION Social History Substance Use Topics ??? Smoking status: Former Smoker Packs/day: 1.00 Years: 40.00 Types: Cigarettes ??? Smokeless tobacco: Never Used ??? Alcohol use No No family history on file. Prior to Admission medications Medication Sig Start Date End Date Taking? Authorizing Provider sertraline (ZOLOFT) 50 mg tablet Take 50 mg by mouth daily at bedtime . Yes Provider, Historical ALPRAZolam (XANAX) 0.25 mg tablet Take 0.25 mg by mouth 3 times daily as needed for Anxiety . Yes Provider, Historical fluticasone-vilanterol (BREO ELLIPTA) 100-25 mcg/dose Disk with Device Take 1 Puff by inhalation daily. Yes Provider, Historical Cholecalciferol, Vitamin D3, 2,000 unit Capsule Take 1 Tablet by mouth daily . Yes Provider, Historical dexamethasone (DECADRON) 4 mg tablet Take 4 mg by mouth see administration instructions 1 tab on days 2-4 of chemo q 2 weeks.. 01/31/18 Yes Provider, Historical famotidine (PEPCID) 20 mg tablet Take 20 mg by mouth 2 times daily. Yes Provider, Historical lidocaine-prilocaine (EMLA) 2.5-2.5 % Cream Apply to affected area 1 time daily as needed. 01/31/18 Yes Provider, Historical bisacodyl (DULCOLAX) 5 mg Delayed Release tablet Take 5 mg by mouth 1 time daily as needed. 01/06/18 Provider, Historical ondansetron (ZOFRAN) 8 mg Tablet Take 8 mg by mouth every 8 hours as needed. 01/31/18 Provider, Historical polyethylene glycol (MIRALAX) 17 gram Powder in Packet Take 17 Grams by mouth 2 times daily. 01/06/18Provider, Historical prochlorperazine maleate (COMPAZINE) 10 mg tablet Take 10 mg by mouth every 6 hours as needed. 01/31/18 04/01/18 Provider, Historical venlafaxine (EFFEXOR XR) 75 mg Extended Release 24 hour capsule Take 75 mg by mouth daily. 02/20/1810/18/19 Provider, Historical Medications; Current Facility-Administered Medications Medication Dose Route Frequency Provider Last Rate Last Dose ??? PERFLUTREN LIPID MICROSPHERES 1.1 MG/ML INTRAVENOUS SUSPENSION (CABINET OVERRIDE) ??? SODIUM CHLORIDE 0.9 % INJECTION SYRINGE (CABINET OVERRIDE) ??? SODIUM CHLORIDE 0.9 %, BACTERIOSTATIC INJECTION SOLUTION (CABINET OVERRIDE) ??? [COMPLETED] diazePAM (VALIUM) tablet 5 mg 5 mg Oral Once PRN Nolan Barrera MD 5 mg at 02/21/18 1247 ??? perflutren lipid microspheres (DEFINITY) 1.1 mg/mL injection 2 mL 2 mL IV Intra-Proc Once Paulo Coker, DO ??? sodium chloride 0.9 % flush injection 10 mL 10 mL IV See Admin Notes Paulo Coker, DO ??? sodium chloride 0.9 % flush injection 10 mL 10 mL IV See Admin Notes Paulo Coker, DO ??? sodium chloride bacteriostatic 0.9 % injection 10 mL 10 mL IV See Admin Notes Paulo Coker, DO ??? [COMPLETED] sodium chloride 0.9% bolus solution 50 mL 50 mL IV ONCE Marv Xavier MD Stopped at 02/20/18 1646 ??? [COMPLETED] iopamidol (ISOVUE-370) 76 % injection 130 mL 130 mL IV Intra- Proc Once Marv Xavier MD 90 mL at 02/20/18 1618 ??? [COMPLETED] iopamidol (ISOVUE-370) 76 % injection 40 mL 40 mL IV Intra-Proc Once Jonathan eKnnedy MD 40 mL at 02/20/18 1636 ??? naloxone (NARCAN) 0.4 mg/mL injection 0.1 mg 0.1 mg IV See Admin Notes Irvin Cho MD ??? sodium chloride flush injection 5 mL 5 mL IV q 12 hour Víctor Conde MD 5 mL at 02/21/18 0730 ??? sodium chloride flush injection 5 mL 5 mL IV See Admin Notes Víctor Conde MD ??? sodium chloride 0.9 % 250 mL flush bag 25 mL 25 mL IV See Admin Notes Víctor Toussaint MD ??? dextrose 5 % in water 250 mL flush bag 25 mL 25 mL IV See Admin Notes Víctor Toussaint MD ??? fluticasone-vilanterol (BREO ELLIPTA) 100-25 mcg/dose inhaler 1 Puff 1 Puff Inhalation Resp Daily Paulo Coker, DO 1 Puff at 02/21/18 0859 ??? famotidine (PEPCID) tablet 20 mg 20 mg Oral BID Paulo Coker, DO 20 mg at 02/21/18 0858 ??? polyethylene glycol (MIRALAX) packet 17 Gram 17 Gram Oral BID Paulo Coker, DO ??? ALPRAZolam (XANAX) tablet 0.25 mg 0.25 mg Oral TID PRN Paulo Coker, DO ??? sertraline (ZOLOFT) tablet 50 mg 50 mg Oral Daily BEDTIME Paulo Coker, DO 50 mg at ??? venlafaxine (EFFEXOR XR) SR 24 hour capsule 75 mg 75 mg Oral Daily Paulo Coker, DO 75 mg at1 0858 ??? aspirin (VIRA CHEWABLE) chew tablet 324 mg 324 mg Oral Daily Paulo Coker, DO 324 mg at 02/21/18 0858 ??? enoxaparin (LOVENOX) injection 40 mg 40 mg subCUT q 24 hour Paulo Coker, DO 40 mg at 02/20/18 2222 ??? [DISCONTINUED] enoxaparin (LOVENOX) injection 40 mg 40 mg subCUT q 24 hour Irvin Cho MD Patient Active Problem List Diagnosis Code ??? Aphasia R47.01 ??? Right sided weakness R53.1 ??? Malignant neoplasm of ascending colon C18.2 ??? Malignant neoplasm of upper outer quadrant of breast in female, estrogen receptor negative C50.419, Z17.1 ??? History of TIA (transient ischemic attack) and stroke Z86.73 Review of Systems A comprehensive review of systems was completed. All other systems negative except as marked. Additional ROS noted in HPI. Positive (+) Constitutional : headache (-), weight loss (-), fever(-),weight gain(-) Eyes: blurring of vision (-), double vision (-) Ears: decreased hearing (-), ear discharge (-),ringing (-) Nose: itching (-), bleeding (-), congestion Respiratory: cough (-), wheezing (-), shortness of breath (-) Cardiac: Chest pain (-), palpitations (-), arrythmia (-) Gastrointestinal: nausea (-) vomiting (-), diarrhea (-), abdomen pain (- ),constipation (-), Genito urinary: burning urination (-), frequency urination (-), nocturia (-) Musculoskeletal: joint pain (-), joint swelling (-), gout (-), arthritis (-), Hematologic: anemia (-), low blood counts (-), transfusions (-), cancer (-) Endocrine: Polyuria (-), polydypsia (-), polyphagia Skin: Rash (-), itching (-), cancer (-) Psychiatric: depression (-), anxiety (-), suicidal ideations (-), hallucinations (-) MEDIA PRODUCTION SUPPORT MANAGER: Seizures (-), weakness (+), tingling (-), numbness (+),memory loss(-)+ speech difficulty Sleep; Snoring (-) , insomnia (-) , RLS (-) , sleep walking (-) , sleep talking (-) Physical Exam BP (!) 165/72 (BP Location: Left arm, Patient Position (BP): Sitting) Pulse 70 Temp 98.7 ??F (37.1 ??C) (Oral) Resp 17 Ht 5' 9 (1.753 m) Wt 115.7 kg (255 lb 1.6 oz) SpO2 99% ? No Comment: menopausal BMI 37.67 kg/m?? at the time of this note General; Alert, well-appearing, no apparent distress Head; Atraumatic, no obvious abnormality Eyes; Midline, nonicteric, not pale Ears; Pinnae normal Nose; No discharges, mucous membrane normal Mouth; No bleeding per gums Oropharynx; Narrow airway, Mallampati class Neck; Supple, no meningismus Heart; S1 and S2 regular Lungs; Clear to auscultation Abdomen; Soft, nontender, bowel sounds normal Extremities; No edema or cyanosis Skin; No rash, no petechiae Psychiatric; Normal affect and mood Neurological exam Mental status The patient is alert and oriented to person, place, and time with normal speech. Speech; Dysarthria Fluent Aphasia Cranial nerves (II, III, IV, ) Visual simmons normal in all quadrants. Pupils are round, reactive to light and accommodation. Extraocular movements are intact without ptosis. (V) Facial sensation is intact to bilaterally to dull, sharp, and light touch stimuli. (VII) Facial muscle strength is normal and equal bilaterally. (VIII) Hearing is normal bilaterally. (IX, X) Palate and uvula elevate symmetrically, with intact gag reflex (XI) Shoulder shrug strong, and equal bilaterally (XII) Tongue protrudes midline and moves symmetrically. DTR 1/4 through out Plantar reflex is downward bilaterally. Motor Good muscle tone. Strength is 5/5 Cerebellar [id number] normal bilaterally.Rapid alternating movements normal. Gait; Not tested Data Review; I have personally reviewed the lab data Lab Results Component Value Date/Time WBC 2.9 (L) 02/20/2018 04:00 PM HGB 11.8 02/20/2018 04:00 PM HCT 34.9 (L) 02/20/2018 04:00 PM MCV 89.1 02/20/2018 04:00 PM PLT 138 (L) 02/20/2018 04:00 PM Lab Results Component Value Date/Time BUN 11 02/20/2018 04:00 PM NA 139 02/20/2018 04:00 PM K 3.8 02/20/2018 04:00 PM CL 107 02/20/2018 04:00 PM CO2 19 (L) 02/20/2018 04:00 PM Lab Results Component Value Date/Time ALT 20 02/20/2018 04:00 PM AST 20 02/20/2018 04:00 PM ALKPHOS 79 02/20/2018 04:00 PM No results found for: WBCU, EPITHELIALC, BACTERIA Lab Results Component Value Date/Time HDL 51 (L) 02/21/2018 08:01 AM LDL CALCULATED 136 (H) 02/21/2018 08:01 AM I have personally reviewed the imaging studies Cta Head And Neck W Wo Contrast Result Date: 02/20/2018 CT ANGIOGRAM BRAIN AND NECK WITH AND WITHOUT IV CONTRAST WITH REFORMATTED IMAGES DATE: 02/20/2018 4:17 PM HISTORY: Acute stroke with right-sided weakness and slurred speech. COMPARISON: No prior studies are available for comparison. TECHNIQUE: 1.25 mm contiguous axial images of the brain and neck from the aortic arch through the vertex with and without contrast. Sagittal and coronal reformatted images were performed. 3D volumetric analysis with color image processing of the [place] of [place] intracranial circulation and cervical vasculature was performed on an independent workstation under thesupervision of the physician. 90 mL Isovue-370 was administered intravenously in performance of thestudy. The examination was performed with the adjustment of mA according to the patient size and/orthe use of Iterative Reconstruction Technique. FINDINGS: The thoracic inlet and lung apices are normal. The aortic arch and great vessels are normal. The bilateral cervical common carotid arteries and bilateral cervical vertebral arteries are normal in course and caliber. The bilateral cervical common carotid artery bifurcations are normal. The bilateral cervical internal carotid arteries are patent and normal in caliber. No intracranial hemorrhage or acute brain parenchymal abnormality is identified. The A1 and A2 segments of the anterior cerebral arteries are normal. The anterior communicati ng artery is patent. The M1 and M2 segments of the middle cerebral arteries including the MCA bifurcations are normal. The basilar artery and proximal posterior cerebral arteries are normal in appearance. The reformatted images and 3D volumetric analysis fail to reveal any evidence of major vessel vessel occlusion. IMPRESSION: No major vessel intracranial arterial occlusion. DICTATION LOCATION: [address] Cerebral Perfusion Stdy W Cont Result Date: 02/20/2018 CT BRAIN PERFUSION WITH IV CONTRAST DATE: 02/20/2018 4:33 PM HISTORY: TIA, initial exam. Acute stroke with right-sided weakness. COMPARISON: No prior studies are available for comparison. TECHNIQUE: Contiguous axial perfusion images of the supratentorial compartment. 40 mL of Isovue-370 was administered intravenously in the performance of the study with color perfusion post processing. The examination was performed with the adjustment of mA according to the patient size and/or the use of Iterative Reconstruction Technique. FINDINGS: There is relatively symmetrical hemispheric perfusion with normal blood flow and blood volume bilaterally. The mean transit time is relatively symmetrical. There is no evidence of relative cerebral blood flow deficit with corresponding normal relative cerebralblood volume to suggest an acute perfusion defect or ischemic penumbra. IMPRESSION: Normal CT brain perfusion. DICTATION LOCATION: [address] Xr Chest Pa Or Ap 1 Vw Result Date: 02/20/2018 XR CHEST PA OR AP 1 VW DATE: 02/20/2018 5:02 PM HISTORY: Colon cancer. Right side weakness and slurred speech.. FINDINGS: AP portable upright view of the chest. The lungs are clear. The heart and mediastinum is within normal limits. There is a Port-A-Cath with its tip at the cavoatrial junction. IMPRESSION: No active disease. DICTATION LOCATION: [address] Head Wo Contrast Stroke Protocol Result Date: 02/20/2018 COMPUTED TOMOGRAPHY HEAD WITHOUT CONTRAST DATE: 02/20/2018 HISTORY: Slurred speech and right-sided weakness. History of breast and colon cancer. FINDINGS: Transverse brain sections are obtained without contrast revealing normal-sized ventricles and sulci. Mccoy-white differentiation is intact. Thereis no intracranial hemorrhage, mass effect, fluid collection, or skull lesion. IMPRESSION: Normal. DICTATION LOCATION: Location [address] [place] [address] Thanks for allowing me to participate in the care of this patient. Dion Bolivar MD documented in this encounter ED Notes * Saloni Blake RN - 02/20/2018 6:33 PM CDT Report given to LYDIA Calero. * Saloni Blake RN - 02/20/2018 5:14 PM CDT Pt noted to have some twitching under her right eye. * Saloni Blake RN - 02/20/2018 4:09 PM CDT PT to CT with LYDIA Aragon * Saloni Blake RN - 02/20/2018 3:50 PM CDT Pt coming in after being treated at [facility] today for colon cancer. Pt also has a hx of breast cancer. Pt finished her cancer treatment at 1415 today and was normal at that time. Pt then at 1430 began having right sided weakness and slurred speech. Pt was given benadryl to see if she was having a reaction to cancer medication. On arrival to our facility, slurred speech was improvingand the right sided weakness of her arm had resolved but the patient was still having weakness in right leg. BP 182.73 96%RA 72Hr BS135 * Kassie Pastor RN - 02/20/2018 3:45 PM CDT Bed: 2414 Expected date: 02/20/18 Expected time: 3:43 PM Means of arrival: [facility] ([id number]) Comments: Go between [facility] coming from the [facility] right side weakness, slurred speech onset 1430 hx TIA no thinners bp 194/84 hr 70 rr 14-16 97 % d-stick 159 Stroke nurse called , returned call 1542 CT 2 * Irvin Cho MD - 02/20/2018 3:44 PM CDT HISTORY OF PRESENT ILLNESS Aelah Gerber, a 62 y.o. female presents to the ED with a Chief Complaint of Dysphasia and Extremity Weakness (1707) Aleah Gerber is a 62 y.o. female with a hx of colon and breast cancer who presents to the ED with via EMS from [facility] with complaint of speech difficulty and right sided weakness around 1430 after completing her chemotherapy treatment. She reports she was unable to lift her right leg or control her right arm and the fingers of her right hand, stating her fingers curled up and she was unable to straighten them. The patient's oncologist thought she may have been having an allergic reaction to the chemotherapy medication, so she was given Benadryl. The patient notes todaywas her second chemotherapy treatment. On arrival to this ED, the patient's speech has improved as well as her right sided weakness. She denies any left sided weakness, visual changes or facial droop. The patient is not anticoagulating. No other acute symptoms or modifying factors noted at this time. Subjective History provided by: The patient, a relative and the EMS personnel historical interpreter used: No Arrived by: EMS Arrived from: An outside facility Dysphasia Associated symptoms: no chest pain, no dizziness, no fever, no neck pain and no seizures Extremity Weakness Associated symptoms: no chest pain, no dizziness, no fever, no neck pain and no seizures REVIEW OF SYSTEMS Review of Systems Constitutional: Negative for appetite change, fatigue, fever and unexpected weight change. HENT: Negative for congestion, ear pain, nosebleeds and sore throat. Eyes: Negative for pain and visual disturbance. Respiratory: Negative for cough, chest tightness, shortness of breath, wheezing and stridor. Cardiovascular: Negative for chest pain, palpitations and leg swelling. Gastrointestinal: Negative for abdominal pain, constipation and diarrhea. Endocrine: Negative for cold intolerance, heat intolerance, polydipsia, polyphagia and polyuria. Genitourinary: Negative for difficulty urinating, flank pain and hematuria. Musculoskeletal: Positive for extremity weakness. Negative for back pain and neck pain. Skin: Negative for rash. Neurological: Positive for speech difficulty and weakness (right sided ). Negative for dizziness, tremors, seizures and syncope. Hematological: Negative for adenopathy. Does not bruise/bleed easily. Psychiatric/Behavioral: Negative for behavioral problems. The patient is not nervous/anxious. All other systems reviewed and are negative. PAST MEDICAL HISTORY REVIEWED MEDICAL: Patient has no past medical history of Asthma; Diabetes mellitus; or Seizure disorder. SURGICAL: Patient has no past surgical history on file. FAMILY: Patient's family history is not on file. SOCIAL: reports that she has quit smoking. She does not have any smokeless tobacco history on file. She reports that she does not drink alcohol. No history on file. Social History Other Topics Concern ??? Not on file PROBLEM LIST: Patient does not have a problem list on file. ALLERGIES Tetanus toxoid HOME MEDICATIONS Patient's Home Medications Current Home Medications ALPRAZOLAM (XANAX) 0.25 MG TABLET CHOLECALCIFEROL, VITAMIN D3, 2,000 UNIT CAPSULE FLUTICASONE-VILANTEROL (BREO ELLIPTA) 100-25 MCG/DOSE DISK WITH DEVICE SERTRALINE (ZOLOFT) 50 MG TABLET Medications Modified during this Encounter Medications Discontinued during this Encounter Objective PHYSICAL EXAM INITIAL VS BP: (!) 167/78 (02/20/181599), Heart Rate: 74 bpm (02/20/181599), Resp: 19 (02/20/181599), Temp:98.1 ??F (36.7 ??C) (02/20/181599), Temp src: Oral (02/20/181599), SpO2: 97 % (02/20/181599), Height: 5' 9 (175.3 cm) (02/20/181599), Weight: 108.9 kg (240 lb) (02/20/181599), BMI (Calculated):35.43 (02/20/181599) No LMP recorded. Physical Exam Constitutional: She is oriented to person, place, and time. She appears well- developed and well-nourished. No distress. HENT: Head: Normocephalic and atraumatic. Mouth/Throat: Oropharynx is clear and moist. No oropharyngeal exudate. Eyes: Pupils are equal, round, and reactive to light. EOM are normal. No scleral icterus. Neck: Normal range of motion. Neck supple. No JVD present. No tracheal deviation present. No thyromegaly present. Cardiovascular: Normal rate, regular rhythm, normal heart sounds and intact distal pulses. No murmur heard. Pulmonary/Chest: Effort normal and breath sounds normal. No stridor. No respiratory distress. She has no wheezes. She has no rales. She exhibits no tenderness. Abdominal: Soft. Bowel sounds are normal. She exhibits no distension and no mass. There is no tenderness. There is no guarding. Musculoskeletal: She exhibits no edema or tenderness. Lymphadenopathy: She has no cervical adenopathy. Neurological: She is alert and oriented to person, place, and time. Skin: Skin is warm and dry. She is not diaphoretic. Psychiatric: She has a normal mood and affect. Her behavior is normal. Nursing note and vitals reviewed. DIAGNOSTICS LAB: CBC WITH DIFFERENTIAL - Abnormal Result Value WBC 2.9 (*) RBC 3.92 HEMOGLOBIN 11.8 HEMATOCRIT 34.9 (*) MCV 89.1 MCH 30.1 MCHC 33.8 RDW 14.2 PLATELETS 138 (*) MPV 7.4 (*) NEUTROPHILS 84 (*) LYMPHOCYTES 11 (*) MONOCYTES 2 (*) EOSINOPHILS 1 BASOPHILS 1 IMMATURE GRANULOCYTES 0 NEUTROPHIL ABSOLUTE 2.50 LYMPHOCYTE ABSOLUTE 0.30 MONOCYTE ABSOLUTE 0.10 EOSINOPHIL ABSOLUTE 0.00 BASOPHILS ABSOLUTE 0.00 IMMATURE GRANULOCYTES ABSOLUTE 0.00 SEDIMENTATION RATE - Abnormal ESR (SEDIMENTATION RATE) 46 (*) COMPREHENSIVE METABOLIC PANEL - Abnormal SODIUM 139 POTASSIUM 3.8 CHLORIDE 107 CO2 19 (*) CALCIUM 9.0 BUN 11 CREATININE 0.78 GLUCOSE 179 (*) TOTAL PROTEIN 6.8 ALBUMIN 4.0 BILIRUBIN TOTAL 0.2 ALKALINE PHOSPHATASE 79 AST 20 ALT 20 GFR >60 GFR, >60 ANION GAP 13 POC CREATININE - Abnormal POC CREATININE 0.60 (*) GFR >60 GFR, >60 PTT - Normal PTT 29.2 PROTIME-INR - Normal PROTIME 13.1 INR 1.0 URINALYSIS WITH REFLEX CULTURE - Normal COLOR UA Pale Yellow CLARITY UA Clear SPECIFIC GRAVITY UA 1.014 PH UA 5.0 LEUKOCYTE ESTERASE UA Negative NITRITE UA Negative PROTEIN UA Negative GLUCOSE UA Negative KETONES UA Negative UROBILINOGEN UA Normal BILIRUBIN UA Negative BLOOD UA Negative Ascorbic Acid UA Negative POC GLUCOSE TYPE AND SCREEN ABO GROUP O RH (D) TYPE Positive ANTIBODY SCREEN Negative RADIOLOGY: XR CHEST PA OR AP [address] CEREBRAL PERFUSION STDY W CONT CTA HEAD AND NECK W WO CONTRAST CT HEAD WO CONTRAST STROKE PROTOCOL XR CHEST PA OR AP 1 VW Radiologist Impression IMPRESSION: No active disease. DICTATION LOCATION: Location [address] [place] [address] CT CEREBRAL PERFUSION STDY W CONT Radiologist Impression IMPRESSION: Normal CT brain perfusion. DICTATION LOCATION: Location [address] [place] [address] CTA HEAD AND NECK W WO CONTRAST Radiologist Impression IMPRESSION: No major vessel intracranial arterial occlusion. DICTATION LOCATION: [address] HEAD WO CONTRAST STROKE PROTOCOL Radiologist Impression IMPRESSION: Normal. DICTATION LOCATION: Location [address] [place] [address] Pulse oximetry: Saturation: 97% Delivery: RA Interpretation: Not hypoxic Rhythm Strip: Normal sinus rhythm; No arrhythmia; Ventricular rate (bpm) 74 EKG: EKG per my interpretation: Normal sinus rhythm; Ventricular rate (bpm) 70 Normal RI and QT intervals No ST segment abnormalities PROCEDURES Procedures MEDICAL DECISION MAKING AND PLAN OF CARE (160) Patient activated as a code stroke and taken to CT upon arrival with stroke RN Missy and RN. (1649) Discussed with stroke RN Missy who states Dr. Méndez would like the patient to be admitted for workup. (173) Discussed with Dr. Coker, hospitalist, who agrees to admit patient. MDM--The results of the EKG, labs and CT head and CTA and perfusion were reviewed and discussed with the patient and consultants. She was seen in the ER by the stroke team. Her symptoms have resolvedand CT images without obvious CVA or major vessel occlusion. Possibly had TIA vs adverse reaction to chemotherapy of flu shot that she got earlier today. Will admit to stroke unit and complete strokeevaluation. Dr Rebolledo of neurology consulted. Differential diagnosis includes: 1. TIA 2. Adverse reaction to mediciation 3. Hypoglycemia Diagnosis; 1. TIA 2. Possible adverse reaction to chemotherapy medication or to flu shot Disposition--admit to stroke unit--observation Medications Administered During the ED Stay from 02/20/2018 1544 to 02/20/2018 1736 Date/Time Order Dose Route Action 02/20/2018 1646 sodium chloride 0.9% bolus solution 50 mL 0 mL IV Stopped 02/20/2018 1615 sodium chloride 0.9% bolus solution 50 mL 50 mL IV New Bag 02/20/2018 1618 iopamidol (ISOVUE-370) 76 % injection 130 mL 90 mL IV Contrast Given 02/20/2018 1636 iopamidol (ISOVUE-370) 76 % injection 40 mL 40 mL IV Contrast Given . New Prescriptions for this Encounter LAST VS BP: (!) 167/78 (10/18/18 1600), Heart Rate: 74 bpm (02/20/181599), Resp: 19 (02/20/181599), Temp:98.1 ??F (36.7 ??C) (02/20/181599), Temp src: Oral (02/20/181599), SpO2: 97 % (02/20/181599) CLINICAL IMPRESSION Final diagnoses: [Z86.73] History of TIA (transient ischemic attack) and stroke [T50.905A] Adverse effect of drug, initial encounter DISPOSITION, EDUCATION AND MEDICATION RECONCILIATION Medications reconciled. See after visit summary for patient education on discharged patients. ED Disposition ED Disposition Condition User Date/Time Comment Admit Stable Irvin Cho MD [facility] Feb 20, 2018 5:31 PM ATTESTATION STATEMENTS Yvonne Maguire, am serving as a scribe to document services personally performed by Irvin Miller MD, based upon my observations and the provider's statements to me. All documentation has beenreviewed by the aforementioned doctor prior to being entered into the official medical record. Electronically signed by: Chintan Diane Provider Attestation: Tammie Maguire Randall, MD, have reviewed the documentation as recorded by the scribe and it accurately reflects the work and decisions made by me. 02/20/2018 documented in this encounter Miscellaneous Notes * Care Plan - Galilea Cifuentes RN - 02/21/2018 6:22 PM CDT INTERDIS PW: TIA/STROKE, ISCHEMIC WITHOUT THROMBOLYSIS Pathway Day 1 ??? Hemodynamics: SBP less than 220 mmHg or greater than 110 mmHg and DBP less than 120 or greater than 60 mmHg; HR less than 110/min and greater than 50/min; Resp maintained at less than 24; Temp less than 100.4F (38C); O2 saturations greater than 94%. Met ??? Neurological: Patient at baseline neurological status with no signs or symptoms of neurologicaldeterioration (increased NIHSS of 4 points or greater; decreased level of consciousness; change in speech; facial droop; change in pupil reaction to light or change in pupil size; drift; headache; nausea or vomiting; any suspicion of increased ICP; new onset seizure activity). Met ??? Nutrition Management: Patient able to pass nursing swallowing screen or was evaluated by [employer] prior to any oral intake. Met ??? Activity/Rehab: Patient able to participate in initial evaluation to correlate with pre-stroke level of function. Met ??? Patient Education: Patient and/or healthcare delegate verbalizes understanding of stroke diagnosis, including diagnostic tests. Met ??? Discharge Planning: Discharge needs are identified and/or screening assessments completed with patient and/or healthcare delegate.(Consider NIHSS as an early predictor of dispostion: patients with scores less than or equal to 5 can be expected to return home, those with scores 6-13 most often require acute rehabilitation services, and those with scores greater than 13 most often go to a nursing facility). Met [facility]: Adult and Obstetrics Day 1 ??? Patient, family, or healthcare designee is participating in individual care plan process Met ??? Patient, family, or healthcare designee understands side effects of medications Met [facility]: Adult and Obstetrics Day 1 ??? Patient, family, or healthcare designee is participating in individual care plan process Met ??? Patient, family, or healthcare designee understands side effects of medications Met Cognitive/Perceptual/Neuro ??? Achieve optimal cognitive/perceptual/neurological function by discharge or maintain baseline function Progressing Discharge Planning ??? Identify discharge needs upon admission and through discharge Progressing Infection Risk/Actual ??? Infection Risk/Actual: Infection prevention, control, or resolution by discharge Progressing Pain, Potential/Actual ??? Verbalizes/displays acceptable comfort level or baseline comfort level Progressing Safety/Fall ??? Safety/Fall: Absence of fall, injury, harm during hospitalization Progressing * Care Plan - Galilea Cifuentes RN - 02/21/2018 4:44 PM CDT 0700-Report received from Cristy FREEMAN. Pt in bed, no complaints or distress noted. 09-Assessment complete and meds passed per JUL. Pt in bed, no complaints or distress noted. 1248-PRN Valium given 1310-PT to MRI 1540-Pt returned from MRI and Echo 1610-Tele monitor removed 1625-Port deaccessed by Janel MACKENZIE. Prescriptions delivered. 1640-D/c paperwork signed and all questions answered. Waiting on ride 1710-In room to check on patient, pt states that face feels warm and that BP was elevated when checked earlier. When BP were checked by this RN, BP was noted to be 198/85. Doctor Bruce made aware. 172-One time dose of Catapres given. 174-Doctor Bruce would like pt to stay until 1830 to make sure that blood pressure has lowered enough. Pt aware, family at bedside 1815-Pt's BP improved. Able to d/c when Norvasc is delivered 1830-prescriptions delivered. Pt escorted out by family members * Care Plan - Aleah Coley RN - 02/21/2018 3:17 PM CDT Clinical documentation reviewed. Comprehensive Discharge Planning Risk Assessment was completed. Readmission Risk (patient becomes high risk with a score of 8 or greater) 3 Total Score 3 Breast Cancer Total Score of 9 or below does not identify immediate needs for discharge. Age Score: 4 Disability Score: 0 Prior Living Status Score: {0 Mobility Limitation Score: 0 TOTAL SCORE: [address] consult if needs for discharge are identified. Care Management will continue to follow for discharge planning. [facility]: Adult and Obstetrics Day 1 ??? Patient, family, or healthcare designee is participating in individual care plan process Met Discharge Planning ??? Identify discharge needs upon admission and through discharge Progressing * Therapy Evaluation - Lavonne Rowe, Occupational Therapist - 02/21/2018 11:23 AM CDT Occupational Therapy order received, chart reviewed, and evaluation completed. Please see full evaluation below for details. Daily OT notes will be located in Care Plan notes. Thank You. Occupational Therapy Evaluation Patient: Aleah Gerber Date of : 1955 OT Evaluation Time OT Evaluation Start Time: 1110 (02/21/18 1100) OT Evaluation Stop Time: 1121 (02/21/18 1100) OT Evaluation Total Minutes: 11 (02/21/18 1100) Past Medical History: Diagnosis Date ??? Anxiety ??? Breast cancer ??? COPD (chronic obstructive pulmonary disease) ??? Depression ??? GERD (gastroesophageal reflux disease) d/t chemo ??? Malignant tumor of colon ??? Sleep apnea does not use cpap Past Surgical History: Procedure Laterality Date ??? HX BLADDER REPAIR ??? HX BREAST LUMPECTOMY FOR CANCER Left 01/2018 ??? HX COLON SURGERY 12/2017 colon resection ??? HX HERNIA REPAIR 1974 ??? HX TUBAL LIGATION Subjective Subjective: agreed to OT assessment Pain Level: Patient reports 0/10 pain. Prior Level Information Type of home: private residence Living Situation: Prior level of function: indep with mobility, self care, homemaking, works from home Objective: Cognition: Ox4 Level of alertness: alert/responsive Command follow: Follows commands appropriately Safety judgment: intact Aphasia: expressive Memory: intact Attention span: Intact Sequencing: Intact Executive function: intact Vision Current vision/visual history: no changes Visual Simmons: intact Acuity: Able to read clock/calendar on wall without difficulty Tracking: intact Proprioception/perception: Proprioception: intact Inattention/neglect: appears intact Initiation:appears intact Motor planning: Appears intact Sensation: Right sensation Light touch: Intact Deep pressure: Intact Stereognosis: Intact Left sensation Light touch: Intact Deep pressure: Intact Stereognosis: Intact UE ROM: WFL Muscle Tone: WFL UE Strength: WFL Coordination: WFL , right slightly slower than left. Pt has to focus on task with right hand Hand Dominant: right Sensation: intact FUNCTIONAL ACTIVITIES ASSESSMENT: ADLs Feeding: Independent Grooming: Independent UE Dressing: Independent LE Dressing: Independent Bathing: Independent Toileting: Independent Functional Mobility Rolling: Independent Supine to sit: Independent Sit to stand: Independent Toilet Transfer: Independent Chair/ ReclinerTransfer: Independent Functional Room Mobility: Ambulation to bathroom Independent Sitting balance: good Standing balance: good Assessment Assessment: Prior level of function Rehab potential/ prognosis: good Clinical Presentation: Stable and/or uncomplicated EVALUATION COMPLEXITY: Low Complexity *These findings are based on patient's self-reporting, therapist's objective findings and professional determinations. Recommendation: Safe to discharge home Recommendations were made on today's assessment. Additional recommendations will be based on patient's progress in therapy. Plan Treatment: OT to see patient for: assessment only OT frequency: Therapy Plan of Care: (assessment only) (02/21/18 1100) Patient involved in goal setting: yes Patient goals documented in the multidisciplinary care plan. End of session: Chair/bed alarm in place and activated: no, not needed Call light within reach: yes Patient will continue with above plan of care unless discharged or has change in status. Plan of care developed as indicated by initial assessment and patient???s current status. Lavonne Rowe OT ascom [phone] * Care Plan - Cristy Cosby RN - 02/21/2018 5:24 AM CDT 1950 - Admission questions completed. Pt eating in bed. 2140 - Lab collected. Pt assisted to bathroom, steady gait. Pt denies dizziness anymore, refuses bed alarm, states she will call if she needs help. 0000 - Report received from LYDIA Ackerman. 0230 - Pt in bed, eyes closed, quiet. 0330 - Pt in bed, eyes closed, quiet. 0500 - Pt walking nicholson. 0705 - Report given to LYDIA Calero. Pt in bed. No s/s of distress. 0800 - Lab collected. Pt states she needs PO valium 1 hour before and another 15 mins before MRI. Galilea updated. * Care Plan - Meka Gaona RN - 02/21/2018 12:25 AM CDT Day 1 ??? Patient, family, or healthcare designee is participating in individual care plan process Met ??? Patient, family, or healthcare designee understands side effects of medications Met Pain, Potential/Actual ??? Verbalizes/displays acceptable comfort level or baseline comfort level Progressing Safety/Fall ??? Safety/Fall: Absence of fall, injury, harm during hospitalization Progressing Discharge Planning ??? Identify discharge needs upon admission and through discharge Progressing See end of shift note * Care Plan - Meka Gaona RN - 02/20/2018 7:41 PM CDT 1930 Report received from Galilea, patient in the room, Cristy FREEMAN at bedside doing admission 2210 Assessment completed, scheduled medication given, denies any needs, call light within reach 0015 Report given to Cristy FREEMAN * Care Plan - Galilea Cifuentes RN - 02/20/2018 7:28 PM CDT 183-Report received from Saloni CORRAL 1900-Report given to Meka FREEMAN * Treatment Plan - Cristy Cosby RN - 02/20/2018 7:27 PM CDT Adult IV Flush Protocol [facility] ORDERS ARE ENTERED ???PER PROTOCOL?? Enter the protocol in the patient???s electronic health record using [employer]: .adultivflushprotocol Nursing Orders ??? Place Peripheral IV or access IV port for medication administration. (Ok to use existing central venous access (ex: Implanted Port, PICC) unless otherwise directed by provider.) (Exclusion: Hemodialysis line may not be accessed without order from provider) Local Anesthetic for IV Initiation Panel (18 and over) ORDER SET Local Anesthetic for use to initiate IV (orders to discontinue 24 hours from initiation) ??? Lidocaine 1% 0.3 mL intradermal ONE TIME to numb area of IV catheter insertion or port access PRN ??? Lidocaine 4% (L.M.X.4) applied topically ONE TIME 15 minutes prior to IV catheter insertion PRN Peripheral IV (Peripheral and Midline catheter) Flush Panel (18 yr and over) ORDER SET ??? Line care and maintenance o Sodium chloride 0.9% (normal saline) flush 5mL every 12 hours when locked o Sodium chloride 0.9% (normal saline) flush 5mL PRN before and after medication administration or to verify line patency ??? Carrier fluid (select most appropriate fluid for capability with medications) o Sodium chloride 0.9% (normal saline) 250 mL carrier bag. - Infuse 25 mL at a rate of IVPB administration to flush as needed to complete the IVPB and/or may keep rate at KVO (10mL/hr) to minimize frequent line interruption. o Dextrose 5% (D5W) 250 mL carrier bag - Infuse 25 mL at a rate of IVPB administration to flush as needed to complete the IVPB and/or may keep rate at KVO (10mL/hr) to minimize frequent line interruption. Central Lines (PICC, CVC, Implanted Port, Sheath/Introducer, 3rd Lumen of Hemodialysis catheter) Flush Panel (18 yr and over) ??? Line care and maintenance o Sodium chloride 0.9% (normal saline) flush 10mL per lumen AND Heparin 10 units/mL 5mL per lumen every 12 hours o Sodium chloride 0.9% (normal saline) flush 10mL per lumen before and after medication administration or to verify line patency AND Heparin 10units/mL 5 mL per lumen to lock ??? Carrier fluid (select most appropriate fluid for capability with medications) o Sodium chloride 0.9% (normal saline) 250 mL carrier bag. - Infuse 25 mL at a rate of IVPB administration to flush as needed to complete the IVPB and/or may keep rate at KVO (10mL/hr) to minimize frequent line interruption. o Dextrose 5% (D5W) 250 mL carrier bag - Infuse 25 mL at a rate of IVPB administration to flush as needed to complete the IVPB and/or may keep rate at KVO (10mL/hr) to minimize frequent line interruption. Transducers-Hemodynamic Pressure Monitoring ??? Arterial Catheter, Pulmonary Artery Catheter, Central Venous Pressure, Intra-Aortic Balloon Pump Sodium chloride 0.9% (normal saline) to infuse continuously at 3mL/hr via pressure bag at 300 mmHgIntra-Aortic Balloon Pump ??? Heparin 2 unit/mL in normal saline to infuse continuously at 3 mL/hr via pressure bag at 300mmhg Adult (ONCOLOGY) ??? Alteplase (CATHFLO) Instill 2mg to affected lumen(s) to dwell in occluded lumen one time Initiating Department(s): Date: 12/2017 Department: Nursing Reviewed: Revised: Approved by: YAN Medina Date: 12/27/2017 Approved by: Medical Executive Committee Date: Approved by: Pharmacy & Therapeutics Committee Date: 12/12/2017 documented in this encounter Plan of Treatment Not on file documented as of this encounter Procedures Procedure Name Priority Date/Time Associated Diagnosis Comments TELEMETRY REPORT 03/03/2018 12:2 5 PM CDT ECHOCARDIOGRAM W/ CONTRAST AGENT Routine 02/21/2018 3:20 PM CDT MRI BRAIN WO CONTRAST Routine 02/21/2018 2:43 PM CDT LIPID PANEL Routine 02/21/2018 8:01 AM CDT POC GLUCOSE Routine 02/21/2018 6:16 AM CDT POC GLUCOSE Routine 02/20/2018 11:55 PM CDT EKG 12-LEAD Routine 02/20/2018 9:56 PM CDT HEMOGLOBIN A1C Routine 02/20/2018 9:38 PM CDT FISH EGG PACKER EVALUATE AND TREAT Routine 8 8:52 PM CDT OT EVAL AND TREAT Routine 02/20/2018 8:5 2 PM CDT PT EVAL AND TREAT Routine 02/20/2018 8:5 2 PM CDT XR CHEST PA OR AP 1 VW Stat 8 5:02 PM CDT URINALYSIS WITH REFLEX CULTURE Stat 02/20/2018 4:[address] CEREBRAL PERFUSION STDY W CONT Stat 02/20/2018 4:33 PM CDT POC CREATININE Stat 02/20/2018 4:18 PM CDT CTA HEAD AND NECK W AND/OR WO CONTRAST Stat 02/20/2018 4:17 PM CDT EKG 12-LEAD Stat 02/20/2018 4:02 PM CDT CBC WITH DIFFERENTIAL Stat 02/20/2018 4:00 PM CDT PTT Stat 02/20/2018 4:00 PM CDT SEDIMENTATION RATE Stat 02/20/2018 4: 00 PM CDT PROTIME-INR Stat 02/20/2018 4:00 PM CDT TYPE AND SCREEN Stat 02/20/2018 4:00 PM CDT COMPREHENSIVE METABOLIC PANEL Stat 02/20/2018 4:[address] HEAD WO CONTRAST STROKE PROTOCOL Stat 02/20/2018 3:56 PM CDT OXYGEN VIA DEVICE TO KEEP O2 SAT ABOVE Stat 02/20/2018 3:46 PM CDT documented in this encounter Results * TELEMETRY REPORT (03/03/2018 12:25 PM CDT) Provider Scanning ECG ORDERABLES * ECHOCARDIOGRAM W/ CONTRAST AGENT (02/21/2018 3:20 PM CDT) 02/21/2018 Narrative INTERFACE SYSTEM - 02/21/2018 3:28 PM CDT [place] [id number] Transthoracic Echocardiogram Name: ALEAH GERBER MR #: [id number] Room #: [id number] Age: 62 years Study date: 21-Feb-2018 Gender: Female Weight: 254.5 lb Height: 69 in Reading Physician: ??Ktity Romero MD Referring Physician: ??Paulo Coker, DO Account Resolution Specialist: ??Lyssa Nunes BS RDCS RN: ??Nelia Reyes RN REASON FOR STUDY: cva Diagnoses: I63.30 - Cerebral infarction due to thrombosis of unspecified cerebral artery HISTORY: PRIOR HISTORY: rosaura, copd Risk factors: morbid obesity, a former history of cigarette use (quitting more than one month ago), and age (men over 55, women over 65). PROCEDURE: The procedure was performed in the echo lab. This was a routine study. ?? - ??The transthoracic approach was used. - ??The study included complete 2D imaging, M-mode, complete spectral Doppler, and color Doppler. The heart rate was 70 bpm, at the start of the study. Systolic blood pressure was 150 mmHg, at the start of the study. Diastolic blood pressure was 66 mmHg, at the start of the study. Images were obtained from the parasternal, apical, subcostal, and suprasternal notch acoustic windows. Intravenous contrast (agitated saline) was administered to evaluate possible R-L intracardiac shunting. Intravenous contrast (Definity, 2 ml) was administered to opacify the left ventricle and enhance Doppler signals. Echocardiographic views were limited by restricted patient mobility, poor acoustic window availability, and patient obesity. This was a technically difficult study. SUMMARY: - ??Left ventricle: Systolic function was normal. Ejection fraction was estimated in the range of 60 % to 65 %. There were no regional wall motion abnormalities. - ??Mitral valve: There was trivial regurgitation. - ??Atrial septum: Contrast injection was performed. There was no ubvok-qe-pnrb shunt, with provocative maneuvers to increase right atrial pressure. LEFT VENTRICLE: Size was normal. Systolic function was normal. Ejection fraction was estimated in the range of 60 % to 65 %. There were no regional wall motion abnormalities. Wall thickness was normal. AORTIC VALVE: The valve was trileaflet. Leaflets exhibited normal thickness and normal cuspal separation. DOPPLER: Transaortic velocity was within the normal range. There was no evidence for stenosis. There was no regurgitation. AORTA: The root exhibited normal size. MITRAL VALVE: Valve structure was normal. There was normal leaflet separation. DOPPLER: The transmitral velocity was within the normal range. There was no evidence for stenosis. There was trivial regurgitation. LEFT ATRIUM: Size was normal. ATRIAL SEPTUM: Contrast injection was performed. There was no lgwee-oa-nsrj shunt, with provocative maneuvers to increase right atrial pressure. RIGHT VENTRICLE: The size was normal. Systolic function was normal. There were no regional wall motion abnormalities. Wall thickness was normal. PULMONIC VALVE: Leaflets exhibited normal thickness, no calcification, and normal cuspal separation. DOPPLER: The transpulmonic velocity was within the normal range. There was no regurgitation. PULMONARY ARTERY: The size was normal. DOPPLER: Systolic pressure was within the normal range. TRICUSPID VALVE: The valve structure was normal. There was normal leaflet separation. DOPPLER: The transtricuspid velocity was within the normal range. There was no evidence for stenosis. There was trivial regurgitation. RIGHT ATRIUM: Size was normal. SYSTEMIC VEINS: IVC: The inferior vena cava was normal in size. PERICARDIUM: There was no pericardial effusion. The pericardium was normal in appearance. SYSTEM MEASUREMENT TABLES 2D mode LA Dimension (2D): 3.8 cm NORMAL RANGE:1.9-4 cm Left Atrium Systolic Volume Index; Method of Disks, Biplane; 2D mode;: 17.6 ml/m2 IVSd (2D): 1.1 cm IVSs (2D): 1.4 cm LVIDd (2D): 4.6 cm LVIDs (2D): 2.9 cm LVPWd (2D): 1 cm LVPWs (2D): 1.4 cm Left Ventricular Ejection Fraction; Teichholz; 2D mode;: 66.9 % Apical four chamber Left Atrium Systolic Volume Index; Method of Disks, Single Plane; 2D mode; Apical four chamber;: 17.1 ml/m2 EF (A4C): 65.5 % NORMAL RANGE:55-65 % Right Atrium MOD Diam; Most recent value chosen; Method of Disks, Single Plane; End Systole; 2D mode; Apical four chamber;: 1.22 cm Right Atrium Systolic Volume Index; Method of Disks, Single Plane; End Systole; 2D mode; Apical four chamber;: 20.7 ml/m2 Major Houston; 2D mode; Apical four chamber;: 9.1 cm NORMAL RANGE:5.6-8.6 cm Right Ventricle Basal Diameter; 2D mode; Apical four chamber;: 4.1 cm NORMAL RANGE:2.5-4.1 cm Right Ventricle Mid Cavity Diameter; 2D mode; Apical four chamber;: 3 cm NORMAL RANGE:2-3.5 cm Apical two chamber Left Atrium Systolic Volume Index; Method of Disks, Single Plane; 2D mode; Apical two chamber;: 18.1 ml/m2 EF (A2C): 64.2 % M mode Tricuspid Annular Plane Systolic Excursion; Tricuspid Annulus; M mode;: 2.19 cm NORMAL RANGE:>1.7 cm Tissue Doppler Imaging LV Peak Early Crespo Tissue Per; Lateral MA (TDI): 8.38 cm/s LV Peak Early Crespo Tissue Per; Medial MA (TDI): 7.07 cm/s Right Ventricle S Velocity; Tissue Doppler Imaging;: 14.6 cm/s NORMAL RANGE:>9.5 cm/s Unspecified Scan Mode Aortic Valve Velocity Ratio;: 0.64 CV Orifice Area; Cont Eq by VTI: 2.29 cm2 CV Orifice Area; Cont Eq by Peak Per: 2.21 cm2 Mean Grad; Mean value; Antegrade Flow: 7 mm[Hg] Mean Gradient; Antegrade Flow;: 7 mm[Hg] Peak Grad; Mean; Antegrade Flow: 12 mm[Hg] VTI; Antegrade Flow: 42.8 cm VTI; Mean; Antegrade Flow: 42.8 cm Vmax; Antegrade Flow: 171 cm/s IVRT: 95 ms LVOT Diam: 2.1 cm LVOT VTI: 28.3 cm LVOT Vmax: 109 cm/s SV (LVOT): 98 ml DT; Antegrade Flow: 246 ms MV E/A: 0.8 MV Peak A Per: 115 cm/s MV Peak A Per; Mean: 115 cm/s MV Peak E Per; Antegrade Flow: 94.6 cm/s MV Peak E Per; Mean; Antegrade Flow: 94.6 cm/s MVA (PHT): 3.06 cm2 PHT: 72 ms Pulm A Revs Dur: 137 ms Pulm A Revs Peak Per: 30.6 cm/s Pulm Crespo Peak Per: 40.3 cm/s Pulm S/D: 1.7 Pulm Sys Peak Per: 68.7 cm/s Accel Time; Antegrade Flow: 81 ms Peak Grad; Mean; Antegrade Flow: 7 mm[Hg] Vmax; Antegrade Flow: 130 cm/s TV Peak E Per; Antegrade Flow: 50.9 cm/s Prepared and signed by Kitty Romero MD Signed 21-Feb-2018 15:27:59 Procedure Note Kitty Romero MD - 02/21/2018 [place] [address] Transthoracic Echocardiogram Name: ALEAH GERBER MR #: [id number] Room #: [id number] Age: 62 years Study date: 21-Feb-2018 Gender: Female Weight: 254.5 lb Height: 69 in Reading Physician: Kitty Romero MD Referring Physician: Paulo Coker DO Account Resolution Specialist: Lyssa YU RDCS RN: Nelia Reyes RN REASON FOR STUDY: cva Diagnoses: I63.30 - Cerebral infarction due to thrombosis of unspecified cerebral artery HISTORY: PRIOR HISTORY: rosaura, copd Risk factors: morbid obesity, a former history of cigarette use (quitting more than one month ago), and age (menover 55, women over 65). PROCEDURE: The procedure was performed in the echo lab. This was aroutine study. - The transthoracic approach was used. - The study includedcomplete 2D imaging, M-mode, complete spectral Doppler, and color Doppler. Theheart rate was 70 bpm, at the start of the study. Systolic blood pressure fiv592 mmHg, at the start of the study. Diastolic blood pressure was 66 mmHg, atthe start of the study. Images were obtained from the parasternal, apical, subcostal, and suprasternal notch acoustic windows. Intravenous contrast (agitated saline) was administered to evaluate possible R-L intracardiac shunting. Intravenous contrast (Definity, 2 ml) was administered toopacify the left ventricle and enhance Doppler signals. Echocardiographic views were limited by restricted patient mobility, poor acoustic window availability,and patient obesity. This was a technically difficult study. SUMMARY: - Left ventricle: Systolic function was normal. Ejection fraction was estimated in the range of 60 % to 65 %. There were no regional wallmotion abnormalities. - Mitral valve: There was trivial regurgitation. - Atrial septum: Contrast injection was performed. There was dobsngr-ml-stvh shunt, with provocative maneuvers to increase right atrial pressure. LEFT VENTRICLE: Size was normal. Systolic function was normal. Ejection fraction was estimated in the range of 60 % to 65 %. There were noregional wall motion abnormalities. Wall thickness was normal. AORTIC VALVE: The valve was trileaflet. Leaflets exhibited normalthickness and normal cuspal separation. DOPPLER: Transaortic velocity was within thenormal range. There was no evidence for stenosis. There was no regurgitation. AORTA: The root exhibited normal size. MITRAL VALVE: Valve structure was normal. There was normal leafletseparation. DOPPLER: The transmitral velocity was within the normal range. There wasno evidence for stenosis. There was trivial regurgitation. LEFT ATRIUM: Size was normal. ATRIAL SEPTUM: Contrast injection was performed. There was itjosce-nx-xlif shunt, with provocative maneuvers to increase right atrial pressure. RIGHT VENTRICLE: The size was normal. Systolic function was normal. Therewere no regional wall motion abnormalities. Wall thickness was normal. PULMONIC VALVE: Leaflets exhibited normal thickness, no calcification,and normal cuspal separation. DOPPLER: The transpulmonic velocity was withinthe normal range. There was no regurgitation. PULMONARY ARTERY: The size was normal. DOPPLER: Systolic pressure waswithin the normal range. TRICUSPID VALVE: The valve structure was normal. There was normalleaflet separation. DOPPLER: The transtricuspid velocity was within the normalrange. There was no evidence for stenosis. There was trivial regurgitation. RIGHT ATRIUM: Size was normal. SYSTEMIC VEINS: IVC: The inferior vena cava was normal in size. PERICARDIUM: There was no pericardial effusion. The pericardium was normalin appearance. SYSTEM MEASUREMENT TABLES 2D mode LA Dimension (2D): 3.8 cm NORMAL RANGE:1.9-4 cm Left Atrium Systolic Volume Index; Method of Disks, Biplane; 2D mode;:17.6 ml/m2 IVSd (2D): 1.1 cm IVSs (2D): 1.4 cm LVIDd (2D): 4.6 cm LVIDs (2D): 2.9 cm LVPWd (2D): 1 cm LVPWs (2D): 1.4 cm Left Ventricular Ejection Fraction; Teichholz; 2D mode;: 66.9 % Apical four chamber Left Atrium Systolic Volume Index; Method of Disks, Single Plane; 2Dmode; Apical four chamber;: 17.1 ml/m2 EF (A4C): 65.5 % NORMAL RANGE:55-65 % Right Atrium MOD Diam; Most recent value chosen; Method of Disks, SinglePlane; End Systole; 2D mode; Apical four chamber;: 1.22 cm Right AtriumSystolic Volume Index; Method of Disks, Single Plane; End Systole; 2D mode; Apicalfour chamber;: 20.7 ml/m2 Major Houston; 2D mode; Apical four chamber;: 9.1 cm NORMAL RANGE:5.6-8.6cm Right Ventricle Basal Diameter; 2D mode; Apical four chamber;: 4.1 cmNORMAL RANGE:2.5-4.1 cm Right Ventricle Mid Cavity Diameter; 2D mode; Apicalfour chamber;: 3 cm NORMAL RANGE:2-3.5 cm Apical two chamber Left Atrium Systolic Volume Index; Method of Disks, Single Plane; 2Dmode; Apical two chamber;: 18.1 ml/m2 EF (A2C): 64.2 % M mode Tricuspid Annular Plane Systolic Excursion; Tricuspid Annulus; M mode;:2.19 cm NORMAL RANGE:>1.7 cm Tissue Doppler Imaging LV Peak Early Crespo Tissue Per; Lateral MA (TDI): 8.38 cm/s LV Peak Early Crespo Tissue Per; Medial MA (TDI): 7.07 cm/s Right Ventricle S Velocity; Tissue Doppler Imaging;: 14.6 cm/s NORMAL RANGE:>9.5 cm/s Unspecified Scan Mode Aortic Valve Velocity Ratio;: 0.64 CV Orifice Area; Cont Eq by VTI: 2.29 cm2 CV Orifice Area; Cont Eq by Peak Per: 2.21 cm2 Mean Grad; Mean value; Antegrade Flow: 7 mm[Hg] Mean Gradient; Antegrade Flow;: 7 mm[Hg] Peak Grad; Mean; Antegrade Flow: 12 mm[Hg] VTI; Antegrade Flow: 42.8 cm VTI; Mean; Antegrade Flow: 42.8 cm Vmax; Antegrade Flow: 171 cm/s IVRT: 95 ms LVOT Diam: 2.1 cm LVOT VTI: 28.3 cm LVOT Vmax: 109 cm/s SV (LVOT): 98 ml DT; Antegrade Flow: 246 ms MV E/A: 0.8 MV Peak A Per: 115 cm/s MV Peak A Per; Mean: 115 cm/s MV Peak E Per; Antegrade Flow: 94.6 cm/s MV Peak E Per; Mean; Antegrade Flow: 94.6 cm/s MVA (PHT): 3.06 cm2 PHT: 72 ms Pulm A Revs Dur: 137 ms Pulm A Revs Peak Per: 30.6 cm/s Pulm Crespo Peak Per: 40.3 cm/s Pulm S/D: 1.7 Pulm Sys Peak Per: 68.7 cm/s Accel Time; Antegrade Flow: 81 ms Peak Grad; Mean; Antegrade Flow: 7 mm[Hg] Vmax; Antegrade Flow: 130 cm/s TV Peak E Per; Antegrade Flow: 50.9 cm/s Prepared and signed by Kitty Romero MD Signed 21-Feb-2018 15:27:59 Paulo Coker DO US ORDERABLES INTERFACE SYSTEM Refer to clinic/hospital department * MRI BRAIN WO CONTRAST (02/21/2018 2:43 PM CDT) Anatomical Region Laterality Modality Head Magnetic Resonan ce 02/21/2018 2:45 PM CDT Impressions 02/21/2018 4:06 PM CDT IMPRESSION: Scattered foci of T2 hyperintensity from chronic white matter infarct. DICTATION LOCATION: Location [address] [place] [address] Narrative 02/21/2018 4:06 PM CDT MRI BRAIN WO CONTRAST DATE: ??02/21/2018 2:43 PM HISTORY: New onset right-sided weakness and slurred speech after chemotherapy. Colon and breast cancer. TECHNIQUE: Multiplanar imaging of the brain without contrast. FINDINGS: There are scattered small foci of T2 hyperintensity throughout the deep white matter as a result of chronic infarct. No acute lesions are present. There is no hemorrhage, mass or mass effect. Ventricles and cortical sulci have a normal appearance. Procedure Note Marv Xavier MD - 02/21/2018 MRI BRAIN WO CONTRAST DATE: 02/21/2018 2:43 PM HISTORY: New onset right-sided weakness and slurred speech after chemotherapy. Colon and breast cancer. TECHNIQUE: Multiplanar imaging of the brain without contrast. FINDINGS: There are scattered small foci of T2 hyperintensity throughout the deep white matter as a result of chronic infarct. No acute lesions are present. There is no hemorrhage, mass or mass effect. Ventricles and cortical sulci have a normal appearance. IMPRESSION: Scattered foci of T2 hyperintensity from chronic white matter infarct. DICTATION LOCATION: Location [address] [place] [address] Paulo Delaney Sheela FRANCO MR ORDERABLES * (ABNORMAL) LIPID PANEL (02/21/2018 8:01 AM CDT) CHOLESTEROL 216(H) <200 mg/dL 02/21/2018 8:47 AM [facility] [place]IGLYCERIDE 145 <150 mg/dL 02/21/2018 8:47 AM T [facility] HDL 51(L) >57 mg/dL 02/21/2018 8:47 AM [facility] [place] LDL CALCULATED 136(H) <100 mg/dL 02/21/2018 8:47 AM [facility] [place] NON-HDL CHOLESTEROL 165(H) <130 mg/dL 02/21/2018 8:47 AM T [facility] Blood Venipuncture / Unknown 02/21/2018 8:01 AM CDT 02/21/2018 8:04 AM CDT [facility] - 02/21/2018 8:47 AM CDT TOTAL CHOLESTEROL ??mg/dL ??Desirable <200 ??Borderline high 200-239 ??High >=240 TRIGLYCERIDES ??mg/dL ??Normal <150 ??Borderline high 150-199 ??High 200-499 ??Very high >=500 HDL CHOLESTEROL ??mg/dL ??Low <40 ??Normal 40-59 ??Desirable >=60 NON HDL CHOLESTEROL mg/dL ??Optimal <130 ??Near Optimal 130-159 ??Borderline High 160-189 ??Very High >=190 Calculated LDL mg/dL ??Optimal <100 ??Near Optimal 100-129 ??Borderline High 130-159 ??High 160-189 ??Very High >=190 ATPIII Guidelines Reference Ranges for Lipid Panels (NCEP/AMA) Paulo Coker DO CHEMISTRY ORDERABLES [facility] CLIA# [id number] [place] [address] * (ABNORMAL) POC GLUCOSE (02/21/2018 6:16 AM CDT) GLUCOSE POC 263(H) 74 - 99 mg/dL 02/21/2018 6:16 AM CDT [facility] POINT OF CARE [employer]ER NAME JAMIR RUIZ 02/21/2018 6:16 AM CDT [facility] POINT OF CARE Whole blood specimen (specimen) 02/21/2018 6:16 AM CDT 02/21/2018 6:16 AM CDT Víctor Conde MD POINT OF CARE TESTIN Romero Performing Organization Address [facility] Co or Phone Number [facility] POINT OF CARE CLIA # [id number] [place] [address] * (ABNORMAL) POC GLUCOSE (02/20/2018 11:55 PM CDT) GLUCOSE POC 286(H) 74 - 99 mg/dL 02/20/2018 11:55 PM CDT [facility] POINT OF CARE [employer] NAME JAMIR RUIZ 02/20/2018 11:55 PM CDT [facility] POINT OF CARE Whole blood specimen (specimen) 02/20/2018 11:55 PM CDT 02/20/2018 11:55 PM CDT Víctor Conde MD POINT OF CARE TESTIN Romero Performing Organization Address [facility] Phone Number [facility] POINT OF CARE CLIA # [id number] [place] [address] * EKG 12-LEAD (02/20/2018 9:56 PM CDT) VENTRICULAR RATE 78 BPM INTERFACE SYSTEM ATRIAL RATE 78 BPM INTERFAC E SYSTEM P-R INTERVAL 186 ms INTERFA CE SYSTEM QRS DURATION 94 ms INTERFA CE SYSTEM Q-T INTERVAL 364 ms INTERFA CE SYSTEM QTC CALCULATION(BEZ ET) 414 ms INTERFACE SYSTEM P AXIS 52 degrees INTERFACE SYSTEM R AXIS -12 degrees INTERFACE SYSTEM T AXIS 49 degrees INTERFACE SYSTEM RESULT Normal sinus rhythm Normal ECG When compared with ECG of 20-FEB-2018 16:02, No significant change was found Confirmed by HUGO PEREIRA MD (9) on 02/21/2018 7:36:44 AM INTERFACE SYSTEM 02/20/2018 9:56 PM CDT 02/21/2018 7:36 AM CDT Paulo Coker DO ECG ORDERABLES INTERFACE SYSTEM Refer to clinic/hospital department * (ABNORMAL) HEMOGLOBIN A1C (02/20/2018 9:38 PM CDT) HEMOGLOBIN A1C 6.4(H) <=6.1 % 02/20/2018 9:57 PM CDT [facility] [email or web address] [facility] EST. AVG GLUCOSE, A1C 137 mg/dL 02/20/2018 9:57 PM CDT [facility] Blood Venipuncture / Unknown 02/20/2018 9:38 PM CDT 02/20/2018 9:38 PM CDT Narrative [facility] [email or web address] [facility] - 02/20/2018 9:57 PM CDT HGB A1C INTERPRETATION NORMAL: ? <5.7% PRE-DIABETES: 5.7 - 6.4% DIABETES: ? 6.5% OR GREATER Paulo Coker DO CHEMISTRY ORDERABLES Performing Organization Address [facility] Co de Phone Number [facility] CLIA# [id number] [place] [address] * XR CHEST PA OR AP 1 VW (02/20/2018 5:02 PM CDT) Anatomical Region Laterality Modality Chest Computed Radiogr aphy 02/20/2018 5:04 PM CDT Impressions 02/20/2018 5:16 PM CDT IMPRESSION: No active disease. DICTATION LOCATION: Location - [facility] Narrative 02/20/2018 5:16 PM CDT XR CHEST PA OR AP 1 VW DATE: 02/20/2018 5:02 PM HISTORY: Colon cancer. Right side weakness and slurred speech.. FINDINGS: AP portable ??upright ??view of the chest. The lungs are clear. The heart and mediastinum is within normal limits. There is a Port-A-Cath with its tip at the cavoatrial junction. Procedure Note Marv Xavier MD - 02/20/2018 XR CHEST PA OR AP 1 VW DATE: 02/20/2018 5:02 PM HISTORY: Colon cancer. Right side weakness and slurred speech.. FINDINGS: AP portable upright view of the chest. The lungs are clear. The heart and mediastinum is within normal limits. There is a Port-A-Cath with its tip at the cavoatrial junction. IMPRESSION: No active disease. DICTATION LOCATION: Location [address] [place] [address] Irvin Cho MD DIAGNOSTIC IMAGING O RDERABLES * URINALYSIS WITH REFLEX CULTURE (02/20/2018 4:48 PM CDT) COLOR UA Pale Yellow Pale to Dark Yellow 02/20/2018 5:06 PM CDT [facility] CLARITY UA Clear Clear 02/20/2018 5:06 PM CDT [facility] SPECIFIC GRAVITY UA 1.014 1.003 - 1.035 02/20/2018 5:06 PM CDT [facility] LABORATORY [facility] PH UA 5.0 5.0 - 8.0 02/20/2018 5:06 PM CDT [facility] LEUKOCYTE ESTERASE UA Negative Negative 02/20/2018 5:06 PM CDT [facility] NITRITE UA Negative Negative 02/20/2018 5:06 PM CDT [facility] PROTEIN UA Negative Negative 02/20/2018 5:06 PM CDT [facility] GLUCOSE UA Negative Negative 02/20/2018 5:06 PM CDT [facility] KETONES UA Negative Negative 02/20/2018 5:06 PM CDT [facility] UROBILINOGEN UA Normal <2.0 mg/dL 8 5:06 PM CDT [facility] BILIRUBIN UA Negative Negative 02/20/2018 5:06 PM CDT [facility] BLOOD UA Negative Negative 02/20/2018 5:06 PM CDT [facility] Ascorbic Acid UA Negative Negative 02/21/20 18 5:06 PM CDT [facility] Urine URINE SPECIMEN OBTAINED BY CLEAN CATCH PROCEDURE / Unknown Collection / Unknown 02/20/2018 4:48 PM CDT 02/20/2018 4:59 PM CDT Irvin Cho MD URINE ORDERABLES [facility] LABORATORY SERVICES - [facility] CLIA# [id number] [place] [address] * CT CEREBRAL PERFUSION STDY W CONT (02/20/2018 4:33 PM CDT) Anatomical Region Laterality Modality Head Computed Tomogra phy 02/20/2018 4:36 PM CDT Impressions 02/20/2018 4:55 PM CDT IMPRESSION: ?? Normal CT brain perfusion. ?? DICTATION LOCATION: Location 7 - [facility] Narrative 02/20/2018 4:[address] BRAIN PERFUSION WITH IV CONTRAST DATE: ??02/20/2018 4:33 PM HISTORY: TIA, initial exam. ??Acute stroke with right-sided weakness. COMPARISON: No prior studies are available for comparison. TECHNIQUE: ??Contiguous axial perfusion images of the supratentorial compartment. ??40 mL of Isovue-370 was administered intravenously in the performance of the study with color perfusion post processing. ?? The examination was performed with the adjustment of mA according to the patient size and/or the use of Iterative Reconstruction Technique. FINDINGS: There is relatively symmetrical hemispheric perfusion with normal blood flow and blood volume bilaterally. ??The mean transit time is relatively symmetrical. ??There is no evidence of relative cerebral blood flow deficit with corresponding normal relative cerebral blood volume to suggest an acute perfusion defect or ischemic penumbra. ?? Procedure Note Jonathan Kennedy MD - 02/20/2018 CT BRAIN PERFUSION WITH IV CONTRAST DATE: 02/20/2018 4:33 PM HISTORY: TIA, initial exam. Acute stroke with right-sided weakness. COMPARISON: No prior studies are available for comparison. TECHNIQUE: Contiguous axial perfusion images of the supratentorial compartment. 40 mL of Isovue-370 was administered intravenously in the performance of the study with color perfusion post processing. The examination was performed with the adjustment of mA according to the patient size and/or the use of Iterative Reconstruction Technique. FINDINGS: There is relatively symmetrical hemispheric perfusion with normal blood flow and blood volume bilaterally. The mean transit time is relatively symmetrical. There is no evidence of relative cerebral blood flow deficit with corresponding normal relative cerebral blood volume to suggest an acute perfusion defect or ischemic penumbra. IMPRESSION: Normal CT brain perfusion. DICTATION LOCATION: Location [address] [place] [address] ORD ERABLES * (ABNORMAL) POC CREATININE (02/20/2018 4:18 PM CDT) CREATININE POC 0.60(L) 0.70 - 1.20 mg/dL 02/20/2018 4:19 PM CDT [facility] POINT OF CARE GFR >60 >=60 mL/min/1.7 3 sq meter 02/20/2018 4:19 PM CDT [facility] POINT OF CARE Comment: eGFR has not been validated for use in the elderly (> 70 years of age), women, patients with serious co-morbid conditions, or persons with extremes of body size or muscle mass and should also be interpreted with caution in patients with acute kidney failure, dialysis dependent patients, patients reporting exceptional dietary intake (e.g. vegetarian diet, high protein diets, creatine supplementation), and patients with severe liver disease. Based on National Kidney Disease Education Program If patient is , please refer to the GFR result. GFR, >60 >=60 mL/min/1.7 3 sq meter 02/20/2018 4:19 PM CDT [facility] POINT OF CARE Blood, capillary 02/20/2018 4:18 PM CDT 02/20/2018 4:19 PM CDT Irvin Cho MD POINT OF CARE TEE [facility] Organization Address City/State/ZIP Co de Phone Number [facility] POINT OF CARE CLIA # [id number] [place] [address] * CTA HEAD AND NECK W WO CONTRAST (02/20/2018 4:17 PM CDT) Anatomical Region Laterality Modality Head Computed Tomogra phy 02/20/2018 4:20 PM CDT Impressions 02/20/2018 4:55 PM CDT IMPRESSION: ?? No major vessel intracranial arterial occlusion. DICTATION LOCATION: Location Cherelle Rush 02/20/2018 4:[address] ANGIOGRAM BRAIN AND NECK WITH AND WITHOUT IV CONTRAST WITH REFORMATTED IMAGES DATE: ??02/20/2018 4:17 PM HISTORY: Acute stroke with right-sided weakness and slurred speech. COMPARISON: No prior studies are available for comparison. TECHNIQUE: ??1.25 mm contiguous axial images of the brain and neck from the aortic arch through the vertex with and without contrast. Sagittal and coronal reformatted images were performed. ??3D volumetric analysis with color image processing of the sy[place] of [place] intracranial circulation and cervical vasculature was performed on an independent workstation under the supervision of the physician. 90 mL Isovue-370 was administered intravenously in performance of the study. ?? The examination was performed with the adjustment of mA according to the patient size and/or the use of Iterative Reconstruction Technique. ?? FINDINGS: The thoracic inlet and lung apices are normal. The aortic arch and great vessels are normal. The bilateral cervical common carotid arteries and bilateral cervical vertebral arteries are normal in course and caliber. The bilateral cervical common carotid artery bifurcations are normal. The bilateral cervical internal carotid arteries are patent and normal in caliber. No intracranial hemorrhage or acute brain parenchymal abnormality is identified. ?? The A1 and A2 segments of the anterior cerebral arteries are normal. ??The anterior communicating artery is patent. ??The M1 and M2 segments of the middle cerebral arteries including the MCA bifurcations are normal. ??The basilar artery and proximal posterior cerebral arteries are normal in appearance. The reformatted images and 3D volumetric analysis fail to reveal any evidence of major vessel vessel occlusion. Procedure Note Jonathan Kennedy MD - 02/20/2018 CT ANGIOGRAM BRAIN AND NECK WITH AND WITHOUT IV CONTRAST WITH REFORMATTED IMAGES DATE: 02/20/2018 4:17 PM HISTORY: Acute stroke with right-sided weakness and slurred speech. COMPARISON: No prior studies are available for comparison. TECHNIQUE: 1.25 mm contiguous axial images of the brain and neck from the aortic arch through the vertex with and without contrast. Sagittal and coronal reformatted images were performed. 3D volumetric analysis with color image processing of the sy[place] of [place] intracranial circulation and cervical vasculature was performed on an independent workstation under the supervision of the physician. 90 mL Isovue-370 was administered intravenously in performance of the study. The examination was performed with the adjustment of mA according to the patient size and/or the use of Iterative Reconstruction Technique. FINDINGS: The thoracic inlet and lung apices are normal. The aortic arch and great vessels are normal. The bilateral cervical common carotid arteries and bilateral cervical vertebral arteries are normal in course and caliber. The bilateral cervical common carotid artery bifurcations are normal. The bilateral cervical internal carotid arteries are patent and normal in caliber. No intracranial hemorrhage or acute brain parenchymal abnormality is identified. The A1 and A2 segments of the anterior cerebral arteries are normal. The anterior communicating artery is patent. The M1 and M2 segments of the middle cerebral arteries including the MCA bifurcations are normal. The basilar artery and proximal posterior cerebral arteries are normal in appearance. The reformatted images and 3D volumetric analysis fail to reveal any evidence of major vessel vessel occlusion. IMPRESSION: No major vessel intracranial arterial occlusion. DICTATION LOCATION: [address] iDon Decker MD CT ORD ERABLES * EKG 12-LEAD (02/20/2018 4:02 PM CDT) Pathologist [facility] VENTRICULAR RATE 70 BPM INTERFACE SYSTEM ATRIAL RATE 70 BPM INTERFAC E SYSTEM P-R INTERVAL 180 ms INTERFA CE SYSTEM QRS DURATION 96 ms INTERFA CE SYSTEM Q-T INTERVAL 374 ms INTERFA CE SYSTEM QTC CALCULATION(BEZ ET) 403 ms INTERFACE SYSTEM P AXIS 35 degrees INTERFACE SYSTEM R AXIS -7 degrees INTERFACE SYSTEM T AXIS 52 degrees INTERFACE SYSTEM RESULT Normal sinus rhythm Normal ECG No previous ECGs available Confirmed by CELINA ZUNIGA MD ([id number]) on 02/20/2018 4:47:53 PM INTERFACE SYSTEM 02/20/2018 4:02 PM CDT 02/20/2018 4:47 PM CDT Irvin Cho MD ECG ORDERABLES INTERFACE SYSTEM Refer to clinic/hospital department * (ABNORMAL) COMPREHENSIVE METABOLIC PANEL (02/20/2018 4:00 PM CDT) Pathologist [facility] SODIUM 139 136 - 145 mmol/L 02/20/2018 4:35 PM [facility] POTASSIUM 3.8 3.4 - 5.1 mmol/L 02/20/2018 4:35 PM [facility] CHLORIDE 107 98 - 107 mmol/L 02/20/2018 4:35 PM [facility] CO2 19(L) 22 - 30 mmol/L 02/20/2018 4:35 PM [facility] CALCIUM 9.0 8.6 - 10.4 mg/dL 02/20/2018 4:35 PM [facility] BUN 11 6 - 20 mg/dL 02/20/2018 4:35 PM [facility] CREATININE 0.78 0.50 - 1.00 mg/dL 02/20/2018 4:35 PM [facility] GLUCOSE 179(H) 74 - 99 mg/dL 02/20/2018 4:35 PM [facility] TOTAL PROTEIN 6.8 6.3 - 8.7 g/dL 02/20/2018 4:35 PM [facility] ALBUMIN 4.0 3.5 - 5.2 g/dL 02/20/2018 4:35 PM [facility] BILIRUBIN TOTAL 0.2 0.2 - 1.3 mg/dL 02/20/2018 4:35 PM [facility] ALKALINE PHOSPHATASE 79 40 - 150 U/L 02/20/2018 4:35 PM [facility] AST 20 0 - 33 U/L 02/20/2018 4:35 PM [facility] ALT 20 0 - 33 U/L 02/20/2018 4:35 PM [facility] GFR >60 >=60 mL/min/1.7 3 sq meter 02/20/2018 4:35 PM [facility] Comment: eGFR has not been validated for use in the elderly (> 70 years of age), women, patients with serious co-morbid conditions, or persons with extremes of body size or muscle mass and should also be interpreted with caution in patients with acute kidney failure, dialysis dependent patients, patients reporting exceptional dietary intake (e.g. vegetarian diet, high protein diets, creatine supplementation), and patients with severe liver disease. Based on National Kidney Disease Education Program If patient is , please refer to the GFR result. GFR, >60 >=60 mL/min/1.7 3 sq meter 02/20/2018 4:35 PM CDT [facility] LABORATORY [facility] ANION GAP 13 8 - 16 mmol/L 02/20/2018 4:35 PM CDT [facility] Blood Venipuncture / Unknown 02/20/2018 4:00 PM CDT 02/20/2018 4:03 PM CDT Irvin Cho MD CHEMISTRY ORDERABLES Performing Organization Address City/[facility] Co de Phone Number [facility] [id number] [place] [address] * PROTIME-INR (02/20/2018 4:00 PM CDT) PROTIME 13.1 11.5 - 14.7 Seconds 02/20/2018 4:26 PM CDT [facility] INR 1.0 0.9 - 1.1 02/20/2018 4:26 PM CDT [facility] Blood Venipuncture / Unknown 02/20/2018 4:00 PM CDT 02/20/2018 4:03 PM CDT Irvin Cho MD HEMATOLOGY ORDERABLE S Performing Organization Address City/[facility]/ZIP Co de Phone Number [facility] [id number] [place] [address] * PTT (02/20/2018 4:00 PM CDT) PTT 29.2 23.1 - 37.1 seconds 02/20/2018 4:26 PM CDT [facility] Blood Venipuncture / Unknown 02/20/2018 4:00 PM CDT 02/20/2018 4:03 PM CDT Irvin Cho MD HEMATOLOGY ORDERABLE S [facility] [id number] [place] [address] * (ABNORMAL) SEDIMENTATION RATE (02/20/2018 4:00 PM CDT) Pathologist [facility] ESR (SEDIMENTATION RATE) 46(H) 0 - 30 mm/Hr 02/20/2018 4:19 PM CDT [facility] Blood Venipuncture / Unknown 02/20/2018 4:00 PM CDT 02/20/2018 4:03 PM CDT Irvin Cho MD HEMATOLOGY ORDERABLE S Performing Organization Address City/[facility]/ZIP Co de Phone Number [facility] [id number] [place] [address] * (ABNORMAL) CBC WITH DIFFERENTIAL (02/20/2018 4:00 PM CDT) Pathologist [facility] WBC 2.9(L) 4.5 - 10.5 K/uL 02/20/2018 4:09 PM CDT [facility] RBC 3.92 3.90 - 4.90 M/uL 02/20/2018 4:09 PM CDT [facility] LABORATORY [facility] HEMOGLOBIN 11.8 11.8 - 14.8 g/dL 02/20/2018 4:09 PM CDT [facility] HEMATOCRIT 34.9(L) 35.5 - 44.0 % 02/20/2018 4:09 PM CDT [facility] MCV 89.1 82.0 - 99.0 fL 02/20/2018 4:09 PM CDT [facility] MCH 30.1 27.8 - 34.5 pg 02/20/2018 4:09 PM CDT [facility] MCHC 33.8 32.5 - 35.5 g/dL 02/20/2018 4:09 PM T [facility] LABORATORY [facility] RDW 14.2 11.5 - 14.5 % 02/20/2018 4:09 PM T [facility] LABORATORY [facility] PLATELETS 138(L) 160 - 420 K/uL 02/20/2018 4:09 PM T [facility] LABORATORY [facility] MPV 7.4(L) 8.7 - 12.7 fL 02/20/2018 4:09 PM T [facility] LABORATORY [facility] NEUTROPHILS 84(H) 45 - 70 % 02/20/2018 4:09 PM T [facility] LABORATORY [facility] LYMPHOCYTES 11(L) 16 - 45 % 02/20/2018 4:09 PM T [facility] LABORATORY [facility] MONOCYTES 2(L) 3 - 13 % 02/20/2018 4:09 PM T [facility] LABORATORY [facility] EOSINOPHILS 1 0 - 7 % 02/20/2018 4:09 PM CDT [facility] LABORATORY [facility] BASOPHILS 1 0 - 2 % 02/20/2018 4:09 PM T [facility] LABORATORY [facility] IMMATURE GRANULOCYTES 0 0 - 5 % 02/20/2018 4:09 PM T [facility] LABORATORY [facility] NEUTROPHIL ABSOLUTE 2.50 1.90 - 7.00 K/uL 02/20/2018 4:09 PM T [facility] LABORATORY [facility] LYMPHOCYTE ABSOLUTE 0.30 K/uL 02/20/2018 4:09 PM T [facility] LABORATORY [facility] MONOCYTE ABSOLUTE 0.10 K/uL 018 4:09 PM T [facility] LABORATORY [facility] EOSINOPHIL ABSOLUTE 0.00 0.00 - 0.70 K/uL 02/20/2018 4:09 PM CDT [facility] LABORATORY [facility] BASOPHILS ABSOLUTE 0.00 K/uL 02/20/2018 4:09 PM T [facility] LABORATORY [facility] IMMATURE GRANULOCYTES ABSOLUTE 0.00 K/uL 02/20/2018 4:09 PM T [facility] LABORATORY [facility] Blood Venipuncture / Unknown 02/20/2018 4:00 PM CDT 02/20/2018 4:03 PM CDT Irvin Cho MD HEMATOLOGY ORDERABLE S Performing Organization Address City/[facility]/ZIP Co de Phone Number [facility] CLIA# [id number] [place] [address] * TYPE AND SCREEN (02/20/2018 4:00 PM CDT) ABO GROUP O 02/20/2018 4:00 PM CDT [facility] RH (D) TYPE Positive 02/20/2018 4:00 PM CDT [facility] ANTIBODY SCREEN Negative 02/20/2018 4:00 PM CDT [facility] Blood Venipuncture / Unknown 02/20/2018 4:00 PM CDT 02/20/2018 4:03 PM CDT Irvin Cho MD BLOOD BANK ORDERABLE S Performing Organization Address City/[facility]/ZIP Co de Phone Number [facility] CLIA# [id number] [place] [address] * CT HEAD WO CONTRAST STROKE PROTOCOL (02/20/2018 3:56 PM CDT) Anatomical Region Laterality Modality Head Computed Tomogra phy 02/20/2018 3:57 PM CDT Impressions 02/20/2018 4:53 PM CDT IMPRESSION: Normal. DICTATION LOCATION: Location [address] [place] [address] Narrative 02/20/2018 4:53 PM CDT COMPUTED TOMOGRAPHY HEAD WITHOUT CONTRAST DATE: 02/20/2018 HISTORY: Slurred speech and right-sided weakness. History of breast and colon cancer. FINDINGS: Transverse brain sections are obtained without contrast revealing normal-sized ventricles and sulci. Mccoy-white differentiation is intact. There is no intracranial hemorrhage, mass effect, fluid collection, or skull lesion. Procedure Note Boone Dahl MD - 02/20/2018 COMPUTED TOMOGRAPHY HEAD WITHOUT CONTRAST DATE: 02/20/2018 HISTORY: Slurred speech and right-sided weakness. History of breast and colon cancer. FINDINGS: Transverse brain sections are obtained without contrast revealing normal-sized ventricles and sulci. Mccoy-white differentiation is intact. There is no intracranial hemorrhage, mass effect, fluid collection, or skull lesion. IMPRESSION: Normal. DICTATION LOCATION: Location - [facility] Protocol [facility] Emergency MD CT ORDERABLES documented in this encounter Visit Diagnoses Diagnosis Aphasia- Primary Blood typing encounter Encounter for blood typing History of TIA (transient ischemic attack) and stroke Adverse effect of drug, initial encounter Right sided weakness Muscle weakness (generalized) History of TIA (transient ischemic attack) and stroke documented in this encounter Administered Medications Inactive Administered Medications - up to 3 most recent administrations Medication Order MAR Action Action Date Dose Rate Site amLODIPine (NORVASC) tablet 5 mg 5 mg, Oral, DAILY, First dose on Sat02/21/18 at 1745, Until Discontinued, Routine aspirin (VIRA CHEWABLE) chew tablet 324 mg 324 mg, Oral, DAILY, First dose on Bonnie 02/20/18 at 2100, Until Discontinued, Routine Given 02/21/2018 8:58 AM CDT 324 mg Given 02/20/2018 10:21 PM CDT 324 mg aspirin (VIRA CHEWABLE) chew tablet 81 mg 81 mg, Oral, DAILY WITH BREAKFAST, First dose on Sat02/22/18 at 0800, Until Discontinued, Routine atorvastatin (LIPITOR) tablet 20 mg 20 mg, Oral, DAILY AT BEDTIME, First dose on Sat02/21/18 at 2100, Until Discontinued, Routine cloNIDine HCl (CATAPRES) tablet 0.1 mg 0.1 mg, Oral, ONE TIME ONLY, 1 dose, On Sat02/21/18 at 1730, Routine Given 02/21/2018 5:22 PM CDT 0.1 mg dextrose 5 % in water 250 mL flush bag 25 mL 25 mL, IV, SEE ADMIN INSTRUCTIONS, Starting on Bonnie 02/20/18 at 1928, Until Sat02/21/18 at 203, Routine diazePAM (VALIUM) tablet 5 mg 5 mg, Oral, ONE TIME PRN, 1 dose, Starting on Sat02/21/18 at 1057, Until Sat02/21/18 at 1247, Anxiety, Routine Given 02/21/2018 12:47 PM CDT 5 mg enoxaparin (LOVENOX) injection 40 mg 40 mg, subCUT, EVERY 24 HOURS, First dose on Sat02/20/18 at 2100, Until Discontinued, Routine Given 02/20/2018 10:22 PM CDT 40 mg Abdo dylan Tissue famotidine (PEPCID) tablet 20 mg 20 mg, Oral, TWO TIMES DAILY, First dose on Sat02/20/18 at 2100, Until Discontinued, Routine Given 02/21/2018 8:58 AM CDT 20 mg Given 02/20/2018 10:21 PM CDT 20 mg fluticasone-vilanterol (BREO ELLIPTA) 100-25 mcg/dose inhaler 1 Puff 1 Puff, Inhalation, DAILY RESPIRATORY, First dose on Sat02/21/18 at 0800, Until Discontinued, Routine Given 02/21/2018 8:59 AM CDT 1 Puff heparin, porcine lock flush (pf) 100 unit/mL injection 300 Units 300 Units, IV, ONE TIME ONLY, 1 dose, On Sat02/21/18 at 1630, Routine Given 02/21/2018 4:28 PM CDT 300 Units iopamidol (ISOVUE-370) 76 % injection 130 mL 130 mL, IV, INTRA-PROCEDURE ONCE, 1 dose, Starting on Bonnie 02/20/18 at 1612, Until Bonnie 02/20/18 at 1618, Routine Contrast Given 02/20/2018 4:18 PM CDT 90 mL iopamidol (ISOVUE-370) 76 % injection 40 mL 40 mL, IV, INTRA-PROCEDURE ONCE, 1 dose, Starting on Bonnie 02/20/18 at 1632, Until Bonnie 02/20/18 at 1636, Routine Contrast Given 02/20/2018 4:36 PM CDT 40 mL perflutren lipid microspheres (DEFINITY) 1.1 mg/mL injection 2 mL 2 mL, IV, INTRA-PROCEDURE ONCE, 1 dose, Starting on Sat02/21/18 at 1320, Until Sat02/21/18 at 1500, Routine Contrast Given 02/21/2018 3:00 PM CDT 2 mL PERFLUTREN LIPID MICROSPHERES 1.1 MG/ML INTRAVENOUS SUSPENSION (CABINET OVERRIDE) 1 dose, Starting on Sat02/21/18 at 1432, Until Sat02/21/18 at 1500, CHRISTINA SUTTC1: cabinet override sertraline (ZOLOFT) tablet 50 mg 50 mg, Oral, DAILY AT BEDTIME, First dose on Bonnie 02/20/18 at 2100, Until Discontinued, Routine Given 02/20/2018 10:22 PM CDT 50 mg sodium chloride 0.9 % 250 mL flush bag 25 mL 25 mL, IV, SEE ADMIN INSTRUCTIONS, Starting on Bonnie 02/20/18 at 1928, Until Sat02/21/18 at 2031, Routine sodium chloride 0.9 % flush injection 10 mL IV, SEE ADMIN INSTRUCTIONS, Starting on Sat02/21/18 at 1321, Until Sat02/21/18 at 203, Routine Given 02/21/2018 3:10 PM CDT 10 mL sodium chloride 0.9 % flush injection 10 mL IV, SEE ADMIN INSTRUCTIONS, Starting on Sat02/21/18 at 1321, Until Sat02/21/18 at 2030, Routine Given 02/21/2018 4:29 PM CDT 10 mL SODIUM CHLORIDE 0.9 % INJECTION SYRINGE (CABINET OVERRIDE) 1 dose, Starting on Sat02/21/18 at 1432, Until Sat02/21/18 at 1510, CHRISTINA DECKERTC1: cabinet override SODIUM CHLORIDE 0.9 %, BACTERIOSTATIC INJECTION SOLUTION (CABINET OVERRIDE) 1 dose, Starting on Sat02/21/18 at 1432, Until Sat02/21/18 at 1500, CHRISTINA DECKERTC1: cabinet override sodium chloride 0.9% bolus solution 50 mL 50 mL, IV, ONE TIME ONLY, 1 dose, On Bonnie 02/20/18 at 1615, at 3,000 mL/hr, Administer over 1 Minutes, Routine New Bag 02/20/2018 4:15 PM CDT 50 mL 3000 mL/hr sodium chloride bacteriostatic 0.9 % injection 10 mL 10 mL, IV, SEE ADMIN INSTRUCTIONS, Starting on Sat02/21/18 at 1321, Until Sat02/21/18 at 203, Routine Given 02/21/2018 3:00 PM CDT 10 mL sodium chloride flush injection 5 mL 5 mL, IV, EVERY 12 HOURS, First dose on Bonnie 02/20/18 at 1930, Until Discontinued, Routine Admin by Another Clinician (Comment) 02/21/2018 7:30 AM CDT 5 mL Given 02/20/2018 10:24 PM CDT 5 mL sodium chloride flush injection 5 mL 5 mL, IV, SEE ADMIN INSTRUCTIONS, Starting on Sat02/20/18 at 1928, Until Sat02/21/18 at 2030, Routine venlafaxine (EFFEXOR XR) SR 24 hour capsule 75 mg 75 mg, Oral, DAILY, First dose on Sat02/21/18 at 0900, Until Discontinued, Routine Given 02/21/2018 8:58 AM CDT 75 mg documented in this encounter Active and Recently Administered Medications Times are shown in CDT. Scheduled Medication Order 02/19/2018 02/20/2018 02/21/2018 amLODIPine (NORVASC) tablet 5 mg 5 mg, Oral, DAILY, First dose on Sat02/21/18 at 1745, Until Discontinued, Routine 174 (Not Given - Provider: Galilea Cifuentes RN - Reason: Clarify-Other (Comment)) aspirin (VIRA CHEWABLE) chew tablet 324 mg (CANCELED) 324 mg, Oral, DAILY, First dose on Sat02/20/18 at 2100, Until Discontinued, Routine 2220 (Given - Provider: Meka Gaona RN) 0858 (Given - Provider: Galilea Cifuentes RN) aspirin (VIRA CHEWABLE) chew tablet 81 mg 81 mg, Oral, DAILY WITH BREAKFAST, First dose on Sat02/22/18 at 0800, Until Discontinued, Routine atorvastatin (LIPITOR) tablet 20 mg 20 mg, Oral, DAILY AT BEDTIME, First dose on Sat02/21/18 at 2100, Until Discontinued, Routine cloNIDine HCl (CATAPRES) tablet 0.1 mg (COMPLETED) 0.1 mg, Oral, ONE TIME ONLY, 1 dose, On Sat02/21/18 at 1730, Routine 172 (Given - Provid er: Galilea Cifuentes RN) dextrose 5 % in water 250 mL flush bag 25 mL 25 mL, IV, SEE ADMIN INSTRUCTIONS, Starting on Sat02/20/18 at 1928, Until Sat02/21/18 at 2030, Routine enoxaparin (LOVENOX) injection 40 mg 40 mg, subCUT, EVERY 24 HOURS, First dose on Sat02/20/18 at 2100, Until Discontinued, Routine 222 (Given - Provider: Meka Gaona RN) famotidine (PEPCID) tablet 20 mg 20 mg, Oral, TWO TIMES DAILY, First dose on Sat02/20/18 at 2100, Until Discontinued, Routine 2221 (Given - Provider: Meka Gaona RN) 0858 (Given - Provider: Galilea Cifuentes RN) fluticasone-vilanterol (BREO ELLIPTA) 100-25 mcg/dose inhaler 1 Puff 1 Puff, Inhalation, DAILY RESPIRATORY, First dose on Sat02/21/18 at 0800, Until Discontinued, Routine 0859 (Given - Provid er: Galilea Cifuentes RN) heparin, porcine lock flush (pf) 100 unit/mL injection 300 Units (COMPLETED) 300 Units, IV, ONE TIME ONLY, 1 dose, On Sat02/21/18 at 1630, Routine 1628 (Given - Provid er: Janel Bynum RN) iopamidol (ISOVUE-370) 76 % injection 130 mL (COMPLETED) 130 mL, IV, INTRA-PROCEDURE ONCE, 1 dose, Starting on Sat02/20/18 at 1612, Until Sat02/20/18 at 1618, Routine 1618 (Contrast Given - Provider: Patricia Blue, RT) iopamidol (ISOVUE-370) 76 % injection 40 mL (COMPLETED) 40 mL, IV, INTRA-PROCEDURE ONCE, 1 dose, Starting on Sat02/20/18 at 1632, Until Sat02/20/18 at 1636, Routine 1636 (Contrast Given - Provider: Patricia Blue, RT) naloxone (NARCAN) 0.4 mg/mL injection 0.1 mg 0.1 mg, IV, SEE ADMIN INSTRUCTIONS, Starting on Sat02/20/18 at 1922, Until Sat02/21/18 at 2031, Routine perflutren lipid microspheres (DEFINITY) 1.1 mg/mL injection 2 mL (COMPLETED) 2 mL, IV, INTRA-PROCEDURE ONCE, 1 dose, Starting on Sat02/21/18 at 1320, Until Sat02/21/18 at 1500, Routine 1500 (Contrast Given - Provider: Lyssa Nunes DEMARCUS) polyethylene glycol (MIRALAX) packet 17 Gram 17 Gram, Oral, TWO TIMES DAILY, First dose on Sat02/20/18 at 2100, Until Discontinued, Routine 2100 (Refused - Provider: Meka Gaona RN) 0900 (Refused - Provider: Galilea Cifuentes RN) sertraline (ZOLOFT) tablet 50 mg 50 mg, Oral, DAILY AT BEDTIME, First dose on Sat02/20/18 at 2100, Until Discontinued, Routine 2222 (Given - Provider: Meka Gaona RN) sodium chloride 0.9 % 250 mL flush bag 25 mL 25 mL, IV, SEE ADMIN INSTRUCTIONS, Starting on Sat02/20/18 at 1928, Until Sat02/21/18 at 2030, Routine sodium chloride 0.9 % flush injection 10 mL IV, SEE ADMIN INSTRUCTIONS, Starting on Sat02/21/18 at 1321, Until Sat02/21/18 at 203, Routine 1510 (Given - Provid er: Lyssa Nunes RDCS) sodium chloride 0.9 % flush injection 10 mL IV, SEE ADMIN INSTRUCTIONS, Starting on Sat02/21/18 at 1321, Until Sat02/21/18 at 2030, Routine 1629 (Given - Provid er: Janel Bynum RN) sodium chloride 0.9% bolus solution 50 mL (COMPLETED) 50 mL, IV, ONE TIME ONLY, 1 dose, On Sat02/20/18 at 1615, at 3,000 mL/hr, Administer over 1 Minutes, Routine 1615 (New Bag - Provider: Patricai Blue, RT)1646 (Stopped - Provider: Saloni Blake RN) sodium chloride bacteriostatic 0.9 % injection 10 mL 10 mL, IV, SEE ADMIN INSTRUCTIONS, Starting on Sat02/21/18 at 1321, Until Sat02/21/18 at 2030, Routine 1500 (Given - Provid er: Lyssa Nunes RDCS) sodium chloride flush injection 5 mL 5 mL, IV, EVERY 12 HOURS, First dose on Sat02/20/18 at 1930, Until Discontinued, Routine 2224 (Given - Provider: Meka Gaona RN) 0730 (Admin by Another Clinician (Comment) - Provider: Galilea Cifuentes RN - Comment: Cristy MACKENZIE while doing blood draw) sodium chloride flush injection 5 mL 5 mL, IV, SEE ADMIN INSTRUCTIONS, Starting on Sat02/20/18 at 1928, Until Sat02/21/18 at 2030, Routine venlafaxine (EFFEXOR XR) SR 24 hour capsule 75 mg 75 mg, Oral, DAILY, First dose on Sat02/21/18 at 0900, Until Discontinued, Routine 0858 (Given - Provid er: Galilea Cifuentes RN) PRN Medication Order 02/19/2018 02/20/2018 02/21/2018 ALPRAZolam (XANAX) tablet 0.25 mg 0.25 mg, Oral, THREE TIMES DAILY PRN, Starting on Bonnie 02/20/18 at 2048, Until Sat02/21/18 at 2031, Anxiety, Routine diazePAM (VALIUM) tablet 5 mg (COMPLETED) 5 mg, Oral, ONE TIME PRN, 1 dose, Starting on Sat02/21/18 at 1057, Until Sat02/21/18 at 1247, Anxiety, Routine 1247 (Given - Provid er: Galilea Cifuentes RN) documented in this encounter Care Teams Bus And Trolley Dispatcher Relationship Specialty Start Date End Date Hugo Smith MD PCP - General Family Practice 02/20/18 documented as of this encounter
--- OUTSIDE RECORDS SUMMARY | 2024-04-24 14:09 | XMS_ITS | Encounter Summary ---
Author Organization [facility] Address [address] [place] [address] Care Team Providers Care Chief Ii Dispatcher Name Role Phone Ravi Smith MD Primary Care Provider [phone] Reason for Visit * Reason Onset Date Comments Hospital Follow Up 02/24/2018 Encounter Details Date Type Department Care Team (Late st Contact Info) Description 02/24/2018 Telephone [facility] Management [address] [place] [address] Evon Preston LPN Hospital Follow Up Social History Tobacco Use Types Packs/Day Years [...] Miscellaneous Notes * Telephone Encounter - Evon Preston LPN - 02/24/2018 4:01 PM CDT Hospital Discharge Date: 02/21/2018 Patient met criteria for: Non-priority Call Status: Completed OTHER - Did you receive explanations and written instructions that you could understand?: Yes OTHER - Were you sent home with any prescriptions?: No OTHER - Did you make a follow -up appointment with your physician?: Yes documented in this encounter Plan of Treatment Not on file documented as of this encounter Visit Diagnoses Not on filedocumented in this encounter Care Teams Chief Ii Dispatcher Relationship Specialty Start Date End Date Ravi Smith MD PCP - General Family Practice 02/20/18 documented as of this encounter
--- OUTSIDE RECORDS SUMMARY | 2024-04-24 14:44 | XMS_ITS | Referral Summary ---
Author Organization [facility] Address [address] [place] [address] Care Team Providers Care Water Resources Technical Officer Name Role Phone Aft, Kianna Machado MD PhD Unavailable [phone] Santiago Gilbert MD Unavailable [phone] Abbi Ventura MD Unavailable Montse Thompson MD Unavailable [phone] Lela Hardy MD PhD Unavailable [phone] Trena Obando MD Unavailable [phone] Dat Benito DO Primary Care Provider [phone] Encounters Date Type Department Care Team Description 02/25/2024 Telephone [facility] [address] [place] [address] Uriel Corral 02/19/2024 1:43 PM CDT - 02/19/2024 11:59 PM CDT Hospital Encounter [facility] [address] [place], [place] [id number] Malignant neoplasm of upper-inner quadrant of left breast in female, estrogen receptor negative (HCC); Chest wall pain Discharge Disposition: Discharge to home or self care 02/05/2024 2:45 PM CDT Lab [facility] [address] [place] [address] Malignant neoplasm of upper-inner quadrant of left breast in female, estrogen receptor negative (HCC); 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) 02/05/2024 3:30 PM CDT Office Visit [facility] [address] [place] [address] Abbi Ventura MD Malignant neoplasm of descending [...] Cancer Staging:Pathologic:Stage IIA(pT2, pN0(sn), cM0, G3, ER-, RI-, HER2-) - Signed by Roger Dorsey MD on 12/23/2018 Clinical:Stage IIB(cT2, cN0, cM0, G3, ER-, RI-, HER2-) - Signed by Lela Hardy MD [...] on file Legal Sex Female 1:06 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 Gender Identity Not on file Sexual Orientation [...] cm (5' 9 ) 06/27/2023 12:52 PM STAPLE LASTER Body Mass Index 31.75 06/27/2023 12:52 PM STAPLE LASTER Plan of Treatment Not on file Medical Devices Implanted Type Area Relationship Specialist Device Identifier Shelf Expiration Date Model / Serial / Lot [employer] [id number] Powerport Clearvue Airguard 8fr 1 Lumen Lightweight Intermediate Latex Free - [id number] Implanted:Qty: 1 on 01/14/2018 by Aft, Kianna Machado MD PhD at [facility] Other - see comments Right: Chest Wall [employer] [id number] 05/05/2019 [id number] / / [id number] Description:Power port-a-cat h inserted into the right [...] by: Dora Sandoval M.D. Abbi Ventura MD [facility] [place]ED[place] Final Result * (ABNORMAL) eGFR [...] LAB BLOOD ORDERABLES Final Resul t [facility] Department [place] [address] * Differential, auto (02/05/2024 3:00 PM CDT) Neutrophil abs 6.2 1.5 - 6.5 K/cumm Comment:Testing performed by : [facility], [address] [place] [address] Imm gran abs 0.0 0.0 - 0.1 K/cumm [facility] Lymphocyte abs 1.8 0.8 - 3.3 K/cumm [facility] Monocyte abs 0.5 0.2 - 0.8 K/cumm [facility] Eosinophil abs 0.4 0.0 - 0.5 K/cumm [facility] Basophil abs 0.1 0.0 - 0.1 K/cumm [facility] Neutrophil pct 69.5 % [facility] Comment: Interpretive Data Percent cell count reference ranges are not reported, since discordance with absolute values may lead to misinterpretation of CBC data. Current Interpretive Data was last revised on 2017. Imm gran pct 0.3 % [facility] Comment: Interpretive Data Percent cell count reference ranges are not reported, since discordance with absolute values may lead to misinterpretation of CBC data. Current Interpretive Data was last revised on 2017. Lymphocyte pct 19.7 % [facility] Comment: Interpretive Data Percent cell count reference ranges are not reported, since discordance with absolute values may lead to misinterpretation of CBC data. Current Interpretive Data was last revised on 2017. Monocyte pct 5.5 % [facility] Comment: Interpretive Data Percent cell count reference ranges are not reported, since discordance with absolute values may lead to misinterpretation of CBC data. Current Interpretive Data was last revised on 2017. Eosinophil pct 4.1 % [facility] Comment: Interpretive [...] Resul t [facility] Department [place] [address] * (ABNORMAL) CBC with auto differential (02/05/2024 3:00 PM CDT) [facility] WBC 9.0 3.8 - 9.9 K/cumm Comment:Testing performed by : [facility], [address] [place] [address] Hgb 11.1(L) 11.9 - 15.5 g/dL [facility] Comment:Testing performed by : [address] [address] Hct 35.0(L) 35.6 - 45.5 % [facility] Comment:Testing performed by : [address] [address] Plt 179 150 - 400 K/cumm [facility] Comment:Testing performed by : [address] [address] MPV 9.6 9.1 - 12.3 fL [facility] RBC 3.85(L) 3.90 - 5.20 M/cumm [facility] MCV 90.9 81.3 - 96.4 fL [facility] MCH 28.8 27.1 - 33.3 pg [facility] MCHC 31.7(L) 32.3 - 35.7 g/dL [facility] RDW CV 13.6 11.1 - 14.9 % [facility] RDW SD 45.3 35.7 - 48.1 fL [facility] NRBC abs 0.00 0.00 - 0.01 K/cumm [facility] Blood 02/05/2024 3:00 PM CDT 02/05/2024 3:00 PM CDT us Abbi Ventura MD LAB BLOOD ORDERABLES Final Resul t [facility] [place] [address] * CA 125 (02/05/2024 3:00 PM CDT) [facility] CA 125 ag 8.0 0.0 - 38.1 units/mL Comment: Interpretive Data The Bo CA 125 assay procedure was used. Results from different manufacturers or methods may not be comparable. Serial testing should be performed using the same method. Blood 02/05/2024 3:00 PM CDT 02/05/2024 7:10 PM CDT Abbi Ventura MD LAB BLOOD ORDERABLES Final Resul t Performing Organization Address [facility] [place] [address] * CEA (02/05/2024 3:00 PM CDT) [facility] CEA 1.3 <=5.0 ng/mL Comment: Interpretive Data: [...] ORDERABLES Final Resul t Performing Organization Address [facility] de Phone Number [facility] [place] [address] * (ABNORMAL) Comprehensive metabolic panel (02/05/2024 3:00 PM CDT) [facility] Sodium 139 135 - 145 mmol/L Comment:Testing performed by : [facility], [address] [place] [address] Potassium, pl 4.0 3.3 - 4.9 mmol/L [facility] Chloride 109 97 - 110 mmol/L [facility] CO2 24 22 - 32 mmol/L [facility] Anion gap 6 2 - 15 mmol/L [facility] BUN 24 6 - 25 mg/dL [facility] Creatinine 1.69(H) 0.60 - 1.10 mg/dL [facility] Glucose 105 70 - 199 mg/dL [facility] [...] 2022. Calcium 9.1 8.5 - 10.3 mg/dL [facility] Bilirubin, total 0.4 0.1 - 1.2 mg/dL [facility] Protein, pl 7.0 6.5 - 8.5 g/dL [facility] Albumin 4.5 3.5 - 5.0 g/dL [facility] Alk phos 72 40 - 130 Units/L [facility] ALT 11 7 - 45 Units/L [facility] AST 18 10 - 45 Units/L [facility] Blood 02/05/2024 3:00 PM CDT 02/05/2024 3:00 PM CDT us Abbi Ventura MD LAB BLOOD ORDERABLES Final Resul t Performing Organization Address City/State/[facility] Co de Phone Number [facility] Department [place] [address] * Screening Mammogram Bilateral W Mathew (09/28/2021 2:39 PM CDT) Anatomical Region Laterality Modality Breast Bilateral Mammography Narrative 09/29/2021 9:59 AM CDT Mammogram Technique: Bilateral Digital Breast Tomosynthesis, Bilateral C-view 2D Screening mammogram. ??Views obtained: ??bilateral craniocaudal and bilateral mediolateral oblique. ??Computer Aided Detection was performed. Mammogram Findings: The present examination has been compared to prior imaging studies performed at [facility] on 11/05/2017, 08/11/2018 and 10/06/2020. There are [...] compared to prior imaging studies performed at [facility] on 11/05/2017, 08/11/2018 and 10/06/2020. There are [...] CDT 09/18/2021 5:36 PM CDT Narrative PATHOLOGY [facility] - 09/22/2021 5:14 PM CDT EPIC results best viewed via link to PDF [facility] Galilea Muñiz [facility] [place] [address] Note to Patients: This report may contain [...] ??F : ??[id number] (Age: 66) Address: ??[address] [place], [place] ??[address] Hospital #: ??[id number] Service: ??WASHER ENGINEER Location: ?? Patient Type: ??[facility] SPECIMEN Taken: ??09/18/2021 Received: ??09/18/2021 Accessioned: ??09/19/2021 [...] 70. ??This HPV test was performed at [facility] in [place], [place] utilizing the Gen-Probe Aptima assay. This specimen has been rescreened in accordance with this laboratory's Bagman/Woman Program. j/09/22/2021 17:14 IMTIAZ Gray(ASCP) Report Electronically Reviewed and Signed Out By PATTIE Montana(ASCP), [facility] 09/22/2021 17:14:55 Cervicovaginal Cytology (Pap Test) Disclaimer: [...] Pap. The HPV test was performed by [facility], [address] [place] [address]. Report Images and scanned documents, if included only viewable in PDF version The performance characteristics of some immunohistochemical stains, in-situ hybridization and fluorescence in-situ hybridization tests and immunophenotyping by flow cytometry cited in this report (if any) were determined by the Surgical Pathology Department at [facility] as part of an ongoing quality auditor program and in compliance with federally mandated [...] LAB CYTOLOGY ORDERABLES Bethanie wesley Result PATHOLOGY [facility] 3rd Floor [place], [place] [phone] from Last 3 Months or Most Recently Relevant to Health Maintenance Insurance MEDICARE COUNTS INCLUDE 234 BEDS AT THE [facility] INSURANCE CHOICE [facility] PPO [place] MEDICARE [facility] INSURANCE Advance Directives For more information, please contact: [phone] * Full Code (Latest Code Status on [...] 1:25 PM 02/14/2019 4:03 PM Care Teams Water Resources Technical Officer Relationship Specialty Start Date End Date Dat Benito DO [address] [place] [address] PCP - General Internal Medicine 09/28/21 Aft, Kianna Machado MD PhD [address] [place] [address] Surgeon Surgical Oncology 11/22/17 Santiago Gilbert MD [address] [place] [address] Mannequin Wig Maker Gastroenterology 11/22/17 Abbi Ventura MD [address] [place] [address] [address] [place] [address] Medical Oncologist/Research Subject Medical Oncology 12/03/18 Montse Thompson MD [address] [place] [address] Consulting Physician Gynecologic Oncology 12/03/18 Lela Hardy MD PhD [address] [facility] [address] [place] [address] Radiation Oncologist Radiation Oncology 12/23/18 Trena Obando MD [address] [place] [address] Consulting Physician Neurology 09/18/21
--- OUTSIDE RECORDS SUMMARY | 2024-04-24 14:44 | XMS_ITS | Encounter Summary ---
Author Organization [facility] Address [address] [place] [address] Care Team Providers Care Water Chaser Name Role Phone Ravi Smith MD Primary Care Provider [phone] Reason for Visit * Reason Onset Date Comments Hospital Follow Up 02/24/2018 Encounter Details Date Type Department Care Team (Late st Contact Info) Description 02/24/2018 Telephone [facility] Management [address] [place] [address] Evon Preston LPN Hospital Follow [...] filedocumented in this encounter Care Teams Water Chaser Relationship Specialty Start Date End Date Ravi Smith MD PCP - General Family Practice 02/20/18 documented as of this encounter
--- OUTSIDE RECORDS SUMMARY | 2024-04-24 14:44 | XMS_ITS | Encounter Summary ---
Author Organization [facility] Healthcare Address [address] [place] [address] Care Team Providers Care Nipple Machine Operator Name Role Phone Aft, Kianna Machado MD PhD Unavailable [phone] Santiago Gilbert MD Unavailable [phone] Abbi Ventura MD Unavailable Montse Thompson MD Unavailable Lela Hardy MD PhD Unavailable Trena Obando MD Unavailable [phone] Dat Benito DO Primary Care Provider [phone] Reason for Referral * Diagnostic Imaging (Routine) - Closed Specialty Diagnoses / Procedures Referred By Contronny t Referred To Contact Radiology Diagnoses Malignant neoplasm of upper-inner quadrant of left breast in female, estrogen receptor negative (HCC) Procedures IR Inject Abscess Catheter Ronny Xavier PA [address] [facility] [address] [place] [address] Phone: tel: fax: [address] [address] Referral ID Status Reason Start Date Expiration Date Visits Re quested Visits Authorized [id number] Closed 07/30/2023 08/28/2024 1 1 * Diagnostic Imaging (Routine) - Closed Specialty Diagnoses / Procedures Referred By Contac t Referred To Contact Radiology Diagnoses Malignant neoplasm of upper-inner quadrant of left breast in female, estrogen receptor negative (HCC) Procedures IR Inject Abscess Catheter Shannon Hassan MD [address] [place] [address] Phone: tel: fax: [address] [address] Referral ID Status Reason Start Date Expiration Date Visits Re quested Visits Authorized [id number] Closed 07/17/2023 08/15/2024 1 1 Reason for Visit * Diagnostic Imaging (Routine) - Closed Specialty Diagnoses / Procedures Referred By Contac t Referred To Contact Radiology Diagnoses Malignant neoplasm of upper-inner quadrant of left breast in female, estrogen receptor negative (HCC) Procedures IR Inject Abscess Catheter Shannon Hassan MD [address] [place] [address] Phone: tel: fax: [address] [address] Referral ID Status Reason Start Date Expiration Date Visits Re quested Visits Authorized [id number] Closed 07/17/2023 08/15/2024 1 1 Encounter Details Date Type Department Care Team (Late st Contact Info) Description 07/30/2023 7:10 AM CDT - 07/30/2023 11:59 PM CDT Hospital Encounter [facility] [place] [address] [place] [address] Ronny Xavier PA [address] [facility] [address] [place] [address] Malignant neoplasm of upper-inner quadrant of left [...] file 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 To contact an Interventional Radiologist at [facility] call [phone] Saturday through Saturday from 7:30am-4:30pm. At all other times call [phone] and ask that the Interventional Radiologist be paged. To contact an Interventional Radiologist at [facility] call [phone] Saturday through Saturday from 7:30am-3:30pm. To contact an Interventional Radiologist RN at [facility] call [phone] Saturday through Saturday from 7:00 am-5:00 pm. To schedule an appointment with Interventional Radiology at [facility] call [phone] Saturday through Saturday from 7:30 am-4:00 pm. [...] at Please come to: [] 3rd Floor [facility] [] 4th floor [facility] [] [facility] [] [facility] Please call [phone] if you need to schedule a follow [...] questions arise, please contact us by calling [phone]. Dictated by: Amari Gifford MD The radiology [...] procedure. TECHNIQUE: Prior to beginning the procedure, [place] Protocol was used to confirm the patient's identity and planned procedure. Fluoroscopy time has been recorded in the electronic medical record. After obtaining a assistant child care teacher image, the catheter was injected with [...] procedure. TECHNIQUE: Prior to beginning the procedure, [place] Protocol was used to confirm the patient's identity and planned procedure. Fluoroscopy time has been recorded in the electronic medical record. After obtaining a assistant child care teacher image, the catheter was injected with [...] questions arise, please contact us by calling [phone]. Dictated by: Amari Gifford MD The radiology [...] questions arise, please contact us by calling [phone]. Electronically signed by: Ronny Xavier PA-C Narrative 07/30/2023 11:59 AM CDT EXAMINATION: ??DRAINAGE CATHETER EVALUATION AND EXCHANGE HISTORY: ??67-year-old woman with history of breast cancer and colon adenocarcinoma, status post bilateral mastectomy with increasing fluid collection in the left chest wall. IR placed a 12 Bruneian cope loop catheter on 07/17/2023. Patient reports approximately 1 ounce of thin clear yellow fluid daily output. PROVIDER PRESENCE: ??Ronny Xavier PA-C was present from the beginning to the end of the procedure. SEDATION: ??The patient did not require conscious sedation for the procedure. TECHNIQUE: ??Prior to beginning the procedure, [place] Protocol was used to confirm the patient's identity and planned procedure. Fluoroscopy time has been recorded in the electronic medical record. Maximum sterile barriers including cap, mask, hand hygiene, sterile gloves, sterile gown, large sterile drape and 2% chlorhexidine for cutaneous antisepsis were used. After obtaining a assistant child care teacher image, the catheter was injected with dilute contrast and multiple diagnostic fluoroscopic spot images were obtained. The skin overlying the collection was sterilely prepped, draped and infiltrated with 1% buffered lidocaine. The catheter was then exchanged over a SendRRson guidewire for a new 10 Bruneian Haque-Ryder catheter. ??Limited contrast injection confirmed appropriate [...] left chest wall. IR placed a 12 Bruneian cope loop catheter on 07/17/2023. Patient reports approximately 1 ounce of thin clear yellow fluid daily output. PROVIDER PRESENCE: Ronny Xavier PA-C was present from the beginning to the end of the procedure. SEDATION: The patient did not require conscious sedation for the procedure. TECHNIQUE: Prior to beginning the procedure, [place] Protocol was used to confirm the patient's identity and planned procedure. Fluoroscopy time has been recorded in the electronic medical record. Maximum sterile barriers including cap, mask, hand hygiene, sterile gloves, sterile gown, large sterile drape and 2% chlorhexidine for cutaneous antisepsis were used. After obtaining a assistant child care teacher image, the catheter was injected with dilute contrast and multiple diagnostic fluoroscopic spot images were obtained. The skin overlying the collection was sterilely prepped, draped and infiltrated with 1% buffered lidocaine. The catheter was then exchanged over a Bentson guidewire for a new 10 Bruneian Haque-Ryder catheter. Limited contrast injection confirmed appropriate [...] questions arise, please contact us by calling [phone]. Electronically signed by: Ronny Xavier PA-C Shannon [...] 07/30/2023 documented in this encounter Care Teams Nipple Machine Operator Relationship Specialty Start Date End Date Dat Benito DO [address] [place] [address] PCP - General Internal Medicine 09/28/21 Aft, Kianna Machado MD PhD [address] [place] [address] Surgeon Surgical Oncology 11/22/17 Santiago Gilbert MD [address] [place] [address] Journeyman Pressman Gastroenterology 11/22/17 Abbi Ventura MD [address] [facility] [address] [place] [address] Medical Oncologist/Self Defense Instructor Medical Oncology 12/03/18 Montse Thompson MD [address] [facility] [address] [place] [address] Consulting Physician Gynecologic Oncology 12/03/18 Lela Hardy MD PhD [address] [facility] [address] [place] [address] Radiation Oncologist Radiation Oncology 12/23/18 Trena Obando MD [address] [place] [address] Consulting Physician Neurology 09/18/21 documented as of this encounter
--- OUTSIDE RECORDS SUMMARY | 2024-04-24 14:44 | XMS_ITS | Encounter Summary ---
Author Organization [facility] Healthcare Address [address] [place] [address] Care Team Providers Care Outsole Rounder Name Role Phone Aft, Kianna Machado MD PhD Unavailable [phone] Santiago Gilbert MD Unavailable [phone] Abbi Ventura MD Unavailable Monste Thompson MD Unavailable [phone] Lela Hardy MD PhD Unavailable [phone] Trena Obando MD Unavailable [phone] Dat Benito DO Primary Care Provider [phone] Reason for Referral * MRI/CAT/PET Scan (Routine) - Closed Specialty Diagnoses / Procedures Referred By Vijaya simpson Referred To Contact Radiology Diagnoses Malignant neoplasm of upper-inner quadrant of left breast in female, estrogen receptor negative (HCC) Chest wall pain Procedures MRI Brachial Plexus W WO Contrast Right Abbi Ventura MD [address] [place] [address] [address] [place] [address] Phone: tel: fax: [facility] Referral ID Status Reason Start Date Expiration Date Visits Re quested Visits Authorized [id number] Closed 02/05/2024 03/06/2025 1 1 Reason for Visit * MRI/CAT/PET Scan (Routine) - Closed Specialty Diagnoses / Procedures Referred By Contac t Referred To Contact Radiology Diagnoses Malignant neoplasm of upper-inner quadrant of left breast in female, estrogen receptor negative (HCC) Chest wall pain Procedures MRI Brachial Plexus W WO Contrast Right Abbi Ventura MD [address] [facility] [address] [place] [address] Phone: tel: fax: [facility] Referral ID Status Reason Start Date Expiration Date Visits Re quested Visits Authorized [id number] Closed 02/05/2024 03/06/2025 1 1 Encounter Details Date Type Department Care Team (Latest Contact Info) Description 02/19/2024 1:43 PM CDT - 02/19/2024 11:59 PM CDT Hospital Encounter [facility] [address] [place] [address] Malignant neoplasm of upper-inner quadrant of left [...] on file 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 Abbi Ventura MD [facility] MRI PROCEDURES Final Result documented in this [...] 02/03 documented in this encounter Care Teams Outsole Rounder Relationship Specialty Start Date End Date Dat Benito DO [address] [place] [address] PCP - General Internal Medicine 09/28/21 Aft, Kianna Machado MD PhD [address] [place] [address] Surgeon Surgical Oncology 11/22/17 Santiago Gilbert MD [address] [place] [address] Special Delivery Clerk Gastroenterology 11/22/17 Abbi Ventura MD [address] [place] [address] [address] [place] [address] Medical Oncologist/Academic Assistant Medical Oncology 12/03/18 Montse Thompson MD [address] [place] [address] [address] [place] [address] Consulting Physician Gynecologic Oncology 12/03/18 Lela Hardy MD PhD [address] [place] [address] [address] [place] [address] Radiation Oncologist Radiation Oncology 12/23/18 Trena Obando MD [address] [place] [address] Consulting Physician Neurology 09/18/21 documented as of this encounter
--- OUTSIDE RECORDS SUMMARY | 2024-04-24 14:44 | XMS_ITS | Encounter Summary ---
Author Organization [facility] Healthcare Address [address] [place] [address] Care Team Providers Care Boat Ride Operator Name Role Phone Aft, Kianna Machado MD PhD Unavailable [phone] Santiago Gilbert MD Unavailable [phone] Abbi Ventura MD Unavailable Montse Thompson MD Unavailable [phone] Lela Hardy MD PhD Unavailable [phone] Trena Obando MD Unavailable [phone] Dat Benito DO Primary Care Provider [phone] Reason for Referral * Diagnostic Imaging (Routine) - Closed Specialty Diagnoses / Procedures Referred By Contronny t Referred To Contact Radiology Diagnoses Malignant neoplasm of upper-inner quadrant of left breast in female, estrogen receptor negative (HCC) Procedures IR Inject Abscess Catheter Ronny Xavier PA [address] [facility] [address] [place] [address] Phone: tel: fax: [address] [address] Referral ID Status Reason Start Date Expiration Date Visits Re quested Visits Authorized [id number] Closed 07/30/2023 08/28/2024 1 1 Reason for Visit * Diagnostic Imaging (Routine) - Closed Specialty Diagnoses / Procedures Referred By Vijaya simpson Referred To Contact Radiology Diagnoses Malignant neoplasm of upper-inner quadrant of left breast in female, estrogen receptor negative (HCC) Procedures IR Inject Abscess Catheter Ronny Xavier PA [address] [facility] [address] [place] [address] Phone: tel: fax: [address] [place] [address] Referral ID Status Reason Start Date Expiration Date Visits Re quested Visits Authorized [id number] Closed 07/30/2023 08/28/2024 1 1 Encounter Details Date Type Department Care Team (Latest Contact Info) Description 08/12/2023 12:22 PM CDT - 08/12/2023 11:59 PM CDT Hospital Encounter [facility] Radiology [address] [address] Malignant neoplasm of upper-inner quadrant of left [...] on file 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 To contact an Interventional Radiologist at [facility] call [phone] Saturday through Saturday from 7:30am-4:30pm. At all other times call [phone] and ask that the Interventional Radiologist be paged. To contact an Interventional Radiologist at [facility] call [phone] Saturday through Saturday from 7:30am-3:30pm. To contact an Interventional Radiologist RN at [facility] call [phone] Saturday through Saturday from 7:00 am-5:00 pm. To schedule an appointment with Interventional Radiology at [facility] call [phone] Saturday through Saturday from 7:30 am-4:00 pm. [...] at Please come to: [] 3rd Floor [facility] [] [address]th [facility] [] [facility] [] [facility] Please call [phone] if you need to schedule a follow [...] Radiology Brief Post Procedure Note Attending: Kay Parimutuel Ticket Cashier: Balta Sedation/Anesthesia: None Pre-Op/Pre-Procedure Diagnosis: Left chest [...] questions arise, please contact us by calling [phone]. Dictated by: Amari Gifford MD The radiology [...] procedure. TECHNIQUE: Prior to beginning the procedure, [place] Protocol was used to confirm the patient's identity and planned procedure. Fluoroscopy time has been recorded in the electronic medical record. After obtaining a knife operator image, the catheter was injected with dilute [...] yellow fluid output per day. ATTENDING PRESENCE: Pualo Villanueva M.D., the attending radiologist, was present from the beginning to the end of the procedure. SEDATION: The patient did not require conscious sedation for the procedure. TECHNIQUE: Prior to beginning the procedure, [place] Protocol was used to confirm the patient's identity and planned procedure. Fluoroscopy time has been recorded in the electronic medical record. After obtaining a knife operator image, the catheter was injected with dilute [...] questions arise, please contact us by calling [phone]. Dictated by: Amari Gifford MD The radiology [...] 08/12/2023 documented in this encounter Care Teams Boat Ride Operator Relationship Specialty Start Date End Date Dta Benito DO [address] [place] [address] PCP - General Internal Medicine 09/28/21 Aft, Kianna Machado MD PhD [address] [place] [address] Surgeon Surgical Oncology 11/22/17 Santiago Gilbert MD [address] [place] [address] Folding Machine Operator Gastroenterology 11/22/17 Abbi Ventura MD 10 [facility] [address] [place], [place] [address] Medical Oncologist/Wellness Coordinator Medical Oncology 12/03/18 Montse Thompson MD [address] [facility] [address] [place], [place] [address] Consulting Physician Gynecologic Oncology 12/03/18 Lela Hardy MD PhD [address] [facility] [address] [place] [address] Radiation Oncologist Radiation Oncology 12/23/18 Trena Obando MD [address] [place], [place] [address] Consulting Physician Neurology 09/18/21 documented as of this encounter
--- OUTSIDE RECORDS SUMMARY | 2024-04-24 14:44 | XMS_ITS | Encounter Summary ---
Author Organization [facility] Healthcare Address [address] [place] [address] Care Team Providers Care Electrostatic Paint Operator Name Role Phone Aft, Kianna Machado MD PhD Unavailable [phone] Santiago Gilbert MD Unavailable Abbi Ventura MD Unavailable Montse Thompson MD Unavailable [phone] Lela Hardy MD PhD Unavailable [phone] Trena Obando MD Unavailable [phone] Dat Benito DO Primary Care Provider [phone] Encounter Details Date Type Department Care Team (Late st Contact Info) Description 08/07/2023 Telephone [facility]iology [address] [place] [address] Boo Real RN Social History Tobacco Use [...] on file 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 Gender Identity Not on file Sexual Orientation Not on file documented as of this encounter Miscellaneous Notes * Telephone Encounter - Boo Real RN - 08/07/2023 3:08 PM CDT No answer documented in this encounter Plan of Treatment Not on file documented as of this encounter Visit Diagnoses Not on filedocumented in this encounter Care Teams Electrostatic Paint Operator Relationship Specialty Start Date End Date Dat Benito DO [address] [place] [address] PCP - General Internal Medicine 09/28/21 Aft, Kianna Machado MD PhD [address] [place] [address] Surgeon Surgical Oncology 11/22/17 Santiago Gilbert MD [address] [place] [address] Relocation Specialist Gastroenterology 11/22/17 Abbi Ventura MD [address] [place] [address] Medical Oncologist/Statement Request Clerk Medical Oncology 12/03/18 Montse Thompson MD [address] [place] [address] Consulting Physician Gynecologic Oncology 12/03/18 Lela Hardy MD PhD [address] [facility] [address] [place] [address] Radiation Oncologist Radiation Oncology 12/23/18 Trena Obando MD [address] [place] [address] Consulting Physician Neurology 09/18/21 documented as of this encounter
--- OUTSIDE RECORDS SUMMARY | 2024-04-24 14:44 | XMS_ITS | Encounter Summary ---
Author Organization [facility] Address [address] [place] [address] Phone Care Team Providers Care Animal Ecologist Name Role Phone Aft, Kianna Machado MD PhD Unavailable [phone] Santiago Gilbert MD Unavailable [phone] Abbi Ventura MD Unavailable Montse Thompson MD Unavailable [phone] Lela Hardy MD PhD Unavailable [phone] Trena Obando MD Unavailable [phone] Dat Benito DO Primary Care Provider [phone] Reason for Referral * MRI/CAT/PET Scan (Routine) - Closed Specialty Diagnoses / Procedures Referred By Contac t Referred To Contact Radiology Diagnoses Malignant neoplasm of upper-inner quadrant of left breast in female, estrogen receptor negative (HCC) Chest wall pain Procedures MRI Brachial Plexus W WO Contrast Right Abbi Ventura MD [address] [facility] [address] [place] [address] Phone: tel: fax: [facility] Referral ID Status Reason Start Date Expiration Date Visits Re quested Visits Authorized [id number] Closed 02/05/2024 03/06/2025 1 1 * MRI/CAT/PET Scan (Routine) - Closed Specialty Diagnoses / Procedures Referred By Vijaya t Referred To Contact Radiology Diagnoses Malignant neoplasm of upper-inner quadrant of left breast in female, estrogen receptor negative (HCC) Chest wall pain Procedures MRI Chest W WO Contrast bAbi Ventura MD [address] [facility] [address] [place] [address] Phone: tel: fax: [facility] Referral ID Status Reason Start Date Expiration Date Visits Re quested Visits Authorized [id number] Closed 02/05/2024 03/06/2025 1 1 Encounter Details Date Type Department Care Team (Late st Contact Info) Description 02/05/2024 3:30 PM CDT Office Visit [facility] Oncology [address] [place] [address] Abbi Ventura MD [address] [facility] [address] [place] [address] Malignant neoplasm of descending colon [...] on file 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 Partial mastectomy and [...] 04/13/22 showed invasive ductal carcinoma. ER negative [place] negative Her 2 negative Bilateral mastectomy 05/22/22 [...] Recent labs, radiology and pathology reviewed in [facility] ASSESSMENT: Stage I [id number] right breast cancer -ER negative [place] negative Her 2 negative- Mammaprint could not [...] cancer - no evidence of cancer recurrence. [facility]2 [facility], [...] back sooner. F/u Dr. Gilbert, her local javascript programmer, colonoscopy completed 12/2021 and repeat in 3 years Aleah Gerber will follow up as directed above, she was encouraged to call in the interim with questions or concerns. We will continue to monitor and review for side effects from treatment. Abbi Ventura MD welcome wagon hostess Division of Oncology Section of Medical Oncology [facility] Backing In Machine Tender completed by using Application Craft Direct speaking software, therefore, transcriptionvariances may occur. [...] by: Josselyn Mancera M.D. Abbi Ventura MD [facility] MRI PROCEDURES Final Result * MRI Chest [...] 02/05/2024 documented in this encounter Care Teams Animal Ecologist Relationship Specialty Start Date End Date Dat Benito DO [address] [place] [address] PCP - General Internal Medicine 09/28/21 Aft, Kianna Machado MD PhD [address] [place] [address] Surgeon Surgical Oncology 11/22/17 Santiago Gilbert MD [address] [place] [address] Nutrition Teacher Gastroenterology 11/22/17 Abbi Ventura MD [address] [place] [address] [address] [place] [address] Medical Oncologist/Electricity Trader Medical Oncology 12/03/18 Montse Thompson MD 10 [facility] [address] [place] [address] Consulting Physician Gynecologic Oncology 12/03/18 Lela Hardy MD PhD [address] [place] [address] [address] [place] [address] Radiation Oncologist Radiation Oncology 12/23/18 Trena Obando MD [address] [place] [address] Consulting Physician Neurology 09/18/21 documented as of this encounter
--- OUTSIDE RECORDS SUMMARY | 2024-04-24 14:44 | XMS_ITS | Encounter Summary ---
Author Organization [facility] Healthcare Address [address] [place] [address] Care Team Providers Care Watch Manufacturing Supervisor Name Role Phone Aft, Kianna Machado MD PhD Unavailable [phone] Santiago Gilbert MD Unavailable [phone] Abbi Ventura MD Unavailable Montse Thompson MD Unavailable [phone] Lela Hardy MD PhD Unavailable [phone] Trena Obando MD Unavailable [phone] Dat Benito DO Primary Care Provider [phone] Encounter Details Date Type Department Care Team (Late st Contact Info) Description 07/26/2023 Telephone [facility] Radiology [address] [place] [address] Leroy Pepper, RN Social History Tobacco Use [...] on file 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 Gender Identity Not on file Sexual Orientation Not on file documented as of this encounter Plan of Treatment Not on file documented as of this encounter Visit Diagnoses Not on filedocumented in this encounter Care Teams Watch Manufacturing Supervisor Relationship Specialty Start Date End Date Dat Benito DO [address] [place] [address] PCP - General Internal Medicine 09/28/21 Aft, Kianna Machado MD PhD [address] [place] [address] Surgeon Surgical Oncology 11/22/17 Santiago Gilbert MD [address] [place] [address] Reinforcer Gastroenterology 11/22/17 Abbi Ventura MD [address] [place] [address] [address] [place] [address] Medical Oncologist/Integrated Logistics Operations Manager Medical Oncology 12/03/18 Montse Thompson MD [address] [place] [address] [address] [place] [address] Consulting Physician Gynecologic Oncology 12/03/18 Lela Hardy MD PhD [address] [place] [address] [address] [place] [address] Radiation Oncologist Radiation Oncology 12/23/18 Trena Obando MD [address] [place] [address] Consulting Physician Neurology 09/18/21 documented as of this encounter
--- OUTSIDE RECORDS SUMMARY | 2024-04-24 14:44 | XMS_ITS | Encounter Summary ---
Author Organization [facility] Address [address] [place] [address] Care Team Providers Care Oil Laboratory Analyst Name Role Phone Hugo Smith MD Primary Care Provider [phone]- [phone] Reason for Visit * Reason Comments Dysphasia Extremity Weakness * Auth/Cert Specialty Diagnoses / Procedures Referred By Vijaya simpson Referred To Contact Multi Specialty [facility] Medical Telemetry [address] [place] [address] Referral ID Status Reason Start Date Expiration Date Visits Re quested Visits Authorized [id number] 1 1 Encounter Details Date Type Department Care Team (Late st Contact Info) Description 02/20/2018 3:45 PM CDT - 02/21/2018 3:57 PM CDT Emergency [facility] Medical Telemetry [address] [place] [address] [place] [address] [place] [address] Víctor Conde MD [address] [place] [phone] Nolan Barrera MD [address] [place] [address] Aphasia Discharge Disposition: Home or [...] Barrera MD - 02/21/2018 3:58 PM CDT [facility] Hospitalist Group Discharge Summary Patient Name: Aleah [...] cancer status post resection undergoing chemotherapy at [facility]. Came in with speech disturbance and right-sided [...] we could ask Aleah to be a [facility] Office. Called Patient, she does not have [...] Your Medications These medications were sent to [facility] [place] [address] Hours: Saturday - Saturday 7AM - 8PM. [...] Signed: Nolan Barrera MD 02/21/2018, 5:42 PM [facility] Hospitalist Group documented in this encounter Discharge Instructions * Discharge Instructions* Galilea Cifuentes, LYDIA - 02/21/2018 4:04 PM CDT CMP in 2-4 weeks w PCP to monitor liver enzymes after starting statin * Attachments The following attachments cannot be sent through Care Everywhere. * TIA (Transient Ischemic Attack) (Vincentian) * Aphasia: General Info (Vincentian) * Weakness: Generalized (Vincentian) documented in this encounter Medications at Time [...] Barrera MD - 02/21/2018 9:13 AM CDT [facility] Hospitalist Group Daily Progress Note Admit Date: [...] IMPRESSION: No active disease. DICTATION LOCATION: Location [address] [place] [address] No results found for this or any [...] analysis with color image processing of the [place] intracranial circulation and cervical vasculature [...] major vessel intracranial arterial occlusion. DICTATION LOCATION: [address] Cerebral Perfusion Stdy W Cont [...] IMPRESSION: Normal CT brain perfusion. DICTATION LOCATION: [address] Xr Chest Pa Or Ap 1 [...] junction. IMPRESSION: No active disease. DICTATION LOCATION: [address] Head Wo Contrast Stroke Protocol Result Date: 02/20/2018 COMPUTED TOMOGRAPHY HEAD WITHOUT CONTRAST DATE: 02/20/2018 HISTORY: Slurred speech and right-sided weakness. History of breast and colon cancer. FINDINGS: Transverse brain sections are obtained without contrast revealing normal-sized ventricles and sulci. Mccoy-white differentiation is intact. Thereis no intracranial hemorrhage, mass effect, fluid collection, or skull lesion. IMPRESSION: Normal. DICTATION LOCATION: [address] Results for orders placed during the hospital encounter of 02/20/18 CT CEREBRAL PERFUSION STDY W CONT Impression IMPRESSION: Normal CT brain perfusion. DICTATION LOCATION: [address] Assessment/Plan: Known history of left breast cancer status post lumpectomy and colon cancer status post resection undergoing chemotherapy at [facility]. Came in with speech disturbance and right-sided weakness/ataxia, now resolved 1. To consider CVA/TIA-CT angiogram and perfusion unremarkable, pending MRI of the brain, pending neurology consult, possible chemotherapy related issue 2. Known colon [id number] with [facility] for continuation of chemotherapy 3. Known left breast ttbqxc-fklryn-tq with [facility] for continuation of therapy 4. Generalized anxiety [...] Code Status -Full Code Nolan Barrera MD [facility] Hospitalist Group * Patricia Blue, RT - 02/20/2018 4:13 PM CDT IMAGING SERVICES - COMPUTED TOMOGRAPHY MEDICATION and FLUSH PROTOCOL [facility] THIS PROTOCOL IS IMPLEMENTED WHEN AN APPROVED PROVIDER ORDERS A CT SCAN WITH CONTRAST BY PAPER OR ELECTRONIC ORDER. The mass spectrometry specialist will order place an order in EPIC for contrast ???Scope of Practice - no cosignrequired?? . Enter the protocol in the patient???s electronic health record using [employer]: .[facility] Communication Orders: ??? For ordered imaging procedures [...] procedure. ??? If at any time the Floor Director has a question about which option to [...] oral. May use nasoenteric tube if needed. [place] to 3 months Administer up to 90mL [...] Iopamidol solution with the patient to CT. [place] Administer 45mL of diluted Iopamidol oral solution, [...] less than 55kg and confirm dose with radiologist.[place] to 15 years old Administer up to 2.2mL/kg (to MAX of 80 mL) of Iopamidol (Isovue-370) 76%, intravenously, one time only 15 years old and older Administer up to 2.2mL/kg (to MAX of 125mL) of Iopamidol (Isovue-370) 76%, intravenously, one time only Initiating Department(s): Imaging Services - CT Approved by: Karan Montilla, Construction Secretary Services Date: 10/2017 Approved by: Jonathan Kennedy MD, Cardiovascular Surgical Tech Date: 10/2017 Approved by: P&T Committee Date: 11/2017 Approved by: Medical Executive Committee Date: 12/2017 documented in this encounter H&P Notes * Paulo Coker, - 02/20/2018 8:31 PM CDT [facility] Hospitalist Group History & Physical Patient Name: [...] her second round of chemotherapy today at [facility] when she had the onset of word finding difficulty as well as right arm ataxia and weakness in right leg weakness. She told the staff at [facility], who felt it might be an allergic [...] patient. Certainly given the patient's chemotherapy, specifically [place] based therapy, can cause neurotoxicity and could [...] this time, patient is currently following with [facility]. 4. Anxiety-we will continue the patient's home medications. 5. Leukopenia/thrombocytopenia-I suspect this is secondary to her chemotherapy. We will need to monitor and can follow-up with her oncologist. 6. DVT Prophlaxis: SCDs * Current Planned Disposition: home * Current Code Status: Full Code Plan discussed in detail with patient Case discussed with the ER provider. Paulo Coker DO [facility] Hospitalist Group documented in this encounter Consult Notes * Dion Bolivar MD - 02/21/2018 2:55 PM CDTAssociated Order(s): [...] second round of chemotherapy on 02/20/2018 at [facility] and she has been sent to the [facility] ER. Patient had a right upper extremity weaknessand ataxia and right lower extremity weakness. She was given Benadryl and Pepcid at [facility] and did not help so she was [...] mL 40 mL IV Intra-Proc Once Jonathan Kennedy MD 40 mL at 02/20/18 1636 ??? [...] anxiety (-), suicidal ideations (-), hallucinations (-) THREE KNIFE TRIMMER: Seizures (-), weakness (+), tingling (-), numbness [...] Good muscle tone. Strength is 5/5 Cerebellar Xoaleq-ae-esxf normal bilaterally.Rapid alternating movements normal. Gait; Not [...] analysis with color image processing of the [place] intracranial circulation and cervical vasculature [...] major vessel intracranial arterial occlusion. DICTATION LOCATION: [address] Cerebral Perfusion Stdy W Cont [...] IMPRESSION: Normal CT brain perfusion. DICTATION LOCATION: [address] Xr Chest Pa Or Ap 1 [...] junction. IMPRESSION: No active disease. DICTATION LOCATION: [address] Head Wo Contrast Stroke Protocol Result Date: 02/20/2018 COMPUTED TOMOGRAPHY HEAD WITHOUT CONTRAST DATE: 02/20/2018 HISTORY: Slurred speech and right-sided weakness. History of breast and colon cancer. FINDINGS: Transverse brain sections are obtained without contrast revealing normal-sized ventricles and sulci. Mccoy-white differentiation is intact. Thereis no intracranial hemorrhage, mass effect, fluid collection, or skull lesion. IMPRESSION: Normal. DICTATION LOCATION: Location [address] [place] [address] Thanks for allowing me to participate in [...] Pt coming in after being treated at [facility] today for colon cancer. Pt also has [...] Expected time: 3:43 PM Means of arrival: [facility] ([id number]) Comments: Go between A & B Santos coming from the [facility] right side weakness, slurred speech onset 1430 hx TIA no thinners bp 194/84 hr 70 rr 14-16 97 % d-stick 159 Stroke nurse called , returned call 1542 CT 2 * Irvin Cho MD - 02/20/2018 3:44 PM CDT HISTORY OF PRESENT ILLNESS Aleah Gerber, a 62 y.o. female presents to the ED with a Chief Complaint of Dysphasia and Extremity Weakness (1707) Aleah Gerber is a 62 y.o. 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 DICTATION LOCATION: Location [address] [place] [address] CT CEREBRAL PERFUSION STDY W CONT Radiologist Impression IMPRESSION: Normal CT brain perfusion. DICTATION LOCATION: Location [address] [place] [address] CTA HEAD AND NECK W WO CONTRAST Radiologist Impression IMPRESSION: No major vessel intracranial arterial occlusion. DICTATION LOCATION: [address] HEAD WO CONTRAST STROKE PROTOCOL Radiologist Impression IMPRESSION: Normal. DICTATION LOCATION: Location [address] [place] [address] Pulse oximetry: Saturation: 97% Delivery: RA Interpretation: Not hypoxic Rhythm Strip: Normal sinus rhythm; No arrhythmia; Ventricular rate (bpm) 74 EKG: EKG per my interpretation: Normal sinus rhythm; Ventricular rate (bpm) 70 Normal OK and QT intervals No ST segment abnormalities [...] Date/Time Comment Admit Stable Irvin Cho MD [facility] Feb 20, 2018 5:31 PM ATTESTATION STATEMENTS [...] nursing swallowing screen or was evaluated by INDUSTRIAL RECRUITER prior to any oral intake. Met ??? [...] often go to a nursing facility). Met [place] Pathway: Adult and Obstetrics Day 1 ??? Patient, family, or healthcare designee is participating in individual care plan process Met ??? Patient, family, or healthcare designee understands side effects of medications Met [place] Path[facility]: Adult and Obstetrics Day 1 ??? [...] will continue to follow for discharge planning. [place] Path[facility]: Adult and Obstetrics Day 1 ??? [...] patient???s current status. Lavonne Rowe OT ascom [phone] * Care Plan - Cristy Cosby RN [...] 7:27 PM CDT Adult IV Flush Protocol [facility] ORDERS ARE ENTERED ???PER PROTOCOL?? Enter the protocol in the patient???s electronic health record using [employer]: .adultivflushprotocol Nursing Orders ??? Place Peripheral IV [...] HEMOGLOBIN A1C Routine 02/20/2018 9:38 PM CDT INDUSTRIAL RECRUITER EVALUATE AND TREAT Routine 8 8:52 PM [...] INTERFACE SYSTEM - 02/21/2018 3:28 PM CDT [place] [id number] Transthoracic Echocardiogram Name: ALEAH GERBER MR #: [id number] Room #: 7236 Age: 62 years Study date: 21-Feb-2018 Gender: Female Weight: 254.5 lb Height: 69 in Reading Physician: ??Kitty Romero MD Referring Physician: ??Paulo Coker, DO Rewinder Operator Helper: ??Lyssa Nunes BS RDCS RN: ??Nelia Reyes [...] Contrast injection was performed. There was no jcttw-rh-mzfq shunt, with provocative maneuvers to increase right [...] Contrast injection was performed. There was no frrdt-yu-bkot shunt, with provocative maneuvers to increase right [...] mode; Apical four chamber;: 20.7 ml/m2 Major [place]; 2D mode; Apical four chamber;: 9.1 cm [...] Procedure Note Kitty Romero MD - 02/21/2018 [place] [address] Transthoracic Echocardiogram Name: ALEAH GERBER MR #: [id number] Room #: 7236 Age: 62 years Study date: 21-Feb-2018 Gender: Female Weight: 254.5 lb Height: 69 in Reading Physician: Kitty Romero MD Referring Physician: Paulo Coker DO Rewinder Operator Helper: Lyssa YU RDCS RN: Nelia Reyes RN [...] start of the study. Systolic blood pressure uxe301 mmHg, at the start of the study. [...] septum: Contrast injection was performed. There was ajfwamg-cs-omwp shunt, with provocative maneuvers to increase right [...] SEPTUM: Contrast injection was performed. There was lkdvhpj-dj-zljh shunt, with provocative maneuvers to increase right [...] 2D mode; Apicalfour chamber;: 20.7 ml/m2 [place]; 2D mode; Apical four chamber;: 9.1 cm [...] chronic white matter infarct. DICTATION LOCATION: Location [address] [place] [address] Narrative 02/21/2018 4:06 PM CDT MRI BRAIN [...] chronic white matter infarct. DICTATION LOCATION: Location [address] [place] [address] Paulo Delaney Sheela FRANCO MR ORDERABLES * (ABNORMAL) LIPID PANEL (02/21/2018 8:01 AM CDT) CHOLESTEROL 216(H) <200 mg/dL 02/21/2018 8:47 AM [facility] TRIGLYCERIDE 145 <150 mg/dL 02/21/2018 8:47 AM T [facility] HDL 51(L) >57 mg/dL 02/21/2018 8:47 AM [facility] LDL CALCULATED 136(H) <100 mg/dL 02/21/2018 8:47 AM [facility] NON-HDL CHOLESTEROL 165(H) <130 mg/dL 02/21/2018 8:47 AM T [facility] Blood Venipuncture / Unknown 02/21/2018 8:01 AM CDT 02/21/2018 8:04 AM CDT [facility] - 02/21/2018 8:47 AM CDT TOTAL CHOLESTEROL [...] Panels (NCEP/AMA) Paulo Coker DO CHEMISTRY ORDERABLES [facility] CLIA# [id number] [place] [address] * (ABNORMAL) POC GLUCOSE (02/21/2018 6:16 AM CDT) GLUCOSE POC 263(H) 74 - 99 mg/dL 02/21/2018 6:16 AM CDT [facility] POINT OF CARE STOCK GRADER NAME JAMIR RUIZ 02/21/2018 6:16 AM CDT [facility] POINT [facility] CARE Whole blood specimen (specimen) 02/21/2018 6:16 AM CDT 02/21/2018 6:16 AM CDT Víctor Conde MD POINT OF CARE TESTIN Romero Performing Organization Address [facility] Co or Phone Number [facility] CLIA # [id number] [address] [place] [address] * (ABNORMAL) POC GLUCOSE (02/20/2018 11:55 PM CDT) GLUCOSE POC 286(H) 74 - 99 mg/dL 02/20/2018 11:55 PM CDT [facility] POINT OF CARE STOCK GRADER NAME JAMIR RUIZ 02/20/2018 11:55 PM CDT [facility] Whole blood specimen (specimen) 02/20/2018 11:55 PM CDT 02/20/2018 11:55 PM CDT Víctor Conde MD POINT OF CARE TESTIN Romero Performing Organization Address [facility] Phone Number [facility] CLIA # [id number] [place] [address] * EKG 12-LEAD (02/20/2018 9:56 PM CDT) [...] 6.4(H) <=6.1 % 02/20/2018 9:57 PM CDT [facility] FP Complete [facility] EST. AVG GLUCOSE, A1C 137 mg/dL 02/20/2018 9:57 PM CDT [facility] Blood Venipuncture / Unknown 02/20/2018 9:38 PM CDT 02/20/2018 9:38 PM CDT Narrative [facility] FP Complete [facility] - 02/20/2018 9:57 PM CDT HGB A1C INTERPRETATION NORMAL: ? <5.7% PRE-DIABETES: 5.7 - 6.4% DIABETES: ? 6.5% OR GREATER Paulo Coker DO CHEMISTRY ORDERABLES Performing Organization Address City/[facility] Co de Phone Number [facility] CLIA# [id number] [place] [address] * XR CHEST PA OR AP 1 VW (02/20/2018 5:02 PM CDT) Anatomical Region Laterality Modality Chest Computed Radiogr aphy 02/20/2018 5:04 PM CDT Impressions 02/20/2018 5:16 PM CDT IMPRESSION: No active disease. DICTATION LOCATION: Location - [facility] Narrative 02/20/2018 5:16 PM CDT [...] IMPRESSION: No active disease. DICTATION LOCATION: Location [address] [place] [address] Irvin Cho MD DIAGNOSTIC IMAGING O RDERABLES * URINALYSIS WITH REFLEX CULTURE (02/20/2018 4:48 PM CDT) COLOR UA Pale Yellow Pale to Dark Yellow 02/20/2018 5:06 PM CDT [facility] CLARITY UA Clear Clear 02/20/2018 5:06 PM CDT [facility] SPECIFIC GRAVITY UA 1.014 1.003 - 1.035 02/20/2018 5:06 PM CDT [facility] LABORATORY [facility] PH UA 5.0 5.0 - 8.0 02/20/2018 5:06 PM CDT [facility] LEUKOCYTE ESTERASE UA Negative Negative 02/20/2018 5:06 PM CDT [facility] NITRITE UA Negative Negative 02/20/2018 5:06 PM CDT [facility] PROTEIN UA Negative Negative 02/20/2018 5:06 PM CDT [facility] GLUCOSE UA Negative Negative 02/20/2018 5:06 PM CDT [facility] KETONES UA Negative Negative 02/20/2018 5:06 PM CDT [facility] UROBILINOGEN UA Normal <2.0 mg/dL 8 5:06 PM CDT [facility] BILIRUBIN UA Negative Negative 02/20/2018 5:06 PM CDT [facility] BLOOD UA Negative Negative 02/20/2018 5:06 PM CDT [facility] Ascorbic Acid UA Negative Negative 02/21/20 18 5:06 PM CDT [facility] Urine URINE SPECIMEN OBTAINED BY CLEAN CATCH PROCEDURE / Unknown Collection / Unknown 02/20/2018 4:48 PM CDT 02/20/2018 4:59 PM CDT Irvin Cho MD URINE ORDERABLES [facility] LABORATORY SERVICES - [facility] CLIA# [id number] [address] [place] [address] * CT CEREBRAL PERFUSION STDY W CONT (02/20/2018 4:33 PM CDT) Anatomical Region Laterality Modality Head Computed Tomogra phy 02/20/2018 4:36 PM CDT Impressions 02/20/2018 4:55 PM CDT IMPRESSION: ?? Normal CT brain perfusion. ?? DICTATION LOCATION: Location 7 - [facility] Narrative 02/20/2018 4:55 PM CDT [...] Normal CT brain perfusion. DICTATION LOCATION: Location [address] [place] [address] ORD ERABLES * (ABNORMAL) POC CREATININE (02/20/2018 4:18 PM CDT) CREATININE POC 0.60(L) 0.70 - 1.20 mg/dL 02/20/2018 4:19 PM CDT [facility] GFR >60 >=60 mL/min/1.7 3 sq meter 02/20/2018 4:19 PM CDT [facility] Comment: eGFR has not [...] 3 sq meter 02/20/2018 4:19 PM CDT [facility] Blood, capillary 02/20/2018 4:18 PM CDT 02/20/2018 4:19 PM CDT Irvin Cho MD POINT OF CARE TEE [facility] Organization Address City/State/ZIP Co de Phone Number [facility] CLIA # [id number] [place] [address] * CTA HEAD AND NECK W WO [...] analysis with color image processing of the [place] intracranial circulation and cervical vasculature [...] analysis with color image processing of the [place] intracranial circulation and cervical vasculature [...] major vessel intracranial arterial occlusion. DICTATION LOCATION: [address] Dion Decker MD CT ORD ERABLES * EKG 12-LEAD (02/20/2018 4:02 PM CDT) Pathologist [facility] VENTRICULAR RATE 70 BPM INTERFACE SYSTEM ATRIAL [...] METABOLIC PANEL (02/20/2018 4:00 PM CDT) Pathologist [facility] SODIUM 139 136 - 145 mmol/L 02/20/2018 4:35 PM [facility] POTASSIUM 3.8 3.4 - 5.1 mmol/L 02/20/2018 4:35 PM [facility] CHLORIDE 107 98 - 107 mmol/L 02/20/2018 4:35 PM [facility] CO2 19(L) 22 - 30 mmol/L 02/20/2018 4:35 PM [facility] CALCIUM 9.0 8.6 - 10.4 mg/dL 02/20/2018 4:35 PM [facility] BUN 11 6 - 20 mg/dL 02/20/2018 4:35 PM [facility] CREATININE 0.78 0.50 - 1.00 mg/dL 02/20/2018 4:35 PM [facility] GLUCOSE 179(H) 74 - 99 mg/dL 02/20/2018 4:35 PM [facility] TOTAL PROTEIN 6.8 6.3 - 8.7 g/dL 02/20/2018 4:35 PM [facility] ALBUMIN 4.0 3.5 - 5.2 g/dL 02/20/2018 4:35 PM [facility] BILIRUBIN TOTAL 0.2 0.2 - 1.3 mg/dL 02/20/2018 4:35 PM [facility] ALKALINE PHOSPHATASE 79 40 - 150 U/L 02/20/2018 4:35 PM [facility] AST 20 0 - 33 U/L 02/20/2018 4:35 PM [facility] ALT 20 0 - 33 U/L 02/20/2018 4:35 PM [facility] GFR >60 >=60 mL/min/1.7 3 sq meter 02/20/2018 4:35 PM [facility] Comment: eGFR has not been validated for [...] 3 sq meter 02/20/2018 4:35 PM CDT [facility] LABORATORY [facility] ANION GAP 13 8 - 16 mmol/L 02/20/2018 4:35 PM CDT [facility] Blood Venipuncture / Unknown 02/20/2018 4:00 PM CDT 02/20/2018 4:03 PM CDT Irvin Cho MD CHEMISTRY ORDERABLES Performing Organization Address City/[facility] Co de Phone Number [id number] [place] [address] * PROTIME-INR (02/20/2018 4:00 PM CDT) PROTIME 13.1 11.5 - 14.7 Seconds 02/20/2018 4:26 PM CDT [facility] INR 1.0 0.9 - 1.1 02/20/2018 4:26 PM CDT [facility] Blood Venipuncture / Unknown 02/20/2018 4:00 PM CDT 02/20/2018 4:03 PM CDT Irvin Cho MD HEMATOLOGY ORDERABLE S Performing Organization Address City/[facility]/ZIP Co de Phone Number [facility] [id number] [place] [address] * PTT (02/20/2018 4:00 PM CDT) PTT 29.2 23.1 - 37.1 seconds 02/20/2018 4:26 PM CDT [facility] Blood Venipuncture / Unknown 02/20/2018 4:00 PM CDT 02/20/2018 4:03 PM CDT Irvin Cho MD HEMATOLOGY ORDERABLE S [facility] [id number] [place] [address] * (ABNORMAL) SEDIMENTATION RATE (02/20/2018 4:00 PM CDT) Pathologist [facility] ESR (SEDIMENTATION RATE) 46(H) 0 - 30 mm/Hr 02/20/2018 4:19 PM CDT [facility] Blood Venipuncture / Unknown 02/20/2018 4:00 PM CDT 02/20/2018 4:03 PM CDT Irvin Cho MD HEMATOLOGY ORDERABLE S Performing Organization Address City/[facility]/ZIP Co de Phone Number [facility]# [id number] [place] [address] * (ABNORMAL) CBC WITH DIFFERENTIAL (02/20/2018 4:00 PM CDT) Pathologist [facility] WBC 2.9(L) 4.5 - 10.5 K/uL 02/20/2018 4:09 PM CDT [facility] RBC 3.92 3.90 - 4.90 M/uL 02/20/2018 4:09 PM CDT [facility] LABORATORY [facility] HEMOGLOBIN 11.8 11.8 - 14.8 g/dL 02/20/2018 4:09 PM CDT [facility] HEMATOCRIT 34.9(L) 35.5 - 44.0 % 02/20/2018 4:09 PM CDT [facility] MCV 89.1 82.0 - 99.0 fL 02/20/2018 4:09 PM CDT [facility] MCH 30.1 27.8 - 34.5 pg 02/20/2018 4:09 PM CDT [facility] MCHC 33.8 32.5 - 35.5 g/dL 02/20/2018 4:09 PM T [facility] LABORATORY [facility] RDW 14.2 11.5 - 14.5 % 02/20/2018 4:09 PM T [facility] LABORATORY [facility] PLATELETS 138(L) 160 - 420 K/uL 02/20/2018 4:09 PM T [facility] LABORATORY [facility] MPV 7.4(L) 8.7 - 12.7 fL 02/20/2018 4:09 PM T [facility] NEUTROPHILS 84(H) 45 - 70 % 02/20/2018 4:09 PM T [facility] LYMPHOCYTES 11(L) 16 - 45 % 02/20/2018 4:09 PM T [facility] MONOCYTES 2(L) 3 - 13 % 02/20/2018 4:09 PM T [facility] EOSINOPHILS 1 0 - 7 % 02/20/2018 4:09 PM CDT [facility] BASOPHILS 1 0 - 2 % 02/20/2018 4:09 PM T [facility] IMMATURE GRANULOCYTES 0 0 - 5 % 02/20/2018 4:09 PM T [facility] NEUTROPHIL ABSOLUTE 2.50 1.90 - 7.00 K/uL 02/20/2018 4:09 PM T [facility] LYMPHOCYTE ABSOLUTE 0.30 K/uL 02/20/2018 4:09 PM T [facility] MONOCYTE ABSOLUTE 0.10 K/uL 018 4:09 PM T [facility] EOSINOPHIL ABSOLUTE 0.00 0.00 - 0.70 K/uL 02/20/2018 4:09 PM CDT [facility] BASOPHILS ABSOLUTE 0.00 K/uL 02/20/2018 4:09 PM T [facility] IMMATURE GRANULOCYTES ABSOLUTE 0.00 K/uL 02/20/2018 4:09 PM T [facility] Blood Venipuncture / Unknown 02/20/2018 4:00 PM CDT 02/20/2018 4:03 PM CDT Irvin Cho MD HEMATOLOGY ORDERABLE S Performing Organization Address City/[facility]/ZIP Co de Phone Number [facility] CLIA# [id number] [address] [place] [address] * TYPE AND SCREEN (02/20/2018 4:00 PM CDT) ABO GROUP O 02/20/2018 4:00 PM CDT [facility] RH (D) TYPE Positive 02/20/2018 4:00 PM CDT [facility] ANTIBODY SCREEN Negative 02/20/2018 4:00 PM CDT [facility] Blood Venipuncture / Unknown 02/20/2018 4:00 PM CDT 02/20/2018 4:03 PM CDT Irvin Cho MD BLOOD BANK ORDERABLE S Performing Organization Address City/[facility]/ZIP Co de Phone Number [facility] CLIA# [id number] [place] [address] * CT HEAD WO CONTRAST STROKE PROTOCOL (02/20/2018 3:56 PM CDT) Anatomical Region Laterality Modality Head Computed Tomogra phy 02/20/2018 3:57 PM CDT Impressions 02/20/2018 4:53 PM CDT IMPRESSION: Normal. DICTATION LOCATION: Location [address] [place] [address] Narrative 02/20/2018 4:53 PM CDT COMPUTED TOMOGRAPHY [...] lesion. IMPRESSION: Normal. DICTATION LOCATION: Location - [facility] Protocol [facility] Emergency MD CT ORDERABLES documented in this [...] Routine 0859 (Given - Provid er: Galilea Ciufentes RN) heparin, porcine lock flush (pf) 100 [...] Minutes, Routine 1615 (New Bag - Provider: Patricia Blue, RT)1646 (Stopped - Provider: Saloni Blake [...] RN) documented in this encounter Care Teams Oil Laboratory Analyst Relationship Specialty Start Date End Date Hugo Smith MD PCP - General Family Practice 02/20/18 documented as of this encounter
--- OUTSIDE RECORDS SUMMARY | 2024-04-24 14:44 | XMS_ITS | Encounter Summary ---
Author Organization [facility] Healthcare Address [address] [place] [address] Care Team Providers Care Stringing Machine Tender Name Role Phone Aft, Kianna Machado MD PhD Unavailable [phone] Santiago Gilbert MD Unavailable [phone] Abbi Ventura MD Unavailable Montse Thompson MD Unavailable [phone] Lela Hardy MD PhD Unavailable Trena Obando MD Unavailable [phone] Dat Benito DO Primary Care Provider [phone] Encounter Details Date Type Department Care Team (Late st Contact Info) Description 02/05/2024 2:45 PM CDT Lab [address] [address] Malignant neoplasm of upper-inner quadrant [...] on file Legal Sex Female 1:06 AM 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 Gender Identity Not on file [...] CDT 02/05/2024 3:00 PM CDT us Abbi Venutra MD LAB BLOOD ORDERABLES Final Resul t [facility] Department [place] [address] * Differential, auto (02/05/2024 3:00 PM CDT) Neutrophil abs 6.2 1.5 - 6.5 K/cumm Comment:Testing performed by : [facility], [address] [place] [id number] Imm gran abs 0.0 0.0 - 0.1 K/cumm [facility] Lymphocyte abs 1.8 0.8 - 3.3 K/cumm [facility] Monocyte abs 0.5 0.2 - 0.8 K/cumm [facility] Eosinophil abs 0.4 0.0 - 0.5 K/cumm [facility] Basophil abs 0.1 0.0 - 0.1 K/cumm [facility] Neutrophil pct 69.5 % [facility] Comment: Interpretive Data Percent cell count reference ranges are not reported, since discordance with absolute values may lead to misinterpretation of CBC data. Current Interpretive Data was last revised on 2017. Imm gran pct 0.3 % [facility] Comment: Interpretive Data Percent cell count reference ranges are not reported, since discordance with absolute values may lead to misinterpretation of CBC data. Current Interpretive Data was last revised on 2017. Lymphocyte pct 19.7 % [facility] Comment: Interpretive Data Percent cell count reference ranges are not reported, since discordance with absolute values may lead to misinterpretation of CBC data. Current Interpretive Data was last revised on 2017. Monocyte pct 5.5 % [facility] Comment: Interpretive Data Percent cell count reference ranges are not reported, since discordance with absolute values may lead to misinterpretation of CBC data. Current Interpretive Data was last revised on 2017. Eosinophil pct 4.1 % [facility] Comment: Interpretive Data Percent cell count reference ranges are not reported, since discordance with absolute values may lead to misinterpretation of CBC data. Current Interpretive Data was last revised on 2017. Basophil pct 0.9 % [facility] Comment: Interpretive Data Percent cell count reference ranges are not reported, since discordance with absolute values may lead to misinterpretation of CBC data. Current Interpretive Data was last revised on 2017. Blood 02/05/2024 3:00 PM CDT 02/05/2024 3:00 PM CDT us Abbi Ventura MD LAB BLOOD ORDERABLES Final Resul t [facility] Department [place] [address] * (ABNORMAL) CBC with auto differential (02/05/2024 3:00 PM CDT) [facility] WBC 9.0 3.8 - 9.9 K/cumm Comment:Testing performed by : [facility], [address] [place] [address] Hgb 11.1(L) 11.9 - 15.5 g/dL [facility] Comment:Testing performed by : [facility], [address] [place] [address] Hct 35.0(L) 35.6 - 45.5 % [facility] Comment:Testing performed by : [address] [address] Plt 179 150 - 400 K/cumm [facility] Comment:Testing performed by : [address] [address] MPV 9.6 9.1 - 12.3 fL [facility] RBC 3.85(L) 3.90 - 5.20 M/cumm [facility] MCV 90.9 81.3 - 96.4 fL [facility] MCH 28.8 27.1 - 33.3 pg [facility] MCHC 31.7(L) 32.3 - 35.7 g/dL [facility] RDW CV 13.6 11.1 - 14.9 % [facility] RDW SD 45.3 35.7 - 48.1 fL [facility] NRBC abs 0.00 0.00 - 0.01 K/cumm [facility] Blood 02/05/2024 3:00 PM CDT 02/05/2024 3:00 PM CDT us Abbi Ventura MD LAB BLOOD ORDERABLES Final Resul t [facility] Department [place] [address] * CA 125 (02/05/2024 3:00 PM CDT) [facility] CA 125 ag 8.0 0.0 - 38.1 units/mL Comment: Interpretive Data The Bo CA 125 assay procedure was used. Results from different manufacturers or methods may not be comparable. Serial testing should be performed using the same method. Blood 02/05/2024 3:00 PM CDT 02/05/2024 7:10 PM CDT Abbi Ventura MD LAB BLOOD ORDERABLES Final Resul t Performing Organization Address [facility] [place] [address] * CEA (02/05/2024 3:00 PM CDT) [facility] CEA 1.3 <=5.0 ng/mL Comment: Interpretive [...] ORDERABLES Final Resul t Performing Organization Address [facility] [place] [address] * (ABNORMAL) Comprehensive metabolic panel (02/05/2024 3:00 PM CDT) [facility] Sodium 139 135 - 145 mmol/L Comment:Testing performed by : [facility], [address] [place] [address] Potassium, pl 4.0 3.3 - 4.9 mmol/L [facility] Chloride 109 97 - 110 mmol/L [facility] CO2 24 22 - 32 mmol/L [facility] Anion gap 6 2 - 15 mmol/L [facility] BUN 24 6 - 25 mg/dL [facility] Creatinine 1.69(H) 0.60 - 1.10 mg/dL [facility] Glucose 105 70 - 199 mg/dL [facility] Comment: Interpretive Data Fasting glucose >/= [...] 2022. Calcium 9.1 8.5 - 10.3 mg/dL [facility] Bilirubin, total 0.4 0.1 - 1.2 mg/dL [facility] Protein, pl 7.0 6.5 - 8.5 g/dL [facility] Albumin 4.5 3.5 - 5.0 g/dL [facility] Alk phos 72 40 - 130 Units/L [facility] ALT 11 7 - 45 Units/L [facility] AST 18 10 - 45 Units/L [facility] Blood 02/05/2024 3:00 PM CDT 02/05/2024 3:00 PM CDT us Abbi Ventura MD LAB BLOOD ORDERABLES Final Resul t [facility] Department [place] [address] documented in this encounter Visit Diagnoses Diagnosis Malignant neoplasm of upper-inner quadrant of left breast in female, 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) Malignant neoplasm of descending colon documented in this encounter Orders Appointment Requests Count Last Ordered Date Fi rst Ordered Date ONCBCN LAB APPOINTMENT 1 02/05/2024 documented in this encounter Care Teams Stringing Machine Tender Relationship Specialty Start Date End Date Dat Benito DO [address] [place] [address] PCP - General Internal Medicine 09/28/21 Aft, Kianna Machado MD PhD [address] [place] [address] Surgeon Surgical Oncology 11/22/17 Santiago Gilbert MD [address] [place] [address] Department Manager Gastroenterology 11/22/17 Abbi Ventura MD [address] [facility] [address] [place] [address] Medical Oncologist/Supervisor Cloth Winding Medical Oncology 12/03/18 Montse Thompson MD [address] [facility] [address] [place] [address] Consulting Physician Gynecologic Oncology 12/03/18 Lela Hardy MD PhD [address] [facility] [address] [place] [address] Radiation Oncologist Radiation Oncology 12/23/18 Trena Obando MD [address] [place] [address] Consulting Physician Neurology 09/18/21 documented as of this encounter
--- OUTSIDE RECORDS SUMMARY | 2024-04-24 14:44 | XMS_ITS | Encounter Summary ---
Author Organization [facility] Address [address] [place] [address] Phone Care Team Providers Care Social Work Job Titles Name Role Phone Aft, Kianna Machado MD PhD Unavailable [phone] Santiago Gilbert MD Unavailable [phone] Abbi Ventura MD Unavailable Montse Thomspon MD Unavailable [phone] Lela Hardy MD PhD Unavailable [phone] Trena Obando MD Unavailable [phone] Dat Benito DO Primary Care Provider [phone] Encounter Details Date Type Department Care Team (Late st Contact Info) Description 02/25/[address] [address] Uriel Corral Social History Tobacco Use Types [...] on file Legal 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 Gender Identity Not on file Sexual Orientation [...] in this encounter Care Teams Social Work Job Titles Relationship Specialty Start Date End Date Dat Benito DO [address] [place] [address] PCP - General Internal Medicine 09/28/21 Aft, Kianna Machado MD PhD [address] [place] [address] Surgeon Surgical Oncology 11/22/17 Santiago Gilbert MD [address] [place], [place] [id number] Card Table Attendant Gastroenterology 11/22/17 Abbi Ventura MD [address] [facility] [address] [place] [address] Medical Oncologist/Pig Casting Machine Operator Medical Oncology 12/03/18 Montse Thompson MD [address] [facility] [address] [place] [address] Consulting Physician Gynecologic Oncology 12/03/18 Lela Hardy MD PhD [address] [facility] [address] [place], [place] [id number] Radiation Oncologist Radiation Oncology 12/23/18 Trena Obando MD [address] [place], [place] [id number] Consulting Physician Neurology 09/18/21 documented as of this encounter
--- OUTSIDE RECORDS SUMMARY | 2024-04-24 14:44 | XMS_ITS | Clinical Summary ---
Author Organization [facility] Address [address] [place] [address] Care Team Providers Care Motorcycle Fabricator Name Role Phone Aft, Kianna Machado MD PhD Unavailable [phone] Santiago Gilbert MD Unavailable [phone] Abbi Ventura MD Unavailable Montse Thompson MD Unavailable [phone] Lela Hardy MD PhD Unavailable [phone] Trena Obando MD Unavailable [phone] Dat Benito DO Primary Care Provider [phone] Allergies Active Allergy Reactions Criticality Noted Date [...] Cancer Staging:Pathologic:Stage IIA(pT2, pN0(sn), cM0, G3, ER-, NE-, HER2-) - Signed by Roger Dorsey MD on 12/23/2018 Clinical:Stage IIB(cT2, cN0, cM0, G3, ER-, NE-, HER2-) - Signed by Lela Hardy MD PhD on 01/01/2019 Asthma-COPD overlap syndrome (CMS/HCC) Asthma Resolved Problems Problem Noted Date Diagnosed Date Resolved Date 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 Encounters Date Type Department Care Team Description 02/25/2024 Telephone [facility] Oncology [address] [place] [address] Uriel Corral 02/19/2024 1:43 PM CDT - 02/19/2024 11:59 PM CDT Hospital Encounter [facility] [address] [place] [address] Malignant neoplasm of upper-inner quadrant of left breast in female, estrogen receptor negative (HCC); Chest wall pain Discharge Disposition: Discharge to home or self care 02/05/2024 3:30 PM CDT Office Visit [facility] Oncology [address] [place] [address] Abbi Ventura MD 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) (Primary Dx); Malignant neoplasm of upper-inner quadrant of left breast in female, estrogen receptor negative (HCC); Chest wall pain 02/05/2024 2:45 PM CDT Lab [address] [address] Malignant neoplasm of upper-inner quadrant of left [...] Breast Needle Localization partial mastectomy (L), Biopsy [place] Lymph Node With Lymphoscintigraphy (L), Insertion Port [...] on file Legal Sex Female 1:06 AM PLUNKET NURSE Gender Identity Not on file Sexual [...] cm (5' 9 ) 06/27/2023 12:52 PM PLUNKET NURSE Body Mass Index 31.75 06/27/2023 12:52 PM PLUNKET NURSE Plan of Treatment Health Maintenance Due Date [...] Discontinued 09/18/2021 Medical Devices Implanted Type Area Informatics Nurse Specialist Device Identifier Shelf Expiration Date Model / Serial / Lot [employer] [id number] Powerport Clearvue Airguard 8fr 1 Lumen Lightweight Intermediate Latex Free - [id number] Implanted:Qty: 1 on 01/14/2018 by Aft, Kianna Machado MD PhD at [facility] Other - see comments Right: Chest Wall [employer] [id number] 05/05/2019 [id number] / / [id number] Description:Power port-a-cat h inserted into the right [...] by: Josselyn Mancera M.D. Abbi Ventura MD [facility] [place]ED[place] Final Result * MRI Chest [...] BLOOD ORDERABLES Final Resul t [facility] [place] [address] * Differential, auto (02/05/2024 3:00 PM CDT) Neutrophil abs 6.2 1.5 - 6.5 K/cumm Comment:Testing performed by : [facility], [address] [place] [address] Imm gran abs 0.0 0.0 - 0.1 K/cumm [facility] Lymphocyte abs 1.8 0.8 - 3.3 K/cumm [facility] Monocyte abs 0.5 0.2 - 0.8 K/cumm [facility] Eosinophil abs 0.4 0.0 - 0.5 K/cumm [facility] Basophil abs 0.1 0.0 - 0.1 K/cumm [facility] Neutrophil pct 69.5 % [facility] Comment: Interpretive Data Percent cell count reference ranges are not reported, since discordance with absolute values may lead to misinterpretation of CBC data. Current Interpretive Data was last revised on 2017. Imm gran pct 0.3 % [facility] Comment: Interpretive Data Percent cell count reference ranges are not reported, since discordance with absolute values may lead to misinterpretation of CBC data. Current Interpretive Data was last revised on 2017. Lymphocyte pct 19.7 % [facility] Comment: Interpretive Data Percent cell count reference ranges are not reported, since discordance with absolute values may lead to misinterpretation of CBC data. Current Interpretive Data was last revised on 2017. Monocyte pct 5.5 % [facility] Comment: Interpretive Data Percent cell count reference ranges are not reported, since discordance with absolute values may lead to misinterpretation of CBC data. Current Interpretive Data was last revised on 2017. Eosinophil pct 4.1 % [facility] Comment: Interpretive Data [...] Final Resul t [facility] [place] [address] * (ABNORMAL) CBC with auto differential (02/05/2024 3:00 PM CDT) Pathologist [facility] WBC 9.0 3.8 - 9.9 K/cumm Comment:Testing performed by : [address] [address] Hgb 11.1(L) 11.9 - 15.5 g/dL [facility] Comment:Testing performed by : [address] [address] Hct 35.0(L) 35.6 - 45.5 % [facility] Comment:Testing performed by : [address] [address] Plt 179 150 - 400 K/cumm [facility] Comment:Testing performed by : [address] [address] MPV 9.6 9.1 - 12.3 fL [facility] RBC 3.85(L) 3.90 - 5.20 M/cumm [facility] MCV 90.9 81.3 - 96.4 fL [facility] MCH 28.8 27.1 - 33.3 pg [facility] MCHC 31.7(L) 32.3 - 35.7 g/dL [facility] RDW CV 13.6 11.1 - 14.9 % [facility] RDW SD 45.3 35.7 - 48.1 fL [facility] NRBC abs 0.00 0.00 - 0.01 K/cumm [facility] Blood 02/05/2024 3:00 PM CDT 02/05/2024 3:00 PM CDT us Abbi Ventura MD LAB BLOOD ORDERABLES Final Resul t Performing Organization Address [facility] Co de Phone Number [facility] Department [place] [address] * CA 125 (02/05/2024 3:00 PM CDT) [...] Final Resul t Performing Organization Address [facility] de Phone Number [facility] [place] [address] * CEA (02/05/2024 3:00 PM CDT) CEA [...] ORDERABLES Final Resul t Performing Organization Address City/[facility] Co de Phone Number [facility] [place] [address] * (ABNORMAL) Comprehensive metabolic panel (02/05/2024 3:00 PM CDT) Sodium 139 135 - 145 mmol/L Comment:Testing performed by : [facility], [address] [facility] [address] Potassium, pl 4.0 3.3 - 4.9 mmol/L [facility] Chloride 109 97 - 110 mmol/L [facility] CO2 24 22 - 32 mmol/L [facility] Anion gap 6 2 - 15 mmol/L [facility] BUN 24 6 - 25 mg/dL [facility] Creatinine 1.69(H) 0.60 - 1.10 mg/dL [facility] Glucose 105 70 - 199 mg/dL [facility] [...] 2022. Calcium 9.1 8.5 - 10.3 mg/dL [facility] Bilirubin, total 0.4 0.1 - 1.2 mg/dL [facility] Protein, pl 7.0 6.5 - 8.5 g/dL [facility] Albumin 4.5 3.5 - 5.0 g/dL [facility] Alk phos 72 40 - 130 Units/L [facility] ALT 11 7 - 45 Units/L [facility] AST 18 10 - 45 Units/L [facility] Blood 02/05/2024 3:00 PM CDT 02/05/2024 3:00 PM CDT Abbi Ventura MD LAB BLOOD ORDERABLES Final Resul t [facility] [place] [address] * Screening Mammogram Bilateral W Mathew (09/28/2021 2:39 PM CDT) Anatomical Region Laterality Modality Breast Bilateral Mammography Narrative 09/29/2021 9:59 AM CDT Mammogram Technique: Bilateral Digital Breast Tomosynthesis, Bilateral C-view 2D Screening mammogram. ??Views obtained: ??bilateral craniocaudal and bilateral mediolateral oblique. ??Computer Aided Detection was performed. Mammogram Findings: The present examination has been compared to prior imaging studies performed at [facility] on 11/05/2017, 08/11/2018 and 10/06/2020. There are scattered areas of fibroglandular density. There are post breast conservation therapy changes in the left breast. There is no suspicious abnormality in the right breast. Impression: Post breast conservation therapy changes in the left breast are benign. Annual screening mammography is recommended. OVERALL FINAL ASSESSMENT: BI-RADS CATEGORY 2: ??Benign. Procedure Note Yonaa Ash MD - 09/29/2021 Mammogram Technique: Bilateral Digital Breast Tomosynthesis, Bilateral C-view 2D Screening mammogram. Views obtained: bilateral craniocaudal and bilateral mediolateral oblique. Computer Aided Detection was performed. Mammogram Findings: The present examination has been compared to prior imaging studies performed at [facility] on 11/05/2017, 08/11/2018 and 10/06/2020. There [...] 09/18/2021 5:36 PM CDT Narrative PATHOLOGY [facility] - 09/22/2021 5:14 PM CDT EPIC results best viewed via link to PDF [facility] Galilea Muñiz [facility] [place] [address] Note to Patients: This report may contain [...] Gender: ??F : ??1955 (Age: 66) Address: ??[address] [place] [address] ??[address] [facility] #: ??[id number] Service: ??SOLUTIONS SALES CONSULTANT Location: ?? Patient Type: ??[facility] SPECIMEN Taken: ??09/18/2021 Received: ??09/18/2021 Accessioned: [...] 70. ??This HPV test was performed at [facility] in [place], [place] utilizing the Gen-Probe Aptima assay. This specimen has been rescreened in accordance with this laboratory's Foster Care Worker Program. jxh/09/22/2021 17:14 IMTIAZ Gray(ASCP) Report Electronically Reviewed and Signed Out By PATTIE Montana(ASCP), [facility] 09/22/2021 17:14:55 Cervicovaginal Cytology (Pap Test) [...] Pap. The HPV test was performed by [facility], [address] [place] [address]. Report Images and scanned documents, if included only viewable in PDF version The performance characteristics of some immunohistochemical stains, in-situ hybridization and fluorescence in-situ hybridization tests and immunophenotyping by flow cytometry cited in this report (if any) were determined by the Surgical Pathology Department at [facility] as part of an ongoing manager quality systems program and in compliance with federally mandated [...] determined by the Surgical Pathology Department of [facility]. ??It has not been cleared or approved by the U. S. Food and Drug Administration. Adela Chan NP LAB CYTOLOGY ORDERABLES Bethanie wesley Result PATHOLOGY [facility] 3rd Floor [place], [place] [phone] from Last 3 Months or Most Recently Relevant to Health Maintenance [place] [address] [facility] INSURANCE CHOICE [place]F [place] [facility] INSURANCE Advance Directives For more information, please contact: [phone] * Full Code (Latest Code Status on [...] 1:25 PM 02/14/2019 4:03 PM Care Teams Motorcycle Fabricator Relationship Specialty Start Date End Date Dat Benito DO [address] [place] [address] PCP - General Internal Medicine 09/28/21 Aft, Kianna Machado MD PhD [address] [place] [address] Surgeon Surgical Oncology 11/22/17 Santiago Gilbert MD [address] [place] [address] Cook Vegetable Gastroenterology 11/22/17 Abbi Ventura MD [address] [facility] [address] [place] [address] Medical Oncologist/Ob Tech Medical Oncology 12/03/18 Montse Thompson MD [address] [facility] [address] [place] [address] Consulting Physician Gynecologic Oncology 12/03/18 Lela Hardy MD PhD [address] [facility] [address] [place] [address] Radiation Oncologist Radiation Oncology 12/23/18 Trena Obando MD [address] [place] [address] Consulting Physician Neurology 09/18/21
--- OUTSIDE RECORDS SUMMARY | 2024-04-24 14:44 | XMS_ITS | Encounter Summary ---
Author Organization [facility] Address [address] [place] [address] Care Team Providers Care Lead Solutions Architect Name Role Phone Aft, Kianna Machado MD PhD Unavailable [phone] Santiago Gilbert MD Unavailable [phone] Abbi Ventura MD Unavailable Montse Thompson MD Unavailable [phone] Lela Hardy MD PhD Unavailable [phone] Trena Obando MD Unavailable [phone] Dat Benito DO Primary Care Provider [phone] Encounter Details Date Type Department Care Team (Late st Contact Info) Description 08/01/2023 Orders Only [facility] Radiology [address] [address] Gilberto [place] RN Social History Tobacco Use [...] on file 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 Gender Identity Not on file Sexual Orientation Not on file documented as of this encounter Plan of Treatment Not on file documented as of this encounter Visit Diagnoses Not on filedocumented in this encounter Care Teams Lead Solutions Architect Relationship Specialty Start Date End Date Dat Benito DO [address] [place] [address] PCP - General Internal Medicine 09/28/21 Aft, Kianna Machado MD PhD [address] [place] [address] Surgeon Surgical Oncology 11/22/17 Santiago Gilbert MD [address] [place] [address] Salvager Gastroenterology 11/22/17 Abbi Ventura MD [address] [place] [address] [address] [place] [address] Medical Oncologist/Hose Mender Medical Oncology 12/03/18 Montse Thompson MD [address] [place] [address] [address] [place] [address] Consulting Physician Gynecologic Oncology 12/03/18 Lela Hardy MD PhD [address] [place] [address] [address] [place] [address] Radiation Oncologist Radiation Oncology 12/23/18 Trena Obando MD [address] [place] [address] Consulting Physician Neurology 09/18/21 documented as of this encounter
--- OUTSIDE RECORDS SUMMARY | 2024-04-24 14:44 | XMS_ITS | Clinical Summary ---
Author Organization [facility] Address [address] [place] [address] Phone Care Team Providers Care Breaker Engineer Name Role Phone Ravi Smith MD Primary Care Provider [phone] Allergies Active Allergy Reactions Criticality Noted Date [...] Advance Directives For more information, please contact: [phone] * Full Code (Latest Code Status on File) Date Activated Date Inactivated Comments 02/20/2018 7:22 PM 02/21/2018 8:31 PM Care Teams Breaker Engineer Relationship Specialty Start Date End Date Ravi Smith MD PCP - General Family Practice 02/20/18
--- OUTSIDE RECORDS SUMMARY | 2024-04-24 14:44 | XMS_ITS ---
Author Organization [facility] Address [facility] [place] [address] Care Team Providers Care Correction Officer Reformatory Name Role Phone Aft, Kianna Machado MD PhD Unavailable [phone] Santiago Gilbert MD Unavailable Abbi Ventura MD Unavailable Montse Thompson MD Unavailable [phone] Lela Hardy MD PhD Unavailable [phone] Trena Obando MD Unavailable [phone] Dat Benito DO Primary Care Provider [phone] Active Problems Problem Noted Date Diagnosed Date [...] from the original note were not included. [place] [phone] This Survivorship Care Plan is a cancer [...] Information: Primary Care Physician Ravi Smith MD [phone] Surgeon Dmitry Sanderson MD [phone] Medical Oncologist Abbi Ventura MD [phone] Human Resources Benefits Manager Santiago Gilbert MD [phone] Other Providers Treatment Summary Cancer Diagnosis Information [...] Medical oncology and Surgeon if both are [facility] Physicians) History and Physical every 3 months [...] Help learning to eat healthier, call the waste disposal plant operator at: [facility] . Have an active lifestyle, strive for [...] physician. Resources you may be interested in: [facility] http://www.[facility]/ [facility] Information Center 1st floor of [facility] [phone]. Computer access, educational material, counseling services (FREE) United Ostomy Association: the place for ostomy resources, advocacy, and support. www.ostomy.org RUSTY Castillo, SEMAJ, Nurse practitioner and ostomy nurse at [facility] can be reached at [phone] Online Resources: www.cancer.net; http://www.cdc.gov/cancer/survivorship; http://www.cancercare.org/tagged/post-treatment_survivorship; http://www.cancer.gov/about-cancer/coping/survivorship Springboard Beyond Cancer: https://survivorship.cancer.gov/ an online tool for cancer survivors andcaregivers created by the [place] Cancer Society and the National Cancer [place]. 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 [address] [address] This Survivorship Care Plan is a cancer [...] Information: Primary Care Physician Ravi Smith MD [phone] Surgeon Kianna Bunch MD PhD [phone] Radiation Oncologist Lela Hardy MD PhD Medical Oncologist Abbi Ventura MD [phone] Other Providers SURVEYOR GEOPHYSICAL PROSPECTING oncology Montse Thompson MD [phone] Treatment Summary Cancer Diagnosis Information Diagnosis Malignant neoplasm of upper-inner quadrant of left breast in female, 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) Diagnosis date 11/12/2017 Staging information Stage IIA Estrogen receptor: Negative Progesterone receptor: Negative HER-2: Negative Treatment Completed Surgery Surgery date 01-14-2018 Surgical procedure / location / findings Biopsy Breast Needle Localization partial mastectomy (L), Biopsy [place] Lymph Node With Lymphoscintigraphy (L), Insertion Port [...] breast cancer could run in the family: Sabianist heritage History of ovarian cancer in the [...] year 5 Mammogram for remaining breast(s) Yearly ERP PM: Pap/pelvic exam (woman only) As indicated by [...] Help learning to eat healthier, call the waste disposal plant operator at: [facility] . Have an active lifestyle, strive for [...] man. Resources you may be interested in: [facility] National [facility] [place] [facility] http://www.[facility]/ [facility] Information Center 1st floor of [facility] [phone]. Computer access, educational material, counseling services (FREE) Cancer Resources: www.cancer.net [place] Disabilities Act: The U.S. Department of Justice provides information about the Americans with Disabilities Act (ADA). Toll free number http://www.ada.gov/ Occupational Therapy at [facility]. Improve memory and thinking following chemotherapy. Improve your performance at home, work and in the community. or Toll free www.ot.[facility]/patients Managing your weight after a cancer diagnosis: http://www.cancer.net/sites/cancer.net/files/weight_after_cancer_diagnosis.pdf National Coalition for Cancer Survivorship: http://www.canceradvocacy.org/ [place] Cancer Society Cancer Survivors Network: http://csn.cancer.org/ Springboard Beyond Cancer: https://survivorship.cancer.gov/ an online tool for cancer survivors andcaregivers created by the [place] Cancer Society and the National Cancer [place]. 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
--- OUTSIDE RECORDS SUMMARY | 2024-04-24 14:44 | XMS_ITS | Encounter Summary ---
Author Organization [facility] Address [address] [place] [address] Phone Care Team Providers Care Tacker Elastic Band Name Role Phone Aft, Kianna Machado MD PhD Unavailable [phone] Santiago Gilbert MD Unavailable [phone] Abbi Ventura MD Unavailable Montse Thompson MD Unavailable [phone] Lela Hardy MD PhD Unavailable [phone] Trena Obando MD Unavailable [phone] Dat Benito DO Primary Care Provider [phone] Encounter Details Date Type Department Care Team (Late st Contact Info) Description 10/08/2023 Telephone [facility] Oncology [address] [place] [phone] Rosa Alcantar, 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 Gender Identity Not on file Sexual [...] on filedocumented in this encounter Care Teams Tacker Elastic Band Relationship Specialty Start Date End Date Dat Benito DO [address] [place] [address] PCP - General Internal Medicine 09/28/21 Aft, Kianna Machado MD PhD [address] [place] [address] Surgeon Surgical Oncology 11/22/17 Santiago Gilbert MD [address] [place] [address] Sales Technician Gastroenterology 11/22/17 Abbi Ventura MD [address] [place] [address] Medical Oncologist/Maple Syrup Maker Medical Oncology 12/03/18 Montse Thompson MD [address] [place] [address] Consulting Physician Gynecologic Oncology 12/03/18 Lela Hardy MD PhD [address] [place] [address] Radiation Oncologist Radiation Oncology 12/23/18 Trena Obando MD [address] [place] [address] Consulting Physician Neurology 09/18/21 documented as of this encounter
--- OUTSIDE RECORDS SUMMARY | 2024-04-24 14:44 | XMS_ITS | Encounter Summary ---
Author Organization [facility] Healthcare Address [address] [place] [address] Care Team Providers Care Teacher Tutor Name Role Phone Aft, Kianna Machado MD PhD Unavailable [phone] Santiago Gilbert MD Unavailable [phone] Abbi Ventura MD Unavailable Montse Thompson MD Unavailable [phone] Lela Hardy MD PhD Unavailable [phone] Trena Obando MD Unavailable [phone] Dat Benito DO Primary Care Provider [phone] Encounter Details Date Type Department Care Team (Late st Contact Info) Description 08/01/2023 Telephone [facility] Radiology [address] [address] Sayra Ariza RN Social History Tobacco Use [...] on file Legal 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 Gender Identity Not on file Sexual Orientation [...] on filedocumented in this encounter Care Teams Teacher Tutor Relationship Specialty Start Date End Date Dat Benito DO [address] [place] [address] PCP - General Internal Medicine 09/28/21 Aft, Kianna Machado MD PhD [address] [place] [address] Surgeon Surgical Oncology 11/22/17 Santiago Gilbert MD [address] [place] [address] Home Energy Inspector Gastroenterology 11/22/17 Abbi Ventura MD [address] [facility] [address] [place] [address] Medical Oncologist/Production Expediter Medical Oncology 12/03/18 Montse Thompson MD [address] [facility] [address] [place] [address] Consulting Physician Gynecologic Oncology 12/03/18 Lela Hardy MD PhD [address] [facility] [address] [place], [place] [address] Radiation Oncologist Radiation Oncology 12/23/18 Trena Obando MD [address] [place], [place] [address] Consulting Physician Neurology 09/18/21 documented as of this encounter
--- OUTSIDE RECORDS SUMMARY | 2024-04-24 14:44 | XMS_ITS | Encounter Summary ---
Author Organization [facility] Address [address] [place] [address] Care Team Providers Care Apartment Maintenance Technician Name Role Phone Ravi Smith MD Primary Care Provider [phone] Encounter Details Date Type Department Care Team (Late st Contact Info) Description 12/11/2006 Outpatient Historical [facility] AMOS De Souza, Mirella Solorzano MD [address] [place] [address] [address] [id number] Diffuse Cystic Mastopathy (Primary Dx) Social History [...] Primary documented in this encounter Care Teams Apartment Maintenance Technician Relationship Specialty Start Date End Date Ravi Smith MD PCP - General Family Practice 02/20/18 documented as of this encounter
--- OUTSIDE RECORDS SUMMARY | 2024-04-24 14:44 | XMS_ITS | Encounter Summary ---
Author Organization [facility] Healthcare Address [address] [place] [address] Care Team Providers Care General Assembler Name Role Phone Aft, Kianna Machado MD PhD Unavailable [phone] Santiago Gilbert MD Unavailable [phone] Abbi Ventura MD Unavailable Montse Thompson MD Unavailable [phone] Lela Hardy MD PhD Unavailable [phone] Trena Obando MD Unavailable [phone] Dat Benito DO Primary Care Provider [phone] Encounter Details Date Type Department Care Team (Late st Contact Info) Description 07/29/2023 Telephone [facility] Radiology [address] [place] [address] Emma Cano, RN Social History Tobacco Use [...] file 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 Gender Identity Not on file Sexual [...] filedocumented in this encounter Care Teams General Assembler Relationship Specialty Start Date End Date Dat Benito DO [address] [place] [address] PCP - General Internal Medicine 09/28/21 Aft, Kianna Machado MD PhD [address] [place] [address] Surgeon Surgical Oncology 11/22/17 Santiago Gilbert MD [address] [place] [address] Spray Painter Gastroenterology 11/22/17 Abbi Ventura MD [address] [place] [address] [address] [place] [address] Medical Oncologist/Rn Emergency Room Medical Oncology 12/03/18 Montse Thompson MD [address] [facility] [address] [place], [place] [address] Consulting Physician Gynecologic Oncology 12/03/18 Lela Hardy MD PhD [address] [place] [address] [address] [place], [place] [address] Radiation Oncologist Radiation Oncology 12/23/18 Trena Obando MD [address] [place], [place] [address] Consulting Physician Neurology 09/18/21 documented as of this encounter
--- OUTSIDE RECORDS SUMMARY | 2024-04-24 14:45 | XMS_ITS | Encounter Summary ---
Author Organization [facility] Address [address] [place] [address] Phone Care Team Providers Care Formula Weigher Name Role Phone Aft, Kianna Machado MD PhD Unavailable [phone] Santiago Gilbert MD Unavailable [phone] Abbi Ventura MD Unavailable Montse Thompson MD Unavailable [phone] Lela Hardy MD PhD Unavailable [phone] Trena Obando MD Unavailable [phone] Dat Benito DO Primary Care Provider [phone] Encounter Details Date Type Department Care Team (Late st Contact Info) Description 07/04/2023 10:30 AM HVAC MECHANICAL ENGINEER Lab [facility] Oncology [address] [place] [address] Malignant neoplasm of upper-inner quadrant of left [...] on file Legal Sex Female 1:06 AM HVAC 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 Gender Identity Not on file Sexual [...] 07/04/2023 documented in this encounter Care Teams Formula Weigher Relationship Specialty Start Date End Date Dat Benito DO [address] [place] [address] PCP - General Internal Medicine 09/28/21 Aft, Kianna Machado MD PhD [address] [place] [address] Surgeon Surgical Oncology 11/22/17 Santiago Gilbert MD [address] [place] [address] Electric Deicer Assembler Gastroenterology 11/22/17 Abbi Ventura MD [address] [place] [address] Medical Oncologist/Production Artist Medical Oncology 12/03/18 Montse Thompson MD [address] [place] [address] Consulting Physician Gynecologic Oncology 12/03/18 Lela Hardy MD PhD [address] [facility] [address] [place] [address] Radiation Oncologist Radiation Oncology 12/23/18 Trena Obando MD [address] [place] [address] Consulting Physician Neurology 09/18/21 documented as of this encounter
--- OUTSIDE RECORDS SUMMARY | 2024-04-24 14:45 | XMS_ITS | Encounter Summary ---
Author Organization [facility] Healthcare Address [address] [place] [address] Care Team Providers Care Property Assessment Monitor Name Role Phone Aft, Kianna Machado MD PhD Unavailable [phone] Santiago Gilbert MD Unavailable [phone] Abbi Ventura MD Unavailable Montse Thompson MD Unavailable [phone] Lela Hardy MD PhD Unavailable [phone] Trena Obando MD Unavailable [phone] Dat Benito DO Primary Care Provider [phone] Reason for Referral * MRI/CAT/PET Scan (Routine) - Closed Specialty Diagnoses / Procedures Referred By Contac t Referred To Contact Radiology Diagnoses At high risk for pancreatic cancer BRCA2 gene mutation positive Procedures MRI Abdomen MRCP W WO Contrast Rosa Shaw NP [address] [facility] [address] [place] [address] Phone: tel: fax: [place] [address] [place] [address] Referral ID Status Reason Start Date Expiration Date Visits Re quested Visits Authorized [id number] Closed 10/25/2022 11/24/2023 1 1 CONCIERGE Reason for Visit * MRI/CAT/PET Scan (Routine) - Closed Specialty Diagnoses / Procedures Referred By Vijaya t Referred To Contact Radiology Diagnoses At high risk for pancreatic cancer BRCA2 gene mutation positive Procedures MRI Abdomen MRCP W WO Contrast Rosa Shaw NP [address] [facility] [address] [place] [address] Phone: tel: fax: [facility] [address] [address] Referral ID Status Reason Start Date Expiration Date Visits Re quested Visits Authorized [id number] Closed 10/25/2022 11/24/2023 1 1 Encounter Details Date Type Department Care Team (Latest Contact Info) Description 06/27/2023 10:10 AM SPA CONCIERGE - 06/27/2023 11:59 PM SPA CONCIERGE Hospital Encounter [facility] [address] [address] At high risk for pancreatic cancer; BRCA2 [...] on file Legal Sex Female 1:06 AM SPA CONCIERGE Gender Identity Not on file Sexual Orientation [...] Read Routine (OP Routine) 06/27/2023 11:15 AM SPA CONCIERGE At high risk for pancreatic cancer BRCA2 gene mutation positive POC ISTAT Routine 06/27/2023 10:27 AM SPA CONCIERGE documented in this encounter Results * MRI Abdomen MRCP W WO Contrast (06/27/2023 11:15 AM SPA CONCIERGE) Anatomical Region Laterality Modality Body N/A Magnetic Resonan ce 06/27/2023 12:3 9 PM SPA CONCIERGE Impressions 06/27/2023 1:32 PM SPA CONCIERGE No evidence of primary malignancy or metastatic disease in the abdomen. Dictated by: Lily Rashid M.D. The radiology attending physician has personally reviewed this study, and had reviewed and/or edited this written report and agrees with it. Electronically signed by: Nicholas Olmos M.D. Narrative 06/27/2023 1:32 PM SPA CONCIERGE EXAMINATION: 1. MAGNETIC RESONANCE IMAGING OF THE [...] * (ABNORMAL) POC ISTAT (06/27/2023 10:27 AM SPA CONCIERGE) Creatinine, POC, bld 1.9(H) 0.6 - 1.3 mg/dL [facility] Device Number [id number] [employer] [facility] [facility] P[facility] Performer [id number] [employer] [facility] [employer] [facility] [facility] Blood 06/27/2023 10:2 7 AM SPA CONCIERGE 06/27/2023 10:27 AM SPA CONCIERGE Abbi Ventura MD LAB BLOOD ORDERABLES Final Resul t [facility] [address] [facility] [place] [address] documented in this encounter Visit Diagnoses Diagnosis [...] 1 dose Contrast Given 06/27/2023 10:28 AM SPA CONCIERGE 20 mL documented in this encounter Orders Medications Ordered That [place] ht Not Have Been Administered Count Last Ordered Date First Ordered Date gadoxetate (EOVIST) injection 10 mL 1 06/27 sodium chloride 0.9% flush 50 mL 1 06/27/19 24 documented in this encounter Care Teams Property Assessment Monitor Relationship Specialty Start Date End Date Dat Benito DO [address] [place] [address] PCP - General Internal Medicine 09/28/21 Aft, Kianna Machado MD PhD [address] [place] [address] Surgeon Surgical Oncology 11/22/17 Santiago Gilbert MD [address] [place] [address] Ground Operations Superintendent Gastroenterology 11/22/17 Abbi Ventura MD 10 [facility] [address] [place] [address] Medical Oncologist/Dental Technician Apprentice Medical Oncology 12/03/18 Montse Thompson MD 10 [facility] [address] [place] [address] Consulting Physician Gynecologic Oncology 12/03/18 Lela Hardy MD PhD [address] [facility] [address] [place] [address] Radiation Oncologist Radiation Oncology 12/23/18 Trena Obando MD [address] [place] [address] Consulting Physician Neurology 09/18/21 documented as of this encounter
--- OUTSIDE RECORDS SUMMARY | 2024-04-24 14:45 | XMS_ITS | Encounter Summary ---
Author Organization [facility] Address [address] [place] [address] Phone Care Team Providers Care Bulldogger Name Role Phone Aft, Kianna Machado MD PhD Unavailable [phone] Santiago Gilbert MD Unavailable [phone] Abbi Ventura MD Unavailable Montse Thompson MD Unavailable [phone] Lela Hardy MD PhD Unavailable [phone] Trena Obando MD Unavailable [phone] Dat Benito DO Primary Care Provider [phone] Reason for Visit * Reason Onset Date Comments Test Preparation 07/10/2023 Encounter Details Date Type Department Care Team (Late st Contact Info) Description 07/10/2023 Telephone [facility] Surgery [facility] Advanced Medicine 5th [place] [address] [place] [address] Meredith Timmons, LYDIA Test Preparation [...] on file Legal Sex Female 1:06 AM GRINDER NEEDLE TIP Gender Identity Not on file Sexual Orientation Not on file documented as of this encounter Miscellaneous Notes * Telephone Encounter - Meredith Timmons RN - 07/10/2023 8:34 AM GRINDER NEEDLE TIP Called pt and left message encouraging adequate fluid intake today. Discouraged intake of fluids with high sugar/caffeine content and encouraged water intake to ensure kidney function is within acceptable range for CT w contrast tomorrow. DER NEEDLE TIP * Telephone Encounter - Meredith Timmons RN - 07/10/2023 8:34 AM GRINDER NEEDLE TIP ----- Message from Kianna Bunch MD PhD sent at 07/09/2023 7:53 PM GRINDER NEEDLE TIP ----- Regarding: RE: Creatinine level She will just need to have a cr drawn the day of the exam and hopefully it will be fine. She reallyneeds to have the contrast ----- Message ----- From: Meredith Timmons RN Sent: 07/09/2023 5:13 PM GRINDER NEEDLE TIP To: Kianna Bunch MD PhD; Tova Burnett [...] information ahead of time. Thank you, Tova [phone] ----- Message ----- From: Tova Burnett, RT Sent: 07/09/2023 10:36 AM GRINDER NEEDLE TIP To: Meredith Timmons RN Subject: Creatinine level [...] information ahead of time. Thank you, Tova [phone] DER NEEDLE TIP documented in this encounter Plan of Treatment Not on file documented as of this encounter Visit Diagnoses Not on filedocumented in this encounter Care Teams Bulldogger Relationship Specialty Start Date End Date Dat Benito DO [address] [place] [address] PCP - General Internal Medicine 09/28/21 Aft, Kianna Machado MD PhD [address] [place] [address] Surgeon Surgical Oncology 11/22/17 Santiago Gilbert MD [address] [place] [address] Plastic Sheeting Cutter Gastroenterology 11/22/17 Abbi Ventura MD 10 [facility] [address] [place] [address] Medical Oncologist/Chip Separator Medical Oncology 12/03/18 Montse Thompson MD [address] [facility] [address] [place] [address] Consulting Physician Gynecologic Oncology 12/03/18 Lela Hardy MD PhD [address] [place] [address] [address] [place] [address] Radiation Oncologist Radiation Oncology 12/23/18 Trena Obando MD [address] [place] [address] Consulting Physician Neurology 09/18/21 documented as of this encounter
--- OUTSIDE RECORDS SUMMARY | 2024-04-24 14:45 | XMS_ITS | Encounter Summary ---
Author Organization [facility] Address [address] [place] [address] Phone Care Team Providers Care Driver Courier Name Role Phone AftKianna MD PhD Unavailable [phone] Santiago Gilbert MD Unavailable [phone] Abbi Ventura MD Unavailable Montse Thompson MD Unavailable [phone] Lela Hardy MD PhD Unavailable Trena Obando MD Unavailable [phone] Dat Benito DO Primary Care Provider [phone] Reason for Referral * MRI/CAT/PET Scan (Routine) - Closed Specialty Diagnoses / Procedures Referred By Contac t Referred To Contact Radiology Diagnoses Malignant neoplasm of upper-inner quadrant of left breast in female, estrogen receptor negative (HCC) H/O bilateral mastectomy Localized swelling of chest wall Procedures CT Chest W Contrast Aft, Kianna Machado MD PhD [address] [place] [address] Phone: tel: fax: [address] [address] Referral ID Status Reason Start Date Expiration Date Visits Re quested Visits Authorized [id number] Closed 07/05/2023 08/03/2024 1 1 ANALYST Encounter Details Date Type Department Care Team (Late st Contact Info) Description 07/05/2023 Telephone [facility] Surgery [address] [facility] 5th [place] [address] [place] [address] Adam Castillo Social History Tobacco Use Types [...] on file Legal Sex Female 1:06 AM COST ANALYST Gender Identity Not on file Sexual Orientation Not on file documented as of this encounter Miscellaneous Notes * Addendum Note - Meredith Timmons RN - 07/05/2023 4:23 PM CSTAddended by: MEREDITH TIMMONS on: 07/05/2023 04:23 PM Modules accepted: Orders ANALYST * Telephone Encounter - Meredith Timmons RN - 07/05/2023 4:[address] ordered per Dr. Bunch recs and pt notified of scheduling instructions via phone call. ANALYST * Telephone Encounter - Adam Castillo - [...] the pain. Urgent message sent to [facility]. ANALYST documented in this encounter Plan of Treatment Not on file documented as of this encounter Results * CT Chest W Contrast (07/11/2023 1:19 PM COST ANALYST) Anatomical Region Laterality Modality Body N/A Computed Tomogra phy 07/11/2023 2:48 PM COST ANALYST Impressions 07/11/2023 8:45 PM COST ANALYST 1. ??Postsurgical changes of bilateral mastectomy with [...] Dat Wright M.D. Narrative 07/11/2023 8:45 PM COST ANALYST EXAMINATION: CT CHEST W CONTRAST HISTORY: Left [...] wall documented in this encounter Care Teams Driver Courier Relationship Specialty Start Date End Date Dat Benito DO [address] [place] [address] PCP - General Internal Medicine 09/28/21 Aft, Kianna Machado MD PhD [address] [place] [address] Surgeon Surgical Oncology 11/22/17 Santiago Gilbert MD [address] [place] [address] Soil Expert Gastroenterology 11/22/17 Abbi Ventura MD [address] [place] [address] [address] [place] [address] Medical Oncologist/Domestic Freight Forwarder Medical Oncology 12/03/18 Montse Thompson MD [address] [place] [address] [address] [place] [address] Consulting Physician Gynecologic Oncology 12/03/18 Lela Hardy MD PhD [address] [place] [address] [address] [place] [address] Radiation Oncologist Radiation Oncology 12/23/18 Trena Obando MD [address] [place] [address] Consulting Physician Neurology 09/18/21 documented as of this encounter
--- OUTSIDE RECORDS SUMMARY | 2024-04-24 14:45 | XMS_ITS | Encounter Summary ---
Author Organization [facility] Healthcare Address [address] [place] [address] Care Team Providers Care Business Education Instructor Name Role Phone Aft, Kianna Machado MD PhD Unavailable [phone] Santiago Gilbert MD Unavailable [phone] Abbi Ventura MD Unavailable Montse Thompson MD Unavailable [phone] Lela Hardy MD PhD Unavailable [phone] Trena Obando MD Unavailable [phone] Dat Benito DO Primary Care Provider [phone] Reason for Visit * MRI/CAT/PET Scan (Routine) - Closed Specialty Diagnoses / Procedures Referred By Contac t Referred To Contact Radiology Diagnoses Malignant neoplasm of upper-inner quadrant of left breast in female, 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) Procedures MRI Brain W WO Contrast Abbi Ventura MD [address] [facility] [address] [place] [address] Phone: tel: fax: [facility] Referral ID Status Reason Start Date Expiration Date Visits Re quested Visits Authorized [id number] Closed 01/24/2023 02/23/2024 1 1 Encounter Details Date Type Department Care Team (Latest Contact Info) Description 01/29/2023 11:30 AM CDT Ancillary Procedure [facility] Mobile MRI [address] [place] [address] Malignant neoplasm of upper-inner quadrant of left [...] on file Legal 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 Female 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 Gender Identity Not on file Sexual [...] 01/05 documented in this encounter Care Teams Business Education Instructor Relationship Specialty Start Date End Date Dat Benito DO [address] [place] [address] PCP - General Internal Medicine 09/28/21 Aft, Kianna Machado MD PhD [address] [place] [address] Surgeon Surgical Oncology 11/22/17 Santiago Gilbert MD [address] [place] [address] Outreach Librarian Gastroenterology 11/22/17 Abbi Ventura MD [address] [place] [address] [address] [place] [address] Medical Oncologist/Smoke Chaser Medical Oncology 12/03/18 Montse Thompson MD [address] [facility] [address] [place] [address] Consulting Physician Gynecologic Oncology 12/03/18 Lela Hardy MD PhD [address] [facility] [address] [place] [address] Radiation Oncologist Radiation Oncology 12/23/18 Trena Obando MD [facility] [address] [place] [address] Consulting Physician Neurology 09/18/21 documented as of this encounter
--- OUTSIDE RECORDS SUMMARY | 2024-04-24 14:45 | XMS_ITS | Encounter Summary ---
Author Organization [facility] Address [address] [place] [address] Phone Care Team Providers Care Continuous Crusher Operator Name Role Phone Aft, Kianna Machado MD PhD Unavailable [phone] Santiago Gilbert MD Unavailable [phone] Abbi Ventura MD Unavailable Montse Thompson MD Unavailable [phone] Lela Hardy MD PhD Unavailable [phone] Trena Obando MD Unavailable [phone] Dat Benito DO Primary Care Provider [phone] Encounter Details Date Type Department Care Team (Late st Contact Info) Description 02/19/2023 Telephone [facility] Pulmonary [facility] Advanced Medicine 8th [place] [address] [place] [address] Adelina Morton, RN Social History [...] file Legal 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 Gender Identity Not on file Sexual [...] on filedocumented in this encounter Care Teams Continuous Crusher Operator Relationship Specialty Start Date End Date Dat Benito DO [address] [place] [address] PCP - General Internal Medicine 09/28/21 Aft, Kianna Machado MD PhD [address] [place] [address] Surgeon Surgical Oncology 11/22/17 Santiago Gilbert MD [address] [place] [address] Public Bath Attendant Gastroenterology 11/22/17 Abbi Ventura MD [address] [place], [place] [address] Medical Oncologist/Freight Car Cleaner Medical Oncology 12/03/18 Montse Thompson MD [address] [place] [address] Consulting Physician Gynecologic Oncology 12/03/18 Lela Hardy MD PhD 10 [facility] [address] [place] [address] Radiation Oncologist Radiation Oncology 12/23/18 Trena Obando MD [address] [place] [address] Consulting Physician Neurology 09/18/21 documented as of this encounter
--- OUTSIDE RECORDS SUMMARY | 2024-04-24 14:45 | XMS_ITS | Encounter Summary ---
Author Organization [facility] Healthcare Address [address] [place] [address] Care Team Providers Care Seaport Planning Manager Name Role Phone Aft, Kianna Machado MD PhD Unavailable [phone] Santiago Gilbert MD Unavailable [phone] Abbi Ventura MD Unavailable Montse [place] MD Unavailable [phone] Lela Hardy MD PhD Unavailable Trena Obando MD Unavailable [phone] Dat Benito DO Primary Care Provider [phone] Encounter Details Date Type Department Care Team (Late st Contact Info) Description 11/26/2022 Documentation [facility] Occupational Therapy [address] [place] [address] Kassie Beltrán, OT Social History Tobacco Use [...] file Legal 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 Female 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 INSPECTOR DIALS Gender Identity Not on file Sexual Orientation [...] on filedocumented in this encounter Care Teams Seaport Planning Manager Relationship Specialty Start Date End Date Dat Benito DO [address] [place] [address] PCP - General Internal Medicine 09/28/21 Aft, Kianna Machado MD PhD [address] [place] [address] Surgeon Surgical Oncology 11/22/17 Santiago Gilbert MD [address] [place] [address] Locomotive Switch Operator Gastroenterology 11/22/17 Abbi Ventura MD [facility] [address] [place] [address] Medical Oncologist/Insurance Claim Approver Medical Oncology 12/03/18 Montse [place] MD [address] [place] [address] Consulting Physician Gynecologic Oncology 12/03/18 Lela Hardy MD PhD [address] [place] [address] Radiation Oncologist Radiation Oncology 12/23/18 Trena Obando MD [address] [place] [address] Consulting Physician Neurology 09/18/21 documented as of this encounter
--- OUTSIDE RECORDS SUMMARY | 2024-04-24 14:45 | XMS_ITS | Encounter Summary ---
Author Organization [facility] Healthcare Address [address] [place] [address] Care Team Providers Care Head Swamper Name Role Phone Aft, Kianna Machado MD PhD Unavailable [phone] Santiago Gilbert MD Unavailable [phone] Abbi Ventura MD Unavailable Montse [place] MD Unavailable [phone] Lela Hardy MD PhD Unavailable [phone] Trena Obando MD Unavailable [phone] Dat Benito DO Primary Care Provider [phone] Encounter Details Date Type Department Care Team (Late st Contact Info) Description 04/11/2023 1:00 PM SENIOR TERADATA DEVELOPER Lab [address] [address] Malignant neoplasm of upper-inner quadrant [...] file Legal Sex Female 1:06 AM SENIOR TERADATA DEVELOPER Gender Identity Not on file Sexual Orientation Not on file documented as of this encounter Plan of Treatment Not on file documented as of this encounter Procedures Procedure Name Priority Date/Time Associated Diagnosis Comments EGFR Routine 04/11/2023 12:52 PM SENIOR TERADATA DEVELOPER Malignant neoplasm of upper-inner quadrant of left breast in female, 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) DIFFERENTIAL AUTO Routine 04/11/2023 12: 52 PM SENIOR TERADATA DEVELOPER Malignant neoplasm of upper-inner quadrant of left breast in female, 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) CBC WITH AUTO DIFFERENTIAL Routine 04/11/2023 12:52 PM SENIOR TERADATA DEVELOPER Malignant neoplasm of upper-inner quadrant of left breast in female, 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) CA 125 Routine 04/11/2023 12:52 PM SENIOR TERADATA DEVELOPER Malignant neoplasm of upper-inner quadrant of left breast in female, 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 73 m2 [facility] Comment: Interpretive Data Reference Interval Normal ?>/= [...] reviewed 2021. Blood 04/11/2023 12:5 2 PM SENIOR TERADATA DEVELOPER 04/11/2023 12:53 PM SENIOR TERADATA DEVELOPER us Abbi Ventura MD LAB BLOOD ORDERABLES Final Resul t Performing Organization Address City/State/[facility] Co de Phone Number [facility] [place] [address] * Differential, auto (04/11/2023 12:52 PM SENIOR TERADATA DEVELOPER) Neutrophil abs 4.8 1.5 - 6.5 K/cumm [facility] Comment:Testing performed by : [facility], [address] [place] [address] Imm gran abs 0.0 0.0 - 0.1 K/cumm [facility] Lymphocyte abs 1.5 0.8 - 3.3 K/cumm [facility] Monocyte abs 0.4 0.2 - 0.8 K/cumm [facility] Eosinophil abs 0.3 0.0 - 0.5 K/cumm [facility] Basophil abs 0.1 0.0 - 0.1 K/cumm [facility] Neutrophil pct 67.9 % [facility] Comment: Interpretive Data Percent cell count reference ranges are not reported, since discordance with absolute values may lead to misinterpretation of CBC data. Current Interpretive Data was last revised on 2017. Imm gran pct 0.4 % [facility] Comment: Interpretive Data Percent cell count reference ranges are not reported, since discordance with absolute values may lead to misinterpretation of CBC data. Current Interpretive Data was last revised on 2017. Lymphocyte pct 20.5 % [facility] Comment: Interpretive Data Percent cell count reference ranges are not reported, since discordance with absolute values may lead to misinterpretation of CBC data. Current Interpretive Data was last revised on 2017. Monocyte pct 5.8 % [facility] Comment: Interpretive Data Percent cell count reference ranges are not reported, since discordance with absolute values may lead to misinterpretation of CBC data. Current Interpretive Data was last revised on 2017. Eosinophil pct 4.4 % [facility] Comment: Interpretive Data Percent cell count reference ranges are not reported, since discordance with absolute values may lead to misinterpretation of CBC data. Current Interpretive Data was last revised on 2017. Basophil pct 1.0 % [facility] Comment: Interpretive Data Percent cell count reference ranges are not reported, since discordance with absolute values may lead to misinterpretation of CBC data. Current Interpretive Data was last revised on 2017. Blood 04/11/2023 12:5 2 PM SENIOR TERADATA DEVELOPER 04/11/2023 12:53 PM SENIOR TERADATA DEVELOPER us Abbi Ventura MD LAB BLOOD ORDERABLES Final Resul t [facility] Department [place] [address] * CEA (04/11/2023 12:52 PM SENIOR TERADATA DEVELOPER) CEA 1.4 <=5.0 ng/mL [facility] Comment: Interpretive Data: Reference Range: Non-Smokers: 0.0 ? 5.0 ng/mL Smokers: 0.0 ? 6.5 ng/mL The Bo CEA assay procedure was used. Results from different manufacturers or methods may not be comparable. Serial testing should be performed using the same method. Current interpretive data was last revised 2021. Blood 04/11/2023 12:5 2 PM SENIOR TERADATA DEVELOPER 04/11/2023 2:35 PM SENIOR TERADATA DEVELOPER us Abbi Ventura MD LAB BLOOD ORDERABLES Final Resul t [facility] Department [place] [address] * (ABNORMAL) CBC with auto differential (04/11/2023 12:52 PM SENIOR TERADATA DEVELOPER) [facility] WBC 7.1 3.8 - 9.9 K/cumm [facility] Comment:Testing performed by : [address] [address] Hgb 11.9 11.9 - 15.5 g/dL [facility] Comment: Testing performed by: [address] [address] Interpretive Data A reference range for this assay has not been established for patients with an unknown legal sex. Please refer to the laboratory test catalog for established sex-specific reference intervals. Current interpretive data was last revised on 2023. Hct 37.4 35.6 - 45.5 % [facility] Comment: Testing performed by: [address] [address] Interpretive Data A reference range for this assay has not been established for patients with an unknown legal sex. Please refer to the laboratory test catalog for established sex-specific reference intervals. Current interpretive data was last revised on 2023. Plt 176 150 - 400 K/cumm [facility] Comment:Testing performed by : [address] [address] MPV 9.0(L) 9.1 - 12.3 fL [facility] RBC 4.13 3.90 - 5.20 M/cumm [facility] Comment: Interpretive Data A reference range for this assay has not been established for patients with an unknown legal sex. Please refer to the laboratory test catalog for established sex-specific reference intervals. Current interpretive data was last revised on 2023. MCV 90.6 81.3 - 96.4 fL [facility] MCH 28.8 27.1 - 33.3 pg [facility] MCHC 31.8(L) 32.3 - 35.7 g/dL [facility] RDW CV 13.2 11.1 - 14.9 % [facility] RDW SD 43.9 35.7 - 48.1 fL [facility] NRBC abs 0.00 0.00 - 0.01 K/cumm [facility] Blood 04/11/2023 12:5 2 PM SENIOR TERADATA DEVELOPER 04/11/2023 12:53 PM SENIOR TERADATA DEVELOPER Abbi Ventura MD LAB BLOOD ORDERABLES Final Resul t Performing Organization Address [facility] [place] [address] * CA 125 (04/11/2023 12:52 PM SENIOR TERADATA DEVELOPER) CA 125 ag 7.4 0.0 - 38.1 units/mL [facility] Comment: Interpretive Data The Bo CA 125 assay procedure was used. Results from different manufacturers or methods may not be comparable. Serial testing should be performed using the same method. Blood 04/11/2023 12:5 2 PM SENIOR TERADATA DEVELOPER 04/11/2023 2:35 PM SENIOR TERADATA DEVELOPER Abbi Ventura MD LAB BLOOD ORDERABLES Final Resul t Performing Organization Address [facility] [place] [address] * (ABNORMAL) Comprehensive metabolic panel (04/11/2023 12:52 PM SENIOR TERADATA DEVELOPER) Sodium 139 135 - 145 mmol/L [facility] Comment:Testing performed by : [facility], [address] [place] [address] Potassium, pl 4.2 3.3 - 4.9 mmol/L [facility] Chloride 109 97 - 110 mmol/L [facility] CO2 26 22 - 32 mmol/L [facility] Anion gap 4 2 - 15 mmol/L [facility] BUN 24 6 - 25 mg/dL [facility] Creatinine 1.41(H) 0.60 - 1.10 mg/dL [facility] Glucose 116 70 - 199 mg/dL [facility] Comment: Interpretive Data Fasting glucose >/= [...] 2022. Calcium 9.2 8.5 - 10.3 mg/dL [facility] Bilirubin, total 0.4 0.1 - 1.2 mg/dL [facility] Protein, pl 7.2 6.5 - 8.5 g/dL [facility] Albumin 4.3 3.5 - 5.0 g/dL [facility] Alk phos 90 40 - 130 Units/L [facility] ALT 11 7 - 45 Units/L [facility] AST 18 10 - 45 Units/L [facility] Blood 04/11/2023 12:5 2 PM SENIOR TERADATA DEVELOPER 04/11/2023 12:53 PM SENIOR TERADATA DEVELOPER us Abbi Ventura MD LAB BLOOD ORDERABLES Final Resul t [facility] [place] [address] documented in this encounter Visit Diagnoses Diagnosis Malignant neoplasm of upper-inner quadrant of left breast in female, 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) Malignant neoplasm of descending colon documented in this encounter Care Teams Head Swamper Relationship Specialty Start Date End Date Dat Benito DO [address] [place] [address] PCP - General Internal Medicine 09/28/21 Aft, Kianna Machado MD PhD [address] [place] [address] Surgeon Surgical Oncology 11/22/17 Santiago Gilbert MD [address] [place] [address] Mica Patcher Gastroenterology 11/22/17 Abbi Ventura MD [address] [place] [address] [address] [place] [address] Medical Oncologist/Dinker Medical Oncology 12/03/18 Montse [place] MD [address] [place] [address] [address] [place] [address] Consulting Physician Gynecologic Oncology 12/03/18 Lela Hardy MD PhD [address] [place] [address] [address] [place] [address] Radiation Oncologist Radiation Oncology 12/23/18 Trena Obando MD [address] [place] [address] Consulting Physician Neurology 09/18/21 documented as of this encounter
--- OUTSIDE RECORDS SUMMARY | 2024-04-24 14:45 | XMS_ITS | Encounter Summary ---
Author Organization [facility] Address [address] [place] [address] Phone Care Team Providers Care Electric Shipyard Operator Name Role Phone Aft, Kianna Machado MD PhD Unavailable [phone] Santiago Gilbert MD Unavailable [phone] Abbi Ventura MD Unavailable Montse [place] MD Unavailable [phone] Lela Hardy MD PhD Unavailable [phone] Trena Obando MD Unavailable [phone] Dat Benito DO Primary Care Provider [phone] Encounter Details Date Type Department Care Team (Late st Contact Info) Description 01/30/2023 Telephone [facility] Oncology [address] [place] [id number] Uriel Corral Social History Tobacco Use Types [...] on file Legal 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 Female 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 Gender Identity Not on file Sexual Orientation [...] on filedocumented in this encounter Care Teams Electric Shipyard Operator Relationship Specialty Start Date End Date Dat Benito DO [address] [place] [address] PCP - General Internal Medicine 09/28/21 Aft, Kianna Machado MD PhD [address] [place] [address] Surgeon Surgical Oncology 11/22/17 Santiago Gilbert MD [address] [place] [address] Overhead Cleaner Maintainer Gastroenterology 11/22/17 Abbi Ventura MD [address] [place] [address] [address] [place] [address] Medical Oncologist/Electrical Controls Designer Medical Oncology 12/03/18 Montse [place] MD [address] [facility] [address] [place] [address] Consulting Physician Gynecologic Oncology 12/03/18 Lela Hardy MD PhD [address] [facility] [address] [place] [address] Radiation Oncologist Radiation Oncology 12/23/18 Trena Obando MD [facility] [address] [place] [address] Consulting Physician Neurology 09/18/21 documented as of this encounter
--- OUTSIDE RECORDS SUMMARY | 2024-04-24 14:45 | XMS_ITS | Encounter Summary ---
Author Organization [facility] Address [address] [place] [address] Phone Care Team Providers Care Shaker Washer Name Role Phone AileentKianna MD PhD Unavailable [phone] Santiago [place] MD Unavailable [phone] Abbi Ventura MD Unavailable Montse [place] MD Unavailable [phone] Lela Hardy MD PhD Unavailable [phone] Trena Obando MD Unavailable [phone] Dat Benito DO Primary Care Provider [phone] Encounter Details Date Type Department Care Team (Late st Contact Info) Description 07/10/2023 Telephone [facility] Surgery [facility] Advanced Medicine 5th [place] [address] [place] [address] Kianna Bunch MD PhD [address] [place] [address] Social History Tobacco Use Types [...] on file Legal Sex Female 1:06 AM FISH DRESSING MACHINE FEEDER Gender Identity Not on file Sexual Orientation Not on file documented as of this encounter Miscellaneous Notes * Telephone Encounter - Breanna Ignacio RN - 07/10/2023 7:57 AM CST ----- Message from Kianna Bunch MD PhD sent at 07/09/2023 7:53 PM FISH DRESSING MACHINE FEEDER ----- Regarding: RE: Creatinine level She will just need to have a cr drawn the day of the exam and hopefully it will be fine. She reallyneeds to have the contrast ----- Message ----- From: Meredith Timmons RN Sent: 07/09/2023 5:13 PM FISH DRESSING MACHINE FEEDER To: Kianna Bunch MD PhD; RT Guille; [...] information ahead of time. Thank you, Tova [phone] ----- Message ----- From: Tova Burnett, RT Sent: 07/09/2023 10:36 AM FISH DRESSING MACHINE FEEDER To: Meredith Timmons, RN Subject: Creatinine level [...] information ahead of time. Thank you, Tova [phone] DRESSING MACHINE FEEDER documented in this encounter Plan of Treatment Scheduled Orders Name Type Priority Associated Diagnoses Orde r Schedule Creatinine Lab Routine Pre-procedural laboratory examination Expected: 07/10/2023, Expires: 07/09/2024 documented as of this encounter Visit Diagnoses Diagnosis Pre-procedural laboratory examination- Primary documented in this encounter Care Teams Shaker Washer Relationship Specialty Start Date End Date Dat Benito DO [address] [place] [address] PCP - General Internal Medicine 09/28/21 Aft, Kianna Machado MD PhD [address] [place] [address] Surgeon Surgical Oncology 11/22/17 Santiago Gilbert MD [address] [place] [address] Renewable Energy Engineer Gastroenterology 11/22/17 Abbi Ventura MD [address] [place] [address] [address] [place] [address] Medical Oncologist/Barber Or Beauty Shop Manager Medical Oncology 12/03/18 Montse [place] MD [address] [facility] [address] [place] [address] Consulting Physician Gynecologic Oncology 12/03/18 Lela Hardy MD PhD [address] [facility] [address] [place] [address] Radiation Oncologist Radiation Oncology 12/23/18 Trena Obando MD [address] [place] [address] Consulting Physician Neurology 09/18/21 documented as of this encounter
--- OUTSIDE RECORDS SUMMARY | 2024-04-24 14:45 | XMS_ITS | Encounter Summary ---
Author Organization [facility] Address [address] [place] [address] Phone Care Team Providers Care Underwriting Assistant Name Role Phone Aft, Kianna Machado MD PhD Unavailable [phone] Santiago Gilbert MD Unavailable [phone] Abbi Ventura MD Unavailable Montse [place] MD Unavailable [phone] Lela Hardy MD PhD Unavailable [phone] Trena Obando MD Unavailable [phone] Dat Benito DO Primary Care Provider [phone] Encounter Details Date Type Department Care Team (Late st Contact Info) Description 06/21/[address] [address] Cat Ivan Social History Tobacco Use Types [...] on file Legal 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 Asked that the patient call us to confirm TESTER documented in this encounter Plan of Treatment Not on file documented as of this encounter Visit Diagnoses Not on filedocumented in this encounter Care Teams Underwriting Assistant Relationship Specialty Start Date End Date Dat Benito DO [address] [place] [address] PCP - General Internal Medicine 09/28/21 Aft, Kianna Machado MD PhD [address] [place] [address] Surgeon Surgical Oncology 11/22/17 Santiago Gilbert MD [address] [place] [address] Clay Products Glazer Gastroenterology 11/22/17 Abbi Ventura MD [address] [place] [address] Medical Oncologist/Straw Boss Medical Oncology 12/03/18 Montse [place] MD [address] [place], [place] [address] Consulting Physician Gynecologic Oncology 12/03/18 Lela Hardy MD PhD [address] [facility] [address] [place] [address] Radiation Oncologist Radiation Oncology 12/23/18 Trena Obando MD [address] [place] [address] Consulting Physician Neurology 09/18/21 documented as of this encounter
--- OUTSIDE RECORDS SUMMARY | 2024-04-24 14:45 | XMS_ITS | Encounter Summary ---
Author Organization [facility] Address [address] [place] [address] Phone Care Team Providers Care Freelance Programmer/App Developer Name Role Phone Aft, Kianna Machado MD PhD Unavailable [phone] Santiago Gilbert MD Unavailable [phone] Abbi Ventura MD Unavailable Montse Thompson MD Unavailable [phone] Lela Hardy MD PhD Unavailable [phone] Trena Obando MD Unavailable [phone] Dat Benito DO Primary Care Provider [phone] Encounter Details Date Type Department Care Team (Late st Contact Info) Description 06/27/2023 1:00 PM BANDER AND CELLOPHANER MACHINE Office Visit [facility] Gastroenterology [address] [place] [address] Medical Office [address], [address] [place] [address] Roe Fofana MD [address] [place] [address] BRCA2 gene mutation positive in [...] on file Legal Sex Female 1:06 AM BANDER AND CELLOPHANER MACHINE Gender Identity Not on file Sexual Orientation Not on file documented as of this encounter Last Filed Vital Signs Vital Sign Reading Time Taken Comments Blood Pressure 138/75 06/27/2023 12:52 PM BANDER AND CELLOPHANER MACHINE Pulse 82 06/27/2023 12:52 PM BANDER AND CELLOPHANER MACHINE Temperature - - Respiratory Rate - - Oxygen Saturation - - Inhaled Oxygen Concentration - - Weight 102.2 kg (225 lb 3.2 oz) 024 12:52 PM BANDER AND CELLOPHANER MACHINE Height 175.3 cm (5' 9 ) 06/27/2023 12:5 2 PM BANDER AND CELLOPHANER MACHINE Body Mass Index 33.26 06/27/2023 12:52 PM BANDER AND CELLOPHANER MACHINE documented in this encounter Progress Notes * Roe Fofana MD - 06/27/2023 1:00 PM CST Images from the original note were not included. [facility] Gilberto Callejas Department of Medicine Division of Gastroenterology Interventional & Pancreaticobiliary Endoscopy Program 06/27/[address] Benito and Abbi, Thank you for allowing me the opportunity to see your patient, Aleah Gerber (: 1955) in the [facility] Digestive Disease [facility] at [facility]. Below, please see my complete clinic note with the assessment and plan noted at the bottom. Please do not hesitate to contact me at [phone] should you have any questions regarding this patient's care. Sincerely, Roe Fofana MD extruding department supervisor [facility] of Medicine Chief Complaint: Patient referred for [...] Breast Needle Localization partial mastectomy (L), Biopsy Mongo Lymph Node With Lymphoscintigraphy (L), Insertion Port [...] discussed with my Nurse Practitioner, Nayeli Marmolejo PIT SHOVELER. I have reviewed her history, physical and [...] documented as of this encounter Care Teams Freelance Programmer/App Developer Relationship Specialty Start Date End Date Dat Benito DO [address] [place] [address] PCP - General Internal Medicine 09/28/21 Aft, Kianna Machado MD PhD [address] [place] [address] Surgeon Surgical Oncology 11/22/17 Santiago Gilbert MD [address] [place] [address] Microcomputer Support Specialist Gastroenterology 11/22/17 Abbi Ventura MD [address] [place] [address] [address] [place] [address] Medical Oncologist/Carton Inspector Medical Oncology 12/03/18 Montse Thompson MD [address] [place] [address] [address] [place] [address] Consulting Physician Gynecologic Oncology 12/03/18 Lela Hardy MD PhD [address] [place] [address] [address] [place] [address] Radiation Oncologist Radiation Oncology 12/23/18 Trena Obando MD [facility] [address] [place] [address] Consulting Physician Neurology 09/18/21 documented as of this encounter
--- OUTSIDE RECORDS SUMMARY | 2024-04-24 14:45 | XMS_ITS | Encounter Summary ---
Author Organization [facility] Address [address] [place] [address] Care Team Providers Care Electrical Products Sales Engineer Name Role Phone Aft, Kianna Machado MD PhD Unavailable [phone] Santiago Gilbert MD Unavailable [phone] Abbi Ventura MD Unavailable Montse Thompson MD Unavailable [phone] Lela Hardy MD PhD Unavailable [phone] Trena Obando MD Unavailable [phone] Dat Benito DO Primary Care Provider [phone] Reason for Visit * Reason Comments Cough Pt c/o cough, headac he, constipation that followed diarrhea. Symptoms present for 1 week Encounter Details Date Type Department Care Team (Late st Contact Info) Description 05/02/2023 11:00 AM SPACE AND MISSILE OPERATIONS SPACELIFT Office Visit [facility] at [address] [address] Radha Santos, KAM [address] [place] [address] COPD exacerbation (HCC) (Primary Dx) Social History [...] on file Legal Sex Female 1:06 AM SPACE AND MISSILE OPERATIONS SPACELIFT Gender Identity Not on file Sexual Orientation Not on file documented as of this encounter Last Filed Vital Signs Vital Sign Reading Time Taken Comments Blood Pressure 116/70 05/02/2023 10:53 AM SPACE AND MISSILE OPERATIONS SPACELIFT Pulse 70 05/02/2023 10:53 AM SPACE AND MISSILE OPERATIONS SPACELIFT Temperature 37.1 ??C (98.7 ??F) 05/02/2023 10:[address] Respiratory Rate 20 05/02/2023 10:53 AM SPACE AND MISSILE OPERATIONS SPACELIFT Oxygen Saturation 98% 05/02/2023 10:53 AM SPACE AND MISSILE OPERATIONS SPACELIFT Inhaled Oxygen Concentration - - Weight 102.5 kg (226 lb) 05/02/2023 10:53 AM SPACE AND MISSILE OPERATIONS SPACELIFT Height 175.3 cm (5' 9 ) 05/02/2023 10:53 AM SPACE AND MISSILE OPERATIONS SPACELIFT Body Mass Index 33.37 05/02/2023 10:53 AM SPACE AND MISSILE OPERATIONS SPACELIFT documented in this encounter Patient Instructions * Patient Instructions* Radha Santos, CAR SHUNTER - 05/02/2023 11:00 AM SPACE AND MISSILE OPERATIONS SPACELIFT Tessalon as prescribed for cough. Avoid irritants [...] and to keep mucous thin. Use an xwdk-uau-zohrhrt cough medicine such as Delsym or Robitussin. [...] CATCHING YOUR BREATH, OR SHORTNESS OF BREATH. E AND MISSILE OPERATIONS SPACELIFT * Attachments The following attachments cannot be sent through Care Everywhere. * COPD (Chronic Obstructive Pulmonary Disease) (Clinical Support Nurse) (Serbian) documented in this encounter Ordered Prescriptions Prescription [...] tenderness or frontal sinus tenderness. Mouth/Throat: Lips: [place]. Mouth: Mucous membranes are moist. Pharynx: Uvula [...] and to keep mucous thin. Use an ygqp-zsn-wvantwk cough medicine such as Delsym or Robitussin. [...] OR SHORTNESS OF BREATH. Radha Santos NP E AND MISSILE OPERATIONS SPACELIFT documented in this encounter Plan of Treatment Not on file documented as of this encounter Results * Influenza A/B, RSV, and COVID-19 PCR Nasopharyngeal (05/02/2023 11:02 AM SPACE AND MISSILE OPERATIONS SPACELIFT) COVID-19 RNA Negative Negative [facility] Influenza A RNA Negative Negative [facility] Influenza B RNA Negative Negative [facility] RSV RNA Negative Negative [facility] Comment: Interpretive data: Testing performed by [facility]. This test is performed using the [employer] Xpert Xpress CoV-2/Flu/RSV plus assay. This is a multiplex, real-time reverse transcriptase PCR assay intended for the qualitative detection of nucleic acid from SARS-CoV-2, influenza A, influenza B, and respiratory syncytial virus. This assay has been cleared by the [place] Food and Drug administration. The performance characteristics have been verified by the [facility]. ??Results must be considered in the clinical context, and a negative result does not rule out infection. Interpretive Data last revised 2023 Nasopharyngeal 05/02/2023 11 :02 AM SPACE AND MISSILE OPERATIONS SPACELIFT 05/02/2023 2:33 PM SPACE AND MISSILE OPERATIONS SPACELIFT Narrative [facility] - 05/02/2023 3:36 PM SPACE AND MISSILE OPERATIONS SPACELIFT Is the Patient experiencing symptoms consistent with COVID?->Yes Date of Symptom Onset->04/25/23 Reason for testing?->Symptomatic Is the patient experiencing any symptoms consistent with COVID (eg. Fever, cough, shortness of breath)?->Yes What is the reason for testing?->Symptoms of COVID-19 in high-risk group??(Rapid) Radha Santos NP LAB MICROBIOLOGY - GENERAL ORD ERABLES Final Result [facility] [address] Department [place] [address] documented in this encounter Visit Diagnoses Diagnosis COPD exacerbation (HCC)- Primary Obstructive chronic bronchitis with exacerbation COPD exacerbation (HCC) Obstructive chronic bronchitis with exacerbation documented in this encounter Additional Health Concerns Infection Onset Date Last Indicated Resolved Time COVID: Suspected 05/02/2023 05/02/2023 05/02/2023 3:37 PM SPACE AND MISSILE OPERATIONS SPACELIFT documented as of this encounter Care Teams Electrical Products Sales Engineer Relationship Specialty Start Date End Date Dat Benito DO [address] [place] [address] PCP - General Internal Medicine 09/28/21 Aft, Kianna Machado MD PhD [address] [place] [address] Surgeon Surgical Oncology 11/22/17 Santiago Gilbert MD [address] [place] [address] Em Physician Gastroenterology 11/22/17 Abbi Ventura MD [address] [place] [address] [address] [place] [address] Medical Oncologist/Pmo Analyst Medical Oncology 12/03/18 Montse Thompson MD [address] [place] [address] [address] [place] [address] Consulting Physician Gynecologic Oncology 12/03/18 Lela Hardy MD PhD [address] [place] [address] [address] [place] [address] Radiation Oncologist Radiation Oncology 12/23/18 Trena Obando MD [address] [place] [address] Consulting Physician Neurology 09/18/21 documented as of this encounter
--- OUTSIDE RECORDS SUMMARY | 2024-04-24 14:45 | XMS_ITS | Encounter Summary ---
Author Organization [facility] Address [address] [place] [address] Phone Care Team Providers Care Rn Clinical Documentation Name Role Phone Aft, Kianna Machado MD PhD Unavailable Santiago Gilbert MD Unavailable [phone] Abbi Ventura MD Unavailable Montse Thompson MD Unavailable [phone] Lela Hardy MD PhD Unavailable [phone] Trena Obando MD Unavailable [phone] Dat Benito DO Primary Care Provider [phone] Encounter Details Date Type Department Care Team (Late st Contact Info) Description 04/11/2023 12:15 PM GARBAGE TRUCK DISPATCHER Lab [facility] Oncology [address] [place] [address] Malignant neoplasm of upper-inner quadrant of left [...] on file Legal Sex Female 1:06 AM GARBAGE TRUCK DISPATCHER Gender Identity Not on file Sexual [...] 04/11/2023 documented in this encounter Care Teams Rn Clinical Documentation Relationship Specialty Start Date End Date Dat Benito DO [address] [place] [address] PCP - General Internal Medicine 09/28/21 Aft, Kianna Machado MD PhD [address] [place] [address] Surgeon Surgical Oncology 11/22/17 Santiago Gilbert MD [address] [place] [address] Planner Chief Gastroenterology 11/22/17 Abbi Ventura MD [address] [place] [address] [address] [place] [address] Medical Oncologist/Resident Advisor Medical Oncology 12/03/18 Montse Thompson MD [address] [place] [address] Consulting Physician Gynecologic Oncology 12/03/18 Lela Hardy MD PhD [address] [facility] [address] [place] [address] Radiation Oncologist Radiation Oncology 12/23/18 Trena Obando MD [address] [place] [address] Consulting Physician Neurology 09/18/21 documented as of this encounter
--- OUTSIDE RECORDS SUMMARY | 2024-04-24 14:45 | XMS_ITS | Encounter Summary ---
Author Organization [facility] Address [address] [place] [address] Phone Care Team Providers Care Oil And Gas Exploration Technician Name Role Phone Aft, Kianna Machado MD PhD Unavailable [phone] Santiago Gilbert MD Unavailable [phone] Abbi Ventura MD Unavailable Montse Thompson MD Unavailable [phone] Lela Hardy MD PhD Unavailable [phone] Trena Obando MD Unavailable [phone] Dat Benito DO Primary Care Provider [phone] Encounter Details Date Type Department Care Team (Late st Contact Info) Description 01/24/2023 1:00 PM CDT Lab [facility] Oncology [address] [place] [address] Malignant neoplasm of upper-inner quadrant of left [...] on file Legal Sex Female 1:06 AM LICENSE REGISTRATION EXAMINER Gender Identity Not on file Sexual [...] 01/24/2023 documented in this encounter Care Teams Oil And Gas Exploration Technician Relationship Specialty Start Date End Date Dat Benito DO [address] [place] [address] PCP - General Internal Medicine 09/28/21 Aft, Kianna Machado MD PhD [address] [place] [address] Surgeon Surgical Oncology 11/22/17 Santiago Gilbert MD [address] [place] [address] Toy Maker Gastroenterology 11/22/17 Abbi [facility]ura MD [facility] [place] [address] Medical Oncologist/Restaurant Cashier Medical Oncology 12/03/18 Montse Thompson MD [address] [place] [address] Consulting Physician Gynecologic Oncology 12/03/18 Lela Hardy MD PhD [address] [place] [address] Radiation Oncologist Radiation Oncology 12/23/18 Trena Obando MD [address] [place] [address] Consulting Physician Neurology 09/18/21 documented as of this encounter
--- OUTSIDE RECORDS SUMMARY | 2024-04-24 14:45 | XMS_ITS | Encounter Summary ---
Author Organization [facility] Address [address] [place] [address] Phone Care Team Providers Care Luggage Repairer Name Role Phone Aft, Kianna Machado MD PhD Unavailable [phone] Santiago Gilbert MD Unavailable [phone] Abbi Ventura MD Unavailable Montse Thompson MD Unavailable [phone] Lela Hardy MD PhD Unavailable [phone] Trena Obando MD Unavailable [phone] Dat Benito DO Primary Care Provider [phone] Encounter Details Date Type Department Care Team (Late st Contact Info) Description 06/13/2023 Telephone [facility] Oncology [address] [place] [address] Cathy Guthrie Social History Tobacco Use Types [...] on file Legal Sex Female 1:06 AM SAAS ARCHITECT Gender Identity Not on file Sexual Orientation Not on file documented as of this encounter Miscellaneous Notes * Telephone Encounter - [place] Cathy - 06/13/2023 12:56 PM CST Lvm moved pt to waiting for a call back to confirm appt ARCHITECT documented in this encounter Plan of Treatment Not on file documented as of this encounter Visit Diagnoses Not on filedocumented in this encounter Care Teams Luggage Repairer Relationship Specialty Start Date End Date Dat Benito DO [address] [place] [address] PCP - General Internal Medicine 09/28/21 Aft, Kianna Machado MD PhD [address] [place] [address] Surgeon Surgical Oncology 11/22/17 Santiago Gilbert MD [address] [place] [address] It Consulting Manager Gastroenterology 11/22/17 Abbi Ventura MD [facility] [address] [place] [address] Medical Oncologist/Assistant Technician Medical Oncology 12/03/18 Montse Thompson MD [address] [place] [address] Consulting Physician Gynecologic Oncology 12/03/18 Lela Hardy MD PhD [address] [facility] [address] [place] [address] Radiation Oncologist Radiation Oncology 12/23/18 Trena Obando MD [address] [place] [address] Consulting Physician Neurology 09/18/21 documented as of this encounter
--- OUTSIDE RECORDS SUMMARY | 2024-04-24 14:45 | XMS_ITS | Encounter Summary ---
Author Organization [facility] Healthcare Address [address] [place] [address] Care Team Providers Care Concessions Manager Name Role Phone Aft, Kianna Machado MD PhD Unavailable [phone] Santiago Gilbert MD Unavailable [phone] Abbi Ventura MD Unavailable Montse Thompson MD Unavailable [phone] Lela Hardy MD PhD Unavailable [phone] Trena Obando MD Unavailable [phone] Dat Benito DO Primary Care Provider [phone] Encounter Details Date Type Department Care Team (Late st Contact Info) Description 07/04/2023 10:10 AM TANK FARM OPERATOR Lab [address] [address] Malignant neoplasm of upper-inner quadrant [...] on file Legal Sex Female 1:06 AM TANK FARM OPERATOR Gender Identity Not on file Sexual Orientation Not on file documented as of this encounter Plan of Treatment Not on file documented as of this encounter Procedures Procedure Name Priority Date/Time Associated Diagnosis Comments EGFR STAT 07/04/2023 10:10 AM TANK FARM OPERATOR Malignant neoplasm of upper-inner quadrant of left breast in female, 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) DIFFERENTIAL AUTO STAT 07/04/2023 10: 10 AM TANK FARM OPERATOR Malignant neoplasm of upper-inner quadrant of left breast in female, 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) CBC WITH AUTO DIFFERENTIAL STAT 07/04/2023 10:10 AM TANK FARM OPERATOR Malignant neoplasm of upper-inner quadrant of left breast in female, 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) CA 125 STAT 07/04/2023 10:10 AM TANK FARM OPERATOR Malignant neoplasm of upper-inner quadrant of left breast in female, 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 73 m2 [facility] Comment: Interpretive Data Reference Interval Normal [...] reviewed 2021. Blood 07/04/2023 10:1 0 AM TANK FARM OPERATOR 07/04/2023 10:16 AM TANK FARM OPERATOR us Abbi Ventura MD LAB BLOOD ORDERABLES Final Resul t [facility] Department [place] [address] * Differential, auto (07/04/2023 10:10 AM TANK FARM OPERATOR) Pathologist [facility] Neutrophil abs 5.3 1.5 - 6.5 K/cumm [facility] Comment:Testing performed by : [facility], [address] [place] [address] Imm gran abs 0.0 0.0 - 0.1 K/cumm [facility] Lymphocyte abs 1.5 0.8 - 3.3 K/cumm [facility] Monocyte abs 0.5 0.2 - 0.8 K/cumm [facility] Eosinophil abs 0.3 0.0 - 0.5 K/cumm [facility] Basophil abs 0.1 0.0 - 0.1 K/cumm [facility] Neutrophil pct 69.5 % [facility] Comment: Interpretive Data Percent cell count reference ranges are not reported, since discordance with absolute values may lead to misinterpretation of CBC data. Current Interpretive Data was last revised on 2017. Imm gran pct 0.3 % [facility] Comment: Interpretive Data Percent cell count reference ranges are not reported, since discordance with absolute values may lead to misinterpretation of CBC data. Current Interpretive Data was last revised on 2017. Lymphocyte pct 19.0 % [facility] Comment: Interpretive Data Percent cell count reference ranges are not reported, since discordance with absolute values may lead to misinterpretation of CBC data. Current Interpretive Data was last revised on 2017. Monocyte pct 5.9 % [facility] Comment: Interpretive Data Percent cell count reference ranges are not reported, since discordance with absolute values may lead to misinterpretation of CBC data. Current Interpretive Data was last revised on 2017. Eosinophil pct 4.4 % [facility] Comment: Interpretive Data Percent cell count reference ranges are not reported, since discordance with absolute values may lead to misinterpretation of CBC data. Current Interpretive Data was last revised on 2017. Basophil pct 0.9 % [facility] Comment: Interpretive Data Percent cell count reference ranges are not reported, since discordance with absolute values may lead to misinterpretation of CBC data. Current Interpretive Data was last revised on 2017. Blood 07/04/2023 10:1 0 AM TANK FARM OPERATOR 07/04/2023 10:16 AM TANK FARM OPERATOR us Abbi Ventura MD LAB BLOOD ORDERABLES Final Resul t [facility] Department [place] [address] * CEA (07/04/2023 10:10 AM TANK FARM OPERATOR) Pathologist [facility] CEA 1.5 <=5.0 ng/mL [facility] Comment: Interpretive Data: Reference Range: Non-Smokers: 0.0 ? 5.0 ng/mL Smokers: 0.0 ? 6.5 ng/mL The Bo CEA assay procedure was used. Results from different manufacturers or methods may not be comparable. Serial testing should be performed using the same method. Current interpretive data was last revised 2021. Blood 07/04/2023 10:1 0 AM TANK FARM OPERATOR 07/04/2023 12:29 PM TANK FARM OPERATOR us Abbi Ventura MD LAB BLOOD ORDERABLES Final Resul t [facility] Department [place] [address] * (ABNORMAL) CBC with auto differential (07/04/2023 10:10 AM TANK FARM OPERATOR) [facility] WBC 7.7 3.8 - 9.9 K/cumm [facility] Comment:Testing performed by : [address] [address] Hgb 11.7(L) 11.9 - 15.5 g/dL [facility] Comment:Testing performed by : [address] [address] Hct 36.4 35.6 - 45.5 % [facility] Comment:Testing performed by : [address] [address] Plt 171 150 - 400 K/cumm [facility] Comment:Testing performed by : [address] [address] MPV 9.1 9.1 - 12.3 fL [facility] RBC 4.02 3.90 - 5.20 M/cumm [facility] MCV 90.5 81.3 - 96.4 fL [facility] MCH 29.1 27.1 - 33.3 pg [facility] MCHC 32.1(L) 32.3 - 35.7 g/dL [facility] RDW CV 13.4 11.1 - 14.9 % [facility] RDW SD 44.4 35.7 - 48.1 fL [facility] NRBC abs 0.00 0.00 - 0.01 K/cumm [facility] Blood 07/04/2023 10:1 0 AM TANK FARM OPERATOR 07/04/2023 10:16 AM TANK FARM OPERATOR us Abbi Ventura MD LAB BLOOD ORDERABLES Final Resul t [facility] Department [place] [address] * (ABNORMAL) Comprehensive metabolic panel (07/04/2023 10:10 AM TANK FARM OPERATOR) Sodium 137 135 - 145 mmol/L [facility] Comment:Testing performed by : [facility], [address] [place] [address] Potassium, pl 4.3 3.3 - 4.9 mmol/L [facility] Chloride 106 97 - 110 mmol/L [facility] CO2 25 22 - 32 mmol/L [facility] Anion gap 6 2 - 15 mmol/L [facility] BUN 27(H) 6 - 25 mg/dL [facility] Creatinine 1.51(H) 0.60 - 1.10 mg/dL [facility] Glucose 160 70 - 199 mg/dL [facility] [...] 2022. Calcium 9.0 8.5 - 10.3 mg/dL [facility] Bilirubin, total 0.3 0.1 - 1.2 mg/dL [facility] Protein, pl 7.2 6.5 - 8.5 g/dL [facility] Albumin 4.1 3.5 - 5.0 g/dL [facility] Alk phos 98 40 - 130 Units/L [facility] ALT 8 7 - 45 Units/L [facility] AST 17 10 - 45 Units/L [facility] Blood 07/04/2023 10:1 0 AM TANK FARM OPERATOR 07/04/2023 10:16 AM TANK FARM OPERATOR Abbi Ventura MD LAB BLOOD ORDERABLES Final Resul t Performing Organization Address City/[facility] Co de Phone Number [facility] Department [place] [address] * CA 125 (07/04/2023 10:10 AM TANK FARM OPERATOR) CA 125 ag 7.0 0.0 - 38.1 units/mL [facility] Comment: Interpretive Data The Bo CA 125 assay procedure was used. Results from different manufacturers or methods may not be comparable. Serial testing should be performed using the same method. 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) Malignant neoplasm of descending colon documented in this encounter Care Teams Concessions Manager Relationship Specialty Start Date End Date Dat Benito DO [address] [place] [address] PCP - General Internal Medicine 09/28/21 Aft, Kianna Machado MD PhD [address] [place] [address] Surgeon Surgical Oncology 11/22/17 Santiago Gilbert MD [address] [place] [address] Director Account Management Gastroenterology 11/22/17 Abbi Ventura MD [address] [facility] [address] [place] [address] Medical Oncologist/Teacher Music Medical Oncology 12/03/18 Montse Thompson MD [address] [facility] [address] [place] [address] Consulting Physician Gynecologic Oncology 12/03/18 Lela Hardy MD PhD [address] [facility] [address] [place] [address] Radiation Oncologist Radiation Oncology 12/23/18 Trena Obando MD [address] [place] [address] Consulting Physician Neurology 09/18/21 documented as of this encounter
--- OUTSIDE RECORDS SUMMARY | 2024-04-24 14:45 | XMS_ITS | Encounter Summary ---
Author Organization [facility] Healthcare Address [address] [place] [address] Care Team Providers Care Tyre Finisher And Examiner Name Role Phone Aft, Kianna Machado MD PhD Unavailable [phone] Santiago Gilbert MD Unavailable [phone] Abbi Ventura MD Unavailable Montse Thompson MD Unavailable [phone] Lela Hardy MD PhD Unavailable [phone] Trena Obando MD Unavailable [phone] Dat Benito DO Primary Care Provider [phone] Encounter Details Date Type Department Care Team (Late st Contact Info) Description 07/15/2023 Telephone Radiology 1 [place] [address] Corwin Yuen MD [address] [facility] [address] [place] [address] Social History Tobacco Use Types [...] file Legal Sex Female 1:06 AM LIFE INSURANCE ACTUARY Gender Identity Not on file Sexual Orientation [...] on filedocumented in this encounter Care Teams Tyre Finisher And Examiner Relationship Specialty Start Date End Date Dat Benito DO [address] [place] [address] PCP - General Internal Medicine 09/28/21 Aft, Kianna Machado MD PhD [address] [place] [address] Surgeon Surgical Oncology 11/22/17 Santiago Gilbert MD [address] [place] [address] Environmental Services Manager Gastroenterology 11/22/17 Abbi Ventura MD [address] [place], [place] [address] Medical Oncologist/Stockroom Associate Medical Oncology 12/03/18 Montse Thompson MD [address] [place], [place] [address] Consulting Physician Gynecologic Oncology 12/03/18 Lela Hardy MD PhD [address] [facility] [address] [place] [address] Radiation Oncologist Radiation Oncology 12/23/18 Trena Obando MD [address] [place] [address] Consulting Physician Neurology 09/18/21 documented as of this encounter
--- OUTSIDE RECORDS SUMMARY | 2024-04-24 14:45 | XMS_ITS | Encounter Summary ---
Author Organization [facility] Address [address] [place] [address] Phone Care Team Providers Care Equipment Installer Name Role Phone Aft, Kianna Machado MD PhD Unavailable [phone] Santiago Gilbert MD Unavailable [phone] Abbi Ventura MD Unavailable Montse Thompson MD Unavailable [phone] Lela Hardy MD PhD Unavailable [phone] Trena Obando MD Unavailable [phone] Dat Benito DO Primary Care Provider [phone] Encounter Details Date Type Department Care Team (Late st Contact Info) Description 06/25/2023 Orders Only [facility] Gastroenterology [facility] Medical Office Building [address], [address] [place] [address] Roe Fofana MD [address] [place] [address] Social History Tobacco Use Types [...] on file Legal Sex Female 1:06 AM EMERGENCY MEDICAL SERVICE COORDINATOR Gender Identity Not on file Sexual Orientation Not on file documented as of this encounter Plan of Treatment Not on file documented as of this encounter Visit Diagnoses Not on filedocumented in this encounter Care Teams Equipment Installer Relationship Specialty Start Date End Date Dat Benito DO [address] [place] [address] PCP - General Internal Medicine 09/28/21 Aft, Kianna Machado MD PhD [address] [place] [address] Surgeon Surgical Oncology 11/22/17 Santiago Gilbert MD [address] [place] [address] Tool Pusher Gastroenterology 11/22/17 Abbi Ventura MD [facility] [address] [place] [address] Medical Oncologist/School Psychometrist Medical Oncology 12/03/18 Montse Thompson MD [address] [place] [address] Consulting Physician Gynecologic Oncology 12/03/18 Lela Hardy MD PhD [address] [place] [address] Radiation Oncologist Radiation Oncology 12/23/18 Trena Obando MD [address] [place] [address] Consulting Physician Neurology 09/18/21 documented as of this encounter
--- OUTSIDE RECORDS SUMMARY | 2024-04-24 14:45 | XMS_ITS | Encounter Summary ---
Author Organization [facility] Address [address] [place] [address] Phone Care Team Providers Care Vp Analysis Name Role Phone AileentKianna MD PhD Unavailable [phone] Santiago Gilbert MD Unavailable [phone] Abbi Ventura MD Unavailable Montse Thompson MD Unavailable [phone] Lela Hardy MD PhD Unavailable Trena Obando MD Unavailable [phone] Dat Benito DO Primary Care Provider [phone] Encounter Details Date Type Department Care Team (Late st Contact Info) Description 07/13/2023 Telephone [facility] Surgery [facility] Advanced Medicine 5th [place] [address] [place] [address] Kianna Bnuch MD PhD [address] [place] [address] Social History Tobacco Use Types [...] on file Legal Sex Female 1:06 AM SPINNING MULE OPERATOR Gender Identity Not on file Sexual Orientation Not on file documented as of this encounter Miscellaneous Notes * Telephone Encounter - Kianna Bunch MD PhD - 07/13/2023 12:[address] dw pt will have drain placed by IR. NING MULE OPERATOR documented in this encounter Plan of Treatment Not on file documented as of this encounter Visit Diagnoses Not on filedocumented in this encounter Care Teams Vp Analysis Relationship Specialty Start Date End Date Dat Benito DO [address] [place] [address] PCP - General Internal Medicine 09/28/21 Kianna Bunch MD PhD [address] [place] [address] Surgeon Surgical Oncology 11/22/17 Santiago Gilbert MD [address] [place] [address] Court Worker Gastroenterology 11/22/17 Abbi Ventura MD [address] [place] [address] [address] [place] [address] Medical Oncologist/Linen Folder Medical Oncology 12/03/18 Montse Thompson MD [address] [facility] [address] [place] [address] Consulting Physician Gynecologic Oncology 12/03/18 Lela Hardy MD PhD [address] [facility] [address] [place] [address] Radiation Oncologist Radiation Oncology 12/23/18 Trena Obando MD [facility] [address] [place] [address] Consulting Physician Neurology 09/18/21 documented as of this encounter
--- OUTSIDE RECORDS SUMMARY | 2024-04-24 14:45 | XMS_ITS | Encounter Summary ---
Author Organization [facility] Healthcare Address [address] [place] [address] Care Team Providers Care Senior Loss Control Specialist Name Role Phone Aft, Kianna Machado MD PhD Unavailable [phone] Santiago Gilbert MD Unavailable [phone] Abbi Ventura MD Unavailable Montse Thompson MD Unavailable [phone] Lela Hardy MD PhD Unavailable [phone] Trena Obando MD Unavailable [phone] Dat Benito DO Primary Care Provider [phone] Reason for Referral * MRI/CAT/PET Scan (Routine) - Closed Specialty Diagnoses / Procedures Referred By 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) Procedures CT Chest Abdomen Pelvis W Contrast Abbi Ventura MD 10 [facility] [address] [place] [address] Phone: tel: fax: [facility] Referral ID Status Reason Start Date Expiration Date Visits Re quested Visits Authorized [id number] Closed 10/25/2022 11/24/2023 1 1 Reason for Visit * MRI/CAT/PET Scan (Routine) - Closed Specialty Diagnoses / Procedures Referred By Vijaya t Referred To Contact Radiology Diagnoses Malignant neoplasm of upper-inner quadrant of left breast in female, 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) Procedures CT Chest Abdomen Pelvis W Contrast Abbi Ventura MD [address] [facility] [address] [place] [address] Phone: tel: fax: [facility] Referral ID Status Reason Start Date Expiration Date Visits Re quested Visits Authorized [id number] Closed 10/25/2022 11/24/2023 1 1 Encounter Details Date Type Department Care Team (Latest Contact Info) Description 01/24/2023 11:03 AM CDT - 01/24/2023 11:59 PM CDT Hospital Encounter [facility] Radiology at [facility] [address] [place] [address] Malignant neoplasm of upper-inner quadrant [...] on file Legal Sex Female 1:06 AM VOCAL ARTIST Gender Identity Not on file Sexual [...] POC 1.5(H) 0.6 - 1.1 mg/dL [facility] Blood 01/24/2023 11:1 5 AM CDT 01/24/2023 11:15 AM CDT us Abbi Ventura MD LAB POCT ORDERABLES - DEVICE Fin al Result [facility] [place] [address] documented in this encounter Visit Diagnoses Diagnosis [...] 1 documented in this encounter Care Teams Senior Loss Control Specialist Relationship Specialty Start Date End Date Dat Benito DO [address] [place] [address] PCP - General Internal Medicine 09/28/21 Aft, Kianna Machado MD PhD [address] [place] [address] Surgeon Surgical Oncology 11/22/17 Santiago Gilbert MD [address] [place] [address] Glass Cleaning Machine Tender Gastroenterology 11/22/17 Abbi Ventura MD [facility] [address] [place] [address] Medical Oncologist/Press Tender Incendiary Grenade Medical Oncology 12/03/18 Montse Thompson MD [address] [place] [address] Consulting Physician Gynecologic Oncology 12/03/18 Lela Hardy MD PhD [address] [place] [address] Radiation Oncologist Radiation Oncology 12/23/18 Trena Obando MD [address] [place] [address] Consulting Physician Neurology 09/18/21 documented as of this encounter
--- OUTSIDE RECORDS SUMMARY | 2024-04-24 14:45 | XMS_ITS | Encounter Summary ---
Author Organization [facility] Address [address] [place] [address] Phone Care Team Providers Care Manager Desktop Name Role Phone Aft, Kianna Machado MD PhD Unavailable Santiago Gilbert MD Unavailable [phone] Abbi Ventura MD Unavailable Montse Thompson MD Unavailable [phone] Lela Hardy MD PhD Unavailable [phone] Trena Obando MD Unavailable [phone] Dat Benito DO Primary Care Provider [phone] Encounter Details Date Type Department Care Team (Late st Contact Info) Description 02/19/2023 Orders Only [facility] Pulmonary [address] [facility] Advanced Medicine 8th [place] [address] [place] [address] Cristobal Dong MD [address] [place] [address] Social History Tobacco Use Types [...] on file Legal Sex Female 1:06 AM PET RESORT CONCIERGE Gender Identity Not on file Sexual [...] documented as of this encounter Care Teams Manager Desktop Relationship Specialty Start Date End Date Dat Benito DO [address] [place] [address] PCP - General Internal Medicine 09/28/21 AftKianna MD PhD [address] [place] [address] Surgeon Surgical Oncology 11/22/17 Santiago Gilbert MD [address] [place] [address] Doughnut Fryer Gastroenterology 11/22/17 Abbi Ventura MD [address] [facility] [address] [place] [address] Medical Oncologist/Animal Physiology Teacher Medical Oncology 12/03/18 Montse Thompson MD [address] [facility] [address] [place] [address] Consulting Physician Gynecologic Oncology 12/03/18 Lela Hardy MD PhD [address] [facility] [address] [place] [address] Radiation Oncologist Radiation Oncology 12/23/18 Trena Obando MD [address] [place] [address] Consulting Physician Neurology 09/18/21 documented as of this encounter
--- OUTSIDE RECORDS SUMMARY | 2024-04-24 14:45 | XMS_ITS | Encounter Summary ---
Author Organization [facility] Address [address] [place] [address] Phone Care Team Providers Care Food Production Machine Operator Name Role Phone Aft, Kianna Machado MD PhD Unavailable [phone] Santiago Gilbert MD Unavailable [phone] Abbi Ventura MD Unavailable Montse Thompson MD Unavailable [phone] Lela Hardy MD PhD Unavailable [phone] Trena Obando MD Unavailable [phone] Dat Benito DO Primary Care Provider [phone] Encounter Details Date Type Department Care Team (Late st Contact Info) Description 07/04/2023 11:00 AM FRAME MAKER Office Visit [facility] [address] [place] [address] Abbi Ventura MD 10 [facility] [address] [place], [place] [id number] Malignant neoplasm of descending colon (CMS/HCC) (HCC) [...] file Legal Sex Female 1:06 AM FRAME MAKER Gender Identity Not on file Sexual Orientation Not on file documented as of this encounter Last Filed Vital Signs Vital Sign Reading Time Taken Comments Blood Pressure 115/62 07/04/2023 11:19 AM FRAME MAKER Pulse 80 07/04/2023 11:19 AM FRAME MAKER Temperature 36.6 ??C (97.9 ??F) 07/04/2023 1 1:19 AM FRAME MAKER Respiratory Rate 17 07/04/2023 11:1 9 AM FRAME MAKER Oxygen Saturation 98% 07/04/2023 11: 19 AM FRAME MAKER Inhaled Oxygen Concentration - - Weight 103.1 kg (227 lb 3.2 oz) 024 11:19 AM FRAME MAKER Height - - Body Mass Index 33.55 06/27/2023 12:52 PM FRAME MAKER documented in this encounter Progress Notes * [...] positive and VUS in BRIP1 and NBN. [employer] ([employer]) My risk showed no mutation in MLH [...] node biopsy on 01/14/[address] Kianna Bunhc, pathology revealed invasive ductal carcinoma, measauring 3.5 [...] had COVID when she got back from [place] and her whole left side was tingling. [...] radiology and pathology reviewed in [facility] ASSESSMENT: Stage I [id number] right breast cancer -ER negative VA negative [...] peritoneal carcinomatosis F/u Dr. Gilbert, her local registered nursing professor, colonoscopy completed 04/09/2022 and repeat in [address] CAP negative we will stop ordering routine scans as she is 5 yrs out from colon cancer diagnosis. Aleah Gerber will follow up as directed above, she was encouraged to call in the interim with questions or concerns. We will continue to monitor and review for side effects from treatment. Abbi Ventura MD executive pastry chef Division of Oncology Section of Medical Oncology [facility] Gas Operations Superintendent completed by using [employer] speaking software, therefore, transcriptionvariances may occur. E MAKER documented in this encounter Plan of Treatment Not on file documented as of this encounter Results * (ABNORMAL) Comprehensive metabolic panel (02/05/2024 3:00 PM CDT) Sodium 139 135 - 145 mmol/L Comment:Testing performed by : [facility], [address] [place] [address] Potassium, pl 4.0 3.3 - 4.9 mmol/L [facility] Chloride 109 97 - 110 mmol/L [facility] CO2 24 22 - 32 mmol/L [facility] Anion gap 6 2 - 15 mmol/L [facility] BUN 24 6 - 25 mg/dL [facility] Creatinine 1.69(H) 0.60 - 1.10 mg/dL [facility] Glucose 105 70 - 199 mg/dL [facility] Comment: Interpretive Data Fasting glucose [...] 2022. Calcium 9.1 8.5 - 10.3 mg/dL [facility] Bilirubin, total 0.4 0.1 - 1.2 mg/dL [facility] Protein, pl 7.0 6.5 - 8.5 g/dL [facility] Albumin 4.5 3.5 - 5.0 g/dL [facility] Alk phos 72 40 - 130 Units/L [facility] ALT 11 7 - 45 Units/L [facility] AST 18 10 - 45 Units/L [facility] Blood 02/05/2024 3:00 PM CDT 02/05/2024 3:00 PM CDT Abbi Ventura MD LAB BLOOD ORDERABLES Final Resul t Performing Organization Address [facility] de Phone Number [facility] [place] [address] * CEA (02/05/2024 3:00 PM CDT) CEA [...] ORDERABLES Final Resul t Performing Organization Address City/[facility]/ZIP Co de Phone Number [facility] [place] [address] * CA 125 (02/05/2024 3:00 PM CDT) CA 125 ag 8.0 0.0 - 38.1 units/mL Comment: Interpretive Data The Bo CA 125 assay procedure was used. Results from different manufacturers or methods may not be comparable. Serial testing should be performed using the same method. Blood 02/05/2024 3:00 PM CDT 02/05/2024 7:10 PM CDT Abbi Ventura MD LAB BLOOD ORDERABLES Final Resul t [facility] [place] [address] * (ABNORMAL) CBC with auto differential (02/05/2024 3:00 PM CDT) [facility] WBC 9.0 3.8 - 9.9 K/cumm Comment:Testing performed by : [address] [address] Hgb 11.1(L) 11.9 - 15.5 g/dL [facility] Comment:Testing performed by : [address] [address] Hct 35.0(L) 35.6 - 45.5 % [facility] Comment:Testing performed by : [address] [address] Plt 179 150 - 400 K/cumm [facility] Comment:Testing performed by : [address] [address] MPV 9.6 9.1 - 12.3 fL [facility] RBC 3.85(L) 3.90 - 5.20 M/cumm [facility] MCV 90.9 81.3 - 96.4 fL [facility] MCH 28.8 27.1 - 33.3 pg [facility] MCHC 31.7(L) 32.3 - 35.7 g/dL [facility] RDW CV 13.6 11.1 - 14.9 % [facility] RDW SD 45.3 35.7 - 48.1 fL [facility] NRBC abs 0.00 0.00 - 0.01 K/cumm [facility] Blood 02/05/2024 3:00 PM CDT 02/05/2024 3:00 PM CDT us Abbi Ventura MD LAB BLOOD ORDERABLES Final Resul t [facility] Department [place] [address] documented in this encounter Visit Diagnoses Diagnosis [...] 02/05/2024 documented in this encounter Care Teams Food Production Machine Operator Relationship Specialty Start Date End Date Dat Benito DO [address] [place] [address] PCP - General Internal Medicine 09/28/21 Aft, Kianna Machado MD PhD [address] [place] [address] Surgeon Surgical Oncology 11/22/17 Santiago Gilbert MD [address] [place] [address] Hockey Instructor Gastroenterology 11/22/17 Abbi [facility]ura MD [facility] [address] [place] [address] Medical Oncologist/Assistant Counsel Medical Oncology 12/03/18 Montse Thompson MD [facility] [address] [address] [place] [address] Consulting Physician Gynecologic Oncology 12/03/18 Lela Hardy MD PhD [address] [place] [address] Radiation Oncologist Radiation Oncology 12/23/18 Trena Obando MD [address] [place] [address] Consulting Physician Neurology 09/18/21 documented as of this encounter
--- OUTSIDE RECORDS SUMMARY | 2024-04-24 14:45 | XMS_ITS | Encounter Summary ---
Author Organization [facility] Healthcare Address [address] [place] [address] Care Team Providers Care X Ray Service Engineer Name Role Phone Kianna Bunch MD PhD Unavailable [phone] Santiago Gilbert MD Unavailable [phone] Abbi Ventura MD Unavailable Montse Thompson MD Unavailable Lela Hardy MD PhD Unavailable Trena Obando MD Unavailable [phone] Dat Benito DO Primary Care Provider [phone] Reason for Referral * MRI/CAT/PET Scan (Routine) - Closed Specialty Diagnoses / Procedures Referred By Contac t Referred To Contact Radiology Diagnoses Malignant neoplasm of upper-inner quadrant of left breast in female, estrogen receptor negative (HCC) H/O bilateral mastectomy Localized swelling of chest wall Procedures CT Chest W Contrast Kianna Bunch MD PhD [address] [place] [address] Phone: tel: fax: [address] [address] Referral ID Status Reason Start Date Expiration Date Visits Re quested Visits Authorized [id number] Closed 07/05/2023 08/03/2024 1 1 PHONER Reason for Visit * MRI/CAT/PET Scan (Routine) - Closed Specialty Diagnoses / Procedures Referred By Contac t Referred To Contact Radiology Diagnoses Malignant neoplasm of upper-inner quadrant of left breast in female, estrogen receptor negative (HCC) H/O bilateral mastectomy Localized swelling of chest wall Procedures CT Chest W Contrast Kianna Bunch MD PhD [address] [place] [address] Phone: tel: fax: [address] [address] Referral ID Status Reason Start Date Expiration Date Visits Re quested Visits Authorized [id number] Closed 07/05/2023 08/03/2024 1 1 Encounter Details Date Type Department Care Team (Latest Contact Info) Description 07/11/2023 12:19 PM TELEPHONER - 07/11/2023 11:59 PM TELEPHONER Hospital Encounter [facility] [address] [place] [address] Kianna Bunch MD PhD [address] [place] [address] Malignant neoplasm of upper-inner quadrant of left [...] on file Legal Sex Female 1:06 AM TELEPHONER Gender Identity Not on file Sexual Orientation [...] Read Routine (OP Routine) 07/11/2023 1:19 PM TELEPHONER Malignant neoplasm of upper-inner quadrant of left breast in female, estrogen receptor negative (HCC) H/O bilateral mastectomy Localized swelling of chest wall POCT CREATININE - DEVICE Routine 07/11/2023 12:59 PM TELEPHONER documented in this encounter Results * CT Chest W Contrast (07/11/2023 1:19 PM TELEPHONER) Anatomical Region Laterality Modality Body N/A Computed Tomogra phy 07/11/2023 2:48 PM TELEPHONER Impressions 07/11/2023 8:45 PM TELEPHONER 1. ??Postsurgical changes of bilateral mastectomy with [...] Dat Wright M.D. Narrative 07/11/2023 8:45 PM TELEPHONER EXAMINATION: CT CHEST W CONTRAST HISTORY: Left [...] * (ABNORMAL) POCT creatinine (07/11/2023 12:59 PM TELEPHONER) Creatinine POC 1.4(H) 0.6 - 1.1 mg/dL Blood 07/11/2023 12:5 9 PM TELEPHONER 07/11/2023 12:59 PM TELEPHONER us Kianna Bunch MD PhD LAB POCT ORDERABLES - ROSEMARY CE Final Result [facility] Department [place] [address] documented in this encounter Visit [...] 1 dose Contrast Given 07/11/2023 1:14 PM TELEPHONER 75 mL documented in this encounter Orders Medications Ordered That [place] ht Not Have Been Administered Count Last Ordered Date First Ordered Date ioversoL (OPTIRAY 350) injection 100 mL 1 0 07/11/2023 documented in this encounter Care Teams X Ray Service Engineer Relationship Specialty Start Date End Date Dat Benito DO [address] [place] [address] PCP - General Internal Medicine 09/28/21 Aft, Kianna Machado MD PhD [address] [place] [address] Surgeon Surgical Oncology 11/22/17 Santiago Gilbert MD [address] [place] [address] Unemployment Insurance Director Gastroenterology 11/22/17 Abbi Ventura MD 10 [facility] [address] [place] [address] Medical Oncologist/Sanitation Technician Medical Oncology 12/03/18 Montse Thompson MD 10 [facility] [address] [place] [address] Consulting Physician Gynecologic Oncology 12/03/18 Lela Hardy MD PhD 10 [facility] [address] [place] [address] Radiation Oncologist Radiation Oncology 12/23/18 Trena Obando MD [address] [place] [address] Consulting Physician Neurology 09/18/21 documented as of this encounter
--- OUTSIDE RECORDS SUMMARY | 2024-04-24 14:45 | XMS_ITS | Encounter Summary ---
Author Organization [facility] Address [address] [place] [address] Phone Care Team Providers Care Cover Seamer Name Role Phone AileentKianna MD PhD Unavailable [phone] Santiago Gilbert MD Unavailable [phone] Abbi Ventura MD Unavailable Montse Thompson MD Unavailable [phone] Lela Hardy MD PhD Unavailable [phone] Trena Obando MD Unavailable [phone] Dat Benito DO Primary Care Provider [phone] Reason for Referral * Diagnostic Imaging (Routine) - Closed Specialty Diagnoses / Procedures Referred By Contronny t Referred To Contact Radiology Diagnoses Malignant neoplasm of upper-inner quadrant of left breast in female, estrogen receptor negative (HCC) Procedures IR Fluid Drain Soft Tissue AftKianna MD PhD [address] [place] [address] Phone: tel: fax: [address] [address] Referral ID Status Reason Start Date Expiration Date Visits Re quested Visits Authorized [id number] Closed 07/15/2023 08/13/2024 1 1 Encounter Details Date Type Department Care Team (Late st Contact Info) Description 07/15/2023 Telephone [facility] [address] [facility] [address] [place] [address] [place] [address] Aft, Kianna Machado MD PhD [address] [place] [address] Social History Tobacco Use Types [...] file Legal Sex Female 1:06 AM CLINICAL ACCOUNT EXECUTIVE Gender Identity Not on file Sexual Orientation Not on file documented as of this encounter Miscellaneous Notes * Telephone Encounter - Breanna Ignacio RN - 07/15/2023 9:10 AM CDT Order placed for IR fluid drain / drain placement today. Attempted to reach patient - no answer, LMOR (will send CuPcAkE & other things you bake with the same information provided here) Her chart is being reviewed with the interventional radiologists in between their cases - it will look like she has an appointment but it has not been scheduled. Once they review her chart, they willcall me with a time and date. Waiting for patient to call back / respond to CuPcAkE & other things you bake message. * Telephone Encounter - Breanna Ignacio RN - 07/15/2023 8:57 AM CDT ----- Message from Kianna Bunch MD PhD sent at 07/13/2023 12:34 PM CLINICAL ACCOUNT EXECUTIVE ----- Please schedule left mastectomy drain by IR. Please have them send the fluid for cytology. Thank you! ----- Message ----- From: Interface, Radiology Results In Sent: 07/11/2023 8:47 PM CLINICAL ACCOUNT EXECUTIVE To: Kianna Bunch MD PhD documented in [...] was obtained. ??Prior to beginning the procedure, Windsor Protocol was used to confirm the patient's [...] dilating the tract to ??10 Fr. ??A 12-Montenegrin Cook catheter was then advanced over the [...] was obtained. Prior to beginning the procedure, Windsor Protocol was used to confirm the patient's [...] dilating the tract to 10 Fr. A 12-Montenegrin Cook catheter was then advanced over the [...] (HCC) documented in this encounter Care Teams Cover Seamer Relationship Specialty Start Date End Date Dat Benito DO [address] [place] [address] PCP - General Internal Medicine 09/28/21 Kianna Bunch MD PhD [address] [place] [address] Surgeon Surgical Oncology 11/22/17 Santiago Gilbert MD [address] [place] [address] Wrapper Off Gastroenterology 11/22/17 Abbi Ventura MD [address] [facility] [address] [place] [address] Medical Oncologist/Balance Wheel Motion Inspector Medical Oncology 12/03/18 Montse Thompson MD [address] [facility] [address] [place] [address] Consulting Physician Gynecologic Oncology 12/03/18 Lela Hardy MD PhD [address] [facility] [address] [place], [place] [id number] Radiation Oncologist Radiation Oncology 12/23/18 Trena Obando MD [address] [place], [place] [address] Consulting Physician Neurology 09/18/21 documented as of this encounter
--- OUTSIDE RECORDS SUMMARY | 2024-04-24 14:45 | XMS_ITS | Encounter Summary ---
Author Organization [facility] Healthcare Address [address] [place] [address] Care Team Providers Care Food Specialist Name Role Phone Aft, Kianna Machado MD PhD Unavailable [phone] Santiago Gilbert MD Unavailable [phone] Abbi Ventura MD Unavailable Montse Thompson MD Unavailable [phone] Lela Hardy MD PhD Unavailable [phone] Trena Obando MD Unavailable [phone] Dat Benito DO Primary Care Provider [phone] Encounter Details Date Type Department Care Team (Latest Contact Info) Description 05/02/2023 11:02 AM SITE INTERPRETER - 05/02/2023 11:59 PM [facility] Hospital Encounter [address] [id number] COPD exacerbation (HCC) Discharge Disposition: Discharge to [...] on file Legal Sex Female 1:06 AM SITE INTERPRETER Gender Identity Not on file Sexual Orientation [...] 05/02/2023 4:33 PM CST Viewed on Mychart INTERPRETER * Result Encounter Note - Radha Santos NP - 05/02/2023 3:41 PM CST Please notify patient of negative COVID-19/RSV/FLU test. Patient should rest, stay hydrated, and take OTC medications as needed. Monitor symptoms and if they worsen follow up with primary care doctoror ER if needed. INTERPRETER documented in this encounter Plan of Treatment Not on file documented as of this encounter Procedures Procedure Name Priority Date/Time Associated Diagnosis Comments INFLUENZA A/B, RSV, AND COVID-19 PCR Routine 05/02/2023 11:02 AM SITE INTERPRETER COPD exacerbation (HCC) documented in this encounter Results * Influenza A/B, RSV, and COVID-19 PCR Nasopharyngeal (05/02/2023 11:02 AM SITE INTERPRETER) COVID-19 RNA Negative Negative [facility] Influenza A RNA Negative Negative [facility] Influenza B RNA Negative Negative [facility] RSV RNA Negative Negative [facility] Comment: Interpretive data: Testing performed by [facility]. This test is performed using the [employer] Xpert Xpress CoV-2/Flu/RSV plus assay. This is a multiplex, real-time reverse transcriptase PCR assay intended for the qualitative detection of nucleic acid from SARS-CoV-2, influenza A, influenza B, and respiratory syncytial virus. This assay has been cleared by the [place] Food and Drug administration. The performance characteristics have been verified by the [facility]. ??Results must be considered in the clinical context, and a negative result does not rule out infection. Interpretive Data last revised 2023 Nasopharyngeal 05/02/2023 11 :02 AM SITE INTERPRETER 05/02/2023 2:33 PM SITE INTERPRETER Narrative [facility] - 05/02/2023 3:36 PM SITE INTERPRETER Is the Patient experiencing symptoms consistent with COVID?->Yes Date of Symptom Onset->04/25/23 Reason for testing?->Symptomatic Is the patient experiencing any symptoms consistent with COVID (eg. Fever, cough, shortness of breath)?->Yes What is the reason for testing?->Symptoms of COVID-19 in high-risk group??(Rapid) Radha Santos BINDING END STITCHER LAB MICROBIOLOGY - GENERAL ORD ERABLES Final Result [facility] [address] Department [place] [address] documented in this encounter Visit Diagnoses Diagnosis COPD exacerbation (HCC) Obstructive chronic bronchitis with exacerbation documented in this encounter Additional Health Concerns Infection Onset Date Last Indicated Resolved Time COVID: Suspected 05/02/2023 05/02/2023 05/02/2023 3:37 PM SITE INTERPRETER documented as of this encounter Care Teams Food Specialist Relationship Specialty Start Date End Date Dat Benito DO [address] [place] [address] PCP - General Internal Medicine 09/28/21 Aft, Kianna Machado MD PhD [address] [place] [address] Surgeon Surgical Oncology 11/22/17 Santiago Gilbert MD [address] [place] [address] Recruiter Manager Gastroenterology 11/22/17 Abbi Ventura MD [address] [place] [address] [address] [place] [address] Medical Oncologist/Sustainable Development Policy Analyst Medical Oncology 12/03/18 Montse Thompson MD [address] [place] [address] [address] [place] [address] Consulting Physician Gynecologic Oncology 12/03/18 Lela Hardy MD PhD [address] [place] [address] [address] [place] [address] Radiation Oncologist Radiation Oncology 12/23/18 Trena Obando MD [address] [place] [address] Consulting Physician Neurology 09/18/21 documented as of this encounter
--- OUTSIDE RECORDS SUMMARY | 2024-04-24 14:45 | XMS_ITS | Encounter Summary ---
Author Organization [facility] Address [address] [place] [address] Phone Care Team Providers Care Marine Insulator Name Role Phone Aft, Kianna Machado MD PhD Unavailable [phone] Santiago Gilbert MD Unavailable [phone] Abbi Ventura MD Unavailable Montse Thompson MD Unavailable [phone] Lela Hardy MD PhD Unavailable [phone] Trena Obando MD Unavailable [phone] Dat Benito DO Primary Care Provider [phone] Reason for Referral * MRI/CAT/PET Scan (Routine) - Closed Specialty Diagnoses / Procedures Referred By Contac t Referred To Contact Radiology Diagnoses Malignant neoplasm of upper-inner quadrant of left breast in female, 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) Procedures MRI Brain W WO Contrast Abbi Ventura MD [address] [facility] [address] [place] [address] Phone: tel: fax: [facility] Referral ID Status Reason Start Date Expiration Date Visits Re quested Visits Authorized [id number] Closed 01/24/2023 02/23/2024 1 1 Encounter Details Date Type Department Care Team (Late st Contact Info) Description 01/24/2023 1:30 PM CDT Office Visit [facility] Oncology [address] [place] [address] Jenny Quigley NP [address] [place] [address] Malignant neoplasm of upper-inner quadrant of left [...] on file Legal Sex Female 1:06 AM PRESTIDIGITATOR Gender Identity Not on file Sexual Orientation [...] positive and VUS in BRIP1 and NBN. Chinese Online risk showed no mutation in MLH 1 or PMS2 suggesting that the patient does not have Grullon syndrome. 4. Allergic reaction to oxaliplatin during cycle 6 of FOLFOX 5. DYPD genotype normal. 6. DVT/PE diagnosed 05/28/18 7. 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 Partial mastectomy and [...] 04/13/22 showed invasive ductal carcinoma. ER negative MD negative Her 2 negative Bilateral mastectomy 05/22/22 [...] ovarian cancer status post bilateral mastectomy and hysterectomy/[id number]-[id number] TECHNIQUE: Transaxial computed tomographic images of the [...] pathology reviewed in [facility] ASSESSMENT: Stage I [id number] right breast cancer -ER negative MD negative Her 2 negative- Mammaprint could not be done due to insufficient tumor. 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 Gilbert, her local melt helper, regarding screening colonoscopy CT CAP negative we will stop ordering routine scans as she will be 5 yrs out from colon cancer diagnosis. We will continue to monitor and review for side effects from treatment. The patient is in agreementwith this plan of care and will call us in the interim with questions. Jenny Quigley MSN SUPERVISOR AGENCY APPOINTMENTS AIRPORT CONTROL OPERATOR-C Division of Medical Oncology [facility] documented in this encounter Plan of Treatment Not on file documented as of this encounter Results * (ABNORMAL) Comprehensive metabolic panel (04/11/2023 12:52 PM PRESTIDIGITATOR) Sodium 139 135 - 145 mmol/L [facility] Comment:Testing performed by : [facility], [address] [place] [address] Potassium, pl 4.2 3.3 - 4.9 mmol/L [facility] Chloride 109 97 - 110 mmol/L [facility] CO2 26 22 - 32 mmol/L [facility] Anion gap 4 2 - 15 mmol/L [facility] BUN 24 6 - 25 mg/dL [facility] Creatinine 1.41(H) 0.60 - 1.10 mg/dL [facility] Glucose 116 70 - 199 mg/dL [facility] [...] 2022. Calcium 9.2 8.5 - 10.3 mg/dL [facility] Bilirubin, total 0.4 0.1 - 1.2 mg/dL [facility] Protein, pl 7.2 6.5 - 8.5 g/dL [facility] Albumin 4.3 3.5 - 5.0 g/dL [facility] Alk phos 90 40 - 130 Units/L [facility] ALT 11 7 - 45 Units/L [facility] AST 18 10 - 45 Units/L [facility] Blood 04/11/2023 12:5 2 PM PRESTIDIGITATOR 04/11/2023 12:53 PM PRESTIDIGITATOR Abbi Ventura MD LAB BLOOD ORDERABLES Final Resul t Performing Organization Address [facility] de Phone Number [facility] Department [employer] [place] [address] * CA 125 (04/11/2023 12:52 PM PRESTIDIGITATOR) CA 125 ag 7.4 0.0 - 38.1 units/mL [facility] Comment: Interpretive Data The Bo CA 125 assay procedure was used. Results from different manufacturers or methods may not be comparable. Serial testing should be performed using the same method. Blood 04/11/2023 12:5 2 PM PRESTIDIGITATOR 04/11/2023 2:35 PM PRESTIDIGITATOR Abbi Ventura MD LAB BLOOD ORDERABLES Final Resul t Performing Organization Address City/[facility]/ZIP Co de Phone Number [facility] Department [place] [address] * (ABNORMAL) CBC with auto differential (04/11/2023 12:52 PM PRESTIDIGITATOR) [facility] WBC 7.1 3.8 - 9.9 K/cumm [facility] Comment:Testing performed by : [address] [address] Hgb 11.9 11.9 - 15.5 g/dL [facility] Comment: Testing performed by: [address] [address] Interpretive Data A reference range for this assay has not been established for patients with an unknown legal sex. Please refer to the laboratory test catalog for established sex-specific reference intervals. Current interpretive data was last revised on 2023. Hct 37.4 35.6 - 45.5 % [facility] Comment: Testing performed by: [facility], [address] [place] [address] Interpretive Data A reference range for this assay has not been established for patients with an unknown legal sex. Please refer to the laboratory test catalog for established sex-specific reference intervals. Current interpretive data was last revised on 2023. Plt 176 150 - 400 K/cumm [facility] Comment:Testing performed by : [address] [address] MPV 9.0(L) 9.1 - 12.3 fL [facility] RBC 4.13 3.90 - 5.20 M/cumm [facility] Comment: Interpretive Data A reference range for this assay has not been established for patients with an unknown legal sex. Please refer to the laboratory test catalog for established sex-specific reference intervals. Current interpretive data was last revised on 2023. MCV 90.6 81.3 - 96.4 fL [facility] MCH 28.8 27.1 - 33.3 pg [facility] MCHC 31.8(L) 32.3 - 35.7 g/dL [facility] RDW CV 13.2 11.1 - 14.9 % [facility] RDW SD 43.9 35.7 - 48.1 fL [facility] NRBC abs 0.00 0.00 - 0.01 K/cumm [facility] Blood 04/11/2023 12:5 2 PM PRESTIDIGITATOR 04/11/2023 12:53 PM PRESTIDIGITATOR Abbi Ventura MD LAB BLOOD ORDERABLES Final Resul t Performing Organization Address [facility] de Phone Number [facility] [place] [address] * CEA (04/11/2023 12:52 PM PRESTIDIGITATOR) CEA 1.4 <=5.0 ng/mL [facility] Comment: Interpretive Data: Reference Range: Non-Smokers: 0.0 ? 5.0 ng/mL Smokers: 0.0 ? 6.5 ng/mL The Bo CEA assay procedure was used. Results from different manufacturers or methods may not be comparable. Serial testing should be performed using the same method. Current interpretive data was last revised 2021. Blood 04/11/2023 12:5 2 PM PRESTIDIGITATOR 04/11/2023 2:35 PM PRESTIDIGITATOR Abbi Ventura MD LAB BLOOD ORDERABLES Final Resul t Performing Organization Address [facility] de Phone Number [facility] Department [place] [address] * MRI Brain W WO Contrast (01/30/2023 [...] 04/11/2023 documented in this encounter Care Teams Marine Insulator Relationship Specialty Start Date End Date Dat Benito DO [address] [place] [address] PCP - General Internal Medicine 09/28/21 Aft, Kianna Machado MD PhD [address] [place] [address] Surgeon Surgical Oncology 11/22/17 Santiago Gilbert MD [address] [place] [address] Fertilizing Machine Operator Gastroenterology 11/22/17 Abbi Ventura MD [address] [place] [address] Medical Oncologist/Livestock Feeder Medical Oncology 12/03/18 Montse Thompson MD [address] [place] [address] Consulting Physician Gynecologic Oncology 12/03/18 Lela Hardy MD PhD [address] [facility] [address] [place] [address] Radiation Oncologist Radiation Oncology 12/23/18 Trena Obando MD [address] [place] [address] Consulting Physician Neurology 09/18/21 documented as of this encounter
--- OUTSIDE RECORDS SUMMARY | 2024-04-24 14:45 | XMS_ITS | Encounter Summary ---
Author Organization [facility] Address [address] [place] [address] Phone Care Team Providers Care Oracle Manager Name Role Phone Aft, Kianna Machado MD PhD Unavailable [phone] Santiago Gilbert MD Unavailable [phone] Abbi Ventura MD Unavailable Montse Thompson MD Unavailable [phone] Lela Hardy MD PhD Unavailable [phone] Trena Obando MD Unavailable [phone] Dat Benito DO Primary Care Provider [phone] Reason for Visit * Consultation (Routine) - Authorized Specialty Diagnoses / Procedures Referred By Contronny t Referred To Contact Oncology Diagnoses Malignant neoplasm of upper-inner quadrant of left breast in female, estrogen receptor negative (HCC) Abbi Ventura MD [address] [place] [address] Phone: tel: fax: Abbi Ventura MD [address] [place] [address] Phone: tel: fax: Referral ID Status Reason Start Date Expiration Date Visits Requested Visits Authorized [id number] Authorized Specialty Services Required 3 05/03/2024 99 99 Encounter Details Date Type Department Care Team (Late st Contact Info) Description 04/11/2023 12:45 PM LIFE INSURANCE SALES AGENT Office Visit [facility] Oncology [address] [place] [address] Abbi Ventura MD [address] [facility] [address] [place] [address] Malignant neoplasm of upper-inner quadrant of left [...] Legal Sex Female 1:06 AM LIFE INSURANCE SALES AGENT Gender Identity Not on file Sexual Orientation Not on file documented as of this encounter Last Filed Vital Signs Vital Sign Reading Time Taken Comments Blood Pressure 130/75 04/11/2023 12:58 PM LIFE INSURANCE SALES AGENT Pulse 79 04/11/2023 12:58 PM LIFE INSURANCE SALES AGENT Temperature 36.4 ??C (97.5 ??F) 04/11/2023 1 2:58 PM LIFE INSURANCE SALES AGENT Respiratory Rate 16 04/11/2023 12:5 8 PM LIFE INSURANCE SALES AGENT Oxygen Saturation 96% 04/11/2023 12: 58 PM LIFE INSURANCE SALES AGENT Inhaled Oxygen Concentration - - Weight 102.7 kg (226 lb 6.4 oz) 023 12:58 PM LIFE INSURANCE SALES AGENT Height - - Body Mass Index 34.19 [...] positive and VUS in BRIP1 and NBN. Gigalo risk showed no mutation in MLH 1 or PMS2 suggesting that the patient does not have Grullon syndrome. 4. Allergic reaction to oxaliplatin during cycle 6 of FOLFOX 5. DYPD genotype normal. 6. DVT/PE diagnosed 05/28/18 7. Stage I Right breast invasive ductal carcinoma - ER negative [place] negative Her 2 negative diagnosed 03/2022 TREATMENT [...] 04/13/22 showed invasive ductal carcinoma. ER negative [place] negative Her 2 negative Bilateral mastectomy 05/22/22 [...] Recent labs, radiology and pathology reviewed in [facility] ASSESSMENT: Stage I [id number] right breast cancer -ER negative [place] negative Her 2 negative- Mammaprint could not be done due to insufficient tumor. 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 Gilbert, her local arc welding machine operator, colonoscopy completed 04/09/2022 and repeat in 3 [...] the interim with questions. Jenny Quigley MSN CHAIN PULLER RPG DEVELOPER-C Division of Medical Oncology [facility] INSURANCE SALES AGENT documented in this encounter Plan of Treatment Not on file documented as of this encounter Results * CA 125 (07/04/2023 10:10 AM LIFE INSURANCE SALES AGENT) Pathologist [facility] CA 125 ag 7.0 0.0 - 38.1 units/mL [facility] Comment: Interpretive Data The Bo CA 125 assay procedure was used. Results from different manufacturers or methods may not be comparable. Serial testing should be performed using the same method. Blood 07/04/2023 10:1 0 AM LIFE INSURANCE SALES AGENT 07/04/2023 12:29 PM LIFE INSURANCE SALES AGENT us Abbi Ventura MD LAB BLOOD ORDERABLES Final Resul t [facility] [place] [address] * (ABNORMAL) Comprehensive metabolic panel (07/04/2023 10:10 AM LIFE INSURANCE SALES AGENT) Pathologist [facility] Sodium 137 135 - 145 mmol/L [facility] Comment:Testing performed by : [facility], [address] [place] [address] Potassium, pl 4.3 3.3 - 4.9 mmol/L [facility] Chloride 106 97 - 110 mmol/L [facility] CO2 25 22 - 32 mmol/L [facility] Anion gap 6 2 - 15 mmol/L [facility] BUN 27(H) 6 - 25 mg/dL [facility] Creatinine 1.51(H) 0.60 - 1.10 mg/dL [facility] Glucose 160 70 - 199 mg/dL [facility] Comment: Interpretive Data Fasting glucose >/= 126 [...] 2022. Calcium 9.0 8.5 - 10.3 mg/dL [facility] Bilirubin, total 0.3 0.1 - 1.2 mg/dL [facility] Protein, pl 7.2 6.5 - 8.5 g/dL [facility] Albumin 4.1 3.5 - 5.0 g/dL [facility] Alk phos 98 40 - 130 Units/L [facility] ALT 8 7 - 45 Units/L [facility] AST 17 10 - 45 Units/L [facility] Blood 07/04/2023 10:1 0 AM LIFE INSURANCE SALES AGENT 07/04/2023 10:16 AM LIFE INSURANCE SALES AGENT us Abbi Ventura MD LAB BLOOD ORDERABLES Final Resul t [facility] Department of Laboratories [place], [place] [id number] * (ABNORMAL) CBC with auto differential (07/04/2023 10:10 AM LIFE INSURANCE SALES AGENT) [facility] WBC 7.7 3.8 - 9.9 K/cumm [facility] Comment:Testing performed by : [facility], [address] [place] [address] Hgb 11.7(L) 11.9 - 15.5 g/dL [facility] Comment:Testing performed by : [facility], [address] [place] [address] Hct 36.4 35.6 - 45.5 % [facility] Comment:Testing performed by : [facility], [address] [place] [address] Plt 171 150 - 400 K/cumm [facility] Comment:Testing performed by : [facility], [address] [place] [address] MPV 9.1 9.1 - 12.3 fL [facility] RBC 4.02 3.90 - 5.20 M/cumm [facility] MCV 90.5 81.3 - 96.4 fL [facility] MCH 29.1 27.1 - 33.3 pg [facility] MCHC 32.1(L) 32.3 - 35.7 g/dL [facility] RDW CV 13.4 11.1 - 14.9 % [facility] RDW SD 44.4 35.7 - 48.1 fL [facility] NRBC abs 0.00 0.00 - 0.01 K/cumm [facility] Blood 07/04/2023 10:1 0 AM LIFE INSURANCE SALES AGENT 07/04/2023 10:16 AM LIFE INSURANCE SALES AGENT Abbi Ventura MD LAB BLOOD ORDERABLES Final Resul t [facility] [place] [address] * CEA (07/04/2023 10:10 AM LIFE INSURANCE SALES AGENT) CEA 1.5 <=5.0 ng/mL [facility] Comment: Interpretive Data: Reference Range: Non-Smokers: 0.0 ? 5.0 ng/mL Smokers: 0.0 ? 6.5 ng/mL The Bo CEA assay procedure was used. Results from different manufacturers or methods may not be comparable. Serial testing should be performed using the same method. Current interpretive data was last revised 2021. Blood 07/04/2023 10:1 0 AM LIFE INSURANCE SALES AGENT 07/04/2023 12:29 PM LIFE INSURANCE SALES AGENT us Abbi Ventura MD LAB BLOOD ORDERABLES Final Resul t [facility] [place] [address] documented in this encounter Visit Diagnoses Diagnosis [...] 07/04/2023 documented in this encounter Care Teams Oracle Manager Relationship Specialty Start Date End Date Dat Benito DO [address] [place] [address] PCP - General Internal Medicine 09/28/21 Aft, Kianna Machado MD PhD [address] [place] [address] Surgeon Surgical Oncology 11/22/17 Santiago Gilbert MD [address] [place] [address] Volunteer Specialist Gastroenterology 11/22/17 Abbi Ventura MD [address] [place] [address] Medical Oncologist/Foil Operator Medical Oncology 12/03/18 Montse Thompson MD [address] [place], [place] [id number] Consulting Physician Gynecologic Oncology 12/03/18 Lela Hardy MD PhD [address] [facility] [address] [place] [address] Radiation Oncologist Radiation Oncology 12/23/18 Trena Obando MD [address] [place] [address] Consulting Physician Neurology 09/18/21 documented as of this encounter
--- OUTSIDE RECORDS SUMMARY | 2024-04-24 14:45 | XMS_ITS | Encounter Summary ---
Author Organization [facility] Healthcare Address [address] [place] [address] Care Team Providers Care City Magistrate Name Role Phone Aft, Kianna Machado MD PhD Unavailable [phone] Santiago Gilbert MD Unavailable [phone] Abbi Ventura MD Unavailable Montse Thompson MD Unavailable [phone] Lela Hardy MD PhD Unavailable [phone] Trena Obando MD Unavailable [phone] Dat Benito DO Primary Care Provider [phone] Reason for Referral * Diagnostic Imaging (Routine) - Closed Specialty Diagnoses / Procedures Referred By Contronny t Referred To Contact Radiology Diagnoses Malignant neoplasm of upper-inner quadrant of left breast in female, estrogen receptor negative (HCC) Procedures IR Inject Abscess Catheter Shannon Hassan MD [address] [place] [address] Phone: tel: fax: [address] [phone] Referral ID Status Reason Start Date Expiration Date Visits Re quested Visits Authorized [id number] Closed 07/17/2023 08/15/2024 1 1 * Diagnostic Imaging (Routine) - Closed Specialty Diagnoses / Procedures Referred By Contac t Referred To Contact Radiology Diagnoses Malignant neoplasm of upper-inner quadrant of left breast in female, estrogen receptor negative (HCC) Procedures IR Fluid Drain Soft Tissue Kianna Bunch MD PhD [address] [place] [address] Phone: tel: fax: [address] [phone] Referral ID Status Reason Start Date Expiration Date Visits Re quested Visits Authorized [id number] Closed 07/15/2023 08/13/2024 1 1 Reason for Visit * Diagnostic Imaging (Routine) - Closed Specialty Diagnoses / Procedures Referred By Vijaya t Referred To Contact Radiology Diagnoses Malignant neoplasm of upper-inner quadrant of left breast in female, estrogen receptor negative (HCC) Procedures IR Fluid Drain Soft Tissue Kianna Bunch MD PhD [address] [place] [address] Phone: tel: fax: [address] [phone] Referral ID Status Reason Start Date Expiration Date Visits Re quested Visits Authorized [id number] Closed 07/15/2023 08/13/2024 1 1 Encounter Details Date Type Department Care Team (Latest Contact Info) Description 07/17/2023 12:40 PM CDT - 07/17/2023 11:59 PM CDT Hospital Encounter [facility] [address] [place] [address] Kianna Bunch MD PhD [address] [place] [address] Malignant neoplasm of upper-inner quadrant of left [...] on file 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 To contact an Interventional Radiologist at [facility] call [phone] Saturday through Saturday from 7:30am-4:30pm. At all other times call [phone] and ask that the Interventional Radiologist be paged. To contact an Interventional Radiologist at [facility] call [phone] Saturday through Saturday from 7:30am-3:30pm. To contact an Interventional Radiologist RN at [facility] call [phone] Saturday through Saturday from 7:00 am-5:00 pm. To schedule an appointment with Interventional Radiology at [facility] call [phone] Saturday through Saturday from 7:30 am-4:00 pm. [...] at Please come to: [] 3rd Floor [facility] [] 4th floor [facility] [] [facility] [] [facility] Please call [phone] if you need to schedule a follow [...] Brief Post Procedure Note Attending: Dr. Goldman Import/Export Agent: Dr. Hassan Sedation/Anesthesia: Min Sedation Pre-Op/Pre-Procedure Diagnosis: [...] Breast Needle Localization partial mastectomy (L), Biopsy [place] Lymph Node With Lymphoscintigraphy (L), Insertion Port [...] flush 0.5-20 mL, 0.5-20 mL, intra-catheter, Q8H [facility], Shannon Hassan MD sodium chloride 0.9% [...] questions arise, please contact us by calling [phone]. Electronically signed by: Ronny Xavier PA-C Narrative 07/30/2023 11:59 AM CDT EXAMINATION: ??DRAINAGE CATHETER EVALUATION AND EXCHANGE HISTORY: ??67-year-old woman with history of breast cancer and colon adenocarcinoma, status post bilateral mastectomy with increasing fluid collection in the left chest wall. IR placed a 12 Italian cope loop catheter on 07/17/2023. Patient reports approximately 1 ounce of thin clear yellow fluid daily output. PROVIDER PRESENCE: ??Ronny Xavier PA-C was present from the beginning to the end of the procedure. SEDATION: ??The patient did not require conscious sedation for the procedure. TECHNIQUE: ??Prior to beginning the procedure, Britton Protocol was used to confirm the patient's identity and planned procedure. Fluoroscopy time has been recorded in the electronic medical record. Maximum sterile barriers including cap, mask, hand hygiene, sterile gloves, sterile gown, large sterile drape and 2% chlorhexidine for cutaneous antisepsis were used. After obtaining a television operator image, the catheter was injected with dilute contrast and multiple diagnostic fluoroscopic spot images were obtained. The skin overlying the collection was sterilely prepped, draped and infiltrated with 1% buffered lidocaine. The catheter was then exchanged over a Bentson guidewire for a new 10 Italian Haque-Ryder catheter. ??Limited contrast injection confirmed appropriate [...] left chest wall. IR placed a 12 Italian cope loop catheter on 07/17/2023. Patient reports approximately 1 ounce of thin clear yellow fluid daily output. PROVIDER PRESENCE: Ronny Xavier PA-C was present from the beginning to the end of the procedure. SEDATION: The patient did not require conscious sedation for the procedure. TECHNIQUE: Prior to beginning the procedure, Britton Protocol was used to confirm the patient's identity and planned procedure. Fluoroscopy time has been recorded in the electronic medical record. Maximum sterile barriers including cap, mask, hand hygiene, sterile gloves, sterile gown, large sterile drape and 2% chlorhexidine for cutaneous antisepsis were used. After obtaining a television operator image, the catheter was injected with dilute contrast and multiple diagnostic fluoroscopic spot images were obtained. The skin overlying the collection was sterilely prepped, draped and infiltrated with 1% buffered lidocaine. The catheter was then exchanged over a Indexson guidewire for a new 10 Italian Haque-Ryder catheter. Limited contrast injection confirmed appropriate [...] questions arise, please contact us by calling [phone]. Electronically signed by: Ronny Xavier PA-C us [...] was obtained. ??Prior to beginning the procedure, Britton Protocol was used to confirm the patient's [...] dilating the tract to ??10 Fr. ??A 12-Italian Cook catheter was then advanced over the [...] was obtained. Prior to beginning the procedure, Britton Protocol was used to confirm the patient's [...] dilating the tract to 10 Fr. A 12-Italian Cook catheter was then advanced over the [...] check and possible sclerosis. Dictated by: Shannon Hsasan MD The radiology attending physician has personally [...] 07/17/2023 documented in this encounter Care Teams City Magistrate Relationship Specialty Start Date End Date Dat Benito DO [address] [place] [address] PCP - General Internal Medicine 09/28/21 Aft, Kianna Machado MD PhD [address] [place] [address] Surgeon Surgical Oncology 11/22/17 Santiago Gilbert MD [address] [place] [address] Audiology Director Gastroenterology 11/22/17 Abbi Ventura MD [address] [place] [address] [address] [place] [address] Medical Oncologist/Acid Condenser Medical Oncology 12/03/18 Montse Thompson MD [address] [place] [address] [address] [place] [address] Consulting Physician Gynecologic Oncology 12/03/18 Lela Hardy MD PhD [address] [place] [address] [address] [place] [address] Radiation Oncologist Radiation Oncology 12/23/18 Trena Obando MD [address] [place] [address] Consulting Physician Neurology 09/18/21 documented as of this encounter
--- OUTSIDE RECORDS SUMMARY | 2024-04-24 14:45 | XMS_ITS | Encounter Summary ---
Author Organization [facility] Healthcare Address [address] [place] [address] Care Team Providers Care Set Up Mechanic Coating Machines Name Role Phone Aft, Kianna Machado MD PhD Unavailable Santiago Gilbert MD Unavailable [phone] Abbi Ventura MD Unavailable Montse Thompson MD Unavailable [phone] Lela Hardy MD PhD Unavailable [phone] Trena Obando MD Unavailable [phone] Dat Benito DO Primary Care Provider [phone] Encounter Details Date Type Department Care Team (Late st Contact Info) Description 01/24/2023 1:15 PM CDT Lab [address] [address] Malignant neoplasm of upper-inner quadrant [...] on file 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 73 m2 [facility] Comment: Interpretive Data Reference Interval Normal ?>/= [...] LAB BLOOD ORDERABLES Final Resul t [facility] Department [place] [address] * (ABNORMAL) Differential, auto (01/24/2023 1:08 PM CDT) Neutrophil abs 7.2(H) 1.7 - 6.5 K/cumm [facility] Comment:Testing performed by : [facility], [address] [place] [address] Imm gran abs 0.0 0.0 - 0.1 K/cumm [facility] Lymphocyte abs 1.6 0.8 - 3.3 K/cumm [facility] Monocyte abs 0.5 0.2 - 0.8 K/cumm [facility] Eosinophil abs 0.4 0.0 - 0.5 K/cumm [facility] Basophil abs 0.1 0.0 - 0.1 K/cumm [facility] Neutrophil pct 74.1 % [facility] Comment: Interpretive Data Percent cell count reference ranges are not reported, since discordance with absolute values may lead to misinterpretation of CBC data. Current Interpretive Data was last revised on 2017. Imm gran pct 0.2 % [facility] Comment: Interpretive Data Percent cell count reference ranges are not reported, since discordance with absolute values may lead to misinterpretation of CBC data. Current Interpretive Data was last revised on 2017. Lymphocyte pct 15.9 % [facility] Comment: Interpretive Data Percent cell count reference ranges are not reported, since discordance with absolute values may lead to misinterpretation of CBC data. Current Interpretive Data was last revised on 2017. Monocyte pct 5.4 % [facility] Comment: Interpretive Data Percent cell count reference ranges are not reported, since discordance with absolute values may lead to misinterpretation of CBC data. Current Interpretive Data was last revised on 2017. Eosinophil pct 3.7 % [facility] Comment: Interpretive Data Percent cell count reference ranges are not reported, since discordance with absolute values may lead to misinterpretation of CBC data. Current Interpretive Data was last revised on 2017. Basophil pct 0.7 % [facility] Comment: Interpretive Data Percent cell count reference ranges are not reported, since discordance with absolute values may lead to misinterpretation of CBC data. Current Interpretive Data was last revised on 2017. Blood 01/24/2023 1:08 PM CDT 01/24/2023 1:09 PM CDT us Abbi Ventura MD LAB BLOOD ORDERABLES Final Resul t [facility] Department [place] [address] * CEA (01/24/2023 1:08 PM CDT) CEA 1.5 <=5.0 ng/mL [facility] Comment: Interpretive Data: Reference Range: Non-Smokers: 0.0 [...] LAB BLOOD ORDERABLES Final Resul t [facility] Department [place] [address] * (ABNORMAL) Comprehensive metabolic panel (01/24/2023 1:08 PM CDT) Sodium 140 135 - 145 mmol/L [facility] Comment:Testing performed by : [facility], [address] [place] [address] Potassium, pl 4.4 3.3 - 4.9 mmol/L [facility] Chloride 107 97 - 110 mmol/L [facility] CO2 25 22 - 32 mmol/L [facility] Anion gap 8 2 - 15 mmol/L [facility] BUN 17 6 - 25 mg/dL [facility] Creatinine 1.46(H) 0.60 - 1.10 mg/dL [facility] Glucose 138 70 - 199 mg/dL [facility] Comment: Interpretive Data Fasting glucose >/= [...] Calcium 9.2 8.5 - 10.3 mg/dL [facility] Bilirubin, total 0.5 0.1 - 1.2 mg/dL [facility] Protein, pl 7.3 6.5 - 8.5 g/dL [facility] Albumin 4.3 3.5 - 5.0 g/dL [facility] Alk phos 97 40 - 130 Units/L [facility] ALT 10 7 - 45 Units/L [facility] AST 17 10 - 45 Units/L [facility] Blood 01/24/2023 1:08 PM CDT 01/24/2023 1:09 PM CDT Abbi Ventura MD LAB BLOOD ORDERABLES Final Resul t [facility] One [facility] [place] [address] * (ABNORMAL) CBC with auto differential (01/24/2023 1:08 PM CDT) WBC 9.7 3.8 - 9.9 K/cumm [facility] Comment:Testing performed by : [address] [address] Hgb 11.6(L) 11.9 - 15.5 g/dL [facility] Comment:Testing performed by : [address] [address] Hct 36.1 35.6 - 45.5 % [facility] Comment:Testing performed by : [address] [address] Plt 189 150 - 400 K/cumm [facility] Comment:Testing performed by : [address] [address] MPV 9.7 9.1 - 12.3 fL [facility] RBC 4.03 3.90 - 5.20 M/cumm [facility] MCV 89.6 81.3 - 96.4 fL [facility] MCH 28.8 27.1 - 33.3 pg [facility] MCHC 32.1(L) 32.3 - 35.7 g/dL [facility] RDW CV 13.5 11.1 - 14.9 % [facility] RDW SD 44.5 35.7 - 48.1 fL [facility] NRBC abs 0.00 0.00 - 0.01 K/cumm [facility] Blood 01/24/2023 1:08 PM CDT 01/24/2023 1:09 PM CDT Abbi Ventura MD LAB BLOOD ORDERABLES Final Resul t [facility] Department [place] [address] documented in this encounter Visit Diagnoses Diagnosis Malignant neoplasm of upper-inner quadrant of left breast in female, estrogen receptor negative (HCC) documented in this encounter Care Teams Set Up Mechanic Coating Machines Relationship Specialty Start Date End Date Dat Benito DO [address] [place] [address] PCP - General Internal Medicine 09/28/21 Aft, Kianna Machado MD PhD [address] [place] [address] Surgeon Surgical Oncology 11/22/17 Santiago Gilbert MD [address] [place] [address] Weapons And Tactics Instructor Gastroenterology 11/22/17 Abbi Ventura MD [address] [place] [address] [address] [place] [address] Medical Oncologist/Supervisor Home Restoration Service Medical Oncology 12/03/18 Montse Thompson MD [address] [place] [address] [address] [place] [address] Consulting Physician Gynecologic Oncology 12/03/18 eLla Hardy MD PhD [address] [place] [address] [address] [place], [place] [id number] Radiation Oncologist Radiation Oncology 12/23/18 Trena Obando MD [address] [place] [address] Consulting Physician Neurology 09/18/21 documented as of this encounter
--- OUTSIDE RECORDS SUMMARY | 2024-04-24 14:46 | XMS_ITS | Encounter Summary ---
Author Organization [facility] Address [address] [place] [address] Phone Care Team Providers Care Claims Assistant Name Role Phone Aft, Kianna Machado MD PhD Unavailable [phone] Santiago Gilbert MD Unavailable [phone] Abbi Ventura MD Unavailable Montse Thompson MD Unavailable [phone] Lela Hardy MD PhD Unavailable Trena Obando MD Unavailable [phone] Dat Benito DO Primary Care Provider [phone] Encounter Details Date Type Department Care Team (Late st Contact Info) Description 06/29/[address] [id number] Uriel Corral Social History Tobacco Use Types [...] on file Legal Sex Female 1:06 AM TYPIST Gender Identity Not on file Sexual Orientation Not on file documented as of this encounter Miscellaneous Notes * Telephone Encounter - Uriel Corral - 06/29/2022 10:28 AM CST ----- Message from Uriel Corral sent at 06/13/2022 1:28 PM TYPIST ----- Patient needs Mammoprint done on tumor [...] RN called Gian Hernandez with [facility] at [phone]. They are still waiting on the specimen. He plans to call path lab to see where the specimen is at. If they are able to accession specimen today, we may have results as early as Saturday07/03/22. TheraA. Ellis RN ST ST documented in this encounter Plan of Treatment Not on file documented as of this encounter Visit Diagnoses Not on filedocumented in this encounter Care Teams Claims Assistant Relationship Specialty Start Date End Date Dat Benito DO [address] [place], [place] [address] PCP - General Internal Medicine 09/28/21 Aft, Kianna Machado MD PhD [address] [place] [address] Surgeon Surgical Oncology 11/22/17 Santiago Gilbert MD [address] [place] [address] Business Practices Officer Gastroenterology 11/22/17 Abbi Ventura MD [address] [facility] [address] [place] [address] Medical Oncologist/Pci Security Consultant Medical Oncology 12/03/18 Montse Thompson MD [address] [facility] [address] [place] [address] Consulting Physician Gynecologic Oncology 12/03/18 Lela Hardy MD PhD [address] [place] [address] [address] [place] [address] Radiation Oncologist Radiation Oncology 12/23/18 Trena Obando MD [address] [place], [place] [address] Consulting Physician Neurology 09/18/21 documented as of this encounter
--- OUTSIDE RECORDS SUMMARY | 2024-04-24 14:46 | XMS_ITS | Encounter Summary ---
Author Organization [facility] Address [address] [place] [address] Phone Care Team Providers Care Optometrist Name Role Phone Aft, Kianna Machado MD PhD Unavailable [phone] Santiago Gilbert MD Unavailable [phone] Abbi Ventura MD Unavailable Montse Thompson MD Unavailable [phone] Lela Hardy MD PhD Unavailable [phone] Trena Obando MD Unavailable [phone] Dat Benito DO Primary Care Provider [phone] Encounter Details Date Type Department Care Team (Late st Contact Info) Description 09/04/2022 Telephone [facility] Oncology [address] [place] [phone] Rosa Alcantar, Rashad Social History Tobacco Use [...] on file Legal Sex Female 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 Gender Identity Not on file Sexual Orientation [...] on filedocumented in this encounter Care Teams Optometrist Relationship Specialty Start Date End Date Dat Benito DO [address] [place] [address] PCP - General Internal Medicine 09/28/21 Aft, Kianna Machado MD PhD [address] [place] [address] Surgeon Surgical Oncology 11/22/17 Santiago Gilbert MD [address] [place] [address] Parts Salvager Gastroenterology 11/22/17 Abbi Ventura MD [address] [place] [address] [address] [place] [address] Medical Oncologist/Forest Fire Lookout Medical Oncology 12/03/18 Montse Thompson MD [address] [facility] [address] [place] [address] Consulting Physician Gynecologic Oncology 12/03/18 Lela Hardy MD PhD [address] [facility] [address] [place] [address] Radiation Oncologist Radiation Oncology 12/23/18 Trena Obando MD [facility] [address] [place] [address] Consulting Physician Neurology 09/18/21 documented as of this encounter
--- OUTSIDE RECORDS SUMMARY | 2024-04-24 14:46 | XMS_ITS | Encounter Summary ---
Author Organization [facility] Healthcare Address [address] [place] [address] Care Team Providers Care Practice Clinician Name Role Phone Aft, Kianna Machdao MD PhD Unavailable [phone] Santiago Gilbert MD Unavailable [phone] Abbi Ventura MD Unavailable Montse Thompson MD Unavailable Lela Hardy MD PhD Unavailable [phone] Trena Obando MD Unavailable [phone] Dat Benito DO Primary Care Provider [phone] Reason for Visit * Reason Comments Psychotherapy Encounter Details Date Type Department Care Team (Late st Contact Info) Description 07/09/2022 1:00 PM MASON LINER Clinical Support [address] Advanced Medicine 1st [place] [id number] Cynthia Boyer, PhD [address] [place] [address] Malignant neoplasm of upper-inner quadrant of left [...] on file Legal Sex Female 1:06 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 Provider was located in the [facility] for the duration of this appointment. Patient confirmed current location is: [address] [place] [phone] Primary (home) REASON FOR VISIT: Reason for [...] 07/09 documented in this encounter Care Teams Practice Clinician Relationship Specialty Start Date End Date Dat Benito DO [address] [place] [address] PCP - General Internal Medicine 09/28/21 Aft, Kianna Machado MD PhD [address] [place] [address] Surgeon Surgical Oncology 11/22/17 Santiago Gilbert MD [address] [place] [address] Industrial Maintenance Tech Gastroenterology 11/22/17 Abbi Ventura MD [address] [place] [address] [address] [place] [address] Medical Oncologist/Cloth Opener Hand Medical Oncology 12/03/18 Montse Thompson MD [address] [place] [address] [address] [place] [address] Consulting Physician Gynecologic Oncology 12/03/18 Lela Hardy MD PhD [address] [place] [address] [address] [place] [address] Radiation Oncologist Radiation Oncology 12/23/18 Trena Obando MD [address] [place] [address] Consulting Physician Neurology 09/18/21 documented as of this encounter
--- OUTSIDE RECORDS SUMMARY | 2024-04-24 14:46 | XMS_ITS | Encounter Summary ---
Author Organization [facility] Address [address] [place] [address] Phone Care Team Providers Care Cement [employer] Concrete Plant Worker Name Role Phone Aft, Kianna Machado MD PhD Unavailable [phone] Santiago Gilbert MD Unavailable [phone] Abbi Ventura MD Unavailable Montse Thompson MD Unavailable [phone] Lela Hardy MD PhD Unavailable [phone] Trena Obando MD Unavailable [phone] Dat Benito DO Primary Care Provider [phone] Encounter Details Date Type Department Care Team (Late st Contact Info) Description 06/25/[address] [id number] Uriel Corral Social History Tobacco Use Types [...] file Legal 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 Uriel Corral RN NSING SERVICES CLERK NSING SERVICES CLERK documented in this encounter Plan of Treatment Not on file documented as of this encounter Visit Diagnoses Not on filedocumented in this encounter Care Teams Cement And Concrete Plant Worker Relationship Specialty Start Date End Date Dat Benito DO [address] [place] [address] PCP - General Internal Medicine 09/28/21 Aft, Kianna Machado MD PhD [address] [place] [address] Surgeon Surgical Oncology 11/22/17 Santiago Gilbert MD [address] [place] [address] Federal Agent Gastroenterology 11/22/17 Abbi Ventura MD [address] [facility] [address] [address] [place] [address] Medical Oncologist/Senior Hr Business Partner Medical Oncology 12/03/18 Montse Thompson MD [address] [facility] [address] [place] [address] Consulting Physician Gynecologic Oncology 12/03/18 Lela Hardy MD PhD [address] [facility] [address] [place] [address] Radiation Oncologist Radiation Oncology 12/23/18 Trena Obando MD [address] [place], [place] [id number] Consulting Physician Neurology 09/18/21 documented as of this encounter
--- OUTSIDE RECORDS SUMMARY | 2024-04-24 14:46 | XMS_ITS | Encounter Summary ---
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 Female 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 Gender Identity Not on file Sexual [...] on filedocumented in this encounter Care Teams Hat Copyist Relationship Specialty Start Date End Date Dat Benito DO [address] [place] [address] PCP - General Internal Medicine 09/28/21 Kianna Bunch MD PhD [address] [place] [address] Surgeon Surgical Oncology 11/22/17 Santiago Gilbert MD [address] [place] [address] Critical Care Rn Gastroenterology 11/22/17 Abbi Ventura MD [address] [place] [address] [address] [place] [address] Medical Oncologist/Traffic Analyst Medical Oncology 12/03/18 Montse Thompson MD [address] [place] [address] Consulting Physician Gynecologic Oncology 12/03/18 Lela Hardy MD PhD [facility] [address] [place] [address] Radiation Oncologist Radiation Oncology 12/23/18 Trena Obando MD [address] [place] [address] Consulting Physician Neurology 09/18/21 documented as of this encounter
--- OUTSIDE RECORDS SUMMARY | 2024-04-24 14:46 | XMS_ITS | Encounter Summary ---
Author Organization [facility] Address [address] [place] [address] Phone Care Team Providers Care Senior Editor Name Role Phone Aft, Kianna Machado MD PhD Unavailable [phone] Santiago Gilbert MD Unavailable [phone] Abbi Ventura MD Unavailable Montse Thompson MD Unavailable [phone] Lela Hardy MD PhD Unavailable [phone] Trena Obando MD Unavailable [phone] Dat Benito DO Primary Care Provider [phone] Encounter Details Date Type Department Care Team (Late st Contact Info) Description 09/21/2022 Telephone [facility] Obstetrics and Gynecology [address] [facility] [address] [place] [address] [place] [address] Rosanna Callejas BS Social History [...] file Legal 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 documented in this encounter Plan of Treatment Not on file documented as of this encounter Visit Diagnoses Not on filedocumented in this encounter Care Teams Senior Editor Relationship Specialty Start Date End Date Dat Benito DO [address] [place] [address] PCP - General Internal Medicine 09/28/21 Aft, Kianna Machado MD PhD [address] [place] [address] Surgeon Surgical Oncology 11/22/17 Santiago Gilbert MD [address] [place] [address] Front Office Administrator Gastroenterology 11/22/17 Abbi Ventura MD [address] [place] [address] [address] [place] [address] Medical Oncologist/Supply Coordinator Medical Oncology 12/03/18 Montse Thompson MD [facility] [address] [place] [address] Consulting Physician Gynecologic Oncology 12/03/18 Lela Hardy MD PhD [address] [facility] [address] [place] [address] Radiation Oncologist Radiation Oncology 12/23/18 Trena Obando MD [address] [place] [address] Consulting Physician Neurology 09/18/21 documented as of this encounter
--- OUTSIDE RECORDS SUMMARY | 2024-04-24 14:46 | XMS_ITS | Encounter Summary ---
Author Organization [facility] Healthcare Address [address] [place] [address] Care Team Providers Care Faculty Research Assistant Name Role Phone Aft, Kianna Machado MD PhD Unavailable [phone] Santiago Gilbert MD Unavailable [phone] Abbi Ventura MD Unavailable Montse Thompson MD Unavailable [phone] Lela Hardy MD PhD Unavailable [phone] Trena Obando MD Unavailable [phone] Dat Benito DO Primary Care Provider [phone] Reason for Visit * Auth/Cert Specialty Diagnoses / Procedures Referred By Contac t Referred To Contact Diagnoses Malignant neoplasm of upper-inner quadrant of left breast in female, 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, 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) (HCC) [C50.212, Z17.1] Procedures OH BX/EXC LYMPH NODE OPEN SUPERFICIAL OH MASTECTOMY SIMPLE COMPLETE OH INTRAOP SENTINEL LYMPH NODE ID W/DYE INJECTION MASTECTOMY BILATERAL BIOPSY SENTINEL LYMPH NODE with magtrace Referral ID Status Reason Start Date Expiration Date Visits Re quested Visits Authorized [id number] 1 1 Encounter Details Date Type Department Care Team (Latest Contact Info) Description 05/22/2022 5:39 AM ELECTRICAL UNIT REBUILDER - 05/23/2022 12:30 PM ELECTRICAL UNIT REBUILDER Hospital Encounter [facility] [address] [place] [address] Kianna Bunch MD PhD [address] [place] [address] Malignant neoplasm of upper-inner quadrant of left [...] on file Legal Sex Female 1:06 AM ELECTRICAL UNIT REBUILDER Gender Identity Not on file Sexual Orientation Not on file documented as of this encounter Last Filed Vital Signs Vital Sign Reading Time Taken Comments Blood Pressure 112/50 05/23/2022 11:15 AM ELECTRICAL UNIT REBUILDER Pulse 88 05/23/2022 11:15 AM ELECTRICAL UNIT REBUILDER Temperature 36.8 ??C (98.2 ??F) 05/23/2022 11:[address] Respiratory Rate 14 05/23/2022 11:15 AM ELECTRICAL UNIT REBUILDER Oxygen Saturation 98% 05/23/2022 11:15 AM ELECTRICAL UNIT REBUILDER Inhaled Oxygen Concentration - - Weight 108.9 kg (240 lb) 05/22/2022 1:13 PM ELECTRICAL UNIT REBUILDER Height 175.3 cm (5' 9 ) 05/22/2022 1:13 PM ELECTRICAL UNIT REBUILDER Body Mass Index 35.44 05/22/2022 1:13 PM ELECTRICAL UNIT REBUILDER documented in this encounter Discharge Summaries * Chely Turner, CLIENT ACCOUNT ASSISTANT - 05/23/2022 10:00 AM CST Inpatient Discharge Summary BRIEF OVERVIEW Admitting Provider: Kianna Bunch MD PhD Discharge Provider: No att. providers found Primary Care Physician at Discharge: ValariejianDat hankins DO [phone] Admission Date: 05/22/2022 Discharge Date: 05/23/2022 Primary [...] 12:30 PM Abbi Ventura MD ONC [facility] Oncology 08/16/2022 11:30 AM BJ SCCT1 BJ SC CT BJHSCCAM IMG 08/16/2022 1:00 PM LAB, SC ONC ONC LAB [facility] ONC LAB 08/16/2022 1:30 PM Abbi Ventura MD ONC [facility] Oncology 09/24/2022 2:00 PM Montse Thompson MD ONC CAM 13C OB Cosigned by Julio C, Kianna Machado MD PhD at 05/24/2022 7:07 AM ELECTRICAL UNIT REBUILDER TRICAL UNIT REBUILDER TRICAL UNIT REBUILDER documented in this encounter Medications at Time [...] discharge needs arise, please contact the covering case managers. TRICAL UNIT REBUILDER * Sherry Mireles RN - 05/23/2022 10:29 [...] arranged?: No (05/23/22 1028) Health Insurance Coverage: Alianza Prescription Coverage: yes Pharmacy: [id number] [address] [facility] [id number] Primary Care Provider: Dat Benito DO Prior to Admission: Primary Caregiver: Self Support System: Children Support system contact info (name, phone, availablity): amanda Werner [phone] Home Care Services: No Durable Medical Equipment: [...] Collaboration with patient, MD, direct care nurse, Panel Fitter, and other members of the health care team to assure needed interventions completed. 2. Return patient to optimal level of self-care post discharge. 3. Auto Service Advisor will follow for Discharge Planning - interventions [...] with the aftercare plan. Sherry Mireles RN TRICAL UNIT REBUILDER * Aracelis Murdock OT - 05/23/2022 8:35 [...] baseline. 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 Will perform all ADLs with IND using AE/adaptive device PRN. For questions, please review the treatment team and contact the occupational therapist currently assigned to this patient. If an occupational therapist is not assigned to this patient, please call [phone]. TRICAL UNIT REBUILDER * Cem Rae MD - 05/23/2022 6:38 [...] mg, intramuscular, Q30 Min PRN, Chely Turner, CLIENT ACCOUNT ASSISTANT insulin lispro (HumaLOG, ADMELOG) 100 unit/mL injection [...] Machado MD PhD at 05/23/2022 1:35 PM ELECTRICAL UNIT REBUILDER TRICAL UNIT REBUILDER TRICAL UNIT REBUILDER * Chely Turner NP - 05/22/2022 2:23 [...] Bunch MD PhD at 05/22/2022 4:23 PM ELECTRICAL UNIT REBUILDER TRICAL UNIT REBUILDER TRICAL UNIT REBUILDER documented in this encounter H&P Notes * Kianna Bunch MD PhD - 05/22/2022 6:53 AM CST I have reviewed the H&P, examined the patient, and endorse the findings as written. Plan of Care : Based on the above findings, I consider Aleah Gerber to be an acceptable risk for : Procedure(s): MASTECTOMY BILATERAL BIOPSY SENTINEL LYMPH NODE with magtrace TRICAL UNIT REBUILDER Source Note - Kianna Bunch MD PhD - 05/09/2022 3:00 PM ELECTRICAL UNIT REBUILDER PATIENT NAME: Aleah Gerber DATE OF : [...] positive and VUS in BRIP1 and NBN. [employer] risk showed no mutation in MLH 1 [...] of Acute respiratory failure requiring reintubation (CMS/HCC) ([facility]), Atypical ductal hyperplasia of breast, Awareness under anesthesia, BRCA1 negative, BRCA1 positive,BRCA2 negative, Breast cyst, Breast injury, Delayed emergence from general anesthesia, Diabetes mellitus type I (HCC), Ductal hyperplasia of breast, Endometrial cancer (CMS/HCC) ([facility]), Fibrocystic breast, Hard to intubate, Lobular carcinoma in situ of breast, Malignant hyperthermia, Motion sickness, Ovarian cancer ([facility]), Pneumothorax, PONV (postoperative nausea and vomiting), Postoperative delirium, Pseudocholinesterase deficiency, Smoking, or Thyroid cancer ([facility]) ([facility]). PAST SURGICAL HISTORY: She has a [...] plan outlined above. Kianna Bunch MD, PhD TRICAL UNIT REBUILDER documented in this encounter Miscellaneous Notes * [...] today and drains teaching Summary: in progress TRICAL UNIT REBUILDER * Plan of Care - Beck Lutz RRT - 05/23/2022 8:43 AM CST Pt received tx with no adverse reactions. Demonstrates good technique and understanding. Will transition to nurse administration per RT protocol. TRICAL UNIT REBUILDER * Plan of Care - Lorrie Davey [...] with RN supervision, monitoring I&O's and vitals. TRICAL UNIT REBUILDER * Perioperative Nursing Note - Jenifer Zazueta RN - 05/22/2022 9:23 AM ELECTRICAL UNIT REBUILDER joao Anaya took left breast fresh specimen at 0923 TRICAL UNIT REBUILDER * Perioperative Nursing Note - Jenifer Zazueta RN - 05/22/2022 9:07 AM ELECTRICAL UNIT REBUILDER joao Anaya took fresh right breast specimen at 0907 TRICAL UNIT REBUILDER * Op Note - Kianna Bunch MD [...] the entire procedure (including opening and closing). TRICAL UNIT REBUILDER * Pre-Procedure Instructions - Sofie Avendano NP - 05/11/2022 12:59 PM ELECTRICAL UNIT REBUILDER [facility] Location: [place] The night before your surgery: * Do [...] to be admitted after surgery at [facility], COVID testing may be performed on the day of surgery, even if you are up to date on your COVID-19 vaccine. * If having surgery at [facility], you may want to bring a credit card if you want to use our Mobile Pharmacy for your discharge medications. Mobile pharmacy is not available at [facility], the Orthopedic Center, or the [facility]. Outpatient Surgery: may stay 1 night * [...] with COVID-19. You test positive for COVID-19. TRICAL UNIT REBUILDER * Perioperative Nursing Note - Mirella Gentile RN - 05/11/2022 10:01 AM ELECTRICAL UNIT REBUILDER [facility]operative [facility] Planning Perioperative Nursing Note Telephone Preoperative Evaluation ([facility]) - TELEPHONE ONLY, NO PHYSICAL EXAM Date: [...] Other - see comments [employer] [id number] Powerport Clearvue Airguard 8fr 1 Lumen Lightweight Intermediate Latex Free - [id number] - Implanted (Right) Chest Wall Inventory item: [employer] Powerport Clearvue Airguard 8fr 1 Lumen Lightweight Intermediate Latex Free [id number] Model/Cat number: [id number] Automotive Mechanic: [employer] Lot number: [id number] Size: 8F Device identifier: [id number] Device identifier type: GS1 As of 01/14/2018 [...] expects to be discharged to:: Private residence (Center Maker Hand and Caregiver: Daughter) AIR POLLUTION AUDITOR NO ADDITIONAL COMMENTS/ FOLLOW UP TRICAL UNIT REBUILDER * Pre-Procedure Instructions - Mirella Gentile RN - 05/11/2022 10:00 AM ELECTRICAL UNIT REBUILDER [facility] (CPAP) [...] your insurance card, a photo ID (example: Center Maker Hand's License) and a method of payment for [...] Chart. If you are having surgery at [facility], please arrive on the day of surgery [...] Pathway to Excellent Care by the followinglink: [email or web address] How To Prepare Your Skin [...] Remove nail coverings, artificial nails and nail arabic. The Morning of Surgery: Take a shower [...] questions, please call the CPAP Staff at [phone], Saturday-Saturday 8am-4:30pm. All patients should read the below section: All visitors/patients are being asked to wear a clean face mask when entering the hospital. COVID 19 Updates & Visitor Policy: Please access [email or web address] for the most updated information. Information on [facility]: Please view [email or web address] (Patient & Visitor Information) for additional details regarding Advanced Directive forms, AWARE, directions, parking information, lodging, Internet access, dining and more. Information on [facility] or [facility] ([facility]): Please view [email or web address] (Patient and Visitor Information) for parking/directions and more. For MyChart information, to activate account or password recovery, please go to [email or web address] or call [phone] (toll-free: [phone]). Information for Suicide Prevention: National Suicide Prevention Lifeline (1-632- 325-FGVN (1350)). Surgery Times: For patients having surgery @ [facility], [facility], [facility] or [facility] ([facility]), if your surgeon's office has not notified you of your surgery time by NOON THE BUSINESS DAY BEFORE your surgery, please call [phone] and ask for your surgeon's office Dr. Bunch. TRICAL UNIT REBUILDER documented in this encounter Plan of Treatment Not on file documented as of this encounter Procedures Procedure Name Priority Date/Time Associated Diagnosis Comments POCT GLUCOSE DEVICE Routine 05/23/2022 7:28 AM ELECTRICAL UNIT REBUILDER POCT GLUCOSE DEVICE Routine 05/22/2022 8:44 PM ELECTRICAL UNIT REBUILDER POCT GLUCOSE DEVICE Routine 05/22/2022 5:36 PM ELECTRICAL UNIT REBUILDER POCT GLUCOSE DEVICE Routine 05/22/2022 11:07 AM ELECTRICAL UNIT REBUILDER SURGICAL PATHOLOGY Routine 05/22/2022 8: 52 AM ELECTRICAL UNIT REBUILDER Malignant neoplasm of upper-inner quadrant of left breast in female, 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) (HCC) BIOPSY SENTINEL LYMPH NODE 05/22/2022 7:52 AM ELECTRICAL UNIT REBUILDER Malignant neoplasm of upper-inner quadrant of left breast in female, 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) (HCC) Special Needs Senitmag needed day of surgery MASTECTOMY BILATERAL 05/22/2022 7:52 AM ELECTRICAL UNIT REBUILDER Malignant neoplasm of upper-inner quadrant of left breast in female, 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) (HCC) Special Needs Senitmag needed day of surgery POCT GLUCOSE DEVICE Routine 05/22/2022 6:40 AM ELECTRICAL UNIT REBUILDER documented in this encounter Results * POCT glucose (05/23/2022 7:28 AM ELECTRICAL UNIT REBUILDER) Glucose, POC 179 70 - 199 mg/dL [facility] Blood 05/23/2022 7:28 AM ELECTRICAL UNIT REBUILDER 05/23/2022 7:28 AM ELECTRICAL UNIT REBUILDER us Kianna Bunch MD PhD LAB POCT ORDERABLES - ROSEMARY CE Final Result [facility] [place] [address] * (ABNORMAL) POCT glucose (05/22/2022 8:44 PM ELECTRICAL UNIT REBUILDER) Glucose, POC 256(H) 70 - 199 mg/dL [facility] Blood 05/22/2022 8:44 PM ELECTRICAL UNIT REBUILDER 05/22/2022 8:44 PM ELECTRICAL UNIT REBUILDER Kianna Bunch MD PhD LAB POCT ORDERABLES - ROSEMARY CE Final Result Performing Organization Address [facility] Co de Phone Number [facility] [place] [address] * POCT glucose (05/22/2022 5:36 PM ELECTRICAL UNIT REBUILDER) Glucose, POC 196 70 - 199 mg/dL [facility] Blood 05/22/2022 5:36 PM ELECTRICAL UNIT REBUILDER 05/22/2022 5:36 PM ELECTRICAL UNIT REBUILDER Kianna Bunch MD PhD LAB POCT ORDERABLES - ROSEMARY CE Final Result Performing Organization Address [facility] de Phone Number [facility] [place] [address] * POCT glucose (05/22/2022 11:07 AM ELECTRICAL UNIT REBUILDER) Glucose, POC 199 70 - 199 mg/dL [facility] Blood 05/22/2022 11:0 7 AM ELECTRICAL UNIT REBUILDER 05/22/2022 11:07 AM ELECTRICAL UNIT REBUILDER Kianna Bunch MD PhD LAB POCT ORDERABLES - ROSEMARY CE Final Result Performing Organization Address [facility] de Phone Number [facility] [place] [address] * Surgical pathology (05/22/2022 8:52 AM ELECTRICAL UNIT REBUILDER) Tissue (Lymph node, sentinel breast) 05/22/2022 8:52 AM ELECTRICAL UNIT REBUILDER Tissue (Breast, simple mastectomy) 05/22/2022 8:57 AM ELECTRICAL UNIT REBUILDER Tissue (Breast, simple mastectomy) 05/22/2022 9:14 AM ELECTRICAL UNIT REBUILDER Narrative PATHOLOGY [facility] - 05/30/2022 9:38 AM ELECTRICAL UNIT REBUILDER EPIC results best viewed via link to PDF [facility] [place] [address] Note to Patients: This report may contain [...] Gender: ??F : ??1955 (Age: 66) Address: ??[address] [place] [address] ??[id number] Hospital #: ??[id number] Taken:05/22/2022 Received:05/22/2022 Reported: 05/30/2022 Patient Type: [facility] OP In Bed ?? Service: Oncology Location: [place] [address] Physician(s): ??Hortencia Warren M.D. David Yablonsky, DO [...] the above cited diagnosis. The prior biopsy [id number] has been reviewed. In part B, the [...] sparing (simple mastectomy) ? Lymph node sampling: ?Warwick lymph node(s) ? Specimen laterality: ?Right ? Tumor site invasive carcinoma: ?Upper inner quadrant ? 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 Tumor size: ?Greatest dimension: 5mm ? Histologic grade (Caldwell Histologic Score): ?Tubular differentiation: ??Score 3 ?Nuclear [...] involvement: ?All lymph nodes are negative ? Warwick node evaluation: ?H&E, multiple levels ? Response [...] ?? The Mammaprint test was performed by [facility], [place] [address]. The performance characteristics of some immunohistochemical stains, fluorescence in-situ hybridization tests and immunophenotyping by flow cytometry cited in this report (if any) were determined by the Surgical Pathology and Flow Cytometry Departments at [facility] as part of an ongoing personnel quality assurance auditor program and in compliance with federally [...] Surgical Pathology and Flow Cytometry Departments of [facility]. ??It has not been cleared or approved by the U. S. Food and Drug Administration. IMAGES AND SCANNED DOCUMENTS, IF INCLUDED, ONLY VIEWABLE IN PDF VERSION OF REPORT Kianna Bunch MD PhD LAB PATHOLOGY ORDERABLES F inal Result PATHOLOGY [facility] 3rd Floor [place], [place] [phone] * POCT glucose (05/22/2022 6:40 AM ELECTRICAL UNIT REBUILDER) Glucose, POC 141 70 - 199 mg/dL [facility] Blood 05/22/2022 6:40 AM ELECTRICAL UNIT REBUILDER 05/22/2022 6:40 AM ELECTRICAL UNIT REBUILDER Kianna Bunch MD PhD LAB POCT ORDERABLES - ROSEMARY CE Final Result Performing Organization Address [facility] Co de Phone Number [facility] [place] [address] documented in this encounter Visit Diagnoses Diagnosis [...] AnalgesiaIndications:Pre-Emptiv e Analgesia Given 05/22/2022 6:32 AM ELECTRICAL UNIT REBUILDER 1,000 mg acetaminophen (TYLENOL) tablet 1,000 mg 1,000 mg, oral, Every 6 hours scheduled, First dose (after last modification) on Sat05/22/22 at 1400, Indications: PainIndications:Pain Given 05/23/2022 12:15 PM ELECTRICAL UNIT REBUILDER 1,000 mg Given 05/23/2022 4:59 AM ELECTRICAL UNIT REBUILDER 1,000 mg Given 05/22/2022 7:03 PM ELECTRICAL UNIT REBUILDER 1,000 mg albuterol HFA (PROVENTIL HFA,VENTOLIN HFA,PROAIR HFA) 90 mcg/actuation inhaler 2 puff 2 puff, inhalation, Every 6 hours PRN (supervisor correspondence section), wheezing, Starting on Sat05/22/22 at 1315 amLODIPine (NORVASC) tablet 5 mg 5 mg, oral, Every morning, First dose on Sat05/23/22 at 0900, Indications: hypertensionIndications:hypertension Given 05/23/2022 8:16 AM ELECTRICAL UNIT REBUILDER 5 mg dextrose (D10W) 10% bolus 250 [...] Prophylaxis, MedicalIndications:Prophylaxis, Medical Given 05/23/2022 4:59 AM ELECTRICAL UNIT REBUILDER [address] (CYMBALTA) extended release capsule 60 mg 60 mg, oral, Nightly, First dose on Sat05/22/22 at 2100, Capsule may be opened and contents mixed with applesauce or apple juice ONLY. Do not crush, chew, cut, dissolve, open or otherwise manipulate tablet/capsule., Indications: Neuropathic PainIndications:Neuropathic Pain Given 05/22/2022 8:58 PM ELECTRICAL UNIT REBUILDER 60 mg fluticasone furoate-vilanteroL (BREO ELLIPTA) 200-25 mcg/dose inhaler 1 puff 1 puff, inhalation, Daily (supervisor correspondence section), First dose on Sat05/22/22 at 1400 Given 05/23/2022 8:40 AM ELECTRICAL UNIT REBUILDER 1 puff fluticasone furoate-vilanteroL (BREO ELLIPTA) 200-25 [...] more., Indications: PainIndications:Pain Given 05/22/2022 12:00 PM ELECTRICAL UNIT REBUILDER 0. 2 mg Given 05/22/2022 11:42 AM ELECTRICAL UNIT REBUILDER 0.2 mg Given 05/22/2022 11:31 AM ELECTRICAL UNIT REBUILDER 0.2 mg insulin lispro (HumaLOG, ADMELOG) 100 [...] Diabetes MellitusIndications:Diabetes Mellitus Given 05/22/2022 8:59 PM ELECTRICAL UNIT REBUILDER 2 Units Right Upper Arm insulin lispro [...] Diabetes MellitusIndications:Diabetes Mellitus Given 05/23/2022 8:16 AM ELECTRICAL UNIT REBUILDER 1 Units Left Lower Abdomen Given 05/22/2022 5:44 PM ELECTRICAL UNIT REBUILDER 1 Units Ri ght Lower Abdomen insulin lispro (HumaLOG, ADMELOG) 100 unit/mL injection 3 Units 3 Units, subcutaneous, Once, On Sat05/22/22 at 1145, For 1 dose, Phase I, Indications: HyperglycemiaIndications:Hype rglycemia Given 05/22/2022 11:21 AM ELECTRICAL UNIT REBUILDER 3 Units Left Upper Arm Lactated Ringer's (LR) infusion 30 mL/hr, intravenous, Continuous, Starting on Sat05/22/22 at 0630 New Bag 05/22/2022 9:36 AM ELECTRICAL UNIT REBUILDER Rate/Dose Verify 05/22/2022 7:47 AM ELECTRICAL UNIT REBUILDER 30 mL/h r Rate/Dose Change 05/22/2022 7:47 AM ELECTRICAL UNIT REBUILDER 30 mL/h r levothyroxine (SYNTHROID) tablet 75 mcg 75 mcg, oral, Every morning, First dose on Sat05/23/22 at 0900, Administer on an empty stomach, preferably 30 minutes before breakfast. Take 4 hours apart from antacids, iron and calcium products. Separate from tube feeds, if applicable., Indications: hypothyroidismIndications:hypothyroidism Given 05/23/2022 8:16 AM ELECTRICAL UNIT REBUILDER 75 mcg nortriptyline (PAMELOR) capsule 10 mg 10 mg, oral, Nightly, First dose on Sat05/22/22 at 2100, Indications: Postherpetic Neuralgia, and sleepIndications:Postherpetic Neuralgia,and sleep Given 05/22/2022 8:58 PM ELECTRICAL UNIT REBUILDER 10 mg oxyCODONE (ROXICODONE) tablet 5 mg 5 mg, oral, Every 4 hours PRN, 2nd line for pain, Starting on Sat05/22/22 at 1309, May administer 1 hour after 1st line agent for uncontrolled or increasing pain. , Indications: PainIndications:Pain Given 05/23/2022 12:15 PM ELECTRICAL UNIT REBUILDER 5 mg Given 05/23/2022 4:59 AM ELECTRICAL UNIT REBUILDER 5 mg Given 05/22/2022 1:19 PM ELECTRICAL UNIT REBUILDER [address] (PROTONIX) extended release tablet 40 mg 40 mg, oral, Daily, First dose on Sat05/23/22 at 0900, Do not crush, chew, cut, dissolve, open or otherwise manipulate tablet/capsule., Indications: Treatment of Non-Bleeding Gastric DisorderIndications:Treatment of Non-Bleeding Gastric Disorder Given 05/23/2022 8:15 AM ELECTRICAL UNIT REBUILDER 40 mg propranoloL (INDERAL) tablet 40 mg 40 mg, oral, 2 times daily, First dose on Sat05/22/22 at 1345 Given 05/23/2022 4:58 AM ELECTRICAL UNIT REBUILDER 40 mg Given 05/22/2022 4:28 PM ELECTRICAL UNIT REBUILDER 40 mg topiramate (TOPAMAX) tablet 25 mg 25 mg, oral, 3 times daily, First dose on Sat05/22/22 at 1600, Indications: painIndications:pain Given 05/23/2022 8:16 AM ELECTRICAL UNIT REBUILDER 25 mg Given 05/22/2022 8:58 PM ELECTRICAL UNIT REBUILDER 25 mg Given 05/22/2022 4:29 PM ELECTRICAL UNIT REBUILDER 25 mg documented in this encounter Discontinued [...] Recently Administered Medications Times are shown in ELECTRICAL UNIT REBUILDER. Scheduled Medication Order 05/21/2022 05/22/2022 05/23/2022 acetaminophen [...] 1 puff (CANCELED) 1 puff, inhalation, Daily (supervisor correspondence section), First dose on Sat05/22/22 at 1400 1400 (Not Given - Provider: Daisha Grimm, HIGH PRESSURE FIRER - Reason: Other - Comment: patient not [...] 2 puff, inhalation, Every 6 hours PRN (supervisor correspondence section), wheezing, Starting on Sat05/22/22 at 1315 dextrose [...] 05/23/2022 documented in this encounter Care Teams Faculty Research Assistant Relationship Specialty Start Date End Date Dat Benito DO [address] [place] [address] PCP - General Internal Medicine 09/28/21 Aft, Kianna Machado MD PhD [address] [place] [address] Surgeon Surgical Oncology 11/22/17 Santiago Gilbert MD [address] [place] [address] Account Collector Gastroenterology 11/22/17 Abbi Ventura MD [address] [place] [address] Medical Oncologist/Associate Account Manager Medical Oncology 12/03/18 Montse Thompson MD [address] [place] [address] Consulting Physician Gynecologic Oncology 12/03/18 Lela Hardy MD PhD [address] [place] [address] Radiation Oncologist Radiation Oncology 12/23/18 Trena Obando MD [address] [place] [address] Consulting Physician Neurology 09/18/21 documented as of this encounter
--- OUTSIDE RECORDS SUMMARY | 2024-04-24 14:46 | XMS_ITS | Encounter Summary ---
Author Organization [facility] Healthcare Address [address] [place] [address] Care Team Providers Care Director Of Golf Name Role Phone Aft, Kianna Machado MD PhD Unavailable [phone] Santiago Gilbert MD Unavailable [phone] Abbi Ventura MD Unavailable Montse Thompson MD Unavailable [phone] Lela Hardy MD PhD Unavailable [phone] Trena Obando MD Unavailable [phone] Dat Benito DO Primary Care Provider [phone] Reason for Visit * Reason Comments OT Treatment * Consultation (Routine) - Closed Specialty Diagnoses / Procedures Referred By Contac t Referred To Contact Occupational Therapy Diagnoses Malignant neoplasm of upper-inner quadrant of left breast in female, estrogen receptor negative (HCC) Lymphedema Abbi Ventura MD [address] [place] [address] [address] [place] [address] Phone: tel: fax: [address] [address] Referral ID Status Reason Start Date Expiration Date V isits Requested Visits Authorized [id number] Closed Specialty Services Required 11/19/2022 12/19/2023 24 24 Encounter Details Date Type Department Care Team (Late st Contact Info) Description 11/22/2022 9:15 AM CDT Therapy [facility] Occupational Therapy [address] [place] [address] Kassie Beltrán, OT Malignant neoplasm of upper-inner [...] 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 OT Initial Evaluation Occupational Therapy Evaluation 11/22/2022 Aleah Gerber 1955 67 y.o. female Abbi Ventura MD [address] [place] [address] [address] [place] [address] ICD-9-CM ICD-10-CM 1. Malignant neoplasm of upper-inner [...] Breast Needle Localization partial mastectomy (L), Biopsy [employer] Lymph Node With Lymphoscintigraphy (L), Insertion Port [...] none Edema yes Pitting No pitting [place] none Fungal Infection None Infections none Skin [...] activities. Plan: Occupational Therapy Interventions: ther ex/proc. (28775)- exercise/strengthening/stretching; ther act (36699); manual therapy including MLD (35413); self care/home management training-self bandaging/self massage (17410); orthotics management and training/compression garment measurements (22407); compression pump assessment, home exercises program instruction, [...] 11/22/2022 documented in this encounter Care Teams Director Of Golf Relationship Specialty Start Date End Date Dat Benito DO [address] [place] [address] PCP - General Internal Medicine 09/28/21 Aft, Kianna Machado MD PhD [address] [place] [address] Surgeon Surgical Oncology 11/22/17 Santiago Gilbert MD [address] [place], [place] [id number] Electrogalvanizing Machine Operator Gastroenterology 11/22/17 Abbi Ventura MD 10 [facility] [address] [place] [address] Medical Oncologist/Clinic Licensed Practical Nurse Medical Oncology 12/03/18 Montse Thompson MD 10 [facility] [address] [place], [place] [address] Consulting Physician Gynecologic Oncology 12/03/18 Lela Hardy MD PhD 10 [facility] [address] [place], [place] [address] Radiation Oncologist Radiation Oncology 12/23/18 Trena Obando MD [address] [place], [place] [address] Consulting Physician Neurology 09/18/21 documented as of this encounter
--- OUTSIDE RECORDS SUMMARY | 2024-04-24 14:46 | XMS_ITS | Encounter Summary ---
Author Organization [facility] Healthcare Address [address] [place] [address] Care Team Providers Care Hammerer Tab Name Role Phone Aft, Kianna Machado MD PhD Unavailable [phone] Santiago Gilbert MD Unavailable [phone] Abbi Ventura MD Unavailable Montse Thompson MD Unavailable [phone] Lela Hardy MD PhD Unavailable [phone] Trena Obando MD Unavailable [phone] Dat Benito DO Primary Care Provider [phone] Reason for Visit * MRI/CAT/PET Scan (Routine) - Closed Specialty Diagnoses / Procedures Referred By Contac t Referred To Contact Radiology Diagnoses BRCA2 gene mutation positive in female Procedures CT Abdomen Pelvis WO Contrast CT Abdomen Pelvis W Contrast Montse Thompson MD [phone] [place] [address] Phone: tel: fax: [address] [address] Referral ID Status Reason Start Date Expiration Date Visits Re quested Visits Authorized [id number] Closed 11/19/2022 12/19/2023 1 1 Encounter Details Date Type Department Care Team (Latest Contact Info) Description 11/23/2022 2:25 PM CDT - 11/23/2022 11:59 PM CDT Hospital Encounter [facility] [address] [place] [address] BRCA2 gene mutation positive in female Discharge [...] on file 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 Gender Identity Not on file Sexual Orientation [...] ovarian cancer status post bilateral mastectomy and hysterectomy/un-nmnffzii-smobuzepayga TECHNIQUE: ??Transaxial computed tomographic images of the [...] ovarian cancer status post bilateral mastectomy and hysterectomy/cv-ydjxuthq-iryppqcvvmiy TECHNIQUE: Transaxial computed tomographic images of the [...] 1.6(H) 0.6 - 1.1 mg/dL [facility] Blood 11/23/2022 2:59 PM CDT 11/23/2022 2:59 PM CDT Montse Thompson MD LAB POCT ORDERABLES - DE VICE Final Result [facility] One [facility] Department [place] [address] documented in this encounter Visit Diagnoses Diagnosis BRCA2 gene mutation positive in female documented in this encounter Care Teams Hammerer Tab Relationship Specialty Start Date End Date Dat Benito DO [address] [place] [address] PCP - General Internal Medicine 09/28/21 Aft, Kianna Machado MD PhD [address] [place] [address] Surgeon Surgical Oncology 11/22/17 Santiago Gilbert MD [address] [place] [address] Radiologist Physician Gastroenterology 11/22/17 Abbi Ventura MD [address] [place] [address] [address] [place] [address] Medical Oncologist/Repairer [employer] Medical Oncology 12/03/18 Montse Thompson MD [address] [place] [address] Consulting Physician Gynecologic Oncology 12/03/18 Lela Hardy MD PhD 10 [facility] [address] [place] [address] Radiation Oncologist Radiation Oncology 12/23/18 Trena Obando MD [address] [place] [address] Consulting Physician Neurology 09/18/21 documented as of this encounter
--- OUTSIDE RECORDS SUMMARY | 2024-04-24 14:46 | XMS_ITS | Encounter Summary ---
Author Organization [facility] Address [address] [place] [address] Phone Care Team Providers Care Director Of Vital Statistics Name Role Phone Aft, Kianna Machado MD PhD Unavailable [phone] Santiago Gilbert MD Unavailable [phone] Abbi Vetnura MD Unavailable Montse Thompson MD Unavailable [phone] Lela Hardy MD PhD Unavailable [phone] Trena Obando MD Unavailable [phone] Dat Benito DO Primary Care Provider [phone] Encounter Details Date Type Department Care Team (Late st Contact Info) Description 09/03/2022 Orders Only [facility] Surgery [address] [facility] Advanced Medicine 5th [place] [address] [place] [address] Cat Baez, FITTER ARMAMENT [address] [place] [address] Social History Tobacco Use Types [...] file 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 Gender Identity Not on file Sexual Orientation Not on file documented as of this encounter Plan of Treatment Not on file documented as of this encounter Visit Diagnoses Not on filedocumented in this encounter Care Teams Director Of Vital Statistics Relationship Specialty Start Date End Date Dat Benito DO [address] [place] [address] PCP - General Internal Medicine 09/28/21 AftKianna MD PhD [address] [place] [address] Surgeon Surgical Oncology 11/22/17 Santiago Gilbert MD [address] [place] [address] Db2 Dba Gastroenterology 11/22/17 Abbi Ventura MD [address] [place] [address] Medical Oncologist/Industry Consultant Medical Oncology 12/03/18 Montse Thompson MD [address] [place] [address] Consulting Physician Gynecologic Oncology 12/03/18 Lela Hardy MD PhD [address] [place] [address] Radiation Oncologist Radiation Oncology 12/23/18 Trena Obando MD [address] [place] [address] Consulting Physician Neurology 09/18/21 documented as of this encounter
--- OUTSIDE RECORDS SUMMARY | 2024-04-24 14:46 | XMS_ITS | Encounter Summary ---
Author Organization [facility] Healthcare Address [address] [place] [address] Care Team Providers Care Services Program Manager Name Role Phone Kianna Bunch MD PhD Unavailable [phone] Santiago Gilbert MD Unavailable [phone] Abbi Ventura MD Unavailable Montse Thompson MD Unavailable [phone] Lela Hardy MD PhD Unavailable [phone] Trena Obando MD Unavailable [phone] Dat Benito DO Primary Care Provider [phone] Encounter Details Date Type Department Care Team (Late st Contact Info) Description 05/29/[address] 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 Gender Identity Not on file [...] documented as of this encounter Care Teams Services Program Manager Relationship Specialty Start Date End Date Dat Benito DO [address] [place] [address] PCP - General Internal Medicine 09/28/21 Aft, Kianna Machado MD PhD [address] [place] [address] Surgeon Surgical Oncology 11/22/17 Santiago Gilbert MD [address] [place] [address] Dock Pumper Gastroenterology 11/22/17 Abbi Ventura MD [address] [place], [place] [address] Medical Oncologist/Medical Education Manager Medical Oncology 12/03/18 Montse Thompson MD [address] [facility] [address] [place], [place] [address] Consulting Physician Gynecologic Oncology 12/03/18 Lela Hardy MD PhD [address] [facility] [address] [place], [place] [address] Radiation Oncologist Radiation Oncology 12/23/18 Trena Obando MD [address] [place], [place] [address] Consulting Physician Neurology 09/18/21 documented as of this encounter
--- OUTSIDE RECORDS SUMMARY | 2024-04-24 14:46 | XMS_ITS | Encounter Summary ---
Author Organization [facility] Address [address] [place] [address] Phone Care Team Providers Care Entry Level Assistant Manager Name Role Phone Aft, Kianna Machado MD PhD Unavailable [phone] Santiago Gilbert MD Unavailable [phone] Abbi Ventura MD Unavailable Montse Thompson MD Unavailable [phone] Lela Hardy MD PhD Unavailable [phone] Trnea Obando MD Unavailable [phone] Dat Benito DO Primary Care Provider [phone] Reason for Referral * MRI/CAT/PET Scan (Routine) - Closed Specialty Diagnoses / Procedures Referred By Contac t Referred To Contact Radiology Diagnoses At high risk for pancreatic cancer BRCA2 gene mutation positive Procedures MRI Abdomen MRCP W WO Contrast Rosa Shaw NP 1 [facility] [address] [place] [address] Phone: tel: fax: [facility] [address] [place] [address] Referral ID Status Reason Start Date Expiration Date Visits Re quested Visits Authorized [id number] Closed 10/25/2022 11/24/2023 1 1 Reason for Visit * Consultation (Routine) - Closed Specialty Diagnoses / Procedures Referred By Vijaya simpson Referred To Contact Gastroenterology Diagnoses At high risk for pancreatic cancer Abbi Ventura MD [address] [facility] [address] [place] [address] Phone: tel: fax: [facility] (All Locations) Referral ID Status Reason Start Date Expiration Date V isits Requested Visits Authorized [id number] Closed Specialty Services Required 07/06/2022 08/05/2023 1 1 Encounter Details Date Type Department Care Team (Late st Contact Info) Description 10/25/2022 1:30 PM CDT Office Visit [facility] Gastroenterology [facility] Medical Office Building [address], [address] [place] [address] Roe Fofana MD [address] [place] [address] BRCA2 gene mutation positive (Primary [...] on file 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 [facility] Gilberto Callejas Department of Medicine Division of Gastroenterology Interventional & Pancreaticobiliary Endoscopy Program 10/25/[address] Benito and Abbi, Thank you for allowing me the opportunity to see your patient, Aleah Gerber (: 1955) in the [facility] Digestive Disease [facility] at [facility]. Below, please see my complete clinic note with the assessment and plan noted at the bottom. Please do not hesitate to contact me at [phone] should you have any questions regarding this patient's care. Sincerely, Roe Fofana MD nuisance wildlife specialist [facility] Chief Complaint: Patient referred for evaluation of [...] Breast Needle Localization partial mastectomy (L), Biopsy [place] Lymph Node With Lymphoscintigraphy (L), Insertion Port [...] a hereditary basis with an ~80% penetrance ([facility] Genes and Development 2014). While [...] PDAC, and specific germline mutations in Ashkenazi Religion cohorts (germline 6174delT BRCA2 mutation) have been well described ([facility] Genes and Development 2014; Toya et al [...] MRCP W WO Contrast (06/27/2023 11:15 AM CHUCKING MACHINE SET UP OPERATOR) Anatomical Region Laterality Modality Body N/A Magnetic Resonan ce 06/27/2023 12:3 9 PM CHUCKING MACHINE SET UP OPERATOR Impressions 06/27/2023 1:32 PM CHUCKING MACHINE SET UP OPERATOR No evidence of primary malignancy or metastatic disease in the abdomen. Dictated by: Lily Rashid M.D. The radiology attending physician has personally reviewed this study, and had reviewed and/or edited this written report and agrees with it. Electronically signed by: Nicholas Olmos M.D. Narrative 06/27/2023 1:32 PM CHUCKING MACHINE SET UP OPERATOR EXAMINATION: 1. MAGNETIC RESONANCE IMAGING OF THE [...] 23 documented in this encounter Care Teams Entry Level Assistant Manager Relationship Specialty Start Date End Date Dat Benito DO [address] [place] [address] PCP - General Internal Medicine 09/28/21 Aft, Kianna Machado MD PhD [address] [place] [address] Surgeon Surgical Oncology 11/22/17 Santiago Gilbert MD [address] [place] [address] Mine Engineering Manager Gastroenterology 11/22/17 Abbi Ventura MD [address] [facility] [address] [place], [place] [address] Medical Oncologist/Lap Winding Machine Operator Medical Oncology 12/03/18 Montse Thompson MD [address] [facility] [address] [place], [place] [address] Consulting Physician Gynecologic Oncology 12/03/18 Lela Hardy MD PhD [address] [facility] [address] [place] [address] Radiation Oncologist Radiation Oncology 12/23/18 Trena Obando MD [address] [place], [place] [address] Consulting Physician Neurology 09/18/21 documented as of this encounter
--- OUTSIDE RECORDS SUMMARY | 2024-04-24 14:46 | XMS_ITS | Encounter Summary ---
Author Organization [facility] Address [address] [place] [address] Phone Care Team Providers Care City Carrier Assistant Name Role Phone Aft, Kianna Machado MD PhD Unavailable [phone] Santiago Gilbert MD Unavailable [phone] Abbi Ventura MD Unavailable Montse Thompson MD Unavailable [phone] Lela Hardy MD PhD Unavailable [phone] Trena Obando MD Unavailable [phone] Dat Benito DO Primary Care Provider [phone] Encounter Details Date Type Department Care Team (Late st Contact Info) Description 09/03/2022 3:20 PM CDT Office Visit [facility] Advanced Medicine 5th [place] [address] [place] [address] Aft, Kianna Machado MD PhD [address] [place] [address] Malignant neoplasm of upper-inner quadrant of left [...] on file 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 Kianna Bunch MD PhD staff software engineer I have seen and examined Aleah Gerber [...] Primary documented in this encounter Care Teams City Carrier Assistant Relationship Specialty Start Date End Date Dat Benito DO [address] [place] [address] PCP - General Internal Medicine 09/28/21 Kianna Bunch MD PhD [address] [place] [address] Surgeon Surgical Oncology 11/22/17 Santiago Gilbert MD [address] [place] [address] Contract Lead Gastroenterology 11/22/17 Abbi Ventura MD [address] [place] [address] [address] [place] [address] Medical Oncologist/Top Screw Medical Oncology 12/03/18 Montse Thompson MD [address] [place] [address] [address] [place] [address] Consulting Physician Gynecologic Oncology 12/03/18 Lela Hardy MD PhD [address] [place] [address] [address] [place] [address] Radiation Oncologist Radiation Oncology 12/23/18 Trena Obando MD [address] [place] [address] Consulting Physician Neurology 09/18/21 documented as of this encounter
--- OUTSIDE RECORDS SUMMARY | 2024-04-24 14:46 | XMS_ITS | Encounter Summary ---
Author Organization [facility] Address [address] [place] [address] Phone Care Team Providers Care Dietetics Professor Name Role Phone Aft, Kianna Machado MD PhD Unavailable [phone] Santiago Gilbert MD Unavailable [phone] Abbi Ventura MD Unavailable Montse Thompson MD Unavailable [phone] Lela Hardy MD PhD Unavailable [phone] Trena Obando MD Unavailable [phone] Dat Benito DO Primary Care Provider [phone] Encounter Details Date Type Department Care Team (Late st Contact Info) Description 10/25/2022 3:[address] 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 Gender Identity Not on file Sexual Orientation [...] 10/25/2022 documented in this encounter Care Teams Dietetics Professor Relationship Specialty Start Date End Date Dat Benito DO [address] [place] [address] PCP - General Internal Medicine 09/28/21 Aft, Kianna Machado MD PhD [address] [place] [address] Surgeon Surgical Oncology 11/22/17 Santiago Gilbert MD [address] [place] [address] Health Spa Manager Gastroenterology 11/22/17 Abbi Ventura MD [facility] [address] [place] [address] Medical Oncologist/Surgeon Partner Medical Oncology 12/03/18 Montse Thompson MD [address] [place] [address] Consulting Physician Gynecologic Oncology 12/03/18 Lela Hardy MD PhD [address] [place] [address] Radiation Oncologist Radiation Oncology 12/23/18 Trena Obando MD [address] [place] [address] Consulting Physician Neurology 09/18/21 documented as of this encounter
--- OUTSIDE RECORDS SUMMARY | 2024-04-24 14:46 | XMS_ITS | Encounter Summary ---
Author Organization [facility] Address [address] [place] [address] Phone Care Team Providers Care Access Spec Name Role Phone Aft, Kianna Machado MD PhD Unavailable [phone] Santiago Gilbert MD Unavailable [phone] Abbi Ventura MD Unavailable Montse Thompson MD Unavailable [phone] Lela Hardy MD PhD Unavailable [phone] Trena Obando MD Unavailable [phone] Dat Benito DO Primary Care Provider [phone] Encounter Details Date Type Department Care Team (Late st Contact Info) Description 08/31/2022 Telephone [facility] Oncology [address] [place] [address] Cat Ivan Social History Tobacco Use Types [...] file 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 Gender Identity Not on file Sexual [...] on filedocumented in this encounter Care Teams Access Spec Relationship Specialty Start Date End Date Dat Benito DO [address] [place] [address] PCP - General Internal Medicine 09/28/21 Aft, Kianna Machado MD PhD [address] [place] [address] Surgeon Surgical Oncology 11/22/17 Santiago Gilbert MD [address] [place] [address] Convex Grinder Gastroenterology 11/22/17 Abbi Ventura MD [address] [place] [address] Medical Oncologist/Carding Machine Feeder Medical Oncology 12/03/18 Montse Thompson MD [address] [place] [address] Consulting Physician Gynecologic Oncology 12/03/18 Lela Hardy MD PhD [address] [place] [address] Radiation Oncologist Radiation Oncology 12/23/18 Trena Obando MD [address] [place] [address] Consulting Physician Neurology 09/18/21 documented as of this encounter
--- OUTSIDE RECORDS SUMMARY | 2024-04-24 14:46 | XMS_ITS | Encounter Summary ---
Author Organization [facility] Address [address] [place] [address] Phone Care Team Providers Care Shipping Technician Name Role Phone Aft, Kianna Machado MD PhD Unavailable [phone] Santiago Gilbert MD Unavailable [phone] Abbi Ventura MD Unavailable Montse Thompson MD Unavailable [phone] Lela Hardy MD PhD Unavailable [phone] Trena Obando MD Unavailable [phone] Dat Benito DO Primary Care Provider [phone] Reason for Referral * MRI/CAT/PET Scan (Routine) - Closed Specialty Diagnoses / Procedures Referred By Contac t Referred To Contact Radiology Diagnoses Malignant neoplasm of upper-inner quadrant of left breast in female, 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) Procedures CT Chest Abdomen Pelvis W Contrast Abbi Ventura MD [address] [facility] [address] [place] [address] Phone: tel: fax: [facility] Referral ID Status Reason Start Date Expiration Date Visits Re quested Visits Authorized [id number] Closed 10/25/2022 11/24/2023 1 1 Encounter Details Date Type Department Care Team (Late st Contact Info) Description 10/25/2022 3:30 PM CDT Office Visit [facility] Oncology [address] [place] [address] Abbi Ventura MD [address] [facility] [address] [place] [address] Malignant neoplasm of upper-inner quadrant of left [...] on file Legal Sex Female 1:06 AM VASCULAR TECH Gender Identity Not on file Sexual Orientation [...] positive and VUS in BRIP1 and NBN. [employer] showed no mutation in MLH 1 or PMS2 suggesting that the patient does not have Grullon syndrome. 4. Allergic reaction to oxaliplatin during cycle 6 of FOLFOX 5. DYPD genotype normal. 6. DVT/PE diagnosed 05/28/18 7. 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 Partial mastectomy and [...] 04/13/22 showed invasive ductal carcinoma. ER negative OH negative Her 2 negative Bilateral mastectomy 05/22/22 [...] Recent labs, radiology and pathology reviewed in [facility] ASSESSMENT: Stage I [id number] right breast cancer -ER negative OH negative Her 2 negative- Mammaprint could not be done due to insufficient tumor. 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 F/u Dr. Gilbert, her local operational review sergeant, regarding screening colonoscopy Aleah Gerber will follow up as directed above, she was encouraged to call in the interim with questions or concerns. We will continue to monitor and review for side effects from treatment. Abbi Ventura MD special assets officer Division of Oncology Section of Medical Oncology [facility] Attendant Coin Operated Laundry completed by using [employer] Direct speaking software, therefore, transcriptionvariances may occur. documented in this encounter Plan of Treatment Not on file documented as of this encounter Results * (ABNORMAL) CBC with auto differential (01/24/2023 1:08 PM CDT) WBC 9.7 3.8 - 9.9 K/cumm [facility] Comment:Testing performed by : [address] [address] Hgb 11.6(L) 11.9 - 15.5 g/dL [facility] Comment:Testing performed by : [address] [address] Hct 36.1 35.6 - 45.5 % [facility] Comment:Testing performed by : [address] [address] Plt 189 150 - 400 K/cumm [facility] Comment:Testing performed by : [address] [address] MPV 9.7 9.1 - 12.3 fL [facility] RBC 4.03 3.90 - 5.20 M/cumm [facility] MCV 89.6 81.3 - 96.4 fL [facility] MCH 28.8 27.1 - 33.3 pg [facility] MCHC 32.1(L) 32.3 - 35.7 g/dL [facility] RDW CV 13.5 11.1 - 14.9 % [facility] RDW SD 44.5 35.7 - 48.1 fL [facility] NRBC abs 0.00 0.00 - 0.01 K/cumm [facility] Blood 01/24/2023 1:08 PM CDT 01/24/2023 1:09 PM CDT us Abbi Ventura MD LAB BLOOD ORDERABLES Final Resul t [facility] One [facility] [place] [address] * (ABNORMAL) Comprehensive metabolic panel (01/24/2023 1:08 PM CDT) Sodium 140 135 - 145 mmol/L [facility] Comment:Testing performed by : [facility], [address] [place] [address] Potassium, pl 4.4 3.3 - 4.9 mmol/L [facility] Chloride 107 97 - 110 mmol/L [facility] CO2 25 22 - 32 mmol/L [facility] Anion gap 8 2 - 15 mmol/L [facility] BUN 17 6 - 25 mg/dL [facility] Creatinine 1.46(H) 0.60 - 1.10 mg/dL [facility] Glucose 138 70 - 199 mg/dL [facility] [...] 2022. Calcium 9.2 8.5 - 10.3 mg/dL [facility] Bilirubin, total 0.5 0.1 - 1.2 mg/dL [facility] Protein, pl 7.3 6.5 - 8.5 g/dL [facility] Albumin 4.3 3.5 - 5.0 g/dL [facility] Alk phos 97 40 - 130 Units/L [facility] ALT 10 7 - 45 Units/L [facility] AST 17 10 - 45 Units/L [facility] Blood 01/24/2023 1:08 PM CDT 01/24/2023 1:09 PM CDT Abbi Ventura MD LAB BLOOD ORDERABLES Final Resul t Performing Organization Address [facility] de Phone Number [facility] [place] [address] * CEA (01/24/2023 1:08 PM CDT) CEA 1.5 <=5.0 ng/mL [facility] Comment: [...] ORDERABLES Final Resul t Performing Organization Address [facility] de Phone Number [facility] [place] [address] * CT Chest Abdomen Pelvis W Contrast [...] 01/24/2023 documented in this encounter Care Teams Shipping Technician Relationship Specialty Start Date End Date Dat Benito DO [address] [place] [address] PCP - General Internal Medicine 09/28/21 Aft, Kianna Machado MD PhD [address] [place] [address] Surgeon Surgical Oncology 11/22/17 Santiago Gilbert MD [address] [place] [address] Remote Sensing Surveyor Gastroenterology 11/22/17 Abbi Ventura MD [address] [place] [address] [address] [place] [address] Medical Oncologist/Welding Machine Assembler Medical Oncology 12/03/18 Montse Thompson MD [address] [facility] [address] [place] [address] Consulting Physician Gynecologic Oncology 12/03/18 Lela Hardy MD PhD [address] [facility] [address] [place] [address] Radiation Oncologist Radiation Oncology 12/23/18 Trena Obando MD [address] [place] [address] Consulting Physician Neurology 09/18/21 documented as of this encounter
--- OUTSIDE RECORDS SUMMARY | 2024-04-24 14:46 | XMS_ITS | Encounter Summary ---
Author Organization [facility] Address [address] [place] [address] Care Team Providers Care Case Sealer Name Role Phone Aft, Kianna Machado MD PhD Unavailable [phone] Santiago Gilbert MD Unavailable [phone] Abbi Ventura MD Unavailable Montse Thompson MD Unavailable [phone] Lela Hardy MD PhD Unavailable [phone] Trena Obando MD Unavailable [phone] Dat Benito DO Primary Care Provider [phone] Reason for Visit * Reason Comments Psychotherapy Encounter Details Date Type Department Care Team (Late st Contact Info) Description 07/23/2022 3:00 PM CDT Clinical Support [facility] [address] [place] [address] Advanced Medicine 1st [place] [address] Cynthia Boyer, PhD [address] [place] [address] Social History Tobacco Use Types Packs/Day Years [...] on file Legal Sex Female 1:06 AM CAMPAIGN MANAGEMENT SPECIALIST Gender Identity Not on file Sexual Orientation Not on file documented as of this encounter Progress Notes * Cynthia Boyer, PhD - 07/23/2022 3:00 PM CDT [facility] PSYCHOLOGY SERVICES PROGRESS NOTE TELEPSYCHOLOGY VISIT Patient [...] identified. Provider was located in the [facility] for the duration of this appointment. Patient confirmed current location is: [address] [place] [phone] Primary (home) DSM-5 Diagnostic Impression: Adjustment disorder [...] on filedocumented in this encounter Care Teams Case Sealer Relationship Specialty Start Date End Date Dat Benito DO [address] [place] [address] PCP - General Internal Medicine 09/28/21 Aft, Kianna Machado MD PhD [address] [place] [address] Surgeon Surgical Oncology 11/22/17 Santiago Gilbert MD [address] [place] [address] Mechanical Applications Engineer Gastroenterology 11/22/17 Abbi Ventura MD [facility] [place] [address] Medical Oncologist/Senior Tableau Developer Medical Oncology 12/03/18 Montse Thompson MD [address] [place] [address] Consulting Physician Gynecologic Oncology 12/03/18 Lela Hardy MD PhD [address] [place] [address] Radiation Oncologist Radiation Oncology 12/23/18 Trena Obando MD [address] [place] [address] Consulting Physician Neurology 09/18/21 documented as of this encounter
--- OUTSIDE RECORDS SUMMARY | 2024-04-24 14:46 | XMS_ITS | Encounter Summary ---
Author Organization [facility] Address [address] [place] [address] Phone Care Team Providers Care Fruit Stuffer Name Role Phone AftKianna MD PhD Unavailable [phone] Santiago Gilbert MD Unavailable [phone] Abbi Ventura MD Unavailable Montse Thompson MD Unavailable [phone] Lela Hardy MD PhD Unavailable Trena Obando MD Unavailable Dat Benito DO Primary Care Provider [phone] Reason for Visit * Reason Comments Follow-up Encounter Details Date Type Department Care Team (Late st Contact Info) Description 06/04/2022 2:55 PM REAL ESTATE SPECIALIST Office Visit [facility] Surgery [facility] Advanced Medicine 5th [place] [address] [place] [address] AfKianna simpson MD PhD [address] [place] [address] Malignant neoplasm of upper-inner quadrant of left [...] Legal Sex Female 1:06 AM REAL ESTATE SPECIALIST Gender Identity Not on file Sexual Orientation Not on file documented as of this encounter Last Filed Vital Signs Vital Sign Reading Time Taken Comments Blood Pressure - - Pulse - - Temperature - - Respiratory Rate - - Oxygen Saturation - - Inhaled Oxygen Concentration - - Weight 108.9 kg (240 lb) 06/04/2022 3:03 PM REAL ESTATE SPECIALIST Height 175.3 cm (5' 9 ) 06/04/2022 3:03 PM REAL ESTATE SPECIALIST Body Mass Index 35.44 06/04/2022 3:03 PM REAL ESTATE SPECIALIST documented in this encounter Progress Notes * Kianna Bunch MD PhD - 06/04/2022 2:55 PM CST Kianna Bunch M.D., Ph.D., [facility] Section of Surgical Oncology and Endocrinology [facility] School of [address], [address] [facility], [place] [address] - NAME: Aleah Gerber : 1955 DATE: [...] call with questions. Kianna Bunch MD PhD grinder operator automatic ESTATE SPECIALIST documented in this encounter Plan of [...] 05/23/2022 added in this encounter Care Teams Fruit Stuffer Relationship Specialty Start Date End Date Dat Benito DO [address] [place] [address] PCP - General Internal Medicine 09/28/21 Aft, Kianna Machado MD PhD [address] [place] [address] Surgeon Surgical Oncology 11/22/17 Santiago Gilbert MD [address] [place] [address] Deputy Harbormaster Gastroenterology 11/22/17 Abbi Ventura MD [address] [place], [place] [address] Medical Oncologist/Powderer Medical Oncology 12/03/18 Montse Thompson MD [address] [place] [address] Consulting Physician Gynecologic Oncology 12/03/18 Lela Hardy MD PhD [address] [facility] [address] [place] [address] Radiation Oncologist Radiation Oncology 12/23/18 Trena Obando MD [address] [place] [address] Consulting Physician Neurology 09/18/21 documented as of this encounter
--- OUTSIDE RECORDS SUMMARY | 2024-04-24 14:46 | XMS_ITS | Encounter Summary ---
Author Organization [facility] Address [address] [place] [address] Phone Care Team Providers Care Innovation Manager Name Role Phone Aft, Kianna Machado MD PhD Unavailable [phone] Santiago Gilbert MD Unavailable [phone] Abbi Ventura MD Unavailable Montse Thompson MD Unavailable [phone] Lela Hardy MD PhD Unavailable [phone] Trena Obando MD Unavailable [phone] Dat Benito DO Primary Care Provider [phone] Reason for Referral * MRI/CAT/PET Scan (Routine) - Closed Specialty Diagnoses / Procedures Referred By Contac t Referred To Contact Radiology Diagnoses Malignant neoplasm of upper-inner quadrant of right female breast, unspecified estrogen receptor status (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) Procedures CT Chest Abdomen Pelvis W Contrast Abbi Ventura MD [address] [facility] [address] [place] [address] Phone: tel: fax: [facility] Referral ID Status Reason Start Date Expiration Date Visits Re quested Visits Authorized [id number] Closed 06/25/2022 07/25/2023 1 1 IAL EVENTS DRIVER Encounter Details Date Type Department Care Team (Late st Contact Info) Description 06/25/2022 Orders Only [facility] Oncology [address] [place] [address] Uriel Corral Malignant neoplasm of descending colon [...] file Legal Sex Female 1:06 AM SPECIAL EVENTS DRIVER Gender Identity Not on file Sexual Orientation Not on file documented as of this encounter Plan of Treatment Not on file documented as of this encounter Results * CA 125 (07/04/2022 12:41 PM SPECIAL EVENTS DRIVER) CA 125 ag 10.5 0.0 - 38.1 units/mL [facility] Comment: Interpretive Data The Bo CA 125 assay procedure was used. Results from different manufacturers or methods may not be comparable. Serial testing should be performed using the same method. Blood 07/04/2022 12:4 1 PM SPECIAL EVENTS DRIVER 07/04/2022 1:52 PM SPECIAL EVENTS DRIVER us Abbi Ventura MD LAB BLOOD ORDERABLES Final Resul t [facility] [place] [address] * CT Chest Abdomen Pelvis W Contrast (07/03/2022 1:46 PM SPECIAL EVENTS DRIVER) Anatomical Region Laterality Modality Body N/A Computed Tomogra phy 07/03/2022 2:01 PM SPECIAL EVENTS DRIVER Impressions 07/03/2022 2:04 PM SPECIAL EVENTS DRIVER 1. No evidence of metastatic or recurrent [...] Willie Bullock M.D. Narrative 07/03/2022 2:04 PM SPECIAL EVENTS DRIVER EXAMINATION: ??Computed tomography of the chest, abdomen [...] colon documented in this encounter Care Teams Innovation Manager Relationship Specialty Start Date End Date Dat Benito DO [address] [place] [address] PCP - General Internal Medicine 09/28/21 Aft, Kianna Mcahado MD PhD [address] [place] [address] Surgeon Surgical Oncology 11/22/17 Santiago Gilbert MD [address] [place] [address] Nutrition Club Ambassador Gastroenterology 11/22/17 Abbi Ventura MD [address] [facility] [address] [place] [address] Medical Oncologist/Heavy Mobile Equipment Repairer Medical Oncology 12/03/18 Montse Thompson MD [address] [facility] [address] [place] [address] Consulting Physician Gynecologic Oncology 12/03/18 Lela Hardy MD PhD [address] [facility] [address] [place] [address] Radiation Oncologist Radiation Oncology 12/23/18 Trena Obando MD [address] [place] [address] Consulting Physician Neurology 09/18/21 documented as of this encounter
--- OUTSIDE RECORDS SUMMARY | 2024-04-24 14:46 | XMS_ITS | Encounter Summary ---
Author Organization [facility] Address [address] [place] [address] Phone Care Team Providers Care Structural Layout Worker Name Role Phone Aft, Kianna Machado MD PhD Unavailable [phone] Santiago Gilbert MD Unavailable [phone] Abbi Ventura MD Unavailable Montse Thompson MD Unavailable [phone] Lela Hardy MD PhD Unavailable [phone] Trena Obando MD Unavailable [phone] Dat Benito DO Primary Care Provider [phone] Encounter Details Date Type Department Care Team (Late st Contact Info) Description 07/04/2022 12:00 PM ARRESTING GEAR OPERATOR Lab [facility] Oncology [address] [place] [address] Malignant neoplasm of upper-inner quadrant of left [...] on file Legal Sex Female 1:06 AM ARRESTING GEAR OPERATOR Gender Identity Not on file Sexual [...] 07/04/2022 documented in this encounter Care Teams Structural Layout Worker Relationship Specialty Start Date End Date Dat Benito DO [address] [place] [address] PCP - General Internal Medicine 09/28/21 Aft, Kianna Machado MD PhD [address] [place] [address] Surgeon Surgical Oncology 11/22/17 Santiago iGlbert MD [address] [place] [address] Foley Artist Gastroenterology 11/22/17 Abbi Ventura MD [address] [place] [address] Medical Oncologist/Drupal Developer Medical Oncology 12/03/18 Montse Thompson MD [address] [place] [address] Consulting Physician Gynecologic Oncology 12/03/18 Lela Hardy MD PhD [address] [place] [address] Radiation Oncologist Radiation Oncology 12/23/18 Trena Obando MD [address] [place] [address] Consulting Physician Neurology 09/18/21 documented as of this encounter
--- OUTSIDE RECORDS SUMMARY | 2024-04-24 14:46 | XMS_ITS | Encounter Summary ---
Author Organization [facility] Address [address] [place] [address] Phone Care Team Providers Care Bleacher [employer] Name Role Phone Aft, Kianna Machado MD PhD Unavailable [phone] Santiago Gilbert MD Unavailable Abbi Ventura MD Unavailable Montse Thompson MD Unavailable [phone] Lela Hardy MD PhD Unavailable [phone] Trena Obando MD Unavailable [phone] Dat Benito DO Primary Care Provider [phone] Encounter Details Date Type Department Care Team (Late st Contact Info) Description 11/19/2022 Orders Only [facility] Obstetrics and Gynecology [address] [facility] Advanced Medicine 13th [place] [address] [place] [address] Evon Arreola RN BRCA2 gene mutation positive [...] on file Legal Sex Female 1:06 AM NEUROSURGERY SPINE PHYSICIAN Gender Identity Not on file Sexual Orientation Not on file documented as of this encounter Plan of Treatment Not on file documented as of this encounter Visit Diagnoses Diagnosis BRCA2 gene mutation positive in female- Primary documented in this encounter Care Teams Bleacher [employer] Relationship Specialty Start Date End Date Dat Benito DO [address] [place] [address] PCP - General Internal Medicine 09/28/21 Aft, Kianna Machado MD PhD [address] [place] [address] Surgeon Surgical Oncology 11/22/17 Santiago Gilbert MD [address] [place] [address] Radio Frequency Technician Gastroenterology 11/22/17 Abbi Ventura MD [address] [place] [address] [address] [place] [address] Medical Oncologist/Freezer Unloader Medical Oncology 12/03/18 Montse Thompson MD [address] [facility] [address] [place] [address] Consulting Physician Gynecologic Oncology 12/03/18 Lela Hardy MD PhD [address] [place] [address] Radiation Oncologist Radiation Oncology 12/23/18 Trena Obando MD [address] [place] [address] Consulting Physician Neurology 09/18/21 documented as of this encounter
--- OUTSIDE RECORDS SUMMARY | 2024-04-24 14:46 | XMS_ITS | Encounter Summary ---
Author Organization [facility] Healthcare Address [address] [place] [address] Care Team Providers Care Injection Molder Name Role Phone Aft, Kianna Machado MD PhD Unavailable [phone] Santiago Gilbert MD Unavailable [phone] Abbi Ventura MD Unavailable Montse Thompson MD Unavailable [phone] Lela Hardy MD PhD Unavailable [phone] Trena Obando MD Unavailable [phone] Dat Benito DO Primary Care Provider [phone] Encounter Details Date Type Department Care Team (Late st Contact Info) Description 10/25/2022 3:15 PM CDT Lab [address] [address] Malignant neoplasm of upper-inner quadrant [...] on file Legal Sex Female 1:06 AM DOCK SUPERVISOR Gender Identity Not on file Sexual [...] - 130 mL/min/1. 73 m2 [facility] Comment: Interpretive Data Reference Interval Normal [...] Final Resul t [facility] [place] [address] * (ABNORMAL) Differential, auto (10/25/2022 3:04 PM CDT) Neutrophil abs 6.6(H) 1.7 - 6.5 K/cumm [facility] Comment:Testing performed by : [facility], [address] [place] [address] Imm gran abs 0.0 0.0 - 0.1 K/cumm [facility] Lymphocyte abs 1.6 0.8 - 3.3 K/cumm [facility] Monocyte abs 0.5 0.2 - 0.8 K/cumm [facility] Eosinophil abs 0.4 0.0 - 0.5 K/cumm [facility] Basophil abs 0.1 0.0 - 0.1 K/cumm [facility] Neutrophil pct 71.7 % [facility] Comment: Interpretive Data Percent cell count reference ranges are not reported, since discordance with absolute values may lead to misinterpretation of CBC data. Current Interpretive Data was last revised on 2017. Imm gran pct 0.1 % [facility] Comment: Interpretive Data Percent [...] on 2017. Basophil pct 0.9 % [facility] Comment: Interpretive Data Percent cell count reference ranges are not reported, since discordance with absolute values may lead to misinterpretation of CBC data. Current Interpretive Data was last revised on 2017. Blood 10/25/2022 3:04 PM CDT 10/25/2022 3:04 PM CDT us Abbi Ventura MD LAB BLOOD ORDERABLES Final [facility]ul t [facility] [place] [address] * CBC with auto differential (10/25/2022 3:04 PM CDT) WBC 9.2 3.8 - 9.9 K/cumm [facility] Comment:Testing performed by : [facility], [address] [place] [address] Hgb 12.5 11.9 - 15.5 g/dL [facility] Comment:Testing performed by : [facility], [address] [place] [address] Hct 38.7 35.6 - 45.5 % [facility] Comment:Testing performed by : [facility], [address] [place] [address] Plt 174 150 - 400 K/cumm [facility] Comment:Testing performed by : [facility], [address] [place] [address] MPV 9.9 9.1 - 12.3 fL [facility] RBC 4.32 3.90 - 5.20 M/cumm [facility] MCV 89.6 81.3 - 96.4 fL [facility] MCH 28.9 27.1 - 33.3 pg [facility] MCHC 32.3 32.3 - 35.7 g/dL [facility] RDW CV 13.6 11.1 - 14.9 % [facility] RDW SD 44.6 35.7 - 48.1 fL [facility] NRBC abs 0.00 0.00 - 0.01 K/cumm [facility] Blood 10/25/2022 3:04 PM CDT 10/25/2022 3:04 PM CDT us Abbi Ventura MD LAB BLOOD ORDERABLES Final Resul t [facility] [place] [address] * CEA (10/25/2022 3:04 PM CDT) Pathologist [facility] CEA 1.0 <=5.0 ng/mL [facility] Comment: Interpretive [...] Final Resul t [facility] [place] [address] * (ABNORMAL) Comprehensive metabolic panel (10/25/2022 3:04 PM CDT) Sodium 139 135 - 145 mmol/L [facility] Comment:Testing performed by : [facility], [address] [place] [address] Potassium, pl 4.1 3.3 - 4.9 mmol/L [facility] Chloride 108 97 - 110 mmol/L [facility] CO2 24 22 - 32 mmol/L [facility] Anion gap 7 2 - 15 mmol/L [facility] BUN 17 6 - 25 mg/dL [facility] Creatinine 1.47(H) 0.60 - 1.10 mg/dL [facility] Glucose 119 70 - 199 mg/dL [facility] [...] Calcium 9.4 8.5 - 10.3 mg/dL [facility] Bilirubin, total 0.4 0.1 - 1.2 mg/dL [facility] Protein, pl 7.0 6.5 - 8.5 g/dL [facility] Albumin 4.3 3.5 - 5.0 g/dL [facility] Alk phos 102 40 - 130 Units/L [facility] ALT 12 7 - 45 Units/L [facility] AST 18 10 - 45 Units/L [facility] Blood 10/25/2022 3:04 PM CDT 10/25/2022 3:04 PM CDT Abbi Ventura MD LAB BLOOD ORDERABLES Final Resul t Performing Organization Address [facility] Co de Phone Number [facility] Department [place] [address] * CA 125 (10/25/2022 3:04 PM CDT) CA 125 ag 8.0 0.0 - 38.1 units/mL [facility] Comment: Interpretive Data The Bo CA 125 assay procedure was used. Results from different manufacturers or methods may not be comparable. Serial testing should be performed using the same method. Blood 10/25/2022 3:04 PM CDT 10/25/2022 6:29 PM CDT Abbi Ventura MD LAB BLOOD ORDERABLES Final Resul t Performing Organization Address [facility] Co de Phone Number [facility] Department [place] [address] documented in this encounter Visit Diagnoses Diagnosis Malignant neoplasm of upper-inner quadrant of left breast in female, estrogen receptor negative (HCC) documented in this encounter Care Teams Injection Molder Relationship Specialty Start Date End Date Dat Benito DO [address] [place] [address] PCP - General Internal Medicine 09/28/21 Aft, Kianna Machado MD PhD [address] [place] [address] Surgeon Surgical Oncology 11/22/17 Santiago Gilbert MD [address] [place] [address] Recycling Program Manager Gastroenterology 11/22/17 Abbi Ventura MD [address] [facility] [place] [address] Medical Oncologist/Computer Programmer Medical Oncology 12/03/18 Montse Thompson MD [address] [facility] [place] [address] Consulting Physician Gynecologic Oncology 12/03/18 Lela Hardy MD PhD [address] [facility] [place], [place] [id number] Radiation Oncologist Radiation Oncology 12/23/18 Trena Obando MD [address] [place], [place] [address] Consulting Physician Neurology 09/18/21 documented as of this encounter
--- OUTSIDE RECORDS SUMMARY | 2024-04-24 14:46 | XMS_ITS | Encounter Summary ---
Author Organization [facility] Address [address] [place] [address] Phone Care Team Providers Care Drawbridge Tender Name Role Phone Aft, Kianna Machado MD PhD Unavailable Santiago Gilbert MD Unavailable [phone] Abbi Ventura MD Unavailable Montse Thompson MD Unavailable [phone] Lela Hardy MD PhD Unavailable [phone] Trena Obando MD Unavailable [phone] Dat Benito DO Primary Care Provider [phone] Reason for Visit * Reason Onset Date Comments Appointment Reminder Call 10/18/202210/18 L MOM confiming 10/25 130pm appt AC Encounter Details Date Type Department Care Team (Late st Contact Info) Description 10/18/2022 Telephone [facility] Gastroenterology [facility] Medical Office Building [address] [place] [address] Lisa Avila Appointment Reminder Call [...] file 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 Gender Identity Not on file Sexual Orientation Not on file documented as of this encounter Miscellaneous Notes * Telephone Encounter - Lisa Avila - 10/18/2022 4:31 PM CDT 10/18 LMOM confiming 10/25 130pm appt AC documented in this encounter Plan of Treatment Not on file documented as of this encounter Visit Diagnoses Not on filedocumented in this encounter Care Teams Drawbridge Tender Relationship Specialty Start Date End Date Dat Benito DO [address] [place] [address] PCP - General Internal Medicine 09/28/21 Aft, Kianna Machado MD PhD [address] [place] [address] Surgeon Surgical Oncology 11/22/17 Santiago Gilbert MD [address] [place] [address] Extrusion Die Repairer Gastroenterology 11/22/17 Abbi Ventura MD [address] [place] [address] Medical Oncologist/Atomizer Assembler Medical Oncology 12/03/18 Montse Thompson MD [address] [place] [address] Consulting Physician Gynecologic Oncology 12/03/18 Lela Hardy MD PhD [address] [facility] [address] [place] [address] Radiation Oncologist Radiation Oncology 12/23/18 Trena Obando MD [facility] [address] [place] [address] Consulting Physician Neurology 09/18/21 documented as of this encounter
--- OUTSIDE RECORDS SUMMARY | 2024-04-24 14:46 | XMS_ITS | Encounter Summary ---
Author Organization [facility] Address [address] [place] [address] Phone Care Team Providers Care Regulatory Affairs Assistant Name Role Phone Aft, Kianna Machado MD PhD Unavailable [phone] Santiago Gilbert MD Unavailable [phone] Abbi Ventura MD Unavailable Montse Thompson MD Unavailable [phone] Lela Hardy MD PhD Unavailable [phone] Trena Obando MD Unavailable [phone] Dat Benito DO Primary Care Provider [phone] Encounter Details Date Type Department Care Team [...] file 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 Gender Identity Not on file Sexual Orientation Not on file documented as of this encounter Plan of Treatment Not on file documented as of this encounter Procedures Procedure Name Priority Date/Time Associated Diagnosis Comments SCAN - PATHOLOGY 07/04/2022 1:53 PM HEEL SLICKER documented in this encounter Results * SCAN - PATHOLOGY (07/04/2022 1:53 PM HEEL SLICKER) us Provider Scanning Final Result documented in this encounter Visit Diagnoses Not on filedocumented in this encounter Care Teams Regulatory Affairs Assistant Relationship Specialty Start Date End Date Dat Benito DO [address] [place] [address] PCP - General Internal Medicine 09/28/21 Aft, Kianna Machado MD PhD [address] [place] [address] Surgeon Surgical Oncology 11/22/17 Santiago Gilbert MD [address] [place] [address] Channel Cementer Gastroenterology 11/22/17 Abbi Ventura MD [address] [place] [address] Medical Oncologist/Piano Mover Medical Oncology 12/03/18 Montse Thompson MD [address] [place] [address] Consulting Physician Gynecologic Oncology 12/03/18 Lela Hardy MD PhD [address] [place] [address] Radiation Oncologist Radiation Oncology 12/23/18 Trena Obando MD [address] [place] [address] Consulting Physician Neurology 09/18/21 documented as of this encounter
--- OUTSIDE RECORDS SUMMARY | 2024-04-24 14:46 | XMS_ITS | Encounter Summary ---
Author Organization [facility] Address [address] [place] [address] Phone Care Team Providers Care Support Services Manager Name Role Phone Aft, Kianna Machado MD PhD Unavailable [phone] Santiago Gilbert MD Unavailable [phone] Abbi Ventura MD Unavailable Montse Thompson MD Unavailable [phone] Lela Hardy MD PhD Unavailable [phone] Trena Obando MD Unavailable [phone] Dat Benito DO Primary Care Provider [phone] Encounter Details Date Type Department Care Team (Late st Contact Info) Description 07/09/2022 Orders Only [facility] Pulmonary [address] [facility] Advanced Medicine 8th [place] [address] [place] [id number] Cristobal Dong MD [address] [place] [address] Social History Tobacco Use Types [...] on file 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 Gender Identity Not on file Sexual Orientation [...] documented as of this encounter Care Teams Support Services Manager Relationship Specialty Start Date End Date Dat Benito DO [address] [place] [address] PCP - General Internal Medicine 09/28/21 Aft, Kianna Machado MD PhD [address] [place] [address] Surgeon Surgical Oncology 11/22/17 Santiago Gilbert MD [address] [place] [address] Automotive Service Consultant Gastroenterology 11/22/17 Abbi Ventura MD [address] [place] [address] [address] [place] [address] Medical Oncologist/Processing Technician Medical Oncology 12/03/18 Montse Thompson MD [address] [facility] [address] [place], [place] [id number] Consulting Physician Gynecologic Oncology 12/03/18 Lela Hardy MD PhD [address] [facility] [place] [address] Radiation Oncologist Radiation Oncology 12/23/18 Trena Obando MD [address] [place], [place] [address] Consulting Physician Neurology 09/18/21 documented as of this encounter
--- OUTSIDE RECORDS SUMMARY | 2024-04-24 14:46 | XMS_ITS | Encounter Summary ---
Author Organization [facility] Healthcare Address [address] [place] [address] Care Team Providers Care Database Dba Name Role Phone Aft, Kianna Machado MD PhD Unavailable [phone] Santiago Gilbert MD Unavailable [phone] Abbi Ventura MD Unavailable Montse Thompson MD Unavailable [phone] Lela Hardy MD PhD Unavailable Trena Obando MD Unavailable Dat Benito DO Primary Care Provider [phone] Reason for Referral * MRI/CAT/PET Scan (Routine) - Closed Specialty Diagnoses / Procedures [facility]erred To Contact Radiology Diagnoses Malignant neoplasm of upper-inner quadrant of right female breast, unspecified estrogen receptor status (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) Procedures CT Chest Abdomen Pelvis W Contrast Abbi Ventura MD [address] [facility] [address] [place] [address] Phone: tel: fax: [facility] Referral ID Status Reason Start Date Expiration Date Visits Re quested Visits Authorized [id number] Closed 06/25/2022 07/25/[address] SUPPORT STAFF Reason for Visit * MRI/CAT/PET Scan (Routine) - Closed Specialty Diagnoses / Procedures Referred By [facility] t Referred To Contact Radiology Diagnoses Malignant neoplasm of upper-inner quadrant of right female breast, unspecified estrogen receptor status (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) Procedures CT Chest Abdomen Pelvis W Contrast Abbi Ventura MD [address] [facility] [address] [address] [place] [address] Phone: tel: fax: [facility] Referral ID Status Reason Start Date Expiration Date Visits Re quested Visits Authorized [id number] Closed 06/25/2022 07/25/2023 1 1 Encounter Details Date Type Department Care Team (Latest Contact Info) Description 07/03/2022 1:22 PM DIRECT SUPPORT STAFF - 07/03/2022 11:59 PM DIRECT SUPPORT STAFF Hospital Encounter [facility] [address] [place] [address] Malignant neoplasm of upper-inner quadrant [...] on file Legal Sex Female 1:06 AM DIRECT SUPPORT STAFF Gender Identity Not on file Sexual Orientation [...] (Appt Today, Awaiting Results) 07/03/2022 1:46 PM DIRECT SUPPORT STAFF Malignant neoplasm of upper-inner quadrant of right female breast, unspecified estrogen receptor status (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 No evidence of metastatic or recurrent [...] Willie Bullock M.D. Narrative 07/03/2022 2:04 PM DIRECT SUPPORT STAFF EXAMINATION: ??Computed tomography of the chest, abdomen [...] * (ABNORMAL) POCT creatinine (07/03/2022 1:35 PM DIRECT SUPPORT STAFF) Creatinine POC 1.4(H) 0.6 - 1.1 mg/dL [facility] Blood 07/03/2022 1:35 PM DIRECT SUPPORT STAFF 07/03/2022 1:35 PM DIRECT SUPPORT STAFF us Abbi Ventura MD LAB POCT ORDERABLES - DEVICE Fin al Result [facility] One [facility] Department [place] [address] documented in this encounter Visit Diagnoses Diagnosis [...] 1 dose Contrast Given 07/03/2022 1:40 PM DIRECT SUPPORT STAFF 88 mL documented in this encounter Orders Medications Ordered That [place] ht Not Have Been Administered Count Last Ordered Date First Ordered Date ioversoL (OPTIRAY 350) injection 88 mL 1 documented in this encounter Care Teams Database Dba Relationship Specialty Start Date End Date Dat Benito DO [address] [place] [address] PCP - General Internal Medicine 09/28/21 Aft, Kianna Machado MD PhD [address] [place] [address] Surgeon Surgical Oncology 11/22/17 Santiago Gilbert MD [address] [place] [address] Elevator Mechanic Apprentice Gastroenterology 11/22/17 Abbi Ventura MD [address] [facility] [address] [place] [address] Medical Oncologist/Residential Real Estate Agent Medical Oncology 12/03/18 Montse Thompson MD [address] [facility] [address] [place] [address] Consulting Physician Gynecologic Oncology 12/03/18 Lela Hardy MD PhD [address] [facility] [address] [place] [address] Radiation Oncologist Radiation Oncology 12/23/18 Trena Obando MD [address] [place] [address] Consulting Physician Neurology 09/18/21 documented as of this encounter
--- OUTSIDE RECORDS SUMMARY | 2024-04-24 14:46 | XMS_ITS | Encounter Summary ---
Author Organization [facility] Address [address] [place] [address] Phone Care Team Providers Care Hand Therapist Name Role Phone Aft, Kianna Machado MD PhD Unavailable [phone] Santiago Gilbert MD Unavailable [phone] Abbi Ventura MD Unavailable Montse Thompson MD Unavailable [phone] Lela Hardy MD PhD Unavailable [phone] Trena Obando MD Unavailable [phone] Dat Benito DO Primary Care Provider [phone] Encounter Details Date Type Department Care Team (Late st Contact Info) Description 07/04/2022 12:30 PM [employer]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?C (97.7 ??F) 07/04/2022 1 2:44 PM 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 Respiratory Rate 18 07/04/2022 12:4 4 PM [employer]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 Oxygen Saturation 95% 07/04/2022 12: 44 PM 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 Inhaled Oxygen Concentration - - Weight 110.9 kg (244 lb 9.6 oz) 023 12:44 PM 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 Height - - Body Mass Index 36.12 06/04/2022 3:03 PM 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 documented in this encounter Progress Notes * [...] and pathology reviewed in [facility] ASSESSMENT: Stage I [id number] right breast cancer -ER negative OK negative [...] cancer - no evidence of cancer recurrence [facility] panel is positive for BRCA2 mutation, and [...] as above F/u Dr. Gilbert, her local director wholesale, regarding screening colonoscopy Repeat scans in 6 months Aleah Gerber will follow up as directed above, she was encouraged to call in the interim with questions or concerns. We will continue to monitor and review for side effects from treatment. Abbi Ventura MD information security manager Division of Oncology Section of Medical Oncology [facility] Dcs Engineer completed by using Gatheredtable Fluency Direct speaking software, therefore, transcriptionvariances may occur. 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 documented in this encounter Plan of Treatment Not on file documented as of this encounter Results * CA 125 (10/25/2022 3:04 PM CDT) CA 125 ag 8.0 0.0 - 38.1 units/mL [facility] Comment: Interpretive Data The Bo CA 125 assay procedure was used. Results from different manufacturers or methods may not be comparable. Serial testing should be performed using the same method. Blood 10/25/2022 3:04 PM CDT 10/25/2022 6:29 PM CDT us Abbi Ventura MD LAB BLOOD ORDERABLES Final Resul t [facility] Department [place] [address] * (ABNORMAL) Comprehensive metabolic panel (10/25/2022 3:04 PM CDT) Sodium 139 135 - 145 mmol/L [facility] Comment:Testing performed by : [facility], [address] [place] [address] Potassium, pl 4.1 3.3 - 4.9 mmol/L [facility] Chloride 108 97 - 110 mmol/L [facility] CO2 24 22 - 32 mmol/L [facility] Anion gap 7 2 - 15 mmol/L [facility] BUN 17 6 - 25 mg/dL [facility] Creatinine 1.47(H) 0.60 - 1.10 mg/dL [facility] Glucose 119 70 - 199 mg/dL [facility] [...] 2022. Calcium 9.4 8.5 - 10.3 mg/dL [facility] Bilirubin, total 0.4 0.1 - 1.2 mg/dL [facility] Protein, pl 7.0 6.5 - 8.5 g/dL [facility] Albumin 4.3 3.5 - 5.0 g/dL [facility] Alk phos 102 40 - 130 Units/L [facility] ALT 12 7 - 45 Units/L [facility] AST 18 10 - 45 Units/L [facility] Blood 10/25/2022 3:04 PM CDT 10/25/2022 3:04 PM CDT us Abbi Ventura MD LAB BLOOD ORDERABLES Final Resul t [facility] Department [place] [address] * CEA (10/25/2022 3:04 PM CDT) CEA 1.0 <=5.0 ng/mL [facility] Comment: Interpretive Data: Reference Range: [...] Final Resul t [facility] Department [place] [address] * CBC with auto differential (10/25/2022 3:04 PM CDT) [facility] Signature WBC 9.2 3.8 - 9.9 K/cumm [facility] Comment:Testing performed by : [facility], [address] [place] [address] Hgb 12.5 11.9 - 15.5 g/dL [facility] Comment:Testing performed by : [address] [address] Hct 38.7 35.6 - 45.5 % [facility] Comment:Testing performed by : [address] [address] Plt 174 150 - 400 K/cumm [facility] Comment:Testing performed by : [address] [address] MPV 9.9 9.1 - 12.3 fL [facility] RBC 4.32 3.90 - 5.20 M/cumm [facility] MCV 89.6 81.3 - 96.4 fL [facility] MCH 28.9 27.1 - 33.3 pg [facility] MCHC 32.3 32.3 - 35.7 g/dL [facility] RDW CV 13.6 11.1 - 14.9 % [facility] RDW SD 44.6 35.7 - 48.1 fL [facility] NRBC abs 0.00 0.00 - 0.01 K/cumm [facility] Blood 10/25/2022 3:04 PM CDT 10/25/2022 3:04 PM CDT Abbi Ventura MD LAB BLOOD ORDERABLES Final Resul t Performing Organization Address [facility]/ZIP Co de Phone Number [facility] Department [place] [address] documented in this encounter Visit Diagnoses Diagnosis Malignant neoplasm of upper-inner quadrant of left breast in female, estrogen receptor negative (HCC)- Primary documented in this encounter Orders Appointment Requests Count Last Ordered Date Fi rst Ordered Date ONCBCN CLINIC APPOINTMENT REQUEST 2 023 07/04/2022 ONCBCN LAB APPOINTMENT 1 10/25/2022 documented in this encounter Care Teams Hand Therapist Relationship Specialty Start Date End Date Dat Benito DO [address] [place] [address] PCP - General Internal Medicine 09/28/21 Aft, Kianna Machado MD PhD [address] [place] [address] Surgeon Surgical Oncology 11/22/17 Santiago Gilbert MD [address] [place] [address] Senior Informatica Etl Developer Gastroenterology 11/22/17 Abbi Ventura MD [address] [place] [address] [address] [place] [address] Medical Oncologist/Commanding Officer Motorized Squad Medical Oncology 12/03/18 Montse Thompson MD [address] [place] [address] [address] [place] [address] Consulting Physician Gynecologic Oncology 12/03/18 Lela Hardy MD PhD [address] [place] [address] [address] [place] [address] Radiation Oncologist Radiation Oncology 12/23/18 Trena Obando MD [address] [place] [address] Consulting Physician Neurology 09/18/21 documented as of this encounter
--- OUTSIDE RECORDS SUMMARY | 2024-04-24 14:46 | XMS_ITS | Encounter Summary ---
Author Organization [facility] Address [address] [place] [address] Care Team Providers Care Manager Of Disaster Recovery Name Role Phone Aft, Kianna Machado MD PhD Unavailable [phone] Santiago Gilbert MD Unavailable [phone] Abbi Ventura MD Unavailable Montse Thompson MD Unavailable [phone] Lela Hardy MD PhD Unavailable [phone] Trena Obando MD Unavailable [phone] Dat Benito DO Primary Care Provider [phone] Encounter Details Date Type Department Care Team (Late st Contact Info) Description 07/04/2022 12:45 PM BADGER DISTILLER OPERATOR Lab [address] [address] Malignant neoplasm of upper-inner quadrant [...] on file Legal Sex Female 1:06 AM BADGER DISTILLER OPERATOR Gender Identity Not on file Sexual Orientation Not on file documented as of this encounter Plan of Treatment Not on file documented as of this encounter Procedures Procedure Name Priority Date/Time Associated Diagnosis Comments EGFR Routine 07/04/2022 12:41 PM BADGER DISTILLER OPERATOR Malignant neoplasm of upper-inner quadrant of left breast in female, 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) (HCC) DIFFERENTIAL AUTO Routine 07/04/2022 12: 41 PM BADGER DISTILLER OPERATOR Malignant neoplasm of upper-inner quadrant of left breast in female, 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) (HCC) CBC WITH AUTO DIFFERENTIAL Routine 07/04/2022 12:41 PM BADGER DISTILLER OPERATOR Malignant neoplasm of upper-inner quadrant of left breast in female, 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) (HCC) CA 125 Routine 07/04/2022 12:41 PM BADGER DISTILLER OPERATOR Malignant neoplasm of upper-inner quadrant of right female breast, unspecified estrogen receptor status (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) CEA Routine 07/04/2022 12:41 PM BADGER DISTILLER OPERATOR Malignant neoplasm of upper-inner quadrant of left breast in female, 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) (HCC) COMPREHENSIVE METABOLIC PANEL Routine 07/04/2022 12:41 PM BADGER DISTILLER OPERATOR Malignant neoplasm of upper-inner quadrant of left breast in female, 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) (HCC) documented in this encounter Results * (ABNORMAL) eGFR (07/04/2022 12:41 PM BADGER DISTILLER OPERATOR) eGFR 45(L) 90 - 130 mL/min/1. [address] [facility] Comment: Interpretive Data Reference Interval [...] reviewed 2021. Blood 07/04/2022 12:4 1 PM BADGER DISTILLER OPERATOR 07/04/2022 12:42 PM BADGER DISTILLER OPERATOR us Abbi Ventura MD LAB BLOOD ORDERABLES Final Resul t [facility] [place] [address] * Differential, auto (07/04/2022 12:41 PM BADGER DISTILLER OPERATOR) Neutrophil abs 5.4 1.7 - 6.5 K/cumm [facility] Comment:Testing performed by : [facility], [address] [place] [address] Imm gran abs 0.0 0.0 - 0.1 K/cumm [facility] Lymphocyte abs 1.5 0.8 - 3.3 K/cumm [facility] Monocyte abs 0.5 0.2 - 0.8 K/cumm [facility] Eosinophil abs 0.4 0.0 - 0.5 K/cumm [facility] Basophil abs 0.1 0.0 - 0.1 K/cumm [facility] Neutrophil pct 68.5 % [facility] Comment: Interpretive Data Percent cell count reference ranges are not reported, since discordance with absolute values may lead to misinterpretation of CBC data. Current Interpretive Data was last revised on 2017. Imm gran pct 0.4 % [facility] Comment: Interpretive Data Percent cell count reference ranges are not reported, since discordance with absolute values may lead to misinterpretation of CBC data. Current Interpretive Data was last revised on 2017. Lymphocyte pct 18.4 % [facility] Comment: Interpretive Data Percent cell count reference ranges are not reported, since discordance with absolute values may lead to misinterpretation of CBC data. Current Interpretive Data was last revised on 2017. Monocyte pct 6.6 % [facility] Comment: Interpretive Data Percent cell count reference ranges are not reported, since discordance with absolute values may lead to misinterpretation of CBC data. Current Interpretive Data was last revised on 2017. Eosinophil pct 5.2 % [facility] Comment: Interpretive Data Percent cell count reference ranges are not reported, since discordance with absolute values may lead to misinterpretation of CBC data. Current Interpretive Data was last revised on 2017. Basophil pct 0.9 % [facility] Comment: Interpretive Data Percent cell count reference ranges are not reported, since discordance with absolute values may lead to misinterpretation of CBC data. Current Interpretive Data was last revised on 2017. Blood 07/04/2022 12:4 1 PM BADGER DISTILLER OPERATOR 07/04/2022 12:42 PM BADGER DISTILLER OPERATOR us Abbi Ventura MD LAB BLOOD ORDERABLES Final Resul t [employer] [facility] [place] [address] * CA 125 (07/04/2022 12:41 PM BADGER DISTILLER OPERATOR) CA 125 ag 10.5 0.0 - 38.1 units/mL [facility] Comment: Interpretive Data The Bo CA 125 assay procedure was used. Results from different manufacturers or methods may not be comparable. Serial testing should be performed using the same method. Blood 07/04/2022 12:4 1 PM BADGER DISTILLER OPERATOR 07/04/2022 1:52 PM BADGER DISTILLER OPERATOR Abbi Ventura MD LAB BLOOD ORDERABLES Final Resul t Performing Organization Address [facility] [place] [address] * CEA (07/04/2022 12:41 PM BADGER DISTILLER OPERATOR) Pathologist [facility] CEA 1.6 <=5.0 ng/mL [facility] Comment: Interpretive Data: Reference Range: Non-Smokers: 0.0 ? 5.0 ng/mL Smokers: 0.0 ? 6.5 ng/mL The Bo CEA assay procedure was used. Results from different manufacturers or methods may not be comparable. Serial testing should be performed using the same method. Current interpretive data was last revised 2021. Blood 07/04/2022 12:4 1 PM BADGER DISTILLER OPERATOR 07/04/2022 1:52 PM BADGER DISTILLER OPERATOR Abbi Ventura MD LAB BLOOD ORDERABLES Final Resul t Performing Organization Address [facility] de Phone Number [facility] [place] [address] * (ABNORMAL) Comprehensive metabolic panel (07/04/2022 12:41 PM BADGER DISTILLER OPERATOR) Sodium 143 135 - 145 mmol/L [facility] Comment:Testing performed by : [facility], [address] [place] [address] Potassium, pl 4.8 3.3 - 4.9 mmol/L [facility] Chloride 109 97 - 110 mmol/L [facility] CO2 28 22 - 32 mmol/L [facility] Anion gap 6 2 - 15 mmol/L [facility] BUN 16 8 - 25 mg/dL [facility] Creatinine 1.32(H) 0.60 - 1.10 mg/dL [facility] Glucose 158 70 - 199 mg/dL [facility] [...] Calcium 9.6 8.5 - 10.3 mg/dL [facility] Bilirubin, total 0.3 0.1 - 1.2 mg/dL [facility] Protein, pl 7.0 6.5 - 8.5 g/dL [facility] Albumin 4.3 3.5 - 5.0 g/dL [facility] Alk phos 98 40 - 130 Units/L [facility] ALT 13 7 - 45 Units/L [facility] AST 16 10 - 45 Units/L [facility] Blood 07/04/2022 12:4 1 PM BADGER DISTILLER OPERATOR 07/04/2022 12:42 PM BADGER DISTILLER OPERATOR us Abbi Ventura MD LAB BLOOD ORDERABLES Final Resul t [facility] Department [place] [address] * (ABNORMAL) CBC with auto differential (07/04/2022 12:41 PM BADGER DISTILLER OPERATOR) Pathologist [facility] WBC 7.9 3.8 - 9.9 K/cumm [facility] Comment:Testing performed by : [facility], [address] [place] [address] Hgb 11.8(L) 11.9 - 15.5 g/dL [facility] Comment:Testing performed by : [address], [place] [address] Hct 37.3 35.6 - 45.5 % [facility] Comment:Testing performed by : [facility], [address] [place] [address] Plt 199 150 - 400 K/cumm [facility] Comment:Testing performed by : [facility], [address] [place] [address] MPV 9.4 9.1 - 12.3 fL [facility] RBC 4.04 3.90 - 5.20 M/cumm [facility] MCV 92.3 81.3 - 96.4 fL [facility] MCH 29.2 27.1 - 33.3 pg [facility] MCHC 31.6(L) 32.3 - 35.7 g/dL [facility] RDW CV 13.4 11.1 - 14.9 % [facility] RDW SD 45.7 35.7 - 48.1 fL [facility] NRBC abs 0.00 0.00 - 0.01 K/cumm [facility] Blood 07/04/2022 12:4 1 PM BADGER DISTILLER OPERATOR 07/04/2022 12:42 PM BADGER DISTILLER OPERATOR us Abbi Ventura MD LAB BLOOD ORDERABLES Final Resul t [facility] [place] [address] documented in this encounter Visit Diagnoses Diagnosis Malignant neoplasm of upper-inner quadrant of right female breast, unspecified estrogen receptor status (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) Malignant neoplasm of descending colon documented in this encounter Care Teams Manager Of Disaster Recovery Relationship Specialty Start Date End Date Dat Benito DO [address] [place] [address] PCP - General Internal Medicine 09/28/21 Aft, Kianna Machado MD PhD [address] [place] [address] Surgeon Surgical Oncology 11/22/17 Santiago Gilbert MD [address] [place] [address] Military Communications Specialist Gastroenterology 11/22/17 Abbi Ventura MD 10 [facility] [address] [place] [address] Medical Oncologist/Internist Medical Doctor Md Medical Oncology 12/03/18 Montse Thompson MD 10 [facility] [address] [place] [address] Consulting Physician Gynecologic Oncology 12/03/18 Lela Hardy MD PhD 10 [facility] [address] [place] [address] Radiation Oncologist Radiation Oncology 12/23/18 Trena Obando MD [address] [place], [place] [address] Consulting Physician Neurology 09/18/21 documented as of this encounter
--- OUTSIDE RECORDS SUMMARY | 2024-04-24 14:46 | XMS_ITS | Encounter Summary ---
Author Organization [facility] Address [address] [place] [address] Phone Care Team Providers Care J2Ee Programmer Name Role Phone Aft, Kianna Machado MD PhD Unavailable [phone] Santiago Gilbert MD Unavailable [phone] Abbi Ventura MD Unavailable Montse Thompson MD Unavailable [phone] Lela Hardy MD PhD Unavailable [phone] Trena Obando MD Unavailable [phone] Dat Benito DO Primary Care Provider [phone] Encounter Details Date Type Department Care Team (Late st Contact Info) Description 06/13/2022 12:30 PM PACKAGE WORKER Office Visit [facility] Oncology [address] [place] [address] Abbi Ventura MD 10 [facility] [address] [place], [place] [id number] Malignant neoplasm of upper-inner quadrant of left [...] file Legal Sex Female 1:06 AM PACKAGE WORKER Gender Identity Not on file Sexual Orientation Not on file documented as of this encounter Last Filed Vital Signs Vital Sign Reading Time Taken Comments Blood Pressure 147/78 06/13/2022 12:50 PM PACKAGE WORKER Pulse 92 06/13/2022 12:50 PM PACKAGE WORKER Temperature 36.2 ??C (97.2 ??F) 06/13/2022 12:[address] Respiratory Rate 16 06/13/2022 12:50 PM PACKAGE WORKER Oxygen Saturation 94% 06/13/2022 12:50 PM PACKAGE WORKER Inhaled Oxygen Concentration - - Weight 109.8 kg (242 lb) 06/13/2022 12:50 PM PACKAGE WORKER Height - - Body Mass Index 35.74 06/04/2022 3:03 PM PACKAGE WORKER documented in this encounter Progress Notes * [...] but are not being displayed. Hospital #: [id number] Taken:05/22/2022 Received:05/22/2022 Reported: 05/30/2022 Patient Type: [facility] OP In Bed Service: Oncology Location: [place] [address] Physician(s): Hortencia Warren M.D. David Yablonsky, DO [...] the above cited diagnosis. The prior biopsy [id number] has been reviewed. In part B, the [...] [facility] ASSESSMENT: Stage I [id number] right breast cancer -ER negative OK negative Her 2 negative- reviewed pathology result with patient. I am ordering Mammaprint to decide on adjuvant chemotherapy. 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 Gilbert, her local communications tower technician, regarding screening colonoscopy Aleah Gerber will follow up as directed above, she was encouraged to call in the interim with questions or concerns. We will continue to monitor and review for side effects from treatment. Abbi Ventura MD package dye stand loader Division of Oncology Section of Medical Oncology [facility] Hot Die Press Feeder completed by using teextee Direct speaking software, therefore, transcriptionvariances may occur. AGE WORKER documented in this encounter Plan of Treatment Not on file documented as of this encounter Results * CEA (07/04/2022 12:41 PM PACKAGE WORKER) CEA 1.6 <=5.0 ng/mL [facility] Comment: Interpretive Data: Reference Range: Non-Smokers: 0.0 ? 5.0 ng/mL Smokers: 0.0 ? 6.5 ng/mL The Bo CEA assay procedure was used. Results from different manufacturers or methods may not be comparable. Serial testing should be performed using the same method. Current interpretive data was last revised 2021. Blood 07/04/2022 12:4 1 PM PACKAGE WORKER 07/04/2022 1:52 PM PACKAGE WORKER us Abbi Ventura MD LAB BLOOD ORDERABLES Final Resul t [facility] Department [place] [address] documented in this encounter Visit Diagnoses Diagnosis [...] 07/04/2022 documented in this encounter Care Teams J2Ee Programmer Relationship Specialty Start Date End Date Dat Benito DO [address] [place] [address] PCP - General Internal Medicine 09/28/21 Kianna Bunch MD PhD [address] [place] [address] Surgeon Surgical Oncology 11/22/17 Santiago Gilbert MD [address] [place] [address] Heavy Threader Gastroenterology 11/22/17 Abbi Ventura MD [address] [place] [address] [address] [place] [address] Medical Oncologist/Day Care Worker Medical Oncology 12/03/18 Montse Thompson MD [address] [facility] [address] [place] [address] Consulting Physician Gynecologic Oncology 12/03/18 Lela Hardy MD PhD [address] [facility] [address] [place] [address] Radiation Oncologist Radiation Oncology 12/23/18 Trena Obando MD [address] [place] [address] Consulting Physician Neurology 09/18/21 documented as of this encounter
--- OUTSIDE RECORDS SUMMARY | 2024-04-24 14:46 | XMS_ITS | Encounter Summary ---
Author Organization [facility] Address [address] [facility] [address] [place] [address] Phone Care Team Providers Care Boat Tender Name Role Phone Aft, Tony Machado MD PhD Unavailable [phone] Santiago Gilbert MD Unavailable [phone] Birdie Ventura MD Unavailable Montse Thompson MD Unavailable [phone] Lela Hardy MD PhD Unavailable [phone] Trena Obando MD Unavailable [phone] Dat Benito DO Primary Care Provider [phone] Reason for Visit * Reason Comments Follow-up Encounter Details Date Type Department Care Team (Late st Contact Info) Description 10/29/2022 4:40 PM CDT Office Visit [facility] Obstetrics and Gynecology [address] [facility] [address] 13th [place] [address] [place] [address] Montse Thompson MD [address] [facility] [phone] [place] [address] BRCA2 gene mutation positive in [...] on file Legal Sex Female 1:06 AM BREAD DISTRIBUTOR Gender Identity Not on file Sexual Orientation [...] Oncology Clinical Research Division of Gynecologic Oncology [facility] [id number] cc: BIRDIE VENTURA M.D. / TONY GAY [...] x 2 months LEEP (during clinic hours) PICKED EDGE SEWING MACHINE OPERATOR Ultrasound MRI Mammogram PET Initiate Survivoship Care Plan Surveillance Labs (CBC w/ Diff, CMP, Magnesium, CA125) Labwork: ca125 X in a year documented in this encounter Plan of Treatment Not on file documented as of this encounter Visit Diagnoses Diagnosis BRCA2 gene mutation positive in female- Primary Pelvic pressure in female documented in this encounter Care Teams Boat Tender Relationship Specialty Start Date End Date Dat Benito DO [address] [place] [address] PCP - General Internal Medicine 09/28/21 AftTony MD PhD [address] [place] [address] Surgeon Surgical Oncology 11/22/17 Sanitago Gilbert MD [address] [place] [address] Biomedical Manager Gastroenterology 11/22/17 Birdie Ventura MD [address] [facility] [address] [place] [address] Medical Oncologist/Global Chief Creative Officer Medical Oncology 12/03/18 Montse Thompson MD [address] [facility] [address] [place] [address] Consulting Physician Gynecologic Oncology 12/03/18 Lela Hardy MD PhD [address] [facility] [address] [place] [address] Radiation Oncologist Radiation Oncology 12/23/18 Trena Obando MD [address] [place] [address] Consulting Physician Neurology 09/18/21 documented as of this encounter
--- OUTSIDE RECORDS SUMMARY | 2024-04-24 14:47 | XMS_ITS | Encounter Summary ---
Author Organization [facility] Address [address] [place] [address] Care Team Providers Care Product Marketing Director Name Role Phone Aft, Kianna Machado MD PhD Unavailable [phone] Santiago Gilbert MD Unavailable [phone] Dmitry Sanderson MD Unavailable [phone] Abbi Ventura MD Unavailable Montse Thompson MD Unavailable [phone] Lela Hardy MD PhD Unavailable [phone] Trena Obando MD Unavailable Dat Benito DO Primary Care Provider [phone] Reason for Referral * MRI/CAT/PET Scan (Routine) - Closed Specialty Diagnoses / Procedures Referred By Contac t Referred To Contact Radiology Diagnoses Malignant neoplasm of upper-inner quadrant of left breast in female, estrogen receptor negative (HCC) Procedures MRI Guided Breast Biopsy Right Abbi Ventura MD [address] [facility] [address] [place] [address] Phone: tel: fax: [address] [address] Referral ID Status Reason Start Date Expiration Date Visits Re quested Visits Authorized [id number] Closed 03/23/2022 04/22/2023 1 1 OPERATOR Reason for Visit * MRI/CAT/PET Scan (Routine) - Closed Specialty Diagnoses / Procedures Referred By Vijaya simpson Referred To Contact Radiology Diagnoses Malignant neoplasm of upper-inner quadrant of left breast in female, estrogen receptor negative (HCC) Procedures MRI Guided Breast Biopsy Right Abbi Ventura MD [address] [facility] [address] [place] [address] Phone: tel: fax: [address] [place] [address] Referral ID Status Reason Start Date Expiration Date Visits Re quested Visits Authorized [id number] Closed 03/23/2022 04/22/2023 1 1 Encounter Details Date Type Department Care Team (Latest Contact Info) Description 04/13/2022 7:21 AM BELT OPERATOR - 04/13/2022 9:04 AM BELT OPERATOR Hospital Encounter [facility] [address] [place] [address] Malignant neoplasm of upper-inner quadrant of left [...] Comments SURGICAL PATHOLOGY Routine 04/13/2022 8:21 AM BELT OPERATOR Malignant neoplasm of upper-inner quadrant of left breast in female, 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) (HCC) MRI GUIDED BREAST BIOPSY RIGHT Schedule Routine, Read Routine (OP Routine) 04/13/2022 8:06 AM BELT OPERATOR Malignant neoplasm of upper-inner quadrant of left breast in female, 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) (HCC) documented in this encounter Results * Surgical pathology (04/13/2022 8:21 AM BELT OPERATOR) Tissue (Breast biopsy, needle core) 04/13/2022 8:21 AM BELT OPERATOR Comment:MRI Guided Breast Bi opsy Right - BI-RADS 4B - New upper outer right breast clumped nonmass enhancement measuring 1.0 cm - moderate suspicion Narrative PATHOLOGY [facility] - 04/16/2022 2:54 PM BELT OPERATOR EPIC results best viewed via link to PDF [facility] [place] [address] Note to Patients: This report may contain [...] ??F : ??[id number] (Age: 66) Address: [address] [place], [place] ??[address] Hospital #: ??[id number] Taken:04/13/2022 Received:04/13/2022 Reported: 04/16/2022 Patient Type: [facility] [...] s identifiers and MRI guided breast biopsy [id number] are 19 yellow and white cores [...] Notes ? Estrogen receptor (ER), progesterone receptor (OH), and HER2 were evaluated by immunohistochemistry (IHC) ? by morphometric analysis in routine formalin-fixed paraffin-embedded tissue using a proprietary polymer- ? based detection system and instrumentation by [employer] per band splitter's ? recommendation. ? The IHC results for ER (antibody SP1) and OH (antibody 1E2) were quantified and interpreted (positive vs ? negative) using the Levi score (total score range = 0 to 8; positive >2) (see: Mod Pathol 11:155, 1997; J Clin ? Oncol 17:1474, 1998; Mod Pathol 17:1545, 2003; Arch Pathol Lab Med 144:545, 2020). ? Pathway Her2 is a trademark of [employer] The IHC results for Pathway Her2 [...] Surgical Pathology and Flow Cytometry Departments at [facility] as part of an ongoing quality tester program and in compliance with federally mandated [...] Surgical Pathology and Flow Cytometry Departments of [facility]. ??It has not been cleared or approved by the U. S. Food and Drug Administration. IMAGES AND SCANNED DOCUMENTS, IF INCLUDED, ONLY VIEWABLE IN PDF VERSION OF REPORT Abbi Ventura MD LAB PATHOLOGY ORDERABLES Final R esult PATHOLOGY [facility] 3rd Floor [place], [place] [phone] * MRI Guided Breast Biopsy Right (04/13/2022 8:06 AM BELT OPERATOR) Anatomical Region Laterality Modality Breast Right Magnetic Resonan ce 04/13/2022 1:22 PM BELT OPERATOR Addenda Addendum by Nina Lawrence MD on 04/18/2022 5:00 PM BELT OPERATOR This addendum is being issued to add [...] to see Dr. Abbi Ventura on 04/26/2022. OPERATOR ADDENDUM: Pathology from biopsy of the right [...] Nina Lawrence M.D. Impressions 04/13/2022 1:37 PM BELT OPERATOR Successful MRI-guided vacuum-assisted core needle biopsy of [...] Nina Lawrence M.D. Narrative 04/13/2022 1:37 PM BELT OPERATOR EXAMINATION: RIGHT BREAST VACUUM-ASSISTED CORE BIOPSY UTILIZING [...] participated in the procedure. ??Dr. Dale Davis (residential carpenter) was present and participated in the procedure. [...] participated in the procedure. Dr. Dale Davis (residential carpenter) was present and participated in the procedure. [...] by: Nina Lawrence M.D. Abbi Ventura MD [facility] [place] PROCEDURES Edited Result - Final documented [...] 1 dose Contrast Given 04/13/2022 8:07 AM BELT OPERATOR 20 mL lidocaine (XYLOCAINE) 10 mg/mL (1 %) injection As needed, Starting on Sat04/13/22 at 0817, Intra-Procedure (IR), Indications: Administration of Local AnesthesiaIndications:Admin istration of Local Anesthesia Given 04/13/2022 8:17 AM BELT OPERATOR 5 mL lidocaine-EPINEPHrine (XYLOCAINE with EPI) 2 %-1:100,000 injection As needed, Starting on Sat04/13/22 at 0818, Intra-Op, Indications: Administration of Local AnesthesiaIndications:Admin istration of Local Anesthesia Given 04/13/2022 8:18 AM BELT OPERATOR 20 mL Right Breast documented in this encounter Care Teams Product Marketing Director Relationship Specialty Start Date End Date Dat Benito DO [address] [place] [address] PCP - General Internal Medicine 09/28/21 Aft, Kianna Machado MD PhD [address] [place] [address] Surgeon Surgical Oncology 11/22/17 Santiago Gilbert MD [address] [place] [address] Department Manager Gastroenterology 11/22/17 Dmitry Sanderson MD [address] [place] [address] Referring Physician Colon and Rectal Surgery 12/03/1805/06 Abbi Ventura MD [address] [place] [address] [address] [place] [address] Medical Oncologist/Assistant Plant Controller Medical Oncology 12/03/18 Montse Thompson MD [address] [facility] [address] [place] [address] Consulting Physician Gynecologic Oncology 12/03/18 Lela Hardy MD PhD [address] [facility] [address] [place], [place] [address] Radiation Oncologist Radiation Oncology 12/23/18 Trena Obando MD [address] [place], [place] [address] Consulting Physician Neurology 09/18/21 documented as of this encounter
--- OUTSIDE RECORDS SUMMARY | 2024-04-24 14:47 | XMS_ITS | Encounter Summary ---
Author Organization [facility] Address [address] [place] [address] Phone Care Team Providers Care Pyrometer Mechanic Name Role Phone Aft, Kianna Machado MD PhD Unavailable Santiago Gilbert MD Unavailable [phone] Dmitry Sanderson MD Unavailable [phone] Abbi Ventura MD Unavailable Montse Thompson MD Unavailable [phone] Lela Hardy MD PhD Unavailable [phone] Trena Obando MD Unavailable [phone] Dat Benito DO Primary Care Provider [phone] Encounter Details Date Type Department Care Team (Late st Contact Info) Description 04/26/2022 3:30 PM DESKTOP SUPPORT MANAGER Telemedicine [facility] Oncology [address] [place] [address] Abbi Ventura MD [address] [facility] [address] [place] [address] Malignant neoplasm of right breast [...] on file Legal Sex Female 1:06 AM DESKTOP SUPPORT MANAGER Gender Identity Not on file Sexual Orientation Not on file documented as of this encounter Progress Notes * Abbi Ventura MD - 04/26/2022 3:30 PM CST Medical Oncology Telehealth Visit This was a telemedicine visit with Aleah Gerber alone which took place via Telephone Inability orlack of knowledge to set up audio/visual visit. During the visit, I was located at [facility] and the patient was located at home. The session started at 2:55 pm and ended at 3:10 pm. The patient has been informed that the visit may not be secure and acknowledged the information. I have explained the option of participating in a telephone or video visit during the [facility] emergency to the patient. After being given an opportunity to ask questions about and discuss this type of visit, the patient verbally consented to proceeding with the telephone / video visit. The patient understands that this service replaces an office visit and they may be billed and/or responsible for any applicable copayments. Patient Identifying Data: lAeah Gerber is a 66 y.o. female seen [...] ~ 1.4 cm, Grade 3, ER 0, NM 0, HER-2 IHC 0. Partial mastectomy and [...] participated in the procedure. Dr. Dale Davis (president of the [place]) was present and participated in the procedure. [...] participated in the procedure. Dr. Dale Davis (president of the [place]) was present and participated in the procedure. [...] it. Electronically signed by: Nina Lawrence M.D. 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 Abbi Ventura MD heel wheeler Division of Oncology Section of Medical Oncology [facility] Professional completed by using M*Modal Fluency Direct speaking software, therefore, transcriptionvariances may occur. TOP SUPPORT MANAGER TOP SUPPORT MANAGER documented in this encounter Plan of [...] 022 documented in this encounter Care Teams Pyrometer Mechanic Relationship Specialty Start Date End Date Dat Benito DO [address] [place] [address] PCP - General Internal Medicine 09/28/21 Aft, Kianna Machado MD PhD [address] [place] [address] Surgeon Surgical Oncology 11/22/17 Santiago Gilbert MD [address] [place] [address] Projection Printer Gastroenterology 11/22/17 Dmitry Sanderson MD [address] [place] [address] Referring Physician Colon and Rectal Surgery 12/03/1805/06 Abbi Ventura MD [address] [place] [address] [address] [place] [address] Medical Oncologist/Vp Compliance Medical Oncology 12/03/18 Montse Thompson MD [address] [place] [address] [address] [place] [address] Consulting Physician Gynecologic Oncology 12/03/18 Lela Hardy MD PhD [address] [facility] [address] [place] [address] Radiation Oncologist Radiation Oncology 12/23/18 Trena Obando MD [address] [place] [address] Consulting Physician Neurology 09/18/21 documented as of this encounter
--- OUTSIDE RECORDS SUMMARY | 2024-04-24 14:47 | XMS_ITS | Encounter Summary ---
Author Organization [facility] Address [address] [place] [address] Phone Care Team Providers Care Parimutuel Ticket Cashier Name Role Phone AftKianna MD PhD Unavailable [phone] Santiago Gilbert MD Unavailable [phone] Dmitry Sanderson MD Unavailable [phone] Abbi Ventura MD Unavailable Montse Thompson MD Unavailable [phone] Lela Hardy MD PhD Unavailable [phone] Trena Obando MD Unavailable [phone] Dat Benito DO Primary Care Provider [phone] Reason for Visit * Reason Comments Consult Encounter Details Date Type Department Care Team (Late st Contact Info) Description 05/09/2022 3:00 PM PRIME BROKER Office Visit [facility] Surgery [address] [facility] Advanced [address] 5th [place] [address] [place] [address] Kianna Bunch MD PhD [address] [place] [address] History of breast cancer (Primary Dx) Social [...] on file Legal Sex Female 1:06 AM PRIME BROKER Gender Identity Not on file Sexual Orientation Not on file documented as of this encounter Last Filed Vital Signs Vital Sign Reading Time Taken Comments Blood Pressure - - Pulse - - Temperature - - Respiratory Rate - - Oxygen Saturation - - Inhaled Oxygen Concentration - - Weight 108.9 kg (240 lb) 05/09/2022 2:43 PM PRIME BROKER Height 175.3 cm (5' 9 ) 05/09/2022 2:43 PM PRIME BROKER Body Mass Index 35.44 05/09/2022 2:43 PM PRIME BROKER documented in this encounter Progress Notes * [...] positive and VUS in BRIP1 and NBN. [employer] My risk showed no mutation in [facility] [...] cancer (CMS/HCC) (HCC) (2017), Colon cancer (CMS/HCC) ([facility]), Colon cancer (CMS/HCC) (HCC) (2017), Colon polyps, COPD (chronic obstructive pulmonary disease) (CMS/HCC) ([facility]), Depression, DVT (deep vein thrombosis) in [...] history of Acute respiratory failure requiring reintubation ([facility]/HCC) ([facility]), Atypical ductal hyperplasia of breast, Awareness under anesthesia, BRCA1 negative, BRCA1 positive,BRCA2 negative, Breast cyst, Breast injury, Delayed emergence from general anesthesia, Diabetes mellitus type I (HCC), Ductal hyperplasia of breast, Endometrial cancer (CMS/HCC) ([facility]), Fibrocystic breast, Hard to intubate, Lobular carcinoma in situ of breast, Malignant hyperthermia, Motion sickness, Ovarian cancer (HCC), Pneumothorax, PONV (postoperative nausea and vomiting), Postoperative delirium, Pseudocholinesterase deficiency, Smoking, or Thyroid cancer (CMS/HCC) ([facility]). PAST SURGICAL HISTORY: She has a [...] plan outlined above. Kianna Bunch MD, PhD E BROKER documented in this encounter Plan of Treatment [...] documented as of this encounter Care Teams Parimutuel Ticket Cashier Relationship Specialty Start Date End Date Dat Benito DO [address] [place] [address] PCP - General Internal Medicine 09/28/21 Kianna Bunch MD PhD [address] [place] [address] Surgeon Surgical Oncology 11/22/17 Santiago Gilbert MD [address] [place] [address] Employment Educational Coord Gastroenterology 11/22/17 Dmitry Sanderson MD [address] [place], [place] [address] Referring Physician Colon and Rectal Surgery 12/03/1805/06 Abbi Ventura MD [address] [facility] [address] [place] [address] Medical Oncologist/Director Of Perioperative Services Medical Oncology 12/03/18 Montse Thompson MD [address] [facility] [address] [place] [address] Consulting Physician Gynecologic Oncology 12/03/18 Lela Hardy MD PhD [address] [facility] [address] [place] [address] Radiation Oncologist Radiation Oncology 12/23/18 Trena Obando MD [address] [place], [place] [address] Consulting Physician Neurology 09/18/21 documented as of this encounter
--- OUTSIDE RECORDS SUMMARY | 2024-04-24 14:47 | XMS_ITS | Encounter Summary ---
Author Organization [facility] Healthcare Address [address] [place] [address] Care Team Providers Care Real Estate Leasing Agent Name Role Phone Aft, Kianna Machado MD PhD Unavailable [phone] Santiago Gilbert MD Unavailable [phone] Abbi Ventura MD Unavailable Montse Thompson MD Unavailable [phone] Lela Hardy MD PhD Unavailable [phone] Trena Obando MD Unavailable [phone] Dat Benito DO Primary Care Provider [phone] Reason for Visit * Auth/Cert Specialty Diagnoses / Procedures Referred By Contac t Referred To Contact Diagnoses Malignant neoplasm of upper-inner quadrant of left breast in female, 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, 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) (HCC) [C50.212, Z17.1] Procedures IA BX/EXC LYMPH NODE OPEN SUPERFICIAL IA MASTECTOMY SIMPLE COMPLETE IA INTRAOP SENTINEL LYMPH NODE ID W/DYE INJECTION MASTECTOMY BILATERAL BIOPSY SENTINEL LYMPH NODE with magtrace Referral ID Status Reason Start Date Expiration Date Visits Re quested Visits Authorized [id number] 1 1 Encounter Details Date Type Department Care Team (Late st Contact Info) Description 05/22/2022 7:30 AM MANUFACTURING SALES REPRESENTATIVE - 05/22/2022 10:00 AM MANUFACTURING SALES REPRESENTATIVE Surgery [facility] Operating [facility] [address] [place] [id number] Kianna Bunch MD PhD [address] [place] [address] MASTECTOMY BILATERAL Surgery Details Date/Time Status Location [...] Shady Ritchie MD Resident - [facility] Special Needs Senit[employer] [...] on file Legal Sex Female 1:06 AM MANUFACTURING SALES REPRESENTATIVE Gender Identity Not on file Sexual Orientation Not on file documented as of this encounter Last Filed Vital Signs Vital Sign Reading Time Taken Comments Blood Pressure 148/64 05/22/2022 6:18 AM MANUFACTURING SALES REPRESENTATIVE Pulse 64 05/22/2022 6:18 AM MANUFACTURING SALES REPRESENTATIVE Temperature 36.1 ??C (97 ??F) 05/22/2022 6:18 AM MANUFACTURING SALES REPRESENTATIVE Respiratory Rate 22 05/22/2022 6:18 AM MANUFACTURING SALES REPRESENTATIVE Oxygen Saturation 97% 05/22/2022 6:18 AM MANUFACTURING SALES REPRESENTATIVE Inhaled Oxygen Concentration - - Weight 108.9 kg (240 lb) 05/11/2022 9:55 AM MANUFACTURING SALES REPRESENTATIVE Height 175.3 cm (5' 9 ) 05/11/2022 9:55 AM MANUFACTURING SALES REPRESENTATIVE Body Mass Index 35.44 05/22/2022 1:13 PM MANUFACTURING SALES REPRESENTATIVE documented in this encounter Discharge Summaries * Chely Turner, LUMBER PULLER - 05/23/2022 10:00 AM CST Inpatient Discharge Summary BRIEF OVERVIEW Admitting Provider: Kianna Bunch MD PhD Discharge Provider: No att. providers found Primary Care Physician at Discharge: Dat Benito DO [phone] Admission Date: 05/22/2022 Discharge Date: 05/23/2022 Primary Discharge Diagnosis: Breast cacner Secondary Discharge Diagnosis: Principal Problem: Malignant neoplasm of upper-inner quadrant of left breast in female, 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) (HCC) Resolved Problems: No resolved hospital problems. DETAILS OF HOSPITAL STAY Presenting Problem/History of Present Illness: Malignant neoplasm of upper-inner quadrant of left breast in female, 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) (HCC) Aleah Gebrer is a 66 y.o. woman who was [...] MOB2 [facility] Pulmonary 06/13/2022 12:30 PM Abbi eVntura MD ONC [facility] Oncology 08/16/2022 11:30 AM [facility] SCCT1 [facility] SC CT [facility] IMG 08/16/2022 1:00 PM LAB SC ONC ONC LAB [facility] ONC LAB 08/16/2022 1:30 PM Abbi Ventura MD ONC [facility] Oncology 09/24/2022 2:00 PM Montse Thompson MD ONC [facility] 13C OB Cosigned by Kianna Bunch MD PhD at 05/24/2022 7:07 AM MANUFACTURING SALES REPRESENTATIVE FACTURING SALES REPRESENTATIVE FACTURING SALES REPRESENTATIVE documented in this encounter Medications at Time [...] discharge needs arise, please contact the covering telephonic case manager. FACTURING SALES REPRESENTATIVE * Sherry Mireles RN - 05/23/2022 10:29 [...] arranged?: No (05/23/22 1028) Health Insurance Coverage: [employer] Prescription Coverage: yes Pharmacy: [id number] [place], [place] - [address] [facility] [address] [employer] [address] Primary Care Provider: Dat Benito DO Prior to Admission: Primary Caregiver: Self Support System: Children Support system contact info (name, phone, availablity): amanda Werner [phone] Home Care Services: No Durable Medical Equipment: [...] Collaboration with patient, MD, direct care nurse, County Supervisor, and other members of the health care team to assure needed interventions completed. 2. Return patient to optimal level of self-care post discharge. 3. Trench Digging Machine Operator will follow for Discharge Planning - interventions [...] with the aftercare plan. Sherry Mireles RN FACTURING SALES REPRESENTATIVE * Aracelis Murdock, OT - 05/23/2022 8:35 [...] baseline. 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 Will perform all ADLs with IND using AE/adaptive device PRN. For questions, please review the treatment team and contact the occupational therapist currently assigned to this patient. If an occupational therapist is not assigned to this patient, please call [phone]. FACTURING SALES REPRESENTATIVE * Cem Rae MD - 05/23/2022 6:38 AM CST General Surgery Daily Progress Subjective Chief complaint of breast cancer post op day- 0 from MASTECTOMY BILATERAL (B), BIOPSY SENTINEL LYMPH NODE with magtrace (R) Interval History: No acute events overnight. Pain well-controlled, anticipate discharge home today. Current Facility-Administered Medications: acetaminophen (TYLENOL) tablet 1,000 mg, 1,000 mg, oral, Q6H ARIC, Chely Turner, LUMBER PULLER, 1,000 mg at 05/23/22 0060 albuterol HFA (PROVENTIL HFA,VENTOLIN HFA,PROAIR HFA) 90 [...] mg, intramuscular, Q30 Min PRN, Chely Turner, LUMBER PULLER insulin lispro (HumaLOG, ADMELOG) 100 unit/mL injection 0-4 Units, 0-4 Units, subcutaneous, Nightly, Chely Turner, LUMBER PULLER, 2 Units at 05/22/222058 insulin lispro (HumaLOG, ADMELOG) 100 unit/mL injection 0-5 Units, 0-5 Units, subcutaneous, TID with meals, Chely Turner, LUMBER PULLER, 1 Units at 05/22/221743 levothyroxine (SYNTHROID) tablet [...] Machado MD PhD at 05/23/2022 1:35 PM MANUFACTURING SALES REPRESENTATIVE FACTURING SALES REPRESENTATIVE FACTURING SALES REPRESENTATIVE * Chely Turner NP - 05/22/2022 2:23 [...] 1,000 mg, oral, Q6H ARIC, Chely Turner, LUMBER PULLER, 1,000 mg at 05/22/22 1319 albuterol HFA [...] 1 puff, inhalation, Daily (RT), Chely Turner, KMA glucagon injection 1 mg, 1 mg, intramuscular, [...] Bunch MD PhD at 05/22/2022 4:23 PM MANUFACTURING SALES REPRESENTATIVE FACTURING SALES REPRESENTATIVE FACTURING SALES REPRESENTATIVE documented in this encounter H&P Notes * Aft, Kianna L., MD PhD - 05/22/2022 6:53 AM CST I have reviewed the H&P, examined the patient, and endorse the findings as written. Plan of Care : Based on the above findings, I consider Aleah Gerber to be an acceptable risk for : Procedure(s): MASTECTOMY BILATERAL BIOPSY SENTINEL LYMPH NODE with magtrace FACTURING SALES REPRESENTATIVE Source Note - Kianna Bunch MD PhD - 05/09/2022 3:00 PM MANUFACTURING SALES REPRESENTATIVE PATIENT NAME: Aleah Gerber DATE OF : [...] polyps, COPD (chronic obstructive pulmonary disease) (CMS/HCC) ([facility]), Depression, DVT (deep vein thrombosis) [...] of Acute respiratory failure requiring reintubation (CMS/HCC) ([facility]), Atypical ductal hyperplasia of breast, Awareness under anesthesia, BRCA1 negative, BRCA1 positive,BRCA2 negative, Breast cyst, Breast injury, Delayed emergence from general anesthesia, Diabetes mellitus type I (HCC), Ductal hyperplasia of breast, Endometrial cancer (CMS/HCC) ([facility]), Fibrocystic breast, Hard to intubate, Lobular carcinoma in situ of breast, Malignant hyperthermia, Motion sickness, Ovarian cancer (HCC), Pneumothorax, PONV (postoperative nausea and vomiting), Postoperative delirium, Pseudocholinesterase deficiency, Smoking, or Thyroid cancer (CMS/HCC) ([facility]). PAST SURGICAL HISTORY: She has [...] plan outlined above. Kianna Bunch MD, PhD FACTURING SALES REPRESENTATIVE documented in this encounter Miscellaneous Notes * [...] today and drains teaching Summary: in progress FACTURING SALES REPRESENTATIVE * Plan of Care - Beck Lutz RRT - 05/23/2022 8:43 AM CST Pt received tx with no adverse reactions. Demonstrates good technique and understanding. Will transition to nurse administration per RT protocol. FACTURING SALES REPRESENTATIVE * Plan of Care - Lorrie Davey [...] with RN supervision, monitoring I&O's and vitals. FACTURING SALES REPRESENTATIVE * Perioperative Nursing Note - Jenifer Zazueta RN - 05/22/2022 9:23 AM MANUFACTURING SALES REPRESENTATIVE joao Anaya took left breast fresh specimen at 0923 FACTURING SALES REPRESENTATIVE * Perioperative Nursing Note - Jenifer Zazueta RN - 05/22/2022 9:07 AM MANUFACTURING SALES REPRESENTATIVE joao Anaya took fresh right breast specimen at 0907 FACTURING SALES REPRESENTATIVE * Op Note - Kianna Bunch MD [...] the entire procedure (including opening and closing). FACTURING SALES REPRESENTATIVE * Pre-Procedure Instructions - Sofie Avendano NP - 05/11/2022 12:59 PM MANUFACTURING SALES REPRESENTATIVE [facility] CPAP Clinic Location: [facility] The night before your surgery: * [...] going to be admitted after surgery at [facility], COVID testing may be performed on the day of surgery, even if you are up to date on your COVID-19 vaccine. * If having surgery at [facility], you may want to bring a credit card if you want to use our Mobile Pharmacy for your discharge medications. Mobile pharmacy is not available at [facility], the [facility], or the [facility]. Outpatient Surgery: may stay 1 [...] with COVID-19. You test positive for COVID-19. FACTURING SALES REPRESENTATIVE * Perioperative Nursing Note - Mirella Gentile RN - 05/11/2022 10:01 AM MANUFACTURING SALES REPRESENTATIVE [facility] Preoperative Assessment [facility] Planning Perioperative Nursing Note Telephone Preoperative Evaluation ([facility]) - TELEPHONE ONLY, NO PHYSICAL EXAM [...] Other - see comments [employer] [facility] [id number] Powerport Clearvue Airguard 8fr 1 Lumen Lightweight Intermediate Latex Free - [id number] - Implanted (Right) Chest Wall Inventory item: [facility] Powerport Clearvue Airguard 8fr 1 Lumen Lightweight Intermediate Latex Free [id number] Model/Cat number: [id number] Addiction Social Worker: [employer] Lot number: [id number] Size: 8F Device identifier: [id number] Device identifier type: GS1 As of 01/14/2018 [...] expects to be discharged to:: Private residence ([employer]. [employer] President [employer] (Ex ) and Caregiver: Daughter) ODD JOBS DAY WORKER NO ADDITIONAL COMMENTS/ FOLLOW UP FACTURING SALES REPRESENTATIVE * Pre-Procedure Instructions - Mirella Gentile RN - 05/11/2022 10:00 AM MANUFACTURING SALES REPRESENTATIVE CENTER FOR PREOPERATIVE ASSESSMENT AND PLANNING (CPAP) [...] your insurance card, a photo ID (example: [employer]. Vice President [employer] (Ex )'s License) and a method of payment for [...] Chart. If you are having surgery at [facility], please arrive on the day [...] Pathway to Excellent Care by the followinglink: [email or web address] How To Prepare Your [...] Remove nail coverings, artificial nails and nail yakut. The Morning of Surgery: Take a shower [...] questions, please call the CPAP Staff at [phone], Saturday-Saturday 8am-4:30pm. All patients should read the below section: All visitors/patients are being asked to wear a clean face mask when entering the hospital. COVID 19 Updates & Visitor Policy: Please access [email or web address] for the most updated information. Information on [facility]: Please view [email or web address] (Patient & Visitor Information) for additional details regarding Advanced Directive forms, AWARE, directions, parking information, lodging, Internet access, dining and more. Information on [facility] or [facility] ([facility]): Please view [email or web address] (Patient and Visitor Information) for parking/directions and more. For MyChart information, to activate account or password recovery, please go to [email or web address] or call [phone] (toll-free: [phone]). Information for Suicide Prevention: National Suicide Prevention Lifeline (9-942- 634-OVXS (7860)). Surgery Times: For patients having surgery @ [facility], [facility], [facility] or [facility] ([facility]), if your surgeon's office has not notified you of your surgery time by NOON THE BUSINESS DAY BEFORE your surgery, please call [phone] and ask for your surgeon's office Dr. Bunch. FACTURING SALES REPRESENTATIVE documented in this encounter Plan of Treatment Not on file documented as of this encounter Procedures Procedure Name Priority Date/Time Associated Diagnosis Comments POCT GLUCOSE DEVICE Routine 05/23/2022 7:28 AM MANUFACTURING SALES REPRESENTATIVE POCT GLUCOSE DEVICE Routine 05/22/2022 8:44 PM MANUFACTURING SALES REPRESENTATIVE POCT GLUCOSE DEVICE Routine 05/22/2022 5:36 PM MANUFACTURING SALES REPRESENTATIVE POCT GLUCOSE DEVICE Routine 05/22/2022 11:07 AM MANUFACTURING SALES REPRESENTATIVE SURGICAL PATHOLOGY Routine 05/22/2022 8: 52 AM MANUFACTURING SALES REPRESENTATIVE Malignant neoplasm of upper-inner quadrant of left breast in female, 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) (HCC) BIOPSY SENTINEL LYMPH NODE 05/22/2022 7:52 AM MANUFACTURING SALES REPRESENTATIVE Malignant neoplasm of upper-inner quadrant of left breast in female, 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) (HCC) Special Needs Senitmag needed day of surgery MASTECTOMY BILATERAL 05/22/2022 7:52 AM MANUFACTURING SALES REPRESENTATIVE Malignant neoplasm of upper-inner quadrant of left breast in female, 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) (HCC) Special Needs Senitmag needed day of surgery POCT GLUCOSE DEVICE Routine 05/22/2022 6:40 AM MANUFACTURING SALES REPRESENTATIVE documented in this encounter Results * POCT glucose (05/23/2022 7:28 AM MANUFACTURING SALES REPRESENTATIVE) Glucose, POC 179 70 - 199 mg/dL [facility] Blood 05/23/2022 7:28 AM MANUFACTURING SALES REPRESENTATIVE 05/23/2022 7:28 AM MANUFACTURING SALES REPRESENTATIVE us Kianna Bunch MD PhD LAB POCT ORDERABLES - ROSEMARY CE Final Result Performing Organization Address City/[facility]/ZIP Co de Phone Number [facility] [place] [employer] [place] [address] * (ABNORMAL) POCT glucose (05/22/2022 8:44 PM MANUFACTURING SALES REPRESENTATIVE) Glucose, POC 256(H) 70 - 199 mg/dL [facility] Blood 05/22/2022 8:44 PM MANUFACTURING SALES REPRESENTATIVE 05/22/2022 8:44 PM MANUFACTURING SALES REPRESENTATIVE us Kianna Bunch MD PhD LAB POCT ORDERABLES - ROSEMARY CE Final Result Performing Organization Address [facility] Co de Phone Number [facility] [place] [employer] [place] [address] * POCT glucose (05/22/2022 5:36 PM MANUFACTURING SALES REPRESENTATIVE) Glucose, POC 196 70 - 199 mg/dL [facility] Blood 05/22/2022 5:36 PM MANUFACTURING SALES REPRESENTATIVE 05/22/2022 5:36 PM MANUFACTURING SALES REPRESENTATIVE us Kianna Bunch MD PhD LAB POCT ORDERABLES - ROSEMARY CE Final Result Performing Organization Address City/[facility]/ZIP Co de Phone Number [facility] [employer] [employer] [place] [address] * POCT glucose (05/22/2022 11:07 AM MANUFACTURING SALES REPRESENTATIVE) Glucose, POC 199 70 - 199 mg/dL [facility] Blood 05/22/2022 11:0 7 AM MANUFACTURING SALES REPRESENTATIVE 05/22/2022 11:07 AM MANUFACTURING SALES REPRESENTATIVE us Kianna Bunch MD PhD LAB POCT ORDERABLES - ROSEMARY CE Final Result Performing Organization Address City/[facility]/ZIP Co de Phone Number [facility] Department [place] [address] * Surgical pathology (05/22/2022 8:52 AM MANUFACTURING SALES REPRESENTATIVE) Tissue (Lymph node, sentinel breast) 05/22/2022 8:52 AM MANUFACTURING SALES REPRESENTATIVE Tissue (Breast, simple mastectomy) 05/22/2022 8:57 AM MANUFACTURING SALES REPRESENTATIVE Tissue (Breast, simple mastectomy) 05/22/2022 9:14 AM MANUFACTURING SALES REPRESENTATIVE Narrative PATHOLOGY [facility] - 05/30/2022 9:38 AM MANUFACTURING SALES REPRESENTATIVE EPIC results best viewed via link to PDF [facility] [place] [address] Note to Patients: This report may contain [...] Gender: ??F : ??1955 (Age: 66) Address: ??[address] [place] [address] ??[id number] Hospital #: ??[id number] Taken:05/22/2022 Received:05/22/2022 Reported: 05/30/2022 Patient Type: [facility] OP In Bed ?? Service: Oncology Location: [place] [address] Physician(s): ??Hortencia Warren M.D. David Yablonsky, DO [...] the above cited diagnosis. The prior biopsy [id number] has been reviewed. In part B, the [...] sparing (simple mastectomy) ? Lymph node sampling: ?[place] lymph node(s) ? Specimen laterality: ?Right ? [...] involvement: ?All lymph nodes are negative ? [place] node evaluation: ?H&E, multiple levels ? Response [...] ?? The Mammaprint test was performed by [facility], [place] [address]. The performance characteristics of some immunohistochemical stains, fluorescence in-situ hybridization tests and immunophenotyping by flow cytometry cited in this report (if any) were determined by the Surgical Pathology and Flow Cytometry Departments at [facility] as part of an ongoing quality auditor [...] Surgical Pathology and Flow Cytometry Departments of [facility]. ??It has not been cleared or approved by the U. S. Food and Drug Administration. IMAGES AND SCANNED DOCUMENTS, IF INCLUDED, ONLY VIEWABLE IN PDF VERSION OF REPORT Kianna Bunch MD PhD LAB PATHOLOGY ORDERABLES F inal Result PATHOLOGY [facility] 3rd Floor [place], [place] [phone] * POCT glucose (05/22/2022 6:40 AM MANUFACTURING SALES REPRESENTATIVE) Glucose, POC 141 70 - 199 mg/dL [facility] Blood 05/22/2022 6:40 AM MANUFACTURING SALES REPRESENTATIVE 05/22/2022 6:40 AM MANUFACTURING SALES REPRESENTATIVE Kianna Bunch MD PhD LAB POCT ORDERABLES - ROSEMARY CE Final Result Performing Organization Address [facility] Co de Phone Number [facility] Department [place] [address] documented in this encounter Visit Diagnoses Diagnosis [...] AnalgesiaIndications:Pre-Emptiv e Analgesia Given 05/22/2022 6:32 AM MANUFACTURING SALES REPRESENTATIVE 1,000 mg acetaminophen (TYLENOL) tablet 1,000 mg 1,000 mg, oral, Every 6 hours scheduled, First dose (after last modification) on Sat05/22/22 at 1400, Indications: PainIndications:Pain Given 05/23/2022 12:15 PM MANUFACTURING SALES REPRESENTATIVE 1,000 mg Given 05/23/2022 4:59 AM MANUFACTURING SALES REPRESENTATIVE 1,000 mg Given 05/22/2022 7:03 PM MANUFACTURING SALES REPRESENTATIVE 1,000 mg albuterol HFA (PROVENTIL HFA,VENTOLIN HFA,PROAIR HFA) 90 mcg/actuation inhaler 2 puff 2 puff, inhalation, Every 6 hours PRN (certified respiratory therapist), wheezing, Starting on Sat05/22/22 at 1315 amLODIPine (NORVASC) tablet 5 mg 5 mg, oral, Every morning, First dose on Sat05/23/22 at 0900, Indications: hypertensionIndications:hypertension Given 05/23/2022 8:16 AM MANUFACTURING SALES REPRESENTATIVE 5 mg dextrose (D10W) 10% bolus 250 [...] Prophylaxis, MedicalIndications:Prophylaxis, Medical Given 05/23/2022 4:59 AM MANUFACTURING SALES REPRESENTATIVE [address] (CYMBALTA) extended release capsule 60 mg 60 mg, oral, Nightly, First dose on Sat05/22/22 at 2100, Capsule may be opened and contents mixed with applesauce or apple juice ONLY. Do not crush, chew, cut, dissolve, open or otherwise manipulate tablet/capsule., Indications: Neuropathic PainIndications:Neuropathic Pain Given 05/22/2022 8:58 PM MANUFACTURING SALES REPRESENTATIVE 60 mg fluticasone furoate-vilanteroL (BREO ELLIPTA) 200-25 mcg/dose inhaler 1 puff 1 puff, inhalation, Daily (certified respiratory therapist), First dose on Sat05/22/22 at 1400 Given 05/23/2022 8:40 AM MANUFACTURING SALES REPRESENTATIVE 1 puff fluticasone furoate-vilanteroL (BREO ELLIPTA) 200-25 [...] more., Indications: PainIndications:Pain Given 05/22/2022 12:00 PM MANUFACTURING SALES REPRESENTATIVE 0. 2 mg Given 05/22/2022 11:42 AM MANUFACTURING SALES REPRESENTATIVE 0.2 mg Given 05/22/2022 11:31 AM MANUFACTURING SALES REPRESENTATIVE 0.2 mg insulin lispro (HumaLOG, ADMELOG) 100 [...] Diabetes MellitusIndications:Diabetes Mellitus Given 05/22/2022 8:59 PM MANUFACTURING SALES REPRESENTATIVE 2 Units Right Upper Arm insulin lispro [...] Diabetes MellitusIndications:Diabetes Mellitus Given 05/23/2022 8:16 AM MANUFACTURING SALES REPRESENTATIVE 1 Units Left Lower Abdomen Given 05/22/2022 5:44 PM MANUFACTURING SALES REPRESENTATIVE 1 Units Ri ght Lower Abdomen insulin lispro (HumaLOG, ADMELOG) 100 unit/mL injection 3 Units 3 Units, subcutaneous, Once, On Sat05/22/22 at 1145, For 1 dose, Phase I, Indications: HyperglycemiaIndications:Hype rglycemia Given 05/22/2022 11:21 AM MANUFACTURING SALES REPRESENTATIVE 3 Units Left Upper Arm isosulfan blue (LYMPHAZURIN) 1 % injection As needed, Starting on Sat05/22/22 at 0830, Intra-Op Given 05/22/2022 8:30 AM MANUFACTURING SALES REPRESENTATIVE 5 mL Surgical Site Lactated Ringer's (LR) infusion 30 mL/hr, intravenous, Continuous, Starting on Sat05/22/22 at 0630 New Bag 05/22/2022 9:36 AM MANUFACTURING SALES REPRESENTATIVE Rate/Dose Verify 05/22/2022 7:47 AM MANUFACTURING SALES REPRESENTATIVE 30 mL/h r Rate/Dose Change 05/22/2022 7:47 AM MANUFACTURING SALES REPRESENTATIVE 30 mL/h r levothyroxine (SYNTHROID) tablet 75 mcg 75 mcg, oral, Every morning, First dose on Sat05/23/22 at 0900, Administer on an empty stomach, preferably 30 minutes before breakfast. Take 4 hours apart from antacids, iron and calcium products. Separate from tube feeds, if applicable., Indications: hypothyroidismIndications:hypothyroidism Given 05/23/2022 8:16 AM MANUFACTURING SALES REPRESENTATIVE 75 mcg nortriptyline (PAMELOR) capsule 10 mg 10 mg, oral, Nightly, First dose on Sat05/22/22 at 2100, Indications: Postherpetic Neuralgia, and sleepIndications:Postherpetic Neuralgia,and sleep Given 05/22/2022 8:58 PM MANUFACTURING SALES REPRESENTATIVE 10 mg oxyCODONE (ROXICODONE) tablet 5 mg 5 mg, oral, Every 4 hours PRN, 2nd line for pain, Starting on Sat05/22/22 at 1309, May administer 1 hour after 1st line agent for uncontrolled or increasing pain. , Indications: PainIndications:Pain Given 05/23/2022 12:15 PM MANUFACTURING SALES REPRESENTATIVE 5 mg Given 05/23/2022 4:59 AM MANUFACTURING SALES REPRESENTATIVE 5 mg Given 05/22/2022 1:19 PM MANUFACTURING SALES REPRESENTATIVE [address] (PROTONIX) extended release tablet 40 mg 40 mg, oral, Daily, First dose on Sat05/23/22 at 0900, Do not crush, chew, cut, dissolve, open or otherwise manipulate tablet/capsule., Indications: Treatment of Non-Bleeding Gastric DisorderIndications:Treatment of Non-Bleeding Gastric Disorder Given 05/23/2022 8:15 AM MANUFACTURING SALES REPRESENTATIVE 40 mg propranoloL (INDERAL) tablet 40 mg 40 mg, oral, 2 times daily, First dose on Sat05/22/22 at 1345 Given 05/23/2022 4:58 AM MANUFACTURING SALES REPRESENTATIVE 40 mg Given 05/22/2022 4:28 PM MANUFACTURING SALES REPRESENTATIVE 40 mg sodium chloride 0.9% irrigation As needed, Starting on Sat05/22/22 at 0830, Intra-Op Given 05/22/2022 8:30 AM MANUFACTURING SALES REPRESENTATIVE 1,000 mL Surgical Site topiramate (TOPAMAX) tablet 25 mg 25 mg, oral, 3 times daily, First dose on Sat05/22/22 at 1600, Indications: painIndications:pain Given 05/23/2022 8:16 AM MANUFACTURING SALES REPRESENTATIVE 25 mg Given 05/22/2022 8:58 PM MANUFACTURING SALES REPRESENTATIVE 25 mg Given 05/22/2022 4:29 PM MANUFACTURING SALES REPRESENTATIVE 25 mg documented in this encounter Discontinued [...] Recently Administered Medications Times are shown in MANUFACTURING SALES REPRESENTATIVE. Scheduled Medication Order 05/21/2022 05/22/2022 05/23/2022 acetaminophen [...] 1 puff (CANCELED) 1 puff, inhalation, Daily (certified respiratory therapist), First dose on Sat05/22/22 at 1400 1400 (Not Given - Provider: Daisha Grimm, TANK WAGON OPERATOR - Reason: Other - Comment: patient not [...] 2 puff, inhalation, Every 6 hours PRN (certified respiratory therapist), wheezing, Starting on Sat05/22/22 at 1315 dextrose [...] 05/23/2022 documented in this encounter Care Teams Real Estate Leasing Agent Relationship Specialty Start Date End Date Dat Benito DO [address] [place] [address] PCP - General Internal Medicine 09/28/21 Aft, Kianna Machado MD PhD [address] [place] [address] Surgeon Surgical Oncology 11/22/17 Santiago Gilbert MD [address] [place] [address] Parts Sales Associate Gastroenterology 11/22/17 Abbi Ventura MD [address] [place] [address] [address] [place] [address] Medical Oncologist/Medical Esthetician Medical Oncology 12/03/18 Montse Thompson MD [address] [facility] [address] [place] [address] Consulting Physician Gynecologic Oncology 12/03/18 Lela Hardy MD PhD [address] [facility] [address] [place] [address] Radiation Oncologist Radiation Oncology 12/23/18 Trena Obando MD [address] [place] [address] Consulting Physician Neurology 09/18/21 documented as of this encounter
--- OUTSIDE RECORDS SUMMARY | 2024-04-24 14:47 | XMS_ITS | Encounter Summary ---
Author Organization [facility] Address [address] [place] [address] Phone Care Team Providers Care Outside Energy Sales Representatives Name Role Phone Aft, Kianna Machado MD PhD Unavailable [phone] Santiago Gilbert MD Unavailable [phone] Dmitry Sanderson MD Unavailable [phone] Abbi Ventura MD Unavailable Montse Thompson MD Unavailable [phone] Lela Hardy MD PhD Unavailable [phone] Trena Obando MD Unavailable [phone] Dat Benito DO Primary Care Provider [phone] Encounter Details Date Type Department Care Team (Late st Contact Info) Description 05/02/[address] [facility] Oncology [address] [place] [address] Uriel Corral Invasive ductal carcinoma of breast, [...] on file Legal Sex Female 1:06 AM IDENTIFICATION TECHNICIAN Gender Identity Not on file Sexual Orientation Not on file documented as of this encounter Plan of Treatment Not on file documented as of this encounter Visit Diagnoses Diagnosis Invasive ductal carcinoma of breast, female, right (HCC)- Primary documented in this encounter Care Teams Outside Energy Sales Representatives Relationship Specialty Start Date End Date Dat Benito DO [address] [place] [address] PCP - General Internal Medicine 09/28/21 AftKianna MD PhD [address] [place] [address] Surgeon Surgical Oncology 11/22/17 Santiago Gilbert MD [address] [place] [address] Cytology Laboratory Manager Gastroenterology 11/22/17 Dmitry Sanderson MD [address] [place] [address] Referring Physician Colon and Rectal Surgery 12/03/1805/06 Abbi Ventura MD [address] [place] [address] [address] [place] [address] Medical Oncologist/Can Patcher Medical Oncology 12/03/18 Montse Thompson MD [facility] [place] [address] Consulting Physician Gynecologic Oncology 12/03/18 Lela Hardy MD PhD [address] [facility] [address] [place] [address] Radiation Oncologist Radiation Oncology 12/23/18 Trena Obando MD [address] [place] [address] Consulting Physician Neurology 09/18/21 documented as of this encounter
--- OUTSIDE RECORDS SUMMARY | 2024-04-24 14:47 | XMS_ITS | Encounter Summary ---
Author Organization [facility] Address [address] [place] [address] Care Team Providers Care Groundskeeper Name Role Phone Aft, Kianna Machado MD PhD Unavailable [phone] Santiago Gilbert MD Unavailable [phone] Abbi Ventura MD Unavailable Montse Thompson MD Unavailable [phone] Lela Hardy MD PhD Unavailable [phone] Trena Obando MD Unavailable [phone] Dat Benito DO Primary Care Provider [phone] Reason for Visit * Auth/Cert Specialty Diagnoses / Procedures Referred By Contac t Referred To Contact Diagnoses Malignant neoplasm of upper-inner quadrant of left breast in female, 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, 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) (HCC) [C50.212, Z17.1] Procedures NY BX/EXC LYMPH NODE OPEN SUPERFICIAL NY MASTECTOMY SIMPLE COMPLETE NY INTRAOP SENTINEL LYMPH NODE ID W/DYE INJECTION MASTECTOMY BILATERAL BIOPSY SENTINEL LYMPH NODE with magtrace Referral ID Status Reason Start Date Expiration Date Visits Re quested Visits Authorized [id number] 1 1 Encounter Details Date Type Department Care Team (Late st Contact Info) Description 05/22/2022 7:47 AM REVENUE SETTLEMENTS ADMINISTRATOR Anesthesia Event [facility] [address] [place] [address] Wisam Bledsoe MD [address] [facility] [address] [place] [address] Sofie Avendano NP [address] [facility] [id number] [place] [address] Anesthesia Record Procedure Summary Procedure Name Responsible [...] Time: 1018 05/22/22 0813 by Mariam López, HOME CARE AIDE 05/22/22 1018 by Mariam López CRNA Closed/Suction/Open [...] on file Legal Sex Female 1:06 AM REVENUE SETTLEMENTS ADMINISTRATOR Gender Identity Not on file Sexual Orientation Not on file documented as of this encounter OR Notes * Anesthesia Postprocedure Evaluation - Wisam Bledsoe MD - 05/22/2022 11:46 AM CST Patient: Aleah Gerber Procedure Summary Date: 05/22/22 Room / Location: [facility] CAM OR POD 4 ROOM A / [facility] CAM OR POD 4 Anesthesia Start: 07 [...] on the floor. No notable events documented. NUE SETTLEMENTS ADMINISTRATOR * Anesthesia Procedure Notes - Mariam López CRNA - 05/22/2022 8:13 AM CSTAssociated Order(s): Airway Airway Patient location: OR Urgency: elective Indications for airway management: anesthesia Difficult airway: no Staff: Supervising provider: Wisam Bledsoe MD Placed by: HOME CARE AIDE: Mariam López CRNA Emergent airway documentation: Risks [...] SGA size: 5 Number of attempts: 1 NUE SETTLEMENTS ADMINISTRATOR * Anesthesia Procedure Notes - Santiago Salvador MD - 05/22/2022 7:57 AM REVENUE SETTLEMENTS ADMINISTRATOR Associated Order(s): Peripheral Block Images from the [...] Allyson Goldberg MD at 05/22/2022 11:37 AM REVENUE SETTLEMENTS ADMINISTRATOR NUE SETTLEMENTS ADMINISTRATOR NUE SETTLEMENTS ADMINISTRATOR * Anesthesia Procedure Notes - Santiago Salvador MD - 05/22/2022 7:56 AM REVENUE SETTLEMENTS ADMINISTRATOR Associated Order(s): Peripheral Block Images from the [...] Allyson Goldberg MD at 05/22/2022 11:37 AM REVENUE SETTLEMENTS ADMINISTRATOR NUE SETTLEMENTS ADMINISTRATOR NUE SETTLEMENTS ADMINISTRATOR * Anesthesia Procedure Notes - Santiago Salvador MD - 05/22/2022 7:55 AM REVENUE SETTLEMENTS ADMINISTRATOR Associated Order(s): Peripheral Block Images from the [...] Allyson Goldberg MD at 05/22/2022 11:37 AM REVENUE SETTLEMENTS ADMINISTRATOR NUE SETTLEMENTS ADMINISTRATOR NUE SETTLEMENTS ADMINISTRATOR * Anesthesia Procedure Notes - Santiago Salvador MD - 05/22/2022 7:54 AM REVENUE SETTLEMENTS ADMINISTRATOR Associated Order(s): Peripheral Block Images from the [...] Allyson Goldberg MD at 05/22/2022 11:36 AM REVENUE SETTLEMENTS ADMINISTRATOR NUE SETTLEMENTS ADMINISTRATOR NUE SETTLEMENTS ADMINISTRATOR Associated attestation - Allyson Goldberg MD - 05/22/2022 11:36 AM REVENUE SETTLEMENTS ADMINISTRATOR Agreed * Anesthesia Preprocedure Evaluation - Wisam Bledsoe MD - 05/11/2022 12:52 PM CST Images from the original note were not included. [facility] Planning Preoperative Evaluation Record Evaluation type/location: TPAP from [facility] Planned procedure site: [facility] CAM OR (Pod 4) Date: 05/11/22 NOTE: [...] provided by telephone and electronically sent via RoomReveal. Patient verbalized understanding of preoperative plan. Blood [...] Breast Needle Localization partial mastectomy (L), Biopsy [place] Lymph Node With Lymphoscintigraphy (L), Insertion Port [...] Medication protocol when under care of a HOME CARE AIDE Planned anesthesia: General and PNB - single [...] and agree to proceed. All questions answered. NUE SETTLEMENTS ADMINISTRATOR NUE SETTLEMENTS ADMINISTRATOR documented in this encounter Plan of Treatment Not on file documented as of this encounter Procedures Procedure Name Priority Date/Time Associated Diagnosis Comments NY AN PROCEDURE PLACEHOLDER Routine 05/22/2022 8:13 AM REVENUE SETTLEMENTS ADMINISTRATOR NY AN ELECTIVE SUPRAGLOTTIC AIRWAY Routine 05/22/2022 8:13 AM REVENUE SETTLEMENTS ADMINISTRATOR [place] AN PROCEDURE PLACEHOLDER Routine 05/22/2022 7:57 AM REVENUE SETTLEMENTS ADMINISTRATOR NY AN PROCEDURE PLACEHOLDER Routine 05/22/2022 7:56 AM REVENUE SETTLEMENTS ADMINISTRATOR NY AN PROCEDURE PLACEHOLDER Routine 05/22/2022 7:55 AM REVENUE SETTLEMENTS ADMINISTRATOR [place] AN PROCEDURE PLACEHOLDER Routine 05/22/2022 7:54 AM REVENUE SETTLEMENTS ADMINISTRATOR documented in this encounter Results * NY AN ELECTIVE SUPRAGLOTTIC AIRWAY, NY AN PROCEDURE PLACEHOLDER (05/22/2022 8:13 AM REVENUE SETTLEMENTS ADMINISTRATOR) Narrative Mariam López CRNA - 05/22/2022 8:13 AM REVENUE SETTLEMENTS ADMINISTRATOR Mariam López CRNA ? 05/22/2022 ??8:13 AM Airway Patient location: OR Urgency: elective Indications for airway management: anesthesia Difficult airway: no Staff: Supervising provider: Wisam Bledsoe MD Placed by: HOME CARE AIDE: Mariam López CRNA Emergent airway documentation: Risks [...] MD ANESTHESIA ORDERABLES Final Res ult * [place] AN PROCEDURE PLACEHOLDER (05/22/2022 7:57 AM REVENUE SETTLEMENTS ADMINISTRATOR) Allyson Woods MD - 05/22/2022 7:57 AM REVENUE SETTLEMENTS ADMINISTRATOR Santiago Salvador MD ? 05/22/2022 ??7:57 AM [...] MD ANESTHESIA ORDERABLES Final Res ult * [place] AN PROCEDURE PLACEHOLDER (05/22/2022 7:56 AM REVENUE SETTLEMENTS ADMINISTRATOR) Allyson Woods MD - 05/22/2022 7:56 AM REVENUE SETTLEMENTS ADMINISTRATOR Santiago Salvador MD ? 05/22/2022 ??7:57 AM [...] MD ANESTHESIA ORDERABLES Final Res ult * [place] AN PROCEDURE PLACEHOLDER (05/22/2022 7:55 AM REVENUE SETTLEMENTS ADMINISTRATOR) Allyson Woods MD - 05/22/2022 7:55 AM [...] MD ANESTHESIA ORDERABLES Final Res ult * [place] AN PROCEDURE PLACEHOLDER (05/22/2022 7:54 AM REVENUE SETTLEMENTS ADMINISTRATOR) Allyson Woods MD - 05/22/2022 7:54 AM [...] 0739, Anesthesia Intra-op Given 05/22/2022 7:44 AM REVENUE SETTLEMENTS ADMINISTRATOR 10 mL Given 05/22/2022 7:43 AM REVENUE SETTLEMENTS ADMINISTRATOR 15 mL Given 05/22/2022 7:40 AM REVENUE SETTLEMENTS ADMINISTRATOR 10 mL ceFAZolin (ANCEF) injection intravenous, Administer over 3 Minutes, As needed, Starting on Sat05/22/22 at 0805, Anesthesia Intra-op Given 05/22/2022 8:05 AM REVENUE SETTLEMENTS ADMINISTRATOR 2,000 mg dexAMETHasone (DECADRON) 4 mg/mL injection intravenous, Administer over 2 Minutes, As needed, Starting on Sat05/22/22 at 0806, Anesthesia Intra-op Given 05/22/2022 8:06 AM REVENUE SETTLEMENTS ADMINISTRATOR 4 mg ePHEDrine injection intravenous, Administer over 5 Minutes, As needed, Starting on Sat05/22/22 at 0857, Anesthesia Intra-op Given 05/22/2022 9:28 AM REVENUE SETTLEMENTS ADMINISTRATOR 5 mg Given 05/22/2022 9:18 AM REVENUE SETTLEMENTS ADMINISTRATOR 10 mg Given 05/22/2022 8:57 AM REVENUE SETTLEMENTS ADMINISTRATOR 10 mg fentaNYL (SUBLIMAZE) preservative free injection intravenous, As needed, Starting on Sat05/22/22 at 0730, Anesthesia Intra-op Given 05/22/2022 10:21 AM REVENUE SETTLEMENTS ADMINISTRATOR 100 mc g Given 05/22/2022 8:22 AM REVENUE SETTLEMENTS ADMINISTRATOR 100 mcg Given 05/22/2022 7:57 AM REVENUE SETTLEMENTS ADMINISTRATOR 100 mcg Lactated Ringer's (LR) infusion 30 mL/hr, intravenous, Continuous, Starting on Sat05/22/22 at 0630 New Bag 05/22/2022 9:36 AM REVENUE SETTLEMENTS ADMINISTRATOR Rate/Dose Verify 05/22/2022 7:47 AM REVENUE SETTLEMENTS ADMINISTRATOR 30 mL/h r Rate/Dose Change 05/22/2022 7:47 AM REVENUE SETTLEMENTS ADMINISTRATOR 30 mL/h r lidocaine (cardiac) (XYLOCAINE) preservative free injection intravenous, As needed, Starting on Sat05/22/22 at 0757, Anesthesia Intra-op, Indications: Ventricular ArrhythmiasIndications:Ventricular Arrhythmias Given 05/22/2022 7:57 AM REVENUE SETTLEMENTS ADMINISTRATOR 40 mg midazolam (VERSED) 1 mg/mL preservative free injection intravenous, Administer over 2 Minutes, As needed, Starting on Sat05/22/22 at 0730, Anesthesia Intra-op Given 05/22/2022 7:30 AM REVENUE SETTLEMENTS ADMINISTRATOR 2 mg ondansetron (ZOFRAN) injection intravenous, Administer over 2 Minutes, As needed, Starting on Sat05/22/22 at 0928, Anesthesia Intra-op Given 05/22/2022 9:28 AM REVENUE SETTLEMENTS ADMINISTRATOR 4 mg phenylephrine ([place]-SYNEPHRINE) 1 mg/10 mL (100 mcg/mL) in sodium chloride 0.9% (premix) intravenous, As needed, Starting on Sat05/22/22 at 0819, Anesthesia Intra-op Given 05/22/2022 9:29 AM REVENUE SETTLEMENTS ADMINISTRATOR 100 mcg Given 05/22/2022 9:18 AM REVENUE SETTLEMENTS ADMINISTRATOR 100 mcg Given 05/22/2022 8:57 AM REVENUE SETTLEMENTS ADMINISTRATOR 100 mcg propofoL (DIPRIVAN) 10 mg/mL IV intravenous, As needed, Starting on Sat05/22/22 at 0759, Anesthesia Intra-op Given 05/22/2022 7:59 AM REVENUE SETTLEMENTS ADMINISTRATOR 200 mg documented in this encounter Care Teams Groundskeeper Relationship Specialty Start Date End Date Dat Benito DO [address] [place] [address] PCP - General Internal Medicine 09/28/21 Aft, Kianna Machado MD PhD [address] [place] [address] Surgeon Surgical Oncology 11/22/17 Santiago Gilbert MD [address] [place] [address] Grinding Mill Operator Gastroenterology 11/22/17 Abbi Ventura MD [address] [place] [address] [address] [place] [address] Medical Oncologist/Extrusion Die Coordinator Medical Oncology 12/03/18 Montse Thompson MD [address] [place] [address] [address] [place] [address] Consulting Physician Gynecologic Oncology 12/03/18 Lela Hardy MD PhD [address] [place] [address] [address] [place] [address] Radiation Oncologist Radiation Oncology 12/23/18 Trena Obando MD [address] [place] [address] Consulting Physician Neurology 09/18/21 documented as of this encounter
--- OUTSIDE RECORDS SUMMARY | 2024-04-24 14:47 | XMS_ITS | Encounter Summary ---
Author Organization [facility] Address [address] [place] [address] Phone Care Team Providers Care Binder Folder Operator Name Role Phone Aft, Kianna Machado MD PhD Unavailable [phone] Santiago Gilbert MD Unavailable [phone] Dmitry Sanderson MD Unavailable [phone] Abbi Ventura MD Unavailable Montse Thompson MD Unavailable [phone] Lela Hardy MD PhD Unavailable [phone] Trena Obando MD Unavailable [phone] Dat Benito DO Primary Care Provider [phone] Encounter Details Date Type Department Care Team (Late st Contact Info) Description 04/17/2022 Telephone [facility] Oncology [address] [place] [address] Uriel Corral Social History Tobacco Use Types [...] on file Legal Sex Female 1:06 AM INTERNAL COMMUNICATIONS INTERN Gender Identity Not on file Sexual [...] Jones RN sent at 04/16/2022 3:19 PM INTERNAL COMMUNICATIONS INTERN ----- Regarding: FW: Pathology Contact: ----- Message ----- From: Aleah Gerber Sent: 04/16/2022 2:17 PM INTERNAL COMMUNICATIONS INTERN To: Chino Ventura Clinical Support Subject: Pathology Hello. Do your pathology reports come at a specific time of the day or specific day? Had Biopsy on SaturdayApril 13. Was Offered a new job, told them I would get back to them about accepting. Aleah RNAL COMMUNICATIONS INTERN RNAL COMMUNICATIONS INTERN documented in this encounter Plan of Treatment Not on file documented as of this encounter Visit Diagnoses Not on filedocumented in this encounter Care Teams Binder Folder Operator Relationship Specialty Start Date End Date Dat Benito DO [address] [place] [address] PCP - General Internal Medicine 09/28/21 Aft, Kianna Machado MD PhD [address] [place] [address] Surgeon Surgical Oncology 11/22/17 Santiago Gilbert MD [address] [place] [address] Packerhead Machine Operator Gastroenterology 11/22/17 Dmitry Sanderson MD [address] [place] [address] Referring Physician Colon and Rectal Surgery 12/03/1805/06 Abbi Ventura MD [facility] [address] [place] [address] Medical Oncologist/Manager Lab Medical Oncology 12/03/18 Montse Thompson MD [facility] [address] [place] [address] Consulting Physician Gynecologic Oncology 12/03/18 Lela Hardy MD PhD [facility] [address] [place], [place] [address] Radiation Oncologist Radiation Oncology 12/23/18 Trena Obando MD [address] [place], [place] [address] Consulting Physician Neurology 09/18/21 documented as of this encounter
--- OUTSIDE RECORDS SUMMARY | 2024-04-24 14:47 | XMS_ITS | Encounter Summary ---
Author Organization [facility] Address [address] [place] [address] Phone Care Team Providers Care Steel Construction Worker Name Role Phone Aft, Kianna Machado MD PhD Unavailable [phone] Santiago Gilbert MD Unavailable [phone] Dmitry Sanderson MD Unavailable [phone] Abbi Ventura MD Unavailable Montse Thompson MD Unavailable [phone] Lela Hardy MD PhD Unavailable [phone] Trena Obando MD Unavailable [phone] Dat Benito DO Primary Care Provider [phone] Encounter Details Date Type Department Care Team [...] file Legal Sex Female 1:06 AM HAND TWISTER Gender Identity Not on file Sexual Orientation [...] filedocumented in this encounter Care Teams Steel Construction Worker Relationship Specialty Start Date End Date Dat Benito DO [address] [place] [address] PCP - General Internal Medicine 09/28/21 Aft, Kianna Machado MD PhD [address] [place] [address] Surgeon Surgical Oncology 11/22/17 Santiago Gilbert MD [address] [place] [address] Dimpling Machine Operator Gastroenterology 11/22/17 Dmitry Sanderson MD [address] [place] [address] Referring Physician Colon and Rectal Surgery 12/03/1805/06 Abbi Ventura MD [address] [facility] [address] [place] [address] Medical Oncologist/Director Of Student Life Medical Oncology 12/03/18 Montse Thompson MD [address] [facility] [address] [place] [address] Consulting Physician Gynecologic Oncology 12/03/18 Lela Hardy MD PhD [address] [facility] [address] [place] [address] Radiation Oncologist Radiation Oncology 12/23/18 Trena Obando MD [address] [place] [address] Consulting Physician Neurology 09/18/21 documented as of this encounter
--- OUTSIDE RECORDS SUMMARY | 2024-04-24 14:47 | XMS_ITS | Encounter Summary ---
Author Organization [facility] Address [address] [place] [address] Care Team Providers Care Agricultural Produce Packer Name Role Phone Aft, Kianna Machado MD PhD Unavailable [phone] Santiago Gilbert MD Unavailable [phone] Dmitry Sanderson MD Unavailable [phone] Abbi Ventura MD Unavailable Montse Thompson MD Unavailable [phone] Lela Hardy MD PhD Unavailable [phone] Trena Obando MD Unavailable [phone] Dat Benito DO Primary Care Provider [phone] Reason for Referral * MRI/CAT/PET Scan (Routine) - Closed Specialty Diagnoses / Procedures Referred By Contac t Referred To Contact Radiology Diagnoses Malignant neoplasm of upper-inner quadrant of left breast in female, 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) Procedures MRI Breast Bilateral W WO Contrast Abbi Ventura MD [address] [place] [address] Phone: tel: fax: [facility] Referral ID Status Reason Start Date Expiration Date Visits Re quested Visits Authorized [id number] Closed 02/01/2022 03/03/2023 1 1 K ASH WORKER Reason for Visit * MRI/CAT/PET Scan (Routine) - Closed Specialty Diagnoses / Procedures Referred By Contac t Referred To Contact Radiology Diagnoses Malignant neoplasm of upper-inner quadrant of left breast in female, 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) Procedures MRI Breast Bilateral W WO Contrast Abbi Ventura MD [address] [facility] [address] [place] [address] Phone: tel: fax: [facility] Referral ID Status Reason Start Date Expiration Date Visits Re quested Visits Authorized [id number] Closed 02/01/2022 03/03/2023 1 1 Encounter Details Date Type Department Care Team (Latest Contact Info) Description 03/23/2022 8:00 AM BLACK ASH WORKER - 03/23/2022 11:59 PM BLACK ASH WORKER Hospital Encounter [facility] [address] [place] [address] Malignant neoplasm of upper-inner quadrant of left [...] on file Legal Sex Female 1:06 AM BLACK ASH WORKER Gender Identity Not on file Sexual [...] biopsy results are back if positivefor cancer. 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 New 1.0 cm non-mass enhancement in [...] Yoana Ash M.D. Narrative 03/23/2022 12:31 PM BLACK ASH WORKER EXAMINATION: 1. MRI EXAMINATION OF THE BREASTS [...] Yoana Ash M.D. Abbi Ventura MD [facility] [place] PROCEDURES Final Result documented in this [...] 1 dose Contrast Given 03/23/2022 8:49 AM BLACK ASH WORKER 20 mL documented in this encounter Orders Medications Ordered That [place] ht Not Have Been Administered Count Last Ordered Date First Ordered Date gadoterate meglumine injection 20 mL 1 03/06 documented in this encounter Care Teams Agricultural Produce Packer Relationship Specialty Start Date End Date Dat Benito DO [address] [place] [address] PCP - General Internal Medicine 09/28/21 Aft, Kianna Machado MD PhD [address] [place] [address] Surgeon Surgical Oncology 11/22/17 Santiago Gilbert MD [address] [place] [address] Marketing Operations Associate Gastroenterology 11/22/17 Dmitry Sanderson MD [address] [place] [address] Referring Physician Colon and Rectal Surgery 12/03/1805/06 Abbi Ventura MD [address] [facility] [address] [place] [address] Medical Oncologist/Pet Stylist Medical Oncology 12/03/18 Montse Thompson MD [address] [facility] [address] [place] [address] Consulting Physician Gynecologic Oncology 12/03/18 Lela Hardy MD PhD [address] [facility] [address] [place] [address] Radiation Oncologist Radiation Oncology 12/23/18 Trena Obando MD [address] [place] [address] Consulting Physician Neurology 09/18/21 documented as of this encounter
--- OUTSIDE RECORDS SUMMARY | 2024-04-24 14:47 | XMS_ITS | Encounter Summary ---
Author Organization [facility] Address [address] [place] [address] Care Team Providers Care Heating And Blending Supervisor Name Role Phone Aft, Kianna Machado MD PhD Unavailable [phone] Santiago Gilbert MD Unavailable [phone] Dmitry Sanderson MD Unavailable [phone] Abbi Ventura MD Unavailable Montse Thompson MD Unavailable [phone] Lela Hardy MD PhD Unavailable [phone] Trena Obando MD Unavailable [phone] Dat Benito DO Primary Care Provider [phone] Encounter Details Date Type Department Care Team (Late st Contact Info) Description 02/01/2022 3:10 PM CDT Lab [facility] [address] [place] [address] Malignant neoplasm of upper-inner quadrant of left [...] on file Legal Sex Female 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 73 [...] LAB BLOOD ORDERABLES Final Resul t [facility] Department [place] [address] * Differential, auto (02/01/2022 3:28 PM CDT) Neutrophil abs 4.7 1.7 - 6.5 K/cumm [facility] Comment:Testing performed by : [address] [address] Imm gran abs 0.0 0.0 - 0.1 K/cumm [facility] Lymphocyte abs 1.8 0.8 - 3.3 K/cumm [facility] Monocyte abs 0.4 0.2 - 0.8 K/cumm [facility] Eosinophil abs 0.3 0.0 - 0.5 K/cumm [facility] Basophil abs 0.1 0.0 - 0.1 K/cumm [facility] Neutrophil pct 64.9 % [facility] Comment: Interpretive Data Percent cell count reference ranges are not reported, since discordance with absolute values may lead to misinterpretation of CBC data. Current Interpretive Data was last revised on 2017. Imm gran pct 0.3 % [facility] Comment: Interpretive Data Percent cell count reference ranges are not reported, since discordance with absolute values may lead to misinterpretation of CBC data. Current Interpretive Data was last revised on 2017. Lymphocyte pct 24.1 % [facility] Comment: Interpretive Data Percent cell count reference ranges are not reported, since discordance with absolute values may lead to misinterpretation of CBC data. Current Interpretive Data was last revised on 2017. Monocyte pct 5.3 % [facility] Comment: Interpretive Data Percent cell count reference ranges are not reported, since discordance with absolute values may lead to misinterpretation of CBC data. Current Interpretive Data was last revised on 2017. Eosinophil pct 4.4 % [facility] Comment: Interpretive Data Percent cell count reference ranges are not reported, since discordance with absolute values may lead to misinterpretation of CBC data. Current Interpretive Data was last revised on 2017. Basophil pct 1.0 % [facility] Comment: Interpretive Data Percent cell count reference ranges are not reported, since discordance with absolute values may lead to misinterpretation of CBC data. Current Interpretive Data was last revised on 2017. Blood 02/01/2022 3:28 PM CDT 02/01/2022 3:28 PM CDT us Abbi Ventura MD LAB BLOOD ORDERABLES Final Resul t [facility] [place] [address] * (ABNORMAL) CBC with auto differential (02/01/2022 3:28 PM CDT) WBC 7.3 3.8 - 9.9 K/cumm [facility] Comment:Testing performed by : [address] [address] Hgb 12.3 11.9 - 15.5 g/dL [facility] Comment:Testing performed by : [address] [address] Hct 38.3 35.6 - 45.5 % [facility] Comment:Testing performed by : [address] [address] Plt 180 150 - 400 K/cumm [facility] Comment:Testing performed by : [address] [address] MPV 9.4 9.1 - 12.3 fL [facility] RBC 4.25 3.90 - 5.20 M/cumm [facility] MCV 90.1 81.3 - 96.4 fL [facility] MCH 28.9 27.1 - 33.3 pg [facility] MCHC 32.1(L) 32.3 - 35.7 g/dL [facility] RDW CV 13.5 11.1 - 14.9 % [facility] RDW SD 43.8 35.7 - 48.1 fL [facility] NRBC abs 0.00 0.00 - 0.01 K/cumm [facility] Blood 02/01/2022 3:28 PM CDT 02/01/2022 3:28 PM CDT Abbi Ventura MD LAB BLOOD ORDERABLES Final Resul t [facility] [place] [address] * (ABNORMAL) Comprehensive metabolic panel (02/01/2022 3:28 PM CDT) Sodium 139 135 - 145 mmol/L [facility] Comment:Testing performed by : [facility], [address] [place] [address] Potassium, pl 4.2 3.3 - 4.9 mmol/L [facility] Chloride 105 97 - 110 mmol/L [facility] CO2 25 22 - 32 mmol/L [facility] Anion gap 9 2 - 15 mmol/L [facility] BUN 21 8 - 25 mg/dL [facility] Creatinine 1.25(H) 0.60 - 1.10 mg/dL [facility] Glucose 192 70 - 199 mg/dL [facility] Comment: Interpretive Data Fasting glucose [...] Calcium 9.6 8.5 - 10.3 mg/dL [facility] Bilirubin, total 0.3 0.1 - 1.2 mg/dL [facility] Protein, pl 7.1 6.5 - 8.5 g/dL [facility] Albumin 4.1 3.5 - 5.0 g/dL [facility] Alk phos 108 40 - 130 Units/L [facility] ALT 12 7 - 45 Units/L [facility] AST 18 10 - 45 Units/L [facility] Blood 02/01/2022 3:28 PM CDT 02/01/2022 3:28 PM CDT Abbi Ventura MD LAB BLOOD ORDERABLES Final Resul t Performing Organization Address [facility] de Phone Number [facility] Scan•[place] [address] * CEA (02/01/2022 3:28 PM CDT) Pathologist [facility] CEA 2.1 <=5.0 ng/mL [facility] Comment: Interpretive Data: Reference Range: [...] ORDERABLES Final Resul t Performing Organization Address [facility] de Phone Number [facility] of Scan•[place] [address] * CA 125 (02/01/2022 3:28 PM CDT) CA 125 ag 9.6 0.0 - 38.0 units/mL [facility] Comment: Interpretive Data The Bo CA 125 assay procedure was used. Results from different manufacturers or methods may not be comparable. Serial testing should be performed using the same method. Blood 02/01/2022 3:28 PM CDT 02/01/2022 6:09 PM CDT Abbi Ventura MD LAB BLOOD ORDERABLES Final Resul t Performing Organization Address [facility] Co de Phone Number [facility] [place] [address] * (ABNORMAL) TSH (02/01/2022 3:28 PM CDT) Thyroid Stimulating Hormone 0.18(L) 0.30 - 4.20 mcIUnit/mL [facility] Blood 02/01/2022 3:28 PM CDT 02/01/2022 6:09 PM CDT Abbi Ventura MD LAB BLOOD ORDERABLES Final Resul t Performing Organization Address [facility] de Phone Number [facility] Department [place] [address] * T4, free (02/01/2022 3:28 PM CDT) Free T4 1.27 0.90 - 1.70 ng/dL [facility] Blood 02/01/2022 3:28 PM CDT 02/01/2022 6:09 PM CDT Abbi Ventura MD LAB BLOOD ORDERABLES Final Resul t Performing Organization Address [facility] de Phone Number [facility] [place] [address] * (ABNORMAL) T3, free (02/01/2022 3:28 PM CDT) Free T3 1.8(L) 2.0 - 4.4 pg/mL [facility] Blood 02/01/2022 3:28 PM CDT 02/01/2022 6:09 PM CDT us Abbi Ventura MD LAB BLOOD ORDERABLES Final Resul t [facility] Department [place] [address] documented in this encounter Visit Diagnoses Diagnosis Malignant neoplasm of upper-inner quadrant of left breast in female, 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) Malignant neoplasm of descending colon documented in this encounter Care Teams Heating And Blending Supervisor Relationship Specialty Start Date End Date Dat Benito DO [address] [place] [address] PCP - General Internal Medicine 09/28/21 Aft, Kianna Machado MD PhD [address] [place] [address] Surgeon Surgical Oncology 11/22/17 Santiago Gilbert MD [address] [place] [address] Stitch Bonding Machine Operator Gastroenterology 11/22/17 Dmitry Sanderson MD [address] [place] [address] Referring Physician Colon and Rectal Surgery 12/03/1805/06 Abbi Ventura MD [address] [place] [address] Medical Oncologist/Candy Butcher Medical Oncology 12/03/18 Montse Thompson MD [address] [place] [address] Consulting Physician Gynecologic Oncology 12/03/18 Lela Hardy MD PhD [address] [facility] [address] [place] [address] Radiation Oncologist Radiation Oncology 12/23/18 Trena Obando MD [address] [place] [address] Consulting Physician Neurology 09/18/21 documented as of this encounter
--- OUTSIDE RECORDS SUMMARY | 2024-04-24 14:47 | XMS_ITS | Encounter Summary ---
Author Organization [facility] Address [address] [place] [address] Phone Care Team Providers Care Community Reinvestment Act Officer Name Role Phone Aft, Kianna Machado MD PhD Unavailable [phone] Santiago Gilbert MD Unavailable [phone] Dmitry Sanderson MD Unavailable [phone] Abbi Ventura MD Unavailable Montse Thompson MD Unavailable Lela Hardy MD PhD Unavailable [phone] Trena Obando MD Unavailable Dat Benito DO Primary Care Provider [phone] Encounter Details Date Type Department Care Team (Late st Contact Info) Description 05/15/2022 Orders Only [facility] Oncology [address] [place] [address] Patricia Anderson, RN Malignant neoplasm of upper-inner [...] on file Legal Sex Female 1:06 AM LEGAL SERVICES PROFESSIONAL Gender Identity Not on file Sexual [...] 023 documented in this encounter Care Teams Community Reinvestment Act Officer Relationship Specialty Start Date End Date Dat Benito DO [address] [place] [address] PCP - General Internal Medicine 09/28/21 Aft, Kianna Machado MD PhD [address] [place] [address] Surgeon Surgical Oncology 11/22/17 Santiago Gilbert MD [address] [place] [address] Car Changer Gastroenterology 11/22/17 Dmitry Sanderson MD [address] [place] [address] Referring Physician Colon and Rectal Surgery 12/03/1805/06 Abbi Ventura MD [address] [place] [address] [address] [place] [address] Medical Oncologist/Chief Merchandising Officer Medical Oncology 12/03/18 Montse Thompson MD [address] [facility] [address] [place], [place] [address] Consulting Physician Gynecologic Oncology 12/03/18 Lela Hardy MD PhD [address] [place], [place] [address] Radiation Oncologist Radiation Oncology 12/23/18 Trena Obando MD [address] [place], [place] [address] Consulting Physician Neurology 09/18/21 documented as of this encounter
--- OUTSIDE RECORDS SUMMARY | 2024-04-24 14:47 | XMS_ITS | Encounter Summary ---
Author Organization [facility] Address [address] [place] [address] Phone Care Team Providers Care Log Getter Name Role Phone Aft, Kianna Machado MD PhD Unavailable [phone] Santiago Gilbert MD Unavailable [phone] Dmitry Sanderson MD Unavailable [phone] Abbi Ventura MD Unavailable Montse Thompson MD Unavailable [phone] Lela Hardy MD PhD Unavailable Trena Obando MD Unavailable [phone] Dat Benito DO Primary Care Provider [phone] Reason for Referral * MRI/CAT/PET Scan (Routine) - Closed Specialty Diagnoses / Procedures Referred By Contac t Referred To Contact Radiology Diagnoses Malignant neoplasm of upper-inner quadrant of left breast in female, 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) Procedures MRI Breast Bilateral W WO Contrast Abbi Ventura MD [address] [facility] [address] [place] [address] Phone: tel: fax: [facility] Referral ID Status Reason Start Date Expiration Date Visits Re quested Visits Authorized [id number] Closed 02/01/2022 03/03/2023 1 1 Encounter Details Date Type Department Care Team (Late st Contact Info) Description 02/01/2022 3:30 PM CDT Office Visit [facility] Oncology [address] [place] [address] Abbi Ventura MD [address] [facility] [address] [place] [address] 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 Gilbert, her local desktop engineer Aleah Gerber will follow up as directed above, she was encouraged to call in the interim with questions or concerns. We will continue to monitor and review for side effects from treatment. Abbi Ventura MD advertisement compositor Division of Oncology Section of Medical Oncology [facility] Deputy Sheriff Bailiff completed by using [employer] Direct speaking software, therefore, transcriptionvariances may occur. documented in this encounter Plan of Treatment Not on file documented as of this encounter Results * MRI Breast Bilateral W WO Contrast (03/23/2022 9:13 AM BUSINESS SERVICES ANALYST) Anatomical Region Laterality Modality Breast Bilateral Magnetic Resonan ce 03/23/2022 10:5 3 AM BUSINESS SERVICES ANALYST Impressions 03/23/2022 12:31 PM BUSINESS SERVICES ANALYST 1. New 1.0 cm non-mass enhancement in [...] Yoana Ash M.D. Narrative 03/23/2022 12:31 PM BUSINESS SERVICES ANALYST EXAMINATION: 1. MRI EXAMINATION OF THE BREASTS [...] 022 documented in this encounter Care Teams Log Getter Relationship Specialty Start Date End Date Dat Benito DO [address] [place] [address] PCP - General Internal Medicine 09/28/21 Aft, Kianna Machado MD PhD [address] [place] [address] Surgeon Surgical Oncology 11/22/17 Santiago Gilbert MD [address] [place] [address] Siding Installer Gastroenterology 11/22/17 Dmitry Sanderson MD [address] [place] [address] Referring Physician Colon and Rectal Surgery 12/03/1805/06 Abbi Ventura MD [address] [facility] [address] [place] [address] Medical Oncologist/Weaver Needle Loom Medical Oncology 12/03/18 Montse Thompson MD [address] [facility] [address] [place] [address] Consulting Physician Gynecologic Oncology 12/03/18 Lela Hardy MD PhD [address] [facility] [address] [place] [address] Radiation Oncologist Radiation Oncology 12/23/18 Trena Obando MD [address] [place] [address] Consulting Physician Neurology 09/18/21 documented as of this encounter
--- OUTSIDE RECORDS SUMMARY | 2024-04-24 14:47 | XMS_ITS | Encounter Summary ---
Author Organization [facility] Address [address] [place] [address] Phone Care Team Providers Care Leather Seasoner Name Role Phone Aft, Kianna Machado MD PhD Unavailable [phone] Santiago Gilbert MD Unavailable [phone] Dmitry Sanderson MD Unavailable [phone] Abbi Ventura MD Unavailable Montse Thompson MD Unavailable [phone] Lela Hardy MD PhD Unavailable [phone] Trena Obando MD Unavailable [phone] Dat Benito DO Primary Care Provider [phone] Encounter Details Date Type Department Care Team (Late st Contact Info) Description 05/15/2022 Orders Only [facility] Oncology [address] [place] [address] Patricia Anderson, LYDIA Social History Tobacco Use [...] on file Legal Sex Female 1:06 AM FRONT OFFICE ADMINISTRATOR Gender Identity Not on file Sexual Orientation Not on file documented as of this encounter Plan of Treatment Not on file documented as of this encounter Visit Diagnoses Not on filedocumented in this encounter Care Teams Leather Seasoner Relationship Specialty Start Date End Date Dat Benito DO [address] [place] [address] PCP - General Internal Medicine 09/28/21 Aft, Kianna Machado MD PhD [address] [place] [address] Surgeon Surgical Oncology 11/22/17 Santiago Gilbert MD [address] [place] [address] School Health Aide Gastroenterology 11/22/17 Dmitry Sanderson MD [address] [place] [address] Referring Physician Colon and Rectal Surgery 12/03/1805/06 Abbi Ventura MD [address] [place] [address] [address] [place] [address] Medical Oncologist/Cotton Picker Medical Oncology 12/03/18 Montse Thompson MD [address] [place] [address] Consulting Physician Gynecologic Oncology 12/03/18 Lela Hardy MD PhD [address] [facility] [address] [place] [address] Radiation Oncologist Radiation Oncology 12/23/18 Trena Obando MD [address] [place] [address] Consulting Physician Neurology 09/18/21 documented as of this encounter
--- OUTSIDE RECORDS SUMMARY | 2024-04-24 14:47 | XMS_ITS | Encounter Summary ---
Author Organization [facility] Address [address] [place] [address] Phone Care Team Providers Care Outside Sales Name Role Phone Aft, Kianna Machado MD PhD Unavailable [phone] Santiago Gilbert MD Unavailable [phone] Dmitry Sanderson MD Unavailable [phone] Abbi Ventura MD Unavailable Montse Thompson MD Unavailable [phone] Lela Hardy MD PhD Unavailable [phone] Trena Obando MD Unavailable [phone] Dat Benito DO Primary Care Provider [phone] Reason for Referral * MRI/CAT/PET Scan (Routine) - Closed Specialty Diagnoses / Procedures Referred By Contac t Referred To Contact Radiology Diagnoses Malignant neoplasm of upper-inner quadrant of left breast in female, estrogen receptor negative (HCC) Procedures MRI Guided Breast Biopsy Right Abbi Ventura MD [address] [facility] [address] [place] [address] Phone: tel: fax: [address] [address] Referral ID Status Reason Start Date Expiration Date Visits Re quested Visits Authorized [id number] Closed 03/23/2022 04/22/2023 1 1 ROBE SPECIALTY WORKER Encounter Details Date Type Department Care Team (Late st Contact Info) Description 03/23/2022 Orders Only [facility] Oncology [address] [place] [address] Abbi Ventura MD [address] [facility] [address] [place] [address] Malignant neoplasm of upper-inner quadrant of left [...] on file Legal Sex Female 1:06 AM WARDROBE SPECIALTY WORKER Gender Identity Not on file Sexual Orientation Not on file documented as of this encounter Plan of Treatment Not on file documented as of this encounter Results * MRI Guided Breast Biopsy Right (04/13/2022 8:06 AM WARDROBE SPECIALTY WORKER) Anatomical Region Laterality Modality Breast Right Magnetic Resonan ce 04/13/2022 1:22 PM WARDROBE SPECIALTY WORKER Addenda Addendum by Nina Lawrence MD on 04/18/2022 5:00 PM WARDROBE SPECIALTY WORKER This addendum is being issued to add [...] to see Dr. Abbi Ventura on 04/26/2022. ROBE SPECIALTY WORKER ADDENDUM: Pathology from biopsy of the right [...] Nina Lawrence M.D. Impressions 04/13/2022 1:37 PM WARDROBE SPECIALTY WORKER Successful MRI-guided vacuum-assisted core needle biopsy of [...] Nina Lawrence M.D. Narrative 04/13/2022 1:37 PM WARDROBE SPECIALTY WORKER EXAMINATION: RIGHT BREAST VACUUM-ASSISTED CORE BIOPSY UTILIZING [...] in the procedure. ??Dr. Dale Davis (residential program coordinator) was present and participated in the procedure. [...] in the procedure. Dr. Dale Davis (residential program coordinator) was present and participated in the procedure. [...] (HCC) documented in this encounter Care Teams Outside Sales Relationship Specialty Start Date End Date Dat Benito DO [address] [place] [address] PCP - General Internal Medicine 09/28/21 Aft, Kianna Machado MD PhD [address] [place] [address] Surgeon Surgical Oncology 11/22/17 Santiago Gilbert MD [address] [place] [address] Cashier Self Service Gasoline Gastroenterology 11/22/17 Dmitry Sanderson MD [address] [place] [address] Referring Physician Colon and Rectal Surgery 12/03/1805/06 Abbi Ventura MD [address] [place] [address] [address] [place] [address] Medical Oncologist/8Th Grade Mathematics Teacher Medical Oncology 12/03/18 Montse Thompson MD [address] [facility] [address] [place], [place] [address] Consulting Physician Gynecologic Oncology 12/03/18 Lela Hardy MD PhD [address] [facility] [address] [place], [place] [id number] Radiation Oncologist Radiation Oncology 12/23/18 Trena Obando MD [address] [place], [place] [address] Consulting Physician Neurology 09/18/21 documented as of this encounter
--- OUTSIDE RECORDS SUMMARY | 2024-04-24 14:47 | XMS_ITS | Encounter Summary ---
Author Organization [facility] Address [address] [place] [address] Phone Care Team Providers Care Exceptional Children'S Teacher Name Role Phone Aft, Kianna Machado MD PhD Unavailable [phone] Santiago Gilbert MD Unavailable [phone] Dmitry Sanderson MD Unavailable [phone] Abbi Ventura MD Unavailable Montse Thompson MD Unavailable [phone] Lela Hardy MD PhD Unavailable [phone] Trena Obando MD Unavailable [phone] Dat Benito DO Primary Care Provider [phone] Encounter Details Date Type Department Care Team (Late st Contact Info) Description 04/17/2022 Orders Only [facility] Oncology [address] [place] [address] Abbi Ventura MD [address] [facility] [address] [place], [place] [id number] Malignant neoplasm of upper-inner quadrant of left [...] file Legal Sex Female 1:06 AM STEAM PRESSURE CHAMBER OPERATOR Gender Identity Not on file Sexual Orientation Not on file documented as of this encounter Plan of Treatment Not on file documented as of this encounter Results * (ABNORMAL) Comprehensive metabolic panel (07/04/2022 12:41 PM STEAM PRESSURE CHAMBER OPERATOR) [facility] Sodium 143 135 - 145 mmol/L [facility] Comment:Testing performed by : [facility], [address] [place] [address] Potassium, pl 4.8 3.3 - 4.9 mmol/L [facility] Chloride 109 97 - 110 mmol/L [facility] CO2 28 22 - 32 mmol/L [facility] Anion gap 6 2 - 15 mmol/L [facility] BUN 16 8 - 25 mg/dL [facility] Creatinine 1.32(H) 0.60 - 1.10 mg/dL [facility] Glucose 158 70 - 199 mg/dL [facility] Comment: Interpretive Data Fasting glucose >/= [...] 2022. Calcium 9.6 8.5 - 10.3 mg/dL [facility] Bilirubin, total 0.3 0.1 - 1.2 mg/dL [facility] Protein, pl 7.0 6.5 - 8.5 g/dL [facility] Albumin 4.3 3.5 - 5.0 g/dL [facility] Alk phos 98 40 - 130 Units/L [facility] ALT 13 7 - 45 Units/L [facility] AST 16 10 - 45 Units/L [facility] Blood 07/04/2022 12:4 1 PM STEAM PRESSURE CHAMBER OPERATOR 07/04/2022 12:42 PM STEAM PRESSURE CHAMBER OPERATOR us Abbi Ventura MD LAB BLOOD ORDERABLES Final Resul t [facility] Department [place] [address] * (ABNORMAL) CBC with auto differential (07/04/2022 12:41 PM STEAM PRESSURE CHAMBER OPERATOR) WBC 7.9 3.8 - 9.9 K/cumm [facility] Comment:Testing performed by : [address] [address] Hgb 11.8(L) 11.9 - 15.5 g/dL [facility] Comment:Testing performed by : [address] [address] Hct 37.3 35.6 - 45.5 % [facility] Comment:Testing performed by : [address] [address] Plt 199 150 - 400 K/cumm [facility] Comment:Testing performed by : [address] [address] MPV 9.4 9.1 - 12.3 fL [facility] RBC 4.04 3.90 - 5.20 M/cumm [facility] MCV 92.3 81.3 - 96.4 fL [facility] MCH 29.2 27.1 - 33.3 pg [facility] MCHC 31.6(L) 32.3 - 35.7 g/dL [facility] RDW CV 13.4 11.1 - 14.9 % [facility] RDW SD 45.7 35.7 - 48.1 fL [facility] NRBC abs 0.00 0.00 - 0.01 K/cumm [facility] Blood 07/04/2022 12:4 1 PM STEAM PRESSURE CHAMBER OPERATOR 07/04/2022 12:42 PM STEAM PRESSURE CHAMBER OPERATOR us Abbi Ventura MD LAB BLOOD ORDERABLES Final Resul t [facility] Department [place] [address] documented in this encounter Visit Diagnoses Diagnosis Malignant neoplasm of upper-inner quadrant of left breast in female, estrogen receptor negative (HCC)- Primary documented in this encounter Orders Appointment Requests Count Last Ordered Date Fi rst Ordered Date ONCBCN CLINIC APPOINTMENT REQUEST 1 022 documented in this encounter Care Teams Exceptional Children'S Teacher Relationship Specialty Start Date End Date Dat Benito DO [address] [place] [address] PCP - General Internal Medicine 09/28/21 Aft, Kianna Machado MD PhD [address] [place] [address] Surgeon Surgical Oncology 11/22/17 Santiago Gilbert MD [address] [place] [address] Hr Business Partner Gastroenterology 11/22/17 Dmitry Sanderson MD [address] [place] [address] Referring Physician Colon and Rectal Surgery 12/03/1805/06 Abbi Ventura MD [address] [place] [address] [address] [place] [address] Medical Oncologist/Space Planner Medical Oncology 12/03/18 Montse Thompson MD [address] [place] [address] [address] [place] [address] Consulting Physician Gynecologic Oncology 12/03/18 Lela Hardy MD PhD [address] [facility] [address] [place] [address] Radiation Oncologist Radiation Oncology 12/23/18 Trena Obando MD [facility] [address] [place] [address] Consulting Physician Neurology 09/18/21 documented as of this encounter
--- OUTSIDE RECORDS SUMMARY | 2024-04-24 14:47 | XMS_ITS | Encounter Summary ---
Author Organization [facility] Address [address] [place] [address] Care Team Providers Care Provider Enrollment Specialist Name Role Phone Aft, Kianna Machado MD PhD Unavailable [phone] Santiago Gilbert MD Unavailable [phone] Dmitry Sanderson MD Unavailable [phone] Abbi Ventura MD Unavailable Montse Thompson MD Unavailable Lela Hardy MD PhD Unavailable [phone] Trena Obando MD Unavailable [phone] Dat Benito DO Primary Care Provider [phone] Reason for Referral * Diagnostic Imaging (Routine) - Closed Specialty Diagnoses / Procedures Referred By Contronny t Referred To Contact Diagnoses Malignant neoplasm of upper-inner quadrant of left breast in female, estrogen receptor negative (HCC) Procedures Mathew Post Clip Placement Right Abbi Ventura MD [address] [facility] [address] [place] [address] Phone: tel: fax: [address] [address] Referral ID Status Reason Start Date Expiration Date Visits Re quested Visits Authorized [id number] Closed 04/13/2022 05/13/2023 1 1 NG GUIDE Reason for Visit * Diagnostic Imaging (Routine) - Closed Specialty Diagnoses / Procedures Referred By Contac t Referred To Contact Diagnoses Malignant neoplasm of upper-inner quadrant of left breast in female, estrogen receptor negative (HCC) Procedures Mathew Post Clip Placement Abbi Reeves MD [address] [facility] [address] [place] [address] Phone: tel: fax: [address] [place] [address] Referral ID Status Reason Start Date Expiration Date Visits Re quested Visits Authorized [id number] Closed 04/13/2022 05/13/2023 1 1 Encounter Details Date Type Department Care Team (Latest Contact Info) Description 04/13/2022 9:05 AM CAVING GUIDE - 04/13/2022 11:59 PM CAVING GUIDE Hospital Encounter [facility] Advanced Medicine Breast Imaging [facility] ([facility]) [address] [place] [address] Malignant neoplasm of upper-inner quadrant of left [...] on file Legal Sex Female 1:06 AM CAVING GUIDE Gender Identity Not on file Sexual Orientation Not on file documented as of this encounter Discharge Instructions * Discharge Instructions* Breanna Brand RT - 04/13/2022 9:17 AM CAVING GUIDE [facility] Outpatient Discharge Instructions Activity: [...] some bruising. Special instructions: Please call the [facility] nurses at [phone] or the [facility] at [phone] (8am to 5 pm*) if you experience: Extreme redness, bruising, swelling, severe pain or unusual drainage at the biopsy site Fever of 101.5 F If there are any signs of bleeding, lie down and apply firm pressure for 20 minutes. If bleeding persists call the [facility] or your physician. * If it is after hours, a weekend or holiday, please call your breast surgeon or referring physician. Results: You should receive your biopsy results within 3 working days. If you have not been informed of yourresults after this time please call: The breast imaging nurse in the [facility] at [phone]. The breast surgeon's office at . The referring physicians office NG GUIDE documented in this encounter Medications at Time [...] Read Routine (OP Routine) 04/13/2022 9:16 AM CAVING GUIDE Malignant neoplasm of upper-inner quadrant of left breast in female, 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) (HCC) documented in this encounter Results * Mathew Post Clip Placement Right (04/13/2022 9:16 AM CAVING GUIDE) Anatomical Region Laterality Modality Breast Right Mammography 04/13/2022 1:22 PM CAVING GUIDE Addenda Addendum by Nina Lawrence MD on 04/18/2022 5:00 PM CAVING GUIDE This addendum is being issued to add [...] to see Dr. Abbi Ventura on 04/26/2022. NG GUIDE ADDENDUM: Pathology from biopsy of the right [...] Nina Lawrence M.D. Impressions 04/13/2022 1:37 PM CAVING GUIDE Successful MRI-guided vacuum-assisted core needle biopsy of [...] Nina Lawrence M.D. Narrative 04/13/2022 1:37 PM CAVING GUIDE EXAMINATION: RIGHT BREAST VACUUM-ASSISTED CORE BIOPSY UTILIZING [...] in the procedure. ??Dr. Dale Davis (residential mortgage manager) was present and participated in the procedure. [...] present throughout the entire procedure. Dr. Rhoda Pnen (radiology fellow) was present and participated in the procedure. Dr. Dale Davis (residential mortgage manager) was present and participated in the procedure. [...] (HCC) documented in this encounter Care Teams Provider Enrollment Specialist Relationship Specialty Start Date End Date Dat Benito DO [address] [place] [address] PCP - General Internal Medicine 09/28/21 Aft, Kianna Machado MD PhD [address] [place] [address] Surgeon Surgical Oncology 11/22/17 Santiago Gilbert MD [address] [place] [address] Economic Analyst Gastroenterology 11/22/17 Dmitry Sanderson MD [address] [place] [address] Referring Physician Colon and Rectal Surgery 12/03/1805/06 Abbi Ventura MD [address] [place] [address] Medical Oncologist/Call Center Operations Manager Medical Oncology 12/03/18 Montse Thompson MD [address] [place] [address] Consulting Physician Gynecologic Oncology 12/03/18 Lela Hardy MD PhD [address] [facility] [address] [place] [address] Radiation Oncologist Radiation Oncology 12/23/18 Trena Obando MD [address] [place] [address] Consulting Physician Neurology 09/18/21 documented as of this encounter
--- OUTSIDE RECORDS SUMMARY | 2024-04-24 14:47 | XMS_ITS | Encounter Summary ---
Author Organization [facility] Address [address] [place] [address] Phone Care Team Providers Care Digital Community Manager Name Role Phone Aft, Kianna Machado MD PhD Unavailable [phone] Santiago Gilbert MD Unavailable [phone] Dmitry Sanderson MD Unavailable [phone] Abbi Ventura MD Unavailable Montse Thompson MD Unavailable [phone] Lela Hardy MD PhD Unavailable [phone] Trena Obando MD Unavailable [phone] Dat Benito DO Primary Care Provider [phone] Encounter Details Date Type Department Care Team (Late st Contact Info) Description 03/23/2022 Telephone [facility] Oncology [address] [place] [address] Uriel Corral Social History Tobacco Use Types [...] on file Legal Sex Female 1:06 AM MEAT SPECIALIST Gender Identity Not on file Sexual [...] to plan, she was given telephone number [phone] to call and schedule biopsy. She is aware to call our office for any questions/concerns. Uriel Corral RN SPECIALIST documented in this encounter Plan of Treatment Not on file documented as of this encounter Visit Diagnoses Not on filedocumented in this encounter Care Teams Digital Community Manager Relationship Specialty Start Date End Date Dat Benito DO [address] [place] [address] PCP - General Internal Medicine 09/28/21 Aft, Kianna Machado MD PhD [address] [place] [address] Surgeon Surgical Oncology 11/22/17 Santiago Gilbert MD [address] [place] [address] Breaster Gastroenterology 11/22/17 Dmitry Sanderson MD [address] [place] [address] Referring Physician Colon and Rectal Surgery 12/03/1805/06 Abbi Ventura MD [address] [place] [address] [address] [place] [address] Medical Oncologist/Air Intercept Controller Medical Oncology 12/03/18 oMntse Thompson MD 10 [facility] [address] [place] [address] Consulting Physician Gynecologic Oncology 12/03/18 Lela Hardy MD PhD [address] [place] [address] [address] [place] [address] Radiation Oncologist Radiation Oncology 12/23/18 Trena Obando MD [address] [place] [address] Consulting Physician Neurology 09/18/21 documented as of this encounter
--- OUTSIDE RECORDS SUMMARY | 2024-04-24 14:48 | XMS_ITS | Encounter Summary ---
Author Organization [facility] Healthcare Address [address] [place] [address] Care Team Providers Care Collection Technician Name Role Phone Aft, Kianna Machado MD PhD Unavailable [phone] Santiago Gilbert MD Unavailable [phone] Dmitry Sanderson MD Unavailable [phone] Abbi Ventura MD Unavailable Montse Thompson MD Unavailable Lela Hardy MD PhD Unavailable Trena Obando MD Unavailable [phone] Dat Benito DO Primary Care Provider [phone] Reason for Referral * MRI/CAT/PET Scan (Routine) - Closed Specialty Diagnoses / Procedures Referred By Contac t Referred To Contact Radiology Diagnoses Malignant neoplasm of upper-inner quadrant of left breast in female, 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) Procedures MRI Abdomen Pelvis W WO Contrast Abbi Ventura MD [address] [place] [address] Phone: tel: fax: [facility] Referral ID Status Reason Start Date Expiration Date Visits Re quested Visits Authorized [id number] Closed 09/21/2021 10/21/2022 1 1 Reason for Visit * MRI/CAT/PET Scan (Routine) - Closed Specialty Diagnoses / Procedures Referred By Contac t Referred To Contact Radiology Diagnoses Malignant neoplasm of upper-inner quadrant of left breast in female, 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 Radiology at [address] [address] Malignant neoplasm of upper-inner quadrant [...] file Legal Sex Female 1:06 AM FLOOR SPECIALIST Gender Identity Not on file Sexual [...] Creatinine POC 1.3(H) 0.6 - 1.1 mg/dL [facility] Blood 01/27/2022 10:5 9 AM CDT 01/27/2022 10:59 AM CDT Abbi Ventura MD LAB POCT ORDERABLES - DEVICE Fin al Result [facility] One [facility] Department [place] [address] documented in this encounter Visit Diagnoses Diagnosis [...] mL documented in this encounter Care Teams Collection Technician Relationship Specialty Start Date End Date Dat Benito DO [address] [place] [address] PCP - General Internal Medicine 09/28/21 Aft, Kianna Machado MD PhD [address] [place] [address] Surgeon Surgical Oncology 11/22/17 Santiago Gilbert MD [address] [place] [address] Intake Clinician Gastroenterology 11/22/17 Dmitry Sanderson MD [address] [place] [address] Referring Physician Colon and Rectal Surgery 12/03/1805/06 Abbi Ventura MD [address] [place] [address] [address] [place] [address] Medical Oncologist/Cattle Feeder Medical Oncology 12/03/18 Montse Thompson MD [address] [facility] [address] [place] [address] Consulting Physician Gynecologic Oncology 12/03/18 Lela Hardy MD PhD [address] [facility] [address] [place] [address] Radiation Oncologist Radiation Oncology 12/23/18 Trena Obando MD [address] [place] [address] Consulting Physician Neurology 09/18/21 documented as of this encounter
--- OUTSIDE RECORDS SUMMARY | 2024-04-24 14:48 | XMS_ITS | Encounter Summary ---
Author Organization [facility] Healthcare Address [address] [place] [address] Care Team Providers Care Water Resource Consultant Name Role Phone Ravi Smith MD Primary Care Provider [phone] Aft, Kianna Machado MD PhD Unavailable [phone] Santiago Gilbert MD Unavailable [phone] Dmitry Sanderson MD Unavailable [phone] Abbi Ventura MD Unavailable Montse Thompson MD Unavailable [phone] Lela Hardy MD PhD Unavailable [phone] Aft, Kianna Machado MD PhD Unavailable [phone] Reason for Referral * MRI/CAT/PET Scan (Routine) - Closed Specialty Diagnoses / Procedures [facility]erred To Contact Radiology Diagnoses Malignant neoplasm of upper-inner quadrant of left breast in female, 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) Procedures MRI Breast Bilateral W WO Contrast Abbi Ventura MD [address] [facility] [address] [place] [address] Phone: tel: fax: [facility] Referral ID Status Reason Start Date Expiration Date Visits Re quested Visits Authorized [id number] Closed 03/23/2021 04/22/2022 1 1 ICAL DENTIST ASSISTANT Reason for Visit * MRI/CAT/PET Scan (Routine) - Closed Specialty Diagnoses / Procedures Referred By Contac t Referred To Contact Radiology Diagnoses Malignant neoplasm of upper-inner quadrant of left breast in female, 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) Procedures MRI Breast Bilateral W WO Contrast Abbi Ventura MD [address] [facility] [address] [place] [address] Phone: tel: fax: [facility] Referral ID Status Reason Start Date Expiration Date Visits Re quested Visits Authorized [id number] Closed 03/23/2021 04/22/2022 1 1 Encounter Details Date Type Department Care Team (Latest Contact Info) Description 05/15/2021 2:45 PM CLERICAL DENTIST ASSISTANT - 05/15/2021 11:59 PM CLERICAL DENTIST ASSISTANT Hospital Encounter [facility] [address] [place], [place] [id number] Abbi Ventura MD [address] [facility] [address] [place] [address] Malignant neoplasm of upper-inner quadrant [...] on file Legal Sex Female 1:06 AM CLERICAL DENTIST ASSISTANT Gender Identity Not on file Sexual [...] Read Routine (OP Routine) 05/15/2021 4:27 PM CLERICAL DENTIST ASSISTANT Malignant neoplasm of upper-inner quadrant of left breast in female, 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) (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 Continued annual surveillance with breast MRI and bilateral mammography recommended. OVERALL FINAL ASSESSMENT: BI-RADS Category 1: Negative. Electronically signed by: Bety Mendoza M.D. Narrative 05/16/2021 9:43 AM CLERICAL DENTIST ASSISTANT EXAMINATION: 1. MRI EXAMINATION OF THE BREASTS [...] by: Bety Mendoza M.D. Abbi Ventura MD [facility] MRI PROCEDURES Final Result documented in this [...] 1 dose Contrast Given 05/15/2021 3:57 PM CLERICAL DENTIST ASSISTANT 20 mL sodium chloride 0.9% flush 125 mL 125 mL, intravenous, As needed, line care, Starting on Sat05/15/21 at 1557 Given 05/15/2021 3:58 PM CLERICAL DENTIST ASSISTANT 125 mL documented in this encounter Care Teams Water Resource Consultant Relationship Specialty Start Date End Date Ravi Smith MD PCP - General 11/04/17 09/27/21 Aft, Kianna Machado MD PhD [address] [place] [address] Surgeon Surgical Oncology 11/22/17 Santiago Gilbert MD [address] [place] [address] Answering Service Telephone Operator Gastroenterology 11/22/17 Dmitry Sanderson MD [address] [place] [address] Referring Physician Colon and Rectal Surgery 12/03/1805/06 Abbi Ventura MD [address] [place] [address] [address] [place] [address] Medical Oncologist/Youth Corrections Officer Medical Oncology 12/03/18 Montse Thompson MD [address] [place] [address] [address] [place] [address] Consulting Physician Gynecologic Oncology 12/03/18 Lela Hardy MD PhD [address] [place] [address] [address] [place] [address] Radiation Oncologist Radiation Oncology 12/23/18 Aft, Kianna Machado MD PhD [address] [place] [address] [address] [place] [address] Surgeon Surgical Oncology 12/23/18 09/17/21 documented as of this encounter
--- OUTSIDE RECORDS SUMMARY | 2024-04-24 14:48 | XMS_ITS | Encounter Summary ---
Author Organization [facility] Healthcare Address [address] [place] [address] Care Team Providers Care Taker Down Name Role Phone Aft, Kianna Machado MD PhD Unavailable [phone] Santiago Gilbert MD Unavailable [phone] Dmitry Sanderson MD Unavailable [phone] Abbi Ventura MD Unavailable Montse Thompson MD Unavailable [phone] Lela Hardy MD PhD Unavailable [phone] Trena Obando MD Unavailable [phone] Dat Benito DO Primary Care Provider [phone] Reason for Referral * Diagnostic Imaging (Routine) - Closed Specialty Diagnoses / Procedures Referred By Contronny t Referred To Contact Diagnoses Malignant neoplasm of upper-inner quadrant of left breast in female, estrogen receptor negative (HCC) Procedures Screening Mammogram Bilateral W Abbi Bueno MD [address] [facility] [address] [place] [address] Phone: tel: fax: [address] [address] Referral ID Status Reason Start Date Expiration Date Visits Re quested Visits Authorized [id number] Closed 09/21/2021 10/21/2022 1 1 Reason for Visit * Diagnostic Imaging (Routine) - Closed Specialty Diagnoses / Procedures Referred By Contac t Referred To Contact Diagnoses Malignant neoplasm of upper-inner quadrant of left breast in female, estrogen receptor negative (HCC) Procedures Screening Mammogram Bilateral W Abbi Bueno MD [address] [facility] [address] [place] [address] Phone: tel: fax: [address] [address] Referral ID Status Reason Start Date Expiration Date Visits Re quested Visits Authorized [id number] Closed 09/21/2021 10/21/2022 1 1 Encounter Details Date Type Department Care Team (Latest Contact Info) Description 09/28/2021 2:13 PM CDT - 09/28/2021 11:59 PM CDT Hospital Encounter [address] [place] [address] Malignant neoplasm of upper-inner quadrant [...] file Legal Sex Female 1:06 AM COLD ROLL INSPECTOR Gender Identity Not on file Sexual [...] compared to prior imaging studies performed at [facility] on 11/05/2017, 08/11/2018 and 10/06/2020. There are [...] compared to prior imaging studies performed at [facility] on 11/05/2017, 08/11/2018 and 10/06/2020. There are [...] (HCC) documented in this encounter Care Teams Taker Down Relationship Specialty Start Date End Date Dat Benito DO [address] [place] [address] PCP - General Internal Medicine 09/28/21 Aft, Kianna Machado MD PhD [address] [place] [address] Surgeon Surgical Oncology 11/22/17 Santiago Gilbert MD [address] [place] [address] Stars Analytical Lead Gastroenterology 11/22/17 Dmitry Sanderson MD [address] [place] [address] Referring Physician Colon and Rectal Surgery 12/03/1805/06 Abbi Ventura MD [address] [place] [address] Medical Oncologist/Customer Relations Consultant Medical Oncology 12/03/18 Montse Thompson MD [address] [place] [address] Consulting Physician Gynecologic Oncology 12/03/18 Lela Hardy MD PhD [address] [facility] [address] [place] [address] Radiation Oncologist Radiation Oncology 12/23/18 Trena Obando MD [address] [place] [address] Consulting Physician Neurology 09/18/21 documented as of this encounter
--- OUTSIDE RECORDS SUMMARY | 2024-04-24 14:48 | XMS_ITS | Encounter Summary ---
Author Organization [facility] Healthcare Address [address] [place] [address] Care Team Providers Care Chief Writer Name Role Phone Ravi Smith MD Primary Care Provider [phone] Aft, Kianna Machado MD PhD Unavailable [phone] Santiago Gilbert MD Unavailable [phone] Dmitry Sanderson MD Unavailable [phone] Abbi Vetnura MD Unavailable Montse Thompson MD Unavailable [phone] Lela Hardy MD PhD Unavailable Aft, Kianna Machado MD PhD Unavailable [phone] Encounter Details Date Type Department Care Team (Late st Contact Info) Description 04/03/2021 Telephone [facility] [address] [place] [address] Aracelis Crisostomo Social History Tobacco Use Types [...] file Legal Sex Female 1:06 AM PHOTOGRAPHIC RESTORER Gender Identity Not on file Sexual Orientation Not on file documented as of this encounter Miscellaneous Notes * Telephone Encounter - Aracelis Crisostomo - 04/03/2021 3:23 PM CST Attempted to contact patient in response to referral. Left vm with contact information for return call.04/03/21 OGRAPHIC RESTORER documented in this encounter Plan of Treatment Not on file documented as of this encounter Visit Diagnoses Not on filedocumented in this encounter Care Teams Chief Writer Relationship Specialty Start Date End Date Ravi Smith MD PCP - General 11/04/17 09/27/21 Aft, Kianna Machado MD PhD [address] [place] [address] Surgeon Surgical Oncology 11/22/17 Santiago Gilbert MD [address] [place] [address] Security Patrol Officer Gastroenterology 11/22/17 Dmitry Sanderson MD [address] [place] [address] Referring Physician Colon and Rectal Surgery 12/03/1805/06 Abbi Ventura MD [address] [place] [address] Medical Oncologist/Writer Editor Medical Oncology 12/03/18 Montse Thompson MD [address] [place] [address] Consulting Physician Gynecologic Oncology 12/03/18 Lela Hardy MD PhD [address] [place] [address] Radiation Oncologist Radiation Oncology 12/23/18 Aft, Kianna Machado MD PhD [address] [facility] [address] [place] [address] Surgeon Surgical Oncology 12/23/18 09/17/21 documented as of this encounter
--- OUTSIDE RECORDS SUMMARY | 2024-04-24 14:48 | XMS_ITS | Encounter Summary ---
Author Organization [facility] Address [address] [place] [address] Phone Care Team Providers Care Geomorphology Teacher Name Role Phone Aft, Kianna Machado MD PhD Unavailable [phone] Santiago Gilbert MD Unavailable [phone] Dmitry Sanderson MD Unavailable [phone] Abbi Ventura MD Unavailable Montse Thompson MD Unavailable [phone] Lela Hardy MD PhD Unavailable [phone] Trena Obando MD Unavailable [phone] Dat Benito DO Primary Care Provider [phone] Encounter Details Date Type Department Care Team (Late st Contact Info) Description 01/30/[address] [facility] Oncology [address] [place] [address] Abbi Ventura MD [address] [facility] [address] [place], [place] [id number] Malignant neoplasm of upper-inner quadrant of left [...] file Legal Sex Female 1:06 AM HEAD TELLER Gender Identity Not on file Sexual Orientation Not on file documented as of this encounter Plan of Treatment Not on file documented as of this encounter Results * (ABNORMAL) T3, free (02/01/2022 3:28 PM CDT) Free T3 1.8(L) 2.0 - 4.4 pg/mL [facility] Blood 02/01/2022 3:28 PM CDT 02/01/2022 6:09 PM CDT us Abbi Ventura MD LAB BLOOD ORDERABLES Final Resul t Performing Organization Address City/[facility]/ZIP Co de Phone Number [facility] [place] [address] * T4, free (02/01/2022 3:28 PM CDT) Free T4 1.27 0.90 - 1.70 ng/dL [facility] Blood 02/01/2022 3:28 PM CDT 02/01/2022 6:09 PM CDT Abbi Ventura MD LAB BLOOD ORDERABLES Final Resul t [facility] [place] [address] * (ABNORMAL) TSH (02/01/2022 3:28 PM CDT) Thyroid Stimulating Hormone 0.18(L) 0.30 - 4.20 mcIUnit/mL [facility] Blood 02/01/2022 3:28 PM CDT 02/01/2022 6:09 PM CDT Abbi Ventura MD LAB BLOOD ORDERABLES Final Resul t [facility] Department [place] [address] documented in this encounter Visit Diagnoses Diagnosis Malignant neoplasm of upper-inner quadrant of left breast in female, estrogen receptor negative (HCC)- Primary 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) Malignant neoplasm of descending colon documented in this encounter Care Teams Geomorphology Teacher Relationship Specialty Start Date End Date Dat Benito DO [address] [place] [address] PCP - General Internal Medicine 09/28/21 Aft, Kianna Machado MD PhD [address] [place] [address] Surgeon Surgical Oncology 11/22/17 Santiago Gilbert MD [address] [place] [address] Detention Attendant Gastroenterology 11/22/17 Dmitry Sanderson MD [address] [place] [address] Referring Physician Colon and Rectal Surgery 12/03/1805/06 Abbi Ventura MD [address] [place] [address] [address] [place] [address] Medical Oncologist/Sap Payroll Consultant Medical Oncology 12/03/18 Montse Thompson MD [address] [facility] [address] [place] [address] Consulting Physician Gynecologic Oncology 12/03/18 Lela Hardy MD PhD [address] [facility] [address] [place] [address] Radiation Oncologist Radiation Oncology 12/23/18 Trena Obando MD [facility] [address] [place] [address] Consulting Physician Neurology 09/18/21 documented as of this encounter
--- OUTSIDE RECORDS SUMMARY | 2024-04-24 14:48 | XMS_ITS | Encounter Summary ---
Author Organization [facility] Address [address] [place] [address] Phone Care Team Providers Care Certified Nurse Name Role Phone Ravi Smith MD Primary Care Provider [phone] Aft, Kianna Machado MD PhD Unavailable [phone] Santiago Gilbert MD Unavailable [phone] Dmitry Sanderson MD Unavailable [phone] Abbi Ventura MD Unavailable Montse Thompson MD Unavailable [phone] Lela Hardy MD PhD Unavailable [phone] Trena Obando MD Unavailable [phone] Dat Benito DO Primary Care Provider [phone] Reason for Referral * Diagnostic Imaging (Routine) - Closed Specialty Diagnoses / Procedures Referred By Contac t Referred To Contact Diagnoses Malignant neoplasm of upper-inner quadrant of left breast in female, estrogen receptor negative (HCC) Procedures Screening Mammogram Bilateral W Abbi Bueno MD [address] 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) Procedures MRI Abdomen Pelvis W WO Contrast Abbi Ventura MD [address] [place] [address] Phone: tel: fax: [facility] Referral ID Status Reason Start Date Expiration Date Visits Re quested Visits Authorized [id number] Closed 09/21/2021 10/21/2022 1 1 * MRI/CAT/PET Scan (Routine) - Closed Specialty Diagnoses / Procedures Referred By Contac t Referred To Contact Radiology Diagnoses Malignant neoplasm of upper-inner quadrant of left breast in female, 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) Procedures CT Chest Abdomen WO Contrast Abbi Ventura MD [address] [place] [address] Phone: tel: fax: [facility] Referral ID Status Reason Start Date Expiration Date Visits Re quested Visits Authorized [id number] Closed 09/21/2021 10/21/2022 1 1 Encounter Details Date Type Department Care Team (Late st Contact Info) Description 09/21/2021 1:30 PM CDT Office Visit [facility] [address] [place] [address] Abbi Ventura MD [address] [place] [address] Malignant neoplasm of upper-inner quadrant [...] on file 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 Zoom Telephonics My risk showed no mutation in MLH [...] Recent labs, radiology and pathology reviewed in [facility] ASSESSMENT: T4bN0 disease, Stage IIC colon adenocarcinoma- [...] her to call Dr. Gilbert, her local assembly mechanic, and I will also call his office to discuss f/u colonoscopy. Aleah Gerber will follow up as directed above, she was encouraged to call in the interim with questions or concerns. We will continue to monitor and review for side effects from treatment. Abbi Ventura MD media services specialist Division of Oncology Section of Medical Oncology [facility] Solar Installation Technician completed by using M*Modal Fluency Direct speaking software, therefore, transcriptionvariances may occur. documented in this encounter Plan of Treatment Not on file documented as of this encounter Results * CA 125 (02/01/2022 3:28 PM CDT) CA 125 ag 9.6 0.0 - 38.0 units/mL [facility] Comment: Interpretive Data The Bo CA 125 assay procedure was used. Results from different manufacturers or methods may not be comparable. Serial testing should be performed using the same method. Blood 02/01/2022 3:28 PM CDT 02/01/2022 6:09 PM CDT Abbi Ventura MD LAB BLOOD ORDERABLES Final Resul t Performing Organization Address [facility] [place] [address] * CEA (02/01/2022 3:28 PM CDT) Pathologist [facility] CEA 2.1 <=5.0 ng/mL [facility] Comment: Interpretive Data: Reference Range: [...] ORDERABLES Final Resul t Performing Organization Address [facility] [place] [address] * (ABNORMAL) Comprehensive metabolic panel (02/01/2022 3:28 PM CDT) Pathologist [facility] Sodium 139 135 - 145 mmol/L [facility] Comment:Testing performed by : [facility], [address] [place] [address] Potassium, pl 4.2 3.3 - 4.9 mmol/L [facility] Chloride 105 97 - 110 mmol/L [facility] CO2 25 22 - 32 mmol/L [facility] Anion gap 9 2 - 15 mmol/L [facility] BUN 21 8 - 25 mg/dL [facility] Creatinine 1.25(H) 0.60 - 1.10 mg/dL [facility] Glucose 192 70 - 199 mg/dL [facility] [...] 2017. Calcium 9.6 8.5 - 10.3 mg/dL [facility] Bilirubin, total 0.3 0.1 - 1.2 mg/dL [facility] Protein, pl 7.1 6.5 - 8.5 g/dL [facility] Albumin 4.1 3.5 - 5.0 g/dL [facility] Alk phos 108 40 - 130 Units/L [facility] ALT 12 7 - 45 Units/L [facility] AST 18 10 - 45 Units/L [facility] Blood 02/01/2022 3:28 PM CDT 02/01/2022 3:28 PM CDT us Abbi Ventura MD LAB BLOOD ORDERABLES Final Resul t [facility] One [facility] Department [place] [address] * (ABNORMAL) CBC with auto differential (02/01/2022 3:28 PM CDT) [facility] WBC 7.3 3.8 - 9.9 K/cumm [facility] Comment:Testing performed by : [facility], [address] [place] [address] Hgb 12.3 11.9 - 15.5 g/dL [facility] Comment:Testing performed by : [address] [address] Hct 38.3 35.6 - 45.5 % [facility] Comment:Testing performed by : [address] [address] Plt 180 150 - 400 K/cumm [facility] Comment:Testing performed by : [facility], [address] [facility] [address] MPV 9.4 9.1 - 12.3 fL [facility] RBC 4.25 3.90 - 5.20 M/cumm [facility] MCV 90.1 81.3 - 96.4 fL [facility] MCH 28.9 27.1 - 33.3 pg [facility] MCHC 32.1(L) 32.3 - 35.7 g/dL [facility] RDW CV 13.5 11.1 - 14.9 % [facility] RDW SD 43.8 35.7 - 48.1 fL [facility] NRBC abs 0.00 0.00 - 0.01 K/cumm [facility] Blood 02/01/2022 3:28 PM CDT 02/01/2022 3:28 PM CDT Abbi Ventura MD LAB BLOOD ORDERABLES Final Resul t [facility] One [facility] Department [place] [address] * CT Chest Abdomen WO Contrast (01/27/2022 [...] to prior imaging studies performed at [facility] on 11/05/2017, 08/11/2018 and 10/06/2020. [...] to prior imaging studies performed at [facility] on 11/05/2017, 08/11/2018 and 10/06/2020. [...] 02/01/2022 documented in this encounter Care Teams Certified Nurse Relationship Specialty Start Date End Date Ravi Smith MD PCP - General 11/04/17 09/27/21 Dat Benito DO [address] [place] [address] PCP - General Internal Medicine 09/28/21 Aft, Kianna Machado MD PhD [address] [place] [address] Surgeon Surgical Oncology 11/22/17 Santiago Gilbert MD [address] [place] [address] Automobile Damage Field Appraiser Gastroenterology 11/22/17 Dmitry Sanderson MD [address] [place] [address] Referring Physician Colon and Rectal Surgery 12/03/1805/06 Abbi Ventura MD [address] [place] [address] [address] [place] [address] Medical Oncologist/Civil Defense Director Medical Oncology 12/03/18 Montse Thompson MD [address] [facility] [address] [place] [address] Consulting Physician Gynecologic Oncology 12/03/18 Lela Hardy MD PhD [address] [place] [address] Radiation Oncologist Radiation Oncology 12/23/18 Trena Obando MD [address] [place] [address] Consulting Physician Neurology 09/18/21 documented as of this encounter
--- OUTSIDE RECORDS SUMMARY | 2024-04-24 14:48 | XMS_ITS | Encounter Summary ---
Author Organization [facility] Address [address] [place] [address] Phone Care Team Providers Care Assistant Case Manager Name Role Phone Ravi Smith MD Primary Care Provider [phone] Aft, Kianna Machado MD PhD Unavailable [phone] Santiago Gilbert MD Unavailable [phone] Dmitry Sanderson MD Unavailable [phone] Abbi Ventura MD Unavailable Montse Thompson MD Unavailable [phone] Lela Hardy MD PhD Unavailable [phone] Aft, Kianna Machado MD PhD Unavailable [phone] Encounter Details Date Type Department Care Team (Late st Contact Info) Description 05/18/2021 Telephone [facility] Oncology [address] [place] [address] Uriel Corral Social History Tobacco Use Types [...] file 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 Uriel Corral RN NG HOST documented in this encounter Plan of Treatment Not on file documented as of this encounter Visit Diagnoses Not on filedocumented in this encounter Care Teams Assistant Case Manager Relationship Specialty Start Date End Date Ravi Smith MD PCP - General 11/04/17 09/27/21 Aft, Kianna Machado MD PhD [address] [place] [address] Surgeon Surgical Oncology 11/22/17 Santiago Gilbert MD [address] [place] [address] Audit Clerk Gastroenterology 11/22/17 Dmitry Sanderson MD [address] [place] [address] Referring Physician Colon and Rectal Surgery 12/03/1805/06 Abbi Ventura MD [address] [place] [address] [address] [place] [address] Medical Oncologist/Yard Hostler Medical Oncology 12/03/18 Montse Thompson MD [address] [facility] [address] [place], [place] [id number] Consulting Physician Gynecologic Oncology 12/03/18 Lela Hardy MD PhD [address] [facility] [address] [place], [place] [id number] Radiation Oncologist Radiation Oncology 12/23/18 Aft, Kianna Machado MD PhD [address] [facility] [address] [place] [address] Surgeon Surgical Oncology 12/23/18 09/17/21 documented as of this encounter
--- OUTSIDE RECORDS SUMMARY | 2024-04-24 14:48 | XMS_ITS | Encounter Summary ---
Author Organization [facility] Address [address] [place] [address] Phone Care Team Providers Care Telephone Messenger Name Role Phone Aft, Kianna Machado MD PhD Unavailable [phone] Santiago Gilbert MD Unavailable [phone] Dmitry Sanderson MD Unavailable [phone] Abbi Ventura MD Unavailable Montse Thompson MD Unavailable [phone] Lela Hardy MD PhD Unavailable [phone] Trena Obando MD Unavailable [phone] Dat Benito DO Primary Care Provider [phone] Encounter Details Date Type Department Care Team (Late st Contact Info) Description 12/18/2021 Telephone [facility] Oncology [address] [place] [phone] Uriel Corral Social History Tobacco Use Types [...] on file 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 Gender Identity Not on file Sexual [...] filedocumented in this encounter Care Teams Telephone Messenger Relationship Specialty Start Date End Date Dat Benito DO [address] [place] [address] PCP - General Internal Medicine 09/28/21 Aft, Kianna Machado MD PhD [address] [place] [address] Surgeon Surgical Oncology 11/22/17 Santiago Gilbert MD [address] [place] [address] Class 1 Owner Operator Gastroenterology 11/22/17 Dmitry Sanderson MD [address] [place] [address] Referring Physician Colon and Rectal Surgery 12/03/1805/06 Abbi Ventura MD [address] [place] [address] [address] [place] [address] Medical Oncologist/Cut Off Sawyer [place] Medical Oncology 12/03/18 Montse Thompson MD [address] [place] [address] Consulting Physician Gynecologic Oncology 12/03/18 Lela Hardy MD PhD [address] [place] [address] Radiation Oncologist Radiation Oncology 12/23/18 Trena Obando MD [address] [place] [address] Consulting Physician Neurology 09/18/21 documented as of this encounter
--- OUTSIDE RECORDS SUMMARY | 2024-04-24 14:48 | XMS_ITS | Encounter Summary ---
Author Organization [facility] Address [address] [place] [address] Care Team Providers Care Statistical Machine Servicer Name Role Phone Ravi Smith MD Primary Care Provider [phone] Aft, Kianna Machado MD PhD Unavailable [phone] Santiago Gilbert MD Unavailable [phone] Dmitry Sanderson MD Unavailable [phone] Abbi Ventura MD Unavailable Montse Thompson MD Unavailable [phone] Lela Hardy MD PhD Unavailable [phone] Trena Obando MD Unavailable [phone] Encounter Details Date Type Department Care Team (Late st Contact Info) Description 09/19/2021 2:25 PM CDT Lab [address] [address] Social History Tobacco Use Types Packs/Day Years [...] file 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 Gender Identity Not on file Sexual Orientation Not on file documented as of this encounter Plan of Treatment Not on file documented as of this encounter Visit Diagnoses Not on filedocumented in this encounter Care Teams Statistical Machine Servicer Relationship Specialty Start Date End Date Ravi Smith MD PCP - General 11/04/17 09/27/21 Aft, Kianna Machado MD PhD [address] [place] [address] Surgeon Surgical Oncology 11/22/17 Santiago Gilbert MD [address] [place] [address] Assistant Professor Of Business Gastroenterology 11/22/17 Dmitry Sanderson MD [address] [place] [address] Referring Physician Colon and Rectal Surgery 12/03/1805/06 Abbi Ventura MD [address] [place] [address] [address] [place] [address] Medical Oncologist/Manpower Development Specialist Manager Medical Oncology 12/03/18 Montse Thompson MD [address] [place] [address] [address] [place] [address] Consulting Physician Gynecologic Oncology 12/03/18 Lela Hardy MD PhD [address] [facility] [address] [place] [address] Radiation Oncologist Radiation Oncology 12/23/18 Trena Obando MD [address] [place] [address] Consulting Physician Neurology 09/18/21 documented as of this encounter
--- OUTSIDE RECORDS SUMMARY | 2024-04-24 14:48 | XMS_ITS | Encounter Summary ---
Author Organization [facility] Address [address] [place] [address] Phone Care Team Providers Care Respite Coordinator Name Role Phone Ravi Smith MD Primary Care Provider [phone] Aft, Kianna Machado MD PhD Unavailable [phone] Santiago Gilbert MD Unavailable [phone] Dmitry Sanderson MD Unavailable [phone] Abbi Ventura MD Unavailable Montse Thompson MD Unavailable [phone] Lela Hardy MD PhD Unavailable [phone] Aft, Kianna Machado MD PhD Unavailable [phone] Reason for Visit * Reason Comments OP Infusion Encounter Details Date Type Department Care Team (Late st Contact Info) Description 03/27/2021 1:30 PM ELECTRIC MOTOR CONTROL ASSEMBLER Infusion [facility] Oncology [address] [place] [address] Dehydration (Primary Dx); Malignant neoplasm of upper-inner [...] file Legal 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 Female 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 Gender Identity Not on file Sexual Orientation Not on file documented as of this encounter Last Filed Vital Signs Vital Sign Reading Time Taken Comments Blood Pressure 115/64 03/27/2021 1:02 PM ELECTRIC MOTOR CONTROL ASSEMBLER Pulse 99 03/27/2021 1:02 PM ELECTRIC MOTOR CONTROL ASSEMBLER Temperature 36.3 ??C (97.4 ??F) 03/27/2021 1:02 PM CS T Respiratory Rate 20 03/27/2021 1:02 PM ELECTRIC MOTOR CONTROL ASSEMBLER Oxygen Saturation 98% 03/27/2021 1:02 PM ELECTRIC MOTOR CONTROL ASSEMBLER Inhaled Oxygen Concentration - - Weight 113.5 kg (250 lb 3.2 oz) 03/27/2021 1:02 PM ELECTRIC MOTOR CONTROL ASSEMBLER Height 173.2 cm (5' 8.19 ) 03/27/2021 1:02 PM CS T Body Mass Index 37.83 03/27/2021 1:02 PM ELECTRIC MOTOR CONTROL ASSEMBLER documented in this encounter Nursing Notes * Rosaura Orellana RN - 03/27/2021 1:30 PM CST Patient is here for IV fluids and tolerated well. Patient creatinine is improving. IV removed. Gauze and pressure dressing applied. Discharge in stable condition via ambulatory. TRIC MOTOR CONTROL ASSEMBLER documented in this encounter Plan of Treatment [...] 1 doseIndications:Dehydration New Bag 03/27/2021 1:27 PM ELECTRIC MOTOR CONTROL ASSEMBLER 1,000 mL 100 0 mL/hr documented in this encounter Orders Medications Ordered That Jefferson ht Not Have Been Administered Count Last Ordered Date First Ordered Date sodium chloride 0.9% bolus 1,000 mL 1 03/27 Appointment Requests Count Last Ordered Date Fi rst Ordered Date INFUSION APPT REQUEST 90 MIN 1 03/27/2021 documented in this encounter Care Teams Respite Coordinator Relationship Specialty Start Date End Date Ravi Smith MD PCP - General 11/04/17 09/27/21 AfKianna simpson MD PhD [address] [place] [address] Surgeon Surgical Oncology 11/22/17 Santiago Gilbert MD [address] [place] [address] Industrial Custodian Gastroenterology 11/22/17 Dmitry Sanderson MD [address] [place] [address] Referring Physician Colon and Rectal Surgery 12/03/1805/06 Abbi Ventura MD [address] [place] [address] [address] [place] [address] Medical Oncologist/Erp Consultant Medical Oncology 12/03/18 Montse Thompson MD [address] [place] [address] [address] [place] [address] Consulting Physician Gynecologic Oncology 12/03/18 Lela Hardy MD PhD [address] [place] [address] [address] [place] [address] Radiation Oncologist Radiation Oncology 12/23/18 Kianna Bunch MD PhD [facility] [address] [place] [address] Surgeon Surgical Oncology 12/23/18 09/17/21 documented as of this encounter
--- OUTSIDE RECORDS SUMMARY | 2024-04-24 14:48 | XMS_ITS | Encounter Summary ---
Author Organization [facility] Address [address] [place] [address] Phone Care Team Providers Care Guest Relations Executive Name Role Phone Ravi Smith MD Primary Care Provider [phone] Aft, Kianna Machado MD PhD Unavailable [phone] Santiago Gilbert MD Unavailable [phone] Dmitry Sanderson MD Unavailable [phone] Abbi Ventura MD Unavailable Montse Thompson MD Unavailable [phone] Lela Hardy MD PhD Unavailable Aft, Kianna Machado MD PhD Unavailable [phone] Encounter Details Date Type Department Care Team (Late st Contact Info) Description 07/04/2021 Telephone [facility] Oncology [address] [place] [address] Sue Valente CNA Social History Tobacco Use [...] file 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 PARTS SALESPERSON documented in this encounter Plan of Treatment Not on file documented as of this encounter Visit Diagnoses Not on filedocumented in this encounter Care Teams Guest Relations Executive Relationship Specialty Start Date End Date Ravi Smith MD PCP - General 11/04/17 09/27/21 Aft, Kianna Machado MD PhD [address] [place] [address] Surgeon Surgical Oncology 11/22/17 Santiago Gilbert MD [address] [place] [address] Senior Engineering Team Leader Gastroenterology 11/22/17 Dmitry Sanderson MD [address] [place] [address] Referring Physician Colon and Rectal Surgery 12/03/1805/06 Abbi Ventura MD [address] [place] [address] Medical Oncologist/Silk Screen Printer Machine Medical Oncology 12/03/18 Montse Thompson MD [address] [place] [address] Consulting Physician Gynecologic Oncology 12/03/18 Lela Hardy MD PhD [address] [place] [address] Radiation Oncologist Radiation Oncology 12/23/18 Aft, Kianna Machado MD PhD [address] [place] [address] Surgeon Surgical Oncology 12/23/18 09/17/21 documented as of this encounter
--- OUTSIDE RECORDS SUMMARY | 2024-04-24 14:48 | XMS_ITS | Encounter Summary ---
Author Organization [facility] Address [address] [facility] [address] [place] [address] Phone Care Team Providers Care Placement Interviewer Name Role Phone Ravi Smith MD Primary Care Provider [phone] Aft, Kianna Machado MD PhD Unavailable [phone] Santiago Gilbert MD Unavailable Dmitry Sanderson MD Unavailable [phone] Abbi Ventura MD Unavailable Montse Thompson MD Unavailable Lela Lopez MD PhD Unavailable [phone] Trena Obando MD Unavailable [phone] Reason for Visit * Reason Comments Follow-up Encounter Details Date Type Department Care Team (Late st Contact Info) Description 09/18/2021 2:00 PM CDT Office Visit [facility] Obstetrics and Gynecology [address] [facility] Advanced Medicine 13th [place] [address] [place] [address] Adela Chan, KAM [address] [facility] [phone] [place] [address] BRCA2 gene mutation positive in [...] on file 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 Gender Identity Not on file Sexual [...] ER-, [place]-, HER2-) - Signed by Lela Lopez MD [...] Breast Needle Localization partial mastectomy (L), Biopsy [place] Lymph Node With Lymphoscintigraphy (L), Insertion Port [...] Surgeon (Surgical Oncology) Santiago Gilbert MD as Field Contractor (Gastroenterology) Dmitry Sanderson MD as Referring Physician (Colon and Rectal Surgery) Abbi Ventura MD as Medical Oncologist/Personnel Assistant (Medical Oncology) Montse Thompson MD as Consulting [...] Abdomen and Pelvis LEEP (during clinic hours) GREY WASHER Ultrasound MRI Mammogram PET Initiate Survivoship Care [...] CDT 09/18/2021 5:36 PM CDT Narrative PATHOLOGY [facility] - 09/22/2021 5:14 PM CDT EPIC results best viewed via link to PDF [facility] Galilea Muñiz Laboratory of Surgical Pathology [address] [facility], [place] [address] Note to Patients: This report may contain [...] Gender: ??F : ??1955 (Age: 66) Address: ??[address] [place] [address] ??[address] Hospital #: ??[id number] Service: ??GREY WASHER Location: ?? Patient Type: ??[facility] SPECIMEN Taken: ??09/18/2021 Received: ??09/18/2021 [...] 70. ??This HPV test was performed at [facility] in [place], [place] utilizing the Gen-Probe Aptima assay. This specimen has been rescreened in accordance with this laboratory's Verification Specialist Program. j/09/22/2021 17:14 IMTIAZ Gray(ASCP) Report Electronically Reviewed and Signed Out By PATTIE Montana(ASCP), [facility] 09/22/2021 17:14:55 Cervicovaginal Cytology (Pap Test) Disclaimer: [...] Pap. The HPV test was performed by [facility], [address] [place] [address]. Report Images and scanned documents, if included only viewable in PDF version The performance characteristics of some immunohistochemical stains, in-situ hybridization and fluorescence in-situ hybridization tests and immunophenotyping by flow cytometry cited in this report (if any) were determined by the Surgical Pathology Department at [facility] as part of an ongoing quality control manager program and in compliance with federally [...] determined by the Surgical Pathology Department of [facility]. ??It has not been cleared or approved by the U. S. Food and Drug Administration. Adela Chan NP LAB CYTOLOGY ORDERABLES Bethanie wesley Result PATHOLOGY [facility] 3rd Floor [place], [place] [phone] documented in this encounter Visit Diagnoses Diagnosis [...] 022 documented in this encounter Care Teams Placement Interviewer Relationship Specialty Start Date End Date Ravi Smith MD PCP - General 11/04/17 09/27/21 Aft, Kianna Machado MD PhD [address] [place] [address] Surgeon Surgical Oncology 11/22/17 Santiago Gilbert MD [address] [place] [address] Field Contractor Gastroenterology 11/22/17 Dmitry Sanderson MD [address] [place] [address] Referring Physician Colon and Rectal Surgery 12/03/1805/06 Abbi Ventura MD [address] [place] [address] [address] [place] [address] Medical Oncologist/Personnel Assistant Medical Oncology 12/03/18 Montse Thompson MD [address] [facility] [address] [place], [place] [address] Consulting Physician Gynecologic Oncology 12/03/18 Lela Lopez MD PhD [address] [facility] [address] [place], [place] [address] Radiation Oncologist Radiation Oncology 12/23/18 Trena Obando MD [address] [place], [place] [address] Consulting Physician Neurology 09/18/21 documented as of this encounter
--- OUTSIDE RECORDS SUMMARY | 2024-04-24 14:48 | XMS_ITS | Encounter Summary ---
Author Organization [facility] Address [address] [place] [address] Phone Care Team Providers Care Ep Specialist Name Role Phone Ravi Smith MD Primary Care Provider [phone] Aft, Kianna Machado MD PhD Unavailable [phone] Santiago Gilbert MD Unavailable [phone] Dmitry Sanderson MD Unavailable [phone] Abbi Ventura MD Unavailable Montse Thompson MD Unavailable [phone] Lela Hardy MD PhD Unavailable [phone] Aft, Kianna Machado MD PhD Unavailable [phone] Encounter Details Date Type Department Care Team (Late st Contact Info) Description 03/27/2021 12:30 PM WOOL WASHING MACHINE OPERATOR Lab [facility] Oncology [address] [place] [address] Dehydration; Malignant neoplasm of upper-inner quadrant of [...] file Legal Sex Female 1:06 AM 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 MACHINE 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 Gender Identity Not on file Sexual Orientation Not on file documented as of this encounter Plan of Treatment Not on file documented as of this encounter Procedures Procedure Name Priority Date/Time Associated Diagnosis Comments EGFR STAT 03/27/2021 1:13 PM WOOL WASHING MACHINE OPERATOR Dehydration Malignant neoplasm of upper-inner quadrant of left breast in female, 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) (HCC) BASIC METABOLIC PANEL STAT 03/27/2021 1:13 PM WOOL WASHING MACHINE OPERATOR Dehydration Malignant neoplasm of upper-inner quadrant of left breast in female, 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) (HCC) documented in this encounter Results * (ABNORMAL) eGFR (03/27/2021 1:13 PM WOOL WASHING MACHINE OPERATOR) eGFR 32(L) 90 - 130 mL/min/1.7 3 m2 [facility] Comment: Interpretive Data Reference Interval [...] last reviewed 2020 Blood 03/27/2021 1:13 PM WOOL WASHING MACHINE OPERATOR 03/27/2021 1:16 PM WOOL WASHING MACHINE OPERATOR Abbi Vetnura MD LAB BLOOD ORDERABLES Final Resul t [facility] Department [place] [address] * (ABNORMAL) Basic metabolic panel (03/27/2021 1:13 PM WOOL WASHING MACHINE OPERATOR) Pathologist [facility] Sodium 138 135 - 145 mmol/L [facility] Potassium, pl 3.9 3.3 - 4.9 mmol/L [facility] Chloride 104 97 - 110 mmol/L [facility] CO2 27 22 - 32 mmol/L [facility] Anion gap 7 2 - 15 mmol/L [facility] BUN 26(H) 8 - 25 mg/dL [facility] Creatinine 1.70(H) 0.60 - 1.10 mg/dL [facility] Glucose 135 70 - 199 mg/dL [facility] [...] Calcium 9.5 8.5 - 10.3 mg/dL [facility] Blood 03/27/2021 1:13 PM WOOL WASHING MACHINE OPERATOR 03/27/2021 1:16 PM WOOL WASHING MACHINE OPERATOR Narrative [facility] - 03/27/2021 1:56 PM WOOL WASHING MACHINE OPERATOR Please Draw Post IVFS on Saturday03/27/21. Thank you! Abbi Ventura MD LAB BLOOD ORDERABLES Final Resul t [facility] Department [place] [address] documented in this encounter Visit Diagnoses Diagnosis Dehydration Malignant neoplasm of upper-inner quadrant of left breast in female, estrogen receptor negative (HCC) documented in this encounter Orders Appointment Requests Count Last Ordered Date Fi rst Ordered Date ONCBCN LAB APPOINTMENT 1 03/27/2021 documented in this encounter Care Teams Ep Specialist Relationship Specialty Start Date End Date Ravi Smith MD PCP - General 11/04/17 09/27/21 Aft, Kianna Machado MD PhD [address] [place] [address] Surgeon Surgical Oncology 11/22/17 Santiago Gilbert MD [address] [place] [address] Orthopedic Coder Gastroenterology 11/22/17 Dmitry Sanderson MD [address] [place] [address] Referring Physician Colon and Rectal Surgery 12/03/1805/06 Abbi Ventura MD [address] [place] [address] Medical Oncologist/Fishing Rod Marker Medical Oncology 12/03/18 Montse Thompson MD [address] [place] [address] Consulting Physician Gynecologic Oncology 12/03/18 Lela Hardy MD PhD [address] [place] [address] Radiation Oncologist Radiation Oncology 12/23/18 Aft, Kianna Machado MD PhD [address] [place] [address] Surgeon Surgical Oncology 12/23/18 09/17/21 documented as of this encounter
--- OUTSIDE RECORDS SUMMARY | 2024-04-24 14:48 | XMS_ITS | Encounter Summary ---
Author Organization [facility] Healthcare Address [address] [place] [address] Care Team Providers Care Pesticide Use Medical Coordinator Name Role Phone Ravi Smith MD Primary Care Provider [phone] Aft, Kianna Machado MD PhD Unavailable [phone] Santiago Gilbert MD Unavailable [phone] Dmitry Sanderson MD Unavailable [phone] Abbi Ventura MD Unavailable Montse Thompson MD Unavailable [phone] Lela Hardy MD PhD Unavailable [phone] Aft, Kianna Machado MD PhD Unavailable [phone] Reason for Referral * MRI/CAT/PET Scan (Routine) - Closed Specialty Diagnoses / Procedures [facility] Referred To Contact Radiology Diagnoses Malignant neoplasm of upper-inner quadrant of left breast in female, estrogen receptor negative (HCC) Procedures MRI Abdomen Pelvis W WO Contrast Abbi Ventura MD [address] [facility] [address] [place] [address] Phone: tel: fax: [facility] Referral ID Status Reason Start Date Expiration Date Visits Re quested Visits Authorized [id number] Closed 03/28/2021 04/27/2022 1 1 [employer] Reason for Visit * MRI/CAT/PET Scan (Routine) - Closed Specialty Diagnoses / Procedures Referred By Vijaya t Referred To Contact Radiology Diagnoses Malignant neoplasm of upper-inner quadrant of left breast in female, estrogen receptor negative (HCC) Procedures MRI Abdomen Pelvis W WO Contrast Abbi Ventura MD [address] [facility] [address] [place] [address] Phone: tel: fax: [facility] Referral ID Status Reason Start Date Expiration Date Visits Re quested Visits Authorized [id number] Closed 03/28/2021 04/27/2022 1 1 Encounter Details Date Type Department Care Team (Latest Contact Info) Description 04/25/2021 3:21 PM [employer] - 04/25/2021 11:59 PM [employer] Hospital Encounter [facility] [address] [place] [address] Abbi Ventura MD [address] [facility] [address] [place] [address] Malignant neoplasm of upper-inner quadrant [...] on file Legal Sex Female 1:06 AM [employer] CONTR[employer] WARN[employer] Gender Identity Not on file Sexual Orientation [...] Read Routine (OP Routine) 04/25/2021 4:40 PM [employer] Malignant neoplasm of upper-inner quadrant of left breast in female, estrogen receptor negative (CMS/HCC) (HCC) documented in this encounter Results * MRI Abdomen Pelvis W WO Contrast (04/25/2021 4:40 PM [employer]) Anatomical Region Laterality Modality Body N/A Magnetic Resonan ce 04/26/2021 9:42 AM [employer] Impressions 04/26/2021 12:28 PM [employer] 1. ??No imaging evidence of metastatic disease in the abdomen or pelvis. Dictated by: Cherise Mendoza M.D. The radiology attending physician has personally reviewed this study, and had reviewed and/or edited this written report and agrees with it. Electronically signed by: Jose Daniels M.D. Narrative 04/26/2021 12:28 PM [employer] EXAMINATION: 1. MAGNETIC RESONANCE IMAGING OF THE [...] by: Jose Daniels M.D. Abbi Ventura MD [facility] [place]ED[place] Final Result documented in [...] 1 dose Contrast Given 04/25/2021 4:21 PM [employer] 20 mL sodium chloride 0.9% flush 125 mL 125 mL, intravenous, As needed, line care, Starting on Sat04/25/21 at 1621 Given 04/25/2021 4:21 PM [employer] 125 mL documented in this encounter Care Teams Pesticide Use Medical Coordinator Relationship Specialty Start Date End Date Ravi Smith MD PCP - General 11/04/17 09/27/21 Aft, Kianna Machado MD PhD [address] [place], [place] [id number] Surgeon Surgical Oncology 11/22/17 Santiago Gilbert MD [address] [place] [address] Outside Sales Consultant Gastroenterology 11/22/17 Dmitry Sanderson MD [address] [place] [address] Referring Physician Colon and Rectal Surgery 12/03/1805/06 [facility] MD [facility] [address] [place], [place] [id number] Medical Oncologist/Chauffeur Airport [employer]ousine Medical Oncology 12/03/18 Montse Thompson MD [address] [place], [place] [id number] Consulting Physician Gynecologic Oncology 12/03/18 Lela Hardy MD PhD [address] [place], [place] [id number] Radiation Oncologist Radiation Oncology 12/23/18 Aft, Kianna Machado MD PhD [address] [facility] [address] [place] [address] Surgeon Surgical Oncology 12/23/18 09/17/21 documented as of this encounter
--- OUTSIDE RECORDS SUMMARY | 2024-04-24 14:48 | XMS_ITS | Encounter Summary ---
Author Organization [facility] [employer] [facility] Address [address] [place] [address] Phone Care Team Providers Care Truck Rental Clerk Name Role Phone Aft, Kianna Machado MD PhD Unavailable [phone] Santiago Gilbert MD Unavailable [phone] Dmitry Sanderson MD Unavailable [phone] Abbi Ventura MD Unavailable Montse Thompson MD Unavailable [phone] Lela Hardy MD PhD Unavailable [phone] Trena Obando MD Unavailable [phone] Dat Benito DO Primary Care Provider [phone] Encounter Details Date Type Department Care Team (Late st Contact Info) Description 11/07/2021 Orders Only [facility] Pulmonary [address] [facility] Advanced Medicine 8th [place] [address] [place] [id number] Tamra Zapata RMA Social History Tobacco Use [...] on file 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 Gender Identity Not on file Sexual [...] 10/18/2021 added in this encounter Care Teams Truck Rental Clerk Relationship Specialty Start Date End Date Dat Benito DO [address] [place] [address] PCP - General Internal Medicine 09/28/21 Aft, Kianna Machado MD PhD [address] [place] [address] Surgeon Surgical Oncology 11/22/17 Santiago Gilbert MD [address] [place] [address] Wellness Program Administrator Gastroenterology 11/22/17 Dmitry Sanderson MD [address] [place] [address] Referring Physician Colon and Rectal Surgery 12/03/1805/06 Abbi Ventura MD [address] [facility] [address] [place] [address] Medical Oncologist/Building Dismantler Medical Oncology 12/03/18 Montse Thompson MD [address] [facility] [address] [place] [address] Consulting Physician Gynecologic Oncology 12/03/18 Lela Hardy MD PhD [address] [facility] [address] [place] [address] Radiation Oncologist Radiation Oncology 12/23/18 Trena Obando MD [address] [place], [place] [address] Consulting Physician Neurology 09/18/21 documented as of this encounter
--- OUTSIDE RECORDS SUMMARY | 2024-04-24 14:48 | XMS_ITS | Encounter Summary ---
Author Organization [facility] Address [address] [place] [address] Phone Care Team Providers Care Research Editor Name Role Phone Aft, Kianna Machado MD PhD Unavailable [phone] Santiago Gilbert MD Unavailable [phone] Dmitry Sanderson MD Unavailable [phone] Abbi Ventura MD Unavailable Montse Thompson MD Unavailable [phone] Lela Hardy MD PhD Unavailable [phone] Trena Obando MD Unavailable [phone] Dat Benito DO Primary Care Provider [phone] Encounter Details Date Type Department Care Team (Late st Contact Info) Description 09/29/2021 Telephone [facility] Oncology [address] [place] [address] Uriel Corral Social History Tobacco Use Types [...] on file 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 Gender Identity Not on file Sexual [...] on filedocumented in this encounter Care Teams Research Editor Relationship Specialty Start Date End Date Dat Benito DO [address] [place] [address] PCP - General Internal Medicine 09/28/21 Aft, Kianna Machado MD PhD [address] [place] [address] Surgeon Surgical Oncology 11/22/17 Santiago Gilbert MD [address] [place] [address] Log Scaler Gastroenterology 11/22/17 Dmitry Sanderson MD [address] [place] [address] Referring Physician Colon and Rectal Surgery 12/03/1805/06 Abbi Ventura MD [address] [place] [address] [address] [place] [address] Medical Oncologist/Dispensary Clerk Medical Oncology 12/03/18 Montse Thompson MD [address] [facility] [address] [place], [place] [id number] Consulting Physician Gynecologic Oncology 12/03/18 Lela Hardy MD PhD [address] [facility] [address] [place], [place] [id number] Radiation Oncologist Radiation Oncology 12/23/18 Trena Obando MD [address] [place], [place] [address] Consulting Physician Neurology 09/18/21 documented as of this encounter
--- OUTSIDE RECORDS SUMMARY | 2024-04-24 14:48 | XMS_ITS | Encounter Summary ---
Author Organization [facility] Address [address] [place] [address] Phone Care Team Providers Care Field Crop Farming Supervisor Name Role Phone Aft, Kianna Machado MD PhD Unavailable [phone] Santiago Gilbert MD Unavailable [phone] Dmitry Sanderson MD Unavailable [phone] Abbi Ventura MD Unavailable Montse Thompson MD Unavailable [phone] Lela Hardy MD PhD Unavailable [phone] Trena Obando MD Unavailable [phone] Dat Benito DO Primary Care Provider [phone] Encounter Details Date Type Department Care Team (Late st Contact Info) Description 01/30/[address] 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 Gender Identity Not on file Sexual [...] on filedocumented in this encounter Care Teams Field Crop Farming Supervisor Relationship Specialty Start Date End Date Dat Benito DO [address] [place] [address] PCP - General Internal Medicine 09/28/21 Aft, Kianna Machado MD PhD [address] [place] [address] Surgeon Surgical Oncology 11/22/17 Santiago Gilbert MD [address] [place] [address] Migratory Farm Hand Gastroenterology 11/22/17 Dmitry Sanderson MD [address] [place] [address] Referring Physician Colon and Rectal Surgery 12/03/1805/06 Abbi Ventura MD [facility] [address] [place] [address] Medical Oncologist/Air Analysis Technician Medical Oncology 12/03/18 Montse Thompson MD [facility] [address] [place] [address] Consulting Physician Gynecologic Oncology 12/03/18 Lela Hardy MD PhD [facility] [address] [place] [address] Radiation Oncologist Radiation Oncology 12/23/18 Trena Obando MD [address] [place] [address] Consulting Physician Neurology 09/18/21 documented as of this encounter
--- OUTSIDE RECORDS SUMMARY | 2024-04-24 14:48 | XMS_ITS | Encounter Summary ---
Author Organization [facility] Address [address] [place] [address] Phone Care Team Providers Care Physical Therapy Assistant Name Role Phone Aft, Kianna Machado MD PhD Unavailable [phone] Santiago Gilbetr MD Unavailable [phone] Dmitry Sanderson MD Unavailable [phone] Abbi Ventura MD Unavailable Montse Thompson MD Unavailable [phone] Lela Hardy MD PhD Unavailable [phone] Trena Obando MD Unavailable [phone] Dat Benito DO Primary Care Provider [phone] Encounter Details Date Type Department Care Team (Late st Contact Info) Description 12/04/2021 Telephone [facility] Oncology [address] [place] [address] Uriel Corral Social History Tobacco Use Types [...] on file 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 Gender Identity Not on file Sexual [...] on filedocumented in this encounter Care Teams Physical Therapy Assistant Relationship Specialty Start Date End Date Dat Benito DO [address] [place] [address] PCP - General Internal Medicine 09/28/21 Aft, Kianna Machado MD PhD [address] [place] [address] Surgeon Surgical Oncology 11/22/17 Santiago Gilbert MD [address] [place] [address] Semiconductor Lab Technician Gastroenterology 11/22/17 Dmitry Sanderson MD [address] [place] [address] Referring Physician Colon and Rectal Surgery 12/03/1805/06 Abbi Ventura MD [address] [facility] [address] [place] [address] Medical Oncologist/Textile Chemist Medical Oncology 12/03/18 Montse Thompson MD [address] [facility] [address] [place] [address] Consulting Physician Gynecologic Oncology 12/03/18 Lela Hardy MD PhD [address] [facility] [address] [place] [address] Radiation Oncologist Radiation Oncology 12/23/18 Trena Obando MD [address] [place], [place] [address] Consulting Physician Neurology 09/18/21 documented as of this encounter
--- OUTSIDE RECORDS SUMMARY | 2024-04-24 14:48 | XMS_ITS | Encounter Summary ---
Author Organization [facility] Address [address] [place] [address] Phone Care Team Providers Care Trauma Therapist Name Role Phone Aft, Kianna Machado MD PhD Unavailable [phone] Santiago Gilbert MD Unavailable [phone] Dmitry Sanderson MD Unavailable [phone] Abbi Ventura MD Unavailable Montse Thompson MD Unavailable [phone] Lela Hardy MD PhD Unavailable [phone] Trena Obando MD Unavailable [phone] Dat Benito DO Primary Care Provider [phone] Encounter Details Date Type Department Care Team (Late st Contact Info) Description 10/09/2021 Telephone [facility] Oncology [address] [place] [phone] Dolores Cochran, RN Social History Tobacco Use [...] on file Legal Sex Female 1:06 AM STUDENT ADVISOR Gender Identity Not on file Sexual [...] on filedocumented in this encounter Care Teams Trauma Therapist Relationship Specialty Start Date End Date Dat Benito DO [address] [place] [address] PCP - General Internal Medicine 09/28/21 Aft, Kianna Machado MD PhD [address] [place] [address] Surgeon Surgical Oncology 11/22/17 Santiago Gilbert MD [address] [place] [address] Sales Correspondence Clerk Gastroenterology 11/22/17 Dmitry Sanderson MD [address] [place] [address] Referring Physician Colon and Rectal Surgery 12/03/1805/06 Abbi Ventura MD [address] [place] [address] [address] [place] [address] Medical Oncologist/Smoke Eater Medical Oncology 12/03/18 Montse Thompson MD [address] [facility] [address] [place] [address] Consulting Physician Gynecologic Oncology 12/03/18 Lela Hardy MD PhD [address] [facility] [address] [place] [address] Radiation Oncologist Radiation Oncology 12/23/18 Trena Obando MD [address] [place] [address] Consulting Physician Neurology 09/18/21 documented as of this encounter
--- OUTSIDE RECORDS SUMMARY | 2024-04-24 14:48 | XMS_ITS | Encounter Summary ---
Author Organization [facility] Address [address] [place] [address] Phone Care Team Providers Care Pigment Supplier Name Role Phone Ravi Smith MD Primary Care Provider [phone] Aft, Kianna Machado MD PhD Unavailable [phone] Santiago Gilbert MD Unavailable [phone] Dmitry Sanderson MD Unavailable [phone] Abbi Ventura MD Unavailable Montse Thompson MD Unavailable [phone] Lela Hardy MD PhD Unavailable [phone] Trena Obando MD Unavailable [phone] Encounter Details Date Type Department Care Team (Late st Contact Info) Description 09/26/2021 Telephone [facility] Obstetrics and Gynecology [address] [facility] Advanced Medicine 13th [place] [address] [place] [phone] Evon Arreola RN Social History Tobacco Use [...] on file Legal 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[employer]ORING Gender Identity Not on file Sexual Orientation [...] on filedocumented in this encounter Care Teams Pigment Supplier Relationship Specialty Start Date End Date Ravi Smith MD PCP - General 11/04/17 09/27/21 Aft, Kianna Machado MD PhD [address] [place] [address] Surgeon Surgical Oncology 11/22/17 Santiago Gilbert MD [address] [place] [address] Window Shade Cutter Gastroenterology 11/22/17 Dmitry Sanderson MD [address] [place] [address] Referring Physician Colon and Rectal Surgery 12/03/1805/06 Abbi Ventura MD [address] [place] [address] [address] [place] [address] Medical Oncologist/Regional Sales Director Medical Oncology 12/03/18 Montse Thompson MD [address] [facility] [address] [place] [address] Consulting Physician Gynecologic Oncology 12/03/18 Lela Hardy MD PhD [address] [facility] [address] [place] [address] Radiation Oncologist Radiation Oncology 12/23/18 Trena Obando MD [facility] [address] [place] [address] Consulting Physician Neurology 09/18/21 documented as of this encounter
--- OUTSIDE RECORDS SUMMARY | 2024-04-24 14:48 | XMS_ITS | Encounter Summary ---
Author Organization [facility] Address [address] [place] [address] Phone Care Team Providers Care Senior Merchandiser Name Role Phone Aft, Kianna Machado MD PhD Unavailable [phone] Santiago Gilbert MD Unavailable [phone] Dmitry Sanderson MD Unavailable [phone] Abbi Ventura MD Unavailable Montse Thompsno MD Unavailable [phone] Lela Hardy MD PhD Unavailable [phone] Trena Obando MD Unavailable [phone] Dat Benito DO Primary Care Provider [phone] Encounter Details Date Type Department Care Team (Late st Contact Info) Description 02/01/2022 3:00 PM CDT Lab [facility] Oncology [address] [place] [address] Malignant neoplasm of upper-inner quadrant of left [...] on file 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 Gender Identity Not on file Sexual Orientation [...] 02/01/2022 documented in this encounter Care Teams Senior Merchandiser Relationship Specialty Start Date End Date Dat Benito DO [address] [place] [address] PCP - General Internal Medicine 09/28/21 Aft, Kianna Machado MD PhD [address] [place] [address] Surgeon Surgical Oncology 11/22/17 Santiago Gilbert MD [address] [place] [address] Network Intern Gastroenterology 11/22/17 Dmitry Sanderson MD [address] [place] [address] Referring Physician Colon and Rectal Surgery 12/03/1805/06 Abbi Ventura MD [address] [place] [address] [address] [place] [address] Medical Oncologist/Microsoft Dynamics Ax Consultant Medical Oncology 12/03/18 Montse Thompson MD 10 [facility] [address] [place], [place] [id number] Consulting Physician Gynecologic Oncology 12/03/18 Lela Hardy MD PhD [address] [facility] [address] [place] [address] Radiation Oncologist Radiation Oncology 12/23/18 Trena Obando MD [address] [place] [address] Consulting Physician Neurology 09/18/21 documented as of this encounter
--- OUTSIDE RECORDS SUMMARY | 2024-04-24 14:48 | XMS_ITS | Encounter Summary ---
Author Organization [facility] Healthcare Address [address] [place] [address] Care Team Providers Care Paraffin Plant Operator Name Role Phone Ravi Smith MD Primary Care Provider [phone] Aftatiana, Kianna Machado MD PhD Unavailable [phone] Santiago Gilbert MD Unavailable [phone] Dmitry Sanderson MD Unavailable [phone] Abbi Ventura MD Unavailable Montse Thompson MD Unavailable [phone] Lela Hardy MD PhD Unavailable [phone] Trena Obando MD Unavailable [phone] Encounter Details Date Type Department Care Team (Late st Contact Info) Description 09/21/2021 1:50 PM CDT Lab [address] [address] Malignant neoplasm of upper-inner quadrant of left [...] on file 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 Gender Identity Not on file Sexual [...] LAB BLOOD ORDERABLES Final Resul t [facility] One [facility] Department [place] [address] * Differential, auto (09/21/2021 1:55 PM CDT) Neutrophil abs 5.2 1.7 - 6.5 K/cumm [facility] Comment:Testing performed by : [facility], [address] [place] [address] Imm gran abs 0.0 0.0 - 0.1 K/cumm [facility] Lymphocyte abs 1.2 0.8 - 3.3 K/cumm [facility] Monocyte abs 0.5 0.2 - 0.8 K/cumm [facility] Eosinophil abs 0.3 0.0 - 0.5 K/cumm [facility] Basophil abs 0.1 0.0 - 0.1 K/cumm [facility] Neutrophil pct 71.1 % [facility] Comment: Interpretive Data Percent cell count reference ranges are not reported, since discordance with absolute values may lead to misinterpretation of CBC data. Current Interpretive Data was last revised on 2017. Imm gran pct 0.4 % [facility] Comment: Interpretive Data Percent cell count reference ranges are not reported, since discordance with absolute values may lead to misinterpretation of CBC data. Current Interpretive Data was last revised on 2017. Lymphocyte pct 16.8 % [facility] Comment: Interpretive Data Percent cell count reference ranges are not reported, since discordance with absolute values may lead to misinterpretation of CBC data. Current Interpretive Data was last revised on 2017. Monocyte pct 6.7 % [facility] Comment: Interpretive Data Percent cell count reference ranges are not reported, since discordance with absolute values may lead to misinterpretation of CBC data. Current Interpretive Data was last revised on 2017. Eosinophil pct 4.0 % [facility] Comment: Interpretive Data Percent cell count reference ranges are not reported, since discordance with absolute values may lead to misinterpretation of CBC data. Current Interpretive Data was last revised on 2017. Basophil pct 1.0 % [facility] Comment: Interpretive Data Percent cell count reference ranges are not reported, since discordance with absolute values may lead to misinterpretation of CBC data. Current Interpretive Data was last revised on 2017. Blood 09/21/2021 1:55 PM CDT 09/21/2021 1:57 PM CDT us Abbi Ventura MD LAB BLOOD ORDERABLES Final Resul t [facility] One [facility] Department [place] [address] * CA 125 (09/21/2021 1:55 PM CDT) Pathologist [facility] CA 125 ag 9.7 0.0 - 38.0 units/mL [facility] Comment: Interpretive Data The Bo CA 125 assay procedure was used. Results from different manufacturers or methods may not be comparable. Serial testing should be performed using the same method. Blood 09/21/2021 1:55 PM CDT 09/21/2021 3:28 PM CDT us [facility] Ac Thompson MD LAB BLOOD ORDERABLES Fin al Result [facility] One [facility] Department [place] [address] * (ABNORMAL) CBC with auto differential (09/21/2021 1:55 PM CDT) [facility] WBC 7.3 3.8 - 9.9 K/cumm [facility] Comment:Testing performed by : [address] [address] Hgb 12.0 11.9 - 15.5 g/dL [facility] Comment:Testing performed by : [address] [address] Hct 37.4 35.6 - 45.5 % [facility] Comment:Testing performed by : [address] [address] Plt 200 150 - 400 K/cumm [facility] Comment:Testing performed by : [address] [address] MPV 9.7 9.1 - 12.3 fL [facility] RBC 3.97 3.90 - 5.20 M/cumm [facility] MCV 94.2 81.3 - 96.4 fL [facility] MCH 30.2 27.1 - 33.3 pg [facility] MCHC 32.1(L) 32.3 - 35.7 g/dL [facility] RDW CV 13.2 11.1 - 14.9 % [facility] RDW SD 45.3 35.7 - 48.1 fL [facility] NRBC abs 0.00 0.00 - 0.01 K/cumm [facility] Blood 09/21/2021 1:55 PM CDT 09/21/2021 1:57 PM CDT Abbi Ventura MD LAB BLOOD ORDERABLES Final Resul t Performing Organization Address [facility] de Phone Number [facility] [place] [address] * CEA (09/21/2021 1:55 PM CDT) CEA 1.8 <=5.0 ng/mL [facility] Comment: Interpretive Data: Reference Range: [...] ORDERABLES Final Resul t Performing Organization Address [facility] de Phone Number [facility] [place] [address] * (ABNORMAL) Comprehensive metabolic panel (09/21/2021 1:55 PM CDT) Sodium 139 135 - 145 mmol/L [facility] Comment:Testing performed by : [facility], [address] [place] [address] Potassium, pl 4.0 3.3 - 4.9 mmol/L [facility] Chloride 107 97 - 110 mmol/L [facility] CO2 23 22 - 32 mmol/L [facility] Anion gap 9 2 - 15 mmol/L [facility] BUN 20 8 - 25 mg/dL [facility] Creatinine 1.51(H) 0.60 - 1.10 mg/dL [facility] Glucose 121 70 - 199 mg/dL [facility] Calcium 9.6 8.5 - 10.3 mg/dL [facility] Bilirubin, total 0.4 0.1 - 1.2 mg/dL [facility] Protein, pl 7.0 6.5 - 8.5 g/dL [facility] Albumin 4.4 3.5 - 5.0 g/dL [facility] Alk phos 111 40 - 130 Units/L [facility] ALT 13 7 - 45 Units/L [facility] AST 22 10 - 45 Units/L [facility] Blood 09/21/2021 1:55 PM CDT 09/21/2021 1:57 PM CDT us Abbi Ventura MD LAB BLOOD ORDERABLES Final Resul t [facility] One [facility] Department [place] [address] documented in this encounter Visit Diagnoses Diagnosis Malignant neoplasm of upper-inner quadrant of left breast in female, 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 [address] [place] [address] Medical Oncologist/Decontamination Worker Medical Oncology 12/03/18 Montse Thompson MD 10 [facility] [address] [place] [address] Consulting Physician Gynecologic Oncology 12/03/18 Lela Hardy MD PhD 10 [facility] [address] [place] [address] Radiation Oncologist Radiation Oncology 12/23/18 Trena Obando MD [address] [place] [address] Consulting Physician Neurology 09/18/21 documented as of this encounter
--- OUTSIDE RECORDS SUMMARY | 2024-04-24 14:48 | XMS_ITS | Encounter Summary ---
Author Organization [facility] [employer] [facility] Address [address] [place] [address] Phone Care Team Providers Care Machine Grinder Name Role Phone Ravi Smith MD Primary Care Provider [phone] Aft, Kianna Machado MD PhD Unavailable [phone] Santiago Gilbert MD Unavailable [phone] Dmitry Sanderson MD Unavailable [phone] Abbi Ventura MD Unavailable Montse Thompson MD Unavailable [phone] Lela Hardy MD PhD Unavailable [phone] Aft, Kianna Machado MD PhD Unavailable [phone] Encounter Details Date Type Department Care Team (Late st Contact Info) Description 03/24/2021 Orders Only [facility] Oncology [address] [place] [address] Uriel Corral Social History Tobacco Use Types [...] on file 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 Gender Identity Not on file Sexual Orientation Not on file documented as of this encounter Plan of Treatment Not on file documented as of this encounter Visit Diagnoses Not on filedocumented in this encounter Care Teams Machine Grinder Relationship Specialty Start Date End Date Ravi Smith MD PCP - General 11/04/17 09/27/21 AftKianna MD PhD [address] [place] [address] Surgeon Surgical Oncology 11/22/17 Santiago Gilbert MD [address] [place] [address] Director International Gastroenterology 11/22/17 Dmitry Sanderson MD [address] [place] [address] Referring Physician Colon and Rectal Surgery 12/03/1805/06 Abbi Ventura MD [address] [place] [address] [address] [place] [address] Medical Oncologist/Bookmaker'S Clerk Medical Oncology 12/03/18 Montse Thompson MD [address] [place] [address] Consulting Physician Gynecologic Oncology 12/03/18 Lela Hardy MD PhD [address] [place] [address] Radiation Oncologist Radiation Oncology 12/23/18 Aft, Kianna Machado MD PhD [address] [facility] [address] [place], [place] [address] Surgeon Surgical Oncology 12/23/18 09/17/21 documented as of this encounter
--- OUTSIDE RECORDS SUMMARY | 2024-04-24 14:48 | XMS_ITS | Encounter Summary ---
Author Organization [facility] Address [address] [place] [address] Phone Care Team Providers Care Sanding Machine Tender Name Role Phone Aft, Kianna Machado MD PhD Unavailable [phone] Santiago Gilbert MD Unavailable [phone] Dmitry Sanderson MD Unavailable [phone] Abbi Ventura MD Unavailable Montse Thompson MD Unavailable [phone] Lela Hardy MD PhD Unavailable [phone] Trena Obando MD Unavailable [phone] Dat Benito DO Primary Care Provider [phone] Encounter Details Date Type Department Care Team (Late st Contact Info) Description 10/06/2021 Telephone [facility] Oncology [address] [place] [address] Uriel Corral Social History Tobacco Use Types [...] on file 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 Gender Identity Not on file Sexual [...] on filedocumented in this encounter Care Teams Sanding Machine Tender Relationship Specialty Start Date End Date Dat Benito DO [address] [place] [address] PCP - General Internal Medicine 09/28/21 Aft, Kianna Machado MD PhD [address] [place] [address] Surgeon Surgical Oncology 11/22/17 Santiago Gilbert MD [address] [place] [address] General Clerk Gastroenterology 11/22/17 Dmitry Sanderson MD [address] [place] [address] Referring Physician Colon and Rectal Surgery 12/03/1805/06 Abbi Ventura MD [address] [facility] [address] [place] [address] Medical Oncologist/Weaver Hand Loom Medical Oncology 12/03/18 Montse Thompson MD [address] [facility] [address] [place] [address] Consulting Physician Gynecologic Oncology 12/03/18 Lela Hardy MD PhD [address] [facility] [address] [place], [place] [address] Radiation Oncologist Radiation Oncology 12/23/18 Trena Obando MD [address] [place], [place] [address] Consulting Physician Neurology 09/18/21 documented as of this encounter
--- OUTSIDE RECORDS SUMMARY | 2024-04-24 14:48 | XMS_ITS | Encounter Summary ---
Author Organization [facility] Address [address] [place] [address] Phone Care Team Providers Care Continuous Mining Operator Name Role Phone Aft, Tony Machado MD PhD Unavailable [phone] Robert Soriano MD Unavailable [phone] Nicole López MD Unavailable [phone] Birdie Ventura MD Unavailable Montse Carter MD Unavailable [phone] Nilson Lopez MD PhD Unavailable [phone] Trena Obando MD Unavailable [phone] Dat Benito DO Primary Care Provider [phone] Encounter Details Date Type Department Care Team (Late st Contact Info) Description 11/07/2021 3:00 PM CDT Office Visit [facility] Pulmonary [address] [facility] Advanced Medicine 8th [place] [address] [place] [address] Cristobal Dong MD [address] [place] [address] History of breast cancer (Primary [...] file 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 polysomnography technologist /shaina cc: BIRDIE VENTURA M.D. [address] [place] [id number] MONTSE CARTER MD [facility] Gynecological Oncology [address] [place] [address] NICOLE LÓPEZ MD [address] [place] [address] ROBERT SORIANO MD [address] [place] [address] / HUGO PENALOZA MD [address] [place] [address] / NILSON LOPEZ MD [address] [facility] [address] [place] [address] TONY GAY MD [address] [facility] Floor [address] [place] [address] documented in this encounter Plan of Treatment [...] 05/09/2022 added in this encounter Care Teams Continuous Mining Operator Relationship Specialty Start Date End Date Dat Benito DO [address] [place] [address] PCP - General Internal Medicine 09/28/21 Aileent, Tony Machado MD PhD [address] [place] [address] Surgeon Surgical Oncology 11/22/17 Robert Soriano MD [address] [place] [address] Chef Head Gastroenterology 11/22/17 Nicole López MD [address] [place] [address] Referring Physician Colon and Rectal Surgery 12/03/1805/06 Birdie Ventura MD [address] [facility] [address] [place] [address] Medical Oncologist/Lettuce Cutter Medical Oncology 12/03/18 Montse Carter MD [address] [facility] [address] [place], [place] [address] Consulting Physician Gynecologic Oncology 12/03/18 Nilson Lopez MD PhD [address] [facility] [address] [place], [place] [address] Radiation Oncologist Radiation Oncology 12/23/18 Trena Obando MD [address] [place], [place] [address] Consulting Physician Neurology 09/18/21 documented as of this encounter
--- OUTSIDE RECORDS SUMMARY | 2024-04-24 14:48 | XMS_ITS | Encounter Summary ---
Author Organization [facility] Healthcare Address [address] [place] [address] Care Team Providers Care Brand Sales Manager Name Role Phone Aft, Kianna Machado MD PhD Unavailable [phone] Santiago Gilbert MD Unavailable [phone] Dmitry Sanderson MD Unavailable [phone] Abbi Ventura MD Unavailable Montse Thompson MD Unavailable [phone] Lela Hardy MD PhD Unavailable [phone] Trena Obando MD Unavailable [phone] Dat Benito DO Primary Care Provider [phone] Encounter Details Date Type Department Care Team (Late st Contact Info) Description 01/26/2022 Orders Only [facility] Radiology at [facility] Medicine [address] [place] [address] Laquita Redding, RN Social History Tobacco Use [...] file 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 Gender Identity Not on file Sexual Orientation Not on file documented as of this encounter Plan of Treatment Not on file documented as of this encounter Visit Diagnoses Not on filedocumented in this encounter Care Teams Brand Sales Manager Relationship Specialty Start Date End Date Dat Benito DO [address] [place] [address] PCP - General Internal Medicine 09/28/21 Aft, Kianna Machado MD PhD [address] [place] [address] Surgeon Surgical Oncology 11/22/17 Santiago Gilbert MD [address] [place] [address] Fibreglass Lay Up Worker Gastroenterology 11/22/17 Dmitry Sanderson MD [address] [place] [address] Referring Physician Colon and Rectal Surgery 12/03/1805/06 Abbi Ventura MD [address] [place] [address] Medical Oncologist/Precision Instrument And Tool Maker Medical Oncology 12/03/18 Montse Thompson MD [address] [place], [place] [address] Consulting Physician Gynecologic Oncology 12/03/18 Lela Hardy MD PhD [address] [place] [address] Radiation Oncologist Radiation Oncology 12/23/18 Trena Obando MD [address] [place] [address] Consulting Physician Neurology 09/18/21 documented as of this encounter
--- OUTSIDE RECORDS SUMMARY | 2024-04-24 14:48 | XMS_ITS | Encounter Summary ---
Author Organization [facility] Address [address] [place] [address] Phone Care Team Providers Care Corporate Development Intern Name Role Phone Ravi Smith MD Primary Care Provider [phone] Aft, Kianna Machado MD PhD Unavailable [phone] Santiago Gilbert MD Unavailable [phone] Dmitry Sanderson MD Unavailable [phone] Abbi Ventura MD Unavailable Montse Thompson MD Unavailable [phone] Lela Hardy MD PhD Unavailable [phone] Aft, Kianna Machado MD PhD Unavailable [phone] Encounter Details Date Type Department Care Team (Late st Contact Info) Description 03/28/[address] [address] Uriel Corral Social History Tobacco Use Types [...] on file 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 Uriel Corral RN OFFICIAL documented in this encounter Plan of Treatment Not on file documented as of this encounter Visit Diagnoses Not on filedocumented in this encounter Care Teams Corporate Development Intern Relationship Specialty Start Date End Date Ravi Smith MD PCP - General 11/04/17 09/27/21 Aft, Kianna Machado MD PhD [address] [place] [address] Surgeon Surgical Oncology 11/22/17 Santiago Gilbert MD [address] [place] [address] Kindergarten Paraprofessional Gastroenterology 11/22/17 Dmitry Sanderson MD [address] [place] [address] Referring Physician Colon and Rectal Surgery 12/03/1805/06 Abbi Ventura MD [address] [place] [address] [address] [place] [address] Medical Oncologist/Coffee Machine Technician Medical Oncology 12/03/18 Montse Thompson MD [address] [place] [address] [address] [place] [address] Consulting Physician Gynecologic Oncology 12/03/18 Lela Hardy MD PhD [address] [place] [address] [address] [place] [address] Radiation Oncologist Radiation Oncology 12/23/18 Aft, Kianna Machado MD PhD [address] [place] [address] [address] [place] [address] Surgeon Surgical Oncology 12/23/18 09/17/21 documented as of this encounter
--- OUTSIDE RECORDS SUMMARY | 2024-04-24 14:48 | XMS_ITS | Encounter Summary ---
Author Organization [facility] Address [address] [place] [address] Phone Care Team Providers Care Mercury Washer Name Role Phone Ravi Smith MD Primary Care Provider [phone] Aft, Kianna Machado MD PhD Unavailable [phone] Santiago Gilbert MD Unavailable [phone] Dmitry Sanderson MD Unavailable [phone] Abbi Ventura MD Unavailable Montse Thompson MD Unavailable [phone] Lela Hardy MD PhD Unavailable [phone] Aft, Kianna Machado MD PhD Unavailable [phone] Reason for Referral * MRI/CAT/PET Scan (Routine) - Closed Specialty Diagnoses / Procedures Referred By Contac t Referred To Contact Radiology Diagnoses Malignant neoplasm of upper-inner quadrant of left breast in female, estrogen receptor negative (HCC) Procedures MRI Abdomen Pelvis W WO Contrast Abbi Ventura MD [address] [facility] [address] [place] [address] Phone: tel: fax: [facility] Referral ID Status Reason Start Date Expiration Date Visits Re quested Visits Authorized [id number] Closed 03/28/2021 04/27/2022 1 1 HEAD WORKER * MRI/CAT/PET Scan (Routine) - Closed Specialty Diagnoses / Procedures Referred By Contac t Referred To Contact Radiology Diagnoses Malignant neoplasm of upper-inner quadrant of left breast in female, estrogen receptor negative (HCC) Procedures CT Chest WO Contrast Abbi Ventura MD [address] 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 ??No imaging evidence of metastatic disease in the abdomen or pelvis. Dictated by: Cherise Mendoza M.D. The radiology attending physician has personally reviewed this study, and had reviewed and/or edited this written report and agrees with it. Electronically signed by: Jose Daniels M.D. Narrative 04/26/2021 12:28 PM OVERHEAD WORKER EXAMINATION: 1. MAGNETIC RESONANCE IMAGING OF [...] CT Chest WO Contrast (04/25/2021 3:25 PM OVERHEAD WORKER) Anatomical Region Laterality Modality Body N/A Computed Tomogra phy 04/25/2021 3:45 PM OVERHEAD WORKER Impressions 04/25/2021 3:45 PM OVERHEAD WORKER 1. No metastatic disease identified in the chest. Electronically signed by: Nicholas Olmos M.D. Narrative 04/25/2021 3:45 PM OVERHEAD WORKER EXAMINATION: ??Computed tomography of the chest [...] (HCC) documented in this encounter Care Teams Mercury Washer Relationship Specialty Start Date End Date Ravi Smith MD PCP - General 11/04/17 09/27/21 Aft, Kianna Machado MD PhD [address] [place] [address] Surgeon Surgical Oncology 11/22/17 Santiago Gilbert MD [address] [place] [address] Rail Car Repairer Gastroenterology 11/22/17 Dmitry Sanderson MD [address] [place], [place] [id number] Referring Physician Colon and Rectal Surgery 12/03/1805/06 Abbi Ventura MD [address] [facility] [address] [place] [address] Medical Oncologist/Copy Operator Medical Oncology 12/03/18 Montse Thompson MD [address] [facility] [address] [place], [place] [address] Consulting Physician Gynecologic Oncology 12/03/18 Lela Hardy MD PhD [address] [facility] [address] [place] [address] Radiation Oncologist Radiation Oncology 12/23/18 Aft, Kianna Machado MD PhD [address] [facility] [address] [place], [place] [address] Surgeon Surgical Oncology 12/23/18 09/17/21 documented as of this encounter
--- OUTSIDE RECORDS SUMMARY | 2024-04-24 14:48 | XMS_ITS | Encounter Summary ---
Author Organization [facility] Address [address] [place] [address] Phone Care Team Providers Care Fixture Relamper Name Role Phone Aft, Kianna Machado MD PhD Unavailable [phone] Santiago Gilbert MD Unavailable [phone] Dmitry Sanderson MD Unavailable [phone] Abbi Ventura MD Unavailable Montse Thompson MD Unavailable [phone] Lela Hardy MD PhD Unavailable [phone] Trena Obando MD Unavailable [phone] Dat Benito DO Primary Care Provider [phone] Encounter Details Date Type Department Care Team (Late st Contact Info) Description 11/08/2021 Telephone [facility] Pulmonary [address] [facility] 8th [place] [address] [place] [address] Renetta Eduardo RMA Social History Tobacco Use [...] file 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 Gender Identity Not on file Sexual [...] on filedocumented in this encounter Care Teams Fixture Relamper Relationship Specialty Start Date End Date Dat Benito DO [address] [place] [address] PCP - General Internal Medicine 09/28/21 Aft, Kianna Machado MD PhD [address] [place] [address] Surgeon Surgical Oncology 11/22/17 Santiago Gilbert MD [address] [place] [address] Turkey Boner Gastroenterology 11/22/17 Dmitry Sanderson MD [address] [place] [address] Referring Physician Colon and Rectal Surgery 12/03/1805/06 Abbi Ventura MD [address] [facility] [address] [place] [address] Medical Oncologist/Cook Manager Medical Oncology 12/03/18 Montse Thompson MD 10 [facility] [address] [place] [address] Consulting Physician Gynecologic Oncology 12/03/18 Lela Hardy MD PhD [address] [facility] [address] [place] [address] Radiation Oncologist Radiation Oncology 12/23/18 Trena Obando MD [address] [place], [place] [address] Consulting Physician Neurology 09/18/21 documented as of this encounter
--- OUTSIDE RECORDS SUMMARY | 2024-04-24 14:48 | XMS_ITS | Encounter Summary ---
Author Organization [facility] Address [address] [place] [address] Phone Care Team Providers Care Line Crewman Name Role Phone Aft, Kianna Machado MD PhD Unavailable [phone] Santiago Gilbert MD Unavailable [phone] Dmitry Sanderson MD Unavailable [phone] Abbi Ventura MD Unavailable Montse Thompson MD Unavailable [phone] Lela Hardy MD PhD Unavailable [phone] Trena Obando MD Unavailable [phone] Dat Benito DO Primary Care Provider [phone] Reason for Referral * (Routine) - Closed Specialty Diagnoses / Procedures Referred By Contac t Referred To Contact Diagnoses Asthma-COPD overlap syndrome (HCC) Procedures Pulmonary Function Test -[facility] Adult PFT Lab- CAM-8D; Spirometry, Oxygen Assessment Titration Cristobal Dong MD [address] [facility] [address] [place] [address] Phone: tel: fax: Referral ID Status Reason Start Date Expiration Date Visits Re quested Visits Authorized [id number] Closed 03/21/2021 04/20/2022 1 1 Reason for Visit * (Routine) - Closed Specialty Diagnoses / Procedures Referred By Contac t Referred To Contact Diagnoses Asthma-COPD overlap syndrome (HCC) Procedures Pulmonary Function Test -[facility] Adult PFT Lab- CAM-8D; Spirometry, Oxygen Assessment Titration Cristobal Dong MD [address] [place] [place] [address] Phone: tel: fax: Referral ID Status Reason Start Date Expiration Date Visits Re quested Visits Authorized [id number] Closed 03/21/2021 04/20/2022 1 1 Encounter Details Date Type Department Care Team (Latest Contact Info) Description 11/07/2021 2:20 PM CDT - 11/07/2021 11:59 PM CDT Hospital Encounter [facility] Pulmonary [address] [facility] [address] [place] [address] Asthma-COPD overlap syndrome (CMS/HCC) (HCC) Discharge Disposition: [...] on file 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 Gender Identity Not on file Sexual Orientation [...] PM CDT) FVC PRE 2.51 L [facility] FVC %PRE PRED 69 % [facility] FEV1 PRE 2.01 L [facility] FEV1 %PRE PRED 71 % [facility] FEV1/FVC PRE 80.1 % [facility] Anatomical Region Laterality Modality PFT 11/07/2021 2:25 PM CDT Narrative 11/09/2021 11:18 AM CDT [facility] Division of Pulmonary & Critical Care Medicine [address] [place] [address]; [place] [facility]; [place], [place] [address]; [phone] Pulmonary Function Laboratory Pulmonary Stress Test Simple/Oxygen [...] Work [distance (m) x body wt (kg)]: 85615 kg.m (normal >60,000kg.m) Oxygen required to maintain [...] with the written final report. PFT performed at:->[facility] Adult PFT Lab- CAM-8D Procedure:->Spirometry Procedure:->Oxygen Assessment Titration Cristobal Dong MD PFT ORDERABLES Final Result documented in this encounter Visit Diagnoses Diagnosis Asthma-COPD overlap syndrome (HCC) documented in this encounter Care Teams Line Crewman Relationship Specialty Start Date End Date Dat Benito DO [address] [place] [address] PCP - General Internal Medicine 09/28/21 Aft, Kianna Machado MD PhD [address] [place] [address] Surgeon Surgical Oncology 7/20/18 Santiago Gilbert MD [address] [place] [address] Mineral Wool Insulation Supervisor Gastroenterology 11/22/17 Dmitry Sanderson MD [address] [place] [address] Referring Physician Colon and Rectal Surgery 12/03/1805/06 Abbi Ventura MD 10 [facility] [address] [place] [address] Medical Oncologist/Diamond Wheel Molder Medical Oncology 12/03/18 Montse Thompson MD 10 [facility] [address] [place] [address] Consulting Physician Gynecologic Oncology 12/03/18 Lela Hardy MD PhD [address] [facility] [address] [place] [address] Radiation Oncologist Radiation Oncology 12/23/18 Trena Obando MD [address] [place] [address] Consulting Physician Neurology 09/18/21 documented as of this encounter
--- OUTSIDE RECORDS SUMMARY | 2024-04-24 14:48 | XMS_ITS | Encounter Summary ---
Author Organization [facility] Healthcare Address [address] [place] [address] Care Team Providers Care Real Estate Appraiser Supervisor Name Role Phone Ravi Smith MD Primary Care Provider [phone] Aftatiana, Kianna Machado MD PhD Unavailable [phone] Santiago Gilbert MD Unavailable [phone] Dmitry Sanderson MD Unavailable [phone] Abbi Ventura MD Unavailable Montse Thompson MD Unavailable Lela Hardy MD PhD Unavailable [phone] Trena Obando MD Unavailable [phone] Encounter Details Date Type Department Care Team (Latest Contact Info) Description 09/18/2021 3:49 PM CDT - 09/18/2021 11:59 PM T Hospital Encounter [facility] PATHOLOGY [address] [address] Discharge Disposition: Discharge to home or self [...] on file 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 Gender Identity Not on file Sexual [...] in this encounter Care Teams Real Estate Appraiser Supervisor Relationship Specialty Start Date End Date Ravi Smith MD PCP - General 11/04/17 09/27/21 Aft, Kianna Machado MD PhD [address] [place] [address] Surgeon Surgical Oncology 11/22/17 Santiago Gilbert MD [address] [place] [address] Supervisor Packing Gastroenterology 11/22/17 Dmitry Sanderson MD [address] [place] [address] Referring Physician Colon and Rectal Surgery 12/03/1805/06 Abbi Ventura MD 10 [facility] [address] [place] [address] Medical Oncologist/Oracle Soa Architect Medical Oncology 12/03/18 Montse Thompson MD 10 [facility] [address] [place] [address] Consulting Physician Gynecologic Oncology 12/03/18 Llea Hardy MD PhD [address] [facility] [address] [place] [address] Radiation Oncologist Radiation Oncology 12/23/18 Trena Obando MD [address] [place] [address] Consulting Physician Neurology 09/18/21 documented as of this encounter
--- OUTSIDE RECORDS SUMMARY | 2024-04-24 14:48 | XMS_ITS | Encounter Summary ---
Author Organization [facility] Healthcare Address [address] [place] [address] Care Team Providers Care Product Examiner Name Role Phone Aft, Kianna Machado MD PhD Unavailable [phone] Santiago Gilbert MD Unavailable [phone] Dmitry Sanderson MD Unavailable [phone] Abbi Ventura MD Unavailable Montse Thompson MD Unavailable [phone] Lela Hardy MD PhD Unavailable [phone] Trena Obando MD Unavailable Dat Benito DO Primary Care Provider [phone] Reason for Referral * MRI/CAT/PET Scan (Routine) - Closed Specialty Diagnoses / Procedures Referred By Contac t Referred To Contact Radiology Diagnoses Malignant neoplasm of upper-inner quadrant of left breast in female, 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) Procedures CT Chest Abdomen WO Contrast Abbi Ventura MD [address] [place] [address] Phone: tel: fax: [facility] Referral ID Status Reason Start Date Expiration Date Visits Re quested Visits Authorized [id number] Closed 09/21/2021 10/21/2022 1 1 Reason for Visit * MRI/CAT/PET Scan (Routine) - Closed Specialty Diagnoses / Procedures Referred By Contac t Referred To Contact Radiology Diagnoses Malignant neoplasm of upper-inner quadrant of left breast in female, 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) Procedures CT Chest Abdomen WO Contrast Abbi Ventura MD [address] 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 Gender Identity Not on file Sexual [...] colon documented in this encounter Care Teams Product Examiner Relationship Specialty Start Date End Date Dat Benito DO [address] [place] [address] PCP - General Internal Medicine 09/28/21 Aft, Kianna Machado MD PhD [address] [place] [address] Surgeon Surgical Oncology 11/22/17 Santiago Gilbert MD [address] [place] [address] Balling Machine Operator Gastroenterology 11/22/17 Dmitry Sanderson MD [address] [place] [address] Referring Physician Colon and Rectal Surgery 12/03/1805/06 Abbi Ventura MD [address] [place] [address] [address] [place] [address] Medical Oncologist/Coding Assistant Medical Oncology 12/03/18 Montse Thompson MD [address] [place] [address] [address] [place] [address] Consulting Physician Gynecologic Oncology 12/03/18 Lela Hardy MD PhD [address] [facility] [address] [place] [address] Radiation Oncologist Radiation Oncology 12/23/18 Trena Obando MD [facility] [address] [place] [address] Consulting Physician Neurology 09/18/21 documented as of this encounter
--- OUTSIDE RECORDS SUMMARY | 2024-04-24 14:48 | XMS_ITS | Encounter Summary ---
Author Organization [facility] Address [address] [place] [address] Phone Care Team Providers Care Caddy/Caddie Supervisor Name Role Phone Ravi Smith MD Primary Care Provider [phone] Aft, Kianna Machado MD PhD Unavailable [phone] Santiago Gilbert MD Unavailable [phone] Dmitry Sanderson MD Unavailable [phone] Abbi Ventura MD Unavailable Montse Thompson MD Unavailable [phone] Lela Hardy MD PhD Unavailable [phone] Aft, Kianna Machado MD PhD Unavailable [phone] Encounter Details Date Type Department Care Team (Late st Contact Info) Description 04/27/[address] [address] Uriel Corral Social History Tobacco Use Types [...] on file 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 Uriel Corral RN T DRIVER documented in this encounter Plan of Treatment Not on file documented as of this encounter Visit Diagnoses Not on filedocumented in this encounter Care Teams Caddy/Caddie Supervisor Relationship Specialty Start Date End Date Ravi Smith MD PCP - General 11/04/17 09/27/21 Aft, Kianna Machado MD PhD [address] [place] [address] Surgeon Surgical Oncology 11/22/17 Santiago Gilbert MD [address] [place] [address] Roller Leveler Operator Gastroenterology 11/22/17 Dmitry Sanderson MD [address] [place] [address] Referring Physician Colon and Rectal Surgery 12/03/1805/06 Abbi Ventura MD 10 [facility] [address] [place] [address] Medical Oncologist/Manager Hris Medical Oncology 12/03/18 Montse Thompson MD [address] [facility] [address] [place], [place] [address] Consulting Physician Gynecologic Oncology 12/03/18 Lela Hardy MD PhD [address] [facility] [address] [place], [place] [address] Radiation Oncologist Radiation Oncology 12/23/18 Aft, Kianna Machado MD PhD [address] [place] [address] [address] [place], [place] [address] Surgeon Surgical Oncology 12/23/18 09/17/21 documented as of this encounter
--- OUTSIDE RECORDS SUMMARY | 2024-04-24 14:48 | XMS_ITS | Encounter Summary ---
Author Organization [facility] Healthcare Address [address] [place] [address] Care Team Providers Care Development Vice President Name Role Phone Ravi Smith MD Primary Care Provider [phone] Aft, Kianna Machado MD PhD Unavailable Santiago Gilbert MD Unavailable [phone] Dmitry Sanderson MD Unavailable [phone] Abbi Ventura MD Unavailable Montse Thompson MD Unavailable [phone] Lela Hardy MD PhD Unavailable [phone] Aft, Kianna Machado MD PhD Unavailable [phone] Reason for Referral * MRI/CAT/PET Scan (Routine) - Closed Specialty Diagnoses / Procedures Referred By [facility] t Referred To Contact Radiology Diagnoses Malignant neoplasm of upper-inner quadrant of left breast in female, estrogen receptor negative (HCC) Procedures CT Chest WO Contrast Abbi Ventura MD 10 [facility] [address] [place] [address] Phone: tel: fax: [facility] Referral ID Status Reason Start Date Expiration Date Visits Re quested Visits Authorized [id number] Closed 03/28/2021 04/27/2022 1 1 ALOMETRIC TRACER Reason for Visit * MRI/CAT/PET Scan (Routine) - Closed Specialty Diagnoses / Procedures Referred By Vijaya t Referred To Contact Radiology Diagnoses Malignant neoplasm of upper-inner quadrant of left breast in female, estrogen receptor negative (HCC) Procedures CT Chest WO Contrast Abbi Ventura MD [address] [facility] [address] [place] [address] Phone: tel: fax: [facility] Referral ID Status Reason Start Date Expiration Date Visits Re quested Visits Authorized [id number] Closed 03/28/2021 04/27/2022 1 1 Encounter Details Date Type Department Care Team (Latest Contact Info) Description 04/25/2021 3:21 PM CEPHALOMETRIC TRACER - 04/25/2021 11:59 PM CEPHALOMETRIC TRACER Hospital Encounter [facility] [address] [place] [id number] Abbi Ventura MD [address] [facility] [address] [place] [address] Malignant neoplasm of upper-inner quadrant [...] on file Legal 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 No metastatic disease identified in the chest. Electronically signed by: Nicholas Olmos M.D. Narrative 04/25/2021 3:45 PM CEPHALOMETRIC TRACER EXAMINATION: ??Computed tomography of the chest without [...] (HCC) documented in this encounter Care Teams Development Vice President Relationship Specialty Start Date End Date Ravi Smith MD PCP - General 11/04/17 09/27/21 Aft, Kianna Machado MD PhD [address] [place] [address] Surgeon Surgical Oncology 11/22/17 Santiago Gilbert MD [address] [place] [address] Sketch Maker Gastroenterology 11/22/17 Dmitry Sanderson MD [address] [place] [address] Referring Physician Colon and Rectal Surgery 12/03/1805/06 Abbi Ventura MD [address] [place] [address] Medical Oncologist/Rubber Goods Inspector Medical Oncology 12/03/18 Montse Thompson MD [address] [place], [place] [address] Consulting Physician Gynecologic Oncology 12/03/18 Lela Hardy MD PhD [address] [place], [place] [address] Radiation Oncologist Radiation Oncology 12/23/18 Aft, Kianna Machado MD PhD [address] [facility] [address] [place], [place] [address] Surgeon Surgical Oncology 12/23/18 09/17/21 documented as of this encounter
--- OUTSIDE RECORDS SUMMARY | 2024-04-24 14:48 | XMS_ITS | Encounter Summary ---
Author Organization [facility] Address [address] [place] [address] Phone Care Team Providers Care Building Energy Consultant Name Role Phone Aft, Kianna Machado MD PhD Unavailable [phone] Santiago Gilbert MD Unavailable [phone] Dmitry Sanderson MD Unavailable [phone] Abbi Ventura MD Unavailable Montse Thompson MD Unavailable [phone] Lela Hardy MD PhD Unavailable [phone] Trena Obando MD Unavailable [phone] Dat Benito DO Primary Care Provider [phone] Encounter Details Date Type Department Care Team (Late st Contact Info) Description 10/05/2021 Telephone [facility] [address] [place] [address] Uriel Corral Social History Tobacco Use Types [...] on file 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 Gilbert's office at telephone number listed: [phone], call unableto be completed as dialed. RN [...] on filedocumented in this encounter Care Teams Building Energy Consultant Relationship Specialty Start Date End Date Dat Benito DO [address] [place] [address] PCP - General Internal Medicine 09/28/21 Aft, Kianna Machado MD PhD [address] [place] [address] Surgeon Surgical Oncology 11/22/17 Santiago Gilbert MD [address] [place] [address] Ginner Helper Gastroenterology 11/22/17 Dmitry Sanderson MD [address] [place] [address] Referring Physician Colon and Rectal Surgery 12/03/1805/06 Abbi Ventura MD [address] [facility] [address] [place] [address] Medical Oncologist/Naturopath Medical Oncology 12/03/18 Montse Thompson MD [address] [facility] [address] [place] [address] Consulting Physician Gynecologic Oncology 12/03/18 Lela Hardy MD PhD [address] [facility] [address] [place] [address] Radiation Oncologist Radiation Oncology 12/23/18 Trena Obando MD [address] [place] [address] Consulting Physician Neurology 09/18/21 documented as of this encounter
--- OUTSIDE RECORDS SUMMARY | 2024-04-24 14:48 | XMS_ITS | Encounter Summary ---
Author Organization [facility] [employer] [facility] Address [address] [place] [address] Phone Care Team Providers Care Social Services Technician Name Role Phone Ravi Smith MD Primary Care Provider [phone] Aft, Kianna Machado MD PhD Unavailable [phone] Santiago Gilbert MD Unavailable [phone] Dmitry Sanderson MD Unavailable [phone] Abbi Ventura MD Unavailable Montse Thompson MD Unavailable [phone] Lela Hardy MD PhD Unavailable [phone] Trena Obando MD Unavailable [phone] Encounter Details Date Type Department Care Team (Late st Contact Info) Description 09/21/2021 1:00 PM CDT Lab [facility] Oncology [address] [place] [address] Malignant neoplasm of upper-inner quadrant of left [...] 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 Gender Identity Not on file Sexual Orientation [...] 09/21/2021 documented in this encounter Care Teams Social Services Technician Relationship Specialty Start Date End Date Ravi Smith MD PCP - General 11/04/17 09/27/21 Aft, Kianna Machado MD PhD [address] [place] [address] Surgeon Surgical Oncology 11/22/17 Santiago Gilbert MD [address] [place] [address] Detention Sergeant Gastroenterology 11/22/17 Dmitry Sanderson MD [address] [place] [address] Referring Physician Colon and Rectal Surgery 12/03/1805/06 Abbi Ventura MD [address] [place] [address] [address] [place] [address] Medical Oncologist/Scale Adjuster Medical Oncology 12/03/18 Montse Thompson MD [address] [facility] [address] [place] [address] Consulting Physician Gynecologic Oncology 12/03/18 Lela Hardy MD PhD [address] [facility] [address] [place] [address] Radiation Oncologist Radiation Oncology 12/23/18 Trena Obando MD [facility] [address] [place] [address] Consulting Physician Neurology 09/18/21 documented as of this encounter
--- OUTSIDE RECORDS SUMMARY | 2024-04-24 14:48 | XMS_ITS | Encounter Summary ---
Author Organization [facility] Address [address] [place] [address] Care Team Providers Care Senior Administrative Support Name Role Phone Ravi Smith MD Primary Care Provider [phone] Aft, Kianna Machado MD PhD Unavailable [phone] Santiago Gilbert MD Unavailable [phone] Dmitry Sanderson MD Unavailable [phone] Abbi Ventura MD Unavailable Montse Thompson MD Unavailable Lela Hardy MD PhD Unavailable [phone] Aft, Kianna Machado MD PhD Unavailable [phone] Encounter Details Date Type Department Care Team (Late st Contact Info) Description 04/13/[address] [facility] [address] 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 Patient request referral information and group information be emailed. 04/13/21 ATCHER AUTOMOBILE RENTAL documented in this encounter Plan of Treatment Not on file documented as of this encounter Visit Diagnoses Not on filedocumented in this encounter Care Teams Senior Administrative Support Relationship Specialty Start Date End Date Ravi Smith MD PCP - General 11/04/17 09/27/21 Aft, Kianna Machado MD PhD [address] [place] [address] Surgeon Surgical Oncology 11/22/17 Santiago Gilbert MD [address] [place] [address] Luncheonette Manager Gastroenterology 11/22/17 Dmitry Sanderson MD [address] [place] [address] Referring Physician Colon and Rectal Surgery 12/03/1805/06 Abbi Ventura MD [address] [facility] [address] [place] [address] Medical Oncologist/Nanny Caregiver Medical Oncology 12/03/18 Montse Thompson MD [address] [facility] [address] [place] [address] Consulting Physician Gynecologic Oncology 12/03/18 Lela Hardy MD PhD [address] [facility] [address] [place] [address] Radiation Oncologist Radiation Oncology 12/23/18 Aft, Kianna Machado MD PhD [address] [facility] [address] [place] [address] Surgeon Surgical Oncology 12/23/18 09/17/21 documented as of this encounter
--- OUTSIDE RECORDS SUMMARY | 2024-04-24 14:48 | XMS_ITS | Encounter Summary ---
Author Organization [facility] Address [address] [place] [address] Phone Care Team Providers Care Skid Strapper Name Role Phone Ravi Smith MD Primary Care Provider [phone] Aft, Kianna Machado MD PhD Unavailable [phone] Santiago Gilbert MD Unavailable Dmitry Sanderson MD Unavailable [phone] Abbi Ventura MD Unavailable Montse Thompson MD Unavailable Lela Hardy MD PhD Unavailable [phone] Aft, Kianna Machado MD PhD Unavailable [phone] Encounter Details Date Type Department Care Team (Late st Contact Info) Description 06/05/[address] 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 Gender Identity Not on file Sexual [...] documented as of this encounter Care Teams Skid Strapper Relationship Specialty Start Date End Date Ravi Smith MD PCP - General 11/04/17 09/27/21 Aft, Kianna Machado MD PhD [address] [place] [address] Surgeon Surgical Oncology 11/22/17 Santiago Gilbert MD [address] [place] [address] Line Service Technician Gastroenterology 11/22/17 Dmitry Sanderson MD [address] [place] [address] Referring Physician Colon and Rectal Surgery 12/03/1805/06 Abbi Ventura MD [address] [place] [address] [address] [place], [place] [id number] Medical Oncologist/Practice Director Medical Oncology 12/03/18 Montse Thompson MD [address] [facility] [address] [place], [place] [id number] Consulting Physician Gynecologic Oncology 12/03/18 Lela Hardy MD PhD [address] [place] [address] [address] [place], [place] [id number] Radiation Oncologist Radiation Oncology 12/23/18 Aft, Kianna Machado MD PhD [address] [place] [address] [address] [place], [place] [id number] Surgeon Surgical Oncology 12/23/18 09/17/21 documented as of this encounter
--- OUTSIDE RECORDS SUMMARY | 2024-04-24 14:48 | XMS_ITS | Encounter Summary ---
Author Organization [facility] Address [address] [place] [address] Phone Care Team Providers Care Product Design Manager Name Role Phone Aft, Kianna Machado MD PhD Unavailable [phone] Santiago Gilbert MD Unavailable [phone] Dmitry Sanderson MD Unavailable [phone] Abbi Ventura MD Unavailable Montse Thompson MD Unavailable [phone] Lela Hardy MD PhD Unavailable [phone] Trena Obando MD Unavailable [phone] Dat Benito DO Primary Care Provider [phone] Encounter Details Date Type Department Care Team [...] on file Legal Sex Female 1:06 AM 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/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 Gender Identity Not on file Sexual [...] filedocumented in this encounter Care Teams Product Design Manager Relationship Specialty Start Date End Date Dat Benito DO [address] [place] [address] PCP - General Internal Medicine 09/28/21 Aft, Kianna Machado MD PhD [address] [place] [address] Surgeon Surgical Oncology 11/22/17 Santiago Gilbert MD [address] [place] [address] Film Library Clerk Gastroenterology 11/22/17 Dmitry Sanderson MD [address] [place] [address] Referring Physician Colon and Rectal Surgery 12/03/1805/06 Abbi Ventura MD [address] [place] [address] Medical Oncologist/Runway Model Medical Oncology 12/03/18 Montse Thompson MD [address] [place] [address] Consulting Physician Gynecologic Oncology 12/03/18 Lela Hardy MD PhD [address] [place] [address] Radiation Oncologist Radiation Oncology 12/23/18 Trena Obando MD [address] [place] [address] Consulting Physician Neurology 09/18/21 documented as of this encounter
--- OUTSIDE RECORDS SUMMARY | 2024-04-24 14:49 | XMS_ITS | Encounter Summary ---
Author Organization [facility] Address [address] [place] [address] Phone Care Team Providers Care Banker Mason Name Role Phone Ravi Smith MD Primary Care Provider [phone] Aft, Kianna Machado MD PhD Unavailable [phone] Santiago Gilbert MD Unavailable Dmitry Sanderson MD Unavailable [phone] Abbi Ventura MD Unavailable Montse Thompson MD Unavailable [phone] Lela Hardy MD PhD Unavailable [phone] Aft, Kianna Machado MD PhD Unavailable [phone] Encounter Details Date Type Department Care Team (Late st Contact Info) Description 03/22/2021 Telephone [facility] Pulmonary [address] [facility] 8th [place] [address] [place] [phone] Leroy Cuellar RMA Social History Tobacco Use [...] on file Legal Sex Female 1:06 AM DOCUMENTATION LIAISON Gender Identity Not on file Sexual Orientation Not on file documented as of this encounter Miscellaneous Notes * Telephone Encounter - Leroy Cuellar RMA - 03/22/2021 9:01 AM CST ----- Message from Adelina Morton RN sent at 03/22/2021 7:34 AM DOCUMENTATION LIAISON ----- Regarding: RE: follow up 11/07/21 at 3:00pm with Dr. Dong. Thanks, Jovita ----- Message ----- From: Leroy CuellarBELLALouise Sent: 03/21/2021 2:47 PM DOCUMENTATION LIAISON To: Adelina Morton RN Subject: follow up Jovita, September I have a [address] Dong? Thanks, Julien'louise MENTATION LIAISON documented in this encounter Plan of Treatment Not on file documented as of this encounter Visit Diagnoses Not on filedocumented in this encounter Care Teams Banker Mason Relationship Specialty Start Date End Date Ravi Smith MD PCP - General 11/04/17 09/27/21 Aft, Kianna Machado MD PhD [address] [place] [address] Surgeon Surgical Oncology 11/22/17 Santiago Gilbert MD [address] [place] [address] Biomed Tech Gastroenterology 11/22/17 Dmitry Sanderson MD [address] [place], [place] [address] Referring Physician Colon and Rectal Surgery 12/03/1805/06 Abbi Ventura MD [address] [facility] [address] [place], [place] [address] Medical Oncologist/Chocolate Packer Medical Oncology 12/03/18 Montse Thompson MD [address] [facility] [address] [place], [place] [address] Consulting Physician Gynecologic Oncology 12/03/18 Lela Hardy MD PhD [address] [facility] [address] [place] [address] Radiation Oncologist Radiation Oncology 12/23/18 Aft, Kianna Machado MD PhD [address] [facility] [address] [place], [place] [address] Surgeon Surgical Oncology 12/23/18 09/17/21 documented as of this encounter
--- OUTSIDE RECORDS SUMMARY | 2024-04-24 14:49 | XMS_ITS | Encounter Summary ---
Author Organization [facility] Address [address] [place] [address] Phone Care Team Providers Care Plc Controls Engineer Name Role Phone Ravi Smith MD Primary Care Provider [phone] Aft, Kianna Machado MD PhD Unavailable [phone] Santiago Gilbert MD Unavailable [phone] Dmitry Sanderson MD Unavailable [phone] Abbi Ventura MD Unavailable Montse Thompson MD Unavailable [phone] Lela Hardy MD PhD Unavailable [phone] Aft, Kianna Machado MD PhD Unavailable Reason for Visit * Reason Comments OP Infusion Encounter Details Date Type Department Care Team (Late st Contact Info) Description 03/23/2021 3:30 PM MUSIC INTERN Infusion [facility] Oncology [address] [place] [address] Malignant neoplasm of upper-inner quadrant of left [...] on file Legal Sex Female 1:06 AM MUSIC INTERN Gender Identity Not on file Sexual Orientation Not on file documented as of this encounter Nursing Notes * Jessica Sue Rhett - 03/23/2021 3:30 PM CST Patient tolerated remainder of fluids well. DC'd home ambulatory in stable condition. C INTERN documented in this encounter Plan of [...] 1 doseIndications:Dehydration New Bag 03/23/2021 3:37 PM MUSIC INTERN 1,000 mL 100 0 mL/hr documented in this encounter Orders Medications Ordered That Jefferson ht Not Have Been Administered Count Last Ordered Date First Ordered Date sodium chloride 0.9% bolus 1,000 mL 1 03/23 Nursing Count Last Ordered Date First Orde red Date ONCBCN NURSING COMMUNICATION [id number] 1 03/23 Appointment Requests Count Last Ordered Date Fi rst Ordered Date INFUSION APPT REQUEST 60 MIN 1 03/23/2021 documented in this encounter Care Teams Plc Controls Engineer Relationship Specialty Start Date End Date Ravi Smith MD PCP - General 11/04/17 09/27/21 Aft, Kianna Machado MD PhD [address] [place] [address] Surgeon Surgical Oncology 11/22/17 Santiago Gilbert MD [address] [place] [address] Vocational Trainer Gastroenterology 11/22/17 Dmitry Sanderson MD [address] [place] [address] Referring Physician Colon and Rectal Surgery 12/03/1805/06 Abbi Ventura MD [address] [facility] [address] [place] [address] Medical Oncologist/Auto Body Repair Teacher Medical Oncology 12/03/18 Montse Thompson MD [address] [facility] [address] [place] [address] Consulting Physician Gynecologic Oncology 12/03/18 Lela Hardy MD PhD [address] [facility] [address] [place] [address] Radiation Oncologist Radiation Oncology 12/23/18 Aft, Kianna Machado MD PhD [address] [facility] [address] [place] [address] Surgeon Surgical Oncology 12/23/18 09/17/21 documented as of this encounter
--- OUTSIDE RECORDS SUMMARY | 2024-04-24 14:49 | XMS_ITS | Encounter Summary ---
Author Organization [facility] Address [address] [place] [address] Phone Care Team Providers Care Focused Factory Manager Name Role Phone Ravi Smith MD Primary Care Provider [phone] Aft, Kianna Machado MD PhD Unavailable [phone] Santiago Gilbert MD Unavailable [phone] Dmitry Sanderson MD Unavailable [phone] Abbi Ventura MD Unavailable Montse Thompson MD Unavailable [phone] Lela Hardy MD PhD Unavailable [phone] Aft, Kianna Machado MD PhD Unavailable Reason for Referral * (Routine) - Closed Specialty Diagnoses / Procedures Referred By Contac t Referred To Contact Diagnoses Asthma-COPD overlap syndrome (HCC) Procedures Pulmonary Function Test -[facility] Adult PFT Lab- CAM-8D; Spirometry, Oxygen Assessment Titration Cristobal Dong MD [address] [place] [address] Phone: tel: fax: Referral ID Status Reason Start Date Expiration Date Visits Re quested Visits Authorized [id number] Closed 03/21/2021 04/20/2022 1 1 AL SALES REPRESENTATIVE * Diagnostic Imaging (Routine) - Closed Specialty Diagnoses / Procedures Referred By Contac t Referred To Contact Diagnoses Asthma-COPD overlap syndrome (HCC) Procedures XR Chest Pa Lateral 2 Views Cristobal Dong MD [address] [place] [address] Phone: tel: fax: [facility] [address] [facility] [place] [address] Referral ID Status Reason Start Date Expiration Date Visits Re quested Visits Authorized [id number] Closed 03/21/2021 04/20/2022 1 1 AL SALES REPRESENTATIVE Encounter Details Date Type Department Care Team (Late st Contact Info) Description 03/21/2021 2:30 PM RENTAL SALES REPRESENTATIVE Office Visit [facility] Pulmonary [address] [facility] [address] 8th [place] [address] [place] [address] Cristobal Dong MD [address] [place] [address] Asthma-COPD overlap syndrome (CMS/HCC) (HCC) [...] on file Legal Sex Female 1:06 AM RENTAL SALES REPRESENTATIVE Gender Identity Not on file Sexual Orientation Not on file documented as of this encounter Last Filed Vital Signs Vital Sign Reading Time Taken Comments Blood Pressure 115/69 03/21/2021 1:53 PM RENTAL SALES REPRESENTATIVE Pulse 85 03/21/2021 1:53 PM RENTAL SALES REPRESENTATIVE Temperature 36.3 ??C (97.3 ??F) 03/21/2021 1:53 PM CS T Respiratory Rate 18 03/21/2021 1:53 PM RENTAL SALES REPRESENTATIVE Oxygen Saturation 95% 03/21/2021 1:53 PM RENTAL SALES REPRESENTATIVE Inhaled Oxygen Concentration - - Weight 114.5 kg (252 lb 6.4 oz) 03/21/2021 1:53 PM RENTAL SALES REPRESENTATIVE Height 175.3 cm (5' 9 ) 03/21/2021 1:53 PM RENTAL SALES REPRESENTATIVE Body Mass Index 37.27 03/21/2021 1:53 PM RENTAL SALES REPRESENTATIVE documented in this encounter Progress Notes * Case, Tomas Soliman MD - 03/21/2021 2:[address] [facility], PULMONARY MEDICINE, [facility], 8TH FLOOR, [facility], [address] [place], [place] [id number] PROBLEM LIST: 1. Mild persistent asthma. a. [...] Cristobal Dong MD at 03/22/2021 1:32 PM RENTAL SALES REPRESENTATIVE AL SALES REPRESENTATIVE AL SALES REPRESENTATIVE Associated attestation - Cristobal Dong MD - 03/22/2021 1:32 PM RENTAL SALES REPRESENTATIVE I have seen and examined the patient. I agree with the findings and plan of care as documented in the resident/fellow's note. I have placed an addendum with updated findings and plan. documented in this encounter Plan of Treatment Not on file documented as of this encounter Results * Pulmonary Function Test - (11/07/2021 2:43 PM CDT) FVC PRE 2.51 L [facility] FVC %PRE PRED 69 % [facility] FEV1 PRE 2.01 L [facility] FEV1 %PRE PRED 71 % [facility] FEV1/FVC PRE 80.1 % [facility] Anatomical Region Laterality Modality PFT 11/07/2021 2:25 PM CDT Narrative 11/09/2021 11:18 AM CDT [facility] Division of Pulmonary & Critical Care Medicine [address] [place] [address]; [address] [facility]; [place], [place] ??[address]; [phone] Pulmonary Function Laboratory Pulmonary Stress Test Simple/Oxygen [...] Work [distance (m) x body wt (kg)]: 52691 kg.m (normal >60,000kg.m) Oxygen required to maintain [...] the written final report. PFT performed at:->[facility] Adult PFT Lab- CAM-8D Procedure:->Spirometry Procedure:->Oxygen Assessment Titration Cristobal Dong MD PFT ORDERABLES Final Result * Respiratory pathogen panel Nasopharyngeal (03/21/2021 3:32 PM RENTAL SALES REPRESENTATIVE) [facility] Influenza A RNA Not Detected Not Detected [facility] Influenza B RNA Not Detected Not Detected [facility] RSV RNA Not Detected Not Detected [facility] COVID-19 RNA Not Detected Not Detected [facility] Coronavirus 229E RNA Not Detected Not Detected [facility] Coronavirus HKU1 RNA Not Detected Not Detected [facility] Coronavirus NL63 RNA Not Detected Not Detected [facility] Coronavirus OC43 RNA Not Detected Not Detected [facility] Adenovirus DNA Not Detected Not Detected [facility] Metapneumovirus RNA Not Detected Not Detected [facility] Rhinovirus/Enterov irus RNA Not Detected Not Detected [facility] Parainfluenza 1 RNA Not Detected Not Detected [facility] Parainfluenza 2 RNA Not Detected Not Detected [facility] Parainfluenza 3 RNA Not Detected Not Detected [facility] Parainfluenza 4 RNA Not Detected Not Detected [facility] B. pertussis DNA Not Detected Not Detected [facility] B. parapertussis DNA Not Detected Not Detected [facility] C. pneumoniae DNA Not Detected Not Detected [facility] M. pneumoniae DNA Not Detected Not Detected [facility] First COVID-19 test? Unknown [facility] Employeed in healthcare? No [facility] status? No [facility] Group care resident? No [facility] Hospitalized? No [facility] Is patient in ICU? No [facility] Symptomatic as defined by CDC? No [facility] Nasopharyngeal 03/21/2021 3: 32 PM RENTAL SALES REPRESENTATIVE 03/21/2021 6:51 PM RENTAL SALES REPRESENTATIVE Narrative [facility] - 03/21/2021 7:53 PM RENTAL SALES REPRESENTATIVE Reason for testing?->Symptomatic (not immunocompromised) Known exposure to confirmed or suspected COVID-19 case?->No Surveillance testing for transplant patient?->No Cristobal Dong MD LAB MICROBIOLOGY - GENERAL ORD ERABLES Final Result [facility] [place] [address] * XR Chest Pa Lateral 2 Views (03/21/2021 2:57 PM RENTAL SALES REPRESENTATIVE) Anatomical Region Laterality Modality Body, Chest N/A Computed Radiogr aphy 03/21/2021 3:37 PM RENTAL SALES REPRESENTATIVE Impressions 03/21/2021 4:29 PM RENTAL SALES REPRESENTATIVE Comparison is made to prior chest radiograph dated 07/26/2020 3:38 PM. Cardiac silhouette and mid sternal contours are stable. Lungs are clear. No pleural effusion or pneumothorax. Dictated by: Shady Riggs M.D. The radiology attending physician has personally reviewed this study, and had reviewed and/or edited this written report and agrees with it. Electronically signed by: Kristen Gentile M.D. Narrative 03/21/2021 4:29 PM RENTAL SALES REPRESENTATIVE EXAMINATION: 2 view chest radiograph Procedure Note [...] 01/11/2021 added in this encounter Care Teams Focused Factory Manager Relationship Specialty Start Date End Date Ravi Smith MD PCP - General 11/04/17 09/27/21 Aft, Kianna Machado MD PhD [address] [place] [address] Surgeon Surgical Oncology 11/22/17 Santiago Gilbert MD [address] [place] [address] Product Tester Gastroenterology 11/22/17 Dmitry Sanderson MD [address] [place] [address] Referring Physician Colon and Rectal Surgery 12/03/1805/06 Abbi Ventura MD [address] [facility] [address] [place] [address] Medical Oncologist/Gristmiller Medical Oncology 12/03/18 Montse Thompson MD [address] [facility] [address] [place] [address] Consulting Physician Gynecologic Oncology 12/03/18 Lela Hardy MD PhD [address] [facility] [address] [place] [address] Radiation Oncologist Radiation Oncology 12/23/18 Aft, Kianna Machado MD PhD [address] [facility] [address] [place] [address] Surgeon Surgical Oncology 12/23/18 09/17/21 documented as of this encounter
--- OUTSIDE RECORDS SUMMARY | 2024-04-24 14:49 | XMS_ITS | Encounter Summary ---
Author Organization [facility] Address [address] [place] [address] Phone Care Team Providers Care Triple Valve Mechanic Name Role Phone Ravi Smith MD Primary Care Provider [phone] Aft, Kianna Machado MD PhD Unavailable [phone] Santiago Gilbert MD Unavailable [phone] Dmitry Sanderson MD Unavailable [phone] Abbi Ventura MD Unavailable Montse Thompson MD Unavailable [phone] Lela Hardy MD PhD Unavailable [phone] Aft, Kianna Machado MD PhD Unavailable [phone] Encounter Details Date Type Department Care Team (Late st Contact Info) Description 12/23/2020 Orders Only [facility] [address] [place] [address] Abbi Ventura MD [address] [place], [place] [id number] Social History Tobacco Use Types Packs/Day Years [...] on file Legal Sex Female 1:06 AM SOURCING INTER[employer] Gender Identity Not on file Sexual [...] documented as of this encounter Care Teams Triple Valve Mechanic Relationship Specialty Start Date End Date Ravi Smith MD PCP - General 11/04/17 09/27/21 Aft, Kianna Machado MD PhD [address] [place] [address] Surgeon Surgical Oncology 11/22/17 Santiago Gilbert MD [address] [place] [address] Varnish Remover Gastroenterology 11/22/17 Dmitry Sanderson MD [address] [place] [address] Referring Physician Colon and Rectal Surgery 12/03/1805/06 Abbi Ventura MD [address] [facility] [address] [place] [address] Medical Oncologist/Deputy Chief Magistrate Medical Oncology 12/03/18 Montse Thompson MD [address] [facility] [address] [address] [place] [address] Consulting Physician Gynecologic Oncology 12/03/18 Lela Hardy MD PhD [address] [facility] [address] [place], [place] [id number] Radiation Oncologist Radiation Oncology 12/23/18 Aft, Kianna Machado MD PhD [address] [facility] [place] [address] Surgeon Surgical Oncology 12/23/18 09/17/21 documented as of this encounter
--- OUTSIDE RECORDS SUMMARY | 2024-04-24 14:49 | XMS_ITS | Encounter Summary ---
Author Organization [facility] Address [address] [facility] [address] [place] [address] Care Team Providers Care Watershed Manager Name Role Phone Ravi Smith MD Primary Care Provider [phone] Aft, Kianna Machado MD PhD Unavailable [phone] Santiago Gilbert MD Unavailable [phone] Dmitry Sanderson MD Unavailable [phone] Abbi Ventura MD Unavailable Montse Thompson MD Unavailable [phone] Lela Hardy MD PhD Unavailable [phone] Aft, Kianna Machado MD PhD Unavailable [phone] Reason for Referral * Neurology (Routine) - Closed Specialty Diagnoses / Procedures Referred By Contac t Referred To Contact Diagnoses Neuropathy ([facility]) Procedures EMG/NCV -Please select the performing region: [facility] (All Locations); Procedure performed at: [facility] EMG Lab; Clinical Summary: generalized paresthesias and dysesthesias, previous chemo; Reason for referral or diagnostic question: ?... Hiwot Walters NP Phone: tel: fax: [facility] (All Locations) Referral ID Status Reason Start Date Expiration Date Visits Re quested Visits Authorized [id number] Closed 10/25/2020 11/24/2021 1 1 Reason for Visit * Reason Comments New Patient Neuropathy full body- head to t oe * Consultation (Routine) - Closed Specialty Diagnoses / Procedures Referred By Vijaya t Referred To Contact Neurology Diagnoses Neuropathy (CMS/HCC) Abbi Ventura MD [address] [facility] [address] [place] [address] Phone: tel: fax: [facility] Medical [facility] Neurology [address] [place] [address] [place] [address] Phone: tel: fax: Referral ID Status Reason Start Date Expiration Date V isits Requested Visits Authorized [id number] Closed Specialty Services Required 10/07/2020 11/06/2021 1 1 Encounter Details Date Type Department Care Team (Late st Contact Info) Description 10/25/2020 1:00 PM CDT Office Visit [facility] Neurology [address] [place] [address] Hiwot Walters NP [facility] [address] [address] Neuropathy (CMS/HCC) (Primary Dx); Malignant [...] on file Legal Sex Female 1:06 AM 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 -[id number] time spent with patient was approximately 35 [...] tissue disease. She was previously seen by [facility] neuromuscular Clinic and diagnosed with drug-induced polyneuropathy. [...] Gatherings with Friends and Family: ??? Attends Religion Services: ??? Active Member of Clubs or [...] * EMG/NCV -Please select the performing region: [facility] (All Locations); Procedure performed at: [facility] EMG Lab; Clinical Summary: generalized paresthesias and dysesthesias, previous chemo; Reason for referral or diagnostic question: ?... (11/16/2020) Anatomical Region Laterality Modality Other us Hiwot Walters MANAGER MOBILITY NEUROLOGY ORDERABLES Final R esult documented in [...] 10/25/2020 documented in this encounter Care Teams Watershed Manager Relationship Specialty Start Date End Date Ravi Smith MD PCP - General 11/04/17 09/27/21 Aft, Kianna Machado MD PhD [address] [place] [address] Surgeon Surgical Oncology 11/22/17 Santiago Gilbert MD [address] [place] [address] Oracle Bpm Developer Gastroenterology 11/22/17 Dmitry Sanderson MD [address] [place], [place] [id number] Referring Physician Colon and Rectal Surgery 12/03/1805/06 Abbi Ventura MD [address] [facility] [address] [place], [place] [id number] Medical Oncologist/Sand Shoveler Medical Oncology 12/03/18 Montse Thompson MD [address] [facility] [address] [place], [place] [address] Consulting Physician Gynecologic Oncology 12/03/18 Lela Hardy MD PhD [address] [place], [place] [id number] Radiation Oncologist Radiation Oncology 12/23/18 Aft, Kianna Machado MD PhD [address] [facility] [address] [place], [place] [address] Surgeon Surgical Oncology 12/23/18 09/17/21 documented as of this encounter
--- OUTSIDE RECORDS SUMMARY | 2024-04-24 14:49 | XMS_ITS | Encounter Summary ---
Author Organization [facility] Address [address] [place] [address] Care Team Providers Care Balancer Name Role Phone Ravi Smith MD Primary Care Provider [phone] Aft, Kianna Machado MD PhD Unavailable [phone] Santiago Gilbert MD Unavailable [phone] Dmitry Sanderson MD Unavailable [phone] Abbi Ventura MD Unavailable Montse Thompson MD Unavailable [phone] Lela Hardy MD PhD Unavailable [phone] Aft, Kianna Machado MD PhD Unavailable [phone] Reason for Referral * Diagnostic Imaging (Routine) - Closed Specialty Diagnoses / Procedures Referred By Vijaya simpson Referred To Contact Diagnoses Encounter for screening mammogram for malignant neoplasm of breast Procedures Screening Mammogram Bilateral [address] [place] Screening Mammogram, Self [address] [address] Referral ID Status Reason Start Date Expiration Date Visits Re quested Visits Authorized [id number] Closed 08/30/2020 09/29/2021 1 1 Reason for Visit * Diagnostic Imaging (Routine) - Closed Specialty Diagnoses / Procedures Referred By Vijaya simpson Referred To Contact Diagnoses Encounter for screening mammogram for malignant neoplasm of breast Procedures Screening Mammogram Bilateral [address] Screening Mammogram, Self [facility] [address] [place] [address] Referral ID Status Reason Start Date Expiration Date Visits Re quested Visits Authorized [id number] Closed 08/30/2020 09/29/2021 1 1 Encounter Details Date Type Department Care Team (Latest Contact Info) Description 10/06/2020 3:22 PM CDT - 10/06/2020 11:59 PM CDT Hospital Encounter [facility] Advanced Medicine Breast Imaging 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 The [...] compared to prior imaging studies performed at [facility] on 12/02/2006, and at [facility] on 11/05/2017 and 08/11/2018. The [...] breast documented in this encounter Care Teams Balancer Relationship Specialty Start Date End Date Ravi Smith MD PCP - General 11/04/17 09/27/21 Aft, Kianna Machado MD PhD [address] [place] [address] Surgeon Surgical Oncology 11/22/17 Santiago Gilbert MD [address] [place] [address] Bilingual Recruiter Gastroenterology 11/22/17 Dmitry Sanderson MD [address] [place] [address] Referring Physician Colon and Rectal Surgery 12/03/1805/06 Abbi Ventura MD [address] [facility] [address] [place] [address] Medical Oncologist/Technician Trainee Medical Oncology 12/03/18 Montse Thompson MD [address] [facility] [address] [place] [address] Consulting Physician Gynecologic Oncology 12/03/18 Lela Hardy MD PhD [address] [facility] [address] [place] [address] Radiation Oncologist Radiation Oncology 12/23/18 Aft, Kianna Machado MD PhD [address] [place] [address] Surgeon Surgical Oncology 12/23/18 09/17/21 documented as of this encounter
--- OUTSIDE RECORDS SUMMARY | 2024-04-24 14:49 | XMS_ITS | Encounter Summary ---
Author Organization [facility] Address [address] [place] [address] Care Team Providers Care Installation Service Representative Name Role Phone Ravi Smith MD Primary Care Provider [phone] Aft, Kianna Machado MD PhD Unavailable [phone] Santiago Gilbert MD Unavailable [phone] Dmitry Sanderson MD Unavailable [phone] Abbi Ventura MD Unavailable Montse Thompson MD Unavailable [phone] Lela Hardy MD PhD Unavailable [phone] Aft, Kianna Machado MD PhD Unavailable Encounter Details Date Type Department Care Team (Late st Contact Info) Description 03/21/2021 6:00 PM GENERAL AGENT Lab [facility] of [address] [address] Asthma-COPD overlap syndrome (CMS/HCC) (HCC) Social History [...] on file Legal Sex Female 1:06 AM GENERAL AGENT Gender Identity Not on file Sexual Orientation Not on file documented as of this encounter Plan of Treatment Not on file documented as of this encounter Procedures Procedure Name Priority Date/Time Associated Diagnosis Comments RESPIRATORY PATHOGEN PANEL Routine 03/21/2021 3:32 PM GENERAL AGENT Asthma-COPD overlap syndrome (CMS/HCC) (HCC) documented in this encounter Results * Respiratory pathogen panel Nasopharyngeal (03/21/2021 3:32 PM GENERAL AGENT) Pathologist [facility] Influenza A RNA Not Detected Not Detected [facility] Influenza B RNA Not Detected Not Detected [facility] RSV RNA Not Detected Not Detected [facility] COVID-19 RNA Not Detected Not Detected [facility] Coronavirus 229E RNA Not Detected Not Detected [facility] Coronavirus HKU1 RNA Not Detected Not Detected [facility] Coronavirus NL63 RNA Not Detected Not Detected [facility] Coronavirus OC43 RNA Not Detected Not Detected [facility] Adenovirus DNA Not Detected Not Detected [facility] Metapneumovirus RNA Not Detected Not Detected [facility] Rhinovirus/Enterov irus RNA Not Detected Not Detected [facility] Parainfluenza 1 RNA Not Detected Not Detected [facility] Parainfluenza 2 RNA Not Detected Not Detected [facility] Parainfluenza 3 RNA Not Detected Not Detected [facility] Parainfluenza 4 RNA Not Detected Not Detected [facility] B. pertussis DNA Not Detected Not Detected [facility] B. parapertussis DNA Not Detected Not Detected [facility] C. pneumoniae DNA Not Detected Not Detected [facility] M. pneumoniae DNA Not Detected Not Detected [facility] First COVID-19 test? Unknown [facility] Employeed in healthcare? No [facility] status? No [facility] Group care resident? No [facility] Hospitalized? No [facility] Is patient in ICU? No [facility] Symptomatic as defined by CDC? No [facility] Nasopharyngeal 03/21/2021 3: 32 PM GENERAL AGENT 03/21/2021 6:51 PM GENERAL AGENT Narrative [facility] - 03/21/2021 7:53 PM GENERAL AGENT Reason for testing?->Symptomatic (not immunocompromised) Known exposure to confirmed or suspected COVID-19 case?->No Surveillance testing for transplant patient?->No Cristobal Dong MD LAB MICROBIOLOGY - GENERAL ORD ERABLES Final Result [facility] Department [place] [address] documented in this encounter Visit Diagnoses Diagnosis Asthma-COPD overlap syndrome (HCC) documented in this encounter Care Teams Installation Service Representative Relationship Specialty Start Date End Date Ravi Smith MD PCP - General 11/04/17 09/27/21 Aft, Kianna Machado MD PhD [address] [place] [address] Surgeon Surgical Oncology 11/22/17 Santiago Gilbert MD [address] [place] [address] Peoplesoft Consultant Gastroenterology 11/22/17 Dmitry Sanderson MD [address] [place] [address] Referring Physician Colon and Rectal Surgery 12/03/1805/06 Abbi Ventura MD [address] [facility] [address] [place] [address] Medical Oncologist/Wood Getter Medical Oncology 12/03/18 Montse Thompson MD [address] [facility] [address] [place] [address] Consulting Physician Gynecologic Oncology 12/03/18 Lela Hardy MD PhD [address] [facility] [address] [place] [address] Radiation Oncologist Radiation Oncology 12/23/18 Aft, Kianna Machado MD PhD [address] [facility] [address] [place] [address] Surgeon Surgical Oncology 12/23/18 09/17/21 documented as of this encounter
--- OUTSIDE RECORDS SUMMARY | 2024-04-24 14:49 | XMS_ITS | Encounter Summary ---
Author Organization [facility] Address [address] [place] [address] Phone Care Team Providers Care Faucets Assembler Name Role Phone Ravi Smith MD Primary Care Provider [phone] Aft, Kianna Machado MD PhD Unavailable Santiago Gilbert MD Unavailable [phone] Dmitry Sanderson MD Unavailable [phone] Abbi Ventura MD Unavailable Montse Thompson MD Unavailable [phone] Lela Hardy MD PhD Unavailable [phone] Aft, Kianna Machado MD PhD Unavailable [phone] Reason for Visit * Diagnostic Imaging (Routine) - Closed Specialty Diagnoses / Procedures Referred By Contac t Referred To Contact Diagnoses Leg weakness, bilateral Procedures US Arterial Doppler Lower Extremity Exercise Lizbeth May MD 10 [facility] [address] [place] [address] Phone: tel: fax: [facility] (All Locations) Referral ID Status Reason Start Date Expiration Date Visits Re quested Visits Authorized [id number] Closed 10/14/2020 11/13/2021 1 1 Encounter Details Date Type Department Care Team (Latest Contact Info) Description 10/25/2020 8:00 AM CDT Ancillary Procedure [facility] at [facility] [address] 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 Indications: Leg weakness, bilateral Intermittent Claudication. Measurements: Right - ?Left - ? Measurement ?Value ?Units ?Measurement ?Value ?Units ? Rt Brachial Pressure ? 169 ?mmHg ? Lt Brachial Pressure ? 171 ?mmHg ? Rt FLUORESCENT SOLUTION MIXER Pressure ?193 ?mmHg ? Lt FLUORESCENT SOLUTION MIXER Pressure ?184 ?mmHg ? Rt DPA Pressure [...] - ?Left - ? - Findings: Performing Consulting Solution Director: Uzma Preston RVT. Bilateral All Levels : [...] performed. Electronically Signed By: Kavon Lawson MD [facility] [phone] 2020-10-25 16:35:51 CDT CC: CC: Procedure Note Kavon Lawson MD - 10/25/2020 [facility] - Department of Vascular Surgery,Vascular Laboratory [address] [place] [address] Lower Extremity Arterial Doppler Report Patient Name: ALEAH GERBER APatient ID: [id number] : [id number] Date: 10/25/2020 8:27:00 AM Gender: FAccession #: [id number] Tech: Uzma Preston RVTLocation[facility] Ref.Provider: MAY, DEBORAHQuality: Adequate Order Provider: LIZBETH MAY Procedures: Arterial Report: Bilateral lower extremity arterial Doppler exam at rest and with treadmillexercise. Indications: Leg weakness, bilateral Intermittent Claudication. Measurements: Right - Left - Measurement Value Units Measurement ValueUnits Rt Brachial Pressure 169 mmHg Lt Brachial Pressure 171mmHg Rt FLUORESCENT SOLUTION MIXER Pressure 193 mmHg Lt FLUORESCENT SOLUTION MIXER Pressure 184mmHg Rt DPA Pressure 189 mmHg Lt DPA Pressure 173mmHg Rt 1st Digit Pressure 123 mmHg Lt 1st Digit Pressure 130mmHg Rt PT NEIDA Resting 1.13 Lt PT NEIDA Resting 1.08 Rt AT NEIDA Resting 1.11 Lt AT NEIDA Resting 1.01 Rt Digit/Arm Index 0.72 Lt Digit/Arm Index 0.76 Measurement Value Units Measurement ValueUnits Right - Left - - Findings: Performing Consulting Solution Director: Uzma Preston RVT. Bilateral All Levels : [...] performed. Electronically Signed By: Kavon Lawson MD [facility] [phone] 2020-10-25 16:35:51 CDT CC: CC: us Lizbeth May MD IMG US PROCEDURES Final Resu lt documented in this encounter Visit Diagnoses Diagnosis Leg weakness, bilateral Muscle weakness (generalized) documented in this encounter Care Teams Faucets Assembler Relationship Specialty Start Date End Date Ravi Smith MD PCP - General 11/04/17 09/27/21 Kianna Bunch MD PhD [address] [place] [address] Surgeon Surgical Oncology 11/22/17 Santiago Gilbert MD [address] [place] [address] Disulfurizer Tender Gastroenterology 11/22/17 Dmitry Sanderson MD [address] [place] [address] Referring Physician Colon and Rectal Surgery 12/03/1805/06 Abbi Ventura [facility] [address] [place] [address] Medical Oncologist/Child Life Assistant Medical Oncology 12/03/18 Montse [place] MD [address] [place] [address] Consulting Physician Gynecologic Oncology 12/03/18 Lela [place] MD PhD [address] [place] [address] Radiation Oncologist Radiation Oncology 12/23/18 Kianna Bunch MD PhD [address] [place] [address] Surgeon Surgical Oncology 12/23/18 09/17/21 documented as of this encounter
--- OUTSIDE RECORDS SUMMARY | 2024-04-24 14:49 | XMS_ITS | Encounter Summary ---
Author Organization [facility] Address [address] [place] [address] Phone Care Team Providers Care Kennel Operator Name Role Phone Ravi Smith MD Primary Care Provider [phone] Aft, Kianna Machado MD PhD Unavailable [phone] Santiago Gilbert MD Unavailable [phone] Dmitry Sanderson MD Unavailable [phone] Abbi Ventura MD Unavailable Montse Thompson MD Unavailable [phone] Lela Hardy MD PhD Unavailable [phone] Aft, Kianna Machado MD PhD Unavailable [phone] Reason for Visit * Neurology (Routine) - Closed Specialty Diagnoses / Procedures Referred By Contac t Referred To Contact Diagnoses Neuropathy ([facility]) Procedures EMG/NCV -Please select the performing region: [facility] (All Locations); Procedure performed at: [facility] EMG Lab; Clinical Summary: generalized paresthesias and dysesthesias, previous chemo; Reason for referral or diagnostic question: ?... Hiwot Walters NP Phone: tel: fax: [facility] (All Locations) Referral ID Status Reason Start Date Expiration Date Visits Re quested Visits Authorized [id number] Closed 10/25/2020 11/24/2021 1 1 Encounter Details Date Type Department Care Team (Latest Contact Info) Description 11/16/2020 1:40 PM CDT Procedure visit 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 Procedures [facility] DEPARTMENT OF NEUROLOGY NEUROMUSCULAR ELECTRODIAGNOSTIC LABORATORY CLINICAL ELECTROMYOGRAPHY REPORT Patient: Aleah Gerber Birthdate: 1955 Study No: [id number] MRN No: [id number] Referring M.Toñito.: Hiwot Walters NP Date of [...] Fax no.: . Our correspondence address : [place] [address] [facility] Neurology, EMG Lab [employer], [place] Data Report Full Name: Aleah Gerber [...] * EMG/NCV -Please select the performing region: [facility] (All Locations); Procedure performed at: [facility] Lab; Clinical Summary: generalized paresthesias and dysesthesias, previous chemo; Reason for referral or diagnostic question: ?... (11/16/2020) Anatomical Region Laterality Modality Other Hiwot Walters LITHOGRAPH PRESS OPERATOR NEUROLOGY ORDERABLES Final R esult documented in this encounter Visit Diagnoses Diagnosis Neuropathy (CMS/HCC) Mononeuritis of unspecified site documented in this encounter Care Teams Kennel Operator Relationship Specialty Start Date End Date Ravi Smith MD PCP - General 11/04/17 09/27/21 Kianna Bunch MD PhD [address] [place] [address] Surgeon Surgical Oncology 11/22/17 Santiago Gilbert MD [address] [place] [address] Monotypist Gastroenterology 11/22/17 Dmitry Sanderson MD [address] [place] [address] Referring Physician Colon and Rectal Surgery 12/03/1805/06 Abbi Ventura MD [address] [place] [address] [address] [place] [address] Medical Oncologist/Medical Sonographer Medical Oncology 12/03/18 Montse Thompson MD [address] [place] [address] [address] [place] [address] Consulting Physician Gynecologic Oncology 12/03/18 eLla Hardy MD PhD [address] [place] [address] [address] [place] [address] Radiation Oncologist Radiation Oncology 12/23/18 Kianna Bunch MD PhD [address] [place] [address] [address] [place] [address] Surgeon Surgical Oncology 12/23/18 09/17/21 documented as of this encounter
--- OUTSIDE RECORDS SUMMARY | 2024-04-24 14:49 | XMS_ITS | Encounter Summary ---
Author Organization [facility] Address [address] [place] [address] Phone Care Team Providers Care Flattening Press Operator Name Role Phone Ravi Smith MD Primary Care Provider [phone] Aft, Kianna Machado MD PhD Unavailable [phone] Santiago Gilbert MD Unavailable [phone] Dmitry Sanderson MD Unavailable [phone] Abbi Ventura MD Unavailable Montse Thompson MD Unavailable [phone] Lela Hardy MD PhD Unavailable [phone] Aft, Kianna Machado MD PhD Unavailable [phone] Reason for Referral * MRI/CAT/PET Scan (Routine) - Closed Specialty Diagnoses / Procedures Referred By Contac t Referred To Contact Radiology Diagnoses Malignant neoplasm of upper-inner quadrant of left breast in female, 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) Procedures MRI Breast Bilateral W WO Contrast Abbi Ventura MD [address] [facility] [address] [place] [address] Phone: tel: fax: [facility] Referral ID Status Reason Start Date Expiration Date Visits Re quested Visits Authorized [id number] Closed 03/23/2021 04/22/2022 1 1 SOFTWARE TEST ENGINEER Encounter Details Date Type Department Care Team (Late st Contact Info) Description 03/23/2021 3:00 PM QA SOFTWARE TEST ENGINEER Office Visit [facility] Oncology [address] [place] [address] Abbi Ventura MD [address] [facility] [address] [place] [address] Malignant neoplasm of upper-inner quadrant of left [...] on file Legal Sex Female 1:06 AM QA SOFTWARE TEST ENGINEER Gender Identity Not on file Sexual Orientation Not on file documented as of this encounter Last Filed Vital Signs Vital Sign Reading Time Taken Comments Blood Pressure 127/77 03/23/2021 2:16 PM QA SOFTWARE TEST ENGINEER Pulse 110 03/23/2021 2:16 PM QA SOFTWARE TEST ENGINEER Temperature 36.5 ??C (97.7 ??F) 03/23/2021 2:16 PM CS T Respiratory Rate 16 03/23/2021 2:16 PM QA SOFTWARE TEST ENGINEER Oxygen Saturation 98% 03/23/2021 2:16 PM QA SOFTWARE TEST ENGINEER Inhaled Oxygen Concentration - - Weight 116.4 kg (256 lb 9.6 oz) 03/23/2021 2:16 PM QA SOFTWARE TEST ENGINEER Height - - Body Mass Index 37.89 03/21/2021 1:53 PM QA SOFTWARE TEST ENGINEER documented in this encounter Progress Notes * [...] positive and VUS in BRIP1 and NBN. [employer] My risk showed no mutation in [...] Burger, MSN, AGNP Nurse Practitioner, Medical Oncology SOFTWARE TEST ENGINEER documented in this encounter Plan of Treatment Not on file documented as of this encounter Results * (ABNORMAL) Comprehensive metabolic panel (09/21/2021 1:55 PM CDT) Sodium 139 135 - 145 mmol/L [facility] Comment:Testing performed by : [facility], [address] [place] [address] Potassium, pl 4.0 3.3 - 4.9 mmol/L [facility] Chloride 107 97 - 110 mmol/L [facility] CO2 23 22 - 32 mmol/L [facility] Anion gap 9 2 - 15 mmol/L [facility] BUN 20 8 - 25 mg/dL [facility] Creatinine 1.51(H) 0.60 - 1.10 mg/dL [facility] Glucose 121 70 - 199 mg/dL [facility] [...] 2017. Calcium 9.6 8.5 - 10.3 mg/dL [facility] Bilirubin, total 0.4 0.1 - 1.2 mg/dL [facility] Protein, pl 7.0 6.5 - 8.5 g/dL [facility] Albumin 4.4 3.5 - 5.0 g/dL [facility] Alk phos 111 40 - 130 Units/L [facility] ALT 13 7 - 45 Units/L [facility] AST 22 10 - 45 Units/L [facility] Blood 09/21/2021 1:55 PM CDT 09/21/2021 1:57 PM CDT Abbi Ventura MD LAB BLOOD ORDERABLES Final Resul t Performing Organization Address City/State/[facility] Co de Phone Number [facility] Department [place] [address] * CEA (09/21/2021 1:55 PM CDT) CEA 1.8 <=5.0 ng/mL [facility] Comment: Interpretive Data: Reference Range: Non-Smokers: [...] ORDERABLES Final Resul t Performing Organization Address City/State/[facility] Co de Phone Number [facility] Department [place] [address] * (ABNORMAL) CBC with auto differential (09/21/2021 1:55 PM CDT) WBC 7.3 3.8 - 9.9 K/cumm [facility] Comment:Testing performed by : [address] [address] Hgb 12.0 11.9 - 15.5 g/dL [facility] Comment:Testing performed by : [address] [address] Hct 37.4 35.6 - 45.5 % [facility] Comment:Testing performed by : [address] [address] Plt 200 150 - 400 K/cumm [facility] Comment:Testing performed by : [address] [address] MPV 9.7 9.1 - 12.3 fL [facility] RBC 3.97 3.90 - 5.20 M/cumm [facility] MCV 94.2 81.3 - 96.4 fL [facility] MCH 30.2 27.1 - 33.3 pg [facility] MCHC 32.1(L) 32.3 - 35.7 g/dL [facility] RDW CV 13.2 11.1 - 14.9 % [facility] RDW SD 45.3 35.7 - 48.1 fL [facility] NRBC abs 0.00 0.00 - 0.01 K/cumm [facility] Blood 09/21/2021 1:55 PM CDT 09/21/2021 1:57 PM CDT Abbi Ventura MD LAB BLOOD ORDERABLES Final Resul t Performing Organization Address [facility] Co de Phone Number [facility] Department [place] [address] * MRI Breast Bilateral W WO Contrast (05/15/2021 4:27 PM QA SOFTWARE TEST ENGINEER) Anatomical Region Laterality Modality Breast Bilateral Magnetic Resonan ce 05/16/2021 9:43 AM QA SOFTWARE TEST ENGINEER Impressions 05/16/2021 9:43 AM QA SOFTWARE TEST ENGINEER No MR evidence of malignancy. Continued annual surveillance with breast MRI and bilateral mammography recommended. OVERALL FINAL ASSESSMENT: BI-RADS Category 1: Negative. Electronically signed by: Bety Mendoza M.D. Narrative 05/16/2021 9:43 AM QA SOFTWARE TEST ENGINEER EXAMINATION: 1. MRI EXAMINATION OF THE BREASTS [...] microscopic and culture Urine (03/23/2021 4:52 PM QA SOFTWARE TEST ENGINEER) Color, ur Straw Yellow [facility] Clarity, ur Clear Clear [facility] Specific gravity, ur 1.021 1.003 - 1.030 [facility] pH, urine 6 [facility] Protein, ur ql Negative Negative [facility] Glucose, ur ql Negative Negative [facility] Ketones, ur Negative Negative [facility] Bilirubin, ur Negative Negative [facility] Blood, ur Negative Negative [facility] Urobilinogen, ur <2.0 <2.0 mg/dL [facility] Nitrite, ur Negative Negative [facility] Leukocyte esterase, ur Negative Negative [facility] UA reflex comment Reflex conditions for microscopic UA and culture not met. [facility] Urine 03/23/2021 4:52 PM QA SOFTWARE TEST ENGINEER 03/23/2021 7:07 PM QA SOFTWARE TEST ENGINEER Narrative [facility] - 03/23/2021 7:25 PM QA SOFTWARE TEST ENGINEER ?? Urine pH is affected by diet, medications, systemic acid-base disturbances, and renal tubular function. ??pH may affect urinary stone formation. ??For example, urine pH below 6.0 may help reduce the tendency for calcium phosphate stones and pH greater than 6.0 may reduce the tendency for uric acid stone formation. Source: [employer] Response [employer]. Last revised 05-16-2017 us Abbi Ventura MD LAB MICROBIOLOGY - GENERAL ORDER YFN Final Result [facility] Department [place] [address] * (ABNORMAL) Basic metabolic panel (03/23/2021 4:43 PM QA SOFTWARE TEST ENGINEER) Sodium 142 135 - 145 mmol/L [facility] Potassium, pl 4.3 3.3 - 4.9 mmol/L [facility] Chloride 109 97 - 110 mmol/L [facility] CO2 27 22 - 32 mmol/L [facility] Anion gap 6 2 - 15 mmol/L [facility] BUN 32(H) 8 - 25 mg/dL [facility] Creatinine 1.91(H) 0.60 - 1.10 mg/dL [facility] Glucose 152 70 - 199 mg/dL [facility] [...] 8.8 8.5 - 10.3 mg/dL [facility] Blood 03/23/2021 4:43 PM QA SOFTWARE TEST ENGINEER 03/23/2021 4:43 PM QA SOFTWARE TEST ENGINEER Narrative [facility] - 03/23/2021 5:05 PM QA SOFTWARE TEST ENGINEER Recheck BMP after fluids us Abbi Ventura MD LAB BLOOD ORDERABLES Final Resul t [facility] Department [place] [address] documented in this encounter Visit Diagnoses Diagnosis [...] 03/23/2021 documented in this encounter Care Teams Flattening Press Operator Relationship Specialty Start Date End Date Ravi Smith MD PCP - General 11/04/17 09/27/21 Aft, Kianna Machado MD PhD [address] [place] [address] Surgeon Surgical Oncology 11/22/17 Santiago Gilbert MD [address] [place] [address] Juvenile Justice Specialist Gastroenterology 11/22/17 Dmitry Sanderson MD [address] [place] [address] Referring Physician Colon and Rectal Surgery 12/03/1805/06 Abbi Ventura MD [facility] [place] [address] Medical Oncologist/On Awake Counselor Medical Oncology 12/03/18 Montse Thompson MD [address] [place] [address] Consulting Physician Gynecologic Oncology 12/03/18 Lela Hardy MD PhD [address] [place] [address] Radiation Oncologist Radiation Oncology 12/23/18 Aft, Kianna Machado MD PhD [address] [facility] [address] [place] [address] Surgeon Surgical Oncology 12/23/18 09/17/21 documented as of this encounter
--- OUTSIDE RECORDS SUMMARY | 2024-04-24 14:49 | XMS_ITS | Encounter Summary ---
Author Organization [facility] Address [address] [place] [address] Phone Care Team Providers Care Traffic Sergeant Name Role Phone Ravi Smith MD Primary Care Provider [phone] Aft, Kianna Machado MD PhD Unavailable [phone] Santiago Gilbert MD Unavailable Dmitry Sanderson MD Unavailable [phone] Abbi Ventura MD Unavailable Montse Thompson MD Unavailable [phone] Lela Hardy MD PhD Unavailable [phone] Aft, Kianna Machdao MD PhD Unavailable [phone] Reason for Referral * Consultation (Routine) - Closed Specialty Diagnoses / Procedures Referred By Contac t Referred To Contact Endocrinology Diagnoses Type 2 diabetes mellitus with other kidney complication, unspecified whether shelter insulin use (HCC) Lizbeth May MD [address] [facility] [address] [place] [address] Phone: tel: fax: [facility] (All Locations) Referral ID Status Reason Start Date Expiration Date V isits Requested Visits Authorized [id number] Closed Specialty Services Required 10/14/2020 11/13/2021 99 99 Question Answer Please select the performing region: [facility] (All Locations) [167] # of visits: 1 * Diagnostic Imaging (Routine) - Closed Specialty Diagnoses / Procedures Referred By Vijaya simpson Referred To Contact Diagnoses Leg weakness, bilateral Procedures US Arterial Doppler Lower Extremity Exercise Lizbeth May MD [address] [place] [address] Phone: tel: fax: [facility] (All Locations) Referral ID Status Reason Start Date Expiration Date Visits Re quested Visits Authorized [id number] Closed 10/14/2020 11/13/2021 1 1 Reason for Visit * Consultation (Routine) - Closed Specialty Diagnoses / Procedures Referred By Vijaya simpson Referred To Contact Rheumatology Diagnoses Effusion of joint, unspecified location Ravi Smith MD Phone: tel: fax: [facility] (All Locations) Referral ID Status Reason Start Date Expiration Date V isits Requested Visits Authorized [id number] Closed Specialty Services Required 09/27/2020 10/27/2021 1 1 Encounter Details Date Type Department Care Team (Late st Contact Info) Description 10/14/2020 9:00 AM CDT Office Visit 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 and [id number] IIC colon adenocarcinoma.She was 1st diagnosed with [...] Breast Needle Localization partial mastectomy (L), Biopsy [place] Lymph Node With Lymphoscintigraphy (L), Insertion Port [...] mellitus with other kidney complication, unspecified whether termite technician insulin use ([facility]) Relevant Orders Hemoglobin A1c (Completed) [...] mellitus with other kidney complication, unspecified whether shelter insulin use ([facility]) Expected: 10/28/2020 (Approximate), Expires: 10/14/2021 documented as of this encounter Results * US Arterial Doppler Lower Extremity Exercise (10/25/2020 10:08 AM CDT) Anatomical Region Laterality Modality Vascular N/A Ultrasound 10/25/2020 8:27 AM CDT Narrative 10/25/2020 4:35 PM CDT [facility] - Department of Vascular Surgery, Vascular Laboratory [address] [place] [address] Lower Extremity Arterial Doppler Report Patient Name: ALEAH GERBER A : 1955 Study Date: 10/25/2020 8:27:00 AM Gender: F Tech: Uzma Preston [facility] Location: [facility] [place] Ref.Provider: LIZBETH MAY Quality: Adequate Order Provider: LIZBETH MYA Procedures: Arterial Report: Bilateral lower extremity arterial Doppler exam at rest and with treadmill exercise. Indications: Leg weakness, bilateral Intermittent Claudication. Measurements: Right - ?Left - ? Measurement ?Value ?Units ?Measurement ?Value ?Units ? Rt Brachial Pressure ? 169 ?mmHg ? Lt Brachial Pressure ? 171 ?mmHg ? Rt BRAKE OPERATOR SHEET METAL Pressure ?193 ?mmHg ? Lt BRAKE OPERATOR SHEET METAL Pressure ?184 ?mmHg ? Rt DPA Pressure [...] - ?Left - ? - Findings: Performing Buttonhole Tacker: Uzma Preston RVT. Bilateral All Levels : [...] performed. Electronically Signed By: Kavon Lawson MD [facility] [phone] 2020-10-25 16:35:51 CDT CC: CC: Procedure Note Kavon Lawson MD - 10/25/[address] [facility] - Department of Vascular Surgery,Vascular Laboratory [address] [place] [address] Lower Extremity Arterial Doppler Report Patient Name: ALEAH GERBER APatient ID: [id number] : [id number] Date: 10/25/2020 8:27:00 AM Gender: FAccession #: [id number] Tech: Uzma Preston RVTLocation: [facility] [place] Ref.Provider: LIZBETH MAYQuality: Adequate Order Provider: LIZBETH MAY Procedures: Arterial Report: Bilateral lower extremity arterial Doppler exam at rest and with treadmillexercise. Indications: Leg weakness, bilateral Intermittent Claudication. Measurements: Right - Left - Measurement Value Units Measurement ValueUnits Rt Brachial Pressure 169 mmHg Lt Brachial Pressure 171mmHg Rt BRAKE OPERATOR SHEET METAL Pressure 193 mmHg Lt BRAKE OPERATOR SHEET METAL Pressure 184mmHg Rt DPA Pressure 189 mmHg Lt DPA Pressure 173mmHg Rt 1st Digit Pressure 123 mmHg Lt 1st Digit Pressure 130mmHg Rt PT NEIDA Resting 1.13 Lt PT NEIDA Resting 1.08 Rt AT NEIDA Resting 1.11 Lt AT NEIDA Resting 1.01 Rt Digit/Arm Index 0.72 Lt Digit/Arm Index 0.76 Measurement Value Units Measurement ValueUnits Right - Left - - Findings: Performing Buttonhole Tacker: Uzma Preston RVT. Bilateral All Levels : [...] performed. Electronically Signed By: Kavon Lawson MD [facility] [phone] 2020-10-25 16:35:51 CDT CC: CC: Lizbeth May MD IMG US PROCEDURES Final Resu lt * (ABNORMAL) CRP (acute phase) (10/14/2020 10:22 AM CDT) CRP 11.8(H) <=10.0 mg/L LEVAR PEÑALOZA Blood specimen (specimen) 10/14/2020 10:22 AM CDT 10/14/2020 12:37 PM CDT Lizbeth May MD LAB BLOOD ORDERABLES Final R esult LEVAR PEÑALOZA [facility] Department [place] [address] * Protein Electrophoresis, With Reflex, Serum (10/14/2020 10:22 AM CDT) [facility] Protein, sr 7.0 6.2 - 8.2 g/dL [facility] Albumin 4.5 3.2 - 5.0 g/dL [facility] Alpha-1 globulin 0.3 0.2 - 0.4 g/dL [facility] Alpha-2 globulin 0.8 0.5 - 1.0 g/dL [facility] Beta-1 globulin 0.4 0.3 - 0.6 g/dL [facility] Beta-2 globulin 0.4 0.2 - 0.6 g/dL [facility] Gamma globulin 0.6 0.5 - 1.7 g/dL [facility] SPEP interp Please see comment [facility] Comment:No apparent monoclon al peak Blood specimen (specimen) 10/14/2020 10:22 AM CDT 10/14/2020 12:37 PM CDT us Lizbeth May MD LAB BLOOD ORDERABLES Final R esult LEVAR MICHELLE [facility] Department [place] [address] * Anti-phospholipid screen (10/14/2020 10:22 AM CDT) [facility] Cardiolipin, IgG <1.6 <=19.9 GPL U/mL [facility] Comment: Interpretive Data Negative: <20 GPL [...] MARY. These results were obtained with the [employer]lex 2200 System. Cardiolipin IgG values obtained with different manufacturers' assay methods may not be used interchangeably. Current interpretive data was last revised on 2016. Cardiolipin, IgM 1.1 <=19.9 MPL U/mL LEVAR [facility] Comment: Interpretive Data Negative: <20 MPL U/mL [...] antibodies. ??These results were obtained with the [employer]Plex 2200 System. Cardiolipin IgM values obtained [...] will be ACL positive and Beta- 2 AX2vgezzdre. In order to improve specificity, the International Congress on Antiphospholipid Antibodies recommends Beta-2 GP1 antibodies of IgG or IgM isotype ??(> the 99th percentile), obtained twice, at least 12 weeks apart, to support a diagnosis of antiphospholipid syndrome. The cutoff for this assay was developed from data based on the 99th percentile. These results were obtained with the [employer]Plex 2200 System. Beta 2GP1 IgG values [...] factor. ??These results were obtained with the [employer]Plex 2200 System. Beta-2 GP1 IgM values obtained with different manufacturers' assay methods may not be used interchangeably. Current interpretive data was last revised on 2016. Blood specimen (specimen) 10/14/2020 10:22 AM CDT 10/14/2020 12:37 PM CDT us Lizbeth May MD LAB BLOOD ORDERABLES Final R esult LEVAR PEÑALOZA [facility] [place] [address] * ZENA qualitative with reflex to ZENA [...] ORDERABLES Final R esult Performing Organization Address City/[facility] Co de Phone Number LEVAR Joshi [facility] [place] [address] * (ABNORMAL) Albumin Creatinine Ratio, Urine (10/14/2020 10:22 AM CDT) Microalb, Ur 23.5(H) 0.0 - 22.9 mg/L [facility] Random Urine Creatinine 121.8 mg/dL [facility] Microalb/Creat Ratio 19.3 0.0 - 29.9 mg/g [facility] Urine 10/14/2020 10:2 2 AM CDT 10/14/2020 12:02 PM CDT Lizbeth May MD LAB URINE ORDERABLES Final R esult [facility] CORE LAB [facility] * (ABNORMAL) [...] mellitus with other kidney complication, unspecified whether shelter insulin use (HCC) Effusion of joint, unspecified [...] 11/30/2020 documented in this encounter Care Teams Traffic Sergeant Relationship Specialty Start Date End Date Ravi Smith MD PCP - General 11/04/17 09/27/21 AftKianna MD PhD [address] [place] [address] Surgeon Surgical Oncology 11/22/17 Santiago Gilbert MD [address] [place] [address] Paper Processing Machine Helper Gastroenterology 11/22/17 Dmitry Sanderson MD [address] [place] [address] Referring Physician Colon and Rectal Surgery 12/03/1805/06 Abbi Ventura MD [address] [place] [address] [address] [place] [address] Medical Oncologist/Postal Mail Carrier Medical Oncology 12/03/18 Montse Thompson MD [address] [facility] [address] [place] [address] Consulting Physician Gynecologic Oncology 12/03/18 Lela Hardy MD PhD [address] [place] [address] Radiation Oncologist Radiation Oncology 12/23/18 Aft, Kianna Machado MD PhD [address] [facility] [address] [place], [place] [id number] Surgeon Surgical Oncology 12/23/18 09/17/21 documented as of this encounter
--- OUTSIDE RECORDS SUMMARY | 2024-04-24 14:49 | XMS_ITS | Encounter Summary ---
Author Organization [email or web address] [facility] Address [address] [place] [address] Phone Care Team Providers Care Internet Marketing Coordinator Name Role Phone Ravi Smith MD Primary Care Provider [phone] Aft, Kianna Machado MD PhD Unavailable [phone] Santiago Gilbert MD Unavailable [phone] Dmitry Sanderson MD Unavailable [phone] Abbi Ventura MD Unavailable Montse Thompson MD Unavailable [phone] Lela Hardy MD PhD Unavailable [phone] Aft, Kianna Machado MD PhD Unavailable [phone] Encounter Details Date Type Department Care Team (Late st Contact Info) Description 03/22/2021 Telephone [facility] Pulmonary [address] [facility] 8th [place] [address] [place] [phone] Leroy Cuellar RMA Social History Tobacco Use [...] on file 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 Dong. Thanks, Jovita ----- Message ----- From: Leroy Cuellar LUPILLO Sent: 03/21/2021 2:47 PM DRIVING INSTRUCTOR To: Adelina Morton RN Subject: follow up Jovita, September I have a [address] Dong? Thanks, Julien'louise ING INSTRUCTOR documented in this encounter Plan of Treatment Not on file documented as of this encounter Visit Diagnoses Not on filedocumented in this encounter Care Teams Internet Marketing Coordinator Relationship Specialty Start Date End Date Ravi Smith MD PCP - General 11/04/17 09/27/21 Aft, Kianna Machado MD PhD [address] [place] [address] Surgeon Surgical Oncology 11/22/17 Santiago Gilbert MD [address] [place] [address] Inventory Auditor Gastroenterology 11/22/17 Dmitry Sanderson MD [address] [place], [place] [address] Referring Physician Colon and Rectal Surgery 12/03/1805/06 Abbi Ventura MD [address] [facility] [address] [place], [place] [id number] Medical Oncologist/Master At Arms Medical Oncology 12/03/18 Montse Thompson MD [address] [facility] [address] [place], [place] [id number] Consulting Physician Gynecologic Oncology 12/03/18 Lela Hardy MD PhD [address] [facility] [address] [place] [address] Radiation Oncologist Radiation Oncology 12/23/18 Aft, Kianna Machado MD PhD [address] [facility] [address] [place], [place] [address] Surgeon Surgical Oncology 12/23/18 09/17/21 documented as of this encounter
--- OUTSIDE RECORDS SUMMARY | 2024-04-24 14:49 | XMS_ITS | Encounter Summary ---
Author Organization [facility] Address [address] [place] [address] Care Team Providers Care Third Helper Name Role Phone Ravi Smith MD Primary Care Provider [phone] Aft, Kianna Machado MD PhD Unavailable [phone] Santiago Gilbert MD Unavailable [phone] Dmitry Sanderson MD Unavailable [phone] Abbi Ventura MD Unavailable Montse Thompson MD Unavailable [phone] Lela Hardy MD PhD Unavailable [phone] Aft, Kianna Machado MD PhD Unavailable Reason for Referral * Diagnostic Imaging (Routine) - Closed Specialty Diagnoses / Procedures Referred By Contac t Referred To Contact Diagnoses Asthma-COPD overlap syndrome (HCC) Procedures XR Chest Pa Lateral 2 Views Cristobal Dong MD [address] [facility] [address] [place] [address] Phone: tel: fax: [address] [address] Referral ID Status Reason Start Date Expiration Date Visits Re quested Visits Authorized [id number] Closed 03/21/2021 04/20/2022 1 1 IPLE PUNCH PRESS OPERATOR Reason for Visit * Diagnostic Imaging (Routine) - Closed Specialty Diagnoses / Procedures Referred By Contronny t Referred To Contact Diagnoses Asthma-COPD overlap syndrome (HCC) Procedures XR Chest Pa Lateral 2 Views Cristobal Dong MD [address] [place] [address] Phone: tel: fax: [facility] [address] [facility] [place] [address] Referral ID Status Reason Start Date Expiration Date Visits Re quested Visits Authorized [id number] Closed 03/21/2021 04/20/2022 1 1 Encounter Details Date Type Department Care Team (Latest Contact Info) Description 03/21/2021 2:54 PM MULTIPLE PUNCH PRESS OPERATOR - 03/21/2021 11:59 PM MULTIPLE PUNCH PRESS OPERATOR Hospital Encounter [facility] Radiology [facility] [address] [place] [id number] Cristobal Dong MD [address] [place] [address] Asthma-COPD overlap syndrome (CMS/HCC) (HCC) [...] on file Legal Sex Female 1:06 AM MULTIPLE PUNCH PRESS OPERATOR Gender Identity Not on file [...] Read Routine (OP Routine) 03/21/2021 2:57 PM MULTIPLE PUNCH PRESS OPERATOR Asthma-COPD overlap syndrome (CMS/HCC) (HCC) documented in this encounter Results * XR Chest Pa Lateral 2 Views (03/21/2021 2:57 PM MULTIPLE PUNCH PRESS OPERATOR) Anatomical Region Laterality Modality Body, Chest N/A Computed Radiogr aphy 03/21/2021 3:37 PM MULTIPLE PUNCH PRESS OPERATOR Impressions 03/21/2021 4:29 PM MULTIPLE PUNCH PRESS OPERATOR Comparison is made to prior chest radiograph dated 07/26/2020 3:38 PM. Cardiac silhouette and mid sternal contours are stable. Lungs are clear. No pleural effusion or pneumothorax. Dictated by: Shady Riggs M.D. The radiology attending physician has personally reviewed this study, and had reviewed and/or edited this written report and agrees with it. Electronically signed by: Kristen Gentile M.D. Narrative 03/21/2021 4:29 PM MULTIPLE PUNCH PRESS OPERATOR EXAMINATION: 2 view chest radiograph Procedure Note [...] (HCC) documented in this encounter Care Teams Third Helper Relationship Specialty Start Date End Date Ravi Smith MD PCP - General 11/04/17 09/27/21 Aft, Kianna Machado MD PhD [address] [place] [address] Surgeon Surgical Oncology 11/22/17 Santiago Gilbert MD [address] [place] [address] Sole Ruffer Gastroenterology 11/22/17 Dmitry Sanderson MD [address] [place], [place] [id number] Referring Physician Colon and Rectal Surgery 12/03/1805/06 Abbi Ventura MD [address] [facility] [address] [place], [place] [phone] Medical Oncologist/Heel Boom Operator Medical Oncology 12/03/18 Montse Thompson MD [address] [facility] [address] [place], [place] [phone] Consulting Physician Gynecologic Oncology 12/03/18 Lela Hardy MD PhD [address] [facility] [address] [place], [place] [id number] Radiation Oncologist Radiation Oncology 12/23/18 Aft, Kianna Machado MD PhD [address] [facility] [address] [place], [place] [id number] Surgeon Surgical Oncology 12/23/18 09/17/21 documented as of this encounter
--- OUTSIDE RECORDS SUMMARY | 2024-04-24 14:49 | XMS_ITS | Encounter Summary ---
Author Organization [facility] Healthcare Address [address] [place] [address] Care Team Providers Care Monorail Hooker Name Role Phone Ravi Smith MD Primary Care Provider [phone] Aft, Kianna Machado MD PhD Unavailable Santiago Gilbert MD Unavailable [phone] Dmitry Sanderson MD Unavailable [phone] Abbi Ventura MD Unavailable Montse Thompson MD Unavailable [phone] Lela Hardy MD PhD Unavailable [phone] Aft, Kianna Machado MD PhD Unavailable [phone] Reason for Referral * Diagnostic Imaging (Routine) - Closed Specialty Diagnoses / Procedures Referred By Contac t Referred To Contact Diagnoses Malignant neoplasm of upper-inner quadrant of left breast in female, 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) Procedures NM Bone Imaging Whole Body Abbi Ventura MD [address] [facility] [address] [place] [address] Phone: tel: fax: [address] [address] Referral ID Status Reason Start Date Expiration Date Visits Re quested Visits Authorized [id number] Closed 09/29/2020 10/29/2021 2 2 Reason for Visit * Diagnostic Imaging (Routine) - Closed Specialty Diagnoses / Procedures Referred By Vijaya t Referred To Contact Diagnoses Malignant neoplasm of upper-inner quadrant of left breast in female, 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) Procedures NM Bone Imaging Whole Body Abbi Ventura MD [address] [facility] [address] [place] [address] Phone: tel: fax: [address] [address] Referral ID Status Reason Start Date Expiration Date Visits Re quested Visits Authorized [id number] Closed 09/29/2020 10/29/2021 2 2 Encounter Details Date Type Department Care Team (Latest Contact Info) Description 10/06/2020 11:00 AM CDT - 10/06/2020 11:17 AM CDT Hospital Encounter [facility] Radiology [address] [place] [address] Abbi Ventura MD [address] [facility] [address] [place] [address] Malignant neoplasm of upper-inner quadrant [...] on file Legal Sex Female 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 Abbi Ventura MD [facility] PROCEDURES Final Result documented in this [...] 10/06/2020 documented in this encounter Care Teams Monorail Hooker Relationship Specialty Start Date End Date Ravi Smith MD PCP - General 11/04/17 09/27/21 AileentKianna MD PhD [address] [place] [address] Surgeon Surgical Oncology 11/22/17 Santiago Gilbert MD [address] [place] [address] Gear Repairer Gastroenterology 11/22/17 Dmitry Sanderson MD [address] [place] [address] Referring Physician Colon and Rectal Surgery 12/03/1805/06 Abbi Ventura MD [address] [place] [address] [address] [place] [address] Medical Oncologist/Marine Engineer Medical Oncology 12/03/18 Montse Thompson MD [address] [place] [address] [address] [place] [address] Consulting Physician Gynecologic Oncology 12/03/18 Lela Hardy MD PhD [address] [place] [address] [address] [place] [address] Radiation Oncologist Radiation Oncology 12/23/18 Kianna Bunch MD PhD [address] [place] [address] Surgeon Surgical Oncology 12/23/18 09/17/21 documented as of this encounter
--- OUTSIDE RECORDS SUMMARY | 2024-04-24 14:49 | XMS_ITS | Encounter Summary ---
Author Organization [facility] Address [address] [place] [address] Phone Care Team Providers Care Fashion Consultant Name Role Phone Ravi Smith MD Primary Care Provider [phone] Aft, Kianna Machado MD PhD Unavailable [phone] Santiago Gilbert MD Unavailable [phone] Dmitry Sanderson MD Unavailable [phone] Abbi Ventura MD Unavailable Montse Thompson MD Unavailable [phone] Lela Hardy MD PhD Unavailable [phone] Aft, Kianna Machado MD PhD Unavailable [phone] Encounter Details Date Type Department Care Team (Late st Contact Info) Description 03/24/2021 Telephone [facility] Oncology [address] [place] [address] Uriel Corral Social History Tobacco Use Types [...] on file Legal Sex Female 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 Uriel Corral RN SCREEN FRAME ASSEMBLER SCREEN FRAME ASSEMBLER documented in this encounter Plan of Treatment Not on file documented as of this encounter Visit Diagnoses Not on filedocumented in this encounter Care Teams Fashion Consultant Relationship Specialty Start Date End Date Ravi Smith MD PCP - General 11/04/17 09/27/21 Aft, Kianna Machado MD PhD [address] [place] [address] Surgeon Surgical Oncology 11/22/17 Santiago Gilbert MD [address] [place] [address] Molecular Technologist Gastroenterology 11/22/17 Dmitry Sanderson MD [address] [place] [address] Referring Physician Colon and Rectal Surgery 12/03/1805/06 Abbi Ventura MD [address] [place] [address] [address] [place] [address] Medical Oncologist/Internship Coordinator Medical Oncology 12/03/18 Montse Thompson MD [address] [facility] [address] [place] [address] Consulting Physician Gynecologic Oncology 12/03/18 Lela Hardy MD PhD [address] [place] [address] [address] [place] [address] Radiation Oncologist Radiation Oncology 12/23/18 Aft, Kianna Machado MD PhD [address] [place] [address] [address] [place] [address] Surgeon Surgical Oncology 12/23/18 09/17/21 documented as of this encounter
--- OUTSIDE RECORDS SUMMARY | 2024-04-24 14:49 | XMS_ITS | Encounter Summary ---
Author Organization [facility] Healthcare Address [address] [place] [address] Care Team Providers Care Weather Teacher Name Role Phone Ravi Smith MD Primary Care Provider [phone] Aft, Kianna Machado MD PhD Unavailable [phone] Santiago Gilbert MD Unavailable [phone] Dmitry Sanderson MD Unavailable [phone] Abbi Ventura MD Unavailable Montse Thompson MD Unavailable [phone] Lela Hardy MD PhD Unavailable [phone] Aft, Kianna Machado MD PhD Unavailable [phone] Encounter Details Date Type Department Care Team (Late st Contact Info) Description 10/14/2020 12:40 PM CDT Lab [address] [address] Paresthesia Social History Tobacco Use Types Packs/Day [...] on file 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0 g/dL [facility] Beta-1 globulin 0.4 0.3 - 0.6 g/dL [facility] Beta-2 globulin 0.4 0.2 - 0.6 g/dL [facility] Gamma globulin 0.6 0.5 - 1.7 g/dL [facility] SPEP interp Please see comment [facility] Comment:No apparent monoclon al peak Blood specimen (specimen) 10/14/2020 10:22 AM CDT 10/14/2020 12:37 PM CDT us Lizbeth May MD LAB BLOOD ORDERABLES Final R esult [facility] Department [place] [address] * Anti-phospholipid screen (10/14/2020 10:22 AM CDT) Cardiolipin, IgG <1.6 <=19.9 GPL U/mL [facility] Comment: Interpretive Data Negative: <20 GPL [...] MARY. These results were obtained with the Noxilizer 2200 System. Cardiolipin IgG values obtained with different manufacturers' assay methods may not be used interchangeably. Current interpretive data was last revised on 2016. Cardiolipin, IgM 1.1 <=19.9 MPL U/mL [facility] Comment: Interpretive Data Negative: <20 MPL [...] antibodies. ??These results were obtained with the Noxilizer 2200 System. Cardiolipin IgM values obtained with different manufacturers' assay methods may not be used interchangeably. Current interpretive data was last revised on 2016. Beta-2 glycoprotein I, IgG <1.4 <=19.9 units/mL [facility] Comment: Interpretive Data Negative: <20 U/mL Positive: > or = 20 U/mL ? Beta-2 glycoprotein 1 (Beta-2 GP1) antibodies are a more specific marker of thrombotic risk. It is expected that some samples will be ACL positive and Beta- 2 [id number]. In order to improve specificity, the International Congress on Antiphospholipid Antibodies recommends Beta-2 GP1 antibodies of IgG or IgM isotype ??(> the 99th percentile), obtained twice, at least 12 weeks apart, to support a diagnosis of antiphospholipid syndrome. The cutoff for this assay was developed from data based on the 99th percentile. These results were obtained with the SinglePlatformlex 2200 System. Beta 2GP1 IgG values obtained with different manufacturers' assay methods may not be used interchangeably. Current interpretive data was last revised on 2016. Beta-2 glycoprotein I, IgM 1.0 <=19.9 units/mL [facility] Comment: Interpretive Data Negative: <20 U/mL Positive: [...] factor. ??These results were obtained with the Noxilizer 2200 System. Beta-2 GP1 IgM values obtained with different manufacturers' assay methods may not be used interchangeably. Current interpretive data was last revised on 2016. Blood specimen (specimen) 10/14/2020 10:22 AM CDT 10/14/2020 12:37 PM CDT Lizbeth May MD LAB BLOOD ORDERABLES Final R esult Performing Organization Address [facility] de Phone Number [facility] Department [place] [address] * ZENA qualitative with reflex to ZENA Quantitative (10/14/2020 10:22 AM CDT) ZENA Negative [facility] Comment: Interpretive Data Normal range for ZENA [...] ORDERABLES Final R esult Performing Organization Address [facility] Co de Phone Number [facility] Department [place] [address] documented in this encounter Visit Diagnoses Diagnosis Paresthesia Disturbance of skin sensation documented in this encounter Care Teams Weather Teacher Relationship Specialty Start Date End Date Ravi Smith MD PCP - General 11/04/17 09/27/21 AfKianna simpson MD PhD [address] [place] [address] Surgeon Surgical Oncology 11/22/17 Santiago Gilbert MD [address] [place] [address] Reject Opener Gastroenterology 11/22/17 Dmitry Sanderson MD [address] [place] [address] Referring Physician Colon and Rectal Surgery 12/03/1805/06 Abbi Ventura MD [address] [place] [address] [address] [place] [address] Medical Oncologist/Indigo Vat Tender Cloth Medical Oncology 12/03/18 Montse Thompson MD [address] [facility] [address] [place] [address] Consulting Physician Gynecologic Oncology 12/03/18 Lela Hardy MD PhD [address] [place] [address] Radiation Oncologist Radiation Oncology 12/23/18 Kianna Bunch MD PhD [address] [facility] [address] [place] [address] Surgeon Surgical Oncology 12/23/18 09/17/21 documented as of this encounter
--- OUTSIDE RECORDS SUMMARY | 2024-04-24 14:49 | XMS_ITS | Encounter Summary ---
Author Organization [facility] Address [address] [place] [address] Phone Care Team Providers Care Machine Compositor Name Role Phone Ravi Smith MD Primary Care Provider [phone] Aft, Kianna Machado MD PhD Unavailable [phone] Santiago Gilbert MD Unavailable [phone] Dmitry Sanderson MD Unavailable [phone] Abbi Ventura MD Unavailable Montse Thompson MD Unavailable [phone] Lela Hardy MD PhD Unavailable Aft, Kainna Machado MD PhD Unavailable [phone] Reason for Referral * Consultation (Routine) - Closed Specialty Diagnoses / Procedures Referred By Contac t Referred To Contact Diabetes and Nutrition Services Diagnoses Type 2 diabetes mellitus with other kidney complication, unspecified whether long chain quiller tender insulin use (HCC) Sylvia Ybarra MD [address] [place] [address] Phone: tel: fax: [facility] Endocrinology Metabolism and Lipid [address] [facility] 13th [place] [address] [place] [address] Phone: tel: fax: Referral ID Status Reason Start Date Expiration Date V isits Requested Visits Authorized [id number] Closed Specialty Services Required 12/09/2020 01/08/2022 10 10 Question Answer [id number] No Service requested Diabetes Self-Management Education/Therapy (DSMT) + Medical Nutrition Therapy (MNT) [id number] Initial / Annual Follow-up MNT Please select the performing region: [facility] (All Locations) [167] Please select the performing department: [facility] 13B [[id number]] # of visits: 10 Reason for Visit * Reason Comments Diabetic Education Diabetes Type 2 * Consultation (Routine) - Closed Specialty Diagnoses / Procedures Referred By Vijaya t Referred To Contact Diabetes and Nutrition Services Diagnoses Type 2 diabetes mellitus with other kidney complication, unspecified whether long chain quiller tender insulin use (HCC) Sylvia Ybarra MD [address] [facility] [address] [place] [address] Phone: tel: fax: [facility] Endocrinology Metabolism and Lipid [address] [facility] Medicine 13th [place] [address] [place] [address] Phone: tel: fax: Referral ID Status Reason Start Date Expiration Date V isits Requested Visits Authorized [id number] Closed Specialty Services Required 12/09/2020 01/08/2022 10 10 Encounter Details Date Type Department Care Team (Latest Contact Info) Description 12/09/2020 2:30 PM CDT Clinical Support [facility] Endocrinology Metabolism and Lipid [address] [facility] Medicine 13th [place] [address] [place] [address] Ya Pollard RN Type 2 diabetes mellitus with other kidney complication, unspecified whether long chain quiller tender insulin use (HCC) (Primary Dx) Social History [...] on file 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 She was referred [...] mellitus with other kidney complication, unspecified whether mcfp insulin use (CMS/HCC) Expected: 12/09/2020 (Approximate), Expires: 05/05/2021 documented as of this encounter Visit Diagnoses Diagnosis Type 2 diabetes mellitus with other kidney complication, unspecified whether long chain quiller tender insulin use (HCC)- Primary documented in this encounter Care Teams Machine Compositor Relationship Specialty Start Date End Date Ravi Smith MD PCP - General 11/04/17 09/27/21 Aft, Kianna Machado MD PhD [address] [place] [address] Surgeon Surgical Oncology 11/22/17 Santiago Gilbert MD [address] [place] [address] Electric Locomotive Firer/Fireman Gastroenterology 11/22/17 Dmitry Sanderson MD [address] [place] [address] Referring Physician Colon and Rectal Surgery 12/03/1805/06 Abbi Ventura MD [address] [place] [address] Medical Oncologist/Supervisor Mapping Medical Oncology 12/03/18 Montse Thompson MD [facility] [place] [address] Consulting Physician Gynecologic Oncology 12/03/18 Lela Hardy MD PhD [address] [place] [address] Radiation Oncologist Radiation Oncology 12/23/18 Aft, Kianna Macahdo MD PhD [address] [facility] [address] [place], [place] [address] Surgeon Surgical Oncology 12/23/18 09/17/21 documented as of this encounter
--- OUTSIDE RECORDS SUMMARY | 2024-04-24 14:49 | XMS_ITS | Encounter Summary ---
Author Organization [facility] Healthcare Address [address] [place] [address] Care Team Providers Care Programmer Analyst Name Role Phone Ravi Smith MD Primary Care Provider [phone] Aft, Kianna Machado MD PhD Unavailable [phone] Santiago Gilbert MD Unavailable [phone] Dmitry Sanderson MD Unavailable [phone] Abbi Ventura MD Unavailable Montse Thompson MD Unavailable [phone] Lela Hardy MD PhD Unavailable [phone] Aft, Kianna Machado MD PhD Unavailable [phone] Encounter Details Date Type Department Care Team (Late st Contact Info) Description 10/04/2020 Telephone [facility] Breast Imaging [facility] ([facility]) [address] [place] [address] Daisha Menjivar, RT Social History Tobacco Use [...] on file 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 documented in this encounter Plan of Treatment Not on file documented as of this encounter Visit Diagnoses Not on filedocumented in this encounter Care Teams Programmer Analyst Relationship Specialty Start Date End Date Ravi Smith MD PCP - General 11/04/17 09/27/21 Aft, Kianna Machado MD PhD [address] [place] [address] Surgeon Surgical Oncology 11/22/17 Santiago Gilbert MD [address] [place] [address] Fiber Optics Supervisor Gastroenterology 11/22/17 Dmitry Sanderson MD [address] [place] [address] Referring Physician Colon and Rectal Surgery 12/03/1805/06 Abbi Ventura MD [address] [place] [address] Medical Oncologist/Spray I Painter Medical Oncology 12/03/18 Montse Thompson MD [address] [place] [address] Consulting Physician Gynecologic Oncology 12/03/18 Lela Hardy MD PhD [address] [facility] [address] [place] [address] Radiation Oncologist Radiation Oncology 12/23/18 Aft, Kianna Machado MD PhD [address] [facility] [address] [place], [place] [address] Surgeon Surgical Oncology 12/23/18 09/17/21 documented as of this encounter
--- OUTSIDE RECORDS SUMMARY | 2024-04-24 14:49 | XMS_ITS | Encounter Summary ---
Author Organization [facility] Address [address] [place] [address] Phone Care Team Providers Care Signal Timer Name Role Phone Ravi Smith MD Primary Care Provider [phone] Aft, Kianna Machado MD PhD Unavailable [phone] Santiago Gilbert MD Unavailable [phone] Dmitry Sanderson MD Unavailable [phone] Abbi Ventura MD Unavailable Montse Thompson MD Unavailable [phone] Lela Hardy MD PhD Unavailable [phone] Aft, Kianna Machado MD PhD Unavailable [phone] Encounter Details Date Type Department Care Team (Late st Contact Info) Description 03/22/2021 Orders Only [facility] Pulmonary [address] [facility] 8th [place] [address] [place] [address] Cristobal Dong MD [address] [place] [address] Social History Tobacco Use Types [...] on file 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 Gender Identity Not on file Sexual Orientation [...] on filedocumented in this encounter Care Teams Signal Timer Relationship Specialty Start Date End Date Ravi Smith MD PCP - General 11/04/17 09/27/21 Aft, Kianna Machado MD PhD [address] [place] [address] Surgeon Surgical Oncology 11/22/17 Santiago Gilbert MD [address] [place] [address] Physician Surgeon Gastroenterology 11/22/17 Dmitry Sanderson MD [address] [place] [address] Referring Physician Colon and Rectal Surgery 12/03/1805/06 Abbi Ventura MD [address] [place] [address] [address] [place] [address] Medical Oncologist/Documentation Coordinator Medical Oncology 12/03/18 Montse Thompson MD [address] [facility] [address] [place] [address] Consulting Physician Gynecologic Oncology 12/03/18 Lela Hardy MD PhD [address] [facility] [address] [place] [address] Radiation Oncologist Radiation Oncology 12/23/18 Aft, Kianna Machado MD PhD [address] [place] [address] [address] [place] [address] Surgeon Surgical Oncology 12/23/18 09/17/21 documented as of this encounter
--- OUTSIDE RECORDS SUMMARY | 2024-04-24 14:49 | XMS_ITS | Encounter Summary ---
Author Organization [facility] Healthcare Address [address] [place] [address] Care Team Providers Care Starch Cooker Name Role Phone Ravi Smith MD Primary Care Provider [phone] Aft, Kianna Machado MD PhD Unavailable [phone] Santiago Gilbert MD Unavailable [phone] Dmitry Sanderson MD Unavailable [phone] Abbi Ventura MD Unavailable Montse Thompson MD Unavailable [phone] Lela Hardy MD PhD Unavailable [phone] Aft, Kianna Machado MD PhD Unavailable [phone] Reason for Referral * MRI/CAT/PET Scan (Routine) - Closed Specialty Diagnoses / Procedures [facility] Referred To Contact Radiology Diagnoses Malignant neoplasm of upper-inner quadrant of left breast in female, 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) Procedures CT Chest Abdomen Pelvis W Contrast Abbi Ventura MD [address] [place] [address] Phone: tel: fax: [facility] Referral ID Status Reason Start Date Expiration Date Visits Re quested Visits Authorized [id number] Closed 09/29/2020 10/29/2021 1 1 Reason for Visit * MRI/CAT/PET Scan (Routine) - Closed Specialty Diagnoses / Procedures Referred By Contac t Referred To Contact Radiology Diagnoses Malignant neoplasm of upper-inner quadrant of left breast in female, 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 [address] [place] [address] Phone: tel: fax: [facility] Referral ID Status Reason Start Date Expiration Date Visits Re quested Visits Authorized [id number] Closed 09/29/2020 10/29/2021 1 1 Encounter Details Date Type Department Care Team (Latest Contact Info) Description 10/06/2020 11:18 AM CDT - 10/06/2020 3:21 PM CDT Hospital Encounter [facility] Radiology [address] [facility] [place] [address] Abbi Ventura MD [address] 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 Gender Identity Not on file Sexual [...] 10/06/2020 documented in this encounter Care Teams Starch Cooker Relationship Specialty Start Date End Date Ravi Smith MD PCP - General 11/04/17 09/27/21 Aft, Kianna Machado MD PhD [address] [place] [address] Surgeon Surgical Oncology 11/22/17 Santiago Gilbert MD [address] [place] [address] Welcome Center Agent Gastroenterology 11/22/17 Dmitry Sanderson MD [address] [place] [address] Referring Physician Colon and Rectal Surgery 12/03/1805/06 Abbi Ventura MD [address] [place] [address] [address] [place] [address] Medical Oncologist/Scientific Associate Medical Oncology 12/03/18 Montse Thompson MD [address] [facility] [address] [place] [address] Consulting Physician Gynecologic Oncology 12/03/18 Lela Hardy MD PhD [address] [facility] [address] [place] [address] Radiation Oncologist Radiation Oncology 12/23/18 Aft, Kianna Machado MD PhD [address] [place] [address] Surgeon Surgical Oncology 12/23/18 09/17/21 documented as of this encounter
--- OUTSIDE RECORDS SUMMARY | 2024-04-24 14:49 | XMS_ITS | Encounter Summary ---
Author Organization [facility] Address [address] [place] [address] Phone Care Team Providers Care Facility Service Manager Name Role Phone Ravi Smith MD Primary Care Provider [phone] Aft, Kianna Machado MD PhD Unavailable [phone] Santiago Gilbert MD Unavailable [phone] Dmitry Sanderson MD Unavailable [phone] Abbi Ventura MD Unavailable Montse Thompson MD Unavailable Lela Hardy MD PhD Unavailable Aft, Kianna Machado MD PhD Unavailable [phone] Encounter Details Date Type Department Care Team (Late st Contact Info) Description 10/05/2020 Orders Only [facility] Oncology [address] [place] [address] Abbi Ventura MD [address] [facility] [address] [place], [place] [id number] Malignant neoplasm of upper-inner quadrant of left [...] on file 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 Gender Identity Not on file Sexual Orientation Not on file documented as of this encounter Plan of Treatment Not on file documented as of this encounter Visit Diagnoses Diagnosis Malignant neoplasm of upper-inner quadrant of left breast in female, estrogen receptor negative (HCC)- Primary documented in this encounter Care Teams Facility Service Manager Relationship Specialty Start Date End Date Ravi Smith MD PCP - General 11/04/17 09/27/21 Aft, Kianna Machado MD PhD [address] [place] [address] Surgeon Surgical Oncology 11/22/17 Santiago Gilbert MD [address] [place] [address] Local Company Hazmat Driver Gastroenterology 11/22/17 Dmitry Sanderson MD [address] [place] [address] Referring Physician Colon and Rectal Surgery 12/03/1805/06 Abbi Ventura MD [address] [place] [address] Medical Oncologist/Specimen Processor Medical Oncology 12/03/18 Montse Thompson MD [address] [place] [address] Consulting Physician Gynecologic Oncology 12/03/18 Lela Hardy MD PhD [address] [place] [address] Radiation Oncologist Radiation Oncology 12/23/18 Aft, Kianna Machado MD PhD [address] [facility] [address] [place] [address] Surgeon Surgical Oncology 12/23/18 09/17/21 documented as of this encounter
--- OUTSIDE RECORDS SUMMARY | 2024-04-24 14:49 | XMS_ITS | Encounter Summary ---
Author Organization [facility] Address [address] [place] [address] Phone Care Team Providers Care Spray Unit Feeder Name Role Phone Ravi Smith MD Primary Care Provider [phone] Aft, Kianna Machado MD PhD Unavailable [phone] Santiago Gilbert MD Unavailable [phone] Dmitry Sanderson MD Unavailable [phone] Abbi Ventura MD Unavailable Montse Thompson MD Unavailable [phone] Lela Hardy MD PhD Unavailable [phone] Aft, Kianna Machado MD PhD Unavailable [phone] Encounter Details Date Type Department Care Team (Late st Contact Info) Description 10/07/2020 Telephone [facility] [address] [place] [id number] Uriel Corral Social History Tobacco Use Types [...] file 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 Gender Identity Not on file Sexual Orientation [...] on filedocumented in this encounter Care Teams Spray Unit Feeder Relationship Specialty Start Date End Date Ravi Smith MD PCP - General 11/04/17 09/27/21 Aft, Kianna Machado MD PhD [address] [place] [address] Surgeon Surgical Oncology 11/22/17 Santiago Gilbert MD [address] [place] [address] Interventional Nurse Gastroenterology 11/22/17 Dmitry Sanderson MD [address] [place] [address] Referring Physician Colon and Rectal Surgery 12/03/1805/06 Abbi Ventura MD [address] [place] [address] [address] [place] [address] Medical Oncologist/Sports Medicine [facility] 12/03/18 Montse Thompson MD [address] [facility] [address] [place] [address] Consulting Physician Gynecologic Oncology 12/03/18 Lela Hardy MD PhD [address] [place] [address] Radiation Oncologist Radiation Oncology 12/23/18 Aft, Kianna Machado MD PhD [address] [place] [address] Surgeon Surgical Oncology 12/23/18 09/17/21 documented as of this encounter
--- OUTSIDE RECORDS SUMMARY | 2024-04-24 14:49 | XMS_ITS | Encounter Summary ---
Author Organization [facility] Address [address] [place] [address] Phone Care Team Providers Care International Sales Representative Name Role Phone Ravi Smith MD Primary Care Provider [phone] Aft, Kianna Machado MD PhD Unavailable [phone] Santiago Gilbert MD Unavailable [phone] Dmitry Sanderson MD Unavailable [phone] Abbi Ventura MD Unavailable Montse Thompson MD Unavailable Lela Hardy MD PhD Unavailable [phone] Aft, Kianna Machado MD PhD Unavailable [phone] Reason for Visit * Reason Comments Sleep Apnea Encounter Details Date Type Department Care Team (Late st Contact Info) Description 11/14/2020 1:30 PM CDT Office Visit [facility] Pulmonary [address] [facility] 6th Floor [address] [place] [address] Mary Garcia MD [address] [place] [address] VIOLETTE (obstructive sleep apnea) (Primary [...] file 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 Mary Garcia MD field applications specialist Diplomate in Sleep Medicine, [employer] of Internal [employer] documented in this encounter Plan of Treatment Not on file documented as of this encounter Visit Diagnoses Diagnosis VIOLETTE (obstructive sleep apnea)- Primary Obstructive sleep apnea (adult) (pediatric) documented in this encounter Care Teams International Sales Representative Relationship Specialty Start Date End Date Ravi Smith MD PCP - General 11/04/17 09/27/21 Aft, Kianna Machado MD PhD [address] [place] [address] Surgeon Surgical Oncology 11/22/17 Santiago Gilbert MD [address] [place] [address] Director Validation Gastroenterology 11/22/17 Dmitry Sanderson MD [address] [place] [address] Referring Physician Colon and Rectal Surgery 12/03/1805/06 Abbi Ventura MD [address] [place] [address] [address] [place] [address] Medical Oncologist/Roofing Tile Sorter Medical Oncology 12/03/18 Montse Thompson MD [address] [place] [address] [address] [place] [address] Consulting Physician Gynecologic Oncology 12/03/18 Lela Hardy MD PhD [address] [place] [address] [address] [place], [place] [id number] Radiation Oncologist Radiation Oncology 12/23/18 Aft, Kianna Machado MD PhD [address] [place] [address] [address] [place] [address] Surgeon Surgical Oncology 12/23/18 09/17/21 documented as of this encounter
--- OUTSIDE RECORDS SUMMARY | 2024-04-24 14:49 | XMS_ITS | Encounter Summary ---
Author Organization [facility] Address [address] [place] [address] Phone Care Team Providers Care Silicator Name Role Phone Ravi Smith MD Primary Care Provider [phone] Aft, Kianna Mcahado MD PhD Unavailable [phone] Santiago Gilbert MD Unavailable [phone] Dmitry Sanderson MD Unavailable [phone] Abbi Ventura MD Unavailable Montse Thompson MD Unavailable [phone] Lela Hardy MD PhD Unavailable Aft, Kianna Machado MD PhD Unavailable Encounter Details Date Type Department Care Team (Late st Contact Info) Description 03/23/2021 2:30 PM PRODUCTION CONTROL SPECIALIST Lab [facility] Oncology [address] [place] [address] Malignant neoplasm of upper-inner quadrant of left [...] on file Legal Sex Female 1:06 AM PRODUCTION CONTROL SPECIALIST Gender Identity Not on file Sexual Orientation Not on file documented as of this encounter Plan of Treatment Not on file documented as of this encounter Procedures Procedure Name Priority Date/Time Associated Diagnosis Comments URINALYSIS AND REFLEX TO MICROSCOPIC AND CULTURE Routine 03/23/2021 4:52 PM PRODUCTION CONTROL SPECIALIST Malignant neoplasm of upper-inner quadrant of left breast in female, estrogen receptor negative (CMS/HCC) (HCC) EGFR STAT 03/23/2021 4:43 PM PRODUCTION CONTROL SPECIALIST Malignant neoplasm of upper-inner quadrant of left breast in female, estrogen receptor negative (CMS/HCC) (HCC) BASIC METABOLIC PANEL STAT 03/23/2021 4:43 PM PRODUCTION CONTROL SPECIALIST Malignant neoplasm of upper-inner quadrant of left breast in female, estrogen receptor negative (CMS/HCC) (HCC) EGFR Routine 03/23/2021 2:02 PM PRODUCTION CONTROL SPECIALIST Malignant neoplasm of upper-inner quadrant of left breast in female, estrogen receptor negative (CMS/HCC) (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) DIFFERENTIAL AUTO Routine 03/23/2021 2:0 2 PM PRODUCTION CONTROL SPECIALIST Malignant neoplasm of upper-inner quadrant of left breast in female, estrogen receptor negative (CMS/HCC) (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) CBC WITH AUTO DIFFERENTIAL Routine 03/23/2021 2:02 PM PRODUCTION CONTROL SPECIALIST Malignant neoplasm of upper-inner quadrant of left breast in female, estrogen receptor negative (CMS/HCC) (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) CEA Routine 03/23/2021 2:02 PM PRODUCTION CONTROL SPECIALIST Malignant neoplasm of upper-inner quadrant of left breast in female, estrogen receptor negative (CMS/HCC) (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) COMPREHENSIVE METABOLIC PANEL Routine 03/23/2021 2:02 PM PRODUCTION CONTROL SPECIALIST Malignant neoplasm of upper-inner quadrant of left breast in female, estrogen receptor negative (CMS/HCC) (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) documented in this encounter Results * Urinalysis reflex to microscopic and culture Urine (03/23/2021 4:52 PM PRODUCTION CONTROL SPECIALIST) Pathologist [facility] Color, ur Straw Yellow [facility] Clarity, ur Clear Clear [facility] Specific gravity, ur 1.021 1.003 - 1.030 [facility] pH, urine 6 [facility] Protein, ur ql Negative Negative [facility] Glucose, ur ql Negative Negative [facility] Ketones, ur Negative Negative [facility] Bilirubin, ur Negative Negative [facility] Blood, ur Negative Negative [facility] Urobilinogen, ur <2.0 <2.0 mg/dL [facility] Nitrite, ur Negative Negative [facility] Leukocyte esterase, ur Negative Negative [facility] UA reflex comment Reflex conditions for microscopic UA and culture not met. [facility] Urine 03/23/2021 4:52 PM PRODUCTION CONTROL SPECIALIST 03/23/2021 7:07 PM PRODUCTION CONTROL SPECIALIST Narrative [facility] - 03/23/2021 7:25 PM PRODUCTION CONTROL SPECIALIST ?? Urine pH is affected by diet, medications, systemic acid-base disturbances, and renal tubular function. ??pH may affect urinary stone formation. ??For example, urine pH below 6.0 may help reduce the tendency for calcium phosphate stones and pH greater than 6.0 may reduce the tendency for uric acid stone formation. Source: [employer]. Last revised 05-16-2017 us Abbi Ventura MD LAB MICROBIOLOGY - GENERAL ORDER YFN Final Result [facility] [place] [address] * (ABNORMAL) eGFR (03/23/2021 4:43 PM PRODUCTION CONTROL SPECIALIST) Pathologist [facility] eGFR 27(L) 90 - 130 mL/min/1.7 3 m2 [facility] [...] last reviewed 2020 Blood 03/23/2021 4:43 PM PRODUCTION CONTROL SPECIALIST 03/23/2021 4:43 PM PRODUCTION CONTROL SPECIALIST us Abbi Ventura MD LAB BLOOD ORDERABLES Final Resul t [facility] Department [place] [address] * (ABNORMAL) Basic metabolic panel (03/23/2021 4:43 PM PRODUCTION CONTROL SPECIALIST) Sodium 142 135 - 145 mmol/L [facility] Potassium, pl 4.3 3.3 - 4.9 mmol/L [facility] Chloride 109 97 - 110 mmol/L [facility] CO2 27 22 - 32 mmol/L [facility] Anion gap 6 2 - 15 mmol/L [facility] BUN 32(H) 8 - 25 mg/dL [facility] Creatinine 1.91(H) 0.60 - 1.10 mg/dL [facility] Glucose 152 70 - 199 mg/dL [facility] [...] 2017. Calcium 8.8 8.5 - 10.3 mg/dL [facility] Blood 03/23/2021 4:43 PM PRODUCTION CONTROL SPECIALIST 03/23/2021 4:43 PM PRODUCTION CONTROL SPECIALIST Narrative [facility] - 03/23/2021 5:05 PM PRODUCTION CONTROL SPECIALIST Recheck BMP after fluids us Abbi Ventura MD LAB BLOOD ORDERABLES Final Resul t [facility] Department [place] [address] * (ABNORMAL) eGFR (03/23/2021 2:02 PM PRODUCTION CONTROL SPECIALIST) eGFR 26(L) 90 - 130 mL/min/1.7 3 m2 [facility] [...] last reviewed 2020 Blood 03/23/2021 2:02 PM PRODUCTION CONTROL SPECIALIST 03/23/2021 2:05 PM PRODUCTION CONTROL SPECIALIST us Abbi Ventura MD LAB BLOOD ORDERABLES Final Resul t [facility] Department [place] [address] * (ABNORMAL) Differential, auto (03/23/2021 2:02 PM PRODUCTION CONTROL SPECIALIST) Neutrophil abs 6.7(H) 1.7 - 6.5 K/cumm [facility] Imm gran abs 0.0 0.0 - 0.1 K/cumm [facility] Lymphocyte abs 1.9 0.8 - 3.3 K/cumm [facility] Monocyte abs 0.7 0.2 - 0.8 K/cumm [facility] Eosinophil abs 0.4 0.0 - 0.5 K/cumm [facility] Basophil abs 0.1 0.0 - 0.1 K/cumm [facility] Neutrophil pct 68.4 % [facility] Comment: Interpretive Data Percent cell count reference ranges are not reported, since discordance with absolute values may lead to misinterpretation of CBC data. Current Interpretive Data was last revised on 2017. Imm gran pct 0.4 % [facility] Comment: Interpretive Data Percent cell count reference ranges are not reported, since discordance with absolute values may lead to misinterpretation of CBC data. Current Interpretive Data was last revised on 2017. Lymphocyte pct 19.4 % [facility] Comment: Interpretive Data Percent cell count reference ranges are not reported, since discordance with absolute values may lead to misinterpretation of CBC data. Current Interpretive Data was last revised on 2017. Monocyte pct 7.1 % [facility] Comment: Interpretive Data Percent cell count reference ranges are not reported, since discordance with absolute values may lead to misinterpretation of CBC data. Current Interpretive Data was last revised on 2017. Eosinophil pct 3.8 % [facility] Comment: Interpretive Data Percent cell count [...] revised on 2017. Blood 03/23/2021 2:02 PM PRODUCTION CONTROL SPECIALIST 03/23/2021 2:05 PM PRODUCTION CONTROL SPECIALIST Abbi Ventura MD LAB BLOOD ORDERABLES Final Resul t Performing Organization Address City/[facility]/ZIP Co de Phone Number [facility] [place] [address] * CEA (03/23/2021 2:02 PM PRODUCTION CONTROL SPECIALIST) CEA 1.5 <=5.0 ng/mL [facility] Comment: Interpretive Data: Reference Range: Non-Smokers: 0.0 ? 5.0 ng/mL Smokers: 0.0 ? 6.5 ng/mL Current interpretive data was last revised 2020. Blood 03/23/2021 2:02 PM PRODUCTION CONTROL SPECIALIST 03/23/2021 7:06 PM PRODUCTION CONTROL SPECIALIST Abbi Ventura MD LAB BLOOD ORDERABLES Final Resul t Performing Organization Address City/[facility]/ZIP Co de Phone Number [facility] Department [place] [address] * (ABNORMAL) CBC with auto differential (03/23/2021 2:02 PM PRODUCTION CONTROL SPECIALIST) [facility] WBC 9.9 3.8 - 9.9 K/cumm [facility] Hgb 11.7(L) 11.9 - 15.5 g/dL [facility] Hct 35.8 35.6 - 45.5 % [facility] Plt 178 150 - 400 K/cumm [facility] MPV 10.2 9.1 - 12.3 fL [facility] RBC 3.66(L) 3.90 - 5.20 M/cumm [facility] MCV 97.8(H) 81.3 - 96.4 fL [facility] MCH 32.0 27.1 - 33.3 pg [facility] MCHC 32.7 32.3 - 35.7 g/dL [facility] RDW CV 13.2 11.1 - 14.9 % [facility] RDW SD 47.7 35.7 - 48.1 fL [facility] NRBC abs 0.00 0.00 - 0.01 K/cumm [facility] Blood 03/23/2021 2:02 PM PRODUCTION CONTROL SPECIALIST 03/23/2021 2:05 PM PRODUCTION CONTROL SPECIALIST us Abbi Ventura MD LAB BLOOD ORDERABLES Final Resul t [facility] Department [place] [address] * (ABNORMAL) Comprehensive metabolic panel (03/23/2021 2:02 PM PRODUCTION CONTROL SPECIALIST) [facility] Sodium 142 135 - 145 mmol/L [facility] Potassium, pl 4.6 3.3 - 4.9 mmol/L [facility] Chloride 106 97 - 110 mmol/L [facility] CO2 27 22 - 32 mmol/L [facility] Anion gap 9 2 - 15 mmol/L [facility] BUN 32(H) 8 - 25 mg/dL [facility] Creatinine 1.98(H) 0.60 - 1.10 mg/dL [facility] Glucose 209(H) 70 - 199 mg/dL [facility] [...] 2017. Calcium 9.6 8.5 - 10.3 mg/dL [facility] Bilirubin, total 0.4 0.1 - 1.2 mg/dL [facility] Protein, pl 7.0 6.5 - 8.5 g/dL [facility] Albumin 4.2 3.5 - 5.0 g/dL [facility] Alk phos 94 40 - 130 Units/L [facility] ALT 14 7 - 45 Units/L [facility] AST 18 10 - 45 Units/L [facility] Blood 03/23/2021 2:02 PM PRODUCTION CONTROL SPECIALIST 03/23/2021 2:05 PM PRODUCTION CONTROL SPECIALIST us Abbi Ventura MD LAB BLOOD ORDERABLES Final Resul t [facility] Department [place] [address] documented in this encounter Visit Diagnoses Diagnosis Malignant neoplasm of upper-inner quadrant of left breast in female, 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) Malignant neoplasm of descending colon documented in this encounter Orders Appointment Requests Count Last Ordered Date Fi rst Ordered Date ONCBCN LAB APPOINTMENT 1 03/23/2021 documented in this encounter Care Teams Silicator Relationship Specialty Start Date End Date Ravi Smith MD PCP - General 11/04/17 09/27/21 Aft, Kianna Machado MD PhD [address] [place] [address] Surgeon Surgical Oncology 11/22/17 Santiago Gilbert MD [address] [place] [address] Automobile Tire Builder Gastroenterology 11/22/17 Dmitry Sanderson MD [address] [place] [address] Referring Physician Colon and Rectal Surgery 12/03/1805/06 Abbi Ventura MD [address] [place] [address] [address] [place] [address] Medical Oncologist/Silo Man Medical Oncology 12/03/18 Montse Thompson MD [address] [place] [address] [address] [place] [address] Consulting Physician Gynecologic Oncology 12/03/18 Lela Hardy MD PhD [address] [place] [address] [address] [place] [address] Radiation Oncologist Radiation Oncology 12/23/18 Aft, Kianna Machado MD PhD [address] [place] [address] [address] [place] [address] Surgeon Surgical Oncology 12/23/18 09/17/21 documented as of this encounter
--- OUTSIDE RECORDS SUMMARY | 2024-04-24 14:49 | XMS_ITS | Encounter Summary ---
Author Organization [facility] [employer] [facility] Address [address] [place] [address] Phone Care Team Providers Care Clinical Nurse Manager Name Role Phone Ravi Smith MD Primary Care Provider [phone] Aft, Kianna Machado MD PhD Unavailable [phone] Santiago Gilbert MD Unavailable [phone] Dmitry Sanderson MD Unavailable [phone] Abbi Ventura MD Unavailable Montse Thompson MD Unavailable [phone] Lela Hardy MD PhD Unavailable [phone] Aft, Kianna Machado MD PhD Unavailable [phone] Encounter Details Date Type Department Care Team (Late st Contact Info) Description 10/14/2020 10:10 AM CDT Lab [facility] Endocrinology Metabolism and Lipid [address] [facility] 5th [place] [address] [place] [address] Paresthesia; Type 2 diabetes mellitus with other kidney complication, unspecified whether equipment operator intermodal yard insulin use ([facility]) Social History Tobacco Use Types Packs/Day Years [...] on file Legal Sex Female 1:06 AM ACCOUNT EXECUTIVE AGRIBUSINESS Gender Identity Not on file Sexual Orientation Not on file documented as of this encounter Plan of Treatment Not on file documented as of this encounter Procedures Procedure Name Priority Date/Time Associated Diagnosis Comments ALBUMIN CREATININE RATIO, URINE Routine 10/14/2020 10:22 AM CDT Type 2 diabetes mellitus with other kidney complication, unspecified whether halfway insulin use ([facility]) HEMOGLOBIN A1C Routine 10/14/2020 10:22 AM CDT Paresthesia Type 2 diabetes mellitus with other kidney complication, unspecified whether halfway insulin use ([facility]) documented in this encounter Results * (ABNORMAL) [...] mellitus with other kidney complication, unspecified whether equipment operator intermodal yard insulin use (HCC) documented in this encounter Care Teams Clinical Nurse Manager Relationship Specialty Start Date End Date Ravi Smith MD PCP - General 11/04/17 09/27/21 Aft, Kianna Machado MD PhD [address] [place] [address] Surgeon Surgical Oncology 11/22/17 Santiago Gilbert MD [address] [place] [address] Gastroenterology 11/22/17 Dmitry Sanderson MD [address] [place] [address] Referring Physician Colon and Rectal Surgery 12/03/1805/06 Abbi Ventura MD [address] [facility] [address] [place] [address] Medical Oncologist/Information Technology Director Medical Oncology 12/03/18 Montse Thompson MD [address] [facility] [address] [place] [address] Consulting Physician Gynecologic Oncology 12/03/18 Lela Hardy MD PhD [address] [facility] [address] [place] [address] Radiation Oncologist Radiation Oncology 12/23/18 Aft, Kianna Machado MD PhD [address] [facility] [address] [place] [address] Surgeon Surgical Oncology 12/23/18 09/17/21 documented as of this encounter
--- OUTSIDE RECORDS SUMMARY | 2024-04-24 14:49 | XMS_ITS | Encounter Summary ---
Author Organization [facility] Address [address] [place] [address] Phone Care Team Providers Care Mortgage Loan Funder Name Role Phone Ravi Smith MD Primary Care Provider [phone] Aft, Kianna Machado MD PhD Unavailable [phone] Santiago Gilbert MD Unavailable Dmitry Sanderson MD Unavailable [phone] Abbi Ventura MD Unavailable Montse Thompson MD Unavailable [phone] Lela Hardy MD PhD Unavailable [phone] Aft, Kianna Machado MD PhD Unavailable [phone] Encounter Details Date Type Department Care Team (Late st Contact Info) Description 10/07/2020 Orders Only [facility] Oncology [address] [place] [address] Abbi Ventura MD [address] [place], [place] [id number] Social History Tobacco Use Types Packs/Day Years [...] on file Legal Sex Female 1:06 AM REGULATOR MECHANIC Gender Identity Not on file Sexual Orientation Not on file documented as of this encounter Plan of Treatment Not on file documented as of this encounter Visit Diagnoses Not on filedocumented in this encounter Care Teams Mortgage Loan Funder Relationship Specialty Start Date End Date Ravi Smith MD PCP - General 11/04/17 09/27/21 Aft, Kianna Machado MD PhD [address] [place] [address] Surgeon Surgical Oncology 11/22/17 Santiago Gilbert MD [address] [place] [address] [facility] Gastroenterology 11/22/17 Dmitry Sanderson MD [address] [place] [address] Referring Physician Colon and Rectal Surgery 12/03/1805/06 Abbi Ventura MD [address] [place] [address] [address] [place] [address] Medical Oncologist/Software Development Engineer Medical Oncology 12/03/18 Montse Thompson [facility] [address] [place] [address] Consulting Physician Gynecologic Oncology 12/03/18 Lela Hardy MD PhD [address] [place] [address] Radiation Oncologist Radiation Oncology 12/23/18 Aft, Kianna Machado MD PhD [address] [facility] [address] [place] [address] Surgeon Surgical Oncology 12/23/18 09/17/21 documented as of this encounter
--- OUTSIDE RECORDS SUMMARY | 2024-04-24 14:49 | XMS_ITS | Encounter Summary ---
Author Organization [facility] Address [address] [place] [address] Phone Care Team Providers Care Electronic Specialist Name Role Phone Ravi Smith MD Primary Care Provider [phone] Aft, Kianna Machado MD PhD Unavailable [phone] Santiago Gilbert MD Unavailable Dmitry Sanderson MD Unavailable [phone] Abbi Ventura MD Unavailable Montse Thompson MD Unavailable [phone] Lela Hardy MD PhD Unavailable [phone] Aft, Kianna Machado MD PhD Unavailable [phone] Encounter Details Date Type Department Care Team (Late st Contact Info) Description 03/24/2021 Orders Only [facility] Oncology [address] [place] [address] Abbi Ventura MD [address] [place], [place] [id number] Dehydration (Primary Dx); Malignant neoplasm of upper-inner [...] file Legal Sex Female 1:06 AM STEAM PRESS OPERATOR Gender Identity Not on file Sexual Orientation Not on file documented as of this encounter Plan of Treatment Not on file documented as of this encounter Results * (ABNORMAL) Basic metabolic panel (03/27/2021 1:13 PM STEAM PRESS OPERATOR) Sodium 138 135 - 145 mmol/L [facility] Potassium, pl 3.9 3.3 - 4.9 mmol/L [facility] Chloride 104 97 - 110 mmol/L [facility] CO2 27 22 - 32 mmol/L [facility] Anion gap 7 2 - 15 mmol/L [facility] BUN 26(H) 8 - 25 mg/dL [facility] Creatinine 1.70(H) 0.60 - 1.10 mg/dL [facility] Glucose 135 70 - 199 mg/dL [facility] Comment: Interpretive Data Fasting glucose >/= 126 [...] 2017. Calcium 9.5 8.5 - 10.3 mg/dL [facility] Blood 03/27/2021 1:13 PM STEAM PRESS OPERATOR 03/27/2021 1:16 PM STEAM PRESS OPERATOR Narrative [facility] - 03/27/2021 1:56 PM STEAM PRESS OPERATOR Please Draw Post IVFS on Saturday03/27/21. Thank you! us Abbi Ventura MD LAB BLOOD ORDERABLES Final Resul t [facility] [place] [address] documented in this encounter Visit Diagnoses Diagnosis [...] 03/27/2021 documented in this encounter Care Teams Electronic Specialist Relationship Specialty Start Date End Date Ravi Smith MD PCP - General 11/04/17 09/27/21 Aft, Kianna Machado MD PhD [address] [place] [address] Surgeon Surgical Oncology 11/22/17 Santiago Gilbert MD [address] [place] [address] Ice Guard Tester Gastroenterology 11/22/17 Dmitry Sanderson MD [address] [place] [address] Referring Physician Colon and Rectal Surgery 12/03/1805/06 Abbi Ventura MD [address] [place] [address] Medical Oncologist/Tech Writer Medical Oncology 12/03/18 Montse Thompson MD [address] [place], [place] [address] Consulting Physician Gynecologic Oncology 12/03/18 Lela Hardy MD PhD [address] [place] [address] Radiation Oncologist Radiation Oncology 12/23/18 Aft, Kianna Machado MD PhD [address] [place] [address] Surgeon Surgical Oncology 12/23/18 09/17/21 documented as of this encounter
--- OUTSIDE RECORDS SUMMARY | 2024-04-24 14:49 | XMS_ITS | Encounter Summary ---
Author Organization [facility] Address [address] [place] [address] Phone Care Team Providers Care Site Leasing Agent Name Role Phone Ravi Smith MD Primary Care Provider [phone] Aft, Kianna Machado MD PhD Unavailable [phone] Santiago Gilbert MD Unavailable [phone] Dmitry Sanderson MD Unavailable [phone] Abbi Ventura MD Unavailable Montse Thompson MD Unavailable [phone] Lela Hardy MD PhD Unavailable [phone] Aft, Kianna Machado MD PhD Unavailable [phone] Encounter Details Date Type Department Care Team (Late st Contact Info) Description 03/22/2021 Telephone [facility] Pulmonary [address] [facility] 8th [place] [address] [place] [address] Adelina Morton RN Social History Tobacco Use [...] file Legal Sex Female 1:06 AM DIRECTOR OF ARCHIVES Gender Identity Not on file Sexual Orientation Not on file documented as of this encounter Miscellaneous Notes * Telephone Encounter - Adelina Morton RN - 03/22/2021 3:30 PM DIRECTOR OF ARCHIVES Informed pt that the RVP was neg. and CXR was clear. Instructed her to use Advair 1 inh bid, and a script will be sent for prednisone. Verbalized understanding. Prescription for prednisone 20mg. qd x5d, sent to pt's. pharmacy as ordered. CTOR OF ARCHIVES documented in this encounter Plan of Treatment Not on file documented as of this encounter Visit Diagnoses Not on filedocumented in this encounter Care Teams Site Leasing Agent Relationship Specialty Start Date End Date Ravi Smith MD PCP - General 11/04/17 09/27/21 Aft, Kianna Machado MD PhD [address] [place] [address] Surgeon Surgical Oncology 11/22/17 Santiago Gilbert MD [address] [place] [address] Internet E Commerce Specialist Gastroenterology 11/22/17 Dmitry Sanderson MD [address] [place] [address] Referring Physician Colon and Rectal Surgery 12/03/1805/06 Abbi Ventura MD [address] [place] [address] [address] [place] [address] Medical Oncologist/Chairperson Anesthesiology Medical Oncology 12/03/18 Montse Thompson MD [address] [place] [address] Consulting Physician Gynecologic Oncology 12/03/18 Lela Hardy MD PhD [address] [place] [address] Radiation Oncologist Radiation Oncology 12/23/18 Aft, Kianna Machado MD PhD [address] [place] [address] Surgeon Surgical Oncology 12/23/18 09/17/21 documented as of this encounter
--- OUTSIDE RECORDS SUMMARY | 2024-04-24 14:49 | XMS_ITS | Encounter Summary ---
Author Organization [facility] Address [address] [place] [address] Phone Care Team Providers Care Fur Floor Worker Name Role Phone Ravi Smith MD Primary Care Provider [phone] Aft, Kianna Machado MD PhD Unavailable [phone] Santiago Gilbert MD Unavailable [phone] Dmitry Sanderson MD Unavailable [phone] Abbi Ventura MD Unavailable Montse Thompson MD Unavailable [phone] Lela Hardy MD PhD Unavailable [phone] Aft, Kianna Machado MD PhD Unavailable [phone] Reason for Visit * Consultation (Routine) - Closed Specialty Diagnoses / Procedures Referred By Contac t Referred To Contact Endocrinology Diagnoses Type 2 diabetes mellitus with other kidney complication, unspecified whether fpc insulin use (HCC) Lizbeth May MD [address] [facility] [address] [place] [address] Phone: tel: fax: [facility] (All Locations) Referral ID Status Reason Start Date Expiration Date V isits Requested Visits Authorized [id number] Closed Specialty Services Required 10/14/2020 11/13/2021 99 99 Encounter Details Date Type Department Care Team (Latest Contact Info) Description 12/09/2020 2:00 PM CDT Office Visit [facility] Endocrinology Metabolism and Lipid [address] 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 Gender Identity Not on file Sexual [...] Peaches Pears Plums Prunes (Grapefruit) Raspberries Strawberries Makanda Tomato juice Beans and legumes (made from dried beans, not canned): Black-eyed peas Butter beans Chick peas Lentils Green beans Fulton beans Kidney beans Tindall beans Cherry beans Snow peas Non-starchy vegetables: Asparagus, avocado, broccoli, cabbage, cauliflower, celery, cucumber, greens, lettuce, mushrooms, peppers, tomatoes, okra, onions, spinach, summer squash, eggplant, [place] sprouts, zucchini Grains: Barley Bulgur [place] Wild rice Nuts and oils : Almonds Pistachios Smith seeds Hazelnuts Pecans Walnuts Oils: soybean Nuts--1/4 cup Dairy, fish, meat, soy, and eggs: Milk, skim Low fat cheese Yogurt, low fat or nonfat, Light Lean red meat Fish Skinless chicken & turkey Shellfish Soy products Egg whites (up to 3 daily) Egg yolks (up to 3 per week) Breakfast Cereals: Bran Buds Bran Chex Just Right Mini-Wheats Special K Salvadorean muesli Fruits: Banana (under-ripe) Dates Figs Grapes Kiwi Benito Oranges Raisins Cantaloupe Fruit Juices: (avoid if blood sugar is high) Cranberry juice [place] juice Beans and legumes: [place]-type baked beans Canned cherry, kidney, or navy beans Green peas Vegetables: Beets Carrots Sweet potato Yam Hinton on the cob Breads: Tiffani (pocket) bread Oat bran bread Pumpernickel bread Waveland bread Wheat bread, high fiber Grains: Cornmeal Rice, brown Rice, white Couscous Pasta: Macaroni Pizza, cheese Ravioli, meat filled Spaghetti, white Nuts: Cashews Macadamia Snacks: Chocolate Ice cream, lowfat Muffin Popcorn All fast food restaurants Breakfast Cereals: Cheerios Hinton Chex Hinton Flakes Cream of Wheat Grape Nuts Grape Nut Flakes Grits Nutri-Grain Puffed Rice Puffed Wheat Rice Chex Rice Krispies Shredded Wheat Team Total Fruits: Pineapple Watermelon Banana (over-ripe) Beverages: Sodas, sweet tea, pineapple juice Vegetables: Potato, baked, boiled, fried, mashed Albanian fries Canned or frozen corn Parsnips Winter squash Breads: Most breads (white and whole grain) Bagels Bread sticks Bread stuffing Bishop roll Dinner rolls Grains: Rice, instant Tapioca, with milk Candy and most cookies Snacks: Donuts Hinton chips Jelly beans Pretzels Potato chips Pastries Restaurant and ethnic foods Most Albanian food (sugar in stir dickens or wok [...] 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 A recent evaluation with an pilates instructor was done. Impression was ?Ocular migraine Today [...] for weight loss ?? Micro-/macrovascular complications - CVA/NE/CAD/PAD: None - Gastropathy: None - Kidneys: CKD [...] risk for sleep apnea, BRCA2 positive,Breast cancer ([facility]) ([facility]) (2017), Breast cancer ([facility]/HCC) ([facility]) (2017), Colon cancer ([facility]/HCC) ([facility]), Colon cancer (CMS/HCC) ([facility]) (2017), Colon polyps, COPD (chronic obstructive pulmonary disease) ([facility]) ([facility]), Depression, DVT (deep vein thrombosis) in (05/2017), DVT (deep venous thrombosis) ([facility]/HCC) ([facility]) (05/2018), Former smoker, History of [...] labs, imaging, and diagnostics independently reviewed in [facility] and commented on below. No results found for: TSH, T3FREE, FREET4, TSI, THYROGLOBULI, THGAB No results found for: CHOL, TRIG, HDL, LDLCALC, LDLDIRECT No results found for: CORTISOL, PTH, 25HYDROVITD, CPEPTIDE, TFW05AH, IA2AB Lab Results Component Value Date HGBA1C 6.9 12/09/2020 [id number] 6.5 (H) 02/05/2019 Assessment & Plan Type [...] modification and weight loss. Can follow with gear cutting machine set up operator Orders Placed This Encounter ??? POCT glucose [...] Priority Date/Time Associated Diagnosis Comments POCT GLUCOSE 51671 Routine 12/09/2020 1: 50 PM CDT Type 2 diabetes mellitus with other kidney complication, unspecified whether networks software consultant insulin use (HCC) POCT HEMOGLOBIN A1C Routine 12/09/2020 1 :50 PM CDT Type 2 diabetes mellitus with other kidney complication, unspecified whether fpc insulin use (HCC) documented in this encounter [...] mellitus with other kidney complication, unspecified whether networks software consultant insulin use (HCC)- Primary documented in this encounter Historical Medications * This list may reflect changes made after this encounter. Bydureon BCise 2 mg/0.85 mL auto-injector INJECT 2MG UNDER THE SKIN EVERY WEEK 11/20/2020 02/01/2022 added in this encounter Orders Outpatient Referral Count Last Ordered Date Fir st Ordered Date AMB REFERRAL TO ENDOCRINOLOGY 1 12/09/2020 documented in this encounter Care Teams Fur Floor Worker Relationship Specialty Start Date End Date Ravi Smith MD PCP - General 11/04/17 09/27/21 AftKianna MD PhD [address] [place] [address] Surgeon Surgical Oncology 11/22/17 Santiago Gilbert MD [address] [place] [address] Computer Software Engineer Gastroenterology 11/22/17 Dmitry Sanderson MD [address] [place] [address] Referring Physician Colon and Rectal Surgery 12/03/1805/06 Abbi Ventura MD [address] [facility] [address] [place] [address] Medical Oncologist/Analyst Geochemical Prospecting Medical Oncology 12/03/18 Montse Thompson MD [address] [place], [place] [address] Consulting Physician Gynecologic Oncology 12/03/18 Lela Hardy MD PhD [address] [facility] [address] [place] [address] Radiation Oncologist Radiation Oncology 12/23/18 Kianna Bunch MD PhD [address] [place] [address] Surgeon Surgical Oncology 12/23/18 09/17/21 documented as of this encounter
--- OUTSIDE RECORDS SUMMARY | 2024-04-24 14:49 | XMS_ITS | Encounter Summary ---
Author Organization [facility] Address [address] [place] [address] Phone Care Team Providers Care Public Relations Specialist Name Role Phone Ravi Smith MD Primary Care Provider [phone] Aft, Kianna Machado MD PhD Unavailable [phone] Santiago Gilbert MD Unavailable [phone] Dmitry Sanderson MD Unavailable [phone] Abbi Ventura MD Unavailable Montse Thompson MD Unavailable [phone] Lela Hardy MD PhD Unavailable [phone] Aft, Kianna Machado MD PhD Unavailable [phone] Reason for Referral * (Routine) - Closed Specialty Diagnoses / Procedures Referred By Contac t Referred To Contact Diagnoses Moderate persistent asthma, unspecified whether complicated Procedures Pulmonary Function Test -[facility] Adult PFT Lab- CAM-8D; Spirometry, Oxygen Assessment Titration Cristobal Dong MD [address] [place] [address] Phone: tel: fax: Referral ID Status Reason Start Date Expiration Date Visits Re quested Visits Authorized [id number] Closed 07/26/2020 08/25/2021 1 1 L BOAT ENGINEER Reason for Visit * (Routine) - Closed Specialty Diagnoses / Procedures Referred By Contac t Referred To Contact Diagnoses Moderate persistent asthma, unspecified whether complicated Procedures Pulmonary Function Test -[facility] Adult PFT Lab- CAM-8D; Spirometry, Oxygen Assessment Titration Cristobal Dong MD [address] [place] [address] Phone: tel: fax: Referral ID Status Reason Start Date Expiration Date Visits Re quested Visits Authorized [id number] Closed 07/26/2020 08/25/2021 1 1 Encounter Details Date Type Department Care Team (Latest Contact Info) Description 03/21/2021 1:25 PM SMALL BOAT ENGINEER - 03/21/2021 2:53 PM SMALL BOAT ENGINEER Hospital Encounter [facility] Pulmonary [address] [facility] [address] [place] [address] Moderate persistent asthma, unspecified whether complicated Discharge [...] on file Legal Sex Female 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 Gender Identity Not on file Sexual [...] FUNCTION TEST (PFT) Routine 03/21/2021 2:00 PM SMALL BOAT ENGINEER Moderate persistent asthma, unspecified whether complicated documented in this encounter Results * Pulmonary Function Test - (03/21/2021 2:00 PM SMALL BOAT ENGINEER) FVC PRE 2.38 L [facility] FVC %PRE PRED 65 % [facility] FEV1 PRE 1.86 L [facility] FEV1 %PRE PRED 65 % [facility] FEV1/FVC PRE 77.8 % [facility] Anatomical Region Laterality Modality PFT 03/21/2021 1:30 PM SMALL BOAT ENGINEER Narrative 03/23/2021 12:22 PM SMALL BOAT ENGINEER [facility] Division of Pulmonary & Critical Care Medicine [address] [place] [address]; [address]; [place], [place] [address]; [phone] Pulmonary Function Laboratory Pulmonary Stress Test Simple/Oxygen Assessment Patient: Aleah Gerber Date: 03/21/2021 Physician: MELISA Ht: 69IN ?? Wt: [id number] Room: OP Molder Operator: LG : 1955 Diagnosis: ASTHMA Time(min) Distance [...] Work [distance (m) x body wt (kg)]: 53910 kg.m (normal >60,000 kg.m) Oxygen required to [...] complicated documented in this encounter Care Teams Public Relations Specialist Relationship Specialty Start Date End Date Ravi Smith MD PCP - General 11/04/17 09/27/21 Aft, Kianna Machado MD PhD [address] [place] [address] Surgeon Surgical Oncology 11/22/17 Santiago Gilbert MD [address] [place] [address] Inventory Taker Gastroenterology 11/22/17 Dmitry Sanderson MD [address] [place] [address] Referring Physician Colon and Rectal Surgery 12/03/1805/06 Abbi Ventura MD [facility] [address] [place] [address] Medical Oncologist/C Architect Medical Oncology 12/03/18 Montse Thompson MD [address] [place] [address] Consulting Physician Gynecologic Oncology 12/03/18 Lela Hardy MD PhD [address] [facility] [address] [place] [address] Radiation Oncologist Radiation Oncology 12/23/18 Aft, Kianna Machado MD PhD [address] [facility] [facility] [address] [place] [address] Surgeon Surgical Oncology 12/23/18 09/17/21 documented as of this encounter
--- OUTSIDE RECORDS SUMMARY | 2024-04-24 14:50 | XMS_ITS | Encounter Summary ---
Author Organization [facility] Address [address] [place] [address] Phone Care Team Providers Care Flume Ride Operator Name Role Phone Ravi Smith MD Primary Care Provider [phone] Aft, Kianna Machado MD PhD Unavailable [phone] Santiago Gilbert MD Unavailable [phone] Dmitry Sanderson MD Unavailable [phone] Abbi Ventura MD Unavailable Montse Thompson MD Unavailable Lela Hardy MD PhD Unavailable Aft, Kianna Machado MD PhD Unavailable [phone] Encounter Details Date Type Department Care Team (Late st Contact Info) Description 09/23/2020 Orders Only [facility] Oncology [address] [place] [address] Abbi Ventura MD [address] [facility] [address] [place] [address] Malignant neoplasm of descending colon (CMS/HCC) (Primary [...] file Legal Sex Female 1:06 AM CAD MANAGER Gender Identity Not on file Sexual Orientation Not on file documented as of this encounter Plan of Treatment Not on file documented as of this encounter Results * CEA (09/29/2020 12:05 PM CDT) Pathologist [facility] CEA 2.1 <=5.0 ng/mL [facility] Comment: Interpretive Data: Reference Range: Non-Smokers: 0.0 ? 5.0 ng/mL Smokers: 0.0 ? 6.5 ng/mL Current interpretive data was last revised 2020. Blood specimen (specimen) 09/29/2020 12:05 PM CDT 09/29/2020 1:39 PM CDT us Abbi Ventura MD LAB BLOOD ORDERABLES Final Resul t [facility] Department [place] [address] * (ABNORMAL) Comprehensive metabolic panel (09/29/2020 12:05 PM CDT) [facility] Sodium 140 135 - 145 mmol/L [facility] Potassium, pl 4.0 3.3 - 4.9 mmol/L [facility] Chloride 104 97 - 110 mmol/L [facility] CO2 29 22 - 32 mmol/L [facility] Anion gap 7 2 - 15 mmol/L [facility] BUN 23 8 - 25 mg/dL [facility] Creatinine 1.45(H) 0.60 - 1.10 mg/dL [facility] Glucose 160 70 - 199 mg/dL [facility] Comment: Interpretive Data Fasting glucose >/= 126 [...] 2017. Calcium 9.6 8.5 - 10.3 mg/dL [facility] Bilirubin, total 0.6 0.1 - 1.2 mg/dL [facility] Protein, pl 6.9 6.5 - 8.5 g/dL [facility] Albumin 4.0 3.5 - 5.0 g/dL [facility] Alk phos 88 40 - 130 Units/L [facility] ALT 13 7 - 45 Units/L [facility] AST 22 10 - 45 Units/L [facility] Blood specimen (specimen) 09/29/2020 12:05 PM CDT 09/29/2020 12:12 PM CDT us Abbi Ventura MD LAB BLOOD ORDERABLES Final Resul t [facility] [place] [address] * CBC with auto differential (09/29/2020 12:05 PM CDT) WBC 7.5 3.8 - 9.9 K/cumm [facility] Hgb 12.2 11.9 - 15.5 g/dL [facility] Hct 37.2 35.6 - 45.5 % [facility] Plt 166 150 - 400 K/cumm [facility] MPV 9.8 9.1 - 12.3 fL [facility] RBC 3.93 3.90 - 5.20 M/cumm [facility] MCV 94.7 81.3 - 96.4 fL [facility] MCH 31.0 27.1 - 33.3 pg [facility] MCHC 32.8 32.3 - 35.7 g/dL [facility] RDW CV 12.8 11.1 - 14.9 % [facility] RDW SD 44.4 35.7 - 48.1 fL [facility] NRBC abs 0.00 0.00 - 0.01 K/cumm [facility] Blood specimen (specimen) 09/29/2020 12:05 PM CDT 09/29/2020 12:12 PM CDT us Abbi Ventura MD LAB BLOOD ORDERABLES Final Resul t [facility] Department [place] [address] documented in this encounter Visit Diagnoses Diagnosis [...] 09/29/2020 documented in this encounter Care Teams Flume Ride Operator Relationship Specialty Start Date End Date Ravi Smith MD PCP - General 11/04/17 09/27/21 Aft, Kianna Machado MD PhD [address] [place] [address] Surgeon Surgical Oncology 11/22/17 Santiago Gilbert MD [address] [place] [address] Behavioral Health Counselor Gastroenterology 11/22/17 Dmitry Sanderson MD [address] [place] [address] Referring Physician Colon and Rectal Surgery 12/03/1805/06 Abbi Ventura MD [address] [place], [place] [address] Medical Oncologist/Store Facility Technician Medical Oncology 12/03/18 Montse Thompson MD [address] [place] [address] Consulting Physician Gynecologic Oncology 12/03/18 Lela Hardy MD PhD [address] [place] [address] Radiation Oncologist Radiation Oncology 12/23/18 Aft, Kianna Machado MD PhD [address] [place] [address] Surgeon Surgical Oncology 12/23/18 09/17/21 documented as of this encounter
--- OUTSIDE RECORDS SUMMARY | 2024-04-24 14:50 | XMS_ITS | Encounter Summary ---
Author Organization [facility] Address [address] [place] [address] Care Team Providers Care Legal Instructor Name Role Phone Ravi Smith MD Primary Care Provider [phone] Aft, Kianna Machado MD PhD Unavailable [phone] Santiago Gilbert MD Unavailable [phone] Dmitry Sanderson MD Unavailable [phone] Abbi Ventura MD Unavailable Montse Thompson MD Unavailable [phone] Lela Hardy MD PhD Unavailable Aft, Kianna Machado MD PhD Unavailable Encounter Details Date Type Department Care Team (Late st Contact Info) Description 09/12/2020 3:40 PM CDT Lab [facility] [place] [address] Montse Thompson MD [address] [facility] [phone] [place] [address] BRCA2 gene mutation positive in [...] file Legal 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 Gender Identity Not on file Sexual [...] 125 ag 7.9 0.0 - 35.0 units/mL [facility] Blood specimen (specimen) 09/12/2020 3:44 PM CDT 09/12/2020 4:01 PM CDT us Premal Ac Thompson MD LAB BLOOD ORDERABLES Fin al Result Performing Organization Address City/State/[facility] Co de Phone Number [facility] Department [place] [address] documented in this encounter Visit Diagnoses Diagnosis BRCA2 gene mutation positive in female documented in this encounter Care Teams Legal Instructor Relationship Specialty Start Date End Date Ravi Smith MD PCP - General 11/04/17 09/27/21 Aft, Kianna Machado MD PhD [address] [place] [address] Surgeon Surgical Oncology 11/22/17 Santiago Gilbert MD [address] [place] [address] Director Of Safety And Security Gastroenterology 11/22/17 Dmitry Sanderson MD [address] [place] [address] Referring Physician Colon and Rectal Surgery 12/03/1805/06 Abbi Ventura MD [address] [place] [address] [address] [place] [address] Medical Oncologist/Sand Bobber Medical Oncology 12/03/18 Montse Thompson MD [address] [place] [address] [address] [place] [address] Consulting Physician Gynecologic Oncology 12/03/18 Lela Hardy MD PhD [address] [place] [address] [address] [place] [address] Radiation Oncologist Radiation Oncology 12/23/18 Aft, Kianna Machado MD PhD [address] [place] [address] [address] [place] [address] Surgeon Surgical Oncology 12/23/18 09/17/21 documented as of this encounter
--- OUTSIDE RECORDS SUMMARY | 2024-04-24 14:50 | XMS_ITS | Encounter Summary ---
Author Organization [facility] [employer] [facility] Address [address] [place] [address] Phone Care Team Providers Care Program Management Professional Name Role Phone Ravi Smith MD Primary Care Provider [phone] Aft, Kianna Machado MD PhD Unavailable Santiago Gilbert MD Unavailable [phone] Dmitry Sanderson MD Unavailable [phone] Abbi Ventura MD Unavailable Montse Thompson MD Unavailable [phone] Lela Hardy MD PhD Unavailable [phone] Aft, Kianna Machado MD PhD Unavailable [phone] Encounter Details Date Type Department Care Team (Late st Contact Info) Description 2020 Telephone [facility] Pulmonary [address] [facility] 8th [place] [address] [place] [address] Adelina Morton RN Social History Tobacco Use [...] on file Legal Sex Female 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 Gender Identity Not on file Sexual [...] on filedocumented in this encounter Care Teams Program Management Professional Relationship Specialty Start Date End Date Ravi Smith MD PCP - General 11/04/17 09/27/21 Aft, Kianna Machado MD PhD [address] [place] [address] Surgeon Surgical Oncology 11/22/17 Santiago Gilbert MD [address] [place] [address] Practice Director Gastroenterology 11/22/17 Dmitry Sanderson MD [address] [place] [address] Referring Physician Colon and Rectal Surgery 12/03/1805/06 Abbi Ventura MD [address] [place] [address] [address] [place] [address] Medical Oncologist/Vascular Surgery Physician Medical Oncology 12/03/18 Montse Thompson MD [address] [facility] [address] [place], [place] [address] Consulting Physician Gynecologic Oncology 12/03/18 Lela Hardy MD PhD [address] [facility] [address] [place], [place] [id number] Radiation Oncologist Radiation Oncology 12/23/18 Aft, Kianna Machado MD PhD [address] [facility] [address] [place], [place] [address] Surgeon Surgical Oncology 12/23/18 09/17/21 documented as of this encounter
--- OUTSIDE RECORDS SUMMARY | 2024-04-24 14:50 | XMS_ITS | Encounter Summary ---
Author Organization [facility] Address [address] [place] [address] Phone Care Team Providers Care Environmental Health Inspector Name Role Phone Ravi Smith MD Primary Care Provider [phone] Aft, Kianna Machado MD PhD Unavailable [phone] Santiago Gilbert MD Unavailable [phone] Dmitry Sanderson MD Unavailable [phone] Abbi Ventura MD Unavailable Montse Thompson MD Unavailable [phone] Lela Hardy MD PhD Unavailable [phone] Aft, Kianna Machado MD PhD Unavailable Reason for Referral * (Routine) - Closed Specialty Diagnoses / Procedures Referred By Contac t Referred To Contact Diagnoses VIOLETTE (obstructive sleep apnea) Asthma Procedures Pulmonary Function Test -[facility] PFT [facility]- [facility]; Spirometry, Oxygen Assessment Titration Cristobal Dong MD [address] [facility] [address] [place] [address] Phone: tel: fax: Referral ID Status Reason Start Date Expiration Date Visits Re quested Visits Authorized [id number] Closed 12/01/2019 12/30/2020 1 1 Reason for Visit * (Routine) - Closed Specialty Diagnoses / Procedures Referred By Contac t Referred To Contact Diagnoses VIOLETTE (obstructive sleep apnea) Asthma Procedures Pulmonary Function Test -[facility] PFT [facility]- [facility]-8D; Spirometry, Oxygen Assessment Titration Cristobal Dong MD [address] [place] [address] Phone: tel: fax: Referral ID Status Reason Start Date Expiration Date Visits Re quested Visits Authorized [id number] Closed 12/01/2019 12/30/2020 1 1 Encounter Details Date Type Department Care Team (Latest Contact Info) Description 07/26/2020 11:42 AM CDT - 07/26/2020 3:25 PM CDT Hospital Encounter [facility] Pulmonary [address] [facility] [address] [place] [address] VIOLETTE (obstructive sleep apnea); Asthma Discharge Disposition: [...] on file Legal Sex Female 1: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 GREEN 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 Gender Identity Not on file Sexual Orientation [...] 12:14 PM CDT) FVC PRE 2.38 L [facility] FVC %PRE PRED 64 % [facility] FEV1 PRE 1.91 L [facility] FEV1 %PRE PRED 66 % [facility] FEV1/FVC PRE 80.4 % [facility] Anatomical Region Laterality Modality PFT 07/26/2020 11:5 2 AM CDT Narrative 08/01/2020 10:55 AM CDT [facility] Division of Pulmonary & Critical Care Medicine [address] [place] [address]; [place] [address]; [place], [place] ??[address]; [phone] Pulmonary Function Laboratory Pulmonary Stress Test Simple/Oxygen Assessment Patient: Aleah Gerber Date: 07/26/2020 Physician: Iker Ht: 69 in ?? Wt: 242 lbs Room: OP Debt Management Counselor: Sarah : 1955 Diagnosis: Asthma, VIOLETTE Time(min) [...] with the written final report. PFT performed at:->[facility] Adult PFT Lab- [facility]-8D Procedure:->Spirometry Procedure:->Oxygen Assessment Titration Cristobal Dong MD PFT ORDERABLES Final Result documented in this encounter Visit Diagnoses Diagnosis VIOLETTE (obstructive sleep apnea) Obstructive sleep apnea (adult) (pediatric) Asthma Unspecified asthma documented in this encounter Care Teams Environmental Health Inspector Relationship Specialty Start Date End Date Ravi Smith MD PCP - General 11/04/17 09/27/21 Aft, Kianna Machado MD PhD [address] [place] [address] Surgeon Surgical Oncology 11/22/17 Santiago Gilbert MD [address] [place] [address] Job Counselor Gastroenterology 11/22/17 Dmitry Sanderson MD [address] [place] [address] Referring Physician Colon and Rectal Surgery 12/03/1805/06 Abbi Ventura MD [address] [place] [address] [address] [place] [address] Medical Oncologist/Career Transition Specialist Medical Oncology 12/03/18 Montse Thompson MD [address] [place] [address] [address] [place] [address] Consulting Physician Gynecologic Oncology 12/03/18 Lela Hardy MD PhD [address] [place] [address] [address] [place] [address] Radiation Oncologist Radiation Oncology 12/23/18 Aft, Kianna Machado MD PhD [address] [place] [address] [address] [place] [address] Surgeon Surgical Oncology 12/23/18 09/17/21 documented as of this encounter
--- OUTSIDE RECORDS SUMMARY | 2024-04-24 14:50 | XMS_ITS | Encounter Summary ---
Author Organization [facility] Address [address] [place] [address] Phone Care Team Providers Care Threat Monitoring Analyst Name Role Phone Ravi Smith MD Primary Care Provider [phone] Aft, Kianna Machado MD PhD Unavailable [phone] Santiago Gilbert MD Unavailable [phone] Dmitry Sanderson MD Unavailable [phone] Abbi Ventura MD Unavailable Montse Thompson MD Unavailable [phone] Lela Hardy MD PhD Unavailable [phone] Aft, Kianna Machado MD PhD Unavailable [phone] Encounter Details Date Type Department Care Team (Late st Contact Info) Description 06/21/2020 Telephone [facility]ational [facility] [address] 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 scheduled appointment * Telephone Encounter - Nat Loyd OT - 06/21/2020 12:54 PM COAL TRIMMER MACHINE OPERATOR OT called to check in with patient, due to last appointment being cancelled, but not rescheduled. Requested return call. TRIMMER MACHINE OPERATOR documented in this encounter Plan of Treatment Not on file documented as of this encounter Visit Diagnoses Not on filedocumented in this encounter Care Teams Threat Monitoring Analyst Relationship Specialty Start Date End Date Ravi Smith MD PCP - General 11/04/17 09/27/21 Aft, Kianna Machado MD PhD [address] [place] [address] Surgeon Surgical Oncology 11/22/17 Santiago Gilbert MD [address] [place] [address] Nurseryperson Gastroenterology 11/22/17 Dmitry Sanderson MD [address] [place] [address] Referring Physician Colon and Rectal Surgery 12/03/1805/06 Abbi Ventura MD [address] [facility] [address] [place], [place] [address] Medical Oncologist/Teacher Associate Medical Oncology 12/03/18 Montse Thompson MD [address] [facility] [address] [place] [address] Consulting Physician Gynecologic Oncology 12/03/18 Lela Hardy MD PhD [address] [facility] [address] [place] [address] Radiation Oncologist Radiation Oncology 12/23/18 Aft, Kianna Machado MD PhD [address] [facility] [address] [place], [place] [address] Surgeon Surgical Oncology 12/23/18 09/17/21 documented as of this encounter
--- OUTSIDE RECORDS SUMMARY | 2024-04-24 14:50 | XMS_ITS | Encounter Summary ---
Author Organization [facility] Address [address] [place] [address] Phone Care Team Providers Care Master Lay Out Specialist Name Role Phone Ravi Smith MD Primary Care Provider [phone] Aft, Kianna Machado MD PhD Unavailable [phone] Santiago Gilbert MD Unavailable [phone] Dmitry Sanderson MD Unavailable [phone] Abbi Ventura MD Unavailable Montse Thompson MD Unavailable [phone] Lela Hardy MD PhD Unavailable [phone] Aft, Kianna Machado MD PhD Unavailable Encounter Details Date Type Department Care Team (Late st Contact Info) Description 09/29/2020 12:15 PM CDT Lab [facility] Oncology [address] [place] [address] Malignant neoplasm of upper-inner quadrant of left [...] file 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 Gender Identity Not on file Sexual Orientation [...] abs 5.0 1.7 - 6.5 K/cumm [facility] Imm gran abs 0.0 0.0 - 0.1 K/cumm [facility] Lymphocyte abs 1.5 0.8 - 3.3 K/cumm [facility] Monocyte abs 0.5 0.2 - 0.8 K/cumm [facility] Eosinophil abs 0.4 0.0 - 0.5 K/cumm [facility] Basophil abs 0.1 0.0 - 0.1 K/cumm [facility] Neutrophil pct 66.9 % [facility] Comment: Interpretive Data Percent cell count reference ranges are not reported, since discordance with absolute values may lead to misinterpretation of CBC data. Current Interpretive Data was last revised on 2017. Imm gran pct 0.3 % [facility] Comment: Interpretive Data Percent cell count reference ranges are not reported, since discordance with absolute values may lead to misinterpretation of CBC data. Current Interpretive Data was last revised on 2017. Lymphocyte pct 20.1 % [facility] Comment: Interpretive Data Percent cell count reference ranges are not reported, since discordance with absolute values may lead to misinterpretation of CBC data. Current Interpretive Data was last revised on 2017. Monocyte pct 6.5 % [facility] Comment: Interpretive Data Percent cell count reference ranges are not reported, since discordance with absolute values may lead to misinterpretation of CBC data. Current Interpretive Data was last revised on 2017. Eosinophil pct 5.3 % [facility] Comment: Interpretive Data Percent cell count reference ranges are not reported, since discordance with absolute values may lead to misinterpretation of CBC data. Current Interpretive Data was last revised on 2017. Basophil pct 0.9 % [facility] Comment: Interpretive Data Percent cell count reference ranges are not reported, since discordance with absolute values may lead to misinterpretation of CBC data. Current Interpretive Data was last revised on 2017. Blood specimen (specimen) 09/29/2020 12:05 PM CDT 09/29/2020 12:12 PM CDT us Abbi Ventura MD LAB BLOOD ORDERABLES Final Resul t [facility] One [facility] [place] [address] * CBC with auto differential (09/29/2020 12:05 PM CDT) WBC 7.5 3.8 - 9.9 K/cumm [facility] Hgb 12.2 11.9 - 15.5 g/dL [facility] Hct 37.2 35.6 - 45.5 % [facility] Plt 166 150 - 400 K/cumm [facility] MPV 9.8 9.1 - 12.3 fL [facility] RBC 3.93 3.90 - 5.20 M/cumm [facility] MCV 94.7 81.3 - 96.4 fL [facility] MCH 31.0 27.1 - 33.3 pg [facility] MCHC 32.8 32.3 - 35.7 g/dL [facility] RDW CV 12.8 11.1 - 14.9 % [facility] RDW SD 44.4 35.7 - 48.1 fL [facility] NRBC abs 0.00 0.00 - 0.01 K/cumm [facility] Blood specimen (specimen) 09/29/2020 12:05 PM CDT 09/29/2020 12:12 PM CDT us Abbi Ventura MD LAB BLOOD ORDERABLES Final Resul t [facility] One [facility] [place] [address] * (ABNORMAL) Comprehensive metabolic panel (09/29/2020 12:05 PM CDT) Sodium 140 135 - 145 mmol/L [facility] Potassium, pl 4.0 3.3 - 4.9 mmol/L [facility] Chloride 104 97 - 110 mmol/L [facility] CO2 29 22 - 32 mmol/L [facility] Anion gap 7 2 - 15 mmol/L [facility] BUN 23 8 - 25 mg/dL [facility] Creatinine 1.45(H) 0.60 - 1.10 mg/dL [facility] Glucose 160 70 - 199 mg/dL [facility] Comment: Interpretive Data Fasting [...] 2017. Calcium 9.6 8.5 - 10.3 mg/dL [facility] Bilirubin, total 0.6 0.1 - 1.2 mg/dL [facility] Protein, pl 6.9 6.5 - 8.5 g/dL [facility] Albumin 4.0 3.5 - 5.0 g/dL [facility] Alk phos 88 40 - 130 Units/L [facility] ALT 13 7 - 45 Units/L [facility] AST 22 10 - 45 Units/L [facility] Blood specimen (specimen) 09/29/2020 12:05 PM CDT 09/29/2020 12:12 PM CDT Abbi Ventura MD LAB BLOOD ORDERABLES Final Resul t Performing Organization Address City/[facility] de Phone Number [facility] [place] [address] * CEA (09/29/2020 12:05 PM CDT) CEA 2.1 <=5.0 ng/mL [facility] Comment: Interpretive Data: Reference Range: Non-Smokers: 0.0 ? 5.0 ng/mL Smokers: 0.0 ? 6.5 ng/mL Current interpretive data was last revised 2020. 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) Malignant neoplasm of descending colon documented in this encounter Orders Appointment Requests Count Last Ordered Date Fi rst Ordered Date ONCBCN LAB APPOINTMENT 1 09/29/2020 documented in this encounter Care Teams Master Lay Out Specialist Relationship Specialty Start Date End Date Ravi Smith MD PCP - General 11/04/17 09/27/21 Aft, Kianna Machado MD PhD [address] [place] [address] Surgeon Surgical Oncology 11/22/17 Santiago Gilbert MD [address] [place] [address] Textile Artist Gastroenterology 11/22/17 Dmitry Sanderson MD [address] [place] [address] Referring Physician Colon and Rectal Surgery 12/03/1805/06 Abbi Ventura MD [address] [place] [address] [address] [place] [address] Medical Oncologist/Supervisor Paper Testing Medical Oncology 12/03/18 Montse Thompson MD [address] [place] [address] [address] [place] [address] Consulting Physician Gynecologic Oncology 12/03/18 Lela Hardy MD PhD [address] [place] [address] [address] [place] [address] Radiation Oncologist Radiation Oncology 12/23/18 Kianna Bunch MD PhD [facility] [place] [address] Surgeon Surgical Oncology 12/23/18 09/17/21 documented as of this encounter
--- OUTSIDE RECORDS SUMMARY | 2024-04-24 14:50 | XMS_ITS | Encounter Summary ---
Author Organization [facility] Address [address] [place] [address] Care Team Providers Care Sheriffs Name Role Phone Ravi Smith MD Primary Care Provider [phone] Aft, Kianna Machado MD PhD Unavailable Santiago Gilbert MD Unavailable [phone] Dmitry Sanderson MD Unavailable [phone] Birdie Ventura MD Unavailable Montse Thompson MD Unavailable [phone] Lela Hardy MD PhD Unavailable [phone] Aft, Kianna Machado MD PhD Unavailable [phone] Reason for Referral * Diagnostic Imaging (Routine) - Closed Specialty Diagnoses / Procedures [facility] Referred To Contact Radiology Diagnoses 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) Procedures MRI Breast Bilateral W WO Contrast Birdie Ventura MD [address] [facility] [address] [place] [address] Phone: tel: fax: [facility] Referral ID Status Reason Start Date Expiration Date Visits Re quested Visits Authorized [id number] Closed 12/23/2019 01/21/2021 1 1 ND OFFICER Reason for Visit * Diagnostic Imaging (Routine) - Closed Specialty Diagnoses / Procedures Referred By Contac t Referred To Contact Radiology Diagnoses 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) Procedures MRI Breast Bilateral W WO Contrast Birdie Ventura MD [address] [facility] [address] [place] [address] Phone: tel: fax: [facility] Referral ID Status Reason Start Date Expiration Date Visits Re quested Visits Authorized [id number] Closed 12/23/2019 01/21/2021 1 1 Encounter Details Date Type Department Care Team (Latest Contact Info) Description 04/19/2020 10:58 AM SECOND OFFICER - 04/19/2020 11:59 PM SECOND OFFICER Hospital Encounter [facility] Radiology [facility] [address] [place] [address] Birdie Ventura MD [address] [facility] [address] [place] [address] Malignant neoplasm of descending colon (CMS/HCC) Discharge [...] on file Legal Sex Female 1:06 AM SECOND OFFICER Gender Identity Not on file Sexual [...] Read Routine (OP Routine) 04/19/2020 11:58 AM SECOND OFFICER Malignant neoplasm of descending colon (CMS/HCC) documented in this encounter Results * MRI Breast Bilateral W WO Contrast (04/19/2020 11:58 AM SECOND OFFICER) Anatomical Region Laterality Modality Breast Bilateral Magnetic Resonan ce 04/19/2020 1:33 PM SECOND OFFICER Impressions 04/19/2020 5:19 PM SECOND OFFICER 1. No suspicious abnormality. Stable LEFT breast [...] Amari Akbar M.D. Narrative 04/19/2020 5:19 PM SECOND OFFICER ALEAH GERBER, : 1955 (64 years), , [...] For 1 dose Given 04/19/2020 11:35 AM SECOND OFFICER 20 mL documented in this encounter Orders Medications Ordered That [place] ht Not Have Been Administered Count Last Ordered Date First Ordered Date gadoterate meglumine (DOTARE M) 0.5 mmol/mL injection 20 mL 1 04/19/2020 documented in this encounter Care Teams Sheriffs Relationship Specialty Start Date End Date Ravi Smith MD PCP - General 11/04/17 09/27/21 Aft, Kianna Machado MD PhD [address] [place] [address] Surgeon Surgical Oncology 11/22/17 Santiago Gilbert MD [address] [place] [address] Soakers Supervisor Gastroenterology 11/22/17 Dmitry Sanderson MD [address] [place] [address] Referring Physician Colon and Rectal Surgery 12/03/1805/06 Birdie Ventura MD [address] [place] [address] [address] [place] [address] Medical Oncologist/Instructional Interventionist Medical Oncology 12/03/18 Montse Thompson MD [address] [place] [address] [place] [address] Consulting Physician Gynecologic Oncology 12/03/18 Lela Hardy MD PhD [address] [place] [address] [address] [place] [address] Radiation Oncologist Radiation Oncology 12/23/18 Aft, Kianna Machado MD PhD [address] [place] [address] [address] [place] [address] Surgeon Surgical Oncology 12/23/18 09/17/21 documented as of this encounter
--- OUTSIDE RECORDS SUMMARY | 2024-04-24 14:50 | XMS_ITS | Encounter Summary ---
Author Organization [facility] Address [address] [place] [address] Phone Care Team Providers Care Patient Attendant Name Role Phone Ravi Smith MD Primary Care Provider [phone] Aft, Kianna Machado MD PhD Unavailable [phone] Santiago Gilbert MD Unavailable [phone] Dmitry Sanderson MD Unavailable [phone] Abbi Ventura MD Unavailable Montse Thompson MD Unavailable [phone] Lela Hardy MD PhD Unavailable Aft, Kianna Machado MD PhD Unavailable [phone] Encounter Details Date Type Department Care Team (Late st Contact Info) Description 04/26/2020 12:15 PM AUTOMOTIVE PARTS MANAGER Lab [facility] Oncology [address] [place] [address] Malignant neoplasm of descending colon (CMS/HCC) Social [...] on file Legal Sex Female 1:06 AM AUTOMOTIVE PARTS MANAGER Gender Identity Not on file Sexual Orientation Not on file documented as of this encounter Plan of Treatment Not on file documented as of this encounter Procedures Procedure Name Priority Date/Time Associated Diagnosis Comments DIFFERENTIAL AUTO Routine 04/26/2020 12: 44 PM AUTOMOTIVE PARTS MANAGER Malignant neoplasm of descending colon (CMS/HCC) CBC WITH AUTO DIFFERENTIAL Routine 04/26/2020 12:44 PM AUTOMOTIVE PARTS MANAGER Malignant neoplasm of descending colon (CMS/HCC) CEA Routine 04/26/2020 12:44 PM AUTOMOTIVE PARTS MANAGER Malignant neoplasm of descending colon (CMS/HCC) COMPREHENSIVE METABOLIC PANEL Routine 04/26/2020 12:44 PM AUTOMOTIVE PARTS MANAGER Malignant neoplasm of descending colon (CMS/HCC) documented in this encounter Results * (ABNORMAL) Differential, auto (04/26/2020 12:44 PM AUTOMOTIVE PARTS MANAGER) Neutrophil abs 6.7(H) 1.7 - 6.5 K/cumm [facility] Imm gran abs 0.0 0.0 - 0.1 K/cumm [facility] Lymphocyte abs 1.6 0.8 - 3.3 K/cumm [facility] Monocyte abs 0.5 0.2 - 0.8 K/cumm [facility] Eosinophil abs 1.0(H) 0.0 - 0.5 K/cumm [facility] Basophil abs 0.1 0.0 - 0.1 K/cumm [facility] Neutrophil pct 67.9 % [facility] Comment: Interpretive Data Percent cell count reference ranges are not reported, since discordance with absolute values may lead to misinterpretation of CBC data. Current Interpretive Data was last revised on 2017. Imm gran pct 0.4 % [facility] Comment: Interpretive Data Percent cell count reference ranges are not reported, since discordance with absolute values may lead to misinterpretation of CBC data. Current Interpretive Data was last revised on 2017. Lymphocyte pct 16.1 % [facility] Comment: Interpretive Data Percent cell count reference ranges are not reported, since discordance with absolute values may lead to misinterpretation of CBC data. Current Interpretive Data was last revised on 2017. Monocyte pct 4.9 % [facility] Comment: Interpretive Data Percent cell count reference ranges are not reported, since discordance with absolute values may lead to misinterpretation of CBC data. Current Interpretive Data was last revised on 2017. Eosinophil pct 10.2 % [facility] Comment: Interpretive Data Percent cell count reference ranges are not reported, since discordance with absolute values may lead to misinterpretation of CBC data. Current Interpretive Data was last revised on 2017. Basophil pct 0.5 % [facility] Comment: Interpretive Data Percent cell count reference ranges are not reported, since discordance with absolute values may lead to misinterpretation of CBC data. Current Interpretive Data was last revised on 2017. Blood specimen (specimen) 04/26/2020 12:44 PM AUTOMOTIVE PARTS MANAGER 04/26/2020 12:46 PM AUTOMOTIVE PARTS MANAGER us Abbi Ventura MD LAB BLOOD ORDERABLES Final Resul t [facility] Department [place] [address] * CBC with auto differential (04/26/2020 12:44 PM AUTOMOTIVE PARTS MANAGER) WBC 9.9 3.8 - 9.9 K/cumm [facility] Hgb 12.3 11.9 - 15.5 g/dL [facility] Hct 37.5 35.6 - 45.5 % [facility] Plt 189 150 - 400 K/cumm [facility] MPV 9.8 9.1 - 12.3 fL [facility] RBC 4.02 3.90 - 5.20 M/cumm [facility] MCV 93.3 81.3 - 96.4 fL [facility] MCH 30.6 27.1 - 33.3 pg [facility] MCHC 32.8 32.3 - 35.7 g/dL [facility] RDW CV 13.1 11.1 - 14.9 % [facility] RDW SD 44.7 35.7 - 48.1 fL [facility] NRBC abs 0.00 0.00 - 0.01 K/cumm [facility] Blood specimen (specimen) 04/26/2020 12:44 PM AUTOMOTIVE PARTS MANAGER 04/26/2020 12:46 PM AUTOMOTIVE PARTS MANAGER us Abbi Ventura MD LAB BLOOD ORDERABLES Final Resul t [facility] Department [place] [address] * (ABNORMAL) Comprehensive metabolic panel (04/26/2020 12:44 PM AUTOMOTIVE PARTS MANAGER) Sodium 142 135 - 145 mmol/L [facility] Potassium, pl 3.5 3.3 - 4.9 mmol/L [facility] Chloride 107 97 - 110 mmol/L [facility] CO2 29 22 - 32 mmol/L [facility] Anion gap 6 2 - 15 mmol/L [facility] BUN 21 8 - 25 mg/dL [facility] Creatinine 1.37(H) 0.60 - 1.10 mg/dL [facility] Glucose 125 70 - 199 mg/dL [facility] Comment: Interpretive Data Fasting glucose [...] 2017. Calcium 9.7 8.5 - 10.3 mg/dL [facility] Bilirubin, total 0.4 0.1 - 1.2 mg/dL [facility] Protein, pl 7.1 6.5 - 8.5 g/dL [facility] Albumin 4.2 3.5 - 5.0 g/dL [facility] Alk phos 110 40 - 130 Units/L [facility] ALT 10 7 - 45 Units/L [facility] AST 20 10 - 45 Units/L [facility] Blood specimen (specimen) 04/26/2020 12:44 PM AUTOMOTIVE PARTS MANAGER 04/26/2020 12:46 PM AUTOMOTIVE PARTS MANAGER Abbi Ventura MD LAB BLOOD ORDERABLES Final Resul t Performing Organization Address [facility] Phone Number [facility] [place] [address] * CEA (04/26/2020 12:44 PM AUTOMOTIVE PARTS MANAGER) CEA 1.8 <=5.0 ng/mL [facility] Comment: Interpretative Data: Reference Range: Non-Smokers: 0.0 - 5.0 ng/mL Smokers: 0.0 ? 6.5 ng/mL This test was developed and its performance characteristics determined by the [facility] in a manner consistent with CLIA requirements. This test has not been cleared or approved by the U.S. Food and Drug Administration. Current interpretive data was last revised 2018. 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) Malignant neoplasm of descending colon documented in this encounter Orders Appointment Requests Count Last Ordered Date Fi rst Ordered Date ONCBCN LAB APPOINTMENT 1 04/26/2020 documented in this encounter Care Teams Patient Attendant Relationship Specialty Start Date End Date Ravi Smith MD PCP - General 11/04/17 09/27/21 Aft, Kianna Machado MD PhD [address] [place] [address] Surgeon Surgical Oncology 11/22/17 Santiago Gilbert MD [address] [place] [address] Crusher Foreman Gastroenterology 11/22/17 Dmitry Sanderson MD [address] [place] [address] Referring Physician Colon and Rectal Surgery 12/03/1805/06 Abbi Ventura MD [address] [place] [address] [address] [place] [address] Medical Oncologist/Welding Teacher Medical Oncology 12/03/18 Montse Thompson MD [address] [facility] [address] [place] [address] Consulting Physician Gynecologic Oncology 12/03/18 Lela Hardy MD PhD [address] [place] [address] [address] [place] [address] Radiation Oncologist Radiation Oncology 12/23/18 AftKianna MD PhD [address] [place] [address] [address] [place] [address] Surgeon Surgical Oncology 12/23/18 09/17/21 documented as of this encounter
--- OUTSIDE RECORDS SUMMARY | 2024-04-24 14:50 | XMS_ITS | Encounter Summary ---
Author Organization [facility] Healthcare Address [address] [place] [address] Care Team Providers Care Turn Sewer Name Role Phone Ravi Smith MD Primary Care Provider [phone] Aft, Kianna Machado MD PhD Unavailable [phone] Santiago Gilbert MD Unavailable [phone] Dmitry Sanderson MD Unavailable [phone] Abbi Ventura MD Unavailable Montse Thompson MD Unavailable [phone] Lela Hardy MD PhD Unavailable [phone] Aft, Kianna Machado MD PhD Unavailable [phone] Encounter Details Date Type Department Care Team (Late st Contact Info) Description 08/18/2020 2:13 PM CDT Hospital Encounter [facility] OP INTERIM Beto Mckeon MD [address] [facility] [address] [place] [address] Social History Tobacco Use Types Packs/Day Years [...] on file 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 Patient Name: ALEAH GERBER ? MR#: [id number] ?? 23 ? Status: REG CLI ? D.O.B: 1955 Age: ??65 ?Sex: Female ? ADM/SER Dt: 08/18/20 ?Disch Dt: ? LOC: H.[id number].MB1 ? Ordering Phy: Beto Mckeon MD ? Order #[id number] ? Carotid Ultrasound Bilateral ?? Beto Valdiviarosaura [...] internal carotid artery. ? NTS ? Job: [id number] ? Dictated By: Beto Mckeon MD ?? Dictated For: Beto Mckeon MD ? <Electronically signed by Beto Mckeon MD> ? 08/18/20 1656 ?? Resulting Agency Comment O Procedure Note Beto Mckeon MD - 08/18/2020 Patient Name: ALEAH GERBER #: [id number] Status: REG CLI D.O.B: 1955 Age: 65Sex: Female ADM/SER Dt: 08/18/20 Disch [facility]y: Beto Mckeon MD Order #[id number] Carotid Ultrasound Bilateral Beto Mckeon MD Signed [...] in either internal carotid artery. NTS Job: [id number] Dictated By: Beto Mckeon MD Dictated For: Beto Mckeon MD <Electronically signed by Beto Mckeon MD> 08/18/20 1652 us Beto Mckeon MD IMG US PROCEDURES Final Res ult documented in this encounter Visit Diagnoses Not on filedocumented in this encounter Care Teams Turn Sewer Relationship Specialty Start Date End Date Raiv Smith MD PCP - General 11/04/17 09/27/21 Aft, Kianna Machado MD PhD [address] [place] [address] Surgeon Surgical Oncology 11/22/17 Santiago Gilbert MD [address] [place] [address] Bituminous Distributor Operator Gastroenterology 11/22/17 Dmitry Sanderson MD [address] [place] [address] Referring Physician Colon and Rectal Surgery 12/03/1805/06 Abbi Ventura MD [address] [facility] [address] [place] [address] Medical Oncologist/Community Cultural Development Officer Medical Oncology 12/03/18 Montse Thompson MD [address] [facility] [address] [place], [place] [address] Consulting Physician Gynecologic Oncology 12/03/18 Lela Hardy MD PhD [address] [place] [address] [place], [place] [address] Radiation Oncologist Radiation Oncology 12/23/18 Aft, Kianna Machado MD PhD [address] [facility] [address] [place] [address] Surgeon Surgical Oncology 12/23/18 09/17/21 documented as of this encounter
--- OUTSIDE RECORDS SUMMARY | 2024-04-24 14:50 | XMS_ITS | Encounter Summary ---
Author Organization [facility] Address [address] [place] [address] Phone Care Team Providers Care Distribution Field Technician Name Role Phone Ravi Smith MD Primary Care Provider [phone] Aft, Kianna Machado MD PhD Unavailable [phone] Santiago Gilbert MD Unavailable [phone] Dmitry Sanderson MD Unavailable [phone] Abbi Ventura MD Unavailable Montse Thompson MD Unavailable [phone] Lela Hardy MD PhD Unavailable [phone] Aft, Kianna Machado MD PhD Unavailable [phone] Reason for Visit * Reason Comments OT Discharge OT Treatment * Consultation (Routine) - Closed Specialty Diagnoses / Procedures Referred By Contac t Referred To Contact Occupational Therapy Diagnoses 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) Abbi Ventura MD [address] [place] [address] Phone: tel: fax: [facility] Occupational Therapy [address] [facility] 2[address] [place] [address] Phone: tel: fax: Referral ID Status Reason Start Date Expiration Date V isits Requested Visits Authorized [id number] Closed Specialty Services Required 12/24/2019 01/22/2021 24 37 Encounter Details Date Type Department Care Team (Late st Contact Info) Description 08/08/2020 9:00 AM CDT Therapy [facility] Occupational Therapy [address] [place] [address] Nat Loyd, OT [address] [place], [place] [id number] Executive function deficit (Primary Dx); Malignant neoplasm [...] on file Legal Sex Female 1:06 AM KETTLE COORDINATOR Gender Identity Not on file Sexual Orientation Not on file documented as of this encounter Progress Notes * Nat Loyd, OT - 08/08/2020 9:00 AM CDT OT Discharge Note Aleah Gerber (1955) is being discharged from [facility] OT Services on 08/08/2020 Executive function deficit [...] a FitBit. Falls: no Pain reported: no Director Compensation present: No. NA Objective: Client participated in [...] a difference. Taking a picture of my marketing planner. Stopping before leaving home to make [...] 2 action plans with >50% success using Xvxm-cnbh-fq-check cognitive strategy MET 01/29/20 STG5 Client will [...] colon documented in this encounter Care Teams Distribution Field Technician Relationship Specialty Start Date End Date Ravi Smith MD PCP - General 11/04/17 09/27/21 AftKianna MD PhD [address] [place] [address] Surgeon Surgical Oncology 11/22/17 Santiago Gilbert MD [address] [place] [address] Aircraft Life Support Fitter Gastroenterology 11/22/17 Dmitry Sanderson MD [address] [place] [address] Referring Physician Colon and Rectal Surgery 12/03/1805/06 Abbi Ventura MD [address] [place] [address] [address] [place] [address] Medical Oncologist/Ground Instructor Advanced Medical Oncology 12/03/18 Montse Thompson MD [address] [place] [address] [address] [place] [address] Consulting Physician Gynecologic Oncology 12/03/18 Lela Hardy MD PhD [address] [place] [address] [address] [place] [address] Radiation Oncologist Radiation Oncology 12/23/18 AftKianna MD PhD [facility] [address] [place] [address] Surgeon Surgical Oncology 12/23/18 09/17/21 documented as of this encounter
--- OUTSIDE RECORDS SUMMARY | 2024-04-24 14:50 | XMS_ITS | Encounter Summary ---
Author Organization [facility] Healthcare [place] Care Team Providers Care Enterer Name Role Phone Ravi Smith MD Primary Care Provider [phone] Aft, Kianna Machado MD PhD Unavailable [phone] Santiago Gilbert MD Unavailable [phone] Dmitry Sanderson MD Unavailable [phone] Abbi Ventura MD Unavailable Montse Thompson MD Unavailable [phone] Lela Hardy MD PhD Unavailable [phone] Aft, Kianna Machado MD PhD Unavailable [phone] Encounter Details Date Type Department Care Team (Late st Contact Info) Description 2020 Orders Only [facility] Health Information Management Cristobal Dong MD [address] [facility] [address] [place] [address] Irregular heart beat Social History Tobacco Use [...] file Legal Sex Female 1:06 AM CREDIT REPRESENTATIVE Gender Identity Not on file Sexual [...] dysrhythmia documented in this encounter Care Teams Enterer Relationship Specialty Start Date End Date Ravi Smith MD PCP - General 11/04/17 09/27/21 Aft, Kianna Machado MD PhD [address] [place] [address] Surgeon Surgical Oncology 11/22/17 Santiago Gilbert MD [address] [place] [address] Cosmetic Dentist Gastroenterology 11/22/17 Dmitry Sanderson MD [address] [place] [address] Referring Physician Colon and Rectal Surgery 12/03/1805/06 Abbi Ventura MD [address] [place] [address] Medical Oncologist/Rod Cup Filler Medical Oncology 12/03/18 Montse Thompson MD [address] [place] [address] Consulting Physician Gynecologic Oncology 12/03/18 Lela Hardy MD PhD [address] [place] [address] Radiation Oncologist Radiation Oncology 12/23/18 Aft, Kianna Machado MD PhD [address] [facility] [address] [place] [address] Surgeon Surgical Oncology 12/23/18 09/17/21 documented as of this encounter
--- OUTSIDE RECORDS SUMMARY | 2024-04-24 14:50 | XMS_ITS | Encounter Summary ---
Author Organization [facility] Healthcare Address [address] [place] [address] Care Team Providers Care Airplane Technician Name Role Phone Ravi Smith MD Primary Care Provider [phone] Aft, Kianna Machado MD PhD Unavailable [phone] Santiago Gilbert MD Unavailable [phone] Dmitry Sanderson MD Unavailable [phone] Abbi Ventura MD Unavailable Montse Thompson MD Unavailable [phone] Lela Haryd MD PhD Unavailable [phone] Aft, Kianna Machado MD PhD Unavailable Reason for Referral * Diagnostic Imaging (Routine) - Closed Specialty Diagnoses / Procedures Referred By Contac t Referred To Contact Diagnoses Moderate persistent asthma, unspecified whether complicated Procedures XR Chest Pa Lateral 2 Views Cristobal Dong MD [address] [facility] [address] [place] [address] Phone: tel: fax: [address] [address] Referral ID Status Reason Start Date Expiration Date Visits Re quested Visits Authorized [id number] Closed 07/26/2020 08/25/2021 1 1 Reason for Visit * Diagnostic Imaging (Routine) - Closed Specialty Diagnoses / Procedures Referred By Contac t Referred To Contact Diagnoses Moderate persistent asthma, unspecified whether complicated Procedures XR Chest Pa Lateral 2 Views Cristobal Dong MD [address] [place] [address] Phone: tel: fax: [facility] [address] [facility] [place] [address] Referral ID Status Reason Start Date Expiration Date Visits Re quested Visits Authorized [id number] Closed 07/26/2020 08/25/2021 1 1 Encounter Details Date Type Department Care Team (Latest Contact Info) Description 07/26/2020 3:26 PM CDT - 07/26/2020 11:59 PM CDT Hospital Encounter [facility] [address] [place] [address] Cristobal Dong MD [address] [facility] [place] [address] Moderate persistent asthma, unspecified whether [...] on file Legal Sex Female 1:06 AM DRUG ROOM CLERK Gender Identity Not on file Sexual [...] complicated documented in this encounter Care Teams Airplane Technician Relationship Specialty Start Date End Date Ravi Smith MD PCP - General 11/04/17 09/27/21 Aft, Kianna Machado MD PhD [address] [place] [address] Surgeon Surgical Oncology 11/22/17 Santiago Gilbert MD [address] [place] [address] Travel Ticketing Reviewer Gastroenterology 11/22/17 Dmitry Sanderson MD [address] [place] [address] Referring Physician Colon and Rectal Surgery 12/03/1805/06 Abbi Ventura MD [address] [place] [address] Medical Oncologist/Word Processing Machine Operator Medical Oncology 12/03/18 Montse Thompson MD [address] [place] [address] Consulting Physician Gynecologic Oncology 12/03/18 Lela Hardy MD PhD [address] [facility] [address] [place] [address] Radiation Oncologist Radiation Oncology 12/23/18 Aft, Kianna Machado MD PhD [address] [facility] [address] [place] [address] Surgeon Surgical Oncology 12/23/18 09/17/21 documented as of this encounter
--- OUTSIDE RECORDS SUMMARY | 2024-04-24 14:50 | XMS_ITS | Encounter Summary ---
Author Organization [facility] Address [address] [facility] [address] [place] [address] Care Team Providers Care Tongue And Quarter Stitcher Name Role Phone Ravi Smith MD Primary Care Provider [phone] Aft, Kianna Machado MD PhD Unavailable Santiago Gilbert MD Unavailable [phone] Dmitry Sanderson MD Unavailable [phone] Abbi Ventura MD Unavailable Montse Thompson MD Unavailable [phone] Lela Hardy MD PhD Unavailable [phone] Aft, Kianna Machado MD PhD Unavailable [phone] Reason for Visit * Reason Comments New Patient Amaurosis fugax * Consultation (Routine) - Closed Specialty Diagnoses / Procedures Referred By Vijaya simpson Referred To Contact Vascular Surgery Diagnoses Amaurosis fugax Ravi Smith MD Phone: tel: fax: Beto Mckeon MD [address] [place] [address] [address] Phone: tel: fax: Referral ID Status Reason Start Date Expiration Date V isits Requested Visits Authorized [id number] Closed Specialty Services Required 08/05/2020 09/04/2021 1 1 Encounter Details Date Type Department Care Team (Late st Contact Info) Description 08/18/2020 1:30 PM CDT Office Visit [facility] Vascular and Vein Surgery [address] [facility] [address] [place] [address] Beto Mckeon MD [address] [place] [address] [address] [place] [address] Essential hypertension (Primary Dx); Amaurosis fugax; Hyperlipidemia, [...] on file Legal Sex Female 1:06 AM CASING RUNNER Gender Identity Not on file Sexual Orientation [...] Breast Needle Localization partial mastectomy (L), Biopsy [place] Lymph Node With Lymphoscintigraphy (L), Insertion Port [...] Gatherings with Friends and Family: ??? Attends Christian Services: ??? Active Member of Clubs or [...] 21 documented in this encounter Care Teams Tongue And Quarter Stitcher Relationship Specialty Start Date End Date Ravi Smith MD PCP - General 11/04/17 09/27/21 Kianna Bunch MD PhD [address] [place] [address] Surgeon Surgical Oncology 11/22/17 Santiago Gilbert MD [address] [place] [address] Exhibit Display Representative Gastroenterology 11/22/17 Dmitry Sanderson MD [address] [place] [address] Referring Physician Colon and Rectal Surgery 12/03/1805/06 Abbi Ventura MD [address] [place] [address] [address] [place] [address] Medical Oncologist/Reference Library Assistant Medical Oncology 12/03/18 Montse Thompson MD [address] [place] [address] [address] [place] [address] Consulting Physician Gynecologic Oncology 12/03/18 Lela Hardy MD PhD [address] [place] [address] [address] [place] [address] Radiation Oncologist Radiation Oncology 12/23/18 Kianna Bunch MD PhD [address] [place] [address] [address] [place] [address] Surgeon Surgical Oncology 12/23/18 09/17/21 documented as of this encounter
--- OUTSIDE RECORDS SUMMARY | 2024-04-24 14:50 | XMS_ITS | Encounter Summary ---
Author Organization [facility] Address [address] [place] [address] Phone Care Team Providers Care Draw Bench Operator Helper Name Role Phone Ravi Smith MD Primary Care Provider [phone] Aft, Kianna Machado MD PhD Unavailable [phone] Santiago Gilbert MD Unavailable [phone] Dmitry Sanderson MD Unavailable [phone] Abbi Ventura MD Unavailable Montse Thompson MD Unavailable [phone] Lela Hardy MD PhD Unavailable [phone] Aft, Kianna Machado MD PhD Unavailable [phone] Encounter Details Date Type Department Care Team (Late st Contact Info) Description 09/26/[address] [address] Uriel Corral Social History Tobacco Use Types [...] file Legal Sex Female 1:06 AM TECHNOLOGY DIRECTOR Gender Identity Not on file Sexual [...] on filedocumented in this encounter Care Teams Draw Bench Operator Helper Relationship Specialty Start Date End Date Ravi Smith MD PCP - General 11/04/17 09/27/21 Aft, Kianna Machado MD PhD [address] [place] [address] Surgeon Surgical Oncology 11/22/17 Santiago Gilbert MD [address] [place] [address] Policy Intern Gastroenterology 11/22/17 Dmitry Sanderson MD [address] [place] [address] Referring Physician Colon and Rectal Surgery 12/03/1805/06 Abbi Ventura MD [address] [place] [address] [address] [place] [address] Medical Oncologist/Product Safety Technician Medical Oncology 12/03/18 Montse Thompson MD [address] [place] [address] [address] [place] [address] Consulting Physician Gynecologic Oncology 12/03/18 Lela Hardy MD PhD [address] [place] [address] [address] [place] [address] Radiation Oncologist Radiation Oncology 12/23/18 Aft, Kianna Machado MD PhD [address] [place] [address] [address] [place] [address] Surgeon Surgical Oncology 12/23/18 09/17/21 documented as of this encounter
--- OUTSIDE RECORDS SUMMARY | 2024-04-24 14:50 | XMS_ITS | Encounter Summary ---
Author Organization [facility] Address [address] [place] [address] Phone Care Team Providers Care Junior Architect Name Role Phone Ravi Smith MD Primary Care Provider [phone] Aft, Kianna Machado MD PhD Unavailable [phone] Santiago Gilbert MD Unavailable [phone] Dmitry Sanderson MD Unavailable [phone] Abbi Ventura MD Unavailable Montse Thompson MD Unavailable [phone] Lela Hardy MD PhD Unavailable [phone] Aft, Kianna Machado MD PhD Unavailable [phone] Reason for Visit * Reason Comments OT Progress Note OT Treatment * Consultation (Routine) - Closed Specialty Diagnoses / Procedures Referred By Contac t Referred To Contact Occupational Therapy Diagnoses Malignant neoplasm of descending colon (CMS/HCC) (HCC) Abbi Ventura MD [address] [place] [address] Phone: tel: fax: [facility] Occupational Therapy [address] [facility] 2nd Floor [address] [place] [address] Phone: tel: fax: Referral ID Status Reason Start Date Expiration Date V isits Requested Visits Authorized [id number] Closed Specialty Services Required 12/24/2019 01/22/2021 24 37 Encounter Details Date Type Department Care Team (Late st Contact Info) Description 04/25/2020 1:00 PM SECURITIES SUPERVISOR Therapy [facility] Occupational Therapy [address] [place] [address] Nat Loyd, OT [address] [place], [place] [id number] Malignant neoplasm of descending colon (CMS/HCC) (Primary [...] on file Legal Sex Female 1:06 AM SECURITIES SUPERVISOR Gender Identity Not on file Sexual [...] up 500%. Falls: no Pain reported: no Recycle Worker present: No. NA Objective: Client participated in treatment session #12 x 60 minutes. 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 Pros/Cons discussed with greatest pro being extra income... also more structure to her day. 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, spouse may not want her [...] 2 action plans with >50% success using Yxko-gutv-ds-check cognitive strategy MET 01/29/20 STG5 Client will [...] End Time: 1405 Signature: ANNELIESE Sosa, OTR/L RITIES SUPERVISOR 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)- Primary Malignant neoplasm of descending colon Executive function deficit documented in this encounter Care Teams Junior Architect Relationship Specialty Start Date End Date Ravi Smith MD PCP - General 11/04/17 09/27/21 Aft, Kianna Machado MD PhD [address] [place] [address] Surgeon Surgical Oncology 11/22/17 Santiago Gilbert MD [address] [place] [address] Beamer Helper Gastroenterology 11/22/17 Dmitry Sanderson MD [address] [place] [address] Referring Physician Colon and Rectal Surgery 12/03/1805/06 Abbi Ventura MD [address] [place] [address] Medical Oncologist/Rotor Blade Installer Medical Oncology 12/03/18 Montse Thompson MD [address] [place] [address] Consulting Physician Gynecologic Oncology 12/03/18 Lela Hardy MD PhD [address] [facility] [address] [address] [place] [address] Radiation Oncologist Radiation Oncology 12/23/18 Aft, Kianna Machado MD PhD [address] [facility] [address] [address] [place] [address] Surgeon Surgical Oncology 12/23/18 09/17/21 documented as of this encounter
--- OUTSIDE RECORDS SUMMARY | 2024-04-24 14:50 | XMS_ITS | Encounter Summary ---
Author Organization [facility] Address [address] [place] [address] Phone Care Team Providers Care Diamond Broker Name Role Phone Ravi Smith MD Primary Care Provider [phone] Aft, Kianna Machado MD PhD Unavailable [phone] Santiago Gilbert MD Unavailable [phone] Dmitry Sanderson MD Unavailable [phone] Abbi Ventura MD Unavailable Montse Thompson MD Unavailable [phone] Lela Hardy MD PhD Unavailable [phone] Aft, Kianna Machado MD PhD Unavailable [phone] Reason for Visit * Reason Comments OT Progress Note OT Treatment * Consultation (Routine) - Closed Specialty Diagnoses / Procedures Referred By Contac t Referred To Contact Occupational Therapy Diagnoses Malignant neoplasm of descending colon (CMS/HCC) (HCC) Abbi Ventura MD [address] [place] [address] Phone: tel: fax: [facility] Occupational Therapy [address] [facility] 2nd Floor [address] [place] [address] Phone: tel: fax: Referral ID Status Reason Start Date Expiration Date V isits Requested Visits Authorized [id number] Closed Specialty Services Required 12/24/2019 01/22/2021 24 37 Encounter Details Date Type Department Care Team (Late st Contact Info) Description 07/11/2020 8:00 AM CLAY HOISTER Therapy [facility] Occupational Therapy [address] [place] [address] Nat Loyd, OT [address] [place], [place] [id number] Malignant neoplasm of descending colon (CMS/HCC) (Primary [...] on file Legal Sex Female 1:06 AM CLAY HOISTER Gender Identity Not on file Sexual Orientation Not on file documented as of this encounter Progress Notes * Nat Loyd, OT - 07/11/2020 8:00 AM CST OT Treatment Note Aleah Gerber (1955) was seen for outpatient occupational therapy treatment in clinic on 07/11/2020 Subjective: Ct reports, I'm much happier. Falls: no Pain reported: no Vineyard Supervisor present: No. NA Objective: Client participated [...] 2 action plans with >50% success using Vnot-kspg-mq-check cognitive strategy MET 01/29/20 STG5 Client will [...] deficit documented in this encounter Care Teams Diamond Broker Relationship Specialty Start Date End Date Ravi Smith MD PCP - General 11/04/17 09/27/21 AileentKianna MD PhD [address] [place] [address] Surgeon Surgical Oncology 11/22/17 Santiago Gilbert MD [address] [place] [address] Meeting Planner Gastroenterology 11/22/17 Dmitry Sanderson MD [address] [place] [address] Referring Physician Colon and Rectal Surgery 12/03/1805/06 Abbi Ventura MD [address] [place] [address] [address] [place] [address] Medical Oncologist/Home Specialist Medical Oncology 12/03/18 Montse Thompson MD [address] [place] [address] [address] [place] [address] Consulting Physician Gynecologic Oncology 12/03/18 Lela Hardy MD PhD [address] [place] [address] Radiation Oncologist Radiation Oncology 12/23/18 Kianna Bunch MD PhD [address] [place] [address] Surgeon Surgical Oncology 12/23/18 09/17/21 documented as of this encounter
--- OUTSIDE RECORDS SUMMARY | 2024-04-24 14:50 | XMS_ITS | Encounter Summary ---
Author Organization [facility] Address [address] [place] [address] Phone Care Team Providers Care Tree Driller Name Role Phone Hugo Smith MD Primary Care Provider [phone] Aft, Tony Machado MD PhD Unavailable [phone] Robert Soriano MD Unavailable [phone] Nicole López MD Unavailable [phone] Birdie Ventura MD Unavailable Montse Carter MD Unavailable [phone] Nilson Lopez MD PhD Unavailable [phone] Aft, Tony Machado MD PhD Unavailable [phone] Reason for Referral * (Routine) - Closed Specialty Diagnoses / Procedures Referred By Contac t Referred To Contact Diagnoses Moderate persistent asthma, unspecified whether complicated Procedures Pulmonary Function Test -[facility] Adult PFT Lab- CAM-8D; Spirometry, Oxygen Assessment Titration Cristobal Dong MD [address] [place] [address] Phone: tel: fax: Referral ID Status Reason Start Date Expiration Date Visits Re quested Visits Authorized [id number] Closed 07/26/2020 08/25/2021 1 1 * Diagnostic Imaging (Routine) - Closed Specialty Diagnoses / Procedures Referred By Vijaya simpson Referred To Contact Diagnoses Moderate persistent asthma, unspecified whether complicated Procedures XR Chest Pa Lateral 2 Views Cristobal Dong MD [address] [place] [address] Phone: tel: fax: [address] [address] Referral ID Status Reason Start Date Expiration Date Visits Re quested Visits Authorized [id number] Closed 07/26/2020 08/25/2021 1 1 * (Routine) - Closed Specialty Diagnoses / Procedures Referred By Vijaya simpson Referred To Contact Diagnoses Irregular heart beat Procedures ECG 12 lead Cristobal Dong MD [address] [place] [address] Phone: tel: fax: [address] [address] Referral ID Status Reason Start Date Expiration Date Visits Re quested Visits Authorized [id number] Closed 07/26/2020 08/25/2021 1 1 Encounter Details Date Type Department Care Team (Late st Contact Info) Description 07/26/2020 2:00 PM CDT Office Visit [facility] Pulmonary [address] [facility] Advanced Medicine 8th [place] [address] [place] [address] Cristobal Dong MD [address] [place] [address] Moderate persistent asthma, unspecified whether [...] on file Legal Sex Female 1:06 AM ENGLISH LANGUAGE ARTS TEACHER Gender Identity Not on file Sexual [...] on exertion, she has minimal with dressing, pgpt-cj-nbcbydsw with showering, and moderate with housework. She [...] - 2020 11:21 AM Cristobal Dong M.D. angiography technologist /lw cc: BIRDIE VENTURA M.D. [address] [place], [place] [id number] MONTSE CARTER MD [facility] Gynecological Oncology [address] [facility] [address] [place] [address] NICOLE LÓPEZ MD [address] [facility] [address] [place] [address] HUGO SMITH MD [address] [place] [address] / NILSON LOPEZ MD [address] [facility] [address] [place] [address] TONY GAY MD [address] [facility] Floor [address] [place] [address] ROBERT SORIANO MD [address] [facility] [address] [place] [address] / documented in this encounter Plan of Treatment Not on file documented as of this encounter Results * Pulmonary Function Test - (03/21/2021 2:00 PM ENGLISH LANGUAGE ARTS TEACHER) FVC PRE 2.38 L [facility] FVC %PRE PRED 65 % [facility] FEV1 PRE 1.86 L [facility] FEV1 %PRE PRED 65 % [facility] FEV1/FVC PRE 77.8 % [facility] Anatomical Region Laterality Modality PFT 03/21/2021 1:30 PM ENGLISH LANGUAGE ARTS TEACHER Narrative 03/23/2021 12:22 PM ENGLISH LANGUAGE ARTS TEACHER [facility] Division of Pulmonary & Critical Care Medicine [address] [place] [address]; [address] [facility]; [place], [place] [address]; [phone] Pulmonary Function Laboratory Pulmonary Stress Test Simple/Oxygen Assessment Patient: Aleah Gerber Date: 03/21/2021 Physician: MELISA Ht: 69IN ?? Wt: 252LBS Room: OP Bead Trimmer: LG FRANCOB: 1955 Diagnosis: ASTHMA Time(min) Distance [...] Work [distance (m) x body wt (kg)]: 96010 kg.m (normal >60,000 kg.m) Oxygen required to [...] with the written final report. PFT performed at:->[facility] Adult PFT Lab- CAM-8D Procedure:->Spirometry [...] 10/14/2020 added in this encounter Care Teams Tree Driller Relationship Specialty Start Date End Date Hugo Smith MD PCP - General 11/04/17 09/27/21 Aft, Tony Machado MD PhD [address] [place] [address] Surgeon Surgical Oncology 11/22/17 Robert Soriano MD [address] [place] [address] Occupational Health Manager Gastroenterology 11/22/17 Nicole López MD [address] [place] [address] Referring Physician Colon and Rectal Surgery 12/03/1805/06 Birdie Ventura MD [address] [facility] [address] [place] [address] Medical Oncologist/Fox Raiser Medical Oncology 12/03/18 Montse Carter MD [address] [facility] [address] [place] [address] Consulting Physician Gynecologic Oncology 12/03/18 Nilson Lopez MD PhD [address] [place] [address] [address] [place] [address] Radiation Oncologist Radiation Oncology 12/23/18 Aft, Tony Machado MD PhD [address] [place] [address] [address] [place] [address] Surgeon Surgical Oncology 12/23/18 09/17/21 documented as of this encounter
--- OUTSIDE RECORDS SUMMARY | 2024-04-24 14:50 | XMS_ITS | Encounter Summary ---
Author Organization [facility] Address [address] [place] [address] Phone Care Team Providers Care Manager Night Name Role Phone Ravi Smith MD Primary Care Provider [phone] Aft, Kianna Machado MD PhD Unavailable [phone] Santiago Gilbert MD Unavailable [phone] Dmitry Sanderson MD Unavailable [phone] Abbi Ventura MD Unavailable Montse Thompson MD Unavailable [phone] Lela Hardy MD PhD Unavailable [phone] Aft, Kianna Machado MD PhD Unavailable [phone] Reason for Referral * Diagnostic Imaging (Routine) - Closed Specialty Diagnoses / Procedures Referred By Contac t Referred To Contact Diagnoses Malignant neoplasm of upper-inner quadrant of left breast in female, 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) Procedures NM Bone Imaging Whole Body Abbi Ventura MD [address] [place] [address] Phone: tel: fax: [address] [address] Referral ID Status Reason Start Date Expiration Date Visits Re quested Visits Authorized [id number] Closed 09/29/2020 10/29/2021 2 2 * MRI/CAT/PET Scan (Routine) - Closed Specialty Diagnoses / Procedures Referred By Vijaya t Referred To Contact Radiology Diagnoses Malignant neoplasm of upper-inner quadrant of left breast in female, 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) Procedures CT Chest Abdomen Pelvis W Contrast Abbi Ventura MD [address] [place] [address] Phone: tel: fax: [facility] Referral ID Status Reason Start Date Expiration Date Visits Re quested Visits Authorized [id number] Closed 09/29/2020 10/29/2021 1 1 Encounter Details Date Type Department Care Team (Late st Contact Info) Description 09/29/2020 12:45 PM CDT Office Visit [facility] Oncology [address] [place] [address] Abbi Ventura MD [address] [place], [place] [id number] Malignant neoplasm of descending colon (CMS/HCC) (Primary [...] on file Legal Sex Female 1:06 AM LOCKSTITCHER Gender Identity Not on file Sexual Orientation [...] disease, she has appointment coming up with acquisition manager to evaluate for fibromyalgia and other connective [...] CT CAP and bone scan result F/u Batch Blender as above Will call Dr. Gilbert's office [...] side effects from treatment. Abbi Ventura MD assistant signal maintainer Division of Oncology Section of Medical Oncology [facility] Seed Potato Arranger completed by using M*Modal Fluency Direct speaking software, therefore, transcriptionvariances may occur. documented in this encounter Plan of Treatment Not on file documented as of this encounter Results * (ABNORMAL) Comprehensive metabolic panel (03/23/2021 2:02 PM LOCKSTITCHER) Sodium 142 135 - 145 mmol/L [facility] Potassium, pl 4.6 3.3 - 4.9 mmol/L [facility] Chloride 106 97 - 110 mmol/L [facility] CO2 27 22 - 32 mmol/L [facility] Anion gap 9 2 - 15 mmol/L [facility] BUN 32(H) 8 - 25 mg/dL [facility] Creatinine 1.98(H) 0.60 - 1.10 mg/dL [facility] Glucose 209(H) 70 - 199 mg/dL [facility] [...] 2017. Calcium 9.6 8.5 - 10.3 mg/dL [facility] Bilirubin, total 0.4 0.1 - 1.2 mg/dL [facility] Protein, pl 7.0 6.5 - 8.5 g/dL [facility] Albumin 4.2 3.5 - 5.0 g/dL [facility] Alk phos 94 40 - 130 Units/L [facility] ALT 14 7 - 45 Units/L [facility] AST 18 10 - 45 Units/L [facility] Blood 03/23/2021 2:02 PM LOCKSTITCHER 03/23/2021 2:05 PM LOCKSTITCHER us Abbi Ventura MD LAB BLOOD ORDERABLES Final Resul t [facility] Department [place] [address] * (ABNORMAL) CBC with auto differential (03/23/2021 2:02 PM LOCKSTITCHER) WBC 9.9 3.8 - 9.9 K/cumm [facility] Hgb 11.7(L) 11.9 - 15.5 g/dL [facility] Hct 35.8 35.6 - 45.5 % [facility] Plt 178 150 - 400 K/cumm [facility] MPV 10.2 9.1 - 12.3 fL [facility] RBC 3.66(L) 3.90 - 5.20 M/cumm [facility] MCV 97.8(H) 81.3 - 96.4 fL [facility] MCH 32.0 27.1 - 33.3 pg [facility] MCHC 32.7 32.3 - 35.7 g/dL [facility] RDW CV 13.2 11.1 - 14.9 % [facility] RDW SD 47.7 35.7 - 48.1 fL [facility] NRBC abs 0.00 0.00 - 0.01 K/cumm [facility] Blood 03/23/2021 2:02 PM LOCKSTITCHER 03/23/2021 2:05 PM LOCKSTITCHER Abbi Ventura MD LAB BLOOD ORDERABLES Final Resul t [facility] [place] [address] * CEA (03/23/2021 2:02 PM LOCKSTITCHER) CEA 1.5 <=5.0 ng/mL [facility] Comment: Interpretive Data: Reference Range: Non-Smokers: 0.0 ? 5.0 ng/mL Smokers: 0.0 ? 6.5 ng/mL Current interpretive data was last revised 2020. Blood 03/23/2021 2:02 PM LOCKSTITCHER 03/23/2021 7:06 PM LOCKSTITCHER Abbi Ventura MD LAB BLOOD ORDERABLES Final Resul t [facility] [place] [address] * NM Bone Imaging Whole Body (10/06/2020 [...] 03/23/2021 documented in this encounter Care Teams Manager Night Relationship Specialty Start Date End Date Ravi Smith MD PCP - General 11/04/17 09/27/21 AftKianna MD PhD [address] [place] [address] Surgeon Surgical Oncology 11/22/17 Santiago Gilbert MD [address] [place] [address] Importer Or Exporter Gastroenterology 11/22/17 Dmitry Sanderson MD [address] [place] [address] Referring Physician Colon and Rectal Surgery 12/03/1805/06 Abbi Ventura MD [address] [place] [address] [address] [place] [address] Medical Oncologist/Piped Buttonhole Machine Operator Medical Oncology 12/03/18 Montse Thompson MD [address] [place] [address] [address] [place] [address] Consulting Physician Gynecologic Oncology 12/03/18 Lela Hardy MD PhD [address] [place] [address] [address] [place] [address] Radiation Oncologist Radiation Oncology 12/23/18 Kianna Bunch MD PhD [facility] [place] [address] Surgeon Surgical Oncology 12/23/18 09/17/21 documented as of this encounter
--- OUTSIDE RECORDS SUMMARY | 2024-04-24 14:50 | XMS_ITS | Encounter Summary ---
Author Organization [facility] Address [address] [facility] [address] [place] [address] Phone Care Team Providers Care Gear Nicker Name Role Phone Hugo Smith MD Primary Care Provider [phone] Aft, Tony Machado MD PhD Unavailable Santiago Gilbert MD Unavailable [phone] Nicole López MD Unavailable [phone] Birdie Ventura MD Unavailable Montse Thompson MD Unavailable [phone] Lela Hardy MD PhD Unavailable Aft, Tony Machado MD PhD Unavailable [phone] Reason for Visit * Reason Comments Annual Exam Encounter Details Date Type Department Care Team (Late st Contact Info) Description 09/12/2020 2:00 PM CDT Office Visit [facility] [address] [facility] 13th [place] [address] [place] [address] Montse Thompson MD [address] [facility] [id number] [place] [address] BRCA2 gene mutation positive in [...] Legal Sex Female 1:06 AM TALENT ACQUISITION SPECIALIST Gender Identity Not on file Sexual [...] that we could refer her to [facility], but she declines. 4. Follow-up would be ideally in 1 year's time, unless the CA-125 shows an abnormality. ELECTRONICALLY SIGNED - 09/13/2020 10:58 AM Montse Thompson M.D. Professor, Department of Obstetrics and Gynecology Director of Gynecological Oncology Clinical Research Division of Gynecologic Oncology [facility] [id number] cc: BIRDIE VENTURA M.D. / TONY BUNCH [...] Abdomen and Pelvis LEEP (during clinic hours) STOCK REPAIRER Ultrasound MRI Mammogram PET Initiate Survivoship Care Plan Surveillance Labs (CBC w/ Diff, CMP, Magnesium, CA125) Labwork: ca 125 today and in a year x documented in this encounter Plan of Treatment Not on file documented as of this encounter Results * CA 125 (09/21/2021 1:55 PM CDT) CA 125 ag 9.7 0.0 - 38.0 units/mL [facility] Comment: Interpretive Data The Bo CA 125 assay procedure was used. Results from different manufacturers or methods may not be comparable. Serial testing should be performed using the same method. Blood 09/21/2021 1:55 PM CDT 09/21/2021 3:28 PM CDT Montse Thompson MD LAB BLOOD ORDERABLES Fin al Result Performing Organization Address [facility] de Phone Number [facility] [place] [address] * CA 125 (09/12/2020 3:44 PM CDT) CA 125 ag 7.9 0.0 - 35.0 units/mL [facility] Blood specimen (specimen) 09/12/2020 3:44 PM CDT 09/12/2020 4:01 PM CDT [facility] Ac Thompson MD LAB BLOOD ORDERABLES Fin al Result Performing Organization Address [facility] de Phone Number [facility] [place] [address] documented in this encounter Visit Diagnoses Diagnosis BRCA2 gene mutation positive in female- Primary documented in this encounter Discontinued Medications Medication Sig Discontinue Reason Start Date End Da te DULoxetine DR (CYMBALTA) 30 mg capsule TK 1 C PO QD 09/01/2019 09/12/2020 documented as of this encounter Care Teams Gear Nicker Relationship Specialty Start Date End Date Hugo Smith MD PCP - General 11/04/17 09/27/21 Aft, Tony Machado MD PhD [address] [place] [address] Surgeon Surgical Oncology 11/22/17 Santiago Gilbert MD [address] [place] [address] Director Of Maternity Services Gastroenterology 11/22/17 Nicole López MD [address] [place], [place] [id number] Referring Physician Colon and Rectal Surgery 12/03/1805/06 Birdie Ventura MD [address] [place] [address] [address] [place], [place] [id number] Medical Oncologist/Rotoprinter Medical Oncology 12/03/18 Montse Thompson MD [address] [place] [address] [address] [place] [address] Consulting Physician Gynecologic Oncology 12/03/18 Lela Hardy MD PhD [address] [place] [address] [address] [place], [place] [id number] Radiation Oncologist Radiation Oncology 12/23/18 Aft, Tony Machado MD PhD [address] [place] [address] [address] [place], [place] [id number] Surgeon Surgical Oncology 12/23/18 09/17/21 documented as of this encounter
--- OUTSIDE RECORDS SUMMARY | 2024-04-24 14:50 | XMS_ITS | Encounter Summary ---
Author Organization [facility] Address [address] [place] [address] Phone Care Team Providers Care Mathematical Sciences Professor Name Role Phone Ravi Smith MD Primary Care Provider [phone] Aft, Kianna Machado MD PhD Unavailable [phone] Santiago Gilbert MD Unavailable [phone] Dmitry Sanderson MD Unavailable [phone] Abbi Ventura MD Unavailable Montse Thompson MD Unavailable [phone] Lela Hardy MD PhD Unavailable [phone] Aft, Kianna Machado MD PhD Unavailable [phone] Encounter Details Date Type Department Care Team (Late st Contact Info) Description 04/26/2020 1:00 PM PASSENGER ELEVATOR OPERATOR Office Visit [facility] [address] [place] [address] Vianey Miller, REGULATORY ASSOCIATE [address] [place] [address] Malignant neoplasm of descending colon [...] file Legal Sex Female 1:06 AM PASSENGER ELEVATOR OPERATOR Gender Identity Not on file Sexual Orientation Not on file documented as of this encounter Last Filed Vital Signs Vital Sign Reading Time Taken Comments Blood Pressure 154/75 04/26/2020 12:47 PM PASSENGER ELEVATOR OPERATOR Pulse 74 04/26/2020 12:47 PM PASSENGER ELEVATOR OPERATOR Temperature 36.6 ??C (97.9 ??F) 04/26/2020 12:[address] Respiratory Rate 18 04/26/2020 12:47 PM PASSENGER ELEVATOR OPERATOR Oxygen Saturation 98% 04/26/2020 12:47 PM PASSENGER ELEVATOR OPERATOR Inhaled Oxygen Concentration - - Weight 106 kg (233 lb 11.2 oz) 04/26/2020 12:47 PM PASSENGER ELEVATOR OPERATOR Height - - Body Mass Index 34.51 03/30/2020 5:48 PM PASSENGER ELEVATOR OPERATOR documented in this encounter Progress Notes * Vianey Miller, REGULATORY ASSOCIATE - 04/26/2020 1:00 PM CST The Patient [...] ~ 1.4 cm, Grade 3, ER 0, PA 0, HER-2 IHC 0. Partial mastectomy and [...] Recent labs, radiology and pathology reviewed in [facility] ASSESSMENT: T4bN0 disease, Stage IIC [...] PLAN: Continue observation She will call Jessica wSanson's office, schedule Mammogram in September 2020 Asked [...] MSN, OCN, ANP Nurse Practitioner, Medical Oncology Power Generation Engineer completed by using [employer] speaking software, therefore, transcriptionvariances may occur. ENGER ELEVATOR OPERATOR documented in this encounter Plan of [...] 020 documented in this encounter Care Teams Mathematical Sciences Professor Relationship Specialty Start Date End Date Ravi Smith MD PCP - General 11/04/17 09/27/21 Aft, Kianna Machado MD PhD [address] [place] [address] Surgeon Surgical Oncology 11/22/17 Santiago Gilbert MD [address] [place] [address] Disability Advocate Gastroenterology 11/22/17 Dmitry Sanderson MD [address] [place] [address] Referring Physician Colon and Rectal Surgery 12/03/1805/06 Abbi Ventura MD [address] [place] [address] [address] [place] [address] Medical Oncologist/Panel Edge Painter Medical Oncology 12/03/18 Montse Thompson MD [address] [place] [address] [address] [place] [address] Consulting Physician Gynecologic Oncology 12/03/18 Lela Hardy MD PhD [address] [place] [address] [address] [place] [address] Radiation Oncologist Radiation Oncology 12/23/18 Aft, Kianna Machado MD PhD [address] [place] [address] [address] [place] [address] Surgeon Surgical Oncology 12/23/18 09/17/21 documented as of this encounter
--- OUTSIDE RECORDS SUMMARY | 2024-04-24 14:51 | XMS_ITS | Encounter Summary ---
Author Organization [facility] Address [address] [place] [address] Phone Care Team Providers Care Wire Hanger Name Role Phone Ravi Smith MD Primary Care Provider [phone] Aft, Kianna Machado MD PhD Unavailable [phone] Santiago Gilbert MD Unavailable [phone] Dmitry Sanderson MD Unavailable [phone] Abbi Ventura MD Unavailable Montse Thompson MD Unavailable Leal Hardy MD PhD Unavailable Aft, Kianna Machado MD PhD Unavailable [phone] Encounter Details Date Type Department Care Team (Late st Contact Info) Description 12/30/2019 Orders Only [facility] On[facility] [address] [place] [address] Abbi Ventura MD [address] [place] [facility] [address] [place] [address] Malignant neoplasm of descending colon (CMS/HCC) (Primary [...] approximately 13% higher for people identified as -Slovenian. eGFR NON-AFR. CROATIAN 50(L) > OR = 60 mL/min/1. 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, estrogen receptor negative (HCC) documented in this encounter Care Teams Wire Hanger Relationship Specialty Start Date End Date Ravi Smith MD PCP - General 11/04/17 09/27/21 Aft, Kianna Machado MD PhD [address] [place] [address] Surgeon Surgical Oncology 11/22/17 Santiago Gilbert MD [address] [place], [place] [id number] King Maker Gastroenterology 11/22/17 Dmitry Sanderson MD [address] [place], [place] [id number] Referring Physician Colon and Rectal Surgery 12/03/1805/06 Abbi Ventura MD [address] [place] [address] [address] [place] [address] Medical Oncologist/Delicatessen Clerk Medical Oncology 12/03/18 Montse Thompson MD [address] [place] [address] [address] [place] [address] Consulting Physician Gynecologic Oncology 12/03/18 Lela Hardy MD PhD [address] [place] [address] [address] [place], [place] [id number] Radiation Oncologist Radiation Oncology 12/23/18 Aft, Kianna Machado MD PhD [address] [place] [address] [address] [place], [place] [id number] Surgeon Surgical Oncology 12/23/18 09/17/21 documented as of this encounter
--- OUTSIDE RECORDS SUMMARY | 2024-04-24 14:51 | XMS_ITS | Encounter Summary ---
Author Organization [facility] Address [address] [place] [address] Care Team Providers Care Quality Assurance Technician Name Role Phone Ravi Smith MD Primary Care Provider [phone] Aft, Kianna Machado MD PhD Unavailable [phone] Santiago Gilbert MD Unavailable Dmitry Sanderson MD Unavailable [phone] Abbi Ventura MD Unavailable Montse Thompson MD Unavailable [phone] Lela Hardy MD PhD Unavailable [phone] Aft, Kianna Machado MD PhD Unavailable [phone] Encounter Details Date Type Department Care Team (Late st Contact Info) Description 04/04/2020 Telephone [facility] Radiation Oncology at [facility] [address] [place] [address] Lela Hardy MD PhD [address] [facility] [address] [place] [address] Social History Tobacco Use Types Packs/Day Years [...] on file Legal Sex Female 1:06 AM SNOW PLOW OPERATOR Gender Identity Not on file Sexual Orientation Not on file documented as of this encounter Miscellaneous Notes * Telephone Encounter - Tonny Rey RN - 04/04/2020 10:34 AM CST Returned call to Aleah and let her know her 03/30 MRI to brain shows no sign of metastatic disease.I notified Dr. Hardy and Zulema of this call. PLOW OPERATOR documented in this encounter Plan of Treatment Not on file documented as of this encounter Visit Diagnoses Not on filedocumented in this encounter Care Teams Quality Assurance Technician Relationship Specialty Start Date End Date Ravi Smith MD PCP - General 11/04/17 09/27/21 Aft, Kianna Machado MD PhD [address] [place] [address] Surgeon Surgical Oncology 11/22/17 Santiago Gilbert MD [address] [place] [address] Application Infrastructure Engineer Gastroenterology 11/22/17 Dmitry Sanderson MD [address] [place] [address] Referring Physician Colon and Rectal Surgery 12/03/1805/06 Abbi Ventura MD [address] [place] [address] [address] [place] [address] Medical Oncologist/Certified Pharmacy Tech Medical Oncology 12/03/18 Montse Thompson MD [address] [facility] [address] [place], [place] [id number] Consulting Physician Gynecologic Oncology 12/03/18 Lela Hardy MD PhD [address] [facility] [address] [place], [place] [id number] Radiation Oncologist Radiation Oncology 12/23/18 Aft, Kianna Machado MD PhD [address] [facility] [address] [place], [place] [address] Surgeon Surgical Oncology 12/23/18 09/17/21 documented as of this encounter
--- OUTSIDE RECORDS SUMMARY | 2024-04-24 14:51 | XMS_ITS | Encounter Summary ---
Author Organization [facility] Healthcare Address [address] [place] [address] Care Team Providers Care Environmental Construction Engineer Name Role Phone Ravi Smith MD Primary Care Provider [phone] Aft, Kianna Machado MD PhD Unavailable [phone] Santiago Gilbert MD Unavailable [phone] Dmitry Sanderson MD Unavailable [phone] Abbi Ventura MD Unavailable Montse Thompson MD Unavailable [phone] Lela Hardy MD PhD Unavailable [phone] Aft, Kianna Machado MD PhD Unavailable [phone] Reason for Referral * MRI/CAT/PET Scan (Routine) - Closed Specialty Diagnoses / Procedures Referred By [facility] Referred To Contact Radiology Diagnoses 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) Procedures CT chest abdomen pelvis with contrast Abbi Ventura MD [address] [facility] [address] [place] [address] Phone: tel: fax: [facility] Referral ID Status Reason Start Date Expiration Date Visits Re quested Visits Authorized [id number] Closed 12/23/2019 01/21/2021 1 1 [facility] Reason for Visit * MRI/CAT/PET Scan (Routine) - Closed Specialty Diagnoses / Procedures Referred By Vijaya t Referred To Contact Radiology Diagnoses 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) Procedures CT chest abdomen pelvis with contrast Abbi Ventura MD [address] [facility] [address] [place] [address] Phone: tel: fax: [facility] Referral ID Status Reason Start Date Expiration Date Visits Re quested Visits Authorized [id number] Closed 12/23/2019 01/21/2021 1 1 Encounter Details Date Type Department Care Team (Latest Contact Info) Description 04/19/2020 10:15 AM EDUCATION ADMINISTRATOR - 04/19/2020 10:57 AM EDUCATION ADMINISTRATOR Hospital Encounter [facility] [address] [place] [address] Abbi Ventura MD [address] [facility] [address] [place] [address] Malignant neoplasm of descending colon (CMS/HCC) Discharge [...] file Legal Sex Female 1:06 AM EDUCATION ADMINISTRATOR Gender Identity Not on file Sexual [...] Read Routine (OP Routine) 04/19/2020 10:53 AM EDUCATION ADMINISTRATOR Malignant neoplasm of descending colon (CMS/HCC) POCT CREATININE - DEVICE Routine 04/19/2020 10:47 AM EDUCATION ADMINISTRATOR documented in this encounter Results * CT chest abdomen pelvis with contrast (04/19/2020 10:53 AM EDUCATION ADMINISTRATOR) Anatomical Region Laterality Modality Body N/A Computed Tomogra phy 04/19/2020 11:1 2 AM EDUCATION ADMINISTRATOR Impressions 04/19/2020 11:12 AM EDUCATION ADMINISTRATOR No change when compared to the prior study. Changes of a partial colonic resection but no metastasis or recurrence within the chest, abdomen or pelvis. Electronically signed by: Ovidio Meyers M.D. Narrative 04/19/2020 11:12 AM EDUCATION ADMINISTRATOR EXAMINATION: CT CHEST, ABDOMEN AND PELVIS WITH [...] by: Ovidio Meyers M.D. Abbi Ventura MD [facility] CT PROCEDURES Final Result * (ABNORMAL) POCT creatinine (04/19/2020 10:47 AM EDUCATION ADMINISTRATOR) Creatinine POC 1.5(H) 0.6 - 1.1 mg/dL [facility] Blood specimen (specimen) 04/19/2020 10:47 AM EDUCATION ADMINISTRATOR 04/19/2020 10:47 AM EDUCATION ADMINISTRATOR us Abbi Ventura MD LAB POCT ORDERABLES - DEVICE Fin al Result [facility] Department [place] [address] documented in this encounter Visit Diagnoses Diagnosis [...] For 1 dose Given 04/19/2020 10:57 AM EDUCATION ADMINISTRATOR 100 mL documented in this encounter Orders Medications Ordered That Jefferson ht Not Have Been Administered Count Last Ordered Date First Ordered Date ioversoL (OPTIRAY 350) syrin ge syringe 100 mL 1 04/19/2020 documented in this encounter Care Teams Environmental Construction Engineer Relationship Specialty Start Date End Date Ravi Smith MD PCP - General 11/04/17 09/27/21 Aft, Kianna Machado MD PhD [address] [place] [address] Surgeon Surgical Oncology 11/22/17 Santiago Gilbert MD [address] [place] [address] Green Plumber Gastroenterology 11/22/17 Dmitry Sanderson MD [address] [place] [address] Referring Physician Colon and Rectal Surgery 12/03/1805/06 Abbi Ventura MD [address] [place] [address] [address] [place] [address] Medical Oncologist/Camp Tender Medical Oncology 12/03/18 Montse Thompson MD [address] [facility] [address] [place] [address] Consulting Physician Gynecologic Oncology 12/03/18 Lela Hardy MD PhD [address] [facility] [address] [place] [address] Radiation Oncologist Radiation Oncology 12/23/18 Aft, Kianna Machado MD PhD [address] [facility] [address] [place] [address] Surgeon Surgical Oncology 12/23/18 09/17/21 documented as of this encounter
--- OUTSIDE RECORDS SUMMARY | 2024-04-24 14:51 | XMS_ITS | Encounter Summary ---
Author Organization [facility] Address [address] [place] [address] Phone Care Team Providers Care Lidder Name Role Phone Ravi Smith MD Primary Care Provider [phone] Aft, Kianna Machado MD PhD Unavailable [phone] Santiago Gilbert MD Unavailable [phone] Dmitry Sanderson MD Unavailable [phone] Abbi Ventura MD Unavailable Montse Thompson MD Unavailable [phone] Lela Hardy MD PhD Unavailable Aft, Kianna Machado MD PhD Unavailable [phone] Reason for Visit * Reason Comments OT Treatment OT Progress Note * Consultation (Routine) - Closed Specialty Diagnoses / Procedures Referred By Contac t Referred To Contact Occupational Therapy Diagnoses 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) Abbi Ventura MD [address] [place] [address] Phone: tel: fax: [facility] Occupational Therapy [address] [facility] 2nd [address] [place] [address] Phone: tel: fax: Referral ID Status Reason Start Date Expiration Date V isits Requested Visits Authorized [id number] Closed Specialty Services Required 12/24/2019 01/22/2021 24 37 Encounter Details Date Type Department Care Team (Late st Contact Info) Description 01/25/2020 1:00 PM CDT Therapy [facility] Occupational Therapy [address] [place] [address] Nat Loyd, OT [address] [place], [place] [id number] Malignant neoplasm of descending colon (CMS/HCC) (Primary [...] file 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 Falls: no Pain reported: no Health Informatics Instructor present: No. NA Objective: Client participated in [...] photocopy and spiral bind it into a data processing systems project planner that will fit into her purse easily and then she will try to use that. Plan is to complete task and have data processing systems project planner ready to use within 3 days. [...] in her purse. She has purchased a data processing systems project planner with 'to-do sheets. Revising Plan: To put preferred data processing systems project planner pages, print them out, put them in new data processing systems project planner. Take a picture of my day so in case I don't have my data processing systems project planner with me, I will still know [...] 2 action plans with >50% success using Sivs-yxsv-vm-check cognitive strategy Progressing 01/29/20 STG5 Client will [...] deficit documented in this encounter Care Teams Lidder Relationship Specialty Start Date End Date Ravi Smith MD PCP - General 11/04/17 09/27/21 Aft, Kianna Machado MD PhD [address] [place] [address] Surgeon Surgical Oncology 11/22/17 Santiago Gilbert MD [address] [place] [address] Heliotherapist Gastroenterology 11/22/17 Dmitry Sanderson MD [address] [place] [address] Referring Physician Colon and Rectal Surgery 12/03/1805/06 Abbi Ventura MD [address] [facility] [address] [place] [address] Medical Oncologist/Special Education Math Teacher Medical Oncology 12/03/18 Montse Thompson MD [address] [facility] [address] [place] [address] Consulting Physician Gynecologic Oncology 12/03/18 Lela Hardy MD PhD [address] [place] [address] [address] [place] [address] Radiation Oncologist Radiation Oncology 12/23/18 Aft, Kianna Machado MD PhD [address] [facility] [address] [place] [address] Surgeon Surgical Oncology 12/23/18 09/17/21 documented as of this encounter
--- OUTSIDE RECORDS SUMMARY | 2024-04-24 14:51 | XMS_ITS | Encounter Summary ---
Author Organization [facility] Address [address] [place] [address] Phone Care Team Providers Care Valet Parking Attendant Name Role Phone Ravi Smith MD Primary Care Provider [phone] Aft, Kianna Machado MD PhD Unavailable [phone] Santiago Gilbert MD Unavailable [phone] Dmitry Sanderson MD Unavailable [phone] Abbi Ventura MD Unavailable Montse Thompson MD Unavailable [phone] Lela Hardy MD PhD Unavailable [phone] Aft, Kianna Machado MD PhD Unavailable [phone] Reason for Visit * Reason Comments OT Initial Eval * Consultation (Routine) - Closed Specialty Diagnoses / Procedures Referred By Contac t Referred To Contact Occupational Therapy Diagnoses Malignant neoplasm of descending colon (CMS/HCC) (HCC) Abbi Ventura MD [address] [place] [address] Phone: tel: fax: [facility] Occupational Therapy [address] 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 Stoker Erector And Servicer present: No. Primary language is Yakut Treatment Diagnosis: Malignant neoplasm of descending colon [...] How much did pain interfere with your hide selector? 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 How much [...] you to do something ??? Use of specialist physician or calendar to write down appointments and [...] and guided discussion regarding use of COOP/ Ttqs-Bbzv-Jn-Check strategy. to develop an action plan to [...] 2 action plans with >50% success using Ozxm-tuln-ri-check cognitive strategy New 01/04/20 01/29/20 STG5 Client [...] 01/04/2020 documented in this encounter Care Teams Valet Parking Attendant Relationship Specialty Start Date End Date Ravi Smith MD PCP - General 11/04/17 09/27/21 Kianna Bunch MD PhD [address] [place] [address] Surgeon Surgical Oncology 11/22/17 Santiago Gilbert MD [address] [place] [address] Tank Furnace Operator Gastroenterology 11/22/17 Dmitry Sanderson MD [address] [place] [address] Referring Physician Colon and Rectal Surgery 12/03/1805/06 Abbi Ventura MD [address] [place] [address] [address] [place] [address] Medical Oncologist/Driller Brake Lining Medical Oncology 12/03/18 Montse Thompson MD [address] [place] [address] [address] [place] [address] Consulting Physician Gynecologic Oncology 12/03/18 Lela Hardy MD PhD [address] [place] [address] Radiation Oncologist Radiation Oncology 12/23/18 Kianna Bunch MD PhD [facility] [address] [place] [address] Surgeon Surgical Oncology 12/23/18 09/17/21 documented as of this encounter
--- OUTSIDE RECORDS SUMMARY | 2024-04-24 14:51 | XMS_ITS | Encounter Summary ---
Author Organization [facility] Healthcare Address [address] [place] [address] Care Team Providers Care Testing Coordinator Name Role Phone Ravi Smith MD Primary Care Provider [phone] Aft, Kianna Machado MD PhD Unavailable [phone] Santiago Gilbert MD Unavailable [phone] Dmitry Sanderson MD Unavailable [phone] Abbi Ventura MD Unavailable Montse Thompson MD Unavailable [phone] Lela Hardy MD PhD Unavailable [phone] Aft, Kianna Machado MD PhD Unavailable [phone] Trena Obando MD Unavailable Dat Benito DO Primary Care Provider [phone] Encounter Details Date Type Department Care Team (Late st Contact Info) Description 03/24/2020 Telephone [facility] Radiation Oncology at [facility] [address] [place] [address] Diana Crisostomo MA Social History Tobacco Use [...] on file 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 Gender Identity Not on file Sexual Orientation Not on file documented as of this encounter Plan of Treatment Not on file documented as of this encounter Visit Diagnoses Not on filedocumented in this encounter Additional Health Concerns Infection Onset Date Last Indicated Resolved Time COVID: Suspected 05/02/2023 05/02/2023 05/02/2023 3:37 PM MAJOR ASSEMBLY LINEMAN documented as of this encounter Care Teams Testing Coordinator Relationship Specialty Start Date End Date Ravi Smith MD PCP - General 11/04/17 09/27/21 Dat Benito DO [address] [place] [address] PCP - General Internal Medicine 09/28/21 Aft, Kianna Machado MD PhD [address] [place] [address] Surgeon Surgical Oncology 11/22/17 Santiago Gilbert MD [address] [place] [address] Fruit Sprayer Gastroenterology 11/22/17 Dmitry Sanderson MD [address] [place] [address] Referring Physician Colon and Rectal Surgery 12/03/1805/06 Abbi Ventura MD [address] [facility] [address] [place] [address] Medical Oncologist/Boiler Fitter Medical Oncology 12/03/18 Montse Thompson MD [address] [facility] [address] [place] [address] Consulting Physician Gynecologic Oncology 12/03/18 Lela Hardy MD PhD [address] [facility] [address] [place] [address] Radiation Oncologist Radiation Oncology 12/23/18 Aft, Kianna Machado MD PhD [address] [facility] [address] [place] [address] Surgeon Surgical Oncology 12/23/18 09/17/21 Trena Obando MD [address] [place], [place] [address] Consulting Physician Neurology 09/18/21 documented as of this encounter
--- OUTSIDE RECORDS SUMMARY | 2024-04-24 14:51 | XMS_ITS | Encounter Summary ---
Author Organization [facility] Healthcare Address [address] [place] [address] Care Team Providers Care Adult Remedial Education Instructor Name Role Phone Ravi Smith MD Primary Care Provider [phone] Aft, Kianna Mahcado MD PhD Unavailable [phone] Santiago Gilbert MD Unavailable [phone] Dmitry Sanderson MD Unavailable [phone] Abbi Ventura MD Unavailable Montse Thompson MD Unavailable [phone] Lela Hardy MD PhD Unavailable [phone] Aft, Kianna Machado MD PhD Unavailable [phone] Reason for Referral * Diagnostic Imaging (Routine) - Closed Specialty Diagnoses / Procedures Referred By [facility] t Referred To Contact Radiology Diagnoses History of breast cancer Personal history of irradiation Disequilibrium Procedures MRI Brain W WO Contrast Zulema Dior NP [address] [facility] [address] [place] [address] Phone: tel: fax: [facility] Referral ID Status Reason Start Date Expiration Date Visits Re quested Visits Authorized [id number] Closed 03/23/2020 04/22/2021 1 1 ICAL SPECIALIST VASCULAR Reason for Visit * Reason Comments Follow-up Encounter Details Date Type Department Care Team ([facility] Contact Info) Description 03/23/2020 10:40 AM CLINICAL SPECIALIST VASCULAR Office Visit [facility] Radiation Oncology at [facility] [address] [place] [address] Sahy Nava MD [address] [facility] [address] [place] [address] Zulema Dior NP [address] [facility] [address] [place] [address] Encounter for follow-up examination after completed treatment [...] file Legal Sex Female 1:06 AM CLINICAL SPECIALIST VASCULAR Gender Identity Not on file Sexual Orientation Not on file documented as of this encounter Last Filed Vital Signs Vital Sign Reading Time Taken Comments Blood Pressure - - Pulse - - Temperature 36.8 ??C (98.2 ??F) 03/23/2020 1 0:56 AM CLINICAL SPECIALIST VASCULAR Respiratory Rate - - Oxygen Saturation - - Inhaled Oxygen Concentration - - Weight 108.1 kg (238 lb 4.8 oz) 020 10:56 AM CLINICAL SPECIALIST VASCULAR Height - - Body Mass Index 35.19 [...] Stage IIA (pT2, pN0(sn), cM0, G3, ER-, IA-, HER2-) - Signed by Roger Dorsey MD on 12/23/2018 - Clinical: Stage IIB (cT2, cN0, cM0, G3, ER-, IA-, HER2-) - Signed by Lela Hardy MD [...] User Date and Time NAT LOYD OT [[id number]] 03/20/2020 3:05 PM REVIEW OF SYSTEM Review [...] reviewed the imaging and Bilateral Mammogram at [facility] on 08/17/19: BI-RADS Category 2: benign. Bone Scan at [facility] on 06/24/19: No definite scintigraphic evidence of osseous metastatic disease. CT CAP at [facility] on 05/04/19: 1. No metastatic disease or recurrent disease within the chest, abdomenor pelvis. 2. Interval resolution of pulmonary emboli MR bilateral breast at [facility] on 04/23/19: BI-RADS Category 2: benign. Laboratory/Pathology: [...] Dr. Lela Hardy. Lela Hardy MD, PhD Industrial Technology Education Teacher Department of Radiation Oncology Cosigned by Lela Hardy MD PhD at 04/19/2020 8:19 AM CLINICAL SPECIALIST VASCULAR ICAL SPECIALIST VASCULAR ICAL SPECIALIST VASCULAR ICAL SPECIALIST VASCULAR ICAL SPECIALIST VASCULAR documented in this encounter Plan of Treatment Not on file documented as of this encounter Results * MRI Brain W WO Contrast (03/30/2020 6:28 PM CLINICAL SPECIALIST VASCULAR) Anatomical Region Laterality Modality Head and Neck N/A Magnetic Resonan ce 04/01/2020 11:4 3 AM CLINICAL SPECIALIST VASCULAR Impressions 04/01/2020 12:42 PM CLINICAL SPECIALIST VASCULAR No evidence of metastatic disease. Dictated by: Ollie Wood M.D. The radiology attending physician has personally reviewed this study, and had reviewed and/or edited this written report and agrees with it. Electronically signed by: Patricia Mehta M.D. Narrative 04/01/2020 12:42 PM CLINICAL SPECIALIST VASCULAR EXAMINATION: Magnetic resonance imaging (MRI) of the [...] 09/29/2020 added in this encounter Care Teams Adult Remedial Education Instructor Relationship Specialty Start Date End Date Ravi Smith MD PCP - General 11/04/17 09/27/21 Aft, Kianna Machado MD PhD [address] [place] [address] Surgeon Surgical Oncology 11/22/17 Santiago Gilbert MD [address] [place] [address] Water Aerobics Instructor Gastroenterology 11/22/17 Dmitry Sanderson MD [address] [place], [place] [address] Referring Physician Colon and Rectal Surgery 12/03/1805/06 Abbi Ventura MD [address] [facility] [address] [place] [address] Medical Oncologist/Jaw Skinner Medical Oncology 12/03/18 Montse Thompson MD [address] [facility] [address] [place] [address] Consulting Physician Gynecologic Oncology 12/03/18 Lela Hardy MD PhD [address] [facility] [address] [place] [address] Radiation Oncologist Radiation Oncology 12/23/18 Aft, Kianna Machado MD PhD [address] [facility] [address] [place], [place] [address] Surgeon Surgical Oncology 12/23/18 09/17/21 documented as of this encounter
--- OUTSIDE RECORDS SUMMARY | 2024-04-24 14:51 | XMS_ITS | Encounter Summary ---
Author Organization [facility] Address [address] [place] [address] Phone Care Team Providers Care Needlemaker Name Role Phone Ravi Smith MD Primary Care Provider [phone] Aft, Kianna Machado MD PhD Unavailable [phone] Santiago Gilbert MD Unavailable [phone] Dmitry Sanderson MD Unavailable [phone] Abbi Ventura MD Unavailable Montse Thompson MD Unavailable [phone] Lela Hardy MD PhD Unavailable [phone] Aft, Kianna Machado MD PhD Unavailable [phone] Reason for Visit * Reason Comments OT Treatment OT Progress Note * Consultation (Routine) - Closed Specialty Diagnoses / Procedures Referred By Contac t Referred To Contact Occupational Therapy Diagnoses Malignant neoplasm of descending colon (CMS/HCC) (HCC) Abbi Ventura MD [address] [place] [address] Phone: tel: fax: [facility] Occupational Therapy [address] [facility] 2nd Floor [address] [place] [address] Phone: tel: fax: Referral ID Status Reason Start Date Expiration Date V isits Requested Visits Authorized [id number] Closed Specialty Services Required 12/24/2019 01/22/2021 24 37 Encounter Details Date Type Department Care Team (Late st Contact Info) Description 02/01/2020 1:00 PM CDT Therapy [facility] Occupational Therapy [address] [place] [address] Nat Loyd, OT [address] [place], [place] [id number] Malignant neoplasm of descending colon (CMS/HCC) (Primary [...] on file Legal 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 I want to go to [place] after I leave here. I have never looked up anything before and it is so helpful to do that so I couldmake a plan... that is something I wouldn't have done before. Falls: no Pain reported: no Dealmaker present: No. NA Objective: Client participated in [...] photocopy and spiral bind it into a senior media planner that will fit into her purse easily and then she will try to use that. Plan is to complete task and have senior media planner ready to use within 3 days. DO / CHECK: Made copies, but pages are too large and they do not fit into her senior media planner binder. Use of plain notebook instead and stock pages that came with her binder with partial success. Ct with example, I took a picture of the list the other day instead of taking my senior media planner with me and I didn't even look at the list. I'm learning what works and doesn't work for me. OT Intervention: Ct participated in guided discovery and problem solving of barriers to planning and organization strategy use / current plan. Operations Manager/Coordinator pages were created with ct selecting 5 categories. Copies made for front/back and document sent to client via email. Revised Plan: Ct to print off, hole punch, new senior media planner sheets, continue to use notebook as [...] 2 action plans with >50% success using Rbjv-sjet-ka-check cognitive strategy MET 01/29/20 STG5 Client will [...] deficit documented in this encounter Care Teams Needlemaker Relationship Specialty Start Date End Date Ravi Smith MD PCP - General 11/04/17 09/27/21 Aft, Kianna Machado MD PhD [address] [place] [address] Surgeon Surgical Oncology 11/22/17 Santiago Gilbert MD [address] [place] [address] Pet Counselor Gastroenterology 11/22/17 Dmitry Sanderson MD [address] [place] [address] Referring Physician Colon and Rectal Surgery 12/03/1805/06 Abbi Ventura MD [address] [place] [address] [place] [address] Medical Oncologist/Die Inspector Medical Oncology 12/03/18 Montse Thompson MD [address] [facility] [address] [place], [place] [address] Consulting Physician Gynecologic Oncology 12/03/18 Lela Hardy MD PhD [address] [place] [address] [place] [address] Radiation Oncologist Radiation Oncology 12/23/18 Kianna Bunch MD PhD [address] [facility] [address] [place] [address] Surgeon Surgical Oncology 12/23/18 09/17/21 documented as of this encounter
--- OUTSIDE RECORDS SUMMARY | 2024-04-24 14:51 | XMS_ITS | Encounter Summary ---
Author Organization [facility] Address [address] [place] [address] Phone Care Team Providers Care Plain Clothes Police Officer Name Role Phone Ravi Smith MD Primary Care Provider [phone] Aft, Kianna Machado MD PhD Unavailable [phone] Santiago Gilbert MD Unavailable [phone] Dmitry Sanderson MD Unavailable [phone] Abbi Ventura MD Unavailable Montse Thompson MD Unavailable [phone] Lela Hardy MD PhD Unavailable Aft, Kianna Machado MD PhD Unavailable [phone] Reason for Visit * Reason Comments OT Treatment OT Progress Note * Consultation (Routine) - Closed Specialty Diagnoses / Procedures Referred By Contac t Referred To Contact Occupational Therapy Diagnoses Malignant neoplasm of descending colon (CMS/HCC) (HCC) Abbi Ventura MD [address] [place] [address] Phone: tel: fax: [facility] Occupational Therapy [address] [facility] 2nd Floor [address] [place] [address] Phone: tel: fax: Referral ID Status Reason Start Date Expiration Date V isits Requested Visits Authorized [id number] Closed Specialty Services Required 12/24/2019 01/22/2021 24 37 Encounter Details Date Type Department Care Team (Late st Contact Info) Description 02/08/2020 1:[address] 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 Falls: no Pain reported: no Processing Clerk present: No. NA Objective: Client participated in [...] PLAN: Continue to work on use of senior production planner sheets. DO / CHECK: Ct used senior production planner pages successfully ~50% of time. Ct realized that she does not check her senior production planner again once she comes home and [...] developed revised plan. Revised Plan: Buy a senior production planner that will help her plan the whole week instead of just one day at a time, in order to balance activities throughout the week better. Use mantra park-it and plan it when she comes home and puts her car in park, she will try to stop and think about what she plans/wants to accomplish when she gets home by looking at her senior production planner before going into the house. Confidence [...] 2 action plans with >50% success using Atya-rdig-lm-check cognitive strategy MET 01/29/20 STG5 Client will [...] deficit documented in this encounter Care Teams Plain Clothes Police Officer Relationship Specialty Start Date End Date Ravi Smith MD PCP - General 11/04/17 09/27/21 Aft, Kianna Machado MD PhD [address] [place] [address] Surgeon Surgical Oncology 11/22/17 Santiago Gilbert MD [address] [place] [address] Escrow Agent Gastroenterology 11/22/17 Dmitry Sanderson MD [address] [place] [address] Referring Physician Colon and Rectal Surgery 12/03/1805/06 Abbi Ventura MD [address] [place] [address] [address] [place] [address] Medical Oncologist/Payroll Processor Medical Oncology 12/03/18 Montse Thompson MD [address] [place] [address] [address] [place] [address] Consulting Physician Gynecologic Oncology 12/03/18 Lela Hardy MD PhD [address] [place] [address] [address] [place] [address] Radiation Oncologist Radiation Oncology 12/23/18 Aft, Kianna Machado MD PhD [address] [place] [address] [address] [place] [address] Surgeon Surgical Oncology 12/23/18 09/17/21 documented as of this encounter
--- OUTSIDE RECORDS SUMMARY | 2024-04-24 14:51 | XMS_ITS | Encounter Summary ---
Author Organization [facility] Address [address] [place] [address] Phone Care Team Providers Care Eligibility Worker Name Role Phone Ravi Smith MD Primary Care Provider [phone] Aft, Kianna Machado MD PhD Unavailable [phone] Suzette Gilbert MD Unavailable [phone] Dmitry Sanderson MD Unavailable [phone] Abbi Ventura MD Unavailable Montse Thompson MD Unavailable [phone] Lela Hardy MD PhD Unavailable [phone] Aft, Kianna Machado MD PhD Unavailable [phone] Reason for Visit * Reason Comments OT Treatment OT Progress Note * Consultation (Routine) - Closed Specialty Diagnoses / Procedures Referred By Contac t Referred To Contact Occupational Therapy Diagnoses 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) Abbi Ventura MD [address] [place] [address] Phone: tel: fax: [facility] Occupational Therapy [address] [facility] 2nd Floor [address] [place] [address] Phone: tel: fax: Referral ID Status Reason Start Date Expiration Date V isits Requested Visits Authorized [id number] Closed Specialty Services Required 12/24/2019 01/22/2021 24 37 Encounter Details Date Type Department Care Team (Late st Contact Info) Description 01/18/2020 1:00 PM CDT Therapy [facility] Occupational Therapy [address] [place] [address] Nat Loyd, OT [address] [place], [place] [id number] Malignant neoplasm of descending colon (CMS/HCC) (Primary [...] on file 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 Falls: no Pain reported: no Plaster Machine Tender present: No. NA Objective: Client participated in [...] photocopy and spiral bind it into a enterprise resource planner that will fit into her purse easily and then she will tryto use that. Plan is to complete task and have enterprise resource planner ready to use within 3 days. [...] 2 action plans with >50% success using Fmuz-nbdb-sa-check cognitive strategy Progressing 01/29/20 STG5 Client will [...] deficit documented in this encounter Care Teams Eligibility Worker Relationship Specialty Start Date End Date Ravi Smith MD PCP - General 11/04/17 09/27/21 Aft, Kianna Machado MD PhD [address] [place] [address] Surgeon Surgical Oncology 11/22/17 Suzette Gilbert MD [address] [place] [address] Superintendent Board Mill Gastroenterology 11/22/17 Dmitry Sanderson MD [address] [place] [address] Referring Physician Colon and Rectal Surgery 12/03/1805/06 Abbi Ventura MD [address] [facility] [address] [place] [address] Medical Oncologist/Waybill Clerk Medical Oncology 12/03/18 Montse Thompson MD [address] [facility] [address] [place] [address] Consulting Physician Gynecologic Oncology 12/03/18 Lela Hardy MD PhD [address] [place] [address] [address] [place] [address] Radiation Oncologist Radiation Oncology 12/23/18 Aft, Kianna Machado MD PhD [address] [facility] [address] [place] [address] Surgeon Surgical Oncology 12/23/18 09/17/21 documented as of this encounter
--- OUTSIDE RECORDS SUMMARY | 2024-04-24 14:51 | XMS_ITS | Encounter Summary ---
Author Organization [facility] Address [address] [place] [address] Phone Care Team Providers Care Biology Tutor Name Role Phone Ravi Smith MD Primary Care Provider [phone] Aft, Kianna Machado MD PhD Unavailable [phone] Santiago Gilbert MD Unavailable [phone] Dmitry Sanderson MD Unavailable [phone] Abbi Ventura MD Unavailable Montse Thompson MD Unavailable [phone] Lela Hardy MD PhD Unavailable [phone] Aft, Kianna Machado MD PhD Unavailable [phone] Encounter Details Date Type Department Care Team (Late st Contact Info) Description 12/25/2019 Telephone [facility] Oncology [address] [place] [address] Fatemeh Zarate, RN Social History Tobacco Use [...] on file 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 12/25/19 Script for lorazepam 0.5mg-2 tablets called into [employer]. Pt to take 1 tablet 30 minutes prior to MRI.DB documented in this encounter Plan of Treatment Not on file documented as of this encounter Visit Diagnoses Not on filedocumented in this encounter Care Teams Biology Tutor Relationship Specialty Start Date End Date Ravi Smith MD PCP - General 11/04/17 09/27/21 Aft, Kianna Machado MD PhD [address] [place] [address] Surgeon Surgical Oncology 11/22/17 Santiago Gilbert MD [address] [place] [address] Hand Washer Gastroenterology 11/22/17 Dmitry Sanderson MD [address] [place], [place] [address] Referring Physician Colon and Rectal Surgery 12/03/1805/06 Abbi Ventura MD [address] [place] [address] [address] [place] [address] Medical Oncologist/Consumer Science Teacher Medical Oncology 12/03/18 Montse Thompson MD [address] [place] [address] [address] [place] [address] Consulting Physician Gynecologic Oncology 12/03/18 Lela Hardy MD PhD [address] [place] [address] [address] [place] [address] Radiation Oncologist Radiation Oncology 12/23/18 Aft, Kianna aMchado MD PhD [address] [place] [address] [address] [place] [address] Surgeon Surgical Oncology 12/23/18 09/17/21 documented as of this encounter
--- OUTSIDE RECORDS SUMMARY | 2024-04-24 14:51 | XMS_ITS | Encounter Summary ---
Author Organization [facility] Address [address] [place] [address] Phone Care Team Providers Care Paper Ruler Name Role Phone Ravi Smith MD Primary Care Provider [phone] Aft, Kianna Machado MD PhD Unavailable [phone] Santiago Gilbert MD Unavailable [phone] Dmitry Sanderson MD Unavailable [phone] Abbi Ventura MD Unavailable Montse Thompson MD Unavailable [phone] Lela Hardy MD PhD Unavailable [phone] Aft, Kianna Machado MD PhD Unavailable [phone] Reason for Visit * Reason Comments OT Progress Note OT Treatment * Consultation (Routine) - Closed Specialty Diagnoses / Procedures Referred By Contac t Referred To Contact Occupational Therapy Diagnoses 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 It is working very well. Falls: no Pain reported: no Director Channel present: No. NA Objective: Client participated in [...] errands thoroughly each day. PLAN: Buy a eap consultant that will help her plan the whole week instead of just one day at a time, in order to balance activities throughout the week better. Use mantra park-it and plan it when she comes home and puts her car in park, she will try to stop and think about what she plans/wants to accomplish when she gets home by looking at her eap consultant before going into the house. DO / CHECK: Purchased another eap consultant and has used it daily since purchase (6 days ago). park-it and plan-it is being practiced. Notices when she reviews info in her eap consultant and to do list before going into the house, that her thoughts are more organized and gathered. Ct is also taking shopping list and eap consultant with her into the store. She pulled [...] 2 action plans with >50% success using Ellz-rvgy-xk-check cognitive strategy MET 01/29/20 STG5 Client will [...] colon documented in this encounter Care Teams Paper Ruler Relationship Specialty Start Date End Date Ravi Smith MD PCP - General 11/04/17 09/27/21 Aft, Kianna Machado MD PhD [address] [place] [address] Surgeon Surgical Oncology 11/22/17 Santiago Gilbert MD [address] [place] [address] Product Safety And Standards Engineer Gastroenterology 11/22/17 Dmitry Sanderson MD [address] [place] [address] Referring Physician Colon and Rectal Surgery 12/03/1805/06 Abbi Ventura MD [address] [place] [address] [address] [place] [address] Medical Oncologist/Brush Clearing Laborer Medical Oncology 12/03/18 Montse Thompson MD [address] [facility] [address] [place] [address] Consulting Physician Gynecologic Oncology 12/03/18 Lela Hardy MD PhD [address] [place] [address] [address] [place] [address] Radiation Oncologist Radiation Oncology 12/23/18 Aft, Kianna Machado MD PhD [address] [place] [address] [address] [place] [address] Surgeon Surgical Oncology 12/23/18 09/17/21 documented as of this encounter
--- OUTSIDE RECORDS SUMMARY | 2024-04-24 14:51 | XMS_ITS | Encounter Summary ---
Author Organization [facility] Address [address] [place] [address] Phone Care Team Providers Care Trimmer Machine Name Role Phone Ravi Smith MD Primary Care Provider [phone] Aft, Kianna Machado MD PhD Unavailable [phone] Santiago Gilbert MD Unavailable [phone] Dmitry Sanderson MD Unavailable [phone] Abbi Ventura MD Unavailable Montse Thompson MD Unavailable [phone] Lela Hardy MD PhD Unavailable [phone] Aft, Kianna Machado MD PhD Unavailable [phone] Reason for Visit * Reason Onset Date Comments blood work request 12/24/2019 Encounter Details Date Type Department Care Team (Late st Contact Info) Description 12/24/2019 Telephone [facility] Oncology [address] [place] [address] Abbi Ventura MD [address] [facility] [address] [place] [address] blood work request Social History [...] on file 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 eGFR NON-AFR. UGANDAN 36(L) > OR = 60 mL/min/1. 73m2 [...] ORDERABLES Final Resul t [facility] [address] [address] [place] [address] documented in this encounter Visit Diagnoses Diagnosis Elevated serum creatinine- Primary Other nonspecific findings on examination of blood Malignant neoplasm of upper-inner quadrant of left breast in female, estrogen receptor negative (HCC) documented in this encounter Care Teams Trimmer Machine Relationship Specialty Start Date End Date Ravi Smith MD PCP - General 11/04/17 09/27/21 AftKianna MD PhD [address] [place] [address] Surgeon Surgical Oncology 11/22/17 Santiago Gilbert MD [address] [place] [address] Chemical Processor Gastroenterology 11/22/17 Dmitry Sanderson MD [address] [place] [address] Referring Physician Colon and Rectal Surgery 12/03/1805/06 Abbi Ventura MD [address] [place] [address] Medical Oncologist/Mission Planner Medical Oncology 12/03/18 Montse Thompson MD [address] [place] [address] Consulting Physician Gynecologic Oncology 12/03/18 Lela Hardy MD PhD [address] [place] [address] Radiation Oncologist Radiation Oncology 12/23/18 Aft, Kianna Machado MD PhD [address] [facility] [address] [place], [place] [address] Surgeon Surgical Oncology 12/23/18 09/17/21 documented as of this encounter
--- OUTSIDE RECORDS SUMMARY | 2024-04-24 14:51 | XMS_ITS | Encounter Summary ---
Author Organization [facility] Address [address] [place] [address] Phone Care Team Providers Care Tunnel Inspector Name Role Phone Ravi Smith MD Primary Care Provider [phone] Aft, Kianna Machado MD PhD Unavailable [phone] Santiago Gilbert MD Unavailable [phone] Dmitry Sanderson MD Unavailable [phone] Abbi Ventura MD Unavailable Montse Thompson MD Unavailable [phone] Lela Hardy MD PhD Unavailable [phone] Aft, Kianna Machado MD PhD Unavailable [phone] Reason for Visit * Reason Comments OT Progress Note OT Treatment * Consultation (Routine) - Closed Specialty Diagnoses / Procedures Referred By Contac t Referred To Contact Occupational Therapy Diagnoses 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) Abbi Ventura MD [address] [place] [address] Phone: tel: fax: [facility] Occupational Therapy [address] [facility] 2nd Floor [address] [place] [address] Phone: tel: fax: Referral ID Status Reason Start Date Expiration Date V isits Requested Visits Authorized [id number] Closed Specialty Services Required 12/24/2019 01/22/2021 24 37 Encounter Details Date Type Department Care Team (Late st Contact Info) Description 03/28/2020 1:00 PM BENCH SCIENTIST Therapy [facility] Occupational Therapy [address] [place] [address] Nat Loyd, OT [address] [place], [place] [phone] Malignant neoplasm of descending colon (CMS/HCC) (Primary [...] on file 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 Falls: no Pain reported: no Filler Feeder present: No. NA Objective: Client participated in [...] 2 action plans with >50% success using Qqnu-cqqn-mh-check cognitive strategy MET 01/29/20 STG5 Client will [...] End Time: 1400 Signature: ANNELIESE Sosa, OTR/L H SCIENTIST 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)- Primary Malignant neoplasm of descending colon Executive function deficit documented in this encounter Care Teams Tunnel Inspector Relationship Specialty Start Date End Date Ravi Smith MD PCP - General 11/04/17 09/27/21 Aft, Kianna Machado MD PhD [address] [place] [address] Surgeon Surgical Oncology 11/22/17 Santiago Gilbert MD [address] [place] [address] Cannon Pinion Adjuster Gastroenterology 11/22/17 Dmitry Sanderson MD [address] [place] [address] Referring Physician Colon and Rectal Surgery 12/03/1805/06 Abbi Ventura MD [address] [facility] [address] [place] [address] Medical Oncologist/Nuclear Auxiliary Operator Medical Oncology 12/03/18 Montse Thompson MD [address] [facility] [address] [place] [address] Consulting Physician Gynecologic Oncology 12/03/18 Lela Hardy MD PhD [address] [facility] [address] [place] [address] Radiation Oncologist Radiation Oncology 12/23/18 Aft, Kianna Machado MD PhD [address] [facility] [address] [place] [address] Surgeon Surgical Oncology 12/23/18 09/17/21 documented as of this encounter
--- OUTSIDE RECORDS SUMMARY | 2024-04-24 14:51 | XMS_ITS | Encounter Summary ---
Author Organization [facility] Address [address] [place] [address] Phone Care Team Providers Care Assembly Worker Name Role Phone Ravi Smith MD Primary Care Provider [phone] Aft, Kianna Machado MD PhD Unavailable [phone] Santiago Gilbert MD Unavailable [phone] Dmitry Sanderson MD Unavailable [phone] Abbi Ventura MD Unavailable Montse Thompson MD Unavailable [phone] Lela Hardy MD PhD Unavailable [phone] Aft, Kianna Machado MD PhD Unavailable [phone] Reason for Visit * Reason Comments OT Treatment OT Progress Note * Consultation (Routine) - Closed Specialty Diagnoses / Procedures Referred By Contac t Referred To Contact Occupational Therapy Diagnoses Malignant neoplasm of descending colon (CMS/HCC) (HCC) Abbi Ventura MD [address] [place] [address] Phone: tel: fax: [facility] Occupational Therapy [address] [facility] 2nd Floor [address] [place] [address] Phone: tel: fax: Referral ID Status Reason Start Date Expiration Date V isits Requested Visits Authorized [id number] Closed Specialty Services Required 12/24/2019 01/22/2021 24 37 Encounter Details Date Type Department Care Team (Late st Contact Info) Description 01/12/2020 2:00 PM CDT Therapy [facility] Occupational Therapy [address] [place] [address] Nat Loyd, OT [address] [place], [place] [phone] Malignant neoplasm of descending colon (CMS/HCC) (Primary [...] file 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 Falls: no Pain reported: no Bean Viner present: No (NA) Objective: Client participated in [...] utilized during OT sessions and will include Lfjh-Cgni-Wa-Checkaction plan use. Ct verbalized understanding. ACTION PLAN / Home activity program: OT provided additional education and guided discussion regarding use of COOP/ Ioot-Mfpi-Lc-Check strategy to develop an action plan to achieve a functional goal of client's choice. OT facilitated client's process to identify an activity goal and develop the following action plan. Plan # 1 Cognitive Skill Category: planning, attention/memory Timeframe: One Week Activity GOAL: To complete daily errands thoroughly Action PLAN: Use [employer] sticky note to write errand list/stops and [...] 2 action plans with >50% success using Rarx-pokm-qr-check cognitive strategy Progressing 01/29/20 STG5 Client will [...] deficit documented in this encounter Care Teams Assembly Worker Relationship Specialty Start Date End Date Ravi Smith MD PCP - General 11/04/17 09/27/21 Aft, Kianna Machado MD PhD [address] [place] [address] Surgeon Surgical Oncology 11/22/17 Santiago Gilbert MD [address] [place] [address] Space Officer Gastroenterology 11/22/17 Dmitry Sanderson MD [address] [place], [place] [address] Referring Physician Colon and Rectal Surgery 12/03/1805/06 Abbi Ventura MD [address] [facility] [address] [place] [address] Medical Oncologist/Train Operations Supervisor Medical Oncology 12/03/18 Montse Thompson MD [address] [facility] [address] [place] [address] Consulting Physician Gynecologic Oncology 12/03/18 Lela Hardy MD PhD [address] [facility] [address] [place] [address] Radiation Oncologist Radiation Oncology 12/23/18 Aft, Kianna Machado MD PhD [address] [facility] [address] [place], [place] [address] Surgeon Surgical Oncology 12/23/18 09/17/21 documented as of this encounter
--- OUTSIDE RECORDS SUMMARY | 2024-04-24 14:51 | XMS_ITS | Encounter Summary ---
Author Organization [facility] Address [address] [place] [address] Phone Care Team Providers Care Event Planning Manager Name Role Phone Ravi Smith MD Primary Care Provider [phone] Aft, Kianna Machado MD PhD Unavailable [phone] Santiago Gilbert MD Unavailable [phone] Dmitry Sanderson MD Unavailable [phone] Abbi Ventura MD Unavailable Montse Thompson MD Unavailable [phone] Lela Haryd MD PhD Unavailable [phone] Aft, Kianna Machado MD PhD Unavailable [phone] Encounter Details Date Type Department Care Team (Late st Contact Info) Description 01/07/2020 Telephone [facility] Oncology [address] [place] [address] Mag Duff RMA Social History Tobacco Use [...] on file 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 Pt states she will have blood work drawn, probably on 12/28/2019, at [facility]. ----- Message ----- From: Fatemeh Zarate RN Sent: 12/24/2019 8:46 AM CDT To: Fatemeh Zarate RN Pt creatinine level was elevated [...] filedocumented in this encounter Care Teams Event Planning Manager Relationship Specialty Start Date End Date Ravi Smith MD PCP - General 11/04/17 09/27/21 Kianna Bunch MD PhD [address] [place] [address] Surgeon Surgical Oncology 11/22/17 Santiago Gilbert MD [address] [place] [address] Sap Portal Consultant Gastroenterology 11/22/17 Dmitry Sanderson MD [address] [place] [address] Referring Physician Colon and Rectal Surgery 12/03/1805/06 Abbi Ventura MD [address] [place] [address] [address] [place] [address] Medical Oncologist/General Partner Medical Oncology 12/03/18 Montse Thompson MD [address] [place] [address] [address] [place] [address] Consulting Physician Gynecologic Oncology 12/03/18 Lela Hardy MD PhD [address] [place] [address] [address] [place] [address] Radiation Oncologist Radiation Oncology 12/23/18 Kianna Bunch MD PhD [address] [place] [address] [address] [place] [address] Surgeon Surgical Oncology 12/23/18 09/17/21 documented as of this encounter
--- OUTSIDE RECORDS SUMMARY | 2024-04-24 14:51 | XMS_ITS | Encounter Summary ---
Author Organization [facility] Address [address] [place] [address] Phone Care Team Providers Care Senior Editor Name Role Phone Ravi Smith MD Primary Care Provider [phone] Aft, Kianna Machado MD PhD Unavailable [phone] Santiago Gilbert MD Unavailable [phone] Dmitry Sanderson MD Unavailable [phone] Abbi Ventura MD Unavailable Montse Thompson MD Unavailable [phone] Lela Hardy MD PhD Unavailable [phone] Aft, Kianna aMchado MD PhD Unavailable [phone] Encounter Details Date Type Department Care Team (Late st Contact Info) Description 12/16/2019 Orders Only [facility] Pulmonary [address] [facility] Advanced Medicine 8th [place] [address] [place] [address] Cristobal Dong MD [address] [place] [address] Social History Tobacco Use Types [...] on file 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 Gender Identity Not on file Sexual [...] documented as of this encounter Care Teams Senior Editor Relationship Specialty Start Date End Date Ravi Smith MD PCP - General 11/04/17 09/27/21 Aft, Kianna Machado MD PhD [address] [place] [address] Surgeon Surgical Oncology 11/22/17 Santiago Gilbert MD [address] [place] [address] Hazardous Material Technician Gastroenterology 11/22/17 Dmitry Sadnerson MD [address] [place] [address] Referring Physician Colon and Rectal Surgery 12/03/1805/06 Abbi Ventura MD [address] [facility] [address] [place], [place] [address] Medical Oncologist/Geophysicist Medical Oncology 12/03/18 Montse Thompson MD [address] [facility] [address] [place], [place] [address] Consulting Physician Gynecologic Oncology 12/03/18 Lela Hardy MD PhD [address] [facility] [address] [place] [address] Radiation Oncologist Radiation Oncology 12/23/18 Aft, Kianna Machado MD PhD [address] [facility] [address] [place], [place] [address] Surgeon Surgical Oncology 12/23/18 09/17/21 documented as of this encounter
--- OUTSIDE RECORDS SUMMARY | 2024-04-24 14:51 | XMS_ITS | Encounter Summary ---
Author Organization [facility] Address [address] [place] [address] Phone Care Team Providers Care Acoustic Sensor Operator Name Role Phone Ravi Smith MD Primary Care Provider [phone] Aft, Kianna Machado MD PhD Unavailable [phone] Santiago Gilbert MD Unavailable [phone] Dmitry Sanderson MD Unavailable [phone] Abbi Ventura MD Unavailable Montse Thompson MD Unavailable [phone] Lela Hardy MD PhD Unavailable [phone] Aft, Kianna Machado MD PhD Unavailable [phone] Encounter Details Date Type Department Care Team (Late st Contact Info) Description 01/04/2020 Orders Only [facility] Pulmonary [address] [facility] Advanced Medicine 8th [place] [address] [place] [address] Cristobal Dong MD [address] [place] [address] Social History Tobacco Use Types [...] on file 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 Gender Identity Not on file Sexual Orientation [...] documented as of this encounter Care Teams Acoustic Sensor Operator Relationship Specialty Start Date End Date Ravi Smith MD PCP - General 11/04/17 09/27/21 Aft, Kianna Machado MD PhD [address] [place] [address] Surgeon Surgical Oncology 11/22/17 Santiago Gilbert MD [address] [place] [address] Blanker Operator Gastroenterology 11/22/17 Dmitry Sanderson MD [address] [place] [address] Referring Physician Colon and Rectal Surgery 12/03/1805/06 Abbi Ventura MD [address] [facility] [address] [place], [place] [id number] Medical Oncologist/Enterprise Resource Analyst Medical Oncology 12/03/18 Montse Thompson MD [address] [facility] [address] [place] [address] Consulting Physician Gynecologic Oncology 12/03/18 Lela Hardy MD PhD [address] [facility] [address] [place] [address] Radiation Oncologist Radiation Oncology 12/23/18 Aft, Kianna Machado MD PhD [address] [facility] [address] [place], [place] [address] Surgeon Surgical Oncology 12/23/18 09/17/21 documented as of this encounter
--- OUTSIDE RECORDS SUMMARY | 2024-04-24 14:51 | XMS_ITS | Encounter Summary ---
Author Organization [facility] Address [address] [place] [address] Phone Care Team Providers Care Concessionist Name Role Phone Ravi Smith MD Primary Care Provider [phone] Aft, Kianna Machado MD PhD Unavailable [phone] Suzette Gilbert MD Unavailable [phone] Dmitry Sanderson MD Unavailable [phone] Abbi Ventura MD Unavailable Montse Thompson MD Unavailable [phone] Lela Hardy MD PhD Unavailable [phone] Aft, Kianna Machado MD PhD Unavailable [phone] Reason for Visit * Reason Comments OT Progress Note OT Treatment * Consultation (Routine) - Closed Specialty Diagnoses / Procedures Referred By Contac t Referred To Contact Occupational Therapy Diagnoses 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) Abbi Ventura MD [address] [place] [address] Phone: tel: fax: [facility] Occupational Therapy [address] [facility] 2nd [address] [place] [address] Phone: tel: fax: Referral ID Status Reason Start Date Expiration Date V isits Requested Visits Authorized [id number] Closed Specialty Services Required 12/24/2019 01/22/2021 24 37 Encounter Details Date Type Department Care Team (Late st Contact Info) Description 02/22/2020 1:00 PM CDT Therapy [facility] Occupational Therapy [address] [place] [address] Nat Loyd, OT [address] [place], [place] [id number] Malignant neoplasm of descending colon (CMS/HCC) (Primary [...] on file 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 Falls: no Pain reported: no Debt And Budget Counselor present: No. NA Objective: Client participated in [...] and guided discussion regarding use of COOP/ Ntxu-Fknk-Uf-Checkstrategy for current goals and action plans. OT [...] 2 action plans with >50% success using Ohpp-oamc-we-check cognitive strategy MET 01/29/20 STG5 Client will [...] deficit documented in this encounter Care Teams Concessionist Relationship Specialty Start Date End Date Ravi Smith MD PCP - General 11/04/17 09/27/21 Aft, Kianna Machado MD PhD [address] [place] [address] Surgeon Surgical Oncology 11/22/17 Suzette Gilbert MD [address] [place] [address] Chairman Gastroenterology 11/22/17 Dmitry Sanderson MD [address] [place] [address] Referring Physician Colon and Rectal Surgery 12/03/1805/06 Abbi Ventura MD [address] [place] [address] [address] [place] [address] Medical Oncologist/Validation Intern Medical Oncology 12/03/18 Montse Thompson MD [address] [place] [address] [address] [place] [address] Consulting Physician Gynecologic Oncology 12/03/18 Lela Hardy MD PhD [address] [place] [address] [address] [place] [address] Radiation Oncologist Radiation Oncology 12/23/18 Aft, Kianna Machado MD PhD [address] [place] [address] [address] [place] [address] Surgeon Surgical Oncology 12/23/18 09/17/21 documented as of this encounter
--- OUTSIDE RECORDS SUMMARY | 2024-04-24 14:51 | XMS_ITS | Encounter Summary ---
Author Organization [facility] Address [address] [place] [address] Phone Care Team Providers Care Correctional Casework Specialist Name Role Phone Ravi Smith MD Primary Care Provider [phone] Aft, Kianna Machado MD PhD Unavailable [phone] Santiago Gilbert MD Unavailable [phone] Dmitry Sanderson MD Unavailable [phone] Abbi Ventura MD Unavailable Montse Thompson MD Unavailable [phone] Lela Hardy MD PhD Unavailable [phone] Aft, Kianna Machado MD PhD Unavailable [phone] Encounter Details Date Type Department Care Team (Late st Contact Info) Description 01/12/2020 Telephone [facility] Oncology [address] [place] [address] Sue Valente CNA Social History Tobacco Use [...] on filedocumented in this encounter Care Teams Correctional Casework Specialist Relationship Specialty Start Date End Date Ravi Smith MD PCP - General 11/04/17 09/27/21 Aft, Kianna Machado MD PhD [address] [place] [address] Surgeon Surgical Oncology 11/22/17 Santiago Gilbert MD [address] [place] [address] Remelt Operator Gastroenterology 11/22/17 Dmitry Sanderson MD [address] [place] [address] Referring Physician Colon and Rectal Surgery 12/03/1805/06 Abbi Ventura MD [address] [place] [address] Medical Oncologist/Sales Program Coordinator Medical Oncology 12/03/18 Montse Thompson MD [address] [place] [address] Consulting Physician Gynecologic Oncology 12/03/18 Lela Hardy MD PhD [address] [facility] [facility] [address] [place] [address] Radiation Oncologist Radiation Oncology 12/23/18 Aft, Kianna Machado MD PhD [address] [facility] [address] [place] [address] Surgeon Surgical Oncology 12/23/18 09/17/21 documented as of this encounter
--- OUTSIDE RECORDS SUMMARY | 2024-04-24 14:51 | XMS_ITS | Encounter Summary ---
Author Organization [facility] Address [address] [place] [address] Phone Care Team Providers Care Granite Block Paver Name Role Phone Ravi Smith MD Primary Care Provider [phone] Aft, Kianna Machado MD PhD Unavailable [phone] Santiago Gilbert MD Unavailable [phone] Dmitry Sanderson MD Unavailable [phone] Abbi Ventura MD Unavailable Montse Thompson MD Unavailable [phone] Lela Hardy MD PhD Unavailable Aft, Kianna Machado MD PhD Unavailable [phone] Encounter Details Date Type Department Care Team (Late st Contact Info) Description 12/23/2019 2:30 PM CDT Lab [facility] Oncology [address] [place] [address] Malignant neoplasm of descending colon (CMS/HCC) Social [...] on file 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 Current Interpretive Data was last revised on 2017. Imm gran pct 0.2 % [facility] Comment: Interpretive Data Percent cell count reference ranges are not reported, since discordance with absolute values may lead to misinterpretation of CBC data. Current Interpretive Data was last revised on 2017. Lymphocyte pct 20.9 % [facility] Comment: Interpretive Data Percent cell count reference ranges are not reported, since discordance with absolute values may lead to misinterpretation of CBC data. Current Interpretive Data was last revised on 2017. Monocyte pct 7.1 % [facility] Comment: Interpretive Data Percent cell count reference ranges are not reported, since discordance with absolute values may lead to misinterpretation of CBC data. Current Interpretive Data was last revised on 2017. Eosinophil pct 3.7 % [facility] Comment: Interpretive Data Percent cell count reference ranges are not reported, since discordance with absolute values may lead to misinterpretation of CBC data. Current Interpretive Data was last revised on 2017. Basophil pct 0.9 % [facility] Comment: Interpretive Data Percent cell count reference ranges are not reported, since discordance with absolute values may lead to misinterpretation of CBC data. Current Interpretive Data was last revised on 2017. Blood specimen (specimen) 12/23/2019 2:47 PM CDT 12/23/2019 2:54 PM CDT us Abbi Ventura MD LAB BLOOD ORDERABLES Final Resul t [facility] Department [place] [address] * (ABNORMAL) CBC with auto differential (12/23/2019 2:47 PM CDT) WBC 8.1 3.8 - 9.9 K/cumm [facility] Hgb 11.8(L) 11.9 - 15.5 g/dL [facility] Hct 35.9 35.6 - 45.5 % [facility] Plt 175 150 - 400 K/cumm [facility] MPV 10.1 9.1 - 12.3 fL [facility] RBC 3.83(L) 3.90 - 5.20 M/cumm [facility] MCV 93.7 81.3 - 96.4 fL [facility] MCH 30.8 27.1 - 33.3 pg [facility] MCHC 32.9 32.3 - 35.7 g/dL [facility] RDW CV 13.5 11.1 - 14.9 % [facility] RDW SD 46.6 35.7 - 48.1 fL [facility] NRBC abs 0.00 0.00 - 0.01 K/cumm [facility] Blood specimen (specimen) 12/23/2019 2:47 PM CDT 12/23/2019 2:54 PM CDT Abbi Ventura MD LAB BLOOD ORDERABLES Final Resul t [facility] Department [place] [address] * (ABNORMAL) Comprehensive metabolic panel (12/23/2019 2:47 PM CDT) Sodium 142 135 - 145 mmol/L [facility] Potassium, pl 4.4 3.3 - 4.9 mmol/L [facility] Chloride 103 97 - 110 mmol/L [facility] CO2 28 22 - 32 mmol/L [facility] Anion gap 11 2 - 15 mmol/L [facility] BUN 21 8 - 25 mg/dL [facility] Creatinine 1.46(H) 0.60 - 1.10 mg/dL [facility] Glucose 95 70 - 199 mg/dL [facility] Comment: Interpretive Data Fasting glucose >/= [...] 2017. Calcium 9.9 8.5 - 10.3 mg/dL [facility] Bilirubin, total 0.5 0.1 - 1.2 mg/dL [facility] Protein, pl 7.3 6.5 - 8.5 g/dL [facility] Albumin 4.4 3.5 - 5.0 g/dL [facility] Alk phos 85 40 - 130 Units/L [facility] ALT 13 7 - 45 Units/L [facility] AST 25 10 - 45 Units/L [facility] Blood specimen (specimen) 12/23/2019 2:47 PM CDT 12/23/2019 2:54 PM CDT Narrative [facility] - 12/23/2019 7:14 PM CDT stat stat Abbi Ventura MD LAB BLOOD ORDERABLES Final Resul t Performing Organization Address [facility] de Phone Number [facility] Department [place] [address] * CEA (12/23/2019 2:47 PM CDT) CEA 1.9 <=5.0 ng/mL [facility] Comment: Interpretative Data: Reference Range: Non-Smokers: 0.0 - 5.0 ng/mL Smokers: 0.0 ? 6.5 ng/mL This test was developed and its performance characteristics determined by the [facility] in a manner consistent with CLIA requirements. This test has not been cleared or approved by the U.S. Food and Drug Administration. Current interpretive data was last revised 2018. 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) Malignant neoplasm of descending colon documented in this encounter Orders Appointment Requests Count Last Ordered Date Fi rst Ordered Date ONCBCN LAB APPOINTMENT 1 12/23/2019 documented in this encounter Care Teams Granite Block Paver Relationship Specialty Start Date End Date Ravi Smith MD PCP - General 11/04/17 09/27/21 Aft, Kianna Machado MD PhD [address] [place] [address] Surgeon Surgical Oncology 11/22/17 Santiago Gilbert MD [address] [place] [address] Dictating Transcribing Machine Servicer Gastroenterology 11/22/17 Dmitry Sanderson MD [address] [place] [address] Referring Physician Colon and Rectal Surgery 12/03/1805/06 Abbi Ventura MD [facility] [address] [place] [address] Medical Oncologist/Matcher Operator Medical Oncology 12/03/18 Montse Thompson MD [address] [place] [address] [address] [place] [address] Consulting Physician Gynecologic Oncology 12/03/18 Lela Hardy MD PhD [address] [place] [address] [address] [place] [address] Radiation Oncologist Radiation Oncology 12/23/18 Aft, Kianna Machado MD PhD [facility] [address] [place] [address] Surgeon Surgical Oncology 12/23/18 09/17/21 documented as of this encounter
--- OUTSIDE RECORDS SUMMARY | 2024-04-24 14:51 | XMS_ITS | Encounter Summary ---
Author Organization [facility] Healthcare Address [address] [place] [address] Care Team Providers Care Weeder Thinner Name Role Phone Ravi Smith MD Primary Care Provider [phone] Aft, Kianna Machado MD PhD Unavailable [phone] Santiago Gilbert MD Unavailable [phone] Dmitry Sanderson MD Unavailable [phone] Abbi Ventura MD Unavailable Montse Thompson MD Unavailable [phone] Lela Hardy MD PhD Unavailable [phone] Aft, Kianna Machado MD PhD Unavailable [phone] Encounter Details Date Type Department Care Team (Late st Contact Info) Description 04/05/2020 Telephone [facility] Radiation Oncology at [facility] [address] [place] [address] Diana Crisostomo MA Social History Tobacco Use [...] file 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 Gender Identity Not on file Sexual Orientation Not on file documented as of this encounter Miscellaneous Notes * Telephone Encounter - Diana Crisostomo MA - 04/05/2020 1:42 PM CST I spoke with pt and she agreed to follow-up appt in radiation oncology 06/2020 BANDING MACHINE OFFBEARER documented in this encounter Plan of Treatment Not on file documented as of this encounter Visit Diagnoses Not on filedocumented in this encounter Care Teams Weeder Thinner Relationship Specialty Start Date End Date Ravi Smith MD PCP - General 11/04/17 09/27/21 Aft, Kianna Machado MD PhD [address] [place] [address] Surgeon Surgical Oncology 11/22/17 Santiago Gilbert MD [address] [place] [address] Design Assembler Gastroenterology 11/22/17 Dmitry Sanderson MD [address] [place] [address] Referring Physician Colon and Rectal Surgery 12/03/1805/06 Abbi Ventura MD [address] [place] [address] Medical Oncologist/X Ray Service Technician Medical Oncology 12/03/18 Montse Thompson MD [address] [place] [address] Consulting Physician Gynecologic Oncology 12/03/18 Lela Hardy MD PhD [address] [facility] [address] [place] [address] Radiation Oncologist Radiation Oncology 12/23/18 Aft, Kianna Machado MD PhD [address] [facility] [address] [place] [address] Surgeon Surgical Oncology 12/23/18 09/17/21 documented as of this encounter
--- OUTSIDE RECORDS SUMMARY | 2024-04-24 14:51 | XMS_ITS | Encounter Summary ---
Author Organization [facility] Address [address] [place] [address] Phone Care Team Providers Care Gear Tester Name Role Phone Ravi Smith MD Primary Care Provider [phone] Aft, Kianna Machado MD PhD Unavailable [phone] Suzette Gilbert MD Unavailable [phone] Dmitry Sanderson MD Unavailable [phone] Abbi Ventura MD Unavailable Montse Thompson MD Unavailable [phone] Lela Hardy MD PhD Unavailable [phone] Aft, Kianna Machado MD PhD Unavailable [phone] Reason for Visit * Reason Comments OT Treatment * Consultation (Routine) - Closed Specialty Diagnoses / Procedures Referred By Contac t Referred To Contact Occupational Therapy Diagnoses 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) Abbi Ventura MD [address] [place] [address] Phone: tel: fax: [facility] Occupational Therapy [address] [facility] 2nd [address] [place] [address] Phone: tel: fax: Referral ID Status Reason Start Date Expiration Date V isits Requested Visits Authorized [id number] Closed Specialty Services Required 12/24/2019 01/22/2021 24 37 Encounter Details Date Type Department Care Team (Late st Contact Info) Description 03/14/2020 1:00 PM RECORD PRESS SUPERVISOR Therapy [facility] Occupational Therapy [address] [place] [address] Nat Loyd, OT [address] [place] [address] Malignant neoplasm of descending colon [...] on file 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 Falls: no Pain reported: no Shipfitter Apprentice present: No. 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)- Primary Malignant neoplasm of descending colon Executive function deficit documented in this encounter Care Teams Gear Tester Relationship Specialty Start Date End Date Ravi Smith MD PCP - General 11/04/17 09/27/21 Aft, Kianna Machado MD PhD [address] [place] [address] Surgeon Surgical Oncology 11/22/17 Suzette Gilbert MD [address] [place] [address] Mine Boss Gastroenterology 11/22/17 Dmitry Sanderson MD [address] [place] [address] Referring Physician Colon and Rectal Surgery 12/03/1805/06 Abbi Ventura MD [address] [place] [address] [address] [place] [address] Medical Oncologist/Quill Worker Medical Oncology 12/03/18 Montse Thompson MD [address] [facility] [address] [place], [place] [address] Consulting Physician Gynecologic Oncology 12/03/18 Lela Hardy MD PhD [address] [facility] [address] [place] [address] Radiation Oncologist Radiation Oncology 12/23/18 Aft, Kianna Machado MD PhD [address] [facility] [address] [place] [address] Surgeon Surgical Oncology 12/23/18 09/17/21 documented as of this encounter
--- OUTSIDE RECORDS SUMMARY | 2024-04-24 14:51 | XMS_ITS | Encounter Summary ---
Author Organization [facility] Address [address] [place] [address] Phone Care Team Providers Care Youth Associate Name Role Phone Ravi Smith MD Primary Care Provider [phone] Aft, Kianna Machado MD PhD Unavailable [phone] Santiago Gilbert MD Unavailable [phone] Dmitry Sanderson MD Unavailable [phone] Abbi Ventura MD Unavailable Montse Thompson MD Unavailable [phone] Lela Hardy MD PhD Unavailable [phone] Aft, Kianna Machado MD PhD Unavailable [phone] Encounter Details Date Type Department Care Team (Late st Contact Info) Description 12/25/2019 Orders Only [facility] Oncology [address] [place] [address] Fatemeh Zarate, RN Social History Tobacco Use [...] file 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 Gender Identity Not on file [...] on filedocumented in this encounter Care Teams Youth Associate Relationship Specialty Start Date End Date Ravi Smith MD PCP - General 11/04/17 09/27/21 Aft, Kianna Machado MD PhD [address] [place] [address] Surgeon Surgical Oncology 11/22/17 Santiago Gilbert MD [address] [place] [address] Home Care Aide Gastroenterology 11/22/17 Dmitry Sanderson MD [address] [place] [address] Referring Physician Colon and Rectal Surgery 12/03/1805/06 Abbi Ventura MD [address] [facility] [address] [place] [address] Medical Oncologist/String Cutter Medical Oncology 12/03/18 Montse Thompson MD [address] [facility] [address] [place] [address] Consulting Physician Gynecologic Oncology 12/03/18 Lela Hardy MD PhD [address] [facility] [address] [place] [address] Radiation Oncologist Radiation Oncology 12/23/18 Aft, Kianna Machado MD PhD [address] [facility] [address] [place] [address] Surgeon Surgical Oncology 12/23/18 09/17/21 documented as of this encounter
--- OUTSIDE RECORDS SUMMARY | 2024-04-24 14:51 | XMS_ITS | Encounter Summary ---
Author Organization [facility] Healthcare Address [address] [place] [address] Care Team Providers Care Corncob Pipe Supervisor Name Role Phone Ravi Smith MD Primary Care Provider [phone] Aft, Kianna Machado MD PhD Unavailable [phone] Santiago Gilbert MD Unavailable [phone] Dmitry Sanderson MD Unavailable [phone] Abbi Ventura MD Unavailable Montse Thompson MD Unavailable [phone] Lela Hardy MD PhD Unavailable [phone] Aft, Kianna Machado MD PhD Unavailable [phone] Reason for Referral * Diagnostic Imaging (Routine) - Closed Specialty Diagnoses / Procedures Referred By iVjaya simpson Referred To Contact Radiology Diagnoses History of breast cancer Personal history of irradiation Disequilibrium Procedures MRI Brain W WO Contrast Zulema Dior NP [address] [facility] # LL LL [address] [place] [address] Phone: tel: fax: [facility] Referral ID Status Reason Start Date Expiration Date Visits Re quested Visits Authorized [id number] Closed 03/23/2020 04/22/2021 1 1 TOE CEMENTER Reason for Visit * Diagnostic Imaging (Routine) - Closed Specialty Diagnoses / Procedures Referred By Contac t Referred To Contact Radiology Diagnoses History of breast cancer Personal history of irradiation Disequilibrium Procedures MRI Brain W WO Contrast Zulema Dior, KAM [address] [facility] [address] LL [address] [address] Phone: tel: fax: [facility] Referral ID Status Reason Start Date Expiration Date Visits Re quested Visits Authorized [id number] Closed 03/23/2020 04/22/2021 1 1 Encounter Details Date Type Department Care Team (Late st Contact Info) Description 03/30/2020 5:45 PM BOX TOE CEMENTER - 03/30/2020 11:59 PM BOX TOE CEMENTER Hospital Encounter [facility] Radiology at [facility] [address] [place], [place] [id number] Unknown, Lela Adrian MD PhD [address] [facility] [address] LL [address] [address] Zulema Dior NP [address] [facility] [address] LL [address] [address] History of breast cancer; Personal history of [...] on file Legal Sex Female 1:06 AM BOX TOE CEMENTER Gender Identity Not on file Sexual [...] Read Routine (OP Routine) 03/30/2020 6:28 PM BOX TOE CEMENTER History of breast cancer Personal history of irradiation Disequilibrium documented in this encounter Results * MRI Brain W WO Contrast (03/30/2020 6:28 PM BOX TOE CEMENTER) Anatomical Region Laterality Modality Head and Neck N/A Magnetic Resonan ce 04/01/2020 11:4 3 AM BOX TOE CEMENTER Impressions 04/01/2020 12:42 PM BOX TOE CEMENTER No evidence of metastatic disease. Dictated by: Ollie Wood M.D. The radiology attending physician has personally reviewed this study, and had reviewed and/or edited this written report and agrees with it. Electronically signed by: Patricia Mehta M.D. Narrative 04/01/2020 12:42 PM BOX TOE CEMENTER EXAMINATION: Magnetic resonance imaging (MRI) of the [...] For 1 dose Given 03/30/2020 6:20 PM BOX TOE CEMENTER 20 mL documented in this encounter Orders Medications Ordered That Jefferson ht Not Have Been Administered Count Last Ordered Date First Ordered Date gadoterate meglumine (DOTARE M) 0.5 mmol/mL injection 20 mL 1 03/30/2020 documented in this encounter Care Teams Corncob Pipe Supervisor Relationship Specialty Start Date End Date Ravi Smith MD PCP - General 11/04/17 09/27/21 AftKianna MD PhD [address] [place] [address] Surgeon Surgical Oncology 11/22/17 Santiago Gilbert MD [address] [place] [address] Manager Of Security Gastroenterology 11/22/17 Dmitry Sanderson MD [address] [place] [address] Referring Physician Colon and Rectal Surgery 12/03/1805/06 Abbi Ventura MD [address] [place] [address] [address] [place] [address] Medical Oncologist/Territory Sales Manager Medical Oncology 12/03/18 Montse Thompson MD [address] [place] [address] [address] [place] [address] Consulting Physician Gynecologic Oncology 12/03/18 Lela Hardy MD PhD [address] [place] [address] [address] [place] [address] Radiation Oncologist Radiation Oncology 12/23/18 Kianna Bunch MD PhD [address] [facility] [address] [place] [address] Surgeon Surgical Oncology 12/23/18 09/17/21 documented as of this encounter
--- OUTSIDE RECORDS SUMMARY | 2024-04-24 14:51 | XMS_ITS | Encounter Summary ---
Author Organization [facility] Address [address] [place] [address] Phone Care Team Providers Care Tier In Name Role Phone Ravi Smith MD Primary Care Provider [phone] Aft, Kianna Machado MD PhD Unavailable [phone] Santiago Gilbert MD Unavailable [phone] Dmitry Sanderson MD Unavailable [phone] Abbi Ventura MD Unavailable Montse Thompson MD Unavailable [phone] Lela Hardy MD PhD Unavailable [phone] Aft, Kianna Machado MD PhD Unavailable [phone] Encounter Details Date Type Department Care Team (Late st Contact Info) Description 12/15/[address] [facility] Oncology [address] [place] [address] Halle Shaw, RN Social History Tobacco Use [...] file Legal Sex Female 1:06 AM MANAGER SMALL BUSINESS Gender Identity Not on file Sexual Orientation [...] on filedocumented in this encounter Care Teams Tier In Relationship Specialty Start Date End Date Ravi Smith MD PCP - General 11/04/17 09/27/21 Aft, Kianna Machado MD PhD [address] [place] [address] Surgeon Surgical Oncology 11/22/17 Santiago Gilbert MD [address] [place] [address] Correctional Corporal Gastroenterology 11/22/17 Dmitry Sanderson MD [address] [place] [address] Referring Physician Colon and Rectal Surgery 12/03/1805/06 Abbi Ventura MD [address] [facility] [address] [place] [address] Medical Oncologist/Learning And Development Specialist Medical Oncology 12/03/18 Montse Thompson MD [address] [place] [address] [address] [place] [address] Consulting Physician Gynecologic Oncology 12/03/18 Lela Hardy MD PhD [address] [place] [address] [address] [place] [address] Radiation Oncologist Radiation Oncology 12/23/18 Aft, Kianna Machado MD PhD [address] [place] [address] [address] [place] [address] Surgeon Surgical Oncology 12/23/18 09/17/21 documented as of this encounter
--- OUTSIDE RECORDS SUMMARY | 2024-04-24 14:51 | XMS_ITS | Encounter Summary ---
Author Organization [facility] Healthcare Address [address] [place] [address] Care Team Providers Care Vision Impaired Teacher Name Role Phone Ravi Smith MD Primary Care Provider [phone] Aft, Kianna Machado MD PhD Unavailable Santiago Gilbert MD Unavailable [phone] Dmitry Sanderson MD Unavailable [phone] Abbi Ventura MD Unavailable Montse Thompson MD Unavailable Lela Hardy MD PhD Unavailable [phone] Aft, Kianna Machado MD PhD Unavailable [phone] Encounter Details Date Type Department Care Team (Late st Contact Info) Description 04/04/2020 Telephone [facility] Radiation Oncology at [facility] [address] [place] [address] Zulema Dior, SAP SPECIALIST [address] [facility] # LL LL [address] [place] [address] Social History Tobacco Use Types Packs/Day Years [...] on file Legal Sex Female 1:06 AM KEG HEADER Gender Identity Not on file Sexual Orientation Not on file documented as of this encounter Miscellaneous Notes * Telephone Encounter - Zulema Dior NP - 04/04/2020 4:13 PM KEG HEADER Patient informed of MRI results in regards [...] to call withany concerns in the interim. HEADER documented in this encounter Plan of Treatment Not on file documented as of this encounter Visit Diagnoses Not on filedocumented in this encounter Care Teams Vision Impaired Teacher Relationship Specialty Start Date End Date Ravi Smith MD PCP - General 11/04/17 09/27/21 Aft, Kianna Machado MD PhD [address] [place] [address] Surgeon Surgical Oncology 11/22/17 Santiago Gilbert MD [address] [place] [address] Antique Jewelry Repairer Gastroenterology 11/22/17 Dmitry Sanderson MD [address] [place] [address] Referring Physician Colon and Rectal Surgery 12/03/1805/06 Abbi Ventura MD [address] [facility] [address] [place], [place] [address] Medical Oncologist/Assembly Room Supervisor Medical Oncology 12/03/18 Montse Thompson MD [address] [facility] [address] [place] [address] Consulting Physician Gynecologic Oncology 12/03/18 Lela Hardy MD PhD [address] [facility] [address] [place] [address] Radiation Oncologist Radiation Oncology 12/23/18 Aft, Kianna Machado MD PhD [address] [facility] [address] [place], [place] [address] Surgeon Surgical Oncology 12/23/18 09/17/21 documented as of this encounter
--- OUTSIDE RECORDS SUMMARY | 2024-04-24 14:51 | XMS_ITS | Encounter Summary ---
Author Organization [facility] Address [address] [place] [address] Phone Care Team Providers Care Senior Media Buyer Name Role Phone Ravi Smith MD Primary Care Provider [phone] Aft, Kianna Machado MD PhD Unavailable [phone] Santiago Gilbert MD Unavailable Dmitry Sanderson MD Unavailable [phone] Birdie Ventura MD Unavailable Montse Thompson MD Unavailable [phone] Lela Hardy MD PhD Unavailable [phone] Aft, Kianna Machado MD PhD Unavailable [phone] Reason for Referral * Consultation (Routine) - Closed Specialty Diagnoses / Procedures Referred By Contac t Referred To Contact Occupational Therapy Diagnoses 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 2nd Floor [address] [place] [address] Phone: tel: fax: Referral ID Status Reason Start Date Expiration Date V isits Requested Visits Authorized [id number] Closed Specialty Services Required 12/24/2019 01/22/2021 24 37 Question Answer PTRFR OT Evaluate and Treat Reason for Visit Cognitive Therapy related to chemo brain and memory concerns Therapy options discussed with patient? 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) Procedures MRI Breast Bilateral W WO Contrast Birdie Ventura MD [address] [place] [address] Phone: tel: fax: [facility] Referral ID Status Reason Start Date Expiration Date Visits Re quested Visits Authorized [id number] Closed 12/23/2019 01/21/2021 1 1 * MRI/CAT/PET Scan (Routine) - Closed Specialty Diagnoses / Procedures Referred By Vijaya simpson Referred To Contact Radiology Diagnoses 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) Procedures CT chest abdomen pelvis with contrast Birdie Ventura MD [address], [address] [place] [address] Phone: tel: fax: [facility] Referral ID Status Reason Start Date Expiration Date Visits Re quested Visits Authorized [id number] Closed 12/23/2019 01/21/2021 1 1 Encounter Details Date Type Department Care Team (Late st Contact Info) Description 12/23/2019 3:00 PM CDT Office Visit [facility] Oncology [address] [place] [address] Birdie Ventura MD [address] [place] [address] Malignant neoplasm of descending colon [...] on file Legal Sex Female 1:06 AM LAW SECRETARY Gender Identity Not on file Sexual Orientation [...] this encounter Progress Notes * Vianey Miller, TRANSFORMATION ARCHITECT - 12/23/2019 3:00 PM CDT The Patient Identifying Data: Aleah Gerber is a 64 y.o. female seen in followup today DIAGNOSIS: 1. 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 SunModular My risk showed no mutation in MLH [...] ~ 1.4 cm, Grade 3, ER 0, AL 0, HER-2 IHC 0. Partial mastectomy and [...] MSN, OCN, ANP Nurse Practitioner, Medical Oncology Delineator completed by using M*Modal Fluency Direct speaking [...] encounter Results * CEA (04/26/2020 12:44 PM LAW SECRETARY) [facility] Signature CEA 1.8 <=5.0 ng/mL LEVAR MICHELLE Comment: Interpretative Data: Reference Range: Non-Smokers: 0.0 - 5.0 ng/mL Smokers: 0.0 ? 6.5 ng/mL This test was developed and its performance characteristics determined by the [facility] in a manner consistent with CLIA requirements. This test has not been cleared or approved by the U.S. Food and Drug Administration. Current interpretive data was last revised 2018. Blood specimen (specimen) 04/26/2020 12:44 PM LAW SECRETARY 04/26/2020 2:37 PM LAW SECRETARY us Birdie Ventura MD LAB BLOOD ORDERABLES Final Resul t [facility] Department [place] [address] * (ABNORMAL) Comprehensive metabolic panel (04/26/2020 12:44 PM LAW SECRETARY) Pathologist [facility] Sodium 142 135 - 145 mmol/L [facility] Potassium, pl 3.5 3.3 - 4.9 mmol/L [facility] Chloride 107 97 - 110 mmol/L [facility] CO2 29 22 - 32 mmol/L [facility] Anion gap 6 2 - 15 mmol/L [facility] BUN 21 8 - 25 mg/dL [facility] Creatinine 1.37(H) 0.60 - 1.10 mg/dL [facility] Glucose 125 70 - 199 mg/dL [facility] [...] 2017. Calcium 9.7 8.5 - 10.3 mg/dL [facility] Bilirubin, total 0.4 0.1 - 1.2 mg/dL [facility] Protein, pl 7.1 6.5 - 8.5 g/dL [facility] Albumin 4.2 3.5 - 5.0 g/dL [facility] Alk phos 110 40 - 130 Units/L [facility] ALT 10 7 - 45 Units/L [facility] AST 20 10 - 45 Units/L [facility] Blood specimen (specimen) 04/26/2020 12:44 PM LAW SECRETARY 04/26/2020 12:46 PM LAW SECRETARY us Birdie Ventura MD LAB BLOOD ORDERABLES Final Resul t [facility] Department [place] [address] * CBC with auto differential (04/26/2020 12:44 PM LAW SECRETARY) Pathologist [facility] WBC 9.9 3.8 - 9.9 K/cumm [facility] Hgb 12.3 11.9 - 15.5 g/dL [facility] Hct 37.5 35.6 - 45.5 % [facility] Plt 189 150 - 400 K/cumm [facility] MPV 9.8 9.1 - 12.3 fL [facility] RBC 4.02 3.90 - 5.20 M/cumm [facility] MCV 93.3 81.3 - 96.4 fL [facility] MCH 30.6 27.1 - 33.3 pg [facility] MCHC 32.8 32.3 - 35.7 g/dL [facility] RDW CV 13.1 11.1 - 14.9 % [facility] RDW SD 44.7 35.7 - 48.1 fL [facility] NRBC abs 0.00 0.00 - 0.01 K/cumm [facility] Blood specimen (specimen) 04/26/2020 12:44 PM LAW SECRETARY 04/26/2020 12:46 PM LAW SECRETARY us Birdie Ventura MD LAB BLOOD ORDERABLES Final Resul t [facility] Department [place] [address] * MRI Breast Bilateral W WO Contrast (04/19/2020 11:58 AM LAW SECRETARY) Anatomical Region Laterality Modality Breast Bilateral Magnetic Resonan ce 04/19/2020 1:33 PM LAW SECRETARY Impressions 04/19/2020 5:19 PM LAW SECRETARY 1. No suspicious abnormality. Stable LEFT breast [...] Amari Akbar M.D. Narrative 04/19/2020 5:19 PM LAW SECRETARY ALEAH GERBER, : 1955 (64 years), , [...] by: Amari Akbar M.D. Birdie Ventura MD [facility] MRI PROCEDURES Final Result * CT chest abdomen pelvis with contrast (04/19/2020 10:53 AM LAW SECRETARY) Anatomical Region Laterality Modality Body N/A Computed Tomogra phy 04/19/2020 11:1 2 AM LAW SECRETARY Impressions 04/19/2020 11:12 AM LAW SECRETARY No change when compared to the prior study. Changes of a partial colonic resection but no metastasis or recurrence within the chest, abdomen or pelvis. Electronically signed by: Ovidio Meyers M.D. Narrative 04/19/2020 11:12 AM LAW SECRETARY EXAMINATION: CT CHEST, ABDOMEN AND PELVIS WITH [...] 04/26/2020 documented in this encounter Care Teams Senior Media Buyer Relationship Specialty Start Date End Date Ravi Smith MD PCP - General 11/04/17 09/27/21 Aft, Kianna Machado MD PhD [address] [place] [address] Surgeon Surgical Oncology 11/22/17 Santiago Gilbert MD [address] [place] [address] Lining Mechanic Gastroenterology 11/22/17 Dmitry Sanderson MD [address] [place] [address] Referring Physician Colon and Rectal Surgery 12/03/1805/06 Birdie Ventura MD [address] [place] [address] Medical Oncologist/Plycor Operator Medical Oncology 12/03/18 Montse Thompson MD [address] [place] [address] [address] [place] [address] Consulting Physician Gynecologic Oncology 12/03/18 Lela Hardy MD PhD [address] [facility] [address] [place] [address] Radiation Oncologist Radiation Oncology 12/23/18 Aft, Kianna Machado MD PhD [address] [place] [address] [address] [place] [address] Surgeon Surgical Oncology 12/23/18 09/17/21 documented as of this encounter
--- OUTSIDE RECORDS SUMMARY | 2024-04-24 14:51 | XMS_ITS | Encounter Summary ---
Author Organization [facility] Address [address] [place] [address] Phone Care Team Providers Care Batch Weigher Name Role Phone Ravi Smith MD Primary Care Provider [phone] Aft, Kianna Machado MD PhD Unavailable [phone] Santiago Gilbert MD Unavailable [phone] Dmitry Sanderson MD Unavailable [phone] Abbi Ventura MD Unavailable Montse Thompson MD Unavailable [phone] Lela Hardy MD PhD Unavailable [phone] Aft, Kianna Machado MD PhD Unavailable [phone] Encounter Details Date Type Department Care Team (Late st Contact Info) Description 12/21/2019 Telephone [facility] Surgery [address] [facility] Advanced Medicine 5th [place] [address] [place] [address] Jessica Swanson, [facility] [address] [id number] Social History Tobacco Use Types Packs/Day Years [...] file Legal Sex Female 1:06 AM CHIEF LIBRARIAN WORK WITH BLIND Gender Identity Not on file Sexual Orientation [...] filedocumented in this encounter Care Teams Batch Weigher Relationship Specialty Start Date End Date Ravi Smith MD PCP - General 11/04/17 09/27/21 Aft, Kianna Machado MD PhD [address] [place] [address] Surgeon Surgical Oncology 11/22/17 Santiago Gilbert MD [address] [place] [address] Mud Analysis Well Logging Captain Gastroenterology 11/22/17 Dmitry Sanderson MD [address] [place] [address] Referring Physician Colon and Rectal Surgery 12/03/1805/06 Abbi Ventura MD [address] [place] [address] [address] [place] [address] Medical Oncologist/Informatics Pharmacist Medical Oncology 12/03/18 Montse Thompson MD [address] [place] [address] [address] [place] [address] Consulting Physician Gynecologic Oncology 12/03/18 Lela Hardy MD PhD [address] [place] [address] [address] [place] [address] Radiation Oncologist Radiation Oncology 12/23/18 Aft, Kianna Machado MD PhD [address] [place] [address] [address] [place] [address] Surgeon Surgical Oncology 12/23/18 09/17/21 documented as of this encounter
--- OUTSIDE RECORDS SUMMARY | 2024-04-24 14:52 | XMS_ITS | Encounter Summary ---
Author Organization [facility] Address [address] [place] [address] Phone Care Team Providers Care Occupational Therapist Home Based Name Role Phone Ravi Smith MD Primary Care Provider [phone] Aft, Kianna Machado MD PhD Unavailable [phone] Santiago Gilbert MD Unavailable [phone] Dmitry Sanderson MD Unavailable [phone] Abbi Ventura MD Unavailable Montse Thompson MD Unavailable [phone] Lela Hardy MD PhD Unavailable [phone] Aft, Kianna Machado MD PhD Unavailable [phone] Encounter Details Date Type Department Care Team (Late st Contact Info) Description 06/18/2019 Orders Only [facility] Surgery [address] [facility] Advanced Medicine 5th [place] [address] [place] [address] Jessica Swanson, [facility] [address] [phone] History of breast cancer (Primary Dx) Social [...] on file Legal Sex Female 1:06 AM PROTEIN CHEMIST Gender Identity Not on file Sexual Orientation Not on file documented as of this encounter Plan of Treatment Not on file documented as of this encounter Visit Diagnoses Diagnosis History of breast cancer- Primary Personal history of malignant neoplasm of breast documented in this encounter Care Teams Occupational Therapist Home Based Relationship Specialty Start Date End Date Ravi Smith MD PCP - General 11/04/17 09/27/21 Aft, Kianna Machado MD PhD [address] [place] [address] Surgeon Surgical Oncology 11/22/17 Santiago Gilbert MD [address] [place] [address] J2Ee Software Engineer Gastroenterology 11/22/17 Dmitry Sanderson MD [address] [place] [address] Referring Physician Colon and Rectal Surgery 12/03/1805/06 Abbi Ventura MD [address] [facility] [address] [place] [address] Medical Oncologist/Bridge Ironworker Helper Medical Oncology 12/03/18 Montse Thompson MD [address] [place] [address] Consulting Physician Gynecologic Oncology 12/03/18 Lela Hardy MD PhD [address] [facility] [address] [place] [address] Radiation Oncologist Radiation Oncology 12/23/18 Aft, Kianna Machado MD PhD [address] [facility] [address] [place] [address] Surgeon Surgical Oncology 12/23/18 09/17/21 documented as of this encounter
--- OUTSIDE RECORDS SUMMARY | 2024-04-24 14:52 | XMS_ITS | Encounter Summary ---
Author Organization [facility] Address [address] [place] [address] Care Team Providers Care News Analyst Name Role Phone Ravi Smith MD Primary Care Provider [phone] Aft, Kianna Machado MD PhD Unavailable [phone] Santiago Gilbert MD Unavailable [phone] Dmitry Sanderson MD Unavailable [phone] Abbi Ventura MD Unavailable Montse Thompson MD Unavailable [phone] Lela Hardy MD PhD Unavailable [phone] Aft, Kianna Machado MD PhD Unavailable [phone] Reason for Referral * Diagnostic Imaging (Routine) - Closed Specialty Diagnoses / Procedures Referred By Contac t Referred To Contact Diagnoses 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) Procedures NM Bone Imaging Whole Body Abbi Ventura MD [address] [facility] [address] [place] [address] Phone: tel: fax: [address] [address] Referral ID Status Reason Start Date Expiration Date Visits Re quested Visits Authorized [id number] Closed 06/17/2019 12/26/2020 2 2 R UNION BUSINESS REPRESENTATIVE Reason for Visit * Diagnostic Imaging (Routine) - Closed Specialty Diagnoses / Procedures Referred By Contac t Referred To Contact Diagnoses 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) Procedures NM Bone Imaging Whole Body Abbi Ventura MD [address] [place] [address] Phone: tel: fax: [facility] [address] [place] [address] Referral ID Status Reason Start Date Expiration Date Visits Re quested Visits Authorized [id number] Closed 06/17/2019 12/26/2020 2 2 Encounter Details Date Type Department Care Team (Latest Contact Info) Description 06/24/2019 8:30 AM LABOR UNION BUSINESS REPRESENTATIVE - 06/24/2019 11:59 PM LABOR UNION BUSINESS REPRESENTATIVE Hospital Encounter [facility] [address] [place] [address] Abbi Ventura MD [address] [place] [address] Malignant neoplasm of descending colon [...] on file Legal Sex Female 1:06 AM LABOR UNION BUSINESS REPRESENTATIVE Gender Identity Not on file Sexual [...] Read Routine (OP Routine) 06/24/2019 12:56 PM LABOR UNION BUSINESS REPRESENTATIVE Malignant neoplasm of descending colon (CMS/HCC) documented in this encounter Results * NM Bone Imaging Whole Body (06/24/2019 12:56 PM LABOR UNION BUSINESS REPRESENTATIVE) Anatomical Region Laterality Modality N/A Digital Radiogra phy 06/24/2019 1:23 PM LABOR UNION BUSINESS REPRESENTATIVE Impressions 06/24/2019 1:31 PM LABOR UNION BUSINESS REPRESENTATIVE No definite scintigraphic evidence of osseous metastatic disease. Dictated by: Meredith Hankins M.D. The radiology attending physician has personally reviewed this study, and had reviewed and/or edited this written report and agrees with it. Electronically signed by: Lela Lainez M.D. Narrative 06/24/2019 1:31 PM LABOR UNION BUSINESS REPRESENTATIVE EXAMINATION: ??BONE SCINTIGRAPHY (WHOLE-BODY) DATE OF STUDY: [...] by: Lela Lainez M.D. Abbi Ventura MD [facility] PROCEDURES Final Result documented in this [...] RadiographyIndications:Lexi gnostic Radiography Given 06/24/2019 9:51 AM LABOR UNION BUSINESS REPRESENTATIVE 22.2 millicuries documented in this encounter Orders Medications Ordered That Jefferson ht Not Have Been Administered Count Last Ordered Date First Ordered Date tc-99m medronate (MDP) injec tion 20 millicurie 1 06/24/2019 documented in this encounter Care Teams News Analyst Relationship Specialty Start Date End Date Ravi Smith MD PCP - General 11/04/17 09/27/21 AftKianna MD PhD [address] [place] [address] Surgeon Surgical Oncology 11/22/17 Santiago Gilbert MD [address] [place] [address] Environmental Emergencies Assistant Gastroenterology 11/22/17 Dmitry Sanderson MD [address] [place] [address] Referring Physician Colon and Rectal Surgery 12/03/1805/06 Abbi Ventura MD [address] [place] [address] Medical Oncologist/Environmental Emergencies Assistant Medical Oncology 12/03/18 Montse Thompson MD [address] [place] [address] Consulting Physician Gynecologic Oncology 12/03/18 Lela Hardy MD PhD [address] [place] [address] Radiation Oncologist Radiation Oncology 12/23/18 Kianna Bunch MD PhD [address] [place] [address] Surgeon Surgical Oncology 12/23/18 09/17/21 documented as of this encounter
--- OUTSIDE RECORDS SUMMARY | 2024-04-24 14:52 | XMS_ITS | Encounter Summary ---
Author Organization [facility] Address [address] [place] [address] Phone Care Team Providers Care Plate Mill Hand Name Role Phone Ravi Smith MD Primary Care Provider [phone] Aft, Kianna Machado MD PhD Unavailable [phone] Santiago Gilbert MD Unavailable [phone] Dmitry Sanderson MD Unavailable [phone] Abbi Ventura MD Unavailable Montse Thompson MD Unavailable [phone] Lela Hardy MD PhD Unavailable [phone] Aft, Kianna Machado MD PhD Unavailable [phone] Encounter Details Date Type Department Care Team (Late st Contact Info) Description 10/21/2019 Telephone [facility] Surgery [address] [facility] Advanced Medicine 5th [place] [address] [place] [address] Jessica Swanson, [facility] [address] [id number] Social History Tobacco Use Types Packs/Day Years [...] file Legal Sex Female 1:06 AM CHIEF BUSINESS OFFICER Gender Identity Not on file Sexual [...] on filedocumented in this encounter Care Teams Plate Mill Hand Relationship Specialty Start Date End Date Ravi Smith MD PCP - General 11/04/17 09/27/21 Aft, Kianna Machado MD PhD [address] [place] [address] Surgeon Surgical Oncology 11/22/17 Santiago Gilbert MD [address] [place] [address] Talent Acquisition Program Manager Gastroenterology 11/22/17 Dmitry Sanderson MD [address] [place] [address] Referring Physician Colon and Rectal Surgery 12/03/1805/06 Abbi Ventura MD [address] [place] [address] [address] [place] [address] Medical Oncologist/Medical Communication Specialist Medical Oncology 12/03/18 Montse Thompson MD [address] [facility] [address] [place], [place] [address] Consulting Physician Gynecologic Oncology 12/03/18 Lela Hardy MD PhD [address] [place] [address] [address] [place], [place] [id number] Radiation Oncologist Radiation Oncology 12/23/18 Aft, Kianna Machado MD PhD [address] [place] [address] [address] [place], [place] [address] Surgeon Surgical Oncology 12/23/18 09/17/21 documented as of this encounter
--- OUTSIDE RECORDS SUMMARY | 2024-04-24 14:52 | XMS_ITS | Encounter Summary ---
Author Organization [facility] Address [address] [place] [address] Phone Care Team Providers Care Mains And Service Supervisor Name Role Phone Ravi Smith MD Primary Care Provider [phone] Aft, Kianna Machado MD PhD Unavailable [phone] Santiago Gilbert MD Unavailable [phone] Dmitry Sanderson MD Unavailable [phone] Abbi Ventura MD Unavailable Montse Thompson MD Unavailable [phone] Lela Hardy MD PhD Unavailable [phone] Aft, Kianna Machado MD PhD Unavailable Encounter Details Date Type Department Care Team (Late st Contact Info) Description 06/05/2019 Telephone [facility] Pulmonary [address] [facility] Advanced Medicine 8th [place] [address] [place] [address] Mary Garcia MD [address] [place] [address] Social History Tobacco Use Types [...] on file Legal Sex Female 1:06 AM FIRE CHIEF Gender Identity Not on file Sexual Orientation Not on file documented as of this encounter Miscellaneous Notes * Telephone Encounter - Mary Garcia MD - 06/05/2019 2:17 PM CST D/w pt that sleep study showed mild VIOLETTE. Discussed APAP v. Oral appliance. Will order APAP and haveher f/u in 2-3 months. CHIEF documented in this encounter Plan of Treatment Not on file documented as of this encounter Visit Diagnoses Diagnosis Obstructive sleep apnea- Primary Obstructive sleep apnea (adult) (pediatric) documented in this encounter Care Teams Mains And Service Supervisor Relationship Specialty Start Date End Date Ravi Smith MD PCP - General 11/04/17 09/27/21 Aft, Kianna Machado MD PhD [address] [place] [address] Surgeon Surgical Oncology 11/22/17 Santiago Gilbert MD [address] [place] [address] Driver Service Technician Gastroenterology 11/22/17 Dmitry Sanderson MD [address] [place] [address] Referring Physician Colon and Rectal Surgery 12/03/1805/06 Abbi Ventura MD [address] [place] [address] [address] [place] [address] Medical Oncologist/Otr Refrigerated Cdl Truck Driver Medical Oncology 12/03/18 Montse Thompson MD [address] [facility] [address] [place] [address] Consulting Physician Gynecologic Oncology 12/03/18 Lela Hardy MD PhD [address] [place] [address] [address] [place] [address] Radiation Oncologist Radiation Oncology 12/23/18 Aft, Kianna Machado MD PhD [address] [place] [address] [address] [place] [address] Surgeon Surgical Oncology 12/23/18 09/17/21 documented as of this encounter
--- OUTSIDE RECORDS SUMMARY | 2024-04-24 14:52 | XMS_ITS | Encounter Summary ---
Author Organization [facility] Address [address] [place] [address] Phone Care Team Providers Care Emergency Communications Dispatcher Name Role Phone Ravi Smith MD Primary Care Provider [phone] Aft, Kianna Machado MD PhD Unavailable [phone] Santiago Gilbert MD Unavailable [phone] Dmitry Sanderson MD Unavailable [phone] Abbi Ventura MD Unavailable Montse Thompson MD Unavailable [phone] Lela Hardy MD PhD Unavailable [phone] Aft, Kianna Machado MD PhD Unavailable [phone] Reason for Visit * Reason Onset Date Comments Appointment 06/18/2019 Encounter Details Date Type Department Care Team (Late st Contact Info) Description 06/18/2019 Telephone [facility] Surgery [address] [facility] Advanced Medicine 5th [place] [address] [place] [address] Jessica Swanson, [facility] [address] [address] Appointment Social History Tobacco Use Types Packs/Day [...] Legal Sex Female 1:06 AM WIRE COATING MACHINE OPERATOR Gender Identity Not on file Sexual Orientation Not on file documented as of this encounter Miscellaneous Notes * Telephone Encounter - Oswaldo Contreras - 06/18/2019 11:00 AM CST Called patient to schedule her dx mamm at an [facility]. Confirmed 08/17/19 @10:00 (arrive at 9:30) and follow up with [facility] on 08/20/19. COATING MACHINE OPERATOR documented in this encounter Plan of Treatment Not on file documented as of this encounter Visit Diagnoses Not on filedocumented in this encounter Care Teams Emergency Communications Dispatcher Relationship Specialty Start Date End Date Ravi Smith MD PCP - General 11/04/17 09/27/21 Aft, Kianna Machado MD PhD [address] [place] [address] Surgeon Surgical Oncology 11/22/17 Santiago Gilbert MD [address] [place] [address] Printed Circuit Designer Gastroenterology 11/22/17 Dmitry Sanderson MD [address] [place] [address] Referring Physician Colon and Rectal Surgery 12/03/1805/06 Abbi Ventura MD [address] [place] [address] [address] [place] [address] Medical Oncologist/Design/Animation Instructor Medical Oncology 12/03/18 Montse Thompson MD [address] [place] [address] [address] [place] [address] Consulting Physician Gynecologic Oncology 12/03/18 Lela Hardy MD PhD [address] [place] [address] [address] [place] [address] Radiation Oncologist Radiation Oncology 12/23/18 Aft, Kianna Machado MD PhD [address] [place] [address] [address] [place] [address] Surgeon Surgical Oncology 12/23/18 09/17/21 documented as of this encounter
--- OUTSIDE RECORDS SUMMARY | 2024-04-24 14:52 | XMS_ITS | Encounter Summary ---
Author Organization [facility] Address [address] [place] [address] Phone Care Team Providers Care Professor Of Education Name Role Phone Ravi Smith MD Primary Care Provider [phone] Aft, Kianna Machado MD PhD Unavailable Santiago Gilbert MD Unavailable [phone] Dmitry Sanderson MD Unavailable [phone] Abbi Ventura MD Unavailable Montse Thompson MD Unavailable [phone] Lela Hardy MD PhD Unavailable [phone] Aft, Kianna Machado MD PhD Unavailable [phone] Encounter Details Date Type Department Care Team (Late st Contact Info) Description 06/03/2019 Telephone [facility] Surgery [address] [facility] Advanced Medicine 5th [place] [address] [place] [address] Jessica Swanson, [facility] [address] [phone] Social History Tobacco Use Types Packs/Day Years [...] on file Legal Sex Female 1:06 AM BD SPECIAL EDUCATION TEACHER Gender Identity Not on file Sexual Orientation Not on file documented as of this encounter Miscellaneous Notes * Telephone Encounter - Jessica Swanson CNS - 06/03/2019 3:26 PM CST Ms. Gerber sent a portal message about her appointment for June 04. It was cancelled in the system, and she wants to be seen. The appointment will be rescheduled. SPECIAL EDUCATION TEACHER documented in this encounter Plan of Treatment Not on file documented as of this encounter Visit Diagnoses Not on filedocumented in this encounter Care Teams Professor Of Education Relationship Specialty Start Date End Date Ravi Smith MD PCP - General 11/04/17 09/27/21 Aft, Kianna Machado MD PhD [address] [place] [address] Surgeon Surgical Oncology 11/22/17 Santiago Gilbert MD [address] [place] [address] Dragger Out Gastroenterology 11/22/17 Dmitry Sanderson MD [address] [place] [address] Referring Physician Colon and Rectal Surgery 12/03/1805/06 Abbi Ventura MD [address] [place] [address] [address] [place] [address] Medical Oncologist/Adjuster And Inspector Medical Oncology 12/03/18 Montse Thompson MD [address] [facility] [address] [place] [address] Consulting Physician Gynecologic Oncology 12/03/18 Lela Hardy MD PhD [address] [place] [address] [address] [place] [address] Radiation Oncologist Radiation Oncology 12/23/18 Aft, Kianna Machado MD PhD [address] [place] [address] [address] [place] [address] Surgeon Surgical Oncology 12/23/18 09/17/21 documented as of this encounter
--- OUTSIDE RECORDS SUMMARY | 2024-04-24 14:52 | XMS_ITS | Encounter Summary ---
Author Organization [facility] Address [address] [place] [address] Phone Care Team Providers Care Welt Sewer Name Role Phone Ravi Smith MD Primary Care Provider [phone] Aft, Kianna Machado MD PhD Unavailable [phone] Santiago Gilbert MD Unavailable [phone] Dmitry Sanderson MD Unavailable [phone] Abbi Ventura MD Unavailable Montse Thompson MD Unavailable Lela Hardy MD PhD Unavailable Aft, Kianna Machado MD PhD Unavailable [phone] Encounter Details Date Type Department Care Team (Late st Contact Info) Description 07/09/2019 Telephone [facility] Neuro Sleep [address] [facility] 6th Floor [address] [place] [address] Bettina Harper, RN Social History [...] on file Legal Sex Female 1:06 AM WASTEWATER SUPERINTENDENT Gender Identity Not on file Sexual Orientation Not on file documented as of this encounter Miscellaneous Notes * Telephone Encounter - Bettina Harper RN - 07/09/2019 9:18 AM WASTEWATER SUPERINTENDENT ----- Message from Aleah Gerber sent at 07/02/2019 3:32 PM WASTEWATER SUPERINTENDENT ----- Regarding: RE: Non-Urgent Medical Question Contact: Should the appointment for July 29 be changed? EWATER SUPERINTENDENT documented in this encounter Plan of Treatment Not on file documented as of this encounter Visit Diagnoses Not on filedocumented in this encounter Care Teams Welt Sewer Relationship Specialty Start Date End Date Ravi Smith MD PCP - General 11/04/17 09/27/21 Aft, Kianna Machado MD PhD [address] [place] [address] Surgeon Surgical Oncology 11/22/17 Santiago Gilbert MD [address] [place] [address] Midlevel Provider Gastroenterology 11/22/17 Dmitry Sanderson MD [address] [place] [address] Referring Physician Colon and Rectal Surgery 12/03/1805/06 Abbi Ventura MD [address] [facility] [address] [place] [address] Medical Oncologist/Heel Curver Medical Oncology 12/03/18 Montse Thompson MD [address] [facility] [address] [place] [address] Consulting Physician Gynecologic Oncology 12/03/18 Lela Hardy MD PhD [address] [facility] [address] [place] [address] Radiation Oncologist Radiation Oncology 12/23/18 Aft, Kianna Machado MD PhD [address] [facility] [address] [place] [address] Surgeon Surgical Oncology 12/23/18 09/17/21 documented as of this encounter
--- OUTSIDE RECORDS SUMMARY | 2024-04-24 14:52 | XMS_ITS | Encounter Summary ---
Author Organization [facility] Address [address] [place] [address] Phone Care Team Providers Care Meteorological Observer Name Role Phone Ravi Smith MD Primary Care Provider [phone] Aft, Kianna Machado MD PhD Unavailable Santiago Gilbert MD Unavailable [phone] Dmitry Sanderson MD Unavailable [phone] Abbi Ventura MD Unavailable Montse Thompson MD Unavailable [phone] Lela Hardy MD PhD Unavailable [phone] Aft, Kianna Machado MD PhD Unavailable [phone] Encounter Details Date Type Department Care Team (Late st Contact Info) Description 07/02/2019 Telephone [facility] Neuro Sleep [address] [facility] 6th Floor [address] [place] [address] Bettina Harper, RN Social History [...] on file Legal Sex Female 1:06 AM ONLINE MARKETING COORDINATOR Gender Identity Not on file Sexual Orientation Not on file documented as of this encounter Miscellaneous Notes * Telephone Encounter - Bettina Harper RN - 07/02/2019 2:43 PM ONLINE MARKETING COORDINATOR Contacted [facility] and confirmed that the patient's insurance is out of network. They documented that they called on 06/09/19 and [facility]. Contacted [facility] and they state theytake this insurance. Faxed DME order to [facility] with all necessary documents. Order scanned with fax confirmation page. NE MARKETING COORDINATOR * Telephone Encounter - Bettina Harper RN - 07/02/2019 2:43 PM ONLINE MARKETING COORDINATOR ----- Message from Aleah Gerber sent at 07/01/2019 5:59 PM ONLINE MARKETING COORDINATOR ----- Regarding: Non-Urgent Medical Question Contact: I have not received a machine or any further info from sleep study Other than you saying I would benefit from having machine and a company called who said they don???t take my insurance. That being said should the appointment for July be changed? Where do we go from here. Aleah Gerber 1955 NE MARKETING COORDINATOR documented in this encounter Plan of Treatment Not on file documented as of this encounter Visit Diagnoses Not on filedocumented in this encounter Care Teams Meteorological Observer Relationship Specialty Start Date End Date Ravi Smith MD PCP - General 11/04/17 09/27/21 Aft, Kianna Machado MD PhD [address] [place] [address] Surgeon Surgical Oncology 11/22/17 Santiago Gilbert MD [address] [place] [address] Electrical Checkout Mechanic Gastroenterology 11/22/17 Dmitry Sanderson MD [address] [place], [place] [address] Referring Physician Colon and Rectal Surgery 12/03/1805/06 Abbi Ventura MD [address] [place] [address] [address] [place], [place] [address] Medical Oncologist/Section Laborer Medical Oncology 12/03/18 Montse Thompson MD [address] [place] [address] [address] [place] [address] Consulting Physician Gynecologic Oncology 12/03/18 Lela Hardy MD PhD [address] [place] [address] [address] [place], [place] [address] Radiation Oncologist Radiation Oncology 12/23/18 Aft, Kianna Machado MD PhD [address] [place] [address] [address] [place], [place] [address] Surgeon Surgical Oncology 12/23/18 09/17/21 documented as of this encounter
--- OUTSIDE RECORDS SUMMARY | 2024-04-24 14:52 | XMS_ITS | Encounter Summary ---
Author Organization [facility] Address [address] [place] [address] Phone Care Team Providers Care Analytical Lab Analyst Name Role Phone Ravi Smith MD Primary Care Provider [phone] Aft, Kianna Machado MD PhD Unavailable [phone] Santiago Gilbert MD Unavailable [phone] Dmitry Sanderson MD Unavailable [phone] Abbi Ventura MD Unavailable Montse Thompson MD Unavailable [phone] Lela Hardy MD PhD Unavailable [phone] Aft, Kianna Machado MD PhD Unavailable [phone] Encounter Details Date Type Department Care Team (Late st Contact Info) Description 09/07/2019 Telephone [facility] Neuro Sleep [address] [facility] 6th Floor [address] [place] [address] Mora Pedro Social History Tobacco [...] on file Legal Sex Female 1: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 ETHNIC 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 Gender Identity Not on file Sexual [...] on filedocumented in this encounter Care Teams Analytical Lab Analyst Relationship Specialty Start Date End Date Ravi Smith MD PCP - General 11/04/17 09/27/21 Aft, Kianna Machado MD PhD [address] [place] [address] Surgeon Surgical Oncology 11/22/17 Santiago Gilbert MD [address] [place] [address] Antique Refinisher Gastroenterology 11/22/17 Dmitry Sanderson MD [address] [place] [address] Referring Physician Colon and Rectal Surgery 12/03/1805/06 Abbi Ventura MD [address] [place] [address] [address] [place] [address] Medical Oncologist/Quilt Stuffer Medical Oncology 12/03/18 Montse Thompson MD [address] [facility] [address] [place], [place] [address] Consulting Physician Gynecologic Oncology 12/03/18 Lela Hardy MD PhD [address] [facility] [address] [place] [address] Radiation Oncologist Radiation Oncology 12/23/18 Aft, Kianna Machado MD PhD [address] [facility] [address] [place] [address] Surgeon Surgical Oncology 12/23/18 09/17/21 documented as of this encounter
--- OUTSIDE RECORDS SUMMARY | 2024-04-24 14:52 | XMS_ITS | Encounter Summary ---
Author Organization [facility] Address [address] [place] [address] Phone Care Team Providers Care Unit Leader Name Role Phone Ravi Smith MD Primary Care Provider [phone] Aft, Kianna Machado MD PhD Unavailable [phone] Santiago Gilbert MD Unavailable [phone] Dmitry Sanderson MD Unavailable [phone] Abbi Ventura MD Unavailable Montse Thompson MD Unavailable [phone] Lela Hardy MD PhD Unavailable [phone] Aft, Kianna Machado MD PhD Unavailable [phone] Reason for Referral * Pulmonology (Routine) - Closed Specialty Diagnoses / Procedures Referred By Contac t Referred To Contact Pulmonary Disease Diagnoses Chronic obstructive pulmonary disease, unspecified COPD type (HCC) Procedures Pulmonary Function Test -[facility] Adult PFT Lab- CAM-8D; Spirometry, Oxygen Assessment Titration Cristobal Dong MD [address] [facility] [address] [place] [address] Phone: tel: fax: Referral ID Status Reason Start Date Expiration Date Visits Re quested Visits Authorized [id number] Closed 08/12/2019 02/20/2021 6 6 Encounter Details Date Type Department Care Team (Late st Contact Info) Description 08/12/2019 Orders Only [facility] Pulmonary [address] 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 Gender Identity Not on file Sexual [...] FVC PRED 3.67 0.05 - 9.99 Liters [facility] FVC PRE 2.92 0 - 12 Liters [facility] FVC %PRE PRED 79 0 - 300 % [facility] FEV1 PRED 2.85 0.05 - 9.99 Liters [facility] FEV1 PRE 2.15 0 - 12 Liters [facility] FEV1 %PRE PRED 75 0 - 300 % [facility] FEV1/FVC PRED 78 1 - 99 % [facility] FEV1/FVC PRE 74 0 - 12 % [facility] QSQ56-74% PRED 2.43 0 - 12 L/sec [facility] LLS22-52% PRE 1.60 0 - 12 L/sec [facility] WBG12-66% %PRE PRED 66 0 - 300 % [facility] FEF75% PRED 0.70 0 - 300 L/sec [facility] FEF75% PRE 0.47 0 - 12 L/sec [facility] FEF75% %PRE PRED 66 % [facility] PEF PRED 6.30 0 - 18 L/sec [facility] PEF PRE 6.58 0 - 18 L/sec [facility] PEF %PRE PRED 105 0 - 300 % [facility] PIF PRE 5.12 0 - 18 L/sec [facility] FEV6 PRE 2.80 0 - 12 Liters [facility] FEV1/FEV6 PRE 77 0 - 12 % [facility] VC PRED 3.53 0.05 - 9.99 Liters [facility] TLC PRED 5.79 0.05 - 11.99 Liters [facility] RV PRED 2.27 0.05 - 9.99 Liters [facility] RV/TLC PRED 40 0 - 300 % [facility] FRC N2 PRED 2.81 0.05 - 9.99 Liters [facility] FRC PL PRED 3.31 0.05 - 9.99 Liters [facility] ERV PRED 1.21 0.05 - 9.99 Liters [facility] DLCO PRED 27.5 0.05 - 99.99 mL/mmHg/min [facility] DL ADJ PRED 27.5 1 - 2 mL/mmHg/min [facility] DLCO/VA PRED 5.03 mL/mHg/min/ L [facility] DL/VA ADJ PRED 3.86 mL/mHg/min/ L [facility] RAW PRED 1.13 cmH2O/L/sec [facility] GAW PRED 0.794 L/sec/cmH2O [facility] SRAW PRED 3.76 cmH2O/L/s/L [facility] SGAW PRED 0.262 L/s/cmH2O/L [facility] Anatomical Region Laterality Modality PFT 12/01/2019 3:18 PM CDT Narrative 12/04/2019 4:15 PM CDT [facility] Division of Pulmonary & Critical Care Medicine [address] [place] [address]; [address]; [place], [place] [address]; [phone] Pulmonary Function Laboratory Pulmonary Stress Test Simple/Oxygen Assessment Patient: Aleah Gerber Date: 12/01/2019 Physician: Iker Ht: 69 in ?? Wt: 232 lbs Room: OP Hat Liner: Jameson : 1955 Diagnosis: COPD Time(min) Distance [...] (HCC) documented in this encounter Care Teams Unit Leader Relationship Specialty Start Date End Date Ravi Smith MD PCP - General 11/04/17 09/27/21 Kianna Bunch MD PhD [address] [place] [address] Surgeon Surgical Oncology 11/22/17 Santiago Gilbert MD [address] [place] [address] Railroad Car Checker Gastroenterology 11/22/17 Dmitry Sanderson MD [address] [place] [address] Referring Physician Colon and Rectal Surgery 12/03/1805/06 Abbi Ventura MD [address] [place] [address] [address] [place] [address] Medical Oncologist/Research Epidemiologist Medical Oncology 12/03/18 Montse Thompson MD [address] [place] [address] Consulting Physician Gynecologic Oncology 12/03/18 Lela Hardy MD PhD [address] [place] [address] Radiation Oncologist Radiation Oncology 12/23/18 Kianna Bunch MD PhD [address] [place] [address] Surgeon Surgical Oncology 12/23/18 09/17/21 documented as of this encounter
--- OUTSIDE RECORDS SUMMARY | 2024-04-24 14:52 | XMS_ITS | Encounter Summary ---
Author Organization [facility] Address [address] [place] [address] Phone Care Team Providers Care Box Hinge And Lock Attacher Name Role Phone Ravi Smith MD Primary Care Provider [phone] Aft, Kianna Machado MD PhD Unavailable [phone] Santiago Gilbert MD Unavailable Dmitry Sanderson MD Unavailable [phone] Abbi Ventura MD Unavailable Montse Thompson MD Unavailable [phone] Lela Hardy MD PhD Unavailable [phone] Aft, Kianna Machado MD PhD Unavailable [phone] Encounter Details Date Type Department Care Team (Late st Contact Info) Description 12/03/2019 Telephone [facility] Pulmonary [address] [facility] 8th [place] [address] [place] [address] Leroy Cuellar RMA Social History Tobacco Use [...] on file 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 Gender Identity Not on file Sexual [...] on filedocumented in this encounter Care Teams Box Hinge And Lock Attacher Relationship Specialty Start Date End Date Ravi Smith MD PCP - General 11/04/17 09/27/21 Aft, Kianna Machado MD PhD [address] [place] [address] Surgeon Surgical Oncology 11/22/17 Santiago Gilbert MD [address] [place] [address] Factory Hand Gastroenterology 11/22/17 Dmitry Sanderson MD [address] [place] [address] Referring Physician Colon and Rectal Surgery 12/03/1805/06 Abbi Ventura MD [address] [place], [place] [id number] Medical Oncologist/Corporate Account Executive Medical Oncology 12/03/18 Montse Thompson MD [address] [place] [address] Consulting Physician Gynecologic Oncology 12/03/18 Lela Hardy MD PhD [address] [place] [address] Radiation Oncologist Radiation Oncology 12/23/18 Aft, Kianna Machado MD PhD [address] [place], [place] [address] Surgeon Surgical Oncology 12/23/18 09/17/21 documented as of this encounter
--- OUTSIDE RECORDS SUMMARY | 2024-04-24 14:52 | XMS_ITS | Encounter Summary ---
Author Organization [facility] Address [address] [place] [address] Phone Care Team Providers Care Electron Beam Machine Welder Setter Name Role Phone Ravi Smith MD Primary Care Provider [phone] Aft, Kianna Machado MD PhD Unavailable [phone] Santiago Gilbert MD Unavailable [phone] Dmitry Sanderson MD Unavailable [phone] Abbi Ventura MD Unavailable Montse Thompson MD Unavailable [phone] Lela Hardy MD PhD Unavailable [phone] Aft, Kianna Machado MD PhD Unavailable [phone] Reason for Referral * Pulmonology (Routine) - Closed Specialty Diagnoses / Procedures Referred By Contac t Referred To Contact Pulmonary Disease Diagnoses Chronic obstructive pulmonary disease, unspecified COPD type (HCC) Procedures Pulmonary Function Test -[facility] Adult PFT Lab- CAM-8D; Spirometry, Oxygen Assessment Titration Cristobal Dong MD [address] [facility] [address] [place] [address] Phone: tel: fax: Referral ID Status Reason Start Date Expiration Date Visits Re quested Visits Authorized [id number] Closed 08/12/2019 02/20/2021 6 6 Reason for Visit * Pulmonology (Routine) - Closed Specialty Diagnoses / Procedures Referred By Contac t Referred To Contact Pulmonary Disease Diagnoses Chronic obstructive pulmonary disease, unspecified COPD type (HCC) Procedures Pulmonary Function Test -[facility] Adult PFT Lab- CAM-8D; Spirometry, Oxygen Assessment Titration Cristobal Dong MD [address] [facility] [address] [place] [address] Phone: tel: fax: Referral ID Status Reason Start Date Expiration Date Visits Re quested Visits Authorized [id number] Closed 08/12/2019 02/20/2021 6 6 Encounter Details Date Type Department Care Team (Latest Contact Info) Description 12/01/2019 3:11 PM CDT - 12/01/2019 11:59 PM CDT Hospital Encounter [facility] [address] [facility] [address] [place] [address] Chronic obstructive pulmonary disease, unspecified COPD type [...] Chronic obstructive pulmonary disease, unspecified COPD type ([facility]) documented in this encounter Results * Pulmonary Function Test - (12/01/2019 3:36 PM CDT) FVC PRED 3.67 0.05 - 9.99 Liters [facility] FVC PRE 2.92 0 - 12 Liters [facility] FVC %PRE PRED 79 0 - 300 % [facility] FEV1 PRED 2.85 0.05 - 9.99 Liters [facility] FEV1 PRE 2.15 0 - 12 Liters [facility] FEV1 %PRE PRED 75 0 - 300 % [facility] FEV1/FVC PRED 78 1 - 99 % [facility] FEV1/FVC PRE 74 0 - 12 % [facility] EUM21-37% PRED 2.43 0 - 12 L/sec [facility] GYG44-06% PRE 1.60 0 - 12 L/sec [facility] TVA17-96% %PRE PRED 66 0 - 300 % [facility] FEF75% PRED 0.70 0 - 300 L/sec [facility] FEF75% PRE 0.47 0 - 12 L/sec [facility] FEF75% %PRE PRED 66 % [facility] PEF PRED 6.30 0 - 18 L/sec [facility] PEF PRE 6.58 0 - 18 L/sec [facility] PEF %PRE PRED 105 0 - 300 % [facility] PIF PRE 5.12 0 - 18 L/sec [facility] FEV6 PRE 2.80 0 - 12 Liters [facility] FEV1/FEV6 PRE 77 0 - 12 % [facility] VC PRED 3.53 0.05 - 9.99 Liters [facility] TLC PRED 5.79 0.05 - 11.99 Liters [facility] RV PRED 2.27 0.05 - 9.99 Liters [facility] RV/TLC PRED 40 0 - 300 % [facility] FRC N2 PRED 2.81 0.05 - 9.99 Liters [facility] FRC PL PRED 3.31 0.05 - 9.99 Liters [facility] ERV PRED 1.21 0.05 - 9.99 Liters [facility] DLCO PRED 27.5 0.05 - 99.99 mL/mmHg/min [facility] DL ADJ PRED 27.5 1 - 2 mL/mmHg/min [facility] DLCO/VA PRED 5.03 mL/mHg/min/ L [facility] DL/VA ADJ PRED 3.86 mL/mHg/min/ L [facility] RAW PRED 1.13 cmH2O/L/sec [facility] GAW PRED 0.794 L/sec/cmH2O [facility] SRAW PRED 3.76 cmH2O/L/s/L [facility] SGAW PRED 0.262 L/s/cmH2O/L [facility] Anatomical Region Laterality Modality PFT 12/01/2019 3:18 PM CDT Narrative 12/04/2019 4:15 PM CDT [facility] Division of Pulmonary & Critical Care Medicine [address] [place] [address]; [place] [address]; [place], [place] [address]; [phone] Pulmonary Function Laboratory Pulmonary Stress Test Simple/Oxygen Assessment Patient: Aleah Greber Date: 12/01/2019 Physician: Iker Ht: 69 in ?? Wt: 232 lbs Room: OP Actuarial Mathematician: Jameson : 1955 Diagnosis: COPD Time(min) Distance [...] (HCC) documented in this encounter Care Teams Electron Beam Machine Welder Setter Relationship Specialty Start Date End Date Ravi Smith MD PCP - General 11/04/17 09/27/21 Aft, Kianna Machado MD PhD [address] [place] [address] Surgeon Surgical Oncology 11/22/17 Santiago Gilbert MD [address] [place] [address] Assembler Surgical Garment Gastroenterology 11/22/17 Dmitry Sanderson MD [address] [place] [address] Referring Physician Colon and Rectal Surgery 12/03/1805/06 Abbi Ventura MD [address] [facility] [address] [place] [address] Medical Oncologist/Contract Negotiation Manager Medical Oncology 12/03/18 Montse Thompson MD [address] [facility] [address] [place] [address] Consulting Physician Gynecologic Oncology 12/03/18 Lela Hardy MD PhD [address] [facility] [address] [place] [address] Radiation Oncologist Radiation Oncology 12/23/18 Aft, Kianna Machado MD PhD [address] [facility] [address] [place] [address] Surgeon Surgical Oncology 12/23/18 09/17/21 documented as of this encounter
--- OUTSIDE RECORDS SUMMARY | 2024-04-24 14:52 | XMS_ITS | Encounter Summary ---
Author Organization [facility] Address [address] [place] [address] Phone Care Team Providers Care Salvage Inspector Name Role Phone Ravi Smith MD Primary Care Provider [phone] Aft, Kianna Machado MD PhD Unavailable [phone] Santiago Gilbert MD Unavailable [phone] Dmitry Sanderson MD Unavailable [phone] Abbi Ventura MD Unavailable Montse Thompson MD Unavailable Lela Hardy MD PhD Unavailable Aft, Kianna Machado MD PhD Unavailable [phone] Encounter Details Date Type Department Care Team (Late st Contact Info) Description 09/10/2019 2:00 PM CDT Telemedicine [facility] Neuro Sleep [address] [facility] 6th [address] [place] [address] Kassie Salas, PhD [address] [place] [address] Insomnia, unspecified type (Primary Dx) [...] on file Legal 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 Use GLAD: Grateful, [place], Achieved, [place]. Or use a relaxation strategy. Use [employer] Consultant sandra and then use Tools and Quiet your Mind for other options to practice. Follow up in late November or December via Zoom documented in this encounter Progress Notes * Kassie Salas, PhD - 09/10/2019 2:00 PM CDT Patient Name: ALEAH GERBER Medical Record Number (MRN): [id number] Date of (): 1955 Encounter Date: 09/10/2019 This was a telemedicine visit with Ms. Gerber which took place via Zoom. During the visit, I was located in my home office in [place] and the patient was located in her home in [place]. The sessionstarted at 2 pm and ended at 3 pm. In addition to the time spent during the session with the patient, I spent 30 minutes on the day of the visit typing the note into [employer]. Total time spend on encounter on the [...] 64 y.o. female seen today through the [facility] for behavioral treatment of [...] new bed theday before everything closed for COVNV so presently she has no bed and [...] are grateful for. Use GLAD: Grateful for, [place] today, Achieved today, brought Sterling today. Or Ms. Gerber said that she [...] thoughts. 4. She was given the [employer] Consultant sandra which is free. Then go to [...] Zoom again. LEVEL OF SERVICE: CPT Code: 71613 60 Minutes Time started: 2 pm Time stopped: 3 pm Diagnosis: G47.00 Insomnia Unspecified documented in this encounter Plan of Treatment Not on file documented as of this encounter Visit Diagnoses Diagnosis Insomnia, unspecified type- Primary documented in this encounter Care Teams Salvage Inspector Relationship Specialty Start Date End Date Ravi Smith MD PCP - General 11/04/17 09/27/21 Aft, Kianna Machado MD PhD [address] [place] [address] Surgeon Surgical Oncology 11/22/17 Santiago Gilbert MD [address] [place] [address] Check Grader Gastroenterology 11/22/17 Dmitry Sanderson MD [address] [place] [address] Referring Physician Colon and Rectal Surgery 12/03/1805/06 Abbi Ventura MD [address] [facility] [address] [place] [address] Medical Oncologist/Corporate Administrative Assistant Medical Oncology 12/03/18 Montse Thompson MD [address] [facility] [address] [place] [address] Consulting Physician Gynecologic Oncology 12/03/18 Lela Hardy MD PhD [address] [place] [address] [address] [place] [address] Radiation Oncologist Radiation Oncology 12/23/18 Aft, Kianna Machado MD PhD [address] [place] [address] [address] [place] [address] Surgeon Surgical Oncology 12/23/18 09/17/21 documented as of this encounter
--- OUTSIDE RECORDS SUMMARY | 2024-04-24 14:52 | XMS_ITS | Encounter Summary ---
Author Organization [facility] Facility Care Team Providers Care Mold Stamper Name Role Phone Ravi Smith MD Primary Care Provider [phone] Aft, Kianna Machado MD PhD Unavailable [phone] Santiago Gilbert MD Unavailable [phone] Dmitry Sanderson MD Unavailable [phone] Abbi Ventura MD Unavailable Montse Thompson MD Unavailable [phone] Lela Hardy MD PhD Unavailable [phone] Aft, Kianna Machado MD PhD Unavailable [phone] Encounter Details Date Type Department Care Team [...] file Legal Sex Female 1:06 AM MANAGER SERVICES Gender Identity Not on file Sexual Orientation [...] on filedocumented in this encounter Care Teams Mold Stamper Relationship Specialty Start Date End Date Ravi Smith MD PCP - General 11/04/17 09/27/21 AftKianna MD PhD [address] [place] [address] Surgeon Surgical Oncology 11/22/17 Santiago Gilbert MD [address] [place] [address] Mica Patcher Gastroenterology 11/22/17 Dmitry Sanderson MD [address] [place] [address] Referring Physician Colon and Rectal Surgery 12/03/1805/06 Abbi Ventura MD [address] [place] [address] [address] [place] [address] Medical Oncologist/Platform Material Handling Supervisor Medical Oncology 12/03/18 Montse Thompson MD [address] [place] [address] [address] [place] [address] Consulting Physician Gynecologic Oncology 12/03/18 Lela Hardy MD PhD [address] [place] [address] [address] [place] [address] Radiation Oncologist Radiation Oncology 12/23/18 Kianna Bunch MD PhD [facility] [address] [place] [address] Surgeon Surgical Oncology 12/23/18 09/17/21 documented as of this encounter
--- OUTSIDE RECORDS SUMMARY | 2024-04-24 14:52 | XMS_ITS | Encounter Summary ---
Author Organization [facility] Address [address] [place] [address] Phone Care Team Providers Care Market Research Interviewer Name Role Phone Ravi Smith MD Primary Care Provider [phone] Aft, Kianna Machado MD PhD Unavailable [phone] Santaigo Gilbert MD Unavailable [phone] Dmitry Sanderson MD Unavailable [phone] Abbi Ventura MD Unavailable Montse Thompson MD Unavailable [phone] Lela Hardy MD PhD Unavailable [phone] Aft, Kianna Machado MD PhD Unavailable [phone] Trena Obando MD Unavailable [phone] Dat Benito DO Primary Care Provider [phone] Encounter Details Date Type Department Care Team [...] on file Legal 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 Female 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 Gender Identity Not on file Sexual [...] COVID: Suspected 05/02/2023 05/02/2023 05/02/2023 3:37 PM TEACHER ASSOCIATE documented as of this encounter Care Teams Market Research Interviewer Relationship Specialty Start Date End Date Ravi Smith MD PCP - General 11/04/17 09/27/21 Dat Benito DO [address] [place] [address] PCP - General Internal Medicine 09/28/21 Aft, Kianna Machado MD PhD [address] [place] [address] Surgeon Surgical Oncology 11/22/17 Santiago Gilbert MD [address] [place] [address] Grader Meat Gastroenterology 11/22/17 Dmitry Sanderson MD [address] [place] [address] Referring Physician Colon and Rectal Surgery 12/03/1805/06 Abbi Ventura MD [address] [facility] [address] [place] [address] Medical Oncologist/Lottery Manager Medical Oncology 12/03/18 Montse Thompson MD [address] [facility] [address] [place], [place] [address] Consulting Physician Gynecologic Oncology 12/03/18 Lela Hardy MD PhD [address] [place] [address] [address] [place] [address] Radiation Oncologist Radiation Oncology 12/23/18 Aftatiana, Kianna Machado MD PhD [address] [facility] [address] [place] [address] Surgeon Surgical Oncology 12/23/18 09/17/21 Trena Obando MD [address] [place], [place] [address] Consulting Physician Neurology 09/18/21 documented as of this encounter
--- OUTSIDE RECORDS SUMMARY | 2024-04-24 14:52 | XMS_ITS | Encounter Summary ---
Author Organization [facility] Address [address] [place] [address] Phone Care Team Providers Care School Guard Name Role Phone Ravi Smith MD Primary Care Provider [phone] Aft, Kianna Machado MD PhD Unavailable [phone] Santiago Gilbert MD Unavailable [phone] Dmitry Sanderson MD Unavailable [phone] Abbi Ventura MD Unavailable Montse Thompson MD Unavailable Lela Hardy MD PhD Unavailable [phone] Aft, Kianna Machado MD PhD Unavailable [phone] Reason for Visit * Reason Onset Date Comments DME order- 07/08/2019 Encounter Details Date Type Department Care Team (Late st Contact Info) Description 07/08/2019 Documentation [facility] Neuro Sleep [address] 6th [address] [place] [address] Bettina Harper, LYDIA DME order- [...] file Legal Sex Female 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 DME order and all notes faxed to [facility]. [facility] has confirmed that they are in network with her insurance. Patient has been notified that her order is now with [facility] and they will notify her when they have the authorization. Patient also is aware that we are waiting to hear back form Dr Salas concerning her upcoming appt. Patient verbalized understanding of the information provided. NEERING OPERATOR documented in this encounter Plan of Treatment Not on file documented as of this encounter Visit Diagnoses Not on filedocumented in this encounter Care Teams School Guard Relationship Specialty Start Date End Date Ravi Smith MD PCP - General 11/04/17 09/27/21 Aft, Kianna Machado MD PhD [address] [place] [address] Surgeon Surgical Oncology 11/22/17 Santiago Gilbert MD [address] [place] [address] Veterinary Assistant Technician Gastroenterology 11/22/17 Dmitry Sanderson MD [address] [place] [address] Referring Physician Colon and Rectal Surgery 12/03/1805/06 Abbi Ventura MD [address] [place], [place] [id number] Medical Oncologist/Liberal Arts Dean Medical Oncology 12/03/18 Montse Thompson MD [address] [place] [address] Consulting Physician Gynecologic Oncology 12/03/18 Lela Hardy MD PhD [address] [place] [address] Radiation Oncologist Radiation Oncology 12/23/18 Aft, Kianna Machado MD PhD [address] [place], [place] [id number] Surgeon Surgical Oncology 12/23/18 09/17/21 documented as of this encounter
--- OUTSIDE RECORDS SUMMARY | 2024-04-24 14:52 | XMS_ITS | Encounter Summary ---
Author Organization [facility] Address [address] [place] [address] Phone Care Team Providers Care Polymer Tester Name Role Phone Ravi Smith MD Primary Care Provider [phone] Aft, Kianna Machado MD PhD Unavailable [phone] Santiago Gilbert MD Unavailable [phone] Dmitry Sanderson MD Unavailable [phone] Abbi Ventura MD Unavailable Montse Thompson MD Unavailable [phone] Lela Hardy MD PhD Unavailable [phone] Aft, Kianna Machado MD PhD Unavailable [phone] Reason for Referral * Diagnostic Imaging (Routine) - Closed Specialty Diagnoses / Procedures Referred By Contac t Referred To Contact Diagnoses 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) Procedures NM Bone Imaging Whole Body Abbi Ventura MD [address] [place] [address] Phone: tel: fax: [address] [address] Referral ID Status Reason Start Date Expiration Date Visits Re quested Visits Authorized [id number] Closed 06/17/2019 12/26/2020 2 2 CONNECTOR REPAIRER Encounter Details Date Type Department Care Team (Late st Contact Info) Description 06/17/2019 3:30 PM COIL CONNECTOR REPAIRER Office Visit [facility] Oncology [address] [place] [address] Abbi Ventura MD [address] [place] [address] Malignant neoplasm of descending colon (CMS/HCC) (Primary [...] on file Legal Sex Female 1:06 AM COIL CONNECTOR REPAIRER Gender Identity Not on file Sexual Orientation Not on file documented as of this encounter Last Filed Vital Signs Vital Sign Reading Time Taken Comments Blood Pressure 145/79 06/17/2019 2:58 PM COIL CONNECTOR REPAIRER Pulse 85 06/17/2019 2:58 PM COIL CONNECTOR REPAIRER Temperature 36.9 ??C (98.5 ??F) 06/17/2019 2:58 PM CS T Respiratory Rate 14 06/17/2019 2:58 PM COIL CONNECTOR REPAIRER Oxygen Saturation 94% 06/17/2019 2:58 PM COIL CONNECTOR REPAIRER Inhaled Oxygen Concentration - - Weight 106.6 kg (235 lb) 06/17/2019 2:58 PM COIL CONNECTOR REPAIRER Height 175.3 cm (5' 9 ) 06/17/2019 2:58 PM COIL CONNECTOR REPAIRER Body Mass Index 34.7 06/17/2019 2:58 PM COIL CONNECTOR REPAIRER documented in this encounter Ordered Prescriptions Prescription [...] positive and VUS in BRIP1 and NBN. [employer] My risk showed no mutation in MLH [...] ~ 1.4 cm, Grade 3, ER 0, WA 0, HER-2 IHC 0. Partial mastectomy and [...] surgeon in August 2019. Abbi Ventura MD hybrid derivatives trader Division of Oncology Section of Medical Oncology [facility] Finisher completed by using M*Modal Fluency Direct speaking software, therefore, transcriptionvariances may occur. CONNECTOR REPAIRER documented in this encounter Plan of Treatment Not on file documented as of this encounter Results * CEA (12/23/2019 2:47 PM CDT) CEA 1.9 <=5.0 ng/mL [facility] Comment: Interpretative Data: Reference Range: Non-Smokers: 0.0 - 5.0 ng/mL Smokers: 0.0 ? 6.5 ng/mL This test was developed and its performance characteristics determined by the [facility] in a manner consistent with CLIA requirements. This test has not been cleared or approved by the U.S. Food and Drug Administration. Current interpretive data was last revised 2018. Blood specimen (specimen) 12/23/2019 2:47 PM CDT 12/23/2019 7:00 PM CDT us Abbi Ventura MD LAB BLOOD ORDERABLES Final Resul t [facility] Department [place] [address] * (ABNORMAL) Comprehensive metabolic panel (12/23/2019 2:47 PM CDT) Sodium 142 135 - 145 mmol/L [facility] Potassium, pl 4.4 3.3 - 4.9 mmol/L [facility] Chloride 103 97 - 110 mmol/L [facility] CO2 28 22 - 32 mmol/L [facility] Anion gap 11 2 - 15 mmol/L [facility] BUN 21 8 - 25 mg/dL [facility] Creatinine 1.46(H) 0.60 - 1.10 mg/dL [facility] Glucose 95 70 - 199 mg/dL [facility] Comment: [...] 2017. Calcium 9.9 8.5 - 10.3 mg/dL [facility] Bilirubin, total 0.5 0.1 - 1.2 mg/dL [facility] Protein, pl 7.3 6.5 - 8.5 g/dL [facility] Albumin 4.4 3.5 - 5.0 g/dL [facility] Alk phos 85 40 - 130 Units/L [facility] ALT 13 7 - 45 Units/L [facility] AST 25 10 - 45 Units/L [facility] Blood specimen (specimen) 12/23/2019 2:47 PM CDT 12/23/2019 2:54 PM CDT Narrative [facility] - 12/23/2019 7:14 PM CDT stat stat us Abbi Ventura MD LAB BLOOD ORDERABLES Final Resul t [facility] Department [place] [address] * (ABNORMAL) CBC with auto differential (12/23/2019 2:47 PM CDT) WBC 8.1 3.8 - 9.9 K/cumm [facility] Hgb 11.8(L) 11.9 - 15.5 g/dL [facility] Hct 35.9 35.6 - 45.5 % [facility] Plt 175 150 - 400 K/cumm [facility] MPV 10.1 9.1 - 12.3 fL [facility] RBC 3.83(L) 3.90 - 5.20 M/cumm [facility] MCV 93.7 81.3 - 96.4 fL [facility] MCH 30.8 27.1 - 33.3 pg [facility] MCHC 32.9 32.3 - 35.7 g/dL [facility] RDW CV 13.5 11.1 - 14.9 % [facility] RDW SD 46.6 35.7 - 48.1 fL [facility] NRBC abs 0.00 0.00 - 0.01 K/cumm [facility] Blood specimen (specimen) 12/23/2019 2:47 PM CDT 12/23/2019 2:54 PM CDT us Abbi Ventura MD LAB BLOOD ORDERABLES Final Resul t [facility] Department [place] [address] * NM Bone Imaging Whole Body (06/24/2019 12:56 PM COIL CONNECTOR REPAIRER) Anatomical Region Laterality Modality N/A Digital Radiogra phy 06/24/2019 1:23 PM COIL CONNECTOR REPAIRER Impressions 06/24/2019 1:31 PM COIL CONNECTOR REPAIRER No definite scintigraphic evidence of osseous metastatic disease. Dictated by: Meredith Hankins M.D. The radiology attending physician has personally reviewed this study, and had reviewed and/or edited this written report and agrees with it. Electronically signed by: Lela Lainez M.D. Narrative 06/24/2019 1:31 PM COIL CONNECTOR REPAIRER EXAMINATION: ??BONE SCINTIGRAPHY (WHOLE-BODY) DATE OF STUDY: [...] by: Lela Lainez M.D. Abbi Ventura MD [facility] PROCEDURES Final Result * CEA (06/17/2019 2:22 PM COIL CONNECTOR REPAIRER) CEA 2.2 <=5.0 ng/mL [facility] Comment: Interpretative Data: Reference Range: Non-Smokers: 0.0 - 5.0 ng/mL Smokers: 0.0 ? 6.5 ng/mL This test was developed and its performance characteristics determined by the [facility] in a manner consistent with CLIA requirements. This test has not been cleared or approved by the U.S. Food and Drug Administration. Current interpretive data was last revised 2018. Blood specimen (specimen) 06/17/2019 2:22 PM COIL CONNECTOR REPAIRER 06/17/2019 7:06 PM COIL CONNECTOR REPAIRER us Abbi Ventura MD LAB BLOOD ORDERABLES Final Resul t [facility] Department [place] [address] documented in this encounter Visit Diagnoses Diagnosis [...] 12/23/2019 documented in this encounter Care Teams Polymer Tester Relationship Specialty Start Date End Date Ravi Smith MD PCP - General 11/04/17 09/27/21 Aft, Kianna Machado MD PhD [address] [place] [address] Surgeon Surgical Oncology 11/22/17 Santiago Gilbert MD [address] [place] [address] Tester Printed Circuit Boards Gastroenterology 11/22/17 Dmitry Sanderson MD [address] [place] [address] Referring Physician Colon and Rectal Surgery 12/03/1805/06 Abbi Ventura MD [address] [place] [address] Medical Oncologist/Sample Dye Mixer Medical Oncology 12/03/18 Montse Thompson MD [address] [place] [address] Consulting Physician Gynecologic Oncology 12/03/18 Lela Hardy MD PhD [address] [place] [address] Radiation Oncologist Radiation Oncology 12/23/18 Aft, Kianna Machado MD PhD [address] [place] [address] Surgeon Surgical Oncology 12/23/18 09/17/21 documented as of this encounter
--- OUTSIDE RECORDS SUMMARY | 2024-04-24 14:52 | XMS_ITS | Encounter Summary ---
Author Organization [facility] Healthcare Address [address] [place] [address] Care Team Providers Care Practice Or Student Teacher Name Role Phone Ravi Smith MD Primary Care Provider [phone] Aft, Kianna Machado MD PhD Unavailable [phone] Santiago Gilbert MD Unavailable [phone] Dmitry Sanderson MD Unavailable [phone] Abbi Ventura MD Unavailable Montse Thompson MD Unavailable [phone] Lela Hardy MD PhD Unavailable Aft, Kianna Machado MD PhD Unavailable [phone] Encounter Details Date Type Department Care Team [...] on file Legal Sex Female 1:06 AM ACETYLENE TORCH BURNER Gender Identity Not on file Sexual [...] on filedocumented in this encounter Care Teams Practice Or Student Teacher Relationship Specialty Start Date End Date Ravi Smith MD PCP - General 11/04/17 09/27/21 Aft, Kianna Machado MD PhD [address] [place] [address] Surgeon Surgical Oncology 11/22/17 Santiago Gilbert MD [address] [place] [address] Bituminous Distributor Operator Gastroenterology 11/22/17 Dmitry Sanderson MD [address] [place] [address] Referring Physician Colon and Rectal Surgery 12/03/1805/06 Abbi Ventura MD [address] [place] [address] [address] [place] [address] Medical Oncologist/Social Work Associate Medical Oncology 12/03/18 Montse Thompson MD [address] [place] [address] [address] [place] [address] Consulting Physician Gynecologic Oncology 12/03/18 Lela Hardy MD PhD [address] [place] [address] [address] [place] [address] Radiation Oncologist Radiation Oncology 12/23/18 Aft, Kianna Machado MD PhD [address] [place] [address] [address] [place] [address] Surgeon Surgical Oncology 12/23/18 09/17/21 documented as of this encounter
--- OUTSIDE RECORDS SUMMARY | 2024-04-24 14:52 | XMS_ITS | Encounter Summary ---
Author Organization [facility] Healthcare Address [address] [place] [address] Care Team Providers Care Lavender Farm Worker Name Role Phone Ravi Smith MD Primary Care Provider [phone] Aft, Kianna Machado MD PhD Unavailable [phone] Santiago Gilbert MD Unavailable [phone] Dmitry Sanderson MD Unavailable [phone] Abbi Ventura MD Unavailable Montse Thompson MD Unavailable [phone] Lela Hardy MD PhD Unavailable [phone] Aft, Kianna Machado MD PhD Unavailable [phone] Reason for Referral * Diagnostic Imaging (Routine) - Closed Specialty Diagnoses / Procedures Referred By Vijaya simpson Referred To Contact Diagnoses HX: breast cancer Procedures Diagnostic Mammogram Bilateral W Jasper Haley [facility] Phone: tel: fax: [address] [address] Referral ID Status Reason Start Date Expiration Date Visits Re quested Visits Authorized [id number] Closed 04/23/2019 11/01/2020 1 1 Reason for Visit * Diagnostic Imaging (Routine) - Closed Specialty Diagnoses / Procedures Referred By Contac t Referred To Contact Diagnoses HX: breast cancer Procedures Diagnostic Mammogram Bilateral W Jasper Haley [facility] Phone: tel: fax: [address] [address] Referral ID Status Reason Start Date Expiration Date Visits Re quested Visits Authorized [id number] Closed 04/23/2019 11/01/2020 1 1 Encounter Details Date Type Department Care Team (Latest Contact Info) Description 08/17/2019 9:50 AM CDT Hospital Encounter [facility] [address] [place] [address] Aft, Kianna Machado MD PhD [address] [place] [address] Jasper Swanson CNS [address] [address] HX: breast cancer Discharge Disposition: Discharge to [...] file Legal Sex Female 1:06 AM ACCOUNTS RECEIVABLE COLLECTOR Gender Identity Not on file Sexual Orientation [...] suspicious change involving either breast. Jasper Swanson HOG DROPPER IMG MAMMO PROCEDURES Final R esult documented in this encounter Visit Diagnoses Diagnosis HX: breast cancer Personal history of malignant neoplasm of breast documented in this encounter Care Teams Lavender Farm Worker Relationship Specialty Start Date End Date Ravi Smith MD PCP - General 11/04/17 09/27/21 Aft, Kianna Machado MD PhD [address] [place] [address] Surgeon Surgical Oncology 11/22/17 Santiago Gilbert MD [address] [place] [address] Labor Delivery Specialist Gastroenterology 11/22/17 Dmitry Sanderson MD [address] [place] [address] Referring Physician Colon and Rectal Surgery 12/03/1805/06 Abbi Ventura MD [address] [place] [address] Medical Oncologist/Spa Concierge Medical Oncology 12/03/18 Montse Thompson MD [address] [place] [address] Consulting Physician Gynecologic Oncology 12/03/18 Lela Hardy MD PhD [address] [place] [address] Radiation Oncologist Radiation Oncology 12/23/18 Aft, Kianna Machado MD PhD [address] [place] [address] Surgeon Surgical Oncology 12/23/18 09/17/21 documented as of this encounter
--- OUTSIDE RECORDS SUMMARY | 2024-04-24 14:52 | XMS_ITS | Encounter Summary ---
Author Organization [facility] Address [address] [place] [address] Phone Care Team Providers Care Mirror Installer Name Role Phone Ravi Smith MD Primary Care Provider [phone] Aft, Kianna Machado MD PhD Unavailable [phone] Santiago Gilbert MD Unavailable [phone] Dmitry Sanderson MD Unavailable [phone] Abbi Ventura MD Unavailable Montse Thompson MD Unavailable Lela Hardy MD PhD Unavailable [phone] Aft, Kianna Machado MD PhD Unavailable [phone] Encounter Details Date Type Department Care Team (Late st Contact Info) Description 06/09/2019 Orders Only [facility] Oncology [address] [place] [address] Abbi Ventura MD [address] [place] [address] Malignant neoplasm of upper-inner quadrant of left [...] on file Legal Sex Female 1:06 AM AUCTION BLOCK CLERK Gender Identity Not on file Sexual Orientation Not on file documented as of this encounter Plan of Treatment Not on file documented as of this encounter Results * (ABNORMAL) Comprehensive metabolic panel (06/17/2019 2:22 PM AUCTION BLOCK CLERK) Sodium 140 135 - 145 mmol/L [facility] Potassium, pl 4.6 3.3 - 4.9 mmol/L [facility] Chloride 100 97 - 110 mmol/L [facility] CO2 28 22 - 32 mmol/L [facility] Anion gap 12 2 - 15 mmol/L [facility] BUN 21 8 - 25 mg/dL [facility] Creatinine 1.15(H) 0.60 - 1.10 mg/dL [facility] Glucose 137 70 - 199 mg/dL [facility] Comment: Interpretive Data Fasting glucose >/= [...] Calcium 10.0 8.5 - 10.3 mg/dL [facility] Bilirubin, total 0.5 0.1 - 1.2 mg/dL [facility] Protein, pl 7.3 6.5 - 8.5 g/dL [facility] Albumin 4.3 3.5 - 5.0 g/dL [facility] Alk phos 92 40 - 130 Units/L [facility] ALT 13 7 - 45 Units/L [facility] AST 23 10 - 45 Units/L [facility] Blood specimen (specimen) 06/17/2019 2:22 PM AUCTION BLOCK CLERK 06/17/2019 2:24 PM AUCTION BLOCK CLERK Narrative [facility] - 06/17/2019 2:47 PM AUCTION BLOCK CLERK stat stat us Abbi Ventura MD LAB BLOOD ORDERABLES Final Resul t Performing Organization Address [facility] Co de Phone Number [facility] [place] [address] * Magnesium (06/17/2019 2:22 PM AUCTION BLOCK CLERK) [facility] Magnesium 1.9 1.4 - 2.5 mg/dL [facility] Blood specimen (specimen) 06/17/2019 2:22 PM AUCTION BLOCK CLERK 06/17/2019 2:24 PM AUCTION BLOCK CLERK Abbi Ventura MD LAB BLOOD ORDERABLES Final Resul t Performing Organization Address [facility] de Phone Number [facility] [place] [address] * (ABNORMAL) CBC with auto differential (06/17/2019 2:22 PM AUCTION BLOCK CLERK) [facility] WBC 6.9 3.8 - 9.9 K/cumm [facility] Hgb 11.6(L) 11.9 - 15.5 g/dL [facility] Hct 34.9(L) 35.6 - 45.5 % [facility] Plt 160 150 - 400 K/cumm [facility] MPV 9.1 9.1 - 12.3 fL [facility] RBC 3.79(L) 3.90 - 5.20 M/cumm [facility] MCV 92.1 81.3 - 96.4 fL [facility] MCH 30.6 27.1 - 33.3 pg [facility] MCHC 33.2 32.3 - 35.7 g/dL [facility] RDW CV 13.4 11.1 - 14.9 % [facility] RDW SD 45.4 35.7 - 48.1 fL [facility] NRBC abs 0.00 0.00 - 0.01 K/cumm [facility] Blood specimen (specimen) 06/17/2019 2:22 PM AUCTION BLOCK CLERK 06/17/2019 2:24 PM AUCTION BLOCK CLERK Abbi Ventura MD LAB BLOOD ORDERABLES Final Resul t Performing Organization Address City/[facility]/ZIP Co de Phone Number [facility] Department [place] [address] * Phosphorus (06/17/2019 2:22 PM AUCTION BLOCK CLERK) Phosphorus, pl 4.1 2.3 - 4.5 mg/dL [facility] Blood specimen (specimen) 06/17/2019 2:22 PM AUCTION BLOCK CLERK 06/17/2019 2:24 PM AUCTION BLOCK CLERK Abbi Ventura MD LAB BLOOD ORDERABLES Final Resul t Performing Organization Address City/[facility] Co de Phone Number 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) Malignant neoplasm of descending colon documented in this encounter Care Teams Mirror Installer Relationship Specialty Start Date End Date Ravi Smith MD PCP - General 11/04/17 09/27/21 Aft, Kianna Machado MD PhD [address] [place] [address] Surgeon Surgical Oncology 11/22/17 Santiago Gilbert MD [address] [place] [address] Quarry Supervisor Open Pit Gastroenterology 11/22/17 Dmitry Sanderson MD [address] [place] [address] Referring Physician Colon and Rectal Surgery 12/03/1805/06 Abbi Ventura MD [address] [place] [address] Medical Oncologist/Process Development Chemist Medical Oncology 12/03/18 Montse Thompson MD [address] [facility] [address] [place] [address] Consulting Physician Gynecologic Oncology 12/03/18 Lela Hardy MD PhD [address] [facility] [address] [place] [address] Radiation Oncologist Radiation Oncology 12/23/18 Aft, Kianna Machado MD PhD [address] [facility] [address] [place] [address] Surgeon Surgical Oncology 12/23/18 09/17/21 documented as of this encounter
--- OUTSIDE RECORDS SUMMARY | 2024-04-24 14:52 | XMS_ITS | Encounter Summary ---
Author Organization [facility] Address [address] [place] [address] Phone Care Team Providers Care Information Technology Audit Manager Name Role Phone Hugo Smith MD Primary Care Provider [phone] Aft, Kianna Machado MD PhD Unavailable [phone] Santiago Gilbert MD Unavailable [phone] Dmitry Sanderson MD Unavailable [phone] Abbi Ventura MD Unavailable Montse Thompson MD Unavailable Lela Hardy MD PhD Unavailable [phone] Aft, Kianna Machado MD PhD Unavailable [phone] Reason for Visit * Reason Comments Sleep Apnea Encounter Details Date Type Department Care Team (Late st Contact Info) Description 11/09/2019 4:00 PM CDT Office Visit [facility] Pulmonary [address] [facility] 6th Floor [address] [place] [address] Mary Garcia MD [address] [place] [address] VIOLETTE (obstructive sleep apnea) (Primary [...] file Legal Sex Female 1:06 AM CUSTOMER OPERATIONS ASSOCIATE Gender Identity Not on file Sexual [...] No clubbing, cyanosis, or edema. DATA: 1. Keyes Sleepiness Scale is 5/24. 2. Compliance download [...] - 11/11/2019 01:26 PM Mary Garcia M.D. insurance risk manager TR/an cc: HUGO SMITH MD [address] [place] [address] / FELICITY VINCENT MD [address] [facility] [address], [place] [address] documented in this encounter Plan of Treatment [...] 10/26/2019 added in this encounter Care Teams Information Technology Audit Manager Relationship Specialty Start Date End Date Hugo Smith MD PCP - General 11/04/17 09/27/21 Aft, Kianna Machado MD PhD [address] [place] [address] Surgeon Surgical Oncology 11/22/17 Santiago Gilbert MD [address] [place] [address] Electronics Tech Gastroenterology 11/22/17 Dmitry Sanderson MD [address] [place] [address] Referring Physician Colon and Rectal Surgery 12/03/1805/06 Abbi Ventura MD [address] [place] [address] [address] [place] [address] Medical Oncologist/Furniture Removalist Medical Oncology 12/03/18 Montse Thompson MD [address] [place] [address] [address] [place] [address] Consulting Physician Gynecologic Oncology 12/03/18 Lela Hardy MD PhD [address] [place] [address] [address] [place] [address] Radiation Oncologist Radiation Oncology 12/23/18 Aft, Kianna Machado MD PhD [address] [place] [address] [address] [place] [address] Surgeon Surgical Oncology 12/23/18 09/17/21 documented as of this encounter
--- OUTSIDE RECORDS SUMMARY | 2024-04-24 14:52 | XMS_ITS | Encounter Summary ---
Author Organization [facility] Healthcare Address [address] [place] [address] Care Team Providers Care Pelletizer Operator Name Role Phone Ravi Smith MD Primary Care Provider [phone] Aft, Kianna Machado MD PhD Unavailable Santiago Gilbert MD Unavailable Dmitry Sanderson MD Unavailable [phone] Abbi Ventura MD Unavailable Montse Thompson MD Unavailable [phone] Lela Hardy MD PhD Unavailable [phone] Aft, Kianna Machado MD PhD Unavailable [phone] Trena Obando MD Unavailable [phone] Dat Benito DO Primary Care Provider [phone] Encounter Details Date Type Department Care Team (Late st Contact Info) Description 08/17/2019 Telephone [facility] Radiation Oncology at [facility] [address] [place] [address] Diana Crisostomo MA Social History Tobacco Use [...] on file Legal Sex Female 1:06 AM MANPOWER DEVELOPMENT ADVISOR Gender Identity Not on file Sexual [...] COVID: Suspected 05/02/2023 05/02/2023 05/02/2023 3:37 PM MANPOWER DEVELOPMENT ADVISOR documented as of this encounter Care Teams Pelletizer Operator Relationship Specialty Start Date End Date Ravi Smith MD PCP - General 11/04/17 09/27/21 Dat Benito DO [address] [place] [address] PCP - General Internal Medicine 09/28/21 Aft, Kianna Machado MD PhD [address] [place] [address] Surgeon Surgical Oncology 11/22/17 Santiago Gilbert MD [address] [place] [address] Mainframe Consultant Gastroenterology 11/22/17 Dmitry Sanderson MD [address] [place] [address] Referring Physician Colon and Rectal Surgery 12/03/1805/06 Abbi Ventura MD [address] [facility] [address] [place] [address] Medical Oncologist/Biomass Production Manager Medical Oncology 12/03/18 Montse Thompson MD [address] [facility] [address] [place] [address] Consulting Physician Gynecologic Oncology 12/03/18 Lela Hardy MD PhD [address] [place] [address] [address] [place] [address] Radiation Oncologist Radiation Oncology 12/23/18 Aftatiana, Kianna Machado MD PhD [address] [facility] [address] [place] [address] Surgeon Surgical Oncology 12/23/18 09/17/21 Trena Obando MD [address] [place], [place] [address] Consulting Physician Neurology 09/18/21 documented as of this encounter
--- OUTSIDE RECORDS SUMMARY | 2024-04-24 14:52 | XMS_ITS | Encounter Summary ---
Author Organization [facility] Healthcare Address [address] [place] [address] Care Team Providers Care Mainspring Barrel Assembly Cleaner Name Role Phone Ravi Smith MD Primary Care Provider [phone] Aft, Kianna Machado MD PhD Unavailable Santiago Gilbert MD Unavailable [phone] Dmitry Sanderson MD Unavailable [phone] Abbi Ventura MD Unavailable Montse Thompson MD Unavailable Lela Hardy MD PhD Unavailable [phone] Aft, Kianna Machado MD PhD Unavailable [phone] Encounter Details Date Type Department Care Team (Late st Contact Info) Description 08/17/2019 Telephone [facility] Radiation Oncology at [facility] [address] [place] [address] Diana Crisostomo MA Social History Tobacco Use [...] on file Legal Sex Female 1:06 AM ACCOUNTING MACHINE OPERATOR Gender Identity Not on file [...] on filedocumented in this encounter Care Teams Mainspring Barrel Assembly Cleaner Relationship Specialty Start Date End Date Ravi Smith MD PCP - General 11/04/17 09/27/21 Aft, Kianna Machado MD PhD [address] [place] [address] Surgeon Surgical Oncology 11/22/17 Santiago Gilbert MD [address] [place] [address] Pocket Setter Lockstitch Gastroenterology 11/22/17 Dmitry Sanderson MD [address] [place] [address] Referring Physician Colon and Rectal Surgery 12/03/1805/06 Abbi Ventura MD [address] [place] [address] [address] [place] [address] Medical Oncologist/Litigation Services Manager Medical Oncology 12/03/18 Montse Thompson MD [address] [facility] [address] [place], [place] [address] Consulting Physician Gynecologic Oncology 12/03/18 Lela Hardy MD PhD [address] [place] [address] [address] [place], [place] [address] Radiation Oncologist Radiation Oncology 12/23/18 Aft, Kianna Machado MD PhD [address] [place] [address] [address] [place], [place] [address] Surgeon Surgical Oncology 12/23/18 09/17/21 documented as of this encounter
--- OUTSIDE RECORDS SUMMARY | 2024-04-24 14:52 | XMS_ITS | Encounter Summary ---
Author Organization [facility] Address [address] [place] [address] Phone Care Team Providers Care Upset Welding Machine Operator Name Role Phone Ravi Smith MD Primary Care Provider [phone] Aft, Kianna Machado MD PhD Unavailable [phone] Santiago Gilbert MD Unavailable [phone] Dmitry Sanderson MD Unavailable [phone] Abbi Ventura MD Unavailable Montse Thompson MD Unavailable [phone] Lela Hardy MD PhD Unavailable [phone] Aft, Kianna Machado MD PhD Unavailable [phone] Encounter Details Date Type Department Care Team (Late st Contact Info) Description 06/08/2019 Documentation [facility] Neuro Sleep [address] [facility] 6th Floor [address] [place] [address] Jessica Johnston RMA Social History [...] file Legal Sex Female 1:06 AM AUTO SERVICE REPRESENTATIVE Gender Identity Not on file Sexual Orientation Not on file documented as of this encounter Progress Notes * Jessica Sherman RMA - 06/08/2019 10:26 AM CST Received signed and dated order for cpap and supplies pressure set to 4-[address] Garcia. Order placed in [facility] and faxed t [facility] SERVICE REPRESENTATIVE documented in this encounter Plan of Treatment Not on file documented as of this encounter Visit Diagnoses Not on filedocumented in this encounter Care Teams Upset Welding Machine Operator Relationship Specialty Start Date End Date Ravi Smith MD PCP - General 11/04/17 09/27/21 Aft, Kianna Machado MD PhD [address] [place] [address] Surgeon Surgical Oncology 11/22/17 Santiago Gilbert MD [address] [place] [address] Flat Examiner Gastroenterology 11/22/17 Dmitry Sanderson MD [address] [place] [address] Referring Physician Colon and Rectal Surgery 12/03/1805/06 Abbi Ventura MD [address] [place] [address] [address] [place] [address] Medical Oncologist/Operational Trainer Medical Oncology 12/03/18 Montse Thompson MD [address] [facility] [address] [place], [place] [address] Consulting Physician Gynecologic Oncology 12/03/18 Lela Hardy MD PhD [address] [facility] [address] [place] [address] Radiation Oncologist Radiation Oncology 12/23/18 Aft, Kianna Machado MD PhD [address] [facility] [address] [place] [address] Surgeon Surgical Oncology 12/23/18 09/17/21 documented as of this encounter
--- OUTSIDE RECORDS SUMMARY | 2024-04-24 14:52 | XMS_ITS | Encounter Summary ---
Author Organization [facility] Address [address] [place] [address] Phone Care Team Providers Care Pc Maintenance Technician Name Role Phone Ravi Smith MD Primary Care Provider [phone] Aft, Kianna Machado MD PhD Unavailable [phone] Santiago Gilbert MD Unavailable [phone] Dmitry Sanderson MD Unavailable [phone] Abbi Ventura MD Unavailable Montse Thompson MD Unavailable [phone] Lela Hardy MD PhD Unavailable [phone] Aft, Kianna Machado MD PhD Unavailable Reason for Visit * Reason Comments Follow-up Encounter Details Date Type Department Care Team (Late st Contact Info) Description 06/04/2019 9:35 AM MEDICAL SONOGRAPHER Office Visit [facility] Surgery [address] [facility] 5th [place] [address] [place] [address] Jessica Swanson, [facility] [address] [address] History of breast cancer (Primary Dx); BRCA2 [...] file Legal Sex Female 1:06 AM MEDICAL SONOGRAPHER Gender Identity Not on file Sexual Orientation Not on file documented as of this encounter Last Filed Vital Signs Vital Sign Reading Time Taken Comments Blood Pressure - - Pulse - - Temperature - - Respiratory Rate - - Oxygen Saturation - - Inhaled Oxygen Concentration - - Weight 108.4 kg (239 lb) 06/04/2019 9:31 AM MEDICAL SONOGRAPHER Height 175.3 cm (5' 9 ) 06/04/2019 9:31 AM MEDICAL SONOGRAPHER Body Mass Index 35.29 06/04/2019 9:31 AM MEDICAL SONOGRAPHER documented in this encounter Progress Notes * Jessica Swanson, CARPENTER FOREMAN - 06/04/2019 9:35 AM CST Section of Surgical Oncology and Endocrinology [facility] of [address], [address], [place] [address] - NAME: Aleah Gerber : 1955 DATE: [...] on 11/05/2017 which demonstrated invasive ductal carcinoma, ER/UT negative, HER 2 negative. She underwent genetic [...] At risk for sleep apnea, Breast cancer ([facility]) (2017), Breast cancer ([facility]) (2017), Colon cancer ([facility]), Colon cancer ([facility]) (2017), Colon polyps, COPD (chronic obstructive pulmonary disease) ([facility]), Depression, DVT (deep veinthrombosis) in (05/2017), DVT (deep venous thrombosis) ([facility]) (05/2018), Former smoker, History of ileus (12/2017), Hypercholesteremia, Hypertension, Leg swelling, Lower extremity edema,Memory loss, Mucositis, Obesity, Personal history of other medical treatment, Personal history of other medical treatment, SOB (shortness of breath), SOB (shortness of breath) (2018), TIA (transient i schemic attack) (2007), Type 2 diabetes mellitus ([facility]), and Vascular disease. She also has no past medical history of Acute respiratory failure requiring reintubation ([facility]), Awareness under anesthesia, Delayed emergence from general anesthesia, Diabetes mellitus type I ([facility]), Hard to intubate, Malignant hyperthermia, Motion sickness, [...] Breast Needle Localization partial mastectomy (L), Biopsy [place] Lymph Node With Lymphoscintigraphy (L), Insertion Port [...] on phone: None Gets together: None Attends synagogue service: None Active member of club or [...] to call with questions. Jessica Swanson, MSN, PNEUMATIC HOIST OPERATOR- Endocrine and Oncology Surgery I have reviewed the history and physical, social history and surgical history and I concur with thefindings. Kianna Bunch M.D. physical therapy resident, Endocrine Oncology surgery Cosigned by Kianna Bunch MD PhD at 06/04/2019 10:33 AM MEDICAL SONOGRAPHER CAL SONOGRAPHER CAL SONOGRAPHER documented in this encounter Plan of Treatment Not on file documented as of this encounter Visit Diagnoses Diagnosis History of breast cancer- Primary Personal history of malignant neoplasm of breast BRCA2 gene mutation positive in female documented in this encounter Care Teams Pc Maintenance Technician Relationship Specialty Start Date End Date Ravi Smith MD PCP - General 11/04/17 09/27/21 AileentKianna MD PhD [address] [place] [address] Surgeon Surgical Oncology 11/22/17 Santiago Gilbert MD [address] [place] [address] Stemhole Borer Gastroenterology 11/22/17 Dmitry Sanderson MD [address] [place] [address] Referring Physician Colon and Rectal Surgery 12/03/1805/06 Abbi Ventura MD [address] [place] [address] [address] [place] [address] Medical Oncologist/Patrol Man Medical Oncology 12/03/18 Montse Thompson MD [address] [place] [address] Consulting Physician Gynecologic Oncology 12/03/18 Lela Hardy MD PhD [address] [place] [address] Radiation Oncologist Radiation Oncology 12/23/18 Aft, Kianna Machado MD PhD [address] [facility] [address] [place], [place] [address] Surgeon Surgical Oncology 12/23/18 09/17/21 documented as of this encounter
--- OUTSIDE RECORDS SUMMARY | 2024-04-24 14:52 | XMS_ITS | Encounter Summary ---
Author Organization [facility] Address [address] [place] [address] Phone Care Team Providers Care Produce Runner Name Role Phone Ravi Smith MD Primary Care Provider [phone] Aft, Kianna Machado MD PhD Unavailable [phone] Santiago Gilbert MD Unavailable [phone] Dmitry Sanderson MD Unavailable [phone] Abbi Ventura MD Unavailable Montse Thompson MD Unavailable [phone] Lela Hardy MD PhD Unavailable [phone] Aft, Kianna Machado MD PhD Unavailable [phone] Encounter Details Date Type Department Care Team (Late st Contact Info) Description 09/08/2019 Telephone [facility] Neuro Sleep [address] [facility] 6th Floor [address] [place] [address] Rosa Kincaid, RPS Social History [...] on file Legal Sex Female 1:06 AM CENTRIFUGAL WAX MOLDER Gender Identity Not on file Sexual [...] filedocumented in this encounter Care Teams Produce Runner Relationship Specialty Start Date End Date Ravi Smith MD PCP - General 11/04/17 09/27/21 Aft, Kianna Machado MD PhD [address] [place] [address] Surgeon Surgical Oncology 11/22/17 Santiago Gilbert MD [address] [place] [address] Ferry Engineer Gastroenterology 11/22/17 Dmitry Sanderson MD [address] [place] [address] Referring Physician Colon and Rectal Surgery 12/03/1805/06 Abbi Ventura MD [address] [place] [address] [address] [place] [address] Medical Oncologist/Real Estate Professor Medical Oncology 12/03/18 Montse Thompson MD [address] [facility] [address] [place] [address] Consulting Physician Gynecologic Oncology 12/03/18 Lela Hardy MD PhD [address] [place] [address] [address] [place] [address] Radiation Oncologist Radiation Oncology 12/23/18 Aft, Kianna Machado MD PhD [address] [place] [address] [address] [place] [address] Surgeon Surgical Oncology 12/23/18 09/17/21 documented as of this encounter
--- OUTSIDE RECORDS SUMMARY | 2024-04-24 14:52 | XMS_ITS | Encounter Summary ---
Author Organization [facility] Address [address] [place] [address] Phone Care Team Providers Care Life Specialist Name Role Phone Ravi Smith MD Primary Care Provider [phone] Aft, Kianna Machado MD PhD Unavailable [phone] Santiago Gilbert MD Unavailable [phone] Dmitry Sanderson MD Unavailable [phone] Abbi Ventura MD Unavailable Montse Thompson MD Unavailable [phone] Lela Hardy MD PhD Unavailable [phone] Aft, Kianna Machado MD PhD Unavailable [phone] Reason for Visit * Reason Onset Date Comments DME 07/03/2019 Encounter Details Date Type Department Care Team (Late st Contact Info) Description 07/03/2019 Documentation [facility] Neuro Sleep [address] [place] [address] Bettina Harper, RN DME Social History Tobacco [...] on file Legal Sex Female 1:06 AM OB/GYN DOCTOR Gender Identity Not on file Sexual Orientation Not on file documented as of this encounter Progress Notes * Bettina Harper RN - 07/03/2019 10:55 AM CST Received a call from [email or web address]@ [facility] and they are unable to obtain an authorization from the insurance as the insurance company requires the DME to be located in [place]. Shannon will send the order to [facility] and follow up for set up. Notified the patient that she will receive a phone call from [facility] for set up and that our [facility] Rep will follow up and make sure she is set up. Patient verbalized understanding of the information provided. /GYN DOCTOR documented in this encounter Plan of Treatment Not on file documented as of this encounter Visit Diagnoses Not on filedocumented in this encounter Care Teams Life Specialist Relationship Specialty Start Date End Date Ravi Smith MD PCP - General 11/04/17 09/27/21 Aft, Kianna Machado MD PhD [address] [place] [address] Surgeon Surgical Oncology 11/22/17 Santiago Gilbert MD [address] [place] [address] Mannequin Maker Gastroenterology 11/22/17 Dmitry Sanderson MD [address] [place] [address] Referring Physician Colon and Rectal Surgery 12/03/1805/06 Abbi Ventura MD [address] [facility] [address] [place] [address] Medical Oncologist/Communications Tower Climber Medical Oncology 12/03/18 Montse Thompson MD [address] [facility] [address] [place], [place] [address] Consulting Physician Gynecologic Oncology 12/03/18 Lela Hardy MD PhD [address] [place] [address] [address] [place] [address] Radiation Oncologist Radiation Oncology 12/23/18 Aft, Kianna Machado MD PhD [address] [facility] [address] [place] [address] Surgeon Surgical Oncology 12/23/18 09/17/21 documented as of this encounter
--- OUTSIDE RECORDS SUMMARY | 2024-04-24 14:52 | XMS_ITS | Encounter Summary ---
Author Organization [facility] Address [address] [place] [address] Phone Care Team Providers Care Quarter Seamer Name Role Phone Ravi Smith MD Primary Care Provider [phone] Aft, Kianna Machado MD PhD Unavailable [phone] Santiago Gilbert MD Unavailable Dmitry Sanderson MD Unavailable [phone] Abbi Ventura MD Unavailable Montse Thompson MD Unavailable [phone] Lela Hardy MD PhD Unavailable [phone] Aft, Kianna Machado MD PhD Unavailable [phone] Encounter Details Date Type Department Care Team (Late st Contact Info) Description 06/03/2019 Telephone [facility] Oncology [address] [place] [address] Fatemeh Zarate, RN Social History Tobacco Use [...] file Legal Sex Female 1:06 AM RN INTERNAL MEDICINE Gender Identity Not on file Sexual Orientation Not on file documented as of this encounter Miscellaneous Notes * Telephone Encounter - Fatemeh Zarate RN - 06/03/2019 12:35 PM CST Hgb A1C added to lab work for 07/02/19. Will fax results to Dr. Smith. DB ----- Message from Aleah Gerber sent at 06/03/2019 9:04 AM RN INTERNAL MEDICINE ----- Regarding: RE: Non-Urgent Medical Question Contact: Yes. Dr [facility] [phone] Thank you. ----- Message ----- From: Nurse Fatemeh Maurer Sent: 06/03/2019 8:48 AM RN INTERNAL MEDICINE To: Aleah Gerber Subject: RE: Non-Urgent Medical Question Is this being requested by one of your physicians? I am happy to add it but who is the provider requesting it per I would need to forward the results to them as we don't manage diabetes. Fatemeh ----- Message ----- From: Aleah Gerber Sent: 06/03/2019 12:16 AM RN INTERNAL MEDICINE To: Abbi Ventura MD Subject: RE: Non-Urgent Medical Question When I am there for blood draw on Jul 02, is it possible to have a1c level checked? It would help me from having to have it done separately. Thanks INTERNAL MEDICINE INTERNAL MEDICINE documented in this encounter Plan of Treatment Not on file documented as of this encounter Visit Diagnoses Not on filedocumented in this encounter Care Teams Quarter Seamer Relationship Specialty Start Date End Date Ravi Smith MD PCP - General 11/04/17 09/27/21 Aft, Kianna Machado MD PhD [address] [place] [address] Surgeon Surgical Oncology 11/22/17 Santaigo Gilbert MD [address] [place] [address] Title Investigator Gastroenterology 11/22/17 Dmitry Sanderson MD [address] [place] [address] Referring Physician Colon and Rectal Surgery 12/03/1805/06 Abbi Ventura MD [address] [place] [address] [address] [place] [address] Medical Oncologist/Bioinformatics Team Member Medical Oncology 12/03/18 Montse Thompson MD [address] [place] [address] [address] [place] [address] Consulting Physician Gynecologic Oncology 12/03/18 Lela Hardy MD PhD [address] [place] [address] [address] [place] [address] Radiation Oncologist Radiation Oncology 12/23/18 Aft, Kianna Machado MD PhD [address] [place] [address] [address] [place] [address] Surgeon Surgical Oncology 12/23/18 09/17/21 documented as of this encounter
--- OUTSIDE RECORDS SUMMARY | 2024-04-24 14:52 | XMS_ITS | Encounter Summary ---
Author Organization [facility] Address [address] [place] [address] Phone Care Team Providers Care Foreign Language Teacher Name Role Phone Ravi Smith MD Primary Care Provider [phone] Aft, Kianna Machado MD PhD Unavailable [phone] Santiago Gilbert MD Unavailable [phone] Dmitry Sanderson MD Unavailable [phone] Abbi Ventura MD Unavailable Montse Thompson MD Unavailable [phone] Lela Hardy MD PhD Unavailable [phone] Aft, Kianna Machado MD PhD Unavailable Encounter Details Date Type Department Care Team (Late st Contact Info) Description 11/02/2019 Telephone [facility] Surgery [address] [facility] 5th [place] [address] [place] [address] Evon Barahona MD [address] [address] Social History Tobacco Use Types [...] on file Legal Sex Female 1:06 AM DEHYDROGENATION OPERATOR Gender Identity Not on file Sexual [...] on filedocumented in this encounter Care Teams Foreign Language Teacher Relationship Specialty Start Date End Date Ravi Smith MD PCP - General 11/04/17 09/27/21 Aft, Kianna Machado MD PhD [address] [place] [address] Surgeon Surgical Oncology 11/22/17 Santiago Gilbert MD [address] [place] [address] Automobile Mechanic Assistant Gastroenterology 11/22/17 Dmitry Sanderson MD [address] [place] [address] Referring Physician Colon and Rectal Surgery 12/03/1805/06 Abbi Ventura MD [address] [place] [address] [address] [place] [address] Medical Oncologist/Export Manager Medical Oncology 12/03/18 Montse Thompson MD [address] [facility] [address] [place] [address] Consulting Physician Gynecologic Oncology 12/03/18 Llea Hardy MD PhD [address] [place] [address] [address] [place] [address] Radiation Oncologist Radiation Oncology 12/23/18 Aft, Kianna Machado MD PhD [address] [place] [address] [address] [place] [address] Surgeon Surgical Oncology 12/23/18 09/17/21 documented as of this encounter
--- OUTSIDE RECORDS SUMMARY | 2024-04-24 14:52 | XMS_ITS | Encounter Summary ---
Author Organization [facility] Address [address] [place] [address] Care Team Providers Care Information Security Engineer Name Role Phone Ravi Smith MD Primary Care Provider [phone] Aft, Kianna Machado MD PhD Unavailable [phone] Santiago Gilbert MD Unavailable [phone] Dmitry Sanderson MD Unavailable [phone] Abbi Ventura MD Unavailable Montse Thompson MD Unavailable Lela Hardy MD PhD Unavailable Aft, Kianna Machado MD PhD Unavailable Reason for Visit * Reason Comments Follow-up Encounter Details Date Type Department Care Team (Late st Contact Info) Description 09/16/2019 11:00 AM CDT Telemedicine [facility] Radiation Oncology at [facility] [address] [place] [address] Lela Hardy MD PhD [address] [place] [address] Nasreen Hagan NP [address] [place] [address] Encounter for follow-up examination after completed treatment [...] on file Legal Sex Female 1:06 AM PACKAGING TECH Gender Identity Not on file Sexual Orientation Not on file documented as of this encounter Patient Instructions * Patient Instructions* Nasreen Hagan, KAM - 09/16/2019 11:00 AM CDT Continue your breast self exams on a monthly basis. Please continue to apply VaniCream or Chowchilla Butter daily to the treated breast. Avoid [...] often with soap and water, or alcohol-based hand-enterprise data architect - For the most current and up to date information, we would recommend accessing the following link for the Centers for Disease Control (CDC): www.cdc.gov/coronavirus For patients who are starting radiation therapy or currently receiving radiation: - If you have any symptoms such as fever, cough, shortness of breath, or any other flu-like symptoms, please call the hospital oil field operator at [phone] and ask for the COVID hotline. Hotline [...] During the visit, I was located at [facility] and the patient was located at home in [place], [place].The session started at 1117 and ended at 1126. The patient has been informed that the visit may not be secure and acknowledged the information. I have explained the option of participating in a telephone or video visit during the - public [facility] emergency to the patient. After being given [...] User Date and Time NASREEN HAGAN NP [[id number]] 09/16/2019 11:22 AM REVIEW OF SYSTEM Review [...] reviewed the imaging and Bilateral Mammogram at [facility] on 08/17/19: BI-RADS Category 2: benign. Bone Scan at [facility] on 06/24/19: No definite scintigraphic evidence of osseous metastatic disease. CT CAP at [facility] on 05/04/19: 1. No metastatic disease or recurrent disease within the chest,abdomen or pelvis. 2. Interval resolution of pulmonary emboli. MR bilateral breast at [facility] on 04/23/19: 1. Stable LEFT breast conservation [...] Dr. Lela Hardy. Lela Hardy MD, PhD Assistant Professor In Family Studies Department of Radiation Oncology Cosigned by Lela [...] 09/12/2020 added in this encounter Care Teams Information Security Engineer Relationship Specialty Start Date End Date Ravi Smith MD PCP - General 11/04/17 09/27/21 AftKianna MD PhD [address] [place] [address] Surgeon Surgical Oncology 11/22/17 Santiago Gilbert MD [address] [place] [address] Band Manager Gastroenterology 11/22/17 Dmitry Sanderson MD [address] [place] [address] Referring Physician Colon and Rectal Surgery 12/03/1805/06 Abbi Ventura MD [address] [place] [address] [address] [place] [address] Medical Oncologist/Aerial Planting And Cultivation Manager Medical Oncology 12/03/18 Montse Thompson MD [address] [facility] [address] [place] [address] Consulting Physician Gynecologic Oncology 12/03/18 Lela Hardy MD PhD [address] [place] [address] [address] [place] [address] Radiation Oncologist Radiation Oncology 12/23/18 AftKianna MD PhD [address] [place] [address] Surgeon Surgical Oncology 12/23/18 09/17/21 documented as of this encounter
--- OUTSIDE RECORDS SUMMARY | 2024-04-24 14:52 | XMS_ITS | Encounter Summary ---
Author Organization [facility] Address [address] [place] [address] Phone Care Team Providers Care Still Operator Whiskey Name Role Phone Ravi Smith MD Primary Care Provider [phone] Aft, Kianna Machado MD PhD Unavailable [phone] Santiago Gilbert MD Unavailable [phone] Dmitry Sanderson MD Unavailable [phone] Abbi Ventura MD Unavailable Montse Thompson MD Unavailable [phone] Lela Hardy MD PhD Unavailable [phone] Aft, Kianna Machado MD PhD Unavailable [phone] Encounter Details Date Type Department Care Team (Late st Contact Info) Description 08/12/2019 Telephone [facility] Pulmonary [address] [facility] Advanced Medicine 8th [place] [address] [place] [address] Josafat Hinojosa CPhT Social History Tobacco Use [...] file Legal Sex Female 1:06 AM MANAGER LATIN Gender Identity Not on file Sexual Orientation [...] on filedocumented in this encounter Care Teams Still Operator Whiskey Relationship Specialty Start Date End Date Ravi Smith MD PCP - General 11/04/17 09/27/21 Aft, Kianna Machado MD PhD [address] [place] [address] Surgeon Surgical Oncology 11/22/17 Santiago Gilbert MD [address] [place] [address] Fisher Hand Line Gastroenterology 11/22/17 Dmitry Sanderson MD [address] [place] [address] Referring Physician Colon and Rectal Surgery 12/03/1805/06 Abbi Ventura MD [address] [facility] [address] [place], [place] [address] Medical Oncologist/Kennel Worker Medical Oncology 12/03/18 Montse Thompson MD [address] [facility] [address] [place], [place] [address] Consulting Physician Gynecologic Oncology 12/03/18 Lela Hardy MD PhD [address] [place] [address] [address] [place] [address] Radiation Oncologist Radiation Oncology 12/23/18 Aft, Kianna Machado MD PhD [address] [facility] [address] [place], [place] [address] Surgeon Surgical Oncology 12/23/18 09/17/21 documented as of this encounter
--- OUTSIDE RECORDS SUMMARY | 2024-04-24 14:52 | XMS_ITS | Encounter Summary ---
Author Organization [facility] Address [address] [place] [address] Phone Care Team Providers Care Incident Coordinator Name Role Phone Ravi Smith MD Primary Care Provider [phone] Aft, Kianna Machado MD PhD Unavailable [phone] Santiago Gilbert MD Unavailable [phone] Dmitry Sanderson MD Unavailable [phone] Abbi Ventura MD Unavailable Montse Thompson MD Unavailable [phone] Lela Hardy MD PhD Unavailable [phone] Aft, Kianna Machado MD PhD Unavailable [phone] Reason for Referral * (Routine) - Closed Specialty Diagnoses / Procedures Referred By Contac t Referred To Contact Diagnoses VIOLETTE (obstructive sleep apnea) Asthma Procedures Pulmonary Function Test -[facility] Adult PFT Lab- CAM-8D; Spirometry, Oxygen Assessment Titration Cristobal Dong MD [address] [place] [address] Phone: tel: fax: Referral ID Status Reason Start Date Expiration Date Visits Re quested Visits Authorized [id number] Closed 12/01/2019 12/30/2020 1 1 Encounter Details Date Type Department Care Team (Late st Contact Info) Description 12/01/2019 4:00 PM CDT Office Visit [facility] Pulmonary [address] [facility] 8th [place] [address] [place] [address] Cristobal Dong MD [address] [place] [address] VIOLETTE (obstructive sleep apnea) (Primary Dx); Asthma [...] file 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 She has seen Neurology at [facility] without successful identification of her source of [...] - 12/03/2019 04:19 PM Cristobal Dong M.D. landcare facilitator MARTA/francis documented in this encounter Plan of Treatment Not on file documented as of this encounter Results * Pulmonary Function Test - (07/26/2020 12:14 PM CDT) FVC PRE 2.38 L [facility] FVC %PRE PRED 64 % [facility] FEV1 PRE 1.91 L [facility] FEV1 %PRE PRED 66 % [facility] FEV1/FVC PRE 80.4 % [facility] Anatomical Region Laterality Modality PFT 07/26/2020 11:5 2 AM CDT Narrative 08/01/2020 10:55 AM CDT [facility] Division of Pulmonary & Critical Care Medicine [address] [place] [address]; [place] [address]; [place], [place] [address]; [phone] Pulmonary Function Laboratory Pulmonary Stress Test Simple/Oxygen Assessment Patient: Aleah Gerber Date: 07/26/2020 Physician: Iker Ht: 69 in ?? Wt: 242 lbs Room: OP Bisque Tile Burner: Sarah : 1955 Diagnosis: Asthma, VIOLETTE Time(min) [...] with the written final report. PFT performed at:->[facility] Adult PFT Lab- CAM-8D Procedure:->Spirometry Procedure:->Oxygen Assessment Titration Cristobal Dong MD PFT ORDERABLES Final Result documented in this encounter Visit Diagnoses Diagnosis VIOLETTE (obstructive sleep apnea)- Primary Obstructive sleep apnea (adult) (pediatric) Asthma Unspecified asthma VIOLETTE (obstructive sleep apnea) Obstructive sleep apnea (adult) (pediatric) Asthma Unspecified asthma documented in this encounter Care Teams Incident Coordinator Relationship Specialty Start Date End Date Ravi Smith MD PCP - General 11/04/17 09/27/21 Aft, Kianna Machado MD PhD [address] [place] [address] Surgeon Surgical Oncology 11/22/17 Santiago Gilbert MD [address] [place] [address] Operations Architect Gastroenterology 11/22/17 Dmitry Sanderson MD [address] [place] [address] Referring Physician Colon and Rectal Surgery 12/03/1805/06 Abbi Ventura MD [address] [place] [address] [address] [place] [address] Medical Oncologist/Craft Worker Medical Oncology 12/03/18 Montse Thompson MD [address] [place] [address] [address] [place] [address] Consulting Physician Gynecologic Oncology 12/03/18 Lela Hardy MD PhD [address] [place] [address] [address] [place] [address] Radiation Oncologist Radiation Oncology 12/23/18 Aft, Kianna Machado MD PhD [address] [place] [address] [address] [place] [address] Surgeon Surgical Oncology 12/23/18 09/17/21 documented as of this encounter
--- OUTSIDE RECORDS SUMMARY | 2024-04-24 14:52 | XMS_ITS | Encounter Summary ---
Author Organization [facility] Healthcare Address [address] [place] [address] Care Team Providers Care Air Pumper Name Role Phone Ravi Smith MD Primary Care Provider [phone] Aft, Kianna Machado MD PhD Unavailable [phone] Santiago Gilbert MD Unavailable [phone] Dmitry Sanderson MD Unavailable [phone] Abbi Ventura MD Unavailable Montse Thompson MD Unavailable [phone] Lela Hardy MD PhD Unavailable [phone] Aft, Kianna Machado MD PhD Unavailable [phone] Encounter Details Date Type Department Care Team (Late st Contact Info) Description 09/17/2019 Telephone [facility] Radiation Oncology at [facility] [address] [place] [address] Diana Crisostomo MA Social History Tobacco Use [...] on file 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 Gender Identity Not on file Sexual [...] on filedocumented in this encounter Care Teams Air Pumper Relationship Specialty Start Date End Date Ravi Smith MD PCP - General 11/04/17 09/27/21 Aft, Kianna Machado MD PhD [address] [place] [address] Surgeon Surgical Oncology 11/22/17 Santiago Gilbert MD [address] [place] [address] Tire Stripper Gastroenterology 11/22/17 Dmitry Sanderson MD [address] [place] [address] Referring Physician Colon and Rectal Surgery 12/03/1805/06 Abbi Ventura MD [address] [place] [address] Medical Oncologist/Wooden Tank Erector Medical Oncology 12/03/18 Montse Thompson MD [address] [place] [address] Consulting Physician Gynecologic Oncology 12/03/18 Lela Hardy MD PhD [address] [place] [address] Radiation Oncologist Radiation Oncology 12/23/18 Aft, Kianna Machado MD PhD [address] [facility] [address] [place] [address] Surgeon Surgical Oncology 12/23/18 09/17/21 documented as of this encounter
--- OUTSIDE RECORDS SUMMARY | 2024-04-24 14:52 | XMS_ITS | Encounter Summary ---
Author Organization [facility] Address [address] [place] [address] Phone Care Team Providers Care Hvac Technician Name Role Phone Ravi Smith MD Primary Care Provider [phone] Aft, Kianna Machado MD PhD Unavailable [phone] Santiago Gilbert MD Unavailable [phone] Dmitry Sanderson MD Unavailable [phone] Abbi Ventura MD Unavailable Montse Thompson MD Unavailable [phone] Lela Hardy MD PhD Unavailable [phone] Aft, Kianna Machado MD PhD Unavailable [phone] Encounter Details Date Type Department Care Team (Late st Contact Info) Description 06/17/2019 3:00 PM VETERINARY MILK SPECIALIST Lab [facility] Oncology [address] [place] [address] Malignant neoplasm of upper-inner quadrant of left [...] on file Legal Sex Female 1:06 AM VETERINARY MILK 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 Gender Identity Not on file Sexual Orientation Not on file documented as of this encounter Plan of Treatment Not on file documented as of this encounter Procedures Procedure Name Priority Date/Time Associated Diagnosis Comments DIFFERENTIAL AUTO Routine 06/17/2019 2:2 2 PM VETERINARY MILK SPECIALIST Malignant neoplasm of upper-inner quadrant of left breast in female, estrogen receptor negative (CMS/HCC) CBC WITH AUTO DIFFERENTIAL Routine 06/17/2019 2:22 PM VETERINARY MILK SPECIALIST Malignant neoplasm of upper-inner quadrant of left breast in female, estrogen receptor negative (CMS/HCC) PHOSPHORUS Routine 06/17/2019 2:22 PM VETERINARY MILK SPECIALIST Malignant neoplasm of upper-inner quadrant of left breast in female, estrogen receptor negative (CMS/HCC) MAGNESIUM Routine 06/17/2019 2:22 PM VETERINARY MILK SPECIALIST Malignant neoplasm of upper-inner quadrant of left breast in female, estrogen receptor negative (CMS/HCC) CEA Routine 06/17/2019 2:22 PM VETERINARY MILK SPECIALIST Malignant neoplasm of descending colon (CMS/HCC) COMPREHENSIVE METABOLIC PANEL Routine 06/17/2019 2:22 PM VETERINARY MILK SPECIALIST Malignant neoplasm of upper-inner quadrant of left breast in female, estrogen receptor negative (CMS/HCC) documented in this encounter Results * CEA (06/17/2019 2:22 PM VETERINARY MILK SPECIALIST) CEA 2.2 <=5.0 ng/mL LEVAR MICHELLE Comment: [...] 2018. Blood specimen (specimen) 06/17/2019 2:22 PM VETERINARY MILK SPECIALIST 06/17/2019 7:06 PM VETERINARY MILK SPECIALIST us Abbi Ventura MD LAB BLOOD ORDERABLES Final Resul t [facility] Department [place] [address] * Differential, auto (06/17/2019 2:22 PM VETERINARY MILK SPECIALIST) Neutrophil abs 4.7 1.7 - 6.5 K/cumm [facility] Imm gran abs 0.0 0.0 - 0.1 K/cumm [facility] Lymphocyte abs 1.3 0.8 - 3.3 K/cumm [facility] Monocyte abs 0.4 0.2 - 0.8 K/cumm [facility] Eosinophil abs 0.5 0.0 - 0.5 K/cumm [facility] Basophil abs 0.0 0.0 - 0.1 K/cumm [facility] Neutrophil pct 67.8 % [facility] Comment: Interpretive Data Percent cell count reference ranges are not reported, since discordance with absolute values may lead to misinterpretation of CBC data. Current Interpretive Data was last revised on 2017. Imm gran pct 0.3 % [facility] Comment: Interpretive Data Percent cell count reference ranges are not reported, since discordance with absolute values may lead to misinterpretation of CBC data. Current Interpretive Data was last revised on 2017. Lymphocyte pct 18.8 % [facility] Comment: Interpretive Data Percent cell count reference ranges are not reported, since discordance with absolute values may lead to misinterpretation of CBC data. Current Interpretive Data was last revised on 2017. Monocyte pct 5.4 % [facility] Comment: Interpretive Data Percent cell count reference ranges are not reported, since discordance with absolute values may lead to misinterpretation of CBC data. Current Interpretive Data was last revised on 2017. Eosinophil pct 7.0 % [facility] Comment: Interpretive Data Percent cell count reference ranges are not reported, since discordance with absolute values may lead to misinterpretation of CBC data. Current Interpretive Data was last revised on 2017. Basophil pct 0.7 % [facility] Comment: Interpretive Data Percent cell count reference ranges are not reported, since discordance with absolute values may lead to misinterpretation of CBC data. Current Interpretive Data was last revised on 2017. Blood specimen (specimen) 06/17/2019 2:22 PM VETERINARY MILK SPECIALIST 06/17/2019 2:24 PM VETERINARY MILK SPECIALIST Abbi Ventura MD LAB BLOOD ORDERABLES Final Resul t Performing Organization Address [facility] Co de Phone Number [facility] [place] [address] * Phosphorus (06/17/2019 2:22 PM VETERINARY MILK SPECIALIST) [facility] Phosphorus, pl 4.1 2.3 - 4.5 mg/dL [facility] Blood specimen (specimen) 06/17/2019 2:22 PM VETERINARY MILK SPECIALIST 06/17/2019 2:24 PM VETERINARY MILK SPECIALIST Abbi Ventura MD LAB BLOOD ORDERABLES Final Resul t Performing Organization Address [facility] de Phone Number [email or web address] [address] * (ABNORMAL) CBC with auto differential (06/17/2019 2:22 PM VETERINARY MILK SPECIALIST) [facility] WBC 6.9 3.8 - 9.9 K/cumm [facility] Hgb 11.6(L) 11.9 - 15.5 g/dL [facility] Hct 34.9(L) 35.6 - 45.5 % [facility] Plt 160 150 - 400 K/cumm [facility] MPV 9.1 9.1 - 12.3 fL [facility] RBC 3.79(L) 3.90 - 5.20 M/cumm [facility] MCV 92.1 81.3 - 96.4 fL [facility] MCH 30.6 27.1 - 33.3 pg [facility] MCHC 33.2 32.3 - 35.7 g/dL [facility] RDW CV 13.4 11.1 - 14.9 % [facility] RDW SD 45.4 35.7 - 48.1 fL [facility] NRBC abs 0.00 0.00 - 0.01 K/cumm [facility] Blood specimen (specimen) 06/17/2019 2:22 PM VETERINARY MILK SPECIALIST 06/17/2019 2:24 PM VETERINARY MILK SPECIALIST Abbi Ventura MD LAB BLOOD ORDERABLES Final Resul t Performing Organization Address [facility] Co de Phone Number [facility] [email or web address] [address] * Magnesium (06/17/2019 2:22 PM VETERINARY MILK SPECIALIST) [facility] Magnesium 1.9 1.4 - 2.5 mg/dL [facility] Blood specimen (specimen) 06/17/2019 2:22 PM VETERINARY MILK SPECIALIST 06/17/2019 2:24 PM VETERINARY MILK SPECIALIST Abbi Ventura MD LAB BLOOD ORDERABLES Final Resul t Performing Organization Address [facility] de Phone Number [facility] [email or web address] [address] * (ABNORMAL) Comprehensive metabolic panel (06/17/2019 2:22 PM VETERINARY MILK SPECIALIST) [facility] Sodium 140 135 - 145 mmol/L [facility] Potassium, pl 4.6 3.3 - 4.9 mmol/L [facility] Chloride 100 97 - 110 mmol/L [facility] CO2 28 22 - 32 mmol/L [facility] Anion gap 12 2 - 15 mmol/L [facility] BUN 21 8 - 25 mg/dL [facility] Creatinine 1.15(H) 0.60 - 1.10 mg/dL [facility] Glucose 137 70 - 199 mg/dL [facility] Calcium 10.0 8.5 - 10.3 mg/dL [facility] Bilirubin, total 0.5 0.1 - 1.2 mg/dL [facility] Protein, pl 7.3 6.5 - 8.5 g/dL [facility] Albumin 4.3 3.5 - 5.0 g/dL [facility] Alk phos 92 40 - 130 Units/L [facility] ALT 13 7 - 45 Units/L [facility] AST 23 10 - 45 Units/L [facility] Blood specimen (specimen) 06/17/2019 2:22 PM VETERINARY MILK SPECIALIST 06/17/2019 2:24 PM VETERINARY MILK SPECIALIST Narrative [facility] - 06/17/2019 2:47 PM VETERINARY MILK SPECIALIST stat stat us Abbi Ventura MD LAB BLOOD ORDERABLES Final Resul t [facility] Department [place] [address] documented in this encounter Visit Diagnoses Diagnosis Malignant neoplasm of upper-inner quadrant of left breast in female, 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) Malignant neoplasm of descending colon documented in this encounter Care Teams Hvac Technician Relationship Specialty Start Date End Date Ravi Smith MD PCP - General 11/04/17 09/27/21 Aft, Kianna Machado MD PhD [address] [place] [address] Surgeon Surgical Oncology 11/22/17 Santiago Gilbert MD [address] [place] [address] Adobe Developer Gastroenterology 11/22/17 Dmitry Sanderson MD [address] [place] [address] Referring Physician Colon and Rectal Surgery 12/03/1805/06 Abbi Ventura MD [address] [facility] [address] [place] [address] Medical Oncologist/Blind Installer Medical Oncology 12/03/18 Montse Thompson MD [address] [facility] [address] [place] [address] Consulting Physician Gynecologic Oncology 12/03/18 Lela Hardy MD PhD [address] [facility] [address] [place] [address] Radiation Oncologist Radiation Oncology 12/23/18 Aft, Kianna Machado MD PhD [address] [facility] [address] [place] [address] Surgeon Surgical Oncology 12/23/18 09/17/21 documented as of this encounter
--- OUTSIDE RECORDS SUMMARY | 2024-04-24 14:53 | XMS_ITS | Encounter Summary ---
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 Gender Identity Not on file Sexual Orientation Not on file documented as of this encounter Plan of Treatment Not on file documented as of this encounter Visit Diagnoses Not on filedocumented in this encounter Care Teams Emergency Detail Driver Relationship Specialty Start Date End Date Ravi Smith MD PCP - General 11/04/17 09/27/21 Kianna Bunch MD PhD [address] [place] [address] Surgeon Surgical Oncology 11/22/17 Santiago Gilbert MD [address] [place] [address] Virology Teacher Gastroenterology 11/22/17 Dmitry Sanderson MD [address] [place] [address] Referring Physician Colon and Rectal Surgery 12/03/1805/06 Abbi Ventura MD [address] [place] [address] [address] [place] [address] Medical Oncologist/Engraver Automatic Medical Oncology 12/03/18 Montse Thompson MD [address] [place] [address] [address] [place] [address] Consulting Physician Gynecologic Oncology 12/03/18 Lela Hardy MD PhD [address] [place] [address] Radiation Oncologist Radiation Oncology 12/23/18 Kianna Bunch MD PhD [address] [place] [address] Surgeon Surgical Oncology 12/23/18 09/17/21 documented as of this encounter
--- OUTSIDE RECORDS SUMMARY | 2024-04-24 14:53 | XMS_ITS | Encounter Summary ---
Author Organization [facility] Address [address] [facility] [address] [place] [address] Phone Care Team Providers Care Hand Singer Name Role Phone Hugo Smith MD Primary Care Provider [phone] Aft, Tony Machado MD PhD Unavailable [phone] Santiago Gilbert MD Unavailable [phone] Nicole López MD Unavailable [phone] Birdie Ventura MD Unavailable Montse Thompson MD Unavailable [phone] Lela Hardy MD PhD Unavailable [phone] Aft, Tony Machado MD PhD Unavailable [phone] Encounter Details Date Type Department Care Team (Late st Contact Info) Description 03/02/2019 4:10 PM CDT Office Visit [facility] Obstetrics and Gynecology [address] [facility] 13th [place] [address] [place] [address] Montse Thompson MD [address] 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 / TONY BUNCH [...] documented as of this encounter Care Teams Hand Singer Relationship Specialty Start Date End Date Hugo Smith MD PCP - General 11/04/17 09/27/21 Tony Bunch MD PhD [address] [place], [place] [id number] Surgeon Surgical Oncology 11/22/17 Santiago Gilbert MD [address] [place], [place] [id number] Home Health Cna Gastroenterology 11/22/17 Nicole López MD [address] [place], [place] [id number] Referring Physician Colon and Rectal Surgery 12/03/1805/06 Birdie Ventura MD [address] [place] [address] [address] [place] [address] Medical Oncologist/Flatware Maker Medical Oncology 12/03/18 Montse Thompson MD [address] [place] [address] [address] [place] [address] Consulting Physician Gynecologic Oncology 12/03/18 Lela Hardy MD PhD [address] [place] [address] [address] [place] [address] Radiation Oncologist Radiation Oncology 12/23/18 Aft, Tony Machado MD PhD [address] [place] [address] [address] [place], [place] [id number] Surgeon Surgical Oncology 12/23/18 09/17/21 documented as of this encounter
--- OUTSIDE RECORDS SUMMARY | 2024-04-24 14:53 | XMS_ITS | Encounter Summary ---
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 Gender Identity Not on file Sexual Orientation Not on file documented as of this encounter Plan of Treatment Not on file documented as of this encounter Visit Diagnoses Not on filedocumented in this encounter Care Teams Cooling Tower Technician Relationship Specialty Start Date End Date Ravi Smith MD PCP - General 11/04/17 09/27/21 Kianna Bunch MD PhD [address] [place] [address] Surgeon Surgical Oncology 11/22/17 Santiago Gilbert MD [address] [place] [address] Residential Appraiser Gastroenterology 11/22/17 Dmitry Sanderson MD [address] [place] [address] Referring Physician Colon and Rectal Surgery 12/03/1805/06 Abbi Ventura MD [address] [place] [address] [address] [place] [address] Medical Oncologist/Citrix Lead Medical Oncology 12/03/18 Montse Thompson MD [address] [place] [address] [address] [place] [address] Consulting Physician Gynecologic Oncology 12/03/18 Lela Hardy MD PhD [address] [place] [address] Radiation Oncologist Radiation Oncology 12/23/18 Kianna Bunch MD PhD [address] [place] [address] Surgeon Surgical Oncology 12/23/18 09/17/21 documented as of this encounter
--- OUTSIDE RECORDS SUMMARY | 2024-04-24 14:53 | XMS_ITS | Encounter Summary ---
Author Organization [facility] Address [address] [place] [address] Care Team Providers Care Newspaper Publisher Name Role Phone Ravi Smith MD Primary Care Provider [phone] Aft, Kianna Machado MD PhD Unavailable [phone] Santiago Gilbert MD Unavailable [phone] Dmitry Sanderson MD Unavailable [phone] Birdie Ventura MD Unavailable Montse Thompson MD Unavailable [phone] Lela Hardy MD PhD Unavailable [phone] Aft, Kianna Machado MD PhD Unavailable [phone] Reason for Referral * Diagnostic Imaging (Routine) - Closed Specialty Diagnoses / Procedures Referred By [facility] Referred To Contact Radiology Diagnoses Malignant neoplasm of upper-inner quadrant of left breast in female, estrogen receptor negative (HCC) Procedures MRI Breast Bilateral W WO Contrast Birdie Ventura MD [address] [facility] [address] [place] [address] Phone: tel: fax: [facility] Referral ID Status Reason Start Date Expiration Date Visits Re quested Visits Authorized [id number] Closed 04/01/2019 10/10/2020 1 1 ER ATTENDANT Reason for Visit * Diagnostic Imaging (Routine) - Closed Specialty Diagnoses / Procedures Referred By Contron[facility] t Referred To Contact Radiology Diagnoses Malignant neoplasm of upper-inner quadrant of left breast in female, estrogen receptor negative (HCC) Procedures MRI Breast Bilateral W WO Contrast Birdie Ventura MD [address] [facility] [address] [place] [address] Phone: tel: fax: [facility] Referral ID Status Reason Start Date Expiration Date Visits Re quested Visits Authorized [id number] Closed 04/01/2019 10/10/2020 1 1 Encounter Details Date Type Department Care Team (Latest Contact Info) Description 04/23/2019 10:59 AM HOPPER ATTENDANT - 04/23/2019 11:59 PM HOPPER ATTENDANT Hospital Encounter [facility] Radiology [facility] [address] [place] [address] Birdie Ventura MD [address] [facility] [address] [place] [address] Malignant neoplasm of upper-inner quadrant of left [...] on file Legal Sex Female 1:06 AM HOPPER ATTENDANT Gender Identity Not on file Sexual [...] Read Routine (OP Routine) 04/23/2019 12:03 PM HOPPER ATTENDANT Malignant neoplasm of upper-inner quadrant of left breast in female, estrogen receptor negative (CMS/HCC) documented in this encounter Results * MRI Breast Bilateral W WO Contrast (04/23/2019 12:03 PM HOPPER ATTENDANT) Anatomical Region Laterality Modality Breast Bilateral Magnetic Resonan ce 04/23/2019 1:49 PM HOPPER ATTENDANT Impressions 04/23/2019 2:18 PM HOPPER ATTENDANT 1. Stable LEFT breast conservation changes. ??No [...] Nayeli Hughes M.D. Narrative 04/23/2019 2:18 PM HOPPER ATTENDANT ALEAH Rashad GERBER, : 1955 (63 years), [...] For 1 dose Given 04/23/2019 11:58 AM HOPPER ATTENDANT 20 mL documented in this encounter Orders Medications Ordered That [facility] Not Have Been Administered Count Last Ordered Date First Ordered Date gadoterate meglumine (DOTARE M) 0.5 mmol/mL injection 20 mL 1 04/23/2019 documented in this encounter Care Teams Newspaper Publisher Relationship Specialty Start Date End Date Ravi Smith MD PCP - General 11/04/17 09/27/21 Aft, Kianna Machado MD PhD [address] [place] [address] Surgeon Surgical Oncology 11/22/17 Santiago Gilbert MD [address] [place] [address] Consumer Loan Underwriter Gastroenterology 11/22/17 Dmitry Sanderson MD [address] [place] [address] Referring Physician Colon and Rectal Surgery 12/03/1805/06 Birdie Ventura MD [address] [facility] [address] [place] [address] Medical Oncologist/Suction Roller Medical Oncology 12/03/18 Montse Thompson MD [address] [facility] [address] [place], [place] [id number] Consulting Physician Gynecologic Oncology 12/03/18 Lela Hardy MD PhD [address] [place] [address] [address] [place], [place] [id number] Radiation Oncologist Radiation Oncology 12/23/18 Aft, Kianna Machado MD PhD [address] [facility] [address] [place], [place] [id number] Surgeon Surgical Oncology 12/23/18 09/17/21 documented as of this encounter
--- OUTSIDE RECORDS SUMMARY | 2024-04-24 14:53 | XMS_ITS | Encounter Summary ---
Author Organization [facility] Healthcare Address [address] [place] [address] Care Team Providers Care Flight Physician Name Role Phone Ravi Smith MD Primary Care Provider [phone] Aft, Kianna Machado MD PhD Unavailable Santiago Gilbert MD Unavailable [phone] Dmitry Sanderson MD Unavailable [phone] Abbi Ventura MD Unavailable Montse Thompson MD Unavailable [phone] Lela Hardy MD PhD Unavailable [phone] Aft, Kianna Machado MD PhD Unavailable [phone] Reason for Referral * Diagnostic Imaging (Routine) - Closed Specialty Diagnoses / Procedures Referred By [facility] Referred To Contact Radiology Diagnoses Malignant neoplasm of upper-inner quadrant of left breast in female, estrogen receptor negative (HCC) Procedures CT Chest Abdomen Pelvis W Contrast Abbi Ventura MD [address] [facility] [address] [place] [address] Phone: tel: fax: [facility] Referral ID Status Reason Start Date Expiration Date Visits Re quested Visits Authorized [id number] Closed 04/01/2019 10/10/2020 1 1 OSITE SCIENCE TEACHER Reason for Visit * Diagnostic Imaging (Routine) - Closed Specialty Diagnoses / Procedures Referred By Contronny t Referred To Contact Radiology Diagnoses Malignant neoplasm of upper-inner quadrant of left breast in female, estrogen receptor negative (HCC) Procedures CT Chest Abdomen Pelvis W Contrast Abbi Ventura MD [address] [facility] [address] [place] [address] Phone: tel: fax: [facility] Referral ID Status Reason Start Date Expiration Date Visits Re quested Visits Authorized [id number] Closed 04/01/2019 10/10/2020 1 1 Encounter Details Date Type Department Care Team (Latest Contact Info) Description 05/04/2019 8:40 AM COMPOSITE SCIENCE TEACHER - 05/04/2019 11:59 PM COMPOSITE SCIENCE TEACHER Hospital Encounter [facility] at [facility] [address] [place] [address] Abbi Ventura MD [address] [facility] [address] [place], [place] [id number] Malignant neoplasm of upper-inner quadrant of left [...] on file Legal Sex Female 1:06 AM COMPOSITE SCIENCE TEACHER Gender Identity Not on file Sexual [...] Read Routine (OP Routine) 05/04/2019 9:09 AM COMPOSITE SCIENCE TEACHER Malignant neoplasm of upper-inner quadrant of left breast in female, estrogen receptor negative (CMS/HCC) documented in this encounter Results * CT Chest Abdomen Pelvis W Contrast (05/04/2019 9:09 AM COMPOSITE SCIENCE TEACHER) Anatomical Region Laterality Modality Body N/A Computed Tomogra phy 05/04/2019 9:24 AM COMPOSITE SCIENCE TEACHER Impressions 05/04/2019 9:24 AM COMPOSITE SCIENCE TEACHER 1. No metastatic disease or recurrent disease within the chest, abdomen or pelvis. 2. Interval resolution of pulmonary emboli. Electronically signed by: Ovidio Meyers M.D. Narrative 05/04/2019 9:24 AM COMPOSITE SCIENCE TEACHER EXAMINATION: CT CHEST, ABDOMEN AND PELVIS WITH [...] For 1 dose Given 05/04/2019 9:05 AM COMPOSITE SCIENCE TEACHER 125 mL documented in this encounter Orders Medications Ordered That Jefferson ht Not Have Been Administered Count Last Ordered Date First Ordered Date ioversol (OPTIRAY 350) syrin ge syringe 125 mL 1 05/04/2019 documented in this encounter Care Teams Flight Physician Relationship Specialty Start Date End Date Ravi Smith MD PCP - General 11/04/17 09/27/21 Aft, Kianna Machado MD PhD [address] [place] [address] Surgeon Surgical Oncology 11/22/17 Santiago Gilbert MD [address] [place] [address] On Site Manager Gastroenterology 11/22/17 Dmitry Sanderson MD [address] [place] [address] Referring Physician Colon and Rectal Surgery 12/03/1805/06 Abbi Ventura MD [address] [place] [address] [address] [place] [address] Medical Oncologist/Low Altitude Air Defense Gunner Medical Oncology 12/03/18 Montse Thompson MD [facility] [address] [place] [address] Consulting Physician Gynecologic Oncology 12/03/18 Lela Hardy MD PhD [address] [place] [address] [address] [place] [address] Radiation Oncologist Radiation Oncology 12/23/18 Aft, Kianna Machado MD PhD [address] [place] [address] [address] [place] [address] Surgeon Surgical Oncology 12/23/18 09/17/21 documented as of this encounter
--- OUTSIDE RECORDS SUMMARY | 2024-04-24 14:53 | XMS_ITS | Encounter Summary ---
Author Organization [facility] Address [address] [place] [address] Phone Care Team Providers Care Senior Physician Name Role Phone Ravi Smith MD Primary Care Provider [phone] Aft, Kianna Machado MD PhD Unavailable [phone] Santiago Gilbert MD Unavailable [phone] Dmitry Sanderson MD Unavailable [phone] Abbi Ventura MD Unavailable Montse Thompson MD Unavailable Lela Hardy MD PhD Unavailable Aft, Kianna Machado MD PhD Unavailable [phone] Encounter Details Date Type Department Care Team (Late st Contact Info) Description 04/23/2019 Telephone [facility] Oncology [address] [place] [address] Fatemeh Zarate, RN Social History Tobacco Use [...] file Legal Sex Female 1:06 AM ELECTRIC OPERATOR Gender Identity Not on file Sexual Orientation Not on file documented as of this encounter Miscellaneous Notes * Telephone Encounter - Fatemeh Zarate RN - 04/23/2019 6:53 PM CST ----- Message from Fatemeh Zarate RN sent at 04/23/2019 6:52 PM ELECTRIC OPERATOR ----- Bilateral breast MRI completed on 04/23/19. [...] OVERALL FINAL ASSESSMENT: BI-RADS Category 2: Benign TRIC OPERATOR documented in this encounter Plan of Treatment Not on file documented as of this encounter Visit Diagnoses Not on filedocumented in this encounter Care Teams Senior Physician Relationship Specialty Start Date End Date Ravi Smith MD PCP - General 11/04/17 09/27/21 Aft, Kianna Machado MD PhD [address] [place] [address] Surgeon Surgical Oncology 11/22/17 Santiago Gilbert MD [address] [place] [address] Family Welfare Social Work Professor Gastroenterology 11/22/17 Dmitry Sanderson MD [address] [place] [address] Referring Physician Colon and Rectal Surgery 12/03/1805/06 Abbi Ventura MD [address] [place], [place] [id number] Medical Oncologist/Automatic Transmission Mechanic Medical Oncology 12/03/18 Montse Thompson MD [address] [place] [address] Consulting Physician Gynecologic Oncology 12/03/18 Lela Hardy MD PhD [address] [place] [address] Radiation Oncologist Radiation Oncology 12/23/18 Aft, Kinana Machado MD PhD [address] [place], [place] [address] Surgeon Surgical Oncology 12/23/18 09/17/21 documented as of this encounter
--- OUTSIDE RECORDS SUMMARY | 2024-04-24 14:53 | XMS_ITS | Encounter Summary ---
Author Organization [facility] Address [address] [place] [address] Phone Care Team Providers Care Organic Chemistry Teacher Name Role Phone Ravi Smith MD Primary Care Provider [phone] Aft, Kianna Machado MD PhD Unavailable [phone] Santiago Gilbert MD Unavailable [phone] Dmitry Sanderson MD Unavailable [phone] Birdie Ventura MD Unavailable Montse Thompson MD Unavailable [phone] Lela Hardy MD PhD Unavailable [phone] Aft, Kianna Machado MD PhD Unavailable [phone] Reason for Referral * Diagnostic Imaging (Routine) - Closed Specialty Diagnoses / Procedures Referred By Contac t Referred To Contact Radiology Diagnoses Malignant neoplasm of upper-inner quadrant of left breast in female, estrogen receptor negative (HCC) Procedures CT Chest Abdomen Pelvis W Contrast Birdie Ventura MD 10 [facility] [address] [place] [address] Phone: tel: fax: [facility] Referral ID Status Reason Start Date Expiration Date Visits Re quested Visits Authorized [id number] Closed 04/01/2019 10/10/2020 1 1 OBJECTS SALESPERSON * Diagnostic Imaging (Routine) - Closed Specialty Diagnoses / Procedures Referred By Vijaya simpson Referred To Contact Radiology Diagnoses Malignant neoplasm of upper-inner quadrant of left breast in female, estrogen receptor negative (HCC) Procedures MRI Breast Bilateral W WO Contrast Birdie Ventura MD [address] [place] [address] Phone: tel: fax: [facility] Referral ID Status Reason Start Date Expiration Date Visits Re quested Visits Authorized [id number] Closed 04/01/2019 10/10/2020 1 1 OBJECTS SALESPERSON Reason for Visit * Oncology (Routine) - Closed Specialty Diagnoses / Procedures Referred By Vijaya simpson Referred To Contact Medical Oncology / Oncology Diagnoses 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 Ventura to discuss TC Procedures [facility] CLINIC APPOINTMENT REQUEST RETURN Jamaica Montoya NP [address] [place] [address] [place] [address] Phone: tel: fax: Birdie Ventura MD [address] [facility] [address] [place] [address] Phone: tel: fax: Referral ID Status Reason Start Date Expiration Date V isits Requested Visits Authorized [id number] Closed Specialty Services Required 06/04/2018 05/05/2019 99 99 Encounter Details Date Type Department Care Team (Late st Contact Info) Description 04/01/2019 10:30 AM ART OBJECTS SALESPERSON Office Visit [facility] Oncology [address] [place] [address] Birdie Ventura MD [address] [place] [address] Malignant neoplasm of upper-inner [...] file Legal Sex Female 1:06 AM ART OBJECTS SALESPERSON Gender Identity Not on file Sexual Orientation Not on file documented as of this encounter Last Filed Vital Signs Vital Sign Reading Time Taken Comments Blood Pressure 135/55 04/01/2019 10:49 AM ART OBJECTS SALESPERSON Pulse 104 04/01/2019 10:49 AM ART OBJECTS SALESPERSON Temperature 36.8 ??C (98.2 ??F) 04/01/2019 10:[address] Respiratory Rate 16 04/01/2019 10:49 AM ART OBJECTS SALESPERSON Oxygen Saturation 97% 04/01/2019 10:49 AM ART OBJECTS SALESPERSON Inhaled Oxygen Concentration - - Weight 105.9 kg (233 lb 8 oz) 04/01/2019 10:49 A M ART OBJECTS SALESPERSON Height - - Body Mass Index 34.48 03/30/2019 4:33 PM ART OBJECTS SALESPERSON documented in this encounter Ordered Prescriptions Prescription [...] pathology reviewed in [facility] ASSESSMENT: T4bN0 disease, Stage IIC colon adenocarcinoma: No evidence of cancer recurrence T2N0, 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 Had colonoscopy done at [facility] and we will get a copy of that report. Birdie Ventura MD odd ticket clerk Division of Oncology Section of Medical Oncology [facility] Sheet Metal Layout Worker completed by using M*Modal Fluency Direct speaking software, therefore, transcriptionvariances may occur. OBJECTS SALESPERSON documented in this encounter Plan of Treatment Not on file documented as of this encounter Results * CT Chest Abdomen Pelvis W Contrast (05/04/2019 9:09 AM ART OBJECTS SALESPERSON) Anatomical Region Laterality Modality Body N/A Computed Tomogra phy 05/04/2019 9:24 AM ART OBJECTS SALESPERSON Impressions 05/04/2019 9:24 AM ART OBJECTS SALESPERSON 1. No metastatic disease or recurrent disease within the chest, abdomen or pelvis. 2. Interval resolution of pulmonary emboli. Electronically signed by: Ovidio Meyers M.D. Narrative 05/04/2019 9:24 AM ART OBJECTS SALESPERSON EXAMINATION: CT CHEST, ABDOMEN AND PELVIS WITH [...] by: Ovidio Meyers M.D. Birdie Ventura MD [facility] CT PROCEDURES Final Result * MRI Breast Bilateral W WO Contrast (04/23/2019 12:03 PM ART OBJECTS SALESPERSON) Anatomical Region Laterality Modality Breast Bilateral Magnetic Resonan ce 04/23/2019 1:49 PM ART OBJECTS SALESPERSON Impressions 04/23/2019 2:18 PM ART OBJECTS SALESPERSON 1. Stable LEFT breast conservation changes. ??No [...] Nayeli Hughes M.D. Narrative 04/23/2019 2:18 PM ART OBJECTS SALESPERSON ALEAH GERBER, : 1955 (63 years), , [...] by: Nayeli Hughes M.D. Birdie Ventura MD [facility] MRI PROCEDURES Final Result * CEA (04/01/2019 10:18 AM ART OBJECTS SALESPERSON) CEA 2.4 <=5.0 ng/mL [facility] Comment: Interpretative Data: Reference Range: Non-Smokers: 0.0 - 5.0 ng/mL Smokers: 0.0 ? 6.5 ng/mL This test was developed and its performance characteristics determined by the [facility] in a manner consistent with CLIA requirements. This test has not been cleared or approved by the U.S. Food and Drug Administration. Current interpretive data was last revised 2018. Blood specimen (specimen) 04/01/2019 10:18 AM ART OBJECTS SALESPERSON 04/01/2019 11:15 AM ART OBJECTS SALESPERSON Birdie Ventura MD LAB BLOOD ORDERABLES Final Resul t Performing Organization Address City/[facility] Co de Phone Number [facility] [place] [address] * Magnesium (04/01/2019 10:18 AM ART OBJECTS SALESPERSON) Pathologist [facility] Magnesium 1.8 1.4 - 2.5 mg/dL [facility] Blood specimen (specimen) 04/01/2019 10:18 AM ART OBJECTS SALESPERSON 04/01/2019 10:18 AM ART OBJECTS SALESPERSON Birdie Ventura MD LAB BLOOD ORDERABLES Final Resul t Performing Organization Address [facility] de Phone Number [facility] Department [place] [address] * Comprehensive metabolic panel (04/01/2019 10:18 AM ART OBJECTS SALESPERSON) Pathologist [facility] Sodium 142 135 - 145 mmol/L [facility] Potassium, pl 4.2 3.3 - 4.9 mmol/L [facility] Chloride 107 97 - 110 mmol/L [facility] CO2 27 22 - 32 mmol/L [facility] Anion gap 8 2 - 15 mmol/L [facility] BUN 24 8 - 25 mg/dL [facility] Creatinine 1.09 0.60 - 1.10 mg/dL [facility] Glucose 164 70 - 199 mg/dL [facility] Comment: Interpretive Data Fasting glucose >/= [...] 2017. Calcium 9.5 8.5 - 10.3 mg/dL [facility] Bilirubin, total 0.2 0.1 - 1.2 mg/dL [facility] Protein, pl 7.1 6.5 - 8.5 g/dL [facility] Albumin 4.2 3.5 - 5.0 g/dL [facility] Alk phos 79 40 - 130 Units/L [facility] ALT 12 7 - 45 Units/L [facility] AST 17 10 - 45 Units/L [facility] Blood specimen (specimen) 04/01/2019 10:18 AM ART OBJECTS SALESPERSON 04/01/2019 10:18 AM ART OBJECTS SALESPERSON us Birdie Ventura MD LAB BLOOD ORDERABLES Final Resul t [facility] One [facility] [place] [address] * (ABNORMAL) CBC with auto differential (04/01/2019 10:18 AM ART OBJECTS SALESPERSON) Pathologist [facility] WBC 7.3 3.8 - 9.9 K/cumm [facility] Hgb 11.2(L) 11.9 - 15.5 g/dL [facility] Hct 33.6(L) 35.6 - 45.5 % [facility] Plt 156 150 - 400 K/cumm [facility] MPV 9.4 9.1 - 12.3 fL [facility] RBC 3.63(L) 3.90 - 5.20 M/cumm [facility] MCV 92.6 81.3 - 96.4 fL [facility] MCH 30.9 27.1 - 33.3 pg [facility] MCHC 33.3 32.3 - 35.7 g/dL [facility] RDW CV 13.8 11.1 - 14.9 % [facility] RDW SD 46.9 35.7 - 48.1 fL [facility] NRBC abs 0.00 0.00 - 0.01 K/cumm [facility] Blood specimen (specimen) 04/01/2019 10:18 AM ART OBJECTS SALESPERSON 04/01/2019 10:18 AM ART OBJECTS SALESPERSON us Birdie Ventura MD LAB BLOOD ORDERABLES Final Resul t [facility] [place] [address] documented in this encounter Visit Diagnoses Diagnosis [...] 019 documented in this encounter Care Teams Organic Chemistry Teacher Relationship Specialty Start Date End Date Ravi Smith MD PCP - General 11/04/17 09/27/21 Aft, Kianna Machado MD PhD [address] [place] [address] Surgeon Surgical Oncology 11/22/17 Santiago Gilbert MD [address] [place] [address] Tubing Machine Operator Gastroenterology 11/22/17 Dmitry Sanderson MD [address] [place] [address] Referring Physician Colon and Rectal Surgery 12/03/1805/06 Birdie Ventura MD [address] [facility] [address] [place] [address] Medical Oncologist/Director Of Dance Medical Oncology 12/03/18 Montse Thompson MD 10 [facility] [address] [place] [address] Consulting Physician Gynecologic Oncology 12/03/18 Lela Hardy MD PhD [address] [facility] [address] [place] [address] Radiation Oncologist Radiation Oncology 12/23/18 Aft, Kianna Machado MD PhD [address] [facility] [address] [place] [address] Surgeon Surgical Oncology 12/23/18 09/17/21 documented as of this encounter
--- OUTSIDE RECORDS SUMMARY | 2024-04-24 14:53 | XMS_ITS | Encounter Summary ---
Author Organization [facility] Address [address] [facility] [address] [place] [address] Phone Care Team Providers Care Entry Level Manufacturing Engineer Name Role Phone Hugo Smith MD Primary Care Provider [phone] Aft, Tony Machado MD PhD Unavailable [phone] Santiago Gilbert MD Unavailable [phone] Nicole López MD Unavailable [phone] Birdie Ventura MD Unavailable Montse Thompson MD Unavailable Lela Hardy MD PhD Unavailable Aft, Tony Machado MD PhD Unavailable [phone] Reason for Visit * Reason Comments Follow-up Encounter Details Date Type Department Care Team (Late st Contact Info) Description 03/30/2019 4:20 PM EXPLOSIVES WORKER Office Visit [facility] Obstetrics and Gynecology [address] [facility] Advanced Medicine 13th [place] [address] [place] [address] Montse Thompson MD [address] [facility] [phone] [place] [address] BRCA2 gene mutation positive in [...] on file Legal Sex Female 1:06 AM EXPLOSIVES WORKER Gender Identity Not on file Sexual Orientation Not on file documented as of this encounter Last Filed Vital Signs Vital Sign Reading Time Taken Comments Blood Pressure 104/67 03/30/2019 4:33 PM EXPLOSIVES WORKER Pulse 103 03/30/2019 4:33 PM EXPLOSIVES WORKER Temperature 36.8 ??C (98.2 ??F) 03/30/2019 4:33 PM CS T Respiratory Rate 16 03/30/2019 4:33 PM EXPLOSIVES WORKER Oxygen Saturation 97% 03/30/2019 4:33 PM EXPLOSIVES WORKER Inhaled Oxygen Concentration - - Weight 104.6 kg (230 lb 9.6 oz) 03/30/2019 4:33 PM EXPLOSIVES WORKER Height 175.3 cm (5' 9 ) 03/30/2019 4:33 PM EXPLOSIVES WORKER Body Mass Index 34.05 03/30/2019 4:33 PM EXPLOSIVES WORKER documented in this encounter Progress Notes * Montse Thompson MD - 03/30/2019 12:00 AM CST PATIENT: ALEAH GERBER : 1955 FARHAT: 03/30/2019 REASON FOR VISIT: Postoperative visit #2 for a BRCA2 mutation. HISTORY OF PRESENT ILLNESS: Ms. Gerbre is [...] Oncology Clinical Research Division of Gynecologic Oncology [facility] PHT/sv/#[id number] cc: BIRDIE VENTURA M.D. / TONY BUNCH MD / HUGO SMITH MD / / NICOLE LÓPEZ MD / MELIZA JENNINGS MD / / OSIVES WORKER documented in this encounter Miscellaneous Notes * Treatment Plan - Montse Thompson MD - 03/30/2019 4:20 PM CST Please schedule Aleah Gerber for the following: Requested Order Contrast Indication When CXR CT Chest, Abdomen, and Pelvis CT Abdomen and Pelvis LEEP (during clinic hours) FOOTBALL SCOUT Ultrasound MRI Mammogram PET Initiate Survivoship Care Plan Surveillance Labs (CBC w/ Diff, CMP, Magnesium, CA125) Labwork: ca125 in 6 months x OSIVES WORKER documented in this encounter Plan of [...] 09/16/2019 added in this encounter Care Teams Entry Level Manufacturing Engineer Relationship Specialty Start Date End Date Hugo Smith MD PCP - General 11/04/17 09/27/21 Tony Bunch MD PhD [address] [place] [address] Surgeon Surgical Oncology 11/22/17 Santiago Gilbert MD [address] [place] [address] Choker Hooker Gastroenterology 11/22/17 Nicole López MD [address] [place] [address] Referring Physician Colon and Rectal Surgery 12/03/1805/06 Birdie Ventura MD [address] [place] [address] Medical Oncologist/Patrol Sergeant Sheriff'[facility] Office Medical Oncology 12/03/18 Montse Thompson MD 10 [facility] [address] [place], [place] [id number] Consulting Physician Gynecologic Oncology 12/03/18 Lela Hardy MD PhD [address] [place], [place] [id number] Radiation Oncologist Radiation Oncology 12/23/18 Tony Bunch MD PhD [address] [place] [address] Surgeon Surgical Oncology 12/23/18 09/17/21 documented as of this encounter
--- OUTSIDE RECORDS SUMMARY | 2024-04-24 14:53 | XMS_ITS | Encounter Summary ---
Author Organization [facility] Address [address] [place] [address] Phone Care Team Providers Care Helmet Binder Name Role Phone Ravi Smith MD Primary Care Provider [phone] Aft, Kianna Machado MD PhD Unavailable [phone] Santiago Gilbert MD Unavailable [phone] Dmitry Sanderson MD Unavailable [phone] Abbi Ventura MD Unavailable Montse Thompson MD Unavailable [phone] Lela Hardy MD PhD Unavailable [phone] Aft, Kianna Machado MD PhD Unavailable [phone] Encounter Details Date Type Department Care Team (Late st Contact Info) Description 04/20/2019 Telephone [facility] Surgery [address] [facility] Advanced Medicine 5th [place] [address] [place] [address] Jessica Swanson, [facility] [address] [id number] Social History Tobacco Use Types Packs/Day Years [...] on file Legal Sex Female 1:06 AM LEATHER STRIPPING MACHINE OPERATOR Gender Identity Not on file Sexual Orientation Not on file documented as of this encounter Miscellaneous Notes * Telephone Encounter - Tony Martin - 04/20/2019 8:51 AM CST Left msg for pt to call back. HER STRIPPING MACHINE OPERATOR documented in this encounter Plan of Treatment Not on file documented as of this encounter Visit Diagnoses Not on filedocumented in this encounter Care Teams Helmet Binder Relationship Specialty Start Date End Date Ravi Smith MD PCP - General 11/04/17 09/27/21 Aft, Kianna Machado MD PhD [address] [place] [address] Surgeon Surgical Oncology 11/22/17 Santiago Gilbert MD [address] [place] [address] Excavator Backhoe Operator Gastroenterology 11/22/17 Dmitry Sanderson MD [address] [place] [address] Referring Physician Colon and Rectal Surgery 12/03/1805/06 Abbi Ventura MD [address] [place] [address] [address] [place] [address] Medical Oncologist/Electrical Cad Designer Medical Oncology 12/03/18 Montse Thompson MD [address] [facility] [address] [place], [place] [id number] Consulting Physician Gynecologic Oncology 12/03/18 Lela Hardy MD PhD [address] [facility] [address] [place], [place] [id number] Radiation Oncologist Radiation Oncology 12/23/18 Aft, Kianna Machado MD PhD [address] [facility] [address] [place] [address] Surgeon Surgical Oncology 12/23/18 09/17/21 documented as of this encounter
--- OUTSIDE RECORDS SUMMARY | 2024-04-24 14:53 | XMS_ITS | Encounter Summary ---
Author Organization [facility] Healthcare Address [address] [place] [address] Care Team Providers Care Film Crew Member Name Role Phone Ravi Simth MD Primary Care Provider [phone] Aft, Kianna Machado MD PhD Unavailable [phone] Santiago Gilbert MD Unavailable [phone] Dmitry Sanderson MD Unavailable [phone] Abbi Ventura MD Unavailable Montse Thompson MD Unavailable Lela Hardy MD PhD Unavailable Aft, Kianna Machado MD PhD Unavailable [phone] Encounter Details Date Type Department Care Team (Late st Contact Info) Description 02/13/2019 7:23 AM CDT Anesthesia Event [facility] Operating Room [address] [place] [id number] Antony Lester Sr., MD [address] [place], [place] [id number] Maria Elena Rodriguez NP [address] [facility] [id number] [place] [address] Anesthesia Record Procedure Summary Procedure Name Responsible [...] on file Legal Sex Female 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 OR POD 1 ROOM 327 / [facility] OR POD 1 Anesthesia Start: 722 [...] provider: Antony Lester Sr., MD Placed by: CERTIFIED MEDICATION AIDE: Lily Parada CRNA Emergent airway documentation: Risks [...] Planning Preoperative Evaluation Record CPAP Clinic at [facility] ([facility]) Date: 02/09/19 Anesthesia Evaluation Aleah Gerber [...] surgeon's office. Please call the CPAP attending [phone]) to revisit bleeding risk assessment, with any [...] Process complete. Follow-up completed by: Maria Elena Rodriugez NP on 02/09/19 at 2:44 PM Discussed [...] Breast Needle Localization partial mastectomy (L), Biopsy [place] Lymph Node With Lymphoscintigraphy (L), Insertion Port [...] There are no prior chest radiographs at [facility] for comparison. A right internal [...] extubation planned. Informed Consent: Discussed plan with CERTIFIED MEDICATION AIDE. Anesthesia plan and risks discussed with patient [...] Procedure Name Priority Date/Time Associated Diagnosis Comments ID AN PROCEDURE PLACEHOLDER Routine 02/13/2019 8:22 AM CDT Procedure Note - Lily Parada CRNA - 02/13/2019 8:22 AM CDTThis note is in progress. Airway Patient location: OR Urgency: elective Indications for airway management: anesthesia Difficult airway: no Staff: Supervising provider: Antony Lester Sr., MD Placed by: CERTIFIED MEDICATION AIDE: Lily Parada CRNA Emergent airway documentation: Risks [...] with: silk tape Number of attempts: 1 ID AN ELECTIVE ENDOTRACHEAL AIRWAY Routine 02/13/2019 8:22 AM CDT Procedure Note - Lily Parada CRNA - 02/13/2019 8:22 AM CDTThis note is in progress. Airway Patient location: OR Urgency: elective Indications for airway management: anesthesia Difficult airway: no Staff: Supervising provider: Antony eLster Sr., MD Placed by: CERTIFIED MEDICATION AIDE: Lily Parada CRNA Emergent airway documentation: Risks [...] 02/13/2019 documented in this encounter Care Teams Film Crew Member Relationship Specialty Start Date End Date Ravi Smith MD PCP - General 11/04/17 09/27/21 Aft, Kianna Machado MD PhD [address] [place] [address] Surgeon Surgical Oncology 11/22/17 Santiago Gilbert MD [address] [place] [address] Early Childhood Associate Gastroenterology 11/22/17 Dmitry Sanderson MD [address] [place] [address] Referring Physician Colon and Rectal Surgery 12/03/1805/06 Abbi Ventura MD [address] [facility] [address] [place], [place] [id number] Medical Oncologist/Tie Carrier Medical Oncology 12/03/18 Montse Thompson MD [address] [facility] [address] [place], [place] [id number] Consulting Physician Gynecologic Oncology 12/03/18 Lela Hardy MD PhD [address] [facility] [address] [place], [place] [id number] Radiation Oncologist Radiation Oncology 12/23/18 Aft, Kianna Machado MD PhD [address] [facility] [address] [place] [address] Surgeon Surgical Oncology 12/23/18 09/17/21 documented as of this encounter
--- OUTSIDE RECORDS SUMMARY | 2024-04-24 14:53 | XMS_ITS | Encounter Summary ---
Author Organization [facility] Address [address] [place] [address] Phone Care Team Providers Care Signal Helper Name Role Phone Ravi Smith MD Primary Care Provider [phone] Aft, Kianna Machado MD PhD Unavailable [phone] Santiago Gilbert MD Unavailable [phone] Dmitry Sanderson MD Unavailable [phone] Abbi Ventura MD Unavailable Montse Thompson MD Unavailable [phone] Lela Hardy MD PhD Unavailable [phone] Aft, Kianna Machado MD PhD Unavailable [phone] Encounter Details Date Type Department Care Team (Late st Contact Info) Description 05/08/2019 Telephone [facility] Pulmonary [address] 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 that Dr. Dong looked at her Chest CT from 05/04/19 and there was no evidence of pulmonary emboli. Informed her that she will need a minimum of anticoagulation as long as her cancer isin remission. Pt. stated that she already took the anticoagulant for 6mo. and one of her Dr's. stopped it. DEPARTMENT WORKER documented in this encounter Plan of Treatment Not on file documented as of this encounter Visit Diagnoses Not on filedocumented in this encounter Care Teams Signal Helper Relationship Specialty Start Date End Date Ravi Smith MD PCP - General 11/04/17 09/27/21 Aft, Kianna Machado MD PhD [address] [place] [address] Surgeon Surgical Oncology 11/22/17 Santiago Gilbert MD [address] [place] [address] Resource Protection Specialist Gastroenterology 11/22/17 Dmitry Sanderson MD [address] [place] [address] Referring Physician Colon and Rectal Surgery 12/03/1805/06 Abbi Ventura MD [address] [place] [address] [address] [place] [address] Medical Oncologist/Field Services Director Medical Oncology 12/03/18 Montse Thompson MD [address] [facility] [address] [place], [place] [id number] Consulting Physician Gynecologic Oncology 12/03/18 Lela Hardy MD PhD [address] [facility] [address] [place], [place] [id number] Radiation Oncologist Radiation Oncology 12/23/18 Aft, Kianna Machado MD PhD [address] [facility] [address] [place], [place] [id number] Surgeon Surgical Oncology 12/23/18 09/17/21 documented as of this encounter
--- OUTSIDE RECORDS SUMMARY | 2024-04-24 14:53 | XMS_ITS | Encounter Summary ---
Author Organization [facility] Healthcare Address [address] [place] [address] Care Team Providers Care Lens Molding Equipment Operator Name Role Phone Ravi Smith MD Primary Care Provider [phone] Aft, Kianna Machado MD PhD Unavailable [phone] Santiago Gilbert MD Unavailable [phone] Dmitry Sanderson MD Unavailable [phone] Abbi Ventura MD Unavailable Montse Thompson MD Unavailable [phone] Lela Hardy MD PhD Unavailable [phone] Aft, Kianna Machado MD PhD Unavailable [phone] Encounter Details Date Type Department Care Team (Late st Contact Info) Description 04/09/2019 8:15 AM SPECIMEN COLLECTOR - 04/09/2019 9:30 AM SPECIMEN COLLECTOR Surgery [facility] Operating Room [facility] [address] [place] [address] Aft, Kianna Machado MD PhD [address] [place], [place] [id number] REMOVAL PORT A CATH Surgery Details Date/Time Status Location OR Service Patient Class Case Cl ass Case Type Trauma Case? 04/09/2019 8:15 AM Posted [facility] CAM OR POD 4 A Oncology Outpatient Elective Panel 1 Procedure LRB Anes Op Region Wound Class Comments REMOVAL PORT A CATH Right Choice Class I - Clean Surgeon Surgeon Role Service Panel Aft, Kianna Machado MD PhD Primary Oncology 1 Skylra Travis MD Resident - Assisting Gener al [...] on file Legal Sex Female 1:06 AM SPECIMEN COLLECTOR Gender Identity Not on file Sexual Orientation Not on file documented as of this encounter Last Filed Vital Signs Vital Sign Reading Time Taken Comments Blood Pressure 157/84 04/09/2019 9:30 AM SPECIMEN COLLECTOR Pulse 73 04/09/2019 9:30 AM SPECIMEN COLLECTOR Temperature 36.1 ??C (97 ??F) 04/09/2019 9:15 AM SPECIMEN COLLECTOR Respiratory Rate 12 04/09/2019 9:30 AM SPECIMEN COLLECTOR Oxygen Saturation 96% 04/09/2019 9:30 AM SPECIMEN COLLECTOR Inhaled Oxygen Concentration - - Weight 106.6 kg (235 lb) 03/20/2019 4:50 PM SPECIMEN COLLECTOR Height 175.3 cm (5' 9 ) 03/20/2019 4:50 PM SPECIMEN COLLECTOR Body Mass Index 34.7 03/20/2019 4:50 PM SPECIMEN COLLECTOR documented in this encounter Discharge Instructions * Discharge Instructions* Skylar Travis MD - 04/09/2019 6:09 AM SPECIMEN COLLECTOR Take tylenol for pain. 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 Patient has upcoming appointment w/ lineman apprentice in April w/ plans to discuss a [...] day after surgery. Sent Epic Message via [employer] in surgeon's office. Please call the CPAP attending ([phone]) to revisit bleeding risk assessment, with any [...] Breast Needle Localization partial mastectomy (L), Biopsy [place] Lymph Node With Lymphoscintigraphy (L), Insertion Port [...] There are no prior chest radiographs at [facility] for comparison. A right internal jugular catheter [...] Medication protocol when under care of a PROFESSIONAL CASTER Planned anesthesia: MAC Induction: Induction: intravenous. Postoperative Plan: Patient's planned disposition post procedure is Outpatient. Informed Consent: Discussed plan with PROFESSIONAL CASTER. Anesthesia plan and risks discussed with patient. Consent and Attending signature: I and/or my designee have discussed the anesthesia plan, benefits, possible alternatives, parental presence at time of induction (if indicated), and clinically relevant risks that may include dental injury, unintentional awareness, and/or other complications. The patient and/or parent/legal guardian understand, and agree to proceed. All questions answered. IMEN COLLECTOR IMEN COLLECTOR IMEN COLLECTOR documented in this encounter Miscellaneous Notes * Perioperative Nursing Note - Deana Soria RN - 04/09/2019 8:53 AM CST Port a cath removed by Dr. Bunch. Intact in one piece. IMEN COLLECTOR * Op Note - Kianna Bunch MD [...] for all remaining portions of the case. IMEN COLLECTOR * Brief Op Note - Skylar Travis MD - 04/09/2019 8:43 AM CST Operative Progress Note Surgical Team: Surgeon(s) and Role: * Kianna Bunch MD PhD - Primary * Skylar Travis MD - Resident - Assisting Anesthesiologist: Ashlyn Fletcher MD PROFESSIONAL CASTER: Willis Bowling CRNA Sap Technical Architect: Salvador Cuello RN Scrub: ST Сергей Sap Technical Architect Second: Deana Soria RN DATE OF SURGERY [...] Bunch MD PhD at 04/09/2019 2:29 PM SPECIMEN COLLECTOR IMEN COLLECTOR IMEN COLLECTOR * Pre-Procedure Instructions - Lavonne Barlow NP - 03/26/2019 6:30 PM SPECIMEN COLLECTOR Center for Preoperative Assessment and Planning CPAP Clinic Location: [facility] The night before your [...] bowel prep or special diet before surgery IMEN COLLECTOR * Perioperative Nursing Note - Kandice Chairez RN - 03/20/2019 5:32 PM SPECIMEN COLLECTOR APPLIES SKIN CARE TO LEFT BREAST TISSUE R/T HEALING RADIATION JONES. IMEN COLLECTOR * Pre-Procedure Instructions - Kandice Chairez RN - 03/20/2019 5:01 PM SPECIMEN COLLECTOR Center for Preoperative Assessment and Planning Perioperative Nursing Note CPAP Clinic at [facility] ([facility]) Date: 03/20/19 Vitals: 03/20/19 1650 [...] Other - see comments [employer] [facility] [id number] Powerport Clearvue Airguard 8fr 1 Lumen Lightweight Intermediate Latex Free - [id number] - Implanted (Right) Chest Wall Inventory item: [facility] [facility] [id number] Powerport Clearvue Airguard 8fr 1 Lumen Lightweight Intermediate Latex Free Model/Cat number: [id number] Intern: [employer] Lot number: [id number] Size: 8F Device identifier: [id number] Device identifier type: GS1 As of 01/14/2018 [...] NOTORIZED AT HOSPITAL AND SCANNED INTO SYSTEM. IMEN COLLECTOR * Pre-Procedure Instructions - Kandice Chairez RN - 03/20/2019 4:57 PM SPECIMEN COLLECTOR ?? Map for surgery location given to [...] 2 days of your surgery, please call [phone] and ask for your surgeon's office, __JULIO C . IMEN COLLECTOR documented in this encounter Plan of Treatment Not on file documented as of this encounter Procedures Procedure Name Priority Date/Time Associated Diagnosis Comments REMOVAL PORT A CATH 04/09/2019 8:24 AM SPECIMEN COLLECTOR Malignant neoplasm of female breast, unspecified estrogen receptor status, unspecified laterality, unspecified site of breast (CMS/HCC) Case Notes 03/31: moved case from 04/07 to 04/09 per Deana phillips) POCT GLUCOSE DEVICE Routine 04/09/2019 7:01 AM SPECIMEN COLLECTOR documented in this encounter Results * POCT glucose (04/09/2019 7:01 AM SPECIMEN COLLECTOR) Glucose, POC 129 70 - 199 mg/dL LEVAR MICHELLE Blood specimen (specimen) 04/09/2019 7:01 AM SPECIMEN COLLECTOR 04/09/2019 7:01 AM SPECIMEN COLLECTOR us Kianna Bunch MD PhD LAB POCT ORDERABLES - ROSEMARY CE Final Result [facility] Department [place] [address] documented in this encounter Visit Diagnoses Diagnosis [...] at 0842, Intra-Op Given 04/09/2019 8:42 AM SPECIMEN COLLECTOR 3.5 mL Chest Lactated Ringer's (LR) infusion 30 mL/hr, intravenous, Continuous, Starting on Bonnie 04/09/19 at 0715, Pre-Op New Bag 04/09/2019 7:00 AM SPECIMEN COLLECTOR 50 mL/hr lidocaine (XYLOCAINE) 20 mg/mL (2 %) injection As needed, Starting on Bonnie 04/09/19 at 0842, Intra-Op, Indications: Administration of Local AnesthesiaIndications:Adm inistration of Local Anesthesia Given 04/09/2019 8:42 AM SPECIMEN COLLECTOR 3.5 mL Chest sodium chloride 0.9 % irrigation As needed, Starting on Bonnie 04/09/19 at 0849, Intra-Op Given 04/09/2019 8:49 AM SPECIMEN COLLECTOR 1,000 mL Surgical Site documented in this [...] Recently Administered Medications Times are shown in SPECIMEN COLLECTOR. Continuous Medication Order 04/07/2019 04/08/2019 04/09/2019 Lactated [...] 04/09/2019 documented in this encounter Care Teams Lens Molding Equipment Operator Relationship Specialty Start Date End Date Ravi Smith MD PCP - General 11/04/17 09/27/21 AftKianna MD PhD [address] [place] [address] Surgeon Surgical Oncology 11/22/17 Santiago Gilbert MD [address] [place] [address] Instant Print Operator Gastroenterology 11/22/17 Dmitry Sanderson MD [address] [place] [address] Referring Physician Colon and Rectal Surgery 12/03/1805/06 Ab[facility] Ventura [facility] [address] [place] [address] Medical Oncologist/Pickle Sorter Medical Oncology 12/03/18 Montse Thompson MD [facility] [address] [place] [address] Consulting Physician Gynecologic Oncology 12/03/18 Lela Hardy MD PhD [address] [place] [address] Radiation Oncologist Radiation Oncology 12/23/18 Kianna Bunch MD PhD [facility] [place] [address] Surgeon Surgical Oncology 12/23/18 09/17/21 documented as of this encounter
--- OUTSIDE RECORDS SUMMARY | 2024-04-24 14:53 | XMS_ITS | Encounter Summary ---
Author Organization [facility] Healthcare Address [address] [place] [address] Care Team Providers Care Scrap Materials Buyer Name Role Phone Ravi Smith MD Primary Care Provider [phone] Aft, Kianna Machado MD PhD Unavailable [phone] Santiago Gilbert MD Unavailable Dmitry Sanderson MD Unavailable [phone] Abbi Ventura MD Unavailable Montse Thompson MD Unavailable Lela Hardy MD PhD Unavailable Aft, Kianna Machado MD PhD Unavailable Encounter Details Date Type Department Care Team (Late st Contact Info) Description 02/13/2019 7:30 AM CDT - 02/13/2019 11:40 AM CDT Surgery [facility] Operating Room [address] [place] [address] Montse Thompson MD [phone] [place] [address] Diagnostic Laparoscopy Surgery Details Date/Time [...] file Legal Sex Female 1:06 AM MEAT 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 Gender Identity Not on file Sexual Orientation [...] Care Physician at Discharge: Ravi Smith MD [phone] Admission Date: 02/13/2019 Discharge Date: 02/14/2019 Admission Location: [facility] Primary Discharge Diagnosis: BRCA2+ mutation Secondary [...] 03/18/2019 1:40 PM Zulema Dior, [facility] SCC SC 04/01/2019 2:30 PM LAB, SC ONC ONC LAB [facility] ONC LAB 04/01/2019 3:00 PM Abbi Ventura MD ONC [facility] Oncology 04/27/2019 2:30 PM Mary Garcia MD PUL CTR 40 [facility] Pulmonary 06/04/2019 9:30 AM Jessica Swanson, [facility] ONC CAM 5F BOND 06/04/2019 11:20 AM [facility] BCT3 BJ N [facility] Main IMG [...] Jewell MD - 02/14/2019 6:30 AM CDT [facility] MANAGER CONTRACTING Oncology Post -Op note Subjective 63 y.o. [...] Breast Needle Localization partial mastectomy (L), Biopsy [place] Lymph Node With Lymphoscintigraphy (L), Insertion Port [...] OR today as planned Marlon Damon PGY-2 (RADIO ENGINEER) [phone] Cosigned by Montse Thompson MD at 02/13/2019 [...] Fellow ?? Anesthesiologist: Antony Lester Sr., MD CONTAINER WASHER: Lily Parada CRNA ?? Sfdc Architect: Cat Brar RN Sfdc Architect Relief: Kassie Levy RN Scrub: Cynthia Pascual PUBLIC HEALTH EPIDEMIOLOGIST: Delores Currie NP ?? DATE OF SURGERY [...] - Fellow Anesthesiologist: Antony Lester Sr., MD CONTAINER WASHER: Lily Parada CRNA Sfdc Architect: Cat Brar RN Sfdc Architect Relief: Kassie Levy RN Scrub: Cynthiakanika Pascual PUBLIC HEALTH EPIDEMIOLOGIST: Delores Currie NP DATE OF SURGERY : [...] * Phosphorus (02/13/2019 8:42 PM CDT) Pathologist [facility] Phosphorus, pl 3.6 2.3 - 4.5 mg/dL [facility] Blood specimen (specimen) 02/13/2019 8:42 PM CDT 02/13/2019 9:12 PM CDT [facility] BLOOD ORDERABLES Fin al Result Performing Organization Address [facility] Co de Phone Number [address] [address] * Magnesium (02/13/2019 8:42 PM CDT) Pathologist [facility] Magnesium 1.8 1.4 - 2.5 mg/dL [facility] Blood specimen (specimen) 02/13/2019 8:42 PM CDT 02/13/2019 9:12 PM CDT [facility] Ac Thompson MD LAB BLOOD ORDERABLES Fin al Result Performing Organization Address [facility] Co de Phone Number [facility] [address] [place] [address] * (ABNORMAL) CBC without differential (02/13/2019 8:42 PM CDT) Pathologist [facility] WBC 9.4 3.8 - 9.9 K/cumm [facility] Hgb 9.6(L) 11.9 - 15.5 g/dL [facility] Hct 29.5(L) 35.6 - 45.5 % [facility] Plt 136(L) 150 - 400 K/cumm [facility] MPV 9.6 9.1 - 12.3 fL [facility] RBC 3.23(L) 3.90 - 5.20 M/cumm [facility] MCV 91.3 81.3 - 96.4 fL [facility] MCH 29.7 27.1 - 33.3 pg [facility] MCHC 32.5 32.3 - 35.7 g/dL [facility] RDW CV 15.2(H) 11.1 - 14.9 % [facility] RDW SD 51.6(H) 35.7 - 48.1 fL [facility] NRBC abs 0.00 0.00 - 0.01 K/cumm [facility] Blood specimen (specimen) 02/13/2019 8:42 PM CDT 02/13/2019 9:11 PM CDT us [facility] Ac Thompson MD LAB BLOOD ORDERABLES Fin al Result [facility] [address] [place], [place] [id number] * (ABNORMAL) Basic metabolic panel (02/13/2019 8:42 PM CDT) Sodium 138 135 - 145 mmol/L [facility] Potassium, pl 3.9 3.3 - 4.9 mmol/L [facility] Chloride 103 97 - 110 mmol/L [facility] CO2 26 22 - 32 mmol/L [facility] Anion gap 9 2 - 15 mmol/L [facility] BUN 18 8 - 25 mg/dL [facility] Creatinine 1.17(H) 0.60 - 1.10 mg/dL [facility] Glucose 140 70 - 199 mg/dL [facility] [...] mg/dL [facility] Blood specimen (specimen) 02/13/2019 8:42 PM CDT 02/13/2019 9:12 PM CDT Montse Thompson MD LAB BLOOD ORDERABLES Fin al Result Performing Organization Address [facility] Co de Phone Number [address] [address] * POCT glucose (02/13/2019 11:15 AM CDT) Glucose, POC 128 70 - 199 mg/dL [facility] Blood specimen (specimen) 02/13/2019 11:15 AM CDT 02/13/2019 11:15 AM CDT Montse Thompson MD LAB POCT ORDERABLES - DE VICE Final Result Performing Organization Address [facility] Phone Number [address] [address] * POCT glucose (02/13/2019 10:39 AM CDT) Glucose, POC 163 70 - 199 mg/dL [facility] Blood specimen (specimen) 02/13/2019 10:39 AM CDT 02/13/2019 10:39 AM CDT Montse Thompson MD LAB POCT ORDERABLES - DE VICE Final Result Performing Organization Address [facility] Phone Number [address] [address] * Surgical pathology (02/13/2019 10:02 AM CDT) 02/13/2019 10:0 2 AM CDT 02/13/2019 12:14 PM CDT Narrative 02/20/2019 8:35 PM CDT EPIC results best viewed via link to PDF [facility]a Mu[facility]iz Laboratory [place] [address] [place] [address] SURGICAL PATHOLOGY REPORT FINAL Patient Name: ?? ALEAH GERBER Gender: ??F : ??1955 (Age: 63) Address: ??[address] [place] [address] Hospital #: ??[id number] Taken:02/13/2019 Received:02/13/2019 Reported: 02/20/2019 Patient Type: [facility] ?? Service: Surgery Location: [place] [address] Physician(s): ??Montse Thompson M.D. Ravi Smith M.D. [...] tube attached to uterine cornua, A9 and R41-wnnaj ovary serial sections, A13 and Z37-apcli fallopian tube serial sections, C74-prqoqhq of fallopian tube attached to uterine cornua, M85-avovydut exocervix, C55-rhmoptsk endomyometrium, K69-wmbhqeawh exocervix, P82-maodgulva endomyometrium. ??Jar 2. ?? axa/02/13/2019 18:21 Lis [...] [facility] Center as part of an ongoing water quality technician program and in compliance with federally [...] determined by the Surgical Pathology Department of [facility]. ??It has not been cleared or approved by the U. S. Food and Drug Administration. IMAGES AND SCANNED DOCUMENTS, IF INCLUDED, ONLY VIEWABLE IN PDF VERSION OF REPORT us Premal Ac Thomposn MD LAB PATHOLOGY ORDERABLES Final Result * Cytology (02/13/2019 8:51 AM CDT) Fluid (Pelvic Washing (Cytology)) 02/13/2019 8:51 AM CDT Narrative PATHOLOGY [facility] - 02/16/2019 3:34 PM CDT EPIC results best viewed via link to PDF [facility] Galilea Muñiz [facility] [place] [address] CYTOPATHOLOGY REPORT FINAL Patient Name: ?? ALEAH GERBER Gender: ??F : ??1955 (Age: 63) Address: ??[address] [place], [place] ??[address] Hospital #: ??[id number] Taken:02/13/2019 Received:02/13/2019 Reported: 02/16/2019 Patient Type: [facility] ?? Service: Surgery Location: [place] [address] Physician(s): ??David Locke M.D. FINAL DIAGNOSIS A. Pelvic washings: ? - Negative for malignancy rcwp/02/16/2019 15:34 By this signature, I attest that the above diagnosis is based upon my personal examination of the slides(and/or other material indicated in the diagnosis). Neil Ball, DO Report Electronically Reviewed and Signed Out By ??Neil Ball DO 02/16/2019 15:34:16 Duglas Vázquez, CT(ASCP), [facility] Gross Description A. Pelvic washings: 50 ml [...] determined by the Surgical Pathology Department at [facility] as part of an ongoing water quality technician program and in compliance with federally [...] determined by the Surgical Pathology Department of [facility]. ??It has not been cleared or approved by the U. S. Food and Drug Administration. [facility] MD LAB CYTOLOGY ORDERABLES Final Result [facility] 3rd Floor [place], [place] [phone] * POCT glucose (02/13/2019 6:44 AM CDT) Glucose, POC 115 70 - 199 mg/dL [facility] Blood specimen (specimen) 02/13/2019 6:44 AM CDT 02/13/2019 6:44 AM CDT Montse Thompson MD LAB POCT ORDERABLES - DE VICE Final Result Performing Organization Address [facility] Co de Phone Number [facility] [address] [place] [address] documented in this encounter Visit Diagnoses Diagnosis [...] puff 1 puff, inhalation, 2 times daily (supervisor correspondence section), First dose (after last modification) on Sat02/13/19 at 2100, Rinse mouth with water after use. Do not swallow. Given 02/14/2019 8:26 AM CDT 1 puff Given 02/13/2019 9:17 PM CDT 1 puff fluticasone propion-salmeterol (ADVAIR DISKUS) 250-50 mcg/dose diskus inhaler 1 puff 1 puff, inhalation, 2 times daily (supervisor correspondence section), First dose (after last modification) on Sat02/14/19 [...] 0339 (Given - Provid er: Deyanira Boothe RN)0818 (Given - Provider: Olamide Coleman) docusate sodium [...] (CANCELED) 1 puff, inhalation, 2 times daily (supervisor correspondence section), First dose (after last modification) on Sat02/13/19 at 2100, Rinse mouth with water after use. Do not swallow. 2116 (Given - Provider: Jac Mccarty, ART DIRECTOR) 08 (Given - Provider: Olamide Coleman) fluticasone propion-salmeterol (ADVAIR DISKUS) 250-50 mcg/dose diskus inhaler 1 puff 1 puff, inhalation, 2 times daily (supervisor correspondence section), First dose (after last modification) on Sat02/14/19 [...] 02/13/2019 documented in this encounter Care Teams Scrap Materials Buyer Relationship Specialty Start Date End Date Ravi Smith MD PCP - General 11/04/17 09/27/21 Aft, Kianna Machado MD PhD [address] [place] [address] Surgeon Surgical Oncology 11/22/17 Santiago Gilbert MD [address] [place] [address] Natural Resources Extension Educator Gastroenterology 11/22/17 Dmitry [place]erson MD [address] [place] [address] Referring Physician Colon and Rectal Surgery 12/03/1805/06 Abbi Ventura MD [address] [place] [address] Medical Oncologist/Paper Coating Machine Operator Medical Oncology 12/03/18 Montse Thompson MD [address] [place] [address] Consulting Physician Gynecologic Oncology 12/03/18 Lela Hardy MD PhD [address] [place], [place] [address] Radiation Oncologist Radiation Oncology 12/23/18 Aft, Kianna Machado MD PhD [address] [place] [address] Surgeon Surgical Oncology 12/23/18 09/17/21 documented as of this encounter
--- OUTSIDE RECORDS SUMMARY | 2024-04-24 14:53 | XMS_ITS | Encounter Summary ---
Author Organization [facility] Address [address] [place] [address] Phone Care Team Providers Care Vp Patient Name Role Phone Ravi Smith MD Primary Care Provider [phone] Aft, Kianna Machado MD PhD Unavailable Santiago Gilbert MD Unavailable [phone] Dmitry Sanderson MD Unavailable [phone] Abbi Ventura MD Unavailable Montse Thompson MD Unavailable Lela Hardy MD PhD Unavailable Aft, Kianna Machado MD PhD Unavailable [phone] Encounter Details Date Type Department Care Team (Late st Contact Info) Description 06/03/2019 Orders Only [facility] Oncology [address] [place] [address] Abbi Venutra MD [address] [place] [address] Malignant neoplasm of descending colon (CMS/HCC) (Primary [...] on file Legal Sex Female 1:06 AM MEDICINE AND HEALTH SERVICE 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 Gender Identity Not on file Sexual Orientation Not on file documented as of this encounter Plan of Treatment Not on file documented as of this encounter Visit Diagnoses Diagnosis 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)- Primary Malignant neoplasm of descending colon documented in this encounter Care Teams Vp Patient Relationship Specialty Start Date End Date Ravi Smith MD PCP - General 11/04/17 09/27/21 Aft, Kianna Machado MD PhD [address] [place] [address] Surgeon Surgical Oncology 11/22/17 Santiago Gilbert MD [address] [place] [address] House Servant Gastroenterology 11/22/17 Dmitry Sanderson MD [address] [place] [address] Referring Physician Colon and Rectal Surgery 12/03/1805/06 Abbi Ventura MD [address] [place] [address] Medical Oncologist/Jackhammer Splitter Operator Medical Oncology 12/03/18 Montse Thompson MD [address] [place] [address] Consulting Physician Gynecologic Oncology 12/03/18 Lela Hardy MD PhD [address] [place] [address] Radiation Oncologist Radiation Oncology 12/23/18 Aft, Kianna Machado MD PhD [address] [place] [address] Surgeon Surgical Oncology 12/23/18 09/17/21 documented as of this encounter
--- OUTSIDE RECORDS SUMMARY | 2024-04-24 14:53 | XMS_ITS | Encounter Summary ---
Author Organization [facility] Address [address] [place] [address] Phone Care Team Providers Care Generator Rebuilder Name Role Phone Ravi Smith MD Primary Care Provider [phone] Aft, Kianna Machado MD PhD Unavailable [phone] Santiago Gilbert MD Unavailable [phone] Dmitry Sanderson MD Unavailable [phone] Abbi Ventura MD Unavailable Montse Thompson MD Unavailable [phone] eLla Hardy MD PhD Unavailable [phone] Aft, Kianna Machado MD PhD Unavailable [phone] Reason for Referral * Diagnostic Imaging (Routine) - Closed Specialty Diagnoses / Procedures Referred By Contac t Referred To Contact Diagnoses HX: breast cancer Procedures Diagnostic Mammogram Bilateral W Jessica Haley CNS Phone: tel: fax: [address] [address] Referral ID Status Reason Start Date Expiration Date Visits Re quested Visits Authorized [id number] Closed 04/23/2019 11/01/2020 1 1 RING MACHINE OPERATOR Encounter Details Date Type Department Care Team (Late st Contact Info) Description 04/23/2019 Orders Only [facility] Surgery [address] [facility] 5th [place] [address] [place] [address] Jessica Swanson, [facility] [address] [facility] [address] [place] [address] HX: breast cancer (Primary Dx) Social History [...] on file Legal Sex Female 1:06 AM TAPERING MACHINE OPERATOR Gender Identity Not on file [...] suspicious change involving either breast. Jessica Swanson COUNTER CASER IMG MAMMO PROCEDURES Final R esult documented in this encounter Visit Diagnoses Diagnosis HX: breast cancer- Primary Personal history of malignant neoplasm of breast HX: breast cancer Personal history of malignant neoplasm of breast documented in this encounter Care Teams Generator Rebuilder Relationship Specialty Start Date End Date Ravi Smith MD PCP - General 11/04/17 09/27/21 Aft, Kianna Machado MD PhD [address] [place] [address] Surgeon Surgical Oncology 11/22/17 Santiago Gilbert MD [address] [place] [address] Front Load Trash Truck Driver Gastroenterology 11/22/17 Dmitry Sanderson MD [address] [place] [address] Referring Physician Colon and Rectal Surgery 12/03/1805/06 Abbi Ventura MD [address] [place] [address] [address] [place] [address] Medical Oncologist/Debt And Budget Counselor Medical Oncology 12/03/18 Montse Thompson MD [address] [place] [address] [address] [place] [address] Consulting Physician Gynecologic Oncology 12/03/18 Lela Hardy MD PhD [address] [place] [address] [address] [place] [address] Radiation Oncologist Radiation Oncology 12/23/18 Aft, Kianna Machado MD PhD [address] [place] [address] [address] [place] [address] Surgeon Surgical Oncology 12/23/18 09/17/21 documented as of this encounter
--- OUTSIDE RECORDS SUMMARY | 2024-04-24 14:53 | XMS_ITS | Encounter Summary ---
Author Organization [facility] Facility Care Team Providers Care Manager Of Regulatory Affairs Name Role Phone Ravi Smith MD Primary Care Provider [phone] Aft, Kianna Machado MD PhD Unavailable [phone] Santiago Gilbert MD Unavailable [phone] Dmitry Sanderson MD Unavailable [phone] Abbi Ventura MD Unavailable Montse Thompson MD Unavailable [phone] Lela Hardy MD PhD Unavailable [phone] Aft, Kianna Machado MD PhD Unavailable [phone] Encounter Details Date Type Department Care Team [...] file Legal Sex Female 1:06 AM MACHINE OR MACHINERY 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 Gender Identity Not on file Sexual Orientation Not on file documented as of this encounter Plan of Treatment Not on file documented as of this encounter Visit Diagnoses Not on filedocumented in this encounter Care Teams Manager Of Regulatory Affairs Relationship Specialty Start Date End Date Ravi Smith MD PCP - General 11/04/17 09/27/21 Kianna Bunch MD PhD [address] [place] [address] Surgeon Surgical Oncology 11/22/17 Santiago Gilbert MD [address] [place] [address] Windows Server Engineer Gastroenterology 11/22/17 Dmitry Sanderson MD [address] [place] [address] Referring Physician Colon and Rectal Surgery 12/03/1805/06 Abbi Ventura MD [address] [place] [address] [address] [place] [address] Medical Oncologist/Insurance Claims Adjuster Medical Oncology 12/03/18 Montse Thompson MD [address] [place] [address] [address] [place] [address] Consulting Physician Gynecologic Oncology 12/03/18 Lela Hardy MD PhD [address] [place] [address] Radiation Oncologist Radiation Oncology 12/23/18 Kianna Bunch MD PhD [address] [place] [address] Surgeon Surgical Oncology 12/23/18 09/17/21 documented as of this encounter
--- OUTSIDE RECORDS SUMMARY | 2024-04-24 14:53 | XMS_ITS | Encounter Summary ---
Author Organization [facility] Address [address] [place] [address] Phone Care Team Providers Care Yarn Bleaching Machine Operator Name Role Phone Ravi Smith MD Primary Care Provider [phone] Aft, Kianna Machado MD PhD Unavailable [phone] Santiago Gilbert MD Unavailable [phone] Dmitry Sanderson MD Unavailable [phone] Abbi Ventura MD Unavailable Montse Thompson MD Unavailable [phone] Lela Hardy MD PhD Unavailable Aft, Kianna Machado MD PhD Unavailable [phone] Reason for Visit * Reason Comments Post-op Encounter Details Date Type Department Care Team (Late st Contact Info) Description 04/23/2019 12:40 PM FAMILY MEDICINE PHYSICIAN Office Visit [facility] Surgery [address] [facility] 5th [place] [address] [place] [id number] Jessica Swanson, [facility] [address] [address] History of breast cancer (Primary Dx) Social [...] file Legal Sex Female 1:06 AM FAMILY MEDICINE PHYSICIAN Gender Identity Not on file Sexual Orientation Not on file documented as of this encounter Last Filed Vital Signs Vital Sign Reading Time Taken Comments Blood Pressure - - Pulse - - Temperature - - Respiratory Rate - - Oxygen Saturation - - Inhaled Oxygen Concentration - - Weight 105.7 kg (233 lb) 04/23/2019 1:16 PM FAMILY MEDICINE PHYSICIAN Height 175.3 cm (5' 9 ) 04/23/2019 1:16 PM FAMILY MEDICINE PHYSICIAN Body Mass Index 34.41 04/23/2019 1:16 PM FAMILY MEDICINE PHYSICIAN documented in this encounter Progress Notes * Jessica Swanson, COLD PRESS OPERATOR - 04/23/2019 12:40 PM CST Section of Surgical Oncology and Endocrinology [facility] [address], [address], [place] [address] - NAME: Aleah Gerber : 1955 DATE: [...] on 11/05/2017 which demonstrated invasive ductal carcinoma, ER/TX negative, HER 2 negative. She then underwent [...] At risk for sleep apnea, Breast cancer ([facility]) (2017), Breast cancer ([facility]) (2017), Colon cancer ([facility]), Colon cancer ([facility]) (2017), Colon polyps, COPD (chronic obstructive pulmonary disease) ([facility]), Depression, DVT (deep veinthrombosis) in (05/2017), DVT (deep venous thrombosis) ([facility]) (05/2018), Former smoker, History of ileus (12/2017), Hypercholesteremia, Hypertension, Leg swelling, Lower extremity edema,Memory loss, Mucositis, Obesity, Personal history of other medical treatment, Personal history of other medical treatment, SOB (shortness of breath), SOB (shortness of breath) (2018), TIA (transient i schemic attack) (2007), Type 2 diabetes mellitus ([facility]), and Vascular disease. She also has no past medical history of Acute respiratory failure requiring reintubation ([facility]), Awareness under anesthesia, Delayed emergence from general anesthesia, Diabetes mellitus type I ([facility]), Hard to intubate, Malignant hyperthermia, Motion sickness, [...] Breast Needle Localization partial mastectomy (L), Biopsy Halfway Lymph Node With Lymphoscintigraphy (L), Insertion Port [...] on phone: None Gets together: None Attends protestant service: None Active member of club or [...] to call with questions. Jessica Swanson, MSN, BAND ATTACHER- Endocrine and Oncology Surgery I have reviewed the history and physical, social history and surgical history and I concur with thefindings. Kianna Bunch M.D. parking supervisor, Endocrine Oncology surgery Cosigned by Kianna Bunch MD PhD at 04/24/2019 12:34 PM FAMILY MEDICINE PHYSICIAN LY MEDICINE PHYSICIAN LY MEDICINE PHYSICIAN documented in this encounter Plan of Treatment [...] 0 added in this encounter Care Teams Yarn Bleaching Machine Operator Relationship Specialty Start Date End Date Ravi Smith MD PCP - General 11/04/17 09/27/21 Kianna Bunch MD PhD [address] [place] [address] Surgeon Surgical Oncology 11/22/17 Santiago Gilbert MD [address] [place] [address] Client Strategist Gastroenterology 11/22/17 Dmitry Sanderson MD [address] [place] [address] Referring Physician Colon and Rectal Surgery 12/03/1805/06 Abbi Ventura MD [address] [place] [address] [address] [place] [address] Medical Oncologist/Conference Service Coordinator Medical Oncology 12/03/18 Montse Thompson MD [address] [place] [address] [address] [place] [address] Consulting Physician Gynecologic Oncology 12/03/18 Lela Hardy MD PhD [address] [facility] [address] [address] [address] [place] [address] Radiation Oncologist Radiation Oncology 12/23/18 Aft, Kianna Machado MD PhD [address] [facility] [address] [place] [address] Surgeon Surgical Oncology 12/23/18 09/17/21 documented as of this encounter
--- OUTSIDE RECORDS SUMMARY | 2024-04-24 14:53 | XMS_ITS | Encounter Summary ---
Author Organization [facility] Healthcare Address [address] [place] [address] Care Team Providers Care Obstetrics/Gynecology Nurse Name Role Phone Ravi Smiht MD Primary Care Provider [phone] Aft, Kianna Machado MD PhD Unavailable [phone] Santiago Gilbert MD Unavailable [phone] Dmitry Sanderson MD Unavailable [phone] Abbi Ventura MD Unavailable Montse Thompson MD Unavailable [phone] Lela Hardy MD PhD Unavailable [phone] Aft, Kianna Machado MD PhD Unavailable [phone] Encounter Details Date Type Department Care Team (Late st Contact Info) Description 04/09/2019 8:19 AM FILM VAULT SUPERVISOR Anesthesia Event [facility] Operating Room [facility] [address] [place] [address] Ashlyn Fletcher MD [address] [place] [address] Lety Landry, KAM [address] [place] [address] Anesthesia Record Procedure Summary Procedure Name Responsible [...] on file Legal Sex Female 1:06 AM FILM VAULT SUPERVISOR Gender Identity Not on file Sexual Orientation Not on file documented as of this encounter OR Notes * Anesthesia Postprocedure Evaluation - Anita Ozuna MD - 04/09/2019 9:39 AM CST Patient: Aleah Gerber Procedure Summary Date: 04/09/19 Room / Location: [facility] OR POD 4 ROOM A / [facility] OR POD 4 Anesthesia Start: 818 [...] acceptable Pt is: normothermic Nausea/Vomiting status: none VAULT SUPERVISOR * Anesthesia Preprocedure Evaluation - Ashlyn Fletcher [...] due to asthma Comments: Established w a dot etcher apprentice this past year Hepatic / Heme [...] for VIOLETTE. Patient has upcoming appointment w/ dot etcher apprentice in April w/ plans to discuss [...] day after surgery. Sent Epic Message via [employer]ia in surgeon's office. Please call the CPAP attending ([phone]) to revisit bleeding risk assessment, with any [...] by telephone and in writing sent via [employer] mail. Patient verbalized understanding of preoperative plan. [...] Breast Needle Localization partial mastectomy (L), Biopsy [place] Lymph Node With Lymphoscintigraphy (L), Insertion Port [...] There are no prior chest radiographs at [facility] for comparison. A right internal jugular [...] Medication protocol when under care of a TURBINE ENGINEER Planned anesthesia: MAC Induction: Induction: intravenous. Postoperative Plan: Patient's planned disposition post procedure is Outpatient. Informed Consent: Discussed plan with TURBINE ENGINEER. Anesthesia plan and risks discussed with patient. Consent and Attending signature: I and/or my designee have discussed the anesthesia plan, benefits, possible alternatives, parental presence at time of induction (if indicated), and clinically relevant risks that may include dental injury, unintentional awareness, and/or other complications. The patient and/or parent/legal guardian understand, and agree to proceed. All questions answered. VAULT SUPERVISOR VAULT SUPERVISOR VAULT SUPERVISOR documented in this encounter Plan of Treatment Not on file documented as of this encounter Visit Diagnoses Not on filedocumented in this encounter Administered Medications Inactive Administered Medications - up to 3 most recent administrations Medication Order MAR Action Action Date Dose Rate Site ceFAZolin (ANCEF) injection intravenous, As needed, Starting on Bonnie 04/09/19 at 0828, Anesthesia Intra-op Given 04/09/2019 8:28 AM FILM VAULT SUPERVISOR 2,000 mg dexAMETHasone (DECADRON) 4 mg/mL injection Administer over 2 Minutes, As needed, Starting on Bonnie 04/09/19 at 0831, Anesthesia Intra-op Given 04/09/2019 8:31 AM FILM VAULT SUPERVISOR 4 mg famotidine (PEPCID) injection Administer over 2 Minutes, As needed, Starting on Bonnie 04/09/19 at 0831, Anesthesia Intra-op Given 04/09/2019 8:31 AM FILM VAULT SUPERVISOR 20 mg fentaNYL (SUBLIMAZE) preservative free injection intravenous, As needed, Starting on Bonnie 04/09/19 at 0828, Anesthesia Intra-op Given 04/09/2019 8:44 AM FILM VAULT SUPERVISOR 25 mcg Given 04/09/2019 8:28 AM FILM VAULT SUPERVISOR 25 mcg Lactated Ringer's (LR) infusion 30 mL/hr, intravenous, Continuous, Starting on Bonnie 04/09/19 at 0715, Pre-Op New Bag 04/09/2019 7:00 AM FILM VAULT SUPERVISOR 50 mL/hr lidocaine PF (XYLOCAINE) 10 mg/mL (1 %) preservative free injection As needed, Starting on Bonnie 04/09/19 at 0834, Anesthesia Intra-op Given 04/09/2019 8:34 AM FILM VAULT SUPERVISOR 50 mg midazolam (VERSED) preservative free injection intravenous, Administer over 2 Minutes, As needed, Starting on Bonnie 04/09/19 at 0819, Anesthesia Intra-op Given 04/09/2019 8:44 AM FILM VAULT SUPERVISOR 1 mg Given 04/09/2019 8:19 AM FILM VAULT SUPERVISOR 2 mg ondansetron (ZOFRAN) injection Administer over 2 Minutes, As needed, Starting on Bonnie 12 at 0831, Anesthesia Intra-op Given 04/09/2019 8:31 AM FILM VAULT SUPERVISOR 4 mg propofol (DIPRIVAN) IV intravenous, As needed, Starting on Bonnie 04/09/19 at 0834, Anesthesia Intra-op Given 04/09/2019 8:34 AM FILM VAULT SUPERVISOR 100 mg propofol (DIPRIVAN) IV intravenous, Continuous PRN, Starting on Bonnie 04/09/19 at 0834, Anesthesia Intra-op Rate/Dose Change 04/09/2019 8:44 AM FILM VAULT SUPERVISOR 140 mcg/kg/min 88.96 mL/hr New Bag 04/09/2019 8:34 AM FILM VAULT SUPERVISOR 130 mcg/kg/min 82.6 mL/h r documented in this encounter Care Teams Obstetrics/Gynecology Nurse Relationship Specialty Start Date End Date Ravi Smith MD PCP - General 11/04/17 09/27/21 Aft, Kianna Machado MD PhD [address] [place] [address] Surgeon Surgical Oncology 11/22/17 Santiago Gilbert MD [address] [place] [address] Quality Control Manager Gastroenterology 11/22/17 Dmitry Sanderson MD [address] [place] [address] Referring Physician Colon and Rectal Surgery 12/03/1805/06 Abbi Ventura MD [address] [place] [address] Medical Oncologist/Fruit Cutter Medical Oncology 12/03/18 Montse Thompson MD [address] [place], [place] [address] Consulting Physician Gynecologic Oncology 12/03/18 Lela Hardy MD PhD [address] [place] [address] Radiation Oncologist Radiation Oncology 12/23/18 Aft, Kianna Machado MD PhD [address] [facility] [address] [place] [address] Surgeon Surgical Oncology 12/23/18 09/17/21 documented as of this encounter
--- OUTSIDE RECORDS SUMMARY | 2024-04-24 14:53 | XMS_ITS | Encounter Summary ---
Author Organization [facility] Address [address] [place] [address] Phone Care Team Providers Care Tools Programmer Name Role Phone Ravi Smith MD Primary Care Provider [phone] Aft, Kianna Machado MD PhD Unavailable [phone] Santiago Gilbert MD Unavailable [phone] Dmitry Sanderson MD Unavailable [phone] Abbi Ventura MD Unavailable Montse Thompson MD Unavailable [phone] Lela Hardy MD PhD Unavailable [phone] Aft, Kianna Machado MD PhD Unavailable [phone] Reason for Referral * Pulmonology (Routine) - Closed Specialty Diagnoses / Procedures Referred By Contac t Referred To Contact Pulmonology Diagnoses Other acute pulmonary embolism without acute cor pulmonale (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) Chronic obstructive pulmonary disease, unspecified COPD type (HCC) Procedures Pulmonary Function Test -[facility]- [facility]; Meth Challenge Cristobal Dong MD [address] [place] [address] Phone: tel: fax: [facility] [address] [facility] [address] [place] [address] Phone: tel: fax: Referral ID Status Reason Start Date Expiration Date Visits Re quested Visits Authorized [id number] Closed 02/05/2019 08/16/2020 99 99 GER PATIENT Reason for Visit * Pulmonology (Routine) - Closed Specialty Diagnoses / Procedures Referred By Contac t Referred To Contact Pulmonology Diagnoses Other acute pulmonary embolism without acute cor pulmonale (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) Chronic obstructive pulmonary disease, unspecified COPD type (HCC) Procedures Pulmonary Function Test -[facility]- [facility]; Meth Challenge Cristobal Dong MD [address] [place] [facility] [address] [place] [address] Phone: tel: fax: [facility] [address] [facility] [address] [place] [address] Phone: tel: fax: Referral ID Status Reason Start Date Expiration Date Visits Re quested Visits Authorized [id number] Closed 02/05/2019 08/16/2020 99 99 Encounter Details Date Type Department Care Team (Latest Contact Info) Description 03/12/2019 8:45 AM MANAGER PATIENT - 03/12/2019 11:59 PM MANAGER PATIENT Hospital Encounter [facility] [address] [facility] [address] [place] [id number] Other acute pulmonary embolism without acute cor [...] file Legal Sex Female 1:06 AM MANAGER PATIENT Gender Identity Not on file Sexual Orientation [...] FUNCTION TEST (PFT) Routine 03/12/2019 10:01 AM MANAGER PATIENT Other acute pulmonary embolism without acute cor pulmonale (CMS/HCC) Malignant neoplasm of descending colon (CMS/HCC) Chronic obstructive pulmonary disease, unspecified COPD type (CMS/HCC) documented in this encounter Results * Pulmonary Function Test - (03/12/2019 10:01 AM MANAGER PATIENT) FVC PRED 3.71 0.05 - 9.99 Liters [...] 76 0 - 12 % [facility] YOM58-22% PRED 2.47 0 - 12 L/sec [facility] ALQ57-68% PRE 1.89 0 - 12 L/sec [facility] KXS46-76% %PRE PRED 76 0 - 300 % [facility] XNG49-76% POST 1.40 0 - 12 L/sec [facility] HCF78-62% %POST PRED 56 0 - 300 % [facility] QKN87-88% %CHNG -26 0 - 300 % [facility] [...] 4 0 - 300 % [facility] RSC928% %CHNG 7 % [facility] PIF PRE 5.35 0 - 18 L/sec [facility] PIF POST 5.28 0 - 18 L/sec [facility] PIF %CHNG -1 0 - 300 % [facility] FEV6 PRE 2.63 0 - 12 Liters [facility] FEV6 POST 2.56 0 - 12 Liters [facility] FEV6 % CHG -3 0 - 300 % [facility] FEV1/FEV6 PRE 79 0 - 12 % [facility] FEV1/FEV6 POST 78 0 - 12 % [facility] VC PRED 3.54 0.05 - 9.99 Liters [facility] TLC PRED 5.79 0.05 - 11.99 Liters [facility] RV PRED 2.25 0.05 - 9.99 Liters [facility] RV/TLC PRED 40 0 - 300 % [facility] FRC N2 PRED 2.81 0.05 - 9.99 Liters [facility] FRC PL PRED 3.31 0.05 - 9.99 Liters [facility] ERV PRED 1.22 0.05 - 9.99 Liters [facility] DLCO PRED 27.6 0.05 - 99.99 mL/mmHg/min [facility] DL ADJ PRED 27.6 1 - 2 mL/mmHg/min [facility] DLCO/VA PRED 5.05 mL/mHg/min/ L [facility] DL/VA ADJ PRED 3.83 mL/mHg/min/ L [facility] RAW PRED 1.14 cmH2O/L/sec [facility] GAW PRED 0.794 L/sec/cmH2O [facility] SRAW PRED 3.76 cmH2O/L/s/L [facility] SGAW PRED 0.261 L/s/cmH2O/L [facility] Anatomical Region Laterality Modality PFT 03/12/2019 9:02 AM MANAGER PATIENT Narrative 03/17/2019 11:39 AM MANAGER PATIENT SEE PDF Cristobal Dong MD PFT ORDERABLES Final Result documented in this encounter Visit Diagnoses Diagnosis Other acute pulmonary embolism without acute cor pulmonale (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) Malignant neoplasm of descending colon Chronic obstructive pulmonary disease, unspecified COPD type (HCC) documented in this encounter Care Teams Tools Programmer Relationship Specialty Start Date End Date Ravi Smith MD PCP - General 11/04/17 09/27/21 AftKianna MD PhD [address] [place] [address] Surgeon Surgical Oncology 11/22/17 Santiago Gilbert MD [address] [place] [address] Rubber Goods Inspector Gastroenterology 11/22/17 Dmitry Sanderson MD [address] [place] [address] Referring Physician Colon and Rectal Surgery 12/03/1805/06 Abbi Ventura MD [address] [place] [address] [facility] ARNOLD [address] [place] [address] Medical Oncologist/Screen Door Maker Medical Oncology 12/03/18 Montse Thompson MD [address] [place] [address] [address] [place] [address] Consulting Physician Gynecologic Oncology 12/03/18 Lela Hardy MD PhD [address] [place] [address] [address]UAN F ARNOLD [address] [place] [address] Radiation Oncologist Radiation Oncology 12/23/18 AftKianna MD PhD [facility] [address] [place] [address] Surgeon Surgical Oncology 12/23/18 09/17/21 documented as of this encounter
--- OUTSIDE RECORDS SUMMARY | 2024-04-24 14:53 | XMS_ITS | Encounter Summary ---
Author Organization [facility] Healthcare Address [address] [place] [address] Care Team Providers Care Quality Assurance Advisor Name Role Phone Ravi Smith MD Primary Care Provider [phone] Aft, Kianna Machado MD PhD Unavailable [phone] Santiago Gilbert MD Unavailable [phone] Dmitry Sanderson MD Unavailable [phone] Abbi Ventura MD Unavailable Montse Thompson MD Unavailable [phone] Lela Hardy MD PhD Unavailable [phone] Aft, Kianna Machado MD PhD Unavailable [phone] Encounter Details Date Type Department Care Team (Latest Contact Info) Description 02/13/2019 5:03 AM CDT - 02/14/2019 11:58 AM CDT Hospital Encounter [facility] [address] [place] [address] Montse Thompson MD [address] [facility] [phone] [place] [address] Malignant neoplasm of upper-inner quadrant [...] file Legal Sex Female 1:06 AM 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 Gender Identity Not on file Sexual [...] 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 Other jail (current) drug therapy - OTHER [facility] (CURRENT) DRUG THERAPY intermediate (current) use of anticoagulants - [facility] (CURRENT) USE OF ANTICOAGULANTS Long-term (current) use of anticoagulants intermediate (current) use of oral hypoglycemic drugs - [facility] (CURRENT) USE OF ORAL HYPOGLYCEMIC DRUGS Anxiety [...] Care Physician at Discharge: Ravi Smith MD [phone] Admission Date: 02/13/2019 Discharge Date: 02/14/2019 [facility] Primary Discharge Diagnosis: BRCA2+ mutation Secondary [...] 03/18/2019 1:40 PM Zulema Dior NP [facility] SC 04/01/2019 2:30 PM LAB, [facility] ONC ONC LAB [facility] ONC LAB 04/01/2019 3:00 PM Abbi Ventura MD ONC [facility] Oncology 04/27/2019 2:30 PM Mary Garcia MD [facility] 40 [facility] Pulmonary 06/04/2019 9:30 AM Jessica Swanson, BLAYNE ONC CAM 5F BOND 06/04/2019 11:[address] [facility] BCT3 [facility] N CT [facility] Main IMG 08/18/2019 12:15 PM PFT [...] Jewell MD - 02/14/2019 6:[address] [facility] DROSS SKIMMER Oncology Post -Op note Subjective 63 y.o. [...] Breast Needle Localization partial mastectomy (L), Biopsy Bailey Lymph Node With Lymphoscintigraphy (L), Insertion Port [...] OR today as planned Marlon Damon PGY-2 (PHARMACY BENEFITS COORDINATOR) [phone] Cosigned by Montse Thompson MD at 02/13/2019 [...] Fellow ?? Anesthesiologist: Antony Lester Sr., MD [employer]: Lily Parada CRNA ?? Magnetic Resonance Imaging Coordinator: Cat Brar RN Magnetic Resonance Imaging Coordinator Relief: Kassie Levy RN Scrub: Cynthia Pascual [facility]: Delores Currie NP ?? DATE OF SURGERY [...] - Fellow Anesthesiologist: Antony Lester Sr., MD [employer]: Lily Parada CRNA Magnetic Resonance Imaging Coordinator: Cat Brar RN Magnetic Resonance Imaging Coordinator Relief: Kassie Levy RN Scrub: [facility] [place] TIMBER SKIDDER: Delores Currie NP DATE OF SURGERY : [...] ORDERABLES Fin al Result Performing Organization Address [facility]/ZIP Co de Phone Number [address] [address] * Magnesium (02/13/2019 8:42 PM CDT) Pathologist [facility] Magnesium 1.8 1.4 - 2.5 mg/dL [facility] Blood specimen (specimen) 02/13/2019 8:42 PM CDT 02/13/2019 9:12 PM CDT [facility] Ac Thompson MD LAB BLOOD ORDERABLES Fin al Result Performing Organization Address [facility] de Phone Number [address] [address] * (ABNORMAL) CBC without differential (02/13/2019 8:42 PM CDT) [facility] WBC 9.4 3.8 - 9.9 K/cumm [facility] Hgb 9.6(L) 11.9 - 15.5 g/dL [facility] Hct 29.5(L) 35.6 - 45.5 % [facility] Plt 136(L) 150 - 400 K/cumm [facility] MPV 9.6 9.1 - 12.3 fL [facility] RBC 3.23(L) 3.90 - 5.20 M/cumm [facility] MCV 91.3 81.3 - 96.4 fL [facility] MCH 29.7 27.1 - 33.3 pg [facility] MCHC 32.5 32.3 - 35.7 g/dL [facility] RDW CV 15.2(H) 11.1 - 14.9 % [facility] RDW SD 51.6(H) 35.7 - 48.1 fL [facility] NRBC abs 0.00 0.00 - 0.01 K/cumm [facility] Blood specimen (specimen) 02/13/2019 8:42 PM CDT 02/13/2019 9:11 PM CDT Premmaura Thompson MD LAB BLOOD ORDERABLES Fin al Result Performing Organization Address City/[facility]/ZIP Co de Phone Number [facility] [address] [place] [address] * (ABNORMAL) Basic metabolic panel (02/13/2019 8:42 PM CDT) Sodium 138 135 - 145 mmol/L [facility] Potassium, pl 3.9 3.3 - 4.9 mmol/L [facility] Chloride 103 97 - 110 mmol/L [facility] CO2 26 22 - 32 mmol/L [facility] Anion gap 9 2 - 15 mmol/L [facility] BUN 18 8 - 25 mg/dL [facility] Creatinine 1.17(H) 0.60 - 1.10 mg/dL [facility] Glucose 140 70 - 199 mg/dL [facility] [...] 2017. Calcium 8.7 8.5 - 10.3 mg/dL [facility] Blood specimen (specimen) 02/13/2019 8:42 PM CDT 02/13/2019 9:12 PM CDT us Premal Ac Thompson MD LAB BLOOD ORDERABLES Fin al Result Performing Organization Address [facility] Co de Phone Number [facility] [address] [place] [address] * POCT glucose (02/13/2019 11:15 AM CDT) Glucose, POC 128 70 - 199 mg/dL [facility] Blood specimen (specimen) 02/13/2019 11:15 AM CDT 02/13/2019 11:15 AM CDT Montse Thompson MD LAB POCT ORDERABLES - DE VICE Final Result Performing Organization Address [facility] Co de Phone Number [facility] [address] [address] * POCT glucose (02/13/2019 10:39 AM CDT) Glucose, POC 163 70 - 199 mg/dL [facility] Blood specimen (specimen) 02/13/2019 10:39 AM CDT 02/13/2019 10:39 AM CDT Montse Thompson MD LAB POCT ORDERABLES - DE VICE Final Result Performing Organization Address [facility] Phone Number LEVAR [address] [address] * Surgical pathology (02/13/2019 10:02 AM CDT) 02/13/2019 10:0 2 AM CDT 02/13/2019 12:14 PM CDT Narrative 02/20/2019 8:35 PM CDT EPIC results best viewed via link to PDF [facility] [place] [address] SURGICAL PATHOLOGY REPORT FINAL Patient Name: ?? ALEAH GERBER Gender: ??F : ??1955 (Age: 63) Address: ??[address] [place] [address] ??[address] Hospital #: ??[id number] Taken:02/13/2019 Received:02/13/2019 Reported: 02/20/2019 Patient Type: [facility] SDS ?? Service: Surgery Location: [place] [address] Physician(s): ??Premal Donna, M.D. Ravi Mulligan, M.D. [...] tube attached to uterine cornua, A9 and T32-pcsym ovary serial sections, A13 and H20-qomxq fallopian tube serial sections, R17-qmeoikw of fallopian tube attached to uterine cornua, S52-oinrnowv exocervix, V84-nlpunnsh endomyometrium, J18-jienrybza exocervix, Y41-rscjhxjva endomyometrium. ??Jar 2. ?? axa/02/13/2019 18:21 Lis Trivedi M.D. By this signature, I attest that the above diagnosis is based upon my personal examination of the slides(and/or other material). The performance characteristics of some immunohistochemical stains, fluorescence in-situ hybridization tests and immunophenotyping by flow cytometry cited in this report (if any) were determined by the Surgical Pathology Department at [facility] as part of an ongoing research quality assurance specialist program and in compliance with federally mandated [...] determined by the Surgical Pathology Department of [facility]. ??It has not been cleared or approved by the U. S. Food and Drug Administration. IMAGES AND SCANNED DOCUMENTS, IF INCLUDED, ONLY VIEWABLE IN PDF VERSION OF REPORT Montse Thompson MD LAB PATHOLOGY ORDERABLES Final Result * Cytology (02/13/2019 8:51 AM CDT) Fluid (Pelvic Washing (Cytology)) 02/13/2019 8:51 [address] [facility] - 02/16/2019 3:34 PM CDT EPIC results best viewed via link to PDF [facility] [place] [address] CYTOPATHOLOGY REPORT FINAL Patient Name: ?? ALEAH GERBER Gender: ??F : ??1955 (Age: 63) Address: ??[address] [place] [address] Hospital #: ??[id number] Taken:02/13/2019 Received:02/13/2019 Reported: 02/16/2019 Patient Type: [facility] SDS ?? Service: Surgery Location: [place] [address] Physician(s): ??David Locke M.D. FINAL DIAGNOSIS A. [...] determined by the Surgical Pathology Department at [facility] as part of an ongoing research quality assurance specialist program and in compliance with federally mandated [...] determined by the Surgical Pathology Department of [facility]. ??It has not been cleared or approved by the U. S. Food and Drug Administration. us Premal Ac Thompson MD LAB CYTOLOGY ORDERABLES Final Result PATHOLOGY [facility] 3rd Floor [place], [place] [phone] * POCT glucose (02/13/2019 6:44 AM CDT) Glucose, POC 115 70 - 199 mg/dL [facility] Blood specimen (specimen) 02/13/2019 6:44 AM CDT 02/13/2019 6:44 AM CDT [facility] Ac Thompson MD LAB POCT ORDERABLES - DE VICE Final Result [facility] [address] [place] [address] documented in this encounter Visit Diagnoses Diagnosis [...] 1 puff, inhalation, 2 times daily (supervisor respiratory), First dose (after last modification) on Sat02/13/19 at 2100, Rinse mouth with water after use. Do not swallow. Given 02/14/2019 8:26 AM CDT 1 puff Given 02/13/2019 9:17 PM CDT 1 puff fluticasone propion-salmeterol (ADVAIR DISKUS) 250-50 mcg/dose diskus inhaler 1 puff 1 puff, inhalation, 2 times daily (supervisor respiratory), First dose (after last modification) on Sat02/14/19 [...] er: Deyanira Boothe RN)08 (Given - Provider: Olamide Coleman) docusate sodium [...] 1 puff, inhalation, 2 times daily (supervisor respiratory), First dose (after last modification) on Sat02/13/19 at 2100, Rinse mouth with water after use. Do not swallow. 2116 (Given - Provider: Jac Mccarty, FIXED INCOME DIRECTOR) 08 (Given - Provider: Olamide Coleman) fluticasone propion-salmeterol (ADVAIR DISKUS) 250-50 mcg/dose diskus inhaler 1 puff 1 puff, inhalation, 2 times daily (supervisor respiratory), First dose (after last modification) on 02/14/19 [...] 02/13/2019 documented in this encounter Care Teams Quality Assurance Advisor Relationship Specialty Start Date End Date Ravi Smith MD PCP - General 11/04/17 09/27/21 AfKianna simpson MD PhD [address] [place] [address] Surgeon Surgical Oncology 11/22/17 Santiago Gilbert MD [address] [place] [address] Customer Support Professional Gastroenterology 11/22/17 Dmitry Sanderson MD [address] [place] [address] Referring Physician Colon and Rectal Surgery 12/03/1805/06 Abbi Ventura MD [address] [place] [address] [address] [place] [address] Medical Oncologist/Cocoa Mill Operator Medical Oncology 12/03/18 Montse Thompson MD [address] [place] [address] [address] [place] [address] Consulting Physician Gynecologic Oncology 12/03/18 Lela Hardy MD PhD [address] [place] [address] [address] [place] [address] Radiation Oncologist Radiation Oncology 12/23/18 Kianna Bunch MD PhD [address] [place] [address] [address] [place] [address] Surgeon Surgical Oncology 12/23/18 09/17/21 documented as of this encounter
--- OUTSIDE RECORDS SUMMARY | 2024-04-24 14:53 | XMS_ITS | Encounter Summary ---
Author Organization [facility] Address [address] [place] [address] Phone Care Team Providers Care Project Technician Name Role Phone Ravi Smith MD Primary Care Provider [phone] Aft, Kianna Machado MD PhD Unavailable [phone] Santiago Gilbert MD Unavailable [phone] Dmitry Sanderson MD Unavailable [phone] Abbi Ventura MD Unavailable Montse Thompson MD Unavailable [phone] Lela Hardy MD PhD Unavailable [phone] Aft, Kianna Machado MD PhD Unavailable [phone] Encounter Details Date Type Department Care Team (Late st Contact Info) Description 02/05/2019 Telephone [facility] Pulmonary [address] [facility] Advanced Medicine 8th [place] [address] [place] [phone] Leroy Cuellar RMA Social History Tobacco Use [...] on file Legal Sex 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 Gender Identity Not on file Sexual [...] on filedocumented in this encounter Care Teams Project Technician Relationship Specialty Start Date End Date Ravi Smith MD PCP - General 11/04/17 09/27/21 Aft, Kianna Machado MD PhD [address] [place] [address] Surgeon Surgical Oncology 11/22/17 Santiago Gilbert MD [address] [place] [address] Actuarial Assistant Gastroenterology 11/22/17 Dmitry Sanderson MD [address] [place] [address] Referring Physician Colon and Rectal Surgery 12/03/1805/06 Abbi Ventura MD [address] [place] [address] [address] [place] [address] Medical Oncologist/Code Clerk Medical Oncology 12/03/18 Montse Thompson MD [address] [place] [address] [address] [place] [address] Consulting Physician Gynecologic Oncology 12/03/18 Lela Hardy MD PhD [address] [place] [address] [address] [place] [address] Radiation Oncologist Radiation Oncology 12/23/18 Aft, Kianna Machado MD PhD [address] [place] [address] [address] [place] [address] Surgeon Surgical Oncology 12/23/18 09/17/21 documented as of this encounter
--- OUTSIDE RECORDS SUMMARY | 2024-04-24 14:53 | XMS_ITS | Encounter Summary ---
Author Organization [facility] Address [address] [place] [address] Phone Care Team Providers Care Leaf Sucker Operator Name Role Phone Hugo Smith MD Primary Care Provider [phone] Aft, Kianna Machado MD PhD Unavailable [phone] Santiago Gilbert MD Unavailable Dmitry Sanderson MD Unavailable [phone] Abbi Ventura MD Unavailable Montse Thompson MD Unavailable [phone] Lela Hardy MD PhD Unavailable [phone] Aft, Kianna Machado MD PhD Unavailable Reason for Referral * Sleep Medicine (Routine) - Closed Specialty Diagnoses / Procedures Referred By Contac t Referred To Contact Diagnoses Hypersomnia, unspecified Procedures Portable/Home Sleep Study Mary Garcia MD [address] [place] [address] Phone: tel: fax: 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 (All Locations) Referral ID Status Reason Start Date Expiration Date V isits Requested Visits Authorized [id number] Closed Specialty Services Required 02/05/2019 08/16/2020 1 1 Encounter Details Date Type Department Care Team (Late st Contact Info) Description 04/27/2019 2:30 PM COLLATING MACHINE OPERATOR Office Visit [facility] Pulmonary [address] [facility] 6th [address] [place] [phone] Mary Garcia MD [address] [place] [address] Hypersomnia, unspecified (Primary Dx); Other [...] on file Legal Sex Female 1:06 AM COLLATING MACHINE OPERATOR Gender Identity Not on file Sexual Orientation Not on file documented as of this encounter Last Filed Vital Signs Vital Sign Reading Time Taken Comments Blood Pressure 145/72 04/27/2019 2:27 PM COLLATING MACHINE OPERATOR Pulse 85 04/27/2019 2:27 PM COLLATING MACHINE OPERATOR Temperature - - Respiratory Rate - - Oxygen Saturation 95% 04/27/2019 2:27 PM COLLATING MACHINE OPERATOR Inhaled Oxygen Concentration - - Weight 108.4 kg (239 lb) 04/27/2019 2:27 PM COLLATING MACHINE OPERATOR Height 175.3 cm (5' 9 ) 04/27/2019 2:27 PM COLLATING MACHINE OPERATOR Body Mass Index 35.29 04/27/2019 2:27 PM COLLATING MACHINE OPERATOR documented in this encounter Patient Instructions * Patient Instructions* Mary Garcia MD - 04/27/2019 2:30 PM COLLATING MACHINE OPERATOR Headspace or CALM sandra ATING MACHINE OPERATOR documented in this encounter Progress Notes [...] and lower extremity strength is 5/5. DATA: Stewart Sleepiness Scale is 6/24. IMPRESSION: Ms. Gerber [...] - 04/30/2019 03:13 PM Mary Garcia M.D. livestock exhibitor TR/mt cc: CRISTOBAL VINCENT MD [address] [facility] [address], [place] [address] HUGO SMITH MD [address] [place] [address] / ATING MACHINE OPERATOR documented in this encounter Plan of Treatment Not on file documented as of this encounter Results * PORTABLE/HOME SLEEP STUDY (05/29/2019 11:00 AM COLLATING MACHINE OPERATOR) Narrative Mary Garcia MD - 05/29/2019 11:00 AM COLLATING MACHINE OPERATOR Mary Garcia MD ? 06/05/2019 ??2:24 PM [...] 04/27/2019 documented in this encounter Care Teams Leaf Sucker Operator Relationship Specialty Start Date End Date Hugo Smith MD PCP - General 11/04/17 09/27/21 Aft, Kianna Machado MD PhD [address] [place] [address] Surgeon Surgical Oncology 11/22/17 Santiago Gilbert MD [address] [place] [address] Sql Database Administrator Gastroenterology 11/22/17 Dmitry Sanderson MD [address] [place] [address] Referring Physician Colon and Rectal Surgery 12/03/1805/06 Abbi Ventura MD [address] [place] [address] [address] [place] [address] Medical Oncologist/Tamale Maker Medical Oncology 12/03/18 Montse Thompson MD [address] [place] [address] [address] [place] [address] Consulting Physician Gynecologic Oncology 12/03/18 Lela Hardy MD PhD [address] [place] [address] [address] [place] [address] Radiation Oncologist Radiation Oncology 12/23/18 Aft, Kianna Machado MD PhD [address] [place] [address] [address] [place] [address] Surgeon Surgical Oncology 12/23/18 09/17/21 documented as of this encounter
--- OUTSIDE RECORDS SUMMARY | 2024-04-24 14:53 | XMS_ITS | Encounter Summary ---
Author Organization [facility] Address [address] [place] [address] Phone Care Team Providers Care Jelly Maker Name Role Phone Ravi Smith MD Primary Care Provider [phone] Aft, Kianna Machado MD PhD Unavailable Santiago Gilbert MD Unavailable [phone] Dmitry Sanderson MD Unavailable [phone] Abbi Ventura MD Unavailable Montse Thompson MD Unavailable Lela Hardy MD PhD Unavailable [phone] Aft, Kianna Machado MD PhD Unavailable [phone] Encounter Details Date Type Department Care Team (Late st Contact Info) Description 04/01/2019 10:00 AM BURLAPPER Clinical Support [facility] Oncology [address] [place] [address] Abbi Ventura MD [address] [place], [place] [id number] Vianey Miller, KAM [address] [place] [address] Malignant neoplasm of descending colon (CMS/HCC) Discharge [...] on file Legal Sex Female 1:06 AM BURLAPPER Gender Identity Not on file Sexual Orientation Not on file documented as of this encounter Discharge Disposition Disposition Code Departure Means Destination Discharge to home or self care documented in this encounter Plan of Treatment Not on file documented as of this encounter Procedures Procedure Name Priority Date/Time Associated Diagnosis Comments DIFFERENTIAL AUTO STAT 04/01/2019 10: 18 AM BURLAPPER Malignant neoplasm of descending colon (CMS/HCC) CBC WITH AUTO DIFFERENTIAL STAT 04/01/2019 10:18 AM BURLAPPER Malignant neoplasm of descending colon (CMS/HCC) MAGNESIUM STAT 04/01/2019 10:18 AM BURLAPPER Malignant neoplasm of descending colon (CMS/HCC) CEA Routine 04/01/2019 10:18 AM BURLAPPER Malignant neoplasm of descending colon (CMS/HCC) COMPREHENSIVE METABOLIC PANEL STAT 04/01/2019 10:18 AM BURLAPPER Malignant neoplasm of descending colon (CMS/HCC) documented in this encounter Results * Differential, auto (04/01/2019 10:18 AM BURLAPPER) Neutrophil abs 5.6 1.7 - 6.5 K/cumm [facility] Imm gran abs 0.0 0.0 - 0.1 K/cumm [facility] Lymphocyte abs 1.0 0.8 - 3.3 K/cumm [facility] Monocyte abs 0.4 0.2 - 0.8 K/cumm [facility] Eosinophil abs 0.3 0.0 - 0.5 K/cumm [facility] Basophil abs 0.1 0.0 - 0.1 K/cumm [facility] Neutrophil pct 75.8 % [facility] Comment: Interpretive Data Percent cell count reference ranges are not reported, since discordance with absolute values may lead to misinterpretation of CBC data. Current Interpretive Data was last revised on 2017. Imm gran pct 0.3 % [facility] Comment: Interpretive Data Percent cell count reference ranges are not reported, since discordance with absolute values may lead to misinterpretation of CBC data. Current Interpretive Data was last revised on 2017. Lymphocyte pct 14.0 % [facility] Comment: Interpretive Data Percent cell count reference ranges are not reported, since discordance with absolute values may lead to misinterpretation of CBC data. Current Interpretive Data was last revised on 2017. Monocyte pct 5.5 % [facility] Comment: Interpretive Data Percent cell count reference ranges are not reported, since discordance with absolute values may lead to misinterpretation of CBC data. Current Interpretive Data was last revised on 2017. Eosinophil pct 3.6 % [facility] Comment: Interpretive Data Percent cell count reference ranges are not reported, since discordance with absolute values may lead to misinterpretation of CBC data. Current Interpretive Data was last revised on 2017. Basophil pct 0.8 % [facility] Comment: Interpretive Data Percent cell count reference ranges are not reported, since discordance with absolute values may lead to misinterpretation of CBC data. Current Interpretive Data was last revised on 2017. Blood specimen (specimen) 04/01/2019 10:18 AM BURLAPPER 04/01/2019 10:18 AM BURLAPPER us Abbi Ventura MD LAB BLOOD ORDERABLES Final Resul t [facility] Department of Laboratories [place], [place] [id number] * (ABNORMAL) CBC with auto differential (04/01/2019 10:18 AM BURLAPPER) WBC 7.3 3.8 - 9.9 K/cumm [facility] Hgb 11.2(L) 11.9 - 15.5 g/dL [facility] Hct 33.6(L) 35.6 - 45.5 % [facility] Plt 156 150 - 400 K/cumm [facility] MPV 9.4 9.1 - 12.[address] [facility] RBC 3.63(L) 3.90 - 5.20 M/cumm [facility] MCV 92.6 81.3 - 96.[address] [facility] MCH 30.9 27.1 - 33.[address] [facility] MCHC 33.3 32.3 - 35.7 g/dL [facility] RDW CV 13.8 11.1 - 14.9 % [facility] RDW SD 46.9 35.7 - 48.[address] [facility] NRBC abs 0.00 0.00 - 0.01 K/cumm [facility] Blood specimen (specimen) 04/01/2019 10:18 AM BURLAPPER 04/01/2019 10:18 AM BURLAPPER Abbi Ventura MD LAB BLOOD ORDERABLES Final Resul t [facility] Department [place] [address] * Comprehensive metabolic panel (04/01/2019 10:18 AM BURLAPPER) Pathologist [facility] Sodium 142 135 - 145 mmol/L [facility] Potassium, pl 4.2 3.3 - 4.9 mmol/L [facility] Chloride 107 97 - 110 mmol/L [facility] CO2 27 22 - 32 mmol/L [facility] Anion gap 8 2 - 15 mmol/L [facility] BUN 24 8 - 25 mg/dL [facility] Creatinine 1.09 0.60 - 1.10 mg/dL [facility] Glucose 164 70 - 199 mg/dL [facility] [...] 2017. Calcium 9.5 8.5 - 10.3 mg/dL [facility] Bilirubin, total 0.2 0.1 - 1.2 mg/dL [facility] Protein, pl 7.1 6.5 - 8.5 g/dL [facility] Albumin 4.2 3.5 - 5.0 g/dL [facility] Alk phos 79 40 - 130 Units/L [facility] ALT 12 7 - 45 Units/L [facility] AST 17 10 - 45 Units/L [facility] Blood specimen (specimen) 04/01/2019 10:18 AM BURLAPPER 04/01/2019 10:18 AM BURLAPPER Abbi Ventura MD LAB BLOOD ORDERABLES Final Resul t Performing Organization Address [facility] de Phone Number [facility] Department [place] [employer] [place] [address] * Magnesium (04/01/2019 10:18 AM BURLAPPER) Magnesium 1.8 1.4 - 2.5 mg/dL [facility] Blood specimen (specimen) 04/01/2019 10:18 AM BURLAPPER 04/01/2019 10:18 AM BURLAPPER Abbi Ventura MD LAB BLOOD ORDERABLES Final Resul t Performing Organization Address [facility] de Phone Number [facility] [place] [address] * CEA (04/01/2019 10:18 AM BURLAPPER) CEA 2.4 <=5.0 ng/mL [facility] Comment: Interpretative Data: Reference Range: Non-Smokers: 0.0 - 5.0 ng/mL Smokers: 0.0 ? 6.5 ng/mL This test was developed and its performance characteristics determined by the [facility] in a manner consistent with CLIA requirements. This test has not been cleared or approved by the U.S. Food and Drug Administration. Current interpretive data was last revised 2018. 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) Malignant neoplasm of descending colon documented in this encounter Orders Appointment Requests Count Last Ordered Date Fi rst Ordered Date ONCBCN LAB APPOINTMENT 1 04/01/2019 documented in this encounter Care Teams Jelly Maker Relationship Specialty Start Date End Date Ravi Smith MD PCP - General 11/04/17 09/27/21 Aft, Kianna Machado MD PhD [address] [place] [address] Surgeon Surgical Oncology 11/22/17 Santiago Gilbert MD [address] [place] [address] Loading Unit Operator Crimping Gastroenterology 11/22/17 Dmitry Sanderson MD [address] [place] [address] Referring Physician Colon and Rectal Surgery 12/03/1805/06 Abbi Ventura MD [address] [place] [address] [address] [place] [address] Medical Oncologist/Gin Feeder Medical Oncology 12/03/18 Montse Thompson MD [address] [facility] [place] [address] Consulting Physician Gynecologic Oncology 12/03/18 Lela Hardy MD PhD [address] [place] [address] [address] [place] [address] Radiation Oncologist Radiation Oncology 12/23/18 Aft, Kianna Machado MD PhD [address] [place] [address] [address] [place] [address] Surgeon Surgical Oncology 12/23/18 09/17/21 documented as of this encounter
--- OUTSIDE RECORDS SUMMARY | 2024-04-24 14:53 | XMS_ITS | Encounter Summary ---
Author Organization [facility] Address [address] [place] [address] Phone Care Team Providers Care Steam Frame Operator Name Role Phone Ravi Smith MD Primary Care Provider [phone] Aft, Kianna Machado MD PhD Unavailable [phone] Santiago Gilbert MD Unavailable [phone] Dmitry Sanderson MD Unavailable [phone] Abbi Ventura MD Unavailable Montse Thompson MD Unavailable [phone] Lela Hardy MD PhD Unavailable [phone] Aft, Kianna Machado MD PhD Unavailable [phone] Encounter Details Date Type Department Care Team (Late st Contact Info) Description 04/07/2019 Telephone [facility] Oncology [address] [place] [phone] Fatemeh Zarate, RN Social History Tobacco Use [...] on file Legal Sex Female 1:06 AM ICU MANAGER Gender Identity Not on file Sexual Orientation Not on file documented as of this encounter Miscellaneous Notes * Telephone Encounter - Fatemeh Zarate RN - 04/07/2019 10:21 AM CST ----- Message from Fatemeh Zarate RN sent at 04/06/2019 10:08 AM ICU MANAGER ----- Can you get colonoscopy report from [facility]? Per patient it was done sometime in the last6 months . Thanks Abbi Ventura 04/06/19 PS requested colonoscopy report. Waiting for fax. DB 04/06/19 Report received. Scanned into chart. Dr. Ventura reviewed. DB MANAGER MANAGER documented in this encounter Plan of Treatment Not on file documented as of this encounter Visit Diagnoses Not on filedocumented in this encounter Care Teams Steam Frame Operator Relationship Specialty Start Date End Date Ravi Smith MD PCP - General 11/04/17 09/27/21 Aft, Kianna Machado MD PhD [address] [place] [address] Surgeon Surgical Oncology 11/22/17 Santiago Gilbert MD [address] [place] [address] Electronic Scale Tester Gastroenterology 11/22/17 Dmitry Sanderson MD [address] [place] [address] Referring Physician Colon and Rectal Surgery 12/03/1805/06 Abbi Ventura MD [address] [facility] [address] [place] [address] Medical Oncologist/Print Room Worker Medical Oncology 12/03/18 Montse Thompson MD [address] [place], [place] [id number] Consulting Physician Gynecologic Oncology 12/03/18 Lela Hardy MD PhD [address] [place] [address] [address] [place], [place] [id number] Radiation Oncologist Radiation Oncology 12/23/18 Aft, Kianna Machado MD PhD [address] [place] [address] [address] [place], [place] [id number] Surgeon Surgical Oncology 12/23/18 09/17/21 documented as of this encounter
--- OUTSIDE RECORDS SUMMARY | 2024-04-24 14:53 | XMS_ITS | Encounter Summary ---
Author Organization [facility] Address [address] [place] [address] Care Team Providers Care Gi Asst Name Role Phone Ravi Smith MD Primary Care Provider [phone] Aft, Kianna Machado MD PhD Unavailable [phone] Santiago Gilbert MD Unavailable [phone] Dmitry Sanderson MD Unavailable [phone] Abbi Ventura MD Unavailable Montse Thompson MD Unavailable [phone] Lela Hardy MD PhD Unavailable [phone] Aft, Kianna Machado MD PhD Unavailable [phone] Encounter Details Date Type Department Care Team (Late st Contact Info) Description 03/18/2019 1:40 PM AIR CARRIER MAINTENANCE INSPECTOR Office Visit [facility] Radiation Oncology at [facility] [address] [place] [address] Nasreen Hagan, CAMPAIGN MARKETING SPECIALIST [address] [facility] [address] [place] [address] Encounter for follow-up examination after completed treatment [...] file Legal Sex Female 1:06 AM AIR CARRIER MAINTENANCE INSPECTOR Gender Identity Not on file Sexual Orientation Not on file documented as of this encounter Last Filed Vital Signs Vital Sign Reading Time Taken Comments Blood Pressure 127/82 03/18/2019 1:52 PM AIR CARRIER MAINTENANCE INSPECTOR Pulse 88 03/18/2019 1:52 PM AIR CARRIER MAINTENANCE INSPECTOR Temperature 37.1 ??C (98.8 ??F) 03/18/2019 1:52 PM CS T Respiratory Rate - - Oxygen Saturation - - Inhaled Oxygen Concentration - - Weight 106.9 kg (235 lb 11.2 oz) 03/18/2019 1:43 PM AIR CARRIER MAINTENANCE INSPECTOR Height - - Body Mass Index 34.79 03/02/2019 4:41 PM CDT documented in this encounter Patient Instructions * Patient Instructions* Nasreen Hagan NP - 03/18/2019 1:40 PM AIR CARRIER MAINTENANCE INSPECTOR There is no clinical evidence of recurrent or metastatic disease on exam today. Continue your breast self exams on a monthly basis. You have the information for [facility] if you feel that you need in the future. Please don't hesitate to call for any referrals or concerns. Please continue to apply VaniCream or Blandford Butter daily to the treated breast. Avoid sun exposure and use sunscreen or protective garments to protect the treated area from sunlight to minimize a skin reaction. I will see you for follow up in 6 months. Follow up with medical and surgical oncology as previously arranged. Please call with any questions or concerns in the meantime. CARRIER MAINTENANCE INSPECTOR documented in this encounter Progress Notes [...] ER-, [place]-, HER2-) - Signed by Lela Hardy MD [...] diarrhea. 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 This [...] User Date and Time NASREEN HAGAN NP [[id number]] 03/18/2019 3:33 PM REVIEW OF SYSTEM Review [...] labs collected 02/13/19 reviewed. Surgical Pathology at [facility] on 02/13/19, accession #[id number]: Uterus, cervix, bilateral tubes and ovaries, total [...] emotional state. I encouraged her to utilize [facility], which she already has the [...] Dr. Lela Hardy. Lela Hardy MD, PhD Reproduction Production Manager Department of Radiation Oncology Cosigned by Lela Hardy MD PhD at 03/30/2019 11:02 AM AIR CARRIER MAINTENANCE INSPECTOR CARRIER MAINTENANCE INSPECTOR CARRIER MAINTENANCE INSPECTOR documented in this encounter Plan of [...] 09/29/2020 added in this encounter Care Teams Gi Asst Relationship Specialty Start Date End Date Ravi Smith MD PCP - General 11/04/17 09/27/21 Aft, Kianna Machado MD PhD [address] [place] [address] Surgeon Surgical Oncology 11/22/17 Santiago Gilbert MD [address] [place] [address] Alternative Dispute Resolution Mediator Gastroenterology 11/22/17 Dmitry Sanderson MD [address] [place] [address] Referring Physician Colon and Rectal Surgery 12/03/1805/06 Abbi Ventura MD [address] [place] [address] [address] [place] [address] Medical Oncologist/Kettle Tender Medical Oncology 12/03/18 Montse Thompson MD [address] [facility] [address] [place] [address] Consulting Physician Gynecologic Oncology 12/03/18 Lela Hardy MD PhD [address] [facility] [address] [place] [address] Radiation Oncologist Radiation Oncology 12/23/18 Aft, Kianna Machado MD PhD [address] [place] [address] Surgeon Surgical Oncology 12/23/18 09/17/21 documented as of this encounter
--- OUTSIDE RECORDS SUMMARY | 2024-04-24 14:53 | XMS_ITS | Encounter Summary ---
Author Organization [facility] Healthcare Address [address] [place] [address] Care Team Providers Care Curam Developer Name Role Phone Ravi Smith MD Primary Care Provider [phone] Aft, Kianna Machado MD PhD Unavailable [phone] Santiago Gilbert MD Unavailable [phone] Dmitry Sanderson MD Unavailable [phone] Abbi Ventura MD Unavailable Montse Thompson MD Unavailable [phone] Lela Hardy MD PhD Unavailable [phone] Aft, Kianna Machado MD PhD Unavailable [phone] Encounter Details Date Type Department Care Team (Latest Contact Info) Description 04/09/2019 6:25 AM RESTAURANT CREW - 04/09/2019 10:00 AM [facility] Hospital Encounter [facility] Operating Room [facility] [address] [place] [address] Aft, Kianna Machado MD PhD [address] [place] [address] Discharge Disposition: Discharge to home or self [...] file Legal Sex Female 1:06 AM RESTAURANT CREW Gender Identity Not on file Sexual Orientation Not on file documented as of this encounter Last Filed Vital Signs Vital Sign Reading Time Taken Comments Blood Pressure 157/84 04/09/2019 9:30 AM RESTAURANT CREW Pulse 78 04/09/2019 9:40 AM RESTAURANT CREW Temperature 36.1 ??C (97 ??F) 04/09/2019 9:15 AM RESTAURANT CREW Respiratory Rate 12 04/09/2019 9:30 AM RESTAURANT CREW Oxygen Saturation 94% 04/09/2019 9:40 AM RESTAURANT CREW Inhaled Oxygen Concentration - - Weight 106.6 kg (235 lb) 03/20/2019 4:50 PM RESTAURANT CREW Height 175.3 cm (5' 9 ) 03/20/2019 4:50 PM RESTAURANT CREW Body Mass Index 34.7 03/20/2019 4:50 PM RESTAURANT CREW documented in this encounter Discharge Diagnoses Diagnosis [...] (TIA), 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 AURANT CREW documented in this encounter Medications at Time [...] Bunch MD PhD at 04/09/2019 8:19 AM RESTAURANT CREW AURANT CREW AURANT CREW Source Note - Ashlyn Fletcher MD - 03/26/2019 6:23 PM RESTAURANT CREW Images from the original note were not [...] due to asthma Comments: Established w a ostomy nurse this past year Hepatic / Heme + [...] for VIOLETTE. Patient has upcoming appointment w/ ostomy nurse in April w/ plans to discuss a [...] typically on the day after surgery. Sent Kanmu Message via [employer] in surgeon's office. Please call the CPAP attending ([phone]) to revisit bleeding risk assessment, with any [...] by telephone and in writing sent via [employer] mail. Patient verbalized understanding of preoperative plan. [...] Breast Needle Localization partial mastectomy (L), Biopsy Cameron Lymph Node With Lymphoscintigraphy (L), Insertion Port [...] There are no prior chest radiographs at [facility] for comparison. A right internal jugular [...] Medication protocol when under care of a MASTER MOTORCYCLE TECHNICIAN Planned anesthesia: MAC Induction: Induction: intravenous. Postoperative Plan: Patient's planned disposition post procedure is Outpatient. Informed Consent: Discussed plan with MASTER MOTORCYCLE TECHNICIAN. Anesthesia plan and risks discussed with patient. Consent and Attending signature: I and/or my designee have discussed the anesthesia plan, benefits, possible alternatives, parental presence at time of induction (if indicated), and clinically relevant risks that may include dental injury, unintentional awareness, and/or other complications. The patient and/or parent/legal guardian understand, and agree to proceed. All questions answered. AURANT CREW AURANT CREW AURANT CREW documented in this encounter Miscellaneous Notes * Perioperative Nursing Note - Deana Soria RN - 04/09/2019 8:53 AM CST Port a cath removed by Dr. Bunch. Intact in one piece. AURANT CREW * Op Note - Kianna Bunch MD [...] status, unspecified laterality, unspecified site of breast (CMS/[facility]) [C50.919] POSTOPERATIVE DIAGNOSIS: Post-op Diagnosis * Malignant [...] for all remaining portions of the case. AURANT CREW * Brief Op Note - Thaddeus, Skylar Arenas MD - 04/09/2019 8:43 AM CST Operative Progress Note Surgical Team: Surgeon(s) and Role: * Kianna Bunch MD PhD - Primary * Skylar Travis MD - Resident - Assisting Anesthesiologist: Ashlyn Fletcher MD MASTER MOTORCYCLE TECHNICIAN: Willis Bowling CRNA Clinical Education Coordinator: Salvador Cuello RN Scrub: ST Сергей Clinical Education Coordinator Second: Deana Soria RN DATE OF SURGERY [...] Bunch MD PhD at 04/09/2019 2:29 PM RESTAURANT CREW AURANT CREW AURANT CREW * Pre-Procedure Instructions - Lavonne Barlow NP - 03/26/2019 6:30 PM RESTAURANT CREW [facility] Preoperative Assessment [facility] Planning CPAP Clinic Location: [facility] The night before your surgery: [...] bowel prep or special diet before surgery AURANT CREW * Perioperative Nursing Note - Kandice Chairez RN - 03/20/2019 5:32 PM RESTAURANT CREW APPLIES SKIN CARE TO LEFT BREAST TISSUE R/T HEALING RADIATION JONES. AURANT CREW * Pre-Procedure Instructions - Kandice Chairez RN - 03/20/2019 5:01 PM RESTAURANT CREW Center for Preoperative Assessment and Planning Perioperative Nursing Note CPAP Clinic at [facility]) Date: 03/20/19 Vitals: 03/20/19 1650 [...] Other - see comments [facility] [id number] Powerport Clearvue Airguard 8fr 1 Lumen Lightweight Intermediate Latex Free - [id number] - Implanted (Right) Chest Wall Inventory item: [employer] [facility] [id number] Powerport Clearvue Airguard 8fr 1 Lumen Lightweight Intermediate Latex Free Model/Cat number: [id number] Hospital Medicine Director: [employer] [facility] Lot number: [id number] Size: 8F Device identifier: [id number] Device identifier type: GS1 As of 01/14/2018 [...] NOTORIZED AT HOSPITAL AND SCANNED INTO SYSTEM. AURANT CREW * Pre-Procedure Instructions - Kandice Chairez RN - 03/20/2019 4:57 PM RESTAURANT CREW ?? Map for surgery location given to [...] 2 days of your surgery, please call [phone] and ask for your surgeon's office, __JULIO C . AURANT CREW documented in this encounter Plan of Treatment Not on file documented as of this encounter Procedures Procedure Name Priority Date/Time Associated Diagnosis Comments REMOVAL PORT A CATH 04/09/2019 8:24 AM RESTAURANT CREW Malignant neoplasm of female breast, unspecified estrogen receptor status, unspecified laterality, unspecified site of breast (CMS/HCC) Case Notes 03/31: moved case from 04/07 to 04/09 per Deana phillips) POCT GLUCOSE DEVICE Routine 04/09/2019 7:01 AM RESTAURANT CREW documented in this encounter Results * POCT glucose (04/09/2019 7:01 AM RESTAURANT CREW) Glucose, POC 129 70 - 199 mg/dL LEVAR MICHELLE Blood specimen (specimen) 04/09/2019 7:01 AM RESTAURANT CREW 04/09/2019 7:01 AM RESTAURANT CREW us Kianna Bunch MD PhD LAB POCT ORDERABLES - ROSEMARY CE Final Result [facility] Department [place] [address] documented in this encounter Visit Diagnoses Not on filedocumented in this encounter Administered Medications Inactive Administered Medications - up to 3 most recent administrations Medication Order MAR Action Action Date Dose Rate Site Lactated Ringer's (LR) infusion 30 mL/hr, intravenous, Continuous, Starting on Bonnie 04/09/19 at 0715, Pre-Op New Bag 04/09/2019 7:00 AM RESTAURANT CREW 50 mL/h r documented in this encounter [...] Recently Administered Medications Times are shown in RESTAURANT CREW. Continuous Medication Order 04/07/2019 04/08/2019 04/09/2019 Lactated [...] 04/09/2019 documented in this encounter Care Teams Curam Developer Relationship Specialty Start Date End Date Ravi Smith MD PCP - General 11/04/17 09/27/21 Aft, Kianna Machado MD PhD [address] [place] [address] Surgeon Surgical Oncology 11/22/17 Santiago Gilbert MD [address] [place] [address] Patient Care Manager Gastroenterology 11/22/17 Dmitry Sanderson MD [address] [place] [address] Referring Physician Colon and Rectal Surgery 12/03/1805/06 Abbi Ventura MD [address] [place] [address] [address] [place] [address] Medical Oncologist/Manager Medical Affairs Medical Oncology 12/03/18 Montse Thompson MD [address] [place], [place] [address] Consulting Physician Gynecologic Oncology 12/03/18 Lela Hardy MD PhD [address] [place] [address] [address] [place] [address] Radiation Oncologist Radiation Oncology 12/23/18 Aft, Kianna Machado MD PhD [address] [place] [address] [address] [place], [place] [id number] Surgeon Surgical Oncology 12/23/18 09/17/21 documented as of this encounter
--- OUTSIDE RECORDS SUMMARY | 2024-04-24 14:53 | XMS_ITS | Encounter Summary ---
Author Organization [facility] Address [address] [place] [address] Phone Care Team Providers Care Tree Wrapper Name Role Phone Ravi Smith MD Primary Care Provider [phone] Aft, Kianna Machado MD PhD Unavailable [phone] Santiago Gilbert MD Unavailable [phone] Dmitry Sanderson MD Unavailable [phone] Abbi Ventura MD Unavailable Montse Thompson MD Unavailable Lela Hardy MD PhD Unavailable [phone] Aft, Kianna Machado MD PhD Unavailable [phone] Reason for Visit * Sleep Medicine (Routine) - Closed Specialty Diagnoses / Procedures Referred By Contac t Referred To Contact Diagnoses Hypersomnia, unspecified Procedures Portable/Home Sleep Study Mary Garcia MD [address] [place] [address] Phone: tel: fax: [facility] (All Locations) Referral ID Status Reason Start Date Expiration Date Visits Re quested Visits Authorized [id number] Closed 04/27/2019 11/05/2020 1 1 Encounter Details Date Type Department Care Team (Latest Contact Info) Description 05/29/2019 11:00 AM MARKETING TECHNOLOGIST Procedure visit [facility] Neuro Sleep [address] 6th [address] [place] [address] Obstructive sleep apnea Social History [...] file Legal Sex Female 1:06 AM MARKETING TECHNOLOGIST Gender Identity Not on file Sexual Orientation [...] I will contact the Sleep Center at [phone]. If I fail to contact or return the device, I understand I will be charged for the cost in full. By signing this form, I have read and understand the agreement: Patient Signature: Witness Signature: Date: 05/29/2019 ETING TECHNOLOGIST * Alexandre Lynch RPSGT - 05/29/2019 11:00 [...] report. This study was performed using a [employer] Night One portable monitoring unit, serial number [id number], a type 3 portable monitoring device. Variables [...] in this written report. Mary Garcia MD boring mill operator for metal Diplomate in Sleep Medicine, [place] [employer] ETING TECHNOLOGIST documented in this encounter Plan of Treatment Not on file documented as of this encounter Procedures Procedure Name Priority Date/Time Associated Diagnosis Comments PORTABLE/HOME SLEEP STUDY Routine 05/29/2019 11:00 AM MARKETING TECHNOLOGIST Obstructive sleep apnea documented in this encounter Results * PORTABLE/HOME SLEEP STUDY (05/29/2019 11:00 AM MARKETING TECHNOLOGIST) Narrative Mary Garcia MD - 05/29/2019 11:00 AM MARKETING TECHNOLOGIST Mary Garcia MD ? 06/05/2019 ??2:24 PM Portable/Home Sleep Study Date/Time: 05/29/2019 10:00 PM Performed by: Mary Garcia MD Authorized by: Mary Garcia MD us Mary Garcia MD SLEEP CENTER ORDERABLES Bethanie l Result documented in this encounter Visit Diagnoses Diagnosis Obstructive sleep apnea Obstructive sleep apnea (adult) (pediatric) documented in this encounter Care Teams Tree Wrapper Relationship Specialty Start Date End Date Ravi Smith MD PCP - General 11/04/17 09/27/21 Aft, Kianna Machado MD PhD [address] [place] [address] Surgeon Surgical Oncology 11/22/17 Santiago Gilbert MD [address] [place] [address] Continuous Crusher Operator Gastroenterology 11/22/17 Dmitry Sanderson MD [address] [place] [address] Referring Physician Colon and Rectal Surgery 12/03/1805/06 Abbi Ventura MD [address] [place] [address] Medical Oncologist/Satellite Specialist Medical Oncology 12/03/18 Montse Thompson MD [address] [place] [address] Consulting Physician Gynecologic Oncology 12/03/18 Lela Hardy MD PhD [address] [place] [address] Radiation Oncologist Radiation Oncology 12/23/18 Aft, Kianna Machado MD PhD [address] [place] [address] Surgeon Surgical Oncology 12/23/18 09/17/21 documented as of this encounter
--- OUTSIDE RECORDS SUMMARY | 2024-04-24 14:53 | XMS_ITS | Encounter Summary ---
Author Organization [facility] Address [address] [place] [address] Phone Care Team Providers Care Compressor Mechanic Bus Name Role Phone Ravi Smith MD Primary Care Provider [phone] Aft, Kianna Machado MD PhD Unavailable [phone] Santiago Gilbert MD Unavailable [phone] Dmitry Sanderson MD Unavailable [phone] Abbi Ventura MD Unavailable Montse Thompson MD Unavailable [phone] Lela Hardy MD PhD Unavailable [phone] Aft, Kianna Machado MD PhD Unavailable [phone] Reason for Visit * Reason Onset Date Comments Anticoagulation 02/09/2019 Encounter Details Date Type Department Care Team (Late st Contact Info) Description 02/09/2019 Telephone [facility] Obstetrics and Gynecology [address] [facility] 13th [place] [address] [place] [address] Rika Colby Social History Tobacco [...] on file Legal Sex Female 1:06 AM AUDIO VISUAL ENGINEER Gender Identity Not on file Sexual [...] on filedocumented in this encounter Care Teams Compressor Mechanic Bus Relationship Specialty Start Date End Date Ravi Smith MD PCP - General 11/04/17 09/27/21 Aft, Kianna Machado MD PhD [address] [place] [address] Surgeon Surgical Oncology 11/22/17 Santiago Gilbert MD [address] [place] [address] Rocket Engine Tester Gastroenterology 11/22/17 Dmitry Sanderson MD [address] [place] [address] Referring Physician Colon and Rectal Surgery 12/03/1805/06 Abbi Ventura MD [address] [place] [address] [address] [place] [address] Medical Oncologist/Magician Helper Medical Oncology 12/03/18 Montse Thompson MD [address] [facility] [address] [address] [place], [place] [address] Consulting Physician Gynecologic Oncology 12/03/18 Lela Hardy MD PhD [address] [place], [place] [address] Radiation Oncologist Radiation Oncology 12/23/18 Aft, Kianna Machado MD PhD [address] [place], [place] [address] Surgeon Surgical Oncology 12/23/18 09/17/21 documented as of this encounter
--- OUTSIDE RECORDS SUMMARY | 2024-04-24 14:54 | XMS_ITS | Encounter Summary ---
Author Organization [facility] Address [address] [place] [address] Phone Care Team Providers Care Construction Representative Name Role Phone Ravi Smith MD Primary Care Provider [phone] Aft, Kianna Machado MD PhD Unavailable [phone] Santiago Gilbert MD Unavailable Dmitry Sanderson MD Unavailable [phone] Abbi Ventura MD Unavailable Montse Thompson MD Unavailable [phone] Lela Hardy MD PhD Unavailable [phone] Aft, Kianna Machado MD PhD Unavailable [phone] Reason for Referral * Pulmonology (Routine) - Closed Specialty Diagnoses / Procedures Referred By Contac t Referred To Contact Diagnoses Chronic obstructive pulmonary disease, unspecified COPD type (HCC) Procedures Pulmonary Function Test -[facility] Adult PFT Lab- CAM-8D; Spirometry with Bronchodilator, Spirometry, Oxygen Assessment Titration, DLCO, Lung Volumes, ABG; Pleth with Airway Resistance; Room Air ABG; Spirometry Cristobal Dong MD Phone: tel: fax: [facility] (All Locations) Referral ID Status Reason Start Date Expiration Date Visits Re quested Visits Authorized [id number] Closed 10/07/2018 02/24/2019 99 99 Reason for Visit * Pulmonology (Routine) - Closed Specialty Diagnoses / Procedures Referred By Contac t Referred To Contact Diagnoses Chronic obstructive pulmonary disease, unspecified COPD type ([facility]) Procedures Pulmonary Function Test -[facility] Adult PFT Lab- [facility]-8D; Spirometry with Bronchodilator, Spirometry, Oxygen Assessment Titration, DLCO, Lung Volumes, ABG; Pleth with Airway Resistance; Room Air ABG; Spirometry Cristobal Dong MD Phone: tel: fax: [facility] (All Locations) Referral ID Status Reason Start Date Expiration Date Visits Re quested Visits Authorized [id number] Closed 10/07/2018 02/24/2019 99 99 Encounter Details Date Type Department Care Team (Latest Contact Info) Description 02/05/2019 10:00 AM CDT - 02/05/2019 11:59 PM CDT Hospital Encounter [facility] Pulmonary [address] [place] [address] Chronic obstructive pulmonary disease, unspecified COPD type [...] on file Legal Sex Female 1:06 AM PATENT CLERK Gender Identity Not on file Sexual [...] 77 0 - 12 % [facility] NKJ69-93% PRED 2.47 0 - 12 L/sec [facility] CGK94-21% PRE 1.95 0 - 12 L/sec [facility] NZJ31-43% %PRE PRED 79 0 - 300 % [facility] IAN54-79% POST 1.93 0 - 12 L/sec [facility] CMX68-78% %POST PRED 78 0 - 300 % [facility] OTJ29-39% %CHNG -1 0 - 300 % [facility] [...] PEF %CHNG 8 0 - 300 % [facility] QSP915% %CHNG -7 % [facility] PIF PRE 5.48 0 - 18 L/sec [facility] PIF POST 4.49 0 - 18 L/sec [facility] PIF %CHNG -18 0 - 300 % [facility] FEV6 PRE 2.94 0 - 12 Liters [facility] FEV6 POST 2.91 0 - [address] [facility] FEV6 % CHG -1 0 - 300 % [facility] FEV1/FEV6 PRE 79 0 - 12 % [facility] FEV1/FEV6 POST 79 0 - 12 % [facility] VC PRED 3.54 0.05 - 9.[address] [facility] VC PRE 3.05 0.05 - 9.99 Liters [facility] VC %PRE PRED 86 0 - 300 % [facility] TLC PRED 5.79 0.05 - 11.[address] [facility] TLC PRE 5.01 0.05 - 11.99 Liters [facility] TLC %PRE PRED 87 0 - 300 % [facility] RV PRED 2.25 0.05 - 9.99 Liters [facility] RV PRE 1.96 0.05 - 9.99 Liters [facility] RV %PRE PRED 87 0 - 300 % [facility] RV/TLC PRED 40 0 - 300 % [facility] RV/TLC PRE 39 0 - 300 % [facility] FRC N2 PRED 2.81 0.05 - 9.99 Liters [facility] FRC PL PRED 3.31 0.05 - 9.99 Liters [facility] FRC PL PRE 2.72 0.05 - 9.99 Liters [facility] FRC PL %PRE PRED 82 0 - 300 % [facility] ERV PRED 1.22 0.05 - 9.99 Liters [facility] ERV PRE 0.75 0.05 - 9.99 Liters [facility] ERV %PRE PRED 62 0 - 300 % [facility] IC PRE 2.29 0.05 - 9.[address] [facility] DLCO PRED 27.6 0.05 - 99.99 mL/mmHg/min [facility] DLCO PRE 14.2 mL/mmHg/min [facility] DLCO %PRE PRED 51 0 - 300 % [facility] DL ADJ PRED 27.6 1 - 2 mL/mmHg/min [facility] DL ADJ PRE 15.3 1 - 2 mL/mmHg/min [facility] DL ADJ %PRE PRED 55 0 - 300 % [facility] DLCO/VA PRED 5.05 mL/mHg/min/ L [facility] DLCO/VA PRE 3.60 mL/mHg/min/ L [facility] DLCO/VA %PRE PRED 71 % [facility] DL/VA ADJ PRED 3.75 mL/mHg/min/ L [facility] DL/VA ADJ %PRE PRED 104 % [facility] VA PRE 3.94 Liters [facility] RAW PRED 1.14 cmH2O/L/sec [facility] RAW PRE 2.26 cmH2O/L/sec [facility] RAW %PRE PRED 199 % [facility] GAW PRED 0.794 L/sec/cmH2O [facility] GAW PRE 0.442 L/sec/cmH2O [facility] GAW %PRE PRED 56 % [facility] SRAW PRED 3.76 cmH2O/L/s/L [facility] SRAW PRE 6.76 cmH2O/L/s/L [facility] SRAW %PRE PRED 180 % [facility] SGAW PRED 0.262 L/s/cmH2O/L [facility] SGAW PRE 0.148 L/s/cmH2O/L [facility] SGAW %PRE PRED 57 % [facility] pH POC 7.43 [facility] pCO2 POC 37.0 mmHg [facility] PO2 POC 84.0 mmHg [facility] HCO3(c) POC 24.6 meq/L [facility] BE(B) POC 0.4 [facility] O2Hb POC 95.5 % [facility] COHb POC 1.2 % [facility] A-aDO2 POC 19.0 mmHg [facility] Anatomical Region Laterality Modality PFT 02/05/2019 10:1 3 AM CDT Narrative 02/06/2019 1:09 PM CDT [facility] Division of Pulmonary & Critical Care Medicine [address] [place] [address]; [place] [address]; [place], [place] [address]; [phone] Pulmonary Function Laboratory Pulmonary Stress Test Simple/Oxygen Assessment Patient: Aleah Gerber Date: 02/05/2019 Physician: Iker Ht: 69 in ?? Wt: 234 lbs Room: Op Meat Stock Clerk: Mary : 1955 Diagnosis: COPD Time(min) Distance [...] (HCC) documented in this encounter Care Teams Construction Representative Relationship Specialty Start Date End Date Ravi Smith MD PCP - General 11/04/17 09/27/21 AftKianna MD PhD [address] [place] [address] Surgeon Surgical Oncology 11/22/17 Santiago Gilbert MD [address] [place] [address] Filling Carrier Gastroenterology 11/22/17 Dmitry Sanderson MD [address] [place] [address] Referring Physician Colon and Rectal Surgery 12/03/1805/06 Abbi Ventura MD [facility] [address] [place] [address] Medical Oncologist/Public Works Technician Medical Oncology 12/03/18 Montse Thompson MD [address] [place] [address] Consulting Physician Gynecologic Oncology 12/03/18 Lela Hardy MD PhD [address] [place] [address] Radiation Oncologist Radiation Oncology 12/23/18 Kianna Bunch MD PhD [address] [place] [address] Surgeon Surgical Oncology 12/23/18 09/17/21 documented as of this encounter
--- OUTSIDE RECORDS SUMMARY | 2024-04-24 14:54 | XMS_ITS | Encounter Summary ---
Author Organization [facility] Address [address] [place] [address] Phone Care Team Providers Care Hearing Aid Fitter Name Role Phone Ravi Smith MD Primary Care Provider [phone] Aft, Kianna Machado MD PhD Unavailable [phone] Santiago Gilbert MD Unavailable [phone] Dmitry Sanderson MD Unavailable [phone] Abbi Ventura MD Unavailable Montse Thompson MD Unavailable [phone] Lela Hardy MD PhD Unavailable Aft, Kianna Machado MD PhD Unavailable [phone] Reason for Visit * Reason Comments [place] Encounter Details Date Type Department Care Team (Latest Contact Info) Description 02/04/2019 3:00 PM CDT Clinical Support [facility] [address] [place] [address] Malignant neoplasm of descending colon (CMS/HCC) Social [...] file Legal Sex Female 1:06 AM 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 Gender Identity Not on file Sexual [...] 02/04/2019 documented in this encounter Care Teams Hearing Aid Fitter Relationship Specialty Start Date End Date Ravi Smith MD PCP - General 11/04/17 09/27/21 Aft, Kianna Machado MD PhD [address] [place] [address] Surgeon Surgical Oncology 11/22/17 Santiago Gilbert MD [address] [place] [address] Corporate Director Of Human Resources Gastroenterology 11/22/17 Dmitry Sanderson MD [address] [place] [address] Referring Physician Colon and Rectal Surgery 12/03/1805/06 Abbi Ventura MD [address] [facility] [address] [place] [address] Medical Oncologist/Cash Reconciliation Specialist Medical Oncology 12/03/18 Montse Thompson MD [address] [facility] [address] [place] [address] Consulting Physician Gynecologic Oncology 12/03/18 Lela Hardy MD PhD [address] [facility] [address] [place] [address] Radiation Oncologist Radiation Oncology 12/23/18 Aft, Kianna Machado MD PhD [address] [facility] [address] [place] [address] Surgeon Surgical Oncology 12/23/18 09/17/21 documented as of this encounter
--- OUTSIDE RECORDS SUMMARY | 2024-04-24 14:54 | XMS_ITS | Encounter Summary ---
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 Gender Identity Not on file Sexual [...] PM CDT) Course Name C1 L BRS [place] 2018 ARIA Course Plan Date 12/26/2018 4:45 [...] filedocumented in this encounter Care Teams Snack Stewardess Relationship Specialty Start Date End Date Ravi Smith MD PCP - General 11/04/17 09/27/21 Aft, Kianna Machado MD PhD [address] [place] [address] Surgeon Surgical Oncology 11/22/17 Santiago Gilbert MD [address] [place] [address] Supervisor Mattress And Boxsprings Gastroenterology 11/22/17 Dmitry Sanderson MD [address] [place] [address] Referring Physician Colon and Rectal Surgery 12/03/1805/06 Abbi Ventura MD [address] [facility] [address] [place], [place] [id number] Medical Oncologist/Special Population Paraprofessional Medical Oncology 12/03/18 Montse Thompson MD [address] [facility] [address] [place], [place] [id number] Consulting Physician Gynecologic Oncology 12/03/18 Lela Hardy MD PhD [address] [place] [address] [address] [place], [place] [address] Radiation Oncologist Radiation Oncology 12/23/18 Aft, Kianna Machado MD PhD [address] [place] [address] [address] [place], [place] [id number] Surgeon Surgical Oncology 12/23/18 09/17/21 documented as of this encounter
--- OUTSIDE RECORDS SUMMARY | 2024-04-24 14:54 | XMS_ITS | Encounter Summary ---
Author Organization [facility] Healthcare Address [address] [place] [address] Care Team Providers Care Learning Officer Name Role Phone Ravi Smith MD Primary Care Provider [phone] Aft, Kianna Machado MD PhD Unavailable [phone] Santiago Gilbert MD Unavailable [phone] Dmitry Sanderson MD Unavailable [phone] Abbi Ventura MD Unavailable Montse Thompson MD Unavailable [phone] Lela Hardy MD PhD Unavailable [phone] Aft, Kianna Machado MD PhD Unavailable [phone] Encounter Details Date Type Department Care Team (Late st Contact Info) Description 01/27/2019 1:00 PM CDT Treatment [facility] Radiation Oncology at [facility] [address] [place] [address] Social History Tobacco Use Types Packs/Day Years [...] on file 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 Gender Identity Not on file Sexual Orientation Not on file documented as of this encounter Plan of Treatment Not on file documented as of this encounter Visit Diagnoses Not on filedocumented in this encounter Care Teams Learning Officer Relationship Specialty Start Date End Date Ravi Smith MD PCP - General 11/04/17 09/27/21 AfKianna simpson MD PhD [address] [place] [address] Surgeon Surgical Oncology 11/22/17 Santiago Gilbert MD [address] [place] [address] Drum Drier Operator Gastroenterology 11/22/17 Dmitry Sanderson MD [address] [place] [address] Referring Physician Colon and Rectal Surgery 12/03/1805/06 Abbi Ventura MD [address] [place] [address] [address] [place] [address] Medical Oncologist/Fur Finisher Medical Oncology 12/03/18 Montse Thompson MD [address] [facility] [address] [place], [place] [id number] Consulting Physician Gynecologic Oncology 12/03/18 Lela Hardy MD PhD [address] [place] [address] [address] [place] [address] Radiation Oncologist Radiation Oncology 12/23/18 Kianna Bunch MD PhD [address] [facility] [address] [place] [address] Surgeon Surgical Oncology 12/23/18 09/17/21 documented as of this encounter
--- OUTSIDE RECORDS SUMMARY | 2024-04-24 14:54 | XMS_ITS | Encounter Summary ---
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 Gender Identity Not on file [...] PM CDT) Course Name C1 L BRS [place] 2018 ARIA Course Plan Date 12/26/2018 4:45 [...] on filedocumented in this encounter Care Teams Gourmet Coffee Attendant Relationship Specialty Start Date End Date Ravi Smith MD PCP - General 11/04/17 09/27/21 Aft, Kianna Machado MD PhD [address] [place] [address] Surgeon Surgical Oncology 11/22/17 Santiago Gilbert MD [address] [place] [address] Assembling Machine Operator Gastroenterology 11/22/17 Dmitry Sanderson MD [address] [place] [address] Referring Physician Colon and Rectal Surgery 12/03/1805/06 Abbi Ventura MD [address] [facility] [address] [place], [place] [id number] Medical Oncologist/Rn Bone Marrow Transplant Medical Oncology 12/03/18 Montse Thompson MD [address] [facility] [address] [place], [place] [address] Consulting Physician Gynecologic Oncology 12/03/18 Lela Hardy MD PhD [address] [place] [address] [address] [place], [place] [id number] Radiation Oncologist Radiation Oncology 12/23/18 Aft, Kianna Machado MD PhD [address] [place] [address] [address] [place], [place] [id number] Surgeon Surgical Oncology 12/23/18 09/17/21 documented as of this encounter
--- OUTSIDE RECORDS SUMMARY | 2024-04-24 14:54 | XMS_ITS | Encounter Summary ---
Author Organization [facility] Address [address] [place] [address] Phone Care Team Providers Care Svp Operations Name Role Phone Ravi Smith MD Primary Care Provider [phone] Aft, Kianna Machado MD PhD Unavailable [phone] Santiago Gilbert MD Unavailable [phone] Dmitry Sanderson MD Unavailable [phone] Abbi Ventura MD Unavailable Montse Thompson MD Unavailable [phone] Lela Hardy MD PhD Unavailable Aft, Kianna Machado MD PhD Unavailable [phone] Encounter Details Date Type Department Care Team (Late st Contact Info) Description 02/04/2019 Orders Only [facility] Oncology [address] [place] [address] Abbi Ventura MD 10 [facility] [address] [place] [address] Malignant neoplasm of descending colon (CMS/HCC) (Primary [...] file 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 Gender Identity Not on file Sexual [...] 02/04/2019 documented in this encounter Care Teams Svp Operations Relationship Specialty Start Date End Date Ravi Smith MD PCP - General 11/04/17 09/27/21 Aft, Kianna Machado MD PhD [address] [place] [address] Surgeon Surgical Oncology 11/22/17 Santiago Gilbert MD [address] [place] [address] Assistant Maintenance Manager Gastroenterology 11/22/17 Dmitry Sanderson MD [address] [place] [address] Referring Physician Colon and Rectal Surgery 12/03/1805/06 Abbi Ventura MD [address] [place], [place] [address] Medical Oncologist/Stone Crusher Operator Medical Oncology 12/03/18 Montse Thompson MD [address] [place] [address] Consulting Physician Gynecologic Oncology 12/03/18 Lela Hardy MD PhD [address] [facility] [address] [place] [address] Radiation Oncologist Radiation Oncology 12/23/18 Aft, Kianna Machado MD PhD [address] [facility] [address] [place] [address] Surgeon Surgical Oncology 12/23/18 09/17/21 documented as of this encounter
--- OUTSIDE RECORDS SUMMARY | 2024-04-24 14:54 | XMS_ITS | Encounter Summary ---
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 Gender Identity Not on file Sexual [...] PM CDT) Course Name C1 L BRS [place] 2018 ARIA Course Plan Date 12/26/2018 4:45 [...] on filedocumented in this encounter Care Teams Engagement Specialist Relationship Specialty Start Date End Date Ravi Smith MD PCP - General 11/04/17 09/27/21 Aft, Kianna Machado MD PhD [address] [place] [address] Surgeon Surgical Oncology 11/22/17 Santiago Gilbert MD [address] [place] [address] Train Controller Gastroenterology 11/22/17 Dmitry Sanderson MD [address] [place] [address] Referring Physician Colon and Rectal Surgery 12/03/1805/06 Abbi Ventura MD [address] [facility] [address] [place], [place] [address] Medical Oncologist/Newswriter Medical Oncology 12/03/18 Montse Thompson MD [address] [facility] [address] [place], [place] [address] Consulting Physician Gynecologic Oncology 12/03/18 Lela Hardy MD PhD [address] [place] [address] [address] [place], [place] [address] Radiation Oncologist Radiation Oncology 12/23/18 Aft, Kianna Machado MD PhD [address] [place] [address] [address] [place], [place] [id number] Surgeon Surgical Oncology 12/23/18 09/17/21 documented as of this encounter
--- OUTSIDE RECORDS SUMMARY | 2024-04-24 14:54 | XMS_ITS | Encounter Summary ---
Author Organization [facility] Healthcare Address [address] [place] [address] Care Team Providers Care Energy Systems Laboratory Director Name Role Phone Ravi Smith MD Primary Care Provider [phone] Aft, Kianna Machado MD PhD Unavailable [phone] Santiago Gilbert MD Unavailable [phone] Dmitry Sanderson MD Unavailable [phone] Abbi Ventura MD Unavailable Montse Thompson MD Unavailable [phone] Lela Hardy MD PhD Unavailable [phone] Aft, Kianna Machado MD PhD Unavailable [phone] Encounter Details Date Type Department Care Team [...] on file 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 Gender Identity Not on file Sexual [...] PM CDT) Course Name C1 L BRS [place] 2018 ARIA Course Plan Date 12/26/2018 4:45 [...] on filedocumented in this encounter Care Teams Energy Systems Laboratory Director Relationship Specialty Start Date End Date Ravi Smith MD PCP - General 11/04/17 09/27/21 Aft, Kianna Machado MD PhD [address] [place] [address] Surgeon Surgical Oncology 11/22/17 Santiago Gilbert MD [address] [place] [address] Grader Tender Gastroenterology 11/22/17 Dmitry Sanderson MD [address] [place] [address] Referring Physician Colon and Rectal Surgery 12/03/1805/06 Abbi Ventura MD [address] [place] [address] [address] [place], [place] [id number] Medical Oncologist/Photographer Apprentice Medical Oncology 12/03/18 Montse Thompson MD [address] [facility] [address] [place], [place] [address] Consulting Physician Gynecologic Oncology 12/03/18 Lela Hardy MD PhD [address] [place] [address] [address] [place], [place] [address] Radiation Oncologist Radiation Oncology 12/23/18 Aft, Kianna Machado MD PhD [address] [place] [address] [address] [place], [place] [address] Surgeon Surgical Oncology 12/23/18 09/17/21 documented as of this encounter
--- OUTSIDE RECORDS SUMMARY | 2024-04-24 14:54 | XMS_ITS | Encounter Summary ---
Author Organization [facility] Healthcare Address [address] [place] [address] Care Team Providers Care Coil Repair Technician Name Role Phone Ravi Smith MD Primary Care Provider [phone] Aft, Kianna Machado MD PhD Unavailable [phone] Santiago Gilbert MD Unavailable [phone] Dmitry Sanderson MD Unavailable [phone] Abbi Ventura MD Unavailable Montse Thompson MD Unavailable [phone] Lela Hardy MD PhD Unavailable Aft, Kianna Machado MD PhD Unavailable Reason for Visit * Reason Comments OTV Encounter Details Date Type Department Care Team (Late st Contact Info) Description 01/28/2019 OTV [facility] Radiation Oncology at [facility] [address] [place] [address] Lela Hardy MD PhD [address] [facility] [address] [place] [address] Malignant neoplasm of upper-inner quadrant of left [...] on file 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 Gender Identity Not on file Sexual [...] Primary documented in this encounter Care Teams Coil Repair Technician Relationship Specialty Start Date End Date Ravi Smith MD PCP - General 11/04/17 09/27/21 Aft, Kianna Machado MD PhD [address] [place] [address] Surgeon Surgical Oncology 11/22/17 Santiago Gilbert MD [address] [place] [address] Profile Grinder Technician Gastroenterology 11/22/17 Dmitry Sanderson MD [address] [place] [address] Referring Physician Colon and Rectal Surgery 12/03/1805/06 Abbi Ventura MD [address] [place] [address] [address] [place] [address] Medical Oncologist/Biztalk Software Developer Medical Oncology 12/03/18 Montse Thompson MD [address] [place] [address] [address] [place] [address] Consulting Physician Gynecologic Oncology 12/03/18 Lela Hardy MD PhD [address] [place] [address] [address] [place] [address] Radiation Oncologist Radiation Oncology 12/23/18 Aft, Kianna Machado MD PhD [address] [place] [address] [address] [place] [address] Surgeon Surgical Oncology 12/23/18 09/17/21 documented as of this encounter
--- OUTSIDE RECORDS SUMMARY | 2024-04-24 14:54 | XMS_ITS | Encounter Summary ---
Author Organization [facility] Address [address] [place] [address] Phone Care Team Providers Care Food Science Technician Name Role Phone Ravi Smith MD Primary Care Provider [phone] Aft, Kianna Machado MD PhD Unavailable [phone] Santiago Gilbert MD Unavailable [phone] Dmitry Sanderson MD Unavailable [phone] Abbi Ventura MD Unavailable Montse Thompson MD Unavailable [phone] Lela Hardy MD PhD Unavailable [phone] Aft, Kianna Machado MD PhD Unavailable [phone] Encounter Details Date Type Department Care Team (Late st Contact Info) Description 02/05/2019 Orders Only [facility] Pulmonary [address] [facility] Advanced Medicine 8th [place] [address] [place] [address] Cristobal Dong MD [address] [place] [address] Social History Tobacco Use Types [...] on file 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 Gender Identity Not on file Sexual Orientation [...] as of this encounter Care Teams Food Science Technician Relationship Specialty Start Date End Date Ravi Smith MD PCP - General 11/04/17 09/27/21 Aft, Kianna Machado MD PhD [address] [place] [address] Surgeon Surgical Oncology 11/22/17 Santiago Gilbert MD [address] [place] [address] Evaporator Helper Gastroenterology 11/22/17 Dmitry Sanderson MD [address] [place] [address] Referring Physician Colon and Rectal Surgery 12/03/1805/06 Abbi Ventura MD [address] [facility] [address] [place], [place] [address] Medical Oncologist/Pharmaceutical Sales Medical Oncology 12/03/18 Montse Thompson MD [address] [facility] [address] [place], [place] [address] Consulting Physician Gynecologic Oncology 12/03/18 Lela Hardy MD PhD [address] [facility] [address] [place] [address] Radiation Oncologist Radiation Oncology 12/23/18 Aft, Kianna Machado MD PhD [address] [facility] [address] [place], [place] [address] Surgeon Surgical Oncology 12/23/18 09/17/21 documented as of this encounter
--- OUTSIDE RECORDS SUMMARY | 2024-04-24 14:54 | XMS_ITS | Encounter Summary ---
Author Organization [facility] Address [address] [place] [address] Care Team Providers Care [facility] Attendant Name Role Phone Ravi Smith MD Primary Care Provider [phone] Aft, Kianna Machado MD PhD Unavailable [phone] Santiago Gilbert MD Unavailable [phone] Dmitry Sanderson MD Unavailable [phone] Abbi Ventura MD Unavailable Montse Thompson MD Unavailable [phone] Lela Hardy MD PhD Unavailable [phone] Aft, Kianna Machado MD PhD Unavailable [phone] Reason for Referral * Diagnostic Imaging (Routine) - Closed Specialty Diagnoses / Procedures Referred By [facility] Referred To Contact Diagnoses Chronic obstructive pulmonary disease, unspecified COPD type (HCC) Procedures XR Chest Pa Lateral 2 Views Cristobal Dong MD Phone: tel: fax: [facility] Referral ID Status Reason Start Date Expiration Date Visits Re quested Visits Authorized [id number] Closed 10/07/2018 04/17/2020 1 1 Reason for Visit * Diagnostic Imaging (Routine) - Closed Specialty Diagnoses / Procedures Referred By [facility] Referred To Contact Diagnoses Chronic obstructive pulmonary disease, unspecified COPD type (HCC) Procedures XR Chest Pa Lateral 2 Views Cristobal Dong MD Phone: tel: fax: [facility] Referral ID Status Reason Start Date Expiration Date Visits Re quested Visits Authorized [id number] Closed 10/07/2018 04/17/2020 1 1 Encounter Details Date Type Department Care Team (Latest Contact Info) Description 02/05/2019 9:52 AM CDT - 02/05/2019 9:59 AM CDT Hospital Encounter [facility] [address] [place] [address] Cristobal Dong MD [address] [facility] [address] [place] [address] Chronic obstructive pulmonary disease, unspecified [...] on file 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 A right internal jugular [...] There are no prior chest radiographs at [facility] for comparison. A right internal jugular [...] (HCC) documented in this encounter Care Teams [facility] Attendant Relationship Specialty Start Date End Date Ravi Smith MD PCP - General 11/04/17 09/27/21 Aft, Kianna Machado MD PhD [address] [place] [address] Surgeon Surgical Oncology 11/22/17 Santiago Gilbert MD [address] [place] [address] Kitchen Supervisor Gastroenterology 11/22/17 Dmitry Sanderson MD [address] [place] [address] Referring Physician Colon and Rectal Surgery 12/03/1805/06 Abbi Ventura MD [address] [place] [address] [address] [place] [address] Medical Oncologist/Wool Merchant Medical Oncology 12/03/18 Montse Thompson MD [address] [place] [address] [address] [place] [address] Consulting Physician Gynecologic Oncology 12/03/18 Lela Hardy MD PhD [address] [place] [address] [address] [place] [address] Radiation Oncologist Radiation Oncology 12/23/18 Aft, Kianna Machado MD PhD [address] [place] [address] [address] [place] [address] Surgeon Surgical Oncology 12/23/18 09/17/21 documented as of this encounter
--- OUTSIDE RECORDS SUMMARY | 2024-04-24 14:54 | XMS_ITS | Encounter Summary ---
Author Organization [facility] Healthcare Address [address] [place] [address] Care Team Providers Care Laser Engraver Name Role Phone Ravi Smith MD Primary Care Provider [phone] Aft, Kianna Machado MD PhD Unavailable [phone] Santiago Gilbert MD Unavailable [phone] Dmitry Sanderson MD Unavailable [phone] Abbi Ventura MD Unavailable Montse Thompson MD Unavailable Lela Hardy MD PhD Unavailable Aft, Kianna Machado MD PhD Unavailable [phone] Reason for Visit * Reason Comments OTV Encounter Details Date Type Department Care Team (Late st Contact Info) Description 02/04/2019 OTV [facility] Radiation Oncology at [facility] [place] [facility] [address] [place] [address] Lela Hardy MD PhD [address] [facility] [address] [place] [address] Malignant neoplasm of upper-inner quadrant of left [...] on file 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 Gender Identity Not on file Sexual Orientation [...] Stage IIA (pT2, pN0(sn), cM0, G3, ER-, MS-, HER2-) - Signed by Roger Dorsey MD on 12/23/2018 - Clinical: Stage IIB (cT2, cN0, cM0, G3, ER-, MS-, HER2-) - Signed by Lela Hardy MD [...] Primary documented in this encounter Care Teams Laser Engraver Relationship Specialty Start Date End Date Ravi Smith MD PCP - General 11/04/17 09/27/21 Aft, Kianna Machado MD PhD [address] [place] [address] Surgeon Surgical Oncology 11/22/17 Santiago Gilbert MD [address] [place] [address] Vehicle Maintenance Technician Gastroenterology 11/22/17 Dmitry Sanderson MD [address] [place] [address] Referring Physician Colon and Rectal Surgery 12/03/1805/06 Abbi Ventura MD [address] [place] [address] [address] [place] [address] Medical Oncologist/Crust Sorter Medical Oncology 12/03/18 Montse Thompson MD [address] [facility] [address] [place] [address] Consulting Physician Gynecologic Oncology 12/03/18 Lela Hardy MD PhD [address] [facility] [address] [place] [address] Radiation Oncologist Radiation Oncology 12/23/18 Aft, Kianna Machado MD PhD [address] [facility] [address] [place] [address] Surgeon Surgical Oncology 12/23/18 09/17/21 documented as of this encounter
--- OUTSIDE RECORDS SUMMARY | 2024-04-24 14:54 | XMS_ITS | Encounter Summary ---
Author Organization [facility] Address [address] [place] [address] Phone Care Team Providers Care Loss Mitigation Specialist Name Role Phone Ravi Smith MD Primary Care Provider [phone] Aft, Kianna Machado MD PhD Unavailable [phone] Santiago Gilbert MD Unavailable [phone] Dmitry Sanderson MD Unavailable [phone] Abbi Ventura MD Unavailable Montse Thompson MD Unavailable [phone] Lela Hardy MD PhD Unavailable [phone] Aft, Kianna Machado MD PhD Unavailable [phone] Encounter Details Date Type Department Care Team (Late st Contact Info) Description 02/05/2019 Orders Only [facility] Pulmonary [address] [facility] Advanced Medicine 8th [place] [address] [place] [address] Cristobal Dong MD [address] [place] [address] Social History Tobacco Use Types [...] file 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 Gender Identity Not on file Sexual [...] documented as of this encounter Care Teams Loss Mitigation Specialist Relationship Specialty Start Date End Date Ravi Smith MD PCP - General 11/04/17 09/27/21 Aft, Kianna Machado MD PhD [address] [place] [address] Surgeon Surgical Oncology 11/22/17 Santiago Gilbert MD [address] [place] [address] Supervisor Mails Gastroenterology 11/22/17 Dmitry Sanderson MD [address] [place] [address] Referring Physician Colon and Rectal Surgery 12/03/1805/06 Abbi Ventura MD [address] [facility] [address] [place], [place] [id number] Medical Oncologist/Telesales Advisor Medical Oncology 12/03/18 Montse Thompson MD [address] [facility] [address] [place] [address] Consulting Physician Gynecologic Oncology 12/03/18 Lela Hardy MD PhD [address] [facility] [address] [place] [address] Radiation Oncologist Radiation Oncology 12/23/18 Aft, Kianna Machado MD PhD [address] [facility] [address] [place], [place] [address] Surgeon Surgical Oncology 12/23/18 09/17/21 documented as of this encounter
--- OUTSIDE RECORDS SUMMARY | 2024-04-24 14:54 | XMS_ITS | Encounter Summary ---
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 Gender Identity Not on file Sexual [...] PM CDT) Course Name C1 L BRS [place] 2018 ARIA Course Plan Date 12/26/2018 4:45 [...] on filedocumented in this encounter Care Teams Sewage Plant Supervisor Relationship Specialty Start Date End Date Ravi Smith MD PCP - General 11/04/17 09/27/21 Aft, Kianna Machado MD PhD [address] [place] [address] Surgeon Surgical Oncology 11/22/17 Santiago Gilbert MD [address] [place] [address] News Gathering Technician Gastroenterology 11/22/17 Dmitry Sanderson MD [address] [place] [address] Referring Physician Colon and Rectal Surgery 12/03/1805/06 Abbi Ventura MD [address] [facility] [address] [place], [place] [id number] Medical Oncologist/Records Management Coordinator Medical Oncology 12/03/18 Montse Thompson MD [address] [facility] [address] [place], [place] [id number] Consulting Physician Gynecologic Oncology 12/03/18 Lela Hardy MD PhD [address] [place] [address] [address] [place] [address] Radiation Oncologist Radiation Oncology 12/23/18 Aft, Kianna Machado MD PhD [address] [facility] [address] [place], [place] [address] Surgeon Surgical Oncology 12/23/18 09/17/21 documented as of this encounter
--- OUTSIDE RECORDS SUMMARY | 2024-04-24 14:54 | XMS_ITS | Encounter Summary ---
Author Organization [facility] Healthcare Address [address] [place] [address] Care Team Providers Care Underground Truck Operator Name Role Phone Ravi Smith MD Primary Care Provider [phone] Aft, Kianna Machado MD PhD Unavailable [phone] Santiago Gilbert MD Unavailable [phone] Dmitry Sanderson MD Unavailable [phone] Abbi Ventura MD Unavailable Montse Thompson MD Unavailable [phone] Lela Hardy MD PhD Unavailable Aft, Kianna Machado MD PhD Unavailable [phone] Encounter Details Date Type Department Care Team (Late st Contact Info) Description 02/04/2019 2:30 PM CDT Treatment [facility] Radiation Oncology at [facility] [address] [place] [address] Lela Hardy MD PhD [address] 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 Gender Identity Not on file Sexual Orientation Not on file documented as of this encounter Plan of Treatment Not on file documented as of this encounter Visit Diagnoses Not on filedocumented in this encounter Care Teams Underground Truck Operator Relationship Specialty Start Date End Date Ravi Smith MD PCP - General 11/04/17 09/27/21 Aft, Kianna Machado MD PhD [address] [place] [address] Surgeon Surgical Oncology 11/22/17 Santiago Gilbert MD [address] [place] [address] Director Of Radiology Gastroenterology 11/22/17 Dmitry Sanderson MD [address] [place] [address] Referring Physician Colon and Rectal Surgery 12/03/1805/06 Abbi Vent[facility] [address] [place] [address] Medical Oncologist/Skidway Worker Medical Oncology 12/03/18 Montse Thompson MD [facility] [address] [place] [address] Consulting Physician Gynecologic Oncology 12/03/18 Lela Hardy MD PhD [address] [place], [place] [address] Radiation Oncologist Radiation Oncology 12/23/18 Aft, Kianna Machado MD PhD [address] [facility] [address] [place], [place] [address] Surgeon Surgical Oncology 12/23/18 09/17/21 documented as of this encounter
--- OUTSIDE RECORDS SUMMARY | 2024-04-24 14:54 | XMS_ITS | Encounter Summary ---
Author Organization [facility] Healthcare Address [address] [place] [address] Care Team Providers Care Grants Officer Name Role Phone Ravi Smith MD Primary Care Provider [phone] Aft, Kianna Machado MD PhD Unavailable [phone] Santiago Gilbert MD Unavailable [phone] Dmitry Sanderson MD Unavailable [phone] Abbi Ventura MD Unavailable Montse Thompson MD Unavailable [phone] Lela Hardy MD PhD Unavailable [phone] Aft, Kianna Machado MD PhD Unavailable [phone] Encounter Details Date Type Department Care Team (Late st Contact Info) Description 01/29/2019 1:00 PM CDT Treatment [facility] Radiation Oncology at [facility] [address] [place] [address] Social History Tobacco Use Types Packs/Day Years [...] file 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 Gender Identity Not on file Sexual Orientation Not on file documented as of this encounter Plan of Treatment Not on file documented as of this encounter Visit Diagnoses Not on filedocumented in this encounter Care Teams Grants Officer Relationship Specialty Start Date End Date Ravi Smith MD PCP - General 11/04/17 09/27/21 AfKianna simpson MD PhD [address] [place] [address] Surgeon Surgical Oncology 11/22/17 Santiago Gilbert MD [address] [place] [address] Business Law Teacher Gastroenterology 11/22/17 Dmitry Sanderson MD [address] [place] [address] Referring Physician Colon and Rectal Surgery 12/03/1805/06 Abbi Ventura MD [address] [place] [address] [address] [place] [address] Medical Oncologist/Investment Executive Medical Oncology 12/03/18 Montse Thompson MD [address] [facility] [address] [place], [place] [address] Consulting Physician Gynecologic Oncology 12/03/18 Lela Hardy MD PhD [address] [place] [address] [address] [place] [address] Radiation Oncologist Radiation Oncology 12/23/18 Kianna Bunch MD PhD [address] [facility] [address] [place] [address] Surgeon Surgical Oncology 12/23/18 09/17/21 documented as of this encounter
--- OUTSIDE RECORDS SUMMARY | 2024-04-24 14:54 | XMS_ITS | Encounter Summary ---
Author Organization [facility] Healthcare Address [address] [place] [address] Care Team Providers Care Commissioning Engineer Name Role Phone Ravi Smith MD Primary Care Provider [phone] Aft, Kianna Machado MD PhD Unavailable aSntiago Gilbert MD Unavailable [phone] Dmitry Sanderson MD Unavailable [phone] Abbi Ventura MD Unavailable Montse Thompson MD Unavailable [phone] Lela Hardy MD PhD Unavailable [phone] Aft, Kianna Machado MD PhD Unavailable [phone] Encounter Details Date Type Department Care Team (Late st Contact Info) Description 02/04/2019 Documentation [facility] Radiation Oncology at [facility] Cancer [facility] [address] [place] [address] Zulema Dior, HEAD OF MAINTENANCE [address] [facility] [address] [place] [address] Social History Tobacco Use Types Packs/Day Years [...] on file Legal 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 Setup verification was performed with daily CBCT and weekly port films. This was followed by a sequential boost to the tumor bed, with a dose of 1000 cGy delivered in 5 fractions of 200 cGy using 3D-AUDIT ASSOCIATE. Treatment was initiated on 01/07/19 and was [...] on filedocumented in this encounter Care Teams Commissioning Engineer Relationship Specialty Start Date End Date Ravi Smith MD PCP - General 11/04/17 09/27/21 Aft, Kianna Machado MD PhD [address] [place] [address] Surgeon Surgical Oncology 11/22/17 Santiago Gilbert MD [address] [place] [address] Orthopedic Coder Gastroenterology 11/22/17 Dmitry Sanderson MD [address] [place] [address] Referring Physician Colon and Rectal Surgery 12/03/1805/06 Abbi Ventura MD [address] [place] [address] [address] [place] [address] Medical Oncologist/Basket Grader Medical Oncology 12/03/18 Montse Thompson MD [address] [place] [address] [address] [place] [address] Consulting Physician Gynecologic Oncology 12/03/18 Lela Hardy MD PhD [address] [place] [address] [address] [place] [address] Radiation Oncologist Radiation Oncology 12/23/18 Aft, Kianna Machado MD PhD [address] [place] [address] [address] [place] [address] Surgeon Surgical Oncology 12/23/18 09/17/21 documented as of this encounter
--- OUTSIDE RECORDS SUMMARY | 2024-04-24 14:54 | XMS_ITS | Encounter Summary ---
Author Organization [facility] Healthcare Address [address] [place] [address] Care Team Providers Care Product Introduction Manager Name Role Phone Ravi Smith MD Primary Care Provider [phone] Aft, Kianna Machado MD PhD Unavailable [phone] Santiago Gilbert MD Unavailable [phone] Dmitry Sanderson MD Unavailable [phone] Abbi Ventura MD Unavailable Montse Thompson MD Unavailable [phone] Lela Hardy MD PhD Unavailable [phone] Aft, Kianna Machado MD PhD Unavailable [phone] Encounter Details Date Type Department Care Team (Late st Contact Info) Description 02/03/2019 1:00 PM CDT Treatment [facility] Radiation Oncology at [facility] [address] [place] [address] Social History Tobacco Use Types Packs/Day Years [...] on file 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 Gender Identity Not on file Sexual Orientation Not on file documented as of this encounter Plan of Treatment Not on file documented as of this encounter Visit Diagnoses Not on filedocumented in this encounter Care Teams Product Introduction Manager Relationship Specialty Start Date End Date Ravi Smith MD PCP - General 11/04/17 09/27/21 AfKianna simpson MD PhD [address] [place] [address] Surgeon Surgical Oncology 11/22/17 Santiago Gilbert MD [address] [place] [address] Chemist Organic Gastroenterology 11/22/17 Dmitry Sanderson MD [address] [place] [address] Referring Physician Colon and Rectal Surgery 12/03/1805/06 Abbi Ventura MD [address] [place] [address] [address] [place] [address] Medical Oncologist/Dry Color Tester Medical Oncology 12/03/18 Montse Thompson MD [address] [facility] [address] [place], [place] [address] Consulting Physician Gynecologic Oncology 12/03/18 Lela Hardy MD PhD [address] [place] [address] [address] [place] [address] Radiation Oncologist Radiation Oncology 12/23/18 Kianna Bunch MD PhD [address] [facility] [address] [place] [address] Surgeon Surgical Oncology 12/23/18 09/17/21 documented as of this encounter
--- OUTSIDE RECORDS SUMMARY | 2024-04-24 14:54 | XMS_ITS | Encounter Summary ---
Author Organization [facility] Healthcare Address [address] [place] [address] Care Team Providers Care Carpenter Inspector Name Role Phone Ravi Smith MD Primary Care Provider [phone] Aft, Kianna Machado MD PhD Unavailable [phone] Santiago Gilbert MD Unavailable [phone] Dmitry Sanderson MD Unavailable [phone] Abbi Ventura MD Unavailable Montse Thompson MD Unavailable [phone] Lela Hardy MD PhD Unavailable [phone] Aft, Kianna Machado MD PhD Unavailable [phone] Encounter Details Date Type Department Care Team [...] on file 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 Gender Identity Not on file Sexual [...] PM CDT) Course Name C1 L BRS DC 2018 ARIA Course Plan Date 12/26/2018 4:45 [...] on filedocumented in this encounter Care Teams Carpenter Inspector Relationship Specialty Start Date End Date Ravi Smith MD PCP - General 11/04/17 09/27/21 Aft, Kianna Machado MD PhD [address] [place] [address] Surgeon Surgical Oncology 11/22/17 Santiago Gilbert MD [address] [place] [address] Harpsichord Maker Gastroenterology 11/22/17 Dmitry Sanderson MD [address] [place] [address] Referring Physician Colon and Rectal Surgery 12/03/1805/06 Abbi Ventura MD [address] [place] [address] [address] [place], [place] [id number] Medical Oncologist/Cemetery Warden Medical Oncology 12/03/18 Montse Thompson MD [address] [facility] [address] [place], [place] [id number] Consulting Physician Gynecologic Oncology 12/03/18 Lela Hardy MD PhD [address] [place] [address] [address] [place], [place] [id number] Radiation Oncologist Radiation Oncology 12/23/18 Aft, Kianna Machado MD PhD [address] [place] [address] [address] [place], [place] [id number] Surgeon Surgical Oncology 12/23/18 09/17/21 documented as of this encounter
--- OUTSIDE RECORDS SUMMARY | 2024-04-24 14:54 | XMS_ITS | Encounter Summary ---
Author Organization [facility] Address [address] [place] [address] Phone Care Team Providers Care Mill Order Scheduler Name Role Phone Hugo Smith MD Primary Care Provider [phone] Aft, Tony Machado MD PhD Unavailable [phone] Santiago Gilbert MD Unavailable [phone] Dmitry Sanderson MD Unavailable [phone] Birdie Ventura MD Unavailable Montse Carter MD Unavailable [phone] Lela Hardy MD PhD Unavailable [phone] Aft, Tony Machado MD PhD Unavailable [phone] Reason for Referral * Pulmonology (Routine) - Closed Specialty Diagnoses / Procedures Referred By Contac t Referred To Contact Pulmonology Diagnoses Other acute pulmonary embolism without acute cor pulmonale (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) Chronic obstructive pulmonary disease, unspecified COPD type (HCC) Procedures Pulmonary Function Test -[facility]- CAM-8D; Meth Challenge Cristobal Dong MD [address] [place] [address] Phone: tel: fax: [facility] Pulmonary [address] [facility] [address] [place] [address] Phone: tel: fax: Referral ID Status Reason Start Date Expiration Date Visits Re quested Visits Authorized [id number] Closed 02/05/2019 08/16/2020 99 99 * Consultation (Routine) - Closed Specialty Diagnoses / Procedures Referred By Contac t Referred To Contact Sleep Medicine Diagnoses Other acute pulmonary embolism without acute cor pulmonale (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) Chronic obstructive pulmonary disease, unspecified COPD type (HCC) Cristobal Dong MD [address] [place] [address] Phone: tel: fax: [facility] (All Locations) Referral ID Status Reason Start Date Expiration Date V isits Requested Visits Authorized [id number] Closed Specialty Services Required 02/05/2019 08/16/2020 1 1 Question Answer Please select the performing region: [facility] (All Locations) [167] # of visits: [...] Expiration Date V isits Requested Visits Authorized [id number] Closed Specialty Services Required 10/02/2018 04/12/2020 1 1 Encounter Details Date Type Department Care Team (Late st Contact Info) Description 02/05/2019 11:00 AM CDT Office Visit [facility] Pulmonary [address] [facility] 8th [place] [address] [place] [id number] Cristobal Dong MD [address] [place] [address] Malignant neoplasm of descending colon (CMS/HCC) (Primary [...] on file Legal Sex Female 1:06 AM UX DESIGN LEAD Gender Identity Not on file Sexual [...] 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 She was exposed to exhaust fumes from small engines, such as lawn mowing engines, including from [employer] shop which was poorly ventilated. She denies [...] unless documented above. I have reviewed the [facility] Health Questionnaire and entered it to be [...] - 02/05/2019 04:47 PM Cristobal Dong M.D. captain cannery tender /mt cc: BIRDIE VENTURA M.D. [address] [place] [phone] MONTSE CARTER MD [facility] Gynecological Oncology [address] [place] [address] HUGO SMITH MD [address] [place] [address] [place] [address] / TONY GAY MD [facility] [address] [place] [address] documented in this encounter Plan of Treatment [...] Pulmonary Function Test - (03/12/2019 10:01 AM UX DESIGN LEAD) FVC PRED 3.71 0.05 - 9.99 Liters [...] 76 0 - 12 % [facility] IUR90-94% PRED 2.47 0 - 12 L/sec [facility] ZEE41-77% PRE 1.89 0 - 12 L/sec [facility] AHW54-51% %PRE PRED 76 0 - 300 % [facility] JZL28-77% POST 1.40 0 - 12 L/sec [facility] RKS13-34% %POST PRED 56 0 - 300 % [facility] EJU78-67% %CHNG -26 0 - 300 % [facility] [...] %POST PRED 113 0 - 300 % [facility] PEF %CHNG 4 0 - 300 % [facility] WOT766% %CHNG 7 % [facility] PIF PRE 5.35 0 - 18 L/sec [facility] PIF POST 5.28 0 - 18 L/sec [facility] PIF %CHNG -1 0 - 300 % [facility] FEV6 PRE 2.63 0 - 12 Liters [facility] FEV6 POST 2.56 0 - 12 Liters [facility] FEV6 % CHG -3 0 - 300 % [facility] FEV1/FEV6 PRE 79 0 - 12 % [facility] FEV1/FEV6 POST 78 0 - 12 % [facility] VC PRED 3.54 0.05 - 9.99 Liters [facility] TLC PRED 5.79 0.05 - 11.99 Liters [facility] RV PRED 2.25 0.05 - 9.99 Liters [facility] RV/TLC PRED 40 0 - 300 % [facility] FRC N2 PRED 2.81 0.05 - 9.99 Liters [facility] FRC PL PRED 3.31 0.05 - 9.99 Liters [facility] ERV PRED 1.22 0.05 - 9.99 Liters [facility] DLCO PRED 27.6 0.05 - 99.99 mL/mmHg/min [facility] DL ADJ PRED 27.6 1 - 2 mL/mmHg/min [facility] DLCO/VA PRED 5.05 mL/mHg/min/ L [facility] DL/VA ADJ PRED 3.83 mL/mHg/min/ L [facility] RAW PRED 1.14 cmH2O/L/sec [facility] GAW PRED 0.794 L/sec/cmH2O [facility] SRAW PRED 3.76 cmH2O/L/s/L [facility] SGAW PRED 0.261 L/s/cmH2O/L [facility] Anatomical Region Laterality Modality PFT 03/12/2019 9:02 AM UX DESIGN LEAD Narrative 03/17/2019 11:39 AM UX DESIGN LEAD SEE PDF Cristobal Dong MD PFT ORDERABLES [...] 02/05/2019 documented in this encounter Care Teams Mill Order Scheduler Relationship Specialty Start Date End Date Hugo Smith MD PCP - General 11/04/17 09/27/21 Aft, Tony Machado MD PhD [address] [place] [address] Surgeon Surgical Oncology 11/22/17 Santiago Gilbert MD [address] [place] [address] Manager Infusion Gastroenterology 11/22/17 Dmitry Sanderson MD [address] [place] [address] Referring Physician Colon and Rectal Surgery 12/03/1805/06 Birdie Ventura MD [address] [facility] [address] [place] [address] Medical Oncologist/Barrel Endshake Adjuster Medical Oncology 12/03/18 Montse Carter MD [address] [facility] [address] [place] [address] Consulting Physician Gynecologic Oncology 12/03/18 Lela Hardy MD PhD [address] [facility] [address] [place], [place] [id number] Radiation Oncologist Radiation Oncology 12/23/18 Aft, Tony Machado MD PhD [address] [facility] [address] [place], [place] [address] Surgeon Surgical Oncology 12/23/18 09/17/21 documented as of this encounter
--- OUTSIDE RECORDS SUMMARY | 2024-04-24 14:54 | XMS_ITS | Encounter Summary ---
Author Organization [facility] Healthcare Address [address] [place] [address] Care Team Providers Care Director Business Name Role Phone Ravi Smith MD Primary Care Provider [phone] Aft, Kianna Machado MD PhD Unavailable [phone] Santiago Gilbert MD Unavailable [phone] Dmitry Sanderson MD Unavailable [phone] Abbi Ventura MD Unavailable Montse Thompson MD Unavailable [phone] Lela Hardy MD PhD Unavailable [phone] Aft, Kianna Machado MD PhD Unavailable [phone] Encounter Details Date Type Department Care Team (Late st Contact Info) Description 01/30/2019 1:00 PM CDT Treatment [facility] Radiation Oncology at [facility] [address] [place] [address] Social History Tobacco Use Types Packs/Day Years [...] on file 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 Gender Identity Not on file Sexual Orientation Not on file documented as of this encounter Plan of Treatment Not on file documented as of this encounter Visit Diagnoses Not on filedocumented in this encounter Care Teams Director Business Relationship Specialty Start Date End Date Ravi Smith MD PCP - General 11/04/17 09/27/21 AfKianna simpson MD PhD [address] [place] [address] Surgeon Surgical Oncology 11/22/17 Santiago Gilbert MD [address] [place] [address] Officer Captain Gastroenterology 11/22/17 Dmitry Sanderson MD [address] [place] [address] Referring Physician Colon and Rectal Surgery 12/03/1805/06 Abbi Ventura MD [address] [place] [address] [address] [place] [address] Medical Oncologist/Color Weigher Medical Oncology 12/03/18 Montse Thompson MD [address] [facility] [address] [place], [place] [address] Consulting Physician Gynecologic Oncology 12/03/18 Lela Hardy MD PhD [address] [place] [address] [address] [place] [address] Radiation Oncologist Radiation Oncology 12/23/18 Kianna Bunch MD PhD [address] [facility] [address] [place] [address] Surgeon Surgical Oncology 12/23/18 09/17/21 documented as of this encounter
--- OUTSIDE RECORDS SUMMARY | 2024-04-24 14:54 | XMS_ITS | Encounter Summary ---
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 Gender Identity Not on file Sexual [...] PM CDT) Course Name C1 L BRS [place] 2018 ARIA Course Plan Date 12/26/2018 4:45 [...] on filedocumented in this encounter Care Teams Pipe Chipper Relationship Specialty Start Date End Date Ravi Smith MD PCP - General 11/04/17 09/27/21 Aft, Kianna Machado MD PhD [address] [place] [address] Surgeon Surgical Oncology 11/22/17 Santiago Gilbert MD [address] [place] [address] Cotton Jammer Gastroenterology 11/22/17 Dmitry Sanderson MD [address] [place] [address] Referring Physician Colon and Rectal Surgery 12/03/1805/06 Abbi Ventura MD [address] [facility] [address] [place], [place] [id number] Medical Oncologist/Manager Clinical Research Medical Oncology 12/03/18 Montse Thompson MD [address] [facility] [address] [place], [place] [id number] Consulting Physician Gynecologic Oncology 12/03/18 Lela Hardy MD PhD [address] [place] [address] [address] [place] [address] Radiation Oncologist Radiation Oncology 12/23/18 Aft, Kianna Machado MD PhD [address] [facility] [address] [place], [place] [address] Surgeon Surgical Oncology 12/23/18 09/17/21 documented as of this encounter
--- OUTSIDE RECORDS SUMMARY | 2024-04-24 14:54 | XMS_ITS | Encounter Summary ---
Author Organization [facility] Healthcare Address [address] [place] [address] Care Team Providers Care Health Care Technician Name Role Phone Ravi Smith MD Primary Care Provider [phone] Aft, Kianna Machado MD PhD Unavailable [phone] Santiago Gilbert MD Unavailable [phone] Dmitry Sanderson MD Unavailable [phone] Abbi Ventura MD Unavailable Montse Thompson MD Unavailable [phone] Lela Hardy MD PhD Unavailable [phone] Aft, Kianna Machado MD PhD Unavailable [phone] Encounter Details Date Type Department Care Team (Late st Contact Info) Description 01/28/2019 1:00 PM CDT Treatment [facility] Radiation Oncology at 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 Gender Identity Not on file Sexual Orientation Not on file documented as of this encounter Plan of Treatment Not on file documented as of this encounter Visit Diagnoses Not on filedocumented in this encounter Care Teams Health Care Technician Relationship Specialty Start Date End Date Ravi Smith MD PCP - General 11/04/17 09/27/21 AfKianna simpson MD PhD [address] [place] [address] Surgeon Surgical Oncology 11/22/17 Santiago Gilbert MD [address] [place] [address] Senior Network Security Architect Gastroenterology 11/22/17 Dmitry Sanderson MD [address] [place] [address] Referring Physician Colon and Rectal Surgery 12/03/1805/06 Abbi Ventura MD [address] [place] [address] [address] [place] [address] Medical Oncologist/Painter Ski Edge Medical Oncology 12/03/18 Montse Thompson MD [address] [facility] [address] [place], [place] [address] Consulting Physician Gynecologic Oncology 12/03/18 Lela Hardy MD PhD [address] [place] [address] [address] [place] [address] Radiation Oncologist Radiation Oncology 12/23/18 Kianna Bunch MD PhD [address] [facility] [address] [place] [address] Surgeon Surgical Oncology 12/23/18 09/17/21 documented as of this encounter
--- OUTSIDE RECORDS SUMMARY | 2024-04-24 14:54 | XMS_ITS | Encounter Summary ---
Author Organization [facility] Healthcare Address [address] [place] [address] Care Team Providers Care Tube Coremaker Name Role Phone Ravi Simth MD Primary Care Provider [phone] Aft, Kianna Machado MD PhD Unavailable [phone] Santiago Gilbert MD Unavailable [phone] Dmitry Sanderson MD Unavailable [phone] Abbi Ventura MD Unavailable Montse Thompson MD Unavailable [phone] Lela Hardy MD PhD Unavailable [phone] Aft, Kianna Machado MD PhD Unavailable [phone] Encounter Details Date Type Department Care Team (Late st Contact Info) Description 02/02/2019 1:00 PM CDT Treatment [facility] Rad[facility] Oncology at 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 Gender Identity Not on file Sexual Orientation Not on file documented as of this encounter Plan of Treatment Not on file documented as of this encounter Visit Diagnoses Not on filedocumented in this encounter Care Teams Tube Coremaker Relationship Specialty Start Date End Date Ravi Smith MD PCP - General 11/04/17 09/27/21 AfKianna simpson MD PhD [address] [place] [address] Surgeon Surgical Oncology 11/22/17 Santiago Gilbert MD [address] [place] [address] Machine Precision Etcher Gastroenterology 11/22/17 Dmitry Sanderson MD [address] [place] [address] Referring Physician Colon and Rectal Surgery 12/03/1805/06 Abbi Ventura MD [address] [place] [address] [address] [place] [address] Medical Oncologist/Director Camp Medical Oncology 12/03/18 Montse Thompson MD [address] [facility] [address] [place], [place] [address] Consulting Physician Gynecologic Oncology 12/03/18 Lela Hardy MD PhD [address] [place] [address] [address] [place] [address] Radiation Oncologist Radiation Oncology 12/23/18 Kianna Bunch MD PhD [address] [facility] [address] [place] [address] Surgeon Surgical Oncology 12/23/18 09/17/21 documented as of this encounter
--- OUTSIDE RECORDS SUMMARY | 2024-04-24 14:55 | XMS_ITS | Encounter Summary ---
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 Gender Identity Not on file Sexual [...] on filedocumented in this encounter Care Teams Vacuum Bottle Assembler Relationship Specialty Start Date End Date Ravi Smith MD PCP - General 11/04/17 09/27/21 Aft, Kianna Machado MD PhD [address] [place] [address] Surgeon Surgical Oncology 11/22/17 Santiago Gilbert MD [address] [place] [address] Child Care Giver Gastroenterology 11/22/17 Dmitry Sanderson MD [address] [place] [address] Referring Physician Colon and Rectal Surgery 12/03/1805/06 Abbi Ventura MD [address] [facility] [address] [place], [place] [address] Medical Oncologist/Certified Residential Medication Aide Medical Oncology 12/03/18 Montse Thompson MD [address] [facility] [address] [place], [place] [address] Consulting Physician Gynecologic Oncology 12/03/18 Lela Hardy MD PhD [address] [place] [address] [address] [place], [place] [address] Radiation Oncologist Radiation Oncology 12/23/18 Aft, Kianna Machado MD PhD [address] [place] [address] [address] [place], [place] [address] Surgeon Surgical Oncology 12/23/18 09/17/21 documented as of this encounter
--- OUTSIDE RECORDS SUMMARY | 2024-04-24 14:55 | XMS_ITS | Encounter Summary ---
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 Gender Identity Not on file Sexual [...] PM CDT) Course Name C1 L BRS [place] 2018 ARIA Course Plan Date 12/26/2018 4:45 [...] on filedocumented in this encounter Care Teams Parasitologist Relationship Specialty Start Date End Date Ravi Smith MD PCP - General 11/04/17 09/27/21 Aft, Kianna Machado MD PhD [address] [place] [address] Surgeon Surgical Oncology 11/22/17 Santiago Gilbert MD [address] [place] [address] Facilities Assistant Gastroenterology 11/22/17 Dmitry Sanderson MD [address] [place] [address] Referring Physician Colon and Rectal Surgery 12/03/1805/06 Abbi Ventura MD [address] [facility] [address] [place], [place] [address] Medical Oncologist/Showroom Executive Director Medical Oncology 12/03/18 Montse Thompson MD [address] [facility] [address] [place], [place] [address] Consulting Physician Gynecologic Oncology 12/03/18 Lela Hardy MD PhD [address] [place] [address] [address] [place], [place] [address] Radiation Oncologist Radiation Oncology 12/23/18 Aft, Kianna Machado MD PhD [address] [place] [address] [address] [place], [place] [address] Surgeon Surgical Oncology 12/23/18 09/17/21 documented as of this encounter
--- OUTSIDE RECORDS SUMMARY | 2024-04-24 14:55 | XMS_ITS | Encounter Summary ---
Author Organization 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 Gender Identity Not on file Sexual Orientation Not on file documented as of this encounter Plan of Treatment Not on file documented as of this encounter Procedures Procedure Name Priority Date/Time Associated Diagnosis Comments RAD ONC ARIA SESSION SUMMARY 01/16/2019 2:11 PM CDT documented in this encounter Results * RAD ONC ARIA SESSION SUMMARY (01/16/2019 2:11 PM CDT) Course Name C1 L BRS [place] 2018 ARIA Course Plan Date 12/26/2018 4:45 [...] on filedocumented in this encounter Care Teams Model Maker Relationship Specialty Start Date End Date Ravi Smith MD PCP - General 11/04/17 09/27/21 Aft, Kianna Machado MD PhD [address] [place] [address] Surgeon Surgical Oncology 11/22/17 Santiago Gilbert MD [address] [place] [address] Thermometer Tester Gastroenterology 11/22/17 Dmitry Sanderson MD [address] [place] [address] Referring Physician Colon and Rectal Surgery 12/03/1805/06 Abbi Ventura MD [address] [place] [address] [address] [place], [place] [address] Medical Oncologist/Candy Spreader Medical Oncology 12/03/18 Montse Thompson MD [address] [facility] [address] [place], [place] [address] Consulting Physician Gynecologic Oncology 12/03/18 Lela Hardy MD PhD [address] [place] [address] [address] [place], [place] [address] Radiation Oncologist Radiation Oncology 12/23/18 Aft, Kianna Machado MD PhD [address] [place] [address] [address] [place], [place] [address] Surgeon Surgical Oncology 12/23/18 09/17/21 documented as of this encounter
--- OUTSIDE RECORDS SUMMARY | 2024-04-24 14:55 | XMS_ITS | Encounter Summary ---
Author Organization [facility] Healthcare Address [address] [place] [address] Care Team Providers Care Online Journalist Name Role Phone Ravi Smith MD Primary Care Provider [phone] Aft, Kianna Machado MD PhD Unavailable [phone] Santiago Gilbert MD Unavailable [phone] Dmitry Sanderson MD Unavailable [phone] Abbi Ventura MD Unavailable Montse Thompson MD Unavailable [phone] Lela Hardy MD PhD Unavailable Aft, Kianna Machado MD PhD Unavailable [phone] Encounter Details Date Type Department Care Team (Late st Contact Info) Description 01/09/2019 2:00 PM CDT Treatment [facility] Radiation Oncology at [facility] [address] [place] [address] Social History Tobacco Use Types Packs/Day Years [...] on file 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 Gender Identity Not on file Sexual Orientation Not on file documented as of this encounter Plan of Treatment Not on file documented as of this encounter Visit Diagnoses Not on filedocumented in this encounter Care Teams Online Journalist Relationship Specialty Start Date End Date Ravi Smith MD PCP - General 11/04/17 09/27/21 AfKianna simpson MD PhD [address] [place] [address] Surgeon Surgical Oncology 11/22/17 Santiago Gilbert MD [address] [place] [address] Outside Deliverer Gastroenterology 11/22/17 Dmitry Sanderson MD [address] [place] [address] Referring Physician Colon and Rectal Surgery 12/03/1805/06 Abbi Ventura MD [address] [place] [address] [address] [place] [address] Medical Oncologist/Roll Icer Machine Medical Oncology 12/03/18 Montse Thompson MD [address] [facility] [address] [place], [place] [address] Consulting Physician Gynecologic Oncology 12/03/18 Lela Hardy MD PhD [address] [place] [address] [address] [place] [address] Radiation Oncologist Radiation Oncology 12/23/18 Kianna Bunch MD PhD [address] [facility] [address] [place] [address] Surgeon Surgical Oncology 12/23/18 09/17/21 documented as of this encounter
--- OUTSIDE RECORDS SUMMARY | 2024-04-24 14:55 | XMS_ITS | Encounter Summary ---
Author Organization [facility] Healthcare Address [address] [place] [address] Care Team Providers Care Sales Inspector Name Role Phone Ravi Smith MD Primary Care Provider [phone] Aft, Kianna Machado MD PhD Unavailable Santiago Gilbert MD Unavailable [phone] Dmitry Sanderson MD Unavailable [phone] Abbi Ventura MD Unavailable Montse Thompson MD Unavailable [phone] Lela Hardy MD PhD Unavailable [phone] Aft, Kianna Machado MD PhD Unavailable [phone] Encounter Details Date Type Department Care Team (Late st Contact Info) Description 01/08/2019 2:15 PM CDT Treatment [facility] Radiation Oncology at [facility] [address] [place] [address] Social History Tobacco Use Types Packs/Day Years [...] file 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 Gender Identity Not on file Sexual Orientation Not on file documented as of this encounter Plan of Treatment Not on file documented as of this encounter Visit Diagnoses Not on filedocumented in this encounter Care Teams Sales Inspector Relationship Specialty Start Date End Date Ravi Smith MD PCP - General 11/04/17 09/27/21 AfKianna simpson MD PhD [address] [place] [address] Surgeon Surgical Oncology 11/22/17 Santiago Gilbert MD [address] [place] [address] Roustabout Crew Leader Gastroenterology 11/22/17 Dmitry Sanderson MD [address] [place] [address] Referring Physician Colon and Rectal Surgery 12/03/1805/06 Abbi Ventura MD [address] [place] [address] [address] [place] [address] Medical Oncologist/Instrument Engineer Medical Oncology 12/03/18 Montse Thompson MD [address] [facility] [address] [place], [place] [address] Consulting Physician Gynecologic Oncology 12/03/18 Lela Hardy MD PhD [address] [place] [address] [address] [place] [address] Radiation Oncologist Radiation Oncology 12/23/18 Kianna Bunch MD PhD [address] [facility] [address] [place] [address] Surgeon Surgical Oncology 12/23/18 09/17/21 documented as of this encounter
--- OUTSIDE RECORDS SUMMARY | 2024-04-24 14:55 | XMS_ITS | Encounter Summary ---
Author Organization [facility] Healthcare Address [address] [place] [address] Care Team Providers Care Drug Inspector Name Role Phone Ravi Smith MD Primary Care Provider [phone] Aft, Kianna Machado MD PhD Unavailable [phone] Santiago Gilbert MD Unavailable [phone] Dmitry Sanderson MD Unavailable [phone] Abbi Ventura MD Unavailable Montse Thompson MD Unavailable [phone] Lela Hardy MD PhD Unavailable [phone] Aft, Kianna Machado MD PhD Unavailable Encounter Details Date Type Department Care Team (Late st Contact Info) Description 01/19/2019 1:30 PM CDT Treatment [facility] Radiation Oncology at [facility] [address] [place] [address] Social History Tobacco Use Types Packs/Day Years [...] file 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 Gender Identity Not on file Sexual Orientation Not on file documented as of this encounter Plan of Treatment Not on file documented as of this encounter Visit Diagnoses Not on filedocumented in this encounter Care Teams Drug Inspector Relationship Specialty Start Date End Date Ravi Smith MD PCP - General 11/04/17 09/27/21 AfKianna simpson MD PhD [address] [place] [address] Surgeon Surgical Oncology 11/22/17 Santiago Gilbert MD [address] [place] [address] Student Accounts Manager Gastroenterology 11/22/17 Dmitry Sanderson MD [address] [place] [address] Referring Physician Colon and Rectal Surgery 12/03/1805/06 Abbi Ventura MD [address] [place] [address] [address] [place] [address] Medical Oncologist/Forestry Aide Medical Oncology 12/03/18 Montse Thompson MD [address] [facility] [address] [place], [place] [address] Consulting Physician Gynecologic Oncology 12/03/18 Lela Hardy MD PhD [address] [place] [address] [address] [place] [address] Radiation Oncologist Radiation Oncology 12/23/18 Kianna Bunch MD PhD [address] [facility] [address] [place] [address] Surgeon Surgical Oncology 12/23/18 09/17/21 documented as of this encounter
--- OUTSIDE RECORDS SUMMARY | 2024-04-24 14:55 | XMS_ITS | Encounter Summary ---
Author Organization [facility] Healthcare Address [address] [place] [address] Care Team Providers Care Engineer Booster And Exhauster Name Role Phone Ravi Smith MD Primary Care Provider [phone] Aft, Kianna Machado MD PhD Unavailable [phone] Santiago Gilbert MD Unavailable [phone] Dmitry Sanderson MD Unavailable [phone] Abbi Ventura MD Unavailable Montse Thompson MD Unavailable [phone] Lela Hardy MD PhD Unavailable [phone] Aft, Kianna Machado MD PhD Unavailable [phone] Encounter Details Date Type Department Care Team [...] file 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 Gender Identity Not on file Sexual [...] AM CDT) Course Name C1 L BRS [place] [...] filedocumented in this encounter Care Teams Engineer Booster And Exhauster Relationship Specialty Start Date End Date Ravi Smith MD PCP - General 11/04/17 09/27/21 Aft, Kianna Machado MD PhD [address] [place] [address] Surgeon Surgical Oncology 11/22/17 Santiago Gilbert MD [address] [place] [address] Printer Slotter Helper Gastroenterology 11/22/17 Dmitry Sanderson MD [address] [place] [address] Referring Physician Colon and Rectal Surgery 12/03/1805/06 Abbi Ventura MD [address] [place] [address] [address] [place], [place] [address] Medical Oncologist/Helium Arc Welder Medical Oncology 12/03/18 Montse Thompson MD [address] [facility] [address] [place], [place] [address] Consulting Physician Gynecologic Oncology 12/03/18 Lela Hardy MD PhD [address] [place] [address] [address] [place], [place] [id number] Radiation Oncologist Radiation Oncology 12/23/18 Aft, Kianna Machado MD PhD [address] [place] [address] [address] [place], [place] [address] Surgeon Surgical Oncology 12/23/18 09/17/21 documented as of this encounter
--- OUTSIDE RECORDS SUMMARY | 2024-04-24 14:55 | XMS_ITS | Encounter Summary ---
Author Organization [facility] Healthcare Address [address] [place] [address] Care Team Providers Care Robot Programmer Name Role Phone Ravi Smith MD Primary Care Provider [phone] Aft, Kianna Machado MD PhD Unavailable [phone] Santiago Gilbert MD Unavailable [phone] Dmitry Sanderson MD Unavailable [phone] Abbi Ventrua MD Unavailable Montse Thompson MD Unavailable [phone] Lela Hardy MD PhD Unavailable [phone] Aft, Kianna Machado MD PhD Unavailable Encounter Details Date Type Department Care Team (Late st Contact Info) Description 01/15/2019 2:15 PM CDT Treatment [facility] Radiation Oncology at [facility] [address] [place] [address] Social History Tobacco Use Types Packs/Day Years [...] on file 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 Gender Identity Not on file Sexual Orientation Not on file documented as of this encounter Plan of Treatment Not on file documented as of this encounter Visit Diagnoses Not on filedocumented in this encounter Care Teams Robot Programmer Relationship Specialty Start Date End Date Ravi Smith MD PCP - General 11/04/17 09/27/21 AfKianna simpson MD PhD [address] [place] [address] Surgeon Surgical Oncology 11/22/17 Santiago Gilbert MD [address] [place] [address] Benefits Specialist Recruiter Gastroenterology 11/22/17 Dmitry Sanderson MD [address] [place] [address] Referring Physician Colon and Rectal Surgery 12/03/1805/06 Abbi Ventura MD [address] [place] [address] [address] [place] [address] Medical Oncologist/Director Critical Care Medical Oncology 12/03/18 Montse Thompson MD [address] [facility] [address] [place], [place] [address] Consulting Physician Gynecologic Oncology 12/03/18 Lela Hardy MD PhD [address] [place] [address] [address] [place] [address] Radiation Oncologist Radiation Oncology 12/23/18 Kianna Bunch MD PhD [address] [facility] [address] [place] [address] Surgeon Surgical Oncology 12/23/18 09/17/21 documented as of this encounter
--- OUTSIDE RECORDS SUMMARY | 2024-04-24 14:55 | XMS_ITS | Encounter Summary ---
Author Organization [facility] Healthcare Address [address] [place] [address] Care Team Providers Care Mail Room Name Role Phone Ravi Smith MD Primary Care Provider [phone] Aft, Kianna Machado MD PhD Unavailable [phone] Santiago Gilbert MD Unavailable [phone] Dmitry Sanderson MD Unavailable [phone] Abbi Ventura MD Unavailable Montse Thompson MD Unavailable Lela Hardy MD PhD Unavailable [phone] Aft, Kianna Machado MD PhD Unavailable [phone] Encounter Details Date Type Department Care Team (Late st Contact Info) Description 01/21/2019 1:[address] 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 Gender Identity Not on file Sexual Orientation Not on file documented as of this encounter Plan of Treatment Not on file documented as of this encounter Visit Diagnoses Not on filedocumented in this encounter Care Teams Mail Room Relationship Specialty Start Date End Date Ravi Smith MD PCP - General 11/04/17 09/27/21 AfKianna simpson MD PhD [address] [place] [address] Surgeon Surgical Oncology 11/22/17 Santiago Gilbert MD [address] [place] [address] Plumber And Tinner Gastroenterology 11/22/17 Dmitry Sanderson MD [address] [place] [address] Referring Physician Colon and Rectal Surgery 12/03/1805/06 Abbi Ventura MD [address] [place] [address] [address] [place] [address] Medical Oncologist/Hoisting Engineer Pile Driving Medical Oncology 12/03/18 Montse Thompson MD [address] [facility] [address] [place], [place] [address] Consulting Physician Gynecologic Oncology 12/03/18 Lela Hardy MD PhD [address] [place] [address] [address] [place] [address] Radiation Oncologist Radiation Oncology 12/23/18 Kianna Bunch MD PhD [address] [facility] [address] [place] [address] Surgeon Surgical Oncology 12/23/18 09/17/21 documented as of this encounter
--- OUTSIDE RECORDS SUMMARY | 2024-04-24 14:55 | XMS_ITS | Encounter Summary ---
Author Organization [facility] Healthcare Address [address] [place] [address] Care Team Providers Care Receiving Lead Name Role Phone Ravi Smith MD Primary Care Provider [phone] Aft, Kianna Machado MD PhD Unavailable [phone] Santiago Gilbert MD Unavailable [phone] Dmitry Sanderson MD Unavailable [phone] Abbi Ventura MD Unavailable Montse Thompson MD Unavailable [phone] Lela Hardy MD PhD Unavailable [phone] Aft, Kianna Machado MD PhD Unavailable [phone] Encounter Details Date Type Department Care Team (Late st Contact Info) Description 01/22/2019 1:15 PM CDT Treatment [facility] Radiation Oncology at [facility] [address] [place] [address] Social History Tobacco Use Types Packs/Day Years [...] file 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 Female 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 Gender Identity Not on file Sexual Orientation Not on file documented as of this encounter Plan of Treatment Not on file documented as of this encounter Visit Diagnoses Not on filedocumented in this encounter Care Teams Receiving Lead Relationship Specialty Start Date End Date Ravi Smith MD PCP - General 11/04/17 09/27/21 AfKianna simpson MD PhD [address] [place] [address] Surgeon Surgical Oncology 11/22/17 Santiago Gilbert MD [address] [place] [address] Parcel Carrier Gastroenterology 11/22/17 Dmitry Sanderson MD [address] [place] [address] Referring Physician Colon and Rectal Surgery 12/03/1805/06 Abbi Ventura MD [address] [place] [address] [address] [place] [address] Medical Oncologist/Coldfusion Medical Oncology 12/03/18 Montse Thompson MD [address] [facility] [address] [place], [place] [address] Consulting Physician Gynecologic Oncology 12/03/18 Lela Hardy MD PhD [address] [place] [address] [address] [place] [address] Radiation Oncologist Radiation Oncology 12/23/18 Kianna Bunch MD PhD [address] [facility] [address] [place] [address] Surgeon Surgical Oncology 12/23/18 09/17/21 documented as of this encounter
--- OUTSIDE RECORDS SUMMARY | 2024-04-24 14:55 | XMS_ITS | Encounter Summary ---
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 [address] [place], [place] [address] Medical Oncologist/Digital Media Director Medical Oncology 12/03/18 Montse Thompson MD 10 [facility] [address] [place] [address] Consulting Physician Gynecologic Oncology 12/03/18 Lela Hardy MD PhD 10 [facility] [address] [place] [address] Radiation Oncologist Radiation Oncology 12/23/18 Aft, Kianna Machado MD PhD 10 [facility] [address] [place], [place] [address] Surgeon Surgical Oncology 12/23/18 09/17/21 documented as of this encounter
--- OUTSIDE RECORDS SUMMARY | 2024-04-24 14:55 | XMS_ITS | Encounter Summary ---
Author Organization [facility] Healthcare Address [address] [place] [address] Care Team Providers Care Cleaner And Polisher Name Role Phone Ravi Smith MD Primary Care Provider [phone] Aft, Kianna Machado MD PhD Unavailable [phone] Santiago Gilbert MD Unavailable [phone] Dmitry Sanderson MD Unavailable [phone] Abbi Ventura MD Unavailable Montse Thompson MD Unavailable [phone] Lela Hardy MD PhD Unavailable [phone] Aft, Kianna Machado MD PhD Unavailable [phone] Encounter Details Date Type Department Care Team [...] on file 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 Gender Identity Not on file Sexual [...] on filedocumented in this encounter Care Teams Cleaner And Polisher Relationship Specialty Start Date End Date Ravi Smith MD PCP - General 11/04/17 09/27/21 Aft, Kianna Machado MD PhD [address] [place] [address] Surgeon Surgical Oncology 11/22/17 Santiago Gilbert MD [address] [place] [address] Data Migration Lead Gastroenterology 11/22/17 Dmitry Sanderson MD [address] [place] [address] Referring Physician Colon and Rectal Surgery 12/03/1805/06 Abbi Ventura MD [address] [facility] [address] [place], [place] [address] Medical Oncologist/Dish Technician Medical Oncology 12/03/18 Montse Thompson MD [address] [facility] [address] [place], [place] [address] Consulting Physician Gynecologic Oncology 12/03/18 Lela Hardy MD PhD [address] [place] [address] [address] [place], [place] [address] Radiation Oncologist Radiation Oncology 12/23/18 Aft, Kianna Machado MD PhD [address] [place] [address] [address] [place], [place] [address] Surgeon Surgical Oncology 12/23/18 09/17/21 documented as of this encounter
--- OUTSIDE RECORDS SUMMARY | 2024-04-24 14:55 | XMS_ITS | Encounter Summary ---
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 Female 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 Gender Identity Not on file Sexual Orientation [...] filedocumented in this encounter Care Teams Wood Mechanist Relationship Specialty Start Date End Date Ravi Smith MD PCP - General 11/04/17 09/27/21 Aft, Kianna Machado MD PhD [address] [place] [address] Surgeon Surgical Oncology 11/22/17 Santiago Gilbert MD [address] [place] [address] Boiler House Operator Gastroenterology 11/22/17 Dmitry Sanderson MD [address] [place] [address] Referring Physician Colon and Rectal Surgery 12/03/1805/06 Abbi Ventura MD [address] [facility] [address] [place], [place] [address] Medical Oncologist/Airplane Flight Attendant Medical Oncology 12/03/18 Montse Thompson MD [address] [facility] [address] [place] [address] Consulting Physician Gynecologic Oncology 12/03/18 Lela Hardy MD PhD [address] [facility] [address] [place] [address] Radiation Oncologist Radiation Oncology 12/23/18 Aft, Kianna Machado MD PhD [address] [facility] [address] [place], [place] [address] Surgeon Surgical Oncology 12/23/18 09/17/21 documented as of this encounter
--- OUTSIDE RECORDS SUMMARY | 2024-04-24 14:55 | XMS_ITS | Encounter Summary ---
Author Organization [facility] Healthcare Address [address] [place] [address] Care Team Providers Care Float Operator Name Role Phone Ravi Smith MD Primary Care Provider [phone] Aft, Kianna Machado MD PhD Unavailable [phone] Santiago Gilbert MD Unavailable [phone] Dmitry Sanderson MD Unavailable [phone] Abbi Ventura MD Unavailable Montse Thompson MD Unavailable Lela Hardy MD PhD Unavailable Aft, Kianna Machado MD PhD Unavailable Reason for Visit * Reason Comments OTV Encounter Details Date Type Department Care Team (Late st Contact Info) Description 01/21/2019 OTV [facility] Radiation Oncology at [facility] [address] [place] [address] Lela Hardy MD PhD [address] [facility] [address] [place] [address] Malignant neoplasm of upper-inner quadrant of left [...] on file Legal 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 Caster Helper Department of Radiation Oncology documented in this encounter Plan of Treatment Not on file documented as of this encounter Visit Diagnoses Diagnosis Malignant neoplasm of upper-inner quadrant of left breast in female, estrogen receptor negative (HCC)- Primary documented in this encounter Care Teams Float Operator Relationship Specialty Start Date End Date Ravi Smith MD PCP - General 11/04/17 09/27/21 Aft, Kianna Machado MD PhD [address] [place] [address] Surgeon Surgical Oncology 11/22/17 Santiago Gilbert MD [address] [place] [address] Hand Stemmer Gastroenterology 11/22/17 Dmitry Sanderson MD [address] [place], [place] [address] Referring Physician Colon and Rectal Surgery 12/03/1805/06 Abbi Ventura MD [address] [facility] [address] [place] [address] Medical Oncologist/Customer Advisor Specialist Medical Oncology 12/03/18 Montse Thompson MD [address] [facility] [address] [place], [place] [address] Consulting Physician Gynecologic Oncology 12/03/18 Lela Hardy MD PhD [address] [facility] [address] [place] [address] Radiation Oncologist Radiation Oncology 12/23/18 Aft, Kianna Machado MD PhD [address] [facility] [address] [place], [place] [address] Surgeon Surgical Oncology 12/23/18 09/17/21 documented as of this encounter
--- OUTSIDE RECORDS SUMMARY | 2024-04-24 14:55 | XMS_ITS | Encounter Summary ---
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 Gender Identity Not on file Sexual [...] PM CDT) Course Name C1 L BRS [place] 2018 ARIA Course Plan Date 12/26/2018 4:45 [...] on filedocumented in this encounter Care Teams Cost Manager Relationship Specialty Start Date End Date Ravi Smith MD PCP - General 11/04/17 09/27/21 Aft, Kianna Machado MD PhD [address] [place] [address] Surgeon Surgical Oncology 11/22/17 Santiago Gilbert MD [address] [place] [address] Mechanic Field Service Gastroenterology 11/22/17 Dmitry Sanderson MD [address] [place] [address] Referring Physician Colon and Rectal Surgery 12/03/1805/06 Abbi Ventura MD [address] [place] [address] [address] [place], [place] [id number] Medical Oncologist/Unclaimed Property Manager Medical Oncology 12/03/18 Montse Thompson MD [address] [facility] [address] [place], [place] [address] Consulting Physician Gynecologic Oncology 12/03/18 Lela Hardy MD PhD [address] [place] [address] [address] [place], [place] [address] Radiation Oncologist Radiation Oncology 12/23/18 Aft, Kianna Machado MD PhD [address] [place] [address] [address] [place], [place] [address] Surgeon Surgical Oncology 12/23/18 09/17/21 documented as of this encounter
--- OUTSIDE RECORDS SUMMARY | 2024-04-24 14:55 | XMS_ITS | Encounter Summary ---
Author Organization [facility] Healthcare Address [address] [place] [address] Care Team Providers Care Nursing Professor Name Role Phone Ravi Smith MD Primary Care Provider [phone] Aft, Kianna Machado MD PhD Unavailable [phone] Santiago Gilbert MD Unavailable [phone] Dmitry Sanderson MD Unavailable [phone] Abbi Ventura MD Unavailable Montse Thompson MD Unavailable [phone] Lela Hardy MD PhD Unavailable [phone] Aft, Kianna Machado MD PhD Unavailable [phone] Encounter Details Date Type Department Care Team (Late st Contact Info) Description 01/16/2019 2:00 PM CDT Treatment [facility] Radiation Oncology at [facility] [address] [place] [address] Social History Tobacco Use Types Packs/Day Years [...] file 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 Gender Identity Not on file Sexual Orientation Not on file documented as of this encounter Plan of Treatment Not on file documented as of this encounter Visit Diagnoses Not on filedocumented in this encounter Care Teams Nursing Professor Relationship Specialty Start Date End Date Ravi Smith MD PCP - General 11/04/17 09/27/21 AfKianna simpson MD PhD [address] [place] [address] Surgeon Surgical Oncology 11/22/17 Santiago Gilbert MD [address] [place] [address] Boat Driver Gastroenterology 11/22/17 Dmitry Sanderson MD [address] [place] [address] Referring Physician Colon and Rectal Surgery 12/03/1805/06 Abbi Ventura MD [address] [place] [address] [address] [place] [address] Medical Oncologist/Venetian Blind Cleaner Medical Oncology 12/03/18 Montse Thompson MD [address] [facility] [address] [place], [place] [address] Consulting Physician Gynecologic Oncology 12/03/18 Lela Hardy MD PhD [address] [place] [address] [address] [place] [address] Radiation Oncologist Radiation Oncology 12/23/18 Kianna Bunch MD PhD [address] [facility] [address] [place] [address] Surgeon Surgical Oncology 12/23/18 09/17/21 documented as of this encounter
--- OUTSIDE RECORDS SUMMARY | 2024-04-24 14:55 | XMS_ITS | Encounter Summary ---
Author Organization [facility] Healthcare Address [address] [place] [address] Care Team Providers Care Baking Powder Mixer Name Role Phone Ravi Smith MD Primary Care Provider [phone] Aft, Kianna Machado MD PhD Unavailable [phone] Santiago Gilbert MD Unavailable Dmitry Sanderson MD Unavailable [phone] Abbi Ventura MD Unavailable Montse Thompson MD Unavailable [phone] Lela Hardy MD PhD Unavailable [phone] Aft, Kianna Machado MD PhD Unavailable [phone] Encounter Details Date Type Department Care Team (Late st Contact Info) Description 01/14/2019 2:15 PM CDT Treatment [facility] Radiation Oncology at [facility] [address] [place] [address] Malignant neoplasm of upper-inner quadrant of left [...] file 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 Gender Identity Not on file Sexual [...] Primary documented in this encounter Care Teams Baking Powder Mixer Relationship Specialty Start Date End Date Ravi Smith MD PCP - General 11/04/17 09/27/21 Aft, Kianna Machado MD PhD [address] [place] [address] Surgeon Surgical Oncology 11/22/17 Santiago Gilbert MD [address] [place] [address] Nurse Practitioner Home Assessments Gastroenterology 11/22/17 Dmitry Sanderson MD [address] [place] [address] Referring Physician Colon and Rectal Surgery 12/03/1805/06 Abbi Ventura MD [address] [place] [address] [address] [place] [address] Medical Oncologist/Inventory Representative Medical Oncology 12/03/18 Montse Thompson MD [address] [facility] [address] [place], [place] [address] Consulting Physician Gynecologic Oncology 12/03/18 Lela Hardy MD PhD [address] [facility] [address] [place], [place] [address] Radiation Oncologist Radiation Oncology 12/23/18 Aft, Kianna Machado MD PhD [address] [facility] [address] [place], [place] [address] Surgeon Surgical Oncology 12/23/18 09/17/21 documented as of this encounter
--- OUTSIDE RECORDS SUMMARY | 2024-04-24 14:55 | XMS_ITS | Encounter Summary ---
Author Organization 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 Gender Identity Not on file Sexual [...] PM CDT) Course Name C1 L BRS [place] 2018 ARIA Course Plan Date 12/26/2018 4:45 [...] on filedocumented in this encounter Care Teams Mathematician Relationship Specialty Start Date End Date Ravi Smith MD PCP - General 11/04/17 09/27/21 Aft, Kianna Machado MD PhD [address] [place] [address] Surgeon Surgical Oncology 11/22/17 Santiago Gilbert MD [address] [place] [address] Full Stack Net Developer Gastroenterology 11/22/17 Dmitry Sanderson MD [address] [place] [address] Referring Physician Colon and Rectal Surgery 12/03/1805/06 Abbi Ventura MD [address] [facility] [address] [place], [place] [address] Medical Oncologist/Investigation Division Captain Medical Oncology 12/03/18 Montse Thompson MD [address] [facility] [address] [place], [place] [address] Consulting Physician Gynecologic Oncology 12/03/18 Lela Hardy MD PhD [address] [place] [address] [address] [place] [address] Radiation Oncologist Radiation Oncology 12/23/18 Aft, Kianna Machado MD PhD [address] [facility] [address] [place], [place] [address] Surgeon Surgical Oncology 12/23/18 09/17/21 documented as of this encounter
--- OUTSIDE RECORDS SUMMARY | 2024-04-24 14:55 | XMS_ITS | Encounter Summary ---
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 [address] [place], [place] [address] Medical Oncologist/Elementary School Librarian Medical Oncology 12/03/18 Montse Thompson MD [address] [facility] [address] [place], [place] [address] Consulting Physician Gynecologic Oncology 12/03/18 Lela Hardy MD PhD [address] [place] [address] [address] [place], [place] [address] Radiation Oncologist Radiation Oncology 12/23/18 Aft, Kianna Machado MD PhD [address] [place] [address] [address] [place], [place] [address] Surgeon Surgical Oncology 12/23/18 09/17/21 documented as of this encounter
--- OUTSIDE RECORDS SUMMARY | 2024-04-24 14:55 | XMS_ITS | Encounter Summary ---
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 Gender Identity Not on file [...] PM CDT) Course Name C1 L BRS [place] 2018 ARIA Course Plan Date 12/26/2018 4:45 [...] filedocumented in this encounter Care Teams Project Management Director Relationship Specialty Start Date End Date Ravi Smith MD PCP - General 11/04/17 09/27/21 Aft, Kianna Machado MD PhD [address] [place] [address] Surgeon Surgical Oncology 11/22/17 Santiago Gilbert MD [address] [place] [address] Decorating Kiln Operator Gastroenterology 11/22/17 Dmitry Sanderson MD [address] [place] [address] Referring Physician Colon and Rectal Surgery 12/03/1805/06 Abbi Ventura MD [address] [facility] [address] [place], [place] [address] Medical Oncologist/Hogshead Builder Medical Oncology 12/03/18 Montse Thompson MD [address] [facility] [address] [place], [place] [address] Consulting Physician Gynecologic Oncology 12/03/18 Lela Hardy MD PhD [address] [place] [address] [address] [place] [address] Radiation Oncologist Radiation Oncology 12/23/18 Aft, Kianna Machado MD PhD [address] [facility] [address] [place], [place] [address] Surgeon Surgical Oncology 12/23/18 09/17/21 documented as of this encounter
--- OUTSIDE RECORDS SUMMARY | 2024-04-24 14:55 | XMS_ITS | Encounter Summary ---
Author Organization [facility] Healthcare Address [address] [place] [address] Care Team Providers Care Mine Inspector Name Role Phone Ravi Smith MD Primary Care Provider [phone] Aft, Kianna Machado MD PhD Unavailable [phone] Santiago Gilbert MD Unavailable [phone] Dmitry Sanderson MD Unavailable [phone] Abbi Ventura MD Unavailable Montse Thompson MD Unavailable [phone] Lela Hardy MD PhD Unavailable [phone] Aft, Kianna Machado MD PhD Unavailable [phone] Encounter Details Date Type Department Care Team (Late st Contact Info) Description 01/13/2019 9:45 AM CDT Treatment [facility] Radiation Oncology at [facility] [address] [place] [address] Social History Tobacco Use Types Packs/Day Years [...] on file 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 Gender Identity Not on file Sexual Orientation Not on file documented as of this encounter Plan of Treatment Not on file documented as of this encounter Visit Diagnoses Not on filedocumented in this encounter Care Teams Mine Inspector Relationship Specialty Start Date End Date Ravi Smith MD PCP - General 11/04/17 09/27/21 AfKianna simpson MD PhD [address] [place] [address] Surgeon Surgical Oncology 11/22/17 Santiago Gilbert MD [address] [place] [address] Drafting Clerk Gastroenterology 11/22/17 Dmitry Sanderson MD [address] [place] [address] Referring Physician Colon and Rectal Surgery 12/03/1805/06 Abbi Ventura MD [address] [place] [address] [address] [place] [address] Medical Oncologist/Supervisor Body Assembly Medical Oncology 12/03/18 Montse Thompson MD [address] [facility] [address] [place], [place] [address] Consulting Physician Gynecologic Oncology 12/03/18 Lela Hardy MD PhD [address] [place] [address] [address] [place] [address] Radiation Oncologist Radiation Oncology 12/23/18 Kianna Bunch MD PhD [address] [facility] [address] [place] [address] Surgeon Surgical Oncology 12/23/18 09/17/21 documented as of this encounter
--- OUTSIDE RECORDS SUMMARY | 2024-04-24 14:55 | XMS_ITS | Encounter Summary ---
Author Organization [facility] Healthcare Address [address] [place] [address] Care Team Providers Care Crusher Assembler Name Role Phone Ravi Smith MD Primary Care Provider [phone] Aft, Kianna Machado MD PhD Unavailable [phone] Santiago Gilbert MD Unavailable [phone] Dmitry Sanderson MD Unavailable [phone] Abbi Ventura MD Unavailable Montse Thompson MD Unavailable [phone] Lela Hardy MD PhD Unavailable [phone] Aft, Kianna Machado MD PhD Unavailable [phone] Encounter Details Date Type Department Care Team (Late st Contact Info) Description 01/20/2019 1:[address] 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 Gender Identity Not on file Sexual Orientation Not on file documented as of this encounter Plan of Treatment Not on file documented as of this encounter Visit Diagnoses Not on filedocumented in this encounter Care Teams Crusher Assembler Relationship Specialty Start Date End Date Ravi Smith MD PCP - General 11/04/17 09/27/21 AfKianna simpson MD PhD [address] [place] [address] Surgeon Surgical Oncology 11/22/17 Santiago Gilbert MD [address] [place] [address] Nuclear Medicine Officer Gastroenterology 11/22/17 Dmitry Sanderson MD [address] [place] [address] Referring Physician Colon and Rectal Surgery 12/03/1805/06 Abbi Ventura MD [address] [place] [address] [address] [place] [address] Medical Oncologist/Head Of Sales Medical Oncology 12/03/18 Montse Thompson MD [address] [facility] [address] [place], [place] [address] Consulting Physician Gynecologic Oncology 12/03/18 Lela Hardy MD PhD [address] [place] [address] [address] [place] [address] Radiation Oncologist Radiation Oncology 12/23/18 Kianna Bunch MD PhD [address] [facility] [address] [place] [address] Surgeon Surgical Oncology 12/23/18 09/17/21 documented as of this encounter
--- OUTSIDE RECORDS SUMMARY | 2024-04-24 14:55 | XMS_ITS | Encounter Summary ---
Author Organization [facility] Healthcare Address [address] [place] [address] Care Team Providers Care Instant Powder Supervisor Name Role Phone Ravi Smith MD Primary Care Provider [phone] Aft, Kianna Machado MD PhD Unavailable [phone] Santiago Gilbert MD Unavailable [phone] Dmitry Sanderson MD Unavailable [phone] Abbi Ventura MD Unavailable Montse Thompson MD Unavailable [phone] Lela Hardy MD PhD Unavailable [phone] Aft, Kianna Machado MD PhD Unavailable [phone] Encounter Details Date Type Department Care Team (Late st Contact Info) Description 01/23/2019 1:15 PM CDT Treatment [facility] Radiation Oncology at [facility] [address] [place] [address] Social History Tobacco Use Types Packs/Day Years [...] on file 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 Gender Identity Not on file Sexual Orientation Not on file documented as of this encounter Plan of Treatment Not on file documented as of this encounter Visit Diagnoses Not on filedocumented in this encounter Care Teams Instant Powder Supervisor Relationship Specialty Start Date End Date Ravi Smith MD PCP - General 11/04/17 09/27/21 AfKianna simpson MD PhD [address] [place] [address] Surgeon Surgical Oncology 11/22/17 Santiago Gilbert MD [address] [place] [address] Public Information Specialist Gastroenterology 11/22/17 Dmitry Sanderson MD [address] [place] [address] Referring Physician Colon and Rectal Surgery 12/03/1805/06 Abbi Ventura MD [address] [place] [address] [address] [place] [address] Medical Oncologist/Appraiser Irrigation Tax Medical Oncology 12/03/18 Montse Thompson MD [address] [facility] [address] [place], [place] [address] Consulting Physician Gynecologic Oncology 12/03/18 Lela Hardy MD PhD [address] [place] [address] [address] [place] [address] Radiation Oncologist Radiation Oncology 12/23/18 Kianna Bunch MD PhD [address] [facility] [address] [place] [address] Surgeon Surgical Oncology 12/23/18 09/17/21 documented as of this encounter
--- OUTSIDE RECORDS SUMMARY | 2024-04-24 14:55 | XMS_ITS | Encounter Summary ---
Author Organization [facility] Healthcare Address [address] [place] [address] Care Team Providers Care Technical Training Coordinator Name Role Phone Ravi Smith MD Primary Care Provider [phone] Aft, Kianna Machado MD PhD Unavailable [phone] Santiago Gilbert MD Unavailable [phone] Dmitry Sanderson MD Unavailable [phone] Abbi Ventura MD Unavailable Montse Thompson MD Unavailable [phone] Lela Hardy MD PhD Unavailable [phone] Aft, Kianna Machado MD PhD Unavailable [phone] Encounter Details Date Type Department Care Team (Late st Contact Info) Description 01/26/2019 1:00 PM CDT Treatment [facility] Radiation Oncology at [facility] [address] [place] [address] Social History Tobacco Use Types Packs/Day Years [...] file 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 Gender Identity Not on file Sexual Orientation Not on file documented as of this encounter Plan of Treatment Not on file documented as of this encounter Visit Diagnoses Not on filedocumented in this encounter Care Teams Technical Training Coordinator Relationship Specialty Start Date End Date Ravi Smith MD PCP - General 11/04/17 09/27/21 AfKianna simpson MD PhD [address] [place] [address] Surgeon Surgical Oncology 11/22/17 Santiago Gilbert MD [address] [place] [address] Food Tray Assembler Gastroenterology 11/22/17 Dmitry Sanderson MD [address] [place] [address] Referring Physician Colon and Rectal Surgery 12/03/1805/06 Abbi Ventura MD [address] [place] [address] [address] [place] [address] Medical Oncologist/Learning Facilitator Medical Oncology 12/03/18 Montse Thompson MD [address] [facility] [address] [place], [place] [address] Consulting Physician Gynecologic Oncology 12/03/18 Lela Hardy MD PhD [address] [place] [address] [address] [place] [address] Radiation Oncologist Radiation Oncology 12/23/18 Kianna Bunch MD PhD [address] [facility] [address] [place] [address] Surgeon Surgical Oncology 12/23/18 09/17/21 documented as of this encounter
--- OUTSIDE RECORDS SUMMARY | 2024-04-24 14:55 | XMS_ITS | Encounter Summary ---
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 Gender Identity Not on file Sexual [...] PM CDT) Course Name C1 L BRS [place] 2018 ARIA Course Plan Date 12/26/2018 4:45 [...] filedocumented in this encounter Care Teams Event Operations Manager Relationship Specialty Start Date End Date Ravi Smith MD PCP - General 11/04/17 09/27/21 Aft, Kianna Machado MD PhD [address] [place] [address] Surgeon Surgical Oncology 11/22/17 Santiago Gilbert MD [address] [place] [address] Civil Technician Gastroenterology 11/22/17 Dmitry Sanderson MD [address] [place] [address] Referring Physician Colon and Rectal Surgery 12/03/1805/06 Abbi Ventura MD [address] [place] [address] [address] [place], [place] [address] Medical Oncologist/Hardwood Finisher Medical Oncology 12/03/18 Montse Thompson MD [address] [facility] [address] [place], [place] [address] Consulting Physician Gynecologic Oncology 12/03/18 Lela Hardy MD PhD [address] [place] [address] [address] [place], [place] [address] Radiation Oncologist Radiation Oncology 12/23/18 Aft, Kianna Machado MD PhD [address] [place] [address] [address] [place], [place] [address] Surgeon Surgical Oncology 12/23/18 09/17/21 documented as of this encounter
--- OUTSIDE RECORDS SUMMARY | 2024-04-24 14:55 | XMS_ITS | Encounter Summary ---
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 Female 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 Gender Identity Not on file Sexual Orientation Not on file documented as of this encounter Plan of Treatment Not on file documented as of this encounter Procedures Procedure Name Priority Date/Time Associated Diagnosis Comments RAD ONC ARIA SESSION SUMMARY 01/19/2019 1:53 PM CDT documented in this encounter Results * RAD ONC ARIA SESSION SUMMARY (01/19/2019 1:53 PM CDT) Course Name C1 L BRS [place] 2018 ARIA Course Plan Date 12/26/2018 4:45 [...] on filedocumented in this encounter Care Teams Division Leader Relationship Specialty Start Date End Date Ravi Smith MD PCP - General 11/04/17 09/27/21 Aft, Kianna Machado MD PhD [address] [place] [address] Surgeon Surgical Oncology 11/22/17 Santiago Gilbert MD [address] [place] [address] Electrotype Finisher Gastroenterology 11/22/17 Dmitry Sanderson MD [address] [place] [address] Referring Physician Colon and Rectal Surgery 12/03/1805/06 Abbi Ventura MD [address] [place] [address] [address] [place], [place] [id number] Medical Oncologist/Broodmare Barn Groom Medical Oncology 12/03/18 Montse Thompson MD 10 [facility] [address] [place], [place] [address] Consulting Physician Gynecologic Oncology 12/03/18 Lela Hardy MD PhD [address] [place] [address] [address] [place], [place] [address] Radiation Oncologist Radiation Oncology 12/23/18 Aft, Kianna Machado MD PhD [address] [place] [address] [address] [place], [place] [address] Surgeon Surgical Oncology 12/23/18 09/17/21 documented as of this encounter
--- OUTSIDE RECORDS SUMMARY | 2024-04-24 14:55 | XMS_ITS | Encounter Summary ---
Author Organization [facility] Healthcare Address [address] [place] [address] Care Team Providers Care New Home Sales Consultant Name Role Phone Ravi Smith MD Primary Care Provider [phone] Aft, Kianna Machado MD PhD Unavailable [phone] Santiago Gilbert MD Unavailable [phone] Dmitry Sanderson MD Unavailable [phone] Abbi Ventura MD Unavailable Montse Thompson MD Unavailable Lela Hardy MD PhD Unavailable [phone] Aft, Kianna Machado MD PhD Unavailable [phone] Reason for Visit * Reason Comments OTV Encounter Details Date Type Department Care Team (Late st Contact Info) Description 01/14/2019 OTV [facility] Radiation Oncology at [facility] Cancer [facility] [address] [place] [address] Lela Hardy MD PhD [address] [facility] [address] [place] [address] Malignant neoplasm of upper-inner quadrant of left [...] file Legal Sex Female 1:06 AM 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 Gender Identity Not on file Sexual [...] Stage IIA (pT2, pN0(sn), cM0, G3, ER-, MD-, HER2-) - Signed by Roger Dorsey MD on 12/23/2018 - Clinical: Stage IIB (cT2, cN0, cM0, G3, ER-, MD-, HER2-) - Signed by Lela Hardy MD [...] Primary documented in this encounter Care Teams New Home Sales Consultant Relationship Specialty Start Date End Date Ravi Smith MD PCP - General 11/04/17 09/27/21 Aft, Kianna Machado MD PhD [address] [place] [address] Surgeon Surgical Oncology 11/22/17 Santiago Gilbert MD [address] [place] [address] Electrical Project Manager Gastroenterology 11/22/17 Dmitry Sanderson MD [address] [place] [address] Referring Physician Colon and Rectal Surgery 12/03/1805/06 Abbi Ventura MD [facility] [address] [place] [address] Medical Oncologist/Can Bander Operator Medical Oncology 12/03/18 Montse Thompson MD [address] [place] [address] Consulting Physician Gynecologic Oncology 12/03/18 Lela Hardy MD PhD [address] [place] [address] Radiation Oncologist Radiation Oncology 12/23/18 Aft, Kianna Machado MD PhD [address] [place] [address] Surgeon Surgical Oncology 12/23/18 09/17/21 documented as of this encounter
--- OUTSIDE RECORDS SUMMARY | 2024-04-24 14:56 | XMS_ITS | Encounter Summary ---
Author Organization [facility] Address [address] [facility] [address] [place] [address] Phone Care Team Providers Care Ward Nurse Name Role Phone Hugo Smith MD Primary Care Provider [phone] Aft, Tony Machado MD PhD Unavailable [phone] Santiago Gilbert MD Unavailable [phone] Reason for Visit * Reason Comments Follow-up Encounter Details Date Type Department Care Team (Late st Contact Info) Description 11/24/2018 2:00 PM CDT Office Visit [facility] Obstetrics and Gynecology [address] [facility] 13th [place] [address] [place] [address] Montse Thompson MD [address] [facility] [phone] [place] [address] BRCA2 gene mutation positive in [...] on file Legal 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 ALLERGIES: Tetanus and oxaliplatin. MOLDER HISTORY: She is a G4, P2-1-1-2. Her [...] ELECTRONICALLY SIGNED - 11/25/2018 06:11 AM Montse Thmopson M.D. Professor, Department of Obstetrics and Gynecology Division of Gynecologic Oncology [facility] PHT/sv/#[id number] cc: BIRDIE LEBLANC M.D. / TONY GAY [...] smear documented in this encounter Care Teams Ward Nurse Relationship Specialty Start Date End Date Hugo Smith MD PCP - General 11/04/17 09/27/21 Aft, Tony Machado MD PhD [address] [place] [address] Surgeon Surgical Oncology 11/22/17 Santiago Gilbert MD [address] [place] [address] Library Media Assistant Gastroenterology 11/22/17 documented as of this encounter
--- OUTSIDE RECORDS SUMMARY | 2024-04-24 14:56 | XMS_ITS | Encounter Summary ---
Author Organization [facility] Healthcare Address [address] [place] [address] Care Team Providers Care Chucker Name Role Phone Hugo Smith MD Primary Care Provider [phone] Julio C, Tony Machado MD PhD Unavailable [phone] Santiago Gilbert MD Unavailable [phone] Encounter Details Date Type Department Care Team (Latest Contact Info) Description 11/11/2018 12:56 PM CDT - 11/11/2018 6:18 PM CDT Hospital Encounter [facility] Operating [facility] [address] [place] [address] Julio C, Tony Machado MD PhD [address] [place] [address] History of breast cancer Discharge Disposition: Discharge [...] on file Legal 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 Female 1: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 Gender Identity Not on file Sexual Orientation [...] ANXIETY DISORDER, UNSPECIFIED Anxiety state, unspecified Other fdc (current) drug therapy - OTHER KAYAKING INSTRUCTOR (CURRENT) DRUG THERAPY terminal system operator current use of inhaled steroid - KAYAKING INSTRUCTOR (CURRENT) USE OF INHALED STEROIDS terminal system operator current use of oral hypoglycemic drug - NURSING HOME (CURRENT) USE OF ORAL HYPOGLYCEMIC DRUGS terminal system operator current use of anticoagulant - NURSING HOME (CURRENT) USE OF ANTICOAGULANTS Personal history of [...] tablet by mouth daily with dinner 1 acetaminophen (TYLENOL) 500 mg tablet Take 1,000 mg by mouth every 6 (six) hours as needed for pain 1 albuterol HFA (PROVENTIL HFA,VENTOLIN HFA,PROAIR HFA) 90 mcg/actuation inhalerIndicatio ns:Acute Asthma Attack Inhale 2 puffs every 6 (six) hours as needed for wheezing 0 oxyCODONE (ROXICODONE) 5 mg immediate release tabletIndication s:Pain Take 1 tablet (5 mg total) by mouth every 4 (four) hours as needed for pain 8 tablet 11/11/2018 9 documented as of this encounter Ordered Prescriptions [...] Obstetrics and Gynecology Division of Gynecologic Oncology [facility] PHT/lw/#[id number] cc: BIRDIE LEBLANC M.D. / TONY BUNCH [...] SURGICAL PATHOLOGY Tony Bunch MD PhD 11/11/2018 2411 Complications: None Condition on Discharge from the [...] 2 days of your surgery, please call [phone] and ask for your surgeon's office Dr. [...] mastectomy) 11/11/2018 4:54 PM CDT Narrative PATHOLOGY [facility] - 11/24/2018 10:51 AM CDT EPIC results best viewed via link to PDF [facility] Galilea Muñiz Laboratory [place] [address] SURGICAL PATHOLOGY REPORT FINAL Patient Name: ?? ALEAH GERBER Gender: ??F : ??1955 (Age: 63) Address: ??[address] [place] [address] Hospital #: ??[id number] Taken:11/11/2018 Received:11/11/2018 Reported: 11/24/2018 Patient Type: [facility] SDS ?? Service: Surgery Location: [facility] Physician(s): ??Hortencia Warren M.D. Michael Mulligan, M.D. [...] [facility] as part of an ongoing quality measurement specialist program and in compliance with federally [...] determined by the Surgical Pathology Department of [facility]. ??It has not been cleared or approved by the U. S. Food and Drug Administration. IMAGES AND SCANNED DOCUMENTS, IF INCLUDED, ONLY VIEWABLE IN PDF VERSION OF REPORT us Tony Bunch MD PhD LAB PATHOLOGY ORDERABLES F inal Result PATHOLOGY [facility] 3rd Floor [place], [place] [phone] * POCT glucose (11/11/2018 1:25 PM CDT) Glucose, POC 138 70 - 199 mg/dL [facility] Blood specimen (specimen) 11/11/2018 1:25 PM CDT 11/11/2018 1:25 PM CDT oTny Bunch MD PhD LAB POCT ORDERABLES - ROSEMARY CE Final Result Performing Organization Address [facility]/ZIP Co de Phone Number [facility] One [facility] Department [place] [address] documented in this encounter Visit Diagnoses Diagnosis [...] 08/29/2018 09/22/2018 al & mag hydroxide simethicone-diphenhyd oskgrp-rpkugdrhi-zbhx atin (MAGIC MOUTHWASH) suspension 0-9-8-1Indications:Ch emotherapy-Induced Mucositis Swish and swallow 10 mL [...] 11/11/2018 documented in this encounter Care Teams Chucker Relationship Specialty Start Date End Date Hugo Smith MD PCP - General 11/04/17 09/27/21 Aft, Tony Machado MD PhD [address] [place] [address] Surgeon Surgical Oncology 11/22/17 Santiago Gilbert MD [address] [place] [address] Axminster Weaver Gastroenterology 11/22/17 documented as of this encounter
--- OUTSIDE RECORDS SUMMARY | 2024-04-24 14:56 | XMS_ITS | Encounter Summary ---
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 ALEAH AGUILAR Gender: ??F : ??1955 (Age: 63) Address: ??[address] [place] [address] Hospital #: ??[id number] Taken:10/27/2018 Received:10/27/2018 Reported: 10/30/2018 Patient Type: [facility] Ref Lab ?? Service: FINISHING AND SHIPPING SUPERVISOR Location: [facility] Physician(s): ??Montse Thompson M.D. Diagnosis: A. ??Uterus, [...] Extremely scant fragments of unremarkable endocervical epithelium [facility]/10/29/2018 14:18 By this signature, I attest [...] determined by the Surgical Pathology Department at [facility] as part of an ongoing quality control head program and in compliance with federally mandated [...] VIEWABLE IN PDF VERSION OF REPORT us Premia Ac Thompson MD LAB PATHOLOGY ORDERABLES Final Result PATHOLOGY [facility] 3rd Floor [place], [place] [phone] documented in this encounter Visit Diagnoses Diagnosis BRCA2 gene mutation positive in female Atypical glandular cells of undetermined significance (YRN) on cervical Pap smear documented in this encounter Care Teams Truck Assembler Relationship Specialty Start Date End Date Ravi Smith MD PCP - General 11/04/17 09/27/21 Aft, Kianna Machado MD PhD [address] [place] [address] Surgeon Surgical Oncology 11/22/17 Santiago Gilbert MD [address] [place] [address] District Agent Gastroenterology 11/22/17 documented as of this encounter
--- OUTSIDE RECORDS SUMMARY | 2024-04-24 14:56 | XMS_ITS | Encounter Summary ---
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) Procedures Cytology Montse Thompson MD Phone: tel: fax: Referral ID Status Reason Start Date Expiration Date Visits Re quested Visits Authorized [id number] Closed 10/20/2018 04/30/2020 1 1 Reason for Visit * OBGYN (Routine) - Closed Specialty Diagnoses / Procedures Referred By Vijaya simpson Referred To Contact Gynecologic Oncology Diagnoses hx breast ca discuss [facility] obstetrics gyn physician records in chart Procedures PRINCIPAL NETWORK ARCHITECT NEW AftTony MD PhD Phone: tel: fax: Montse Thompson MD [address] [facility] [phone] [place] [address] Phone: tel: fax: Referral ID Status Reason Start Date Expiration Date Visits Re quested Visits Authorized [id number] Closed 10/20/2018 04/30/2020 1 1 Encounter Details Date Type Department Care Team (Late st Contact Info) Description 10/20/2018 9:30 AM CDT Office Visit [facility] Obstetrics and Gynecology [address] [facility] 13th [place] [address] [place] [address] Montse Thompson MD [address] [facility] [phone] [place] [address] BRCA2 gene mutation positive in female (Primary [...] Obstetrics and Gynecology Division of Gynecologic Oncology [facility] PHT/lw/#[id number] cc: BIRDIE LEBLANC M.D. / TONY BUNCH [...] Abdomen and Pelvis LEEP (during clinic hours) PRINCIPAL NETWORK ARCHITECT Ultrasound x MRI Mammogram PET Initiate Survivoship Care Plan Surveillance Labs (CBC w/ Diff, CMP, Magnesium, CA125) Labwork: CA125 x documented in this encounter Plan of Treatment Not on file documented as of this encounter Results * Comprehensive metabolic panel (10/20/2018 1:11 PM CDT) Sodium 141 135 - 145 mmol/L [facility] Potassium, pl 4.7 3.3 - 4.9 mmol/L [facility] Chloride 105 97 - 110 mmol/L [facility] CO2 26 22 - 32 mmol/L [facility] Anion gap 10 2 - 15 mmol/L [facility] BUN 20 8 - 25 mg/dL [facility] Creatinine 1.06 0.60 - 1.10 mg/dL [facility] Glucose 115 70 - 199 mg/dL [facility] Comment: Interpretive Data Fasting glucose >/= 126 [...] Calcium 10.1 8.5 - 10.3 mg/dL [facility] Bilirubin, total 0.3 0.1 - 1.2 mg/dL [facility] Protein, pl 7.2 6.5 - 8.5 g/dL [facility] Albumin 4.4 3.5 - 5.0 g/dL [facility] Alk phos 83 40 - 130 Units/L [facility] ALT 16 7 - 45 Units/L [facility] AST 22 10 - 45 Units/L [facility] Blood specimen (specimen) 10/20/2018 1:11 PM CDT 10/20/2018 1:50 PM CDT Narrative [facility] - 10/20/2018 2:27 PM CDT us Montse Thompson MD LAB BLOOD ORDERABLES Fin al Result [facility] Department [place] [address] * (ABNORMAL) CBC with auto differential (10/20/2018 1:11 PM CDT) WBC 7.7 3.8 - 9.9 K/cumm [facility] Hgb 10.3(L) 11.9 - 15.5 g/dL [facility] Hct 32.2(L) 35.6 - 45.5 % [facility] Plt 173 150 - 400 K/cumm [facility] MPV 9.8 9.1 - 12.3 fL [facility] RBC 3.24(L) 3.90 - 5.20 M/cumm [facility] MCV 99.4(H) 81.3 - 96.4 fL [facility] MCH 31.8 27.1 - 33.3 pg [facility] MCHC 32.0(L) 32.3 - 35.7 g/dL [facility] RDW CV 13.0 11.1 - 14.9 % [facility] RDW SD 47.6 35.7 - 48.1 fL [facility] NRBC abs 0.00 0.00 - 0.01 K/cumm [facility] Blood specimen (specimen) 10/20/2018 1:11 PM CDT 10/20/2018 1:50 PM CDT Narrative [facility] - 10/20/2018 1:58 PM CDT [facility] Ac Thompson MD LAB BLOOD ORDERABLES Fin al Result [facility] Department [place] [address] * CA 125 (10/20/2018 1:11 PM CDT) CA 125 ag 12.3 0.0 - 35.0 units/mL [facility] Blood specimen (specimen) 10/20/2018 1:11 PM CDT 10/20/2018 1:50 PM CDT Narrative [facility] - 10/20/2018 2:27 PM CDT Montse Thompson MD LAB BLOOD ORDERABLES Fin al Result [facility] Department [place] [address] * (ABNORMAL) Cytology (10/20/2018 10:57 AM CDT) Fluid 10/20/2018 10:5 7 AM CDT 10/20/2018 12:08 PM CDT Narrative PATHOLOGY [facility] - 10/22/2018 1:29 PM CDT EPIC results best viewed via link to PDF [facility] Galilea Muñiz Laboratory [place] [address] CYTOPATHOLOGY REPORT FINAL WITH ADDENDUM Patient Name: ??ALEAH GERBER Gender: ??F : ??1955 (Age: 63) Address: ??[address] [place] [address] Hospital #: ??[id number] Service: ??Gynecology Location: ??[facility] Patient Type: ??[facility] Ancillary Taken: ??10/20/2018 Received: ??10/20/2018 [...] 68. ??This HPV test was performed at [facility] in [place], [place] utilizing the Gen-Probe Aptima assay. By this signature, I attest that the above diagnosis is based upon my personal examination of the slides(and/or other material indicated in the diagnosis). ?? Anastacio Ball DO ??Report Electronically Reviewed and Signed Out By ??Anastacio Ball DO ??10/24/2018 16:27:59 ? The HPV test was performed by [facility], [address] [place] [address]. Report Images and scanned documents, if included only viewable in PDF version The performance characteristics of some immunohistochemical stains, in-situ hybridization and fluorescence in-situ hybridization tests and immunophenotyping by flow cytometry cited in this report (if any) were determined by the Surgical Pathology Department at [facility] as part of an ongoing supplier quality [...] by the Surgical Pathology Department of [facility]. ??It has not been cleared or approved by the U. S. Food and Drug Administration. [facility] Ac Thompson MD LAB CYTOLOGY ORDERABLES Final Result PATHOLOGY [facility] 3rd Floor [place], [place] [phone] documented in this encounter Visit Diagnoses Diagnosis [...] 10/20/2018 documented in this encounter Care Teams Production Wood Craftsman Relationship Specialty Start Date End Date Hugo Smith MD PCP - General 11/04/17 09/27/21 Aft, Tony Machado MD PhD [address] [place], [place] [address] Surgeon Surgical Oncology 11/22/17 Santiago Gilbert MD [address] [place] [address] Financial Report Service Sales Agent Gastroenterology 11/22/17 documented as of this encounter
--- OUTSIDE RECORDS SUMMARY | 2024-04-24 14:56 | XMS_ITS | Encounter Summary ---
Author Organization [facility] Care Team Providers Care Caving Guide Name Role Phone Ravi Smith MD Primary Care Provider [phone] Kianna Bunch MD PhD Unavailable [phone] Santiago Gilbert MD Unavailable [phone] Encounter Details Date Type Department Care [...] on file Legal Sex Female 1:06 AM DRAFTER DETAIL Gender Identity Not on file Sexual Orientation Not on file documented as of this encounter Plan of Treatment Not on file documented as of this encounter Visit Diagnoses Not on filedocumented in this encounter Care Teams Caving Guide Relationship Specialty Start Date End Date Ravi Smith MD PCP - General 11/04/17 09/27/21 Kianna Bunch MD PhD [address] [place] [address] Surgeon Surgical Oncology 11/22/17 Santiago Gilbert MD [address] [place] [address] Care Mgr Gastroenterology 11/22/17 documented as of this encounter
--- OUTSIDE RECORDS SUMMARY | 2024-04-24 14:56 | XMS_ITS | Encounter Summary ---
Author Organization [facility] Address [address] [place] [address] Phone Care Team Providers Care Spring Upholsterer Name Role Phone Ravi Smith MD Primary Care Provider [phone] Aft, Kianna Machado MD PhD Unavailable [phone] Santiago Gilbert MD Unavailable [phone] Reason for Visit * Reason Comments Post-op Encounter Details Date Type Department Care Team (Late st Contact Info) Description 12/01/2018 3:20 PM CDT Office Visit [facility] Surgery [address] 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 Kianna Bunch M.D. registered nurse behavioral health RA/em documented in this encounter Plan of Treatment Not on file documented as of this encounter Visit Diagnoses Diagnosis Malignant neoplasm of upper-inner quadrant of left breast in female, estrogen receptor negative (HCC)- Primary documented in this encounter Care Teams Spring Upholsterer Relationship Specialty Start Date End Date Ravi Smith MD PCP - General 11/04/17 09/27/21 Kianna Bunch MD PhD [address] [place] [address] Surgeon Surgical Oncology 11/22/17 Santiago Gilbert MD [address] [place] [address] Comfort Filler Gastroenterology 11/22/17 documented as of this encounter
--- OUTSIDE RECORDS SUMMARY | 2024-04-24 14:56 | XMS_ITS | Encounter Summary ---
Author Organization [facility] Healthcare Address [address] [place] [address] Care Team Providers Care Pecan Gatherer Name Role Phone Hugo Smith MD Primary Care Provider [phone] Tony Bunch MD PhD Unavailable Santiago Gilbert MD Unavailable [phone] Encounter Details Date Type Department Care Team (Late st Contact Info) Description 11/11/2018 3:00 PM CDT - 11/11/2018 4:[address] [facility] Operating Room [facility] [address] [place] [address] Tony Bunch MD PhD [address] [place] [address] RE-EXCISION BREAST BIOPSY CAVITY Surgery Details Date/Time Status Location OR Service Patient Class Case Cl ass Case Type Trauma Case? 11/11/2018 3:00 PM Posted [facility] CAM OR POD 4 A Oncology Outpatient Elective Panel 1 Procedure LRB Anes Op Region Wound Class Comments RE-EXCISION BREAST BIOPSY CAVITY Left Monitor Anesthesia Care Breast Class I - Clean Surgeon Surgeon Role Service Panel Tony Bunch MD PhD Primary Oncology 1 Jennifer Overton MD Resident - Assisting Gener al Surgery 1 Case Notes AUTH INFO ENTERED INTO SOARIAN. 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 DIANE/linda/#[id number] cc: BIRDIE LEBLANC M.D. / TONY BUNCH [...] 2 days of your surgery, please call [phone] and ask for your surgeon's office Dr. [...] mastectomy) 11/11/2018 4:54 PM CDT Narrative PATHOLOGY [facility] - 11/24/2018 10:51 AM CDT EPIC results best viewed via link to PDF [facility] Galilea Muñiz Laboratory of Surgical Pathology [address] [place] [address] SURGICAL PATHOLOGY REPORT FINAL Patient Name: ?? ALEAH GERBER Gender: ??F : ??1955 (Age: 63) Address: ??[address] [place], [place] ??[address] [facility] #: ??[id number] Taken:11/11/2018 Received:11/11/2018 Reported: 11/24/2018 Patient Type: [facility] SDS ?? Service: Surgery Location: [facility] Physician(s): ??Hortencia Warren M.D. Michael Mulligan, M.D. [...] determined by the Surgical Pathology Department at [facility] as part of an ongoing senior quality assurance engineer program and in compliance with federally [...] determined by the Surgical Pathology Department of [facility]. ??It has not been cleared or approved by the U. S. Food and Drug Administration. IMAGES AND SCANNED DOCUMENTS, IF INCLUDED, ONLY VIEWABLE IN PDF VERSION OF REPORT us Tony Bunch MD PhD LAB PATHOLOGY ORDERABLES F inal Result PATHOLOGY [facility] 3rd Floor [place], [place] [phone] * POCT glucose (11/11/2018 1:25 PM CDT) Glucose, POC 138 70 - 199 mg/dL LEVAR [facility] Blood specimen (specimen) 11/11/2018 1:25 PM CDT 11/11/2018 1:25 PM CDT Tony Bunch MD PhD LAB POCT ORDERABLES - ROSEMARY CE Final Result LEVAR MICHELLE Madelyn [facility] Department [place] [address] documented in this encounter Visit Diagnoses Diagnosis [...] 08/29/2018 09/22/2018 al & mag hydroxide simethicone-diphenhyd bghlbo-pjbhaxvvo-zsjv atin (MAGIC MOUTHWASH) suspension 0-5-6-1Indications:Ch emotherapy-Induced Mucositis Swish and swallow 10 mL [...] 11/11/2018 documented in this encounter Care Teams Pecan Gatherer Relationship Specialty Start Date End Date Hugo Smith MD PCP - General 11/04/17 09/27/21 Aft, Tony Machado MD PhD [address] [place] [address] Surgeon Surgical Oncology 11/22/17 Snatiago Gilbert MD [address] [place] [address] Account Support Rep Gastroenterology 11/22/17 documented as of this encounter
--- OUTSIDE RECORDS SUMMARY | 2024-04-24 14:56 | XMS_ITS | Encounter Summary ---
Author Organization [facility] Address [address] [place] [address] Phone Care Team Providers Care Tool Or Die Drawing Checker Name Role Phone Ravi Smith MD Primary Care Provider [phone] Aft, Kianna Machado MD PhD Unavailable [phone] Santiago Gilbert MD Unavailable [phone] Reason for Referral * Diagnostic Imaging (Routine) - Closed Specialty Diagnoses / Procedures Referred By Contronny t Referred To Contact Diagnoses BRCA2 gene mutation positive in female Procedures US Transvaginal Montse Thompson MD Phone: tel: fax: [facility] (All Locations) Referral ID Status Reason Start Date Expiration Date Visits Re quested Visits Authorized [id number] Closed 11/20/2018 05/31/2020 1 1 Encounter Details Date Type Department Care Team (Late st Contact Info) Description 11/20/2018 Orders Only [facility] Obstetrics and Gynecology [facility] Advanced Medicine 13th [place] [address] [place] [id number] Evon Arreola, RN BRCA2 gene mutation positive [...] on file Legal Sex Female 1: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
--- OUTSIDE RECORDS SUMMARY | 2024-04-24 14:56 | XMS_ITS | Encounter Summary ---
Author Organization [facility] Address [address] [place] [address] Phone Care Team Providers Care Dredge Master Name Role Phone Ravi Smith MD Primary Care Provider [phone] Aft, Kianna Machado MD PhD Unavailable [phone] Santiago Gilbert MD Unavailable [phone] Reason for Visit * Reason Comments Chemotherapy * Episode Based Medications (Routine) - Closed Specialty Diagnoses / Procedures Referred By Contrnony t Referred To Contact Diagnoses Malignant neoplasm of upper-inner quadrant of left breast in female, estrogen receptor negative (HCC) Hypokalemia Hypomagnesemia Procedures IVF Abbi Ventura MD [address] [facility] [address] [place] [address] Phone: tel: fax: [facility] [address] [place] [address] Phone: tel: fax: Referral ID Status Reason Start Date Expiration Date Visits Re quested Visits Authorized [id number] Closed 03/14/2018 10/22/2018 99 99 Encounter Details Date Type Department Care Team (Late st Contact Info) Description 10/15/2018 11:00 AM CDT Infusion [facility] [address] [place] [phone] Hypomagnesemia (Primary Dx); Hypokalemia; Malignant neoplasm of [...] file Legal Sex Female 1:06 AM CONTROL 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
--- OUTSIDE RECORDS SUMMARY | 2024-04-24 14:56 | XMS_ITS | Encounter Summary ---
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
--- OUTSIDE RECORDS SUMMARY | 2024-04-24 14:56 | XMS_ITS | Encounter Summary ---
Author Organization [facility] Healthcare Address [address] [place] [address] Care Team Providers Care Inventory Control Specialist Name Role Phone Ravi Smith MD Primary Care Provider [phone] Aft, Kianna Machado MD PhD Unavailable [phone] Santiago Gilbert MD Unavailable [phone] Dmitry Sanderson MD Unavailable [phone] Abbi Ventura MD Unavailable Montse Thompson MD Unavailable [phone] Lela Hardy MD PhD Unavailable [phone] Aft, Kianna Machado MD PhD Unavailable [phone] Encounter Details Date Type Department Care Team [...] Legal 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 Gender Identity Not on file Sexual [...] PM CDT) Course Name C1 L BRS MI 2018 ARIA Course Plan Date 12/26/2018 4:45 [...] on filedocumented in this encounter Care Teams Inventory Control Specialist Relationship Specialty Start Date End Date Ravi Smith MD PCP - General 11/04/17 09/27/21 Aft, Kianna Machado MD PhD [address] [place] [address] Surgeon Surgical Oncology 11/22/17 Santiago Gilbert MD [address] [place] [address] Payroll Director Gastroenterology 11/22/17 Dmitry Sanderson MD [address] [place] [address] Referring Physician Colon and Rectal Surgery 12/03/1805/06 Abbi Ventura MD [address] [facility] [address] [place], [place] [id number] Medical Oncologist/Healthcare Recruiter Medical Oncology 12/03/18 Montse Thompson MD [address] [facility] [address] [place] [address] Consulting Physician Gynecologic Oncology 12/03/18 Lela Hardy MD PhD [address] [facility] [address] [place] [address] Radiation Oncologist Radiation Oncology 12/23/18 Aft, Kianna Machado MD PhD [address] [facility] [address] [place], [place] [address] Surgeon Surgical Oncology 12/23/18 09/17/21 documented as of this encounter
--- OUTSIDE RECORDS SUMMARY | 2024-04-24 14:56 | XMS_ITS | Encounter Summary ---
Author Organization [facility] Healthcare Address [address] [place] [address] Care Team Providers Care Surg Tech Name Role Phone Ravi Smith MD Primary Care Provider [phone] Aft, Kianna Machado MD PhD Unavailable [phone] Santiago Gilbert MD Unavailable [phone] Encounter Details Date Type Department Care Team (Late st Contact Info) Description 01/06/2019 11:59 PM CDT Anesthesia Event [facility] Operating Room [address] [place] [id number] Deonna Roldan, STRUCTURES TECHNICIAN [address] [facility] [phone] [place] [address] Anesthesia Record Procedure Summary Procedure Name Responsible [...] on file Legal 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 Pertinent negatives: CAD ; RI ; CABG ; valvular heart disease; valve [...] / Other + Diabetes mellitus (Dx'd in 1157104. AM DURK=942-037 mg/dl) - Diabetes type 2. Outpatient insulin [...] standards). Discussed with Rika in surgeon's office [id number]-- Surgeon's office to contact patient if repeat [...] Breast Needle Localization partial mastectomy (L), Biopsy [place] Lymph Node With Lymphoscintigraphy (L), Insertion Port [...] on filedocumented in this encounter Care Teams Surg Tech Relationship Specialty Start Date End Date Ravi Smith MD PCP - General 11/04/17 09/27/21 Aft, Kianna Machado MD PhD [address] [place] [address] Surgeon Surgical Oncology 11/22/17 Santiago Gilbert MD [address] [place] [address] Business Intelligence Etl Developer Gastroenterology 11/22/17 documented as of this encounter
--- OUTSIDE RECORDS SUMMARY | 2024-04-24 14:56 | XMS_ITS | Encounter Summary ---
Author Organization [facility] Address [address] [place] [address] Phone Care Team Providers Care Psychiatry Physician Name Role Phone Ravi Smith MD Primary Care Provider [phone] Aft, Kianna Machado MD PhD Unavailable [phone] Santiago Gilbert MD Unavailable [phone] Dmitry Sanderson MD Unavailable [phone] Abbi Ventura MD Unavailable Montse Thompson MD Unavailable [phone] Lela Hardy MD PhD Unavailable [phone] Aft, Kianna Machado MD PhD Unavailable [phone] Trena Obando MD Unavailable [phone] Dat Benito DO Primary Care Provider [phone] Encounter Details Date Type Department Care Team [...] on file 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 Gender Identity Not on file Sexual [...] COVID: Suspected 05/02/2023 05/02/2023 05/02/2023 3:37 PM MACHINED PARTS METAL SPRAYER documented as of this encounter Care Teams Psychiatry Physician Relationship Specialty Start Date End Date Ravi Smith MD PCP - General 11/04/17 09/27/21 Dat Benito DO [address] [place] [address] PCP - General Internal Medicine 09/28/21 Aft, Kianna Machado MD PhD [address] [place] [address] Surgeon Surgical Oncology 11/22/17 Santiago Gilbert MD [address] [place] [address] Rebeamer Gastroenterology 11/22/17 Dmitry Sanderson MD [address] [place] [address] Referring Physician Colon and Rectal Surgery 12/03/1805/06 Abbi Ventura MD [address] [facility] [address] [place] [address] Medical Oncologist/Nc Machinist Medical Oncology 12/03/18 Montse Thompson MD [address] [facility] [address] [place], [place] [address] Consulting Physician Gynecologic Oncology 12/03/18 Lela Hardy MD PhD [address] [place] [address] [address] [place] [address] Radiation Oncologist Radiation Oncology 12/23/18 AfKianna simpson MD PhD [address] [facility] [address] [place] [address] Surgeon Surgical Oncology 12/23/18 09/17/21 Trena Obando MD [address] [place], [place] [address] Consulting Physician Neurology 09/18/21 documented as of this encounter
--- OUTSIDE RECORDS SUMMARY | 2024-04-24 14:56 | XMS_ITS | Encounter Summary ---
Author Organization [facility] Healthcare Address [address] [place] [address] Care Team Providers Care Nail Artist Name Role Phone Ravi Smith MD Primary Care Provider [phone] Aft, Kianna Machado MD PhD Unavailable [phone] Santiago Gilbert MD Unavailable [phone] Encounter Details Date Type Department Care Team (Late st Contact Info) Description 11/11/2018 4:24 PM CDT Anesthesia Event [facility] Operating Room [facility] ([facility]) [address] [place] [address] Antony Linares MD [address] [place] [address] [place] [address] [place] [address] [phone] [place] [address] Anesthesia Record Procedure Summary Procedure Name Responsible [...] on file Legal Sex Female 1:06 AM PAIN MANAGEMENT PHYSICIAN Gender Identity Not on file Sexual Orientation Not on file documented as of this encounter OR Notes * Anesthesia Postprocedure Evaluation - Dolores Denson MD - 11/11/2018 5:50 PM CDT Patient: Aleah Gerber Procedure Summary Date: 11/11/18 Room / Location: [facility] CAM OR POD 4 ROOM A / [facility] CAM OR POD 4 Anesthesia Start: [...] Planning Preoperative Evaluation Record CPAP Clinic at [facility] ([facility]) Date: 10/20/18 Anesthesia Evaluation Procedure(s): RE-EXCISION [...] 05/28/18. Pertinent negatives: hypertension ; CAD ; AR ; CABG ; valvular heart disease; valve [...] status is STOP-Bang=5 suggesting HIGH RISK for VIOELTTE. The patient is at elevated risk for [...] surgeon's office. Please call the CPAP attending ([phone]) to revisit bleeding risk assessment, with any [...] acceptable. . Please call the CPAP attending ([phone]) to revisit bleeding risk assessment, with any [...] Breast Needle Localization partial mastectomy (L), Biopsy [place] Lymph Node With Lymphoscintigraphy (L), Insertion Port [...] Medication protocol when under care of a JAVA MANAGER Planned anesthesia: MAC Induction: Induction: intravenous. Postoperative Plan: Postoperative administration opioids intended. No postoperative mechanical ventilation intended. Patient's planned disposition post procedure is Outpatient. No trial extubation planned. Informed Consent: Discussed plan with JAVA MANAGER. Anesthesia plan and risks discussed with [...] mg documented in this encounter Care Teams Nail Artist Relationship Specialty Start Date End Date Ravi Smith MD PCP - General 11/04/17 09/27/21 Aft, Kianna Machado MD PhD [address] [place] [address] Surgeon Surgical Oncology 11/22/17 Santiago Gilbert MD [address] [place] [address] Construction Consultant Gastroenterology 11/22/17 documented as of this encounter
--- OUTSIDE RECORDS SUMMARY | 2024-04-24 14:56 | XMS_ITS | Encounter Summary ---
Author Organization [facility] Healthcare Address [address] [place] [address] Phone Care Team Providers Care Communications Program Manager Name Role Phone Ravi Smith MD Primary Care Provider [phone] Aft, Kianna Machado MD PhD Unavailable [phone] Santiago Gilbert MD Unavailable [phone] Encounter Details Date Type Department Care Team (Late st Contact Info) Description 11/05/2018 Telephone [facility] [address] [place] [address] Fatemeh Zarate, RN Social History Tobacco Use [...] on file Legal Sex Female 1:06 AM VINEYARD TENDER Gender Identity Not on file Sexual Orientation Not on file documented as of this encounter Miscellaneous Notes * Telephone Encounter - Fatemeh Zarate RN - 11/05/2018 1:58 PM CDT ----- Message from Fatemeh Zarate RN sent at 09/30/2018 6:38 PM CDT ----- 09/30/18 Dr. Ventura, Aleah Gerber, 59 Went to [facility] ER on 09/25/18 for COPD exacerbation. Attached are the records. She sent below message through [employer] today. Magnesium was 1.1 on arrival and [...] weeks surgery will need to be discussed [phone] Aleah Gerber 1955 10/01/18 Potassium and magnesium [...] Pt had labs drawn on 10/20/18 at [facility]. Potassium level was wnl at 4.7. Pt still coming in on 10/21/18to check mag level. She is taking mag oxide 400mg bid. If magnesium level is still low--infusion isscheduled if needed. Please follow up and let pt know--she will be waiting for results. Thanks, DB 10/22- Mag 1.9. Pt given 2g mag on 10/22. Per Dr. Ventura, d/c mag orders in [facility] as pt is WNL. Pt to come [...] on filedocumented in this encounter Care Teams Communications Program Manager Relationship Specialty Start Date End Date Ravi Smith MD PCP - General 11/04/17 09/27/21 Aft, Kianna Machado MD PhD [address] [place] [address] Surgeon Surgical Oncology 11/22/17 Santiago Gilbert MD [address] [place] [address] Edge Molder Gastroenterology 11/22/17 documented as of this encounter
--- OUTSIDE RECORDS SUMMARY | 2024-04-24 14:56 | XMS_ITS | Encounter Summary ---
Author Organization [facility] Healthcare Address [address] [place] [address] Care Team Providers Care Head Custodian Name Role Phone Ravi Smith MD Primary Care Provider [phone] Aft, Kianna Machado MD PhD Unavailable [phone] Santiago Gilbert MD Unavailable [phone] Dmitry Sanderson MD Unavailable [phone] Abbi Ventura MD Unavailable Montse Thompson MD Unavailable [phone] Encounter Details Date Type Department Care Team (Latest Contact Info) Description 12/08/2018 4:28 PM CDT Hospital Encounter [facility] [address] [place] [address] Discharge Disposition: Discharge to home or self [...] on file Legal Sex Female 1:06 AM C JAVA DEVELOPER Gender Identity Not on file Sexual [...] Outside Reference (12/08/2018 4:28 PM CDT) Impressions [facility] - 12/08/2018 4:28 PM CDT These images are for Reference purposes only and have not been reviewed by [facility]. ??There will be no report generated by a [facility] Radiologist. Narrative [facility] - 12/08/2018 4:28 PM CDT EXAMINATION: ??Images For Reference Purposes Only us Lela Hardy MD PhD IMG CT PROCEDURES Final Result [facility] documented in this encounter Visit Diagnoses Not on filedocumented in this encounter Care Teams Head Custodian Relationship Specialty Start Date End Date Ravi Smith MD PCP - General 11/04/17 09/27/21 Aft, Kianna Machado MD PhD [address] [place] [address] Surgeon Surgical Oncology 11/22/17 Santiago Gilbert MD [address] [place] [address] Mountain Services Manager Gastroenterology 11/22/17 Dmitry Sanderson MD [address] [place] [address] Referring Physician Colon and Rectal Surgery 12/03/1805/06 Abbi Ventura MD [address] [place] [address] [address] [place] [address] Medical Oncologist/Salesperson Flying Squad Medical Oncology 12/03/18 Montse Thompson MD [address] [place] [address] [address] [place] [address] Consulting Physician Gynecologic Oncology 12/03/18 documented as of this encounter
--- OUTSIDE RECORDS SUMMARY | 2024-04-24 14:56 | XMS_ITS | Encounter Summary ---
Author Organization [facility] Healthcare Address [address] [place] [address] Care Team Providers Care Deputy Director Of Public Works Name Role Phone Ravi Smith MD Primary Care Provider [phone] Aft, Kianna Machado MD PhD Unavailable [phone] Santiago Gilbert MD Unavailable [phone] Dmitry Sanderson MD Unavailable [phone] Abbi Ventura MD Unavailable Montse Thompson MD Unavailable [phone] Lela Hardy MD PhD Unavailable [phone] Aft, Kianna Machado MD PhD Unavailable [phone] Reason for Visit * Reason Comments OTV Encounter Details Date Type Department Care Team (Late st Contact Info) Description 01/07/[address] [facility] Radiation Oncology at [facility] [address] [place] [address] Tonny Rey RN Malignant neoplasm of upper-inner [...] file Legal Sex Female 1:06 AM PAINT PREPPER Gender Identity Not on file Sexual Orientation [...] Primary documented in this encounter Care Teams Deputy Director Of Public Works Relationship Specialty Start Date End Date Ravi Smith MD PCP - General 11/04/17 09/27/21 Aft, Kianna Machado MD PhD [address] [place] [address] Surgeon Surgical Oncology 11/22/17 Santiago Gilbert MD [address] [place] [address] Brake Shoe Rebuilder Gastroenterology 11/22/17 Dmitry Sanderson MD [address] [place] [address] Referring Physician Colon and Rectal Surgery 12/03/1805/06 Abbi Ventura MD [address] [place], [place] [id number] Medical Oncologist/Reject Opener And Filler Medical Oncology 12/03/18 Montse Thompson MD [address] [place], [place] [address] Consulting Physician Gynecologic Oncology 12/03/18 Lela Hardy MD PhD [address] [place] [address] Radiation Oncologist Radiation Oncology 12/23/18 Aft, Kianna Machado MD PhD [address] [facility] [address] [place] [address] Surgeon Surgical Oncology 12/23/18 09/17/21 documented as of this encounter
--- OUTSIDE RECORDS SUMMARY | 2024-04-24 14:56 | XMS_ITS | Encounter Summary ---
Author Organization [facility] Healthcare Address [address] [place] [address] Care Team Providers Care Consumer Marketing Specialist Name Role Phone Ravi Smith MD Primary Care Provider [phone] Aft, Kianna Machado MD PhD Unavailable [phone] Santiago Gilbert MD Unavailable [phone] Encounter Details Date Type Department Care Team (Late st Contact Info) Description 10/20/[address] [facility] PATHOLOGY [address] [facility] 3rd Floor [place], [place] [id number] Montse Thompson MD [phone] [place] [address] Malignant neoplasm of descending colon (CMS/HCC) Social [...] file Legal Sex Female 1:06 AM ENTERPRISE MANAGER Gender Identity Not on file Sexual [...] CDT 10/20/2018 12:08 PM CDT Narrative PATHOLOGY [facility] - 10/22/2018 1:29 PM CDT EPIC results best viewed via link to PDF [facility] Galilea Muñiz Laboratory of Surgical Pathology [place], [place] [id number] CYTOPATHOLOGY REPORT FINAL WITH ADDENDUM Patient Name: ??ALEAH AGUILAR Gender: ??F : ??1955 (Age: 63) Address: ??[address] [place] [id number] Hospital #: ??[id number] Service: ??Gynecology Location: ??[facility] CAM Patient Type: ??[facility] Ancillary Taken: ??10/20/2018 Received: ??10/20/2018 Accessioned: ??10/20/2018 [...] Anastacio Ball DO 10/22/2018 13:29:13 GIGI Rose, CT(ASCP)[facility] Cervicovaginal Cytology (Pap Test) Disclaimer: [...] 68. ??This HPV test was performed at [facility] in [place], [place] utilizing the Gen-Probe Aptima assay. By this signature, I attest that the above diagnosis is based upon my personal examination of the slides(and/or other material indicated in the diagnosis). ?? Anastacio Ball DO ??Report Electronically Reviewed and Signed Out By ??Anastacio Ball DO ??10/24/2018 16:27:59 ? The HPV test was performed by [facility], [address] [place] [address]. Report Images and scanned documents, if included only viewable in PDF version The performance characteristics of some immunohistochemical stains, in-situ hybridization and fluorescence in-situ hybridization tests and immunophenotyping by flow cytometry cited in this report (if any) were determined by the Surgical Pathology Department at [facility] as part of an ongoing chemistry quality control analyst program and in compliance with federally [...] determined by the Surgical Pathology Department of [facility]. ??It has not been cleared or approved by the U. S. Food and Drug Administration. [facility] Ac Thompson MD LAB CYTOLOGY ORDERABLES Final Result PATHOLOGY [facility] 3rd Floor [place], [place] [phone] documented in this encounter Visit Diagnoses Diagnosis Malignant neoplasm of descending colon (CMS/HCC) (HCC) Malignant neoplasm of descending colon documented in this encounter Care Teams Consumer Marketing Specialist Relationship Specialty Start Date End Date Ravi Smith MD PCP - General 11/04/17 09/27/21 Aft, Kianna Machado MD PhD [address] [place] [address] Surgeon Surgical Oncology 11/22/17 Santiago Gilbert MD [address] [place] [address] [employer] Gastroenterology 11/22/17 documented as of this encounter
--- OUTSIDE RECORDS SUMMARY | 2024-04-24 14:56 | XMS_ITS | Encounter Summary ---
Author Organization [facility] Healthcare Address [address] [place] [address] Care Team Providers Care Shingle Inspector Name Role Phone Ravi Smith MD Primary Care Provider [phone] Aft, Kianna Machado MD PhD Unavailable [phone] Santiago Gilbert MD Unavailable [phone] Dmitry Sanderson MD Unavailable [phone] Abbi Ventura MD Unavailable Montse Thompson MD Unavailable [phone] Lela Hardy MD PhD Unavailable [phone] AfKianna simpson MD PhD Unavailable Reason for Visit * Reason Comments Consult * Consultation (Routine) - Closed Specialty Diagnoses / Procedures Referred By Contronny simpson Referred To Contact Radiation Oncology Diagnoses History of breast cancer Aft, Kianna Machado MD PhD Phone: tel: fax: [facility] Radiation Oncology [address] [facility] [place] [address] Phone: tel: fax: Referral ID Status Reason Start Date Expiration Date V isits Requested Visits Authorized [id number] Closed Specialty Services Required 12/01/2018 06/11/2020 1 1 Encounter Details Date Type Department Care Team (Late st Contact Info) Description 12/25/2018 9:00 AM CDT Consult [facility] Radiation Oncology at [facility] [place] [address] [place] [address] Lela Hardy MD PhD [address] [facility] [address] [place] [address] Malignant neoplasm of upper-inner quadrant of left [...] Legal Sex Female 1:06 AM DIRECTOR OF ACCREDITATION Gender Identity Not on file Sexual Orientation [...] Stage IIA (pT2, pN0(sn), cM0, G3, ER-, MO-, HER2-) - Signed by Roger Dorsey MD on 12/23/2018 - Clinical: Stage IIB (cT2, cN0, cM0, G3, ER-, MO-, HER2-) - Signed by Lela Hardy MD PhD on01/01/2019 IDENTIFYING DATA: Aleah Gerber is a 63 y.o. 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 She is status post [...] invasive ductal carcinoma, grade 3, triple negative. [facility] Genetic testing revealed a BRCA2 positivity, BRIP1 [...] devices: No Connective tissue disease: No PAST ONCOLOGY ACCOUNT SPECIALIST HISTORY: Menarche at age 14. She underwent [...] Breast Needle Localization partial mastectomy (L), Biopsy [place] Lymph Node With Lymphoscintigraphy (L), Insertion Port [...] upper inner quadrant breast invasive ductal carcinoma, lP2W5N1, ER negative, MO negative, HER-2 negative. She is status post [...] scheduled for a simulation with treatment to [facility] thereafter. Patient prefers treatment at [facility]. We would recommend delaying her prophylactic [...] Medical Oncologist: Lorenzo Patient prefers treatment at [place] Prior radiation: NO Port: YES Pacemaker: NO [...] 2018 documented in this encounter Care Teams Shingle Inspector Relationship Specialty Start Date End Date Ravi Smith MD PCP - General 11/04/17 09/27/21 Aft, Kianna Machado MD PhD [address] [place] [address] Surgeon Surgical Oncology 11/22/17 Santiago Gilbert MD [address] [place] [address] Product Safety Professional Gastroenterology 11/22/17 Dmitry Sanderson MD [address] [place] [address] Referring Physician Colon and Rectal Surgery 12/03/1805/06 Abbi Ventura MD [address] [place] [address] [address] [place] [address] Medical Oncologist/Engraver Block Medical Oncology 12/03/18 Montse Thompson MD [employer] [facility] [address] [place] [address] Consulting Physician Gynecologic Oncology 12/03/18 Lela Hardy MD PhD [address] [place] [address] Radiation Oncologist Radiation Oncology 12/23/18 Aft, Kianna Machado MD PhD [address] [place] [address] [address] [place] [address] Surgeon Surgical Oncology 12/23/18 09/17/21 documented as of this encounter
--- OUTSIDE RECORDS SUMMARY | 2024-04-24 14:56 | XMS_ITS | Encounter Summary ---
Author Organization [facility] Healthcare Address [address] [place] [address] Care Team Providers Care Mobile Marketing Specialist Name Role Phone Ravi Smith MD Primary Care Provider [phone] Aft, Kianna Machado MD PhD Unavailable [phone] Santiago Gilbert MD Unavailable [phone] Dmitry Sanderson MD Unavailable [phone] Abbi Ventura MD Unavailable Montse Thompson MD Unavailable [phone] Encounter Details Date Type Department Care Team (Latest Contact Info) Description 12/08/2018 4:28 PM CDT Hospital Encounter [facility] [address] [place] [address] Discharge Disposition: Discharge to home or self [...] on file Legal Sex Female 1:06 AM EGG SEPARATOR Gender Identity Not on file Sexual Orientation [...] Outside Reference (12/08/2018 4:28 PM CDT) Impressions [facility] - 12/08/2018 4:28 PM CDT These images are for Reference purposes only and have not been reviewed by [facility]. ??There will be no report generated by a [facility] Radiologist. Narrative [facility] - 12/08/2018 4:28 PM CDT EXAMINATION: ??Images For Reference Purposes Only us Lela Hardy MD PhD IMG CT PROCEDURES Final Result [facility] documented in this encounter Visit Diagnoses Not on filedocumented in this encounter Care Teams Mobile Marketing Specialist Relationship Specialty Start Date End Date Ravi Smith MD PCP - General 11/04/17 09/27/21 Aft, Kianna Machado MD PhD [address] [place] [address] Surgeon Surgical Oncology 11/22/17 Santiago Gilbert MD [address] [place] [address] Managed Care Specialist Gastroenterology 11/22/17 Dmitry Sanderson MD [address] [place] [address] Referring Physician Colon and Rectal Surgery 12/03/1805/06 Abbi Ventura MD [address] [place] [address] [address] [place] [address] Medical Oncologist/Gambling Floor Supervisor Medical Oncology 12/03/18 Montse Thompson MD [address] [place] [address] [address] [place] [address] Consulting Physician Gynecologic Oncology 12/03/18 documented as of this encounter
--- OUTSIDE RECORDS SUMMARY | 2024-04-24 14:56 | XMS_ITS | Encounter Summary ---
Author Organization [facility] Address [address] [place] [address] Phone Care Team Providers Care Belt Glass Sander Name Role Phone Ravi Smith MD Primary Care Provider [phone] Aft, Kianna Machado MD PhD Unavailable [phone] Santiago Gilbert MD Unavailable [phone] Dmitry Sanderson MD Unavailable [phone] Abbi Ventura MD Unavailable Montse Thompson MD Unavailable [phone] Reason for Visit * Oncology (Routine) - Closed Specialty Diagnoses / Procedures Referred By Contac t Referred To Contact Medical Oncology / Oncology Diagnoses 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 Ventura to discuss TC Procedures ONCBCN CLINIC APPOINTMENT REQUEST RETURN [place] Montoya, KAM [facility] [address] [address] Phone: tel: fax: Abbi Ventura MD [address] [facility] [address] [place] [address] Phone: tel: fax: Referral ID Status Reason Start Date Expiration Date V isits Requested Visits Authorized [id number] Closed Specialty Services Required 06/04/2018 05/05/2019 99 99 Encounter Details Date Type Department Care Team (Late st Contact Info) Description 12/03/2018 2:30 PM CDT Office Visit [facility] Oncology [address] [place] [address] Abbi Ventura MD [address] [facility] [address] [address] [place] [address] Malignant neoplasm of descending colon (CMS/HCC) Social [...] on file Legal Sex Female 1:06 AM SPEECH LANGUAGE THERAPIST Gender Identity Not on file Sexual [...] this encounter Progress Notes * Vianey Miller, SUPERVISOR COATING - 12/03/2018 2:30 PM CDT The Patient Identifying Data: Aleah Gerber is a 63 y.o. female seen in followup today DIAGNOSIS: 1. 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 [employer] risk showed no mutation in [facility] 1 [...] Recent labs, radiology and pathology reviewed in [facility] ASSESSMENT: T4bN0 disease, Stage IIC [...] MSN, OCN, ANP Nurse Practitioner, Medical Oncology Classroom Paraprofessional completed by using [employer] Fluency Direct speaking software, therefore, transcriptionvariances may [...] 04/01/2019 documented in this encounter Care Teams Belt Glass Sander Relationship Specialty Start Date End Date Ravi Smith MD PCP - General 11/04/17 09/27/21 Aft, Kianna Machado MD PhD [address] [place] [address] Surgeon Surgical Oncology 11/22/17 Santiago Gilbert MD [address] [place] [address] Call Box Wirer Gastroenterology 11/22/17 Dmitry Sanderson MD [address] [place] [address] Referring Physician Colon and Rectal Surgery 12/03/1805/06 Abbi Ventura MD [address] [place] [address] [address] [place] [address] Medical Oncologist/Operations And Maintenance Manager Medical Oncology 12/03/18 Montse Thompson MD [address] [place] [address] Consulting Physician Gynecologic Oncology 12/03/18 documented as of this encounter
--- OUTSIDE RECORDS SUMMARY | 2024-04-24 14:56 | XMS_ITS | Encounter Summary ---
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 Ventura to discuss TC Procedures ONCBCN CLINIC APPOINTMENT REQUEST RETURN [place] Montoya, FAMILY PRACTICE NURSE PRACTITIONER [address] [address] Phone: tel: fax: Abbi Ventura MD [address] [address] [address] [place] [address] Phone: tel: fax: Referral ID Status Reason Start Date Expiration Date V isits Requested Visits Authorized [id number] Closed Specialty Services Required 06/04/2018 05/05/2019 99 99 Encounter Details Date Type Department Care Team (Late st Contact Info) Description 10/15/2018 10:00 AM CDT Office Visit [facility] Oncology [address] [place] [address] Abbi Ventura MD [address] [place] [address] Malignant neoplasm of descending colon (CMS/HCC) Social [...] file Legal Sex Female 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 documented in this encounter Plan of Treatment Not on file documented as of this encounter Results * CEA (12/03/2018 2:05 PM CDT) Pathologist [facility] CEA 2.7 <=5.0 ng/mL [facility] Comment: Interpretative Data: Reference Range: Non-Smokers: 0.0 - 5.0 ng/mL Smokers: 0.0 ? 6.5 ng/mL This test was developed and its performance characteristics determined by the [facility] in a manner consistent with CLIA requirements. This test has not been cleared or approved by the U.S. Food and Drug Administration. Current interpretive data was last revised 2018. Blood specimen (specimen) 12/03/2018 2:05 PM CDT 12/03/2018 3:48 PM CDT Abbi Ventura MD LAB BLOOD ORDERABLES Final Resul t Performing Organization Address [facility] de Phone Number [facility] [email or web address] [address] * Magnesium (12/03/2018 2:05 PM CDT) [facility] Magnesium 1.9 1.4 - 2.5 mg/dL [facility] Blood specimen (specimen) 12/03/2018 2:05 PM CDT 12/03/2018 2:05 PM CDT Abbi Ventura MD LAB BLOOD ORDERABLES Final Resul t Performing Organization Address [facility] Co de Phone Number [facility] Department [place] [address] * Comprehensive metabolic panel (12/03/2018 2:05 PM CDT) Sodium 139 135 - 145 mmol/L [facility] Potassium, pl 4.2 3.3 - 4.9 mmol/L [facility] Chloride 104 97 - 110 mmol/L [facility] CO2 28 22 - 32 mmol/L [facility] Anion gap 8 2 - 15 mmol/L [facility] BUN 21 8 - 25 mg/dL [facility] Creatinine 1.04 0.60 - 1.10 mg/dL [facility] Glucose 143 70 - 199 mg/dL [facility] [...] 2017. Calcium 9.7 8.5 - 10.3 mg/dL [facility] Bilirubin, total 0.2 0.1 - 1.2 mg/dL [facility] Protein, pl 6.8 6.5 - 8.5 g/dL [facility] Albumin 4.1 3.5 - 5.0 g/dL [facility] Alk phos 72 40 - 130 Units/L [facility] ALT 14 7 - 45 Units/L [facility] AST 19 10 - 45 Units/L [facility] Blood specimen (specimen) 12/03/2018 2:05 PM CDT 12/03/2018 2:05 PM CDT us Abbi Ventura MD LAB BLOOD ORDERABLES Final Resul t [facility] [place] [address] * (ABNORMAL) CBC with auto differential (12/03/2018 2:05 PM CDT) WBC 6.6 3.8 - 9.9 K/cumm [facility] Hgb 10.4(L) 11.9 - 15.5 g/dL [facility] Hct 31.6(L) 35.6 - 45.5 % [facility] Plt 150 150 - 400 K/cumm [facility] MPV 9.0(L) 9.1 - 12.3 fL [facility] RBC 3.41(L) 3.90 - 5.20 M/cumm [facility] MCV 92.7 81.3 - 96.4 fL [facility] MCH 30.5 27.1 - 33.3 pg [facility] MCHC 32.9 32.3 - 35.7 g/dL [facility] RDW CV 12.7 11.1 - 14.9 % [facility] RDW SD 42.9 35.7 - 48.1 fL [facility] NRBC abs 0.00 0.00 - 0.01 K/cumm [facility] Blood specimen (specimen) 12/03/2018 2:05 PM CDT 12/03/2018 2:05 PM CDT Abbi Ventura MD LAB BLOOD ORDERABLES Final Resul t Performing Organization Address [facility] de Phone Number [facility] [email or web address] [address] * Magnesium (10/22/2018 12:30 PM CDT) Pathologist [facility] Magnesium 1.9 1.4 - 2.5 mg/dL [facility] Blood specimen (specimen) 10/22/2018 12:30 PM CDT 10/22/2018 12:35 PM CDT us Abbi Ventura MD LAB BLOOD ORDERABLES Final Resul t Performing Organization Address 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) Malignant neoplasm of descending colon documented in this encounter Orders Appointment Requests Count Last Ordered Date Fi rst Ordered Date ONCBCN CLINIC APPOINTMENT REQUEST 2 019 10/15/2018 ONCBCN LAB APPOINTMENT 2 12/03/201810/22 documented in this encounter Care Teams Plant Changer Relationship Specialty Start Date End Date Ravi Smith MD PCP - General 11/04/17 09/27/21 Aft, Kianna Machado MD PhD [address] [place] [address] Surgeon Surgical Oncology 11/22/17 Santiago Gilbert MD [address] [place] [address] Guard Lieutenant Gastroenterology 11/22/17 documented as of this encounter
--- OUTSIDE RECORDS SUMMARY | 2024-04-24 14:56 | XMS_ITS | Encounter Summary ---
Author Organization [facility] Healthcare Address [address] [place] [address] Care Team Providers Care Advertising Operations Coordinator Name Role Phone Ravi Smith MD Primary Care Provider [phone] Aft, Kianna Machado MD PhD Unavailable [phone] Santiago Gilbert MD Unavailable [phone] Dmitry Sanderson MD Unavailable [phone] Abbi Ventura MD Unavailable Montse Thompson MD Unavailable [phone] Lela Hardy MD PhD Unavailable [phone] Aft, Kianna Machado MD PhD Unavailable [phone] Encounter Details Date Type Department Care Team (Late st Contact Info) Description 01/02/2019 Telephone [facility] Radiation Oncology at [facility] [address] [place] [address] Lela Hardy MD PhD [address] [facility] [address] [place] [address] Social History Tobacco Use Types Packs/Day Years [...] on file 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 Gender Identity Not on file Sexual [...] [address] [place] [address] Surgeon Surgical Oncology 11/22/17 Santiago Gilbert MD [address] [place] [address] Finish Saw Operator Gastroenterology 11/22/17 Dmitry Sanderson MD [address] [place] [address] Referring Physician Colon and Rectal Surgery 12/03/1805/06 Abbi Ventura MD [address] [place] [address] [address] [place] [address] Medical Oncologist/Bench Grinder Medical Oncology 12/03/18 Montse Thompson MD [address] [facility] [address] [address] [place] [address] Consulting Physician Gynecologic Oncology 12/03/18 Lela Hardy MD PhD [address] [place] [address] [address] [place] [address] Radiation Oncologist Radiation Oncology 12/23/18 Aft, Kianna Machado MD PhD [address] [place] [address] [address] [place] [address] Surgeon Surgical Oncology 12/23/18 09/17/21 documented as of this encounter
--- OUTSIDE RECORDS SUMMARY | 2024-04-24 14:56 | XMS_ITS | Encounter Summary ---
Author Organization [facility] Address [address] [place] [address] Phone Care Team Providers Care Supervisor Respiratory Name Role Phone Ravi Smith MD Primary Care Provider [phone] Aft, Kianna Machado MD PhD Unavailable [phone] Santiago Gilbert MD Unavailable [phone] Dmitry Sanderson MD Unavailable [phone] Abbi Ventura MD Unavailable Montse Thompson MD Unavailable Reason for Visit * Reason Comments Follow-up pt has concerns rega rding port Encounter Details Date Type Department Care Team (Late st Contact Info) Description 12/08/2018 1:40 PM CDT Office Visit [facility] Surgery [address] [facility] 5th [place] [address] [place] [id number] Aracelis Jaramillo MD PhD [address] [id number] [place] [address] Malignant neoplasm of upper-inner quadrant of left [...] on file 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 Computer Engineering Technician variances may occur. Despite proofreading, typographical errors may occur. cc: Ravi Smith MD documented in this encounter Plan of Treatment Not on file documented as of this encounter Visit Diagnoses Diagnosis Malignant neoplasm of upper-inner quadrant of left breast in female, estrogen receptor negative (HCC)- Primary Symptomatic disorder of neck documented in this encounter Care Teams Supervisor Respiratory Relationship Specialty Start Date End Date Ravi Smith MD PCP - General 11/04/17 09/27/21 Aft, Kianna Machado MD PhD [address] [place] [address] Surgeon Surgical Oncology 11/22/17 Santiago Gilbert MD [address] [place] [address] Line Erector Gastroenterology 11/22/17 Dmitry Sanderson MD [address] [place] [address] Referring Physician Colon and Rectal Surgery 12/03/1805/06 Abbi Ventura MD [address] [place] [address] Medical Oncologist/Project Manager/Design Manager Medical Oncology 12/03/18 Montse Thompson MD [address] [place] [address] Consulting Physician Gynecologic Oncology 12/03/18 documented as of this encounter
--- OUTSIDE RECORDS SUMMARY | 2024-04-24 14:56 | XMS_ITS | Encounter Summary ---
Author Organization [facility] Healthcare Address [address] [place] [address] Care Team Providers Care Print Shop Manager Name Role Phone Ravi Smith MD Primary Care Provider [phone] Aft, Kianna Machado MD PhD Unavailable [phone] Santiago Gilbert MD Unavailable [phone] Dmitry Sanderson MD Unavailable [phone] Abbi Ventura MD Unavailable Montse Thompson MD Unavailable [phone] Encounter Details Date Type Department Care Team (Latest Contact Info) Description 12/08/2018 4:29 PM CDT - 12/08/2018 11:59 PM CDT Hospital Encounter [facility] [address] [place] [address] Discharge Disposition: Discharge to home or self [...] file Legal 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 Radiology. ??There will be no report generated by a [facility] Radiologist. Narrative RAD_PACS_[facility] - 12/08/2018 4:29 PM CDT EXAMINATION: ??Images For Reference Purposes Only us Lela Hardy MD PhD IMG CT PROCEDURES Final Result RAD_PACS[facility] documented in this encounter Visit Diagnoses Not on filedocumented in this encounter Care Teams Print Shop Manager Relationship Specialty Start Date End Date Ravi Smith MD PCP - General 11/04/17 09/27/21 AfKianna simpson MD PhD [address] [place] [address] Surgeon Surgical Oncology 11/22/17 Santiago Gilbert MD [address] [place] [address] Esl Instructional Assistant Gastroenterology 11/22/17 Dmitry Sanderson MD [address] [place] [address] Referring Physician Colon and Rectal Surgery 12/03/1805/06 Abbi Ventura MD [address] [facility] [address] [place] [address] Medical Oncologist/Memorial Counselor Medical Oncology 12/03/18 Montse Thompson MD [address] [facility] [address] [place] [address] Consulting Physician Gynecologic Oncology 12/03/18 documented as of this encounter
--- OUTSIDE RECORDS SUMMARY | 2024-04-24 14:56 | XMS_ITS | Encounter Summary ---
Author Organization [facility] Address [address] [place] [address] Phone Care Team Providers Care Spindle Setter Name Role Phone Ravi Smith MD Primary Care Provider [phone] Aft, Kianna Machado MD PhD Unavailable Santiago Gilbert MD Unavailable [phone] Encounter Details Date Type Department Care Team (Late st Contact Info) Description 10/22/2018 Telephone [facility] Obstetrics and Gynecology [address] [place] [address] Clinic, [facility] Mat Med Social History Tobacco Use Types [...] file Legal 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 Gender Identity Not on file Sexual Orientation Not on file documented as of this encounter Miscellaneous Notes * Telephone Encounter - Yari Cid - 10/22/2018 11:36 AM CDT 10/22-left message to c/b for scheduling u/sCrewwc documented in this encounter Plan of Treatment Not on file documented as of this encounter Visit Diagnoses Not on filedocumented in this encounter Care Teams Spindle Setter Relationship Specialty Start Date End Date Ravi Smith MD PCP - General 11/04/17 09/27/21 Aft, Kianna Machado MD PhD [address] [place] [address] Surgeon Surgical Oncology 11/22/17 Santiago Gilbert MD [address] [place] [address] Laundromat Worker Gastroenterology 11/22/17 documented as of this encounter
--- OUTSIDE RECORDS SUMMARY | 2024-04-24 14:56 | XMS_ITS | Encounter Summary ---
Author Organization [facility] Healthcare Address [address] [place] [address] Care Team Providers Care Saloonkeeper Name Role Phone Ravi Smith MD Primary Care Provider [phone] Aft, Kianna Machado MD PhD Unavailable [phone] Santiago Gilbert MD Unavailable [phone] Dmitry Sanderson MD Unavailable [phone] Abbi Ventura MD Unavailable Montse Thompson MD Unavailable [phone] Lela Hardy MD PhD Unavailable [phone] Aft, Kianna Machado MD PhD Unavailable [phone] Encounter Details Date Type Department Care Team (Late st Contact Info) Description 01/07/2019 2:00 PM CDT Treatment [facility] Radiation Oncology at [facility] [address] [place] [address] Lela Hardy MD PhD [address] [facility] [address] [facility] [address] [place] [address] Social History Tobacco Use Types Packs/Day Years [...] on file 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 Gender Identity Not on file Sexual Orientation Not on file documented as of this encounter Plan of Treatment Not on file documented as of this encounter Visit Diagnoses Not on filedocumented in this encounter Care Teams Saloonkeeper Relationship Specialty Start Date End Date Ravi Smith MD PCP - General 11/04/17 09/27/21 Aft, Kianna Machado MD PhD [address] [place] [address] Surgeon Surgical Oncology 11/22/17 Santiago Gilbert MD [address] [place] [address] Heading Maker Gastroenterology 11/22/17 Dmitry Sanderson MD [address] [place] [address] Referring Physician Colon and Rectal Surgery 12/03/1805/06 Abbi Ventura MD [facility] [address] [place] [address] Medical Oncologist/Sales And Leasing Agent Medical Oncology 12/03/18 Montse Thompson MD [facility] [address] [address] [place] [address] Consulting Physician Gynecologic Oncology 12/03/18 Lela Hardy MD PhD [address] [place], [place] [id number] Radiation Oncologist Radiation Oncology 12/23/18 Aft, Kianna Machado MD PhD [address] [facility] [address] [place], [place] [id number] Surgeon Surgical Oncology 12/23/18 09/17/21 documented as of this encounter
--- OUTSIDE RECORDS SUMMARY | 2024-04-24 14:56 | XMS_ITS | Encounter Summary ---
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
--- OUTSIDE RECORDS SUMMARY | 2024-04-24 14:56 | XMS_ITS | Encounter Summary ---
Author Organization [facility] Healthcare Address [address] [place] [address] Care Team Providers Care Glass Setter Name Role Phone Ravi Smith MD Primary Care Provider [phone] Aft, Kianna Machado MD PhD Unavailable [phone] Santiago Gilbert MD Unavailable [phone] Encounter Details Date Type Department Care Team (Late st Contact Info) Description 10/20/2018 12:15 PM CDT Lab 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
--- OUTSIDE RECORDS SUMMARY | 2024-04-24 14:56 | XMS_ITS | Encounter Summary ---
Author Organization [facility] Address [address] [place] [address] Phone Care Team Providers Care Mobile Mechanic Name Role Phone Ravi Smith MD Primary Care Provider [phone] Kianna Bunch MD PhD Unavailable [phone] Santiago Gilbert MD Unavailable [phone] Reason for Referral * Consultation (Routine) - Closed Specialty Diagnoses / Procedures Referred By Vijaya simpson Referred To Contact Radiation Oncology Diagnoses History of breast cancer Kianna Bunch MD PhD Phone: tel: fax: [facility] Radiation Oncology [facility] [facility] [place] [address] Phone: tel: fax: Referral ID Status Reason Start Date Expiration Date V isits Requested Visits Authorized [id number] Closed Specialty Services Required 12/01/2018 06/11/2020 1 1 Question Answer Is this referral for Breast Health Multi-Disciplinary Clinic? No Please select the performing region: [facility] [[id number]] Please select the performing department: [facility] CAM RAD ONC [[id number]] # of visits: 1 Comments Pt need an appt with radiation oncology- [facility], per Dr. 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
--- OUTSIDE RECORDS SUMMARY | 2024-04-24 14:56 | XMS_ITS | Encounter Summary ---
Author Organization [facility] Healthcare Address [address] [place] [address] Care Team Providers Care Assistant Production Manager Name Role Phone Ravi Smith MD Primary Care Provider [phone] Aft, Kianna Machado MD PhD Unavailable [phone] Santiago Gilbert MD Unavailable [phone] Dmitry Sanderson MD Unavailable [phone] Abbi Ventura MD Unavailable Montse Thompson MD Unavailable [phone] Lela Hardy MD PhD Unavailable [phone] Aft, Kianna Machado MD PhD Unavailable [phone] Encounter Details Date Type Department Care Team (Late st Contact Info) Description 12/25/2018 Telephone [facility] Radiation Oncology at [facility] [address] [place] [address] Tali Negron, KAM [address] [place], [place] [id number] Social History Tobacco Use Types Packs/Day Years [...] on file 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 Consent is signed today and orders are in. Patient is aware of location of Rad Onc [facility]. documented in this encounter Plan of Treatment Not on file documented as of this encounter Visit Diagnoses Not on filedocumented in this encounter Care Teams Assistant Production Manager Relationship Specialty Start Date End Date Ravi Smith MD PCP - General 11/04/17 09/27/21 Aft, Kianna Machado MD PhD [address] [place] [address] Surgeon Surgical Oncology 11/22/17 Santiago Gilbert MD [address] [place] [address] Rubber Stamp Assembler Gastroenterology 11/22/17 Dmitry Sanderson MD [address] [place] [address] Referring Physician Colon and Rectal Surgery 12/03/1805/06 Abbi Ventura MD [address] [place] [address] [address] [place] [address] Medical Oncologist/Dixonac Operator Medical Oncology 12/03/18 Montse Thompson MD [address] [facility] [address] [place], [place] [id number] Consulting Physician Gynecologic Oncology 12/03/18 Lela Hardy MD PhD [address] [facility] [address] [place], [place] [id number] Radiation Oncologist Radiation Oncology 12/23/18 Aft, Kianna Machado MD PhD [address] [facility] [address] [place], [place] [id number] Surgeon Surgical Oncology 12/23/18 09/17/21 documented as of this encounter
--- OUTSIDE RECORDS SUMMARY | 2024-04-24 14:56 | XMS_ITS | Encounter Summary ---
Author Organization [facility] Address [address] [place] [address] Phone Care Team Providers Care Rehabilitation Technician Name Role Phone Ravi Smith MD Primary Care Provider [phone] Aft, Kianna Machado MD PhD Unavailable [phone] Santiago Gilbert MD Unavailable [phone] Encounter Details Date Type Department Care Team (Latest Contact Info) Description 11/05/2018 1:00 PM CDT Clinical Support [facility] Oncology [address] [place] [address] Hypomagnesemia; Malignant neoplasm of upper-inner quadrant of [...] file 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 Gender Identity Not on file Sexual [...] Final Resul t [facility] Department [place] [address] documented in this encounter Visit Diagnoses Diagnosis Hypomagnesemia 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
--- OUTSIDE RECORDS SUMMARY | 2024-04-24 14:56 | XMS_ITS | Encounter Summary ---
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
--- OUTSIDE RECORDS SUMMARY | 2024-04-24 14:56 | XMS_ITS | Encounter Summary ---
Author Organization [facility] Address [address] [place] [address] Phone Care Team Providers Care Diamond Picker Name Role Phone Ravi Smith MD Primary Care Provider [phone] Aft, Kianna Machado MD PhD Unavailable [phone] Santiago Gilbert MD Unavailable [phone] Dmitry Sanderson MD Unavailable [phone] Abbi Ventura MD Unavailable Montse Thompson MD Unavailable [phone] Encounter Details Date Type Department Care Team (Latest Contact Info) Description 12/03/2018 2:00 PM CDT Clinical Support [facility] Oncology [address] [place] [address] Malignant neoplasm of descending colon (CMS/HCC) Social [...] on file 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 Gender Identity Not on file Sexual [...] abs 4.7 1.7 - 6.5 K/cumm [facility] Imm gran abs 0.0 0.0 - 0.1 K/cumm [facility] Lymphocyte abs 1.1 0.8 - 3.3 [facility] Monocyte abs 0.4 0.2 - 0.8 K/cumm [facility] Eosinophil abs 0.3 0.0 - 0.5 K/cumm [facility] Basophil abs 0.0 0.0 - 0.1 K/cumm [facility] Neutrophil pct 70.5 % [facility] Comment: Interpretive Data Percent cell count reference ranges are not reported, since discordance with absolute values may lead to misinterpretation of CBC data. Current Interpretive Data was last revised on 2017. Imm gran pct 0.3 % [facility] Comment: Interpretive Data Percent cell count reference ranges are not reported, since discordance with absolute values may lead to misinterpretation of CBC data. Current Interpretive Data was last revised on 2017. Lymphocyte pct 17.1 % [facility] Comment: Interpretive Data Percent cell count reference ranges are not reported, since discordance with absolute values may lead to misinterpretation of CBC data. Current Interpretive Data was last revised on 2017. Monocyte pct 6.5 % [facility] Comment: Interpretive Data Percent cell count reference ranges are not reported, since discordance with absolute values may lead to misinterpretation of CBC data. Current Interpretive Data was last revised on 2017. Eosinophil pct 5.0 % [facility] Comment: Interpretive Data Percent cell count reference ranges are not reported, since discordance with absolute values may lead to misinterpretation of CBC data. Current Interpretive Data was last revised on 2017. Basophil pct 0.6 % [facility] Comment: Interpretive Data Percent cell count reference ranges are not reported, since discordance with absolute values may lead to misinterpretation of CBC data. Current Interpretive Data was last revised on 2017. Blood specimen (specimen) 12/03/2018 2:05 PM CDT 12/03/2018 2:05 PM CDT us Abbi Ventura MD LAB BLOOD ORDERABLES Final Resul t [facility] [place] [address] * (ABNORMAL) CBC with auto differential (12/03/2018 2:05 PM CDT) WBC 6.6 3.8 - 9.9 K/cumm [facility] Hgb 10.4(L) 11.9 - 15.5 g/dL [facility] Hct 31.6(L) 35.6 - 45.5 % [facility] Plt 150 150 - 400 K/cumm [facility] MPV 9.0(L) 9.1 - 12.3 fL [facility] RBC 3.41(L) 3.90 - 5.20 M/cumm [facility] MCV 92.7 81.3 - 96.4 fL [facility] MCH 30.5 27.1 - 33.3 pg [facility] MCHC 32.9 32.3 - 35.7 g/dL [facility] RDW CV 12.7 11.1 - 14.9 % [facility] RDW SD 42.9 35.7 - 48.1 fL [facility] NRBC abs 0.00 0.00 - 0.01 K/cumm [facility] Blood specimen (specimen) 12/03/2018 2:05 PM CDT 12/03/2018 2:05 PM CDT us Abbi Ventura MD LAB BLOOD ORDERABLES Final Resul t [facility] [place] [address] * Comprehensive metabolic panel (12/03/2018 2:05 PM CDT) Sodium 139 135 - 145 mmol/L [facility] Potassium, pl 4.2 3.3 - 4.9 mmol/L [facility] Chloride 104 97 - 110 mmol/L [facility] CO2 28 22 - 32 mmol/L [facility] Anion gap 8 2 - 15 mmol/L [facility] BUN 21 8 - 25 mg/dL [facility] Creatinine 1.04 0.60 - 1.10 mg/dL [facility] Glucose 143 70 - 199 mg/dL [facility] Comment: Interpretive Data Fasting glucose [...] Calcium 9.7 8.5 - 10.3 mg/dL [facility] Bilirubin, total 0.2 0.1 - 1.2 mg/dL [facility] Protein, pl 6.8 6.5 - 8.5 g/dL [facility] Albumin 4.1 3.5 - 5.0 g/dL [facility] Alk phos 72 40 - 130 Units/L [facility] ALT 14 7 - 45 Units/L [facility] AST 19 10 - 45 Units/L [facility] Blood specimen (specimen) 12/03/2018 2:05 PM CDT 12/03/2018 2:05 PM CDT Abbi Ventura MD LAB BLOOD ORDERABLES Final Resul t Performing Organization Address [facility] de Phone Number [facility] [place] [address] * Magnesium (12/03/2018 2:05 PM CDT) Magnesium 1.9 1.4 - 2.5 mg/dL [facility] Blood specimen (specimen) 12/03/2018 2:05 PM CDT 12/03/2018 2:05 PM CDT Abbi Ventura MD LAB BLOOD ORDERABLES Final Resul t Performing Organization Address [facility] de Phone Number [facility] [place] [address] * CEA (12/03/2018 2:05 PM CDT) CEA 2.7 <=5.0 ng/mL [facility] Comment: Interpretative Data: Reference Range: Non-Smokers: [...] Final Resul t [facility] [place] [address] documented in this encounter Visit Diagnoses Diagnosis Malignant neoplasm of descending colon (CMS/HCC) (HCC) Malignant neoplasm of descending colon documented in this encounter Orders Appointment Requests Count Last Ordered Date Fi rst Ordered Date ONCBCN LAB APPOINTMENT 1 12/03/2018 documented in this encounter Care Teams Diamond Picker Relationship Specialty Start Date End Date Ravi Smith MD PCP - General 11/04/17 09/27/21 Aft, Kianna Machado MD PhD [address] [place] [address] Surgeon Surgical Oncology 11/22/17 Santiago Gilbert MD [address] [place] [address] Ball Holder Gastroenterology 11/22/17 Dmitry Sanderson MD [address] [place] [address] Referring Physician Colon and Rectal Surgery 12/03/1805/06 Abbi Ventura MD [address] [place] [address] Medical Oncologist/Centrifugal Supervisor Medical Oncology 12/03/18 Montse Thompson MD [address] [place] [address] Consulting Physician Gynecologic Oncology 12/03/18 documented as of this encounter
--- OUTSIDE RECORDS SUMMARY | 2024-04-24 14:56 | XMS_ITS | Encounter Summary ---
Author Organization [facility] Address [address] [place] [address] Phone Care Team Providers Care Criminology Professor Name Role Phone Ravi Smith MD Primary Care Provider [phone] Aft, Kianna Machado MD PhD Unavailable [phone] Santiago Gilbert MD Unavailable [phone] Dmitry Sanderson MD Unavailable [phone] Abbi Ventura MD Unavailable Montse Thompson MD Unavailable [phone] Lela Hardy MD PhD Unavailable [phone] Aft, Kianna Machado MD PhD Unavailable [phone] Reason for Visit * Reason Comments [place] Encounter Details Date Type Department Care Team (Latest Contact Info) Description 12/25/2018 8:30 AM CDT Clinical Support [facility] Oncology [address] [place] [address] Dehydration (Primary Dx); Malignant neoplasm of descending [...] on file 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 Gender Identity Not on file Sexual Orientation [...] mL documented in this encounter Care Teams Criminology Professor Relationship Specialty Start Date End Date Ravi Smith MD PCP - General 11/04/17 09/27/21 Aft, Kianna Machado MD PhD [address] [place] [address] Surgeon Surgical Oncology 11/22/17 Santiago Gilbert MD [address] [place] [address] Hospital Coder Gastroenterology 11/22/17 Dmitry Sanderson MD [address] [place] [address] Referring Physician Colon and Rectal Surgery 12/03/1805/06 Abbi Ventura MD [address] [place] [address] [address] [place] [address] Medical Oncologist/Prepress Operator Medical Oncology 12/03/18 Montse Thompson MD [address] [place] [address] [address] [place] [address] Consulting Physician Gynecologic Oncology 12/03/18 Lela Hardy MD PhD [address] [place] [address] [address] [place] [address] Radiation Oncologist Radiation Oncology 12/23/18 Aft, Kianna Machado MD PhD [address] [place] [address] [address] [place] [address] Surgeon Surgical Oncology 12/23/18 09/17/21 documented as of this encounter
--- OUTSIDE RECORDS SUMMARY | 2024-04-24 14:56 | XMS_ITS | Encounter Summary ---
Author Organization 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 Gender Identity Not on file Sexual [...] Magnesium 1.9 1.4 - 2.5 mg/dL [facility] Blood specimen (specimen) 10/22/2018 12:30 PM CDT 10/22/2018 12:35 PM CDT us Abbi Ventura MD LAB BLOOD ORDERABLES Final Resul t [facility] One [facility] [place] [address] documented in this encounter Visit Diagnoses Diagnosis Malignant neoplasm of descending colon (CMS/HCC) (HCC) Malignant neoplasm of descending colon documented in this encounter Orders Appointment Requests Count Last Ordered Date Fi rst Ordered Date ONCBCN LAB APPOINTMENT 1 10/22/2018 documented in this encounter Care Teams Clinical Resource Manager Relationship Specialty Start Date End Date Ravi Smith MD PCP - General 11/04/17 09/27/21 Aft, Kianna Machado MD PhD [address] [place] [address] Surgeon Surgical Oncology 11/22/17 Santiago Gilbert MD [address] [place] [address] Supervisor Paper Testing Gastroenterology 11/22/17 documented as of this encounter
--- OUTSIDE RECORDS SUMMARY | 2024-04-24 14:56 | XMS_ITS | Encounter Summary ---
Author Organization [facility] Address [address] [place] [address] Phone Care Team Providers Care Clerk General Name Role Phone Ravi Smith MD Primary Care Provider [phone] Aft, Kianna Machado MD PhD Unavailable [phone] Santiago Gilbert MD Unavailable [phone] Encounter Details Date Type Department Care Team (Late st Contact Info) Description 11/13/2018 Orders Only [facility] Obstetrics and Gynecology [address] [facility] Advanced Medicine 13th [place] [address] [place] [address] Evon Arreola, RN BRCA2 gene mutation positive [...] on file 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 Gender Identity Not on file Sexual Orientation Not on file documented as of this encounter Plan of Treatment Not on file documented as of this encounter Visit Diagnoses Diagnosis BRCA2 gene mutation positive in female- Primary documented in this encounter Care Teams Clerk General Relationship Specialty Start Date End Date Ravi Smith MD PCP - General 11/04/17 09/27/21 Aft, Kianna Machado MD PhD [address] [place] [address] Surgeon Surgical Oncology 11/22/17 Santiago Gilbert MD [address] [place] [address] Drapery Maker Gastroenterology 11/22/17 documented as of this encounter
--- OUTSIDE RECORDS SUMMARY | 2024-04-24 14:56 | XMS_ITS | Encounter Summary ---
Author Organization [facility] Address [address] [place] [address] Care Team Providers Care Handicapped Teacher Name Role Phone Ravi Smith MD Primary Care Provider [phone] Aft, Kianna Machado MD PhD Unavailable [phone] Santiago Gilbert MD Unavailable [phone] Reason for Visit * Diagnostic Imaging (Routine) - Closed Specialty Diagnoses / Procedures Referred By Vijaya simpson Referred To Contact Diagnoses BRCA2 gene mutation positive in female Procedures US Transvaginal US Pelvis Complete Montse Thompson MD Phone: tel: fax: [facility] (All Locations) Referral ID Status Reason Start Date Expiration Date Visits Re quested Visits Authorized [id number] Closed 10/20/2018 04/30/2020 1 1 Encounter Details Date Type Department Care Team (Latest Contact Info) Description 10/31/2018 7:50 AM CDT - 10/31/2018 11:59 PM CDT Hospital Encounter [facility] [address] [place] [address] Montse Thompson MD [address] [facility] [phone] [place] [address] BRCA2 gene mutation positive in female Discharge [...] on file 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 Electronically signed by: Tomas Landry M.D. Narrative 10/31/2018 9:32 AM CDT [...] female documented in this encounter Care Teams Handicapped Teacher Relationship Specialty Start Date End Date Ravi Smith MD PCP - General 11/04/17 09/27/21 Aft, Kianna Machado MD PhD [address] [place] [address] Surgeon Surgical Oncology 11/22/17 Santiago Gilbert MD [address] [place] [address] Refining Still Operator Gastroenterology 11/22/17 documented as of this encounter
--- OUTSIDE RECORDS SUMMARY | 2024-04-24 14:56 | XMS_ITS | Encounter Summary ---
Author Organization [facility] Healthcare Address [address] [place] [address] Care Team Providers Care Utilities Equipment Repairer Name Role Phone Ravi Smith MD Primary Care Provider [phone] Aft, Kianna Machado MD PhD Unavailable [phone] Santiago Gilbert MD Unavailable [phone] Reason for Visit * Diagnostic Imaging (Routine) - Closed Specialty Diagnoses / Procedures Referred By Vijaya simpson Referred To Contact Diagnoses BRCA2 gene mutation positive in female Procedures US Transvaginal Montse Thompson MD Phone: tel: fax: [facility] (All Locations) Referral ID Status Reason Start Date Expiration Date Visits Re quested Visits Authorized [id number] Closed 11/20/2018 05/31/2020 1 1 Encounter Details Date Type Department Care Team (Latest Contact Info) Description 11/24/2018 12:15 PM CDT Ancillary Procedure [facility] - Ultrasound [address] [facility], 7th Floor, [address] [facility] [place] [address] Montse Thompson MD [address] [facility] [phone] [place] [address] BRCA2 gene mutation positive in female Discharge [...] on file 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
--- OUTSIDE RECORDS SUMMARY | 2024-04-24 14:56 | XMS_ITS | Encounter Summary ---
Author Organization [facility] Address [address] [place] [address] Phone Care Team Providers Care Linux Kernel Developer Name Role Phone Ravi Smith MD Primary Care Provider [phone] Aft, Kianna Machado MD PhD Unavailable [phone] Santiago Gilbert MD Unavailable [phone] Encounter Details Date Type Department Care Team (Late st Contact Info) Description 11/20/2018 Telephone [facility] Obstetrics and Gynecology 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
--- OUTSIDE RECORDS SUMMARY | 2024-04-24 14:56 | XMS_ITS | Encounter Summary ---
Author Organization [facility] Address [address] [place] [address] Phone Care Team Providers Care Vending Mechanic Name Role Phone Hugo Smith MD Primary Care Provider [phone] Aft, Tony Machado MD PhD Unavailable [phone] Santiago Gilbert MD Unavailable [phone] Encounter Details Date Type Department Care Team (Late st Contact Info) Description 10/27/2018 1:10 PM CDT Office Visit [facility] Obstetrics and Gynecology [address] [facility] 13th [place] [address] [place] [address] Montse Thompson MD [address] [facility] [phone] [place] [address] BRCA2 gene mutation positive in female (Primary [...] on file 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 / TONY BUNCH [...] MEDICAL CENTER - 10/30/2018 9:57 AM CDT [facility] results best viewed via link to PDF [facility] Laboratory [place] [address] SURGICAL PATHOLOGY REPORT FINAL Patient Name: ?? ALEAH GERBER Gender: ??F : ??[id number] (Age: 63) Address: ??[address] [place] [address] ??[address] Hospital #: ??[id number] Taken:10/27/2018 Received:10/27/2018 Reported: 10/30/2018 Patient Type: [facility] Ref Lab ?? Service: MEAT HOSTESS Location: [facility] Physician(s): ??Montse Thompson M.D. Diagnosis: A. ??Uterus, [...] Extremely scant fragments of unremarkable endocervical epithelium [facility]/10/29/2018 14:18 By this signature, I [...] o'clock and contains one fragment of soft, pink-toavr tissue measuring 0.4 x 0.3 x 0.2 [...] Surgical Pathology Department at [facility] as part of an ongoing software quality analyst program and in compliance with federally [...] by the Surgical Pathology Department of [facility]. ??It has not been cleared or approved by the U. S. Food and Drug Administration. IMAGES AND SCANNED DOCUMENTS, IF INCLUDED, ONLY VIEWABLE IN PDF VERSION OF REPORT us Premal Ac Thompson MD LAB PATHOLOGY ORDERABLES Final Result PATHOLOGY [facility] 3rd Floor [place], [place] [phone] documented in this encounter Visit Diagnoses Diagnosis [...] 03/23/2020 added in this encounter Care Teams Vending Mechanic Relationship Specialty Start Date End Date Hugo Smith MD PCP - General 11/04/17 09/27/21 Aft, Tony Machado MD PhD [address] [place] [address] Surgeon Surgical Oncology 11/22/17 Santiago Gilbert MD [address] [place] [address] Base Draw Operator Gastroenterology 11/22/17 documented as of this encounter
--- OUTSIDE RECORDS SUMMARY | 2024-04-24 14:56 | XMS_ITS | Encounter Summary ---
Author Organization [facility] Address [address] [place] [address] Phone Care Team Providers Care Cold Strip Feeder Name Role Phone Ravi Smith MD Primary Care Provider [phone] Aft, Kianna Machado MD PhD Unavailable [phone] Santiago Gilbert MD Unavailable [phone] Reason for Visit * Reason Comments OP Infusion * Episode Based Medications (Routine) - Closed Specialty Diagnoses / Procedures Referred By Contac t Referred To Contact Diagnoses Malignant neoplasm of upper-inner quadrant of left breast in female, estrogen receptor negative (HCC) Hypokalemia Hypomagnesemia Procedures IVF Abbi Ventura MD [address] [facility] [address] [place] [address] Phone: tel: fax: [facility] Oncology [address] [place] [address] Phone: tel: fax: Referral ID Status Reason Start Date Expiration Date Visits Re quested Visits Authorized [id number] Closed 03/14/2018 10/22/2018 99 99 Encounter Details Date Type Department Care Team (Late st Contact Info) Description 10/22/2018 1:30 PM CDT Infusion 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 Gender Identity Not on file Sexual [...] CDT) Magnesium 2.0 1.4 - 2.5 mg/dL [facility] Blood specimen (specimen) 11/05/2018 1:12 PM CDT 11/05/2018 1:16 PM CDT us Abbi Ventura MD LAB BLOOD ORDERABLES Final Resul t [facility] Department [place] [address] documented in this encounter Visit Diagnoses Diagnosis [...] 11/05/2018 documented in this encounter Care Teams Cold Strip Feeder Relationship Specialty Start Date End Date Ravi Smith MD PCP - General 11/04/17 09/27/21 Aft, Kianna Machado MD PhD [address] [place] [address] Surgeon Surgical Oncology 11/22/17 Santiago Gilbert MD [address] [place] [address] Printed Circuit Layout Taper Gastroenterology 11/22/17 documented as of this encounter
--- OUTSIDE RECORDS SUMMARY | 2024-04-24 14:56 | XMS_ITS | Encounter Summary ---
Author Organization [facility] Address [address] [place] [address] Care Team Providers Care Mainspring Strip Inspector Name Role Phone Ravi Smith MD Primary Care Provider [phone] Aft, Kianna Machado MD PhD Unavailable [phone] Santiago Gilbert MD Unavailable [phone] Dmitry Sanderson MD Unavailable [phone] Abbi Ventura MD Unavailable Montse Thompson MD Unavailable Lela Hardy MD PhD Unavailable [phone] Aft, Kianna Machado MD PhD Unavailable [phone] Encounter Details Date Type Department Care Team (Late st Contact Info) Description 12/26/2018 4:00 PM CDT Treatment [facility] Radiation Oncology [address] [place] [address] Advanced Medicine [facility] [place] [address] Lela Hardy MD PhD [address] [facility] [address] [place], [place] [id number] Discharge Disposition: Discharge to home or self [...] filedocumented in this encounter Care Teams Mainspring Strip Inspector Relationship Specialty Start Date End Date Ravi Smith MD PCP - General 11/04/17 09/27/21 Aft, Kianna Machado MD PhD [address] [place] [address] Surgeon Surgical Oncology 11/22/17 Santiago Gilbert MD [address] [place] [address] Pin Inserter Gastroenterology 11/22/17 Dmitry Sanderson MD [address] [place] [address] Referring Physician Colon and Rectal Surgery 12/03/1805/06 Abbi Ventura MD [address] [facility] [address] [place] [address] Medical Oncologist/Production Finisher Medical Oncology 12/03/18 Montse Thompson MD [address] [place] [address] Consulting Physician Gynecologic Oncology 12/03/18 Lela Hardy MD PhD [address] [facility] [address] [place] [address] Radiation Oncologist Radiation Oncology 12/23/18 Aft, Kianna Machado MD PhD [address] [facility] [address] [place] [address] Surgeon Surgical Oncology 12/23/18 09/17/21 documented as of this encounter
--- OUTSIDE RECORDS SUMMARY | 2024-04-24 14:57 | XMS_ITS | Encounter Summary ---
Author Organization [facility] Address [address] [place] [address] Phone Care Team Providers Care Tree Trimmer Name Role Phone Ravi Smith MD Primary Care Provider [phone] Aft, Kianna Machado MD PhD Unavailable [phone] Santiago Gilbert MD Unavailable [phone] Encounter Details Date Type Department Care Team (Late st Contact Info) Description 10/01/2018 Orders Only [facility] Oncology [address] [place] [address] Abbi Ventura MD 10 [facility] [address] [place] [address] Malignant neoplasm of descending colon (CMS/HCC) (Primary [...] file 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 Gender Identity Not on file Sexual Orientation Not on file documented as of this encounter Plan of Treatment Not on file documented as of this encounter Results * Magnesium (10/02/2018 9:45 AM CDT) Magnesium 1.6 1.4 - 2.5 mg/dL [facility] Blood specimen (specimen) 10/02/2018 9:45 AM CDT 10/02/2018 9:57 AM CDT Narrative [facility] - 10/02/2018 10:19 AM CDT us Abbi Ventura MD LAB BLOOD ORDERABLES Final Resul t [facility] One [facility] Department [place] [address] * Basic metabolic panel (10/02/2018 9:45 AM CDT) Pathologist [facility] Sodium 142 135 - 145 mmol/L [facility] Potassium, pl 3.8 3.3 - 4.9 mmol/L [facility] Chloride 106 97 - 110 mmol/L [facility] CO2 27 22 - 32 mmol/L [facility] Anion gap 9 2 - 15 mmol/L [facility] BUN 14 8 - 25 mg/dL [facility] Creatinine 1.06 0.60 - 1.10 mg/dL [facility] Glucose 134 70 - 199 mg/dL [facility] 2017. Calcium 9.4 8.5 - 10.3 mg/dL [facility] Blood specimen (specimen) 10/02/2018 9:45 AM CDT 10/02/2018 9:57 AM CDT Narrative [facility] - 10/02/2018 10:26 AM CDT us Abbi Ventura MD LAB BLOOD ORDERABLES Final Resul t [facility] [address] [facility] Department [place] [address] documented in this encounter Visit Diagnoses Diagnosis [...] (HCC) documented in this encounter Care Teams Tree Trimmer Relationship Specialty Start Date End Date Ravi Smith MD PCP - General 11/04/17 09/27/21 Aft, Kianna Machado MD PhD [address] [place] [address] Surgeon Surgical Oncology 11/22/17 Santiago Gilbert MD [address] [place] [address] Technical Writer Gastroenterology 11/22/17 documented as of this encounter
--- OUTSIDE RECORDS SUMMARY | 2024-04-24 14:57 | XMS_ITS | Encounter Summary ---
Author Organization [facility] Address [address] [place] [address] Phone Care Team Providers Care Postdoctoral Fellow Name Role Phone Ravi Smith MD Primary Care Provider [phone] Aft, Kianna Machado MD PhD Unavailable Santiago Gilbert MD Unavailable [phone] Reason for Visit * Reason Comments OP Infusion * Episode Based Medications (Routine) - Closed Specialty Diagnoses / Procedures Referred By Contac t Referred To Contact Diagnoses Malignant neoplasm of upper-inner quadrant of left breast in female, estrogen receptor negative (HCC) Hypokalemia Hypomagnesemia Procedures IVF Abbi Ventura MD 10 [facility] [address] [place] [address] Phone: tel: fax: [facility] Oncology [address] [place] [address] Phone: tel: fax: Referral ID Status Reason Start Date Expiration Date Visits Re quested Visits Authorized [id number] Closed 03/14/2018 10/22/2018 99 99 Encounter Details Date Type Department Care Team (Late st Contact Info) Description 10/02/2018 11:00 AM CDT Infusion [facility] Oncology [address] [place] [id number] Hypomagnesemia (Primary Dx); Hypokalemia; Malignant neoplasm of [...] file 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
--- OUTSIDE RECORDS SUMMARY | 2024-04-24 14:57 | XMS_ITS | Encounter Summary ---
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
--- OUTSIDE RECORDS SUMMARY | 2024-04-24 14:57 | XMS_ITS | Encounter Summary ---
Author Organization [facility] Address [address] [place] [address] Care Team Providers Care Merchandising Coordinator Name Role Phone Ravi Smith MD Primary Care Provider [phone] Kianna Bunch MD PhD Unavailable [phone] Santiago Gilbert MD Unavailable [phone] Encounter Details Date Type Department Care Team (Late st Contact Info) Description 08/30/2018 Orders Only [facility] [address] [place] [address] Neto Ibarra, RN Social History Tobacco Use Types Packs/Day Years Used Date Smoking Tobacco: Former Cigarettes 2015 Smokeless Tobacco: Never Alcohol Use Standard Drinks/Week Comments Yes 0 (1 standard drink = 0.6 oz pur e alcohol) socially Comments No Sex and Gender Information Value Date Recorded Sex Assigned at Not on file 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
--- OUTSIDE RECORDS SUMMARY | 2024-04-24 14:57 | XMS_ITS | Encounter Summary ---
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, estrogen receptor negative (HCC) Procedures MRI Spine Cervical and Thoracic W WO Contrast Trena Obando MD Phone: tel: fax: [address] [address] Referral ID Status Reason Start Date Expiration Date Visits Re quested Visits Authorized [id number] Closed 08/14/2018 09/28/2018 1 1 Reason for Visit * Diagnostic Imaging (Routine) - Closed Specialty Diagnoses / Procedures Referred By Contac t Referred To Contact Radiology Diagnoses 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, estrogen receptor negative (HCC) Procedures MRI Spine Cervical and Thoracic W WO Contrast Trena Obando MD Phone: tel: fax: [facility] [address] [facility] [place] [address] Referral ID Status Reason Start Date Expiration Date Visits Re quested Visits Authorized [id number] Closed 08/14/2018 09/28/2018 1 1 Encounter Details Date Type Department Care Team (Latest Contact Info) Description 08/30/2018 1:04 PM CDT - 08/30/2018 11:59 PM CDT Hospital Encounter [facility] [address] [place] [address] Trena Obando MD [address] [place] [address] Malignant neoplasm of descending colon [...] on file 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 Gender Identity Not on file Sexual Orientation Not on file documented as of this encounter Medications at Time of Discharge ALPRAZolam (XANAX) 0.25 mg tablet Take 1 tablet (0.25 mg total) by mouth 3 (three) times a day as needed for anxiety 11/07/2017 al & mag hydroxide simethicone-diph enhydramine-lido eriberto-nystatin (MAGIC MOUTHWASH) suspension 5-2-1-1Indicatio ns:Chemotherapy- Induced Mucositis Swish and swallow 10 [...] 08/30/2018 documented in this encounter Care Teams Data Management Manager Relationship Specialty Start Date End Date Ravi Smith MD PCP - General 11/04/17 09/27/21 Aft, Kianna Machado MD PhD [address] [place] [address] Surgeon Surgical Oncology 11/22/17 Santiago Gilbert MD [address] [place] [address] Technical Solutions Consultant Gastroenterology 11/22/17 documented as of this encounter
--- OUTSIDE RECORDS SUMMARY | 2024-04-24 14:57 | XMS_ITS | Encounter Summary ---
Author Organization [facility] Address [address] [place] [address] Phone Care Team Providers Care Transit Bus Operator Name Role Phone Ravi Smith MD Primary Care Provider [phone] Aft, Kianna Machado MD PhD Unavailable [phone] Santiago Gilbert MD Unavailable [phone] Reason for Visit * Reason Comments OP Infusion * Episode Based Medications (Routine) - Closed Specialty Diagnoses / Procedures Referred By Contac t Referred To Contact Diagnoses Malignant neoplasm of upper-inner quadrant of left breast in female, estrogen receptor negative (HCC) Hypokalemia Hypomagnesemia Procedures IVF Abbi Ventura MD 10 [facility] [address] [place] [address] Phone: tel: fax: [facility] Oncology [address] [place] [address] Phone: tel: fax: Referral ID Status Reason Start Date Expiration Date Visits Re quested Visits Authorized [id number] Closed 03/14/2018 10/22/2018 99 99 Encounter Details Date Type Department Care Team (Late st Contact Info) Description 10/09/2018 1:15 PM CDT Infusion [facility] Oncology [address] [place] [phone] Hypomagnesemia (Primary Dx); Hypokalemia; Malignant neoplasm [...] file 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
--- OUTSIDE RECORDS SUMMARY | 2024-04-24 14:57 | XMS_ITS | Encounter Summary ---
Author Organization [facility] Address [address] [place] [address] Phone Care Team Providers Care Plate Finisher Name Role Phone Ravi Smith MD Primary Care Provider [phone] Aft, Kianna Machado MD PhD Unavailable [phone] Santiago Gilbert MD Unavailable [phone] Encounter Details Date Type Department Care Team (Late st Contact Info) Description 08/28/2018 Orders Only [facility] Neuro Muscle [address] [facility] Advanced Medicine 6th [place] [address] [place] [address] Nelia Chacko MD [address] 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
--- OUTSIDE RECORDS SUMMARY | 2024-04-24 14:57 | XMS_ITS | Encounter Summary ---
Author Organization [facility] Address [address] [place] [address] Phone Care Team Providers Care Rubber Goods Supervisor Name Role Phone Ravi Smith MD Primary Care Provider [phone] Aft, Kianna Machado MD PhD Unavailable [phone] Santiago Gilbert MD Unavailable [phone] Reason for Referral * Consultation (Routine) - Closed Specialty Diagnoses / Procedures Referred By Contronny t Referred To Contact Pulmonary Disease / Pulmonology Diagnoses Other acute pulmonary embolism without acute cor pulmonale (HCC) Abbi Ventura MD Phone: tel: fax: Corwin Weaver MD Phone: tel: fax: Referral ID Status Reason Start Date Expiration Date V isits Requested Visits Authorized [id number] Closed Specialty Services Required 10/02/2018 04/12/2020 1 1 Question Answer Please select the performing region: [facility] (All Locations) [167] # of visits: 1 Comments Please see pt for COPD and low O2 sats Encounter Details Date Type Department Care Team (Late st Contact Info) Description 10/02/2018 Orders Only [facility] Oncology [address] [place] [address] Abbi Ventura MD 10 [facility] [address] [place] [address] Other acute pulmonary embolism without acute cor [...] file Legal 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
--- OUTSIDE RECORDS SUMMARY | 2024-04-24 14:57 | XMS_ITS | Encounter Summary ---
Author Organization [facility] Address [address] [place] [address] Phone Care Team Providers Care Business Mgr Name Role Phone Ravi Smith MD Primary Care Provider [phone] Aft, Kianna Machado MD PhD Unavailable [phone] Santiago Gilbert MD Unavailable [phone] Encounter Details Date Type Department Care Team (Latest Contact Info) Description 10/15/2018 9:30 AM CDT Clinical Support 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 Current Interpretive Data was last revised on 2017. Imm gran pct 0.3 % [facility] Comment: Interpretive Data Percent cell count reference ranges are not reported, since discordance with absolute values may lead to misinterpretation of CBC data. Current Interpretive Data was last revised on 2017. Lymphocyte pct 14.8 % [facility] Comment: Interpretive Data Percent cell count reference ranges are not reported, since discordance with absolute values may lead to misinterpretation of CBC data. Current Interpretive Data was last revised on 2017. Monocyte pct 6.5 % [facility] Comment: Interpretive Data Percent cell [...] revised on 2017. Basophil pct 0.5 % [facility] Comment: Interpretive Data Percent cell count reference ranges are not reported, since discordance with absolute values may lead to misinterpretation of CBC data. Current Interpretive Data was last revised on 2017. Blood specimen (specimen) 10/15/2018 10:00 AM CDT 10/15/2018 10:08 AM CDT Narrative [facility] - 10/15/2018 10:10 AM CDT us Abbi Ventura MD LAB BLOOD ORDERABLES Final Resul t [facility] One [facility] Department [place] [address] * (ABNORMAL) CBC with auto differential (10/15/2018 10:00 AM CDT) WBC 5.8 3.8 - 9.9 K/cumm [facility] Hgb 9.0(L) 11.9 - 15.5 g/dL [facility] Hct 28.3(L) 35.6 - 45.5 % [facility] Plt 154 150 - 400 K/cumm [facility] MPV 9.3 9.1 - 12.3 fL [facility] RBC 2.79(L) 3.90 - 5.20 M/cumm [facility] MCV 101.4(H) 81.3 - 96.4 fL [facility] MCH 32.3 27.1 - 33.3 pg [facility] MCHC 31.8(L) 32.3 - 35.7 g/dL [facility] RDW CV 13.2 11.1 - 14.9 % [facility] RDW SD 49.4(H) 35.7 - 48.1 fL [facility] NRBC abs 0.00 0.00 - 0.01 K/cumm [facility] Blood specimen (specimen) 10/15/2018 10:00 AM CDT 10/15/2018 10:08 AM CDT Narrative [facility] - 10/15/2018 10:10 AM CDT Abbi Ventura MD LAB BLOOD ORDERABLES Final Resul t [facility] One [facility] Department [place] [address] * Comprehensive metabolic panel (10/15/2018 10:00 AM CDT) Sodium 141 135 - 145 mmol/L [facility] Potassium, pl 4.1 3.3 - 4.9 mmol/L [facility] Chloride 110 97 - 110 mmol/L [facility] CO2 24 22 - 32 mmol/L [facility] Anion gap 8 2 - 15 mmol/L [facility] BUN 19 8 - 25 mg/dL [facility] Creatinine 0.95 0.60 - 1.10 mg/dL [facility] Glucose 165 70 - 199 mg/dL [facility] [...] Calcium 9.3 8.5 - 10.3 mg/dL [facility] Bilirubin, total 0.3 0.1 - 1.2 mg/dL [facility] Protein, pl 6.5 6.5 - 8.5 g/dL [facility] Albumin 3.8 3.5 - 5.0 g/dL [facility] Alk phos 62 40 - 130 Units/L [facility] ALT 12 7 - 45 Units/L [facility] AST 18 10 - 45 Units/L [facility] Blood specimen (specimen) 10/15/2018 10:00 AM CDT 10/15/2018 10:08 AM CDT Narrative [facility] - 10/15/2018 10:26 AM CDT Abbi Ventura MD LAB BLOOD ORDERABLES Final Resul t Performing Organization Address [facility] de Phone Number [facility] [place] [address] * CEA (10/15/2018 10:00 AM CDT) CEA 2.3 <=5.0 ng/mL [facility] Comment: Interpretative Data: Reference Range: [...] AM CDT 10/15/2018 11:21 AM CDT Narrative [facility] - 10/15/2018 11:57 AM CDT us Abbi Ventura MD LAB BLOOD ORDERABLES Final Resul t Performing Organization Address [facility] de Phone Number [facility] Department [place] [address] documented in this encounter Visit Diagnoses Diagnosis 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
--- OUTSIDE RECORDS SUMMARY | 2024-04-24 14:57 | XMS_ITS | Encounter Summary ---
Author Organization [facility] Address [address] [place] [address] Phone Care Team Providers Care Analysis Specialist Name Role Phone Ravi Smith MD Primary Care Provider [phone] Aft, Kianna Machado MD PhD Unavailable [phone] Santiago Gilbert MD Unavailable [phone] Encounter Details Date Type Department Care Team (Late st Contact Info) Description 08/27/2018 Orders Only [facility] [address] [place] [address] Abbi Ventura MD [address] [facility] [address] [place] [address] 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) Social History Tobacco Use Types Packs/Day Years Used Date Smoking Tobacco: Former Cigarettes 2015 Smokeless Tobacco: Never Alcohol Use Standard Drinks/Week Comments Yes 0 (1 standard drink = 0.6 oz pur e alcohol) socially Comments No Sex and Gender Information Value Date Recorded Sex Assigned at Not on file 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 Gender Identity Not on file Sexual Orientation Not on file documented as of this encounter Plan of Treatment Not on file documented as of this encounter Results * CEA (10/15/2018 10:00 AM CDT) CEA 2.3 <=5.0 ng/mL [facility] Comment: Interpretative Data: Reference Range: [...] AM CDT 10/15/2018 11:21 AM CDT Narrative [facility] - 10/15/2018 11:57 AM CDT us Abbi Ventura MD LAB BLOOD ORDERABLES Final Resul t [facility] One [facility] Department [place] [address] * Comprehensive metabolic panel (10/15/2018 10:00 AM CDT) Sodium 141 135 - 145 mmol/L [facility] Potassium, pl 4.1 3.3 - 4.9 mmol/L [facility] Chloride 110 97 - 110 mmol/L [facility] CO2 24 22 - 32 mmol/L [facility] Anion gap 8 2 - 15 mmol/L [facility] BUN 19 8 - 25 mg/dL [facility] Creatinine 0.95 0.60 - 1.10 mg/dL [facility] Glucose 165 70 - 199 mg/dL [facility] Comment: Interpretive Data Fasting glucose [...] 2017. Calcium 9.3 8.5 - 10.3 mg/dL [facility] Bilirubin, total 0.3 0.1 - 1.2 mg/dL [facility] Protein, pl 6.5 6.5 - 8.5 g/dL [facility] Albumin 3.8 3.5 - 5.0 g/dL [facility] Alk phos 62 40 - 130 Units/L [facility] ALT 12 7 - 45 Units/L [facility] AST 18 10 - 45 Units/L [facility] Blood specimen (specimen) 10/15/2018 10:00 AM CDT 10/15/2018 10:08 AM CDT Narrative [facility] - 10/15/2018 10:26 AM CDT us Abbi Ventura MD LAB BLOOD ORDERABLES Final Resul t [facility] One [facility] Department [place] [address] * (ABNORMAL) CBC with auto differential (10/15/2018 10:00 AM CDT) WBC 5.8 3.8 - 9.9 K/cumm [facility] Hgb 9.0(L) 11.9 - 15.5 g/dL [facility] Hct 28.3(L) 35.6 - 45.5 % [facility] Plt 154 150 - 400 K/cumm [facility] MPV 9.3 9.1 - 12.3 fL [facility] RBC 2.79(L) 3.90 - 5.20 M/cumm [facility] MCV 101.4(H) 81.3 - 96.4 fL [facility] MCH 32.3 27.1 - 33.3 pg [facility] MCHC 31.8(L) 32.3 - 35.7 g/dL [facility] RDW CV 13.2 11.1 - 14.9 % [facility] RDW SD 49.4(H) 35.7 - 48.1 fL [facility] NRBC abs 0.00 0.00 - 0.01 K/cumm [facility] Blood specimen (specimen) 10/15/2018 10:00 AM CDT 10/15/2018 10:08 AM CDT Narrative [facility] - 10/15/2018 10:10 AM CDT us Abbi Ventura MD LAB BLOOD ORDERABLES Final Resul t [facility] One [facility] Department [place] [address] documented in this encounter Visit Diagnoses Diagnosis [...] 10/15/2018 documented in this encounter Care Teams Analysis Specialist Relationship Specialty Start Date End Date Ravi Smith MD PCP - General 11/04/17 09/27/21 Aft, Kianna Machado MD PhD [address] [place] [address] Surgeon Surgical Oncology 11/22/17 Santiago Gilbert MD [address] [place] [address] Human Resources Vice President Gastroenterology 11/22/17 documented as of this encounter
--- OUTSIDE RECORDS SUMMARY | 2024-04-24 14:57 | XMS_ITS | Encounter Summary ---
Author Organization [facility] Address [address] [place] [address] Phone Care Team Providers Care Train System Operator Name Role Phone Ravi Smith MD Primary Care Provider [phone] Aft, Kianna Machado MD PhD Unavailable [phone] Santiago Gilbert MD Unavailable Encounter Details Date Type Department Care Team (Latest Contact Info) Description 10/02/2018 9:45 AM CDT Clinical Support [facility] Oncology [address] [place] [address] Malignant neoplasm of descending colon (CMS/HCC); Malignant [...] on file 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 Gender Identity Not on file Sexual [...] CDT) Magnesium 1.6 1.4 - 2.5 mg/dL [facility] Blood specimen (specimen) 10/02/2018 9:45 AM CDT 10/02/2018 9:57 AM CDT Narrative [facility] - 10/02/2018 10:19 AM CDT us Abbi Ventura MD LAB BLOOD ORDERABLES Final Resul t [facility] One [facility] Department [place] [address] * Basic metabolic panel (10/02/2018 9:45 AM CDT) Pathologist [facility] Sodium 142 135 - 145 mmol/L [facility] Potassium, pl 3.8 3.3 - 4.9 mmol/L [facility] Chloride 106 97 - 110 mmol/L [facility] CO2 27 22 - 32 mmol/L [facility] Anion gap 9 2 - 15 mmol/L [facility] BUN 14 8 - 25 mg/dL [facility] Creatinine 1.06 0.60 - 1.10 mg/dL [facility] Glucose 134 70 - 199 mg/dL [facility] [...] 2017. 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
--- OUTSIDE RECORDS SUMMARY | 2024-04-24 14:57 | XMS_ITS | Encounter Summary ---
Author Organization 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
--- OUTSIDE RECORDS SUMMARY | 2024-04-24 14:57 | XMS_ITS | Encounter Summary ---
Author Organization [facility] Address [address] [place] [address] Phone Care Team Providers Care Fixed Income Portfolio Manager Name Role Phone Ravi Smith MD Primary Care Provider [phone] Aft, Kianna Machado MD PhD Unavailable [phone] Santiago Gilbert MD Unavailable [phone] Reason for Visit * Reason Onset Date Comments Med Management 08/28/2018 Encounter Details Date Type Department Care Team (Late st Contact Info) Description 08/28/2018 Telephone [facility] [address] [facility] 6th [place] [address] [place] [address] Danielle Spencer Med Management Social History Tobacco Use Types Packs/Day Years Used Date Smoking Tobacco: Former Cigarettes 2015 Smokeless Tobacco: Never Alcohol Use Standard Drinks/Week Comments Yes 0 (1 standard drink = 0.6 oz pur e alcohol) socially Comments No Sex and Gender Information Value Date Recorded Sex Assigned at Not on file 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 * Telephone Encounter - JohannaDanielle gil - 08/28/2018 3:07 PM CDT Ms Gerber LM that she is scheduled for an MRI on Saturday and she thinks Dr. Obando was planning to send some valium for her to take prior to the exam. She has not received it in the mail and she isworried. [phone]. documented in this encounter Plan of Treatment Not on file documented as of this encounter Visit Diagnoses Not on filedocumented in this encounter Care Teams Fixed Income Portfolio Manager Relationship Specialty Start Date End Date Ravi Smith MD PCP - General 11/04/17 09/27/21 Aft, Kianna Machado MD PhD [address] [place] [address] Surgeon Surgical Oncology 11/22/17 Santiago Gilbert MD [address] [place] [address] Hoop Riveter Gastroenterology 11/22/17 documented as of this encounter
--- OUTSIDE RECORDS SUMMARY | 2024-04-24 14:57 | XMS_ITS | Encounter Summary ---
Author Organization [facility] Address [address] [place] [address] Phone Care Team Providers Care Barrel Scraper Name Role Phone Ravi Smith MD Primary Care Provider [phone] Aft, Kianna Machado MD PhD Unavailable [phone] Santiago Gilbert MD Unavailable [phone] Encounter Details Date Type Department Care Team (Latest Contact Info) Description 10/09/2018 10:00 AM CDT Clinical Support [facility] [address] [place] [address] Malignant neoplasm of upper-inner quadrant of left [...] file 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 Gender Identity Not on file Sexual [...] CDT) Sodium 144 135 - 145 mmol/L [facility] Potassium, pl 3.8 3.3 - 4.9 mmol/L [facility] Chloride 109 97 - 110 mmol/L [facility] CO2 26 22 - 32 mmol/L [facility] Anion gap 9 2 - 15 mmol/L [facility] BUN 15 8 - 25 mg/dL [facility] Creatinine 0.87 0.60 - 1.10 mg/dL [facility] Glucose 135 70 - 199 mg/dL [facility] 2017. Calcium 9.2 8.5 - 10.3 mg/dL [facility] Blood specimen (specimen) 10/09/2018 10:44 AM CDT 10/09/2018 10:47 AM CDT Narrative [facility] - 10/09/2018 11:13 AM CDT us Abbi Ventura MD LAB BLOOD ORDERABLES Final Resul t [facility] [place] [address] * Magnesium (10/09/2018 10:44 AM CDT) Magnesium 1.5 1.4 - 2.5 mg/dL [facility] Blood specimen (specimen) 10/09/2018 10:44 AM CDT 10/09/2018 10:47 AM CDT Narrative [facility] - 10/09/2018 11:09 AM CDT us Abbi Ventura MD LAB BLOOD ORDERABLES Final Resul t Performing Organization Address [facility] Co de Phone Number [facility] [place] [address] documented in this encounter Visit Diagnoses Diagnosis Malignant neoplasm of upper-inner quadrant of left breast in female, 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
--- OUTSIDE RECORDS SUMMARY | 2024-04-24 14:57 | XMS_ITS | Encounter Summary ---
Author Organization 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
--- OUTSIDE RECORDS SUMMARY | 2024-04-24 14:57 | XMS_ITS | Encounter Summary ---
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 Ventura, Aleah Gerber, 59 Went to [facility] ER on 09/25/18 for COPD exacerbation. Attached are the records. She sent below message through [employer] today. Magnesium was 1.1 on arrival and [...] weeks surgery will need to be discussed [phone] Aleah Gerber 1955 10/01/18 Potassium and magnesium [...] on filedocumented in this encounter Care Teams Drop Pit Worker Relationship Specialty Start Date End Date Ravi Smith MD PCP - General 11/04/17 09/27/21 Aft, Kianna Machado MD PhD [address] [place] [address] Surgeon Surgical Oncology 11/22/17 Santiago Gilbert MD [address] [place] [address] Accounting Manager Assistant Controller Gastroenterology 11/22/17 documented as of this encounter
--- OUTSIDE RECORDS SUMMARY | 2024-04-24 14:57 | XMS_ITS | Encounter Summary ---
Author Organization [facility] Address [address] [place] [address] Phone Care Team Providers Care Sleever Name Role Phone Ravi Smith MD Primary Care Provider [phone] Aft, Kianna Machado MD PhD Unavailable [phone] Santiago Gilbert MD Unavailable [phone] Encounter Details Date Type Department Care Team (Late st Contact Info) Description 10/02/2018 Orders Only [facility] Oncology [address] [place] [address] Abbi Ventura MD 10 [facility] [address] [place] [address] Social History Tobacco Use Types Packs/Day Years [...] on file 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
--- OUTSIDE RECORDS SUMMARY | 2024-04-24 14:57 | XMS_ITS | Encounter Summary ---
Author Organization [facility] Address [address] [place] [address] Phone Care Team Providers Care Composition Board Press Operator Name Role Phone Ravi Smith MD Primary Care Provider [phone] Aft, Kianna Machado MD PhD Unavailable [phone] Santiago Gilbert MD Unavailable Encounter Details Date Type Department Care Team (Late st Contact Info) Description 10/02/2018 Orders Only [facility] Oncology [address] [place] [address] Abbi Ventura MD 10 [facility] [address] [place] [address] Malignant neoplasm of upper-inner quadrant of left [...] CDT) Magnesium 1.5 1.4 - 2.5 mg/dL [facility] Blood specimen (specimen) 10/09/2018 10:44 AM CDT 10/09/2018 10:47 AM CDT Narrative [facility] - 10/09/2018 11:09 AM CDT us Abbi Ventura MD LAB BLOOD ORDERABLES Final Resul t [facility] One [facility] [place] [address] * Basic metabolic panel (10/09/2018 10:44 AM CDT) Pathologist [facility] Sodium 144 135 - 145 mmol/L [facility] Potassium, pl 3.8 3.3 - 4.9 mmol/L [facility] Chloride 109 97 - 110 mmol/L [facility] CO2 26 22 - 32 mmol/L [facility] Anion gap 9 2 - 15 mmol/L [facility] BUN 15 8 - 25 mg/dL [facility] Creatinine 0.87 0.60 - 1.10 mg/dL [facility] Glucose 135 70 - 199 mg/dL [facility] [...] 2017. Calcium 9.2 8.5 - 10.3 mg/dL [facility] Blood specimen (specimen) 10/09/2018 10:44 AM CDT 10/09/2018 10:47 AM CDT Narrative [facility] - 10/09/2018 11:13 AM CDT us Abbi Ventura MD LAB BLOOD ORDERABLES Final Resul t [facility] One [facility] [place] [address] documented in this encounter Visit Diagnoses Diagnosis [...] colon documented in this encounter Care Teams Composition Board Press Operator Relationship Specialty Start Date End Date Ravi Smith MD PCP - General 11/04/17 09/27/21 Aft, Kianna Machado MD PhD [address] [place] [address] Surgeon Surgical Oncology 11/22/17 Santiago Gilbert MD [address] [place] [address] Contact Center Manager Gastroenterology 11/22/17 documented as of this encounter
--- OUTSIDE RECORDS SUMMARY | 2024-04-24 14:57 | XMS_ITS | Encounter Summary ---
Author Organization [facility] Address [address] [place] [address] Phone Care Team Providers Care Support Manager Name Role Phone Ravi Smith MD Primary Care Provider [phone] Aft, Kianna Machado MD PhD Unavailable [phone] Santiago Gilbert MD Unavailable [phone] Reason for Referral * Pulmonology (Routine) - Closed Specialty Diagnoses / Procedures Referred By Contac t Referred To Contact Diagnoses Chronic obstructive pulmonary disease, unspecified COPD type (HCC) Procedures Pulmonary Function Test -[facility] Adult PFT Lab- CAM-8D; Spirometry with Bronchodilator, Spirometry, Oxygen Assessment Titration, DLCO, Lung Volumes, ABG; Pleth with Airway Resistance; Room Air ABG; Spirometry Cristobal Dong MD Phone: tel: fax: [facility] (All Locations) Referral ID Status Reason Start Date Expiration Date Visits Re quested Visits Authorized [id number] Closed 10/07/2018 02/24/2019 99 99 * Diagnostic Imaging (Routine) - Closed Specialty Diagnoses / Procedures Referred By Contac t Referred To Contact Diagnoses Chronic obstructive pulmonary disease, unspecified COPD type (HCC) Procedures XR Chest Pa Lateral 2 Views Cristobal Dong MD Phone: tel: fax: [facility] Referral ID Status Reason Start Date Expiration Date Visits Re quested Visits Authorized [id number] Closed 10/07/2018 04/17/2020 1 1 Encounter Details Date Type Department Care Team (Late st Contact Info) Description 10/07/2018 Orders Only [facility] Pulmonary [address] [facility] Medicine 8th [place] [address] [place] [address] Cristobal Dong MD [address] [facility] [address] [place], [place] [id number] Chronic obstructive pulmonary disease, unspecified COPD type [...] file 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 Gender Identity Not on file Sexual Orientation Not on file documented as of this encounter Plan of Treatment Not on file documented as of this encounter Results * Pulmonary Function Test - (02/05/2019 10:58 AM CDT) FVC PRED 3.71 0.05 - 9.99 Liters [facility] FVC PRE 3.05 0 - 12 Liters [facility] FVC %PRE PRED 82 0 - 300 % [facility] FVC POST 3.00 0 - 12 Liters [facility] FVC %POST PRED 81 0 - 300 % [facility] FVC %CHNG -2 0 - 300 % [facility] FEV1 PRED 2.89 0.05 - 9.99 Liters [facility] FEV1 PRE 2.33 0 - 12 Liters [facility] FEV1 %PRE PRED 81 0 - 300 % [facility] FEV1 POST 2.29 0 - 12 Liters [facility] FEV1 %POST PRED 79 0 - 300 % [facility] FEV1 %CHNG -1 0 - 300 % [facility] FEV1/FVC PRED 79 1 - 99 % [facility] FEV1/FVC PRE 76 0 - 12 % [facility] FEV1/FVC POST 77 0 - 12 % [facility] FLO70-27% PRED 2.47 0 - 12 L/sec [facility] OHI22-54% PRE 1.95 0 - 12 L/sec [facility] PZJ24-27% %PRE PRED 79 0 - 300 % [facility] JYT35-39% POST 1.93 0 - 12 L/sec [facility] XYJ44-98% %POST PRED 78 0 - 300 % [facility] DPV05-94% %CHNG -1 0 - 300 % [facility] [...] 8 0 - 300 % [facility] SVT106% %CHNG -7 % [facility] PIF PRE [...] TLC PRED 5.79 0.05 - 11.99 Liters [facility] TLC PRE 5.01 0.05 - 11.99 Liters [facility] TLC %PRE PRED 87 0 - 300 % [facility] RV PRED 2.25 0.05 - 9.99 Liters [facility] RV PRE 1.96 0.05 - 9.99 Liters [facility] RV %PRE PRED 87 0 - 300 % [facility] RV/TLC PRED 40 0 - 300 % [facility] RV/TLC PRE 39 0 - 300 % [facility] FRC N2 PRED 2.81 0.05 - 9.99 Liters [facility] FRC PL PRED 3.31 0.05 - 9.99 Liters [facility] FRC PL PRE 2.72 0.05 - 9.99 Liters [facility] FRC PL %PRE PRED 82 0 - 300 % [facility] ERV PRED 1.22 0.05 - 9.99 Liters [facility] ERV PRE 0.75 0.05 - 9.99 Liters [facility] ERV %PRE PRED 62 0 - 300 % [facility] IC PRE 2.29 0.05 - 9.99 Liters [facility] DLCO PRED 27.6 0.05 - 99.99 mL/mmHg/min [facility] DLCO PRE 14.2 mL/mmHg/min [facility] DLCO %PRE PRED 51 0 - 300 % [facility] DL ADJ PRED 27.6 1 - 2 mL/mmHg/min [facility] DL ADJ PRE 15.3 1 - 2 mL/mmHg/min [facility] DL ADJ %PRE PRED 55 0 - 300 % [facility] DLCO/VA PRED 5.05 mL/mHg/min/ L [facility] DLCO/VA PRE 3.60 mL/mHg/min/ L [facility] DLCO/VA %PRE PRED 71 % [facility] DL/VA ADJ PRED 3.75 mL/mHg/min/ L [facility] DL/VA ADJ %PRE PRED 104 % [facility] VA PRE 3.94 Liters [facility] RAW PRED 1.14 cmH2O/L/sec [facility] RAW PRE 2.26 cmH2O/L/sec [facility] RAW %PRE PRED 199 % [facility] GAW PRED 0.794 L/sec/cmH2O [facility] GAW PRE 0.442 L/sec/cmH2O [facility] GAW %PRE PRED 56 % [facility] SRAW PRED 3.76 cmH2O/L/s/L [facility] SRAW PRE 6.76 cmH2O/L/s/L [facility] SRAW %PRE PRED 180 % [facility] SGAW PRED 0.262 L/s/cmH2O/L [facility] SGAW PRE 0.148 L/s/cmH2O/L [facility] SGAW %PRE PRED 57 % [facility] pH POC 7.43 [facility] pCO2 POC 37.0 mmHg [facility] PO2 POC 84.0 mmHg [facility] HCO3(c) POC 24.6 meq/L [facility] BE(B) POC 0.4 [facility] O2Hb POC 95.5 % [facility] COHb POC 1.2 % [facility] A-aDO2 POC 19.0 mmHg [facility] Anatomical Region Laterality Modality PFT 02/05/2019 10:1 3 AM CDT Narrative 02/06/2019 1:09 PM CDT [facility] Division of Pulmonary & Critical Care Medicine [address] [place] [address]; [place] [address]; [place], [place] ??[address]; [phone] Pulmonary Function Laboratory Pulmonary Stress Test Simple/Oxygen Assessment Patient: Aleah Gerber Date: 02/05/2019 Physician: Iker Ht: 69 in ?? Wt: 234 lbs Room: Op Commutator Operator: Mary : 1955 Diagnosis: COPD Time(min) [...] There are no prior chest radiographs at [facility] for comparison. A right internal jugular catheter is in place, tip overlies the superior vena cava.. The heart and mediastinal contours are normal. ??There is no mass or consolidation. ??There is no lymphadenopathy. ??There are no pleural effusions. ??There is no pneumothorax. There is old granulomatous disease. Electronically signed by: Gladys Shehperd M.D. Narrative 02/05/2019 10:29 AM CDT EXAMINATION: 2 view chest radiograph Procedure Note Gladys Shepherd MD - 02/05/2019 EXAMINATION: 2 view chest radiograph IMPRESSION: There are no prior chest radiographs at [facility] for comparison. A right internal [...] (HCC) documented in this encounter Care Teams Support Manager Relationship Specialty Start Date End Date Ravi Smith MD PCP - General 11/04/17 09/27/21 Aft, Kianna Machado MD PhD [address] [place] [address] Surgeon Surgical Oncology 11/22/17 Santiago Gilbert MD [address] [place] [address] Motor Room Controller Gastroenterology 11/22/17 documented as of this encounter
--- OUTSIDE RECORDS SUMMARY | 2024-04-24 14:57 | XMS_ITS | Encounter Summary ---
Author Organization [facility] Address [address] [place] [address] Phone Care Team Providers Care Merchandise Flow Manager Name Role Phone Ravi Smith MD Primary Care Provider [phone] Aft, Kianna Machado MD PhD Unavailable [phone] Santiago Gilbert MD Unavailable [phone] Encounter Details Date Type Department Care Team (Late st Contact Info) Description 10/01/2018 Orders Only 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
--- OUTSIDE RECORDS SUMMARY | 2024-04-24 14:57 | XMS_ITS | Encounter Summary ---
Author Organization [facility] Address [address] [place] [address] Phone Care Team Providers Care Top Dyeing Machine Loader Name Role Phone Ravi Smith MD Primary Care Provider [phone] Aft, Kianna Machado MD PhD Unavailable [phone] Santiago Gilbert MD Unavailable [phone] Encounter Details Date Type Department Care Team (Late st Contact Info) Description 10/02/2018 Orders Only [facility] Oncology [address] [place] [address] Abbi Ventura MD [address] 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
--- OUTSIDE RECORDS SUMMARY | 2024-04-24 14:57 | XMS_ITS | Encounter Summary ---
Author Organization [facility] Address [address] [place] [address] Phone Care Team Providers Care Remedial Project Manager Name Role Phone Ravi Smith MD Primary Care Provider [phone] Aft, Kianna Machado MD PhD Unavailable [phone] Santiago Gilbert MD Unavailable [phone] Reason for Visit * Reason Onset Date Comments Test Results 09/01/[address] ease advise. Encounter Details Date Type Department Care Team (Late st Contact Info) Description 09/01/2018 Telephone [facility] [address] [facility] Advanced Medicine 6th [place] [address] [place] [address] Valencia Redd, RMA Test Results (Test results. 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 Obando in Feb. Pt voices understanding. Discussed with Dr. Obando. * Telephone Encounter - Valencia Redd MA - 09/01/2018 3:[address] Ru[address] Dr. called at 3:28 PM on 09/01/2018 Chief Complaint Patient presents with ??? Results Test results. Please advise. She requests a call back to discuss this at your earliest convenience. Her preferred return phone number is: [phone] (home) Thank you, Valencia Redd MA documented in this encounter Plan of Treatment Not on file documented as of this encounter Visit Diagnoses Not on filedocumented in this encounter Care Teams Remedial Project Manager Relationship Specialty Start Date End Date Ravi Smith MD PCP - General 11/04/17 09/27/21 Aft, Kianna Machado MD PhD [address] [place] [address] Surgeon Surgical Oncology 11/22/17 Santiago Gilbert MD [address] [place] [address] Christian Education Director Gastroenterology 11/22/17 documented as of this encounter
--- OUTSIDE RECORDS SUMMARY | 2024-04-24 14:57 | XMS_ITS | Encounter Summary ---
Author Organization [facility] Address [address] [place] [address] Phone Care Team Providers Care Quarry Plant Crusher Operator Name Role Phone Ravi Smith MD Primary Care Provider [phone] Aft, Kianna Machado MD PhD Unavailable [phone] Santiago Gilbert MD Unavailable [phone] Encounter Details Date Type Department Care Team (Late st Contact Info) Description 10/06/2018 Orders Only [facility] Surgery [address] [facility] Advanced Medicine 5th [place] [address] [place] [address] Aft, Kianna Machado MD PhD [address] [place] [address] Malignant neoplasm of upper-inner quadrant of left [...] on file 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 Gender Identity Not on file Sexual Orientation Not on file documented as of this encounter Plan of Treatment Not on file documented as of this encounter Visit Diagnoses Diagnosis Malignant neoplasm of upper-inner quadrant of left breast in female, estrogen receptor negative (HCC)- Primary documented in this encounter Care Teams Quarry Plant Crusher Operator Relationship Specialty Start Date End Date Ravi Smith MD PCP - General 11/04/17 09/27/21 Aft, Kianna Machado MD PhD [address] [place], [place] [address] Surgeon Surgical Oncology 11/22/17 Santiago Gilbert MD [address] [place] [address] Fittings Tightener Gastroenterology 11/22/17 documented as of this encounter
--- OUTSIDE RECORDS SUMMARY | 2024-04-24 14:58 | XMS_ITS | Encounter Summary ---
Author Organization [facility] Address [address] [place] [address] Phone Care Team Providers Care Senior Health Physics Technician Name Role Phone Ravi Smith MD Primary Care Provider [phone] Aft, Kianna Machado MD PhD Unavailable [phone] Santiago Gilbert MD Unavailable [phone] Encounter Details Date Type Department Care Team (Late st Contact Info) Description 08/11/2018 Orders Only [facility] Oncology [address] [facility] [address] [place] [address] Abbi Ventura MD [address] [facility] [address] [place] [address] Social History Tobacco Use Types Packs/Day Years Used Date Smoking Tobacco: Former Cigarettes 2015 Smokeless Tobacco: Never Alcohol Use Standard Drinks/Week Comments Yes 0 (1 standard drink = 0.6 oz pur e alcohol) socially Comments No Sex and Gender Information Value Date Recorded Sex Assigned at Not on file 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
--- OUTSIDE RECORDS SUMMARY | 2024-04-24 14:58 | XMS_ITS | Encounter Summary ---
Author Organization [facility] Address [address] [place] [address] Phone Care Team Providers Care Technology Advisor Name Role Phone Ravi Smith MD Primary Care Provider [phone] Kianna Bunch MD PhD Unavailable [phone] Santiago Gilbert MD Unavailable [phone] Encounter Details Date Type Department Care Team (Late st Contact Info) Description 08/11/2018 Orders Only [facility] Oncology [address] [place] [address] Fatemeh Zarate, LYDIA Social History Tobacco Use Types Packs/Day Years Used Date Smoking Tobacco: Former Cigarettes 2015 Smokeless Tobacco: Never Alcohol Use Standard Drinks/Week Comments Yes 0 (1 standard drink = 0.6 oz pur e alcohol) socially Comments No Sex and Gender Information Value Date Recorded Sex Assigned at Not on file Legal 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
--- OUTSIDE RECORDS SUMMARY | 2024-04-24 14:58 | XMS_ITS | Encounter Summary ---
Author Organization [facility] Address [address] [place] [address] Care Team Providers Care Physical Therapy Resident Name Role Phone Ravi Smith MD Primary Care Provider [phone] Kianna Bunch MD PhD Unavailable [phone] Santiago Gilbert MD Unavailable Reason for Referral * Diagnostic Imaging (Routine) - Closed Specialty Diagnoses / Procedures Referred By Vijaya simpson Referred To Contact Diagnoses History of breast cancer Procedures US Breast Left Limited Kianna Bunch MD PhD Phone: tel: fax: [address] [address] Referral ID Status Reason Start Date Expiration Date Visits Re quested Visits Authorized [id number] Closed 07/22/2018 01/31/2020 1 1 Reason for Visit * Diagnostic Imaging (Routine) - Closed Specialty Diagnoses / Procedures Referred By Vijaya simpson Referred To Contact Diagnoses History of breast cancer Procedures Diagnostic Mammogram Bilateral [facility] Diagnostic Mammogram Left [address] Kianna Bunch MD PhD Phone: tel: fax: [address] [address] Referral ID Status Reason Start Date Expiration Date Visits Re quested Visits Authorized [id number] Closed 07/22/2018 01/31/2020 1 1 Encounter Details Date Type Department Care Team (Latest Contact Info) Description 08/11/2018 11:44 AM CDT - 08/11/2018 11:59 PM CDT Hospital Encounter [facility] [address] [place] [address] Aft, Kianna Machado MD PhD [address] [place] [address] History of breast cancer Discharge Disposition: Discharge [...] on file 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 Elie Bradley. BREAST PARENCHYMAL [...] left breast was performed by a trained assembly machine set up mechanic and by Dr. Elie Bradley. BREAST PARENCHYMAL [...] left breast was performed by a trained assembly machine set up mechanic and by Dr. Elie Bradley. BREAST PARENCHYMAL [...] left breast was performed by a trained assembly machine set up mechanic and by Dr. Elie Bradley. BREAST PARENCHYMAL [...] breast documented in this encounter Care Teams Physical Therapy Resident Relationship Specialty Start Date End Date Ravi Smith MD PCP - General 11/04/17 09/27/21 Kianna Bunch MD PhD [address] [place] [address] Surgeon Surgical Oncology 11/22/17 Santiago Gilbert MD [address] [place] [address] Plug Drill Operator Gastroenterology 11/22/17 documented as of this encounter
--- OUTSIDE RECORDS SUMMARY | 2024-04-24 14:58 | XMS_ITS | Encounter Summary ---
Author Organization [facility] Address [address] [place] [address] Phone Care Team Providers Care Farm Machine Operator Name Role Phone Ravi Smith MD Primary Care Provider [phone] Aft, Kianna Machado MD PhD Unavailable [phone] Santiago Gilbert MD Unavailable [phone] Encounter Details Date Type Department Care Team (Late st Contact Info) Description 08/11/2018 Orders Only [facility] Oncology [address] [facility] [address] [place] [address] [place] Montoya, ENGRAVING OPERATOR [address] [address] Social History Tobacco Use Types Packs/Day Years Used Date Smoking Tobacco: Former Cigarettes 2015 Smokeless Tobacco: Never Alcohol Use Standard Drinks/Week Comments Yes 0 (1 standard drink = 0.6 oz pur e alcohol) socially Comments No Sex and Gender Information Value Date Recorded Sex Assigned at Not on file Legal 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 Female 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
--- OUTSIDE RECORDS SUMMARY | 2024-04-24 14:58 | XMS_ITS | Encounter Summary ---
Author Organization [facility] Address [address] [place] [address] Phone Care Team Providers Care Research Physician Name Role Phone Ravi Smith MD Primary Care Provider [phone] Aft, Kianna Machado MD PhD Unavailable [phone] Santiago Gilbert MD Unavailable [phone] Reason for Visit * Reason Comments Follow-up Left nipple D/C Encounter Details Date Type Department Care Team (Late st Contact Info) Description 08/11/2018 11:00 AM CDT Office Visit [facility] Surgery [address] 5th [place] [address] [place] [address] Aft, Kianna Machado MD PhD [facility] [place] [address] Nipple discharge in female (Primary Dx) Social History Tobacco Use Types Packs/Day Years Used Date Smoking Tobacco: Former Cigarettes 2015 Smokeless Tobacco: Never Alcohol Use Standard Drinks/Week Comments Yes 0 (1 standard drink = 0.6 oz pur e alcohol) socially Comments No Sex and Gender Information Value Date Recorded Sex Assigned at Not on file 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 Authorizing Provider al & mag hydroxide nljnlmfwxyw-pewfunuzwdoavsm-gewdqjpvo-nystatin (MAGIC MOUTHWASH) suspension 1-1-1-1 Swish and swallow [...] on phone: None Gets together: None Attends rastafari service: None Active member of club or [...] 09/22/2018 added in this encounter Care Teams Research Physician Relationship Specialty Start Date End Date Ravi Smith MD PCP - General 11/04/17 09/27/21 Aft, Kianna Machado MD PhD [address] [place] [address] Surgeon Surgical Oncology 11/22/17 Santiago Gilbert MD [address] [facility] [place], [place] [id number] Warehouse Shipper Gastroenterology 11/22/17 documented as of this encounter
--- OUTSIDE RECORDS SUMMARY | 2024-04-24 14:58 | XMS_ITS | Encounter Summary ---
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, estrogen receptor negative (HCC) Procedures MRI Spine Cervical and Thoracic W WO Contrast Trena Obando MD Phone: tel: fax: [address] [address] Referral ID Status Reason Start Date Expiration Date Visits Re quested Visits Authorized [id number] Closed 08/14/2018 09/28/2018 1 1 * Diagnostic Lab (Routine) - Closed Specialty Diagnoses / Procedures Referred By Vijaya t Referred To Contact Lab Diagnoses Drug-induced polyneuropathy (HCC) Procedures Neuromuscular Testing ([facility]) Trena Obando MD Phone: tel: fax: Referral ID Status Reason Start Date Expiration Date Visits Re quested Visits Authorized [id number] Closed 08/14/2018 02/23/2020 1 1 * Neurology (Routine) - Closed Specialty Diagnoses / Procedures Referred By Contac t Referred To Contact Diagnoses Drug-induced polyneuropathy (HCC) Procedures EMG/NCV -Procedure performed at: [facility] EMG Lab; Clinical Summary: 63 yo woman with breast and colon cancer, s/p oxaliplatin; on XARELTO p/w difficulties walking; Reason for referral or diagnostic question: please evaluate for peripheral neuropath... Trena Obando MD Phone: tel: fax: [facility] (All Locations) Referral ID Status Reason Start Date Expiration Date Visits Re quested Visits Authorized [id number] Closed 08/14/2018 02/23/2020 1 1 Reason for [...] Expiration Date V isits Requested Visits Authorized [id number] Closed Specialty Services Required 05/21/2018 11/30/2019 1 1 Encounter Details Date Type Department Care Team (Latest Contact Info) Description 08/14/2018 9:00 AM CDT Office Visit [facility] Neuro Muscle [address] 6th [place] [address] [place] [address] Trena Obando MD [address] [place] [address] Drug-induced polyneuropathy (CMS/HCC) (Primary Dx); [...] on file Legal 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 female seen today for New Patient. HPI I had the pleasure of seeing Aleah Gerber today in our Neuromuscular clinic at [facility] for initial evaluation of the difficulties in [...] Medications: ? ? al & mag hydroxide tqfxeujfbal-oyyyyevpzcsxrzm-rqttcsnjg-nystatin (MAGIC MOUTHWASH) suspension 1-1-1-1, Swish and swallow [...] file Gets together: Not on file Attends caodaism service: Not on file Active member of [...] [facility] 08/27/2018 11:30 AM Abbi Ventura MD [facility]C [facility] 08/30/2018 1:30 PM [facility] BNMR4 BJ N MRI [facility] Main IMG 02/12/2019 10:30 AM Trena Obando [...] 08/14/2018, Expires: 08/15/2019 EMG/NCV -Procedure performed at: [facility] EMG Lab; Clinical Summary: 63 yo [...] or abnormal cord signal. Dictated by: Gilberto Hernadnez M.D. The radiology attending physician has personally reviewed this study, and had reviewed and/or edited this written report and agrees with it. Electronically signed by: Tomas Miguel M.D. Trena Obando MD IMG MRI PROCEDURES Final Res ult * Aldolase (08/14/2018 11:45 AM CDT) Pathologist [facility] Aldolase 5.4 0.1 - 8.0 Units/L [facility] Blood specimen (specimen) 08/14/2018 11:45 AM CDT 08/14/2018 12:13 PM CDT Narrative [facility] - 08/15/2018 8:12 AM CDT Trena Obando MD LAB BLOOD ORDERABLES Final R esult [facility] Department [place] [address] * (ABNORMAL) Creatine kinase (CK), total (08/14/2018 11:45 AM CDT) CK <20(L) 30 - 200 Units/L [facility] Blood specimen (specimen) 08/14/2018 11:45 AM CDT 08/14/2018 12:13 PM CDT Narrative [facility] - 08/14/2018 1:09 PM CDT Trena Obando MD LAB BLOOD ORDERABLES Final R esult [facility] [place] [address] * (ABNORMAL) IgM (08/14/2018 11:45 AM CDT) Immunoglobulin M 38.0(L) 40.0 - 230.0 mg/dL [facility] Blood specimen (specimen) 08/14/2018 11:45 AM CDT 08/14/2018 12:13 PM CDT Narrative [facility] - 08/14/2018 1:03 PM CDT Trena Obando MD LAB BLOOD ORDERABLES Final R esult Performing Organization Address City/[facility]/ZIP Co de Phone Number [facility] [place] [address] * (ABNORMAL) IgG (08/14/2018 11:45 AM CDT) Immunoglobulin G 425.0(L) 700.0 - 1,600.0 mg/dL [facility] Blood specimen (specimen) 08/14/2018 11:45 AM CDT 08/14/2018 12:13 PM CDT Narrative [facility] - 08/14/2018 1:03 PM CDT Trena Obando MD LAB BLOOD ORDERABLES Final R esult [facility] [place] [address] * IgA (08/14/2018 11:45 AM CDT) Pathologist [facility] Immunoglobulin A 118.0 70.0 - 400.0 mg/dL [facility] Blood specimen (specimen) 08/14/2018 11:45 AM CDT 08/14/2018 12:13 PM CDT Narrative [facility] - 08/14/2018 1:03 PM CDT Trena Obando MD LAB BLOOD ORDERABLES Final R esult [facility] [place] [address] * ZENA qualitative with reflex to ZENA Quantitative (08/14/2018 11:45 AM CDT) [facility] ZENA Negative [facility] Comment: Interpretive Data Normal range for Zena [...] AM CDT 08/14/2018 12:12 PM CDT Narrative [facility] - 08/15/2018 10:48 AM CDT Trena Obando MD LAB BLOOD ORDERABLES Final R esult Performing Organization Address City/[facility]/ZIP Co de Phone Number [facility] [place] [address] * Immunofixation (08/14/2018 11:45 AM CDT) [facility] Immunofixation No monoclonal protein detected. [facility] Blood specimen (specimen) 08/14/2018 11:45 AM CDT 08/14/2018 12:12 PM CDT Narrative [facility] - 08/16/2018 7:12 AM CDT Trena Obando MD LAB BLOOD ORDERABLES Final R esult Performing Organization Address [facility] de Phone Number [facility] [place] [address] * Vitamin E (08/14/2018 11:45 AM CDT) [facility] Tocopherol (Vit E) 6.2 5.5 - 17.0 mg/L [facility] Comment: ADDITIONAL INFORMATION This test was developed and its performance characteristics determined by [facility] in a manner consistent with CLIA requirements. This test has not been cleared or approved by the U.S. Food and Drug Administration. Test Performed by: [facility] [address] [place] [address] Blood specimen (specimen) 08/14/2018 11:45 AM CDT 08/14/2018 12:14 PM CDT Narrative [facility] - 08/19/2018 8:22 AM CDT Trena Obando MD LAB BLOOD ORDERABLES Final R esult Performing Organization Address [facility] de Phone Number [facility] [place] [address] * (ABNORMAL) Vitamin B12 (08/14/2018 11:45 AM CDT) [facility] Vitamin B12 >2,000(H) 230 - 1,250 pg/mL [facility] Blood specimen (specimen) 08/14/2018 11:45 AM CDT 08/14/2018 12:13 PM CDT Narrative [facility] - 08/14/2018 1:33 PM CDT us Trena Obando MD LAB BLOOD ORDERABLES Final R esult [facility] [place] [address] documented in this encounter Visit Diagnoses Diagnosis [...] 08/14/2018 documented in this encounter Care Teams Instrumentation Engineering Technician Relationship Specialty Start Date End Date Ravi Smith MD PCP - General 11/04/17 09/27/21 Aft, Kianna Machado MD PhD [address] [place] [address] Surgeon Surgical Oncology 11/22/17 Santiago Gilbert MD [address] [place] [address] Stitcher Special Machine Gastroenterology 11/22/17 documented as of this encounter
--- OUTSIDE RECORDS SUMMARY | 2024-04-24 14:58 | XMS_ITS | Encounter Summary ---
Author Organization [facility] Address [address] [place] [address] Phone Care Team Providers Care Lead Machinist Name Role Phone Ravi Smith MD Primary Care Provider [phone] Aft, Kianna Machado MD PhD Unavailable [phone] Santiago Gilbert MD Unavailable [phone] Reason for Referral * Cardiology (Routine) - Closed Specialty Diagnoses / Procedures Referred By Vijaya t Referred To Contact Diagnoses Malignant neoplasm of upper-inner quadrant of left breast in female, estrogen receptor negative (HCC) Shortness of breath Procedures Transthoracic Echo Complete W Doppler/CF Birdie Ventura MD Phone: tel: fax: [facility] (All Locations) Referral ID Status Reason Start Date Expiration Date Visits Re quested Visits Authorized [id number] Closed 08/06/2018 02/15/2020 1 1 Reason for Visit * Oncology (Routine) - Closed Specialty Diagnoses / Procedures Referred By Contronny t Referred To Contact Medical Oncology / Oncology Diagnoses 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 Ventura to discuss TC Procedures ONCBCN CLINIC APPOINTMENT REQUEST RETURN Jamaica Montoya, KAM [address] [place] [address] Phone: tel: fax: Birdie Ventura MD [address] [place] [address] Phone: tel: fax: Referral ID Status Reason Start Date Expiration Date V isits Requested Visits Authorized [id number] Closed Specialty Services Required 06/04/2018 05/05/2019 99 99 Encounter Details Date Type Department Care Team (Late st Contact Info) Description 08/06/2018 9:15 AM CDT Office Visit [facility] Oncology [address] [place] [address] Birdie Ventura MD [address] [place] [address] Malignant neoplasm of upper-inner quadrant [...] on file 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 Gender Identity Not on file Sexual [...] Recent labs, radiology and pathology reviewed in [facility] ASSESSMENT: T4bN0 disease, Stage IIC colon [...] test: 08/07/2018 Type of test: TTE w/Doppler [facility] #: [id number] Date of : 1955 (F) Nutritionist: Olivia Narayanan [facility] RVT Referring Physician: BIRDIE VENTURA MD Contrast Agent: Contrast Administered by: Supervised/Interpreted by: Wilberto ??MD Crystal Diagnosis: High Risk Meds Location: [facility] Reason for test: High Risk Meds, Shortness [...] 2=Hypo 3=Akinetic 4=Dyskin./Aneurysm 0=Not visualized) Parasternal Long [place]:MAS=1 BAS=1 MP=1 BP=1 Parasternal Short [place]:MAS=1 MS=1 DE=1 MP=1 ML=1 MA=1 Apical 4 Chambers:=1 MS=1 BS=1 BL=1 DE=1 AL=1 Apical 2 Chambers:AI=1 DE=1 BI=1 BA=1 MA=1 AA=1 LV Global Longitudinal [...] Crystal By signing this report, the attending script editor certifies that he or she has personally supervised and interpreted the echocardiogram and has reviewed and or edited and agrees with the written comments contained within the report. Procedure Note Wilberto Rojas MD - 08/07/2018 Patient name: Aleah Gerber Date of test: 08/07/2018 Type of test: TTE w/Doppler [facility] #: [id number] Date of : 1955 (F) Nutritionist: Olivia Narayanan [facility] Referring Physician: BIRDIE VENTURA MD Contrast Agent: Contrast Administered by: Supervised/Interpreted by: Wilberto Rojas MD Diagnosis: High Risk Meds Location: [facility] Reason for test: High Risk Meds, Shortness [...] 2=Hypo 3=Akinetic 4=Dyskin./Aneurysm 0=Not visualized) Parasternal Long [place]:MAS=1 BAS=1 MP=1 BP=1 Parasternal Short [place]:MAS=1 MS=1 DE=1 MP=1 ML=1 MA=1 Apical 4 Chambers:=1 MS=1 BS=1 BL=1 DE=1 AL=1 Apical 2 Chambers:AI=1 DE=1 BI=1 BA=1 MA=1 AA=1 LV Global Longitudinal [...] MD By signing this report, the attending script editor certifies that he or she has personally [...] 019 documented in this encounter Care Teams Lead Machinist Relationship Specialty Start Date End Date Ravi Smith MD PCP - General 11/04/17 09/27/21 Aft, Kianna Machado MD PhD [address] [place] [address] Surgeon Surgical Oncology 11/22/17 Santiago Gilbert MD [address] [place] [address] Message Broker Developer Gastroenterology 11/22/17 documented as of this encounter
--- OUTSIDE RECORDS SUMMARY | 2024-04-24 14:58 | XMS_ITS | Encounter Summary ---
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
--- OUTSIDE RECORDS SUMMARY | 2024-04-24 14:58 | XMS_ITS | Encounter Summary ---
Author Organization [facility] Address [address] [place] [address] Phone Care Team Providers Care Nursing Resident Name Role Phone Ravi Smith MD Primary Care Provider [phone] Aft, Kianna Machado MD PhD Unavailable [phone] Santiago Gilbert MD Unavailable [phone] Encounter Details Date Type Department Care Team (Late st Contact Info) Description 08/08/2018 Orders Only [facility] Oncology [address] [place] [address] Abbi Ventura MD [address] [facility] [address] [place] [address] Encounter for person encountering health services; Malignant [...] file Legal Sex Female 1:06 AM HOT 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 WORKER Gender Identity Not on file Sexual [...] Final Result [facility] Department [place] [address] * (ABNORMAL) CBC with auto differential (08/12/2018 [...] 08/12/2018 8:32 AM CDT us Jamaica Montoya TRUCK DESPATCHER LAB BLOOD ORDERABLES Final Result [facility] Department [place] [address] documented in this encounter Visit Diagnoses Diagnosis [...] 08/12/2018 documented in this encounter Care Teams Nursing Resident Relationship Specialty Start Date End Date Ravi Smith MD PCP - General 11/04/17 09/27/21 Aft, Kianna Machado MD PhD [address] [place], [place] [address] Surgeon Surgical Oncology 11/22/17 Santiago Gilbert MD [address] [place] [address] Process Description Writer Gastroenterology 11/22/17 documented as of this encounter
--- OUTSIDE RECORDS SUMMARY | 2024-04-24 14:58 | XMS_ITS | Encounter Summary ---
Author Organization [facility] Address [address] [place] [address] Phone Care Team Providers Care Cook Dessert Name Role Phone Ravi Smith MD Primary Care Provider [phone] Aft, Kianna Machado MD PhD Unavailable [phone] Santiago Gilbert MD Unavailable [phone] Encounter Details Date Type Department Care Team (Late st Contact Info) Description 08/08/[address] [facility] Oncology [address] [place] [address] Fatemeh Zarate RN Social History Tobacco Use Types Packs/Day Years Used Date Smoking Tobacco: Former Cigarettes 2015 Smokeless Tobacco: Never Alcohol Use Standard Drinks/Week Comments Yes 0 (1 standard drink = 0.6 oz pur e alcohol) socially Comments No Sex and Gender Information Value Date Recorded Sex Assigned at Not on file Legal Sex Female 1:06 AM BLADDER BLOWER Gender Identity Not on file Sexual Orientation [...] on filedocumented in this encounter Care Teams Cook Dessert Relationship Specialty Start Date End Date Ravi Smith MD PCP - General 11/04/17 09/27/21 Aft, Kianna Machado MD PhD [address] [place] [address] Surgeon Surgical Oncology 11/22/17 Santiago Gilbert MD [address] [place] [address] Stitchdowns Toe Former Gastroenterology 11/22/17 documented as of this encounter
--- OUTSIDE RECORDS SUMMARY | 2024-04-24 14:58 | XMS_ITS | Encounter Summary ---
Author Organization [facility] Healthcare Address [address] [place] [address] Care Team Providers Care Civil Engineering Project Manager Name Role Phone Ravi Smith MD Primary Care Provider [phone] Aft, Kianna Machado MD PhD Unavailable [phone] Santiago Gilbert MD Unavailable [phone] Reason for Visit * Diagnostic Lab (Routine) - Closed Specialty Diagnoses / Procedures Referred By Vijaya simpson Referred To Contact Lab Diagnoses Drug-induced polyneuropathy (HCC) Procedures Neuromuscular Testing ([facility]) Trena Obando MD Phone: tel: fax: Referral ID Status Reason Start Date Expiration Date Visits Re quested Visits Authorized [id number] Closed 08/14/2018 02/23/2020 1 1 Encounter Details Date Type Department Care Team (Late st Contact Info) Description 08/14/2018 11:45 AM CDT Lab [facility] [address] [place] [address] Trena Obando MD [address] [facility] [address] [place] [address] Drug-induced polyneuropathy (CMS/HCC); Gait difficulty [...] on file Legal Sex Female 1:06 AM 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 Gender Identity Not on file Sexual Orientation [...] CK <20(L) 30 - 200 Units/L [facility] Blood specimen (specimen) 08/14/2018 11:45 AM CDT 08/14/2018 12:13 PM CDT [facility]ative [facility] - 08/14/2018 1:09 PM CDT Trena Obando MD LAB BLOOD ORDERABLES Final R esult [facility] [email or web address] [address] * Aldolase (08/14/2018 11:45 AM CDT) Aldolase 5.4 0.1 - 8.0 Units/L [facility] Blood specimen (specimen) 08/14/2018 11:45 AM CDT 08/14/2018 12:13 PM CDT Narrative [facility] - 08/15/2018 8:12 AM CDT Trena Obando MD LAB BLOOD ORDERABLES Final R esult Performing Organization Address [facility] [place] [address] * (ABNORMAL) Vitamin B12 (08/14/2018 11:45 AM CDT) Vitamin B12 >2,000(H) 230 - 1,250 pg/mL [facility] Blood specimen (specimen) 08/14/2018 11:45 AM CDT 08/14/2018 12:13 PM CDT Narrative [facility] - 08/14/2018 1:33 PM CDT Trena Obando MD LAB BLOOD ORDERABLES Final R esult [facility] [email or web address] [address] * Vitamin E (08/14/2018 11:45 AM CDT) Pathologist [facility] Tocopherol (Vit E) 6.2 5.5 - 17.0 mg/L [facility] Comment: ADDITIONAL INFORMATION This test was developed and its performance characteristics determined by [facility] in a manner consistent with CLIA requirements. This test has not been cleared or approved by the U.S. Food and Drug Administration. Test Performed by: [facility] [address] [place] [address] Blood specimen (specimen) 08/14/2018 11:45 AM CDT 08/14/2018 12:14 PM CDT Narrative [facility] - 08/19/2018 8:22 AM CDT Trena Obando MD LAB BLOOD ORDERABLES Final R esult Performing Organization Address City/[facility]/ZIP Co de Phone Number [facility] Department [email or web address] [address] * Immunofixation (08/14/2018 11:45 AM CDT) [facility] Immunofixation No monoclonal protein detected. [facility] Blood specimen (specimen) 08/14/2018 11:45 AM CDT 08/14/2018 12:12 PM CDT Narrative [facility] - 08/16/2018 7:12 AM CDT Trena Obando MD LAB BLOOD ORDERABLES Final R esult [facility] [place] [address] * BLOSSOM qualitative with reflex to BLOSSOM Quantitative (08/14/2018 11:45 AM CDT) [facility] BLOSSOM Negative [facility] Comment: Interpretive Data Normal range for [...] AM CDT 08/14/2018 12:12 PM CDT Narrative [facility] - 08/15/2018 10:48 AM CDT Trena Obando MD LAB BLOOD ORDERABLES Final R esult Performing Organization Address [facility] Co de Phone Number [facility] Department [place] [address] * IgA (08/14/2018 11:45 AM CDT) Immunoglobulin A 118.0 70.0 - 400.0 mg/dL [facility] Blood specimen (specimen) 08/14/2018 11:45 AM CDT 08/14/2018 12:[address] [facility] 08/14/2018 1:03 PM CDT Trena Obando MD LAB BLOOD ORDERABLES Final R esult Performing Organization Address City/[facility] Co de Phone Number [facility] Department [email or web address] [address] * (ABNORMAL) IgG (08/14/2018 11:45 AM CDT) Immunoglobulin G 425.0(L) 700.0 - 1,600.0 mg/dL [facility] Blood specimen (specimen) 08/14/2018 11:45 AM CDT 08/14/2018 12:13 PM CDT [facility] - 08/14/2018 1:03 PM CDT Trena Obando MD LAB BLOOD ORDERABLES Final R [facility] Performing Organization Address City/[facility] Co de Phone Number [facility] Department [place] [address] * (ABNORMAL) IgM (08/14/2018 11:45 AM CDT) Immunoglobulin M 38.0(L) 40.0 - 230.0 mg/dL [facility] Blood specimen (specimen) 08/14/2018 11:45 AM CDT 08/14/2018 12:13 PM CDT Narrative [facility] - 08/14/2018 1:03 PM CDT Trena Obando MD LAB BLOOD ORDERABLES Final R [facility] Performing Organization Address City/[facility] Co de Phone Number [facility] Department [place] [address] documented in this encounter Visit Diagnoses Diagnosis Drug-induced polyneuropathy (HCC) Polyneuropathy due to drugs Gait difficulty Abnormality of gait documented in this encounter Orders Lab Orders Without Results Count Last Ordered D ate First Ordered Date NEUROMUSCULAR TESTING ([facility]) 08/04 documented in this encounter Care Teams Civil Engineering Project Manager Relationship Specialty Start Date End Date Ravi Smith MD PCP - General 11/04/17 09/27/21 Aft, Kianna Machado MD PhD [address] [place] [address] Surgeon Surgical Oncology 11/22/17 Santiago Gilbert MD [address] [place] [address] Four Horse Hitch Driver Gastroenterology 11/22/17 documented as of this encounter
--- OUTSIDE RECORDS SUMMARY | 2024-04-24 14:58 | XMS_ITS | Encounter Summary ---
Author Organization [facility] Address [address] [place] [address] Phone Care Team Providers Care Bar Tacker Name Role Phone Ravi Smith MD Primary Care Provider [phone] Kianna Bunch MD PhD Unavailable [phone] Santiago Gilbert MD Unavailable Encounter Details Date Type Department Care Team (Late st Contact Info) Description 08/08/2018 Orders Only [facility] Oncology [address] [place] [address] Fatemeh Zarate, LYDIA Social History Tobacco Use Types Packs/Day Years Used Date Smoking Tobacco: Former Cigarettes 2015 Smokeless Tobacco: Never Alcohol Use Standard Drinks/Week Comments Yes 0 (1 standard drink = 0.6 oz pur e alcohol) socially Comments No Sex and Gender Information Value Date Recorded Sex Assigned at Not on file 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
--- OUTSIDE RECORDS SUMMARY | 2024-04-24 14:58 | XMS_ITS | Encounter Summary ---
Author Organization [facility] Address [address] [place] [address] Phone Care Team Providers Care Ceramics Teacher Name Role Phone Ravi Smith MD Primary Care Provider [phone] Kianna Bunch MD PhD Unavailable [phone] Santiago Gilbert MD Unavailable [phone] Reason for Referral * Diagnostic Imaging (Routine) - Closed Specialty Diagnoses / Procedures Referred By Contronny t Referred To Contact Diagnoses History of breast cancer Procedures US Breast Left Limited Kianna Bunch MD PhD Phone: tel: fax: [address] [address] Referral ID Status Reason Start Date Expiration Date Visits Re quested Visits Authorized [id number] Closed 07/22/2018 01/31/2020 1 1 Encounter Details Date Type Department Care Team (Late st Contact Info) Description 07/22/[address] 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 Elie Bradley. BREAST PARENCHYMAL [...] left breast was performed by a trained director multimedia and by Dr. Elie Bradley. BREAST PARENCHYMAL [...] breast documented in this encounter Care Teams Ceramics Teacher Relationship Specialty Start Date End Date Ravi Smith MD PCP - General 11/04/17 09/27/21 Aft, Kianna Machado MD PhD [address] [facility] [place], [place] [id number] Surgeon Surgical Oncology 11/22/17 Santiago Gilbert MD [address] [place], [place] [id number] Electronic Equipment Installer Gastroenterology 11/22/17 documented as of this encounter
--- OUTSIDE RECORDS SUMMARY | 2024-04-24 14:58 | XMS_ITS | Encounter Summary ---
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 Ventura to discuss TC Procedures [facility] APPOINTMENT REQUEST RETURN [place] Montoya, CAR SHAGGER [address] [facility] [address] [address] Phone: tel: fax: Abbi Ventura MD [address] [place] [address] Phone: tel: fax: Referral ID Status Reason Start Date Expiration Date V isits Requested Visits Authorized [id number] Closed Specialty Services Required 06/04/2018 05/05/2019 99 99 Encounter Details Date Type Department Care Team (Late st Contact Info) Description 08/27/2018 11:15 AM CDT Office Visit [facility] Oncology [address] [place] [address] Abbi Ventura MD [address] [place] [address] 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) Social History Tobacco Use Types Packs/Day Years Used Date Smoking Tobacco: Former Cigarettes 1 2015 Smokeless Tobacco: Never Alcohol Use Standard Drinks/Week Comments Yes 0 (1 standard drink = 0.6 oz pur e alcohol) socially Comments No Sex and Gender Information Value Date Recorded Sex Assigned at Not on file Legal 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 Knowledge Factor My risk showed no mutation in MLH [...] THOMAS ASSESSMENT: T4bN0 disease, Stage IIC colon adenocarcinoma: [...] colon documented in this encounter Care Teams Outreach Worker Relationship Specialty Start Date End Date Ravi Smith MD PCP - General 11/04/17 09/27/21 Julio C, Kianna Machado MD PhD [address] [place] [address] Surgeon Surgical Oncology 11/22/17 Santiago Gilbert MD [address] [place] [address] Stock Preparation Supervisor Gastroenterology 11/22/17 documented as of this encounter
--- OUTSIDE RECORDS SUMMARY | 2024-04-24 14:58 | XMS_ITS | Encounter Summary ---
Author Organization [facility] Address [address] [place] [address] Phone Care Team Providers Care Home Weatherizing Worker Name Role Phone Ravi Smith MD Primary Care Provider [phone] Aft, Kianna Machado MD PhD Unavailable [phone] Santiago Gilbert MD Unavailable [phone] Reason for Visit * Neurology (Routine) - Closed Specialty Diagnoses / Procedures Referred By Vijaya simpson Referred To Contact Diagnoses Drug-induced polyneuropathy (HCC) Procedures EMG/NCV -Procedure performed at: [facility] EMG Lab; Clinical Summary: 63 yo woman with breast and colon cancer, s/p oxaliplatin; on XARELTO p/w difficulties walking; Reason for referral or diagnostic question: please evaluate for peripheral neuropath... Trena Obando MD Phone: tel: fax: [facility] (All Locations) Referral ID Status Reason Start Date Expiration Date Visits Re quested Visits Authorized [id number] Closed 08/14/2018 02/23/2020 1 1 Encounter Details Date Type Department Care Team (Latest Contact Info) Description 08/14/2018 1:30 PM CDT Procedure visit [facility] Neurological Testing [address] [facility] 6[address] [place] [address] [place] [address] Drug-induced polyneuropathy (CMS/HCC) Social History Tobacco Use Types Packs/Day Years Used Date Smoking Tobacco: Former Cigarettes 2015 Smokeless Tobacco: Never Alcohol Use Standard Drinks/Week Comments Yes 0 (1 standard drink = 0.6 oz pur e alcohol) socially Comments No Sex and Gender Information Value Date Recorded Sex Assigned at Not on file 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 Procedures [facility] DEPARTMENT OF NEUROLOGY NEUROMUSCULAR ELECTRODIAGNOSTIC LABORATORY CLINICAL ELECTROMYOGRAPHY REPORT Patient: Aleah Gerber Birthdate: 1955 Study No: [id number] MRN No: [id number] Referring M.D.: Trena Obando MD Date of [...] Fax no.: . Our correspondence address : [address], [address] [place] [address] School of Medicine Neurology, EMG Lab [place], [place] Data Report Full Name: Aleah Gerber [...] 08/14/2018 documented in this encounter Care Teams Home Weatherizing Worker Relationship Specialty Start Date End Date Ravi Smith MD PCP - General 11/04/17 09/27/21 Aft, Kianna Machado MD PhD [address] [place] [address] Surgeon Surgical Oncology 11/22/17 Santiago Gilbert MD [address] [place] [address] On Air Host Gastroenterology 11/22/17 documented as of this encounter
--- OUTSIDE RECORDS SUMMARY | 2024-04-24 14:58 | XMS_ITS | Encounter Summary ---
Author Organization [facility] Address [address] [place] [address] Phone Care Team Providers Care Gauge And Weigh Machine Operator Name Role Phone Ravi Smith MD Primary Care Provider [phone] Aft, Kianna Machado MD PhD Unavailable [phone] Santiago Gilbert MD Unavailable [phone] Reason for Visit * Reason Onset Date Comments APPOINTMENT 07/24/2018 Encounter Details Date Type Department Care Team (Late st Contact Info) Description 07/24/2018 Telephone [facility] [address] [place] [address] Leroy Parish Rashad APPOINTMENT Social History Tobacco Use Types Packs/Day Years Used Date Smoking Tobacco: Former Cigarettes 2015 Smokeless Tobacco: Never Alcohol Use Standard Drinks/Week Comments Yes 0 (1 standard drink = 0.6 oz pur e alcohol) socially Comments No Sex and Gender Information Value Date Recorded Sex Assigned at Not on file 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 Gender Identity Not on file Sexual Orientation Not on file documented as of this encounter Miscellaneous Notes * Telephone Encounter - Leroy Parish MA - 07/24/2018 2:31 PM CDT PATIENT AWARE OF APPT documented in this encounter Plan of Treatment Not on file documented as of this encounter Visit Diagnoses Not on filedocumented in this encounter Care Teams Gauge And Weigh Machine Operator Relationship Specialty Start Date End Date Ravi Smith MD PCP - General 11/04/17 09/27/21 Aft, Kianna Machado MD PhD [address] [facility] [place], [place] [id number] Surgeon Surgical Oncology 11/22/17 Santiago Gilbert MD [address] [facility] [place], [place] [id number] Hoop Machine Operator Gastroenterology 11/22/17 documented as of this encounter
--- OUTSIDE RECORDS SUMMARY | 2024-04-24 14:58 | XMS_ITS | Encounter Summary ---
Author Organization [facility] Address [address] [place] [address] Phone Care Team Providers Care Punch Press Operator Helper Name Role Phone Ravi Smith MD Primary Care Provider [phone] Aft, Kianna Machado MD PhD Unavailable [phone] Santiago Gilbert MD Unavailable [phone] Encounter Details Date Type Department Care Team (Latest Contact Info) Description 08/27/2018 11:00 AM CDT Clinical Support [facility] Oncology [address] [place] [address] Malignant neoplasm of descending colon (CMS/HCC); Malignant [...] on file Legal Sex Female 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 Current Interpretive Data was last revised on 2017. Imm gran pct 4.0 % [facility] Comment: Interpretive Data Percent cell count reference ranges are not reported, since discordance with absolute values may lead to misinterpretation of CBC data. Current Interpretive Data was last revised on 2017. Lymphocyte pct 7.9 % [facility] Comment: Interpretive Data Percent cell count reference ranges are not reported, since discordance with absolute values may lead to misinterpretation of CBC data. Current Interpretive Data was last revised on 2017. Monocyte pct 5.8 % [facility] Comment: Interpretive Data Percent cell count reference ranges are not reported, since discordance with absolute values may lead to misinterpretation of CBC data. Current Interpretive Data was last revised on 2017. Eosinophil pct 0.6 % [facility] Comment: Interpretive Data Percent cell count reference ranges are not reported, since discordance with absolute values may lead to misinterpretation of CBC data. Current Interpretive Data was last revised on 2017. Basophil pct 0.6 % [facility] Comment: Interpretive Data Percent cell count reference ranges are not reported, since discordance with absolute values may lead to misinterpretation of CBC data. Current Interpretive Data was last revised on 2017. Blood specimen (specimen) 08/27/2018 11:03 AM CDT 08/27/2018 11:04 AM CDT Narrative [facility] - 08/27/2018 11:06 AM CDT us Abbi Ventura MD LAB BLOOD ORDERABLES Final Resul t [facility] Department [place] [address] * (ABNORMAL) CBC with auto differential (08/27/2018 11:03 AM CDT) WBC 10.3(H) 3.8 - 9.9 K/cumm [facility] Hgb 8.1(L) 11.9 - 15.5 g/dL [facility] Hct 24.4(L) 35.6 - 45.5 % [facility] Plt 130(L) 150 - 400 K/cumm [facility] MPV 9.5 9.1 - 12.3 fL [facility] RBC 2.46(L) 3.90 - 5.20 M/cumm [facility] MCV 99.2(H) 81.3 - 96.4 fL [facility] MCH 32.9 27.1 - 33.3 pg [facility] MCHC 33.2 32.3 - 35.7 g/dL [facility] RDW CV 16.5(H) 11.1 - 14.9 % [facility] RDW SD 57.5(H) 35.7 - 48.1 fL [facility] NRBC abs 0.03(H) 0.00 - 0.01 K/cumm [facility] Blood specimen (specimen) 08/27/2018 11:03 AM CDT 08/27/2018 11:04 AM CDT Narrative [facility] - 08/27/2018 11:06 AM CDT us Abbi Ventura MD LAB BLOOD ORDERABLES Final Resul t [facility] Department [place] [address] * (ABNORMAL) Comprehensive metabolic panel (08/27/2018 11:03 AM CDT) Sodium 139 135 - 145 mmol/L [facility] Potassium, pl 3.4 3.3 - 4.9 mmol/L [facility] Chloride 104 97 - 110 mmol/L [facility] CO2 22 22 - 32 mmol/L [facility] Anion gap 13 2 - 15 mmol/L [facility] BUN 16 8 - 25 mg/dL [facility] Creatinine 1.24(H) 0.60 - 1.10 mg/dL [facility] Glucose 142 70 - 199 mg/dL [facility] [...] 2017. Calcium 9.2 8.5 - 10.3 mg/dL [facility] Bilirubin, total 0.5 0.1 - 1.2 mg/dL [facility] Protein, pl 6.8 6.5 - 8.5 g/dL [facility] Albumin 4.2 3.5 - 5.0 g/dL [facility] Alk phos 84 40 - 130 Units/L [facility] ALT 15 7 - 45 Units/L [facility] AST 21 10 - 45 Units/L [facility] Blood specimen (specimen) 08/27/2018 11:03 AM CDT 08/27/2018 11:04 AM CDT Narrative [facility] - 08/27/2018 11:25 AM CDT us Abbi Ventura MD LAB BLOOD ORDERABLES Final Resul t [facility] Department [place] [address] documented in this encounter Visit Diagnoses Diagnosis 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
--- OUTSIDE RECORDS SUMMARY | 2024-04-24 14:58 | XMS_ITS | Encounter Summary ---
Author Organization [facility] Address [address] [place] [address] Phone Care Team Providers Care Healthcare Technician Name Role Phone Ravi Smith MD Primary Care Provider [phone] Kianna Bunch MD PhD Unavailable [phone] Santiago Gilbert MD Unavailable [phone] Encounter Details Date Type Department Care Team (Late st Contact Info) Description 08/12/2018 Orders Only [facility] Oncology [address] [place] [address] Fatemeh Zarate RN Dehydration (Primary Dx) Social History Tobacco Use Types Packs/Day Years Used Date Smoking Tobacco: Former Cigarettes 2015 Smokeless Tobacco: Never Alcohol Use Standard Drinks/Week Comments Yes 0 (1 standard drink = 0.6 oz pur e alcohol) socially Comments No Sex and Gender Information Value Date Recorded Sex Assigned at Not on file 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
--- OUTSIDE RECORDS SUMMARY | 2024-04-24 14:58 | XMS_ITS | Encounter Summary ---
Author Organization [facility] Address [address] [place] [address] Phone Care Team Providers Care Armed Security Guard Name Role Phone Ravi Smith MD Primary Care Provider [phone] Aft, Kianna Machado MD PhD Unavailable [phone] Santiago Gilbert MD Unavailable [phone] Reason for Visit * Reason Comments Chemotherapy * Episode Based Medications (Routine) - Closed Specialty Diagnoses / Procedures Referred By Vijaya simpson Referred To Contact Oncology Diagnoses Malignant neoplasm of upper-inner quadrant of left breast in female, estrogen receptor negative (HCC) Encounter for person encountering health services Procedures DE DOXORUBIC HCL 10 MG VL CHEMO DE CYCLOPHOSPHAMIDE 100 MG INJ DE INJECTION, PEGFILGRASTIM 6MG DE PALONOSETRON HCL DE FOSAPREPITANT INJECTION Dose-Dense AC: DOXOrubicin (ADRIAMYCIN) / Cyclophosphamide) with Abbi Chavez MD [address] [facility] [address] [place] [address] Phone: tel: fax: [facility] Oncology [address] [place] [address] Phone: tel: fax: Referral ID Status Reason Start Date Expiration Date Visits Re quested Visits Authorized [id number] Closed 06/25/2018 09/02/2018 1 36 Encounter Details Date Type Department Care Team (Late st Contact Info) Description 07/23/2018 1:00 PM CDT Infusion [facility] Oncology [address] [place] [address] Encounter for person encountering health services (Primary [...] file Legal Sex Female 1:06 AM SECURITIES COUNSELOR Gender Identity Not on file Sexual Orientation Not on file documented as of this encounter Nursing Notes * Ashlyn Burger RN - 07/23/2018 1:00 PM CDT Chemotherapy Nursing Note [facility] Aleah Gerber is a 62 y.o. [...] 07/23/2018 documented in this encounter Care Teams Armed Security Guard Relationship Specialty Start Date End Date Ravi Smith MD PCP - General 11/04/17 09/27/21 Aft, Kianna Machado MD PhD [address] [place] [address] Surgeon Surgical Oncology 11/22/17 Santiago Gilbert MD [address] [place] [address] President Celebrity Acquistion Gastroenterology 11/22/17 documented as of this encounter
--- OUTSIDE RECORDS SUMMARY | 2024-04-24 14:58 | XMS_ITS | Encounter Summary ---
Author Organization [facility] Address [address] [place] [address] Phone Care Team Providers Care Rolling Mill Operator Helper Name Role Phone Ravi Smith MD Primary Care Provider [phone] Aft, Kianna Machado MD PhD Unavailable [phone] Santiago Gilbert MD Unavailable [phone] Reason for Visit * Cardiology (Routine) - Closed Specialty Diagnoses / Procedures Referred By Contac t Referred To Contact Diagnoses Malignant neoplasm of upper-inner quadrant of left breast in female, estrogen receptor negative (HCC) Shortness of breath Procedures Transthoracic Echo Complete W Doppler/CF Abbi Ventura MD Phone: tel: fax: [facility] (All Locations) Referral ID Status Reason Start Date Expiration Date Visits Re quested Visits Authorized [id number] Closed 08/06/2018 02/15/2020 1 1 Encounter Details Date Type Department Care Team (Latest Contact Info) Description 08/07/2018 8:00 AM CDT Ancillary Procedure [facility] Cardiology [address] [facility] [address] [place] [address] Malignant neoplasm of upper-inner quadrant of left [...] file Legal Sex Female 1:06 AM DIRECTOR 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 Gender Identity Not on file Sexual [...] of test: 08/07/2018 Type of test: TTE [facility] #: [id number] Date of : 1955 (F) Consumer Insights Intern: Olivia Narayanan [facility] RVT Referring Physician: ABBI VENTURA MD Contrast Agent: Contrast Administered by: Supervised/Interpreted by: Wilberto ??MD Crystal Diagnosis: High Risk Meds Location: [facility] Reason for test: High Risk Meds, Shortness [...] 2=Hypo 3=Akinetic 4=Dyskin./Aneurysm 0=Not visualized) Parasternal Long [place]:MAS=1 BAS=1 MP=1 BP=1 Parasternal Short [place]:MAS=1 MS=1 NC=1 MP=1 ML=1 MA=1 Apical 4 Chambers:=1 MS=1 BS=1 BL=1 NC=1 AL=1 Apical 2 Chambers:AI=1 NC=1 BI=1 BA=1 MA=1 AA=1 LV Global Longitudinal [...] Crystal By signing this report, the attending vehicle inspector certifies that he or she has personally supervised and interpreted the echocardiogram and has reviewed and or edited and agrees with the written comments contained within the report. Procedure Note Wilberto Rojas MD - 08/07/2018 Patient name: Aleah Gerber Date of test: 08/07/2018 Type of test: [facility] #: [id number] Date of : 1955 (F) Consumer Insights Intern: Olivia Narayanan, [facility] Referring Physician: ABBI VENTURA MD Contrast Agent: Contrast Administered by: Supervised/Interpreted by: Wilberto Rojas MD Diagnosis: High Risk Meds Location: [facility] Reason for test: High Risk Meds, Shortness [...] 2=Hypo 3=Akinetic 4=Dyskin./Aneurysm 0=Not visualized) Parasternal Long [place]:MAS=1 BAS=1 MP=1 BP=1 Parasternal Short [place]:MAS=1 MS=1 NC=1 MP=1 ML=1 MA=1 Apical 4 Chambers:=1 MS=1 BS=1 BL=1 NC=1 AL=1 Apical 2 Chambers:AI=1 NC=1 BI=1 BA=1 MA=1 AA=1 LV Global Longitudinal [...] MD By signing this report, the attending vehicle inspector certifies that he or she has personally [...] breath documented in this encounter Care Teams Rolling Mill Operator Helper Relationship Specialty Start Date End Date Ravi Smith MD PCP - General 11/04/17 09/27/21 Aft, Kianna Machado MD PhD [address] [place] [address] Surgeon Surgical Oncology 11/22/17 Santiago Gilbert MD [address] [place] [address] Organic Gardening Teacher Gastroenterology 11/22/17 documented as of this encounter
--- OUTSIDE RECORDS SUMMARY | 2024-04-24 14:58 | XMS_ITS | Encounter Summary ---
Author Organization [facility] Address [address] [place] [address] Phone Care Team Providers Care Finished Cloth Checker Name Role Phone Ravi Smith MD Primary Care Provider [phone] Aft, Kianna Machado MD PhD Unavailable [phone] Santiago Gilbert MD Unavailable [phone] Encounter Details Date Type Department Care Team (Late st Contact Info) Description 08/08/2018 Orders Only [facility] Oncology [address] [place] [address] Abbi Ventura MD [address] [facility] [address] [address] Social History Tobacco Use Types Packs/Day Years Used Date Smoking Tobacco: Former Cigarettes 2015 Smokeless Tobacco: Never Alcohol Use Standard Drinks/Week Comments Yes 0 (1 standard drink = 0.6 oz pur e alcohol) socially Comments No Sex and Gender Information Value Date Recorded Sex Assigned at Not on file Legal Sex Female 1: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
--- OUTSIDE RECORDS SUMMARY | 2024-04-24 14:58 | XMS_ITS | Encounter Summary ---
Author Organization [facility] Address [address] [place] [address] Phone Care Team Providers Care Traveling Representative Name Role Phone Ravi Smith MD Primary Care Provider [phone] Aft, Kianna Machado MD PhD Unavailable [phone] Santiago Gilbert MD Unavailable [phone] Encounter Details Date Type Department Care [...] on file Legal Sex Female 1:06 AM PHARMACY INTERN Gender Identity Not on file Sexual [...] on filedocumented in this encounter Care Teams Traveling Representative Relationship Specialty Start Date End Date Ravi Smith MD PCP - General 11/04/17 09/27/21 Aft, Kianna Machado MD PhD [address] [place] [address] Surgeon Surgical Oncology 11/22/17 Santiago Gilbert MD [address] [place] [address] Offset Proof Press Operator Gastroenterology 11/22/17 documented as of this encounter
--- OUTSIDE RECORDS SUMMARY | 2024-04-24 14:58 | XMS_ITS | Encounter Summary ---
Author Organization [facility] Address [address] [place] [address] Phone Care Team Providers Care Wireless Retail Manager Name Role Phone Ravi Smith MD Primary Care Provider [phone] Aft, Kianna Machado MD PhD Unavailable [phone] Santiago Gilbert MD Unavailable [phone] Encounter Details Date Type Department Care Team (Late st Contact Info) Description 08/08/[address] [facility] Oncology [address] [place] [address] Abbi Ventura MD [address] [facility] [address] [place] [address] Malignant neoplasm of descending colon (CMS/HCC) (Primary [...] on file Legal Sex Female 1:06 AM ANESTHESIOLOGY CRNA Gender Identity Not on file Sexual Orientation Not on file documented as of this encounter Plan of Treatment Not on file documented as of this encounter Results * (ABNORMAL) Comprehensive metabolic panel (08/27/2018 11:03 AM CDT) Sodium 139 135 - 145 mmol/L [facility] Potassium, pl 3.4 3.3 - 4.9 mmol/L [facility] Chloride 104 97 - 110 mmol/L [facility] CO2 22 22 - 32 mmol/L [facility] Anion gap 13 2 - 15 mmol/L [facility] BUN 16 8 - 25 mg/dL [facility] Creatinine 1.24(H) 0.60 - 1.10 mg/dL [facility] Glucose 142 70 - 199 mg/dL [facility] Comment: Interpretive Data Fasting glucose [...] Calcium 9.2 8.5 - 10.3 mg/dL [facility] Bilirubin, total 0.5 0.1 - 1.2 mg/dL [facility] Protein, pl 6.8 6.5 - 8.5 g/dL [facility] Albumin 4.2 3.5 - 5.0 g/dL [facility] Alk phos 84 40 - 130 Units/L [facility] ALT 15 7 - 45 Units/L [facility] AST 21 10 - 45 Units/L [facility] Blood specimen (specimen) 08/27/2018 11:03 AM CDT 08/27/2018 11:04 AM CDT Narrative [facility] - 08/27/2018 11:25 AM CDT us Abbi Ventura MD LAB BLOOD ORDERABLES Final Resul t [facility] Department [place] [address] * (ABNORMAL) CBC with auto differential (08/27/2018 11:03 AM CDT) WBC 10.3(H) 3.8 - 9.9 K/cumm [facility] Hgb 8.1(L) 11.9 - 15.5 g/dL [facility] Hct 24.4(L) 35.6 - 45.5 % [facility] Plt 130(L) 150 - 400 K/cumm [facility] MPV 9.5 9.1 - 12.3 fL [facility] RBC 2.46(L) 3.90 - 5.20 M/cumm [facility] MCV 99.2(H) 81.3 - 96.4 fL [facility] MCH 32.9 27.1 - 33.3 pg [facility] MCHC 33.2 32.3 - 35.7 g/dL [facility] RDW CV 16.5(H) 11.1 - 14.9 % [facility] RDW SD 57.5(H) 35.7 - 48.1 fL [facility] NRBC abs 0.03(H) 0.00 - 0.01 K/cumm [facility] Blood specimen (specimen) 08/27/2018 11:03 AM CDT 08/27/2018 11:04 AM CDT Narrative [facility] - 08/27/2018 11:06 AM CDT us Abbi Ventura MD LAB BLOOD ORDERABLES Final Resul t [facility] Department [place] [address] documented in this encounter Visit Diagnoses Diagnosis [...] (HCC) documented in this encounter Care Teams Wireless Retail Manager Relationship Specialty Start Date End Date Ravi Smith MD PCP - General 11/04/17 09/27/21 Aft, Kianna Machado MD PhD [address] [place] [address] Surgeon Surgical Oncology 11/22/17 Santiago Gilbert MD [address] [place] [address] Computer Repair Engineer Gastroenterology 11/22/17 documented as of this encounter
--- OUTSIDE RECORDS SUMMARY | 2024-04-24 14:58 | XMS_ITS | Encounter Summary ---
Author Organization [facility] Address [address] [place] [address] Phone Care Team Providers Care Screen Cutter And Trimmer Name Role Phone Ravi Smith MD Primary Care Provider [phone] Aft, Kianna Machado MD PhD Unavailable [phone] Santiago Gilbert MD Unavailable [phone] Encounter Details Date Type Department Care Team (Late st Contact Info) Description 08/06/2018 Documentation [facility] Oncology [address] [place] [address] Alexia Olmos, [facility] Social History Tobacco Use Types Packs/Day Years Used Date Smoking Tobacco: Former Cigarettes 2015 Smokeless Tobacco: Never Alcohol Use Standard Drinks/Week Comments Yes 0 (1 standard drink = 0.6 oz pur e alcohol) socially Comments No Sex and Gender Information Value Date Recorded Sex Assigned at Not on file Legal Sex Female 1:06 AM 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
--- OUTSIDE RECORDS SUMMARY | 2024-04-24 14:58 | XMS_ITS | Encounter Summary ---
Author Organization [facility] Address [address] [place] [address] Phone Care Team Providers Care Scale Installer Name Role Phone Ravi Smith MD Primary Care Provider [phone] Aft, Kianna Machado MD PhD Unavailable [phone] Santiago Gilbert MD Unavailable [phone] Reason for Visit * Episode Based Medications (Routine) - Closed Specialty Diagnoses / Procedures Referred By Vijaya t Referred To Contact Oncology Diagnoses Malignant neoplasm of upper-inner quadrant of left breast in female, estrogen receptor negative (HCC) Encounter for person encountering health services Procedures [place] DOXORUBIC HCL 10 MG VL CHEMO [place] CYCLOPHOSPHAMIDE 100 MG INJ W[place] INJECTION, PEGFILGRASTIM 6MG [place] PALONOSETRON HCL WY FOSAPREPITANT INJECTION Dose-Dense AC: DOXOrubicin (ADRIAMYCIN) / Cyclophosphamide) with Abbi Chavez MD [address] [facility] [address] [address] [place] [address] Phone: tel: fax: [facility] Oncology [address] [place] [address] Phone: tel: fax: Referral ID Status Reason Start Date Expiration Date Visits Re quested Visits Authorized [id number] Closed 06/25/2018 09/02/2018 1 36 Encounter Details Date Type Department Care Team (Latest Contact Info) Description 07/23/2018 11:30 AM CDT Clinical Support [facility] Oncology [address] [place] [address] Encounter for person encountering health services; Malignant [...] on file Legal Sex Female 1:06 AM MC KAY STITCHER Gender Identity Not on file Sexual Orientation [...] AM CDT 07/23/2018 11:16 AM CDT [facility]ative [facility] - 07/23/2018 12:35 PM CDT us Abbi Ventura MD LAB BLOOD ORDERABLES Final Resul t [facility] Department [place] [address] * (ABNORMAL) Differential, auto (07/23/2018 11:16 AM CDT) Neutrophil abs 6.7(H) 1.7 - 6.5 K/cumm [facility] Imm gran abs 1.8(H) 0.0 - 0.1 K/cumm [facility] Lymphocyte abs 0.7(L) 0.8 - 3.3 K/cumm [facility] Monocyte abs 0.7 0.2 - 0.8 K/cumm [facility] Eosinophil abs 0.0 0.0 - 0.5 K/cumm [facility] Basophil abs 0.0 0.0 - 0.1 K/cumm [facility] Neutrophil pct 66.6 % [facility] Comment: Interpretive Data Percent cell count reference ranges are not reported, since discordance with absolute values may lead to misinterpretation of CBC data. Current Interpretive Data was last revised on 2017. Imm gran pct 18.5 % [facility] Comment: Interpretive Data Percent cell count reference ranges are not reported, since discordance with absolute values may lead to misinterpretation of CBC data. Current Interpretive Data was last revised on 2017. Lymphocyte pct 6.9 % [facility] Comment: Interpretive Data Percent cell count reference ranges are not reported, since discordance with absolute values may lead to misinterpretation of CBC data. Current Interpretive Data was last revised on 2017. Monocyte pct 7.3 % [facility] Comment: Interpretive Data Percent cell count reference ranges are not reported, since discordance with absolute values may lead to misinterpretation of CBC data. Current Interpretive Data was last revised on 2017. Eosinophil pct 0.3 % [facility] Comment: Interpretive Data Percent cell count reference ranges are not reported, since discordance with absolute values may lead to misinterpretation of CBC data. Current Interpretive Data was last revised on 2017. Basophil pct 0.4 % [facility] Comment: Interpretive Data Percent cell count reference ranges are not reported, since discordance with absolute values may lead to misinterpretation of CBC data. Current Interpretive Data was last revised on 2017. Blood specimen (specimen) 07/23/2018 11:16 AM CDT 07/23/2018 11:16 AM CDT Narrative [facility] - 07/23/2018 12:35 PM CDT us Abbi Ventura MD LAB BLOOD ORDERABLES Final Resul t [facility] Department [place] [address] * (ABNORMAL) CBC with auto differential (07/23/2018 11:16 AM CDT) WBC 10.0(H) 3.8 - 9.9 K/cumm [facility] Hgb 8.6(L) 11.9 - 15.5 g/dL [facility] Hct 25.3(L) 35.6 - 45.5 % [facility] Plt 115(L) 150 - 400 K/cumm [facility] MPV 9.8 9.1 - 12.3 fL [facility] RBC 2.57(L) 3.90 - 5.20 M/cumm [facility] MCV 98.4(H) 81.3 - 96.4 fL [facility] MCH 33.5(H) 27.1 - 33.3 pg [facility] MCHC 34.0 32.3 - 35.7 g/dL [facility] RDW CV 13.3 11.1 - 14.9 % [facility] RDW SD 47.4 35.7 - 48.1 fL [facility] NRBC abs 0.07(H) 0.00 - 0.01 K/cumm [facility] Blood specimen (specimen) 07/23/2018 11:16 AM CDT 07/23/2018 11:16 AM CDT Narrative [facility] - 07/23/2018 11:20 AM CDT us Abbi Ventura MD LAB BLOOD ORDERABLES Final Resul t [facility] Department [place] [address] * (ABNORMAL) Comprehensive metabolic panel (07/23/2018 11:16 AM CDT) Sodium 141 135 - 145 mmol/L [facility] Potassium, pl 3.1(L) 3.3 - 4.9 mmol/L [facility] Chloride 102 97 - 110 mmol/L [facility] CO2 27 22 - 32 mmol/L [facility] Anion gap 12 2 - 15 mmol/L [facility] BUN 11 8 - 25 mg/dL [facility] Creatinine 1.00 0.60 - 1.10 mg/dL [facility] Glucose 285(H) 70 - 199 mg/dL [facility] Comment: Interpretive Data Fasting glucose [...] 2017. Calcium 9.1 8.5 - 10.3 mg/dL [facility] Bilirubin, total 0.3 0.1 - 1.2 mg/dL [facility] Protein, pl 6.4(L) 6.5 - 8.5 g/dL [facility] Albumin 3.9 3.5 - 5.0 g/dL [facility] Alk phos 83 40 - 130 Units/L [facility] ALT 18 7 - 45 Units/L [facility] AST 27 10 - 45 Units/L [facility] Blood specimen (specimen) 07/23/2018 11:16 AM CDT 07/23/2018 11:16 AM CDT Narrative [facility] - 07/23/2018 11:45 AM CDT us Abbi Ventura MD LAB BLOOD ORDERABLES Final Resul t [facility] Department [place] [address] documented in this encounter Visit Diagnoses Diagnosis Encounter for person encountering health services Malignant neoplasm of upper-inner quadrant of left breast in female, estrogen receptor negative (HCC) documented in this encounter Orders Appointment Requests Count Last Ordered Date Fi rst Ordered Date ONCBCN LAB APPOINTMENT 1 07/23/2018 documented in this encounter Care Teams Scale Installer Relationship Specialty Start Date End Date Ravi Smith MD PCP - General 11/04/17 09/27/21 Aft, Kianna Machado MD PhD [address] [place] [address] Surgeon Surgical Oncology 11/22/17 Santiago Gilbert MD [address] [place] [address] Web Services Professional Gastroenterology 11/22/17 documented as of this encounter
--- OUTSIDE RECORDS SUMMARY | 2024-04-24 14:58 | XMS_ITS | Encounter Summary ---
Author Organization [facility] Address [address] [place] [address] Phone Care Team Providers Care Structural Steel Erector Name Role Phone Ravi Smith MD Primary Care Provider [phone] Aft, Kianna Machado MD PhD Unavailable [phone] Santiago Gilbert MD Unavailable [phone] Reason for Visit * Episode Based Medications (Routine) - Closed Specialty Diagnoses / Procedures Referred By Vijaya t Referred To Contact Oncology Diagnoses Malignant neoplasm of upper-inner quadrant of left breast in female, estrogen receptor negative (HCC) Encounter for person encountering health services Procedures PA DOXORUBIC HCL 10 MG VL CHEMO PA CYCLOPHOSPHAMIDE 100 MG INJ PA INJECTION, PEGFILGRASTIM 6MG PA PALONOSETRON HCL PA FOSAPREPITANT INJECTION Dose-Dense AC: DOXOrubicin (ADRIAMYCIN) / Cyclophosphamide) with Abbi Chavez MD [address] [place] [address] Phone: tel: fax: [facility] [address] [place] [address] Phone: tel: fax: Referral ID Status Reason Start Date Expiration Date Visits Re quested Visits Authorized [id number] Closed 06/25/2018 09/02/2018 1 36 Encounter Details Date Type Department Care Team (Latest Contact Info) Description 08/06/2018 8:45 AM CDT Clinical Support [facility] [address] [place] [address] Encounter for person encountering health services; Malignant [...] on file Legal Sex Female 1: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 Gender Identity Not on file Sexual [...] AM CDT 08/06/2018 9:17 AM CDT [facility]ative [facility] - 08/06/2018 9:53 AM CDT us [place] Montoya DIRECTOR OF UNDERGRADUATE ADMISSIONS LAB BLOOD ORDERABLES Final Result [facility] Department [place] [address] * (ABNORMAL) Differential, auto (08/06/2018 9:08 AM CDT) Neutrophil abs 10.3(H) 1.7 - 6.5 K/cumm [facility] Imm gran abs 1.8(H) 0.0 - 0.1 K/cumm [facility] Lymphocyte abs 0.8 0.8 - 3.3 K/cumm [facility] Monocyte abs 0.8 0.2 - 0.8 K/cumm [facility] Eosinophil abs 0.0 0.0 - 0.5 K/cumm [facility] Basophil abs 0.1 0.0 - 0.1 K/cumm [facility] Neutrophil pct 74.7 % [facility] Comment: Interpretive Data Percent cell count reference ranges are not reported, since discordance with absolute values may lead to misinterpretation of CBC data. Current Interpretive Data was last revised on 2017. Imm gran pct 12.7 % [facility] Comment: Interpretive Data Percent cell count reference ranges are not reported, since discordance with absolute values may lead to misinterpretation of CBC data. Current Interpretive Data was last revised on 2017. Lymphocyte pct 5.7 % [facility] Comment: Interpretive Data Percent cell count reference ranges are not reported, since discordance with absolute values may lead to misinterpretation of CBC data. Current Interpretive Data was last revised on 2017. Monocyte pct 5.9 % [facility] Comment: Interpretive Data Percent cell count reference ranges are not reported, since discordance with absolute values may lead to misinterpretation of CBC data. Current Interpretive Data was last revised on 2017. Eosinophil pct 0.1 % [facility] Comment: Interpretive Data Percent cell count reference ranges are not reported, since discordance with absolute values may lead to misinterpretation of CBC data. Current Interpretive Data was last revised on 2017. Basophil pct 0.9 % [facility] Comment: Interpretive Data Percent cell count reference ranges are not reported, since discordance with absolute values may lead to misinterpretation of CBC data. Current Interpretive Data was last revised on 2017. Blood specimen (specimen) 08/06/2018 9:08 AM CDT 08/06/2018 9:17 AM CDT Narrative [facility] - 08/06/2018 9:53 AM CDT us Jamaica Montoya NP LAB BLOOD ORDERABLES Final Result [facility] [place] [address] * (ABNORMAL) CBC with auto differential (08/06/2018 9:08 AM CDT) WBC 13.8(H) 3.8 - 9.9 K/cumm [facility] Hgb 8.8(L) 11.9 - 15.5 g/dL [facility] Hct 26.2(L) 35.6 - 45.5 % [facility] Plt 97(L) 150 - 400 K/cumm [facility] MPV 10.0 9.1 - 12.3 fL [facility] RBC 2.66(L) 3.90 - 5.20 M/cumm [facility] MCV 98.5(H) 81.3 - 96.4 fL [facility] MCH 33.1 27.1 - 33.3 pg [facility] MCHC 33.6 32.3 - 35.7 g/dL [facility] RDW CV 14.9 11.1 - 14.9 % [facility] RDW SD 50.5(H) 35.7 - 48.1 fL [facility] NRBC abs 0.05(H) 0.00 - 0.01 K/cumm [facility] Blood specimen (specimen) 08/06/2018 9:08 AM CDT 08/06/2018 9:17 AM CDT Narrative [facility] - 08/06/2018 9:21 AM CDT Jamaica Montoya NP LAB BLOOD ORDERABLES Final Result [facility] Department [place] [address] * (ABNORMAL) Comprehensive metabolic panel (08/06/2018 9:08 AM CDT) Sodium 145 135 - 145 mmol/L [facility] Potassium, pl 3.5 3.3 - 4.9 mmol/L [facility] Chloride 106 97 - 110 mmol/L [facility] CO2 25 22 - 32 mmol/L [facility] Anion gap 14 2 - 15 mmol/L [facility] BUN 16 8 - 25 mg/dL [facility] Creatinine 1.22(H) 0.60 - 1.10 mg/dL [facility] Glucose 190 70 - 199 mg/dL [facility] Comment: [...] 2017. Calcium 10.1 8.5 - 10.3 mg/dL [facility] Bilirubin, total 0.5 0.1 - 1.2 mg/dL [facility] Protein, pl 6.7 6.5 - 8.5 g/dL [facility] Albumin 4.2 3.5 - 5.0 g/dL [facility] Alk phos 103 40 - 130 Units/L [facility] ALT 19 7 - 45 Units/L [facility] AST 25 10 - 45 Units/L [facility] Blood specimen (specimen) 08/06/2018 9:08 AM CDT 08/06/2018 9:17 AM CDT Narrative [facility] - 08/06/2018 9:42 AM CDT us Jamaica Montoya DIRECTOR OF UNDERGRADUATE ADMISSIONS LAB BLOOD ORDERABLES Final Result [facility] Department [place] [address] documented in this encounter Visit Diagnoses Diagnosis Encounter for person encountering health services Malignant neoplasm of upper-inner quadrant of left breast in female, estrogen receptor negative (HCC) documented in this encounter Orders Appointment Requests Count Last Ordered Date Fi rst Ordered Date ONCBCN LAB APPOINTMENT 1 08/06/2018 documented in this encounter Care Teams Structural Steel Erector Relationship Specialty Start Date End Date Ravi Smith MD PCP - General 11/04/17 09/27/21 Aft, Kianna Machado MD PhD [address] [place] [address] Surgeon Surgical Oncology 11/22/17 Santiago Gilbert MD [address] [place] [address] Crusher Wet Ground Mica Gastroenterology 11/22/17 documented as of this encounter
--- OUTSIDE RECORDS SUMMARY | 2024-04-24 14:58 | XMS_ITS | Encounter Summary ---
Author Organization [facility] Address [address] [place] [address] Phone Care Team Providers Care Truck Technician Name Role Phone Ravi Smith MD Primary Care Provider [phone] Aft, Kianna Machado MD PhD Unavailable [phone] Santiago Gilbert MD Unavailable [phone] Encounter Details Date Type Department Care Team (Late st Contact Info) Description 07/24/2018 Orders Only [facility] Oncology [address] [place] [address] Abbi Ventura MD [address] [facility] [address] [place] [address] Antineoplastic chemotherapy induced anemia (Primary Dx) Social History Tobacco Use Types Packs/Day Years Used Date Smoking Tobacco: Former Cigarettes 2015 Smokeless Tobacco: Never Alcohol Use Standard Drinks/Week Comments Yes 0 (1 standard drink = 0.6 oz pur e alcohol) socially Comments No Sex and Gender Information Value Date Recorded Sex Assigned at Not on file Legal Sex Female 1:06 AM 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 Gender Identity Not on file Sexual Orientation Not on file documented as of this encounter Plan of Treatment Not on file documented as of this encounter Visit Diagnoses Diagnosis Antineoplastic chemotherapy induced anemia- Primary documented in this encounter Care Teams Truck Technician Relationship Specialty Start Date End Date Ravi Smith MD PCP - General 11/04/17 09/27/21 Aft, Kianna Machado MD PhD [address] [place] [address] Surgeon Surgical Oncology 11/22/17 Santiago Gilbert MD [address] [place] [address] Marketing Assistant Manager Gastroenterology 11/22/17 documented as of this encounter
--- OUTSIDE RECORDS SUMMARY | 2024-04-24 14:58 | XMS_ITS | Encounter Summary ---
Author Organization [facility] Address [address] [place] [address] Phone Care Team Providers Care Hazmat Truck Driver Name Role Phone Ravi Smith MD Primary Care Provider [phone] Aft, Kianna Machado MD PhD Unavailable [phone] Santiago Gilbert MD Unavailable [phone] Reason for Visit * Reason Comments Chemotherapy * Episode Based Medications (Routine) - Closed Specialty Diagnoses / Procedures Referred By Vijaya simpson Referred To Contact Oncology Diagnoses Malignant neoplasm of upper-inner quadrant of left breast in female, estrogen receptor negative (HCC) Encounter for person encountering health services Procedures HI DOXORUBIC HCL 10 MG VL CHEMO HI CYCLOPHOSPHAMIDE 100 MG INJ HI INJECTION, PEGFILGRASTIM 6MG HI PALONOSETRON HCL HI FOSAPREPITANT INJECTION Dose-Dense AC: DOXOrubicin (ADRIAMYCIN) / Cyclophosphamide) with Abbi Chavez MD [address] [facility] [address] [address] [place] [address] Phone: tel: fax: [facility] [address] [place] [address] Phone: tel: fax: Referral ID Status Reason Start Date Expiration Date Visits Re quested Visits Authorized [id number] Closed 06/25/2018 09/02/2018 1 36 Encounter Details Date Type Department Care Team (Late st Contact Info) Description 08/12/2018 8:30 AM CDT Infusion [facility] Oncology [address] [place] [address] Encounter for person encountering health services (Primary [...] on file 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
--- OUTSIDE RECORDS SUMMARY | 2024-04-24 14:58 | XMS_ITS | Encounter Summary ---
Author Organization [facility] Address [address] [place] [address] Phone Care Team Providers Care Grants Analyst Name Role Phone Ravi Smith MD Primary Care Provider [phone] Aft, Kianna Machado MD PhD Unavailable [phone] Santiago Gilbert MD Unavailable [phone] Encounter Details Date Type Department Care Team (Late st Contact Info) Description 08/06/2018 Orders Only [facility] [address] [place] [address] Dinorah Brizuela, KAM [address] [place] [address] Social History Tobacco Use Types Packs/Day Years Used Date Smoking Tobacco: Former Cigarettes 2015 Smokeless Tobacco: Never Alcohol Use Standard Drinks/Week Comments Yes 0 (1 standard drink = 0.6 oz pur e alcohol) socially Comments No Sex and Gender Information Value Date Recorded Sex Assigned at Not on file 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
--- OUTSIDE RECORDS SUMMARY | 2024-04-24 14:58 | XMS_ITS | Encounter Summary ---
Author Organization 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 Ventura to discuss TC Procedures ONCBCN CLINIC APPOINTMENT REQUEST RETURN Jamaica Montoya, KAM [address] [place] [address] Phone: tel: fax: Abbi Ventura MD [address] [facility] [address] [address] [place] [address] Phone: tel: fax: Referral ID Status Reason Start Date Expiration Date V isits Requested Visits Authorized [id number] Closed Specialty Services Required 06/04/2018 05/05/2019 99 99 Encounter Details Date Type Department Care Team (Late st Contact Info) Description 07/23/2018 12:00 PM CDT Office Visit [facility] On[facility] [address] [place] [address] Jamaica Montoya, KAM [address] [place] [address] [address] Antineoplastic chemotherapy induced anemia (Primary Dx); Encounter [...] file 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 Cloud[employer] My risk showed no mutation in MLH [...] Recent labs, radiology and pathology reviewed in [facility]ESSMENT: [id number] disease, Stage IIC colon [...] Practitioner for Dr. Abbi Ventura Medical Oncology [facility] documented in this encounter Plan of Treatment Not on file documented as of this encounter Results * (ABNORMAL) Comprehensive metabolic panel (08/06/2018 9:08 AM CDT) Sodium 145 135 - 145 mmol/L [facility] Potassium, pl 3.5 3.3 - 4.9 mmol/L [facility] Chloride 106 97 - 110 mmol/L [facility] CO2 25 22 - 32 mmol/L [facility] Anion gap 14 2 - 15 mmol/L [facility] BUN 16 8 - 25 mg/dL [facility] Creatinine 1.22(H) 0.60 - 1.10 mg/dL [facility] Glucose 190 70 - 199 mg/dL [facility] [...] 2017. Calcium 10.1 8.5 - 10.3 mg/dL [facility] Bilirubin, total 0.5 0.1 - 1.2 mg/dL [facility] Protein, pl 6.7 6.5 - 8.5 g/dL [facility] Albumin 4.2 3.5 - 5.0 g/dL [facility] Alk phos 103 40 - 130 Units/L [facility] ALT 19 7 - 45 Units/L [facility] AST 25 10 - 45 Units/L [facility] Blood specimen (specimen) 08/06/2018 9:08 AM CDT 08/06/2018 9:17 AM CDT Narrative [facility] - 08/06/2018 9:42 AM CDT us Jamaica Montoya RAILCAR BRAKE OPERATOR LAB BLOOD ORDERABLES Final Result [facility] Department [place] [address] * (ABNORMAL) CBC with auto differential (08/06/2018 9:08 AM CDT) WBC 13.8(H) 3.8 - 9.9 K/cumm [facility] Hgb 8.8(L) 11.9 - 15.5 g/dL [facility] Hct 26.2(L) 35.6 - 45.5 % [facility] Plt 97(L) 150 - 400 K/cumm [facility] MPV 10.0 9.1 - 12.3 fL [facility] RBC 2.66(L) 3.90 - 5.20 M/cumm [facility] MCV 98.5(H) 81.3 - 96.4 fL [facility] MCH 33.1 27.1 - 33.3 pg [facility] MCHC 33.6 32.3 - 35.7 g/dL [facility] RDW CV 14.9 11.1 - 14.9 % [facility] RDW SD 50.5(H) 35.7 - 48.1 fL [facility] NRBC abs 0.05(H) 0.00 - 0.01 K/cumm [facility] Blood specimen (specimen) 08/06/2018 9:08 AM CDT 08/06/2018 9:17 AM CDT Narrative [facility] - 08/06/2018 9:21 AM CDT Jamaica Montoya RAILCAR BRAKE OPERATOR LAB BLOOD ORDERABLES Final Result [facility] Department [place] [address] documented in this encounter Visit Diagnoses Diagnosis [...] 08/06/2018 documented in this encounter Care Teams Director Of Cardiology Relationship Specialty Start Date End Date Ravi Smith MD PCP - General 11/04/17 09/27/21 Aft, Kianna Machado MD PhD [address] [place], [place] [id number] Surgeon Surgical Oncology 11/22/17 Santiago Gilbert MD [address] [place] [address] Peanut Picker Gastroenterology 11/22/17 documented as of this encounter
--- OUTSIDE RECORDS SUMMARY | 2024-04-24 14:58 | XMS_ITS | Encounter Summary ---
Author Organization [facility] Address [address] [place] [address] Phone Care Team Providers Care Elocution Teacher Name Role Phone Ravi Smith MD Primary Care Provider [phone] Aft, Kianna Machado MD PhD Unavailable [phone] Santiago Gilbert MD Unavailable [phone] Reason for Visit * Episode Based Medications (Routine) - Closed Specialty Diagnoses / Procedures Referred By Vijaya t Referred To Contact Oncology Diagnoses Malignant neoplasm of upper-inner quadrant of left breast in female, estrogen receptor negative (HCC) Encounter for person encountering health services Procedures MT DOXORUBIC HCL 10 MG VL CHEMO MT CYCLOPHOSPHAMIDE 100 MG INJ MT INJECTION, PEGFILGRASTIM 6MG MT PALONOSETRON HCL MT FOSAPREPITANT INJECTION Dose-Dense AC: DOXOrubicin (ADRIAMYCIN) / Cyclophosphamide) with Abbi Chavez MD [address] [place] [address] Phone: tel: fax: [facility] [address] [place] [address] Phone: tel: fax: Referral ID Status Reason Start Date Expiration Date Visits Re quested Visits Authorized [id number] Closed 06/25/2018 09/02/2018 1 36 Encounter Details Date Type Department Care Team (Latest Contact Info) Description 08/12/2018 8:00 AM CDT Clinical Support [facility] [address] [place] [address] Jamaica Montoya, CHIEF ORTHOPTIST [address] [place] [address] Trena Obando MD [address] [place] [address] Encounter for person encountering health services; Malignant [...] on file 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 Gender Identity Not on file Sexual [...] Magnesium (10/15/2018 10:00 AM CDT) Pathologist [facility] Magnesium 1.5 1.4 - 2.5 mg/dL [facility] Blood specimen (specimen) 10/15/2018 10:00 AM CDT 10/15/2018 10:08 AM CDT Narrative [facility] - 10/15/2018 11:39 AM CDT Jamaica Montoya CHIEF ORTHOPTIST LAB BLOOD ORDERABLES Final Result Performing Organization Address City/[facility] Co de Phone Number [facility] [place] [address] * CEA (08/27/2018 11:03 AM CDT) Pathologist [facility] CEA 2.7 <=5.0 ng/mL [facility] Comment: Interpretative Data: Reference Range: Non-Smokers: 0.0 - 5.0 ng/mL Smokers: 0.0 ? 6.5 ng/mL This test was developed and its performance characteristics determined by the [facility] in a manner consistent with CLIA requirements. This test has not been cleared or approved by the U.S. Food and Drug Administration. Current interpretive data was last revised 2018. Blood specimen (specimen) 08/27/2018 11:03 AM CDT 08/27/2018 1:46 PM CDT Narrative [facility] - 08/27/2018 2:28 PM CDT Jamaica Montoya CHIEF ORTHOPTIST LAB BLOOD ORDERABLES Final Result Performing Organization Address [facility] Co de Phone Number [facility] Department [place] [address] * (ABNORMAL) Differential, auto (08/12/2018 8:25 AM CDT) Pathologist [facility] Neutrophil abs 5.0 1.7 - 6.5 K/cumm [facility] Imm gran abs 0.1 0.0 - 0.1 K/cumm [facility] Lymphocyte abs 0.7(L) 0.8 - 3.3 K/cumm [facility] Monocyte abs 0.6 0.2 - 0.8 K/cumm [facility] Eosinophil abs 0.0 0.0 - 0.5 K/cumm [facility] Basophil abs 0.1 0.0 - 0.1 K/cumm [facility] Neutrophil pct 77.8 % [facility] Comment: Interpretive Data Percent cell count reference ranges are not reported, since discordance with absolute values may lead to misinterpretation of CBC data. Current Interpretive Data was last revised on 2017. Imm gran pct 0.9 % [facility] Comment: Interpretive Data Percent cell count reference ranges are not reported, since discordance with absolute values may lead to misinterpretation of CBC data. Current Interpretive Data was last revised on 2017. Lymphocyte pct 10.9 % [facility] Comment: Interpretive Data Percent cell count reference ranges are not reported, since discordance with absolute values may lead to misinterpretation of CBC data. Current Interpretive Data was last revised on 2017. Monocyte pct 9.0 % [facility] Comment: Interpretive Data Percent cell count reference ranges are not reported, since discordance with absolute values may lead to misinterpretation of CBC data. Current Interpretive Data was last revised on 2017. Eosinophil pct 0.5 % [facility] Comment: Interpretive Data Percent cell count reference ranges are not reported, since discordance with absolute values may lead to misinterpretation of CBC data. Current Interpretive Data was last revised on 2017. Basophil pct 0.9 % [facility] Comment: Interpretive Data Percent cell count reference ranges are not reported, since discordance with absolute values may lead to misinterpretation of CBC data. Current Interpretive Data was last revised on 2017. Blood specimen (specimen) 08/12/2018 8:25 AM CDT 08/12/2018 8:28 AM CDT Narrative [facility] - 08/12/2018 8:32 AM CDT Jamaica Montoya CHIEF ORTHOPTIST LAB BLOOD ORDERABLES Final Result [facility] Department [place] [address] * (ABNORMAL) CBC with auto differential (08/12/2018 8:25 AM CDT) Pathologist [facility] WBC 6.4 3.8 - 9.9 K/cumm [facility] Hgb 8.2(L) 11.9 - 15.5 g/dL [facility] Hct 25.5(L) 35.6 - 45.5 % [facility] Plt 160 150 - 400 K/cumm [facility] MPV 9.0(L) 9.1 - 12.3 fL [facility] RBC 2.57(L) 3.90 - 5.20 M/cumm [facility] MCV 99.2(H) 81.3 - 96.4 fL [facility] MCH 31.9 27.1 - 33.3 pg [facility] MCHC 32.2(L) 32.3 - 35.7 g/dL [facility] RDW CV 16.0(H) 11.1 - 14.9 % [facility] RDW SD 56.4(H) 35.7 - 48.1 fL [facility] NRBC abs 0.00 0.00 - 0.01 K/cumm [facility] Blood specimen (specimen) 08/12/2018 8:25 AM CDT 08/12/2018 8:28 AM CDT Narrative [facility] - 08/12/2018 8:32 AM CDT Jamaica Montoya CHIEF ORTHOPTIST LAB BLOOD ORDERABLES Final Result [facility] Department [place] [address] * (ABNORMAL) Comprehensive metabolic panel (08/12/2018 8:25 AM CDT) Pathologist [facility] Sodium 140 135 - 145 mmol/L [facility] Potassium, pl 3.8 3.3 - 4.9 mmol/L [facility] Chloride 105 97 - 110 mmol/L [facility] CO2 24 22 - 32 mmol/L [facility] Anion gap 11 2 - 15 mmol/L [facility] BUN 19 8 - 25 mg/dL [facility] Creatinine 1.27(H) 0.60 - 1.10 mg/dL [facility] Glucose 174 70 - 199 mg/dL [facility] Calcium 9.0 8.5 - 10.3 mg/dL [facility] Bilirubin, total 0.5 0.1 - 1.2 mg/dL [facility] Protein, pl 6.7 6.5 - 8.5 g/dL [facility] Albumin 4.0 3.5 - 5.0 g/dL [facility] Alk phos 84 40 - 130 Units/L [facility] ALT 16 7 - 45 Units/L [facility] AST 24 10 - 45 Units/L [facility] Blood specimen (specimen) 08/12/2018 8:25 AM CDT 08/12/2018 8:28 AM CDT Narrative [facility] - 08/12/2018 8:51 AM CDT Jamaica Montoya CHIEF ORTHOPTIST LAB BLOOD ORDERABLES Final Result [facility] Department [place] [address] documented in this encounter Visit Diagnoses Diagnosis Encounter for person encountering health services Malignant neoplasm of upper-inner quadrant of left breast in female, estrogen receptor negative (HCC) documented in this encounter Orders Appointment Requests Count Last Ordered Date Fi rst Ordered Date ONCBCN LAB APPOINTMENT 1 08/12/2018 documented in this encounter Care Teams Elocution Teacher Relationship Specialty Start Date End Date Ravi Smith MD PCP - General 11/04/17 09/27/21 Aft, Kianna Machado MD PhD [address] [place] [address] Surgeon Surgical Oncology 11/22/17 Santiago Gilbert MD [address] [place] [address] Clinical Editor Gastroenterology 11/22/17 documented as of this encounter
--- OUTSIDE RECORDS SUMMARY | 2024-04-24 14:59 | XMS_ITS | Encounter Summary ---
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) Procedures [id number]: (Fluorouracil / Leucovorin / Oxaliplatin) 14 Day Cycles Abbi Ventura MD [address] [facility] [address] [place] [address] Phone: tel: fax: [facility] [address] [place] [address] Phone: tel: Referral ID Status Reason Start Date Expiration Date Visits Re quested Visits Authorized [id number] Closed 01/31/2018 05/05/2019 1 18 Encounter Details Date Type Department Care Team (Latest Contact Info) Description 05/21/2018 10:30 AM PHOTONIC LABORATORY TECHNICIAN Clinical Support [facility] [address] [place] [address] Malignant neoplasm of descending colon (CMS/HCC) Social History Tobacco Use Types Packs/Day Years Used Date Smoking Tobacco: Former Cigarettes 1 2015 Smokeless Tobacco: Never Alcohol Use Standard Drinks/Week Comments Yes 0 (1 standard drink = 0.6 oz pur e alcohol) socially Comments No Sex and Gender Information Value Date Recorded Sex Assigned at Not on file 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 Female 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 Gender Identity Not on file Sexual Orientation Not on file documented as of this encounter Plan of Treatment Not on file documented as of this encounter Procedures Procedure Name Priority Date/Time Associated Diagnosis Comments DIFFERENTIAL AUTO Routine 05/21/2018 10: 20 AM PHOTONIC LABORATORY TECHNICIAN Malignant neoplasm of descending colon (CMS/HCC) CBC WITH AUTO DIFFERENTIAL Routine 05/21/2018 10:20 AM PHOTONIC LABORATORY TECHNICIAN Malignant neoplasm of descending colon (CMS/HCC) CEA Routine 05/21/2018 10:20 AM PHOTONIC LABORATORY TECHNICIAN Malignant neoplasm of descending colon (CMS/HCC) COMPREHENSIVE METABOLIC PANEL STAT 05/21/2018 10:20 AM PHOTONIC LABORATORY TECHNICIAN Malignant neoplasm of descending colon (CMS/HCC) documented in this encounter Results * Differential, auto (05/21/2018 10:20 AM PHOTONIC LABORATORY TECHNICIAN) Neutrophil abs 3.0 1.7 - 6.5 K/cumm [...] revised on 2017. Lymphocyte pct 22.5 % [facility] Comment: Interpretive Data Percent cell count reference ranges are not reported, since discordance with absolute values may lead to misinterpretation of CBC data. Current Interpretive Data was last revised on 2017. Monocyte pct 9.8 % [facility] Comment: Interpretive Data Percent cell count reference ranges are not reported, since discordance with absolute values may lead to misinterpretation of CBC data. Current Interpretive Data was last revised on 2017. Eosinophil pct 2.5 % [facility] Comment: Interpretive Data Percent cell count reference ranges are not reported, since discordance with absolute values may lead to misinterpretation of CBC data. Current Interpretive Data was last revised on 2017. Basophil pct 1.0 % [facility] Comment: Interpretive Data Percent cell count reference ranges are not reported, since discordance with absolute values may lead to misinterpretation of CBC data. Current Interpretive Data was last revised on 2017. Blood specimen (specimen) 05/21/2018 10:20 AM PHOTONIC LABORATORY TECHNICIAN 05/21/2018 10:27 AM PHOTONIC LABORATORY TECHNICIAN Narrative [facility] - 05/21/2018 10:30 AM PHOTONIC LABORATORY TECHNICIAN Jamaica Montoya REGISTERED NURSE BEHAVIORAL HEALTH LAB BLOOD ORDERABLES Final Result [facility] [place] [address] * (ABNORMAL) Comprehensive metabolic panel (05/21/2018 10:20 AM PHOTONIC LABORATORY TECHNICIAN) Sodium 140 135 - 145 mmol/L [facility] Potassium, pl 3.9 3.3 - 4.9 mmol/L [facility] Chloride 103 97 - 110 mmol/L [facility] CO2 23 22 - 32 mmol/L [facility] Anion gap 14 2 - 15 mmol/L [facility] BUN 19 8 - 25 mg/dL [facility] Creatinine 0.95 0.60 - 1.10 mg/dL [facility] Glucose 243(H) 70 - 199 mg/dL [facility] [...] 2017. Calcium 9.4 8.5 - 10.3 mg/dL [facility] Bilirubin, total 0.8 0.1 - 1.2 mg/dL [facility] Protein, pl 6.5 6.5 - 8.5 g/dL [facility] Albumin 4.0 3.5 - 5.0 g/dL [facility] Alk phos 92 40 - 130 Units/L [facility] ALT 45 7 - 45 Units/L [facility] AST 48(H) 10 - 45 Units/L [facility] Blood specimen (specimen) 05/21/2018 10:20 AM PHOTONIC LABORATORY TECHNICIAN 05/21/2018 10:27 AM PHOTONIC LABORATORY TECHNICIAN Narrative [facility] - 05/21/2018 10:53 AM [facility] Jamaica Montoya REGISTERED NURSE BEHAVIORAL HEALTH LAB BLOOD ORDERABLES Final Result [facility] [place] [address] * CEA (05/21/2018 10:20 AM PHOTONIC LABORATORY TECHNICIAN) CEA 4.0 <=5.0 ng/mL [facility] Comment: Interpretative Data: Reference Range: Non-Smokers: 0.0 - 5.0 ng/mL Smokers: 0.0 ? 6.5 ng/mL This test was developed and its performance characteristics determined by the [facility] in a manner consistent with CLIA requirements. This test has not been cleared or approved by the U.S. Food and Drug Administration. Current interpretive data was last revised 2018. Blood specimen (specimen) 05/21/2018 10:20 AM PHOTONIC LABORATORY TECHNICIAN 05/21/2018 11:44 AM PHOTONIC LABORATORY TECHNICIAN Narrative [facility] - 05/21/2018 12:35 PM PHOTONIC LABORATORY TECHNICIAN us Jamaica Montoya REGISTERED NUR[facility]IORAL HEALTH LAB BLOOD ORDERABLES Final Result [facility] Department [place] [address] * (ABNORMAL) CBC with auto differential (05/21/2018 10:20 AM PHOTONIC LABORATORY TECHNICIAN) Pathologist [facility] WBC 4.8 3.8 - 9.9 K/cumm [facility] Hgb 9.5(L) 11.9 - 15.5 g/dL [facility] Hct 28.0(L) 35.6 - 45.5 % [facility] Plt 87(L) 150 - 400 K/cumm [facility] MPV 9.2 9.1 - 12.3 fL [facility] RBC 2.79(L) 3.90 - 5.20 M/cumm [facility] MCV 100.4(H) 81.3 - 96.4 fL [facility] MCH 34.1(H) 27.1 - 33.3 pg [facility] MCHC 33.9 32.3 - 35.7 g/dL [facility] RDW CV 18.7(H) 11.1 - 14.9 % [facility] RDW SD 67.5(H) 35.7 - 48.1 fL [facility] NRBC abs 0.03(H) 0.00 - 0.01 K/cumm [facility] Blood specimen (specimen) 05/21/2018 10:20 AM PHOTONIC LABORATORY TECHNICIAN 05/21/2018 10:27 AM PHOTONIC LABORATORY TECHNICIAN Narrative [facility] - 05/21/2018 10:30 AM PHOTONIC LABORATORY TECHNICIAN us Jamaica Montoya REGISTERED NUR[facility] BEH[facility]IORAL HEALTH LAB BLOOD ORDERABLES Final Result [facility] [place] [address] documented in this encounter Visit Diagnoses Diagnosis 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
--- OUTSIDE RECORDS SUMMARY | 2024-04-24 14:59 | XMS_ITS | Encounter Summary ---
Author Organization [facility] Address [address] [place] [address] Phone Care Team Providers Care Supervisor Metalizing Name Role Phone Ravi Smith MD Primary Care Provider [phone] Aft, Kianna Machado MD PhD Unavailable [phone] Santiago Gilbert MD Unavailable [phone] Reason for Visit * Episode Based Medications (Routine) - Closed Specialty Diagnoses / Procedures Referred By Vijaya simpson Referred To Contact Oncology Diagnoses Malignant neoplasm of upper-inner quadrant of left breast in female, estrogen receptor negative (HCC) Encounter for person encountering health services Procedures [place] DOXORUBIC HCL 10 MG VL CHEMO [place] CYCLOPHOSPHAMIDE 100 MG INJ [place] INJECTION, PEGFILGRASTIM 6MG [place] PALONOSETRON HCL [place] FOSAPREPITANT INJECTION Dose-Dense AC: DOXOrubicin (ADRIAMYCIN) / Cyclophosphamide) with Abbi Chavez MD [address] [place] [address] Phone: tel: fax: [facility] On[facility] [address] [place] [address] Phone: tel: fax: Referral ID Status Reason Start Date Expiration Date Visits Re quested Visits Authorized [id number] Closed 06/25/2018 09/02/2018 1 36 Encounter Details Date Type Department Care Team (Late st Contact Info) Description 07/09/2018 1:00 PM CUSTOMER OPERATIONS SPECIALIST Infusion [facility]cology [address] [place] [address] Encounter for person encountering health services (Primary [...] Legal Sex Female 1:06 AM CUSTOMER OPERATIONS SPECIALIST Gender Identity Not on file Sexual Orientation Not on file documented as of this encounter Nursing Notes * Yolette Meyers RN - 07/09/2018 1:00 PM CST Tolerated treatment without difficulty. Patient had problems with mouth sores with last treatment. Pt to try warm salt water and magic mouthwash. OMER OPERATIONS SPECIALIST OMER OPERATIONS SPECIALIST documented in this encounter Plan of [...] negative (HCC) New Bag 07/09/2018 2:09 PM CUSTOMER OPERATIONS SPECIALIST 1,356 mg 635.6 mL/hr dexamethasone (DECADRON) 10 mg in sodium chloride 0.9% 50 mL IVPB 10 mg, intravenous, at 153 mL/hr, Administer over 20 Minutes, Once, On Sat07/09/18 at 1400, For 1 doseIndications:Encount er for person encountering health services,Malignant neoplasm of upper-inner quadrant of left breast in female, estrogen receptor negative (HCC) New 07/09/2018 1:24 PM CUSTOMER OPERATIONS SPECIALIST 10 mg 153 mL/hr DOXOrubicin (ADRIAMYCIN) 2 [...] receptor negative (HCC) New 07/09/2018 1:57 PM CUSTOMER OPERATIONS SPECIALIST 135.6 mg 406.8 mL/hr fosaprepitant (EMEND) 150 mg in sodium chloride 0.9% 150 mL IVPB 150 mg, intravenous, at 450 mL/hr, Administer over 20 Minutes, Once, On Sat07/09/18 at 1400, For 1 doseIndications:Encount er for person encountering health services,Malignant neoplasm of upper-inner quadrant of left breast in female, estrogen receptor negative (HCC) New 07/09/2018 1:28 PM CUSTOMER OPERATIONS SPECIALIST 150 mg 450 mL/hr palonosetron injection 250 mcg 250 mcg (0.25 mg), intravenous, Once, On Sat07/09/18 at 1400, For 1 dose, For IV push, administer over 30 seconds.Indications:Enc ounter for person encountering health services,Malignant neoplasm of upper-inner quadrant of left breast in female, estrogen receptor negative (HCC) Given 07/09/2018 1:24 PM CUSTOMER OPERATIONS SPECIALIST 250 mcg pegfilgrastim (NEULASTA ON-BODY) injection 6 mg 6 mg, subcutaneous, Once, On Sat07/09/18 at 1400, For 1 dose, Attach to the patient as directed following the completion of chemotherapy - to be given OUTPATIENT only Refrigerate. ON-PRO deviceIndications:Encou nter for person encountering health services,Malignant neoplasm of upper-inner quadrant of left breast in female, estrogen receptor negative (HCC) Given 07/09/2018 2:10 PM CUSTOMER OPERATIONS SPECIALIST 6 mg Right Lower Abdomen documented in this encounter Orders Nursing Count Last Ordered Date First Orde red Date ONCBCN TREATMENT PARAMETERS 6 1 07/09/2018 Appointment Requests Count Last Ordered Date Fi rst Ordered Date ONCBCN RETURN CHEMO 2HRS 1 07/09/2018 documented in this encounter Care Teams Supervisor Metalizing Relationship Specialty Start Date End Date Ravi Smith MD PCP - General 11/04/17 09/27/21 Aft, Kianna Machado MD PhD [address] [place] [address] Surgeon Surgical Oncology 11/22/17 Santiago Gilbert MD [address] [place] [address] Ophthalmology Surgical Technician Gastroenterology 11/22/17 documented as of this encounter
--- OUTSIDE RECORDS SUMMARY | 2024-04-24 14:59 | XMS_ITS | Encounter Summary ---
Author Organization [facility] Address [address] [place] [address] Phone Care Team Providers Care Stone Decorator Name Role Phone Ravi Smith MD Primary Care Provider [phone] Aft, Kianna Machado MD PhD Unavailable [phone] Santiago Gilbert MD Unavailable [phone] Encounter Details Date Type Department Care Team (Late st Contact Info) Description 05/28/2018 Orders Only [facility] Oncology [address] [place] [address] Abbi Ventura MD 10 [facility] [address] [place] [address] Other acute pulmonary embolism without acute cor [...] on file Legal Sex Female 1:06 AM AMUSEMENT PARK RIDE MECHANIC Gender Identity Not on file Sexual [...] Primary documented in this encounter Care Teams Stone Decorator Relationship Specialty Start Date End Date Ravi Smith MD PCP - General 11/04/17 09/27/21 Aft, Kianna Machado MD PhD [address] [place] [address] Surgeon Surgical Oncology 11/22/17 Santiago Gilbert MD [address] [place] [address] Signal Timer Gastroenterology 11/22/17 documented as of this encounter
--- OUTSIDE RECORDS SUMMARY | 2024-04-24 14:59 | XMS_ITS | Encounter Summary ---
Author Organization [facility] Address [address] [place] [address] Phone Care Team Providers Care Start Up Specialist Name Role Phone Ravi Smith MD Primary Care Provider [phone] Kianna Bunch MD PhD Unavailable [phone] Santiago Gilbert MD Unavailable [phone] Encounter Details Date Type Department Care Team (Late st Contact Info) Description 05/21/2018 Orders Only [facility] Oncology [address] [place] [address] Fatemeh Zarate RN Social History Tobacco Use Types Packs/Day Years Used Date Smoking Tobacco: Former Cigarettes 2015 Smokeless Tobacco: Never Alcohol Use Standard Drinks/Week Comments Yes 0 (1 standard drink = 0.6 oz pur e alcohol) socially Comments No Sex and Gender Information Value Date Recorded Sex Assigned at Not on file Legal Sex Female 1:06 AM ASSISTANT STORE MANAGER OPERATIONS Gender Identity Not on file Sexual Orientation [...] documented as of this encounter Care Teams Start Up Specialist Relationship Specialty Start Date End Date Ravi Smith MD PCP - General 11/04/17 09/27/21 Aft, Kianna Machado MD PhD [address] [place] [address] Surgeon Surgical Oncology 11/22/17 Santiago Gilbert MD [address] [place] [address] Canvas Cutter Hand Gastroenterology 11/22/17 documented as of this encounter
--- OUTSIDE RECORDS SUMMARY | 2024-04-24 14:59 | XMS_ITS | Encounter Summary ---
Author Organization [facility] Address [address] [place] [address] Phone Care Team Providers Care Cruise Coordinator Name Role Phone Ravi Smith MD Primary Care Provider [phone] Aft, Kianna Machado MD PhD Unavailable [phone] Santiago Gilbert MD Unavailable [phone] Encounter Details Date Type Department Care Team (Late st Contact Info) Description 05/28/2018 Orders Only [facility] Oncology [address] [place] [address] Abbi Ventura MD [address] [facility] [address] [place] [address] Malignant neoplasm of upper-inner quadrant of left [...] file Legal Sex Female 1:06 AM MINE PRODUCTION ENGINEER Gender Identity Not on file Sexual [...] (ABNORMAL) Comprehensive metabolic panel (06/04/2018 8:30 AM MINE PRODUCTION ENGINEER) Sodium 137 135 - 145 mmol/L [facility] Potassium, pl 3.4 3.3 - 4.9 mmol/L [facility] Chloride 101 97 - 110 mmol/L [facility] CO2 22 22 - 32 mmol/L [facility] Anion gap 14 2 - 15 mmol/L [facility] BUN 18 8 - 25 mg/dL [facility] Creatinine 0.88 0.60 - 1.10 mg/dL [facility] Glucose 385(H) 70 - 199 mg/dL [facility] Comment: Interpretive Data Fasting glucose [...] 2017. Calcium 9.6 8.5 - 10.3 mg/dL [facility] Bilirubin, total 0.5 0.1 - 1.2 mg/dL [facility] Protein, pl 6.8 6.5 - 8.5 g/dL [facility] Albumin 4.0 3.5 - 5.0 g/dL [facility] Alk phos 98 40 - 130 Units/L [facility] ALT 47(H) 7 - 45 Units/L [facility] AST 46(H) 10 - 45 Units/L [facility] Blood specimen (specimen) 06/04/2018 8:30 AM MINE PRODUCTION ENGINEER 06/04/2018 8:35 AM MINE PRODUCTION ENGINEER Narrative [facility] - 06/04/2018 8:59 AM MINE PRODUCTION ENGINEER us Abbi Ventura MD LAB BLOOD ORDERABLES Final Resul t Performing Organization Address City/[facility]/ZIP Co de Phone Number [facility] [place] [address] * (ABNORMAL) CBC with auto differential (06/04/2018 8:30 AM MINE PRODUCTION ENGINEER) WBC 6.3 3.8 - 9.9 K/cumm [facility] Hgb 10.4(L) 11.9 - 15.5 g/dL [facility] Hct 30.4(L) 35.6 - 45.5 % [facility] Plt 118(L) 150 - 400 K/cumm [facility] MPV 9.4 9.1 - 12.3 fL [facility] RBC 2.99(L) 3.90 - 5.20 M/cumm [facility] MCV 101.7(H) 81.3 - 96.4 fL [facility] MCH 34.8(H) 27.1 - 33.3 pg [facility] MCHC 34.2 32.3 - 35.7 g/dL [facility] RDW CV 16.7(H) 11.1 - 14.9 % [facility] RDW SD 61.8(H) 35.7 - 48.1 fL [facility] NRBC abs 0.03(H) 0.00 - 0.01 K/cumm [facility] Blood specimen (specimen) 06/04/2018 8:30 AM MINE PRODUCTION ENGINEER 06/04/2018 8:35 AM MINE PRODUCTION ENGINEER Narrative [facility] - 06/04/2018 8:38 AM MINE PRODUCTION ENGINEER us Abbi Ventura MD LAB BLOOD ORDERABLES Final Resul t Performing Organization Address [facility] Co de Phone Number [facility] [place] [address] documented in this encounter Visit Diagnoses Diagnosis [...] documented as of this encounter Care Teams Cruise Coordinator Relationship Specialty Start Date End Date Ravi Smith MD PCP - General 11/04/17 09/27/21 Aft, Kianna Machado MD PhD [address] [place] [address] Surgeon Surgical Oncology 11/22/17 Santiago Gilbert MD [address] [place] [address] Lath Tier Gastroenterology 11/22/17 documented as of this encounter
--- OUTSIDE RECORDS SUMMARY | 2024-04-24 14:59 | XMS_ITS | Encounter Summary ---
Author Organization [facility] Address [address] [place] [address] Phone Care Team Providers Care Daytime Babysitter Name Role Phone Ravi Smith MD Primary Care Provider [phone] Aft, Kianna Machado MD PhD Unavailable [phone] Santiago Gilbert MD Unavailable [phone] Reason for Visit * Episode Based Medications (Routine) - Closed Specialty Diagnoses / Procedures Referred By Vijaya t Referred To Contact Oncology Diagnoses Malignant neoplasm of upper-inner quadrant of left breast in female, estrogen receptor negative (HCC) Encounter for person encountering health services Procedures ND DOXORUBIC HCL 10 MG VL CHEMO ND CYCLOPHOSPHAMIDE 100 MG INJ ND INJECTION, PEGFILGRASTIM 6MG ND PALONOSETRON HCL ND FOSAPREPITANT INJECTION Dose-Dense AC: DOXOrubicin (ADRIAMYCIN) / Cyclophosphamide) with Abbi Chavez MD [address] [place] [address] Phone: tel: fax: [facility] Oncology [address] [place] [address] Phone: tel: fax: Referral ID Status Reason Start Date Expiration Date Visits Re quested Visits Authorized [id number] Closed 06/25/2018 09/02/2018 1 36 Encounter Details Date Type Department Care Team (Latest Contact Info) Description 06/25/2018 8:30 AM NON DESTRUCTIVE TESTING ENGINEER Clinical Support [facility] Oncology [address] [place] [address] Malignant neoplasm of upper-inner quadrant of left [...] on file Legal Sex Female 1:06 AM NON DESTRUCTIVE TESTING ENGINEER Gender Identity Not on file Sexual Orientation Not on file documented as of this encounter Plan of Treatment Not on file documented as of this encounter Procedures Procedure Name Priority Date/Time Associated Diagnosis Comments DIFFERENTIAL AUTO Routine 06/25/2018 9:1 3 AM NON DESTRUCTIVE TESTING ENGINEER Malignant neoplasm of upper-inner quadrant of left breast in female, estrogen receptor negative (CMS/HCC) CBC WITH AUTO DIFFERENTIAL Routine 06/25/2018 9:13 AM NON DESTRUCTIVE TESTING ENGINEER Malignant neoplasm of upper-inner quadrant of left breast in female, estrogen receptor negative (CMS/HCC) COMPREHENSIVE METABOLIC PANEL STAT 06/25/2018 9:13 AM NON DESTRUCTIVE TESTING ENGINEER Malignant neoplasm of upper-inner quadrant of left breast in female, estrogen receptor negative (CMS/HCC) documented in this encounter Results * Differential, auto (06/25/2018 9:13 AM NON DESTRUCTIVE TESTING ENGINEER) Neutrophil abs 5.2 1.7 - 6.5 K/cumm [facility] Imm gran abs 0.0 0.0 - 0.1 K/cumm [facility] Lymphocyte abs 1.1 0.8 - 3.3 K/cumm [facility] Monocyte abs 0.5 0.2 - 0.8 K/cumm [facility] Eosinophil abs 0.2 0.0 - 0.5 K/cumm [facility] Basophil abs 0.0 0.0 - 0.1 K/cumm [facility] Neutrophil pct 73.2 % [facility] Comment: Interpretive Data Percent cell count reference ranges are not reported, since discordance with absolute values may lead to misinterpretation of CBC data. Current Interpretive Data was last revised on 2017. Imm gran pct 0.7 % [facility] Comment: Interpretive Data Percent cell count reference ranges are not reported, since discordance with absolute values may lead to misinterpretation of CBC data. Current Interpretive Data was last revised on 2017. Lymphocyte pct 15.4 % [facility] Comment: Interpretive Data Percent cell count reference ranges are not reported, since discordance with absolute values may lead to misinterpretation of CBC data. Current Interpretive Data was last revised on 2017. Monocyte pct 6.8 % [facility] Comment: Interpretive Data Percent cell count reference ranges are not reported, since discordance with absolute values may lead to misinterpretation of CBC data. Current Interpretive Data was last revised on 2017. Eosinophil pct 3.2 % [facility] Comment: Interpretive Data Percent cell count reference ranges are not reported, since discordance with absolute values may lead to misinterpretation of CBC data. Current Interpretive Data was last revised on 2017. Basophil pct 0.7 % [facility] Comment: Interpretive Data Percent cell count reference ranges are not reported, since discordance with absolute values may lead to misinterpretation of CBC data. Current Interpretive Data was last revised on 2017. Blood specimen (specimen) 06/25/2018 9:13 AM NON DESTRUCTIVE TESTING ENGINEER 06/25/2018 9:15 AM NON DESTRUCTIVE TESTING ENGINEER Narrative [facility] - 06/25/2018 9:19 AM NON DESTRUCTIVE TESTING ENGINEER us Abbi Ventura MD LAB BLOOD ORDERABLES Final Resul t [facility] Department [place] [address] * (ABNORMAL) Comprehensive metabolic panel (06/25/2018 9:13 AM NON DESTRUCTIVE TESTING ENGINEER) Sodium 141 135 - 145 mmol/L [facility] Potassium, pl 4.1 3.3 - 4.9 mmol/L [facility] Chloride 107 97 - 110 mmol/L [facility] CO2 26 22 - 32 mmol/L [facility] Anion gap 8 2 - 15 mmol/L [facility] BUN 15 8 - 25 mg/dL [facility] Creatinine 0.87 0.60 - 1.10 mg/dL [facility] Glucose 229(H) 70 - 199 mg/dL [facility] Comment: Interpretive Data Fasting glucose >/= [...] 2017. Calcium 9.4 8.5 - 10.3 mg/dL [facility] Bilirubin, total 0.3 0.1 - 1.2 mg/dL [facility] Protein, pl 6.3(L) 6.5 - 8.5 g/dL [facility] Albumin 3.7 3.5 - 5.0 g/dL [facility] Alk phos 76 40 - 130 Units/L [facility] ALT 29 7 - 45 Units/L [facility] AST 42 10 - 45 Units/L [facility] Blood specimen (specimen) 06/25/2018 9:13 AM NON DESTRUCTIVE TESTING ENGINEER 06/25/2018 9:15 AM NON DESTRUCTIVE TESTING ENGINEER Narrative [facility] - 06/25/2018 9:41 AM NON DESTRUCTIVE TESTING ENGINEER us Abbi Ventura MD LAB BLOOD ORDERABLES Final Resul t [facility] Department [place] [address] * (ABNORMAL) CBC with auto differential (06/25/2018 9:13 AM NON DESTRUCTIVE TESTING ENGINEER) WBC 7.1 3.8 - 9.9 K/cumm [facility] Hgb 10.1(L) 11.9 - 15.5 g/dL [facility] Hct 31.3(L) 35.6 - 45.5 % [facility] Plt 181 150 - 400 K/cumm [facility] MPV 9.4 9.1 - 12.3 fL [facility] RBC 2.99(L) 3.90 - 5.20 M/cumm [facility] MCV 104.7(H) 81.3 - 96.4 fL [facility] MCH 33.8(H) 27.1 - 33.3 pg [facility] MCHC 32.3 32.3 - 35.7 g/dL [facility] RDW CV 14.2 11.1 - 14.9 % [facility] RDW SD 54.4(H) 35.7 - 48.1 fL [facility] NRBC abs 0.00 0.00 - 0.01 K/cumm [facility] Blood specimen (specimen) 06/25/2018 9:13 AM NON DESTRUCTIVE TESTING ENGINEER 06/25/2018 9:15 AM NON DESTRUCTIVE TESTING ENGINEER Narrative [facility] - 06/25/2018 9:19 AM NON DESTRUCTIVE TESTING ENGINEER us Abbi Ventura MD LAB BLOOD ORDERABLES Final Resul t [facility] Department [place] [address] documented in this encounter Visit Diagnoses Diagnosis Malignant neoplasm of upper-inner quadrant of left breast in female, estrogen receptor negative (HCC) documented in this encounter Orders Appointment Requests Count Last Ordered Date Fi rst Ordered Date ONCBCN LAB APPOINTMENT 1 06/25/2018 documented in this encounter Care Teams Daytime Babysitter Relationship Specialty Start Date End Date Ravi Smith MD PCP - General 11/04/17 09/27/21 Aft, Kianna Machado MD PhD [address] [place] [address] Surgeon Surgical Oncology 11/22/17 Santiago Gilbert MD [address] [place] [address] Vegetables Cook Gastroenterology 11/22/17 documented as of this encounter
--- OUTSIDE RECORDS SUMMARY | 2024-04-24 14:59 | XMS_ITS | Encounter Summary ---
Author Organization 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 Ventura to discuss TC Procedures ONCBCN CLINIC APPOINTMENT REQUEST RETURN [place] Montoya, WEB DEVELOPMENT CONSULTANT 4 [facility] [address] [address] Phone: tel: fax: Abbi Ventura MD [address] [place] [address] Phone: tel: fax: Referral ID Status Reason Start Date Expiration Date V isits Requested Visits Authorized [id number] Closed Specialty Services Required 06/04/2018 05/05/2019 99 99 Encounter Details Date Type Department Care Team (Late st Contact Info) Description 07/09/2018 11:30 AM SUPERVISOR VENDOR QUALITY Office Visit [facility] Oncology [address] [place] [address] Abbi Ventura MD [address] [place] [address] Encounter for person encountering health services; Malignant [...] file Legal Sex Female 1:06 AM SUPERVISOR VENDOR QUALITY Gender Identity Not on file Sexual Orientation Not on file documented as of this encounter Last Filed Vital Signs Vital Sign Reading Time Taken Comments Blood Pressure 161/73 07/09/2018 12:46 PM SUPERVISOR VENDOR QUALITY Pulse 124 07/09/2018 12:46 PM SUPERVISOR VENDOR QUALITY Temperature 36.4 ??C (97.5 ??F) 07/09/2018 1 2:46 PM SUPERVISOR VENDOR QUALITY Respiratory Rate 16 07/09/2018 12:4 6 PM SUPERVISOR VENDOR QUALITY Oxygen Saturation 97% 07/09/2018 12: 46 PM SUPERVISOR VENDOR QUALITY Inhaled Oxygen Concentration - - Weight 108.7 kg (239 lb 9.6 oz) 019 12:46 PM SUPERVISOR VENDOR QUALITY Height 172.7 cm (5' 8 ) 07/09/2018 12:4 6 PM SUPERVISOR VENDOR QUALITY Body Mass Index 36.43 07/09/2018 12:46 PM SUPERVISOR VENDOR QUALITY documented in this encounter Ordered Prescriptions Prescription [...] F/u PCP regarding diabetes. Abbi Ventura MD Weederlead software qa engineer Division of Oncology Section of Medical Oncology [facility] Supervisor completed by using M*Modal Fluency Direct speaking software, therefore, transcriptionvariances may occur. RVISOR VENDOR QUALITY documented in this encounter Plan of Treatment Not on file documented as of this encounter Results * (ABNORMAL) Comprehensive metabolic panel (07/23/2018 11:16 AM CDT) Sodium 141 135 - 145 mmol/L [facility] Potassium, pl 3.1(L) 3.3 - 4.9 mmol/L [facility] Chloride 102 97 - 110 mmol/L [facility] CO2 27 22 - 32 mmol/L [facility] Anion gap 12 2 - 15 mmol/L [facility] BUN 11 8 - 25 mg/dL [facility] Creatinine 1.00 0.60 - 1.10 mg/dL [facility] Glucose 285(H) 70 - 199 mg/dL [facility] Comment: Interpretive Data Fasting glucose >/= 126 [...] [facility] ALT 18 7 - 45 Units/L [facility] AST 27 10 - 45 Units/L [facility] Blood specimen (specimen) 07/23/2018 11:16 AM CDT 07/23/2018 11:16 AM CDT Narrative [facility] - 07/23/2018 11:45 AM CDT Abbi Ventura MD LAB BLOOD ORDERABLES Final Resul t [facility] Department [place] [address] * (ABNORMAL) CBC with auto differential (07/23/2018 11:16 AM CDT) WBC 10.0(H) 3.8 - 9.9 K/cumm [facility] Hgb 8.6(L) 11.9 - 15.5 g/dL [facility] Hct 25.3(L) 35.6 - 45.5 % [facility] Plt 115(L) 150 - 400 K/cumm [facility] MPV 9.8 9.1 - 12.3 fL [facility] RBC 2.57(L) 3.90 - 5.20 M/cumm [facility] MCV 98.4(H) 81.3 - 96.4 fL [facility] MCH 33.5(H) 27.1 - 33.3 pg [facility] MCHC 34.0 32.3 - 35.7 g/dL [facility] RDW CV 13.3 11.1 - 14.9 % [facility] RDW SD 47.4 35.7 - 48.1 fL [facility] NRBC abs 0.07(H) 0.00 - 0.01 K/cumm [facility] Blood specimen (specimen) 07/23/2018 11:16 AM CDT 07/23/2018 11:16 AM CDT Narrative [facility] - 07/23/2018 11:20 AM CDT us Abbi Ventura MD LAB BLOOD ORDERABLES Final Resul t [facility] Department [place] [address] documented in this encounter Visit Diagnoses Diagnosis [...] 07/23/2018 documented in this encounter Care Teams Flat Lock Machine Operator Relationship Specialty Start Date End Date Ravi Smith MD PCP - General 11/04/17 09/27/21 Aft, Kianna Machado MD PhD [address] [place] [address] Surgeon Surgical Oncology 11/22/17 Santiago Gilbert MD [address] [place] [address] Chiropractic Doctor Gastroenterology 11/22/17 documented as of this encounter
--- OUTSIDE RECORDS SUMMARY | 2024-04-24 14:59 | XMS_ITS | Encounter Summary ---
Author Organization [facility] Address [address] [place] [address] Phone Care Team Providers Care Vice President Of Recruiting Name Role Phone Ravi Smith MD Primary Care Provider [phone] Aft, Kianna Machado MD PhD Unavailable [phone] Santiago Gilbert MD Unavailable [phone] Encounter Details Date Type Department Care Team (Late st Contact Info) Description 06/13/2018 Telephone [facility] Oncology [address] [place] [address] Abbi Ventura MD [address] [facility] [address] [place] [address] Social History Tobacco Use Types Packs/Day Years Used Date Smoking Tobacco: Former Cigarettes 2015 Smokeless Tobacco: Never Alcohol Use Standard Drinks/Week Comments Yes 0 (1 standard drink = 0.6 oz pur e alcohol) socially Comments No Sex and Gender Information Value Date Recorded Sex Assigned at Not on file Legal Sex Female 1:06 AM MOTOR LODGE CLERK Gender Identity Not on file Sexual Orientation Not on file documented as of this encounter Miscellaneous Notes * Telephone Encounter - Mag Duff MA - 06/13/2018 1:17 PM MOTOR LODGE CLERK ----- Message from Mag Duff MA sent at 05/21/2018 1:34 PM MOTOR LODGE CLERK ----- Regarding: Neuro ref 05/21/18 Neuro referral sent. F/up apt. Pt having leg weakness for several weeks worse the week after chemotherapy. PS 05/23/18 Per Rosana in [facility] chart has been sent for review. After [...] request. Shay Hall MD 06/03/2018 10:51 PM MOTOR LODGE CLERK Check with Trena Obando to see if [...] on 06/11/18 tried to reach pt to [facility]. No appointment scheduled. LM for pt asking her to call office. Need to figure out what is going on with this apt. PS 06/13/18 Per pt she is sawyer with Neuro on 08/14/18. Stated that was the earliest pt could be seen. Office stated they will call pt if there is a cx apt and move her apt sooner. PS R LODGE CLERK R LODGE CLERK documented in this encounter Plan of Treatment Not on file documented as of this encounter Visit Diagnoses Not on filedocumented in this encounter Care Teams Vice President Of Recruiting Relationship Specialty Start Date End Date Ravi Smtih MD PCP - General 11/04/17 09/27/21 Aft, Kianna Machado MD PhD [address] [place] [address] Surgeon Surgical Oncology 11/22/17 Santiago Gilbert MD [address] [place] [address] Guest Services Representative Gastroenterology 11/22/17 documented as of this encounter
--- OUTSIDE RECORDS SUMMARY | 2024-04-24 14:59 | XMS_ITS | Encounter Summary ---
Author Organization [facility] Address [address] [place] [address] Phone Care Team Providers Care Forging Press Operator Name Role Phone Ravi Smith MD Primary Care Provider [phone] Aft, Kianna Machado MD PhD Unavailable [phone] Santiago Gilbert MD Unavailable Reason for Referral * Cardiology (Routine) - Closed Specialty Diagnoses / Procedures Referred By Vijaya simpson Referred To Contact Diagnoses Malignant neoplasm of upper-inner quadrant of left breast in female, estrogen receptor negative (HCC) Procedures Transthoracic Echo Complete W Doppler/CF Birdie Ventura MD Phone: tel: fax: [facility] (All Locations) Referral ID Status Reason Start Date Expiration Date Visits Re quested Visits Authorized [id number] Closed 06/04/2018 12/14/2019 1 1 C VIDEO PRODUCER Reason for Visit * Oncology (Routine) - Closed Specialty Diagnoses / Procedures Referred By Vijaya t Referred To Contact Medical Oncology / Oncology Diagnoses 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 Ventura to discuss TC Procedures ONCBCN CLINIC APPOINTMENT REQUEST RETURN [place] Montoya, KAM [address] [place] [address] [address] Phone: tel: fax:[phone] Birdie Ventura MD [address] [place] [address] Phone: tel: fax: Referral ID Status Reason Start Date Expiration Date V isits Requested Visits Authorized [id number] Closed Specialty Services Required 06/04/2018 05/05/2019 99 99 Encounter Details Date Type Department Care Team (Late st Contact Info) Description 06/04/2018 8:45 AM MUSIC VIDEO PRODUCER Office Visit [facility] Oncology [address] [place] [address] Birdie Ventura MD [address] [facility] [address] [place] [address] Malignant neoplasm of upper-inner quadrant [...] file Legal Sex Female 1:06 AM MUSIC VIDEO PRODUCER Gender Identity Not on file Sexual Orientation Not on file documented as of this encounter Last Filed Vital Signs Vital Sign Reading Time Taken Comments Blood Pressure 125/77 06/04/2018 8:51 AM MUSIC VIDEO PRODUCER Pulse 131 06/04/2018 8:51 AM MUSIC VIDEO PRODUCER Temperature 36.6 ??C (97.9 ??F) 06/04/2018 8:51 AM CS T Respiratory Rate 18 06/04/2018 8:51 AM MUSIC VIDEO PRODUCER Oxygen Saturation 98% 06/04/2018 8:51 AM MUSIC VIDEO PRODUCER Inhaled Oxygen Concentration - - Weight 106.6 kg (235 lb) 06/04/2018 8:51 AM MUSIC VIDEO PRODUCER Height 172.7 cm (5' 8 ) 06/04/2018 8:51 AM MUSIC VIDEO PRODUCER Body Mass Index 35.73 06/04/2018 8:51 AM MUSIC VIDEO PRODUCER documented in this encounter Progress Notes * [...] pathology reviewed in [facility] ASSESSMENT: T4bN0 disease, Stage IIC colon adenocarcinoma: Completed adjuvant chemotherapy. She has residual grade 2 sensory/motor neuropathy. 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 D/w Dr. Bunch about re-excision surgery and she feels that [...] to start AC chemotherapy. Birdie Ventura MD Clinical Nutrition Managersawmilling operator Division of Oncology Section of Medical Oncology [facility] Poll Watcher completed by using M*Modal Fluency Direct speaking software, therefore, transcriptionvariances may occur. C VIDEO PRODUCER documented in this encounter Plan of Treatment Not on file documented as of this encounter Results * (ABNORMAL) Comprehensive metabolic panel (06/25/2018 9:13 AM MUSIC VIDEO PRODUCER) Sodium 141 135 - 145 mmol/L [facility] Potassium, pl 4.1 3.3 - 4.9 mmol/L [facility] Chloride 107 97 - 110 mmol/L [facility] CO2 26 22 - 32 mmol/L [facility] Anion gap 8 2 - 15 mmol/L [facility] BUN 15 8 - 25 mg/dL [facility] Creatinine 0.87 0.60 - 1.10 mg/dL [facility] Glucose 229(H) 70 - 199 mg/dL [facility] Comment: Interpretive Data Fasting glucose [...] mg/dL [facility] Protein, pl 6.3(L) 6.5 - 8.5 g/dL [facility] Albumin 3.7 3.5 - 5.0 g/dL [facility] Alk phos 76 40 - 130 Units/L [facility] ALT 29 7 - 45 Units/L [facility] AST 42 10 - 45 Units/L [facility] Blood specimen (specimen) 06/25/2018 9:13 AM MUSIC VIDEO PRODUCER 06/25/2018 9:15 AM MUSIC VIDEO PRODUCER Narrative [facility] - 06/25/2018 9:[address] [facility] us Birdie Ventura MD LAB BLOOD ORDERABLES Final Resul t [facility] One [facility] Department [place] [address] * (ABNORMAL) CBC with auto differential (06/25/2018 9:13 AM MUSIC VIDEO PRODUCER) WBC 7.1 3.8 - 9.9 K/cumm [facility] Hgb 10.1(L) 11.9 - 15.5 g/dL [facility] Hct 31.3(L) 35.6 - 45.5 % [facility] Plt 181 150 - 400 K/cumm [facility] MPV 9.4 9.1 - 12.3 fL [facility] RBC 2.99(L) 3.90 - 5.20 M/cumm [facility] MCV 104.7(H) 81.3 - 96.4 fL [facility] MCH 33.8(H) 27.1 - 33.3 pg [facility] MCHC 32.3 32.3 - 35.7 g/dL [facility] RDW CV 14.2 11.1 - 14.9 % [facility] RDW SD 54.4(H) 35.7 - 48.1 fL [facility] NRBC abs 0.00 0.00 - 0.01 K/cumm [facility] Blood specimen (specimen) 06/25/2018 9:13 AM MUSIC VIDEO PRODUCER 06/25/2018 9:15 AM MUSIC VIDEO PRODUCER Narrative [facility] - 06/25/2018 9:19 AM MUSIC VIDEO PRODUCER us Birdie Ventura MD LAB BLOOD ORDERABLES Final Resul t [facility] One [facility] Department [place] [address] * TRANSTHORACIC ECHO (TTE) COMPLETE W DOPPLER/CF WO CONTRAST (06/24/2018 11:33 AM MUSIC VIDEO PRODUCER) Anatomical Region Laterality Modality Ultrasound 06/24/2018 11:0 0 AM MUSIC VIDEO PRODUCER Narrative 06/24/2018 3:00 PM MUSIC VIDEO PRODUCER Patient name: Aleah Gerber Date of test: 06/24/2018 Type of test: TTE w/Doppler [facility] #: [id number] Date of : 1955 (F) It Infrastructure Specialist: Olivia Narayanan, [facility] RVT Referring Physician: BIRDIE VENTURA MD Contrast Agent: Contrast Administered by: Supervised/Interpreted by: Ronny Reed MD Diagnosis: Pre-Treatment Baseline Location: [facility] Reason for test: Pre-Treatment Baseline, Left Breast [...] 2=Hypo 3=Akinetic 4=Dyskin./Aneurysm 0=Not visualized) Parasternal Long Adah:MAS=1 BAS=1 MP=1 BP=1 Parasternal Short Adah:MAS=1 MS=1 MN=1 MP=1 ML=1 MA=1 Apical 4 Chambers:=1 MS=1 BS=1 BL=1 MN=1 AL=1 Apical 2 Chambers:AI=1 MN=1 BI=1 BA=1 MA=1 AA=1 LV Global Longitudinal Strain: -20.6% ??(Normal <-19%) RV Global Longitudinal Strain: LV Function: Normal LV Ejection Fraction, ??(EF=54-74%) RV Function: Normal Septal Motion: Normal Pericardial Effusion: none seen Atrial Septum: Normal DOPPLER/COLOR FOLOW DOPPLER RESULTS: Diastolic Function: Normal Tricuspid Valve: normal TV Pulmonic Valve: Mild ME AV Regurgitation: No AR seen AV Stenosis: [...] no , no MS, normal TV, Mild ME. Diastolic function: Normal SUMMARY: LA is normal. Normal RV cavity size and function; EF=65%. LV cavity size is normal. Normal LV wall thickness/mass and normal LVF; EF=65%. Normal Inferior vena cava. Normal aorta. No previous study Confirmed on ??06/24/2018 - 15:00:45 by Ronny Reed MD By signing this report, the attending pillowcase maker certifies that he or she has personally supervised and interpreted the echocardiogram and has reviewed and or edited and agrees with the written comments contained within the report. Procedure Note Ronny Reed MD - 06/24/2018 Patient name: Aleah Gerber Date of test: 06/24/2018 Type of test: TTE w/[facility] #: [id number] Date of : 1955 (F) It Infrastructure Specialist: Olivia Narayanan [facility] RVT Referring Physician: BIRDIE VENTURA MD Contrast Agent: Contrast Administered by: Supervised/Interpreted by: Ronny Reed MD Diagnosis: Pre-Treatment Baseline Location: [facility] Reason for test: Pre-Treatment Baseline, Left Breast [...] 2=Hypo 3=Akinetic 4=Dyskin./Aneurysm 0=Not visualized) Parasternal Long Adah:MAS=1 BAS=1 MP=1 BP=1 Parasternal Short Adah:MAS=1 MS=1 MN=1 MP=1 ML=1 MA=1 Apical 4 Chambers:=1 MS=1 BS=1 BL=1 MN=1 AL=1 Apical 2 Chambers:AI=1 MN=1 BI=1 BA=1 MA=1 AA=1 LV Global Longitudinal Strain: -20.6% (Normal <-19%) RV Global Longitudinal Strain: LV Function: Normal LV Ejection Fraction, (EF=54-74%) RV Function: Normal Septal Motion: Normal Pericardial Effusion: none seen Atrial Septum: Normal DOPPLER/COLOR FOLOW DOPPLER RESULTS: Diastolic Function: Normal Tricuspid Valve: normal TV Pulmonic Valve: Mild ME AV Regurgitation: No AR seen AV Stenosis: [...] no , no MS, normal TV, Mild ME. Diastolic function: Normal SUMMARY: LA is normal. Normal RV cavity size and function; EF=65%. LV cavity size is normal. Normal LV wall thickness/mass and normal LVF; EF=65%. Normal Inferior vena cava. Normal aorta. No previous study Confirmed on 06/24/2018 - 15:00:45 by Ronny Reed MD By signing this report, the attending pillowcase maker certifies that he or she has personally [...] 06/25/2018 documented in this encounter Care Teams Forging Press Operator Relationship Specialty Start Date End Date Ravi Smith MD PCP - General 11/04/17 09/27/21 Aft, Kianna Machado MD PhD [address] [place] [address] Surgeon Surgical Oncology 11/22/17 Santiago Gilbert MD [address] [place] [address] Machine Egg Washer Gastroenterology 11/22/17 documented as of this encounter
--- OUTSIDE RECORDS SUMMARY | 2024-04-24 14:59 | XMS_ITS | Encounter Summary ---
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) Procedures [id number]: (Fluorouracil / Leucovorin / Oxaliplatin) 14 Day Cycles Abbi Ventura MD 10 [facility] [address] [place] [address] Phone: tel: fax: [facility] Oncology [address] [place] [address] Phone: tel: Referral ID Status Reason Start Date Expiration Date Visits Re quested Visits Authorized [id number] Closed 01/31/2018 05/05/2019 1 18 Encounter Details Date Type Department Care Team (Latest Contact Info) Description 05/07/2018 9:00 AM MARKET DIRECTOR Clinical Support [facility] Oncology [address] [place] [address] Malignant neoplasm of descending colon (CMS/HCC) Social History Tobacco Use Types Packs/Day Years Used Date Smoking Tobacco: Former Cigarettes 1 2015 Smokeless Tobacco: Never Alcohol Use Standard Drinks/Week Comments Yes 0 (1 standard drink = 0.6 oz pur e alcohol) socially Comments No Sex and Gender Information Value Date Recorded Sex Assigned at Not on file Legal Sex Female 1:06 AM MARKET DIRECTOR Gender Identity Not on file Sexual Orientation Not on file documented as of this encounter Plan of Treatment Not on file documented as of this encounter Procedures Procedure Name Priority Date/Time Associated Diagnosis Comments DIFFERENTIAL AUTO Routine 05/07/2018 9:3 0 AM MARKET DIRECTOR Malignant neoplasm of descending colon (CMS/HCC) CBC WITH AUTO DIFFERENTIAL Routine 05/07/2018 9:30 AM MARKET DIRECTOR Malignant neoplasm of descending colon (CMS/HCC) CEA Routine 05/07/2018 9:30 AM MARKET DIRECTOR Malignant neoplasm of descending colon (CMS/HCC) COMPREHENSIVE METABOLIC PANEL STAT 05/07/2018 9:30 AM MARKET DIRECTOR Malignant neoplasm of descending colon (CMS/HCC) documented in this encounter Results * (ABNORMAL) Differential, auto (05/07/2018 9:30 AM MARKET DIRECTOR) Neutrophil abs 1.6(L) 1.7 - 6.5 K/cumm [facility] Imm gran abs 0.1 0.0 - 0.1 K/cumm [facility] Lymphocyte abs 1.1 0.8 - 3.3 K/cumm [facility] Monocyte abs 0.4 0.2 - 0.8 K/cumm [facility] Eosinophil abs 0.1 0.0 - 0.5 K/cumm [facility] Basophil abs 0.0 0.0 - 0.1 K/cumm [facility] Neutrophil pct 47.2 % [facility] Comment: Interpretive Data Percent cell count reference ranges are not reported, since discordance with absolute values may lead to misinterpretation of CBC data. Current Interpretive Data was last revised on 2017. Imm gran pct 2.7 % [facility] Comment: Interpretive Data Percent cell count reference ranges are not reported, since discordance with absolute values may lead to misinterpretation of CBC data. Current Interpretive Data was last revised on 2017. Lymphocyte pct 34.2 % [facility] Comment: Interpretive Data Percent cell count reference ranges are not reported, since discordance with absolute values may lead to misinterpretation of CBC data. Current Interpretive Data was last revised on 2017. Monocyte pct 12.0 % [facility] Comment: Interpretive Data Percent cell count reference ranges are not reported, since discordance with absolute values may lead to misinterpretation of CBC data. Current Interpretive Data was last revised on 2017. Eosinophil pct 2.4 % [facility] Comment: Interpretive Data Percent cell count reference ranges are not reported, since discordance with absolute values may lead to misinterpretation of CBC data. Current Interpretive Data was last revised on 2017. Basophil pct 1.5 % [facility] Comment: Interpretive Data Percent cell count reference ranges are not reported, since discordance with absolute values may lead to misinterpretation of CBC data. Current Interpretive Data was last revised on 2017. Blood specimen (specimen) 05/07/2018 9:30 AM MARKET DIRECTOR 05/07/2018 9:41 AM MARKET DIRECTOR Narrative [facility] - 05/07/2018 9:46 AM MARKET DIRECTOR us Abbi Ventura MD LAB BLOOD ORDERABLES Final Resul t [facility] One [facility] Department [place] [address] * (ABNORMAL) Comprehensive metabolic panel (05/07/2018 9:30 AM MARKET DIRECTOR) Sodium 142 135 - 145 mmol/L [facility] Potassium, pl 3.3 3.3 - 4.9 mmol/L [facility] Chloride 107 97 - 110 mmol/L [facility] CO2 23 22 - 32 mmol/L [facility] Anion gap 12 2 - 15 mmol/L [facility] BUN 20 8 - 25 mg/dL [facility] Creatinine 0.82 0.60 - 1.10 mg/dL [facility] Glucose 260(H) 70 - 199 mg/dL [facility] [...] 9.3 8.5 - 10.3 mg/dL [facility] Bilirubin, total 0.4 0.1 - 1.2 mg/dL [facility] Protein, pl 6.1(L) 6.5 - 8.5 g/dL [facility] Albumin 3.7 3.5 - 5.0 g/dL [facility] Alk phos 91 40 - 130 Units/L [facility] ALT 38 7 - 45 Units/L [facility] AST 47(H) 10 - 45 Units/L [facility] Blood specimen (specimen) 05/07/2018 9:30 AM MARKET DIRECTOR 05/07/2018 9:41 AM MARKET DIRECTOR Narrative [facility] - 05/07/2018 10:14 AM MARKET DIRECTOR us Abbi Ventura MD LAB BLOOD ORDERABLES Final Resul t [facility] One [facility] Department [place] [address] * CEA (05/07/2018 9:30 AM MARKET DIRECTOR) CEA 5.0 0.0 - 5.0 ng/mL [facility] Comment: Interpretative Data: Reference Range: Non-Smokers: 0.0 - 5.0 ng/mL Smokers: 0.0 ? 6.5 ng/mL This test was developed and its performance characteristics determined by the [facility] in a manner consistent with CLIA requirements. This test has not been cleared or approved by the U.S. Food and Drug Administration. Current interpretive data was last revised 2018. Blood specimen (specimen) 05/07/2018 9:30 AM MARKET DIRECTOR 05/07/2018 10:32 AM MARKET DIRECTOR Narrative [facility] - 05/07/2018 11:11 AM MARKET DIRECTOR us Abbi Ventura MD LAB BLOOD ORDERABLES Final Resul t Performing Organization Address City/[facility]/ZIP Co de Phone Number [facility] Department [place] [address] * (ABNORMAL) CBC with auto differential (05/07/2018 9:30 AM MARKET DIRECTOR) WBC 3.3(L) 3.8 - 9.9 K/cumm [facility] Hgb 9.6(L) 11.9 - 15.5 g/dL [facility] Hct 27.9(L) 35.6 - 45.5 % [facility] Plt 84(L) 150 - 400 K/cumm [facility] MPV 9.7 9.1 - 12.3 fL [facility] RBC 2.87(L) 3.90 - 5.20 M/cumm [facility] MCV 97.2(H) 81.3 - 96.4 fL [facility] MCH 33.4(H) 27.1 - 33.3 pg [facility] MCHC 34.4 32.3 - 35.7 g/dL [facility] RDW CV 19.1(H) 11.1 - 14.9 % [facility] RDW SD 63.7(H) 35.7 - 48.1 fL [facility] NRBC abs 0.08(H) 0.00 - 0.01 K/cumm [facility] Blood specimen (specimen) 05/07/2018 9:30 AM MARKET DIRECTOR 05/07/2018 9:41 AM MARKET DIRECTOR Narrative [facility] - 05/07/2018 9:46 AM MARKET DIRECTOR us Abbi Ventura MD LAB BLOOD ORDERABLES Final Resul t Performing Organization Address City/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
--- OUTSIDE RECORDS SUMMARY | 2024-04-24 14:59 | XMS_ITS | Encounter Summary ---
Author Organization [facility] Address [address] [place] [address] Phone Care Team Providers Care Regional Safety Manager Name Role Phone Ravi Smith MD Primary Care Provider [phone] Aft, Kianna Machado MD PhD Unavailable [phone] Santiago Gilbert MD Unavailable [phone] Reason for Visit * Reason Comments OP Infusion Encounter Details Date Type Department Care Team (Late st Contact Info) Description 07/18/2018 10:30 AM CDT Infusion [facility] Oncology [address] [place] [address] Dehydration (Primary Dx); Malignant neoplasm of descending [...] file Legal Sex Female 1:06 AM MEDICINE ASSISTANT Gender Identity Not on file Sexual [...] Body Mass Index 34.56 07/09/2018 12:46 PM MEDICINE ASSISTANT documented in this encounter Nursing Notes * [...] 07/18 documented in this encounter Care Teams Regional Safety Manager Relationship Specialty Start Date End Date Ravi Smith MD PCP - General 11/04/17 09/27/21 Aft, Kianna Machado MD PhD [address] [place] [address] Surgeon Surgical Oncology 11/22/17 Santiago Gilbert MD [address] [place] [address] It Operations Manager Gastroenterology 11/22/17 documented as of this encounter
--- OUTSIDE RECORDS SUMMARY | 2024-04-24 14:59 | XMS_ITS | Encounter Summary ---
Author Organization [facility] Address [address] [place] [address] Phone Care Team Providers Care Distribution Accounting Clerk Name Role Phone Ravi Smith MD Primary Care Provider [phone] AileentKianna MD PhD Unavailable Santiago Gilbert MD Unavailable [phone] Encounter Details Date Type Department Care Team (Late st Contact Info) Description 06/13/2018 Orders Only [facility] Oncology [address] [place] [address] Fatemeh Zarate RN Social History Tobacco Use [...] filedocumented in this encounter Care Teams Distribution Accounting Clerk Relationship Specialty Start Date End Date Ravi Smith MD PCP - General 11/04/17 09/27/21 Aft, Kianna Machado MD PhD [address] [place] [address] Surgeon Surgical Oncology 11/22/17 Santiago Gilbert MD [address] [place] [address] Truck Striker Gastroenterology 11/22/17 documented as of this encounter
--- OUTSIDE RECORDS SUMMARY | 2024-04-24 14:59 | XMS_ITS | Encounter Summary ---
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) Procedures [id number]: (Fluorouracil / Leucovorin / Oxaliplatin) 14 Day Cycles Abbi Ventura MD [address] [facility] [address] [place] [address] Phone: tel: fax: [facility] [address] [place] [address] Phone: tel: Referral ID Status Reason Start Date Expiration Date Visits Re quested Visits Authorized [id number] Closed 01/31/2018 05/05/2019 1 18 Encounter Details Date Type Department Care Team (Late st Contact Info) Description 05/21/2018 12:00 PM MS ACCESS DATABASE DEVELOPER Infusion [facility] Oncology [address] [place] [address] 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) Social History Tobacco Use Types Packs/Day Years Used Date Smoking Tobacco: Former Cigarettes 2015 Smokeless Tobacco: Never Alcohol Use Standard Drinks/Week Comments Yes 0 (1 standard drink = 0.6 oz pur e alcohol) socially Comments No Sex and Gender Information Value Date Recorded Sex Assigned at Not on file Legal Sex Female 1:06 AM MS ACCESS DATABASE DEVELOPER Gender Identity Not on file Sexual Orientation Not on file documented as of this encounter Nursing Notes * Olivia Perez RN - 05/21/2018 12:00 PM CST Pt tolerated treatment well. ACCESS DATABASE DEVELOPER documented in this encounter Plan of [...] colon (CMS/HCC) (HCC) Given 05/21/2018 12:34 PM MS ACCESS DATABASE DEVELOPER 10 mg fluorouracil (ADRUCIL) 4,200 mg in cadd cassette 84 mL infusion - for home infusion 4,200 mg (rounded from 4,176 mg = 1,800 mg/m2 ? 2.32 m2 Treatment Plan BSA from Recorded weight), intravenous, at 1.8 mL/hr, Administer over 46 Hours, over 46 hours, First dose on Sat05/21/18 at 1600, FOR PUMP PROBLEMS CALL [phone] IrritantIndications:Malig nant neoplasm of descending colon (CMS/HCC) (HCC) Given 05/21/2018 3:25 PM MS ACCESS DATABASE DEVELOPER 4,200 mg 1.8 mL/hr fluorouracil (ADRUCIL) IV syringe 700 mg 14 mL 700 mg (rounded from 696 mg = 300 mg/m2 ? 2.32 m2 Treatment Plan BSA from Recorded weight), intravenous, Administer over 5 Minutes, Once, On Sat05/21/18 at 1530, For 1 dose, IrritantIndications:Malig nant neoplasm of descending colon (CMS/HCC) (HCC) New Bag 05/21/2018 3:20 PM MS ACCESS DATABASE DEVELOPER 700 mg leucovorin 700 mg in dextrose [...] (CMS/HCC) (HCC) New Bag 05/21/2018 1:08 PM MS ACCESS DATABASE DEVELOPER 700 mg 132 mL/hr palonosetron injection 250 mcg 250 mcg (0.25 mg), intravenous, Once, On Sat05/21/18 at 1300, For 1 dose, For IV push, administer over 30 seconds.Indications:Maligna nt neoplasm of descending colon (CMS/HCC) (HCC) Given 05/21/2018 12:34 PM MS ACCESS DATABASE DEVELOPER 250 mcg documented in this encounter Orders [...] 05/21/2018 documented in this encounter Care Teams Bakery Sales Clerk Relationship Specialty Start Date End Date Ravi Smith MD PCP - General 11/04/17 09/27/21 Aft, Kianna Machado MD PhD [address] [place] [address] Surgeon Surgical Oncology 11/22/17 Santiago Gilbert MD [address] [place] [address] Airline Radio Operator Gastroenterology 11/22/17 documented as of this encounter
--- OUTSIDE RECORDS SUMMARY | 2024-04-24 14:59 | XMS_ITS | Encounter Summary ---
Author Organization [facility] Address [address] [place] [address] Phone Care Team Providers Care Play Back Operator Name Role Phone Ravi Smith MD Primary Care Provider [phone] Aft, Kianna Machado MD PhD Unavailable [phone] Santiago Gilbert MD Unavailable [phone] Reason for Visit * Episode Based Medications (Routine) - Closed Specialty Diagnoses / Procedures Referred By Vijaya t Referred To Contact Oncology Diagnoses Malignant neoplasm of upper-inner quadrant of left breast in female, estrogen receptor negative (HCC) Encounter for person encountering health services Procedures MS DOXORUBIC HCL 10 MG VL CHEMO MS CYCLOPHOSPHAMIDE 100 MG INJ MS INJECTION, PEGFILGRASTIM 6MG MS PALONOSETRON HCL MS FOSAPREPITANT INJECTION Dose-Dense AC: DOXOrubicin (ADRIAMYCIN) / Cyclophosphamide) with Abbi Chavez MD [address] [facility] [address] [place] [address] Phone: tel: fax: [facility] Oncology [address] [place] [address] Phone: tel: fax: Referral ID Status Reason Start Date Expiration Date Visits Re quested Visits Authorized [id number] Closed 06/25/2018 09/02/2018 1 36 Encounter Details Date Type Department Care Team (Latest Contact Info) Description 07/09/2018 11:00 AM INFORMATION SYSTEMS AUDITOR Clinical Support [facility] Oncology [address] [place] [address] Encounter for person encountering health services; Malignant [...] Legal Sex Female 1:06 AM INFORMATION SYSTEMS AUDITOR Gender Identity Not on file Sexual Orientation Not on file documented as of this encounter Plan of Treatment Not on file documented as of this encounter Procedures Procedure Name Priority Date/Time Associated Diagnosis Comments DIFFERENTIAL AUTO Routine 07/09/2018 11: 06 AM INFORMATION SYSTEMS AUDITOR Encounter for person encountering health services Malignant neoplasm of upper-inner quadrant of left breast in female, estrogen receptor negative (CMS/HCC) CBC WITH AUTO DIFFERENTIAL Routine 07/09/2018 11:06 AM INFORMATION SYSTEMS AUDITOR Encounter for person encountering health services Malignant neoplasm of upper-inner quadrant of left breast in female, estrogen receptor negative (CMS/HCC) MANUAL DIFFERENTIAL Routine 07/09/2018 1 1:06 AM INFORMATION SYSTEMS AUDITOR Encounter for person encountering health services Malignant neoplasm of upper-inner quadrant of left breast in female, estrogen receptor negative (CMS/HCC) COMPREHENSIVE METABOLIC PANEL STAT 07/09/2018 11:06 AM INFORMATION SYSTEMS AUDITOR Encounter for person encountering health services Malignant neoplasm of upper-inner quadrant of left breast in female, estrogen receptor negative (CMS/HCC) documented in this encounter Results * (ABNORMAL) Manual Differential (07/09/2018 11:06 AM INFORMATION SYSTEMS AUDITOR) Differential Auto [facility] RBC morphology Present(A ) [facility] Anisocytosis Slight(A) [facility] Platelet estimate Decreased (A) [facility] Blood specimen (specimen) 07/09/2018 11:06 AM INFORMATION SYSTEMS AUDITOR 07/09/2018 11:17 AM INFORMATION SYSTEMS AUDITOR Narrative [facility] - 07/09/2018 12:36 PM INFORMATION SYSTEMS AUDITOR Vianey Miller NP LAB BLOOD ORDERABLES Fin al Result [facility] Department [place] [address] * (ABNORMAL) Differential, auto (07/09/2018 11:06 AM INFORMATION SYSTEMS AUDITOR) Neutrophil abs 6.2 1.7 - 6.5 K/cumm [facility] Imm gran abs 0.9(H) 0.0 - 0.1 K/cumm [facility] Lymphocyte abs 0.8 0.8 - 3.3 K/cumm [facility] Monocyte abs 0.6 0.2 - 0.8 K/cumm [facility] Eosinophil abs 0.0 0.0 - 0.5 K/cumm [facility] Basophil abs 0.1 0.0 - 0.1 K/cumm [facility] Neutrophil pct 72.0 % [facility] Comment: Interpretive Data Percent cell count reference ranges are not reported, since discordance with absolute values may lead to misinterpretation of CBC data. Current Interpretive Data was last revised on 2017. Imm gran pct 10.4 % [facility] Comment: Interpretive Data Percent cell count reference ranges are not reported, since discordance with absolute values may lead to misinterpretation of CBC data. Current Interpretive Data was last revised on 2017. Lymphocyte pct 9.1 % [facility] Comment: Interpretive Data Percent cell count reference ranges are not reported, since discordance with absolute values may lead to misinterpretation of CBC data. Current Interpretive Data was last revised on 2017. Monocyte pct 7.5 % [facility] Comment: Interpretive Data Percent cell count reference ranges are not reported, since discordance with absolute values may lead to misinterpretation of CBC data. Current Interpretive Data was last revised on 2017. Eosinophil pct 0.2 % [facility] Comment: Interpretive Data Percent cell count reference ranges are not reported, since discordance with absolute values may lead to misinterpretation of CBC data. Current Interpretive Data was last revised on 2017. Basophil pct 0.8 % [facility] Comment: Interpretive Data Percent cell count reference ranges are not reported, since discordance with absolute values may lead to misinterpretation of CBC data. Current Interpretive Data was last revised on 2017. Blood specimen (specimen) 07/09/2018 11:06 AM INFORMATION SYSTEMS AUDITOR 07/09/2018 11:17 AM INFORMATION SYSTEMS AUDITOR Narrative [facility] - 07/09/2018 12:36 PM INFORMATION SYSTEMS AUDITOR Vianey Miller NP LAB BLOOD ORDERABLES Fin al Result [facility] Department [place] [address] * (ABNORMAL) CBC with auto differential (07/09/2018 11:06 AM INFORMATION SYSTEMS AUDITOR) WBC 8.6 3.8 - 9.9 K/cumm [facility] Hgb 9.8(L) 11.9 - 15.5 g/dL [facility] Hct 29.7(L) 35.6 - 45.5 % [facility] Plt 143(L) 150 - 400 K/cumm [facility] MPV 10.2 9.1 - 12.3 fL [facility] RBC 2.93(L) 3.90 - 5.20 M/cumm [facility] MCV 101.4(H) 81.3 - 96.4 fL [facility] MCH 33.4(H) 27.1 - 33.3 pg [facility] MCHC 33.0 32.3 - 35.7 g/dL [facility] RDW CV 13.4 11.1 - 14.9 % [facility] RDW SD 50.0(H) 35.7 - 48.1 fL [facility] NRBC abs 0.00 0.00 - 0.01 K/cumm [facility] Blood specimen (specimen) 07/09/2018 11:06 AM INFORMATION SYSTEMS AUDITOR 07/09/2018 11:17 AM INFORMATION SYSTEMS AUDITOR Narrative [facility] - 07/09/2018 11:24 AM INFORMATION SYSTEMS AUDITOR us Vianey Miller NP LAB BLOOD ORDERABLES Fin al Result [facility] Department [place] [address] * (ABNORMAL) Comprehensive metabolic panel (07/09/2018 11:06 AM INFORMATION SYSTEMS AUDITOR) Sodium 141 135 - 145 mmol/L [facility] Potassium, pl 3.1(L) 3.3 - 4.9 mmol/L [facility] Chloride 107 97 - 110 mmol/L [facility] CO2 23 22 - 32 mmol/L [facility] Anion gap 11 2 - 15 mmol/L [facility] BUN 12 8 - 25 mg/dL [facility] Creatinine 0.86 0.60 - 1.10 mg/dL [facility] Glucose 254(H) 70 - 199 mg/dL [facility] mg/dL [facility] Protein, pl 6.8 6.5 - 8.5 g/dL [facility] Albumin 3.7 3.5 - 5.0 g/dL [facility] Alk phos 78 40 - 130 Units/L [facility] ALT 19 7 - 45 Units/L [facility] AST 26 10 - 45 Units/L [facility] Blood specimen (specimen) 07/09/2018 11:06 AM INFORMATION SYSTEMS AUDITOR 07/09/2018 11:17 AM INFORMATION SYSTEMS AUDITOR Narrative [facility] - 07/09/2018 11:42 AM INFORMATION SYSTEMS AUDITOR Vianey Miller [employer] LPN LAB BLOOD ORDERABLES Fin al Result [facility] Department [place] [address] documented in this encounter Visit Diagnoses Diagnosis Encounter for person encountering health services Malignant neoplasm of upper-inner quadrant of left breast in female, estrogen receptor negative (HCC) documented in this encounter Orders Appointment Requests Count Last Ordered Date Fi rst Ordered Date ONCBCN LAB APPOINTMENT 1 07/09/2018 documented in this encounter Care Teams Play Back Operator Relationship Specialty Start Date End Date Ravi Smith MD PCP - General 11/04/17 09/27/21 Aft, Kianna Machado MD PhD [address] [place] [address] Surgeon Surgical Oncology 11/22/17 Santiago Gilbert MD [address] [place] [address] Wire Welder Gastroenterology 11/22/17 documented as of this encounter
--- OUTSIDE RECORDS SUMMARY | 2024-04-24 14:59 | XMS_ITS | Encounter Summary ---
Author Organization [facility] Address [address] [place] [address] Phone Care Team Providers Care Pharmacy Clerk Name Role Phone Ravi Smith MD Primary Care Provider [phone] Aft, Kianna Machado MD PhD Unavailable [phone] Santiago Gilbert MD Unavailable [phone] Reason for Visit * Reason Comments Chemotherapy * Episode Based Medications (Routine) - Closed Specialty Diagnoses / Procedures Referred By Vijaya simpson Referred To Contact Oncology Diagnoses Malignant neoplasm of upper-inner quadrant of left breast in female, estrogen receptor negative (HCC) Encounter for person encountering health services Procedures AK DOXORUBIC HCL 10 MG VL CHEMO AK CYCLOPHOSPHAMIDE 100 MG INJ AK INJECTION, PEGFILGRASTIM 6MG AK PALONOSETRON HCL AK FOSAPREPITANT INJECTION Dose-Dense AC: DOXOrubicin (ADRIAMYCIN) / Cyclophosphamide) with Abbi Chavez MD [address] [facility] [address] [place] [address] Phone: tel: fax: [facility] [address] [place] [address] Phone: tel: fax: Referral ID Status Reason Start Date Expiration Date Visits Re quested Visits Authorized [id number] Closed 06/25/2018 09/02/2018 1 36 Encounter Details Date Type Department Care Team (Late st Contact Info) Description 06/25/2018 10:00 AM ASH HANDLER Infusion [facility] On[facility] [address] [place] [address] Malignant neoplasm of upper-inner quadrant of left [...] on file Legal Sex Female 1:06 AM ASH HANDLER Gender Identity Not on file Sexual Orientation [...] neuropathy to hands/feet. Tolerated tx very well. HANDLER documented in this encounter Plan of Treatment [...] negative (HCC) New Bag 06/25/2018 12:18 PM ASH HANDLER 1,356 mg 635.6 mL/hr dexamethasone (DECADRON) 10 mg in sodium chloride 0.9% 50 mL IVPB 10 mg, intravenous, at 153 mL/hr, Administer over 20 Minutes, Once, On Sat06/25/18 at 1145, For 1 doseIndications:Encount er for person encountering health services,Malignant neoplasm of upper-inner quadrant of left breast in female, estrogen receptor negative (HCC) New Bag 06/25/2018 11:09 AM ASH HANDLER 10 mg 153 mL/hr DOXOrubicin (ADRIAMYCIN) 2 [...] negative (HCC) New Bag 06/25/2018 12:07 PM ASH HANDLER 135.6 mg 406.8 mL/hr fosaprepitant (EMEND) 150 mg in sodium chloride 0.9% 150 mL IVPB 150 mg, intravenous, at 450 mL/hr, Administer over 20 Minutes, Once, On Sat06/25/18 at 1145, For 1 doseIndications:Encount er for person encountering health services,Malignant neoplasm of upper-inner quadrant of left breast in female, estrogen receptor negative (HCC) New Bag 06/25/2018 11:31 AM ASH HANDLER 150 mg 450 mL/hr palonosetron injection 250 mcg 250 mcg (0.25 mg), intravenous, Once, On Sat06/25/18 at 1145, For 1 dose, For IV push, administer over 30 seconds.Indications:Enc ounter for person encountering health services,Malignant neoplasm of upper-inner quadrant of left breast in female, estrogen receptor negative (HCC) Given 06/25/2018 11:08 AM ASH HANDLER 250 mcg pegfilgrastim (NEULASTA ON-BODY) injection 6 mg 6 mg, subcutaneous, Once, On Sat06/25/18 at 1145, For 1 dose, Attach to the patient as directed following the completion of chemotherapy - to be given OUTPATIENT only Refrigerate. ON-PRO deviceIndications:Encou nter for person encountering health services,Malignant neoplasm of upper-inner quadrant of left breast in female, estrogen receptor negative (HCC) Given 06/25/2018 12:26 PM ASH HANDLER 6 mg Right Lower Abdomen documented in this encounter Orders Nursing Count Last Ordered Date First Orde red Date ONCBCN PROVIDER COMMUNICATION 1 1 9 ONCBCN TREATMENT PARAMETERS 5 1 06/25/2018 Appointment Requests Count Last Ordered Date Fi rst Ordered Date ONCBCN RETURN CHEMO 2HRS 06/25/2018 documented in this encounter Care Teams Pharmacy Clerk Relationship Specialty Start Date End Date Ravi Smith MD PCP - General 11/04/17 09/27/21 Aft, Kianna Machado MD PhD [address] [place] [address] Surgeon Surgical Oncology 11/22/17 Santiago Gilbert MD [address] [place] [address] Budget Accountant Gastroenterology 11/22/17 documented as of this encounter
--- OUTSIDE RECORDS SUMMARY | 2024-04-24 14:59 | XMS_ITS | Encounter Summary ---
Author Organization [facility] Address [address] [place] [address] Phone Care Team Providers Care Children'S Lunchroom Supervisor Name Role Phone Ravi Smith MD Primary Care Provider [phone] Aft, Kianna Machado MD PhD Unavailable [phone] Santiago Gilbert MD Unavailable [phone] Encounter Details Date Type Department Care Team (Latest Contact Info) Description 06/04/2018 8:15 AM CANDLEMAKER Clinical Support [facility] Oncology [address] [place] [address] Malignant neoplasm of descending colon (CMS/HCC); Malignant [...] on file Legal Sex Female 1:06 AM CANDLEMAKER Gender Identity Not on file Sexual Orientation Not on file documented as of this encounter Plan of Treatment Not on file documented as of this encounter Procedures Procedure Name Priority Date/Time Associated Diagnosis Comments DIFFERENTIAL AUTO Routine 06/04/2018 8:3 0 AM CANDLEMAKER Malignant neoplasm of upper-inner quadrant of left breast in female, estrogen receptor negative (CMS/HCC) CBC WITH AUTO DIFFERENTIAL Routine 06/04/2018 8:30 AM CANDLEMAKER Malignant neoplasm of upper-inner quadrant of left breast in female, estrogen receptor negative (CMS/HCC) COMPREHENSIVE METABOLIC PANEL Routine 06/04/2018 8:30 AM CANDLEMAKER Malignant neoplasm of upper-inner quadrant of left breast in female, estrogen receptor negative (CMS/HCC) documented in this encounter Results * Differential, auto (06/04/2018 8:30 AM CANDLEMAKER) Neutrophil abs 3.8 1.7 - 6.5 K/cumm [facility] Imm gran abs 0.0 0.0 - 0.1 K/cumm [facility] Lymphocyte abs 1.8 0.8 - 3.3 K/cumm [facility] Monocyte abs 0.6 0.2 - 0.8 K/cumm [facility] Eosinophil abs 0.1 0.0 - 0.5 K/cumm [facility] Basophil abs 0.0 0.0 - 0.1 K/cumm [facility] Neutrophil pct 59.6 % [facility] Comment: Interpretive Data Percent cell count reference ranges are not reported, since discordance with absolute values may lead to misinterpretation of CBC data. Current Interpretive Data was last revised on 2017. Imm gran pct 0.5 % [facility] Comment: Interpretive Data Percent cell count reference ranges are not reported, since discordance with absolute values may lead to misinterpretation of CBC data. Current Interpretive Data was last revised on 2017. Lymphocyte pct 28.4 % [facility] Comment: Interpretive Data Percent cell count reference ranges are not reported, since discordance with absolute values may lead to misinterpretation of CBC data. Current Interpretive Data was last revised on 2017. Monocyte pct 8.8 % [facility] Comment: Interpretive Data Percent cell count reference ranges are not reported, since discordance with absolute values may lead to misinterpretation of CBC data. Current Interpretive Data was last revised on 2017. Eosinophil pct 2.1 % [facility] Comment: Interpretive Data Percent cell count reference ranges are not reported, since discordance with absolute values may lead to misinterpretation of CBC data. Current Interpretive Data was last revised on 2017. Basophil pct 0.6 % [facility] Comment: Interpretive Data Percent cell count reference ranges are not reported, since discordance with absolute values may lead to misinterpretation of CBC data. Current Interpretive Data was last revised on 2017. Blood specimen (specimen) 06/04/2018 8:30 AM CANDLEMAKER 06/04/2018 8:35 AM CANDLEMAKER Narrative [facility] - 06/04/2018 8:38 AM CANDLEMAKER us Abbi Ventura MD LAB BLOOD ORDERABLES Final Resul t [facility] [place] [address] * (ABNORMAL) Comprehensive metabolic panel (06/04/2018 8:30 AM CANDLEMAKER) Sodium 137 135 - 145 mmol/L [facility] Potassium, pl 3.4 3.3 - 4.9 mmol/L [facility] Chloride 101 97 - 110 mmol/L [facility] CO2 22 22 - 32 mmol/L [facility] Anion gap 14 2 - 15 mmol/L [facility] BUN 18 8 - 25 mg/dL [facility] Creatinine 0.88 0.60 - 1.10 mg/dL [facility] Glucose 385(H) 70 - 199 mg/dL [facility] mg/dL [facility] Bilirubin, total 0.5 0.1 - 1.2 mg/dL [facility] Protein, pl 6.8 6.5 - 8.5 g/dL [facility] Albumin 4.0 3.5 - 5.0 g/dL [facility] Alk phos 98 40 - 130 Units/L [facility] ALT 47(H) 7 - 45 Units/L [facility] AST 46(H) 10 - 45 Units/L [facility] Blood specimen (specimen) 06/04/2018 8:30 AM CANDLEMAKER 06/04/2018 8:35 AM CANDLEMAKER Narrative [facility] - 06/04/2018 8:59 AM CANDLEMAKER us Abbi Ventura MD LAB BLOOD ORDERABLES Final Resul t [facility] [place] [address] * (ABNORMAL) CBC with auto differential (06/04/2018 8:30 AM CANDLEMAKER) WBC 6.3 3.8 - 9.9 K/cumm [facility] Hgb 10.4(L) 11.9 - 15.5 g/dL [facility] Hct 30.4(L) 35.6 - 45.5 % [facility] Plt 118(L) 150 - 400 K/cumm [facility] MPV 9.4 9.1 - 12.3 fL [facility] RBC 2.99(L) 3.90 - 5.20 M/cumm [facility] MCV 101.7(H) 81.3 - 96.4 fL [facility] MCH 34.8(H) 27.1 - 33.3 pg [facility] MCHC 34.2 32.3 - 35.7 g/dL [facility] RDW CV 16.7(H) 11.1 - 14.9 % [facility] RDW SD 61.8(H) 35.7 - 48.1 fL [facility] NRBC abs 0.03(H) 0.00 - 0.01 K/cumm [facility] Blood specimen (specimen) 06/04/2018 8:30 AM CANDLEMAKER 06/04/2018 8:35 AM CANDLEMAKER Narrative [facility] - 06/04/2018 8:38 AM CANDLEMAKER us Abbi Ventura MD LAB BLOOD ORDERABLES Final Resul t [facility] [place] [address] documented in this encounter Visit Diagnoses Diagnosis 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) Malignant neoplasm 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, estrogen receptor negative (HCC) documented in this encounter Orders Appointment Requests Count Last Ordered Date Fi rst Ordered Date ONCBCN LAB APPOINTMENT 1 06/04/2018 documented in this encounter Care Teams Children'S Lunchroom Supervisor Relationship Specialty Start Date End Date Ravi Smith MD PCP - General 11/04/17 09/27/21 Aft, Kianna Machado MD PhD [address] [place] [address] Surgeon Surgical Oncology 11/22/17 Santiago Gilbert MD [address] [place] [address] Valve Repairer Reclamation Gastroenterology 11/22/17 documented as of this encounter
--- OUTSIDE RECORDS SUMMARY | 2024-04-24 14:59 | XMS_ITS | Encounter Summary ---
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 Ventura to discuss TC Procedures ONCBCN CLINIC APPOINTMENT REQUEST RETURN [place] Montoya, CLINICAL ACCOUNT EXECUTIVE [facility] [address] [address] Phone: tel: fax: Abbi Ventura MD [address] [place] [address] Phone: tel: fax: Referral ID Status Reason Start Date Expiration Date V isits Requested Visits Authorized [id number] Closed Specialty Services Required 06/04/2018 05/05/2019 [id number] [phone] Encounter Details Date Type Department Care Team (Late st Contact Info) Description 06/25/2018 9:00 AM CANDY SPREADER HELPER Office Visit [facility] Oncology [address] [place] [address] Abbi Ventura MD [address] [place] [address] Malignant neoplasm of upper-inner quadrant of left [...] file Legal Sex Female 1:06 AM CANDY SPREADER HELPER Gender Identity Not on file Sexual Orientation Not on file documented as of this encounter Last Filed Vital Signs Vital Sign Reading Time Taken Comments Blood Pressure 146/76 06/25/2018 9:34 AM CANDY SPREADER HELPER Pulse 124 06/25/2018 9:34 AM CANDY SPREADER HELPER Temperature 36.9 ??C (98.4 ??F) 06/25/2018 9:34 AM CS T Respiratory Rate 18 06/25/2018 9:34 AM CANDY SPREADER HELPER Oxygen Saturation 93% 06/25/2018 9:34 AM CANDY SPREADER HELPER Inhaled Oxygen Concentration - - Weight 109.8 kg (242 lb) 06/25/2018 9:34 AM CANDY SPREADER HELPER Height 172.7 cm (5' 8 ) 06/25/2018 9:34 AM CANDY SPREADER HELPER Body Mass Index 36.8 06/25/2018 9:34 AM CANDY SPREADER HELPER documented in this encounter Progress Notes * Vianey Miller, CLINICAL ACCOUNT EXECUTIVE - 06/25/2018 9:00 AM CST Patient Identifying Data: Aleah Gerber is a 62 y.o. female seen in followup today DIAGNOSIS: 1. 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 [employer] My risk showed no mutation in [facility] [...] radiology and pathology reviewed in [facility] ASSESSMENT: T4bN0 disease, Stage IIC colon adenocarcinoma: Completed adjuvant chemotherapy. She has residual grade 2 sensory/motor neuropathy. 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 Presents today to initiatecycle 1 AC. Again, discussed risks and potential side effects of treatment. [facility]2 [...] MSN, OCN, ANP Nurse Practitioner, Medical Oncology Cloth Mercerizing Supervisor completed by using M*Modal Fluency Direct speaking software, therefore, transcriptionvariances may occur. Y SPREADER HELPER documented in this encounter Plan of Treatment Not on file documented as of this encounter Results * (ABNORMAL) Comprehensive metabolic panel (07/09/2018 11:06 AM CANDY SPREADER HELPER) Sodium 141 135 - 145 mmol/L [facility] [...] [facility]J Glucose 254(H) 70 - 199 mg/dL [facility] 2017. Calcium 9.2 8.5 - 10.3 mg/dL [facility] Bilirubin, total 0.3 0.1 - 1.2 mg/dL [facility] Protein, pl 6.8 6.5 - 8.5 g/dL [facility] Albumin 3.7 3.5 - 5.0 g/dL [facility] Alk phos 78 40 - 130 Units/L [facility] ALT 19 7 - 45 Units/L [facility] AST 26 10 - 45 Units/L [facility] Blood specimen (specimen) 07/09/2018 11:06 AM CANDY SPREADER HELPER 07/09/2018 11:17 AM CANDY SPREADER HELPER Narrative [facility] - 07/09/2018 11:42 AM CANDY SPREADER HELPER Vianey Miller NP LAB BLOOD ORDERABLES Fin al Result [facility] Department [place] [address] * (ABNORMAL) CBC with auto differential (07/09/2018 11:06 AM CANDY SPREADER HELPER) WBC 8.6 3.8 - 9.9 K/cumm [facility] Hgb 9.8(L) 11.9 - 15.5 g/dL [facility] Hct 29.7(L) 35.6 - 45.5 % [facility] Plt 143(L) 150 - 400 K/cumm [facility] MPV 10.2 9.1 - 12.3 fL [facility] RBC 2.93(L) 3.90 - 5.20 M/cumm [facility] MCV 101.4(H) 81.3 - 96.4 fL [facility] MCH 33.4(H) 27.1 - 33.3 pg [facility] MCHC 33.0 32.3 - 35.7 g/dL [facility] RDW CV 13.4 11.1 - 14.9 % [facility] RDW SD 50.0(H) 35.7 - 48.1 fL [facility] NRBC abs 0.00 0.00 - 0.01 K/cumm [facility] Blood specimen (specimen) 07/09/2018 11:06 AM CANDY SPREADER HELPER 07/09/2018 11:17 AM CANDY SPREADER HELPER Narrative [facility] - 07/09/2018 11:24 AM CANDY SPREADER HELPER Vianey Miller CLINICAL ACCOUNT EXECUTIVE LAB BLOOD ORDERABLES Fin al Result [facility] One [facility] Department [place] [address] documented in this encounter Visit Diagnoses Diagnosis [...] 07/09/2018 documented in this encounter Care Teams Mechanical Supervisor Relationship Specialty Start Date End Date Ravi Smith MD PCP - General 11/04/17 09/27/21 Aft, Kianna Machado MD PhD [address] [place] [address] Surgeon Surgical Oncology 11/22/17 Santaigo Gilbert MD [address] [place] [address] Analytics Senior Manager Gastroenterology 11/22/17 documented as of this encounter
--- OUTSIDE RECORDS SUMMARY | 2024-04-24 14:59 | XMS_ITS | Encounter Summary ---
Author Organization [facility] Address [address] [place] [address] Phone Care Team Providers Care Rug Dyer Helper Name Role Phone Ravi Smith MD Primary Care Provider [phone] Aft, Kianna Machado MD PhD Unavailable [phone] Santiago Gilbert MD Unavailable [phone] Encounter Details Date Type Department Care Team (Late st Contact Info) Description 05/28/2018 Documentation [facility] Oncology [address] [place] [address] Fatemeh Zarate, RN Social History Tobacco Use Types Packs/Day Years Used Date Smoking Tobacco: Former Cigarettes 2015 Smokeless Tobacco: Never Alcohol Use Standard Drinks/Week Comments Yes 0 (1 standard drink = 0.6 oz pur e alcohol) socially Comments No Sex and Gender Information Value Date Recorded Sex Assigned at Not on file Legal Sex Female 1:06 AM PERSONAL VEHICLE ADVISOR Gender Identity Not on file Sexual [...] approx 06/16/18 to pt local pharmacy. DB ONAL VEHICLE ADVISOR documented in this encounter Plan of Treatment Not on file documented as of this encounter Visit Diagnoses Not on filedocumented in this encounter Care Teams Rug Dyer Helper Relationship Specialty Start Date End Date Ravi Smith MD PCP - General 11/04/17 09/27/21 Aft, Kianna Machado MD PhD [address] [place] [address] Surgeon Surgical Oncology 11/22/17 Santiago Gilbert MD [address] [place] [address] Psychology Tech Gastroenterology 11/22/17 documented as of this encounter
--- OUTSIDE RECORDS SUMMARY | 2024-04-24 14:59 | XMS_ITS | Encounter Summary ---
Author Organization [facility] Address [address] [place] [address] Phone Care Team Providers Care Investment Banking Associate Name Role Phone Ravi Smith MD Primary Care Provider [phone] Kianna Bunch MD PhD Unavailable [phone] Santiago Gilbert MD Unavailable [phone] Encounter Details Date Type Department Care Team (Late st Contact Info) Description 06/12/2018 Orders Only [facility] Oncology [address] [place] [address] Fatemeh Zarate, LYDIA Social History Tobacco Use Types Packs/Day Years Used Date Smoking Tobacco: Former Cigarettes 2015 Smokeless Tobacco: Never Alcohol Use Standard Drinks/Week Comments Yes 0 (1 standard drink = 0.6 oz pur e alcohol) socially Comments No Sex and Gender Information Value Date Recorded Sex Assigned at Not on file Legal Sex Female 1:06 AM FAMILY CONSUMER SCIENCE TEACHER Gender Identity Not on file Sexual Orientation Not on file documented as of this encounter Plan of Treatment Not on file documented as of this encounter Visit Diagnoses Not on filedocumented in this encounter Care Teams Investment Banking Associate Relationship Specialty Start Date End Date Ravi Smith MD PCP - General 11/04/17 09/27/21 Kianna Bunch MD PhD [address] [place] [address] Surgeon Surgical Oncology 11/22/17 Santiago Gilbert MD [address] [place] [address] Home Attendant Gastroenterology 11/22/17 documented as of this encounter
--- OUTSIDE RECORDS SUMMARY | 2024-04-24 14:59 | XMS_ITS | Encounter Summary ---
Author Organization [facility] Address [address] [place] [address] Phone Care Team Providers Care Cylinder Press Feeder Name Role Phone Ravi Smith MD Primary Care Provider [phone] Aft, Kianna Machado MD PhD Unavailable [phone] Santiago Gilbert MD Unavailable [phone] Encounter Details Date Type Department Care [...] on file Legal Sex Female 1:06 AM CORONER TECHNICIAN Gender Identity Not on file Sexual [...] on filedocumented in this encounter Care Teams Cylinder Press Feeder Relationship Specialty Start Date End Date Ravi Smith MD PCP - General 11/04/17 09/27/21 Aft, Kianna Machado MD PhD [address] [place] [address] Surgeon Surgical Oncology 11/22/17 Santiago Gilbert MD [address] [place] [address] Induction Machine Setter Gastroenterology 11/22/17 documented as of this encounter
--- OUTSIDE RECORDS SUMMARY | 2024-04-24 14:59 | XMS_ITS | Encounter Summary ---
Author Organization [facility] Address [address] [place] [address] Phone Care Team Providers Care Ceiling Cleaner Name Role Phone Ravi Smith MD Primary Care Provider [phone] Kianna Bunch MD PhD Unavailable [phone] Santiago Gilbert MD Unavailable [phone] Encounter Details Date Type Department Care Team (Late st Contact Info) Description 06/04/2018 Telephone [facility] [address] [place] [address] Fatemeh Zarate RN Social History Tobacco Use Types Packs/Day Years Used Date Smoking Tobacco: Former Cigarettes 2015 Smokeless Tobacco: Never Alcohol Use Standard Drinks/Week Comments Yes 0 (1 standard drink = 0.6 oz pur e alcohol) socially Comments No Sex and Gender Information Value Date Recorded Sex Assigned at Not on file Legal Sex Female 1:06 AM HOOP RIVETING MACHINE OPERATOR HELPER Gender Identity Not on file Sexual Orientation Not on file documented as of this encounter Miscellaneous Notes * Telephone Encounter - Fatemeh Zarate RN - 06/04/2018 12:22 PM CST ----- Message from Fatemeh Zarate RN sent at 05/21/2018 12:41 PM HOOP RIVETING MACHINE OPERATOR HELPER ----- Regarding: Follow up Pt to follow [...] day before chemo. DB 06/02/18 Pt sent [email or web address] message. She is planning to go on vacation and does not want to start chemo06/04/18. Will discuss dex with pt at appt. DB 06/04/18 Plan changed. Pt will be starting dose dense AC, not TC. Dex not needed. DB RIVETING MACHINE OPERATOR HELPER RIVETING MACHINE OPERATOR HELPER documented in this encounter Plan of Treatment Not on file documented as of this encounter Visit Diagnoses Not on filedocumented in this encounter Care Teams Ceiling Cleaner Relationship Specialty Start Date End Date Ravi Smith MD PCP - General 11/04/17 09/27/21 Kianna Bunch MD PhD [address] [place] [address] Surgeon Surgical Oncology 11/22/17 Santiago Gilbert MD [address] [place] [address] Equipment Planner Gastroenterology 11/22/17 documented as of this encounter
--- OUTSIDE RECORDS SUMMARY | 2024-04-24 14:59 | XMS_ITS | Encounter Summary ---
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) Procedures CT chest abdomen pelvis with contrast Jamaica Montoya NP Phone: tel: fax: [facility] Referral ID Status Reason Start Date Expiration Date Visits Re quested Visits Authorized [id number] Closed 05/21/2018 05/28/2018 1 1 L ARTISTS' Reason for Visit * Episode Based Medications (Routine) - Closed Specialty Diagnoses / Procedures Referred By Contronny t Referred To Contact Diagnoses 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 [place] [address] Phone: tel: Referral ID Status Reason Start Date Expiration Date Visits Re quested Visits Authorized [id number] Closed 01/31/2018 05/05/2019 1 18 Encounter Details Date Type Department Care Team (Late st Contact Info) Description 05/21/2018 11:00 AM MODEL ARTISTS' Office Visit [facility] [address] [place] [address] Abbi Ventura MD [address] [facility] [address] [place] [address] Malignant neoplasm of descending colon (CMS/HCC) Social History Tobacco Use Types Packs/Day Years Used Date Smoking Tobacco: Former Cigarettes 2015 Smokeless Tobacco: Never Alcohol Use Standard Drinks/Week Comments Yes 0 (1 standard drink = 0.6 oz pur e alcohol) socially Comments No Sex and Gender Information Value Date Recorded Sex Assigned at Not on file Legal Sex Female 1:06 AM MODEL ARTISTS' Gender Identity Not on file Sexual Orientation Not on file documented as of this encounter Last Filed Vital Signs Vital Sign Reading Time Taken Comments Blood Pressure 140/67 05/21/2018 11:10 AM MODEL ARTISTS' Pulse 98 05/21/2018 11:10 AM MODEL ARTISTS' Temperature 36.6 ??C (97.9 ??F) 05/21/2018 11:[address] Respiratory Rate 16 05/21/2018 11:10 AM MODEL ARTISTS' Oxygen Saturation 97% 05/21/2018 11:10 AM MODEL ARTISTS' Inhaled Oxygen Concentration - - Weight 107 kg (236 lb) 05/21/2018 11:10 AM MODEL ARTISTS' Height 172.7 cm (5' 8 ) 05/21/2018 11:10 AM MODEL ARTISTS' Body Mass Index 35.88 05/21/2018 11:10 AM MODEL ARTISTS' documented in this encounter Progress Notes * Jamaica Montoya, DRESS CAP MAKER - 05/21/2018 11:00 AM CST Patient Identifying Data: Aleah Gerber is a 62 y.o. female seen in followup today DIAGNOSIS: 1. 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 [employer] My risk showed no mutation in MLH [...] Recent labs, radiology and pathology reviewed in [facility] ASSESSMENT: T4bN0 disease, Stage IIC colon adenocarcinoma: Tolerating 5FU/LV at 25% well except for grade 1 fatigue, nausea, and muscle weakness to lower legs. On 04/23/2018 Oxaliplatin discontinued after patient experienced tongue swelling and throat closing: skin testing negative to Oxaliplatin on 03/03/18. Heart palpitations and SOB without chest pain/tightness: Patient encouraged to schedule with prosthodontist/educator for further evaluation. 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 [facility] [...] Practitioner for Dr. Abbi Ventura Medical Oncology [facility] L ARTISTS' documented in this encounter Plan of Treatment Not on file documented as of this encounter Results * CT chest abdomen pelvis with contrast (05/28/2018 11:34 AM MODEL ARTISTS') Anatomical Region Laterality Modality Body N/A Computed Tomogra phy 05/28/2018 12:0 5 PM MODEL ARTISTS' Impressions 05/28/2018 12:15 PM MODEL ARTISTS' 1. Extensive acute pulmonary embolism as described above. ??Right lower extremity deep vein thrombosis. 2. ??No evidence of metastatic disease involving chest, abdomen or pelvis. The Critical results were discussed with Dr. Ventura by Dr. Lobo on 05/28/2018 at 12:02 PM. Dictated by: Aretha Lobo M.D. Electronically signed by: Juaquin Reyes M.D., MPH Narrative 05/28/2018 12:15 PM MODEL ARTISTS' EXAMINATION: ??Computed tomography of the chest, abdomen [...] by: Juaquin Reyes M.D., MPH Jamaica Montoya DRESS CAP MAKER IMG CT PROCEDURES Final Re sult documented [...] 06/04/2018 documented in this encounter Care Teams Associate Financial Analyst Relationship Specialty Start Date End Date Ravi Smith MD PCP - General 11/04/17 09/27/21 Aft, Kianna Machado MD PhD [address] [place] [address] Surgeon Surgical Oncology 11/22/17 Santiago Gilbert MD [address] [place] [address] Leasing Coordinator Gastroenterology 11/22/17 documented as of this encounter
--- OUTSIDE RECORDS SUMMARY | 2024-04-24 14:59 | XMS_ITS | Encounter Summary ---
Author Organization [facility] Address [address] [place] [address] Phone Care Team Providers Care International Organizer Name Role Phone Ravi Smith MD Primary Care Provider [phone] Aft, Kianna Machado MD PhD Unavailable [phone] Santiago Gilbert MD Unavailable [phone] Encounter Details Date Type Department Care Team (Late st Contact Info) Description 07/17/2018 Orders Only [facility] Oncology [address] [place] [address] Abbi Ventura MD 10 [facility] [address] [place] [address] Social History Tobacco Use Types Packs/Day Years Used Date Smoking Tobacco: Former Cigarettes 2015 Smokeless Tobacco: Never Alcohol Use Standard Drinks/Week Comments Yes 0 (1 standard drink = 0.6 oz pur e alcohol) socially Comments No Sex and Gender Information Value Date Recorded Sex Assigned at Not on file Legal Sex Female 1:06 AM LEGAL DOCUMENT SPECIALIST Gender Identity Not on file Sexual Orientation Not on file documented as of this encounter Plan of Treatment Not on file documented as of this encounter Visit Diagnoses Not on filedocumented in this encounter Care Teams International Organizer Relationship Specialty Start Date End Date Ravi Smith MD PCP - General 11/04/17 09/27/21 Aft, Kianna Machado MD PhD [address] [place] [address] Surgeon Surgical Oncology 11/22/17 Santiago Gilbert MD [address] [place] [address] Operations Controller Gastroenterology 11/22/17 documented as of this encounter
--- OUTSIDE RECORDS SUMMARY | 2024-04-24 14:59 | XMS_ITS | Encounter Summary ---
Author Organization [facility] Address [address] [place] [address] Phone Care Team Providers Care Steel Die Engraver Name Role Phone Ravi Smith MD Primary Care Provider [phone] Aft, Kianna Machado MD PhD Unavailable [phone] Santiago Gilbert MD Unavailable [phone] Encounter Details Date Type Department Care Team (Late st Contact Info) Description 05/29/2018 Orders Only [facility] Oncology [address] [place] [address] Abbi Ventura MD 10 [facility] [address] [place] [address] Social History Tobacco Use Types Packs/Day Years Used Date Smoking Tobacco: Former Cigarettes 2015 Smokeless Tobacco: Never Alcohol Use Standard Drinks/Week Comments Yes 0 (1 standard drink = 0.6 oz pur e alcohol) socially Comments No Sex and Gender Information Value Date Recorded Sex Assigned at Not on file Legal Sex Female 1:06 AM IT APPLICATIONS DEVELOPER Gender Identity Not on file [...] MD PhD [address] [place] [address] Surgeon Surgical Oncology 11/22/17 Santiago Gilbert MD [address] [place] [address] Buffing Wheel Presser Gastroenterology 11/22/17 documented as of this encounter
--- OUTSIDE RECORDS SUMMARY | 2024-04-24 14:59 | XMS_ITS | Encounter Summary ---
Author Organization [facility] Address [address] [place] [address] Phone Care Team Providers Care Movie Projectionist Name Role Phone Ravi Smith MD Primary Care Provider [phone] Aft, Kianna Machado MD PhD Unavailable [phone] Santiago Gilbert MD Unavailable [phone] Reason for Referral * Consultation (Routine) [...] Expiration Date V isits Requested Visits Authorized [id number] Closed Specialty Services Required 05/21/2018 11/30/2019 1 1 Comments Please sawyer pt for Lower leg weakness for several weeks. Worse week after chemotherapy. PS BUSINESS ANALYST Encounter Details Date Type Department Care Team (Late st Contact Info) Description 05/21/2018 Orders Only [facility] Oncology [address] [place] [address] Abbi Ventura MD [address] [facility] [address] [place] [address] Malignant neoplasm of descending colon [...] on file Legal Sex Female 1:06 AM SAP BUSINESS ANALYST Gender Identity Not on file Sexual [...] (HCC) documented in this encounter Care Teams Movie Projectionist Relationship Specialty Start Date End Date Ravi Smith MD PCP - General 11/04/17 09/27/21 Aft, Kianna Machado MD PhD [address] [place] [address] Surgeon Surgical Oncology 11/22/17 Santiago Gilbert MD [address] [place] [address] Rail Splitter Gastroenterology 11/22/17 documented as of this encounter
--- OUTSIDE RECORDS SUMMARY | 2024-04-24 14:59 | XMS_ITS | Encounter Summary ---
Author Organization [facility] Address [address] [place] [address] Phone Care Team Providers Care Sonar Watchstander Name Role Phone Ravi Smith MD Primary Care Provider [phone] Aft, Kianna Machado MD PhD Unavailable [phone] Santiago Gilbert MD Unavailable [phone] Encounter Details Date Type Department Care Team (Late st Contact Info) Description 06/13/2018 Telephone [facility] Oncology [address] [place] [address] Fatemeh Zarate RN Social History Tobacco Use Types Packs/Day Years Used Date Smoking Tobacco: Former Cigarettes 2015 Smokeless Tobacco: Never Alcohol Use Standard Drinks/Week Comments Yes 0 (1 standard drink = 0.6 oz pur e alcohol) socially Comments No Sex and Gender Information Value Date Recorded Sex Assigned at Not on file Legal Sex Female 1:06 AM AREA COUNSELOR Gender Identity Not on file Sexual Orientation Not on file documented as of this encounter Miscellaneous Notes * Telephone Encounter - Fatemeh Zarate RN - 06/13/2018 4:22 PM CST ----- Message from Fatemeh Zarate RN sent at 05/28/2018 12:03 PM AREA COUNSELOR ----- Regarding: Bilateral PE 05/28/18 CT completed which showed bilateral PE. Asked pt to come to [facility] to discuss lovenox. DB 05/28/18 Lovenox copay [...] once daily faxed to pt pharmacy. DB COUNSELOR COUNSELOR documented in this encounter Plan of Treatment Not on file documented as of this encounter Visit Diagnoses Not on filedocumented in this encounter Care Teams Sonar Watchstander Relationship Specialty Start Date End Date Ravi Smith MD PCP - General 11/04/17 09/27/21 Aft, Kianna Machado MD PhD [address] [place] [address] Surgeon Surgical Oncology 11/22/17 Santiago Gilbert MD [address] [place] [address] Java Web Services Developer Gastroenterology 11/22/17 documented as of this encounter
--- OUTSIDE RECORDS SUMMARY | 2024-04-24 14:59 | XMS_ITS | Encounter Summary ---
Author Organization [facility] Address [address] [place] [address] Phone Care Team Providers Care Homicide Squad Commanding Officer Name Role Phone Ravi Smith MD Primary Care Provider [phone] Aft, Kianna Machado MD PhD Unavailable [phone] Santiago Gilbert MD Unavailable [phone] Reason for Visit * Cardiology (Routine) - Closed Specialty Diagnoses / Procedures Referred By Contronny t Referred To Contact Diagnoses Malignant neoplasm of upper-inner quadrant of left breast in female, estrogen receptor negative (HCC) Procedures Transthoracic Echo Complete W Doppler/CF Abbi Ventura MD Phone: tel: fax: [facility] (All Locations) Referral ID Status Reason Start Date Expiration Date Visits Re quested Visits Authorized [id number] Closed 06/04/2018 12/14/2019 1 1 Encounter Details Date Type Department Care Team (Latest Contact Info) Description 06/24/2018 11:00 AM PROGRESS DEVELOPER Ancillary Procedure [facility] Cardiology [address] [facility] [address] [place] [address] Malignant neoplasm of upper-inner quadrant of left [...] on file Legal Sex Female 1:06 AM PROGRESS DEVELOPER Gender Identity Not on file Sexual Orientation Not on file documented as of this encounter Plan of Treatment Not on file documented as of this encounter Procedures Procedure Name Priority Date/Time Associated Diagnosis Comments TRANSTHORACIC ECHO (TTE) COMPLETE W DOPPLER/CF WO CONTRAST Routine 06/24/2018 11:33 AM PROGRESS DEVELOPER Malignant neoplasm of upper-inner quadrant of left breast in female, estrogen receptor negative (CMS/HCC) documented in this encounter Results * TRANSTHORACIC ECHO (TTE) COMPLETE W DOPPLER/CF WO CONTRAST (06/24/2018 11:33 AM PROGRESS DEVELOPER) Anatomical Region Laterality Modality Ultrasound 06/24/2018 11:0 0 AM PROGRESS DEVELOPER Narrative 06/24/2018 3:00 PM PROGRESS DEVELOPER Patient name: Aleah Gerber Date of test: 06/24/2018 Type of test: TTE w/Doppler [facility] #: [id number] Date of : 1955 (F) Nursing Program Director: Olivia Narayanan [facility] RVT Referring Physician: ABBI VENTURA MD Contrast Agent: Contrast Administered by: Supervised/Interpreted by: Ronny Reed MD Diagnosis: Pre-Treatment Baseline Location: [facility] Reason for test: Pre-Treatment Baseline, Left [...] 2=Hypo 3=Akinetic 4=Dyskin./Aneurysm 0=Not visualized) Parasternal Long [place]:MAS=1 BAS=1 MP=1 BP=1 Parasternal Short [place]:MAS=1 MS=1 AL=1 MP=1 ML=1 MA=1 Apical 4 Chambers:=1 MS=1 BS=1 BL=1 AL=1 AL=1 Apical 2 Chambers:AI=1 AL=1 BI=1 BA=1 MA=1 AA=1 LV Global Longitudinal Strain: -20.6% ??(Normal <-19%) RV Global Longitudinal Strain: LV Function: Normal LV Ejection Fraction, ??(EF=54-74%) RV Function: Normal Septal Motion: Normal Pericardial Effusion: none seen Atrial Septum: Normal DOPPLER/COLOR FOLOW DOPPLER RESULTS: Diastolic Function: Normal Tricuspid Valve: normal TV Pulmonic Valve: Mild DE AV Regurgitation: No AR seen AV Stenosis: [...] no , no MS, normal TV, Mild DE. Diastolic function: Normal SUMMARY: LA is normal. Normal RV cavity size and function; EF=65%. LV cavity size is normal. Normal LV wall thickness/mass and normal LVF; EF=65%. Normal Inferior vena cava. Normal aorta. No previous study Confirmed on ??06/24/2018 - 15:00:45 by Ronny Reed MD By signing this report, the attending customs guard certifies that he or she has personally supervised and interpreted the echocardiogram and has reviewed and or edited and agrees with the written comments contained within the report. Procedure Note Ronny Reed MD - 06/24/2018 Patient name: Aleah Gerber Date of test: 06/24/2018 Type of test: TTE /[facility] #: [id number] Date of : 1955 (F) Nursing Program Director: Olivia Narayanan [facility] RVT Referring Physician: ABBI VENTURA MD Contrast Agent: Contrast Administered by: Supervised/Interpreted by: Ronny Reed MD Diagnosis: Pre-Treatment Baseline Location: [facility] Reason for test: Pre-Treatment Baseline, Left [...] 2=Hypo 3=Akinetic 4=Dyskin./Aneurysm 0=Not visualized) Parasternal Long [place]:MAS=1 BAS=1 MP=1 BP=1 Parasternal Short [place]:MAS=1 MS=1 AL=1 MP=1 ML=1 MA=1 Apical 4 Chambers:=1 MS=1 BS=1 BL=1 AL=1 AL=1 Apical 2 Chambers:AI=1 AL=1 BI=1 BA=1 MA=1 AA=1 LV Global Longitudinal Strain: -20.6% (Normal <-19%) RV Global Longitudinal Strain: LV Function: Normal LV Ejection Fraction, (EF=54-74%) RV Function: Normal Septal Motion: Normal Pericardial Effusion: none seen Atrial Septum: Normal DOPPLER/COLOR FOLOW DOPPLER RESULTS: Diastolic Function: Normal Tricuspid Valve: normal TV Pulmonic Valve: Mild DE AV Regurgitation: No AR seen AV Stenosis: [...] no , no MS, normal TV, Mild DE. Diastolic function: Normal SUMMARY: LA is normal. Normal RV cavity size and function; EF=65%. LV cavity size is normal. Normal LV wall thickness/mass and normal LVF; EF=65%. Normal Inferior vena cava. Normal aorta. No previous study Confirmed on 06/24/2018 - 15:00:45 by Ronny Reed MD By signing this report, the attending customs guard certifies that he or she has personally [...] (HCC) documented in this encounter Care Teams Homicide Squad Commanding Officer Relationship Specialty Start Date End Date aRvi Smith MD PCP - General 11/04/17 09/27/21 Aft, Kianna Machado MD PhD [address] [place] [address] Surgeon Surgical Oncology 11/22/17 Santiago Gilbert MD [address] [place] [address] Computer Scientist Gastroenterology 11/22/17 documented as of this encounter
--- OUTSIDE RECORDS SUMMARY | 2024-04-24 14:59 | XMS_ITS | Encounter Summary ---
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) Procedures [id number]: (Fluorouracil / Leucovorin / Oxaliplatin) 14 Day Cycles Abbi Ventura MD [address] [place] [address] [address] [place] [address] Phone: tel: fax: [facility] [address] [place] [address] Phone: tel: Referral ID Status Reason Start Date Expiration Date Visits Re quested Visits Authorized [id number] Closed 01/31/2018 05/05/2019 1 18 Encounter Details Date Type Department Care Team (Late st Contact Info) Description 05/07/2018 10:30 AM MAINTENANCE DIRECTOR Infusion [facility] [address] [place] [address] Malignant neoplasm of descending colon (CMS/HCC) (Primary [...] file Legal Sex Female 1:06 AM MAINTENANCE DIRECTOR Gender Identity Not on file Sexual Orientation Not on file documented as of this encounter Last Filed Vital Signs Vital Sign Reading Time Taken Comments Blood Pressure - - Pulse 100 05/07/2018 11:38 AM MAINTENANCE DIRECTOR Temperature - - Respiratory Rate - - Oxygen Saturation 97% 05/07/2018 11:38 AM MAINTENANCE DIRECTOR Inhaled Oxygen Concentration - - Weight - [...] issues. Disconnect kit given. Patient left ambulatory. TENANCE DIRECTOR documented in this encounter Plan of [...] (CMS/HCC) (HCC) New Bag 05/07/2018 11:34 AM MAINTENANCE DIRECTOR 10 mg 153 mL/h r fluorouracil (ADRUCIL) 4,200 mg in cadd cassette 84 mL infusion - for home infusion 4,200 mg (rounded from 4,176 mg = 1,800 mg/m2 ? 2.32 m2 Treatment Plan BSA from Recorded weight), intravenous, at 1.8 mL/hr, Administer over 46 Hours, over 46 hours, First dose on Sat05/07/18 at 1500, FOR PUMP PROBLEMS CALL [phone] IrritantIndications:Raheel russo neoplasm of descending colon (CMS/HCC) (HCC) Given 05/07/2018 2:12 PM MAINTENANCE DIRECTOR 4,200 mg 1.8 mL/hr fluorouracil (ADRUCIL) IV syringe 700 mg 14 mL 700 mg (rounded from 696 mg = 300 mg/m2 ? 2.32 m2 Treatment Plan BSA from Recorded weight), intravenous, Administer over 5 Minutes, Once, On Sat05/07/18 at 1430, For 1 dose, IrritantIndications:Raheel russo neoplasm of descending colon (CMS/HCC) (HCC) New Bag 05/07/2018 2:11 PM MAINTENANCE DIRECTOR 700 mg leucovorin 700 mg in [...] (CMS/HCC) (HCC) New Bag 05/07/2018 11:56 AM MAINTENANCE DIRECTOR 700 mg 132 mL/h r palonosetron injection 250 mcg 250 mcg (0.25 mg), intravenous, Once, On Sat05/07/18 at 1200, For 1 dose, For IV push, administer over 30 seconds.Indications:Maligna nt neoplasm of descending colon (CMS/HCC) (HCC) Given 05/07/2018 11:33 AM MAINTENANCE DIRECTOR 250 mcg documented in this encounter [...] 05/07/2018 documented in this encounter Care Teams Ribbing Machine Operator Relationship Specialty Start Date End Date Ravi Smith MD PCP - General 11/04/17 09/27/21 Aft, Kianna Machado MD PhD [address] [place] [address] Surgeon Surgical Oncology 11/22/17 Santiago Gilbert MD [address] [place] [address] Outreach Associate Gastroenterology 11/22/17 documented as of this encounter
--- OUTSIDE RECORDS SUMMARY | 2024-04-24 14:59 | XMS_ITS | Encounter Summary ---
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) Procedures [id number]: (Fluorouracil / Leucovorin / Oxaliplatin) 14 Day Cycles Abbi Ventura [facility] [address] [place] [address] Phone: tel: fax: [facility] Oncology [address] [place] [address] Phone: tel: Referral ID Status Reason Start Date Expiration Date Visits Re quested Visits Authorized [id number] Closed 01/31/2018 05/05/2019 1 18 Encounter Details Date Type Department Care Team (Late st Contact Info) Description 05/07/2018 9:30 AM DIRECTOR OF CUSTOMER ACQUISITION Office Visit [facility] Oncology [address] [place] [address] Abbi Ventura MD [address] [place] [address] Malignant neoplasm of descending colon [...] Legal Sex Female 1:06 AM DIRECTOR OF CUSTOMER ACQUISITION Gender Identity Not on file Sexual Orientation Not on file documented as of this encounter Last Filed Vital Signs Vital Sign Reading Time Taken Comments Blood Pressure 142/71 05/07/2018 9:48 AM DIRECTOR OF CUSTOMER ACQUISITION Pulse 136 05/07/2018 9:48 AM DIRECTOR OF CUSTOMER ACQUISITION Temperature 36.5 ??C (97.7 ??F) 05/07/2018 9:[address] Respiratory Rate 18 05/07/2018 9:48 AM DIRECTOR OF CUSTOMER ACQUISITION Oxygen Saturation 93% 05/07/2018 9:48 AM DIRECTOR OF CUSTOMER ACQUISITION Inhaled Oxygen Concentration - - Weight 109 kg (240 lb 4.8 oz) 05/07/2018 9:48 AM DIRECTOR OF CUSTOMER ACQUISITION Height 172.7 cm (5' 8 ) 05/07/2018 9:48 AM DIRECTOR OF CUSTOMER ACQUISITION Body Mass Index 36.54 05/07/2018 9:48 AM DIRECTOR OF CUSTOMER ACQUISITION documented in this encounter Progress Notes * Jamaica Montoya, OFFICE SUPPORT ASSISTANT - 05/07/2018 9:30 AM CST Patient Identifying [...] reviewed in [facility] ASSESSMENT: T4bN0 disease, Stage IIC [...] C/P. She was encouraged to schedule with front office coordinator for further evaluation. JENNIFFER Ly Nurse Practitioner for Dr. Abbi Ventura Medical Oncology [facility] CTOR OF CUSTOMER ACQUISITION documented in this encounter Plan of Treatment Not on file documented as of this encounter Results * (ABNORMAL) Comprehensive metabolic panel (05/21/2018 10:20 AM DIRECTOR OF CUSTOMER ACQUISITION) Sodium 140 135 - 145 mmol/L [facility] Potassium, pl 3.9 3.3 - 4.9 mmol/L [facility] Chloride 103 97 - 110 mmol/L [facility] CO2 23 22 - 32 mmol/L [facility] Anion gap 14 2 - 15 mmol/L [facility] BUN 19 8 - 25 mg/dL [facility] Creatinine 0.95 0.60 - 1.10 mg/dL [facility] Glucose 243(H) 70 - 199 mg/dL [facility] [...] 2017. Calcium 9.4 8.5 - 10.3 mg/dL [facility] Bilirubin, total 0.8 0.1 - 1.2 mg/dL [facility] Protein, pl 6.5 6.5 - 8.5 g/dL [facility] Albumin 4.0 3.5 - 5.0 g/dL [facility] Alk phos 92 40 - 130 Units/L [facility] ALT 45 7 - 45 Units/L [facility] AST 48(H) 10 - 45 Units/L [facility] Blood specimen (specimen) 05/21/2018 10:20 AM DIRECTOR OF CUSTOMER ACQUISITION 05/21/2018 10:27 AM DIRECTOR OF CUSTOMER ACQUISITION Narrative [facility] - 05/21/2018 10:53 AM DIRECTOR OF CUSTOMER ACQUISITION us Jamaica Montoya OFFICE SUPPORT ASSISTANT LAB BLOOD ORDERABLES Final Result [facility] Department [place] [address] * CEA (05/21/2018 10:20 AM DIRECTOR OF CUSTOMER ACQUISITION) CEA 4.0 <=5.0 ng/mL [facility] Comment: Interpretative Data: Reference Range: Non-Smokers: 0.0 - 5.0 ng/mL Smokers: 0.0 ? 6.5 ng/mL This test was developed and its performance characteristics determined by the [facility] in a manner consistent with CLIA requirements. This test has not been cleared or approved by the U.S. Food and Drug Administration. Current interpretive data was last revised 2018. Blood specimen (specimen) 05/21/2018 10:20 AM DIRECTOR OF CUSTOMER ACQUISITION 05/21/2018 11:44 AM DIRECTOR OF CUSTOMER ACQUISITION Narrative [facility] - 05/21/2018 12:35 PM DIRECTOR OF CUSTOMER ACQUISITION us Jamaica Montoya OFFICE SUPPORT ASSISTANT LAB BLOOD ORDERABLES Final Result [facility] Department [place] [address] * (ABNORMAL) CBC with auto differential (05/21/2018 10:20 AM DIRECTOR OF CUSTOMER ACQUISITION) WBC 4.8 3.8 - 9.9 K/cumm [facility] Hgb 9.5(L) 11.9 - 15.5 g/dL [facility] Hct 28.0(L) 35.6 - 45.5 % [facility] Plt 87(L) 150 - 400 K/cumm [facility] MPV 9.2 9.1 - 12.3 fL [facility] RBC 2.79(L) 3.90 - 5.20 M/cumm [facility] MCV 100.4(H) 81.3 - 96.4 fL [facility] MCH 34.1(H) 27.1 - 33.3 pg [facility] MCHC 33.9 32.3 - 35.7 g/dL [facility] RDW CV 18.7(H) 11.1 - 14.9 % [facility] RDW SD 67.5(H) 35.7 - 48.1 fL [facility] NRBC abs 0.03(H) 0.00 - 0.01 K/cumm [facility] Blood specimen (specimen) 05/21/2018 10:20 AM DIRECTOR OF CUSTOMER ACQUISITION 05/21/2018 10:27 AM DIRECTOR OF CUSTOMER ACQUISITION Narrative [facility] - 05/21/2018 10:30 AM DIRECTOR OF CUSTOMER ACQUISITION us Jamaica Montoya OFFICE SUPPORT ASSISTANT LAB BLOOD ORDERABLES Final Result [facility] Department [place] [address] documented in this encounter Visit Diagnoses Diagnosis [...] 05/21/2018 documented in this encounter Care Teams Chess Instructor Relationship Specialty Start Date End Date Ravi Smith MD PCP - General 11/04/17 09/27/21 Aft, Kianna Machado MD PhD [address] [place] [address] Surgeon Surgical Oncology 11/22/17 Santiago Gilbert MD [address] [place] [address] Neuro Urologist Gastroenterology 11/22/17 documented as of this encounter
--- OUTSIDE RECORDS SUMMARY | 2024-04-24 14:59 | XMS_ITS | Encounter Summary ---
Author Organization [facility] Address [address] [place] [address] Phone Care Team Providers Care Roll Up Helper Name Role Phone Ravi Smith MD Primary Care Provider [phone] Aft, Kianna Machado MD PhD Unavailable [phone] Santiago Gilbert MD Unavailable [phone] Encounter Details Date Type Department Care Team (Late st Contact Info) Description 05/28/2018 Orders Only [facility] Oncology [address] [place] [address] Abbi Ventura MD [address] [facility] [address] [place] [address] Other acute pulmonary embolism without acute cor [...] on file Legal Sex Female 1:06 AM CPHT Gender Identity Not on file Sexual Orientation [...] documented as of this encounter Care Teams Roll Up Helper Relationship Specialty Start Date End Date Ravi Smith MD PCP - General 11/04/17 09/27/21 Aft, Kianna Machado MD PhD [address] [place] [address] Surgeon Surgical Oncology 11/22/17 Santiago Gilbert MD [address] [place] [address] Canvas Cutter Gastroenterology 11/22/17 documented as of this encounter
--- OUTSIDE RECORDS SUMMARY | 2024-04-24 14:59 | XMS_ITS | Encounter Summary ---
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) Procedures CT chest abdomen pelvis with contrast Jamaica Montoya NP Phone: tel: fax: [facility] Referral ID Status Reason Start Date Expiration Date Visits Re quested Visits Authorized [id number] Closed 05/21/2018 05/28/2018 1 1 RTMENT CLINICIAN Reason for Visit * MRI/CAT/PET Scan (Routine) - Closed Specialty Diagnoses / Procedures Referred By Contac t Referred To Contact Radiology Diagnoses 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) Procedures CT chest abdomen pelvis with contrast Jamaica Montoya NP Phone: tel: fax: [facility] Referral ID Status Reason Start Date Expiration Date Visits Re quested Visits Authorized [id number] Closed 05/21/2018 05/28/2018 1 1 Encounter Details Date Type Department Care Team (Latest Contact Info) Description 05/28/2018 11:07 AM DEPARTMENT CLINICIAN - 05/28/2018 11:59 PM DEPARTMENT CLINICIAN Hospital Encounter [facility] Radiology at [facility] [address] [place] [address] Jamaica Montoya, POWER AND RECOVERY SUPERINTENDENT [address] [facility] [address] [place] [id number] Malignant neoplasm of descending colon (CMS/HCC) Discharge [...] on file Legal Sex Female 1:06 AM DEPARTMENT CLINICIAN Gender Identity Not on file Sexual Orientation Not on file documented as of this encounter Medications at Time of Discharge ALPRAZolam (XANAX) 0.25 mg tablet Take 1 tablet (0.25 mg total) by mouth 3 (three) times a day as needed for anxiety 11/07/2017 al & mag hydroxide simethicone-diph enhydramine-lido eriberto-nystatin (MAGIC MOUTHWASH) suspension 5-6-6-1Indicatio ns:Chemotherapy- Induced Mucositis Swish and swallow 10 [...] Read Routine (OP Routine) 05/28/2018 11:34 AM DEPARTMENT CLINICIAN Malignant neoplasm of descending colon (CMS/HCC) documented in this encounter Results * CT chest abdomen pelvis with contrast (05/28/2018 11:34 AM DEPARTMENT CLINICIAN) Anatomical Region Laterality Modality Body N/A Computed Tomogra phy 05/28/2018 12:0 5 PM DEPARTMENT CLINICIAN Impressions 05/28/2018 12:15 PM DEPARTMENT CLINICIAN 1. Extensive acute pulmonary embolism as described above. ??Right lower extremity deep vein thrombosis. 2. ??No evidence of metastatic disease involving chest, abdomen or pelvis. The Critical results were discussed with Dr. Ventura by Dr. Lobo on 05/28/2018 at 12:02 PM. Dictated by: Aretha Lobo M.D. Electronically signed by: Juaquin Reyes M.D., MPH Narrative 05/28/2018 12:15 PM DEPARTMENT CLINICIAN EXAMINATION: ??Computed tomography of the chest, abdomen [...] by: Juaquin Reyes M.D., MPH Jamaica Montoya POWER AND RECOVERY SUPERINTENDENT IMG CT PROCEDURES Final Re sult documented [...] For 1 dose Given 05/28/2018 11:42 AM DEPARTMENT CLINICIAN 500 Units Right Chest ioversol (OPTIRAY 350) syringe syringe 125 mL 125 mL, intravenous, Once in imaging, contrast, Starting on Sat05/28/18 at 1110, For 1 dose Given 05/28/2018 11:34 AM DEPARTMENT CLINICIAN 125 mL documented in this encounter Care Teams Candy Puller Relationship Specialty Start Date End Date Ravi Smith MD PCP - General 11/04/17 09/27/21 Aft, Kianna Machado MD PhD [address] [place] [address] Surgeon Surgical Oncology 11/22/17 Santiago Gilbert MD [address] [place] [address] Vendor Management Specialist Gastroenterology 11/22/17 documented as of this encounter
--- OUTSIDE RECORDS SUMMARY | 2024-04-24 15:00 | XMS_ITS | Encounter Summary ---
Author Organization [facility] Healthcare Address [address] [place] [address] Care Team Providers Care Casting Assistant Name Role Phone Ravi Smith MD Primary Care Provider [phone] Kianna Bunch MD PhD Unavailable [phone] Santiago Gilbert MD Unavailable [phone] Encounter Details Date Type Department Care Team (Late st Contact Info) Description 04/24/2018 7:40 [place] [address] Social History Tobacco Use Types Packs/Day Years Used Date Smoking Tobacco: Former Cigarettes 2015 Smokeless Tobacco: Never Alcohol Use Standard Drinks/Week Comments Yes 0 (1 standard drink = 0.6 oz pur e alcohol) socially Comments No Sex and Gender Information Value Date Recorded Sex Assigned at Not on file Legal Sex Female 1:06 AM PRICING CLERK Gender Identity Not on file Sexual Orientation Not on file documented as of this encounter Plan of Treatment Not on file documented as of this encounter Visit Diagnoses Not on filedocumented in this encounter Care Teams Casting Assistant Relationship Specialty Start Date End Date Ravi Smith MD PCP - General 11/04/17 09/27/21 Kianna Bunch MD PhD [address] [place] [address] [address] [place] [address] Surgeon Surgical Oncology 11/22/17 Santiago Gilbert MD [address] [place] [address] Ship Boat Or Barge Mate Gastroenterology 11/22/17 documented as of this encounter
--- OUTSIDE RECORDS SUMMARY | 2024-04-24 15:00 | XMS_ITS | Encounter Summary ---
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, estrogen receptor negative (HCC) Procedures US Vein Duplex Upper Extremity Right Limited Abbi Ventura MD Phone: tel: fax: [facility] (All Locations) Referral ID Status Reason Start Date Expiration Date Visits Re quested Visits Authorized [id number] Closed 04/10/2018 10/20/2019 1 1 Encounter Details Date Type Department Care Team (Latest Contact Info) Description 04/10/2018 3:30 PM ROPE TWISTING MACHINE OPERATOR Ancillary Procedure [facility] Cardiology [address] [facility] [address] [place] [address] Malignant neoplasm of descending colon (CMS/HCC); Malignant [...] on file Legal Sex Female 1:06 AM ROPE TWISTING MACHINE OPERATOR Gender Identity Not on file [...] 05/01/2018 07:30 PM Antonio Blanchard M.D., F.A.C.C. welder production line arc SJ/RL cc: ABBI VENTURA M.D. 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
--- OUTSIDE RECORDS SUMMARY | 2024-04-24 15:00 | XMS_ITS | Encounter Summary ---
Author Organization [facility] Address [address] [place] [address] Phone Care Team Providers Care Furnace Process Supervisor Name Role Phone Ravi Smith MD Primary Care Provider [phone] Aft, Kianna Machado MD PhD Unavailable [phone] Santiago Gilbert MD Unavailable [phone] Encounter Details Date Type Department Care [...] file Legal Sex Female 1:06 AM INDUSTRIAL MAINTENANCE INSTRUCTOR Gender Identity Not on file Sexual [...] on filedocumented in this encounter Care Teams Furnace Process Supervisor Relationship Specialty Start Date End Date Ravi Smith MD PCP - General 11/04/17 09/27/21 Aft, Kianna Machado MD PhD [address] [place] [address] Surgeon Surgical Oncology 11/22/17 Santiago Gilbert MD [address] [place] [address] Attendance Secretary Gastroenterology 11/22/17 documented as of this encounter
--- OUTSIDE RECORDS SUMMARY | 2024-04-24 15:00 | XMS_ITS | Encounter Summary ---
Author Organization [facility] Address [address] [place] [address] Phone Care Team Providers Care High [employer] Social Science Teacher Name Role Phone Ravi Smith MD Primary Care Provider [phone] Aft, Kianna Machado MD PhD Unavailable [phone] Santiago Gilbert MD Unavailable [phone] Encounter Details Date Type Department Care Team (Late st Contact Info) Description 03/25/2018 Telephone [facility] Oncology [address] [place] [address] Fatemeh Zarate RN Social History Tobacco Use Types Packs/Day Years Used Date Smoking Tobacco: Former Cigarettes 2015 Smokeless Tobacco: Never Alcohol Use Standard Drinks/Week Comments Yes 0 (1 standard drink = 0.6 oz pur e alcohol) socially Comments No Sex and Gender Information Value Date Recorded Sex Assigned at Not on file Legal Sex Female 1:06 AM ANCHOR OPERATOR Gender Identity Not on file Sexual Orientation Not on file documented as of this encounter Miscellaneous Notes * Telephone Encounter - Fatemeh Zarate RN - 03/25/2018 5:43 PM CST ----- Message from Fatemeh Zarate RN sent at 03/25/2018 11:46 AM ANCHOR OPERATOR ----- Regarding: Potassium 03/25/18 Aleah Gerber, 59 [...] meq once daily everyday. [facility] [place] Pt verbalized an understanding. DB OR OPERATOR OR OPERATOR documented in this encounter Plan of Treatment Not on file documented as of this encounter Visit Diagnoses Not on filedocumented in this encounter Care Teams High School Social Science Teacher Relationship Specialty Start Date End Date Ravi Smith MD PCP - General 11/04/17 09/27/21 Aft, Kianna Machado MD PhD [address] [place] [address] Surgeon Surgical Oncology 11/22/17 Santiago Gilbert MD [address] [place] [address] Incident Response Specialist Gastroenterology 11/22/17 documented as of this encounter
--- OUTSIDE RECORDS SUMMARY | 2024-04-24 15:00 | XMS_ITS | Encounter Summary ---
Author Organization [facility] Address [address] [place] [address] Phone Care Team Providers Care Audioprosthologist Name Role Phone Ravi Smith MD Primary Care Provider [phone] Aft, Kianna Machado MD PhD Unavailable [phone] Santiago Gilbert MD Unavailable Reason for Visit * Reason Comments staff visit disconnect pump for evaluation Encounter Details Date Type Department Care Team (Late st Contact Info) Description 04/10/2018 3:00 PM WIRE BOUND BOX MACHINE HELPER Clinical Support [facility] Oncology [address] [place] [address] Social History Tobacco Use Types Packs/Day Years Used Date Smoking Tobacco: Former Cigarettes 2015 Smokeless Tobacco: Never Alcohol Use Standard Drinks/Week Comments Yes 0 (1 standard drink = 0.6 oz pur e alcohol) socially Comments No Sex and Gender Information Value Date Recorded Sex Assigned at Not on file Legal Sex Female 1:06 AM WIRE BOUND BOX MACHINE HELPER Gender Identity Not on file Sexual Orientation Not on file documented as of this encounter Nursing Notes * Kristin Walters - 04/10/2018 3:00 PM CST Patient presents today with CADD pump malfunctioning. Pump reads high pressure alarm when running. Patient reports this happened around 8:30am, states she called [facility] homecare and was told to turn off the pump and come in to [facility] for further evaluation. Pump delivered ~40mL of 5FU out of 111mL.Disconnected, PAC would not flush and no blood return noted. Patient reports tenderness on and around port site, and noted slight swelling. PAC de-accessed and notified Dr. Ventura to assess further. Dr. Ventura ordered the pt to get an ultrasound next door to rule out a blood clot. BOUND BOX MACHINE HELPER * Rhoda Jo - 04/10/2018 3:00 PM [...] again tomorrow if the port is functioning. BOUND BOX MACHINE HELPER documented in this encounter Plan of Treatment Not on file documented as of this encounter Visit Diagnoses Not on filedocumented in this encounter Care Teams Audioprosthologist Relationship Specialty Start Date End Date Ravi Smith MD PCP - General 11/04/17 09/27/21 Aft, Kianna Machado MD PhD [address] [place] [address] Surgeon Surgical Oncology 11/22/17 Santiago Gilbert MD [address] [place] [address] Airport Duty Manager Gastroenterology 11/22/17 documented as of this encounter
--- OUTSIDE RECORDS SUMMARY | 2024-04-24 15:00 | XMS_ITS | Encounter Summary ---
Author Organization [facility] Address [address] [place] [address] Phone Care Team Providers Care Sandfill Operator Name Role Phone Ravi Smith MD Primary Care Provider [phone] Aft, Kianna Machado MD PhD Unavailable [phone] Santiago Gilbert MD Unavailable [phone] Encounter Details Date Type Department Care [...] Legal Sex Female 1:06 AM SOCIAL SCIENCES PROFESSOR Gender Identity Not on file Sexual [...] on filedocumented in this encounter Care Teams Sandfill Operator Relationship Specialty Start Date End Date Ravi Smith MD PCP - General 11/04/17 09/27/21 Aft, Kianna Machado MD PhD [address] [place] [address] Surgeon Surgical Oncology 11/22/17 Santiago Gilbert MD [address] [place] [address] Exterminator Helper Termite Gastroenterology 11/22/17 documented as of this encounter
--- OUTSIDE RECORDS SUMMARY | 2024-04-24 15:00 | XMS_ITS | Encounter Summary ---
Author Organization [facility] Address [address] [place] [address] Phone Care Team Providers Care Roofing Subcontractor Name Role Phone Ravi Smith MD Primary Care Provider [phone] Aft, Kianna Machado MD PhD Unavailable [phone] Santiago Gilbert MD Unavailable [phone] Encounter Details Date Type Department Care Team (Late st Contact Info) Description 03/21/2018 Orders Only [facility] [address] [place] [address] Abbi Ventura MD 10 [facility] [address] [place] [address] Diarrhea, unspecified type (Primary Dx); Dehydration Social History Tobacco Use Types Packs/Day Years Used Date Smoking Tobacco: Former Cigarettes 2015 Smokeless Tobacco: Never Alcohol Use Standard Drinks/Week Comments Yes 0 (1 standard drink = 0.6 oz pur e alcohol) socially Comments No Sex and Gender Information Value Date Recorded Sex Assigned at Not on file Legal Sex Female 1:06 AM VEHICLE SERVICE ATTENDANT Gender Identity Not on file Sexual Orientation Not on file documented as of this encounter Plan of Treatment Not on file documented as of this encounter Results * Clostridium difficile assay Stool (03/21/2018 11:00 AM VEHICLE SERVICE ATTENDANT) Report Final Report: Negative for: Clostridium difficile toxin. [facility] Stool 03/21/2018 11:0 0 AM VEHICLE SERVICE ATTENDANT 03/21/2018 4:44 PM VEHICLE SERVICE ATTENDANT Narrative [facility] - 03/22/2018 5:27 AM VEHICLE SERVICE ATTENDANT Abbi Ventura MD LAB MICROBIOLOGY - GENERAL ORDER YFN Final Result Performing Organization Address [facility] Co de Phone Number [facility] [place] [address] * Stool culture Stool (03/21/2018 11:00 AM VEHICLE SERVICE ATTENDANT) Direct Specimen Exam Shiga Toxin Testing: Antigen detection assay for Shiga-toxin NEGATIVE for Shiga Toxin 1 and Shiga Toxin 2. [facility] Report Final Report: No growth of enteric bacterial pathogens [facility] Stool 03/21/2018 11:0 0 AM VEHICLE SERVICE ATTENDANT 03/21/2018 4:44 PM VEHICLE SERVICE ATTENDANT Narrative [facility] - 03/24/2018 10:23 AM VEHICLE SERVICE ATTENDANT Specimen was received in a sahara Segun transport tube. Testing performed by [facility] ([phone]). Routine stool cultures include procedures to detect Salmonella, Shigella, Edwardsiella, Aeromonas, Pleisiomonas, Campylobacter, Yersinia, E. coli O157, and Shiga-like toxins. ?? Vibrio is cultured only upon special request. ??If Vibrio is suspected, please call the laboratory at [phone]. Interpretive data was last updated September 10, 2016. Abbi Ventura MD LAB MICROBIOLOGY - GENERAL ORDER YFN Final Result Performing Organization Address [facility] Co de Phone Number [facility] [address] documented in this encounter Visit Diagnoses Diagnosis Diarrhea, unspecified type Diarrhea, unspecified type- Primary Dehydration documented in this encounter Care Teams Roofing Subcontractor Relationship Specialty Start Date End Date Ravi Smith MD PCP - General 11/04/17 09/27/21 Aft, Kianna Machado MD PhD [address] [place] [address] Surgeon Surgical Oncology 11/22/17 Santiago Gilbert MD [address] [facility] [place] [address] Basketball Scout Gastroenterology 11/22/17 documented as of this encounter
--- OUTSIDE RECORDS SUMMARY | 2024-04-24 15:00 | XMS_ITS | Encounter Summary ---
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) Procedures mFOLFOX6: (Fluorouracil / Leucovorin / Oxaliplatin) 14 Day Cycles Abbi Ventura MD 10 [facility] [address] [place] [address] Phone: tel: fax: [facility] [address] [place] [address] Phone: tel: Referral ID Status Reason Start Date Expiration Date Visits Re quested Visits Authorized [id number] Closed 01/31/2018 05/05/2019 1 18 Encounter Details Date Type Department Care Team (Latest Contact Info) Description 04/09/2018 9:45 AM NET WPF DEVELOPER Clinical Support [facility] [address] [place] [address] Malignant neoplasm of descending colon (CMS/HCC) Social History Tobacco Use Types Packs/Day Years Used Date Smoking Tobacco: Former Cigarettes 1 2015 Smokeless Tobacco: Never Alcohol Use Standard Drinks/Week Comments Yes 0 (1 standard drink = 0.6 oz pur e alcohol) socially Comments No Sex and Gender Information Value Date Recorded Sex Assigned at Not on file Legal Sex Female 1:06 AM NET WPF DEVELOPER Gender Identity Not on file Sexual Orientation Not on file documented as of this encounter Plan of Treatment Not on file documented as of this encounter Procedures Procedure Name Priority Date/Time Associated Diagnosis Comments DIFFERENTIAL AUTO Routine 04/09/2018 10: 12 AM NET WPF DEVELOPER Malignant neoplasm of descending colon (CMS/HCC) CBC WITH AUTO DIFFERENTIAL Routine 04/09/2018 10:12 AM NET WPF DEVELOPER Malignant neoplasm of descending colon (CMS/HCC) CEA Routine 04/09/2018 10:12 AM NET WPF DEVELOPER Malignant neoplasm of descending colon (CMS/HCC) COMPREHENSIVE METABOLIC PANEL STAT 04/09/2018 10:12 AM NET WPF DEVELOPER Malignant neoplasm of descending colon (CMS/HCC) documented in this encounter Results * (ABNORMAL) Differential, auto (04/09/2018 10:12 AM NET WPF DEVELOPER) Neutrophil abs 1.6(L) 1.7 - 6.5 K/cumm [...] revised on 2017. Lymphocyte pct 36.7 % [facility] Comment: Interpretive Data Percent cell count reference ranges are not reported, since discordance with absolute values may lead to misinterpretation of CBC data. Current Interpretive Data was last revised on 2017. Monocyte pct 10.8 % [facility] Comment: Interpretive Data Percent cell count reference ranges are not reported, since discordance with absolute values may lead to misinterpretation of CBC data. Current Interpretive Data was last revised on 2017. Eosinophil pct 7.5 % [facility] Comment: Interpretive Data Percent cell count reference ranges are not reported, since discordance with absolute values may lead to misinterpretation of CBC data. Current Interpretive Data was last revised on 2017. Basophil pct 1.4 % [facility] Comment: Interpretive Data Percent cell count reference ranges are not reported, since discordance with absolute values may lead to misinterpretation of CBC data. Current Interpretive Data was last revised on 2017. Blood specimen (specimen) 04/09/2018 10:12 AM NET WPF DEVELOPER 04/09/2018 10:20 AM NET WPF DEVELOPER Narrative [facility] - 04/09/2018 10:23 AM NET WPF DEVELOPER us Abbi Ventura MD LAB BLOOD ORDERABLES Final Resul t [facility] Department [place] [address] * (ABNORMAL) CBC with auto differential (04/09/2018 10:12 AM NET WPF DEVELOPER) WBC 3.6(L) 3.8 - 9.9 K/cumm [facility] Hgb 10.8(L) 11.9 - 15.5 g/dL [facility] Hct 32.2(L) 35.6 - 45.5 % [facility] Plt 131(L) 150 - 400 K/cumm [facility] MPV 8.8(L) 9.1 - 12.3 fL [facility] RBC 3.44(L) 3.90 - 5.20 M/cumm [facility] MCV 93.6 81.3 - 96.4 fL [facility] MCH 31.4 27.1 - 33.3 pg [facility] MCHC 33.5 32.3 - 35.7 g/dL [facility] RDW CV 16.7(H) 11.1 - 14.9 % [facility] RDW SD 55.3(H) 35.7 - 48.1 fL [facility] NRBC abs 0.00 0.00 - 0.01 K/cumm [facility] Blood specimen (specimen) 04/09/2018 10:12 AM NET WPF DEVELOPER 04/09/2018 10:20 AM NET WPF DEVELOPER Narrative [facility] - 04/09/2018 10:23 AM NET WPF DEVELOPER us Abbi Ventura MD LAB BLOOD ORDERABLES Final Resul t [facility] Department [place] [address] * (ABNORMAL) Comprehensive metabolic panel (04/09/2018 10:12 AM NET WPF DEVELOPER) Sodium 138 135 - 145 mmol/L [facility] Potassium, pl 4.0 3.3 - 4.9 mmol/L [facility] Chloride 104 97 - 110 mmol/L [facility] CO2 23 22 - 32 mmol/L [facility] Anion gap 11 2 - 15 mmol/L [facility] BUN 23 8 - 25 mg/dL [facility] Creatinine 1.16(H) 0.60 - 1.10 mg/dL [facility] Glucose 201(H) 70 - 199 mg/dL [facility] Comment: [...] 2017. Calcium 9.4 8.5 - 10.3 mg/dL [facility] Bilirubin, total 0.6 0.1 - 1.2 mg/dL [facility] Protein, pl 6.8 6.5 - 8.5 g/dL [facility] Albumin 4.1 3.5 - 5.0 g/dL [facility] Alk phos 94 40 - 130 Units/L [facility] ALT 30 7 - 45 Units/L [facility] AST 30 10 - 45 Units/L [facility] Blood specimen (specimen) 04/09/2018 10:12 AM NET WPF DEVELOPER 04/09/2018 10:20 AM NET WPF DEVELOPER Narrative [facility] - 04/09/2018 10:38 AM NET WPF DEVELOPER Abbi Ventura MD LAB BLOOD ORDERABLES Final Resul t Performing Organization Address [facility] de Phone Number [facility] [place] [address] * CEA (04/09/2018 10:12 AM NET WPF DEVELOPER) CEA 4.2 0.0 - 5.0 ng/mL [facility] Comment: Interpretative Data: Reference Range: Non-Smokers: 0.0 - 5.0 ng/mL Smokers: 0.0 ? 6.5 ng/mL This test was developed and its performance characteristics determined by the [facility] in a manner consistent with CLIA requirements. This test has not been cleared or approved by the U.S. Food and Drug Administration. Current interpretive data was last revised 2018. Blood specimen (specimen) 04/09/2018 10:12 AM NET WPF DEVELOPER 04/09/2018 11:26 AM NET WPF DEVELOPER Narrative [facility] - 04/09/2018 12:05 PM NET WPF DEVELOPER Abbi Ventura MD LAB BLOOD ORDERABLES Final Resul t Performing Organization Address [facility] de Phone Number 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
--- OUTSIDE RECORDS SUMMARY | 2024-04-24 15:00 | XMS_ITS | Encounter Summary ---
Author Organization [facility] Address [address] [place] [address] Phone Care Team Providers Care Iron Pellet Tester Name Role Phone Ravi Smith MD Primary Care Provider [phone] Aft, Kianna Machado MD PhD Unavailable [phone] Santiago Gilbert MD Unavailable [phone] Encounter Details Date Type Department Care Team (Late st Contact Info) Description 03/25/2018 Orders Only [facility] [address] [place] [address] Abbi Ventura MD [address] [facility] [address] [place] [address] Social History Tobacco Use Types Packs/Day Years Used Date Smoking Tobacco: Former Cigarettes 2015 Smokeless Tobacco: Never Alcohol Use Standard Drinks/Week Comments Yes 0 (1 standard drink = 0.6 oz pur e alcohol) socially Comments No Sex and Gender Information Value Date Recorded Sex Assigned at Not on file Legal Sex Female 1:06 AM CHOIR TEACHER Gender Identity Not on file Sexual Orientation Not on file documented as of this encounter Plan of Treatment Not on file documented as of this encounter Visit Diagnoses Not on filedocumented in this encounter Care Teams Iron Pellet Tester Relationship Specialty Start Date End Date Ravi Smith MD PCP - General 11/04/17 09/27/21 Aft, Kianna Machado MD PhD [address] [place] [address] Surgeon Surgical Oncology 11/22/17 Santiago Gilbert MD [address] [place] [address] Control Panel Operator Crude Unit Gastroenterology 11/22/17 documented as of this encounter
--- OUTSIDE RECORDS SUMMARY | 2024-04-24 15:00 | XMS_ITS | Encounter Summary ---
Author Organization 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) Procedures mFOLFOX6: (Fluorouracil / Leucovorin / Oxaliplatin) 14 Day Cycles Abbi Ventura MD [address] [place] [address] [address] [place] [address] Phone: tel: fax: [facility] [address] [place] [address] Phone: tel: Referral ID Status Reason Start Date Expiration Date Visits Re quested Visits Authorized [id number] Closed 01/31/2018 05/05/2019 1 18 Encounter Details Date Type Department Care Team (Late st Contact Info) Description 04/09/2018 10:15 AM WAREHOUSE FORKLIFT OPERATOR Office Visit [facility] [address] [place] [address] Abbi Ventura MD 10 [facility] [address] [place] [address] Malignant neoplasm of descending colon [...] file Legal Sex Female 1:06 AM WAREHOUSE FORKLIFT OPERATOR Gender Identity Not on file Sexual Orientation Not on file documented as of this encounter Last Filed Vital Signs Vital Sign Reading Time Taken Comments Blood Pressure 138/79 04/09/2018 10:27 AM WAREHOUSE FORKLIFT OPERATOR Pulse 110 04/09/2018 10:27 AM WAREHOUSE FORKLIFT OPERATOR Temperature 37 ??C (98.6 ??F) 04/09/2018 10: 27 AM WAREHOUSE FORKLIFT OPERATOR Respiratory Rate 16 04/09/2018 10:2 7 AM WAREHOUSE FORKLIFT OPERATOR Oxygen Saturation 97% 04/09/2018 10: 27 AM WAREHOUSE FORKLIFT OPERATOR Inhaled Oxygen Concentration - - Weight 107.1 kg (236 lb 3.2 oz) 018 10:27 AM WAREHOUSE FORKLIFT OPERATOR Height 172.7 cm (5' 8 ) 04/09/2018 10:2 7 AM WAREHOUSE FORKLIFT OPERATOR Body Mass Index 35.91 04/09/2018 10:27 AM WAREHOUSE FORKLIFT OPERATOR documented in this encounter Progress Notes [...] Being followed by Dr. Demi Ventura MD Visual And Stock Associatedye house helper Division of Oncology Section of Medical Oncology [facility] Assembler [employer] completed by using [employer]ista Fluency Direct speaking software, therefore, transcriptionvariances may occur. HOUSE FORKLIFT OPERATOR HOUSE FORKLIFT OPERATOR documented in this encounter Plan of Treatment Not on file documented as of this encounter Results * (ABNORMAL) Comprehensive metabolic panel (04/23/2018 8:10 AM WAREHOUSE FORKLIFT OPERATOR) Sodium 142 135 - 145 mmol/L [facility] Potassium, pl 4.0 3.3 - 4.9 mmol/L [facility] Chloride 107 97 - 110 mmol/L [facility] CO2 25 22 - 32 mmol/L [facility] Anion gap 10 2 - 15 mmol/L [facility] BUN 19 8 - 25 mg/dL [facility] Creatinine 1.15(H) 0.60 - 1.10 mg/dL [facility] Glucose 276(H) 70 - 199 mg/dL [facility] [...] 2017. Calcium 8.8 8.5 - 10.3 mg/dL [facility] Bilirubin, total 0.4 0.1 - 1.2 mg/dL [facility] Protein, pl 6.2(L) 6.5 - 8.5 g/dL [facility] Albumin 3.8 3.5 - 5.0 g/dL [facility] Alk phos 90 40 - 130 Units/L [facility] ALT 25 7 - 45 Units/L [facility] AST 28 10 - 45 Units/L [facility] Blood specimen (specimen) 04/23/2018 8:10 AM WAREHOUSE FORKLIFT OPERATOR 04/23/2018 8:16 AM WAREHOUSE FORKLIFT OPERATOR Narrative [facility] - 04/23/2018 9:34 AM WAREHOUSE FORKLIFT OPERATOR us Abbi Ventura MD LAB BLOOD ORDERABLES Final Resul t [facility] [place] [address] * (ABNORMAL) CBC with auto differential (04/23/2018 8:10 AM WAREHOUSE FORKLIFT OPERATOR) WBC 3.6(L) 3.8 - 9.9 K/cumm [facility] Hgb 9.8(L) 11.9 - 15.5 g/dL [facility] Hct 29.3(L) 35.6 - 45.5 % [facility] Plt 80(L) 150 - 400 K/cumm [facility] MPV 9.0(L) 9.1 - 12.3 fL [facility] RBC 3.08(L) 3.90 - 5.20 M/cumm [facility] MCV 95.1 81.3 - 96.4 fL [facility] MCH 31.8 27.1 - 33.3 pg [facility] MCHC 33.4 32.3 - 35.7 g/dL [facility] RDW CV 17.2(H) 11.1 - 14.9 % [facility] RDW SD 58.0(H) 35.7 - 48.1 fL [facility] NRBC abs 0.02(H) 0.00 - 0.01 K/cumm [facility] Blood specimen (specimen) 04/23/2018 8:10 AM WAREHOUSE FORKLIFT OPERATOR 04/23/2018 8:16 AM WAREHOUSE FORKLIFT OPERATOR Narrative [facility] - 04/23/2018 8:25 AM WAREHOUSE FORKLIFT OPERATOR us Abbi Ventura MD LAB BLOOD ORDERABLES Final Resul t [facility] Department [place] [address] documented in this encounter Visit Diagnoses Diagnosis [...] 04/23/2018 documented in this encounter Care Teams Undercutter Operator Relationship Specialty Start Date End Date Ravi Smith MD PCP - General 11/04/17 09/27/21 Aft, Kianna Machado MD PhD [address] [place] [address] Surgeon Surgical Oncology 11/22/17 Santiago Gilbert MD [address] [facility] [address] [place] [address] Convention Services Manager Gastroenterology 11/22/17 documented as of this encounter
--- OUTSIDE RECORDS SUMMARY | 2024-04-24 15:00 | XMS_ITS | Encounter Summary ---
Author Organization [facility] Address [address] [place] [address] Phone Care Team Providers Care Embossing Press Operator Apprentice Name Role Phone Ravi Smith MD Primary Care Provider [phone] Aft, Kianna Machado MD PhD Unavailable [phone] Santiago Gilbert MD Unavailable Encounter Details Date Type Department Care Team (Late st Contact Info) Description 04/11/2018 Orders Only [facility] [address] [place] [address] Abbi Ventura MD 10 [facility] [address] [place] [address] 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) Social History Tobacco Use Types Packs/Day Years Used Date Smoking Tobacco: Former Cigarettes 2015 Smokeless Tobacco: Never Alcohol Use Standard Drinks/Week Comments Yes 0 (1 standard drink = 0.6 oz pur e alcohol) socially Comments No Sex and Gender Information Value Date Recorded Sex Assigned at Not on file Legal Sex Female 1:06 AM HEALTH SAFETY INSTRUCTOR Gender Identity Not on file Sexual Orientation Not on file documented as of this encounter Plan of Treatment Not on file documented as of this encounter Visit Diagnoses Diagnosis 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
--- OUTSIDE RECORDS SUMMARY | 2024-04-24 15:00 | XMS_ITS | Encounter Summary ---
Author Organization [facility] Address [address] [place] [address] Phone Care Team Providers Care Manometer Technician Name Role Phone Ravi Smith MD Primary Care Provider [phone] Aft, Kianna Machado MD PhD Unavailable [phone] Santiago Gilbert MD Unavailable [phone] Encounter Details Date Type Department Care Team (Late st Contact Info) Description 04/17/2018 Orders Only [facility] Oncology [address] [place] [address] Fatemeh Zarate, LYDIA Social History Tobacco Use Types Packs/Day Years Used Date Smoking Tobacco: Former Cigarettes 2015 Smokeless Tobacco: Never Alcohol Use Standard Drinks/Week Comments Yes 0 (1 standard drink = 0.6 oz pur e alcohol) socially Comments No Sex and Gender Information Value Date Recorded Sex Assigned at Not on file Legal Sex Female 1:06 AM CHURCH SECRETARY Gender Identity Not on file Sexual Orientation Not on file documented as of this encounter Ordered Prescriptions Prescription Sig Dispense Quantity Refills Last Filled Start Date End Date al & mag hydroxide simethicone-diphen hydramine-lidocain e-nystatin (MAGIC MOUTHWASH) suspension 2-3-5-1Indications :Chemotherapy-Radha yohan Mucositis Swish and swallow 10 [...] on filedocumented in this encounter Care Teams Manometer Technician Relationship Specialty Start Date End Date Ravi Smith MD PCP - General 11/04/17 09/27/21 Aft, Kianna Machado MD PhD [address] [place] [address] Surgeon Surgical Oncology 11/22/17 Santiago Gilbert MD [address] [place] [address] Stationary Plant Operators Gastroenterology 11/22/17 documented as of this encounter
--- OUTSIDE RECORDS SUMMARY | 2024-04-24 15:00 | XMS_ITS | Encounter Summary ---
Author Organization [facility] Address [address] [place] [address] Care Team Providers Care Instrumentation And Control Technician Name Role Phone Ravi Smith MD Primary Care Provider [phone] Aileent, Kianna Machado MD PhD Unavailable [phone] Santiago Gilbert MD Unavailable [phone] Encounter Details Date Type Department Care Team (Late st Contact Info) Description 04/11/2018 Orders Only Radiology [address] [place] [address] Alex Arthur MD [address] [facility] [address] [place], [place] [id number] Social History Tobacco Use Types Packs/Day Years Used Date Smoking Tobacco: Former Cigarettes 2015 Smokeless Tobacco: Never Alcohol Use Standard Drinks/Week Comments Yes 0 (1 standard drink = 0.6 oz pur e alcohol) socially Comments No Sex and Gender Information Value Date Recorded Sex Assigned at Not on file Legal Sex Female 1:06 AM LITIGATION ATTORNEY Gender Identity Not on file Sexual Orientation Not on file documented as of this encounter Plan of Treatment Not on file documented as of this encounter Visit Diagnoses Not on filedocumented in this encounter Care Teams Instrumentation And Control Technician Relationship Specialty Start Date End Date Ravi Smith MD PCP - General 11/04/17 09/27/21 Aft, Kianna Machado MD PhD [address] [place] [address] Surgeon Surgical Oncology 11/22/17 Santiago Gilbert MD [address] [place] [address] Wash Mill Operator Gastroenterology 11/22/17 documented as of this encounter
--- OUTSIDE RECORDS SUMMARY | 2024-04-24 15:00 | XMS_ITS | Encounter Summary ---
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, estrogen receptor negative (HCC) Procedures IR Follow Up Outpatient IR Contrast Injection Evaluation Central Venous Access Device Abbi Ventura MD Phone: tel: fax: [facility] Referral ID Status Reason Start Date Expiration Date Visits Re quested Visits Authorized [id number] Closed 04/11/2018 10/21/2019 1 1 NG ROOM TABLES SET UP ATTENDANT Encounter Details Date Type Department Care Team (Late st Contact Info) Description 04/11/2018 Orders Only [facility] Oncology [address] [place] [address] Abbi Ventura MD [address] [place] [address] Malignant neoplasm of descending colon (CMS/HCC) (Primary [...] on file Legal Sex Female 1:06 AM DINING ROOM TABLES SET UP ATTENDANT Gender Identity Not on file Sexual Orientation Not on file documented as of this encounter Plan of Treatment Not on file documented as of this encounter Results * IR Follow Up Outpatient (04/11/2018 12:45 PM DINING ROOM TABLES SET UP ATTENDANT) Anatomical Region Laterality Modality Ultrasound 04/11/2018 3:09 PM DINING ROOM TABLES SET UP ATTENDANT Impressions 04/11/2018 3:09 PM DINING ROOM TABLES SET UP ATTENDANT Sluggish flow in the port resolved with alteplase dwell. Port fully functional following this and the patient was reconnected to her pump without issue. Electronically signed by: Alex Arthur M.D. Narrative 04/11/2018 3:09 PM DINING ROOM TABLES SET UP ATTENDANT EXAMINATION: ??INTERVENTIONAL RADIOLOGY FOLLOW-UP VISIT REFERRAL: ??Dr. [...] by: Alex Arthur M.D. Abbi Ventura MD [facility] IR PROCEDURES Final Result documented in this [...] (HCC) documented in this encounter Care Teams Ground Crew Chief Relationship Specialty Start Date End Date Ravi Smith MD PCP - General 11/04/17 09/27/21 Aft, Kianna Machado MD PhD [address] [place] [address] Surgeon Surgical Oncology 11/22/17 Santiago Gilbert MD [address] [place] [address] Patient Financial Rep Gastroenterology 11/22/17 documented as of this encounter
--- OUTSIDE RECORDS SUMMARY | 2024-04-24 15:00 | XMS_ITS | Encounter Summary ---
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) Procedures Dihydropyrimidine Dehydrogenase (DPD) Gene Mutation Analysis -Miscellaneous Molecular Send-out Request Abbi Ventura MD Phone: tel: fax: Referral ID Status Reason Start Date Expiration Date Visits Re quested Visits Authorized [id number] Closed 04/23/2018 11/02/2019 1 1 Encounter Details Date Type Department Care Team (Latest Contact Info) Description 04/23/2018 7:45 AM SPRING ENCASER Clinical Support [facility] Oncology [address] [place] [address] Malignant neoplasm of descending colon (CMS/HCC) Social History Tobacco Use Types Packs/Day Years Used Date Smoking Tobacco: Former Cigarettes 2015 Smokeless Tobacco: Never Alcohol Use Standard Drinks/Week Comments Yes 0 (1 standard drink = 0.6 oz pur e alcohol) socially Comments No Sex and Gender Information Value Date Recorded Sex Assigned at Not on file Legal Sex Female 1:06 AM SPRING ENCASER Gender Identity Not on file Sexual Orientation Not on file documented as of this encounter Miscellaneous Notes * Addendum Note - Janette Taylor - 04/23/2018 7:45 AM CSTAddended by: JANETTE SOLORIO on: 04/23/2018 02:05 PM Modules accepted: Orders NG ENCASER documented in this encounter Plan of Treatment Not on file documented as of this encounter Procedures Procedure Name Priority Date/Time Associated Diagnosis Comments MISCELLANEOUS MOLECULAR SEND-OUT REQUEST Routine 04/23/2018 2:30 PM SPRING ENCASER Malignant neoplasm of descending colon (CMS/HCC) DIFFERENTIAL AUTO Routine 04/23/2018 8:1 0 AM SPRING ENCASER Malignant neoplasm of descending colon (CMS/HCC) CBC WITH AUTO DIFFERENTIAL Routine 04/23/2018 8:10 AM SPRING ENCASER Malignant neoplasm of descending colon (CMS/HCC) COMPREHENSIVE METABOLIC PANEL STAT 04/23/2018 8:10 AM SPRING ENCASER Malignant neoplasm of descending colon (CMS/HCC) documented in this encounter Results * Dihydropyrimidine Dehydrogenase (DPD) Gene Mutation Analysis -Miscellaneous Molecular Send-out Request (04/23/2018 2:30 PM SPRING ENCASER) Result 1 Test Name: DPYD Genotype Specimen Type: PB Supplemental Comments: _ Result: _ Units: _ Reference Range: _ Reference Lab: [facility] [address] [place] [address] Telephone: ?? [facility] Test name DPYD Genotype [facility] Blood specimen (specimen) 04/23/2018 2:30 PM SPRING ENCASER 04/24/2018 7:39 AM SPRING ENCASER Narrative [facility] - 05/01/2018 10:59 AM SPRING ENCASER 6ml EDTA tube--per Alverto mcintyre lab--send out to [facility] Test Requested:->Dihydropyrimidine Dehydrogenase (DPD) Gene Mutation Analysis Abbi Ventura MD LAB GENETIC TESTING Final Result [facility] Department [place] [address] * Differential, auto (04/23/2018 8:10 AM SPRING ENCASER) Neutrophil abs 1.8 1.7 - 6.5 K/cumm [facility] Imm gran abs 0.0 0.0 - 0.1 K/cumm [facility] Lymphocyte abs 1.2 0.8 - 3.3 K/cumm [facility] Monocyte abs 0.4 0.2 - 0.8 K/cumm [facility] Eosinophil abs 0.1 0.0 - 0.5 K/cumm [facility] Basophil abs 0.1 0.0 - 0.1 K/cumm [facility] Neutrophil pct 49.2 % [facility] Comment: Interpretive Data Percent cell count reference ranges are not reported, since discordance with absolute values may lead to misinterpretation of CBC data. Current Interpretive Data was last revised on 2017. Imm gran pct 0.6 % [facility] Comment: Interpretive Data Percent cell count reference ranges are not reported, since discordance with absolute values may lead to misinterpretation of CBC data. Current Interpretive Data was last revised on 2017. Lymphocyte pct 33.9 % [facility] Comment: Interpretive Data Percent cell count reference ranges are not reported, since discordance with absolute values may lead to misinterpretation of CBC data. Current Interpretive Data was last revised on 2017. Monocyte pct 11.5 % [facility] Comment: Interpretive Data Percent cell count reference ranges are not reported, since discordance with absolute values may lead to misinterpretation of CBC data. Current Interpretive Data was last revised on 2017. Eosinophil pct 3.1 % [facility] Comment: Interpretive Data Percent cell count reference ranges are not reported, since discordance with absolute values may lead to misinterpretation of CBC data. Current Interpretive Data was last revised on 2017. Basophil pct 1.7 % [facility] Comment: Interpretive Data Percent cell count reference ranges are not reported, since discordance with absolute values may lead to misinterpretation of CBC data. Current Interpretive Data was last revised on 2017. Blood specimen (specimen) 04/23/2018 8:10 AM SPRING ENCASER 04/23/2018 8:16 AM SPRING ENCASER Narrative [facility] - 04/23/2018 8:25 AM SPRING ENCASER us Abbi Ventura MD LAB BLOOD ORDERABLES Final Resul t [facility] Department [place] [address] * (ABNORMAL) Comprehensive metabolic panel (04/23/2018 8:10 AM SPRING ENCASER) Sodium 142 135 - 145 mmol/L [facility] Potassium, pl 4.0 3.3 - 4.9 mmol/L [facility] Chloride 107 97 - 110 mmol/L [facility] CO2 25 22 - 32 mmol/L [facility] Anion gap 10 2 - 15 mmol/L [facility] BUN 19 8 - 25 mg/dL [facility] Creatinine 1.15(H) 0.60 - 1.10 mg/dL [facility] Glucose 276(H) 70 - 199 mg/dL [facility] [...] 2017. Calcium 8.8 8.5 - 10.3 mg/dL [facility] Bilirubin, total 0.4 0.1 - 1.2 mg/dL [facility] Protein, pl 6.2(L) 6.5 - 8.5 g/dL [facility] Albumin 3.8 3.5 - 5.0 g/dL [facility] Alk phos 90 40 - 130 Units/L [facility] ALT 25 7 - 45 Units/L [facility] AST 28 10 - 45 Units/L [facility] Blood specimen (specimen) 04/23/2018 8:10 AM SPRING ENCASER 04/23/2018 8:16 AM SPRING ENCASER Narrative [facility] - 04/23/2018 9:34 AM SPRING ENCASER us Abbi Ventura MD LAB BLOOD ORDERABLES Final Resul t [facility] Department [place] [address] * (ABNORMAL) CBC with auto differential (04/23/2018 8:10 AM SPRING ENCASER) WBC 3.6(L) 3.8 - 9.9 K/cumm [facility] Hgb 9.8(L) 11.9 - 15.5 g/dL [facility] Hct 29.3(L) 35.6 - 45.5 % [facility] Plt 80(L) 150 - 400 K/cumm [facility] MPV 9.0(L) 9.1 - 12.3 fL [facility] RBC 3.08(L) 3.90 - 5.20 M/cumm [facility] MCV 95.1 81.3 - 96.4 fL [facility] MCH 31.8 27.1 - 33.3 pg [facility] MCHC 33.4 32.3 - 35.7 g/dL [facility] RDW CV 17.2(H) 11.1 - 14.9 % [facility] RDW SD 58.0(H) 35.7 - 48.1 fL [facility] NRBC abs 0.02(H) 0.00 - 0.01 K/cumm [facility] Blood specimen (specimen) 04/23/2018 8:10 AM SPRING ENCASER 04/23/2018 8:16 AM SPRING ENCASER Narrative [facility] - 04/23/2018 8:25 AM SPRING ENCASER us Abbi Ventura MD LAB BLOOD ORDERABLES Final Resul t [facility] Department [place] [address] documented in this encounter Visit Diagnoses Diagnosis 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
--- OUTSIDE RECORDS SUMMARY | 2024-04-24 15:00 | XMS_ITS | Encounter Summary ---
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) Procedures [id number]: (Fluorouracil / Leucovorin / Oxaliplatin) 14 Day Cycles Abbi Ventura MD [address] [place] [address] [address] [place] [address] Phone: tel: fax: [facility] Oncology [address] [place] [address] Phone: tel: Referral ID Status Reason Start Date Expiration Date Visits Re quested Visits Authorized [id number] Closed 01/31/2018 05/05/2019 1 18 Encounter Details Date Type Department Care Team (Late st Contact Info) Description 04/09/2018 11:15 AM STRAIGHT KNIFE MACHINE CUTTER Infusion [facility] Oncology [address] [place] [address] Malignant neoplasm of descending colon (CMS/HCC) (Primary [...] on file Legal Sex Female 1:06 AM STRAIGHT KNIFE MACHINE CUTTER Gender Identity Not on file Sexual Orientation Not on file documented as of this encounter Nursing Notes * Evon Taylor - 04/09/2018 11:15 AM CST Pt tolerated her treatment without any issues, no complaints of any side effects during treatment. Pt knows to go to ED if any issues after she leaves here. Her son is with her. Pt left ambulatory. IGHT KNIFE MACHINE CUTTER documented in this encounter Plan of [...] (CMS/HCC) (HCC) New Bag 04/09/2018 12:00 PM STRAIGHT KNIFE MACHINE CUTTER 10 mg 153 mL/hr dextrose 5% infusion 30 mL/hr, intravenous, Continuous, Starting on Sat04/09/18 at 1230, 30 mL/hr while oxaliplatin is infusing Flush line with 10 - 20 mL before and after oxaliplatin infusionIndications:Maligna nt neoplasm of descending colon (CMS/HCC) (HCC) New Bag 04/09/2018 12:00 PM STRAIGHT KNIFE MACHINE CUTTER 30 mL/hr 30 mL/hr fluorouracil (ADRUCIL) 5,550 mg in cadd cassette 111 mL infusion - for home infusion 5,550 mg (rounded from 5,568 mg = 2,400 mg/m2 ? 2.32 m2 Treatment Plan BSA from Recorded weight), intravenous, at 2.4 mL/hr, Administer over 46 Hours, over 46 hours, First dose on Sat04/09/18 at 1530, FOR PUMP PROBLEMS CALL [phone] IrritantIndications:Raheel russo neoplasm of descending colon (CMS/HCC) (HCC) Given 04/09/2018 3:57 PM STRAIGHT KNIFE MACHINE CUTTER 5,550 mg 2.4 mL/hr fluorouracil (ADRUCIL) IV syringe 925 mg 18.5 mL 925 mg (rounded from 928 mg = 400 mg/m2 ? 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 2.32 m2 Treatment Plan BSA from Recorded weight), intravenous, at 134.8 mL/hr, Administer over 2 Hours, Once, On Sat04/09/18 at 1230, For 1 dose, Irritant with vesicant potential. 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) New Bag 04/09/2018 1:40 PM STRAIGHT KNIFE MACHINE CUTTER 97.5 mg 134.8 mL/hr palonosetron injection 250 mcg 250 mcg (0.25 mg), intravenous, Once, On Sat04/09/18 at 1230, For 1 dose, For IV push, administer over 30 seconds.Indications:Maligna nt neoplasm of descending colon (CMS/HCC) (HCC) Given 04/09/2018 12:00 PM STRAIGHT KNIFE MACHINE CUTTER 250 mcg sodium chloride 0.9% bolus 1,000 mL 1,000 mL, intravenous, at 666.7 mL/hr, Administer over 90 Minutes, Once, On Sat04/09/18 at 1245, For 1 dose, Please check orthostatic b/p pre and post infusion.Indications:Dehydr ation,Malignant neoplasm of descending colon (CMS/HCC) (HCC),Malignant neoplasm of upper-inner quadrant of left breast in female, estrogen receptor negative (HCC) New Bag 04/09/2018 12:00 PM STRAIGHT KNIFE MACHINE CUTTER 1,000 mL 666.7 mL/hr documented in [...] 04/09/2018 documented in this encounter Care Teams Horses Or Mules Teamster Relationship Specialty Start Date End Date Ravi Smith MD PCP - General 11/04/17 09/27/21 Aft, Kianna Machado MD PhD [address] [place] [address] Surgeon Surgical Oncology 11/22/17 Santiago Gilbert MD [address] [place] [address] Area Development Consultant Gastroenterology 11/22/17 documented as of this encounter
--- OUTSIDE RECORDS SUMMARY | 2024-04-24 15:00 | XMS_ITS | Encounter Summary ---
Author Organization [facility] Address [address] [place] [address] Phone Care Team Providers Care Brand Specialist Name Role Phone Ravi Smith MD Primary Care Provider [phone] Aft, Kianna Machado MD PhD Unavailable [phone] Santiago Gilbert MD Unavailable [phone] Encounter Details Date Type Department Care Team (Late st Contact Info) Description 03/25/2018 Orders Only [facility] Oncology [address] [place] [address] Abbi Ventura MD [address] [facility] [address] [place] [address] Hypokalemia (Primary Dx) Social History Tobacco Use Types Packs/Day Years Used Date Smoking Tobacco: Former Cigarettes 2015 Smokeless Tobacco: Never Alcohol Use Standard Drinks/Week Comments Yes 0 (1 standard drink = 0.6 oz pur e alcohol) socially Comments No Sex and Gender Information Value Date Recorded Sex Assigned at Not on file Legal Sex Female 1:06 AM DIET CLERK Gender Identity Not on file Sexual [...] Hypopotassemia documented in this encounter Care Teams Brand Specialist Relationship Specialty Start Date End Date Ravi Smith MD PCP - General 11/04/17 09/27/21 Aft, Kianna Machado MD PhD [address] [place] [address] Surgeon Surgical Oncology 11/22/17 Santiago Gilbert MD [address] [place] [address] Photogrammetric Compilation Specialist Gastroenterology 11/22/17 documented as of this encounter
--- OUTSIDE RECORDS SUMMARY | 2024-04-24 15:00 | XMS_ITS | Encounter Summary ---
Author Organization [facility] Address [address] [place] [address] Phone Care Team Providers Care Reservationist Name Role Phone Ravi Smith MD Primary Care Provider [phone] Aft, Kianna Machado MD PhD Unavailable [phone] Santiago Gilbert MD Unavailable [phone] Reason for Visit * Reason Comments OP Infusion IVF Encounter Details Date Type Department Care Team (Late st Contact Info) Description 05/01/2018 2:00 PM INTERSTATE BUS DISPATCHER Infusion [facility] Oncology [address] [place] [address] Malignant neoplasm of descending colon (CMS/HCC) (Primary [...] on file Legal Sex Female 1:06 AM INTERSTATE BUS DISPATCHER Gender Identity Not on file Sexual Orientation Not on file documented as of this encounter Last Filed Vital Signs Vital Sign Reading Time Taken Comments Blood Pressure 164/80 05/01/2018 1:49 PM INTERSTATE BUS DISPATCHER Pulse 129 05/01/2018 1:49 PM INTERSTATE BUS DISPATCHER Temperature 36.7 ??C (98.1 ??F) 05/01/2018 1:49 PM CS T Respiratory Rate 18 05/01/2018 1:49 PM INTERSTATE BUS DISPATCHER Oxygen Saturation 95% 05/01/2018 1:49 PM INTERSTATE BUS DISPATCHER Inhaled Oxygen Concentration - - Weight 103.6 kg (228 lb 4.8 oz) 05/01/2018 1:49 PM INTERSTATE BUS DISPATCHER Height - - Body Mass Index 34.71 04/23/2018 8:26 AM INTERSTATE BUS DISPATCHER documented in this encounter Nursing Notes * Xiomara Leary, LYDIA - 05/01/2018 2:00 PM CST Pt here for IVF. Pt reports feeling blah lately. Took one nausea pill today but no other complaints. Pt hoping fluids help her feel better. Port accessed without incident. IVF infusing at this time. Report given to Suzanne Parker RSTATE BUS DISPATCHER * Suzanne Calderón RN - 05/01/2018 2:00 PM CST Patient tolerated 1L NS well today. Pt states she felt better after NS and her color looks better. Port was flushed and hep locked, needle de accessed and gauze band aid over site. Patient dischargedstable. RSTATE BUS DISPATCHER documented in this encounter Plan of Treatment [...] Indwelling Vascular Catheter Given 05/01/2018 3:48 PM INTERSTATE BUS DISPATCHER 500 Units sodium chloride 0.9% bolus 1,000 mL 1,000 mL, intravenous, at 666.7 mL/hr, Administer over 90 Minutes, Once, On Bonnie 05/01/18 at 1430, For 1 doseIndications:Dehydratio n,Malignant neoplasm of descending colon (CMS/HCC) (HCC),Malignant neoplasm of upper-inner quadrant of left breast in female, estrogen receptor negative (HCC) New Bag 05/01/2018 2:15 PM INTERSTATE BUS DISPATCHER 1,000 mL 666.7 mL/hr documented in this encounter Orders Medications Ordered That [place] ht Not Have Been Administered Count Last Ordered Date First Ordered Date sodium chloride 0.9% flush 10 mL 1 05/01/20 18 Appointment Requests Count Last Ordered Date Fi rst Ordered Date ONCBCN INFUSION APPT REQUEST 1 05/01/2018 documented in this encounter Care Teams Reservationist Relationship Specialty Start Date End Date Ravi Smith MD PCP - General 11/04/17 09/27/21 Aft, Kianna Machado MD PhD [address] [place] [address] Surgeon Surgical Oncology 11/22/17 Santiago Gilbert MD [address] [place] [address] Rent Collector Gastroenterology 11/22/17 documented as of this encounter
--- OUTSIDE RECORDS SUMMARY | 2024-04-24 15:00 | XMS_ITS | Encounter Summary ---
Author Organization [facility] Address [address] [place] [address] Phone Care Team Providers Care Typesetting Machine Operator/Tender Name Role Phone Ravi Smith MD Primary Care Provider [phone] Aft, Kianna Machado MD PhD Unavailable Santiago Gilbert MD Unavailable [phone] Encounter Details Date Type Department Care Team (Late st Contact Info) Description 04/17/[address] [facility] [address] [place] [id number] Fatemeh Zarate, RN Social History Tobacco Use Types Packs/Day Years Used Date Smoking Tobacco: Former Cigarettes 2015 Smokeless Tobacco: Never Alcohol Use Standard Drinks/Week Comments Yes 0 (1 standard drink = 0.6 oz pur e alcohol) socially Comments No Sex and Gender Information Value Date Recorded Sex Assigned at Not on file Legal Sex Female 1:06 AM AEROPHYSICIST Gender Identity Not on file Sexual Orientation Not on file documented as of this encounter Miscellaneous Notes * Telephone Encounter - Fatemeh Zarate RN - 04/17/2018 4:11 PM CST ----- Message from Rosalba Jones RN sent at 04/17/2018 8:25 AM AEROPHYSICIST ----- Regarding: FW: Non-Urgent Medical Question Contact: [...] me if no improvement of symptoms. DB PHYSICIST PHYSICIST documented in this encounter Plan of Treatment Not on file documented as of this encounter Visit Diagnoses Not on filedocumented in this encounter Care Teams Typesetting Machine Operator/Tender Relationship Specialty Start Date End Date Ravi Smith MD PCP - General 11/04/17 09/27/21 Aft, Kianna Machado MD PhD [address] [place] [address] Surgeon Surgical Oncology 11/22/17 Santiago Gilbert MD [address] [place] [address] Embroidery Designer Gastroenterology 11/22/17 documented as of this encounter
--- OUTSIDE RECORDS SUMMARY | 2024-04-24 15:00 | XMS_ITS | Encounter Summary ---
Author Organization 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) Procedures [id number]: (Fluorouracil / Leucovorin / Oxaliplatin) 14 Day Cycles Abbi Ventura MD [address] [place] [address] [address] [place] [address] Phone: tel: fax: [facility] [address] [place] [address] Phone: tel: Referral ID Status Reason Start Date Expiration Date Visits Re quested Visits Authorized [id number] Closed 01/31/2018 05/05/2019 1 18 Encounter Details Date Type Department Care Team (Late st Contact Info) Description 04/23/2018 9:15 AM TOOL ENGINE LATHE SET UP OPERATOR Infusion [facility] [address] [place] [address] Malignant neoplasm of descending colon (CMS/HCC) (Primary [...] file Legal Sex Female 1:06 AM TOOL ENGINE LATHE SET UP OPERATOR Gender Identity Not on [...] ER. Pt to slef-disconnect in 46 hours. ENGINE LATHE SET UP OPERATOR documented in this encounter Plan of [...] (CMS/HCC) (HCC) New Bag 04/23/2018 9:29 AM TOOL ENGINE LATHE SET UP OPERATOR 10 mg 153 mL/hr dextrose 5% infusion 30 mL/hr, intravenous, Continuous, Starting on Sat04/23/18 at 1000, 30 mL/hr while oxaliplatin is infusing Flush line with 10 - 20 mL before and after oxaliplatin infusionIndications:Malignant neoplasm of descending colon (CMS/HCC) (HCC) New Bag 04/23/2018 9:29 AM TOOL ENGINE LATHE SET UP OPERATOR 30 mL/hr 30 mL/hr diphenhydrAMINE (BENADRYL) injection 25 mg 25 mg, intravenous, Administer over 2 Minutes, Every 15 min PRN, Mild Hypersensitivity reaction. May repeat x1 if symptoms not relieved in 15 minutes. No more than 2 doses., Starting on Sat04/23/18 at 1330, For 24 hoursIndications:Malignant neoplasm of descending colon (CMS/HCC) (HCC) Given 04/23/2018 1:45 PM TOOL ENGINE LATHE SET UP OPERATOR 25 mg Given 04/23/2018 1:31 PM TOOL ENGINE LATHE SET UP OPERATOR 25 mg fluorouracil (ADRUCIL) 4,200 mg in cadd cassette 84 mL infusion - for home infusion 4,200 mg (rounded from 4,176 mg = 1,800 mg/m2 ? 2.32 m2 Treatment Plan BSA from Recorded weight), intravenous, at 1.8 mL/hr, Administer over 46 Hours, over 46 hours, First dose on Sat04/23/18 at 1300, FOR PUMP PROBLEMS CALL [phone] IrritantIndications:Malignant neoplasm of descending colon (CMS/HCC) (HCC) Given 04/23/2018 2:28 PM TOOL ENGINE LATHE SET UP OPERATOR 4,200 mg 1.8 mL/hr fluorouracil (ADRUCIL) IV syringe 700 mg 14 mL 700 mg (rounded from 696 mg = 300 mg/m2 ? 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) New Bag 04/23/2018 2:22 PM TOOL ENGINE LATHE SET UP OPERATOR 700 mg fosaprepitant (EMEND) 150 mg in sodium chloride 0.9% 150 mL IVPB 150 mg, intravenous, at 450 mL/hr, Administer over 20 Minutes, Once, On Sat04/23/18 at 1000, For 1 doseIndications:Malignant neoplasm of descending colon (CMS/HCC) (HCC) New Bag 04/23/2018 9:51 AM TOOL ENGINE LATHE SET UP OPERATOR 150 mg 450 mL/hr hydrocortisone (Solu-CORTEF) preservative free injection 100 mg 100 mg, intravenous, Once as needed, Severe / Moderate Hypersensitivity Reaction, Starting on Sat04/23/18 at 1407, For 24 hours, For adults rapid IV push administer over 30 secondsIndications:Malignant neoplasm of descending colon (CMS/HCC) (HCC) Given 04/23/2018 2:07 PM TOOL ENGINE LATHE SET UP OPERATOR 100 mg leucovorin 700 mg in dextrose [...] (CMS/HCC) (HCC) New Bag 04/23/2018 11:13 AM TOOL ENGINE LATHE SET UP OPERATOR 700 mg 132 mL/hr oxaliplatin (ELOXATIN) 97.5 mg in dextrose 5% 250 mL IVPB 97.5 mg (rounded from 97.44 mg = 42 mg/m2 ? 2.32 m2 Treatment Plan BSA from Recorded weight), intravenous, at 134.8 mL/hr, Administer over 2 Hours, Once, On Sat04/23/18 at 1000, For 1 dose, Irritant with vesicant potential. Flush line with [id number]:Malignant neoplasm of descending colon (CMS/HCC) (HCC) New Bag 04/23/2018 11:11 AM TOOL ENGINE LATHE SET UP OPERATOR 97.5 mg 134.8 mL/hr palonosetron injection 250 mcg 250 mcg (0.25 mg), intravenous, Once, On Sat04/23/18 at 1000, For 1 dose, For IV push, administer over 30 seconds.Indications:Malignant neoplasm of descending colon (CMS/HCC) (HCC) Given 04/23/2018 9:29 AM TOOL ENGINE LATHE SET UP OPERATOR 250 mcg documented in this encounter Orders [...] 04/23/2018 documented in this encounter Care Teams Drywall Contractor Relationship Specialty Start Date End Date Ravi Smith MD PCP - General 11/04/17 09/27/21 Aft, Kianna Machado MD PhD [address] [place] [address] Surgeon Surgical Oncology 11/22/17 Santiago Gilbert MD [address] [place] [address] Plate Setter Gastroenterology 11/22/17 documented as of this encounter
--- OUTSIDE RECORDS SUMMARY | 2024-04-24 15:00 | XMS_ITS | Encounter Summary ---
Author Organization [facility] Address [address] [place] [address] Phone Care Team Providers Care Building Consultant Name Role Phone Ravi Smith MD Primary Care Provider [phone] Aft, Kianna Machado MD PhD Unavailable [phone] Santiago Gilbert MD Unavailable [phone] Encounter Details Date Type Department Care Team (Late st Contact Info) Description 03/26/2018 Telephone [facility] [address] [place] [id number] Fatemeh Zarate, RN Social History Tobacco Use Types Packs/Day Years Used Date Smoking Tobacco: Former Cigarettes 2015 Smokeless Tobacco: Never Alcohol Use Standard Drinks/Week Comments Yes 0 (1 standard drink = 0.6 oz pur e alcohol) socially Comments No Sex and Gender Information Value Date Recorded Sex Assigned at Not on file Legal Sex Female 1:06 AM JEWELRY REPAIRER Gender Identity Not on file Sexual Orientation Not on file documented as of this encounter Miscellaneous Notes * Telephone Encounter - Fatemeh Zarate RN - 03/26/2018 9:24 AM CST error LRY REPAIRER documented in this encounter Plan of Treatment Not on file documented as of this encounter Visit Diagnoses Not on filedocumented in this encounter Care Teams Building Consultant Relationship Specialty Start Date End Date Ravi Smith MD PCP - General 11/04/17 09/27/21 Aft, Kianna Machado MD PhD [address] [place], [place] [id number] Surgeon Surgical Oncology 11/22/17 Santiago Gilbert MD [address] [place] [address] Driver Manager Gastroenterology 11/22/17 documented as of this encounter
--- OUTSIDE RECORDS SUMMARY | 2024-04-24 15:00 | XMS_ITS | Encounter Summary ---
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 Referral ID Status Reason Start Date Expiration Date Visits Re quested Visits Authorized [id number] Closed 04/11/2018 10/21/2019 1 1 Encounter Details Date Type Department Care Team (Late st Contact Info) Description 04/11/2018 10:34 AM TANKAGE GRINDER - 04/11/2018 12:52 PM TANKAGE GRINDER Hospital Encounter [facility] Radiology at [facility] Medicine [address] [place] [address] Abbi Ventura MD [address] [facility] [address] [place] [address] Alex Arthur MD [address] [facility] [address] [place] [address] Malignant neoplasm of descending colon (CMS/HCC); Malignant [...] on file Legal Sex Female 1:06 AM TANKAGE GRINDER Gender Identity Not on file Sexual Orientation Not on file documented as of this encounter Last Filed Vital Signs Vital Sign Reading Time Taken Comments Blood Pressure 162/83 04/11/2018 11:36 AM TANKAGE GRINDER Pulse 79 04/11/2018 11:36 AM TANKAGE GRINDER Temperature 36.5 ??C (97.7 ??F) 04/11/2018 11:[address] Respiratory Rate 16 04/11/2018 11:36 AM TANKAGE GRINDER Oxygen Saturation 98% 04/11/2018 11:36 AM TANKAGE GRINDER Inhaled Oxygen Concentration - - Weight - - Height - - Body Mass Index - - documented in this encounter Discharge Instructions * Discharge Instructions* Alex Arthur MD - 04/25/2018 12:50 PM TANKAGE GRINDER Interventional Radiology Outpatient Discharge Instructions/Note Diagnosis Port [...] draining. To contact an Interventional Radiologist call [phone] Saturday through Saturday from 7:30am-4:30pm. At all other times call [phone] and ask that the Interventional Radiologist be [...] at Please come to: [] 3rd Floor [facility] [] 4th floor [facility] [] [facility] [] [facility] Please call [phone] to schedule a follow up appointment. You need to return in AGE GRINDER documented in this encounter Medications at Time [...] Tiffany Wiley RN - 04/11/2018 12:48 PM TANKAGE GRINDER Alteplase given per order. Dwell time 30min and port eval done per Dr. Arthur. Okay'd for further us. Dc'd to [facility] for infusion. 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 Port fully functional following this and the patient was reconnected to her pump without issue. Electronically signed by: Alex Arthur M.D. Narrative 04/11/2018 3:09 PM TANKAGE GRINDER EXAMINATION: ??INTERVENTIONAL RADIOLOGY FOLLOW-UP VISIT REFERRAL: ??Dr. BABI VENTURA has referred this patient for port [...] CannulaIndications:Occluded Arteriovenous Cannula Given 04/11/2018 12:10 PM TANKAGE GRINDER 2 mg documented in this encounter Active and Recently Administered Medications Times are shown in TANKAGE GRINDER. Scheduled Medication Order 04/09/2018 04/10/2018 04/11/2018 alteplase [...] 04/11/2018 documented in this encounter Care Teams Gold Buyer Relationship Specialty Start Date End Date Ravi Smith MD PCP - General 11/04/17 09/27/21 Aft, Kianna Machado MD PhD [address] [place] [address] Surgeon Surgical Oncology 11/22/17 Santiago Gilbert MD [address] [place] [address] Flight Line Mechanic Gastroenterology 11/22/17 documented as of this encounter
--- OUTSIDE RECORDS SUMMARY | 2024-04-24 15:00 | XMS_ITS | Encounter Summary ---
Author Organization [facility] Address [address] [place] [address] Phone Care Team Providers Care Software Engineer Backend Name Role Phone Ravi Smith MD Primary Care Provider [phone] Aft, Kianna Machado MD PhD Unavailable [phone] Santiago Gilbert MD Unavailable Encounter Details Date Type Department Care Team (Late st Contact Info) Description 04/11/2018 1:00 PM HYPERCIL CORE TRANSFORMER ASSEMBLER Infusion [facility] [address] [place] [phone] 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) Social History Tobacco Use Types Packs/Day Years Used Date Smoking Tobacco: Former Cigarettes 2015 Smokeless Tobacco: Never Alcohol Use Standard Drinks/Week Comments Yes 0 (1 standard drink = 0.6 oz pur e alcohol) socially Comments No Sex and Gender Information Value Date Recorded Sex Assigned at Not on file Legal Sex Female 1:06 AM HYPERCIL CORE TRANSFORMER ASSEMBLER Gender Identity Not on file Sexual Orientation Not on file documented as of this encounter Last Filed Vital Signs Vital Sign Reading Time Taken Comments Blood Pressure 157/77 04/11/2018 1:03 PM HYPERCIL CORE TRANSFORMER ASSEMBLER Pulse 99 04/11/2018 1:03 PM HYPERCIL CORE TRANSFORMER ASSEMBLER Temperature - - Respiratory Rate 18 04/11/2018 1:03 PM HYPERCIL CORE TRANSFORMER ASSEMBLER Oxygen Saturation 95% 04/11/2018 1:03 PM HYPERCIL CORE TRANSFORMER ASSEMBLER Inhaled Oxygen Concentration - - Weight 108.4 kg (238 lb 14.4 oz) 04/11/2018 1:03 PM HYPERCIL CORE TRANSFORMER ASSEMBLER Height - - Body Mass Index 36.32 04/09/2018 10:27 AM HYPERCIL CORE TRANSFORMER ASSEMBLER documented in this encounter Nursing Notes * Rhoda Jo - 04/11/2018 1:00 PM CST Patient came in to be hooked up her 5FU after IR evaluation. Great blood return. Patient rehooked up to pump at a rate of 2.4 ml per hour. Patient stayed for about 5 minutes. No issues with pump. Patient has no concerns or problems at this time. 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
--- OUTSIDE RECORDS SUMMARY | 2024-04-24 15:00 | XMS_ITS | Encounter Summary ---
Author Organization [facility] Address [address] [place] [address] Phone Care Team Providers Care Circular Shear Operator Name Role Phone Ravi Smith MD Primary Care Provider [phone] Aft, Kianna Machado MD PhD Unavailable [phone] Santiago Gilbert MD Unavailable [phone] Encounter Details Date Type Department Care Team (Late st Contact Info) Description 03/25/2018 Orders Only [facility] Oncology [address] [place] [address] Abbi Ventura MD [address] [facility] [address] [place] [address] Social History Tobacco Use Types Packs/Day Years Used Date Smoking Tobacco: Former Cigarettes 2015 Smokeless Tobacco: Never Alcohol Use Standard Drinks/Week Comments Yes 0 (1 standard drink = 0.6 oz pur e alcohol) socially Comments No Sex and Gender Information Value Date Recorded Sex Assigned at Not on file Legal Sex Female 1:06 AM STRADDLE BUG DRIVER Gender Identity Not on file Sexual Orientation Not on file documented as of this encounter Plan of Treatment Not on file documented as of this encounter Visit Diagnoses Not on filedocumented in this encounter Care Teams Circular Shear Operator Relationship Specialty Start Date End Date Ravi Smith MD PCP - General 11/04/17 09/27/21 Aft, Kianna Machado MD PhD [address] [place] [address] Surgeon Surgical Oncology 11/22/17 Santiago Gilbert MD [address] [place] [address] Crotch Piece Baster Gastroenterology 11/22/17 documented as of this encounter
--- OUTSIDE RECORDS SUMMARY | 2024-04-24 15:00 | XMS_ITS | Encounter Summary ---
Author Organization [facility] Address [address] [place] [address] Phone Care Team Providers Care Supervisor Metal Fabricating Name Role Phone Ravi Smith MD Primary Care Provider [phone] Aft, Kianna Machado MD PhD Unavailable [phone] Santiago Gilbert MD Unavailable [phone] Encounter Details Date Type Department Care Team (Late st Contact Info) Description 03/21/2018 4:45 PM BORING MILL SET UP OPERATOR Lab [facility] Oncology [address] [place] [address] Diarrhea, unspecified type Social History Tobacco Use Types Packs/Day Years Used Date Smoking Tobacco: Former Cigarettes 2015 Smokeless Tobacco: Never Alcohol Use Standard Drinks/Week Comments Yes 0 (1 standard drink = 0.6 oz pur e alcohol) socially Comments No Sex and Gender Information Value Date Recorded Sex Assigned at Not on file Legal Sex Female 1:06 AM BORING MILL SET UP OPERATOR Gender Identity Not on file Sexual Orientation Not on file documented as of this encounter Plan of Treatment Not on file documented as of this encounter Procedures Procedure Name Priority Date/Time Associated Diagnosis Comments CLOSTRIDIUM DIFFICILE ASSAY Routine 03/21/2018 11:00 AM BORING MILL SET UP OPERATOR Diarrhea, unspecified type STOOL CULTURE Routine 03/21/2018 11:00 AM BORING MILL SET UP OPERATOR Diarrhea, unspecified type documented in this encounter Results * Clostridium difficile assay Stool (03/21/2018 11:00 AM BORING MILL SET UP OPERATOR) Report Final Report: Negative for: Clostridium difficile toxin. [facility] Stool 03/21/2018 11:0 0 AM BORING MILL SET UP OPERATOR 03/21/2018 4:44 PM BORING MILL SET UP OPERATOR Narrative [facility] - 03/22/2018 5:27 AM BORING MILL SET UP OPERATOR Abbi Ventura MD LAB MICROBIOLOGY - GENERAL ORDER YFN Final Result Performing Organization Address [facility] Co de Phone Number [facility] [place] [address] * Stool culture Stool (03/21/2018 11:00 AM BORING MILL SET UP OPERATOR) Direct Specimen Exam Shiga Toxin Testing: Antigen detection assay for Shiga-toxin NEGATIVE for Shiga Toxin 1 and Shiga Toxin 2. [facility] Report Final Report: No growth of enteric bacterial pathogens [facility] Stool 03/21/2018 11:0 0 AM BORING MILL SET UP OPERATOR 03/21/2018 4:44 PM BORING MILL SET UP OPERATOR Narrative [facility] - 03/24/2018 10:23 AM BORING MILL SET UP OPERATOR Specimen was received in a sahara Segun transport tube. Testing performed by [facility] ([phone]). Routine stool cultures include procedures to detect Salmonella, Shigella, Edwardsiella, Aeromonas, Pleisiomonas, Campylobacter, Yersinia, E. coli O157, and Shiga-like toxins. ?? Vibrio is cultured only upon special request. ??If Vibrio is suspected, please call the laboratory at [phone]. Interpretive data was last updated September 10, 2016. Abbi Ventura MD LAB MICROBIOLOGY - GENERAL ORDER YFN Final Result Performing Organization Address [facility] Co de Phone Number [facility] [place] [address] documented in this encounter Visit Diagnoses Diagnosis Diarrhea, unspecified type documented in this encounter Care Teams Supervisor Metal Fabricating Relationship Specialty Start Date End Date Ravi Smith MD PCP - General 11/04/17 09/27/21 Aft, Kianna Machado MD PhD [address] [place] [address] Surgeon Surgical Oncology 11/22/17 Santiago Gilbert MD [address] [place] [address] Mirror Specialist Gastroenterology 11/22/17 documented as of this encounter
--- OUTSIDE RECORDS SUMMARY | 2024-04-24 15:00 | XMS_ITS | Encounter Summary ---
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) Procedures Dihydropyrimidine Dehydrogenase (DPD) Gene Mutation Analysis -Miscellaneous Molecular Send-out Request Abbi Ventura MD Phone: tel: fax: Referral ID Status Reason Start Date Expiration Date Visits Re quested Visits Authorized [id number] Closed 04/23/2018 11/02/2019 1 1 MUTUEL TICKET CASHIER Reason for Visit * Episode Based Medications (Routine) - Closed Specialty Diagnoses / Procedures Referred By Contac t Referred To Contact Diagnoses 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) Procedures mFOLFOX6: (Fluorouracil / Leucovorin / Oxaliplatin) 14 Day Cycles Abbi Ventura MD [address] [facility] [address] [place] [address] Phone: tel: fax: [facility] [address] [facility] [place] [address] Phone: tel: Referral ID Status Reason Start Date Expiration Date Visits Re quested Visits Authorized [id number] Closed 01/31/2018 05/05/2019 1 18 Encounter Details Date Type Department Care Team (Late st Contact Info) Description 04/23/2018 8:15 AM PARIMUTUEL TICKET CASHIER Office Visit [facility] [address] [place] [address] Abbi Ventura MD [address] [facility] [address] [place] [address] 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) Social History Tobacco Use Types Packs/Day Years Used Date Smoking Tobacco: Former Cigarettes 2015 Smokeless Tobacco: Never Alcohol Use Standard Drinks/Week Comments Yes 0 (1 standard drink = 0.6 oz pur e alcohol) socially Comments No Sex and Gender Information Value Date Recorded Sex Assigned at Not on file Legal Sex Female 1:06 AM PARIMUTUEL TICKET CASHIER Gender Identity Not on file Sexual Orientation Not on file documented as of this encounter Last Filed Vital Signs Vital Sign Reading Time Taken Comments Blood Pressure 155/87 04/23/2018 8:26 AM PARIMUTUEL TICKET CASHIER Pulse 130 04/23/2018 8:26 AM PARIMUTUEL TICKET CASHIER Temperature 36.6 ??C (97.9 ??F) 04/23/2018 8:26 AM CS T Respiratory Rate 18 04/23/2018 8:26 AM PARIMUTUEL TICKET CASHIER Oxygen Saturation 96% 04/23/2018 8:26 AM PARIMUTUEL TICKET CASHIER Inhaled Oxygen Concentration - - Weight 107.7 kg (237 lb 8 oz) 04/23/2018 8:26 AM PARIMUTUEL TICKET CASHIER Height 172.7 cm (5' 8 ) 04/23/2018 8:26 AM PARIMUTUEL TICKET CASHIER Body Mass Index 36.11 04/23/2018 8:26 AM PARIMUTUEL TICKET CASHIER documented in this encounter Progress Notes * Abbi Ventura MD - 04/23/2018 8:15 AM CST Patient Identifying Data: Aleah Gerbre is a 62 y.o. 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 [facility] panel is positive for BRCA2 [...] 2, Pepcid, and solucortef. Abbi Ventura MD Health Safety Specialistmarine structural welder Division of Oncology Section of Medical Oncology [facility] Power Barker Operator completed by using M*Modal Fluency Direct speaking software, therefore, transcriptionvariances may occur. MUTUEL TICKET CASHIER documented in this encounter Plan of Treatment Not on file documented as of this encounter Results * (ABNORMAL) Comprehensive metabolic panel (05/07/2018 9:30 AM PARIMUTUEL TICKET CASHIER) Sodium 142 135 - 145 mmol/L [facility] Potassium, pl 3.3 3.3 - 4.9 mmol/L [facility] Chloride 107 97 - 110 mmol/L [facility] CO2 23 22 - 32 mmol/L [facility] Anion gap 12 2 - 15 mmol/L [facility] BUN 20 8 - 25 mg/dL [facility] Creatinine 0.82 0.60 - 1.10 mg/dL [facility] Glucose 260(H) 70 - 199 mg/dL [facility] [...] 2017. Calcium 9.3 8.5 - 10.3 mg/dL [facility] Bilirubin, total 0.4 0.1 - 1.2 mg/dL [facility] Protein, pl 6.1(L) 6.5 - 8.5 g/dL [facility] Albumin 3.7 3.5 - 5.0 g/dL [facility] Alk phos 91 40 - 130 Units/L [facility] ALT 38 7 - 45 Units/L [facility] AST 47(H) 10 - 45 Units/L [facility] Blood specimen (specimen) 05/07/2018 9:30 AM PARIMUTUEL TICKET CASHIER 05/07/2018 9:41 AM PARIMUTUEL TICKET CASHIER Narrative [facility] - 05/07/2018 10:14 AM PARIMUTUEL TICKET CASHIER us Abbi Ventura MD LAB BLOOD ORDERABLES Final Resul t Performing Organization Address [facility] de Phone Number [facility] [place] [address] * CEA (05/07/2018 9:30 AM PARIMUTUEL TICKET CASHIER) [facility] CEA 5.0 0.0 - 5.0 ng/mL [facility] Comment: Interpretative Data: Reference Range: Non-Smokers: 0.0 - 5.0 ng/mL Smokers: 0.0 ? 6.5 ng/mL This test was developed and its performance characteristics determined by the [facility] in a manner consistent with CLIA requirements. This test has not been cleared or approved by the U.S. Food and Drug Administration. Current interpretive data was last revised 2018. Blood specimen (specimen) 05/07/2018 9:30 AM PARIMUTUEL TICKET CASHIER 05/07/2018 10:32 AM PARIMUTUEL TICKET CASHIER Narrative [facility] - 05/07/2018 11:11 AM PARIMUTUEL TICKET CASHIER Abbi Ventura MD LAB BLOOD ORDERABLES Final Resul t Performing Organization Address [facility] de Phone Number [facility] Department [place] [address] * (ABNORMAL) CBC with auto differential (05/07/2018 9:30 AM PARIMUTUEL TICKET CASHIER) [facility] WBC 3.3(L) 3.8 - 9.9 K/cumm [facility] Hgb 9.6(L) 11.9 - 15.5 g/dL [facility] Hct 27.9(L) 35.6 - 45.5 % [facility] Plt 84(L) 150 - 400 K/cumm [facility] MPV 9.7 9.1 - 12.3 fL [facility] RBC 2.87(L) 3.90 - 5.20 M/cumm [facility] MCV 97.2(H) 81.3 - 96.4 fL [facility] MCH 33.4(H) 27.1 - 33.3 pg [facility] MCHC 34.4 32.3 - 35.7 g/dL [facility] RDW CV 19.1(H) 11.1 - 14.9 % [facility] RDW SD 63.7(H) 35.7 - 48.1 fL [facility] NRBC abs 0.08(H) 0.00 - 0.01 K/cumm [facility] Blood specimen (specimen) 05/07/2018 9:30 AM PARIMUTUEL TICKET CASHIER 05/07/2018 9:41 AM PARIMUTUEL TICKET CASHIER Narrative [facility] - 05/07/2018 9:46 AM PARIMUTUEL TICKET CASHIER Abbi Ventura MD LAB BLOOD ORDERABLES Final Resul t [facility] [place] [address] * Dihydropyrimidine Dehydrogenase (DPD) Gene Mutation Analysis -Miscellaneous Molecular Send-out Request (04/23/2018 2:30 PM PARIMUTUEL TICKET CASHIER) Result 1 Test Name: DPYD Genotype Specimen Type: PB Supplemental Comments: _ Result: _ Units: _ Reference Range: _ Reference Lab: [facility] [address] [place] [address] Telephone: ?? [facility] Test name DPYD Genotype [facility] Blood specimen (specimen) 04/23/2018 2:30 PM PARIMUTUEL TICKET CASHIER 04/24/2018 7:39 AM PARIMUTUEL TICKET CASHIER Narrative [facility] - 05/01/2018 10:59 AM PARIMUTUEL TICKET CASHIER 6ml EDTA tube--per [facility]cinty[facility] lab--send out to [facility] Test Requested:->Dihydropyrimidine Dehydrogenase (DPD) Gene Mutation Analysis Abbi Ventura MD LAB GENETIC TESTING Final Result Performing Organization Address City/[facility]/ZIP Co de Phone Number [facility] Department [place] [address] documented in this encounter Visit Diagnoses Diagnosis [...] 05/01/2018 documented in this encounter Care Teams Check Processing Clerk Relationship Specialty Start Date End Date Ravi Smith MD PCP - General 11/04/17 09/27/21 Aft, Kianna Machado MD PhD [address] [place] [address] Surgeon Surgical Oncology 11/22/17 Santiago Gilbert MD [address] [place] [address] Sock Examiner Gastroenterology 11/22/17 documented as of this encounter
--- OUTSIDE RECORDS SUMMARY | 2024-04-24 15:00 | XMS_ITS | Encounter Summary ---
Author Organization 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 (All Locations) Referral ID Status Reason Start Date Expiration Date Visits Re quested Visits Authorized [id number] Closed 04/10/2018 10/20/2019 1 1 HING FOREMAN Encounter Details Date Type Department Care Team (Late st Contact Info) Description 04/10/2018 Orders Only [facility] Oncology [address] [place] [address] Abbi Ventura MD [address] [place] [address] [address] [place] [address] Malignant neoplasm of descending colon (CMS/HCC) (Primary [...] on file Legal Sex Female 1:06 AM CRUSHING FOREMAN Gender Identity Not on file Sexual [...] estrogen receptor negative (CMS/HCC) 04/10/2018 4:17 PM CRUSHING FOREMAN Scheduled Orders Name Type Priority Associated Diagnoses [...] (HCC) documented in this encounter Care Teams Clip Coater Relationship Specialty Start Date End Date Ravi Smith MD PCP - General 11/04/17 09/27/21 Aft, Kianna Machado MD PhD [address] [place] [address] Surgeon Surgical Oncology 11/22/17 Santiago Gilbert MD [address] [place] [address] Airport Ramp Supervisor Gastroenterology 11/22/17 documented as of this encounter
--- OUTSIDE RECORDS SUMMARY | 2024-04-24 15:00 | XMS_ITS | Encounter Summary ---
Author Organization [facility] Address [address] [place] [address] Phone Care Team Providers Care Floors Buffer Name Role Phone Ravi Smith MD Primary Care Provider [phone] Kianna Bunch MD PhD Unavailable [phone] Santiago Gilbert MD Unavailable [phone] Encounter Details Date Type Department Care Team (Late st Contact Info) Description 04/11/2018 Orders Only [facility] Oncology [address] [place] [address] Fatemeh Zarate, LYDIA Social History Tobacco Use Types Packs/Day Years Used Date Smoking Tobacco: Former Cigarettes 2015 Smokeless Tobacco: Never Alcohol Use Standard Drinks/Week Comments Yes 0 (1 standard drink = 0.6 oz pur e alcohol) socially Comments No Sex and Gender Information Value Date Recorded Sex Assigned at Not on file Legal Sex Female 1:06 AM MAINTENANCE TECHNICIAN 3RD SHIFT Gender Identity Not on file Sexual Orientation Not on file documented as of this encounter Plan of Treatment Not on file documented as of this encounter Visit Diagnoses Not on filedocumented in this encounter Care Teams Floors Buffer Relationship Specialty Start Date End Date Ravi Smith MD PCP - General 11/04/17 09/27/21 Kianna Bunch MD PhD [address] [place] [address] Surgeon Surgical Oncology 11/22/17 Santiago Gilbert MD [address] [place] [address] Kettle Cleaner Gastroenterology 11/22/17 documented as of this encounter
--- OUTSIDE RECORDS SUMMARY | 2024-04-24 15:00 | XMS_ITS | Encounter Summary ---
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) Procedures mFOLFOX6: (Fluorouracil / Leucovorin / Oxaliplatin) 14 Day Cycles Abbi Ventura MD [address] [facility] [address] [place] [address] Phone: tel: fax: [facility] [address] [place] [address] Phone: tel: Referral ID Status Reason Start Date Expiration Date Visits Re quested Visits Authorized [id number] Closed 01/31/2018 05/05/2019 1 18 Encounter Details Date Type Department Care Team (Latest Contact Info) Description 03/25/2018 10:00 AM TRAINING DIRECTOR Clinical Support [facility] [address] [place] [address] 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) Social History Tobacco Use Types Packs/Day Years Used Date Smoking Tobacco: Former Cigarettes 1 2015 Smokeless Tobacco: Never Alcohol Use Standard Drinks/Week Comments Yes 0 (1 standard drink = 0.6 oz pur e alcohol) socially Comments No Sex and Gender Information Value Date Recorded Sex Assigned at Not on file Legal Sex Female 1:06 AM TRAINING DIRECTOR Gender Identity Not on file Sexual Orientation Not on file documented as of this encounter Plan of Treatment Not on file documented as of this encounter Procedures Procedure Name Priority Date/Time Associated Diagnosis Comments DIFFERENTIAL AUTO Routine 03/25/2018 10: 25 AM TRAINING DIRECTOR Malignant neoplasm of descending colon (CMS/HCC) CBC WITH AUTO DIFFERENTIAL Routine 03/25/2018 10:25 AM TRAINING DIRECTOR Malignant neoplasm of descending colon (CMS/HCC) COMPREHENSIVE METABOLIC PANEL Routine 03/25/2018 10:25 AM TRAINING DIRECTOR Malignant neoplasm of descending colon (CMS/HCC) documented in this encounter Results * (ABNORMAL) Differential, auto (03/25/2018 10:25 AM TRAINING DIRECTOR) Neutrophil abs 4.3 1.7 - 6.5 K/cumm [facility] Imm gran abs 0.3(H) 0.0 - 0.1 K/cumm [facility] Lymphocyte abs 1.7 0.8 - 3.3 K/cumm [facility] Monocyte abs 0.5 0.2 - 0.8 K/cumm [facility] Eosinophil abs 0.2 0.0 - 0.5 K/cumm [facility] Basophil abs 0.1 0.0 - 0.1 K/cumm [facility] Neutrophil pct 60.8 % [facility] Comment: Interpretive Data Percent cell count reference ranges are not reported, since discordance with absolute values may lead to misinterpretation of CBC data. Current Interpretive Data was last revised on 2017. Imm gran pct 4.5 % [facility] Comment: Interpretive Data Percent cell count reference ranges are not reported, since discordance with absolute values may lead to misinterpretation of CBC data. Current Interpretive Data was last revised on 2017. Lymphocyte pct 24.4 % [facility] Comment: Interpretive Data Percent cell count reference ranges are not reported, since discordance with absolute values may lead to misinterpretation of CBC data. Current Interpretive Data was last revised on 2017. Monocyte pct 7.2 % [facility] Comment: Interpretive Data Percent cell count reference ranges are not reported, since discordance with absolute values may lead to misinterpretation of CBC data. Current Interpretive Data was last revised on 2017. Eosinophil pct 2.1 % [facility] Comment: Interpretive Data Percent cell count reference ranges are not reported, since discordance with absolute values may lead to misinterpretation of CBC data. Current Interpretive Data was last revised on 2017. Basophil pct 1.0 % [facility] Comment: Interpretive Data Percent cell count reference ranges are not reported, since discordance with absolute values may lead to misinterpretation of CBC data. Current Interpretive Data was last revised on 2017. Blood specimen (specimen) 03/25/2018 10:25 AM TRAINING DIRECTOR 03/25/2018 10:28 AM TRAINING DIRECTOR Narrative [facility] - 03/25/2018 10:31 AM TRAINING DIRECTOR us Abbi Ventura MD LAB BLOOD ORDERABLES Final Resul t [facility] [place] [address] * (ABNORMAL) Comprehensive metabolic panel (03/25/2018 10:25 AM TRAINING DIRECTOR) Sodium 142 135 - 145 mmol/L [facility] Potassium, pl 2.9(L) 3.3 - 4.9 mmol/L [facility] Chloride 104 97 - 110 mmol/L [facility] CO2 27 22 - 32 mmol/L [facility] Anion gap 11 2 - 15 mmol/L [facility] BUN 23 8 - 25 mg/dL [facility] Creatinine 0.95 0.60 - 1.10 mg/dL [facility] Glucose 249(H) 70 - 199 mg/dL [facility] [...] 2017. Calcium 8.9 8.5 - 10.3 mg/dL [facility] Bilirubin, total 0.3 0.1 - 1.2 mg/dL [facility] Protein, pl 6.0(L) 6.5 - 8.5 g/dL [facility] Albumin 3.7 3.5 - 5.0 g/dL [facility] Alk phos 83 40 - 130 Units/L [facility] ALT 24 7 - 45 Units/L [facility] AST 35 10 - 45 Units/L [facility] Blood specimen (specimen) 03/25/2018 10:25 AM TRAINING DIRECTOR 03/25/2018 10:28 AM TRAINING DIRECTOR Narrative [facility] - 03/25/2018 11:19 AM TRAINING DIRECTOR us Abbi Ventura MD LAB BLOOD ORDERABLES Final Resul t [facility] [place] [address] * (ABNORMAL) CBC with auto differential (03/25/2018 10:25 AM TRAINING DIRECTOR) [facility] WBC 7.1 3.8 - 9.9 K/cumm [facility] Hgb 10.1(L) 11.9 - 15.5 g/dL [facility] Hct 29.4(L) 35.6 - 45.5 % [facility] Plt 89(L) 150 - 400 K/cumm [facility] MPV 8.9(L) 9.1 - 12.3 fL [facility] RBC 3.23(L) 3.90 - 5.20 M/cumm [facility] MCV 91.0 81.3 - 96.4 fL [facility] MCH 31.3 27.1 - 33.3 pg [facility] MCHC 34.4 32.3 - 35.7 g/dL [facility] RDW CV 15.3(H) 11.1 - 14.9 % [facility] RDW SD 49.5(H) 35.7 - 48.1 fL [facility] NRBC abs 0.03(H) 0.00 - 0.01 K/cumm [facility] Blood specimen (specimen) 03/25/2018 10:25 AM TRAINING DIRECTOR 03/25/2018 10:28 AM TRAINING DIRECTOR Narrative [facility] - 03/25/2018 10:31 AM TRAINING DIRECTOR us Abbi Ventura MD LAB BLOOD ORDERABLES Final Resul t [facility] [place] [address] documented in this encounter Visit Diagnoses Diagnosis 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
--- OUTSIDE RECORDS SUMMARY | 2024-04-24 15:00 | XMS_ITS | Encounter Summary ---
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) Procedures mFOLFOX6: (Fluorouracil / Leucovorin / Oxaliplatin) 14 Day Cycles Abbi Ventura MD [address] [place] [address] [place] [address] Phone: tel: fax: [facility] [address] [place] [phone] Phone: tel: Referral ID Status Reason Start Date Expiration Date Visits Re quested Visits Authorized [id number] Closed 01/31/2018 05/05/2019 1 18 Encounter Details Date Type Department Care Team (Late st Contact Info) Description 03/25/2018 10:30 AM ACUTE CARE PHYSICAL THERAPIST Infusion [facility] [address] [place] [address] Malignant neoplasm of descending colon (CMS/HCC) (Primary [...] on file Legal Sex Female 1:06 AM ACUTE CARE PHYSICAL THERAPIST Gender Identity Not on file Sexual Orientation Not on file documented as of this encounter Last Filed Vital Signs Vital Sign Reading Time Taken Comments Blood Pressure 117/64 03/25/2018 10:33 AM ACUTE CARE PHYSICAL THERAPIST Pulse 104 03/25/2018 10:33 AM ACUTE CARE PHYSICAL THERAPIST Temperature 36.8 ??C (98.2 ??F) 03/25/2018 1 0:33 AM ACUTE CARE PHYSICAL THERAPIST Respiratory Rate 16 03/25/2018 10:3 3 AM ACUTE CARE PHYSICAL THERAPIST Oxygen Saturation 95% 03/25/2018 10: 33 AM ACUTE CARE PHYSICAL THERAPIST Inhaled Oxygen Concentration - - Weight 107.6 kg (237 lb 4.8 oz) 018 10:33 AM ACUTE CARE PHYSICAL THERAPIST Height - - Body Mass Index 36.08 03/19/2018 10:05 AM ACUTE CARE PHYSICAL THERAPIST documented in this encounter Nursing Notes * Ashlyn Burger, RN - 03/25/2018 10:30 AM CST Chemotherapy Nursing Note [facility] Aleah Gerber is a 62 y.o. female who presents for chemotherapy cycle 4, day(s) 1 of FOLFOX (D963). Pre-treatment nursing assessment: No problems identified upon assessment. Patient met treatment parameters, K 2.9 today. Patient received 40 mEq IV replacement today and verbally agrees to excelsior picker oral replacement on way home today. [...] by: Self and Friend Discharged To: Home E CARE PHYSICAL THERAPIST E CARE PHYSICAL THERAPIST documented in this encounter Plan of Treatment [...] (CMS/HCC) (HCC) New Bag 03/25/2018 11:43 AM ACUTE CARE PHYSICAL THERAPIST 10 mg 153 mL/hr fluorouracil (ADRUCIL) 5,550 mg in cadd cassette 111 mL infusion - for home infusion 5,550 mg (rounded from 5,568 mg = 2,400 mg/m2 ? 2.32 m2 Treatment Plan BSA from Recorded weight), intravenous, at 2.4 mL/hr, Administer over 46 Hours, over 46 hours, First dose on Sat03/25/18 at 1515, FOR PUMP PROBLEMS CALL [phone] IrritantIndications:Tammie gnant neoplasm of descending colon (CMS/HCC) (HCC) Given 03/25/2018 4:06 PM ACUTE CARE PHYSICAL THERAPIST 5,550 mg 2.4 mL/hr fluorouracil (ADRUCIL) IV syringe 925 mg 18.5 mL 925 mg (rounded from 928 mg = 400 mg/m2 ? 2.32 m2 Treatment Plan BSA from Recorded weight), intravenous, Administer over 5 Minutes, Once, On Sat03/25/18 at 1445, For 1 dose, IrritantIndications:Tammie gnant neoplasm of descending colon (CMS/HCC) (HCC) New Bag 03/25/2018 4:02 PM ACUTE CARE PHYSICAL THERAPIST 925 mg leucovorin 925 mg in dextrose [...] (CMS/HCC) (HCC) New Bag 03/25/2018 12:22 PM ACUTE CARE PHYSICAL THERAPIST 925 mg 134.3 mL/hr palonosetron injection 250 mcg 250 mcg (0.25 mg), intravenous, Once, On Sat03/25/18 at 1215, For 1 dose, For IV push, administer over 30 seconds.Indications:Malign ant neoplasm of descending colon (CMS/HCC) (HCC) Given 03/25/2018 11:41 AM ACUTE CARE PHYSICAL THERAPIST 250 mcg potassium chloride 40 mEq in sodium chloride 0.9% 500 mL IVPB 40 mEq, intravenous, at 130 mL/hr, Administer over 4 Hours, Once, On Sat03/25/18 at 1230, For 1 doseIndications:Hypokalemi a,Malignant neoplasm of upper-inner quadrant of left breast in female, estrogen receptor negative (HCC) New Bag 03/25/2018 11:59 AM ACUTE CARE PHYSICAL THERAPIST 40 mEq 130 mL/hr documented in this [...] 03/25/2018 documented in this encounter Care Teams Securities Supervisor Relationship Specialty Start Date End Date Ravi Smith MD PCP - General 11/04/17 09/27/21 Aft, Kianna Machado MD PhD [address] [place] [address] Surgeon Surgical Oncology 11/22/17 Santiago Gilbert MD [address] [place] [address] Automotive Consultant Gastroenterology 11/22/17 documented as of this encounter
--- OUTSIDE RECORDS SUMMARY | 2024-04-24 15:01 | XMS_ITS | Encounter Summary ---
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) Procedures mFOLFOX6: (Fluorouracil / Leucovorin / Oxaliplatin) 14 Day Cycles Abbi Ventura MD [address] [facility] [address] [place] [address] Phone: tel: fax: [facility] [address] [place] [address] Phone: tel: Referral ID Status Reason Start Date Expiration Date Visits Re quested Visits Authorized [id number] Closed 01/31/2018 05/05/2019 1 18 Encounter Details Date Type Department Care Team (Latest Contact Info) Description 03/19/2018 9:15 AM WEIGHT GUESSER Clinical Support [facility] [address] [place] [address] Malignant neoplasm of descending colon (CMS/HCC) Social History Tobacco Use Types Packs/Day Years Used Date Smoking Tobacco: Former Cigarettes 1 2015 Smokeless Tobacco: Never Alcohol Use Standard Drinks/Week Comments Yes 0 (1 standard drink = 0.6 oz pur e alcohol) socially Comments No Sex and Gender Information Value Date Recorded Sex Assigned at Not on file Legal Sex Female 1:06 AM WEIGHT GUESSER Gender Identity Not on file Sexual Orientation Not on file documented as of this encounter Miscellaneous Notes * Addendum Note - Tiffany Pina RN - 03/19/2018 9:15 AM CSTAddended by: TIFFANY CURRY on: 03/19/2018 04:30 PM Modules accepted: Orders HT GUESSER documented in this encounter Plan of Treatment Not on file documented as of this encounter Procedures Procedure Name Priority Date/Time Associated Diagnosis Comments DIFFERENTIAL AUTO Routine 03/19/2018 9:2 3 AM WEIGHT GUESSER Malignant neoplasm of descending colon (CMS/HCC) CBC WITH AUTO DIFFERENTIAL Routine 03/19/2018 9:23 AM WEIGHT GUESSER Malignant neoplasm of descending colon (CMS/HCC) CEA Routine 03/19/2018 9:23 AM WEIGHT GUESSER Malignant neoplasm of descending colon (CMS/HCC) COMPREHENSIVE METABOLIC PANEL STAT 03/19/2018 9:23 AM WEIGHT GUESSER Malignant neoplasm of descending colon (CMS/HCC) documented in this encounter Results * (ABNORMAL) Differential, auto (03/19/2018 9:23 AM WEIGHT GUESSER) Neutrophil abs 1.1(L) 1.7 - 6.5 K/cumm [facility] Imm gran abs 0.1 0.0 - 0.1 K/cumm [facility] Lymphocyte abs 1.8 0.8 - 3.3 K/cumm [facility] Monocyte abs 0.6 0.2 - 0.8 K/cumm [facility] Eosinophil abs 0.0 0.0 - 0.5 K/cumm [facility] Basophil abs 0.0 0.0 - 0.1 K/cumm [facility] Neutrophil pct 29.7 % [facility] Comment: Interpretive Data Percent cell count reference ranges are not reported, since discordance with absolute values may lead to misinterpretation of CBC data. Current Interpretive Data was last revised on 2017. Imm gran pct 1.6 % [facility] Comment: Interpretive Data Percent cell count reference ranges are not reported, since discordance with absolute values may lead to misinterpretation of CBC data. Current Interpretive Data was last revised on 2017. Lymphocyte pct 48.9 % [facility] Comment: Interpretive Data Percent cell count reference ranges are not reported, since discordance with absolute values may lead to misinterpretation of CBC data. Current Interpretive Data was last revised on 2017. Monocyte pct 17.3 % [facility] Comment: Interpretive Data Percent cell count reference ranges are not reported, since discordance with absolute values may lead to misinterpretation of CBC data. Current Interpretive Data was last revised on 2017. Eosinophil pct 1.4 % [facility] Comment: Interpretive Data Percent cell count reference ranges are not reported, since discordance with absolute values may lead to misinterpretation of CBC data. Current Interpretive Data was last revised on 2017. Basophil pct 1.1 % [facility] Comment: Interpretive Data Percent cell count reference ranges are not reported, since discordance with absolute values may lead to misinterpretation of CBC data. Current Interpretive Data was last revised on 2017. Blood specimen (specimen) 03/19/2018 9:23 AM WEIGHT GUESSER 03/19/2018 9:24 AM WEIGHT GUESSER Narrative [facility] - 03/19/2018 9:27 AM WEIGHT GUESSER us Abbi Ventura MD LAB BLOOD ORDERABLES Final Resul t [facility] One [facility] Department of Laboratories [place], [place] [id number] * (ABNORMAL) Comprehensive metabolic panel (03/19/2018 9:23 AM WEIGHT GUESSER) Sodium 139 135 - 145 mmol/L [facility] Potassium, pl 2.8(L) 3.3 - 4.9 mmol/L [facility] Chloride 102 97 - 110 mmol/L [facility] CO2 24 22 - 32 mmol/L [facility] Anion gap 13 2 - 15 mmol/L [facility] BUN 14 8 - 25 mg/dL [facility] Creatinine 1.21(H) 0.60 - 1.10 mg/dL [facility] Glucose 234(H) 70 - 199 mg/dL [facility] [...] 2017. Calcium 9.0 8.5 - 10.3 mg/dL [facility] Bilirubin, total 0.6 0.1 - 1.2 mg/dL [facility] Protein, pl 6.4(L) 6.5 - 8.5 g/dL [facility] Albumin 3.9 3.5 - 5.0 g/dL [facility] Alk phos 88 40 - 130 Units/L [facility] ALT 35 7 - 45 Units/L [facility] AST 39 10 - 45 Units/L [facility] Blood specimen (specimen) 03/19/2018 9:23 AM WEIGHT GUESSER 03/19/2018 9:24 AM WEIGHT GUESSER Narrative [facility] - 03/19/2018 9:47 AM WEIGHT GUESSER us Abbi Ventura MD LAB BLOOD ORDERABLES Final Resul t [facility] One [facility] [place] [address] * CEA (03/19/2018 9:23 AM WEIGHT GUESSER) CEA 4.8 0.0 - 5.0 ng/mL [facility] Comment: Interpretative Data: Reference Range: Non-Smokers: 0.0 - 5.0 ng/mL Smokers: 0.0 ? 6.5 ng/mL This test was developed and its performance characteristics determined by the [facility] in a manner consistent with CLIA requirements. This test has not been cleared or approved by the U.S. Food and Drug Administration. Current interpretive data was last revised 2018. Blood specimen (specimen) 03/19/2018 9:23 AM WEIGHT GUESSER 03/19/2018 10:37 AM WEIGHT GUESSER Narrative [facility] - 03/19/2018 11:25 AM WEIGHT GUESSER us Abbi Ventura MD LAB BLOOD ORDERABLES Final Resul t [facility] One [facility] Department [place] [address] * (ABNORMAL) CBC with auto differential (03/19/2018 9:23 AM WEIGHT GUESSER) WBC 3.6(L) 3.8 - 9.9 K/cumm [facility] Hgb 12.4 11.9 - 15.5 g/dL [facility] Hct 35.5(L) 35.6 - 45.5 % [facility] Plt 121(L) 150 - 400 K/cumm [facility] MPV 9.0(L) 9.1 - 12.3 fL [facility] RBC 4.02 3.90 - 5.20 M/cumm [facility] MCV 88.3 81.3 - 96.4 fL [facility] MCH 30.8 27.1 - 33.3 pg [facility] MCHC 34.9 32.3 - 35.7 g/dL [facility] RDW CV 14.4 11.1 - 14.9 % [facility] RDW SD 44.1 35.7 - 48.1 fL [facility] NRBC abs 0.05(H) 0.00 - 0.01 K/cumm [facility] Blood specimen (specimen) 03/19/2018 9:23 AM WEIGHT GUESSER 03/19/2018 9:24 AM WEIGHT GUESSER Narrative [facility] - 03/19/2018 9:27 AM WEIGHT GUESSER us Abbi Ventura MD LAB BLOOD ORDERABLES Final Resul t [facility] One [facility] Department [place] [address] documented in this encounter Visit Diagnoses Diagnosis 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
--- OUTSIDE RECORDS SUMMARY | 2024-04-24 15:01 | XMS_ITS | Encounter Summary ---
Author Organization [facility] Address [address] [place] [address] Phone Care Team Providers Care Machine Fancy Stitcher Name Role Phone Ravi Smith MD Primary Care Provider [phone] Aft, Kianna Machado MD PhD Unavailable [phone] Santiago Gilbert MD Unavailable [phone] Encounter Details Date Type Department Care Team (Late st Contact Info) Description 02/21/2018 Telephone [facility] [address] [place] [phone] Jade May, RN Social History Tobacco Use Types Packs/Day Years Used Date Smoking Tobacco: Former Cigarettes 2015 Smokeless Tobacco: Never Alcohol Use Standard Drinks/Week Comments Yes 0 (1 standard drink = 0.6 oz pur e alcohol) socially Comments No Sex and Gender Information Value Date Recorded Sex Assigned at Not on file Legal Sex Female 1:06 AM FILTER PLANT SUPERVISOR Gender Identity Not on file Sexual Orientation Not on file documented as of this encounter Miscellaneous Notes * Telephone Encounter - Jade May - 02/21/2018 9:58 AM CDT Called and spoke with Pt daughterDebbi to f/u on patient going to the ED yesterday. Pt was taken to [facility] and is undergoing the stroke protocol. She [...] filedocumented in this encounter Care Teams Machine Fancy Stitcher Relationship Specialty Start Date End Date Ravi Smith MD PCP - General 11/04/17 09/27/21 Aft, Kianna Machado MD PhD [address] [place] [address] Surgeon Surgical Oncology 11/22/17 Santiago Gilbert MD [address] [place] [address] Software Project Lead Gastroenterology 11/22/17 documented as of this encounter
--- OUTSIDE RECORDS SUMMARY | 2024-04-24 15:01 | XMS_ITS | Encounter Summary ---
Author Organization [facility] Address [address] [place] [address] Phone Care Team Providers Care Director Of Individual Giving Name Role Phone Ravi Smith MD Primary Care Provider [phone] Aft, Kianna Machado MD PhD Unavailable [phone] Santiago Gilbert MD Unavailable [phone] Reason for Visit * Reason Onset Date Comments Diarrhea 03/14/2018 Fatigue 03/14/2018 Encounter Details Date Type Department Care Team (Late st Contact Info) Description 03/14/2018 Telephone [facility] [address] [place] [phone] Fatemeh Zarate RN Diarrhea; Fatigue Social History Tobacco Use Types Packs/Day Years Used Date Smoking Tobacco: Former Cigarettes 2015 Smokeless Tobacco: Never Alcohol Use Standard Drinks/Week Comments Yes 0 (1 standard drink = 0.6 oz pur e alcohol) socially Comments No Sex and Gender Information Value Date Recorded Sex Assigned at Not on file Legal Sex Female 1:06 AM PRIMARY CARE NURSE Gender Identity Not on file Sexual [...] 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 [...] hour period. Scheduled pt to come to [facility] to check BMP, orthostatic b/p, and IVF. DB ARY CARE NURSE documented in this encounter Plan of Treatment Not on file documented as of this encounter Visit Diagnoses Not on filedocumented in this encounter Care Teams Director Of Individual Giving Relationship Specialty Start Date End Date Ravi Smith MD PCP - General 11/04/17 09/27/21 Aft, Kianna Machado MD PhD [address] [place] [address] Surgeon Surgical Oncology 11/22/17 Santiago Gilbert MD [address] [place] [address] Diesel Scoop Operator Gastroenterology 11/22/17 documented as of this encounter
--- OUTSIDE RECORDS SUMMARY | 2024-04-24 15:01 | XMS_ITS | Encounter Summary ---
Author Organization [facility] Address [address] [place] [address] Phone Care Team Providers Care Document Image Technician Name Role Phone Ravi Smith MD Primary Care Provider [phone] Aft, Kianna Machado MD PhD Unavailable [phone] Santiago Gilbert MD Unavailable [phone] Reason for Visit * Reason Comments OP Infusion * Episode Based Medications (Routine) - Closed Specialty Diagnoses / Procedures Referred By Contac t Referred To Contact Diagnoses Malignant neoplasm of upper-inner quadrant of left breast in female, estrogen receptor negative (HCC) Hypokalemia Hypomagnesemia Procedures IVF Abbi Ventura MD [address] [facility] [address] [place] [address] Phone: tel: fax: [facility] [address] [place] [address] Phone: tel: fax: Referral ID Status Reason Start Date Expiration Date Visits Re quested Visits Authorized [id number] Closed 03/14/2018 10/22/2018 99 99 Encounter Details Date Type Department Care Team (Late st Contact Info) Description 03/14/2018 11:45 AM TANNERY GUMMER Infusion [facility] [address] [place] [phone] Dehydration (Primary Dx); Malignant neoplasm of descending [...] on file Legal Sex Female 1:06 AM TANNERY GUMMER Gender Identity Not on file Sexual Orientation Not on file documented as of this encounter Last Filed Vital Signs Vital Sign Reading Time Taken Comments Blood Pressure 137/90 03/14/2018 12:07 PM TANNERY GUMMER Pulse 125 03/14/2018 12:07 PM TANNERY GUMMER Temperature 37 ??C (98.6 ??F) 03/14/2018 12: 07 PM TANNERY GUMMER Respiratory Rate 18 03/14/2018 12:0 7 PM TANNERY GUMMER Oxygen Saturation 96% 03/14/2018 12: 07 PM TANNERY GUMMER Inhaled Oxygen Concentration - - Weight 103.8 kg (228 lb 14.4 oz) 2017 12:07 PM TANNERY GUMMER Height - - Body Mass Index 34.8 03/06/2018 12:14 PM CDT documented in this encounter Nursing Notes * Ashlyn Burger RN - 03/14/2018 11:45 AM CST Patient completed 1L NS, no longer orthostatic and states feeling much better. Potassium level 3.0,Fatemeh notified. 20meQ IV ordered today and patient to roll picker 40meQ to take tomorrow morning. Instructions communicated to patient, she verbally understands and will roll picker on her way home. ToleratedIV K well, sent home in stable condition. 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),Malignant neoplasm of upper-inner quadrant of left breast in female, estrogen receptor negative (HCC) New Bag 03/14/2018 12:19 PM TANNERY GUMMER 1,000 mL 666.7 mL/hr documented in this encounter Orders Medications Ordered That [place] ht Not Have Been Administered Count Last Ordered Date First Ordered Date heparin 100 unit/mL injection 500 Units 1 1 05/14/2017 sodium chloride 0.9% flush 10 mL 1 03/14/20 documented in this encounter Care Teams Document Image Technician Relationship Specialty Start Date End Date Ravi Smith MD PCP - General 11/04/17 09/27/21 Aft, Kianna Machado MD PhD [address] [place] [address] Surgeon Surgical Oncology 11/22/17 Santiago Gilbert MD [address] [place] [address] Pipe Fitter Helper Gastroenterology 11/22/17 documented as of this encounter
--- OUTSIDE RECORDS SUMMARY | 2024-04-24 15:01 | XMS_ITS | Encounter Summary ---
Author Organization [facility] Address [address] [place] [address] Phone Care Team Providers Care Hydroelectric Component Machinist Name Role Phone Ravi Smith MD Primary Care Provider [phone] Aft, Kianna Machado MD PhD Unavailable [phone] Santiago Gilbert MD Unavailable [phone] Encounter Details Date Type Department Care Team (Late st Contact Info) Description 03/14/2018 Orders Only [facility] Oncology [address] [place] [address] Abbi Ventura MD [address] [facility] [address] [place] [address] Dehydration (Primary Dx) Social History Tobacco Use Types Packs/Day Years Used Date Smoking Tobacco: Former Cigarettes 2015 Smokeless Tobacco: Never Alcohol Use Standard Drinks/Week Comments Yes 0 (1 standard drink = 0.6 oz pur e alcohol) socially Comments No Sex and Gender Information Value Date Recorded Sex Assigned at Not on file Legal Sex Female 1:06 AM WAITER Gender Identity Not on file Sexual Orientation [...] encounter Results * Magnesium (03/14/2018 12:07 PM WAITER) Pathologist [facility] Magnesium 1.7 1.4 - 2.5 mg/dL [facility] Blood specimen (specimen) 03/14/2018 12:07 PM WAITER 03/14/2018 12:07 PM WAITER Narrative [facility] - 03/14/2018 12:51 PM WAITER us Abbi Ventura MD LAB BLOOD ORDERABLES Final Resul t [facility] Department [place] [address] * (ABNORMAL) Basic metabolic panel (03/14/2018 12:07 PM WAITER) Pathologist [facility] Sodium 136 135 - 145 mmol/L [facility] Potassium, pl 3.0(L) 3.3 - 4.9 mmol/L [facility] Chloride 100 97 - 110 mmol/L [facility] CO2 24 22 - 32 mmol/L [facility] Anion gap 12 2 - 15 mmol/L [facility] BUN 21 8 - 25 mg/dL [facility] Creatinine 0.89 0.60 - 1.10 mg/dL [facility] Glucose 177 70 - 199 mg/dL [facility] Comment: Interpretive Data Fasting glucose >/= [...] 2017. Calcium 9.0 8.5 - 10.3 mg/dL [facility] Blood specimen (specimen) 03/14/2018 12:07 PM WAITER 03/14/2018 12:07 PM WAITER Narrative [facility] - 03/14/2018 12:51 PM WAITER us Abbi Ventura MD LAB BLOOD ORDERABLES Final Resul t [facility] Department [place] [address] documented in this encounter Visit Diagnoses Diagnosis Dehydration- Primary Dehydration documented in this encounter Care Teams Hydroelectric Component Machinist Relationship Specialty Start Date End Date Ravi Smith MD PCP - General 11/04/17 09/27/21 Aft, Kianna Machado MD PhD [address] [place] [address] Surgeon Surgical Oncology 11/22/17 Santiago Gilbert MD [address] [place] [address] Center Manager Gastroenterology 11/22/17 documented as of this encounter
--- OUTSIDE RECORDS SUMMARY | 2024-04-24 15:01 | XMS_ITS | Encounter Summary ---
Author Organization [facility] Address [address] [place] [address] Phone Care Team Providers Care Cleaning Professional Name Role Phone Ravi Smith MD Primary Care Provider [phone] Aft, Kianna Machado MD PhD Unavailable [phone] Santiago Gilbert MD Unavailable [phone] Encounter Details Date Type Department Care Team (Late st Contact Info) Description 02/24/2018 Orders Only [facility] Oncology [address] [place] [address] Abbi Ventura MD [address] [facility] [address] [place] [address] Malignant neoplasm of descending colon (CMS/HCC) (Primary [...] on file Legal Sex Female 1:06 AM SILO WORKER Gender Identity Not on file Sexual Orientation Not on file documented as of this encounter Plan of Treatment Not on file documented as of this encounter Visit Diagnoses Diagnosis 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
--- OUTSIDE RECORDS SUMMARY | 2024-04-24 15:01 | XMS_ITS | Encounter Summary ---
Author Organization [facility] Address [address] [place] [address] Phone Care Team Providers Care Science Faculty Member Name Role Phone Ravi Smith MD Primary Care Provider [phone] Aft, Kianna Machado MD PhD Unavailable [phone] Santiago Gilbert MD Unavailable Encounter Details Date Type Department Care Team (Late st Contact Info) Description 03/14/2018 11:30 AM SENIOR SYSTEM OPERATOR Clinical Support [facility] Oncology [address] [place] [address] Dehydration Social History Tobacco Use Types Packs/Day Years Used Date Smoking Tobacco: Former Cigarettes 2015 Smokeless Tobacco: Never Alcohol Use Standard Drinks/Week Comments Yes 0 (1 standard drink = 0.6 oz pur e alcohol) socially Comments No Sex and Gender Information Value Date Recorded Sex Assigned at Not on file Legal Sex Female 1:06 AM SENIOR SYSTEM OPERATOR Gender Identity Not on file Sexual Orientation Not on file documented as of this encounter Plan of Treatment Not on file documented as of this encounter Procedures Procedure Name Priority Date/Time Associated Diagnosis Comments MAGNESIUM STAT 03/14/2018 12:07 PM SENIOR SYSTEM OPERATOR Dehydration BASIC METABOLIC PANEL STAT 03/14/2018 12:07 PM SENIOR SYSTEM OPERATOR Dehydration documented in this encounter Results * Magnesium (03/14/2018 12:07 PM SENIOR SYSTEM OPERATOR) Pathologist [facility] Magnesium 1.7 1.4 - 2.5 mg/dL [facility] Blood specimen (specimen) 03/14/2018 12:07 PM SENIOR SYSTEM OPERATOR 03/14/2018 12:07 PM SENIOR SYSTEM OPERATOR Narrative [facility] - 03/14/2018 12:51 PM SENIOR SYSTEM OPERATOR Abbi Ventura MD LAB BLOOD ORDERABLES Final Resul t [facility] One [facility] Department [place] [address] * (ABNORMAL) Basic metabolic panel (03/14/2018 12:07 PM SENIOR SYSTEM OPERATOR) [facility] Sodium 136 135 - 145 mmol/L [facility] Blood specimen (specimen) 03/14/2018 12:07 PM SENIOR SYSTEM OPERATOR 03/14/2018 12:07 PM SENIOR SYSTEM OPERATOR Narrative [facility] - 03/14/2018 12:51 PM SENIOR SYSTEM OPERATOR us Abbi Ventura MD LAB BLOOD ORDERABLES Final Resul t [facility] Department [place] [address] documented in this encounter Visit Diagnoses Diagnosis Dehydration documented in this encounter Care Teams Science Faculty Member Relationship Specialty Start Date End Date Ravi Smith MD PCP - General 11/04/17 09/27/21 Aft, Kianna Machado MD PhD [address] [place] [address] Surgeon Surgical Oncology 11/22/17 Santiago Gilbert MD [address] [place] [address] Plater Printed Circuit Board Panels Gastroenterology 11/22/17 documented as of this encounter
--- OUTSIDE RECORDS SUMMARY | 2024-04-24 15:01 | XMS_ITS | Encounter Summary ---
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) Procedures [id number]: (Fluorouracil / Leucovorin / Oxaliplatin) 14 Day Cycles Abbi Ventura MD [address] [place] [address] [address] [place] [address] Phone: tel: fax: [facility] Oncology [address] [place] [address] Phone: tel: Referral ID Status Reason Start Date Expiration Date Visits Re quested Visits Authorized [id number] Closed 01/31/2018 05/05/2019 1 18 Encounter Details Date Type Department Care Team (Late st Contact Info) Description 02/24/2018 8:00 AM CDT Infusion [facility] Oncology [address] [place] [address] 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) Social History Tobacco Use Types Packs/Day Years Used Date Smoking Tobacco: Former Cigarettes 1 2015 Smokeless Tobacco: Never Alcohol Use Standard Drinks/Week Comments Yes 0 (1 standard drink = 0.6 oz pur e alcohol) socially Comments No Sex and Gender Information Value Date Recorded Sex Assigned at Not on file Legal Sex Female 1:06 AM PAYROLL AND BENEFITS COORDINATOR Gender Identity Not on file Sexual [...] 02/24/18 at 1145, FOR PUMP PROBLEMS CALL [phone] IrritantIndications:Raheel russo neoplasm of descending colon (CMS/HCC) [...] 02/24/2018 documented in this encounter Care Teams Head Of Advertising Relationship Specialty Start Date End Date Ravi Smith MD PCP - General 11/04/17 09/27/21 Aft, Kianna Machado MD PhD [address] [place] [address] Surgeon Surgical Oncology 11/22/17 Santiago Gilbert MD [address] [place] [address] Gauge Operator Gastroenterology 11/22/17 documented as of this encounter
--- OUTSIDE RECORDS SUMMARY | 2024-04-24 15:01 | XMS_ITS | Encounter Summary ---
Author Organization [facility] Address [address] [place] [address] Phone Care Team Providers Care Dock Clerk Name Role Phone Ravi Smith MD Primary Care Provider [phone] Aft, Kianna Machado MD PhD Unavailable [phone] Santiago Gilbert MD Unavailable [phone] Encounter Details Date Type Department Care Team (Late st Contact Info) Description 02/25/2018 Telephone [facility] Oncology [address] [place] [address] Cat Ryder Social History Tobacco Use Types Packs/Day Years Used Date Smoking Tobacco: Former Cigarettes 2015 Smokeless Tobacco: Never Alcohol Use Standard Drinks/Week Comments Yes 0 (1 standard drink = 0.6 oz pur e alcohol) socially Comments No Sex and Gender Information Value Date Recorded Sex Assigned at Not on file Legal Sex Female 1:06 AM WARD NURSE Gender Identity Not on file Sexual [...] on filedocumented in this encounter Care Teams Dock Clerk Relationship Specialty Start Date End Date Ravi Smith MD PCP - General 11/04/17 09/27/21 Aft, Kianna Machado MD PhD [address] [place] [address] Surgeon Surgical Oncology 11/22/17 Santiago Gilbert MD [address] [place] [address] Plate Cutter Gastroenterology 11/22/17 documented as of this encounter
--- OUTSIDE RECORDS SUMMARY | 2024-04-24 15:01 | XMS_ITS | Encounter Summary ---
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) Procedures mFOLFOX6: (Fluorouracil / Leucovorin / Oxaliplatin) 14 Day Cycles Abbi Ventura MD 10 [facility] [address] [place] [address] Phone: tel: fax: [facility] Oncology [address] [place] [address] Phone: tel: Referral ID Status Reason Start Date Expiration Date Visits Re quested Visits Authorized [id number] Closed 01/31/2018 05/05/2019 1 18 Encounter Details Date Type Department Care Team (Latest Contact Info) Description 03/06/2018 10:30 AM CDT Clinical Support [facility] Oncology [address] [place] [address] Malignant neoplasm of descending colon (CMS/HCC); Malignant [...] on file Legal Sex Female 1:06 AM WINDLACE MACHINE OPERATOR Gender Identity Not on file [...] Neutrophil abs 5.1 1.7 - 6.5 K/cumm [facility] Imm gran abs 0.0 0.0 - 0.1 K/cumm [facility] Lymphocyte abs 1.5 0.8 - 3.3 K/cumm [facility] Monocyte abs 0.5 0.2 - 0.8 K/cumm [facility] Eosinophil abs 0.4 0.0 - 0.5 K/cumm [facility] Basophil abs 0.0 0.0 - 0.1 K/cumm [facility] Neutrophil pct 67.2 % [facility] Comment: Interpretive Data Percent cell count reference ranges are not reported, since discordance with absolute values may lead to misinterpretation of CBC data. Current Interpretive Data was last revised on 2017. Imm gran pct 0.7 % [facility] Comment: Interpretive Data Percent cell count reference ranges are not reported, since discordance with absolute values may lead to misinterpretation of CBC data. Current Interpretive Data was last revised on 2017. Lymphocyte pct 19.8 % [facility] Comment: Interpretive Data Percent cell count reference ranges are not reported, since discordance with absolute values may lead to misinterpretation of CBC data. Current Interpretive Data was last revised on 2017. Monocyte pct 6.3 % [facility] Comment: Interpretive Data Percent cell count reference ranges are not reported, since discordance with absolute values may lead to misinterpretation of CBC data. Current Interpretive Data was last revised on 2017. Eosinophil pct 5.7 % [facility] Comment: Interpretive Data Percent cell count reference ranges are not reported, since discordance with absolute values may lead to misinterpretation of CBC data. Current Interpretive Data was last revised on 2017. Basophil pct 0.3 % [facility] Comment: Interpretive Data Percent cell count reference ranges are not reported, since discordance with absolute values may lead to misinterpretation of CBC data. Current Interpretive Data was last revised on 2017. Blood specimen (specimen) 03/06/2018 10:38 AM CDT 03/06/2018 10:39 AM CDT Narrative [facility] - 03/06/2018 10:44 AM CDT us Abbi Vnetura MD LAB BLOOD ORDERABLES Final Resul t [facility] One [facility] [place] [address] * Comprehensive metabolic panel (03/06/2018 10:38 AM CDT) Sodium 138 135 - 145 mmol/L [facility] Potassium, pl 3.5 3.3 - 4.9 mmol/L [facility] Chloride 104 97 - 110 mmol/L [facility] CO2 25 22 - 32 mmol/L [facility] Anion gap 9 2 - 15 mmol/L [facility] BUN 22 8 - 25 mg/dL [facility] Creatinine 0.89 0.60 - 1.10 mg/dL [facility] Glucose 176 70 - 199 mg/dL [facility] Comment: [...] 2017. Calcium 9.2 8.5 - 10.3 mg/dL [facility] Bilirubin, total 0.4 0.1 - 1.2 mg/dL [facility] Protein, pl 6.6 6.5 - 8.5 g/dL [facility] Albumin 4.1 3.5 - 5.0 g/dL [facility] Alk phos 84 40 - 130 Units/L [facility] ALT 20 7 - 45 Units/L [facility] AST 21 10 - 45 Units/L [facility] Blood specimen (specimen) 03/06/2018 10:38 AM CDT 03/06/2018 10:39 AM CDT Narrative [facility] - 03/06/2018 11:00 AM CDT us Abbi Ventura MD LAB BLOOD ORDERABLES Final Resul t [facility] Department [place] [address] * (ABNORMAL) CBC with auto differential (03/06/2018 10:38 AM CDT) WBC 7.6 3.8 - 9.9 K/cumm [facility] Hgb 11.3(L) 11.9 - 15.5 g/dL [facility] Hct 33.4(L) 35.6 - 45.5 % [facility] Plt 107(L) 150 - 400 K/cumm [facility] MPV 9.2 9.1 - 12.3 fL [facility] RBC 3.75(L) 3.90 - 5.20 M/cumm [facility] MCV 89.1 81.3 - 96.4 fL [facility] MCH 30.1 27.1 - 33.3 pg [facility] MCHC 33.8 32.3 - 35.7 g/dL [facility] RDW CV 13.4 11.1 - 14.9 % [facility] RDW SD 43.2 35.7 - 48.1 fL [facility] NRBC abs 0.00 0.00 - 0.01 K/cumm [facility] Blood specimen (specimen) 03/06/2018 10:38 AM CDT 03/06/2018 10:39 AM CDT Narrative [facility] - 03/06/2018 10:44 AM CDT us Abbi Ventura MD LAB BLOOD ORDERABLES Final Resul t [facility] [place] [address] documented in this encounter Visit Diagnoses Diagnosis 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) Malignant neoplasm 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, estrogen receptor negative (HCC) documented in this encounter Orders Appointment Requests Count Last Ordered Date Fi rst Ordered Date ONCBCN LAB APPOINTMENT 1 03/06/2018 documented in this encounter Care Teams Box Estimator Relationship Specialty Start Date End Date Ravi Smith MD PCP - General 11/04/17 09/27/21 Aft, Kianna Machado MD PhD [address] [place] [address] Surgeon Surgical Oncology 11/22/17 Santiago Gilbert MD [address] [place] [address] Baker Test Gastroenterology 11/22/17 documented as of this encounter
--- OUTSIDE RECORDS SUMMARY | 2024-04-24 15:01 | XMS_ITS | Encounter Summary ---
Author Organization [facility] Address [address] [place] [address] Phone Care Team Providers Care Purchasing Officer Name Role Phone Ravi Smith MD Primary Care Provider [phone] AileentKianna MD PhD Unavailable [phone] Santiago Gilbert MD Unavailable [phone] Encounter Details Date Type Department Care Team (Late st Contact Info) Description 03/03/2018 Orders Only [facility] Scheduling [address] [place] [address] Zanilc, Tamara, RMA Social History Tobacco Use Types Packs/Day Years Used Date Smoking Tobacco: Former Cigarettes 2015 Smokeless Tobacco: Never Alcohol Use Standard Drinks/Week Comments Yes 0 (1 standard drink = 0.6 oz pur e alcohol) socially Comments No Sex and Gender Information Value Date Recorded Sex Assigned at Not on file Legal Sex Female 1:06 AM MARKETING AND DEVELOPMENT COORDINATOR Gender Identity Not on file Sexual Orientation Not on file documented as of this encounter Plan of Treatment Not on file documented as of this encounter Visit Diagnoses Not on filedocumented in this encounter Care Teams Purchasing Officer Relationship Specialty Start Date End Date Ravi Smith MD PCP - General 11/04/17 09/27/21 Kianna Bunch MD PhD [address] [place] [address] Surgeon Surgical Oncology 11/22/17 Santiago Gilbert MD [address] [place] [address] Naval Architect Specialist Gastroenterology 11/22/17 documented as of this encounter
--- OUTSIDE RECORDS SUMMARY | 2024-04-24 15:01 | XMS_ITS | Encounter Summary ---
Author Organization 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) Procedures [id number]: (Fluorouracil / Leucovorin / Oxaliplatin) 14 Day Cycles Abbi Ventura MD [address] [place] [address] [address] [place] [address] Phone: tel: fax: [facility] Oncology [address] [place] [address] Phone: tel: Referral ID Status Reason Start Date Expiration Date Visits Re quested Visits Authorized [id number] Closed 01/31/2018 05/05/2019 1 18 Encounter Details Date Type Department Care Team (Late st Contact Info) Description 03/06/2018 12:00 PM CDT Infusion [facility] Oncology [address] [place] [address] Malignant neoplasm of descending colon (CMS/HCC) (Primary [...] on file Legal Sex Female 1:06 AM ENAMEL BURNER Gender Identity Not on file Sexual [...] 03/06/18 at 1615, FOR PUMP PROBLEMS CALL [phone] IrritantIndications:Malig nant neoplasm of descending colon (CMS/HCC) [...] Irritant wih vesicant potential. Flush line with [id number]:Malignant neoplasm of descending colon (CMS/HCC) (HCC) New [...] 03/06/2018 documented in this encounter Care Teams Child Care Associate Teacher Relationship Specialty Start Date End Date Ravi Smith MD PCP - General 11/04/17 09/27/21 Aft, Kianna Machado MD PhD [address] [place] [address] Surgeon Surgical Oncology 11/22/17 Santiago Gilbert MD [address] [place] [address] Lidar Scientist Gastroenterology 11/22/17 documented as of this encounter
--- OUTSIDE RECORDS SUMMARY | 2024-04-24 15:01 | XMS_ITS | Encounter Summary ---
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) Procedures mFOLFOX6: (Fluorouracil / Leucovorin / Oxaliplatin) 14 Day Cycles Abbi Ventura MD [address] [place] [address] [address] [place] [address] Phone: tel: fax: [facility] [address] [place] [address] Phone: tel: Referral ID Status Reason Start Date Expiration Date Visits Re quested Visits Authorized [id number] Closed 01/31/2018 05/05/2019 1 18 Encounter Details Date Type Department Care Team (Late st Contact Info) Description 03/19/2018 10:30 AM CAR RENTAL MANAGER Infusion [facility] [address] [place] [address] Hypokalemia (Primary Dx); Malignant neoplasm of descending [...] file Legal Sex Female 1:06 AM CAR RENTAL MANAGER Gender Identity Not on file Sexual Orientation Not on file documented as of this encounter Last Filed Vital Signs Vital Sign Reading Time Taken Comments Blood Pressure 120/78 03/19/2018 1:24 PM CAR RENTAL MANAGER Pulse 106 03/19/2018 1:24 PM CAR RENTAL MANAGER Temperature - - Respiratory Rate - - [...] here, specimen supplies provided to take home. 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),Malignant neoplasm of upper-inner quadrant of left breast in female, estrogen receptor negative (HCC) New Bag 03/19/2018 11:15 AM CAR RENTAL MANAGER 1,000 mL 666.7 mL/hr documented in this encounter Orders Appointment Requests Count Last Ordered Date Fi rst Ordered Date ONCBCN LAB APPOINTMENT 1 03/25/2018 ONCBCN RETURN CHEMO 4HRS 2 03/25/2018 documented in this encounter Care Teams Teletype Clerk Relationship Specialty Start Date End Date Ravi Smith MD PCP - General 11/04/17 09/27/21 Aft, Kianna Machado MD PhD [address] [place] [address] Surgeon Surgical Oncology 11/22/17 Santiago Gilbert MD [address] [place] [address] Nipple Threader Gastroenterology 11/22/17 documented as of this encounter
--- OUTSIDE RECORDS SUMMARY | 2024-04-24 15:01 | XMS_ITS | Encounter Summary ---
Author Organization [facility] Address [address] [place] [address] Phone Care Team Providers Care Manager Quality Name Role Phone Ravi Smith MD Primary Care Provider [phone] Aft, Kianna Machado MD PhD Unavailable [phone] Santiago Gilbert MD Unavailable [phone] Reason for Referral * Allergy, Asthma, and Immunology (Routine) - Closed Specialty Diagnoses / Procedures Referred By Contac t Referred To Contact Diagnoses Adverse effect of drug, initial encounter Procedures Allergy skin tests drugs biol each Aldo Ramires MD PhD Phone: tel: fax: [facility] (All Locations) Referral ID Status Reason Start Date Expiration Date Visits Re quested Visits Authorized [id number] Closed 03/03/2018 04/04/2018 1 1 Reason for Visit * Allergy, Asthma, and Immunology (Routine) - Closed Specialty Diagnoses / Procedures Referred By Contac t Referred To Contact Allergy and Immunology Diagnoses oxaliplatin testing Procedures Ravi Bear MD Phone: tel: fax: Aldo Ramires MD PhD [address] [facility] [address] [place] [address] Phone: tel: fax: Referral ID Status Reason Start Date Expiration Date Visits Re quested Visits Authorized [id number] Closed 03/03/2018 09/12/2019 99 99 Encounter Details Date Type Department Care Team (Late st Contact Info) Description 03/03/2018 9:30 AM CDT Office Visit [facility] All[facility] and Immunology [address] [facility] [address] [place] [address] Aldo Ramires MD PhD [address] [facility] [address] [place] [address] Adverse effect of drug, initial encounter (Primary Dx) Social History Tobacco Use Types Packs/Day Years Used Date Smoking Tobacco: Former Cigarettes 2015 Smokeless Tobacco: Never Alcohol Use Standard Drinks/Week Comments Yes 0 (1 standard drink = 0.6 oz pur e alcohol) socially Comments No Sex and Gender Information Value Date Recorded Sex Assigned at Not on file Legal Sex Female 1:06 AM 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 Gender Identity Not on file Sexual [...] 12/01/2018 added in this encounter Care Teams Manager Quality Relationship Specialty Start Date End Date Ravi Smith MD PCP - General 11/04/17 09/27/21 Aft, Kianna Machado MD PhD [address] [place] [address] Surgeon Surgical Oncology 11/22/17 Santiago Gilbert MD [address] [place] [address] Regional Facilities Manager Gastroenterology 11/22/17 documented as of this encounter
--- OUTSIDE RECORDS SUMMARY | 2024-04-24 15:01 | XMS_ITS | Encounter Summary ---
Author Organization 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) Procedures mFOLFOX6: (Fluorouracil / Leucovorin / Oxaliplatin) 14 Day Cycles Abbi Ventura MD [address] [place] [address] Phone: tel: fax: [facility] [address] [place] [phone] Phone: tel: Referral ID Status Reason Start Date Expiration Date Visits Re quested Visits Authorized [id number] Closed 01/31/2018 05/05/2019 1 18 Encounter Details Date Type Department Care Team (Late st Contact Info) Description 03/19/2018 9:45 AM RECRUITING TEAM LEAD Office Visit [facility] [address] [place] [address] Abbi Ventura MD [address] [facility] [address] [place] [address] Malignant neoplasm of descending colon [...] on file Legal Sex Female 1:06 AM RECRUITING TEAM LEAD Gender Identity Not on file Sexual Orientation Not on file documented as of this encounter Last Filed Vital Signs Vital Sign Reading Time Taken Comments Blood Pressure 139/87 03/19/2018 10:05 AM RECRUITING TEAM LEAD Pulse 128 03/19/2018 10:05 AM RECRUITING TEAM LEAD Temperature 36.8 ??C (98.3 ??F) 03/19/2018 10:[address] Respiratory Rate 18 03/19/2018 10:05 AM RECRUITING TEAM LEAD Oxygen Saturation 94% 03/19/2018 10:05 AM RECRUITING TEAM LEAD Inhaled Oxygen Concentration - - Weight 102.5 kg (226 lb) 03/19/2018 10:05 AM RECRUITING TEAM LEAD Height 172.7 cm (5' 8 ) 03/19/2018 10:05 AM RECRUITING TEAM LEAD Body Mass Index 34.36 03/19/2018 10:05 AM RECRUITING TEAM LEAD documented in this encounter Progress Notes * [...] Recent labs, radiology and pathology reviewed in [facility] ASSESSMENT: T4bN0 disease, Stage IIC colon adenocarcinoma: tolerated cycle 3 of FOLFOX well except for grade 1 fatigue, cold sensitivity and grade 2 diarrhea T2N0, 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 Neural Analyticssk panel is positive for BRCA2 mutation, and [...] she tolerates cycle 4 Abbi Ventura MD Leak Huntermanager transit Division of Oncology Section of Medical Oncology [facility] It Help Desk Technician completed by using [employer] Direct speaking software, therefore, transcriptionvariances may occur. UITING TEAM LEAD documented in this encounter Plan of Treatment Not on file documented as of this encounter Results * (ABNORMAL) Comprehensive metabolic panel (04/09/2018 10:12 AM RECRUITING TEAM LEAD) Sodium 138 135 - 145 mmol/L [facility] Potassium, pl 4.0 3.3 - 4.9 mmol/L [facility] Chloride 104 97 - 110 mmol/L [facility] CO2 23 22 - 32 mmol/L [facility] Anion gap 11 2 - 15 mmol/L [facility] BUN 23 8 - 25 mg/dL [facility] Creatinine 1.16(H) 0.60 - 1.10 mg/dL [facility] Glucose 201(H) 70 - 199 mg/dL [facility] Comment: Interpretive Data Fasting glucose >/= [...] 2017. Calcium 9.4 8.5 - 10.3 mg/dL [facility] Bilirubin, total 0.6 0.1 - 1.2 mg/dL [facility] Protein, pl 6.8 6.5 - 8.5 g/dL [facility] Albumin 4.1 3.5 - 5.0 g/dL [facility] Alk phos 94 40 - 130 Units/L [facility] ALT 30 7 - 45 Units/L [facility] AST 30 10 - 45 Units/L [facility] Blood specimen (specimen) 04/09/2018 10:12 AM RECRUITING TEAM LEAD 04/09/2018 10:20 AM RECRUITING TEAM LEAD Narrative [facility] - 04/09/2018 10:38 AM RECRUITING TEAM LEAD Abbi Ventura MD LAB BLOOD ORDERABLES Final Resul t Performing Organization Address [facility] de Phone Number [facility] Department [place] [address] * CEA (04/09/2018 10:12 AM RECRUITING TEAM LEAD) Pathologist [facility] CEA 4.2 0.0 - 5.0 ng/mL [facility] Comment: Interpretative Data: Reference Range: Non-Smokers: 0.0 - 5.0 ng/mL Smokers: 0.0 ? 6.5 ng/mL This test was developed and its performance characteristics determined by the [facility] in a manner consistent with CLIA requirements. This test has not been cleared or approved by the U.S. Food and Drug Administration. Current interpretive data was last revised 2018. Blood specimen (specimen) 04/09/2018 10:12 AM RECRUITING TEAM LEAD 04/09/2018 11:26 AM RECRUITING TEAM LEAD Narrative [facility] - 04/09/2018 12:05 PM RECRUITING TEAM LEAD Abbi Ventura MD LAB BLOOD ORDERABLES Final Resul t Performing Organization Address [facility] de Phone Number [facility] Department [place] [address] * (ABNORMAL) CBC with auto differential (04/09/2018 10:12 AM RECRUITING TEAM LEAD) Pathologist [facility] WBC 3.6(L) 3.8 - 9.9 K/cumm [facility] Hgb 10.8(L) 11.9 - 15.5 g/dL [facility] Hct 32.2(L) 35.6 - 45.5 % [facility] Plt 131(L) 150 - 400 K/cumm [facility] MPV 8.8(L) 9.1 - 12.3 fL [facility] RBC 3.44(L) 3.90 - 5.20 M/cumm [facility] MCV 93.6 81.3 - 96.4 fL [facility] MCH 31.4 27.1 - 33.3 pg [facility] MCHC 33.5 32.3 - 35.7 g/dL [facility] RDW CV 16.7(H) 11.1 - 14.9 % [facility] RDW SD 55.3(H) 35.7 - 48.1 fL [facility] NRBC abs 0.00 0.00 - 0.01 K/cumm [facility] Blood specimen (specimen) 04/09/2018 10:12 AM RECRUITING TEAM LEAD 04/09/2018 10:20 AM RECRUITING TEAM LEAD Narrative [facility] - 04/09/2018 10:23 AM RECRUITING TEAM LEAD Abbi Ventura MD LAB BLOOD ORDERABLES Final Resul t [facility] One [facility] Department [place] [address] documented in this encounter Visit Diagnoses Diagnosis [...] 04/09/2018 documented in this encounter Care Teams Aoc Director Combat Plans Officer Relationship Specialty Start Date End Date Ravi Smith MD PCP - General 11/04/17 09/27/21 Aft, Kianna Machado MD PhD [address] [place] [address] Surgeon Surgical Oncology 11/22/17 Santiago Gilbert MD [address] [place] [address] Hvac Tech Gastroenterology 11/22/17 documented as of this encounter
--- OUTSIDE RECORDS SUMMARY | 2024-04-24 15:01 | XMS_ITS | Encounter Summary ---
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) Procedures mFOLFOX6: (Fluorouracil / Leucovorin / Oxaliplatin) 14 Day Cycles Abbi Ventura MD 10 [facility] [address] [place] [address] Phone: tel: fax: [facility] [address] [place] [address] Phone: tel: Referral ID Status Reason Start Date Expiration Date Visits Re quested Visits Authorized [id number] Closed 01/31/2018 05/05/2019 18 Encounter Details Date Type Department Care Team (Latest Contact Info) Description 02/20/2018 9:45 AM CDT Clinical Support [facility] [address] [place] [address] Malignant neoplasm of descending colon (CMS/HCC); Malignant [...] on file Legal Sex Female 1:06 AM INVISIBLE BRACES ORTHODONTIST Gender Identity Not on file Sexual Orientation [...] [facility] Neutrophil pct 56.3 % [facility] Comment: Interpretive Data Percent cell count reference ranges are not reported, since discordance with absolute values may lead to misinterpretation of CBC data. Current Interpretive Data was last revised on 2017. Imm gran pct 0.5 % [facility] Comment: Interpretive Data Percent cell count reference ranges are not reported, since discordance with absolute values may lead to misinterpretation of CBC data. Current Interpretive Data was last revised on 2017. Lymphocyte pct 28.6 % [facility] Comment: Interpretive Data Percent cell count reference ranges are not reported, since discordance with absolute values may lead to misinterpretation of CBC data. Current Interpretive Data was last revised on 2017. Monocyte pct 8.7 % [facility] Comment: Interpretive Data Percent cell count reference ranges are not reported, since discordance with absolute values may lead to misinterpretation of CBC data. Current Interpretive Data was last revised on 2017. Eosinophil pct 4.7 % [facility] Comment: Interpretive Data Percent cell count reference ranges are not reported, since discordance with absolute values may lead to misinterpretation of CBC data. Current Interpretive Data was last revised on 2017. Basophil pct 1.2 % [facility] Comment: Interpretive Data Percent cell count reference ranges are not reported, since discordance with absolute values may lead to misinterpretation of CBC data. Current Interpretive Data was last revised on 2017. Blood specimen (specimen) 02/20/2018 9:46 AM CDT 02/20/2018 9:59 AM CDT Narrative [facility] - 02/20/2018 10:04 AM CDT us Abbi Ventura MD LAB BLOOD ORDERABLES Final Resul t [facility] One [facility] Department [place] [address] * (ABNORMAL) CBC with auto differential (02/20/2018 9:46 AM CDT) WBC 4.3 3.8 - 9.9 K/cumm [facility] Hgb 10.5(L) 11.9 - 15.5 g/dL [facility] Hct 31.8(L) 35.6 - 45.5 % [facility] Plt 114(L) 150 - 400 K/cumm [facility] MPV 9.4 9.1 - 12.3 fL [facility] RBC 3.49(L) 3.90 - 5.20 M/cumm [facility] MCV 91.1 81.3 - 96.4 fL [facility] MCH 30.1 27.1 - 33.3 pg [facility] MCHC 33.0 32.3 - 35.7 g/dL [facility] RDW CV 13.9 11.1 - 14.9 % [facility] RDW SD 46.4 35.7 - 48.1 fL [facility] NRBC abs 0.00 0.00 - 0.01 K/cumm [facility] Blood specimen (specimen) 02/20/2018 9:46 AM CDT 02/20/2018 9:59 AM CDT Narrative [facility] - 02/20/2018 10:04 AM CDT us Abbi Ventura MD LAB BLOOD ORDERABLES Final Resul t [facility] One [facility] Department [place] [address] * (ABNORMAL) Comprehensive metabolic panel (02/20/2018 9:46 AM CDT) Sodium 143 135 - 145 mmol/L [facility] Potassium, pl 3.6 3.3 - 4.9 mmol/L [facility] Chloride 107 97 - 110 mmol/L [facility] CO2 26 22 - 32 mmol/L [facility] Anion gap 10 2 - 15 mmol/L [facility] BUN 11 8 - 25 mg/dL [facility] Creatinine 0.85 0.60 - 1.10 mg/dL [facility] Glucose 243(H) 70 - 199 mg/dL [facility] Comment: Interpretive Data Fasting glucose >/= [...] Calcium 8.9 8.5 - 10.3 mg/dL [facility] Bilirubin, total 0.2 0.1 - 1.2 mg/dL [facility] Protein, pl 6.5 6.5 - 8.5 g/dL [facility] Albumin 3.9 3.5 - 5.0 g/dL [facility] Alk phos 74 40 - 130 Units/L [facility] ALT 16 7 - 45 Units/L [facility] AST 22 10 - 45 Units/L [facility] Blood specimen (specimen) 02/20/2018 9:46 AM CDT 02/20/2018 9:59 AM CDT Narrative [facility] - 02/20/2018 10:24 AM CDT us Abbi Ventura MD LAB BLOOD ORDERABLES Final Resul t [facility] One [facility] Department [place] [address] documented in this encounter Visit Diagnoses Diagnosis 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) Malignant neoplasm 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, estrogen receptor negative (HCC) documented in this encounter Orders Appointment Requests Count Last Ordered Date Fi rst Ordered Date ONCBCN LAB APPOINTMENT 1 02/20/2018 documented in this encounter Care Teams Embedded Engineer Relationship Specialty Start Date End Date Ravi Smith MD PCP - General 11/04/17 09/27/21 Aft, Kianna Machado MD PhD [address] [place] [address] Surgeon Surgical Oncology 11/22/17 Santiago Gilbert MD [address] [place] [address] Cytogenetic Technician Gastroenterology 11/22/17 documented as of this encounter
--- OUTSIDE RECORDS SUMMARY | 2024-04-24 15:01 | XMS_ITS | Encounter Summary ---
Author Organization [facility] Address [address] [place] [address] Care Team Providers Care Crimping Press Operator Name Role Phone Ravi Smith MD Primary Care Provider [phone] Aft, Kianna Machado MD PhD Unavailable [phone] Santiago Gilbert MD Unavailable [phone] Encounter Details Date Type Department Care Team (Late st Contact Info) Description 03/14/2018 Telephone [facility] ([facility]) [address] [place] [id number] [place] [address] [place] [address] [phone] [place], [place] [id number] Social History Tobacco Use Types Packs/Day Years Used Date Smoking Tobacco: Former Cigarettes 2015 Smokeless Tobacco: Never Alcohol Use Standard Drinks/Week Comments Yes 0 (1 standard drink = 0.6 oz pur e alcohol) socially Comments No Sex and Gender Information Value Date Recorded Sex Assigned at Not on file Legal Sex Female 1:06 AM DIPLOMATIC OFFICER Gender Identity Not on file Sexual Orientation Not on file documented as of this encounter Miscellaneous Notes * Telephone Encounter - Fatemeh Zarate RN - 03/14/2018 1:52 PM CST Already addressed this morning. Lomotil was called in and pt came in for IVF. DB OMATIC OFFICER * Telephone Encounter - Abbi Ventura MD - 03/14/2018 1:28 PM CST Can you call patient and see how she is doing? Ask her if she wants to try Lomotil. OMATIC OFFICER * Telephone Encounter - Sweetie Claderon NP - 03/14/2018 2:48 AM CST Patient [...] not get along with the oxaliplatin . OMATIC OFFICER documented in this encounter Plan of Treatment Not on file documented as of this encounter Visit Diagnoses Not on filedocumented in this encounter Care Teams Crimping Press Operator Relationship Specialty Start Date End Date Ravi Smith MD PCP - General 11/04/17 09/27/21 Aft, Kianna Machado MD PhD [address] [place] [address] Surgeon Surgical Oncology 11/22/17 Santiago Gilbert MD [address] [place] [address] Picture Framer Gastroenterology 11/22/17 documented as of this encounter
--- OUTSIDE RECORDS SUMMARY | 2024-04-24 15:01 | XMS_ITS | Encounter Summary ---
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) Procedures mFOLFOX6: (Fluorouracil / Leucovorin / Oxaliplatin) 14 Day Cycles Abbi Ventura MD [address] [place] [address] Phone: tel: fax: [facility] [address] [place] [address] Phone: tel: Referral ID Status Reason Start Date Expiration Date Visits Re quested Visits Authorized [id number] Closed 01/31/2018 05/05/2019 1 18 Encounter Details Date Type Department Care Team (Late st Contact Info) Description 03/06/2018 11:00 AM CDT Office Visit [facility] [address] [place] [address] Abbi Ventura MD [address] [facility] [address] [place] [address] Malignant neoplasm of descending colon (CMS/HCC) (Primary [...] on file Legal Sex Female 1:06 AM HYDRAULIC MECHANIC Gender Identity Not on file Sexual [...] positive and VUS in BRIP1 and NBN. Comeet My risk showed no mutation in MLH [...] negative left breast cancer with positive margin. [facility] panel is positive for BRCA2 mutation, and VUS in BRIP1 and NBN Depression/anxiety: follow up with Dr. Simms PLAN: Cycle 3 FOLFOX today with oxaliplatin at 25% reduced dose given severity of motor neuropathy RTC in 2 weeks to see me before cycle 4 of FOLFOX If she again has severe motor neuropathy we will discontinue oxaliplatin Abbi Ventura MD Transportation Solutions Managerit risk and assurance manager Division of Oncology Section of Medical Oncology [facility] Wildlife Conservation Officer completed by using M*Modal Fluency Direct speaking software, therefore, transcriptionvariances may occur. AULIC MECHANIC AULIC MECHANIC documented in this encounter Plan of Treatment Not on file documented as of this encounter Results * (ABNORMAL) Comprehensive metabolic panel (03/19/2018 9:23 AM HYDRAULIC MECHANIC) Sodium 139 135 - 145 mmol/L [facility] [...] Glucose 234(H) 70 - 199 mg/dL [facility] Comment: Interpretive Data Fasting glucose >/= [...] BJ Blood specimen (specimen) 03/19/2018 9:23 AM HYDRAULIC MECHANIC 03/19/2018 9:24 AM HYDRAULIC MECHANIC Narrative [employer] [facility] - 03/19/2018 9:47 AM HYDRAULIC MECHANIC Abbi Ventura MD LAB BLOOD ORDERABLES Final Resul t Performing Organization Address [facility] de Phone Number [facility] [place] [address] * CEA (03/19/2018 9:23 AM HYDRAULIC MECHANIC) Pathologist [facility] CEA 4.8 0.0 - 5.0 ng/mL [facility] Comment: Interpretative Data: Reference Range: Non-Smokers: 0.0 - 5.0 ng/mL Smokers: 0.0 ? 6.5 ng/mL This test was developed and its performance characteristics determined by the [facility] in a manner consistent with CLIA requirements. This test has not been cleared or approved by the U.S. Food and Drug Administration. Current interpretive data was last revised 2018. Blood specimen (specimen) 03/19/2018 9:23 AM HYDRAULIC MECHANIC 03/19/2018 10:37 AM HYDRAULIC MECHANIC Narrative [facility] - 03/19/2018 11:25 AM HYDRAULIC MECHANIC Abbi Ventura MD LAB BLOOD ORDERABLES Final Resul t Performing Organization Address [facility] de Phone Number [facility] [place] [address] * (ABNORMAL) CBC with auto differential (03/19/2018 9:23 AM HYDRAULIC MECHANIC) WBC 3.6(L) 3.8 - 9.9 K/cumm [facility] Hgb 12.4 11.9 - 15.5 g/dL [facility] Hct 35.5(L) 35.6 - 45.5 % [facility] Plt 121(L) 150 - 400 K/cumm [facility] MPV 9.0(L) 9.1 - 12.3 fL [facility] RBC 4.02 3.90 - 5.20 M/cumm [facility] MCV 88.3 81.3 - 96.4 fL [facility] MCH 30.8 27.1 - 33.3 pg [facility] MCHC 34.9 32.3 - 35.7 g/dL [facility] RDW CV 14.4 11.1 - 14.9 % [facility] RDW SD 44.1 35.7 - 48.1 fL [facility] NRBC abs 0.05(H) 0.00 - 0.01 K/cumm [facility] Blood specimen (specimen) 03/19/2018 9:23 AM HYDRAULIC MECHANIC 03/19/2018 9:24 AM HYDRAULIC MECHANIC Narrative [facility] - 03/19/2018 9:27 AM HYDRAULIC MECHANIC us Abbi Ventura MD LAB BLOOD ORDERABLES Final Resul t [facility] One [facility] Department [place] [address] documented in this encounter Visit Diagnoses Diagnosis [...] 03/19/2018 documented in this encounter Care Teams Handstitching Machine Armhole Feller Relationship Specialty Start Date End Date Ravi Smith MD PCP - General 11/04/17 09/27/21 Aft, Kianna Machado MD PhD [address] [place] [address] Surgeon Surgical Oncology 11/22/17 Santiago Gilbert MD [address] [place] [address] Student Finance Specialist Gastroenterology 11/22/17 documented as of this encounter
--- OUTSIDE RECORDS SUMMARY | 2024-04-24 15:01 | XMS_ITS | Encounter Summary ---
Author Organization [facility] Healthcare Address [address] [place] [address] Care Team Providers Care Manager Graphic Name Role Phone Ravi Smith MD Primary Care Provider [phone] Aft, Kianna Machado MD PhD Unavailable [phone] Santiago Gilbert MD Unavailable [phone] Reason for Visit * Reason Comments AD (Adjustment Disorder) Encounter Details Date Type Department Care Team (Late st Contact Info) Description 03/06/2018 1:00 PM CDT Clinical Support [address] [address] Margarita Simms, PhD [address] [place] [address] Social History Tobacco Use Types Packs/Day Years Used Date Smoking Tobacco: Former Cigarettes 2015 Smokeless Tobacco: Never Alcohol Use Standard Drinks/Week Comments Yes 0 (1 standard drink = 0.6 oz pur e alcohol) socially Comments No Sex and Gender Information Value Date Recorded Sex Assigned at Not on file Legal Sex Female 1:06 AM 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 The patient will follow-up on 03/20/2018 LE ROLLER documented in this encounter Plan of Treatment Not on file documented as of this encounter Visit Diagnoses Not on filedocumented in this encounter Care Teams Manager Graphic Relationship Specialty Start Date End Date Ravi Smith MD PCP - General 11/04/17 09/27/21 Aft, Kianna Machado MD PhD [address] [place] [address] Surgeon Surgical Oncology 11/22/17 Santiago Gilbert MD [address] [place] [address] Barrel Bridge Assembler Gastroenterology 11/22/17 documented as of this encounter
--- OUTSIDE RECORDS SUMMARY | 2024-04-24 15:01 | XMS_ITS | Encounter Summary ---
Author Organization [facility] Address [address] [place] [address] Phone Care Team Providers Care Biodiesel Plant Operations Engineer Name Role Phone Ravi Smith MD Primary Care Provider [phone] Aft, Kianna Machado MD PhD Unavailable [phone] Santiago Gilbert MD Unavailable [phone] Encounter Details Date Type Department Care Team (Late st Contact Info) Description 02/24/2018 Orders Only [facility] [address] [place] [address] Abib Ventura MD [address] [facility] [address] [place] [address] Malignant neoplasm of descending colon (CMS/HCC) (Primary [...] on file Legal Sex Female 1:06 AM BULB FILLER Gender Identity Not on file Sexual Orientation Not on file documented as of this encounter Plan of Treatment Not on file documented as of this encounter Visit Diagnoses Diagnosis 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
--- OUTSIDE RECORDS SUMMARY | 2024-04-24 15:01 | XMS_ITS | Encounter Summary ---
Author Organization [facility] Address [address] [place] [address] Phone Care Team Providers Care Carburetor Specialist Name Role Phone Ravi Smith MD Primary Care Provider [phone] Aft, Kianna Machado MD PhD Unavailable [phone] Santiago Gilbert MD Unavailable [phone] Encounter Details Date Type Department Care [...] on file Legal Sex Female 1:06 AM VP AD PRODUCTS AND PLANNING Gender Identity Not on file Sexual [...] on filedocumented in this encounter Care Teams Carburetor Specialist Relationship Specialty Start Date End Date Ravi Smith MD PCP - General 11/04/17 09/27/21 Aft, Kianna Machado MD PhD [address] [place] [address] Surgeon Surgical Oncology 11/22/17 Santiago Gilbert MD [address] [place] [address] Abe Teacher Gastroenterology 11/22/17 documented as of this encounter
--- OUTSIDE RECORDS SUMMARY | 2024-04-24 15:01 | XMS_ITS | Encounter Summary ---
Author Organization [facility] Healthcare Address [address] [place] [address] Care Team Providers Care Oil Burner Technician Name Role Phone Ravi Smith MD Primary Care Provider [phone] Aft, Kianna Machado MD PhD Unavailable [phone] Santiago Gilbert MD Unavailable [phone] Encounter Details Date Type Department Care Team (Latest Contact Info) Description 03/07/2018 4:22 PM CDT - 03/07/2018 11:59 PM CDT Hospital Encounter [facility] [address] [place] [address] Discharge Disposition: Discharge to home or self [...] only and have not been reviewed by [facility]. ??There will be no report generated by a [facility] Radiologist. Narrative 03/07/2018 4:22 PM CDT EXAMINATION: ??Images For Reference Purposes Only us Abbi Ventura MD IMG CT PROCEDURES Final Result documented in this encounter Visit Diagnoses Not on filedocumented in this encounter Care Teams Oil Burner Technician Relationship Specialty Start Date End Date Ravi Smith MD PCP - General 11/04/17 09/27/21 Aft, Kianna Machado MD PhD [address] [place] [address] Surgeon Surgical Oncology 11/22/17 Santiago Gilbert MD [address] [place] [address] Ratoprinter Gastroenterology 11/22/17 documented as of this encounter
--- OUTSIDE RECORDS SUMMARY | 2024-04-24 15:01 | XMS_ITS | Encounter Summary ---
Author Organization [facility] Address [address] [place] [address] Phone Care Team Providers Care Manager Philosophy Name Role Phone Ravi Smith MD Primary Care Provider [phone] Aft, Kianna Machado MD PhD Unavailable [phone] Santiago Gilbert MD Unavailable [phone] Encounter Details Date Type Department Care Team (Late st Contact Info) Description 03/07/2018 Telephone [facility] [address] [place] [phone] Fatemeh Zarate, RN Social History Tobacco Use Types Packs/Day Years Used Date Smoking Tobacco: Former Cigarettes 2015 Smokeless Tobacco: Never Alcohol Use Standard Drinks/Week Comments Yes 0 (1 standard drink = 0.6 oz pur e alcohol) socially Comments No Sex and Gender Information Value Date Recorded Sex Assigned at Not on file Legal 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 PS [phone] Simms as well. PS 02/25/18 Demi apt 03/06/18 with ROV. Victoria in IMM talking to Dr. Ventura today at [facility] about skin test vs desensitizing. PS 02/26/18 - email from immunology: Per Dr. Francisco, please add new patient, Aleah Gerber - 59 at [facility] for March 03at 1:00. In the appointment [...] Request for disc faxed to [facility] ([facility]). PS 03/04/18 Follow up to see if CD has been received. DB 03/07/18 [facility]. DB documented in this encounter Plan of Treatment Not on file documented as of this encounter Visit Diagnoses Not on filedocumented in this encounter Care Teams Manager Philosophy Relationship Specialty Start Date End Date Ravi Smith MD PCP - General 11/04/17 09/27/21 Aft, Kianna Machado MD PhD [address] [place], [place] [address] Surgeon Surgical Oncology 11/22/17 Santiago Gilbert MD [address] [place] [address] Client Support Professional Gastroenterology 11/22/17 documented as of this encounter
--- OUTSIDE RECORDS SUMMARY | 2024-04-24 15:01 | XMS_ITS | Encounter Summary ---
Author Organization 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) Procedures mFOLFOX6: (Fluorouracil / Leucovorin / Oxaliplatin) 14 Day Cycles Abbi Ventura MD [facility] [address] [place] [address] Phone: tel: fax: [facility] [address] [place] [phone] Phone: tel: Referral ID Status Reason Start Date Expiration Date Visits Re quested Visits Authorized [id number] Closed 01/31/2018 05/05/2019 1 18 Encounter Details Date Type Department Care Team (Late st Contact Info) Description 02/20/2018 10:15 AM CDT Office Visit [facility] [address] [place] [address] Abbi Ventura MD [address] [place] [address] Malignant neoplasm of descending colon (CMS/HCC); Malignant [...] positive and VUS in BRIP1 and NBN. Pathflow showed no mutation in MLH 1 or [...] Recent labs, radiology and pathology reviewed in [facility] ASSESSMENT: T4bN0 disease, Stage IIC [...] called 911. She was sent byambulance to [facility] for stroke protocol. 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 Though rare, I have seen couple of patients over the years. PCP notified. Abbi Ventura MD Hairspring Assemblerhousehold chores Division of Oncology Section of Medical Oncology [facility] Logistics Coordinator completed by using M*Modal Fluency Direct speaking [...] CO2 25 22 - 32 mmol/L [facility] Anion gap 9 2 - 15 mmol/L [facility] BUN 22 8 - 25 mg/dL [facility] Creatinine 0.89 0.60 - 1.10 mg/dL [facility] Glucose 176 70 - 199 mg/dL [facility] Comment: Interpretive Data Fasting glucose [...] 2017. Calcium 9.2 8.5 - 10.3 mg/dL [facility] Bilirubin, total 0.4 0.1 - 1.2 mg/dL [facility] Protein, pl 6.6 6.5 - 8.5 g/dL [facility] Albumin 4.1 3.5 - 5.0 g/dL [facility] Alk phos 84 40 - 130 Units/L [facility] ALT 20 7 - 45 Units/L [facility] AST 21 10 - 45 Units/L [facility] Blood specimen (specimen) 03/06/2018 10:38 AM CDT 03/06/2018 10:39 AM CDT Narrative [facility] - 03/06/2018 11:00 AM CDT us Abbi Ventura MD LAB BLOOD ORDERABLES Final Resul t [facility] [place] [address] * (ABNORMAL) CBC with auto differential (03/06/2018 10:38 AM CDT) WBC 7.6 3.8 - 9.9 K/cumm [facility] Hgb 11.3(L) 11.9 - 15.5 g/dL [facility] Hct 33.4(L) 35.6 - 45.5 % [facility] Plt 107(L) 150 - 400 K/cumm [facility] MPV 9.2 9.1 - 12.3 fL [facility] RBC 3.75(L) 3.90 - 5.20 M/cumm [facility] MCV 89.1 81.3 - 96.4 fL [facility] MCH 30.1 27.1 - 33.3 pg [facility] MCHC 33.8 32.3 - 35.7 g/dL [facility] RDW CV 13.4 11.1 - 14.9 % [facility] RDW SD 43.2 35.7 - 48.1 fL [facility] NRBC abs 0.00 0.00 - 0.01 K/cumm [facility] Blood specimen (specimen) 03/06/2018 10:38 AM CDT 03/06/2018 10:39 AM CDT Narrative [facility] - 03/06/2018 10:44 AM CDT us Abbi Ventura MD LAB BLOOD ORDERABLES Final Resul t [facility] [place] [address] documented in this encounter Visit Diagnoses Diagnosis [...] 03/06/2018 documented in this encounter Care Teams Traffic Manager Relationship Specialty Start Date End Date Ravi Smith MD PCP - General 11/04/17 09/27/21 Aft, Kianna Machado MD PhD [address] [place] [address] Surgeon Surgical Oncology 11/22/17 Santiago Gilbert MD [address] [facility] [place] [address] Senior Drafter Gastroenterology 11/22/17 documented as of this encounter
--- OUTSIDE RECORDS SUMMARY | 2024-04-24 15:01 | XMS_ITS | Encounter Summary ---
Author Organization [facility] Address [address] [place] [address] Phone Care Team Providers Care Spring Layer Name Role Phone Ravi Smith MD Primary Care Provider [phone] Aft, Kianna Machado MD PhD Unavailable Santiago Gilbert MD Unavailable [phone] Encounter Details Date Type Department Care Team (Late st Contact Info) Description 03/18/2018 Telephone [facility] [address] [place] [phone] Fatemeh Zarate, RN Social History Tobacco Use Types Packs/Day Years Used Date Smoking Tobacco: Former Cigarettes 2015 Smokeless Tobacco: Never Alcohol Use Standard Drinks/Week Comments Yes 0 (1 standard drink = 0.6 oz pur e alcohol) socially Comments No Sex and Gender Information Value Date Recorded Sex Assigned at Not on file Legal Sex Female 1:06 AM STORE OPERATIONS SPECIALIST Gender Identity Not on file [...] dizziness. I asked pt to come into [facility] today for orthostatic b/p to assess hydration status, for IVF and so that we can obtain stool sample for c-diff and stool culture. Patient said she cannot get a ride to [facility] today and she is scheduled to see Dr. Ventura tomorrow. DB E OPERATIONS SPECIALIST documented in this encounter Plan of Treatment Not on file documented as of this encounter Visit Diagnoses Not on filedocumented in this encounter Care Teams Spring Layer Relationship Specialty Start Date End Date Ravi Smith MD PCP - General 11/04/17 09/27/21 Aft, Kianna Machado MD PhD [address] [place] [address] Surgeon Surgical Oncology 11/22/17 Santiago Gilbert MD [address] [place] [address] Metallurgy Laboratory Technician Gastroenterology 11/22/17 documented as of this encounter
--- OUTSIDE RECORDS SUMMARY | 2024-04-24 15:01 | XMS_ITS | Encounter Summary ---
Author Organization [facility] Address [address] [place] [address] Phone Care Team Providers Care Advertising Assistant Name Role Phone Ravi Smith MD Primary Care Provider [phone] Aft, Kianna Machado MD PhD Unavailable [phone] Santiago Gilbert MD Unavailable [phone] Encounter Details Date Type Department Care Team (Late st Contact Info) Description 03/14/2018 Orders Only [facility] [address] [place] [address] Abbi Ventura MD [address] [facility] [address] [place] [address] Hypokalemia (Primary Dx) Social History Tobacco Use Types Packs/Day Years Used Date Smoking Tobacco: Former Cigarettes 2015 Smokeless Tobacco: Never Alcohol Use Standard Drinks/Week Comments Yes 0 (1 standard drink = 0.6 oz pur e alcohol) socially Comments No Sex and Gender Information Value Date Recorded Sex Assigned at Not on file Legal 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
--- OUTSIDE RECORDS SUMMARY | 2024-04-24 15:01 | XMS_ITS | Encounter Summary ---
Author Organization [facility] Address [address] [place] [address] Phone Care Team Providers Care Manager Of Supply Chain Name Role Phone Ravi Smith MD Primary Care Provider [phone] Aft, Kianna Machado MD PhD Unavailable [phone] Santiago Gilbert MD Unavailable [phone] Encounter Details Date Type Department Care Team (Late st Contact Info) Description 02/24/2018 Orders Only [facility] [address] [place] [address] Abbi Ventura MD [address] [facility] [address] [place] [address] Malignant neoplasm of descending colon (CMS/HCC) (Primary [...] on file Legal Sex Female 1:06 AM CIVIL 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 Gender Identity Not on file Sexual Orientation Not on file documented as of this encounter Plan of Treatment Not on file documented as of this encounter Visit Diagnoses Diagnosis 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
--- OUTSIDE RECORDS SUMMARY | 2024-04-24 15:01 | XMS_ITS | Encounter Summary ---
Author Organization 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 Oncology [address] [place] [phone] Phone: tel: Referral ID Status Reason Start Date Expiration Date Visits Re quested Visits Authorized [id number] Closed 01/31/2018 05/05/2019 1 18 Encounter Details Date Type Department Care Team (Late st Contact Info) Description 02/20/2018 11:[address] [facility] Oncology [address] [place] [address] Malignant neoplasm of descending colon (CMS/HCC) (Primary [...] on file Legal Sex Female 1:06 AM SOLUTION MIXER Gender Identity Not on file Sexual [...] right sided weakness. EMS took pt to [facility] [place]. Pt will call team tomorrow to inquire [...] over 2 Hours, Once, On [facility] 02/20/18 at 1230, For 1 dose, Run concurrently with leucovorin. Use D5W as back up fluid during oxaliplatin, and flush line with D5W before and after oxaliplatin infusion Irritant wih vesicant potential. Flush line with [id number]:Malignant neoplasm of descending colon (CMS/HCC) (HCC) New [...] 02/20/2018 documented in this encounter Care Teams Paperhanger And Painter Relationship Specialty Start Date End Date Ravi Smith MD PCP - General 11/04/17 09/27/21 Aft, Kianna Machado MD PhD [address] [place] [address] Surgeon Surgical Oncology 11/22/17 Santiago Gilbert MD [address] [place] [address] Compliance Spec Gastroenterology 11/22/17 documented as of this encounter
--- OUTSIDE RECORDS SUMMARY | 2024-04-24 15:02 | XMS_ITS | Encounter Summary ---
Author Organization [facility] Address [address] [place] [address] Care Team Providers Care Investigative Analyst Name Role Phone Ravi Smith MD Primary Care Provider [phone] Aft, Kianna Machado MD PhD Unavailable [phone] Santiago Gilbert MD Unavailable [phone] Encounter Details Date Type Department Care Team (Late st Contact Info) Description 01/14/2018 2:52 PM CDT Anesthesia Event [facility] ([facility]) [address] [place] [address] Antony Linares MD [address] [place] [address] Meche Borjas NP [address] [facility] [id number] [place] [address] Anesthesia Record Procedure Summary Procedure Name Responsible [...] file Legal Sex Female 1:06 AM GAS APPLIANCE 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 Gender Identity Not on file Sexual Orientation Not on file documented as of this encounter OR Notes * Anesthesia Postprocedure Evaluation - Antony Linares MD - 01/14/2018 7:23 PM CDT Patient: Aleah Gerber Procedure Summary Date: 01/14/18 Room / Location: [facility] CAM OR POD 4 ROOM F / [facility] CAM OR POD 4 Anesthesia Start: 1451 Anesthesia Stop: 1725 Procedures: Biopsy Breast Needle Localization (Left Breast) Biopsy [place] Lymph Node With Lymphoscintigraphy (Left Chest) Insertion [...] for airway management: anesthesia Staff: Placed by: DIRECTOR SHOPPER MARKETING: CHALO LUCAS Emergent airway documentation: Risks and [...] female Procedure(s): Biopsy Breast Needle Localization Biopsy [place] Lymph Node With Lymphoscintigraphy Insertion Port A [...] Cardiovascular Pertinent negatives: hypertension ; CAD ; SD ; CABG ; valvular heart disease; valve [...] Medication protocol when under care of a DIRECTOR SHOPPER MARKETING Planned anesthesia: General Induction: Induction: intravenous. Postoperative Plan: Postoperative administration opioids intended. No postoperative mechanical ventilation intended. Patient's planned disposition post procedure is Outpatient. Informed Consent: Discussed plan with DIRECTOR SHOPPER MARKETING. Anesthesia plan and risks discussed with patient. [...] Procedure Name Priority Date/Time Associated Diagnosis Comments SC AN PROCEDURE PLACEHOLDER Routine 01/14/2018 3:06 PM CDT Procedure Note - Chalo Lucas CRNA - 01/14/2018 3:06 PM CDTThis note is in progress. Airway Patient location: OR Urgency: elective Date/time: 01/14/2018 3:06 PM Indications for airway management: anesthesia Staff: Placed by: DIRECTOR SHOPPER MARKETING: CHALO LUCAS Emergent airway documentation: Risks and benefits discussed: yes Consent obtained: yes Consent given by: patient Airway prep: Preoxygenated: yes Mask difficulty assessment: 0 - not attempted Spontaneous ventilation during airway: present Sedation level during airway: deep Final airway details: Final airway type: supraglottic airway Final supraglottic airway: IGel SGA size: 5 Number of attempts: 1 SC AN ELECTIVE SUPRAGLOTTIC AIRWAY Routine 01/14/2018 3:06 PM CDT Procedure Note - Chalo Lucas CRNA - 01/14/2018 3:06 PM CDTThis note is in progress. Airway Patient location: OR Urgency: elective Date/time: 01/14/2018 3:06 PM Indications for airway management: anesthesia Staff: Placed by: DIRECTOR SHOPPER MARKETING: CHALO LUCAS Emergent airway documentation: Risks and [...] 01/14/2018 documented in this encounter Care Teams Investigative Analyst Relationship Specialty Start Date End Date Ravi Smith MD PCP - General 11/04/17 09/27/21 Aft, Kianna Machado MD PhD [address] [place] [address] Surgeon Surgical Oncology 11/22/17 Santiago Gilbert MD [address] [place] [address] Seismograph Chief Gastroenterology 11/22/17 documented as of this encounter
--- OUTSIDE RECORDS SUMMARY | 2024-04-24 15:02 | XMS_ITS | Encounter Summary ---
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) Procedures mFOLFOX6: (Fluorouracil / Leucovorin / Oxaliplatin) 14 Day Cycles Abbi Ventura MD [address] [place] [address] [address] [place] [address] Phone: tel: fax: [facility] Oncology [address] [place] [phone] Phone: tel: Referral ID Status Reason Start Date Expiration Date Visits Re quested Visits Authorized [id number] Closed 01/31/2018 05/05/2019 1 18 Encounter Details Date Type Department Care Team (Late st Contact Info) Description 02/06/2018 10:30 AM CDT Infusion [facility] Oncology [address] [place] [address] Malignant neoplasm of descending colon (CMS/HCC) (Primary [...] on file Legal Sex Female 1:06 AM SUBSTANCE ABUSE RN Gender Identity Not on file Sexual Orientation [...] 02/06/18 at 1500, FOR PUMP PROBLEMS CALL [phone] IrritantIndications:Malig nant neoplasm of descending colon (CMS/HCC) [...] Irritant wih vesicant potential. Flush line with [id number]:Malignant neoplasm of descending colon (CMS/HCC) (HCC) New [...] 02/06/2018 documented in this encounter Care Teams Tank Truck Milk Receiver Relationship Specialty Start Date End Date Ravi Smith MD PCP - General 11/04/17 09/27/21 Aft, Kianna Machado MD PhD [address] [place] [address] Surgeon Surgical Oncology 11/22/17 Santiago Gilbert MD [address] [place] [address] Front Office Help Gastroenterology 11/22/17 documented as of this encounter
--- OUTSIDE RECORDS SUMMARY | 2024-04-24 15:02 | XMS_ITS | Encounter Summary ---
Author Organization [facility] Healthcare Address [address] [place] [address] Care Team Providers Care Pulmonology Physician Name Role Phone Ravi Smith MD Primary Care Provider [phone] Kianna Bunch MD PhD Unavailable Santiago Gilbert MD Unavailable [phone] Encounter Details Date Type Department Care Team (Late st Contact Info) Description 01/14/2018 2:26 PM CDT - 01/14/2018 4:11 PM CDT Surgery [facility] ([facility]) [address] [place] [address] Kianna Bunch MD PhD [address] [place] [address] Biopsy Breast Needle Localization Surgery Details Date/Time Status Location OR Service Patient Class Case Cl ass Case Type Trauma Case? 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 8.4 mL 12/31/2017 8 BREO ELLIPTA 100-25 mcg/dose diskus [...] as needed (constipation). 30 packet 01/06/2018 9 sertraline (ZOLOFT) 50 mg tabletIndication s:Anxiety with Depression nightly. 11/07/2017 8 acetaminophen (TYLENOL) 325 mg tablet Take 2 tablets (650 mg total) by mouth every 6 (six) hours as needed for pain. 30 tablet 12/31/2017 8 cephalexin (KEFLEX) 500 mg capsule Take 1 capsule (500 mg total) by mouth 2 (two) times a day for 5 days. 10 capsule 01/14/2018 8 bisacodyl EC (DULCOLAX EC) 5 mg EC tabletIndication s:constipation Take 1 tablet (5 mg total) by mouth 2 (two) times a day as needed for constipation. 30 tablet 01/06/2018 9 psyllium 0.52 gram capsuleIndicatio ns:constipation Take 1 capsule (0.52 g total) by mouth daily. In case of constipation 30 capsule 11 12/31/2017 9 documented as of this encounter Ordered [...] MD Breast Surgical Oncology Fellow Pager #: [phone] 01/14/2018 8:31 AM Cosigned by Kianna Bunch [...] Breast Needle Localization partial mastectomy (L), Biopsy [place] Lymph Node With Lymphoscintigraphy (L), Insertion Port [...] She was then taken to the Breast [facility] where she underwent needle localization of [...] and was sent back to the Breast [facility]. Specimen radiograph demonstrated that the cancer was [...] Assisting: Allyson Ga MD (fellow) Surgical Team: Heel Turner: Cat Boss RN Heel Turner Relief: Maldonado Parks RN Scrub: Omayra Guzmán RN DATE OF SURGERY : 01/14/2018 Preoperative Diagnosis: Pre-op Diagnosis * Malignant neoplasm of left female breast, unspecified estrogen receptor status, unspecified site of breast (CMS/HCC) [C50.912] Postoperative Diagnosis: Post-op Diagnosis * Malignant neoplasm of left female breast, unspecified estrogen receptor status, unspecified site of breast (CMS/HCC) [C50.912] Procedure: Procedure(s): Biopsy Breast Needle Localization Biopsy [place] Lymph Node With Lymphoscintigraphy Insertion Port A [...] Implant Name Type Inv. Item Serial No. Dining Room Attendant Cafeteria Lot No. [id number] No. Used [employer] [id number] POWERPORT CLEARVUE AIRGUARD 8FR 1 LUMEN LIGHTWEIGHT INTERMEDIATE LATEX FREE - [id number] Other - see comments [employer] [id number] POWERPORT CLEARVUE AIRGUARD 8FR 1 LUMEN LIGHTWEIGHT INTERMEDIATE LATEX FREE [employer] [id number] Right 1 Blood/Blood Products Transfused: 0 mls Complications: None Condition on Discharge from the operating room was stable Allyson Ga MD Date: 01/14/2018 Time: 5:26 PM No Resident involved on case Cosigned by Kianna Bunch MD PhD at 01/15/2018 12:14 PM CDT * Pre-Procedure Instructions - Lori Alarcon, KAM - 01/09/2018 10:55 AM CDT Center for Preoperative Assessment and Planning CPAP Clinic Location: [facility] The night before your surgery: * [...] your surgery: Vitamin E, Fish Oil ([place], [place] 3), Herbal medicines, Diet Pills ?? If [...] 4:28 PM CDT Comment:Breast Center Narrative PATHOLOGY [facility] - 01/17/2018 4:28 PM CDT EPIC results best viewed via link to PDF [facility] [place] [address] SURGICAL PATHOLOGY REPORT FINAL Patient Name: ?? ALEAH GERBER Gender: ??F : ??1955 (Age: 62) Address: ??[address] [place], [place] ??[address] Hospital #: ??[id number] Taken:01/14/2018 Received:01/14/2018 Reported: 01/17/2018 Patient Type: [facility] SDS ?? Service: Surgery Location: [facility] Physician(s): ??Hortencia Warren M.D. Diagnosis: A. [...] for permanents, by Tito Jones MLT, [facility] Microscopic Description and Comment: The result [...] and 2 cm from the medial edge. ??Ice Cream Freezer Assistant sections as follows: B1-B2 closest medial edge, [...] with wire-guided localization ? Lymph node sampling: ?[place] lymph node(s) ? Tumor site invasive carcinoma: ?9 o'clock ? 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 Tumor size: ?Greatest dimension: 35mm ? Histologic grade ([place] Histologic Score): ?Tubular differentiation: ??Score 3 ? [...] involvement: ?All lymph nodes are negative ? [place] node evaluation: ?H&E, multiple levels ? Response [...] determined by the Surgical Pathology Department at [facility] as part of an ongoing quality systems specialist program and in compliance with federally [...] ORDERABLES F inal Result PATHOLOGY [facility] 3rd Floor [place], [place] [phone] * [place] Fluoroscopy < 1 Hour (01/14/2018 4:01 PM CDT) Narrative RAD_PACS_[facility] - 01/14/2018 4:04 PM CDT The images from this study are not interpreted by Radiology. ??Please refer to the physician's procedure / OR operative note. Kianna Bunch MD PhD IMG FLUOROSCOPY PROCEDURES Final Result Performing Organization Address [facility] Co de Phone Number RAD[facility]PACS[facility] documented in this encounter Visit Diagnoses [...] 01/14/2018 documented in this encounter Care Teams Pulmonology Physician Relationship Specialty Start Date End Date Ravi Smith MD PCP - General 11/04/17 09/27/21 Aft, Kianna Machado MD PhD [address] [place] [address] Surgeon Surgical Oncology 11/22/17 Santiago Gilbert MD [address] [place] [address] Point Of Care Specialist Gastroenterology 11/22/17 documented as of this encounter
--- OUTSIDE RECORDS SUMMARY | 2024-04-24 15:02 | XMS_ITS | Encounter Summary ---
Author Organization [facility] Address [address] [place] [address] Phone Care Team Providers Care Eyeglass Frames Polisher Name Role Phone Ravi Smith MD Primary Care Provider [phone] Aft, Kianna Machado MD PhD Unavailable [phone] Santiago Gilbert MD Unavailable [phone] Encounter Details Date Type Department Care Team (Late st Contact Info) Description 01/22/2018 Orders Only [facility] Oncology [address] [facility] [address] [place] [phone] Abbi Ventura MD [address] [facility] [address] [place], [place] [id number] Malignant neoplasm of colon, unspecified part of [...] file 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 Testing performed by: [facility], [address] [place] [address]., [address] Blood specimen (specimen) 01/28/2018 2:32 PM CDT 01/28/2018 6:12 PM CDT Narrative [facility] - 01/28/2018 6:52 PM CDT us Abbi Ventura MD LAB BLOOD ORDERABLES Final Resul t [facility] [address] [facility]. Department [place] [address] * Comprehensive metabolic panel (01/28/2018 2:32 PM [...] PM CDT 01/28/2018 2:53 PM CDT [facility] 01/28/2018 3:32 PM CDT us Abbi Ventura MD LAB BLOOD ORDERABLES Final Resul t [facility] [address] [facility]. Department [place] [address] * (ABNORMAL) CBC with auto differential (01/28/2018 2:32 PM CDT) WBC 7.8 3.8 - 9.9 K/cumm CERKACI BJW Comment:Testing performed by : [facility], [address] [place] [address] Hgb 11.0(L) 11.9 - 15.5 g/dL CERNER [facility] Comment:Testing performed by : [facility], [address] [place] [address] Hct 34.0(L) 35.6 - 45.5 % CERNER [facility] Comment:Testing performed by : [facility], [address] [place] [address] [place] [address] Plt 161 150 - 400 K/cumm LEVAR TURNER Comment:Testing performed by : [facility], [address] [place] [address] [place] [address] MPV 10.1 9.1 - 12.3 fL [facility] TURNER Comment:Testing performed by : [facility], [address] [place] [address] [place] [address] RBC 3.66(L) 3.90 - 5.20 M/cumm LEVAR TURNER Comment:Testing performed by : [facility], [address] [place] [address] [place] [address] MCV 93 81 - 96 fL [facility] TURNER Comment:Testing performed by : [facility], [address] [place] [address] [place] [address] MCH 30.1 27.1 - 33.3 pg LEVAR TURNER Comment:Testing performed by : [facility], [address] [place] [address] [place] [address] MCHC 32.4 32.3 - 35.7 g/dL LEVAR TURNER Comment:Testing performed by : [facility], [address] [place], [place] [address] [address] RDW CV 13.9 11.1 - 14.9 % LEVAR TURNER Comment:Testing performed by : [facility], [address] [place] [address] [place] [address] RDW SD 47.4 35.7 - 48.1 fL LEVAR TURNER Comment:Testing performed by : [facility], [address] [place] [address] [place] [address] Blood specimen (specimen) 01/28/2018 2:32 PM CDT 01/28/2018 2:43 PM CDT Narrative [facility] - 01/28/2018 2:46 PM CDT us Abbi Ventura MD LAB BLOOD ORDERABLES Final Resul t [facility] [address] [facility] Department [place] [address] documented in this encounter Visit Diagnoses Diagnosis Malignant neoplasm of colon, unspecified part of colon (HCC)- Primary Malignant neoplasm of left breast in female, estrogen receptor negative, unspecified site of breast (HCC) Malignant neoplasm of colon, unspecified part of colon (HCC) documented in this encounter Care Teams Eyeglass Frames Polisher Relationship Specialty Start Date End Date Ravi Smith MD PCP - General 11/04/17 09/27/21 Aft, Kianna Machado MD PhD [address] [place] [address] Surgeon Surgical Oncology 11/22/17 Santiago Gilbert MD [address] [place] [address] Harness Installer Gastroenterology 11/22/17 documented as of this encounter
--- OUTSIDE RECORDS SUMMARY | 2024-04-24 15:02 | XMS_ITS | Encounter Summary ---
Author Organization [facility] Address [address] [place] [address] Phone Care Team Providers Care Instrumental Teacher Name Role Phone Ravi Smith MD Primary Care Provider [phone] Kianna Bunch MD PhD Unavailable [phone] Santiago Gilbert MD Unavailable [phone] Reason for Visit * Oncology (Routine) - Closed Specialty Diagnoses / Procedures Referred By Contronny t Referred To Contact Medical Oncology / Oncology Diagnoses Malignant neoplasm of colon, unspecified Procedures RETURN AftKianna MD PhD Phone: tel: fax: Abbi Ventura MD [address] [facility] [address] [place] [address] Phone: tel: fax: Referral ID Status Reason Start Date Expiration Date V isits Requested Visits Authorized [id number] Closed Specialty Services Required 11/26/2017 05/05/2018 99 99 Encounter Details Date Type Department Care Team (Late st Contact Info) Description 01/28/2018 3:00 PM CDT Office Visit 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 Abbi Ventura MD Lead Applierreferral agent Division of Oncology Section of Medical Oncology [facility] Cosigned by Abbi Ventura MD at 02/01/2018 [...] 018 documented in this encounter Care Teams Instrumental Teacher Relationship Specialty Start Date End Date Ravi Smith MD PCP - General 11/04/17 09/27/21 Aft, Kianna Machado MD PhD [address] [place] [address] Surgeon Surgical Oncology 11/22/17 Santiago Gilbert MD [address] [place] [address] Scale Technician Gastroenterology 11/22/17 documented as of this encounter
--- OUTSIDE RECORDS SUMMARY | 2024-04-24 15:02 | XMS_ITS | Encounter Summary ---
Author Organization [facility] Address [address] [place] [address] Phone Care Team Providers Care Sales And Support Center Agent Name Role Phone Ravi Smith MD Primary Care Provider [phone] Aft, Kianna Machado MD PhD Unavailable [phone] Santiago Gilbert MD Unavailable [phone] Encounter Details Date Type Department Care Team (Late st Contact Info) Description 01/29/2018 Orders Only [facility] Oncology [address] [facility] [address] [place] [phone] Abbi Ventura MD [address] [facility] [address] [place] [address] Malignant neoplasm of upper-inner quadrant of left [...] file 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 Gender Identity Not on file Sexual Orientation Not on file documented as of this encounter Miscellaneous Notes * Addendum Note - Mag Martin MA - 01/29/2018 8:21 AM CDTAddended by: MAG MARTIN on: 03/10/2018 03:51 PM Modules accepted: Orders FACTURING CONTROLLER documented in this encounter Plan of Treatment [...] 01/29/2018 documented in this encounter Care Teams Sales And Support Center Agent Relationship Specialty Start Date End Date Ravi Smith MD PCP - General 11/04/17 09/27/21 Aft, Kianna Machado MD PhD [address] [place] [address] Surgeon Surgical Oncology 11/22/17 Santiago Gilbert MD [address] [place] [address] Real Estate Transaction Coordinator Gastroenterology 11/22/17 documented as of this encounter
--- OUTSIDE RECORDS SUMMARY | 2024-04-24 15:02 | XMS_ITS | Encounter Summary ---
Author Organization [facility] Address [address] [place] [address] Phone Care Team Providers Care Global Product Manager Name Role Phone Ravi Smith MD Primary Care Provider [phone] Aft, Kianna Machado MD PhD Unavailable [phone] Santiago Gilbert MD Unavailable [phone] Reason for Visit * Reason Comments Colon Cancer * Consultation (Routine) - Closed Specialty Diagnoses / Procedures Referred By Vijaya simpson Referred To Contact Colon and Rectal Surgery Diagnoses POV-WEEKS Procedures POSTOPERATIVE VISIT Deana Smith MD Phone: tel: fax: Dmitry Sanderson MD [address] [facility] [phone] [address] [place] [address] Phone: tel: fax: Referral ID Status Reason Start Date Expiration Date Visits Re quested Visits Authorized [id number] Closed 02/06/2018 08/18/2019 1 1 Encounter Details Date Type Department Care Team (Late st Contact Info) Description 02/13/2018 1:30 PM CDT Office Visit 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 Dmitry Sanderson MD, FACS, FASCRS pet adoption counselor Section of Colon & Rectal Surgery [facility] [phone] 02/13/2018 1:30 PM Dictated note was generated using voice-catalogue librarian technology and some variance may result. documented [...] 09/22/2018 added in this encounter Care Teams Global Product Manager Relationship Specialty Start Date End Date Ravi Smith MD PCP - General 11/04/17 09/27/21 Aft, Kianna Machado MD PhD [address] [place] [address] Surgeon Surgical Oncology 11/22/17 Santiago Gilbert MD [address] [place] [address] Room Server Gastroenterology 11/22/17 documented as of this encounter
--- OUTSIDE RECORDS SUMMARY | 2024-04-24 15:02 | XMS_ITS | Encounter Summary ---
Author Organization [facility] Address [address] [place] [address] Phone Care Team Providers Care Luggage Maker Name Role Phone Ravi Smith MD Primary Care Provider [phone] Aft, Kianna Machado MD PhD Unavailable [phone] Santiago Gilbert MD Unavailable [phone] Encounter Details Date Type Department Care Team (Late st Contact Info) Description 01/21/2018 Telephone [facility] Oncology [address] [facility] [address] [place] [address] Rosalba Jones RN Social History Tobacco [...] filedocumented in this encounter Care Teams Luggage Maker Relationship Specialty Start Date End Date Ravi Smith MD PCP - General 11/04/17 09/27/21 Aft, Kianna Machado MD PhD [address] [place] [address] Surgeon Surgical Oncology 11/22/17 Santiago Gilbert MD [address] [place] [address] Coating Engineer Gastroenterology 11/22/17 documented as of this encounter
--- OUTSIDE RECORDS SUMMARY | 2024-04-24 15:02 | XMS_ITS | Encounter Summary ---
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
--- OUTSIDE RECORDS SUMMARY | 2024-04-24 15:02 | XMS_ITS | Encounter Summary ---
Author Organization [facility] Healthcare Address [address] [place] [address] Care Team Providers Care Leaflet Distributor Name Role Phone Ravi Smith MD Primary Care Provider [phone] Kianna Bunch MD PhD Unavailable [phone] Santiago Gilbert MD Unavailable [phone] Reason for Referral * Diagnostic Imaging (Routine) - Closed Specialty Diagnoses / Procedures Referred By Vijaya simpson Referred To Contact Diagnoses Invasive ductal carcinoma of left breast (HCC) Procedures NM Lymphoscintigraphy (Breast) Left Kianna Bunch MD PhD Phone: tel: fax: [address] [phone] Referral ID Status Reason Start Date Expiration Date Visits Re quested Visits Authorized [id number] Closed 12/05/2017 06/16/2019 2 2 Reason for Visit * Diagnostic Imaging (Routine) - Closed Specialty Diagnoses / Procedures Referred By Vijaya simpson Referred To Contact Diagnoses Invasive ductal carcinoma of left breast (HCC) Procedures NM Lymphoscintigraphy (Breast) Left Kianna Bunch MD PhD Phone: tel: fax: [address] [phone] Referral ID Status Reason Start Date Expiration Date Visits Re quested Visits Authorized [id number] Closed 12/05/2017 06/16/2019 2 2 Encounter Details Date Type Department Care Team (Latest Contact Info) Description 01/14/2018 8:55 AM CDT - 01/14/2018 11:59 PM CDT Hospital Encounter [facility] [address] [place] [address] Aft, Kianna Machado MD PhD [address] [place] [address] Invasive ductal carcinoma of left breast (CMS/HCC) [...] file 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 IMPRESSION: [place] node(s) identified as described above for subsequent intraoperative removal with gamma probe guidance. Electronically signed by: Eboni Robles M.D. Kianna Bunch MD PhD IMG MS PROCEDURES Final Re sult documented in this [...] 01/14/2018 documented in this encounter Care Teams Leaflet Distributor Relationship Specialty Start Date End Date Ravi Smith MD PCP - General 11/04/17 09/27/21 Aft, Kianna Machado MD PhD [address] [place] [address] Surgeon Surgical Oncology 11/22/17 Santiago Gilbert MD [address] [place] [address] Supercalender Operator Helper Gastroenterology 11/22/17 documented as of this encounter
--- OUTSIDE RECORDS SUMMARY | 2024-04-24 15:02 | XMS_ITS | Encounter Summary ---
Author Organization [facility] Address [address] [place] [address] Phone Care Team Providers Care Administrative Secretary Name Role Phone Ravi Smith MD Primary Care Provider [phone] Kianna Bunch MD PhD Unavailable [phone] Santiago Gilbert MD Unavailable [phone] Encounter Details Date Type Department Care Team (Late st Contact Info) Description 01/17/2018 Telephone [facility] Surgery [facility] Advanced Medicine 5th [place] [address] Kianna Bunch MD PhD [address] [place] [address] Social History Tobacco Use Types Packs/Day Years Used Date Smoking Tobacco: Former Cigarettes 2015 Smokeless Tobacco: Never Alcohol Use Standard Drinks/Week Comments Yes 0 (1 standard drink = 0.6 oz pur e alcohol) socially Comments No Sex and Gender Information Value Date Recorded Sex Assigned at Not on file 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
--- OUTSIDE RECORDS SUMMARY | 2024-04-24 15:02 | XMS_ITS | Encounter Summary ---
Author Organization [facility] Address [address] [place] [address] Phone Care Team Providers Care Mailroom Courier Name Role Phone Ravi Smith MD Primary Care Provider [phone] Aft, Kianan Machado MD PhD Unavailable [phone] Santiago Gilbert MD Unavailable [phone] Encounter Details Date Type Department Care Team (Late st Contact Info) Description 01/21/2018 Telephone [facility] Surgery [address] [facility] Medicine 5th [place] [address] [place] [address] Rosa Alcantar, [facility] Social History Tobacco Use Types Packs/Day Years Used Date Smoking Tobacco: Former Cigarettes 2015 Smokeless Tobacco: Never Alcohol Use Standard Drinks/Week Comments Yes 0 (1 standard drink = 0.6 oz pur e alcohol) socially Comments No Sex and Gender Information Value Date Recorded Sex Assigned at Not on file 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 ----- Message ----- From: Kristina Reid MA Sent: 12/12/2017 12:02 PM To: Rosa Alcantar MA Mailed results, called [facility] office lmom ----- Message ----- From: Kianna [...] on filedocumented in this encounter Care Teams Mailroom Courier Relationship Specialty Start Date End Date Ravi Smith MD PCP - General 11/04/17 09/27/21 Kianna Bunch MD PhD [address] [place] [address] Surgeon Surgical Oncology 11/22/17 Santiago Gilbert MD [address] [facility] [address] [place] [address] Garage Door Installer Gastroenterology 11/22/17 documented as of this encounter
--- OUTSIDE RECORDS SUMMARY | 2024-04-24 15:02 | XMS_ITS | Encounter Summary ---
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
--- OUTSIDE RECORDS SUMMARY | 2024-04-24 15:02 | XMS_ITS | Encounter Summary ---
Author Organization [facility] Address [address] [place] [address] Phone Care Team Providers Care Developmental Therapist Name Role Phone Ravi Smith MD Primary Care Provider [phone] Aft, Kianna Machado MD PhD Unavailable [phone] Santiago Gilbert MD Unavailable [phone] Encounter Details Date Type Department Care Team (Late st Contact Info) Description 01/28/2018 2:[address] 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 Estimated glomerular filtration [...] LAB BLOOD ORDERABLES Final Resul t [facility] [address] [facility] Department [place] [address] * Differential, auto (01/28/2018 2:32 PM CDT) Neutrophil abs 5.1 1.7 - 6.5 K/cumm [facility]ER [facility] Comment:Testing performed by : [facility], [address] [place] [address], [place] [address] Imm gran abs 0.0 0.0 - 0.1 K/cumm [facility] Comment:Testing performed by : [facility], [address] [place] [address], [place] [address] Lymphocyte abs 2.0 0.8 - 3.3 K/cumm [facility] Comment:Testing performed by : [facility], [address] [place] [address], [place] [address] Monocyte abs 0.4 0.2 - 0.8 K/cumm [facility] Comment:Testing performed by : [facility], [address] [place] [address] Eosinophil abs 0.3 0.0 - 0.5 K/cumm [facility] Comment:Testing performed by : [facility], [address] [place] [address], [place] [address] Basophil abs 0.0 0.0 - 0.1 K/cumm [facility] Comment:Testing performed by : [facility], [address] [place] [address], [place] [address] Neutrophil pct 64.9 % [facility] Comment: Interpretive Data Percent cell count reference ranges are not reported, since discordance with absolute values may lead to misinterpretation of CBC data. Current Interpretive Data was last revised on 2017. Testing performed by: [facility], [address] [place] [address] [place] [address] Imm gran pct 0.5 % [facility] Comment: Interpretive Data Percent cell count reference ranges are not reported, since discordance with absolute values may lead to misinterpretation of CBC data. Current Interpretive Data was last revised on 2017. Testing performed by: [facility], [address] [place] [address], [place] [address] Lymphocyte pct 25.0 % [facility] Comment: Interpretive Data Percent cell count reference ranges are not reported, since discordance with absolute values may lead to misinterpretation of CBC data. Current Interpretive Data was last revised on 2017. Testing performed by: [facility], [address] [place] [address], [place] [address] Monocyte pct 5.7 % [facility] Comment: Interpretive Data Percent cell count reference ranges are not reported, since discordance with absolute values may lead to misinterpretation of CBC data. Current Interpretive Data was last revised on 2017. Testing performed by: [facility], [address] [place] [address], [place], [place] [address] Eosinophil pct 3.3 % [facility] Comment: Interpretive Data Percent cell count reference ranges are not reported, since discordance with absolute values may lead to misinterpretation of CBC data. Current Interpretive Data was last revised on 2017. Testing performed by: [facility], [address] [place] [address], [place] [address] Basophil pct 0.6 % [facility] Comment: Interpretive Data Percent cell count reference ranges are not reported, since discordance with absolute values may lead to misinterpretation of CBC data. Current Interpretive Data was last revised on 2017. Testing performed by: [facility], [address] [place] [address], [place], [place] [address] Blood specimen (specimen) 01/28/2018 2:32 PM CDT 01/28/2018 2:43 PM CDT Narrative L[place]AR TURNER - 01/28/2018 2:46 PM CDT us Abbi Lorenzo MD LAB BLOOD ORDERABLES Final Resul t Performing Organization Address [facility] Co de Phone Number [place] [address] [facility] [place] [address] * CEA (01/28/2018 2:32 PM CDT) Pathologist [facility] CEA 1.59 0.10 - 5.00 ng/mL [facility] Comment: Interpretive Data Reference Range: Non-Smokers: < or = 3.0 ng/mL Some Smokers may have elevated levels, usually < 5.0 ng/mL On July 31, 2016 new Chemistry Instrumentation was implemented. ??If you have any questions, please contact the Laboratory at [phone]. Testing performed by: [facility], [address] [place] [address]., [address] Blood specimen (specimen) 01/28/2018 2:32 PM CDT 01/28/2018 6:12 PM CDT Narrative [place]AR TURNER - 01/28/2018 6:52 PM CDT Abbi Ventura MD LAB BLOOD ORDERABLES Final Resul t Performing Organization Address [facility] Co de Phone Number [place] LOVECH [address] [facility] Department [email or web address] [address] * Comprehensive metabolic panel (01/28/2018 2:32 PM CDT) Pathologist [facility] Sodium 142 135 - 145 mmol/L CERNER [...] BJW Glucose 130 70 - 199 mg/dL [facility] Comment: Interpretive Data Fasting glucose >/= [...] PM CDT 01/28/2018 2:53 PM CDT Narrative [facility] - 01/28/2018 3:32 PM CDT us Abbi Ventura MD LAB BLOOD ORDERABLES Final Resul t [facility] [address] [facility]. [place] [address] * (ABNORMAL) CBC with auto differential (01/28/2018 2:32 PM CDT) WBC 7.8 3.8 - 9.9 K/cumm [facility] Comment:Testing performed by : [facility], [address] [place] [address] Hgb 11.0(L) 11.9 - 15.5 g/dL [facility] Comment:Testing performed by : [facility], [address] [place] [address] Hct 34.0(L) 35.6 - 45.5 % [facility]ACI [facility] Comment:Testing performed by : [facility], [address] [place] [address] [place] [address] Plt 161 150 - 400 K/cumm LEVAR TURNER Comment:Testing performed by : [facility], [address] [place] [address] [place] [address] MPV 10.1 9.1 - 12.3 fL LEVAR TURNER Comment:Testing performed by : [facility], [address] [place] [address] [place] [address] RBC 3.66(L) 3.90 - 5.20 M/cumm LEVAR TURNER Comment:Testing performed by : [facility], [address] [place] [address] [place] [address] MCV 93 81 - 96 fL L[facility]AR TURNER Comment:Testing performed by : [facility], [address] [place] [address] [place] [address] MCH 30.1 27.1 - 33.3 pg LEVAR TURNER Comment:Testing performed by : [facility], [address] [place] [address] [place] [address] MCHC 32.4 32.3 - 35.7 g/dL LEVAR TURNER Comment:Testing performed by : [facility], [address] [place] [address] [place] [address] RDW CV 13.9 11.1 - 14.9 % LEVAR TURNER Comment:Testing performed by : [facility], [address] [place] [address] [place] [address] RDW SD 47.4 35.7 - 48.1 fL LEVAR TURNER Comment:Testing performed by : [facility], [address] [place] [address] [place] [address] Blood specimen (specimen) 01/28/2018 2:32 PM CDT 01/28/2018 2:43 PM CDT Narrative LEVAR TURNER - 01/28/2018 2:46 PM CDT us Abbi Ventura MD LAB BLOOD ORDERABLES Final Resul t [facility] [address] [facility] Department [place] [address] documented in this encounter Visit Diagnoses Diagnosis Malignant neoplasm of left breast in female, estrogen receptor negative, unspecified site of breast (HCC) Malignant neoplasm of colon, unspecified part of colon (HCC) documented in this encounter Orders Appointment Requests Count Last Ordered Date Fi rst Ordered Date ONCBCN LAB APPOINTMENT 1 01/28/2018 documented in this encounter Care Teams Developmental Therapist Relationship Specialty Start Date End Date Ravi Smith MD PCP - General 11/04/17 09/27/21 Aft, Kianna Machado MD PhD [address] [place] [address] Surgeon Surgical Oncology 11/22/17 Santiago Gilbert MD [address] [place] [address] [employer] Gastroenterology 11/22/17 documented as of this encounter
--- OUTSIDE RECORDS SUMMARY | 2024-04-24 15:02 | XMS_ITS | Encounter Summary ---
Author Organization [facility] Address [address] [place] [address] Phone Care Team Providers Care Minister Of Religion Name Role Phone Ravi Smith MD Primary Care Provider [phone] Aft, Kianna Machado MD PhD Unavailable [phone] Santiago Gilbert MD Unavailable [phone] Encounter Details Date Type Department Care Team (Late st Contact Info) Description 02/06/2018 9:30 AM CDT Office Visit [facility] Oncology [address] [place] [address] Abbi Ventura MD 10 [facility] [address] [place] [address] Malignant neoplasm of descending colon (CMS/HCC) (Primary [...] on file 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 Calcium 8.9 8.5 - 10.3 mg/dL [facility] Bilirubin, total 0.2 0.1 - 1.2 mg/dL [facility] Protein, pl 6.5 6.5 - 8.5 g/dL [facility] Albumin 3.9 3.5 - 5.0 g/dL [facility] Alk phos 74 40 - 130 Units/L [facility] ALT 16 7 - 45 Units/L [facility] AST 22 10 - 45 Units/L [facility] Blood specimen (specimen) 02/20/2018 9:46 AM CDT 02/20/2018 9:59 AM CDT Narrative [facility] - 02/20/2018 10:24 AM CDT us Abbi Ventura MD LAB BLOOD ORDERABLES Final Resul t [facility] Department of Laboratories [place], [place] [address] * (ABNORMAL) CBC with auto differential (02/20/2018 9:46 AM CDT) Pathologist [facility] WBC 4.3 3.8 - 9.9 K/cumm [facility] Hgb 10.5(L) 11.9 - 15.5 g/dL [facility] Hct 31.8(L) 35.6 - 45.5 % [facility] Plt 114(L) 150 - 400 K/cumm [facility] MPV 9.4 9.1 - 12.3 fL [facility] RBC 3.49(L) 3.90 - 5.20 M/cumm [facility] MCV 91.1 81.3 - 96.4 fL [facility] MCH 30.1 27.1 - 33.3 pg [facility] MCHC 33.0 32.3 - 35.7 g/dL [facility] RDW CV 13.9 11.1 - 14.9 % [facility] RDW SD 46.4 35.7 - 48.1 fL [facility] NRBC abs 0.00 0.00 - 0.01 K/cumm [facility] Blood specimen (specimen) 02/20/2018 9:46 AM CDT 02/20/2018 9:59 AM CDT Narrative [facility] - 02/20/2018 10:04 AM CDT Abbi Ventura MD LAB BLOOD ORDERABLES Final Resul t Performing Organization Address City/[facility]/ZIP Co de Phone Number [facility] [employer] [place] [address] * Phosphorus (02/06/2018 9:30 AM CDT) [facility] Phosphorus, pl 2.7 2.3 - 4.5 mg/dL [facility] Blood specimen (specimen) 02/06/2018 9:30 AM CDT 02/06/2018 9:32 AM CDT Narrative [facility] - 02/06/2018 9:57 AM CDT Abbi Ventura MD LAB BLOOD ORDERABLES Final Resul t [facility] [employer] [place] [address] * Magnesium (02/06/2018 9:30 AM CDT) Pathologist [facility] Magnesium 1.9 1.4 - 2.5 mg/dL [facility] Blood specimen (specimen) 02/06/2018 9:30 AM CDT 02/06/2018 9:32 AM CDT Narrative [facility] - 02/06/2018 9:57 AM CDT Abbi Ventura MD LAB BLOOD ORDERABLES Final Resul t Performing Organization Address [facility] de Phone Number [facility] Department of [employer] [place] [address] * CEA (02/06/2018 9:30 AM CDT) [facility] CEA 1.4 0.1 - 5.0 ng/mL [facility] Comment: Interpretive Data: Reference Range: ? Non-Smokers: [...] AM CDT 02/06/2018 10:37 AM CDT Narrative [facility] - 02/06/2018 11:13 AM CDT Abbi Ventura MD LAB BLOOD ORDERABLES Final Resul t Performing Organization Address [facility] de Phone Number [facility] [employer] [place] [address] * (ABNORMAL) Comprehensive metabolic panel (02/06/2018 9:30 AM CDT) [facility] Sodium 141 135 - 145 mmol/L [facility] Potassium, pl 3.9 3.3 - 4.9 mmol/L [facility] Chloride 106 97 - 110 mmol/L [facility] CO2 24 22 - 32 mmol/L [facility] Anion gap 11 2 - 15 mmol/L [facility] BUN 14 8 - 25 mg/dL [facility] Creatinine 0.83 0.60 - 1.10 mg/dL [facility] Glucose 170 70 - 199 mg/dL [facility] [...] 2017. Calcium 9.0 8.5 - 10.3 mg/dL [facility] Bilirubin, total 0.4 0.1 - 1.2 mg/dL [facility] Protein, pl 6.4(L) 6.5 - 8.5 g/dL [facility] Albumin 4.0 3.5 - 5.0 g/dL [facility] Alk phos 66 40 - 130 Units/L [facility] ALT 13 7 - 45 Units/L [facility] AST 19 10 - 45 Units/L [facility] Blood specimen (specimen) 02/06/2018 9:30 AM CDT 02/06/2018 9:32 AM CDT Narrative [facility] - 02/06/2018 9:57 AM CDT us Abbi Ventura MD LAB BLOOD ORDERABLES Final Resul t [facility] Department [place] [address] * (ABNORMAL) CBC with auto differential (02/06/2018 9:30 AM CDT) WBC 7.0 3.8 - 9.9 K/cumm [facility] Hgb 10.9(L) 11.9 - 15.5 g/dL [facility] Hct 33.1(L) 35.6 - 45.5 % [facility] Plt 153 150 - 400 K/cumm [facility] MPV 10.2 9.1 - 12.3 fL [facility] RBC 3.58(L) 3.90 - 5.20 M/cumm [facility] MCV 92.5 81.3 - 96.4 fL [facility] MCH 30.4 27.1 - 33.3 pg [facility] MCHC 32.9 32.3 - 35.7 g/dL [facility] RDW CV 14.1 11.1 - 14.9 % [facility] RDW SD 47.8 35.7 - 48.1 fL [facility] NRBC abs 0.00 0.00 - 0.01 K/cumm [facility] Blood specimen (specimen) 02/06/2018 9:30 AM CDT 02/06/2018 9:32 AM CDT Narrative [facility] - 02/06/2018 9:36 AM CDT us Abbi Ventura MD LAB BLOOD ORDERABLES Final Resul t [facility] Department [place] [address] documented in this encounter Visit Diagnoses Diagnosis [...] 02/20/2018 documented in this encounter Care Teams Minister Of Religion Relationship Specialty Start Date End Date Ravi Smith MD PCP - General 11/04/17 09/27/21 Aft, Kianna Machado MD PhD [address] [place] [address] Surgeon Surgical Oncology 11/22/17 Santiago Gilbert MD [address] [place] [address] Explosive Operator Grenade Gastroenterology 11/22/17 documented as of this encounter
--- OUTSIDE RECORDS SUMMARY | 2024-04-24 15:02 | XMS_ITS | Encounter Summary ---
Author Organization [facility] Address [address] [place] [address] Care Team Providers Care Home Service Advisor Name Role Phone Ravi Smith MD Primary Care Provider [phone] Kianna Bunch MD PhD Unavailable [phone] Santiago Gilbert MD Unavailable [phone] Reason for Referral * Diagnostic Imaging (Routine) - Closed Specialty Diagnoses / Procedures Referred By Vijaya simpson Referred To Contact Diagnoses Invasive ductal carcinoma of left breast (HCC) Procedures Mammo Guided Localization Breast Left Kianna Bunch MD PhD Phone: tel: fax: [address] [address] Referral ID Status Reason Start Date Expiration Date Visits Re quested Visits Authorized [id number] Closed 12/05/2017 06/16/2019 1 1 Reason for Visit * Diagnostic Imaging (Routine) - Closed Specialty Diagnoses / Procedures Referred By Vijaya simpson Referred To Contact Diagnoses Invasive ductal carcinoma of left breast (HCC) Procedures Mammo Guided Localization Breast Left Kianna Bunch MD PhD Phone: tel: fax: [address] [phone] Referral ID Status Reason Start Date Expiration Date Visits Re quested Visits Authorized [id number] Closed 12/05/2017 06/16/2019 1 1 Encounter Details Date Type Department Care Team (Latest Contact Info) Description 01/14/2018 6:28 AM CDT - 01/14/2018 11:59 PM CDT Hospital Encounter [facility] [address] [place] [address] Aft, Kianna Machado MD PhD [address] [place] [address] Invasive ductal carcinoma of left breast (CMS/HCC) [...] on file Legal 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 Bradley (breast imaging fellow) and Dr. Garica (diagnostic vice president of consulting services) also participated in this examination. Procedure Note [...] (breast imaging fellow) and Dr. Garcia (diagnostic vice president of consulting services) also participated in this examination. IMPRESSION: Successful [...] 01/14/2018 documented in this encounter Care Teams Home Service Advisor Relationship Specialty Start Date End Date Ravi Smith MD PCP - General 11/04/17 09/27/21 Kianna Bunch MD PhD [address] [place] [address] Surgeon Surgical Oncology 11/22/17 Santiago Gilbert MD [address] [place] [address] Process Controller Gastroenterology 11/22/17 documented as of this encounter
--- OUTSIDE RECORDS SUMMARY | 2024-04-24 15:02 | XMS_ITS | Encounter Summary ---
Author Organization [facility] Address [address] [place] [address] Phone Care Team Providers Care Wader Boot Top Assembler Name Role Phone Ravi Smith MD Primary Care Provider [phone] Aft, Kianna Machado MD PhD Unavailable [phone] Santiago Gilbert MD Unavailable [phone] Encounter Details Date Type Department Care Team (Late st Contact Info) Description 01/31/2018 Orders Only [facility] Oncology [address] [facility] [address] [place] [id number] Abbi Ventura MD 10 [facility] [address] [place] [address] Social History Tobacco Use Types Packs/Day Years Used Date Smoking Tobacco: Former Cigarettes 2015 Smokeless Tobacco: Never Alcohol Use Standard Drinks/Week Comments Yes 0 (1 standard drink = 0.6 oz pur e alcohol) socially Comments No Sex and Gender Information Value Date Recorded Sex Assigned at Not on file Legal Sex Female 1:[address] 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
--- OUTSIDE RECORDS SUMMARY | 2024-04-24 15:02 | XMS_ITS | Encounter Summary ---
Author Organization [facility] Address [address] [place] [address] Phone Care Team Providers Care Rehabilitation Liaison Name Role Phone Ravi Smith MD Primary Care Provider [phone] Aft, Kianna Machado MD PhD Unavailable [phone] Santiago Gilbert MD Unavailable [phone] Encounter Details Date Type Department Care Team (Latest Contact Info) Description 02/06/2018 9:00 AM CDT Clinical Support [facility] Oncology [address] [place] [address] Abbi Ventura MD [address] [place] [address] [address] [place] [address] Malignant neoplasm of descending colon (CMS/HCC) Discharge [...] file Legal 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 Gender Identity Not on file Sexual Orientation Not on file documented as of this encounter Discharge Disposition Disposition Code Departure Means Destination Discharge to home or self care documented in this encounter Plan of Treatment Not on file documented as of this encounter Procedures Procedure Name Priority Date/Time Associated Diagnosis Comments SPECIMEN TRACKING Routine Gen Lab 04/23/2018 2:3 0 PM MOLD CUTTING MACHINE OPERATOR DIFFERENTIAL AUTO Routine 02/06/2018 9:3 0 AM [...] Results * Specimen tracking (04/23/2018 2:30 PM MOLD CUTTING MACHINE OPERATOR) Specimen Blood [facility] Comment: 1 lg didier sent to [employer] with evening marine engine driver for DPD Gene mutation analysis. Spoke to Marlene at molecular. Specimen sent to Molecular Lab [facility] Date sent [id number] [facility] Other 04/23/2018 2:30 PM MOLD CUTTING MACHINE OPERATOR 04/23/2018 2:50 PM MOLD CUTTING MACHINE OPERATOR Narrative [facility] - 04/23/2018 2:52 PM MOLD CUTTING MACHINE OPERATOR us Abbi Ventura MD LAB BLOOD ORDERABLES Final Resul t [facility] Department [place] [address] * Differential, auto (02/06/2018 9:30 AM CDT) Neutrophil abs 4.6 1.7 - 6.5 K/cumm [facility] Imm gran abs 0.0 0.0 - 0.1 K/cumm [facility] Lymphocyte abs 1.7 0.8 - 3.3 K/cumm [facility] Monocyte abs 0.4 0.2 - 0.8 K/cumm [facility] Eosinophil abs 0.3 0.0 - 0.5 K/cumm [facility] Basophil abs 0.1 0.0 - 0.1 K/cumm [facility] Neutrophil pct 64.9 % [facility] Comment: Interpretive Data Percent cell count reference ranges are not reported, since discordance with absolute values may lead to misinterpretation of CBC data. Current Interpretive Data was last revised on 2017. Imm gran pct 0.6 % [facility] Comment: Interpretive Data Percent cell count reference ranges are not reported, since discordance with absolute values may lead to misinterpretation of CBC data. Current Interpretive Data was last revised on 2017. Lymphocyte pct 24.1 % [facility] Comment: Interpretive Data Percent cell count reference ranges are not reported, since discordance with absolute values may lead to misinterpretation of CBC data. Current Interpretive Data was last revised on 2017. Monocyte pct 5.8 % [facility] Comment: Interpretive Data Percent cell count reference ranges are not reported, since discordance with absolute values may lead to misinterpretation of CBC data. Current Interpretive Data was last revised on 2017. Eosinophil pct 3.7 % [facility] Comment: Interpretive Data Percent cell count reference ranges are not reported, since discordance with absolute values may lead to misinterpretation of CBC data. Current Interpretive Data was last revised on 2017. Basophil pct 0.9 % [facility] Comment: Interpretive Data Percent cell count reference ranges are not reported, since discordance with absolute values may lead to misinterpretation of CBC data. Current Interpretive Data was last revised on 2017. Blood specimen (specimen) 02/06/2018 9:30 AM CDT 02/06/2018 9:32 AM CDT Narrative [facility] - 02/06/2018 9:36 AM CDT us Abbi Ventura MD LAB BLOOD ORDERABLES Final Resul t Performing Organization Address [facility] [place] [address] * Phosphorus (02/06/2018 9:30 AM CDT) Phosphorus, pl 2.7 2.3 - 4.5 mg/dL [facility] Blood specimen (specimen) 02/06/2018 9:30 AM CDT 02/06/2018 9:32 AM CDT Narrative [facility] - 02/06/2018 9:57 AM CDT Abbi Ventura MD LAB BLOOD ORDERABLES Final Resul t Performing Organization Address [facility] [place] [address] * Magnesium (02/06/2018 9:30 AM CDT) [facility] Magnesium 1.9 1.4 - 2.5 mg/dL [facility] Blood specimen (specimen) 02/06/2018 9:30 AM CDT 02/06/2018 9:32 AM CDT Narrative [facility] - 02/06/2018 9:57 AM CDT Abbi Ventura MD LAB BLOOD ORDERABLES Final Resul t Performing Organization Address [facility] [place] [address] * CEA (02/06/2018 9:30 AM CDT) Pathologist [facility] CEA 1.4 0.1 - 5.0 ng/mL [facility] Comment: Interpretive Data: Reference Range: ? Non-Smokers: ??0.1 - 5.0 ng/mL ? Smokers: ?0.1 - 6.5 ng/mL ?? This test was developed and its performance characteristics determined by the [facility] in a manner consistent with CLIA requirements. This test has not been cleared or approved by the U.S. Food and Drug Administration. Current interpretive data was last revised 2015. Blood specimen (specimen) 02/06/2018 9:30 AM CDT 02/06/2018 10:37 AM CDT Narrative [facility] - 02/06/2018 11:13 AM CDT us Abbi Ventura MD LAB BLOOD ORDERABLES Final Resul t [facility] [place] [address] * (ABNORMAL) Comprehensive metabolic panel (02/06/2018 9:30 AM CDT) Sodium 141 135 - 145 mmol/L [facility] Potassium, pl 3.9 3.3 - 4.9 mmol/L [facility] Chloride 106 97 - 110 mmol/L [facility] CO2 24 22 - 32 mmol/L [facility] Anion gap 11 2 - 15 mmol/L [facility] BUN 14 8 - 25 mg/dL [facility] Creatinine 0.83 0.60 - 1.10 mg/dL [facility] Glucose 170 70 - 199 mg/dL [facility] Comment: Interpretive Data Fasting glucose >/= [...] 2017. Calcium 9.0 8.5 - 10.3 mg/dL [facility] Bilirubin, total 0.4 0.1 - 1.2 mg/dL [facility] Protein, pl 6.4(L) 6.5 - 8.5 g/dL [facility] Albumin 4.0 3.5 - 5.0 g/dL [facility] Alk phos 66 40 - 130 Units/L [facility] ALT 13 7 - 45 Units/L [facility] AST 19 10 - 45 Units/L [facility] Blood specimen (specimen) 02/06/2018 9:30 AM CDT 02/06/2018 9:32 AM CDT Narrative [facility] - 02/06/2018 9:57 AM CDT us Abbi Ventura MD LAB BLOOD ORDERABLES Final Resul t [facility] [place] [address] * (ABNORMAL) CBC with auto differential (02/06/2018 9:30 AM CDT) [facility] WBC 7.0 3.8 - 9.9 K/cumm [facility] Hgb 10.9(L) 11.9 - 15.5 g/dL [facility] Hct 33.1(L) 35.6 - 45.5 % [facility] Plt 153 150 - 400 K/cumm [facility] MPV 10.2 9.1 - 12.3 fL [facility] RBC 3.58(L) 3.90 - 5.20 M/cumm [facility] MCV 92.5 81.3 - 96.4 fL [facility] MCH 30.4 27.1 - 33.3 pg [facility] MCHC 32.9 32.3 - 35.7 g/dL [facility] RDW CV 14.1 11.1 - 14.9 % [facility] RDW SD 47.8 35.7 - 48.1 fL [facility] NRBC abs 0.00 0.00 - 0.01 K/cumm [facility] Blood specimen (specimen) 02/06/2018 9:30 AM CDT 02/06/2018 9:32 AM CDT Narrative [facility] - 02/06/2018 9:36 AM CDT us Abbi Ventura MD LAB BLOOD ORDERABLES Final Resul t [facility] [place] [address] documented in this encounter Visit Diagnoses Diagnosis Malignant neoplasm of descending colon (CMS/HCC) (HCC) Malignant neoplasm of descending colon documented in this encounter Care Teams Rehabilitation Liaison Relationship Specialty Start Date End Date Ravi Smith MD PCP - General 11/04/17 09/27/21 Aft, Kianna Machado MD PhD [address] [place] [address] Surgeon Surgical Oncology 11/22/17 Santiago Gilbert MD [address] [place] [address] Homicide Detective Gastroenterology 11/22/17 documented as of this encounter
--- OUTSIDE RECORDS SUMMARY | 2024-04-24 15:03 | XMS_ITS | Encounter Summary ---
Author Organization [facility] Address [address] [place] [address] Phone Care Team Providers Care Obstetrics Nurse Name Role Phone Ravi Smith MD Primary Care Provider [phone] Aft, Kianna Machado MD PhD Unavailable [phone] Santiago Gilbert MD Unavailable [phone] Encounter Details Date Type Department Care Team (Late st Contact Info) Description 11/25/2017 Orders Only [facility] Oncology [address] [id number] Anahy Davies, BLELAA Social History Tobacco Use Types Packs/Day Years Used Date Smoking Tobacco: Never Smokeless Tobacco: Never Alcohol Use Standard Drinks/Week Comments Yes 0 (1 standard drink = 0.6 oz pur e alcohol) socially Comments No Sex and Gender Information Value Date Recorded Sex Assigned at Not on file 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
--- OUTSIDE RECORDS SUMMARY | 2024-04-24 15:03 | XMS_ITS | Encounter Summary ---
Author Organization [facility] Healthcare Address [address] [place] [address] Care Team Providers Care Hand Launderer Name Role Phone Ravi Smith MD Primary Care Provider [phone] Aft, Kianna Machado MD PhD Unavailable [phone] Santiago Gilbert MD Unavailable [phone] Encounter Details Date Type Department Care Team (Late st Contact Info) Description 12/30/2017 8:35 AM CDT Ancillary Procedure [facility] Vascular Lab [address] [place] [address] Social History Tobacco Use Types Packs/Day Years Used Date Smoking Tobacco: Former Cigarettes 2015 Smokeless Tobacco: Never Alcohol Use Standard Drinks/Week Comments No 0 (1 standard drink = 0.6 oz pur e alcohol) socially Comments No Sex and Gender Information Value Date Recorded Sex Assigned at Not on file 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 The internal jugular, subclavian and axillary veins were evaluated for patency, spontaneity and phasicity with Doppler, compression and augmentation maneuvers. The brachial, basilic and cephalic veins were also evaluated with compression maneuvers. Indications: Localized edema. Findings: Performing Cigar Tobacco Processing Supervisor: Hira Tobar RVT. Left: Venous Doppler signals [...] performed. Electronically Signed By: Wojciech Whitaker MD [facility] 2018-01-01 23:54:29 CDT CC: CC: Procedure Note Wojciech Whitaker MD - 01/01/2018 [facility] - Department of Vascular Surgery,Vascular Laboratory [address] [place] [address] Upper Extremity Venous Ultrasound Report Patient Name: ALEAH AGUILARPatient ID: [id number] : 1955 (62y 5m)Study Date: 12/30/2017 8:36:46 AM Gender: FAccession #: [id number] Tech: TTLocation: [id number] Ref.Provider: Arben LÓPEZ(Cm): BSA: Weight(Kg): Quality: AdequateOrder Provider: MARIE DUTTON Procedures: Vascular Report: Venous Duplex imaging was performed in the left upper extremity. Theinternal jugular, subclavian and axillary veins were evaluated for patency, spontaneity andphasicity with Doppler, compression and augmentation maneuvers. The brachial, basilic andcephalic veins were also evaluated with compression maneuvers. Indications: Localized edema. Findings: Performing Cigar Tobacco Processing Supervisor: Hira Tobar RVT. Left: Venous Doppler signals [...] performed. Electronically Signed By: Wojciech Whitaker MD [facility] 2018-01-01 23:54:29 CDT CC: CC: us Marie Dutton VICE PRESIDENT TAX IMG US PROCEDURES Final Result documented in this encounter Visit Diagnoses Not on filedocumented in this encounter Care Teams Hand Launderer Relationship Specialty Start Date End Date Ravi Smith MD PCP - General 11/04/17 09/27/21 Aft, Kianna Machado MD PhD [address] [place] [address] Surgeon Surgical Oncology 11/22/17 Santiago Gilbert MD [address] [place] [address] Making Line Worker Gastroenterology 11/22/17 documented as of this encounter
--- OUTSIDE RECORDS SUMMARY | 2024-04-24 15:03 | XMS_ITS | Encounter Summary ---
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
--- OUTSIDE RECORDS SUMMARY | 2024-04-24 15:03 | XMS_ITS | Encounter Summary ---
Author Organization [facility] Address [address] [place] [address] Phone Care Team Providers Care It Senior Analyst Name Role Phone Ravi Smith MD Primary Care Provider [phone] Kianna Bunch MD PhD Unavailable [phone] Santiago Gilbert MD Unavailable [phone] Reason for Referral * Diagnostic Imaging (Routine) - Closed Specialty Diagnoses / Procedures Referred By Vijaya simpson Referred To Contact Diagnoses Invasive ductal carcinoma of left breast (HCC) Procedures NM Lymphoscintigraphy (Breast) Left Kianna Bunch MD PhD Phone: tel: fax: [address] [address] Referral ID Status Reason Start Date Expiration Date Visits Re quested Visits Authorized [id number] Closed 12/05/2017 06/16/2019 2 2 * Diagnostic Imaging (Routine) - Closed Specialty Diagnoses / Procedures Referred By Vijaya simpson Referred To Contact Diagnoses Invasive ductal carcinoma of left breast (HCC) Procedures Mammo Guided Localization Breast Left Kianna Bunch MD PhD Phone: tel: fax: [address] [place] [place] [address] Referral ID Status Reason Start Date Expiration Date Visits Re quested Visits Authorized [id number] Closed 12/05/2017 06/16/2019 1 1 Encounter Details Date Type Department Care Team (Late st Contact Info) Description 12/05/2017 Orders Only 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 IMPRESSION: [place] node(s) identified as described above for subsequent intraoperative removal with gamma probe guidance. Electronically signed by: Eboni Robles M.D. Kianna Bunch MD PhD IMG NM PROCEDURES Final Re sult documented in this encounter Visit Diagnoses Diagnosis Invasive ductal carcinoma of left breast (HCC)- Primary Invasive ductal carcinoma of left breast (HCC) Invasive ductal carcinoma of left breast (HCC) documented in this encounter Care Teams It Senior Analyst Relationship Specialty Start Date End Date Ravi Smith MD PCP - General 11/04/17 09/27/21 Aft, Kianna Machado MD PhD [address] [place] [address] Surgeon Surgical Oncology 11/22/17 Santiago Gilbert MD [address] [place] [address] Good Humor Vendor Gastroenterology 11/22/17 documented as of this encounter
--- OUTSIDE RECORDS SUMMARY | 2024-04-24 15:03 | XMS_ITS | Encounter Summary ---
Author Organization [facility] Address [address] [place] [address] Phone Care Team Providers Care Radio Program Director Name Role Phone Ravi Smith MD Primary Care Provider [phone] Kianna Bunch MD PhD Unavailable [phone] Santiago Gilbert MD Unavailable [phone] Encounter Details Date Type Department Care Team (Late st Contact Info) Description 12/06/2017 Telephone [facility] Surgery [facility] Advanced Medicine 5th [place] [address] Kianna Bunch MD PhD [address] [place] [address] Social History Tobacco Use Types Packs/Day Years Used Date Smoking Tobacco: Never Smokeless Tobacco: Never Alcohol Use Standard Drinks/Week Comments Yes 0 (1 standard drink = 0.6 oz pur e alcohol) socially Comments No Sex and Gender Information Value Date Recorded Sex Assigned at Not on file Legal 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
--- OUTSIDE RECORDS SUMMARY | 2024-04-24 15:03 | XMS_ITS | Encounter Summary ---
Author Organization [facility] Healthcare Address [address] [place] [address] Care Team Providers Care Gm Mobile Name Role Phone Ravi Smith MD Primary Care Provider [phone] Aft, Kianna Machado MD PhD Unavailable [phone] Santiago Gilbert MD Unavailable [phone] Encounter Details Date Type Department Care Team (Late st Contact Info) Description 12/27/2017 2:23 PM CDT Anesthesia Event [facility] Operating Room [address] [place] [address] Sofie Montemayor MD [address] [place] [address] Aden Aragon MD [address] [place] [address] Anesthesia Record Procedure Summary Procedure Name Responsible [...] file 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 Gender Identity Not on file Sexual Orientation Not on file documented as of this encounter OR Notes * Anesthesia Postprocedure Evaluation - Corwin Pritchard MD - 12/27/2017 6:20 PM CDT Patient: Aleah Gerber Procedure Summary Date: 12/27/17 Room / Location: [facility] OR POD 1 ROOM 331 / [facility] OR POD 1 Anesthesia Start: 1423 [...] Preoperative Evaluation Record CPAP Clinic at the [facility] ([facility] [place] Anesthesia Evaluation Aleah Gerber is a 62 [...] Cardiovascular + Hyperlipidemia Pertinent negatives: hypertension CAD [place] CABG valvular heart disease valve replacement atrial fibrillation dysrhythmia - non-specific pacemaker/ICD PVD DVT/PE negative for CHF drug-eluting stent(s) bare metal stent(s) coronary angioplasty Respiratory + COPD (chronic NG; states at baseline. states is not followed by a codifier.) Dyspnea frequency: daily. Rescue inhaler use: never. [...] Medication protocol when under care of a CERTIFIED OPHTHALMIC MEDICAL TECHNICIAN Planned anesthesia: General and regional for postop pain per surgeon request Induction: Induction: intravenous. Postoperative Plan: Postoperative administration opioids intended. No postoperative mechanical ventilation intended. Informed Consent: Discussed plan with CERTIFIED OPHTHALMIC MEDICAL TECHNICIAN. Anesthesia plan and risks discussed with [...] Procedure Name Priority Date/Time Associated Diagnosis Comments MD AN PROCEDURE PLACEHOLDER Routine 12/27/2017 3:05 PM CDT Procedure Note - Anuja Olsen CRNA - 12/27/2017 3:05 PM CDTThis note is in progress. Peripheral IV Catheter Patient location: OR Staff: Placed by: Anesthesiologist: HÉCTOR GRANADOS Preprocedure prep: Prep solution: alcohol PPE: gloves PIV line: Laterality: left Site: hand Catheter size: 18 g MD AN PROCEDURE PLACEHOLDER Routine 12/27/2017 2:54 PM CDT Procedure Note - Anuja Olsen CRNA - 12/27/2017 2:54 PM CDTThis note is in progress. Airway Patient location: OR Urgency: elective Indications for airway management: anesthesia Difficult airway: no Staff: Placed by: CERTIFIED OPHTHALMIC MEDICAL TECHNICIAN: ANUJA OLSEN Airway prep: Preoxygenated: yes Patient [...] with: silk tape Number of attempts: 1 MD AN ELECTIVE ENDOTRACHEAL AIRWAY Routine 12/27/2017 2:54 [...] 12/27/2017 documented in this encounter Care Teams Gm Mobile Relationship Specialty Start Date End Date Ravi Smith MD PCP - General 11/04/17 09/27/21 Aft, Kianna Machado MD PhD [address] [place] [address] Surgeon Surgical Oncology 11/22/17 Santiago Gilbert MD [address] [place] [address] Tearoom Host Gastroenterology 11/22/17 documented as of this encounter
--- OUTSIDE RECORDS SUMMARY | 2024-04-24 15:03 | XMS_ITS | Encounter Summary ---
Author Organization [facility] Address [address] [place] [address] Phone Care Team Providers Care Staff Nurse Anesthetist Name Role Phone Ravi Smith MD Primary Care Provider [phone] Aft, Kianna Machado MD PhD Unavailable [phone] Santiago Gilbert MD Unavailable [phone] Encounter Details Date Type Department Care Team (Late st Contact Info) Description 12/03/2017 Telephone [facility] Oncology [address] [facility] [address] [place] [address] ClydeShruti Social History Tobacco Use Types Packs/Day Years Used Date Smoking Tobacco: Never Smokeless Tobacco: Never Alcohol Use Standard Drinks/Week Comments Yes 0 (1 standard drink = 0.6 oz pur e alcohol) socially Comments No Sex and Gender Information Value Date Recorded Sex Assigned at Not on file 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
--- OUTSIDE RECORDS SUMMARY | 2024-04-24 15:03 | XMS_ITS | Encounter Summary ---
Author Organization [facility] Healthcare Address [address] [place] [address] Care Team Providers Care Hydraulic Mechanic Name Role Phone Ravi Smith MD Primary Care Provider [phone] Aft, Kianna Machado MD PhD Unavailable [phone] Santiago Gilbert MD Unavailable [phone] Encounter Details Date Type Department Care Team (Late st Contact Info) Description 12/27/2017 2:00 PM CDT - 12/27/2017 5:30 PM CDT Surgery [facility] Operating Room [address] [place] [address] Nicole López MD [address] [phone] [address] [place] [address] RESECTION LEFT COLON - LAPAROSCOPIC Surgery Details [...] file Legal Sex Female 1:06 AM CONTACT CENTER REP Gender Identity Not on file Sexual Orientation [...] Provider: Nicole López MD Discharge Provider: Nicole Lpóez MD Primary Care Physician at Discharge: Ravi Smith MD [phone] Admission Date: 12/27/2017 Discharge Date: 12/31/2017 Admission Location: [facility] Primary Discharge Diagnosis: Distal transverse colon cancer [...] Order Current Status Surgical pathology Collected (12/27/17 0266) Operative Procedures Performed: Procedure(s): RESECTION LEFT COLON [...] Time Provider Department Center 01/14/2018 8:00 AM [facility] N NM04 BJN NucMed [facility] North [place] 01/14/2018 9:30 AM [facility] BHDG3 CAM Brst Img [facility] CAM IMG 01/27/2018 3:00 PM LAB, [...] anxiety 11/07/2017 BREO ELLIPTA 100-25 mcg/dose diskus inhalerIndicatio ns:Bronchospasm Prevention with COPD Inhale every morning 1 11/22/2017 9 cholecalciferol (VITAMIN D3) 2,000 unit capsuleIndicatio ns:Osteoporosis Take 2,000 Units by mouth nightly 10/04/2017 0 ondansetron (ZOFRAN) 8 mg tablet Take 1 tablet at 11:00AM with Miralax prep. Take 1 tablet every 8 hours for nausea. 2 tablet 12/10/2017 8 sertraline (ZOLOFT) 50 mg tabletIndication s:Anxiety with [...] to 10 days. 40 capsule 12/31/2017 8 psyllium 0.52 gram capsuleIndicatio ns:constipation Take [...] flush 0.5-20 mL, 0.5-20 mL, intra-catheter, Q8H ARCI, 10 mL at 12/31/17 0454 ??? sodium [...] CDT 12/30/17 1322 Referral Data Referral Source Cargo Handler Referral Reason Discharge Planning Patient Information Support [...] necessary 12/30/17 1322 Referral Data Referral Source Cargo Handler Referral Reason Discharge Planning Patient Information Support System Spouse/Significant Other Support system contact info (name, phone, availablity) spouse, Dat Prior Level of Functioning Living Arrangement House (lives with spouse, bedroom on main level) Potential Discharge Needs Discharge Potential no needs identified Anticipated discharge level of care Return Home Communications Fiduciary Responsibility Patient/Designated decision maker was informed of [facility] fiduciary relationship as necessary 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 Address and phone verified to face sheet. Patient lives with spouse, Dat, for support. He can be reached at [phone]. Daughter, Debbi, also lives close. Plan Includes: Discharge to home. No HHC or DME needs identified. Insurance verified as: [place] Access Admit Source: non healthcare PCP: [facility] as [facility]. [facility] Based on a comprehensive family [...] lap left hemicolectomyon 12/27. Plan - D/c STATISTICAL SECRETARY - PO pain meds - HLIV - Regular diet Rosalba sEpinoza MD 12/29/2017 Cosigned by Ronny Ng MD [...] per pathway - entereg until ROBF Ppx: Jamilah johns Dispo: continue inpatient care Electronic Signature: [...] ambulate, tolerate PO Summary: Patient says that STATISTICAL SECRETARY is controlling her pain. She is ambulating [...] VS. Summary: VSS, and pain managed through STATISTICAL SECRETARY. * Op Note - Nicole López MD [...] no bleeding and this returned clear. A [id number] functional end-to-end double stapled anastomosis was performed [...] and closing). Nicole López MD, FACS, FASCRS building architect Section of Colon & Rectal Surgery [facility] [phone] Dictated note was generated using voice-exhibit preparator technology and some variance may result. documented [...] Basophil abs 0.0 0.0 - 0.1 K/cumm [facility] Neutrophil pct 63.0 % [facility] Comment: Interpretive Data Percent cell count reference ranges are not reported, since discordance with absolute values may lead to misinterpretation of CBC data. Current Interpretive Data was last revised on 2017. Imm gran pct 0.6 % [facility] Comment: Interpretive Data Percent cell count reference ranges are not reported, since discordance with absolute values may lead to misinterpretation of CBC data. Current Interpretive Data was last revised on 2017. Lymphocyte pct 24.8 % [facility] Comment: Interpretive Data Percent cell count reference ranges are not reported, since discordance with absolute values may lead to misinterpretation of CBC data. Current Interpretive Data was last revised on 2017. Monocyte pct 6.1 % [facility] Comment: Interpretive Data Percent cell count reference ranges are not reported, since discordance with absolute values may lead to misinterpretation of CBC data. Current Interpretive Data was last revised on 2017. Eosinophil pct 5.0 % [facility] Comment: Interpretive Data Percent cell count reference ranges are not reported, since discordance with absolute values may lead to misinterpretation of CBC data. Current Interpretive Data was last revised on 2017. Basophil pct 0.5 % [facility] Comment: Interpretive Data Percent cell count reference ranges are not reported, since discordance with absolute values may lead to misinterpretation of CBC data. Current Interpretive Data was last revised on 2017. Blood specimen (specimen) 12/30/2017 10:33 PM CDT 12/30/2017 11:31 PM CDT Narrative [facility] - 12/30/2017 11:44 PM CDT Marie Dutton SERVICE ADVOCATE CONTACT LAB BLOOD ORDERABLES Final Res ult [facility] One [facility] [place] [address] * Basic metabolic panel (12/30/2017 10:33 PM CDT) Sodium 141 135 - 145 mmol/L [facility] Potassium, pl 3.8 3.3 - 4.9 mmol/L [facility] Chloride 108 97 - 110 mmol/L [facility] CO2 24 22 - 32 mmol/L [facility] Anion gap 10 2 - 15 mmol/L [facility] BUN 13 8 - 25 mg/dL [facility] Creatinine 0.95 0.60 - 1.10 mg/dL [facility] Glucose 85 70 - 199 mg/dL [facility] [...] mg/dL [facility] Blood specimen (specimen) 12/30/2017 10:33 PM CDT 12/30/2017 11:31 PM CDT Narrative [facility] - 12/30/2017 11:56 PM CDT us Marie Dutton SERVICE ADVOCATE CONTACT LAB BLOOD ORDERABLES Final Res ult [facility] [place] [address] * (ABNORMAL) CBC with auto differential (12/30/2017 10:33 PM CDT) WBC 7.8 3.8 - 9.9 K/cumm [facility] Hgb 10.4(L) 11.9 - 15.5 g/dL [facility] Hct 32.1(L) 35.6 - 45.5 % [facility] Plt 161 150 - 400 K/cumm [facility] MPV 10.3 9.1 - 12.3 fL [facility] RBC 3.55(L) 3.90 - 5.20 M/cumm [facility] MCV 90.4 81.3 - 96.4 fL [facility] MCH 29.3 27.1 - 33.3 pg [facility] MCHC 32.4 32.3 - 35.7 g/dL [facility] RDW CV 13.6 11.1 - 14.9 % [facility] RDW SD 45.1 35.7 - 48.1 fL [facility] NRBC abs 0.00 0.00 - 0.01 K/cumm [facility] Blood specimen (specimen) 12/30/2017 10:33 PM CDT 12/30/2017 11:31 PM CDT Narrative [facility] - 12/30/2017 11:44 PM CDT us Marie Dutton SERVICE ADVOCATE CONTACT LAB BLOOD ORDERABLES Final Res ult [facility] Department of Laboratories [place], [place] [id number] * US Vein Duplex Upper Extremity Left Limited (12/30/2017 8:51 AM CDT) Anatomical Region Laterality Modality Vascular Left Ultrasound 12/30/2017 8:36 AM CDT Narrative 01/01/2018 11:54 PM CDT [facility] - Department of Vascular Surgery, Vascular Laboratory [address] [place] [address] Upper Extremity Venous Ultrasound Report Patient Name: ALEAH GERBER : 1955 (62y 5m) Study Date: 12/30/2017 8:36:46 AM Gender: F Tech: TT Location: [id number] Ref.Provider: NICOLE LÓPEZ Height(Cm): BSA: Weight(Kg): Quality: Adequate Order Provider: MARIE DUTTON Procedures: Vascular Report: Venous Duplex imaging was performed in the left upper extremity. The internal jugular, subclavian and axillary veins were evaluated for patency, spontaneity and phasicity with Doppler, compression and augmentation maneuvers. The brachial, basilic and cephalic veins were also evaluated with compression maneuvers. Indications: Localized edema. Findings: Performing Metal Burrer: Hira Tobar RVT. Left: Venous Doppler signals [...] performed. Electronically Signed By: Wojciech Whitaker MD [facility] 2018-01-01 23:54:29 CDT CC: CC: Procedure Note Wojciech Whitaker MD - 01/01/2018 [facility] - Department of Vascular Surgery,Vascular Laboratory [address] [place] [address] Upper Extremity Venous Ultrasound Report Patient Name: ALEAH GERBERPatient ID: [id number] : 1955 (62y 5m)Study Date: 12/30/2017 8:36:46 AM Gender: FAccession #: [id number] Tech: TTLocation: [id number] Ref.Provider: Arben LÓPEZ(Cm): BSA: Weight(Kg): Quality: AdequateOrder Provider: MARIE DUTTON Procedures: Vascular Report: Venous Duplex imaging was performed in the left upper extremity. Theinternal jugular, subclavian and axillary veins were evaluated for patency, spontaneity andphasicity with Doppler, compression and augmentation maneuvers. The brachial, basilic andcephalic veins were also evaluated with compression maneuvers. Indications: Localized edema. Findings: Performing Metal Burrer: Hira Tobar RVT. Left: Venous Doppler signals [...] performed. Electronically Signed By: Wojciech Whitaker MD [facility] 2018-01-01 23:54:29 CDT CC: CC: Marie [...] BJ BUN 23 8 - 25 mg/dL [facility] Creatinine 1.19(H) 0.60 - 1.10 mg/dL [facility] Glucose 103 70 - 199 mg/dL [facility] [...] 2017. Calcium 8.0(L) 8.5 - 10.3 mg/dL [facility] Blood specimen (specimen) 12/28/2017 10:56 PM CDT 12/28/2017 11:40 PM CDT Narrative [facility] - 12/29/2017 12:05 AM CDT us Nicole López MD LAB BLOOD ORDERABLES Final Result [facility] [place] [address] * (ABNORMAL) CBC without differential (12/28/2017 10:56 PM CDT) WBC 13.3(H) 3.8 - 9.9 K/cumm [facility] Hgb 10.0(L) 11.9 - 15.5 g/dL [facility] Hct 31.1(L) 35.6 - 45.5 % [facility] Plt 166 150 - 400 K/cumm [facility] MPV 10.4 9.1 - 12.3 fL [facility] RBC 3.40(L) 3.90 - 5.20 M/cumm [facility] MCV 91.5 81.3 - 96.4 fL [facility] MCH 29.4 27.1 - 33.3 pg [facility] MCHC 32.2(L) 32.3 - 35.7 g/dL [facility] RDW CV 13.7 11.1 - 14.9 % [facility] RDW SD 46.5 35.7 - 48.1 fL [facility] NRBC abs 0.00 0.00 - 0.01 K/cumm [facility] Blood specimen (specimen) 12/28/2017 10:56 PM CDT 12/28/2017 11:40 PM CDT Narrative [facility] - 12/28/2017 11:47 PM CDT Nicole López MD LAB BLOOD ORDERABLES Final Result [facility] [place] [address] * Potassium, whole blood (12/28/2017 11:01 AM CDT) [facility] Potassium, bld 4.6 3.3 - 4.9 mmol/L [facility] Blood specimen (specimen) 12/28/2017 11:01 AM CDT 12/28/2017 11:20 AM CDT Narrative [facility] - 12/28/2017 11:34 AM CDT Nicole López MD LAB BLOOD ORDERABLES Final Result [facility] Department [place] [address] * (ABNORMAL) Differential, auto (12/28/2017 1:55 AM CDT) [facility] Neutrophil abs 11.4(H) 1.7 - 6.5 K/cumm [facility] Imm gran abs 0.1 0.0 - 0.1 K/cumm [facility] Lymphocyte abs 0.6(L) 0.8 - 3.3 K/cumm [facility] Monocyte abs 0.4 0.2 - 0.8 K/cumm [facility] Eosinophil abs 0.0 0.0 - 0.5 K/cumm [facility] Basophil abs 0.0 0.0 - 0.1 K/cumm [facility] Neutrophil pct 91.8 % [facility] Comment: Interpretive Data Percent cell count reference ranges are not reported, since discordance with absolute values may lead to misinterpretation of CBC data. Current Interpretive Data was last revised on 2017. Imm gran pct 0.6 % [facility] Comment: Interpretive Data Percent cell count reference ranges are not reported, since discordance with absolute values may lead to misinterpretation of CBC data. Current Interpretive Data was last revised on 2017. Lymphocyte pct 4.4 % [facility] Comment: Interpretive Data Percent cell count reference ranges are not reported, since discordance with absolute values may lead to misinterpretation of CBC data. Current Interpretive Data was last revised on 2017. Monocyte pct 3.0 % [facility] Comment: Interpretive Data Percent cell count reference ranges are not reported, since discordance with absolute values may lead to misinterpretation of CBC data. Current Interpretive Data was last revised on 2017. Eosinophil pct 0.1 % [facility] Comment: Interpretive Data Percent cell count reference ranges are not reported, since discordance with absolute values may lead to misinterpretation of CBC data. Current Interpretive Data was last revised on 2017. Basophil pct 0.1 % [facility] Comment: Interpretive Data Percent cell count reference ranges are not reported, since discordance with absolute values may lead to misinterpretation of CBC data. Current Interpretive Data was last revised on 2017. Blood specimen (specimen) 12/28/2017 1:55 AM CDT 12/28/2017 2:30 AM CDT Narrative [facility] - 12/28/2017 2:40 AM CDT us Nicole López MD LAB BLOOD ORDERABLES Final Result [facility] [place] [address] * (ABNORMAL) Basic metabolic panel (12/28/2017 1:55 AM CDT) Pathologist [facility] Sodium 137 135 - 145 mmol/L [facility] Potassium, pl 5.0(H) 3.3 - 4.9 mmol/L [facility] Chloride 104 97 - 110 mmol/L [facility] CO2 23 22 - 32 mmol/L [facility] Anion gap 10 2 - 15 mmol/L [facility] BUN 20 8 - 25 mg/dL [facility] Creatinine 1.03 0.60 - 1.10 mg/dL [facility] Glucose 207(H) 70 - 199 mg/dL [facility] [...] 2017. Calcium 8.5 8.5 - 10.3 mg/dL [facility] Blood specimen (specimen) 12/28/2017 1:55 AM CDT 12/28/2017 2:30 AM CDT Narrative [facility] - 12/28/2017 2:55 AM CDT us Nicole López MD LAB BLOOD ORDERABLES Final Result [facility] [place] [address] * (ABNORMAL) CBC with auto differential (12/28/2017 1:55 AM CDT) Pathologist [facility] WBC 12.4(H) 3.8 - 9.9 K/cumm [facility] Hgb 11.3(L) 11.9 - 15.5 g/dL [facility] Hct 34.9(L) 35.6 - 45.5 % [facility] Plt 168 150 - 400 K/cumm [facility] MPV 10.4 9.1 - 12.3 fL [facility] RBC 3.81(L) 3.90 - 5.20 M/cumm [facility] MCV 91.6 81.3 - 96.4 fL [facility] MCH 29.7 27.1 - 33.3 pg [facility] MCHC 32.4 32.3 - 35.7 g/dL [facility] RDW CV 13.4 11.1 - 14.9 % [facility] RDW SD 45.1 35.7 - 48.1 fL [facility] NRBC abs 0.00 0.00 - 0.01 K/cumm [facility] Blood specimen (specimen) 12/28/2017 1:55 AM CDT 12/28/2017 2:30 AM CDT Narrative [facility] - 12/28/2017 2:40 AM CDT Nicole López MD LAB BLOOD ORDERABLES Final Result [facility] [place] [address] * Surgical pathology (12/27/2017 4:23 PM CDT) Tissue (Colon, Resection, Tumor) 12/27/2017 4:23 PM CDT Narrative PATHOLOGY [facility] - 01/08/2018 4:24 PM CDT EPIC results best viewed via link to PDF [facility] Galilea Muñiz Laboratory [place] [address] SURGICAL PATHOLOGY REPORT FINAL WITH ADDENDUM Patient Name: ?? ALEAH GERBER Gender: ??F : ??1955 (Age: 62) Address: ??[address] [place], [place] ??[address] [facility] #: ??[id number] Taken:12/27/2017 Received:12/30/2017 Reported: 01/08/2018 Patient Type: [facility] Inpatient ?? Service: Surgery Location: [facility] 6900 Physician(s): ??David Hodges M.D. Diagnosis: Colon, [...] The BRAF Mutation-NGS test was performed at [facility] [address] [place] [address]. The performance characteristics of some immunohistochemical stains, fluorescence in-situ hybridization tests and immunophenotyping by flow cytometry cited in this report (if any) were determined by the Surgical Pathology Department at [facility] as part of an ongoing quality control specialist program and in compliance with federally [...] determined by the Surgical Pathology Department of [facility]. ??It has not been cleared or approved by the U. S. Food and Drug Administration. IMAGES AND SCANNED DOCUMENTS, IF INCLUDED, ONLY VIEWABLE IN PDF VERSION OF REPORT Nicole López MD LAB PATHOLOGY ORDERA LEO Final Result PATHOLOGY [facility] [address] Floor [place], [place] [phone] * Type and screen (12/27/2017 1:27 PM CDT) Pathologist [facility] ABO Rh O Positive [facility] Jose Roberto, indirect Negative [facility] Blood specimen (specimen) 12/27/2017 1:27 PM CDT 12/27/2017 1:35 PM CDT Narrative [facility] - 12/27/2017 2:55 PM CDT Has the patient had Daratumumab (Darzalex) in the past 6 months?->Unknown Bettina Morales NP LAB BLOOD BANK TEST ORDERABL ES Final Result [facility] [place] [address] documented in this encounter Visit Diagnoses Diagnosis [...] Provider: Tomas Wiley RN)[id number] (Given - Provider: Carri Riggins RN) 0915 [...] chloride 0.9% (premix) (CANCELED) Continuous dose: None, STATISTICAL SECRETARY dose: 0.2 mg, STATISTICAL SECRETARY lockout: 10 Minutes, 1 hour limit: Other [...] 12/27/2017 documented in this encounter Care Teams Hydraulic Mechanic Relationship Specialty Start Date End Date Ravi Smith MD PCP - General 11/04/17 09/27/21 Aft, Kianna Machado MD PhD [address] [facility] [address] [place] [address] Surgeon Surgical Oncology 11/22/17 Santiago Gilbert MD [address] [place] [address] Bulk Folder Gastroenterology 11/22/17 documented as of this encounter
--- OUTSIDE RECORDS SUMMARY | 2024-04-24 15:03 | XMS_ITS | Encounter Summary ---
Author Organization [facility] Healthcare Address [address] [place] [address] Care Team Providers Care Monument Carver Name Role Phone Ravi Smith MD Primary Care Provider [phone] Aftatiana, Kianna Machado MD PhD Unavailable [phone] Santiago Gilbert MD Unavailable [phone] Encounter Details Date Type Department Care Team (Latest Contact Info) Description 01/14/2018 6:06 AM CDT - 01/14/2018 8:06 PM CDT Hospital Encounter [facility] Operating Room [facility] [address] [place] [id number] Aftatiana, Kianna Machado MD PhD [address] [address] Malignant neoplasm of left female breast, unspecified estrogen receptor status, unspecified site of breast ([facility]/HCC) Discharge Disposition: Discharge to home or [...] file 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 In case of constipation 30 capsule 12/31/2017 9 documented as of this encounter [...] MD Breast Surgical Oncology Fellow Pager #: [phone] 01/14/2018 8:31 AM Cosigned by Kianna Bunch [...] Breast Needle Localization partial mastectomy (L), Biopsy [place] Lymph Node With Lymphoscintigraphy (L), Insertion Port [...] lymphoscintigraphy. She was then taken to the [facility] where she underwent needle localization of [...] the lateral margin and was sent back [facility]. Specimen radiograph demonstrated that the cancer [...] the case. * Brief Op Note - lAlyson Ga MD - 01/14/2018 3:32 PM CDT Operative Progress Note Attending Surgeon: Kianna Bunch MD PhD Assisting: Allyson Ga MD (fellow) Surgical Team: Turn Out: Cat Boss RN Turn Out Relief: Maldonado Parks RN Scrub: Omayra Guzmán RN DATE OF SURGERY : 01/14/2018 Preoperative Diagnosis: Pre-op Diagnosis * Malignant neoplasm of left female breast, unspecified estrogen receptor status, unspecified site of breast (CMS/HCC) [C50.912] Postoperative Diagnosis: Post-op Diagnosis * Malignant neoplasm of left female breast, unspecified estrogen receptor status, unspecified site of breast (CMS/HCC) [C50.912] Procedure: Procedure(s): Biopsy Breast Needle Localization Biopsy [place] Lymph Node With Lymphoscintigraphy Insertion Port A [...] Implant Name Type Inv. Item Serial No. Server Programmer Lot No. LRB No. Used [employer]ARD [employer] [id number] POWERPORT CLEARVUE AIRGUARD 8FR 1 LUMEN LIGHTWEIGHT INTERMEDIATE LATEX FREE - [id number] Other - see comments [employer]ARD [employer] [id number] POWERPORT CLEARVUE AIRGUARD 8FR 1 LUMEN LIGHTWEIGHT INTERMEDIATE LATEX FREE [employer] Peripheral Vascular [id number] Right 1 Blood/Blood Products Transfused: 0 mls [...] Preoperative Assessment and Planning CPAP Clinic Location: [facility] The night before your surgery: * Do [...] your surgery: Vitamin E, Fish Oil (Lovaza, [place]seta 3), Herbal medicines, Diet Pills ?? If [...] 4:28 PM CDT Comment:Breast Center Narrative PATHOLOGY [facility] - 01/17/2018 4:28 PM CDT EPIC results best viewed via link to PDF [facility] [place] [address] SURGICAL PATHOLOGY REPORT FINAL Patient Name: ?? ALEAH GERBER Gender: ??F : ??1955 (Age: 62) Address: ??[address] [place] [address] ??[id number] Hospital #: ??[id number] Taken:01/14/2018 Received:01/14/2018 Reported: 01/17/2018 Patient Type: [facility] SDS ?? Service: Surgery Location: [facility] Physician(s): ??Hortencia Warren M.D. Diagnosis: A. Lymph [...] for permanents, by Tito Jones MLT, PA ([facility]) Microscopic Description and Comment: The result [...] and 2 cm from the medial edge. ??Automation Design Engineer sections as follows: B1-B2 closest medial edge, [...] with wire-guided localization ? Lymph node sampling: ?[place] lymph node(s) ? Tumor site invasive carcinoma: [...] involvement: ?All lymph nodes are negative ? [place] node evaluation: ?H&E, multiple levels ? Response [...] determined by the Surgical Pathology Department at [facility] as part of an ongoing quality assurance consultant program and in compliance with federally mandated [...] determined by the Surgical Pathology Department of [facility]. ??It has not been cleared or approved by the U. S. Food and Drug Administration. IMAGES AND SCANNED DOCUMENTS, IF INCLUDED, ONLY VIEWABLE IN PDF VERSION OF REPORT us Kianna Bunch MD PhD LAB PATHOLOGY ORDERABLES F inal Result PATHOLOGY [facility] 3rd Floor [place], [place] [phone] * [place] Fluoroscopy < 1 Hour (01/14/2018 4:01 PM CDT) Narrative RAD_PACS_[facility] - 01/14/2018 4:04 PM CDT The images [...] 01/14/2018 documented in this encounter Care Teams Monument Carver Relationship Specialty Start Date End Date Ravi Smith MD PCP - General 11/04/17 09/27/21 Aft, Kianna Machado MD PhD [address] [place] [address] Surgeon Surgical Oncology 11/22/17 Santiago Gilbert MD [address] [place] [address] Tip Scourer Gastroenterology 11/22/17 documented as of this encounter
--- OUTSIDE RECORDS SUMMARY | 2024-04-24 15:03 | XMS_ITS | Encounter Summary ---
Author Organization [facility] Address [address] [place] [address] Phone Care Team Providers Care Sunday [employer] Missionary Name Role Phone Ravi Smith MD Primary Care Provider [phone] Aft, Kianna Machado MD PhD Unavailable [phone] Santiago Gilbert MD Unavailable [phone] Encounter Details Date Type Department Care Team (Late st Contact Info) Description 01/07/2018 Telephone [facility] Oncology [address] [place] [address] Shruti Tang Social History Tobacco Use Types Packs/Day Years Used Date Smoking Tobacco: Former Cigarettes 2015 Smokeless Tobacco: Never Alcohol Use Standard Drinks/Week Comments No 0 (1 standard drink = 0.6 oz pur e alcohol) socially Comments No Sex and Gender Information Value Date Recorded Sex Assigned at Not on file 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
--- OUTSIDE RECORDS SUMMARY | 2024-04-24 15:03 | XMS_ITS | Encounter Summary ---
Author Organization [facility] Address [address] [place] [address] Phone Care Team Providers Care Bindery Machine Tender Name Role Phone Ravi Smith MD Primary Care Provider [phone] Aft, Kianna Machado MD PhD Unavailable [phone] Santiago Gilbert MD Unavailable [phone] Reason for Visit * Reason Onset Date Comments Patient asking for a return call from Sue CAIN 01/03/2018 Encounter Details Date Type Department Care Team (Late st Contact Info) Description 01/03/2018 Telephone [facility] Surgery [facility] [place] [address] Fatemeh Olivo BS Patient asking for a [...] on file 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
--- OUTSIDE RECORDS SUMMARY | 2024-04-24 15:03 | XMS_ITS | Encounter Summary ---
Author Organization [facility] Healthcare Address [address] [place] [address] Care Team Providers Care Mental Measurements Teacher Name Role Phone Ravi Smith MD Primary Care Provider [phone] Encounter Details Date Type Department Care Team (Latest Contact Info) Description 11/11/2017 11:58 AM CDT - 11/11/2017 11:59 PM CDT Hospital Encounter [facility] Radiology [facility] [address] [place] [address] Discharge Disposition: Discharge to home or self care Social History Tobacco Use Types Packs/Day Years Used Date Smoking Tobacco: Never Assessed Comments Unknown Sex and Gender Information Value Date Recorded Sex Assigned at Not on file 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 ??There will be no report generated by a [facility] Radiologist. Narrative [facility]_PACS_[facility] - 11/11/2017 11:58 AM CDT EXAMINATION: ??Images For Reference Purposes Only us Aguila Loza DO IMG MAMMO PROCEDURES Fi nal Result [facility]ACS[facility] documented in this encounter Visit Diagnoses Not on filedocumented in this encounter Care Teams Mental Measurements Teacher Relationship Specialty Start Date End Date Ravi Smith MD PCP - General 11/04/17 09/27/21 documented as of this encounter
--- OUTSIDE RECORDS SUMMARY | 2024-04-24 15:03 | XMS_ITS | Encounter Summary ---
Author Organization [facility] Healthcare Address [address] [place] [address] Care Team Providers Care Newspaper Writer Name Role Phone Ravi Smith MD Primary Care Provider [phone] Encounter Details Date Type Department Care Team (Latest Contact Info) Description 11/11/2017 11:58 AM CDT - 11/11/2017 11:59 PM CDT Hospital Encounter [facility] Radiology [facility] [address] [place] [address] Discharge Disposition: Discharge to home or self care Social History Tobacco Use Types Packs/Day Years Used Date Smoking Tobacco: Never Assessed Comments Unknown Sex and Gender Information Value Date Recorded Sex Assigned at Not on file 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 ??There will be no report generated by a [facility] Radiologist. Narrative RAD_PACS_[facility] - 11/11/2017 11:58 AM CDT EXAMINATION: ??Images For Reference Purposes Only Procedure Note ProviderMary MD - 11/11/2017 EXAMINATION: Images For Reference Purposes Only IMPRESSION:These images are for Reference purposes only and have not beenreviewed by [facility] Radiology. There will be no reportgenerated by a [facility] Radiologist. us Aguila Loza DO IMG MAMMO PROCEDURES Fi nal Result [facility] documented in this encounter Visit Diagnoses Not on filedocumented in this encounter Care Teams Newspaper Writer Relationship Specialty Start Date End Date Ravi Smith MD PCP - General 11/04/17 09/27/21 documented as of this encounter
--- OUTSIDE RECORDS SUMMARY | 2024-04-24 15:03 | XMS_ITS | Encounter Summary ---
Author Organization [facility] Address [address] [place] [address] Phone Care Team Providers Care Pier Runner Name Role Phone Ravi Smith MD Primary Care Provider [phone] Tony Bunch MD PhD Unavailable [phone] Santiago Gilbert MD Unavailable [phone] Reason for Visit * Oncology (Routine) - Closed Specialty Diagnoses / Procedures Referred By Contronny t Referred To Contact Medical Oncology / Oncology Diagnoses Malignant neoplasm of colon, unspecified Procedures RETURN AftTony MD PhD Phone: tel: fax: Abbi Ventura MD [address] [place] [address] Phone: tel: fax: Referral ID Status Reason Start Date Expiration Date V isits Requested Visits Authorized [id number] Closed Specialty Services Required 11/26/2017 05/05/2018 99 99 Encounter Details Date Type Department Care Team (Late st Contact Info) Description 11/26/2017 4:00 PM CDT Office Visit [facility] Oncology [address] [facility] [address] [place] [id number] Abbi Ventura MD [address] [place] [address] [address] [place] [address] Malignant neoplasm of left breast [...] on file 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 She has been [...] labs, radiology and pathology reviewed in [facility] ASSESSMENT: Ms. Gerber is a 62-year-old woman [...] biopsyconsistent with invasive ductal carcinoma, ER negative, ME negative, HER-2 negative. Although breast ultrasound was [...] 01/28/2018 documented in this encounter Care Teams Pier Runner Relationship Specialty Start Date End Date Ravi Smith MD PCP - General 11/04/17 09/27/21 Aft, Tony Machado MD PhD [address] [place] [address] Surgeon Surgical Oncology 11/22/17 Santiago Gilbert MD [address] [place] [address] Belt Sewer Gastroenterology 11/22/17 documented as of this encounter
--- OUTSIDE RECORDS SUMMARY | 2024-04-24 15:03 | XMS_ITS | Encounter Summary ---
Author Organization [facility] Healthcare Address [address] [place] [address] Care Team Providers Care Media Liaison Officer Name Role Phone Ravi Smith MD Primary Care Provider [phone] Aft, Kianna Machado MD PhD Unavailable [phone] Santiago Gilbert MD Unavailable [phone] Encounter Details Date Type Department Care Team (Latest Contact Info) Description 01/03/2018 10:22 AM CDT - 01/06/2018 3:05 PM CDT Hospital Encounter [facility] [address] [place] [address] Dmitry Sanderson MD [address] [facility] [facility] [place] [phone] [address] [place] [address] Discharge Disposition: Discharge to home or self care Social History Tobacco Use Types Packs/Day Years Used Date Smoking Tobacco: Former Cigarettes 1 2015 Smokeless Tobacco: Never Alcohol Use Standard Drinks/Week Comments No 0 (1 standard drink = 0.6 oz pur e alcohol) socially Comments No Sex and Gender Information Value Date Recorded Sex Assigned at Not on file 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 She presented to the [facility] ED on 01/03/18 with abdominal pain, nausea [...] Time Provider Department Center 01/14/2018 8:00 AM [facility] N NM04 B[facility]N NucMed [facility] 01/14/2018 9:30 AM [facility] BHDG3 CAM Brst Img [facility] CAM IMG 01/27/2018 3:00 PM LAB, ONC ONC LAB [facility] ONC LAB 01/27/2018 3:30 PM Abbi Ventura MD ONC [facility] Oncology Contact Information for Follow-ups Other Follow-up Next Steps: Follow up Instructions: Please return to [facility] for routine post operative follow up as scheduled - call [phone] to schedule an appointment. Questions: Instructions for follow-up: Please return to [facility] for routine post operative follow up as scheduled - call [phone] to schedule an appointment. Cosigned by Shay [...] Will advance diet later Cosigned by Dmitry Sanderson MD at 01/03/2018 3:53 PM CDT Associated [...] discharged on 12/31/17. She presented to the [facility] ED on 01/03/18 with abdominal pain, nausea [...] CDT) Sodium 142 135 - 145 mmol/L [facility] Potassium, pl 3.8 3.3 - 4.9 mmol/L [facility] Chloride 106 97 - 110 mmol/L [facility] CO2 28 22 - 32 mmol/L [facility] Anion gap 8 2 - 15 mmol/L [facility] BUN 7(L) 8 - 25 mg/dL [facility] Creatinine 0.96 0.60 - 1.10 mg/dL [facility] Glucose 125 70 - 199 mg/dL [facility] [...] 2017. Calcium 9.1 8.5 - 10.3 mg/dL [facility] Blood specimen (specimen) 01/05/2018 11:40 PM CDT 01/06/2018 12:08 AM CDT Narrative [facility] - 01/06/2018 12:35 AM CDT us Dmitry Sanderson MD LAB BLOOD ORDERABLES Final Result [facility] [place] [address] * (ABNORMAL) CBC without differential (01/05/2018 11:40 PM CDT) WBC 8.8 3.8 - 9.9 K/cumm [facility] Hgb 10.8(L) 11.9 - 15.5 g/dL [facility] Hct 33.5(L) 35.6 - 45.5 % [facility] Plt 197 150 - 400 K/cumm [facility] MPV 10.3 9.1 - 12.3 fL [facility] RBC 3.70(L) 3.90 - 5.20 M/cumm [facility] MCV 90.5 81.3 - 96.4 fL [facility] MCH 29.2 27.1 - 33.3 pg [facility] MCHC 32.2(L) 32.3 - 35.7 g/dL [facility] RDW CV 13.5 11.1 - 14.9 % [facility] RDW SD 44.4 35.7 - 48.1 fL [facility] NRBC abs 0.00 0.00 - 0.01 K/cumm [facility] Blood specimen (specimen) 01/05/2018 11:40 PM CDT 01/06/2018 12:08 AM CDT Narrative [facility] - 01/06/2018 12:18 AM CDT us Dmitry Sanderson MD LAB BLOOD ORDERABLES Final Result [facility] [place] [address] * CT Abdomen Pelvis W Contrast (01/05/2018 [...] Potassium, bld 3.9 3.3 - 4.9 mmol/L [facility] Blood specimen (specimen) 01/05/2018 6:33 AM CDT 01/05/2018 7:18 AM CDT Narrative [facility] - 01/05/2018 7:26 AM CDT Dmitry Sanderson MD LAB BLOOD ORDERABLES Final Result [facility] Department [place] [address] * XR Abdomen Ap 1 Vw (01/03/2018 [...] * Phosphorus (01/03/2018 1:03 PM CDT) Pathologist [facility] Phosphorus, pl 2.6 2.3 - 4.5 mg/dL [facility] Comment:Hemolyzed; result ma y be falsely elevated. Blood specimen (specimen) 01/03/2018 1:03 PM CDT 01/03/2018 1:59 PM CDT Narrative [facility] - 01/03/2018 2:28 PM CDT Kj Puga MD LAB BLOOD ORDERABLES Final R esult Performing Organization Address City/[facility]/ZIP Co de Phone Number [facility] [place] [address] * Magnesium (01/03/2018 1:03 PM CDT) [facility] Magnesium 2.0 1.4 - 2.5 mg/dL [facility] Blood specimen (specimen) 01/03/2018 1:03 PM CDT 01/03/2018 1:59 PM CDT Narrative [facility] - 01/03/2018 2:28 PM CDT Result [facility] Kj Puga MD LAB BLOOD ORDERABLES Final R esult [facility] [place] [address] * (ABNORMAL) CBC without differential (01/03/2018 1:03 PM CDT) [facility] WBC 9.8 3.8 - 9.9 K/cumm [facility] Hgb 10.9(L) 11.9 - 15.5 g/dL [facility] Hct 32.9(L) 35.6 - 45.5 % [facility] Plt 233 150 - 400 K/cumm [facility] MPV 11.0 9.1 - 12.3 fL [facility] RBC 3.73(L) 3.90 - 5.20 M/cumm [facility] MCV 88.2 81.3 - 96.4 fL [facility] MCH 29.2 27.1 - 33.3 pg [facility] MCHC 33.1 32.3 - 35.7 g/dL [facility] RDW CV 13.7 11.1 - 14.9 % [facility] RDW SD 44.0 35.7 - 48.1 fL [facility] NRBC abs 0.00 0.00 - 0.01 K/cumm [facility] Blood specimen (specimen) 01/03/2018 1:03 PM CDT 01/03/2018 1:59 PM CDT Narrative [facility] - 01/03/2018 2:09 PM CDT us Kj Puga MD LAB BLOOD ORDERABLES Final R esult [facility] Department [place] [address] * Basic metabolic panel (01/03/2018 1:03 PM CDT) [facility] Sodium 139 135 - 145 mmol/L [facility] Potassium, pl See Comment 3.3 - 4.9 mmol/L [facility] Comment:CRDT; Grossly Hemoly zed sample; Unable to test. Chloride 105 97 - 110 mmol/L [facility] CO2 27 22 - 32 mmol/L [facility] Anion gap 7 2 - 15 mmol/L [facility] BUN 12 8 - 25 mg/dL [facility] Creatinine 0.78 0.60 - 1.10 mg/dL [facility] Glucose 91 70 - 199 mg/dL [facility] [...] 2017. Calcium 8.9 8.5 - 10.3 mg/dL [facility] Blood specimen (specimen) 01/03/2018 1:03 PM CDT 01/03/2018 1:59 PM CDT Narrative [facility] - 01/03/2018 2:28 PM CDT us Kj Puga MD LAB BLOOD ORDERABLES Final R esult [facility] [place] [address] documented in this encounter Visit Diagnoses Not [...] fluids infusing)1400 (Due)2021 (Not Given - Provider: Diaan Reid RN - Reason: Order parameters not [...] 01/03/2018 documented in this encounter Care Teams Media Liaison Officer Relationship Specialty Start Date End Date Ravi Smith MD PCP - General 11/04/17 09/27/21 Aft, Kianna Machado MD PhD [address] [place] [address] Surgeon Surgical Oncology 11/22/17 Santiago Gilbert MD [address] [place] [address] System Integration Engineer Gastroenterology 11/22/17 documented as of this encounter
--- OUTSIDE RECORDS SUMMARY | 2024-04-24 15:03 | XMS_ITS | Encounter Summary ---
Author Organization [facility] Healthcare Address [address] [place] [address] Care Team Providers Care Ladle Operator Name Role Phone Ravi Smith MD Primary Care Provider [phone] Aft, Kianna Machado MD PhD Unavailable [phone] Santiago Gilbert MD Unavailable [phone] Encounter Details Date Type Department Care Team (Late st Contact Info) Description 12/10/2017 3:45 PM CDT Lab [address] [place] [address] Preoperative testing Social History Tobacco Use Types Packs/Day Years Used Date Smoking Tobacco: Former Cigarettes 1 2015 Smokeless Tobacco: Never Alcohol Use Standard Drinks/Week Comments No 0 (1 standard drink = 0.6 oz pur e alcohol) socially Comments No Sex and Gender Information Value Date Recorded Sex Assigned at Not on file 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 Gender Identity Not on file Sexual Orientation [...] 3:14 PM CDT) ABO Rh O Positive [facility] Jose Roberto, indirect Negative [facility] Blood specimen (specimen) 12/10/2017 3:14 PM CDT 12/10/2017 6:42 PM CDT Narrative [facility] - 12/10/2017 8:51 PM CDT Has the patient had Daratumumab (Darzalex) in the past 6 months?->Unknown Bettina Morales NP LAB BLOOD BANK TEST ORDERABL ES Final Result [facility] [place] [address] * CBC without differential (12/10/2017 3:14 PM CDT) Pathologist [facility] WBC 8.5 3.8 - 9.9 K/cumm [facility] Hgb 12.3 11.9 - 15.5 g/dL [facility] Hct 37.6 35.6 - 45.5 % [facility] Plt 190 150 - 400 K/cumm [facility] MPV 10.6 9.1 - 12.3 fL [facility] RBC 4.12 3.90 - 5.20 M/cumm [facility] MCV 91.3 81.3 - 96.4 fL [facility] MCH 29.9 27.1 - 33.3 pg [facility] MCHC 32.7 32.3 - 35.7 g/dL [facility] RDW CV 13.3 11.1 - 14.9 % [facility] RDW SD 44.2 35.7 - 48.1 fL [facility] NRBC abs 0.00 0.00 - 0.01 K/cumm [facility] Blood specimen (specimen) 12/10/2017 3:14 PM CDT 12/10/2017 6:34 PM CDT Narrative [facility] - 12/10/2017 6:45 PM CDT Bettina Carmen FRENCH TRANSLATOR LAB BLOOD ORDERABLES Final R esult Performing Organization Address City/[facility]/ZIP Co de Phone Number [facility] [place] [address] * Basic metabolic panel (12/10/2017 3:14 PM CDT) Sodium 141 135 - 145 mmol/L [facility] Potassium, pl 3.9 3.3 - 4.9 mmol/L [facility] Chloride 106 97 - 110 mmol/L [facility] CO2 27 22 - 32 mmol/L [facility] Anion gap 8 2 - 15 mmol/L [facility] BUN 13 8 - 25 mg/dL [facility] Creatinine 0.93 0.60 - 1.10 mg/dL [facility] Glucose 79 70 - 199 mg/dL [facility] Comment: Interpretive Data Fasting glucose >/= [...] 2017. Calcium 9.1 8.5 - 10.3 mg/dL [facility] Blood specimen (specimen) 12/10/2017 3:14 PM CDT 12/10/2017 6:34 PM CDT [facility]ative [facility] - 12/10/2017 7:02 PM CDT Bettina Carmen FRENCH TRANSLATOR LAB BLOOD ORDERABLES Final R esult Performing Organization Address City/[facility]/ZIP Co de Phone Number [facility] [place] [address] documented in this encounter Visit Diagnoses Diagnosis Preoperative testing Unspecified pre-operative examination documented in this encounter Care Teams Ladle Operator Relationship Specialty Start Date End Date Ravi Smith MD PCP - General 11/04/17 09/27/21 Aft, Kianna Machado MD PhD [address] [place], [place] [id number] Surgeon Surgical Oncology 11/22/17 Santiago Gilbert MD [address] [place] [address] Pulmonary Care Nurse Gastroenterology 11/22/17 documented as of this encounter
--- OUTSIDE RECORDS SUMMARY | 2024-04-24 15:03 | XMS_ITS | Encounter Summary ---
Author Organization [facility] Address [address] [place] [address] Phone Care Team Providers Care Superintendent Pipelines Name Role Phone Ravi Smith MD Primary Care Provider [phone] Aft, Kianna Machado MD PhD Unavailable Santiago Gilbert MD Unavailable [phone] Encounter Details Date Type Department Care Team (Late st Contact Info) Description 12/06/2017 Orders Only [facility] Surgery [address] [facility] 5th [place] [id number] Aft, Kianna Machado MD PhD [address] [place] [address] Social History Tobacco Use Types Packs/Day Years Used Date Smoking Tobacco: Never Smokeless Tobacco: Never Alcohol Use Standard Drinks/Week Comments Yes 0 (1 standard drink = 0.6 oz pur e alcohol) socially Comments No Sex and Gender Information Value Date Recorded Sex Assigned at Not on file 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
--- OUTSIDE RECORDS SUMMARY | 2024-04-24 15:03 | XMS_ITS | Encounter Summary ---
Author Organization [facility] Address [address] [place] [address] Phone Care Team Providers Care Senior Software Quality Analyst Name Role Phone Ravi Smith MD Primary Care Provider [phone] Aft, Kianna Machado MD PhD Unavailable [phone] Santiago Gilbert MD Unavailable [phone] Encounter Details Date Type Department Care Team (Late st Contact Info) Description 12/03/2017 Orders Only [facility] Surgery [address] [facility] 5th [place] [address] Aft, Kianna Machado MD PhD [address] [place] [address] Social History Tobacco Use Types Packs/Day Years Used Date Smoking Tobacco: Never Smokeless Tobacco: Never Alcohol Use Standard Drinks/Week Comments Yes 0 (1 standard drink = 0.6 oz pur e alcohol) socially Comments No Sex and Gender Information Value Date Recorded Sex Assigned at Not on file 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
--- OUTSIDE RECORDS SUMMARY | 2024-04-24 15:03 | XMS_ITS | Encounter Summary ---
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
--- OUTSIDE RECORDS SUMMARY | 2024-04-24 15:03 | XMS_ITS | Encounter Summary ---
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
--- OUTSIDE RECORDS SUMMARY | 2024-04-24 15:03 | XMS_ITS | Encounter Summary ---
Author Organization [facility] Address [address] [place] [address] Phone Care Team Providers Care Bridge Club Manager Name Role Phone Ravi Smith MD Primary Care Provider [phone] Tony Bunch MD PhD Unavailable [phone] Santiago Gilbert MD Unavailable [phone] Reason for Referral * Diagnostic Imaging (Routine) - Closed Specialty Diagnoses / Procedures Referred By Vijaya simpson Referred To Contact Radiology Diagnoses Infiltrating ductal carcinoma of female breast, unspecified laterality (HCC) Procedures MRI Breast Bilateral W WO Contrast Tony Bunch MD PhD Phone: tel: fax: [facility] [address] [place] [address] Referral ID Status Reason Start Date Expiration Date Visits Re quested Visits Authorized [id number] Closed 11/18/2017 05/30/2019 1 1 Encounter Details Date Type Department Care Team (Late st Contact Info) Description 11/18/2017 Orders Only [facility] [address] 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
--- OUTSIDE RECORDS SUMMARY | 2024-04-24 15:03 | XMS_ITS | Encounter Summary ---
Author Organization [facility] Address [address] [place] [address] Care Team Providers Care Automation Consultant Name Role Phone Ravi Smith MD Primary Care Provider [phone] Reason for Referral * Diagnostic Imaging (Routine) - Closed Specialty Diagnoses / Procedures Referred By Vijaya simpson Referred To Contact Diagnoses Lump of breast, right Procedures US Breast Left Limited US Breast Right Limited Aguila Loza DO Phone: tel: fax: [address] [address] Referral ID Status Reason Start Date Expiration Date Visits Re quested Visits Authorized [id number] Closed 11/04/2017 05/16/2019 1 1 * Diagnostic Imaging (Routine) - Closed Specialty Diagnoses / Procedures Referred By Vijaya simpson Referred To Contact Diagnoses Lump of breast, right Procedures Diagnostic Mammogram Bilateral W Mathew Diagnostic Mammogram 2D Bilateral Aguila Loza DO Phone: tel: fax: [address] [address] Referral ID Status Reason Start Date Expiration Date Visits Re quested Visits Authorized [id number] Closed 11/04/2017 05/16/2019 1 1 Reason for Visit * Diagnostic Imaging (Routine) - Closed Specialty Diagnoses / Procedures Referred By Vijaya t Referred To Contact Diagnoses Lump of breast, right Procedures Diagnostic Mammogram Bilateral W Mathew Diagnostic Mammogram 2D Bilateral Aguila Loza DO Phone: tel: fax: [address] [address] Referral ID Status Reason Start Date Expiration Date Visits Re quested Visits Authorized [id number] Closed 11/04/2017 05/16/2019 1 1 Encounter Details Date Type Department Care Team (Latest Contact Info) Description 11/05/2017 12:42 PM CDT - 11/05/2017 11:59 PM CDT Hospital Encounter [facility] Breast [facility]) [address] [place] [address] Aguila Loza DO [address] [facility] [address] [place], [place] [id number] Lump of breast, right Discharge Disposition: Discharge to home or self care Social History Tobacco Use Types Packs/Day Years Used Date Smoking Tobacco: Never Assessed Comments Unknown Sex and Gender Information Value Date Recorded Sex Assigned at Not on file 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 ??This facility will [...] identified on recent CT scan performed at [facility]. COMPARISON: No comparison mammogram available. TECHNIQUE: ?? Full field digital mammographic views of BOTH breasts were performed, including computer aided detection (CAD) and BILATERAL digital breast tomosynthesis (DBT). ??Directed ultrasound evaluation of the LEFT breast was performed by a trained coal equipment operator and Dr. Perla Azar. BREAST PARENCHYMAL COMPOSITION: [...] identified on recent CT scan performed at [facility]. COMPARISON: No comparison mammogram available. TECHNIQUE: Full field digital mammographic views of BOTH breasts were performed, including computer aided detection (CAD) and BILATERAL digital breast tomosynthesis (DBT). Directed ultrasound evaluation of the LEFT breast was performed by a trained coal equipment operator and Dr. Perla Azar. BREAST PARENCHYMAL COMPOSITION: [...] been scheduled to return to the [facility] for biopsy. This facility will contact the [...] been scheduled to return to the [facility] for biopsy. ??This facility will [...] identified on recent CT scan performed at [facility]. COMPARISON: No comparison mammogram available. TECHNIQUE: ?? Full field digital mammographic views of BOTH breasts were performed, including computer aided detection (CAD) and BILATERAL digital breast tomosynthesis (DBT). ??Directed ultrasound evaluation of the LEFT breast was performed by a trained coal equipment operator and Dr. Perla Azar. BREAST PARENCHYMAL COMPOSITION: [...] identified on recent CT scan performed at [facility]. COMPARISON: No comparison mammogram available. TECHNIQUE: Full field digital mammographic views of BOTH breasts were performed, including computer aided detection (CAD) and BILATERAL digital breast tomosynthesis (DBT). Directed ultrasound evaluation of the LEFT breast was performed by a trained coal equipment operator and Dr. Perla Azar. BREAST PARENCHYMAL COMPOSITION: [...] been scheduled to return to the [facility] for biopsy. This facility will contact the referring clinician's office for an order. OVERALL FINAL ASSESSMENT: BI-RADS Category 5: Highly Suggestive of Malignancy. Electronically signed by: Perla Azar M.D. Aguila Loza DO IMG MAMMO PROCEDURES Fi nal Result documented in this encounter Visit Diagnoses Diagnosis Lump of breast, right documented in this encounter Care Teams Automation Consultant Relationship Specialty Start Date End Date Ravi Smith MD PCP - General 11/04/17 09/27/21 documented as of this encounter
--- OUTSIDE RECORDS SUMMARY | 2024-04-24 15:03 | XMS_ITS | Encounter Summary ---
Author Organization [facility] Address [address] [place] [address] Phone Care Team Providers Care Medical Coder Name Role Phone Ravi Smith MD Primary Care Provider [phone] Aft, Kianna Machado MD PhD Unavailable [phone] Santiago Gilbert MD Unavailable [phone] Reason for Visit * Reason Onset Date Comments Follow-up 01/02/2018 Encounter Details Date Type Department Care Team (Late st Contact Info) Description 01/02/2018 Telephone [facility] 8th [place] [address] [place] [address] Dmitry Sanderson MD [address] [facility] [phone] [place] [address] Follow-up Social History Tobacco Use Types Packs/Day Years Used Date Smoking Tobacco: Former Cigarettes 2015 Smokeless Tobacco: Never Alcohol Use Standard Drinks/Week Comments No 0 (1 standard drink = 0.6 oz pur e alcohol) socially Comments No Sex and Gender Information Value Date Recorded Sex Assigned at Not on file 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
--- OUTSIDE RECORDS SUMMARY | 2024-04-24 15:03 | XMS_ITS | Encounter Summary ---
Author Organization [facility] Healthcare Address [address] [place] [address] Care Team Providers Care Grad Intern Name Role Phone Ravi Smith MD Primary Care Provider [phone] Kianna Bunch MD PhD Unavailable [phone] Santiago Gilbert MD Unavailable [phone] Reason for Visit * Diagnostic Imaging (Routine) - Closed Specialty Diagnoses / Procedures Referred By Vijaya simpson Referred To Contact Radiology Diagnoses Infiltrating ductal carcinoma of female breast, unspecified laterality (HCC) Procedures MRI Breast Bilateral W WO Contrast Aileent, Kianna Machado MD PhD Phone: tel: fax: [address] [address] Referral ID Status Reason Start Date Expiration Date Visits Re quested Visits Authorized [id number] Closed 11/18/2017 05/30/2019 1 1 Encounter Details Date Type Department Care Team (Latest Contact Info) Description 11/26/2017 11:18 AM CDT - 11/26/2017 11:59 PM CDT Hospital Encounter [facility] [address] [place] [phone] Kianna Bunch MD PhD [address] [place] [address] Discharge Disposition: Discharge to home or self care Social History Tobacco Use Types Packs/Day Years Used Date Smoking Tobacco: Never Smokeless Tobacco: Never Alcohol Use Standard Drinks/Week Comments Yes 0 (1 standard drink = 0.6 oz pur e alcohol) socially Comments No Sex and Gender Information Value Date Recorded Sex Assigned at Not on file 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
--- OUTSIDE RECORDS SUMMARY | 2024-04-24 15:03 | XMS_ITS | Encounter Summary ---
Author Organization [facility] Address [address] [place] [address] Phone Care Team Providers Care Joint Setter Name Role Phone Ravi Smith MD Primary Care Provider [phone] Aft, Kianna Machado MD PhD Unavailable [phone] Santiago Gilbert MD Unavailable [phone] Encounter Details Date Type Department Care Team (Late st Contact Info) Description 11/27/2017 4:50 PM CDT Office Visit [facility] [address] [place] [address] [place] Social History Tobacco Use Types Packs/Day Years Used Date Smoking Tobacco: Never Smokeless Tobacco: Never Alcohol Use Standard Drinks/Week Comments Yes 0 (1 standard drink = 0.6 oz pur e alcohol) socially Comments No Sex and Gender Information Value Date Recorded Sex Assigned at Not on file 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 [facility], ?[place], [place] ??[address] Gender: ??F : ??1955 (Age: 62) Hospital #: ??[id number] Patient Type: ??WU Location: ??[facility] OUTRE Taken: ??11/27/2017 Received: ??11/27/2017 Accessioned: ??11/28/2017 Reported: ??11/29/2017 Physician(s): Abbi Ventura M.D. [facility] Department of Pathology [address] [place], [place] [address] P: [phone] F: [phone] Histology: [phone] Diagnosis: Consult material received from [place], [place] (OSC #[id number]; 10/22/2017) Large intestine, ascending colon, biopsy ([facility]C #[id number]) ? - Superficial fragments of tubular adenoma Large intestine, rectum, polypectomy (OSC #[id number]) ? - Fragments of tubular adenoma - Separate superficial fragments of serrated polyp, uncertain whether it represents hyperplastic polyp or a sessile serrated adenoma Large intestine, cecum, polypectomy (OSC #[id number]) ? - Fragments of tubular adenoma Large intestine, ascending colon, polypectomy (OSC #[id number]) ? - Fragments of tubular adenoma - Separate fragments of sessile serrated adenoma Large intestine, transverse colon, polypectomy (OSC #[id number]) ? -Tubular adenoma Large intestine, descending colon, mass, endoscopic biopsy (OSC #[id number]) ? - Invasive, moderately differentiated adenocarcinoma [...] Received for review are thirteen slides labeled [id number], accompanied by a corresponding pathology report. ??The material originates from [place], [place]. Selected slide(s) may be digitally scanned for our files, and all materials are returned to the referring institution, along with a copy of our final report. Any testing required for diagnostic purposes was performed in the Department of Pathology and Immunology at [facility], [address] [place] [address] CLIA # [id number] The performance characteristics of the testing cited in this report (if any) were determined by the ??[facility] Department of Pathology and Immunology [facility], as part of an ongoing quality control tester program and in compliance with federally [...] and the performance characteristics determined by the [facility], [facility] Department of Pathology and Immunology. ??It has not been cleared or approved by the U.S. Food and Drug Administration. ??Any test designated as LDT was developed and its performance characteristics determined by [facility]. It has not been cleared [...] on filedocumented in this encounter Care Teams Joint Setter Relationship Specialty Start Date End Date Ravi Smith MD PCP - General 11/04/17 09/27/21 Aft, Kianna Machado MD PhD [address] [facility] [place], [place] [id number] Surgeon Surgical Oncology 11/22/17 Santiago Gilbert MD [address] [place] [address] Pullman Car Clerk Gastroenterology 11/22/17 documented as of this encounter
--- OUTSIDE RECORDS SUMMARY | 2024-04-24 15:03 | XMS_ITS | Encounter Summary ---
Author Organization [facility] Address [address] [place] [address] Phone Care Team Providers Care Edge Blacker Name Role Phone Ravi Smith MD Primary Care Provider [phone] Aft, Kianna Machado MD PhD Unavailable [phone] Santiago Gilbert MD Unavailable [phone] Encounter Details Date Type Department Care Team (Late st Contact Info) Description 12/23/2017 Telephone [facility] Oncology [address] [place] [address] Shruti Tang Social History Tobacco Use Types Packs/Day Years Used Date Smoking Tobacco: Former Cigarettes 2015 Smokeless Tobacco: Never Alcohol Use Standard Drinks/Week Comments No 0 (1 standard drink = 0.6 oz pur e alcohol) socially Comments No Sex and Gender Information Value Date Recorded Sex Assigned at Not on file 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
--- OUTSIDE RECORDS SUMMARY | 2024-04-24 15:03 | XMS_ITS | Encounter Summary ---
Author Organization [facility] Address [address] [place] [address] Phone Care Team Providers Care Script Artist Name Role Phone Ravi Smith MD Primary Care Provider [phone] Aft, Kianna Machado MD PhD Unavailable [phone] Santiago Gilbert MD Unavailable [phone] Reason for Visit * Reason Comments Patient Education Encounter Details Date Type Department Care Team (Late st Contact Info) Description 12/10/2017 1:00 PM CDT Office Visit [facility] Surgery [address] [place] [address] 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
--- OUTSIDE RECORDS SUMMARY | 2024-04-24 15:03 | XMS_ITS | Encounter Summary ---
Author Organization [facility] Address [address] [place] [address] Phone Care Team Providers Care Journeyman Pipe Fitter Name Role Phone Ravi Smith MD Primary Care Provider [phone] Reason for Visit * Reason Comments Initial Consult New cancer diagnosis LEFT Breast Encounter Details Date Type Department Care Team (Late st Contact Info) Description 11/18/2017 2:40 PM CDT Office Visit [facility] Surgery [address] [place] [address] [place] [id number] Aft, Kianna Machado MD PhD [address] [place] [address] Malignant neoplasm of upper-inner quadrant of left [...] on file Legal Sex 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 CHIEF COMPLAINT: Aleah Gerber is a 62 y.o. female [...] MD I have seen and examined Aleah Gerber with the resident physician. We worked together [...] 03/23/2020 added in this encounter Care Teams Journeyman Pipe Fitter Relationship Specialty Start Date End Date Ravi Smith MD PCP - General 11/04/17 09/27/21 documented as of this encounter
--- OUTSIDE RECORDS SUMMARY | 2024-04-24 15:03 | XMS_ITS | Encounter Summary ---
Author Organization [facility] Healthcare Address [address] [place] [address] Care Team Providers Care Single Spindle Screw Machine Operator Name Role Phone Ravi Smith MD Primary Care Provider [phone] Aft, Kianna Machado MD PhD Unavailable [phone] Santiago Gilbert MD Unavailable [phone] Encounter Details Date Type Department Care Team (Latest Contact Info) Description 12/27/2017 12:07 PM CDT - 12/31/2017 8:00 PM CDT Hospital Encounter [facility] [address] [place] [address] Nicole López MD [address] [facility] [phone] [place] [address] Malignant neoplasm of colon, unspecified part of [...] file Legal 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 Gender Identity Not on file Sexual [...] Care Physician at Discharge: Ravi Smith MD [phone] Admission Date: 12/27/2017 Discharge Date: 12/31/2017 Admission Location: [facility] Primary Discharge Diagnosis: Distal transverse colon [...] Order Current Status Surgical pathology Collected (12/27/17 5798) Operative Procedures Performed: Procedure(s): RESECTION LEFT COLON [...] Time Provider Department Center 01/14/2018 8:00 AM [facility] N NM04 BJN NucMed [facility] North Ca 01/14/2018 9:30 AM [facility] BHDG3 CAM Brst Img [facility] CAM IMG 01/27/2018 3:00 PM LAB, COTY [...] CDT 12/30/17 1322 Referral Data Referral Source Doctor Of Radiology Referral Reason Discharge Planning Patient Information Support System Spouse/Significant Other Support system contact info (name, phone, availablity) Dat dukes Prior Level of Functioning Living Arrangement House (lives with spouse, bedroom on main level) Potential Discharge Needs Discharge Potential no needs identified Anticipated discharge level of care Return Home Communications Fiduciary Responsibility Patient/Designated decision maker was informed of [facility] fiduciary relationship as necessary 12/30/17 1322 Referral Data Referral Source Doctor Of Radiology Referral Reason Discharge Planning Patient Information Support System Spouse/Significant Other Support system contact info (name, phone, availablity) spouseDat Prior Level of Functioning Living Arrangement House (lives with spouse, bedroom on main level) Potential Discharge Needs Discharge Potential no needs identified Anticipated discharge level of care Return Home Communications Fiduciary Responsibility Patient/Designated decision maker was informed of [facility] fiduciary relationship as necessary 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 Address and phone verified to face sheet. Patient lives with spouse, Dat, for support. He can be reached at [phone]. Daughter, Debbi, also lives close. Plan Includes: Discharge to home. No HHC or DME needs identified. Insurance verified as: [employer] Admit Source: non healthcare PCP: verified as Dr. Smith Pharmacy: [facility] Based on a comprehensive family assessment, assistance [...] lap left hemicolectomyon 12/27. Plan - D/c HAND PATCHER - PO pain meds - HLIV - [...] ambulate, tolerate PO Summary: Patient says that HAND PATCHER is controlling her pain. She is ambulating [...] VS. Summary: VSS, and pain managed through HAND PATCHER. * Op Note - Nicole López MD [...] no bleeding and this returned clear. A [id number] functional end-to-end double stapled anastomosis was performed [...] and closing). Nicole López MD, FACS, FASCRS precision lens technician Section of Colon & Rectal Surgery [facility] [phone] Dictated note was generated using voice-visual supervisor technology and some variance may result. documented [...] [facility] Neutrophil pct 63.0 % [facility] Comment: Interpretive Data Percent cell count reference ranges are not reported, since discordance with absolute values may lead to misinterpretation of CBC data. Current Interpretive Data was last revised on 2017. Imm gran pct 0.6 % [facility] Comment: Interpretive Data Percent cell count reference ranges are not reported, since discordance with absolute values may lead to misinterpretation of CBC data. Current Interpretive Data was last revised on 2017. Lymphocyte pct 24.8 % [facility] Comment: Interpretive Data Percent cell count reference ranges are not reported, since discordance with absolute values may lead to misinterpretation of CBC data. Current Interpretive Data was last revised on 2017. Monocyte pct 6.1 % [facility] Comment: Interpretive Data Percent cell count [...] revised on 2017. Basophil pct 0.5 % [facility] Comment: Interpretive Data Percent cell count reference ranges are not reported, since discordance with absolute values may lead to misinterpretation of CBC data. Current Interpretive Data was last revised on 2017. Blood specimen (specimen) 12/30/2017 10:33 PM CDT 12/30/2017 11:31 PM CDT Narrative [facility] - 12/30/2017 11:44 PM CDT Marie Dutton EDGE BONDER LAB BLOOD ORDERABLES Final Res ult [facility] Department [place] [address] * Basic metabolic panel (12/30/2017 10:33 PM CDT) Sodium 141 135 - 145 mmol/L [facility] Potassium, pl 3.8 3.3 - 4.9 mmol/L [facility] Chloride 108 97 - 110 mmol/L [facility] CO2 24 22 - 32 mmol/L [facility] Anion gap 10 2 - 15 mmol/L [facility] BUN 13 8 - 25 mg/dL [facility] Creatinine 0.95 0.60 - 1.10 mg/dL [facility] Glucose 85 70 - 199 mg/dL [facility] [...] 2017. Calcium 8.7 8.5 - 10.3 mg/dL [facility] Blood specimen (specimen) 12/30/2017 10:33 PM CDT 12/30/2017 11:31 PM CDT Narrative [facility] - 12/30/2017 11:56 PM CDT us Marie Dutton EDGE BONDER LAB BLOOD ORDERABLES Final Res ult [facility] Department [place] [address] * (ABNORMAL) CBC with auto differential (12/30/2017 10:33 PM CDT) Pathologist [facility] WBC 7.8 3.8 - 9.9 K/cumm [facility] Hgb 10.4(L) 11.9 - 15.5 g/dL [facility] Hct 32.1(L) 35.6 - 45.5 % [facility] Plt 161 150 - 400 K/cumm [facility] MPV 10.3 9.1 - 12.3 fL [facility] RBC 3.55(L) 3.90 - 5.20 M/cumm [facility] MCV 90.4 81.3 - 96.4 fL [facility] MCH 29.3 27.1 - 33.3 pg [facility] MCHC 32.4 32.3 - 35.7 g/dL [facility] RDW CV 13.6 11.1 - 14.9 % [facility] RDW SD 45.1 35.7 - 48.1 fL [facility] NRBC abs 0.00 0.00 - 0.01 K/cumm [facility] Blood specimen (specimen) 12/30/2017 10:33 PM CDT 12/30/2017 11:31 PM CDT [facility] - 12/30/2017 11:44 PM CDT us Marie Dutton ED[employer]ONDER LAB BLOOD ORDERABLES Final Res ult [facility] [place] [address] * US Vein Duplex Upper Extremity Left Limited (12/30/2017 8:51 AM CDT) Anatomical Region Laterality Modality Vascular Left Ultrasound 12/30/2017 8:36 AM CDT Narrative 01/01/2018 11:54 PM CDT [facility] - Department of Vascular Surgery, Vascular Laboratory [address] [place] [address] Upper Extremity Venous Ultrasound Report Patient Name: ALEAH GERBER : 1955 (62y 5m) Study Date: 12/30/2017 8:36:46 AM Gender: F Tech: TT Location: [id number] Ref.Provider: NICOLE LÓPEZ Height(Cm): BSA: Weight(Kg): Quality: Adequate Order Provider: MARIE DUTTON Procedures: Vascular Report: Venous Duplex imaging was performed in the left upper extremity. The internal jugular, subclavian and axillary veins were evaluated for patency, spontaneity and phasicity with Doppler, compression and augmentation maneuvers. The brachial, basilic and cephalic veins were also evaluated with compression maneuvers. Indications: Localized edema. Findings: Performing Oil Burner Journeyman: Hira Tobar RVT. Left: Venous Doppler signals [...] performed. Electronically Signed By: Wojciech Whitaker MD [facility] 2018-01-01 23:54:29 CDT CC: CC: Procedure Note Wojciech Whitaker MD - 01/01/2018 [facility] - Department of Vascular Surgery,Vascular Laboratory [address] [place] [address] Upper Extremity Venous Ultrasound Report Patient Name: ALEAH GERBERPatient ID: [id number] : 1955 (62y 5m)Study Date: 12/30/2017 8:36:46 AM Gender: FAccession #: [id number] Tech: TTLocation: [id number] Ref.Provider: Arben LÓPEZ(Cm): BSA: Weight(Kg): Quality: AdequateOrder Provider: MARIE DUTTON Procedures: Vascular Report: Venous Duplex imaging was performed in the left upper extremity. Theinternal jugular, subclavian and axillary veins were evaluated for patency, spontaneity andphasicity with Doppler, compression and augmentation maneuvers. The brachial, basilic andcephalic veins were also evaluated with compression maneuvers. Indications: Localized edema. Findings: Performing Oil Burner Journeyman: Hira Tobar RVT. Left: Venous Doppler signals [...] performed. Electronically Signed By: Wojciech Whitaker MD [facility] 2018-01-01 23:54:29 CDT CC: CC: Marie Dutton EDGE BONDER IMG US PROCEDURES Final Result * XR [...] Sodium 136 135 - 145 mmol/L [facility] Potassium, pl 3.8 3.3 - 4.9 mmol/L [facility] Chloride 101 97 - 110 mmol/L [facility] CO2 24 22 - 32 mmol/L [facility] Anion gap 11 2 - 15 mmol/L [facility] BUN 23 8 - 25 mg/dL [facility] Creatinine 1.19(H) 0.60 - 1.10 mg/dL [facility] Glucose 103 70 - 199 mg/dL [facility] [...] 2017. Calcium 8.0(L) 8.5 - 10.3 mg/dL [facility] Blood specimen (specimen) 12/28/2017 10:56 PM CDT 12/28/2017 11:40 PM CDT Narrative [facility] - 12/29/2017 12:05 AM CDT us Nicole López MD LAB BLOOD ORDERABLES Final Result [facility] Department [place] [address] * (ABNORMAL) CBC without differential (12/28/2017 10:56 PM CDT) [facility] WBC 13.3(H) 3.8 - 9.9 K/cumm [facility] Hgb 10.0(L) 11.9 - 15.5 g/dL [facility] Hct 31.1(L) 35.6 - 45.5 % [facility] Plt 166 150 - 400 K/cumm [facility] MPV 10.4 9.1 - 12.3 fL [facility] RBC 3.40(L) 3.90 - 5.20 M/cumm [facility] MCV 91.5 81.3 - 96.4 fL [facility] MCH 29.4 27.1 - 33.3 pg [facility] MCHC 32.2(L) 32.3 - 35.7 g/dL [facility] RDW CV 13.7 11.1 - 14.9 % [facility] RDW SD 46.5 35.7 - 48.1 fL [facility] NRBC abs 0.00 0.00 - 0.01 K/cumm [facility] Blood specimen (specimen) 12/28/2017 10:56 PM CDT 12/28/2017 11:40 PM CDT Narrative [facility] - 12/28/2017 11:47 PM CDT Nicole López MD LAB BLOOD ORDERABLES Final Result Performing Organization Address City/[facility] Co de Phone Number [facility] [place] [address] * Potassium, whole blood (12/28/2017 11:01 AM CDT) Pathologist [facility] Potassium, bld 4.6 3.3 - 4.9 mmol/L [facility] Blood specimen (specimen) 12/28/2017 11:01 AM CDT 12/28/2017 11:20 AM CDT Narrative [facility] - 12/28/2017 11:34 AM CDT Nicole López MD LAB BLOOD ORDERABLES Final Result Performing Organization Address [facility] Co de Phone Number [facility] [place] [address] * (ABNORMAL) Differential, auto (12/28/2017 1:55 AM CDT) Neutrophil abs 11.4(H) 1.7 - 6.5 K/cumm [facility] Imm gran abs 0.1 0.0 - 0.1 K/cumm [facility] Lymphocyte abs 0.6(L) 0.8 - 3.3 K/cumm [facility] Monocyte abs 0.4 0.2 - 0.8 K/cumm [facility] Eosinophil abs 0.0 0.0 - 0.5 K/cumm [facility] Basophil abs 0.0 0.0 - 0.1 K/cumm [facility] Neutrophil pct 91.8 % [facility] Comment: Interpretive Data Percent cell count reference ranges are not reported, since discordance with absolute values may lead to misinterpretation of CBC data. Current Interpretive Data was last revised on 2017. Imm gran pct 0.6 % [facility] Comment: Interpretive Data Percent cell count reference ranges are not reported, since discordance with absolute values may lead to misinterpretation of CBC data. Current Interpretive Data was last revised on 2017. Lymphocyte pct 4.4 % [facility] Comment: Interpretive Data Percent cell count reference ranges are not reported, since discordance with absolute values may lead to misinterpretation of CBC data. Current Interpretive Data was last revised on 2017. Monocyte pct 3.0 % [facility] Comment: Interpretive Data Percent cell count reference ranges are not reported, since discordance with absolute values may lead to misinterpretation of CBC data. Current Interpretive Data was last revised on 2017. Eosinophil pct 0.1 % [facility] Comment: Interpretive Data Percent cell count reference ranges are not reported, since discordance with absolute values may lead to misinterpretation of CBC data. Current Interpretive Data was last revised on 2017. Basophil pct 0.1 % [facility] Comment: Interpretive Data Percent cell count reference ranges are not reported, since discordance with absolute values may lead to misinterpretation of CBC data. Current Interpretive Data was last revised on 2017. Blood specimen (specimen) 12/28/2017 1:55 AM CDT 12/28/2017 2:30 AM CDT Narrative [facility] - 12/28/2017 2:40 AM CDT us Nicole López MD LAB BLOOD ORDERABLES Final Result [facility] Department [place] [address] * (ABNORMAL) Basic metabolic panel (12/28/2017 1:55 AM CDT) Sodium 137 135 - 145 mmol/L [facility] Potassium, pl 5.0(H) 3.3 - 4.9 mmol/L [facility] Chloride 104 97 - 110 mmol/L [facility] CO2 23 22 - 32 mmol/L [facility] Anion gap 10 2 - 15 mmol/L [facility] BUN 20 8 - 25 mg/dL [facility] Creatinine 1.03 0.60 - 1.10 mg/dL [facility] Glucose 207(H) 70 - 199 mg/dL [facility] [...] 2017. Calcium 8.5 8.5 - 10.3 mg/dL [facility] Blood specimen (specimen) 12/28/2017 1:55 AM CDT 12/28/2017 2:30 AM CDT Narrative [facility] - 12/28/2017 2:55 AM CDT us Nicole López MD LAB BLOOD ORDERABLES Final Result [facility] Department [place] [address] * (ABNORMAL) CBC with auto differential (12/28/2017 1:55 AM CDT) [facility] WBC 12.4(H) 3.8 - 9.9 K/cumm [facility] Hgb 11.3(L) 11.9 - 15.5 g/dL [facility] Hct 34.9(L) 35.6 - 45.5 % [facility] Plt 168 150 - 400 K/cumm [facility] MPV 10.4 9.1 - 12.3 fL [facility] RBC 3.81(L) 3.90 - 5.20 M/cumm [facility] MCV 91.6 81.3 - 96.4 fL [facility] MCH 29.7 27.1 - 33.3 pg [facility] MCHC 32.4 32.3 - 35.7 g/dL [facility] RDW CV 13.4 11.1 - 14.9 % [facility] RDW SD 45.1 35.7 - 48.1 fL [facility] NRBC abs 0.00 0.00 - 0.01 K/cumm [facility] Blood specimen (specimen) 12/28/2017 1:55 AM CDT 12/28/2017 2:30 AM CDT Narrative [facility] - 12/28/2017 2:40 AM CDT Nicole López MD LAB BLOOD ORDERABLES Final Result Performing Organization Address City/State/[facility] Co de Phone Number [facility] Department [place] [address] * Surgical pathology (12/27/2017 4:23 PM CDT) Tissue (Colon, Resection, Tumor) 12/27/2017 4:23 PM CDT Narrative PATHOLOGY [facility] - 01/08/2018 4:24 PM CDT EPIC results best viewed via link to PDF [facility] Galilea Muñiz Laboratory [place] [address] SURGICAL PATHOLOGY REPORT FINAL WITH ADDENDUM Patient Name: ?? ALEAH GERBER Gender: ??F : ??1955 (Age: 62) Address: [address] [place] [place], [place] ??[address] Hospital #: ??[id number] Taken:12/27/2017 Received:12/30/2017 Reported: 01/08/2018 Patient Type: [facility] Inpatient ?? Service: Surgery Location: [facility] 6720 Physician(s): ??Nicole López M.D. Abbi Ventura M.D. [...] The BRAF Mutation-NGS test was performed at [facility] [employer], [address] [place] [address]. The performance characteristics of some immunohistochemical stains, fluorescence in-situ hybridization tests and immunophenotyping by flow cytometry cited in this report (if any) were determined by the Surgical Pathology Department at [facility] as part of an ongoing air quality manager program and in compliance with [...] by the Surgical Pathology Department of [facility]. ??It has not been cleared or approved by the U. S. Food and Drug Administration. IMAGES AND SCANNED DOCUMENTS, IF INCLUDED, ONLY VIEWABLE IN PDF VERSION OF REPORT us Nicole López MD LAB PATHOLOGY ORDERA BLES Final Result PATHOLOGY [facility] 3rd Floor [place], [place] [phone] * Type and screen (12/27/2017 1:27 PM CDT) ABO Rh O Positive [facility] Jose Roberto, indirect Negative [facility] Blood specimen (specimen) 12/27/2017 1:27 PM CDT 12/27/2017 1:35 PM CDT Narrative [facility] - 12/27/2017 2:55 PM CDT Has the patient had Daratumumab (Darzalex) in the past 6 months?->Unknown Bettina Morales NP LAB BLOOD BANK TEST ORDERABL ES Final Result [facility] [place] [address] documented in this encounter Visit Diagnoses Diagnosis [...] puff 1 puff, inhalation, 2 times daily (incident response lead), First dose on Sat12/27/17 at 2100, Indications: [...] sodium chloride 0.9% (premix) Continuous dose: None, HAND PATCHER dose: 0.2 mg, HAND PATCHER lockout: 10 Minutes, 1 hour limit: Other [...] Thrombosis Prevention 2127 (Given - Provider: Carri Rgigins RN) 2139 (Given - Provider: Carri Riggins [...] chloride 0.9% (premix) (CANCELED) Continuous dose: None, HAND PATCHER dose: 0.2 mg, HAND PATCHER lockout: 10 Minutes, 1 hour limit: Other [...] 12/27/2017 documented in this encounter Care Teams Single Spindle Screw Machine Operator Relationship Specialty Start Date End Date Ravi Smith MD PCP - General 11/04/17 09/27/21 Aft, Kianna Machado MD PhD [address] [place] [address] Surgeon Surgical Oncology 11/22/17 Santiago Gilbert MD [address] [place] [address] Field Hockey Coach Gastroenterology 11/22/17 documented as of this encounter
--- OUTSIDE RECORDS SUMMARY | 2024-04-24 15:03 | XMS_ITS | Encounter Summary ---
Author Organization [facility] Address [address] [place] [address] Phone Care Team Providers Care Wound Care Physician Name Role Phone Ravi Smith MD Primary Care Provider [phone] Aft, Kianna Machado MD PhD Unavailable [phone] Santiago Gilbert MD Unavailable [phone] Encounter Details Date Type Department Care Team (Late st Contact Info) Description 01/07/[address] 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
--- OUTSIDE RECORDS SUMMARY | 2024-04-24 15:03 | XMS_ITS | Encounter Summary ---
Author Organization [facility] Healthcare Address [address] [place] [address] Care Team Providers Care Percussion Teacher Name Role Phone Ravi Smith MD Primary Care Provider [phone] Reason for Referral * Diagnostic Imaging (Routine) - Closed Specialty Diagnoses / Procedures Referred By Vijaya simpson Referred To Contact Diagnoses Abnormal mammogram Procedures Mammo Post Clip Placement Left Aguila Loza DO Phone: tel: fax: [address] [phone] Referral ID Status Reason Start Date Expiration Date Visits Re quested Visits Authorized [id number] Closed 11/12/2017 05/24/2019 1 1 * Diagnostic Imaging (Routine) - Closed Specialty Diagnoses / Procedures Referred By Vijaya simpson Referred To Contact Diagnoses Abnormal mammogram Procedures US Guided Breast Biopsy Left Aguila Loza DO Phone: tel: fax: [address] [phone] Referral ID Status Reason Start Date Expiration Date Visits Re quested Visits Authorized [id number] Closed 11/05/2017 11/12/2017 1 1 Reason for Visit * Diagnostic Imaging (Routine) - Closed Specialty Diagnoses / Procedures Referred By Vijaya t Referred To Contact Diagnoses Abnormal mammogram Procedures US Guided Breast Biopsy Left Aguila Loza DO Phone: tel: fax: [address] [phone] Referral ID Status Reason Start Date Expiration Date Visits Re quested Visits Authorized [id number] Closed 11/05/2017 11/12/2017 1 1 Encounter Details Date Type Department Care Team (Latest Contact Info) Description 11/12/2017 1:23 PM CDT - 11/12/2017 11:59 PM CDT Hospital Encounter [facility] Breast Imaging 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 Wire Coater: Elie Bradley MD Sedation/Anesthesia: Local Diagnosis: Abnormal [...] by Tonny Broussard, RN, BSN of the [facility] on 11/13/2017. The patient has an [...] (breast imaging fellow) and Dr. Lutz (diagnostic residential air sealing technician) also participated in this examination. Procedure Note [...] (breast imaging fellow) and Dr. Lutz (diagnostic residential air sealing technician) also participated in this examination. IMPRESSION: Successful core needle biopsy of the LEFT breast. Pathology is pending. Electronically signed by: Perla Azar M.D. Aguila Loza [facility] MAMMO PROCEDURES Ed ited Result - Final [...] Tonny Broussard RN, BSN of the Breast [facility] on 11/13/2017. The patient has an appointment on 11/18/[address] Kianna Bunch who will direct surgical management. NOTE: ??Breast MRI is recommended. Edited by: Tonny Broussard Electronically signed by: Perla Azra M.D. Impressions 11/13/2017 2:37 PM CDT Successful [...] (breast imaging fellow) and Dr. Lutz (diagnostic residential air sealing technician) also participated in this examination. Procedure Note [...] (breast imaging fellow) and Dr. Lutz (diagnostic residential air sealing technician) also participated in this examination. IMPRESSION: Successful core needle biopsy of the LEFT breast. Pathology is pending. Electronically signed by: Perla Azar M.D. Aguila Loza DO IMG MAMMO PROCEDURES Ed ited Result - Final * Surgical pathology (11/12/2017 3:06 PM CDT) Tissue (Breast biopsy, needle core) 11/12/2017 3:06 PM CDT Comment:Left Breast Mass 9:0 0 7 CM FN - Bi-Rad 5 Narrative PATHOLOGY [facility] - 11/13/2017 11:08 AM CDT EPIC results best viewed via link to PDF [facility]a Muñiz Laboratory of Surgical [place] [address] SURGICAL PATHOLOGY REPORT FINAL WITH ADDENDUM Patient Name: ?? ALEAH GERBER Gender: ??F : ??1955 (Age: 62) Address: ??[address] [place] [address] Hospital #: ??[id number] Taken:11/12/2017 Received:11/12/2017 Reported: 11/13/2017 Patient Type: [facility] Ancillary ?? Service: Radiology Location: [facility] Physician(s): ??David Hunt D.O. Diagnosis: Breast, [...] Technical Notes Estrogen receptor (ER), progesterone receptor (TX), and HER2 were evaluated by immunohistochemistry (IHC) by morphometric analysis in routine formalin-fixed paraffin-embedded tissue using a proprietary polymer- based detection system and instrumentation by [employer] per train crew member's recommendation. The IHC results for ER (antibody SP1) and TX (antibody 1E2) were quantified and interpreted (positive vs negative) using the Levi score (total score range = 0 to 8; positive >2) (see: Mod Pathol 11:155, 1998; J Clin Oncol 17:1474, 1998; Mod Pathol 17:1545, 2004). Pathway Her2 is a trademark of [employer] The IHC results for Pathway Her2 [...] by the Surgical Pathology Department at [facility] as part of an ongoing manager quality improvement program and in compliance with federally mandated [...] LAB PATHOLOGY ORDERABLE S Final Result PATHOLOGY [facility] [address]rd Floor [place], [place] [phone] documented in this encounter Visit Diagnoses Diagnosis [...] Breast documented in this encounter Care Teams Percussion Teacher Relationship Specialty Start Date End Date Ravi Smith MD PCP - General 11/04/17 09/27/21 documented as of this encounter
--- OUTSIDE RECORDS SUMMARY | 2024-04-24 15:03 | XMS_ITS | Encounter Summary ---
Author Organization [facility] Address [address] [place] [address] Phone Care Team Providers Care Quality Control Lead Name Role Phone Ravi Smith MD Primary Care Provider [phone] Aft, Kianna Machado MD PhD Unavailable [phone] Santiago Gilbert MD Unavailable [phone] Reason for Visit * Reason Comments Colon Cancer Encounter Details Date Type Department Care Team (Late st Contact Info) Description 11/28/2017 2:45 PM CDT Office Visit [facility] [address] [facility] 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 Dmitry Sanedrson MD, FACS, FASCRS ham rolling machine operator Section of Colon & Rectal Surgery [facility] [phone] 11/29/2017 8:44 AM Dictated note was generated using voice-technical instructor course developer technology and some variance may result. documented in this encounter Plan of Treatment Not on file documented as of this encounter Visit Diagnoses Diagnosis Malignant neoplasm of transverse colon (CMS/HCC) (HCC)- Primary Malignant neoplasm of transverse colon Malignant neoplasm of upper-inner quadrant of left breast in female, estrogen receptor negative (HCC) documented in this encounter Care Teams Quality Control Lead Relationship Specialty Start Date End Date Ravi Smith MD PCP - General 11/04/17 09/27/21 Kianna Bunch MD PhD [address] [place] [address] Surgeon Surgical Oncology 11/22/17 Santiago Gilbert MD [address] [place] [address] Archeology Professor Gastroenterology 11/22/17 documented as of this encounter
--- OUTSIDE RECORDS SUMMARY | 2024-04-24 15:03 | XMS_ITS | Encounter Summary ---
Author Organization [facility] Healthcare Address [address] [place] [address] Care Team Providers Care First Coat Operator Name Role Phone Ravi Smith MD Primary Care Provider [phone] Aileent, Kianna Machado MD PhD Unavailable [phone] Santaigo Gilbert MD Unavailable [phone] Encounter Details Date Type Department Care Team (Late st Contact Info) Description 01/13/2018 Orders Only Radiology [address] [place] [address] Elie Bradley MD [address] [facility] [address] [place], [place] [id number] Social History Tobacco Use Types Packs/Day Years Used Date Smoking Tobacco: Former Cigarettes 2015 Smokeless Tobacco: Never Alcohol Use Standard Drinks/Week Comments Yes 0 (1 standard drink = 0.6 oz pur e alcohol) socially Comments No Sex and Gender Information Value Date Recorded Sex Assigned at Not on file 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
== END 2024-04-19 21:21 | disposition home or self-care (01) ==
PROVIDERS: Emergency Provider Registered Nurse; PCP Internal Medicine
DX: J15.9 Unspecified bacterial pneumonia (principal); J44.1 Chronic obstructive pulmonary disease with (acute) exacerbation; N39.0 Urinary tract infection, site not specified; B37.31 Acute candidiasis of vulva and vagina; Z79.899 Other long term (current) drug therapy; Z79.85 Long-term (current) use of injectable non-insulin antidiabetic drugs
CPT/HCPCS: 36415; 71275; 80053; 81001; 83605; 83735; 83880; 84484; 85025; 85610; 85730; 87040; 87086; 93005; 94640; 96365; 96368; 96375; 99284; J0456; J0696; J2919; Q9967

== ENCOUNTER 2024-12-10 13:03 | Outpatient (CLI) | payer MEDICARE, SELFPAY ==
--- OUTSIDE RECORDS SUMMARY | 2024-12-10 13:11 | XMS_ITS | Encounter Summary ---
Author Organization [facility] Address [address] [place] [address] Care Team Providers Care Tile Setter Name Role Phone Ravi Smith MD Primary Care Provider [phone] Encounter Details Date Type Department Care Team (Late st Contact Info) Description 12/11/2006 Outpatient Historical [facility] De Souza, Mirella Solorzano MD [address] [facility] [address] [address] Diffuse Cystic Mastopathy (Primary Dx) Social History Tobacco Use Types Packs/Day Years Used Date Smoking Tobacco: Never Assessed Comments Unknown Sex and Gender Information Value Date Recorded Sex Assigned at Not on file 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
--- OUTSIDE RECORDS SUMMARY | 2024-12-10 13:11 | XMS_ITS | Clinical Summary ---
Author Organization [facility] Address [address] [place] [address] Phone Care Team Providers Care Director Underwriter Sales Name Role Phone Ravi Smith MD Primary Care Provider [phone] Allergies Active Allergy Reactions Criticality Noted Date Comments Tetanus Toxoid Other (See Comments) 02/20/2018 Pain, swelling, fever at site Medications sertraline (ZOLOFT) 50 mg tablet Take 50 mg by mouth daily at bedtime . Active ALPRAZolam (XANAX) 0.25 mg tablet Take 0.25 mg by mouth 3 times daily as needed for Anxiety . Active fluticasone-vi lanterol (BREO ELLIPTA) 100-25 mcg/dose Disk with Device Take 1 Puff by inhalation daily. Active Cholecalcifero l, Vitamin D3, 2,000 unit Capsule Take 1 Tablet by mouth daily . Active bisacodyl (DULCOLAX) 5 mg Delayed Release tablet Take 5 mg by mouth 1 time daily as needed. 8 Active dexamethasone (DECADRON) 4 mg tablet Take 4 mg by mouth see administration instructions 1 tab on days 2-4 of chemo q 2 weeks.. 8 Active famotidine (PEPCID) 20 mg tablet Take 20 mg by mouth 2 times daily. Active lidocaine-pril ocaine (EMLA) 2.5-2.5 % Cream Apply to affected area 1 time daily as needed. 8 Active ondansetron (ZOFRAN) 8 mg Tablet Take 8 mg by mouth every 8 hours as needed. 8 Active polyethylene glycol (MIRALAX) 17 gram Powder in Packet Take 17 Grams by mouth 2 times daily. 8 Active aspirin (VIRA CHEWABLE) 81 mg Tablet, Chewable Chew and Swallow 1 Tablet (81 mg) by mouth daily with breakfast. 90 Tablet 02/21/2018 4:19 PM CDT 8 Active atorvastatin (LIPITOR) 20 mg tablet Take 1 Tablet (20 mg) by mouth daily at bedtime. 30 Tablet 02/21/2018 4:19 PM CDT 8 Active amLODIPine (NORVASC) 5 mg tablet Take 1 Tablet (5 mg) by mouth daily. 30 Tablet 02/21/2018 6:35 PM CDT 8 Active Active Problems Problem Noted Date Diagnosed Date Aphasia 02/20/2018 Right sided weakness 02/20/2018 Malignant neoplasm of ascending colon 02/20/2018 Malignant neoplasm of upper outer quadrant of breast in female, estrogen receptor negative 02/20/2018 History of TIA (transient ischemic attack) and s troke Immunizations Immunization Administration Dates Next Due Influenza Seasonal Unspecified Formulation IM Social History Tobacco Use Types Packs/Day Years Used Date Smoking Tobacco: Former Cigarettes 1 40 Smokeless Tobacco: Never Alcohol Use Standard Drinks/Week Comments No 0 (1 standard drink = 0.6 oz pur e alcohol) Comments Unknown Sex and Gender Information Value Date Recorded Sex Assigned at Not on file 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 Gender Identity Not on file Sexual Orientation Not on file Last Filed Vital Signs Vital Sign Reading Time Taken Comments Blood Pressure 171/77 02/21/2018 6:17 PM CDT Pulse 75 02/21/2018 4:31 PM CDT Temperature 37 C (98.6 F) 02/21/2018 4:31 PM CDT Respiratory Rate 18 02/21/2018 4:31 PM CDT Oxygen Saturation 95% 02/21/2018 4:31 PM CDT Inhaled Oxygen Concentration - - Weight 115.7 kg (255 lb 1.6 oz) 02/21/2018 4:10 AM CDT Height 175.3 cm (5' 9) 02/20/2018 7:56 PM CDT Body Mass Index 37.67 02/20/2018 7:56 PM CDT Plan of Treatment Health Maintenance Due Date Last Done Comments DTAP/TDAP/TD VACCINES (1 - Tdap) 1976 BREAST CANCER SCREENING 1997 PNEUMOCOCCAL VACCINE 50+ YEA RS (1 of 1 - PCV) 07/28/2007 ZOSTER VACCINE (1 of 2) 07/28/2007 RSV VACCINE (60+ or ) (1 - Risk 60-74 years 1-dose series) 2017 OSTEOPOROSIS SCREENING 2022 INFLUENZA VACCINE (#1) 2024 02/20/2018, 2017 Insurance [facility] BLUE PREFERRED Advance Directives For more information, please contact: [phone] * Full Code (Latest Code Status on File) Date Activated Date Inactivated Comments 02/20/2018 7:22 PM 02/21/2018 8:31 PM Care Teams Director Underwriter Sales Relationship Specialty Start Date End Date Ravi Smith MD PCP - General Family Practice 02/20/18
--- NOTE | 2024-12-10 13:39 | ECHO_ITS ---
Patient Info Name: Aleah Gerber Age: 69 years : 1955 Gender: Female Ht: 69 in Wt: 200 lbs BSA: 2.12 m2 HR: 89 bpm BP: 106 / 65 mmHg Technical Quality: Good Exam Date: 12/10/2024 1:50 PM Patient Status: O Admit Date: 12/10/2024 Exam Type: CA echo doppler color flow Complete two-dimensional, color flow and Doppler transthoracic echocardiogram is performed. Casket Assembler Metal: Vilma Anderson Attending Provider: Janel Byrnes [facility] Summary 1. Complete two-dimensional, color flow and Doppler transthoracic echocardiogram is performed. 2. Left ventricular chamber dimension is normal. 3. Left ventricular systolic function is normal, estimated at 60-65. 4. The left ventricular diastolic function is grade I diastolic dysfunction. 5. E/e' 7 is not elevated. 6. Left atrial chamber dimension is mildly enlarged. 7. There is trace mitral valve regurgitation. Left Ventricle E/e' 7 is not elevated. Left ventricular chamber dimension is normal. Left ventricular systolic function is normal, estimated at 60-65. The left ventricular diastolic function is grade I diastolic dysfunction. Right Ventricle Right ventricular chamber dimension is normal. Right ventricular systolic function is normal. Left Atria Left atrial chamber dimension is mildly enlarged. Right Atria Right atrial chamber dimension is normal. Aortic Valve The aortic valve is trileaflet. There is no aortic valve stenosis. There is no aortic valve regurgitation. Pulmonic Valve There is no pulmonic regurgitation. Mitral Valve There is no mitral valve stenosis. There is trace mitral valve regurgitation. Tricuspid Valve There is no tricuspid valve regurgitation. Pericardium/Pleural There is no pericardial effusion. Inferior Vena Cava Normal inferior vena cava with >50% collapse upon inspiration consistent with normal right atrial pressure, 5 mmHg. Aorta The aortic root size at the sinus of Valsalva is normal. Left Ventricular Outflow Tract Name Value Normal LVOT 2D LVOT Diameter 2.1 cm LVOT Doppler LVOT Peak Velocity 100 cm/s LVOT Peak Gradient 4 mmHg LVOT Mean Gradient 2 mmHg LVOT VTI 24 cm LVOT Stroke Volume 82 ml LVOT CO 7.3 l/min LVOT CI 3.4 l/min/m2 Pulmonic Valve Name Value Normal RVOT Doppler RVOT Peak Velocity 72 cm/s RVOT Peak Gradient 2 mmHg PV Doppler PV Peak Velocity 117 cm/s PV Peak Gradient 5 mmHg Mitral Valve Name Value Normal MV Diastolic Function MV E Peak Velocity 57 cm/s MV A Peak Velocity 110 cm/s MV E/A 0.5 MV Decel Time (PW) 443 ms MV Annular TDI MV E/e' (Septal) 8.8 MV E/e' (Lateral) 6.1 MV E/e' (Average) 7.4 Tricuspid Valve Name Value Normal Estimated PAP/RSVP RA Pressure 5 mmHg <=5 TV Annular TDI TV Lateral Brooke s' Velocity 8.7 cm/s >=9.5 Aortic Valve Name Value Normal AV Doppler AV Peak Velocity 125 cm/s AV Peak Gradient 6 mmHg AV Area (Cont Eq Per) 2.7 cm2 AV DI (Per) 0.80 AV Regurgitation 2D LVOT Area 3.4 cm2 Ventricles Name Value Normal LV Dimensions 2D/MM IVS Diastolic Thickness (2D) 0.9 cm 0.6-1.0 LVID Diastole (2D) 4.3 cm 3.8-5.2 LVIW Diastolic Thickness (2D) 1.1 cm 0.6-0.9 LVID Systole (2D) 3.1 cm 2.2-3.5 LVOT Diameter 2.1 cm LV Mass (2D Cubed) 140.57 g 67.00-162.00 LV Mass Index (2D Cubed) 66 g/m2 43-95 Relative Wall Thickness (2D) 0.51 <=0.42 LV Fractional Shortening/Ejection Fraction 2D/MM LV Fractional Shortening (2D) 27 % 27-45 LV EF (2D Teichholz) 53 % LV Diastolic Volume (4C MOD) 92 ml LV EF (4C MOD) 60 % LV Diastolic Volume (2C MOD) 78 ml LV EF (2C MOD) 58 % LV Diastolic Volume (BP MOD) 85 ml 46-106 LV Diastolic Volume Index (BP MOD) 40 ml/m2 29-61 LV Systolic Volume (BP MOD) 36 ml 14-42 LV Systolic Volume Index (BP MOD) 17 ml/m2 8-24 LV EF (BP MOD) 58 % 54-74 LV Diastolic Length (4C) 8.0 cm LV Systolic Length (4C) 7.1 cm LV Stroke Volume (4C MOD) 55 ml Atria Name Value Normal LA Dimensions LA Volume (4C A-L) 23 ml LA Volume (BP A-L) 25 ml RA Dimensions RA Systolic Major [place] Length (4C) 5.4 cm 2.2-2.8 RA Area (4C) 11.1 cm2 <=18.0 Report Signatures
== END 2024-12-10 13:04 | disposition home or self-care (01) ==
PROVIDERS: PCP Internal Medicine; Visit Provider Clinical Nurse Specialist
DX: R06.02 Shortness of breath (principal); Z92.21 Personal history of antineoplastic chemotherapy; C18.9 Malignant neoplasm of colon, unspecified
CPT/HCPCS: 93306